=== PATIENT | female | born 1940 | race American Indian/Alaskan Native ===

== ENCOUNTER 2021-04-15 16:57 | Inpatient (IN) | payer MEDICARE ==
--- NOTE | 2021-04-15 17:09 | Emergency Department Report ---
ED Altered Mental Status HPI - General Stated Complaint: STROKE PUI?: No Time Seen by Provider: 04/15/21 17:02 - History of Present Illness Initial Comments: CC: low blood sugar, altered mental status HPI: This is an 80-year-old female with history of hypertension, diabetes mellitus, [place], breast CA in remission, TIA who presents with hypoglycemia and altered mental status. Nephew at the bedside providing history. Patient is currently altered nonverbal. Patient spoke with nephew per phone. She felt her sugar was low. She informed her nephew that she was can get something to eat. Nephew did not hear from patient throughout the day. He has neighbor to check on her. Patient was altered. EMS found patient flat on her back in bed. She was not responsive. Blood sugar 38 per EMS. Patient received 1 ampoule of dextrose. She continued to be unresponsive. Patient is moaning with eyes deviated to the left initially. Patient is moving eyes and right upper extremity. However she continues to moan unintelligibly. MD Complaint: altered mental status, decreased responsiveness -: unknown (Sometime after 10:30 AM) Severity: severe Consistency of Symptoms: waxing and waning Context: diabetes - Related Data Allergies Allergy/AdvReac Type Severity Reaction Status Date / Time No Known Allergies Allergy Unverified 04/15/21 17:41 ED Review of Systems ROS: Stated complaint: STROKE Other details as noted in HPI Comment: Unobtainable due to pts medical conditions (Altered mental status) ED Past Medical Hx - Past Medical History Previous Medical History?: Yes Hx Hypertension: Yes Hx Heart Attack/AMI: Yes Hx Diabetes: Yes - Surgical History Past Surgical History?: Yes Hx Cholecystectomy: Yes Additional Surgical History: Double mastectomy ED Physical Exam - General Limitations: Altered Mental Status General appearance: lethargic, in distress (severe respiratory distress, stridorous respirations, ), other (Drooling moaning moving right arm, dazed, not making eye contact, no response to voice or noxious stimuli) - Head Head exam: Present: atraumatic, normocephalic - Eye Eye exam: Present: normal appearance - ENT ENT exam: Present: mucous membranes moist - Neck Neck exam: Present: normal inspection, full ROM - Respiratory Respiratory exam: Present: stridor, accessory muscle use (Abdominal retractions), prolonged expiratory, other. Absent: wheezes, rales, rhonchi - Cardiovascular Cardiovascular Exam: Present: regular rate, normal rhythm, normal heart sounds. Absent: systolic murmur, diastolic murmur, rubs, gallop - GI/Abdominal GI/Abdominal exam: Present: soft, distended, diminished bowel sounds - Extremities Exam Extremities exam: Present: pedal edema, other (Lower extremity nonpitting edema) - Neurological Exam Neurological exam: Present: altered, other (Nonverbal moaning) - Psychiatric Psychiatric exam: Present: flat affect - Skin Skin exam: Present: pallor, other (Cool to touch). Absent: rash ED Course Vital Signs 04/15/21 04/15/21 17:06 17:43 Pulse Rate 58 L 46 L Respiratory 21 Rate Blood Pressure 132/58 O2 Sat by Pulse 95 100 Oximetry - Reevaluation(s) Reevaluation #1: 04/15/21 18:10 I was informed by nurse that patient was biting her tongue and the ETT. Patient appeared to have repetitive movements of the right upper extremity. I suspect seizure activity. Patient was given lorazepam rocuronium and increased sedation with propofol Reevaluation #2: 04/15/21 19:28 Profound hypotension called to the bedside to to prevent discontinued - Intubation Time Out Performed: Yes Sedative: Etomidate Mg Given: 20 Paralytic: Succinylcholine Mg Given: 120 Laryngoscope: Mary Size: 4 Assist Device Used: fiberoptic device ET Tube Size: 7.5 Tube Secured Depth (cm): 24 Tube Secured Location: teeth Tube Placement Confirmation: visualized tube passing t Patient Tolerated Procedure: well, no complications Intubation Complications: none - Lab Data Result diagrams: 04/15/21 17:20 04/15/21 17:20 Lab Results 04/15/21 04/15/21 04/15/21 Range/Units 17:20 17:20 17:20 WBC 11.2 H (4.5-11.0) K/mm3 RBC 4.45 (3.65-5.03) M/mm3 Hgb 13.9 (10.1-14.3) gm/dl Hct 43.0 H (30.3-42.9) % MCV 97 (79-97) fl MCH 31 (28-32) pg MCHC 32 (30-34) % RDW 15.3 H (13.2-15.2) % Plt Count 214 (140-440) K/mm3 Lymph % (Auto) 12.8 L (13.4-35.0) % Mcminn % (Auto) 4.1 (0.0-7.3) % Eos % (Auto) 0.3 (0.0-4.3) % Baso % (Auto) 0.4 (0.0-1.8) % Lymph # (Auto) 1.4 (1.2-5.4) K/mm3 Mcminn # (Auto) 0.5 (0.0-0.8) K/mm3 Eos # (Auto) 0.0 (0.0-0.4) K/mm3 Baso # (Auto) 0.0 (0.0-0.1) K/mm3 Seg Neutrophils % 82.4 H (40.0-70.0) % Seg Neutrophils # 9.3 H (1.8-7.7) K/mm3 PT 12.2 (12.2-14.9) Sec. INR 0.91 (0.87-1.13) APTT 31.8 (24.2-36.6) Sec. Sodium 129 L (137-145) mmol/L Potassium 7.1 H* (3.6-5.0) mmol/L Chloride 91.9 L (98-107) mmol/L Carbon Dioxide 27 (22-30) mmol/L Anion Gap 17 mmol/L BUN 35 H (7-17) mg/dL Creatinine 2.8 H (0.6-1.2) mg/dL Estimated GFR 20 ml/min BUN/Creatinine Ratio 13 % Glucose 92 (65-100) mg/dL Lactic Acid (0.7-2.0) mmol/L Calcium 10.2 (8.4-10.2) mg/dL Total Bilirubin 0.30 (0.1-1.2) mg/dL AST 69 H (5-40) units/L ALT 36 (7-56) units/L Alkaline Phosphatase 84 (35-129) units/L Ammonia (25-60) umol/L Total Creatine Kinase (30-135) units/L Troponin T (0.00-0.029) ng/mL NT-Pro-B Natriuret Pep (0-900) pg/mL Total Protein 7.9 (6.3-8.2) g/dL Albumin 4.5 (3.9-5) g/dL Albumin/Globulin Ratio 1.3 % TSH (0.270-4.200) mlU/mL Salicylates (2.8-20.0) mg/dL Acetaminophen (10.0-30.0) ug/mL Plasma/Serum Alcohol (0-0.07) % 04/15/21 04/15/21 04/15/21 Range/Units 17:20 17:20 17:20 WBC (4.5-11.0) K/mm3 RBC (3.65-5.03) M/mm3 Hgb (10.1-14.3) gm/dl Hct (30.3-42.9) % MCV (79-97) fl MCH (28-32) pg MCHC (30-34) % RDW (13.2-15.2) % Plt Count (140-440) K/mm3 Lymph % (Auto) (13.4-35.0) % Mcminn % (Auto) (0.0-7.3) % Eos % (Auto) (0.0-4.3) % Baso % (Auto) (0.0-1.8) % Lymph # (Auto) (1.2-5.4) K/mm3 Mcminn # (Auto) (0.0-0.8) K/mm3 Eos # (Auto) (0.0-0.4) K/mm3 Baso # (Auto) (0.0-0.1) K/mm3 Seg Neutrophils % (40.0-70.0) % Seg Neutrophils # (1.8-7.7) K/mm3 PT (12.2-14.9) Sec. INR (0.87-1.13) APTT (24.2-36.6) Sec. Sodium (137-145) mmol/L Potassium (3.6-5.0) mmol/L Chloride (98-107) mmol/L Carbon Dioxide (22-30) mmol/L Anion Gap mmol/L BUN (7-17) mg/dL Creatinine (0.6-1.2) mg/dL Estimated GFR ml/min BUN/Creatinine Ratio % Glucose (65-100) mg/dL Lactic Acid 1.50 (0.7-2.0) mmol/L Calcium (8.4-10.2) mg/dL Total Bilirubin (0.1-1.2) mg/dL AST (5-40) units/L ALT (7-56) units/L Alkaline Phosphatase (35-129) units/L Ammonia 46.0 (25-60) umol/L Total Creatine Kinase (30-135) units/L Troponin T (0.00-0.029) ng/mL NT-Pro-B Natriuret Pep (0-900) pg/mL Total Protein (6.3-8.2) g/dL Albumin (3.9-5) g/dL Albumin/Globulin Ratio % TSH (0.270-4.200) mlU/mL Salicylates (2.8-20.0) mg/dL Acetaminophen (10.0-30.0) ug/mL Plasma/Serum Alcohol 0.02 (0-0.07) % 04/15/21 04/15/21 04/15/21 Range/Units 17:20 17:20 17:20 WBC (4.5-11.0) K/mm3 RBC (3.65-5.03) M/mm3 Hgb (10.1-14.3) gm/dl Hct (30.3-42.9) % MCV (79-97) fl MCH (28-32) pg MCHC (30-34) % RDW (13.2-15.2) % Plt Count (140-440) K/mm3 Lymph % (Auto) (13.4-35.0) % Mcminn % (Auto) (0.0-7.3) % Eos % (Auto) (0.0-4.3) % Baso % (Auto) (0.0-1.8) % Lymph # (Auto) (1.2-5.4) K/mm3 Mcminn # (Auto) (0.0-0.8) K/mm3 Eos # (Auto) (0.0-0.4) K/mm3 Baso # (Auto) (0.0-0.1) K/mm3 Seg Neutrophils % (40.0-70.0) % Seg Neutrophils # (1.8-7.7) K/mm3 PT (12.2-14.9) Sec. INR (0.87-1.13) APTT (24.2-36.6) Sec. Sodium (137-145) mmol/L Potassium (3.6-5.0) mmol/L Chloride (98-107) mmol/L Carbon Dioxide (22-30) mmol/L Anion Gap mmol/L BUN (7-17) mg/dL Creatinine (0.6-1.2) mg/dL Estimated GFR ml/min BUN/Creatinine Ratio % Glucose (65-100) mg/dL Lactic Acid (0.7-2.0) mmol/L Calcium (8.4-10.2) mg/dL Total Bilirubin (0.1-1.2) mg/dL AST (5-40) units/L ALT (7-56) units/L Alkaline Phosphatase (35-129) units/L Ammonia (25-60) umol/L Total Creatine Kinase 1000 H (30-135) units/L Troponin T 0.023 (0.00-0.029) ng/mL NT-Pro-B Natriuret Pep (0-900) pg/mL Total Protein (6.3-8.2) g/dL Albumin (3.9-5) g/dL Albumin/Globulin Ratio % TSH 14.190 H (0.270-4.200) mlU/mL Salicylates 4.1 (2.8-20.0) mg/dL Acetaminophen (10.0-30.0) ug/mL Plasma/Serum Alcohol (0-0.07) % 04/15/21 04/15/21 Range/Units 17:20 17:20 WBC (4.5-11.0) K/mm3 RBC (3.65-5.03) M/mm3 Hgb (10.1-14.3) gm/dl Hct (30.3-42.9) % MCV (79-97) fl MCH (28-32) pg MCHC (30-34) % RDW (13.2-15.2) % Plt Count (140-440) K/mm3 Lymph % (Auto) (13.4-35.0) % Mcminn % (Auto) (0.0-7.3) % Eos % (Auto) (0.0-4.3) % Baso % (Auto) (0.0-1.8) % Lymph # (Auto) (1.2-5.4) K/mm3 Mcminn # (Auto) (0.0-0.8) K/mm3 Eos # (Auto) (0.0-0.4) K/mm3 Baso # (Auto) (0.0-0.1) K/mm3 Seg Neutrophils % (40.0-70.0) % Seg Neutrophils # (1.8-7.7) K/mm3 PT (12.2-14.9) Sec. INR (0.87-1.13) APTT (24.2-36.6) Sec. Sodium (137-145) mmol/L Potassium (3.6-5.0) mmol/L Chloride (98-107) mmol/L Carbon Dioxide (22-30) mmol/L Anion Gap mmol/L BUN (7-17) mg/dL Creatinine (0.6-1.2) mg/dL Estimated GFR ml/min BUN/Creatinine Ratio % Glucose (65-100) mg/dL Lactic Acid (0.7-2.0) mmol/L Calcium (8.4-10.2) mg/dL Total Bilirubin (0.1-1.2) mg/dL AST (5-40) units/L ALT (7-56) units/L Alkaline Phosphatase (35-129) units/L Ammonia (25-60) umol/L Total Creatine Kinase (30-135) units/L Troponin T (0.00-0.029) ng/mL NT-Pro-B Natriuret Pep 697.9 (0-900) pg/mL Total Protein (6.3-8.2) g/dL Albumin (3.9-5) g/dL Albumin/Globulin Ratio % TSH (0.270-4.200) mlU/mL Salicylates (2.8-20.0) mg/dL Acetaminophen 5.0 L (10.0-30.0) ug/mL Plasma/Serum Alcohol (0-0.07) % - EKG Data -: EKG Interpreted by Ri EKG shows normal: sinus rhythm, axis Rate: bradycardia 04/15/21 18:10 EKG obtained 1736 EKG interpreted by mo Sinus bradycardia rate 45 bpm prolonged FL interval left bundle branch block nonspecific T wave pattern prolonged QTC - Medical Decision Making 1. Acute encephalopathy metabolic with respiratory failure patient required intubation for immediate airway control. Differential diagnosis: Status epilepticus due to prolonged hypoglycemia, acute CVA 2. Bradycardia, with peak T waves seen on telemetry monitor, patient was given calcium bicarbonate prior to receiving lab results, hyperkalemia 7.1 3. ROJELIO: Suspect ATN due to rhabdomyolysis 4. Rhabdomyolysis 5. Elevated TSH: Myxedema coma? 6. Acute persistent hypoglycemia, blood sugar 191 arrival repeat 92 repeat 41 [id number] ordered Critical Care Time: Yes Critical care time in (mins) excluding proc time.: 100 Critical care attestation.: If time is entered above; I have spent that time in minutes in the direct care of this critically ill patient, excluding procedure time. 100 minutes of critical care time excluding procedures were used in the care of the patient. I came immediately to the bedside upon patient's arrival. I obtained history from EMS at the bedside. I obtained history from nephew at the bedside. I immediately asked for Accu-Chek. Blood sugar 191 upon arrival. I discussed treatment plan with the nursing team members. I reviewed electronic record. I kept the family member informed. Patient required multiple interventions and reassessments. ED Disposition Clinical Impression: Acute metabolic encephalopathy due to hypoglycemia, Status epilepticus, Acute kidney injury, Rhabdomyolysis Disposition: OP ADMIT IP TO THIS HOSP Is pt being admited?: Yes Does the pt Need Aspirin: No Condition: Fair
[2021-04-15] MEDS ORDERED: LIP THERAPY VASELINE TP PRN (17:24)
[2021-04-15] MEDS ORDERED: ETOMIDATE 20 MG/10 ML INJ IV ONE ×2 (17:26→23:50)
[2021-04-15] MEDS ORDERED: SUCCINYLCHOLINE CHLORIDE 200 MG/10 ML INJ MDV IV ONE (17:26)
[2021-04-15] MEDS ORDERED: SODIUM BICARB 8.4% 50 MEQ/50 ML SYRINGE IV ONE ×3 (17:32→18:53)
[2021-04-15] MEDS ORDERED: CALCIUM CHLORIDE 1,000 MG/10 ML SYRINGE IV ONE (17:33)
[2021-04-15 17:40] LABS: Basophils % (Auto) 0.4 % (0.0-1.8); Eosinophils % (Auto) 0.3 % (0.0-4.3); Hemoglobin 13.9 gm/dl (10.1-14.3); Lymphocytes # (Auto) 1.4 K/mm3 (1.2-5.4); Lymphocytes % (Auto) 12.8 % (13.4-35.0); Mean Corpuscular HGB Conc 32 % (30-34); Mean Corpuscular Volume 97 fl (79-97); Monocytes # (Auto) 0.5 K/mm3 (0.0-0.8); Monocytes % (Auto) 4.1 % (0.0-7.3); Platelet Count 214 K/mm3 (140-440); Red Blood Count 4.45 M/mm3 (3.65-5.03); Red Cell Distribution Width 15.3 % (13.2-15.2)
[2021-04-15] MEDS ORDERED: LORazepam 2 MG/ML VIAL IV ONE ×2 (17:40→17:55)
[2021-04-15 17:48] LABS: INR 0.91 (0.87-1.13)
[2021-04-15 17:49] LABS: Partial Thromboplastin Time 31.8 Sec. (24.2-36.6)
[2021-04-15] MEDS ORDERED: LORazepam 2 MG/ML VIAL ONE ×2 (17:49→17:59)
[2021-04-15] MEDS ORDERED: MIDAZOLAM 5 MG/5 ML INJ MDV IV NR ×2 (18:00)
[2021-04-15] MEDS ORDERED: levETIRAcetam 1000 MG/NS 0.75% 1,000 MG/100 ML BAG IV ONE (18:07)
--- NOTE | 2021-04-15 18:22 | XRay Report ---
CHEST 1 VIEW 04/15/2021 5:35 PM INDICATION / CLINICAL INFORMATION: MAIN. COMPARISON: None available. FINDINGS: SUPPORT DEVICES: ET tube is noted with its tip approximately 3.3 cm above level the mary. HEART / MEDIASTINUM: No significant abnormality. LUNGS / PLEURA: No significant pulmonary or pleural abnormality. No pneumothorax. ADDITIONAL FINDINGS: No significant additional findings. IMPRESSION: 1. ET tube noted with its tip approximately 3.3 cm above level of the mary. 2. Lung nguyen are clear. Signer Name: Kris Carmen MD Signed: 04/15/2021 6:17 PM Workstation Name: [id number]
[2021-04-15 18:32] LABS: Albumin 4.5 g/dL (3.9-5); Calcium 10.2 mg/dL (8.4-10.2)
--- NOTE | 2021-04-15 18:41 | Cat Scan Report ---
CT BRAIN: 04/15/2021 INDICATION / CLINICAL INFORMATION: Altered mental status. COMPARISON: None available. FINDINGS: BRAIN/INTRACRANIAL STRUCTURES: Unenhanced CT images of the brain demonstrate no evidence of acute int racranial abnormality. Ventricles and sulci are prominent in size, consistent with age-related atrophic change. Prominent chronic white matter hypoattenuation is present throughout the cerebral hemispheric white m atter, consistent with chronic small vessel ischemic change. There is no CT evidence of acute large vessel territory ischemic injury, hemorrhage, or mass. There a re no abnormal extra-axial fluid collections. EXTRACRANIAL STRUCTURES: Unremarkable. IMPRESSION: No acute abnormality. All CT scans at this location are performed using dose reduction to ALARA by means of automated expos ure control. Signer Name: Josias Diaz MD Signed: 04/15/2021 6:37 PM Workstation Name: [id number]
[2021-04-15] MEDS ORDERED: VECURONIUM 10 MG INJ SDV IV ONE (18:55)
[2021-04-15] MEDS ORDERED: CALCIUM GLUCONATE 1,000 MG in SODIUM CHLORIDE 0.9% 100 ML IV ONE ×2 (18:55→18:59)
--- NOTE | 2021-04-15 18:59 | History and Physical Report ---
History of Present Illness History of present illness: 80 YO Female with HTN, DM, [place], BrCA in Remission, Vascular Dementia, Cerebral Atherosclerosis presents to ED for evaluation. tated Complaint: STROKE PUI?: No Time Seen by Provider: 04/15/21 17:02 - History of Present Illness Initial Comments: CC: low blood sugar, altered mental status HPI: This is an 80-year-old female with history of hypertension, diabetes mellitus, [place], breast CA in remission, TIA who presents with hypoglycemia and altered mental status. Nephew at the bedside providing history. Patient is currently altered nonverbal. Patient spoke with nephew per phone. She felt her sugar was low. She informed her nephew that she was can get something to eat. Nephew did not hear from patient throughout the day. He has neighbor to check on her. Patient was altered. EMS found patient flat on her back in bed. She was not responsive. Blood sugar 38 per EMS. Patient received 1 ampoule of dextrose. She continued to be unresponsive. Patient is moaning with eyes deviated to the left initially. Patient is moving eyes and right upper extremity. However she continues to moan unintelligibly. MD Complaint: altered mental status, decreased responsiveness -: unknown (Sometime after 10:30 AM) Severity: severe Consistency of Symptoms: waxing and waning Context: diabetes - Related Data Allergies Allergy/AdvReac Type Severity Reaction Status Date / Time No Known Allergies Allergy Unverified 04/15/21 17:41 ED Review of Systems ROS: Stated complaint: STROKE Other details as noted in HPI Comment: Unobtainable due to pts medical conditions (Altered mental status) ED Past Medical Hx - Past Medical History Previous Medical History?: Yes Hx Hypertension: Yes Hx Heart Attack/AMI: Yes Hx Diabetes: Yes - Surgical History Past Surgical History?: Yes Hx Cholecystectomy: Yes Additional Surgical History: Double mastectomy ED Physical Exam Medications and Allergies Allergies Allergy/AdvReac Type Severity Reaction Status Date / Time No Known Allergies Allergy Unverified 04/15/21 17:41 Active Meds: Active Medications Hydrophilic Ointment (Lip Therapy Vaseline) 1 applic TP Q2HR PRN PRN Reason: Dry Lips Propofol (Diprivan 10 Mg/Ml) 1,000 mg in 100 mls @ 2.91 mls/hr IV TITR [id number]; Protocol Last Titration: 04/15/21 18:56 Dose: 10 mcg/kg/min, 5.82 mls/hr Documented by: Calcium Gluconate 1,000 mg/ (Sodium Chloride) 110 mls @ 660 mls/hr IV ONCE ONE Stop: 04/15/21 19:04 Calcium Gluconate 1,000 mg/ (Sodium Chloride) 110 mls @ 660 mls/hr IV ONCE ONE Stop: 04/15/21 19:02 Midazolam HCl (Midazolam 5 Mg/5 Ml Inj Mdv) 5 mg IV ONCE NR Stop: 04/16/21 17:59 Last Admin: 04/15/21 17:30 Dose: 5 mg Documented by: Midazolam HCl (Midazolam 5 Mg/5 Ml Inj Mdv) 5 mg IV ONCE NR Stop: 04/16/21 17:59 Multi-Ingred Cream/Lotion/Oil/Oint (Mineral Oil/Petrolatum, White Ophth Oint 3.5 Gm) 1 applic OU Q4HR PRN PRN Reason: Dry Eye(s) Exam - Constitutional Vitals: Temp Pulse Resp BP Pulse Ox 46 L 21 132/58 100 04/15/21 17:43 04/15/21 17:06 04/15/21 17:43 04/15/21 17:43 HEART Score - HEART Score Troponin: Troponin T 0.023 ng/mL (0.00-0.029) 04/15/21 17:20 Results - Labs CBC & Chem 7: 04/15/21 17:20 04/15/21 17:20 Labs: Abnormal lab results 04/15/21 04/15/21 04/15/21 Range/Units 17:20 17:20 17:20 WBC 11.2 H (4.5-11.0) K/mm3 Hct 43.0 H (30.3-42.9) % RDW 15.3 H (13.2-15.2) % Lymph % (Auto) 12.8 L (13.4-35.0) % Seg Neutrophils % 82.4 H (40.0-70.0) % Seg Neutrophils # 9.3 H (1.8-7.7) K/mm3 Sodium 129 L (137-145) mmol/L Potassium 7.1 H* (3.6-5.0) mmol/L Chloride 91.9 L (98-107) mmol/L BUN 35 H (7-17) mg/dL Creatinine 2.8 H (0.6-1.2) mg/dL AST 69 H (5-40) units/L Total Creatine Kinase 1000 H (30-135) units/L TSH (0.270-4.200) mlU/mL Acetaminophen (10.0-30.0) ug/mL 04/15/21 04/15/21 Range/Units 17:20 17:20 WBC (4.5-11.0) K/mm3 Hct (30.3-42.9) % RDW (13.2-15.2) % Lymph % (Auto) (13.4-35.0) % Seg Neutrophils % (40.0-70.0) % Seg Neutrophils # (1.8-7.7) K/mm3 Sodium (137-145) mmol/L Potassium (3.6-5.0) mmol/L Chloride (98-107) mmol/L BUN (7-17) mg/dL Creatinine (0.6-1.2) mg/dL AST (5-40) units/L Total Creatine Kinase (30-135) units/L TSH 14.190 H (0.270-4.200) mlU/mL Acetaminophen 5.0 L (10.0-30.0) ug/mL Assessment and Plan - Patient Problems (1) Acute hypoxemic respiratory failure Current Visit: Yes Status: Acute Plan to address problem: Patient intubated, and on ventilatory support: Wean vent as tolerated, daily sedation holiday, spontaneous breathing trial daily, The high probability of a clinically significant, sudden or life threatening deterioration of the [neuro, pulmonary, renal] system(s) required my full and direct attention, intervention and personal management. The aggregate critical care time was [65] minutes. This time is in addition to time spent performing reported procedures but includes the following: [x] Data Review and interpretation [x] Patient assessment and monitoring of vital signs [x] Documentation [x] Medication orders and management (2) Acute kidney injury (ROJELIO) with acute tubular necrosis (ATN) Current Visit: Yes Status: Acute Plan to address problem: IV fluid resuscitation therapy, monitor urine output every shift, urine electrolytes, nephrology team consulted. (3) Hyperkalemia Current Visit: Yes Status: Acute Plan to address problem: Potassium level, calcium gluconate, no EKG changes at this time, repeat potassium level in 3 hours. (4) Hyponatremia syndrome Current Visit: Yes Status: Acute Plan to address problem: IV fluid resuscitation therapy, BMP, repeat BMP in a.m. (5) Systemic inflammatory response syndrome Current Visit: Yes Status: Acute Plan to address problem: CBC, CMP, urinalysis, chest x-ray, empiric IV antibiotic therapy x1 dose, repeat CBC in a.m. (6) Symptomatic bradycardia Current Visit: Yes Status: Acute Plan to address problem: Transcutaneous pacing, atropine at bedside, cardiology team consulted, echocardiogram ordered and is pending at time of admission. (7) Rhabdomyolysis Current Visit: Yes Status: Acute Qualifiers: Encounter type: initial encounter Plan to address problem: CK level, IV fluid resuscitation therapy, monitor urine output every shift, repeat CK level in a.m. Nephrology team consulted. (8) DVT prophylaxis Current Visit: Yes Status: Acute Plan to address problem: SCD to bilateral lower extremities while in bed, prophylactic anticoagulation (9) Advance care planning Current Visit: Yes Status: Acute Plan to address problem: Disease education conducted, care plan discussed, diagnoses discussed, prognosis discussed, patient is full code, patient family knowledges understanding and agreement with care plan, +30 minutes.
[2021-04-15] MEDS ORDERED: DEXTROSE 50% IN WATER (25GM) 50 ML SYRINGE IV ONE (19:04)
[2021-04-15] MEDS ORDERED: cefTRIAXone/NS 2 GM/100 ML 2 GM/100 ML BAG IV ONE (19:06)
[2021-04-15] MEDS: DEXTROSE 10% IN WATER 1,000 ML IV SCH (19:30)
[2021-04-15] MEDS ORDERED: ATROPINE 0.1% (1 MG/10 ML) CARDIAC SYRINGE IV ONE (19:33)
[2021-04-15] MEDS ORDERED: ROCURONIUM 50 MG/5 ML INJ IV ONE (23:50)
[2021-04-15] MEDS ORDERED: SUCCINYLCHOLINE CHLORIDE 200 MG/10 ML INJ MDV ONE (23:50)
[2021-04-15] MEDS ORDERED: MIDAZOLAM 5 MG/5 ML INJ MDV IV ONE (23:50)
[2021-04-15] MEDS: HEPARIN 5,000 UNIT/1 ML VIAL SUB-Q SCH (23:59)
[2021-04-16 00:28] LABS: Creatinine,Urine 24.4 mg/dL (0.1-20.0)
[2021-04-16 00:29] LABS: Bacteria,Urine 1+ /HPF (Negative); Bilirubin,Urine NEG (Negative); Blood,Urine SM (Negative); Color,Urine Straw (Yellow); Urobilinogen,Urine < 2.0 mg/dL (<2.0)
[2021-04-16] MEDS: DEXTROSE 10% IN WATER 1,000 ML IV SCH ×2 (02:38→09:26)
[2021-04-16 05:36] LABS: Hematocrit 43.4 % (30.3-42.9); Mean Corpuscular HGB Conc 32 % (30-34); Mean Corpuscular Volume 98 fl (79-97); Platelet Count 200 K/mm3 (140-440); Red Blood Count 4.43 M/mm3 (3.65-5.03); Red Cell Distribution Width 15.2 % (13.2-15.2)
[2021-04-16 05:55] LABS: Albumin 3.8 g/dL (3.9-5); Calcium 10.4 mg/dL (8.4-10.2)
[2021-04-16 07:37] LABS: Anisocytosis Few; Band Neutrophils # (Manual) 0.6 K/mm3; Platelet Estimate Consistent w Auto; Total Cells Counted 100
--- NOTE | 2021-04-16 08:56 | Progress Note ---
<JEREMYPURNIMAElvia - Last Filed: 04/16/21 18:35> Assessment and Plan Assessment and plan: This is a 80-year-old female with HTN, DM, NH, breast CA s/p double mastectomy, TIA who presented with hypoglycemia, AMS who was admitted with SIRS, symptomatic bradycardia, acute metabolic encephalopathy, acute hypoxic respiratory failure, elevated TSH, hyperglycemia, hyponatremia, hypokalemia, ROJELIO and rhabdomyolysis Acute metabolic encephalopathy Acute hypoxic respiratory failure First-degree heart block Hyperkalemia Hyponatremia Hypochloremia Elevated TSH Mild rhabdomyolysis Leukocytosis Hypertension Diabetes mellitus -[facility], cardiology, nephrology, neurology, nutrition consulted, appreciate recommendations -04/15 CT head shows age-related atrophic change, chronic small vessel ischemic change, no CT evidence of acute large vessel territory ischemic injury, hemorrhage or mass -S/p antibiotic therapy x1 -S/p D10 -Accu-Cheks every 6, SSI -TF -Deep 5W x1 L per [facility] -S/p IV calcium gluconate, regular insulin, -S/p transcutaneous pacing, intermittent demand pacer in place -Echocardiogram pending -Renal ultrasound pending -Avoid ACEi/ARB in setting of ROJELIO -Avoid AV arron blocking agents -Avoid nephrotoxic agents and renally dose medications -VAP bundle, wean mechanical ventilation as tolerated -T3/T4 pending -Blood pressure monitor per protocol -IV hydralazine as needed -Trend CBC, BMP, CK DVT/GI prophylaxis: Heparin subcu, PPI, SCDs to bilateral lower extremities while in bed Disposition: ICU The high probability of a clinically significant, sudden or life threatening deterioration of the [multi] system(s) required my full and direct attention, intervention and personal management. The aggregate critical care time was [35] minutes. This time is in addition to time spent performing reported procedures but includes the following: [x] Data Review and interpretation [x] Patient assessment and monitoring of vital signs [x] Documentation [x] Medication orders and management History Interval history: This is a 80-year-old female with hypertension, diabetes mellitus, NH, breast cancer s/p double mastectomy, and a TIA who presented with hypoglycemia and alt ered mental status on 04/15 via EMS. Per EMS patient was unresponsive on their arrival and her blood glucose was 38 and she received 1 amp of dextrose patient continued to be unresponsive and only moaned with her eyes deviating to the left. Work-up in the emergency department revealed SIRS, symptomatic bradycardia, acute metabolic encephalopathy, acute hypoxic respiratory failure, elevated TSH, hyperglycemia, hyponatremia, hyperkalemia, acute kidney injury with ATN, and rhabdomyolysis 04/16: Neurology consulted, COVID-19 PCR negative, D10 drip decreased and eventually discontinued by [facility] and started on D5W for 1 L. Hydralazine as needed. Patient had hyper kalemia today and was treated with D50, insulin and Kayexalate. This time examination patient is on assist control tidal volume 450 , rate of 16, PEEP of 6 and 25% FiO2. Hospitalist Physical - Constitutional Vitals: Temp Pulse Resp BP Pulse Ox 99.7 F H 73 16 148/59 99 04/16/21 08:00 04/16/21 06:20 04/16/21 06:20 04/16/21 06:20 04/16/21 06:20 General appearance: Present: no acute distress - EENT Eyes: Present: PERRL ENT: clear oral mucosa - Neck Neck: Present: normal ROM - Respiratory Respiratory effort: normal Respiratory: bilateral: diminished - Cardiovascular Rhythm: regular Heart Sounds: Present: S1 & S2. Absent: systolic murmur, diastolic murmur - Extremities Extremities: no ischemia, pulses intact, pulses symmetrical, No edema, normal temperature, normal color Peripheral Pulses: within normal limits - Abdominal General gastrointestinal: soft, non-tender, non-distended, normal bowel sounds - Integumentary Integumentary: Present: warm, dry - Psychiatric Psychiatric: other (sedated) - Neurologic Neurologic: other (sedated) - Allied Health Allied health notes reviewed: nursing, RT HEART Score - HEART Score Troponin: Troponin T 0.023 ng/mL (0.00-0.029) 04/15/21 17:20 Results - Labs CBC & Chem 7: 04/16/21 05:02 04/16/21 05:02 Labs: Laboratory Last Values WBC 21.2 K/mm3 (4.5-11.0) H 04/16/21 05:02 RBC 4.43 M/mm3 (3.65-5.03) 04/16/21 05:02 Hgb 14.0 gm/dl (10.1-14.3) 04/16/21 05:02 Hct 43.4 % (30.3-42.9) H 04/16/21 05:02 MCV 98 fl (79-97) H 04/16/21 05:02 MCH 32 pg (28-32) 04/16/21 05:02 MCHC 32 % (30-34) 04/16/21 05:02 RDW 15.2 % (13.2-15.2) 04/16/21 05:02 Plt Count 200 K/mm3 (140-440) 04/16/21 05:02 Lymph % (Auto) 12.8 % (13.4-35.0) L 04/15/21 17:20 [place] % (Auto) 4.1 % (0.0-7.3) 04/15/21 17:20 Eos % (Auto) 0.3 % (0.0-4.3) 04/15/21 17:20 Baso % (Auto) 0.4 % (0.0-1.8) 04/15/21 17:20 Lymph # (Auto) 1.4 K/mm3 (1.2-5.4) 04/15/21 17:20 [place] # (Auto) 0.5 K/mm3 (0.0-0.8) 04/15/21 17:20 Eos # (Auto) 0.0 K/mm3 (0.0-0.4) 04/15/21 17:20 Baso # (Auto) 0.0 K/mm3 (0.0-0.1) 04/15/21 17:20 Add Manual Diff Complete 04/16/21 05:02 Total Counted 100 04/16/21 05:02 Seg Neutrophils % 82.4 % (40.0-70.0) H 04/15/21 17:20 Seg Neuts % (Manual) 84.0 % (40.0-70.0) H 04/16/21 05:02 Band Neutrophils % 3.0 % 04/16/21 05:02 Lymphocytes % (Manual) 2.0 % (13.4-35.0) L 04/16/21 05:02 Monocytes % (Manual) 10.0 % (0.0-7.3) H 04/16/21 05:02 Metamyelocytes % 1.0 % 04/16/21 05:02 Nucleated RBC % Not Reportable 04/16/21 05:02 Seg Neutrophils # 9.3 K/mm3 (1.8-7.7) H 04/15/21 17:20 Seg Neutrophils # Man 17.8 K/mm3 (1.8-7.7) H 04/16/21 05:02 Band Neutrophils # 0.6 K/mm3 04/16/21 05:02 Lymphocytes # (Manual) 0.4 K/mm3 (1.2-5.4) L 04/16/21 05:02 Abs React Lymphs (Man) 0.0 K/mm3 04/16/21 05:02 Monocytes # (Manual) 2.1 K/mm3 (0.0-0.8) H 04/16/21 05:02 Eosinophils # (Manual) 0.0 K/mm3 (0.0-0.4) 04/16/21 05:02 Basophils # (Manual) 0.0 K/mm3 (0.0-0.1) 04/16/21 05:02 Metamyelocytes # 0.2 K/mm3 04/16/21 05:02 Myelocytes # 0.0 K/mm3 04/16/21 05:02 Promyelocytes # 0.0 K/mm3 04/16/21 05:02 Blast Cells # 0.0 K/mm3 04/16/21 05:02 WBC Morphology Not Reportable 04/16/21 05:02 Hypersegmented Neuts Not Reportable 04/16/21 05:02 Hyposegmented Neuts Not Reportable 04/16/21 05:02 Hypogranular Neuts Not Reportable 04/16/21 05:02 Smudge Cells Not Reportable 04/16/21 05:02 Toxic Granulation Not Reportable 04/16/21 05:02 Toxic Vacuolation Not Reportable 04/16/21 05:02 Dohle Bodies Not Reportable 04/16/21 05:02 Pelger-Huet Anomaly Not Reportable 04/16/21 05:02 Peterson Rods Not Reportable 04/16/21 05:02 Platelet Estimate Consistent w auto 04/16/21 05:02 Clumped Platelets Not Reportable 04/16/21 05:02 Plt Clumps, EDTA Not Reportable 04/16/21 05:02 Large Platelets Not Reportable 04/16/21 05:02 Giant Platelets Not Reportable 04/16/21 05:02 Platelet Satelliting Not Reportable 04/16/21 05:02 Plt Morphology Comment Not Reportable 04/16/21 05:02 RBC Morphology Not Reportable 04/16/21 05:02 Dimorphic RBCs Not Reportable 04/16/21 05:02 Polychromasia Not Reportable 04/16/21 05:02 Hypochromasia Not Reportable 04/16/21 05:02 Poikilocytosis Not Reportable 04/16/21 05:02 Anisocytosis Few 04/16/21 05:02 Microcytosis Not Reportable 04/16/21 05:02 Macrocytosis Not Reportable 04/16/21 05:02 Spherocytes Not Reportable 04/16/21 05:02 Pappenheimer Bodies Not Reportable 04/16/21 05:02 Sickle Cells Not Reportable 04/16/21 05:02 Target Cells Not Reportable 04/16/21 05:02 Tear Drop Cells Not Reportable 04/16/21 05:02 Ovalocytes Not Reportable 04/16/21 05:02 Helmet Cells Not Reportable 04/16/21 05:02 [place] Bodies Not Reportable 04/16/21 05:02 [place] Rings Not Reportable 04/16/21 05:02 [place] Cells Not Reportable 04/16/21 05:02 Bite Cells Not Reportable 04/16/21 05:02 Crenated Cell Not Reportable 04/16/21 05:02 Elliptocytes Not Reportable 04/16/21 05:02 Acanthocytes (Spur) Not Reportable 04/16/21 05:02 Rouleaux Not Reportable 04/16/21 05:02 Hemoglobin C Crystals Not Reportable 04/16/21 05:02 Schistocytes Not Reportable 04/16/21 05:02 Malaria parasites Not Reportable 04/16/21 05:02 James Bodies Not Reportable 04/16/21 05:02 Hem Pathologist Commnt No 04/16/21 05:02 PT 12.2 Sec. (12.2-14.9) 04/15/21 17:20 INR 0.91 (0.87-1.13) 04/15/21 17:20 APTT 31.8 Sec. (24.2-36.6) 04/15/21 17:20 ABG pH 7.461 (7.320-7.450) H 04/16/21 03:43 POC ABG pCO2 39.9 mmHg (32.0-48.0) 04/16/21 03:43 POC ABG pO2 90.8 mmHg (83-108) 04/16/21 03:43 POC ABG HCO3 27.8 04/16/21 03:43 ABG O2 Saturation 97.5 (0-100) 04/16/21 03:43 POC ABG Base Excess 3.8 04/16/21 03:43 ABG Hemoglobin 14.5 (12.0-17.5) 04/16/21 03:43 ABG Oxyhemoglobin 96.2 (94-98) 04/16/21 03:43 ABG Methemoglobin 0.3 (0.0-1.5) 04/16/21 03:43 ABG Sodium 126.8 mmol/L (136.0-145.0) L 04/16/21 03:43 ABG Potassium 5.4 mmol/L (3.40-4.50) H 04/16/21 03:43 ABG Chloride 90.0 mmol/L (98-107) L 04/16/21 03:43 ABG Glucose 325 mg/dL (65-95) H 04/16/21 03:43 Carboxyhemoglobin 1.0 (0.5-1.5) 04/16/21 03:43 FiO2 % 25.0 04/16/21 03:43 Sodium 131 mmol/L (137-145) L 04/16/21 05:02 Potassium 5.9 mmol/L (3.6-5.0) H 04/16/21 05:02 Chloride 88.7 mmol/L (98-107) L 04/16/21 05:02 Carbon Dioxide 27 mmol/L (22-30) 04/16/21 05:02 Anion Gap 21 mmol/L 04/16/21 05:02 BUN 34 mg/dL (7-17) H 04/16/21 05:02 Creatinine 2.9 mg/dL (0.6-1.2) H 04/16/21 05:02 Estimated GFR 19 ml/min 04/16/21 05:02 BUN/Creatinine Ratio 12 % 04/16/21 05:02 Glucose 249 mg/dL (65-100) H 04/16/21 05:02 POC Glucose 391 mg/dL (70-105) H 04/16/21 03:55 Lactic Acid 1.50 mmol/L (0.7-2.0) 04/15/21 17:20 Calcium 10.4 mg/dL (8.4-10.2) H 04/16/21 05:02 Total Bilirubin 0.70 mg/dL (0.1-1.2) 04/16/21 05:02 AST 65 units/L (5-40) H 04/16/21 05:02 ALT 31 units/L (7-56) 04/16/21 05:02 Alkaline Phosphatase 79 units/L (35-129) 04/16/21 05:02 Ammonia 46.0 umol/L (25-60) 04/15/21 17:20 Total Creatine Kinase 1000 units/L (30-135) H 04/15/21 17:20 Troponin T 0.023 ng/mL (0.00-0.029) 04/15/21 17:20 NT-Pro-B Natriuret Pep 697.9 pg/mL (0-900) 04/15/21 17:20 Total Protein 6.3 g/dL (6.3-8.2) D 04/16/21 05:02 Albumin 3.8 g/dL (3.9-5) L 04/16/21 05:02 Albumin/Globulin Ratio 1.5 % 04/16/21 05:02 TSH 14.190 mlU/mL (0.270-4.200) H 04/15/21 17:20 Arterial Blood Glucose 325 mg/dL (65-95) H 04/16/21 03:43 Arterial Blood Ionized Calcium 5.0 mg/dL (4.6-5.3) 04/16/21 03:43 Urine Color Straw (Yellow) 04/16/21 00:09 Urine Turbidity Clear (Clear) 04/16/21 00:09 Urine pH 9.0 (5.0-7.0) H 04/16/21 00:09 Ur Specific Crane 1.009 (1.003-1.030) 04/16/21 00:09 Urine Protein 100 mg/dl mg/dL (Negative) 04/16/21 00:09 Urine Glucose (UA) 150 mg/dL (Negative) 04/16/21 00:09 Urine Ketones Neg mg/dL (Negative) 04/16/21 00:09 Urine Blood Sm (Negative) 04/16/21 00:09 Urine Nitrite Neg (Negative) 04/16/21 00:09 Urine Bilirubin Neg (Negative) 04/16/21 00:09 Urine Urobilinogen < 2.0 mg/dL (<2.0) 04/16/21 00:09 Ur Leukocyte Esterase Neg (Negative) 04/16/21 00:09 Urine WBC (Auto) 2.0 /HPF (0.0-6.0) 04/16/21 00:09 Urine RBC (Auto) 9.0 /HPF (0.0-6.0) 04/16/21 00:09 U Epithel Cells (Auto) < 1.0 /HPF (0-13.0) 04/16/21 00:09 Urine Bacteria (Auto) 1+ /HPF (Negative) 04/16/21 00:09 Urine Creatinine 24.4 mg/dL (0.1-20.0) H 04/16/21 00:12 Urine Sodium 97 mmol/L 04/16/21 00:12 Salicylates 4.1 mg/dL (2.8-20.0) 04/15/21 17:20 Acetaminophen 5.0 ug/mL (10.0-30.0) L 04/15/21 17:20 Plasma/Serum Alcohol 0.02 % (0-0.07) 04/15/21 17:20 Microbiology: Microbiology 04/15/21 17:30 Peripheral/Venous Blood Culture - Preliminary Culture in Progress 04/15/21 17:20 Peripheral/Venous Blood Culture - Preliminary Culture in Progress Kerr/IV: Voiding Method Indwelling Catheter Active Medications - Current Medications Current Medications: Generic Name Dose Route Start Last Admin Trade Name Freq PRN Reason Stop Dose Admin Acetaminophen 650 mg 04/15/21 19:11 Acetaminophen 325 Mg Tab PO Q6H PRN Pain MILD(1-3)/Fever >100.5/SEXTON Heparin Sodium (Porcine) 5,000 unit 04/15/21 22:00 04/15/21 23:59 Heparin 5,000 Unit/1 Ml Vial SUB-Q Not Given Q12HR WOLFGANG Hydrophilic Ointment 1 applic 04/15/21 17:24 Lip Therapy Vaseline TP Q2HR PRN Dry Lips Propofol 1,000 mg in 100 mls @ 2.91 mls/hr 04/15/21 18:00 04/15/21 19:11 Diprivan 10 Mg/Ml IV 0 mcg/kg/min TITR WOLFGANG 0 mls/hr Titration Protocol 5 MCG/KG/MIN Dextrose 1,000 mls @ 75 mls/hr 04/15/21 20:00 04/16/21 02:38 D10w IV 150 mls/hr DIRECT WOLFGANG Administration Midazolam HCl 5 mg 04/15/21 18:00 04/15/21 17:30 Midazolam 5 Mg/5 Ml Inj Mdv IV 04/16/21 17:59 5 mg ONCE NR Administration Midazolam HCl 5 mg 04/15/21 18:00 Midazolam 5 Mg/5 Ml Inj Mdv IV 04/16/21 17:59 ONCE NR Multi-Ingred Cream/Lotion/Oil/Oint 1 applic 04/15/21 17:24 Mineral Oil/Petrolatum, White Ophth Oint 3.5 Gm OU Q4HR PRN Dry Eye(s) Sodium Chloride 10 ml 04/15/21 22:00 04/15/21 23:59 Sodium Chloride 0.9% 10 Ml Flush Syringe IV 10 ml BID WOLFGANG Administration Sodium Chloride 10 ml 04/15/21 19:11 Sodium Chloride 0.9% 10 Ml Flush Syringe IV PRN PRN LINE FLUSH Sodium Polystyrene Sulfonate 30 gm 04/16/21 08:54 Sodium Polystyrene 15 Gm/60 Ml Oral Liqd PO 04/16/21 08:55 ONCE ONE <RUDOLPH MARIE - Last Filed: 04/20/21 10:52> Assessment and Plan Assessment and plan: I saw and evaluated the patient. I agree with the findings and the plan of care as documented in the Nurse Practitioner's~note, with the following corrections and additions. Hospitalist Physical - Constitutional Vitals: Temp Pulse Resp BP Pulse Ox 99.4 F 79 22 154/74 100 04/20/21 07:27 04/20/21 10:00 04/20/21 10:00 04/20/21 10:00 04/20/21 10:00 HEART Score - HEART Score Troponin: Troponin T 0.065 ng/mL (0.00-0.029) H 04/20/21 03:32 Results - Labs CBC & Chem 7: 04/20/21 03:32 04/20/21 03:32 Labs: Laboratory Last Values WBC 13.2 K/mm3 (4.5-11.0) H 04/20/21 03:32 RBC 3.18 M/mm3 (3.65-5.03) L 04/20/21 03:32 Hgb 10.3 gm/dl (10.1-14.3) 04/20/21 03:32 Hct 30.8 % (30.3-42.9) 04/20/21 03:32 MCV 97 fl (79-97) 04/20/21 03:32 MCH 32 pg (28-32) 04/20/21 03:32 MCHC 34 % (30-34) 04/20/21 03:32 RDW 14.9 % (13.2-15.2) 04/20/21 03:32 Plt Count 164 K/mm3 (140-440) 04/20/21 03:32 Lymph % (Auto) 12.8 % (13.4-35.0) L 04/15/21 17:20 [place] % (Auto) 4.1 % (0.0-7.3) 04/15/21 17:20 Eos % (Auto) 0.3 % (0.0-4.3) 04/15/21 17:20 Baso % (Auto) 0.4 % (0.0-1.8) 04/15/21 17:20 Lymph # (Auto) 1.4 K/mm3 (1.2-5.4) 04/15/21 17:20 [place] # (Auto) 0.5 K/mm3 (0.0-0.8) 04/15/21 17:20 Eos # (Auto) 0.0 K/mm3 (0.0-0.4) 04/15/21 17:20 Baso # (Auto) 0.0 K/mm3 (0.0-0.1) 04/15/21 17:20 Add Manual Diff Complete 04/16/21 05:02 Total Counted 100 04/16/21 05:02 Seg Neutrophils % 82.4 % (40.0-70.0) H 04/15/21 17:20 Seg Neuts % (Manual) 84.0 % (40.0-70.0) H 04/16/21 05:02 Band Neutrophils % 3.0 % 04/16/21 05:02 Lymphocytes % (Manual) 2.0 % (13.4-35.0) L 04/16/21 05:02 Monocytes % (Manual) 10.0 % (0.0-7.3) H 04/16/21 05:02 Metamyelocytes % 1.0 % 04/16/21 05:02 Nucleated RBC % Not Reportable 04/16/21 05:02 Seg Neutrophils # 9.3 K/mm3 (1.8-7.7) H 04/15/21 17:20 Seg Neutrophils # Man 17.8 K/mm3 (1.8-7.7) H 04/16/21 05:02 Band Neutrophils # 0.6 K/mm3 04/16/21 05:02 Lymphocytes # (Manual) 0.4 K/mm3 (1.2-5.4) L 04/16/21 05:02 Abs React Lymphs (Man) 0.0 K/mm3 04/16/21 05:02 Monocytes # (Manual) 2.1 K/mm3 (0.0-0.8) H 04/16/21 05:02 Eosinophils # (Manual) 0.0 K/mm3 (0.0-0.4) 04/16/21 05:02 Basophils # (Manual) 0.0 K/mm3 (0.0-0.1) 04/16/21 05:02 Metamyelocytes # 0.2 K/mm3 04/16/21 05:02 Myelocytes # 0.0 K/mm3 04/16/21 05:02 Promyelocytes # 0.0 K/mm3 04/16/21 05:02 Blast Cells # 0.0 K/mm3 04/16/21 05:02 WBC Morphology Not Reportable 04/16/21 05:02 Hypersegmented Neuts Not Reportable 04/16/21 05:02 Hyposegmented Neuts Not Reportable 04/16/21 05:02 Hypogranular Neuts Not Reportable 04/16/21 05:02 Smudge Cells Not Reportable 04/16/21 05:02 Toxic Granulation Not Reportable 04/16/21 05:02 Toxic Vacuolation Not Reportable 04/16/21 05:02 Dohle Bodies Not Reportable 04/16/21 05:02 Pelger-Huet Anomaly Not Reportable 04/16/21 05:02 [place] Rods Not Reportable 04/16/21 05:02 Platelet Estimate Consistent w auto 04/16/21 05:02 Clumped Platelets Not Reportable 04/16/21 05:02 Plt Clumps, EDTA Not Reportable 04/16/21 05:02 Large Platelets Not Reportable 04/16/21 05:02 Giant Platelets Not Reportable 04/16/21 05:02 Platelet Satelliting Not Reportable 04/16/21 05:02 Plt Morphology Comment Not Reportable 04/16/21 05:02 RBC Morphology Not Reportable 04/16/21 05:02 Dimorphic RBCs Not Reportable 04/16/21 05:02 Polychromasia Not Reportable 04/16/21 05:02 Hypochromasia Not Reportable 04/16/21 05:02 Poikilocytosis Not Reportable 04/16/21 05:02 Anisocytosis Few 04/16/21 05:02 Microcytosis Not Reportable 04/16/21 05:02 Macrocytosis Not Reportable 04/16/21 05:02 Spherocytes Not Reportable 04/16/21 05:02 Pappenheimer Bodies Not Reportable 04/16/21 05:02 Sickle Cells Not Reportable 04/16/21 05:02 Target Cells Not Reportable 04/16/21 05:02 Tear Drop Cells Not Reportable 04/16/21 05:02 Ovalocytes Not Reportable 04/16/21 05:02 Helmet Cells Not Reportable 04/16/21 05:02 [place] Bodies Not Reportable 04/16/21 05:02 [place] Rings Not Reportable 04/16/21 05:02 [place] Cells Not Reportable 04/16/21 05:02 Bite Cells Not Reportable 04/16/21 05:02 Crenated Cell Not Reportable 04/16/21 05:02 Elliptocytes Not Reportable 04/16/21 05:02 Acanthocytes (Spur) Not Reportable 04/16/21 05:02 Rouleaux Not Reportable 04/16/21 05:02 Hemoglobin C Crystals Not Reportable 04/16/21 05:02 Schistocytes Not Reportable 04/16/21 05:02 Malaria parasites Not Reportable 04/16/21 05:02 James Bodies Not Reportable 04/16/21 05:02 Hem Pathologist Commnt No 04/16/21 05:02 PT 12.2 Sec. (12.2-14.9) 04/15/21 17:20 INR 0.91 (0.87-1.13) 04/15/21 17:20 APTT 31.8 Sec. (24.2-36.6) 04/15/21 17:20 ABG pH 7.526 (7.320-7.450) H 04/20/21 02:56 POC ABG pCO2 35.7 mmHg (32.0-48.0) 04/20/21 02:56 POC ABG pO2 105.1 mmHg (83-108) 04/20/21 02:56 POC ABG HCO3 28.9 04/20/21 02:56 ABG O2 Saturation 98.2 (0-100) 04/20/21 02:56 POC ABG Base Excess 5.9 04/20/21 02:56 ABG Hemoglobin 10.5 (12.0-17.5) L 04/20/21 02:56 ABG Oxyhemoglobin 97.6 (94-98) 04/20/21 02:56 ABG Methemoglobin 0.3 (0.0-1.5) 04/20/21 02:56 ABG Sodium 133.5 mmol/L (136.0-145.0) L 04/20/21 02:56 ABG Potassium 3.7 mmol/L (3.40-4.50) 04/20/21 02:56 ABG Chloride 99.0 mmol/L (98-107) 04/20/21 02:56 ABG Glucose 157 mg/dL (65-95) H 04/20/21 02:56 Carboxyhemoglobin 0.3 (0.5-1.5) L 04/20/21 02:56 FiO2 % 25.0 04/20/21 02:56 Sodium 135 mmol/L (137-145) L 04/20/21 03:32 Potassium 4.1 mmol/L (3.6-5.0) D 04/20/21 03:32 Chloride 96.7 mmol/L (98-107) L 04/20/21 03:32 Carbon Dioxide 28 mmol/L (22-30) 04/20/21 03:32 Anion Gap 14 mmol/L 04/20/21 03:32 BUN 40 mg/dL (7-17) H 04/20/21 03:32 Creatinine 2.3 mg/dL (0.6-1.2) H 04/20/21 03:32 Estimated GFR 25 ml/min 04/20/21 03:32 BUN/Creatinine Ratio 17 % 04/20/21 03:32 Glucose 142 mg/dL (65-100) H 04/20/21 03:32 POC Glucose 160 mg/dL (70-105) H 04/20/21 05:42 Lactic Acid 1.50 mmol/L (0.7-2.0) 04/15/21 17:20 Calcium 9.1 mg/dL (8.4-10.2) 04/20/21 03:32 Magnesium 1.70 mg/dL (1.7-2.3) 04/19/21 16:05 Total Bilirubin 0.70 mg/dL (0.1-1.2) 04/16/21 05:02 AST 65 units/L (5-40) H 04/16/21 05:02 ALT 31 units/L (7-56) 04/16/21 05:02 Alkaline Phosphatase 79 units/L (35-129) 04/16/21 05:02 Ammonia 46.0 umol/L (25-60) 04/15/21 17:20 Total Creatine Kinase 427 units/L (30-135) H 04/18/21 05:34 CK-MB (CK-2) 9.1 ng/mL (0.0-4.0) H 04/17/21 15:35 CK-MB (CK-2) Rel Index 1.4 (0-4) 04/17/21 15:35 Troponin T 0.065 ng/mL (0.00-0.029) H 04/20/21 03:32 NT-Pro-B Natriuret Pep 697.9 pg/mL (0-900) 04/15/21 17:20 Total Protein 6.3 g/dL (6.3-8.2) D 04/16/21 05:02 Albumin 3.8 g/dL (3.9-5) L 04/16/21 05:02 Albumin/Globulin Ratio 1.5 % 04/16/21 05:02 Triglycerides 103 mg/dL (2-149) 04/17/21 05:04 Cholesterol 122 mg/dL (50-199) 04/17/21 05:04 LDL Cholesterol Direct 55 mg/dL (50-130) 04/17/21 05:04 HDL Cholesterol 61 mg/dL (40-59) H 04/17/21 05:04 Cholesterol/HDL Ratio 2.00 % 04/17/21 05:04 Procalcitonin 0.20 ng/mL (<0.15) 04/16/21 19:01 TSH 14.190 mlU/mL (0.270-4.200) H 04/15/21 17:20 Thyroxine (T4) 4.1 ug/dL (4.0-12.0) 04/16/21 19:01 Free T3 Index 1.1 pg/mL (2.3-4.2) L 04/16/21 19:01 Arterial Blood Glucose 157 mg/dL (65-95) H 04/20/21 02:56 Arterial Blood Ionized Calcium 4.8 mg/dL (4.6-5.3) 04/20/21 02:56 Urine Color Yellow (Yellow) 04/18/21 09:11 Urine Turbidity Clear (Clear) 04/18/21 09:11 Urine pH 6.0 (5.0-7.0) 04/18/21 09:11 Ur Specific Crane 1.014 (1.003-1.030) 04/18/21 09:11 Urine Protein >500 mg/dL (Negative) 04/18/21 09:11 Urine Glucose (UA) Neg mg/dL (Negative) 04/18/21 09:11 Urine Ketones Neg mg/dL (Negative) 04/18/21 09:11 Urine Blood Sm (Negative) 04/18/21 09:11 Urine Nitrite Neg (Negative) 04/18/21 09:11 Urine Bilirubin Neg (Negative) 04/18/21 09:11 Urine Urobilinogen 2.0 mg/dL (<2.0) 04/18/21 09:11 Ur Leukocyte Esterase Lg (Negative) 04/18/21 09:11 Urine WBC (Auto) 34.0 /HPF (0.0-6.0) H 04/18/21 09:11 Urine RBC (Auto) 18.0 /HPF (0.0-6.0) 04/18/21 09:11 U Epithel Cells (Auto) < 1.0 /HPF (0-13.0) 04/16/21 00:09 Urine Bacteria (Auto) 1+ /HPF (Negative) 04/16/21 00:09 Urine Creatinine 24.4 mg/dL (0.1-20.0) H 04/16/21 00:12 Urine Sodium 97 mmol/L 04/16/21 00:12 Salicylates 4.1 mg/dL (2.8-20.0) 04/15/21 17:20 Acetaminophen 5.0 ug/mL (10.0-30.0) L 04/15/21 17:20 Plasma/Serum Alcohol 0.02 % (0-0.07) 04/15/21 17:20 Coronavirus (PCR) Negative (Negative) 04/16/21 Unknown Microbiology: Microbiology 04/18/21 09:11 Urine,Clean Catch Urine Culture - Preliminary Gram Negative Zeb 04/15/21 17:30 Peripheral/Venous Blood Culture - Preliminary NO GROWTH AFTER 4 DAYS 04/15/21 17:20 Peripheral/Venous Blood Culture - Preliminary NO GROWTH AFTER 4 DAYS 04/18/21 15:27 Peripheral/Venous Blood Culture - Preliminary NO GROWTH AFTER 24 HOURS 04/18/21 15:27 Peripheral/Venous Blood Culture - Preliminary NO GROWTH AFTER 24 HOURS 04/16/21 15:38 Tracheal Aspirate Sputum Culture - Final Kerr/IV: Voiding Method Indwelling Catheter Active Medications - Current Medications Current Medications: Generic Name Dose Route Start Last Admin Trade Name Freq PRN Reason Stop Dose Admin Acetaminophen 650 mg 04/15/21 19:11 04/19/21 23:33 Acetaminophen 325 Mg Tab PO 650 mg Q6H PRN Administration Pain MILD(1-3)/Fever >100.5/SEXTON Lipase/Protease/Amylase 1 each 04/16/21 12:52 Lipase 10,500/Protease 25,000/Amylase 43,750 (Units) Dr Simpson FEEDTUBE PRN PRN For Clogged Feeding Tube Bisacodyl 10 mg 04/17/21 11:01 04/17/21 13:46 Bisacodyl 10 Mg Rect Supp [place] 10 mg QDAY PRN Administration Constipation Brimonidine Tartrate 1 drops 04/17/21 22:00 04/20/21 09:19 Brimonidine 0.15% Ophth Soln OU 1 drops BID WOLFGANG Administration Famotidine 20 mg 04/17/21 10:00 04/20/21 09:07 Famotidine 20 Mg Tab PO 20 mg DAILY WOLFGANG Administration Heparin Sodium (Porcine) 5,000 unit 04/15/21 22:00 04/20/21 09:08 Heparin 5,000 Unit/1 Ml Vial SUB-Q 5,000 unit Q12HR WOLFGANG Administration Hydralazine HCl 10 mg 04/16/21 18:00 04/20/21 04:36 Hydralazine 20 Mg/1 Ml Inj IV 10 mg Q4HR PRN Administration Hypertension Hydrophilic Ointment 1 applic 04/15/21 17:24 Lip Therapy Vaseline TP Q2HR PRN Dry Lips Propofol 1,000 mg in 100 mls @ 2.91 mls/hr 04/15/21 18:00 04/20/21 07:28 Diprivan 10 Mg/Ml IV 0 mcg/kg/min TITR WOLFGANG 0 mls/hr Titration Protocol 5 MCG/KG/MIN Ceftriaxone Sodium 1 gm in 50 mls @ 100 mls/hr 04/18/21 15:00 04/19/21 15:21 Rocephin/Ns 1 Gm/50 Ml IV 100 mls/hr Q24H WOLFGANG Administration Protocol Insulin Glargine 5 units 04/19/21 09:00 04/20/21 09:08 Insulin Glargine 100 Units/Ml SUB-Q 5 units QAMDIAB WOLFGANG Administration Insulin Human Lispro 0 unit 04/16/21 15:00 04/20/21 06:33 Insulin Lispro 100 Unit/Ml SUB-Q 2 unit Q6HR WOLFGANG Administration Protocol Latanoprost 1 drops 04/17/21 18:00 04/19/21 18:08 Latanoprost 0.005% Ophth Soln 2.5 Ml OU 1 drops QPM WOLFGANG Administration Levothyroxine Sodium 25 mcg 04/19/21 06:00 04/20/21 06:33 Levothyroxine 25 Mcg Tab PO 25 mcg DAILY@0600 WOLFGANG Administration Metoprolol Tartrate 25 mg 04/19/21 10:00 04/20/21 09:07 Metoprolol Tartrate 25 Mg Tab PO 25 mg BID WOLFGANG Administration Modafinil 100 mg 04/19/21 10:00 04/20/21 09:07 Modafinil 100 Mg Tab PO 100 mg QAM WOLFGANG Administration Multi-Ingred Cream/Lotion/Oil/Oint 1 applic 04/15/21 17:24 04/16/21 11:19 Mineral Oil/Petrolatum, White Ophth Oint 3.5 Gm OU 1 applic Q4HR PRN Administration Dry Eye(s) Pravastatin Sodium 20 mg 04/19/21 22:00 04/19/21 21:48 Pravastatin 20 Mg Tab PO 20 mg QHS WOLFGANG Administration Simple Syrup 15 ml 04/16/21 12:52 Simple Syrup 15 Ml FEEDTUBE PRN PRN Hypoglycemia Simple Syrup 30 ml 04/16/21 12:52 Simple Syrup 15 Ml FEEDTUBE PRN PRN Hypoglycemia Sodium Bicarbonate 325 mg 04/16/21 12:52 Sodium Bicarbonate 325 Mg Tab FEEDTUBE PRN PRN For Clogged Feeding Tube Sodium Chloride 10 ml 04/15/21 22:00 04/20/21 09:09 Sodium Chloride 0.9% 10 Ml Flush Syringe IV 10 ml BID WOLFGANG Administration Sodium Chloride 10 ml 04/15/21 19:11 Sodium Chloride 0.9% 10 Ml Flush Syringe IV PRN PRN LINE FLUSH Timolol Maleate 1 drops 04/19/21 10:00 04/20/21 09:19 Timolol 0.5% Ophth Soln 5 Ml OU 1 drops QDAY WOLFGANG Administration Nutrition/Malnutrition Assess - Dietary Evaluation Nutrition/Malnutrition Findings: Nutrition Notes Start: 04/16/21 12:31 Freq: Status: Active Protocol: Document 04/19/21 10:52 EDWARD (Rec: 04/19/21 10:57 EDWARD [id number]) Co-Sign 04/19/21 10:52 MK Nutrition Notes Need for Assessment generated from: MD Order Initial or Follow up Reassessment Current Diagnosis Acute Kidney Injury,Diabetes, Hypertension,Respiratory Failure Other Pertinent Diagnosis Dementia, AMS, hx BrCA, [place] Current Diet Nepro at 35ml/hr Labs/Tests Na 133 K 2.8 BUN 43 Cr 2.7 BG 255 Ca 8.0 Pertinent Medications Kcl 40 meq Insulin Height 5 ft 6 in Weight 97 kg [place] Body Weight (kg) 59.09 BMI 34.4 Weight Status Obese Subjective/Other Information MD order for write/manage TF. Per chart, pt has dilated small bowel loops, but able to resume TF. TF running at goal at time of visit. RN notified about formula change. Percent of energy/protein needs met: 100%/58% Burn Absent Trauma Absent Difficulty In Swallowing Current % PO Negligible Minimum of two criteria No physical signs of malnutrition #1 Nutrition Diagnosis Inadequate oral intake Diagnosis Progress(for reassessment Continues documentation) Is patient on ventilator? Yes Is Patient Ambulatory and/or Out of Bed No REE-([place]-[facility] Jeor-confined to bed) 1748.712 Kcal/Kg value to use for calculation 15 Approximate Energy Requirements Using 1455 kcal/Kg Calculation Used for Recommendations Kcal/kg Additional Notes protien needs: >118g (>2 g/ kgIBW) Fluid needs: 1 ml/kcal Nutrition Intervention Change Diet Order: Continue TF Nutrition Support: Initiate Glucerna 1.2 at 20ml/ hr and increase by 15ml q8h until goal rate of 50ml/hr. Flush 50ml q4h for hyponatremia. Flush 80 ml q4h once hyponatremia resolves. Kcal 1,440 Protein (gm) 72 Fluid (mL) 966 Goal #1 Meet 75% energy and protein needs as best as possible via TF Anticipated Discharge Needs: unable to determine at this time Follow-Up By: 04/23/21 Additional Comments F/U for TF formula change and tolerance
[2021-04-16] MEDS ORDERED: SODIUM POLYSTYRENE 15 GM/60 ML ORAL LIQD PO ONE ×2 (09:00→21:27)
[2021-04-16] MEDS: HEPARIN 5,000 UNIT/1 ML VIAL SUB-Q SCH ×2 (09:27→21:07)
--- NOTE | 2021-04-16 09:59 | Consultation ---
History of Present Illness - Reason for Consult Consult date: 04/16/21 acute renal failure, hyperkalemia - History of Present Illness The patient is an 80 YO female with history of Hypertension, Diabetes mellitus, IA, breast CA in remission and TIA who presented to [facility] ED 04/15 with hypoglycemia and altered mental status. Patient is currently intubated and there was no family member at the bedside. Patient felt her sugar was low at home. She informed her nephew that she was can get something to eat. Nephew did not hear from patient throughout the day. He has neighbor to check on her. Patient was altered. EMS found patient flat on her back in bed and unresponsive. Blood sugar was 38 per EMS. Patient received 1 ampoule of dextrose. She continued to be unresponsive. Patient was intubated in the ED. Labs was significant for Creat 2.8, BUN 35, Sodium 129 and K 7.1. Nephrology was consulted for further evaluation of ROJELIO and hyperkalemia. Medications and Allergies Allergies Allergy/AdvReac Type Severity Reaction Status Date / Time No Known Allergies Allergy Unverified 04/15/21 17:41 Active Meds: Active Medications Acetaminophen (Acetaminophen 325 Mg Tab) 650 mg PO Q6H PRN PRN Reason: Pain MILD(1-3)/Fever >100.5/[place] Famotidine (Famotidine 20 Mg/2 Ml Inj) 20 mg IV DAILY WOLFGANG Heparin Sodium (Porcine) (Heparin 5,000 Unit/1 Ml Vial) 5,000 unit SUB-Q Q12HR WOLFGANG Last Admin: 04/16/21 09:27 Dose: 5,000 unit Documented by: Hydrophilic Ointment (Lip Therapy Vaseline) 1 applic TP Q2HR PRN PRN Reason: Dry Lips Propofol (Diprivan 10 Mg/Ml) 1,000 mg in 100 mls @ 2.91 mls/hr IV TITR WOLFGANG; Protocol Last Titration: 04/15/21 19:11 Dose: 0 mcg/kg/min, 0 mls/hr Documented by: Dextrose (D10w) 1,000 mls @ 75 mls/hr IV DIRECT WOLFGANG Last Admin: 04/16/21 09:26 Dose: 75 mls/hr Documented by: Midazolam HCl (Midazolam 5 Mg/5 Ml Inj Mdv) 5 mg IV ONCE NR Stop: 04/16/21 17:59 Last Admin: 04/15/21 17:30 Dose: 5 mg Documented by: Midazolam HCl (Midazolam 5 Mg/5 Ml Inj Mdv) 5 mg IV ONCE NR Stop: 04/16/21 17:59 Multi-Ingred Cream/Lotion/Oil/Oint (Mineral Oil/Petrolatum, White Ophth Oint 3.5 Gm) 1 applic OU Q4HR PRN PRN Reason: Dry Eye(s) Sodium Chloride (Sodium Chloride 0.9% 10 Ml Flush Syringe) 10 ml IV BID WOLFGANG Last Admin: 04/16/21 09:25 Dose: 10 ml Documented by: Sodium Chloride (Sodium Chloride 0.9% 10 Ml Flush Syringe) 10 ml IV PRN PRN PRN Reason: LINE FLUSH Exam - Vital Signs Vital signs: Vital Signs Pulse Resp Pulse Ox 58 L 21 95 04/15/21 17:06 04/15/21 17:06 04/15/21 17:06 Results - Lab Results 04/16/21 05:02 04/16/21 05:02 Most recent lab results ABG pH 7.461 (7.320-7.450) H 04/16/21 03:43 ABG O2 Saturation 97.5 (0-100) 04/16/21 03:43 Calcium 10.4 mg/dL (8.4-10.2) H 04/16/21 05:02 Urine Creatinine 24.4 mg/dL (0.1-20.0) H 04/16/21 00:12 Urine Sodium 97 mmol/L 04/16/21 00:12 Assessment and Plan 1. Acute kidney injury: Likely vasomotor ROJELIO. ATN likely. Renal US ordered. Baseline renal function is unknown. Monitor renal function. Non-oliguric. Creatinine level is about the same. Renal prognosis is guarded. Avoid nephrotoxic agents. Meds dosage based on GFR. 2. FEN: Hyperkalemia, Kayexalate & Insulin ordered, on IV D10, monitor. Hyponatremia, monitor. Monitor lytes and volume status. 3. Acute hypoxemic respiratory failure: Currently intubated, on vent. 4. Acute encephalopathy: Hypoglycemia. CT head negative. 5. Leukocytosis. 6. Hypertension. 7. DM type 2. 8. Mild rhabdomyolysis. Subjective: Patient was seen and examined at the bedside. Examination: General appearance: well-developed, appears stated age, no distress, obese, intubated, on vent, NG tube HEENT: BRUCE, atraumatic Neck: trachea midline Respiratory: Clear to Auscultation Heart: S1S2, regular, no murmur Abdomen: soft, obese, bowel sounds heard, NT Integumentary: no obvious rash Neurologic: not responding Ext: no edema noted : Kerr catheter
[2021-04-16] MEDS ORDERED: FAMOTIDINE 20 MG/2 ML INJ IV SCH (10:00)
[2021-04-16] MEDS ORDERED: INSULIN REGULAR, HUMAN 100 UNITS/1 ML IV ONE ×2 (11:00→21:27)
[2021-04-16] MEDS: MINERAL OIL/PETROLATUM, WHITE OPHTH OINT 3.5 GM OU PRN (11:19)
[2021-04-16] MEDS ORDERED: SODIUM BICARBONATE 325 MG TAB FEEDTUBE PRN (12:52)
[2021-04-16] MEDS ORDERED: LIPASE 10,500/PROTEASE 25,000/AMYLASE 43,750 (UNITS) DR CAP FEEDTUBE PRN (12:52)
[2021-04-16] MEDS ORDERED: SIMPLE SYRUP 15 ML FEEDTUBE PRN ×2 (12:52)
[2021-04-16] MEDS ORDERED: DEXTROSE 5% IN WATER 1,000 ML IV SCH (13:00)
--- NOTE | 2021-04-16 14:15 | Consultation ---
History of Present Illness Consult date: 04/16/21 Requesting physician: EDGARDO HOWARD Reason for consult: other (Acute Hypoxemic Respiratory Failure) History of present illness: PULMONARY/CCM CONSULT NOTE (Full dictation # [id number]) Please see dictated notes for full details Past History Past Medical History: other (See HPI) Medications and Allergies Allergies Allergy/AdvReac Type Severity Reaction Status Date / Time No Known Allergies Allergy Unverified 04/15/21 17:41 Active Meds: Active Medications Acetaminophen (Acetaminophen 325 Mg Tab) 650 mg PO Q6H PRN PRN Reason: Pain MILD(1-3)/Fever >100.5/[place] Famotidine (Famotidine 20 Mg/2 Ml Inj) 20 mg IV DAILY WOLFGANG Last Admin: 04/16/21 10:30 Dose: 20 mg Documented by: Heparin Sodium (Porcine) (Heparin 5,000 Unit/1 Ml Vial) 5,000 unit SUB-Q Q12HR WOLFGANG Last Admin: 04/16/21 09:27 Dose: 5,000 unit Documented by: Hydrophilic Ointment (Lip Therapy Vaseline) 1 applic TP Q2HR PRN PRN Reason: Dry Lips Propofol (Diprivan 10 Mg/Ml) 1,000 mg in 100 mls @ 2.91 mls/hr IV TITR WOLFGANG; Protocol Last Titration: 04/15/21 19:11 Dose: 0 mcg/kg/min, 0 mls/hr Documented by: Dextrose (D10w) 1,000 mls @ 75 mls/hr IV DIRECT WOLFGANG Last Admin: 04/16/21 09:26 Dose: 75 mls/hr Documented by: Midazolam HCl (Midazolam 5 Mg/5 Ml Inj Mdv) 5 mg IV ONCE NR Stop: 04/16/21 17:59 Last Admin: 04/15/21 17:30 Dose: 5 mg Documented by: Midazolam HCl (Midazolam 5 Mg/5 Ml Inj Mdv) 5 mg IV ONCE NR Stop: 04/16/21 17:59 Multi-Ingred Cream/Lotion/Oil/Oint (Mineral Oil/Petrolatum, White Ophth Oint 3.5 Gm) 1 applic OU Q4HR PRN PRN Reason: Dry Eye(s) Last Admin: 04/16/21 11:19 Dose: 1 applic Documented by: Sodium Chloride (Sodium Chloride 0.9% 10 Ml Flush Syringe) 10 ml IV BID WOLFGANG Last Admin: 04/16/21 09:25 Dose: 10 ml Documented by: Sodium Chloride (Sodium Chloride 0.9% 10 Ml Flush Syringe) 10 ml IV PRN PRN PRN Reason: LINE FLUSH Physical Examination Vital signs: Vital Signs Pulse Resp Pulse Ox 58 L 21 95 04/15/21 17:06 04/15/21 17:06 04/15/21 17:06 Results - Laboratory Findings CBC and BMP: 04/16/21 05:02 04/16/21 05:02 ABG ABG pH 7.461 (7.320-7.450) H 04/16/21 03:43 POC ABG pCO2 39.9 mmHg (32.0-48.0) 04/16/21 03:43 POC ABG pO2 90.8 mmHg (83-108) 04/16/21 03:43 POC ABG HCO3 27.8 04/16/21 03:43 ABG O2 Saturation 97.5 (0-100) 04/16/21 03:43 PT/INR, D-dimer PT 12.2 Sec. (12.2-14.9) 04/15/21 17:20 INR 0.91 (0.87-1.13) 04/15/21 17:20 Abnormal lab findings: Abnormal Labs 04/15/21 04/15/21 04/15/21 17:20 17:20 17:20 WBC 11.2 H Hct 43.0 H MCV RDW 15.3 H Lymph % (Auto) 12.8 L Seg Neutrophils % 82.4 H Seg Neuts % (Manual) Lymphocytes % (Manual) Monocytes % (Manual) Seg Neutrophils # 9.3 H Seg Neutrophils # Man Lymphocytes # (Manual) Monocytes # (Manual) ABG pH POC ABG pCO2 POC ABG pO2 ABG Oxyhemoglobin ABG Sodium ABG Potassium ABG Chloride ABG Glucose Sodium 129 L Potassium 7.1 H* Chloride 91.9 L BUN 35 H Creatinine 2.8 H Glucose POC Glucose Calcium AST 69 H Total Creatine Kinase 1000 H Albumin TSH Arterial Blood Glucose Arterial Blood Ionized Calcium Urine pH Urine Creatinine Acetaminophen 04/15/21 04/15/21 04/15/21 17:20 17:20 20:49 WBC Hct MCV RDW Lymph % (Auto) Seg Neutrophils % Seg Neuts % (Manual) Lymphocytes % (Manual) Monocytes % (Manual) Seg Neutrophils # Seg Neutrophils # Man Lymphocytes # (Manual) Monocytes # (Manual) ABG pH 7.557 H POC ABG pCO2 30.0 L POC ABG pO2 493.3 H ABG Oxyhemoglobin 99.0 H ABG Sodium 131.5 L ABG Potassium 4.7 H ABG Chloride 94.0 L ABG Glucose 218 H Sodium Potassium Chloride BUN Creatinine Glucose POC Glucose Calcium AST Total Creatine Kinase Albumin TSH 14.190 H Arterial Blood Glucose 218 H Arterial Blood Ionized Calcium 5.4 H Urine pH Urine Creatinine Acetaminophen 5.0 L 04/15/21 04/15/21 04/16/21 21:23 23:15 00:09 WBC Hct MCV RDW Lymph % (Auto) Seg Neutrophils % Seg Neuts % (Manual) Lymphocytes % (Manual) Monocytes % (Manual) Seg Neutrophils # Seg Neutrophils # Man Lymphocytes # (Manual) Monocytes # (Manual) ABG pH POC ABG pCO2 POC ABG pO2 ABG Oxyhemoglobin ABG Sodium ABG Potassium ABG Chloride ABG Glucose Sodium Potassium Chloride BUN Creatinine Glucose POC Glucose 173 H 207 H Calcium AST Total Creatine Kinase Albumin TSH Arterial Blood Glucose Arterial Blood Ionized Calcium Urine pH 9.0 H Urine Creatinine Acetaminophen 04/16/21 04/16/21 04/16/21 00:12 00:19 03:43 WBC Hct MCV RDW Lymph % (Auto) Seg Neutrophils % Seg Neuts % (Manual) Lymphocytes % (Manual) Monocytes % (Manual) Seg Neutrophils # Seg Neutrophils # Man Lymphocytes # (Manual) Monocytes # (Manual) ABG pH 7.461 H POC ABG pCO2 POC ABG pO2 ABG Oxyhemoglobin ABG Sodium 126.8 L ABG Potassium 5.4 H ABG Chloride 90.0 L ABG Glucose 325 H Sodium Potassium 6.7 H* Chloride BUN Creatinine Glucose POC Glucose Calcium AST Total Creatine Kinase Albumin TSH Arterial Blood Glucose 325 H Arterial Blood Ionized Calcium Urine pH Urine Creatinine 24.4 H Acetaminophen 04/16/21 04/16/21 04/16/21 03:55 05:02 05:02 WBC 21.2 H Hct 43.4 H MCV 98 H RDW Lymph % (Auto) Seg Neutrophils % Seg Neuts % (Manual) 84.0 H Lymphocytes % (Manual) 2.0 L Monocytes % (Manual) 10.0 H Seg Neutrophils # Seg Neutrophils # Man 17.8 H Lymphocytes # (Manual) 0.4 L Monocytes # (Manual) 2.1 H ABG pH POC ABG pCO2 POC ABG pO2 ABG Oxyhemoglobin ABG Sodium ABG Potassium ABG Chloride ABG Glucose Sodium 131 L Potassium 5.9 H Chloride 88.7 L BUN 34 H Creatinine 2.9 H Glucose 249 H POC Glucose 391 H Calcium 10.4 H AST 65 H Total Creatine Kinase Albumin 3.8 L TSH Arterial Blood Glucose Arterial Blood Ionized Calcium Urine pH Urine Creatinine Acetaminophen 04/16/21 11:34 WBC Hct MCV RDW Lymph % (Auto) Seg Neutrophils % Seg Neuts % (Manual) Lymphocytes % (Manual) Monocytes % (Manual) Seg Neutrophils # Seg Neutrophils # Man Lymphocytes # (Manual) Monocytes # (Manual) ABG pH POC ABG pCO2 POC ABG pO2 ABG Oxyhemoglobin ABG Sodium ABG Potassium ABG Chloride ABG Glucose Sodium Potassium Chloride BUN Creatinine Glucose POC Glucose 382 H Calcium AST Total Creatine Kinase Albumin TSH Arterial Blood Glucose Arterial Blood Ionized Calcium Urine pH Urine Creatinine Acetaminophen
--- NOTE | 2021-04-16 16:27 | Consultation ---
History of Present Illness Consult date: 04/16/21 Requesting physician: PEDRO MARIO Consult reason: bradycardia History of present illness: This patient is a 80-year-old female with a significant history of hypertension, diabetes mellitus, AMI, BRCA in remission, TIA. She is previously unknown to our practice. Patient presented to [facility] ER via EMS found unresponsive and hypoglycemic 34. Patient was subsequently intubated as she was unable to protect her airway. Cardiology was consulted for apparent sinus bradycardia noted prehospital. Review of telemetry reveals no episodes of bradycardia while in CCU. Patient remains intubated, not sedated and unresponsive, thus history is obtained from the chart. Acute CVA/subclinical seizures are suspected and neuro is consulted. Telemetry is reviewed: Sinus rhythm 88 with first-degree block. Intermittent demand pacer is noted. Past History Past Medical History: other (See HPI) Medications and Allergies Allergies Allergy/AdvReac Type Severity Reaction Status Date / Time No Known Allergies Allergy Unverified 04/15/21 17:41 Active Meds: Active Medications Acetaminophen (Acetaminophen 325 Mg Tab) 650 mg PO Q6H PRN PRN Reason: Pain MILD(1-3)/Fever >100.5/[place] Famotidine (Famotidine 20 Mg/2 Ml Inj) 20 mg IV DAILY WOLFGANG Heparin Sodium (Porcine) (Heparin 5,000 Unit/1 Ml Vial) 5,000 unit SUB-Q Q12HR WOLFGANG Last Admin: 04/16/21 09:27 Dose: 5,000 unit Documented by: Hydrophilic Ointment (Lip Therapy Vaseline) 1 applic TP Q2HR PRN PRN Reason: Dry Lips Propofol (Diprivan 10 Mg/Ml) 1,000 mg in 100 mls @ 2.91 mls/hr IV TITR WOLFGANG; Protocol Last Titration: 04/15/21 19:11 Dose: 0 mcg/kg/min, 0 mls/hr Documented by: Dextrose (D10w) 1,000 mls @ 75 mls/hr IV DIRECT WOLFGANG Last Admin: 04/16/21 09:26 Dose: 75 mls/hr Documented by: Midazolam HCl (Midazolam 5 Mg/5 Ml Inj Mdv) 5 mg IV ONCE NR Stop: 04/16/21 17:59 Last Admin: 04/15/21 17:30 Dose: 5 mg Documented by: Midazolam HCl (Midazolam 5 Mg/5 Ml Inj Mdv) 5 mg IV ONCE NR Stop: 04/16/21 17:59 Multi-Ingred Cream/Lotion/Oil/Oint (Mineral Oil/Petrolatum, White Ophth Oint 3.5 Gm) 1 applic OU Q4HR PRN PRN Reason: Dry Eye(s) Sodium Chloride (Sodium Chloride 0.9% 10 Ml Flush Syringe) 10 ml IV BID WOLFGANG Last Admin: 04/16/21 09:25 Dose: 10 ml Documented by: Sodium Chloride (Sodium Chloride 0.9% 10 Ml Flush Syringe) 10 ml IV PRN PRN PRN Reason: LINE FLUSH Review of Systems ROS unobtainable: due to endotracheal tube, due to mental status Physical Examination Last Vital Signs Temp 99.7 F H 04/16/21 08:00 Pulse 88 04/16/21 09:30 Resp 15 04/16/21 09:30 BP 152/70 04/16/21 09:30 Pulse Ox 98 04/16/21 09:30 General appearance: other (Unresponsive) HEENT: Positive: Other (Unresponsive) Neck: Positive: neck supple, trachea midline Cardiac: Positive: Reg Rate and Rhythm, S1/S2 Lungs: Positive: Ventilated Respirations Neuro: Positive: Other (Unresponsive) Abdomen: Positive: Unremarkable Skin: Negative: Rash, Wound Musculoskeletal: other Extremities: Present: upper extr. pulses, lower extr. pulses. Absent: edema Results 04/16/21 05:02 04/16/21 05:02 Cardiac Enzymes 04/15/21 04/16/21 Range/Units 17:20 05:02 AST 69 H 65 H (5-40) units/L Coagulation 04/15/21 Range/Units 17:20 PT 12.2 (12.2-14.9) Sec. INR 0.91 (0.87-1.13) APTT 31.8 (24.2-36.6) Sec. CBC 04/15/21 04/16/21 Range/Units 17:20 05:02 WBC 11.2 H 21.2 H (4.5-11.0) K/mm3 RBC 4.45 4.43 (3.65-5.03) M/mm3 Hgb 13.9 14.0 (10.1-14.3) gm/dl Hct 43.0 H 43.4 H (30.3-42.9) % Plt Count 214 200 (140-440) K/mm3 Lymph # (Auto) 1.4 (1.2-5.4) K/mm3 [place] # (Auto) 0.5 (0.0-0.8) K/mm3 Eos # (Auto) 0.0 (0.0-0.4) K/mm3 Baso # (Auto) 0.0 (0.0-0.1) K/mm3 Comprehensive Metabolic Panel 04/15/21 04/16/21 04/16/21 Range/Units 17:20 00:19 05:02 Sodium 129 L 131 L (137-145) mmol/L Potassium 7.1 H* 6.7 H* 5.9 H (3.6-5.0) mmol/L Chloride 91.9 L 88.7 L (98-107) mmol/L Carbon Dioxide 27 27 (22-30) mmol/L BUN 35 H 34 H (7-17) mg/dL Creatinine 2.8 H 2.9 H (0.6-1.2) mg/dL Glucose 92 249 H (65-100) mg/dL Calcium 10.2 10.4 H (8.4-10.2) mg/dL AST 69 H 65 H (5-40) units/L ALT 36 31 (7-56) units/L Alkaline Phosphatase 84 79 (35-129) units/L Total Protein 7.9 6.3 D (6.3-8.2) g/dL Albumin 4.5 3.8 L (3.9-5) g/dL - Imaging and Cardiology Echo: pending EKG: pending EKG interpretations - Telemetry EKG Rhythm: 1st Degree HB Assessment and Plan #Symptomatic bradycardia * Telemetry reviewed: Sinus rhythm 88 with first-degree heart block. Intermittent demand pacer noted. No episodes of bradycardia recorded while in CCU. * Twelve-lead ECG was negative for ischemic changes. Troponin is negative x1. Continue to trend CE's. * Echocardiogram is pending * Avoid AV arron blocking agents #Hypertension * Patient is mildly hypertensive. Recommend conservative management pending neurology recommendations in setting of encephalopathy/possible CVA. #Acute on chronic renal disease in setting of chronic diabetes * No ACEI/ARB and acute kidney injury. Avoid nephrotoxic agents. Nephrology is following. #DVT prophylaxis * Heparin subQ We will follow This patient was seen in conjunction with Dr Tejeda who agrees with this assessment and plan of care - Patient Problems (1) Acute metabolic encephalopathy due to hypoglycemia Current Visit: Yes Status: Acute (2) Acute hypoxemic respiratory failure Current Visit: Yes Status: Acute (3) Symptomatic bradycardia Current Visit: Yes Status: Acute (4) Acute kidney injury Current Visit: Yes Status: Acute (5) DVT prophylaxis Current Visit: Yes Status: Acute (6) Diabetes mellitus Current Visit: Yes Status: Chronic
[2021-04-16] MEDS: INSULIN LISPRO 100 UNIT/ML SUB-Q SCH ×2 (17:00→19:33)
[2021-04-16] MEDS: hydrALAZINE 20 MG/1 ML INJ IV PRN (17:05)
[2021-04-16 20:03] LABS: Calcium 9.6 mg/dL (8.4-10.2)
[2021-04-16] MEDS: D5W/0.9% NACL 1,000 ML IV SCH (20:59)
[2021-04-16] MEDS ORDERED: METOPROLOL TARTRATE 25 MG TAB PO SCH (22:00)
[2021-04-17] MEDS: INSULIN LISPRO 100 UNIT/ML SUB-Q SCH ×4 (00:27→17:14)
--- NOTE | 2021-04-17 03:30 | Consultation ---
DATE OF CONSULTATION: 04/16/2021 PULMONARY CRITICAL CARE CONSULTATION NOTE CONSULTING PHYSICIAN: Dr. Diaz Jimenez. REASON FOR CONSULTATION: 1. Acute hypoxemic respiratory failure. 2. Acute encephalopathy. CHIEF COMPLAINT AND HISTORY OF PRESENT ILLNESS: The patient is an 80-year-old obese female with past medical history significant amongst other things for a diagnosis of coronary artery disease, but also breast cancer, in remission, and a prior transient ischemic attack, who presented with essentially hypoglycemia and altered mental status. According to the records, she had spoken with her nephew by the phone. She felt her sugar was low. She told her she was going to get something to eat. She did not hear from her throughout the holiday and unable to check on her. EMS was called and they found her flat on her back in bed. She was unresponsive. Blood sugar was 38. She received an amp of dextrose without significant improvement and was then brought to the emergency room. In the emergency room, she developed profound hypotension and remained altered and there was a suspicion of seizure activity. She was intubated for airway protection and to ventilate her and post-procedure intensive care unit admission was requested. Of note, she was also found to have a presumed acute kidney injury as well as significant hyperkalemia of 7.1. We are asked to assist with management. When I stopped by to see her, she was resting in bed on the mechanical ventilator, not following commands, not responding appropriately, but without significant patient-ventilator dyssynchrony. With regards to the patient's tobacco use/abuse history, that history is unknown. The above is as much of the history of presentation as I have. PAST MEDICAL HISTORY: Hypertension, diabetes, coronary artery disease, breast cancer, and transient ischemic attack. She is obese. PAST SURGICAL HISTORY: She has had a cholecystectomy and double mastectomy. MEDICATIONS: Medications she was on at the time I stopped by to see were reviewed, pertinent medications include the following: Tylenol 650 mg p.o. q.6h. p.r.n. mild pain or fevers. All p.o. meds via the feeding tube. D10 drip had been going at 75 mL per hour, Pepcid 20 mg IV daily, heparin 5000 units subQ q.12. She received Versed 5 mg IV x1 in the emergency room. She had also been on a propofol drip earlier 5 mcg per kilogram per minute. ALLERGIES: No known drug allergies. DIET: Obese lady. Acute weight loss or gain history is unknown. FAMILY AND SOCIAL HISTORY: Apparently lived in the community. Alcohol, tobacco or illicit drug abuse history are unknown. REVIEW OF SYSTEMS: Unobtainable secondary to the patient's medical and mental condition. Since she has been here, no gross hematochezia or melena, no gross hematuria, no hematemesis, no bloody tracheal secretions. There was a suspected witnessed seizure in the emergency room. Review of systems otherwise unobtainable or as in the body of the history above. PHYSICAL EXAMINATION: VITAL SIGNS: At presentation, the first temperature that I see recorded was 98.6 degrees Fahrenheit. She has had a T-max of 99.7 degrees Fahrenheit during this admission. Her pulse at presentation 58, respiratory rate 21, blood pressure 168/106, O2 sats 100%, inspired oxygen concentration at that time was not recorded. When I stopped by to see her, O2 sats were 99%, that was on the assist control mode of ventilation, tidal volumes 450, rate of 16 and PEEP of 6 and 25% FiO2 at that time. GENERAL: She is elderly looking female. Normocephalic, atraumatic. On the mechanical ventilator without significant patient-ventilator dyssynchrony. HEENT: Anicteric, no conjunctival erythema. Oropharynx was moist. ET tube was taped at the lips around 23-24 cm. NECK: No gross jugular venous distention, no thyromegaly. Grossly, there were no palpable lymph nodes in the supraclavicular or submandibular lymph node chains. Auscultation of both lung nguyen unremarkable. LUNGS: Good bilateral air movement. No wheezing. HEART: Sounds 1 and 2 are heard at the time of my evaluation, regular rate and rhythm without overt rubs or murmurs. ABDOMEN: Soft, full, protuberant. Bowel sounds are positive, nontender, no palpable hepatosplenomegaly. EXTREMITIES: Without overt digital clubbing, no cyanosis, no pitting pedal edema. Pedal pulses are 2+ bilaterally. NEUROLOGIC: Pupils were equal, round, about 3 mm, reactive to light. Extraocular muscle movements could not be assessed. She had some spontaneous movements to all extremities. SKIN: Normal turgor in the areas examined without overt cellulitis or rash. Please see the wound care nurses' notes for full description of the skin. PSYCHIATRIC: Mood and affect could not be assessed. LABORATORY DATA: Per my review is as follows: Admission white cell count 11,200, hemoglobin 13.9, hematocrit 43.0, platelet count was 214, 30% band neutrophils. INR was 0.91. Arterial blood gas today 7.61 pH, pCO2 of 40, pO2 of 91 on 25% FiO2. Serum sodium at presentation 129, potassium 7.1, chloride 92, bicarbonate 27, BUN 35, creatinine 2.8, glucose was 92. Lactic acid level was within normal limits. AST 69. Otherwise, liver function test within normal limits. TSH was significantly elevated at 14.2. CPK was up at 1000. Urinalysis was negative for nitrites and leukocyte esterase, 1+ bacteria. Aspirin, Tylenol, alcohol levels were all undetectable essentially. Two sets of blood cultures are no growth to date. A chest x-ray was done. I have reviewed the chest x-ray, essentially also the radiologist's interpretation. ET tube tip is at the level of the aortic knob. Otherwise, really no acute process. A CT scan of the head was also done at presentation, it was read as no acute intracranial abnormality. 2D echocardiogram has been done, shows ejection fraction of 30-35% with severe hypokinesis in the septal, inferior and anterior combs. No pulmonary hypertension of significance. ASSESSMENT: 1. Acute respiratory failure, on mechanical ventilatory support. 2. Acute toxic metabolic encephalopathy, presumably due to hypoglycemia. 3. Hypoglycemia. 4. Possible seizure activity. 5. History of diabetes. 6. History of hypertension. 7. Coronary artery disease. 8. Obesity. 9. History of breast cancer, in remission. 10. History of transient ischemic attack. 11. Leukocytosis. 12. Severe hyperkalemia. 13. Acute kidney injury. 14. Rhabdomyolysis. 15. Elevated serum TSH, possible hypothyroidism. PLAN: I will keep her on mechanical ventilatory support while we work with her mental status. I have dropped the rate to 12. We will begin spontaneous breathing trials as soon as possible. Mental status will be a rate limiting factor to safe extubation if that does not improve. Neurology evaluation I believe has been placed and will be deferred to the attending physician. The initial CT scan is negative and I do think that the symptoms we are seeing are related to her neuroglycopenia. The serum potassium is down to 5.9. Nephrology is on the case. She is making urine. She has received some more medications and we will repeat that test down the line. In the meantime, ventilator-associated pneumonia bundle has been introduced. I do note the leukocytosis which is watched today at 21.2, I will get procalcitonin level and CRP level and if the procalcitonin is significantly elevated, I will begin empiric antibiotic therapy, probably community-acquired pneumonia therapy empirically. Oxygen will be weaned to keep sats greater than or equal to 92%. She is a person under investigation for COVID-19 infection. She will be kept in contact and airborne precautions. In the meantime, we have changed the D10 to D5W at 75 mL per hour as her sugars are now running high. Enteral nutrition is about to be started and we will soon stop the D5W drip. We will keep an eye on her serum sodium while we are doing this. She is appropriately on GI and DVT prophylaxis. Flu and pneumonia vaccination will be addressed per protocol. Other interventions will be at the behest of the attending physician. Cardiology evaluation is ongoing. Thank you very much for the consult Dr. Jimenez. We will follow along and make further recommendations as picture progresses/becomes clearer. She is critically ill on life-sustaining interventions including mechanical ventilatory support at high risk of from cardiopulmonary and neurologic system decompensation. At this time, I spent about 30-35 minutes of critical care time without overlap and excluding any procedural time that may be necessary. We are getting further tests to include a free T4 level, but in the meantime, I will start her on oral Levoxyl at 25 mcg per day. Again, 35-40 minutes of critical care time. TID: [id number] RECEIPT: [id number] LORENA/LALA ALANIZ
--- NOTE | 2021-04-17 04:05 | XRay Report ---
CHEST 1 VIEW 04/17/2021 2:48 AM INDICATION / CLINICAL INFORMATION: follow up respiratory failure. COMPARISON: One view of the chest from 04/15/2021. FINDINGS: SUPPORT DEVICES: Unchanged ET tube. An NG tube has been placed that terminates over the proximal stom ach. HEART / MEDIASTINUM: No significant abnormality. LUNGS / PLEURA: Lung volumes are reduced with probable hypoventilatory changes bilaterally and no oth er acute pulmonary abnormality. No significant pleural effusion. No pneumothorax. ADDITIONAL FINDINGS: No significant additional findings. IMPRESSION: 1. Low lung volumes with probable hypoventilatory changes. 2. Interval NG tube placement. Signer Name: Сергей Gonzalez MD Signed: 04/17/2021 4:00 AM Workstation Name: [id number]
[2021-04-17 06:21] LABS: Calcium 9.6 mg/dL (8.4-10.2)
--- NOTE | 2021-04-17 08:56 | Progress Note ---
Assessment and Plan 1. Acute kidney injury: Likely vasomotor ROJELIO. ATN likely. Renal US ordered. Baseline renal function is unknown. Monitor renal function. Non-oliguric. Creatinine level increased since yesterday AM. Renal prognosis is guarded. Avoid nephrotoxic agents. Meds dosage based on GFR. 2. FEN: Hyperkalemia, improved, monitor. Hyponatremia, monitor. Salt tablets. Monitor lytes and volume status. 3. Acute hypoxemic respiratory failure: Currently intubated, on vent. 4. Acute encephalopathy: Hypoglycemia. CT head negative. 5. Leukocytosis. 6. Hypertension. 7. DM type 2. 8. Mild rhabdomyolysis. Subjective: Patient was seen and examined at the bedside. Examination: General appearance: well-developed, appears stated age, no distress, obese, intubated, on vent, NG tube HEENT: BRUCE, atraumatic Neck: trachea midline Respiratory: Clear to Auscultation Heart: S1S2, regular, no murmur Abdomen: soft, obese, bowel sounds heard, NT Integumentary: no obvious rash Neurologic: not responding Ext: no edema noted : Kerr catheter Subjective Date of service: 04/17/21 Objective - Vital Signs Vital signs: Vital Signs - 12hr 04/16/21 04/16/21 04/16/21 21:00 21:10 21:20 Temperature Pulse Rate 112 H 106 H 99 H Pulse Rate [ From Monitor] Respiratory 9 L 18 15 Rate Blood Pressure 149/69 149/69 133/53 O2 Sat by Pulse 99 99 100 Oximetry 04/16/21 04/16/21 04/16/21 21:30 21:40 21:50 Temperature Pulse Rate 105 H 100 H 103 H Pulse Rate [ From Monitor] Respiratory 11 L 23 12 Rate Blood Pressure 116/62 116/62 130/64 O2 Sat by Pulse 100 100 99 Oximetry 04/16/21 04/16/21 04/16/21 22:00 22:10 22:20 Temperature Pulse Rate 101 H 101 H 101 H Pulse Rate [ From Monitor] Respiratory 13 14 20 Rate Blood Pressure 128/86 128/86 119/61 O2 Sat by Pulse 99 99 99 Oximetry 04/16/21 04/16/21 04/16/21 22:30 22:40 22:50 Temperature Pulse Rate 104 H 105 H 107 H Pulse Rate [ From Monitor] Respiratory 11 L 13 12 Rate Blood Pressure 118/68 118/68 127/60 O2 Sat by Pulse 100 99 99 Oximetry 04/16/21 04/16/21 04/16/21 23:00 23:10 23:20 Temperature Pulse Rate 101 H 105 H 104 H Pulse Rate [ From Monitor] Respiratory 14 15 14 Rate Blood Pressure 127/60 142/63 140/62 O2 Sat by Pulse 98 98 99 Oximetry 04/16/21 04/16/21 04/16/21 23:30 23:36 23:40 Temperature Pulse Rate 108 H 107 H 106 H Pulse Rate [ From Monitor] Respiratory 8 L 12 22 Rate Blood Pressure 140/62 142/71 142/71 O2 Sat by Pulse 98 99 98 Oximetry 04/16/21 04/17/21 04/17/21 23:50 00:00 00:10 Temperature 99.6 F Pulse Rate 98 H 97 H 102 H Pulse Rate [ 98 H From Monitor] Respiratory 15 16 21 Rate Blood Pressure 129/61 123/63 123/63 O2 Sat by Pulse 98 99 98 Oximetry 04/17/21 04/17/21 04/17/21 00:14 00:20 00:31 Temperature Pulse Rate 96 H 103 H 101 H Pulse Rate [ From Monitor] Respiratory 17 24 Rate Blood Pressure 123/63 106/61 151/67 O2 Sat by Pulse 99 100 98 Oximetry 04/17/21 04/17/21 04/17/21 00:41 00:51 01:01 Temperature Pulse Rate 101 H 105 H 103 H Pulse Rate [ From Monitor] Respiratory 15 17 13 Rate Blood Pressure 106/61 152/56 153/66 O2 Sat by Pulse 98 98 98 Oximetry 04/17/21 04/17/21 04/17/21 01:11 01:21 01:31 Temperature Pulse Rate 105 H 105 H 106 H Pulse Rate [ From Monitor] Respiratory 18 25 H 13 Rate Blood Pressure 153/66 153/66 157/70 O2 Sat by Pulse 97 98 98 Oximetry 04/17/21 04/17/21 04/17/21 01:41 01:51 02:01 Temperature Pulse Rate 108 H 100 H 102 H Pulse Rate [ From Monitor] Respiratory 18 20 18 Rate Blood Pressure 157/70 158/61 145/63 O2 Sat by Pulse 99 99 99 Oximetry 04/17/21 04/17/21 04/17/21 02:11 02:21 02:31 Temperature Pulse Rate 100 H 97 H 97 H Pulse Rate [ From Monitor] Respiratory 22 19 18 Rate Blood Pressure 145/63 152/63 135/61 O2 Sat by Pulse 100 99 99 Oximetry 04/17/21 04/17/21 04/17/21 02:40 02:51 03:01 Temperature Pulse Rate 96 H 96 H 108 H Pulse Rate [ From Monitor] Respiratory 15 21 13 Rate Blood Pressure 135/61 141/75 128/74 O2 Sat by Pulse 99 100 100 Oximetry 04/17/21 04/17/21 04/17/21 03:11 03:21 03:31 Temperature Pulse Rate 103 H 106 H 105 H Pulse Rate [ From Monitor] Respiratory 24 12 14 Rate Blood Pressure 128/74 144/66 137/69 O2 Sat by Pulse 99 99 99 Oximetry 04/17/21 04/17/21 04/17/21 03:41 03:51 04:00 Temperature 98.2 F Pulse Rate 105 H 104 H 101 H Pulse Rate [ 101 H From Monitor] Respiratory 19 11 L 16 Rate Blood Pressure 137/69 139/70 O2 Sat by Pulse 99 99 99 Oximetry 04/17/21 04/17/21 04/17/21 04:01 04:11 04:13 Temperature Pulse Rate 108 H 106 H 110 H Pulse Rate [ From Monitor] Respiratory 21 15 Rate Blood Pressure 139/70 139/70 188/82 O2 Sat by Pulse 99 99 99 Oximetry 04/17/21 04/17/21 04/17/21 04:21 04:31 04:41 Temperature Pulse Rate 109 H 102 H 110 H Pulse Rate [ From Monitor] Respiratory 8 L 19 12 Rate Blood Pressure 188/82 188/82 188/82 O2 Sat by Pulse 98 Oximetry 04/17/21 04/17/21 04/17/21 04:51 05:01 05:11 Temperature Pulse Rate 108 H 107 H 107 H Pulse Rate [ From Monitor] Respiratory 19 21 25 H Rate Blood Pressure 188/82 135/78 135/78 O2 Sat by Pulse 99 99 Oximetry 04/17/21 04/17/21 04/17/21 05:21 05:31 05:41 Temperature Pulse Rate 112 H 103 H 107 H Pulse Rate [ From Monitor] Respiratory 18 19 17 Rate Blood Pressure 93/63 74/39 74/39 O2 Sat by Pulse 100 99 99 Oximetry 04/17/21 04/17/21 04/17/21 05:51 06:01 08:36 Temperature 100.8 F H Pulse Rate 108 H 100 H Pulse Rate [ From Monitor] Respiratory 17 22 Rate Blood Pressure 103/76 103/76 O2 Sat by Pulse 99 100 Oximetry 04/17/21 08:42 Temperature Pulse Rate 96 H Pulse Rate [ From Monitor] Respiratory Rate Blood Pressure 139/84 O2 Sat by Pulse 100 Oximetry - Lab 04/17/21 15:35 04/17/21 05:04 Most recent lab results ABG pH 7.518 (7.320-7.450) H 04/17/21 03:09 ABG O2 Saturation 97.2 (0-100) 04/17/21 03:09 Calcium 9.6 mg/dL (8.4-10.2) 04/17/21 05:04 Urine Creatinine 24.4 mg/dL (0.1-20.0) H 04/16/21 00:12 Urine Sodium 97 mmol/L 04/16/21 00:12 Medications & Allergies - Medications Allergies/Adverse Reactions: Allergies No Known Allergies Allergy (Unverified 04/15/21 17:41) Home Medications: Home Medications Medication Instructions Recorded Confirmed Last Taken Type Betaxolol HCl [Betoptic S 0.25% 1 drop OU BID 04/16/21 04/16/21 Unknown History SUSP] Bimatoprost [Lumigan 0.01%] 1 drop OU QPM 04/16/21 04/16/21 Unknown History Brimonidine Tartrate [Brimonidine 5 ml OU BID 04/16/21 04/16/21 Unknown History Tartrate 0.2%] Furosemide [Lasix TAB] 40 mg PO QDAY 04/16/21 04/16/21 Unknown History Gabapentin [Neurontin] 300 mg PO Q8HR 04/16/21 04/16/21 Unknown History HYDROcodone/APAP 10-325 [[place] 1 each PO Q6HR PRN 04/16/21 04/16/21 Unknown History 10/325] Hydralazine HCl 50 mg PO Q4HR 04/16/21 04/16/21 Unknown History Insulin Aspart Prot/Insuln Asp 52 units SQ HS 04/16/21 04/16/21 Unknown History [Novolog Mix 70-30 Flexpen] Metoprolol [Lopressor] 25 mg PO BID 04/16/21 04/16/21 Unknown History Pravastatin [Pravachol] 20 mg PO QHS 04/16/21 04/16/21 Unknown History Promethazine [Phenergan] 25 mg PO Q6HR 04/16/21 04/16/21 Unknown History allopurinoL [Zyloprim] 150 mg PO QDAY 04/16/21 04/16/21 Unknown History Active Medications: Generic Name Dose Route Start Last Admin Trade Name Freq PRN Reason Stop Dose Admin Acetaminophen 650 mg 04/15/21 19:11 Acetaminophen 325 Mg Tab PO Q6H PRN Pain MILD(1-3)/Fever >100.5/SEXTON Lipase/Protease/Amylase 1 each 04/16/21 12:52 Lipase 10,500/Protease 25,000/Amylase 43,750 (Units) Dr Simpson FEEDTUBE PRN PRN For Clogged Feeding Tube Famotidine 20 mg 04/16/21 10:00 04/16/21 10:30 Famotidine 20 Mg/2 Ml Inj IV 20 mg DAILY WOLFGANG Administration Heparin Sodium (Porcine) 5,000 unit 04/15/21 22:00 04/16/21 21:07 Heparin 5,000 Unit/1 Ml Vial SUB-Q 5,000 unit Q12HR WOLFGANG Administration Hydralazine HCl 10 mg 04/16/21 18:00 04/16/21 17:05 Hydralazine 20 Mg/1 Ml Inj IV 10 mg Q4HR PRN Administration Hypertension Hydrophilic Ointment 1 applic 04/15/21 17:24 Lip Therapy Vaseline TP Q2HR PRN Dry Lips Propofol 1,000 mg in 100 mls @ 2.91 mls/hr 04/15/21 18:00 04/15/21 19:11 Diprivan 10 Mg/Ml IV 0 mcg/kg/min TITR WOLFGANG 0 mls/hr Titration Protocol 5 MCG/KG/MIN Dextrose/Sodium Chloride 1,000 mls @ 50 mls/hr 04/16/21 21:00 04/16/21 20:59 D5ns IV 50 mls/hr DIRECT WOLFGANG Administration Insulin Human Lispro 0 unit 04/16/21 15:00 04/17/21 06:21 Insulin Lispro 100 Unit/Ml SUB-Q 3 unit Q6HR WOLFGANG Administration Protocol Multi-Ingred Cream/Lotion/Oil/Oint 1 applic 04/15/21 17:24 04/16/21 11:19 Mineral Oil/Petrolatum, White Ophth Oint 3.5 Gm OU 1 applic Q4HR PRN Administration Dry Eye(s) Simple Syrup 15 ml 04/16/21 12:52 Simple Syrup 15 Ml FEEDTUBE PRN PRN Hypoglycemia Simple Syrup 30 ml 04/16/21 12:52 Simple Syrup 15 Ml FEEDTUBE PRN PRN Hypoglycemia Sodium Bicarbonate 325 mg 04/16/21 12:52 Sodium Bicarbonate 325 Mg Tab FEEDTUBE PRN PRN For Clogged Feeding Tube Sodium Chloride 10 ml 04/15/21 22:00 04/16/21 21:07 Sodium Chloride 0.9% 10 Ml Flush Syringe IV 10 ml BID WOLFGANG Administration Sodium Chloride 10 ml 04/15/21 19:11 Sodium Chloride 0.9% 10 Ml Flush Syringe IV PRN PRN LINE FLUSH
--- NOTE | 2021-04-17 09:11 | Progress Note ---
Assessment and Plan 80-year-old female with altered mental status does not have any bradycardia does have left bundle branch block with EF 45 to 50% with septal paradoxical secondary left bundle. Start low-dose beta-angel. Awaiting neurology consultation patient is moving extremities but no purposeful movement. Non- STEMI type II treat medically - Patient Problems (1) Acute hypoxemic respiratory failure Current Visit: Yes Status: Acute (2) Acute kidney injury (ROJELIO) with acute tubular necrosis (ATN) Current Visit: Yes Status: Acute (3) Acute metabolic encephalopathy due to hypoglycemia Current Visit: Yes Status: Acute (4) Hyponatremia syndrome Current Visit: Yes Status: Acute (5) Status epilepticus Current Visit: Yes Status: Acute (6) Systemic inflammatory response syndrome Current Visit: Yes Status: Acute (7) Diabetes mellitus Current Visit: Yes Status: Chronic (8) Non-STEMI (non-ST elevated myocardial infarction) Current Visit: Yes Status: Acute Plan to address problem: type 2 Subjective Date of service: 04/17/21 Principal diagnosis: ams Interval history: on vent moving limbs Objective Vital Signs Temp Pulse Pulse Resp BP Pulse Ox 04/17/21 08:42 96 H 139/84 100 04/17/21 08:36 100.8 F H 04/17/21 06:01 100 H 22 103/76 100 04/17/21 05:51 108 H 17 103/76 99 04/17/21 05:41 107 H 17 74/39 99 04/17/21 05:31 103 H 19 74/39 99 04/17/21 05:21 112 H 18 93/63 100 04/17/21 05:11 107 H 25 H 135/78 99 04/17/21 05:01 107 H 21 135/78 99 04/17/21 04:51 108 H 19 188/82 04/17/21 04:41 110 H 12 188/82 04/17/21 04:31 102 H 19 188/82 04/17/21 04:21 109 H 8 L 188/82 98 04/17/21 04:13 110 H 188/82 99 04/17/21 04:11 106 H 15 139/70 99 04/17/21 04:01 108 H 21 139/70 99 04/17/21 04:00 98.2 F 101 H 101 H 16 99 04/17/21 03:51 104 H 11 L 139/70 99 04/17/21 03:41 105 H 19 137/69 99 18 03:31 105 H 14 137/69 99 04/17/21 03:21 106 H 12 144/66 99 04/17/21 03:11 103 H 24 128/74 99 04/17/21 03:01 108 H 13 128/74 100 04/17/21 02:51 96 H 21 141/75 100 04/17/21 02:40 96 H 15 135/61 99 04/17/21 02:31 97 H 18 135/61 99 04/17/21 02:21 97 H 19 152/63 99 04/17/21 02:11 100 H 22 145/63 100 04/17/21 02:01 102 H 18 145/63 99 04/17/21 01:51 100 H 20 158/61 99 04/17/21 01:41 108 H 18 157/70 99 04/17/21 01:31 106 H 13 157/70 98 04/17/21 01:21 105 H 25 H 153/66 98 04/17/21 01:11 105 H 18 153/66 97 04/17/21 01:01 103 H 13 153/66 98 04/17/21 00:51 105 H 17 152/56 98 04/17/21 00:41 101 H 15 106/61 98 04/17/21 00:31 101 H 24 151/67 98 04/17/21 00:20 103 H 17 106/61 100 04/17/21 00:14 96 H 123/63 99 04/17/21 00:10 102 H 21 123/63 98 04/17/21 00:00 99.6 F 97 H 98 H 16 123/63 99 04/16/21 23:50 98 H 15 129/61 98 04/16/21 23:40 106 H 22 142/71 98 04/16/21 23:36 107 H 12 142/71 99 04/16/21 23:30 108 H 8 L 140/62 98 04/16/21 23:20 104 H 14 140/62 99 04/16/21 23:10 105 H 15 142/63 98 04/16/21 23:00 101 H 14 127/60 98 04/16/21 22:50 107 H 12 127/60 99 04/16/21 22:40 105 H 13 118/68 99 05//21 22:30 104 H 11 L 118/68 100 04/16/21 22:20 101 H 20 119/61 99 04/16/21 22:10 101 H 14 128/86 99 04/16/21 22:00 101 H 13 128/86 99 04/16/21 21:50 103 H 12 130/64 99 04/16/21 21:40 100 H 23 116/62 100 04/16/21 21:30 105 H 11 L 116/62 100 04/16/21 21:20 99 H 15 133/53 100 04/16/21 21:10 106 H 18 149/69 99 04/16/21 21:00 112 H 9 L 149/69 99 04/16/21 20:50 108 H 8 L 121/59 98 04/16/21 20:40 108 H 9 L 139/51 99 04/16/21 20:30 96 H 20 139/51 99 04/16/21 20:20 99 H 19 150/61 98 04/16/21 20:19 101 H 150/61 100 04/16/21 20:10 105 H 10 L 137/53 99 04/16/21 20:00 100.3 F H 102 H 101 H 12 137/53 98 04/16/21 19:50 106 H 14 137/53 99 04/16/21 19:40 105 H 11 L 130/51 99 04/16/21 19:30 100 H 22 130/51 99 04/16/21 19:20 103 H 12 133/51 99 04/16/21 19:10 96 H 22 153/68 99 04/16/21 19:00 103 H 13 153/68 99 04/16/21 18:50 97 H 22 136/51 99 04/16/21 18:40 106 H 7 L 142/68 99 04/16/21 18:30 103 H 13 142/68 100 04/16/21 18:20 102 H 23 142/68 100 04/16/21 18:10 102 H 17 145/63 99 04/16/21 18:00 106 H 9 L 145/63 99 04/16/21 17:50 106 H 15 139/59 98 04/16/21 17:40 106 H 12 128/60 98 04/16/21 17:30 102 H 23 128/60 99 04/16/21 17:20 103 H 8 L 181/97 100 04/16/21 17:10 99 H 21 181/97 99 04/16/21 17:05 101 H 181/97 04/16/21 17:00 102 H 15 181/97 99 04/16/21 16:50 100 H 15 188/92 98 04/16/21 16:40 101 H 14 186/97 98 04/16/21 16:30 103 H 14 186/97 98 04/16/21 16:20 101 H 7 L 164/89 98 04/16/21 16:10 99 H 10 L 153/94 99 04/16/21 16:00 98.8 F 94 H 88 15 189/78 97 04/16/21 15:50 83 18 189/78 98 04/16/21 15:40 93 H 21 197/77 100 04/16/21 15:30 96 H 9 L 197/77 99 04/16/21 15:20 97 H 14 170/86 99 04/16/21 15:15 95 H 184/82 99 04/16/21 15:10 90 18 184/82 99 04/16/21 15:00 94 H 22 184/82 99 04/16/21 14:50 93 H 14 148/60 99 04/16/21 14:40 87 16 166/74 99 04/16/21 14:30 90 17 166/74 99 04/16/21 14:20 87 15 162/70 99 04/16/21 14:10 86 20 173/68 99 04/16/21 14:00 91 H 18 173/68 99 04/16/21 13:50 93 H 12 173/70 99 04/16/21 13:40 90 21 173/70 99 04/16/21 13:30 86 19 173/70 99 04/16/21 13:20 91 H 19 174/82 100 04/16/21 13:10 88 20 174/82 99 04/16/21 13:00 86 22 174/82 99 04/16/21 12:50 80 16 154/70 99 04/16/21 12:40 87 22 166/83 100 04/16/21 12:30 84 17 160/69 99 04/16/21 12:20 88 20 189/74 99 04/16/21 12:10 86 15 166/83 99 04/16/21 12:00 99.6 F 92 H 88 20 166/83 99 04/16/21 11:50 91 H 15 158/81 99 04/16/21 11:40 87 15 143/62 99 04/16/21 11:30 81 16 143/62 100 04/16/21 11:27 81 161/91 98 04/16/21 11:20 86 18 161/91 99 04/16/21 11:10 91 H 23 182/71 98 04/16/21 11:00 91 H 20 182/71 98 04/16/21 10:50 86 20 144/51 99 04/16/21 10:40 84 16 160/78 99 04/16/21 10:30 90 17 160/78 98 04/16/21 10:20 92 H 21 169/70 99 04/16/21 10:10 87 17 154/69 98 04/16/21 10:00 87 15 154/69 99 04/16/21 09:50 89 17 165/60 98 04/16/21 09:40 90 17 152/70 98 04/16/21 09:30 88 15 152/70 98 04/16/21 09:20 83 16 135/65 97 04/16/21 09:10 86 19 141/64 97 - Physical Examination General: Appears Well HEENT: Positive: Other (Unresponsive) Neck: Positive: neck supple, trachea midline Cardiac: Positive: Reg Rate and Rhythm Lungs: Positive: clear to auscultation Neuro: Positive: Other (moves limbs) Abdomen: Positive: Unremarkable Skin: Negative: Rash, Wound Musculoskeletal: other Extremities: Present: upper extr. pulses, lower extr. pulses. Absent: edema - Labs and Meds Lipids 04/17/21 Range/Units 05:04 Triglycerides 103 (2-149) mg/dL Cholesterol 122 (50-199) mg/dL HDL Cholesterol 61 H (40-59) mg/dL Cholesterol/HDL Ratio 2.00 % Comprehensive Metabolic Panel 04/16/21 04/16/21 04/17/21 Range/Units 19:01 19:01 05:04 Sodium 125 L 129 L (137-145) mmol/L Potassium 5.5 H 5.6 H 4.1 D (3.6-5.0) mmol/L Chloride 84.5 L 86.1 L (98-107) mmol/L Carbon Dioxide 27 28 (22-30) mmol/L BUN 37 H 39 H (7-17) mg/dL Creatinine 3.5 H 3.5 H (0.6-1.2) mg/dL Glucose 236 H 202 H (65-100) mg/dL Calcium 9.6 9.6 (8.4-10.2) mg/dL - Imaging and Cardiology EKG: pending Echo: report reviewed (ef 45-50% no signficant regurtitations) - Telemetry EKG Rhythm: Sinus Tachycardia (lbbb with apc)
[2021-04-17] MEDS: FAMOTIDINE 20 MG TAB PO SCH (09:20)
[2021-04-17] MEDS: ACETAMINOPHEN 325 MG TAB PO PRN ×2 (09:22→22:13)
--- NOTE | 2021-04-17 09:22 | XRay Report ---
ABDOMEN 1 VIEW(S) 04/17/2021 9:09 AM INDICATION: OG tube placement. COMPARISON: Chest radiograph 04/17/2021 FINDINGS: The tip of the nasogastric tube projects over over the gastric lumen in appropriate position. Gas-filled and dilated loops of small bowel are noted over the upper abdomen, the largest measuring 5 cm. This finding is concerning for ileus versus mechanical obstruction. Follow-up is recommended. Signer Name: Kris Carmen MD Signed: 04/17/2021 9:18 AM Workstation Name: [id number]
[2021-04-17] MEDS: METOPROLOL TARTRATE 25 MG TAB PO SCH ×2 (09:23→22:13)
[2021-04-17] MEDS: HEPARIN 5,000 UNIT/1 ML VIAL SUB-Q SCH ×2 (09:24→22:13)
[2021-04-17] MEDS ORDERED: SODIUM CHLORIDE 1 GM TAB PO ONE (09:30)
[2021-04-17] MEDS: hydrALAZINE 20 MG/1 ML INJ IV PRN (10:51)
--- NOTE | 2021-04-17 15:33 | Progress Note ---
Assessment and Plan Assessment and plan: This is a 80-year-old female with HTN, DM, NH, breast CA s/p double mastectomy, TIA who presented with hypoglycemia, AMS who was admitted with SIRS, symptomatic bradycardia, acute metabolic encephalopathy, acute hypoxic respiratory failure, elevated TSH, hyperglycemia, hyponatremia, hypokalemia, ROJELIO and rhabdomyolysis Acute metabolic encephalopathy Acute hypoxic respiratory failure First-degree heart block Possible ileus versus mechanical obstruction Hyponatremia Hypochloremia Elevated TSH Mild rhabdomyolysis Leukocytosis Hypertension Diabetes mellitus -[facility], cardiology, nephrology, neurology, nutrition consulted, appreciate recommendations -04/15 CT head shows age-related atrophic change, chronic small vessel ischemic change, no CT evidence of acute large vessel territory ischemic injury, hem orrhage or mass -S/p antibiotic therapy x1 -S/p D10 -Accu-Cheks every 6, SSI -TF, on hold for now -D5W x1 L per [facility] -S/p IV calcium gluconate, regular insulin, -S/p transcutaneous pacing, intermittent demand pacer in place -04/15 echocardiogram shows left ventricular systolic function borderline, LVEF 45 to 50%, mild concentric LVH, paradoxical septal motion consistent with left bundle branch block with no clot identified in the left ventricle, calcified aortic valve without regurgitation or stenosis, trace MR, trace TR, no LA, RVSP is 24 mmHg -Renal ultrasound pending -Avoid ACEi/ARB in setting of ROJELIO -Avoid AV arron blocking agents -Avoid nephrotoxic agents and renally dose medications -Low-dose beta-angel -VAP bundle, wean mechanical ventilation as tolerated -TSH 14.1. T4 4.1 -Blood pressure monitoring per protocol -IV hydralazine as needed -Trend CBC, BMP, CK DVT/GI prophylaxis: Heparin subcu, PPI, SCDs to bilateral lower extremities while in bed Disposition: ICU The high probability of a clinically significant, sudden or life threatening deterioration of the [multi] system(s) required my full and direct attention, intervention and personal management. The aggregate critical care time was [35] minutes. This time is in addition to time spent performing reported procedures but includes the following: [x] Data Review and interpretation [x] Patient assessment and monitoring of vital signs [x] Documentation [x] Medication orders and management History Interval history: This is a 80-year-old female with hypertension, diabetes mellitus, NH, breast cancer s/p double mastectomy, and a TIA who presented with hypoglycemia and altered mental status on 04/15 via EMS. Per EMS patient was unresponsive on their arrival and her blood glucose was 38 and she received 1 amp of dextrose patient continued to be unresponsive and only moaned with her eyes deviating to the left. Work-up in the emergency department revealed SIRS, symptomatic bradycardia, acute metabolic encephalopathy, acute hypoxic respiratory failure, elevated TSH, hyperglycemia, hyponatremia, hyperkalemia, acute kidney injury with ATN, and rhabdomyolysis 04/16: Neurology consulted, COVID-19 PCR negative, D10 drip decreased and eventually discontinued by [facility] and started on D5W for 1 L. Hydralazine as needed. Patient had hyper kalemia today and was treated with D50, insulin and Kayexalate. This time examination patient is on assist control tidal volume 450, rate of 16, PEEP of 6 and 25% FiO2. 04/17: Patient started on low-dose beta-angel per cardiology, CPAP trial again per CCM, BUN/creatinine holding steady and hypochloremia/hyponatremia slightly improved and hypokalemia has resolved. This morning a KUB was obtained which was concerning for ileus versus mechanical obstruction and surgery was consulted. Patient was made n.p.o. and NG tube placed to wall suction. Patient was given suppository. Per RN patient did not have a BM even though she was given Kayexalate yesterday. Will obtain a KUB in the a.m. Neurology was consulted yesterday and will await further recommendations. Fifi updated at bedside today. Hospitalist Physical - Constitutional Vitals: Temp Pulse Resp BP Pulse Ox 99 F 93 H 17 141/46 99 04/17/21 12:00 04/17/21 13:21 04/17/21 13:21 04/17/21 13:21 04/17/21 13:21 General appearance: Present: no acute distress HEART Score - HEART Score Troponin: Troponin T 0.119 ng/mL (0.00-0.029) H* D 04/17/21 05:04 Results - Labs CBC & Chem 7: 04/16/21 05:02 04/17/21 05:04 Labs: Laboratory Last Values WBC 21.2 K/mm3 (4.5-11.0) H 04/16/21 05:02 RBC 4.43 M/mm3 (3.65-5.03) 04/16/21 05:02 Hgb 14.0 gm/dl (10.1-14.3) 04/16/21 05:02 Hct 43.4 % (30.3-42.9) H 04/16/21 05:02 MCV 98 fl (79-97) H 04/16/21 05:02 MCH 32 pg (28-32) 04/16/21 05:02 MCHC 32 % (30-34) 04/16/21 05:02 RDW 15.2 % (13.2-15.2) 04/16/21 05:02 Plt Count 200 K/mm3 (140-440) 04/16/21 05:02 Lymph % (Auto) 12.8 % (13.4-35.0) L 04/15/21 17:20 [place] % (Auto) 4.1 % (0.0-7.3) 04/15/21 17:20 Eos % (Auto) 0.3 % (0.0-4.3) 04/15/21 17:20 Baso % (Auto) 0.4 % (0.0-1.8) 04/15/21 17:20 Lymph # (Auto) 1.4 K/mm3 (1.2-5.4) 04/15/21 17:20 [place] # (Auto) 0.5 K/mm3 (0.0-0.8) 04/15/21 17:20 Eos # (Auto) 0.0 K/mm3 (0.0-0.4) 04/15/21 17:20 Baso # (Auto) 0.0 K/mm3 (0.0-0.1) 04/15/21 17:20 Add Manual Diff Complete 04/16/21 05:02 Total Counted 100 04/16/21 05:02 Seg Neutrophils % 82.4 % (40.0-70.0) H 04/15/21 17:20 Seg Neuts % (Manual) 84.0 % (40.0-70.0) H 04/16/21 05:02 Band Neutrophils % 3.0 % 04/16/21 05:02 Lymphocytes % (Manual) 2.0 % (13.4-35.0) L 04/16/21 05:02 Monocytes % (Manual) 10.0 % (0.0-7.3) H 04/16/21 05:02 Metamyelocytes % 1.0 % 04/16/21 05:02 Nucleated RBC % Not Reportable 04/16/21 05:02 Seg Neutrophils # 9.3 K/mm3 (1.8-7.7) H 04/15/21 17:20 Seg Neutrophils # Man 17.8 K/mm3 (1.8-7.7) H 04/16/21 05:02 Band Neutrophils # 0.6 K/mm3 04/16/21 05:02 Lymphocytes # (Manual) 0.4 K/mm3 (1.2-5.4) L 04/16/21 05:02 Abs React Lymphs (Man) 0.0 K/mm3 04/16/21 05:02 Monocytes # (Manual) 2.1 K/mm3 (0.0-0.8) H 04/16/21 05:02 Eosinophils # (Manual) 0.0 K/mm3 (0.0-0.4) 04/16/21 05:02 Basophils # (Manual) 0.0 K/mm3 (0.0-0.1) 04/16/21 05:02 Metamyelocytes # 0.2 K/mm3 04/16/21 05:02 Myelocytes # 0.0 K/mm3 04/16/21 05:02 Promyelocytes # 0.0 K/mm3 04/16/21 05:02 Blast Cells # 0.0 K/mm3 04/16/21 05:02 WBC Morphology Not Reportable 04/16/21 05:02 Hypersegmented Neuts Not Reportable 04/16/21 05:02 Hyposegmented Neuts Not Reportable 04/16/21 05:02 Hypogranular Neuts Not Reportable 04/16/21 05:02 Smudge Cells Not Reportable 04/16/21 05:02 Toxic Granulation Not Reportable 04/16/21 05:02 Toxic Vacuolation Not Reportable 04/16/21 05:02 Dohle Bodies Not Reportable 04/16/21 05:02 Pelger-Huet Anomaly Not Reportable 04/16/21 05:02 [place] Rods Not Reportable 04/16/21 05:02 Platelet Estimate Consistent w auto 04/16/21 05:02 Clumped Platelets Not Reportable 04/16/21 05:02 Plt Clumps, EDTA Not Reportable 04/16/21 05:02 Large Platelets Not Reportable 04/16/21 05:02 Giant Platelets Not Reportable 04/16/21 05:02 Platelet Satelliting Not Reportable 04/16/21 05:02 Plt Morphology Comment Not Reportable 04/16/21 05:02 RBC Morphology Not Reportable 04/16/21 05:02 Dimorphic RBCs Not Reportable 04/16/21 05:02 Polychromasia Not Reportable 04/16/21 05:02 Hypochromasia Not Reportable 04/16/21 05:02 Poikilocytosis Not Reportable 04/16/21 05:02 Anisocytosis Few 04/16/21 05:02 Microcytosis Not Reportable 04/16/21 05:02 Macrocytosis Not Reportable 04/16/21 05:02 Spherocytes Not Reportable 04/16/21 05:02 Pappenheimer Bodies Not Reportable 04/16/21 05:02 Sickle Cells Not Reportable 04/16/21 05:02 Target Cells Not Reportable 04/16/21 05:02 Tear Drop Cells Not Reportable 04/16/21 05:02 Ovalocytes Not Reportable 04/16/21 05:02 Helmet Cells Not Reportable 04/16/21 05:02 [place] Bodies Not Reportable 04/16/21 05:02 [place] Rings Not Reportable 04/16/21 05:02 [place] Cells Not Reportable 04/16/21 05:02 Bite Cells Not Reportable 04/16/21 05:02 Crenated Cell Not Reportable 04/16/21 05:02 Elliptocytes Not Reportable 04/16/21 05:02 Acanthocytes (Spur) Not Reportable 04/16/21 05:02 Rouleaux Not Reportable 04/16/21 05:02 Hemoglobin C Crystals Not Reportable 04/16/21 05:02 Schistocytes Not Reportable 04/16/21 05:02 Malaria parasites Not Reportable 04/16/21 05:02 James Bodies Not Reportable 04/16/21 05:02 Hem Pathologist Commnt No 04/16/21 05:02 PT 12.2 Sec. (12.2-14.9) 04/15/21 17:20 INR 0.91 (0.87-1.13) 04/15/21 17:20 APTT 31.8 Sec. (24.2-36.6) 04/15/21 17:20 ABG pH 7.518 (7.320-7.450) H 04/17/21 03:09 POC ABG pCO2 32.9 mmHg (32.0-48.0) 04/17/21 03:09 POC ABG pO2 88.3 mmHg (83-108) 04/17/21 03:09 POC ABG HCO3 26.1 04/17/21 03:09 ABG O2 Saturation 97.2 (0-100) 04/17/21 03:09 POC ABG Base Excess 3.6 04/17/21 03:09 ABG Hemoglobin 12.9 (12.0-17.5) 04/17/21 03:09 ABG Oxyhemoglobin 96.4 (94-98) 04/17/21 03:09 ABG Methemoglobin 0.3 (0.0-1.5) 04/17/21 03:09 ABG Sodium 126.4 mmol/L (136.0-145.0) L 04/17/21 03:09 ABG Potassium 4.2 mmol/L (3.40-4.50) 04/17/21 03:09 ABG Chloride 89.0 mmol/L (98-107) L 04/17/21 03:09 ABG Glucose 200 mg/dL (65-95) H 04/17/21 03:09 Carboxyhemoglobin 0.5 (0.5-1.5) 04/17/21 03:09 FiO2 % 25.0 04/17/21 03:09 Sodium 129 mmol/L (137-145) L 04/17/21 05:04 Potassium 4.1 mmol/L (3.6-5.0) D 04/17/21 05:04 Chloride 86.1 mmol/L (98-107) L 04/17/21 05:04 Carbon Dioxide 28 mmol/L (22-30) 04/17/21 05:04 Anion Gap 19 mmol/L 04/17/21 05:04 BUN 39 mg/dL (7-17) H 04/17/21 05:04 Creatinine 3.5 mg/dL (0.6-1.2) H 04/17/21 05:04 Estimated GFR 15 ml/min 04/17/21 05:04 BUN/Creatinine Ratio 11 % 04/17/21 05:04 Glucose 202 mg/dL (65-100) H 04/17/21 05:04 POC Glucose 276 mg/dL (70-105) H 04/17/21 11:55 Lactic Acid 1.50 mmol/L (0.7-2.0) 04/15/21 17:20 Calcium 9.6 mg/dL (8.4-10.2) 04/17/21 05:04 Total Bilirubin 0.70 mg/dL (0.1-1.2) 04/16/21 05:02 AST 65 units/L (5-40) H 04/16/21 05:02 ALT 31 units/L (7-56) 04/16/21 05:02 Alkaline Phosphatase 79 units/L (35-129) 04/16/21 05:02 Ammonia 46.0 umol/L (25-60) 04/15/21 17:20 Total Creatine Kinase 750 units/L (30-135) H 04/17/21 05:04 Troponin T 0.119 ng/mL (0.00-0.029) H* D 04/17/21 05:04 NT-Pro-B Natriuret Pep 697.9 pg/mL (0-900) 04/15/21 17:20 Total Protein 6.3 g/dL (6.3-8.2) D 04/16/21 05:02 Albumin 3.8 g/dL (3.9-5) L 04/16/21 05:02 Albumin/Globulin Ratio 1.5 % 04/16/21 05:02 Triglycerides 103 mg/dL (2-149) 04/17/21 05:04 Cholesterol 122 mg/dL (50-199) 04/17/21 05:04 LDL Cholesterol Direct 55 mg/dL (50-130) 04/17/21 05:04 HDL Cholesterol 61 mg/dL (40-59) H 04/17/21 05:04 Cholesterol/HDL Ratio 2.00 % 04/17/21 05:04 Procalcitonin 0.20 ng/mL (<0.15) 04/16/21 19:01 TSH 14.190 mlU/mL (0.270-4.200) H 04/15/21 17:20 Thyroxine (T4) 4.1 ug/dL (4.0-12.0) 04/16/21 19:01 Arterial Blood Glucose 200 mg/dL (65-95) H 04/17/21 03:09 Arterial Blood Ionized Calcium 4.4 mg/dL (4.6-5.3) L 04/17/21 03:09 Urine Color Straw (Yellow) 04/16/21 00:09 Urine Turbidity Clear (Clear) 04/16/21 00:09 Urine pH 9.0 (5.0-7.0) H 04/16/21 00:09 Ur Specific [place] 1.009 (1.003-1.030) 04/16/21 00:09 Urine Protein 100 mg/dl mg/dL (Negative) 04/16/21 00:09 Urine Glucose (UA) 150 mg/dL (Negative) 04/16/21 00:09 Urine Ketones Neg mg/dL (Negative) 04/16/21 00:09 Urine Blood Sm (Negative) 04/16/21 00:09 Urine Nitrite Neg (Negative) 04/16/21 00:09 Urine Bilirubin Neg (Negative) 04/16/21 00:09 Urine Urobilinogen < 2.0 mg/dL (<2.0) 04/16/21 00:09 Ur Leukocyte Esterase Neg (Negative) 04/16/21 00:09 Urine WBC (Auto) 2.0 /HPF (0.0-6.0) 04/16/21 00:09 Urine RBC (Auto) 9.0 /HPF (0.0-6.0) 04/16/21 00:09 U Epithel Cells (Auto) < 1.0 /HPF (0-13.0) 04/16/21 00:09 Urine Bacteria (Auto) 1+ /HPF (Negative) 04/16/21 00:09 Urine Creatinine 24.4 mg/dL (0.1-20.0) H 04/16/21 00:12 Urine Sodium 97 mmol/L 04/16/21 00:12 Salicylates 4.1 mg/dL (2.8-20.0) 04/15/21 17:20 Acetaminophen 5.0 ug/mL (10.0-30.0) L 04/15/21 17:20 Plasma/Serum Alcohol 0.02 % (0-0.07) 04/15/21 17:20 Coronavirus (PCR) Negative (Negative) 04/16/21 Unknown Microbiology: Microbiology 04/15/21 17:30 Peripheral/Venous Blood Culture - Preliminary NO GROWTH AFTER 24 HOURS 04/15/21 17:20 Peripheral/Venous Blood Culture - Preliminary NO GROWTH AFTER 24 HOURS 04/15/21 19:09 Tracheal Aspirate Sputum Culture - Final Kerr/IV: Voiding Method Indwelling Catheter Active Medications - Current Medications Current Medications: Generic Name Dose Route Start Last Admin Trade Name Freq PRN Reason Stop Dose Admin Acetaminophen 650 mg 04/15/21 19:11 04/17/21 09:22 Acetaminophen 325 Mg Tab PO 650 mg Q6H PRN Administration Pain MILD(1-3)/Fever >100.5/SEXTON Lipase/Protease/Amylase 1 each 04/16/21 12:52 Lipase 10,500/Protease 25,000/Amylase 43,750 (Units) Dr Cap FEEDTUBE PRN PRN For Clogged Feeding Tube Bisacodyl 10 mg 04/17/21 11:01 04/17/21 13:46 Bisacodyl 10 Mg Rect Supp LA 10 mg QDAY PRN Administration Constipation Famotidine 20 mg 04/17/21 10:00 04/17/21 09:20 Famotidine 20 Mg Tab PO 20 mg DAILY WOLFGANG Administration Heparin Sodium (Porcine) 5,000 unit 04/15/21 22:00 04/17/21 09:24 Heparin 5,000 Unit/1 Ml Vial SUB-Q 5,000 unit Q12HR WOLFGANG Administration Hydralazine HCl 10 mg 04/16/21 18:00 04/17/21 10:51 Hydralazine 20 Mg/1 Ml Inj IV 10 mg Q4HR PRN Administration Hypertension Hydrophilic Ointment 1 applic 04/15/21 17:24 Lip Therapy Vaseline TP Q2HR PRN Dry Lips Propofol 1,000 mg in 100 mls @ 2.91 mls/hr 04/15/21 18:00 04/15/21 19:11 Diprivan 10 Mg/Ml IV 0 mcg/kg/min TITR WOLFGANG 0 mls/hr Titration Protocol 5 MCG/KG/MIN Dextrose/Sodium Chloride 1,000 mls @ 50 mls/hr 04/16/21 21:00 04/16/21 20:59 D5ns IV 50 mls/hr DIRECT WOLFGANG Administration Insulin Human Lispro 0 unit 04/16/21 15:00 04/17/21 13:46 Insulin Lispro 100 Unit/Ml SUB-Q 4 unit Q6HR WOLFGANG Administration Protocol Metoprolol Tartrate 12.5 mg 04/17/21 10:00 04/17/21 09:23 Metoprolol Tartrate 25 Mg Tab PO 12.5 mg BID WOLFGANG Administration Multi-Ingred Cream/Lotion/Oil/Oint 1 applic 04/15/21 17:24 04/16/21 11:19 Mineral Oil/Petrolatum, White Ophth Oint 3.5 Gm OU 1 applic Q4HR PRN Administration Dry Eye(s) Simple Syrup 15 ml 04/16/21 12:52 Simple Syrup 15 Ml FEEDTUBE PRN PRN Hypoglycemia Simple Syrup 30 ml 04/16/21 12:52 Simple Syrup 15 Ml FEEDTUBE PRN PRN Hypoglycemia Sodium Bicarbonate 325 mg 04/16/21 12:52 Sodium Bicarbonate 325 Mg Tab FEEDTUBE PRN PRN For Clogged Feeding Tube Sodium Chloride 10 ml 04/15/21 22:00 04/17/21 09:24 Sodium Chloride 0.9% 10 Ml Flush Syringe IV 10 ml BID [id number] Administration Sodium Chloride 10 ml 04/15/21 19:11 Sodium Chloride 0.9% 10 Ml Flush Syringe IV PRN PRN LINE FLUSH Nutrition/Malnutrition Assess - Dietary Evaluation Nutrition/Malnutrition Findings: Nutrition Notes Start: 04/16/21 12:31 Freq: Status: Active Protocol: Document 04/16/21 12:31 CW (Rec: 04/16/21 12:52 CW [id number]) Nutrition Notes Need for Assessment generated from: MD Order,MST Initial or Follow up Assessment Current Diagnosis Acute Kidney Injury,Diabetes, Hypertension Other Pertinent Diagnosis Dementia, AMS, h/o CA, [place] Current Diet NPO Labs/Tests Na 131 K 5.9 BUN 34 Cr 2.9 BG 249 Pertinent Medications D10 at 75 ml/hr Humulin Kionex Height 5 ft 6 in Weight 97 kg Rufe Body Weight (kg) 59.09 BMI 34.4 Weight Status Obese Subjective/Other Information MD consult for write/manage TF . RN Screen for MST. Pt on mechanical vent. Recommend Nepro d/t renal related labs. Difficulty In Swallowing Current % PO Negligible Minimum of two criteria No physical signs of malnutrition #1 Nutrition Diagnosis Inadequate oral intake Etiology PO intake unavailable As Evidenced by Signs and Symptoms pt on mechanical vent Is patient on ventilator? Yes Is Patient Ambulatory and/or Out of Bed No REE-([facility]-confined to bed) 1748.712 Kcal/Kg value to use for calculation 15 Approximate Energy Requirements Using 1455 kcal/Kg Calculation Used for Recommendations Kcal/kg Additional Notes protien needs: >118g (>2 g/ kgIBW) Fluid needs: 1 ml/kcal Nutrition Intervention Change Diet Order: initiate TF Nutrition Support: Nepro at 35 ml/hr with a free water flush of 75 ml q4h for hyponatremia. Resume free water flush of 150 ml q4h once hyponatremia resolves. Kcal 1,512 Protein (gm) 68 Fluid (mL) 611 Goal #1 Initiate TF Goal #2 Meet needs as best as possible via TF Anticipated Discharge Needs: unable to determine at this time Follow-Up By: 04/18/21 Additional Comments F/U for TF at goal, TF tolerance, vent status
--- NOTE | 2021-04-17 15:52 | Consultation ---
History of Present Illness Consult date: 04/17/21 Chief complaint: Abdominal distention - History of present illness History of present illness: 80-year-old female with a history of hypertension, diabetes, [place], breast cancer who presented to the emergency room with hypoglycemia and altered mental status. Patient is currently intubated, on the ventilator and all history is obtained from the chart. An abdominal x-ray was obtained today for OG tube placement and showed prominent small bowel loops in the mid abdomen concerning for ileus versus mechanical bowel obstruction. Surgery is consulted for evaluation. There are no bowel movements documented in the nursing records. Patient was on tube feeding which she appeared to be tolerating. Past History Past Medical History: acute [place], cancer, diabetes, hypertension, hyperlipidemia, stroke Past Surgical History: Other (Unknown) Social history: no significant social history Family history: no significant family history Medications and Allergies Allergies Allergy/AdvReac Type Severity Reaction Status Date / Time No Known Allergies Allergy Unverified 04/15/21 17:41 Home Medications Medication Instructions Recorded Confirmed Last Taken Type Betaxolol HCl [Betoptic S 0.25% 1 drop OU BID 04/16/21 04/16/21 Unknown History SUSP] Bimatoprost [Lumigan 0.01%] 1 drop OU QPM 04/16/21 04/16/21 Unknown History Brimonidine Tartrate [Brimonidine 5 ml OU BID 04/16/21 04/16/21 Unknown History Tartrate 0.2%] Furosemide [Lasix TAB] 40 mg PO QDAY 04/16/21 04/16/21 Unknown History Gabapentin [Neurontin] 300 mg PO Q8HR 04/16/21 04/16/21 Unknown History HYDROcodone/APAP 10-325 [[place] 1 each PO Q6HR PRN 04/16/21 04/16/21 Unknown History 10/325] Hydralazine HCl 50 mg PO Q4HR 04/16/21 04/16/21 Unknown History Insulin Aspart Prot/Insuln Asp 52 units SQ HS 04/16/21 04/16/21 Unknown History [Novolog Mix 70-30 Flexpen] Metoprolol [Lopressor] 25 mg PO BID 04/16/21 04/16/21 Unknown History Pravastatin [Pravachol] 20 mg PO QHS 04/16/21 04/16/21 Unknown History Promethazine [Phenergan] 25 mg PO Q6HR 04/16/21 04/16/21 Unknown History allopurinoL [Zyloprim] 150 mg PO QDAY 04/16/21 04/16/21 Unknown History Active Meds: Active Medications Acetaminophen (Acetaminophen 325 Mg Tab) 650 mg PO Q6H PRN PRN Reason: Pain MILD(1-3)/Fever >100.5/SEXTON Last Admin: 04/17/21 09:22 Dose: 650 mg Documented by: Lipase/Protease/Amylase (Lipase 10,500/Protease 25,000/Amylase 43,750 (Units) Dr Simpson) 1 each FEEDTUBE PRN PRN PRN Reason: For Clogged Feeding Tube Bisacodyl (Bisacodyl 10 Mg Rect Supp) 10 mg FL QDAY PRN PRN Reason: Constipation Last Admin: 04/17/21 13:46 Dose: 10 mg Documented by: Famotidine (Famotidine 20 Mg Tab) 20 mg PO DAILY WOLFGANG Last Admin: 04/17/21 09:20 Dose: 20 mg Documented by: Heparin Sodium (Porcine) (Heparin 5,000 Unit/1 Ml Vial) 5,000 unit SUB-Q Q12HR WOLFGANG Last Admin: 04/17/21 09:24 Dose: 5,000 unit Documented by: Hydralazine HCl (Hydralazine 20 Mg/1 Ml Inj) 10 mg IV Q4HR PRN PRN Reason: Hypertension Last Admin: 04/17/21 10:51 Dose: 10 mg Documented by: Hydrophilic Ointment (Lip Therapy Vaseline) 1 applic TP Q2HR PRN PRN Reason: Dry Lips Propofol (Diprivan 10 Mg/Ml) 1,000 mg in 100 mls @ 2.91 mls/hr IV TITR WOLFGANG; Protocol Last Titration: 04/15/21 19:11 Dose: 0 mcg/kg/min, 0 mls/hr Documented by: Dextrose/Sodium Chloride (D5ns) 1,000 mls @ 50 mls/hr IV DIRECT WOLFGANG Last Admin: 04/16/21 20:59 Dose: 50 mls/hr Documented by: Insulin Human Lispro (Insulin Lispro 100 Unit/Ml) 0 unit SUB-Q Q6HR WOLFGANG; Protocol Last Admin: 04/17/21 13:46 Dose: 4 unit Documented by: Metoprolol Tartrate (Metoprolol Tartrate 25 Mg Tab) 12.5 mg PO BID WOLFGANG Last Admin: 04/17/21 09:23 Dose: 12.5 mg Documented by: Miscellaneous Medication (Bimatoprost [Lumigan 0.01%]) 1 drop OU QPM WOLFGANG Miscellaneous Medication (Brimonidine Tartrate [Brimonidine Tartrate 0.2%]) 5 ml OU BID WOLFGANG Miscellaneous Medication (Betaxolol Hcl [Betoptic S 0.25% Susp]) 1 drop OU BID WOLFGANG Multi-Ingred Cream/Lotion/Oil/Oint (Mineral Oil/Petrolatum, White Ophth Oint 3.5 Gm) 1 applic OU Q4HR PRN PRN Reason: Dry Eye(s) Last Admin: 04/16/21 11:19 Dose: 1 applic Documented by: Simple Syrup (Simple Syrup 15 Ml) 15 ml FEEDTUBE PRN PRN PRN Reason: Hypoglycemia Simple Syrup (Simple Syrup 15 Ml) 30 ml FEEDTUBE PRN PRN PRN Reason: Hypoglycemia Sodium Bicarbonate (Sodium Bicarbonate 325 Mg Tab) 325 mg FEEDTUBE PRN PRN PRN Reason: For Clogged Feeding Tube Sodium Chloride (Sodium Chloride 0.9% 10 Ml Flush Syringe) 10 ml IV BID WOLFGANG Last Admin: 04/17/21 09:24 Dose: 10 ml Documented by: Sodium Chloride (Sodium Chloride 0.9% 10 Ml Flush Syringe) 10 ml IV PRN PRN PRN Reason: LINE FLUSH Review of Systems ROS unobtainable: due to endotracheal tube, due to mental status Exam Vital Signs Pulse Resp Pulse Ox 58 L 21 95 04/15/21 17:06 04/15/21 17:06 04/15/21 17:06 Narrative exam: Gen.: On ventilator. Appears agitated. Does not follow commands. ENT: Trachea midline. ET tube and NG tube in place. Gastric light brown drainage from NG tube. No lymphadenopathy. CV: S1, S2 present Respiratory: No audible wheezes Abdomen: Soft, nondistended, nontender. There is a midline epigastric hernia which is soft and easily reducible. There are no skin changes. No rebound, rigidity, guarding Extremities: No clubbing, cyanosis, edema Results - Labs 04/16/21 05:02 04/17/21 05:04 Abnormal lab results 05/04/16/21 04/16/21 Range/Units 16:09 18:15 19:01 ABG pH (7.320-7.450) ABG Sodium (136.0-145.0) mmol/L ABG Chloride (98-107) mmol/L ABG Glucose (65-95) mg/dL Sodium 125 L (137-145) mmol/L Potassium 5.5 H (3.6-5.0) mmol/L Chloride 84.5 L (98-107) mmol/L BUN 37 H (7-17) mg/dL Creatinine 3.5 H (0.6-1.2) mg/dL Glucose 236 H (65-100) mg/dL POC Glucose 300 H 287 H (70-105) mg/dL Total Creatine Kinase (30-135) units/L Troponin T (0.00-0.029) ng/mL HDL Cholesterol (40-59) mg/dL Arterial Blood Glucose (65-95) mg/dL Arterial Blood Ionized Calcium (4.6-5.3) mg/dL 04/16/21 04/16/21 04/17/21 Range/Units 19:01 23:48 03:09 ABG pH 7.518 H (7.320-7.450) ABG Sodium 126.4 L (136.0-145.0) mmol/L ABG Chloride 89.0 L (98-107) mmol/L ABG Glucose 200 H (65-95) mg/dL Sodium (137-145) mmol/L Potassium 5.6 H (3.6-5.0) mmol/L Chloride (98-107) mmol/L BUN (7-17) mg/dL Creatinine (0.6-1.2) mg/dL Glucose (65-100) mg/dL POC Glucose 243 H (70-105) mg/dL Total Creatine Kinase (30-135) units/L Troponin T (0.00-0.029) ng/mL HDL Cholesterol (40-59) mg/dL Arterial Blood Glucose 200 H (65-95) mg/dL Arterial Blood Ionized Calcium 4.4 L (4.6-5.3) mg/dL 04/17/21 04/17/21 04/17/21 Range/Units 05:04 06:14 11:55 ABG pH (7.320-7.450) ABG Sodium (136.0-145.0) mmol/L ABG Chloride (98-107) mmol/L ABG Glucose (65-95) mg/dL Sodium 129 L (137-145) mmol/L Potassium (3.6-5.0) mmol/L Chloride 86.1 L (98-107) mmol/L BUN 39 H (7-17) mg/dL Creatinine 3.5 H (0.6-1.2) mg/dL Glucose 202 H (65-100) mg/dL POC Glucose 208 H 276 H (70-105) mg/dL Total Creatine Kinase 750 H (30-135) units/L Troponin T 0.119 H* D (0.00-0.029) ng/mL HDL Cholesterol 61 H (40-59) mg/dL Arterial Blood Glucose (65-95) mg/dL Arterial Blood Ionized Calcium (4.6-5.3) mg/dL Diabetes panel 04/16/21 04/16/21 04/17/21 Range/Units 19:01 19:01 05:04 Sodium 125 L 129 L (137-145) mmol/L Potassium 5.5 H 5.6 H 4.1 D (3.6-5.0) mmol/L Chloride 84.5 L 86.1 L (98-107) mmol/L Carbon Dioxide 27 28 (22-30) mmol/L BUN 37 H 39 H (7-17) mg/dL Creatinine 3.5 H 3.5 H (0.6-1.2) mg/dL Glucose 236 H 202 H (65-100) mg/dL Calcium 9.6 9.6 (8.4-10.2) mg/dL Triglycerides 103 (2-149) mg/dL HDL Cholesterol 61 H (40-59) mg/dL Thyroid panel 04/16/21 Range/Units 19:01 Thyroxine (T4) 4.1 (4.0-12.0) ug/dL Calcium panel 04/16/21 04/17/21 Range/Units 19:01 05:04 Calcium 9.6 9.6 (8.4-10.2) mg/dL Pituitary panel 04/16/21 04/16/21 04/16/21 Range/Units 19:01 19:01 19:01 Sodium 125 L (137-145) mmol/L Potassium 5.5 H 5.6 H (3.6-5.0) mmol/L Chloride 84.5 L (98-107) mmol/L Carbon Dioxide 27 (22-30) mmol/L BUN 37 H (7-17) mg/dL Creatinine 3.5 H (0.6-1.2) mg/dL Glucose 236 H (65-100) mg/dL Calcium 9.6 (8.4-10.2) mg/dL Thyroxine (T4) 4.1 (4.0-12.0) ug/dL 04/17/21 Range/Units 05:04 Sodium 129 L (137-145) mmol/L Potassium 4.1 D (3.6-5.0) mmol/L Chloride 86.1 L (98-107) mmol/L Carbon Dioxide 28 (22-30) mmol/L BUN 39 H (7-17) mg/dL Creatinine 3.5 H (0.6-1.2) mg/dL Glucose 202 H (65-100) mg/dL Calcium 9.6 (8.4-10.2) mg/dL Thyroxine (T4) (4.0-12.0) ug/dL Adrenal panel 04/16/21 04/16/21 04/17/21 Range/Units 19:01 19:01 05:04 Sodium 125 L 129 L (137-145) mmol/L Potassium 5.5 H 5.6 H 4.1 D (3.6-5.0) mmol/L Chloride 84.5 L 86.1 L (98-107) mmol/L Carbon Dioxide 27 28 (22-30) mmol/L BUN 37 H 39 H (7-17) mg/dL Creatinine 3.5 H 3.5 H (0.6-1.2) mg/dL Glucose 236 H 202 H (65-100) mg/dL Calcium 9.6 9.6 (8.4-10.2) mg/dL - Imaging Abdominal x-ray: report reviewed, image reviewed Assessment and Plan 80-year-old female with 1. ileus vs sbo 2. hyponatremia 3. VDRF 4. ROJELIO 5. metabolic encephalopathy Pt stable. Likely with ileus due to immobility and metabolic derangements. Plan: 1. NGT to LIWS 2. 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 daily BMP with replacement of lytes as needed 4. turning q2 5. repeat abd xray in am 6. neuro consult pending Thank you for this consultation. Please call with any questions or concerns. Evaluation and treatment of this patient was during the time of the national and state emergency arising from COVID19 coronavirus pandemic. Treatment and procedures performed meet the current and available best practice and guidelines for patient during the COVID pandemic.
[2021-04-17 16:01] LABS: Hematocrit 34.9 % (30.3-42.9); Hemoglobin 11.7 gm/dl (10.1-14.3); Mean Corpuscular HGB Conc 33 % (30-34); Mean Corpuscular Volume 95 fl (79-97); Platelet Count 181 K/mm3 (140-440); Red Blood Count 3.67 M/mm3 (3.65-5.03); Red Cell Distribution Width 15.2 % (13.2-15.2)
[2021-04-17 16:29] LABS: Creatine Kinase MB 9.1 ng/mL (0.0-4.0)
--- NOTE | 2021-04-17 17:52 | Electrocardiograph Report ---
[facility] Test Date: 2021-04-15 Test Time: 17:36:30 Pat Name: ARUN CAMPOS Department: Room: A260 1 Gender: F [employer]er Furniture: KELIN : 1940 Requested By: GISSELL COOK Order Number: [id number] Reading MD: Ayleen Oden Measurements Intervals [place] Rate: 46 P: 9 NH: 238 QRS: -5 QRSD: 168 T: 137 QT: 548 QTc: 478 Interpretive Statements Sinus bradycardia Prolonged NH interval Left bundle branch block No previous ECG available for comparison Electronically Signed On 04-17-2021 17:51:34 EDT by Ayleen Oden
[2021-04-17] MEDS: D5W/0.9% NACL 1,000 ML IV SCH (17:53)
[2021-04-17] MEDS: LATANOPROST 0.005% OPHTH SOLN 2.5 ML OU SCH (17:53)
[2021-04-17] MEDS ORDERED: NON-FORMULARY EACH (Bimatoprost [Lumigan 0.01%] 5 ML Drops) OU SCH (18:00)
[2021-04-17] MEDS ORDERED: NON-FORMULARY EACH (Brimonidine Tartrate [Brimonidine Tartrate 0.2%] 15 ML Drops) OU SCH (22:00)
[2021-04-17] MEDS: BRIMONIDINE 0.15% OPHTH SOLN OU SCH (22:24)
[2021-04-18] MEDS: INSULIN LISPRO 100 UNIT/ML SUB-Q SCH ×4 (00:22→17:55)
--- NOTE | 2021-04-18 03:29 | XRay Report ---
CHEST 1 VIEW 04/18/2021 2:13 AM INDICATION / CLINICAL INFORMATION: follow up respiratory failure. COMPARISON: One view of the chest from 04/17/2021. FINDINGS: SUPPORT DEVICES: Unchanged. HEART / MEDIASTINUM: Stable. LUNGS / PLEURA: Mildly reduced lung volumes are again seen with probable bibasilar atelectasis. No si gnificant pleural effusion. No pneumothorax. ADDITIONAL FINDINGS: No significant additional findings. IMPRESSION: Stable appearance of the chest. Signer Name: Сергей Gonzalez MD Signed: 04/18/2021 3:24 AM Workstation Name: [id number]
--- NOTE | 2021-04-18 03:30 | XRay Report ---
ABDOMEN 1 VIEW INDICATION / CLINICAL INFORMATION: Reevaluate possible ileus. COMPARISON: KUB from 04/17/2021. FINDINGS: TUBES / LINES: An NG tube has retracted with the tip coiled along the proximal gastric body. BOWEL GAS PATTERN: Previously seen dilated small bowel loops have resolved. No other significant abno rmality. FREE AIR / EXTRALUMINAL GAS: None seen. ADDITIONAL FINDINGS: No significant additional findings. IMPRESSION: Interval resolution of previously seen small bowel dilatation with additional findings as above. Signer Name: Сергей Gonzalez MD Signed: 04/18/2021 3:25 AM Workstation Name: [id number]
[2021-04-18 05:58] LABS: Hematocrit 32.4 % (30.3-42.9); Hemoglobin 10.6 gm/dl (10.1-14.3); Mean Corpuscular HGB Conc 33 % (30-34); Mean Corpuscular Volume 97 fl (79-97); Platelet Count 140 K/mm3 (140-440); Red Blood Count 3.34 M/mm3 (3.65-5.03); Red Cell Distribution Width 15.3 % (13.2-15.2)
[2021-04-18 06:37] LABS: Calcium 8.5 mg/dL (8.4-10.2)
[2021-04-18] MEDS: POTASSIUM CHLORIDE 10 MEQ 10 MEQ/100 ML BAG IV SCH ×4 (09:04→13:41)
--- NOTE | 2021-04-18 10:12 | Progress Note ---
Assessment and Plan #Symptomatic bradycardia * Telemetry reviewed: Sinus rhythm 80 with frequent PACs and PVCs, left bundle branch block. * Twelve-lead ECG shows sinus bradycardia heart rate 48 with first-degree AV block and left bundle branch block, no acute ischemic changes. * Echocardiogram is pending * Continue current cardiac regimen: Metoprolol 12.5 mg p.o. twice daily #NSTEMI suspect type II * Troponins are elevated and trending downward. Continue to trend CE's. #Hypertension * Patient is mildly hypertensive. Recommend conservative management pending neurology recommendations in setting of encephalopathy/possible CVA. #Acute on chronic renal disease in setting of chronic diabetes * No ACEI/ARB in setting of acute kidney injury. Avoid nephrotoxic agents. Nephrology is following. #DVT prophylaxis * Heparin subQ We will follow This patient was seen in conjunction with Dr Tejeda who agrees with this assessment and plan of care - Patient Problems (1) Acute metabolic encephalopathy due to hypoglycemia Current Visit: Yes Status: Acute (2) Acute hypoxemic respiratory failure Current Visit: Yes Status: Acute (3) Symptomatic bradycardia Current Visit: Yes Status: Acute (4) Acute kidney injury Current Visit: Yes Status: Acute (5) DVT prophylaxis Current Visit: Yes Status: Acute (6) Diabetes mellitus Current Visit: Yes Status: Chronic Subjective Date of service: 04/18/21 Principal diagnosis: Ac. resp failure; AMS; Hypoglycemia; ROJELIO; Hyperkalemia; DM II Interval history: Patient resting in bed. Intubated and sedated. Telemetry reviewed: Sinus rhythm 80 with frequent PACs and PVCs with left bundle branch block. No events Objective Last Vital Signs Temp 100.2 F H 04/18/21 07:25 Pulse 100 H 04/18/21 09:00 Resp 12 04/18/21 09:00 BP 125/69 04/18/21 09:00 Pulse Ox 98 04/18/21 09:00 - Physical Examination General: Appears Well HEENT: Positive: Other (Intubated and sedated) Neck: Positive: neck supple, trachea midline Cardiac: Positive: Reg Rate and Rhythm, S1/S2 Lungs: Positive: Ventilated Respirations Neuro: Positive: Other (Intubated and sedated) Abdomen: Positive: Unremarkable Skin: Negative: Rash, Wound Musculoskeletal: other (Intubated and sedated) Extremities: Present: upper extr. pulses, lower extr. pulses. Absent: edema - Labs and Meds Cardiac Enzymes 04/17/21 Range/Units 15:35 CK-MB (CK-2) 9.1 H (0.0-4.0) ng/mL CBC 04/17/21 04/18/21 Range/Units 15:35 05:34 WBC 17.1 H 15.3 H (4.5-11.0) K/mm3 RBC 3.67 3.34 L (3.65-5.03) M/mm3 Hgb 11.7 10.6 (10.1-14.3) gm/dl Hct 34.9 D 32.4 (30.3-42.9) % Plt Count 181 140 (140-440) K/mm3 Comprehensive Metabolic Panel 04/18/21 Range/Units 05:34 Sodium 134 L (137-145) mmol/L Potassium 3.0 L D (3.6-5.0) mmol/L Chloride 93.5 L (98-107) mmol/L Carbon Dioxide 27 (22-30) mmol/L BUN 42 H (7-17) mg/dL Creatinine 3.1 H (0.6-1.2) mg/dL Glucose 152 H (65-100) mg/dL Calcium 8.5 (8.4-10.2) mg/dL - Imaging and Cardiology EKG: report reviewed, image reviewed Echo: report reviewed (ef 45-50% no signficant regurtitations) - Telemetry EKG Rhythm: Sinus Rhythm - EKG Sinus rhythms and dysrhythmias: sinus bradycardia
[2021-04-18] MEDS: METOPROLOL TARTRATE 25 MG TAB PO SCH ×2 (10:56→21:12)
[2021-04-18] MEDS: HEPARIN 5,000 UNIT/1 ML VIAL SUB-Q SCH ×2 (10:56→21:12)
[2021-04-18] MEDS: FAMOTIDINE 20 MG TAB PO SCH (10:57)
[2021-04-18] MEDS: BRIMONIDINE 0.15% OPHTH SOLN OU SCH ×2 (10:57→21:12)
--- NOTE | 2021-04-18 11:07 | Consultation ---
History of Present Illness Consult date: 04/17/21 Reason for Consult: AMS History of present illness: his is an 80-year-old female with history of hypertension, diabetes mellitus, CA, breast CA in remission, TIA who presents with hypoglycemia and altered mental status. Nephew at the bedside providing history. Patient is currently altered nonverbal. Patient spoke with nephew per phone. She felt her sugar was low. She informed her nephew that she was can get something to eat. Nephew did not hear from patient throughout the day. He has neighbor to check on her. Patient was altered. EMS found patient flat on her back in bed. She was not responsive. Blood sugar 38 per EMS. Patient received 1 ampoule of dextrose. She continued to be unresponsive. Patient is moaning with eyes deviated to the left initially. Patient is moving eyes and right upper extremity. However she continues to moan unintelligibly. With Nephew on the Phone , video issues. The nephew reports acute onset of Mental Status . Past History Past Medical History: other (See HPI) Medications and Allergies Allergies Allergy/AdvReac Type Severity Reaction Status Date / Time No Known Allergies Allergy Unverified 04/15/21 17:41 Home Medications Medication Instructions Recorded Confirmed Last Taken Type Betaxolol HCl [Betoptic S 0.25% 1 drop OU BID 04/16/21 04/16/21 Unknown History SUSP] Bimatoprost [Lumigan 0.01%] 1 drop OU QPM 04/16/21 04/16/21 Unknown History Brimonidine Tartrate [Brimonidine 5 ml OU BID 04/16/21 04/16/21 Unknown History Tartrate 0.2%] Furosemide [Lasix TAB] 40 mg PO QDAY 04/16/21 04/16/21 Unknown History Gabapentin [Neurontin] 300 mg PO Q8HR 04/16/21 04/16/21 Unknown History HYDROcodone/APAP 10-325 [[place] 1 each PO Q6HR PRN 04/16/21 04/16/21 Unknown History 10/325] Hydralazine HCl 50 mg PO Q4HR 04/16/21 04/16/21 Unknown History Insulin Aspart Prot/Insuln Asp 52 units SQ HS 04/16/21 04/16/21 Unknown History [Novolog Mix 70-30 Flexpen] Metoprolol [Lopressor] 25 mg PO BID 04/16/21 04/16/21 Unknown History Pravastatin [Pravachol] 20 mg PO QHS 04/16/21 04/16/21 Unknown History Promethazine [Phenergan] 25 mg PO Q6HR 04/16/21 04/16/21 Unknown History allopurinoL [Zyloprim] 150 mg PO QDAY 04/16/21 04/16/21 Unknown History Active Meds: Active Medications Acetaminophen (Acetaminophen 325 Mg Tab) 650 mg PO Q6H PRN PRN Reason: Pain MILD(1-3)/Fever >100.5/SEXTON Last Admin: 04/17/21 09:22 Dose: 650 mg Documented by: Lipase/Protease/Amylase (Lipase 10,500/Protease 25,000/Amylase 43,750 (Units) Dr Simpson) 1 each FEEDTUBE PRN PRN PRN Reason: For Clogged Feeding Tube Bisacodyl (Bisacodyl 10 Mg Rect Supp) 10 mg OK QDAY PRN PRN Reason: Constipation Last Admin: 04/17/21 13:46 Dose: 10 mg Documented by: Famotidine (Famotidine 20 Mg Tab) 20 mg PO DAILY [place] Last Admin: 04/17/21 09:20 Dose: 20 mg Documented by: Heparin Sodium (Porcine) (Heparin 5,000 Unit/1 Ml Vial) 5,000 unit SUB-Q Q12HR [facility] Last Admin: 04/17/21 09:24 Dose: 5,000 unit Documented by: Hydralazine HCl (Hydralazine 20 Mg/1 Ml Inj) 10 mg IV Q4HR PRN PRN Reason: Hypertension Last Admin: 04/17/21 10:51 Dose: 10 mg Documented by: Hydrophilic Ointment (Lip Therapy Vaseline) 1 applic TP Q2HR PRN PRN Reason: Dry Lips Propofol (Diprivan 10 Mg/Ml) 1,000 mg in 100 mls @ 2.91 mls/hr IV TITR [facility]; Protocol Last Titration: 04/15/21 19:11 Dose: 0 mcg/kg/min, 0 mls/hr Documented by: Dextrose/Sodium Chloride (D5ns) 1,000 mls @ 50 mls/hr IV DIRECT [facility] Last Admin: 04/16/21 20:59 Dose: 50 mls/hr Documented by: Insulin Human Lispro (Insulin Lispro 100 Unit/Ml) 0 unit SUB-Q Q6HR [facility]; Protocol Last Admin: 04/17/21 13:46 Dose: 4 unit Documented by: Metoprolol Tartrate (Metoprolol Tartrate 25 Mg Tab) 12.5 mg PO BID [facility] Last Admin: 04/17/21 09:23 Dose: 12.5 mg Documented by: Multi-Ingred Cream/Lotion/Oil/Oint (Mineral Oil/Petrolatum, White Ophth Oint 3.5 Gm) 1 applic OU Q4HR PRN PRN Reason: Dry Eye(s) Last Admin: 04/16/21 11:19 Dose: 1 applic Documented by: Simple Syrup (Simple Syrup 15 Ml) 15 ml FEEDTUBE PRN PRN PRN Reason: Hypoglycemia Simple Syrup (Simple Syrup 15 Ml) 30 ml FEEDTUBE PRN PRN PRN Reason: Hypoglycemia Sodium Bicarbonate (Sodium Bicarbonate 325 Mg Tab) 325 mg FEEDTUBE PRN PRN PRN Reason: For Clogged Feeding Tube Sodium Chloride (Sodium Chloride 0.9% 10 Ml Flush Syringe) 10 ml IV BID [facility] Last Admin: 04/17/21 09:24 Dose: 10 ml Documented by: Sodium Chloride (Sodium Chloride 0.9% 10 Ml Flush Syringe) 10 ml IV PRN PRN PRN Reason: LINE FLUSH Physical Examination - Vital Signs Vital Signs: Vital Signs Pulse Resp Pulse Ox 58 L 21 95 04/15/21 17:06 04/15/21 17:06 04/15/21 17:06 - Physical Exam Narrative exam: The patient could not be examined due to failure of Video. Results - Laboratory Findings CBC and BMP: 04/18/21 05:34 04/18/21 05:34 Abnormal Lab Findings: Abnormal Labs 04/15/21 04/15/21 04/15/21 17:20 17:20 17:20 WBC 11.2 H Hct 43.0 H MCV RDW 15.3 H Lymph % (Auto) 12.8 L Seg Neutrophils % 82.4 H Seg Neuts % (Manual) Lymphocytes % (Manual) Monocytes % (Manual) Seg Neutrophils # 9.3 H Seg Neutrophils # Man Lymphocytes # (Manual) Monocytes # (Manual) ABG pH POC ABG pCO2 POC ABG pO2 ABG Oxyhemoglobin ABG Sodium ABG Potassium ABG Chloride ABG Glucose Sodium 129 L Potassium 7.1 H* Chloride 91.9 L BUN 35 H Creatinine 2.8 H Glucose POC Glucose Calcium AST 69 H Total Creatine Kinase 1000 H Troponin T Albumin HDL Cholesterol TSH Arterial Blood Glucose Arterial Blood Ionized Calcium Urine pH Urine Creatinine Acetaminophen 04/15/21 04/15/21 04/15/21 17:20 17:20 20:49 WBC Hct MCV RDW Lymph % (Auto) Seg Neutrophils % Seg Neuts % (Manual) Lymphocytes % (Manual) Monocytes % (Manual) Seg Neutrophils # Seg Neutrophils # Man Lymphocytes # (Manual) Monocytes # (Manual) ABG pH 7.557 H POC ABG pCO2 30.0 L POC ABG pO2 493.3 H ABG Oxyhemoglobin 99.0 H ABG Sodium 131.5 L ABG Potassium 4.7 H ABG Chloride 94.0 L ABG Glucose 218 H Sodium Potassium Chloride BUN Creatinine Glucose POC Glucose Calcium AST Total Creatine Kinase Troponin T Albumin HDL Cholesterol TSH 14.190 H Arterial Blood Glucose 218 H Arterial Blood Ionized Calcium 5.4 H Urine pH Urine Creatinine Acetaminophen 5.0 L 04/15/21 04/15/21 04/16/21 21:23 23:15 00:09 WBC Hct MCV RDW Lymph % (Auto) Seg Neutrophils % Seg Neuts % (Manual) Lymphocytes % (Manual) Monocytes % (Manual) Seg Neutrophils # Seg Neutrophils # Man Lymphocytes # (Manual) Monocytes # (Manual) ABG pH POC ABG pCO2 POC ABG pO2 ABG Oxyhemoglobin ABG Sodium ABG Potassium ABG Chloride ABG Glucose Sodium Potassium Chloride BUN Creatinine Glucose POC Glucose 173 H 207 H Calcium AST Total Creatine Kinase Troponin T Albumin HDL Cholesterol TSH Arterial Blood Glucose Arterial Blood Ionized Calcium Urine pH 9.0 H Urine Creatinine Acetaminophen 04/16/21 04/16/21 04/16/21 00:12 00:19 03:43 WBC Hct MCV RDW Lymph % (Auto) Seg Neutrophils % Seg Neuts % (Manual) Lymphocytes % (Manual) Monocytes % (Manual) Seg Neutrophils # Seg Neutrophils # Man Lymphocytes # (Manual) Monocytes # (Manual) ABG pH 7.461 H POC ABG pCO2 POC ABG pO2 ABG Oxyhemoglobin ABG Sodium 126.8 L ABG Potassium 5.4 H ABG Chloride 90.0 L ABG Glucose 325 H Sodium Potassium 6.7 H* Chloride BUN Creatinine Glucose POC Glucose Calcium AST Total Creatine Kinase Troponin T Albumin HDL Cholesterol TSH Arterial Blood Glucose 325 H Arterial Blood Ionized Calcium Urine pH Urine Creatinine 24.4 H Acetaminophen 04/16/21 04/16/21 04/16/21 03:55 05:02 05:02 WBC 21.2 H Hct 43.4 H MCV 98 H RDW Lymph % (Auto) Seg Neutrophils % Seg Neuts % (Manual) 84.0 H Lymphocytes % (Manual) 2.0 L Monocytes % (Manual) 10.0 H Seg Neutrophils # Seg Neutrophils # Man 17.8 H Lymphocytes # (Manual) 0.4 L Monocytes # (Manual) 2.1 H ABG pH POC ABG pCO2 POC ABG pO2 ABG Oxyhemoglobin ABG Sodium ABG Potassium ABG Chloride ABG Glucose Sodium 131 L Potassium 5.9 H Chloride 88.7 L BUN 34 H Creatinine 2.9 H Glucose 249 H POC Glucose 391 H Calcium 10.4 H AST 65 H Total Creatine Kinase Troponin T Albumin 3.8 L HDL Cholesterol TSH Arterial Blood Glucose Arterial Blood Ionized Calcium Urine pH Urine Creatinine Acetaminophen 04/16/21 04/16/21 04/16/21 11:34 16:09 18:15 WBC Hct MCV RDW Lymph % (Auto) Seg Neutrophils % Seg Neuts % (Manual) Lymphocytes % (Manual) Monocytes % (Manual) Seg Neutrophils # Seg Neutrophils # Man Lymphocytes # (Manual) Monocytes # (Manual) ABG pH POC ABG pCO2 POC ABG pO2 ABG Oxyhemoglobin ABG Sodium ABG Potassium ABG Chloride ABG Glucose Sodium Potassium Chloride BUN Creatinine Glucose POC Glucose 382 H 300 H 287 H Calcium AST Total Creatine Kinase Troponin T Albumin HDL Cholesterol TSH Arterial Blood Glucose Arterial Blood Ionized Calcium Urine pH Urine Creatinine Acetaminophen 04/16/21 04/16/21 04/16/21 19:01 19:01 23:48 WBC Hct MCV RDW Lymph % (Auto) Seg Neutrophils % Seg Neuts % (Manual) Lymphocytes % (Manual) Monocytes % (Manual) Seg Neutrophils # Seg Neutrophils # Man Lymphocytes # (Manual) Monocytes # (Manual) ABG pH POC ABG pCO2 POC ABG pO2 ABG Oxyhemoglobin ABG Sodium ABG Potassium ABG Chloride ABG Glucose Sodium 125 L Potassium 5.5 H 5.6 H Chloride 84.5 L BUN 37 H Creatinine 3.5 H Glucose 236 H POC Glucose 243 H Calcium AST Total Creatine Kinase Troponin T Albumin HDL Cholesterol TSH Arterial Blood Glucose Arterial Blood Ionized Calcium Urine pH Urine Creatinine Acetaminophen 05/18/21 05/18/21 05/18/21 03:09 05:04 06:14 WBC Hct MCV RDW Lymph % (Auto) Seg Neutrophils % Seg Neuts % (Manual) Lymphocytes % (Manual) Monocytes % (Manual) Seg Neutrophils # Seg Neutrophils # Man Lymphocytes # (Manual) Monocytes # (Manual) ABG pH 7.518 H POC ABG pCO2 POC ABG pO2 ABG Oxyhemoglobin ABG Sodium 126.4 L ABG Potassium ABG Chloride 89.0 L ABG Glucose 200 H Sodium 129 L Potassium Chloride 86.1 L BUN 39 H Creatinine 3.5 H Glucose 202 H POC Glucose 208 H Calcium AST Total Creatine Kinase 750 H Troponin T 0.119 H* D Albumin HDL Cholesterol 61 H TSH Arterial Blood Glucose 200 H Arterial Blood Ionized Calcium 4.4 L Urine pH Urine Creatinine Acetaminophen 04/17/21 11:55 WBC Hct MCV RDW Lymph % (Auto) Seg Neutrophils % Seg Neuts % (Manual) Lymphocytes % (Manual) Monocytes % (Manual) Seg Neutrophils # Seg Neutrophils # Man Lymphocytes # (Manual) Monocytes # (Manual) ABG pH POC ABG pCO2 POC ABG pO2 ABG Oxyhemoglobin ABG Sodium ABG Potassium ABG Chloride ABG Glucose Sodium Potassium Chloride BUN Creatinine Glucose POC Glucose 276 H Calcium AST Total Creatine Kinase Troponin T Albumin HDL Cholesterol TSH Arterial Blood Glucose Arterial Blood Ionized Calcium Urine pH Urine Creatinine Acetaminophen Assessment and Plan 1. Encephalopathy ( multifactorial - needs further Neurological Examination ). 2. MRI Brain when stable. 3. EEG in hospital 4. Minimize the use of Sedative . 5. Spoke with Nephew - Prognosis Guarded. Dr. Mckeon
--- NOTE | 2021-04-18 11:25 | Progress Note ---
Assessment and Plan Acute respiratory failure, on mechanical ventilatory support. Acute toxic metabolic encephalopathy Hypoglycemia ROJELIO Hyperkalemia Rhabdomyolysis Possible seizure activity DM II HTN CAD Obesity H/O breast cancer H/O TIA Leukocytosis Elevated serum TSH, possible hypothyroidism - COVID-19 PCR negative - NGT to LIS per surgery re: Ileus vas SBO - reduce set rate to 12 on MVS - discontinued hui catheter - rest on AC qhs - continue care as below otherwise; - continue to wean supplemental oxygen for target O2 sat's > 90% acutely - VAP bundle addressed - continue lung protective strategies - continue bronchodilators with pulmonary hygiene per RT - continue Daily SAT and SBT assessment as tolerated - wean per pulmonary driven protocols otherwise - continue accuchecks with glycemic control per SSI (While critically ill target blood glucose of 140-180 mg/dL; avoid hypoglycemia) - sedation prn for target RASS 0 to -1 - avoid nephrotoxins, renally dose all medications - continue to avoid benzodiazepine's, reduce the possibility of delirium - follow clinically off AB's; trend fevers / WBC - prn analgesia per CPOT score - Maintenance of sleep-wake cycle, avoid delirium - continue enteral nutritional support at goal rate as tolerated - G.I. & VTE prophylaxis - PT/OT/ROM exercises - continue mobility protocols for pressure ulcer prophylaxis - Monitor hemodynamics closely - continue other care per attending / other consultants - discharge planning ongoing concurrently .... Re-evaluate in am & prn CONDITION: CRITICAL PROGNOSIS: GUARDED CODE STATUS: FULL CODE The high probability of a clinically significant, sudden or life-threatening deterioration of the [respiratory, cardiovascular, GI & neurologic] system(s) required my full and direct attention, intervention and personal management. The aggregate critical care time was [31] minutes without overlap. Time includes spent on; [x] Data Review and interpretation [x] Patient assessment and monitoring of vital signs [x] Documentation [x] Medication orders and management Subjective Date of service: 04/17/21 Principal diagnosis: Ac. resp failure; AMS; Hypoglycemia; ROJELIO; Hyperkalemia; DM II Interval history: Patient is seen today for: Acute respiratory failure; AMS; Hypoglycemia; ROJELIO; Hyperkalemia; DM II; H/O breast cancer; Elevated serum TSH, possible hypothyroidism Seen and examined at bedside; 24hour events reviewed; nursing and respiratory care staff consulted; no adverse overnight events reported to me; resting peacefully in bed; on SBT via PSV and tolerating well; no emesis or overt aspiration; more alert but not following commands Objective Vital Signs - 12hr 04/17/21 04/17/21 04/17/21 01:01 01:11 01:21 Temperature Pulse Rate 103 H 105 H 105 H Pulse Rate [ From Monitor] Respiratory 13 18 25 H Rate Blood Pressure 153/66 153/66 153/66 O2 Sat by Pulse 98 97 98 Oximetry 04/17/21 04/17/21 04/17/21 01:31 01:41 01:51 Temperature Pulse Rate 106 H 108 H 100 H Pulse Rate [ From Monitor] Respiratory 13 18 20 Rate Blood Pressure 157/70 157/70 158/61 O2 Sat by Pulse 98 99 99 Oximetry 04/17/21 04/17/21 04/17/21 02:01 02:11 02:21 Temperature Pulse Rate 102 H 100 H 97 H Pulse Rate [ From Monitor] Respiratory 18 22 19 Rate Blood Pressure 145/63 145/63 152/63 O2 Sat by Pulse 99 100 99 Oximetry 04/17/21 04/17/21 04/17/21 02:31 02:40 02:51 Temperature Pulse Rate 97 H 96 H 96 H Pulse Rate [ From Monitor] Respiratory 18 15 21 Rate Blood Pressure 135/61 135/61 141/75 O2 Sat by Pulse 99 99 100 Oximetry 04/17/21 04/17/21 04/17/21 03:01 03:11 03:21 Temperature Pulse Rate 108 H 103 H 106 H Pulse Rate [ From Monitor] Respiratory 13 24 12 Rate Blood Pressure 128/74 128/74 144/66 O2 Sat by Pulse 100 99 99 Oximetry 04/17/21 04/17/21 04/17/21 03:31 03:41 03:51 Temperature Pulse Rate 105 H 105 H 104 H Pulse Rate [ From Monitor] Respiratory 14 19 11 L Rate Blood Pressure 137/69 137/69 139/70 O2 Sat by Pulse 99 99 99 Oximetry 04/17/21 04/17/21 04/17/21 04:00 04:01 04:11 Temperature 98.2 F Pulse Rate 101 H 108 H 106 H Pulse Rate [ 101 H From Monitor] Respiratory 16 21 15 Rate Blood Pressure 139/70 139/70 O2 Sat by Pulse 99 99 99 Oximetry 04/17/21 04/17/21 04/17/21 04:13 04:21 04:31 Temperature Pulse Rate 110 H 109 H 102 H Pulse Rate [ From Monitor] Respiratory 8 L 19 Rate Blood Pressure 188/82 188/82 188/82 O2 Sat by Pulse 99 98 Oximetry 04/17/21 04/17/21 04/17/21 04:41 04:51 05:01 Temperature Pulse Rate 110 H 108 H 107 H Pulse Rate [ From Monitor] Respiratory 12 19 21 Rate Blood Pressure 188/82 188/82 135/78 O2 Sat by Pulse 99 Oximetry 04/17/21 04/17/21 04/17/21 05:11 05:21 05:31 Temperature Pulse Rate 107 H 112 H 103 H Pulse Rate [ From Monitor] Respiratory 25 H 18 19 Rate Blood Pressure 135/78 93/63 74/39 O2 Sat by Pulse 99 100 99 Oximetry 04/17/21 04/17/21 04/17/21 05:41 05:51 06:01 Temperature Pulse Rate 107 H 108 H 100 H Pulse Rate [ From Monitor] Respiratory 17 17 22 Rate Blood Pressure 74/39 103/76 103/76 O2 Sat by Pulse 99 99 100 Oximetry 04/17/21 04/17/21 04/17/21 06:11 06:21 06:31 Temperature Pulse Rate 110 H 108 H 110 H Pulse Rate [ From Monitor] Respiratory 15 20 17 Rate Blood Pressure 143/51 134/60 134/60 O2 Sat by Pulse 99 100 99 Oximetry 04/17/21 04/17/21 04/17/21 06:41 06:51 07:00 Temperature Pulse Rate 117 H 109 H 113 H Pulse Rate [ From Monitor] Respiratory 20 12 15 Rate Blood Pressure 134/62 139/97 98/62 O2 Sat by Pulse 99 99 99 Oximetry 04/17/21 04/17/21 04/17/21 07:11 07:21 07:31 Temperature Pulse Rate 108 H 112 H 108 H Pulse Rate [ From Monitor] Respiratory 16 17 26 H Rate Blood Pressure 98/62 110/59 110/59 O2 Sat by Pulse 99 99 99 Oximetry 04/17/21 04/17/21 04/17/21 07:41 07:51 08:00 Temperature Pulse Rate 109 H 118 H 105 H Pulse Rate [ From Monitor] Respiratory 17 16 16 Rate Blood Pressure 164/83 144/81 124/65 O2 Sat by Pulse 99 99 99 Oximetry 04/17/21 04/17/21 04/17/21 08:11 08:21 08:30 Temperature Pulse Rate 105 H 108 H 101 H Pulse Rate [ From Monitor] Respiratory 15 18 16 Rate Blood Pressure 124/65 147/122 139/84 O2 Sat by Pulse 99 100 100 Oximetry 04/17/21 04/17/21 04/17/21 08:36 08:41 08:42 Temperature 100.8 F H Pulse Rate 102 H 96 H Pulse Rate [ From Monitor] Respiratory 16 Rate Blood Pressure 139/84 139/84 O2 Sat by Pulse 100 100 Oximetry 04/17/21 04/17/21 04/17/21 08:51 09:01 09:11 Temperature Pulse Rate 95 H 97 H 105 H Pulse Rate [ From Monitor] Respiratory 16 14 23 Rate Blood Pressure 117/68 117/68 156/83 O2 Sat by Pulse 100 100 100 Oximetry 04/17/21 04/17/21 04/17/21 09:12 09:21 09:23 Temperature Pulse Rate 102 H 102 H 106 H Pulse Rate [ From Monitor] Respiratory 25 H Rate Blood Pressure 156/83 151/80 151/80 O2 Sat by Pulse 100 100 Oximetry 04/17/21 04/17/21 04/17/21 09:31 09:41 09:51 Temperature Pulse Rate 111 H 108 H 107 H Pulse Rate [ From Monitor] Respiratory 17 25 H 20 Rate Blood Pressure 151/80 170/83 168/79 O2 Sat by Pulse 99 98 97 Oximetry 04/17/21 04/17/21 04/17/21 10:01 10:11 10:21 Temperature Pulse Rate 105 H 112 H 99 H Pulse Rate [ From Monitor] Respiratory 26 H 24 26 H Rate Blood Pressure 173/89 173/89 163/68 O2 Sat by Pulse 99 99 100 Oximetry 04/17/21 04/17/21 04/17/21 10:30 10:41 10:51 Temperature Pulse Rate 97 H 97 H 97 H Pulse Rate [ From Monitor] Respiratory 25 H 24 24 Rate Blood Pressure 171/68 171/68 179/64 O2 Sat by Pulse 100 100 99 Oximetry 04/17/21 04/17/21 04/17/21 11:01 11:11 11:21 Temperature Pulse Rate 96 H 101 H 114 H Pulse Rate [ From Monitor] Respiratory 23 16 18 Rate Blood Pressure 144/61 O2 Sat by Pulse 99 99 99 Oximetry 04/17/21 04/17/21 04/17/21 11:31 11:41 11:51 Temperature Pulse Rate 100 H 106 H 105 H Pulse Rate [ From Monitor] Respiratory 22 19 29 H Rate Blood Pressure 134/91 134/91 119/43 O2 Sat by Pulse 100 99 99 Oximetry 04/17/21 04/17/21 04/17/21 12:00 12:01 12:11 Temperature 99 F Pulse Rate 102 H 100 H Pulse Rate [ From Monitor] Respiratory 15 21 Rate Blood Pressure 113/45 113/45 O2 Sat by Pulse 98 97 Oximetry CBC and BMP: 04/16/21 05:02 04/17/21 05:04 ABG, PT/INR, D-dimer: ABG ABG pH 7.518 (7.320-7.450) H 04/17/21 03:09 POC ABG pCO2 32.9 mmHg (32.0-48.0) 04/17/21 03:09 POC ABG pO2 88.3 mmHg (83-108) 04/17/21 03:09 POC ABG HCO3 26.1 04/17/21 03:09 ABG O2 Saturation 97.2 (0-100) 04/17/21 03:09 PT/INR, D-dimer PT 12.2 Sec. (12.2-14.9) 04/15/21 17:20 INR 0.91 (0.87-1.13) 04/15/21 17:20 Abnormal lab findings: Abnormal Labs 04/15/21 04/15/21 04/15/21 17:20 17:20 17:20 WBC 11.2 H Hct 43.0 H MCV RDW 15.3 H Lymph % (Auto) 12.8 L Seg Neutrophils % 82.4 H Seg Neuts % (Manual) Lymphocytes % (Manual) Monocytes % (Manual) Seg Neutrophils # 9.3 H Seg Neutrophils # Man Lymphocytes # (Manual) Monocytes # (Manual) ABG pH POC ABG pCO2 POC ABG pO2 ABG Oxyhemoglobin ABG Sodium ABG Potassium ABG Chloride ABG Glucose Sodium 129 L Potassium 7.1 H* Chloride 91.9 L BUN 35 H Creatinine 2.8 H Glucose POC Glucose Calcium AST 69 H Total Creatine Kinase 1000 H Troponin T Albumin HDL Cholesterol TSH Arterial Blood Glucose Arterial Blood Ionized Calcium Urine pH Urine Creatinine Acetaminophen 04/15/21 04/15/21 04/15/21 17:20 17:20 20:49 WBC Hct MCV RDW Lymph % (Auto) Seg Neutrophils % Seg Neuts % (Manual) Lymphocytes % (Manual) Monocytes % (Manual) Seg Neutrophils # Seg Neutrophils # Man Lymphocytes # (Manual) Monocytes # (Manual) ABG pH 7.557 H POC ABG pCO2 30.0 L POC ABG pO2 493.3 H ABG Oxyhemoglobin 99.0 H ABG Sodium 131.5 L ABG Potassium 4.7 H ABG Chloride 94.0 L ABG Glucose 218 H Sodium Potassium Chloride BUN Creatinine Glucose POC Glucose Calcium AST Total Creatine Kinase Troponin T Albumin HDL Cholesterol TSH 14.190 H Arterial Blood Glucose 218 H Arterial Blood Ionized Calcium 5.4 H Urine pH Urine Creatinine Acetaminophen 5.0 L 04/15/21 04/15/21 04/16/21 21:23 23:15 00:09 WBC Hct MCV RDW Lymph % (Auto) Seg Neutrophils % Seg Neuts % (Manual) Lymphocytes % (Manual) Monocytes % (Manual) Seg Neutrophils # Seg Neutrophils # Man Lymphocytes # (Manual) Monocytes # (Manual) ABG pH POC ABG pCO2 POC ABG pO2 ABG Oxyhemoglobin ABG Sodium ABG Potassium ABG Chloride ABG Glucose Sodium Potassium Chloride BUN Creatinine Glucose POC Glucose 173 H 207 H Calcium AST Total Creatine Kinase Troponin T Albumin HDL Cholesterol TSH Arterial Blood Glucose Arterial Blood Ionized Calcium Urine pH 9.0 H Urine Creatinine Acetaminophen 04/16/21 04/16/21 04/16/21 00:12 00:19 03:43 WBC Hct MCV RDW Lymph % (Auto) Seg Neutrophils % Seg Neuts % (Manual) Lymphocytes % (Manual) Monocytes % (Manual) Seg Neutrophils # Seg Neutrophils # Man Lymphocytes # (Manual) Monocytes # (Manual) ABG pH 7.461 H POC ABG pCO2 POC ABG pO2 ABG Oxyhemoglobin ABG Sodium 126.8 L ABG Potassium 5.4 H ABG Chloride 90.0 L ABG Glucose 325 H Sodium Potassium 6.7 H* Chloride BUN Creatinine Glucose POC Glucose Calcium AST Total Creatine Kinase Troponin T Albumin HDL Cholesterol TSH Arterial Blood Glucose 325 H Arterial Blood Ionized Calcium Urine pH Urine Creatinine 24.4 H Acetaminophen 04/16/21 04/16/21 04/16/21 03:55 05:02 05:02 WBC 21.2 H Hct 43.4 H MCV 98 H RDW Lymph % (Auto) Seg Neutrophils % Seg Neuts % (Manual) 84.0 H Lymphocytes % (Manual) 2.0 L Monocytes % (Manual) 10.0 H Seg Neutrophils # Seg Neutrophils # Man 17.8 H Lymphocytes # (Manual) 0.4 L Monocytes # (Manual) 2.1 H ABG pH POC ABG pCO2 POC ABG pO2 ABG Oxyhemoglobin ABG Sodium ABG Potassium ABG Chloride ABG Glucose Sodium 131 L Potassium 5.9 H Chloride 88.7 L BUN 34 H Creatinine 2.9 H Glucose 249 H POC Glucose 391 H Calcium 10.4 H AST 65 H Total Creatine Kinase Troponin T Albumin 3.8 L HDL Cholesterol TSH Arterial Blood Glucose Arterial Blood Ionized Calcium Urine pH Urine Creatinine Acetaminophen 04/16/21 04/16/21 04/16/21 11:34 16:09 18:15 WBC Hct MCV RDW Lymph % (Auto) Seg Neutrophils % Seg Neuts % (Manual) Lymphocytes % (Manual) Monocytes % (Manual) Seg Neutrophils # Seg Neutrophils # Man Lymphocytes # (Manual) Monocytes # (Manual) ABG pH POC ABG pCO2 POC ABG pO2 ABG Oxyhemoglobin ABG Sodium ABG Potassium ABG Chloride ABG Glucose Sodium Potassium Chloride BUN Creatinine Glucose POC Glucose 382 H 300 H 287 H Calcium AST Total Creatine Kinase Troponin T Albumin HDL Cholesterol TSH Arterial Blood Glucose Arterial Blood Ionized Calcium Urine pH Urine Creatinine Acetaminophen 04/16/21 04/16/21 04/16/21 19:01 19:01 23:48 WBC Hct MCV RDW Lymph % (Auto) Seg Neutrophils % Seg Neuts % (Manual) Lymphocytes % (Manual) Monocytes % (Manual) Seg Neutrophils # Seg Neutrophils # Man Lymphocytes # (Manual) Monocytes # (Manual) ABG pH POC ABG pCO2 POC ABG pO2 ABG Oxyhemoglobin ABG Sodium ABG Potassium ABG Chloride ABG Glucose Sodium 125 L Potassium 5.5 H 5.6 H Chloride 84.5 L BUN 37 H Creatinine 3.5 H Glucose 236 H POC Glucose 243 H Calcium AST Total Creatine Kinase Troponin T Albumin HDL Cholesterol TSH Arterial Blood Glucose Arterial Blood Ionized Calcium Urine pH Urine Creatinine Acetaminophen 04/17/21 04/17/21 04/17/21 03:09 05:04 06:14 WBC Hct MCV RDW Lymph % (Auto) Seg Neutrophils % Seg Neuts % (Manual) Lymphocytes % (Manual) Monocytes % (Manual) Seg Neutrophils # Seg Neutrophils # Man Lymphocytes # (Manual) Monocytes # (Manual) ABG pH 7.518 H POC ABG pCO2 POC ABG pO2 ABG Oxyhemoglobin ABG Sodium 126.4 L ABG Potassium ABG Chloride 89.0 L ABG Glucose 200 H Sodium 129 L Potassium Chloride 86.1 L BUN 39 H Creatinine 3.5 H Glucose 202 H POC Glucose 208 H Calcium AST Total Creatine Kinase 750 H Troponin T 0.119 H* D Albumin HDL Cholesterol 61 H TSH Arterial Blood Glucose 200 H Arterial Blood Ionized Calcium 4.4 L Urine pH Urine Creatinine Acetaminophen 04/17/21 11:55 WBC Hct MCV RDW Lymph % (Auto) Seg Neutrophils % Seg Neuts % (Manual) Lymphocytes % (Manual) Monocytes % (Manual) Seg Neutrophils # Seg Neutrophils # Man Lymphocytes # (Manual) Monocytes # (Manual) ABG pH POC ABG pCO2 POC ABG pO2 ABG Oxyhemoglobin ABG Sodium ABG Potassium ABG Chloride ABG Glucose Sodium Potassium Chloride BUN Creatinine Glucose POC Glucose 276 H Calcium AST Total Creatine Kinase Troponin T Albumin HDL Cholesterol TSH Arterial Blood Glucose Arterial Blood Ionized Calcium Urine pH Urine Creatinine Acetaminophen
--- NOTE | 2021-04-18 11:52 | Progress Note ---
Assessment and Plan 1. Acute kidney injury: Likely vasomotor ROJELIO. ATN likely. Renal US ordered. Baseline renal function is unknown. Monitor renal function. Non-oliguric. Creatinine level is slightly better today. Renal prognosis is guarded. Avoid nephrotoxic agents. Meds dosage based on GFR. 2. FEN: Hypokalemia, replete K, monitor. Hyponatremia, monitor. Salt tablets. Monitor lytes and volume status. 3. Acute hypoxemic respiratory failure: Currently intubated, on vent. 4. Acute encephalopathy: Hypoglycemia. MRI brain negative. 5. Leukocytosis. 6. Hypertension. 7. DM type 2. 8. Mild rhabdomyolysis. Subjective: Patient was not examined today. However the examination findings from other providers noted. The current and previous medical records are reviewed in detail as are laboratory and imaging data reviewed when appropriate. Medications being given are also reviewed. In addition the case has been discussed with the attending hospitalist and the nurse when needed. New renal recommendations as above. Subjective Date of service: 04/18/21 Principal diagnosis: Ac. resp failure; AMS; Hypoglycemia; ROJELIO; Hyperkalemia; DM II Objective - Vital Signs Vital signs: Vital Signs - 12hr 04/18/21 04/18/21 04/18/21 00:00 00:11 00:21 Temperature 100.4 F H Pulse Rate 76 85 76 Pulse Rate [ 94 H From Monitor] Respiratory 15 14 13 Rate Blood Pressure 144/63 144/63 127/61 O2 Sat by Pulse 98 99 99 Oximetry 04/18/21 04/18/21 04/18/21 00:30 00:40 00:41 Temperature Pulse Rate 75 82 102 H Pulse Rate [ From Monitor] Respiratory 16 22 Rate Blood Pressure 127/61 142/58 142/58 O2 Sat by Pulse 99 100 99 Oximetry 04/18/21 04/18/21 04/18/21 00:50 01:00 01:10 Temperature Pulse Rate 85 83 76 Pulse Rate [ From Monitor] Respiratory 16 17 15 Rate Blood Pressure 139/57 139/57 151/66 O2 Sat by Pulse 98 98 98 Oximetry 04/18/21 04/18/21 04/18/21 01:20 01:30 01:41 Temperature Pulse Rate 86 89 79 Pulse Rate [ From Monitor] Respiratory 18 13 13 Rate Blood Pressure 150/102 150/102 142/58 O2 Sat by Pulse 99 98 99 Oximetry 04/18/21 04/18/21 04/18/21 01:51 02:01 02:11 Temperature Pulse Rate 85 77 83 Pulse Rate [ From Monitor] Respiratory 11 L 14 15 Rate Blood Pressure 123/62 163/56 163/56 O2 Sat by Pulse 99 99 98 Oximetry 04/18/21 04/18/21 04/18/21 02:21 02:30 02:41 Temperature Pulse Rate 83 86 91 H Pulse Rate [ From Monitor] Respiratory 17 17 25 H Rate Blood Pressure 152/56 145/92 145/92 O2 Sat by Pulse 99 99 99 Oximetry 04/18/21 04/18/21 04/18/21 02:51 03:01 03:11 Temperature Pulse Rate 85 81 84 Pulse Rate [ From Monitor] Respiratory 13 13 15 Rate Blood Pressure 155/85 143/52 143/52 O2 Sat by Pulse 98 98 99 Oximetry 04/18/21 04/18/21 04/18/21 03:21 03:31 03:41 Temperature Pulse Rate 85 87 81 Pulse Rate [ From Monitor] Respiratory 10 L 18 14 Rate Blood Pressure 79/40 120/82 132/75 O2 Sat by Pulse 99 98 98 Oximetry 04/18/21 04/18/21 04/18/21 03:51 04:00 04:11 Temperature 100.0 F H Pulse Rate 77 92 H 90 Pulse Rate [ 99 H From Monitor] Respiratory 18 17 13 Rate Blood Pressure 150/65 112/63 112/63 O2 Sat by Pulse 99 99 99 Oximetry 04/18/21 04/18/21 04/18/21 04:21 04:31 04:41 Temperature Pulse Rate 88 89 105 H Pulse Rate [ From Monitor] Respiratory 15 13 19 Rate Blood Pressure 101/49 151/55 151/55 O2 Sat by Pulse 99 98 98 Oximetry 04/18/21 04/18/21 04/18/21 04:51 05:01 05:11 Temperature Pulse Rate 87 87 85 Pulse Rate [ From Monitor] Respiratory 10 L 12 16 Rate Blood Pressure 101/49 145/67 145/67 O2 Sat by Pulse 99 98 98 Oximetry 04/18/21 04/18/21 04/18/21 05:21 05:30 05:41 Temperature Pulse Rate 81 86 79 Pulse Rate [ From Monitor] Respiratory 12 14 16 Rate Blood Pressure 151/52 152/62 152/62 O2 Sat by Pulse 99 99 99 Oximetry 04/18/21 04/18/21 04/18/21 05:51 06:00 06:11 Temperature Pulse Rate 93 H 92 H 86 Pulse Rate [ From Monitor] Respiratory 14 10 L 11 L Rate Blood Pressure 135/55 135/55 O2 Sat by Pulse 100 99 99 Oximetry 04/18/21 04/18/21 04/18/21 06:21 06:31 06:41 Temperature Pulse Rate 93 H 88 78 Pulse Rate [ From Monitor] Respiratory 12 18 Rate Blood Pressure 134/45 142/55 142/55 O2 Sat by Pulse 99 100 98 Oximetry 04/18/21 04/18/21 04/18/21 06:51 07:01 07:11 Temperature Pulse Rate 91 H 83 82 Pulse Rate [ From Monitor] Respiratory Rate Blood Pressure 142/62 118/53 118/53 O2 Sat by Pulse 100 99 97 Oximetry 04/18/21 04/18/21 04/18/21 07:21 07:25 07:31 Temperature 100.2 F H Pulse Rate 88 86 Pulse Rate [ From Monitor] Respiratory Rate Blood Pressure 125/57 125/57 O2 Sat by Pulse 100 98 Oximetry 04/18/21 04/18/21 04/18/21 07:41 07:51 08:00 Temperature Pulse Rate 83 82 86 Pulse Rate [ From Monitor] Respiratory Rate Blood Pressure 103/75 120/72 139/61 O2 Sat by Pulse 100 99 100 Oximetry 04/18/21 04/18/21 04/18/21 08:11 08:21 08:30 Temperature Pulse Rate 80 88 82 Pulse Rate [ From Monitor] Respiratory Rate Blood Pressure 139/61 140/70 142/64 O2 Sat by Pulse 100 100 99 Oximetry 04/18/21 04/18/21 04/18/21 08:41 08:51 08:53 Temperature Pulse Rate 84 79 86 Pulse Rate [ From Monitor] Respiratory 10 L 13 Rate Blood Pressure 142/64 142/64 O2 Sat by Pulse 99 99 100 Oximetry 04/18/21 04/18/21 04/18/21 09:00 09:11 09:21 Temperature Pulse Rate 100 H 85 78 Pulse Rate [ From Monitor] Respiratory 12 12 12 Rate Blood Pressure 125/69 125/69 126/66 O2 Sat by Pulse 98 98 97 Oximetry 04/18/21 04/18/21 04/18/21 09:31 09:41 09:51 Temperature Pulse Rate 91 H 88 84 Pulse Rate [ From Monitor] Respiratory 18 17 13 Rate Blood Pressure 108/60 108/60 149/60 O2 Sat by Pulse 99 99 99 Oximetry 04/18/21 04/18/21 04/18/21 10:01 10:10 10:21 Temperature Pulse Rate 89 81 85 Pulse Rate [ From Monitor] Respiratory 21 14 18 Rate Blood Pressure 118/56 118/56 133/58 O2 Sat by Pulse 99 98 99 Oximetry 04/18/21 04/18/21 10:31 11:03 Temperature Pulse Rate 98 H 90 Pulse Rate [ From Monitor] Respiratory 15 25 H Rate Blood Pressure 161/75 119/84 O2 Sat by Pulse 100 99 Oximetry - Lab 04/18/21 05:34 04/18/21 05:34 Most recent lab results ABG pH 7.497 (7.320-7.450) H 04/18/21 03:00 ABG O2 Saturation 95.9 (0-100) 04/18/21 03:00 Calcium 8.5 mg/dL (8.4-10.2) 04/18/21 05:34 Magnesium 1.40 mg/dL (1.7-2.3) L 04/18/21 05:43 Urine Creatinine 24.4 mg/dL (0.1-20.0) H 04/16/21 00:12 Urine Sodium 97 mmol/L 04/16/21 00:12 Medications & Allergies - Medications Allergies/Adverse Reactions: Allergies No Known Allergies Allergy (Unverified 04/15/21 17:41) Home Medications: Home Medications Medication Instructions Recorded Confirmed Last Taken Type Betaxolol HCl [Betoptic S 0.25% 1 drop OU BID 04/16/21 04/16/21 Unknown History SUSP] Bimatoprost [Lumigan 0.01%] 1 drop OU QPM 04/16/21 04/16/21 Unknown History Brimonidine Tartrate [Brimonidine 5 ml OU BID 04/16/21 04/16/21 Unknown History Tartrate 0.2%] Furosemide [Lasix TAB] 40 mg PO QDAY 04/16/21 04/16/21 Unknown History Gabapentin [Neurontin] 300 mg PO Q8HR 04/16/21 04/16/21 Unknown History HYDROcodone/APAP 10-325 [Racine 1 each PO Q6HR PRN 04/16/21 04/16/21 Unknown History 10/325] Hydralazine HCl 50 mg PO Q4HR 04/16/21 04/16/21 Unknown History Insulin Aspart Prot/Insuln Asp 52 units SQ HS 04/16/21 04/16/21 Unknown History [Novolog Mix 70-30 Flexpen] Metoprolol [Lopressor] 25 mg PO BID 04/16/21 04/16/21 Unknown History Pravastatin [Pravachol] 20 mg PO QHS 04/16/21 04/16/21 Unknown History Promethazine [Phenergan] 25 mg PO Q6HR 04/16/21 04/16/21 Unknown History allopurinoL [Zyloprim] 150 mg PO QDAY 04/16/21 04/16/21 Unknown History Active Medications: Generic Name Dose Route Start Last Admin Trade Name Freq PRN Reason Stop Dose Admin Acetaminophen 650 mg 04/15/21 19:11 04/17/21 22:13 Acetaminophen 325 Mg Tab PO 650 mg Q6H PRN Administration Pain MILD(1-3)/Fever >100.5/SEXTON Lipase/Protease/Amylase 1 each 04/16/21 12:52 Lipase 10,500/Protease 25,000/Amylase 43,750 (Units) Dr Simpson FEEDTUBE PRN PRN For Clogged Feeding Tube Bisacodyl 10 mg 04/17/21 11:01 04/17/21 13:46 Bisacodyl 10 Mg Rect Supp TN 10 mg QDAY PRN Administration Constipation Brimonidine Tartrate 1 drops 04/17/21 22:00 04/18/21 10:57 Brimonidine 0.15% Ophth Soln OU 1 drops BID WOLFGANG Administration Famotidine 20 mg 04/17/21 10:00 04/18/21 10:57 Famotidine 20 Mg Tab PO 20 mg DAILY WOLFGANG Administration Heparin Sodium (Porcine) 5,000 unit 04/15/21 22:00 04/18/21 10:56 Heparin 5,000 Unit/1 Ml Vial SUB-Q 5,000 unit Q12HR WOLFGANG Administration Hydralazine HCl 10 mg 04/16/21 18:00 04/17/21 10:51 Hydralazine 20 Mg/1 Ml Inj IV 10 mg Q4HR PRN Administration Hypertension Hydrophilic Ointment 1 applic 04/15/21 17:24 Lip Therapy Vaseline TP Q2HR PRN Dry Lips Propofol 1,000 mg in 100 mls @ 2.91 mls/hr 04/15/21 18:00 04/18/21 10:41 Diprivan 10 Mg/Ml IV 0 mcg/kg/min TITR WOLFGANG 0 mls/hr Titration Protocol 5 MCG/KG/MIN Dextrose/Sodium Chloride 1,000 mls @ 50 mls/hr 04/16/21 21:00 04/17/21 17:53 D5ns IV 50 mls/hr DIRECT WOLFGANG Administration Potassium Chloride 10 meq in 100 mls @ 100 mls/hr 04/18/21 09:00 04/18/21 10:41 Kcl 10meq/100ml IV 04/18/21 12:59 100 mls/hr Q1H WOLFGANG Administration Insulin Human Lispro 0 unit 04/16/21 15:00 04/18/21 05:44 Insulin Lispro 100 Unit/Ml SUB-Q 3 unit Q6HR WOLFGANG Administration Protocol Latanoprost 1 drops 04/17/21 18:00 04/17/21 17:53 Latanoprost 0.005% Ophth Soln 2.5 Ml OU 1 drops QPM WOLFGANG Administration Metoprolol Tartrate 12.5 mg 04/17/21 10:00 04/18/21 10:56 Metoprolol Tartrate 25 Mg Tab PO 12.5 mg BID WOLFGANG Administration Miscellaneous Medication 1 drop 04/17/21 22:00 Betaxolol Hcl [Betoptic S 0.25% Susp] OP BID WOLFGANG Multi-Ingred Cream/Lotion/Oil/Oint 1 applic 04/15/21 17:24 04/16/21 11:19 Mineral Oil/Petrolatum, White Ophth Oint 3.5 Gm OU 1 applic Q4HR PRN Administration Dry Eye(s) Simple Syrup 15 ml 04/16/21 12:52 Simple Syrup 15 Ml FEEDTUBE PRN PRN Hypoglycemia Simple Syrup 30 ml 04/16/21 12:52 Simple Syrup 15 Ml FEEDTUBE PRN PRN Hypoglycemia Sodium Bicarbonate 325 mg 04/16/21 12:52 Sodium Bicarbonate 325 Mg Tab FEEDTUBE PRN PRN For Clogged Feeding Tube Sodium Chloride 10 ml 04/15/21 22:00 04/18/21 10:53 Sodium Chloride 0.9% 10 Ml Flush Syringe IV 10 ml BID WOLFGANG Administration Sodium Chloride 10 ml 04/15/21 19:11 Sodium Chloride 0.9% 10 Ml Flush Syringe IV PRN PRN LINE FLUSH
--- NOTE | 2021-04-18 12:13 | Progress Note ---
Assessment and Plan Acute respiratory failure, on mechanical ventilatory support. Acute toxic metabolic encephalopathy Hypoglycemia ROJELIO Hyperkalemia Rhabdomyolysis Possible seizure activity DM II HTN CAD Obesity H/O breast cancer H/O TIA Leukocytosis Elevated serum TSH, possible hypothyroidism - continue NGT to LIS per surgery re: Ileus vas SBO - reduce set rate to 10 on MVS - begin Provigil re: lethargy / encephalopathy - follow EEG & MRI - rest on AC qhs - continue care as below otherwise; - continue to wean supplemental oxygen for target O2 sat's > 90% acutely - VAP bundle addressed - continue lung protective strategies - continue bronchodilators with pulmonary hygiene per RT - continue Daily SAT and SBT assessment as tolerated - wean per pulmonary driven protocols otherwise - continue accuchecks with glycemic control per SSI (While critically ill target blood glucose of 140-180 mg/dL; avoid hypoglycemia) - sedation prn for target RASS 0 to -1 - avoid nephrotoxins, renally dose all medications - continue to avoid benzodiazepine's, reduce the possibility of delirium - follow clinically off AB's; trend fevers / WBC - prn analgesia per CPOT score - Maintenance of sleep-wake cycle, avoid delirium - continue enteral nutritional support at goal rate as tolerated - G.I. & VTE prophylaxis - PT/OT/ROM exercises - continue mobility protocols for pressure ulcer prophylaxis - Monitor hemodynamics closely - continue other care per attending / other consultants - discharge planning ongoing concurrently .... Re-evaluate in am & prn CONDITION: CRITICAL PROGNOSIS: GUARDED CODE STATUS: FULL CODE The high probability of a clinically significant, sudden or life-threatening deterioration of the [respiratory, cardiovascular, GI & neurologic] system(s) required my full and direct attention, intervention and personal management. The aggregate critical care time was [33] minutes without overlap. Time includes spent on; [x] Data Review and interpretation [x] Patient assessment and monitoring of vital signs [x] Documentation [x] Medication orders and management Subjective Date of service: 04/18/21 Principal diagnosis: Ac. resp failure; AMS; Hypoglycemia; ROJELIO; Hyperkalemia; DM II Interval history: Patient is seen today for: Acute respiratory failure; AMS; Hypoglycemia; ROJELIO; Hyperkalemia; DM II; H/O breast cancer; Elevated serum TSH, possible hypothyroidism Seen and examined at bedside; 24hour events reviewed; nursing and respiratory care staff consulted; no adverse overnight events reported to me; resting peacefully in bed; AMS is persistent; on PSV trial and tolerating well; + low grade fevers; seen by neurologist and EEG, MRI ordered; no emesis or overt aspiration Objective Vital Signs - 12hr 04/17/21 04/17/21 04/17/21 23:30 23:41 23:51 Temperature Pulse Rate 90 74 79 Pulse Rate [ From Monitor] Respiratory 14 14 13 Rate Blood Pressure 140/64 140/64 153/63 O2 Sat by Pulse 98 99 99 Oximetry 04/18/21 04/18/21 04/18/21 00:00 00:11 00:21 Temperature 100.4 F H Pulse Rate 76 85 76 Pulse Rate [ 94 H From Monitor] Respiratory 15 14 13 Rate Blood Pressure 144/63 144/63 127/61 O2 Sat by Pulse 98 99 99 Oximetry 04/18/21 04/18/21 04/18/21 00:30 00:40 00:41 Temperature Pulse Rate 75 82 102 H Pulse Rate [ From Monitor] Respiratory 16 22 Rate Blood Pressure 127/61 142/58 142/58 O2 Sat by Pulse 99 100 99 Oximetry 04/18/21 04/18/21 04/18/21 00:50 01:00 01:10 Temperature Pulse Rate 85 83 76 Pulse Rate [ From Monitor] Respiratory 16 17 15 Rate Blood Pressure 139/57 139/57 151/66 O2 Sat by Pulse 98 98 98 Oximetry 04/18/21 04/18/21 04/18/21 01:20 01:30 01:41 Temperature Pulse Rate 86 89 79 Pulse Rate [ From Monitor] Respiratory 18 13 13 Rate Blood Pressure 150/102 150/102 142/58 O2 Sat by Pulse 99 98 99 Oximetry 04/18/21 04/18/21 04/18/21 01:51 02:01 02:11 Temperature Pulse Rate 85 77 83 Pulse Rate [ From Monitor] Respiratory 11 L 14 15 Rate Blood Pressure 123/62 163/56 163/56 O2 Sat by Pulse 99 99 98 Oximetry 04/18/21 04/18/21 04/18/21 02:21 02:30 02:41 Temperature Pulse Rate 83 86 91 H Pulse Rate [ From Monitor] Respiratory 17 17 25 H Rate Blood Pressure 152/56 145/92 145/92 O2 Sat by Pulse 99 99 99 Oximetry 04/18/21 04/18/21 04/18/21 02:51 03:01 03:11 Temperature Pulse Rate 85 81 84 Pulse Rate [ From Monitor] Respiratory 13 13 15 Rate Blood Pressure 155/85 143/52 143/52 O2 Sat by Pulse 98 98 99 Oximetry 04/18/21 04/18/21 04/18/21 03:21 03:31 03:41 Temperature Pulse Rate 85 87 81 Pulse Rate [ From Monitor] Respiratory 10 L 18 14 Rate Blood Pressure 79/40 120/82 132/75 O2 Sat by Pulse 99 98 98 Oximetry 04/18/21 04/18/21 04/18/21 03:51 04:00 04:11 Temperature 100.0 F H Pulse Rate 77 92 H 90 Pulse Rate [ 99 H From Monitor] Respiratory 18 17 13 Rate Blood Pressure 150/65 112/63 112/63 O2 Sat by Pulse 99 99 99 Oximetry 04/18/21 04/18/21 04/18/21 04:21 04:31 04:41 Temperature Pulse Rate 88 89 105 H Pulse Rate [ From Monitor] Respiratory 15 13 19 Rate Blood Pressure 101/49 151/55 151/55 O2 Sat by Pulse 99 98 98 Oximetry 04/18/21 04/18/21 04/18/21 04:51 05:01 05:11 Temperature Pulse Rate 87 87 85 Pulse Rate [ From Monitor] Respiratory 10 L 12 16 Rate Blood Pressure 101/49 145/67 145/67 O2 Sat by Pulse 99 98 98 Oximetry 04/18/21 04/18/21 04/18/21 05:21 05:30 05:41 Temperature Pulse Rate 81 86 79 Pulse Rate [ From Monitor] Respiratory 12 14 16 Rate Blood Pressure 151/52 152/62 152/62 O2 Sat by Pulse 99 99 99 Oximetry 04/18/21 04/18/21 04/18/21 05:51 06:00 06:11 Temperature Pulse Rate 93 H 92 H 86 Pulse Rate [ From Monitor] Respiratory 14 10 L 11 L Rate Blood Pressure 135/55 135/55 O2 Sat by Pulse 100 99 99 Oximetry 04/18/21 04/18/21 04/18/21 06:21 06:31 06:41 Temperature Pulse Rate 93 H 88 78 Pulse Rate [ From Monitor] Respiratory 12 18 Rate Blood Pressure 134/45 142/55 142/55 O2 Sat by Pulse 99 100 98 Oximetry 04/18/21 04/18/21 04/18/21 06:51 07:01 07:11 Temperature Pulse Rate 91 H 83 82 Pulse Rate [ From Monitor] Respiratory Rate Blood Pressure 142/62 118/53 118/53 O2 Sat by Pulse 100 99 97 Oximetry 04/18/21 04/18/21 04/18/21 07:21 07:25 07:31 Temperature 100.2 F H Pulse Rate 88 86 Pulse Rate [ From Monitor] Respiratory Rate Blood Pressure 125/57 125/57 O2 Sat by Pulse 100 98 Oximetry 04/18/21 04/18/21 04/18/21 07:41 07:51 08:00 Temperature Pulse Rate 83 82 86 Pulse Rate [ From Monitor] Respiratory Rate Blood Pressure 103/75 120/72 139/61 O2 Sat by Pulse 100 99 100 Oximetry 04/18/21 04/18/21 04/18/21 08:11 08:21 08:30 Temperature Pulse Rate 80 88 82 Pulse Rate [ From Monitor] Respiratory Rate Blood Pressure 139/61 140/70 142/64 O2 Sat by Pulse 100 100 99 Oximetry 04/18/21 04/18/21 04/18/21 08:41 08:51 08:53 Temperature Pulse Rate 84 79 86 Pulse Rate [ From Monitor] Respiratory 10 L 13 Rate Blood Pressure 142/64 142/64 O2 Sat by Pulse 99 99 100 Oximetry 04/18/21 04/18/21 04/18/21 09:00 09:11 09:21 Temperature Pulse Rate 100 H 85 78 Pulse Rate [ From Monitor] Respiratory 12 12 12 Rate Blood Pressure 125/69 125/69 126/66 O2 Sat by Pulse 98 98 97 Oximetry 04/18/21 04/18/21 04/18/21 09:31 09:41 09:51 Temperature Pulse Rate 91 H 88 84 Pulse Rate [ From Monitor] Respiratory 18 17 13 Rate Blood Pressure 108/60 108/60 149/60 O2 Sat by Pulse 99 99 99 Oximetry 04/18/21 04/18/21 04/18/21 10:01 10:10 10:21 Temperature Pulse Rate 89 81 85 Pulse Rate [ From Monitor] Respiratory 21 14 18 Rate Blood Pressure 118/56 118/56 133/58 O2 Sat by Pulse 99 98 99 Oximetry 04/18/21 04/18/21 10:31 11:03 Temperature Pulse Rate 98 H 90 Pulse Rate [ From Monitor] Respiratory 15 25 H Rate Blood Pressure 161/75 119/84 O2 Sat by Pulse 100 99 Oximetry Constitutional: appears uncomfortable, other (elderly obese female with mildly increased respiratory effort at rest on MVS) Eyes: non-icteric ENT: oropharynx moist, other (ETT 23 cm RICARDO) Neck: supple, no lymphadenopathy, no JVD Effort: mildly labored Ascultation: Bilateral: diminished breath sounds, rhonchi (scant) Percussion: Bilateral: not dull Cardiovascular: regular rate and rhythm Gastrointestinal: normoactive bowel sounds, soft, non-tender, non-distended (protuberant), other (NGT to LIS) Integumentary: normal Extremities: no cyanosis, no edema, pulses normal, no ischemia or petechiae Neurologic: non-focal exam (grossly with intermittent spontaneous movement to ex tremities but ? mild posturing (decerebrate)) Psychiatric: other (unable to assess re: AMS) CBC and BMP: 04/18/21 05:34 04/18/21 05:34 ABG, PT/INR, D-dimer: ABG ABG pH 7.497 (7.320-7.450) H 04/18/21 03:00 POC ABG pCO2 36.7 mmHg (32.0-48.0) 04/18/21 03:00 POC ABG pO2 77.7 mmHg (83-108) L 04/18/21 03:00 POC ABG HCO3 27.8 04/18/21 03:00 ABG O2 Saturation 95.9 (0-100) 04/18/21 03:00 PT/INR, D-dimer PT 12.2 Sec. (12.2-14.9) 04/15/21 17:20 INR 0.91 (0.87-1.13) 04/15/21 17:20 Abnormal lab findings: Abnormal Labs 04/15/21 04/15/21 04/15/21 17:20 17:20 17:20 WBC 11.2 H RBC Hct 43.0 H MCV RDW 15.3 H Lymph % (Auto) 12.8 L Seg Neutrophils % 82.4 H Seg Neuts % (Manual) Lymphocytes % (Manual) Monocytes % (Manual) Seg Neutrophils # 9.3 H Seg Neutrophils # Man Lymphocytes # (Manual) Monocytes # (Manual) ABG pH POC ABG pCO2 POC ABG pO2 ABG Hemoglobin ABG Oxyhemoglobin ABG Sodium ABG Potassium ABG Chloride ABG Glucose Carboxyhemoglobin Sodium 129 L Potassium 7.1 H* Chloride 91.9 L BUN 35 H Creatinine 2.8 H Glucose POC Glucose Calcium Magnesium AST 69 H Total Creatine Kinase 1000 H CK-MB (CK-2) Troponin T Albumin HDL Cholesterol TSH Arterial Blood Glucose Arterial Blood Ionized Calcium Urine pH Urine Creatinine Acetaminophen 04/15/21 04/15/21 04/15/21 17:20 17:20 20:49 WBC RBC Hct MCV RDW Lymph % (Auto) Seg Neutrophils % Seg Neuts % (Manual) Lymphocytes % (Manual) Monocytes % (Manual) Seg Neutrophils # Seg Neutrophils # Man Lymphocytes # (Manual) Monocytes # (Manual) ABG pH 7.557 H POC ABG pCO2 30.0 L POC ABG pO2 493.3 H ABG Hemoglobin ABG Oxyhemoglobin 99.0 H ABG Sodium 131.5 L ABG Potassium 4.7 H ABG Chloride 94.0 L ABG Glucose 218 H Carboxyhemoglobin Sodium Potassium Chloride BUN Creatinine Glucose POC Glucose Calcium Magnesium AST Total Creatine Kinase CK-MB (CK-2) Troponin T Albumin HDL Cholesterol TSH 14.190 H Arterial Blood Glucose 218 H Arterial Blood Ionized Calcium 5.4 H Urine pH Urine Creatinine Acetaminophen 5.0 L 04/15/21 04/15/21 04/16/21 21:23 23:15 00:09 WBC RBC Hct MCV RDW Lymph % (Auto) Seg Neutrophils % Seg Neuts % (Manual) Lymphocytes % (Manual) Monocytes % (Manual) Seg Neutrophils # Seg Neutrophils # Man Lymphocytes # (Manual) Monocytes # (Manual) ABG pH POC ABG pCO2 POC ABG pO2 ABG Hemoglobin ABG Oxyhemoglobin ABG Sodium ABG Potassium ABG Chloride ABG Glucose Carboxyhemoglobin Sodium Potassium Chloride BUN Creatinine Glucose POC Glucose 173 H 207 H Calcium Magnesium AST Total Creatine Kinase CK-MB (CK-2) Troponin T Albumin HDL Cholesterol TSH Arterial Blood Glucose Arterial Blood Ionized Calcium Urine pH 9.0 H Urine Creatinine Acetaminophen 04/16/21 04/16/21 04/16/21 00:12 00:19 03:43 WBC RBC Hct MCV RDW Lymph % (Auto) Seg Neutrophils % Seg Neuts % (Manual) Lymphocytes % (Manual) Monocytes % (Manual) Seg Neutrophils # Seg Neutrophils # Man Lymphocytes # (Manual) Monocytes # (Manual) ABG pH 7.461 H POC ABG pCO2 POC ABG pO2 ABG Hemoglobin ABG Oxyhemoglobin ABG Sodium 126.8 L ABG Potassium 5.4 H ABG Chloride 90.0 L ABG Glucose 325 H Carboxyhemoglobin Sodium Potassium 6.7 H* Chloride BUN Creatinine Glucose POC Glucose Calcium Magnesium AST Total Creatine Kinase CK-MB (CK-2) Troponin T Albumin HDL Cholesterol TSH Arterial Blood Glucose 325 H Arterial Blood Ionized Calcium Urine pH Urine Creatinine 24.4 H Acetaminophen 04/16/21 04/16/21 04/16/21 03:55 05:02 05:02 WBC 21.2 H RBC Hct 43.4 H MCV 98 H RDW Lymph % (Auto) Seg Neutrophils % Seg Neuts % (Manual) 84.0 H Lymphocytes % (Manual) 2.0 L Monocytes % (Manual) 10.0 H Seg Neutrophils # Seg Neutrophils # Man 17.8 H Lymphocytes # (Manual) 0.4 L Monocytes # (Manual) 2.1 H ABG pH POC ABG pCO2 POC ABG pO2 ABG Hemoglobin ABG Oxyhemoglobin ABG Sodium ABG Potassium ABG Chloride ABG Glucose Carboxyhemoglobin Sodium 131 L Potassium 5.9 H Chloride 88.7 L BUN 34 H Creatinine 2.9 H Glucose 249 H POC Glucose 391 H Calcium 10.4 H Magnesium AST 65 H Total Creatine Kinase CK-MB (CK-2) Troponin T Albumin 3.8 L HDL Cholesterol TSH Arterial Blood Glucose Arterial Blood Ionized Calcium Urine pH Urine Creatinine Acetaminophen 04/16/21 04/16/21 04/16/21 11:34 16:09 18:15 WBC RBC Hct MCV RDW Lymph % (Auto) Seg Neutrophils % Seg Neuts % (Manual) Lymphocytes % (Manual) Monocytes % (Manual) Seg Neutrophils # Seg Neutrophils # Man Lymphocytes # (Manual) Monocytes # (Manual) ABG pH POC ABG pCO2 POC ABG pO2 ABG Hemoglobin ABG Oxyhemoglobin ABG Sodium ABG Potassium ABG Chloride ABG Glucose Carboxyhemoglobin Sodium Potassium Chloride BUN Creatinine Glucose POC Glucose 382 H 300 H 287 H Calcium Magnesium AST Total Creatine Kinase CK-MB (CK-2) Troponin T Albumin HDL Cholesterol TSH Arterial Blood Glucose Arterial Blood Ionized Calcium Urine pH Urine Creatinine Acetaminophen 04/16/21 04/16/21 04/16/21 19:01 19:01 23:48 WBC RBC Hct MCV RDW Lymph % (Auto) Seg Neutrophils % Seg Neuts % (Manual) Lymphocytes % (Manual) Monocytes % (Manual) Seg Neutrophils # Seg Neutrophils # Man Lymphocytes # (Manual) Monocytes # (Manual) ABG pH POC ABG pCO2 POC ABG pO2 ABG Hemoglobin ABG Oxyhemoglobin ABG Sodium ABG Potassium ABG Chloride ABG Glucose Carboxyhemoglobin Sodium 125 L Potassium 5.5 H 5.6 H Chloride 84.5 L BUN 37 H Creatinine 3.5 H Glucose 236 H POC Glucose 243 H Calcium Magnesium AST Total Creatine Kinase CK-MB (CK-2) Troponin T Albumin HDL Cholesterol TSH Arterial Blood Glucose Arterial Blood Ionized Calcium Urine pH Urine Creatinine Acetaminophen 04/17/21 04/17/21 04/17/21 03:09 05:04 06:14 WBC RBC Hct MCV RDW Lymph % (Auto) Seg Neutrophils % Seg Neuts % (Manual) Lymphocytes % (Manual) Monocytes % (Manual) Seg Neutrophils # Seg Neutrophils # Man Lymphocytes # (Manual) Monocytes # (Manual) ABG pH 7.518 H POC ABG pCO2 POC ABG pO2 ABG Hemoglobin ABG Oxyhemoglobin ABG Sodium 126.4 L ABG Potassium ABG Chloride 89.0 L ABG Glucose 200 H Carboxyhemoglobin Sodium 129 L Potassium Chloride 86.1 L BUN 39 H Creatinine 3.5 H Glucose 202 H POC Glucose 208 H Calcium Magnesium AST Total Creatine Kinase 750 H CK-MB (CK-2) Troponin T 0.119 H* D Albumin HDL Cholesterol 61 H TSH Arterial Blood Glucose 200 H Arterial Blood Ionized Calcium 4.4 L Urine pH Urine Creatinine Acetaminophen 04/17/21 04/17/21 04/17/21 11:55 15:35 15:35 WBC 17.1 H RBC Hct MCV RDW Lymph % (Auto) Seg Neutrophils % Seg Neuts % (Manual) Lymphocytes % (Manual) Monocytes % (Manual) Seg Neutrophils # Seg Neutrophils # Man Lymphocytes # (Manual) Monocytes # (Manual) ABG pH POC ABG pCO2 POC ABG pO2 ABG Hemoglobin ABG Oxyhemoglobin ABG Sodium ABG Potassium ABG Chloride ABG Glucose Carboxyhemoglobin Sodium Potassium Chloride BUN Creatinine Glucose POC Glucose 276 H Calcium Magnesium AST Total Creatine Kinase 615 H CK-MB (CK-2) 9.1 H Troponin T Albumin HDL Cholesterol TSH Arterial Blood Glucose Arterial Blood Ionized Calcium Urine pH Urine Creatinine Acetaminophen 04/17/21 04/18/21 04/18/21 17:07 00:01 03:00 WBC RBC Hct MCV RDW Lymph % (Auto) Seg Neutrophils % Seg Neuts % (Manual) Lymphocytes % (Manual) Monocytes % (Manual) Seg Neutrophils # Seg Neutrophils # Man Lymphocytes # (Manual) Monocytes # (Manual) ABG pH 7.497 H POC ABG pCO2 POC ABG pO2 77.7 L ABG Hemoglobin 10.4 L ABG Oxyhemoglobin ABG Sodium 129.7 L ABG Potassium 2.8 L ABG Chloride 92.0 L ABG Glucose 134 H Carboxyhemoglobin 0.3 L Sodium Potassium Chloride BUN Creatinine Glucose POC Glucose 148 H 192 H Calcium Magnesium AST Total Creatine Kinase CK-MB (CK-2) Troponin T Albumin HDL Cholesterol TSH Arterial Blood Glucose 134 H Arterial Blood Ionized Calcium 4.3 L Urine pH Urine Creatinine Acetaminophen 04/18/21 04/18/21 04/18/21 05:24 05:34 05:34 WBC 15.3 H RBC 3.34 L Hct MCV RDW 15.3 H Lymph % (Auto) Seg Neutrophils % Seg Neuts % (Manual) Lymphocytes % (Manual) Monocytes % (Manual) Seg Neutrophils # Seg Neutrophils # Man Lymphocytes # (Manual) Monocytes # (Manual) ABG pH POC ABG pCO2 POC ABG pO2 ABG Hemoglobin ABG Oxyhemoglobin ABG Sodium ABG Potassium ABG Chloride ABG Glucose Carboxyhemoglobin Sodium 134 L Potassium 3.0 L D Chloride 93.5 L BUN 42 H Creatinine 3.1 H Glucose 152 H POC Glucose 162 H Calcium Magnesium AST Total Creatine Kinase 427 H CK-MB (CK-2) Troponin T 0.081 H D Albumin HDL Cholesterol TSH Arterial Blood Glucose Arterial Blood Ionized Calcium Urine pH Urine Creatinine Acetaminophen 04/18/21 05:43 WBC RBC Hct MCV RDW Lymph % (Auto) Seg Neutrophils % Seg Neuts % (Manual) Lymphocytes % (Manual) Monocytes % (Manual) Seg Neutrophils # Seg Neutrophils # Man Lymphocytes # (Manual) Monocytes # (Manual) ABG pH POC ABG pCO2 POC ABG pO2 ABG Hemoglobin ABG Oxyhemoglobin ABG Sodium ABG Potassium ABG Chloride ABG Glucose Carboxyhemoglobin Sodium Potassium Chloride BUN Creatinine Glucose POC Glucose Calcium Magnesium 1.40 L AST Total Creatine Kinase CK-MB (CK-2) Troponin T Albumin HDL Cholesterol TSH Arterial Blood Glucose Arterial Blood Ionized Calcium Urine pH Urine Creatinine Acetaminophen Chest x-ray: image reviewed Allied health notes reviewed: nursing
[2021-04-18] MEDS ORDERED: MAGNESIUM SULFATE 2 GM/50 ML BAG IV ONE ×2 (12:30→13:00)
--- NOTE | 2021-04-18 13:14 | Progress Note ---
Assessment and Plan Assessment and plan: This is a 80-year-old female with HTN, DM, UT, breast CA s/p double mastectomy, TIA who presented with hypoglycemia, AMS who was admitted with SIRS, symptomatic bradycardia, acute metabolic encephalopathy, acute hypoxic respiratory failure, elevated TSH, hyperglycemia, hyponatremia, hypokalemia, ROJELIO and rhabdomyolysis Acute metabolic encephalopathy Acute hypoxic respiratory failure Hypoglycemia, resolved First-degree heart block Resolved ileus versus mechanical obstruction Acute kidney injury Hyponatremia Hypochloremia Hypokalemia Leukocytosis Possible seizure activity Elevated TSH Mild rhabdomyolysis Leukocytosis Hypertension Diabetes mellitus CAD Obesity -[facility], cardiology, nephrology, neurology, nutrition consulted, appreciate recommendations -04/15 CT head shows age-related atrophic change, chronic small vessel ischemic change, no CT evidence of acute large vessel territory ischemic injury, hemorrhage or mass -04/15 echocardiogram shows left ventricular systolic function borderline, LVEF 45 to 50%, mild concentric LVH, paradoxical septal motion consistent with left bundle branch block with no clot identified in the left ventricle, calcified aortic valve without regurgitation or stenosis, trace MR, trace TR, no AR, RVSP is 24 mmHg -04/17 KUB shows gas-filled and dilated loops of small bowel noted over the upper abdomen largest measuring 5 cm concerning for ileus versus mechanical ob struction -04/18 KUB shows interval resolution of previously seen small bowel dilation -04/18 EEG pending -04/18 MRI brain pending -S/p antibiotic therapy x1 -S/p D10 gtt -Accu-Cheks every 6, SSI -Resume TF -D5W gtt per nephrology -S/p IV calcium gluconate, regular insulin, D50 -S/p transcutaneous pacing, intermittent demand pacer in place -Renal ultrasound pending -Avoid ACEi/ARB in setting of ROJELIO -Avoid AV arron blocking agents -Avoid nephrotoxic agents and renally dose medications -Low-dose beta-angel -VAP bundle, wean mechanical ventilation as tolerated -TSH 14.1, T4 4.1, T3 pending -Blood pressure monitoring per protocol -IV hydralazine as needed -Provegil -Trend CBC, BMP, CK DVT/GI prophylaxis: Heparin subcu, PPI, SCDs to bilateral lower extremities while in bed Disposition: ICU The high probability of a clinically significant, sudden or life threatening deterioration of the [multi] system(s) required my full and direct attention, intervention and personal management. The aggregate critical care time was [35] minutes. This time is in addition to time spent performing reported procedures but includes the following: [x] Data Review and interpretation [x] Patient assessment and monitoring of vital signs [x] Documentation [x] Medication orders and management History Interval history: This is a 80-year-old female with hypertension, diabetes mellitus, UT, breast cancer s/p double mastectomy, and a TIA who presented with hypoglycemia and altered mental status on 04/15 via EMS. Per EMS patient was unresponsive on their arrival and her blood glucose was 38 and she received 1 amp of dextrose patient continued to be unresponsive and only moaned with her eyes deviating to the left. Work-up in the emergency department revealed SIRS, symptomatic bradycardia, acute metabolic encephalopathy, acute hypoxic respiratory failure, elevated TSH, hyperglycemia, hyponatremia, hyperkalemia, acute kidney injury with ATN, and rhabdomyolysis 04/16: Neurology consulted, COVID-19 PCR negative, D10 drip decreased and eventually discontinued by [facility] and started on D5W for 1 L. Hydralazine as needed. Patient had hyper kalemia today and was treated with D50, insulin and Kayexalate. This time examination patient is on assist control tidal volume 450, rate of 16, PEEP of 6 and 25% FiO2. 04/17: Patient started on low-dose beta-angel per cardiology, CPAP trial again per [facility], BUN/creatinine holding steady and hypochloremia/hyponatremia slightly improved and hypokalemia has resolved. This morning a KUB was obtained which was concerning for ileus versus mechanical obstruction and surgery was consulted. Patient was made n.p.o. and NG tube placed to wall suction. Patient was given suppository. Per RN patient did not have a BM even though she was given Kayexalate yesterday. Will obtain a KUB in the a.m. Neurology was consul edwin yesterday and will await further recommendations. Nephew updated at bedside today, Carlos Romero. 04/18: Neurology has ordered EEG/MRI B, [facility] continues to wean MV. Persistent low grade temperature so we will obtain BCx2/UA. Patient has improving leukocytosis, hyponatremia, renal function studies and hypochloremia. She has hypokalemia today which is being repleted. Surgery has signed off today and has okayed resumption of TF. [facility] will trial CPAP for longer today and plans to attempt extubation in AM. Family has requested transfer to [place] and Dr. Gordon will attempt to contact transfer center. I updated her nephew, Carlos Romero over the phone today abouyt current events and update on transfer ([place] will conduct a utilization review) Hospitalist Physical - Constitutional Vitals: Temp Pulse Resp BP Pulse Ox 100.2 F H 95 H 29 H 158/68 100 04/18/21 07:25 04/18/21 12:01 04/18/21 12:01 04/18/21 12:01 04/18/21 12:01 General appearance: Present: no acute distress, other (sedated) - EENT Eyes: Present: PERRL, EOM intact - Neck Neck: Absent: masses or JVD, cervical LAD - Respiratory Respiratory effort: normal Respiratory: bilateral: diminished - Cardiovascular Rhythm: regular Heart Sounds: Present: S1 & S2. Absent: systolic murmur, diastolic murmur - Extremities Extremities: no ischemia, pulses intact, pulses symmetrical, No edema, normal temperature, normal color Peripheral Pulses: within normal limits - Abdominal General gastrointestinal: soft, non-tender, non-distended, normal bowel sounds - Integumentary Integumentary: Present: warm, dry - Psychiatric Psychiatric: other (sedated) - Neurologic Neurologic: other (sedated) - Allied Health Allied health notes reviewed: nursing, RT, social work HEART Score - HEART Score Troponin: Troponin T 0.081 ng/mL (0.00-0.029) H D 04/18/21 05:34 Results - Labs CBC & Chem 7: 04/18/21 05:34 04/18/21 05:34 Labs: Laboratory Last Values WBC 15.3 K/mm3 (4.5-11.0) H 04/18/21 05:34 RBC 3.34 M/mm3 (3.65-5.03) L 04/18/21 05:34 Hgb 10.6 gm/dl (10.1-14.3) 04/18/21 05:34 Hct 32.4 % (30.3-42.9) 04/18/21 05:34 MCV 97 fl (79-97) 04/18/21 05:34 MCH 32 pg (28-32) 04/18/21 05:34 MCHC 33 % (30-34) 04/18/21 05:34 RDW 15.3 % (13.2-15.2) H 04/18/21 05:34 Plt Count 140 K/mm3 (140-440) 04/18/21 05:34 Lymph % (Auto) 12.8 % (13.4-35.0) L 04/15/21 17:20 [place] % (Auto) 4.1 % (0.0-7.3) 04/15/21 17:20 Eos % (Auto) 0.3 % (0.0-4.3) 04/15/21 17:20 Baso % (Auto) 0.4 % (0.0-1.8) 04/15/21 17:20 Lymph # (Auto) 1.4 K/mm3 (1.2-5.4) 04/15/21 17:20 [place] # (Auto) 0.5 K/mm3 (0.0-0.8) 04/15/21 17:20 Eos # (Auto) 0.0 K/mm3 (0.0-0.4) 04/15/21 17:20 Baso # (Auto) 0.0 K/mm3 (0.0-0.1) 04/15/21 17:20 Add Manual Diff Complete 04/16/21 05:02 Total Counted 100 04/16/21 05:02 Seg Neutrophils % 82.4 % (40.0-70.0) H 04/15/21 17:20 Seg Neuts % (Manual) 84.0 % (40.0-70.0) H 04/16/21 05:02 Band Neutrophils % 3.0 % 04/16/21 05:02 Lymphocytes % (Manual) 2.0 % (13.4-35.0) L 04/16/21 05:02 Monocytes % (Manual) 10.0 % (0.0-7.3) H 04/16/21 05:02 Metamyelocytes % 1.0 % 04/16/21 05:02 Nucleated RBC % Not Reportable 04/16/21 05:02 Seg Neutrophils # 9.3 K/mm3 (1.8-7.7) H 04/15/21 17:20 Seg Neutrophils # Man 17.8 K/mm3 (1.8-7.7) H 04/16/21 05:02 Band Neutrophils # 0.6 K/mm3 04/16/21 05:02 Lymphocytes # (Manual) 0.4 K/mm3 (1.2-5.4) L 04/16/21 05:02 Abs React Lymphs (Man) 0.0 K/mm3 04/16/21 05:02 Monocytes # (Manual) 2.1 K/mm3 (0.0-0.8) H 04/16/21 05:02 Eosinophils # (Manual) 0.0 K/mm3 (0.0-0.4) 04/16/21 05:02 Basophils # (Manual) 0.0 K/mm3 (0.0-0.1) 04/16/21 05:02 Metamyelocytes # 0.2 K/mm3 04/16/21 05:02 Myelocytes # 0.0 K/mm3 04/16/21 05:02 Promyelocytes # 0.0 K/mm3 04/16/21 05:02 Blast Cells # 0.0 K/mm3 04/16/21 05:02 WBC Morphology Not Reportable 04/16/21 05:02 Hypersegmented Neuts Not Reportable 04/16/21 05:02 Hyposegmented Neuts Not Reportable 04/16/21 05:02 Hypogranular Neuts Not Reportable 04/16/21 05:02 Smudge Cells Not Reportable 04/16/21 05:02 Toxic Granulation Not Reportable 04/16/21 05:02 Toxic Vacuolation Not Reportable 04/16/21 05:02 Dohle Bodies Not Reportable 04/16/21 05:02 Pelger-Huet Anomaly Not Reportable 04/16/21 05:02 [place] Rods Not Reportable 04/16/21 05:02 Platelet Estimate Consistent w auto 04/16/21 05:02 Clumped Platelets Not Reportable 04/16/21 05:02 Plt Clumps, EDTA Not Reportable 04/16/21 05:02 Large Platelets Not Reportable 04/16/21 05:02 Giant Platelets Not Reportable 04/16/21 05:02 Platelet Satelliting Not Reportable 04/16/21 05:02 Plt Morphology Comment Not Reportable 04/16/21 05:02 RBC Morphology Not Reportable 04/16/21 05:02 Dimorphic RBCs Not Reportable 04/16/21 05:02 Polychromasia Not Reportable 04/16/21 05:02 Hypochromasia Not Reportable 04/16/21 05:02 Poikilocytosis Not Reportable 04/16/21 05:02 Anisocytosis Few 04/16/21 05:02 Microcytosis Not Reportable 04/16/21 05:02 Macrocytosis Not Reportable 04/16/21 05:02 Spherocytes Not Reportable 04/16/21 05:02 Pappenheimer Bodies Not Reportable 04/16/21 05:02 Sickle Cells Not Reportable 04/16/21 05:02 Target Cells Not Reportable 04/16/21 05:02 Tear Drop Cells Not Reportable 04/16/21 05:02 Ovalocytes Not Reportable 04/16/21 05:02 Helmet Cells Not Reportable 04/16/21 05:02 [place] Bodies Not Reportable 04/16/21 05:02 [place] Rings Not Reportable 04/16/21 05:02 Theo Cells Not Reportable 04/16/21 05:02 Bite Cells Not Reportable 04/16/21 05:02 Crenated Cell Not Reportable 04/16/21 05:02 Elliptocytes Not Reportable 04/16/21 05:02 Acanthocytes (Spur) Not Reportable 04/16/21 05:02 Rouleaux Not Reportable 04/16/21 05:02 Hemoglobin C Crystals Not Reportable 04/16/21 05:02 Schistocytes Not Reportable 04/16/21 05:02 Malaria parasites Not Reportable 04/16/21 05:02 James Bodies Not Reportable 04/16/21 05:02 Hem Pathologist Commnt No 04/16/21 05:02 PT 12.2 Sec. (12.2-14.9) 04/15/21 17:20 INR 0.91 (0.87-1.13) 04/15/21 17:20 APTT 31.8 Sec. (24.2-36.6) 04/15/21 17:20 ABG pH 7.497 (7.320-7.450) H 04/18/21 03:00 POC ABG pCO2 36.7 mmHg (32.0-48.0) 04/18/21 03:00 POC ABG pO2 77.7 mmHg (83-108) L 04/18/21 03:00 POC ABG HCO3 27.8 04/18/21 03:00 ABG O2 Saturation 95.9 (0-100) 04/18/21 03:00 POC ABG Base Excess 4.4 04/18/21 03:00 ABG Hemoglobin 10.4 (12.0-17.5) L 04/18/21 03:00 ABG Oxyhemoglobin 95.3 (94-98) 04/18/21 03:00 ABG Methemoglobin 0.3 (0.0-1.5) 04/18/21 03:00 ABG Sodium 129.7 mmol/L (136.0-145.0) L 04/18/21 03:00 ABG Potassium 2.8 mmol/L (3.40-4.50) L 04/18/21 03:00 ABG Chloride 92.0 mmol/L (98-107) L 04/18/21 03:00 ABG Glucose 134 mg/dL (65-95) H 04/18/21 03:00 Carboxyhemoglobin 0.3 (0.5-1.5) L 04/18/21 03:00 FiO2 % 25.0 04/18/21 03:00 Sodium 134 mmol/L (137-145) L 04/18/21 05:34 Potassium 3.0 mmol/L (3.6-5.0) L D 04/18/21 05:34 Chloride 93.5 mmol/L (98-107) L 04/18/21 05:34 Carbon Dioxide 27 mmol/L (22-30) 04/18/21 05:34 Anion Gap 17 mmol/L 04/18/21 05:34 BUN 42 mg/dL (7-17) H 04/18/21 05:34 Creatinine 3.1 mg/dL (0.6-1.2) H 04/18/21 05:34 Estimated GFR 17 ml/min 04/18/21 05:34 BUN/Creatinine Ratio 14 % 04/18/21 05:34 Glucose 152 mg/dL (65-100) H 04/18/21 05:34 POC Glucose 162 mg/dL (70-105) H 04/18/21 05:24 Lactic Acid 1.50 mmol/L (0.7-2.0) 04/15/21 17:20 Calcium 8.5 mg/dL (8.4-10.2) 04/18/21 05:34 Magnesium 1.40 mg/dL (1.7-2.3) L 04/18/21 05:43 Total Bilirubin 0.70 mg/dL (0.1-1.2) 04/16/21 05:02 AST 65 units/L (5-40) H 04/16/21 05:02 ALT 31 units/L (7-56) 04/16/21 05:02 Alkaline Phosphatase 79 units/L (35-129) 04/16/21 05:02 Ammonia 46.0 umol/L (25-60) 04/15/21 17:20 Total Creatine Kinase 427 units/L (30-135) H 04/18/21 05:34 CK-MB (CK-2) 9.1 ng/mL (0.0-4.0) H 04/17/21 15:35 CK-MB (CK-2) Rel Index 1.4 (0-4) 04/17/21 15:35 Troponin T 0.081 ng/mL (0.00-0.029) H D 04/18/21 05:34 NT-Pro-B Natriuret Pep 697.9 pg/mL (0-900) 04/15/21 17:20 Total Protein 6.3 g/dL (6.3-8.2) D 04/16/21 05:02 Albumin 3.8 g/dL (3.9-5) L 04/16/21 05:02 Albumin/Globulin Ratio 1.5 % 04/16/21 05:02 Triglycerides 103 mg/dL (2-149) 04/17/21 05:04 Cholesterol 122 mg/dL (50-199) 04/17/21 05:04 LDL Cholesterol Direct 55 mg/dL (50-130) 04/17/21 05:04 HDL Cholesterol 61 mg/dL (40-59) H 04/17/21 05:04 Cholesterol/HDL Ratio 2.00 % 04/17/21 05:04 Procalcitonin 0.20 ng/mL (<0.15) 04/16/21 19:01 TSH 14.190 mlU/mL (0.270-4.200) H 04/15/21 17:20 Thyroxine (T4) 4.1 ug/dL (4.0-12.0) 04/16/21 19:01 Arterial Blood Glucose 134 mg/dL (65-95) H 04/18/21 03:00 Arterial Blood Ionized Calcium 4.3 mg/dL (4.6-5.3) L 04/18/21 03:00 Urine Color Straw (Yellow) 04/16/21 00:09 Urine Turbidity Clear (Clear) 04/16/21 00:09 Urine pH 9.0 (5.0-7.0) H 04/16/21 00:09 Ur Specific [place] 1.009 (1.003-1.030) 04/16/21 00:09 Urine Protein 100 mg/dl mg/dL (Negative) 04/16/21 00:09 Urine Glucose (UA) 150 mg/dL (Negative) 04/16/21 00:09 Urine Ketones Neg mg/dL (Negative) 04/16/21 00:09 Urine Blood Sm (Negative) 04/16/21 00:09 Urine Nitrite Neg (Negative) 04/16/21 00:09 Urine Bilirubin Neg (Negative) 04/16/21 00:09 Urine Urobilinogen < 2.0 mg/dL (<2.0) 04/16/21 00:09 Ur Leukocyte Esterase Neg (Negative) 04/16/21 00:09 Urine WBC (Auto) 2.0 /HPF (0.0-6.0) 04/16/21 00:09 Urine RBC (Auto) 9.0 /HPF (0.0-6.0) 04/16/21 00:09 U Epithel Cells (Auto) < 1.0 /HPF (0-13.0) 04/16/21 00:09 Urine Bacteria (Auto) 1+ /HPF (Negative) 04/16/21 00:09 Urine Creatinine 24.4 mg/dL (0.1-20.0) H 04/16/21 00:12 Urine Sodium 97 mmol/L 04/16/21 00:12 Salicylates 4.1 mg/dL (2.8-20.0) 04/15/21 17:20 Acetaminophen 5.0 ug/mL (10.0-30.0) L 04/15/21 17:20 Plasma/Serum Alcohol 0.02 % (0-0.07) 04/15/21 17:20 Coronavirus (PCR) Negative (Negative) 04/16/21 Unknown Microbiology: Microbiology 04/15/21 17:30 Peripheral/Venous Blood Culture - Preliminary NO GROWTH AFTER 48 HOURS 04/15/21 17:20 Peripheral/Venous Blood Culture - Preliminary NO GROWTH AFTER 48 HOURS Kerr/IV: Voiding Method Indwelling Catheter Active Medications - Current Medications Current Medications: Generic Name Dose Route Start Last Admin Trade Name Freq PRN Reason Stop Dose Admin Acetaminophen 650 mg 04/15/21 19:11 04/17/21 22:13 Acetaminophen 325 Mg Tab PO 650 mg Q6H PRN Administration Pain MILD(1-3)/Fever >100.5/SEXTON Lipase/Protease/Amylase 1 each 04/16/21 12:52 Lipase 10,500/Protease 25,000/Amylase 43,750 (Units) Dr Simpson FEEDTUBE PRN PRN For Clogged Feeding Tube Bisacodyl 10 mg 04/17/21 11:01 04/17/21 13:46 Bisacodyl 10 Mg Rect Supp AR 10 mg QDAY PRN Administration Constipation Brimonidine Tartrate 1 drops 04/17/21 22:00 04/18/21 10:57 Brimonidine 0.15% Ophth Soln OU 1 drops BID WOLFGANG Administration Famotidine 20 mg 04/17/21 10:00 04/18/21 10:57 Famotidine 20 Mg Tab PO 20 mg DAILY WOLFGANG Administration Heparin Sodium (Porcine) 5,000 unit 04/15/21 22:00 04/18/21 10:56 Heparin 5,000 Unit/1 Ml Vial SUB-Q 5,000 unit Q12HR WOLFGANG Administration Hydralazine HCl 10 mg 04/16/21 18:00 04/17/21 10:51 Hydralazine 20 Mg/1 Ml Inj IV 10 mg Q4HR PRN Administration Hypertension Hydrophilic Ointment 1 applic 04/15/21 17:24 Lip Therapy Vaseline TP Q2HR PRN Dry Lips Propofol 1,000 mg in 100 mls @ 2.91 mls/hr 04/15/21 18:00 04/18/21 10:41 Diprivan 10 Mg/Ml IV 0 mcg/kg/min TITR WOLFGANG 0 mls/hr Titration Protocol 5 MCG/KG/MIN Dextrose/Sodium Chloride 1,000 mls @ 50 mls/hr 04/16/21 21:00 04/17/21 17:53 D5ns IV 50 mls/hr DIRECT WOLFGANG Administration Potassium Chloride 10 meq in 100 mls @ 100 mls/hr 04/18/21 09:00 04/18/21 12:33 Kcl 10meq/100ml IV 04/18/21 12:59 100 mls/hr Q1H WOLFGANG Administration Magnesium Sulfate 2 gm in 50 mls @ 25 mls/hr 04/18/21 12:30 04/18/21 12:34 Magnesium Sulfate 2gm/50ml IV 04/18/21 14:29 25 mls/hr ONCE ONE Administration Insulin Human Lispro 0 unit 04/16/21 15:00 04/18/21 05:44 Insulin Lispro 100 Unit/Ml SUB-Q 3 unit Q6HR WOLFGANG Administration Protocol Latanoprost 1 drops 04/17/21 18:00 04/17/21 17:53 Latanoprost 0.005% Ophth Soln 2.5 Ml OU 1 drops QPM WOLFGANG Administration Levothyroxine Sodium 25 mcg 04/19/21 06:00 Levothyroxine 25 Mcg Tab PO DAILY@0600 WOLFGANG Metoprolol Tartrate 12.5 mg 04/17/21 10:00 04/18/21 10:56 Metoprolol Tartrate 25 Mg Tab PO 12.5 mg BID WOLFGANG Administration Modafinil 100 mg 04/19/21 10:00 Modafinil 100 Mg Tab PO QAM WOLFGANG Multi-Ingred Cream/Lotion/Oil/Oint 1 applic 04/15/21 17:24 04/16/21 11:19 Mineral Oil/Petrolatum, White Ophth Oint 3.5 Gm OU 1 applic Q4HR PRN Administration Dry Eye(s) Simple Syrup 15 ml 04/16/21 12:52 Simple Syrup 15 Ml FEEDTUBE PRN PRN Hypoglycemia Simple Syrup 30 ml 04/16/21 12:52 Simple Syrup 15 Ml FEEDTUBE PRN PRN Hypoglycemia Sodium Bicarbonate 325 mg 04/16/21 12:52 Sodium Bicarbonate 325 Mg Tab FEEDTUBE PRN PRN For Clogged Feeding Tube Sodium Chloride 10 ml 04/15/21 22:00 04/18/21 10:53 Sodium Chloride 0.9% 10 Ml Flush Syringe IV 10 ml BID WOLFGANG Administration Sodium Chloride 10 ml 04/15/21 19:11 Sodium Chloride 0.9% 10 Ml Flush Syringe IV PRN PRN LINE FLUSH Timolol Maleate 1 drops 04/19/21 10:00 Timolol 0.5% Ophth Soln 5 Ml OU QDAY WOLFGANG Nutrition/Malnutrition Assess - Dietary Evaluation Nutrition/Malnutrition Findings: Nutrition Notes Start: 04/16/21 12:31 Freq: Status: Active Protocol: Document 04/18/21 12:35 EDWARD (Rec: 04/18/21 12:41 EDWARD [id number]) Co-Sign 04/18/21 12:35 SUNDEEP Nutrition Notes Initial or Follow up Reassessment Current Diagnosis Acute Kidney Injury,Diabetes, Hypertension,Respiratory Failure Other Pertinent Diagnosis Dementia, AMS, hx BrCA, UT Labs/Tests Na 134 K 3.0 BUN 42 Cr 3.1 BG 152 Pertinent Medications Kcl 10 meq/hr Insulin Height 5 ft 6 in Weight 97 kg [place] Body Weight (kg) 59.09 BMI 34.4 Weight Status Obese Subjective/Other Information F/U for TF start and vent status. Per RN, pt having high output and waiting to hear back from GI about POC. Pt remains on vent and NGT to LIS . Percent of energy/protein needs met: 0%/0% Burn Absent Trauma Absent Difficulty In Swallowing Current % PO Negligible Minimum of two criteria No physical signs of malnutrition #1 Nutrition Diagnosis Inadequate oral intake Etiology ARF As Evidenced by Signs and Symptoms pt on mechanical vent Diagnosis Progress(for reassessment Continues documentation) Is patient on ventilator? Yes Is Patient Ambulatory and/or Out of Bed No REE-([facility]-confined to bed) 1748.712 Kcal/Kg value to use for calculation 15 Approximate Energy Requirements Using 1455 kcal/Kg Calculation Used for Recommendations Kcal/kg Additional Notes protien needs: >118g (>2 g/ kgIBW) Fluid needs: 1 ml/kcal Nutrition Intervention Change Diet Order: Initiate TF when medically able Nutrition Support: Nepro at 35 ml/hr with a free water flush of 75 ml q4h for hyponatremia. Resume free water flush of 150 ml q4h once hyponatremia resolves. Kcal 1,512 Protein (gm) 68 Fluid (mL) 611 Goal #1 Initiate TF Goal #2 Meet needs as best as possible via TF Anticipated Discharge Needs: unable to determine at this time Follow-Up By: 05/21/21 Additional Comments F/U for TF start/tolerance
[2021-04-18 13:49] LABS: Bilirubin,Urine NEG (Negative); Blood,Urine SM (Negative); Color,Urine Yellow (Yellow)
[2021-04-18 13:57] LABS: Protein,Urine >500 mg/dL (Negative)
[2021-04-18] MEDS ORDERED: CEFEPIME/NS 1 GM/100 ML 1 GM/100 ML BAG IV SCH (15:00)
[2021-04-18] MEDS ORDERED: fentaNYL 100 MCG/2 ML INJ ONE (15:22)
--- NOTE | 2021-04-18 16:11 | Progress Note ---
Assessment and Plan 80-year-old female with 1. ileus vs sbo 2. hyponatremia 3. VDRF 4. ROJELIO 5. metabolic encephalopathy KUB - resolution of dilated small bowel loops Pt stable. Ileus resolved - having BMs. Plan: 1. May resume TF 2. 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 daily BMP with replacement of lytes as needed 4. turning q2 No surgical intervention indicated. Will s/o D/W [employer] Talat Arriaga Thank you, please call with any questions or concerns. Evaluation and treatment of this patient was during the time of the national and state emergency arising from COVID19 coronavirus pandemic. Treatment and procedures performed meet the current and available best practice and guidelines for patient during the COVID pandemic. Subjective Date of service: 04/18/21 Narrative: Pt seen and examined. Had 2 large BMs overnight. No f/c. Objective Vital Signs - 12hr 04/18/21 04/18/21 04/18/21 03:21 03:31 03:41 Temperature Pulse Rate 85 87 81 Pulse Rate [ From Monitor] Respiratory 10 L 18 14 Rate Blood Pressure 79/40 120/82 132/75 O2 Sat by Pulse 99 98 98 Oximetry 04/18/21 04/18/21 04/18/21 03:51 04:00 04:11 Temperature 100.0 F H Pulse Rate 77 92 H 90 Pulse Rate [ 99 H From Monitor] Respiratory 18 17 13 Rate Blood Pressure 150/65 112/63 112/63 O2 Sat by Pulse 99 99 99 Oximetry 04/18/21 04/18/21 04/18/21 04:21 04:31 04:41 Temperature Pulse Rate 88 89 105 H Pulse Rate [ From Monitor] Respiratory 15 13 19 Rate Blood Pressure 101/49 151/55 151/55 O2 Sat by Pulse 99 98 98 Oximetry 04/18/21 04/18/21 04/18/21 04:51 05:01 05:11 Temperature Pulse Rate 87 87 85 Pulse Rate [ From Monitor] Respiratory 10 L 12 16 Rate Blood Pressure 101/49 145/67 145/67 O2 Sat by Pulse 99 98 98 Oximetry 04/18/21 04/18/21 04/18/21 05:21 05:30 05:41 Temperature Pulse Rate 81 86 79 Pulse Rate [ From Monitor] Respiratory 12 14 16 Rate Blood Pressure 151/52 152/62 152/62 O2 Sat by Pulse 99 99 99 Oximetry 04/18/21 04/18/21 04/18/21 05:51 06:00 06:11 Temperature Pulse Rate 93 H 92 H 86 Pulse Rate [ From Monitor] Respiratory 14 10 L 11 L Rate Blood Pressure 135/55 135/55 O2 Sat by Pulse 100 99 99 Oximetry 04/18/21 04/18/21 04/18/21 06:21 06:31 06:41 Temperature Pulse Rate 93 H 88 78 Pulse Rate [ From Monitor] Respiratory 12 18 Rate Blood Pressure 134/45 142/55 142/55 O2 Sat by Pulse 99 100 98 Oximetry 04/18/21 04/18/21 04/18/21 06:51 07:01 07:11 Temperature Pulse Rate 91 H 83 82 Pulse Rate [ From Monitor] Respiratory Rate Blood Pressure 142/62 118/53 118/53 O2 Sat by Pulse 100 99 97 Oximetry 04/18/21 04/18/21 04/18/21 07:21 07:25 07:31 Temperature 100.2 F H Pulse Rate 88 86 Pulse Rate [ From Monitor] Respiratory Rate Blood Pressure 125/57 125/57 O2 Sat by Pulse 100 98 Oximetry 04/18/21 04/18/21 04/18/21 07:41 07:51 08:00 Temperature Pulse Rate 83 82 86 Pulse Rate [ 90 From Monitor] Respiratory 18 Rate Blood Pressure 103/75 120/72 139/61 O2 Sat by Pulse 100 99 97 Oximetry 04/18/21 04/18/21 04/18/21 08:11 08:21 08:30 Temperature Pulse Rate 80 88 82 Pulse Rate [ From Monitor] Respiratory Rate Blood Pressure 139/61 140/70 142/64 O2 Sat by Pulse 100 100 99 Oximetry 04/18/21 04/18/21 04/18/21 08:41 08:51 08:53 Temperature Pulse Rate 84 79 86 Pulse Rate [ From Monitor] Respiratory 10 L 13 Rate Blood Pressure 142/64 142/64 O2 Sat by Pulse 99 99 100 Oximetry 04/18/21 04/18/21 04/18/21 09:00 09:11 09:21 Temperature Pulse Rate 100 H 85 78 Pulse Rate [ From Monitor] Respiratory 12 12 12 Rate Blood Pressure 125/69 125/69 126/66 O2 Sat by Pulse 98 98 97 Oximetry 04/18/21 04/18/21 04/18/21 09:31 09:41 09:51 Temperature Pulse Rate 91 H 88 84 Pulse Rate [ From Monitor] Respiratory 18 17 13 Rate Blood Pressure 108/60 108/60 149/60 O2 Sat by Pulse 99 99 99 Oximetry 04/18/21 04/18/21 04/18/21 10:01 10:10 10:21 Temperature Pulse Rate 89 81 85 Pulse Rate [ From Monitor] Respiratory 21 14 18 Rate Blood Pressure 118/56 118/56 133/58 O2 Sat by Pulse 99 98 99 Oximetry 04/18/21 04/18/21 04/18/21 10:31 10:41 10:50 Temperature Pulse Rate 98 H 82 95 H Pulse Rate [ From Monitor] Respiratory 15 13 19 Rate Blood Pressure 161/75 161/75 104/68 O2 Sat by Pulse 100 100 99 Oximetry 04/18/21 04/18/21 04/18/21 11:00 11:03 11:11 Temperature Pulse Rate 93 H 90 91 H Pulse Rate [ From Monitor] Respiratory 24 25 H 23 Rate Blood Pressure 104/68 119/84 104/68 O2 Sat by Pulse 100 99 99 Oximetry 04/18/21 04/18/21 04/18/21 11:21 11:30 11:41 Temperature Pulse Rate 97 H 106 H 99 H Pulse Rate [ From Monitor] Respiratory 24 29 H 21 Rate Blood Pressure 162/78 149/69 162/78 O2 Sat by Pulse 99 99 100 Oximetry 04/18/21 04/18/21 04/18/21 11:51 12:00 12:01 Temperature 98.3 F Pulse Rate 86 89 95 H Pulse Rate [ 84 From Monitor] Respiratory 20 20 29 H Rate Blood Pressure 118/67 158/68 O2 Sat by Pulse 99 98 100 Oximetry 04/18/21 04/18/21 04/18/21 12:11 12:21 12:31 Temperature Pulse Rate 96 H 104 H 92 H Pulse Rate [ From Monitor] Respiratory 22 21 22 Rate Blood Pressure 149/69 158/65 158/65 O2 Sat by Pulse 99 100 99 Oximetry 04/18/21 04/18/21 04/18/21 12:41 12:51 13:01 Temperature Pulse Rate 81 84 93 H Pulse Rate [ From Monitor] Respiratory 20 23 21 Rate Blood Pressure 158/68 158/68 156/68 O2 Sat by Pulse 100 99 99 Oximetry 04/18/21 04/18/2121 13:11 13:21 13:31 Temperature Pulse Rate 86 82 85 Pulse Rate [ From Monitor] Respiratory 25 H 20 19 Rate Blood Pressure 158/65 158/65 158/65 O2 Sat by Pulse 98 98 99 Oximetry 04/18/21 04/18/21 04/18/21 13:41 13:51 14:01 Temperature Pulse Rate 78 90 96 H Pulse Rate [ From Monitor] Respiratory 21 21 25 H Rate Blood Pressure 156/68 156/68 157/64 O2 Sat by Pulse 99 99 100 Oximetry 04/18/21 04/18/21 04/18/21 14:11 14:21 14:56 Temperature Pulse Rate 99 H 80 82 Pulse Rate [ From Monitor] Respiratory 20 19 Rate Blood Pressure 157/64 157/64 157/64 O2 Sat by Pulse 98 98 99 Oximetry - General physical appearance Narrative Exam: Gen.: Intubated, on vent. No apparent distress ENT: Trachea midline. ET tube and NG tube in place. NG tube output is light gastric fluid. No lymphadenopathy. CV: S1, S2 present Respiratory: No audible wheezes Abdomen: Soft, nondistended, nontender. Abdominal binder in place. Epigastric midline hernia is soft and is reduced. No rebound, rigidity, guarding Extremities: No clubbing, cyanosis, edema - Labs 04/18/21 05:34 04/18/21 05:34 Diabetes panel 04/18/21 Range/Units 05:34 Sodium 134 L (137-145) mmol/L Potassium 3.0 L D (3.6-5.0) mmol/L Chloride 93.5 L (98-107) mmol/L Carbon Dioxide 27 (22-30) mmol/L BUN 42 H (7-17) mg/dL Creatinine 3.1 H (0.6-1.2) mg/dL Glucose 152 H (65-100) mg/dL Calcium 8.5 (8.4-10.2) mg/dL Calcium panel 04/18/21 Range/Units 05:34 Calcium 8.5 (8.4-10.2) mg/dL Pituitary panel 04/18/21 Range/Units 05:34 Sodium 134 L (137-145) mmol/L Potassium 3.0 L D (3.6-5.0) mmol/L Chloride 93.5 L (98-107) mmol/L Carbon Dioxide 27 (22-30) mmol/L BUN 42 H (7-17) mg/dL Creatinine 3.1 H (0.6-1.2) mg/dL Glucose 152 H (65-100) mg/dL Calcium 8.5 (8.4-10.2) mg/dL Adrenal panel 04/18/21 Range/Units 05:34 Sodium 134 L (137-145) mmol/L Potassium 3.0 L D (3.6-5.0) mmol/L Chloride 93.5 L (98-107) mmol/L Carbon Dioxide 27 (22-30) mmol/L BUN 42 H (7-17) mg/dL Creatinine 3.1 H (0.6-1.2) mg/dL Glucose 152 H (65-100) mg/dL Calcium 8.5 (8.4-10.2) mg/dL
--- NOTE | 2021-04-18 17:24 | Magnetic Resonance Report ---
MR brain wo con INDICATION / CLINICAL INFORMATION: Confusion TECHNIQUE: Multiplanar, multisequence MR images of the brain were obtained. COMPARISON: None available. FINDINGS: INTRACRANIAL: No restricted diffusion. No hemorrhage. Ventricular caliber is normal. No extra-axial c ollection. No mass. No herniation. Major intracranial vascular flow voids are preserved. Periventric ular and centrum semiovale T2 white matter hyperintensities most consistent with sequela of chronic m icrovascular disease. ORBITS: No significant abnormality of visualized orbits. SINUSES / MASTOIDS: Small bilateral mastoid effusions. Mucosal thickening throughout the paranasal si nuses with air-fluid level seen within the maxillary sinuses. ADDITIONAL FINDINGS: None. IMPRESSION: 1. No acute intracranial abnormality. Signer Name: Bran Lacey MD Signed: 04/18/2021 5:20 PM Workstation Name: [id number]
[2021-04-18] MEDS: D5W/0.9% NACL 1,000 ML IV SCH (18:00)
[2021-04-18] MEDS: cefTRIAXone/NS 1 GM/50 ML 1 GM/50 ML BAG IV SCH (18:00)
[2021-04-18] MEDS: LATANOPROST 0.005% OPHTH SOLN 2.5 ML OU SCH (18:01)
[2021-04-19] MEDS: INSULIN LISPRO 100 UNIT/ML SUB-Q SCH ×4 (00:06→23:33)
[2021-04-19] MEDS: LEVOTHYROXINE 25 MCG TAB PO SCH (05:49)
--- NOTE | 2021-04-19 07:13 | Ultrasound Report ---
ULTRASOUND RENAL INDICATION: Acute renal failure.. COMPARISON: No relevant prior imaging study available. FINDINGS: RIGHT KIDNEY: Size: 10.2 cm. Echogenicity: Increased. Cortical thickness: Moderate thinning, 0.8 cm. Hydronephrosis: None. Cyst or mass: A septated midpole cyst measures 1.7 x 1.6 x 1.4 cm. No solid lesions. Stones: None. LEFT KIDNEY: Size: 10.9 cm. Echogenicity: Increased. Cortical thickness: Mild thinning, 1.2 cm. Hydronephrosis: None. Cyst or mass: None. Stones: None. Urinary Bladder: Drained by a Kerr catheter. Free Fluid: None. Additional Findings: None. IMPRESSION 1. Findings consistent with acute on chronic kidney disease. 2. Mildly complex right renal cyst as above. Signer Name: Сергей Gonzalez MD Signed: 04/19/2021 7:09 AM Workstation Name: [id number]
[2021-04-19 08:00] LABS: Hematocrit 31.4 % (30.3-42.9); Hemoglobin 10.2 gm/dl (10.1-14.3); Mean Corpuscular HGB Conc 33 % (30-34); Mean Corpuscular Volume 98 fl (79-97); Platelet Count 137 K/mm3 (140-440); Red Cell Distribution Width 15.1 % (13.2-15.2)
[2021-04-19] MEDS ORDERED: POTASSIUM CHLORIDE 10 MEQ 10 MEQ/100 ML BAG IV ONE (08:15)
[2021-04-19] MEDS: POTASSIUM CHLORIDE 20 MEQ PACKET FEEDTUBE SCH ×2 (09:08→15:20)
[2021-04-19] MEDS: BRIMONIDINE 0.15% OPHTH SOLN OU SCH ×2 (09:09→21:48)
[2021-04-19] MEDS: HEPARIN 5,000 UNIT/1 ML VIAL SUB-Q SCH ×2 (09:09→22:16)
[2021-04-19] MEDS: FAMOTIDINE 20 MG TAB PO SCH (09:10)
[2021-04-19] MEDS: MODAFINIL 100 MG TAB PO SCH (09:10)
[2021-04-19] MEDS: TIMOLOL 0.5% OPHTH SOLN 5 ML OU SCH (09:10)
[2021-04-19] MEDS: METOPROLOL TARTRATE 25 MG TAB PO SCH ×2 (09:10→21:48)
[2021-04-19] MEDS: INSULIN GLARGINE 100 UNITS/ML SUB-Q SCH (09:11)
--- NOTE | 2021-04-19 09:19 | Progress Note ---
Assessment and Plan 1. Acute kidney injury: Likely vasomotor ROJELIO. ATN likely. Renal US ordered. Baseline renal function is unknown. Monitor renal function. Non-oliguric. Creatinine level is improving. Avoid nephrotoxic agents. Meds dosage based on GFR. 2. FEN: Hypokalemia, replete K, monitor. Hyponatremia, monitor. Salt tablets as needed. Monitor lytes and volume status. 3. Acute hypoxemic respiratory failure: Currently intubated, on vent. 4. Acute encephalopathy: Hypoglycemia. MRI brain negative. 5. Leukocytosis. 6. Hypertension. 7. DM type 2. 8. Mild rhabdomyolysis. Subjective: Patient was not examined today. However the examination findings from other providers noted. The current and previous medical records are reviewed in detail as are laboratory and imaging data reviewed when appropriate. Medications being given are also reviewed. In addition the case has been discussed with the attending hospitalist and the nurse when needed. New renal recommendations as above. Subjective Date of service: 04/19/21 Principal diagnosis: Ac. resp failure; AMS; Hypoglycemia; ROJELIO; Hyperkalemia; DM II Objective - Vital Signs Vital signs: Vital Signs - 12hr 04/18/21 04/18/21 04/18/21 21:21 21:31 21:40 Temperature Pulse Rate 102 H 82 80 Pulse Rate [ From Monitor] Respiratory 19 14 15 Rate Blood Pressure 160/64 160/64 160/64 O2 Sat by Pulse 98 98 99 Oximetry 04/18/21 04/18/21 04/18/21 21:50 22:00 22:11 Temperature Pulse Rate 76 76 75 Pulse Rate [ From Monitor] Respiratory 17 15 12 Rate Blood Pressure 160/64 160/58 160/64 O2 Sat by Pulse 99 99 99 Oximetry 04/18/21 04/18/21 04/18/21 22:21 22:31 22:41 Temperature Pulse Rate 71 67 73 Pulse Rate [ From Monitor] Respiratory 17 14 13 Rate Blood Pressure 160/64 160/64 160/64 O2 Sat by Pulse 99 99 98 Oximetry 04/18/21 04/18/21 04/18/21 22:51 23:01 23:11 Temperature Pulse Rate 74 66 69 Pulse Rate [ From Monitor] Respiratory 21 15 13 Rate Blood Pressure 160/64 130/54 130/54 O2 Sat by Pulse 99 99 99 Oximetry 04/18/21 04/18/21 04/18/21 23:21 23:31 23:41 Temperature Pulse Rate 81 70 69 Pulse Rate [ From Monitor] Respiratory 12 13 18 Rate Blood Pressure 130/54 130/54 130/54 O2 Sat by Pulse 99 99 98 Oximetry 04/18/21 04/18/21 04/19/21 23:42 23:51 00:00 Temperature 100.5 F H Pulse Rate 70 77 Pulse Rate [ 70 From Monitor] Respiratory 13 16 Rate Blood Pressure 130/54 130/44 O2 Sat by Pulse 99 96 Oximetry 04/19/21 04/19/21 04/19/21 00:11 00:13 00:21 Temperature Pulse Rate 70 80 79 Pulse Rate [ From Monitor] Respiratory 14 14 Rate Blood Pressure 130/44 130/44 130/44 O2 Sat by Pulse 99 99 99 Oximetry 04/19/21 04/19/21 04/19/21 00:31 00:41 00:51 Temperature Pulse Rate 77 78 74 Pulse Rate [ From Monitor] Respiratory 12 14 13 Rate Blood Pressure 130/44 130/44 130/44 O2 Sat by Pulse 98 99 98 Oximetry 04/19/21 04/19/21 04/19/21 01:00 01:11 01:21 Temperature Pulse Rate 74 79 74 Pulse Rate [ From Monitor] Respiratory 15 18 18 Rate Blood Pressure 135/36 135/36 135/36 O2 Sat by Pulse 99 100 98 Oximetry 04/19/21 04/19/21 04/19/21 01:31 01:41 01:51 Temperature Pulse Rate 74 79 79 Pulse Rate [ From Monitor] Respiratory 18 20 17 Rate Blood Pressure 135/36 135/36 135/36 O2 Sat by Pulse 99 100 100 Oximetry 04/19/21 04/19/21 04/19/21 02:01 02:11 02:21 Temperature Pulse Rate 68 74 73 Pulse Rate [ From Monitor] Respiratory 14 14 15 Rate Blood Pressure 144/63 144/63 144/63 O2 Sat by Pulse 100 99 99 Oximetry 04/19/21 04/19/21 04/19/21 02:31 02:41 02:51 Temperature Pulse Rate 80 75 70 Pulse Rate [ From Monitor] Respiratory 19 17 13 Rate Blood Pressure 144/63 144/63 144/63 O2 Sat by Pulse 100 100 99 Oximetry 04/19/21 04/19/21 04/19/21 03:00 03:11 03:21 Temperature Pulse Rate 70 76 69 Pulse Rate [ From Monitor] Respiratory 14 16 12 Rate Blood Pressure 152/55 152/55 152/55 O2 Sat by Pulse 100 99 99 Oximetry 04/19/21 04/19/21 04/19/21 03:31 03:41 03:51 Temperature Pulse Rate 82 77 79 Pulse Rate [ From Monitor] Respiratory 18 18 16 Rate Blood Pressure 152/55 152/55 152/55 O2 Sat by Pulse 100 100 100 Oximetry 04/19/21 04/19/21 04/19/21 04:00 04:01 04:11 Temperature Pulse Rate 90 72 Pulse Rate [ 72 From Monitor] Respiratory 18 18 17 Rate Blood Pressure 145/48 145/48 O2 Sat by Pulse 99 99 97 Oximetry 04/19/21 04/19/21 04/19/21 04:21 04:31 04:32 Temperature Pulse Rate 75 83 75 Pulse Rate [ From Monitor] Respiratory 14 15 Rate Blood Pressure 145/48 145/48 145/48 O2 Sat by Pulse 99 99 100 Oximetry 04/19/21 04/19/21 04/19/21 04:41 04:51 05:01 Temperature Pulse Rate 74 74 78 Pulse Rate [ From Monitor] Respiratory 11 L 19 17 Rate Blood Pressure 145/48 145/48 152/59 O2 Sat by Pulse 100 100 99 Oximetry 04/19/21 04/19/21 04/19/21 05:11 05:21 05:31 Temperature Pulse Rate 94 H 91 H 73 Pulse Rate [ From Monitor] Respiratory 13 18 18 Rate Blood Pressure 152/59 152/59 152/59 O2 Sat by Pulse 100 99 99 Oximetry 04/19/21 04/19/21 04/19/21 05:41 05:51 06:01 Temperature Pulse Rate 78 77 78 Pulse Rate [ From Monitor] Respiratory 14 10 L 19 Rate Blood Pressure 152/59 152/59 152/59 O2 Sat by Pulse 100 99 100 Oximetry 04/19/21 04/19/21 04/19/21 06:11 06:21 06:31 Temperature Pulse Rate 71 87 80 Pulse Rate [ From Monitor] Respiratory 18 19 18 Rate Blood Pressure 145/50 145/50 145/50 O2 Sat by Pulse 100 100 100 Oximetry 04/19/21 04/19/21 04/19/21 06:41 06:51 07:00 Temperature 98.6 F Pulse Rate 78 71 Pulse Rate [ From Monitor] Respiratory 18 15 Rate Blood Pressure 145/50 145/50 O2 Sat by Pulse 99 99 Oximetry 04/19/21 04/19/21 04/19/21 07:01 07:11 07:21 Temperature Pulse Rate 76 75 76 Pulse Rate [ From Monitor] Respiratory 18 19 14 Rate Blood Pressure 165/48 165/48 165/48 O2 Sat by Pulse 98 99 99 Oximetry 04/19/21 04/19/21 04/19/21 07:31 07:41 07:51 Temperature Pulse Rate 74 77 76 Pulse Rate [ From Monitor] Respiratory 18 22 20 Rate Blood Pressure 165/48 132/53 132/53 O2 Sat by Pulse 100 99 99 Oximetry 04/19/21 04/19/21 04/19/21 08:00 08:01 08:11 Temperature Pulse Rate 77 83 Pulse Rate [ From Monitor] Respiratory 25 H 19 26 H Rate Blood Pressure 154/54 154/54 O2 Sat by Pulse 98 100 100 Oximetry 04/19/21 04/19/21 04/19/21 08:12 08:16 08:21 Temperature Pulse Rate 79 86 81 Pulse Rate [ From Monitor] Respiratory 22 25 H 25 H Rate Blood Pressure 154/54 154/54 O2 Sat by Pulse 100 99 99 Oximetry 04/19/21 04/19/21 04/19/21 08:31 08:41 08:51 Temperature Pulse Rate 78 101 H 73 Pulse Rate [ From Monitor] Respiratory 25 H 25 H 18 Rate Blood Pressure 154/54 154/54 154/54 O2 Sat by Pulse 99 99 98 Oximetry 04/19/21 04/19/21 09:01 09:11 Temperature Pulse Rate 79 76 Pulse Rate [ From Monitor] Respiratory 21 19 Rate Blood Pressure 154/54 151/58 O2 Sat by Pulse 98 98 Oximetry - Lab 04/19/21 07:30 04/19/21 20:40 Most recent lab results ABG pH 7.476 (7.320-7.450) H 04/19/21 04:09 ABG O2 Saturation 95.9 (0-100) 04/19/21 04:09 Calcium 8.0 mg/dL (8.4-10.2) L 04/19/21 07:30 Magnesium 1.40 mg/dL (1.7-2.3) L 04/18/21 05:43 Urine Creatinine 24.4 mg/dL (0.1-20.0) H 04/16/21 00:12 Urine Sodium 97 mmol/L 04/16/21 00:12 Medications & Allergies - Medications Allergies/Adverse Reactions: Allergies No Known Allergies Allergy (Unverified 04/15/21 17:41) Home Medications: Home Medications Medication Instructions Recorded Confirmed Last Taken Type Betaxolol HCl [Betoptic S 0.25% 1 drop OU BID 04/16/21 04/16/21 Unknown History SUSP] Bimatoprost [Lumigan 0.01%] 1 drop OU QPM 04/16/21 04/16/21 Unknown History Brimonidine Tartrate [Brimonidine 5 ml OU BID 04/16/21 04/16/21 Unknown History Tartrate 0.2%] Furosemide [Lasix TAB] 40 mg PO QDAY 04/16/21 04/16/21 Unknown History Gabapentin [Neurontin] 300 mg PO Q8HR 04/16/21 04/16/21 Unknown History HYDROcodone/APAP 10-325 [[place] 1 each PO Q6HR PRN 04/16/21 04/16/21 Unknown History 10/325] Hydralazine HCl 50 mg PO Q4HR 04/16/21 04/16/21 Unknown History Insulin Aspart Prot/Insuln Asp 52 units SQ HS 04/16/21 04/16/21 Unknown History [Novolog Mix 70-30 Flexpen] Metoprolol [Lopressor] 25 mg PO BID 04/16/21 04/16/21 Unknown History Pravastatin [Pravachol] 20 mg PO QHS 04/16/21 04/16/21 Unknown History Promethazine [Phenergan] 25 mg PO Q6HR 04/16/21 04/16/21 Unknown History allopurinoL [Zyloprim] 150 mg PO QDAY 04/16/21 04/16/21 Unknown History Active Medications: Generic Name Dose Route Start Last Admin Trade Name Freq PRN Reason Stop Dose Admin Acetaminophen 650 mg 04/15/21 19:11 04/17/21 22:13 Acetaminophen 325 Mg Tab PO 650 mg Q6H PRN Administration Pain MILD(1-3)/Fever >100.5/SEXTON Lipase/Protease/Amylase 1 each 04/16/21 12:52 Lipase 10,500/Protease 25,000/Amylase 43,750 (Units) Dr Cap FEEDTUBE PRN PRN For Clogged Feeding Tube Bisacodyl 10 mg 04/17/21 11:01 04/17/21 13:46 Bisacodyl 10 Mg Rect Supp SC 10 mg QDAY PRN Administration Constipation Brimonidine Tartrate 1 drops 04/17/21 22:00 04/19/21 09:09 Brimonidine 0.15% Ophth Soln OU 1 drops BID WOLFGANG Administration Famotidine 20 mg 04/17/21 10:00 04/19/21 09:10 Famotidine 20 Mg Tab PO 20 mg DAILY WOLFGANG Administration Heparin Sodium (Porcine) 5,000 unit 04/15/21 22:00 04/19/21 09:09 Heparin 5,000 Unit/1 Ml Vial SUB-Q 5,000 unit Q12HR WOLFGANG Administration Hydralazine HCl 10 mg 04/16/21 18:00 04/17/21 10:51 Hydralazine 20 Mg/1 Ml Inj IV 10 mg Q4HR PRN Administration Hypertension Hydrophilic Ointment 1 applic 04/15/21 17:24 Lip Therapy Vaseline TP Q2HR PRN Dry Lips Propofol 1,000 mg in 100 mls @ 2.91 mls/hr 04/15/21 18:00 04/18/21 16:00 Diprivan 10 Mg/Ml IV 0 mcg/kg/min TITR WOLFGANG 0 mls/hr Titration Protocol 5 MCG/KG/MIN Ceftriaxone Sodium 1 gm in 50 mls @ 100 mls/hr 04/18/21 15:00 04/18/21 18:00 Rocephin/Ns 1 Gm/50 Ml IV 100 mls/hr Q24H WOLFGANG Administration Protocol Insulin Glargine 5 units 04/19/21 09:00 04/19/21 09:11 Insulin Glargine 100 Units/Ml SUB-Q 5 units QAMDIAB WOLFGANG Administration Insulin Human Lispro 0 unit 04/16/21 15:00 04/19/21 05:49 Insulin Lispro 100 Unit/Ml SUB-Q 3 unit Q6HR WOLFGANG Administration Protocol Latanoprost 1 drops 04/17/21 18:00 04/18/21 18:01 Latanoprost 0.005% Ophth Soln 2.5 Ml OU 1 drops QPM WOLFGANG Administration Levothyroxine Sodium 25 mcg 04/19/21 06:00 04/19/21 05:49 Levothyroxine 25 Mcg Tab PO 25 mcg DAILY@0600 WOLFGANG Administration Metoprolol Tartrate 25 mg 04/19/21 10:00 04/19/21 09:10 Metoprolol Tartrate 25 Mg Tab PO 25 mg BID WOLFGANG Administration Modafinil 100 mg 04/19/21 10:00 04/19/21 09:10 Modafinil 100 Mg Tab PO 100 mg QAM WOLFGANG Administration Multi-Ingred Cream/Lotion/Oil/Oint 1 applic 04/15/21 17:24 04/16/21 11:19 Mineral Oil/Petrolatum, White Ophth Oint 3.5 Gm OU 1 applic Q4HR PRN Administration Dry Eye(s) Potassium Chloride 40 meq 04/19/21 09:00 04/19/21 09:08 Potassium Chloride 20 Meq Packet FEEDTUBE 04/19/21 13:01 40 meq Q4H WOLFGANG Administration Pravastatin Sodium 20 mg 04/19/21 22:00 Pravastatin 20 Mg Tab PO QHS WOLFGANG Simple Syrup 15 ml 04/16/21 12:52 Simple Syrup 15 Ml FEEDTUBE PRN PRN Hypoglycemia Simple Syrup 30 ml 04/16/21 12:52 Simple Syrup 15 Ml FEEDTUBE PRN PRN Hypoglycemia Sodium Bicarbonate 325 mg 04/16/21 12:52 Sodium Bicarbonate 325 Mg Tab FEEDTUBE PRN PRN For Clogged Feeding Tube Sodium Chloride 10 ml 04/15/21 22:00 04/19/21 09:10 Sodium Chloride 0.9% 10 Ml Flush Syringe IV 10 ml BID WOLFGANG Administration Sodium Chloride 10 ml 04/15/21 19:11 Sodium Chloride 0.9% 10 Ml Flush Syringe IV PRN PRN LINE FLUSH Timolol Maleate 1 drops 04/19/21 10:00 04/19/21 09:10 Timolol 0.5% Ophth Soln 5 Ml OU 1 drops QDAY WOLFGANG Administration
[2021-04-19] MEDS ORDERED: NON-FORMULARY EACH (Hydralazine Hcl [Hydralazine Hcl] 50 MG Tablet) PO SCH (10:00)
--- NOTE | 2021-04-19 10:12 | Progress Note ---
Assessment and Plan #Altered mental status * Neurology is consulted for acute CVA versus subclinical seizure activity. EEG is pending * Patient was intubated to protect airway #NSTEMI suspect type II * Troponins are elevated, subacte and nonspecific, trending downward. Continue to trend CE's. * Telemetry reviewed: Sinus rhythm 98 with frequent PACs and PVCs, left bundle branch block. No events * Twelve-lead ECG shows sinus bradycardia heart rate 48 with first-degree AV block and left bundle branch block, no acute ischemic changes. * Echocardiogram reviewed (04/15/2021): LVEF is 45 to 50%. LV SF is borderline. Mild concentric LVH. Paradoxical septal motion consistent with LBBB. Left ventricular diastolic function is indeterminate. No VSD visualized. No ventricle thrombus noted on the study. RV SF is grossly normal. RVSP is 24 mmHg. No valvular abnormalities. #Hypertension * Optimize antihypertensive regimen: Increase metoprolol to 25 mg twice daily. #Acute on chronic renal disease in setting of chronic diabetes * No ACEI/ARB in setting of acute kidney injury. Avoid nephrotoxic agents. Nephrology is following. #Electrolyte derangement * Current labs show developing hypokalemia and hyponatremia. Discussed with director of compliance. Electrolytes being repleted. Management per primary team #DVT prophylaxis * Heparin subQ We will follow This patient was seen in conjunction with Dr Tejeda who agrees with this assessment and plan of care - Patient Problems (1) Acute metabolic encephalopathy due to hypoglycemia Current Visit: Yes Status: Acute (2) Acute hypoxemic respiratory failure Current Visit: Yes Status: Acute (3) Acute kidney injury Current Visit: Yes Status: Acute (4) DVT prophylaxis Current Visit: Yes Status: Acute (5) Diabetes mellitus Current Visit: Yes Status: Chronic (6) STEMI (ST elevation myocardial infarction) Current Visit: Yes Status: Acute Plan to address problem: Suspect type II Subjective Date of service: 04/19/21 Principal diagnosis: Ac. resp failure; AMS; Hypoglycemia; ROJELIO; Hyperkalemia; DM II Interval history: Patient is resting in bed intubated and sedated Telemetry reviewed: Sinus rhythm 98 with frequent PACs and PVCs. No events Objective Vital Signs Last Vital Signs Temp 98.6 F 04/19/21 07:00 Pulse 76 04/19/21 09:11 Resp 19 04/19/21 09:11 BP 151/58 04/19/21 09:11 Pulse Ox 98 04/19/21 09:11 - Physical Examination General: Other (Intubated and sedated) HEENT: Positive: Other (Intubated and sedated) Neck: Positive: neck supple, trachea midline Cardiac: Positive: Reg Rate and Rhythm, S1/S2 Lungs: Positive: Ventilated Respirations (Intubated and sedated) Neuro: Positive: Other (Intubated and sedated) Abdomen: Positive: Unremarkable Skin: Negative: Rash, Wound Musculoskeletal: other (Intubated and sedated) Extremities: Present: upper extr. pulses, lower extr. pulses. Absent: edema - Labs and Meds CBC 04/19/21 Range/Units 07:30 WBC 14.8 H (4.5-11.0) K/mm3 RBC 3.20 L (3.65-5.03) M/mm3 Hgb 10.2 (10.1-14.3) gm/dl Hct 31.4 (30.3-42.9) % Plt Count 137 L (140-440) K/mm3 Comprehensive Metabolic Panel 04/19/21 Range/Units 07:30 Sodium 133 L (137-145) mmol/L Potassium 2.8 L* (3.6-5.0) mmol/L Chloride 94.4 L (98-107) mmol/L Carbon Dioxide 28 (22-30) mmol/L BUN 43 H (7-17) mg/dL Creatinine 2.7 H (0.6-1.2) mg/dL Glucose 255 H (65-100) mg/dL Calcium 8.0 L (8.4-10.2) mg/dL - Imaging and Cardiology EKG: report reviewed, image reviewed Echo: report reviewed - Telemetry EKG Rhythm: Sinus Rhythm - EKG Sinus rhythms and dysrhythmias: sinus rhythm - Allied health notes Allied health notes reviewed: nursing
--- NOTE | 2021-04-19 13:24 | Progress Note ---
Assessment and Plan Acute respiratory failure, on mechanical ventilatory support. Acute toxic metabolic encephalopathy Hypoglycemia ROJELIO Hyperkalemia Rhabdomyolysis Possible seizure activity DM II HTN CAD Obesity H/O breast cancer H/O TIA Leukocytosis Elevated serum TSH, possible hypothyroidism - MRI Brain negative - reduce p-supp to 10 - tentative trial of extubation in am - keep set rate at 10 on MVS - continue Provigil - follow EEG - continue care as below otherwise; - continue to wean supplemental oxygen for target O2 sat's > 90% acutely - VAP bundle addressed - continue lung protective strategies - continue bronchodilators with pulmonary hygiene per RT - continue Daily SAT and SBT assessment as tolerated - wean per pulmonary driven protocols otherwise - continue accuchecks with glycemic control per SSI (While critically ill target blood glucose of 140-180 mg/dL; avoid hypoglycemia) - sedation prn for target RASS 0 to -1 - avoid nephrotoxins, renally dose all medications - continue to avoid benzodiazepine's, reduce the possibility of delirium - follow clinically off AB's; trend fevers / WBC - prn analgesia per CPOT score - Maintenance of sleep-wake cycle, avoid delirium - continue enteral nutritional support at goal rate as tolerated - G.I. & VTE prophylaxis - PT/OT/ROM exercises - continue mobility protocols for pressure ulcer prophylaxis - Monitor hemodynamics closely - continue other care per attending / other consultants - discharge planning ongoing concurrently .... Re-evaluate in am & prn CONDITION: CRITICAL PROGNOSIS: GUARDED CODE STATUS: FULL CODE The high probability of a clinically significant, sudden or life-threatening deterioration of the [respiratory, cardiovascular, GI & neurologic] system(s) required my full and direct attention, intervention and personal management. The aggregate critical care time was [34] minutes without overlap. Time includes spent on; [x] Data Review and interpretation [x] Patient assessment and monitoring of vital signs [x] Documentation [x] Medication orders and management Subjective Date of service: 04/19/21 Principal diagnosis: Ac. resp failure; AMS; Hypoglycemia; ROJELIO; Hyperkalemia; DM II Interval history: Patient is seen today for: Acute respiratory failure; AMS; Hypoglycemia; ROJELIO; Hyperkalemia; DM II; H/O breast cancer; Elevated serum TSH, possible hypothyroidism Seen and examined at bedside; 24hour events reviewed; nursing and respiratory care staff consulted; no adverse overnight events reported to me; resting peacefully in bed; a little more alert but not following prompts; tolerating tube feeds well now; no emesis or overt aspiration; on SBT via PSV with p-supp at 12 and tolerating well Objective Vital Signs - 12hr 04/19/21 04/19/21 04/19/21 01:21 01:31 01:41 Temperature Pulse Rate 74 74 79 Pulse Rate [ From Monitor] Respiratory 18 18 20 Rate Blood Pressure 135/36 135/36 135/36 O2 Sat by Pulse 98 99 100 Oximetry 04/19/21 04/19/21 04/19/21 01:51 02:01 02:11 Temperature Pulse Rate 79 68 74 Pulse Rate [ From Monitor] Respiratory 17 14 14 Rate Blood Pressure 135/36 144/63 144/63 O2 Sat by Pulse 100 100 99 Oximetry 04/19/21 04/19/21 04/19/21 02:21 02:31 02:41 Temperature Pulse Rate 73 80 75 Pulse Rate [ From Monitor] Respiratory 15 19 17 Rate Blood Pressure 144/63 144/63 144/63 O2 Sat by Pulse 99 100 100 Oximetry 04/19/21 04/19/21 04/19/21 02:51 03:00 03:11 Temperature Pulse Rate 70 70 76 Pulse Rate [ From Monitor] Respiratory 13 14 16 Rate Blood Pressure 144/63 152/55 152/55 O2 Sat by Pulse 99 100 99 Oximetry 04/19/21 04/19/21 04/19/21 03:21 03:31 03:41 Temperature Pulse Rate 69 82 77 Pulse Rate [ From Monitor] Respiratory 12 18 18 Rate Blood Pressure 152/55 152/55 152/55 O2 Sat by Pulse 99 100 100 Oximetry 04/19/21 04/19/21 04/19/21 03:51 04:00 04:01 Temperature Pulse Rate 79 90 72 Pulse Rate [ 72 From Monitor] Respiratory 16 18 18 Rate Blood Pressure 152/55 145/48 O2 Sat by Pulse 100 99 99 Oximetry 04/19/21 04/19/21 04/19/21 04:11 04:21 04:31 Temperature Pulse Rate 75 83 Pulse Rate [ From Monitor] Respiratory 17 14 15 Rate Blood Pressure 145/48 145/48 145/48 O2 Sat by Pulse 97 99 99 Oximetry 04/19/21 04/19/21 04/19/21 04:32 04:41 04:51 Temperature Pulse Rate 75 74 74 Pulse Rate [ From Monitor] Respiratory 11 L 19 Rate Blood Pressure 145/48 145/48 145/48 O2 Sat by Pulse 100 100 100 Oximetry 04/19/21 04/19/21 04/19/21 05:01 05:11 05:21 Temperature Pulse Rate 78 94 H 91 H Pulse Rate [ From Monitor] Respiratory 17 13 18 Rate Blood Pressure 152/59 152/59 152/59 O2 Sat by Pulse 99 100 99 Oximetry 04/19/21 04/19/21 04/19/21 05:31 05:41 05:51 Temperature Pulse Rate 73 78 77 Pulse Rate [ From Monitor] Respiratory 18 14 10 L Rate Blood Pressure 152/59 152/59 152/59 O2 Sat by Pulse 99 100 99 Oximetry 04/19/21 04/19/21 04/19/21 06:01 06:11 06:21 Temperature Pulse Rate 78 71 87 Pulse Rate [ From Monitor] Respiratory 19 18 19 Rate Blood Pressure 152/59 145/50 145/50 O2 Sat by Pulse 100 100 100 Oximetry 04/19/21 04/19/21 04/19/21 06:31 06:41 06:51 Temperature Pulse Rate 80 78 71 Pulse Rate [ From Monitor] Respiratory 18 18 15 Rate Blood Pressure 145/50 145/50 145/50 O2 Sat by Pulse 100 99 99 Oximetry 04/19/21 04/19/21 04/19/21 07:00 07:01 07:11 Temperature 98.6 F Pulse Rate 76 75 Pulse Rate [ From Monitor] Respiratory 18 19 Rate Blood Pressure 165/48 165/48 O2 Sat by Pulse 98 99 Oximetry 04/19/21 04/19/21 04/19/21 07:21 07:31 07:41 Temperature Pulse Rate 76 74 77 Pulse Rate [ From Monitor] Respiratory 14 18 22 Rate Blood Pressure 165/48 165/48 132/53 O2 Sat by Pulse 99 100 99 Oximetry 04/19/21 04/19/21 04/19/21 07:51 08:00 08:01 Temperature Pulse Rate 76 77 Pulse Rate [ From Monitor] Respiratory 20 25 H 19 Rate Blood Pressure 132/53 154/54 O2 Sat by Pulse 99 98 100 Oximetry 04/19/21 04/19/21 04/19/21 08:11 08:12 08:16 Temperature Pulse Rate 83 79 86 Pulse Rate [ From Monitor] Respiratory 26 H 22 25 H Rate Blood Pressure 154/54 154/54 O2 Sat by Pulse 100 100 99 Oximetry 04/19/21 04/19/21 04/19/21 08:21 08:31 08:41 Temperature Pulse Rate 81 78 101 H Pulse Rate [ From Monitor] Respiratory 25 H 25 H 25 H Rate Blood Pressure 154/54 154/54 154/54 O2 Sat by Pulse 99 99 99 Oximetry 04/19/21 04/19/21 04/19/21 08:51 09:01 09:11 Temperature Pulse Rate 73 79 76 Pulse Rate [ From Monitor] Respiratory 18 21 19 Rate Blood Pressure 154/54 154/54 151/58 O2 Sat by Pulse 98 98 98 Oximetry 04/19/21 04/19/21 04/19/21 09:21 09:31 09:41 Temperature Pulse Rate 104 H 73 80 Pulse Rate [ From Monitor] Respiratory 21 19 19 Rate Blood Pressure 151/58 151/58 151/58 O2 Sat by Pulse 100 98 99 Oximetry 04/19/21 04/19/21 04/19/21 09:51 10:01 10:11 Temperature Pulse Rate 73 72 69 Pulse Rate [ From Monitor] Respiratory 18 21 19 Rate Blood Pressure 151/58 159/75 159/75 O2 Sat by Pulse 99 99 99 Oximetry 04/19/21 04/19/21 04/19/21 10:21 10:31 10:41 Temperature Pulse Rate 73 77 74 Pulse Rate [ From Monitor] Respiratory 16 23 28 H Rate Blood Pressure 159/75 159/75 159/75 O2 Sat by Pulse 100 99 100 Oximetry 04/19/21 04/19/21 04/19/21 10:51 11:01 11:11 Temperature Pulse Rate 77 78 74 Pulse Rate [ From Monitor] Respiratory 17 27 H 21 Rate Blood Pressure 159/75 143/67 143/67 O2 Sat by Pulse 99 100 99 Oximetry 04/19/21 04/19/21 04/19/21 11:21 11:31 11:41 Temperature Pulse Rate 79 70 70 Pulse Rate [ From Monitor] Respiratory 26 H 17 18 Rate Blood Pressure 143/67 143/67 143/67 O2 Sat by Pulse 100 99 99 Oximetry 04/19/21 04/19/21 04/19/21 11:51 12:00 12:01 Temperature 99.7 F H Pulse Rate 81 Pulse Rate [ From Monitor] Respiratory 21 Rate Blood Pressure 143/67 143/67 O2 Sat by Pulse 100 100 Oximetry 04/19/21 12:24 Temperature Pulse Rate 90 Pulse Rate [ From Monitor] Respiratory 22 Rate Blood Pressure 139/73 O2 Sat by Pulse 99 Oximetry Constitutional: no acute distress, other (elderly obese female with mildly increased respiratory effort at rest on MVS) Eyes: non-icteric ENT: oropharynx moist, other (ETT 23 cm RICARDO) Neck: supple, no lymphadenopathy, no JVD Effort: mildly labored Ascultation: Bilateral: clear, diminished breath sounds Percussion: Bilateral: not dull Cardiovascular: regular rate and rhythm Gastrointestinal: normoactive bowel sounds, soft, non-tender, non-distended (protuberant), other (NGT to LIS) Integumentary: normal Extremities: no cyanosis, no edema, pulses normal, no ischemia or petechiae Neurologic: non-focal exam (grossly with intermittent spontaneous movement to extremities but ? mild posturing (decerebrate)) Psychiatric: other (unable to assess re: AMS) CBC and BMP: 04/19/21 07:30 04/19/21 07:30 ABG, PT/INR, D-dimer: ABG ABG pH 7.476 (7.320-7.450) H 04/19/21 04:09 POC ABG pCO2 42.4 mmHg (32.0-48.0) 04/19/21 04:09 POC ABG pO2 79.4 mmHg (83-108) L 04/19/21 04:09 POC ABG HCO3 30.6 04/19/21 04:09 ABG O2 Saturation 95.9 (0-100) 04/19/21 04:09 PT/INR, D-dimer PT 12.2 Sec. (12.2-14.9) 04/15/21 17:20 INR 0.91 (0.87-1.13) 04/15/21 17:20 Abnormal lab findings: Abnormal Labs 04/15/21 04/15/21 04/15/21 17:20 17:20 17:20 WBC 11.2 H RBC Hct 43.0 H MCV RDW 15.3 H Plt Count Lymph % (Auto) 12.8 L Seg Neutrophils % 82.4 H Seg Neuts % (Manual) Lymphocytes % (Manual) Monocytes % (Manual) Seg Neutrophils # 9.3 H Seg Neutrophils # Man Lymphocytes # (Manual) Monocytes # (Manual) ABG pH POC ABG pCO2 POC ABG pO2 ABG Hemoglobin ABG Oxyhemoglobin ABG Sodium ABG Potassium ABG Chloride ABG Glucose Carboxyhemoglobin Sodium 129 L Potassium 7.1 H* Chloride 91.9 L BUN 35 H Creatinine 2.8 H Glucose POC Glucose Calcium Magnesium AST 69 H Total Creatine Kinase 1000 H CK-MB (CK-2) Troponin T Albumin HDL Cholesterol TSH Arterial Blood Glucose Arterial Blood Ionized Calcium Urine pH Urine WBC (Auto) Urine Creatinine Acetaminophen 04/15/21 04/15/21 04/15/21 17:20 17:20 20:49 WBC RBC Hct MCV RDW Plt Count Lymph % (Auto) Seg Neutrophils % Seg Neuts % (Manual) Lymphocytes % (Manual) Monocytes % (Manual) Seg Neutrophils # Seg Neutrophils # Man Lymphocytes # (Manual) Monocytes # (Manual) ABG pH 7.557 H POC ABG pCO2 30.0 L POC ABG pO2 493.3 H ABG Hemoglobin ABG Oxyhemoglobin 99.0 H ABG Sodium 131.5 L ABG Potassium 4.7 H ABG Chloride 94.0 L ABG Glucose 218 H Carboxyhemoglobin Sodium Potassium Chloride BUN Creatinine Glucose POC Glucose Calcium Magnesium AST Total Creatine Kinase CK-MB (CK-2) Troponin T Albumin HDL Cholesterol TSH 14.190 H Arterial Blood Glucose 218 H Arterial Blood Ionized Calcium 5.4 H Urine pH Urine WBC (Auto) Urine Creatinine Acetaminophen 5.0 L 04/15/21 04/15/21 04/16/21 21:23 23:15 00:09 WBC RBC Hct MCV RDW Plt Count Lymph % (Auto) Seg Neutrophils % Seg Neuts % (Manual) Lymphocytes % (Manual) Monocytes % (Manual) Seg Neutrophils # Seg Neutrophils # Man Lymphocytes # (Manual) Monocytes # (Manual) ABG pH POC ABG pCO2 POC ABG pO2 ABG Hemoglobin ABG Oxyhemoglobin ABG Sodium ABG Potassium ABG Chloride ABG Glucose Carboxyhemoglobin Sodium Potassium Chloride BUN Creatinine Glucose POC Glucose 173 H 207 H Calcium Magnesium AST Total Creatine Kinase CK-MB (CK-2) Troponin T Albumin HDL Cholesterol TSH Arterial Blood Glucose Arterial Blood Ionized Calcium Urine pH 9.0 H Urine WBC (Auto) Urine Creatinine Acetaminophen 04/16/21 04/16/21 04/16/21 00:12 00:19 03:43 WBC RBC Hct MCV RDW Plt Count Lymph % (Auto) Seg Neutrophils % Seg Neuts % (Manual) Lymphocytes % (Manual) Monocytes % (Manual) Seg Neutrophils # Seg Neutrophils # Man Lymphocytes # (Manual) Monocytes # (Manual) ABG pH 7.461 H POC ABG pCO2 POC ABG pO2 ABG Hemoglobin ABG Oxyhemoglobin ABG Sodium 126.8 L ABG Potassium 5.4 H ABG Chloride 90.0 L ABG Glucose 325 H Carboxyhemoglobin Sodium Potassium 6.7 H* Chloride BUN Creatinine Glucose POC Glucose Calcium Magnesium AST Total Creatine Kinase CK-MB (CK-2) Troponin T Albumin HDL Cholesterol TSH Arterial Blood Glucose 325 H Arterial Blood Ionized Calcium Urine pH Urine WBC (Auto) Urine Creatinine 24.4 H Acetaminophen 04/16/21 04/16/21 04/16/21 03:55 05:02 05:02 WBC 21.2 H RBC Hct 43.4 H MCV 98 H RDW Plt Count Lymph % (Auto) Seg Neutrophils % Seg Neuts % (Manual) 84.0 H Lymphocytes % (Manual) 2.0 L Monocytes % (Manual) 10.0 H Seg Neutrophils # Seg Neutrophils # Man 17.8 H Lymphocytes # (Manual) 0.4 L Monocytes # (Manual) 2.1 H ABG pH POC ABG pCO2 POC ABG pO2 ABG Hemoglobin ABG Oxyhemoglobin ABG Sodium ABG Potassium ABG Chloride ABG Glucose Carboxyhemoglobin Sodium 131 L Potassium 5.9 H Chloride 88.7 L BUN 34 H Creatinine 2.9 H Glucose 249 H POC Glucose 391 H Calcium 10.4 H Magnesium AST 65 H Total Creatine Kinase CK-MB (CK-2) Troponin T Albumin 3.8 L HDL Cholesterol TSH Arterial Blood Glucose Arterial Blood Ionized Calcium Urine pH Urine WBC (Auto) Urine Creatinine Acetaminophen 04/16/21 04/16/21 04/16/21 11:34 16:09 18:15 WBC RBC Hct MCV RDW Plt Count Lymph % (Auto) Seg Neutrophils % Seg Neuts % (Manual) Lymphocytes % (Manual) Monocytes % (Manual) Seg Neutrophils # Seg Neutrophils # Man Lymphocytes # (Manual) Monocytes # (Manual) ABG pH POC ABG pCO2 POC ABG pO2 ABG Hemoglobin ABG Oxyhemoglobin ABG Sodium ABG Potassium ABG Chloride ABG Glucose Carboxyhemoglobin Sodium Potassium Chloride BUN Creatinine Glucose POC Glucose 382 H 300 H 287 H Calcium Magnesium AST Total Creatine Kinase CK-MB (CK-2) Troponin T Albumin HDL Cholesterol TSH Arterial Blood Glucose Arterial Blood Ionized Calcium Urine pH Urine WBC (Auto) Urine Creatinine Acetaminophen 04/16/21 04/16/21 04/16/21 19:01 19:01 23:48 WBC RBC Hct MCV RDW Plt Count Lymph % (Auto) Seg Neutrophils % Seg Neuts % (Manual) Lymphocytes % (Manual) Monocytes % (Manual) Seg Neutrophils # Seg Neutrophils # Man Lymphocytes # (Manual) Monocytes # (Manual) ABG pH POC ABG pCO2 POC ABG pO2 ABG Hemoglobin ABG Oxyhemoglobin ABG Sodium ABG Potassium ABG Chloride ABG Glucose Carboxyhemoglobin Sodium 125 L Potassium 5.5 H 5.6 H Chloride 84.5 L BUN 37 H Creatinine 3.5 H Glucose 236 H POC Glucose 243 H Calcium Magnesium AST Total Creatine Kinase CK-MB (CK-2) Troponin T Albumin HDL Cholesterol TSH Arterial Blood Glucose Arterial Blood Ionized Calcium Urine pH Urine WBC (Auto) Urine Creatinine Acetaminophen 04/17/21 04/17/21 04/17/21 03:09 05:04 06:14 WBC RBC Hct MCV RDW Plt Count Lymph % (Auto) Seg Neutrophils % Seg Neuts % (Manual) Lymphocytes % (Manual) Monocytes % (Manual) Seg Neutrophils # Seg Neutrophils # Man Lymphocytes # (Manual) Monocytes # (Manual) ABG pH 7.518 H POC ABG pCO2 POC ABG pO2 ABG Hemoglobin ABG Oxyhemoglobin ABG Sodium 126.4 L ABG Potassium ABG Chloride 89.0 L ABG Glucose 200 H Carboxyhemoglobin Sodium 129 L Potassium Chloride 86.1 L BUN 39 H Creatinine 3.5 H Glucose 202 H POC Glucose 208 H Calcium Magnesium AST Total Creatine Kinase 750 H CK-MB (CK-2) Troponin T 0.119 H* D Albumin HDL Cholesterol 61 H TSH Arterial Blood Glucose 200 H Arterial Blood Ionized Calcium 4.4 L Urine pH Urine WBC (Auto) Urine Creatinine Acetaminophen 04/17/21 04/17/21 04/17/21 11:55 15:35 15:35 WBC 17.1 H RBC Hct MCV RDW Plt Count Lymph % (Auto) Seg Neutrophils % Seg Neuts % (Manual) Lymphocytes % (Manual) Monocytes % (Manual) Seg Neutrophils # Seg Neutrophils # Man Lymphocytes # (Manual) Monocytes # (Manual) ABG pH POC ABG pCO2 POC ABG pO2 ABG Hemoglobin ABG Oxyhemoglobin ABG Sodium ABG Potassium ABG Chloride ABG Glucose Carboxyhemoglobin Sodium Potassium Chloride BUN Creatinine Glucose POC Glucose 276 H Calcium Magnesium AST Total Creatine Kinase 615 H CK-MB (CK-2) 9.1 H Troponin T Albumin HDL Cholesterol TSH Arterial Blood Glucose Arterial Blood Ionized Calcium Urine pH Urine WBC (Auto) Urine Creatinine Acetaminophen 04/17/21 04/18/21 04/18/21 17:07 00:01 03:00 WBC RBC Hct MCV RDW Plt Count Lymph % (Auto) Seg Neutrophils % Seg Neuts % (Manual) Lymphocytes % (Manual) Monocytes % (Manual) Seg Neutrophils # Seg Neutrophils # Man Lymphocytes # (Manual) Monocytes # (Manual) ABG pH 7.497 H POC ABG pCO2 POC ABG pO2 77.7 L ABG Hemoglobin 10.4 L ABG Oxyhemoglobin ABG Sodium 129.7 L ABG Potassium 2.8 L ABG Chloride 92.0 L ABG Glucose 134 H Carboxyhemoglobin 0.3 L Sodium Potassium Chloride BUN Creatinine Glucose POC Glucose 148 H 192 H Calcium Magnesium AST Total Creatine Kinase CK-MB (CK-2) Troponin T Albumin HDL Cholesterol TSH Arterial Blood Glucose 134 H Arterial Blood Ionized Calcium 4.3 L Urine pH Urine WBC (Auto) Urine Creatinine Acetaminophen 04/18/21 04/18/21 04/18/21 05:24 05:34 05:34 WBC 15.3 H RBC 3.34 L Hct MCV RDW 15.3 H Plt Count Lymph % (Auto) Seg Neutrophils % Seg Neuts % (Manual) Lymphocytes % (Manual) Monocytes % (Manual) Seg Neutrophils # Seg Neutrophils # Man Lymphocytes # (Manual) Monocytes # (Manual) ABG pH POC ABG pCO2 POC ABG pO2 ABG Hemoglobin ABG Oxyhemoglobin ABG Sodium ABG Potassium ABG Chloride ABG Glucose Carboxyhemoglobin Sodium 134 L Potassium 3.0 L D Chloride 93.5 L BUN 42 H Creatinine 3.1 H Glucose 152 H POC Glucose 162 H Calcium Magnesium AST Total Creatine Kinase 427 H CK-MB (CK-2) Troponin T 0.081 H D Albumin HDL Cholesterol TSH Arterial Blood Glucose Arterial Blood Ionized Calcium Urine pH Urine WBC (Auto) Urine Creatinine Acetaminophen 04/18/21 04/18/21 04/18/21 05:43 09:11 11:34 WBC RBC Hct MCV RDW Plt Count Lymph % (Auto) Seg Neutrophils % Seg Neuts % (Manual) Lymphocytes % (Manual) Monocytes % (Manual) Seg Neutrophils # Seg Neutrophils # Man Lymphocytes # (Manual) Monocytes # (Manual) ABG pH POC ABG pCO2 POC ABG pO2 ABG Hemoglobin ABG Oxyhemoglobin ABG Sodium ABG Potassium ABG Chloride ABG Glucose Carboxyhemoglobin Sodium Potassium Chloride BUN Creatinine Glucose POC Glucose 170 H Calcium Magnesium 1.40 L AST Total Creatine Kinase CK-MB (CK-2) Troponin T Albumin HDL Cholesterol TSH Arterial Blood Glucose Arterial Blood Ionized Calcium Urine pH Urine WBC (Auto) 34.0 H Urine Creatinine Acetaminophen 04/18/21 04/18/21 04/19/21 17:24 23:18 04:09 WBC RBC Hct MCV RDW Plt Count Lymph % (Auto) Seg Neutrophils % Seg Neuts % (Manual) Lymphocytes % (Manual) Monocytes % (Manual) Seg Neutrophils # Seg Neutrophils # Man Lymphocytes # (Manual) Monocytes # (Manual) ABG pH 7.476 H POC ABG pCO2 POC ABG pO2 79.4 L ABG Hemoglobin 10.7 L ABG Oxyhemoglobin ABG Sodium 131.2 L ABG Potassium 2.8 L ABG Chloride 94.0 L ABG Glucose 209 H Carboxyhemoglobin 0.3 L Sodium Potassium Chloride BUN Creatinine Glucose POC Glucose 151 H 182 H Calcium Magnesium AST Total Creatine Kinase CK-MB (CK-2) Troponin T Albumin HDL Cholesterol TSH Arterial Blood Glucose 209 H Arterial Blood Ionized Calcium Urine pH Urine WBC (Auto) Urine Creatinine Acetaminophen 04/19/21 04/19/21 04/19/21 05:19 07:30 07:30 WBC 14.8 H RBC 3.20 L Hct MCV 98 H RDW Plt Count 137 L Lymph % (Auto) Seg Neutrophils % Seg Neuts % (Manual) Lymphocytes % (Manual) Monocytes % (Manual) Seg Neutrophils # Seg Neutrophils # Man Lymphocytes # (Manual) Monocytes # (Manual) ABG pH POC ABG pCO2 POC ABG pO2 ABG Hemoglobin ABG Oxyhemoglobin ABG Sodium ABG Potassium ABG Chloride ABG Glucose Carboxyhemoglobin Sodium 133 L Potassium 2.8 L* Chloride 94.4 L BUN 43 H Creatinine 2.7 H Glucose 255 H POC Glucose 204 H Calcium 8.0 L Magnesium AST Total Creatine Kinase CK-MB (CK-2) Troponin T 0.060 H D Albumin HDL Cholesterol TSH Arterial Blood Glucose Arterial Blood Ionized Calcium Urine pH Urine WBC (Auto) Urine Creatinine Acetaminophen 04/19/21 11:48 WBC RBC Hct MCV RDW Plt Count Lymph % (Auto) Seg Neutrophils % Seg Neuts % (Manual) Lymphocytes % (Manual) Monocytes % (Manual) Seg Neutrophils # Seg Neutrophils # Man Lymphocytes # (Manual) Monocytes # (Manual) ABG pH POC ABG pCO2 POC ABG pO2 ABG Hemoglobin ABG Oxyhemoglobin ABG Sodium ABG Potassium ABG Chloride ABG Glucose Carboxyhemoglobin Sodium Potassium Chloride BUN Creatinine Glucose POC Glucose 208 H Calcium Magnesium AST Total Creatine Kinase CK-MB (CK-2) Troponin T Albumin HDL Cholesterol TSH Arterial Blood Glucose Arterial Blood Ionized Calcium Urine pH Urine WBC (Auto) Urine Creatinine Acetaminophen Allied health notes reviewed: nursing
--- NOTE | 2021-04-19 13:40 | Progress Note ---
Assessment and Plan Assessment and plan: This is a 80-year-old female with HTN, DM, [place], breast CA s/p double mastectomy, TIA who presented with hypoglycemia, AMS who was admitted with SIRS, symptomatic bradycardia, acute metabolic encephalopathy, acute hypoxic respiratory failure, elevated TSH, hyperglycemia, hyponatremia, hypokalemia, ROJELIO and rhabdomyolysis Acute metabolic encephalopathy Acute hypoxic respiratory failure Hypoglycemia, resolved First-degree heart block Resolved ileus versus mechanical obstruction Acute kidney injury Hyponatremia Hypochloremia Hypokalemia Hypomagnesemia Leukocytosis Possible seizure activity Elevated TSH Mild rhabdomyolysis Hypertension Diabetes mellitus CAD Obesity -[facility], cardiology, nephrology, neurology, nutrition consulted, appreciate recommendations -04/15 CT head shows age-related atrophic change, chronic small vessel ischemic change, no CT evidence of acute large vessel territory ischemic injury, hemorrhage or mass -04/15 echocardiogram shows left ventricular systolic function borderline, LVEF 45 to 50%, mild concentric LVH, paradoxical septal motion consistent with left bundle branch block with no clot identified in the left ventricle, calcified aortic valve without regurgitation or stenosis, trace MR, trace TR, no AL, RVSP is 24 mmHg -04/17 KUB shows gas-filled and dilated loops of small bowel noted over the upper abdomen largest measuring 5 cm concerning for ileus versus mechanical obstruction -04/18 KUB shows interval resolution of previously seen small bowel dilation -04/18 EEG pending -04/19 MRI brain shows no restricted diffusion, no hemorrhage,, no radiation, findings consistent with chronic microvascular disease, small bilateral mastoid effusions, mucosal thickening throughout the paranasal sinuses seen within the maxillary sinuses -S/p antibiotic therapy x1 -S/p D10 gtt -Accu-Cheks every 6, SSI -Resume TF -D5W gtt per nephrology -S/p IV calcium gluconate, regular insulin, D50 -S/p transcutaneous pacing, intermittent demand pacer in place -Renal ultrasound pending -Avoid ACEi/ARB in setting of ROJELIO -Avoid AV arron blocking agents -Avoid nephrotoxic agents and renally dose medications -Low-dose beta-angel -VAP bundle, wean mechanical ventilation as tolerated -TSH 14.1, T4 4.1, T3 pending-started on levothyroxine -Blood pressure monitoring per protocol -IV hydralazine as needed -Provegil -Trend CBC, BMP, CK DVT/GI prophylaxis: Heparin subcu, PPI, SCDs to bilateral lower extremities while in bed Disposition: ICU The high probability of a clinically significant, sudden or life threatening deterioration of the [multi] system(s) required my full and direct attention, intervention and personal management. The aggregate critical care time was [35] minutes. This time is in addition to time spent performing reported procedures but includes the following: [x] Data Review and interpretation [x] Patient assessment and monitoring of vital signs [x] Documentation [x] Medication orders and management History Interval history: This is a 80-year-old female with hypertension, diabetes mellitus, [place], breast cancer s/p double mastectomy, and a TIA who presented with hypoglycemia and altered mental status on 04/15 via EMS. Per EMS patient was unresponsive on their arrival and her blood glucose was 38 and she received 1 amp of dextrose patient continued to be unresponsive and only moaned with her eyes deviating to the left. Work-up in the emergency department revealed SIRS, symptomatic bradycardia, acute metabolic encephalopathy, acute hypoxic respiratory failure, elevated TSH, hyperglycemia, hyponatremia, hyperkalemia, acute kidney injury with ATN, and rhabdomyolysis 04/16: Neurology consulted, COVID-19 PCR negative, D10 drip decreased and eventually discontinued by [facility] and started on D5W for 1 L. Hydralazine as needed. Patient had hyper kalemia today and was treated with D50, insulin and Kayexalate. This time examination patient is on assist control tidal volume 450, rate of 16, PEEP of 6 and 25% FiO2. 04/17: Patient started on low-dose beta-angel per cardiology, CPAP trial again per CCM, BUN/creatinine holding steady and hypochloremia/hyponatremia slightly improved and hypokalemia has resolved. This morning a KUB was obtained which was concerning for ileus versus mechanical obstruction and surgery was consulted. Patient was made n.p.o. and NG tube placed to wall suction. Patient was given suppository. Per RN patient did not have a BM even though she was given Kayexalate yesterday. Will obtain a KUB in the a.m. Neurology was consulted yesterday and will await further recommendations. Nephew updated at bedside today, Carlos Romero. 04/18: Neurology has ordered EEG/MRI B, [facility] continues to wean MV. Persistent low grade temperature so we will obtain BCx2/UA. Patient has improving leukocytosis, hyponatremia, renal function studies and hypochloremia. She has hypokalemia today which is being repleted. Surgery has signed off today and has okayed resumption of TF. [facility] will trial CPAP for longer today and plans to attempt extubation in AM. Family has requested transfer to [place] and Dr. Gordon will attempt to contact transfer center. I updated her nephew, Carlos Romero over the phone today abouyt current events and update on transfer ([place] will conduct a utilization review) 04/19: This morning patient is on CPAP trial at the time of examination, noted to be hypertensive and metoprolol increased to home dose, started on synthroid by [facility], lantus started re hyperglycemia, MRI completed with no acute findings. Severe hypokalemia (repleted and Mg pending). [facility] will contact CPAP trial again today with possible trial extubation tomorrow. Hospitalist Physical - Constitutional Vitals: Temp Pulse Resp BP Pulse Ox 98.6 F 76 19 151/58 98 04/19/21 07:00 04/19/21 09:11 04/19/21 09:11 04/19/21 09:11 04/19/21 09:11 General appearance: Present: no acute distress, other (sedated) HEART Score - HEART Score Troponin: Troponin T 0.060 ng/mL (0.00-0.029) H D 04/19/21 07:30 Results - Labs CBC & Chem 7: 04/19/21 07:30 04/19/21 07:30 Labs: Laboratory Last Values WBC 14.8 K/mm3 (4.5-11.0) H 04/19/21 07:30 RBC 3.20 M/mm3 (3.65-5.03) L 04/19/21 07:30 Hgb 10.2 gm/dl (10.1-14.3) 04/19/21 07:30 Hct 31.4 % (30.3-42.9) 04/19/21 07:30 MCV 98 fl (79-97) H 04/19/21 07:30 MCH 32 pg (28-32) 04/19/21 07:30 MCHC 33 % (30-34) 04/19/21 07:30 RDW 15.1 % (13.2-15.2) 04/19/21 07:30 Plt Count 137 K/mm3 (140-440) L 04/19/21 07:30 Lymph % (Auto) 12.8 % (13.4-35.0) L 04/15/21 17:20 [place] % (Auto) 4.1 % (0.0-7.3) 04/15/21 17:20 Eos % (Auto) 0.3 % (0.0-4.3) 04/15/21 17:20 Baso % (Auto) 0.4 % (0.0-1.8) 04/15/21 17:20 Lymph # (Auto) 1.4 K/mm3 (1.2-5.4) 04/15/21 17:20 [place] # (Auto) 0.5 K/mm3 (0.0-0.8) 04/15/21 17:20 Eos # (Auto) 0.0 K/mm3 (0.0-0.4) 04/15/21 17:20 Baso # (Auto) 0.0 K/mm3 (0.0-0.1) 04/15/21 17:20 Add Manual Diff Complete 04/16/21 05:02 Total Counted 100 04/16/21 05:02 Seg Neutrophils % 82.4 % (40.0-70.0) H 04/15/21 17:20 Seg Neuts % (Manual) 84.0 % (40.0-70.0) H 04/16/21 05:02 Band Neutrophils % 3.0 % 04/16/21 05:02 Lymphocytes % (Manual) 2.0 % (13.4-35.0) L 04/16/21 05:02 Monocytes % (Manual) 10.0 % (0.0-7.3) H 04/16/21 05:02 Metamyelocytes % 1.0 % 04/16/21 05:02 Nucleated RBC % Not Reportable 04/16/21 05:02 Seg Neutrophils # 9.3 K/mm3 (1.8-7.7) H 04/15/21 17:20 Seg Neutrophils # Man 17.8 K/mm3 (1.8-7.7) H 04/16/21 05:02 Band Neutrophils # 0.6 K/mm3 04/16/21 05:02 Lymphocytes # (Manual) 0.4 K/mm3 (1.2-5.4) L 04/16/21 05:02 Abs React Lymphs (Man) 0.0 K/mm3 04/16/21 05:02 Monocytes # (Manual) 2.1 K/mm3 (0.0-0.8) H 04/16/21 05:02 Eosinophils # (Manual) 0.0 K/mm3 (0.0-0.4) 04/16/21 05:02 Basophils # (Manual) 0.0 K/mm3 (0.0-0.1) 04/16/21 05:02 Metamyelocytes # 0.2 K/mm3 04/16/21 05:02 Myelocytes # 0.0 K/mm3 04/16/21 05:02 Promyelocytes # 0.0 K/mm3 04/16/21 05:02 Blast Cells # 0.0 K/mm3 04/16/21 05:02 WBC Morphology Not Reportable 04/16/21 05:02 Hypersegmented Neuts Not Reportable 04/16/21 05:02 Hyposegmented Neuts Not Reportable 04/16/21 05:02 Hypogranular Neuts Not Reportable 04/16/21 05:02 Smudge Cells Not Reportable 04/16/21 05:02 Toxic Granulation Not Reportable 04/16/21 05:02 Toxic Vacuolation Not Reportable 04/16/21 05:02 Dohle Bodies Not Reportable 04/16/21 05:02 Pelger-Huet Anomaly Not Reportable 04/16/21 05:02 Peterson Rods Not Reportable 04/16/21 05:02 Platelet Estimate Consistent w auto 04/16/21 05:02 Clumped Platelets Not Reportable 04/16/21 05:02 Plt Clumps, EDTA Not Reportable 04/16/21 05:02 Large Platelets Not Reportable 04/16/21 05:02 Giant Platelets Not Reportable 04/16/21 05:02 Platelet Satelliting Not Reportable 04/16/21 05:02 Plt Morphology Comment Not Reportable 04/16/21 05:02 RBC Morphology Not Reportable 04/16/21 05:02 Dimorphic RBCs Not Reportable 04/16/21 05:02 Polychromasia Not Reportable 04/16/21 05:02 Hypochromasia Not Reportable 04/16/21 05:02 Poikilocytosis Not Reportable 04/16/21 05:02 Anisocytosis Few 04/16/21 05:02 Microcytosis Not Reportable 04/16/21 05:02 Macrocytosis Not Reportable 04/16/21 05:02 Spherocytes Not Reportable 04/16/21 05:02 Pappenheimer Bodies Not Reportable 04/16/21 05:02 Sickle Cells Not Reportable 04/16/21 05:02 Target Cells Not Reportable 04/16/21 05:02 Tear Drop Cells Not Reportable 04/16/21 05:02 Ovalocytes Not Reportable 04/16/21 05:02 Helmet Cells Not Reportable 04/16/21 05:02 Law-Osburn Bodies Not Reportable 04/16/21 05:02 Benge Rings Not Reportable 04/16/21 05:02 Theo Cells Not Reportable 04/16/21 05:02 Bite Cells Not Reportable 04/16/21 05:02 Crenated Cell Not Reportable 04/16/21 05:02 Elliptocytes Not Reportable 04/16/21 05:02 Acanthocytes (Spur) Not Reportable 04/16/21 05:02 Rouleaux Not Reportable 04/16/21 05:02 Hemoglobin C Crystals Not Reportable 04/16/21 05:02 Schistocytes Not Reportable 04/16/21 05:02 Malaria parasites Not Reportable 04/16/21 05:02 James Bodies Not Reportable 04/16/21 05:02 Hem Pathologist Commnt No 04/16/21 05:02 PT 12.2 Sec. (12.2-14.9) 04/15/21 17:20 INR 0.91 (0.87-1.13) 04/15/21 17:20 APTT 31.8 Sec. (24.2-36.6) 04/15/21 17:20 ABG pH 7.476 (7.320-7.450) H 04/19/21 04:09 POC ABG pCO2 42.4 mmHg (32.0-48.0) 04/19/21 04:09 POC ABG pO2 79.4 mmHg (83-108) L 04/19/21 04:09 POC ABG HCO3 30.6 04/19/21 04:09 ABG O2 Saturation 95.9 (0-100) 04/19/21 04:09 POC ABG Base Excess 6.4 04/19/21 04:09 ABG Hemoglobin 10.7 (12.0-17.5) L 04/19/21 04:09 ABG Oxyhemoglobin 95.3 (94-98) 04/19/21 04:09 ABG Methemoglobin 0.3 (0.0-1.5) 04/19/21 04:09 ABG Sodium 131.2 mmol/L (136.0-145.0) L 04/19/21 04:09 ABG Potassium 2.8 mmol/L (3.40-4.50) L 04/19/21 04:09 ABG Chloride 94.0 mmol/L (98-107) L 04/19/21 04:09 ABG Glucose 209 mg/dL (65-95) H 04/19/21 04:09 Carboxyhemoglobin 0.3 (0.5-1.5) L 04/19/21 04:09 FiO2 % 25.0 04/19/21 04:09 Sodium 133 mmol/L (137-145) L 04/19/21 07:30 Potassium 2.8 mmol/L (3.6-5.0) L* 04/19/21 07:30 Chloride 94.4 mmol/L (98-107) L 04/19/21 07:30 Carbon Dioxide 28 mmol/L (22-30) 04/19/21 07:30 Anion Gap 13 mmol/L 04/19/21 07:30 BUN 43 mg/dL (7-17) H 04/19/21 07:30 Creatinine 2.7 mg/dL (0.6-1.2) H 04/19/21 07:30 Estimated GFR 20 ml/min 04/19/21 07:30 BUN/Creatinine Ratio 16 % 04/19/21 07:30 Glucose 255 mg/dL (65-100) H 04/19/21 07:30 POC Glucose 204 mg/dL (70-105) H 04/19/21 05:19 Lactic Acid 1.50 mmol/L (0.7-2.0) 04/15/21 17:20 Calcium 8.0 mg/dL (8.4-10.2) L 04/19/21 07:30 Magnesium 1.40 mg/dL (1.7-2.3) L 04/18/21 05:43 Total Bilirubin 0.70 mg/dL (0.1-1.2) 04/16/21 05:02 AST 65 units/L (5-40) H 04/16/21 05:02 ALT 31 units/L (7-56) 04/16/21 05:02 Alkaline Phosphatase 79 units/L (35-129) 04/16/21 05:02 Ammonia 46.0 umol/L (25-60) 04/15/21 17:20 Total Creatine Kinase 427 units/L (30-135) H 04/18/21 05:34 CK-MB (CK-2) 9.1 ng/mL (0.0-4.0) H 04/17/21 15:35 CK-MB (CK-2) Rel Index 1.4 (0-4) 04/17/21 15:35 Troponin T 0.060 ng/mL (0.00-0.029) H D 04/19/21 07:30 NT-Pro-B Natriuret Pep 697.9 pg/mL (0-900) 04/15/21 17:20 Total Protein 6.3 g/dL (6.3-8.2) D 04/16/21 05:02 Albumin 3.8 g/dL (3.9-5) L 04/16/21 05:02 Albumin/Globulin Ratio 1.5 % 04/16/21 05:02 Triglycerides 103 mg/dL (2-149) 04/17/21 05:04 Cholesterol 122 mg/dL (50-199) 04/17/21 05:04 LDL Cholesterol Direct 55 mg/dL (50-130) 04/17/21 05:04 HDL Cholesterol 61 mg/dL (40-59) H 04/17/21 05:04 Cholesterol/HDL Ratio 2.00 % 04/17/21 05:04 Procalcitonin 0.20 ng/mL (<0.15) 04/16/21 19:01 TSH 14.190 mlU/mL (0.270-4.200) H 04/15/21 17:20 Thyroxine (T4) 4.1 ug/dL (4.0-12.0) 04/16/21 19:01 Arterial Blood Glucose 209 mg/dL (65-95) H 04/19/21 04:09 Arterial Blood Ionized Calcium 4.6 mg/dL (4.6-5.3) 04/19/21 04:09 Urine Color Yellow (Yellow) 04/18/21 09:11 Urine Turbidity Clear (Clear) 04/18/21 09:11 Urine pH 6.0 (5.0-7.0) 04/18/21 09:11 Ur Specific [place] 1.014 (1.003-1.030) 04/18/21 09:11 Urine Protein >500 mg/dL (Negative) 04/18/21 09:11 Urine Glucose (UA) Neg mg/dL (Negative) 04/18/21 09:11 Urine Ketones Neg mg/dL (Negative) 04/18/21 09:11 Urine Blood Sm (Negative) 04/18/21 09:11 Urine Nitrite Neg (Negative) 04/18/21 09:11 Urine Bilirubin Neg (Negative) 04/18/21 09:11 Urine Urobilinogen 2.0 mg/dL (<2.0) 04/18/21 09:11 Ur Leukocyte Esterase Lg (Negative) 04/18/21 09:11 Urine WBC (Auto) 34.0 /HPF (0.0-6.0) H 04/18/21 09:11 Urine RBC (Auto) 18.0 /HPF (0.0-6.0) 04/18/21 09:11 U Epithel Cells (Auto) < 1.0 /HPF (0-13.0) 04/16/21 00:09 Urine Bacteria (Auto) 1+ /HPF (Negative) 04/16/21 00:09 Urine Creatinine 24.4 mg/dL (0.1-20.0) H 04/16/21 00:12 Urine Sodium 97 mmol/L 04/16/21 00:12 Salicylates 4.1 mg/dL (2.8-20.0) 04/15/21 17:20 Acetaminophen 5.0 ug/mL (10.0-30.0) L 04/15/21 17:20 Plasma/Serum Alcohol 0.02 % (0-0.07) 04/15/21 17:20 Coronavirus (PCR) Negative (Negative) 04/16/21 Unknown Microbiology: Microbiology 04/18/21 15:27 Peripheral/Venous Blood Culture - Preliminary Culture in Progress 04/18/21 15:27 Peripheral/Venous Blood Culture - Preliminary Culture in Progress 04/15/21 17:30 Peripheral/Venous Blood Culture - Preliminary NO GROWTH AFTER 72 HOURS 04/15/21 17:20 Peripheral/Venous Blood Culture - Preliminary NO GROWTH AFTER 72 HOURS 04/16/21 15:38 Tracheal Aspirate Sputum Culture - Preliminary 04/16/21 00:09 Urine,Catheterized - Straight Catheter Urine Culture - Final Kerr/IV: Voiding Method Indwelling Catheter Active Medications - Current Medications Current Medications: Generic Name Dose Route Start Last Admin Trade Name Freq PRN Reason Stop Dose Admin Acetaminophen 650 mg 04/15/21 19:11 04/17/21 22:13 Acetaminophen 325 Mg Tab PO 650 mg Q6H PRN Administration Pain MILD(1-3)/Fever >100.5/SEXTON Lipase/Protease/Amylase 1 each 04/16/21 12:52 Lipase 10,500/Protease 25,000/Amylase 43,750 (Units) Dr Cap FEEDTUBE PRN PRN For Clogged Feeding Tube Bisacodyl 10 mg 04/17/21 11:01 04/17/21 13:46 Bisacodyl 10 Mg Rect Supp AL 10 mg QDAY PRN Administration Constipation Brimonidine Tartrate 1 drops 04/17/21 22:00 04/19/21 09:09 Brimonidine 0.15% Ophth Soln OU 1 drops BID WOLFGANG Administration Famotidine 20 mg 04/17/21 10:00 04/19/21 09:10 Famotidine 20 Mg Tab PO 20 mg DAILY WOLFGANG Administration Heparin Sodium (Porcine) 5,000 unit 04/15/21 22:00 04/19/21 09:09 Heparin 5,000 Unit/1 Ml Vial SUB-Q 5,000 unit Q12HR WOLFGANG Administration Hydralazine HCl 10 mg 04/16/21 18:00 04/17/21 10:51 Hydralazine 20 Mg/1 Ml Inj IV 10 mg Q4HR PRN Administration Hypertension Hydrophilic Ointment 1 applic 04/15/21 17:24 Lip Therapy Vaseline TP Q2HR PRN Dry Lips Propofol 1,000 mg in 100 mls @ 2.91 mls/hr 04/15/21 18:00 04/18/21 16:00 Diprivan 10 Mg/Ml IV 0 mcg/kg/min TITR WOLFGANG 0 mls/hr Titration Protocol 5 MCG/KG/MIN Ceftriaxone Sodium 1 gm in 50 mls @ 100 mls/hr 04/18/21 15:00 04/18/21 18:00 Rocephin/Ns 1 Gm/50 Ml IV 100 mls/hr Q24H WOLFGANG Administration Protocol Insulin Glargine 5 units 04/19/21 09:00 04/19/21 09:11 Insulin Glargine 100 Units/Ml SUB-Q 5 units QAMDIAB WOLFGANG Administration Insulin Human Lispro 0 unit 04/16/21 15:00 04/19/21 05:49 Insulin Lispro 100 Unit/Ml SUB-Q 3 unit Q6HR WOLFGANG Administration Protocol Latanoprost 1 drops 04/17/21 18:00 04/18/21 18:01 Latanoprost 0.005% Ophth Soln 2.5 Ml OU 1 drops QPM WOLFGANG Administration Levothyroxine Sodium 25 mcg 04/19/21 06:00 04/19/21 05:49 Levothyroxine 25 Mcg Tab PO 25 mcg DAILY@0600 WOLFGANG Administration Metoprolol Tartrate 25 mg 04/19/21 10:00 04/19/21 09:10 Metoprolol Tartrate 25 Mg Tab PO 25 mg BID WOLFGANG Administration Modafinil 100 mg 04/19/21 10:00 04/19/21 09:10 Modafinil 100 Mg Tab PO 100 mg QAM WOLFGANG Administration Multi-Ingred Cream/Lotion/Oil/Oint 1 applic 04/15/21 17:24 04/16/21 11:19 Mineral Oil/Petrolatum, White Ophth Oint 3.5 Gm OU 1 applic Q4HR PRN Administration Dry Eye(s) Potassium Chloride 40 meq 04/19/21 09:00 04/19/21 09:08 Potassium Chloride 20 Meq Packet FEEDTUBE 04/19/21 13:01 40 meq Q4H WOLFGANG Administration Pravastatin Sodium 20 mg 04/19/21 22:00 Pravastatin 20 Mg Tab PO QHS WOLFGANG Simple Syrup 15 ml 04/16/21 12:52 Simple Syrup 15 Ml FEEDTUBE PRN PRN Hypoglycemia Simple Syrup 30 ml 04/16/21 12:52 Simple Syrup 15 Ml FEEDTUBE PRN PRN Hypoglycemia Sodium Bicarbonate 325 mg 04/16/21 12:52 Sodium Bicarbonate 325 Mg Tab FEEDTUBE PRN PRN For Clogged Feeding Tube Sodium Chloride 10 ml 04/15/21 22:00 04/19/21 09:10 Sodium Chloride 0.9% 10 Ml Flush Syringe IV 10 ml BID WOLFGANG Administration Sodium Chloride 10 ml 04/15/21 19:11 Sodium Chloride 0.9% 10 Ml Flush Syringe IV PRN PRN LINE FLUSH Timolol Maleate 1 drops 04/19/21 10:00 04/19/21 09:10 Timolol 0.5% Ophth Soln 5 Ml OU 1 drops QDAY WOLFGANG Administration Nutrition/Malnutrition Assess - Dietary Evaluation Nutrition/Malnutrition Findings: Nutrition Notes Start: 04/16/21 12:31 Freq: Status: Active Protocol: Document 04/18/21 12:35 EDWARD (Rec: 04/18/21 12:41 EDWARD [email or web address]) Co-Sign 04/18/21 12:35 SUNDEEP Nutrition Notes Initial or Follow up Reassessment Current Diagnosis Acute Kidney Injury,Diabetes, Hypertension,Respiratory Failure Other Pertinent Diagnosis Dementia, AMS, hx BrCA, [place] Current Diet NPO Labs/Tests Na 134 K 3.0 BUN 42 Cr 3.1 BG 152 Pertinent Medications Kcl 30 meq/hr Insulin Height 5 ft 6 in Weight 97 kg [place] Body Weight (kg) 59.09 BMI 34.4 Weight Status Obese Subjective/Other Information F/U for TF start and vent status. Per RN, pt having high output and waiting to hear back from GI about POC. Pt remains on vent and NGT to LIS . Percent of energy/protein needs met: 0%/0% Burn Absent Trauma Absent Difficulty In Swallowing Current % PO Negligible Minimum of two criteria No physical signs of malnutrition #1 Nutrition Diagnosis Inadequate oral intake Etiology ARF As Evidenced by Signs and Symptoms pt on mechanical vent Diagnosis Progress(for reassessment Continues documentation) Is patient on ventilator? Yes Is Patient Ambulatory and/or Out of Bed No REE-([facility]-confined to bed) 1748.712 Kcal/Kg value to use for calculation 15 Approximate Energy Requirements Using 1455 kcal/Kg Calculation Used for Recommendations Kcal/kg Additional Notes protien needs: >118g (>2 g/ kgIBW) Fluid needs: 1 ml/kcal Nutrition Intervention Change Diet Order: Initiate TF when medically able Nutrition Support: Nepro at 35 ml/hr with a free water flush of 75 ml q4h for hyponatremia. Resume free water flush of 150 ml q4h once hyponatremia resolves. Kcal 1,512 Protein (gm) 68 Fluid (mL) 611 Goal #1 Initiate TF Goal #2 Meet needs as best as possible via TF Anticipated Discharge Needs: unable to determine at this time Follow-Up By: 04/20/21 Additional Comments F/U for TF start/tolerance
[2021-04-19] MEDS: cefTRIAXone/NS 1 GM/50 ML 1 GM/50 ML BAG IV SCH (15:21)
--- NOTE | 2021-04-19 15:41 | Event Note ---
I called the patient nephew [phone] to inform him of no answer from [facility] yet regarding transfer. He inquired about transfer to [facility]. I informed him that if he got insurance approval to transfer to [facility] like how he did for [facility] then we could call to ask for transfer. Patient is not needing a higher level of care at this time. Informed him of current events including CPAP trial.
[2021-04-19] MEDS: LATANOPROST 0.005% OPHTH SOLN 2.5 ML OU SCH (18:08)
[2021-04-19] MEDS: PRAVASTATIN 20 MG TAB PO SCH (21:48)
[2021-04-19] MEDS ORDERED: POTASSIUM CHLORIDE 20 MEQ PACKET FEEDTUBE ONE (22:33)
[2021-04-19] MEDS: hydrALAZINE 20 MG/1 ML INJ IV PRN (22:40)
[2021-04-19] MEDS: ACETAMINOPHEN 325 MG TAB PO PRN (23:33)
[2021-04-20 04:01] LABS: Hematocrit 30.8 % (30.3-42.9); Hemoglobin 10.3 gm/dl (10.1-14.3); Mean Corpuscular HGB Conc 34 % (30-34); Mean Corpuscular Volume 97 fl (79-97); Platelet Count 164 K/mm3 (140-440); Red Blood Count 3.18 M/mm3 (3.65-5.03); Red Cell Distribution Width 14.9 % (13.2-15.2)
[2021-04-20 04:23] LABS: Calcium 9.1 mg/dL (8.4-10.2)
[2021-04-20] MEDS: hydrALAZINE 20 MG/1 ML INJ IV PRN ×2 (04:36→16:13)
[2021-04-20] MEDS: INSULIN LISPRO 100 UNIT/ML SUB-Q SCH ×3 (06:33→17:22)
[2021-04-20] MEDS: LEVOTHYROXINE 25 MCG TAB PO SCH (06:33)
[2021-04-20] MEDS: METOPROLOL TARTRATE 25 MG TAB PO SCH ×2 (09:07→21:24)
[2021-04-20] MEDS: FAMOTIDINE 20 MG TAB PO SCH (09:07)
[2021-04-20] MEDS: MODAFINIL 100 MG TAB PO SCH (09:07)
[2021-04-20] MEDS: HEPARIN 5,000 UNIT/1 ML VIAL SUB-Q SCH ×2 (09:08→21:23)
[2021-04-20] MEDS: INSULIN GLARGINE 100 UNITS/ML SUB-Q SCH (09:08)
[2021-04-20] MEDS: TIMOLOL 0.5% OPHTH SOLN 5 ML OU SCH (09:19)
[2021-04-20] MEDS: BRIMONIDINE 0.15% OPHTH SOLN OU SCH ×2 (09:19→21:23)
--- NOTE | 2021-04-20 09:27 | Progress Note ---
Assessment and Plan #Altered mental status * Neurology is consulted for acute CVA versus subclinical seizure activity. EEG is pending * Patient was intubated to protect airway #NSTEMI suspect type II * Troponins are elevated, subacte and nonspecific, trending downward. Continue to trend CE's. * Telemetry reviewed: Sinus rhythm 79 with frequent PACs and PVCs and left bundle branch block. Paroxysmal sinus tach rate 130s with frequent PACs this a.m. Repeat ECG is pending. * Echocardiogram reviewed (04/15/2021): LVEF is 45 to 50%. LV SF is borderline. Mild concentric LVH. Paradoxical septal motion consistent with LBBB. Left ventricular diastolic function is indeterminate. No VSD visualized. No ventricle thrombus noted on the study. RV SF is grossly normal. RVSP is 24 mmHg. No valvular abnormalities. #Hypertension * Continue current antihypertensive regimen: Metoprolol 25 mg twice daily #Acute on chronic renal disease in setting of chronic diabetes * No ACEI/ARB in setting of acute kidney injury. Avoid nephrotoxic agents. Nephrology is following. #DVT prophylaxis * Heparin SQ We will follow This patient was seen in conjunction with Dr Tejeda who agrees with this assessment and plan of care - Patient Problems (1) Acute metabolic encephalopathy due to hypoglycemia Current Visit: Yes Status: Acute (2) Acute hypoxemic respiratory failure Current Visit: Yes Status: Acute (3) Acute kidney injury Current Visit: Yes Status: Acute (4) DVT prophylaxis Current Visit: Yes Status: Acute (5) Diabetes mellitus Current Visit: Yes Status: Chronic (6) STEMI (ST elevation myocardial infarction) Current Visit: Yes Status: Acute Subjective Date of service: 04/20/21 Principal diagnosis: Ac. resp failure; AMS; Hypoglycemia; ROJELIO; Hyperkalemia; DM II Interval history: Patient is resting in bed intubated and sedated Telemetry reviewed: Sinus rhythm 79 with frequent PACs and PVCs and left bundle branch block. Paroxysmal sinus tach rate 130s with frequent PACs this a.m. Objective Last Vital Signs Temp 99.4 F 04/20/21 07:27 Pulse 136 H 04/20/21 09:07 Resp 15 04/20/21 06:30 BP 137/77 04/20/21 09:07 Pulse Ox 99 04/20/21 07:35 - Physical Examination General: Other (Intubated and sedated) HEENT: Positive: Other (Intubated and sedated) Neck: Positive: neck supple, trachea midline Cardiac: Positive: S1/S2, Other Lungs: Positive: Ventilated Respirations Neuro: Positive: Other (Intubated and sedated) Abdomen: Positive: Unremarkable Skin: Negative: Rash, Wound Musculoskeletal: other (Intubated and sedated) Extremities: Present: upper extr. pulses, lower extr. pulses, edema - Labs and Meds CBC 04/20/21 Range/Units 03:32 WBC 13.2 H (4.5-11.0) K/mm3 RBC 3.18 L (3.65-5.03) M/mm3 Hgb 10.3 (10.1-14.3) gm/dl Hct 30.8 (30.3-42.9) % Plt Count 164 (140-440) K/mm3 Comprehensive Metabolic Panel 04/19/21 04/20/21 Range/Units 20:40 03:32 Sodium 135 L (137-145) mmol/L Potassium 3.4 L D 4.1 D (3.6-5.0) mmol/L Chloride 96.7 L (98-107) mmol/L Carbon Dioxide 28 (22-30) mmol/L BUN 40 H (7-17) mg/dL Creatinine 2.3 H (0.6-1.2) mg/dL Glucose 142 H (65-100) mg/dL Calcium 9.1 (8.4-10.2) mg/dL - Imaging and Cardiology EKG: report reviewed, image reviewed Echo: report reviewed - Telemetry EKG Rhythm: Sinus Tachycardia - EKG Sinus rhythms and dysrhythmias: sinus rhythm - Allied health notes Allied health notes reviewed: nursing
[2021-04-20] MEDS ORDERED: FUROSEMIDE 40 MG TAB PO SCH (10:00)
--- NOTE | 2021-04-20 10:08 | Progress Note ---
Assessment and Plan 1. Acute kidney injury: Likely vasomotor ROJELIO. ATN likely. Renal US negative for hydro. Baseline renal function is unknown. Monitor renal function. Non-oliguric. Creatinine level is improving. Avoid nephrotoxic agents. Meds dosage based on GFR. 2. FEN: Hypokalemia, K level is better, monitor. Hyponatremia, monitor. Salt tablets as needed. Monitor lytes and volume status. 3. Acute hypoxemic respiratory failure: Currently intubated, on vent. 4. Acute encephalopathy: Hypoglycemia. MRI brain negative. 5. Leukocytosis. 6. Hypertension. 7. DM type 2. 8. Mild rhabdomyolysis. 9. Mildly complex R renal cyst. Subjective: Patient was not examined today. However the examination findings from other providers noted. The current and previous medical records are reviewed in detail as are laboratory and imaging data reviewed when appropriate. Medications being given are also reviewed. In addition the case has been discussed with the attending hospitalist and the nurse when needed. New renal recommendations as above. Subjective Date of service: 04/20/21 Principal diagnosis: Ac. resp failure; AMS; Hypoglycemia; ROJELIO; Hyperkalemia; DM II Objective - Vital Signs Vital signs: Vital Signs - 12hr 04/19/21 04/19/21 04/19/21 22:30 22:40 23:00 Temperature Pulse Rate 70 70 77 Pulse Rate [ From Monitor] Respiratory 18 19 Rate Blood Pressure 170/65 170/65 153/52 O2 Sat by Pulse 100 100 Oximetry 04/19/21 04/19/21 04/20/21 23:17 23:30 00:00 Temperature 101.2 F H Pulse Rate 68 72 Pulse Rate [ 72 From Monitor] Respiratory 12 14 Rate Blood Pressure 158/56 169/50 O2 Sat by Pulse 99 100 Oximetry 04/20/21 04/20/21 04/20/21 00:30 00:43 01:00 Temperature Pulse Rate 64 72 74 Pulse Rate [ From Monitor] Respiratory 9 L 19 Rate Blood Pressure 131/49 131/49 144/71 O2 Sat by Pulse 100 100 100 Oximetry 04/20/21 04/20/21 04/20/21 01:30 02:00 02:30 Temperature Pulse Rate 69 67 74 Pulse Rate [ From Monitor] Respiratory 12 11 L 16 Rate Blood Pressure 156/47 131/48 137/55 O2 Sat by Pulse 99 100 100 Oximetry 04/20/21 04/20/21 04/20/21 03:00 03:10 03:28 Temperature 99.3 F Pulse Rate 71 69 Pulse Rate [ From Monitor] Respiratory 13 Rate Blood Pressure 148/57 148/57 O2 Sat by Pulse 100 100 Oximetry 04/20/21 04/20/21 04/20/21 03:30 04:00 04:30 Temperature Pulse Rate 77 70 75 Pulse Rate [ 65 From Monitor] Respiratory 16 15 14 Rate Blood Pressure 148/57 182/58 O2 Sat by Pulse 100 100 100 Oximetry 04/20/21 04/20/21 04/20/21 04:36 05:00 05:30 Temperature Pulse Rate 80 90 78 Pulse Rate [ From Monitor] Respiratory 18 16 Rate Blood Pressure 182/58 156/58 156/58 O2 Sat by Pulse 99 99 Oximetry 04/20/21 04/20/21 04/20/21 06:00 06:30 07:27 Temperature 99.4 F Pulse Rate 74 93 H Pulse Rate [ From Monitor] Respiratory 18 15 Rate Blood Pressure 165/63 137/68 O2 Sat by Pulse 100 100 Oximetry 04/20/21 04/20/21 07:35 09:07 Temperature Pulse Rate 78 136 H Pulse Rate [ From Monitor] Respiratory Rate Blood Pressure 166/57 137/77 O2 Sat by Pulse 99 Oximetry - Lab 04/20/21 03:32 04/20/21 03:32 Most recent lab results ABG pH 7.526 (7.320-7.450) H 04/20/21 02:56 ABG O2 Saturation 98.2 (0-100) 04/20/21 02:56 Calcium 9.1 mg/dL (8.4-10.2) 04/20/21 03:32 Magnesium 1.70 mg/dL (1.7-2.3) 04/19/21 16:05 Urine Creatinine 24.4 mg/dL (0.1-20.0) H 04/16/21 00:12 Urine Sodium 97 mmol/L 04/16/21 00:12 Medications & Allergies - Medications Allergies/Adverse Reactions: Allergies No Known Allergies Allergy (Unverified 04/15/21 17:41) Home Medications: Home Medications Medication Instructions Recorded Confirmed Last Taken Type Betaxolol HCl [Betoptic S 0.25% 1 drop OU BID 04/16/21 04/16/21 Unknown History SUSP] Bimatoprost [Lumigan 0.01%] 1 drop OU QPM 04/16/21 04/16/21 Unknown History Brimonidine Tartrate [Brimonidine 5 ml OU BID 04/16/21 04/16/21 Unknown History Tartrate 0.2%] Furosemide [Lasix TAB] 40 mg PO QDAY 04/16/21 04/16/21 Unknown History Gabapentin [Neurontin] 300 mg PO Q8HR 04/16/21 04/16/21 Unknown History HYDROcodone/APAP 10-325 [[place] 1 each PO Q6HR PRN 04/16/21 04/16/21 Unknown History 10/325] Hydralazine HCl 50 mg PO Q4HR 04/16/21 04/16/21 Unknown History Insulin Aspart Prot/Insuln Asp 52 units SQ HS 04/16/21 04/16/21 Unknown History [Novolog Mix 70-30 Flexpen] Metoprolol [Lopressor] 25 mg PO BID 04/16/21 04/16/21 Unknown History Pravastatin [Pravachol] 20 mg PO QHS 04/16/21 04/16/21 Unknown History Promethazine [Phenergan] 25 mg PO Q6HR 04/16/21 04/16/21 Unknown History allopurinoL [Zyloprim] 150 mg PO QDAY 04/16/21 04/16/21 Unknown History Active Medications: Generic Name Dose Route Start Last Admin Trade Name Freq PRN Reason Stop Dose Admin Acetaminophen 650 mg 04/15/21 19:11 04/19/21 23:33 Acetaminophen 325 Mg Tab PO 650 mg Q6H PRN Administration Pain MILD(1-3)/Fever >100.5/SEXTON Lipase/Protease/Amylase 1 each 04/16/21 12:52 Lipase 10,500/Protease 25,000/Amylase 43,750 (Units) Dr Simpson FEEDTUBE PRN PRN For Clogged Feeding Tube Bisacodyl 10 mg 04/17/21 11:01 04/17/21 13:46 Bisacodyl 10 Mg Rect Supp IN 10 mg QDAY PRN Administration Constipation Brimonidine Tartrate 1 drops 04/17/21 22:00 04/20/21 09:19 Brimonidine 0.15% Ophth Soln OU 1 drops BID WOLFGANG Administration Famotidine 20 mg 04/17/21 10:00 04/20/21 09:07 Famotidine 20 Mg Tab PO 20 mg DAILY WOLFGANG Administration Heparin Sodium (Porcine) 5,000 unit 04/15/21 22:00 04/20/21 09:08 Heparin 5,000 Unit/1 Ml Vial SUB-Q 5,000 unit Q12HR WOLFGANG Administration Hydralazine HCl 10 mg 04/16/21 18:00 04/20/21 04:36 Hydralazine 20 Mg/1 Ml Inj IV 10 mg Q4HR PRN Administration Hypertension Hydrophilic Ointment 1 applic 04/15/21 17:24 Lip Therapy Vaseline TP Q2HR PRN Dry Lips Propofol 1,000 mg in 100 mls @ 2.91 mls/hr 04/15/21 18:00 04/20/21 07:28 Diprivan 10 Mg/Ml IV 0 mcg/kg/min TITR WOLFGANG 0 mls/hr Titration Protocol 5 MCG/KG/MIN Ceftriaxone Sodium 1 gm in 50 mls @ 100 mls/hr 04/18/21 15:00 04/19/21 15:21 Rocephin/Ns 1 Gm/50 Ml IV 100 mls/hr Q24H WOLFGANG Administration Protocol Insulin Glargine 5 units 04/19/21 09:00 04/20/21 09:08 Insulin Glargine 100 Units/Ml SUB-Q 5 units QAMDIAB WOLFGANG Administration Insulin Human Lispro 0 unit 04/16/21 15:00 04/20/21 06:33 Insulin Lispro 100 Unit/Ml SUB-Q 2 unit Q6HR WOLFGANG Administration Protocol Latanoprost 1 drops 04/17/21 18:00 04/19/21 18:08 Latanoprost 0.005% Ophth Soln 2.5 Ml OU 1 drops QPM WOLFGANG Administration Levothyroxine Sodium 25 mcg 04/19/21 06:00 04/20/21 06:33 Levothyroxine 25 Mcg Tab PO 25 mcg DAILY@0600 WOLFGANG Administration Metoprolol Tartrate 25 mg 04/19/21 10:00 04/20/21 09:07 Metoprolol Tartrate 25 Mg Tab PO 25 mg BID WOLFGANG Administration Modafinil 100 mg 04/19/21 10:00 04/20/21 09:07 Modafinil 100 Mg Tab PO 100 mg QAM WOLFGANG Administration Multi-Ingred Cream/Lotion/Oil/Oint 1 applic 04/15/21 17:24 04/16/21 11:19 Mineral Oil/Petrolatum, White Ophth Oint 3.5 Gm OU 1 applic Q4HR PRN Administration Dry Eye(s) Pravastatin Sodium 20 mg 04/19/21 22:00 04/19/21 21:48 Pravastatin 20 Mg Tab PO 20 mg QHS WOLFGANG Administration Simple Syrup 15 ml 04/16/21 12:52 Simple Syrup 15 Ml FEEDTUBE PRN PRN Hypoglycemia Simple Syrup 30 ml 04/16/21 12:52 Simple Syrup 15 Ml FEEDTUBE PRN PRN Hypoglycemia Sodium Bicarbonate 325 mg 04/16/21 12:52 Sodium Bicarbonate 325 Mg Tab FEEDTUBE PRN PRN For Clogged Feeding Tube Sodium Chloride 10 ml 04/15/21 22:00 04/20/21 09:09 Sodium Chloride 0.9% 10 Ml Flush Syringe IV 10 ml BID WOLFGANG Administration Sodium Chloride 10 ml 04/15/21 19:11 Sodium Chloride 0.9% 10 Ml Flush Syringe IV PRN PRN LINE FLUSH Timolol Maleate 1 drops 04/19/21 10:00 04/20/21 09:19 Timolol 0.5% Ophth Soln 5 Ml OU 1 drops QDAY WOLFGANG Administration
--- NOTE | 2021-04-20 10:54 | Electrocardiograph Report ---
[facility] Test Date: 2021-04-20 Test Time: 09:38:15 Pat Name: ARUN CAMPOS Department: Room: A260 1 Gender: F Senior Consultant: RAHEEM : 1940 Requested By: MARCUS COWAN Order Number: [id number] Reading MD: Pancho Tejeda Measurements Intervals [place] Rate: 136 P: IA: QRS: -37 QRSD: 144 T: 142 QT: 351 QTc: 530 Interpretive Statements Atrial fibrillation Left bundle branch block Compared to ECG 04/15/2021 17:36:30 Electronically Signed On 04-20-2021 10:54:25 EDT by Pancho Tejeda
--- NOTE | 2021-04-20 14:03 | Progress Note ---
Assessment and Plan Assessment and plan: This is a 80-year-old female with HTN, DM, [place], breast CA s/p double mastectomy, TIA who presented with hypoglycemia, AMS who was admitted with SIRS, symptomatic bradycardia, acute metabolic encephalopathy, acute hypoxic respiratory failure, elevated TSH, hyperglycemia, hyponatremia, hypokalemia, ROJELIO and rhabdomyolysis Acute metabolic encephalopathy Acute hypoxic respiratory failure Hypoglycemia, resolved First-degree heart block Resolved ileus versus mechanical obstruction Acute kidney injury UTI, gram negative rods Hyponatremia Hypochloremia Leukocytosis Possible seizure activity Elevated TSH Mild rhabdomyolysis Hypertension Diabetes mellitus CAD Obesity -[facility], cardiology, nephrology, neurology, nutrition consulted, appreciate recommendations -04/15 CT head shows age-related atrophic change, chronic small vessel ischemic change, no CT evidence of acute large vessel territory ischemic injury, hemorrhage or mass -04/15 echocardiogram shows left ventricular systolic function borderline, LVEF 4 5 to 50%, mild concentric LVH, paradoxical septal motion consistent with left bundle branch block with no clot identified in the left ventricle, calcified aortic valve without regurgitation or stenosis, trace MR, trace TR, no MT, RVSP is 24 mmHg -04/17 KUB shows gas-filled and dilated loops of small bowel noted over the upper abdomen largest measuring 5 cm concerning for ileus versus mechanical obs truction -04/18 KUB shows interval resolution of previously seen small bowel dilation -04/18 EEG pending -04/19 MRI brain shows no restricted diffusion, no hemorrhage,, no radiation, findings consistent with chronic microvascular disease, small bilateral mastoid effusions, mucosal thickening throughout the paranasal sinuses seen within the maxillary sinuses -S/p antibiotic therapy x1, currently on abd for UTI -S/p D10 gtt, on TF -Accu-Cheks every 6, SSI, long acting insulin -D5W gtt per nephrology -S/p IV calcium gluconate, regular insulin, D50 -S/p transcutaneous pacing, intermittent demand pacer in place -Renal ultrasound pending -Avoid ACEi/ARB in setting of ROJELIO -Avoid AV arron blocking agents -Avoid nephrotoxic agents and renally dose medications -BB, add home antihtn regimen as needed -VAP bundle, wean mechanical ventilation as tolerated -TSH 14.1, T4 4.1, T3 pending-started on levothyroxine -Blood pressure monitoring per protocol -IV hydralazine as needed -Provegil -Trend CBC, BMP, CK DVT/GI prophylaxis: Heparin subcu, PPI, SCDs to bilateral lower extremities while in bed Disposition: ICU The high probability of a clinically significant, sudden or life threatening deterioration of the [multi] system(s) required my full and direct attention, intervention and personal management. The aggregate critical care time was [35] minutes. This time is in addition to time spent performing reported procedures but includes the following: [x] Data Review and interpretation [x] Patient assessment and monitoring of vital signs [x] Documentation [x] Medication orders and management History Interval history: This is a 80-year-old female with hypertension, diabetes mellitus, [place], breast cancer s/p double mastectomy, and a TIA who presented with hypoglycemia and altered mental status on 04/15 via EMS. Per EMS patient was unresponsive on their arrival and her blood glucose was 38 and she received 1 amp of dextrose patient continued to be unresponsive and only moaned with her eyes deviating to the left. Work-up in the emergency department revealed SIRS, symptomatic bradycardia, acute metabolic encephalopathy, acute hypoxic respiratory failure, elevated TSH, hyperglycemia, hyponatremia, hyperkalemia, acute kidney injury with ATN, and rhabdomyolysis 04/16: Neurology consulted, COVID-19 PCR negative, D10 drip decreased and even tually discontinued by [facility] and started on D5W for 1 L. Hydralazine as needed. Patient had hyper kalemia today and was treated with D50, insulin and Kayexalate. This time examination patient is on assist control tidal volume 450, rate of 16, PEEP of 6 and 25% FiO2. 04/17: Patient started on low-dose beta-angel per cardiology, CPAP trial again per [facility], BUN/creatinine holding steady and hypochloremia/hyponatremia slightly improved and hypokalemia has resolved. This morning a KUB was obtained which was concerning for ileus versus mechanical obstruction and surgery was consulted. Patient was made n.p.o. and NG tube placed to wall suction. Patient was given suppository. Per RN patient did not have a BM even though she was given Kayexalate yesterday. Will obtain a KUB in the a.m. Neurology was consulted yesterday and will await further recommendations. Nephew updated at bedside today, Carlos Romero. 04/18: Neurology has ordered EEG/MRI B, [facility] continues to wean MV. Persistent low grade temperature so we will obtain BCx2/UA. Patient has improving leukocytosis, hyponatremia, renal function studies and hypochloremia. She has hypokalemia today which is being repleted. Surgery has signed off today and has okayed resumption of TF. [facility] will trial CPAP for longer today and plans to attempt extubation in AM. Family has requested transfer to [place] and Dr. Gordon will attempt to contact transfer center. I updated her nephew, Carlos Romero over the phone today abouyt current events and update on transfer ([place] will conduct a utilization review) 04/19: This morning patient is on CPAP trial at the time of examination, noted to be hypertensive and metoprolol increased to home dose, started on synthroid by [facility], lantus started re hyperglycemia, MRI completed with no acute findings. Severe hypokalemia (repleted and Mg pending). [facility] will contact CPAP trial again today with possible trial extubation tomorrow. 04/20: Patient's leukocytosis and kidney function tests continue to improve. Patient is hypertensive overnight we will restart home hydralazine. [facility] plans to extubate patient today. Family is attempting to transfer to another facility. EEG pending, RT will atmept to contact technician semiconductor development. Urine culture grew gram negative rods. Increase in lantus Hospitalist Physical - Constitutional Vitals: Temp Pulse Resp BP Pulse Ox 98.6 F 72 11 L 161/55 100 04/20/21 12:00 04/20/21 13:30 04/20/21 13:30 04/20/21 13:30 04/20/21 13:30 General appearance: Present: no acute distress, other (sedated) - EENT Eyes: Present: PERRL, EOM intact ENT: hearing intact, clear oral mucosa, dentition normal - Neck Neck: Present: normal ROM - Respiratory Respiratory effort: normal Respiratory: bilateral: CTA, diminished - Cardiovascular Rhythm: regular Heart Sounds: Present: S1 & S2. Absent: systolic murmur, diastolic murmur - Extremities Extremities: no ischemia, pulses intact, pulses symmetrical, normal temperature, normal color Extremity abnormal: edema Peripheral Pulses: within normal limits - Abdominal General gastrointestinal: soft, non-tender, non-distended, normal bowel sounds - Integumentary Integumentary: Present: warm, dry - Psychiatric Psychiatric: cooperative - Neurologic Neurologic: CNII-XII intact, moves all extremities - Allied Health Allied health notes reviewed: nursing, RT, social work HEART Score - HEART Score Troponin: Troponin T 0.065 ng/mL (0.00-0.029) H 04/20/21 03:32 Results - Labs CBC & Chem 7: 04/20/21 03:32 04/20/21 03:32 Labs: Laboratory Last Values WBC 13.2 K/mm3 (4.5-11.0) H 04/20/21 03:32 RBC 3.18 M/mm3 (3.65-5.03) L 04/20/21 03:32 Hgb 10.3 gm/dl (10.1-14.3) 04/20/21 03:32 Hct 30.8 % (30.3-42.9) 04/20/21 03:32 MCV 97 fl (79-97) 04/20/21 03:32 MCH 32 pg (28-32) 04/20/21 03:32 MCHC 34 % (30-34) 04/20/21 03:32 RDW 14.9 % (13.2-15.2) 04/20/21 03:32 Plt Count 164 K/mm3 (140-440) 04/20/21 03:32 Lymph % (Auto) 12.8 % (13.4-35.0) L 04/15/21 17:20 [place] % (Auto) 4.1 % (0.0-7.3) 04/15/21 17:20 Eos % (Auto) 0.3 % (0.0-4.3) 04/15/21 17:20 Baso % (Auto) 0.4 % (0.0-1.8) 04/15/21 17:20 Lymph # (Auto) 1.4 K/mm3 (1.2-5.4) 04/15/21 17:20 [place] # (Auto) 0.5 K/mm3 (0.0-0.8) 04/15/21 17:20 Eos # (Auto) 0.0 K/mm3 (0.0-0.4) 04/15/21 17:20 Baso # (Auto) 0.0 K/mm3 (0.0-0.1) 04/15/21 17:20 Add Manual Diff Complete 04/16/21 05:02 Total Counted 100 04/16/21 05:02 Seg Neutrophils % 82.4 % (40.0-70.0) H 04/15/21 17:20 Seg Neuts % (Manual) 84.0 % (40.0-70.0) H 04/16/21 05:02 Band Neutrophils % 3.0 % 04/16/21 05:02 Lymphocytes % (Manual) 2.0 % (13.4-35.0) L 04/16/21 05:02 Monocytes % (Manual) 10.0 % (0.0-7.3) H 04/16/21 05:02 Metamyelocytes % 1.0 % 04/16/21 05:02 Nucleated RBC % Not Reportable 04/16/21 05:02 Seg Neutrophils # 9.3 K/mm3 (1.8-7.7) H 04/15/21 17:20 Seg Neutrophils # Man 17.8 K/mm3 (1.8-7.7) H 04/16/21 05:02 Band Neutrophils # 0.6 K/mm3 04/16/21 05:02 Lymphocytes # (Manual) 0.4 K/mm3 (1.2-5.4) L 04/16/21 05:02 Abs React Lymphs (Man) 0.0 K/mm3 04/16/21 05:02 Monocytes # (Manual) 2.1 K/mm3 (0.0-0.8) H 04/16/21 05:02 Eosinophils # (Manual) 0.0 K/mm3 (0.0-0.4) 04/16/21 05:02 Basophils # (Manual) 0.0 K/mm3 (0.0-0.1) 04/16/21 05:02 Metamyelocytes # 0.2 K/mm3 04/16/21 05:02 Myelocytes # 0.0 K/mm3 04/16/21 05:02 Promyelocytes # 0.0 K/mm3 04/16/21 05:02 Blast Cells # 0.0 K/mm3 04/16/21 05:02 WBC Morphology Not Reportable 04/16/21 05:02 Hypersegmented Neuts Not Reportable 04/16/21 05:02 Hyposegmented Neuts Not Reportable 04/16/21 05:02 Hypogranular Neuts Not Reportable 04/16/21 05:02 Smudge Cells Not Reportable 04/16/21 05:02 Toxic Granulation Not Reportable 04/16/21 05:02 Toxic Vacuolation Not Reportable 04/16/21 05:02 Dohle Bodies Not Reportable 04/16/21 05:02 Pelger-Huet Anomaly Not Reportable 04/16/21 05:02 Peterson Rods Not Reportable 04/16/21 05:02 Platelet Estimate Consistent w auto 04/16/21 05:02 Clumped Platelets Not Reportable 04/16/21 05:02 Plt Clumps, EDTA Not Reportable 04/16/21 05:02 Large Platelets Not Reportable 04/16/21 05:02 Giant Platelets Not Reportable 04/16/21 05:02 Platelet Satelliting Not Reportable 04/16/21 05:02 Plt Morphology Comment Not Reportable 04/16/21 05:02 RBC Morphology Not Reportable 04/16/21 05:02 Dimorphic RBCs Not Reportable 04/16/21 05:02 Polychromasia Not Reportable 04/16/21 05:02 Hypochromasia Not Reportable 04/16/21 05:02 Poikilocytosis Not Reportable 04/16/21 05:02 Anisocytosis Few 04/16/21 05:02 Microcytosis Not Reportable 04/16/21 05:02 Macrocytosis Not Reportable 04/16/21 05:02 Spherocytes Not Reportable 04/16/21 05:02 Pappenheimer Bodies Not Reportable 04/16/21 05:02 Sickle Cells Not Reportable 04/16/21 05:02 Target Cells Not Reportable 04/16/21 05:02 Tear Drop Cells Not Reportable 04/16/21 05:02 Ovalocytes Not Reportable 04/16/21 05:02 Helmet Cells Not Reportable 04/16/21 05:02 [place] Bodies Not Reportable 04/16/21 05:02 [place] Rings Not Reportable 04/16/21 05:02 [place] Cells Not Reportable 04/16/21 05:02 Bite Cells Not Reportable 04/16/21 05:02 Crenated Cell Not Reportable 04/16/21 05:02 Elliptocytes Not Reportable 04/16/21 05:02 Acanthocytes (Spur) Not Reportable 04/16/21 05:02 Rouleaux Not Reportable 04/16/21 05:02 Hemoglobin C Crystals Not Reportable 04/16/21 05:02 Schistocytes Not Reportable 04/16/21 05:02 Malaria parasites Not Reportable 04/16/21 05:02 James Bodies Not Reportable 04/16/21 05:02 Hem Pathologist Commnt No 04/16/21 05:02 PT 12.2 Sec. (12.2-14.9) 04/15/21 17:20 INR 0.91 (0.87-1.13) 04/15/21 17:20 APTT 31.8 Sec. (24.2-36.6) 04/15/21 17:20 ABG pH 7.526 (7.320-7.450) H 04/20/21 02:56 POC ABG pCO2 35.7 mmHg (32.0-48.0) 04/20/21 02:56 POC ABG pO2 105.1 mmHg (83-108) 04/20/21 02:56 POC ABG HCO3 28.9 04/20/21 02:56 ABG O2 Saturation 98.2 (0-100) 04/20/21 02:56 POC ABG Base Excess 5.9 04/20/21 02:56 ABG Hemoglobin 10.5 (12.0-17.5) L 04/20/21 02:56 ABG Oxyhemoglobin 97.6 (94-98) 04/20/21 02:56 ABG Methemoglobin 0.3 (0.0-1.5) 04/20/21 02:56 ABG Sodium 133.5 mmol/L (136.0-145.0) L 04/20/21 02:56 ABG Potassium 3.7 mmol/L (3.40-4.50) 04/20/21 02:56 ABG Chloride 99.0 mmol/L (98-107) 04/20/21 02:56 ABG Glucose 157 mg/dL (65-95) H 04/20/21 02:56 Carboxyhemoglobin 0.3 (0.5-1.5) L 04/20/21 02:56 FiO2 % 25.0 04/20/21 02:56 Sodium 135 mmol/L (137-145) L 04/20/21 03:32 Potassium 4.1 mmol/L (3.6-5.0) D 04/20/21 03:32 Chloride 96.7 mmol/L (98-107) L 04/20/21 03:32 Carbon Dioxide 28 mmol/L (22-30) 04/20/21 03:32 Anion Gap 14 mmol/L 04/20/21 03:32 BUN 40 mg/dL (7-17) H 04/20/21 03:32 Creatinine 2.3 mg/dL (0.6-1.2) H 04/20/21 03:32 Estimated GFR 25 ml/min 04/20/21 03:32 BUN/Creatinine Ratio 17 % 04/20/21 03:32 Glucose 142 mg/dL (65-100) H 04/20/21 03:32 POC Glucose 194 mg/dL (70-105) H 04/20/21 11:50 Lactic Acid 1.50 mmol/L (0.7-2.0) 04/15/21 17:20 Calcium 9.1 mg/dL (8.4-10.2) 04/20/21 03:32 Magnesium 1.70 mg/dL (1.7-2.3) 04/19/21 16:05 Total Bilirubin 0.70 mg/dL (0.1-1.2) 04/16/21 05:02 AST 65 units/L (5-40) H 04/16/21 05:02 ALT 31 units/L (7-56) 04/16/21 05:02 Alkaline Phosphatase 79 units/L (35-129) 04/16/21 05:02 Ammonia 46.0 umol/L (25-60) 04/15/21 17:20 Total Creatine Kinase 427 units/L (30-135) H 04/18/21 05:34 CK-MB (CK-2) 9.1 ng/mL (0.0-4.0) H 04/17/21 15:35 CK-MB (CK-2) Rel Index 1.4 (0-4) 04/17/21 15:35 Troponin T 0.065 ng/mL (0.00-0.029) H 04/20/21 03:32 NT-Pro-B Natriuret Pep 697.9 pg/mL (0-900) 04/15/21 17:20 Total Protein 6.3 g/dL (6.3-8.2) D 04/16/21 05:02 Albumin 3.8 g/dL (3.9-5) L 04/16/21 05:02 Albumin/Globulin Ratio 1.5 % 04/16/21 05:02 Triglycerides 103 mg/dL (2-149) 04/17/21 05:04 Cholesterol 122 mg/dL (50-199) 04/17/21 05:04 LDL Cholesterol Direct 55 mg/dL (50-130) 04/17/21 05:04 HDL Cholesterol 61 mg/dL (40-59) H 04/17/21 05:04 Cholesterol/HDL Ratio 2.00 % 04/17/21 05:04 Procalcitonin 0.20 ng/mL (<0.15) 04/16/21 19:01 TSH 14.190 mlU/mL (0.270-4.200) H 04/15/21 17:20 Thyroxine (T4) 4.1 ug/dL (4.0-12.0) 04/16/21 19:01 Free T3 Index 1.1 pg/mL (2.3-4.2) L 04/16/21 19:01 Arterial Blood Glucose 157 mg/dL (65-95) H 04/20/21 02:56 Arterial Blood Ionized Calcium 4.8 mg/dL (4.6-5.3) 04/20/21 02:56 Urine Color Yellow (Yellow) 04/18/21 09:11 Urine Turbidity Clear (Clear) 04/18/21 09:11 Urine pH 6.0 (5.0-7.0) 04/18/21 09:11 Ur Specific [place] 1.014 (1.003-1.030) 04/18/21 09:11 Urine Protein >500 mg/dL (Negative) 04/18/21 09:11 Urine Glucose (UA) Neg mg/dL (Negative) 04/18/21 09:11 Urine Ketones Neg mg/dL (Negative) 04/18/21 09:11 Urine Blood Sm (Negative) 04/18/21 09:11 Urine Nitrite Neg (Negative) 04/18/21 09:11 Urine Bilirubin Neg (Negative) 04/18/21 09:11 Urine Urobilinogen 2.0 mg/dL (<2.0) 04/18/21 09:11 Ur Leukocyte Esterase Lg (Negative) 04/18/21 09:11 Urine WBC (Auto) 34.0 /HPF (0.0-6.0) H 04/18/21 09:11 Urine RBC (Auto) 18.0 /HPF (0.0-6.0) 04/18/21 09:11 U Epithel Cells (Auto) < 1.0 /HPF (0-13.0) 04/16/21 00:09 Urine Bacteria (Auto) 1+ /HPF (Negative) 04/16/21 00:09 Urine Creatinine 24.4 mg/dL (0.1-20.0) H 04/16/21 00:12 Urine Sodium 97 mmol/L 04/16/21 00:12 Salicylates 4.1 mg/dL (2.8-20.0) 04/15/21 17:20 Acetaminophen 5.0 ug/mL (10.0-30.0) L 04/15/21 17:20 Plasma/Serum Alcohol 0.02 % (0-0.07) 04/15/21 17:20 Coronavirus (PCR) Negative (Negative) 04/16/21 Unknown Microbiology: Microbiology 04/18/21 09:11 Urine,Clean Catch Urine Culture - Preliminary Gram Negative Zeb 04/15/21 17:30 Peripheral/Venous Blood Culture - Preliminary NO GROWTH AFTER 4 DAYS 04/15/21 17:20 Peripheral/Venous Blood Culture - Preliminary NO GROWTH AFTER 4 DAYS 04/18/21 15:27 Peripheral/Venous Blood Culture - Preliminary NO GROWTH AFTER 24 HOURS 04/18/21 15:27 Peripheral/Venous Blood Culture - Preliminary NO GROWTH AFTER 24 HOURS 04/16/21 15:38 Tracheal Aspirate Sputum Culture - Final Kerr/IV: Voiding Method Indwelling Catheter Active Medications - Current Medications Current Medications: Generic Name Dose Route Start Last Admin Trade Name Freq PRN Reason Stop Dose Admin Acetaminophen 650 mg 04/15/21 19:11 04/19/21 23:33 Acetaminophen 325 Mg Tab PO 650 mg Q6H PRN Administration Pain MILD(1-3)/Fever >100.5/SEXTON Lipase/Protease/Amylase 1 each 04/16/21 12:52 Lipase 10,500/Protease 25,000/Amylase 43,750 (Units) Dr Cap FEEDTUBE PRN PRN For Clogged Feeding Tube Bisacodyl 10 mg 05/18/21 11:01 04/17/21 13:46 Bisacodyl 10 Mg Rect Supp MT 10 mg QDAY PRN Administration Constipation Brimonidine Tartrate 1 drops 04/17/21 22:00 04/20/21 09:19 Brimonidine 0.15% Ophth Soln OU 1 drops BID WOLFGANG Administration Famotidine 20 mg 04/17/21 10:00 04/20/21 09:07 Famotidine 20 Mg Tab PO 20 mg DAILY WOLFGANG Administration Heparin Sodium (Porcine) 5,000 unit 04/15/21 22:00 04/20/21 09:08 Heparin 5,000 Unit/1 Ml Vial SUB-Q 5,000 unit Q12HR WOLFGANG Administration Hydralazine HCl 10 mg 04/16/21 18:00 04/20/21 04:36 Hydralazine 20 Mg/1 Ml Inj IV 10 mg Q4HR PRN Administration Hypertension Hydralazine HCl 50 mg 04/20/21 14:00 Hydralazine 25 Mg Tab PO Q8HR WOLFGANG Hydrophilic Ointment 1 applic 04/15/21 17:24 Lip Therapy Vaseline TP Q2HR PRN Dry Lips Propofol 1,000 mg in 100 mls @ 2.91 mls/hr 04/15/21 18:00 04/20/21 07:28 Diprivan 10 Mg/Ml IV 0 mcg/kg/min TITR WOLFGANG 0 mls/hr Titration Protocol 5 MCG/KG/MIN Ceftriaxone Sodium 1 gm in 50 mls @ 100 mls/hr 04/18/21 15:00 04/19/21 15:21 Rocephin/Ns 1 Gm/50 Ml IV 100 mls/hr Q24H WOLFGANG Administration Protocol Insulin Glargine 5 units 04/19/21 09:00 04/20/21 09:08 Insulin Glargine 100 Units/Ml SUB-Q 5 units QAMDIAB WOLFGANG Administration Insulin Human Lispro 0 unit 04/16/21 15:00 04/20/21 12:16 Insulin Lispro 100 Unit/Ml SUB-Q 2 unit Q6HR WOLFGANG Administration Protocol Latanoprost 1 drops 04/17/21 18:00 04/19/21 18:08 Latanoprost 0.005% Ophth Soln 2.5 Ml OU 1 drops QPM WOLFGANG Administration Levothyroxine Sodium 25 mcg 04/19/21 06:00 04/20/21 06:33 Levothyroxine 25 Mcg Tab PO 25 mcg DAILY@0600 WOLFGANG Administration Metoprolol Tartrate 25 mg 04/19/21 10:00 04/20/21 09:07 Metoprolol Tartrate 25 Mg Tab PO 25 mg BID WOLFGANG Administration Modafinil 100 mg 04/19/21 10:00 04/20/21 09:07 Modafinil 100 Mg Tab PO 100 mg QAM WOLFGANG Administration Multi-Ingred Cream/Lotion/Oil/Oint 1 applic 04/15/21 17:24 04/16/21 11:19 Mineral Oil/Petrolatum, White Ophth Oint 3.5 Gm OU 1 applic Q4HR PRN Administration Dry Eye(s) Pravastatin Sodium 20 mg 04/19/21 22:00 04/19/21 21:48 Pravastatin 20 Mg Tab PO 20 mg QHS WOLFGANG Administration Simple Syrup 15 ml 04/16/21 12:52 Simple Syrup 15 Ml FEEDTUBE PRN PRN Hypoglycemia Simple Syrup 30 ml 04/16/21 12:52 Simple Syrup 15 Ml FEEDTUBE PRN PRN Hypoglycemia Sodium Bicarbonate 325 mg 04/16/21 12:52 Sodium Bicarbonate 325 Mg Tab FEEDTUBE PRN PRN For Clogged Feeding Tube Sodium Chloride 10 ml 04/15/21 22:00 04/20/21 09:09 Sodium Chloride 0.9% 10 Ml Flush Syringe IV 10 ml BID WOLFGANG Administration Sodium Chloride 10 ml 04/15/21 19:11 Sodium Chloride 0.9% 10 Ml Flush Syringe IV PRN PRN LINE FLUSH Timolol Maleate 1 drops 04/19/21 10:00 04/20/21 09:19 Timolol 0.5% Ophth Soln 5 Ml OU 1 drops QDAY WOLFGANG Administration Nutrition/Malnutrition Assess - Dietary Evaluation Nutrition/Malnutrition Findings: Nutrition Notes Start: 04/16/21 12:31 Freq: Status: Active Protocol: Document 04/19/21 10:52 EDWARD (Rec: 04/19/21 10:57 EDWARD [id number]) Co-Sign 04/19/21 10:52 MK Nutrition Notes Need for Assessment generated from: MD Order Initial or Follow up Reassessment Current Diagnosis Acute Kidney Injury,Diabetes, Hypertension,Respiratory Failure Other Pertinent Diagnosis Dementia, AMS, hx BrCA, [place] Current Diet Nepro at 35ml/hr Labs/Tests Na 133 K 2.8 BUN 43 Cr 2.7 BG 255 Ca 8.0 Pertinent Medications Kcl 40 meq Insulin Height 5 ft 6 in Weight 97 kg [place] Body Weight (kg) 59.09 BMI 34.4 Weight Status Obese Subjective/Other Information MD order for write/manage TF. Per chart, pt has dilated small bowel loops, but able to resume TF. TF running at goal at time of visit. RN notified about formula change. Percent of energy/protein needs met: 100%/58% Burn Absent Trauma Absent Difficulty In Swallowing Current % PO Negligible Minimum of two criteria No physical signs of malnutrition #1 Nutrition Diagnosis Inadequate oral intake Diagnosis Progress(for reassessment Continues documentation) Is patient on ventilator? Yes Is Patient Ambulatory and/or Out of Bed No REE-([facility]-confined to bed) 1748.712 Kcal/Kg value to use for calculation 15 Approximate Energy Requirements Using 1455 kcal/Kg Calculation Used for Recommendations Kcal/kg Additional Notes protien needs: >118g (>2 g/ kgIBW) Fluid needs: 1 ml/kcal Nutrition Intervention Change Diet Order: Continue TF Nutrition Support: Initiate Glucerna 1.2 at 20ml/ hr and increase by 15ml q8h until goal rate of 50ml/hr. Flush 50ml q4h for hyponatremia. Flush 80 ml q4h once hyponatremia resolves. Kcal 1,440 Protein (gm) 72 Fluid (mL) 966 Goal #1 Meet 75% energy and protein needs as best as possible via TF Anticipated Discharge Needs: unable to determine at this time Follow-Up By: 04/23/21 Additional Comments F/U for TF formula change and tolerance
[2021-04-20] MEDS ORDERED: INSULIN GLARGINE 100 UNITS/ML SUB-Q SCH (14:06)
[2021-04-20] MEDS: cefTRIAXone/NS 1 GM/50 ML 1 GM/50 ML BAG IV SCH (14:06)
[2021-04-20] MEDS: hydrALAZINE 25 MG TAB PO SCH ×2 (14:07→21:23)
[2021-04-20] MEDS ORDERED: GLYCOPYRROLATE 0.4 MG/2 ML INJ IV ONE (15:16)
--- NOTE | 2021-04-20 15:28 | Progress Note ---
Assessment and Plan Acute respiratory failure, on mechanical ventilatory support. Acute toxic metabolic encephalopathy Hypoglycemia ROJELIO Hyperkalemia Rhabdomyolysis Possible seizure activity DM II HTN CAD Obesity H/O breast cancer H/O TIA Leukocytosis Elevated serum TSH, possible hypothyroidism - Robinul 0.2 mg IV X 1 - hold tube feeds X 2-4 hours then extubate - BIPAP scheduled qhs thereafter, with prn daytime use - place scopolamine patch - continue Rocephin X 5 days for UTI re: gm -ve rods in culture - continue Provigil - follow EEG - continue care as below otherwise; - continue to wean supplemental oxygen for target O2 sat's > 90% acutely - VAP bundle addressed - continue lung protective strategies - continue bronchodilators with pulmonary hygiene per RT - continue Daily SAT and SBT assessment as tolerated - wean per pulmonary driven protocols otherwise - continue accuchecks with glycemic control per SSI (While critically ill target blood glucose of 140-180 mg/dL; avoid hypoglycemia) - sedation prn for target RASS 0 to -1 - avoid nephrotoxins, renally dose all medications - continue to avoid benzodiazepine's, reduce the possibility of delirium - follow clinically off AB's; trend fevers / WBC - prn analgesia per CPOT score - Maintenance of sleep-wake cycle, avoid delirium - continue enteral nutritional support at goal rate as tolerated - G.I. & VTE prophylaxis - PT/OT/ROM exercises - continue mobility protocols for pressure ulcer prophylaxis - Monitor hemodynamics closely - continue other care per attending / other consultants - discharge planning ongoing concurrently .... Re-evaluate in am & prn CONDITION: CRITICAL PROGNOSIS: GUARDED CODE STATUS: FULL CODE The high probability of a clinically significant, sudden or life-threatening deterioration of the [respiratory, cardiovascular, GI & neurologic] system(s) required my full and direct attention, intervention and personal management. The aggregate critical care time was [32] minutes without overlap. Time includes spent on; [x] Data Review and interpretation [x] Patient assessment and monitoring of vital signs [x] Documentation [x] Medication orders and management Subjective Date of service: 04/20/21 Principal diagnosis: Ac. resp failure; AMS; Hypoglycemia; ROJELIO; Hyperkalemia; DM II Interval history: Patient is seen today for: Acute respiratory failure; AMS; Hypoglycemia; ROJELIO; Hyperkalemia; DM II; H/O breast cancer; Elevated serum TSH, possible hypothyroidism Seen and examined at bedside; 24hour events reviewed; nursing and respiratory care staff consulted; no adverse overnight events reported to me; resting peacefully in bed; more alert and appropriate today; following prompts; nod's head yes to extubation question; No N/V/F/C; afebrile; oral secretions moderate Objective Vital Signs - 12hr 04/20/21 04/20/21 04/20/21 03:28 03:30 04:00 Temperature 99.3 F Pulse Rate 77 70 Pulse Rate [ 65 From Monitor] Respiratory 16 15 Rate Blood Pressure 148/57 O2 Sat by Pulse 100 100 Oximetry 04/20/21 04/20/21 04/20/21 04:30 04:36 05:00 Temperature Pulse Rate 75 80 90 Pulse Rate [ From Monitor] Respiratory 14 18 Rate Blood Pressure 182/58 182/58 156/58 O2 Sat by Pulse 100 99 Oximetry 04/20/21 04/20/21 04/20/21 05:30 06:00 06:30 Temperature Pulse Rate 78 74 93 H Pulse Rate [ From Monitor] Respiratory 16 18 15 Rate Blood Pressure 156/58 165/63 137/68 O2 Sat by Pulse 99 100 100 Oximetry 04/20/21 04/20/21 04/20/21 07:00 07:27 07:30 Temperature 99.4 F Pulse Rate 82 79 Pulse Rate [ From Monitor] Respiratory 14 16 Rate Blood Pressure 137/69 166/57 O2 Sat by Pulse 100 100 Oximetry 04/20/21 04/20/21 04/20/21 07:35 08:00 08:30 Temperature Pulse Rate 78 92 H 85 Pulse Rate [ 77 From Monitor] Respiratory 25 H 19 Rate Blood Pressure 166/57 166/57 192/83 O2 Sat by Pulse 99 98 98 Oximetry 04/20/21 04/20/21 04/20/21 09:00 09:07 09:30 Temperature Pulse Rate 135 H 136 H 119 H Pulse Rate [ From Monitor] Respiratory 27 H 23 Rate Blood Pressure 137/77 137/77 156/75 O2 Sat by Pulse 99 95 Oximetry 04/20/21 04/20/21 04/20/21 10:00 10:30 11:00 Temperature Pulse Rate 79 90 90 Pulse Rate [ From Monitor] Respiratory 22 28 H 25 H Rate Blood Pressure 154/74 151/70 151/70 O2 Sat by Pulse 100 100 99 Oximetry 04/20/21 04/20/21 04/20/21 11:30 11:32 12:00 Temperature 98.6 F Pulse Rate 70 94 H 81 Pulse Rate [ 74 From Monitor] Respiratory 20 27 H 20 Rate Blood Pressure 147/60 126/71 O2 Sat by Pulse 99 99 100 Oximetry 04/20/21 04/20/21 04/20/21 12:30 13:00 13:30 Temperature Pulse Rate 71 71 72 Pulse Rate [ From Monitor] Respiratory 20 21 11 L Rate Blood Pressure 126/71 161/55 161/55 O2 Sat by Pulse 100 100 100 Oximetry 04/20/21 04/20/21 04/20/21 14:00 14:07 14:30 Temperature Pulse Rate 75 80 81 Pulse Rate [ From Monitor] Respiratory 28 H 17 Rate Blood Pressure 161/55 178/97 178/97 O2 Sat by Pulse 100 100 Oximetry Constitutional: no acute distress, other (elderly obese female with mildly increased respiratory effort at rest on MVS) Eyes: non-icteric ENT: oropharynx moist, oropharyngeal exudate pre (clear, moderate amount), other (ETT 23 cm RICARDO) Neck: supple, no lymphadenopathy, no JVD Effort: mildly labored Ascultation: Bilateral: diminished breath sounds, rhonchi (scant) Percussion: Bilateral: not dull Cardiovascular: regular rate and rhythm Gastrointestinal: normoactive bowel sounds, soft, non-tender, non-distended (protuberant), other (NGT to LIS) Integumentary: normal Extremities: no cyanosis, no edema, pulses normal, no ischemia or petechiae Neurologic: non-focal exam (grossly with intermittent spontaneous movement to extremities but ? mild posturing (decerebrate)), pupils equal and round, CN II- XII normal Psychiatric: mood appropriate, affect normal CBC and BMP: 04/20/21 03:32 04/20/21 03:32 ABG, PT/INR, D-dimer: ABG ABG pH 7.526 (7.320-7.450) H 04/20/21 02:56 POC ABG pCO2 35.7 mmHg (32.0-48.0) 04/20/21 02:56 POC ABG pO2 105.1 mmHg (83-108) 04/20/21 02:56 POC ABG HCO3 28.9 04/20/21 02:56 ABG O2 Saturation 98.2 (0-100) 04/20/21 02:56 PT/INR, D-dimer PT 12.2 Sec. (12.2-14.9) 04/15/21 17:20 INR 0.91 (0.87-1.13) 04/15/21 17:20 Abnormal lab findings: Abnormal Labs 04/15/21 04/15/21 04/15/21 17:20 17:20 17:20 WBC 11.2 H RBC Hct 43.0 H MCV RDW 15.3 H Plt Count Lymph % (Auto) 12.8 L Seg Neutrophils % 82.4 H Seg Neuts % (Manual) Lymphocytes % (Manual) Monocytes % (Manual) Seg Neutrophils # 9.3 H Seg Neutrophils # Man Lymphocytes # (Manual) Monocytes # (Manual) ABG pH POC ABG pCO2 POC ABG pO2 ABG Hemoglobin ABG Oxyhemoglobin ABG Sodium ABG Potassium ABG Chloride ABG Glucose Carboxyhemoglobin Sodium 129 L Potassium 7.1 H* Chloride 91.9 L BUN 35 H Creatinine 2.8 H Glucose POC Glucose Calcium Magnesium AST 69 H Total Creatine Kinase 1000 H CK-MB (CK-2) Troponin T Albumin HDL Cholesterol TSH Free T3 Index Arterial Blood Glucose Arterial Blood Ionized Calcium Urine pH Urine WBC (Auto) Urine Creatinine Acetaminophen 04/15/21 04/15/21 04/15/21 17:20 17:20 20:49 WBC RBC Hct MCV RDW Plt Count Lymph % (Auto) Seg Neutrophils % Seg Neuts % (Manual) Lymphocytes % (Manual) Monocytes % (Manual) Seg Neutrophils # Seg Neutrophils # Man Lymphocytes # (Manual) Monocytes # (Manual) ABG pH 7.557 H POC ABG pCO2 30.0 L POC ABG pO2 493.3 H ABG Hemoglobin ABG Oxyhemoglobin 99.0 H ABG Sodium 131.5 L ABG Potassium 4.7 H ABG Chloride 94.0 L ABG Glucose 218 H Carboxyhemoglobin Sodium Potassium Chloride BUN Creatinine Glucose POC Glucose Calcium Magnesium AST Total Creatine Kinase CK-MB (CK-2) Troponin T Albumin HDL Cholesterol TSH 14.190 H Free T3 Index Arterial Blood Glucose 218 H Arterial Blood Ionized Calcium 5.4 H Urine pH Urine WBC (Auto) Urine Creatinine Acetaminophen 5.0 L 04/15/21 04/15/21 04/16/21 21:23 23:15 00:09 WBC RBC Hct MCV RDW Plt Count Lymph % (Auto) Seg Neutrophils % Seg Neuts % (Manual) Lymphocytes % (Manual) Monocytes % (Manual) Seg Neutrophils # Seg Neutrophils # Man Lymphocytes # (Manual) Monocytes # (Manual) ABG pH POC ABG pCO2 POC ABG pO2 ABG Hemoglobin ABG Oxyhemoglobin ABG Sodium ABG Potassium ABG Chloride ABG Glucose Carboxyhemoglobin Sodium Potassium Chloride BUN Creatinine Glucose POC Glucose 173 H 207 H Calcium Magnesium AST Total Creatine Kinase CK-MB (CK-2) Troponin T Albumin HDL Cholesterol TSH Free T3 Index Arterial Blood Glucose Arterial Blood Ionized Calcium Urine pH 9.0 H Urine WBC (Auto) Urine Creatinine Acetaminophen 04/16/21 04/16/21 04/16/21 00:12 00:19 03:43 WBC RBC Hct MCV RDW Plt Count Lymph % (Auto) Seg Neutrophils % Seg Neuts % (Manual) Lymphocytes % (Manual) Monocytes % (Manual) Seg Neutrophils # Seg Neutrophils # Man Lymphocytes # (Manual) Monocytes # (Manual) ABG pH 7.461 H POC ABG pCO2 POC ABG pO2 ABG Hemoglobin ABG Oxyhemoglobin ABG Sodium 126.8 L ABG Potassium 5.4 H ABG Chloride 90.0 L ABG Glucose 325 H Carboxyhemoglobin Sodium Potassium 6.7 H* Chloride BUN Creatinine Glucose POC Glucose Calcium Magnesium AST Total Creatine Kinase CK-MB (CK-2) Troponin T Albumin HDL Cholesterol TSH Free T3 Index Arterial Blood Glucose 325 H Arterial Blood Ionized Calcium Urine pH Urine WBC (Auto) Urine Creatinine 24.4 H Acetaminophen 04/16/21 04/16/21 04/16/21 03:55 05:02 05:02 WBC 21.2 H RBC Hct 43.4 H MCV 98 H RDW Plt Count Lymph % (Auto) Seg Neutrophils % Seg Neuts % (Manual) 84.0 H Lymphocytes % (Manual) 2.0 L Monocytes % (Manual) 10.0 H Seg Neutrophils # Seg Neutrophils # Man 17.8 H Lymphocytes # (Manual) 0.4 L Monocytes # (Manual) 2.1 H ABG pH POC ABG pCO2 POC ABG pO2 ABG Hemoglobin ABG Oxyhemoglobin ABG Sodium ABG Potassium ABG Chloride ABG Glucose Carboxyhemoglobin Sodium 131 L Potassium 5.9 H Chloride 88.7 L BUN 34 H Creatinine 2.9 H Glucose 249 H POC Glucose 391 H Calcium 10.4 H Magnesium AST 65 H Total Creatine Kinase CK-MB (CK-2) Troponin T Albumin 3.8 L HDL Cholesterol TSH Free T3 Index Arterial Blood Glucose Arterial Blood Ionized Calcium Urine pH Urine WBC (Auto) Urine Creatinine Acetaminophen 04/16/21 04/16/21 04/16/21 11:34 16:09 18:15 WBC RBC Hct MCV RDW Plt Count Lymph % (Auto) Seg Neutrophils % Seg Neuts % (Manual) Lymphocytes % (Manual) Monocytes % (Manual) Seg Neutrophils # Seg Neutrophils # Man Lymphocytes # (Manual) Monocytes # (Manual) ABG pH POC ABG pCO2 POC ABG pO2 ABG Hemoglobin ABG Oxyhemoglobin ABG Sodium ABG Potassium ABG Chloride ABG Glucose Carboxyhemoglobin Sodium Potassium Chloride BUN Creatinine Glucose POC Glucose 382 H 300 H 287 H Calcium Magnesium AST Total Creatine Kinase CK-MB (CK-2) Troponin T Albumin HDL Cholesterol TSH Free T3 Index Arterial Blood Glucose Arterial Blood Ionized Calcium Urine pH Urine WBC (Auto) Urine Creatinine Acetaminophen 04/16/21 04/16/21 04/16/21 19:01 19:01 19:01 WBC RBC Hct MCV RDW Plt Count Lymph % (Auto) Seg Neutrophils % Seg Neuts % (Manual) Lymphocytes % (Manual) Monocytes % (Manual) Seg Neutrophils # Seg Neutrophils # Man Lymphocytes # (Manual) Monocytes # (Manual) ABG pH POC ABG pCO2 POC ABG pO2 ABG Hemoglobin ABG Oxyhemoglobin ABG Sodium ABG Potassium ABG Chloride ABG Glucose Carboxyhemoglobin Sodium 125 L Potassium 5.5 H 5.6 H Chloride 84.5 L BUN 37 H Creatinine 3.5 H Glucose 236 H POC Glucose Calcium Magnesium AST Total Creatine Kinase CK-MB (CK-2) Troponin T Albumin HDL Cholesterol TSH Free T3 Index 1.1 L Arterial Blood Glucose Arterial Blood Ionized Calcium Urine pH Urine WBC (Auto) Urine Creatinine Acetaminophen 04/16/21 04/17/21 04/17/21 23:48 03:09 05:04 WBC RBC Hct MCV RDW Plt Count Lymph % (Auto) Seg Neutrophils % Seg Neuts % (Manual) Lymphocytes % (Manual) Monocytes % (Manual) Seg Neutrophils # Seg Neutrophils # Man Lymphocytes # (Manual) Monocytes # (Manual) ABG pH 7.518 H POC ABG pCO2 POC ABG pO2 ABG Hemoglobin ABG Oxyhemoglobin ABG Sodium 126.4 L ABG Potassium ABG Chloride 89.0 L ABG Glucose 200 H Carboxyhemoglobin Sodium 129 L Potassium Chloride 86.1 L BUN 39 H Creatinine 3.5 H Glucose 202 H POC Glucose 243 H Calcium Magnesium AST Total Creatine Kinase 750 H CK-MB (CK-2) Troponin T 0.119 H* D Albumin HDL Cholesterol 61 H TSH Free T3 Index Arterial Blood Glucose 200 H Arterial Blood Ionized Calcium 4.4 L Urine pH Urine WBC (Auto) Urine Creatinine Acetaminophen 04/17/21 04/17/21 04/17/21 06:14 11:55 15:35 WBC RBC Hct MCV RDW Plt Count Lymph % (Auto) Seg Neutrophils % Seg Neuts % (Manual) Lymphocytes % (Manual) Monocytes % (Manual) Seg Neutrophils # Seg Neutrophils # Man Lymphocytes # (Manual) Monocytes # (Manual) ABG pH POC ABG pCO2 POC ABG pO2 ABG Hemoglobin ABG Oxyhemoglobin ABG Sodium ABG Potassium ABG Chloride ABG Glucose Carboxyhemoglobin Sodium Potassium Chloride BUN Creatinine Glucose POC Glucose 208 H 276 H Calcium Magnesium AST Total Creatine Kinase 615 H CK-MB (CK-2) 9.1 H Troponin T Albumin HDL Cholesterol TSH Free T3 Index Arterial Blood Glucose Arterial Blood Ionized Calcium Urine pH Urine WBC (Auto) Urine Creatinine Acetaminophen 04/17/21 04/17/21 04/18/21 15:35 17:07 00:01 WBC 17.1 H RBC Hct MCV RDW Plt Count Lymph % (Auto) Seg Neutrophils % Seg Neuts % (Manual) Lymphocytes % (Manual) Monocytes % (Manual) Seg Neutrophils # Seg Neutrophils # Man Lymphocytes # (Manual) Monocytes # (Manual) ABG pH POC ABG pCO2 POC ABG pO2 ABG Hemoglobin ABG Oxyhemoglobin ABG Sodium ABG Potassium ABG Chloride ABG Glucose Carboxyhemoglobin Sodium Potassium Chloride BUN Creatinine Glucose POC Glucose 148 H 192 H Calcium Magnesium AST Total Creatine Kinase CK-MB (CK-2) Troponin T Albumin HDL Cholesterol TSH Free T3 Index Arterial Blood Glucose Arterial Blood Ionized Calcium Urine pH Urine WBC (Auto) Urine Creatinine Acetaminophen 04/18/21 04/18/21 04/18/21 03:00 05:24 05:34 WBC 15.3 H RBC 3.34 L Hct MCV RDW 15.3 H Plt Count Lymph % (Auto) Seg Neutrophils % Seg Neuts % (Manual) Lymphocytes % (Manual) Monocytes % (Manual) Seg Neutrophils # Seg Neutrophils # Man Lymphocytes # (Manual) Monocytes # (Manual) ABG pH 7.497 H POC ABG pCO2 POC ABG pO2 77.7 L ABG Hemoglobin 10.4 L ABG Oxyhemoglobin ABG Sodium 129.7 L ABG Potassium 2.8 L ABG Chloride 92.0 L ABG Glucose 134 H Carboxyhemoglobin 0.3 L Sodium Potassium Chloride BUN Creatinine Glucose POC Glucose 162 H Calcium Magnesium AST Total Creatine Kinase CK-MB (CK-2) Troponin T Albumin HDL Cholesterol TSH Free T3 Index Arterial Blood Glucose 134 H Arterial Blood Ionized Calcium 4.3 L Urine pH Urine WBC (Auto) Urine Creatinine Acetaminophen 04/18/21 04/18/21 04/18/21 05:34 05:43 09:11 WBC RBC Hct MCV RDW Plt Count Lymph % (Auto) Seg Neutrophils % Seg Neuts % (Manual) Lymphocytes % (Manual) Monocytes % (Manual) Seg Neutrophils # Seg Neutrophils # Man Lymphocytes # (Manual) Monocytes # (Manual) ABG pH POC ABG pCO2 POC ABG pO2 ABG Hemoglobin ABG Oxyhemoglobin ABG Sodium ABG Potassium ABG Chloride ABG Glucose Carboxyhemoglobin Sodium 134 L Potassium 3.0 L D Chloride 93.5 L BUN 42 H Creatinine 3.1 H Glucose 152 H POC Glucose Calcium Magnesium 1.40 L AST Total Creatine Kinase 427 H CK-MB (CK-2) Troponin T 0.081 H D Albumin HDL Cholesterol TSH Free T3 Index Arterial Blood Glucose Arterial Blood Ionized Calcium Urine pH Urine WBC (Auto) 34.0 H Urine Creatinine Acetaminophen 04/18/21 04/18/21 04/18/21 11:34 17:24 23:18 WBC RBC Hct MCV RDW Plt Count Lymph % (Auto) Seg Neutrophils % Seg Neuts % (Manual) Lymphocytes % (Manual) Monocytes % (Manual) Seg Neutrophils # Seg Neutrophils # Man Lymphocytes # (Manual) Monocytes # (Manual) ABG pH POC ABG pCO2 POC ABG pO2 ABG Hemoglobin ABG Oxyhemoglobin ABG Sodium ABG Potassium ABG Chloride ABG Glucose Carboxyhemoglobin Sodium Potassium Chloride BUN Creatinine Glucose POC Glucose 170 H 151 H 182 H Calcium Magnesium AST Total Creatine Kinase CK-MB (CK-2) Troponin T Albumin HDL Cholesterol TSH Free T3 Index Arterial Blood Glucose Arterial Blood Ionized Calcium Urine pH Urine WBC (Auto) Urine Creatinine Acetaminophen 04/19/21 04/19/2121 04:09 05:19 07:30 WBC 14.8 H RBC 3.20 L Hct MCV 98 H RDW Plt Count 137 L Lymph % (Auto) Seg Neutrophils % Seg Neuts % (Manual) Lymphocytes % (Manual) Monocytes % (Manual) Seg Neutrophils # Seg Neutrophils # Man Lymphocytes # (Manual) Monocytes # (Manual) ABG pH 7.476 H POC ABG pCO2 POC ABG pO2 79.4 L ABG Hemoglobin 10.7 L ABG Oxyhemoglobin ABG Sodium 131.2 L ABG Potassium 2.8 L ABG Chloride 94.0 L ABG Glucose 209 H Carboxyhemoglobin 0.3 L Sodium Potassium Chloride BUN Creatinine Glucose POC Glucose 204 H Calcium Magnesium AST Total Creatine Kinase CK-MB (CK-2) Troponin T Albumin HDL Cholesterol TSH Free T3 Index Arterial Blood Glucose 209 H Arterial Blood Ionized Calcium Urine pH Urine WBC (Auto) Urine Creatinine Acetaminophen 04/19/21 04/19/21 04/19/21 07:30 10:35 11:48 WBC RBC Hct MCV RDW Plt Count Lymph % (Auto) Seg Neutrophils % Seg Neuts % (Manual) Lymphocytes % (Manual) Monocytes % (Manual) Seg Neutrophils # Seg Neutrophils # Man Lymphocytes # (Manual) Monocytes # (Manual) ABG pH 7.464 H POC ABG pCO2 POC ABG pO2 81.8 L ABG Hemoglobin 10.8 L ABG Oxyhemoglobin ABG Sodium 129.6 L ABG Potassium ABG Chloride 95.0 L ABG Glucose 238 H Carboxyhemoglobin Sodium 133 L Potassium 2.8 L* Chloride 94.4 L BUN 43 H Creatinine 2.7 H Glucose 255 H POC Glucose 208 H Calcium 8.0 L Magnesium AST Total Creatine Kinase CK-MB (CK-2) Troponin T 0.060 H D Albumin HDL Cholesterol TSH Free T3 Index Arterial Blood Glucose 238 H Arterial Blood Ionized Calcium Urine pH Urine WBC (Auto) Urine Creatinine Acetaminophen 04/19/21 04/19/21 04/20/21 20:40 23:04 02:56 WBC RBC Hct MCV RDW Plt Count Lymph % (Auto) Seg Neutrophils % Seg Neuts % (Manual) Lymphocytes % (Manual) Monocytes % (Manual) Seg Neutrophils # Seg Neutrophils # Man Lymphocytes # (Manual) Monocytes # (Manual) ABG pH 7.526 H POC ABG pCO2 POC ABG pO2 ABG Hemoglobin 10.5 L ABG Oxyhemoglobin ABG Sodium 133.5 L ABG Potassium ABG Chloride ABG Glucose 157 H Carboxyhemoglobin 0.3 L Sodium Potassium 3.4 L D Chloride BUN Creatinine Glucose POC Glucose 173 H Calcium Magnesium AST Total Creatine Kinase CK-MB (CK-2) Troponin T Albumin HDL Cholesterol TSH Free T3 Index Arterial Blood Glucose 157 H Arterial Blood Ionized Calcium Urine pH Urine WBC (Auto) Urine Creatinine Acetaminophen 04/20/21 04/20/21 04/20/21 03:32 03:32 05:42 WBC 13.2 H RBC 3.18 L Hct MCV RDW Plt Count Lymph % (Auto) Seg Neutrophils % Seg Neuts % (Manual) Lymphocytes % (Manual) Monocytes % (Manual) Seg Neutrophils # Seg Neutrophils # Man Lymphocytes # (Manual) Monocytes # (Manual) ABG pH POC ABG pCO2 POC ABG pO2 ABG Hemoglobin ABG Oxyhemoglobin ABG Sodium ABG Potassium ABG Chloride ABG Glucose Carboxyhemoglobin Sodium 135 L Potassium Chloride 96.7 L BUN 40 H Creatinine 2.3 H Glucose 142 H POC Glucose 160 H Calcium Magnesium AST Total Creatine Kinase CK-MB (CK-2) Troponin T 0.065 H Albumin HDL Cholesterol TSH Free T3 Index Arterial Blood Glucose Arterial Blood Ionized Calcium Urine pH Urine WBC (Auto) Urine Creatinine Acetaminophen 04/20/21 11:50 WBC RBC Hct MCV RDW Plt Count Lymph % (Auto) Seg Neutrophils % Seg Neuts % (Manual) Lymphocytes % (Manual) Monocytes % (Manual) Seg Neutrophils # Seg Neutrophils # Man Lymphocytes # (Manual) Monocytes # (Manual) ABG pH POC ABG pCO2 POC ABG pO2 ABG Hemoglobin ABG Oxyhemoglobin ABG Sodium ABG Potassium ABG Chloride ABG Glucose Carboxyhemoglobin Sodium Potassium Chloride BUN Creatinine Glucose POC Glucose 194 H Calcium Magnesium AST Total Creatine Kinase CK-MB (CK-2) Troponin T Albumin HDL Cholesterol TSH Free T3 Index Arterial Blood Glucose Arterial Blood Ionized Calcium Urine pH Urine WBC (Auto) Urine Creatinine Acetaminophen Chest x-ray: other (none today) Allied health notes reviewed: nursing
[2021-04-20] MEDS: LATANOPROST 0.005% OPHTH SOLN 2.5 ML OU SCH (17:16)
[2021-04-20] MEDS: SCOPOLAMINE TRANSDERMAL PATCH 72 HR TD SCH (17:21)
[2021-04-20] MEDS ORDERED: EPINEPHrine RACEMIC 2.25% 0.5ML NEBU IH ONE (19:26)
[2021-04-20] MEDS: PRAVASTATIN 20 MG TAB PO SCH (21:24)
[2021-04-21] MEDS: INSULIN LISPRO 100 UNIT/ML SUB-Q SCH ×5 (01:36→23:46)
[2021-04-21 06:09] LABS: Hematocrit 31.5 % (30.3-42.9); Hemoglobin 10.3 gm/dl (10.1-14.3); Mean Corpuscular HGB Conc 33 % (30-34); Mean Corpuscular Volume 99 fl (79-97); Platelet Count 178 K/mm3 (140-440); Red Cell Distribution Width 15.3 % (13.2-15.2)
[2021-04-21 06:26] LABS: Calcium 9.3 mg/dL (8.4-10.2)
[2021-04-21] MEDS: hydrALAZINE 25 MG TAB PO SCH (06:26)
[2021-04-21] MEDS: LEVOTHYROXINE 25 MCG TAB PO SCH (06:27)
[2021-04-21] MEDS ORDERED: SODIUM PHOSPHATE 15 MMOL in SODIUM CHLORIDE 0.9% 250ML 150 ML IV ONE (09:00)
[2021-04-21] MEDS: INSULIN GLARGINE 100 UNITS/ML SUB-Q SCH (10:02)
[2021-04-21] MEDS: MODAFINIL 100 MG TAB PO SCH (10:03)
[2021-04-21] MEDS: FAMOTIDINE 20 MG TAB PO SCH (10:03)
[2021-04-21] MEDS: METOPROLOL TARTRATE 25 MG TAB PO SCH ×2 (10:03→21:40)
[2021-04-21] MEDS: HEPARIN 5,000 UNIT/1 ML VIAL SUB-Q SCH ×2 (10:04→21:41)
[2021-04-21] MEDS: TIMOLOL 0.5% OPHTH SOLN 5 ML OU SCH (10:06)
[2021-04-21] MEDS: BRIMONIDINE 0.15% OPHTH SOLN OU SCH ×2 (10:06→21:42)
[2021-04-21] MEDS: hydrALAZINE 20 MG/1 ML INJ IV PRN (10:32)
[2021-04-21] MEDS ORDERED: EPINEPHrine RACEMIC 2.25% 0.5ML NEBU IH ONE (12:17)
--- NOTE | 2021-04-21 12:34 | Progress Note ---
Assessment and Plan 1. Acute kidney injury: Likely vasomotor ROJELIO. ATN likely. Renal US negative for hydro. Baseline renal function is unknown. Monitor renal function. Non-oliguric. Creatinine level is improving. Avoid nephrotoxic agents. Meds dosage based on GFR. 2. FEN: Hypokalemia, K level is better, monitor. Hyponatremia, monitor. Salt tablets as needed. Monitor lytes and volume status. 3. Acute hypoxemic respiratory failure: Currently intubated, on vent. 4. Acute encephalopathy: Hypoglycemia. MRI brain negative. 5. Leukocytosis. 6. Hypertension. 7. DM type 2. 8. Mild rhabdomyolysis. 9. Mildly complex R renal cyst. Subjective: Patient was not examined today. However the examination findings from other providers noted. The current and previous medical records are reviewed in detail as are laboratory and imaging data reviewed when appropriate. Medications being given are also reviewed. In addition the case has been discussed with the attending hospitalist and the nurse when needed. New renal recommendations as above. Subjective Date of service: 04/21/21 Principal diagnosis: Ac. resp failure; AMS; Hypoglycemia; ROJELIO; Hyperkalemia; DM II Objective - Vital Signs Vital signs: Vital Signs - 12hr 04/21/21 04/21/21 04/21/21 00:42 01:00 01:30 Temperature Pulse Rate 76 82 74 Pulse Rate [ From Monitor] Respiratory 28 H 20 17 Rate Blood Pressure 149/65 149/65 140/65 O2 Sat by Pulse 96 98 98 Oximetry 04/21/21 04/21/21 04/21/21 02:00 02:30 03:00 Temperature Pulse Rate 78 84 78 Pulse Rate [ From Monitor] Respiratory 13 14 12 Rate Blood Pressure 142/50 123/60 O2 Sat by Pulse 100 98 97 Oximetry 04/21/21 04/21/21 04/21/21 03:29 03:30 03:42 Temperature 97.9 F Pulse Rate 100 H 73 Pulse Rate [ From Monitor] Respiratory 24 20 Rate Blood Pressure 167/77 195/85 O2 Sat by Pulse 100 99 Oximetry 04/21/21 04/21/21 04/21/21 04:00 04:30 05:00 Temperature Pulse Rate 88 83 82 Pulse Rate [ 79 From Monitor] Respiratory 15 18 18 Rate Blood Pressure 195/85 O2 Sat by Pulse 100 99 99 Oximetry 04/21/21 04/21/21 04/21/21 05:30 06:00 06:24 Temperature Pulse Rate 84 88 Pulse Rate [ From Monitor] Respiratory 19 11 L Rate Blood Pressure 177/75 O2 Sat by Pulse 98 99 97 Oximetry 04/21/21 04/21/21 04/21/21 06:26 06:30 07:00 Temperature Pulse Rate 89 93 H Pulse Rate [ From Monitor] Respiratory 18 14 Rate Blood Pressure 136/58 136/58 143/80 O2 Sat by Pulse 99 98 Oximetry 04/21/21 04/21/21 04/21/21 07:30 07:38 08:00 Temperature Pulse Rate 95 H 80 Pulse Rate [ 92 H From Monitor] Respiratory 25 H 24 Rate Blood Pressure 143/91 153/78 O2 Sat by Pulse 94 97 98 Oximetry 04/21/21 04/21/21 04/21/21 08:30 09:00 10:03 Temperature Pulse Rate 97 H 101 H 78 Pulse Rate [ From Monitor] Respiratory 22 26 H Rate Blood Pressure 153/78 152/96 171/93 O2 Sat by Pulse 100 97 Oximetry 04/21/21 10:32 Temperature Pulse Rate 82 Pulse Rate [ From Monitor] Respiratory Rate Blood Pressure 170/92 O2 Sat by Pulse Oximetry - Lab 04/22/21 08:00 04/22/21 08:00 Most recent lab results ABG pH 7.526 (7.320-7.450) H 04/20/21 02:56 ABG O2 Saturation 98.2 (0-100) 04/20/21 02:56 Calcium 9.3 mg/dL (8.4-10.2) 04/21/21 05:51 Phosphorus 2.10 mg/dL (2.5-4.5) L 04/20/21 03:46 Magnesium 1.90 mg/dL (1.7-2.3) 04/20/21 03:46 Urine Creatinine 24.4 mg/dL (0.1-20.0) H 04/16/21 00:12 Urine Sodium 97 mmol/L 04/16/21 00:12 Medications & Allergies - Medications Allergies/Adverse Reactions: Allergies No Known Allergies Allergy (Unverified 04/15/21 17:41) Home Medications: Home Medications Medication Instructions Recorded Confirmed Last Taken Type Betaxolol HCl [Betoptic S 0.25% 1 drop OU BID 04/16/21 04/16/21 Unknown History SUSP] Bimatoprost [Lumigan 0.01%] 1 drop OU QPM 04/16/21 04/16/21 Unknown History Brimonidine Tartrate [Brimonidine 5 ml OU BID 04/16/21 04/16/21 Unknown History Tartrate 0.2%] Furosemide [Lasix TAB] 40 mg PO QDAY 04/16/21 04/16/21 Unknown History Gabapentin [Neurontin] 300 mg PO Q8HR 04/16/21 04/16/21 Unknown History HYDROcodone/APAP 10-325 [[place] 1 each PO Q6HR PRN 04/16/21 04/16/21 Unknown History 10/325] Hydralazine HCl 50 mg PO Q4HR 04/16/21 04/16/21 Unknown History Insulin Aspart Prot/Insuln Asp 52 units SQ HS 04/16/21 04/16/21 Unknown History [Novolog Mix 70-30 Flexpen] Metoprolol [Lopressor] 25 mg PO BID 04/16/21 04/16/21 Unknown History Pravastatin [Pravachol] 20 mg PO QHS 04/16/21 04/16/21 Unknown History Promethazine [Phenergan] 25 mg PO Q6HR 04/16/21 04/16/21 Unknown History allopurinoL [Zyloprim] 150 mg PO QDAY 04/16/21 04/16/21 Unknown History Active Medications: Generic Name Dose Route Start Last Admin Trade Name Freq PRN Reason Stop Dose Admin Acetaminophen 650 mg 04/15/21 19:11 04/19/21 23:33 Acetaminophen 325 Mg Tab PO 650 mg Q6H PRN Administration Pain MILD(1-3)/Fever >100.5/SEXTON Lipase/Protease/Amylase 1 each 04/16/21 12:52 Lipase 10,500/Protease 25,000/Amylase 43,750 (Units) Dr Simpson FEEDTUBE PRN PRN For Clogged Feeding Tube Bisacodyl 10 mg 04/17/21 11:01 04/17/21 13:46 Bisacodyl 10 Mg Rect Supp ND 10 mg QDAY PRN Administration Constipation Brimonidine Tartrate 1 drops 04/17/21 22:00 04/21/21 10:06 Brimonidine 0.15% Ophth Soln OU 1 drops BID WOLFGANG Administration Famotidine 20 mg 04/17/21 10:00 04/21/21 10:03 Famotidine 20 Mg Tab PO 20 mg DAILY WOLFGANG Administration Heparin Sodium (Porcine) 5,000 unit 04/15/21 22:00 04/21/21 10:04 Heparin 5,000 Unit/1 Ml Vial SUB-Q 5,000 unit Q12HR WOLFGANG Administration Hydralazine HCl 10 mg 04/16/21 18:00 04/21/21 10:32 Hydralazine 20 Mg/1 Ml Inj IV 10 mg Q4HR PRN Administration Hypertension Hydralazine HCl 50 mg 04/20/21 14:00 04/21/21 06:26 Hydralazine 25 Mg Tab PO 50 mg Q8HR WOLFGANG Administration Hydrophilic Ointment 1 applic 04/15/21 17:24 Lip Therapy Vaseline TP Q2HR PRN Dry Lips Propofol 1,000 mg in 100 mls @ 2.91 mls/hr 04/15/21 18:00 04/20/21 07:28 Diprivan 10 Mg/Ml IV 0 mcg/kg/min TITR WOLFGANG 0 mls/hr Titration Protocol 5 MCG/KG/MIN Ceftriaxone Sodium 1 gm in 50 mls @ 100 mls/hr 04/18/21 15:00 04/20/21 14:06 Rocephin/Ns 1 Gm/50 Ml IV 04/22/21 15:29 100 mls/hr Q24H WOLFGANG Administration Protocol Sodium Phosphate 15 mmol/ 155 mls @ 40 mls/hr 04/21/21 09:00 04/21/21 10:02 Sodium Chloride IV 04/21/21 12:52 40 mls/hr Q4H ONE Administration Insulin Glargine 15 units 04/21/21 09:00 04/21/21 10:02 Insulin Glargine 100 Units/Ml SUB-Q 15 units QAMDIAB WOLFGANG Administration Insulin Human Lispro 0 unit 04/16/21 15:00 04/21/21 06:26 Insulin Lispro 100 Unit/Ml SUB-Q Not Given Q6HR WOLFGANG Protocol Latanoprost 1 drops 04/17/21 18:00 04/20/21 17:16 Latanoprost 0.005% Ophth Soln 2.5 Ml OU 1 drops QPM WOLFGANG Administration Levothyroxine Sodium 25 mcg 04/19/21 06:00 04/21/21 06:27 Levothyroxine 25 Mcg Tab PO 25 mcg DAILY@0600 WOLFGANG Administration Metoprolol Tartrate 25 mg 04/19/21 10:00 04/21/21 10:03 Metoprolol Tartrate 25 Mg Tab PO 25 mg BID WOLFGANG Administration Modafinil 100 mg 04/19/21 10:00 04/21/21 10:03 Modafinil 100 Mg Tab PO 100 mg QAM WOLFGANG Administration Multi-Ingred Cream/Lotion/Oil/Oint 1 applic 04/15/21 17:24 04/16/21 11:19 Mineral Oil/Petrolatum, White Ophth Oint 3.5 Gm OU 1 applic Q4HR PRN Administration Dry Eye(s) Pravastatin Sodium 20 mg 04/19/21 22:00 04/20/21 21:24 Pravastatin 20 Mg Tab PO 20 mg QHS WOLFGANG Administration Scopolamine 1 each 04/20/21 18:00 04/20/21 17:21 Scopolamine Transdermal Patch 72 Hr TD 1 each Q3D WOLFGANG Administration Simple Syrup 15 ml 04/16/21 12:52 Simple Syrup 15 Ml FEEDTUBE PRN PRN Hypoglycemia Simple Syrup 30 ml 04/16/21 12:52 Simple Syrup 15 Ml FEEDTUBE PRN PRN Hypoglycemia Sodium Bicarbonate 325 mg 04/16/21 12:52 Sodium Bicarbonate 325 Mg Tab FEEDTUBE PRN PRN For Clogged Feeding Tube Sodium Chloride 10 ml 04/15/21 22:00 04/21/21 10:06 Sodium Chloride 0.9% 10 Ml Flush Syringe IV 10 ml BID WOLFGANG Administration Sodium Chloride 10 ml 04/15/21 19:11 Sodium Chloride 0.9% 10 Ml Flush Syringe IV PRN PRN LINE FLUSH Timolol Maleate 1 drops 04/19/21 10:00 04/21/21 10:06 Timolol 0.5% Ophth Soln 5 Ml OU 1 drops QDAY WOLFGANG Administration
--- NOTE | 2021-04-21 12:52 | Progress Note ---
Assessment and Plan Acute respiratory failure, on mechanical ventilatory support. Acute toxic metabolic encephalopathy Hypoglycemia ROJELIO Hyperkalemia Rhabdomyolysis Possible seizure activity DM II HTN CAD Obesity H/O breast cancer H/O TIA Leukocytosis Elevated serum TSH, possible hypothyroidism - racemic epinephrine X 1 - begin Solumedrol 30 mg I.V. q6h X 8 doses re: ? laryngeal edema)- - continue BIPAP scheduled qhs with prn daytime use - continue scopolamine patch - complete Rocephin dosing - continue Provigil - observe closely in ICU overnight - continue care as below otherwise; - continue to wean supplemental oxygen for target O2 sat's > 90% acutely - aspiration precautions - continue lung protective strategies - continue bronchodilators with pulmonary hygiene per RT - continue accuchecks with glycemic control per SSI (While critically ill target blood glucose of 140-180 mg/dL; avoid hypoglycemia) - avoid nephrotoxins, renally dose all medications - continue to avoid benzodiazepine's, reduce the possibility of delirium - follow clinically; trend fevers / WBC - prn analgesia per CPOT score - Maintenance of sleep-wake cycle, avoid delirium - continue enteral nutritional support at goal rate as tolerated - G.I. & VTE prophylaxis - PT/OT/ROM exercises - continue mobility protocols for pressure ulcer prophylaxis - Monitor hemodynamics closely - continue other care per attending / other consultants - discharge planning ongoing concurrently .... Re-evaluate in am & prn CONDITION: CRITICAL PROGNOSIS: GUARDED CODE STATUS: FULL CODE The high probability of a clinically significant, sudden or life-threatening deterioration of the [respiratory, cardiovascular, GI & neurologic] system(s) required my full and direct attention, intervention and personal management. The aggregate critical care time was [32] minutes without overlap. Time includes spent on; [x] Data Review and interpretation [x] Patient assessment and monitoring of vital signs [x] Documentation [x] Medication orders and management Subjective Date of service: 04/21/21 Principal diagnosis: Ac. resp failure; AMS; Hypoglycemia; ROJELIO; Hyperkalemia; DM II Interval history: Patient is seen today for: Acute respiratory failure; AMS; Hypoglycemia; ROJELIO; Hyperkalemia; DM II; H/O breast cancer; Elevated serum TSH, possible hypothyro idism Seen and examined at bedside; 24hour events reviewed; nursing and respiratory care staff consulted; no adverse overnight events reported to me; resting peacefully in bed; breathing mildly labored at time of my examination with mild stridorous sounds; no emesis or overt aspiration Objective Vital Signs - 12hr 04/21/21 04/21/21 04/21/21 01:00 01:30 02:00 Temperature Pulse Rate 82 74 78 Pulse Rate [ Bilateral] Pulse Rate [ From Monitor] Respiratory 20 17 13 Rate Respiratory Rate [Bilateral ] Blood Pressure 149/65 140/65 142/50 O2 Sat by Pulse 98 98 100 Oximetry 04/21/21 04/21/21 04/21/21 02:30 03:00 03:29 Temperature 97.9 F Pulse Rate 84 78 Pulse Rate [ Bilateral] Pulse Rate [ From Monitor] Respiratory 14 12 Rate Respiratory Rate [Bilateral ] Blood Pressure 123/60 O2 Sat by Pulse 98 97 Oximetry 04/21/21 04/21/21 04/21/21 03:30 03:42 04:00 Temperature Pulse Rate 100 H 73 88 Pulse Rate [ Bilateral] Pulse Rate [ 79 From Monitor] Respiratory 24 20 15 Rate Respiratory Rate [Bilateral ] Blood Pressure 167/77 195/85 O2 Sat by Pulse 100 99 100 Oximetry 04/21/21 04/21/21 04/21/21 04:30 05:00 05:30 Temperature Pulse Rate 83 82 84 Pulse Rate [ Bilateral] Pulse Rate [ From Monitor] Respiratory 18 18 19 Rate Respiratory Rate [Bilateral ] Blood Pressure 195/85 O2 Sat by Pulse 99 99 98 Oximetry 04/21/21 04/21/21 04/21/21 06:00 06:24 06:26 Temperature Pulse Rate 88 Pulse Rate [ Bilateral] Pulse Rate [ From Monitor] Respiratory 11 L Rate Respiratory Rate [Bilateral ] Blood Pressure 177/75 136/58 O2 Sat by Pulse 99 97 Oximetry 04/21/21 04/21/21 04/21/21 06:30 07:00 07:30 Temperature Pulse Rate 89 93 H 95 H Pulse Rate [ Bilateral] Pulse Rate [ From Monitor] Respiratory 18 14 25 H Rate Respiratory Rate [Bilateral ] Blood Pressure 136/58 143/80 143/91 O2 Sat by Pulse 99 98 94 Oximetry 04/21/21 04/21/21 04/21/21 07:38 08:00 08:30 Temperature Pulse Rate 80 97 H Pulse Rate [ Bilateral] Pulse Rate [ 92 H From Monitor] Respiratory 24 22 Rate Respiratory Rate [Bilateral ] Blood Pressure 153/78 153/78 O2 Sat by Pulse 97 98 100 Oximetry 04/21/21 04/21/21 04/21/21 09:00 10:03 10:32 Temperature Pulse Rate 101 H 78 82 Pulse Rate [ Bilateral] Pulse Rate [ From Monitor] Respiratory 26 H Rate Respiratory Rate [Bilateral ] Blood Pressure 152/96 171/93 170/92 O2 Sat by Pulse 97 Oximetry 04/21/21 12:21 Temperature Pulse Rate Pulse Rate [ 91 H Bilateral] Pulse Rate [ From Monitor] Respiratory Rate Respiratory 20 Rate [Bilateral ] Blood Pressure O2 Sat by Pulse Oximetry Constitutional: appears uncomfortable, other (elderly obese female with mildly increased respiratory effort at rest on MVS) Eyes: non-icteric ENT: oropharynx moist, oropharyngeal exudate pre (clear, moderate amount), other (mild stridorous sounds) Neck: supple, no lymphadenopathy, no JVD, other (large circumference) Effort: mildly labored Ascultation: Bilateral: diminished breath sounds, rhonchi (scant), other (mild stridorous sounds) Percussion: Bilateral: not dull Cardiovascular: regular rate and rhythm Gastrointestinal: normoactive bowel sounds, soft, non-tender, non-distended (protuberant), other (NGT to LIS) Integumentary: normal Extremities: no cyanosis, no edema, pulses normal, no ischemia or petechiae Neurologic: non-focal exam (grossly with intermittent spontaneous movement to extremities but ? mild posturing (decerebrate)), pupils equal and round, CN II- XII normal Psychiatric: anxious CBC and BMP: 04/21/21 05:51 04/21/21 05:51 ABG, PT/INR, D-dimer: ABG ABG pH 7.526 (7.320-7.450) H 04/20/21 02:56 POC ABG pCO2 35.7 mmHg (32.0-48.0) 04/20/21 02:56 POC ABG pO2 105.1 mmHg (83-108) 04/20/21 02:56 POC ABG HCO3 28.9 04/20/21 02:56 ABG O2 Saturation 98.2 (0-100) 04/20/21 02:56 PT/INR, D-dimer PT 12.2 Sec. (12.2-14.9) 04/15/21 17:20 INR 0.91 (0.87-1.13) 04/15/21 17:20 Abnormal lab findings: Abnormal Labs 04/15/21 04/15/21 04/15/21 17:20 17:20 17:20 WBC 11.2 H RBC Hct 43.0 H MCV RDW 15.3 H Plt Count Lymph % (Auto) 12.8 L Seg Neutrophils % 82.4 H Seg Neuts % (Manual) Lymphocytes % (Manual) Monocytes % (Manual) Seg Neutrophils # 9.3 H Seg Neutrophils # Man Lymphocytes # (Manual) Monocytes # (Manual) ABG pH POC ABG pCO2 POC ABG pO2 ABG Hemoglobin ABG Oxyhemoglobin ABG Sodium ABG Potassium ABG Chloride ABG Glucose Carboxyhemoglobin Sodium 129 L Potassium 7.1 H* Chloride 91.9 L BUN 35 H Creatinine 2.8 H Glucose POC Glucose Calcium Phosphorus Magnesium AST 69 H Total Creatine Kinase 1000 H CK-MB (CK-2) Troponin T Albumin HDL Cholesterol TSH Free T3 Index Arterial Blood Glucose Arterial Blood Ionized Calcium Urine pH Urine WBC (Auto) Urine Creatinine Acetaminophen 04/15/21 04/15/21 04/15/21 17:20 17:20 20:49 WBC RBC Hct MCV RDW Plt Count Lymph % (Auto) Seg Neutrophils % Seg Neuts % (Manual) Lymphocytes % (Manual) Monocytes % (Manual) Seg Neutrophils # Seg Neutrophils # Man Lymphocytes # (Manual) Monocytes # (Manual) ABG pH 7.557 H POC ABG pCO2 30.0 L POC ABG pO2 493.3 H ABG Hemoglobin ABG Oxyhemoglobin 99.0 H ABG Sodium 131.5 L ABG Potassium 4.7 H ABG Chloride 94.0 L ABG Glucose 218 H Carboxyhemoglobin Sodium Potassium Chloride BUN Creatinine Glucose POC Glucose Calcium Phosphorus Magnesium AST Total Creatine Kinase CK-MB (CK-2) Troponin T Albumin HDL Cholesterol TSH 14.190 H Free T3 Index Arterial Blood Glucose 218 H Arterial Blood Ionized Calcium 5.4 H Urine pH Urine WBC (Auto) Urine Creatinine Acetaminophen 5.0 L 04/15/21 04/15/21 04/16/21 21:23 23:15 00:09 WBC RBC Hct MCV RDW Plt Count Lymph % (Auto) Seg Neutrophils % Seg Neuts % (Manual) Lymphocytes % (Manual) Monocytes % (Manual) Seg Neutrophils # Seg Neutrophils # Man Lymphocytes # (Manual) Monocytes # (Manual) ABG pH POC ABG pCO2 POC ABG pO2 ABG Hemoglobin ABG Oxyhemoglobin ABG Sodium ABG Potassium ABG Chloride ABG Glucose Carboxyhemoglobin Sodium Potassium Chloride BUN Creatinine Glucose POC Glucose 173 H 207 H Calcium Phosphorus Magnesium AST Total Creatine Kinase CK-MB (CK-2) Troponin T Albumin HDL Cholesterol TSH Free T3 Index Arterial Blood Glucose Arterial Blood Ionized Calcium Urine pH 9.0 H Urine WBC (Auto) Urine Creatinine Acetaminophen 04/16/21 04/16/21 04/16/21 00:12 00:19 03:43 WBC RBC Hct MCV RDW Plt Count Lymph % (Auto) Seg Neutrophils % Seg Neuts % (Manual) Lymphocytes % (Manual) Monocytes % (Manual) Seg Neutrophils # Seg Neutrophils # Man Lymphocytes # (Manual) Monocytes # (Manual) ABG pH 7.461 H POC ABG pCO2 POC ABG pO2 ABG Hemoglobin ABG Oxyhemoglobin ABG Sodium 126.8 L ABG Potassium 5.4 H ABG Chloride 90.0 L ABG Glucose 325 H Carboxyhemoglobin Sodium Potassium 6.7 H* Chloride BUN Creatinine Glucose POC Glucose Calcium Phosphorus Magnesium AST Total Creatine Kinase CK-MB (CK-2) Troponin T Albumin HDL Cholesterol TSH Free T3 Index Arterial Blood Glucose 325 H Arterial Blood Ionized Calcium Urine pH Urine WBC (Auto) Urine Creatinine 24.4 H Acetaminophen 04/16/21 04/16/21 04/16/21 03:55 05:02 05:02 WBC 21.2 H RBC Hct 43.4 H MCV 98 H RDW Plt Count Lymph % (Auto) Seg Neutrophils % Seg Neuts % (Manual) 84.0 H Lymphocytes % (Manual) 2.0 L Monocytes % (Manual) 10.0 H Seg Neutrophils # Seg Neutrophils # Man 17.8 H Lymphocytes # (Manual) 0.4 L Monocytes # (Manual) 2.1 H ABG pH POC ABG pCO2 POC ABG pO2 ABG Hemoglobin ABG Oxyhemoglobin ABG Sodium ABG Potassium ABG Chloride ABG Glucose Carboxyhemoglobin Sodium 131 L Potassium 5.9 H Chloride 88.7 L BUN 34 H Creatinine 2.9 H Glucose 249 H POC Glucose 391 H Calcium 10.4 H Phosphorus Magnesium AST 65 H Total Creatine Kinase CK-MB (CK-2) Troponin T Albumin 3.8 L HDL Cholesterol TSH Free T3 Index Arterial Blood Glucose Arterial Blood Ionized Calcium Urine pH Urine WBC (Auto) Urine Creatinine Acetaminophen 04/16/21 04/16/21 04/16/21 11:34 16:09 18:15 WBC RBC Hct MCV RDW Plt Count Lymph % (Auto) Seg Neutrophils % Seg Neuts % (Manual) Lymphocytes % (Manual) Monocytes % (Manual) Seg Neutrophils # Seg Neutrophils # Man Lymphocytes # (Manual) Monocytes # (Manual) ABG pH POC ABG pCO2 POC ABG pO2 ABG Hemoglobin ABG Oxyhemoglobin ABG Sodium ABG Potassium ABG Chloride ABG Glucose Carboxyhemoglobin Sodium Potassium Chloride BUN Creatinine Glucose POC Glucose 382 H 300 H 287 H Calcium Phosphorus Magnesium AST Total Creatine Kinase CK-MB (CK-2) Troponin T Albumin HDL Cholesterol TSH Free T3 Index Arterial Blood Glucose Arterial Blood Ionized Calcium Urine pH Urine WBC (Auto) Urine Creatinine Acetaminophen 04/16/21 04/16/21 04/16/21 19:01 19:01 19:01 WBC RBC Hct MCV RDW Plt Count Lymph % (Auto) Seg Neutrophils % Seg Neuts % (Manual) Lymphocytes % (Manual) Monocytes % (Manual) Seg Neutrophils # Seg Neutrophils # Man Lymphocytes # (Manual) Monocytes # (Manual) ABG pH POC ABG pCO2 POC ABG pO2 ABG Hemoglobin ABG Oxyhemoglobin ABG Sodium ABG Potassium ABG Chloride ABG Glucose Carboxyhemoglobin Sodium 125 L Potassium 5.5 H 5.6 H Chloride 84.5 L BUN 37 H Creatinine 3.5 H Glucose 236 H POC Glucose Calcium Phosphorus Magnesium AST Total Creatine Kinase CK-MB (CK-2) Troponin T Albumin HDL Cholesterol TSH Free T3 Index 1.1 L Arterial Blood Glucose Arterial Blood Ionized Calcium Urine pH Urine WBC (Auto) Urine Creatinine Acetaminophen 04/16/21 04/17/21 04/17/21 23:48 03:09 05:04 WBC RBC Hct MCV RDW Plt Count Lymph % (Auto) Seg Neutrophils % Seg Neuts % (Manual) Lymphocytes % (Manual) Monocytes % (Manual) Seg Neutrophils # Seg Neutrophils # Man Lymphocytes # (Manual) Monocytes # (Manual) ABG pH 7.518 H POC ABG pCO2 POC ABG pO2 ABG Hemoglobin ABG Oxyhemoglobin ABG Sodium 126.4 L ABG Potassium ABG Chloride 89.0 L ABG Glucose 200 H Carboxyhemoglobin Sodium 129 L Potassium Chloride 86.1 L BUN 39 H Creatinine 3.5 H Glucose 202 H POC Glucose 243 H Calcium Phosphorus Magnesium AST Total Creatine Kinase 750 H CK-MB (CK-2) Troponin T 0.119 H* D Albumin HDL Cholesterol 61 H TSH Free T3 Index Arterial Blood Glucose 200 H Arterial Blood Ionized Calcium 4.4 L Urine pH Urine WBC (Auto) Urine Creatinine Acetaminophen 04/17/21 04/17/21 04/17/21 06:14 11:55 15:35 WBC RBC Hct MCV RDW Plt Count Lymph % (Auto) Seg Neutrophils % Seg Neuts % (Manual) Lymphocytes % (Manual) Monocytes % (Manual) Seg Neutrophils # Seg Neutrophils # Man Lymphocytes # (Manual) Monocytes # (Manual) ABG pH POC ABG pCO2 POC ABG pO2 ABG Hemoglobin ABG Oxyhemoglobin ABG Sodium ABG Potassium ABG Chloride ABG Glucose Carboxyhemoglobin Sodium Potassium Chloride BUN Creatinine Glucose POC Glucose 208 H 276 H Calcium Phosphorus Magnesium AST Total Creatine Kinase 615 H CK-MB (CK-2) 9.1 H Troponin T Albumin HDL Cholesterol TSH Free T3 Index Arterial Blood Glucose Arterial Blood Ionized Calcium Urine pH Urine WBC (Auto) Urine Creatinine Acetaminophen 04/17/21 04/17/21 04/18/21 15:35 17:07 00:01 WBC 17.1 H RBC Hct MCV RDW Plt Count Lymph % (Auto) Seg Neutrophils % Seg Neuts % (Manual) Lymphocytes % (Manual) Monocytes % (Manual) Seg Neutrophils # Seg Neutrophils # Man Lymphocytes # (Manual) Monocytes # (Manual) ABG pH POC ABG pCO2 POC ABG pO2 ABG Hemoglobin ABG Oxyhemoglobin ABG Sodium ABG Potassium ABG Chloride ABG Glucose Carboxyhemoglobin Sodium Potassium Chloride BUN Creatinine Glucose POC Glucose 148 H 192 H Calcium Phosphorus Magnesium AST Total Creatine Kinase CK-MB (CK-2) Troponin T Albumin HDL Cholesterol TSH Free T3 Index Arterial Blood Glucose Arterial Blood Ionized Calcium Urine pH Urine WBC (Auto) Urine Creatinine Acetaminophen 04/18/21 04/18/21 04/18/21 03:00 05:24 05:34 WBC 15.3 H RBC 3.34 L Hct MCV RDW 15.3 H Plt Count Lymph % (Auto) Seg Neutrophils % Seg Neuts % (Manual) Lymphocytes % (Manual) Monocytes % (Manual) Seg Neutrophils # Seg Neutrophils # Man Lymphocytes # (Manual) Monocytes # (Manual) ABG pH 7.497 H POC ABG pCO2 POC ABG pO2 77.7 L ABG Hemoglobin 10.4 L ABG Oxyhemoglobin ABG Sodium 129.7 L ABG Potassium 2.8 L ABG Chloride 92.0 L ABG Glucose 134 H Carboxyhemoglobin 0.3 L Sodium Potassium Chloride BUN Creatinine Glucose POC Glucose 162 H Calcium Phosphorus Magnesium AST Total Creatine Kinase CK-MB (CK-2) Troponin T Albumin HDL Cholesterol TSH Free T3 Index Arterial Blood Glucose 134 H Arterial Blood Ionized Calcium 4.3 L Urine pH Urine WBC (Auto) Urine Creatinine Acetaminophen 04/18/21 04/18/21 04/18/21 05:34 05:43 09:11 WBC RBC Hct MCV RDW Plt Count Lymph % (Auto) Seg Neutrophils % Seg Neuts % (Manual) Lymphocytes % (Manual) Monocytes % (Manual) Seg Neutrophils # Seg Neutrophils # Man Lymphocytes # (Manual) Monocytes # (Manual) ABG pH POC ABG pCO2 POC ABG pO2 ABG Hemoglobin ABG Oxyhemoglobin ABG Sodium ABG Potassium ABG Chloride ABG Glucose Carboxyhemoglobin Sodium 134 L Potassium 3.0 L D Chloride 93.5 L BUN 42 H Creatinine 3.1 H Glucose 152 H POC Glucose Calcium Phosphorus Magnesium 1.40 L AST Total Creatine Kinase 427 H CK-MB (CK-2) Troponin T 0.081 H D Albumin HDL Cholesterol TSH Free T3 Index Arterial Blood Glucose Arterial Blood Ionized Calcium Urine pH Urine WBC (Auto) 34.0 H Urine Creatinine Acetaminophen 04/18/21 04/18/21 04/18/21 11:34 17:24 23:18 WBC RBC Hct MCV RDW Plt Count Lymph % (Auto) Seg Neutrophils % Seg Neuts % (Manual) Lymphocytes % (Manual) Monocytes % (Manual) Seg Neutrophils # Seg Neutrophils # Man Lymphocytes # (Manual) Monocytes # (Manual) ABG pH POC ABG pCO2 POC ABG pO2 ABG Hemoglobin ABG Oxyhemoglobin ABG Sodium ABG Potassium ABG Chloride ABG Glucose Carboxyhemoglobin Sodium Potassium Chloride BUN Creatinine Glucose POC Glucose 170 H 151 H 182 H Calcium Phosphorus Magnesium AST Total Creatine Kinase CK-MB (CK-2) Troponin T Albumin HDL Cholesterol TSH Free T3 Index Arterial Blood Glucose Arterial Blood Ionized Calcium Urine pH Urine WBC (Auto) Urine Creatinine Acetaminophen 04/19/21 04/19/21 04/19/21 04:09 05:19 07:30 WBC 14.8 H RBC 3.20 L Hct MCV 98 H RDW Plt Count 137 L Lymph % (Auto) Seg Neutrophils % Seg Neuts % (Manual) Lymphocytes % (Manual) Monocytes % (Manual) Seg Neutrophils # Seg Neutrophils # Man Lymphocytes # (Manual) Monocytes # (Manual) ABG pH 7.476 H POC ABG pCO2 POC ABG pO2 79.4 L ABG Hemoglobin 10.7 L ABG Oxyhemoglobin ABG Sodium 131.2 L ABG Potassium 2.8 L ABG Chloride 94.0 L ABG Glucose 209 H Carboxyhemoglobin 0.3 L Sodium Potassium Chloride BUN Creatinine Glucose POC Glucose 204 H Calcium Phosphorus Magnesium AST Total Creatine Kinase CK-MB (CK-2) Troponin T Albumin HDL Cholesterol TSH Free T3 Index Arterial Blood Glucose 209 H Arterial Blood Ionized Calcium Urine pH Urine WBC (Auto) Urine Creatinine Acetaminophen 04/19/21 04/19/21 04/19/21 07:30 10:35 11:48 WBC RBC Hct MCV RDW Plt Count Lymph % (Auto) Seg Neutrophils % Seg Neuts % (Manual) Lymphocytes % (Manual) Monocytes % (Manual) Seg Neutrophils # Seg Neutrophils # Man Lymphocytes # (Manual) Monocytes # (Manual) ABG pH 7.464 H POC ABG pCO2 POC ABG pO2 81.8 L ABG Hemoglobin 10.8 L ABG Oxyhemoglobin ABG Sodium 129.6 L ABG Potassium ABG Chloride 95.0 L ABG Glucose 238 H Carboxyhemoglobin Sodium 133 L Potassium 2.8 L* Chloride 94.4 L BUN 43 H Creatinine 2.7 H Glucose 255 H POC Glucose 208 H Calcium 8.0 L Phosphorus Magnesium AST Total Creatine Kinase CK-MB (CK-2) Troponin T 0.060 H D Albumin HDL Cholesterol TSH Free T3 Index Arterial Blood Glucose 238 H Arterial Blood Ionized Calcium Urine pH Urine WBC (Auto) Urine Creatinine Acetaminophen 04/19/21 04/19/21 04/20/21 20:40 23:04 02:56 WBC RBC Hct MCV RDW Plt Count Lymph % (Auto) Seg Neutrophils % Seg Neuts % (Manual) Lymphocytes % (Manual) Monocytes % (Manual) Seg Neutrophils # Seg Neutrophils # Man Lymphocytes # (Manual) Monocytes # (Manual) ABG pH 7.526 H POC ABG pCO2 POC ABG pO2 ABG Hemoglobin 10.5 L ABG Oxyhemoglobin ABG Sodium 133.5 L ABG Potassium ABG Chloride ABG Glucose 157 H Carboxyhemoglobin 0.3 L Sodium Potassium 3.4 L D Chloride BUN Creatinine Glucose POC Glucose 173 H Calcium Phosphorus Magnesium AST Total Creatine Kinase CK-MB (CK-2) Troponin T Albumin HDL Cholesterol TSH Free T3 Index Arterial Blood Glucose 157 H Arterial Blood Ionized Calcium Urine pH Urine WBC (Auto) Urine Creatinine Acetaminophen 04/20/21 04/20/21 04/20/21 03:32 03:32 03:46 WBC 13.2 H RBC 3.18 L Hct MCV RDW Plt Count Lymph % (Auto) Seg Neutrophils % Seg Neuts % (Manual) Lymphocytes % (Manual) Monocytes % (Manual) Seg Neutrophils # Seg Neutrophils # Man Lymphocytes # (Manual) Monocytes # (Manual) ABG pH POC ABG pCO2 POC ABG pO2 ABG Hemoglobin ABG Oxyhemoglobin ABG Sodium ABG Potassium ABG Chloride ABG Glucose Carboxyhemoglobin Sodium 135 L Potassium Chloride 96.7 L BUN 40 H Creatinine 2.3 H Glucose 142 H POC Glucose Calcium Phosphorus 2.10 L Magnesium AST Total Creatine Kinase CK-MB (CK-2) Troponin T 0.065 H Albumin HDL Cholesterol TSH Free T3 Index Arterial Blood Glucose Arterial Blood Ionized Calcium Urine pH Urine WBC (Auto) Urine Creatinine Acetaminophen 04/20/21 04/20/21 04/20/21 05:42 11:50 17:09 WBC RBC Hct MCV RDW Plt Count Lymph % (Auto) Seg Neutrophils % Seg Neuts % (Manual) Lymphocytes % (Manual) Monocytes % (Manual) Seg Neutrophils # Seg Neutrophils # Man Lymphocytes # (Manual) Monocytes # (Manual) ABG pH POC ABG pCO2 POC ABG pO2 ABG Hemoglobin ABG Oxyhemoglobin ABG Sodium ABG Potassium ABG Chloride ABG Glucose Carboxyhemoglobin Sodium Potassium Chloride BUN Creatinine Glucose POC Glucose 160 H 194 H 153 H Calcium Phosphorus Magnesium AST Total Creatine Kinase CK-MB (CK-2) Troponin T Albumin HDL Cholesterol TSH Free T3 Index Arterial Blood Glucose Arterial Blood Ionized Calcium Urine pH Urine WBC (Auto) Urine Creatinine Acetaminophen 04/20/21 04/21/21 04/21/21 23:18 05:26 05:51 WBC RBC 3.20 L Hct MCV 99 H RDW 15.3 H Plt Count Lymph % (Auto) Seg Neutrophils % Seg Neuts % (Manual) Lymphocytes % (Manual) Monocytes % (Manual) Seg Neutrophils # Seg Neutrophils # Man Lymphocytes # (Manual) Monocytes # (Manual) ABG pH POC ABG pCO2 POC ABG pO2 ABG Hemoglobin ABG Oxyhemoglobin ABG Sodium ABG Potassium ABG Chloride ABG Glucose Carboxyhemoglobin Sodium Potassium Chloride BUN Creatinine Glucose POC Glucose 162 H 164 H Calcium Phosphorus Magnesium AST Total Creatine Kinase CK-MB (CK-2) Troponin T Albumin HDL Cholesterol TSH Free T3 Index Arterial Blood Glucose Arterial Blood Ionized Calcium Urine pH Urine WBC (Auto) Urine Creatinine Acetaminophen 04/21/21 05:51 WBC RBC Hct MCV RDW Plt Count Lymph % (Auto) Seg Neutrophils % Seg Neuts % (Manual) Lymphocytes % (Manual) Monocytes % (Manual) Seg Neutrophils # Seg Neutrophils # Man Lymphocytes # (Manual) Monocytes # (Manual) ABG pH POC ABG pCO2 POC ABG pO2 ABG Hemoglobin ABG Oxyhemoglobin ABG Sodium ABG Potassium ABG Chloride ABG Glucose Carboxyhemoglobin Sodium Potassium Chloride 96.6 L BUN 42 H Creatinine 2.1 H Glucose 171 H POC Glucose Calcium Phosphorus Magnesium AST Total Creatine Kinase CK-MB (CK-2) Troponin T Albumin HDL Cholesterol TSH Free T3 Index Arterial Blood Glucose Arterial Blood Ionized Calcium Urine pH Urine WBC (Auto) Urine Creatinine Acetaminophen Allied health notes reviewed: nursing
[2021-04-21] MEDS ORDERED: EPINEPHrine RACEMIC 2.25% 0.5ML NEBU IH PRN (12:56)
[2021-04-21] MEDS: methylPREDNISolone Sod Succinate 40 MG/1 ML INJ IV SCH ×2 (13:10→18:42)
[2021-04-21] MEDS ORDERED: hydrALAZINE 25 MG TAB PO SCH (13:32)
--- NOTE | 2021-04-21 13:47 | Progress Note ---
Assessment and Plan Assessment and plan: This is a 80-year-old female with HTN, DM, AK, breast CA s/p double mastectomy, TIA who presented with hypoglycemia, AMS who was admitted with SIRS, symptomatic bradycardia, acute metabolic encephalopathy, acute hypoxic respiratory failure, elevated TSH, hyperglycemia, hyponatremia, hypokalemia, ROJELIO and rhabdomyolysis Acute metabolic encephalopathy Acute hypoxic respiratory failure (extubated 04/20) First-degree heart block Resolved ileus versus mechanical obstruction Acute kidney injury UTI, gram negative rods Hypochloremia Hypophosphatemia Possible seizure activity Elevated TSH Mild rhabdomyolysis Hypertension Diabetes mellitus CAD Obesity -[facility], cardiology, nephrology, neurology, nutrition consulted, appreciate recommendations -04/15 CT head shows age-related atrophic change, chronic small vessel ischemic change, no CT evidence of acute large vessel territory ischemic injury, hemorrhage or mass -04/15 echocardiogram shows left ventricular systolic function borderline, LVEF 45 to 50%, mild concentric LVH, paradoxical septal motion consistent with left bundle branch block with no clot identified in the left ventricle, calcified aortic valve without regurgitation or stenosis, trace MR, trace TR, no WA, RVSP is 24 mmHg -04/17 KUB shows gas-filled and dilated loops of small bowel noted over the upper abdomen largest measuring 5 cm concerning for ileus versus mechanical obstruction -04/18 KUB shows interval resolution of previously seen small bowel dilation -04/18 EEG pending -04/19 MRI brain shows no restricted diffusion, no hemorrhage,, no radiation, findings consistent with chronic microvascular disease, small bilateral mastoid effusions, mucosal thickening throughout the paranasal sinuses seen within the maxillary sinuses -S/p antibiotic therapy x1, currently on abd for UTI -S/p D10 and D5W gtt, on TF -Accu-Cheks every 6, SSI, long acting insulin -S/p IV calcium gluconate, regular insulin, D50 -S/p transcutaneous pacing, intermittent demand pacer in place -Renal ultrasound pending -Avoid ACEi/ARB in setting of ROJELIO -Avoid AV arron blocking agents -Avoid nephrotoxic agents and renally dose medications -BB, add home antihtn regimen as needed -TSH 14.1, T4 4.1, T3 pending-started on levothyroxine -Blood pressure monitoring per protocol -IV hydralazine as needed -Provegil -s/p racemic epinephrine x2 -Steroids -BiPAP as needed -Trend CBC, BMP, CK DVT/GI prophylaxis: Heparin subcu, PPI, SCDs to bilateral lower extremities while in bed Disposition: ICU The high probability of a clinically significant, sudden or life threatening deterioration of the [multi] system(s) required my full and direct attention, intervention and personal management. The aggregate critical care time was [35] minutes. This time is in addition to time spent performing reported procedures but includes the following: [x] Data Review and interpretation [x] Patient assessment and monitoring of vital signs [x] Documentation [x] Medication orders and management History Interval history: This is a 80-year-old female with hypertension, diabetes mellitus, AK, breast cancer s/p double mastectomy, and a TIA who presented with hypoglycemia and alt ered mental status on 04/15 via EMS. Per EMS patient was unresponsive on their arrival and her blood glucose was 38 and she received 1 amp of dextrose patient continued to be unresponsive and only moaned with her eyes deviating to the left. Work-up in the emergency department revealed SIRS, symptomatic bradycardia, acute metabolic encephalopathy, acute hypoxic respiratory failure, elevated TSH, hyperglycemia, hyponatremia, hyperkalemia, acute kidney injury with ATN, and rhabdomyolysis 04/16: Neurology consulted, COVID-19 PCR negative, D10 drip decreased and eventually discontinued by [facility] and started on D5W for 1 L. Hydralazine as needed. Patient had hyper kalemia today and was treated with D50, insulin and Kayexalate. This time examination patient is on assist control tidal volume 450 , rate of 16, PEEP of 6 and 25% FiO2. 04/17: Patient started on low-dose beta-angel per cardiology, CPAP trial again per CCM, BUN/creatinine holding steady and hypochloremia/hyponatremia slightly improved and hypokalemia has resolved. This morning a KUB was obtained which was concerning for ileus versus mechanical obstruction and surgery was consulted. Patient was made n.p.o. and NG tube placed to wall suction. Patient was given suppository. Per RN patient did not have a BM even though she was given Kayexalate yesterday. Will obtain a KUB in the a.m. Neurology was consulted yesterday and will await further recommendations. Nephew updated at bedside today, Carlos Romero. 04/18: Neurology has ordered EEG/MRI B, CCM continues to wean MV. Persistent low grade temperature so we will obtain BCx2/UA. Patient has improving leukocytosis, hyponatremia, renal function studies and hypochloremia. She has hypokalemia today which is being repleted. Surgery has signed off today and has okayed resumption of TF. [facility] will trial CPAP for longer today and plans to attempt extubation in AM. Family has requested transfer to [place] and Dr. Gordon will attempt to contact transfer center. I updated her nephew, Carlos Romero over the phone today abouyt current events and update on transfer ([place] will conduct a utilization review) 04/19: This morning patient is on CPAP trial at the time of examination, noted to be hypertensive and metoprolol increased to home dose, started on synthroid by [facility], lantus started re hyperglycemia, MRI completed with no acute findings. Severe hypokalemia (repleted and Mg pending). [facility] will contact CPAP trial again today with possible trial extubation tomorrow. 04/20: Patient's leukocytosis and kidney function tests continue to improve. Patient is hypertensive overnight we will restart home hydralazine. [facility] plans to extubate patient today. Family is attempting to transfer to another facility. EEG pending, RT will atmept to contact bench lay out technician. Urine culture grew gram negative rods. Increase in lantus 04/21: Increase in Lantus, repleted phos. Patient has started this afternoon and was given racemic epinephrine and started on steroids. Patient will have BiPAP as needed. We will recheck BMP in the a.m. renal function studies continues to decrease. Patient has been hypertensive on evaluation regimen has been changed. Hospitalist Physical - Constitutional Vitals: Temp Pulse Resp BP Pulse Ox 98.3 F 91 H 20 170/92 97 04/21/21 12:00 04/21/21 12:21 04/21/21 12:21 04/21/21 10:32 04/21/21 09:00 General appearance: Present: no acute distress, other (sedated) - EENT Eyes: Present: PERRL, EOM intact ENT: poor dentition - Neck Neck: Present: normal ROM - Respiratory Respiratory effort: normal Respiratory: bilateral: CTA - Cardiovascular Rhythm: regular Heart Sounds: Present: S1 & S2. Absent: systolic murmur, diastolic murmur - Extremities Extremities: no ischemia, pulses intact, pulses symmetrical, normal temperature, normal color Extremity abnormal: edema Peripheral Pulses: within normal limits - Abdominal General gastrointestinal: soft, non-tender, non-distended - Integumentary Integumentary: Present: warm, dry - Psychiatric Psychiatric: cooperative - Neurologic Neurologic: moves all extremities - Allied Health Allied health notes reviewed: nursing, RT, social work HEART Score - HEART Score Troponin: Troponin T 0.065 ng/mL (0.00-0.029) H 04/20/21 03:32 Results - Labs CBC & Chem 7: 04/21/21 05:51 04/21/21 05:51 Labs: Laboratory Last Values WBC 10.8 K/mm3 (4.5-11.0) 04/21/21 05:51 RBC 3.20 M/mm3 (3.65-5.03) L 04/21/21 05:51 Hgb 10.3 gm/dl (10.1-14.3) 04/21/21 05:51 Hct 31.5 % (30.3-42.9) 04/21/21 05:51 MCV 99 fl (79-97) H 04/21/21 05:51 MCH 32 pg (28-32) 04/21/21 05:51 MCHC 33 % (30-34) 04/21/21 05:51 RDW 15.3 % (13.2-15.2) H 04/21/21 05:51 Plt Count 178 K/mm3 (140-440) 04/21/21 05:51 Lymph % (Auto) 12.8 % (13.4-35.0) L 04/15/21 17:20 [place] % (Auto) 4.1 % (0.0-7.3) 04/15/21 17:20 Eos % (Auto) 0.3 % (0.0-4.3) 04/15/21 17:20 Baso % (Auto) 0.4 % (0.0-1.8) 04/15/21 17:20 Lymph # (Auto) 1.4 K/mm3 (1.2-5.4) 04/15/21 17:20 [place] # (Auto) 0.5 K/mm3 (0.0-0.8) 04/15/21 17:20 Eos # (Auto) 0.0 K/mm3 (0.0-0.4) 04/15/21 17:20 Baso # (Auto) 0.0 K/mm3 (0.0-0.1) 04/15/21 17:20 Add Manual Diff Complete 04/16/21 05:02 Total Counted 100 04/16/21 05:02 Seg Neutrophils % 82.4 % (40.0-70.0) H 04/15/21 17:20 Seg Neuts % (Manual) 84.0 % (40.0-70.0) H 04/16/21 05:02 Band Neutrophils % 3.0 % 04/16/21 05:02 Lymphocytes % (Manual) 2.0 % (13.4-35.0) L 04/16/21 05:02 Monocytes % (Manual) 10.0 % (0.0-7.3) H 04/16/21 05:02 Metamyelocytes % 1.0 % 04/16/21 05:02 Nucleated RBC % Not Reportable 04/16/21 05:02 Seg Neutrophils # 9.3 K/mm3 (1.8-7.7) H 04/15/21 17:20 Seg Neutrophils # Man 17.8 K/mm3 (1.8-7.7) H 04/16/21 05:02 Band Neutrophils # 0.6 K/mm3 04/16/21 05:02 Lymphocytes # (Manual) 0.4 K/mm3 (1.2-5.4) L 04/16/21 05:02 Abs React Lymphs (Man) 0.0 K/mm3 04/16/21 05:02 Monocytes # (Manual) 2.1 K/mm3 (0.0-0.8) H 04/16/21 05:02 Eosinophils # (Manual) 0.0 K/mm3 (0.0-0.4) 04/16/21 05:02 Basophils # (Manual) 0.0 K/mm3 (0.0-0.1) 04/16/21 05:02 Metamyelocytes # 0.2 K/mm3 04/16/21 05:02 Myelocytes # 0.0 K/mm3 04/16/21 05:02 Promyelocytes # 0.0 K/mm3 04/16/21 05:02 Blast Cells # 0.0 K/mm3 04/16/21 05:02 WBC Morphology Not Reportable 04/16/21 05:02 Hypersegmented Neuts Not Reportable 04/16/21 05:02 Hyposegmented Neuts Not Reportable 04/16/21 05:02 Hypogranular Neuts Not Reportable 04/16/21 05:02 Smudge Cells Not Reportable 04/16/21 05:02 Toxic Granulation Not Reportable 04/16/21 05:02 Toxic Vacuolation Not Reportable 04/16/21 05:02 Dohle Bodies Not Reportable 04/16/21 05:02 Pelger-Huet Anomaly Not Reportable 04/16/21 05:02 Peterson Rods Not Reportable 04/16/21 05:02 Platelet Estimate Consistent w auto 04/16/21 05:02 Clumped Platelets Not Reportable 04/16/21 05:02 Plt Clumps, EDTA Not Reportable 04/16/21 05:02 Large Platelets Not Reportable 04/16/21 05:02 Giant Platelets Not Reportable 04/16/21 05:02 Platelet Satelliting Not Reportable 04/16/21 05:02 Plt Morphology Comment Not Reportable 04/16/21 05:02 RBC Morphology Not Reportable 04/16/21 05:02 Dimorphic RBCs Not Reportable 04/16/21 05:02 Polychromasia Not Reportable 04/16/21 05:02 Hypochromasia Not Reportable 04/16/21 05:02 Poikilocytosis Not Reportable 04/16/21 05:02 Anisocytosis Few 04/16/21 05:02 Microcytosis Not Reportable 04/16/21 05:02 Macrocytosis Not Reportable 04/16/21 05:02 Spherocytes Not Reportable 04/16/21 05:02 Pappenheimer Bodies Not Reportable 04/16/21 05:02 Sickle Cells Not Reportable 04/16/21 05:02 Target Cells Not Reportable 04/16/21 05:02 Tear Drop Cells Not Reportable 04/16/21 05:02 Ovalocytes Not Reportable 04/16/21 05:02 Helmet Cells Not Reportable 04/16/21 05:02 [place] Bodies Not Reportable 04/16/21 05:02 [place] Rings Not Reportable 04/16/21 05:02 Theo Cells Not Reportable 04/16/21 05:02 Bite Cells Not Reportable 04/16/21 05:02 Crenated Cell Not Reportable 04/16/21 05:02 Elliptocytes Not Reportable 04/16/21 05:02 Acanthocytes (Spur) Not Reportable 04/16/21 05:02 Rouleaux Not Reportable 04/16/21 05:02 Hemoglobin C Crystals Not Reportable 04/16/21 05:02 Schistocytes Not Reportable 04/16/21 05:02 Malaria parasites Not Reportable 04/16/21 05:02 James Bodies Not Reportable 04/16/21 05:02 Hem Pathologist Commnt No 04/16/21 05:02 PT 12.2 Sec. (12.2-14.9) 04/15/21 17:20 INR 0.91 (0.87-1.13) 04/15/21 17:20 APTT 31.8 Sec. (24.2-36.6) 04/15/21 17:20 ABG pH 7.526 (7.320-7.450) H 04/20/21 02:56 POC ABG pCO2 35.7 mmHg (32.0-48.0) 04/20/21 02:56 POC ABG pO2 105.1 mmHg (83-108) 04/20/21 02:56 POC ABG HCO3 28.9 04/20/21 02:56 ABG O2 Saturation 98.2 (0-100) 04/20/21 02:56 POC ABG Base Excess 5.9 04/20/21 02:56 ABG Hemoglobin 10.5 (12.0-17.5) L 04/20/21 02:56 ABG Oxyhemoglobin 97.6 (94-98) 04/20/21 02:56 ABG Methemoglobin 0.3 (0.0-1.5) 04/20/21 02:56 ABG Sodium 133.5 mmol/L (136.0-145.0) L 04/20/21 02:56 ABG Potassium 3.7 mmol/L (3.40-4.50) 04/20/21 02:56 ABG Chloride 99.0 mmol/L (98-107) 04/20/21 02:56 ABG Glucose 157 mg/dL (65-95) H 04/20/21 02:56 Carboxyhemoglobin 0.3 (0.5-1.5) L 04/20/21 02:56 FiO2 % 25.0 04/20/21 02:56 Sodium 137 mmol/L (137-145) 04/21/21 05:51 Potassium 4.5 mmol/L (3.6-5.0) 04/21/21 05:51 Chloride 96.6 mmol/L (98-107) L 04/21/21 05:51 Carbon Dioxide 26 mmol/L (22-30) 04/21/21 05:51 Anion Gap 19 mmol/L 04/21/21 05:51 BUN 42 mg/dL (7-17) H 04/21/21 05:51 Creatinine 2.1 mg/dL (0.6-1.2) H 04/21/21 05:51 Estimated GFR 27 ml/min 04/21/21 05:51 BUN/Creatinine Ratio 20 % 04/21/21 05:51 Glucose 171 mg/dL (65-100) H 04/21/21 05:51 POC Glucose 167 mg/dL (70-105) H 04/21/21 12:12 Lactic Acid 1.50 mmol/L (0.7-2.0) 04/15/21 17:20 Calcium 9.3 mg/dL (8.4-10.2) 04/21/21 05:51 Phosphorus 2.10 mg/dL (2.5-4.5) L 04/20/21 03:46 Magnesium 1.90 mg/dL (1.7-2.3) 04/20/21 03:46 Total Bilirubin 0.70 mg/dL (0.1-1.2) 04/16/21 05:02 AST 65 units/L (5-40) H 04/16/21 05:02 ALT 31 units/L (7-56) 04/16/21 05:02 Alkaline Phosphatase 79 units/L (35-129) 04/16/21 05:02 Ammonia 46.0 umol/L (25-60) 04/15/21 17:20 Total Creatine Kinase 427 units/L (30-135) H 04/18/21 05:34 CK-MB (CK-2) 9.1 ng/mL (0.0-4.0) H 04/17/21 15:35 CK-MB (CK-2) Rel Index 1.4 (0-4) 04/17/21 15:35 Troponin T 0.065 ng/mL (0.00-0.029) H 04/20/21 03:32 NT-Pro-B Natriuret Pep 697.9 pg/mL (0-900) 04/15/21 17:20 Total Protein 6.3 g/dL (6.3-8.2) D 04/16/21 05:02 Albumin 3.8 g/dL (3.9-5) L 04/16/21 05:02 Albumin/Globulin Ratio 1.5 % 04/16/21 05:02 Triglycerides 103 mg/dL (2-149) 04/17/21 05:04 Cholesterol 122 mg/dL (50-199) 04/17/21 05:04 LDL Cholesterol Direct 55 mg/dL (50-130) 04/17/21 05:04 HDL Cholesterol 61 mg/dL (40-59) H 04/17/21 05:04 Cholesterol/HDL Ratio 2.00 % 04/17/21 05:04 Procalcitonin 0.20 ng/mL (<0.15) 04/16/21 19:01 TSH 14.190 mlU/mL (0.270-4.200) H 04/15/21 17:20 Thyroxine (T4) 4.1 ug/dL (4.0-12.0) 04/16/21 19:01 Free T3 Index 1.1 pg/mL (2.3-4.2) L 04/16/21 19:01 Arterial Blood Glucose 157 mg/dL (65-95) H 04/20/21 02:56 Arterial Blood Ionized Calcium 4.8 mg/dL (4.6-5.3) 04/20/21 02:56 Urine Color Yellow (Yellow) 04/18/21 09:11 Urine Turbidity Clear (Clear) 04/18/21 09:11 Urine pH 6.0 (5.0-7.0) 04/18/21 09:11 Ur Specific [place] 1.014 (1.003-1.030) 04/18/21 09:11 Urine Protein >500 mg/dL (Negative) 04/18/21 09:11 Urine Glucose (UA) Neg mg/dL (Negative) 04/18/21 09:11 Urine Ketones Neg mg/dL (Negative) 04/18/21 09:11 Urine Blood Sm (Negative) 04/18/21 09:11 Urine Nitrite Neg (Negative) 04/18/21 09:11 Urine Bilirubin Neg (Negative) 04/18/21 09:11 Urine Urobilinogen 2.0 mg/dL (<2.0) 04/18/21 09:11 Ur Leukocyte Esterase Lg (Negative) 04/18/21 09:11 Urine WBC (Auto) 34.0 /HPF (0.0-6.0) H 04/18/21 09:11 Urine RBC (Auto) 18.0 /HPF (0.0-6.0) 04/18/21 09:11 U Epithel Cells (Auto) < 1.0 /HPF (0-13.0) 04/16/21 00:09 Urine Bacteria (Auto) 1+ /HPF (Negative) 04/16/21 00:09 Urine Creatinine 24.4 mg/dL (0.1-20.0) H 04/16/21 00:12 Urine Sodium 97 mmol/L 04/16/21 00:12 Salicylates 4.1 mg/dL (2.8-20.0) 04/15/21 17:20 Acetaminophen 5.0 ug/mL (10.0-30.0) L 04/15/21 17:20 Plasma/Serum Alcohol 0.02 % (0-0.07) 04/15/21 17:20 Coronavirus (PCR) Negative (Negative) 04/16/21 Unknown Microbiology: Microbiology 04/15/21 17:30 Peripheral/Venous Blood Culture - Final NO GROWTH AFTER 5 DAYS 04/15/21 17:20 Peripheral/Venous Blood Culture - Final NO GROWTH AFTER 5 DAYS 04/18/21 15:27 Peripheral/Venous Blood Culture - Preliminary NO GROWTH AFTER 48 HOURS 04/18/21 15:27 Peripheral/Venous Blood Culture - Preliminary NO GROWTH AFTER 48 HOURS Kerr/IV: Voiding Method Indwelling Catheter Active Medications - Current Medications Current Medications: Generic Name Dose Route Start Last Admin Trade Name Freq PRN Reason Stop Dose Admin Acetaminophen 650 mg 04/15/21 19:11 04/19/21 23:33 Acetaminophen 325 Mg Tab PO 650 mg Q6H PRN Administration Pain MILD(1-3)/Fever >100.5/SEXTON Lipase/Protease/Amylase 1 each 04/16/21 12:52 Lipase 10,500/Protease 25,000/Amylase 43,750 (Units) Dr Simpson FEEDTUBE PRN PRN For Clogged Feeding Tube Bisacodyl 10 mg 04/17/21 11:01 04/17/21 13:46 Bisacodyl 10 Mg Rect Supp [place] 10 mg QDAY PRN Administration Constipation Brimonidine Tartrate 1 drops 04/17/21 22:00 04/21/21 10:06 Brimonidine 0.15% Ophth Soln OU 1 drops BID WOLFGANG Administration Epinephrine 0.5 ml 04/21/21 12:56 Epinephrine Racemic 2.25% 0.5ml Nebu IH Q4HRT PRN Shortness Of Breath Famotidine 20 mg 04/17/21 10:00 04/21/21 10:03 Famotidine 20 Mg Tab PO 20 mg DAILY WOLFGANG Administration Heparin Sodium (Porcine) 5,000 unit 04/15/21 22:00 04/21/21 10:04 Heparin 5,000 Unit/1 Ml Vial SUB-Q 5,000 unit Q12HR WOLFGANG Administration Hydralazine HCl 10 mg 04/16/21 18:00 04/21/21 10:32 Hydralazine 20 Mg/1 Ml Inj IV 10 mg Q4HR PRN Administration Hypertension Hydralazine HCl 100 mg 04/21/21 13:32 Hydralazine 25 Mg Tab PO Q8HR [facility] Hydrophilic Ointment 1 applic 04/15/21 17:24 Lip Therapy Vaseline TP Q2HR PRN Dry Lips Propofol 1,000 mg in 100 mls @ 2.91 mls/hr 04/15/21 18:00 04/20/21 07:28 Diprivan 10 Mg/Ml IV 0 mcg/kg/min TITR WOLFGANG 0 mls/hr Titration Protocol 5 MCG/KG/MIN Ceftriaxone Sodium 1 gm in 50 mls @ 100 mls/hr 04/18/21 15:00 04/20/21 14:06 Rocephin/Ns 1 Gm/50 Ml IV 04/22/21 15:29 100 mls/hr Q24H WOLFGANG Administration Protocol Insulin Glargine 15 units 04/21/21 09:00 04/21/21 10:02 Insulin Glargine 100 Units/Ml SUB-Q 15 units QAMDIAB WOLFGANG Administration Insulin Human Lispro 0 unit 05/17/21 15:00 04/21/21 13:08 Insulin Lispro 100 Unit/Ml SUB-Q 2 unit Q6HR WOLFGANG Administration Protocol Latanoprost 1 drops 04/17/21 18:00 04/20/21 17:16 Latanoprost 0.005% Ophth Soln 2.5 Ml OU 1 drops QPM WOLFGANG Administration Levothyroxine Sodium 25 mcg 04/19/21 06:00 04/21/21 06:27 Levothyroxine 25 Mcg Tab PO 25 mcg DAILY@0600 WOLFGANG Administration Methylprednisolone Sodium Succinate 30 mg 04/21/21 13:00 04/21/21 13:10 Methylprednisolone Sod Succinate 40 Mg/1 Ml Inj IV 04/24/21 12:59 30 mg Q6H WOLFGANG Administration Metoprolol Tartrate 25 mg 04/19/21 10:00 04/21/21 10:03 Metoprolol Tartrate 25 Mg Tab PO 25 mg BID WOLFGANG Administration Modafinil 100 mg 04/19/21 10:00 04/21/21 10:03 Modafinil 100 Mg Tab PO 100 mg QAM WOLFGANG Administration Multi-Ingred Cream/Lotion/Oil/Oint 1 applic 04/15/21 17:24 04/16/21 11:19 Mineral Oil/Petrolatum, White Ophth Oint 3.5 Gm OU 1 applic Q4HR PRN Administration Dry Eye(s) Pravastatin Sodium 20 mg 04/19/21 22:00 04/20/21 21:24 Pravastatin 20 Mg Tab PO 20 mg QHS WOLFGANG Administration Scopolamine 1 each 04/20/21 18:00 04/20/21 17:21 Scopolamine Transdermal Patch 72 Hr TD 1 each Q3D WOLFGANG Administration Simple Syrup 15 ml 04/16/21 12:52 Simple Syrup 15 Ml FEEDTUBE PRN PRN Hypoglycemia Simple Syrup 30 ml 04/16/21 12:52 Simple Syrup 15 Ml FEEDTUBE PRN PRN Hypoglycemia Sodium Bicarbonate 325 mg 04/16/21 12:52 Sodium Bicarbonate 325 Mg Tab FEEDTUBE PRN PRN For Clogged Feeding Tube Sodium Chloride 10 ml 04/15/21 22:00 04/21/21 10:06 Sodium Chloride 0.9% 10 Ml Flush Syringe IV 10 ml BID WOLFGANG Administration Sodium Chloride 10 ml 04/15/21 19:11 Sodium Chloride 0.9% 10 Ml Flush Syringe IV PRN PRN LINE FLUSH Timolol Maleate 1 drops 04/19/21 10:00 04/21/21 10:06 Timolol 0.5% Ophth Soln 5 Ml OU 1 drops QDAY WOLFGANG Administration Nutrition/Malnutrition Assess - Dietary Evaluation Nutrition/Malnutrition Findings: Nutrition Notes Start: 04/16/21 12:31 Freq: Status: Active Protocol: Document 04/19/21 10:52 EDWARD (Rec: 04/19/21 10:57 EDWARD [id number]) Co-Sign 04/19/21 10:52 MK Nutrition Notes Need for Assessment generated from: MD Order Initial or Follow up Reassessment Current Diagnosis Acute Kidney Injury,Diabetes, Hypertension,Respiratory Failure Other Pertinent Diagnosis Dementia, AMS, hx BrCA, [place] Current Diet Nepro at 35ml/hr Labs/Tests Na 133 K 2.8 BUN 43 Cr 2.7 BG 255 Ca 8.0 Pertinent Medications Kcl 40 meq Insulin Height 5 ft 6 in Weight 97 kg [place] Body Weight (kg) 59.09 BMI 34.4 Weight Status Obese Subjective/Other Information MD order for write/manage TF. Per chart, pt has dilated small bowel loops, but able to resume TF. TF running at goal at time of visit. RN notified about formula change. Percent of energy/protein needs met: 100%/58% Burn Absent Trauma Absent Difficulty In Swallowing Current % PO Negligible Minimum of two criteria No physical signs of malnutrition #1 Nutrition Diagnosis Inadequate oral intake Diagnosis Progress(for reassessment Continues documentation) Is patient on ventilator? Yes Is Patient Ambulatory and/or Out of Bed No REE-([facility]-confined to bed) 1748.712 Kcal/Kg value to use for calculation 15 Approximate Energy Requirements Using 1455 kcal/Kg Calculation Used for Recommendations Kcal/kg Additional Notes protien needs: >118g (>2 g/ kgIBW) Fluid needs: 1 ml/kcal Nutrition Intervention Change Diet Order: Continue TF Nutrition Support: Initiate Glucerna 1.2 at 20ml/ hr and increase by 15ml q8h until goal rate of 50ml/hr. Flush 50ml q4h for hyponatremia. Flush 80 ml q4h once hyponatremia resolves. Kcal 1,440 Protein (gm) 72 Fluid (mL) 966 Goal #1 Meet 75% energy and protein needs as best as possible via TF Anticipated Discharge Needs: unable to determine at this time Follow-Up By: 04/23/21 Additional Comments F/U for TF formula change and tolerance
--- NOTE | 2021-04-21 13:51 | XRay Report ---
ABDOMEN 1 VIEW(S) 04/21/2021 12:43 PM INDICATION / CLINICAL INFORMATION: dobhoff pllacement. COMPARISON: 04/18/2021 FINDINGS: The tip of a weighted feeding tube projects over the distal pyloric region. Signer Name: Uche Johnson MD Signed: 04/21/2021 1:47 PM Workstation Name: [id number]
--- NOTE | 2021-04-21 14:10 | Event Note ---
Date: 04/21/21 I spoke to patient's nephew Carlos Romero at [phone] and updated him abut current events including extubation, stridor and the need for steroids. Inquired about the use of steroids and increase in blood glucose. Explained to him that the patient is on signs, insulin and long-acting insulin and the dosage will be as adjusted accordingly. Also updated him on transfer as Dr. Gordon was informed that he had a healthcare did not like the transfer to another hospital. Carlos stated that he would call the insurance company to find out why they declined.
[2021-04-21] MEDS: hydrALAZINE 100 MG TAB PO SCH ×2 (15:03→20:34)
[2021-04-21] MEDS: CEFEPIME 0.5 GM in SODIUM CHLORIDE 0.9% 100 ML IV SCH (15:03)
[2021-04-21] MEDS: LATANOPROST 0.005% OPHTH SOLN 2.5 ML OU SCH (17:57)
[2021-04-21] MEDS: PRAVASTATIN 20 MG TAB PO SCH (21:40)
[2021-04-22] MEDS: methylPREDNISolone Sod Succinate 40 MG/1 ML INJ IV SCH ×4 (00:42→18:21)
[2021-04-22] MEDS: INSULIN LISPRO 100 UNIT/ML SUB-Q SCH ×5 (06:18→23:20)
[2021-04-22] MEDS: LEVOTHYROXINE 25 MCG TAB PO SCH (06:18)
[2021-04-22] MEDS: hydrALAZINE 100 MG TAB PO SCH ×3 (07:05→20:03)
[2021-04-22] MEDS: INSULIN GLARGINE 100 UNITS/ML SUB-Q SCH ×2 (07:05→09:00)
[2021-04-22 08:20] LABS: Hematocrit 36.2 % (30.3-42.9); Hemoglobin 11.6 gm/dl (10.1-14.3); Mean Corpuscular HGB Conc 32 % (30-34); Mean Corpuscular Volume 95 fl (79-97); Platelet Count 257 K/mm3 (140-440); Red Cell Distribution Width 14.8 % (13.2-15.2)
[2021-04-22 08:39] LABS: Calcium 9.7 mg/dL (8.4-10.2)
[2021-04-22] MEDS: HEPARIN 5,000 UNIT/1 ML VIAL SUB-Q SCH ×2 (09:40→21:27)
[2021-04-22] MEDS: amLODIPine 5 MG TAB PO SCH (09:41)
[2021-04-22] MEDS: hydrALAZINE 20 MG/1 ML INJ IV PRN ×3 (09:41→23:17)
[2021-04-22] MEDS: MODAFINIL 100 MG TAB PO SCH (09:41)
[2021-04-22] MEDS: FAMOTIDINE 20 MG TAB PO SCH (09:42)
[2021-04-22] MEDS: METOPROLOL TARTRATE 25 MG TAB PO SCH ×2 (09:42→21:27)
[2021-04-22] MEDS: BRIMONIDINE 0.15% OPHTH SOLN OU SCH ×2 (09:43→21:28)
[2021-04-22] MEDS: CEFEPIME 0.5 GM in SODIUM CHLORIDE 0.9% 100 ML IV SCH (09:43)
[2021-04-22] MEDS: TIMOLOL 0.5% OPHTH SOLN 5 ML OU SCH (09:47)
--- NOTE | 2021-04-22 12:06 | Progress Note ---
Assessment and Plan Assessment and plan: This is a 80-year-old female with HTN, DM, GA, breast CA s/p double mastectomy, TIA who presented with hypoglycemia, AMS who was admitted with SIRS, symptomatic bradycardia, acute metabolic encephalopathy, acute hypoxic respiratory failure, elevated TSH, hyperglycemia, hyponatremia, hypokalemia, ROJELIO and rhabdomyolysis Acute metabolic encephalopathy Acute hypoxic respiratory failure (extubated 04/20) First-degree heart block Resolved ileus versus mechanical obstruction Acute kidney injury UTI, Pseudomonas Possible seizure activity Elevated TSH Mild rhabdomyolysis Hypertension Diabetes mellitus CAD Obesity -[facility], cardiology, nephrology, neurology, nutrition consulted, appreciate recommendations -04/15 CT head shows age-related atrophic change, chronic small vessel ischemic change, no CT evidence of acute large vessel territory ischemic injury, hemorrhage or mass -04/15 echocardiogram shows left ventricular systolic function borderline, LVEF 45 to 50%, mild concentric LVH, paradoxical septal motion consistent with left bundle branch block with no clot identified in the left ventricle, calcified aortic valve without regurgitation or stenosis, trace MR, trace TR, no IL, RVSP is 24 mmHg -04/17 KUB shows gas-filled and dilated loops of small bowel noted over the upper abdomen largest measuring 5 cm concerning for ileus versus mechanical obstruction -04/18 KUB shows interval resolution of previously seen small bowel dilation -04/18 EEG pending -04/19 MRI brain shows no restricted diffusion, no hemorrhage,, no radiation, findings consistent with chronic microvascular disease, small bilateral mastoid effusions, mucosal thickening throughout the paranasal sinuses seen within the maxillary sinuses -S/p antibiotic therapy x1, currently on abd for UTI -S/p D10 and D5W gtt, on TF -Accu-Cheks every 6, SSI, long acting insulin -S/p IV calcium gluconate, regular insulin, D50 -S/p transcutaneous pacing, intermittent demand pacer in place -Renal ultrasound pending -Blood pressure monitoring per protocol -IV hydralazine as needed -Avoid ACEi/ARB in setting of ROJELIO -Avoid AV arron blocking agents -Avoid nephrotoxic agents and renally dose medications -BB, add home antihtn regimen as needed -Iv abx -TSH 14.1, T4 4.1, T3 pending-started on levothyroxine -Provegil -s/p racemic epinephrine x2 -Steroids -BiPAP as needed -Trend CBC, BMP, CK DVT/GI prophylaxis: Heparin subcu, PPI, SCDs to bilateral lower extremities while in bed Disposition: ICU The high probability of a clinically significant, sudden or life threatening deterioration of the [multi] system(s) required my full and direct attention, intervention and personal management. The aggregate critical care time was [35] minutes. This time is in addition to time spent performing reported procedures but includes the following: [x] Data Review and interpretation [x] Patient assessment and monitoring of vital signs [x] Documentation [x] Medication orders and management History Interval history: This is a 80-year-old female with hypertension, diabetes mellitus, GA, breast cancer s/p double mastectomy, and a TIA who presented with hypoglycemia and altered mental status on 04/15 via EMS. Per EMS patient was unresponsive on their arrival and her blood glucose was 38 and she received 1 amp of dextrose patient continued to be unresponsive and only moaned with her eyes deviating to the left. Work-up in the emergency department revealed SIRS, symptomatic bradycardia, acute metabolic encephalopathy, acute hypoxic respiratory failure, elevated TSH, hyperglycemia, hyponatremia, hyperkalemia, acute kidney injury with ATN, and rhabdomyolysis 04/16: Neurology consulted, COVID-19 PCR negative, D10 drip decreased and eventually discontinued by [facility] and started on D5W for 1 L. Hydralazine as needed. Patient had hyper kalemia today and was treated with D50, insulin and Kayexalate. This time examination patient is on assist control tidal volume 450, rate of 16, PEEP of 6 and 25% FiO2. 04/17: Patient started on low-dose beta-angel per cardiology, CPAP trial again per CCM, BUN/creatinine holding steady and hypochloremia/hyponatremia slightly improved and hypokalemia has resolved. This morning a KUB was obtained which was concerning for ileus versus mechanical obstruction and surgery was consulted. Patient was made n.p.o. and NG tube placed to wall suction. Patient was given suppository. Per RN patient did not have a BM even though she was given Kayexalate yesterday. Will obtain a KUB in the a.m. Neurology was consulted yesterday and will await further recommendations. Nephew updated at bedside today, Carlos Romero. 04/18: Neurology has ordered EEG/MRI B, [facility] continues to wean MV. Persistent low grade temperature so we will obtain BCx2/UA. Patient has improving leukocytosis, hyponatremia, renal function studies and hypochloremia. She has hypokalemia to day which is being repleted. Surgery has signed off today and has okayed resumption of TF. [facility] will trial CPAP for longer today and plans to attempt extubation in AM. Family has requested transfer to [place] [facility] and Dr. Gordon will attempt to contact transfer center. I updated her nephew, Carlos Romero over the phone today abouyt current events and update on transfer ([place] [facility] will conduct a utilization review) 04/19: This morning patient is on CPAP trial at the time of examination, noted to be hypertensive and metoprolol increased to home dose, started on synthroid by [facility], lantus started re hyperglycemia, MRI completed with no acute findings. Severe hypokalemia (repleted and Mg pending). [facility] will contact CPAP trial again today with possible trial extubation tomorrow. 04/20: Patient's leukocytosis and kidney function tests continue to improve. Patient is hypertensive overnight we will restart home hydralazine. [facility] plans to extubate patient today. Family is attempting to transfer to another facility. EEG pending, RT will atmept to contact electrical power station technician. Urine culture grew gram negative rods. Increase in lantus 04/21: Increase in Lantus, repleted phos. Patient has started this afternoon and was given racemic epinephrine and started on steroids. Patient will have BiPAP as needed. We will recheck BMP in the a.m. renal function studies continues to decrease. Patient has been hypertensive on evaluation regimen has been changed. 04/22: Lantus increased for hyperglycemia and add amlodipine for better BP control. Patient is on steroids. OT suctioned by RN with catheter in oral care kit and received copious amounts of secretions. Cr continues to decrease. Culture grew Pseudomonas and was changed in accordance to sensitivity. Kerr removed today after clearance from nephrology. Hospitalist Physical - Constitutional Vitals: Temp Pulse Resp BP Pulse Ox 98.4 F 88 22 218/118 100 04/22/21 08:00 04/22/21 09:42 04/22/21 07:51 04/22/21 09:42 04/22/21 10:01 General appearance: Present: no acute distress, other (sedated) HEART Score - HEART Score Troponin: Troponin T 0.065 ng/mL (0.00-0.029) H 04/20/21 03:32 Results - Labs CBC & Chem 7: 04/22/21 08:00 04/22/21 08:00 Labs: Laboratory Last Values WBC 12.9 K/mm3 (4.5-11.0) H 04/22/21 08:00 RBC 3.80 M/mm3 (3.65-5.03) 04/22/21 08:00 Hgb 11.6 gm/dl (10.1-14.3) 04/22/21 08:00 Hct 36.2 % (30.3-42.9) 04/22/21 08:00 MCV 95 fl (79-97) 04/22/21 08:00 MCH 31 pg (28-32) 04/22/21 08:00 MCHC 32 % (30-34) 04/22/21 08:00 RDW 14.8 % (13.2-15.2) 04/22/21 08:00 Plt Count 257 K/mm3 (140-440) 04/22/21 08:00 Lymph % (Auto) 12.8 % (13.4-35.0) L 04/15/21 17:20 [place] % (Auto) 4.1 % (0.0-7.3) 04/15/21 17:20 Eos % (Auto) 0.3 % (0.0-4.3) 04/15/21 17:20 Baso % (Auto) 0.4 % (0.0-1.8) 04/15/21 17:20 Lymph # (Auto) 1.4 K/mm3 (1.2-5.4) 04/15/21 17:20 [place] # (Auto) 0.5 K/mm3 (0.0-0.8) 04/15/21 17:20 Eos # (Auto) 0.0 K/mm3 (0.0-0.4) 04/15/21 17:20 Baso # (Auto) 0.0 K/mm3 (0.0-0.1) 04/15/21 17:20 Add Manual Diff Complete 04/16/21 05:02 Total Counted 100 04/16/21 05:02 Seg Neutrophils % 82.4 % (40.0-70.0) H 04/15/21 17:20 Seg Neuts % (Manual) 84.0 % (40.0-70.0) H 04/16/21 05:02 Band Neutrophils % 3.0 % 04/16/21 05:02 Lymphocytes % (Manual) 2.0 % (13.4-35.0) L 04/16/21 05:02 Monocytes % (Manual) 10.0 % (0.0-7.3) H 04/16/21 05:02 Metamyelocytes % 1.0 % 04/16/21 05:02 Nucleated RBC % Not Reportable 04/16/21 05:02 Seg Neutrophils # 9.3 K/mm3 (1.8-7.7) H 04/15/21 17:20 Seg Neutrophils # Man 17.8 K/mm3 (1.8-7.7) H 04/16/21 05:02 Band Neutrophils # 0.6 K/mm3 04/16/21 05:02 Lymphocytes # (Manual) 0.4 K/mm3 (1.2-5.4) L 04/16/21 05:02 Abs React Lymphs (Man) 0.0 K/mm3 04/16/21 05:02 Monocytes # (Manual) 2.1 K/mm3 (0.0-0.8) H 04/16/21 05:02 Eosinophils # (Manual) 0.0 K/mm3 (0.0-0.4) 04/16/21 05:02 Basophils # (Manual) 0.0 K/mm3 (0.0-0.1) 04/16/21 05:02 Metamyelocytes # 0.2 K/mm3 04/16/21 05:02 Myelocytes # 0.0 K/mm3 04/16/21 05:02 Promyelocytes # 0.0 K/mm3 04/16/21 05:02 Blast Cells # 0.0 K/mm3 04/16/21 05:02 WBC Morphology Not Reportable 04/16/21 05:02 Hypersegmented Neuts Not Reportable 04/16/21 05:02 Hyposegmented Neuts Not Reportable 04/16/21 05:02 Hypogranular Neuts Not Reportable 04/16/21 05:02 Smudge Cells Not Reportable 04/16/21 05:02 Toxic Granulation Not Reportable 04/16/21 05:02 Toxic Vacuolation Not Reportable 04/16/21 05:02 Dohle Bodies Not Reportable 04/16/21 05:02 Pelger-Huet Anomaly Not Reportable 04/16/21 05:02 Peterson Rods Not Reportable 04/16/21 05:02 Platelet Estimate Consistent w auto 04/16/21 05:02 Clumped Platelets Not Reportable 04/16/21 05:02 Plt Clumps, EDTA Not Reportable 04/16/21 05:02 Large Platelets Not Reportable 04/16/21 05:02 Giant Platelets Not Reportable 04/16/21 05:02 Platelet Satelliting Not Reportable 04/16/21 05:02 Plt Morphology Comment Not Reportable 04/16/21 05:02 RBC Morphology Not Reportable 04/16/21 05:02 Dimorphic RBCs Not Reportable 04/16/21 05:02 Polychromasia Not Reportable 04/16/21 05:02 Hypochromasia Not Reportable 04/16/21 05:02 Poikilocytosis Not Reportable 04/16/21 05:02 Anisocytosis Few 04/16/21 05:02 Microcytosis Not Reportable 04/16/21 05:02 Macrocytosis Not Reportable 04/16/21 05:02 Spherocytes Not Reportable 04/16/21 05:02 Pappenheimer Bodies Not Reportable 04/16/21 05:02 Sickle Cells Not Reportable 04/16/21 05:02 Target Cells Not Reportable 04/16/21 05:02 Tear Drop Cells Not Reportable 04/16/21 05:02 Ovalocytes Not Reportable 04/16/21 05:02 Helmet Cells Not Reportable 04/16/21 05:02 [place] Bodies Not Reportable 04/16/21 05:02 [place] Rings Not Reportable 04/16/21 05:02 Theo Cells Not Reportable 04/16/21 05:02 Bite Cells Not Reportable 04/16/21 05:02 Crenated Cell Not Reportable 04/16/21 05:02 Elliptocytes Not Reportable 04/16/21 05:02 Acanthocytes (Spur) Not Reportable 04/16/21 05:02 Rouleaux Not Reportable 04/16/21 05:02 Hemoglobin C Crystals Not Reportable 04/16/21 05:02 Schistocytes Not Reportable 04/16/21 05:02 Malaria parasites Not Reportable 04/16/21 05:02 James Bodies Not Reportable 04/16/21 05:02 Hem Pathologist Commnt No 04/16/21 05:02 PT 12.2 Sec. (12.2-14.9) 04/15/21 17:20 INR 0.91 (0.87-1.13) 04/15/21 17:20 APTT 31.8 Sec. (24.2-36.6) 04/15/21 17:20 ABG pH 7.526 (7.320-7.450) H 04/20/21 02:56 POC ABG pCO2 35.7 mmHg (32.0-48.0) 04/20/21 02:56 POC ABG pO2 105.1 mmHg (83-108) 04/20/21 02:56 POC ABG HCO3 28.9 04/20/21 02:56 ABG O2 Saturation 98.2 (0-100) 04/20/21 02:56 POC ABG Base Excess 5.9 04/20/21 02:56 ABG Hemoglobin 10.5 (12.0-17.5) L 04/20/21 02:56 ABG Oxyhemoglobin 97.6 (94-98) 04/20/21 02:56 ABG Methemoglobin 0.3 (0.0-1.5) 04/20/21 02:56 ABG Sodium 133.5 mmol/L (136.0-145.0) L 04/20/21 02:56 ABG Potassium 3.7 mmol/L (3.40-4.50) 04/20/21 02:56 ABG Chloride 99.0 mmol/L (98-107) 04/20/21 02:56 ABG Glucose 157 mg/dL (65-95) H 04/20/21 02:56 Carboxyhemoglobin 0.3 (0.5-1.5) L 04/20/21 02:56 FiO2 % 25.0 04/20/21 02:56 Sodium 140 mmol/L (137-145) 04/22/21 08:00 Potassium 3.9 mmol/L (3.6-5.0) 04/22/21 08:00 Chloride 98.1 mmol/L (98-107) 04/22/21 08:00 Carbon Dioxide 28 mmol/L (22-30) 04/22/21 08:00 Anion Gap 18 mmol/L 04/22/21 08:00 BUN 47 mg/dL (7-17) H 04/22/21 08:00 Creatinine 1.9 mg/dL (0.6-1.2) H 04/22/21 08:00 Estimated GFR 31 ml/min 04/22/21 08:00 BUN/Creatinine Ratio 25 % 04/22/21 08:00 Glucose 252 mg/dL (65-100) H 04/22/21 08:00 POC Glucose 208 mg/dL (70-105) H 04/22/21 05:29 Lactic Acid 1.50 mmol/L (0.7-2.0) 04/15/21 17:20 Calcium 9.7 mg/dL (8.4-10.2) 04/22/21 08:00 Phosphorus 2.60 mg/dL (2.5-4.5) 04/22/21 08:00 Magnesium 1.90 mg/dL (1.7-2.3) 04/20/21 03:46 Total Bilirubin 0.70 mg/dL (0.1-1.2) 04/16/21 05:02 AST 65 units/L (5-40) H 04/16/21 05:02 ALT 31 units/L (7-56) 04/16/21 05:02 Alkaline Phosphatase 79 units/L (35-129) 04/16/21 05:02 Ammonia 46.0 umol/L (25-60) 04/15/21 17:20 Total Creatine Kinase 427 units/L (30-135) H 04/18/21 05:34 CK-MB (CK-2) 9.1 ng/mL (0.0-4.0) H 04/17/21 15:35 CK-MB (CK-2) Rel Index 1.4 (0-4) 04/17/21 15:35 Troponin T 0.065 ng/mL (0.00-0.029) H 04/20/21 03:32 NT-Pro-B Natriuret Pep 697.9 pg/mL (0-900) 04/15/21 17:20 Total Protein 6.3 g/dL (6.3-8.2) D 04/16/21 05:02 Albumin 3.8 g/dL (3.9-5) L 04/16/21 05:02 Albumin/Globulin Ratio 1.5 % 04/16/21 05:02 Triglycerides 103 mg/dL (2-149) 04/17/21 05:04 Cholesterol 122 mg/dL (50-199) 04/17/21 05:04 LDL Cholesterol Direct 55 mg/dL (50-130) 04/17/21 05:04 HDL Cholesterol 61 mg/dL (40-59) H 04/17/21 05:04 Cholesterol/HDL Ratio 2.00 % 04/17/21 05:04 Procalcitonin 0.20 ng/mL (<0.15) 04/16/21 19:01 TSH 14.190 mlU/mL (0.270-4.200) H 04/15/21 17:20 Thyroxine (T4) 4.1 ug/dL (4.0-12.0) 04/16/21 19:01 Free T3 Index 1.1 pg/mL (2.3-4.2) L 04/16/21 19:01 Arterial Blood Glucose 157 mg/dL (65-95) H 04/20/21 02:56 Arterial Blood Ionized Calcium 4.8 mg/dL (4.6-5.3) 04/20/21 02:56 Urine Color Yellow (Yellow) 04/18/21 09:11 Urine Turbidity Clear (Clear) 04/18/21 09:11 Urine pH 6.0 (5.0-7.0) 04/18/21 09:11 Ur Specific [place] 1.014 (1.003-1.030) 04/18/21 09:11 Urine Protein >500 mg/dL (Negative) 04/18/21 09:11 Urine Glucose (UA) Neg mg/dL (Negative) 04/18/21 09:11 Urine Ketones Neg mg/dL (Negative) 04/18/21 09:11 Urine Blood Sm (Negative) 04/18/21 09:11 Urine Nitrite Neg (Negative) 04/18/21 09:11 Urine Bilirubin Neg (Negative) 04/18/21 09:11 Urine Urobilinogen 2.0 mg/dL (<2.0) 04/18/21 09:11 Ur Leukocyte Esterase Lg (Negative) 04/18/21 09:11 Urine WBC (Auto) 34.0 /HPF (0.0-6.0) H 04/18/21 09:11 Urine RBC (Auto) 18.0 /HPF (0.0-6.0) 04/18/21 09:11 U Epithel Cells (Auto) < 1.0 /HPF (0-13.0) 04/16/21 00:09 Urine Bacteria (Auto) 1+ /HPF (Negative) 04/16/21 00:09 Urine Creatinine 24.4 mg/dL (0.1-20.0) H 04/16/21 00:12 Urine Sodium 97 mmol/L 04/16/21 00:12 Salicylates 4.1 mg/dL (2.8-20.0) 04/15/21 17:20 Acetaminophen 5.0 ug/mL (10.0-30.0) L 04/15/21 17:20 Plasma/Serum Alcohol 0.02 % (0-0.07) 04/15/21 17:20 Coronavirus (PCR) Negative (Negative) 04/16/21 Unknown Microbiology: Microbiology 04/18/21 15:27 Peripheral/Venous Blood Culture - Preliminary NO GROWTH AFTER 72 HOURS 04/18/21 15:27 Peripheral/Venous Blood Culture - Preliminary NO GROWTH AFTER 72 HOURS 04/18/21 09:11 Urine,Clean Catch Urine Culture - Preliminary Pseudomonas Aeruginosa Kerr/IV: Voiding Method Indwelling Catheter Active Medications - Current Medications Current Medications: Generic Name Dose Route Start Last Admin Trade Name Freq PRN Reason Stop Dose Admin Acetaminophen 650 mg 04/15/21 19:11 04/19/21 23:33 Acetaminophen 325 Mg Tab PO 650 mg Q6H PRN Administration Pain MILD(1-3)/Fever >100.5/SEXTON Amlodipine Besylate 5 mg 04/22/21 10:00 04/22/21 09:41 Amlodipine 5 Mg Tab PO 5 mg QDAY WOLFGANG Administration Lipase/Protease/Amylase 1 each 04/16/21 12:52 Lipase 10,500/Protease 25,000/Amylase 43,750 (Units) Dr Simpson FEEDTUBE PRN PRN For Clogged Feeding Tube Bisacodyl 10 mg 04/17/21 11:01 04/17/21 13:46 Bisacodyl 10 Mg Rect Supp IL 10 mg QDAY PRN Administration Constipation Brimonidine Tartrate 1 drops 04/17/21 22:00 04/22/21 09:43 Brimonidine 0.15% Ophth Soln OU 1 drops BID WOLFGANG Administration Epinephrine 0.5 ml 04/21/21 12:56 Epinephrine Racemic 2.25% 0.5ml Nebu IH Q4HRT PRN Shortness Of Breath Famotidine 20 mg 04/17/21 10:00 04/22/21 09:42 Famotidine 20 Mg Tab PO 20 mg DAILY WOLFGANG Administration Heparin Sodium (Porcine) 5,000 unit 04/15/21 22:00 04/22/21 09:40 Heparin 5,000 Unit/1 Ml Vial SUB-Q 5,000 unit Q12HR WOLFGANG Administration Hydralazine HCl 10 mg 04/16/21 18:00 04/22/21 09:41 Hydralazine 20 Mg/1 Ml Inj IV 10 mg Q4HR PRN Administration Hypertension Hydralazine HCl 100 mg 04/21/21 14:00 04/22/21 07:05 Hydralazine 100 Mg Tab PO 100 mg TID WOLFGANG Administration Hydrophilic Ointment 1 applic 04/15/21 17:24 Lip Therapy Vaseline TP Q2HR PRN Dry Lips Propofol 1,000 mg in 100 mls @ 2.91 mls/hr 04/15/21 18:00 04/20/21 07:28 Diprivan 10 Mg/Ml IV 0 mcg/kg/min TITR WOLFGANG 0 mls/hr Titration Protocol 5 MCG/KG/MIN Insulin Glargine 20 units 04/22/21 07:58 04/22/21 09:00 Insulin Glargine 100 Units/Ml SUB-Q 20 units QAMDIAB WOLFGANG Administration Insulin Human Lispro 0 unit 04/16/21 15:00 04/22/21 06:18 Insulin Lispro 100 Unit/Ml SUB-Q 3 unit Q6HR WOLFGANG Administration Protocol Latanoprost 1 drops 04/17/21 18:00 04/21/21 17:57 Latanoprost 0.005% Ophth Soln 2.5 Ml OU 1 drops QPM WOLFGANG Administration Levothyroxine Sodium 25 mcg 04/19/21 06:00 04/22/21 06:18 Levothyroxine 25 Mcg Tab PO 25 mcg DAILY@0600 WOLFGANG Administration Methylprednisolone Sodium Succinate 30 mg 04/21/21 13:00 04/22/21 06:18 Methylprednisolone Sod Succinate 40 Mg/1 Ml Inj IV 04/24/21 12:59 30 mg Q6H WOLFGANG Administration Metoprolol Tartrate 25 mg 04/19/21 10:00 04/22/21 09:42 Metoprolol Tartrate 25 Mg Tab PO 25 mg BID WOLFGANG Administration Modafinil 100 mg 04/19/21 10:00 04/22/21 09:41 Modafinil 100 Mg Tab PO 100 mg QAM WOLFGANG Administration Multi-Ingred Cream/Lotion/Oil/Oint 1 applic 04/15/21 17:24 04/16/21 11:19 Mineral Oil/Petrolatum, White Ophth Oint 3.5 Gm OU 1 applic Q4HR PRN Administration Dry Eye(s) Pravastatin Sodium 20 mg 04/19/21 22:00 04/21/21 21:40 Pravastatin 20 Mg Tab PO 20 mg QHS WOLFGANG Administration Scopolamine 1 each 04/20/21 18:00 04/20/21 17:21 Scopolamine Transdermal Patch 72 Hr TD 1 each Q3D WOLFGANG Administration Simple Syrup 15 ml 04/16/21 12:52 Simple Syrup 15 Ml FEEDTUBE PRN PRN Hypoglycemia Simple Syrup 30 ml 04/16/21 12:52 Simple Syrup 15 Ml FEEDTUBE PRN PRN Hypoglycemia Sodium Bicarbonate 325 mg 04/16/21 12:52 Sodium Bicarbonate 325 Mg Tab FEEDTUBE PRN PRN For Clogged Feeding Tube Sodium Chloride 10 ml 04/15/21 22:00 04/22/21 09:45 Sodium Chloride 0.9% 10 Ml Flush Syringe IV 10 ml BID WOLFGANG Administration Sodium Chloride 10 ml 04/15/21 19:11 Sodium Chloride 0.9% 10 Ml Flush Syringe IV PRN PRN LINE FLUSH Timolol Maleate 1 drops 04/19/21 10:00 04/22/21 09:47 Timolol 0.5% Ophth Soln 5 Ml OU 1 drops QDAY WOLFGANG Administration Nutrition/Malnutrition Assess - Dietary Evaluation Nutrition/Malnutrition Findings: Nutrition Notes Start: 04/16/21 12:31 Freq: Status: Active Protocol: Document 04/19/21 10:52 EDWARD (Rec: 04/19/21 10:57 EDWARD [id number]) Co-Sign 04/19/21 10:52 Nutrition Notes Need for Assessment generated from: MD Order Initial or Follow up Reassessment Current Diagnosis Acute Kidney Injury,Diabetes, Hypertension,Respiratory Failure Other Pertinent Diagnosis Dementia, AMS, hx BrCA, GA Current Diet Nepro at 35ml/hr Labs/Tests Na 133 K 2.8 BUN 43 Cr 2.7 BG 255 Ca 8.0 Pertinent Medications Kcl 40 meq Insulin Height 5 ft 6 in Weight 97 kg Reading Body Weight (kg) 59.09 BMI 34.4 Weight Status Obese Subjective/Other Information MD order for write/manage TF. Per chart, pt has dilated small bowel loops, but able to resume TF. TF running at goal at time of visit. RN notified about formula change. Percent of energy/protein needs met: 100%/58% Burn Absent Trauma Absent Difficulty In Swallowing Current % PO Negligible Minimum of two criteria No physical signs of malnutrition #1 Nutrition Diagnosis Inadequate oral intake Diagnosis Progress(for reassessment Continues documentation) Is patient on ventilator? Yes Is Patient Ambulatory and/or Out of Bed No REE-([facility]-confined to bed) 1748.712 Kcal/Kg value to use for calculation 15 Approximate Energy Requirements Using 1455 kcal/Kg Calculation Used for Recommendations Kcal/kg Additional Notes protien needs: >118g (>2 g/ kgIBW) Fluid needs: 1 ml/kcal Nutrition Intervention Change Diet Order: Continue TF Nutrition Support: Initiate Glucerna 1.2 at 20ml/ hr and increase by 15ml q8h until goal rate of 50ml/hr. Flush 50ml q4h for hyponatremia. Flush 80 ml q4h once hyponatremia resolves. Kcal 1,440 Protein (gm) 72 Fluid (mL) 966 Goal #1 Meet 75% energy and protein needs as best as possible via TF Anticipated Discharge Needs: unable to determine at this time Follow-Up By: 04/23/21 Additional Comments F/U for TF formula change and tolerance
--- NOTE | 2021-04-22 12:11 | Progress Note ---
Assessment and Plan 1. Acute kidney injury: Likely vasomotor ROJELIO. ATN likely. Renal US negative for hydro. Baseline renal function is unknown. Monitor renal function. Non-oliguric. Creatinine level is improving. Avoid nephrotoxic agents. Meds dosage based on GFR. 2. FEN: Hypokalemia, K level is better, monitor. Hyponatremia, improved. Monitor lytes and volume status. 3. Acute hypoxemic respiratory failure: S/p extubated, on VM. 4. Acute encephalopathy: Hypoglycemia. MRI brain negative. 5. Leukocytosis. 6. Hypertension. 7. DM type 2. 8. Mild rhabdomyolysis. 9. Mildly complex R renal cyst. Subjective: Patient was seen and examined at the bedside. Examination: General appearance: well-developed, appears stated age, no distress, obese, NG tube HEENT: BRUCE, atraumatic Neck: trachea midline Respiratory: Clear to Auscultation Heart: S1S2, regular, no murmur Abdomen: soft, obese, bowel sounds heard, NT Integumentary: no obvious rash Neurologic: lethargic, non-verbal, not following any command Ext: no edema noted Subjective Date of service: 04/22/21 Principal diagnosis: Ac. resp failure; AMS; Hypoglycemia; ROJELIO; Hyperkalemia; DM II Objective - Vital Signs Vital signs: Vital Signs - 12hr 04/22/21 04/22/21 04/22/21 00:30 01:00 01:40 Temperature Pulse Rate 78 84 81 Pulse Rate [ From Monitor] Respiratory 21 23 22 Rate Blood Pressure 140/82 164/67 O2 Sat by Pulse 98 96 96 Oximetry 04/22/21 04/22/21 04/22/21 02:00 02:30 03:00 Temperature Pulse Rate 91 H 95 H 83 Pulse Rate [ From Monitor] Respiratory 13 24 26 H Rate Blood Pressure 118/79 201/94 201/94 O2 Sat by Pulse 97 97 99 Oximetry 04/22/21 04/22/21 04/22/21 03:14 03:30 04:00 Temperature 98.8 F Pulse Rate 85 93 H Pulse Rate [ 98 H From Monitor] Respiratory 23 18 Rate Blood Pressure 199/74 199/74 O2 Sat by Pulse 98 99 Oximetry 04/22/21 04/22/21 04/22/21 04:30 05:00 05:30 Temperature Pulse Rate 79 91 H 78 Pulse Rate [ From Monitor] Respiratory 19 21 22 Rate Blood Pressure 207/78 145/64 90/66 O2 Sat by Pulse 98 99 98 Oximetry 04/22/21 04/22/21 04/22/21 06:00 06:30 07:00 Temperature Pulse Rate 90 88 83 Pulse Rate [ From Monitor] Respiratory 26 H 23 24 Rate Blood Pressure 184/85 184/85 185/101 O2 Sat by Pulse 94 96 100 Oximetry 04/22/21 04/22/21 04/22/21 07:30 07:51 08:00 Temperature 98.4 F Pulse Rate 95 H Pulse Rate [ 87 From Monitor] Respiratory 24 22 Rate Blood Pressure 174/93 O2 Sat by Pulse 99 99 Oximetry 04/22/21 04/22/21 04/22/21 09:41 09:42 10:01 Temperature Pulse Rate 85 88 Pulse Rate [ From Monitor] Respiratory Rate Blood Pressure 218/118 218/118 O2 Sat by Pulse 100 Oximetry - Lab 04/22/21 08:00 04/22/21 08:00 Most recent lab results ABG pH 7.526 (7.320-7.450) H 04/20/21 02:56 ABG O2 Saturation 98.2 (0-100) 04/20/21 02:56 Calcium 9.7 mg/dL (8.4-10.2) 04/22/21 08:00 Phosphorus 2.60 mg/dL (2.5-4.5) 04/22/21 08:00 Magnesium 1.90 mg/dL (1.7-2.3) 04/20/21 03:46 Urine Creatinine 24.4 mg/dL (0.1-20.0) H 04/16/21 00:12 Urine Sodium 97 mmol/L 04/16/21 00:12 Medications & Allergies - Medications Allergies/Adverse Reactions: Allergies No Known Allergies Allergy (Unverified 04/15/21 17:41) Home Medications: Home Medications Medication Instructions Recorded Confirmed Last Taken Type Betaxolol HCl [Betoptic S 0.25% 1 drop OU BID 04/16/21 04/16/21 Unknown History SUSP] Bimatoprost [Lumigan 0.01%] 1 drop OU QPM 04/16/21 04/16/21 Unknown History Brimonidine Tartrate [Brimonidine 5 ml OU BID 04/16/21 04/16/21 Unknown History Tartrate 0.2%] Furosemide [Lasix TAB] 40 mg PO QDAY 04/16/21 04/16/21 Unknown History Gabapentin [Neurontin] 300 mg PO Q8HR 04/16/21 04/16/21 Unknown History HYDROcodone/APAP 10-325 [[place] 1 each PO Q6HR PRN 04/16/21 04/16/21 Unknown History 10/325] Hydralazine HCl 50 mg PO Q4HR 04/16/21 04/16/21 Unknown History Insulin Aspart Prot/Insuln Asp 52 units SQ HS 04/16/21 04/16/21 Unknown History [Novolog Mix 70-30 Flexpen] Metoprolol [Lopressor] 25 mg PO BID 04/16/21 04/16/21 Unknown History Pravastatin [Pravachol] 20 mg PO QHS 04/16/21 04/16/21 Unknown History Promethazine [Phenergan] 25 mg PO Q6HR 04/16/21 04/16/21 Unknown History allopurinoL [Zyloprim] 150 mg PO QDAY 04/16/21 04/16/21 Unknown History Active Medications: Generic Name Dose Route Start Last Admin Trade Name Freq PRN Reason Stop Dose Admin Acetaminophen 650 mg 04/15/21 19:11 04/19/21 23:33 Acetaminophen 325 Mg Tab PO 650 mg Q6H PRN Administration Pain MILD(1-3)/Fever >100.5/SEXTON Amlodipine Besylate 5 mg 04/22/21 10:00 04/22/21 09:41 Amlodipine 5 Mg Tab PO 5 mg QDAY WOLFGANG Administration Lipase/Protease/Amylase 1 each 04/16/21 12:52 Lipase 10,500/Protease 25,000/Amylase 43,750 (Units) Dr Simpson FEEDTUBE PRN PRN For Clogged Feeding Tube Bisacodyl 10 mg 04/17/21 11:01 04/17/21 13:46 Bisacodyl 10 Mg Rect Supp NH 10 mg QDAY PRN Administration Constipation Brimonidine Tartrate 1 drops 04/17/21 22:00 04/22/21 09:43 Brimonidine 0.15% Ophth Soln OU 1 drops BID WOLFGANG Administration Epinephrine 0.5 ml 04/21/21 12:56 Epinephrine Racemic 2.25% 0.5ml Nebu IH Q4HRT PRN Shortness Of Breath Famotidine 20 mg 04/17/21 10:00 04/22/21 09:42 Famotidine 20 Mg Tab PO 20 mg DAILY WOLFGANG Administration Heparin Sodium (Porcine) 5,000 unit 04/15/21 22:00 04/22/21 09:40 Heparin 5,000 Unit/1 Ml Vial SUB-Q 5,000 unit Q12HR WOLFGANG Administration Hydralazine HCl 10 mg 04/16/21 18:00 04/22/21 09:41 Hydralazine 20 Mg/1 Ml Inj IV 10 mg Q4HR PRN Administration Hypertension Hydralazine HCl 100 mg 04/21/21 14:00 04/22/21 07:05 Hydralazine 100 Mg Tab PO 100 mg TID WOLFGANG Administration Hydrophilic Ointment 1 applic 04/15/21 17:24 Lip Therapy Vaseline TP Q2HR PRN Dry Lips Propofol 1,000 mg in 100 mls @ 2.91 mls/hr 04/15/21 18:00 04/20/21 07:28 Diprivan 10 Mg/Ml IV 0 mcg/kg/min TITR WOLFGANG 0 mls/hr Titration Protocol 5 MCG/KG/MIN Insulin Glargine 20 units 04/22/21 07:58 04/22/21 09:00 Insulin Glargine 100 Units/Ml SUB-Q 20 units QAMDIAB WOLFGANG Administration Insulin Human Lispro 0 unit 04/16/21 15:00 04/22/21 06:18 Insulin Lispro 100 Unit/Ml SUB-Q 3 unit Q6HR WOLFGANG Administration Protocol Latanoprost 1 drops 04/17/21 18:00 04/21/21 17:57 Latanoprost 0.005% Ophth Soln 2.5 Ml OU 1 drops QPM WOLFGANG Administration Levothyroxine Sodium 25 mcg 04/19/21 06:00 04/22/21 06:18 Levothyroxine 25 Mcg Tab PO 25 mcg DAILY@0600 WOLFGANG Administration Methylprednisolone Sodium Succinate 30 mg 04/21/21 13:00 04/22/21 06:18 Methylprednisolone Sod Succinate 40 Mg/1 Ml Inj IV 04/24/21 12:59 30 mg Q6H WOLFGANG Administration Metoprolol Tartrate 25 mg 04/19/21 10:00 04/22/21 09:42 Metoprolol Tartrate 25 Mg Tab PO 25 mg BID WOLFGANG Administration Modafinil 100 mg 04/19/21 10:00 04/22/21 09:41 Modafinil 100 Mg Tab PO 100 mg QAM WOLFGANG Administration Multi-Ingred Cream/Lotion/Oil/Oint 1 applic 04/15/21 17:24 04/16/21 11:19 Mineral Oil/Petrolatum, White Ophth Oint 3.5 Gm OU 1 applic Q4HR PRN Administration Dry Eye(s) Pravastatin Sodium 20 mg 04/19/21 22:00 04/21/21 21:40 Pravastatin 20 Mg Tab PO 20 mg QHS WOLFGANG Administration Scopolamine 1 each 04/20/21 18:00 04/20/21 17:21 Scopolamine Transdermal Patch 72 Hr TD 1 each Q3D WOLFGANG Administration Simple Syrup 15 ml 04/16/21 12:52 Simple Syrup 15 Ml FEEDTUBE PRN PRN Hypoglycemia Simple Syrup 30 ml 04/16/21 12:52 Simple Syrup 15 Ml FEEDTUBE PRN PRN Hypoglycemia Sodium Bicarbonate 325 mg 04/16/21 12:52 Sodium Bicarbonate 325 Mg Tab FEEDTUBE PRN PRN For Clogged Feeding Tube Sodium Chloride 10 ml 04/15/21 22:00 04/22/21 09:45 Sodium Chloride 0.9% 10 Ml Flush Syringe IV 10 ml BID WOLFGANG Administration Sodium Chloride 10 ml 04/15/21 19:11 Sodium Chloride 0.9% 10 Ml Flush Syringe IV PRN PRN LINE FLUSH Timolol Maleate 1 drops 04/19/21 10:00 04/22/21 09:47 Timolol 0.5% Ophth Soln 5 Ml OU 1 drops QDAY WOLFGANG Administration
[2021-04-22] MEDS ORDERED: MAGNESIUM SULFATE 2 GM/50 ML BAG IV ONE (14:15)
--- NOTE | 2021-04-22 14:43 | Progress Note ---
Assessment and Plan Acute respiratory failure, on mechanical ventilatory support. Acute toxic metabolic encephalopathy Hypoglycemia ROJELIO Hyperkalemia Rhabdomyolysis Possible seizure activity DM II HTN CAD Obesity H/O breast cancer H/O TIA Leukocytosis Elevated serum TSH, possible hypothyroidism - growing PSAR, continue AB's per sensitivities - prn racemic epinephrine X 1 - complete Solumedrol 30 mg I.V. q6h X 8 doses re: ? laryngeal edema)- - continue BIPAP scheduled qhs with prn daytime use - continue scopolamine patch - continue Provigil - continue care as below otherwise; - continue to wean supplemental oxygen for target O2 sat's > 90% acutely - aspiration precautions - continue lung protective strategies - continue bronchodilators with pulmonary hygiene per RT - continue accuchecks with glycemic control per SSI (While critically ill target blood glucose of 140-180 mg/dL; avoid hypoglycemia) - avoid nephrotoxins, renally dose all medications - continue to avoid benzodiazepine's, reduce the possibility of delirium - follow clinically; trend fevers / WBC - prn analgesia per CPOT score - Maintenance of sleep-wake cycle, avoid delirium - continue enteral nutritional support at goal rate as tolerated - G.I. & VTE prophylaxis - PT/OT/ROM exercises - continue mobility protocols for pressure ulcer prophylaxis - Monitor hemodynamics closely - continue other care per attending / other consultants - discharge planning ongoing concurrently ..... doing better and will step down to IMCU .... Re-evaluate in am & prn CONDITION: CRITICAL PROGNOSIS: GUARDED CODE STATUS: FULL CODE I have spent ( >35 ) minutes with the patient w/ >50% of the time spent counseling and/or coordinating care for this patient. Counseling topics and/or how time was spent coordinating patient's care is outlined in the impression and plan above. Subjective Date of service: 04/22/21 Principal diagnosis: Ac. resp failure; AMS; Hypoglycemia; ROJELIO; Hyperkalemia; DM II Interval history: Patient is seen today for: Acute respiratory failure; AMS; Hypoglycemia; ROJELIO; Hyperkalemia; DM II; H/O breast cancer; Elevated serum TSH, possible hypothyroidism Seen and examined at bedside; 24hour events reviewed; nursing and respiratory care staff consulted; no adverse overnight events reported to me; resting peacefully in bed; breating less labored; lethargic; tolerated BIPAP overnight; secretions better; stridor better Objective Vital Signs - 12hr 05/23/21 05/23/21 05/23/21 03:00 03:14 03:30 Temperature 98.8 F Pulse Rate 83 85 Pulse Rate [ From Monitor] Respiratory 26 H 23 Rate Blood Pressure 201/94 199/74 O2 Sat by Pulse 99 98 Oximetry 04/22/21 04/22/21 04/22/21 04:00 04:30 05:00 Temperature Pulse Rate 93 H 79 91 H Pulse Rate [ 98 H From Monitor] Respiratory 18 19 21 Rate Blood Pressure 199/74 207/78 145/64 O2 Sat by Pulse 99 98 99 Oximetry 04/22/21 04/22/21 04/22/21 05:30 06:00 06:30 Temperature Pulse Rate 78 90 88 Pulse Rate [ From Monitor] Respiratory 22 26 H 23 Rate Blood Pressure 90/66 184/85 184/85 O2 Sat by Pulse 98 94 96 Oximetry 04/22/21 04/22/21 04/22/21 07:00 07:30 07:51 Temperature Pulse Rate 83 95 H Pulse Rate [ 87 From Monitor] Respiratory 24 24 22 Rate Blood Pressure 185/101 174/93 O2 Sat by Pulse 100 99 99 Oximetry 04/22/21 04/22/21 04/22/21 08:00 08:30 09:00 Temperature 98.4 F Pulse Rate 86 93 H 85 Pulse Rate [ From Monitor] Respiratory 23 22 23 Rate Blood Pressure 185/73 185/73 213/70 O2 Sat by Pulse 98 99 96 Oximetry 04/22/21 04/22/21 04/22/21 09:30 09:41 09:42 Temperature Pulse Rate 86 85 88 Pulse Rate [ From Monitor] Respiratory 22 Rate Blood Pressure 218/118 218/118 218/118 O2 Sat by Pulse 98 Oximetry 04/22/21 04/22/21 04/22/21 10:00 10:01 10:30 Temperature Pulse Rate 89 82 Pulse Rate [ From Monitor] Respiratory 19 21 Rate Blood Pressure 218/118 184/83 O2 Sat by Pulse 99 100 96 Oximetry 04/22/21 04/22/21 04/22/21 11:00 11:30 12:00 Temperature Pulse Rate 73 70 75 Pulse Rate [ 78 From Monitor] Respiratory 23 24 24 Rate Blood Pressure 156/66 152/55 152/55 O2 Sat by Pulse 97 94 96 Oximetry 04/22/21 04/22/2121 12:30 13:00 13:19 Temperature Pulse Rate 81 77 78 Pulse Rate [ From Monitor] Respiratory 24 23 Rate Blood Pressure 156/98 132/71 164/65 O2 Sat by Pulse 96 94 Oximetry 04/22/21 04/22/21 13:30 14:00 Temperature Pulse Rate 81 85 Pulse Rate [ From Monitor] Respiratory 27 H 24 Rate Blood Pressure 156/98 164/65 O2 Sat by Pulse 97 95 Oximetry Constitutional: no acute distress, other (elderly obese female with mildly increased respiratory effort at rest on MVS) Eyes: non-icteric ENT: oropharynx moist, other (mild stridorous sounds) Neck: supple, no lymphadenopathy, no JVD, other (large circumference) Effort: mildly labored Ascultation: Bilateral: diminished breath sounds, rhonchi (scant) Percussion: Bilateral: not dull Cardiovascular: regular rate and rhythm Gastrointestinal: normoactive bowel sounds, soft, non-tender, non-distended (protuberant), other (NGT to LIS) Integumentary: normal Extremities: no cyanosis, no edema, pulses normal, no ischemia or petechiae Neurologic: non-focal exam (grossly with intermittent spontaneous movement to extremities but ? mild posturing (decerebrate)), pupils equal and round, CN II- XII normal Psychiatric: mood appropriate, affect normal CBC and BMP: 04/22/21 08:00 04/22/21 08:00 ABG, PT/INR, D-dimer: ABG ABG pH 7.526 (7.320-7.450) H 04/20/21 02:56 POC ABG pCO2 35.7 mmHg (32.0-48.0) 04/20/21 02:56 POC ABG pO2 105.1 mmHg (83-108) 04/20/21 02:56 POC ABG HCO3 28.9 04/20/21 02:56 ABG O2 Saturation 98.2 (0-100) 04/20/21 02:56 PT/INR, D-dimer PT 12.2 Sec. (12.2-14.9) 04/15/21 17:20 INR 0.91 (0.87-1.13) 04/15/21 17:20 Abnormal lab findings: Abnormal Labs 04/15/21 04/15/21 04/15/21 17:20 17:20 17:20 WBC 11.2 H RBC Hct 43.0 H MCV RDW 15.3 H Plt Count Lymph % (Auto) 12.8 L Seg Neutrophils % 82.4 H Seg Neuts % (Manual) Lymphocytes % (Manual) Monocytes % (Manual) Seg Neutrophils # 9.3 H Seg Neutrophils # Man Lymphocytes # (Manual) Monocytes # (Manual) ABG pH POC ABG pCO2 POC ABG pO2 ABG Hemoglobin ABG Oxyhemoglobin ABG Sodium ABG Potassium ABG Chloride ABG Glucose Carboxyhemoglobin Sodium 129 L Potassium 7.1 H* Chloride 91.9 L BUN 35 H Creatinine 2.8 H Glucose POC Glucose Calcium Phosphorus Magnesium AST 69 H Total Creatine Kinase 1000 H CK-MB (CK-2) Troponin T Albumin HDL Cholesterol TSH Free T3 Index Arterial Blood Glucose Arterial Blood Ionized Calcium Urine pH Urine WBC (Auto) Urine Creatinine Acetaminophen 04/15/21 04/15/21 04/15/21 17:20 17:20 20:49 WBC RBC Hct MCV RDW Plt Count Lymph % (Auto) Seg Neutrophils % Seg Neuts % (Manual) Lymphocytes % (Manual) Monocytes % (Manual) Seg Neutrophils # Seg Neutrophils # Man Lymphocytes # (Manual) Monocytes # (Manual) ABG pH 7.557 H POC ABG pCO2 30.0 L POC ABG pO2 493.3 H ABG Hemoglobin ABG Oxyhemoglobin 99.0 H ABG Sodium 131.5 L ABG Potassium 4.7 H ABG Chloride 94.0 L ABG Glucose 218 H Carboxyhemoglobin Sodium Potassium Chloride BUN Creatinine Glucose POC Glucose Calcium Phosphorus Magnesium AST Total Creatine Kinase CK-MB (CK-2) Troponin T Albumin HDL Cholesterol TSH 14.190 H Free T3 Index Arterial Blood Glucose 218 H Arterial Blood Ionized Calcium 5.4 H Urine pH Urine WBC (Auto) Urine Creatinine Acetaminophen 5.0 L 04/15/21 04/15/21 04/16/21 21:23 23:15 00:09 WBC RBC Hct MCV RDW Plt Count Lymph % (Auto) Seg Neutrophils % Seg Neuts % (Manual) Lymphocytes % (Manual) Monocytes % (Manual) Seg Neutrophils # Seg Neutrophils # Man Lymphocytes # (Manual) Monocytes # (Manual) ABG pH POC ABG pCO2 POC ABG pO2 ABG Hemoglobin ABG Oxyhemoglobin ABG Sodium ABG Potassium ABG Chloride ABG Glucose Carboxyhemoglobin Sodium Potassium Chloride BUN Creatinine Glucose POC Glucose 173 H 207 H Calcium Phosphorus Magnesium AST Total Creatine Kinase CK-MB (CK-2) Troponin T Albumin HDL Cholesterol TSH Free T3 Index Arterial Blood Glucose Arterial Blood Ionized Calcium Urine pH 9.0 H Urine WBC (Auto) Urine Creatinine Acetaminophen 04/16/21 04/16/21 04/16/21 00:12 00:19 03:43 WBC RBC Hct MCV RDW Plt Count Lymph % (Auto) Seg Neutrophils % Seg Neuts % (Manual) Lymphocytes % (Manual) Monocytes % (Manual) Seg Neutrophils # Seg Neutrophils # Man Lymphocytes # (Manual) Monocytes # (Manual) ABG pH 7.461 H POC ABG pCO2 POC ABG pO2 ABG Hemoglobin ABG Oxyhemoglobin ABG Sodium 126.8 L ABG Potassium 5.4 H ABG Chloride 90.0 L ABG Glucose 325 H Carboxyhemoglobin Sodium Potassium 6.7 H* Chloride BUN Creatinine Glucose POC Glucose Calcium Phosphorus Magnesium AST Total Creatine Kinase CK-MB (CK-2) Troponin T Albumin HDL Cholesterol TSH Free T3 Index Arterial Blood Glucose 325 H Arterial Blood Ionized Calcium Urine pH Urine WBC (Auto) Urine Creatinine 24.4 H Acetaminophen 04/16/21 04/16/21 04/16/21 03:55 05:02 05:02 WBC 21.2 H RBC Hct 43.4 H MCV 98 H RDW Plt Count Lymph % (Auto) Seg Neutrophils % Seg Neuts % (Manual) 84.0 H Lymphocytes % (Manual) 2.0 L Monocytes % (Manual) 10.0 H Seg Neutrophils # Seg Neutrophils # Man 17.8 H Lymphocytes # (Manual) 0.4 L Monocytes # (Manual) 2.1 H ABG pH POC ABG pCO2 POC ABG pO2 ABG Hemoglobin ABG Oxyhemoglobin ABG Sodium ABG Potassium ABG Chloride ABG Glucose Carboxyhemoglobin Sodium 131 L Potassium 5.9 H Chloride 88.7 L BUN 34 H Creatinine 2.9 H Glucose 249 H POC Glucose 391 H Calcium 10.4 H Phosphorus Magnesium AST 65 H Total Creatine Kinase CK-MB (CK-2) Troponin T Albumin 3.8 L HDL Cholesterol TSH Free T3 Index Arterial Blood Glucose Arterial Blood Ionized Calcium Urine pH Urine WBC (Auto) Urine Creatinine Acetaminophen 04/16/21 04/16/21 04/16/21 11:34 16:09 18:15 WBC RBC Hct MCV RDW Plt Count Lymph % (Auto) Seg Neutrophils % Seg Neuts % (Manual) Lymphocytes % (Manual) Monocytes % (Manual) Seg Neutrophils # Seg Neutrophils # Man Lymphocytes # (Manual) Monocytes # (Manual) ABG pH POC ABG pCO2 POC ABG pO2 ABG Hemoglobin ABG Oxyhemoglobin ABG Sodium ABG Potassium ABG Chloride ABG Glucose Carboxyhemoglobin Sodium Potassium Chloride BUN Creatinine Glucose POC Glucose 382 H 300 H 287 H Calcium Phosphorus Magnesium AST Total Creatine Kinase CK-MB (CK-2) Troponin T Albumin HDL Cholesterol TSH Free T3 Index Arterial Blood Glucose Arterial Blood Ionized Calcium Urine pH Urine WBC (Auto) Urine Creatinine Acetaminophen 04/16/21 04/16/21 04/16/21 19:01 19:01 19:01 WBC RBC Hct MCV RDW Plt Count Lymph % (Auto) Seg Neutrophils % Seg Neuts % (Manual) Lymphocytes % (Manual) Monocytes % (Manual) Seg Neutrophils # Seg Neutrophils # Man Lymphocytes # (Manual) Monocytes # (Manual) ABG pH POC ABG pCO2 POC ABG pO2 ABG Hemoglobin ABG Oxyhemoglobin ABG Sodium ABG Potassium ABG Chloride ABG Glucose Carboxyhemoglobin Sodium 125 L Potassium 5.5 H 5.6 H Chloride 84.5 L BUN 37 H Creatinine 3.5 H Glucose 236 H POC Glucose Calcium Phosphorus Magnesium AST Total Creatine Kinase CK-MB (CK-2) Troponin T Albumin HDL Cholesterol TSH Free T3 Index 1.1 L Arterial Blood Glucose Arterial Blood Ionized Calcium Urine pH Urine WBC (Auto) Urine Creatinine Acetaminophen 04/16/21 04/17/21 04/17/21 23:48 03:09 05:04 WBC RBC Hct MCV RDW Plt Count Lymph % (Auto) Seg Neutrophils % Seg Neuts % (Manual) Lymphocytes % (Manual) Monocytes % (Manual) Seg Neutrophils # Seg Neutrophils # Man Lymphocytes # (Manual) Monocytes # (Manual) ABG pH 7.518 H POC ABG pCO2 POC ABG pO2 ABG Hemoglobin ABG Oxyhemoglobin ABG Sodium 126.4 L ABG Potassium ABG Chloride 89.0 L ABG Glucose 200 H Carboxyhemoglobin Sodium 129 L Potassium Chloride 86.1 L BUN 39 H Creatinine 3.5 H Glucose 202 H POC Glucose 243 H Calcium Phosphorus Magnesium AST Total Creatine Kinase 750 H CK-MB (CK-2) Troponin T 0.119 H* D Albumin HDL Cholesterol 61 H TSH Free T3 Index Arterial Blood Glucose 200 H Arterial Blood Ionized Calcium 4.4 L Urine pH Urine WBC (Auto) Urine Creatinine Acetaminophen 04/17/21 04/17/21 04/17/21 06:14 11:55 15:35 WBC RBC Hct MCV RDW Plt Count Lymph % (Auto) Seg Neutrophils % Seg Neuts % (Manual) Lymphocytes % (Manual) Monocytes % (Manual) Seg Neutrophils # Seg Neutrophils # Man Lymphocytes # (Manual) Monocytes # (Manual) ABG pH POC ABG pCO2 POC ABG pO2 ABG Hemoglobin ABG Oxyhemoglobin ABG Sodium ABG Potassium ABG Chloride ABG Glucose Carboxyhemoglobin Sodium Potassium Chloride BUN Creatinine Glucose POC Glucose 208 H 276 H Calcium Phosphorus Magnesium AST Total Creatine Kinase 615 H CK-MB (CK-2) 9.1 H Troponin T Albumin HDL Cholesterol TSH Free T3 Index Arterial Blood Glucose Arterial Blood Ionized Calcium Urine pH Urine WBC (Auto) Urine Creatinine Acetaminophen 04/17/21 04/17/21 04/18/21 15:35 17:07 00:01 WBC 17.1 H RBC Hct MCV RDW Plt Count Lymph % (Auto) Seg Neutrophils % Seg Neuts % (Manual) Lymphocytes % (Manual) Monocytes % (Manual) Seg Neutrophils # Seg Neutrophils # Man Lymphocytes # (Manual) Monocytes # (Manual) ABG pH POC ABG pCO2 POC ABG pO2 ABG Hemoglobin ABG Oxyhemoglobin ABG Sodium ABG Potassium ABG Chloride ABG Glucose Carboxyhemoglobin Sodium Potassium Chloride BUN Creatinine Glucose POC Glucose 148 H 192 H Calcium Phosphorus Magnesium AST Total Creatine Kinase CK-MB (CK-2) Troponin T Albumin HDL Cholesterol TSH Free T3 Index Arterial Blood Glucose Arterial Blood Ionized Calcium Urine pH Urine WBC (Auto) Urine Creatinine Acetaminophen 04/18/21 04/18/21 04/18/21 03:00 05:24 05:34 WBC 15.3 H RBC 3.34 L Hct MCV RDW 15.3 H Plt Count Lymph % (Auto) Seg Neutrophils % Seg Neuts % (Manual) Lymphocytes % (Manual) Monocytes % (Manual) Seg Neutrophils # Seg Neutrophils # Man Lymphocytes # (Manual) Monocytes # (Manual) ABG pH 7.497 H POC ABG pCO2 POC ABG pO2 77.7 L ABG Hemoglobin 10.4 L ABG Oxyhemoglobin ABG Sodium 129.7 L ABG Potassium 2.8 L ABG Chloride 92.0 L ABG Glucose 134 H Carboxyhemoglobin 0.3 L Sodium Potassium Chloride BUN Creatinine Glucose POC Glucose 162 H Calcium Phosphorus Magnesium AST Total Creatine Kinase CK-MB (CK-2) Troponin T Albumin HDL Cholesterol TSH Free T3 Index Arterial Blood Glucose 134 H Arterial Blood Ionized Calcium 4.3 L Urine pH Urine WBC (Auto) Urine Creatinine Acetaminophen 04/18/21 04/18/21 04/18/21 05:34 05:43 09:11 WBC RBC Hct MCV RDW Plt Count Lymph % (Auto) Seg Neutrophils % Seg Neuts % (Manual) Lymphocytes % (Manual) Monocytes % (Manual) Seg Neutrophils # Seg Neutrophils # Man Lymphocytes # (Manual) Monocytes # (Manual) ABG pH POC ABG pCO2 POC ABG pO2 ABG Hemoglobin ABG Oxyhemoglobin ABG Sodium ABG Potassium ABG Chloride ABG Glucose Carboxyhemoglobin Sodium 134 L Potassium 3.0 L D Chloride 93.5 L BUN 42 H Creatinine 3.1 H Glucose 152 H POC Glucose Calcium Phosphorus Magnesium 1.40 L AST Total Creatine Kinase 427 H CK-MB (CK-2) Troponin T 0.081 H D Albumin HDL Cholesterol TSH Free T3 Index Arterial Blood Glucose Arterial Blood Ionized Calcium Urine pH Urine WBC (Auto) 34.0 H Urine Creatinine Acetaminophen 04/18/21 04/18/21 04/18/21 11:34 17:24 23:18 WBC RBC Hct MCV RDW Plt Count Lymph % (Auto) Seg Neutrophils % Seg Neuts % (Manual) Lymphocytes % (Manual) Monocytes % (Manual) Seg Neutrophils # Seg Neutrophils # Man Lymphocytes # (Manual) Monocytes # (Manual) ABG pH POC ABG pCO2 POC ABG pO2 ABG Hemoglobin ABG Oxyhemoglobin ABG Sodium ABG Potassium ABG Chloride ABG Glucose Carboxyhemoglobin Sodium Potassium Chloride BUN Creatinine Glucose POC Glucose 170 H 151 H 182 H Calcium Phosphorus Magnesium AST Total Creatine Kinase CK-MB (CK-2) Troponin T Albumin HDL Cholesterol TSH Free T3 Index Arterial Blood Glucose Arterial Blood Ionized Calcium Urine pH Urine WBC (Auto) Urine Creatinine Acetaminophen 04/19/21 04/19/21 04/19/21 04:09 05:19 07:30 WBC 14.8 H RBC 3.20 L Hct MCV 98 H RDW Plt Count 137 L Lymph % (Auto) Seg Neutrophils % Seg Neuts % (Manual) Lymphocytes % (Manual) Monocytes % (Manual) Seg Neutrophils # Seg Neutrophils # Man Lymphocytes # (Manual) Monocytes # (Manual) ABG pH 7.476 H POC ABG pCO2 POC ABG pO2 79.4 L ABG Hemoglobin 10.7 L ABG Oxyhemoglobin ABG Sodium 131.2 L ABG Potassium 2.8 L ABG Chloride 94.0 L ABG Glucose 209 H Carboxyhemoglobin 0.3 L Sodium Potassium Chloride BUN Creatinine Glucose POC Glucose 204 H Calcium Phosphorus Magnesium AST Total Creatine Kinase CK-MB (CK-2) Troponin T Albumin HDL Cholesterol TSH Free T3 Index Arterial Blood Glucose 209 H Arterial Blood Ionized Calcium Urine pH Urine WBC (Auto) Urine Creatinine Acetaminophen 04/19/21 04/19/21 04/19/21 07:30 10:35 11:48 WBC RBC Hct MCV RDW Plt Count Lymph % (Auto) Seg Neutrophils % Seg Neuts % (Manual) Lymphocytes % (Manual) Monocytes % (Manual) Seg Neutrophils # Seg Neutrophils # Man Lymphocytes # (Manual) Monocytes # (Manual) ABG pH 7.464 H POC ABG pCO2 POC ABG pO2 81.8 L ABG Hemoglobin 10.8 L ABG Oxyhemoglobin ABG Sodium 129.6 L ABG Potassium ABG Chloride 95.0 L ABG Glucose 238 H Carboxyhemoglobin Sodium 133 L Potassium 2.8 L* Chloride 94.4 L BUN 43 H Creatinine 2.7 H Glucose 255 H POC Glucose 208 H Calcium 8.0 L Phosphorus Magnesium AST Total Creatine Kinase CK-MB (CK-2) Troponin T 0.060 H D Albumin HDL Cholesterol TSH Free T3 Index Arterial Blood Glucose 238 H Arterial Blood Ionized Calcium Urine pH Urine WBC (Auto) Urine Creatinine Acetaminophen 04/19/21 04/19/21 04/20/21 20:40 23:04 02:56 WBC RBC Hct MCV RDW Plt Count Lymph % (Auto) Seg Neutrophils % Seg Neuts % (Manual) Lymphocytes % (Manual) Monocytes % (Manual) Seg Neutrophils # Seg Neutrophils # Man Lymphocytes # (Manual) Monocytes # (Manual) ABG pH 7.526 H POC ABG pCO2 POC ABG pO2 ABG Hemoglobin 10.5 L ABG Oxyhemoglobin ABG Sodium 133.5 L ABG Potassium ABG Chloride ABG Glucose 157 H Carboxyhemoglobin 0.3 L Sodium Potassium 3.4 L D Chloride BUN Creatinine Glucose POC Glucose 173 H Calcium Phosphorus Magnesium AST Total Creatine Kinase CK-MB (CK-2) Troponin T Albumin HDL Cholesterol TSH Free T3 Index Arterial Blood Glucose 157 H Arterial Blood Ionized Calcium Urine pH Urine WBC (Auto) Urine Creatinine Acetaminophen 04/20/21 04/20/21 04/20/21 03:32 03:32 03:46 WBC 13.2 H RBC 3.18 L Hct MCV RDW Plt Count Lymph % (Auto) Seg Neutrophils % Seg Neuts % (Manual) Lymphocytes % (Manual) Monocytes % (Manual) Seg Neutrophils # Seg Neutrophils # Man Lymphocytes # (Manual) Monocytes # (Manual) ABG pH POC ABG pCO2 POC ABG pO2 ABG Hemoglobin ABG Oxyhemoglobin ABG Sodium ABG Potassium ABG Chloride ABG Glucose Carboxyhemoglobin Sodium 135 L Potassium Chloride 96.7 L BUN 40 H Creatinine 2.3 H Glucose 142 H POC Glucose Calcium Phosphorus 2.10 L Magnesium AST Total Creatine Kinase CK-MB (CK-2) Troponin T 0.065 H Albumin HDL Cholesterol TSH Free T3 Index Arterial Blood Glucose Arterial Blood Ionized Calcium Urine pH Urine WBC (Auto) Urine Creatinine Acetaminophen 04/20/21 04/20/21 04/20/21 05:42 11:50 17:09 WBC RBC Hct MCV RDW Plt Count Lymph % (Auto) Seg Neutrophils % Seg Neuts % (Manual) Lymphocytes % (Manual) Monocytes % (Manual) Seg Neutrophils # Seg Neutrophils # Man Lymphocytes # (Manual) Monocytes # (Manual) ABG pH POC ABG pCO2 POC ABG pO2 ABG Hemoglobin ABG Oxyhemoglobin ABG Sodium ABG Potassium ABG Chloride ABG Glucose Carboxyhemoglobin Sodium Potassium Chloride BUN Creatinine Glucose POC Glucose 160 H 194 H 153 H Calcium Phosphorus Magnesium AST Total Creatine Kinase CK-MB (CK-2) Troponin T Albumin HDL Cholesterol TSH Free T3 Index Arterial Blood Glucose Arterial Blood Ionized Calcium Urine pH Urine WBC (Auto) Urine Creatinine Acetaminophen 04/20/21 04/21/21 04/21/21 23:18 05:26 05:51 WBC RBC 3.20 L Hct MCV 99 H RDW 15.3 H Plt Count Lymph % (Auto) Seg Neutrophils % Seg Neuts % (Manual) Lymphocytes % (Manual) Monocytes % (Manual) Seg Neutrophils # Seg Neutrophils # Man Lymphocytes # (Manual) Monocytes # (Manual) ABG pH POC ABG pCO2 POC ABG pO2 ABG Hemoglobin ABG Oxyhemoglobin ABG Sodium ABG Potassium ABG Chloride ABG Glucose Carboxyhemoglobin Sodium Potassium Chloride BUN Creatinine Glucose POC Glucose 162 H 164 H Calcium Phosphorus Magnesium AST Total Creatine Kinase CK-MB (CK-2) Troponin T Albumin HDL Cholesterol TSH Free T3 Index Arterial Blood Glucose Arterial Blood Ionized Calcium Urine pH Urine WBC (Auto) Urine Creatinine Acetaminophen 04/21/21 04/21/21 04/21/21 05:51 12:12 17:13 WBC RBC Hct MCV RDW Plt Count Lymph % (Auto) Seg Neutrophils % Seg Neuts % (Manual) Lymphocytes % (Manual) Monocytes % (Manual) Seg Neutrophils # Seg Neutrophils # Man Lymphocytes # (Manual) Monocytes # (Manual) ABG pH POC ABG pCO2 POC ABG pO2 ABG Hemoglobin ABG Oxyhemoglobin ABG Sodium ABG Potassium ABG Chloride ABG Glucose Carboxyhemoglobin Sodium Potassium Chloride 96.6 L BUN 42 H Creatinine 2.1 H Glucose 171 H POC Glucose 167 H 178 H Calcium Phosphorus Magnesium AST Total Creatine Kinase CK-MB (CK-2) Troponin T Albumin HDL Cholesterol TSH Free T3 Index Arterial Blood Glucose Arterial Blood Ionized Calcium Urine pH Urine WBC (Auto) Urine Creatinine Acetaminophen 04/21/21 04/22/21 04/22/21 23:42 05:29 08:00 WBC 12.9 H RBC Hct MCV RDW Plt Count Lymph % (Auto) Seg Neutrophils % Seg Neuts % (Manual) Lymphocytes % (Manual) Monocytes % (Manual) Seg Neutrophils # Seg Neutrophils # Man Lymphocytes # (Manual) Monocytes # (Manual) ABG pH POC ABG pCO2 POC ABG pO2 ABG Hemoglobin ABG Oxyhemoglobin ABG Sodium ABG Potassium ABG Chloride ABG Glucose Carboxyhemoglobin Sodium Potassium Chloride BUN Creatinine Glucose POC Glucose 253 H 208 H Calcium Phosphorus Magnesium AST Total Creatine Kinase CK-MB (CK-2) Troponin T Albumin HDL Cholesterol TSH Free T3 Index Arterial Blood Glucose Arterial Blood Ionized Calcium Urine pH Urine WBC (Auto) Urine Creatinine Acetaminophen 04/22/21 04/22/21 08:00 12:06 WBC RBC Hct MCV RDW Plt Count Lymph % (Auto) Seg Neutrophils % Seg Neuts % (Manual) Lymphocytes % (Manual) Monocytes % (Manual) Seg Neutrophils # Seg Neutrophils # Man Lymphocytes # (Manual) Monocytes # (Manual) ABG pH POC ABG pCO2 POC ABG pO2 ABG Hemoglobin ABG Oxyhemoglobin ABG Sodium ABG Potassium ABG Chloride ABG Glucose Carboxyhemoglobin Sodium Potassium Chloride BUN 47 H Creatinine 1.9 H Glucose 252 H POC Glucose 298 H Calcium Phosphorus Magnesium AST Total Creatine Kinase CK-MB (CK-2) Troponin T Albumin HDL Cholesterol TSH Free T3 Index Arterial Blood Glucose Arterial Blood Ionized Calcium Urine pH Urine WBC (Auto) Urine Creatinine Acetaminophen Allied health notes reviewed: nursing
--- NOTE | 2021-04-22 15:44 | Event Note ---
I spoke to the patient's nephew Carlos Romero at [phone]. I informed him of the removal of the Kerr catheter, kidney function tests trending downwards and CCM decision to transfer to [facility]. He asked for a call when she is transferred to [facility]. And I informed him of his the visitation hours Friday through Friday 2 PM to 4 PM.
[2021-04-22] MEDS: LATANOPROST 0.005% OPHTH SOLN 2.5 ML OU SCH (18:22)
[2021-04-22] MEDS: PRAVASTATIN 20 MG TAB PO SCH (21:27)
[2021-04-23] MEDS: methylPREDNISolone Sod Succinate 40 MG/1 ML INJ IV SCH ×4 (00:50→18:00)
[2021-04-23] MEDS: hydrALAZINE 20 MG/1 ML INJ IV PRN ×2 (05:15→23:53)
[2021-04-23] MEDS: LEVOTHYROXINE 25 MCG TAB PO SCH (05:15)
[2021-04-23] MEDS: INSULIN LISPRO 100 UNIT/ML SUB-Q SCH ×4 (05:16→23:54)
[2021-04-23 07:40] LABS: Calcium 10.1 mg/dL (8.4-10.2)
[2021-04-23] MEDS: SCOPOLAMINE TRANSDERMAL PATCH 72 HR TD SCH (10:04)
[2021-04-23] MEDS: amLODIPine 5 MG TAB PO SCH (10:05)
[2021-04-23] MEDS: MODAFINIL 100 MG TAB PO SCH (10:05)
[2021-04-23] MEDS: FAMOTIDINE 20 MG TAB PO SCH (10:05)
[2021-04-23] MEDS: INSULIN GLARGINE 100 UNITS/ML SUB-Q SCH (10:05)
[2021-04-23] MEDS: METOPROLOL TARTRATE 25 MG TAB PO SCH ×2 (10:05→21:12)
[2021-04-23] MEDS: HEPARIN 5,000 UNIT/1 ML VIAL SUB-Q SCH ×2 (10:05→21:11)
[2021-04-23] MEDS: hydrALAZINE 100 MG TAB PO SCH ×3 (10:05→21:12)
[2021-04-23] MEDS: TIMOLOL 0.5% OPHTH SOLN 5 ML OU SCH (10:07)
[2021-04-23] MEDS: BRIMONIDINE 0.15% OPHTH SOLN OU SCH ×2 (10:08→21:07)
--- NOTE | 2021-04-23 10:34 | Progress Note ---
Assessment and Plan Assessment and plan: This is a 80-year-old female with hypertension, diabetes mellitus, CO, breast cancer s/p double mastectomy, and a TIA who presented with hypoglycemia and altered mental status on 04/15 via EMS. Per EMS patient was unresponsive on their arrival and her blood glucose was 38 and she received 1 amp of dextrose patient continued to be unresponsive and only moaned with her eyes deviating to the left. Work-up in the emergency department revealed SIRS, symptomatic bradycardia, acute metabolic encephalopathy, acute hypoxic respiratory failure, elevated TSH, hyperglycemia, hyponatremia, hyperkalemia, acute kidney injury with ATN, and rhabdomyolysis 04/16: Neurology consulted, COVID-19 PCR negative, D10 drip decreased and eventually discontinued by [facility] and started on D5W for 1 L. Hydralazine as needed. Patient had hyper kalemia today and was treated with D50, insulin and Kayexalate. This time examination patient is on assist control tidal volume 450, rate of 16, PEEP of 6 and 25% FiO2. 04/17: Patient started on low-dose beta-angel per cardiology, CPAP trial again per [facility], BUN/creatinine holding steady and hypochloremia/hyponatremia slightly improved and hypokalemia has resolved. This morning a KUB was obtained which was concerning for ileus versus mechanical obstruction and surgery was c onsulted. Patient was made n.p.o. and NG tube placed to wall suction. Patient was given suppository. Per RN patient did not have a BM even though she was given Kayexalate yesterday. Will obtain a KUB in the a.m. Neurology was consulted yesterday and will await further recommendations. Nephew updated at bedside today, Carlos Romero. -[facility], cardiology, nephrology, neurology, nutrition consulted, appreciate recommendations -04/15 CT head shows age-related atrophic change, chronic small vessel ischemic change, no CT evidence of acute large vessel territory ischemic injury, hemorrhage or mass -04/15 echocardiogram shows left ventricular systolic function borderline, LVEF 45 to 50%, mild concentric LVH, paradoxical septal motion consistent with left bundle branch block with no clot identified in the left ventricle, calcified aortic valve without regurgitation or stenosis, trace MR, trace TR, no NV, RVSP is 24 mmHg -04/17 KUB shows gas-filled and dilated loops of small bowel noted over the upper abdomen largest measuring 5 cm concerning for ileus versus mechanical obstruction -04/18 KUB shows interval resolution of previously seen small bowel dilation -04/18 EEG pending 04/18: Neurology has ordered EEG/MRI B, CCM continues to wean MV. Persistent low grade temperature so we will obtain BCx2/UA. Patient has improving leukocytosis, hyponatremia, renal function studies and hypochloremia. She has hypokalemia today which is being repleted. Surgery has signed off today and has okayed r esumption of TF. [facility] will trial CPAP for longer today and plans to attempt extubation in AM. Family has requested transfer to [place] and Dr. Gordon will attempt to contact transfer center. I updated her nephew, Carlos Romero over the phone today abouyt current events and update on transfer ([place] will conduct a utilization review) 04/19: This morning patient is on CPAP trial at the time of examination, noted to be hypertensive and metoprolol increased to home dose, started on synthroid by [facility], lantus started re hyperglycemia, MRI completed with no acute findings. Severe hypokalemia (repleted and Mg pending). [facility] will contact CPAP trial again today with possible trial extubation tomorrow. 04/19 MRI brain shows no restricted diffusion, no hemorrhage,, no radiation, findings consistent with chronic microvascular disease, small bilateral mastoid effusions, mucosal thickening throughout the paranasal sinuses seen within the maxillary sinuses 04/20: Patient's leukocytosis and kidney function tests continue to improve. Patient is hypertensive overnight we will restart home hydralazine. [facility] plans to extubate patient today. Family is attempting to transfer to another facility. EEG pending, RT will atmept to contact home service technician. Urine culture grew gram negative rods. Increase in lantus 04/21: Increase in Lantus, repleted phos. Patient has started this afternoon and was given racemic epinephrine and started on steroids. Patient will have BiPAP as needed. We will recheck BMP in the a.m. renal function studies continues to decrease. Patient has been hypertensive on evaluation regimen has been changed. 04/22: Lantus increased for hyperglycemia and add amlodipine for better BP contr ol. Patient is on steroids. OT suctioned by RN with catheter in oral care kit and received copious amounts of secretions. Cr continues to decrease. Culture grew Pseudomonas and was changed in accordance to sensitivity. Kerr removed today after clearance from nephrology. 04/23: MRI of the brain was done and unremarkable. Will obtain reconsult to nephrology for further assistance as patient remains in profound encephalopathy despite improvement of blood sugar. Will repeat chest x-ray as patient does have significant congestion physical exam. Tube feeds still ongoing. Continue aspiration precautions. Continue antibiotics when completed for Pseudomonas management Acute metabolic encephalopathy-persist Acute hypoxic respiratory failure (extubated 04/20) First-degree heart block Resolved ileus versus mechanical obstruction Acute kidney injury UTI, Pseudomonas Possible seizure activity Elevated TSH Mild rhabdomyolysis Hypertension Diabetes mellitus with hyperglycemia on admission CAD Chronic illness debilitymyopathy Obesity S/p antibiotic therapy x1, currently on abd for UTI -S/p D10 and D5W gtt, on TF -Accu-Cheks every 6, SSI, long acting insulin -S/p IV calcium gluconate, regular insulin, D50 -S/p transcutaneous pacing, intermittent demand pacer in place -Renal ultrasound pending -Blood pressure monitoring per protocol -IV hydralazine as needed -Avoid ACEi/ARB in setting of ROJELIO -Avoid AV arron blocking agents -Avoid nephrotoxic agents and renally dose medications -BB, add home antihtn regimen as needed -Iv abx -TSH 14.1, T4 4.1, T3 pending-started on levothyroxine -Provegil -s/p racemic epinephrine x2 -Steroids -BiPAP as needed -Trend CBC, BMP, CK DVT/GI prophylaxis: Heparin subcu, PPI, SCDs to bilateral lower extremities while in bed Disposition: IMCU History Interval history: This is a 80-year-old female with HTN, DM, CO, breast CA s/p double mastectomy, TIA who presented with hypoglycemia, AMS who was admitted with SIRS, symptomatic bradycardia, acute metabolic encephalopathy, acute hypoxic respiratory failure, elevated TSH, hyperglycemia, hyponatremia, hypokalemia, ROJELIO and rhabdomyolysis Patient seen and examined this morning very lethargic with congested sounds NG tube in place. Hospitalist Physical - Physical exam Narrative exam: General appearance: Present: no acute distress, other lethargic - EENT Eyes: Present: PERRL, EOM intact, NG tube in place ENT: poor dentition - Neck Neck: Present: normal ROM - Respiratory Respiratory effort: normal Respiratory: bilateral: CTA, congested - Cardiovascular Rhythm: regular Heart Sounds: Present: S1 & S2. Absent: systolic murmur, diastolic murmur - Extremities Extremities: no ischemia, pulses intact, pulses symmetrical, normal temperature, normal color Extremity abnormal: edema Peripheral Pulses: within normal limits - Abdominal General gastrointestinal: soft, non-tender, non-distended - Integumentary Integumentary: Present: See full documentation per nursing skin assessment. Otherwise appropriate for age - Psychiatric Psychiatric: Unable to fully examine - Neurologic Neurologic: moves all extremities - Allied Health Allied health notes reviewed: nursing, RT, social work - Constitutional Vitals: Temp Pulse Resp BP Pulse Ox 98.2 F 85 22 165/78 98 04/23/21 08:00 04/23/21 10:05 04/23/21 10:01 04/23/21 10:05 04/23/21 10:01 General appearance: Present: no acute distress, other (sedated) HEART Score - HEART Score Troponin: Troponin T 0.065 ng/mL (0.00-0.029) H 04/20/21 03:32 Results - Labs CBC & Chem 7: 04/22/21 08:00 04/24/21 05:23 Labs: Laboratory Last Values WBC 12.9 K/mm3 (4.5-11.0) H 04/22/21 08:00 RBC 3.80 M/mm3 (3.65-5.03) 04/22/21 08:00 Hgb 11.6 gm/dl (10.1-14.3) 04/22/21 08:00 Hct 36.2 % (30.3-42.9) 04/22/21 08:00 MCV 95 fl (79-97) 04/22/21 08:00 MCH 31 pg (28-32) 04/22/21 08:00 MCHC 32 % (30-34) 04/22/21 08:00 RDW 14.8 % (13.2-15.2) 04/22/21 08:00 Plt Count 257 K/mm3 (140-440) 04/22/21 08:00 Lymph % (Auto) 12.8 % (13.4-35.0) L 04/15/21 17:20 [place] % (Auto) 4.1 % (0.0-7.3) 04/15/21 17:20 Eos % (Auto) 0.3 % (0.0-4.3) 04/15/21 17:20 Baso % (Auto) 0.4 % (0.0-1.8) 04/15/21 17:20 Lymph # (Auto) 1.4 K/mm3 (1.2-5.4) 04/15/21 17:20 [place] # (Auto) 0.5 K/mm3 (0.0-0.8) 04/15/21 17:20 Eos # (Auto) 0.0 K/mm3 (0.0-0.4) 04/15/21 17:20 Baso # (Auto) 0.0 K/mm3 (0.0-0.1) 04/15/21 17:20 Add Manual Diff Complete 04/16/21 05:02 Total Counted 100 04/16/21 05:02 Seg Neutrophils % 82.4 % (40.0-70.0) H 04/15/21 17:20 Seg Neuts % (Manual) 84.0 % (40.0-70.0) H 04/16/21 05:02 Band Neutrophils % 3.0 % 04/16/21 05:02 Lymphocytes % (Manual) 2.0 % (13.4-35.0) L 04/16/21 05:02 Monocytes % (Manual) 10.0 % (0.0-7.3) H 04/16/21 05:02 Metamyelocytes % 1.0 % 04/16/21 05:02 Nucleated RBC % Not Reportable 04/16/21 05:02 Seg Neutrophils # 9.3 K/mm3 (1.8-7.7) H 04/15/21 17:20 Seg Neutrophils # Man 17.8 K/mm3 (1.8-7.7) H 04/16/21 05:02 Band Neutrophils # 0.6 K/mm3 04/16/21 05:02 Lymphocytes # (Manual) 0.4 K/mm3 (1.2-5.4) L 04/16/21 05:02 Abs React Lymphs (Man) 0.0 K/mm3 04/16/21 05:02 Monocytes # (Manual) 2.1 K/mm3 (0.0-0.8) H 04/16/21 05:02 Eosinophils # (Manual) 0.0 K/mm3 (0.0-0.4) 04/16/21 05:02 Basophils # (Manual) 0.0 K/mm3 (0.0-0.1) 04/16/21 05:02 Metamyelocytes # 0.2 K/mm3 04/16/21 05:02 Myelocytes # 0.0 K/mm3 04/16/21 05:02 Promyelocytes # 0.0 K/mm3 04/16/21 05:02 Blast Cells # 0.0 K/mm3 04/16/21 05:02 WBC Morphology Not Reportable 04/16/21 05:02 Hypersegmented Neuts Not Reportable 04/16/21 05:02 Hyposegmented Neuts Not Reportable 04/16/21 05:02 Hypogranular Neuts Not Reportable 04/16/21 05:02 Smudge Cells Not Reportable 04/16/21 05:02 Toxic Granulation Not Reportable 04/16/21 05:02 Toxic Vacuolation Not Reportable 04/16/21 05:02 Dohle Bodies Not Reportable 04/16/21 05:02 Pelger-Huet Anomaly Not Reportable 04/16/21 05:02 Pteerson Rods Not Reportable 04/16/21 05:02 Platelet Estimate Consistent w auto 04/16/21 05:02 Clumped Platelets Not Reportable 04/16/21 05:02 Plt Clumps, EDTA Not Reportable 04/16/21 05:02 Large Platelets Not Reportable 04/16/21 05:02 Giant Platelets Not Reportable 04/16/21 05:02 Platelet Satelliting Not Reportable 04/16/21 05:02 Plt Morphology Comment Not Reportable 04/16/21 05:02 RBC Morphology Not Reportable 04/16/21 05:02 Dimorphic RBCs Not Reportable 04/16/21 05:02 Polychromasia Not Reportable 04/16/21 05:02 Hypochromasia Not Reportable 04/16/21 05:02 Poikilocytosis Not Reportable 04/16/21 05:02 Anisocytosis Few 04/16/21 05:02 Microcytosis Not Reportable 04/16/21 05:02 Macrocytosis Not Reportable 04/16/21 05:02 Spherocytes Not Reportable 04/16/21 05:02 Pappenheimer Bodies Not Reportable 04/16/21 05:02 Sickle Cells Not Reportable 04/16/21 05:02 Target Cells Not Reportable 04/16/21 05:02 Tear Drop Cells Not Reportable 04/16/21 05:02 Ovalocytes Not Reportable 04/16/21 05:02 Helmet Cells Not Reportable 04/16/21 05:02 [place] Bodies Not Reportable 04/16/21 05:02 [place] Rings Not Reportable 04/16/21 05:02 Theo Cells Not Reportable 04/16/21 05:02 Bite Cells Not Reportable 04/16/21 05:02 Crenated Cell Not Reportable 04/16/21 05:02 Elliptocytes Not Reportable 04/16/21 05:02 Acanthocytes (Spur) Not Reportable 04/16/21 05:02 Rouleaux Not Reportable 04/16/21 05:02 Hemoglobin C Crystals Not Reportable 04/16/21 05:02 Schistocytes Not Reportable 04/16/21 05:02 Malaria parasites Not Reportable 04/16/21 05:02 James Bodies Not Reportable 04/16/21 05:02 Hem Pathologist Commnt No 04/16/21 05:02 PT 12.2 Sec. (12.2-14.9) 04/15/21 17:20 INR 0.91 (0.87-1.13) 04/15/21 17:20 APTT 31.8 Sec. (24.2-36.6) 04/15/21 17:20 ABG pH 7.526 (7.320-7.450) H 04/20/21 02:56 POC ABG pCO2 35.7 mmHg (32.0-48.0) 04/20/21 02:56 POC ABG pO2 105.1 mmHg (83-108) 04/20/21 02:56 POC ABG HCO3 28.9 04/20/21 02:56 ABG O2 Saturation 98.2 (0-100) 04/20/21 02:56 POC ABG Base Excess 5.9 04/20/21 02:56 ABG Hemoglobin 10.5 (12.0-17.5) L 04/20/21 02:56 ABG Oxyhemoglobin 97.6 (94-98) 04/20/21 02:56 ABG Methemoglobin 0.3 (0.0-1.5) 04/20/21 02:56 ABG Sodium 133.5 mmol/L (136.0-145.0) L 04/20/21 02:56 ABG Potassium 3.7 mmol/L (3.40-4.50) 04/20/21 02:56 ABG Chloride 99.0 mmol/L (98-107) 04/20/21 02:56 ABG Glucose 157 mg/dL (65-95) H 04/20/21 02:56 Carboxyhemoglobin 0.3 (0.5-1.5) L 04/20/21 02:56 FiO2 % 25.0 04/20/21 02:56 Sodium 138 mmol/L (137-145) 04/23/21 07:02 Potassium 4.2 mmol/L (3.6-5.0) 04/23/21 07:02 Chloride 97.7 mmol/L (98-107) L 04/23/21 07:02 Carbon Dioxide 28 mmol/L (22-30) 04/23/21 07:02 Anion Gap 17 mmol/L 04/23/21 07:02 BUN 57 mg/dL (7-17) H 04/23/21 07:02 Creatinine 2.0 mg/dL (0.6-1.2) H 04/23/21 07:02 Estimated GFR 29 ml/min 04/23/21 07:02 BUN/Creatinine Ratio 29 % 04/23/21 07:02 Glucose 253 mg/dL (65-100) H 04/23/21 07:02 POC Glucose 223 mg/dL (70-105) H 04/23/21 05:08 Lactic Acid 1.50 mmol/L (0.7-2.0) 04/15/21 17:20 Calcium 10.1 mg/dL (8.4-10.2) 04/23/21 07:02 Phosphorus 2.60 mg/dL (2.5-4.5) 04/22/21 08:00 Magnesium 2.10 mg/dL (1.7-2.3) 04/23/21 07:02 Total Bilirubin 0.70 mg/dL (0.1-1.2) 04/16/21 05:02 AST 65 units/L (5-40) H 04/16/21 05:02 ALT 31 units/L (7-56) 04/16/21 05:02 Alkaline Phosphatase 79 units/L (35-129) 04/16/21 05:02 Ammonia 46.0 umol/L (25-60) 04/15/21 17:20 Total Creatine Kinase 427 units/L (30-135) H 04/18/21 05:34 CK-MB (CK-2) 9.1 ng/mL (0.0-4.0) H 04/17/21 15:35 CK-MB (CK-2) Rel Index 1.4 (0-4) 04/17/21 15:35 Troponin T 0.065 ng/mL (0.00-0.029) H 04/20/21 03:32 NT-Pro-B Natriuret Pep 697.9 pg/mL (0-900) 04/15/21 17:20 Total Protein 6.3 g/dL (6.3-8.2) D 04/16/21 05:02 Albumin 3.8 g/dL (3.9-5) L 04/16/21 05:02 Albumin/Globulin Ratio 1.5 % 04/16/21 05:02 Triglycerides 103 mg/dL (2-149) 04/17/21 05:04 Cholesterol 122 mg/dL (50-199) 04/17/21 05:04 LDL Cholesterol Direct 55 mg/dL (50-130) 04/17/21 05:04 HDL Cholesterol 61 mg/dL (40-59) H 04/17/21 05:04 Cholesterol/HDL Ratio 2.00 % 04/17/21 05:04 Procalcitonin 0.20 ng/mL (<0.15) 04/16/21 19:01 TSH 14.190 mlU/mL (0.270-4.200) H 04/15/21 17:20 Thyroxine (T4) 4.1 ug/dL (4.0-12.0) 04/16/21 19:01 Free T3 Index 1.1 pg/mL (2.3-4.2) L 04/16/21 19:01 Arterial Blood Glucose 157 mg/dL (65-95) H 04/20/21 02:56 Arterial Blood Ionized Calcium 4.8 mg/dL (4.6-5.3) 04/20/21 02:56 Urine Color Yellow (Yellow) 04/18/21 09:11 Urine Turbidity Clear (Clear) 04/18/21 09:11 Urine pH 6.0 (5.0-7.0) 04/18/21 09:[address] 1.014 (1.003-1.030) 04/18/21 09:11 Urine Protein >500 mg/dL (Negative) 04/18/21 09:11 Urine Glucose (UA) Neg mg/dL (Negative) 04/18/21 09:11 Urine Ketones Neg mg/dL (Negative) 04/18/21 09:11 Urine Blood Sm (Negative) 04/18/21 09:11 Urine Nitrite Neg (Negative) 04/18/21 09:11 Urine Bilirubin Neg (Negative) 04/18/21 09:11 Urine Urobilinogen 2.0 mg/dL (<2.0) 04/18/21 09:11 Ur Leukocyte Esterase Lg (Negative) 04/18/21 09:11 Urine WBC (Auto) 34.0 /HPF (0.0-6.0) H 04/18/21 09:11 Urine RBC (Auto) 18.0 /HPF (0.0-6.0) 04/18/21 09:11 U Epithel Cells (Auto) < 1.0 /HPF (0-13.0) 04/16/21 00:09 Urine Bacteria (Auto) 1+ /HPF (Negative) 04/16/21 00:09 Urine Creatinine 24.4 mg/dL (0.1-20.0) H 04/16/21 00:12 Urine Sodium 97 mmol/L 04/16/21 00:12 Salicylates 4.1 mg/dL (2.8-20.0) 04/15/21 17:20 Acetaminophen 5.0 ug/mL (10.0-30.0) L 04/15/21 17:20 Plasma/Serum Alcohol 0.02 % (0-0.07) 04/15/21 17:20 Coronavirus (PCR) Negative (Negative) 04/16/21 Unknown Microbiology: Microbiology 04/18/21 15:27 Peripheral/Venous Blood Culture - Preliminary NO GROWTH AFTER 4 DAYS 04/18/21 15:27 Peripheral/Venous Blood Culture - Preliminary NO GROWTH AFTER 4 DAYS Kerr/IV: Voiding Method External Female Catheter Active Medications - Current Medications Current Medications: Generic Name Dose Route Start Last Admin Trade Name Freq PRN Reason Stop Dose Admin Acetaminophen 650 mg 04/15/21 19:11 04/19/21 23:33 Acetaminophen 325 Mg Tab PO 650 mg Q6H PRN Administration Pain MILD(1-3)/Fever >100.5/SEXTON Amlodipine Besylate 5 mg 04/22/21 10:00 04/23/21 10:05 Amlodipine 5 Mg Tab PO 5 mg QDAY WOLFGANG Administration Lipase/Protease/Amylase 1 each 04/16/21 12:52 Lipase 10,500/Protease 25,000/Amylase 43,750 (Units) Dr Simpson FEEDTUBE PRN PRN For Clogged Feeding Tube Bisacodyl 10 mg 04/17/21 11:01 04/17/21 13:46 Bisacodyl 10 Mg Rect Supp NV 10 mg QDAY PRN Administration Constipation Brimonidine Tartrate 1 drops 04/17/21 22:00 04/23/21 10:08 Brimonidine 0.15% Ophth Soln OU 1 drops BID WOLFGANG Administration Epinephrine 0.5 ml 04/21/21 12:56 Epinephrine Racemic 2.25% 0.5ml Nebu IH Q4HRT PRN Shortness Of Breath Famotidine 20 mg 04/17/21 10:00 04/23/21 10:05 Famotidine 20 Mg Tab PO 20 mg DAILY WOLFGANG Administration Heparin Sodium (Porcine) 5,000 unit 04/15/21 22:00 04/23/21 10:05 Heparin 5,000 Unit/1 Ml Vial SUB-Q 5,000 unit Q12HR WOLFGANG Administration Hydralazine HCl 10 mg 04/16/21 18:00 04/23/21 05:15 Hydralazine 20 Mg/1 Ml Inj IV 10 mg Q4HR PRN Administration Hypertension Hydralazine HCl 100 mg 04/21/21 14:00 04/23/21 10:05 Hydralazine 100 Mg Tab PO 100 mg TID WOLFGANG Administration Hydrophilic Ointment 1 applic 04/15/21 17:24 Lip Therapy Vaseline TP Q2HR PRN Dry Lips Propofol 1,000 mg in 100 mls @ 2.91 mls/hr 04/15/21 18:00 04/20/21 07:28 Diprivan 10 Mg/Ml IV 0 mcg/kg/min TITR WOLFGANG 0 mls/hr Titration Protocol 5 MCG/KG/MIN Insulin Glargine 20 units 04/22/21 07:58 04/23/21 10:05 Insulin Glargine 100 Units/Ml SUB-Q 20 units QAMDIAB WOLFGANG Administration Insulin Human Lispro 0 unit 04/16/21 15:00 04/23/21 05:16 Insulin Lispro 100 Unit/Ml SUB-Q 3 unit Q6HR WOLFGANG Administration Protocol Latanoprost 1 drops 04/17/21 18:00 04/22/21 18:22 Latanoprost 0.005% Ophth Soln 2.5 Ml OU 1 drops QPM WOLFGANG Administration Levothyroxine Sodium 25 mcg 04/19/21 06:00 04/23/21 05:15 Levothyroxine 25 Mcg Tab PO 25 mcg DAILY@0600 WOLFGANG Administration Methylprednisolone Sodium Succinate 30 mg 04/21/21 13:00 04/23/21 06:10 Methylprednisolone Sod Succinate 40 Mg/1 Ml Inj IV 04/24/21 12:59 30 mg Q6H WOLFGANG Administration Metoprolol Tartrate 25 mg 04/19/21 10:00 04/23/21 10:05 Metoprolol Tartrate 25 Mg Tab PO 25 mg BID WOLFGANG Administration Modafinil 100 mg 04/19/21 10:00 04/23/21 10:05 Modafinil 100 Mg Tab PO 100 mg QAM WOLFGANG Administration Multi-Ingred Cream/Lotion/Oil/Oint 1 applic 04/15/21 17:24 04/16/21 11:19 Mineral Oil/Petrolatum, White Ophth Oint 3.5 Gm OU 1 applic Q4HR PRN Administration Dry Eye(s) Pravastatin Sodium 20 mg 04/19/21 22:00 04/22/21 21:27 Pravastatin 20 Mg Tab PO 20 mg QHS WOLFGANG Administration Scopolamine 1 each 04/20/21 18:00 04/23/21 10:04 Scopolamine Transdermal Patch 72 Hr TD 1 each Q3D WOLFGANG Administration Simple Syrup 15 ml 04/16/21 12:52 Simple Syrup 15 Ml FEEDTUBE PRN PRN Hypoglycemia Simple Syrup 30 ml 04/16/21 12:52 Simple Syrup 15 Ml FEEDTUBE PRN PRN Hypoglycemia Sodium Bicarbonate 325 mg 04/16/21 12:52 Sodium Bicarbonate 325 Mg Tab FEEDTUBE PRN PRN For Clogged Feeding Tube Sodium Chloride 10 ml 04/15/21 22:00 04/23/21 10:06 Sodium Chloride 0.9% 10 Ml Flush Syringe IV 10 ml BID WOLFGANG Administration Sodium Chloride 10 ml 04/15/21 19:11 Sodium Chloride 0.9% 10 Ml Flush Syringe IV PRN PRN LINE FLUSH Timolol Maleate 1 drops 04/19/21 10:00 04/23/21 10:07 Timolol 0.5% Ophth Soln 5 Ml OU 1 drops QDAY WOLFGANG Administration Nutrition/Malnutrition Assess - Dietary Evaluation Nutrition/Malnutrition Findings: Nutrition Notes Start: 04/16/21 12:31 Freq: Status: Active Protocol: Document 04/19/21 10:52 EDWARD (Rec: 04/19/21 10:57 EDWARD [id number]) Co-Sign 04/19/21 10:52 SUNDEEP Nutrition Notes Need for Assessment generated from: MD Order Initial or Follow up Reassessment Current Diagnosis Acute Kidney Injury,Diabetes, Hypertension,Respiratory Failure Other Pertinent Diagnosis Dementia, AMS, hx BrCA, CO Current Diet Nepro at 35ml/hr Labs/Tests Na 133 K 2.8 BUN 43 Cr 2.7 BG 255 Ca 8.0 Pertinent Medications Kcl 40 meq Insulin Height 5 ft 6 in Weight 97 kg [place] Body Weight (kg) 59.09 BMI 34.4 Weight Status Obese Subjective/Other Information MD order for write/manage TF. Per chart, pt has dilated small bowel loops, but able to resume TF. TF running at goal at time of visit. RN notified about formula change. Percent of energy/protein needs met: 100%/58% Burn Absent Trauma Absent Difficulty In Swallowing Current % PO Negligible Minimum of two criteria No physical signs of malnutrition #1 Nutrition Diagnosis Inadequate oral intake Diagnosis Progress(for reassessment Continues documentation) Is patient on ventilator? Yes Is Patient Ambulatory and/or Out of Bed No REE-([facility]-confined to bed) 1748.712 Kcal/Kg value to use for calculation 15 Approximate Energy Requirements Using 1455 kcal/Kg Calculation Used for Recommendations Kcal/kg Additional Notes protien needs: >118g (>2 g/ kgIBW) Fluid needs: 1 ml/kcal Nutrition Intervention Change Diet Order: Continue TF Nutrition Support: Initiate Glucerna 1.2 at 20ml/ hr and increase by 15ml q8h until goal rate of 50ml/hr. Flush 50ml q4h for hyponatremia. Flush 80 ml q4h once hyponatremia resolves. Kcal 1,440 Protein (gm) 72 Fluid (mL) 966 Goal #1 Meet 75% energy and protein needs as best as possible via TF Anticipated Discharge Needs: unable to determine at this time Follow-Up By: 04/23/21 Additional Comments F/U for TF formula change and tolerance
--- NOTE | 2021-04-23 11:20 | Progress Note ---
Assessment and Plan Assessment and Plan Assessment and plan: This is a 80-year-old female with hypertension, diabetes mellitus, MO, breast cancer s/p double mastectomy, and a TIA who presented with hypoglycemia and altered mental status on 04/15 via EMS. Per EMS patient was unresponsive on their arrival and her blood glucose was 38 and she received 1 amp of dextrose patient continued to be unresponsive and only moaned with her eyes deviating to the left. Work-up in the emergency department revealed SIRS, symptomatic bradycardia, acute metabolic encephalopathy, acute hypoxic respiratory failure, elevated TSH, hyperglycemia, hyponatremia, hyperkalemia, acute kidney injury with ATN, and rhabdomyolysis 04/16: Neurology consulted, COVID- PCR negative, D10 drip decreased and eventually discontinued by CCM and started on D5W for 1 L. Hydralazine as n eeded. Patient had hyper kalemia today and was treated with D50, insulin and Kayexalate. This time examination patient is on assist control tidal volume 450, rate of 16, PEEP of 6 and 25% FiO2. -CCM, cardiology, nephrology, neurology, nutrition consulted, -04/15 CT head shows age-related atrophic change, chronic small vessel ischemic change, no CT evidence of acute large vessel territory ischemic injury, hemorrhage or mass -04/15 echocardiogram shows left ventricular systolic function borderline, LVEF 45 to 50%, mild concentric LVH, paradoxical septal motion consistent with left bundle branch block with no clot identified in the left ventricle, calcified aortic valve without regurgitation or stenosis, trace MR, trace TR, no MT, RVSP is 24 mmHg -04/17 KUB shows gas-filled and dilated loops of small bowel noted over the upper abdomen largest measuring 5 cm concerning for ileus versus mechanical obstruction -04/18 KUB shows interval resolution of previously seen small bowel dilation -04/18 EEG diffuse slowing 04/18: Neurology has ordered EEG/MRI Brain is remarkable for slight atrophy #Acute metabolic encephalopathy-persist #Acute hypoxic respiratory failure (extubated 04/20) First-degree heart block Resolved ileus versus mechanical obstruction #Acute kidney injury UTI, Pseudomonas No sign of seizure activity -EEG is remarkable for diffuse mild slowing #Elevated TSH #Mild rhabdomyolysis #Hypertension #Diabetes mellitus with hyperglycemia on admission #CAD #Chronic illness debilitymyopathy #Obesity DVT/GI prophylaxis: Heparin subcu, PPI, SCDs to bilateral lower extremities while in bed Disposition: IMCU PLAN 1- As above 2- will continue to monitor if no improvment in status will consider repeat MRI brain ? anoxic brain injury Subjective Date of service: 04/23/21 Principal diagnosis: Ac. resp failure; AMS; Hypoglycemia; ROJELIO; Hyperkalemia; DM II Interval history: History Interval history: This is a 80-year-old female with HTN, DM, MO, breast CA s/p double mastectomy, TIA who presented with hypoglycemia, AMS who was admitted with SIRS, symptomatic bradycardia, acute metabolic encephalopathy, acute hypoxic respiratory failure, elevated TSH, hyperglycemia, hyponatremia, hypokalemia, ROJELIO and rhabdomyolysis Objective - Vital Sign Vital Signs - 12hr 04/22/21 04/22/21 04/22/21 23:17 23:25 23:30 Temperature 98.4 F Pulse Rate 78 79 Pulse Rate [ From Monitor] Respiratory 23 Rate Blood Pressure 181/87 181/87 O2 Sat by Pulse 98 Oximetry 04/23/21 04/23/21 04/23/21 00:00 00:30 01:00 Temperature Pulse Rate 81 76 73 Pulse Rate [ 77 From Monitor] Respiratory 22 21 21 Rate Blood Pressure 161/79 170/71 175/116 O2 Sat by Pulse 98 97 97 Oximetry 04/23/21 04/23/21 04/23/21 01:30 02:00 02:30 Temperature Pulse Rate 80 74 77 Pulse Rate [ From Monitor] Respiratory 22 19 22 Rate Blood Pressure 172/69 158/72 158/86 O2 Sat by Pulse 98 97 97 Oximetry 04/23/21 04/23/21 04/23/21 03:00 03:30 03:35 Temperature 98.4 F Pulse Rate 75 76 Pulse Rate [ From Monitor] Respiratory 25 H 20 Rate Blood Pressure 164/73 110/81 O2 Sat by Pulse 99 98 Oximetry 04/23/21 04/23/21 04/23/21 04:00 04:30 05:00 Temperature Pulse Rate 83 79 83 Pulse Rate [ 75 From Monitor] Respiratory 22 19 14 Rate Blood Pressure 120/90 172/102 201/148 O2 Sat by Pulse 98 98 97 Oximetry 04/23/21 04/23/21 04/23/21 05:15 05:30 06:00 Temperature Pulse Rate 84 75 78 Pulse Rate [ From Monitor] Respiratory 21 18 Rate Blood Pressure 192/130 192/130 175/70 O2 Sat by Pulse 98 97 Oximetry 04/23/21 04/23/21 04/23/21 06:30 07:00 07:30 Temperature Pulse Rate 80 75 75 Pulse Rate [ From Monitor] Respiratory 18 21 20 Rate Blood Pressure 172/85 175/87 160/67 O2 Sat by Pulse 98 98 98 Oximetry 04/23/21 04/23/21 04/23/21 08:00 08:30 08:45 Temperature 98.2 F Pulse Rate 84 83 Pulse Rate [ From Monitor] Respiratory 22 21 Rate Blood Pressure 172/83 165/85 O2 Sat by Pulse 98 97 98 Oximetry 04/23/21 04/23/21 04/23/21 09:00 09:31 10:01 Temperature Pulse Rate 85 88 87 Pulse Rate [ From Monitor] Respiratory 22 22 22 Rate Blood Pressure 168/70 176/75 167/78 O2 Sat by Pulse 99 99 98 Oximetry 04/23/21 10:05 Temperature Pulse Rate 85 Pulse Rate [ From Monitor] Respiratory Rate Blood Pressure 165/78 O2 Sat by Pulse Oximetry - General Apperance Constitutional: other (Alert extubated not follow command, moan at time , not tracking on evaluation) - EENT EENT: PERRL, mucous membranes moist - Respiratory Respiratory: lungs clear, rhonchi - Cardiovascular Cardiovascular: regular rate, normal S1, normal S2 Extremities: no peripheral edema bilat - Gastrointestinal Gastrointestinal: normoactive bowel sounds - Integumentary Integumentary: normal - Neurologic Cranial nerve examination: PERRL, EOMI, intact Speech examination: other (no speech out put not follow command) Detailed motor examination: other (diffuse weakness not follow command hard to assess strength , she withdraw to simuli ) - Laboratory Findings CBC and BMP: 04/22/21 08:00 04/23/21 07:02 Abnormal Lab Findings: Abnormal Labs 04/15/21 04/15/21 04/15/21 17:20 17:20 17:20 WBC 11.2 H RBC Hct 43.0 H MCV RDW 15.3 H Plt Count Lymph % (Auto) 12.8 L Seg Neutrophils % 82.4 H Seg Neuts % (Manual) Lymphocytes % (Manual) Monocytes % (Manual) Seg Neutrophils # 9.3 H Seg Neutrophils # Man Lymphocytes # (Manual) Monocytes # (Manual) ABG pH POC ABG pCO2 POC ABG pO2 ABG Hemoglobin ABG Oxyhemoglobin ABG Sodium ABG Potassium ABG Chloride ABG Glucose Carboxyhemoglobin Sodium 129 L Potassium 7.1 H* Chloride 91.9 L BUN 35 H Creatinine 2.8 H Glucose POC Glucose Calcium Phosphorus Magnesium AST 69 H Total Creatine Kinase 1000 H CK-MB (CK-2) Troponin T Albumin HDL Cholesterol TSH Free T3 Index Arterial Blood Glucose Arterial Blood Ionized Calcium Urine pH Urine WBC (Auto) Urine Creatinine Acetaminophen 04/15/21 04/15/21 04/15/21 17:20 17:20 20:49 WBC RBC Hct MCV RDW Plt Count Lymph % (Auto) Seg Neutrophils % Seg Neuts % (Manual) Lymphocytes % (Manual) Monocytes % (Manual) Seg Neutrophils # Seg Neutrophils # Man Lymphocytes # (Manual) Monocytes # (Manual) ABG pH 7.557 H POC ABG pCO2 30.0 L POC ABG pO2 493.3 H ABG Hemoglobin ABG Oxyhemoglobin 99.0 H ABG Sodium 131.5 L ABG Potassium 4.7 H ABG Chloride 94.0 L ABG Glucose 218 H Carboxyhemoglobin Sodium Potassium Chloride BUN Creatinine Glucose POC Glucose Calcium Phosphorus Magnesium AST Total Creatine Kinase CK-MB (CK-2) Troponin T Albumin HDL Cholesterol TSH 14.190 H Free T3 Index Arterial Blood Glucose 218 H Arterial Blood Ionized Calcium 5.4 H Urine pH Urine WBC (Auto) Urine Creatinine Acetaminophen 5.0 L 04/15/21 04/15/21 04/16/21 21:23 23:15 00:09 WBC RBC Hct MCV RDW Plt Count Lymph % (Auto) Seg Neutrophils % Seg Neuts % (Manual) Lymphocytes % (Manual) Monocytes % (Manual) Seg Neutrophils # Seg Neutrophils # Man Lymphocytes # (Manual) Monocytes # (Manual) ABG pH POC ABG pCO2 POC ABG pO2 ABG Hemoglobin ABG Oxyhemoglobin ABG Sodium ABG Potassium ABG Chloride ABG Glucose Carboxyhemoglobin Sodium Potassium Chloride BUN Creatinine Glucose POC Glucose 173 H 207 H Calcium Phosphorus Magnesium AST Total Creatine Kinase CK-MB (CK-2) Troponin T Albumin HDL Cholesterol TSH Free T3 Index Arterial Blood Glucose Arterial Blood Ionized Calcium Urine pH 9.0 H Urine WBC (Auto) Urine Creatinine Acetaminophen 04/16/21 04/16/21 04/16/21 00:12 00:19 03:43 WBC RBC Hct MCV RDW Plt Count Lymph % (Auto) Seg Neutrophils % Seg Neuts % (Manual) Lymphocytes % (Manual) Monocytes % (Manual) Seg Neutrophils # Seg Neutrophils # Man Lymphocytes # (Manual) Monocytes # (Manual) ABG pH 7.461 H POC ABG pCO2 POC ABG pO2 ABG Hemoglobin ABG Oxyhemoglobin ABG Sodium 126.8 L ABG Potassium 5.4 H ABG Chloride 90.0 L ABG Glucose 325 H Carboxyhemoglobin Sodium Potassium 6.7 H* Chloride BUN Creatinine Glucose POC Glucose Calcium Phosphorus Magnesium AST Total Creatine Kinase CK-MB (CK-2) Troponin T Albumin HDL Cholesterol TSH Free T3 Index Arterial Blood Glucose 325 H Arterial Blood Ionized Calcium Urine pH Urine WBC (Auto) Urine Creatinine 24.4 H Acetaminophen 04/16/21 04/16/21 04/16/21 03:55 05:02 05:02 WBC 21.2 H RBC Hct 43.4 H MCV 98 H RDW Plt Count Lymph % (Auto) Seg Neutrophils % Seg Neuts % (Manual) 84.0 H Lymphocytes % (Manual) 2.0 L Monocytes % (Manual) 10.0 H Seg Neutrophils # Seg Neutrophils # Man 17.8 H Lymphocytes # (Manual) 0.4 L Monocytes # (Manual) 2.1 H ABG pH POC ABG pCO2 POC ABG pO2 ABG Hemoglobin ABG Oxyhemoglobin ABG Sodium ABG Potassium ABG Chloride ABG Glucose Carboxyhemoglobin Sodium 131 L Potassium 5.9 H Chloride 88.7 L BUN 34 H Creatinine 2.9 H Glucose 249 H POC Glucose 391 H Calcium 10.4 H Phosphorus Magnesium AST 65 H Total Creatine Kinase CK-MB (CK-2) Troponin T Albumin 3.8 L HDL Cholesterol TSH Free T3 Index Arterial Blood Glucose Arterial Blood Ionized Calcium Urine pH Urine WBC (Auto) Urine Creatinine Acetaminophen 04/16/21 04/16/21 04/16/21 11:34 16:09 18:15 WBC RBC Hct MCV RDW Plt Count Lymph % (Auto) Seg Neutrophils % Seg Neuts % (Manual) Lymphocytes % (Manual) Monocytes % (Manual) Seg Neutrophils # Seg Neutrophils # Man Lymphocytes # (Manual) Monocytes # (Manual) ABG pH POC ABG pCO2 POC ABG pO2 ABG Hemoglobin ABG Oxyhemoglobin ABG Sodium ABG Potassium ABG Chloride ABG Glucose Carboxyhemoglobin Sodium Potassium Chloride BUN Creatinine Glucose POC Glucose 382 H 300 H 287 H Calcium Phosphorus Magnesium AST Total Creatine Kinase CK-MB (CK-2) Troponin T Albumin HDL Cholesterol TSH Free T3 Index Arterial Blood Glucose Arterial Blood Ionized Calcium Urine pH Urine WBC (Auto) Urine Creatinine Acetaminophen 04/16/21 04/16/21 04/16/21 19:01 19:01 19:01 WBC RBC Hct MCV RDW Plt Count Lymph % (Auto) Seg Neutrophils % Seg Neuts % (Manual) Lymphocytes % (Manual) Monocytes % (Manual) Seg Neutrophils # Seg Neutrophils # Man Lymphocytes # (Manual) Monocytes # (Manual) ABG pH POC ABG pCO2 POC ABG pO2 ABG Hemoglobin ABG Oxyhemoglobin ABG Sodium ABG Potassium ABG Chloride ABG Glucose Carboxyhemoglobin Sodium 125 L Potassium 5.5 H 5.6 H Chloride 84.5 L BUN 37 H Creatinine 3.5 H Glucose 236 H POC Glucose Calcium Phosphorus Magnesium AST Total Creatine Kinase CK-MB (CK-2) Troponin T Albumin HDL Cholesterol TSH Free T3 Index 1.1 L Arterial Blood Glucose Arterial Blood Ionized Calcium Urine pH Urine WBC (Auto) Urine Creatinine Acetaminophen 04/16/21 04/17/21 04/17/21 23:48 03:09 05:04 WBC RBC Hct MCV RDW Plt Count Lymph % (Auto) Seg Neutrophils % Seg Neuts % (Manual) Lymphocytes % (Manual) Monocytes % (Manual) Seg Neutrophils # Seg Neutrophils # Man Lymphocytes # (Manual) Monocytes # (Manual) ABG pH 7.518 H POC ABG pCO2 POC ABG pO2 ABG Hemoglobin ABG Oxyhemoglobin ABG Sodium 126.4 L ABG Potassium ABG Chloride 89.0 L ABG Glucose 200 H Carboxyhemoglobin Sodium 129 L Potassium Chloride 86.1 L BUN 39 H Creatinine 3.5 H Glucose 202 H POC Glucose 243 H Calcium Phosphorus Magnesium AST Total Creatine Kinase 750 H CK-MB (CK-2) Troponin T 0.119 H* D Albumin HDL Cholesterol 61 H TSH Free T3 Index Arterial Blood Glucose 200 H Arterial Blood Ionized Calcium 4.4 L Urine pH Urine WBC (Auto) Urine Creatinine Acetaminophen 04/17/21 04/17/21 04/17/21 06:14 11:55 15:35 WBC RBC Hct MCV RDW Plt Count Lymph % (Auto) Seg Neutrophils % Seg Neuts % (Manual) Lymphocytes % (Manual) Monocytes % (Manual) Seg Neutrophils # Seg Neutrophils # Man Lymphocytes # (Manual) Monocytes # (Manual) ABG pH POC ABG pCO2 POC ABG pO2 ABG Hemoglobin ABG Oxyhemoglobin ABG Sodium ABG Potassium ABG Chloride ABG Glucose Carboxyhemoglobin Sodium Potassium Chloride BUN Creatinine Glucose POC Glucose 208 H 276 H Calcium Phosphorus Magnesium AST Total Creatine Kinase 615 H CK-MB (CK-2) 9.1 H Troponin T Albumin HDL Cholesterol TSH Free T3 Index Arterial Blood Glucose Arterial Blood Ionized Calcium Urine pH Urine WBC (Auto) Urine Creatinine Acetaminophen 04/17/21 04/17/21 04/18/21 15:35 17:07 00:01 WBC 17.1 H RBC Hct MCV RDW Plt Count Lymph % (Auto) Seg Neutrophils % Seg Neuts % (Manual) Lymphocytes % (Manual) Monocytes % (Manual) Seg Neutrophils # Seg Neutrophils # Man Lymphocytes # (Manual) Monocytes # (Manual) ABG pH POC ABG pCO2 POC ABG pO2 ABG Hemoglobin ABG Oxyhemoglobin ABG Sodium ABG Potassium ABG Chloride ABG Glucose Carboxyhemoglobin Sodium Potassium Chloride BUN Creatinine Glucose POC Glucose 148 H 192 H Calcium Phosphorus Magnesium AST Total Creatine Kinase CK-MB (CK-2) Troponin T Albumin HDL Cholesterol TSH Free T3 Index Arterial Blood Glucose Arterial Blood Ionized Calcium Urine pH Urine WBC (Auto) Urine Creatinine Acetaminophen 04/18/21 04/18/21 04/18/21 03:00 05:24 05:34 WBC 15.3 H RBC 3.34 L Hct MCV RDW 15.3 H Plt Count Lymph % (Auto) Seg Neutrophils % Seg Neuts % (Manual) Lymphocytes % (Manual) Monocytes % (Manual) Seg Neutrophils # Seg Neutrophils # Man Lymphocytes # (Manual) Monocytes # (Manual) ABG pH 7.497 H POC ABG pCO2 POC ABG pO2 77.7 L ABG Hemoglobin 10.4 L ABG Oxyhemoglobin ABG Sodium 129.7 L ABG Potassium 2.8 L ABG Chloride 92.0 L ABG Glucose 134 H Carboxyhemoglobin 0.3 L Sodium Potassium Chloride BUN Creatinine Glucose POC Glucose 162 H Calcium Phosphorus Magnesium AST Total Creatine Kinase CK-MB (CK-2) Troponin T Albumin HDL Cholesterol TSH Free T3 Index Arterial Blood Glucose 134 H Arterial Blood Ionized Calcium 4.3 L Urine pH Urine WBC (Auto) Urine Creatinine Acetaminophen 04/18/21 04/18/21 04/18/21 05:34 05:43 09:11 WBC RBC Hct MCV RDW Plt Count Lymph % (Auto) Seg Neutrophils % Seg Neuts % (Manual) Lymphocytes % (Manual) Monocytes % (Manual) Seg Neutrophils # Seg Neutrophils # Man Lymphocytes # (Manual) Monocytes # (Manual) ABG pH POC ABG pCO2 POC ABG pO2 ABG Hemoglobin ABG Oxyhemoglobin ABG Sodium ABG Potassium ABG Chloride ABG Glucose Carboxyhemoglobin Sodium 134 L Potassium 3.0 L D Chloride 93.5 L BUN 42 H Creatinine 3.1 H Glucose 152 H POC Glucose Calcium Phosphorus Magnesium 1.40 L AST Total Creatine Kinase 427 H CK-MB (CK-2) Troponin T 0.081 H D Albumin HDL Cholesterol TSH Free T3 Index Arterial Blood Glucose Arterial Blood Ionized Calcium Urine pH Urine WBC (Auto) 34.0 H Urine Creatinine Acetaminophen 04/18/21 04/18/21 04/18/21 11:34 17:24 23:18 WBC RBC Hct MCV RDW Plt Count Lymph % (Auto) Seg Neutrophils % Seg Neuts % (Manual) Lymphocytes % (Manual) Monocytes % (Manual) Seg Neutrophils # Seg Neutrophils # Man Lymphocytes # (Manual) Monocytes # (Manual) ABG pH POC ABG pCO2 POC ABG pO2 ABG Hemoglobin ABG Oxyhemoglobin ABG Sodium ABG Potassium ABG Chloride ABG Glucose Carboxyhemoglobin Sodium Potassium Chloride BUN Creatinine Glucose POC Glucose 170 H 151 H 182 H Calcium Phosphorus Magnesium AST Total Creatine Kinase CK-MB (CK-2) Troponin T Albumin HDL Cholesterol TSH Free T3 Index Arterial Blood Glucose Arterial Blood Ionized Calcium Urine pH Urine WBC (Auto) Urine Creatinine Acetaminophen 04/19/21 04/19/21 04/19/21 04:09 05:19 07:30 WBC 14.8 H RBC 3.20 L Hct MCV 98 H RDW Plt Count 137 L Lymph % (Auto) Seg Neutrophils % Seg Neuts % (Manual) Lymphocytes % (Manual) Monocytes % (Manual) Seg Neutrophils # Seg Neutrophils # Man Lymphocytes # (Manual) Monocytes # (Manual) ABG pH 7.476 H POC ABG pCO2 POC ABG pO2 79.4 L ABG Hemoglobin 10.7 L ABG Oxyhemoglobin ABG Sodium 131.2 L ABG Potassium 2.8 L ABG Chloride 94.0 L ABG Glucose 209 H Carboxyhemoglobin 0.3 L Sodium Potassium Chloride BUN Creatinine Glucose POC Glucose 204 H Calcium Phosphorus Magnesium AST Total Creatine Kinase CK-MB (CK-2) Troponin T Albumin HDL Cholesterol TSH Free T3 Index Arterial Blood Glucose 209 H Arterial Blood Ionized Calcium Urine pH Urine WBC (Auto) Urine Creatinine Acetaminophen 04/19/21 04/19/21 04/19/21 07:30 10:35 11:48 WBC RBC Hct MCV RDW Plt Count Lymph % (Auto) Seg Neutrophils % Seg Neuts % (Manual) Lymphocytes % (Manual) Monocytes % (Manual) Seg Neutrophils # Seg Neutrophils # Man Lymphocytes # (Manual) Monocytes # (Manual) ABG pH 7.464 H POC ABG pCO2 POC ABG pO2 81.8 L ABG Hemoglobin 10.8 L ABG Oxyhemoglobin ABG Sodium 129.6 L ABG Potassium ABG Chloride 95.0 L ABG Glucose 238 H Carboxyhemoglobin Sodium 133 L Potassium 2.8 L* Chloride 94.4 L BUN 43 H Creatinine 2.7 H Glucose 255 H POC Glucose 208 H Calcium 8.0 L Phosphorus Magnesium AST Total Creatine Kinase CK-MB (CK-2) Troponin T 0.060 H D Albumin HDL Cholesterol TSH Free T3 Index Arterial Blood Glucose 238 H Arterial Blood Ionized Calcium Urine pH Urine WBC (Auto) Urine Creatinine Acetaminophen 04/19/21 04/19/21 04/20/21 20:40 23:04 02:56 WBC RBC Hct MCV RDW Plt Count Lymph % (Auto) Seg Neutrophils % Seg Neuts % (Manual) Lymphocytes % (Manual) Monocytes % (Manual) Seg Neutrophils # Seg Neutrophils # Man Lymphocytes # (Manual) Monocytes # (Manual) ABG pH 7.526 H POC ABG pCO2 POC ABG pO2 ABG Hemoglobin 10.5 L ABG Oxyhemoglobin ABG Sodium 133.5 L ABG Potassium ABG Chloride ABG Glucose 157 H Carboxyhemoglobin 0.3 L Sodium Potassium 3.4 L D Chloride BUN Creatinine Glucose POC Glucose 173 H Calcium Phosphorus Magnesium AST Total Creatine Kinase CK-MB (CK-2) Troponin T Albumin HDL Cholesterol TSH Free T3 Index Arterial Blood Glucose 157 H Arterial Blood Ionized Calcium Urine pH Urine WBC (Auto) Urine Creatinine Acetaminophen 04/20/21 04/20/21 04/20/21 03:32 03:32 03:46 WBC 13.2 H RBC 3.18 L Hct MCV RDW Plt Count Lymph % (Auto) Seg Neutrophils % Seg Neuts % (Manual) Lymphocytes % (Manual) Monocytes % (Manual) Seg Neutrophils # Seg Neutrophils # Man Lymphocytes # (Manual) Monocytes # (Manual) ABG pH POC ABG pCO2 POC ABG pO2 ABG Hemoglobin ABG Oxyhemoglobin ABG Sodium ABG Potassium ABG Chloride ABG Glucose Carboxyhemoglobin Sodium 135 L Potassium Chloride 96.7 L BUN 40 H Creatinine 2.3 H Glucose 142 H POC Glucose Calcium Phosphorus 2.10 L Magnesium AST Total Creatine Kinase CK-MB (CK-2) Troponin T 0.065 H Albumin HDL Cholesterol TSH Free T3 Index Arterial Blood Glucose Arterial Blood Ionized Calcium Urine pH Urine WBC (Auto) Urine Creatinine Acetaminophen 04/20/21 04/20/21 04/20/21 05:42 11:50 17:09 WBC RBC Hct MCV RDW Plt Count Lymph % (Auto) Seg Neutrophils % Seg Neuts % (Manual) Lymphocytes % (Manual) Monocytes % (Manual) Seg Neutrophils # Seg Neutrophils # Man Lymphocytes # (Manual) Monocytes # (Manual) ABG pH POC ABG pCO2 POC ABG pO2 ABG Hemoglobin ABG Oxyhemoglobin ABG Sodium ABG Potassium ABG Chloride ABG Glucose Carboxyhemoglobin Sodium Potassium Chloride BUN Creatinine Glucose POC Glucose 160 H 194 H 153 H Calcium Phosphorus Magnesium AST Total Creatine Kinase CK-MB (CK-2) Troponin T Albumin HDL Cholesterol TSH Free T3 Index Arterial Blood Glucose Arterial Blood Ionized Calcium Urine pH Urine WBC (Auto) Urine Creatinine Acetaminophen 04/20/21 04/21/21 04/21/21 23:18 05:26 05:51 WBC RBC 3.20 L Hct MCV 99 H RDW 15.3 H Plt Count Lymph % (Auto) Seg Neutrophils % Seg Neuts % (Manual) Lymphocytes % (Manual) Monocytes % (Manual) Seg Neutrophils # Seg Neutrophils # Man Lymphocytes # (Manual) Monocytes # (Manual) ABG pH POC ABG pCO2 POC ABG pO2 ABG Hemoglobin ABG Oxyhemoglobin ABG Sodium ABG Potassium ABG Chloride ABG Glucose Carboxyhemoglobin Sodium Potassium Chloride BUN Creatinine Glucose POC Glucose 162 H 164 H Calcium Phosphorus Magnesium AST Total Creatine Kinase CK-MB (CK-2) Troponin T Albumin HDL Cholesterol TSH Free T3 Index Arterial Blood Glucose Arterial Blood Ionized Calcium Urine pH Urine WBC (Auto) Urine Creatinine Acetaminophen 04/21/21 04/21/21 04/21/21 05:51 12:12 17:13 WBC RBC Hct MCV RDW Plt Count Lymph % (Auto) Seg Neutrophils % Seg Neuts % (Manual) Lymphocytes % (Manual) Monocytes % (Manual) Seg Neutrophils # Seg Neutrophils # Man Lymphocytes # (Manual) Monocytes # (Manual) ABG pH POC ABG pCO2 POC ABG pO2 ABG Hemoglobin ABG Oxyhemoglobin ABG Sodium ABG Potassium ABG Chloride ABG Glucose Carboxyhemoglobin Sodium Potassium Chloride 96.6 L BUN 42 H Creatinine 2.1 H Glucose 171 H POC Glucose 167 H 178 H Calcium Phosphorus Magnesium AST Total Creatine Kinase CK-MB (CK-2) Troponin T Albumin HDL Cholesterol TSH Free T3 Index Arterial Blood Glucose Arterial Blood Ionized Calcium Urine pH Urine WBC (Auto) Urine Creatinine Acetaminophen 04/21/21 04/22/21 04/22/21 23:42 05:29 08:00 WBC 12.9 H RBC Hct MCV RDW Plt Count Lymph % (Auto) Seg Neutrophils % Seg Neuts % (Manual) Lymphocytes % (Manual) Monocytes % (Manual) Seg Neutrophils # Seg Neutrophils # Man Lymphocytes # (Manual) Monocytes # (Manual) ABG pH POC ABG pCO2 POC ABG pO2 ABG Hemoglobin ABG Oxyhemoglobin ABG Sodium ABG Potassium ABG Chloride ABG Glucose Carboxyhemoglobin Sodium Potassium Chloride BUN Creatinine Glucose POC Glucose 253 H 208 H Calcium Phosphorus Magnesium AST Total Creatine Kinase CK-MB (CK-2) Troponin T Albumin HDL Cholesterol TSH Free T3 Index Arterial Blood Glucose Arterial Blood Ionized Calcium Urine pH Urine WBC (Auto) Urine Creatinine Acetaminophen 04/22/21 04/22/21 04/22/21 08:00 12:06 17:34 WBC RBC Hct MCV RDW Plt Count Lymph % (Auto) Seg Neutrophils % Seg Neuts % (Manual) Lymphocytes % (Manual) Monocytes % (Manual) Seg Neutrophils # Seg Neutrophils # Man Lymphocytes # (Manual) Monocytes # (Manual) ABG pH POC ABG pCO2 POC ABG pO2 ABG Hemoglobin ABG Oxyhemoglobin ABG Sodium ABG Potassium ABG Chloride ABG Glucose Carboxyhemoglobin Sodium Potassium Chloride BUN 47 H Creatinine 1.9 H Glucose 252 H POC Glucose 298 H 259 H Calcium Phosphorus Magnesium AST Total Creatine Kinase CK-MB (CK-2) Troponin T Albumin HDL Cholesterol TSH Free T3 Index Arterial Blood Glucose Arterial Blood Ionized Calcium Urine pH Urine WBC (Auto) Urine Creatinine Acetaminophen 04/22/21 04/23/21 04/23/21 23:01 05:08 07:02 WBC RBC Hct MCV RDW Plt Count Lymph % (Auto) Seg Neutrophils % Seg Neuts % (Manual) Lymphocytes % (Manual) Monocytes % (Manual) Seg Neutrophils # Seg Neutrophils # Man Lymphocytes # (Manual) Monocytes # (Manual) ABG pH POC ABG pCO2 POC ABG pO2 ABG Hemoglobin ABG Oxyhemoglobin ABG Sodium ABG Potassium ABG Chloride ABG Glucose Carboxyhemoglobin Sodium Potassium Chloride 97.7 L BUN 57 H Creatinine 2.0 H Glucose 253 H POC Glucose 280 H 223 H Calcium Phosphorus Magnesium AST Total Creatine Kinase CK-MB (CK-2) Troponin T Albumin HDL Cholesterol TSH Free T3 Index Arterial Blood Glucose Arterial Blood Ionized Calcium Urine pH Urine WBC (Auto) Urine Creatinine Acetaminophen
--- NOTE | 2021-04-23 13:42 | Progress Note ---
Assessment and Plan This is a 80-year-old female with hypertension, diabetes mellitus, [place], breast cancer s/p double mastectomy, and a TIA who presented with hypoglycemia and altered mental status on 04/15 via EMS. Per EMS patient was unresponsive on their arrival and her blood glucose was 38 and she received 1 amp of dextrose patient continued to be unresponsive and only moaned with her eyes deviating to the left. Work-up in the emergency department revealed SIRS, symptomatic bradycardia, acute metabolic encephalopathy, acute hypoxic respiratory failure, elevated TSH, hyperglycemia, hyponatremia, hyperkalemia, acute kidney injury with ATN, and rhabdomyolysis. Patient is sleepy, and moaning and groaning at times. Patient presently on room air. O2 saturation 97%. BiPAP standby in the room. Patient having mild shortness of breath at rest. Patient is afebrile, with mild leukocytosis. Chest x-ray done on 04/18/21 reported Mildly reduced lung volumes are again seen with probable bibasilar atelectasis. No significant pleural effusion. No pneumothorax. Medications include s/c heparin, famotidine, and methylprednisolone. Recommend albuterol aerosol treatments q6 hours. I spent critical care time of 40 minutes reviewing the chart, examining the patient, reviewing the chest x-ray and laboratory results, and talking to the nursing staff and respiratory therapists, and working out a plan of treatment. - Patient Problems (1) Acute hypoxemic respiratory failure Current Visit: Yes Status: Acute Plan to address problem: Patient presently on room air. O2 saturation 97%. BiPAP standby in the room. Patient having mild shortness of breath at rest. Patient is on prednisone and s/c heparin and famotidine. Recommend albuterol aerosol treatments. (2) Acute kidney injury (ROJELIO) with acute tubular necrosis (ATN) Current Visit: Yes Status: Acute Plan to address problem: Management as per nephrology. (3) Acute metabolic encephalopathy due to hypoglycemia Current Visit: Yes Status: Acute Plan to address problem: Management as per primary care. (4) Ileus Current Visit: Yes Status: Acute Plan to address problem: Management as per primary care. (5) Non-STEMI (non-ST elevated myocardial infarction) Current Visit: Yes Status: Acute Plan to address problem: Management as per cardiology. (6) Status epilepticus Current Visit: Yes Status: Acute Plan to address problem: Management as per neurology. (7) Diabetes mellitus Current Visit: Yes Status: Chronic Plan to address problem: Management as per primary team. Subjective Date of service: 04/23/21 Principal diagnosis: Ac. resp failure; AMS; Hypoglycemia; ROJELIO; Hyperkalemia; DM II Interval history: This is a 80-year-old female with hypertension, diabetes mellitus, [place], breast cancer s/p double mastectomy, and a TIA who presented with hypoglycemia and altered mental status on 04/15 via EMS. Per EMS patient was unresponsive on their arrival and her blood glucose was 38 and she received 1 amp of dextrose patient continued to be unresponsive and only moaned with her eyes deviating to the left. Work-up in the emergency department revealed SIRS, symptomatic bradycardia, acute metabolic encephalopathy, acute hypoxic respiratory failure, elevated TSH, hyperglycemia, hyponatremia, hyperkalemia, acute kidney injury w ith ATN, and rhabdomyolysis. Patient is sleepy, and moaning and groaning at times. Patient presently on room air. O2 saturation 97%. BiPAP standby in the room. Patient having mild shortness of breath at rest. Patient is afebrile, with mild leukocytosis. Chest x-ray done on 04/18/21 reported Mildly reduced lung volumes are again seen with probable bibasilar atelectasis. No significant pleural effusion. No pneumothorax. Medications include s/c heparin, famotidine, and methylprednisolone. Recommend albuterol aerosol treatments q6 hours. Objective Vital Signs - 12hr 04/23/21 04/23/21 04/23/21 02:00 02:30 03:00 Temperature Pulse Rate 74 77 75 Pulse Rate [ From Monitor] Respiratory 19 22 25 H Rate Blood Pressure 158/72 158/86 164/73 O2 Sat by Pulse 97 97 99 Oximetry 04/23/21 04/23/21 04/23/21 03:30 03:35 04:00 Temperature 98.4 F Pulse Rate 76 83 Pulse Rate [ 75 From Monitor] Respiratory 20 22 Rate Blood Pressure 110/81 120/90 O2 Sat by Pulse 98 98 Oximetry 04/23/21 04/23/21 04/23/21 04:30 05:00 05:15 Temperature Pulse Rate 79 83 84 Pulse Rate [ From Monitor] Respiratory 19 14 Rate Blood Pressure 172/102 201/148 192/130 O2 Sat by Pulse 98 97 Oximetry 05/04/23/21 04/23/21 05:30 06:00 06:30 Temperature Pulse Rate 75 78 80 Pulse Rate [ From Monitor] Respiratory 21 18 18 Rate Blood Pressure 192/130 175/70 172/85 O2 Sat by Pulse 98 97 98 Oximetry 04/23/21 04/23/21 04/23/21 07:00 07:30 08:00 Temperature 98.2 F Pulse Rate 75 75 84 Pulse Rate [ From Monitor] Respiratory 21 20 22 Rate Blood Pressure 175/87 160/67 172/83 O2 Sat by Pulse 98 98 98 Oximetry 04/23/21 04/23/21 04/23/21 08:30 08:45 09:00 Temperature Pulse Rate 83 85 Pulse Rate [ From Monitor] Respiratory 21 22 Rate Blood Pressure 165/85 168/70 O2 Sat by Pulse 97 98 99 Oximetry 04/23/21 04/23/21 04/23/21 09:31 10:01 10:05 Temperature Pulse Rate 88 87 85 Pulse Rate [ From Monitor] Respiratory 22 22 Rate Blood Pressure 176/75 167/78 165/78 O2 Sat by Pulse 99 98 Oximetry 04/23/21 04/23/21 04/23/21 10:31 11:01 11:31 Temperature Pulse Rate 81 69 72 Pulse Rate [ From Monitor] Respiratory 19 19 20 Rate Blood Pressure 166/88 179/90 184/58 O2 Sat by Pulse 99 100 100 Oximetry 04/23/21 04/23/21 04/23/21 12:00 12:01 12:31 Temperature 98.8 F Pulse Rate 72 74 Pulse Rate [ From Monitor] Respiratory 19 20 Rate Blood Pressure 171/65 131/74 O2 Sat by Pulse 100 100 Oximetry 04/23/21 13:01 Temperature Pulse Rate 75 Pulse Rate [ From Monitor] Respiratory 21 Rate Blood Pressure 131/74 O2 Sat by Pulse 100 Oximetry Constitutional: no acute distress, alert, other Eyes: non-icteric (Patient obese and having mild respiratory distress at rest) ENT: oropharynx moist, other (mild stridorous sounds) Neck: supple, no lymphadenopathy, no JVD, other (large circumference) Effort: mildly labored Ascultation: Bilateral: diminished breath sounds, rhonchi (scant), other (mild stridorous sounds) Percussion: Bilateral: not dull Cardiovascular: regular rate and rhythm Gastrointestinal: normoactive bowel sounds Integumentary: normal Extremities: no cyanosis, no edema, pulses normal, no ischemia or petechiae Neurologic: non-focal exam (grossly with intermittent spontaneous movement to extremities but ? mild posturing (decerebrate)), pupils equal and round, CN II- XII normal Psychiatric: mood appropriate, affect normal CBC and BMP: 04/22/21 08:00 04/23/21 07:02 ABG, PT/INR, D-dimer: ABG ABG pH 7.526 (7.320-7.450) H 04/20/21 02:56 POC ABG pCO2 35.7 mmHg (32.0-48.0) 04/20/21 02:56 POC ABG pO2 105.1 mmHg (83-108) 04/20/21 02:56 POC ABG HCO3 28.9 04/20/21 02:56 ABG O2 Saturation 98.2 (0-100) 04/20/21 02:56 PT/INR, D-dimer PT 12.2 Sec. (12.2-14.9) 04/15/21 17:20 INR 0.91 (0.87-1.13) 04/15/21 17:20 Abnormal lab findings: Abnormal Labs 04/15/21 04/15/21 04/15/21 17:20 17:20 17:20 WBC 11.2 H RBC Hct 43.0 H MCV RDW 15.3 H Plt Count Lymph % (Auto) 12.8 L Seg Neutrophils % 82.4 H Seg Neuts % (Manual) Lymphocytes % (Manual) Monocytes % (Manual) Seg Neutrophils # 9.3 H Seg Neutrophils # Man Lymphocytes # (Manual) Monocytes # (Manual) ABG pH POC ABG pCO2 POC ABG pO2 ABG Hemoglobin ABG Oxyhemoglobin ABG Sodium ABG Potassium ABG Chloride ABG Glucose Carboxyhemoglobin Sodium 129 L Potassium 7.1 H* Chloride 91.9 L BUN 35 H Creatinine 2.8 H Glucose POC Glucose Calcium Phosphorus Magnesium AST 69 H Total Creatine Kinase 1000 H CK-MB (CK-2) Troponin T Albumin HDL Cholesterol TSH Free T3 Index Arterial Blood Glucose Arterial Blood Ionized Calcium Urine pH Urine WBC (Auto) Urine Creatinine Acetaminophen 04/15/21 04/15/21 04/15/21 17:20 17:20 20:49 WBC RBC Hct MCV RDW Plt Count Lymph % (Auto) Seg Neutrophils % Seg Neuts % (Manual) Lymphocytes % (Manual) Monocytes % (Manual) Seg Neutrophils # Seg Neutrophils # Man Lymphocytes # (Manual) Monocytes # (Manual) ABG pH 7.557 H POC ABG pCO2 30.0 L POC ABG pO2 493.3 H ABG Hemoglobin ABG Oxyhemoglobin 99.0 H ABG Sodium 131.5 L ABG Potassium 4.7 H ABG Chloride 94.0 L ABG Glucose 218 H Carboxyhemoglobin Sodium Potassium Chloride BUN Creatinine Glucose POC Glucose Calcium Phosphorus Magnesium AST Total Creatine Kinase CK-MB (CK-2) Troponin T Albumin HDL Cholesterol TSH 14.190 H Free T3 Index Arterial Blood Glucose 218 H Arterial Blood Ionized Calcium 5.4 H Urine pH Urine WBC (Auto) Urine Creatinine Acetaminophen 5.0 L 04/15/21 04/15/21 04/16/21 21:23 23:15 00:09 WBC RBC Hct MCV RDW Plt Count Lymph % (Auto) Seg Neutrophils % Seg Neuts % (Manual) Lymphocytes % (Manual) Monocytes % (Manual) Seg Neutrophils # Seg Neutrophils # Man Lymphocytes # (Manual) Monocytes # (Manual) ABG pH POC ABG pCO2 POC ABG pO2 ABG Hemoglobin ABG Oxyhemoglobin ABG Sodium ABG Potassium ABG Chloride ABG Glucose Carboxyhemoglobin Sodium Potassium Chloride BUN Creatinine Glucose POC Glucose 173 H 207 H Calcium Phosphorus Magnesium AST Total Creatine Kinase CK-MB (CK-2) Troponin T Albumin HDL Cholesterol TSH Free T3 Index Arterial Blood Glucose Arterial Blood Ionized Calcium Urine pH 9.0 H Urine WBC (Auto) Urine Creatinine Acetaminophen 04/16/21 04/16/21 04/16/21 00:12 00:19 03:43 WBC RBC Hct MCV RDW Plt Count Lymph % (Auto) Seg Neutrophils % Seg Neuts % (Manual) Lymphocytes % (Manual) Monocytes % (Manual) Seg Neutrophils # Seg Neutrophils # Man Lymphocytes # (Manual) Monocytes # (Manual) ABG pH 7.461 H POC ABG pCO2 POC ABG pO2 ABG Hemoglobin ABG Oxyhemoglobin ABG Sodium 126.8 L ABG Potassium 5.4 H ABG Chloride 90.0 L ABG Glucose 325 H Carboxyhemoglobin Sodium Potassium 6.7 H* Chloride BUN Creatinine Glucose POC Glucose Calcium Phosphorus Magnesium AST Total Creatine Kinase CK-MB (CK-2) Troponin T Albumin HDL Cholesterol TSH Free T3 Index Arterial Blood Glucose 325 H Arterial Blood Ionized Calcium Urine pH Urine WBC (Auto) Urine Creatinine 24.4 H Acetaminophen 04/16/21 04/16/21 04/16/21 03:55 05:02 05:02 WBC 21.2 H RBC Hct 43.4 H MCV 98 H RDW Plt Count Lymph % (Auto) Seg Neutrophils % Seg Neuts % (Manual) 84.0 H Lymphocytes % (Manual) 2.0 L Monocytes % (Manual) 10.0 H Seg Neutrophils # Seg Neutrophils # Man 17.8 H Lymphocytes # (Manual) 0.4 L Monocytes # (Manual) 2.1 H ABG pH POC ABG pCO2 POC ABG pO2 ABG Hemoglobin ABG Oxyhemoglobin ABG Sodium ABG Potassium ABG Chloride ABG Glucose Carboxyhemoglobin Sodium 131 L Potassium 5.9 H Chloride 88.7 L BUN 34 H Creatinine 2.9 H Glucose 249 H POC Glucose 391 H Calcium 10.4 H Phosphorus Magnesium AST 65 H Total Creatine Kinase CK-MB (CK-2) Troponin T Albumin 3.8 L HDL Cholesterol TSH Free T3 Index Arterial Blood Glucose Arterial Blood Ionized Calcium Urine pH Urine WBC (Auto) Urine Creatinine Acetaminophen 04/16/21 04/16/21 04/16/21 11:34 16:09 18:15 WBC RBC Hct MCV RDW Plt Count Lymph % (Auto) Seg Neutrophils % Seg Neuts % (Manual) Lymphocytes % (Manual) Monocytes % (Manual) Seg Neutrophils # Seg Neutrophils # Man Lymphocytes # (Manual) Monocytes # (Manual) ABG pH POC ABG pCO2 POC ABG pO2 ABG Hemoglobin ABG Oxyhemoglobin ABG Sodium ABG Potassium ABG Chloride ABG Glucose Carboxyhemoglobin Sodium Potassium Chloride BUN Creatinine Glucose POC Glucose 382 H 300 H 287 H Calcium Phosphorus Magnesium AST Total Creatine Kinase CK-MB (CK-2) Troponin T Albumin HDL Cholesterol TSH Free T3 Index Arterial Blood Glucose Arterial Blood Ionized Calcium Urine pH Urine WBC (Auto) Urine Creatinine Acetaminophen 04/16/21 04/16/21 04/16/21 19:01 19:01 19:01 WBC RBC Hct MCV RDW Plt Count Lymph % (Auto) Seg Neutrophils % Seg Neuts % (Manual) Lymphocytes % (Manual) Monocytes % (Manual) Seg Neutrophils # Seg Neutrophils # Man Lymphocytes # (Manual) Monocytes # (Manual) ABG pH POC ABG pCO2 POC ABG pO2 ABG Hemoglobin ABG Oxyhemoglobin ABG Sodium ABG Potassium ABG Chloride ABG Glucose Carboxyhemoglobin Sodium 125 L Potassium 5.5 H 5.6 H Chloride 84.5 L BUN 37 H Creatinine 3.5 H Glucose 236 H POC Glucose Calcium Phosphorus Magnesium AST Total Creatine Kinase CK-MB (CK-2) Troponin T Albumin HDL Cholesterol TSH Free T3 Index 1.1 L Arterial Blood Glucose Arterial Blood Ionized Calcium Urine pH Urine WBC (Auto) Urine Creatinine Acetaminophen 04/16/21 04/17/21 04/17/21 23:48 03:09 05:04 WBC RBC Hct MCV RDW Plt Count Lymph % (Auto) Seg Neutrophils % Seg Neuts % (Manual) Lymphocytes % (Manual) Monocytes % (Manual) Seg Neutrophils # Seg Neutrophils # Man Lymphocytes # (Manual) Monocytes # (Manual) ABG pH 7.518 H POC ABG pCO2 POC ABG pO2 ABG Hemoglobin ABG Oxyhemoglobin ABG Sodium 126.4 L ABG Potassium ABG Chloride 89.0 L ABG Glucose 200 H Carboxyhemoglobin Sodium 129 L Potassium Chloride 86.1 L BUN 39 H Creatinine 3.5 H Glucose 202 H POC Glucose 243 H Calcium Phosphorus Magnesium AST Total Creatine Kinase 750 H CK-MB (CK-2) Troponin T 0.119 H* D Albumin HDL Cholesterol 61 H TSH Free T3 Index Arterial Blood Glucose 200 H Arterial Blood Ionized Calcium 4.4 L Urine pH Urine WBC (Auto) Urine Creatinine Acetaminophen 04/17/21 04/17/21 04/17/21 06:14 11:55 15:35 WBC RBC Hct MCV RDW Plt Count Lymph % (Auto) Seg Neutrophils % Seg Neuts % (Manual) Lymphocytes % (Manual) Monocytes % (Manual) Seg Neutrophils # Seg Neutrophils # Man Lymphocytes # (Manual) Monocytes # (Manual) ABG pH POC ABG pCO2 POC ABG pO2 ABG Hemoglobin ABG Oxyhemoglobin ABG Sodium ABG Potassium ABG Chloride ABG Glucose Carboxyhemoglobin Sodium Potassium Chloride BUN Creatinine Glucose POC Glucose 208 H 276 H Calcium Phosphorus Magnesium AST Total Creatine Kinase 615 H CK-MB (CK-2) 9.1 H Troponin T Albumin HDL Cholesterol TSH Free T3 Index Arterial Blood Glucose Arterial Blood Ionized Calcium Urine pH Urine WBC (Auto) Urine Creatinine Acetaminophen 04/17/21 04/17/21 04/18/21 15:35 17:07 00:01 WBC 17.1 H RBC Hct MCV RDW Plt Count Lymph % (Auto) Seg Neutrophils % Seg Neuts % (Manual) Lymphocytes % (Manual) Monocytes % (Manual) Seg Neutrophils # Seg Neutrophils # Man Lymphocytes # (Manual) Monocytes # (Manual) ABG pH POC ABG pCO2 POC ABG pO2 ABG Hemoglobin ABG Oxyhemoglobin ABG Sodium ABG Potassium ABG Chloride ABG Glucose Carboxyhemoglobin Sodium Potassium Chloride BUN Creatinine Glucose POC Glucose 148 H 192 H Calcium Phosphorus Magnesium AST Total Creatine Kinase CK-MB (CK-2) Troponin T Albumin HDL Cholesterol TSH Free T3 Index Arterial Blood Glucose Arterial Blood Ionized Calcium Urine pH Urine WBC (Auto) Urine Creatinine Acetaminophen 04/18/21 04/18/21 04/18/21 03:00 05:24 05:34 WBC 15.3 H RBC 3.34 L Hct MCV RDW 15.3 H Plt Count Lymph % (Auto) Seg Neutrophils % Seg Neuts % (Manual) Lymphocytes % (Manual) Monocytes % (Manual) Seg Neutrophils # Seg Neutrophils # Man Lymphocytes # (Manual) Monocytes # (Manual) ABG pH 7.497 H POC ABG pCO2 POC ABG pO2 77.7 L ABG Hemoglobin 10.4 L ABG Oxyhemoglobin ABG Sodium 129.7 L ABG Potassium 2.8 L ABG Chloride 92.0 L ABG Glucose 134 H Carboxyhemoglobin 0.3 L Sodium Potassium Chloride BUN Creatinine Glucose POC Glucose 162 H Calcium Phosphorus Magnesium AST Total Creatine Kinase CK-MB (CK-2) Troponin T Albumin HDL Cholesterol TSH Free T3 Index Arterial Blood Glucose 134 H Arterial Blood Ionized Calcium 4.3 L Urine pH Urine WBC (Auto) Urine Creatinine Acetaminophen 04/18/21 04/18/21 04/18/21 05:34 05:43 09:11 WBC RBC Hct MCV RDW Plt Count Lymph % (Auto) Seg Neutrophils % Seg Neuts % (Manual) Lymphocytes % (Manual) Monocytes % (Manual) Seg Neutrophils # Seg Neutrophils # Man Lymphocytes # (Manual) Monocytes # (Manual) ABG pH POC ABG pCO2 POC ABG pO2 ABG Hemoglobin ABG Oxyhemoglobin ABG Sodium ABG Potassium ABG Chloride ABG Glucose Carboxyhemoglobin Sodium 134 L Potassium 3.0 L D Chloride 93.5 L BUN 42 H Creatinine 3.1 H Glucose 152 H POC Glucose Calcium Phosphorus Magnesium 1.40 L AST Total Creatine Kinase 427 H CK-MB (CK-2) Troponin T 0.081 H D Albumin HDL Cholesterol TSH Free T3 Index Arterial Blood Glucose Arterial Blood Ionized Calcium Urine pH Urine WBC (Auto) 34.0 H Urine Creatinine Acetaminophen 04/18/21 04/18/21 04/18/21 11:34 17:24 23:18 WBC RBC Hct MCV RDW Plt Count Lymph % (Auto) Seg Neutrophils % Seg Neuts % (Manual) Lymphocytes % (Manual) Monocytes % (Manual) Seg Neutrophils # Seg Neutrophils # Man Lymphocytes # (Manual) Monocytes # (Manual) ABG pH POC ABG pCO2 POC ABG pO2 ABG Hemoglobin ABG Oxyhemoglobin ABG Sodium ABG Potassium ABG Chloride ABG Glucose Carboxyhemoglobin Sodium Potassium Chloride BUN Creatinine Glucose POC Glucose 170 H 151 H 182 H Calcium Phosphorus Magnesium AST Total Creatine Kinase CK-MB (CK-2) Troponin T Albumin HDL Cholesterol TSH Free T3 Index Arterial Blood Glucose Arterial Blood Ionized Calcium Urine pH Urine WBC (Auto) Urine Creatinine Acetaminophen 04/19/21 04/19/21 04/19/21 04:09 05:19 07:30 WBC 14.8 H RBC 3.20 L Hct MCV 98 H RDW Plt Count 137 L Lymph % (Auto) Seg Neutrophils % Seg Neuts % (Manual) Lymphocytes % (Manual) Monocytes % (Manual) Seg Neutrophils # Seg Neutrophils # Man Lymphocytes # (Manual) Monocytes # (Manual) ABG pH 7.476 H POC ABG pCO2 POC ABG pO2 79.4 L ABG Hemoglobin 10.7 L ABG Oxyhemoglobin ABG Sodium 131.2 L ABG Potassium 2.8 L ABG Chloride 94.0 L ABG Glucose 209 H Carboxyhemoglobin 0.3 L Sodium Potassium Chloride BUN Creatinine Glucose POC Glucose 204 H Calcium Phosphorus Magnesium AST Total Creatine Kinase CK-MB (CK-2) Troponin T Albumin HDL Cholesterol TSH Free T3 Index Arterial Blood Glucose 209 H Arterial Blood Ionized Calcium Urine pH Urine WBC (Auto) Urine Creatinine Acetaminophen 04/19/21 04/19/21 04/19/21 07:30 10:35 11:48 WBC RBC Hct MCV RDW Plt Count Lymph % (Auto) Seg Neutrophils % Seg Neuts % (Manual) Lymphocytes % (Manual) Monocytes % (Manual) Seg Neutrophils # Seg Neutrophils # Man Lymphocytes # (Manual) Monocytes # (Manual) ABG pH 7.464 H POC ABG pCO2 POC ABG pO2 81.8 L ABG Hemoglobin 10.8 L ABG Oxyhemoglobin ABG Sodium 129.6 L ABG Potassium ABG Chloride 95.0 L ABG Glucose 238 H Carboxyhemoglobin Sodium 133 L Potassium 2.8 L* Chloride 94.4 L BUN 43 H Creatinine 2.7 H Glucose 255 H POC Glucose 208 H Calcium 8.0 L Phosphorus Magnesium AST Total Creatine Kinase CK-MB (CK-2) Troponin T 0.060 H D Albumin HDL Cholesterol TSH Free T3 Index Arterial Blood Glucose 238 H Arterial Blood Ionized Calcium Urine pH Urine WBC (Auto) Urine Creatinine Acetaminophen 04/19/21 04/19/21 04/20/21 20:40 23:04 02:56 WBC RBC Hct MCV RDW Plt Count Lymph % (Auto) Seg Neutrophils % Seg Neuts % (Manual) Lymphocytes % (Manual) Monocytes % (Manual) Seg Neutrophils # Seg Neutrophils # Man Lymphocytes # (Manual) Monocytes # (Manual) ABG pH 7.526 H POC ABG pCO2 POC ABG pO2 ABG Hemoglobin 10.5 L ABG Oxyhemoglobin ABG Sodium 133.5 L ABG Potassium ABG Chloride ABG Glucose 157 H Carboxyhemoglobin 0.3 L Sodium Potassium 3.4 L D Chloride BUN Creatinine Glucose POC Glucose 173 H Calcium Phosphorus Magnesium AST Total Creatine Kinase CK-MB (CK-2) Troponin T Albumin HDL Cholesterol TSH Free T3 Index Arterial Blood Glucose 157 H Arterial Blood Ionized Calcium Urine pH Urine WBC (Auto) Urine Creatinine Acetaminophen 04/20/21 04/20/21 04/20/21 03:32 03:32 03:46 WBC 13.2 H RBC 3.18 L Hct MCV RDW Plt Count Lymph % (Auto) Seg Neutrophils % Seg Neuts % (Manual) Lymphocytes % (Manual) Monocytes % (Manual) Seg Neutrophils # Seg Neutrophils # Man Lymphocytes # (Manual) Monocytes # (Manual) ABG pH POC ABG pCO2 POC ABG pO2 ABG Hemoglobin ABG Oxyhemoglobin ABG Sodium ABG Potassium ABG Chloride ABG Glucose Carboxyhemoglobin Sodium 135 L Potassium Chloride 96.7 L BUN 40 H Creatinine 2.3 H Glucose 142 H POC Glucose Calcium Phosphorus 2.10 L Magnesium AST Total Creatine Kinase CK-MB (CK-2) Troponin T 0.065 H Albumin HDL Cholesterol TSH Free T3 Index Arterial Blood Glucose Arterial Blood Ionized Calcium Urine pH Urine WBC (Auto) Urine Creatinine Acetaminophen 04/20/21 04/20/21 04/20/21 05:42 11:50 17:09 WBC RBC Hct MCV RDW Plt Count Lymph % (Auto) Seg Neutrophils % Seg Neuts % (Manual) Lymphocytes % (Manual) Monocytes % (Manual) Seg Neutrophils # Seg Neutrophils # Man Lymphocytes # (Manual) Monocytes # (Manual) ABG pH POC ABG pCO2 POC ABG pO2 ABG Hemoglobin ABG Oxyhemoglobin ABG Sodium ABG Potassium ABG Chloride ABG Glucose Carboxyhemoglobin Sodium Potassium Chloride BUN Creatinine Glucose POC Glucose 160 H 194 H 153 H Calcium Phosphorus Magnesium AST Total Creatine Kinase CK-MB (CK-2) Troponin T Albumin HDL Cholesterol TSH Free T3 Index Arterial Blood Glucose Arterial Blood Ionized Calcium Urine pH Urine WBC (Auto) Urine Creatinine Acetaminophen 04/20/21 04/21/21 04/21/21 23:18 05:26 05:51 WBC RBC 3.20 L Hct MCV 99 H RDW 15.3 H Plt Count Lymph % (Auto) Seg Neutrophils % Seg Neuts % (Manual) Lymphocytes % (Manual) Monocytes % (Manual) Seg Neutrophils # Seg Neutrophils # Man Lymphocytes # (Manual) Monocytes # (Manual) ABG pH POC ABG pCO2 POC ABG pO2 ABG Hemoglobin ABG Oxyhemoglobin ABG Sodium ABG Potassium ABG Chloride ABG Glucose Carboxyhemoglobin Sodium Potassium Chloride BUN Creatinine Glucose POC Glucose 162 H 164 H Calcium Phosphorus Magnesium AST Total Creatine Kinase CK-MB (CK-2) Troponin T Albumin HDL Cholesterol TSH Free T3 Index Arterial Blood Glucose Arterial Blood Ionized Calcium Urine pH Urine WBC (Auto) Urine Creatinine Acetaminophen 04/21/21 04/21/21 04/21/21 05:51 12:12 17:13 WBC RBC Hct MCV RDW Plt Count Lymph % (Auto) Seg Neutrophils % Seg Neuts % (Manual) Lymphocytes % (Manual) Monocytes % (Manual) Seg Neutrophils # Seg Neutrophils # Man Lymphocytes # (Manual) Monocytes # (Manual) ABG pH POC ABG pCO2 POC ABG pO2 ABG Hemoglobin ABG Oxyhemoglobin ABG Sodium ABG Potassium ABG Chloride ABG Glucose Carboxyhemoglobin Sodium Potassium Chloride 96.6 L BUN 42 H Creatinine 2.1 H Glucose 171 H POC Glucose 167 H 178 H Calcium Phosphorus Magnesium AST Total Creatine Kinase CK-MB (CK-2) Troponin T Albumin HDL Cholesterol TSH Free T3 Index Arterial Blood Glucose Arterial Blood Ionized Calcium Urine pH Urine WBC (Auto) Urine Creatinine Acetaminophen 04/21/21 04/22/21 04/22/21 23:42 05:29 08:00 WBC 12.9 H RBC Hct MCV RDW Plt Count Lymph % (Auto) Seg Neutrophils % Seg Neuts % (Manual) Lymphocytes % (Manual) Monocytes % (Manual) Seg Neutrophils # Seg Neutrophils # Man Lymphocytes # (Manual) Monocytes # (Manual) ABG pH POC ABG pCO2 POC ABG pO2 ABG Hemoglobin ABG Oxyhemoglobin ABG Sodium ABG Potassium ABG Chloride ABG Glucose Carboxyhemoglobin Sodium Potassium Chloride BUN Creatinine Glucose POC Glucose 253 H 208 H Calcium Phosphorus Magnesium AST Total Creatine Kinase CK-MB (CK-2) Troponin T Albumin HDL Cholesterol TSH Free T3 Index Arterial Blood Glucose Arterial Blood Ionized Calcium Urine pH Urine WBC (Auto) Urine Creatinine Acetaminophen 04/22/21 04/22/21 04/22/21 08:00 12:06 17:34 WBC RBC Hct MCV RDW Plt Count Lymph % (Auto) Seg Neutrophils % Seg Neuts % (Manual) Lymphocytes % (Manual) Monocytes % (Manual) Seg Neutrophils # Seg Neutrophils # Man Lymphocytes # (Manual) Monocytes # (Manual) ABG pH POC ABG pCO2 POC ABG pO2 ABG Hemoglobin ABG Oxyhemoglobin ABG Sodium ABG Potassium ABG Chloride ABG Glucose Carboxyhemoglobin Sodium Potassium Chloride BUN 47 H Creatinine 1.9 H Glucose 252 H POC Glucose 298 H 259 H Calcium Phosphorus Magnesium AST Total Creatine Kinase CK-MB (CK-2) Troponin T Albumin HDL Cholesterol TSH Free T3 Index Arterial Blood Glucose Arterial Blood Ionized Calcium Urine pH Urine WBC (Auto) Urine Creatinine Acetaminophen 04/22/21 04/23/21 04/23/21 23:01 05:08 07:02 WBC RBC Hct MCV RDW Plt Count Lymph % (Auto) Seg Neutrophils % Seg Neuts % (Manual) Lymphocytes % (Manual) Monocytes % (Manual) Seg Neutrophils # Seg Neutrophils # Man Lymphocytes # (Manual) Monocytes # (Manual) ABG pH POC ABG pCO2 POC ABG pO2 ABG Hemoglobin ABG Oxyhemoglobin ABG Sodium ABG Potassium ABG Chloride ABG Glucose Carboxyhemoglobin Sodium Potassium Chloride 97.7 L BUN 57 H Creatinine 2.0 H Glucose 253 H POC Glucose 280 H 223 H Calcium Phosphorus Magnesium AST Total Creatine Kinase CK-MB (CK-2) Troponin T Albumin HDL Cholesterol TSH Free T3 Index Arterial Blood Glucose Arterial Blood Ionized Calcium Urine pH Urine WBC (Auto) Urine Creatinine Acetaminophen 04/23/21 11:57 WBC RBC Hct MCV RDW Plt Count Lymph % (Auto) Seg Neutrophils % Seg Neuts % (Manual) Lymphocytes % (Manual) Monocytes % (Manual) Seg Neutrophils # Seg Neutrophils # Man Lymphocytes # (Manual) Monocytes # (Manual) ABG pH POC ABG pCO2 POC ABG pO2 ABG Hemoglobin ABG Oxyhemoglobin ABG Sodium ABG Potassium ABG Chloride ABG Glucose Carboxyhemoglobin Sodium Potassium Chloride BUN Creatinine Glucose POC Glucose 310 H Calcium Phosphorus Magnesium AST Total Creatine Kinase CK-MB (CK-2) Troponin T Albumin HDL Cholesterol TSH Free T3 Index Arterial Blood Glucose Arterial Blood Ionized Calcium Urine pH Urine WBC (Auto) Urine Creatinine Acetaminophen Chest x-ray: report reviewed, image reviewed Additional Studies: CHEST 1 VIEW 04/18/2021 2:13 AM INDICATION / CLINICAL INFORMATION: follow up respiratory failure. COMPARISON: One view of the chest from 04/17/2021. FINDINGS: SUPPORT DEVICES: Unchanged. HEART / MEDIASTINUM: Stable. LUNGS / PLEURA: Mildly reduced lung volumes are again seen with probable bibasilar atelectasis. No significant pleural effusion. No pneumothorax. ADDITIONAL FINDINGS: No significant additional findings. IMPRESSION: Stable appearance of the chest. Allied health notes reviewed: nursing
--- NOTE | 2021-04-23 14:20 | Progress Note ---
Assessment and Plan Await CXR. Otherwise continue present mgmt per Primary teams. Would like to resume medical therapies for underlying severe multi-vessel CAD (bASA & Plavix) if no objections from a Neuro standpoint or other contraindications. Pt seen in conjunction with Dr. Sue, who agrees with the assessment and plan of care. - Patient Problems (1) Acute encephalopathy Current Visit: Yes Status: Acute (2) Bradycardia Current Visit: Yes Status: Resolved (3) UTI (urinary tract infection) Current Visit: Yes Status: Acute (4) Acute kidney injury superimposed on CKD Current Visit: Yes Status: Acute (5) CAD (coronary artery disease) Current Visit: Yes Status: Chronic Qualifiers: Coronary Disease-Associated Artery/Lesion type: [place] artery [place] vs. transplanted heart: [place] heart (6) HTN (hypertension) Current Visit: Yes Status: Chronic Qualifiers: Hypertension type: essential hypertension Qualified Code(s): I10 - Essential (primary) hypertension (7) HLD (hyperlipidemia) Current Visit: Yes Status: Chronic Qualifiers: Hyperlipidemia type: mixed hyperlipidemia Qualified Code(s): E78.2 - Mixed hyperlipidemia (8) DM2 (diabetes mellitus, type 2) Current Visit: Yes Status: Chronic (9) Hypothyroidism Current Visit: Yes Status: Chronic Subjective Date of service: 04/23/21 Principal diagnosis: Acute Encephalopathy Interval history: No acute events reported overnight. Pt appears uncomfortable, grunting upon assessment, but no acute distress. Tele reviewed - SR 70-80s w/PACs. Objective Last Vital Signs Temp 98.8 F 04/23/21 12:00 Pulse 75 04/23/21 13:01 Resp 21 04/23/21 13:01 BP 131/74 04/23/21 13:01 Pulse Ox 100 04/23/21 13:01 - Physical Examination General: No Apparent Distress HEENT: Positive: Normocephaly, Mucus Membranes Moist Neck: Positive: neck supple, trachea midline Cardiac: Positive: Reg Rate and Rhythm, S1/S2 Lungs: Positive: Other (coarse anteriorly) Neuro: Positive: Other (unresponsive) Abdomen: Positive: Unremarkable Skin: Negative: Rash Extremities: Present: upper extr. pulses, lower extr. pulses, edema - Labs and Meds Comprehensive Metabolic Panel 04/23/21 Range/Units 07:02 Sodium 138 (137-145) mmol/L Potassium 4.2 (3.6-5.0) mmol/L Chloride 97.7 L (98-107) mmol/L Carbon Dioxide 28 (22-30) mmol/L BUN 57 H (7-17) mg/dL Creatinine 2.0 H (0.6-1.2) mg/dL Glucose 253 H (65-100) mg/dL Calcium 10.1 (8.4-10.2) mg/dL - Imaging and Cardiology EKG: report reviewed, image reviewed Echo: report reviewed (04/15/2021 - EF 45-50%, mild concentric LVH, no LV thrombus, no significant valvular abnormalities) Cardiac cath: report reviewed (08/2017 - multivessal CAD (pLAD 70%, mid-distal LAD 70%, diag ostium 80%, Cfx/obtuse donovan 60%, RCA 80%, EF 60%, LVEDP 12mmHg) - Telemetry EKG Rhythm: Sinus Rhythm - EKG Supraventricular dysrhythmia: atrial fibrillation AV and intraventricular conduction: left bundle branch block - Allied health notes Allied health notes reviewed: nursing
--- NOTE | 2021-04-23 15:12 | Progress Note ---
Assessment and Plan 1. Acute kidney injury: Likely vasomotor ROJELIO. ATN likely. Renal US negative for hydro. Baseline renal function is unknown. Monitor renal function. Non-oliguric. Creatinine leveled off, around 2. Avoid nephrotoxic agents. Meds dosage based on GFR. 2. FEN: Hypokalemia, K level is better, monitor. Hyponatremia, improved. Monitor lytes and volume status. 3. Acute hypoxemic respiratory failure: S/p extubated, on NC O2. 4. Acute encephalopathy: Hypoglycemia. MRI brain negative. 5. [place] UTI. 6. Hypertension. 7. DM type 2. 8. Mild rhabdomyolysis. 9. Mildly complex R renal cyst. Subjective: Patient was seen and examined at the bedside. Examination: General appearance: well-developed, appears stated age, no distress, obese, NG tube HEENT: BRUCE, atraumatic Neck: trachea midline Respiratory: Coarse breath sounds heard Heart: S1S2, no murmur Abdomen: soft, obese, bowel sounds heard, NT Integumentary: no obvious rash Neurologic: lethargic, non-verbal, not following any command Ext: no edema noted Subjective Date of service: 04/23/21 Principal diagnosis: Acute Encephalopathy Objective - Vital Signs Vital signs: Vital Signs - 12hr 04/23/21 04/23/21 04/23/21 03:30 03:35 04:00 Temperature 98.4 F Pulse Rate 76 83 Pulse Rate [ 75 From Monitor] Respiratory 20 22 Rate Blood Pressure 110/81 120/90 O2 Sat by Pulse 98 98 Oximetry 04/23/21 04/23/21 04/23/21 04:30 05:00 05:15 Temperature Pulse Rate 79 83 84 Pulse Rate [ From Monitor] Respiratory 19 14 Rate Blood Pressure 172/102 201/148 192/130 O2 Sat by Pulse 98 97 Oximetry 04/23/21 04/23/21 04/23/21 05:30 06:00 06:30 Temperature Pulse Rate 75 78 80 Pulse Rate [ From Monitor] Respiratory 21 18 18 Rate Blood Pressure 192/130 175/70 172/85 O2 Sat by Pulse 98 97 98 Oximetry 04/23/21 04/23/21 04/23/21 07:00 07:30 08:00 Temperature 98.2 F Pulse Rate 75 75 84 Pulse Rate [ From Monitor] Respiratory 21 20 22 Rate Blood Pressure 175/87 160/67 172/83 O2 Sat by Pulse 98 98 98 Oximetry 04/23/21 04/23/21 04/23/21 08:30 08:45 09:00 Temperature Pulse Rate 83 85 Pulse Rate [ From Monitor] Respiratory 21 22 Rate Blood Pressure 165/85 168/70 O2 Sat by Pulse 97 98 99 Oximetry 04/23/21 04/23/21 04/23/21 09:31 10:01 10:05 Temperature Pulse Rate 88 87 85 Pulse Rate [ From Monitor] Respiratory 22 22 Rate Blood Pressure 176/75 167/78 165/78 O2 Sat by Pulse 99 98 Oximetry 04/23/21 04/23/21 04/23/21 10:31 11:01 11:31 Temperature Pulse Rate 81 69 72 Pulse Rate [ From Monitor] Respiratory 19 19 20 Rate Blood Pressure 166/88 179/90 184/58 O2 Sat by Pulse 99 100 100 Oximetry 04/23/21 04/23/21 04/23/21 12:00 12:01 12:31 Temperature 98.8 F Pulse Rate 72 72 74 Pulse Rate [ From Monitor] Respiratory 19 20 Rate Blood Pressure 171/65 131/74 O2 Sat by Pulse 100 100 Oximetry 04/23/21 04/23/21 04/23/21 13:01 13:31 14:01 Temperature Pulse Rate 75 72 82 Pulse Rate [ From Monitor] Respiratory 21 19 22 Rate Blood Pressure 131/74 161/62 130/84 O2 Sat by Pulse 100 96 98 Oximetry 04/23/21 14:31 Temperature Pulse Rate 78 Pulse Rate [ From Monitor] Respiratory 14 Rate Blood Pressure 130/84 O2 Sat by Pulse 97 Oximetry - Lab 04/22/21 08:00 04/23/21 07:02 Most recent lab results ABG pH 7.526 (7.320-7.450) H 04/20/21 02:56 ABG O2 Saturation 98.2 (0-100) 04/20/21 02:56 Calcium 10.1 mg/dL (8.4-10.2) 04/23/21 07:02 Phosphorus 2.60 mg/dL (2.5-4.5) 04/22/21 08:00 Magnesium 2.10 mg/dL (1.7-2.3) 04/23/21 07:02 Urine Creatinine 24.4 mg/dL (0.1-20.0) H 04/16/21 00:12 Urine Sodium 97 mmol/L 04/16/21 00:12 Medications & Allergies - Medications Allergies/Adverse Reactions: Allergies No Known Allergies Allergy (Unverified 04/15/21 17:41) Home Medications: Home Medications Medication Instructions Recorded Confirmed Last Taken Type Betaxolol HCl [Betoptic S 0.25% 1 drop OU BID 04/16/21 04/16/21 Unknown History SUSP] Bimatoprost [Lumigan 0.01%] 1 drop OU QPM 04/16/21 04/16/21 Unknown History Brimonidine Tartrate [Brimonidine 5 ml OU BID 04/16/21 04/16/21 Unknown History Tartrate 0.2%] Furosemide [Lasix TAB] 40 mg PO QDAY 04/16/21 04/16/21 Unknown History Gabapentin [Neurontin] 300 mg PO Q8HR 04/16/21 04/16/21 Unknown History HYDROcodone/APAP 10-325 [[place] 1 each PO Q6HR PRN 04/16/21 04/16/21 Unknown History 10/325] Hydralazine HCl 50 mg PO Q4HR 04/16/21 04/16/21 Unknown History Insulin Aspart Prot/Insuln Asp 52 units SQ HS 04/16/21 04/16/21 Unknown History [Novolog Mix 70-30 Flexpen] Metoprolol [Lopressor] 25 mg PO BID 04/16/21 04/16/21 Unknown History Pravastatin [Pravachol] 20 mg PO QHS 04/16/21 04/16/21 Unknown History Promethazine [Phenergan] 25 mg PO Q6HR 04/16/21 04/16/21 Unknown History allopurinoL [Zyloprim] 150 mg PO QDAY 04/16/21 04/16/21 Unknown History Active Medications: Generic Name Dose Route Start Last Admin Trade Name Freq PRN Reason Stop Dose Admin Acetaminophen 650 mg 04/15/21 19:11 04/19/21 23:33 Acetaminophen 325 Mg Tab PO 650 mg Q6H PRN Administration Pain MILD(1-3)/Fever >100.5/SEXTON Amlodipine Besylate 5 mg 04/22/21 10:00 04/23/21 10:05 Amlodipine 5 Mg Tab PO 5 mg QDAY WOLFGANG Administration Lipase/Protease/Amylase 1 each 04/16/21 12:52 Lipase 10,500/Protease 25,000/Amylase 43,750 (Units) Dr Simpson FEEDTUBE PRN PRN For Clogged Feeding Tube Bisacodyl 10 mg 04/17/21 11:01 04/17/21 13:46 Bisacodyl 10 Mg Rect Supp ND 10 mg QDAY PRN Administration Constipation Brimonidine Tartrate 1 drops 04/17/21 22:00 04/23/21 10:08 Brimonidine 0.15% Ophth Soln OU 1 drops BID WOLFGANG Administration Epinephrine 0.5 ml 04/21/21 12:56 Epinephrine Racemic 2.25% 0.5ml Nebu IH Q4HRT PRN Shortness Of Breath Famotidine 20 mg 04/17/21 10:00 04/23/21 10:05 Famotidine 20 Mg Tab PO 20 mg DAILY WOLFGANG Administration Heparin Sodium (Porcine) 5,000 unit 04/15/21 22:00 04/23/21 10:05 Heparin 5,000 Unit/1 Ml Vial SUB-Q 5,000 unit Q12HR WOLFGANG Administration Hydralazine HCl 10 mg 04/16/21 18:00 04/23/21 05:15 Hydralazine 20 Mg/1 Ml Inj IV 10 mg Q4HR PRN Administration Hypertension Hydralazine HCl 100 mg 04/21/21 14:00 04/23/21 13:25 Hydralazine 100 Mg Tab PO 100 mg TID WOLFGANG Administration Hydrophilic Ointment 1 applic 04/15/21 17:24 Lip Therapy Vaseline TP Q2HR PRN Dry Lips Propofol 1,000 mg in 100 mls @ 2.91 mls/hr 04/15/21 18:00 04/20/21 07:28 Diprivan 10 Mg/Ml IV 0 mcg/kg/min TITR WOLFGANG 0 mls/hr Titration Protocol 5 MCG/KG/MIN Insulin Glargine 20 units 04/22/21 07:58 04/23/21 10:05 Insulin Glargine 100 Units/Ml SUB-Q 20 units QAMDIAB WOLFGANG Administration Insulin Human Lispro 0 unit 04/16/21 15:00 04/23/21 13:25 Insulin Lispro 100 Unit/Ml SUB-Q 6 unit Q6HR WOLFGANG Administration Protocol Latanoprost 1 drops 04/17/21 18:00 04/22/21 18:22 Latanoprost 0.005% Ophth Soln 2.5 Ml OU 1 drops QPM WOLFGANG Administration Levothyroxine Sodium 25 mcg 04/19/21 06:00 04/23/21 05:15 Levothyroxine 25 Mcg Tab PO 25 mcg DAILY@0600 WOLFGANG Administration Methylprednisolone Sodium Succinate 30 mg 04/21/21 13:00 04/23/21 13:26 Methylprednisolone Sod Succinate 40 Mg/1 Ml Inj IV 04/24/21 12:59 30 mg Q6H WOLFGANG Administration Metoprolol Tartrate 25 mg 04/19/21 10:00 04/23/21 10:05 Metoprolol Tartrate 25 Mg Tab PO 25 mg BID WOLFGANG Administration Modafinil 100 mg 04/19/21 10:00 04/23/21 10:05 Modafinil 100 Mg Tab PO 100 mg QAM WOLFGANG Administration Multi-Ingred Cream/Lotion/Oil/Oint 1 applic 04/15/21 17:24 04/16/21 11:19 Mineral Oil/Petrolatum, White Ophth Oint 3.5 Gm OU 1 applic Q4HR PRN Administration Dry Eye(s) Pravastatin Sodium 20 mg 04/19/21 22:00 04/22/21 21:27 Pravastatin 20 Mg Tab PO 20 mg QHS WOLFGANG Administration Scopolamine 1 each 04/20/21 18:00 04/23/21 10:04 Scopolamine Transdermal Patch 72 Hr TD 1 each Q3D WOLFGANG Administration Simple Syrup 15 ml 04/16/21 12:52 Simple Syrup 15 Ml FEEDTUBE PRN PRN Hypoglycemia Simple Syrup 30 ml 04/16/21 12:52 Simple Syrup 15 Ml FEEDTUBE PRN PRN Hypoglycemia Sodium Bicarbonate 325 mg 04/16/21 12:52 Sodium Bicarbonate 325 Mg Tab FEEDTUBE PRN PRN For Clogged Feeding Tube Sodium Chloride 10 ml 04/15/21 22:00 04/23/21 10:06 Sodium Chloride 0.9% 10 Ml Flush Syringe IV 10 ml BID WOLFGANG Administration Sodium Chloride 10 ml 04/15/21 19:11 Sodium Chloride 0.9% 10 Ml Flush Syringe IV PRN PRN LINE FLUSH Timolol Maleate 1 drops 04/19/21 10:00 04/23/21 10:07 Timolol 0.5% Ophth Soln 5 Ml OU 1 drops QDAY WOLFGANG Administration
[2021-04-23] MEDS: LATANOPROST 0.005% OPHTH SOLN 2.5 ML OU SCH (18:01)
[2021-04-23] MEDS: PRAVASTATIN 20 MG TAB PO SCH (21:10)
[2021-04-24] MEDS: methylPREDNISolone Sod Succinate 40 MG/1 ML INJ IV SCH ×3 (00:51→08:50)
[2021-04-24] MEDS: hydrALAZINE 20 MG/1 ML INJ IV PRN (05:25)
[2021-04-24] MEDS: LEVOTHYROXINE 25 MCG TAB PO SCH (05:26)
[2021-04-24] MEDS: INSULIN LISPRO 100 UNIT/ML SUB-Q SCH ×3 (06:00→18:11)
[2021-04-24 06:40] LABS: Calcium 9.9 mg/dL (8.4-10.2)
[2021-04-24] MEDS: INSULIN GLARGINE 100 UNITS/ML SUB-Q SCH (08:51)
[2021-04-24] MEDS: hydrALAZINE 100 MG TAB PO SCH ×3 (08:51→20:30)
--- NOTE | 2021-04-24 08:52 | Progress Note ---
Assessment and Plan Assessment and plan: This is a 80-year-old female with hypertension, diabetes mellitus, AK, breast cancer s/p double mastectomy, and a TIA who presented with hypoglycemia and altered mental status on 04/15 via EMS. Per EMS patient was unresponsive on their arrival and her blood glucose was 38 and she received 1 amp of dextrose patient continued to be unresponsive and only moaned with her eyes deviating to the left. Work-up in the emergency department revealed SIRS, symptomatic bradycardia, acute metabolic encephalopathy, acute hypoxic respiratory failure, elevated TSH, hyperglycemia, hyponatremia, hyperkalemia, acute kidney injury with ATN, and rhabdomyolysis 04/16: Neurology consulted, COVID-19 PCR negative, D10 drip decreased and eventually discontinued by [facility] and started on D5W for 1 L. Hydralazine as needed. Patient had hyper kalemia today and was treated with D50, insulin and Kayexalate. This time examination patient is on assist control tidal volume 450, rate of 16, PEEP of 6 and 25% FiO2. 04/17: Patient started on low-dose beta-angel per cardiology, CPAP trial again per [facility], BUN/creatinine holding steady and hypochloremia/hyponatremia slightly improved and hypokalemia has resolved. This morning a KUB was obtained which was concerning for ileus versus mechanical obstruction and surgery was c onsulted. Patient was made n.p.o. and NG tube placed to wall suction. Patient was given suppository. Per RN patient did not have a BM even though she was given Kayexalate yesterday. Will obtain a KUB in the a.m. Neurology was consulted yesterday and will await further recommendations. Nephew updated at bedside today, Carlos Romero. -[facility], cardiology, nephrology, neurology, nutrition consulted, appreciate recommendations -04/15 CT head shows age-related atrophic change, chronic small vessel ischemic change, no CT evidence of acute large vessel territory ischemic injury, hemorrhage or mass -04/15 echocardiogram shows left ventricular systolic function borderline, LVEF 45 to 50%, mild concentric LVH, paradoxical septal motion consistent with left bundle branch block with no clot identified in the left ventricle, calcified aortic valve without regurgitation or stenosis, trace MR, trace TR, no NJ, RVSP is 24 mmHg -04/17 KUB shows gas-filled and dilated loops of small bowel noted over the upper abdomen largest measuring 5 cm concerning for ileus versus mechanical obstruction -04/18 KUB shows interval resolution of previously seen small bowel dilation -04/18 EEG pending 04/18: Neurology has ordered EEG/MRI B, CCM continues to wean MV. Persistent low grade temperature so we will obtain BCx2/UA. Patient has improving leukocytosis, hyponatremia, renal function studies and hypochloremia. She has hypokalemia today which is being repleted. Surgery has signed off today and has okayed r esumption of TF. [facility] will trial CPAP for longer today and plans to attempt extubation in AM. Family has requested transfer to [place] and Dr. Gordon will attempt to contact transfer center. I updated her nephew, Carlos Romero over the phone today abouyt current events and update on transfer ([facility] will conduct a utilization review) 04/19: This morning patient is on CPAP trial at the time of examination, noted to be hypertensive and metoprolol increased to home dose, started on synthroid by [facility], lantus started re hyperglycemia, MRI completed with no acute findings. Severe hypokalemia (repleted and Mg pending). [facility] will contact CPAP trial again today with possible trial extubation tomorrow. 04/19 MRI brain shows no restricted diffusion, no hemorrhage,, no radiation, findings consistent with chronic microvascular disease, small bilateral mastoid effusions, mucosal thickening throughout the paranasal sinuses seen within the maxillary sinuses 04/20: Patient's leukocytosis and kidney function tests continue to improve. Patient is hypertensive overnight we will restart home hydralazine. [facility] plans to extubate patient today. Family is attempting to transfer to another facility. EEG pending, RT will atmept to contact computer systems technician. Urine culture grew gram negative rods. Increase in lantus 04/21: Increase in Lantus, repleted phos. Patient has started this afternoon and was given racemic epinephrine and started on steroids. Patient will have BiPAP as needed. We will recheck BMP in the a.m. renal function studies continues to decrease. Patient has been hypertensive on evaluation regimen has been changed. 04/22: Lantus increased for hyperglycemia and add amlodipine for better BP contr ol. Patient is on steroids. OT suctioned by RN with catheter in oral care kit and received copious amounts of secretions. Cr continues to decrease. Culture grew Pseudomonas and was changed in accordance to sensitivity. Kerr removed today after clearance from nephrology. 04/23: MRI of the brain was done and unremarkable. Will obtain reconsult to nephrology for further assistance as patient remains in profound encephalopathy despite improvement of blood sugar. Will repeat chest x-ray as patient does have significant congestion physical exam. Tube feeds still ongoing. Continue aspiration precautions. Continue antibiotics when completed for Pseudomonas management 04/24: Neurology input noted, patient unfortunately with no improvement mental status [place], continues with congestion, will defer with [facility] Test for lasix in the setting of renal failure. will give kayexlate for hyperkalemia, still moans and groans, mittens in place. Acute metabolic encephalopathy-persist Acute hypoxic respiratory failure (extubated 04/20) First-degree heart block Resolved ileus versus mechanical obstruction Acute kidney injury with vasomotor nephropathy UTI, Pseudomonas Possible seizure activity Hyperkalemia Elevated TSH Mild rhabdomyolysis Hypertension Diabetes mellitus with hyperglycemia on admission CAD Chronic illness debilitymyopathy Obesity S/p antibiotic therapy x1, currently on abd for UTI -S/p D10 and D5W gtt, on TF -Accu-Cheks every 6, SSI, long acting insulin -S/p IV calcium gluconate, regular insulin, D50 -S/p transcutaneous pacing, intermittent demand pacer in place -Renal ultrasound pending -Blood pressure monitoring per protocol -IV hydralazine as needed -Avoid ACEi/ARB in setting of ROJELIO -Avoid AV arron blocking agents -Avoid nephrotoxic agents and renally dose medications -BB, add home antihtn regimen as needed -Iv abx -TSH 14.1, T4 4.1, T3 pending-started on levothyroxine -Provegil -s/p racemic epinephrine x2 -Steroids -BiPAP as needed -Trend CBC, BMP, CK DVT/GI prophylaxis: Heparin subcu, PPI, SCDs to bilateral lower extremities while in bed Disposition: IMCU History Interval history: This is a 80-year-old female with HTN, DM, AK, breast CA s/p double mastectomy, TIA who presented with hypoglycemia, AMS who was admitted with SIRS, symptomatic bradycardia, acute metabolic encephalopathy, acute hypoxic respiratory failure, elevated TSH, hyperglycemia, hyponatremia, hypokalemia, ROJELIO and rhabdomyolysis. Patient seen and examined this morning very lethargic with congested sounds NG tube in place. Hospitalist Physical - Physical exam Narrative exam: General appearance: Present: no acute distress, other lethargic. not following commands due to mental status change - EENT Eyes: Present: PERRL, EOM intact, NG tube in place ENT: poor dentition - Neck Neck: Present: normal ROM - Respiratory Respiratory effort: normal Respiratory: bilateral: CTA, congested - Cardiovascular Rhythm: regular Heart Sounds: Present: S1 & S2. Absent: systolic murmur, diastolic murmur - Extremities Extremities: no ischemia, pulses intact, pulses symmetrical, normal temperature, normal color Extremity abnormal: edema Peripheral Pulses: within normal limits - Abdominal General gastrointestinal: soft, non-tender, non-distended - Integumentary Integumentary: Present: See full documentation per nursing skin assessment. Otherwise appropriate for age - Psychiatric Psychiatric: Unable to fully examine - Neurologic Neurologic: moves all extremities - Allied Health Allied health notes reviewed: nursing, RT, social work - Constitutional Vitals: Temp Pulse Resp BP Pulse Ox 98.7 F 115 H 27 H 161/88 95 04/24/21 07:00 04/24/21 08:04 04/24/21 08:04 04/24/21 08:04 04/24/21 08:04 General appearance: Present: no acute distress, other (sedated) HEART Score - HEART Score Troponin: Troponin T 0.065 ng/mL (0.00-0.029) H 04/20/21 03:32 Results - Labs CBC & Chem 7: 04/22/21 08:00 04/24/21 05:23 Labs: Laboratory Last Values WBC 12.9 K/mm3 (4.5-11.0) H 04/22/21 08:00 RBC 3.80 M/mm3 (3.65-5.03) 04/22/21 08:00 Hgb 11.6 gm/dl (10.1-14.3) 04/22/21 08:00 Hct 36.2 % (30.3-42.9) 04/22/21 08:00 MCV 95 fl (79-97) 04/22/21 08:00 MCH 31 pg (28-32) 04/22/21 08:00 MCHC 32 % (30-34) 04/22/21 08:00 RDW 14.8 % (13.2-15.2) 04/22/21 08:00 Plt Count 257 K/mm3 (140-440) 04/22/21 08:00 Lymph % (Auto) 12.8 % (13.4-35.0) L 04/15/21 17:20 [place] % (Auto) 4.1 % (0.0-7.3) 04/15/21 17:20 Eos % (Auto) 0.3 % (0.0-4.3) 04/15/21 17:20 Baso % (Auto) 0.4 % (0.0-1.8) 04/15/21 17:20 Lymph # (Auto) 1.4 K/mm3 (1.2-5.4) 04/15/21 17:20 [place] # (Auto) 0.5 K/mm3 (0.0-0.8) 04/15/21 17:20 Eos # (Auto) 0.0 K/mm3 (0.0-0.4) 04/15/21 17:20 Baso # (Auto) 0.0 K/mm3 (0.0-0.1) 04/15/21 17:20 Add Manual Diff Complete 04/16/21 05:02 Total Counted 100 04/16/21 05:02 Seg Neutrophils % 82.4 % (40.0-70.0) H 04/15/21 17:20 Seg Neuts % (Manual) 84.0 % (40.0-70.0) H 04/16/21 05:02 Band Neutrophils % 3.0 % 04/16/21 05:02 Lymphocytes % (Manual) 2.0 % (13.4-35.0) L 04/16/21 05:02 Monocytes % (Manual) 10.0 % (0.0-7.3) H 04/16/21 05:02 Metamyelocytes % 1.0 % 04/16/21 05:02 Nucleated RBC % Not Reportable 04/16/21 05:02 Seg Neutrophils # 9.3 K/mm3 (1.8-7.7) H 04/15/21 17:20 Seg Neutrophils # Man 17.8 K/mm3 (1.8-7.7) H 04/16/21 05:02 Band Neutrophils # 0.6 K/mm3 04/16/21 05:02 Lymphocytes # (Manual) 0.4 K/mm3 (1.2-5.4) L 04/16/21 05:02 Abs React Lymphs (Man) 0.0 K/mm3 04/16/21 05:02 Monocytes # (Manual) 2.1 K/mm3 (0.0-0.8) H 04/16/21 05:02 Eosinophils # (Manual) 0.0 K/mm3 (0.0-0.4) 04/16/21 05:02 Basophils # (Manual) 0.0 K/mm3 (0.0-0.1) 04/16/21 05:02 Metamyelocytes # 0.2 K/mm3 04/16/21 05:02 Myelocytes # 0.0 K/mm3 04/16/21 05:02 Promyelocytes # 0.0 K/mm3 04/16/21 05:02 Blast Cells # 0.0 K/mm3 04/16/21 05:02 WBC Morphology Not Reportable 04/16/21 05:02 Hypersegmented Neuts Not Reportable 04/16/21 05:02 Hyposegmented Neuts Not Reportable 04/16/21 05:02 Hypogranular Neuts Not Reportable 04/16/21 05:02 Smudge Cells Not Reportable 04/16/21 05:02 Toxic Granulation Not Reportable 04/16/21 05:02 Toxic Vacuolation Not Reportable 04/16/21 05:02 Dohle Bodies Not Reportable 04/16/21 05:02 Pelger-Huet Anomaly Not Reportable 04/16/21 05:02 Peterson Rods Not Reportable 04/16/21 05:02 Platelet Estimate Consistent w auto 04/16/21 05:02 Clumped Platelets Not Reportable 04/16/21 05:02 Plt Clumps, EDTA Not Reportable 04/16/21 05:02 Large Platelets Not Reportable 04/16/21 05:02 Giant Platelets Not Reportable 04/16/21 05:02 Platelet Satelliting Not Reportable 04/16/21 05:02 Plt Morphology Comment Not Reportable 04/16/21 05:02 RBC Morphology Not Reportable 04/16/21 05:02 Dimorphic RBCs Not Reportable 04/16/21 05:02 Polychromasia Not Reportable 04/16/21 05:02 Hypochromasia Not Reportable 04/16/21 05:02 Poikilocytosis Not Reportable 04/16/21 05:02 Anisocytosis Few 04/16/21 05:02 Microcytosis Not Reportable 04/16/21 05:02 Macrocytosis Not Reportable 04/16/21 05:02 Spherocytes Not Reportable 04/16/21 05:02 Pappenheimer Bodies Not Reportable 04/16/21 05:02 Sickle Cells Not Reportable 04/16/21 05:02 Target Cells Not Reportable 04/16/21 05:02 Tear Drop Cells Not Reportable 04/16/21 05:02 Ovalocytes Not Reportable 04/16/21 05:02 Helmet Cells Not Reportable 04/16/21 05:02 [place] Bodies Not Reportable 04/16/21 05:02 [place] Rings Not Reportable 04/16/21 05:02 Theo Cells Not Reportable 04/16/21 05:02 Bite Cells Not Reportable 04/16/21 05:02 Crenated Cell Not Reportable 04/16/21 05:02 Elliptocytes Not Reportable 04/16/21 05:02 Acanthocytes (Spur) Not Reportable 04/16/21 05:02 Rouleaux Not Reportable 04/16/21 05:02 Hemoglobin C Crystals Not Reportable 04/16/21 05:02 Schistocytes Not Reportable 04/16/21 05:02 Malaria parasites Not Reportable 04/16/21 05:02 James Bodies Not Reportable 04/16/21 05:02 Hem Pathologist Commnt No 04/16/21 05:02 PT 12.2 Sec. (12.2-14.9) 04/15/21 17:20 INR 0.91 (0.87-1.13) 04/15/21 17:20 APTT 31.8 Sec. (24.2-36.6) 04/15/21 17:20 ABG pH 7.526 (7.320-7.450) H 04/20/21 02:56 POC ABG pCO2 35.7 mmHg (32.0-48.0) 04/20/21 02:56 POC ABG pO2 105.1 mmHg (83-108) 04/20/21 02:56 POC ABG HCO3 28.9 04/20/21 02:56 ABG O2 Saturation 98.2 (0-100) 04/20/21 02:56 POC ABG Base Excess 5.9 04/20/21 02:56 ABG Hemoglobin 10.5 (12.0-17.5) L 04/20/21 02:56 ABG Oxyhemoglobin 97.6 (94-98) 04/20/21 02:56 ABG Methemoglobin 0.3 (0.0-1.5) 04/20/21 02:56 ABG Sodium 133.5 mmol/L (136.0-145.0) L 04/20/21 02:56 ABG Potassium 3.7 mmol/L (3.40-4.50) 04/20/21 02:56 ABG Chloride 99.0 mmol/L (98-107) 04/20/21 02:56 ABG Glucose 157 mg/dL (65-95) H 04/20/21 02:56 Carboxyhemoglobin 0.3 (0.5-1.5) L 04/20/21 02:56 FiO2 % 25.0 04/20/21 02:56 Sodium 137 mmol/L (137-145) 04/24/21 05:23 Potassium 5.2 mmol/L (3.6-5.0) H D 04/24/21 05:23 Chloride 98.1 mmol/L (98-107) 04/24/21 05:23 Carbon Dioxide 27 mmol/L (22-30) 04/24/21 05:23 Anion Gap 17 mmol/L 04/24/21 05:23 BUN 68 mg/dL (7-17) H 04/24/21 05:23 Creatinine 2.3 mg/dL (0.6-1.2) H 04/24/21 05:23 Estimated GFR 25 ml/min 04/24/21 05:23 BUN/Creatinine Ratio 30 % 04/24/21 05:23 Glucose 277 mg/dL (65-100) H 04/24/21 05:23 POC Glucose 274 mg/dL (70-105) H 04/24/21 05:46 Lactic Acid 1.50 mmol/L (0.7-2.0) 04/15/21 17:20 Calcium 9.9 mg/dL (8.4-10.2) 04/24/21 05:23 Phosphorus 2.60 mg/dL (2.5-4.5) 04/22/21 08:00 Magnesium 2.10 mg/dL (1.7-2.3) 04/23/21 07:02 Total Bilirubin 0.70 mg/dL (0.1-1.2) 04/16/21 05:02 AST 65 units/L (5-40) H 04/16/21 05:02 ALT 31 units/L (7-56) 04/16/21 05:02 Alkaline Phosphatase 79 units/L (35-129) 04/16/21 05:02 Ammonia 46.0 umol/L (25-60) 04/15/21 17:20 Total Creatine Kinase 427 units/L (30-135) H 04/18/21 05:34 CK-MB (CK-2) 9.1 ng/mL (0.0-4.0) H 04/17/21 15:35 CK-MB (CK-2) Rel Index 1.4 (0-4) 04/17/21 15:35 Troponin T 0.065 ng/mL (0.00-0.029) H 04/20/21 03:32 NT-Pro-B Natriuret Pep 697.9 pg/mL (0-900) 04/15/21 17:20 Total Protein 6.3 g/dL (6.3-8.2) D 04/16/21 05:02 Albumin 3.8 g/dL (3.9-5) L 04/16/21 05:02 Albumin/Globulin Ratio 1.5 % 04/16/21 05:02 Triglycerides 103 mg/dL (2-149) 04/17/21 05:04 Cholesterol 122 mg/dL (50-199) 04/17/21 05:04 LDL Cholesterol Direct 55 mg/dL (50-130) 04/17/21 05:04 HDL Cholesterol 61 mg/dL (40-59) H 04/17/21 05:04 Cholesterol/HDL Ratio 2.00 % 04/17/21 05:04 Procalcitonin 0.20 ng/mL (<0.15) 04/16/21 19:01 TSH 14.190 mlU/mL (0.270-4.200) H 04/15/21 17:20 Thyroxine (T4) 4.1 ug/dL (4.0-12.0) 04/16/21 19:01 Free T3 Index 1.1 pg/mL (2.3-4.2) L 04/16/21 19:01 Arterial Blood Glucose 157 mg/dL (65-95) H 04/20/21 02:56 Arterial Blood Ionized Calcium 4.8 mg/dL (4.6-5.3) 04/20/21 02:56 Urine Color Yellow (Yellow) 04/18/21 09:11 Urine Turbidity Clear (Clear) 04/18/21 09:11 Urine pH 6.0 (5.0-7.0) 04/18/21 09:11 Ur Specific [place] 1.014 (1.003-1.030) 04/18/21 09:11 Urine Protein >500 mg/dL (Negative) 04/18/21 09:11 Urine Glucose (UA) Neg mg/dL (Negative) 04/18/21 09:11 Urine Ketones Neg mg/dL (Negative) 04/18/21 09:11 Urine Blood Sm (Negative) 04/18/21 09:11 Urine Nitrite Neg (Negative) 04/18/21 09:11 Urine Bilirubin Neg (Negative) 04/18/21 09:11 Urine Urobilinogen 2.0 mg/dL (<2.0) 04/18/21 09:11 Ur Leukocyte Esterase Lg (Negative) 04/18/21 09:11 Urine WBC (Auto) 34.0 /HPF (0.0-6.0) H 04/18/21 09:11 Urine RBC (Auto) 18.0 /HPF (0.0-6.0) 04/18/21 09:11 U Epithel Cells (Auto) < 1.0 /HPF (0-13.0) 04/16/21 00:09 Urine Bacteria (Auto) 1+ /HPF (Negative) 04/16/21 00:09 Urine Creatinine 24.4 mg/dL (0.1-20.0) H 04/16/21 00:12 Urine Sodium 97 mmol/L 04/16/21 00:12 Salicylates 4.1 mg/dL (2.8-20.0) 04/15/21 17:20 Acetaminophen 5.0 ug/mL (10.0-30.0) L 04/15/21 17:20 Plasma/Serum Alcohol 0.02 % (0-0.07) 04/15/21 17:20 Coronavirus (PCR) Negative (Negative) 04/16/21 Unknown Microbiology: Microbiology 04/18/21 15:27 Peripheral/Venous Blood Culture - Final NO GROWTH AFTER 5 DAYS 04/18/21 15:27 Peripheral/Venous Blood Culture - Final NO GROWTH AFTER 5 DAYS Kerr/IV: Voiding Method External Female Catheter Active Medications - Current Medications Current Medications: Generic Name Dose Route Start Last Admin Trade Name Freq PRN Reason Stop Dose Admin Acetaminophen 650 mg 04/15/21 19:11 04/19/21 23:33 Acetaminophen 325 Mg Tab PO 650 mg Q6H PRN Administration Pain MILD(1-3)/Fever >100.5/[place] Amlodipine Besylate 5 mg 04/22/21 10:00 04/23/21 10:05 Amlodipine 5 Mg Tab PO 5 mg QDAY WOLFGANG Administration Lipase/Protease/Amylase 1 each 04/16/21 12:52 Lipase 10,500/Protease 25,000/Amylase 43,750 (Units) Dr Simpson FEEDTUBE PRN PRN For Clogged Feeding Tube Bisacodyl 10 mg 04/17/21 11:01 04/17/21 13:46 Bisacodyl 10 Mg Rect Supp NJ 10 mg QDAY PRN Administration Constipation Brimonidine Tartrate 1 drops 04/17/21 22:00 04/23/21 21:07 Brimonidine 0.15% Ophth Soln OU 1 drops BID WOLFGANG Administration Epinephrine 0.5 ml 04/21/21 12:56 Epinephrine Racemic 2.25% 0.5ml Nebu IH Q4HRT PRN Shortness Of Breath Famotidine 20 mg 04/17/21 10:00 04/23/21 10:05 Famotidine 20 Mg Tab PO 20 mg DAILY WOLFGANG Administration Heparin Sodium (Porcine) 5,000 unit 04/15/21 22:00 04/23/21 21:11 Heparin 5,000 Unit/1 Ml Vial SUB-Q 5,000 unit Q12HR WOLFGANG Administration Hydralazine HCl 10 mg 04/16/21 18:00 04/24/21 05:25 Hydralazine 20 Mg/1 Ml Inj IV 10 mg Q4HR PRN Administration Hypertension Hydralazine HCl 100 mg 04/21/21 14:00 04/23/21 21:12 Hydralazine 100 Mg Tab PO 100 mg TID WOLFGANG Administration Hydrophilic Ointment 1 applic 04/15/21 17:24 Lip Therapy Vaseline TP Q2HR PRN Dry Lips Insulin Glargine 30 units 04/24/21 08:44 Insulin Glargine 100 Units/Ml SUB-Q QAMDIAB [facility] Insulin Human Lispro 0 unit 04/16/21 15:00 04/24/21 06:00 Insulin Lispro 100 Unit/Ml SUB-Q 4 unit Q6HR WOLFGANG Administration Protocol Latanoprost 1 drops 04/17/21 18:00 04/23/21 18:01 Latanoprost 0.005% Ophth Soln 2.5 Ml OU 1 drops QPM WOLFGANG Administration Levothyroxine Sodium 25 mcg 04/19/21 06:00 04/24/21 05:26 Levothyroxine 25 Mcg Tab PO 25 mcg DAILY@0600 [facility] Administration Methylprednisolone Sodium Succinate 30 mg 04/21/21 13:00 04/24/21 05:24 Methylprednisolone Sod Succinate 40 Mg/1 Ml Inj IV 04/24/21 12:59 30 mg Q6H WOLFGANG Administration Metoprolol Tartrate 25 mg 04/19/21 10:00 04/23/21 21:12 Metoprolol Tartrate 25 Mg Tab PO 25 mg BID WOLFGANG Administration Modafinil 100 mg 04/19/21 10:00 04/23/21 10:05 Modafinil 100 Mg Tab PO 100 mg QAM WOLFGANG Administration Multi-Ingred Cream/Lotion/Oil/Oint 1 applic 04/15/21 17:24 04/16/21 11:19 Mineral Oil/Petrolatum, White Ophth Oint 3.5 Gm OU 1 applic Q4HR PRN Administration Dry Eye(s) Pravastatin Sodium 20 mg 04/19/21 22:00 04/23/21 21:10 Pravastatin 20 Mg Tab PO 20 mg QHS WOLFGANG Administration Scopolamine 1 each 04/20/21 18:00 04/23/21 10:04 Scopolamine Transdermal Patch 72 Hr TD 1 each Q3D WOLFGANG Administration Simple Syrup 15 ml 04/16/21 12:52 Simple Syrup 15 Ml FEEDTUBE PRN PRN Hypoglycemia Simple Syrup 30 ml 04/16/21 12:52 Simple Syrup 15 Ml FEEDTUBE PRN PRN Hypoglycemia Sodium Bicarbonate 325 mg 04/16/21 12:52 Sodium Bicarbonate 325 Mg Tab FEEDTUBE PRN PRN For Clogged Feeding Tube Sodium Chloride 10 ml 04/15/21 22:00 04/23/21 21:15 Sodium Chloride 0.9% 10 Ml Flush Syringe IV 10 ml BID WOLFGANG Administration Sodium Chloride 10 ml 04/15/21 19:11 04/24/21 05:27 Sodium Chloride 0.9% 10 Ml Flush Syringe IV 10 ml PRN PRN Administration LINE FLUSH Timolol Maleate 1 drops 04/19/21 10:00 04/23/21 10:07 Timolol 0.5% Ophth Soln 5 Ml OU 1 drops QDAY WOLFGANG Administration Nutrition/Malnutrition Assess - Dietary Evaluation Nutrition/Malnutrition Findings: Nutrition Notes Start: 04/16/21 12:31 Freq: Status: Active Protocol: Document 04/23/21 11:37 MAYE (Rec: 04/23/21 11:53 [facility] [id number]) Nutrition Notes Initial or Follow up Reassessment Current Diagnosis Acute Kidney Injury,Coronary Artery Disease,Diabetes, Hypertension Other Pertinent Diagnosis UTI, acute metabolic encephalopathy Current Diet TF - Glucerna 1.2 at 50ml/hr Labs/Tests BUN 57 Cr 2 BG 253 Pertinent Medications Lantus, Solumedrol, Scopolamine Height 5 ft 6 in Weight 95.3 kg [place] Body Weight (kg) 59.09 BMI 33.9 Weight Status Obese Subjective/Other Information Spoke with RN via phone at 11: 32. Pt extubated on 04/20 and is tolerating TF at goal rate; receives 50ml water flush q4h . Percent of energy/protein needs met: 100% energy 61% pro Burn Absent Trauma Absent #1 Nutrition Diagnosis Inadequate oral intake Diagnosis Progress(for reassessment Continues documentation) Is patient on ventilator? No Is Patient Ambulatory and/or Out of Bed No REE-([facility]-confined to bed) 1728.336 Kcal/Kg value to use for calculation 13 Approximate Energy Requirements Using 1239 kcal/Kg Calculation Used for Recommendations Kcal/kg Additional Notes Pro needs >2g/kg IBW: >118g/ day Fluid needs 1ml/kcal Nutrition Intervention Nutrition Support: Continue Glucerna 1.2 at 50ml/ hr with 50ml water flush q4h. Kcal 1,440 Protein (gm) 72 Fluid (mL) 966 Goal #1 TF tolerance Goal #2 TF to meet energy and pro needs as best possible Follow-Up By: 04/30/21 Additional Comments F/U: stable TF, wt
[2021-04-24] MEDS ORDERED: INSULIN GLARGINE 100 UNITS/ML SUB-Q ONE (09:00)
--- NOTE | 2021-04-24 09:52 | Progress Note ---
Assessment and Plan Assessment and Plan Assessment and plan: This is a 80-year-old female with hypertension, diabetes mellitus, VA, breast cancer s/p double mastectomy, and a TIA who presented with hypoglycemia and altered mental status on 04/15 via EMS. Per EMS patient was unresponsive on their arrival and her blood glucose was 38 and she received 1 amp of dextrose patient continued to be unresponsive and only moaned with her eyes deviating to the left. Work-up in the emergency department revealed SIRS, symptomatic bradycardia, acute metabolic encephalopathy, acute hypoxic respiratory failure, elevated TSH, hyperglycemia, hyponatremia, hyperkalemia, acute kidney injury with ATN, and rhabdomyolysis 04/16: Neurology consulted, COVID- PCR negative, D10 drip decreased and eventually discontinued by CCM and started on D5W for 1 L. Hydralazine as n eeded. Patient had hyper kalemia today and was treated with D50, insulin and Kayexalate. This time examination patient is on assist control tidal volume 450, rate of 16, PEEP of 6 and 25% FiO2. -CCM, cardiology, nephrology, neurology, nutrition consulted, -04/15 CT head shows age-related atrophic change, chronic small vessel ischemic change, no CT evidence of acute large vessel territory ischemic injury, hemorrhage or mass -04/15 echocardiogram shows left ventricular systolic function borderline, LVEF 45 to 50%, mild concentric LVH, paradoxical septal motion consistent with left bundle branch block with no clot identified in the left ventricle, calcified aortic valve without regurgitation or stenosis, trace MR, trace TR, no UT, RVSP is 24 mmHg -04/17 KUB shows gas-filled and dilated loops of small bowel noted over the upper abdomen largest measuring 5 cm concerning for ileus versus mechanical obstruction -04/18 KUB shows interval resolution of previously seen small bowel dilation -04/18 EEG diffuse slowing 04/18: Neurology has ordered EEG/MRI Brain is remarkable for slight atrophy #Acute metabolic encephalopathy-slight improvment today she open eyes and follow very simple command # diffuse weakness -mostly related to bed rest -PT started - more interactive today #Acute hypoxic respiratory failure (extubated 04/20) First-degree heart block Resolved ileus versus mechanical obstruction #Acute kidney injury UTI, Pseudomonas #No sign of seizure activity -EEG is remarkable for diffuse mild slowing #Elevated TSH #Mild rhabdomyolysis #Hypertension #Diabetes mellitus with hyperglycemia on admission #CAD #Chronic illness debilitymyopathy #Obesity DVT/GI prophylaxis: Heparin subcu, PPI, SCDs to bilateral lower extremities while in bed Disposition: IMCU PLAN 1- As above 2- she is slightly better today respond to verbal command ,she is with diffuse weakness 3- correct underlyingelctrolytes and avoid Hypoglycemia, monitor kidney function 4- treat underlying infection 5- Respiratory compromize will sign off call as needed Subjective Date of service: 04/24/21 Principal diagnosis: Ac. resp failure; AMS; Hypoglycemia; ROJELIO; Hyperkalemia; DM II Interval history: History Interval history: This is a 80-year-old female with HTN, DM, VA, breast CA s/p double mastectomy, TIA who presented with hypoglycemia, AMS who was admitted with SIRS, symptomatic bradycardia, acute metabolic encephalopathy, acute hypoxic respiratory failure, elevated TSH, hyperglycemia, hyponatremia, hypokalemia, ROJELIO and rhabdomyolysis Objective - Vital Sign Vital Signs - 12hr 04/23/21 04/23/21 04/23/21 22:01 22:31 23:01 Temperature Pulse Rate 84 94 H 86 Respiratory 27 H 28 H 22 Rate Blood Pressure 166/83 166/83 185/80 O2 Sat by Pulse 98 97 99 Oximetry 04/23/21 04/23/21 04/23/21 23:14 23:31 23:41 Temperature Pulse Rate 86 97 H 88 Respiratory 22 20 27 H Rate Blood Pressure 185/80 185/80 185/80 O2 Sat by Pulse 98 94 98 Oximetry 04/23/21 04/23/21 04/23/21 23:44 23:50 23:53 Temperature 99.7 F H Pulse Rate 87 89 Respiratory 20 Rate Blood Pressure 185/80 O2 Sat by Pulse 97 Oximetry 04/24/21 04/24/21 04/24/21 00:01 00:31 00:56 Temperature Pulse Rate 97 H 87 86 Respiratory 29 H 32 H 19 Rate Blood Pressure 185/80 185/80 185/60 O2 Sat by Pulse 94 98 99 Oximetry 04/24/21 04/24/21 04/24/21 01:01 01:31 02:01 Temperature Pulse Rate 94 H 95 H 97 H Respiratory 31 H 24 28 H Rate Blood Pressure 187/94 180/81 118/72 O2 Sat by Pulse 93 97 97 Oximetry 04/24/21 04/24/21 04/24/21 02:31 03:01 03:31 Temperature Pulse Rate 95 H 77 Respiratory 34 H 19 21 Rate Blood Pressure 118/72 145/56 145/56 O2 Sat by Pulse 93 96 97 Oximetry 04/24/21 04/24/21 04/24/21 03:40 03:55 04:00 Temperature 99.2 F Pulse Rate 77 109 H Respiratory 24 30 H Rate Blood Pressure 154/121 O2 Sat by Pulse 97 94 Oximetry 04/24/21 04/24/21 04/24/21 04:31 04:34 05:00 Temperature Pulse Rate 76 77 77 Respiratory 20 21 16 Rate Blood Pressure 154/121 154/121 164/80 O2 Sat by Pulse 98 99 99 Oximetry 04/24/21 04/24/21 04/24/21 05:31 05:55 06:01 Temperature Pulse Rate 84 77 86 Respiratory 26 H 20 30 H Rate Blood Pressure 164/80 164/80 O2 Sat by Pulse 97 97 98 Oximetry 04/24/21 04/24/21 07:00 08:04 Temperature 98.7 F Pulse Rate 115 H Respiratory 27 H Rate Blood Pressure 161/88 O2 Sat by Pulse 95 Oximetry - General Apperance Constitutional: comfortable, other (on cpap slightly responsive turn head to my direction not moving upper or lower ) - EENT EENT: PERRL, mucous membranes moist - Respiratory Respiratory: lungs clear, rhonchi - Cardiovascular Cardiovascular: regular rate Extremities: no peripheral edema bilat - Gastrointestinal Gastrointestinal: normoactive bowel sounds - Integumentary Integumentary: normal - Neurologic Cranial nerve examination: PERRL, EOMI, intact Speech examination: other (not respond eyes open follow very simple command) - Laboratory Findings CBC and BMP: 04/22/21 08:00 04/24/21 05:23 Abnormal Lab Findings: Abnormal Labs 04/15/21 04/15/21 04/15/21 17:20 17:20 17:20 WBC 11.2 H RBC Hct 43.0 H MCV RDW 15.3 H Plt Count Lymph % (Auto) 12.8 L Seg Neutrophils % 82.4 H Seg Neuts % (Manual) Lymphocytes % (Manual) Monocytes % (Manual) Seg Neutrophils # 9.3 H Seg Neutrophils # Man Lymphocytes # (Manual) Monocytes # (Manual) ABG pH POC ABG pCO2 POC ABG pO2 ABG Hemoglobin ABG Oxyhemoglobin ABG Sodium ABG Potassium ABG Chloride ABG Glucose Carboxyhemoglobin Sodium 129 L Potassium 7.1 H* Chloride 91.9 L BUN 35 H Creatinine 2.8 H Glucose POC Glucose Calcium Phosphorus Magnesium AST 69 H Total Creatine Kinase 1000 H CK-MB (CK-2) Troponin T Albumin HDL Cholesterol TSH Free T3 Index Arterial Blood Glucose Arterial Blood Ionized Calcium Urine pH Urine WBC (Auto) Urine Creatinine Acetaminophen 04/15/21 04/15/21 04/15/21 17:20 17:20 20:49 WBC RBC Hct MCV RDW Plt Count Lymph % (Auto) Seg Neutrophils % Seg Neuts % (Manual) Lymphocytes % (Manual) Monocytes % (Manual) Seg Neutrophils # Seg Neutrophils # Man Lymphocytes # (Manual) Monocytes # (Manual) ABG pH 7.557 H POC ABG pCO2 30.0 L POC ABG pO2 493.3 H ABG Hemoglobin ABG Oxyhemoglobin 99.0 H ABG Sodium 131.5 L ABG Potassium 4.7 H ABG Chloride 94.0 L ABG Glucose 218 H Carboxyhemoglobin Sodium Potassium Chloride BUN Creatinine Glucose POC Glucose Calcium Phosphorus Magnesium AST Total Creatine Kinase CK-MB (CK-2) Troponin T Albumin HDL Cholesterol TSH 14.190 H Free T3 Index Arterial Blood Glucose 218 H Arterial Blood Ionized Calcium 5.4 H Urine pH Urine WBC (Auto) Urine Creatinine Acetaminophen 5.0 L 04/15/21 04/15/21 04/16/21 21:23 23:15 00:09 WBC RBC Hct MCV RDW Plt Count Lymph % (Auto) Seg Neutrophils % Seg Neuts % (Manual) Lymphocytes % (Manual) Monocytes % (Manual) Seg Neutrophils # Seg Neutrophils # Man Lymphocytes # (Manual) Monocytes # (Manual) ABG pH POC ABG pCO2 POC ABG pO2 ABG Hemoglobin ABG Oxyhemoglobin ABG Sodium ABG Potassium ABG Chloride ABG Glucose Carboxyhemoglobin Sodium Potassium Chloride BUN Creatinine Glucose POC Glucose 173 H 207 H Calcium Phosphorus Magnesium AST Total Creatine Kinase CK-MB (CK-2) Troponin T Albumin HDL Cholesterol TSH Free T3 Index Arterial Blood Glucose Arterial Blood Ionized Calcium Urine pH 9.0 H Urine WBC (Auto) Urine Creatinine Acetaminophen 04/16/21 04/16/21 04/16/21 00:12 00:19 03:43 WBC RBC Hct MCV RDW Plt Count Lymph % (Auto) Seg Neutrophils % Seg Neuts % (Manual) Lymphocytes % (Manual) Monocytes % (Manual) Seg Neutrophils # Seg Neutrophils # Man Lymphocytes # (Manual) Monocytes # (Manual) ABG pH 7.461 H POC ABG pCO2 POC ABG pO2 ABG Hemoglobin ABG Oxyhemoglobin ABG Sodium 126.8 L ABG Potassium 5.4 H ABG Chloride 90.0 L ABG Glucose 325 H Carboxyhemoglobin Sodium Potassium 6.7 H* Chloride BUN Creatinine Glucose POC Glucose Calcium Phosphorus Magnesium AST Total Creatine Kinase CK-MB (CK-2) Troponin T Albumin HDL Cholesterol TSH Free T3 Index Arterial Blood Glucose 325 H Arterial Blood Ionized Calcium Urine pH Urine WBC (Auto) Urine Creatinine 24.4 H Acetaminophen 04/16/21 04/16/21 04/16/21 03:55 05:02 05:02 WBC 21.2 H RBC Hct 43.4 H MCV 98 H RDW Plt Count Lymph % (Auto) Seg Neutrophils % Seg Neuts % (Manual) 84.0 H Lymphocytes % (Manual) 2.0 L Monocytes % (Manual) 10.0 H Seg Neutrophils # Seg Neutrophils # Man 17.8 H Lymphocytes # (Manual) 0.4 L Monocytes # (Manual) 2.1 H ABG pH POC ABG pCO2 POC ABG pO2 ABG Hemoglobin ABG Oxyhemoglobin ABG Sodium ABG Potassium ABG Chloride ABG Glucose Carboxyhemoglobin Sodium 131 L Potassium 5.9 H Chloride 88.7 L BUN 34 H Creatinine 2.9 H Glucose 249 H POC Glucose 391 H Calcium 10.4 H Phosphorus Magnesium AST 65 H Total Creatine Kinase CK-MB (CK-2) Troponin T Albumin 3.8 L HDL Cholesterol TSH Free T3 Index Arterial Blood Glucose Arterial Blood Ionized Calcium Urine pH Urine WBC (Auto) Urine Creatinine Acetaminophen 04/16/21 04/16/21 04/16/21 11:34 16:09 18:15 WBC RBC Hct MCV RDW Plt Count Lymph % (Auto) Seg Neutrophils % Seg Neuts % (Manual) Lymphocytes % (Manual) Monocytes % (Manual) Seg Neutrophils # Seg Neutrophils # Man Lymphocytes # (Manual) Monocytes # (Manual) ABG pH POC ABG pCO2 POC ABG pO2 ABG Hemoglobin ABG Oxyhemoglobin ABG Sodium ABG Potassium ABG Chloride ABG Glucose Carboxyhemoglobin Sodium Potassium Chloride BUN Creatinine Glucose POC Glucose 382 H 300 H 287 H Calcium Phosphorus Magnesium AST Total Creatine Kinase CK-MB (CK-2) Troponin T Albumin HDL Cholesterol TSH Free T3 Index Arterial Blood Glucose Arterial Blood Ionized Calcium Urine pH Urine WBC (Auto) Urine Creatinine Acetaminophen 04/16/21 04/16/21 04/16/21 19:01 19:01 19:01 WBC RBC Hct MCV RDW Plt Count Lymph % (Auto) Seg Neutrophils % Seg Neuts % (Manual) Lymphocytes % (Manual) Monocytes % (Manual) Seg Neutrophils # Seg Neutrophils # Man Lymphocytes # (Manual) Monocytes # (Manual) ABG pH POC ABG pCO2 POC ABG pO2 ABG Hemoglobin ABG Oxyhemoglobin ABG Sodium ABG Potassium ABG Chloride ABG Glucose Carboxyhemoglobin Sodium 125 L Potassium 5.5 H 5.6 H Chloride 84.5 L BUN 37 H Creatinine 3.5 H Glucose 236 H POC Glucose Calcium Phosphorus Magnesium AST Total Creatine Kinase CK-MB (CK-2) Troponin T Albumin HDL Cholesterol TSH Free T3 Index 1.1 L Arterial Blood Glucose Arterial Blood Ionized Calcium Urine pH Urine WBC (Auto) Urine Creatinine Acetaminophen 04/16/21 04/17/21 04/17/21 23:48 03:09 05:04 WBC RBC Hct MCV RDW Plt Count Lymph % (Auto) Seg Neutrophils % Seg Neuts % (Manual) Lymphocytes % (Manual) Monocytes % (Manual) Seg Neutrophils # Seg Neutrophils # Man Lymphocytes # (Manual) Monocytes # (Manual) ABG pH 7.518 H POC ABG pCO2 POC ABG pO2 ABG Hemoglobin ABG Oxyhemoglobin ABG Sodium 126.4 L ABG Potassium ABG Chloride 89.0 L ABG Glucose 200 H Carboxyhemoglobin Sodium 129 L Potassium Chloride 86.1 L BUN 39 H Creatinine 3.5 H Glucose 202 H POC Glucose 243 H Calcium Phosphorus Magnesium AST Total Creatine Kinase 750 H CK-MB (CK-2) Troponin T 0.119 H* D Albumin HDL Cholesterol 61 H TSH Free T3 Index Arterial Blood Glucose 200 H Arterial Blood Ionized Calcium 4.4 L Urine pH Urine WBC (Auto) Urine Creatinine Acetaminophen 04/17/21 04/17/21 04/17/21 06:14 11:55 15:35 WBC RBC Hct MCV RDW Plt Count Lymph % (Auto) Seg Neutrophils % Seg Neuts % (Manual) Lymphocytes % (Manual) Monocytes % (Manual) Seg Neutrophils # Seg Neutrophils # Man Lymphocytes # (Manual) Monocytes # (Manual) ABG pH POC ABG pCO2 POC ABG pO2 ABG Hemoglobin ABG Oxyhemoglobin ABG Sodium ABG Potassium ABG Chloride ABG Glucose Carboxyhemoglobin Sodium Potassium Chloride BUN Creatinine Glucose POC Glucose 208 H 276 H Calcium Phosphorus Magnesium AST Total Creatine Kinase 615 H CK-MB (CK-2) 9.1 H Troponin T Albumin HDL Cholesterol TSH Free T3 Index Arterial Blood Glucose Arterial Blood Ionized Calcium Urine pH Urine WBC (Auto) Urine Creatinine Acetaminophen 04/17/21 04/17/21 04/18/21 15:35 17:07 00:01 WBC 17.1 H RBC Hct MCV RDW Plt Count Lymph % (Auto) Seg Neutrophils % Seg Neuts % (Manual) Lymphocytes % (Manual) Monocytes % (Manual) Seg Neutrophils # Seg Neutrophils # Man Lymphocytes # (Manual) Monocytes # (Manual) ABG pH POC ABG pCO2 POC ABG pO2 ABG Hemoglobin ABG Oxyhemoglobin ABG Sodium ABG Potassium ABG Chloride ABG Glucose Carboxyhemoglobin Sodium Potassium Chloride BUN Creatinine Glucose POC Glucose 148 H 192 H Calcium Phosphorus Magnesium AST Total Creatine Kinase CK-MB (CK-2) Troponin T Albumin HDL Cholesterol TSH Free T3 Index Arterial Blood Glucose Arterial Blood Ionized Calcium Urine pH Urine WBC (Auto) Urine Creatinine Acetaminophen 04/18/21 04/18/21 04/18/21 03:00 05:24 05:34 WBC 15.3 H RBC 3.34 L Hct MCV RDW 15.3 H Plt Count Lymph % (Auto) Seg Neutrophils % Seg Neuts % (Manual) Lymphocytes % (Manual) Monocytes % (Manual) Seg Neutrophils # Seg Neutrophils # Man Lymphocytes # (Manual) Monocytes # (Manual) ABG pH 7.497 H POC ABG pCO2 POC ABG pO2 77.7 L ABG Hemoglobin 10.4 L ABG Oxyhemoglobin ABG Sodium 129.7 L ABG Potassium 2.8 L ABG Chloride 92.0 L ABG Glucose 134 H Carboxyhemoglobin 0.3 L Sodium Potassium Chloride BUN Creatinine Glucose POC Glucose 162 H Calcium Phosphorus Magnesium AST Total Creatine Kinase CK-MB (CK-2) Troponin T Albumin HDL Cholesterol TSH Free T3 Index Arterial Blood Glucose 134 H Arterial Blood Ionized Calcium 4.3 L Urine pH Urine WBC (Auto) Urine Creatinine Acetaminophen 04/18/21 04/18/21 04/18/21 05:34 05:43 09:11 WBC RBC Hct MCV RDW Plt Count Lymph % (Auto) Seg Neutrophils % Seg Neuts % (Manual) Lymphocytes % (Manual) Monocytes % (Manual) Seg Neutrophils # Seg Neutrophils # Man Lymphocytes # (Manual) Monocytes # (Manual) ABG pH POC ABG pCO2 POC ABG pO2 ABG Hemoglobin ABG Oxyhemoglobin ABG Sodium ABG Potassium ABG Chloride ABG Glucose Carboxyhemoglobin Sodium 134 L Potassium 3.0 L D Chloride 93.5 L BUN 42 H Creatinine 3.1 H Glucose 152 H POC Glucose Calcium Phosphorus Magnesium 1.40 L AST Total Creatine Kinase 427 H CK-MB (CK-2) Troponin T 0.081 H D Albumin HDL Cholesterol TSH Free T3 Index Arterial Blood Glucose Arterial Blood Ionized Calcium Urine pH Urine WBC (Auto) 34.0 H Urine Creatinine Acetaminophen 04/18/21 04/18/21 04/18/21 11:34 17:24 23:18 WBC RBC Hct MCV RDW Plt Count Lymph % (Auto) Seg Neutrophils % Seg Neuts % (Manual) Lymphocytes % (Manual) Monocytes % (Manual) Seg Neutrophils # Seg Neutrophils # Man Lymphocytes # (Manual) Monocytes # (Manual) ABG pH POC ABG pCO2 POC ABG pO2 ABG Hemoglobin ABG Oxyhemoglobin ABG Sodium ABG Potassium ABG Chloride ABG Glucose Carboxyhemoglobin Sodium Potassium Chloride BUN Creatinine Glucose POC Glucose 170 H 151 H 182 H Calcium Phosphorus Magnesium AST Total Creatine Kinase CK-MB (CK-2) Troponin T Albumin HDL Cholesterol TSH Free T3 Index Arterial Blood Glucose Arterial Blood Ionized Calcium Urine pH Urine WBC (Auto) Urine Creatinine Acetaminophen 04/19/21 04/19/21 04/19/21 04:09 05:19 07:30 WBC 14.8 H RBC 3.20 L Hct MCV 98 H RDW Plt Count 137 L Lymph % (Auto) Seg Neutrophils % Seg Neuts % (Manual) Lymphocytes % (Manual) Monocytes % (Manual) Seg Neutrophils # Seg Neutrophils # Man Lymphocytes # (Manual) Monocytes # (Manual) ABG pH 7.476 H POC ABG pCO2 POC ABG pO2 79.4 L ABG Hemoglobin 10.7 L ABG Oxyhemoglobin ABG Sodium 131.2 L ABG Potassium 2.8 L ABG Chloride 94.0 L ABG Glucose 209 H Carboxyhemoglobin 0.3 L Sodium Potassium Chloride BUN Creatinine Glucose POC Glucose 204 H Calcium Phosphorus Magnesium AST Total Creatine Kinase CK-MB (CK-2) Troponin T Albumin HDL Cholesterol TSH Free T3 Index Arterial Blood Glucose 209 H Arterial Blood Ionized Calcium Urine pH Urine WBC (Auto) Urine Creatinine Acetaminophen 04/19/21 04/19/21 04/19/21 07:30 10:35 11:48 WBC RBC Hct MCV RDW Plt Count Lymph % (Auto) Seg Neutrophils % Seg Neuts % (Manual) Lymphocytes % (Manual) Monocytes % (Manual) Seg Neutrophils # Seg Neutrophils # Man Lymphocytes # (Manual) Monocytes # (Manual) ABG pH 7.464 H POC ABG pCO2 POC ABG pO2 81.8 L ABG Hemoglobin 10.8 L ABG Oxyhemoglobin ABG Sodium 129.6 L ABG Potassium ABG Chloride 95.0 L ABG Glucose 238 H Carboxyhemoglobin Sodium 133 L Potassium 2.8 L* Chloride 94.4 L BUN 43 H Creatinine 2.7 H Glucose 255 H POC Glucose 208 H Calcium 8.0 L Phosphorus Magnesium AST Total Creatine Kinase CK-MB (CK-2) Troponin T 0.060 H D Albumin HDL Cholesterol TSH Free T3 Index Arterial Blood Glucose 238 H Arterial Blood Ionized Calcium Urine pH Urine WBC (Auto) Urine Creatinine Acetaminophen 04/19/21 04/19/21 04/20/21 20:40 23:04 02:56 WBC RBC Hct MCV RDW Plt Count Lymph % (Auto) Seg Neutrophils % Seg Neuts % (Manual) Lymphocytes % (Manual) Monocytes % (Manual) Seg Neutrophils # Seg Neutrophils # Man Lymphocytes # (Manual) Monocytes # (Manual) ABG pH 7.526 H POC ABG pCO2 POC ABG pO2 ABG Hemoglobin 10.5 L ABG Oxyhemoglobin ABG Sodium 133.5 L ABG Potassium ABG Chloride ABG Glucose 157 H Carboxyhemoglobin 0.3 L Sodium Potassium 3.4 L D Chloride BUN Creatinine Glucose POC Glucose 173 H Calcium Phosphorus Magnesium AST Total Creatine Kinase CK-MB (CK-2) Troponin T Albumin HDL Cholesterol TSH Free T3 Index Arterial Blood Glucose 157 H Arterial Blood Ionized Calcium Urine pH Urine WBC (Auto) Urine Creatinine Acetaminophen 04/20/21 04/20/21 04/20/21 03:32 03:32 03:46 WBC 13.2 H RBC 3.18 L Hct MCV RDW Plt Count Lymph % (Auto) Seg Neutrophils % Seg Neuts % (Manual) Lymphocytes % (Manual) Monocytes % (Manual) Seg Neutrophils # Seg Neutrophils # Man Lymphocytes # (Manual) Monocytes # (Manual) ABG pH POC ABG pCO2 POC ABG pO2 ABG Hemoglobin ABG Oxyhemoglobin ABG Sodium ABG Potassium ABG Chloride ABG Glucose Carboxyhemoglobin Sodium 135 L Potassium Chloride 96.7 L BUN 40 H Creatinine 2.3 H Glucose 142 H POC Glucose Calcium Phosphorus 2.10 L Magnesium AST Total Creatine Kinase CK-MB (CK-2) Troponin T 0.065 H Albumin HDL Cholesterol TSH Free T3 Index Arterial Blood Glucose Arterial Blood Ionized Calcium Urine pH Urine WBC (Auto) Urine Creatinine Acetaminophen 04/20/21 04/20/21 04/20/21 05:42 11:50 17:09 WBC RBC Hct MCV RDW Plt Count Lymph % (Auto) Seg Neutrophils % Seg Neuts % (Manual) Lymphocytes % (Manual) Monocytes % (Manual) Seg Neutrophils # Seg Neutrophils # Man Lymphocytes # (Manual) Monocytes # (Manual) ABG pH POC ABG pCO2 POC ABG pO2 ABG Hemoglobin ABG Oxyhemoglobin ABG Sodium ABG Potassium ABG Chloride ABG Glucose Carboxyhemoglobin Sodium Potassium Chloride BUN Creatinine Glucose POC Glucose 160 H 194 H 153 H Calcium Phosphorus Magnesium AST Total Creatine Kinase CK-MB (CK-2) Troponin T Albumin HDL Cholesterol TSH Free T3 Index Arterial Blood Glucose Arterial Blood Ionized Calcium Urine pH Urine WBC (Auto) Urine Creatinine Acetaminophen 04/20/21 04/21/21 04/21/21 23:18 05:26 05:51 WBC RBC 3.20 L Hct MCV 99 H RDW 15.3 H Plt Count Lymph % (Auto) Seg Neutrophils % Seg Neuts % (Manual) Lymphocytes % (Manual) Monocytes % (Manual) Seg Neutrophils # Seg Neutrophils # Man Lymphocytes # (Manual) Monocytes # (Manual) ABG pH POC ABG pCO2 POC ABG pO2 ABG Hemoglobin ABG Oxyhemoglobin ABG Sodium ABG Potassium ABG Chloride ABG Glucose Carboxyhemoglobin Sodium Potassium Chloride BUN Creatinine Glucose POC Glucose 162 H 164 H Calcium Phosphorus Magnesium AST Total Creatine Kinase CK-MB (CK-2) Troponin T Albumin HDL Cholesterol TSH Free T3 Index Arterial Blood Glucose Arterial Blood Ionized Calcium Urine pH Urine WBC (Auto) Urine Creatinine Acetaminophen 04/21/21 04/21/21 04/21/21 05:51 12:12 17:13 WBC RBC Hct MCV RDW Plt Count Lymph % (Auto) Seg Neutrophils % Seg Neuts % (Manual) Lymphocytes % (Manual) Monocytes % (Manual) Seg Neutrophils # Seg Neutrophils # Man Lymphocytes # (Manual) Monocytes # (Manual) ABG pH POC ABG pCO2 POC ABG pO2 ABG Hemoglobin ABG Oxyhemoglobin ABG Sodium ABG Potassium ABG Chloride ABG Glucose Carboxyhemoglobin Sodium Potassium Chloride 96.6 L BUN 42 H Creatinine 2.1 H Glucose 171 H POC Glucose 167 H 178 H Calcium Phosphorus Magnesium AST Total Creatine Kinase CK-MB (CK-2) Troponin T Albumin HDL Cholesterol TSH Free T3 Index Arterial Blood Glucose Arterial Blood Ionized Calcium Urine pH Urine WBC (Auto) Urine Creatinine Acetaminophen 04/21/21 04/22/21 04/22/21 23:42 05:29 08:00 WBC 12.9 H RBC Hct MCV RDW Plt Count Lymph % (Auto) Seg Neutrophils % Seg Neuts % (Manual) Lymphocytes % (Manual) Monocytes % (Manual) Seg Neutrophils # Seg Neutrophils # Man Lymphocytes # (Manual) Monocytes # (Manual) ABG pH POC ABG pCO2 POC ABG pO2 ABG Hemoglobin ABG Oxyhemoglobin ABG Sodium ABG Potassium ABG Chloride ABG Glucose Carboxyhemoglobin Sodium Potassium Chloride BUN Creatinine Glucose POC Glucose 253 H 208 H Calcium Phosphorus Magnesium AST Total Creatine Kinase CK-MB (CK-2) Troponin T Albumin HDL Cholesterol TSH Free T3 Index Arterial Blood Glucose Arterial Blood Ionized Calcium Urine pH Urine WBC (Auto) Urine Creatinine Acetaminophen 04/22/21 04/22/21 04/22/21 08:00 12:06 17:34 WBC RBC Hct MCV RDW Plt Count Lymph % (Auto) Seg Neutrophils % Seg Neuts % (Manual) Lymphocytes % (Manual) Monocytes % (Manual) Seg Neutrophils # Seg Neutrophils # Man Lymphocytes # (Manual) Monocytes # (Manual) ABG pH POC ABG pCO2 POC ABG pO2 ABG Hemoglobin ABG Oxyhemoglobin ABG Sodium ABG Potassium ABG Chloride ABG Glucose Carboxyhemoglobin Sodium Potassium Chloride BUN 47 H Creatinine 1.9 H Glucose 252 H POC Glucose 298 H 259 H Calcium Phosphorus Magnesium AST Total Creatine Kinase CK-MB (CK-2) Troponin T Albumin HDL Cholesterol TSH Free T3 Index Arterial Blood Glucose Arterial Blood Ionized Calcium Urine pH Urine WBC (Auto) Urine Creatinine Acetaminophen 04/22/21 04/23/21 04/23/21 23:01 05:08 07:02 WBC RBC Hct MCV RDW Plt Count Lymph % (Auto) Seg Neutrophils % Seg Neuts % (Manual) Lymphocytes % (Manual) Monocytes % (Manual) Seg Neutrophils # Seg Neutrophils # Man Lymphocytes # (Manual) Monocytes # (Manual) ABG pH POC ABG pCO2 POC ABG pO2 ABG Hemoglobin ABG Oxyhemoglobin ABG Sodium ABG Potassium ABG Chloride ABG Glucose Carboxyhemoglobin Sodium Potassium Chloride 97.7 L BUN 57 H Creatinine 2.0 H Glucose 253 H POC Glucose 280 H 223 H Calcium Phosphorus Magnesium AST Total Creatine Kinase CK-MB (CK-2) Troponin T Albumin HDL Cholesterol TSH Free T3 Index Arterial Blood Glucose Arterial Blood Ionized Calcium Urine pH Urine WBC (Auto) Urine Creatinine Acetaminophen 04/23/21 04/23/21 04/23/21 11:57 17:33 23:15 WBC RBC Hct MCV RDW Plt Count Lymph % (Auto) Seg Neutrophils % Seg Neuts % (Manual) Lymphocytes % (Manual) Monocytes % (Manual) Seg Neutrophils # Seg Neutrophils # Man Lymphocytes # (Manual) Monocytes # (Manual) ABG pH POC ABG pCO2 POC ABG pO2 ABG Hemoglobin ABG Oxyhemoglobin ABG Sodium ABG Potassium ABG Chloride ABG Glucose Carboxyhemoglobin Sodium Potassium Chloride BUN Creatinine Glucose POC Glucose 310 H 235 H 197 H Calcium Phosphorus Magnesium AST Total Creatine Kinase CK-MB (CK-2) Troponin T Albumin HDL Cholesterol TSH Free T3 Index Arterial Blood Glucose Arterial Blood Ionized Calcium Urine pH Urine WBC (Auto) Urine Creatinine Acetaminophen 04/24/21 04/24/21 05:23 05:46 WBC RBC Hct MCV RDW Plt Count Lymph % (Auto) Seg Neutrophils % Seg Neuts % (Manual) Lymphocytes % (Manual) Monocytes % (Manual) Seg Neutrophils # Seg Neutrophils # Man Lymphocytes # (Manual) Monocytes # (Manual) ABG pH POC ABG pCO2 POC ABG pO2 ABG Hemoglobin ABG Oxyhemoglobin ABG Sodium ABG Potassium ABG Chloride ABG Glucose Carboxyhemoglobin Sodium Potassium 5.2 H D Chloride BUN 68 H Creatinine 2.3 H Glucose 277 H POC Glucose 274 H Calcium Phosphorus Magnesium AST Total Creatine Kinase CK-MB (CK-2) Troponin T Albumin HDL Cholesterol TSH Free T3 Index Arterial Blood Glucose Arterial Blood Ionized Calcium Urine pH Urine WBC (Auto) Urine Creatinine Acetaminophen
[2021-04-24] MEDS ORDERED: SODIUM POLYSTYRENE 15 GM/60 ML ORAL LIQD PO ONE ×2 (10:00→10:30)
[2021-04-24] MEDS: amLODIPine 5 MG TAB PO SCH (10:15)
[2021-04-24] MEDS: BRIMONIDINE 0.15% OPHTH SOLN OU SCH ×2 (10:15→21:22)
[2021-04-24] MEDS: FAMOTIDINE 20 MG TAB PO SCH (10:18)
[2021-04-24] MEDS: METOPROLOL TARTRATE 25 MG TAB PO SCH ×2 (10:18→21:19)
[2021-04-24] MEDS: MODAFINIL 100 MG TAB PO SCH (10:18)
[2021-04-24] MEDS: TIMOLOL 0.5% OPHTH SOLN 5 ML OU SCH (10:18)
[2021-04-24] MEDS: HEPARIN 5,000 UNIT/1 ML VIAL SUB-Q SCH ×2 (10:18→21:19)
--- NOTE | 2021-04-24 10:20 | Progress Note ---
Assessment and Plan 1. Acute kidney injury: Likely vasomotor ROJELIO. ATN likely. Renal US negative for hydro. Baseline renal function is unknown. Monitor renal function. Non-oliguric. Slight increase in the Creatinine level noted. Avoid nephrotoxic agents. Meds dosage based on GFR. 2. FEN: Hyperkalemia, meds ordered, monitor. Hyponatremia, improved. Monitor lytes and volume status. 3. Acute hypoxemic respiratory failure: S/p extubated, on BIPAP now. 4. Acute encephalopathy: Hypoglycemia. MRI brain negative. Followed by Neuro. 5. Pseudomonas UTI. 6. Hypertension. 7. DM type 2. 8. Mild rhabdomyolysis. 9. Mildly complex R renal cyst. Subjective: Patient was seen and examined at the bedside. Examination: General appearance: well-developed, appears stated age, resp distress, on BIPAP HEENT: BRUCE, atraumatic Neck: trachea midline Respiratory: Coarse breath sounds heard Heart: S1S2, no murmur Abdomen: soft, obese, bowel sounds heard, NT Integumentary: no obvious rash Neurologic: lethargic, non-verbal, not following any command Ext: no edema noted Subjective Date of service: 04/24/21 Principal diagnosis: Ac. resp failure; AMS; Hypoglycemia; ROJELIO; Hyperkalemia; DM II Objective - Vital Signs Vital signs: Vital Signs - 12hr 04/23/21 04/23/21 04/23/21 22:31 23:01 23:14 Temperature Pulse Rate 94 H 86 86 Respiratory 28 H 22 22 Rate Blood Pressure 166/83 185/80 185/80 O2 Sat by Pulse 97 99 98 Oximetry 04/23/21 04/23/21 04/23/21 23:31 23:41 23:44 Temperature 99.7 F H Pulse Rate 97 H 88 Respiratory 20 27 H Rate Blood Pressure 185/80 185/80 O2 Sat by Pulse 94 98 Oximetry 04/23/21 04/23/21 04/24/21 23:50 23:53 00:01 Temperature Pulse Rate 87 89 97 H Respiratory 20 29 H Rate Blood Pressure 185/80 185/80 O2 Sat by Pulse 97 94 Oximetry 04/24/21 04/24/21 04/24/21 00:31 00:56 01:01 Temperature Pulse Rate 87 86 94 H Respiratory 32 H 19 31 H Rate Blood Pressure 185/80 185/60 187/94 O2 Sat by Pulse 98 99 93 Oximetry 04/24/21 04/24/21 04/24/21 01:31 02:01 02:31 Temperature Pulse Rate 95 H 97 H 95 H Respiratory 24 28 H 34 H Rate Blood Pressure 180/81 118/72 118/72 O2 Sat by Pulse 97 97 93 Oximetry 04/24/21 04/24/21 04/24/21 03:01 03:31 03:40 Temperature Pulse Rate 77 77 Respiratory 19 21 24 Rate Blood Pressure 145/56 145/56 O2 Sat by Pulse 96 97 97 Oximetry 04/24/21 04/24/21 04/24/21 03:55 04:00 04:31 Temperature 99.2 F Pulse Rate 109 H 76 Respiratory 30 H 20 Rate Blood Pressure 154/121 154/121 O2 Sat by Pulse 94 98 Oximetry 04/24/21 04/24/21 04/24/21 04:34 05:00 05:31 Temperature Pulse Rate 77 77 84 Respiratory 21 16 26 H Rate Blood Pressure 154/121 164/80 164/80 O2 Sat by Pulse 99 99 97 Oximetry 04/24/21 04/24/21 04/24/21 05:55 06:01 07:00 Temperature 98.7 F Pulse Rate 77 86 Respiratory 20 30 H Rate Blood Pressure 164/80 O2 Sat by Pulse 97 98 Oximetry 04/24/21 04/24/21 04/24/21 08:04 10:15 10:18 Temperature Pulse Rate 115 H 84 84 Respiratory 27 H Rate Blood Pressure 161/88 168/101 168/101 O2 Sat by Pulse 95 Oximetry - Lab 04/22/21 08:00 04/24/21 05:23 Most recent lab results ABG pH 7.526 (7.320-7.450) H 04/20/21 02:56 ABG O2 Saturation 98.2 (0-100) 04/20/21 02:56 Calcium 9.9 mg/dL (8.4-10.2) 04/24/21 05:23 Phosphorus 2.60 mg/dL (2.5-4.5) 04/22/21 08:00 Magnesium 2.10 mg/dL (1.7-2.3) 04/23/21 07:02 Urine Creatinine 24.4 mg/dL (0.1-20.0) H 04/16/21 00:12 Urine Sodium 97 mmol/L 04/16/21 00:12 Medications & Allergies - Medications Allergies/Adverse Reactions: Allergies No Known Allergies Allergy (Unverified 04/15/21 17:41) Home Medications: Home Medications Medication Instructions Recorded Confirmed Last Taken Type Betaxolol HCl [Betoptic S 0.25% 1 drop OU BID 04/16/21 04/16/21 Unknown History SUSP] Bimatoprost [Lumigan 0.01%] 1 drop OU QPM 04/16/21 04/16/21 Unknown History Brimonidine Tartrate [Brimonidine 5 ml OU BID 04/16/21 04/16/21 Unknown History Tartrate 0.2%] Furosemide [Lasix TAB] 40 mg PO QDAY 04/16/21 04/16/21 Unknown History Gabapentin [Neurontin] 300 mg PO Q8HR 04/16/21 04/16/21 Unknown History HYDROcodone/APAP 10-325 [Bixby 1 each PO Q6HR PRN 04/16/21 04/16/21 Unknown History 10/325] Hydralazine HCl 50 mg PO Q4HR 04/16/21 04/16/21 Unknown History Insulin Aspart Prot/Insuln Asp 52 units SQ HS 04/16/21 04/16/21 Unknown History [Novolog Mix 70-30 Flexpen] Metoprolol [Lopressor] 25 mg PO BID 04/16/21 04/16/21 Unknown History Pravastatin [Pravachol] 20 mg PO QHS 04/16/21 04/16/21 Unknown History Promethazine [Phenergan] 25 mg PO Q6HR 04/16/21 04/16/21 Unknown History allopurinoL [Zyloprim] 150 mg PO QDAY 04/16/21 04/16/21 Unknown History Active Medications: Generic Name Dose Route Start Last Admin Trade Name Freq PRN Reason Stop Dose Admin Acetaminophen 650 mg 04/15/21 19:11 04/19/21 23:33 Acetaminophen 325 Mg Tab PO 650 mg Q6H PRN Administration Pain MILD(1-3)/Fever >100.5/SEXTON Amlodipine Besylate 5 mg 04/22/21 10:00 04/24/21 10:15 Amlodipine 5 Mg Tab PO 5 mg QDAY WOLFGANG Administration Lipase/Protease/Amylase 1 each 04/16/21 12:52 Lipase 10,500/Protease 25,000/Amylase 43,750 (Units) Dr Simpson FEEDTUBE PRN PRN For Clogged Feeding Tube Aspirin 81 mg 04/25/21 10:00 Aspirin 81 Mg Tab Chew PO QDAY WOLFGANG Bisacodyl 10 mg 04/17/21 11:01 04/17/21 13:46 Bisacodyl 10 Mg Rect Supp MT 10 mg QDAY PRN Administration Constipation Brimonidine Tartrate 1 drops 04/17/21 22:00 04/24/21 10:15 Brimonidine 0.15% Ophth Soln OU 1 drops BID WOLFGANG Administration Clopidogrel Bisulfate 75 mg 04/25/21 10:00 Clopidogrel 75 Mg Tab PO QDAY WOLFGANG Epinephrine 0.5 ml 04/21/21 12:56 Epinephrine Racemic 2.25% 0.5ml Nebu IH Q4HRT PRN Shortness Of Breath Famotidine 20 mg 04/17/21 10:00 04/24/21 10:18 Famotidine 20 Mg Tab PO 20 mg DAILY [facility] Administration Heparin Sodium (Porcine) 5,000 unit 04/15/21 22:00 04/24/21 10:18 Heparin 5,000 Unit/1 Ml Vial SUB-Q 5,000 unit Q12HR [facility]OLFGANG Administration Hydralazine HCl 10 mg 04/16/21 18:00 04/24/21 05:25 Hydralazine 20 Mg/1 Ml Inj IV 10 mg Q4HR PRN Administration Hypertension Hydralazine HCl 100 mg 04/21/21 14:00 04/24/21 08:51 Hydralazine 100 Mg Tab PO 100 mg TID [facility] Administration Hydrophilic Ointment 1 applic 04/15/21 17:24 Lip Therapy Vaseline TP Q2HR PRN Dry Lips Insulin Glargine 30 units 04/25/21 08:00 Insulin Glargine 100 Units/Ml SUB-Q QAMDIAB [facility] Insulin Human Lispro 0 unit 04/16/21 15:00 04/24/21 06:00 Insulin Lispro 100 Unit/Ml SUB-Q 4 unit Q6HR [facility] Administration Protocol Latanoprost 1 drops 04/17/21 18:00 04/23/21 18:01 Latanoprost 0.005% Ophth Soln 2.5 Ml OU 1 drops QPM [facility] Administration Levothyroxine Sodium 25 mcg 04/19/21 06:00 04/24/21 05:26 Levothyroxine 25 Mcg Tab PO 25 mcg DAILY@0600 [facility] Administration Methylprednisolone Sodium Succinate 30 mg 04/21/21 13:00 04/24/21 08:50 Methylprednisolone Sod Succinate 40 Mg/1 Ml Inj IV 04/24/21 12:59 30 mg Q6H [facility] Administration Metoprolol Tartrate 25 mg 04/19/21 10:00 04/24/21 10:18 Metoprolol Tartrate 25 Mg Tab PO 25 mg BID [facility] Administration Modafinil 100 mg 04/19/21 10:00 04/24/21 10:18 Modafinil 100 Mg Tab PO 100 mg QAM [facility] Administration Multi-Ingred Cream/Lotion/Oil/Oint 1 applic 04/15/21 17:24 04/16/21 11:19 Mineral Oil/Petrolatum, White Ophth Oint 3.5 Gm OU 1 applic Q4HR PRN Administration Dry Eye(s) Pravastatin Sodium 20 mg 04/19/21 22:00 04/23/21 21:10 Pravastatin 20 Mg Tab PO 20 mg QHS [facility] Administration Scopolamine 1 each 04/20/21 18:00 04/23/21 10:04 Scopolamine Transdermal Patch 72 Hr TD 1 each Q3D [facility] Administration Simple Syrup 15 ml 04/16/21 12:52 Simple Syrup 15 Ml FEEDTUBE PRN PRN Hypoglycemia Simple Syrup 30 ml 04/16/21 12:52 Simple Syrup 15 Ml FEEDTUBE PRN PRN Hypoglycemia Sodium Bicarbonate 325 mg 04/16/21 12:52 Sodium Bicarbonate 325 Mg Tab FEEDTUBE PRN PRN For Clogged Feeding Tube Sodium Chloride 10 ml 04/15/21 22:00 04/24/21 10:18 Sodium Chloride 0.9% 10 Ml Flush Syringe IV 10 ml BID [facility]ANG Administration Sodium Chloride 10 ml 04/15/21 19:11 04/24/21 05:27 Sodium Chloride 0.9% 10 Ml Flush Syringe IV 10 ml PRN PRN Administration LINE FLUSH Timolol Maleate 1 drops 04/19/21 10:00 04/24/21 10:18 Timolol 0.5% Ophth Soln 5 Ml OU 1 drops QDAY WOLFGANG Administration
--- NOTE | 2021-04-24 10:26 | XRay Report ---
CHEST 1 VIEW INDICATION: shortness of breath COMPARISON: April 18, 2021 FINDINGS: SUPPORT DEVICES: Dobbhoff feeding tube has its tip in the stomach HEART / MEDIASTINUM: No significant abnormality. LUNGS / PLEURA: Bronchovascular markings are prominent. No significant pulmonary or pleural abnormali ty. No pneumothorax. ADDITIONAL FINDINGS: IMPRESSION: 1. No acute cardiopulmonary disease Signer Name: Bentley Caldwell MD Signed: 04/24/2021 10:22 AM Workstation Name: [id number]
--- NOTE | 2021-04-24 10:34 | Progress Note ---
Assessment and Plan No further arrhythmias noted since admission. Given short duration of atrial fibrillation, along with pt's age, renal fxn, and other co-morbidities, would not recommend anticoagulation at this time. May be revisited if pt does not remain in sinus rhythm, or otherwise when clinically stable. Will resume additional medical therapies for underlying severe multi-vessel CAD (bASA & Plavix). Pt has previously declined intervention of known lesions as per her Primary [place]. Continue other present mgmt as per Primary teams. Pt seen in conjunction with Dr. Sue, who agrees with the assessment and plan of care. - Patient Problems (1) Acute encephalopathy Current Visit: Yes Status: Acute (2) Bradycardia Current Visit: Yes Status: Resolved (3) Atrial fibrillation Current Visit: Yes Status: Resolved Qualifiers: Atrial fibrillation type: paroxysmal Qualified Code(s): I48.0 - Paroxysmal atrial fibrillation Plan to address problem: < 24 hrs duration (4) UTI (urinary tract infection) Current Visit: Yes Status: Acute (5) Acute kidney injury superimposed on CKD Current Visit: Yes Status: Acute (6) CAD (coronary artery disease) Current Visit: Yes Status: Chronic Qualifiers: Coronary Disease-Associated Artery/Lesion type: [place] artery [place] vs. transplanted heart: [place] heart (7) HTN (hypertension) Current Visit: Yes Status: Chronic Qualifiers: Hypertension type: essential hypertension Qualified Code(s): I10 - Essential (primary) hypertension (8) HLD (hyperlipidemia) Current Visit: Yes Status: Chronic Qualifiers: Hyperlipidemia type: mixed hyperlipidemia Qualified Code(s): E78.2 - Mixed hyperlipidemia (9) DM2 (diabetes mellitus, type 2) Current Visit: Yes Status: Chronic (10) Hypothyroidism Current Visit: Yes Status: Chronic Subjective Date of service: 04/24/21 Principal diagnosis: AMS Interval history: No acute events reported overnight. On BiPAP this AM. Tele reviewed - SR 70-80s w/PACs, no events. Objective Last Vital Signs Temp 98.7 F 04/24/21 07:00 Pulse 84 04/24/21 10:18 Resp 27 H 04/24/21 08:04 BP 168/101 04/24/21 10:18 Pulse Ox 95 04/24/21 08:04 - Physical Examination General: No Apparent Distress HEENT: Positive: Normocephaly, Mucus Membranes Moist Neck: Positive: neck supple, trachea midline. Negative: JVD/HJR Cardiac: Positive: Reg Rate and Rhythm, S1/S2. Negative: Audible Murmur Lungs: Positive: Other (coarse anteriorly) Neuro: Positive: Other (unable to communicate) Abdomen: Positive: Unremarkable Skin: Negative: Rash Musculoskeletal: No Fluid Collection Extremities: Present: lower extr. pulses, edema - Labs and Meds Comprehensive Metabolic Panel 04/24/21 04/24/21 Range/Units 05:23 09:33 Sodium 137 (137-145) mmol/L Potassium 5.2 H D 4.3 (3.6-5.0) mmol/L Chloride 98.1 (98-107) mmol/L Carbon Dioxide 27 (22-30) mmol/L BUN 68 H (7-17) mg/dL Creatinine 2.3 H (0.6-1.2) mg/dL Glucose 277 H (65-100) mg/dL Calcium 9.9 (8.4-10.2) mg/dL - Imaging and Cardiology EKG: report reviewed, image reviewed Echo: report reviewed (04/15/2021 - EF 45-50%, mild concentric LVH, no LV thrombus, no significant valvular abnormalities) Cardiac cath: report reviewed (08/2017 - multivessal CAD (pLAD 70%, mid-distal LAD 70%, diag ostium 80%, Cfx/obtuse donovan 60%, RCA 80%, EF 60%, LVEDP 12mmHg) - Telemetry EKG Rhythm: Sinus Rhythm - EKG Sinus rhythms and dysrhythmias: sinus rhythm AV and intraventricular conduction: left bundle branch block - Allied health notes Allied health notes reviewed: nursing
--- NOTE | 2021-04-24 10:52 | Progress Note ---
Assessment and Plan This is a 80-year-old female with hypertension, diabetes mellitus, [place], breast cancer s/p double mastectomy, and a TIA who presented with hypoglycemia and altered mental status on 04/15 via EMS. Per EMS patient was unresponsive on their arrival and her blood glucose was 38 and she received 1 amp of dextrose patient continued to be unresponsive and only moaned with her eyes deviating to the left. Work-up in the emergency department revealed SIRS, symptomatic bradycardia, acute metabolic encephalopathy, acute hypoxic respiratory failure, elevated TSH, hyperglycemia, hyponatremia, hyperkalemia, acute kidney injury with ATN, and rhabdomyolysis. Patient is sleepy, and presently on BIPAP 14/8, rate 18,FIO2 28% and O2 saturation running 97%. Patient still having some increased shortness of breath on BIPAP. Obtaining ABGs. Patient is afebrile, Has mild leukocytosis. Chest x-ray done on 04/18/21 reported Mildly reduced lung volumes are again seen with probable bibasilar atelectasis. No significant pleural effusion. No pneumothorax. Repeat chest xray to day 04/24/21 reported no acute cardiopulmonary process. Medications include s/c heparin, famotidine. Recommend to increase solumedrol 60 mg I/V q 8 hours. Recommend albuterol / Atrovent aerosol treatments q6 hours. I spent critical care time of 45 minutes, review the chart, Examining the patient. review labs, chest xray, talking to the nursing staff, respiratory therapy and work out plan of treatment in this critically ill patient. - Patient Problems (1) Acute hypoxemic respiratory failure Current Visit: Yes Status: Acute Plan to address problem: Patient presently on BIPAP 14/8, rate 18,FIO2 28% Patient is on I/V solumedrol and s/c heparin and famotidine. Recommend to increase I/V solumedrol to 60 mg I/V q 8 hours. Recommend albuterol/Atrovent aerosol treatments q 6 hours. ABGs on BIPAP. (2) Acute kidney injury (ROJELIO) with acute tubular necrosis (ATN) Current Visit: Yes Status: Acute Plan to address problem: Management as per nephrology. (3) Acute metabolic encephalopathy due to hypoglycemia Current Visit: Yes Status: Acute Plan to address problem: Management as per primary care. (4) Ileus Current Visit: Yes Status: Acute Plan to address problem: Management as per primary care. (5) Non-STEMI (non-ST elevated myocardial infarction) Current Visit: Yes Status: Acute Plan to address problem: Management as per cardiology. (6) Status epilepticus Current Visit: Yes Status: Acute Plan to address problem: Management as per neurology. (7) Diabetes mellitus Current Visit: Yes Status: Chronic Plan to address problem: Management as per primary team. Subjective Date of service: 04/24/21 Principal diagnosis: AMS Interval history: This is a 80-year-old female with hypertension, diabetes mellitus, [place], breast cancer s/p double mastectomy, and a TIA who presented with hypoglycemia and altered mental status on 04/15 via EMS. Per EMS patient was unresponsive on their arrival and her blood glucose was 38 and she received 1 amp of dextrose patient continued to be unresponsive and only moaned with her eyes deviating to the left. Work-up in the emergency department revealed SIRS, symptomatic bradycardia, acute metabolic encephalopathy, acute hypoxic respiratory failure, elevated TSH, hyperglycemia, hyponatremia, hyperkalemia, acute kidney injury with ATN, and rhabdomyolysis. Patient is sleepy, and presently on BIPAP 14/8, rate 18,FIO2 28% and O2 saturation running 97%. Patient still having some increased shortness of breath on BIPAP. Obtaining ABGs. Patient is afebrile, Has mild leukocytosis. Chest x-ray done on 04/18/21 reported Mildly reduced lung volumes are again seen with probable bibasilar atelectasis. No significant pleural effusion. No pneumothorax. Repeat chest xray to day 04/24/21 reported no acute cardiopulmonary process. Medications include s/c heparin, famotidine. Recommend to increase solumedrol 60 mg I/V q 8 hours. Recommend albuterol / Atrovent aerosol treatments q6 hours. Objective Vital Signs - 12hr 04/23/21 04/23/21 04/23/21 23:01 23:14 23:31 Temperature Pulse Rate 86 86 97 H Respiratory 22 22 20 Rate Blood Pressure 185/80 185/80 185/80 O2 Sat by Pulse 99 98 94 Oximetry 04/23/21 04/23/21 04/23/21 23:41 23:44 23:50 Temperature 99.7 F H Pulse Rate 88 87 Respiratory 27 H 20 Rate Blood Pressure 185/80 O2 Sat by Pulse 98 97 Oximetry 05/04/24/21 04/24/21 23:53 00:01 00:31 Temperature Pulse Rate 89 97 H 87 Respiratory 29 H 32 H Rate Blood Pressure 185/80 185/80 185/80 O2 Sat by Pulse 94 98 Oximetry 04/24/21 04/24/21 04/24/21 00:56 01:01 01:31 Temperature Pulse Rate 86 94 H 95 H Respiratory 19 31 H 24 Rate Blood Pressure 185/60 187/94 180/81 O2 Sat by Pulse 99 93 97 Oximetry 04/24/21 04/24/21 04/24/21 02:01 02:31 03:01 Temperature Pulse Rate 97 H 95 H 77 Respiratory 28 H 34 H 19 Rate Blood Pressure 118/72 118/72 145/56 O2 Sat by Pulse 97 93 96 Oximetry 04/24/21 04/24/21 04/24/21 03:31 03:40 03:55 Temperature 99.2 F Pulse Rate 77 Respiratory 21 24 Rate Blood Pressure 145/56 O2 Sat by Pulse 97 97 Oximetry 04/24/21 04/24/21 04/24/21 04:00 04:31 04:34 Temperature Pulse Rate 109 H 76 77 Respiratory 30 H 20 21 Rate Blood Pressure 154/121 154/121 154/121 O2 Sat by Pulse 94 98 99 Oximetry 04/24/21 04/24/21 04/24/21 05:00 05:31 05:55 Temperature Pulse Rate 77 84 77 Respiratory 16 26 H 20 Rate Blood Pressure 164/80 164/80 O2 Sat by Pulse 99 97 97 Oximetry 04/24/21 04/24/21 04/24/21 06:01 07:00 08:04 Temperature 98.7 F Pulse Rate 86 115 H Respiratory 30 H 27 H Rate Blood Pressure 164/80 161/88 O2 Sat by Pulse 98 95 Oximetry 04/24/21 04/24/21 10:15 10:18 Temperature Pulse Rate 84 84 Respiratory Rate Blood Pressure 168/101 168/101 O2 Sat by Pulse Oximetry Constitutional: no acute distress, asleep, other (Some increased work of monserrat thing on BIPAP.) Eyes: non-icteric (Patient obese and having mild respiratory distress at rest) ENT: oropharynx moist, other (mild stridorous sounds) Neck: supple, no lymphadenopathy, no JVD, other (large circumference) Effort: mildly labored Ascultation: Bilateral: diminished breath sounds, rhonchi (scant), other (mild stridorous sounds) Percussion: Bilateral: not dull Cardiovascular: regular rate and rhythm Gastrointestinal: normoactive bowel sounds Integumentary: normal Extremities: no cyanosis, no edema, pulses normal, no ischemia or petechiae Neurologic: non-focal exam (grossly with intermittent spontaneous movement to extremities but ? mild posturing (decerebrate)), pupils equal and round, CN II- XII normal Psychiatric: mood appropriate, affect normal CBC and BMP: 04/22/21 08:00 04/24/21 09:33 ABG, PT/INR, D-dimer: ABG ABG pH 7.526 (7.320-7.450) H 04/20/21 02:56 POC ABG pCO2 35.7 mmHg (32.0-48.0) 04/20/21 02:56 POC ABG pO2 105.1 mmHg (83-108) 04/20/21 02:56 POC ABG HCO3 28.9 04/20/21 02:56 ABG O2 Saturation 98.2 (0-100) 04/20/21 02:56 PT/INR, D-dimer PT 12.2 Sec. (12.2-14.9) 04/15/21 17:20 INR 0.91 (0.87-1.13) 04/15/21 17:20 Abnormal lab findings: Abnormal Labs 04/15/21 04/15/21 04/15/21 17:20 17:20 17:20 WBC 11.2 H RBC Hct 43.0 H MCV RDW 15.3 H Plt Count Lymph % (Auto) 12.8 L Seg Neutrophils % 82.4 H Seg Neuts % (Manual) Lymphocytes % (Manual) Monocytes % (Manual) Seg Neutrophils # 9.3 H Seg Neutrophils # Man Lymphocytes # (Manual) Monocytes # (Manual) ABG pH POC ABG pCO2 POC ABG pO2 ABG Hemoglobin ABG Oxyhemoglobin ABG Sodium ABG Potassium ABG Chloride ABG Glucose Carboxyhemoglobin Sodium 129 L Potassium 7.1 H* Chloride 91.9 L BUN 35 H Creatinine 2.8 H Glucose POC Glucose Calcium Phosphorus Magnesium AST 69 H Total Creatine Kinase 1000 H CK-MB (CK-2) Troponin T Albumin HDL Cholesterol TSH Free T3 Index Arterial Blood Glucose Arterial Blood Ionized Calcium Urine pH Urine WBC (Auto) Urine Creatinine Acetaminophen 04/15/21 04/15/21 04/15/21 17:20 17:20 20:49 WBC RBC Hct MCV RDW Plt Count Lymph % (Auto) Seg Neutrophils % Seg Neuts % (Manual) Lymphocytes % (Manual) Monocytes % (Manual) Seg Neutrophils # Seg Neutrophils # Man Lymphocytes # (Manual) Monocytes # (Manual) ABG pH 7.557 H POC ABG pCO2 30.0 L POC ABG pO2 493.3 H ABG Hemoglobin ABG Oxyhemoglobin 99.0 H ABG Sodium 131.5 L ABG Potassium 4.7 H ABG Chloride 94.0 L ABG Glucose 218 H Carboxyhemoglobin Sodium Potassium Chloride BUN Creatinine Glucose POC Glucose Calcium Phosphorus Magnesium AST Total Creatine Kinase CK-MB (CK-2) Troponin T Albumin HDL Cholesterol TSH 14.190 H Free T3 Index Arterial Blood Glucose 218 H Arterial Blood Ionized Calcium 5.4 H Urine pH Urine WBC (Auto) Urine Creatinine Acetaminophen 5.0 L 04/15/21 04/15/21 04/16/21 21:23 23:15 00:09 WBC RBC Hct MCV RDW Plt Count Lymph % (Auto) Seg Neutrophils % Seg Neuts % (Manual) Lymphocytes % (Manual) Monocytes % (Manual) Seg Neutrophils # Seg Neutrophils # Man Lymphocytes # (Manual) Monocytes # (Manual) ABG pH POC ABG pCO2 POC ABG pO2 ABG Hemoglobin ABG Oxyhemoglobin ABG Sodium ABG Potassium ABG Chloride ABG Glucose Carboxyhemoglobin Sodium Potassium Chloride BUN Creatinine Glucose POC Glucose 173 H 207 H Calcium Phosphorus Magnesium AST Total Creatine Kinase CK-MB (CK-2) Troponin T Albumin HDL Cholesterol TSH Free T3 Index Arterial Blood Glucose Arterial Blood Ionized Calcium Urine pH 9.0 H Urine WBC (Auto) Urine Creatinine Acetaminophen 04/16/21 04/16/21 04/16/21 00:12 00:19 03:43 WBC RBC Hct MCV RDW Plt Count Lymph % (Auto) Seg Neutrophils % Seg Neuts % (Manual) Lymphocytes % (Manual) Monocytes % (Manual) Seg Neutrophils # Seg Neutrophils # Man Lymphocytes # (Manual) Monocytes # (Manual) ABG pH 7.461 H POC ABG pCO2 POC ABG pO2 ABG Hemoglobin ABG Oxyhemoglobin ABG Sodium 126.8 L ABG Potassium 5.4 H ABG Chloride 90.0 L ABG Glucose 325 H Carboxyhemoglobin Sodium Potassium 6.7 H* Chloride BUN Creatinine Glucose POC Glucose Calcium Phosphorus Magnesium AST Total Creatine Kinase CK-MB (CK-2) Troponin T Albumin HDL Cholesterol TSH Free T3 Index Arterial Blood Glucose 325 H Arterial Blood Ionized Calcium Urine pH Urine WBC (Auto) Urine Creatinine 24.4 H Acetaminophen 04/16/21 04/16/21 04/16/21 03:55 05:02 05:02 WBC 21.2 H RBC Hct 43.4 H MCV 98 H RDW Plt Count Lymph % (Auto) Seg Neutrophils % Seg Neuts % (Manual) 84.0 H Lymphocytes % (Manual) 2.0 L Monocytes % (Manual) 10.0 H Seg Neutrophils # Seg Neutrophils # Man 17.8 H Lymphocytes # (Manual) 0.4 L Monocytes # (Manual) 2.1 H ABG pH POC ABG pCO2 POC ABG pO2 ABG Hemoglobin ABG Oxyhemoglobin ABG Sodium ABG Potassium ABG Chloride ABG Glucose Carboxyhemoglobin Sodium 131 L Potassium 5.9 H Chloride 88.7 L BUN 34 H Creatinine 2.9 H Glucose 249 H POC Glucose 391 H Calcium 10.4 H Phosphorus Magnesium AST 65 H Total Creatine Kinase CK-MB (CK-2) Troponin T Albumin 3.8 L HDL Cholesterol TSH Free T3 Index Arterial Blood Glucose Arterial Blood Ionized Calcium Urine pH Urine WBC (Auto) Urine Creatinine Acetaminophen 04/16/21 04/16/21 04/16/21 11:34 16:09 18:15 WBC RBC Hct MCV RDW Plt Count Lymph % (Auto) Seg Neutrophils % Seg Neuts % (Manual) Lymphocytes % (Manual) Monocytes % (Manual) Seg Neutrophils # Seg Neutrophils # Man Lymphocytes # (Manual) Monocytes # (Manual) ABG pH POC ABG pCO2 POC ABG pO2 ABG Hemoglobin ABG Oxyhemoglobin ABG Sodium ABG Potassium ABG Chloride ABG Glucose Carboxyhemoglobin Sodium Potassium Chloride BUN Creatinine Glucose POC Glucose 382 H 300 H 287 H Calcium Phosphorus Magnesium AST Total Creatine Kinase CK-MB (CK-2) Troponin T Albumin HDL Cholesterol TSH Free T3 Index Arterial Blood Glucose Arterial Blood Ionized Calcium Urine pH Urine WBC (Auto) Urine Creatinine Acetaminophen 04/16/21 04/16/21 04/16/21 19:01 19:01 19:01 WBC RBC Hct MCV RDW Plt Count Lymph % (Auto) Seg Neutrophils % Seg Neuts % (Manual) Lymphocytes % (Manual) Monocytes % (Manual) Seg Neutrophils # Seg Neutrophils # Man Lymphocytes # (Manual) Monocytes # (Manual) ABG pH POC ABG pCO2 POC ABG pO2 ABG Hemoglobin ABG Oxyhemoglobin ABG Sodium ABG Potassium ABG Chloride ABG Glucose Carboxyhemoglobin Sodium 125 L Potassium 5.5 H 5.6 H Chloride 84.5 L BUN 37 H Creatinine 3.5 H Glucose 236 H POC Glucose Calcium Phosphorus Magnesium AST Total Creatine Kinase CK-MB (CK-2) Troponin T Albumin HDL Cholesterol TSH Free T3 Index 1.1 L Arterial Blood Glucose Arterial Blood Ionized Calcium Urine pH Urine WBC (Auto) Urine Creatinine Acetaminophen 04/16/21 04/17/21 04/17/21 23:48 03:09 05:04 WBC RBC Hct MCV RDW Plt Count Lymph % (Auto) Seg Neutrophils % Seg Neuts % (Manual) Lymphocytes % (Manual) Monocytes % (Manual) Seg Neutrophils # Seg Neutrophils # Man Lymphocytes # (Manual) Monocytes # (Manual) ABG pH 7.518 H POC ABG pCO2 POC ABG pO2 ABG Hemoglobin ABG Oxyhemoglobin ABG Sodium 126.4 L ABG Potassium ABG Chloride 89.0 L ABG Glucose 200 H Carboxyhemoglobin Sodium 129 L Potassium Chloride 86.1 L BUN 39 H Creatinine 3.5 H Glucose 202 H POC Glucose 243 H Calcium Phosphorus Magnesium AST Total Creatine Kinase 750 H CK-MB (CK-2) Troponin T 0.119 H* D Albumin HDL Cholesterol 61 H TSH Free T3 Index Arterial Blood Glucose 200 H Arterial Blood Ionized Calcium 4.4 L Urine pH Urine WBC (Auto) Urine Creatinine Acetaminophen 04/17/21 04/17/21 04/17/21 06:14 11:55 15:35 WBC RBC Hct MCV RDW Plt Count Lymph % (Auto) Seg Neutrophils % Seg Neuts % (Manual) Lymphocytes % (Manual) Monocytes % (Manual) Seg Neutrophils # Seg Neutrophils # Man Lymphocytes # (Manual) Monocytes # (Manual) ABG pH POC ABG pCO2 POC ABG pO2 ABG Hemoglobin ABG Oxyhemoglobin ABG Sodium ABG Potassium ABG Chloride ABG Glucose Carboxyhemoglobin Sodium Potassium Chloride BUN Creatinine Glucose POC Glucose 208 H 276 H Calcium Phosphorus Magnesium AST Total Creatine Kinase 615 H CK-MB (CK-2) 9.1 H Troponin T Albumin HDL Cholesterol TSH Free T3 Index Arterial Blood Glucose Arterial Blood Ionized Calcium Urine pH Urine WBC (Auto) Urine Creatinine Acetaminophen 04/17/21 04/17/21 04/18/21 15:35 17:07 00:01 WBC 17.1 H RBC Hct MCV RDW Plt Count Lymph % (Auto) Seg Neutrophils % Seg Neuts % (Manual) Lymphocytes % (Manual) Monocytes % (Manual) Seg Neutrophils # Seg Neutrophils # Man Lymphocytes # (Manual) Monocytes # (Manual) ABG pH POC ABG pCO2 POC ABG pO2 ABG Hemoglobin ABG Oxyhemoglobin ABG Sodium ABG Potassium ABG Chloride ABG Glucose Carboxyhemoglobin Sodium Potassium Chloride BUN Creatinine Glucose POC Glucose 148 H 192 H Calcium Phosphorus Magnesium AST Total Creatine Kinase CK-MB (CK-2) Troponin T Albumin HDL Cholesterol TSH Free T3 Index Arterial Blood Glucose Arterial Blood Ionized Calcium Urine pH Urine WBC (Auto) Urine Creatinine Acetaminophen 04/18/21 04/18/21 04/18/21 03:00 05:24 05:34 WBC 15.3 H RBC 3.34 L Hct MCV RDW 15.3 H Plt Count Lymph % (Auto) Seg Neutrophils % Seg Neuts % (Manual) Lymphocytes % (Manual) Monocytes % (Manual) Seg Neutrophils # Seg Neutrophils # Man Lymphocytes # (Manual) Monocytes # (Manual) ABG pH 7.497 H POC ABG pCO2 POC ABG pO2 77.7 L ABG Hemoglobin 10.4 L ABG Oxyhemoglobin ABG Sodium 129.7 L ABG Potassium 2.8 L ABG Chloride 92.0 L ABG Glucose 134 H Carboxyhemoglobin 0.3 L Sodium Potassium Chloride BUN Creatinine Glucose POC Glucose 162 H Calcium Phosphorus Magnesium AST Total Creatine Kinase CK-MB (CK-2) Troponin T Albumin HDL Cholesterol TSH Free T3 Index Arterial Blood Glucose 134 H Arterial Blood Ionized Calcium 4.3 L Urine pH Urine WBC (Auto) Urine Creatinine Acetaminophen 04/18/21 04/18/21 04/18/21 05:34 05:43 09:11 WBC RBC Hct MCV RDW Plt Count Lymph % (Auto) Seg Neutrophils % Seg Neuts % (Manual) Lymphocytes % (Manual) Monocytes % (Manual) Seg Neutrophils # Seg Neutrophils # Man Lymphocytes # (Manual) Monocytes # (Manual) ABG pH POC ABG pCO2 POC ABG pO2 ABG Hemoglobin ABG Oxyhemoglobin ABG Sodium ABG Potassium ABG Chloride ABG Glucose Carboxyhemoglobin Sodium 134 L Potassium 3.0 L D Chloride 93.5 L BUN 42 H Creatinine 3.1 H Glucose 152 H POC Glucose Calcium Phosphorus Magnesium 1.40 L AST Total Creatine Kinase 427 H CK-MB (CK-2) Troponin T 0.081 H D Albumin HDL Cholesterol TSH Free T3 Index Arterial Blood Glucose Arterial Blood Ionized Calcium Urine pH Urine WBC (Auto) 34.0 H Urine Creatinine Acetaminophen 04/18/21 04/18/21 04/18/21 11:34 17:24 23:18 WBC RBC Hct MCV RDW Plt Count Lymph % (Auto) Seg Neutrophils % Seg Neuts % (Manual) Lymphocytes % (Manual) Monocytes % (Manual) Seg Neutrophils # Seg Neutrophils # Man Lymphocytes # (Manual) Monocytes # (Manual) ABG pH POC ABG pCO2 POC ABG pO2 ABG Hemoglobin ABG Oxyhemoglobin ABG Sodium ABG Potassium ABG Chloride ABG Glucose Carboxyhemoglobin Sodium Potassium Chloride BUN Creatinine Glucose POC Glucose 170 H 151 H 182 H Calcium Phosphorus Magnesium AST Total Creatine Kinase CK-MB (CK-2) Troponin T Albumin HDL Cholesterol TSH Free T3 Index Arterial Blood Glucose Arterial Blood Ionized Calcium Urine pH Urine WBC (Auto) Urine Creatinine Acetaminophen 04/19/21 04/19/21 04/19/21 04:09 05:19 07:30 WBC 14.8 H RBC 3.20 L Hct MCV 98 H RDW Plt Count 137 L Lymph % (Auto) Seg Neutrophils % Seg Neuts % (Manual) Lymphocytes % (Manual) Monocytes % (Manual) Seg Neutrophils # Seg Neutrophils # Man Lymphocytes # (Manual) Monocytes # (Manual) ABG pH 7.476 H POC ABG pCO2 POC ABG pO2 79.4 L ABG Hemoglobin 10.7 L ABG Oxyhemoglobin ABG Sodium 131.2 L ABG Potassium 2.8 L ABG Chloride 94.0 L ABG Glucose 209 H Carboxyhemoglobin 0.3 L Sodium Potassium Chloride BUN Creatinine Glucose POC Glucose 204 H Calcium Phosphorus Magnesium AST Total Creatine Kinase CK-MB (CK-2) Troponin T Albumin HDL Cholesterol TSH Free T3 Index Arterial Blood Glucose 209 H Arterial Blood Ionized Calcium Urine pH Urine WBC (Auto) Urine Creatinine Acetaminophen 04/19/21 04/19/21 04/19/21 07:30 10:35 11:48 WBC RBC Hct MCV RDW Plt Count Lymph % (Auto) Seg Neutrophils % Seg Neuts % (Manual) Lymphocytes % (Manual) Monocytes % (Manual) Seg Neutrophils # Seg Neutrophils # Man Lymphocytes # (Manual) Monocytes # (Manual) ABG pH 7.464 H POC ABG pCO2 POC ABG pO2 81.8 L ABG Hemoglobin 10.8 L ABG Oxyhemoglobin ABG Sodium 129.6 L ABG Potassium ABG Chloride 95.0 L ABG Glucose 238 H Carboxyhemoglobin Sodium 133 L Potassium 2.8 L* Chloride 94.4 L BUN 43 H Creatinine 2.7 H Glucose 255 H POC Glucose 208 H Calcium 8.0 L Phosphorus Magnesium AST Total Creatine Kinase CK-MB (CK-2) Troponin T 0.060 H D Albumin HDL Cholesterol TSH Free T3 Index Arterial Blood Glucose 238 H Arterial Blood Ionized Calcium Urine pH Urine WBC (Auto) Urine Creatinine Acetaminophen 04/19/21 04/19/21 04/20/21 20:40 23:04 02:56 WBC RBC Hct MCV RDW Plt Count Lymph % (Auto) Seg Neutrophils % Seg Neuts % (Manual) Lymphocytes % (Manual) Monocytes % (Manual) Seg Neutrophils # Seg Neutrophils # Man Lymphocytes # (Manual) Monocytes # (Manual) ABG pH 7.526 H POC ABG pCO2 POC ABG pO2 ABG Hemoglobin 10.5 L ABG Oxyhemoglobin ABG Sodium 133.5 L ABG Potassium ABG Chloride ABG Glucose 157 H Carboxyhemoglobin 0.3 L Sodium Potassium 3.4 L D Chloride BUN Creatinine Glucose POC Glucose 173 H Calcium Phosphorus Magnesium AST Total Creatine Kinase CK-MB (CK-2) Troponin T Albumin HDL Cholesterol TSH Free T3 Index Arterial Blood Glucose 157 H Arterial Blood Ionized Calcium Urine pH Urine WBC (Auto) Urine Creatinine Acetaminophen 04/20/21 04/20/21 04/20/21 03:32 03:32 03:46 WBC 13.2 H RBC 3.18 L Hct MCV RDW Plt Count Lymph % (Auto) Seg Neutrophils % Seg Neuts % (Manual) Lymphocytes % (Manual) Monocytes % (Manual) Seg Neutrophils # Seg Neutrophils # Man Lymphocytes # (Manual) Monocytes # (Manual) ABG pH POC ABG pCO2 POC ABG pO2 ABG Hemoglobin ABG Oxyhemoglobin ABG Sodium ABG Potassium ABG Chloride ABG Glucose Carboxyhemoglobin Sodium 135 L Potassium Chloride 96.7 L BUN 40 H Creatinine 2.3 H Glucose 142 H POC Glucose Calcium Phosphorus 2.10 L Magnesium AST Total Creatine Kinase CK-MB (CK-2) Troponin T 0.065 H Albumin HDL Cholesterol TSH Free T3 Index Arterial Blood Glucose Arterial Blood Ionized Calcium Urine pH Urine WBC (Auto) Urine Creatinine Acetaminophen 04/20/21 04/20/21 04/20/21 05:42 11:50 17:09 WBC RBC Hct MCV RDW Plt Count Lymph % (Auto) Seg Neutrophils % Seg Neuts % (Manual) Lymphocytes % (Manual) Monocytes % (Manual) Seg Neutrophils # Seg Neutrophils # Man Lymphocytes # (Manual) Monocytes # (Manual) ABG pH POC ABG pCO2 POC ABG pO2 ABG Hemoglobin ABG Oxyhemoglobin ABG Sodium ABG Potassium ABG Chloride ABG Glucose Carboxyhemoglobin Sodium Potassium Chloride BUN Creatinine Glucose POC Glucose 160 H 194 H 153 H Calcium Phosphorus Magnesium AST Total Creatine Kinase CK-MB (CK-2) Troponin T Albumin HDL Cholesterol TSH Free T3 Index Arterial Blood Glucose Arterial Blood Ionized Calcium Urine pH Urine WBC (Auto) Urine Creatinine Acetaminophen 04/20/21 04/21/21 04/21/21 23:18 05:26 05:51 WBC RBC 3.20 L Hct MCV 99 H RDW 15.3 H Plt Count Lymph % (Auto) Seg Neutrophils % Seg Neuts % (Manual) Lymphocytes % (Manual) Monocytes % (Manual) Seg Neutrophils # Seg Neutrophils # Man Lymphocytes # (Manual) Monocytes # (Manual) ABG pH POC ABG pCO2 POC ABG pO2 ABG Hemoglobin ABG Oxyhemoglobin ABG Sodium ABG Potassium ABG Chloride ABG Glucose Carboxyhemoglobin Sodium Potassium Chloride BUN Creatinine Glucose POC Glucose 162 H 164 H Calcium Phosphorus Magnesium AST Total Creatine Kinase CK-MB (CK-2) Troponin T Albumin HDL Cholesterol TSH Free T3 Index Arterial Blood Glucose Arterial Blood Ionized Calcium Urine pH Urine WBC (Auto) Urine Creatinine Acetaminophen 04/21/21 04/21/21 04/21/21 05:51 12:12 17:13 WBC RBC Hct MCV RDW Plt Count Lymph % (Auto) Seg Neutrophils % Seg Neuts % (Manual) Lymphocytes % (Manual) Monocytes % (Manual) Seg Neutrophils # Seg Neutrophils # Man Lymphocytes # (Manual) Monocytes # (Manual) ABG pH POC ABG pCO2 POC ABG pO2 ABG Hemoglobin ABG Oxyhemoglobin ABG Sodium ABG Potassium ABG Chloride ABG Glucose Carboxyhemoglobin Sodium Potassium Chloride 96.6 L BUN 42 H Creatinine 2.1 H Glucose 171 H POC Glucose 167 H 178 H Calcium Phosphorus Magnesium AST Total Creatine Kinase CK-MB (CK-2) Troponin T Albumin HDL Cholesterol TSH Free T3 Index Arterial Blood Glucose Arterial Blood Ionized Calcium Urine pH Urine WBC (Auto) Urine Creatinine Acetaminophen 04/21/21 04/22/21 04/22/21 23:42 05:29 08:00 WBC 12.9 H RBC Hct MCV RDW Plt Count Lymph % (Auto) Seg Neutrophils % Seg Neuts % (Manual) Lymphocytes % (Manual) Monocytes % (Manual) Seg Neutrophils # Seg Neutrophils # Man Lymphocytes # (Manual) Monocytes # (Manual) ABG pH POC ABG pCO2 POC ABG pO2 ABG Hemoglobin ABG Oxyhemoglobin ABG Sodium ABG Potassium ABG Chloride ABG Glucose Carboxyhemoglobin Sodium Potassium Chloride BUN Creatinine Glucose POC Glucose 253 H 208 H Calcium Phosphorus Magnesium AST Total Creatine Kinase CK-MB (CK-2) Troponin T Albumin HDL Cholesterol TSH Free T3 Index Arterial Blood Glucose Arterial Blood Ionized Calcium Urine pH Urine WBC (Auto) Urine Creatinine Acetaminophen 04/22/21 04/22/21 04/22/21 08:00 12:06 17:34 WBC RBC Hct MCV RDW Plt Count Lymph % (Auto) Seg Neutrophils % Seg Neuts % (Manual) Lymphocytes % (Manual) Monocytes % (Manual) Seg Neutrophils # Seg Neutrophils # Man Lymphocytes # (Manual) Monocytes # (Manual) ABG pH POC ABG pCO2 POC ABG pO2 ABG Hemoglobin ABG Oxyhemoglobin ABG Sodium ABG Potassium ABG Chloride ABG Glucose Carboxyhemoglobin Sodium Potassium Chloride BUN 47 H Creatinine 1.9 H Glucose 252 H POC Glucose 298 H 259 H Calcium Phosphorus Magnesium AST Total Creatine Kinase CK-MB (CK-2) Troponin T Albumin HDL Cholesterol TSH Free T3 Index Arterial Blood Glucose Arterial Blood Ionized Calcium Urine pH Urine WBC (Auto) Urine Creatinine Acetaminophen 04/22/21 04/23/21 04/23/21 23:01 05:08 07:02 WBC RBC Hct MCV RDW Plt Count Lymph % (Auto) Seg Neutrophils % Seg Neuts % (Manual) Lymphocytes % (Manual) Monocytes % (Manual) Seg Neutrophils # Seg Neutrophils # Man Lymphocytes # (Manual) Monocytes # (Manual) ABG pH POC ABG pCO2 POC ABG pO2 ABG Hemoglobin ABG Oxyhemoglobin ABG Sodium ABG Potassium ABG Chloride ABG Glucose Carboxyhemoglobin Sodium Potassium Chloride 97.7 L BUN 57 H Creatinine 2.0 H Glucose 253 H POC Glucose 280 H 223 H Calcium Phosphorus Magnesium AST Total Creatine Kinase CK-MB (CK-2) Troponin T Albumin HDL Cholesterol TSH Free T3 Index Arterial Blood Glucose Arterial Blood Ionized Calcium Urine pH Urine WBC (Auto) Urine Creatinine Acetaminophen 04/23/21 04/23/21 04/23/21 11:57 17:33 23:15 WBC RBC Hct MCV RDW Plt Count Lymph % (Auto) Seg Neutrophils % Seg Neuts % (Manual) Lymphocytes % (Manual) Monocytes % (Manual) Seg Neutrophils # Seg Neutrophils # Man Lymphocytes # (Manual) Monocytes # (Manual) ABG pH POC ABG pCO2 POC ABG pO2 ABG Hemoglobin ABG Oxyhemoglobin ABG Sodium ABG Potassium ABG Chloride ABG Glucose Carboxyhemoglobin Sodium Potassium Chloride BUN Creatinine Glucose POC Glucose 310 H 235 H 197 H Calcium Phosphorus Magnesium AST Total Creatine Kinase CK-MB (CK-2) Troponin T Albumin HDL Cholesterol TSH Free T3 Index Arterial Blood Glucose Arterial Blood Ionized Calcium Urine pH Urine WBC (Auto) Urine Creatinine Acetaminophen 04/24/21 04/24/21 05:23 05:46 WBC RBC Hct MCV RDW Plt Count Lymph % (Auto) Seg Neutrophils % Seg Neuts % (Manual) Lymphocytes % (Manual) Monocytes % (Manual) Seg Neutrophils # Seg Neutrophils # Man Lymphocytes # (Manual) Monocytes # (Manual) ABG pH POC ABG pCO2 POC ABG pO2 ABG Hemoglobin ABG Oxyhemoglobin ABG Sodium ABG Potassium ABG Chloride ABG Glucose Carboxyhemoglobin Sodium Potassium 5.2 H D Chloride BUN 68 H Creatinine 2.3 H Glucose 277 H POC Glucose 274 H Calcium Phosphorus Magnesium AST Total Creatine Kinase CK-MB (CK-2) Troponin T Albumin HDL Cholesterol TSH Free T3 Index Arterial Blood Glucose Arterial Blood Ionized Calcium Urine pH Urine WBC (Auto) Urine Creatinine Acetaminophen Chest x-ray: report reviewed, image reviewed Additional Studies: CHEST 1 VIEW 04/24/21 INDICATION: shortness of breath COMPARISON: April 18, 2021 FINDINGS: SUPPORT DEVICES: Dobbhoff feeding tube has its tip in the stomach HEART / MEDIASTINUM: No significant abnormality. LUNGS / PLEURA: Bronchovascular markings are prominent. No significant pulmonary or pleural abnormality. No pneumothorax. ADDITIONAL FINDINGS: IMPRESSION: 1. No acute cardiopulmonary disease Allied health notes reviewed: nursing
[2021-04-24] MEDS ORDERED: LORazepam 2 MG/ML VIAL IV PRN (11:32)
[2021-04-24] MEDS ORDERED: amLODIPine 5 MG TAB PO ONE (12:00)
[2021-04-24] MEDS ORDERED: ETOMIDATE 20 MG/10 ML INJ IV ONE ×2 (12:16→13:08)
[2021-04-24] MEDS ORDERED: ROCURONIUM 50 MG/5 ML INJ IV ONE ×2 (12:16→13:09)
--- NOTE | 2021-04-24 12:18 | Event Note ---
Date: 04/24/21 Called to patients room due to increased work of breathing and respiratory distress - obvious stridorous sounds - abdominal / paradoxical breathing despite BIPAP support A&P: Acute Respiratory failure due to Stridor - intubated with Glideoscope RSI at bedside - etomidate 20 mg, Rocuronium 50 mg & propofol 200 mg used breanna-intubation - good color change on capnometer - CXR reviewed and shows ETT in good position - called patients nephew prior to intubation ensure full code status - adviced attending of need for ENT evaluation JUSTINA - tracheostomy recommended otherwise (Nephew will like ENT pre-evaluation before tracheostomy) .... total 45 mins CCT
[2021-04-24] MEDS ORDERED: SODIUM CHLORIDE 0.9% 1000 ML 1,000 ML ONE (12:55)
[2021-04-24] MEDS ORDERED: fentaNYL 100 MCG/2 ML INJ IV PRN (13:03)
[2021-04-24] MEDS ORDERED: fentaNYL DRIP Premix 2,000 MCG/100 ML BAG IV ONE (13:04)
[2021-04-24] MEDS: fentaNYL DRIP Premix 2,000 MCG/100 ML BAG IV SCH (13:10)
--- NOTE | 2021-04-24 13:31 | XRay Report ---
CHEST 1 VIEW INDICATION: intubation COMPARISON: April 24, 2021 0927 hours FINDINGS: SUPPORT DEVICES: Endotracheal tube has tip in good position. Dobbhoff feeding tube in good position w ith its tip below diaphragm HEART / MEDIASTINUM: No significant abnormality. LUNGS / PLEURA: Small left pleural effusion. No pneumothorax. ADDITIONAL FINDINGS: IMPRESSION: 1. No significant interval change compared to previous Signer Name: Bentley Caldwell MD Signed: 04/24/2021 1:27 PM Workstation Name: [id number]
[2021-04-24] MEDS: IPRATROPIUM/ALBUTEROL SULFATE 3 ML AMPUL.NEB IH SCH ×2 (15:20→20:41)
--- NOTE | 2021-04-24 15:41 | Cat Scan Report ---
CT neck wo con INDICATION / CLINICAL INFORMATION: 80 years Female; stridor. TECHNIQUE: Contiguous thin cut axial images obtained through the neck following IV contrast. Sagittal and jones l reconstructions performed by the technologist. All CT scans at this location are performed using CT dose reduction for ALARA by means of automated exposure control. COMPARISON: None available. FINDINGS: MUCOSAL SPACE: There is presence of endotracheal and nasogastric tubes in this patient with reported history of stridor. The motion and beam hardening degrade the image quality at. However, there is no clear evidence of focal lesions involving the visualized oral pharyngeal soft tissues. No definitive prevertebral soft tissue fluid collections are identified. LYMPH NODES: There are scattered smaller cervical lymph nodes which are nonspecific though likely ranjit ctive. There is no clear CT evidence of pathologic cervical adenopathy. SALIVARY GLANDS: The visualized parotid and submandibular glands appear to demonstrate fairly symmetr ic attenuation without calcification. THYROID GLAND: There is isoattenuation of the thyroid gland with atrophic changes of the left lateral no definitive focal lesions are identified on this noncontrast study. PARANASAL SINUSES: The visualized paranasal sinuses are pneumatized. There is mild scattered opacific ation of the right mastoid air cells in this intubated patient. SPINE: There is extensive decompressive laminectomy and anterior fusion involving visualized cervicot horacic spine. 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 VASCULAR STRUCTURES: There is moderate atherosclerotic calcification involving carotid bifurcations, greater on the left. IMPRESSION: 1. There is notable motion and beam hardening artifact in this patient with endotracheal and nasogast adama tubes as detailed above and correlation would be needed in this patient with given history of "st ridor". There is no clear CT evidence of significant inflammatory changes involving the visualized so ft tissues of the neck. Signer Name: Aldo Arguello MD Signed: 04/24/2021 3:37 PM Workstation Name: [id number]
[2021-04-24] MEDS: LATANOPROST 0.005% OPHTH SOLN 2.5 ML OU SCH (18:11)
[2021-04-24] MEDS: PRAVASTATIN 20 MG TAB PO SCH (21:21)
[2021-04-25] MEDS: INSULIN LISPRO 100 UNIT/ML SUB-Q SCH ×4 (00:21→18:09)
[2021-04-25] MEDS: IPRATROPIUM/ALBUTEROL SULFATE 3 ML AMPUL.NEB IH SCH ×4 (02:02→20:06)
--- NOTE | 2021-04-25 03:13 | XRay Report ---
CHEST 1 VIEW 0243 INDICATION / CLINICAL INFORMATION: follow up respiratory failure COMPARISON: 04/24/2021 FINDINGS: SUPPORT DEVICES: Stable HEART / MEDIASTINUM: Stable LUNGS / PLEURA: Mild increase in left basilar atelectatic changes is seen. Artifact overlies the righ t lung. Slightly congested appearance is noted. No pneumothorax. ADDITIONAL FINDINGS: No significant additional findings. Signer Name: Ganesh Olmos MD Signed: 04/25/2021 3:08 AM Workstation Name: [id number]
[2021-04-25 04:33] LABS: Hematocrit 32.5 % (30.3-42.9); Hemoglobin 10.4 gm/dl (10.1-14.3); Mean Corpuscular HGB Conc 32 % (30-34); Mean Corpuscular Volume 96 fl (79-97); Platelet Count 253 K/mm3 (140-440); Red Cell Distribution Width 14.9 % (13.2-15.2)
[2021-04-25 04:49] LABS: Calcium 9.4 mg/dL (8.4-10.2)
[2021-04-25] MEDS: fentaNYL DRIP Premix 2,000 MCG/100 ML BAG IV SCH (04:49)
[2021-04-25] MEDS: LEVOTHYROXINE 25 MCG TAB PO SCH (06:24)
--- NOTE | 2021-04-25 08:24 | Progress Note ---
Assessment and Plan Assessment and plan: This is a 80-year-old female with hypertension, diabetes mellitus, [place], breast cancer s/p double mastectomy, and a TIA who presented with hypoglycemia and altered mental status on 04/15 via EMS. Per EMS patient was unresponsive on their arrival and her blood glucose was 38 and she received 1 amp of dextrose patient continued to be unresponsive and only moaned with her eyes deviating to the left. Work-up in the emergency department revealed SIRS, symptomatic bradycardia, acute metabolic encephalopathy, acute hypoxic respiratory failure, elevated TSH, hyperglycemia, hyponatremia, hyperkalemia, acute kidney injury with ATN, and rhabdomyolysis 04/16: Neurology consulted, COVID-19 PCR negative, D10 drip decreased and eventually discontinued by [facility] and started on D5W for 1 L. Hydralazine as needed. Patient had hyper kalemia today and was treated with D50, insulin and Kayexalate. This time examination patient is on assist control tidal volume 450, rate of 16, PEEP of 6 and 25% FiO2. 04/17: Patient started on low-dose beta-angel per cardiology, CPAP trial again per [facility], BUN/creatinine holding steady and hypochloremia/hyponatremia slightly improved and hypokalemia has resolved. This morning a KUB was obtained which was concerning for ileus versus mechanical obstruction and surgery was c onsulted. Patient was made n.p.o. and NG tube placed to wall suction. Patient was given suppository. Per RN patient did not have a BM even though she was given Kayexalate yesterday. Will obtain a KUB in the a.m. Neurology was consulted yesterday and will await further recommendations. Nephew updated at bedside today, Carlos Romero. -[facility], cardiology, nephrology, neurology, nutrition consulted, appreciate recommendations -04/15 CT head shows age-related atrophic change, chronic small vessel ischemic change, no CT evidence of acute large vessel territory ischemic injury, hemorrhage or mass -04/15 echocardiogram shows left ventricular systolic function borderline, LVEF 45 to 50%, mild concentric LVH, paradoxical septal motion consistent with left bundle branch block with no clot identified in the left ventricle, calcified aortic valve without regurgitation or stenosis, trace MR, trace TR, no UT, RVSP is 24 mmHg -04/17 KUB shows gas-filled and dilated loops of small bowel noted over the upper abdomen largest measuring 5 cm concerning for ileus versus mechanical obstruction -04/18 KUB shows interval resolution of previously seen small bowel dilation -04/18 EEG pending 04/18: Neurology has ordered EEG/MRI B, CCM continues to wean MV. Persistent low grade temperature so we will obtain BCx2/UA. Patient has improving leukocytosis, hyponatremia, renal function studies and hypochloremia. She has hypokalemia today which is being repleted. Surgery has signed off today and has okayed r esumption of TF. [facility] will trial CPAP for longer today and plans to attempt extubation in AM. Family has requested transfer to [facility] and Dr. Gordon will attempt to contact transfer center. I updated her nephew, Carlos Romero over the phone today abouyt current events and update on transfer ([facility] will conduct a utilization review) 04/19: This morning patient is on CPAP trial at the time of examination, noted to be hypertensive and metoprolol increased to home dose, started on synthroid by [facility], lantus started re hyperglycemia, MRI completed with no acute findings. Severe hypokalemia (repleted and Mg pending). [facility] will contact CPAP trial again today with possible trial extubation tomorrow. 04/19 MRI brain shows no restricted diffusion, no hemorrhage,, no radiation, findings consistent with chronic microvascular disease, small bilateral mastoid effusions, mucosal thickening throughout the paranasal sinuses seen within the maxillary sinuses 04/20: Patient's leukocytosis and kidney function tests continue to improve. Patient is hypertensive overnight we will restart home hydralazine. [facility] plans to extubate patient today. Family is attempting to transfer to another facility. EEG pending, RT will atmept to contact airborne weapons technical manager. Urine culture grew gram negative rods. Increase in lantus 04/21: Increase in Lantus, repleted phos. Patient has started this afternoon and was given racemic epinephrine and started on steroids. Patient will have BiPAP as needed. We will recheck BMP in the a.m. renal function studies continues to decrease. Patient has been hypertensive on evaluation regimen has been changed. 04/22: Lantus increased for hyperglycemia and add amlodipine for better BP contr ol. Patient is on steroids. OT suctioned by RN with catheter in oral care kit and received copious amounts of secretions. Cr continues to decrease. Culture grew Pseudomonas and was changed in accordance to sensitivity. Kerr removed today after clearance from nephrology. 04/23: MRI of the brain was done and unremarkable. Will obtain reconsult to nephrology for further assistance as patient remains in profound encephalopathy despite improvement of blood sugar. Will repeat chest x-ray as patient does have significant congestion physical exam. Tube feeds still ongoing. Continue aspiration precautions. Continue antibiotics when completed for Pseudomonas management 04/24: Neurology input noted, patient unfortunately with no improvement mental status milton, continues with congestion, will defer with Manufacturing Engineering Technician for lasix in the setting of renal failure. will give kayexlate for hyperkalemia, still moans and groans, mittens in place. 04/25: Patient currently intubated, on restraints for safety, Profund encephalopathy persist, although awake she is not following any commands, Call placed to [facility] to see if they will accept transfer for ENT evaluation, while CT neck was negative, it was degraded by motion and unable to determent why patient had this stridor, Racemic Epinephrine was given Gil is on ICU saturation, but will call back with an ENT to discuss case. Renal function mildly worse, continue to monitor. Per cardiology, no further arrhythmias noted since admission. Given short duration of atrial fibrillation, along with pt's age, renal fxn, and other co-morbidities,...will resume additional medical therapies for underlying severe multi-vessel CAD (bASA & Plavix). Pt has previously declined intervention of known lesions as per her Primary Mobile Equipment Servicer. Acute metabolic encephalopathy-persist Acute hypoxic respiratory failure (extubated 04/20)- Re-intubated secondary to Stridor and paradoxical breathing First-degree heart block Resolved ileus versus mechanical obstruction Acute kidney injury with vasomotor nephropathy UTI, Pseudomonas Possible seizure activity Hyperkalemia Elevated TSH Mild rhabdomyolysis Hypertension Diabetes mellitus with hyperglycemia on admission CAD Chronic illness debilitymyopathy Obesity S/p antibiotic therapy x1, currently on abd for UTI -S/p D10 and D5W gtt, on TF -Accu-Cheks every 6, SSI, long acting insulin -S/p IV calcium gluconate, regular insulin, D50 -S/p transcutaneous pacing, intermittent demand pacer in place -Renal ultrasound pending -Blood pressure monitoring per protocol -IV hydralazine as needed -Avoid ACEi/ARB in setting of ROJELIO -Avoid AV arron blocking agents -Avoid nephrotoxic agents and renally dose medications -BB, add home antihtn regimen as needed -Iv abx -TSH 14.1, T4 4.1, T3 pending-started on levothyroxine -Provegil -s/p racemic epinephrine x2 -Steroids -BiPAP as needed -Trend CBC, BMP, CK DVT/GI prophylaxis: Heparin subcu, PPI, SCDs to bilateral lower extremities while in bed Disposition: IMCU The high probability of a clinically significant, sudden or life threatening deterioration of the [PULMONARY, CARDIAC, RENAL] system(s) required my full and direct attention, intervention and personal management. The aggregate critical care time was [35] minutes. This time is in addition to time spent performing reported procedures but includes the following: [X] Data Review and interpretation [X] Patient assessment and monitoring of vital signs [X] Documentation [X] Medication orders and management History Interval history: This is a 80-year-old female with HTN, DM, MN, breast CA s/p double mastectomy, TIA who presented with hypoglycemia, AMS who was admitted with SIRS, symptomatic bradycardia, acute metabolic encephalopathy, acute hypoxic respiratory failure, elevated TSH, hyperglycemia, hyponatremia, hypokalemia, ROJELIO and rhabdomyolysis. Patient seen and examined this morning RE-intubated, yesterday, remains with profound encephalopathy Hospitalist Physical - Physical exam Narrative exam: General appearance: Present: no acute distress, other lethargic. not following commands due to mental status change. ETT in place. - EENT Eyes: Present: PERRL, EOM intact, NG tube in place ENT: poor dentition - Neck Neck: Present: normal ROM - Respiratory Respiratory effort: normal Respiratory: bilateral: CTA, congested - Cardiovascular Rhythm: regular Heart Sounds: Present: S1 & S2. Absent: systolic murmur, diastolic murmur - Extremities Extremities: no ischemia, pulses intact, pulses symmetrical, normal temperature, normal color Extremity abnormal: edema Peripheral Pulses: within normal limits - Abdominal General gastrointestinal: soft, non-tender, non-distended - Integumentary Integumentary: Present: See full documentation per nursing skin assessment. O therwise appropriate for age - Psychiatric Psychiatric: Unable to fully examine - Neurologic Neurologic: moves all extremities - Allied Health Allied health notes reviewed: nursing, RT, social work - Constitutional Vitals: Temp Pulse Resp BP Pulse Ox 98.0 F 68 12 141/66 99 04/25/21 07:25 04/25/21 06:31 04/25/21 06:31 04/25/21 06:31 04/25/21 06:31 General appearance: Present: no acute distress, other (sedated) HEART Score - HEART Score Troponin: Troponin T 0.065 ng/mL (0.00-0.029) H 04/20/21 03:32 Results - Labs CBC & Chem 7: 04/25/21 03:56 04/25/21 03:56 Labs: Laboratory Last Values WBC 12.3 K/mm3 (4.5-11.0) H 04/25/21 03:56 RBC 3.40 M/mm3 (3.65-5.03) L 04/25/21 03:56 Hgb 10.4 gm/dl (10.1-14.3) 04/25/21 03:56 Hct 32.5 % (30.3-42.9) 04/25/21 03:56 MCV 96 fl (79-97) 04/25/21 03:56 MCH 31 pg (28-32) 04/25/21 03:56 MCHC 32 % (30-34) 04/25/21 03:56 RDW 14.9 % (13.2-15.2) 04/25/21 03:56 Plt Count 253 K/mm3 (140-440) 04/25/21 03:56 Lymph % (Auto) 12.8 % (13.4-35.0) L 04/15/21 17:20 [place] % (Auto) 4.1 % (0.0-7.3) 04/15/21 17:20 Eos % (Auto) 0.3 % (0.0-4.3) 04/15/21 17:20 Baso % (Auto) 0.4 % (0.0-1.8) 04/15/21 17:20 Lymph # (Auto) 1.4 K/mm3 (1.2-5.4) 04/15/21 17:20 [place] # (Auto) 0.5 K/mm3 (0.0-0.8) 04/15/21 17:20 Eos # (Auto) 0.0 K/mm3 (0.0-0.4) 04/15/21 17:20 Baso # (Auto) 0.0 K/mm3 (0.0-0.1) 04/15/21 17:20 Add Manual Diff Complete 04/16/21 05:02 Total Counted 100 04/16/21 05:02 Seg Neutrophils % 82.4 % (40.0-70.0) H 04/15/21 17:20 Seg Neuts % (Manual) 84.0 % (40.0-70.0) H 04/16/21 05:02 Band Neutrophils % 3.0 % 04/16/21 05:02 Lymphocytes % (Manual) 2.0 % (13.4-35.0) L 04/16/21 05:02 Monocytes % (Manual) 10.0 % (0.0-7.3) H 04/16/21 05:02 Metamyelocytes % 1.0 % 04/16/21 05:02 Nucleated RBC % Not Reportable 04/16/21 05:02 Seg Neutrophils # 9.3 K/mm3 (1.8-7.7) H 04/15/21 17:20 Seg Neutrophils # Man 17.8 K/mm3 (1.8-7.7) H 04/16/21 05:02 Band Neutrophils # 0.6 K/mm3 04/16/21 05:02 Lymphocytes # (Manual) 0.4 K/mm3 (1.2-5.4) L 04/16/21 05:02 Abs React Lymphs (Man) 0.0 K/mm3 04/16/21 05:02 Monocytes # (Manual) 2.1 K/mm3 (0.0-0.8) H 04/16/21 05:02 Eosinophils # (Manual) 0.0 K/mm3 (0.0-0.4) 04/16/21 05:02 Basophils # (Manual) 0.0 K/mm3 (0.0-0.1) 04/16/21 05:02 Metamyelocytes # 0.2 K/mm3 04/16/21 05:02 Myelocytes # 0.0 K/mm3 04/16/21 05:02 Promyelocytes # 0.0 K/mm3 04/16/21 05:02 Blast Cells # 0.0 K/mm3 04/16/21 05:02 WBC Morphology Not Reportable 04/16/21 05:02 Hypersegmented Neuts Not Reportable 04/16/21 05:02 Hyposegmented Neuts Not Reportable 04/16/21 05:02 Hypogranular Neuts Not Reportable 04/16/21 05:02 Smudge Cells Not Reportable 04/16/21 05:02 Toxic Granulation Not Reportable 04/16/21 05:02 Toxic Vacuolation Not Reportable 04/16/21 05:02 Dohle Bodies Not Reportable 04/16/21 05:02 Pelger-Huet Anomaly Not Reportable 04/16/21 05:02 Peterson Rods Not Reportable 04/16/21 05:02 Platelet Estimate Consistent w auto 04/16/21 05:02 Clumped Platelets Not Reportable 04/16/21 05:02 Plt Clumps, EDTA Not Reportable 04/16/21 05:02 Large Platelets Not Reportable 04/16/21 05:02 Giant Platelets Not Reportable 04/16/21 05:02 Platelet Satelliting Not Reportable 04/16/21 05:02 Plt Morphology Comment Not Reportable 04/16/21 05:02 RBC Morphology Not Reportable 04/16/21 05:02 Dimorphic RBCs Not Reportable 04/16/21 05:02 Polychromasia Not Reportable 04/16/21 05:02 Hypochromasia Not Reportable 04/16/21 05:02 Poikilocytosis Not Reportable 04/16/21 05:02 Anisocytosis Few 04/16/21 05:02 Microcytosis Not Reportable 04/16/21 05:02 Macrocytosis Not Reportable 04/16/21 05:02 Spherocytes Not Reportable 04/16/21 05:02 Pappenheimer Bodies Not Reportable 04/16/21 05:02 Sickle Cells Not Reportable 04/16/21 05:02 Target Cells Not Reportable 04/16/21 05:02 Tear Drop Cells Not Reportable 04/16/21 05:02 Ovalocytes Not Reportable 04/16/21 05:02 Helmet Cells Not Reportable 04/16/21 05:02 [place] Bodies Not Reportable 04/16/21 05:02 Sabattus Rings Not Reportable 04/16/21 05:02 Turpin Cells Not Reportable 04/16/21 05:02 Bite Cells Not Reportable 04/16/21 05:02 Crenated Cell Not Reportable 04/16/21 05:02 Elliptocytes Not Reportable 04/16/21 05:02 Acanthocytes (Spur) Not Reportable 04/16/21 05:02 Rouleaux Not Reportable 04/16/21 05:02 Hemoglobin C Crystals Not Reportable 04/16/21 05:02 Schistocytes Not Reportable 04/16/21 05:02 Malaria parasites Not Reportable 04/16/21 05:02 James Bodies Not Reportable 04/16/21 05:02 Hem Pathologist Commnt No 04/16/21 05:02 PT 12.2 Sec. (12.2-14.9) 04/15/21 17:20 INR 0.91 (0.87-1.13) 04/15/21 17:20 APTT 31.8 Sec. (24.2-36.6) 04/15/21 17:20 ABG pH 7.451 (7.320-7.450) H 04/25/21 03:06 POC ABG pCO2 45.2 mmHg (32.0-48.0) 04/25/21 03:06 POC ABG pO2 77.1 mmHg (83-108) L 04/25/21 03:06 POC ABG HCO3 30.8 04/25/21 03:06 ABG O2 Saturation 95.1 (0-100) 04/25/21 03:06 POC ABG Base Excess 6.1 04/25/21 03:06 ABG Hemoglobin 11.2 (12.0-17.5) L 04/25/21 03:06 ABG Oxyhemoglobin 94.1 (94-98) 04/25/21 03:06 ABG Methemoglobin 0.3 (0.0-1.5) 04/25/21 03:06 ABG Sodium 140.5 mmol/L (136.0-145.0) 04/25/21 03:06 ABG Potassium 3.9 mmol/L (3.40-4.50) 04/25/21 03:06 ABG Chloride 103.0 mmol/L (98-107) 04/25/21 03:06 ABG Glucose 165 mg/dL (65-95) H 04/25/21 03:06 Carboxyhemoglobin 0.7 (0.5-1.5) 04/25/21 03:06 FiO2 % 30.0 04/25/21 03:06 Sodium 140 mmol/L (137-145) 04/25/21 03:56 Potassium 4.0 mmol/L (3.6-5.0) 04/25/21 03:56 Chloride 101.4 mmol/L (98-107) 04/25/21 03:56 Carbon Dioxide 29 mmol/L (22-30) 04/25/21 03:56 Anion Gap 14 mmol/L 04/25/21 03:56 BUN 78 mg/dL (7-17) H 04/25/21 03:56 Creatinine 2.5 mg/dL (0.6-1.2) H 04/25/21 03:56 Estimated GFR 22 ml/min 04/25/21 03:56 BUN/Creatinine Ratio 31 % 04/25/21 03:56 Glucose 152 mg/dL (65-100) H 04/25/21 03:56 POC Glucose 141 mg/dL (70-105) H 04/24/21 23:48 Lactic Acid 1.50 mmol/L (0.7-2.0) 04/15/21 17:20 Calcium 9.4 mg/dL (8.4-10.2) 04/25/21 03:56 Phosphorus 2.60 mg/dL (2.5-4.5) 04/22/21 08:00 Magnesium 2.10 mg/dL (1.7-2.3) 04/23/21 07:02 Total Bilirubin 0.70 mg/dL (0.1-1.2) 04/16/21 05:02 AST 65 units/L (5-40) H 04/16/21 05:02 ALT 31 units/L (7-56) 04/16/21 05:02 Alkaline Phosphatase 79 units/L (35-129) 04/16/21 05:02 Ammonia 46.0 umol/L (25-60) 04/15/21 17:20 Total Creatine Kinase 427 units/L (30-135) H 04/18/21 05:34 CK-MB (CK-2) 9.1 ng/mL (0.0-4.0) H 04/17/21 15:35 CK-MB (CK-2) Rel Index 1.4 (0-4) 04/17/21 15:35 Troponin T 0.065 ng/mL (0.00-0.029) H 04/20/21 03:32 NT-Pro-B Natriuret Pep 697.9 pg/mL (0-900) 04/15/21 17:20 Total Protein 6.3 g/dL (6.3-8.2) D 04/16/21 05:02 Albumin 3.8 g/dL (3.9-5) L 04/16/21 05:02 Albumin/Globulin Ratio 1.5 % 04/16/21 05:02 Triglycerides 103 mg/dL (2-149) 04/17/21 05:04 Cholesterol 122 mg/dL (50-199) 04/17/21 05:04 LDL Cholesterol Direct 55 mg/dL (50-130) 04/17/21 05:04 HDL Cholesterol 61 mg/dL (40-59) H 04/17/21 05:04 Cholesterol/HDL Ratio 2.00 % 04/17/21 05:04 Procalcitonin 0.20 ng/mL (<0.15) 04/16/21 19:01 TSH 14.190 mlU/mL (0.270-4.200) H 04/15/21 17:20 Thyroxine (T4) 4.1 ug/dL (4.0-12.0) 04/16/21 19:01 Free T3 Index 1.1 pg/mL (2.3-4.2) L 04/16/21 19:01 Arterial Blood Glucose 165 mg/dL (65-95) H 04/25/21 03:06 Arterial Blood Ionized Calcium 5.2 mg/dL (4.6-5.3) 04/25/21 03:06 Urine Color Yellow (Yellow) 04/18/21 09:11 Urine Turbidity Clear (Clear) 04/18/21 09:11 Urine pH 6.0 (5.0-7.0) 04/18/21 09:11 Ur Specific [place] 1.014 (1.003-1.030) 04/18/21 09:11 Urine Protein >500 mg/dL (Negative) 04/18/21 09:11 Urine Glucose (UA) Neg mg/dL (Negative) 04/18/21 09:11 Urine Ketones Neg mg/dL (Negative) 04/18/21 09:11 Urine Blood Sm (Negative) 04/18/21 09:11 Urine Nitrite Neg (Negative) 04/18/21 09:11 Urine Bilirubin Neg (Negative) 04/18/21 09:11 Urine Urobilinogen 2.0 mg/dL (<2.0) 04/18/21 09:11 Ur Leukocyte Esterase Lg (Negative) 04/18/21 09:11 Urine WBC (Auto) 34.0 /HPF (0.0-6.0) H 04/18/21 09:11 Urine RBC (Auto) 18.0 /HPF (0.0-6.0) 04/18/21 09:11 U Epithel Cells (Auto) < 1.0 /HPF (0-13.0) 04/16/21 00:09 Urine Bacteria (Auto) 1+ /HPF (Negative) 04/16/21 00:09 Urine Creatinine 24.4 mg/dL (0.1-20.0) H 04/16/21 00:12 Urine Sodium 97 mmol/L 04/16/21 00:12 Salicylates 4.1 mg/dL (2.8-20.0) 04/15/21 17:20 Acetaminophen 5.0 ug/mL (10.0-30.0) L 04/15/21 17:20 Plasma/Serum Alcohol 0.02 % (0-0.07) 04/15/21 17:20 Coronavirus (PCR) Negative (Negative) 04/16/21 Unknown Microbiology: Microbiology 04/18/21 09:11 Urine,Clean Catch Urine Culture - Preliminary Pseudomonas Aeruginosa Kerr/IV: Voiding Method Indwelling Catheter Active Medications - Current Medications Current Medications: Generic Name Dose Route Start Last Admin Trade Name Freq PRN Reason Stop Dose Admin Acetaminophen 650 mg 04/15/21 19:11 04/19/21 23:33 Acetaminophen 325 Mg Tab PO 650 mg Q6H PRN Administration Pain MILD(1-3)/Fever >100.5/SEXTON Albuterol/Ipratropium 1 ampul 04/24/21 14:00 04/25/21 02:02 Ipratropium/Albuterol Sulfate 3 Ml Ampul.Neb IH 1 ampul Q6HRT WOLFGANG Administration Amlodipine Besylate 10 mg 04/25/21 10:00 Amlodipine 10 Mg Tab PO DAILY [facility] Lipase/Protease/Amylase 1 each 04/16/21 12:52 Lipase 10,500/Protease 25,000/Amylase 43,750 (Units) Dr Calvin FEEDTUBE PRN PRN For Clogged Feeding Tube Aspirin 81 mg 04/25/21 10:00 Aspirin 81 Mg Tab Chew PO QDAY WOLFGANG Bisacodyl 10 mg 04/17/21 11:01 04/17/21 13:46 Bisacodyl 10 Mg Rect Supp UT 10 mg QDAY PRN Administration Constipation Brimonidine Tartrate 1 drops 04/17/21 22:00 04/24/21 21:22 Brimonidine 0.15% Ophth Soln OU 1 drops BID WOLFGANG Administration Clopidogrel Bisulfate 75 mg 04/25/21 10:00 Clopidogrel 75 Mg Tab PO QDAY [facility] Epinephrine 0.5 ml 04/21/21 12:56 Epinephrine Racemic 2.25% 0.5ml Nebu IH Q4HRT PRN Shortness Of Breath Famotidine 20 mg 04/17/21 10:00 04/24/21 10:18 Famotidine 20 Mg Tab PO 20 mg DAILY [facility] Administration Fentanyl 50 mcg 04/24/21 13:03 Fentanyl 100 Mcg/2 Ml Inj IV Q10MIN PRN ANALGESIA Heparin Sodium (Porcine) 5,000 unit 04/15/21 22:00 04/24/21 21:19 Heparin 5,000 Unit/1 Ml Vial SUB-Q 5,000 unit Q12HR [facility] Administration Hydralazine HCl 10 mg 04/16/21 18:00 04/24/21 05:25 Hydralazine 20 Mg/1 Ml Inj IV 10 mg Q4HR PRN Administration Hypertension Hydralazine HCl 100 mg 04/21/21 14:00 04/24/21 20:30 Hydralazine 100 Mg Tab PO 100 mg TID [facility] Administration Hydrophilic Ointment 1 applic 04/15/21 17:24 Lip Therapy Vaseline TP Q2HR PRN Dry Lips Fentanyl Citrate 2,000 mcg in 100 mls @ 4.765 mls/hr 04/24/21 14:00 04/25/21 04:49 Fentanyl Drip Premix IV 1 mcg/kg/hr TITR WOLFGANG 4.765 mls/hr Administration Protocol 1 MCG/KG/HR Propofol 1,000 mg in 100 mls @ 2.859 mls/hr 04/24/21 14:00 04/25/21 04:00 Diprivan 10 Mg/Ml IV 5 mcg/kg/min TITR WOLFGANG 2.859 mls/hr Titration Protocol 5 MCG/KG/MIN Insulin Glargine 30 units 04/25/21 08:00 Insulin Glargine 100 Units/Ml SUB-Q QAMDIAB [facility] Insulin Human Lispro 0 unit 04/16/21 15:00 04/25/21 06:17 Insulin Lispro 100 Unit/Ml SUB-Q 3 unit Q6HR WOLFGANG Administration Protocol Latanoprost 1 drops 04/17/21 18:00 04/24/21 18:11 Latanoprost 0.005% Ophth Soln 2.5 Ml OU 1 drops QPM WOLFGANG Administration Levothyroxine Sodium 25 mcg 04/19/21 06:00 04/25/21 06:24 Levothyroxine 25 Mcg Tab PO 25 mcg DAILY@0600 [facility] Administration Lorazepam 1 mg 04/24/21 11:32 Lorazepam 2 Mg/Ml Vial IV Q12HR PRN Agitation Metoprolol Tartrate 25 mg 04/19/21 10:00 04/24/21 21:19 Metoprolol Tartrate 25 Mg Tab PO 25 mg BID WOLFGANG Administration Modafinil 100 mg 04/19/21 10:00 04/24/21 10:18 Modafinil 100 Mg Tab PO 100 mg QAM [facility] Administration Multi-Ingred Cream/Lotion/Oil/Oint 1 applic 04/15/21 17:24 04/16/21 11:19 Mineral Oil/Petrolatum, White Ophth Oint 3.5 Gm OU 1 applic Q4HR PRN Administration Dry Eye(s) Pravastatin Sodium 20 mg 04/19/21 22:00 04/24/21 21:21 Pravastatin 20 Mg Tab PO 20 mg QHS [facility] Administration Scopolamine 1 each 04/20/21 18:00 04/23/21 10:04 Scopolamine Transdermal Patch 72 Hr TD 1 each Q3D WOLFGANG Administration Simple Syrup 15 ml 04/16/21 12:52 Simple Syrup 15 Ml FEEDTUBE PRN PRN Hypoglycemia Simple Syrup 30 ml 04/16/21 12:52 Simple Syrup 15 Ml FEEDTUBE PRN PRN Hypoglycemia Sodium Bicarbonate 325 mg 04/16/21 12:52 Sodium Bicarbonate 325 Mg Tab FEEDTUBE PRN PRN For Clogged Feeding Tube Sodium Chloride 10 ml 04/15/21 22:00 04/24/21 21:23 Sodium Chloride 0.9% 10 Ml Flush Syringe IV 10 ml BID WOLFGANG Administration Sodium Chloride 10 ml 04/15/21 19:11 04/24/21 05:27 Sodium Chloride 0.9% 10 Ml Flush Syringe IV 10 ml PRN PRN Administration LINE FLUSH Timolol Maleate 1 drops 04/19/21 10:00 04/24/21 10:18 Timolol 0.5% Ophth Soln 5 Ml OU 1 drops QDAY WOLFGANG Administration Nutrition/Malnutrition Assess - Dietary Evaluation Nutrition/Malnutrition Findings: Nutrition Notes Start: 04/16/21 1 2:31 Freq: Status: Active Protocol: Document 04/23/21 11:37 MAYE (Rec: 04/23/21 11:53 MAYE [id number]) Nutrition Notes Initial or Follow up Reassessment Current Diagnosis Acute Kidney Injury,Coronary Artery Disease,Diabetes, Hypertension Other Pertinent Diagnosis UTI, acute metabolic encephalopathy Current Diet TF - Glucerna 1.2 at 50ml/hr Labs/Tests BUN 57 Cr 2 BG 253 Pertinent Medications Lantus, Solumedrol, Scopolamine Height 5 ft 6 in Weight 95.3 kg [place] Body Weight (kg) 59.09 BMI 33.9 Weight Status Obese Subjective/Other Information Spoke with RN via phone at 11: 32. Pt extubated on 04/20 and is tolerating TF at goal rate; receives 50ml water flush q4h . Percent of energy/protein needs met: 100% energy 61% pro Burn Absent Trauma Absent #1 Nutrition Diagnosis Inadequate oral intake Diagnosis Progress(for reassessment Continues documentation) Is patient on ventilator? No Is Patient Ambulatory and/or Out of Bed No REE-([facility]-confined to bed) 1728.336 Kcal/Kg value to use for calculation 13 Approximate Energy Requirements Using 1239 kcal/Kg Calculation Used for Recommendations Kcal/kg Additional Notes Pro needs >2g/kg IBW: >118g/ day Fluid needs 1ml/kcal Nutrition Intervention Nutrition Support: Continue Glucerna 1.2 at 50ml/ hr with 50ml water flush q4h. Kcal 1,440 Protein (gm) 72 Fluid (mL) 966 Goal #1 TF tolerance Goal #2 TF to meet energy and pro needs as best possible Follow-Up By: 05/31/21 Additional Comments F/U: stable TF, wt
--- NOTE | 2021-04-25 09:47 | Progress Note ---
Assessment and Plan Assessment and plan: This is a 80-year-old female with hypertension, diabetes mellitus, UT, breast cancer s/p double mastectomy, and a TIA who presented with hypoglycemia and altered mental status on 04/15 via EMS. Per EMS patient was unresponsive on their arrival and her blood glucose was 38 and she received 1 amp of dextrose patient continued to be unresponsive and only moaned with her eyes deviating to the left. Work-up in the emergency department revealed SIRS, symptomatic bradycardia, acute metabolic encephalopathy, acute hypoxic respiratory failure, elevated TSH, hyperglycemia, hyponatremia, hyperkalemia, acute kidney injury with ATN, and rhabdomyolysis #Acute metabolic encephalopathy- improvment today she open eyes and follow very simple command -move fingers both upper -she is intubated on propofol and fentanyl - MRI and echo is noted -EEG on 04/20 diffuse slowing # diffuse weakness -mostly related to bed rest -PT started - more interactive today #Acute hypoxic respiratory failure (extubated 04/20)---reintubated yesterday First-degree heart block Resolved ileus versus mechanical obstruction #Acute kidney injury UTI, Pseudomonas #No sign of seizure activity -EEG is remarkable for diffuse mild slowing #Elevated TSH #Mild rhabdomyolysis #Hypertension #Diabetes mellitus with hyperglycemia on admission #CAD #Chronic illness debilitymyopathy #Obesity DVT/GI prophylaxis: Heparin subcu, PPI, SCDs to bilateral lower extremities while in bed Disposition: IMCU PLAN 1- As above 2- she is slightly better today respond to verbal command ,she is with diffuse weakness 3- correct underlying elctrolytes and avoid Hypoglycemia, monitor kidney function 4- treat underlying infection 5- Respiratory compromize-- she is reniubated yesterday will sign off call as needed Subjective Date of service: 04/25/21 Principal diagnosis: AMS Interval history: History Interval history: This is a 80-year-old female with HTN, DM, UT, breast CA s/p double mastectomy, TIA who presented with hypoglycemia, AMS who was admitted with SIRS, symptomatic bradycardia, acute metabolic encephalopathy, acute hypoxic respiratory failure, elevated TSH, hyperglycemia, hyponatremia, hypokalemia, ROJELIO and rhabdomyolysis she required reintubation yesterday she is awak slightly follow command move upper slightly squeeze hand she is on Propofol and fentanyl. Objective - Vital Sign Vital Signs - 12hr 04/24/21 04/24/21 04/24/21 22:01 22:31 23:01 Temperature Pulse Rate 61 61 62 Pulse Rate [ Bilateral] Pulse Rate [ From Monitor] Respiratory 12 12 12 Rate Respiratory Rate [Bilateral ] Blood Pressure 123/52 115/49 114/58 O2 Sat by Pulse 98 98 98 Oximetry 04/24/21 04/24/21 04/25/21 23:05 23:31 00:00 Temperature Pulse Rate 59 L 60 Pulse Rate [ Bilateral] Pulse Rate [ 66 From Monitor] Respiratory 12 12 14 Rate Respiratory Rate [Bilateral ] Blood Pressure 114/58 109/47 O2 Sat by Pulse 99 98 98 Oximetry 04/25/21 04/25/21 04/25/21 00:01 00:02 00:31 Temperature Pulse Rate 62 58 L 60 Pulse Rate [ Bilateral] Pulse Rate [ From Monitor] Respiratory 12 Rate Respiratory Rate [Bilateral ] Blood Pressure 118/46 118/46 127/50 O2 Sat by Pulse 96 97 99 Oximetry 04/25/21 04/25/21 04/25/21 01:00 01:31 02:00 Temperature Pulse Rate 64 61 65 Pulse Rate [ Bilateral] Pulse Rate [ From Monitor] Respiratory 12 12 Rate Respiratory Rate [Bilateral ] Blood Pressure 131/56 131/57 134/65 O2 Sat by Pulse 99 98 97 Oximetry 04/25/21 04/25/21 04/25/21 02:01 02:31 03:00 Temperature Pulse Rate 61 68 Pulse Rate [ 69 Bilateral] Pulse Rate [ From Monitor] Respiratory 12 12 Rate Respiratory 12 Rate [Bilateral ] Blood Pressure 129/78 136/77 O2 Sat by Pulse 96 97 Oximetry 04/25/21 04/25/21 04/25/21 03:31 03:48 04:00 Temperature Pulse Rate 67 70 Pulse Rate [ Bilateral] Pulse Rate [ 66 From Monitor] Respiratory 12 14 Rate Respiratory Rate [Bilateral ] Blood Pressure 136/77 141/81 O2 Sat by Pulse 98 98 98 Oximetry 04/25/21 04/25/21 04/25/21 04:01 04:31 05:00 Temperature Pulse Rate 65 67 66 Pulse Rate [ Bilateral] Pulse Rate [ From Monitor] Respiratory 11 11 13 Rate Respiratory Rate [Bilateral ] Blood Pressure 118/64 123/74 144/58 O2 Sat by Pulse 99 99 100 Oximetry 04/25/21 04/25/21 04/25/21 05:31 06:00 06:01 Temperature Pulse Rate 76 67 Pulse Rate [ Bilateral] Pulse Rate [ 66 From Monitor] Respiratory 12 14 12 Rate Respiratory Rate [Bilateral ] Blood Pressure 152/58 152/55 O2 Sat by Pulse 97 98 98 Oximetry 04/25/21 04/25/21 04/25/21 06:31 07:01 07:25 Temperature 98.0 F Pulse Rate 68 71 Pulse Rate [ Bilateral] Pulse Rate [ From Monitor] Respiratory 12 12 Rate Respiratory Rate [Bilateral ] Blood Pressure 141/66 127/54 O2 Sat by Pulse 99 99 Oximetry 04/25/21 04/25/21 04/25/21 07:31 08:00 08:01 Temperature Pulse Rate 73 74 74 Pulse Rate [ Bilateral] Pulse Rate [ 66 From Monitor] Respiratory 12 12 Rate Respiratory Rate [Bilateral ] Blood Pressure 175/85 180/65 O2 Sat by Pulse 98 97 Oximetry 04/25/21 04/25/21 04/25/21 08:25 08:31 09:01 Temperature Pulse Rate 79 78 86 Pulse Rate [ Bilateral] Pulse Rate [ From Monitor] Respiratory 14 15 Rate Respiratory Rate [Bilateral ] Blood Pressure 171/16 171/106 169/74 O2 Sat by Pulse 96 94 97 Oximetry - General Apperance Constitutional: other (some what alert , follow simple command) - EENT EENT: PERRL, mucous membranes moist - Respiratory Respiratory: lungs clear, rales, rhonchi - Cardiovascular Cardiovascular: regular rate, normal S1, normal S2 Extremities: no peripheral edema bilat - Gastrointestinal Gastrointestinal: normoactive bowel sounds - Integumentary Integumentary: normal - Neurologic Cranial nerve examination: PERRL, EOMI, intact Speech examination: other (intubated) Detailed motor examination: grossly full strength in, full strength in all mariano, other - Laboratory Findings CBC and BMP: 04/25/21 03:56 04/25/21 03:56 Abnormal Lab Findings: Abnormal Labs 04/15/21 04/15/21 04/15/21 17:00 17:20 17:20 WBC 11.2 H RBC Hct 43.0 H MCV RDW 15.3 H Plt Count Lymph % (Auto) 12.8 L Seg Neutrophils % 82.4 H Seg Neuts % (Manual) Lymphocytes % (Manual) Monocytes % (Manual) Seg Neutrophils # 9.3 H Seg Neutrophils # Man Lymphocytes # (Manual) Monocytes # (Manual) ABG pH POC ABG pCO2 POC ABG pO2 ABG Hemoglobin ABG Oxyhemoglobin ABG Sodium ABG Potassium ABG Chloride ABG Glucose Carboxyhemoglobin Sodium 129 L Potassium 7.1 H* Chloride 91.9 L BUN 35 H Creatinine 2.8 H Glucose POC Glucose 191 H Calcium Phosphorus Magnesium AST 69 H Total Creatine Kinase CK-MB (CK-2) Troponin T Albumin HDL Cholesterol TSH Free T3 Index Arterial Blood Glucose Arterial Blood Ionized Calcium Urine pH Urine WBC (Auto) Urine Creatinine Acetaminophen 04/15/21 04/15/21 04/15/21 17:20 17:20 17:20 WBC RBC Hct MCV RDW Plt Count Lymph % (Auto) Seg Neutrophils % Seg Neuts % (Manual) Lymphocytes % (Manual) Monocytes % (Manual) Seg Neutrophils # Seg Neutrophils # Man Lymphocytes # (Manual) Monocytes # (Manual) ABG pH POC ABG pCO2 POC ABG pO2 ABG Hemoglobin ABG Oxyhemoglobin ABG Sodium ABG Potassium ABG Chloride ABG Glucose Carboxyhemoglobin Sodium Potassium Chloride BUN Creatinine Glucose POC Glucose Calcium Phosphorus Magnesium AST Total Creatine Kinase 1000 H CK-MB (CK-2) Troponin T Albumin HDL Cholesterol TSH 14.190 H Free T3 Index Arterial Blood Glucose Arterial Blood Ionized Calcium Urine pH Urine WBC (Auto) Urine Creatinine Acetaminophen 5.0 L 04/15/21 04/15/21 04/15/21 20:49 21:23 23:15 WBC RBC Hct MCV RDW Plt Count Lymph % (Auto) Seg Neutrophils % Seg Neuts % (Manual) Lymphocytes % (Manual) Monocytes % (Manual) Seg Neutrophils # Seg Neutrophils # Man Lymphocytes # (Manual) Monocytes # (Manual) ABG pH 7.557 H POC ABG pCO2 30.0 L POC ABG pO2 493.3 H ABG Hemoglobin ABG Oxyhemoglobin 99.0 H ABG Sodium 131.5 L ABG Potassium 4.7 H ABG Chloride 94.0 L ABG Glucose 218 H Carboxyhemoglobin Sodium Potassium Chloride BUN Creatinine Glucose POC Glucose 173 H 207 H Calcium Phosphorus Magnesium AST Total Creatine Kinase CK-MB (CK-2) Troponin T Albumin HDL Cholesterol TSH Free T3 Index Arterial Blood Glucose 218 H Arterial Blood Ionized Calcium 5.4 H Urine pH Urine WBC (Auto) Urine Creatinine Acetaminophen 04/16/21 04/16/21 04/16/21 00:09 00:12 00:19 WBC RBC Hct MCV RDW Plt Count Lymph % (Auto) Seg Neutrophils % Seg Neuts % (Manual) Lymphocytes % (Manual) Monocytes % (Manual) Seg Neutrophils # Seg Neutrophils # Man Lymphocytes # (Manual) Monocytes # (Manual) ABG pH POC ABG pCO2 POC ABG pO2 ABG Hemoglobin ABG Oxyhemoglobin ABG Sodium ABG Potassium ABG Chloride ABG Glucose Carboxyhemoglobin Sodium Potassium 6.7 H* Chloride BUN Creatinine Glucose POC Glucose Calcium Phosphorus Magnesium AST Total Creatine Kinase CK-MB (CK-2) Troponin T Albumin HDL Cholesterol TSH Free T3 Index Arterial Blood Glucose Arterial Blood Ionized Calcium Urine pH 9.0 H Urine WBC (Auto) Urine Creatinine 24.4 H Acetaminophen 04/16/21 04/16/21 04/16/21 03:43 03:55 05:02 WBC 21.2 H RBC Hct 43.4 H MCV 98 H RDW Plt Count Lymph % (Auto) Seg Neutrophils % Seg Neuts % (Manual) 84.0 H Lymphocytes % (Manual) 2.0 L Monocytes % (Manual) 10.0 H Seg Neutrophils # Seg Neutrophils # Man 17.8 H Lymphocytes # (Manual) 0.4 L Monocytes # (Manual) 2.1 H ABG pH 7.461 H POC ABG pCO2 POC ABG pO2 ABG Hemoglobin ABG Oxyhemoglobin ABG Sodium 126.8 L ABG Potassium 5.4 H ABG Chloride 90.0 L ABG Glucose 325 H Carboxyhemoglobin Sodium Potassium Chloride BUN Creatinine Glucose POC Glucose 391 H Calcium Phosphorus Magnesium AST Total Creatine Kinase CK-MB (CK-2) Troponin T Albumin HDL Cholesterol TSH Free T3 Index Arterial Blood Glucose 325 H Arterial Blood Ionized Calcium Urine pH Urine WBC (Auto) Urine Creatinine Acetaminophen 04/16/21 04/16/21 04/16/21 05:02 11:34 16:09 WBC RBC Hct MCV RDW Plt Count Lymph % (Auto) Seg Neutrophils % Seg Neuts % (Manual) Lymphocytes % (Manual) Monocytes % (Manual) Seg Neutrophils # Seg Neutrophils # Man Lymphocytes # (Manual) Monocytes # (Manual) ABG pH POC ABG pCO2 POC ABG pO2 ABG Hemoglobin ABG Oxyhemoglobin ABG Sodium ABG Potassium ABG Chloride ABG Glucose Carboxyhemoglobin Sodium 131 L Potassium 5.9 H Chloride 88.7 L BUN 34 H Creatinine 2.9 H Glucose 249 H POC Glucose 382 H 300 H Calcium 10.4 H Phosphorus Magnesium AST 65 H Total Creatine Kinase CK-MB (CK-2) Troponin T Albumin 3.8 L HDL Cholesterol TSH Free T3 Index Arterial Blood Glucose Arterial Blood Ionized Calcium Urine pH Urine WBC (Auto) Urine Creatinine Acetaminophen 04/16/21 04/16/21 04/16/21 18:15 19:01 19:01 WBC RBC Hct MCV RDW Plt Count Lymph % (Auto) Seg Neutrophils % Seg Neuts % (Manual) Lymphocytes % (Manual) Monocytes % (Manual) Seg Neutrophils # Seg Neutrophils # Man Lymphocytes # (Manual) Monocytes # (Manual) ABG pH POC ABG pCO2 POC ABG pO2 ABG Hemoglobin ABG Oxyhemoglobin ABG Sodium ABG Potassium ABG Chloride ABG Glucose Carboxyhemoglobin Sodium 125 L Potassium 5.5 H Chloride 84.5 L BUN 37 H Creatinine 3.5 H Glucose 236 H POC Glucose 287 H Calcium Phosphorus Magnesium AST Total Creatine Kinase CK-MB (CK-2) Troponin T Albumin HDL Cholesterol TSH Free T3 Index 1.1 L Arterial Blood Glucose Arterial Blood Ionized Calcium Urine pH Urine WBC (Auto) Urine Creatinine Acetaminophen 04/16/21 04/16/21 04/17/21 19:01 23:48 03:09 WBC RBC Hct MCV RDW Plt Count Lymph % (Auto) Seg Neutrophils % Seg Neuts % (Manual) Lymphocytes % (Manual) Monocytes % (Manual) Seg Neutrophils # Seg Neutrophils # Man Lymphocytes # (Manual) Monocytes # (Manual) ABG pH 7.518 H POC ABG pCO2 POC ABG pO2 ABG Hemoglobin ABG Oxyhemoglobin ABG Sodium 126.4 L ABG Potassium ABG Chloride 89.0 L ABG Glucose 200 H Carboxyhemoglobin Sodium Potassium 5.6 H Chloride BUN Creatinine Glucose POC Glucose 243 H Calcium Phosphorus Magnesium AST Total Creatine Kinase CK-MB (CK-2) Troponin T Albumin HDL Cholesterol TSH Free T3 Index Arterial Blood Glucose 200 H Arterial Blood Ionized Calcium 4.4 L Urine pH Urine WBC (Auto) Urine Creatinine Acetaminophen 04/17/21 04/17/21 04/17/21 05:04 06:14 11:55 WBC RBC Hct MCV RDW Plt Count Lymph % (Auto) Seg Neutrophils % Seg Neuts % (Manual) Lymphocytes % (Manual) Monocytes % (Manual) Seg Neutrophils # Seg Neutrophils # Man Lymphocytes # (Manual) Monocytes # (Manual) ABG pH POC ABG pCO2 POC ABG pO2 ABG Hemoglobin ABG Oxyhemoglobin ABG Sodium ABG Potassium ABG Chloride ABG Glucose Carboxyhemoglobin Sodium 129 L Potassium Chloride 86.1 L BUN 39 H Creatinine 3.5 H Glucose 202 H POC Glucose 208 H 276 H Calcium Phosphorus Magnesium AST Total Creatine Kinase 750 H CK-MB (CK-2) Troponin T 0.119 H* D Albumin HDL Cholesterol 61 H TSH Free T3 Index Arterial Blood Glucose Arterial Blood Ionized Calcium Urine pH Urine WBC (Auto) Urine Creatinine Acetaminophen 04/17/21 04/17/21 04/17/21 15:35 15:35 17:07 WBC 17.1 H RBC Hct MCV RDW Plt Count Lymph % (Auto) Seg Neutrophils % Seg Neuts % (Manual) Lymphocytes % (Manual) Monocytes % (Manual) Seg Neutrophils # Seg Neutrophils # Man Lymphocytes # (Manual) Monocytes # (Manual) ABG pH POC ABG pCO2 POC ABG pO2 ABG Hemoglobin ABG Oxyhemoglobin ABG Sodium ABG Potassium ABG Chloride ABG Glucose Carboxyhemoglobin Sodium Potassium Chloride BUN Creatinine Glucose POC Glucose 148 H Calcium Phosphorus Magnesium AST Total Creatine Kinase 615 H CK-MB (CK-2) 9.1 H Troponin T Albumin HDL Cholesterol TSH Free T3 Index Arterial Blood Glucose Arterial Blood Ionized Calcium Urine pH Urine WBC (Auto) Urine Creatinine Acetaminophen 04/18/21 04/18/21 04/18/21 00:01 03:00 05:24 WBC RBC Hct MCV RDW Plt Count Lymph % (Auto) Seg Neutrophils % Seg Neuts % (Manual) Lymphocytes % (Manual) Monocytes % (Manual) Seg Neutrophils # Seg Neutrophils # Man Lymphocytes # (Manual) Monocytes # (Manual) ABG pH 7.497 H POC ABG pCO2 POC ABG pO2 77.7 L ABG Hemoglobin 10.4 L ABG Oxyhemoglobin ABG Sodium 129.7 L ABG Potassium 2.8 L ABG Chloride 92.0 L ABG Glucose 134 H Carboxyhemoglobin 0.3 L Sodium Potassium Chloride BUN Creatinine Glucose POC Glucose 192 H 162 H Calcium Phosphorus Magnesium AST Total Creatine Kinase CK-MB (CK-2) Troponin T Albumin HDL Cholesterol TSH Free T3 Index Arterial Blood Glucose 134 H Arterial Blood Ionized Calcium 4.3 L Urine pH Urine WBC (Auto) Urine Creatinine Acetaminophen 04/18/21 04/18/21 04/18/21 05:34 05:34 05:43 WBC 15.3 H RBC 3.34 L Hct MCV RDW 15.3 H Plt Count Lymph % (Auto) Seg Neutrophils % Seg Neuts % (Manual) Lymphocytes % (Manual) Monocytes % (Manual) Seg Neutrophils # Seg Neutrophils # Man Lymphocytes # (Manual) Monocytes # (Manual) ABG pH POC ABG pCO2 POC ABG pO2 ABG Hemoglobin ABG Oxyhemoglobin ABG Sodium ABG Potassium ABG Chloride ABG Glucose Carboxyhemoglobin Sodium 134 L Potassium 3.0 L D Chloride 93.5 L BUN 42 H Creatinine 3.1 H Glucose 152 H POC Glucose Calcium Phosphorus Magnesium 1.40 L AST Total Creatine Kinase 427 H CK-MB (CK-2) Troponin T 0.081 H D Albumin HDL Cholesterol TSH Free T3 Index Arterial Blood Glucose Arterial Blood Ionized Calcium Urine pH Urine WBC (Auto) Urine Creatinine Acetaminophen 04/18/21 04/18/21 04/18/21 09:11 11:34 17:24 WBC RBC Hct MCV RDW Plt Count Lymph % (Auto) Seg Neutrophils % Seg Neuts % (Manual) Lymphocytes % (Manual) Monocytes % (Manual) Seg Neutrophils # Seg Neutrophils # Man Lymphocytes # (Manual) Monocytes # (Manual) ABG pH POC ABG pCO2 POC ABG pO2 ABG Hemoglobin ABG Oxyhemoglobin ABG Sodium ABG Potassium ABG Chloride ABG Glucose Carboxyhemoglobin Sodium Potassium Chloride BUN Creatinine Glucose POC Glucose 170 H 151 H Calcium Phosphorus Magnesium AST Total Creatine Kinase CK-MB (CK-2) Troponin T Albumin HDL Cholesterol TSH Free T3 Index Arterial Blood Glucose Arterial Blood Ionized Calcium Urine pH Urine WBC (Auto) 34.0 H Urine Creatinine Acetaminophen 04/18/21 04/19/21 04/19/21 23:18 04:09 05:19 WBC RBC Hct MCV RDW Plt Count Lymph % (Auto) Seg Neutrophils % Seg Neuts % (Manual) Lymphocytes % (Manual) Monocytes % (Manual) Seg Neutrophils # Seg Neutrophils # Man Lymphocytes # (Manual) Monocytes # (Manual) ABG pH 7.476 H POC ABG pCO2 POC ABG pO2 79.4 L ABG Hemoglobin 10.7 L ABG Oxyhemoglobin ABG Sodium 131.2 L ABG Potassium 2.8 L ABG Chloride 94.0 L ABG Glucose 209 H Carboxyhemoglobin 0.3 L Sodium Potassium Chloride BUN Creatinine Glucose POC Glucose 182 H 204 H Calcium Phosphorus Magnesium AST Total Creatine Kinase CK-MB (CK-2) Troponin T Albumin HDL Cholesterol TSH Free T3 Index Arterial Blood Glucose 209 H Arterial Blood Ionized Calcium Urine pH Urine WBC (Auto) Urine Creatinine Acetaminophen 04/19/21 04/19/21 04/19/21 07:30 07:30 10:35 WBC 14.8 H RBC 3.20 L Hct MCV 98 H RDW Plt Count 137 L Lymph % (Auto) Seg Neutrophils % Seg Neuts % (Manual) Lymphocytes % (Manual) Monocytes % (Manual) Seg Neutrophils # Seg Neutrophils # Man Lymphocytes # (Manual) Monocytes # (Manual) ABG pH 7.464 H POC ABG pCO2 POC ABG pO2 81.8 L ABG Hemoglobin 10.8 L ABG Oxyhemoglobin ABG Sodium 129.6 L ABG Potassium ABG Chloride 95.0 L ABG Glucose 238 H Carboxyhemoglobin Sodium 133 L Potassium 2.8 L* Chloride 94.4 L BUN 43 H Creatinine 2.7 H Glucose 255 H POC Glucose Calcium 8.0 L Phosphorus Magnesium AST Total Creatine Kinase CK-MB (CK-2) Troponin T 0.060 H D Albumin HDL Cholesterol TSH Free T3 Index Arterial Blood Glucose 238 H Arterial Blood Ionized Calcium Urine pH Urine WBC (Auto) Urine Creatinine Acetaminophen 04/19/21 04/19/21 04/19/21 11:48 20:40 23:04 WBC RBC Hct MCV RDW Plt Count Lymph % (Auto) Seg Neutrophils % Seg Neuts % (Manual) Lymphocytes % (Manual) Monocytes % (Manual) Seg Neutrophils # Seg Neutrophils # Man Lymphocytes # (Manual) Monocytes # (Manual) ABG pH POC ABG pCO2 POC ABG pO2 ABG Hemoglobin ABG Oxyhemoglobin ABG Sodium ABG Potassium ABG Chloride ABG Glucose Carboxyhemoglobin Sodium Potassium 3.4 L D Chloride BUN Creatinine Glucose POC Glucose 208 H 173 H Calcium Phosphorus Magnesium AST Total Creatine Kinase CK-MB (CK-2) Troponin T Albumin HDL Cholesterol TSH Free T3 Index Arterial Blood Glucose Arterial Blood Ionized Calcium Urine pH Urine WBC (Auto) Urine Creatinine Acetaminophen 04/20/21 04/20/21 04/20/21 02:56 03:32 03:32 WBC 13.2 H RBC 3.18 L Hct MCV RDW Plt Count Lymph % (Auto) Seg Neutrophils % Seg Neuts % (Manual) Lymphocytes % (Manual) Monocytes % (Manual) Seg Neutrophils # Seg Neutrophils # Man Lymphocytes # (Manual) Monocytes # (Manual) ABG pH 7.526 H POC ABG pCO2 POC ABG pO2 ABG Hemoglobin 10.5 L ABG Oxyhemoglobin ABG Sodium 133.5 L ABG Potassium ABG Chloride ABG Glucose 157 H Carboxyhemoglobin 0.3 L Sodium 135 L Potassium Chloride 96.7 L BUN 40 H Creatinine 2.3 H Glucose 142 H POC Glucose Calcium Phosphorus Magnesium AST Total Creatine Kinase CK-MB (CK-2) Troponin T 0.065 H Albumin HDL Cholesterol TSH Free T3 Index Arterial Blood Glucose 157 H Arterial Blood Ionized Calcium Urine pH Urine WBC (Auto) Urine Creatinine Acetaminophen 04/20/21 04/20/21 04/20/21 03:46 05:42 11:50 WBC RBC Hct MCV RDW Plt Count Lymph % (Auto) Seg Neutrophils % Seg Neuts % (Manual) Lymphocytes % (Manual) Monocytes % (Manual) Seg Neutrophils # Seg Neutrophils # Man Lymphocytes # (Manual) Monocytes # (Manual) ABG pH POC ABG pCO2 POC ABG pO2 ABG Hemoglobin ABG Oxyhemoglobin ABG Sodium ABG Potassium ABG Chloride ABG Glucose Carboxyhemoglobin Sodium Potassium Chloride BUN Creatinine Glucose POC Glucose 160 H 194 H Calcium Phosphorus 2.10 L Magnesium AST Total Creatine Kinase CK-MB (CK-2) Troponin T Albumin HDL Cholesterol TSH Free T3 Index Arterial Blood Glucose Arterial Blood Ionized Calcium Urine pH Urine WBC (Auto) Urine Creatinine Acetaminophen 04/20/21 04/20/21 04/21/21 17:09 23:18 05:26 WBC RBC Hct MCV RDW Plt Count Lymph % (Auto) Seg Neutrophils % Seg Neuts % (Manual) Lymphocytes % (Manual) Monocytes % (Manual) Seg Neutrophils # Seg Neutrophils # Man Lymphocytes # (Manual) Monocytes # (Manual) ABG pH POC ABG pCO2 POC ABG pO2 ABG Hemoglobin ABG Oxyhemoglobin ABG Sodium ABG Potassium ABG Chloride ABG Glucose Carboxyhemoglobin Sodium Potassium Chloride BUN Creatinine Glucose POC Glucose 153 H 162 H 164 H Calcium Phosphorus Magnesium AST Total Creatine Kinase CK-MB (CK-2) Troponin T Albumin HDL Cholesterol TSH Free T3 Index Arterial Blood Glucose Arterial Blood Ionized Calcium Urine pH Urine WBC (Auto) Urine Creatinine Acetaminophen 04/21/21 04/21/21 04/21/21 05:51 05:51 12:12 WBC RBC 3.20 L Hct MCV 99 H RDW 15.3 H Plt Count Lymph % (Auto) Seg Neutrophils % Seg Neuts % (Manual) Lymphocytes % (Manual) Monocytes % (Manual) Seg Neutrophils # Seg Neutrophils # Man Lymphocytes # (Manual) Monocytes # (Manual) ABG pH POC ABG pCO2 POC ABG pO2 ABG Hemoglobin ABG Oxyhemoglobin ABG Sodium ABG Potassium ABG Chloride ABG Glucose Carboxyhemoglobin Sodium Potassium Chloride 96.6 L BUN 42 H Creatinine 2.1 H Glucose 171 H POC Glucose 167 H Calcium Phosphorus Magnesium AST Total Creatine Kinase CK-MB (CK-2) Troponin T Albumin HDL Cholesterol TSH Free T3 Index Arterial Blood Glucose Arterial Blood Ionized Calcium Urine pH Urine WBC (Auto) Urine Creatinine Acetaminophen 04/21/21 04/21/21 04/22/21 17:13 23:42 05:29 WBC RBC Hct MCV RDW Plt Count Lymph % (Auto) Seg Neutrophils % Seg Neuts % (Manual) Lymphocytes % (Manual) Monocytes % (Manual) Seg Neutrophils # Seg Neutrophils # Man Lymphocytes # (Manual) Monocytes # (Manual) ABG pH POC ABG pCO2 POC ABG pO2 ABG Hemoglobin ABG Oxyhemoglobin ABG Sodium ABG Potassium ABG Chloride ABG Glucose Carboxyhemoglobin Sodium Potassium Chloride BUN Creatinine Glucose POC Glucose 178 H 253 H 208 H Calcium Phosphorus Magnesium AST Total Creatine Kinase CK-MB (CK-2) Troponin T Albumin HDL Cholesterol TSH Free T3 Index Arterial Blood Glucose Arterial Blood Ionized Calcium Urine pH Urine WBC (Auto) Urine Creatinine Acetaminophen 04/22/21 04/22/21 04/22/21 08:00 08:00 12:06 WBC 12.9 H RBC Hct MCV RDW Plt Count Lymph % (Auto) Seg Neutrophils % Seg Neuts % (Manual) Lymphocytes % (Manual) Monocytes % (Manual) Seg Neutrophils # Seg Neutrophils # Man Lymphocytes # (Manual) Monocytes # (Manual) ABG pH POC ABG pCO2 POC ABG pO2 ABG Hemoglobin ABG Oxyhemoglobin ABG Sodium ABG Potassium ABG Chloride ABG Glucose Carboxyhemoglobin Sodium Potassium Chloride BUN 47 H Creatinine 1.9 H Glucose 252 H POC Glucose 298 H Calcium Phosphorus Magnesium AST Total Creatine Kinase CK-MB (CK-2) Troponin T Albumin HDL Cholesterol TSH Free T3 Index Arterial Blood Glucose Arterial Blood Ionized Calcium Urine pH Urine WBC (Auto) Urine Creatinine Acetaminophen 04/22/21 04/22/21 04/23/21 17:34 23:01 05:08 WBC RBC Hct MCV RDW Plt Count Lymph % (Auto) Seg Neutrophils % Seg Neuts % (Manual) Lymphocytes % (Manual) Monocytes % (Manual) Seg Neutrophils # Seg Neutrophils # Man Lymphocytes # (Manual) Monocytes # (Manual) ABG pH POC ABG pCO2 POC ABG pO2 ABG Hemoglobin ABG Oxyhemoglobin ABG Sodium ABG Potassium ABG Chloride ABG Glucose Carboxyhemoglobin Sodium Potassium Chloride BUN Creatinine Glucose POC Glucose 259 H 280 H 223 H Calcium Phosphorus Magnesium AST Total Creatine Kinase CK-MB (CK-2) Troponin T Albumin HDL Cholesterol TSH Free T3 Index Arterial Blood Glucose Arterial Blood Ionized Calcium Urine pH Urine WBC (Auto) Urine Creatinine Acetaminophen 04/23/21 04/23/21 04/23/21 07:02 11:57 17:33 WBC RBC Hct MCV RDW Plt Count Lymph % (Auto) Seg Neutrophils % Seg Neuts % (Manual) Lymphocytes % (Manual) Monocytes % (Manual) Seg Neutrophils # Seg Neutrophils # Man Lymphocytes # (Manual) Monocytes # (Manual) ABG pH POC ABG pCO2 POC ABG pO2 ABG Hemoglobin ABG Oxyhemoglobin ABG Sodium ABG Potassium ABG Chloride ABG Glucose Carboxyhemoglobin Sodium Potassium Chloride 97.7 L BUN 57 H Creatinine 2.0 H Glucose 253 H POC Glucose 310 H 235 H Calcium Phosphorus Magnesium AST Total Creatine Kinase CK-MB (CK-2) Troponin T Albumin HDL Cholesterol TSH Free T3 Index Arterial Blood Glucose Arterial Blood Ionized Calcium Urine pH Urine WBC (Auto) Urine Creatinine Acetaminophen 04/23/21 04/24/21 04/24/21 23:15 05:23 05:46 WBC RBC Hct MCV RDW Plt Count Lymph % (Auto) Seg Neutrophils % Seg Neuts % (Manual) Lymphocytes % (Manual) Monocytes % (Manual) Seg Neutrophils # Seg Neutrophils # Man Lymphocytes # (Manual) Monocytes # (Manual) ABG pH POC ABG pCO2 POC ABG pO2 ABG Hemoglobin ABG Oxyhemoglobin ABG Sodium ABG Potassium ABG Chloride ABG Glucose Carboxyhemoglobin Sodium Potassium 5.2 H D Chloride BUN 68 H Creatinine 2.3 H Glucose 277 H POC Glucose 197 H 274 H Calcium Phosphorus Magnesium AST Total Creatine Kinase CK-MB (CK-2) Troponin T Albumin HDL Cholesterol TSH Free T3 Index Arterial Blood Glucose Arterial Blood Ionized Calcium Urine pH Urine WBC (Auto) Urine Creatinine Acetaminophen 04/24/21 04/24/21 04/24/21 11:33 11:52 17:49 WBC RBC Hct MCV RDW Plt Count Lymph % (Auto) Seg Neutrophils % Seg Neuts % (Manual) Lymphocytes % (Manual) Monocytes % (Manual) Seg Neutrophils # Seg Neutrophils # Man Lymphocytes # (Manual) Monocytes # (Manual) ABG pH POC ABG pCO2 POC ABG pO2 72.7 L ABG Hemoglobin 11.6 L ABG Oxyhemoglobin 92.9 L ABG Sodium ABG Potassium ABG Chloride ABG Glucose 269 H Carboxyhemoglobin Sodium Potassium Chloride BUN Creatinine Glucose POC Glucose 223 H 252 H Calcium Phosphorus Magnesium AST Total Creatine Kinase CK-MB (CK-2) Troponin T Albumin HDL Cholesterol TSH Free T3 Index Arterial Blood Glucose 269 H Arterial Blood Ionized Calcium Urine pH Urine WBC (Auto) Urine Creatinine Acetaminophen 04/24/21 04/24/21 04/25/21 21:00 23:48 03:06 WBC RBC Hct MCV RDW Plt Count Lymph % (Auto) Seg Neutrophils % Seg Neuts % (Manual) Lymphocytes % (Manual) Monocytes % (Manual) Seg Neutrophils # Seg Neutrophils # Man Lymphocytes # (Manual) Monocytes # (Manual) ABG pH 7.521 H 7.451 H POC ABG pCO2 POC ABG pO2 80.7 L 77.1 L ABG Hemoglobin 10.4 L 11.2 L ABG Oxyhemoglobin ABG Sodium ABG Potassium ABG Chloride ABG Glucose 186 H 165 H Carboxyhemoglobin 0 L Sodium Potassium Chloride BUN Creatinine Glucose POC Glucose 141 H Calcium Phosphorus Magnesium AST Total Creatine Kinase CK-MB (CK-2) Troponin T Albumin HDL Cholesterol TSH Free T3 Index Arterial Blood Glucose 186 H 165 H Arterial Blood Ionized Calcium Urine pH Urine WBC (Auto) Urine Creatinine Acetaminophen 04/25/21 04/25/21 04/25/21 03:56 03:56 06:03 WBC 12.3 H RBC 3.40 L Hct MCV RDW Plt Count Lymph % (Auto) Seg Neutrophils % Seg Neuts % (Manual) Lymphocytes % (Manual) Monocytes % (Manual) Seg Neutrophils # Seg Neutrophils # Man Lymphocytes # (Manual) Monocytes # (Manual) ABG pH POC ABG pCO2 POC ABG pO2 ABG Hemoglobin ABG Oxyhemoglobin ABG Sodium ABG Potassium ABG Chloride ABG Glucose Carboxyhemoglobin Sodium Potassium Chloride BUN 78 H Creatinine 2.5 H Glucose 152 H POC Glucose 171 H Calcium Phosphorus Magnesium AST Total Creatine Kinase CK-MB (CK-2) Troponin T Albumin HDL Cholesterol TSH Free T3 Index Arterial Blood Glucose Arterial Blood Ionized Calcium Urine pH Urine WBC (Auto) Urine Creatinine Acetaminophen
[2021-04-25] MEDS: TIMOLOL 0.5% OPHTH SOLN 5 ML OU SCH (10:07)
[2021-04-25] MEDS: FAMOTIDINE 20 MG TAB PO SCH (10:08)
[2021-04-25] MEDS: HEPARIN 5,000 UNIT/1 ML VIAL SUB-Q SCH ×2 (10:08→22:22)
[2021-04-25] MEDS: INSULIN GLARGINE 100 UNITS/ML SUB-Q SCH (10:08)
[2021-04-25] MEDS: CLOPIDOGREL 75 MG TAB PO SCH (10:08)
[2021-04-25] MEDS: amLODIPine 10 MG TAB PO SCH (10:08)
[2021-04-25] MEDS: MODAFINIL 100 MG TAB PO SCH (10:08)
[2021-04-25] MEDS: METOPROLOL TARTRATE 25 MG TAB PO SCH ×2 (10:08→22:21)
[2021-04-25] MEDS: BRIMONIDINE 0.15% OPHTH SOLN OU SCH ×2 (10:08→22:23)
[2021-04-25] MEDS: ASPIRIN 81 MG TAB CHEW PO SCH (10:09)
[2021-04-25] MEDS: hydrALAZINE 100 MG TAB PO SCH ×3 (10:09→22:22)
--- NOTE | 2021-04-25 10:24 | Progress Note ---
Assessment and Plan 1. Acute kidney injury: Likely vasomotor ROJELIO. ATN likely. Renal US negative for hydro. Baseline renal function is unknown. Monitor renal function. Non-oliguric. Now has hui catheter. Creatinine level gradually increasing. Avoid nephrotoxic agents. Meds dosage based on GFR. 2. FEN: Hyperkalemia, improved, monitor. Hyponatremia, improved. Monitor lytes and volume status. 3. Acute hypoxemic respiratory failure: S/p extubated, re-intubated 04/24. 4. Acute encephalopathy: Hypoglycemia. MRI brain negative. Followed by Neuro. 5. Pseudomonas UTI. 6. Hypertension. 7. DM type 2. 8. Mild rhabdomyolysis. 9. Mildly complex R renal cyst. Subjective: Patient was seen and examined at the bedside. Examination: General appearance: well-developed, appears stated age, intubated on vent HEENT: BRUCE, atraumatic Neck: trachea midline Respiratory: Coarse breath sounds heard Heart: S1S2, no murmur Abdomen: soft, obese, bowel sounds heard, NT Integumentary: no obvious rash Neurologic: lethargic, non-verbal, not following any command Ext: no edema noted : Hui catheter Subjective Date of service: 04/25/21 Principal diagnosis: AMS Objective - Vital Signs Vital signs: Vital Signs - 12hr 04/24/21 04/24/21 04/24/21 22:31 23:01 23:05 Temperature Pulse Rate 61 62 59 L Pulse Rate [ Bilateral] Pulse Rate [ From Monitor] Respiratory 12 12 12 Rate Respiratory Rate [Bilateral ] Blood Pressure 115/49 114/58 114/58 O2 Sat by Pulse 98 98 99 Oximetry 04/24/21 04/25/21 04/25/21 23:31 00:00 00:01 Temperature Pulse Rate 60 62 Pulse Rate [ Bilateral] Pulse Rate [ 66 From Monitor] Respiratory 12 14 12 Rate Respiratory Rate [Bilateral ] Blood Pressure 109/47 118/46 O2 Sat by Pulse 98 98 96 Oximetry 04/25/21 04/25/21 04/25/21 00:02 00:31 01:00 Temperature Pulse Rate 58 L 60 64 Pulse Rate [ Bilateral] Pulse Rate [ From Monitor] Respiratory 12 12 Rate Respiratory Rate [Bilateral ] Blood Pressure 118/46 127/50 131/56 O2 Sat by Pulse 97 99 99 Oximetry 04/25/21 04/25/21 04/25/21 01:31 02:00 02:01 Temperature Pulse Rate 61 65 Pulse Rate [ 69 Bilateral] Pulse Rate [ From Monitor] Respiratory 12 12 Rate Respiratory 12 Rate [Bilateral ] Blood Pressure 131/57 134/65 O2 Sat by Pulse 98 97 Oximetry 04/25/21 04/25/21 04/25/21 02:31 03:00 03:31 Temperature Pulse Rate 61 68 67 Pulse Rate [ Bilateral] Pulse Rate [ From Monitor] Respiratory 12 12 12 Rate Respiratory Rate [Bilateral ] Blood Pressure 129/78 136/77 136/77 O2 Sat by Pulse 96 97 98 Oximetry 04/25/21 04/25/21 04/25/21 03:48 04:00 04:01 Temperature Pulse Rate 70 65 Pulse Rate [ Bilateral] Pulse Rate [ 66 From Monitor] Respiratory 14 12 Rate Respiratory Rate [Bilateral ] Blood Pressure 141/81 118/64 O2 Sat by Pulse 98 98 99 Oximetry 04/25/21 04/25/21 04/25/21 04:31 05:00 05:31 Temperature Pulse Rate 67 66 76 Pulse Rate [ Bilateral] Pulse Rate [ From Monitor] Respiratory 12 13 12 Rate Respiratory Rate [Bilateral ] Blood Pressure 123/74 144/58 152/58 O2 Sat by Pulse 99 100 97 Oximetry 04/25/21 04/25/21 04/25/21 06:00 06:01 06:31 Temperature Pulse Rate 67 68 Pulse Rate [ Bilateral] Pulse Rate [ 66 From Monitor] Respiratory 14 12 12 Rate Respiratory Rate [Bilateral ] Blood Pressure 152/55 141/66 O2 Sat by Pulse 98 98 99 Oximetry 04/25/21 04/25/21 04/25/21 07:01 07:25 07:31 Temperature 98.0 F Pulse Rate 71 73 Pulse Rate [ Bilateral] Pulse Rate [ From Monitor] Respiratory 12 12 Rate Respiratory Rate [Bilateral ] Blood Pressure 127/54 175/85 O2 Sat by Pulse 99 98 Oximetry 04/25/21 04/25/21 04/25/21 08:00 08:01 08:25 Temperature Pulse Rate 74 74 79 Pulse Rate [ Bilateral] Pulse Rate [ 66 From Monitor] Respiratory 12 Rate Respiratory Rate [Bilateral ] Blood Pressure 180/65 171/16 O2 Sat by Pulse 97 96 Oximetry 04/25/21 04/25/21 04/25/21 08:31 09:01 09:30 Temperature Pulse Rate 78 86 100 H Pulse Rate [ Bilateral] Pulse Rate [ From Monitor] Respiratory 14 15 19 Rate Respiratory Rate [Bilateral ] Blood Pressure 171/106 169/74 167/107 O2 Sat by Pulse 94 97 94 Oximetry 04/25/21 04/25/21 10:01 10:08 Temperature Pulse Rate 97 H 92 H Pulse Rate [ Bilateral] Pulse Rate [ From Monitor] Respiratory 17 Rate Respiratory Rate [Bilateral ] Blood Pressure 164/84 164/84 O2 Sat by Pulse 96 Oximetry - Lab 04/25/21 03:56 04/25/21 03:56 Most recent lab results ABG pH 7.451 (7.320-7.450) H 04/25/21 03:06 ABG O2 Saturation 95.1 (0-100) 04/25/21 03:06 Calcium 9.4 mg/dL (8.4-10.2) 04/25/21 03:56 Phosphorus 2.60 mg/dL (2.5-4.5) 04/22/21 08:00 Magnesium 2.10 mg/dL (1.7-2.3) 04/23/21 07:02 Urine Creatinine 24.4 mg/dL (0.1-20.0) H 04/16/21 00:12 Urine Sodium 97 mmol/L 04/16/21 00:12 Medications & Allergies - Medications Allergies/Adverse Reactions: Allergies No Known Allergies Allergy (Unverified 04/15/21 17:41) Home Medications: Home Medications Medication Instructions Recorded Confirmed Last Taken Type Betaxolol HCl [Betoptic S 0.25% 1 drop OU BID 04/16/21 04/16/21 Unknown History SUSP] Bimatoprost [Lumigan 0.01%] 1 drop OU QPM 04/16/21 04/16/21 Unknown History Brimonidine Tartrate [Brimonidine 5 ml OU BID 04/16/21 04/16/21 Unknown History Tartrate 0.2%] Furosemide [Lasix TAB] 40 mg PO QDAY 04/16/21 04/16/21 Unknown History Gabapentin [Neurontin] 300 mg PO Q8HR 04/16/21 04/16/21 Unknown History HYDROcodone/APAP 10-325 [[place] 1 each PO Q6HR PRN 04/16/21 04/16/21 Unknown Hist ory 10/325] Hydralazine HCl 50 mg PO Q4HR 04/16/21 04/16/21 Unknown History Insulin Aspart Prot/Insuln Asp 52 units SQ HS 04/16/21 04/16/21 Unknown History [Novolog Mix 70-30 Flexpen] Metoprolol [Lopressor] 25 mg PO BID 04/16/21 04/16/21 Unknown History Pravastatin [Pravachol] 20 mg PO QHS 04/16/21 04/16/21 Unknown History Promethazine [Phenergan] 25 mg PO Q6HR 04/16/21 04/16/21 Unknown History allopurinoL [Zyloprim] 150 mg PO QDAY 04/16/21 04/16/21 Unknown History Active Medications: Generic Name Dose Route Start Last Admin Trade Name Freq PRN Reason Stop Dose Admin Acetaminophen 650 mg 04/15/21 19:11 04/19/21 23:33 Acetaminophen 325 Mg Tab PO 650 mg Q6H PRN Administration Pain MILD(1-3)/Fever >100.5/SEXTON Albuterol/Ipratropium 1 ampul 04/24/21 14:00 04/25/21 08:39 Ipratropium/Albuterol Sulfate 3 Ml Ampul.Neb IH 1 ampul Q6HRT WOLFGANG Administration Amlodipine Besylate 10 mg 04/25/21 10:00 04/25/21 10:08 Amlodipine 10 Mg Tab PO 10 mg DAILY WOLFGANG Administration Lipase/Protease/Amylase 1 each 04/16/21 12:52 Lipase 10,500/Protease 25,000/Amylase 43,750 (Units) Dr Simpson FEEDTUBE PRN PRN For Clogged Feeding Tube Aspirin 81 mg 04/25/21 10:00 04/25/21 10:09 Aspirin 81 Mg Tab Chew PO 81 mg QDAY WOLFGANG Administration Bisacodyl 10 mg 04/17/21 11:01 04/17/21 13:46 Bisacodyl 10 Mg Rect Supp UT 10 mg QDAY PRN Administration Constipation Brimonidine Tartrate 1 drops 04/17/21 22:00 04/25/21 10:08 Brimonidine 0.15% Ophth Soln OU 1 drops BID WOLFGANG Administration Clopidogrel Bisulfate 75 mg 04/25/21 10:00 04/25/21 10:08 Clopidogrel 75 Mg Tab PO 75 mg QDAY WOLFGANG Administration Epinephrine 0.5 ml 04/21/21 12:56 Epinephrine Racemic 2.25% 0.5ml Nebu IH Q4HRT PRN Shortness Of Breath Famotidine 20 mg 04/17/21 10:00 04/25/21 10:08 Famotidine 20 Mg Tab PO 20 mg DAILY WOLFGANG Administration Fentanyl 50 mcg 04/24/21 13:03 Fentanyl 100 Mcg/2 Ml Inj IV Q10MIN PRN ANALGESIA Heparin Sodium (Porcine) 5,000 unit 04/15/21 22:00 04/25/21 10:08 Heparin 5,000 Unit/1 Ml Vial SUB-Q 5,000 unit Q12HR WOLFGANG Administration Hydralazine HCl 10 mg 04/16/21 18:00 04/24/21 05:25 Hydralazine 20 Mg/1 Ml Inj IV 10 mg Q4HR PRN Administration Hypertension Hydralazine HCl 100 mg 04/21/21 14:00 04/25/21 10:09 Hydralazine 100 Mg Tab PO 100 mg TID WOLFGANG Administration Hydrophilic Ointment 1 applic 04/15/21 17:24 Lip Therapy Vaseline TP Q2HR PRN Dry Lips Fentanyl Citrate 2,000 mcg in 100 mls @ 4.765 mls/hr 04/24/21 14:00 04/25/21 04:49 Fentanyl Drip Premix IV 1 mcg/kg/hr TITR WOLFGANG 4.765 mls/hr Administration Protocol 1 MCG/KG/HR Propofol 1,000 mg in 100 mls @ 2.859 mls/hr 04/24/21 14:00 04/25/21 04:00 Diprivan 10 Mg/Ml IV 5 mcg/kg/min TITR WOLFGANG 2.859 mls/hr Titration Protocol 5 MCG/KG/MIN Insulin Glargine 30 units 04/25/21 08:00 04/25/21 10:08 Insulin Glargine 100 Units/Ml SUB-Q 30 units QAMDIAB WOLFGANG Administration Insulin Human Lispro 0 unit 04/16/21 15:00 04/25/21 06:17 Insulin Lispro 100 Unit/Ml SUB-Q 3 unit Q6HR WOLFGANG Administration Protocol Latanoprost 1 drops 04/17/21 18:00 04/24/21 18:11 Latanoprost 0.005% Ophth Soln 2.5 Ml OU 1 drops QPM WOLFGANG Administration Levothyroxine Sodium 25 mcg 04/19/21 06:00 04/25/21 06:24 Levothyroxine 25 Mcg Tab PO 25 mcg DAILY@0600 WOLFGANG Administration Lorazepam 1 mg 04/24/21 11:32 Lorazepam 2 Mg/Ml Vial IV Q12HR PRN Agitation Metoprolol Tartrate 25 mg 04/19/21 10:00 04/25/21 10:08 Metoprolol Tartrate 25 Mg Tab PO 25 mg BID WOLFGANG Administration Modafinil 100 mg 04/19/21 10:00 04/25/21 10:08 Modafinil 100 Mg Tab PO 100 mg QAM WOLFGANG Administration Multi-Ingred Cream/Lotion/Oil/Oint 1 applic 04/15/21 17:24 04/16/21 11:19 Mineral Oil/Petrolatum, White Ophth Oint 3.5 Gm OU 1 applic Q4HR PRN Administration Dry Eye(s) Pravastatin Sodium 20 mg 04/19/21 22:00 04/24/21 21:21 Pravastatin 20 Mg Tab PO 20 mg QHS WOLFGANG Administration Scopolamine 1 each 04/20/21 18:00 04/23/21 10:04 Scopolamine Transdermal Patch 72 Hr TD 1 each Q3D WOLFGANG Administration Simple Syrup 15 ml 04/16/21 12:52 Simple Syrup 15 Ml FEEDTUBE PRN PRN Hypoglycemia Simple Syrup 30 ml 04/16/21 12:52 Simple Syrup 15 Ml FEEDTUBE PRN PRN Hypoglycemia Sodium Bicarbonate 325 mg 04/16/21 12:52 Sodium Bicarbonate 325 Mg Tab FEEDTUBE PRN PRN For Clogged Feeding Tube Sodium Chloride 10 ml 04/15/21 22:00 04/25/21 10:09 Sodium Chloride 0.9% 10 Ml Flush Syringe IV 10 ml BID WOLFGANG Administration Sodium Chloride 10 ml 04/15/21 19:11 04/24/21 05:27 Sodium Chloride 0.9% 10 Ml Flush Syringe IV 10 ml PRN PRN Administration LINE FLUSH Timolol Maleate 1 drops 04/19/21 10:00 04/25/21 10:07 Timolol 0.5% Ophth Soln 5 Ml OU 1 drops QDAY WOLFGANG Administration
--- NOTE | 2021-04-25 14:02 | Progress Note ---
Assessment and Plan Acute respiratory failure, on mechanical ventilatory support. 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 - begin Flomax re: retention - reduce set rate to 10/min - discontinue Provigil - increase metoprolol frequency from bid to tid - continue care as below otherwise; - continue to wean supplemental oxygen for target O2 sat's > 90% acutely - VAP bundle addressed - continue lung protective strategies - continue bronchodilators with pulmonary hygiene per RT - continue Daily SAT and SBT assessment as tolerated - wean per pulmonary driven protocols otherwise - continue accuchecks with glycemic control per SSI (While critically ill target blood glucose of 140-180 mg/dL; avoid hypoglycemia) - sedation prn for target RASS 0 to -1 - avoid nephrotoxins, renally dose all medications - continue to avoid benzodiazepine's, reduce the possibility of delirium - follow clinically off AB's; trend fevers / WBC - prn analgesia per CPOT score - Maintenance of sleep-wake cycle, avoid delirium - continue enteral nutritional support at goal rate as tolerated - G.I. & VTE prophylaxis - PT/OT/ROM exercises - continue mobility protocols for pressure ulcer prophylaxis - Monitor hemodynamics closely - continue other care per attending / other consultants - discharge planning ongoing concurrently .... Re-evaluate in am & prn CONDITION: CRITICAL PROGNOSIS: GUARDED CODE STATUS: FULL CODE The high probability of a clinically significant, sudden or life-threatening deterioration of the [respiratory, cardiovascular, GI & neurologic] system(s) required my full and direct attention, intervention and personal management. The aggregate critical care time was [32] minutes without overlap. Time includes spent on; [x] Data Review and interpretation [x] Patient assessment and monitoring of vital signs [x] Documentation [x] Medication orders and management Subjective Date of service: 04/25/21 Principal diagnosis: AMS Interval history: Patient is seen today for: Acute respiratory failure; AMS; Hypoglycemia; ROJELIO; Hyperkalemia; DM II; H/O breast cancer; Elevated serum TSH, possible hypothyroidism Seen and examined at bedside; 24hour events reviewed; nursing and respiratory care staff consulted; no adverse overnight events reported to me; resting peacefully in bed; re-intubated yesterday; EEG ongoing; no emesis or overt aspiration; hui placed overnight for retention and BP's running high Objective Vital Signs - 12hr 04/25/21 04/25/21 04/25/21 02:00 02:01 02:31 Temperature Pulse Rate 65 61 Pulse Rate [ 69 Bilateral] Pulse Rate [ From Monitor] Respiratory 12 12 Rate Respiratory 12 Rate [Bilateral ] Blood Pressure 134/65 129/78 O2 Sat by Pulse 97 96 Oximetry 04/25/21 04/25/21 04/25/21 03:00 03:31 03:48 Temperature Pulse Rate 68 67 70 Pulse Rate [ Bilateral] Pulse Rate [ From Monitor] Respiratory 12 12 Rate Respiratory Rate [Bilateral ] Blood Pressure 136/77 136/77 141/81 O2 Sat by Pulse 97 98 98 Oximetry 04/25/21 04/25/21 04/25/21 04:00 04:01 04:31 Temperature Pulse Rate 65 67 Pulse Rate [ Bilateral] Pulse Rate [ 66 From Monitor] Respiratory 14 12 12 Rate Respiratory Rate [Bilateral ] Blood Pressure 118/64 123/74 O2 Sat by Pulse 98 99 99 Oximetry 04/25/21 04/25/21 04/25/21 05:00 05:31 06:00 Temperature Pulse Rate 66 76 Pulse Rate [ Bilateral] Pulse Rate [ 66 From Monitor] Respiratory 13 12 14 Rate Respiratory Rate [Bilateral ] Blood Pressure 144/58 152/58 O2 Sat by Pulse 100 97 98 Oximetry 04/25/21 04/25/21 04/25/21 06:01 06:31 07:01 Temperature Pulse Rate 67 68 71 Pulse Rate [ Bilateral] Pulse Rate [ From Monitor] Respiratory 12 12 12 Rate Respiratory Rate [Bilateral ] Blood Pressure 152/55 141/66 127/54 O2 Sat by Pulse 98 99 99 Oximetry 04/25/21 04/25/21 04/25/21 07:25 07:31 08:00 Temperature 98.0 F Pulse Rate 73 74 Pulse Rate [ Bilateral] Pulse Rate [ 66 From Monitor] Respiratory 12 Rate Respiratory Rate [Bilateral ] Blood Pressure 175/85 O2 Sat by Pulse 98 Oximetry 04/25/21 04/25/21 04/25/21 08:01 08:25 08:31 Temperature Pulse Rate 74 79 78 Pulse Rate [ Bilateral] Pulse Rate [ From Monitor] Respiratory 12 14 Rate Respiratory Rate [Bilateral ] Blood Pressure 180/65 171/16 171/106 O2 Sat by Pulse 97 96 94 Oximetry 04/25/21 04/25/21 04/25/21 09:01 09:30 10:01 Temperature Pulse Rate 86 100 H 97 H Pulse Rate [ Bilateral] Pulse Rate [ From Monitor] Respiratory 15 19 17 Rate Respiratory Rate [Bilateral ] Blood Pressure 169/74 167/107 164/84 O2 Sat by Pulse 97 94 96 Oximetry 04/25/21 04/25/21 04/25/21 10:08 10:31 11:01 Temperature Pulse Rate 92 H 88 72 Pulse Rate [ Bilateral] Pulse Rate [ From Monitor] Respiratory 13 14 Rate Respiratory Rate [Bilateral ] Blood Pressure 164/84 156/73 151/52 O2 Sat by Pulse 95 98 Oximetry 04/25/21 04/25/21 04/25/21 11:31 12:00 12:01 Temperature 98.7 F Pulse Rate 79 75 Pulse Rate [ Bilateral] Pulse Rate [ From Monitor] Respiratory 17 17 Rate Respiratory Rate [Bilateral ] Blood Pressure 178/59 170/74 O2 Sat by Pulse 95 93 Oximetry 04/25/21 04/25/21 04/25/21 12:31 13:01 13:31 Temperature Pulse Rate 86 88 87 Pulse Rate [ Bilateral] Pulse Rate [ From Monitor] Respiratory 19 17 20 Rate Respiratory Rate [Bilateral ] Blood Pressure 158/65 157/87 157/73 O2 Sat by Pulse 92 91 89 Oximetry Constitutional: no acute distress, other (elderly obese female without increased respiratory effort at rest) Eyes: non-icteric (Patient obese and having mild respiratory distress at rest) ENT: oropharynx moist, other (mild stridorous sounds) Neck: supple, no lymphadenopathy, no JVD, other (large circumference) Effort: mildly labored Ascultation: Bilateral: diminished breath sounds, rhonchi Percussion: Bilateral: not dull Cardiovascular: regular rate and rhythm Gastrointestinal: normoactive bowel sounds, soft, non-tender, non-distended (protuberant) Integumentary: normal Extremities: no cyanosis, no edema, pulses normal, no ischemia or petechiae Neurologic: non-focal exam (grossly with intermittent spontaneous movement to extremities but ? mild posturing (decerebrate)), pupils equal and round, CN II- XII normal Psychiatric: mood appropriate, affect normal CBC and BMP: 04/25/21 03:56 04/25/21 03:56 ABG, PT/INR, D-dimer: ABG ABG pH 7.451 (7.320-7.450) H 04/25/21 03:06 POC ABG pCO2 45.2 mmHg (32.0-48.0) 04/25/21 03:06 POC ABG pO2 77.1 mmHg (83-108) L 04/25/21 03:06 POC ABG HCO3 30.8 04/25/21 03:06 ABG O2 Saturation 95.1 (0-100) 04/25/21 03:06 PT/INR, D-dimer PT 12.2 Sec. (12.2-14.9) 04/15/21 17:20 INR 0.91 (0.87-1.13) 04/15/21 17:20 Abnormal lab findings: Abnormal Labs 04/15/21 04/15/21 04/15/21 17:00 17:20 17:20 WBC 11.2 H RBC Hct 43.0 H MCV RDW 15.3 H Plt Count Lymph % (Auto) 12.8 L Seg Neutrophils % 82.4 H Seg Neuts % (Manual) Lymphocytes % (Manual) Monocytes % (Manual) Seg Neutrophils # 9.3 H Seg Neutrophils # Man Lymphocytes # (Manual) Monocytes # (Manual) ABG pH POC ABG pCO2 POC ABG pO2 ABG Hemoglobin ABG Oxyhemoglobin ABG Sodium ABG Potassium ABG Chloride ABG Glucose Carboxyhemoglobin Sodium 129 L Potassium 7.1 H* Chloride 91.9 L BUN 35 H Creatinine 2.8 H Glucose POC Glucose 191 H Calcium Phosphorus Magnesium AST 69 H Total Creatine Kinase CK-MB (CK-2) Troponin T Albumin HDL Cholesterol TSH Free T3 Index Arterial Blood Glucose Arterial Blood Ionized Calcium Urine pH Urine WBC (Auto) Urine Creatinine Acetaminophen 04/15/21 04/15/21 04/15/21 17:20 17:20 17:20 WBC RBC Hct MCV RDW Plt Count Lymph % (Auto) Seg Neutrophils % Seg Neuts % (Manual) Lymphocytes % (Manual) Monocytes % (Manual) Seg Neutrophils # Seg Neutrophils # Man Lymphocytes # (Manual) Monocytes # (Manual) ABG pH POC ABG pCO2 POC ABG pO2 ABG Hemoglobin ABG Oxyhemoglobin ABG Sodium ABG Potassium ABG Chloride ABG Glucose Carboxyhemoglobin Sodium Potassium Chloride BUN Creatinine Glucose POC Glucose Calcium Phosphorus Magnesium AST Total Creatine Kinase 1000 H CK-MB (CK-2) Troponin T Albumin HDL Cholesterol TSH 14.190 H Free T3 Index Arterial Blood Glucose Arterial Blood Ionized Calcium Urine pH Urine WBC (Auto) Urine Creatinine Acetaminophen 5.0 L 04/15/21 04/15/21 04/15/21 20:49 21:23 23:15 WBC RBC Hct MCV RDW Plt Count Lymph % (Auto) Seg Neutrophils % Seg Neuts % (Manual) Lymphocytes % (Manual) Monocytes % (Manual) Seg Neutrophils # Seg Neutrophils # Man Lymphocytes # (Manual) Monocytes # (Manual) ABG pH 7.557 H POC ABG pCO2 30.0 L POC ABG pO2 493.3 H ABG Hemoglobin ABG Oxyhemoglobin 99.0 H ABG Sodium 131.5 L ABG Potassium 4.7 H ABG Chloride 94.0 L ABG Glucose 218 H Carboxyhemoglobin Sodium Potassium Chloride BUN Creatinine Glucose POC Glucose 173 H 207 H Calcium Phosphorus Magnesium AST Total Creatine Kinase CK-MB (CK-2) Troponin T Albumin HDL Cholesterol TSH Free T3 Index Arterial Blood Glucose 218 H Arterial Blood Ionized Calcium 5.4 H Urine pH Urine WBC (Auto) Urine Creatinine Acetaminophen 04/16/21 04/16/21 04/16/21 00:09 00:12 00:19 WBC RBC Hct MCV RDW Plt Count Lymph % (Auto) Seg Neutrophils % Seg Neuts % (Manual) Lymphocytes % (Manual) Monocytes % (Manual) Seg Neutrophils # Seg Neutrophils # Man Lymphocytes # (Manual) Monocytes # (Manual) ABG pH POC ABG pCO2 POC ABG pO2 ABG Hemoglobin ABG Oxyhemoglobin ABG Sodium ABG Potassium ABG Chloride ABG Glucose Carboxyhemoglobin Sodium Potassium 6.7 H* Chloride BUN Creatinine Glucose POC Glucose Calcium Phosphorus Magnesium AST Total Creatine Kinase CK-MB (CK-2) Troponin T Albumin HDL Cholesterol TSH Free T3 Index Arterial Blood Glucose Arterial Blood Ionized Calcium Urine pH 9.0 H Urine WBC (Auto) Urine Creatinine 24.4 H Acetaminophen 04/16/21 04/16/21 04/16/21 03:43 03:55 05:02 WBC 21.2 H RBC Hct 43.4 H MCV 98 H RDW Plt Count Lymph % (Auto) Seg Neutrophils % Seg Neuts % (Manual) 84.0 H Lymphocytes % (Manual) 2.0 L Monocytes % (Manual) 10.0 H Seg Neutrophils # Seg Neutrophils # Man 17.8 H Lymphocytes # (Manual) 0.4 L Monocytes # (Manual) 2.1 H ABG pH 7.461 H POC ABG pCO2 POC ABG pO2 ABG Hemoglobin ABG Oxyhemoglobin ABG Sodium 126.8 L ABG Potassium 5.4 H ABG Chloride 90.0 L ABG Glucose 325 H Carboxyhemoglobin Sodium Potassium Chloride BUN Creatinine Glucose POC Glucose 391 H Calcium Phosphorus Magnesium AST Total Creatine Kinase CK-MB (CK-2) Troponin T Albumin HDL Cholesterol TSH Free T3 Index Arterial Blood Glucose 325 H Arterial Blood Ionized Calcium Urine pH Urine WBC (Auto) Urine Creatinine Acetaminophen 04/16/21 04/16/21 04/16/21 05:02 11:34 16:09 WBC RBC Hct MCV RDW Plt Count Lymph % (Auto) Seg Neutrophils % Seg Neuts % (Manual) Lymphocytes % (Manual) Monocytes % (Manual) Seg Neutrophils # Seg Neutrophils # Man Lymphocytes # (Manual) Monocytes # (Manual) ABG pH POC ABG pCO2 POC ABG pO2 ABG Hemoglobin ABG Oxyhemoglobin ABG Sodium ABG Potassium ABG Chloride ABG Glucose Carboxyhemoglobin Sodium 131 L Potassium 5.9 H Chloride 88.7 L BUN 34 H Creatinine 2.9 H Glucose 249 H POC Glucose 382 H 300 H Calcium 10.4 H Phosphorus Magnesium AST 65 H Total Creatine Kinase CK-MB (CK-2) Troponin T Albumin 3.8 L HDL Cholesterol TSH Free T3 Index Arterial Blood Glucose Arterial Blood Ionized Calcium Urine pH Urine WBC (Auto) Urine Creatinine Acetaminophen 04/16/21 04/16/21 04/16/21 18:15 19:01 19:01 WBC RBC Hct MCV RDW Plt Count Lymph % (Auto) Seg Neutrophils % Seg Neuts % (Manual) Lymphocytes % (Manual) Monocytes % (Manual) Seg Neutrophils # Seg Neutrophils # Man Lymphocytes # (Manual) Monocytes # (Manual) ABG pH POC ABG pCO2 POC ABG pO2 ABG Hemoglobin ABG Oxyhemoglobin ABG Sodium ABG Potassium ABG Chloride ABG Glucose Carboxyhemoglobin Sodium 125 L Potassium 5.5 H Chloride 84.5 L BUN 37 H Creatinine 3.5 H Glucose 236 H POC Glucose 287 H Calcium Phosphorus Magnesium AST Total Creatine Kinase CK-MB (CK-2) Troponin T Albumin HDL Cholesterol TSH Free T3 Index 1.1 L Arterial Blood Glucose Arterial Blood Ionized Calcium Urine pH Urine WBC (Auto) Urine Creatinine Acetaminophen 04/16/21 04/16/21 04/17/21 19:01 23:48 03:09 WBC RBC Hct MCV RDW Plt Count Lymph % (Auto) Seg Neutrophils % Seg Neuts % (Manual) Lymphocytes % (Manual) Monocytes % (Manual) Seg Neutrophils # Seg Neutrophils # Man Lymphocytes # (Manual) Monocytes # (Manual) ABG pH 7.518 H POC ABG pCO2 POC ABG pO2 ABG Hemoglobin ABG Oxyhemoglobin ABG Sodium 126.4 L ABG Potassium ABG Chloride 89.0 L ABG Glucose 200 H Carboxyhemoglobin Sodium Potassium 5.6 H Chloride BUN Creatinine Glucose POC Glucose 243 H Calcium Phosphorus Magnesium AST Total Creatine Kinase CK-MB (CK-2) Troponin T Albumin HDL Cholesterol TSH Free T3 Index Arterial Blood Glucose 200 H Arterial Blood Ionized Calcium 4.4 L Urine pH Urine WBC (Auto) Urine Creatinine Acetaminophen 04/17/21 04/17/21 04/17/21 05:04 06:14 11:55 WBC RBC Hct MCV RDW Plt Count Lymph % (Auto) Seg Neutrophils % Seg Neuts % (Manual) Lymphocytes % (Manual) Monocytes % (Manual) Seg Neutrophils # Seg Neutrophils # Man Lymphocytes # (Manual) Monocytes # (Manual) ABG pH POC ABG pCO2 POC ABG pO2 ABG Hemoglobin ABG Oxyhemoglobin ABG Sodium ABG Potassium ABG Chloride ABG Glucose Carboxyhemoglobin Sodium 129 L Potassium Chloride 86.1 L BUN 39 H Creatinine 3.5 H Glucose 202 H POC Glucose 208 H 276 H Calcium Phosphorus Magnesium AST Total Creatine Kinase 750 H CK-MB (CK-2) Troponin T 0.119 H* D Albumin HDL Cholesterol 61 H TSH Free T3 Index Arterial Blood Glucose Arterial Blood Ionized Calcium Urine pH Urine WBC (Auto) Urine Creatinine Acetaminophen 04/17/21 04/17/21 04/17/21 15:35 15:35 17:07 WBC 17.1 H RBC Hct MCV RDW Plt Count Lymph % (Auto) Seg Neutrophils % Seg Neuts % (Manual) Lymphocytes % (Manual) Monocytes % (Manual) Seg Neutrophils # Seg Neutrophils # Man Lymphocytes # (Manual) Monocytes # (Manual) ABG pH POC ABG pCO2 POC ABG pO2 ABG Hemoglobin ABG Oxyhemoglobin ABG Sodium ABG Potassium ABG Chloride ABG Glucose Carboxyhemoglobin Sodium Potassium Chloride BUN Creatinine Glucose POC Glucose 148 H Calcium Phosphorus Magnesium AST Total Creatine Kinase 615 H CK-MB (CK-2) 9.1 H Troponin T Albumin HDL Cholesterol TSH Free T3 Index Arterial Blood Glucose Arterial Blood Ionized Calcium Urine pH Urine WBC (Auto) Urine Creatinine Acetaminophen 04/18/21 04/18/21 04/18/21 00:01 03:00 05:24 WBC RBC Hct MCV RDW Plt Count Lymph % (Auto) Seg Neutrophils % Seg Neuts % (Manual) Lymphocytes % (Manual) Monocytes % (Manual) Seg Neutrophils # Seg Neutrophils # Man Lymphocytes # (Manual) Monocytes # (Manual) ABG pH 7.497 H POC ABG pCO2 POC ABG pO2 77.7 L ABG Hemoglobin 10.4 L ABG Oxyhemoglobin ABG Sodium 129.7 L ABG Potassium 2.8 L ABG Chloride 92.0 L ABG Glucose 134 H Carboxyhemoglobin 0.3 L Sodium Potassium Chloride BUN Creatinine Glucose POC Glucose 192 H 162 H Calcium Phosphorus Magnesium AST Total Creatine Kinase CK-MB (CK-2) Troponin T Albumin HDL Cholesterol TSH Free T3 Index Arterial Blood Glucose 134 H Arterial Blood Ionized Calcium 4.3 L Urine pH Urine WBC (Auto) Urine Creatinine Acetaminophen 04/18/21 04/18/21 04/18/21 05:34 05:34 05:43 WBC 15.3 H RBC 3.34 L Hct MCV RDW 15.3 H Plt Count Lymph % (Auto) Seg Neutrophils % Seg Neuts % (Manual) Lymphocytes % (Manual) Monocytes % (Manual) Seg Neutrophils # Seg Neutrophils # Man Lymphocytes # (Manual) Monocytes # (Manual) ABG pH POC ABG pCO2 POC ABG pO2 ABG Hemoglobin ABG Oxyhemoglobin ABG Sodium ABG Potassium ABG Chloride ABG Glucose Carboxyhemoglobin Sodium 134 L Potassium 3.0 L D Chloride 93.5 L BUN 42 H Creatinine 3.1 H Glucose 152 H POC Glucose Calcium Phosphorus Magnesium 1.40 L AST Total Creatine Kinase 427 H CK-MB (CK-2) Troponin T 0.081 H D Albumin HDL Cholesterol TSH Free T3 Index Arterial Blood Glucose Arterial Blood Ionized Calcium Urine pH Urine WBC (Auto) Urine Creatinine Acetaminophen 04/18/21 04/18/21 04/18/21 09:11 11:34 17:24 WBC RBC Hct MCV RDW Plt Count Lymph % (Auto) Seg Neutrophils % Seg Neuts % (Manual) Lymphocytes % (Manual) Monocytes % (Manual) Seg Neutrophils # Seg Neutrophils # Man Lymphocytes # (Manual) Monocytes # (Manual) ABG pH POC ABG pCO2 POC ABG pO2 ABG Hemoglobin ABG Oxyhemoglobin ABG Sodium ABG Potassium ABG Chloride ABG Glucose Carboxyhemoglobin Sodium Potassium Chloride BUN Creatinine Glucose POC Glucose 170 H 151 H Calcium Phosphorus Magnesium AST Total Creatine Kinase CK-MB (CK-2) Troponin T Albumin HDL Cholesterol TSH Free T3 Index Arterial Blood Glucose Arterial Blood Ionized Calcium Urine pH Urine WBC (Auto) 34.0 H Urine Creatinine Acetaminophen 04/18/21 04/19/21 04/19/21 23:18 04:09 05:19 WBC RBC Hct MCV RDW Plt Count Lymph % (Auto) Seg Neutrophils % Seg Neuts % (Manual) Lymphocytes % (Manual) Monocytes % (Manual) Seg Neutrophils # Seg Neutrophils # Man Lymphocytes # (Manual) Monocytes # (Manual) ABG pH 7.476 H POC ABG pCO2 POC ABG pO2 79.4 L ABG Hemoglobin 10.7 L ABG Oxyhemoglobin ABG Sodium 131.2 L ABG Potassium 2.8 L ABG Chloride 94.0 L ABG Glucose 209 H Carboxyhemoglobin 0.3 L Sodium Potassium Chloride BUN Creatinine Glucose POC Glucose 182 H 204 H Calcium Phosphorus Magnesium AST Total Creatine Kinase CK-MB (CK-2) Troponin T Albumin HDL Cholesterol TSH Free T3 Index Arterial Blood Glucose 209 H Arterial Blood Ionized Calcium Urine pH Urine WBC (Auto) Urine Creatinine Acetaminophen 04/19/21 04/19/21 04/19/21 07:30 07:30 10:35 WBC 14.8 H RBC 3.20 L Hct MCV 98 H RDW Plt Count 137 L Lymph % (Auto) Seg Neutrophils % Seg Neuts % (Manual) Lymphocytes % (Manual) Monocytes % (Manual) Seg Neutrophils # Seg Neutrophils # Man Lymphocytes # (Manual) Monocytes # (Manual) ABG pH 7.464 H POC ABG pCO2 POC ABG pO2 81.8 L ABG Hemoglobin 10.8 L ABG Oxyhemoglobin ABG Sodium 129.6 L ABG Potassium ABG Chloride 95.0 L ABG Glucose 238 H Carboxyhemoglobin Sodium 133 L Potassium 2.8 L* Chloride 94.4 L BUN 43 H Creatinine 2.7 H Glucose 255 H POC Glucose Calcium 8.0 L Phosphorus Magnesium AST Total Creatine Kinase CK-MB (CK-2) Troponin T 0.060 H D Albumin HDL Cholesterol TSH Free T3 Index Arterial Blood Glucose 238 H Arterial Blood Ionized Calcium Urine pH Urine WBC (Auto) Urine Creatinine Acetaminophen 04/19/21 04/19/21 04/19/21 11:48 20:40 23:04 WBC RBC Hct MCV RDW Plt Count Lymph % (Auto) Seg Neutrophils % Seg Neuts % (Manual) Lymphocytes % (Manual) Monocytes % (Manual) Seg Neutrophils # Seg Neutrophils # Man Lymphocytes # (Manual) Monocytes # (Manual) ABG pH POC ABG pCO2 POC ABG pO2 ABG Hemoglobin ABG Oxyhemoglobin ABG Sodium ABG Potassium ABG Chloride ABG Glucose Carboxyhemoglobin Sodium Potassium 3.4 L D Chloride BUN Creatinine Glucose POC Glucose 208 H 173 H Calcium Phosphorus Magnesium AST Total Creatine Kinase CK-MB (CK-2) Troponin T Albumin HDL Cholesterol TSH Free T3 Index Arterial Blood Glucose Arterial Blood Ionized Calcium Urine pH Urine WBC (Auto) Urine Creatinine Acetaminophen 04/20/21 04/20/21 04/20/21 02:56 03:32 03:32 WBC 13.2 H RBC 3.18 L Hct MCV RDW Plt Count Lymph % (Auto) Seg Neutrophils % Seg Neuts % (Manual) Lymphocytes % (Manual) Monocytes % (Manual) Seg Neutrophils # Seg Neutrophils # Man Lymphocytes # (Manual) Monocytes # (Manual) ABG pH 7.526 H POC ABG pCO2 POC ABG pO2 ABG Hemoglobin 10.5 L ABG Oxyhemoglobin ABG Sodium 133.5 L ABG Potassium ABG Chloride ABG Glucose 157 H Carboxyhemoglobin 0.3 L Sodium 135 L Potassium Chloride 96.7 L BUN 40 H Creatinine 2.3 H Glucose 142 H POC Glucose Calcium Phosphorus Magnesium AST Total Creatine Kinase CK-MB (CK-2) Troponin T 0.065 H Albumin HDL Cholesterol TSH Free T3 Index Arterial Blood Glucose 157 H Arterial Blood Ionized Calcium Urine pH Urine WBC (Auto) Urine Creatinine Acetaminophen 04/20/21 04/20/21 04/20/21 03:46 05:42 11:50 WBC RBC Hct MCV RDW Plt Count Lymph % (Auto) Seg Neutrophils % Seg Neuts % (Manual) Lymphocytes % (Manual) Monocytes % (Manual) Seg Neutrophils # Seg Neutrophils # Man Lymphocytes # (Manual) Monocytes # (Manual) ABG pH POC ABG pCO2 POC ABG pO2 ABG Hemoglobin ABG Oxyhemoglobin ABG Sodium ABG Potassium ABG Chloride ABG Glucose Carboxyhemoglobin Sodium Potassium Chloride BUN Creatinine Glucose POC Glucose 160 H 194 H Calcium Phosphorus 2.10 L Magnesium AST Total Creatine Kinase CK-MB (CK-2) Troponin T Albumin HDL Cholesterol TSH Free T3 Index Arterial Blood Glucose Arterial Blood Ionized Calcium Urine pH Urine WBC (Auto) Urine Creatinine Acetaminophen 04/20/21 04/20/21 04/21/21 17:09 23:18 05:26 WBC RBC Hct MCV RDW Plt Count Lymph % (Auto) Seg Neutrophils % Seg Neuts % (Manual) Lymphocytes % (Manual) Monocytes % (Manual) Seg Neutrophils # Seg Neutrophils # Man Lymphocytes # (Manual) Monocytes # (Manual) ABG pH POC ABG pCO2 POC ABG pO2 ABG Hemoglobin ABG Oxyhemoglobin ABG Sodium ABG Potassium ABG Chloride ABG Glucose Carboxyhemoglobin Sodium Potassium Chloride BUN Creatinine Glucose POC Glucose 153 H 162 H 164 H Calcium Phosphorus Magnesium AST Total Creatine Kinase CK-MB (CK-2) Troponin T Albumin HDL Cholesterol TSH Free T3 Index Arterial Blood Glucose Arterial Blood Ionized Calcium Urine pH Urine WBC (Auto) Urine Creatinine Acetaminophen 04/21/21 04/21/21 04/21/21 05:51 05:51 12:12 WBC RBC 3.20 L Hct MCV 99 H RDW 15.3 H Plt Count Lymph % (Auto) Seg Neutrophils % Seg Neuts % (Manual) Lymphocytes % (Manual) Monocytes % (Manual) Seg Neutrophils # Seg Neutrophils # Man Lymphocytes # (Manual) Monocytes # (Manual) ABG pH POC ABG pCO2 POC ABG pO2 ABG Hemoglobin ABG Oxyhemoglobin ABG Sodium ABG Potassium ABG Chloride ABG Glucose Carboxyhemoglobin Sodium Potassium Chloride 96.6 L BUN 42 H Creatinine 2.1 H Glucose 171 H POC Glucose 167 H Calcium Phosphorus Magnesium AST Total Creatine Kinase CK-MB (CK-2) Troponin T Albumin HDL Cholesterol TSH Free T3 Index Arterial Blood Glucose Arterial Blood Ionized Calcium Urine pH Urine WBC (Auto) Urine Creatinine Acetaminophen 04/21/21 04/21/21 04/22/21 17:13 23:42 05:29 WBC RBC Hct MCV RDW Plt Count Lymph % (Auto) Seg Neutrophils % Seg Neuts % (Manual) Lymphocytes % (Manual) Monocytes % (Manual) Seg Neutrophils # Seg Neutrophils # Man Lymphocytes # (Manual) Monocytes # (Manual) ABG pH POC ABG pCO2 POC ABG pO2 ABG Hemoglobin ABG Oxyhemoglobin ABG Sodium ABG Potassium ABG Chloride ABG Glucose Carboxyhemoglobin Sodium Potassium Chloride BUN Creatinine Glucose POC Glucose 178 H 253 H 208 H Calcium Phosphorus Magnesium AST Total Creatine Kinase CK-MB (CK-2) Troponin T Albumin HDL Cholesterol TSH Free T3 Index Arterial Blood Glucose Arterial Blood Ionized Calcium Urine pH Urine WBC (Auto) Urine Creatinine Acetaminophen 04/22/21 04/22/21 04/22/21 08:00 08:00 12:06 WBC 12.9 H RBC Hct MCV RDW Plt Count Lymph % (Auto) Seg Neutrophils % Seg Neuts % (Manual) Lymphocytes % (Manual) Monocytes % (Manual) Seg Neutrophils # Seg Neutrophils # Man Lymphocytes # (Manual) Monocytes # (Manual) ABG pH POC ABG pCO2 POC ABG pO2 ABG Hemoglobin ABG Oxyhemoglobin ABG Sodium ABG Potassium ABG Chloride ABG Glucose Carboxyhemoglobin Sodium Potassium Chloride BUN 47 H Creatinine 1.9 H Glucose 252 H POC Glucose 298 H Calcium Phosphorus Magnesium AST Total Creatine Kinase CK-MB (CK-2) Troponin T Albumin HDL Cholesterol TSH Free T3 Index Arterial Blood Glucose Arterial Blood Ionized Calcium Urine pH Urine WBC (Auto) Urine Creatinine Acetaminophen 04/22/21 04/22/21 04/23/21 17:34 23:01 05:08 WBC RBC Hct MCV RDW Plt Count Lymph % (Auto) Seg Neutrophils % Seg Neuts % (Manual) Lymphocytes % (Manual) Monocytes % (Manual) Seg Neutrophils # Seg Neutrophils # Man Lymphocytes # (Manual) Monocytes # (Manual) ABG pH POC ABG pCO2 POC ABG pO2 ABG Hemoglobin ABG Oxyhemoglobin ABG Sodium ABG Potassium ABG Chloride ABG Glucose Carboxyhemoglobin Sodium Potassium Chloride BUN Creatinine Glucose POC Glucose 259 H 280 H 223 H Calcium Phosphorus Magnesium AST Total Creatine Kinase CK-MB (CK-2) Troponin T Albumin HDL Cholesterol TSH Free T3 Index Arterial Blood Glucose Arterial Blood Ionized Calcium Urine pH Urine WBC (Auto) Urine Creatinine Acetaminophen 04/23/21 04/23/21 04/23/21 07:02 11:57 17:33 WBC RBC Hct MCV RDW Plt Count Lymph % (Auto) Seg Neutrophils % Seg Neuts % (Manual) Lymphocytes % (Manual) Monocytes % (Manual) Seg Neutrophils # Seg Neutrophils # Man Lymphocytes # (Manual) Monocytes # (Manual) ABG pH POC ABG pCO2 POC ABG pO2 ABG Hemoglobin ABG Oxyhemoglobin ABG Sodium ABG Potassium ABG Chloride ABG Glucose Carboxyhemoglobin Sodium Potassium Chloride 97.7 L BUN 57 H Creatinine 2.0 H Glucose 253 H POC Glucose 310 H 235 H Calcium Phosphorus Magnesium AST Total Creatine Kinase CK-MB (CK-2) Troponin T Albumin HDL Cholesterol TSH Free T3 Index Arterial Blood Glucose Arterial Blood Ionized Calcium Urine pH Urine WBC (Auto) Urine Creatinine Acetaminophen 04/23/21 04/24/21 04/24/21 23:15 05:23 05:46 WBC RBC Hct MCV RDW Plt Count Lymph % (Auto) Seg Neutrophils % Seg Neuts % (Manual) Lymphocytes % (Manual) Monocytes % (Manual) Seg Neutrophils # Seg Neutrophils # Man Lymphocytes # (Manual) Monocytes # (Manual) ABG pH POC ABG pCO2 POC ABG pO2 ABG Hemoglobin ABG Oxyhemoglobin ABG Sodium ABG Potassium ABG Chloride ABG Glucose Carboxyhemoglobin Sodium Potassium 5.2 H D Chloride BUN 68 H Creatinine 2.3 H Glucose 277 H POC Glucose 197 H 274 H Calcium Phosphorus Magnesium AST Total Creatine Kinase CK-MB (CK-2) Troponin T Albumin HDL Cholesterol TSH Free T3 Index Arterial Blood Glucose Arterial Blood Ionized Calcium Urine pH Urine WBC (Auto) Urine Creatinine Acetaminophen 04/24/21 04/24/21 04/24/21 11:33 11:52 17:49 WBC RBC Hct MCV RDW Plt Count Lymph % (Auto) Seg Neutrophils % Seg Neuts % (Manual) Lymphocytes % (Manual) Monocytes % (Manual) Seg Neutrophils # Seg Neutrophils # Man Lymphocytes # (Manual) Monocytes # (Manual) ABG pH POC ABG pCO2 POC ABG pO2 72.7 L ABG Hemoglobin 11.6 L ABG Oxyhemoglobin 92.9 L ABG Sodium ABG Potassium ABG Chloride ABG Glucose 269 H Carboxyhemoglobin Sodium Potassium Chloride BUN Creatinine Glucose POC Glucose 223 H 252 H Calcium Phosphorus Magnesium AST Total Creatine Kinase CK-MB (CK-2) Troponin T Albumin HDL Cholesterol TSH Free T3 Index Arterial Blood Glucose 269 H Arterial Blood Ionized Calcium Urine pH Urine WBC (Auto) Urine Creatinine Acetaminophen 04/24/21 04/24/21 04/25/21 21:00 23:48 03:06 WBC RBC Hct MCV RDW Plt Count Lymph % (Auto) Seg Neutrophils % Seg Neuts % (Manual) Lymphocytes % (Manual) Monocytes % (Manual) Seg Neutrophils # Seg Neutrophils # Man Lymphocytes # (Manual) Monocytes # (Manual) ABG pH 7.521 H 7.451 H POC ABG pCO2 POC ABG pO2 80.7 L 77.1 L ABG Hemoglobin 10.4 L 11.2 L ABG Oxyhemoglobin ABG Sodium ABG Potassium ABG Chloride ABG Glucose 186 H 165 H Carboxyhemoglobin 0 L Sodium Potassium Chloride BUN Creatinine Glucose POC Glucose 141 H Calcium Phosphorus Magnesium AST Total Creatine Kinase CK-MB (CK-2) Troponin T Albumin HDL Cholesterol TSH Free T3 Index Arterial Blood Glucose 186 H 165 H Arterial Blood Ionized Calcium Urine pH Urine WBC (Auto) Urine Creatinine Acetaminophen 04/25/21 04/25/21 04/25/21 03:56 03:56 06:03 WBC 12.3 H RBC 3.40 L Hct MCV RDW Plt Count Lymph % (Auto) Seg Neutrophils % Seg Neuts % (Manual) Lymphocytes % (Manual) Monocytes % (Manual) Seg Neutrophils # Seg Neutrophils # Man Lymphocytes # (Manual) Monocytes # (Manual) ABG pH POC ABG pCO2 POC ABG pO2 ABG Hemoglobin ABG Oxyhemoglobin ABG Sodium ABG Potassium ABG Chloride ABG Glucose Carboxyhemoglobin Sodium Potassium Chloride BUN 78 H Creatinine 2.5 H Glucose 152 H POC Glucose 171 H Calcium Phosphorus Magnesium AST Total Creatine Kinase CK-MB (CK-2) Troponin T Albumin HDL Cholesterol TSH Free T3 Index Arterial Blood Glucose Arterial Blood Ionized Calcium Urine pH Urine WBC (Auto) Urine Creatinine Acetaminophen 04/25/21 11:43 WBC RBC Hct MCV RDW Plt Count Lymph % (Auto) Seg Neutrophils % Seg Neuts % (Manual) Lymphocytes % (Manual) Monocytes % (Manual) Seg Neutrophils # Seg Neutrophils # Man Lymphocytes # (Manual) Monocytes # (Manual) ABG pH POC ABG pCO2 POC ABG pO2 ABG Hemoglobin ABG Oxyhemoglobin ABG Sodium ABG Potassium ABG Chloride ABG Glucose Carboxyhemoglobin Sodium Potassium Chloride BUN Creatinine Glucose POC Glucose 181 H Calcium Phosphorus Magnesium AST Total Creatine Kinase CK-MB (CK-2) Troponin T Albumin HDL Cholesterol TSH Free T3 Index Arterial Blood Glucose Arterial Blood Ionized Calcium Urine pH Urine WBC (Auto) Urine Creatinine Acetaminophen Chest x-ray: image reviewed (no new infiltrate) Allied health notes reviewed: nursing
[2021-04-25] MEDS: TAMSULOSIN 0.4 MG CAP PO SCH (14:39)
--- NOTE | 2021-04-25 17:22 | Progress Note ---
Assessment and Plan Recommend PRN IV Lasix with close monitoring of volume status and renal indices. Continue other present mgmt as per Primary teams. Pt seen in conjunction with Dr. Sue, who agrees with the assessment and plan of care. - Patient Problems (1) Acute respiratory failure Current Visit: Yes Status: Acute (2) Acute encephalopathy Current Visit: Yes Status: Acute (3) UTI (urinary tract infection) Current Visit: Yes Status: Acute (4) Rhabdomyolysis Current Visit: Yes Status: Acute Qualifiers: Encounter type: initial encounter (5) Acute kidney injury superimposed on CKD Current Visit: Yes Status: Acute (6) CAD (coronary artery disease) Current Visit: Yes Status: Chronic Qualifiers: Coronary Disease-Associated Artery/Lesion type: [place] artery [place] vs. transplanted heart: [place] heart (7) HTN (hypertension) Current Visit: Yes Status: Chronic Qualifiers: Hypertension type: essential hypertension Qualified Code(s): I10 - Essential (primary) hypertension (8) HLD (hyperlipidemia) Current Visit: Yes Status: Chronic Qualifiers: Hyperlipidemia type: mixed hyperlipidemia Qualified Code(s): E78.2 - Mixed hyperlipidemia (9) DM2 (diabetes mellitus, type 2) Current Visit: Yes Status: Chronic (10) Hypothyroidism Current Visit: Yes Status: Chronic (11) Atrial fibrillation Current Visit: Yes Status: Resolved Qualifiers: Atrial fibrillation type: paroxysmal Qualified Code(s): I48.0 - Paroxysmal atrial fibrillation Plan to address problem: < 24 hrs duration Subjective Date of service: 04/25/21 Principal diagnosis: AMS Interval history: Pt re-intubated overnight. Tele reviewed - SR 70-80s w/PACs. Objective Last Vital Signs Temp 98.9 F 04/25/21 16:05 Pulse 85 04/25/21 16:29 Resp 16 04/25/21 15:01 BP 139/59 04/25/21 16:29 Pulse Ox 94 04/25/21 16:29 - Physical Examination General: Other (intubated) HEENT: Positive: Normocephaly Neck: Positive: neck supple, trachea midline. Negative: JVD/HJR Cardiac: Positive: Reg Rate and Rhythm, S1/S2 Lungs: Positive: Rhonchi (bilaterally) Neuro: Positive: Other (intubated) Abdomen: Positive: Unremarkable Skin: Negative: Rash Musculoskeletal: No Fluid Collection Extremities: Present: lower extr. pulses, edema - Labs and Meds CBC 04/25/21 Range/Units 03:56 WBC 12.3 H (4.5-11.0) K/mm3 RBC 3.40 L (3.65-5.03) M/mm3 Hgb 10.4 (10.1-14.3) gm/dl Hct 32.5 (30.3-42.9) % Plt Count 253 (140-440) K/mm3 Comprehensive Metabolic Panel 04/25/21 Range/Units 03:56 Sodium 140 (137-145) mmol/L Potassium 4.0 (3.6-5.0) mmol/L Chloride 101.4 (98-107) mmol/L Carbon Dioxide 29 (22-30) mmol/L BUN 78 H (7-17) mg/dL Creatinine 2.5 H (0.6-1.2) mg/dL Glucose 152 H (65-100) mg/dL Calcium 9.4 (8.4-10.2) mg/dL - Imaging and Cardiology EKG: report reviewed, image reviewed Echo: report reviewed (04/15/2021 - EF 45-50%, mild concentric LVH, no LV thrombus, no significant valvular abnormalities) Cardiac cath: report reviewed (08/2017 - multivessal CAD (pLAD 70%, mid-distal LAD 70%, diag ostium 80%, Cfx/obtuse donovan 60%, RCA 80%, EF 60%, LVEDP 12mmHg) - Telemetry EKG Rhythm: Sinus Rhythm - EKG Sinus rhythms and dysrhythmias: sinus rhythm AV and intraventricular conduction: left bundle branch block - Allied health notes Allied health notes reviewed: nursing
[2021-04-25] MEDS: LATANOPROST 0.005% OPHTH SOLN 2.5 ML OU SCH (18:09)
[2021-04-25] MEDS ORDERED: FUROSEMIDE 40 MG/4 ML INJ IV ONE (18:23)
[2021-04-25] MEDS: PRAVASTATIN 20 MG TAB PO SCH (22:22)
[2021-04-26] MEDS: IPRATROPIUM/ALBUTEROL SULFATE 3 ML AMPUL.NEB IH SCH ×4 (02:01→20:17)
[2021-04-26] MEDS: ACETAMINOPHEN 325 MG TAB PO PRN ×2 (04:26→12:05)
--- NOTE | 2021-04-26 05:28 | XRay Report ---
CHEST 1 VIEW [id number] INDICATION / CLINICAL INFORMATION: follow up respiratory failure COMPARISON: 04/25/2021 FINDINGS: SUPPORT DEVICES: Stable HEART / MEDIASTINUM: Stable LUNGS / PLEURA: Infiltrate in the right base appears improved. Mild atelectasis continues in the left base. No pneumothorax. ADDITIONAL FINDINGS: No significant additional findings. Signer Name: Ganesh Olmos MD Signed: 04/26/2021 5:24 AM Workstation Name: [id number]
[2021-04-26] MEDS: INSULIN LISPRO 100 UNIT/ML SUB-Q SCH ×4 (05:35→17:53)
[2021-04-26] MEDS: LEVOTHYROXINE 25 MCG TAB PO SCH (05:58)
[2021-04-26] MEDS ORDERED: VANCOMYCIN PHARMACY TO DOSE IV SCH (08:00)
[2021-04-26] MEDS ORDERED: CEFEPIME/NS 1 GM/100 ML 1 GM/100 ML BAG IV SCH (08:00)
[2021-04-26] MEDS: CEFEPIME 0.5 GM in SODIUM CHLORIDE 0.9% 100 ML IV SCH ×2 (09:05→21:19)
[2021-04-26] MEDS ORDERED: VANCOMYCIN 1,750 MG in SODIUM CHLORIDE 0.9% 500 ML 500 ML IV ONE (10:00)
[2021-04-26] MEDS: MINERAL OIL/PETROLATUM, WHITE OPHTH OINT 3.5 GM OU PRN (10:05)
[2021-04-26] MEDS: INSULIN GLARGINE 100 UNITS/ML SUB-Q SCH (10:05)
[2021-04-26] MEDS: METOPROLOL TARTRATE 25 MG TAB PO SCH ×2 (10:06→21:19)
[2021-04-26] MEDS: CLOPIDOGREL 75 MG TAB PO SCH (10:06)
[2021-04-26] MEDS: TAMSULOSIN 0.4 MG CAP PO SCH (10:06)
[2021-04-26] MEDS: SCOPOLAMINE TRANSDERMAL PATCH 72 HR TD SCH (10:06)
[2021-04-26] MEDS: hydrALAZINE 100 MG TAB PO SCH ×3 (10:06→21:20)
[2021-04-26] MEDS: amLODIPine 10 MG TAB PO SCH (10:06)
[2021-04-26] MEDS: FAMOTIDINE 20 MG TAB PO SCH (10:06)
[2021-04-26] MEDS: ASPIRIN 81 MG TAB CHEW PO SCH (10:06)
[2021-04-26] MEDS: HEPARIN 5,000 UNIT/1 ML VIAL SUB-Q SCH ×2 (10:06→21:18)
[2021-04-26] MEDS: TIMOLOL 0.5% OPHTH SOLN 5 ML OU SCH (10:07)
[2021-04-26] MEDS: BRIMONIDINE 0.15% OPHTH SOLN OU SCH ×2 (10:08→21:19)
[2021-04-26 10:10] LABS: Hematocrit 31.5 % (30.3-42.9); Hemoglobin 10.3 gm/dl (10.1-14.3); Mean Corpuscular HGB Conc 33 % (30-34); Mean Corpuscular Volume 95 fl (79-97); Platelet Count 279 K/mm3 (140-440); Red Blood Count 3.32 M/mm3 (3.65-5.03); Red Cell Distribution Width 14.9 % (13.2-15.2)
[2021-04-26 10:32] LABS: Calcium 9.1 mg/dL (8.4-10.2)
--- NOTE | 2021-04-26 11:07 | Progress Note ---
Assessment and Plan No cardiac contraindications to trach/PEG. No further bradycardia or other arrhythmias noted. Continue BB as tolerated. Continue other present mgmt as per Primary teams. Pt seen in conjunction with Dr. Tejeda, who agrees with the assessment and plan of care. - Patient Problems (1) Acute respiratory failure Current Visit: Yes Status: Acute (2) Acute encephalopathy Current Visit: Yes Status: Acute (3) UTI (urinary tract infection) Current Visit: Yes Status: Acute (4) Rhabdomyolysis Current Visit: Yes Status: Acute Qualifiers: Encounter type: initial encounter (5) Acute kidney injury superimposed on CKD Current Visit: Yes Status: Acute (6) CAD (coronary artery disease) Current Visit: Yes Status: Chronic Qualifiers: Coronary Disease-Associated Artery/Lesion type: [place] artery [place] vs. transplanted heart: [place] heart (7) HTN (hypertension) Current Visit: Yes Status: Chronic Qualifiers: Hypertension type: essential hypertension Qualified Code(s): I10 - Essential (primary) hypertension (8) HLD (hyperlipidemia) Current Visit: Yes Status: Chronic Qualifiers: Hyperlipidemia type: mixed hyperlipidemia Qualified Code(s): E78.2 - Mixed hyperlipidemia (9) DM2 (diabetes mellitus, type 2) Current Visit: Yes Status: Chronic (10) Hypothyroidism Current Visit: Yes Status: Chronic (11) Atrial fibrillation Current Visit: Yes Status: Resolved Qualifiers: Atrial fibrillation type: paroxysmal Qualified Code(s): I48.0 - Paroxysmal atrial fibrillation Plan to address problem: < 24 hrs duration Subjective Date of service: 04/26/21 Principal diagnosis: AMS Interval history: Remains intubated. Tele reviewed - SR 70-80s w/PACs. Objective Last Vital Signs Temp 100.4 F H 04/26/21 07:00 Pulse 86 04/26/21 08:01 Resp 17 04/26/21 08:01 BP 107/43 04/26/21 08:01 Pulse Ox 94 04/26/21 08:01 - Physical Examination General: Other (intubated) HEENT: Positive: Normocephaly Neck: Positive: neck supple, trachea midline. Negative: JVD/HJR Cardiac: Positive: Reg Rate and Rhythm, S1/S2 Lungs: Positive: Other (coarse anteriorly) Neuro: Positive: Other (intubated) Abdomen: Positive: Unremarkable Skin: Negative: Rash Musculoskeletal: No Fluid Collection Extremities: Present: lower extr. pulses, edema - Labs and Meds CBC 04/26/21 Range/Units 09:30 WBC 24.7 H (4.5-11.0) K/mm3 RBC 3.32 L (3.65-5.03) M/mm3 Hgb 10.3 (10.1-14.3) gm/dl Hct 31.5 (30.3-42.9) % Plt Count 279 (140-440) K/mm3 Comprehensive Metabolic Panel 04/26/21 Range/Units 09:30 Sodium 143 (137-145) mmol/L Potassium 3.8 (3.6-5.0) mmol/L Chloride 101.7 (98-107) mmol/L Carbon Dioxide 28 (22-30) mmol/L BUN 82 H (7-17) mg/dL Creatinine 2.7 H (0.6-1.2) mg/dL Glucose 238 H (65-100) mg/dL Calcium 9.1 (8.4-10.2) mg/dL - Imaging and Cardiology EKG: report reviewed, image reviewed Echo: report reviewed (04/15/2021 - EF 45-50%, mild concentric LVH, no LV thrombus, no significant valvular abnormalities) Cardiac cath: report reviewed (08/2017 - multivessal CAD (pLAD 70%, mid-distal LAD 70%, diag ostium 80%, Cfx/obtuse donovan 60%, RCA 80%, EF 60%, LVEDP 12mmHg) - Telemetry EKG Rhythm: Sinus Rhythm - EKG Sinus rhythms and dysrhythmias: sinus rhythm AV and intraventricular conduction: left bundle branch block - Allied health notes Allied health notes reviewed: nursing
--- NOTE | 2021-04-26 12:32 | Progress Note ---
Assessment and Plan Acute respiratory failure, on mechanical ventilatory support. Acute toxic metabolic encephalopathy Hypoglycemia ROJELIO Hyperkalemia Rhabdomyolysis Possible seizure activity DM II HTN CAD Obesity H/O breast cancer H/O TIA Leukocytosis Elevated serum TSH, possible hypothyroidism - follow EEG report - she will need a tracheostomy for safe liberation from MVS (POA considering) - continue Flomax re: retention - keep set rate at 10/min - continue care as below otherwise; - continue to wean supplemental oxygen for target O2 sat's > 90% acutely - VAP bundle addressed - continue lung protective strategies - continue bronchodilators with pulmonary hygiene per RT - continue Daily SAT and SBT assessment as tolerated - wean per pulmonary driven protocols otherwise - continue accuchecks with glycemic control per SSI (While critically ill target blood glucose of 140-180 mg/dL; avoid hypoglycemia) - sedation prn for target RASS 0 to -1 - avoid nephrotoxins, renally dose all medications - continue to avoid benzodiazepine's, reduce the possibility of delirium - follow clinically off AB's; trend fevers / WBC - prn analgesia per CPOT score - Maintenance of sleep-wake cycle, avoid delirium - continue enteral nutritional support at goal rate as tolerated - G.I. & VTE prophylaxis - PT/OT/ROM exercises - continue mobility protocols for pressure ulcer prophylaxis - Monitor hemodynamics closely - continue other care per attending / other consultants - discharge planning ongoing concurrently .... Re-evaluate in am & prn CONDITION: CRITICAL PROGNOSIS: GUARDED CODE STATUS: FULL CODE The high probability of a clinically significant, sudden or life-threatening deterioration of the [respiratory, cardiovascular, GI & neurologic] system(s) required my full and direct attention, intervention and personal management. The aggregate critical care time was [38] minutes without overlap. Time includes spent on; [x] Data Review and interpretation [x] Patient assessment and monitoring of vital signs [x] Documentation [x] Medication orders and management Subjective Date of service: 04/26/21 Principal diagnosis: Ac. resp failure; AMS; Hypoglycemia; ROJELIO; Hyperkalemia; DM II Interval history: Patient is seen today for: Acute respiratory failure; AMS; Hypoglycemia; ROJELIO; Hyperkalemia; DM II; H/O breast cancer; Elevated serum TSH, possible hypothyroidism Seen and examined at bedside; 24hour events reviewed; nursing and respiratory care staff consulted; no adverse overnight events reported to me; resting peacefully in bed; remains on MVS; tolerating daytime SBT's; discussed care plan at length with her nephew / POA and he will consider tracheostomy as she was refused transfer to [facility] Objective Vital Signs - 12hr 04/26/21 04/26/21 04/26/21 01:01 01:31 02:01 Temperature Pulse Rate 98 H 104 H 106 H Pulse Rate [ Bilateral] Pulse Rate [ From Monitor] Respiratory 24 20 17 Rate Respiratory Rate [Bilateral ] Blood Pressure 139/51 104/61 102/63 O2 Sat by Pulse 95 94 97 Oximetry 04/26/21 04/26/21 04/26/21 02:02 02:31 03:01 Temperature Pulse Rate 99 H 98 H Pulse Rate [ 100 H Bilateral] Pulse Rate [ From Monitor] Respiratory 17 19 Rate Respiratory 25 H Rate [Bilateral ] Blood Pressure 116/47 116/47 O2 Sat by Pulse 96 97 Oximetry 04/26/21 04/26/21 04/26/21 03:31 04:00 04:01 Temperature Pulse Rate 100 H 76 96 H Pulse Rate [ Bilateral] Pulse Rate [ 96 H From Monitor] Respiratory 19 20 Rate Respiratory Rate [Bilateral ] Blood Pressure 113/55 113/55 O2 Sat by Pulse 96 98 97 Oximetry 04/26/21 04/26/21 04/26/21 04:29 04:31 05:01 Temperature Pulse Rate 98 H 112 H 99 H Pulse Rate [ Bilateral] Pulse Rate [ From Monitor] Respiratory 23 19 Rate Respiratory Rate [Bilateral ] Blood Pressure 153/79 136/65 153/79 O2 Sat by Pulse 97 97 97 Oximetry 04/26/21 04/26/21 04/26/21 05:30 06:01 06:31 Temperature Pulse Rate 98 H 108 H 104 H Pulse Rate [ Bilateral] Pulse Rate [ From Monitor] Respiratory 17 21 21 Rate Respiratory Rate [Bilateral ] Blood Pressure 142/95 137/102 143/66 O2 Sat by Pulse 97 97 98 Oximetry 04/26/21 04/26/21 04/26/21 07:00 07:31 07:38 Temperature 100.4 F H Pulse Rate 100 H 95 H Pulse Rate [ 104 H Bilateral] Pulse Rate [ From Monitor] Respiratory 21 17 Rate Respiratory 20 Rate [Bilateral ] Blood Pressure 136/94 136/58 O2 Sat by Pulse 98 97 Oximetry 04/26/21 04/26/21 04/26/21 07:41 08:00 08:01 Temperature Pulse Rate 97 H 74 86 Pulse Rate [ Bilateral] Pulse Rate [ 96 H From Monitor] Respiratory 17 Rate Respiratory Rate [Bilateral ] Blood Pressure 136/58 107/43 O2 Sat by Pulse 97 98 94 Oximetry 04/26/21 04/26/21 04/26/21 08:31 09:01 09:31 Temperature Pulse Rate 94 H 98 H 84 Pulse Rate [ Bilateral] Pulse Rate [ From Monitor] Respiratory 20 17 11 L Rate Respiratory Rate [Bilateral ] Blood Pressure 127/61 125/54 132/48 O2 Sat by Pulse 98 97 96 Oximetry 04/26/21 04/26/21 04/26/21 10:00 10:30 11:00 Temperature Pulse Rate 97 H 90 96 H Pulse Rate [ Bilateral] Pulse Rate [ From Monitor] Respiratory 25 H 19 23 Rate Respiratory Rate [Bilateral ] Blood Pressure 146/70 118/54 128/68 O2 Sat by Pulse 98 98 98 Oximetry 04/26/21 04/26/21 11:56 12:00 Temperature 100.0 F H Pulse Rate 95 H Pulse Rate [ Bilateral] Pulse Rate [ From Monitor] Respiratory Rate Respiratory Rate [Bilateral ] Blood Pressure 154/64 O2 Sat by Pulse 98 Oximetry Constitutional: no acute distress, other (elderly obese female with mildly increased respiratory effort at rest on MVS) Eyes: non-icteric (Patient obese and having mild respiratory distress at rest) ENT: oropharynx moist, other (ETT 24 cm RICARDO) Neck: supple, no lymphadenopathy, no JVD, other (large circumference) Effort: mildly labored Ascultation: Bilateral: diminished breath sounds, rhonchi Percussion: Bilateral: not dull Cardiovascular: regular rate and rhythm Gastrointestinal: normoactive bowel sounds, soft, non-tender, non-distended (protuberant) Integumentary: normal Extremities: no cyanosis, no edema, pulses normal, no ischemia or petechiae Neurologic: non-focal exam (grossly with intermittent spontaneous movement to extremities but ? mild posturing (decerebrate)), pupils equal and round, CN II- XII normal Psychiatric: mood appropriate, affect normal CBC and BMP: 04/26/21 09:30 04/26/21 09:30 ABG, PT/INR, D-dimer: ABG ABG pH 7.529 (7.320-7.450) H 04/26/21 04:30 POC ABG pCO2 35.4 mmHg (32.0-48.0) 04/26/21 04:30 POC ABG pO2 66.1 mmHg (83-108) L 04/26/21 04:30 POC ABG HCO3 28.8 04/26/21 04:30 ABG O2 Saturation 93.4 (0-100) 04/26/21 04:30 PT/INR, D-dimer PT 12.2 Sec. (12.2-14.9) 04/15/21 17:20 INR 0.91 (0.87-1.13) 04/15/21 17:20 Abnormal lab findings: Abnormal Labs 04/15/21 04/15/21 04/15/21 17:00 17:20 17:20 WBC 11.2 H RBC Hct 43.0 H MCV RDW 15.3 H Plt Count Lymph % (Auto) 12.8 L Seg Neutrophils % 82.4 H Seg Neuts % (Manual) Lymphocytes % (Manual) Monocytes % (Manual) Seg Neutrophils # 9.3 H Seg Neutrophils # Man Lymphocytes # (Manual) Monocytes # (Manual) ABG pH POC ABG pCO2 POC ABG pO2 ABG Hemoglobin ABG Oxyhemoglobin ABG Sodium ABG Potassium ABG Chloride ABG Glucose Carboxyhemoglobin Sodium 129 L Potassium 7.1 H* Chloride 91.9 L BUN 35 H Creatinine 2.8 H Glucose POC Glucose 191 H Calcium Phosphorus Magnesium AST 69 H Total Creatine Kinase CK-MB (CK-2) Troponin T Albumin HDL Cholesterol TSH Free T3 Index Arterial Blood Glucose Arterial Blood Ionized Calcium Urine pH Urine WBC (Auto) Urine Creatinine Acetaminophen 04/15/21 04/15/21 04/15/21 17:20 17:20 17:20 WBC RBC Hct MCV RDW Plt Count Lymph % (Auto) Seg Neutrophils % Seg Neuts % (Manual) Lymphocytes % (Manual) Monocytes % (Manual) Seg Neutrophils # Seg Neutrophils # Man Lymphocytes # (Manual) Monocytes # (Manual) ABG pH POC ABG pCO2 POC ABG pO2 ABG Hemoglobin ABG Oxyhemoglobin ABG Sodium ABG Potassium ABG Chloride ABG Glucose Carboxyhemoglobin Sodium Potassium Chloride BUN Creatinine Glucose POC Glucose Calcium Phosphorus Magnesium AST Total Creatine Kinase 1000 H CK-MB (CK-2) Troponin T Albumin HDL Cholesterol TSH 14.190 H Free T3 Index Arterial Blood Glucose Arterial Blood Ionized Calcium Urine pH Urine WBC (Auto) Urine Creatinine Acetaminophen 5.0 L 04/15/21 04/15/21 04/15/21 20:49 21:23 23:15 WBC RBC Hct MCV RDW Plt Count Lymph % (Auto) Seg Neutrophils % Seg Neuts % (Manual) Lymphocytes % (Manual) Monocytes % (Manual) Seg Neutrophils # Seg Neutrophils # Man Lymphocytes # (Manual) Monocytes # (Manual) ABG pH 7.557 H POC ABG pCO2 30.0 L POC ABG pO2 493.3 H ABG Hemoglobin ABG Oxyhemoglobin 99.0 H ABG Sodium 131.5 L ABG Potassium 4.7 H ABG Chloride 94.0 L ABG Glucose 218 H Carboxyhemoglobin Sodium Potassium Chloride BUN Creatinine Glucose POC Glucose 173 H 207 H Calcium Phosphorus Magnesium AST Total Creatine Kinase CK-MB (CK-2) Troponin T Albumin HDL Cholesterol TSH Free T3 Index Arterial Blood Glucose 218 H Arterial Blood Ionized Calcium 5.4 H Urine pH Urine WBC (Auto) Urine Creatinine Acetaminophen 04/16/21 04/16/21 04/16/21 00:09 00:12 00:19 WBC RBC Hct MCV RDW Plt Count Lymph % (Auto) Seg Neutrophils % Seg Neuts % (Manual) Lymphocytes % (Manual) Monocytes % (Manual) Seg Neutrophils # Seg Neutrophils # Man Lymphocytes # (Manual) Monocytes # (Manual) ABG pH POC ABG pCO2 POC ABG pO2 ABG Hemoglobin ABG Oxyhemoglobin ABG Sodium ABG Potassium ABG Chloride ABG Glucose Carboxyhemoglobin Sodium Potassium 6.7 H* Chloride BUN Creatinine Glucose POC Glucose Calcium Phosphorus Magnesium AST Total Creatine Kinase CK-MB (CK-2) Troponin T Albumin HDL Cholesterol TSH Free T3 Index Arterial Blood Glucose Arterial Blood Ionized Calcium Urine pH 9.0 H Urine WBC (Auto) Urine Creatinine 24.4 H Acetaminophen 04/16/21 04/16/21 04/16/21 03:43 03:55 05:02 WBC 21.2 H RBC Hct 43.4 H MCV 98 H RDW Plt Count Lymph % (Auto) Seg Neutrophils % Seg Neuts % (Manual) 84.0 H Lymphocytes % (Manual) 2.0 L Monocytes % (Manual) 10.0 H Seg Neutrophils # Seg Neutrophils # Man 17.8 H Lymphocytes # (Manual) 0.4 L Monocytes # (Manual) 2.1 H ABG pH 7.461 H POC ABG pCO2 POC ABG pO2 ABG Hemoglobin ABG Oxyhemoglobin ABG Sodium 126.8 L ABG Potassium 5.4 H ABG Chloride 90.0 L ABG Glucose 325 H Carboxyhemoglobin Sodium Potassium Chloride BUN Creatinine Glucose POC Glucose 391 H Calcium Phosphorus Magnesium AST Total Creatine Kinase CK-MB (CK-2) Troponin T Albumin HDL Cholesterol TSH Free T3 Index Arterial Blood Glucose 325 H Arterial Blood Ionized Calcium Urine pH Urine WBC (Auto) Urine Creatinine Acetaminophen 04/16/21 04/16/21 04/16/21 05:02 11:34 16:09 WBC RBC Hct MCV RDW Plt Count Lymph % (Auto) Seg Neutrophils % Seg Neuts % (Manual) Lymphocytes % (Manual) Monocytes % (Manual) Seg Neutrophils # Seg Neutrophils # Man Lymphocytes # (Manual) Monocytes # (Manual) ABG pH POC ABG pCO2 POC ABG pO2 ABG Hemoglobin ABG Oxyhemoglobin ABG Sodium ABG Potassium ABG Chloride ABG Glucose Carboxyhemoglobin Sodium 131 L Potassium 5.9 H Chloride 88.7 L BUN 34 H Creatinine 2.9 H Glucose 249 H POC Glucose 382 H 300 H Calcium 10.4 H Phosphorus Magnesium AST 65 H Total Creatine Kinase CK-MB (CK-2) Troponin T Albumin 3.8 L HDL Cholesterol TSH Free T3 Index Arterial Blood Glucose Arterial Blood Ionized Calcium Urine pH Urine WBC (Auto) Urine Creatinine Acetaminophen 04/16/21 04/16/21 04/16/21 18:15 19:01 19:01 WBC RBC Hct MCV RDW Plt Count Lymph % (Auto) Seg Neutrophils % Seg Neuts % (Manual) Lymphocytes % (Manual) Monocytes % (Manual) Seg Neutrophils # Seg Neutrophils # Man Lymphocytes # (Manual) Monocytes # (Manual) ABG pH POC ABG pCO2 POC ABG pO2 ABG Hemoglobin ABG Oxyhemoglobin ABG Sodium ABG Potassium ABG Chloride ABG Glucose Carboxyhemoglobin Sodium 125 L Potassium 5.5 H Chloride 84.5 L BUN 37 H Creatinine 3.5 H Glucose 236 H POC Glucose 287 H Calcium Phosphorus Magnesium AST Total Creatine Kinase CK-MB (CK-2) Troponin T Albumin HDL Cholesterol TSH Free T3 Index 1.1 L Arterial Blood Glucose Arterial Blood Ionized Calcium Urine pH Urine WBC (Auto) Urine Creatinine Acetaminophen 04/16/21 04/16/21 04/17/21 19:01 23:48 03:09 WBC RBC Hct MCV RDW Plt Count Lymph % (Auto) Seg Neutrophils % Seg Neuts % (Manual) Lymphocytes % (Manual) Monocytes % (Manual) Seg Neutrophils # Seg Neutrophils # Man Lymphocytes # (Manual) Monocytes # (Manual) ABG pH 7.518 H POC ABG pCO2 POC ABG pO2 ABG Hemoglobin ABG Oxyhemoglobin ABG Sodium 126.4 L ABG Potassium ABG Chloride 89.0 L ABG Glucose 200 H Carboxyhemoglobin Sodium Potassium 5.6 H Chloride BUN Creatinine Glucose POC Glucose 243 H Calcium Phosphorus Magnesium AST Total Creatine Kinase CK-MB (CK-2) Troponin T Albumin HDL Cholesterol TSH Free T3 Index Arterial Blood Glucose 200 H Arterial Blood Ionized Calcium 4.4 L Urine pH Urine WBC (Auto) Urine Creatinine Acetaminophen 04/17/21 04/17/21 04/17/21 05:04 06:14 11:55 WBC RBC Hct MCV RDW Plt Count Lymph % (Auto) Seg Neutrophils % Seg Neuts % (Manual) Lymphocytes % (Manual) Monocytes % (Manual) Seg Neutrophils # Seg Neutrophils # Man Lymphocytes # (Manual) Monocytes # (Manual) ABG pH POC ABG pCO2 POC ABG pO2 ABG Hemoglobin ABG Oxyhemoglobin ABG Sodium ABG Potassium ABG Chloride ABG Glucose Carboxyhemoglobin Sodium 129 L Potassium Chloride 86.1 L BUN 39 H Creatinine 3.5 H Glucose 202 H POC Glucose 208 H 276 H Calcium Phosphorus Magnesium AST Total Creatine Kinase 750 H CK-MB (CK-2) Troponin T 0.119 H* D Albumin HDL Cholesterol 61 H TSH Free T3 Index Arterial Blood Glucose Arterial Blood Ionized Calcium Urine pH Urine WBC (Auto) Urine Creatinine Acetaminophen 04/17/21 04/17/21 04/17/21 15:35 15:35 17:07 WBC 17.1 H RBC Hct MCV RDW Plt Count Lymph % (Auto) Seg Neutrophils % Seg Neuts % (Manual) Lymphocytes % (Manual) Monocytes % (Manual) Seg Neutrophils # Seg Neutrophils # Man Lymphocytes # (Manual) Monocytes # (Manual) ABG pH POC ABG pCO2 POC ABG pO2 ABG Hemoglobin ABG Oxyhemoglobin ABG Sodium ABG Potassium ABG Chloride ABG Glucose Carboxyhemoglobin Sodium Potassium Chloride BUN Creatinine Glucose POC Glucose 148 H Calcium Phosphorus Magnesium AST Total Creatine Kinase 615 H CK-MB (CK-2) 9.1 H Troponin T Albumin HDL Cholesterol TSH Free T3 Index Arterial Blood Glucose Arterial Blood Ionized Calcium Urine pH Urine WBC (Auto) Urine Creatinine Acetaminophen 04/18/21 04/18/21 04/18/21 00:01 03:00 05:24 WBC RBC Hct MCV RDW Plt Count Lymph % (Auto) Seg Neutrophils % Seg Neuts % (Manual) Lymphocytes % (Manual) Monocytes % (Manual) Seg Neutrophils # Seg Neutrophils # Man Lymphocytes # (Manual) Monocytes # (Manual) ABG pH 7.497 H POC ABG pCO2 POC ABG pO2 77.7 L ABG Hemoglobin 10.4 L ABG Oxyhemoglobin ABG Sodium 129.7 L ABG Potassium 2.8 L ABG Chloride 92.0 L ABG Glucose 134 H Carboxyhemoglobin 0.3 L Sodium Potassium Chloride BUN Creatinine Glucose POC Glucose 192 H 162 H Calcium Phosphorus Magnesium AST Total Creatine Kinase CK-MB (CK-2) Troponin T Albumin HDL Cholesterol TSH Free T3 Index Arterial Blood Glucose 134 H Arterial Blood Ionized Calcium 4.3 L Urine pH Urine WBC (Auto) Urine Creatinine Acetaminophen 04/18/21 04/18/21 04/18/21 05:34 05:34 05:43 WBC 15.3 H RBC 3.34 L Hct MCV RDW 15.3 H Plt Count Lymph % (Auto) Seg Neutrophils % Seg Neuts % (Manual) Lymphocytes % (Manual) Monocytes % (Manual) Seg Neutrophils # Seg Neutrophils # Man Lymphocytes # (Manual) Monocytes # (Manual) ABG pH POC ABG pCO2 POC ABG pO2 ABG Hemoglobin ABG Oxyhemoglobin ABG Sodium ABG Potassium ABG Chloride ABG Glucose Carboxyhemoglobin Sodium 134 L Potassium 3.0 L D Chloride 93.5 L BUN 42 H Creatinine 3.1 H Glucose 152 H POC Glucose Calcium Phosphorus Magnesium 1.40 L AST Total Creatine Kinase 427 H CK-MB (CK-2) Troponin T 0.081 H D Albumin HDL Cholesterol TSH Free T3 Index Arterial Blood Glucose Arterial Blood Ionized Calcium Urine pH Urine WBC (Auto) Urine Creatinine Acetaminophen 04/18/21 04/18/21 04/18/21 09:11 11:34 17:24 WBC RBC Hct MCV RDW Plt Count Lymph % (Auto) Seg Neutrophils % Seg Neuts % (Manual) Lymphocytes % (Manual) Monocytes % (Manual) Seg Neutrophils # Seg Neutrophils # Man Lymphocytes # (Manual) Monocytes # (Manual) ABG pH POC ABG pCO2 POC ABG pO2 ABG Hemoglobin ABG Oxyhemoglobin ABG Sodium ABG Potassium ABG Chloride ABG Glucose Carboxyhemoglobin Sodium Potassium Chloride BUN Creatinine Glucose POC Glucose 170 H 151 H Calcium Phosphorus Magnesium AST Total Creatine Kinase CK-MB (CK-2) Troponin T Albumin HDL Cholesterol TSH Free T3 Index Arterial Blood Glucose Arterial Blood Ionized Calcium Urine pH Urine WBC (Auto) 34.0 H Urine Creatinine Acetaminophen 04/18/21 04/19/21 04/19/21 23:18 04:09 05:19 WBC RBC Hct MCV RDW Plt Count Lymph % (Auto) Seg Neutrophils % Seg Neuts % (Manual) Lymphocytes % (Manual) Monocytes % (Manual) Seg Neutrophils # Seg Neutrophils # Man Lymphocytes # (Manual) Monocytes # (Manual) ABG pH 7.476 H POC ABG pCO2 POC ABG pO2 79.4 L ABG Hemoglobin 10.7 L ABG Oxyhemoglobin ABG Sodium 131.2 L ABG Potassium 2.8 L ABG Chloride 94.0 L ABG Glucose 209 H Carboxyhemoglobin 0.3 L Sodium Potassium Chloride BUN Creatinine Glucose POC Glucose 182 H 204 H Calcium Phosphorus Magnesium AST Total Creatine Kinase CK-MB (CK-2) Troponin T Albumin HDL Cholesterol TSH Free T3 Index Arterial Blood Glucose 209 H Arterial Blood Ionized Calcium Urine pH Urine WBC (Auto) Urine Creatinine Acetaminophen 04/19/21 04/19/21 04/19/21 07:30 07:30 10:35 WBC 14.8 H RBC 3.20 L Hct MCV 98 H RDW Plt Count 137 L Lymph % (Auto) Seg Neutrophils % Seg Neuts % (Manual) Lymphocytes % (Manual) Monocytes % (Manual) Seg Neutrophils # Seg Neutrophils # Man Lymphocytes # (Manual) Monocytes # (Manual) ABG pH 7.464 H POC ABG pCO2 POC ABG pO2 81.8 L ABG Hemoglobin 10.8 L ABG Oxyhemoglobin ABG Sodium 129.6 L ABG Potassium ABG Chloride 95.0 L ABG Glucose 238 H Carboxyhemoglobin Sodium 133 L Potassium 2.8 L* Chloride 94.4 L BUN 43 H Creatinine 2.7 H Glucose 255 H POC Glucose Calcium 8.0 L Phosphorus Magnesium AST Total Creatine Kinase CK-MB (CK-2) Troponin T 0.060 H D Albumin HDL Cholesterol TSH Free T3 Index Arterial Blood Glucose 238 H Arterial Blood Ionized Calcium Urine pH Urine WBC (Auto) Urine Creatinine Acetaminophen 04/19/21 04/19/21 04/19/21 11:48 20:40 23:04 WBC RBC Hct MCV RDW Plt Count Lymph % (Auto) Seg Neutrophils % Seg Neuts % (Manual) Lymphocytes % (Manual) Monocytes % (Manual) Seg Neutrophils # Seg Neutrophils # Man Lymphocytes # (Manual) Monocytes # (Manual) ABG pH POC ABG pCO2 POC ABG pO2 ABG Hemoglobin ABG Oxyhemoglobin ABG Sodium ABG Potassium ABG Chloride ABG Glucose Carboxyhemoglobin Sodium Potassium 3.4 L D Chloride BUN Creatinine Glucose POC Glucose 208 H 173 H Calcium Phosphorus Magnesium AST Total Creatine Kinase CK-MB (CK-2) Troponin T Albumin HDL Cholesterol TSH Free T3 Index Arterial Blood Glucose Arterial Blood Ionized Calcium Urine pH Urine WBC (Auto) Urine Creatinine Acetaminophen 04/20/21 04/20/21 04/20/21 02:56 03:32 03:32 WBC 13.2 H RBC 3.18 L Hct MCV RDW Plt Count Lymph % (Auto) Seg Neutrophils % Seg Neuts % (Manual) Lymphocytes % (Manual) Monocytes % (Manual) Seg Neutrophils # Seg Neutrophils # Man Lymphocytes # (Manual) Monocytes # (Manual) ABG pH 7.526 H POC ABG pCO2 POC ABG pO2 ABG Hemoglobin 10.5 L ABG Oxyhemoglobin ABG Sodium 133.5 L ABG Potassium ABG Chloride ABG Glucose 157 H Carboxyhemoglobin 0.3 L Sodium 135 L Potassium Chloride 96.7 L BUN 40 H Creatinine 2.3 H Glucose 142 H POC Glucose Calcium Phosphorus Magnesium AST Total Creatine Kinase CK-MB (CK-2) Troponin T 0.065 H Albumin HDL Cholesterol TSH Free T3 Index Arterial Blood Glucose 157 H Arterial Blood Ionized Calcium Urine pH Urine WBC (Auto) Urine Creatinine Acetaminophen 04/20/21 04/20/21 04/20/21 03:46 05:42 11:50 WBC RBC Hct MCV RDW Plt Count Lymph % (Auto) Seg Neutrophils % Seg Neuts % (Manual) Lymphocytes % (Manual) Monocytes % (Manual) Seg Neutrophils # Seg Neutrophils # Man Lymphocytes # (Manual) Monocytes # (Manual) ABG pH POC ABG pCO2 POC ABG pO2 ABG Hemoglobin ABG Oxyhemoglobin ABG Sodium ABG Potassium ABG Chloride ABG Glucose Carboxyhemoglobin Sodium Potassium Chloride BUN Creatinine Glucose POC Glucose 160 H 194 H Calcium Phosphorus 2.10 L Magnesium AST Total Creatine Kinase CK-MB (CK-2) Troponin T Albumin HDL Cholesterol TSH Free T3 Index Arterial Blood Glucose Arterial Blood Ionized Calcium Urine pH Urine WBC (Auto) Urine Creatinine Acetaminophen 04/20/21 04/20/21 04/21/21 17:09 23:18 05:26 WBC RBC Hct MCV RDW Plt Count Lymph % (Auto) Seg Neutrophils % Seg Neuts % (Manual) Lymphocytes % (Manual) Monocytes % (Manual) Seg Neutrophils # Seg Neutrophils # Man Lymphocytes # (Manual) Monocytes # (Manual) ABG pH POC ABG pCO2 POC ABG pO2 ABG Hemoglobin ABG Oxyhemoglobin ABG Sodium ABG Potassium ABG Chloride ABG Glucose Carboxyhemoglobin Sodium Potassium Chloride BUN Creatinine Glucose POC Glucose 153 H 162 H 164 H Calcium Phosphorus Magnesium AST Total Creatine Kinase CK-MB (CK-2) Troponin T Albumin HDL Cholesterol TSH Free T3 Index Arterial Blood Glucose Arterial Blood Ionized Calcium Urine pH Urine WBC (Auto) Urine Creatinine Acetaminophen 04/21/21 04/21/21 04/21/21 05:51 05:51 12:12 WBC RBC 3.20 L Hct MCV 99 H RDW 15.3 H Plt Count Lymph % (Auto) Seg Neutrophils % Seg Neuts % (Manual) Lymphocytes % (Manual) Monocytes % (Manual) Seg Neutrophils # Seg Neutrophils # Man Lymphocytes # (Manual) Monocytes # (Manual) ABG pH POC ABG pCO2 POC ABG pO2 ABG Hemoglobin ABG Oxyhemoglobin ABG Sodium ABG Potassium ABG Chloride ABG Glucose Carboxyhemoglobin Sodium Potassium Chloride 96.6 L BUN 42 H Creatinine 2.1 H Glucose 171 H POC Glucose 167 H Calcium Phosphorus Magnesium AST Total Creatine Kinase CK-MB (CK-2) Troponin T Albumin HDL Cholesterol TSH Free T3 Index Arterial Blood Glucose Arterial Blood Ionized Calcium Urine pH Urine WBC (Auto) Urine Creatinine Acetaminophen 04/21/21 04/21/21 04/22/21 17:13 23:42 05:29 WBC RBC Hct MCV RDW Plt Count Lymph % (Auto) Seg Neutrophils % Seg Neuts % (Manual) Lymphocytes % (Manual) Monocytes % (Manual) Seg Neutrophils # Seg Neutrophils # Man Lymphocytes # (Manual) Monocytes # (Manual) ABG pH POC ABG pCO2 POC ABG pO2 ABG Hemoglobin ABG Oxyhemoglobin ABG Sodium ABG Potassium ABG Chloride ABG Glucose Carboxyhemoglobin Sodium Potassium Chloride BUN Creatinine Glucose POC Glucose 178 H 253 H 208 H Calcium Phosphorus Magnesium AST Total Creatine Kinase CK-MB (CK-2) Troponin T Albumin HDL Cholesterol TSH Free T3 Index Arterial Blood Glucose Arterial Blood Ionized Calcium Urine pH Urine WBC (Auto) Urine Creatinine Acetaminophen 04/22/21 04/22/21 04/22/21 08:00 08:00 12:06 WBC 12.9 H RBC Hct MCV RDW Plt Count Lymph % (Auto) Seg Neutrophils % Seg Neuts % (Manual) Lymphocytes % (Manual) Monocytes % (Manual) Seg Neutrophils # Seg Neutrophils # Man Lymphocytes # (Manual) Monocytes # (Manual) ABG pH POC ABG pCO2 POC ABG pO2 ABG Hemoglobin ABG Oxyhemoglobin ABG Sodium ABG Potassium ABG Chloride ABG Glucose Carboxyhemoglobin Sodium Potassium Chloride BUN 47 H Creatinine 1.9 H Glucose 252 H POC Glucose 298 H Calcium Phosphorus Magnesium AST Total Creatine Kinase CK-MB (CK-2) Troponin T Albumin HDL Cholesterol TSH Free T3 Index Arterial Blood Glucose Arterial Blood Ionized Calcium Urine pH Urine WBC (Auto) Urine Creatinine Acetaminophen 04/22/21 04/22/21 04/23/21 17:34 23:01 05:08 WBC RBC Hct MCV RDW Plt Count Lymph % (Auto) Seg Neutrophils % Seg Neuts % (Manual) Lymphocytes % (Manual) Monocytes % (Manual) Seg Neutrophils # Seg Neutrophils # Man Lymphocytes # (Manual) Monocytes # (Manual) ABG pH POC ABG pCO2 POC ABG pO2 ABG Hemoglobin ABG Oxyhemoglobin ABG Sodium ABG Potassium ABG Chloride ABG Glucose Carboxyhemoglobin Sodium Potassium Chloride BUN Creatinine Glucose POC Glucose 259 H 280 H 223 H Calcium Phosphorus Magnesium AST Total Creatine Kinase CK-MB (CK-2) Troponin T Albumin HDL Cholesterol TSH Free T3 Index Arterial Blood Glucose Arterial Blood Ionized Calcium Urine pH Urine WBC (Auto) Urine Creatinine Acetaminophen 04/23/21 04/23/21 04/23/21 07:02 11:57 17:33 WBC RBC Hct MCV RDW Plt Count Lymph % (Auto) Seg Neutrophils % Seg Neuts % (Manual) Lymphocytes % (Manual) Monocytes % (Manual) Seg Neutrophils # Seg Neutrophils # Man Lymphocytes # (Manual) Monocytes # (Manual) ABG pH POC ABG pCO2 POC ABG pO2 ABG Hemoglobin ABG Oxyhemoglobin ABG Sodium ABG Potassium ABG Chloride ABG Glucose Carboxyhemoglobin Sodium Potassium Chloride 97.7 L BUN 57 H Creatinine 2.0 H Glucose 253 H POC Glucose 310 H 235 H Calcium Phosphorus Magnesium AST Total Creatine Kinase CK-MB (CK-2) Troponin T Albumin HDL Cholesterol TSH Free T3 Index Arterial Blood Glucose Arterial Blood Ionized Calcium Urine pH Urine WBC (Auto) Urine Creatinine Acetaminophen 04/23/21 04/24/21 04/24/21 23:15 05:23 05:46 WBC RBC Hct MCV RDW Plt Count Lymph % (Auto) Seg Neutrophils % Seg Neuts % (Manual) Lymphocytes % (Manual) Monocytes % (Manual) Seg Neutrophils # Seg Neutrophils # Man Lymphocytes # (Manual) Monocytes # (Manual) ABG pH POC ABG pCO2 POC ABG pO2 ABG Hemoglobin ABG Oxyhemoglobin ABG Sodium ABG Potassium ABG Chloride ABG Glucose Carboxyhemoglobin Sodium Potassium 5.2 H D Chloride BUN 68 H Creatinine 2.3 H Glucose 277 H POC Glucose 197 H 274 H Calcium Phosphorus Magnesium AST Total Creatine Kinase CK-MB (CK-2) Troponin T Albumin HDL Cholesterol TSH Free T3 Index Arterial Blood Glucose Arterial Blood Ionized Calcium Urine pH Urine WBC (Auto) Urine Creatinine Acetaminophen 04/24/21 04/24/21 04/24/21 11:33 11:52 17:49 WBC RBC Hct MCV RDW Plt Count Lymph % (Auto) Seg Neutrophils % Seg Neuts % (Manual) Lymphocytes % (Manual) Monocytes % (Manual) Seg Neutrophils # Seg Neutrophils # Man Lymphocytes # (Manual) Monocytes # (Manual) ABG pH POC ABG pCO2 POC ABG pO2 72.7 L ABG Hemoglobin 11.6 L ABG Oxyhemoglobin 92.9 L ABG Sodium ABG Potassium ABG Chloride ABG Glucose 269 H Carboxyhemoglobin Sodium Potassium Chloride BUN Creatinine Glucose POC Glucose 223 H 252 H Calcium Phosphorus Magnesium AST Total Creatine Kinase CK-MB (CK-2) Troponin T Albumin HDL Cholesterol TSH Free T3 Index Arterial Blood Glucose 269 H Arterial Blood Ionized Calcium Urine pH Urine WBC (Auto) Urine Creatinine Acetaminophen 04/24/21 04/24/21 04/25/21 21:00 23:48 03:06 WBC RBC Hct MCV RDW Plt Count Lymph % (Auto) Seg Neutrophils % Seg Neuts % (Manual) Lymphocytes % (Manual) Monocytes % (Manual) Seg Neutrophils # Seg Neutrophils # Man Lymphocytes # (Manual) Monocytes # (Manual) ABG pH 7.521 H 7.451 H POC ABG pCO2 POC ABG pO2 80.7 L 77.1 L ABG Hemoglobin 10.4 L 11.2 L ABG Oxyhemoglobin ABG Sodium ABG Potassium ABG Chloride ABG Glucose 186 H 165 H Carboxyhemoglobin 0 L Sodium Potassium Chloride BUN Creatinine Glucose POC Glucose 141 H Calcium Phosphorus Magnesium AST Total Creatine Kinase CK-MB (CK-2) Troponin T Albumin HDL Cholesterol TSH Free T3 Index Arterial Blood Glucose 186 H 165 H Arterial Blood Ionized Calcium Urine pH Urine WBC (Auto) Urine Creatinine Acetaminophen 04/25/21 04/25/21 04/25/21 03:56 03:56 06:03 WBC 12.3 H RBC 3.40 L Hct MCV RDW Plt Count Lymph % (Auto) Seg Neutrophils % Seg Neuts % (Manual) Lymphocytes % (Manual) Monocytes % (Manual) Seg Neutrophils # Seg Neutrophils # Man Lymphocytes # (Manual) Monocytes # (Manual) ABG pH POC ABG pCO2 POC ABG pO2 ABG Hemoglobin ABG Oxyhemoglobin ABG Sodium ABG Potassium ABG Chloride ABG Glucose Carboxyhemoglobin Sodium Potassium Chloride BUN 78 H Creatinine 2.5 H Glucose 152 H POC Glucose 171 H Calcium Phosphorus Magnesium AST Total Creatine Kinase CK-MB (CK-2) Troponin T Albumin HDL Cholesterol TSH Free T3 Index Arterial Blood Glucose Arterial Blood Ionized Calcium Urine pH Urine WBC (Auto) Urine Creatinine Acetaminophen 04/25/21 04/25/21 04/26/21 11:43 15:37 00:05 WBC RBC Hct MCV RDW Plt Count Lymph % (Auto) Seg Neutrophils % Seg Neuts % (Manual) Lymphocytes % (Manual) Monocytes % (Manual) Seg Neutrophils # Seg Neutrophils # Man Lymphocytes # (Manual) Monocytes # (Manual) ABG pH POC ABG pCO2 POC ABG pO2 ABG Hemoglobin ABG Oxyhemoglobin ABG Sodium ABG Potassium ABG Chloride ABG Glucose Carboxyhemoglobin Sodium Potassium Chloride BUN Creatinine Glucose POC Glucose 181 H 167 H 144 H Calcium Phosphorus Magnesium AST Total Creatine Kinase CK-MB (CK-2) Troponin T Albumin HDL Cholesterol TSH Free T3 Index Arterial Blood Glucose Arterial Blood Ionized Calcium Urine pH Urine WBC (Auto) Urine Creatinine Acetaminophen 04/26/21 04/26/21 04/26/21 04:30 05:44 09:30 WBC RBC Hct MCV RDW Plt Count Lymph % (Auto) Seg Neutrophils % Seg Neuts % (Manual) Lymphocytes % (Manual) Monocytes % (Manual) Seg Neutrophils # Seg Neutrophils # Man Lymphocytes # (Manual) Monocytes # (Manual) ABG pH 7.529 H POC ABG pCO2 POC ABG pO2 66.1 L ABG Hemoglobin 11.2 L ABG Oxyhemoglobin 92.8 L ABG Sodium ABG Potassium ABG Chloride ABG Glucose 216 H Carboxyhemoglobin 0.3 L Sodium Potassium Chloride BUN 82 H Creatinine 2.7 H Glucose 238 H POC Glucose 202 H Calcium Phosphorus Magnesium AST Total Creatine Kinase CK-MB (CK-2) Troponin T Albumin HDL Cholesterol TSH Free T3 Index Arterial Blood Glucose 216 H Arterial Blood Ionized Calcium Urine pH Urine WBC (Auto) Urine Creatinine Acetaminophen 04/26/21 09:30 WBC 24.7 H RBC 3.32 L Hct MCV RDW Plt Count Lymph % (Auto) Seg Neutrophils % Seg Neuts % (Manual) Lymphocytes % (Manual) Monocytes % (Manual) Seg Neutrophils # Seg Neutrophils # Man Lymphocytes # (Manual) Monocytes # (Manual) ABG pH POC ABG pCO2 POC ABG pO2 ABG Hemoglobin ABG Oxyhemoglobin ABG Sodium ABG Potassium ABG Chloride ABG Glucose Carboxyhemoglobin Sodium Potassium Chloride BUN Creatinine Glucose POC Glucose Calcium Phosphorus Magnesium AST Total Creatine Kinase CK-MB (CK-2) Troponin T Albumin HDL Cholesterol TSH Free T3 Index Arterial Blood Glucose Arterial Blood Ionized Calcium Urine pH Urine WBC (Auto) Urine Creatinine Acetaminophen Chest x-ray: image reviewed (no new process) Allied health notes reviewed: nursing
--- NOTE | 2021-04-26 12:57 | Progress Note ---
Assessment and Plan Assessment and plan: This is a 80-year-old female with hypertension, diabetes mellitus, ME, breast cancer s/p double mastectomy, and a TIA who presented with hypoglycemia and altered mental status on 04/15 via EMS. Per EMS patient was unresponsive on their arrival and her blood glucose was 38 and she received 1 amp of dextrose patient continued to be unresponsive and only moaned with her eyes deviating to the left. Work-up in the emergency department revealed SIRS, symptomatic bradycardia, acute metabolic encephalopathy, acute hypoxic respiratory failure, elevated TSH, hyperglycemia, hyponatremia, hyperkalemia, acute kidney injury with ATN, and rhabdomyolysis 04/16: Neurology consulted, COVID-19 PCR negative, D10 drip decreased and eventually discontinued by [facility] and started on D5W for 1 L. Hydralazine as needed. Patient had hyper kalemia today and was treated with D50, insulin and Kayexalate. This time examination patient is on assist control tidal volume 450, rate of 16, PEEP of 6 and 25% FiO2. 04/17: Patient started on low-dose beta-angel per cardiology, CPAP trial again per [facility], BUN/creatinine holding steady and hypochloremia/hyponatremia slightly improved and hypokalemia has resolved. This morning a KUB was obtained which was concerning for ileus versus mechanical obstruction and surgery was c onsulted. Patient was made n.p.o. and NG tube placed to wall suction. Patient was given suppository. Per RN patient did not have a BM even though she was given Kayexalate yesterday. Will obtain a KUB in the a.m. Neurology was consulted yesterday and will await further recommendations. Nephew updated at bedside today, Carlos Romero. -[facility], cardiology, nephrology, neurology, nutrition consulted, appreciate recommendations -04/15 CT head shows age-related atrophic change, chronic small vessel ischemic change, no CT evidence of acute large vessel territory ischemic injury, hemorrhage or mass -04/15 echocardiogram shows left ventricular systolic function borderline, LVEF 45 to 50%, mild concentric LVH, paradoxical septal motion consistent with left bundle branch block with no clot identified in the left ventricle, calcified aortic valve without regurgitation or stenosis, trace MR, trace TR, no AL, RVSP is 24 mmHg -04/17 KUB shows gas-filled and dilated loops of small bowel noted over the upper abdomen largest measuring 5 cm concerning for ileus versus mechanical obstruction -04/18 KUB shows interval resolution of previously seen small bowel dilation -04/18 EEG pending 04/18: Neurology has ordered EEG/MRI B, CCM continues to wean MV. Persistent low grade temperature so we will obtain BCx2/UA. Patient has improving leukocytosis, hyponatremia, renal function studies and hypochloremia. She has hypokalemia today which is being repleted. Surgery has signed off today and has okayed r esumption of TF. [facility] will trial CPAP for longer today and plans to attempt extubation in AM. Family has requested transfer to [facility] and Dr. Gordon will attempt to contact transfer center. I updated her nephew, Carlos Romero over the phone today abouyt current events and update on transfer ([facility] will conduct a utilization review) 04/19: This morning patient is on CPAP trial at the time of examination, noted to be hypertensive and metoprolol increased to home dose, started on synthroid by [facility], lantus started re hyperglycemia, MRI completed with no acute findings. Severe hypokalemia (repleted and Mg pending). [facility] will contact CPAP trial again today with possible trial extubation tomorrow. 04/19 MRI brain shows no restricted diffusion, no hemorrhage,, no radiation, findings consistent with chronic microvascular disease, small bilateral mastoid effusions, mucosal thickening throughout the paranasal sinuses seen within the maxillary sinuses 04/20: Patient's leukocytosis and kidney function tests continue to improve. Patient is hypertensive overnight we will restart home hydralazine. [facility] plans to extubate patient today. Family is attempting to transfer to another facility. EEG pending, RT will atmept to contact pyrotechnist. Urine culture grew gram negative rods. Increase in lantus 04/21: Increase in Lantus, repleted phos. Patient has started this afternoon and was given racemic epinephrine and started on steroids. Patient will have BiPAP as needed. We will recheck BMP in the a.m. renal function studies continues to decrease. Patient has been hypertensive on evaluation regimen has been changed. 04/22: Lantus increased for hyperglycemia and add amlodipine for better BP contr ol. Patient is on steroids. OT suctioned by RN with catheter in oral care kit and received copious amounts of secretions. Cr continues to decrease. Culture grew Pseudomonas and was changed in accordance to sensitivity. Kerr removed today after clearance from nephrology. 04/23: MRI of the brain was done and unremarkable. Will obtain reconsult to nephrology for further assistance as patient remains in profound encephalopathy despite improvement of blood sugar. Will repeat chest x-ray as patient does have significant congestion physical exam. Tube feeds still ongoing. Continue aspiration precautions. Continue antibiotics when completed for Pseudomonas management 04/24: Neurology input noted, patient unfortunately with no improvement mental status milton, continues with congestion, will defer with Telemarketing Fundraiser for lasix in the setting of renal failure. will give kayexlate for hyperkalemia, still moans and groans, mittens in place. 04/25: Patient currently intubated, on restraints for safety, Profund encephalopathy persist, although awake she is not following any commands, Call placed to [facility] to see if they will accept transfer for ENT evaluation, while CT neck was negative, it was degraded by motion and unable to determent why patient had this stridor, Racemic Epinephrine was given Gil is on ICU saturation, but will call back with an ENT to discuss case. Renal function mildly worse, continue to monitor. Per cardiology, no further arrhythmias noted since admission. Given short duration of atrial fibrillation, along with pt's age, renal fxn, and other co-morbidities,...will resume additional medical therapies for underlying severe multi-vessel CAD (bASA & Plavix). Pt has previously declined intervention of known lesions as per her Primary Personal Banking Officer. 04/26: Now with febrile illness, ?developing infection, start on emperic abx, check lactate level, blood cultures, continue management per Automobile Upholsterer, Monitor Leukocytosis, agree with Trach, family updated about denials in transfer request from outside hospitals. Acute metabolic encephalopathy-persist Acute hypoxic respiratory failure (extubated 04/20)- Re-intubated secondary to Stridor and paradoxical breathing First-degree heart block Resolved ileus versus mechanical obstruction Acute kidney injury with vasomotor nephropathy UTI, Pseudomonas Possible seizure activity Hyperkalemia Elevated TSH Mild rhabdomyolysis Hypertension Diabetes mellitus with hyperglycemia on admission CAD Chronic illness debilitymyopathy Obesity S/p antibiotic therapy x1, currently on abd for UTI -S/p D10 and D5W gtt, on TF -Accu-Cheks every 6, SSI, long acting insulin -S/p IV calcium gluconate, regular insulin, D50 -S/p transcutaneous pacing, intermittent demand pacer in place -Renal ultrasound pending -Blood pressure monitoring per protocol -IV hydralazine as needed -Avoid ACEi/ARB in setting of ROJELIO -Avoid AV arron blocking agents -Avoid nephrotoxic agents and renally dose medications -BB, add home antihtn regimen as needed -Iv abx -TSH 14.1, T4 4.1, T3 pending-started on levothyroxine -Provegil -s/p racemic epinephrine x2 -Steroids -BiPAP as needed -Trend CBC, BMP, CK DVT/GI prophylaxis: Heparin subcu, PPI, SCDs to bilateral lower extremities while in bed Disposition: IMCU The high probability of a clinically significant, sudden or life threatening deterioration of the [PULMONARY, CARDIAC, RENAL] system(s) required my full and direct attention, intervention and personal management. The aggregate critical care time was [35] minutes. This time is in addition to time spent performing reported procedures but includes the following: [X] Data Review and interpretation [X] Patient assessment and monitoring of vital signs [X] Documentation [X] Medication orders and management History Interval history: This is a 80-year-old female with HTN, DM, ME, breast CA s/p double mastectomy, TIA who presented with hypoglycemia, AMS who was admitted with SIRS, symptomatic bradycardia, acute metabolic encephalopathy, acute hypoxic respiratory failure, elevated TSH, hyperglycemia, hyponatremia, hypokalemia, ROJELIO and rhabdomyolysis. Patient seen and examined this morning remains of full ventilatory support, tracks in the room, tries to follow some commands but still with profound encephalopathy Hospitalist Physical - Physical exam Narrative exam: General appearance: Present: no acute distress, other lethargic. not following commands due to mental status change. ETT in place. - EENT Eyes: Present: PERRL, EOM intact, NG tube in place ENT: poor dentition - Neck Neck: Present: normal ROM - Respiratory Respiratory effort: normal Respiratory: bilateral: CTA, congested - Cardiovascular Rhythm: regular Heart Sounds: Present: S1 & S2. Absent: systolic murmur, diastolic murmur - Extremities Extremities: no ischemia, pulses intact, pulses symmetrical, normal temperature, normal color Extremity abnormal: edema Peripheral Pulses: within normal limits - Abdominal General gastrointestinal: soft, non-tender, non-distended - Integumentary Integumentary: Present: See full documentation per nursing skin assessment. Otherwise appropriate for age - Psychiatric Psychiatric: Unable to fully examine - Neurologic Neurologic: moves all extremities - Allied Health Allied health notes reviewed: nursing, RT, social work - Constitutional Vitals: Temp Pulse Resp BP Pulse Ox 100.0 F H 95 H 23 154/64 98 04/26/21 11:56 04/26/21 12:00 04/26/21 11:00 04/26/21 12:00 04/26/21 12:00 General appearance: Present: no acute distress, other (sedated) HEART Score - HEART Score Troponin: Troponin T 0.065 ng/mL (0.00-0.029) H 04/20/21 03:32 Results - Labs CBC & Chem 7: 04/26/21 09:30 04/26/21 09:30 Labs: Laboratory Last Values WBC 24.7 K/mm3 (4.5-11.0) H 04/26/21 09:30 RBC 3.32 M/mm3 (3.65-5.03) L 04/26/21 09:30 Hgb 10.3 gm/dl (10.1-14.3) 04/26/21 09:30 Hct 31.5 % (30.3-42.9) 04/26/21 09:30 MCV 95 fl (79-97) 04/26/21 09:30 MCH 31 pg (28-32) 04/26/21 09:30 MCHC 33 % (30-34) 04/26/21 09:30 RDW 14.9 % (13.2-15.2) 04/26/21 09:30 Plt Count 279 K/mm3 (140-440) 04/26/21 09:30 Lymph % (Auto) 12.8 % (13.4-35.0) L 04/15/21 17:20 Granite % (Auto) 4.1 % (0.0-7.3) 04/15/21 17:20 Eos % (Auto) 0.3 % (0.0-4.3) 04/15/21 17:20 Baso % (Auto) 0.4 % (0.0-1.8) 04/15/21 17:20 Lymph # (Auto) 1.4 K/mm3 (1.2-5.4) 04/15/21 17:20 Granite # (Auto) 0.5 K/mm3 (0.0-0.8) 04/15/21 17:20 Eos # (Auto) 0.0 K/mm3 (0.0-0.4) 04/15/21 17:20 Baso # (Auto) 0.0 K/mm3 (0.0-0.1) 04/15/21 17:20 Add Manual Diff Complete 04/16/21 05:02 Total Counted 100 04/16/21 05:02 Seg Neutrophils % 82.4 % (40.0-70.0) H 04/15/21 17:20 Seg Neuts % (Manual) 84.0 % (40.0-70.0) H 04/16/21 05:02 Band Neutrophils % 3.0 % 04/16/21 05:02 Lymphocytes % (Manual) 2.0 % (13.4-35.0) L 04/16/21 05:02 Monocytes % (Manual) 10.0 % (0.0-7.3) H 04/16/21 05:02 Metamyelocytes % 1.0 % 04/16/21 05:02 Nucleated RBC % Not Reportable 04/16/21 05:02 Seg Neutrophils # 9.3 K/mm3 (1.8-7.7) H 04/15/21 17:20 Seg Neutrophils # Man 17.8 K/mm3 (1.8-7.7) H 04/16/21 05:02 Band Neutrophils # 0.6 K/mm3 04/16/21 05:02 Lymphocytes # (Manual) 0.4 K/mm3 (1.2-5.4) L 04/16/21 05:02 Abs React Lymphs (Man) 0.0 K/mm3 04/16/21 05:02 Monocytes # (Manual) 2.1 K/mm3 (0.0-0.8) H 04/16/21 05:02 Eosinophils # (Manual) 0.0 K/mm3 (0.0-0.4) 04/16/21 05:02 Basophils # (Manual) 0.0 K/mm3 (0.0-0.1) 04/16/21 05:02 Metamyelocytes # 0.2 K/mm3 04/16/21 05:02 Myelocytes # 0.0 K/mm3 04/16/21 05:02 Promyelocytes # 0.0 K/mm3 04/16/21 05:02 Blast Cells # 0.0 K/mm3 04/16/21 05:02 WBC Morphology Not Reportable 04/16/21 05:02 Hypersegmented Neuts Not Reportable 04/16/21 05:02 Hyposegmented Neuts Not Reportable 04/16/21 05:02 Hypogranular Neuts Not Reportable 04/16/21 05:02 Smudge Cells Not Reportable 04/16/21 05:02 Toxic Granulation Not Reportable 04/16/21 05:02 Toxic Vacuolation Not Reportable 04/16/21 05:02 Dohle Bodies Not Reportable 04/16/21 05:02 Pelger-Huet Anomaly Not Reportable 04/16/21 05:02 Peterson Rods Not Reportable 04/16/21 05:02 Platelet Estimate Consistent w auto 04/16/21 05:02 Clumped Platelets Not Reportable 04/16/21 05:02 Plt Clumps, EDTA Not Reportable 04/16/21 05:02 Large Platelets Not Reportable 04/16/21 05:02 Giant Platelets Not Reportable 04/16/21 05:02 Platelet Satelliting Not Reportable 04/16/21 05:02 Plt Morphology Comment Not Reportable 04/16/21 05:02 RBC Morphology Not Reportable 04/16/21 05:02 Dimorphic RBCs Not Reportable 04/16/21 05:02 Polychromasia Not Reportable 04/16/21 05:02 Hypochromasia Not Reportable 04/16/21 05:02 Poikilocytosis Not Reportable 04/16/21 05:02 Anisocytosis Few 04/16/21 05:02 Microcytosis Not Reportable 04/16/21 05:02 Macrocytosis Not Reportable 04/16/21 05:02 Spherocytes Not Reportable 04/16/21 05:02 Pappenheimer Bodies Not Reportable 04/16/21 05:02 Sickle Cells Not Reportable 04/16/21 05:02 Target Cells Not Reportable 04/16/21 05:02 Tear Drop Cells Not Reportable 04/16/21 05:02 Ovalocytes Not Reportable 04/16/21 05:02 Helmet Cells Not Reportable 04/16/21 05:02 [place] Bodies Not Reportable 04/16/21 05:02 [place] Rings Not Reportable 04/16/21 05:02 Theo Cells Not Reportable 04/16/21 05:02 Bite Cells Not Reportable 04/16/21 05:02 Crenated Cell Not Reportable 04/16/21 05:02 Elliptocytes Not Reportable 04/16/21 05:02 Acanthocytes (Spur) Not Reportable 04/16/21 05:02 Rouleaux Not Reportable 04/16/21 05:02 Hemoglobin C Crystals Not Reportable 04/16/21 05:02 Schistocytes Not Reportable 04/16/21 05:02 Malaria parasites Not Reportable 04/16/21 05:02 James Bodies Not Reportable 04/16/21 05:02 Hem Pathologist Commnt No 04/16/21 05:02 PT 12.2 Sec. (12.2-14.9) 04/15/21 17:20 INR 0.91 (0.87-1.13) 04/15/21 17:20 APTT 31.8 Sec. (24.2-36.6) 04/15/21 17:20 ABG pH 7.529 (7.320-7.450) H 04/26/21 04:30 POC ABG pCO2 35.4 mmHg (32.0-48.0) 04/26/21 04:30 POC ABG pO2 66.1 mmHg (83-108) L 04/26/21 04:30 POC ABG HCO3 28.8 04/26/21 04:30 ABG O2 Saturation 93.4 (0-100) 04/26/21 04:30 POC ABG Base Excess 6.0 04/26/21 04:30 ABG Hemoglobin 11.2 (12.0-17.5) L 04/26/21 04:30 ABG Oxyhemoglobin 92.8 (94-98) L 04/26/21 04:30 ABG Methemoglobin 0.3 (0.0-1.5) 04/26/21 04:30 ABG Sodium 139.2 mmol/L (136.0-145.0) 04/26/21 04:30 ABG Potassium 3.6 mmol/L (3.40-4.50) 04/26/21 04:30 ABG Chloride 103.0 mmol/L (98-107) 04/26/21 04:30 ABG Glucose 216 mg/dL (65-95) H 04/26/21 04:30 Carboxyhemoglobin 0.3 (0.5-1.5) L 04/26/21 04:30 FiO2 % 30.0 04/26/21 04:30 Sodium 143 mmol/L (137-145) 04/26/21 09:30 Potassium 3.8 mmol/L (3.6-5.0) 04/26/21 09:30 Chloride 101.7 mmol/L (98-107) 04/26/21 09:30 Carbon Dioxide 28 mmol/L (22-30) 04/26/21 09:30 Anion Gap 17 mmol/L 04/26/21 09:30 BUN 82 mg/dL (7-17) H 04/26/21 09:30 Creatinine 2.7 mg/dL (0.6-1.2) H 04/26/21 09:30 Estimated GFR 20 ml/min 04/26/21 09:30 BUN/Creatinine Ratio 30 % 04/26/21 09:30 Glucose 238 mg/dL (65-100) H 04/26/21 09:30 POC Glucose 202 mg/dL (70-105) H 04/26/21 05:44 Lactic Acid 1.10 mmol/L (0.7-2.0) 04/26/21 09:30 Calcium 9.1 mg/dL (8.4-10.2) 04/26/21 09:30 Phosphorus 2.60 mg/dL (2.5-4.5) 04/22/21 08:00 Magnesium 2.10 mg/dL (1.7-2.3) 04/23/21 07:02 Total Bilirubin 0.70 mg/dL (0.1-1.2) 04/16/21 05:02 AST 65 units/L (5-40) H 04/16/21 05:02 ALT 31 units/L (7-56) 04/16/21 05:02 Alkaline Phosphatase 79 units/L (35-129) 04/16/21 05:02 Ammonia 46.0 umol/L (25-60) 04/15/21 17:20 Total Creatine Kinase 427 units/L (30-135) H 04/18/21 05:34 CK-MB (CK-2) 9.1 ng/mL (0.0-4.0) H 04/17/21 15:35 CK-MB (CK-2) Rel Index 1.4 (0-4) 04/17/21 15:35 Troponin T 0.065 ng/mL (0.00-0.029) H 04/20/21 03:32 NT-Pro-B Natriuret Pep 697.9 pg/mL (0-900) 04/15/21 17:20 Total Protein 6.3 g/dL (6.3-8.2) D 04/16/21 05:02 Albumin 3.8 g/dL (3.9-5) L 04/16/21 05:02 Albumin/Globulin Ratio 1.5 % 04/16/21 05:02 Triglycerides 103 mg/dL (2-149) 04/17/21 05:04 Cholesterol 122 mg/dL (50-199) 04/17/21 05:04 LDL Cholesterol Direct 55 mg/dL (50-130) 04/17/21 05:04 HDL Cholesterol 61 mg/dL (40-59) H 04/17/21 05:04 Cholesterol/HDL Ratio 2.00 % 04/17/21 05:04 Procalcitonin 0.20 ng/mL (<0.15) 04/16/21 19:01 TSH 14.190 mlU/mL (0.270-4.200) H 04/15/21 17:20 Thyroxine (T4) 4.1 ug/dL (4.0-12.0) 04/16/21 19:01 Free T3 Index 1.1 pg/mL (2.3-4.2) L 04/16/21 19:01 Arterial Blood Glucose 216 mg/dL (65-95) H 04/26/21 04:30 Arterial Blood Ionized Calcium 4.8 mg/dL (4.6-5.3) 04/26/21 04:30 Urine Color Yellow (Yellow) 04/18/21 09:11 Urine Turbidity Clear (Clear) 04/18/21 09:11 Urine pH 6.0 (5.0-7.0) 04/18/21 09:11 Ur Specific [place] 1.014 (1.003-1.030) 04/18/21 09:11 Urine Protein >500 mg/dL (Negative) 04/18/21 09:11 Urine Glucose (UA) Neg mg/dL (Negative) 04/18/21 09:11 Urine Ketones Neg mg/dL (Negative) 04/18/21 09:11 Urine Blood Sm (Negative) 04/18/21 09:11 Urine Nitrite Neg (Negative) 04/18/21 09:11 Urine Bilirubin Neg (Negative) 04/18/21 09:11 Urine Urobilinogen 2.0 mg/dL (<2.0) 04/18/21 09:11 Ur Leukocyte Esterase Lg (Negative) 04/18/21 09:11 Urine WBC (Auto) 34.0 /HPF (0.0-6.0) H 04/18/21 09:11 Urine RBC (Auto) 18.0 /HPF (0.0-6.0) 04/18/21 09:11 U Epithel Cells (Auto) < 1.0 /HPF (0-13.0) 04/16/21 00:09 Urine Bacteria (Auto) 1+ /HPF (Negative) 04/16/21 00:09 Urine Creatinine 24.4 mg/dL (0.1-20.0) H 04/16/21 00:12 Urine Sodium 97 mmol/L 04/16/21 00:12 Salicylates 4.1 mg/dL (2.8-20.0) 04/15/21 17:20 Acetaminophen 5.0 ug/mL (10.0-30.0) L 04/15/21 17:20 Plasma/Serum Alcohol 0.02 % (0-0.07) 04/15/21 17:20 Coronavirus (PCR) Negative (Negative) 04/16/21 Unknown Kerr/IV: Voiding Method Indwelling Catheter Active Medications - Current Medications Current Medications: Generic Name Dose Route Start Last Admin Trade Name Freq PRN Reason Stop Dose Admin Acetaminophen 650 mg 04/15/21 19:11 04/26/21 12:05 Acetaminophen 325 Mg Tab PO 650 mg Q6H PRN Administration Pain MILD(1-3)/Fever >100.5/SEXTON Albuterol/Ipratropium 1 ampul 04/24/21 14:00 04/26/21 07:38 Ipratropium/Albuterol Sulfate 3 Ml Ampul.Neb IH 1 ampul Q6HRT WOLFGANG Administration Amlodipine Besylate 10 mg 04/25/21 10:00 04/26/21 10:06 Amlodipine 10 Mg Tab PO 10 mg DAILY WOFLGANG Administration Lipase/Protease/Amylase 1 each 04/16/21 12:52 Lipase 10,500/Protease 25,000/Amylase 43,750 (Units) Dr Simpson FEEDTUBE PRN PRN For Clogged Feeding Tube Aspirin 81 mg 04/25/21 10:00 04/26/21 10:06 Aspirin 81 Mg Tab Chew PO 81 mg QDAY WOLFGANG Administration Bisacodyl 10 mg 04/17/21 11:01 04/17/21 13:46 Bisacodyl 10 Mg Rect Supp AL 10 mg QDAY PRN Administration Constipation Brimonidine Tartrate 1 drops 04/17/21 22:00 04/26/21 10:08 Brimonidine 0.15% Ophth Soln OU 1 drops BID WOLFGANG Administration Clopidogrel Bisulfate 75 mg 04/25/21 10:00 04/26/21 10:06 Clopidogrel 75 Mg Tab PO 75 mg QDAY WOLFGANG Administration Epinephrine 0.5 ml 04/21/21 12:56 Epinephrine Racemic 2.25% 0.5ml Nebu IH Q4HRT PRN Shortness Of Breath Famotidine 20 mg 04/17/21 10:00 04/26/21 10:06 Famotidine 20 Mg Tab PO 20 mg DAILY WOLFGANG Administration Fentanyl 50 mcg 04/24/21 13:03 Fentanyl 100 Mcg/2 Ml Inj IV Q10MIN PRN ANALGESIA Heparin Sodium (Porcine) 5,000 unit 04/15/21 22:00 04/26/21 10:06 Heparin 5,000 Unit/1 Ml Vial SUB-Q 5,000 unit Q12HR WOLFGANG Administration Hydralazine HCl 10 mg 04/16/21 18:00 04/24/21 05:25 Hydralazine 20 Mg/1 Ml Inj IV 10 mg Q4HR PRN Administration Hypertension Hydralazine HCl 100 mg 04/21/21 14:00 04/26/21 10:06 Hydralazine 100 Mg Tab PO 100 mg TID WOLFGANG Administration Hydrophilic Ointment 1 applic 04/15/21 17:24 Lip Therapy Vaseline TP Q2HR PRN Dry Lips Fentanyl Citrate 2,000 mcg in 100 mls @ 4.765 mls/hr 04/24/21 14:00 04/25/21 09:15 Fentanyl Drip Premix IV 0 mcg/kg/hr TITR WOLFGANG 0 mls/hr Titration Protocol 1 MCG/KG/HR Propofol 1,000 mg in 100 mls @ 2.859 mls/hr 04/24/21 14:00 04/25/21 09:10 Diprivan 10 Mg/Ml IV 0 mcg/kg/min TITR WOLFGANG 0 mls/hr Titration Protocol 5 MCG/KG/MIN Cefepime HCl 0.5 gm/ Sodium 100 mls @ 200 mls/hr 04/26/21 10:00 04/26/21 09:05 Chloride IV 200 mls/hr Q12HR WOLFGANG Administration Insulin Glargine 30 units 04/25/21 08:00 04/26/21 10:05 Insulin Glargine 100 Units/Ml SUB-Q 30 units QAMDIAB WOLFGANG Administration Insulin Human Lispro 0 unit 04/16/21 15:00 04/26/21 12:03 Insulin Lispro 100 Unit/Ml SUB-Q 4 unit Q6HR WOLFGANG Administration Protocol Latanoprost 1 drops 04/17/21 18:00 04/25/21 18:09 Latanoprost 0.005% Ophth Soln 2.5 Ml OU 1 drops QPM WOLFGANG Administration Levothyroxine Sodium 25 mcg 04/19/21 06:00 04/26/21 05:58 Levothyroxine 25 Mcg Tab PO 25 mcg DAILY@0600 WOLFGANG Administration Lorazepam 1 mg 04/24/21 11:32 Lorazepam 2 Mg/Ml Vial IV Q12HR PRN Agitation Metoprolol Tartrate 25 mg 04/19/21 10:00 04/26/21 10:06 Metoprolol Tartrate 25 Mg Tab PO 25 mg BID WOLFGANG Administration Multi-Ingred Cream/Lotion/Oil/Oint 1 applic 04/15/21 17:24 04/26/21 10:05 Mineral Oil/Petrolatum, White Ophth Oint 3.5 Gm OU 1 applic Q4HR PRN Administration Dry Eye(s) Pravastatin Sodium 20 mg 04/19/21 22:00 04/25/21 22:22 Pravastatin 20 Mg Tab PO 20 mg QHS WOLFGANG Administration Scopolamine 1 each 04/20/21 18:00 04/26/21 10:06 Scopolamine Transdermal Patch 72 Hr TD 1 each Q3D WOLFGANG Administration Simple Syrup 15 ml 04/16/21 12:52 Simple Syrup 15 Ml FEEDTUBE PRN PRN Hypoglycemia Simple Syrup 30 ml 04/16/21 12:52 Simple Syrup 15 Ml FEEDTUBE PRN PRN Hypoglycemia Sodium Bicarbonate 325 mg 04/16/21 12:52 Sodium Bicarbonate 325 Mg Tab FEEDTUBE PRN PRN For Clogged Feeding Tube Sodium Chloride 10 ml 04/15/21 22:00 04/26/21 10:08 Sodium Chloride 0.9% 10 Ml Flush Syringe IV 10 ml BID WOLFGANG Administration Sodium Chloride 10 ml 04/15/21 19:11 04/24/21 05:27 Sodium Chloride 0.9% 10 Ml Flush Syringe IV 10 ml PRN PRN Administration LINE FLUSH Tamsulosin HCl 0.4 mg 04/25/21 14:00 04/26/21 10:06 Tamsulosin 0.4 Mg Cap PO 0.4 mg QDAY WOLFGANG Administration Timolol Maleate 1 drops 04/19/21 10:00 04/26/21 10:07 Timolol 0.5% Ophth Soln 5 Ml OU 1 drops QDAY WOLFGANG Administration Nutrition/Malnutrition Assess - Dietary Evaluation Nutrition/Malnutrition Findings: Nutrition Notes Start: 04/16/21 12:31 Freq: Status: Active Protocol: Document 04/23/21 11:37 MAYE (Rec: 04/23/21 11:53 [facility] [id number]) Nutrition Notes Initial or Follow up Reassessment Current Diagnosis Acute Kidney Injury,Coronary Artery Disease,Diabetes, Hypertension Other Pertinent Diagnosis UTI, acute metabolic encephalopathy Current Diet TF - Glucerna 1.2 at 50ml/hr Labs/Tests BUN 57 Cr 2 BG 253 Pertinent Medications Lantus, Solumedrol, Scopolamine Height 5 ft 6 in Weight 95.3 kg [place] Body Weight (kg) 59.09 BMI 33.9 Weight Status Obese Subjective/Other Information Spoke with RN via phone at 11: 32. Pt extubated on 04/20 and is tolerating TF at goal rate; receives 50ml water flush q4h . Percent of energy/protein needs met: 100% energy 61% pro Burn Absent Trauma Absent #1 Nutrition Diagnosis Inadequate oral intake Diagnosis Progress(for reassessment Continues documentation) Is patient on ventilator? No Is Patient Ambulatory and/or Out of Bed No REE-([place]or-confined to bed) [phone] Kcal/Kg value to use for calculation 13 Approximate Energy Requirements Using 1239 kcal/Kg Calculation Used for Recommendations Kcal/kg Additional Notes Pro needs >2g/kg IBW: >118g/ day Fluid needs 1ml/kcal Nutrition Intervention Nutrition Support: Continue Glucerna 1.2 at 50ml/ hr with 50ml water flush q4h. Kcal 1,440 Protein (gm) 72 Fluid (mL) 966 Goal #1 TF tolerance Goal #2 TF to meet energy and pro needs as best possible Follow-Up By: 04/30/21 Additional Comments F/U: stable TF, wt
--- NOTE | 2021-04-26 14:09 | Progress Note ---
Assessment and Plan 1. Acute kidney injury: Likely vasomotor ROJELIO. ATN likely. Renal US negative for hydro. Baseline renal function is unknown. Monitor renal function. Non-oliguric. Now has hui catheter. Creatinine level gradually increasing. Avoid nephrotoxic agents. Meds dosage based on GFR. 2. FEN: Hyperkalemia, improved, monitor. Hyponatremia, improved. Monitor lytes and volume status. 3. Acute hypoxemic respiratory failure: S/p extubated, re-intubated 04/24. 4. Acute encephalopathy: Hypoglycemia. MRI brain negative. Followed by Neuro. 5. Pseudomonas UTI. 6. Hypertension. 7. DM type 2. 8. Mild rhabdomyolysis. 9. Mildly complex R renal cyst. Subjective: Patient was seen and examined at the bedside. Examination: General appearance: well-developed, appears stated age, intubated on vent HEENT: BRUCE, atraumatic Neck: trachea midline Respiratory: Coarse breath sounds heard Heart: S1S2, no murmur Abdomen: soft, obese, bowel sounds heard, NT Integumentary: no obvious rash Neurologic: lethargic, non-verbal, not following any command Ext: no edema noted : Hui catheter Subjective Date of service: 04/26/21 Principal diagnosis: Ac. resp failure; AMS; Hypoglycemia; ROJELIO; Hyperkalemia; DM II Objective - Vital Signs Vital signs: Vital Signs - 12hr 04/26/21 04/26/21 04/26/21 02:31 03:01 03:31 Temperature Pulse Rate 99 H 98 H 100 H Pulse Rate [ Bilateral] Pulse Rate [ From Monitor] Respiratory 17 19 19 Rate Respiratory Rate [Bilateral ] Blood Pressure 116/47 116/47 113/55 O2 Sat by Pulse 96 97 96 Oximetry 04/26/21 04/26/21 04/26/21 04:00 04:01 04:29 Temperature Pulse Rate 76 96 H 98 H Pulse Rate [ Bilateral] Pulse Rate [ 96 H From Monitor] Respiratory 20 Rate Respiratory Rate [Bilateral ] Blood Pressure 113/55 153/79 O2 Sat by Pulse 98 97 97 Oximetry 04/26/21 04/26/21 04/26/21 04:31 05:01 05:30 Temperature Pulse Rate 112 H 99 H 98 H Pulse Rate [ Bilateral] Pulse Rate [ From Monitor] Respiratory 23 19 17 Rate Respiratory Rate [Bilateral ] Blood Pressure 136/65 153/79 142/95 O2 Sat by Pulse 97 97 97 Oximetry 04/26/21 04/26/21 04/26/21 06:01 06:31 07:00 Temperature 100.4 F H Pulse Rate 108 H 104 H 100 H Pulse Rate [ Bilateral] Pulse Rate [ From Monitor] Respiratory 21 21 21 Rate Respiratory Rate [Bilateral ] Blood Pressure 137/102 143/66 136/94 O2 Sat by Pulse 97 98 98 Oximetry 04/26/21 04/26/21 04/26/21 07:31 07:38 07:41 Temperature Pulse Rate 95 H 97 H Pulse Rate [ 104 H Bilateral] Pulse Rate [ From Monitor] Respiratory 17 Rate Respiratory 20 Rate [Bilateral ] Blood Pressure 136/58 136/58 O2 Sat by Pulse 97 97 Oximetry 04/26/21 04/26/21 04/26/21 08:00 08:01 08:31 Temperature Pulse Rate 74 86 94 H Pulse Rate [ Bilateral] Pulse Rate [ 96 H From Monitor] Respiratory 17 20 Rate Respiratory Rate [Bilateral ] Blood Pressure 107/43 127/61 O2 Sat by Pulse 98 94 98 Oximetry 04/26/21 04/26/21 04/26/21 09:01 09:31 10:00 Temperature Pulse Rate 98 H 84 97 H Pulse Rate [ Bilateral] Pulse Rate [ From Monitor] Respiratory 17 11 L 25 H Rate Respiratory Rate [Bilateral ] Blood Pressure 125/54 132/48 146/70 O2 Sat by Pulse 97 96 98 Oximetry 04/26/21 04/26/21 04/26/21 10:30 11:00 11:30 Temperature Pulse Rate 90 96 H 91 H Pulse Rate [ Bilateral] Pulse Rate [ From Monitor] Respiratory 19 23 23 Rate Respiratory Rate [Bilateral ] Blood Pressure 118/54 128/68 124/68 O2 Sat by Pulse 98 98 98 Oximetry 04/26/21 04/26/21 04/26/21 11:56 12:00 12:01 Temperature 100.0 F H Pulse Rate 78 100 H Pulse Rate [ Bilateral] Pulse Rate [ 96 H From Monitor] Respiratory 15 Rate Respiratory Rate [Bilateral ] Blood Pressure 154/64 154/64 O2 Sat by Pulse 98 98 Oximetry 04/26/21 04/26/21 04/26/21 12:31 13:00 13:30 Temperature Pulse Rate 93 H 86 85 Pulse Rate [ Bilateral] Pulse Rate [ From Monitor] Respiratory 24 13 22 Rate Respiratory Rate [Bilateral ] Blood Pressure 118/62 126/49 126/49 O2 Sat by Pulse 99 97 98 Oximetry 04/26/21 14:00 Temperature Pulse Rate 86 Pulse Rate [ Bilateral] Pulse Rate [ From Monitor] Respiratory 20 Rate Respiratory Rate [Bilateral ] Blood Pressure 124/52 O2 Sat by Pulse 99 Oximetry - Lab 04/26/21 09:30 04/26/21 09:30 Most recent lab results ABG pH 7.529 (7.320-7.450) H 04/26/21 04:30 ABG O2 Saturation 93.4 (0-100) 04/26/21 04:30 Calcium 9.1 mg/dL (8.4-10.2) 04/26/21 09:30 Phosphorus 2.60 mg/dL (2.5-4.5) 04/22/21 08:00 Magnesium 2.10 mg/dL (1.7-2.3) 04/23/21 07:02 Urine Creatinine 24.4 mg/dL (0.1-20.0) H 04/16/21 00:12 Urine Sodium 97 mmol/L 04/16/21 00:12 Medications & Allergies - Medications Allergies/Adverse Reactions: Allergies No Known Allergies Allergy (Unverified 04/15/21 17:41) Home Medications: Home Medications Medication Instructions Recorded Confirmed Last Taken Type Betaxolol HCl [Betoptic S 0.25% 1 drop OU BID 04/16/21 04/16/21 Unknown History SUSP] Bimatoprost [Lumigan 0.01%] 1 drop OU QPM 04/16/21 04/16/21 Unknown History Brimonidine Tartrate [Brimonidine 5 ml OU BID 04/16/21 04/16/21 Unknown History Tartrate 0.2%] Furosemide [Lasix TAB] 40 mg PO QDAY 04/16/21 04/16/21 Unknown History Gabapentin [Neurontin] 300 mg PO Q8HR 04/16/21 04/16/21 Unknown History HYDROcodone/APAP 10-325 [[place] 1 each PO Q6HR PRN 04/16/21 04/16/21 Unknown History 10/325] Hydralazine HCl 50 mg PO Q4HR 04/16/21 04/16/21 Unknown History Insulin Aspart Prot/Insuln Asp 52 units SQ HS 04/16/21 04/16/21 Unknown History [Novolog Mix 70-30 Flexpen] Metoprolol [Lopressor] 25 mg PO BID 04/16/21 04/16/21 Unknown History Pravastatin [Pravachol] 20 mg PO QHS 04/16/21 04/16/21 Unknown History Promethazine [Phenergan] 25 mg PO Q6HR 04/16/21 04/16/21 Unknown History allopurinoL [Zyloprim] 150 mg PO QDAY 04/16/21 04/16/21 Unknown History Active Medications: Generic Name Dose Route Start Last Admin Trade Name Freq PRN Reason Stop Dose Admin Acetaminophen 650 mg 04/15/21 19:11 04/26/21 12:05 Acetaminophen 325 Mg Tab PO 650 mg Q6H PRN Administration Pain MILD(1-3)/Fever >100.5/SEXTON Albuterol/Ipratropium 1 ampul 04/24/21 14:00 04/26/21 07:38 Ipratropium/Albuterol Sulfate 3 Ml Ampul.Neb IH 1 ampul Q6HRT WOLFGANG Administration Amlodipine Besylate 10 mg 04/25/21 10:00 04/26/21 10:06 Amlodipine 10 Mg Tab PO 10 mg DAILY WOLFGANG Administration Lipase/Protease/Amylase 1 each 04/16/21 12:52 Lipase 10,500/Protease 25,000/Amylase 43,750 (Units) Dr Calvin PURDYTJAQUELIN PRN PRN For Clogged Feeding Tube Aspirin 81 mg 04/25/21 10:00 04/26/21 10:06 Aspirin 81 Mg Tab Chew PO 81 mg QDAY WOLFGANG Administration Bisacodyl 10 mg 04/17/21 11:01 04/17/21 13:46 Bisacodyl 10 Mg Rect Supp WI 10 mg QDAY PRN Administration Constipation Brimonidine Tartrate 1 drops 04/17/21 22:00 04/26/21 10:08 Brimonidine 0.15% Ophth Soln OU 1 drops BID WOLFGANG Administration Clopidogrel Bisulfate 75 mg 04/25/21 10:00 04/26/21 10:06 Clopidogrel 75 Mg Tab PO 75 mg QDAY WOLFGANG Administration Epinephrine 0.5 ml 04/21/21 12:56 Epinephrine Racemic 2.25% 0.5ml Nebu IH Q4HRT PRN Shortness Of Breath Famotidine 20 mg 04/17/21 10:00 04/26/21 10:06 Famotidine 20 Mg Tab PO 20 mg DAILY WOLFGANG Administration Fentanyl 50 mcg 04/24/21 13:03 Fentanyl 100 Mcg/2 Ml Inj IV Q10MIN PRN ANALGESIA Heparin Sodium (Porcine) 5,000 unit 04/15/21 22:00 04/26/21 10:06 Heparin 5,000 Unit/1 Ml Vial SUB-Q 5,000 unit Q12HR WOLFGANG Administration Hydralazine HCl 10 mg 04/16/21 18:00 04/24/21 05:25 Hydralazine 20 Mg/1 Ml Inj IV 10 mg Q4HR PRN Administration Hypertension Hydralazine HCl 100 mg 04/21/21 14:00 04/26/21 10:06 Hydralazine 100 Mg Tab PO 100 mg TID WOLFGANG Administration Hydrophilic Ointment 1 applic 04/15/21 17:24 Lip Therapy Vaseline TP Q2HR PRN Dry Lips Fentanyl Citrate 2,000 mcg in 100 mls @ 4.765 mls/hr 04/24/21 14:00 04/25/21 09:15 Fentanyl Drip Premix IV 0 mcg/kg/hr TITR WOLFGANG 0 mls/hr Titration Protocol 1 MCG/KG/HR Propofol 1,000 mg in 100 mls @ 2.859 mls/hr 04/24/21 14:00 04/25/21 09:10 Diprivan 10 Mg/Ml IV 0 mcg/kg/min TITR WOLFGANG 0 mls/hr Titration Protocol 5 MCG/KG/MIN Cefepime HCl 0.5 gm/ Sodium 100 mls @ 200 mls/hr 04/26/21 10:00 04/26/21 09:05 Chloride IV 200 mls/hr Q12HR WOLFGANG Administration Insulin Glargine 30 units 04/25/21 08:00 04/26/21 10:05 Insulin Glargine 100 Units/Ml SUB-Q 30 units QAMDIAB WOLFGANG Administration Insulin Human Lispro 0 unit 04/16/21 15:00 04/26/21 12:03 Insulin Lispro 100 Unit/Ml SUB-Q 4 unit Q6HR WOLFGANG Administration Protocol Latanoprost 1 drops 04/17/21 18:00 04/25/21 18:09 Latanoprost 0.005% Ophth Soln 2.5 Ml OU 1 drops QPM WOLFGANG Administration Levothyroxine Sodium 25 mcg 04/19/21 06:00 04/26/21 05:58 Levothyroxine 25 Mcg Tab PO 25 mcg DAILY@0600 WOLFGANG Administration Lorazepam 1 mg 04/24/21 11:32 Lorazepam 2 Mg/Ml Vial IV Q12HR PRN Agitation Metoprolol Tartrate 25 mg 04/19/21 10:00 04/26/21 10:06 Metoprolol Tartrate 25 Mg Tab PO 25 mg BID WOLFGANG Administration Multi-Ingred Cream/Lotion/Oil/Oint 1 applic 04/15/21 17:24 04/26/21 10:05 Mineral Oil/Petrolatum, White Ophth Oint 3.5 Gm OU 1 applic Q4HR PRN Administration Dry Eye(s) Pravastatin Sodium 20 mg 04/19/21 22:00 04/25/21 22:22 Pravastatin 20 Mg Tab PO 20 mg QHS WOLFGANG Administration Scopolamine 1 each 04/20/21 18:00 04/26/21 10:06 Scopolamine Transdermal Patch 72 Hr TD 1 each Q3D WOLFGANG Administration Simple Syrup 15 ml 04/16/21 12:52 Simple Syrup 15 Ml FEEDTUBE PRN PRN Hypoglycemia Simple Syrup 30 ml 04/16/21 12:52 Simple Syrup 15 Ml FEEDTUBE PRN PRN Hypoglycemia Sodium Bicarbonate 325 mg 04/16/21 12:52 Sodium Bicarbonate 325 Mg Tab FEEDTUBE PRN PRN For Clogged Feeding Tube Sodium Chloride 10 ml 04/15/21 22:00 04/26/21 10:08 Sodium Chloride 0.9% 10 Ml Flush Syringe IV 10 ml BID WOLFGANG Administration Sodium Chloride 10 ml 04/15/21 19:11 04/24/21 05:27 Sodium Chloride 0.9% 10 Ml Flush Syringe IV 10 ml PRN PRN Administration LINE FLUSH Tamsulosin HCl 0.4 mg 04/25/21 14:00 04/26/21 10:06 Tamsulosin 0.4 Mg Cap PO 0.4 mg QDAY WOLFGANG Administration Timolol Maleate 1 drops 04/19/21 10:00 04/26/21 10:07 Timolol 0.5% Ophth Soln 5 Ml OU 1 drops QDAY WOLFGANG Administration
[2021-04-26] MEDS: LATANOPROST 0.005% OPHTH SOLN 2.5 ML OU SCH (17:54)
[2021-04-26] MEDS: PRAVASTATIN 20 MG TAB PO SCH (21:19)
[2021-04-27] MEDS: INSULIN LISPRO 100 UNIT/ML SUB-Q SCH ×4 (00:38→18:05)
[2021-04-27] MEDS: IPRATROPIUM/ALBUTEROL SULFATE 3 ML AMPUL.NEB IH SCH ×4 (02:10→20:13)
[2021-04-27] MEDS: LEVOTHYROXINE 25 MCG TAB PO SCH (06:05)
[2021-04-27] MEDS: ACETAMINOPHEN 325 MG TAB PO PRN ×2 (06:23→12:13)
[2021-04-27] MEDS: hydrALAZINE 100 MG TAB PO SCH ×3 (08:01→21:05)
[2021-04-27] MEDS: INSULIN GLARGINE 100 UNITS/ML SUB-Q SCH (08:01)
[2021-04-27 08:16] LABS: Hematocrit 32.3 % (30.3-42.9); Hemoglobin 10.3 gm/dl (10.1-14.3); Mean Corpuscular HGB Conc 32 % (30-34); Mean Corpuscular Volume 97 fl (79-97); Platelet Count 290 K/mm3 (140-440); Red Blood Count 3.32 M/mm3 (3.65-5.03); Red Cell Distribution Width 15.5 % (13.2-15.2)
[2021-04-27 08:30] LABS: Calcium 9.1 mg/dL (8.4-10.2)
[2021-04-27] MEDS: METOPROLOL TARTRATE 25 MG TAB PO SCH ×2 (09:14→21:05)
[2021-04-27] MEDS: FAMOTIDINE 20 MG TAB PO SCH (09:15)
[2021-04-27] MEDS: TAMSULOSIN 0.4 MG CAP PO SCH (09:15)
[2021-04-27] MEDS: amLODIPine 10 MG TAB PO SCH (09:15)
[2021-04-27] MEDS: HEPARIN 5,000 UNIT/1 ML VIAL SUB-Q SCH ×2 (09:15→21:16)
[2021-04-27] MEDS: ASPIRIN 81 MG TAB CHEW PO SCH (09:15)
[2021-04-27] MEDS: CLOPIDOGREL 75 MG TAB PO SCH (09:15)
[2021-04-27] MEDS: CEFEPIME/NS 2 GM/100 ML 2 GM/100 ML BAG IV SCH (09:16)
[2021-04-27] MEDS: TIMOLOL 0.5% OPHTH SOLN 5 ML OU SCH (09:17)
[2021-04-27] MEDS: BRIMONIDINE 0.15% OPHTH SOLN OU SCH ×2 (09:17→21:06)
--- NOTE | 2021-04-27 09:20 | Progress Note ---
Assessment and Plan Assessment and plan: This is a 80-year-old female with hypertension, diabetes mellitus, ME, breast cancer s/p double mastectomy, and a TIA who presented with hypoglycemia and altered mental status on 04/15 via EMS. Per EMS patient was unresponsive on their arrival and her blood glucose was 38 and she received 1 amp of dextrose patient continued to be unresponsive and only moaned with her eyes deviating to the left. Work-up in the emergency department revealed SIRS, symptomatic bradycardia, acute metabolic encephalopathy, acute hypoxic respiratory failure, elevated TSH, hyperglycemia, hyponatremia, hyperkalemia, acute kidney injury with ATN, and rhabdomyolysis 04/16: Neurology consulted, COVID-19 PCR negative, D10 drip decreased and eventually discontinued by [facility] and started on D5W for 1 L. Hydralazine as needed. Patient had hyper kalemia today and was treated with D50, insulin and Kayexalate. This time examination patient is on assist control tidal volume 450, rate of 16, PEEP of 6 and 25% FiO2. 04/17: Patient started on low-dose beta-angel per cardiology, CPAP trial again per [facility], BUN/creatinine holding steady and hypochloremia/hyponatremia slightly improved and hypokalemia has resolved. This morning a KUB was obtained which was concerning for ileus versus mechanical obstruction and surgery was c onsulted. Patient was made n.p.o. and NG tube placed to wall suction. Patient was given suppository. Per RN patient did not have a BM even though she was given Kayexalate yesterday. Will obtain a KUB in the a.m. Neurology was consulted yesterday and will await further recommendations. Nephew updated at bedside today, Carlos Romero. -[facility], cardiology, nephrology, neurology, nutrition consulted, appreciate recommendations -04/15 CT head shows age-related atrophic change, chronic small vessel ischemic change, no CT evidence of acute large vessel territory ischemic injury, hemorrhage or mass -04/15 echocardiogram shows left ventricular systolic function borderline, LVEF 45 to 50%, mild concentric LVH, paradoxical septal motion consistent with left bundle branch block with no clot identified in the left ventricle, calcified aortic valve without regurgitation or stenosis, trace MR, trace TR, no NV, RVSP is 24 mmHg -04/17 KUB shows gas-filled and dilated loops of small bowel noted over the upper abdomen largest measuring 5 cm concerning for ileus versus mechanical obstruction -04/18 KUB shows interval resolution of previously seen small bowel dilation -04/18 EEG pending 04/18: Neurology has ordered EEG/MRI B, CCM continues to wean MV. Persistent low grade temperature so we will obtain BCx2/UA. Patient has improving leukocytosis, hyponatremia, renal function studies and hypochloremia. She has hypokalemia today which is being repleted. Surgery has signed off today and has okayed r esumption of TF. [facility] will trial CPAP for longer today and plans to attempt extubation in AM. Family has requested transfer to [facility] and Dr. Gordon will attempt to contact transfer center. I updated her nephew, Carlos Romero over the phone today abouyt current events and update on transfer ([facility] will conduct a utilization review) 04/19: This morning patient is on CPAP trial at the time of examination, noted to be hypertensive and metoprolol increased to home dose, started on synthroid by [facility], lantus started re hyperglycemia, MRI completed with no acute findings. Severe hypokalemia (repleted and Mg pending). [facility] will contact CPAP trial again today with possible trial extubation tomorrow. 04/19 MRI brain shows no restricted diffusion, no hemorrhage,, no radiation, findings consistent with chronic microvascular disease, small bilateral mastoid effusions, mucosal thickening throughout the paranasal sinuses seen within the maxillary sinuses 04/20: Patient's leukocytosis and kidney function tests continue to improve. Patient is hypertensive overnight we will restart home hydralazine. [facility] plans to extubate patient today. Family is attempting to transfer to another facility. EEG pending, RT will atmept to contact geodetic surveyor technologist. Urine culture grew gram negative rods. Increase in lantus 04/21: Increase in Lantus, repleted phos. Patient has started this afternoon and was given racemic epinephrine and started on steroids. Patient will have BiPAP as needed. We will recheck BMP in the a.m. renal function studies continues to decrease. Patient has been hypertensive on evaluation regimen has been changed. 04/22: Lantus increased for hyperglycemia and add amlodipine for better BP contr ol. Patient is on steroids. OT suctioned by RN with catheter in oral care kit and received copious amounts of secretions. Cr continues to decrease. Culture grew Pseudomonas and was changed in accordance to sensitivity. Kerr removed today after clearance from nephrology. 04/23: MRI of the brain was done and unremarkable. Will obtain reconsult to nephrology for further assistance as patient remains in profound encephalopathy despite improvement of blood sugar. Will repeat chest x-ray as patient does have significant congestion physical exam. Tube feeds still ongoing. Continue aspiration precautions. Continue antibiotics when completed for Pseudomonas management 04/24: Neurology input noted, patient unfortunately with no improvement mental status milton, continues with congestion, will defer with [facility] for lasix in the setting of renal failure. will give kayexlate for hyperkalemia, still moans and groans, mittens in place. 04/25: Patient currently intubated, on restraints for safety, Profund encephalopathy persist, although awake she is not following any commands, Call placed to [facility] to see if they will accept transfer for ENT evaluation, while CT neck was negative, it was degraded by motion and unable to determent why patient had this stridor, Racemic Epinephrine was given [facility] is on ICU saturation, but will call back with an ENT to discuss case. Renal function mildly worse, continue to monitor. Per cardiology, no further arrhythmias noted since admission. Given short duration of atrial fibrillation, along with pt's age, renal fxn, and other co-morbidities,...will resume additional medical therapies for underlying severe multi-vessel CAD (bASA & Plavix). Pt has previously declined intervention of known lesions as per her Primary Manufacture Specialist. 04/26: Now with febrile illness, ?developing infection, start on emperic abx, check lactate level, blood cultures, continue management per Tobacco Prevention Health Educator, Monitor Leukocytosis, agree with Trach, family updated about denials in transfer request from outside hospitals. 04/28: WBC improving some, still with fever despite antibotics, ID consulted. CXR clear, continue current management, Trach will be planned if ok with family. Blood sugar remains elevated, will adjust insulin LANTUS to 40 units. Patient had previously completed Cefepime. Mental status remains unchanged, still moves upper ext. continue restraints Acute metabolic encephalopathy-persist Acute hypoxic respiratory failure (extubated 04/20)- Re-intubated secondary to Stridor and paradoxical breathing First-degree heart block Resolved ileus versus mechanical obstruction Acute kidney injury with vasomotor nephropathy UTI, Pseudomonas Possible seizure activity Hyperkalemia Elevated TSH Mild rhabdomyolysis Hypertension Diabetes mellitus with hyperglycemia on admission CAD Chronic illness debilitymyopathy Obesity S/p antibiotic therapy x1, currently on abd for UTI -S/p D10 and D5W gtt, on TF -Accu-Cheks every 6, SSI, long acting insulin -S/p IV calcium gluconate, regular insulin, D50 -S/p transcutaneous pacing, intermittent demand pacer in place -Renal ultrasound pending -Blood pressure monitoring per protocol -IV hydralazine as needed -Avoid ACEi/ARB in setting of ROJELIO -Avoid AV arron blocking agents -Avoid nephrotoxic agents and renally dose medications -BB, add home antihtn regimen as needed -Iv abx -TSH 14.1, T4 4.1, T3 pending-started on levothyroxine -Provegil -s/p racemic epinephrine x2 -Steroids -BiPAP as needed -Trend CBC, BMP, CK DVT/GI prophylaxis: Heparin subcu, PPI, SCDs to bilateral lower extremities while in bed Disposition: IMCU The high probability of a clinically significant, sudden or life threatening deterioration of the [PULMONARY, CARDIAC, RENAL] system(s) required my full and direct attention, intervention and personal management. The aggregate critical care time was [35] minutes. This time is in addition to time spent performing reported procedures but includes the following: [X] Data Review and interpretation [X] Patient assessment and monitoring of vital signs [X] Documentation [X] Medication orders and management History Interval history: This is a 80-year-old female with HTN, DM, ME, breast CA s/p double mastectomy, TIA who presented with hypoglycemia, AMS who was admitted with SIRS, symptomatic bradycardia, acute metabolic encephalopathy, acute hypoxic respiratory failure, elevated TSH, hyperglycemia, hyponatremia, hypokalemia, ROJELIO and rhabdomyolysis. Patient seen and examined this morning remains of full ventilatory support, tracks in the room, tries to follow some commands but still with profound encephalopathy Hospitalist Physical - Physical exam Narrative exam: General appearance: Present: no acute distress, other lethargic. not following commands due to mental status change. ETT in place. - EENT Eyes: Present: PERRL, EOM intact, NG tube in place ENT: poor dentition - Neck Neck: Present: normal ROM - Respiratory Respiratory effort: normal Respiratory: bilateral: CTA, congested - Cardiovascular Rhythm: regular Heart Sounds: Present: S1 & S2. Absent: systolic murmur, diastolic murmur - Extremities Extremities: no ischemia, pulses intact, pulses symmetrical, normal temperature, normal color Extremity abnormal: edema Peripheral Pulses: within normal limits - Abdominal General gastrointestinal: soft, non-tender, non-distended - Integumentary Integumentary: Present: See full documentation per nursing skin assessment. Otherwise appropriate for age - Psychiatric Psychiatric: Unable to fully examine - Neurologic Neurologic: moves all extremities - Allied Health Allied health notes reviewed: nursing, RT, social work - Constitutional Vitals: Temp Pulse Resp BP Pulse Ox 101 F H 91 H 32 H 123/60 100 04/27/21 03:13 04/27/21 08:30 04/27/21 08:30 04/27/21 08:30 04/27/21 08:30 General appearance: Present: no acute distress, other (sedated) HEART Score - HEART Score Troponin: Troponin T 0.065 ng/mL (0.00-0.029) H 04/20/21 03:32 Results - Labs CBC & Chem 7: 04/27/21 07:52 04/27/21 07:52 Labs: Laboratory Last Values WBC 23.0 K/mm3 (4.5-11.0) H 04/27/21 07:52 RBC 3.32 M/mm3 (3.65-5.03) L 04/27/21 07:52 Hgb 10.3 gm/dl (10.1-14.3) 04/27/21 07:52 Hct 32.3 % (30.3-42.9) 04/27/21 07:52 MCV 97 fl (79-97) 04/27/21 07:52 MCH 31 pg (28-32) 04/27/21 07:52 MCHC 32 % (30-34) 04/27/21 07:52 RDW 15.5 % (13.2-15.2) H 04/27/21 07:52 Plt Count 290 K/mm3 (140-440) 04/27/21 07:52 Lymph % (Auto) 12.8 % (13.4-35.0) L 04/15/21 17:20 Hood % (Auto) 4.1 % (0.0-7.3) 04/15/21 17:20 Eos % (Auto) 0.3 % (0.0-4.3) 04/15/21 17:20 Baso % (Auto) 0.4 % (0.0-1.8) 04/15/21 17:20 Lymph # (Auto) 1.4 K/mm3 (1.2-5.4) 04/15/21 17:20 Hood # (Auto) 0.5 K/mm3 (0.0-0.8) 04/15/21 17:20 Eos # (Auto) 0.0 K/mm3 (0.0-0.4) 04/15/21 17:20 Baso # (Auto) 0.0 K/mm3 (0.0-0.1) 04/15/21 17:20 Add Manual Diff Complete 04/16/21 05:02 Total Counted 100 04/16/21 05:02 Seg Neutrophils % 82.4 % (40.0-70.0) H 04/15/21 17:20 Seg Neuts % (Manual) 84.0 % (40.0-70.0) H 04/16/21 05:02 Band Neutrophils % 3.0 % 04/16/21 05:02 Lymphocytes % (Manual) 2.0 % (13.4-35.0) L 04/16/21 05:02 Monocytes % (Manual) 10.0 % (0.0-7.3) H 04/16/21 05:02 Metamyelocytes % 1.0 % 04/16/21 05:02 Nucleated RBC % Not Reportable 04/16/21 05:02 Seg Neutrophils # 9.3 K/mm3 (1.8-7.7) H 04/15/21 17:20 Seg Neutrophils # Man 17.8 K/mm3 (1.8-7.7) H 04/16/21 05:02 Band Neutrophils # 0.6 K/mm3 04/16/21 05:02 Lymphocytes # (Manual) 0.4 K/mm3 (1.2-5.4) L 04/16/21 05:02 Abs React Lymphs (Man) 0.0 K/mm3 04/16/21 05:02 Monocytes # (Manual) 2.1 K/mm3 (0.0-0.8) H 04/16/21 05:02 Eosinophils # (Manual) 0.0 K/mm3 (0.0-0.4) 04/16/21 05:02 Basophils # (Manual) 0.0 K/mm3 (0.0-0.1) 04/16/21 05:02 Metamyelocytes # 0.2 K/mm3 04/16/21 05:02 Myelocytes # 0.0 K/mm3 04/16/21 05:02 Promyelocytes # 0.0 K/mm3 04/16/21 05:02 Blast Cells # 0.0 K/mm3 04/16/21 05:02 WBC Morphology Not Reportable 04/16/21 05:02 Hypersegmented Neuts Not Reportable 04/16/21 05:02 Hyposegmented Neuts Not Reportable 04/16/21 05:02 Hypogranular Neuts Not Reportable 04/16/21 05:02 Smudge Cells Not Reportable 04/16/21 05:02 Toxic Granulation Not Reportable 04/16/21 05:02 Toxic Vacuolation Not Reportable 04/16/21 05:02 Dohle Bodies Not Reportable 04/16/21 05:02 Pelger-Huet Anomaly Not Reportable 04/16/21 05:02 Peterson Rods Not Reportable 04/16/21 05:02 Platelet Estimate Consistent w auto 04/16/21 05:02 Clumped Platelets Not Reportable 04/16/21 05:02 Plt Clumps, EDTA Not Reportable 04/16/21 05:02 Large Platelets Not Reportable 04/16/21 05:02 Giant Platelets Not Reportable 04/16/21 05:02 Platelet Satelliting Not Reportable 04/16/21 05:02 Plt Morphology Comment Not Reportable 04/16/21 05:02 RBC Morphology Not Reportable 04/16/21 05:02 Dimorphic RBCs Not Reportable 04/16/21 05:02 Polychromasia Not Reportable 04/16/21 05:02 Hypochromasia Not Reportable 04/16/21 05:02 Poikilocytosis Not Reportable 04/16/21 05:02 Anisocytosis Few 04/16/21 05:02 Microcytosis Not Reportable 04/16/21 05:02 Macrocytosis Not Reportable 04/16/21 05:02 Spherocytes Not Reportable 04/16/21 05:02 Pappenheimer Bodies Not Reportable 04/16/21 05:02 Sickle Cells Not Reportable 04/16/21 05:02 Target Cells Not Reportable 04/16/21 05:02 Tear Drop Cells Not Reportable 04/16/21 05:02 Ovalocytes Not Reportable 04/16/21 05:02 Helmet Cells Not Reportable 04/16/21 05:02 [place] Bodies Not Reportable 04/16/21 05:02 Jerome Rings Not Reportable 04/16/21 05:02 Theo Cells Not Reportable 04/16/21 05:02 Bite Cells Not Reportable 04/16/21 05:02 Crenated Cell Not Reportable 04/16/21 05:02 Elliptocytes Not Reportable 04/16/21 05:02 Acanthocytes (Spur) Not Reportable 04/16/21 05:02 Rouleaux Not Reportable 04/16/21 05:02 Hemoglobin C Crystals Not Reportable 04/16/21 05:02 Schistocytes Not Reportable 04/16/21 05:02 Malaria parasites Not Reportable 04/16/21 05:02 James Bodies Not Reportable 04/16/21 05:02 Hem Pathologist Commnt No 04/16/21 05:02 PT 12.2 Sec. (12.2-14.9) 04/15/21 17:20 INR 0.91 (0.87-1.13) 04/15/21 17:20 APTT 31.8 Sec. (24.2-36.6) 04/15/21 17:20 ABG pH 7.549 (7.320-7.450) H 04/27/21 04:23 POC ABG pCO2 30.0 mmHg (32.0-48.0) L 04/27/21 04:23 POC ABG pO2 64.9 mmHg (83-108) L 04/27/21 04:23 POC ABG HCO3 25.6 04/27/21 04:23 ABG O2 Saturation 93.9 (0-100) 04/27/21 04:23 POC ABG Base Excess 3.6 04/27/21 04:23 ABG Hemoglobin 11 (12.0-17.5) L 04/27/21 04:23 ABG Oxyhemoglobin 93.3 (94-98) L 04/27/21 04:23 ABG Methemoglobin 0.3 (0.0-1.5) 04/27/21 04:23 ABG Sodium 138.9 mmol/L (136.0-145.0) 04/27/21 04:23 ABG Potassium 3.5 mmol/L (3.40-4.50) 04/27/21 04:23 ABG Chloride 106.0 mmol/L (98-107) 04/27/21 04:23 ABG Glucose 325 mg/dL (65-95) H 04/27/21 04:23 Carboxyhemoglobin 0.3 (0.5-1.5) L 04/27/21 04:23 FiO2 % 30 04/27/21 04:23 Sodium 141 mmol/L (137-145) 04/27/21 07:52 Potassium 3.5 mmol/L (3.6-5.0) L 04/27/21 07:52 Chloride 102.7 mmol/L (98-107) 04/27/21 07:52 Carbon Dioxide 26 mmol/L (22-30) 04/27/21 07:52 Anion Gap 16 mmol/L 04/27/21 07:52 BUN 90 mg/dL (7-17) H 04/27/21 07:52 Creatinine 2.8 mg/dL (0.6-1.2) H 04/27/21 07:52 Estimated GFR 20 ml/min 04/27/21 07:52 BUN/Creatinine Ratio 32 % 04/27/21 07:52 Glucose 286 mg/dL (65-100) H 04/27/21 07:52 POC Glucose 298 mg/dL (70-105) H 04/27/21 04:54 Lactic Acid 1.10 mmol/L (0.7-2.0) 04/26/21 09:30 Calcium 9.1 mg/dL (8.4-10.2) 04/27/21 07:52 Phosphorus 2.60 mg/dL (2.5-4.5) 04/22/21 08:00 Magnesium 2.10 mg/dL (1.7-2.3) 04/23/21 07:02 Total Bilirubin 0.70 mg/dL (0.1-1.2) 04/16/21 05:02 AST 65 units/L (5-40) H 04/16/21 05:02 ALT 31 units/L (7-56) 04/16/21 05:02 Alkaline Phosphatase 79 units/L (35-129) 04/16/21 05:02 Ammonia 46.0 umol/L (25-60) 04/15/21 17:20 Total Creatine Kinase 427 units/L (30-135) H 04/18/21 05:34 CK-MB (CK-2) 9.1 ng/mL (0.0-4.0) H 04/17/21 15:35 CK-MB (CK-2) Rel Index 1.4 (0-4) 04/17/21 15:35 Troponin T 0.065 ng/mL (0.00-0.029) H 04/20/21 03:32 NT-Pro-B Natriuret Pep 697.9 pg/mL (0-900) 04/15/21 17:20 Total Protein 6.3 g/dL (6.3-8.2) D 04/16/21 05:02 Albumin 3.8 g/dL (3.9-5) L 04/16/21 05:02 Albumin/Globulin Ratio 1.5 % 04/16/21 05:02 Triglycerides 103 mg/dL (2-149) 04/17/21 05:04 Cholesterol 122 mg/dL (50-199) 04/17/21 05:04 LDL Cholesterol Direct 55 mg/dL (50-130) 04/17/21 05:04 HDL Cholesterol 61 mg/dL (40-59) H 04/17/21 05:04 Cholesterol/HDL Ratio 2.00 % 04/17/21 05:04 Procalcitonin 0.20 ng/mL (<0.15) 04/16/21 19:01 TSH 14.190 mlU/mL (0.270-4.200) H 04/15/21 17:20 Thyroxine (T4) 4.1 ug/dL (4.0-12.0) 04/16/21 19:01 Free T3 Index 1.1 pg/mL (2.3-4.2) L 04/16/21 19:01 Arterial Blood Glucose 325 mg/dL (65-95) H 04/27/21 04:23 Arterial Blood Ionized Calcium 4.8 mg/dL (4.6-5.3) 04/27/21 04:23 Urine Color Yellow (Yellow) 04/18/21 09:11 Urine Turbidity Clear (Clear) 04/18/21 09:11 Urine pH 6.0 (5.0-7.0) 04/18/21 09:11 Ur Specific [place] 1.014 (1.003-1.030) 04/18/21 09:11 Urine Protein >500 mg/dL (Negative) 04/18/21 09:11 Urine Glucose (UA) Neg mg/dL (Negative) 04/18/21 09:11 Urine Ketones Neg mg/dL (Negative) 04/18/21 09:11 Urine Blood Sm (Negative) 04/18/21 09:11 Urine Nitrite Neg (Negative) 04/18/21 09:11 Urine Bilirubin Neg (Negative) 04/18/21 09:11 Urine Urobilinogen 2.0 mg/dL (<2.0) 04/18/21 09:11 Ur Leukocyte Esterase Lg (Negative) 04/18/21 09:11 Urine WBC (Auto) 34.0 /HPF (0.0-6.0) H 04/18/21 09:11 Urine RBC (Auto) 18.0 /HPF (0.0-6.0) 04/18/21 09:11 U Epithel Cells (Auto) < 1.0 /HPF (0-13.0) 04/16/21 00:09 Urine Bacteria (Auto) 1+ /HPF (Negative) 04/16/21 00:09 Urine Creatinine 24.4 mg/dL (0.1-20.0) H 04/16/21 00:12 Urine Sodium 97 mmol/L 04/16/21 00:12 Random Vancomycin 15.5 ug/mL (0-40.0) 04/27/21 07:52 Salicylates 4.1 mg/dL (2.8-20.0) 04/15/21 17:20 Acetaminophen 5.0 ug/mL (10.0-30.0) L 04/15/21 17:20 Plasma/Serum Alcohol 0.02 % (0-0.07) 04/15/21 17:20 Coronavirus (PCR) Negative (Negative) 04/16/21 Unknown Microbiology: Microbiology 04/26/21 09:30 Peripheral/Venous Blood Culture - Preliminary Culture in Progress 04/26/21 09:30 Peripheral/Venous Blood Culture - Preliminary Culture in Progress Kerr/IV: Voiding Method Indwelling Catheter Active Medications - Current Medications Current Medications: Generic Name Dose Route Start Last Admin Trade Name Freq PRN Reason Stop Dose Admin Acetaminophen 650 mg 04/15/21 19:11 04/27/21 06:23 Acetaminophen 325 Mg Tab PO 650 mg Q6H PRN Administration Pain MILD(1-3)/Fever >100.5/SEXTON Albuterol/Ipratropium 1 ampul 04/24/21 14:00 04/27/21 07:33 Ipratropium/Albuterol Sulfate 3 Ml Ampul.Neb IH 1 ampul Q6HRT WOLFGANG Administration Amlodipine Besylate 10 mg 04/25/21 10:00 04/26/21 10:06 Amlodipine 10 Mg Tab PO 10 mg DAILY WOLFGANG Administration Lipase/Protease/Amylase 1 each 04/16/21 12:52 Lipase 10,500/Protease 25,000/Amylase 43,750 (Units) Dr Simpson FEEDTUBE PRN PRN For Clogged Feeding Tube Aspirin 81 mg 04/25/21 10:00 04/26/21 10:06 Aspirin 81 Mg Tab Chew PO 81 mg QDAY WOLFGANG Administration Bisacodyl 10 mg 04/17/21 11:01 04/17/21 13:46 Bisacodyl 10 Mg Rect Supp NV 10 mg QDAY PRN Administration Constipation Brimonidine Tartrate 1 drops 04/17/21 22:00 04/26/21 21:19 Brimonidine 0.15% Ophth Soln OU 1 drops BID WOLFGANG Administration Clopidogrel Bisulfate 75 mg 04/25/21 10:00 04/26/21 10:06 Clopidogrel 75 Mg Tab PO 75 mg QDAY WOLFGANG Administration Epinephrine 0.5 ml 04/21/21 12:56 Epinephrine Racemic 2.25% 0.5ml Nebu IH Q4HRT PRN Shortness Of Breath Famotidine 20 mg 04/17/21 10:00 04/26/21 10:06 Famotidine 20 Mg Tab PO 20 mg DAILY WOLFGANG Administration Fentanyl 50 mcg 04/24/21 13:03 Fentanyl 100 Mcg/2 Ml Inj IV Q10MIN PRN ANALGESIA Heparin Sodium (Porcine) 5,000 unit 04/15/21 22:00 04/26/21 21:18 Heparin 5,000 Unit/1 Ml Vial SUB-Q 5,000 unit Q12HR WOLFGANG Administration Hydralazine HCl 10 mg 04/16/21 18:00 04/24/21 05:25 Hydralazine 20 Mg/1 Ml Inj IV 10 mg Q4HR PRN Administration Hypertension Hydralazine HCl 100 mg 04/21/21 14:00 04/27/21 08:01 Hydralazine 100 Mg Tab PO 100 mg TID WOLFGANG Administration Hydrophilic Ointment 1 applic 04/15/21 17:24 Lip Therapy Vaseline TP Q2HR PRN Dry Lips Fentanyl Citrate 2,000 mcg in 100 mls @ 4.765 mls/hr 04/24/21 14:00 04/25/21 09:15 Fentanyl Drip Premix IV 0 mcg/kg/hr TITR WOLFGANG 0 mls/hr Titration Protocol 1 MCG/KG/HR Propofol 1,000 mg in 100 mls @ 2.859 mls/hr 04/24/21 14:00 04/25/21 09:10 Diprivan 10 Mg/Ml IV 0 mcg/kg/min TITR WOLFGANG 0 mls/hr Titration Protocol 5 MCG/KG/MIN Cefepime HCl 2 gm in 100 mls @ 200 mls/hr 04/27/21 10:00 Cefepime/Ns 2 Gm/100 Ml IV Q24H [facility] Protocol Insulin Glargine 30 units 04/25/21 08:00 04/27/21 08:01 Insulin Glargine 100 Units/Ml SUB-Q 30 units QAMDIAB [facility] Administration Insulin Human Lispro 0 unit 04/16/21 15:00 04/27/21 06:06 Insulin Lispro 100 Unit/Ml SUB-Q 6 unit Q6HR [facility] Administration Protocol Latanoprost 1 drops 04/17/21 18:00 04/26/21 17:54 Latanoprost 0.005% Ophth Soln 2.5 Ml OU 1 drops QPM WOLFGANG Administration Levothyroxine Sodium 25 mcg 04/19/21 06:00 04/27/21 06:05 Levothyroxine 25 Mcg Tab PO 25 mcg DAILY@0600 [facility] Administration Lorazepam 1 mg 04/24/21 11:32 Lorazepam 2 Mg/Ml Vial IV Q12HR PRN Agitation Metoprolol Tartrate 25 mg 04/19/21 10:00 04/26/21 21:19 Metoprolol Tartrate 25 Mg Tab PO 25 mg BID WOLFGANG Administration Multi-Ingred Cream/Lotion/Oil/Oint 1 applic 04/15/21 17:24 04/26/21 10:05 Mineral Oil/Petrolatum, White Ophth Oint 3.5 Gm OU 1 applic Q4HR PRN Administration Dry Eye(s) Pravastatin Sodium 20 mg 04/19/21 22:00 04/26/21 21:19 Pravastatin 20 Mg Tab PO 20 mg QHS WOLFGANG Administration Scopolamine 1 each 04/20/21 18:00 04/26/21 10:06 Scopolamine Transdermal Patch 72 Hr TD 1 each Q3D WOLFGANG Administration Simple Syrup 15 ml 04/16/21 12:52 Simple Syrup 15 Ml FEEDTUBE PRN PRN Hypoglycemia Simple Syrup 30 ml 04/16/21 12:52 Simple Syrup 15 Ml FEEDTUBE PRN PRN Hypoglycemia Sodium Bicarbonate 325 mg 04/16/21 12:52 Sodium Bicarbonate 325 Mg Tab FEEDTUBE PRN PRN For Clogged Feeding Tube Sodium Chloride 10 ml 04/15/21 22:00 04/26/21 10:08 Sodium Chloride 0.9% 10 Ml Flush Syringe IV 10 ml BID WOLFGANG Administration Sodium Chloride 10 ml 04/15/21 19:11 04/24/21 05:27 Sodium Chloride 0.9% 10 Ml Flush Syringe IV 10 ml PRN PRN Administration LINE FLUSH Tamsulosin HCl 0.4 mg 04/25/21 14:00 04/26/21 10:06 Tamsulosin 0.4 Mg Cap PO 0.4 mg QDAY WOLFGANG Administration Timolol Maleate 1 drops 04/19/21 10:00 04/26/21 10:07 Timolol 0.5% Ophth Soln 5 Ml OU 1 drops QDAY WOLFGANG Administration Nutrition/Malnutrition Assess - Dietary Evaluation Nutrition/Malnutrition Findings: Nutrition Notes Start: 04/16/21 12:31 Freq: Status: Active Protocol: Document 04/23/21 11:37 MAYE (Rec: 04/23/21 11:53 MAYE [id number]) Nutrition Notes Initial or Follow up Reassessment Current Diagnosis Acute Kidney Injury,Coronary Artery Disease,Diabetes, Hypertension Other Pertinent Diagnosis UTI, acute metabolic encephalopathy Current Diet TF - Glucerna 1.2 at 50ml/hr Labs/Tests BUN 57 Cr 2 BG 253 Pertinent Medications Lantus, Solumedrol, Scopolamine Height 5 ft 6 in Weight 95.3 kg [place] Body Weight (kg) 59.09 BMI 33.9 Weight Status Obese Subjective/Other Information Spoke with RN via phone at 11: 32. Pt extubated on 04/20 and is tolerating TF at goal rate; receives 50ml water flush q4h . Percent of energy/protein needs met: 100% energy 61% pro Burn Absent Trauma Absent #1 Nutrition Diagnosis Inadequate oral intake Diagnosis Progress(for reassessment Continues documentation) Is patient on ventilator? No Is Patient Ambulatory and/or Out of Bed No REE-([facility]-confined to bed) [phone] Kcal/Kg value to use for calculation 13 Approximate Energy Requirements Using 1239 kcal/Kg Calculation Used for Recommendations Kcal/kg Additional Notes Pro needs >2g/kg IBW: >118g/ day Fluid needs 1ml/kcal Nutrition Intervention Nutrition Support: Continue Glucerna 1.2 at 50ml/ hr with 50ml water flush q4h. Kcal 1,440 Protein (gm) 72 Fluid (mL) 966 Goal #1 TF tolerance Goal #2 TF to meet energy and pro needs as best possible Follow-Up By: 04/30/21 Additional Comments F/U: stable TF, wt
[2021-04-27] MEDS ORDERED: INSULIN GLARGINE 100 UNITS/ML SUB-Q ONE (10:00)
--- NOTE | 2021-04-27 12:01 | Progress Note ---
Assessment and Plan 1. Acute kidney injury: Vasomotor ROJELIO. ATN likely. Renal US negative for hydro. Baseline renal function is unknown. Monitor renal function. Non-oliguric. Now has hui catheter. Creatinine level increasing. Avoid nephrotoxic agents. Meds dosage based on GFR. 2. FEN: Hypokalemia, replete K, monitor. Hyponatremia, improved. Monitor lytes and volume status. 3. Acute hypoxemic respiratory failure: S/p extubated, re-intubated 04/24. 4. Acute encephalopathy: Hypoglycemia. MRI brain negative. Followed by Neuro. 5. Pseudomonas UTI. 6. Hypertension. 7. DM type 2. 8. Mild rhabdomyolysis. 9. Mildly complex R renal cyst. Subjective: Patient was seen and examined at the bedside. RN at the bedside. Examination: General appearance: well-developed, appears stated age, intubated on vent HEENT: BRUCE, atraumatic Neck: trachea midline Respiratory: Coarse breath sounds heard Heart: S1S2, no murmur Abdomen: soft, obese, bowel sounds heard, NT Integumentary: no obvious rash Neurologic: stuporous Ext: no edema noted : Hui catheter Subjective Date of service: 04/27/21 Principal diagnosis: Ac. resp failure; AMS; Hypoglycemia; ROJELIO; Hyperkalemia; DM II Objective - Vital Signs Vital signs: Vital Signs - 12hr 04/27/21 04/27/21 04/27/21 00:00 00:30 01:00 Temperature 100.6 F H Pulse Rate 84 90 93 H Pulse Rate [ Bilateral] Pulse Rate [ 90 From Monitor] Respiratory 18 24 21 Rate Respiratory Rate [Bilateral ] Blood Pressure 119/54 116/62 121/51 O2 Sat by Pulse 96 97 95 Oximetry 04/27/21 04/27/21 04/27/21 01:30 02:00 02:30 Temperature Pulse Rate 93 H 97 H 94 H Pulse Rate [ Bilateral] Pulse Rate [ From Monitor] Respiratory 19 26 H 17 Rate Respiratory Rate [Bilateral ] Blood Pressure 121/51 135/57 135/57 O2 Sat by Pulse 98 98 97 Oximetry 04/27/21 04/27/21 04/27/21 03:00 03:13 03:30 Temperature 101 F H Pulse Rate 99 H 96 H Pulse Rate [ Bilateral] Pulse Rate [ From Monitor] Respiratory 27 H 21 Rate Respiratory Rate [Bilateral ] Blood Pressure 155/80 139/55 O2 Sat by Pulse 97 98 Oximetry 04/27/21 04/27/21 04/27/21 04:00 04:30 05:00 Temperature Pulse Rate 96 H 96 H 99 H Pulse Rate [ Bilateral] Pulse Rate [ 95 H From Monitor] Respiratory 12 12 17 Rate Respiratory Rate [Bilateral ] Blood Pressure 133/58 137/63 133/58 O2 Sat by Pulse 100 Oximetry 04/27/21 04/27/21 04/27/21 05:30 06:00 06:30 Temperature Pulse Rate 97 H 106 H 102 H Pulse Rate [ Bilateral] Pulse Rate [ From Monitor] Respiratory 13 16 22 Rate Respiratory Rate [Bilateral ] Blood Pressure 133/58 142/69 139/51 O2 Sat by Pulse 100 100 100 Oximetry 04/27/21 04/27/21 04/27/21 07:00 07:30 07:33 Temperature Pulse Rate 99 H 92 H 102 H Pulse Rate [ 95 H Bilateral] Pulse Rate [ From Monitor] Respiratory 24 17 Rate Respiratory 22 Rate [Bilateral ] Blood Pressure 136/54 117/49 117/49 O2 Sat by Pulse 100 100 100 Oximetry 04/27/21 04/27/21 04/27/21 08:00 08:30 09:00 Temperature Pulse Rate 91 H 91 H 91 H Pulse Rate [ Bilateral] Pulse Rate [ 97 H From Monitor] Respiratory 25 H 32 H 33 H Rate Respiratory Rate [Bilateral ] Blood Pressure 128/54 123/60 123/60 O2 Sat by Pulse 100 100 Oximetry 04/27/21 04/27/21 04/27/21 09:14 09:15 09:30 Temperature Pulse Rate 105 H 92 H 96 H Pulse Rate [ Bilateral] Pulse Rate [ From Monitor] Respiratory 38 H Rate Respiratory Rate [Bilateral ] Blood Pressure 136/49 136/49 136/49 O2 Sat by Pulse Oximetry 04/27/21 04/27/21 04/27/21 10:00 10:30 11:00 Temperature Pulse Rate 81 80 80 Pulse Rate [ Bilateral] Pulse Rate [ From Monitor] Respiratory 25 H 24 26 H Rate Respiratory Rate [Bilateral ] Blood Pressure 132/67 110/47 115/48 O2 Sat by Pulse Oximetry 04/27/21 11:10 Temperature Pulse Rate 86 Pulse Rate [ Bilateral] Pulse Rate [ From Monitor] Respiratory 32 H Rate Respiratory Rate [Bilateral ] Blood Pressure 115/48 O2 Sat by Pulse 100 Oximetry - Lab 04/27/21 07:52 04/27/21 07:52 Most recent lab results ABG pH 7.549 (7.320-7.450) H 04/27/21 04:23 ABG O2 Saturation 93.9 (0-100) 04/27/21 04:23 Calcium 9.1 mg/dL (8.4-10.2) 04/27/21 07:52 Phosphorus 2.60 mg/dL (2.5-4.5) 04/22/21 08:00 Magnesium 2.10 mg/dL (1.7-2.3) 04/23/21 07:02 Urine Creatinine 24.4 mg/dL (0.1-20.0) H 04/16/21 00:12 Urine Sodium 97 mmol/L 04/16/21 00:12 Medications & Allergies - Medications Allergies/Adverse Reactions: Allergies No Known Allergies Allergy (Unverified 04/15/21 17:41) Home Medications: Home Medications Medication Instructions Recorded Confirmed Last Taken Type Betaxolol HCl [Betoptic S 0.25% 1 drop OU BID 04/16/21 04/16/21 Unknown History SUSP] Bimatoprost [Lumigan 0.01%] 1 drop OU QPM 04/16/21 04/16/21 Unknown History Brimonidine Tartrate [Brimonidine 5 ml OU BID 04/16/21 04/16/21 Unknown History Tartrate 0.2%] Furosemide [Lasix TAB] 40 mg PO QDAY 04/16/21 04/16/21 Unknown History Gabapentin [Neurontin] 300 mg PO Q8HR 04/16/21 04/16/21 Unknown History HYDROcodone/APAP 10-325 [[place] 1 each PO Q6HR PRN 04/16/21 04/16/21 Unknown History 10/325] Hydralazine HCl 50 mg PO Q4HR 04/16/21 04/16/21 Unknown History Insulin Aspart Prot/Insuln Asp 52 units SQ HS 04/16/21 04/16/21 Unknown History [Novolog Mix 70-30 Flexpen] Metoprolol [Lopressor] 25 mg PO BID 04/16/21 04/16/21 Unknown History Pravastatin [Pravachol] 20 mg PO QHS 04/16/21 04/16/21 Unknown History Promethazine [Phenergan] 25 mg PO Q6HR 04/16/21 04/16/21 Unknown History allopurinoL [Zyloprim] 150 mg PO QDAY 04/16/21 04/16/21 Unknown History Active Medications: Generic Name Dose Route Start Last Admin Trade Name Freq PRN Reason Stop Dose Admin Acetaminophen 650 mg 04/15/21 19:11 04/27/21 06:23 Acetaminophen 325 Mg Tab PO 650 mg Q6H PRN Administration Pain MILD(1-3)/Fever >100.5/SEXTON Albuterol/Ipratropium 1 ampul 04/24/21 14:00 04/27/21 07:33 Ipratropium/Albuterol Sulfate 3 Ml Ampul.Neb IH 1 ampul Q6HRT WOLFGANG Administration Amlodipine Besylate 10 mg 04/25/21 10:00 04/27/21 09:15 Amlodipine 10 Mg Tab PO 10 mg DAILY WOLFGANG Administration Lipase/Protease/Amylase 1 each 04/16/21 12:52 Lipase 10,500/Protease 25,000/Amylase 43,750 (Units) Dr Simpson FEEDTUBE PRN PRN For Clogged Feeding Tube Aspirin 81 mg 04/25/21 10:00 04/27/21 09:15 Aspirin 81 Mg Tab Chew PO 81 mg QDAY WOLFGANG Administration Bisacodyl 10 mg 04/17/21 11:01 04/17/21 13:46 Bisacodyl 10 Mg Rect Supp HI 10 mg QDAY PRN Administration Constipation Brimonidine Tartrate 1 drops 04/17/21 22:00 04/27/21 09:17 Brimonidine 0.15% Ophth Soln OU 1 drops BID WOLFGANG Administration Clopidogrel Bisulfate 75 mg 04/25/21 10:00 04/27/21 09:15 Clopidogrel 75 Mg Tab PO 75 mg QDAY WOLFGANG Administration Epinephrine 0.5 ml 04/21/21 12:56 Epinephrine Racemic 2.25% 0.5ml Nebu IH Q4HRT PRN Shortness Of Breath Famotidine 20 mg 04/17/21 10:00 04/27/21 09:15 Famotidine 20 Mg Tab PO 20 mg DAILY WOLFGANG Administration Fentanyl 50 mcg 04/24/21 13:03 Fentanyl 100 Mcg/2 Ml Inj IV Q10MIN PRN ANALGESIA Heparin Sodium (Porcine) 5,000 unit 04/15/21 22:00 04/27/21 09:15 Heparin 5,000 Unit/1 Ml Vial SUB-Q 5,000 unit Q12HR WOLFGANG Administration Hydralazine HCl 10 mg 04/16/21 18:00 04/24/21 05:25 Hydralazine 20 Mg/1 Ml Inj IV 10 mg Q4HR PRN Administration Hypertension Hydralazine HCl 100 mg 04/21/21 14:00 04/27/21 08:01 Hydralazine 100 Mg Tab PO 100 mg TID [facility] Administration Hydrophilic Ointment 1 applic 04/15/21 17:24 Lip Therapy Vaseline TP Q2HR PRN Dry Lips Fentanyl Citrate 2,000 mcg in 100 mls @ 4.765 mls/hr 04/24/21 14:00 04/25/21 09:15 Fentanyl Drip Premix IV 0 mcg/kg/hr TITR WOLFGANG 0 mls/hr Titration Protocol 1 MCG/KG/HR Propofol 1,000 mg in 100 mls @ 2.859 mls/hr 04/24/21 14:00 04/25/21 09:10 Diprivan 10 Mg/Ml IV 0 mcg/kg/min TITR WOLFGANG 0 mls/hr Titration Protocol 5 MCG/KG/MIN Cefepime HCl 2 gm in 100 mls @ 200 mls/hr 04/27/21 10:00 04/27/21 09:16 Cefepime/Ns 2 Gm/100 Ml IV 200 mls/hr Q24H [facility] Administration Protocol Insulin Glargine 40 units 04/28/21 08:00 Insulin Glargine 100 Units/Ml SUB-Q QAMDIAB [facility] Insulin Human Lispro 0 unit 04/16/21 15:00 04/27/21 11:52 Insulin Lispro 100 Unit/Ml SUB-Q 6 unit Q6HR [facility] Administration Protocol Latanoprost 1 drops 04/17/21 18:00 04/26/21 17:54 Latanoprost 0.005% Ophth Soln 2.5 Ml OU 1 drops QPM [facility] Administration Levothyroxine Sodium 25 mcg 04/19/21 06:00 04/27/21 06:05 Levothyroxine 25 Mcg Tab PO 25 mcg DAILY@0600 [facility] Administration Lorazepam 1 mg 04/24/21 11:32 Lorazepam 2 Mg/Ml Vial IV Q12HR PRN Agitation Metoprolol Tartrate 25 mg 04/19/21 10:00 04/27/21 09:14 Metoprolol Tartrate 25 Mg Tab PO 25 mg BID [facility] Administration Multi-Ingred Cream/Lotion/Oil/Oint 1 applic 04/15/21 17:24 04/26/21 10:05 Mineral Oil/Petrolatum, White Ophth Oint 3.5 Gm OU 1 applic Q4HR PRN Administration Dry Eye(s) Pravastatin Sodium 20 mg 04/19/21 22:00 04/26/21 21:19 Pravastatin 20 Mg Tab PO 20 mg QHS [facility] Administration Scopolamine 1 each 04/20/21 18:00 04/26/21 10:06 Scopolamine Transdermal Patch 72 Hr TD 1 each Q3D [facility] Administration Simple Syrup 15 ml 04/16/21 12:52 Simple Syrup 15 Ml FEEDTUBE PRN PRN Hypoglycemia Simple Syrup 30 ml 04/16/21 12:52 Simple Syrup 15 Ml FEEDTUBE PRN PRN Hypoglycemia Sodium Bicarbonate 325 mg 04/16/21 12:52 Sodium Bicarbonate 325 Mg Tab FEEDTUBE PRN PRN For Clogged Feeding Tube Sodium Chloride 10 ml 04/15/21 22:00 04/26/21 10:08 Sodium Chloride 0.9% 10 Ml Flush Syringe IV 10 ml BID W[facility] Administration Sodium Chloride 10 ml 04/15/21 19:11 04/24/21 05:27 Sodium Chloride 0.9% 10 Ml Flush Syringe IV 10 ml PRN PRN Administration LINE FLUSH Tamsulosin HCl 0.4 mg 04/25/21 14:00 04/27/21 09:15 Tamsulosin 0.4 Mg Cap PO 0.4 mg QDAY [facility] Administration Timolol Maleate 1 drops 04/19/21 10:00 04/27/21 09:17 Timolol 0.5% Ophth Soln 5 Ml OU 1 drops QDAY [facility] Administration
--- NOTE | 2021-04-27 12:29 | Progress Note ---
Assessment and Plan Acute respiratory failure, on mechanical ventilatory support. Acute toxic metabolic encephalopathy Hypoglycemia ROJELIO Hyperkalemia Rhabdomyolysis Possible seizure activity DM II HTN CAD Obesity H/O breast cancer H/O TIA Leukocytosis Elevated serum TSH, possible hypothyroidism - she will need a tracheostomy for safe liberation from MVS - she failed extubation and was noted to have stridor I had discussions with the nephew, who is POA. He is ok with proceeding with trach, consult to general surgery will be placed - continue to titrate supplemental oxygen to keep SpO2 89-92% - VAP bundle addressed, aspiration precatuions HOb>30 Hold tube feedings, advance the SBT adn follow up KUB - continue lung protective strategies - continue bronchodilators with pulmonary hygiene per RT - continue Daily SAT and SBT assessment as tolerated - wean per pulmonary driven protocols otherwise - continue accuchecks with glycemic control per SSI (While critically ill target blood glucose of 140-180 mg/dL; avoid hypoglycemia) - sedation prn for target RASS 0 to -1 - avoid nephrotoxins, renally dose all medications - continue to avoid benzodiazepines, reduce the possibility of delirium - follow clinically off ABs; trend fevers / WBC -ABG and CXr as clinically indicated - prn analgesia per CPOT score - Maintenance of sleep-wake cycle, avoid delirium - continue enteral nutritional support at goal rate as tolerated - G.I. & VTE prophylaxis - PT/OT/ROM exercises - continue mobility protocols for pressure ulcer prophylaxis - Monitor hemodynamics closely - continue other care per attending / other consultants CONDITION: CRITICAL PROGNOSIS: GUARDED CODE STATUS: FULL CODE The high probability of a clinically significant, sudden or life-threatening deterioration of the [respiratory, cardiovascular, GI & neurologic] system(s) required my full and direct attention, intervention and personal management. The aggregate critical care time was [34] minutes without overlap. Time includes spent on; [x] Data Review and interpretation [x] Patient assessment and monitoring of vital signs [x] Documentation [x] Medication orders and management Subjective Date of service: 04/27/21 Principal diagnosis: Ac. resp failure; AMS; Hypoglycemia; ROJELIO; Hyperkalemia; DM II Interval history: Patient is seen today for: Acute respiratory failure; AMS; Hypoglycemia; ROJELIO; Hyperkalemia; DM II; H/O breast cancer; Elevated serum TSH, possible hypothyroidism Seen and examined at bedside; 24hour events reviewed; nursing and respiratory care staff consulted; no adverse overnight events reported to me; resting peacefully in bed; remains on MVS; tolerating daytime PSV discussed care plan at length with her nephew / POA and he is ok to proceed with tracheostomy. Her adopted son is also visiting at the bedside No acute or adverse overnight events. No fevers, no diarrhea, no vomiting. Her small bowel feeding tube is significantly out of the nares Objective Vital Signs - 12hr 04/27/21 04/27/21 04/27/21 00:30 01:00 01:30 Temperature Pulse Rate 90 93 H 93 H Pulse Rate [ Bilateral] Pulse Rate [ From Monitor] Respiratory 24 21 19 Rate Respiratory Rate [Bilateral ] Blood Pressure 116/62 121/51 121/51 O2 Sat by Pulse 97 95 98 Oximetry 04/27/21 04/27/21 04/27/21 02:00 02:30 03:00 Temperature Pulse Rate 97 H 94 H 99 H Pulse Rate [ Bilateral] Pulse Rate [ From Monitor] Respiratory 26 H 17 27 H Rate Respiratory Rate [Bilateral ] Blood Pressure 135/57 135/57 155/80 O2 Sat by Pulse 98 97 97 Oximetry 04/27/21 04/27/21 04/27/21 03:13 03:30 04:00 Temperature 101 F H Pulse Rate 96 H 96 H Pulse Rate [ Bilateral] Pulse Rate [ 95 H From Monitor] Respiratory 21 12 Rate Respiratory Rate [Bilateral ] Blood Pressure 139/55 133/58 O2 Sat by Pulse 98 100 Oximetry 04/27/21 04/27/21 04/27/21 04:30 05:00 05:30 Temperature Pulse Rate 96 H 99 H 97 H Pulse Rate [ Bilateral] Pulse Rate [ From Monitor] Respiratory 12 17 13 Rate Respiratory Rate [Bilateral ] Blood Pressure 137/63 133/58 133/58 O2 Sat by Pulse 100 Oximetry 04/27/21 04/27/21 04/27/21 06:00 06:30 07:00 Temperature Pulse Rate 106 H 102 H 99 H Pulse Rate [ Bilateral] Pulse Rate [ From Monitor] Respiratory 16 22 24 Rate Respiratory Rate [Bilateral ] Blood Pressure 142/69 139/51 136/54 O2 Sat by Pulse 100 100 100 Oximetry 04/27/21 04/27/21 04/27/21 07:30 07:33 08:00 Temperature Pulse Rate 92 H 102 H 91 H Pulse Rate [ 95 H Bilateral] Pulse Rate [ 97 H From Monitor] Respiratory 17 25 H Rate Respiratory 22 Rate [Bilateral ] Blood Pressure 117/49 117/49 128/54 O2 Sat by Pulse 100 100 100 Oximetry 04/27/21 04/27/21 04/27/21 08:30 09:00 09:14 Temperature Pulse Rate 91 H 91 H 105 H Pulse Rate [ Bilateral] Pulse Rate [ From Monitor] Respiratory 32 H 33 H Rate Respiratory Rate [Bilateral ] Blood Pressure 123/60 123/60 136/49 O2 Sat by Pulse 100 Oximetry 04/27/21 04/27/21 04/27/21 09:15 09:30 10:00 Temperature Pulse Rate 92 H 96 H 81 Pulse Rate [ Bilateral] Pulse Rate [ From Monitor] Respiratory 38 H 25 H Rate Respiratory Rate [Bilateral ] Blood Pressure 136/49 136/49 132/67 O2 Sat by Pulse Oximetry 04/27/21 04/27/21 04/27/21 10:30 11:00 11:10 Temperature Pulse Rate 80 80 86 Pulse Rate [ Bilateral] Pulse Rate [ From Monitor] Respiratory 24 26 H 32 H Rate Respiratory Rate [Bilateral ] Blood Pressure 110/47 115/48 115/48 O2 Sat by Pulse 100 Oximetry 04/27/21 04/27/21 11:30 12:00 Temperature Pulse Rate 83 89 Pulse Rate [ Bilateral] Pulse Rate [ 80 From Monitor] Respiratory 29 H 23 Rate Respiratory Rate [Bilateral ] Blood Pressure 115/48 128/44 O2 Sat by Pulse 100 Oximetry Constitutional: no acute distress, alert, other (elderly obese female with mildly increased respiratory effort at rest on MVS) Eyes: non-icteric (Patient obese and having mild respiratory distress at rest) ENT: oropharynx moist, other (ETT 24 cm RICARDO) Neck: supple, no lymphadenopathy, no JVD, other (large circumference) Effort: mildly labored Ascultation: Bilateral: clear, diminished breath sounds, rhonchi, other (mild stridorous sounds) Percussion: Bilateral: not dull Cardiovascular: regular rate and rhythm, other (S1,S2) Gastrointestinal: normoactive bowel sounds, soft, non-tender, non-distended (protuberant) Integumentary: normal Extremities: no cyanosis, no edema, pulses normal, no ischemia or petechiae Neurologic: non-focal exam (grossly with intermittent spontaneous movement to extremities but ? mild posturing (decerebrate)), pupils equal and round Psychiatric: mood appropriate, affect normal CBC and BMP: 04/28/21 04:13 04/28/21 04:13 ABG, PT/INR, D-dimer: ABG ABG pH 7.549 (7.320-7.450) H 04/27/21 04:23 POC ABG pCO2 30.0 mmHg (32.0-48.0) L 04/27/21 04:23 POC ABG pO2 64.9 mmHg (83-108) L 04/27/21 04:23 POC ABG HCO3 25.6 04/27/21 04:23 ABG O2 Saturation 93.9 (0-100) 04/27/21 04:23 PT/INR, D-dimer PT 12.2 Sec. (12.2-14.9) 04/15/21 17:20 INR 0.91 (0.87-1.13) 04/15/21 17:20 Abnormal lab findings: Abnormal Labs 04/15/21 04/15/21 04/15/21 17:00 17:20 17:20 WBC 11.2 H RBC Hct 43.0 H MCV RDW 15.3 H Plt Count Lymph % (Auto) 12.8 L Seg Neutrophils % 82.4 H Seg Neuts % (Manual) Lymphocytes % (Manual) Monocytes % (Manual) Seg Neutrophils # 9.3 H Seg Neutrophils # Man Lymphocytes # (Manual) Monocytes # (Manual) ABG pH POC ABG pCO2 POC ABG pO2 ABG Hemoglobin ABG Oxyhemoglobin ABG Sodium ABG Potassium ABG Chloride ABG Glucose Carboxyhemoglobin Sodium 129 L Potassium 7.1 H* Chloride 91.9 L BUN 35 H Creatinine 2.8 H Glucose POC Glucose 191 H Calcium Phosphorus Magnesium AST 69 H Total Creatine Kinase CK-MB (CK-2) Troponin T Albumin HDL Cholesterol TSH Free T3 Index Arterial Blood Glucose Arterial Blood Ionized Calcium Urine pH Urine WBC (Auto) Urine Creatinine Acetaminophen 04/15/21 04/15/21 04/15/21 17:20 17:20 17:20 WBC RBC Hct MCV RDW Plt Count Lymph % (Auto) Seg Neutrophils % Seg Neuts % (Manual) Lymphocytes % (Manual) Monocytes % (Manual) Seg Neutrophils # Seg Neutrophils # Man Lymphocytes # (Manual) Monocytes # (Manual) ABG pH POC ABG pCO2 POC ABG pO2 ABG Hemoglobin ABG Oxyhemoglobin ABG Sodium ABG Potassium ABG Chloride ABG Glucose Carboxyhemoglobin Sodium Potassium Chloride BUN Creatinine Glucose POC Glucose Calcium Phosphorus Magnesium AST Total Creatine Kinase 1000 H CK-MB (CK-2) Troponin T Albumin HDL Cholesterol TSH 14.190 H Free T3 Index Arterial Blood Glucose Arterial Blood Ionized Calcium Urine pH Urine WBC (Auto) Urine Creatinine Acetaminophen 5.0 L 04/15/21 04/15/21 04/15/21 20:49 21:23 23:15 WBC RBC Hct MCV RDW Plt Count Lymph % (Auto) Seg Neutrophils % Seg Neuts % (Manual) Lymphocytes % (Manual) Monocytes % (Manual) Seg Neutrophils # Seg Neutrophils # Man Lymphocytes # (Manual) Monocytes # (Manual) ABG pH 7.557 H POC ABG pCO2 30.0 L POC ABG pO2 493.3 H ABG Hemoglobin ABG Oxyhemoglobin 99.0 H ABG Sodium 131.5 L ABG Potassium 4.7 H ABG Chloride 94.0 L ABG Glucose 218 H Carboxyhemoglobin Sodium Potassium Chloride BUN Creatinine Glucose POC Glucose 173 H 207 H Calcium Phosphorus Magnesium AST Total Creatine Kinase CK-MB (CK-2) Troponin T Albumin HDL Cholesterol TSH Free T3 Index Arterial Blood Glucose 218 H Arterial Blood Ionized Calcium 5.4 H Urine pH Urine WBC (Auto) Urine Creatinine Acetaminophen 04/16/21 04/16/21 04/16/21 00:09 00:12 00:19 WBC RBC Hct MCV RDW Plt Count Lymph % (Auto) Seg Neutrophils % Seg Neuts % (Manual) Lymphocytes % (Manual) Monocytes % (Manual) Seg Neutrophils # Seg Neutrophils # Man Lymphocytes # (Manual) Monocytes # (Manual) ABG pH POC ABG pCO2 POC ABG pO2 ABG Hemoglobin ABG Oxyhemoglobin ABG Sodium ABG Potassium ABG Chloride ABG Glucose Carboxyhemoglobin Sodium Potassium 6.7 H* Chloride BUN Creatinine Glucose POC Glucose Calcium Phosphorus Magnesium AST Total Creatine Kinase CK-MB (CK-2) Troponin T Albumin HDL Cholesterol TSH Free T3 Index Arterial Blood Glucose Arterial Blood Ionized Calcium Urine pH 9.0 H Urine WBC (Auto) Urine Creatinine 24.4 H Acetaminophen 04/16/21 04/16/21 04/16/21 03:43 03:55 05:02 WBC 21.2 H RBC Hct 43.4 H MCV 98 H RDW Plt Count Lymph % (Auto) Seg Neutrophils % Seg Neuts % (Manual) 84.0 H Lymphocytes % (Manual) 2.0 L Monocytes % (Manual) 10.0 H Seg Neutrophils # Seg Neutrophils # Man 17.8 H Lymphocytes # (Manual) 0.4 L Monocytes # (Manual) 2.1 H ABG pH 7.461 H POC ABG pCO2 POC ABG pO2 ABG Hemoglobin ABG Oxyhemoglobin ABG Sodium 126.8 L ABG Potassium 5.4 H ABG Chloride 90.0 L ABG Glucose 325 H Carboxyhemoglobin Sodium Potassium Chloride BUN Creatinine Glucose POC Glucose 391 H Calcium Phosphorus Magnesium AST Total Creatine Kinase CK-MB (CK-2) Troponin T Albumin HDL Cholesterol TSH Free T3 Index Arterial Blood Glucose 325 H Arterial Blood Ionized Calcium Urine pH Urine WBC (Auto) Urine Creatinine Acetaminophen 04/16/21 04/16/21 04/16/21 05:02 11:34 16:09 WBC RBC Hct MCV RDW Plt Count Lymph % (Auto) Seg Neutrophils % Seg Neuts % (Manual) Lymphocytes % (Manual) Monocytes % (Manual) Seg Neutrophils # Seg Neutrophils # Man Lymphocytes # (Manual) Monocytes # (Manual) ABG pH POC ABG pCO2 POC ABG pO2 ABG Hemoglobin ABG Oxyhemoglobin ABG Sodium ABG Potassium ABG Chloride ABG Glucose Carboxyhemoglobin Sodium 131 L Potassium 5.9 H Chloride 88.7 L BUN 34 H Creatinine 2.9 H Glucose 249 H POC Glucose 382 H 300 H Calcium 10.4 H Phosphorus Magnesium AST 65 H Total Creatine Kinase CK-MB (CK-2) Troponin T Albumin 3.8 L HDL Cholesterol TSH Free T3 Index Arterial Blood Glucose Arterial Blood Ionized Calcium Urine pH Urine WBC (Auto) Urine Creatinine Acetaminophen 04/16/21 04/16/21 04/16/21 18:15 19:01 19:01 WBC RBC Hct MCV RDW Plt Count Lymph % (Auto) Seg Neutrophils % Seg Neuts % (Manual) Lymphocytes % (Manual) Monocytes % (Manual) Seg Neutrophils # Seg Neutrophils # Man Lymphocytes # (Manual) Monocytes # (Manual) ABG pH POC ABG pCO2 POC ABG pO2 ABG Hemoglobin ABG Oxyhemoglobin ABG Sodium ABG Potassium ABG Chloride ABG Glucose Carboxyhemoglobin Sodium 125 L Potassium 5.5 H Chloride 84.5 L BUN 37 H Creatinine 3.5 H Glucose 236 H POC Glucose 287 H Calcium Phosphorus Magnesium AST Total Creatine Kinase CK-MB (CK-2) Troponin T Albumin HDL Cholesterol TSH Free T3 Index 1.1 L Arterial Blood Glucose Arterial Blood Ionized Calcium Urine pH Urine WBC (Auto) Urine Creatinine Acetaminophen 04/16/21 04/16/21 04/17/21 19:01 23:48 03:09 WBC RBC Hct MCV RDW Plt Count Lymph % (Auto) Seg Neutrophils % Seg Neuts % (Manual) Lymphocytes % (Manual) Monocytes % (Manual) Seg Neutrophils # Seg Neutrophils # Man Lymphocytes # (Manual) Monocytes # (Manual) ABG pH 7.518 H POC ABG pCO2 POC ABG pO2 ABG Hemoglobin ABG Oxyhemoglobin ABG Sodium 126.4 L ABG Potassium ABG Chloride 89.0 L ABG Glucose 200 H Carboxyhemoglobin Sodium Potassium 5.6 H Chloride BUN Creatinine Glucose POC Glucose 243 H Calcium Phosphorus Magnesium AST Total Creatine Kinase CK-MB (CK-2) Troponin T Albumin HDL Cholesterol TSH Free T3 Index Arterial Blood Glucose 200 H Arterial Blood Ionized Calcium 4.4 L Urine pH Urine WBC (Auto) Urine Creatinine Acetaminophen 04/17/21 04/17/21 04/17/21 05:04 06:14 11:55 WBC RBC Hct MCV RDW Plt Count Lymph % (Auto) Seg Neutrophils % Seg Neuts % (Manual) Lymphocytes % (Manual) Monocytes % (Manual) Seg Neutrophils # Seg Neutrophils # Man Lymphocytes # (Manual) Monocytes # (Manual) ABG pH POC ABG pCO2 POC ABG pO2 ABG Hemoglobin ABG Oxyhemoglobin ABG Sodium ABG Potassium ABG Chloride ABG Glucose Carboxyhemoglobin Sodium 129 L Potassium Chloride 86.1 L BUN 39 H Creatinine 3.5 H Glucose 202 H POC Glucose 208 H 276 H Calcium Phosphorus Magnesium AST Total Creatine Kinase 750 H CK-MB (CK-2) Troponin T 0.119 H* D Albumin HDL Cholesterol 61 H TSH Free T3 Index Arterial Blood Glucose Arterial Blood Ionized Calcium Urine pH Urine WBC (Auto) Urine Creatinine Acetaminophen 04/17/21 04/17/21 04/17/21 15:35 15:35 17:07 WBC 17.1 H RBC Hct MCV RDW Plt Count Lymph % (Auto) Seg Neutrophils % Seg Neuts % (Manual) Lymphocytes % (Manual) Monocytes % (Manual) Seg Neutrophils # Seg Neutrophils # Man Lymphocytes # (Manual) Monocytes # (Manual) ABG pH POC ABG pCO2 POC ABG pO2 ABG Hemoglobin ABG Oxyhemoglobin ABG Sodium ABG Potassium ABG Chloride ABG Glucose Carboxyhemoglobin Sodium Potassium Chloride BUN Creatinine Glucose POC Glucose 148 H Calcium Phosphorus Magnesium AST Total Creatine Kinase 615 H CK-MB (CK-2) 9.1 H Troponin T Albumin HDL Cholesterol TSH Free T3 Index Arterial Blood Glucose Arterial Blood Ionized Calcium Urine pH Urine WBC (Auto) Urine Creatinine Acetaminophen 04/18/21 04/18/21 04/18/21 00:01 03:00 05:24 WBC RBC Hct MCV RDW Plt Count Lymph % (Auto) Seg Neutrophils % Seg Neuts % (Manual) Lymphocytes % (Manual) Monocytes % (Manual) Seg Neutrophils # Seg Neutrophils # Man Lymphocytes # (Manual) Monocytes # (Manual) ABG pH 7.497 H POC ABG pCO2 POC ABG pO2 77.7 L ABG Hemoglobin 10.4 L ABG Oxyhemoglobin ABG Sodium 129.7 L ABG Potassium 2.8 L ABG Chloride 92.0 L ABG Glucose 134 H Carboxyhemoglobin 0.3 L Sodium Potassium Chloride BUN Creatinine Glucose POC Glucose 192 H 162 H Calcium Phosphorus Magnesium AST Total Creatine Kinase CK-MB (CK-2) Troponin T Albumin HDL Cholesterol TSH Free T3 Index Arterial Blood Glucose 134 H Arterial Blood Ionized Calcium 4.3 L Urine pH Urine WBC (Auto) Urine Creatinine Acetaminophen 04/18/21 04/18/21 04/18/21 05:34 05:34 05:43 WBC 15.3 H RBC 3.34 L Hct MCV RDW 15.3 H Plt Count Lymph % (Auto) Seg Neutrophils % Seg Neuts % (Manual) Lymphocytes % (Manual) Monocytes % (Manual) Seg Neutrophils # Seg Neutrophils # Man Lymphocytes # (Manual) Monocytes # (Manual) ABG pH POC ABG pCO2 POC ABG pO2 ABG Hemoglobin ABG Oxyhemoglobin ABG Sodium ABG Potassium ABG Chloride ABG Glucose Carboxyhemoglobin Sodium 134 L Potassium 3.0 L D Chloride 93.5 L BUN 42 H Creatinine 3.1 H Glucose 152 H POC Glucose Calcium Phosphorus Magnesium 1.40 L AST Total Creatine Kinase 427 H CK-MB (CK-2) Troponin T 0.081 H D Albumin HDL Cholesterol TSH Free T3 Index Arterial Blood Glucose Arterial Blood Ionized Calcium Urine pH Urine WBC (Auto) Urine Creatinine Acetaminophen 04/18/21 04/18/21 04/18/21 09:11 11:34 17:24 WBC RBC Hct MCV RDW Plt Count Lymph % (Auto) Seg Neutrophils % Seg Neuts % (Manual) Lymphocytes % (Manual) Monocytes % (Manual) Seg Neutrophils # Seg Neutrophils # Man Lymphocytes # (Manual) Monocytes # (Manual) ABG pH POC ABG pCO2 POC ABG pO2 ABG Hemoglobin ABG Oxyhemoglobin ABG Sodium ABG Potassium ABG Chloride ABG Glucose Carboxyhemoglobin Sodium Potassium Chloride BUN Creatinine Glucose POC Glucose 170 H 151 H Calcium Phosphorus Magnesium AST Total Creatine Kinase CK-MB (CK-2) Troponin T Albumin HDL Cholesterol TSH Free T3 Index Arterial Blood Glucose Arterial Blood Ionized Calcium Urine pH Urine WBC (Auto) 34.0 H Urine Creatinine Acetaminophen 04/18/21 04/19/21 04/19/21 23:18 04:09 05:19 WBC RBC Hct MCV RDW Plt Count Lymph % (Auto) Seg Neutrophils % Seg Neuts % (Manual) Lymphocytes % (Manual) Monocytes % (Manual) Seg Neutrophils # Seg Neutrophils # Man Lymphocytes # (Manual) Monocytes # (Manual) ABG pH 7.476 H POC ABG pCO2 POC ABG pO2 79.4 L ABG Hemoglobin 10.7 L ABG Oxyhemoglobin ABG Sodium 131.2 L ABG Potassium 2.8 L ABG Chloride 94.0 L ABG Glucose 209 H Carboxyhemoglobin 0.3 L Sodium Potassium Chloride BUN Creatinine Glucose POC Glucose 182 H 204 H Calcium Phosphorus Magnesium AST Total Creatine Kinase CK-MB (CK-2) Troponin T Albumin HDL Cholesterol TSH Free T3 Index Arterial Blood Glucose 209 H Arterial Blood Ionized Calcium Urine pH Urine WBC (Auto) Urine Creatinine Acetaminophen 04/19/21 04/19/21 04/19/21 07:30 07:30 10:35 WBC 14.8 H RBC 3.20 L Hct MCV 98 H RDW Plt Count 137 L Lymph % (Auto) Seg Neutrophils % Seg Neuts % (Manual) Lymphocytes % (Manual) Monocytes % (Manual) Seg Neutrophils # Seg Neutrophils # Man Lymphocytes # (Manual) Monocytes # (Manual) ABG pH 7.464 H POC ABG pCO2 POC ABG pO2 81.8 L ABG Hemoglobin 10.8 L ABG Oxyhemoglobin ABG Sodium 129.6 L ABG Potassium ABG Chloride 95.0 L ABG Glucose 238 H Carboxyhemoglobin Sodium 133 L Potassium 2.8 L* Chloride 94.4 L BUN 43 H Creatinine 2.7 H Glucose 255 H POC Glucose Calcium 8.0 L Phosphorus Magnesium AST Total Creatine Kinase CK-MB (CK-2) Troponin T 0.060 H D Albumin HDL Cholesterol TSH Free T3 Index Arterial Blood Glucose 238 H Arterial Blood Ionized Calcium Urine pH Urine WBC (Auto) Urine Creatinine Acetaminophen 04/19/21 04/19/21 04/19/21 11:48 20:40 23:04 WBC RBC Hct MCV RDW Plt Count Lymph % (Auto) Seg Neutrophils % Seg Neuts % (Manual) Lymphocytes % (Manual) Monocytes % (Manual) Seg Neutrophils # Seg Neutrophils # Man Lymphocytes # (Manual) Monocytes # (Manual) ABG pH POC ABG pCO2 POC ABG pO2 ABG Hemoglobin ABG Oxyhemoglobin ABG Sodium ABG Potassium ABG Chloride ABG Glucose Carboxyhemoglobin Sodium Potassium 3.4 L D Chloride BUN Creatinine Glucose POC Glucose 208 H 173 H Calcium Phosphorus Magnesium AST Total Creatine Kinase CK-MB (CK-2) Troponin T Albumin HDL Cholesterol TSH Free T3 Index Arterial Blood Glucose Arterial Blood Ionized Calcium Urine pH Urine WBC (Auto) Urine Creatinine Acetaminophen 04/20/21 04/20/21 04/20/21 02:56 03:32 03:32 WBC 13.2 H RBC 3.18 L Hct MCV RDW Plt Count Lymph % (Auto) Seg Neutrophils % Seg Neuts % (Manual) Lymphocytes % (Manual) Monocytes % (Manual) Seg Neutrophils # Seg Neutrophils # Man Lymphocytes # (Manual) Monocytes # (Manual) ABG pH 7.526 H POC ABG pCO2 POC ABG pO2 ABG Hemoglobin 10.5 L ABG Oxyhemoglobin ABG Sodium 133.5 L ABG Potassium ABG Chloride ABG Glucose 157 H Carboxyhemoglobin 0.3 L Sodium 135 L Potassium Chloride 96.7 L BUN 40 H Creatinine 2.3 H Glucose 142 H POC Glucose Calcium Phosphorus Magnesium AST Total Creatine Kinase CK-MB (CK-2) Troponin T 0.065 H Albumin HDL Cholesterol TSH Free T3 Index Arterial Blood Glucose 157 H Arterial Blood Ionized Calcium Urine pH Urine WBC (Auto) Urine Creatinine Acetaminophen 04/20/21 04/20/21 04/20/21 03:46 05:42 11:50 WBC RBC Hct MCV RDW Plt Count Lymph % (Auto) Seg Neutrophils % Seg Neuts % (Manual) Lymphocytes % (Manual) Monocytes % (Manual) Seg Neutrophils # Seg Neutrophils # Man Lymphocytes # (Manual) Monocytes # (Manual) ABG pH POC ABG pCO2 POC ABG pO2 ABG Hemoglobin ABG Oxyhemoglobin ABG Sodium ABG Potassium ABG Chloride ABG Glucose Carboxyhemoglobin Sodium Potassium Chloride BUN Creatinine Glucose POC Glucose 160 H 194 H Calcium Phosphorus 2.10 L Magnesium AST Total Creatine Kinase CK-MB (CK-2) Troponin T Albumin HDL Cholesterol TSH Free T3 Index Arterial Blood Glucose Arterial Blood Ionized Calcium Urine pH Urine WBC (Auto) Urine Creatinine Acetaminophen 04/20/21 04/20/21 04/21/21 17:09 23:18 05:26 WBC RBC Hct MCV RDW Plt Count Lymph % (Auto) Seg Neutrophils % Seg Neuts % (Manual) Lymphocytes % (Manual) Monocytes % (Manual) Seg Neutrophils # Seg Neutrophils # Man Lymphocytes # (Manual) Monocytes # (Manual) ABG pH POC ABG pCO2 POC ABG pO2 ABG Hemoglobin ABG Oxyhemoglobin ABG Sodium ABG Potassium ABG Chloride ABG Glucose Carboxyhemoglobin Sodium Potassium Chloride BUN Creatinine Glucose POC Glucose 153 H 162 H 164 H Calcium Phosphorus Magnesium AST Total Creatine Kinase CK-MB (CK-2) Troponin T Albumin HDL Cholesterol TSH Free T3 Index Arterial Blood Glucose Arterial Blood Ionized Calcium Urine pH Urine WBC (Auto) Urine Creatinine Acetaminophen 04/21/21 04/21/21 04/21/21 05:51 05:51 12:12 WBC RBC 3.20 L Hct MCV 99 H RDW 15.3 H Plt Count Lymph % (Auto) Seg Neutrophils % Seg Neuts % (Manual) Lymphocytes % (Manual) Monocytes % (Manual) Seg Neutrophils # Seg Neutrophils # Man Lymphocytes # (Manual) Monocytes # (Manual) ABG pH POC ABG pCO2 POC ABG pO2 ABG Hemoglobin ABG Oxyhemoglobin ABG Sodium ABG Potassium ABG Chloride ABG Glucose Carboxyhemoglobin Sodium Potassium Chloride 96.6 L BUN 42 H Creatinine 2.1 H Glucose 171 H POC Glucose 167 H Calcium Phosphorus Magnesium AST Total Creatine Kinase CK-MB (CK-2) Troponin T Albumin HDL Cholesterol TSH Free T3 Index Arterial Blood Glucose Arterial Blood Ionized Calcium Urine pH Urine WBC (Auto) Urine Creatinine Acetaminophen 04/21/21 04/21/21 04/22/21 17:13 23:42 05:29 WBC RBC Hct MCV RDW Plt Count Lymph % (Auto) Seg Neutrophils % Seg Neuts % (Manual) Lymphocytes % (Manual) Monocytes % (Manual) Seg Neutrophils # Seg Neutrophils # Man Lymphocytes # (Manual) Monocytes # (Manual) ABG pH POC ABG pCO2 POC ABG pO2 ABG Hemoglobin ABG Oxyhemoglobin ABG Sodium ABG Potassium ABG Chloride ABG Glucose Carboxyhemoglobin Sodium Potassium Chloride BUN Creatinine Glucose POC Glucose 178 H 253 H 208 H Calcium Phosphorus Magnesium AST Total Creatine Kinase CK-MB (CK-2) Troponin T Albumin HDL Cholesterol TSH Free T3 Index Arterial Blood Glucose Arterial Blood Ionized Calcium Urine pH Urine WBC (Auto) Urine Creatinine Acetaminophen 04/22/21 04/22/21 04/22/21 08:00 08:00 12:06 WBC 12.9 H RBC Hct MCV RDW Plt Count Lymph % (Auto) Seg Neutrophils % Seg Neuts % (Manual) Lymphocytes % (Manual) Monocytes % (Manual) Seg Neutrophils # Seg Neutrophils # Man Lymphocytes # (Manual) Monocytes # (Manual) ABG pH POC ABG pCO2 POC ABG pO2 ABG Hemoglobin ABG Oxyhemoglobin ABG Sodium ABG Potassium ABG Chloride ABG Glucose Carboxyhemoglobin Sodium Potassium Chloride BUN 47 H Creatinine 1.9 H Glucose 252 H POC Glucose 298 H Calcium Phosphorus Magnesium AST Total Creatine Kinase CK-MB (CK-2) Troponin T Albumin HDL Cholesterol TSH Free T3 Index Arterial Blood Glucose Arterial Blood Ionized Calcium Urine pH Urine WBC (Auto) Urine Creatinine Acetaminophen 04/22/21 04/22/21 04/23/21 17:34 23:01 05:08 WBC RBC Hct MCV RDW Plt Count Lymph % (Auto) Seg Neutrophils % Seg Neuts % (Manual) Lymphocytes % (Manual) Monocytes % (Manual) Seg Neutrophils # Seg Neutrophils # Man Lymphocytes # (Manual) Monocytes # (Manual) ABG pH POC ABG pCO2 POC ABG pO2 ABG Hemoglobin ABG Oxyhemoglobin ABG Sodium ABG Potassium ABG Chloride ABG Glucose Carboxyhemoglobin Sodium Potassium Chloride BUN Creatinine Glucose POC Glucose 259 H 280 H 223 H Calcium Phosphorus Magnesium AST Total Creatine Kinase CK-MB (CK-2) Troponin T Albumin HDL Cholesterol TSH Free T3 Index Arterial Blood Glucose Arterial Blood Ionized Calcium Urine pH Urine WBC (Auto) Urine Creatinine Acetaminophen 04/23/21 04/23/21 04/23/21 07:02 11:57 17:33 WBC RBC Hct MCV RDW Plt Count Lymph % (Auto) Seg Neutrophils % Seg Neuts % (Manual) Lymphocytes % (Manual) Monocytes % (Manual) Seg Neutrophils # Seg Neutrophils # Man Lymphocytes # (Manual) Monocytes # (Manual) ABG pH POC ABG pCO2 POC ABG pO2 ABG Hemoglobin ABG Oxyhemoglobin ABG Sodium ABG Potassium ABG Chloride ABG Glucose Carboxyhemoglobin Sodium Potassium Chloride 97.7 L BUN 57 H Creatinine 2.0 H Glucose 253 H POC Glucose 310 H 235 H Calcium Phosphorus Magnesium AST Total Creatine Kinase CK-MB (CK-2) Troponin T Albumin HDL Cholesterol TSH Free T3 Index Arterial Blood Glucose Arterial Blood Ionized Calcium Urine pH Urine WBC (Auto) Urine Creatinine Acetaminophen 04/23/21 04/24/21 04/24/21 23:15 05:23 05:46 WBC RBC Hct MCV RDW Plt Count Lymph % (Auto) Seg Neutrophils % Seg Neuts % (Manual) Lymphocytes % (Manual) Monocytes % (Manual) Seg Neutrophils # Seg Neutrophils # Man Lymphocytes # (Manual) Monocytes # (Manual) ABG pH POC ABG pCO2 POC ABG pO2 ABG Hemoglobin ABG Oxyhemoglobin ABG Sodium ABG Potassium ABG Chloride ABG Glucose Carboxyhemoglobin Sodium Potassium 5.2 H D Chloride BUN 68 H Creatinine 2.3 H Glucose 277 H POC Glucose 197 H 274 H Calcium Phosphorus Magnesium AST Total Creatine Kinase CK-MB (CK-2) Troponin T Albumin HDL Cholesterol TSH Free T3 Index Arterial Blood Glucose Arterial Blood Ionized Calcium Urine pH Urine WBC (Auto) Urine Creatinine Acetaminophen 04/24/21 04/24/21 04/24/21 11:33 11:52 17:49 WBC RBC Hct MCV RDW Plt Count Lymph % (Auto) Seg Neutrophils % Seg Neuts % (Manual) Lymphocytes % (Manual) Monocytes % (Manual) Seg Neutrophils # Seg Neutrophils # Man Lymphocytes # (Manual) Monocytes # (Manual) ABG pH POC ABG pCO2 POC ABG pO2 72.7 L ABG Hemoglobin 11.6 L ABG Oxyhemoglobin 92.9 L ABG Sodium ABG Potassium ABG Chloride ABG Glucose 269 H Carboxyhemoglobin Sodium Potassium Chloride BUN Creatinine Glucose POC Glucose 223 H 252 H Calcium Phosphorus Magnesium AST Total Creatine Kinase CK-MB (CK-2) Troponin T Albumin HDL Cholesterol TSH Free T3 Index Arterial Blood Glucose 269 H Arterial Blood Ionized Calcium Urine pH Urine WBC (Auto) Urine Creatinine Acetaminophen 04/24/21 04/24/21 04/25/21 21:00 23:48 03:06 WBC RBC Hct MCV RDW Plt Count Lymph % (Auto) Seg Neutrophils % Seg Neuts % (Manual) Lymphocytes % (Manual) Monocytes % (Manual) Seg Neutrophils # Seg Neutrophils # Man Lymphocytes # (Manual) Monocytes # (Manual) ABG pH 7.521 H 7.451 H POC ABG pCO2 POC ABG pO2 80.7 L 77.1 L ABG Hemoglobin 10.4 L 11.2 L ABG Oxyhemoglobin ABG Sodium ABG Potassium ABG Chloride ABG Glucose 186 H 165 H Carboxyhemoglobin 0 L Sodium Potassium Chloride BUN Creatinine Glucose POC Glucose 141 H Calcium Phosphorus Magnesium AST Total Creatine Kinase CK-MB (CK-2) Troponin T Albumin HDL Cholesterol TSH Free T3 Index Arterial Blood Glucose 186 H 165 H Arterial Blood Ionized Calcium Urine pH Urine WBC (Auto) Urine Creatinine Acetaminophen 04/25/21 04/25/21 04/25/21 03:56 03:56 06:03 WBC 12.3 H RBC 3.40 L Hct MCV RDW Plt Count Lymph % (Auto) Seg Neutrophils % Seg Neuts % (Manual) Lymphocytes % (Manual) Monocytes % (Manual) Seg Neutrophils # Seg Neutrophils # Man Lymphocytes # (Manual) Monocytes # (Manual) ABG pH POC ABG pCO2 POC ABG pO2 ABG Hemoglobin ABG Oxyhemoglobin ABG Sodium ABG Potassium ABG Chloride ABG Glucose Carboxyhemoglobin Sodium Potassium Chloride BUN 78 H Creatinine 2.5 H Glucose 152 H POC Glucose 171 H Calcium Phosphorus Magnesium AST Total Creatine Kinase CK-MB (CK-2) Troponin T Albumin HDL Cholesterol TSH Free T3 Index Arterial Blood Glucose Arterial Blood Ionized Calcium Urine pH Urine WBC (Auto) Urine Creatinine Acetaminophen 04/25/21 04/25/21 04/26/21 11:43 15:37 00:05 WBC RBC Hct MCV RDW Plt Count Lymph % (Auto) Seg Neutrophils % Seg Neuts % (Manual) Lymphocytes % (Manual) Monocytes % (Manual) Seg Neutrophils # Seg Neutrophils # Man Lymphocytes # (Manual) Monocytes # (Manual) ABG pH POC ABG pCO2 POC ABG pO2 ABG Hemoglobin ABG Oxyhemoglobin ABG Sodium ABG Potassium ABG Chloride ABG Glucose Carboxyhemoglobin Sodium Potassium Chloride BUN Creatinine Glucose POC Glucose 181 H 167 H 144 H Calcium Phosphorus Magnesium AST Total Creatine Kinase CK-MB (CK-2) Troponin T Albumin HDL Cholesterol TSH Free T3 Index Arterial Blood Glucose Arterial Blood Ionized Calcium Urine pH Urine WBC (Auto) Urine Creatinine Acetaminophen 04/26/21 04/26/21 04/26/21 04:30 05:44 09:30 WBC RBC Hct MCV RDW Plt Count Lymph % (Auto) Seg Neutrophils % Seg Neuts % (Manual) Lymphocytes % (Manual) Monocytes % (Manual) Seg Neutrophils # Seg Neutrophils # Man Lymphocytes # (Manual) Monocytes # (Manual) ABG pH 7.529 H POC ABG pCO2 POC ABG pO2 66.1 L ABG Hemoglobin 11.2 L ABG Oxyhemoglobin 92.8 L ABG Sodium ABG Potassium ABG Chloride ABG Glucose 216 H Carboxyhemoglobin 0.3 L Sodium Potassium Chloride BUN 82 H Creatinine 2.7 H Glucose 238 H POC Glucose 202 H Calcium Phosphorus Magnesium AST Total Creatine Kinase CK-MB (CK-2) Troponin T Albumin HDL Cholesterol TSH Free T3 Index Arterial Blood Glucose 216 H Arterial Blood Ionized Calcium Urine pH Urine WBC (Auto) Urine Creatinine Acetaminophen 04/26/21 04/26/21 04/26/21 09:30 11:32 17:21 WBC 24.7 H RBC 3.32 L Hct MCV RDW Plt Count Lymph % (Auto) Seg Neutrophils % Seg Neuts % (Manual) Lymphocytes % (Manual) Monocytes % (Manual) Seg Neutrophils # Seg Neutrophils # Man Lymphocytes # (Manual) Monocytes # (Manual) ABG pH POC ABG pCO2 POC ABG pO2 ABG Hemoglobin ABG Oxyhemoglobin ABG Sodium ABG Potassium ABG Chloride ABG Glucose Carboxyhemoglobin Sodium Potassium Chloride BUN Creatinine Glucose POC Glucose 245 H 264 H Calcium Phosphorus Magnesium AST Total Creatine Kinase CK-MB (CK-2) Troponin T Albumin HDL Cholesterol TSH Free T3 Index Arterial Blood Glucose Arterial Blood Ionized Calcium Urine pH Urine WBC (Auto) Urine Creatinine Acetaminophen 04/26/21 04/27/21 04/27/21 23:18 04:23 04:54 WBC RBC Hct MCV RDW Plt Count Lymph % (Auto) Seg Neutrophils % Seg Neuts % (Manual) Lymphocytes % (Manual) Monocytes % (Manual) Seg Neutrophils # Seg Neutrophils # Man Lymphocytes # (Manual) Monocytes # (Manual) ABG pH 7.549 H POC ABG pCO2 30.0 L POC ABG pO2 64.9 L ABG Hemoglobin 11 L ABG Oxyhemoglobin 93.3 L ABG Sodium ABG Potassium ABG Chloride ABG Glucose 325 H Carboxyhemoglobin 0.3 L Sodium Potassium Chloride BUN Creatinine Glucose POC Glucose 201 H 298 H Calcium Phosphorus Magnesium AST Total Creatine Kinase CK-MB (CK-2) Troponin T Albumin HDL Cholesterol TSH Free T3 Index Arterial Blood Glucose 325 H Arterial Blood Ionized Calcium Urine pH Urine WBC (Auto) Urine Creatinine Acetaminophen 04/27/21 04/27/21 04/27/21 07:52 07:52 11:22 WBC 23.0 H RBC 3.32 L Hct MCV RDW 15.5 H Plt Count Lymph % (Auto) Seg Neutrophils % Seg Neuts % (Manual) Lymphocytes % (Manual) Monocytes % (Manual) Seg Neutrophils # Seg Neutrophils # Man Lymphocytes # (Manual) Monocytes # (Manual) ABG pH POC ABG pCO2 POC ABG pO2 ABG Hemoglobin ABG Oxyhemoglobin ABG Sodium ABG Potassium ABG Chloride ABG Glucose Carboxyhemoglobin Sodium Potassium 3.5 L Chloride BUN 90 H Creatinine 2.8 H Glucose 286 H POC Glucose 251 H Calcium Phosphorus Magnesium AST Total Creatine Kinase CK-MB (CK-2) Troponin T Albumin HDL Cholesterol TSH Free T3 Index Arterial Blood Glucose Arterial Blood Ionized Calcium Urine pH Urine WBC (Auto) Urine Creatinine Acetaminophen Chest x-ray: image reviewed Allied health notes reviewed: RT
--- NOTE | 2021-04-27 12:38 | Progress Note ---
Assessment and Plan No cardiac contraindications to trach/PEG at this time. No further bradycardia or additional arrhythmias noted. Continue BB as tolerated. Continue other present mgmt as per Primary teams. Nothing further to add from a Cardiology perspective presently. Will see on an as-needed basis. Please call if any questions regarding cardiac mgmt ([phone]). Pt seen in conjunction with Dr. Tejeda, who agrees with the assessment and plan of care. - Patient Problems (1) Acute respiratory failure Current Visit: Yes Status: Acute (2) Acute encephalopathy Current Visit: Yes Status: Acute (3) UTI (urinary tract infection) Current Visit: Yes Status: Acute (4) Rhabdomyolysis Current Visit: Yes Status: Acute Qualifiers: Encounter type: initial encounter (5) Acute kidney injury superimposed on CKD Current Visit: Yes Status: Acute (6) CAD (coronary artery disease) Current Visit: Yes Status: Chronic Qualifiers: Coronary Disease-Associated Artery/Lesion type: [place] artery [place] vs. transplanted heart: [place] heart (7) HTN (hypertension) Current Visit: Yes Status: Chronic Qualifiers: Hypertension type: essential hypertension Qualified Code(s): I10 - Essential (primary) hypertension (8) HLD (hyperlipidemia) Current Visit: Yes Status: Chronic Qualifiers: Hyperlipidemia type: mixed hyperlipidemia Qualified Code(s): E78.2 - Mixed hyperlipidemia (9) DM2 (diabetes mellitus, type 2) Current Visit: Yes Status: Chronic (10) Hypothyroidism Current Visit: Yes Status: Chronic (11) Atrial fibrillation Current Visit: Yes Status: Resolved Qualifiers: Atrial fibrillation type: paroxysmal Qualified Code(s): I48.0 - Paroxysmal atrial fibrillation Plan to address problem: < 24 hrs duration Subjective Date of service: 04/27/21 Principal diagnosis: AMS Interval history: No acute events overnight. Tele reviewed - SR 70-80s w/PACs. Objective Last Vital Signs Temp 101 F H 04/27/21 03:13 Pulse 80 04/27/21 12:00 Resp 24 04/27/21 12:00 BP 128/44 04/27/21 12:00 Pulse Ox 100 04/27/21 12:00 - Physical Examination General: Other (intubated, unresponsive) HEENT: Positive: Normocephaly Neck: Positive: neck supple, trachea midline. Negative: JVD/HJR Cardiac: Positive: Reg Rate and Rhythm, S1/S2 Lungs: Positive: Other (coarse anteriorly) Neuro: Positive: Other (intubated) Abdomen: Positive: Unremarkable Skin: Negative: Rash Musculoskeletal: No Fluid Collection Extremities: Present: lower extr. pulses, edema - Labs and Meds CBC 04/27/21 Range/Units 07:52 WBC 23.0 H (4.5-11.0) K/mm3 RBC 3.32 L (3.65-5.03) M/mm3 Hgb 10.3 (10.1-14.3) gm/dl Hct 32.3 (30.3-42.9) % Plt Count 290 (140-440) K/mm3 Comprehensive Metabolic Panel 04/27/21 Range/Units 07:52 Sodium 141 (137-145) mmol/L Potassium 3.5 L (3.6-5.0) mmol/L Chloride 102.7 (98-107) mmol/L Carbon Dioxide 26 (22-30) mmol/L BUN 90 H (7-17) mg/dL Creatinine 2.8 H (0.6-1.2) mg/dL Glucose 286 H (65-100) mg/dL Calcium 9.1 (8.4-10.2) mg/dL - Imaging and Cardiology EKG: report reviewed, image reviewed Echo: report reviewed (04/15/2021 - EF 45-50%, mild concentric LVH, no LV thrombus, no significant valvular abnormalities) Cardiac cath: report reviewed (08/2017 - multivessal CAD (pLAD 70%, mid-distal LAD 70%, diag ostium 80%, Cfx/obtuse donovan 60%, RCA 80%, EF 60%, LVEDP 12mmHg) - Telemetry EKG Rhythm: Sinus Rhythm - EKG Sinus rhythms and dysrhythmias: sinus rhythm AV and intraventricular conduction: left bundle branch block - Allied health notes Allied health notes reviewed: nursing
[2021-04-27] MEDS ORDERED: POTASSIUM CHLORIDE 20 MEQ PACKET FEEDTUBE ONE (13:00)
--- NOTE | 2021-04-27 15:38 | Consultation ---
History of Present Illness - Reason for Consult Consult date: 04/27/21 Sepsis Requesting physician: RUDOLPH MARIE - History of Present Illness The patient is an 80-year-old female with diabetes mellitus, coronary artery disease, hypertension, breast cancer status post mastectomy, TIA was admitted to the hospital on 04/16/2021 with altered mental status and hypoglycemia. Due to encephalopathy, she was on mechanical ventilation. Initially, she had some fev er and was treated with antibiotics. Urine culture grew Pseudomonas. Since yesterday, she has been spiking fevers again. Infectious diseases was consulted for additional evaluation. Labs show leukocytosis. Patient is currently intubated, remains on the vent, is awake. Review of Systems: Limited due to vent Past History Past Medical History: other (See HPI) Past Surgical History: Other (Unknown) Social history: no significant social history Family history: no significant family history Medications and Allergies Allergies Allergy/AdvReac Type Severity Reaction Status Date / Time No Known Allergies Allergy Unverified 04/15/21 17:41 Home Medications Medication Instructions Recorded Confirmed Last Taken Type Betaxolol HCl [Betoptic S 0.25% 1 drop OU BID 04/16/21 04/16/21 Unknown History SUSP] Bimatoprost [Lumigan 0.01%] 1 drop OU QPM 04/16/21 04/16/21 Unknown History Brimonidine Tartrate [Brimonidine 5 ml OU BID 04/16/21 04/16/21 Unknown History Tartrate 0.2%] Furosemide [Lasix TAB] 40 mg PO QDAY 04/16/21 04/16/21 Unknown History Gabapentin [Neurontin] 300 mg PO Q8HR 04/16/21 04/16/21 Unknown History HYDROcodone/APAP 10-325 [Corinne 1 each PO Q6HR PRN 04/16/21 04/16/21 Unknown History 10/325] Hydralazine HCl 50 mg PO Q4HR 04/16/21 04/16/21 Unknown History Insulin Aspart Prot/Insuln Asp 52 units SQ HS 04/16/21 04/16/21 Unknown History [Novolog Mix 70-30 Flexpen] Metoprolol [Lopressor] 25 mg PO BID 04/16/21 04/16/21 Unknown History Pravastatin [Pravachol] 20 mg PO QHS 04/16/21 04/16/21 Unknown History Promethazine [Phenergan] 25 mg PO Q6HR 04/16/21 04/16/21 Unknown History allopurinoL [Zyloprim] 150 mg PO QDAY 04/16/21 04/16/21 Unknown History Active Meds: Active Medications Acetaminophen (Acetaminophen 325 Mg Tab) 650 mg PO Q6H PRN PRN Reason: Pain MILD(1-3)/Fever >100.5/SEXTON Last Admin: 04/27/21 12:13 Dose: 650 mg Documented by: Albuterol/Ipratropium (Ipratropium/Albuterol Sulfate 3 Ml Ampul.Neb) 1 ampul IH Q6HRT [facility] Last Admin: 04/27/21 13:55 Dose: 1 ampul Documented by: Amlodipine Besylate (Amlodipine 10 Mg Tab) 10 mg PO DAILY [facility] Last Admin: 04/27/21 09:15 Dose: 10 mg Documented by: Lipase/Protease/Amylase (Lipase 10,500/Protease 25,000/Amylase 43,750 (Units) Dr Simpson) 1 each FEEDTUBE PRN PRN PRN Reason: For Clogged Feeding Tube Aspirin (Aspirin 81 Mg Tab Chew) 81 mg PO QDAY [facility] Last Admin: 04/27/21 09:15 Dose: 81 mg Documented by: Bisacodyl (Bisacodyl 10 Mg Rect Supp) 10 mg SD QDAY PRN PRN Reason: Constipation Last Admin: 04/17/21 13:46 Dose: 10 mg Documented by: Brimonidine Tartrate (Brimonidine 0.15% Oph Soln) 1 drops OU BID [facility] Last Admin: 04/27/21 09:17 Dose: 1 drops Documented by: Clopidogrel Bisulfate (Clopidogrel 75 Mg Tab) 75 mg PO QDAY [facility] Last Admin: 04/27/21 09:15 Dose: 75 mg Documented by: Epinephrine (Epinephrine Racemic 2.25% 0.5ml Nebu) 0.5 ml IH Q4HRT PRN PRN Reason: Shortness Of Breath Famotidine (Famotidine 20 Mg Tab) 20 mg PO DAILY [facility] Last Admin: 04/27/21 09:15 Dose: 20 mg Documented by: Fentanyl (Fentanyl 100 Mcg/2 Ml Inj) 50 mcg IV Q10MIN PRN PRN Reason: ANALGESIA Heparin Sodium (Porcine) (Heparin 5,000 Unit/1 Ml Vial) 5,000 unit SUB-Q Q12HR [facility] Last Admin: 04/27/21 09:15 Dose: 5,000 unit Documented by: Hydralazine HCl (Hydralazine 20 Mg/1 Ml Inj) 10 mg IV Q4HR PRN PRN Reason: Hypertension Last Admin: 04/24/21 05:25 Dose: 10 mg Documented by: Hydralazine HCl (Hydralazine 100 Mg Tab) 100 mg PO TID [facility] Last Admin: 04/27/21 13:01 Dose: 100 mg Documented by: Hydrophilic Ointment (Lip Therapy Vaseline) 1 applic TP Q2HR PRN PRN Reason: Dry Lips Fentanyl Citrate (Fentanyl Drip Premix) 2,000 mcg in 100 mls @ 4.765 mls/hr IV TITR [facility]; Protocol Last Titration: 04/25/21 09:15 Dose: 0 mcg/kg/hr, 0 mls/hr Documented by: Propofol (Diprivan 10 Mg/Ml) 1,000 mg in 100 mls @ 2.859 mls/hr IV TITR [facility]; Protocol Last Titration: 04/25/21 09:10 Dose: 0 mcg/kg/min, 0 mls/hr Documented by: Cefepime HCl (Cefepime/Ns 2 Gm/100 Ml) 2 gm in 100 mls @ 200 mls/hr IV Q24H [facility]; Protocol Last Admin: 04/27/21 09:16 Dose: 200 mls/hr Documented by: Insulin Glargine (Insulin Glargine 100 Units/Ml) 40 units SUB-Q QAMDIAB [facility] Insulin Human Lispro (Insulin Lispro 100 Unit/Ml) 0 unit SUB-Q Q6HR [facility]; Protocol Last Admin: 04/27/21 11:52 Dose: 6 unit Documented by: Latanoprost (Latanoprost 0.005% Ophth Soln 2.5 Ml) 1 drops OU QPM [facility] Last Admin: 04/26/21 17:54 Dose: 1 drops Documented by: Levothyroxine Sodium (Levothyroxine 25 Mcg Tab) 25 mcg PO DAILY@0600 [facility] Last Admin: 04/27/21 06:05 Dose: 25 mcg Documented by: Lorazepam (Lorazepam 2 Mg/Ml Vial) 1 mg IV Q12HR PRN PRN Reason: Agitation Metoprolol Tartrate (Metoprolol Tartrate 25 Mg Tab) 25 mg PO BID [facility] Last Admin: 04/27/21 09:14 Dose: 25 mg Documented by: Multi-Ingred Cream/Lotion/Oil/Oint (Mineral Oil/Petrolatum, White Ophth Oint 3.5 Gm) 1 applic OU Q4HR PRN PRN Reason: Dry Eye(s) Last Admin: 04/26/21 10:05 Dose: 1 applic Documented by: Pravastatin Sodium (Pravastatin 20 Mg Tab) 20 mg PO QHS [facility] Last Admin: 04/26/21 21:19 Dose: 20 mg Documented by: Scopolamine (Scopolamine Transdermal Patch 72 Hr) 1 each TD Q3D [facility] Last Admin: 04/26/21 10:06 Dose: 1 each Documented by: Simple Syrup (Simple Syrup 15 Ml) 15 ml FEEDTUBE PRN PRN PRN Reason: Hypoglycemia Simple Syrup (Simple Syrup 15 Ml) 30 ml FEEDTUBE PRN PRN PRN Reason: Hypoglycemia Sodium Bicarbonate (Sodium Bicarbonate 325 Mg Tab) 325 mg FEEDTUBE PRN PRN PRN Reason: For Clogged Feeding Tube Sodium Chloride (Sodium Chloride 0.9% 10 Ml Flush Syringe) 10 ml IV BID [facility] Last Admin: 04/27/21 13:02 Dose: 10 ml Documented by: Sodium Chloride (Sodium Chloride 0.9% 10 Ml Flush Syringe) 10 ml IV PRN PRN PRN Reason: LINE FLUSH Last Admin: 04/24/21 05:27 Dose: 10 ml Documented by: Tamsulosin HCl (Tamsulosin 0.4 Mg Cap) 0.4 mg PO QDAY [facility] Last Admin: 04/27/21 09:15 Dose: 0.4 mg Documented by: Timolol Maleate (Timolol 0.5% Ophth Soln 5 Ml) 1 drops OU QDAY [facility] Last Admin: 04/27/21 09:17 Dose: 1 drops Documented by: Physical Examination - Physical Exam Narrative exam: Physical Exam: Constitutional: Awake, intubated, on the vent Head, Ears, Nose: Normocephalic, atraumatic. External ears, nose normal Eyes: Conjunctivae/corneas clear. No icterus. No ptosis. Neck: intubated Oral: intubated Cardiovascular: S1, S2 + Respiratory: AE fair bilaterally and equal GI: Soft, bowel sounds + Musculoskeletal: No pedal edema, no cyanosis. Skin: No rash or abscess Hem/Lymphatic: No palpable cervical or supraclavicular nodes. No lymphangitis Psych: no agitation Neurological: Awake, intubated, on the vent, exam limited - Constitutional Vitals: Vital Signs Temp Pulse Resp BP Pulse Ox 100.4 F H 83 21 132/50 100 04/27/21 12:00 04/27/21 15:00 04/27/21 15:00 04/27/21 15:00 04/27/21 12:00 Temperature -Last 24 Hours Temperature 100.4 F Temperature 101 F Temperature 100.6 F Temperature 100.8 F Temperature 98.8 F Results - Labs CBC & Chem 7: 04/27/21 07:52 04/27/21 07:52 Labs: Abnormal lab results 04/26/21 04/26/21 04/27/21 Range/Units 17:21 23:18 04:23 WBC (4.5-11.0) K/mm3 RBC (3.65-5.03) M/mm3 RDW (13.2-15.2) % ABG pH 7.549 H (7.320-7.450) POC ABG pCO2 30.0 L (32.0-48.0) mmHg POC ABG pO2 64.9 L (83-108) mmHg ABG Hemoglobin 11 L (12.0-17.5) ABG Oxyhemoglobin 93.3 L (94-98) ABG Glucose 325 H (65-95) mg/dL Carboxyhemoglobin 0.3 L (0.5-1.5) Potassium (3.6-5.0) mmol/L BUN (7-17) mg/dL Creatinine (0.6-1.2) mg/dL Glucose (65-100) mg/dL POC Glucose 264 H 201 H (70-105) mg/dL Arterial Blood Glucose 325 H (65-95) mg/dL 04/27/21 04/27/21 04/27/21 Range/Units 04:54 07:52 07:52 WBC 23.0 H (4.5-11.0) K/mm3 RBC 3.32 L (3.65-5.03) M/mm3 RDW 15.5 H (13.2-15.2) % ABG pH (7.320-7.450) POC ABG pCO2 (32.0-48.0) mmHg POC ABG pO2 (83-108) mmHg ABG Hemoglobin (12.0-17.5) ABG Oxyhemoglobin (94-98) ABG Glucose (65-95) mg/dL Carboxyhemoglobin (0.5-1.5) Potassium 3.5 L (3.6-5.0) mmol/L BUN 90 H (7-17) mg/dL Creatinine 2.8 H (0.6-1.2) mg/dL Glucose 286 H (65-100) mg/dL POC Glucose 298 H (70-105) mg/dL Arterial Blood Glucose (65-95) mg/dL 04/27/21 Range/Units 11:22 WBC (4.5-11.0) K/mm3 RBC (3.65-5.03) M/mm3 RDW (13.2-15.2) % ABG pH (7.320-7.450) POC ABG pCO2 (32.0-48.0) mmHg POC ABG pO2 (83-108) mmHg ABG Hemoglobin (12.0-17.5) ABG Oxyhemoglobin (94-98) ABG Glucose (65-95) mg/dL Carboxyhemoglobin (0.5-1.5) Potassium (3.6-5.0) mmol/L BUN (7-17) mg/dL Creatinine (0.6-1.2) mg/dL Glucose (65-100) mg/dL POC Glucose 251 H (70-105) mg/dL Arterial Blood Glucose (65-95) mg/dL - Imaging and Cardiology Chest x-ray: report reviewed, image reviewed (ET tube +, no pneumonia) Assessment and Plan Cultures: 04/15/2021 blood culture: No growth 04/15/2021 sputum culture: Contaminated 04/16/2021 urine culture: Mixed nilesh 04/16/2021 tracheal aspirate culture: Usual respiratory nilesh 04/18/2021 urine culture: 10K-100 K Pseudomonas aeruginosa 04/18/2021 blood culture: No growth 04/26/2021 blood culture: No growth COVID-19 PCR: Negative A/P: 80-year-old female with diabetes mellitus, coronary artery disease, hypertension, breast cancer status post mastectomy, TIA was admitted to the hospital on 04/16/2021 with altered mental status and hypoglycemia: #Sepsis: Etiology unclear. Prolonged mechanical ventilation and ICU stay. Rule out bacteremia, new UTI. Chest x-ray from today does not reveal any pneumonia. ? some leucocytosis related to steroid use from 04/21/2021 to 04/24/2021. Monitor WBC #Acute encephalopathy: Metabolic likely. #UTI with Pseudomonas: Recently treated with IV cefepime. #ROJELIO: Renally dose antibiotics. Recs: -Continue cefepime, vancomycin, renally dosed for now -Follow-up new cultures -If leukocytosis persists, obtain CT chest, abdomen and pelvis without contrast to evaluate -LFTs ordered for AM Cash Parks MD, FACP [facility] ([facility] O: [phone] F: [phone]
--- NOTE | 2021-04-27 15:39 | XRay Report ---
ABDOMEN 1 VIEW 04/27/2021 1:35 PM INDICATION / CLINICAL INFORMATION: Tube placement. COMPARISON: 04/21/21. FINDINGS: TUBES / LINES: There is a weighted enteric feeding tube with the tip overlying the gastric body. BOWEL GAS PATTERN: No significant abnormality. FREE AIR / EXTRALUMINAL GAS: None. ADDITIONAL FINDINGS: No significant additional findings. IMPRESSION: Feeding tube tip overlies the gastric body. Signer Name: Roly Rivers MD Signed: 04/27/2021 3:34 PM Workstation Name: [id number]
--- NOTE | 2021-04-27 15:39 | XRay Report ---
CHEST 1 VIEW INDICATION: resp failure, aspiration. COMPARISON: Yesterday FINDINGS: Support devices: Endotracheal tube is unchanged. Feeding tube terminates in the distal esophagus. Adv ancement by at least 15 cm is recommended. Heart: Within normal limits. Lungs/Pleura: Patchy airspace disease at the left lung base is unchanged. The lungs are clear otherwi se. Additional findings: None. IMPRESSION: The feeding tube terminates in the distal esophagus. Stable airspace opacity in the left lower lobe. Signer Name: Josef Dillon Jr, MD Signed: 04/27/2021 3:34 PM Workstation Name: [id number]
[2021-04-27] MEDS: LATANOPROST 0.005% OPHTH SOLN 2.5 ML OU SCH (18:06)
[2021-04-27] MEDS: PRAVASTATIN 20 MG TAB PO SCH (21:06)
[2021-04-28] MEDS: IPRATROPIUM/ALBUTEROL SULFATE 3 ML AMPUL.NEB IH SCH ×4 (01:57→20:23)
[2021-04-28 05:05] LABS: Hematocrit 29.5 % (30.3-42.9); Hemoglobin 9.7 gm/dl (10.1-14.3); Mean Corpuscular HGB Conc 33 % (30-34); Mean Corpuscular Volume 97 fl (79-97); Platelet Count 271 K/mm3 (140-440); Red Blood Count 3.03 M/mm3 (3.65-5.03); Red Cell Distribution Width 15.2 % (13.2-15.2)
[2021-04-28 05:21] LABS: Alanine Aminotransferase 64 units/L (7-56); Albumin 2.6 g/dL (3.9-5); BUN/Creatinine Ratio 33; Blood Urea Nitrogen 101 mg/dL (7-17); Calcium 9.5 mg/dL (8.4-10.2); Hemolysis Index 4
[2021-04-28 05:55] LABS: Bilirubin,Direct < 0.2 mg/dL (0-0.2)
[2021-04-28] MEDS: LEVOTHYROXINE 25 MCG TAB PO SCH (06:31)
[2021-04-28] MEDS: INSULIN LISPRO 100 UNIT/ML SUB-Q SCH ×3 (06:31→18:24)
--- NOTE | 2021-04-28 08:47 | Progress Note ---
Assessment and Plan 1. Acute kidney injury: Vasomotor ROJELIO. ATN likely. Renal US negative for hydro. Baseline renal function is unknown. Monitor renal function. Non-oliguric. Now has hui catheter. Creatinine level continue to increase. Renal prognosis is guarded. Avoid nephrotoxic agents. Meds dosage based on GFR. 2. FEN: Hypokalemia, replete K as needed, monitor. Hyponatremia, improved. Monitor lytes and volume status. 3. Acute hypoxemic respiratory failure: Extubated, re-intubated 04/24. 4. Acute encephalopathy: Hypoglycemia. MRI brain negative. Followed by Neuro. 5. Pseudomonas UTI. 6. Hypertension. 7. DM type 2. 8. Mild rhabdomyolysis. 9. Mildly complex R renal cyst. Subjective: Patient was seen and examined at the bedside. Examination: General appearance: well-developed, appears stated age, intubated on vent HEENT: BRUCE, atraumatic Neck: trachea midline Respiratory: Coarse breath sounds heard Heart: S1S2, no murmur Abdomen: soft, obese, bowel sounds heard, NT Integumentary: no obvious rash Neurologic: stuporous Ext: no edema noted : Hui catheter Subjective Date of service: 04/28/21 Principal diagnosis: AMS Objective - Vital Signs Vital signs: Vital Signs - 12hr 04/27/21 04/27/21 04/27/21 21:00 21:05 21:31 Temperature Pulse Rate 85 87 81 Pulse Rate [ Bilateral] Pulse Rate [ From Monitor] Respiratory 16 16 Rate Respiratory Rate [Bilateral ] Blood Pressure 123/64 123/64 116/52 O2 Sat by Pulse 92 95 Oximetry 04/27/21 04/27/21 04/27/21 21:35 22:01 22:30 Temperature Pulse Rate 83 75 77 Pulse Rate [ Bilateral] Pulse Rate [ From Monitor] Respiratory 20 21 12 Rate Respiratory Rate [Bilateral ] Blood Pressure 116/52 113/45 101/51 O2 Sat by Pulse 93 94 88 Oximetry 04/27/21 04/27/21 04/27/21 23:01 23:14 23:31 Temperature 98.4 F Pulse Rate 76 84 Pulse Rate [ Bilateral] Pulse Rate [ From Monitor] Respiratory 19 17 Rate Respiratory Rate [Bilateral ] Blood Pressure 111/60 134/56 O2 Sat by Pulse 95 96 Oximetry 04/27/21 04/28/21 04/28/21 23:56 00:00 00:01 Temperature Pulse Rate 79 79 82 Pulse Rate [ Bilateral] Pulse Rate [ 79 From Monitor] Respiratory 15 18 Rate Respiratory Rate [Bilateral ] Blood Pressure 134/56 137/47 O2 Sat by Pulse 93 90 91 Oximetry 04/28/21 04/28/21 04/28/21 00:31 01:00 01:30 Temperature Pulse Rate 77 81 89 Pulse Rate [ Bilateral] Pulse Rate [ From Monitor] Respiratory 17 17 18 Rate Respiratory Rate [Bilateral ] Blood Pressure 137/47 137/60 122/63 O2 Sat by Pulse 89 93 94 Oximetry 04/28/21 04/28/21 04/28/21 01:58 02:00 02:30 Temperature Pulse Rate 84 86 Pulse Rate [ 88 Bilateral] Pulse Rate [ From Monitor] Respiratory 17 25 H Rate Respiratory 22 Rate [Bilateral ] Blood Pressure 110/56 83/64 O2 Sat by Pulse 90 94 Oximetry 04/28/21 04/28/21 04/28/21 03:00 03:08 03:30 Temperature 98.5 F Pulse Rate 91 H 86 Pulse Rate [ Bilateral] Pulse Rate [ From Monitor] Respiratory 20 21 Rate Respiratory Rate [Bilateral ] Blood Pressure 114/58 109/49 O2 Sat by Pulse 99 98 Oximetry 04/28/21 04/28/21 04/28/21 03:49 04:00 04:31 Temperature Pulse Rate 85 81 82 Pulse Rate [ Bilateral] Pulse Rate [ 88 From Monitor] Respiratory 18 17 Rate Respiratory Rate [Bilateral ] Blood Pressure 109/49 123/48 124/55 O2 Sat by Pulse 97 99 94 Oximetry 04/28/21 04/28/21 04/28/21 05:01 05:31 06:01 Temperature Pulse Rate 91 H 91 H 83 Pulse Rate [ Bilateral] Pulse Rate [ From Monitor] Respiratory 20 25 H 16 Rate Respiratory Rate [Bilateral ] Blood Pressure 119/43 107/47 94/49 O2 Sat by Pulse 100 100 100 Oximetry 04/28/21 04/28/21 04/28/21 06:30 07:00 07:30 Temperature Pulse Rate 84 83 87 Pulse Rate [ Bilateral] Pulse Rate [ From Monitor] Respiratory 21 21 22 Rate Respiratory Rate [Bilateral ] Blood Pressure 121/48 89/52 O2 Sat by Pulse 98 100 98 Oximetry 04/28/21 04/28/21 04/28/21 07:42 07:49 08:00 Temperature Pulse Rate 83 82 Pulse Rate [ 80 Bilateral] Pulse Rate [ 77 From Monitor] Respiratory 21 Rate Respiratory 20 Rate [Bilateral ] Blood Pressure 94/49 120/68 O2 Sat by Pulse 100 97 Oximetry - Lab 04/28/21 04:13 04/28/21 04:13 Most recent lab results ABG pH 7.507 (7.320-7.450) H 04/28/21 03:14 ABG O2 Saturation 92.4 (0-100) 04/28/21 03:14 Calcium 9.5 mg/dL (8.4-10.2) 04/28/21 04:13 Phosphorus 2.60 mg/dL (2.5-4.5) 04/22/21 08:00 Magnesium 2.10 mg/dL (1.7-2.3) 04/23/21 07:02 Urine Creatinine 24.4 mg/dL (0.1-20.0) H 04/16/21 00:12 Urine Sodium 97 mmol/L 04/16/21 00:12 Medications & Allergies - Medications Allergies/Adverse Reactions: Allergies No Known Allergies Allergy (Unverified 04/15/21 17:41) Home Medications: Home Medications Medication Instructions Recorded Confirmed Last Taken Type Betaxolol HCl [Betoptic S 0.25% 1 drop OU BID 04/16/21 04/16/21 Unknown History SUSP] Bimatoprost [Lumigan 0.01%] 1 drop OU QPM 04/16/21 04/16/21 Unknown History Brimonidine Tartrate [Brimonidine 5 ml OU BID 04/16/21 04/16/21 Unknown History Tartrate 0.2%] Furosemide [Lasix TAB] 40 mg PO QDAY 04/16/21 04/16/21 Unknown History Gabapentin [Neurontin] 300 mg PO Q8HR 04/16/21 04/16/21 Unknown History HYDROcodone/APAP 10-325 [[place] 1 each PO Q6HR PRN 04/16/21 04/16/21 Unknown History 10/325] Hydralazine HCl 50 mg PO Q4HR 04/16/21 04/16/21 Unknown History Insulin Aspart Prot/Insuln Asp 52 units SQ HS 04/16/21 04/16/21 Unknown History [Novolog Mix 70-30 Flexpen] Metoprolol [Lopressor] 25 mg PO BID 04/16/21 04/16/21 Unknown History Pravastatin [Pravachol] 20 mg PO QHS 04/16/21 04/16/21 Unknown History Promethazine [Phenergan] 25 mg PO Q6HR 04/16/21 04/16/21 Unknown History allopurinoL [Zyloprim] 150 mg PO QDAY 04/16/21 04/16/21 Unknown History Active Medications: Generic Name Dose Route Start Last Admin Trade Name Freq PRN Reason Stop Dose Admin Acetaminophen 650 mg 04/15/21 19:11 04/27/21 12:13 Acetaminophen 325 Mg Tab PO 650 mg Q6H PRN Administration Pain MILD(1-3)/Fever >100.5/SEXTON Albuterol/Ipratropium 1 ampul 04/24/21 14:00 04/28/21 07:49 Ipratropium/Albuterol Sulfate 3 Ml Ampul.Neb IH 1 ampul Q6HRT WOLFGANG Administration Amlodipine Besylate 10 mg 04/25/21 10:00 04/27/21 09:15 Amlodipine 10 Mg Tab PO 10 mg DAILY WOLFGANG Administration Lipase/Protease/Amylase 1 each 04/16/21 12:52 Lipase 10,500/Protease 25,000/Amylase 43,750 (Units) Dr Simpson FEEDTUBE PRN PRN For Clogged Feeding Tube Aspirin 81 mg 04/25/21 10:00 04/27/21 09:15 Aspirin 81 Mg Tab Chew PO 81 mg QDAY WOLFGANG Administration Bisacodyl 10 mg 04/17/21 11:01 04/17/21 13:46 Bisacodyl 10 Mg Rect Supp VA 10 mg QDAY PRN Administration Constipation Brimonidine Tartrate 1 drops 04/17/21 22:00 04/27/21 21:06 Brimonidine 0.15% Ophth Soln OU 1 drops BID WOLFGANG Administration Clopidogrel Bisulfate 75 mg 04/25/21 10:00 04/27/21 09:15 Clopidogrel 75 Mg Tab PO 75 mg QDAY WOLFGANG Administration Epinephrine 0.5 ml 04/21/21 12:56 Epinephrine Racemic 2.25% 0.5ml Nebu IH Q4HRT PRN Shortness Of Breath Famotidine 20 mg 04/17/21 10:00 04/27/21 09:15 Famotidine 20 Mg Tab PO 20 mg DAILY WOLFGANG Administration Fentanyl 50 mcg 04/24/21 13:03 Fentanyl 100 Mcg/2 Ml Inj IV Q10MIN PRN ANALGESIA Heparin Sodium (Porcine) 5,000 unit 04/15/21 22:00 04/27/21 21:16 Heparin 5,000 Unit/1 Ml Vial SUB-Q 5,000 unit Q12HR WOLFGANG Administration Hydralazine HCl 10 mg 04/16/21 18:00 04/24/21 05:25 Hydralazine 20 Mg/1 Ml Inj IV 10 mg Q4HR PRN Administration Hypertension Hydralazine HCl 100 mg 04/21/21 14:00 04/27/21 21:05 Hydralazine 100 Mg Tab PO 100 mg TID WOLFGANG Administration Hydrophilic Ointment 1 applic 04/15/21 17:24 Lip Therapy Vaseline TP Q2HR PRN Dry Lips Fentanyl Citrate 2,000 mcg in 100 mls @ 4.765 mls/hr 04/24/21 14:00 04/25/21 09:15 Fentanyl Drip Premix IV 0 mcg/kg/hr TITR WOLFGANG 0 mls/hr Titration Protocol 1 MCG/KG/HR Propofol 1,000 mg in 100 mls @ 2.859 mls/hr 04/24/21 14:00 04/25/21 09:10 Diprivan 10 Mg/Ml IV 0 mcg/kg/min TITR WOLFGANG 0 mls/hr Titration Protocol 5 MCG/KG/MIN Cefepime HCl 2 gm in 100 mls @ 200 mls/hr 04/27/21 10:00 04/27/21 09:16 Cefepime/Ns 2 Gm/100 Ml IV 200 mls/hr Q24H [facility] [place] Administration Protocol Insulin Glargine 40 units 04/28/21 08:00 Insulin Glargine 100 Units/Ml SUB-Q QAMDIAB [facility] [place] Insulin Human Lispro 0 unit 04/16/21 15:00 04/28/21 06:31 Insulin Lispro 100 Unit/Ml SUB-Q 6 unit Q6HR [facility] [place] Administration Protocol Latanoprost 1 drops 04/17/21 18:00 04/27/21 18:06 Latanoprost 0.005% Ophth Soln 2.5 Ml OU 1 drops QPM WOLFGANG Administration Levothyroxine Sodium 25 mcg 04/19/21 06:00 04/28/21 06:31 Levothyroxine 25 Mcg Tab PO 25 mcg DAILY@0600 WOLFGANG Administration Lorazepam 1 mg 04/24/21 11:32 Lorazepam 2 Mg/Ml Vial IV Q12HR PRN Agitation Metoprolol Tartrate 25 mg 04/19/21 10:00 04/27/21 21:05 Metoprolol Tartrate 25 Mg Tab PO 25 mg BID WOLFGANG Administration Multi-Ingred Cream/Lotion/Oil/Oint 1 applic 04/15/21 17:24 04/26/21 10:05 Mineral Oil/Petrolatum, White Ophth Oint 3.5 Gm OU 1 applic Q4HR PRN Administration Dry Eye(s) Pravastatin Sodium 20 mg 04/19/21 22:00 04/27/21 21:06 Pravastatin 20 Mg Tab PO 20 mg QHS WOLFGANG Administration Scopolamine 1 each 04/20/21 18:00 04/26/21 10:06 Scopolamine Transdermal Patch 72 Hr TD 1 each Q3D WOLFGANG Administration Simple Syrup 15 ml 04/16/21 12:52 Simple Syrup 15 Ml FEEDTUBE PRN PRN Hypoglycemia Simple Syrup 30 ml 04/16/21 12:52 Simple Syrup 15 Ml FEEDTUBE PRN PRN Hypoglycemia Sodium Bicarbonate 325 mg 04/16/21 12:52 Sodium Bicarbonate 325 Mg Tab FEEDTUBE PRN PRN For Clogged Feeding Tube Sodium Chloride 10 ml 04/15/21 22:00 04/27/21 13:02 Sodium Chloride 0.9% 10 Ml Flush Syringe IV 10 ml BID WOLFGANG Administration Sodium Chloride 10 ml 04/15/21 19:11 04/24/21 05:27 Sodium Chloride 0.9% 10 Ml Flush Syringe IV 10 ml PRN PRN Administration LINE FLUSH Tamsulosin HCl 0.4 mg 04/25/21 14:00 04/27/21 09:15 Tamsulosin 0.4 Mg Cap PO 0.4 mg QDAY WOLFGANG Administration Timolol Maleate 1 drops 04/19/21 10:00 04/27/21 09:17 Timolol 0.5% Ophth Soln 5 Ml OU 1 drops QDAY WOLFGANG Administration
[2021-04-28] MEDS: TAMSULOSIN 0.4 MG CAP PO SCH (09:05)
[2021-04-28] MEDS: CLOPIDOGREL 75 MG TAB PO SCH (09:05)
[2021-04-28] MEDS: amLODIPine 10 MG TAB PO SCH (09:05)
[2021-04-28] MEDS: FAMOTIDINE 20 MG TAB PO SCH (09:05)
[2021-04-28] MEDS: METOPROLOL TARTRATE 25 MG TAB PO SCH ×2 (09:05→21:05)
[2021-04-28] MEDS: hydrALAZINE 100 MG TAB PO SCH ×3 (09:05→20:07)
[2021-04-28] MEDS: INSULIN GLARGINE 100 UNITS/ML SUB-Q SCH (09:06)
[2021-04-28] MEDS: ASPIRIN 81 MG TAB CHEW PO SCH (09:06)
[2021-04-28] MEDS: HEPARIN 5,000 UNIT/1 ML VIAL SUB-Q SCH ×2 (09:06→21:05)
[2021-04-28] MEDS: TIMOLOL 0.5% OPHTH SOLN 5 ML OU SCH (09:07)
[2021-04-28] MEDS: BRIMONIDINE 0.15% OPHTH SOLN OU SCH ×2 (09:07→21:05)
[2021-04-28] MEDS: CEFEPIME/NS 2 GM/100 ML 2 GM/100 ML BAG IV SCH (09:10)
--- NOTE | 2021-04-28 10:38 | Progress Note ---
Assessment and Plan Cultures: 04/15/2021 blood culture: No growth 04/15/2021 sputum culture: Contaminated 04/16/2021 urine culture: Mixed nilesh 04/16/2021 tracheal aspirate culture: Usual respiratory nilesh 04/18/2021 urine culture: 10K-100 K Pseudomonas aeruginosa 04/18/2021 blood culture: No growth 04/24/2021 resp culture: usual resp nilesh 04/26/2021 blood culture: No growth COVID-19 PCR: Negative A/P: 80-year-old female with diabetes mellitus, coronary artery disease, hypertension, breast cancer status post mastectomy, TIA was admitted to the hospital on 04/16/2021 with altered mental status and hypoglycemia: #Sepsis: Etiology unclear. Prolonged mechanical ventilation and ICU stay. Rule out bacteremia, new UTI. Chest x-ray from today does not reveal any pneumonia. ? some leucocytosis related to steroid use from 04/21/2021 to 04/24/2021. Monitor WBC, #Acute encephalopathy: Metabolic likely. #UTI with Pseudomonas: Recently treated with IV cefepime. #ROJELIO: Renally dose antibiotics. Recs: -WBC downtrending, continue cefepime, vancomycin, renally dosed for now -Follow-up new cultures, if negative at 48 hours, plan to stop vancomycin -monitor WBC Cash Parks MD, FACP [facility] O: [phone] F: [phone] Subjective Date of service: 04/28/21 Principal diagnosis: Ac. resp failure; AMS; Hypoglycemia; ROJELIO; Hyperkalemia; DM II Interval history: No fever. Remains on the vent, no issues per RN. Constipated. Objective - Exam Narrative Exam: Physical Exam: Constitutional: sedated, intubated, on the vent Head, Ears, Nose: Normocephalic, atraumatic. External ears, nose normal Eyes: Conjunctivae/corneas clear. No icterus. No ptosis. Neck: intubated Oral: intubated Cardiovascular: S1, S2 + Respiratory: AE fair bilaterally and equal GI: Soft, bowel sounds + Musculoskeletal: No pedal edema, no cyanosis. Skin: No rash or abscess Hem/Lymphatic: No palpable cervical or supraclavicular nodes. No lymphangitis Psych: no agitation Neurological: sedated, intubated, on the vent, exam limited - Constitutional Vitals: Vital Signs Temp Pulse Resp BP Pulse Ox 98.3 F 90 16 144/57 100 04/28/21 08:00 04/28/21 09:05 04/28/21 08:00 04/28/21 09:05 04/28/21 08:00 Temperature -Last 24 Hours Temperature 98.3 F Temperature 98.5 F Temperature 98.4 F Temperature 98.5 F Temperature 99.4 F Temperature 100.4 F - Labs CBC & Chem 7: 04/28/21 04:13 04/28/21 04:13 Labs: Abnormal lab results 04/27/21 04/27/21 04/27/21 Range/Units 11:22 17:21 17:45 WBC (4.5-11.0) K/mm3 RBC (3.65-5.03) M/mm3 Hgb (10.1-14.3) gm/dl Hct (30.3-42.9) % ABG pH (7.320-7.450) POC ABG pO2 (83-108) mmHg ABG Hemoglobin (12.0-17.5) ABG Oxyhemoglobin (94-98) ABG Glucose (65-95) mg/dL Carboxyhemoglobin (0.5-1.5) BUN (7-17) mg/dL Creatinine (0.6-1.2) mg/dL Glucose (65-100) mg/dL POC Glucose 251 H 180 H 178 H (70-105) mg/dL AST (5-40) units/L ALT (7-56) units/L Total Protein (6.3-8.2) g/dL Albumin (3.9-5) g/dL Arterial Blood Glucose (65-95) mg/dL 04/27/21 04/28/21 04/28/21 Range/Units 23:05 03:14 04:13 WBC (4.5-11.0) K/mm3 RBC (3.65-5.03) M/mm3 Hgb (10.1-14.3) gm/dl Hct (30.3-42.9) % ABG pH 7.507 H (7.320-7.450) POC ABG pO2 62.0 L (83-108) mmHg ABG Hemoglobin 10.2 L (12.0-17.5) ABG Oxyhemoglobin 91.9 L (94-98) ABG Glucose 337 H (65-95) mg/dL Carboxyhemoglobin 0.2 L (0.5-1.5) BUN 101 H (7-17) mg/dL Creatinine 3.1 H (0.6-1.2) mg/dL Glucose 304 H (65-100) mg/dL POC Glucose 189 H (70-105) mg/dL AST 61 H (5-40) units/L ALT 64 H (7-56) units/L Total Protein 6.2 L (6.3-8.2) g/dL Albumin 2.6 L (3.9-5) g/dL Arterial Blood Glucose 337 H (65-95) mg/dL 04/28/21 Range/Units 04:13 WBC 17.6 H (4.5-11.0) K/mm3 RBC 3.03 L (3.65-5.03) M/mm3 Hgb 9.7 L (10.1-14.3) gm/dl Hct 29.5 L (30.3-42.9) % ABG pH (7.320-7.450) POC ABG pO2 (83-108) mmHg ABG Hemoglobin (12.0-17.5) ABG Oxyhemoglobin (94-98) ABG Glucose (65-95) mg/dL Carboxyhemoglobin (0.5-1.5) BUN (7-17) mg/dL Creatinine (0.6-1.2) mg/dL Glucose (65-100) mg/dL POC Glucose (70-105) mg/dL AST (5-40) units/L ALT (7-56) units/L Total Protein (6.3-8.2) g/dL Albumin (3.9-5) g/dL Arterial Blood Glucose (65-95) mg/dL
--- NOTE | 2021-04-28 11:03 | Progress Note ---
Assessment and Plan Acute respiratory failure, on mechanical ventilatory support. Acute toxic metabolic encephalopathy Hypoglycemia ROJELIO Hyperkalemia Rhabdomyolysis Possible seizure activity DM II HTN CAD Obesity H/O breast cancer H/O TIA Leukocytosis Elevated serum TSH, possible hypothyroidism Bowel regimen Continue with daily SBTs as tolerated General surgery consult placed for tracheosotomy placement - continue to titrate supplemental oxygen to keep SpO2 89-92% - VAP bundle addressed, aspiration precautions HOB>30 - continue lung protective strategies - continue bronchodilators with pulmonary hygiene per RT - continue Daily SAT and SBT assessment as tolerated - wean per pulmonary driven protocols otherwise - continue accuchecks with glycemic control per SSI (While critically ill target blood glucose of 140-180 mg/dL; avoid hypoglycemia) - sedation prn for target RASS 0 to -1 - avoid nephrotoxins, renally dose all medications - continue to avoid benzodiazepines, reduce the possibility of delirium - follow clinically off ABs; trend fevers / WBC -ABG and CXR as clinically indicated - prn analgesia per CPOT score - Maintenance of sleep-wake cycle, avoid delirium - continue enteral nutritional support at goal rate as tolerated - G.I. & VTE prophylaxis - PT/OT/ROM exercises - continue mobility protocols for pressure ulcer prophylaxis - Monitor hemodynamics closely - continue other care per attending / other consultants CONDITION: CRITICAL PROGNOSIS: GUARDED CODE STATUS: FULL CODE The high probability of a clinically significant, sudden or life-threatening deterioration of the [respiratory, cardiovascular, GI & neurologic] system(s) required my full and direct attention, intervention and personal management. The aggregate critical care time was [32] minutes without overlap. Time includes spent on; [x] Data Review and interpretation [x] Patient assessment and monitoring of vital signs [x] Documentation [x] Medication orders and management Subjective Date of service: 04/28/21 Principal diagnosis: Ac. resp failure; AMS; Hypoglycemia; ROJELIO; Hyperkalemia; DM II Interval history: Patient is seen today for: Acute respiratory failure; AMS; Hypoglycemia; ROJELIO; Hyperkalemia; DM II; H/O breast cancer; Elevated serum TSH, possible hypothyroidism Seen and examined at bedside; 24hour events reviewed; nursing and respiratory care staff consulted; no adverse overnight events reported to me; resting peacefully in bed; remains on MVS; tolerating daytime PSV No acute or adverse overnight events. No fevers, no diarrhea, no vomiting. Constipation Objective Vital Signs - 12hr 04/27/21 04/27/21 04/27/21 23:14 23:31 23:56 Temperature 98.4 F Pulse Rate 84 79 Pulse Rate [ Bilateral] Pulse Rate [ From Monitor] Respiratory 17 Rate Respiratory Rate [Bilateral ] Blood Pressure 134/56 134/56 O2 Sat by Pulse 96 93 Oximetry 04/28/21 04/28/21 04/28/21 00:00 00:01 00:31 Temperature Pulse Rate 79 82 77 Pulse Rate [ Bilateral] Pulse Rate [ 79 From Monitor] Respiratory 15 18 17 Rate Respiratory Rate [Bilateral ] Blood Pressure 137/47 137/47 O2 Sat by Pulse 90 91 89 Oximetry 04/28/21 04/28/21 04/28/21 01:00 01:30 01:58 Temperature Pulse Rate 81 89 Pulse Rate [ 88 Bilateral] Pulse Rate [ From Monitor] Respiratory 17 18 Rate Respiratory 22 Rate [Bilateral ] Blood Pressure 137/60 122/63 O2 Sat by Pulse 93 94 Oximetry 04/28/21 04/28/21 04/28/21 02:00 02:30 03:00 Temperature Pulse Rate 84 86 91 H Pulse Rate [ Bilateral] Pulse Rate [ From Monitor] Respiratory 17 25 H 20 Rate Respiratory Rate [Bilateral ] Blood Pressure 110/56 83/64 114/58 O2 Sat by Pulse 90 94 99 Oximetry 04/28/21 04/28/21 04/28/21 03:08 03:30 03:49 Temperature 98.5 F Pulse Rate 86 85 Pulse Rate [ Bilateral] Pulse Rate [ From Monitor] Respiratory 21 Rate Respiratory Rate [Bilateral ] Blood Pressure 109/49 109/49 O2 Sat by Pulse 98 97 Oximetry 04/28/21 04/28/21 04/28/21 04:00 04:31 05:01 Temperature Pulse Rate 81 82 91 H Pulse Rate [ Bilateral] Pulse Rate [ 88 From Monitor] Respiratory 18 17 20 Rate Respiratory Rate [Bilateral ] Blood Pressure 123/48 124/55 119/43 O2 Sat by Pulse 99 94 100 Oximetry 04/28/21 04/28/21 04/28/21 05:31 06:01 06:30 Temperature Pulse Rate 91 H 83 84 Pulse Rate [ Bilateral] Pulse Rate [ From Monitor] Respiratory 25 H 16 21 Rate Respiratory Rate [Bilateral ] Blood Pressure 107/47 94/49 O2 Sat by Pulse 100 100 98 Oximetry 04/28/21 04/28/21 04/28/21 07:00 07:30 07:42 Temperature Pulse Rate 83 87 83 Pulse Rate [ Bilateral] Pulse Rate [ From Monitor] Respiratory 21 22 Rate Respiratory Rate [Bilateral ] Blood Pressure 121/48 89/52 94/49 O2 Sat by Pulse 100 98 100 Oximetry 04/28/21 04/28/21 04/28/21 07:49 08:00 09:05 Temperature 98.3 F Pulse Rate 82 89 Pulse Rate [ 80 Bilateral] Pulse Rate [ 77 From Monitor] Respiratory 21 Rate Respiratory 20 Rate [Bilateral ] Blood Pressure 120/68 144/57 O2 Sat by Pulse 97 Oximetry Constitutional: no acute distress, alert, other (elderly obese female with mildly increased respiratory effort at rest on MVS) Eyes: non-icteric (Patient obese and having mild respiratory distress at rest) ENT: oropharynx moist, other (ETT 24 cm RICARDO) Neck: supple, no lymphadenopathy, no JVD, other (large circumference) Effort: mildly labored Ascultation: Bilateral: clear, diminished breath sounds, rhonchi, other (mild stridorous sounds) Percussion: Bilateral: not dull Cardiovascular: regular rate and rhythm, other (S1,S2) Gastrointestinal: normoactive bowel sounds, hypoactive bowel sounds, non-tender, non-distended (protuberant), other (firm) Integumentary: normal Extremities: no cyanosis, no edema, pulses normal, no ischemia or petechiae Neurologic: non-focal exam (tracks voice), pupils equal and round Psychiatric: mood appropriate CBC and BMP: 04/29/21 04:22 04/29/21 04:22 ABG, PT/INR, D-dimer: ABG ABG pH 7.507 (7.320-7.450) H 04/28/21 03:14 POC ABG pCO2 34.0 mmHg (32.0-48.0) 04/28/21 03:14 POC ABG pO2 62.0 mmHg (83-108) L 04/28/21 03:14 POC ABG HCO3 26.3 04/28/21 03:14 ABG O2 Saturation 92.4 (0-100) 04/28/21 03:14 PT/INR, D-dimer PT 12.2 Sec. (12.2-14.9) 04/15/21 17:20 INR 0.91 (0.87-1.13) 04/15/21 17:20 Abnormal lab findings: Abnormal Labs 04/15/21 04/15/21 04/15/21 17:00 17:20 17:20 WBC 11.2 H RBC Hgb Hct 43.0 H MCV RDW 15.3 H Plt Count Lymph % (Auto) 12.8 L Seg Neutrophils % 82.4 H Seg Neuts % (Manual) Lymphocytes % (Manual) Monocytes % (Manual) Seg Neutrophils # 9.3 H Seg Neutrophils # Man Lymphocytes # (Manual) Monocytes # (Manual) ABG pH POC ABG pCO2 POC ABG pO2 ABG Hemoglobin ABG Oxyhemoglobin ABG Sodium ABG Potassium ABG Chloride ABG Glucose Carboxyhemoglobin Sodium 129 L Potassium 7.1 H* Chloride 91.9 L BUN 35 H Creatinine 2.8 H Glucose POC Glucose 191 H Calcium Phosphorus Magnesium AST 69 H ALT Total Creatine Kinase CK-MB (CK-2) Troponin T Total Protein Albumin HDL Cholesterol TSH Free T3 Index Arterial Blood Glucose Arterial Blood Ionized Calcium Urine pH Urine WBC (Auto) Urine Creatinine Acetaminophen 04/15/21 04/15/21 04/15/21 17:20 17:20 17:20 WBC RBC Hgb Hct MCV RDW Plt Count Lymph % (Auto) Seg Neutrophils % Seg Neuts % (Manual) Lymphocytes % (Manual) Monocytes % (Manual) Seg Neutrophils # Seg Neutrophils # Man Lymphocytes # (Manual) Monocytes # (Manual) ABG pH POC ABG pCO2 POC ABG pO2 ABG Hemoglobin ABG Oxyhemoglobin ABG Sodium ABG Potassium ABG Chloride ABG Glucose Carboxyhemoglobin Sodium Potassium Chloride BUN Creatinine Glucose POC Glucose Calcium Phosphorus Magnesium AST ALT Total Creatine Kinase 1000 H CK-MB (CK-2) Troponin T Total Protein Albumin HDL Cholesterol TSH 14.190 H Free T3 Index Arterial Blood Glucose Arterial Blood Ionized Calcium Urine pH Urine WBC (Auto) Urine Creatinine Acetaminophen 5.0 L 04/15/21 04/15/21 04/15/21 20:49 21:23 23:15 WBC RBC Hgb Hct MCV RDW Plt Count Lymph % (Auto) Seg Neutrophils % Seg Neuts % (Manual) Lymphocytes % (Manual) Monocytes % (Manual) Seg Neutrophils # Seg Neutrophils # Man Lymphocytes # (Manual) Monocytes # (Manual) ABG pH 7.557 H POC ABG pCO2 30.0 L POC ABG pO2 493.3 H ABG Hemoglobin ABG Oxyhemoglobin 99.0 H ABG Sodium 131.5 L ABG Potassium 4.7 H ABG Chloride 94.0 L ABG Glucose 218 H Carboxyhemoglobin Sodium Potassium Chloride BUN Creatinine Glucose POC Glucose 173 H 207 H Calcium Phosphorus Magnesium AST ALT Total Creatine Kinase CK-MB (CK-2) Troponin T Total Protein Albumin HDL Cholesterol TSH Free T3 Index Arterial Blood Glucose 218 H Arterial Blood Ionized Calcium 5.4 H Urine pH Urine WBC (Auto) Urine Creatinine Acetaminophen 04/16/21 04/16/21 04/16/21 00:09 00:12 00:19 WBC RBC Hgb Hct MCV RDW Plt Count Lymph % (Auto) Seg Neutrophils % Seg Neuts % (Manual) Lymphocytes % (Manual) Monocytes % (Manual) Seg Neutrophils # Seg Neutrophils # Man Lymphocytes # (Manual) Monocytes # (Manual) ABG pH POC ABG pCO2 POC ABG pO2 ABG Hemoglobin ABG Oxyhemoglobin ABG Sodium ABG Potassium ABG Chloride ABG Glucose Carboxyhemoglobin Sodium Potassium 6.7 H* Chloride BUN Creatinine Glucose POC Glucose Calcium Phosphorus Magnesium AST ALT Total Creatine Kinase CK-MB (CK-2) Troponin T Total Protein Albumin HDL Cholesterol TSH Free T3 Index Arterial Blood Glucose Arterial Blood Ionized Calcium Urine pH 9.0 H Urine WBC (Auto) Urine Creatinine 24.4 H Acetaminophen 04/16/21 04/16/21 04/16/21 03:43 03:55 05:02 WBC 21.2 H RBC Hgb Hct 43.4 H MCV 98 H RDW Plt Count Lymph % (Auto) Seg Neutrophils % Seg Neuts % (Manual) 84.0 H Lymphocytes % (Manual) 2.0 L Monocytes % (Manual) 10.0 H Seg Neutrophils # Seg Neutrophils # Man 17.8 H Lymphocytes # (Manual) 0.4 L Monocytes # (Manual) 2.1 H ABG pH 7.461 H POC ABG pCO2 POC ABG pO2 ABG Hemoglobin ABG Oxyhemoglobin ABG Sodium 126.8 L ABG Potassium 5.4 H ABG Chloride 90.0 L ABG Glucose 325 H Carboxyhemoglobin Sodium Potassium Chloride BUN Creatinine Glucose POC Glucose 391 H Calcium Phosphorus Magnesium AST ALT Total Creatine Kinase CK-MB (CK-2) Troponin T Total Protein Albumin HDL Cholesterol TSH Free T3 Index Arterial Blood Glucose 325 H Arterial Blood Ionized Calcium Urine pH Urine WBC (Auto) Urine Creatinine Acetaminophen 04/16/21 04/16/21 04/16/21 05:02 11:34 16:09 WBC RBC Hgb Hct MCV RDW Plt Count Lymph % (Auto) Seg Neutrophils % Seg Neuts % (Manual) Lymphocytes % (Manual) Monocytes % (Manual) Seg Neutrophils # Seg Neutrophils # Man Lymphocytes # (Manual) Monocytes # (Manual) ABG pH POC ABG pCO2 POC ABG pO2 ABG Hemoglobin ABG Oxyhemoglobin ABG Sodium ABG Potassium ABG Chloride ABG Glucose Carboxyhemoglobin Sodium 131 L Potassium 5.9 H Chloride 88.7 L BUN 34 H Creatinine 2.9 H Glucose 249 H POC Glucose 382 H 300 H Calcium 10.4 H Phosphorus Magnesium AST 65 H ALT Total Creatine Kinase CK-MB (CK-2) Troponin T Total Protein Albumin 3.8 L HDL Cholesterol TSH Free T3 Index Arterial Blood Glucose Arterial Blood Ionized Calcium Urine pH Urine WBC (Auto) Urine Creatinine Acetaminophen 04/16/21 04/16/21 04/16/21 18:15 19:01 19:01 WBC RBC Hgb Hct MCV RDW Plt Count Lymph % (Auto) Seg Neutrophils % Seg Neuts % (Manual) Lymphocytes % (Manual) Monocytes % (Manual) Seg Neutrophils # Seg Neutrophils # Man Lymphocytes # (Manual) Monocytes # (Manual) ABG pH POC ABG pCO2 POC ABG pO2 ABG Hemoglobin ABG Oxyhemoglobin ABG Sodium ABG Potassium ABG Chloride ABG Glucose Carboxyhemoglobin Sodium 125 L Potassium 5.5 H Chloride 84.5 L BUN 37 H Creatinine 3.5 H Glucose 236 H POC Glucose 287 H Calcium Phosphorus Magnesium AST ALT Total Creatine Kinase CK-MB (CK-2) Troponin T Total Protein Albumin HDL Cholesterol TSH Free T3 Index 1.1 L Arterial Blood Glucose Arterial Blood Ionized Calcium Urine pH Urine WBC (Auto) Urine Creatinine Acetaminophen 04/16/21 04/16/21 04/17/21 19:01 23:48 03:09 WBC RBC Hgb Hct MCV RDW Plt Count Lymph % (Auto) Seg Neutrophils % Seg Neuts % (Manual) Lymphocytes % (Manual) Monocytes % (Manual) Seg Neutrophils # Seg Neutrophils # Man Lymphocytes # (Manual) Monocytes # (Manual) ABG pH 7.518 H POC ABG pCO2 POC ABG pO2 ABG Hemoglobin ABG Oxyhemoglobin ABG Sodium 126.4 L ABG Potassium ABG Chloride 89.0 L ABG Glucose 200 H Carboxyhemoglobin Sodium Potassium 5.6 H Chloride BUN Creatinine Glucose POC Glucose 243 H Calcium Phosphorus Magnesium AST ALT Total Creatine Kinase CK-MB (CK-2) Troponin T Total Protein Albumin HDL Cholesterol TSH Free T3 Index Arterial Blood Glucose 200 H Arterial Blood Ionized Calcium 4.4 L Urine pH Urine WBC (Auto) Urine Creatinine Acetaminophen 04/17/21 04/17/21 04/17/21 05:04 06:14 11:55 WBC RBC Hgb Hct MCV RDW Plt Count Lymph % (Auto) Seg Neutrophils % Seg Neuts % (Manual) Lymphocytes % (Manual) Monocytes % (Manual) Seg Neutrophils # Seg Neutrophils # Man Lymphocytes # (Manual) Monocytes # (Manual) ABG pH POC ABG pCO2 POC ABG pO2 ABG Hemoglobin ABG Oxyhemoglobin ABG Sodium ABG Potassium ABG Chloride ABG Glucose Carboxyhemoglobin Sodium 129 L Potassium Chloride 86.1 L BUN 39 H Creatinine 3.5 H Glucose 202 H POC Glucose 208 H 276 H Calcium Phosphorus Magnesium AST ALT Total Creatine Kinase 750 H CK-MB (CK-2) Troponin T 0.119 H* D Total Protein Albumin HDL Cholesterol 61 H TSH Free T3 Index Arterial Blood Glucose Arterial Blood Ionized Calcium Urine pH Urine WBC (Auto) Urine Creatinine Acetaminophen 04/17/21 04/17/21 04/17/21 15:35 15:35 17:07 WBC 17.1 H RBC Hgb Hct MCV RDW Plt Count Lymph % (Auto) Seg Neutrophils % Seg Neuts % (Manual) Lymphocytes % (Manual) Monocytes % (Manual) Seg Neutrophils # Seg Neutrophils # Man Lymphocytes # (Manual) Monocytes # (Manual) ABG pH POC ABG pCO2 POC ABG pO2 ABG Hemoglobin ABG Oxyhemoglobin ABG Sodium ABG Potassium ABG Chloride ABG Glucose Carboxyhemoglobin Sodium Potassium Chloride BUN Creatinine Glucose POC Glucose 148 H Calcium Phosphorus Magnesium AST ALT Total Creatine Kinase 615 H CK-MB (CK-2) 9.1 H Troponin T Total Protein Albumin HDL Cholesterol TSH Free T3 Index Arterial Blood Glucose Arterial Blood Ionized Calcium Urine pH Urine WBC (Auto) Urine Creatinine Acetaminophen 04/18/21 04/18/21 04/18/21 00:01 03:00 05:24 WBC RBC Hgb Hct MCV RDW Plt Count Lymph % (Auto) Seg Neutrophils % Seg Neuts % (Manual) Lymphocytes % (Manual) Monocytes % (Manual) Seg Neutrophils # Seg Neutrophils # Man Lymphocytes # (Manual) Monocytes # (Manual) ABG pH 7.497 H POC ABG pCO2 POC ABG pO2 77.7 L ABG Hemoglobin 10.4 L ABG Oxyhemoglobin ABG Sodium 129.7 L ABG Potassium 2.8 L ABG Chloride 92.0 L ABG Glucose 134 H Carboxyhemoglobin 0.3 L Sodium Potassium Chloride BUN Creatinine Glucose POC Glucose 192 H 162 H Calcium Phosphorus Magnesium AST ALT Total Creatine Kinase CK-MB (CK-2) Troponin T Total Protein Albumin HDL Cholesterol TSH Free T3 Index Arterial Blood Glucose 134 H Arterial Blood Ionized Calcium 4.3 L Urine pH Urine WBC (Auto) Urine Creatinine Acetaminophen 04/18/21 04/18/21 04/18/21 05:34 05:34 05:43 WBC 15.3 H RBC 3.34 L Hgb Hct MCV RDW 15.3 H Plt Count Lymph % (Auto) Seg Neutrophils % Seg Neuts % (Manual) Lymphocytes % (Manual) Monocytes % (Manual) Seg Neutrophils # Seg Neutrophils # Man Lymphocytes # (Manual) Monocytes # (Manual) ABG pH POC ABG pCO2 POC ABG pO2 ABG Hemoglobin ABG Oxyhemoglobin ABG Sodium ABG Potassium ABG Chloride ABG Glucose Carboxyhemoglobin Sodium 134 L Potassium 3.0 L D Chloride 93.5 L BUN 42 H Creatinine 3.1 H Glucose 152 H POC Glucose Calcium Phosphorus Magnesium 1.40 L AST ALT Total Creatine Kinase 427 H CK-MB (CK-2) Troponin T 0.081 H D Total Protein Albumin HDL Cholesterol TSH Free T3 Index Arterial Blood Glucose Arterial Blood Ionized Calcium Urine pH Urine WBC (Auto) Urine Creatinine Acetaminophen 04/18/21 04/18/21 04/18/21 09:11 11:34 17:24 WBC RBC Hgb Hct MCV RDW Plt Count Lymph % (Auto) Seg Neutrophils % Seg Neuts % (Manual) Lymphocytes % (Manual) Monocytes % (Manual) Seg Neutrophils # Seg Neutrophils # Man Lymphocytes # (Manual) Monocytes # (Manual) ABG pH POC ABG pCO2 POC ABG pO2 ABG Hemoglobin ABG Oxyhemoglobin ABG Sodium ABG Potassium ABG Chloride ABG Glucose Carboxyhemoglobin Sodium Potassium Chloride BUN Creatinine Glucose POC Glucose 170 H 151 H Calcium Phosphorus Magnesium AST ALT Total Creatine Kinase CK-MB (CK-2) Troponin T Total Protein Albumin HDL Cholesterol TSH Free T3 Index Arterial Blood Glucose Arterial Blood Ionized Calcium Urine pH Urine WBC (Auto) 34.0 H Urine Creatinine Acetaminophen 04/18/21 04/19/21 04/19/21 23:18 04:09 05:19 WBC RBC Hgb Hct MCV RDW Plt Count Lymph % (Auto) Seg Neutrophils % Seg Neuts % (Manual) Lymphocytes % (Manual) Monocytes % (Manual) Seg Neutrophils # Seg Neutrophils # Man Lymphocytes # (Manual) Monocytes # (Manual) ABG pH 7.476 H POC ABG pCO2 POC ABG pO2 79.4 L ABG Hemoglobin 10.7 L ABG Oxyhemoglobin ABG Sodium 131.2 L ABG Potassium 2.8 L ABG Chloride 94.0 L ABG Glucose 209 H Carboxyhemoglobin 0.3 L Sodium Potassium Chloride BUN Creatinine Glucose POC Glucose 182 H 204 H Calcium Phosphorus Magnesium AST ALT Total Creatine Kinase CK-MB (CK-2) Troponin T Total Protein Albumin HDL Cholesterol TSH Free T3 Index Arterial Blood Glucose 209 H Arterial Blood Ionized Calcium Urine pH Urine WBC (Auto) Urine Creatinine Acetaminophen 04/19/21 04/19/21 04/19/21 07:30 07:30 10:35 WBC 14.8 H RBC 3.20 L Hgb Hct MCV 98 H RDW Plt Count 137 L Lymph % (Auto) Seg Neutrophils % Seg Neuts % (Manual) Lymphocytes % (Manual) Monocytes % (Manual) Seg Neutrophils # Seg Neutrophils # Man Lymphocytes # (Manual) Monocytes # (Manual) ABG pH 7.464 H POC ABG pCO2 POC ABG pO2 81.8 L ABG Hemoglobin 10.8 L ABG Oxyhemoglobin ABG Sodium 129.6 L ABG Potassium ABG Chloride 95.0 L ABG Glucose 238 H Carboxyhemoglobin Sodium 133 L Potassium 2.8 L* Chloride 94.4 L BUN 43 H Creatinine 2.7 H Glucose 255 H POC Glucose Calcium 8.0 L Phosphorus Magnesium AST ALT Total Creatine Kinase CK-MB (CK-2) Troponin T 0.060 H D Total Protein Albumin HDL Cholesterol TSH Free T3 Index Arterial Blood Glucose 238 H Arterial Blood Ionized Calcium Urine pH Urine WBC (Auto) Urine Creatinine Acetaminophen 04/19/21 04/19/21 04/19/21 11:48 20:40 23:04 WBC RBC Hgb Hct MCV RDW Plt Count Lymph % (Auto) Seg Neutrophils % Seg Neuts % (Manual) Lymphocytes % (Manual) Monocytes % (Manual) Seg Neutrophils # Seg Neutrophils # Man Lymphocytes # (Manual) Monocytes # (Manual) ABG pH POC ABG pCO2 POC ABG pO2 ABG Hemoglobin ABG Oxyhemoglobin ABG Sodium ABG Potassium ABG Chloride ABG Glucose Carboxyhemoglobin Sodium Potassium 3.4 L D Chloride BUN Creatinine Glucose POC Glucose 208 H 173 H Calcium Phosphorus Magnesium AST ALT Total Creatine Kinase CK-MB (CK-2) Troponin T Total Protein Albumin HDL Cholesterol TSH Free T3 Index Arterial Blood Glucose Arterial Blood Ionized Calcium Urine pH Urine WBC (Auto) Urine Creatinine Acetaminophen 04/20/21 04/20/21 04/20/21 02:56 03:32 03:32 WBC 13.2 H RBC 3.18 L Hgb Hct MCV RDW Plt Count Lymph % (Auto) Seg Neutrophils % Seg Neuts % (Manual) Lymphocytes % (Manual) Monocytes % (Manual) Seg Neutrophils # Seg Neutrophils # Man Lymphocytes # (Manual) Monocytes # (Manual) ABG pH 7.526 H POC ABG pCO2 POC ABG pO2 ABG Hemoglobin 10.5 L ABG Oxyhemoglobin ABG Sodium 133.5 L ABG Potassium ABG Chloride ABG Glucose 157 H Carboxyhemoglobin 0.3 L Sodium 135 L Potassium Chloride 96.7 L BUN 40 H Creatinine 2.3 H Glucose 142 H POC Glucose Calcium Phosphorus Magnesium AST ALT Total Creatine Kinase CK-MB (CK-2) Troponin T 0.065 H Total Protein Albumin HDL Cholesterol TSH Free T3 Index Arterial Blood Glucose 157 H Arterial Blood Ionized Calcium Urine pH Urine WBC (Auto) Urine Creatinine Acetaminophen 04/20/21 04/20/21 04/20/21 03:46 05:42 11:50 WBC RBC Hgb Hct MCV RDW Plt Count Lymph % (Auto) Seg Neutrophils % Seg Neuts % (Manual) Lymphocytes % (Manual) Monocytes % (Manual) Seg Neutrophils # Seg Neutrophils # Man Lymphocytes # (Manual) Monocytes # (Manual) ABG pH POC ABG pCO2 POC ABG pO2 ABG Hemoglobin ABG Oxyhemoglobin ABG Sodium ABG Potassium ABG Chloride ABG Glucose Carboxyhemoglobin Sodium Potassium Chloride BUN Creatinine Glucose POC Glucose 160 H 194 H Calcium Phosphorus 2.10 L Magnesium AST ALT Total Creatine Kinase CK-MB (CK-2) Troponin T Total Protein Albumin HDL Cholesterol TSH Free T3 Index Arterial Blood Glucose Arterial Blood Ionized Calcium Urine pH Urine WBC (Auto) Urine Creatinine Acetaminophen 04/20/21 04/20/21 04/21/21 17:09 23:18 05:26 WBC RBC Hgb Hct MCV RDW Plt Count Lymph % (Auto) Seg Neutrophils % Seg Neuts % (Manual) Lymphocytes % (Manual) Monocytes % (Manual) Seg Neutrophils # Seg Neutrophils # Man Lymphocytes # (Manual) Monocytes # (Manual) ABG pH POC ABG pCO2 POC ABG pO2 ABG Hemoglobin ABG Oxyhemoglobin ABG Sodium ABG Potassium ABG Chloride ABG Glucose Carboxyhemoglobin Sodium Potassium Chloride BUN Creatinine Glucose POC Glucose 153 H 162 H 164 H Calcium Phosphorus Magnesium AST ALT Total Creatine Kinase CK-MB (CK-2) Troponin T Total Protein Albumin HDL Cholesterol TSH Free T3 Index Arterial Blood Glucose Arterial Blood Ionized Calcium Urine pH Urine WBC (Auto) Urine Creatinine Acetaminophen 04/21/21 04/21/21 04/21/21 05:51 05:51 12:12 WBC RBC 3.20 L Hgb Hct MCV 99 H RDW 15.3 H Plt Count Lymph % (Auto) Seg Neutrophils % Seg Neuts % (Manual) Lymphocytes % (Manual) Monocytes % (Manual) Seg Neutrophils # Seg Neutrophils # Man Lymphocytes # (Manual) Monocytes # (Manual) ABG pH POC ABG pCO2 POC ABG pO2 ABG Hemoglobin ABG Oxyhemoglobin ABG Sodium ABG Potassium ABG Chloride ABG Glucose Carboxyhemoglobin Sodium Potassium Chloride 96.6 L BUN 42 H Creatinine 2.1 H Glucose 171 H POC Glucose 167 H Calcium Phosphorus Magnesium AST ALT Total Creatine Kinase CK-MB (CK-2) Troponin T Total Protein Albumin HDL Cholesterol TSH Free T3 Index Arterial Blood Glucose Arterial Blood Ionized Calcium Urine pH Urine WBC (Auto) Urine Creatinine Acetaminophen 04/21/21 04/21/21 04/22/21 17:13 23:42 05:29 WBC RBC Hgb Hct MCV RDW Plt Count Lymph % (Auto) Seg Neutrophils % Seg Neuts % (Manual) Lymphocytes % (Manual) Monocytes % (Manual) Seg Neutrophils # Seg Neutrophils # Man Lymphocytes # (Manual) Monocytes # (Manual) ABG pH POC ABG pCO2 POC ABG pO2 ABG Hemoglobin ABG Oxyhemoglobin ABG Sodium ABG Potassium ABG Chloride ABG Glucose Carboxyhemoglobin Sodium Potassium Chloride BUN Creatinine Glucose POC Glucose 178 H 253 H 208 H Calcium Phosphorus Magnesium AST ALT Total Creatine Kinase CK-MB (CK-2) Troponin T Total Protein Albumin HDL Cholesterol TSH Free T3 Index Arterial Blood Glucose Arterial Blood Ionized Calcium Urine pH Urine WBC (Auto) Urine Creatinine Acetaminophen 04/22/21 04/22/21 04/22/21 08:00 08:00 12:06 WBC 12.9 H RBC Hgb Hct MCV RDW Plt Count Lymph % (Auto) Seg Neutrophils % Seg Neuts % (Manual) Lymphocytes % (Manual) Monocytes % (Manual) Seg Neutrophils # Seg Neutrophils # Man Lymphocytes # (Manual) Monocytes # (Manual) ABG pH POC ABG pCO2 POC ABG pO2 ABG Hemoglobin ABG Oxyhemoglobin ABG Sodium ABG Potassium ABG Chloride ABG Glucose Carboxyhemoglobin Sodium Potassium Chloride BUN 47 H Creatinine 1.9 H Glucose 252 H POC Glucose 298 H Calcium Phosphorus Magnesium AST ALT Total Creatine Kinase CK-MB (CK-2) Troponin T Total Protein Albumin HDL Cholesterol TSH Free T3 Index Arterial Blood Glucose Arterial Blood Ionized Calcium Urine pH Urine WBC (Auto) Urine Creatinine Acetaminophen 04/22/21 04/22/21 04/23/21 17:34 23:01 05:08 WBC RBC Hgb Hct MCV RDW Plt Count Lymph % (Auto) Seg Neutrophils % Seg Neuts % (Manual) Lymphocytes % (Manual) Monocytes % (Manual) Seg Neutrophils # Seg Neutrophils # Man Lymphocytes # (Manual) Monocytes # (Manual) ABG pH POC ABG pCO2 POC ABG pO2 ABG Hemoglobin ABG Oxyhemoglobin ABG Sodium ABG Potassium ABG Chloride ABG Glucose Carboxyhemoglobin Sodium Potassium Chloride BUN Creatinine Glucose POC Glucose 259 H 280 H 223 H Calcium Phosphorus Magnesium AST ALT Total Creatine Kinase CK-MB (CK-2) Troponin T Total Protein Albumin HDL Cholesterol TSH Free T3 Index Arterial Blood Glucose Arterial Blood Ionized Calcium Urine pH Urine WBC (Auto) Urine Creatinine Acetaminophen 04/23/21 04/23/21 04/23/21 07:02 11:57 17:33 WBC RBC Hgb Hct MCV RDW Plt Count Lymph % (Auto) Seg Neutrophils % Seg Neuts % (Manual) Lymphocytes % (Manual) Monocytes % (Manual) Seg Neutrophils # Seg Neutrophils # Man Lymphocytes # (Manual) Monocytes # (Manual) ABG pH POC ABG pCO2 POC ABG pO2 ABG Hemoglobin ABG Oxyhemoglobin ABG Sodium ABG Potassium ABG Chloride ABG Glucose Carboxyhemoglobin Sodium Potassium Chloride 97.7 L BUN 57 H Creatinine 2.0 H Glucose 253 H POC Glucose 310 H 235 H Calcium Phosphorus Magnesium AST ALT Total Creatine Kinase CK-MB (CK-2) Troponin T Total Protein Albumin HDL Cholesterol TSH Free T3 Index Arterial Blood Glucose Arterial Blood Ionized Calcium Urine pH Urine WBC (Auto) Urine Creatinine Acetaminophen 04/23/21 04/24/21 04/24/21 23:15 05:23 05:46 WBC RBC Hgb Hct MCV RDW Plt Count Lymph % (Auto) Seg Neutrophils % Seg Neuts % (Manual) Lymphocytes % (Manual) Monocytes % (Manual) Seg Neutrophils # Seg Neutrophils # Man Lymphocytes # (Manual) Monocytes # (Manual) ABG pH POC ABG pCO2 POC ABG pO2 ABG Hemoglobin ABG Oxyhemoglobin ABG Sodium ABG Potassium ABG Chloride ABG Glucose Carboxyhemoglobin Sodium Potassium 5.2 H D Chloride BUN 68 H Creatinine 2.3 H Glucose 277 H POC Glucose 197 H 274 H Calcium Phosphorus Magnesium AST ALT Total Creatine Kinase CK-MB (CK-2) Troponin T Total Protein Albumin HDL Cholesterol TSH Free T3 Index Arterial Blood Glucose Arterial Blood Ionized Calcium Urine pH Urine WBC (Auto) Urine Creatinine Acetaminophen 04/24/21 04/24/21 04/24/21 11:33 11:52 17:49 WBC RBC Hgb Hct MCV RDW Plt Count Lymph % (Auto) Seg Neutrophils % Seg Neuts % (Manual) Lymphocytes % (Manual) Monocytes % (Manual) Seg Neutrophils # Seg Neutrophils # Man Lymphocytes # (Manual) Monocytes # (Manual) ABG pH POC ABG pCO2 POC ABG pO2 72.7 L ABG Hemoglobin 11.6 L ABG Oxyhemoglobin 92.9 L ABG Sodium ABG Potassium ABG Chloride ABG Glucose 269 H Carboxyhemoglobin Sodium Potassium Chloride BUN Creatinine Glucose POC Glucose 223 H 252 H Calcium Phosphorus Magnesium AST ALT Total Creatine Kinase CK-MB (CK-2) Troponin T Total Protein Albumin HDL Cholesterol TSH Free T3 Index Arterial Blood Glucose 269 H Arterial Blood Ionized Calcium Urine pH Urine WBC (Auto) Urine Creatinine Acetaminophen 04/24/21 04/24/21 04/25/21 21:00 23:48 03:06 WBC RBC Hgb Hct MCV RDW Plt Count Lymph % (Auto) Seg Neutrophils % Seg Neuts % (Manual) Lymphocytes % (Manual) Monocytes % (Manual) Seg Neutrophils # Seg Neutrophils # Man Lymphocytes # (Manual) Monocytes # (Manual) ABG pH 7.521 H 7.451 H POC ABG pCO2 POC ABG pO2 80.7 L 77.1 L ABG Hemoglobin 10.4 L 11.2 L ABG Oxyhemoglobin ABG Sodium ABG Potassium ABG Chloride ABG Glucose 186 H 165 H Carboxyhemoglobin 0 L Sodium Potassium Chloride BUN Creatinine Glucose POC Glucose 141 H Calcium Phosphorus Magnesium AST ALT Total Creatine Kinase CK-MB (CK-2) Troponin T Total Protein Albumin HDL Cholesterol TSH Free T3 Index Arterial Blood Glucose 186 H 165 H Arterial Blood Ionized Calcium Urine pH Urine WBC (Auto) Urine Creatinine Acetaminophen 04/25/21 04/25/21 04/25/21 03:56 03:56 06:03 WBC 12.3 H RBC 3.40 L Hgb Hct MCV RDW Plt Count Lymph % (Auto) Seg Neutrophils % Seg Neuts % (Manual) Lymphocytes % (Manual) Monocytes % (Manual) Seg Neutrophils # Seg Neutrophils # Man Lymphocytes # (Manual) Monocytes # (Manual) ABG pH POC ABG pCO2 POC ABG pO2 ABG Hemoglobin ABG Oxyhemoglobin ABG Sodium ABG Potassium ABG Chloride ABG Glucose Carboxyhemoglobin Sodium Potassium Chloride BUN 78 H Creatinine 2.5 H Glucose 152 H POC Glucose 171 H Calcium Phosphorus Magnesium AST ALT Total Creatine Kinase CK-MB (CK-2) Troponin T Total Protein Albumin HDL Cholesterol TSH Free T3 Index Arterial Blood Glucose Arterial Blood Ionized Calcium Urine pH Urine WBC (Auto) Urine Creatinine Acetaminophen 04/25/21 04/25/21 04/26/21 11:43 15:37 00:05 WBC RBC Hgb Hct MCV RDW Plt Count Lymph % (Auto) Seg Neutrophils % Seg Neuts % (Manual) Lymphocytes % (Manual) Monocytes % (Manual) Seg Neutrophils # Seg Neutrophils # Man Lymphocytes # (Manual) Monocytes # (Manual) ABG pH POC ABG pCO2 POC ABG pO2 ABG Hemoglobin ABG Oxyhemoglobin ABG Sodium ABG Potassium ABG Chloride ABG Glucose Carboxyhemoglobin Sodium Potassium Chloride BUN Creatinine Glucose POC Glucose 181 H 167 H 144 H Calcium Phosphorus Magnesium AST ALT Total Creatine Kinase CK-MB (CK-2) Troponin T Total Protein Albumin HDL Cholesterol TSH Free T3 Index Arterial Blood Glucose Arterial Blood Ionized Calcium Urine pH Urine WBC (Auto) Urine Creatinine Acetaminophen 04/26/21 04/26/21 04/26/21 04:30 05:44 09:30 WBC RBC Hgb Hct MCV RDW Plt Count Lymph % (Auto) Seg Neutrophils % Seg Neuts % (Manual) Lymphocytes % (Manual) Monocytes % (Manual) Seg Neutrophils # Seg Neutrophils # Man Lymphocytes # (Manual) Monocytes # (Manual) ABG pH 7.529 H POC ABG pCO2 POC ABG pO2 66.1 L ABG Hemoglobin 11.2 L ABG Oxyhemoglobin 92.8 L ABG Sodium ABG Potassium ABG Chloride ABG Glucose 216 H Carboxyhemoglobin 0.3 L Sodium Potassium Chloride BUN 82 H Creatinine 2.7 H Glucose 238 H POC Glucose 202 H Calcium Phosphorus Magnesium AST ALT Total Creatine Kinase CK-MB (CK-2) Troponin T Total Protein Albumin HDL Cholesterol TSH Free T3 Index Arterial Blood Glucose 216 H Arterial Blood Ionized Calcium Urine pH Urine WBC (Auto) Urine Creatinine Acetaminophen 04/26/21 04/26/21 04/26/21 09:30 11:32 17:21 WBC 24.7 H RBC 3.32 L Hgb Hct MCV RDW Plt Count Lymph % (Auto) Seg Neutrophils % Seg Neuts % (Manual) Lymphocytes % (Manual) Monocytes % (Manual) Seg Neutrophils # Seg Neutrophils # Man Lymphocytes # (Manual) Monocytes # (Manual) ABG pH POC ABG pCO2 POC ABG pO2 ABG Hemoglobin ABG Oxyhemoglobin ABG Sodium ABG Potassium ABG Chloride ABG Glucose Carboxyhemoglobin Sodium Potassium Chloride BUN Creatinine Glucose POC Glucose 245 H 264 H Calcium Phosphorus Magnesium AST ALT Total Creatine Kinase CK-MB (CK-2) Troponin T Total Protein Albumin HDL Cholesterol TSH Free T3 Index Arterial Blood Glucose Arterial Blood Ionized Calcium Urine pH Urine WBC (Auto) Urine Creatinine Acetaminophen 04/26/21 04/27/21 04/27/21 23:18 04:23 04:54 WBC RBC Hgb Hct MCV RDW Plt Count Lymph % (Auto) Seg Neutrophils % Seg Neuts % (Manual) Lymphocytes % (Manual) Monocytes % (Manual) Seg Neutrophils # Seg Neutrophils # Man Lymphocytes # (Manual) Monocytes # (Manual) ABG pH 7.549 H POC ABG pCO2 30.0 L POC ABG pO2 64.9 L ABG Hemoglobin 11 L ABG Oxyhemoglobin 93.3 L ABG Sodium ABG Potassium ABG Chloride ABG Glucose 325 H Carboxyhemoglobin 0.3 L Sodium Potassium Chloride BUN Creatinine Glucose POC Glucose 201 H 298 H Calcium Phosphorus Magnesium AST ALT Total Creatine Kinase CK-MB (CK-2) Troponin T Total Protein Albumin HDL Cholesterol TSH Free T3 Index Arterial Blood Glucose 325 H Arterial Blood Ionized Calcium Urine pH Urine WBC (Auto) Urine Creatinine Acetaminophen 04/27/21 04/27/21 04/27/21 07:52 07:52 11:22 WBC 23.0 H RBC 3.32 L Hgb Hct MCV RDW 15.5 H Plt Count Lymph % (Auto) Seg Neutrophils % Seg Neuts % (Manual) Lymphocytes % (Manual) Monocytes % (Manual) Seg Neutrophils # Seg Neutrophils # Man Lymphocytes # (Manual) Monocytes # (Manual) ABG pH POC ABG pCO2 POC ABG pO2 ABG Hemoglobin ABG Oxyhemoglobin ABG Sodium ABG Potassium ABG Chloride ABG Glucose Carboxyhemoglobin Sodium Potassium 3.5 L Chloride BUN 90 H Creatinine 2.8 H Glucose 286 H POC Glucose 251 H Calcium Phosphorus Magnesium AST ALT Total Creatine Kinase CK-MB (CK-2) Troponin T Total Protein Albumin HDL Cholesterol TSH Free T3 Index Arterial Blood Glucose Arterial Blood Ionized Calcium Urine pH Urine WBC (Auto) Urine Creatinine Acetaminophen 04/27/21 04/27/21 04/27/21 17:21 17:45 23:05 WBC RBC Hgb Hct MCV RDW Plt Count Lymph % (Auto) Seg Neutrophils % Seg Neuts % (Manual) Lymphocytes % (Manual) Monocytes % (Manual) Seg Neutrophils # Seg Neutrophils # Man Lymphocytes # (Manual) Monocytes # (Manual) ABG pH POC ABG pCO2 POC ABG pO2 ABG Hemoglobin ABG Oxyhemoglobin ABG Sodium ABG Potassium ABG Chloride ABG Glucose Carboxyhemoglobin Sodium Potassium Chloride BUN Creatinine Glucose POC Glucose 180 H 178 H 189 H Calcium Phosphorus Magnesium AST ALT Total Creatine Kinase CK-MB (CK-2) Troponin T Total Protein Albumin HDL Cholesterol TSH Free T3 Index Arterial Blood Glucose Arterial Blood Ionized Calcium Urine pH Urine WBC (Auto) Urine Creatinine Acetaminophen 04/28/21 04/28/21 04/28/21 03:14 04:13 04:13 WBC 17.6 H RBC 3.03 L Hgb 9.7 L Hct 29.5 L MCV RDW Plt Count Lymph % (Auto) Seg Neutrophils % Seg Neuts % (Manual) Lymphocytes % (Manual) Monocytes % (Manual) Seg Neutrophils # Seg Neutrophils # Man Lymphocytes # (Manual) Monocytes # (Manual) ABG pH 7.507 H POC ABG pCO2 POC ABG pO2 62.0 L ABG Hemoglobin 10.2 L ABG Oxyhemoglobin 91.9 L ABG Sodium ABG Potassium ABG Chloride ABG Glucose 337 H Carboxyhemoglobin 0.2 L Sodium Potassium Chloride BUN 101 H Creatinine 3.1 H Glucose 304 H POC Glucose Calcium Phosphorus Magnesium AST 61 H ALT 64 H Total Creatine Kinase CK-MB (CK-2) Troponin T Total Protein 6.2 L Albumin 2.6 L HDL Cholesterol TSH Free T3 Index Arterial Blood Glucose 337 H Arterial Blood Ionized Calcium Urine pH Urine WBC (Auto) Urine Creatinine Acetaminophen Chest x-ray: image reviewed Allied health notes reviewed: RT
--- NOTE | 2021-04-28 11:44 | Progress Note ---
Assessment and Plan Assessment and plan: This is a 80-year-old female with hypertension, diabetes mellitus, [place], breast cancer s/p double mastectomy, and a TIA who presented with hypoglycemia and altered mental status on 04/15 via EMS. Per EMS patient was unresponsive on their arrival and her blood glucose was 38 and she received 1 amp of dextrose patient continued to be unresponsive and only moaned with her eyes deviating to the left. Work-up in the emergency department revealed SIRS, symptomatic bradycardia, acute metabolic encephalopathy, acute hypoxic respiratory failure, elevated TSH, hyperglycemia, hyponatremia, hyperkalemia, acute kidney injury with ATN, and rhabdomyolysis 04/16: Neurology consulted, COVID-19 PCR negative, D10 drip decreased and eventually discontinued by [facility] and started on D5W for 1 L. Hydralazine as needed. Patient had hyper kalemia today and was treated with D50, insulin and Kayexalate. This time examination patient is on assist control tidal volume 450, rate of 16, PEEP of 6 and 25% FiO2. 04/17: Patient started on low-dose beta-angel per cardiology, CPAP trial again per [facility], BUN/creatinine holding steady and hypochloremia/hyponatremia slightly improved and hypokalemia has resolved. This morning a KUB was obtained which was concerning for ileus versus mechanical obstruction and surgery was c onsulted. Patient was made n.p.o. and NG tube placed to wall suction. Patient was given suppository. Per RN patient did not have a BM even though she was given Kayexalate yesterday. Will obtain a KUB in the a.m. Neurology was consulted yesterday and will await further recommendations. Nephew updated at bedside today, Carlos Romero. -[facility], cardiology, nephrology, neurology, nutrition consulted, appreciate recommendations -04/15 CT head shows age-related atrophic change, chronic small vessel ischemic change, no CT evidence of acute large vessel territory ischemic injury, hemorrhage or mass -04/15 echocardiogram shows left ventricular systolic function borderline, LVEF 45 to 50%, mild concentric LVH, paradoxical septal motion consistent with left bundle branch block with no clot identified in the left ventricle, calcified aortic valve without regurgitation or stenosis, trace MR, trace TR, no NC, RVSP is 24 mmHg -04/17 KUB shows gas-filled and dilated loops of small bowel noted over the upper abdomen largest measuring 5 cm concerning for ileus versus mechanical obstruction -04/18 KUB shows interval resolution of previously seen small bowel dilation -04/18 EEG pending 04/18: Neurology has ordered EEG/MRI B, CCM continues to wean MV. Persistent low grade temperature so we will obtain BCx2/UA. Patient has improving leukocytosis, hyponatremia, renal function studies and hypochloremia. She has hypokalemia today which is being repleted. Surgery has signed off today and has okayed r esumption of TF. [facility] will trial CPAP for longer today and plans to attempt extubation in AM. Family has requested transfer to [facility] and Dr. Gordon will attempt to contact transfer center. I updated her nephew, Carlos Romero over the phone today abouyt current events and update on transfer ([facility] will conduct a utilization review) 04/19: This morning patient is on CPAP trial at the time of examination, noted to be hypertensive and metoprolol increased to home dose, started on synthroid by [facility], lantus started re hyperglycemia, MRI completed with no acute findings. Severe hypokalemia (repleted and Mg pending). [facility] will contact CPAP trial again today with possible trial extubation tomorrow. 04/19 MRI brain shows no restricted diffusion, no hemorrhage,, no radiation, findings consistent with chronic microvascular disease, small bilateral mastoid effusions, mucosal thickening throughout the paranasal sinuses seen within the maxillary sinuses 04/20: Patient's leukocytosis and kidney function tests continue to improve. Patient is hypertensive overnight we will restart home hydralazine. [facility] plans to extubate patient today. Family is attempting to transfer to another facility. EEG pending, RT will atmept to contact tomographic tech. Urine culture grew gram negative rods. Increase in lantus 04/21: Increase in Lantus, repleted phos. Patient has started this afternoon and was given racemic epinephrine and started on steroids. Patient will have BiPAP as needed. We will recheck BMP in the a.m. renal function studies continues to decrease. Patient has been hypertensive on evaluation regimen has been changed. 04/22: Lantus increased for hyperglycemia and add amlodipine for better BP contr ol. Patient is on steroids. OT suctioned by RN with catheter in oral care kit and received copious amounts of secretions. Cr continues to decrease. Culture grew Pseudomonas and was changed in accordance to sensitivity. Kerr removed today after clearance from nephrology. 04/23: MRI of the brain was done and unremarkable. Will obtain reconsult to nephrology for further assistance as patient remains in profound encephalopathy despite improvement of blood sugar. Will repeat chest x-ray as patient does have significant congestion physical exam. Tube feeds still ongoing. Continue aspiration precautions. Continue antibiotics when completed for Pseudomonas management 04/24: Neurology input noted, patient unfortunately with no improvement mental status milton, continues with congestion, will defer with Torpedo Specialist for lasix in the setting of renal failure. will give kayexlate for hyperkalemia, still moans and groans, mittens in place. 04/25: Patient currently intubated, on restraints for safety, Profund encephalopathy persist, although awake she is not following any commands, Call placed to [facility] to see if they will accept transfer for ENT evaluation, while CT neck was negative, it was degraded by motion and unable to determent why patient had this stridor, Racemic Epinephrine was given [facility] is on ICU saturation, but will call back with an ENT to discuss case. Renal function mildly worse, continue to monitor. Per cardiology, no further arrhythmias noted since admission. Given short duration of atrial fibrillation, along with pt's age, renal fxn, and other co-morbidities,...will resume additional medical therapies for underlying severe multi-vessel CAD (bASA & Plavix). Pt has previously declined intervention of known lesions as per her Primary Vessel Specialist. 04/26: Now with febrile illness, ?developing infection, start on emperic abx, check lactate level, blood cultures, continue management per Epic Analyst, Monitor Leukocytosis, agree with Trach, family updated about denials in transfer request from outside hospitals. 04/27: WBC improving some, still with fever despite antibotics, ID consulted. CXR clear, continue current management, Trach will be planned if ok with family. Blood sugar remains elevated, will adjust insulin LANTUS to 40 units. Patient had previously completed Cefepime. Mental status remains unchanged, still moves upper ext. continue restraints 04/28: Continue supportive care. No new fever noted. Critical care physician will determine if patient should be have a trial of extubation again or if we should proceed straight to trach. Again continue to monitor mental status for complete improvement. Acute metabolic encephalopathy-persist Acute hypoxic respiratory failure (extubated 04/20)- Re-intubated secondary to Stridor and paradoxical breathing First-degree heart block Resolved ileus versus mechanical obstruction Acute kidney injury with vasomotor nephropathy UTI, Pseudomonas Possible seizure activity Hyperkalemia Elevated TSH Mild rhabdomyolysis Hypertension Diabetes mellitus with hyperglycemia on admission CAD Chronic illness debilitymyopathy Obesity S/p antibiotic therapy x1, currently on abd for UTI -S/p D10 and D5W gtt, on TF -Accu-Cheks every 6, SSI, long acting insulin -S/p IV calcium gluconate, regular insulin, D50 -S/p transcutaneous pacing, intermittent demand pacer in place -Renal ultrasound pending -Blood pressure monitoring per protocol -IV hydralazine as needed -Avoid ACEi/ARB in setting of ROJELIO -Avoid AV arron blocking agents -Avoid nephrotoxic agents and renally dose medications -BB, add home antihtn regimen as needed -Iv abx -TSH 14.1, T4 4.1, T3 pending-started on levothyroxine -Provegil -s/p racemic epinephrine x2 -Steroids -BiPAP as needed -Trend CBC, BMP, CK DVT/GI prophylaxis: Heparin subcu, PPI, SCDs to bilateral lower extremities while in bed Disposition: IMCU The high probability of a clinically significant, sudden or life threatening deterioration of the [PULMONARY, CARDIAC, RENAL] system(s) required my full and direct attention, intervention and personal management. The aggregate critical care time was [35] minutes. This time is in addition to time spent performing reported procedures but includes the following: [X] Data Review and interpretation [X] Patient assessment and monitoring of vital signs [X] Documentation [X] Medication orders and management History Interval history: This is a 80-year-old female with HTN, DM, KS, breast CA s/p double mastectomy, TIA who presented with hypoglycemia, AMS who was admitted with SIRS, symptomatic bradycardia, acute metabolic encephalopathy, acute hypoxic respiratory failure, elevated TSH, hyperglycemia, hyponatremia, hypokalemia, ROJELIO and rhabdomyolysis. Patient seen and examined this morning remains of full ventilatory support, per nursing staff patient follows direction when awake. Hospitalist Physical - Physical exam Narrative exam: General appearance: Present: no acute distress, other lethargic. not following commands due to mental status change. ETT in place. - EENT Eyes: Present: PERRL, EOM intact, NG tube in place ENT: poor dentition - Neck Neck: Present: normal ROM - Respiratory Respiratory effort: normal Respiratory: bilateral: CTA, congested - Cardiovascular Rhythm: regular Heart Sounds: Present: S1 & S2. Absent: systolic murmur, diastolic murmur - Extremities Extremities: no ischemia, pulses intact, pulses symmetrical, normal temperature, normal color Extremity abnormal: edema Peripheral Pulses: within normal limits - Abdominal General gastrointestinal: soft, non-tender, non-distended - Integumentary Integumentary: Present: See full documentation per nursing skin assessment. Otherwise appropriate for age - Psychiatric Psychiatric: Unable to fully examine - Neurologic Neurologic: moves all extremities - Allied Health Allied health notes reviewed: nursing, RT, social work - Constitutional Vitals: Temp Pulse Resp BP Pulse Ox 98.3 F 90 16 144/57 100 04/28/21 08:00 04/28/21 09:05 04/28/21 08:00 04/28/21 09:05 04/28/21 08:00 General appearance: Present: no acute distress, other (sedated) HEART Score - HEART Score Troponin: Troponin T 0.065 ng/mL (0.00-0.029) H 04/20/21 03:32 Results - Labs CBC & Chem 7: 04/28/21 04:13 04/28/21 04:13 Labs: Laboratory Last Values WBC 17.6 K/mm3 (4.5-11.0) H 04/28/21 04:13 RBC 3.03 M/mm3 (3.65-5.03) L 04/28/21 04:13 Hgb 9.7 gm/dl (10.1-14.3) L 04/28/21 04:13 Hct 29.5 % (30.3-42.9) L 04/28/21 04:13 MCV 97 fl (79-97) 04/28/21 04:13 MCH 32 pg (28-32) 04/28/21 04:13 MCHC 33 % (30-34) 04/28/21 04:13 RDW 15.2 % (13.2-15.2) 04/28/21 04:13 Plt Count 271 K/mm3 (140-440) 04/28/21 04:13 Lymph % (Auto) 12.8 % (13.4-35.0) L 04/15/21 17:20 [place] % (Auto) 4.1 % (0.0-7.3) 04/15/21 17:20 Eos % (Auto) 0.3 % (0.0-4.3) 04/15/21 17:20 Baso % (Auto) 0.4 % (0.0-1.8) 04/15/21 17:20 Lymph # (Auto) 1.4 K/mm3 (1.2-5.4) 04/15/21 17:20 [place] # (Auto) 0.5 K/mm3 (0.0-0.8) 04/15/21 17:20 Eos # (Auto) 0.0 K/mm3 (0.0-0.4) 04/15/21 17:20 Baso # (Auto) 0.0 K/mm3 (0.0-0.1) 04/15/21 17:20 Add Manual Diff Complete 04/16/21 05:02 Total Counted 100 04/16/21 05:02 Seg Neutrophils % 82.4 % (40.0-70.0) H 04/15/21 17:20 Seg Neuts % (Manual) 84.0 % (40.0-70.0) H 04/16/21 05:02 Band Neutrophils % 3.0 % 04/16/21 05:02 Lymphocytes % (Manual) 2.0 % (13.4-35.0) L 04/16/21 05:02 Monocytes % (Manual) 10.0 % (0.0-7.3) H 04/16/21 05:02 Metamyelocytes % 1.0 % 04/16/21 05:02 Nucleated RBC % Not Reportable 04/16/21 05:02 Seg Neutrophils # 9.3 K/mm3 (1.8-7.7) H 04/15/21 17:20 Seg Neutrophils # Man 17.8 K/mm3 (1.8-7.7) H 04/16/21 05:02 Band Neutrophils # 0.6 K/mm3 04/16/21 05:02 Lymphocytes # (Manual) 0.4 K/mm3 (1.2-5.4) L 04/16/21 05:02 Abs React Lymphs (Man) 0.0 K/mm3 04/16/21 05:02 Monocytes # (Manual) 2.1 K/mm3 (0.0-0.8) H 04/16/21 05:02 Eosinophils # (Manual) 0.0 K/mm3 (0.0-0.4) 04/16/21 05:02 Basophils # (Manual) 0.0 K/mm3 (0.0-0.1) 04/16/21 05:02 Metamyelocytes # 0.2 K/mm3 04/16/21 05:02 Myelocytes # 0.0 K/mm3 04/16/21 05:02 Promyelocytes # 0.0 K/mm3 04/16/21 05:02 Blast Cells # 0.0 K/mm3 04/16/21 05:02 WBC Morphology Not Reportable 04/16/21 05:02 Hypersegmented Neuts Not Reportable 04/16/21 05:02 Hyposegmented Neuts Not Reportable 04/16/21 05:02 Hypogranular Neuts Not Reportable 04/16/21 05:02 Smudge Cells Not Reportable 04/16/21 05:02 Toxic Granulation Not Reportable 04/16/21 05:02 Toxic Vacuolation Not Reportable 04/16/21 05:02 Dohle Bodies Not Reportable 04/16/21 05:02 Pelger-Huet Anomaly Not Reportable 04/16/21 05:02 Peterson Rods Not Reportable 04/16/21 05:02 Platelet Estimate Consistent w auto 04/16/21 05:02 Clumped Platelets Not Reportable 04/16/21 05:02 Plt Clumps, EDTA Not Reportable 04/16/21 05:02 Large Platelets Not Reportable 04/16/21 05:02 Giant Platelets Not Reportable 04/16/21 05:02 Platelet Satelliting Not Reportable 04/16/21 05:02 Plt Morphology Comment Not Reportable 04/16/21 05:02 RBC Morphology Not Reportable 04/16/21 05:02 Dimorphic RBCs Not Reportable 04/16/21 05:02 Polychromasia Not Reportable 04/16/21 05:02 Hypochromasia Not Reportable 04/16/21 05:02 Poikilocytosis Not Reportable 04/16/21 05:02 Anisocytosis Few 04/16/21 05:02 Microcytosis Not Reportable 04/16/21 05:02 Macrocytosis Not Reportable 04/16/21 05:02 Spherocytes Not Reportable 04/16/21 05:02 Pappenheimer Bodies Not Reportable 04/16/21 05:02 Sickle Cells Not Reportable 04/16/21 05:02 Target Cells Not Reportable 04/16/21 05:02 Tear Drop Cells Not Reportable 04/16/21 05:02 Ovalocytes Not Reportable 04/16/21 05:02 Helmet Cells Not Reportable 04/16/21 05:02 [place] Bodies Not Reportable 04/16/21 05:02 [place] Rings Not Reportable 04/16/21 05:02 Theo Cells Not Reportable 04/16/21 05:02 Bite Cells Not Reportable 04/16/21 05:02 Crenated Cell Not Reportable 04/16/21 05:02 Elliptocytes Not Reportable 04/16/21 05:02 Acanthocytes (Spur) Not Reportable 04/16/21 05:02 Rouleaux Not Reportable 04/16/21 05:02 Hemoglobin C Crystals Not Reportable 04/16/21 05:02 Schistocytes Not Reportable 04/16/21 05:02 Malaria parasites Not Reportable 04/16/21 05:02 James Bodies Not Reportable 04/16/21 05:02 Hem Pathologist Commnt No 04/16/21 05:02 PT 12.2 Sec. (12.2-14.9) 04/15/21 17:20 INR 0.91 (0.87-1.13) 04/15/21 17:20 APTT 31.8 Sec. (24.2-36.6) 04/15/21 17:20 ABG pH 7.507 (7.320-7.450) H 04/28/21 03:14 POC ABG pCO2 34.0 mmHg (32.0-48.0) 04/28/21 03:14 POC ABG pO2 62.0 mmHg (83-108) L 04/28/21 03:14 POC ABG HCO3 26.3 04/28/21 03:14 ABG O2 Saturation 92.4 (0-100) 04/28/21 03:14 POC ABG Base Excess 3.4 04/28/21 03:14 ABG Hemoglobin 10.2 (12.0-17.5) L 04/28/21 03:14 ABG Oxyhemoglobin 91.9 (94-98) L 04/28/21 03:14 ABG Methemoglobin 0.3 (0.0-1.5) 04/28/21 03:14 ABG Sodium 137.6 mmol/L (136.0-145.0) 04/28/21 03:14 ABG Potassium 3.8 mmol/L (3.40-4.50) 04/28/21 03:14 ABG Chloride 105.0 mmol/L (98-107) 04/28/21 03:14 ABG Glucose 337 mg/dL (65-95) H 04/28/21 03:14 Carboxyhemoglobin 0.2 (0.5-1.5) L 04/28/21 03:14 FiO2 % 30.0 04/28/21 03:14 Sodium 141 mmol/L (137-145) 04/28/21 04:13 Potassium 3.8 mmol/L (3.6-5.0) 04/28/21 04:13 Chloride 103.6 mmol/L (98-107) 04/28/21 04:13 Carbon Dioxide 27 mmol/L (22-30) 04/28/21 04:13 Anion Gap 14 mmol/L 04/28/21 04:13 BUN 101 mg/dL (7-17) H 04/28/21 04:13 Creatinine 3.1 mg/dL (0.6-1.2) H 04/28/21 04:13 Estimated GFR 17 ml/min 04/28/21 04:13 BUN/Creatinine Ratio 33 % 04/28/21 04:13 Glucose 304 mg/dL (65-100) H 04/28/21 04:13 POC Glucose 263 mg/dL (70-105) H 04/28/21 11:28 Lactic Acid 1.10 mmol/L (0.7-2.0) 04/26/21 09:30 Calcium 9.5 mg/dL (8.4-10.2) 04/28/21 04:13 Phosphorus 2.60 mg/dL (2.5-4.5) 04/22/21 08:00 Magnesium 2.10 mg/dL (1.7-2.3) 04/23/21 07:02 Total Bilirubin 0.30 mg/dL (0.1-1.2) 04/28/21 04:13 Direct Bilirubin < 0.2 mg/dL (0-0.2) 04/28/21 04:13 Indirect Bilirubin 0.1 mg/dL 04/28/21 04:13 AST 61 units/L (5-40) H 04/28/21 04:13 ALT 64 units/L (7-56) H 04/28/21 04:13 Alkaline Phosphatase 95 units/L (35-129) 04/28/21 04:13 Ammonia 46.0 umol/L (25-60) 04/15/21 17:20 Total Creatine Kinase 427 units/L (30-135) H 04/18/21 05:34 CK-MB (CK-2) 9.1 ng/mL (0.0-4.0) H 04/17/21 15:35 CK-MB (CK-2) Rel Index 1.4 (0-4) 04/17/21 15:35 Troponin T 0.065 ng/mL (0.00-0.029) H 04/20/21 03:32 NT-Pro-B Natriuret Pep 697.9 pg/mL (0-900) 04/15/21 17:20 Total Protein 6.2 g/dL (6.3-8.2) L 04/28/21 04:13 Albumin 2.6 g/dL (3.9-5) L 04/28/21 04:13 Albumin/Globulin Ratio 0.7 % 04/28/21 04:13 Triglycerides 103 mg/dL (2-149) 04/17/21 05:04 Cholesterol 122 mg/dL (50-199) 04/17/21 05:04 LDL Cholesterol Direct 55 mg/dL (50-130) 04/17/21 05:04 HDL Cholesterol 61 mg/dL (40-59) H 04/17/21 05:04 Cholesterol/HDL Ratio 2.00 % 04/17/21 05:04 Procalcitonin 0.20 ng/mL (<0.15) 04/16/21 19:01 TSH 14.190 mlU/mL (0.270-4.200) H 04/15/21 17:20 Thyroxine (T4) 4.1 ug/dL (4.0-12.0) 04/16/21 19:01 Free T3 Index 1.1 pg/mL (2.3-4.2) L 04/16/21 19:01 Arterial Blood Glucose 337 mg/dL (65-95) H 04/28/21 03:14 Arterial Blood Ionized Calcium 4.8 mg/dL (4.6-5.3) 04/27/21 04:23 Urine Color Yellow (Yellow) 04/18/21 09:11 Urine Turbidity Clear (Clear) 04/18/21 09:11 Urine pH 6.0 (5.0-7.0) 04/18/21 09:11 Ur Specific Adrian 1.014 (1.003-1.030) 04/18/21 09:11 Urine Protein >500 mg/dL (Negative) 04/18/21 09:11 Urine Glucose (UA) Neg mg/dL (Negative) 04/18/21 09:11 Urine Ketones Neg mg/dL (Negative) 04/18/21 09:11 Urine Blood Sm (Negative) 04/18/21 09:11 Urine Nitrite Neg (Negative) 04/18/21 09:11 Urine Bilirubin Neg (Negative) 04/18/21 09:11 Urine Urobilinogen 2.0 mg/dL (<2.0) 04/18/21 09:11 Ur Leukocyte Esterase Lg (Negative) 04/18/21 09:11 Urine WBC (Auto) 34.0 /HPF (0.0-6.0) H 04/18/21 09:11 Urine RBC (Auto) 18.0 /HPF (0.0-6.0) 04/18/21 09:11 U Epithel Cells (Auto) < 1.0 /HPF (0-13.0) 04/16/21 00:09 Urine Bacteria (Auto) 1+ /HPF (Negative) 04/16/21 00:09 Urine Creatinine 24.4 mg/dL (0.1-20.0) H 04/16/21 00:12 Urine Sodium 97 mmol/L 04/16/21 00:12 Random Vancomycin 15.5 ug/mL (0-40.0) 04/27/21 07:52 Salicylates 4.1 mg/dL (2.8-20.0) 04/15/21 17:20 Acetaminophen 5.0 ug/mL (10.0-30.0) L 04/15/21 17:20 Plasma/Serum Alcohol 0.02 % (0-0.07) 04/15/21 17:20 Coronavirus (PCR) Negative (Negative) 04/16/21 Unknown Microbiology: Microbiology 04/24/21 17:22 Tracheal Aspirate Sputum Culture - Preliminary 04/26/21 09:30 Peripheral/Venous Blood Culture - Preliminary NO GROWTH AFTER 24 HOURS 04/26/21 09:30 Peripheral/Venous Blood Culture - Preliminary NO GROWTH AFTER 24 HOURS 04/18/21 09:11 Urine,Clean Catch Urine Culture - Final Pseudomonas Aeruginosa Kerr/IV: Voiding Method Indwelling Catheter Active Medications - Current Medications Current Medications: Generic Name Dose Route Start Last Admin Trade Name Freq PRN Reason Stop Dose Admin Acetaminophen 650 mg 04/15/21 19:11 04/27/21 12:13 Acetaminophen 325 Mg Tab PO 650 mg Q6H PRN Administration Pain MILD(1-3)/Fever >100.5/SEXTON Albuterol/Ipratropium 1 ampul 04/24/21 14:00 04/28/21 07:49 Ipratropium/Albuterol Sulfate 3 Ml Ampul.Neb IH 1 ampul Q6HRT WOLFGANG Administration Amlodipine Besylate 10 mg 04/25/21 10:00 04/28/21 09:05 Amlodipine 10 Mg Tab PO 10 mg DAILY WOLFGANG Administration Lipase/Protease/Amylase 1 each 04/16/21 12:52 Lipase 10,500/Protease 25,000/Amylase 43,750 (Units) Dr Simpson FEEDTUBE PRN PRN For Clogged Feeding Tube Aspirin 81 mg 04/25/21 10:00 04/28/21 09:06 Aspirin 81 Mg Tab Chew PO 81 mg QDAY WOLFGANG Administration Bisacodyl 10 mg 04/17/21 11:01 04/17/21 13:46 Bisacodyl 10 Mg Rect Supp NC 10 mg QDAY PRN Administration Constipation Brimonidine Tartrate 1 drops 04/17/21 22:00 04/28/21 09:07 Brimonidine 0.15% Ophth Soln OU 1 drops BID WOLFGANG Administration Clopidogrel Bisulfate 75 mg 04/25/21 10:00 04/28/21 09:05 Clopidogrel 75 Mg Tab PO 75 mg QDAY WOLFGANG Administration Epinephrine 0.5 ml 04/21/21 12:56 Epinephrine Racemic 2.25% 0.5ml Nebu IH Q4HRT PRN Shortness Of Breath Famotidine 20 mg 04/17/21 10:00 04/28/21 09:05 Famotidine 20 Mg Tab PO 20 mg DAILY WOLFGANG Administration Fentanyl 50 mcg 04/24/21 13:03 Fentanyl 100 Mcg/2 Ml Inj IV Q10MIN PRN ANALGESIA Heparin Sodium (Porcine) 5,000 unit 04/15/21 22:00 04/28/21 09:06 Heparin 5,000 Unit/1 Ml Vial SUB-Q 5,000 unit Q12HR WOLFGANG Administration Hydralazine HCl 10 mg 04/16/21 18:00 04/24/21 05:25 Hydralazine 20 Mg/1 Ml Inj IV 10 mg Q4HR PRN Administration Hypertension Hydralazine HCl 100 mg 04/21/21 14:00 04/28/21 09:05 Hydralazine 100 Mg Tab PO 100 mg TID WOLFGANG Administration Hydrophilic Ointment 1 applic 04/15/21 17:24 Lip Therapy Vaseline TP Q2HR PRN Dry Lips Fentanyl Citrate 2,000 mcg in 100 mls @ 4.765 mls/hr 04/24/21 14:00 04/25/21 09:15 Fentanyl Drip Premix IV 0 mcg/kg/hr TITR WOLFGANG 0 mls/hr Titration Protocol 1 MCG/KG/HR Propofol 1,000 mg in 100 mls @ 2.859 mls/hr 04/24/21 14:00 04/25/21 09:10 Diprivan 10 Mg/Ml IV 0 mcg/kg/min TITR WOLFGANG 0 mls/hr Titration Protocol 5 MCG/KG/MIN Cefepime HCl 2 gm in 100 mls @ 200 mls/hr 04/27/21 10:00 04/28/21 09:10 Cefepime/Ns 2 Gm/100 Ml IV 200 mls/hr Q24H WOLFGANG Administration Protocol Insulin Glargine 40 units 04/28/21 08:00 04/28/21 09:06 Insulin Glargine 100 Units/Ml SUB-Q 40 units QAMDIAB WOLFGANG Administration Insulin Human Lispro 0 unit 04/16/21 15:00 04/28/21 06:31 Insulin Lispro 100 Unit/Ml SUB-Q 6 unit Q6HR WOLFGANG Administration Protocol Latanoprost 1 drops 04/17/21 18:00 04/27/21 18:06 Latanoprost 0.005% Ophth Soln 2.5 Ml OU 1 drops QPM WOLFGANG Administration Levothyroxine Sodium 25 mcg 04/19/21 06:00 04/28/21 06:31 Levothyroxine 25 Mcg Tab PO 25 mcg DAILY@0600 WOLFGANG Administration Lorazepam 1 mg 04/24/21 11:32 Lorazepam 2 Mg/Ml Vial IV Q12HR PRN Agitation Metoprolol Tartrate 25 mg 04/19/21 10:00 04/28/21 09:05 Metoprolol Tartrate 25 Mg Tab PO 25 mg BID WOLFGANG Administration Multi-Ingred Cream/Lotion/Oil/Oint 1 applic 04/15/21 17:24 04/26/21 10:05 Mineral Oil/Petrolatum, White Ophth Oint 3.5 Gm OU 1 applic Q4HR PRN Administration Dry Eye(s) Pravastatin Sodium 20 mg 04/19/21 22:00 04/27/21 21:06 Pravastatin 20 Mg Tab PO 20 mg QHS WOLFGANG Administration Scopolamine 1 each 04/20/21 18:00 04/26/21 10:06 Scopolamine Transdermal Patch 72 Hr TD 1 each Q3D WOLFGANG Administration Simple Syrup 15 ml 04/16/21 12:52 Simple Syrup 15 Ml FEEDTUBE PRN PRN Hypoglycemia Simple Syrup 30 ml 04/16/21 12:52 Simple Syrup 15 Ml FEEDTUBE PRN PRN Hypoglycemia Sodium Bicarbonate 325 mg 04/16/21 12:52 Sodium Bicarbonate 325 Mg Tab FEEDTUBE PRN PRN For Clogged Feeding Tube Sodium Chloride 10 ml 04/15/21 22:00 04/28/21 09:06 Sodium Chloride 0.9% 10 Ml Flush Syringe IV 10 ml BID WOLFGANG Administration Sodium Chloride 10 ml 04/15/21 19:11 04/24/21 05:27 Sodium Chloride 0.9% 10 Ml Flush Syringe IV 10 ml PRN PRN Administration LINE FLUSH Tamsulosin HCl 0.4 mg 04/25/21 14:00 04/28/21 09:05 Tamsulosin 0.4 Mg Cap PO 0.4 mg QDAY WOLFGANG Administration Timolol Maleate 1 drops 04/19/21 10:00 04/28/21 09:07 Timolol 0.5% Ophth Soln 5 Ml OU 1 drops QDAY WOLFGANG Administration Nutrition/Malnutrition Assess - Dietary Evaluation Nutrition/Malnutrition Findings: Nutrition Notes Start: 04/16/21 12:31 Freq: Status: Active Protocol: Document 04/23/21 11:37 MAYE (Rec: 04/23/21 11:53 MAYE [id number]) Nutrition Notes Initial or Follow up Reassessment Current Diagnosis Acute Kidney Injury,Coronary Artery Disease,Diabetes, Hypertension Other Pertinent Diagnosis UTI, acute metabolic encephalopathy Current Diet TF - Glucerna 1.2 at 50ml/hr Labs/Tests BUN 57 Cr 2 BG 253 Pertinent Medications Lantus, Solumedrol, Scopolamine Height 5 ft 6 in Weight 95.3 kg [place] Body Weight (kg) 59.09 BMI 33.9 Weight Status Obese Subjective/Other Information Spoke with RN via phone at 11: 32. Pt extubated on 04/20 and is tolerating TF at goal rate; receives 50ml water flush q4h . Percent of energy/protein needs met: 100% energy 61% pro Burn Absent Trauma Absent #1 Nutrition Diagnosis Inadequate oral intake Diagnosis Progress(for reassessment Continues documentation) Is patient on ventilator? No Is Patient Ambulatory and/or Out of Bed No REE-([place]-confined to bed) 1728.336 Kcal/Kg value to use for calculation 13 Approximate Energy Requirements Using 1239 kcal/Kg Calculation Used for Recommendations Kcal/kg Additional Notes Pro needs >2g/kg IBW: >118g/ day Fluid needs 1ml/kcal Nutrition Intervention Nutrition Support: Continue Glucerna 1.2 at 50ml/ hr with 50ml water flush q4h. Kcal 1,440 Protein (gm) 72 Fluid (mL) 966 Goal #1 TF tolerance Goal #2 TF to meet energy and pro needs as best possible Follow-Up By: 04/30/21 Additional Comments F/U: stable TF, wt
[2021-04-28] MEDS: LATANOPROST 0.005% OPHTH SOLN 2.5 ML OU SCH (18:24)
[2021-04-28] MEDS: PRAVASTATIN 20 MG TAB PO SCH (21:04)
[2021-04-29] MEDS: INSULIN LISPRO 100 UNIT/ML SUB-Q SCH ×5 (00:07→23:44)
[2021-04-29] MEDS: IPRATROPIUM/ALBUTEROL SULFATE 3 ML AMPUL.NEB IH SCH ×4 (02:05→19:28)
[2021-04-29 04:50] LABS: Hematocrit 31.5 % (30.3-42.9); Hemoglobin 9.8 gm/dl (10.1-14.3); Mean Corpuscular HGB Conc 31 % (30-34); Mean Corpuscular Volume 96 fl (79-97); Platelet Count 324 K/mm3 (140-440); Red Cell Distribution Width 15.1 % (13.2-15.2)
[2021-04-29 05:08] LABS: Calcium 9.4 mg/dL (8.4-10.2)
[2021-04-29] MEDS: LEVOTHYROXINE 25 MCG TAB PO SCH (05:31)
--- NOTE | 2021-04-29 09:23 | Progress Note ---
Assessment and Plan Assessment and plan: This is a 80-year-old female with hypertension, diabetes mellitus, NC, breast cancer s/p double mastectomy, and a TIA who presented with hypoglycemia and altered mental status on 04/15 via EMS. Per EMS patient was unresponsive on their arrival and her blood glucose was 38 and she received 1 amp of dextrose patient continued to be unresponsive and only moaned with her eyes deviating to the left. Work-up in the emergency department revealed SIRS, symptomatic bradycardia, acute metabolic encephalopathy, acute hypoxic respiratory failure, elevated TSH, hyperglycemia, hyponatremia, hyperkalemia, acute kidney injury with ATN, and rhabdomyolysis 04/16: Neurology consulted, COVID-19 PCR negative, D10 drip decreased and eventually discontinued by [facility] and started on D5W for 1 L. Hydralazine as needed. Patient had hyper kalemia today and was treated with D50, insulin and Kayexalate. This time examination patient is on assist control tidal volume 450, rate of 16, PEEP of 6 and 25% FiO2. 04/17: Patient started on low-dose beta-angel per cardiology, CPAP trial again per [facility], BUN/creatinine holding steady and hypochloremia/hyponatremia slightly improved and hypokalemia has resolved. This morning a KUB was obtained which was concerning for ileus versus mechanical obstruction and surgery was c onsulted. Patient was made n.p.o. and NG tube placed to wall suction. Patient was given suppository. Per RN patient did not have a BM even though she was given Kayexalate yesterday. Will obtain a KUB in the a.m. Neurology was consulted yesterday and will await further recommendations. Nephew updated at bedside today, Carlos Romero. -[facility], cardiology, nephrology, neurology, nutrition consulted, appreciate recommendations -04/15 CT head shows age-related atrophic change, chronic small vessel ischemic change, no CT evidence of acute large vessel territory ischemic injury, hemorrhage or mass -04/15 echocardiogram shows left ventricular systolic function borderline, LVEF 45 to 50%, mild concentric LVH, paradoxical septal motion consistent with left bundle branch block with no clot identified in the left ventricle, calcified aortic valve without regurgitation or stenosis, trace MR, trace TR, no OR, RVSP is 24 mmHg -04/17 KUB shows gas-filled and dilated loops of small bowel noted over the upper abdomen largest measuring 5 cm concerning for ileus versus mechanical obstruction -04/18 KUB shows interval resolution of previously seen small bowel dilation -04/18 EEG pending 04/18: Neurology has ordered EEG/MRI B, CCM continues to wean MV. Persistent low grade temperature so we will obtain BCx2/UA. Patient has improving leukocytosis, hyponatremia, renal function studies and hypochloremia. She has hypokalemia today which is being repleted. Surgery has signed off today and has okayed r esumption of TF. [facility] will trial CPAP for longer today and plans to attempt extubation in AM. Family has requested transfer to [place] and Dr. Gordon will attempt to contact transfer center. I updated her nephew, Carlos Romero over the phone today abouyt current events and update on transfer ([place] will conduct a utilization review) 04/19: This morning patient is on CPAP trial at the time of examination, noted to be hypertensive and metoprolol increased to home dose, started on synthroid by [facility], lantus started re hyperglycemia, MRI completed with no acute findings. Severe hypokalemia (repleted and Mg pending). [facility] will contact CPAP trial again today with possible trial extubation tomorrow. 04/19 MRI brain shows no restricted diffusion, no hemorrhage,, no radiation, findings consistent with chronic microvascular disease, small bilateral mastoid effusions, mucosal thickening throughout the paranasal sinuses seen within the maxillary sinuses 04/20: Patient's leukocytosis and kidney function tests continue to improve. Patient is hypertensive overnight we will restart home hydralazine. [facility] plans to extubate patient today. Family is attempting to transfer to another facility. EEG pending, RT will atmept to contact psych tech. Urine culture grew gram negative rods. Increase in lantus 04/21: Increase in Lantus, repleted phos. Patient has started this afternoon and was given racemic epinephrine and started on steroids. Patient will have BiPAP as needed. We will recheck BMP in the a.m. renal function studies continues to decrease. Patient has been hypertensive on evaluation regimen has been changed. 04/22: Lantus increased for hyperglycemia and add amlodipine for better BP contr ol. Patient is on steroids. OT suctioned by RN with catheter in oral care kit and received copious amounts of secretions. Cr continues to decrease. Culture grew Pseudomonas and was changed in accordance to sensitivity. Kerr removed today after clearance from nephrology. 04/23: MRI of the brain was done and unremarkable. Will obtain reconsult to nephrology for further assistance as patient remains in profound encephalopathy despite improvement of blood sugar. Will repeat chest x-ray as patient does have significant congestion physical exam. Tube feeds still ongoing. Continue aspiration precautions. Continue antibiotics when completed for Pseudomonas management 04/24: Neurology input noted, patient unfortunately with no improvement mental status mil[place], continues with congestion, will defer with Back End Architect for lasix in the setting of renal failure. will give kayexlate for hyperkalemia, still moans and groans, mittens in place. 04/25: Patient currently intubated, on restraints for safety, Profund encephalopathy persist, although awake she is not following any commands, Call placed to [place] to see if they will accept transfer for ENT evaluation, while CT neck was negative, it was degraded by motion and unable to determent why patient had this stridor, Racemic Epinephrine was given [place] is on ICU saturation, but will call back with an ENT to discuss case. Renal function mildly worse, continue to monitor. Per cardiology, no further arrhythmias noted since admission. Given short duration of atrial fibrillation, along with pt's age, renal fxn, and other co-morbidities,...will resume additional medical therapies for underlying severe multi-vessel CAD (bASA & Plavix). Pt has previously declined intervention of known lesions as per her Primary Entry Level Staff Accountant. 04/26: Now with febrile illness, ?developing infection, start on emperic abx, check lactate level, blood cultures, continue management per Locomotive Firer, Monitor Leukocytosis, agree with Trach, family updated about denials in transfer request from outside hospitals. 04/27: WBC improving some, still with fever despite antibotics, ID consulted. CXR clear, continue current management, Trach will be planned if ok with family. Blood sugar remains elevated, will adjust insulin LANTUS to 40 units. Patient had previously completed Cefepime. Mental status remains unchanged, still moves upper ext. continue restraints 04/28: Continue supportive care. No new fever noted. Critical care physician will determine if patient should be have a trial of extubation again or if we should proceed straight to trach. Again continue to monitor mental status for complete improvement. 04/29: Per Locomotive Firer discussion with family, will proceed to Tracheostomy, Patients mental status still fluctuating, Continue current management. Surgeon consulted. Acute metabolic encephalopathy-persist Acute hypoxic respiratory failure (extubated 04/20)- Re-intubated secondary to Stridor and paradoxical breathing First-degree heart block Resolved ileus versus mechanical obstruction Acute kidney injury with vasomotor nephropathy UTI, Pseudomonas Possible seizure activity Hyperkalemia Elevated TSH Mild rhabdomyolysis Hypertension Diabetes mellitus with hyperglycemia on admission CAD Hypothyrodisim Chronic illness debilitymyopathy Obesity S/p antibiotic therapy x1, currently on abd for UTI -S/p D10 and D5W gtt, on TF -Accu-Cheks every 6, SSI, long acting insulin -S/p IV calcium gluconate, regular insulin, D50 -S/p transcutaneous pacing, intermittent demand pacer in place -Renal ultrasound pending -Blood pressure monitoring per protocol -IV hydralazine as needed -Avoid ACEi/ARB in setting of ROJELIO -Avoid AV arron blocking agents -Avoid nephrotoxic agents and renally dose medications -BB, add home antihtn regimen as needed -Iv abx -TSH 14.1, T4 4.1, T3 pending-started on levothyroxine -Provegil -s/p racemic epinephrine x2 -Steroids -BiPAP as needed -Trend CBC, BMP, CK DVT/GI prophylaxis: Heparin subcu, PPI, SCDs to bilateral lower extremities while in bed The high probability of a clinically significant, sudden or life threatening deterioration of the [PULMONARY, CARDIAC, RENAL] system(s) required my full and direct attention, intervention and personal management. The aggregate critical care time was [35] minutes. This time is in addition to time spent performing reported procedures but includes the following: [X] Data Review and interpretation [X] Patient assessment and monitoring of vital signs [X] Documentation [X] Medication orders and management History Interval history: This is a 80-year-old female with HTN, DM, NC, breast CA s/p double mastectomy, TIA who presented with hypoglycemia, AMS who was admitted with SIRS, symptomatic bradycardia, acute metabolic encephalopathy, acute hypoxic respiratory failure, elevated TSH, hyperglycemia, hyponatremia, hypokalemia, ROJELIO and rhabdomyolysis. Patient seen and examined this morning remains of full ventilatory support. Hospitalist Physical - Physical exam Narrative exam: General appearance: Present: no acute distress, other lethargic. not following commands due to mental status change. ETT in place. - EENT Eyes: Present: PERRL, EOM intact, NG tube in place ENT: poor dentition - Neck Neck: Present: normal ROM - Respiratory Respiratory effort: normal Respiratory: bilateral: CTA, congested - Cardiovascular Rhythm: regular Heart Sounds: Present: S1 & S2. Absent: systolic murmur, diastolic murmur - Extremities Extremities: no ischemia, pulses intact, pulses symmetrical, normal temperature, normal color Extremity abnormal: edema Peripheral Pulses: within normal limits - Abdominal General gastrointestinal: soft, non-tender, non-distended - Integumentary Integumentary: Present: See full documentation per nursing skin assessment. Otherwise appropriate for age - Psychiatric Psychiatric: Unable to fully examine - Neurologic Neurologic: moves all extremities - Allied Health Allied health notes reviewed: nursing, RT, social work - Constitutional Vitals: Temp Pulse Resp BP Pulse Ox 100.1 F H 94 H 27 H 132/56 98 04/29/21 07:26 04/29/21 06:01 04/29/21 06:01 04/29/21 06:01 04/29/21 06:01 General appearance: Present: no acute distress, other (sedated) HEART Score - HEART Score Troponin: Troponin T 0.065 ng/mL (0.00-0.029) H 04/20/21 03:32 Results - Labs CBC & Chem 7: 04/29/21 04:22 04/29/21 04:22 Labs: Laboratory Last Values WBC 15.2 K/mm3 (4.5-11.0) H 04/29/21 04:22 RBC 3.30 M/mm3 (3.65-5.03) L 04/29/21 04:22 Hgb 9.8 gm/dl (10.1-14.3) L 04/29/21 04:22 Hct 31.5 % (30.3-42.9) 04/29/21 04:22 MCV 96 fl (79-97) 04/29/21 04:22 MCH 30 pg (28-32) 04/29/21 04:22 MCHC 31 % (30-34) 04/29/21 04:22 RDW 15.1 % (13.2-15.2) 04/29/21 04:22 Plt Count 324 K/mm3 (140-440) 04/29/21 04:22 Lymph % (Auto) 12.8 % (13.4-35.0) L 04/15/21 17:20 [place] % (Auto) 4.1 % (0.0-7.3) 04/15/21 17:20 Eos % (Auto) 0.3 % (0.0-4.3) 04/15/21 17:20 Baso % (Auto) 0.4 % (0.0-1.8) 04/15/21 17:20 Lymph # (Auto) 1.4 K/mm3 (1.2-5.4) 04/15/21 17:20 [place] # (Auto) 0.5 K/mm3 (0.0-0.8) 04/15/21 17:20 Eos # (Auto) 0.0 K/mm3 (0.0-0.4) 04/15/21 17:20 Baso # (Auto) 0.0 K/mm3 (0.0-0.1) 04/15/21 17:20 Add Manual Diff Complete 04/16/21 05:02 Total Counted 100 04/16/21 05:02 Seg Neutrophils % 82.4 % (40.0-70.0) H 04/15/21 17:20 Seg Neuts % (Manual) 84.0 % (40.0-70.0) H 04/16/21 05:02 Band Neutrophils % 3.0 % 04/16/21 05:02 Lymphocytes % (Manual) 2.0 % (13.4-35.0) L 04/16/21 05:02 Monocytes % (Manual) 10.0 % (0.0-7.3) H 04/16/21 05:02 Metamyelocytes % 1.0 % 04/16/21 05:02 Nucleated RBC % Not Reportable 04/16/21 05:02 Seg Neutrophils # 9.3 K/mm3 (1.8-7.7) H 04/15/21 17:20 Seg Neutrophils # Man 17.8 K/mm3 (1.8-7.7) H 04/16/21 05:02 Band Neutrophils # 0.6 K/mm3 04/16/21 05:02 Lymphocytes # (Manual) 0.4 K/mm3 (1.2-5.4) L 04/16/21 05:02 Abs React Lymphs (Man) 0.0 K/mm3 04/16/21 05:02 Monocytes # (Manual) 2.1 K/mm3 (0.0-0.8) H 04/16/21 05:02 Eosinophils # (Manual) 0.0 K/mm3 (0.0-0.4) 04/16/21 05:02 Basophils # (Manual) 0.0 K/mm3 (0.0-0.1) 04/16/21 05:02 Metamyelocytes # 0.2 K/mm3 04/16/21 05:02 Myelocytes # 0.0 K/mm3 04/16/21 05:02 Promyelocytes # 0.0 K/mm3 04/16/21 05:02 Blast Cells # 0.0 K/mm3 04/16/21 05:02 WBC Morphology Not Reportable 04/16/21 05:02 Hypersegmented Neuts Not Reportable 04/16/21 05:02 Hyposegmented Neuts Not Reportable 04/16/21 05:02 Hypogranular Neuts Not Reportable 04/16/21 05:02 Smudge Cells Not Reportable 04/16/21 05:02 Toxic Granulation Not Reportable 04/16/21 05:02 Toxic Vacuolation Not Reportable 04/16/21 05:02 Dohle Bodies Not Reportable 04/16/21 05:02 Pelger-Huet Anomaly Not Reportable 04/16/21 05:02 Peterson Rods Not Reportable 04/16/21 05:02 Platelet Estimate Consistent w auto 04/16/21 05:02 Clumped Platelets Not Reportable 04/16/21 05:02 Plt Clumps, EDTA Not Reportable 04/16/21 05:02 Large Platelets Not Reportable 04/16/21 05:02 Giant Platelets Not Reportable 04/16/21 05:02 Platelet Satelliting Not Reportable 04/16/21 05:02 Plt Morphology Comment Not Reportable 04/16/21 05:02 RBC Morphology Not Reportable 04/16/21 05:02 Dimorphic RBCs Not Reportable 04/16/21 05:02 Polychromasia Not Reportable 04/16/21 05:02 Hypochromasia Not Reportable 04/16/21 05:02 Poikilocytosis Not Reportable 04/16/21 05:02 Anisocytosis Few 04/16/21 05:02 Microcytosis Not Reportable 04/16/21 05:02 Macrocytosis Not Reportable 04/16/21 05:02 Spherocytes Not Reportable 04/16/21 05:02 Pappenheimer Bodies Not Reportable 04/16/21 05:02 Sickle Cells Not Reportable 04/16/21 05:02 Target Cells Not Reportable 04/16/21 05:02 Tear Drop Cells Not Reportable 04/16/21 05:02 Ovalocytes Not Reportable 04/16/21 05:02 Helmet Cells Not Reportable 04/16/21 05:02 [place] Bodies Not Reportable 04/16/21 05:02 [place] Rings Not Reportable 04/16/21 05:02 Theo Cells Not Reportable 04/16/21 05:02 Bite Cells Not Reportable 04/16/21 05:02 Crenated Cell Not Reportable 04/16/21 05:02 Elliptocytes Not Reportable 04/16/21 05:02 Acanthocytes (Spur) Not Reportable 04/16/21 05:02 Rouleaux Not Reportable 04/16/21 05:02 Hemoglobin C Crystals Not Reportable 04/16/21 05:02 Schistocytes Not Reportable 04/16/21 05:02 Malaria parasites Not Reportable 04/16/21 05:02 James Bodies Not Reportable 04/16/21 05:02 Hem Pathologist Commnt No 04/16/21 05:02 PT 12.2 Sec. (12.2-14.9) 04/15/21 17:20 INR 0.91 (0.87-1.13) 04/15/21 17:20 APTT 31.8 Sec. (24.2-36.6) 04/15/21 17:20 ABG pH 7.546 (7.320-7.450) H 04/29/21 03:24 POC ABG pCO2 32.1 mmHg (32.0-48.0) 04/29/21 03:24 POC ABG pO2 52.4 mmHg (83-108) L 04/29/21 03:24 POC ABG HCO3 27.2 04/29/21 03:24 ABG O2 Saturation 88.9 (0-100) 04/29/21 03:24 POC ABG Base Excess 4.9 04/29/21 03:24 ABG Hemoglobin 10.5 (12.0-17.5) L 04/29/21 03:24 ABG Oxyhemoglobin 88.3 (94-98) L 04/29/21 03:24 ABG Methemoglobin 0.3 (0.0-1.5) 04/29/21 03:24 ABG Sodium 143.4 mmol/L (136.0-145.0) 04/29/21 03:24 ABG Potassium 3.6 mmol/L (3.40-4.50) 04/29/21 03:24 ABG Chloride 107.0 mmol/L (98-107) 04/29/21 03:24 ABG Glucose 217 mg/dL (65-95) H 04/29/21 03:24 Carboxyhemoglobin 0.4 (0.5-1.5) L 04/29/21 03:24 FiO2 % 30.0 04/29/21 03:24 Sodium 148 mmol/L (137-145) H 04/29/21 04:22 Potassium 4.2 mmol/L (3.6-5.0) 04/29/21 04:22 Chloride 106.8 mmol/L (98-107) 04/29/21 04:22 Carbon Dioxide 27 mmol/L (22-30) 04/29/21 04:22 Anion Gap 18 mmol/L 04/29/21 04:22 BUN 110 mg/dL (7-17) H 04/29/21 04:22 Creatinine 3.1 mg/dL (0.6-1.2) H 04/29/21 04:22 Estimated GFR 17 ml/min 04/29/21 04:22 BUN/Creatinine Ratio 35 % 04/29/21 04:22 Glucose 208 mg/dL (65-100) H 04/29/21 04:22 POC Glucose 181 mg/dL (70-105) H 04/29/21 05:08 Lactic Acid 1.10 mmol/L (0.7-2.0) 04/26/21 09:30 Calcium 9.4 mg/dL (8.4-10.2) 04/29/21 04:22 Phosphorus 2.60 mg/dL (2.5-4.5) 04/22/21 08:00 Magnesium 2.10 mg/dL (1.7-2.3) 04/23/21 07:02 Total Bilirubin 0.30 mg/dL (0.1-1.2) 04/28/21 04:13 Direct Bilirubin < 0.2 mg/dL (0-0.2) 04/28/21 04:13 Indirect Bilirubin 0.1 mg/dL 04/28/21 04:13 AST 61 units/L (5-40) H 04/28/21 04:13 ALT 64 units/L (7-56) H 04/28/21 04:13 Alkaline Phosphatase 95 units/L (35-129) 04/28/21 04:13 Ammonia 46.0 umol/L (25-60) 04/15/21 17:20 Total Creatine Kinase 427 units/L (30-135) H 04/18/21 05:34 CK-MB (CK-2) 9.1 ng/mL (0.0-4.0) H 04/17/21 15:35 CK-MB (CK-2) Rel Index 1.4 (0-4) 04/17/21 15:35 Troponin T 0.065 ng/mL (0.00-0.029) H 04/20/21 03:32 NT-Pro-B Natriuret Pep 697.9 pg/mL (0-900) 04/15/21 17:20 Total Protein 6.2 g/dL (6.3-8.2) L 04/28/21 04:13 Albumin 2.6 g/dL (3.9-5) L 04/28/21 04:13 Albumin/Globulin Ratio 0.7 % 04/28/21 04:13 Triglycerides 103 mg/dL (2-149) 04/17/21 05:04 Cholesterol 122 mg/dL (50-199) 04/17/21 05:04 LDL Cholesterol Direct 55 mg/dL (50-130) 04/17/21 05:04 HDL Cholesterol 61 mg/dL (40-59) H 04/17/21 05:04 Cholesterol/HDL Ratio 2.00 % 04/17/21 05:04 Procalcitonin 0.20 ng/mL (<0.15) 04/16/21 19:01 TSH 14.190 mlU/mL (0.270-4.200) H 04/15/21 17:20 Thyroxine (T4) 4.1 ug/dL (4.0-12.0) 04/16/21 19:01 Free T3 Index 1.1 pg/mL (2.3-4.2) L 04/16/21 19:01 Arterial Blood Glucose 217 mg/dL (65-95) H 04/29/21 03:24 Arterial Blood Ionized Calcium 4.9 mg/dL (4.6-5.3) 04/29/21 03:24 Urine Color Yellow (Yellow) 04/18/21 09:11 Urine Turbidity Clear (Clear) 04/18/21 09:11 Urine pH 6.0 (5.0-7.0) 04/18/21 09:11 Ur Specific [place] 1.014 (1.003-1.030) 04/18/21 09:11 Urine Protein >500 mg/dL (Negative) 04/18/21 09:11 Urine Glucose (UA) Neg mg/dL (Negative) 04/18/21 09:11 Urine Ketones Neg mg/dL (Negative) 04/18/21 09:11 Urine Blood Sm (Negative) 04/18/21 09:11 Urine Nitrite Neg (Negative) 04/18/21 09:11 Urine Bilirubin Neg (Negative) 04/18/21 09:11 Urine Urobilinogen 2.0 mg/dL (<2.0) 04/18/21 09:11 Ur Leukocyte Esterase Lg (Negative) 04/18/21 09:11 Urine WBC (Auto) 34.0 /HPF (0.0-6.0) H 04/18/21 09:11 Urine RBC (Auto) 18.0 /HPF (0.0-6.0) 04/18/21 09:11 U Epithel Cells (Auto) < 1.0 /HPF (0-13.0) 04/16/21 00:09 Urine Bacteria (Auto) 1+ /HPF (Negative) 04/16/21 00:09 Urine Creatinine 24.4 mg/dL (0.1-20.0) H 04/16/21 00:12 Urine Sodium 97 mmol/L 04/16/21 00:12 Random Vancomycin 15.5 ug/mL (0-40.0) 04/27/21 07:52 Salicylates 4.1 mg/dL (2.8-20.0) 04/15/21 17:20 Acetaminophen 5.0 ug/mL (10.0-30.0) L 04/15/21 17:20 Plasma/Serum Alcohol 0.02 % (0-0.07) 04/15/21 17:20 Coronavirus (PCR) Negative (Negative) 04/16/21 Unknown Microbiology: Microbiology 04/26/21 09:30 Peripheral/Venous Blood Culture - Preliminary NO GROWTH AFTER 48 HOURS 04/26/21 09:30 Peripheral/Venous Blood Culture - Preliminary NO GROWTH AFTER 48 HOURS 04/24/21 17:22 Tracheal Aspirate Sputum Culture - Final Kerr/IV: Voiding Method Indwelling Catheter Active Medications - Current Medications Current Medications: Generic Name Dose Route Start Last Admin Trade Name Freq PRN Reason Stop Dose Admin Acetaminophen 650 mg 04/15/21 19:11 04/27/21 12:13 Acetaminophen 325 Mg Tab PO 650 mg Q6H PRN Administration Pain MILD(1-3)/Fever >100.5/SEXTON Albuterol/Ipratropium 1 ampul 04/24/21 14:00 04/29/21 02:05 Ipratropium/Albuterol Sulfate 3 Ml Ampul.Neb IH 1 ampul Q6HRT WOLFGANG Administration Amlodipine Besylate 10 mg 04/25/21 10:00 04/28/21 09:05 Amlodipine 10 Mg Tab PO 10 mg DAILY WOLFGANG Administration Lipase/Protease/Amylase 1 each 04/16/21 12:52 Lipase 10,500/Protease 25,000/Amylase 43,750 (Units) Dr Simpson FEEDTUBE PRN PRN For Clogged Feeding Tube Aspirin 81 mg 04/25/21 10:00 04/28/21 09:06 Aspirin 81 Mg Tab Chew PO 81 mg QDAY WOLFGANG Administration Bisacodyl 10 mg 04/17/21 11:01 04/28/21 21:04 Bisacodyl 10 Mg Rect Supp OR 10 mg QDAY PRN Administration Constipation Brimonidine Tartrate 1 drops 04/17/21 22:00 04/28/21 21:05 Brimonidine 0.15% Ophth Soln OU 1 drops BID WOLFGANG Administration Clopidogrel Bisulfate 75 mg 04/25/21 10:00 04/28/21 09:05 Clopidogrel 75 Mg Tab PO 75 mg QDAY WOLFGANG Administration Epinephrine 0.5 ml 04/21/21 12:56 Epinephrine Racemic 2.25% 0.5ml Nebu IH Q4HRT PRN Shortness Of Breath Famotidine 20 mg 04/17/21 10:00 04/28/21 09:05 Famotidine 20 Mg Tab PO 20 mg DAILY WOLFGANG Administration Fentanyl 50 mcg 04/24/21 13:03 Fentanyl 100 Mcg/2 Ml Inj IV Q10MIN PRN ANALGESIA Heparin Sodium (Porcine) 5,000 unit 04/15/21 22:00 04/28/21 21:05 Heparin 5,000 Unit/1 Ml Vial SUB-Q 5,000 unit Q12HR WOLFGANG Administration Hydralazine HCl 10 mg 04/16/21 18:00 04/24/21 05:25 Hydralazine 20 Mg/1 Ml Inj IV 10 mg Q4HR PRN Administration Hypertension Hydralazine HCl 100 mg 04/21/21 14:00 04/28/21 20:07 Hydralazine 100 Mg Tab PO 100 mg TID WOLFGANG Administration Hydrophilic Ointment 1 applic 04/15/21 17:24 Lip Therapy Vaseline TP Q2HR PRN Dry Lips Fentanyl Citrate 2,000 mcg in 100 mls @ 4.765 mls/hr 04/24/21 14:00 04/25/21 09:15 Fentanyl Drip Premix IV 0 mcg/kg/hr TITR WOLFGANG 0 mls/hr Titration Protocol 1 MCG/KG/HR Propofol 1,000 mg in 100 mls @ 2.859 mls/hr 04/24/21 14:00 04/25/21 09:10 Diprivan 10 Mg/Ml IV 0 mcg/kg/min TITR WOLFGANG 0 mls/hr Titration Protocol 5 MCG/KG/MIN Cefepime HCl 2 gm in 100 mls @ 200 mls/hr 04/27/21 10:00 04/28/21 09:10 Cefepime/Ns 2 Gm/100 Ml IV 200 mls/hr Q24H WOLFGANG Administration Protocol Insulin Glargine 40 units 04/28/21 08:00 04/28/21 09:06 Insulin Glargine 100 Units/Ml SUB-Q 40 units QAMDIAB WOLFGANG Administration Insulin Human Lispro 0 unit 04/16/21 15:00 04/29/21 05:31 Insulin Lispro 100 Unit/Ml SUB-Q 3 unit Q6HR WOLFGANG Administration Protocol Latanoprost 1 drops 04/17/21 18:00 04/28/21 18:24 Latanoprost 0.005% Ophth Soln 2.5 Ml OU 1 drops QPM WOLFGANG Administration Levothyroxine Sodium 25 mcg 04/19/21 06:00 04/29/21 05:31 Levothyroxine 25 Mcg Tab PO 25 mcg DAILY@0600 WOLFGANG Administration Metoprolol Tartrate 25 mg 04/19/21 10:00 04/28/21 21:05 Metoprolol Tartrate 25 Mg Tab PO 25 mg BID WOLFGANG Administration Multi-Ingred Cream/Lotion/Oil/Oint 1 applic 04/15/21 17:24 04/26/21 10:05 Mineral Oil/Petrolatum, White Ophth Oint 3.5 Gm OU 1 applic Q4HR PRN Administration Dry Eye(s) Pravastatin Sodium 20 mg 04/19/21 22:00 04/28/21 21:04 Pravastatin 20 Mg Tab PO 20 mg QHS WOLFGANG Administration Scopolamine 1 each 04/20/21 18:00 04/26/21 10:06 Scopolamine Transdermal Patch 72 Hr TD 1 each Q3D WOLFGANG Administration Simple Syrup 15 ml 04/16/21 12:52 Simple Syrup 15 Ml FEEDTUBE PRN PRN Hypoglycemia Simple Syrup 30 ml 04/16/21 12:52 Simple Syrup 15 Ml FEEDTUBE PRN PRN Hypoglycemia Sodium Bicarbonate 325 mg 04/16/21 12:52 Sodium Bicarbonate 325 Mg Tab FEEDTUBE PRN PRN For Clogged Feeding Tube Sodium Chloride 10 ml 04/15/21 22:00 04/28/21 21:06 Sodium Chloride 0.9% 10 Ml Flush Syringe IV 10 ml BID WOLFGANG Administration Sodium Chloride 10 ml 04/15/21 19:11 04/24/21 05:27 Sodium Chloride 0.9% 10 Ml Flush Syringe IV 10 ml PRN PRN Administration LINE FLUSH Tamsulosin HCl 0.4 mg 04/25/21 14:00 04/28/21 09:05 Tamsulosin 0.4 Mg Cap PO 0.4 mg QDAY WOLFGANG Administration Timolol Maleate 1 drops 04/19/21 10:00 04/28/21 09:07 Timolol 0.5% Ophth Soln 5 Ml OU 1 drops QDAY WOLFGANG Administration Nutrition/Malnutrition Assess - Dietary Evaluation Nutrition/Malnutrition Findings: Nutrition Notes Start: 04/16/21 12:31 Freq: Status: Active Protocol: Document 04/23/21 11:37 MAYE (Rec: 04/23/21 11:53 MAYE [id number]) Nutrition Notes Initial or Follow up Reassessment Current Diagnosis Acute Kidney Injury,Coronary Artery Disease,Diabetes, Hypertension Other Pertinent Diagnosis UTI, acute metabolic encephalopathy Current Diet TF - Glucerna 1.2 at 50ml/hr Labs/Tests BUN 57 Cr 2 BG 253 Pertinent Medications Lantus, Solumedrol, Scopolamine Height 5 ft 6 in Weight 95.3 kg [place] Body Weight (kg) 59.09 BMI 33.9 Weight Status Obese Subjective/Other Information Spoke with RN via phone at 11: 32. Pt extubated on 04/20 and is tolerating TF at goal rate; receives 50ml water flush q4h . Percent of energy/protein needs met: 100% energy 61% pro Burn Absent Trauma Absent #1 Nutrition Diagnosis Inadequate oral intake Diagnosis Progress(for reassessment Continues documentation) Is patient on ventilator? No Is Patient Ambulatory and/or Out of Bed No REE-([facility]-confined to bed) 1728.336 Kcal/Kg value to use for calculation 13 Approximate Energy Requirements Using 1239 kcal/Kg Calculation Used for Recommendations Kcal/kg Additional Notes Pro needs >2g/kg IBW: >118g/ day Fluid needs 1ml/kcal Nutrition Intervention Nutrition Support: Continue Glucerna 1.2 at 50ml/ hr with 50ml water flush q4h. Kcal 1,440 Protein (gm) 72 Fluid (mL) 966 Goal #1 TF tolerance Goal #2 TF to meet energy and pro needs as best possible Follow-Up By: 04/30/21 Additional Comments F/U: stable TF, wt
[2021-04-29] MEDS: CLOPIDOGREL 75 MG TAB PO SCH (09:34)
[2021-04-29] MEDS: FAMOTIDINE 20 MG TAB PO SCH (09:34)
[2021-04-29] MEDS: TAMSULOSIN 0.4 MG CAP PO SCH (09:34)
[2021-04-29] MEDS: ASPIRIN 81 MG TAB CHEW PO SCH (09:34)
[2021-04-29] MEDS: METOPROLOL TARTRATE 25 MG TAB PO SCH ×2 (09:35→21:33)
[2021-04-29] MEDS: SCOPOLAMINE TRANSDERMAL PATCH 72 HR TD SCH (09:35)
[2021-04-29] MEDS: CEFEPIME/NS 2 GM/100 ML 2 GM/100 ML BAG IV SCH (09:35)
[2021-04-29] MEDS: hydrALAZINE 100 MG TAB PO SCH ×3 (09:35→20:41)
[2021-04-29] MEDS: amLODIPine 10 MG TAB PO SCH (09:35)
[2021-04-29] MEDS: INSULIN GLARGINE 100 UNITS/ML SUB-Q SCH (09:35)
[2021-04-29] MEDS: TIMOLOL 0.5% OPHTH SOLN 5 ML OU SCH (09:36)
[2021-04-29] MEDS: HEPARIN 5,000 UNIT/1 ML VIAL SUB-Q SCH ×2 (09:36→21:33)
[2021-04-29] MEDS: BRIMONIDINE 0.15% OPHTH SOLN OU SCH ×2 (09:37→21:34)
--- NOTE | 2021-04-29 10:07 | Progress Note ---
Assessment and Plan 1. Acute kidney injury: Vasomotor ROJELIO. ATN likely. Renal US negative for hydro. Baseline renal function is unknown. Monitor renal function. Non-oliguric. Pt has hui catheter. Creatinine level continue to increase. Renal prognosis is guarded. Avoid nephrotoxic agents. Meds dosage based on GFR. 2. FEN: Hypokalemia, replete K as needed, monitor. Hyponatremia, improved. Monitor lytes and volume status. 3. Acute hypoxemic respiratory failure: Extubated, re-intubated 04/24. 4. Acute encephalopathy: Hypoglycemia. MRI brain negative. Followed by Neuro. 5. Pseudomonas UTI. 6. Hypertension. 7. DM type 2. 8. Mild rhabdomyolysis. 9. Mildly complex R renal cyst. Subjective: Patient was seen and examined at the bedside. Examination: General appearance: well-developed, appears stated age, intubated on vent HEENT: BRUCE, atraumatic Neck: trachea midline Respiratory: Coarse breath sounds heard Heart: S1S2, no murmur Abdomen: soft, obese, bowel sounds heard, NT Integumentary: no obvious rash Neurologic: stuporous Ext: no edema noted : Hui catheter Subjective Date of service: 04/29/21 Principal diagnosis: Ac. resp failure; AMS; Hypoglycemia; ROJELIO; Hyperkalemia; DM II Objective - Vital Signs Vital signs: Vital Signs - 12hr 04/28/21 04/28/21 04/28/21 22:31 22:57 23:01 Temperature Pulse Rate 86 87 87 Pulse Rate [ Bilateral] Pulse Rate [ From Monitor] Respiratory 25 H 25 H 26 H Rate Respiratory Rate [Bilateral ] Blood Pressure 133/55 133/55 120/57 O2 Sat by Pulse 94 91 95 Oximetry 04/28/21 04/29/21 04/29/21 23:31 00:00 00:01 Temperature 99.1 F Pulse Rate 95 H 95 H 88 Pulse Rate [ Bilateral] Pulse Rate [ 91 H From Monitor] Respiratory 29 H 21 19 Rate Respiratory Rate [Bilateral ] Blood Pressure 120/57 120/57 O2 Sat by Pulse 93 93 95 Oximetry 04/29/21 04/29/21 04/29/21 00:31 00:42 01:00 Temperature Pulse Rate 97 H 89 90 Pulse Rate [ Bilateral] Pulse Rate [ From Monitor] Respiratory 26 H 23 Rate Respiratory Rate [Bilateral ] Blood Pressure 125/57 137/56 125/57 O2 Sat by Pulse 92 93 98 Oximetry 04/29/21 04/29/21 04/29/21 01:31 02:01 02:05 Temperature Pulse Rate 94 H 91 H Pulse Rate [ 93 H Bilateral] Pulse Rate [ From Monitor] Respiratory 25 H 22 Rate Respiratory 25 H Rate [Bilateral ] Blood Pressure 129/72 128/55 O2 Sat by Pulse 97 96 Oximetry 04/29/21 04/29/21 04/29/21 02:31 03:01 03:30 Temperature Pulse Rate 94 H 95 H 95 H Pulse Rate [ Bilateral] Pulse Rate [ From Monitor] Respiratory 21 26 H 22 Rate Respiratory Rate [Bilateral ] Blood Pressure 143/65 143/65 133/78 O2 Sat by Pulse 98 99 Oximetry 04/29/21 04/29/21 04/29/21 03:36 04:00 04:01 Temperature 99.3 F Pulse Rate 109 H 97 H Pulse Rate [ Bilateral] Pulse Rate [ 109 H From Monitor] Respiratory 19 26 H Rate Respiratory Rate [Bilateral ] Blood Pressure 133/78 O2 Sat by Pulse 99 100 Oximetry 04/29/21 04/29/21 04/29/21 04:02 04:31 05:01 Temperature Pulse Rate 91 H 91 H 109 H Pulse Rate [ Bilateral] Pulse Rate [ From Monitor] Respiratory 23 26 H Rate Respiratory Rate [Bilateral ] Blood Pressure 133/78 124/64 134/55 O2 Sat by Pulse 98 98 90 Oximetry 04/29/21 04/29/21 04/29/21 05:31 06:01 07:26 Temperature 100.1 F H Pulse Rate 94 H 94 H Pulse Rate [ Bilateral] Pulse Rate [ From Monitor] Respiratory 22 27 H Rate Respiratory Rate [Bilateral ] Blood Pressure 139/65 132/56 O2 Sat by Pulse 93 98 Oximetry 04/29/21 04/29/21 07:54 09:35 Temperature Pulse Rate 93 H 102 H Pulse Rate [ Bilateral] Pulse Rate [ From Monitor] Respiratory Rate Respiratory Rate [Bilateral ] Blood Pressure 130/52 126/59 O2 Sat by Pulse 98 Oximetry - Lab 04/29/21 04:22 04/30/21 05:54 Most recent lab results ABG pH 7.546 (7.320-7.450) H 04/29/21 03:24 ABG O2 Saturation 88.9 (0-100) 04/29/21 03:24 Calcium 9.4 mg/dL (8.4-10.2) 04/29/21 04:22 Phosphorus 2.60 mg/dL (2.5-4.5) 04/22/21 08:00 Magnesium 2.10 mg/dL (1.7-2.3) 04/23/21 07:02 Urine Creatinine 24.4 mg/dL (0.1-20.0) H 04/16/21 00:12 Urine Sodium 97 mmol/L 04/16/21 00:12 Medications & Allergies - Medications Allergies/Adverse Reactions: Allergies No Known Allergies Allergy (Unverified 04/15/21 17:41) Home Medications: Home Medications Medication Instructions Recorded Confirmed Last Taken Type Betaxolol HCl [Betoptic S 0.25% 1 drop OU BID 04/16/21 04/16/21 Unknown History SUSP] Bimatoprost [Lumigan 0.01%] 1 drop OU QPM 04/16/21 04/16/21 Unknown History Brimonidine Tartrate [Brimonidine 5 ml OU BID 04/16/21 04/16/21 Unknown History Tartrate 0.2%] Furosemide [Lasix TAB] 40 mg PO QDAY 04/16/21 04/16/21 Unknown History Gabapentin [Neurontin] 300 mg PO Q8HR 04/16/21 04/16/21 Unknown History HYDROcodone/APAP 10-325 [Valencia 1 each PO Q6HR PRN 04/16/21 04/16/21 Unknown History 10/325] Hydralazine HCl 50 mg PO Q4HR 04/16/21 04/16/21 Unknown History Insulin Aspart Prot/Insuln Asp 52 units SQ HS 04/16/21 04/16/21 Unknown History [Novolog Mix 70-30 Flexpen] Metoprolol [Lopressor] 25 mg PO BID 04/16/21 04/16/21 Unknown History Pravastatin [Pravachol] 20 mg PO QHS 04/16/21 04/16/21 Unknown History Promethazine [Phenergan] 25 mg PO Q6HR 04/16/21 04/16/21 Unknown History allopurinoL [Zyloprim] 150 mg PO QDAY 04/16/21 04/16/21 Unknown History Active Medications: Generic Name Dose Route Start Last Admin Trade Name Freq PRN Reason Stop Dose Admin Acetaminophen 650 mg 04/15/21 19:11 04/27/21 12:13 Acetaminophen 325 Mg Tab PO 650 mg Q6H PRN Administration Pain MILD(1-3)/Fever >100.5/SEXTON Albuterol/Ipratropium 1 ampul 04/24/21 14:00 04/29/21 07:57 Ipratropium/Albuterol Sulfate 3 Ml Ampul.Neb IH 1 ampul Q6HRT WOLFGANG Administration Amlodipine Besylate 10 mg 04/25/21 10:00 04/29/21 09:35 Amlodipine 10 Mg Tab PO 10 mg DAILY WOLFGANG Administration Lipase/Protease/Amylase 1 each 04/16/21 12:52 Lipase 10,500/Protease 25,000/Amylase 43,750 (Units) Dr Simpson FEEDTUBE PRN PRN For Clogged Feeding Tube Aspirin 81 mg 04/25/21 10:00 04/29/21 09:34 Aspirin 81 Mg Tab Chew PO 81 mg QDAY WOLFGANG Administration Bisacodyl 10 mg 04/17/21 11:01 04/28/21 21:04 Bisacodyl 10 Mg Rect Supp TX 10 mg QDAY PRN Administration Constipation Brimonidine Tartrate 1 drops 04/17/21 22:00 04/29/21 09:37 Brimonidine 0.15% Ophth Soln OU 1 drops BID WOLFGANG Administration Clopidogrel Bisulfate 75 mg 04/25/21 10:00 04/29/21 09:34 Clopidogrel 75 Mg Tab PO 75 mg QDAY WOLFGANG Administration Epinephrine 0.5 ml 04/21/21 12:56 Epinephrine Racemic 2.25% 0.5ml Nebu IH Q4HRT PRN Shortness Of Breath Famotidine 20 mg 04/17/21 10:00 04/29/21 09:34 Famotidine 20 Mg Tab PO 20 mg DAILY WOLFGANG Administration Fentanyl 50 mcg 04/24/21 13:03 Fentanyl 100 Mcg/2 Ml Inj IV Q10MIN PRN ANALGESIA Heparin Sodium (Porcine) 5,000 unit 04/15/21 22:00 04/29/21 09:36 Heparin 5,000 Unit/1 Ml Vial SUB-Q 5,000 unit Q12HR WOLFGANG Administration Hydralazine HCl 10 mg 04/16/21 18:00 04/24/21 05:25 Hydralazine 20 Mg/1 Ml Inj IV 10 mg Q4HR PRN Administration Hypertension Hydralazine HCl 100 mg 04/21/21 14:00 04/29/21 09:35 Hydralazine 100 Mg Tab PO 100 mg TID WOLFGANG Administration Hydrophilic Ointment 1 applic 04/15/21 17:24 Lip Therapy Vaseline TP Q2HR PRN Dry Lips Fentanyl Citrate 2,000 mcg in 100 mls @ 4.765 mls/hr 04/24/21 14:00 04/25/21 09:15 Fentanyl Drip Premix IV 0 mcg/kg/hr TITR WOLFGANG 0 mls/hr Titration Protocol 1 MCG/KG/HR Propofol 1,000 mg in 100 mls @ 2.859 mls/hr 04/24/21 14:00 04/25/21 09:10 Diprivan 10 Mg/Ml IV 0 mcg/kg/min TITR WOLFGANG 0 mls/hr Titration Protocol 5 MCG/KG/MIN Cefepime HCl 2 gm in 100 mls @ 200 mls/hr 04/27/21 10:00 04/29/21 09:35 Cefepime/Ns 2 Gm/100 Ml IV 200 mls/hr Q24H WOLFGANG Administration Protocol Insulin Glargine 40 units 04/28/21 08:00 04/29/21 09:35 Insulin Glargine 100 Units/Ml SUB-Q 40 units QAMDIAB WOLFGANG Administration Insulin Human Lispro 0 unit 04/16/21 15:00 04/29/21 05:31 Insulin Lispro 100 Unit/Ml SUB-Q 3 unit Q6HR WOLFGANG Administration Protocol Latanoprost 1 drops 04/17/21 18:00 04/28/21 18:24 Latanoprost 0.005% Ophth Soln 2.5 Ml OU 1 drops QPM WOLFGANG Administration Levothyroxine Sodium 25 mcg 04/19/21 06:00 04/29/21 05:31 Levothyroxine 25 Mcg Tab PO 25 mcg DAILY@0600 WOLFGANG Administration Metoprolol Tartrate 25 mg 04/19/21 10:00 04/29/21 09:35 Metoprolol Tartrate 25 Mg Tab PO 25 mg BID WOLFGANG Administration Multi-Ingred Cream/Lotion/Oil/Oint 1 applic 04/15/21 17:24 04/26/21 10:05 Mineral Oil/Petrolatum, White Ophth Oint 3.5 Gm OU 1 applic Q4HR PRN Administration Dry Eye(s) Pravastatin Sodium 20 mg 04/19/21 22:00 04/28/21 21:04 Pravastatin 20 Mg Tab PO 20 mg QHS WOLFGANG Administration Scopolamine 1 each 04/20/21 18:00 04/29/21 09:35 Scopolamine Transdermal Patch 72 Hr TD 1 each Q3D WOLFGANG Administration Simple Syrup 15 ml 04/16/21 12:52 Simple Syrup 15 Ml FEEDTUBE PRN PRN Hypoglycemia Simple Syrup 30 ml 04/16/21 12:52 Simple Syrup 15 Ml FEEDTUBE PRN PRN Hypoglycemia Sodium Bicarbonate 325 mg 04/16/21 12:52 Sodium Bicarbonate 325 Mg Tab FEEDTUBE PRN PRN For Clogged Feeding Tube Sodium Chloride 10 ml 04/15/21 22:00 04/29/21 09:37 Sodium Chloride 0.9% 10 Ml Flush Syringe IV 10 ml BID WOLFGANG Administration Sodium Chloride 10 ml 04/15/21 19:11 04/24/21 05:27 Sodium Chloride 0.9% 10 Ml Flush Syringe IV 10 ml PRN PRN Administration LINE FLUSH Tamsulosin HCl 0.4 mg 04/25/21 14:00 04/29/21 09:34 Tamsulosin 0.4 Mg Cap PO 0.4 mg QDAY WOLFGANG Administration Timolol Maleate 1 drops 04/19/21 10:00 04/29/21 09:36 Timolol 0.5% Ophth Soln 5 Ml OU 1 drops QDAY WOLFGANG Administration
--- NOTE | 2021-04-29 10:34 | Progress Note ---
Assessment and Plan Cultures: 04/15/2021 blood culture: No growth 04/15/2021 sputum culture: Contaminated 04/16/2021 urine culture: Mixed nilesh 04/16/2021 tracheal aspirate culture: Usual respiratory nilesh 04/18/2021 urine culture: 10K-100 K Pseudomonas aeruginosa 04/18/2021 blood culture: No growth 04/24/2021 resp culture: usual resp nilesh 04/26/2021 blood culture: No growth COVID-19 PCR: Negative A/P: 80-year-old female with diabetes mellitus, coronary artery disease, hypertension, breast cancer status post mastectomy, TIA was admitted to the hospital on 04/16/2021 with altered mental status and hypoglycemia: #Sepsis: Etiology unclear. Prolonged mechanical ventilation and ICU stay. Rule out bacteremia, new UTI. Chest x-ray from today does not reveal any pneumonia. ? some leucocytosis related to steroid use from 04/21/2021 to 04/24/2021. Monitor WBC, #Acute encephalopathy: Metabolic likely. #UTI with Pseudomonas: Recently treated with IV cefepime. #ROJELIO: Renally dose antibiotics. Recs: -WBC downtrending, Continue cefepime, renally dosed -cultures are negative, will stop vancomycin -monitor WBC and fever Cash Parks MD, FACP [facility] O: [phone] F: [phone] Subjective Date of service: 04/29/21 Principal diagnosis: Ac. resp failure; AMS; Hypoglycemia; ROJELIO; Hyperkalemia; DM II Interval history: Low grade temperature, otherwise no fever. Remains on the vent. Objective - Exam Narrative Exam: Physical Exam: Constitutional: sedated, intubated, on the vent Head, Ears, Nose: Normocephalic, atraumatic. External ears, nose normal Eyes: Conjunctivae/corneas clear. No icterus. No ptosis. Neck: intubated Oral: intubated Cardiovascular: S1, S2 + Respiratory: AE fair bilaterally and equal GI: Soft, bowel sounds + Musculoskeletal: No pedal edema, no cyanosis. Skin: No rash or abscess Hem/Lymphatic: No palpable cervical or supraclavicular nodes. No lymphangitis Psych: no agitation Neurological: sedated, intubated, on the vent, exam limited - Constitutional Vitals: Vital Signs Temp Pulse Resp BP Pulse Ox 100.1 F H 102 H 27 H 126/59 98 04/29/21 07:26 04/29/21 09:35 04/29/21 06:01 04/29/21 09:35 04/29/21 07:54 Temperature -Last 24 Hours Temperature 100.1 F Temperature 99.3 F Temperature 99.1 F Temperature 98.8 F Temperature 99.5 F - Labs CBC & Chem 7: 04/29/21 04:22 04/29/21 04:22 Labs: Abnormal lab results 04/28/21 04/28/21 04/28/21 Range/Units 05:01 11:28 18:23 WBC (4.5-11.0) K/mm3 RBC (3.65-5.03) M/mm3 Hgb (10.1-14.3) gm/dl ABG pH (7.320-7.450) POC ABG pO2 (83-108) mmHg ABG Hemoglobin (12.0-17.5) ABG Oxyhemoglobin (94-98) ABG Glucose (65-95) mg/dL Carboxyhemoglobin (0.5-1.5) Sodium (137-145) mmol/L BUN (7-17) mg/dL Creatinine (0.6-1.2) mg/dL Glucose (65-100) mg/dL POC Glucose 282 H 263 H 200 H (70-105) mg/dL Arterial Blood Glucose (65-95) mg/dL 04/28/21 04/29/21 04/29/21 Range/Units 23:49 03:24 04:22 WBC (4.5-11.0) K/mm3 RBC (3.65-5.03) M/mm3 Hgb (10.1-14.3) gm/dl ABG pH 7.546 H (7.320-7.450) POC ABG pO2 52.4 L (83-108) mmHg ABG Hemoglobin 10.5 L (12.0-17.5) ABG Oxyhemoglobin 88.3 L (94-98) ABG Glucose 217 H (65-95) mg/dL Carboxyhemoglobin 0.4 L (0.5-1.5) Sodium 148 H (137-145) mmol/L BUN 110 H (7-17) mg/dL Creatinine 3.1 H (0.6-1.2) mg/dL Glucose 208 H (65-100) mg/dL POC Glucose 238 H (70-105) mg/dL Arterial Blood Glucose 217 H (65-95) mg/dL 04/29/21 04/29/21 Range/Units 04:22 05:08 WBC 15.2 H (4.5-11.0) K/mm3 RBC 3.30 L (3.65-5.03) M/mm3 Hgb 9.8 L (10.1-14.3) gm/dl ABG pH (7.320-7.450) POC ABG pO2 (83-108) mmHg ABG Hemoglobin (12.0-17.5) ABG Oxyhemoglobin (94-98) ABG Glucose (65-95) mg/dL Carboxyhemoglobin (0.5-1.5) Sodium (137-145) mmol/L BUN (7-17) mg/dL Creatinine (0.6-1.2) mg/dL Glucose (65-100) mg/dL POC Glucose 181 H (70-105) mg/dL Arterial Blood Glucose (65-95) mg/dL
--- NOTE | 2021-04-29 14:48 | Progress Note ---
Assessment and Plan Acute respiratory failure, on mechanical ventilatory support. Acute toxic metabolic encephalopathy Hypoglycemia ROJELIO Hyperkalemia Rhabdomyolysis Possible seizure activity DM II HTN CAD Obesity H/O breast cancer H/O TIA Leukocytosis Elevated serum TSH, possible hypothyroidism Bowel regimen Continue with daily SBTs as tolerated- discussed with RT to attempt a second trial later this afternoon. Wean down sedation to allow for another trial- discussed with RN General surgery consult placed for tracheosotomy placement- will follow up - continue to titrate supplemental oxygen to keep SpO2 89-92% - VAP bundle addressed, aspiration precautions HOB>30 - continue lung protective strategies - continue bronchodilators with pulmonary hygiene per RT - continue Daily SAT and SBT assessment as tolerated - wean per pulmonary driven protocols otherwise - continue accuchecks with glycemic control per SSI (While critically ill target blood glucose of 140-180 mg/dL; avoid hypoglycemia) - sedation prn for target RASS 0 to -1 - avoid nephrotoxins, renally dose all medications - continue to avoid benzodiazepines, reduce the possibility of delirium - follow clinically off ABs; trend fevers / WBC -ABG and CXR as clinically indicated - prn analgesia per CPOT score - Maintenance of sleep-wake cycle, avoid delirium - continue enteral nutritional support at goal rate as tolerated - G.I. & VTE prophylaxis - PT/OT/ROM exercises - continue mobility protocols for pressure ulcer prophylaxis - Monitor hemodynamics closely - continue other care per attending / other consultants CONDITION: CRITICAL PROGNOSIS: GUARDED CODE STATUS: FULL CODE The high probability of a clinically significant, sudden or life-threatening deterioration of the [respiratory, cardiovascular, GI & neurologic] system(s) required my full and direct attention, intervention and personal management. The aggregate critical care time was [32] minutes without overlap. Time includes spent on; [x] Data Review and interpretation [x] Patient assessment and monitoring of vital signs [x] Documentation [x] Medication orders and management Subjective Date of service: 04/29/21 Principal diagnosis: Ac. resp failure; AMS; Hypoglycemia; ROJELIO; Hyperkalemia; DM II Interval history: Patient is seen today for: Acute respiratory failure; AMS; Hypoglycemia; ROJELIO; Hyperkalemia; DM II; H/O breast cancer; Elevated serum TSH, possible hypothyroi dism Seen and examined at bedside; 24hour events reviewed; nursing and respiratory care staff consulted; no adverse overnight events reported to me; resting peacefully in bed; remains on MVS; was tolerating daytime PSV with full support at night. She did not tolerate PSV today, apneic episodes No acute or adverse overnight events. No fevers, no diarrhea, no vomiting. Constipation Objective Vital Signs - 12hr 04/29/21 04/29/21 04/29/21 03:01 03:30 03:36 Temperature 99.3 F Pulse Rate 95 H 95 H Pulse Rate [ From Monitor] Respiratory 26 H 22 Rate Blood Pressure 143/65 133/78 O2 Sat by Pulse 99 Oximetry 04/29/21 04/29/21 04/29/21 04:00 04:01 04:02 Temperature Pulse Rate 109 H 97 H 91 H Pulse Rate [ 109 H From Monitor] Respiratory 19 26 H Rate Blood Pressure 133/78 133/78 O2 Sat by Pulse 99 100 98 Oximetry 04/29/21 04/29/21 04/29/21 04:31 05:01 05:31 Temperature Pulse Rate 91 H 109 H 94 H Pulse Rate [ From Monitor] Respiratory 23 26 H 22 Rate Blood Pressure 124/64 134/55 139/65 O2 Sat by Pulse 98 90 93 Oximetry 04/29/21 04/29/21 04/29/21 06:01 06:31 07:01 Temperature Pulse Rate 94 H 94 H 87 Pulse Rate [ From Monitor] Respiratory 27 H 20 21 Rate Blood Pressure 132/56 132/51 135/55 O2 Sat by Pulse 98 98 98 Oximetry 04/29/21 04/29/21 04/29/21 07:26 07:31 07:54 Temperature 100.1 F H Pulse Rate 90 93 H Pulse Rate [ From Monitor] Respiratory 16 Rate Blood Pressure 130/52 130/52 O2 Sat by Pulse 98 98 Oximetry 04/29/21 04/29/21 04/29/21 08:00 08:01 08:31 Temperature Pulse Rate 88 96 H 96 H Pulse Rate [ 87 From Monitor] Respiratory 21 24 25 H Rate Blood Pressure 130/52 125/84 O2 Sat by Pulse 100 100 100 Oximetry 04/29/21 04/29/21 04/29/21 09:01 09:31 09:35 Temperature Pulse Rate 93 H 96 H 102 H Pulse Rate [ From Monitor] Respiratory 21 23 Rate Blood Pressure 113/57 126/59 126/59 O2 Sat by Pulse 99 96 Oximetry 04/29/21 04/29/21 04/29/21 10:01 10:31 11:01 Temperature Pulse Rate 105 H 93 H 88 Pulse Rate [ From Monitor] Respiratory 21 24 21 Rate Blood Pressure 126/59 119/55 122/48 O2 Sat by Pulse 97 100 100 Oximetry 04/29/21 04/29/21 04/29/21 11:05 11:31 11:48 Temperature 99.9 F H Pulse Rate 89 90 Pulse Rate [ From Monitor] Respiratory 16 Rate Blood Pressure 122/48 131/56 O2 Sat by Pulse 100 98 Oximetry 04/29/21 04/29/21 04/29/21 12:00 12:01 12:30 Temperature Pulse Rate 89 95 H 87 Pulse Rate [ 90 From Monitor] Respiratory 20 22 21 Rate Blood Pressure 122/48 120/59 O2 Sat by Pulse 100 100 99 Oximetry 04/29/21 04/29/21 04/29/21 13:01 13:31 14:01 Temperature Pulse Rate 91 H 92 H 94 H Pulse Rate [ From Monitor] Respiratory 22 15 16 Rate Blood Pressure 138/51 138/51 131/59 O2 Sat by Pulse 98 98 98 Oximetry Constitutional: no acute distress, alert, other (elderly obese female with mildly increased respiratory effort at rest on MVS) Eyes: non-icteric (Patient obese and having mild respiratory distress at rest) ENT: oropharynx moist, other (ETT 24 cm RICARDO) Neck: supple, no lymphadenopathy, no JVD, other (large circumference) Effort: mildly labored Ascultation: Bilateral: clear, diminished breath sounds, rhonchi, other (mild stridorous sounds) Percussion: Bilateral: not dull Cardiovascular: regular rate and rhythm, other (S1,S2) Gastrointestinal: normoactive bowel sounds, hypoactive bowel sounds, non-tender, non-distended (protuberant), other (firm) Integumentary: normal Extremities: no cyanosis, no edema, pulses normal, no ischemia or petechiae Neurologic: non-focal exam (tracks voice), pupils equal and round Psychiatric: mood appropriate CBC and BMP: 04/29/21 04:22 04/30/21 05:54 ABG, PT/INR, D-dimer: ABG ABG pH 7.546 (7.320-7.450) H 04/29/21 03:24 POC ABG pCO2 32.1 mmHg (32.0-48.0) 04/29/21 03:24 POC ABG pO2 52.4 mmHg (83-108) L 04/29/21 03:24 POC ABG HCO3 27.2 04/29/21 03:24 ABG O2 Saturation 88.9 (0-100) 04/29/21 03:24 PT/INR, D-dimer PT 12.2 Sec. (12.2-14.9) 04/15/21 17:20 INR 0.91 (0.87-1.13) 04/15/21 17:20 Abnormal lab findings: Abnormal Labs 04/15/21 04/15/21 04/15/21 17:00 17:20 17:20 WBC 11.2 H RBC Hgb Hct 43.0 H MCV RDW 15.3 H Plt Count Lymph % (Auto) 12.8 L Seg Neutrophils % 82.4 H Seg Neuts % (Manual) Lymphocytes % (Manual) Monocytes % (Manual) Seg Neutrophils # 9.3 H Seg Neutrophils # Man Lymphocytes # (Manual) Monocytes # (Manual) ABG pH POC ABG pCO2 POC ABG pO2 ABG Hemoglobin ABG Oxyhemoglobin ABG Sodium ABG Potassium ABG Chloride ABG Glucose Carboxyhemoglobin Sodium 129 L Potassium 7.1 H* Chloride 91.9 L BUN 35 H Creatinine 2.8 H Glucose POC Glucose 191 H Calcium Phosphorus Magnesium AST 69 H ALT Total Creatine Kinase CK-MB (CK-2) Troponin T Total Protein Albumin HDL Cholesterol TSH Free T3 Index Arterial Blood Glucose Arterial Blood Ionized Calcium Urine pH Urine WBC (Auto) Urine Creatinine Acetaminophen 04/15/21 04/15/21 04/15/21 17:20 17:20 17:20 WBC RBC Hgb Hct MCV RDW Plt Count Lymph % (Auto) Seg Neutrophils % Seg Neuts % (Manual) Lymphocytes % (Manual) Monocytes % (Manual) Seg Neutrophils # Seg Neutrophils # Man Lymphocytes # (Manual) Monocytes # (Manual) ABG pH POC ABG pCO2 POC ABG pO2 ABG Hemoglobin ABG Oxyhemoglobin ABG Sodium ABG Potassium ABG Chloride ABG Glucose Carboxyhemoglobin Sodium Potassium Chloride BUN Creatinine Glucose POC Glucose Calcium Phosphorus Magnesium AST ALT Total Creatine Kinase 1000 H CK-MB (CK-2) Troponin T Total Protein Albumin HDL Cholesterol TSH 14.190 H Free T3 Index Arterial Blood Glucose Arterial Blood Ionized Calcium Urine pH Urine WBC (Auto) Urine Creatinine Acetaminophen 5.0 L 04/15/21 04/15/21 04/15/21 20:49 21:23 23:15 WBC RBC Hgb Hct MCV RDW Plt Count Lymph % (Auto) Seg Neutrophils % Seg Neuts % (Manual) Lymphocytes % (Manual) Monocytes % (Manual) Seg Neutrophils # Seg Neutrophils # Man Lymphocytes # (Manual) Monocytes # (Manual) ABG pH 7.557 H POC ABG pCO2 30.0 L POC ABG pO2 493.3 H ABG Hemoglobin ABG Oxyhemoglobin 99.0 H ABG Sodium 131.5 L ABG Potassium 4.7 H ABG Chloride 94.0 L ABG Glucose 218 H Carboxyhemoglobin Sodium Potassium Chloride BUN Creatinine Glucose POC Glucose 173 H 207 H Calcium Phosphorus Magnesium AST ALT Total Creatine Kinase CK-MB (CK-2) Troponin T Total Protein Albumin HDL Cholesterol TSH Free T3 Index Arterial Blood Glucose 218 H Arterial Blood Ionized Calcium 5.4 H Urine pH Urine WBC (Auto) Urine Creatinine Acetaminophen 04/16/21 04/16/21 04/16/21 00:09 00:12 00:19 WBC RBC Hgb Hct MCV RDW Plt Count Lymph % (Auto) Seg Neutrophils % Seg Neuts % (Manual) Lymphocytes % (Manual) Monocytes % (Manual) Seg Neutrophils # Seg Neutrophils # Man Lymphocytes # (Manual) Monocytes # (Manual) ABG pH POC ABG pCO2 POC ABG pO2 ABG Hemoglobin ABG Oxyhemoglobin ABG Sodium ABG Potassium ABG Chloride ABG Glucose Carboxyhemoglobin Sodium Potassium 6.7 H* Chloride BUN Creatinine Glucose POC Glucose Calcium Phosphorus Magnesium AST ALT Total Creatine Kinase CK-MB (CK-2) Troponin T Total Protein Albumin HDL Cholesterol TSH Free T3 Index Arterial Blood Glucose Arterial Blood Ionized Calcium Urine pH 9.0 H Urine WBC (Auto) Urine Creatinine 24.4 H Acetaminophen 04/16/21 04/16/21 04/16/21 03:43 03:55 05:02 WBC 21.2 H RBC Hgb Hct 43.4 H MCV 98 H RDW Plt Count Lymph % (Auto) Seg Neutrophils % Seg Neuts % (Manual) 84.0 H Lymphocytes % (Manual) 2.0 L Monocytes % (Manual) 10.0 H Seg Neutrophils # Seg Neutrophils # Man 17.8 H Lymphocytes # (Manual) 0.4 L Monocytes # (Manual) 2.1 H ABG pH 7.461 H POC ABG pCO2 POC ABG pO2 ABG Hemoglobin ABG Oxyhemoglobin ABG Sodium 126.8 L ABG Potassium 5.4 H ABG Chloride 90.0 L ABG Glucose 325 H Carboxyhemoglobin Sodium Potassium Chloride BUN Creatinine Glucose POC Glucose 391 H Calcium Phosphorus Magnesium AST ALT Total Creatine Kinase CK-MB (CK-2) Troponin T Total Protein Albumin HDL Cholesterol TSH Free T3 Index Arterial Blood Glucose 325 H Arterial Blood Ionized Calcium Urine pH Urine WBC (Auto) Urine Creatinine Acetaminophen 04/16/21 04/16/21 04/16/21 05:02 11:34 16:09 WBC RBC Hgb Hct MCV RDW Plt Count Lymph % (Auto) Seg Neutrophils % Seg Neuts % (Manual) Lymphocytes % (Manual) Monocytes % (Manual) Seg Neutrophils # Seg Neutrophils # Man Lymphocytes # (Manual) Monocytes # (Manual) ABG pH POC ABG pCO2 POC ABG pO2 ABG Hemoglobin ABG Oxyhemoglobin ABG Sodium ABG Potassium ABG Chloride ABG Glucose Carboxyhemoglobin Sodium 131 L Potassium 5.9 H Chloride 88.7 L BUN 34 H Creatinine 2.9 H Glucose 249 H POC Glucose 382 H 300 H Calcium 10.4 H Phosphorus Magnesium AST 65 H ALT Total Creatine Kinase CK-MB (CK-2) Troponin T Total Protein Albumin 3.8 L HDL Cholesterol TSH Free T3 Index Arterial Blood Glucose Arterial Blood Ionized Calcium Urine pH Urine WBC (Auto) Urine Creatinine Acetaminophen 04/16/21 04/16/21 04/16/21 18:15 19:01 19:01 WBC RBC Hgb Hct MCV RDW Plt Count Lymph % (Auto) Seg Neutrophils % Seg Neuts % (Manual) Lymphocytes % (Manual) Monocytes % (Manual) Seg Neutrophils # Seg Neutrophils # Man Lymphocytes # (Manual) Monocytes # (Manual) ABG pH POC ABG pCO2 POC ABG pO2 ABG Hemoglobin ABG Oxyhemoglobin ABG Sodium ABG Potassium ABG Chloride ABG Glucose Carboxyhemoglobin Sodium 125 L Potassium 5.5 H Chloride 84.5 L BUN 37 H Creatinine 3.5 H Glucose 236 H POC Glucose 287 H Calcium Phosphorus Magnesium AST ALT Total Creatine Kinase CK-MB (CK-2) Troponin T Total Protein Albumin HDL Cholesterol TSH Free T3 Index 1.1 L Arterial Blood Glucose Arterial Blood Ionized Calcium Urine pH Urine WBC (Auto) Urine Creatinine Acetaminophen 04/16/21 04/16/21 04/17/21 19:01 23:48 03:09 WBC RBC Hgb Hct MCV RDW Plt Count Lymph % (Auto) Seg Neutrophils % Seg Neuts % (Manual) Lymphocytes % (Manual) Monocytes % (Manual) Seg Neutrophils # Seg Neutrophils # Man Lymphocytes # (Manual) Monocytes # (Manual) ABG pH 7.518 H POC ABG pCO2 POC ABG pO2 ABG Hemoglobin ABG Oxyhemoglobin ABG Sodium 126.4 L ABG Potassium ABG Chloride 89.0 L ABG Glucose 200 H Carboxyhemoglobin Sodium Potassium 5.6 H Chloride BUN Creatinine Glucose POC Glucose 243 H Calcium Phosphorus Magnesium AST ALT Total Creatine Kinase CK-MB (CK-2) Troponin T Total Protein Albumin HDL Cholesterol TSH Free T3 Index Arterial Blood Glucose 200 H Arterial Blood Ionized Calcium 4.4 L Urine pH Urine WBC (Auto) Urine Creatinine Acetaminophen 04/17/21 04/17/21 04/17/21 05:04 06:14 11:55 WBC RBC Hgb Hct MCV RDW Plt Count Lymph % (Auto) Seg Neutrophils % Seg Neuts % (Manual) Lymphocytes % (Manual) Monocytes % (Manual) Seg Neutrophils # Seg Neutrophils # Man Lymphocytes # (Manual) Monocytes # (Manual) ABG pH POC ABG pCO2 POC ABG pO2 ABG Hemoglobin ABG Oxyhemoglobin ABG Sodium ABG Potassium ABG Chloride ABG Glucose Carboxyhemoglobin Sodium 129 L Potassium Chloride 86.1 L BUN 39 H Creatinine 3.5 H Glucose 202 H POC Glucose 208 H 276 H Calcium Phosphorus Magnesium AST ALT Total Creatine Kinase 750 H CK-MB (CK-2) Troponin T 0.119 H* D Total Protein Albumin HDL Cholesterol 61 H TSH Free T3 Index Arterial Blood Glucose Arterial Blood Ionized Calcium Urine pH Urine WBC (Auto) Urine Creatinine Acetaminophen 04/17/21 04/17/21 04/17/21 15:35 15:35 17:07 WBC 17.1 H RBC Hgb Hct MCV RDW Plt Count Lymph % (Auto) Seg Neutrophils % Seg Neuts % (Manual) Lymphocytes % (Manual) Monocytes % (Manual) Seg Neutrophils # Seg Neutrophils # Man Lymphocytes # (Manual) Monocytes # (Manual) ABG pH POC ABG pCO2 POC ABG pO2 ABG Hemoglobin ABG Oxyhemoglobin ABG Sodium ABG Potassium ABG Chloride ABG Glucose Carboxyhemoglobin Sodium Potassium Chloride BUN Creatinine Glucose POC Glucose 148 H Calcium Phosphorus Magnesium AST ALT Total Creatine Kinase 615 H CK-MB (CK-2) 9.1 H Troponin T Total Protein Albumin HDL Cholesterol TSH Free T3 Index Arterial Blood Glucose Arterial Blood Ionized Calcium Urine pH Urine WBC (Auto) Urine Creatinine Acetaminophen 04/18/21 04/18/21 04/18/21 00:01 03:00 05:24 WBC RBC Hgb Hct MCV RDW Plt Count Lymph % (Auto) Seg Neutrophils % Seg Neuts % (Manual) Lymphocytes % (Manual) Monocytes % (Manual) Seg Neutrophils # Seg Neutrophils # Man Lymphocytes # (Manual) Monocytes # (Manual) ABG pH 7.497 H POC ABG pCO2 POC ABG pO2 77.7 L ABG Hemoglobin 10.4 L ABG Oxyhemoglobin ABG Sodium 129.7 L ABG Potassium 2.8 L ABG Chloride 92.0 L ABG Glucose 134 H Carboxyhemoglobin 0.3 L Sodium Potassium Chloride BUN Creatinine Glucose POC Glucose 192 H 162 H Calcium Phosphorus Magnesium AST ALT Total Creatine Kinase CK-MB (CK-2) Troponin T Total Protein Albumin HDL Cholesterol TSH Free T3 Index Arterial Blood Glucose 134 H Arterial Blood Ionized Calcium 4.3 L Urine pH Urine WBC (Auto) Urine Creatinine Acetaminophen 04/18/21 04/18/21 04/18/21 05:34 05:34 05:43 WBC 15.3 H RBC 3.34 L Hgb Hct MCV RDW 15.3 H Plt Count Lymph % (Auto) Seg Neutrophils % Seg Neuts % (Manual) Lymphocytes % (Manual) Monocytes % (Manual) Seg Neutrophils # Seg Neutrophils # Man Lymphocytes # (Manual) Monocytes # (Manual) ABG pH POC ABG pCO2 POC ABG pO2 ABG Hemoglobin ABG Oxyhemoglobin ABG Sodium ABG Potassium ABG Chloride ABG Glucose Carboxyhemoglobin Sodium 134 L Potassium 3.0 L D Chloride 93.5 L BUN 42 H Creatinine 3.1 H Glucose 152 H POC Glucose Calcium Phosphorus Magnesium 1.40 L AST ALT Total Creatine Kinase 427 H CK-MB (CK-2) Troponin T 0.081 H D Total Protein Albumin HDL Cholesterol TSH Free T3 Index Arterial Blood Glucose Arterial Blood Ionized Calcium Urine pH Urine WBC (Auto) Urine Creatinine Acetaminophen 04/18/21 04/18/21 04/18/21 09:11 11:34 17:24 WBC RBC Hgb Hct MCV RDW Plt Count Lymph % (Auto) Seg Neutrophils % Seg Neuts % (Manual) Lymphocytes % (Manual) Monocytes % (Manual) Seg Neutrophils # Seg Neutrophils # Man Lymphocytes # (Manual) Monocytes # (Manual) ABG pH POC ABG pCO2 POC ABG pO2 ABG Hemoglobin ABG Oxyhemoglobin ABG Sodium ABG Potassium ABG Chloride ABG Glucose Carboxyhemoglobin Sodium Potassium Chloride BUN Creatinine Glucose POC Glucose 170 H 151 H Calcium Phosphorus Magnesium AST ALT Total Creatine Kinase CK-MB (CK-2) Troponin T Total Protein Albumin HDL Cholesterol TSH Free T3 Index Arterial Blood Glucose Arterial Blood Ionized Calcium Urine pH Urine WBC (Auto) 34.0 H Urine Creatinine Acetaminophen 04/18/21 04/19/21 04/19/21 23:18 04:09 05:19 WBC RBC Hgb Hct MCV RDW Plt Count Lymph % (Auto) Seg Neutrophils % Seg Neuts % (Manual) Lymphocytes % (Manual) Monocytes % (Manual) Seg Neutrophils # Seg Neutrophils # Man Lymphocytes # (Manual) Monocytes # (Manual) ABG pH 7.476 H POC ABG pCO2 POC ABG pO2 79.4 L ABG Hemoglobin 10.7 L ABG Oxyhemoglobin ABG Sodium 131.2 L ABG Potassium 2.8 L ABG Chloride 94.0 L ABG Glucose 209 H Carboxyhemoglobin 0.3 L Sodium Potassium Chloride BUN Creatinine Glucose POC Glucose 182 H 204 H Calcium Phosphorus Magnesium AST ALT Total Creatine Kinase CK-MB (CK-2) Troponin T Total Protein Albumin HDL Cholesterol TSH Free T3 Index Arterial Blood Glucose 209 H Arterial Blood Ionized Calcium Urine pH Urine WBC (Auto) Urine Creatinine Acetaminophen 04/19/21 04/19/21 04/19/21 07:30 07:30 10:35 WBC 14.8 H RBC 3.20 L Hgb Hct MCV 98 H RDW Plt Count 137 L Lymph % (Auto) Seg Neutrophils % Seg Neuts % (Manual) Lymphocytes % (Manual) Monocytes % (Manual) Seg Neutrophils # Seg Neutrophils # Man Lymphocytes # (Manual) Monocytes # (Manual) ABG pH 7.464 H POC ABG pCO2 POC ABG pO2 81.8 L ABG Hemoglobin 10.8 L ABG Oxyhemoglobin ABG Sodium 129.6 L ABG Potassium ABG Chloride 95.0 L ABG Glucose 238 H Carboxyhemoglobin Sodium 133 L Potassium 2.8 L* Chloride 94.4 L BUN 43 H Creatinine 2.7 H Glucose 255 H POC Glucose Calcium 8.0 L Phosphorus Magnesium AST ALT Total Creatine Kinase CK-MB (CK-2) Troponin T 0.060 H D Total Protein Albumin HDL Cholesterol TSH Free T3 Index Arterial Blood Glucose 238 H Arterial Blood Ionized Calcium Urine pH Urine WBC (Auto) Urine Creatinine Acetaminophen 04/19/21 04/19/21 04/19/21 11:48 20:40 23:04 WBC RBC Hgb Hct MCV RDW Plt Count Lymph % (Auto) Seg Neutrophils % Seg Neuts % (Manual) Lymphocytes % (Manual) Monocytes % (Manual) Seg Neutrophils # Seg Neutrophils # Man Lymphocytes # (Manual) Monocytes # (Manual) ABG pH POC ABG pCO2 POC ABG pO2 ABG Hemoglobin ABG Oxyhemoglobin ABG Sodium ABG Potassium ABG Chloride ABG Glucose Carboxyhemoglobin Sodium Potassium 3.4 L D Chloride BUN Creatinine Glucose POC Glucose 208 H 173 H Calcium Phosphorus Magnesium AST ALT Total Creatine Kinase CK-MB (CK-2) Troponin T Total Protein Albumin HDL Cholesterol TSH Free T3 Index Arterial Blood Glucose Arterial Blood Ionized Calcium Urine pH Urine WBC (Auto) Urine Creatinine Acetaminophen 04/20/21 04/20/21 04/20/21 02:56 03:32 03:32 WBC 13.2 H RBC 3.18 L Hgb Hct MCV RDW Plt Count Lymph % (Auto) Seg Neutrophils % Seg Neuts % (Manual) Lymphocytes % (Manual) Monocytes % (Manual) Seg Neutrophils # Seg Neutrophils # Man Lymphocytes # (Manual) Monocytes # (Manual) ABG pH 7.526 H POC ABG pCO2 POC ABG pO2 ABG Hemoglobin 10.5 L ABG Oxyhemoglobin ABG Sodium 133.5 L ABG Potassium ABG Chloride ABG Glucose 157 H Carboxyhemoglobin 0.3 L Sodium 135 L Potassium Chloride 96.7 L BUN 40 H Creatinine 2.3 H Glucose 142 H POC Glucose Calcium Phosphorus Magnesium AST ALT Total Creatine Kinase CK-MB (CK-2) Troponin T 0.065 H Total Protein Albumin HDL Cholesterol TSH Free T3 Index Arterial Blood Glucose 157 H Arterial Blood Ionized Calcium Urine pH Urine WBC (Auto) Urine Creatinine Acetaminophen 04/20/21 04/20/21 04/20/21 03:46 05:42 11:50 WBC RBC Hgb Hct MCV RDW Plt Count Lymph % (Auto) Seg Neutrophils % Seg Neuts % (Manual) Lymphocytes % (Manual) Monocytes % (Manual) Seg Neutrophils # Seg Neutrophils # Man Lymphocytes # (Manual) Monocytes # (Manual) ABG pH POC ABG pCO2 POC ABG pO2 ABG Hemoglobin ABG Oxyhemoglobin ABG Sodium ABG Potassium ABG Chloride ABG Glucose Carboxyhemoglobin Sodium Potassium Chloride BUN Creatinine Glucose POC Glucose 160 H 194 H Calcium Phosphorus 2.10 L Magnesium AST ALT Total Creatine Kinase CK-MB (CK-2) Troponin T Total Protein Albumin HDL Cholesterol TSH Free T3 Index Arterial Blood Glucose Arterial Blood Ionized Calcium Urine pH Urine WBC (Auto) Urine Creatinine Acetaminophen 04/20/21 04/20/21 04/21/21 17:09 23:18 05:26 WBC RBC Hgb Hct MCV RDW Plt Count Lymph % (Auto) Seg Neutrophils % Seg Neuts % (Manual) Lymphocytes % (Manual) Monocytes % (Manual) Seg Neutrophils # Seg Neutrophils # Man Lymphocytes # (Manual) Monocytes # (Manual) ABG pH POC ABG pCO2 POC ABG pO2 ABG Hemoglobin ABG Oxyhemoglobin ABG Sodium ABG Potassium ABG Chloride ABG Glucose Carboxyhemoglobin Sodium Potassium Chloride BUN Creatinine Glucose POC Glucose 153 H 162 H 164 H Calcium Phosphorus Magnesium AST ALT Total Creatine Kinase CK-MB (CK-2) Troponin T Total Protein Albumin HDL Cholesterol TSH Free T3 Index Arterial Blood Glucose Arterial Blood Ionized Calcium Urine pH Urine WBC (Auto) Urine Creatinine Acetaminophen 04/21/21 04/21/21 04/21/21 05:51 05:51 12:12 WBC RBC 3.20 L Hgb Hct MCV 99 H RDW 15.3 H Plt Count Lymph % (Auto) Seg Neutrophils % Seg Neuts % (Manual) Lymphocytes % (Manual) Monocytes % (Manual) Seg Neutrophils # Seg Neutrophils # Man Lymphocytes # (Manual) Monocytes # (Manual) ABG pH POC ABG pCO2 POC ABG pO2 ABG Hemoglobin ABG Oxyhemoglobin ABG Sodium ABG Potassium ABG Chloride ABG Glucose Carboxyhemoglobin Sodium Potassium Chloride 96.6 L BUN 42 H Creatinine 2.1 H Glucose 171 H POC Glucose 167 H Calcium Phosphorus Magnesium AST ALT Total Creatine Kinase CK-MB (CK-2) Troponin T Total Protein Albumin HDL Cholesterol TSH Free T3 Index Arterial Blood Glucose Arterial Blood Ionized Calcium Urine pH Urine WBC (Auto) Urine Creatinine Acetaminophen 04/21/21 04/21/21 04/22/21 17:13 23:42 05:29 WBC RBC Hgb Hct MCV RDW Plt Count Lymph % (Auto) Seg Neutrophils % Seg Neuts % (Manual) Lymphocytes % (Manual) Monocytes % (Manual) Seg Neutrophils # Seg Neutrophils # Man Lymphocytes # (Manual) Monocytes # (Manual) ABG pH POC ABG pCO2 POC ABG pO2 ABG Hemoglobin ABG Oxyhemoglobin ABG Sodium ABG Potassium ABG Chloride ABG Glucose Carboxyhemoglobin Sodium Potassium Chloride BUN Creatinine Glucose POC Glucose 178 H 253 H 208 H Calcium Phosphorus Magnesium AST ALT Total Creatine Kinase CK-MB (CK-2) Troponin T Total Protein Albumin HDL Cholesterol TSH Free T3 Index Arterial Blood Glucose Arterial Blood Ionized Calcium Urine pH Urine WBC (Auto) Urine Creatinine Acetaminophen 04/22/21 04/22/21 04/22/21 08:00 08:00 12:06 WBC 12.9 H RBC Hgb Hct MCV RDW Plt Count Lymph % (Auto) Seg Neutrophils % Seg Neuts % (Manual) Lymphocytes % (Manual) Monocytes % (Manual) Seg Neutrophils # Seg Neutrophils # Man Lymphocytes # (Manual) Monocytes # (Manual) ABG pH POC ABG pCO2 POC ABG pO2 ABG Hemoglobin ABG Oxyhemoglobin ABG Sodium ABG Potassium ABG Chloride ABG Glucose Carboxyhemoglobin Sodium Potassium Chloride BUN 47 H Creatinine 1.9 H Glucose 252 H POC Glucose 298 H Calcium Phosphorus Magnesium AST ALT Total Creatine Kinase CK-MB (CK-2) Troponin T Total Protein Albumin HDL Cholesterol TSH Free T3 Index Arterial Blood Glucose Arterial Blood Ionized Calcium Urine pH Urine WBC (Auto) Urine Creatinine Acetaminophen 04/22/21 04/22/21 04/23/21 17:34 23:01 05:08 WBC RBC Hgb Hct MCV RDW Plt Count Lymph % (Auto) Seg Neutrophils % Seg Neuts % (Manual) Lymphocytes % (Manual) Monocytes % (Manual) Seg Neutrophils # Seg Neutrophils # Man Lymphocytes # (Manual) Monocytes # (Manual) ABG pH POC ABG pCO2 POC ABG pO2 ABG Hemoglobin ABG Oxyhemoglobin ABG Sodium ABG Potassium ABG Chloride ABG Glucose Carboxyhemoglobin Sodium Potassium Chloride BUN Creatinine Glucose POC Glucose 259 H 280 H 223 H Calcium Phosphorus Magnesium AST ALT Total Creatine Kinase CK-MB (CK-2) Troponin T Total Protein Albumin HDL Cholesterol TSH Free T3 Index Arterial Blood Glucose Arterial Blood Ionized Calcium Urine pH Urine WBC (Auto) Urine Creatinine Acetaminophen 04/23/21 04/23/21 04/23/21 07:02 11:57 17:33 WBC RBC Hgb Hct MCV RDW Plt Count Lymph % (Auto) Seg Neutrophils % Seg Neuts % (Manual) Lymphocytes % (Manual) Monocytes % (Manual) Seg Neutrophils # Seg Neutrophils # Man Lymphocytes # (Manual) Monocytes # (Manual) ABG pH POC ABG pCO2 POC ABG pO2 ABG Hemoglobin ABG Oxyhemoglobin ABG Sodium ABG Potassium ABG Chloride ABG Glucose Carboxyhemoglobin Sodium Potassium Chloride 97.7 L BUN 57 H Creatinine 2.0 H Glucose 253 H POC Glucose 310 H 235 H Calcium Phosphorus Magnesium AST ALT Total Creatine Kinase CK-MB (CK-2) Troponin T Total Protein Albumin HDL Cholesterol TSH Free T3 Index Arterial Blood Glucose Arterial Blood Ionized Calcium Urine pH Urine WBC (Auto) Urine Creatinine Acetaminophen 04/23/21 04/24/21 04/24/21 23:15 05:23 05:46 WBC RBC Hgb Hct MCV RDW Plt Count Lymph % (Auto) Seg Neutrophils % Seg Neuts % (Manual) Lymphocytes % (Manual) Monocytes % (Manual) Seg Neutrophils # Seg Neutrophils # Man Lymphocytes # (Manual) Monocytes # (Manual) ABG pH POC ABG pCO2 POC ABG pO2 ABG Hemoglobin ABG Oxyhemoglobin ABG Sodium ABG Potassium ABG Chloride ABG Glucose Carboxyhemoglobin Sodium Potassium 5.2 H D Chloride BUN 68 H Creatinine 2.3 H Glucose 277 H POC Glucose 197 H 274 H Calcium Phosphorus Magnesium AST ALT Total Creatine Kinase CK-MB (CK-2) Troponin T Total Protein Albumin HDL Cholesterol TSH Free T3 Index Arterial Blood Glucose Arterial Blood Ionized Calcium Urine pH Urine WBC (Auto) Urine Creatinine Acetaminophen 04/24/21 04/24/21 04/24/21 11:33 11:52 17:49 WBC RBC Hgb Hct MCV RDW Plt Count Lymph % (Auto) Seg Neutrophils % Seg Neuts % (Manual) Lymphocytes % (Manual) Monocytes % (Manual) Seg Neutrophils # Seg Neutrophils # Man Lymphocytes # (Manual) Monocytes # (Manual) ABG pH POC ABG pCO2 POC ABG pO2 72.7 L ABG Hemoglobin 11.6 L ABG Oxyhemoglobin 92.9 L ABG Sodium ABG Potassium ABG Chloride ABG Glucose 269 H Carboxyhemoglobin Sodium Potassium Chloride BUN Creatinine Glucose POC Glucose 223 H 252 H Calcium Phosphorus Magnesium AST ALT Total Creatine Kinase CK-MB (CK-2) Troponin T Total Protein Albumin HDL Cholesterol TSH Free T3 Index Arterial Blood Glucose 269 H Arterial Blood Ionized Calcium Urine pH Urine WBC (Auto) Urine Creatinine Acetaminophen 0504/24/21 04/25/21 21:00 23:48 03:06 WBC RBC Hgb Hct MCV RDW Plt Count Lymph % (Auto) Seg Neutrophils % Seg Neuts % (Manual) Lymphocytes % (Manual) Monocytes % (Manual) Seg Neutrophils # Seg Neutrophils # Man Lymphocytes # (Manual) Monocytes # (Manual) ABG pH 7.521 H 7.451 H POC ABG pCO2 POC ABG pO2 80.7 L 77.1 L ABG Hemoglobin 10.4 L 11.2 L ABG Oxyhemoglobin ABG Sodium ABG Potassium ABG Chloride ABG Glucose 186 H 165 H Carboxyhemoglobin 0 L Sodium Potassium Chloride BUN Creatinine Glucose POC Glucose 141 H Calcium Phosphorus Magnesium AST ALT Total Creatine Kinase CK-MB (CK-2) Troponin T Total Protein Albumin HDL Cholesterol TSH Free T3 Index Arterial Blood Glucose 186 H 165 H Arterial Blood Ionized Calcium Urine pH Urine WBC (Auto) Urine Creatinine Acetaminophen 04/25/21 04/25/21 04/25/21 03:56 03:56 06:03 WBC 12.3 H RBC 3.40 L Hgb Hct MCV RDW Plt Count Lymph % (Auto) Seg Neutrophils % Seg Neuts % (Manual) Lymphocytes % (Manual) Monocytes % (Manual) Seg Neutrophils # Seg Neutrophils # Man Lymphocytes # (Manual) Monocytes # (Manual) ABG pH POC ABG pCO2 POC ABG pO2 ABG Hemoglobin ABG Oxyhemoglobin ABG Sodium ABG Potassium ABG Chloride ABG Glucose Carboxyhemoglobin Sodium Potassium Chloride BUN 78 H Creatinine 2.5 H Glucose 152 H POC Glucose 171 H Calcium Phosphorus Magnesium AST ALT Total Creatine Kinase CK-MB (CK-2) Troponin T Total Protein Albumin HDL Cholesterol TSH Free T3 Index Arterial Blood Glucose Arterial Blood Ionized Calcium Urine pH Urine WBC (Auto) Urine Creatinine Acetaminophen 04/25/21 04/25/21 04/26/21 11:43 15:37 00:05 WBC RBC Hgb Hct MCV RDW Plt Count Lymph % (Auto) Seg Neutrophils % Seg Neuts % (Manual) Lymphocytes % (Manual) Monocytes % (Manual) Seg Neutrophils # Seg Neutrophils # Man Lymphocytes # (Manual) Monocytes # (Manual) ABG pH POC ABG pCO2 POC ABG pO2 ABG Hemoglobin ABG Oxyhemoglobin ABG Sodium ABG Potassium ABG Chloride ABG Glucose Carboxyhemoglobin Sodium Potassium Chloride BUN Creatinine Glucose POC Glucose 181 H 167 H 144 H Calcium Phosphorus Magnesium AST ALT Total Creatine Kinase CK-MB (CK-2) Troponin T Total Protein Albumin HDL Cholesterol TSH Free T3 Index Arterial Blood Glucose Arterial Blood Ionized Calcium Urine pH Urine WBC (Auto) Urine Creatinine Acetaminophen 04/26/21 04/26/21 04/26/21 04:30 05:44 09:30 WBC RBC Hgb Hct MCV RDW Plt Count Lymph % (Auto) Seg Neutrophils % Seg Neuts % (Manual) Lymphocytes % (Manual) Monocytes % (Manual) Seg Neutrophils # Seg Neutrophils # Man Lymphocytes # (Manual) Monocytes # (Manual) ABG pH 7.529 H POC ABG pCO2 POC ABG pO2 66.1 L ABG Hemoglobin 11.2 L ABG Oxyhemoglobin 92.8 L ABG Sodium ABG Potassium ABG Chloride ABG Glucose 216 H Carboxyhemoglobin 0.3 L Sodium Potassium Chloride BUN 82 H Creatinine 2.7 H Glucose 238 H POC Glucose 202 H Calcium Phosphorus Magnesium AST ALT Total Creatine Kinase CK-MB (CK-2) Troponin T Total Protein Albumin HDL Cholesterol TSH Free T3 Index Arterial Blood Glucose 216 H Arterial Blood Ionized Calcium Urine pH Urine WBC (Auto) Urine Creatinine Acetaminophen 04/26/21 04/26/21 04/26/21 09:30 11:32 17:21 WBC 24.7 H RBC 3.32 L Hgb Hct MCV RDW Plt Count Lymph % (Auto) Seg Neutrophils % Seg Neuts % (Manual) Lymphocytes % (Manual) Monocytes % (Manual) Seg Neutrophils # Seg Neutrophils # Man Lymphocytes # (Manual) Monocytes # (Manual) ABG pH POC ABG pCO2 POC ABG pO2 ABG Hemoglobin ABG Oxyhemoglobin ABG Sodium ABG Potassium ABG Chloride ABG Glucose Carboxyhemoglobin Sodium Potassium Chloride BUN Creatinine Glucose POC Glucose 245 H 264 H Calcium Phosphorus Magnesium AST ALT Total Creatine Kinase CK-MB (CK-2) Troponin T Total Protein Albumin HDL Cholesterol TSH Free T3 Index Arterial Blood Glucose Arterial Blood Ionized Calcium Urine pH Urine WBC (Auto) Urine Creatinine Acetaminophen 04/26/21 04/27/21 04/27/21 23:18 04:23 04:54 WBC RBC Hgb Hct MCV RDW Plt Count Lymph % (Auto) Seg Neutrophils % Seg Neuts % (Manual) Lymphocytes % (Manual) Monocytes % (Manual) Seg Neutrophils # Seg Neutrophils # Man Lymphocytes # (Manual) Monocytes # (Manual) ABG pH 7.549 H POC ABG pCO2 30.0 L POC ABG pO2 64.9 L ABG Hemoglobin 11 L ABG Oxyhemoglobin 93.3 L ABG Sodium ABG Potassium ABG Chloride ABG Glucose 325 H Carboxyhemoglobin 0.3 L Sodium Potassium Chloride BUN Creatinine Glucose POC Glucose 201 H 298 H Calcium Phosphorus Magnesium AST ALT Total Creatine Kinase CK-MB (CK-2) Troponin T Total Protein Albumin HDL Cholesterol TSH Free T3 Index Arterial Blood Glucose 325 H Arterial Blood Ionized Calcium Urine pH Urine WBC (Auto) Urine Creatinine Acetaminophen 04/27/21 04/27/21 04/27/21 07:52 07:52 11:22 WBC 23.0 H RBC 3.32 L Hgb Hct MCV RDW 15.5 H Plt Count Lymph % (Auto) Seg Neutrophils % Seg Neuts % (Manual) Lymphocytes % (Manual) Monocytes % (Manual) Seg Neutrophils # Seg Neutrophils # Man Lymphocytes # (Manual) Monocytes # (Manual) ABG pH POC ABG pCO2 POC ABG pO2 ABG Hemoglobin ABG Oxyhemoglobin ABG Sodium ABG Potassium ABG Chloride ABG Glucose Carboxyhemoglobin Sodium Potassium 3.5 L Chloride BUN 90 H Creatinine 2.8 H Glucose 286 H POC Glucose 251 H Calcium Phosphorus Magnesium AST ALT Total Creatine Kinase CK-MB (CK-2) Troponin T Total Protein Albumin HDL Cholesterol TSH Free T3 Index Arterial Blood Glucose Arterial Blood Ionized Calcium Urine pH Urine WBC (Auto) Urine Creatinine Acetaminophen 04/27/21 04/27/21 04/27/21 17:21 17:45 23:05 WBC RBC Hgb Hct MCV RDW Plt Count Lymph % (Auto) Seg Neutrophils % Seg Neuts % (Manual) Lymphocytes % (Manual) Monocytes % (Manual) Seg Neutrophils # Seg Neutrophils # Man Lymphocytes # (Manual) Monocytes # (Manual) ABG pH POC ABG pCO2 POC ABG pO2 ABG Hemoglobin ABG Oxyhemoglobin ABG Sodium ABG Potassium ABG Chloride ABG Glucose Carboxyhemoglobin Sodium Potassium Chloride BUN Creatinine Glucose POC Glucose 180 H 178 H 189 H Calcium Phosphorus Magnesium AST ALT Total Creatine Kinase CK-MB (CK-2) Troponin T Total Protein Albumin HDL Cholesterol TSH Free T3 Index Arterial Blood Glucose Arterial Blood Ionized Calcium Urine pH Urine WBC (Auto) Urine Creatinine Acetaminophen 04/28/21 04/28/21 04/28/21 03:14 04:13 04:13 WBC 17.6 H RBC 3.03 L Hgb 9.7 L Hct 29.5 L MCV RDW Plt Count Lymph % (Auto) Seg Neutrophils % Seg Neuts % (Manual) Lymphocytes % (Manual) Monocytes % (Manual) Seg Neutrophils # Seg Neutrophils # Man Lymphocytes # (Manual) Monocytes # (Manual) ABG pH 7.507 H POC ABG pCO2 POC ABG pO2 62.0 L ABG Hemoglobin 10.2 L ABG Oxyhemoglobin 91.9 L ABG Sodium ABG Potassium ABG Chloride ABG Glucose 337 H Carboxyhemoglobin 0.2 L Sodium Potassium Chloride BUN 101 H Creatinine 3.1 H Glucose 304 H POC Glucose Calcium Phosphorus Magnesium AST 61 H ALT 64 H Total Creatine Kinase CK-MB (CK-2) Troponin T Total Protein 6.2 L Albumin 2.6 L HDL Cholesterol TSH Free T3 Index Arterial Blood Glucose 337 H Arterial Blood Ionized Calcium Urine pH Urine WBC (Auto) Urine Creatinine Acetaminophen 04/28/21 04/28/21 04/28/21 05:01 11:28 18:23 WBC RBC Hgb Hct MCV RDW Plt Count Lymph % (Auto) Seg Neutrophils % Seg Neuts % (Manual) Lymphocytes % (Manual) Monocytes % (Manual) Seg Neutrophils # Seg Neutrophils # Man Lymphocytes # (Manual) Monocytes # (Manual) ABG pH POC ABG pCO2 POC ABG pO2 ABG Hemoglobin ABG Oxyhemoglobin ABG Sodium ABG Potassium ABG Chloride ABG Glucose Carboxyhemoglobin Sodium Potassium Chloride BUN Creatinine Glucose POC Glucose 282 H 263 H 200 H Calcium Phosphorus Magnesium AST ALT Total Creatine Kinase CK-MB (CK-2) Troponin T Total Protein Albumin HDL Cholesterol TSH Free T3 Index Arterial Blood Glucose Arterial Blood Ionized Calcium Urine pH Urine WBC (Auto) Urine Creatinine Acetaminophen 04/28/21 04/29/21 04/29/21 23:49 03:24 04:22 WBC RBC Hgb Hct MCV RDW Plt Count Lymph % (Auto) Seg Neutrophils % Seg Neuts % (Manual) Lymphocytes % (Manual) Monocytes % (Manual) Seg Neutrophils # Seg Neutrophils # Man Lymphocytes # (Manual) Monocytes # (Manual) ABG pH 7.546 H POC ABG pCO2 POC ABG pO2 52.4 L ABG Hemoglobin 10.5 L ABG Oxyhemoglobin 88.3 L ABG Sodium ABG Potassium ABG Chloride ABG Glucose 217 H Carboxyhemoglobin 0.4 L Sodium 148 H Potassium Chloride BUN 110 H Creatinine 3.1 H Glucose 208 H POC Glucose 238 H Calcium Phosphorus Magnesium AST ALT Total Creatine Kinase CK-MB (CK-2) Troponin T Total Protein Albumin HDL Cholesterol TSH Free T3 Index Arterial Blood Glucose 217 H Arterial Blood Ionized Calcium Urine pH Urine WBC (Auto) Urine Creatinine Acetaminophen 04/29/21 04/29/21 04/29/21 04:22 05:08 11:26 WBC 15.2 H RBC 3.30 L Hgb 9.8 L Hct MCV RDW Plt Count Lymph % (Auto) Seg Neutrophils % Seg Neuts % (Manual) Lymphocytes % (Manual) Monocytes % (Manual) Seg Neutrophils # Seg Neutrophils # Man Lymphocytes # (Manual) Monocytes # (Manual) ABG pH POC ABG pCO2 POC ABG pO2 ABG Hemoglobin ABG Oxyhemoglobin ABG Sodium ABG Potassium ABG Chloride ABG Glucose Carboxyhemoglobin Sodium Potassium Chloride BUN Creatinine Glucose POC Glucose 181 H 218 H Calcium Phosphorus Magnesium AST ALT Total Creatine Kinase CK-MB (CK-2) Troponin T Total Protein Albumin HDL Cholesterol TSH Free T3 Index Arterial Blood Glucose Arterial Blood Ionized Calcium Urine pH Urine WBC (Auto) Urine Creatinine Acetaminophen Allied health notes reviewed: RT
[2021-04-29] MEDS: DOCUSATE SODIUM 100 MG/10 ML ORAL LIQD PO SCH ×2 (16:55→21:33)
[2021-04-29] MEDS: LATANOPROST 0.005% OPHTH SOLN 2.5 ML OU SCH (17:48)
[2021-04-29] MEDS: PRAVASTATIN 20 MG TAB PO SCH (21:33)
[2021-04-30] MEDS: IPRATROPIUM/ALBUTEROL SULFATE 3 ML AMPUL.NEB IH SCH ×4 (02:31→19:50)
[2021-04-30] MEDS: LEVOTHYROXINE 25 MCG TAB PO SCH (05:27)
[2021-04-30] MEDS: INSULIN LISPRO 100 UNIT/ML SUB-Q SCH ×3 (05:27→17:31)
[2021-04-30 06:56] LABS: Calcium 9.2 mg/dL (8.4-10.2)
[2021-04-30] MEDS ORDERED: NORepinephrine/NS 4 MG-250 ML 4 MG/250 ML BAG IV ONE (07:36)
[2021-04-30] MEDS: INSULIN GLARGINE 100 UNITS/ML SUB-Q SCH (08:44)
[2021-04-30] MEDS: hydrALAZINE 100 MG TAB PO SCH ×3 (08:49→20:00)
--- NOTE | 2021-04-30 09:22 | Progress Note ---
Assessment and Plan Acute respiratory failure, on mechanical ventilatory support. Acute toxic metabolic encephalopathy Hypoglycemia ROJELIO Hyperkalemia Rhabdomyolysis Possible seizure activity DM II HTN CAD Obesity H/O breast cancer H/O TIA Leukocytosis Elevated serum TSH, possible hypothyroidism Bowel regimen Continue with daily SBTs as tolerated- discussed with RT to attempt a second trial later this afternoon. Wean down sedation to allow for another trial- discussed with RN General surgery consult placed for tracheostomy placement- will hold Plavix for 5 days and plan for tracheostomy - continue to titrate supplemental oxygen to keep SpO2 89-92% - VAP bundle addressed, aspiration precautions HOB>30 - continue lung protective strategies - continue bronchodilators with pulmonary hygiene per RT - continue Daily SAT and SBT assessment as tolerated - wean per pulmonary driven protocols otherwise - continue accuchecks with glycemic control per SSI (While critically ill target blood glucose of 140-180 mg/dL; avoid hypoglycemia) - sedation prn for target RASS 0 to -1 - avoid nephrotoxins, renally dose all medications - continue to avoid benzodiazepines, reduce the possibility of delirium - follow clinically off ABs; trend fevers / WBC -ABG and CXR as clinically indicated - prn analgesia per CPOT score - Maintenance of sleep-wake cycle, avoid delirium - continue enteral nutritional support at goal rate as tolerated - G.I. & VTE prophylaxis - PT/OT/ROM exercises - continue mobility protocols for pressure ulcer prophylaxis - Monitor hemodynamics closely - continue other care per attending / other consultants CONDITION: CRITICAL PROGNOSIS: GUARDED CODE STATUS: FULL CODE The high probability of a clinically significant, sudden or life-threatening deterioration of the [respiratory, cardiovascular, GI & neurologic] system(s) required my full and direct attention, intervention and personal management. The aggregate critical care time was [32] minutes without overlap. Time includes spent on; [x] Data Review and interpretation [x] Patient assessment and monitoring of vital signs [x] Documentation [x] Medication orders and management Subjective Date of service: 04/30/21 Principal diagnosis: Ac. resp failure; AMS; Hypoglycemia; ROJELIO; Hyperkalemia; DM II Interval history: Patient is seen today for: Acute respiratory failure; AMS; Hypoglycemia; ROJELIO; Hyperkalemia; DM II; H/O breast cancer; Elevated serum TSH, possible hypothyroidism Seen and examined at bedside; 24hour events reviewed; nursing and respiratory care staff consulted; no adverse overnight events reported to me; resting peacefully in bed; remains on MVS; She did not tolerate PSV today, increased work of breathing No acute or adverse overnight events. No fevers, no diarrhea, no vomiting. Seen by General surgery, unable to get trach done, patient is on Plavix Objective Vital Signs - 12hr 04/29/21 04/29/21 04/29/21 21:30 21:33 22:00 Temperature Pulse Rate 102 H 104 H 99 H Pulse Rate [ Bilateral] Pulse Rate [ From Monitor] Respiratory 22 21 Rate Respiratory Rate [Bilateral ] Blood Pressure 115/49 133/52 115/49 O2 Sat by Pulse 97 98 Oximetry 04/29/21 04/29/21 04/29/21 22:04 22:30 23:00 Temperature Pulse Rate 104 H 100 H 97 H Pulse Rate [ Bilateral] Pulse Rate [ From Monitor] Respiratory 22 25 H 24 Rate Respiratory Rate [Bilateral ] Blood Pressure 118/45 118/45 123/50 O2 Sat by Pulse 97 98 97 Oximetry 04/29/21 04/29/21 04/29/21 23:30 23:31 23:33 Temperature 99.8 F H Pulse Rate 101 H 101 H Pulse Rate [ Bilateral] Pulse Rate [ From Monitor] Respiratory 24 Rate Respiratory Rate [Bilateral ] Blood Pressure 117/49 125/56 O2 Sat by Pulse 98 99 Oximetry 04/30/21 04/30/21 04/30/21 00:00 00:30 01:00 Temperature Pulse Rate 94 H 101 H 89 Pulse Rate [ Bilateral] Pulse Rate [ 99 H From Monitor] Respiratory 22 25 H 22 Rate Respiratory Rate [Bilateral ] Blood Pressure 117/49 125/56 132/53 O2 Sat by Pulse 99 100 99 Oximetry 04/30/21 04/30/21 04/30/21 01:30 02:00 02:30 Temperature Pulse Rate 95 H 96 H 93 H Pulse Rate [ Bilateral] Pulse Rate [ From Monitor] Respiratory 24 25 H 17 Rate Respiratory Rate [Bilateral ] Blood Pressure 125/50 125/50 125/56 O2 Sat by Pulse 99 100 99 Oximetry 04/30/21 04/30/21 04/30/21 02:31 03:00 03:30 Temperature Pulse Rate 99 H 97 H Pulse Rate [ 99 H Bilateral] Pulse Rate [ From Monitor] Respiratory 24 25 H Rate Respiratory 22 Rate [Bilateral ] Blood Pressure 138/52 131/55 O2 Sat by Pulse 100 99 Oximetry 04/30/21 04/30/21 04/30/21 03:55 04:00 04:30 Temperature 100.2 F H Pulse Rate 102 H 95 H Pulse Rate [ Bilateral] Pulse Rate [ 96 H From Monitor] Respiratory 22 22 Rate Respiratory Rate [Bilateral ] Blood Pressure 137/40 125/49 O2 Sat by Pulse 99 98 Oximetry 04/30/21 04/30/21 04/30/21 04:39 05:00 05:30 Temperature Pulse Rate 97 H 101 H 96 H Pulse Rate [ Bilateral] Pulse Rate [ From Monitor] Respiratory 23 26 H Rate Respiratory Rate [Bilateral ] Blood Pressure 117/50 125/49 117/50 O2 Sat by Pulse 98 99 98 Oximetry 04/30/21 04/30/21 04/30/21 06:00 06:30 07:00 Temperature Pulse Rate 94 H 94 H 94 H Pulse Rate [ Bilateral] Pulse Rate [ From Monitor] Respiratory 22 21 22 Rate Respiratory Rate [Bilateral ] Blood Pressure 121/52 121/48 129/45 O2 Sat by Pulse 99 100 100 Oximetry 04/30/21 04/30/21 04/30/21 07:30 08:00 08:15 Temperature Pulse Rate 96 H 101 H 99 H Pulse Rate [ Bilateral] Pulse Rate [ From Monitor] Respiratory 23 21 Rate Respiratory Rate [Bilateral ] Blood Pressure 134/105 134/105 O2 Sat by Pulse 100 100 100 Oximetry 04/30/21 04/30/21 08:18 08:39 Temperature 100.2 F H Pulse Rate Pulse Rate [ 103 H Bilateral] Pulse Rate [ From Monitor] Respiratory Rate Respiratory 18 Rate [Bilateral ] Blood Pressure O2 Sat by Pulse Oximetry Constitutional: no acute distress, alert, other (elderly obese female with mildly increased respiratory effort at rest on MVS) Eyes: non-icteric (Patient obese and having mild respiratory distress at rest) ENT: oropharynx moist, other (ETT 24 cm RICARDO) Neck: supple, no lymphadenopathy, no JVD, other (large circumference) Effort: mildly labored Ascultation: Bilateral: clear, diminished breath sounds, rhonchi, other (mild stridorous sounds) Percussion: Bilateral: not dull Cardiovascular: regular rate and rhythm, other (S1,S2) Gastrointestinal: normoactive bowel sounds, hypoactive bowel sounds, non-tender, non-distended (protuberant), other (firm) Integumentary: normal Extremities: no cyanosis, no edema, pulses normal, no ischemia or petechiae Neurologic: non-focal exam (tracks voice), pupils equal and round Psychiatric: mood appropriate CBC and BMP: 05/04/21 04:57 05/04/21 04:57 ABG, PT/INR, D-dimer: ABG ABG pH 7.547 (7.320-7.450) H 04/30/21 03:58 POC ABG pCO2 31.3 mmHg (32.0-48.0) L 04/30/21 03:58 POC ABG pO2 58.4 mmHg (83-108) L 04/30/21 03:58 POC ABG HCO3 26.6 04/30/21 03:58 ABG O2 Saturation 91.6 (0-100) 04/30/21 03:58 PT/INR, D-dimer PT 12.2 Sec. (12.2-14.9) 04/15/21 17:20 INR 0.91 (0.87-1.13) 04/15/21 17:20 Abnormal lab findings: Abnormal Labs 04/15/21 04/15/21 04/15/21 17:00 17:20 17:20 WBC 11.2 H RBC Hgb Hct 43.0 H MCV RDW 15.3 H Plt Count Lymph % (Auto) 12.8 L Seg Neutrophils % 82.4 H Seg Neuts % (Manual) Lymphocytes % (Manual) Monocytes % (Manual) Seg Neutrophils # 9.3 H Seg Neutrophils # Man Lymphocytes # (Manual) Monocytes # (Manual) ABG pH POC ABG pCO2 POC ABG pO2 ABG Hemoglobin ABG Oxyhemoglobin ABG Sodium ABG Potassium ABG Chloride ABG Glucose Carboxyhemoglobin Sodium 129 L Potassium 7.1 H* Chloride 91.9 L BUN 35 H Creatinine 2.8 H Glucose POC Glucose 191 H Calcium Phosphorus Magnesium AST 69 H ALT Total Creatine Kinase CK-MB (CK-2) Troponin T Total Protein Albumin HDL Cholesterol TSH Free T3 Index Arterial Blood Glucose Arterial Blood Ionized Calcium Urine pH Urine WBC (Auto) Urine Creatinine Acetaminophen 04/15/21 04/15/21 04/15/21 17:20 17:20 17:20 WBC RBC Hgb Hct MCV RDW Plt Count Lymph % (Auto) Seg Neutrophils % Seg Neuts % (Manual) Lymphocytes % (Manual) Monocytes % (Manual) Seg Neutrophils # Seg Neutrophils # Man Lymphocytes # (Manual) Monocytes # (Manual) ABG pH POC ABG pCO2 POC ABG pO2 ABG Hemoglobin ABG Oxyhemoglobin ABG Sodium ABG Potassium ABG Chloride ABG Glucose Carboxyhemoglobin Sodium Potassium Chloride BUN Creatinine Glucose POC Glucose Calcium Phosphorus Magnesium AST ALT Total Creatine Kinase 1000 H CK-MB (CK-2) Troponin T Total Protein Albumin HDL Cholesterol TSH 14.190 H Free T3 Index Arterial Blood Glucose Arterial Blood Ionized Calcium Urine pH Urine WBC (Auto) Urine Creatinine Acetaminophen 5.0 L 04/15/21 04/15/21 04/15/21 20:49 21:23 23:15 WBC RBC Hgb Hct MCV RDW Plt Count Lymph % (Auto) Seg Neutrophils % Seg Neuts % (Manual) Lymphocytes % (Manual) Monocytes % (Manual) Seg Neutrophils # Seg Neutrophils # Man Lymphocytes # (Manual) Monocytes # (Manual) ABG pH 7.557 H POC ABG pCO2 30.0 L POC ABG pO2 493.3 H ABG Hemoglobin ABG Oxyhemoglobin 99.0 H ABG Sodium 131.5 L ABG Potassium 4.7 H ABG Chloride 94.0 L ABG Glucose 218 H Carboxyhemoglobin Sodium Potassium Chloride BUN Creatinine Glucose POC Glucose 173 H 207 H Calcium Phosphorus Magnesium AST ALT Total Creatine Kinase CK-MB (CK-2) Troponin T Total Protein Albumin HDL Cholesterol TSH Free T3 Index Arterial Blood Glucose 218 H Arterial Blood Ionized Calcium 5.4 H Urine pH Urine WBC (Auto) Urine Creatinine Acetaminophen 04/16/21 04/16/21 04/16/21 00:09 00:12 00:19 WBC RBC Hgb Hct MCV RDW Plt Count Lymph % (Auto) Seg Neutrophils % Seg Neuts % (Manual) Lymphocytes % (Manual) Monocytes % (Manual) Seg Neutrophils # Seg Neutrophils # Man Lymphocytes # (Manual) Monocytes # (Manual) ABG pH POC ABG pCO2 POC ABG pO2 ABG Hemoglobin ABG Oxyhemoglobin ABG Sodium ABG Potassium ABG Chloride ABG Glucose Carboxyhemoglobin Sodium Potassium 6.7 H* Chloride BUN Creatinine Glucose POC Glucose Calcium Phosphorus Magnesium AST ALT Total Creatine Kinase CK-MB (CK-2) Troponin T Total Protein Albumin HDL Cholesterol TSH Free T3 Index Arterial Blood Glucose Arterial Blood Ionized Calcium Urine pH 9.0 H Urine WBC (Auto) Urine Creatinine 24.4 H Acetaminophen 05/04/16/21 04/16/21 03:43 03:55 05:02 WBC 21.2 H RBC Hgb Hct 43.4 H MCV 98 H RDW Plt Count Lymph % (Auto) Seg Neutrophils % Seg Neuts % (Manual) 84.0 H Lymphocytes % (Manual) 2.0 L Monocytes % (Manual) 10.0 H Seg Neutrophils # Seg Neutrophils # Man 17.8 H Lymphocytes # (Manual) 0.4 L Monocytes # (Manual) 2.1 H ABG pH 7.461 H POC ABG pCO2 POC ABG pO2 ABG Hemoglobin ABG Oxyhemoglobin ABG Sodium 126.8 L ABG Potassium 5.4 H ABG Chloride 90.0 L ABG Glucose 325 H Carboxyhemoglobin Sodium Potassium Chloride BUN Creatinine Glucose POC Glucose 391 H Calcium Phosphorus Magnesium AST ALT Total Creatine Kinase CK-MB (CK-2) Troponin T Total Protein Albumin HDL Cholesterol TSH Free T3 Index Arterial Blood Glucose 325 H Arterial Blood Ionized Calcium Urine pH Urine WBC (Auto) Urine Creatinine Acetaminophen 04/16/21 04/16/21 04/16/21 05:02 11:34 16:09 WBC RBC Hgb Hct MCV RDW Plt Count Lymph % (Auto) Seg Neutrophils % Seg Neuts % (Manual) Lymphocytes % (Manual) Monocytes % (Manual) Seg Neutrophils # Seg Neutrophils # Man Lymphocytes # (Manual) Monocytes # (Manual) ABG pH POC ABG pCO2 POC ABG pO2 ABG Hemoglobin ABG Oxyhemoglobin ABG Sodium ABG Potassium ABG Chloride ABG Glucose Carboxyhemoglobin Sodium 131 L Potassium 5.9 H Chloride 88.7 L BUN 34 H Creatinine 2.9 H Glucose 249 H POC Glucose 382 H 300 H Calcium 10.4 H Phosphorus Magnesium AST 65 H ALT Total Creatine Kinase CK-MB (CK-2) Troponin T Total Protein Albumin 3.8 L HDL Cholesterol TSH Free T3 Index Arterial Blood Glucose Arterial Blood Ionized Calcium Urine pH Urine WBC (Auto) Urine Creatinine Acetaminophen 04/16/21 04/16/21 04/16/21 18:15 19:01 19:01 WBC RBC Hgb Hct MCV RDW Plt Count Lymph % (Auto) Seg Neutrophils % Seg Neuts % (Manual) Lymphocytes % (Manual) Monocytes % (Manual) Seg Neutrophils # Seg Neutrophils # Man Lymphocytes # (Manual) Monocytes # (Manual) ABG pH POC ABG pCO2 POC ABG pO2 ABG Hemoglobin ABG Oxyhemoglobin ABG Sodium ABG Potassium ABG Chloride ABG Glucose Carboxyhemoglobin Sodium 125 L Potassium 5.5 H Chloride 84.5 L BUN 37 H Creatinine 3.5 H Glucose 236 H POC Glucose 287 H Calcium Phosphorus Magnesium AST ALT Total Creatine Kinase CK-MB (CK-2) Troponin T Total Protein Albumin HDL Cholesterol TSH Free T3 Index 1.1 L Arterial Blood Glucose Arterial Blood Ionized Calcium Urine pH Urine WBC (Auto) Urine Creatinine Acetaminophen 04/16/21 04/16/21 04/17/21 19:01 23:48 03:09 WBC RBC Hgb Hct MCV RDW Plt Count Lymph % (Auto) Seg Neutrophils % Seg Neuts % (Manual) Lymphocytes % (Manual) Monocytes % (Manual) Seg Neutrophils # Seg Neutrophils # Man Lymphocytes # (Manual) Monocytes # (Manual) ABG pH 7.518 H POC ABG pCO2 POC ABG pO2 ABG Hemoglobin ABG Oxyhemoglobin ABG Sodium 126.4 L ABG Potassium ABG Chloride 89.0 L ABG Glucose 200 H Carboxyhemoglobin Sodium Potassium 5.6 H Chloride BUN Creatinine Glucose POC Glucose 243 H Calcium Phosphorus Magnesium AST ALT Total Creatine Kinase CK-MB (CK-2) Troponin T Total Protein Albumin HDL Cholesterol TSH Free T3 Index Arterial Blood Glucose 200 H Arterial Blood Ionized Calcium 4.4 L Urine pH Urine WBC (Auto) Urine Creatinine Acetaminophen 04/17/21 04/17/21 04/17/21 05:04 06:14 11:55 WBC RBC Hgb Hct MCV RDW Plt Count Lymph % (Auto) Seg Neutrophils % Seg Neuts % (Manual) Lymphocytes % (Manual) Monocytes % (Manual) Seg Neutrophils # Seg Neutrophils # Man Lymphocytes # (Manual) Monocytes # (Manual) ABG pH POC ABG pCO2 POC ABG pO2 ABG Hemoglobin ABG Oxyhemoglobin ABG Sodium ABG Potassium ABG Chloride ABG Glucose Carboxyhemoglobin Sodium 129 L Potassium Chloride 86.1 L BUN 39 H Creatinine 3.5 H Glucose 202 H POC Glucose 208 H 276 H Calcium Phosphorus Magnesium AST ALT Total Creatine Kinase 750 H CK-MB (CK-2) Troponin T 0.119 H* D Total Protein Albumin HDL Cholesterol 61 H TSH Free T3 Index Arterial Blood Glucose Arterial Blood Ionized Calcium Urine pH Urine WBC (Auto) Urine Creatinine Acetaminophen 04/17/21 04/17/21 04/17/21 15:35 15:35 17:07 WBC 17.1 H RBC Hgb Hct MCV RDW Plt Count Lymph % (Auto) Seg Neutrophils % Seg Neuts % (Manual) Lymphocytes % (Manual) Monocytes % (Manual) Seg Neutrophils # Seg Neutrophils # Man Lymphocytes # (Manual) Monocytes # (Manual) ABG pH POC ABG pCO2 POC ABG pO2 ABG Hemoglobin ABG Oxyhemoglobin ABG Sodium ABG Potassium ABG Chloride ABG Glucose Carboxyhemoglobin Sodium Potassium Chloride BUN Creatinine Glucose POC Glucose 148 H Calcium Phosphorus Magnesium AST ALT Total Creatine Kinase 615 H CK-MB (CK-2) 9.1 H Troponin T Total Protein Albumin HDL Cholesterol TSH Free T3 Index Arterial Blood Glucose Arterial Blood Ionized Calcium Urine pH Urine WBC (Auto) Urine Creatinine Acetaminophen 04/18/21 04/18/21 04/18/21 00:01 03:00 05:24 WBC RBC Hgb Hct MCV RDW Plt Count Lymph % (Auto) Seg Neutrophils % Seg Neuts % (Manual) Lymphocytes % (Manual) Monocytes % (Manual) Seg Neutrophils # Seg Neutrophils # Man Lymphocytes # (Manual) Monocytes # (Manual) ABG pH 7.497 H POC ABG pCO2 POC ABG pO2 77.7 L ABG Hemoglobin 10.4 L ABG Oxyhemoglobin ABG Sodium 129.7 L ABG Potassium 2.8 L ABG Chloride 92.0 L ABG Glucose 134 H Carboxyhemoglobin 0.3 L Sodium Potassium Chloride BUN Creatinine Glucose POC Glucose 192 H 162 H Calcium Phosphorus Magnesium AST ALT Total Creatine Kinase CK-MB (CK-2) Troponin T Total Protein Albumin HDL Cholesterol TSH Free T3 Index Arterial Blood Glucose 134 H Arterial Blood Ionized Calcium 4.3 L Urine pH Urine WBC (Auto) Urine Creatinine Acetaminophen 04/18/21 04/18/21 04/18/21 05:34 05:34 05:43 WBC 15.3 H RBC 3.34 L Hgb Hct MCV RDW 15.3 H Plt Count Lymph % (Auto) Seg Neutrophils % Seg Neuts % (Manual) Lymphocytes % (Manual) Monocytes % (Manual) Seg Neutrophils # Seg Neutrophils # Man Lymphocytes # (Manual) Monocytes # (Manual) ABG pH POC ABG pCO2 POC ABG pO2 ABG Hemoglobin ABG Oxyhemoglobin ABG Sodium ABG Potassium ABG Chloride ABG Glucose Carboxyhemoglobin Sodium 134 L Potassium 3.0 L D Chloride 93.5 L BUN 42 H Creatinine 3.1 H Glucose 152 H POC Glucose Calcium Phosphorus Magnesium 1.40 L AST ALT Total Creatine Kinase 427 H CK-MB (CK-2) Troponin T 0.081 H D Total Protein Albumin HDL Cholesterol TSH Free T3 Index Arterial Blood Glucose Arterial Blood Ionized Calcium Urine pH Urine WBC (Auto) Urine Creatinine Acetaminophen 04/18/21 04/18/21 04/18/21 09:11 11:34 17:24 WBC RBC Hgb Hct MCV RDW Plt Count Lymph % (Auto) Seg Neutrophils % Seg Neuts % (Manual) Lymphocytes % (Manual) Monocytes % (Manual) Seg Neutrophils # Seg Neutrophils # Man Lymphocytes # (Manual) Monocytes # (Manual) ABG pH POC ABG pCO2 POC ABG pO2 ABG Hemoglobin ABG Oxyhemoglobin ABG Sodium ABG Potassium ABG Chloride ABG Glucose Carboxyhemoglobin Sodium Potassium Chloride BUN Creatinine Glucose POC Glucose 170 H 151 H Calcium Phosphorus Magnesium AST ALT Total Creatine Kinase CK-MB (CK-2) Troponin T Total Protein Albumin HDL Cholesterol TSH Free T3 Index Arterial Blood Glucose Arterial Blood Ionized Calcium Urine pH Urine WBC (Auto) 34.0 H Urine Creatinine Acetaminophen 04/18/21 04/19/21 04/19/21 23:18 04:09 05:19 WBC RBC Hgb Hct MCV RDW Plt Count Lymph % (Auto) Seg Neutrophils % Seg Neuts % (Manual) Lymphocytes % (Manual) Monocytes % (Manual) Seg Neutrophils # Seg Neutrophils # Man Lymphocytes # (Manual) Monocytes # (Manual) ABG pH 7.476 H POC ABG pCO2 POC ABG pO2 79.4 L ABG Hemoglobin 10.7 L ABG Oxyhemoglobin ABG Sodium 131.2 L ABG Potassium 2.8 L ABG Chloride 94.0 L ABG Glucose 209 H Carboxyhemoglobin 0.3 L Sodium Potassium Chloride BUN Creatinine Glucose POC Glucose 182 H 204 H Calcium Phosphorus Magnesium AST ALT Total Creatine Kinase CK-MB (CK-2) Troponin T Total Protein Albumin HDL Cholesterol TSH Free T3 Index Arterial Blood Glucose 209 H Arterial Blood Ionized Calcium Urine pH Urine WBC (Auto) Urine Creatinine Acetaminophen 04/19/21 04/19/21 04/19/21 07:30 07:30 10:35 WBC 14.8 H RBC 3.20 L Hgb Hct MCV 98 H RDW Plt Count 137 L Lymph % (Auto) Seg Neutrophils % Seg Neuts % (Manual) Lymphocytes % (Manual) Monocytes % (Manual) Seg Neutrophils # Seg Neutrophils # Man Lymphocytes # (Manual) Monocytes # (Manual) ABG pH 7.464 H POC ABG pCO2 POC ABG pO2 81.8 L ABG Hemoglobin 10.8 L ABG Oxyhemoglobin ABG Sodium 129.6 L ABG Potassium ABG Chloride 95.0 L ABG Glucose 238 H Carboxyhemoglobin Sodium 133 L Potassium 2.8 L* Chloride 94.4 L BUN 43 H Creatinine 2.7 H Glucose 255 H POC Glucose Calcium 8.0 L Phosphorus Magnesium AST ALT Total Creatine Kinase CK-MB (CK-2) Troponin T 0.060 H D Total Protein Albumin HDL Cholesterol TSH Free T3 Index Arterial Blood Glucose 238 H Arterial Blood Ionized Calcium Urine pH Urine WBC (Auto) Urine Creatinine Acetaminophen 04/19/21 04/19/21 04/19/21 11:48 20:40 23:04 WBC RBC Hgb Hct MCV RDW Plt Count Lymph % (Auto) Seg Neutrophils % Seg Neuts % (Manual) Lymphocytes % (Manual) Monocytes % (Manual) Seg Neutrophils # Seg Neutrophils # Man Lymphocytes # (Manual) Monocytes # (Manual) ABG pH POC ABG pCO2 POC ABG pO2 ABG Hemoglobin ABG Oxyhemoglobin ABG Sodium ABG Potassium ABG Chloride ABG Glucose Carboxyhemoglobin Sodium Potassium 3.4 L D Chloride BUN Creatinine Glucose POC Glucose 208 H 173 H Calcium Phosphorus Magnesium AST ALT Total Creatine Kinase CK-MB (CK-2) Troponin T Total Protein Albumin HDL Cholesterol TSH Free T3 Index Arterial Blood Glucose Arterial Blood Ionized Calcium Urine pH Urine WBC (Auto) Urine Creatinine Acetaminophen 04/20/21 04/20/21 04/20/21 02:56 03:32 03:32 WBC 13.2 H RBC 3.18 L Hgb Hct MCV RDW Plt Count Lymph % (Auto) Seg Neutrophils % Seg Neuts % (Manual) Lymphocytes % (Manual) Monocytes % (Manual) Seg Neutrophils # Seg Neutrophils # Man Lymphocytes # (Manual) Monocytes # (Manual) ABG pH 7.526 H POC ABG pCO2 POC ABG pO2 ABG Hemoglobin 10.5 L ABG Oxyhemoglobin ABG Sodium 133.5 L ABG Potassium ABG Chloride ABG Glucose 157 H Carboxyhemoglobin 0.3 L Sodium 135 L Potassium Chloride 96.7 L BUN 40 H Creatinine 2.3 H Glucose 142 H POC Glucose Calcium Phosphorus Magnesium AST ALT Total Creatine Kinase CK-MB (CK-2) Troponin T 0.065 H Total Protein Albumin HDL Cholesterol TSH Free T3 Index Arterial Blood Glucose 157 H Arterial Blood Ionized Calcium Urine pH Urine WBC (Auto) Urine Creatinine Acetaminophen 04/20/21 04/20/21 04/20/21 03:46 05:42 11:50 WBC RBC Hgb Hct MCV RDW Plt Count Lymph % (Auto) Seg Neutrophils % Seg Neuts % (Manual) Lymphocytes % (Manual) Monocytes % (Manual) Seg Neutrophils # Seg Neutrophils # Man Lymphocytes # (Manual) Monocytes # (Manual) ABG pH POC ABG pCO2 POC ABG pO2 ABG Hemoglobin ABG Oxyhemoglobin ABG Sodium ABG Potassium ABG Chloride ABG Glucose Carboxyhemoglobin Sodium Potassium Chloride BUN Creatinine Glucose POC Glucose 160 H 194 H Calcium Phosphorus 2.10 L Magnesium AST ALT Total Creatine Kinase CK-MB (CK-2) Troponin T Total Protein Albumin HDL Cholesterol TSH Free T3 Index Arterial Blood Glucose Arterial Blood Ionized Calcium Urine pH Urine WBC (Auto) Urine Creatinine Acetaminophen 04/20/21 04/20/21 04/21/21 17:09 23:18 05:26 WBC RBC Hgb Hct MCV RDW Plt Count Lymph % (Auto) Seg Neutrophils % Seg Neuts % (Manual) Lymphocytes % (Manual) Monocytes % (Manual) Seg Neutrophils # Seg Neutrophils # Man Lymphocytes # (Manual) Monocytes # (Manual) ABG pH POC ABG pCO2 POC ABG pO2 ABG Hemoglobin ABG Oxyhemoglobin ABG Sodium ABG Potassium ABG Chloride ABG Glucose Carboxyhemoglobin Sodium Potassium Chloride BUN Creatinine Glucose POC Glucose 153 H 162 H 164 H Calcium Phosphorus Magnesium AST ALT Total Creatine Kinase CK-MB (CK-2) Troponin T Total Protein Albumin HDL Cholesterol TSH Free T3 Index Arterial Blood Glucose Arterial Blood Ionized Calcium Urine pH Urine WBC (Auto) Urine Creatinine Acetaminophen 04/21/21 04/21/21 04/21/21 05:51 05:51 12:12 WBC RBC 3.20 L Hgb Hct MCV 99 H RDW 15.3 H Plt Count Lymph % (Auto) Seg Neutrophils % Seg Neuts % (Manual) Lymphocytes % (Manual) Monocytes % (Manual) Seg Neutrophils # Seg Neutrophils # Man Lymphocytes # (Manual) Monocytes # (Manual) ABG pH POC ABG pCO2 POC ABG pO2 ABG Hemoglobin ABG Oxyhemoglobin ABG Sodium ABG Potassium ABG Chloride ABG Glucose Carboxyhemoglobin Sodium Potassium Chloride 96.6 L BUN 42 H Creatinine 2.1 H Glucose 171 H POC Glucose 167 H Calcium Phosphorus Magnesium AST ALT Total Creatine Kinase CK-MB (CK-2) Troponin T Total Protein Albumin HDL Cholesterol TSH Free T3 Index Arterial Blood Glucose Arterial Blood Ionized Calcium Urine pH Urine WBC (Auto) Urine Creatinine Acetaminophen 04/21/21 04/21/21 04/22/21 17:13 23:42 05:29 WBC RBC Hgb Hct MCV RDW Plt Count Lymph % (Auto) Seg Neutrophils % Seg Neuts % (Manual) Lymphocytes % (Manual) Monocytes % (Manual) Seg Neutrophils # Seg Neutrophils # Man Lymphocytes # (Manual) Monocytes # (Manual) ABG pH POC ABG pCO2 POC ABG pO2 ABG Hemoglobin ABG Oxyhemoglobin ABG Sodium ABG Potassium ABG Chloride ABG Glucose Carboxyhemoglobin Sodium Potassium Chloride BUN Creatinine Glucose POC Glucose 178 H 253 H 208 H Calcium Phosphorus Magnesium AST ALT Total Creatine Kinase CK-MB (CK-2) Troponin T Total Protein Albumin HDL Cholesterol TSH Free T3 Index Arterial Blood Glucose Arterial Blood Ionized Calcium Urine pH Urine WBC (Auto) Urine Creatinine Acetaminophen 04/22/21 04/22/21 04/22/21 08:00 08:00 12:06 WBC 12.9 H RBC Hgb Hct MCV RDW Plt Count Lymph % (Auto) Seg Neutrophils % Seg Neuts % (Manual) Lymphocytes % (Manual) Monocytes % (Manual) Seg Neutrophils # Seg Neutrophils # Man Lymphocytes # (Manual) Monocytes # (Manual) ABG pH POC ABG pCO2 POC ABG pO2 ABG Hemoglobin ABG Oxyhemoglobin ABG Sodium ABG Potassium ABG Chloride ABG Glucose Carboxyhemoglobin Sodium Potassium Chloride BUN 47 H Creatinine 1.9 H Glucose 252 H POC Glucose 298 H Calcium Phosphorus Magnesium AST ALT Total Creatine Kinase CK-MB (CK-2) Troponin T Total Protein Albumin HDL Cholesterol TSH Free T3 Index Arterial Blood Glucose Arterial Blood Ionized Calcium Urine pH Urine WBC (Auto) Urine Creatinine Acetaminophen 04/22/21 04/22/21 04/23/21 17:34 23:01 05:08 WBC RBC Hgb Hct MCV RDW Plt Count Lymph % (Auto) Seg Neutrophils % Seg Neuts % (Manual) Lymphocytes % (Manual) Monocytes % (Manual) Seg Neutrophils # Seg Neutrophils # Man Lymphocytes # (Manual) Monocytes # (Manual) ABG pH POC ABG pCO2 POC ABG pO2 ABG Hemoglobin ABG Oxyhemoglobin ABG Sodium ABG Potassium ABG Chloride ABG Glucose Carboxyhemoglobin Sodium Potassium Chloride BUN Creatinine Glucose POC Glucose 259 H 280 H 223 H Calcium Phosphorus Magnesium AST ALT Total Creatine Kinase CK-MB (CK-2) Troponin T Total Protein Albumin HDL Cholesterol TSH Free T3 Index Arterial Blood Glucose Arterial Blood Ionized Calcium Urine pH Urine WBC (Auto) Urine Creatinine Acetaminophen 04/23/21 04/23/21 04/23/21 07:02 11:57 17:33 WBC RBC Hgb Hct MCV RDW Plt Count Lymph % (Auto) Seg Neutrophils % Seg Neuts % (Manual) Lymphocytes % (Manual) Monocytes % (Manual) Seg Neutrophils # Seg Neutrophils # Man Lymphocytes # (Manual) Monocytes # (Manual) ABG pH POC ABG pCO2 POC ABG pO2 ABG Hemoglobin ABG Oxyhemoglobin ABG Sodium ABG Potassium ABG Chloride ABG Glucose Carboxyhemoglobin Sodium Potassium Chloride 97.7 L BUN 57 H Creatinine 2.0 H Glucose 253 H POC Glucose 310 H 235 H Calcium Phosphorus Magnesium AST ALT Total Creatine Kinase CK-MB (CK-2) Troponin T Total Protein Albumin HDL Cholesterol TSH Free T3 Index Arterial Blood Glucose Arterial Blood Ionized Calcium Urine pH Urine WBC (Auto) Urine Creatinine Acetaminophen 04/23/21 04/24/21 04/24/21 23:15 05:23 05:46 WBC RBC Hgb Hct MCV RDW Plt Count Lymph % (Auto) Seg Neutrophils % Seg Neuts % (Manual) Lymphocytes % (Manual) Monocytes % (Manual) Seg Neutrophils # Seg Neutrophils # Man Lymphocytes # (Manual) Monocytes # (Manual) ABG pH POC ABG pCO2 POC ABG pO2 ABG Hemoglobin ABG Oxyhemoglobin ABG Sodium ABG Potassium ABG Chloride ABG Glucose Carboxyhemoglobin Sodium Potassium 5.2 H D Chloride BUN 68 H Creatinine 2.3 H Glucose 277 H POC Glucose 197 H 274 H Calcium Phosphorus Magnesium AST ALT Total Creatine Kinase CK-MB (CK-2) Troponin T Total Protein Albumin HDL Cholesterol TSH Free T3 Index Arterial Blood Glucose Arterial Blood Ionized Calcium Urine pH Urine WBC (Auto) Urine Creatinine Acetaminophen 04/24/21 04/24/21 04/24/21 11:33 11:52 17:49 WBC RBC Hgb Hct MCV RDW Plt Count Lymph % (Auto) Seg Neutrophils % Seg Neuts % (Manual) Lymphocytes % (Manual) Monocytes % (Manual) Seg Neutrophils # Seg Neutrophils # Man Lymphocytes # (Manual) Monocytes # (Manual) ABG pH POC ABG pCO2 POC ABG pO2 72.7 L ABG Hemoglobin 11.6 L ABG Oxyhemoglobin 92.9 L ABG Sodium ABG Potassium ABG Chloride ABG Glucose 269 H Carboxyhemoglobin Sodium Potassium Chloride BUN Creatinine Glucose POC Glucose 223 H 252 H Calcium Phosphorus Magnesium AST ALT Total Creatine Kinase CK-MB (CK-2) Troponin T Total Protein Albumin HDL Cholesterol TSH Free T3 Index Arterial Blood Glucose 269 H Arterial Blood Ionized Calcium Urine pH Urine WBC (Auto) Urine Creatinine Acetaminophen 04/24/21 04/24/21 04/25/21 21:00 23:48 03:06 WBC RBC Hgb Hct MCV RDW Plt Count Lymph % (Auto) Seg Neutrophils % Seg Neuts % (Manual) Lymphocytes % (Manual) Monocytes % (Manual) Seg Neutrophils # Seg Neutrophils # Man Lymphocytes # (Manual) Monocytes # (Manual) ABG pH 7.521 H 7.451 H POC ABG pCO2 POC ABG pO2 80.7 L 77.1 L ABG Hemoglobin 10.4 L 11.2 L ABG Oxyhemoglobin ABG Sodium ABG Potassium ABG Chloride ABG Glucose 186 H 165 H Carboxyhemoglobin 0 L Sodium Potassium Chloride BUN Creatinine Glucose POC Glucose 141 H Calcium Phosphorus Magnesium AST ALT Total Creatine Kinase CK-MB (CK-2) Troponin T Total Protein Albumin HDL Cholesterol TSH Free T3 Index Arterial Blood Glucose 186 H 165 H Arterial Blood Ionized Calcium Urine pH Urine WBC (Auto) Urine Creatinine Acetaminophen 04/25/21 04/25/21 04/25/21 03:56 03:56 06:03 WBC 12.3 H RBC 3.40 L Hgb Hct MCV RDW Plt Count Lymph % (Auto) Seg Neutrophils % Seg Neuts % (Manual) Lymphocytes % (Manual) Monocytes % (Manual) Seg Neutrophils # Seg Neutrophils # Man Lymphocytes # (Manual) Monocytes # (Manual) ABG pH POC ABG pCO2 POC ABG pO2 ABG Hemoglobin ABG Oxyhemoglobin ABG Sodium ABG Potassium ABG Chloride ABG Glucose Carboxyhemoglobin Sodium Potassium Chloride BUN 78 H Creatinine 2.5 H Glucose 152 H POC Glucose 171 H Calcium Phosphorus Magnesium AST ALT Total Creatine Kinase CK-MB (CK-2) Troponin T Total Protein Albumin HDL Cholesterol TSH Free T3 Index Arterial Blood Glucose Arterial Blood Ionized Calcium Urine pH Urine WBC (Auto) Urine Creatinine Acetaminophen 04/25/21 04/25/21 04/26/21 11:43 15:37 00:05 WBC RBC Hgb Hct MCV RDW Plt Count Lymph % (Auto) Seg Neutrophils % Seg Neuts % (Manual) Lymphocytes % (Manual) Monocytes % (Manual) Seg Neutrophils # Seg Neutrophils # Man Lymphocytes # (Manual) Monocytes # (Manual) ABG pH POC ABG pCO2 POC ABG pO2 ABG Hemoglobin ABG Oxyhemoglobin ABG Sodium ABG Potassium ABG Chloride ABG Glucose Carboxyhemoglobin Sodium Potassium Chloride BUN Creatinine Glucose POC Glucose 181 H 167 H 144 H Calcium Phosphorus Magnesium AST ALT Total Creatine Kinase CK-MB (CK-2) Troponin T Total Protein Albumin HDL Cholesterol TSH Free T3 Index Arterial Blood Glucose Arterial Blood Ionized Calcium Urine pH Urine WBC (Auto) Urine Creatinine Acetaminophen 04/26/21 04/26/21 04/26/21 04:30 05:44 09:30 WBC RBC Hgb Hct MCV RDW Plt Count Lymph % (Auto) Seg Neutrophils % Seg Neuts % (Manual) Lymphocytes % (Manual) Monocytes % (Manual) Seg Neutrophils # Seg Neutrophils # Man Lymphocytes # (Manual) Monocytes # (Manual) ABG pH 7.529 H POC ABG pCO2 POC ABG pO2 66.1 L ABG Hemoglobin 11.2 L ABG Oxyhemoglobin 92.8 L ABG Sodium ABG Potassium ABG Chloride ABG Glucose 216 H Carboxyhemoglobin 0.3 L Sodium Potassium Chloride BUN 82 H Creatinine 2.7 H Glucose 238 H POC Glucose 202 H Calcium Phosphorus Magnesium AST ALT Total Creatine Kinase CK-MB (CK-2) Troponin T Total Protein Albumin HDL Cholesterol TSH Free T3 Index Arterial Blood Glucose 216 H Arterial Blood Ionized Calcium Urine pH Urine WBC (Auto) Urine Creatinine Acetaminophen 04/26/21 04/26/21 04/26/21 09:30 11:32 17:21 WBC 24.7 H RBC 3.32 L Hgb Hct MCV RDW Plt Count Lymph % (Auto) Seg Neutrophils % Seg Neuts % (Manual) Lymphocytes % (Manual) Monocytes % (Manual) Seg Neutrophils # Seg Neutrophils # Man Lymphocytes # (Manual) Monocytes # (Manual) ABG pH POC ABG pCO2 POC ABG pO2 ABG Hemoglobin ABG Oxyhemoglobin ABG Sodium ABG Potassium ABG Chloride ABG Glucose Carboxyhemoglobin Sodium Potassium Chloride BUN Creatinine Glucose POC Glucose 245 H 264 H Calcium Phosphorus Magnesium AST ALT Total Creatine Kinase CK-MB (CK-2) Troponin T Total Protein Albumin HDL Cholesterol TSH Free T3 Index Arterial Blood Glucose Arterial Blood Ionized Calcium Urine pH Urine WBC (Auto) Urine Creatinine Acetaminophen 04/26/21 04/27/21 04/27/21 23:18 04:23 04:54 WBC RBC Hgb Hct MCV RDW Plt Count Lymph % (Auto) Seg Neutrophils % Seg Neuts % (Manual) Lymphocytes % (Manual) Monocytes % (Manual) Seg Neutrophils # Seg Neutrophils # Man Lymphocytes # (Manual) Monocytes # (Manual) ABG pH 7.549 H POC ABG pCO2 30.0 L POC ABG pO2 64.9 L ABG Hemoglobin 11 L ABG Oxyhemoglobin 93.3 L ABG Sodium ABG Potassium ABG Chloride ABG Glucose 325 H Carboxyhemoglobin 0.3 L Sodium Potassium Chloride BUN Creatinine Glucose POC Glucose 201 H 298 H Calcium Phosphorus Magnesium AST ALT Total Creatine Kinase CK-MB (CK-2) Troponin T Total Protein Albumin HDL Cholesterol TSH Free T3 Index Arterial Blood Glucose 325 H Arterial Blood Ionized Calcium Urine pH Urine WBC (Auto) Urine Creatinine Acetaminophen 04/27/21 04/27/21 04/27/21 07:52 07:52 11:22 WBC 23.0 H RBC 3.32 L Hgb Hct MCV RDW 15.5 H Plt Count Lymph % (Auto) Seg Neutrophils % Seg Neuts % (Manual) Lymphocytes % (Manual) Monocytes % (Manual) Seg Neutrophils # Seg Neutrophils # Man Lymphocytes # (Manual) Monocytes # (Manual) ABG pH POC ABG pCO2 POC ABG pO2 ABG Hemoglobin ABG Oxyhemoglobin ABG Sodium ABG Potassium ABG Chloride ABG Glucose Carboxyhemoglobin Sodium Potassium 3.5 L Chloride BUN 90 H Creatinine 2.8 H Glucose 286 H POC Glucose 251 H Calcium Phosphorus Magnesium AST ALT Total Creatine Kinase CK-MB (CK-2) Troponin T Total Protein Albumin HDL Cholesterol TSH Free T3 Index Arterial Blood Glucose Arterial Blood Ionized Calcium Urine pH Urine WBC (Auto) Urine Creatinine Acetaminophen 04/27/21 04/27/21 04/27/21 17:21 17:45 23:05 WBC RBC Hgb Hct MCV RDW Plt Count Lymph % (Auto) Seg Neutrophils % Seg Neuts % (Manual) Lymphocytes % (Manual) Monocytes % (Manual) Seg Neutrophils # Seg Neutrophils # Man Lymphocytes # (Manual) Monocytes # (Manual) ABG pH POC ABG pCO2 POC ABG pO2 ABG Hemoglobin ABG Oxyhemoglobin ABG Sodium ABG Potassium ABG Chloride ABG Glucose Carboxyhemoglobin Sodium Potassium Chloride BUN Creatinine Glucose POC Glucose 180 H 178 H 189 H Calcium Phosphorus Magnesium AST ALT Total Creatine Kinase CK-MB (CK-2) Troponin T Total Protein Albumin HDL Cholesterol TSH Free T3 Index Arterial Blood Glucose Arterial Blood Ionized Calcium Urine pH Urine WBC (Auto) Urine Creatinine Acetaminophen 04/28/21 04/28/21 04/28/21 03:14 04:13 04:13 WBC 17.6 H RBC 3.03 L Hgb 9.7 L Hct 29.5 L MCV RDW Plt Count Lymph % (Auto) Seg Neutrophils % Seg Neuts % (Manual) Lymphocytes % (Manual) Monocytes % (Manual) Seg Neutrophils # Seg Neutrophils # Man Lymphocytes # (Manual) Monocytes # (Manual) ABG pH 7.507 H POC ABG pCO2 POC ABG pO2 62.0 L ABG Hemoglobin 10.2 L ABG Oxyhemoglobin 91.9 L ABG Sodium ABG Potassium ABG Chloride ABG Glucose 337 H Carboxyhemoglobin 0.2 L Sodium Potassium Chloride BUN 101 H Creatinine 3.1 H Glucose 304 H POC Glucose Calcium Phosphorus Magnesium AST 61 H ALT 64 H Total Creatine Kinase CK-MB (CK-2) Troponin T Total Protein 6.2 L Albumin 2.6 L HDL Cholesterol TSH Free T3 Index Arterial Blood Glucose 337 H Arterial Blood Ionized Calcium Urine pH Urine WBC (Auto) Urine Creatinine Acetaminophen 04/28/21 04/28/21 04/28/21 05:01 11:28 18:23 WBC RBC Hgb Hct MCV RDW Plt Count Lymph % (Auto) Seg Neutrophils % Seg Neuts % (Manual) Lymphocytes % (Manual) Monocytes % (Manual) Seg Neutrophils # Seg Neutrophils # Man Lymphocytes # (Manual) Monocytes # (Manual) ABG pH POC ABG pCO2 POC ABG pO2 ABG Hemoglobin ABG Oxyhemoglobin ABG Sodium ABG Potassium ABG Chloride ABG Glucose Carboxyhemoglobin Sodium Potassium Chloride BUN Creatinine Glucose POC Glucose 282 H 263 H 200 H Calcium Phosphorus Magnesium AST ALT Total Creatine Kinase CK-MB (CK-2) Troponin T Total Protein Albumin HDL Cholesterol TSH Free T3 Index Arterial Blood Glucose Arterial Blood Ionized Calcium Urine pH Urine WBC (Auto) Urine Creatinine Acetaminophen 04/28/21 04/29/21 04/29/21 23:49 03:24 04:22 WBC RBC Hgb Hct MCV RDW Plt Count Lymph % (Auto) Seg Neutrophils % Seg Neuts % (Manual) Lymphocytes % (Manual) Monocytes % (Manual) Seg Neutrophils # Seg Neutrophils # Man Lymphocytes # (Manual) Monocytes # (Manual) ABG pH 7.546 H POC ABG pCO2 POC ABG pO2 52.4 L ABG Hemoglobin 10.5 L ABG Oxyhemoglobin 88.3 L ABG Sodium ABG Potassium ABG Chloride ABG Glucose 217 H Carboxyhemoglobin 0.4 L Sodium 148 H Potassium Chloride BUN 110 H Creatinine 3.1 H Glucose 208 H POC Glucose 238 H Calcium Phosphorus Magnesium AST ALT Total Creatine Kinase CK-MB (CK-2) Troponin T Total Protein Albumin HDL Cholesterol TSH Free T3 Index Arterial Blood Glucose 217 H Arterial Blood Ionized Calcium Urine pH Urine WBC (Auto) Urine Creatinine Acetaminophen 04/29/21 04/29/21 04/29/21 04:22 05:08 11:26 WBC 15.2 H RBC 3.30 L Hgb 9.8 L Hct MCV RDW Plt Count Lymph % (Auto) Seg Neutrophils % Seg Neuts % (Manual) Lymphocytes % (Manual) Monocytes % (Manual) Seg Neutrophils # Seg Neutrophils # Man Lymphocytes # (Manual) Monocytes # (Manual) ABG pH POC ABG pCO2 POC ABG pO2 ABG Hemoglobin ABG Oxyhemoglobin ABG Sodium ABG Potassium ABG Chloride ABG Glucose Carboxyhemoglobin Sodium Potassium Chloride BUN Creatinine Glucose POC Glucose 181 H 218 H Calcium Phosphorus Magnesium AST ALT Total Creatine Kinase CK-MB (CK-2) Troponin T Total Protein Albumin HDL Cholesterol TSH Free T3 Index Arterial Blood Glucose Arterial Blood Ionized Calcium Urine pH Urine WBC (Auto) Urine Creatinine Acetaminophen 04/29/21 04/29/21 04/30/21 17:06 23:06 03:58 WBC RBC Hgb Hct MCV RDW Plt Count Lymph % (Auto) Seg Neutrophils % Seg Neuts % (Manual) Lymphocytes % (Manual) Monocytes % (Manual) Seg Neutrophils # Seg Neutrophils # Man Lymphocytes # (Manual) Monocytes # (Manual) ABG pH 7.547 H POC ABG pCO2 31.3 L POC ABG pO2 58.4 L ABG Hemoglobin 9.6 L ABG Oxyhemoglobin 91.1 L ABG Sodium ABG Potassium ABG Chloride 108.0 H ABG Glucose 248 H Carboxyhemoglobin 0.2 L Sodium Potassium Chloride BUN Creatinine Glucose POC Glucose 223 H 252 H Calcium Phosphorus Magnesium AST ALT Total Creatine Kinase CK-MB (CK-2) Troponin T Total Protein Albumin HDL Cholesterol TSH Free T3 Index Arterial Blood Glucose 248 H Arterial Blood Ionized Calcium Urine pH Urine WBC (Auto) Urine Creatinine Acetaminophen 04/30/21 04/30/21 05:23 05:54 WBC RBC Hgb Hct MCV RDW Plt Count Lymph % (Auto) Seg Neutrophils % Seg Neuts % (Manual) Lymphocytes % (Manual) Monocytes % (Manual) Seg Neutrophils # Seg Neutrophils # Man Lymphocytes # (Manual) Monocytes # (Manual) ABG pH POC ABG pCO2 POC ABG pO2 ABG Hemoglobin ABG Oxyhemoglobin ABG Sodium ABG Potassium ABG Chloride ABG Glucose Carboxyhemoglobin Sodium Potassium Chloride BUN 118 H Creatinine 3.3 H Glucose 263 H POC Glucose 244 H Calcium Phosphorus Magnesium AST ALT Total Creatine Kinase CK-MB (CK-2) Troponin T Total Protein Albumin HDL Cholesterol TSH Free T3 Index Arterial Blood Glucose Arterial Blood Ionized Calcium Urine pH Urine WBC (Auto) Urine Creatinine Acetaminophen Allied health notes reviewed: RT
[2021-04-30] MEDS ORDERED: INSULIN GLARGINE 100 UNITS/ML SUB-Q SCH (10:00)
[2021-04-30] MEDS: DOCUSATE SODIUM 100 MG/10 ML ORAL LIQD PO SCH ×2 (10:27→21:42)
[2021-04-30] MEDS: CLOPIDOGREL 75 MG TAB PO SCH (10:27)
[2021-04-30] MEDS: TAMSULOSIN 0.4 MG CAP PO SCH (10:27)
[2021-04-30] MEDS: amLODIPine 10 MG TAB PO SCH (10:28)
[2021-04-30] MEDS: CEFEPIME/NS 2 GM/100 ML 2 GM/100 ML BAG IV SCH (10:28)
[2021-04-30] MEDS: FAMOTIDINE 20 MG TAB PO SCH (10:28)
[2021-04-30] MEDS: METOPROLOL TARTRATE 25 MG TAB PO SCH ×2 (10:28→21:43)
[2021-04-30] MEDS: ASPIRIN 81 MG TAB CHEW PO SCH (10:28)
[2021-04-30] MEDS: TIMOLOL 0.5% OPHTH SOLN 5 ML OU SCH (10:30)
[2021-04-30] MEDS: BRIMONIDINE 0.15% OPHTH SOLN OU SCH ×2 (10:30→21:45)
[2021-04-30] MEDS: HEPARIN 5,000 UNIT/1 ML VIAL SUB-Q SCH ×2 (10:31→21:43)
--- NOTE | 2021-04-30 11:07 | Progress Note ---
Assessment and Plan Cultures: 04/15/2021 blood culture: No growth 04/15/2021 sputum culture: Contaminated 04/16/2021 urine culture: Mixed nilesh 04/16/2021 tracheal aspirate culture: Usual respiratory nilesh 04/18/2021 urine culture: 10K-100 K Pseudomonas aeruginosa 04/18/2021 blood culture: No growth 04/24/2021 resp culture: usual resp nilesh 04/26/2021 blood culture: No growth COVID-19 PCR: Negative A/P: 80-year-old female with diabetes mellitus, coronary artery disease, hypertension, breast cancer status post mastectomy, TIA was admitted to the hospital on 04/16/2021 with altered mental status and hypoglycemia: #Sepsis: Etiology unclear. Prolonged mechanical ventilation and ICU stay. Ruled out bacteremia, UTI. Chest x-ray from today does not reveal any pneumonia. ? some leucocytosis related to steroid use from 04/21/2021 to 04/24/2021. #Acute respiratory failure: on the vent. #Acute encephalopathy: Metabolic likely. #UTI with Pseudomonas: Recently treated with IV cefepime. #ROJELIO: Renally dose antibiotics. Recs: -low grade fevers continue, recheck CBC in AM -continue IV Cefepime. Flagyl added to cover for anaerobes/sinusitis. No obvious source. No diarrhea as such so C.difficile is unlikely. -if CBC remains elevated with fevers, will consider imaging. Cash Parks MD, FACP [facility] O: [phone] F: [phone] Subjective Date of service: 04/30/21 Principal diagnosis: Ac. resp failure; AMS; Hypoglycemia; ROJELIO; Hyperkalemia; DM II Interval history: Remains on the vent. Intermittently febrile. Cannot provide history. No diarrh ea. Objective - Exam Narrative Exam: Physical Exam: Constitutional: sedated, intubated, on the vent Head, Ears, Nose: Normocephalic, atraumatic. External ears, nose normal Eyes: Conjunctivae/corneas clear. No icterus. No ptosis. Neck: intubated Oral: intubated Cardiovascular: S1, S2 + Respiratory: AE fair bilaterally and equal GI: Soft, bowel sounds + Musculoskeletal: No pedal edema, no cyanosis. Skin: No rash or abscess Hem/Lymphatic: No palpable cervical or supraclavicular nodes. No lymphangitis Psych: no agitation Neurological: sedated, intubated, on the vent, exam limited - Constitutional Vitals: Vital Signs Temp Pulse Resp BP Pulse Ox 100.2 F H 100 H 18 127/55 100 04/30/21 08:39 04/30/21 10:28 04/30/21 08:18 04/30/21 10:28 04/30/21 08:15 Temperature -Last 24 Hours Temperature 100.2 F Temperature 100.2 F Temperature 99.8 F Temperature 100.4 F Temperature 99.2 F Temperature 99.9 F - Labs CBC & Chem 7: 04/29/21 04:22 04/30/21 05:54 Labs: Abnormal lab results 04/29/21 04/29/21 04/29/21 Range/Units 11:26 17:06 23:06 ABG pH (7.320-7.450) POC ABG pCO2 (32.0-48.0) mmHg POC ABG pO2 (83-108) mmHg ABG Hemoglobin (12.0-17.5) ABG Oxyhemoglobin (94-98) ABG Chloride (98-107) mmol/L ABG Glucose (65-95) mg/dL Carboxyhemoglobin (0.5-1.5) BUN (7-17) mg/dL Creatinine (0.6-1.2) mg/dL Glucose (65-100) mg/dL POC Glucose 218 H 223 H 252 H (70-105) mg/dL Arterial Blood Glucose (65-95) mg/dL 04/30/21 04/30/21 04/30/21 Range/Units 03:58 05:23 05:54 ABG pH 7.547 H (7.320-7.450) POC ABG pCO2 31.3 L (32.0-48.0) mmHg POC ABG pO2 58.4 L (83-108) mmHg ABG Hemoglobin 9.6 L (12.0-17.5) ABG Oxyhemoglobin 91.1 L (94-98) ABG Chloride 108.0 H (98-107) mmol/L ABG Glucose 248 H (65-95) mg/dL Carboxyhemoglobin 0.2 L (0.5-1.5) BUN 118 H (7-17) mg/dL Creatinine 3.3 H (0.6-1.2) mg/dL Glucose 263 H (65-100) mg/dL POC Glucose 244 H (70-105) mg/dL Arterial Blood Glucose 248 H (65-95) mg/dL
--- NOTE | 2021-04-30 12:03 | Progress Note ---
<JEREMYPURNIMAElvia - Last Filed: 04/30/21 13:17> Assessment and Plan Assessment and plan: Acute metabolic encephalopathy-persist Acute hypoxic respiratory failure (extubated 04/20)- Re-intubated secondary to Stridor and paradoxical breathing First-degree heart block Resolved ileus versus mechanical obstruction Acute kidney injury with vasomotor nephropathy UTI, Pseudomonas Possible seizure activity Elevated TSH Leukocytosis Mild rhabdomyolysis Hypertension Diabetes mellitus with hyperglycemia on admission CAD Hypothyrodisim Chronic illness debilitymyopathy Obesity -[facility], nephrology, neurology, cardiology consulted, patient recommendations -S/p antibiotic therapy x1, currently on abd for UTI -S/p D10 and D5W gtt, on TF -S/p IV calcium gluconate, regular insulin, D50 -S/p transcutaneous pacing, intermittent demand pacer in place -Renal ultrasound pending -Blood pressure monitoring per protocol -Accu-Cheks every 6, SSI, long acting insulin -IV hydralazine as needed -Avoid ACEi/ARB in setting of ROJELIO -Avoid AV arron blocking agents -Avoid nephrotoxic agents and renally dose medications -BB, add home antihtn regimen as needed -TSH 14.1, T4 4.1, T3 pending-started on levothyroxine -Provegil -As needed racemic epinephrine -S/p steroids -Antibiotic therapy -Trend CBC, BMP, CK DVT/GI prophylaxis: Heparin subcu, PPI, SCDs to bilateral lower extremities while in bed Disposition: ICU The high probability of a clinically significant, sudden or life threatening deterioration of the [PULMONARY, CARDIAC, RENAL] system(s) required my full and direct attention, intervention and personal management. The aggregate critical care time was [35] minutes. This time is in addition to time spent performing reported procedures but includes the following: [X] Data Review and interpretation [X] Patient assessment and monitoring of vital signs [X] Documentation [X] Medication orders and management History Interval history: This is a 80-year-old female with hypertension, diabetes mellitus, RI, breast cancer s/p double mastectomy, and a TIA who presented with hypoglycemia and altered mental status on 04/15 via EMS. Per EMS patient was unresponsive on their arrival and her blood glucose was 38 and she received 1 amp of dextrose patient continued to be unresponsive and only moaned with her eyes deviating to the left. Work-up in the emergency department revealed SIRS, symptomatic bradycardia, acute metabolic encephalopathy, acute hypoxic respiratory failure, elevated TSH, hyperglycemia, hyponatremia, hyperkalemia, acute kidney injury with ATN, and rhabdomyolysis 04/16: Neurology consulted, COVID-19 PCR negative, D10 drip decreased and eventually discontinued by [facility] and started on D5W for 1 L. Hydralazine as needed. Patient had hyper kalemia today and was treated with D50, insulin and Kayexalate. This time examination patient is on assist control tidal volume 450, rate of 16, PEEP of 6 and 25% FiO2. 04/17: Patient started on low-dose beta-angel per cardiology, CPAP trial again per [facility], BUN/creatinine holding steady and hypochloremia/hyponatremia slightly improved and hypokalemia has resolved. This morning a KUB was obtained which was concerning for ileus versus mechanical obstruction and surgery was consulted. Patient was made n.p.o. and NG tube placed to wall suction. Patient was given suppository. Per RN patient did not have a BM even though she was given Kayexalate yesterday. Will obtain a KUB in the a.m. Neurology was consul edwin yesterday and will await further recommendations. Nephew updated at bedside today, Carlos Romero. 04/18: Neurology has ordered EEG/MRI B, [facility] continues to wean MV. Persistent low grade temperature so we will obtain BCx2/UA. Patient has improving leukocytosis, hyponatremia, renal function studies and hypochloremia. She has hypokalemia today which is being repleted. Surgery has signed off today and has okayed resumption of TF. [facility] will trial CPAP for longer today and plans to attempt extubation in AM. Family has requested transfer to [facility] and Dr. Gordon will attempt to contact transfer center. I updated her nephew, Carlos Romero over the phone today abouyt current events and update on transfer ([facility] will conduct a utilization review) 04/19: This morning patient is on CPAP trial at the time of examination, noted to be hypertensive and metoprolol increased to home dose, started on synthroid by [facility], lantus started re hyperglycemia, MRI completed with no acute findings. Severe hypokalemia (repleted and Mg pending). [facility] will contact CPAP trial again today with possible trial extubation tomorrow. 04/20: Patient's leukocytosis and kidney function tests continue to improve. Patient is hypertensive overnight we will restart home hydralazine. [facility] plans to extubate patient today. Family is attempting to transfer to another facility. EEG pending, RT will atmept to contact anesthesiology technologist. Urine culture grew gram negative rods. Increase in lantus 04/21: Increase in Lantus, repleted phos. Patient has started this afternoon and was given racemic epinephrine and started on steroids. Patient will have BiPAP as needed. We will recheck BMP in the a.m. renal function studies continues to decrease. Patient has been hypertensive on evaluation regimen has been changed. 04/22: Lantus increased for hyperglycemia and add amlodipine for better BP control. Patient is on steroids. OT suctioned by RN with catheter in oral care kit and received copious amounts of secretions. Cr continues to decrease. Culture grew Pseudomonas and was changed in accordance to sensitivity. Kerr removed today after clearance from nephrology. 04/23: MRI of the brain was done and unremarkable. Will obtain reconsult to nephrology for further assistance as patient remains in profound encephalopathy despite improvement of blood sugar. Will repeat chest x-ray as patient does have significant congestion physical exam. Tube feeds still ongoing. Continue aspiration precautions. Continue antibiotics when completed for Pseudomonas management 04/24: Neurology input noted, patient unfortunately with no improvement mental status milton, continues with congestion, will defer with Pin Pusher for lasix in the setting of renal failure. will give kayexlate for hyperkalemia, still moans and groans, mittens in place. 04/25: Patient currently intubated, on restraints for safety, Profund encephalopathy persist, although awake she is not following any commands, Call placed to [facility] to see if they will accept transfer for ENT evaluation, while CT neck was negative, it was degraded by motion and unable to determent why patient had this stridor, Racemic Epinephrine was given, [facility] is on ICU saturation, but will call back with an ENT to discuss case. Renal function mildly worse, continue to monitor. Per cardiology, no further arrhythmias noted since admission. Given short duration of atrial fibrillation, along with pt's age, renal fxn, and other co- morbidities,...will resume additional medical therapies for underlying severe multi-vessel CAD (bASA & Plavix). Pt has previously declined intervention of known lesions as per her Primary Contract Negotiation Manager. 04/26: Now with febrile illness, ?developing infection, start on empiric abx, check lactate level, blood cultures, continue management per Sustainable Development Policy Analyst, Monitor leukocytosis, agree with Trach, family updated about denials in transfer request from outside hospitals. 04/27: WBC improving some, still with fever despite antibotics, ID consulted. CXR clear, continue current management, Trach will be planned if ok with family. Blood sugar remains elevated, will adjust insulin LANTUS to 40 units. Patient had previously completed Cefepime. Mental status remains unchanged, still moves upper ext. continue restraints 04/28: Continue supportive care. No new fever noted. Critical care physician will determine if patient should be have a trial of extubation again or if we should proceed straight to trach. Again continue to monitor mental status for complete improvement. 04/29: Per Sustainable Development Policy Analyst discussion with family, will proceed to Tracheostomy, Patients mental status still fluctuating, Continue current management. Surgeon consulted. 04/30: General surgery consulted for trach, continue to trend CBC and BMP. Kidney function slightly worsened today. Increase in Lantus. Tmax 100.2, per ID will consider imaging if leukocytosis remains elevated with fevers. Hospitalist Physical - Constitutional Vitals: Temp Pulse Resp BP Pulse Ox 100.2 F H 96 H 22 129/52 100 04/30/21 08:39 04/30/21 11:24 04/30/21 11:00 04/30/21 11:00 04/30/21 11:00 General appearance: Present: no acute distress, other (sedated) - EENT Eyes: Present: PERRL ENT: clear oral mucosa - Neck Neck: Present: normal ROM - Respiratory Respiratory effort: normal Respiratory: bilateral: CTA - Cardiovascular Rhythm: regular Heart Sounds: Present: S1 & S2. Absent: systolic murmur, diastolic murmur - Extremities Extremities: no ischemia, pulses intact, pulses symmetrical, No edema, normal temperature, normal color Peripheral Pulses: within normal limits - Abdominal General gastrointestinal: soft, non-tender, non-distended, normal bowel sounds - Integumentary Integumentary: Present: warm, dry - Psychiatric Psychiatric: other (Sedated) - Neurologic Neurologic: moves all extremities (To painful stimuli) HEART Score - HEART Score Troponin: Troponin T 0.065 ng/mL (0.00-0.029) H 04/20/21 03:32 Results - Labs CBC & Chem 7: 04/29/21 04:22 04/30/21 05:54 Labs: Laboratory Last Values WBC 15.2 K/mm3 (4.5-11.0) H 04/29/21 04:22 RBC 3.30 M/mm3 (3.65-5.03) L 04/29/21 04:22 Hgb 9.8 gm/dl (10.1-14.3) L 04/29/21 04:22 Hct 31.5 % (30.3-42.9) 04/29/21 04:22 MCV 96 fl (79-97) 04/29/21 04:22 MCH 30 pg (28-32) 04/29/21 04:22 MCHC 31 % (30-34) 04/29/21 04:22 RDW 15.1 % (13.2-15.2) 04/29/21 04:22 Plt Count 324 K/mm3 (140-440) 04/29/21 04:22 Lymph % (Auto) 12.8 % (13.4-35.0) L 04/15/21 17:20 [place] % (Auto) 4.1 % (0.0-7.3) 04/15/21 17:20 Eos % (Auto) 0.3 % (0.0-4.3) 04/15/21 17:20 Baso % (Auto) 0.4 % (0.0-1.8) 04/15/21 17:20 Lymph # (Auto) 1.4 K/mm3 (1.2-5.4) 04/15/21 17:20 [place] # (Auto) 0.5 K/mm3 (0.0-0.8) 04/15/21 17:20 Eos # (Auto) 0.0 K/mm3 (0.0-0.4) 04/15/21 17:20 Baso # (Auto) 0.0 K/mm3 (0.0-0.1) 04/15/21 17:20 Add Manual Diff Complete 04/16/21 05:02 Total Counted 100 04/16/21 05:02 Seg Neutrophils % 82.4 % (40.0-70.0) H 04/15/21 17:20 Seg Neuts % (Manual) 84.0 % (40.0-70.0) H 04/16/21 05:02 Band Neutrophils % 3.0 % 04/16/21 05:02 Lymphocytes % (Manual) 2.0 % (13.4-35.0) L 04/16/21 05:02 Monocytes % (Manual) 10.0 % (0.0-7.3) H 04/16/21 05:02 Metamyelocytes % 1.0 % 04/16/21 05:02 Nucleated RBC % Not Reportable 04/16/21 05:02 Seg Neutrophils # 9.3 K/mm3 (1.8-7.7) H 04/15/21 17:20 Seg Neutrophils # Man 17.8 K/mm3 (1.8-7.7) H 04/16/21 05:02 Band Neutrophils # 0.6 K/mm3 04/16/21 05:02 Lymphocytes # (Manual) 0.4 K/mm3 (1.2-5.4) L 04/16/21 05:02 Abs React Lymphs (Man) 0.0 K/mm3 04/16/21 05:02 Monocytes # (Manual) 2.1 K/mm3 (0.0-0.8) H 04/16/21 05:02 Eosinophils # (Manual) 0.0 K/mm3 (0.0-0.4) 04/16/21 05:02 Basophils # (Manual) 0.0 K/mm3 (0.0-0.1) 04/16/21 05:02 Metamyelocytes # 0.2 K/mm3 04/16/21 05:02 Myelocytes # 0.0 K/mm3 04/16/21 05:02 Promyelocytes # 0.0 K/mm3 04/16/21 05:02 Blast Cells # 0.0 K/mm3 04/16/21 05:02 WBC Morphology Not Reportable 04/16/21 05:02 Hypersegmented Neuts Not Reportable 04/16/21 05:02 Hyposegmented Neuts Not Reportable 04/16/21 05:02 Hypogranular Neuts Not Reportable 04/16/21 05:02 Smudge Cells Not Reportable 04/16/21 05:02 Toxic Granulation Not Reportable 04/16/21 05:02 Toxic Vacuolation Not Reportable 04/16/21 05:02 Dohle Bodies Not Reportable 04/16/21 05:02 Pelger-Huet Anomaly Not Reportable 04/16/21 05:02 Peterson Rods Not Reportable 04/16/21 05:02 Platelet Estimate Consistent w auto 04/16/21 05:02 Clumped Platelets Not Reportable 04/16/21 05:02 Plt Clumps, EDTA Not Reportable 04/16/21 05:02 Large Platelets Not Reportable 04/16/21 05:02 Giant Platelets Not Reportable 04/16/21 05:02 Platelet Satelliting Not Reportable 04/16/21 05:02 Plt Morphology Comment Not Reportable 04/16/21 05:02 RBC Morphology Not Reportable 04/16/21 05:02 Dimorphic RBCs Not Reportable 04/16/21 05:02 Polychromasia Not Reportable 04/16/21 05:02 Hypochromasia Not Reportable 04/16/21 05:02 Poikilocytosis Not Reportable 04/16/21 05:02 Anisocytosis Few 04/16/21 05:02 Microcytosis Not Reportable 04/16/21 05:02 Macrocytosis Not Reportable 04/16/21 05:02 Spherocytes Not Reportable 04/16/21 05:02 Pappenheimer Bodies Not Reportable 04/16/21 05:02 Sickle Cells Not Reportable 04/16/21 05:02 Target Cells Not Reportable 04/16/21 05:02 Tear Drop Cells Not Reportable 04/16/21 05:02 Ovalocytes Not Reportable 04/16/21 05:02 Helmet Cells Not Reportable 04/16/21 05:02 [place] Bodies Not Reportable 04/16/21 05:02 [place] Rings Not Reportable 04/16/21 05:02 Theo Cells Not Reportable 04/16/21 05:02 Bite Cells Not Reportable 04/16/21 05:02 Crenated Cell Not Reportable 04/16/21 05:02 Elliptocytes Not Reportable 04/16/21 05:02 Acanthocytes (Spur) Not Reportable 04/16/21 05:02 Rouleaux Not Reportable 04/16/21 05:02 Hemoglobin C Crystals Not Reportable 04/16/21 05:02 Schistocytes Not Reportable 04/16/21 05:02 Malaria parasites Not Reportable 04/16/21 05:02 James Bodies Not Reportable 04/16/21 05:02 Hem Pathologist Commnt No 04/16/21 05:02 PT 12.2 Sec. (12.2-14.9) 04/15/21 17:20 INR 0.91 (0.87-1.13) 04/15/21 17:20 APTT 31.8 Sec. (24.2-36.6) 04/15/21 17:20 ABG pH 7.547 (7.320-7.450) H 04/30/21 03:58 POC ABG pCO2 31.3 mmHg (32.0-48.0) L 04/30/21 03:58 POC ABG pO2 58.4 mmHg (83-108) L 04/30/21 03:58 POC ABG HCO3 26.6 04/30/21 03:58 ABG O2 Saturation 91.6 (0-100) 04/30/21 03:58 POC ABG Base Excess 4.3 04/30/21 03:58 ABG Hemoglobin 9.6 (12.0-17.5) L 04/30/21 03:58 ABG Oxyhemoglobin 91.1 (94-98) L 04/30/21 03:58 ABG Methemoglobin 0.3 (0.0-1.5) 04/30/21 03:58 ABG Sodium 143.4 mmol/L (136.0-145.0) 04/30/21 03:58 ABG Potassium 3.8 mmol/L (3.40-4.50) 04/30/21 03:58 ABG Chloride 108.0 mmol/L (98-107) H 04/30/21 03:58 ABG Glucose 248 mg/dL (65-95) H 04/30/21 03:58 Carboxyhemoglobin 0.2 (0.5-1.5) L 04/30/21 03:58 FiO2 % 30.0 04/30/21 03:58 Sodium 145 mmol/L (137-145) 04/30/21 05:54 Potassium 3.8 mmol/L (3.6-5.0) 04/30/21 05:54 Chloride 104.8 mmol/L (98-107) 04/30/21 05:54 Carbon Dioxide 28 mmol/L (22-30) 04/30/21 05:54 Anion Gap 16 mmol/L 04/30/21 05:54 BUN 118 mg/dL (7-17) H 04/30/21 05:54 Creatinine 3.3 mg/dL (0.6-1.2) H 04/30/21 05:54 Estimated GFR 16 ml/min 04/30/21 05:54 BUN/Creatinine Ratio 36 % 04/30/21 05:54 Glucose 263 mg/dL (65-100) H 04/30/21 05:54 POC Glucose 244 mg/dL (70-105) H 04/30/21 05:23 Lactic Acid 1.10 mmol/L (0.7-2.0) 04/26/21 09:30 Calcium 9.2 mg/dL (8.4-10.2) 04/30/21 05:54 Phosphorus 2.60 mg/dL (2.5-4.5) 04/22/21 08:00 Magnesium 2.10 mg/dL (1.7-2.3) 04/23/21 07:02 Total Bilirubin 0.30 mg/dL (0.1-1.2) 04/28/21 04:13 Direct Bilirubin < 0.2 mg/dL (0-0.2) 04/28/21 04:13 Indirect Bilirubin 0.1 mg/dL 04/28/21 04:13 AST 61 units/L (5-40) H 04/28/21 04:13 ALT 64 units/L (7-56) H 04/28/21 04:13 Alkaline Phosphatase 95 units/L (35-129) 04/28/21 04:13 Ammonia 46.0 umol/L (25-60) 04/15/21 17:20 Total Creatine Kinase 427 units/L (30-135) H 04/18/21 05:34 CK-MB (CK-2) 9.1 ng/mL (0.0-4.0) H 04/17/21 15:35 CK-MB (CK-2) Rel Index 1.4 (0-4) 04/17/21 15:35 Troponin T 0.065 ng/mL (0.00-0.029) H 04/20/21 03:32 NT-Pro-B Natriuret Pep 697.9 pg/mL (0-900) 04/15/21 17:20 Total Protein 6.2 g/dL (6.3-8.2) L 04/28/21 04:13 Albumin 2.6 g/dL (3.9-5) L 04/28/21 04:13 Albumin/Globulin Ratio 0.7 % 04/28/21 04:13 Triglycerides 103 mg/dL (2-149) 04/17/21 05:04 Cholesterol 122 mg/dL (50-199) 04/17/21 05:04 LDL Cholesterol Direct 55 mg/dL (50-130) 04/17/21 05:04 HDL Cholesterol 61 mg/dL (40-59) H 04/17/21 05:04 Cholesterol/HDL Ratio 2.00 % 04/17/21 05:04 Procalcitonin 0.20 ng/mL (<0.15) 04/16/21 19:01 TSH 14.190 mlU/mL (0.270-4.200) H 04/15/21 17:20 Thyroxine (T4) 4.1 ug/dL (4.0-12.0) 04/16/21 19:01 Free T3 Index 1.1 pg/mL (2.3-4.2) L 04/16/21 19:01 Arterial Blood Glucose 248 mg/dL (65-95) H 04/30/21 03:58 Arterial Blood Ionized Calcium 4.8 mg/dL (4.6-5.3) 04/30/21 03:58 Urine Color Yellow (Yellow) 04/18/21 09:11 Urine Turbidity Clear (Clear) 04/18/21 09:11 Urine pH 6.0 (5.0-7.0) 04/18/21 09:11 Ur Specific [place] 1.014 (1.003-1.030) 04/18/21 09:11 Urine Protein >500 mg/dL (Negative) 04/18/21 09:11 Urine Glucose (UA) Neg mg/dL (Negative) 04/18/21 09:11 Urine Ketones Neg mg/dL (Negative) 04/18/21 09:11 Urine Blood Sm (Negative) 04/18/21 09:11 Urine Nitrite Neg (Negative) 04/18/21 09:11 Urine Bilirubin Neg (Negative) 04/18/21 09:11 Urine Urobilinogen 2.0 mg/dL (<2.0) 04/18/21 09:11 Ur Leukocyte Esterase Lg (Negative) 04/18/21 09:11 Urine WBC (Auto) 34.0 /HPF (0.0-6.0) H 04/18/21 09:11 Urine RBC (Auto) 18.0 /HPF (0.0-6.0) 04/18/21 09:11 U Epithel Cells (Auto) < 1.0 /HPF (0-13.0) 04/16/21 00:09 Urine Bacteria (Auto) 1+ /HPF (Negative) 04/16/21 00:09 Urine Creatinine 24.4 mg/dL (0.1-20.0) H 04/16/21 00:12 Urine Sodium 97 mmol/L 04/16/21 00:12 Random Vancomycin 15.5 ug/mL (0-40.0) 04/27/21 07:52 Salicylates 4.1 mg/dL (2.8-20.0) 04/15/21 17:20 Acetaminophen 5.0 ug/mL (10.0-30.0) L 04/15/21 17:20 Plasma/Serum Alcohol 0.02 % (0-0.07) 04/15/21 17:20 Coronavirus (PCR) Negative (Negative) 04/16/21 Unknown Microbiology: Microbiology 04/26/21 09:30 Peripheral/Venous Blood Culture - Preliminary NO GROWTH AFTER 72 HOURS 04/26/21 09:30 Peripheral/Venous Blood Culture - Preliminary NO GROWTH AFTER 72 HOURS Kerr/IV: Voiding Method Indwelling Catheter Active Medications - Current Medications Current Medications: Generic Name Dose Route Start Last Admin Trade Name Freq PRN Reason Stop Dose Admin Acetaminophen 650 mg 04/15/21 19:11 04/27/21 12:13 Acetaminophen 325 Mg Tab PO 650 mg Q6H PRN Administration Pain MILD(1-3)/Fever >100.5/SEXTON Albuterol/Ipratropium 1 ampul 04/24/21 14:00 04/30/21 08:18 Ipratropium/Albuterol Sulfate 3 Ml Ampul.Neb IH 1 ampul Q6HRT WOLFGANG Administration Amlodipine Besylate 10 mg 04/25/21 10:00 04/30/21 10:28 Amlodipine 10 Mg Tab PO 10 mg DAILY WOLFGANG Administration Lipase/Protease/Amylase 1 each 04/16/21 12:52 Lipase 10,500/Protease 25,000/Amylase 43,750 (Units) Dr Simpson FEEDTUBE PRN PRN For Clogged Feeding Tube Aspirin 81 mg 04/25/21 10:00 04/30/21 10:28 Aspirin 81 Mg Tab Chew PO 81 mg QDAY WOLFGANG Administration Bisacodyl 10 mg 04/17/21 11:01 04/28/21 21:04 Bisacodyl 10 Mg Rect Supp UT 10 mg QDAY PRN Administration Constipation Brimonidine Tartrate 1 drops 04/17/21 22:00 04/30/21 10:30 Brimonidine 0.15% Ophth Soln OU 1 drops BID WOLFGANG Administration Clopidogrel Bisulfate 75 mg 04/25/21 10:00 04/30/21 10:27 Clopidogrel 75 Mg Tab PO 75 mg QDAY WOLFGANG Administration Docusate Sodium 100 mg 04/29/21 15:00 04/30/21 10:27 Docusate Sodium 100 Mg/10 Ml Oral Liqd PO 100 mg BID WOLFGANG Administration Epinephrine 0.5 ml 04/21/21 12:56 Epinephrine Racemic 2.25% 0.5ml Nebu IH Q4HRT PRN Shortness Of Breath Famotidine 20 mg 04/17/21 10:00 04/30/21 10:28 Famotidine 20 Mg Tab PO 20 mg DAILY WOLFGANG Administration Fentanyl 50 mcg 04/24/21 13:03 Fentanyl 100 Mcg/2 Ml Inj IV Q10MIN PRN ANALGESIA Heparin Sodium (Porcine) 5,000 unit 04/15/21 22:00 04/30/21 10:31 Heparin 5,000 Unit/1 Ml Vial SUB-Q 5,000 unit Q12HR WOLFGANG Administration Hydralazine HCl 10 mg 04/16/21 18:00 04/24/21 05:25 Hydralazine 20 Mg/1 Ml Inj IV 10 mg Q4HR PRN Administration Hypertension Hydralazine HCl 100 mg 04/21/21 14:00 04/30/21 08:49 Hydralazine 100 Mg Tab PO 100 mg TID WOLFGANG Administration Hydrophilic Ointment 1 applic 04/15/21 17:24 Lip Therapy Vaseline TP Q2HR PRN Dry Lips Fentanyl Citrate 2,000 mcg in 100 mls @ 4.765 mls/hr 04/24/21 14:00 04/25/21 09:15 Fentanyl Drip Premix IV 0 mcg/kg/hr TITR WOLFGANG 0 mls/hr Titration Protocol 1 MCG/KG/HR Propofol 1,000 mg in 100 mls @ 2.859 mls/hr 04/24/21 14:00 04/25/21 09:10 Diprivan 10 Mg/Ml IV 0 mcg/kg/min TITR WOLFGANG 0 mls/hr Titration Protocol 5 MCG/KG/MIN Cefepime HCl 2 gm in 100 mls @ 200 mls/hr 04/27/21 10:00 04/30/21 10:28 Cefepime/Ns 2 Gm/100 Ml IV 200 mls/hr Q24H WOLFGANG Administration Protocol Metronidazole 500 mg in 100 mls @ 100 mls/hr 04/30/21 12:00 Flagyl 500 Mg/100 Ml IV Q8H WOLFGANG Protocol Insulin Glargine 45 units 05/01/21 08:00 Insulin Glargine 100 Units/Ml SUB-Q QAMDIAB [facility] Insulin Human Lispro 0 unit 04/16/21 15:00 04/30/21 05:27 Insulin Lispro 100 Unit/Ml SUB-Q 4 unit Q6HR WOLFGANG Administration Protocol Latanoprost 1 drops 04/17/21 18:00 04/29/21 17:48 Latanoprost 0.005% Ophth Soln 2.5 Ml OU 1 drops QPM WOLFGANG Administration Levothyroxine Sodium 25 mcg 04/19/21 06:00 04/30/21 05:27 Levothyroxine 25 Mcg Tab PO 25 mcg DAILY@0600 WOLFGANG Administration Metoprolol Tartrate 25 mg 04/19/21 10:00 04/30/21 10:28 Metoprolol Tartrate 25 Mg Tab PO 25 mg BID WOLFGANG Administration Multi-Ingred Cream/Lotion/Oil/Oint 1 applic 04/15/21 17:24 04/26/21 10:05 Mineral Oil/Petrolatum, White Ophth Oint 3.5 Gm OU 1 applic Q4HR PRN Administration Dry Eye(s) Pravastatin Sodium 20 mg 04/19/21 22:00 04/29/21 21:33 Pravastatin 20 Mg Tab PO 20 mg QHS WOLFGANG Administration Scopolamine 1 each 04/20/21 18:00 04/29/21 09:35 Scopolamine Transdermal Patch 72 Hr TD 1 each Q3D WOLFGANG Administration Simple Syrup 15 ml 04/16/21 12:52 Simple Syrup 15 Ml FEEDTUBE PRN PRN Hypoglycemia Simple Syrup 30 ml 04/16/21 12:52 Simple Syrup 15 Ml FEEDTUBE PRN PRN Hypoglycemia Sodium Bicarbonate 325 mg 04/16/21 12:52 Sodium Bicarbonate 325 Mg Tab FEEDTUBE PRN PRN For Clogged Feeding Tube Sodium Chloride 10 ml 04/15/21 22:00 04/30/21 10:29 Sodium Chloride 0.9% 10 Ml Flush Syringe IV 10 ml BID WOLFGANG Administration Sodium Chloride 10 ml 04/15/21 19:11 04/24/21 05:27 Sodium Chloride 0.9% 10 Ml Flush Syringe IV 10 ml PRN PRN Administration LINE FLUSH Tamsulosin HCl 0.4 mg 04/25/21 14:00 04/30/21 10:27 Tamsulosin 0.4 Mg Cap PO 0.4 mg QDAY WOLFGANG Administration Timolol Maleate 1 drops 04/19/21 10:00 04/30/21 10:30 Timolol 0.5% Ophth Soln 5 Ml OU 1 drops QDAY WOLFGANG Administration Nutrition/Malnutrition Assess - Dietary Evaluation Nutrition/Malnutrition Findings: Nutrition Notes Start: 04/16/21 12:31 Freq: Status: Active Protocol: Document 04/30/21 09:36 LP (Rec: 04/30/21 09:39 LP [id number]) Nutrition Notes Initial or Follow up Reassessment Current Diagnosis Acute Kidney Injury,Coronary Artery Disease,Diabetes, Hypertension Other Pertinent Diagnosis UTI, acute metabolic encephalopathy Current Diet Glucerna 1.2 at 50ml/hr Labs/Tests BUN 118 Cr 3.3 BG 263 Pertinent Medications Reviewed Height 5 ft 6 in Weight 93 kg [place] Body Weight (kg) 59.09 BMI 33.0 Weight Status Obese Subjective/Other Information Pt tolerating TF at goal rate. Pt on vent. Percent of energy/protein needs met: 100% energy 61% pro Burn Absent Trauma Absent Difficulty In Swallowing Current % PO Negligible Minimum of two criteria No physical signs of malnutrition #1 Nutrition Diagnosis Inadequate oral intake Diagnosis Progress(for reassessment Continues documentation) Is patient on ventilator? Yes Is Patient Ambulatory and/or Out of Bed No REE-([place]-St. Jeor-confined to bed) 1700.760 Kcal/Kg value to use for calculation 15 Approximate Energy Requirements Using 1395 kcal/Kg Calculation Used for Recommendations Kcal/kg Additional Notes Pro needs >2g/kg IBW: >118g/ day Fluid needs 1ml/kcal Nutrition Intervention Change Diet Order: TF Nutrition Support: Continue Glucerna 1.2 at 50ml/ hr with 50ml water flush q4h. Kcal 1,440 Protein (gm) 72 Fluid (mL) 966 Goal #1 TF tolerance Goal #2 TF to meet energy and pro needs as best possible Anticipated Discharge Needs: unable to determine at this time Follow-Up By: 05/07/21 Additional Comments Follow for stable TF <RUDOLPH MARIE - Last Filed: 05/01/21 07:18> Assessment and Plan Assessment and plan: I saw and evaluated the patient. I agree with the findings and the plan of care as documented in the Nurse Practitioner's~note, with the following corrections and additions. Hospitalist Physical - Constitutional Vitals: Temp Pulse Resp BP Pulse Ox 98.8 F 76 18 117/49 97 05/01/21 03:33 05/01/21 07:00 05/01/21 07:00 05/01/21 07:00 05/01/21 07:00 HEART Score - HEART Score Troponin: Troponin T 0.065 ng/mL (0.00-0.029) H 04/20/21 03:32 Results - Labs CBC & Chem 7: 04/29/21 04:22 04/30/21 05:54 Labs: Laboratory Last Values WBC 15.2 K/mm3 (4.5-11.0) H 04/29/21 04:22 RBC 3.30 M/mm3 (3.65-5.03) L 04/29/21 04:22 Hgb 9.8 gm/dl (10.1-14.3) L 04/29/21 04:22 Hct 31.5 % (30.3-42.9) 04/29/21 04:22 MCV 96 fl (79-97) 04/29/21 04:22 MCH 30 pg (28-32) 04/29/21 04:22 MCHC 31 % (30-34) 04/29/21 04:22 RDW 15.1 % (13.2-15.2) 04/29/21 04:22 Plt Count 324 K/mm3 (140-440) 04/29/21 04:22 Lymph % (Auto) 12.8 % (13.4-35.0) L 04/15/21 17:20 [place] % (Auto) 4.1 % (0.0-7.3) 04/15/21 17:20 Eos % (Auto) 0.3 % (0.0-4.3) 04/15/21 17:20 Baso % (Auto) 0.4 % (0.0-1.8) 04/15/21 17:20 Lymph # (Auto) 1.4 K/mm3 (1.2-5.4) 04/15/21 17:20 [place] # (Auto) 0.5 K/mm3 (0.0-0.8) 04/15/21 17:20 Eos # (Auto) 0.0 K/mm3 (0.0-0.4) 04/15/21 17:20 Baso # (Auto) 0.0 K/mm3 (0.0-0.1) 04/15/21 17:20 Add Manual Diff Complete 04/16/21 05:02 Total Counted 100 04/16/21 05:02 Seg Neutrophils % 82.4 % (40.0-70.0) H 04/15/21 17:20 Seg Neuts % (Manual) 84.0 % (40.0-70.0) H 04/16/21 05:02 Band Neutrophils % 3.0 % 04/16/21 05:02 Lymphocytes % (Manual) 2.0 % (13.4-35.0) L 04/16/21 05:02 Monocytes % (Manual) 10.0 % (0.0-7.3) H 04/16/21 05:02 Metamyelocytes % 1.0 % 04/16/21 05:02 Nucleated RBC % Not Reportable 04/16/21 05:02 Seg Neutrophils # 9.3 K/mm3 (1.8-7.7) H 04/15/21 17:20 Seg Neutrophils # Man 17.8 K/mm3 (1.8-7.7) H 04/16/21 05:02 Band Neutrophils # 0.6 K/mm3 04/16/21 05:02 Lymphocytes # (Manual) 0.4 K/mm3 (1.2-5.4) L 04/16/21 05:02 Abs React Lymphs (Man) 0.0 K/mm3 04/16/21 05:02 Monocytes # (Manual) 2.1 K/mm3 (0.0-0.8) H 04/16/21 05:02 Eosinophils # (Manual) 0.0 K/mm3 (0.0-0.4) 04/16/21 05:02 Basophils # (Manual) 0.0 K/mm3 (0.0-0.1) 04/16/21 05:02 Metamyelocytes # 0.2 K/mm3 04/16/21 05:02 Myelocytes # 0.0 K/mm3 04/16/21 05:02 Promyelocytes # 0.0 K/mm3 04/16/21 05:02 Blast Cells # 0.0 K/mm3 04/16/21 05:02 WBC Morphology Not Reportable 04/16/21 05:02 Hypersegmented Neuts Not Reportable 04/16/21 05:02 Hyposegmented Neuts Not Reportable 04/16/21 05:02 Hypogranular Neuts Not Reportable 04/16/21 05:02 Smudge Cells Not Reportable 04/16/21 05:02 Toxic Granulation Not Reportable 04/16/21 05:02 Toxic Vacuolation Not Reportable 04/16/21 05:02 Dohle Bodies Not Reportable 04/16/21 05:02 Pelger-Huet Anomaly Not Reportable 04/16/21 05:02 Peterson Rods Not Reportable 04/16/21 05:02 Platelet Estimate Consistent w auto 04/16/21 05:02 Clumped Platelets Not Reportable 04/16/21 05:02 Plt Clumps, EDTA Not Reportable 04/16/21 05:02 Large Platelets Not Reportable 04/16/21 05:02 Giant Platelets Not Reportable 04/16/21 05:02 Platelet Satelliting Not Reportable 04/16/21 05:02 Plt Morphology Comment Not Reportable 04/16/21 05:02 RBC Morphology Not Reportable 04/16/21 05:02 Dimorphic RBCs Not Reportable 04/16/21 05:02 Polychromasia Not Reportable 04/16/21 05:02 Hypochromasia Not Reportable 04/16/21 05:02 Poikilocytosis Not Reportable 04/16/21 05:02 Anisocytosis Few 04/16/21 05:02 Microcytosis Not Reportable 04/16/21 05:02 Macrocytosis Not Reportable 04/16/21 05:02 Spherocytes Not Reportable 04/16/21 05:02 Pappenheimer Bodies Not Reportable 04/16/21 05:02 Sickle Cells Not Reportable 04/16/21 05:02 Target Cells Not Reportable 04/16/21 05:02 Tear Drop Cells Not Reportable 04/16/21 05:02 Ovalocytes Not Reportable 04/16/21 05:02 Helmet Cells Not Reportable 04/16/21 05:02 [place] Bodies Not Reportable 04/16/21 05:02 [place] Rings Not Reportable 04/16/21 05:02 [place] Cells Not Reportable 04/16/21 05:02 Bite Cells Not Reportable 04/16/21 05:02 Crenated Cell Not Reportable 04/16/21 05:02 Elliptocytes Not Reportable 04/16/21 05:02 Acanthocytes (Spur) Not Reportable 04/16/21 05:02 Rouleaux Not Reportable 04/16/21 05:02 Hemoglobin C Crystals Not Reportable 04/16/21 05:02 Schistocytes Not Reportable 04/16/21 05:02 Malaria parasites Not Reportable 04/16/21 05:02 James Bodies Not Reportable 04/16/21 05:02 Hem Pathologist Commnt No 04/16/21 05:02 PT 12.2 Sec. (12.2-14.9) 04/15/21 17:20 INR 0.91 (0.87-1.13) 04/15/21 17:20 APTT 31.8 Sec. (24.2-36.6) 04/15/21 17:20 ABG pH 7.466 (7.320-7.450) H 05/01/21 04:02 POC ABG pCO2 35.9 mmHg (32.0-48.0) 05/01/21 04:02 POC ABG pO2 61.4 mmHg (83-108) L 05/01/21 04:02 POC ABG HCO3 25.3 05/01/21 04:02 ABG O2 Saturation 91.9 (0-100) 05/01/21 04:02 POC ABG Base Excess 1.6 05/01/21 04:02 ABG Hemoglobin 9.0 (12.0-17.5) L 05/01/21 04:02 ABG Oxyhemoglobin 91.1 (94-98) L 05/01/21 04:02 ABG Methemoglobin 0.3 (0.0-1.5) 05/01/21 04:02 ABG Sodium 143.6 mmol/L (136.0-145.0) 05/01/21 04:02 ABG Potassium 3.5 mmol/L (3.40-4.50) 05/01/21 04:02 ABG Chloride 110.0 mmol/L (98-107) H 05/01/21 04:02 ABG Glucose 245 mg/dL (65-95) H 05/01/21 04:02 Carboxyhemoglobin 0.6 (0.5-1.5) 05/01/21 04:02 FiO2 % 30.0 05/01/21 04:02 Sodium 145 mmol/L (137-145) 04/30/21 05:54 Potassium 3.8 mmol/L (3.6-5.0) 04/30/21 05:54 Chloride 104.8 mmol/L (98-107) 04/30/21 05:54 Carbon Dioxide 28 mmol/L (22-30) 04/30/21 05:54 Anion Gap 16 mmol/L 04/30/21 05:54 BUN 118 mg/dL (7-17) H 04/30/21 05:54 Creatinine 3.3 mg/dL (0.6-1.2) H 04/30/21 05:54 Estimated GFR 16 ml/min 04/30/21 05:54 BUN/Creatinine Ratio 36 % 04/30/21 05:54 Glucose 263 mg/dL (65-100) H 04/30/21 05:54 POC Glucose 197 mg/dL (70-105) H 04/30/21 23:51 Lactic Acid 1.10 mmol/L (0.7-2.0) 04/26/21 09:30 Calcium 9.2 mg/dL (8.4-10.2) 04/30/21 05:54 Phosphorus 2.60 mg/dL (2.5-4.5) 04/22/21 08:00 Magnesium 2.10 mg/dL (1.7-2.3) 04/23/21 07:02 Total Bilirubin 0.30 mg/dL (0.1-1.2) 04/28/21 04:13 Direct Bilirubin < 0.2 mg/dL (0-0.2) 04/28/21 04:13 Indirect Bilirubin 0.1 mg/dL 04/28/21 04:13 AST 61 units/L (5-40) H 04/28/21 04:13 ALT 64 units/L (7-56) H 04/28/21 04:13 Alkaline Phosphatase 95 units/L (35-129) 04/28/21 04:13 Ammonia 46.0 umol/L (25-60) 04/15/21 17:20 Total Creatine Kinase 427 units/L (30-135) H 04/18/21 05:34 CK-MB (CK-2) 9.1 ng/mL (0.0-4.0) H 04/17/21 15:35 CK-MB (CK-2) Rel Index 1.4 (0-4) 04/17/21 15:35 Troponin T 0.065 ng/mL (0.00-0.029) H 04/20/21 03:32 NT-Pro-B Natriuret Pep 697.9 pg/mL (0-900) 04/15/21 17:20 Total Protein 6.2 g/dL (6.3-8.2) L 04/28/21 04:13 Albumin 2.6 g/dL (3.9-5) L 04/28/21 04:13 Albumin/Globulin Ratio 0.7 % 04/28/21 04:13 Triglycerides 103 mg/dL (2-149) 04/17/21 05:04 Cholesterol 122 mg/dL (50-199) 04/17/21 05:04 LDL Cholesterol Direct 55 mg/dL (50-130) 04/17/21 05:04 HDL Cholesterol 61 mg/dL (40-59) H 04/17/21 05:04 Cholesterol/HDL Ratio 2.00 % 04/17/21 05:04 Procalcitonin 0.20 ng/mL (<0.15) 04/16/21 19:01 TSH 14.190 mlU/mL (0.270-4.200) H 04/15/21 17:20 Thyroxine (T4) 4.1 ug/dL (4.0-12.0) 04/16/21 19:01 Free T3 Index 1.1 pg/mL (2.3-4.2) L 04/16/21 19:01 Arterial Blood Glucose 245 mg/dL (65-95) H 05/01/21 04:02 Arterial Blood Ionized Calcium 5.0 mg/dL (4.6-5.3) 05/01/21 04:02 Urine Color Yellow (Yellow) 04/30/21 17:45 Urine Turbidity Cloudy (Clear) 04/30/21 17:45 Urine pH 5.0 (5.0-7.0) 04/30/21 17:45 Ur Specific [place] 1.016 (1.003-1.030) 04/30/21 17:45 Urine Protein 100 mg/dl mg/dL (Negative) 04/30/21 17:45 Urine Glucose (UA) Neg mg/dL (Negative) 04/30/21 17:45 Urine Ketones Neg mg/dL (Negative) 04/30/21 17:45 Urine Blood Mod (Negative) 04/30/21 17:45 Urine Nitrite Neg (Negative) 04/30/21 17:45 Urine Bilirubin Neg (Negative) 04/30/21 17:45 Urine Urobilinogen < 2.0 mg/dL (<2.0) 04/30/21 17:45 Ur Leukocyte Esterase Mod (Negative) 04/30/21 17:45 Urine WBC (Auto) 48.0 /HPF (0.0-6.0) H 04/30/21 17:45 Urine RBC (Auto) 103.0 /HPF (0.0-6.0) 04/30/21 17:45 U Epithel Cells (Auto) < 1.0 /HPF (0-13.0) 04/16/21 00:09 Urine Bacteria (Auto) 1+ /HPF (Negative) 04/16/21 00:09 Urine Mucus Few /HPF 04/30/21 17:45 Urine Yeast (Budding) 3+ /HPF 04/30/21 17:45 Urine Creatinine 24.4 mg/dL (0.1-20.0) H 04/16/21 00:12 Urine Sodium 97 mmol/L 04/16/21 00:12 Random Vancomycin 15.5 ug/mL (0-40.0) 04/27/21 07:52 Salicylates 4.1 mg/dL (2.8-20.0) 04/15/21 17:20 Acetaminophen 5.0 ug/mL (10.0-30.0) L 04/15/21 17:20 Plasma/Serum Alcohol 0.02 % (0-0.07) 04/15/21 17:20 Coronavirus (PCR) Negative (Negative) 04/16/21 Unknown Microbiology: Microbiology 04/30/21 16:07 Peripheral/Venous Blood Culture - Preliminary Culture in Progress 04/30/21 16:07 Peripheral/Venous Blood Culture - Preliminary Culture in Progress 04/26/21 09:30 Peripheral/Venous Blood Culture - Preliminary NO GROWTH AFTER 4 DAYS 04/26/21 09:30 Peripheral/Venous Blood Culture - Preliminary NO GROWTH AFTER 4 DAYS Kerr/IV: Voiding Method Indwelling Catheter Active Medications - Current Medications Current Medications: Generic Name Dose Route Start Last Admin Trade Name Freq PRN Reason Stop Dose Admin Acetaminophen 650 mg 04/15/21 19:11 04/30/21 20:14 Acetaminophen 325 Mg Tab PO 650 mg Q6H PRN Administration Pain MILD(1-3)/Fever >100.5/SEXTON Albuterol/Ipratropium 1 ampul 04/24/21 14:00 05/01/21 02:18 Ipratropium/Albuterol Sulfate 3 Ml Ampul.Neb IH 1 ampul Q6HRT WOLFGANG Administration Amlodipine Besylate 10 mg 04/25/21 10:00 04/30/21 10:28 Amlodipine 10 Mg Tab PO 10 mg DAILY WOLFGANG Administration Lipase/Protease/Amylase 1 each 04/16/21 12:52 Lipase 10,500/Protease 25,000/Amylase 43,750 (Units) Dr Simpson FEEDTUBE PRN PRN For Clogged Feeding Tube Aspirin 81 mg 04/25/21 10:00 04/30/21 10:28 Aspirin 81 Mg Tab Chew PO 81 mg QDAY WOLFGANG Administration Bisacodyl 10 mg 04/17/21 11:01 04/28/21 21:04 Bisacodyl 10 Mg Rect Supp UT 10 mg QDAY PRN Administration Constipation Brimonidine Tartrate 1 drops 04/17/21 22:00 04/30/21 21:45 Brimonidine 0.15% Ophth Soln OU 1 drops BID WOLFGANG Administration Docusate Sodium 100 mg 04/29/21 15:00 04/30/21 21:42 Docusate Sodium 100 Mg/10 Ml Oral Liqd PO 100 mg BID WOLFGANG Administration Epinephrine 0.5 ml 04/21/21 12:56 Epinephrine Racemic 2.25% 0.5ml Nebu IH Q4HRT PRN Shortness Of Breath Famotidine 20 mg 04/17/21 10:00 04/30/21 10:28 Famotidine 20 Mg Tab PO 20 mg DAILY WOLFGANG Administration Fentanyl 50 mcg 04/24/21 13:03 Fentanyl 100 Mcg/2 Ml Inj IV Q10MIN PRN ANALGESIA Heparin Sodium (Porcine) 5,000 unit 04/15/21 22:00 04/30/21 21:43 Heparin 5,000 Unit/1 Ml Vial SUB-Q 5,000 unit Q12HR WOLFGANG Administration Hydralazine HCl 10 mg 04/16/21 18:00 04/24/21 05:25 Hydralazine 20 Mg/1 Ml Inj IV 10 mg Q4HR PRN Administration Hypertension Hydralazine HCl 100 mg 04/21/21 14:00 04/30/21 20:00 Hydralazine 100 Mg Tab PO Not Given TID WOLFGANG Hydrophilic Ointment 1 applic 04/15/21 17:24 Lip Therapy Vaseline TP Q2HR PRN Dry Lips Fentanyl Citrate 2,000 mcg in 100 mls @ 4.765 mls/hr 04/24/21 14:00 04/25/21 09:15 Fentanyl Drip Premix IV 0 mcg/kg/hr TITR WOLFGANG 0 mls/hr Titration Protocol 1 MCG/KG/HR Propofol 1,000 mg in 100 mls @ 2.859 mls/hr 04/24/21 14:00 04/25/21 09:10 Diprivan 10 Mg/Ml IV 0 mcg/kg/min TITR WOLFGANG 0 mls/hr Titration Protocol 5 MCG/KG/MIN Cefepime HCl 2 gm in 100 mls @ 200 mls/hr 04/27/21 10:00 04/30/21 10:28 Cefepime/Ns 2 Gm/100 Ml IV 200 mls/hr Q24H WOLFGANG Administration Protocol Metronidazole 500 mg in 100 mls @ 100 mls/hr 04/30/21 12:00 05/01/21 03:39 Flagyl 500 Mg/100 Ml IV 100 mls/hr Q8H [facility] Administration Protocol Insulin Glargine 45 units 05/01/21 08:00 Insulin Glargine 100 Units/Ml SUB-Q QAMDIAB [facility] Insulin Human Lispro 0 unit 04/16/21 15:00 05/01/21 06:10 Insulin Lispro 100 Unit/Ml SUB-Q 3 unit Q6HR [facility] Administration Protocol Latanoprost 1 drops 04/17/21 18:00 04/30/21 17:31 Latanoprost 0.005% Ophth Soln 2.5 Ml OU 1 drops QPM WOLFGANG Administration Levothyroxine Sodium 25 mcg 04/19/21 06:00 05/01/21 06:10 Levothyroxine 25 Mcg Tab PO 25 mcg DAILY@0600 [facility] Administration Metoprolol Tartrate 25 mg 04/19/21 10:00 04/30/21 21:43 Metoprolol Tartrate 25 Mg Tab PO 25 mg BID WOLFGANG Administration Multi-Ingred Cream/Lotion/Oil/Oint 1 applic 04/15/21 17:24 04/26/21 10:05 Mineral Oil/Petrolatum, White Ophth Oint 3.5 Gm OU 1 applic Q4HR PRN Administration Dry Eye(s) Pravastatin Sodium 20 mg 04/19/21 22:00 04/30/21 21:42 Pravastatin 20 Mg Tab PO 20 mg QHS WOLFGANG Administration Scopolamine 1 each 04/20/21 18:00 04/29/21 09:35 Scopolamine Transdermal Patch 72 Hr TD 1 each Q3D WOLFGANG Administration Simple Syrup 15 ml 04/16/21 12:52 Simple Syrup 15 Ml FEEDTUBE PRN PRN Hypoglycemia Simple Syrup 30 ml 04/16/21 12:52 Simple Syrup 15 Ml FEEDTUBE PRN PRN Hypoglycemia Sodium Bicarbonate 325 mg 04/16/21 12:52 Sodium Bicarbonate 325 Mg Tab FEEDTUBE PRN PRN For Clogged Feeding Tube Sodium Chloride 10 ml 04/15/21 22:00 04/30/21 21:45 Sodium Chloride 0.9% 10 Ml Flush Syringe IV 10 ml BID WOLFGANG Administration Sodium Chloride 10 ml 04/15/21 19:11 04/24/21 05:27 Sodium Chloride 0.9% 10 Ml Flush Syringe IV 10 ml PRN PRN Administration LINE FLUSH Tamsulosin HCl 0.4 mg 04/25/21 14:00 04/30/21 10:27 Tamsulosin 0.4 Mg Cap PO 0.4 mg QDAY WOLFGANG Administration Timolol Maleate 1 drops 04/19/21 10:00 04/30/21 10:30 Timolol 0.5% Ophth Soln 5 Ml OU 1 drops QDAY WOLFGANG Administration Nutrition/Malnutrition Assess - Dietary Evaluation Nutrition/Malnutrition Findings: Nutrition Notes Start: 04/16/21 12:31 Freq: Status: Active Protocol: Document 04/30/21 09:36 LP (Rec: 04/30/21 09:39 LP [id number]) Nutrition Notes Initial or Follow up Reassessment Current Diagnosis Acute Kidney Injury,Coronary Artery Disease,Diabetes, Hypertension Other Pertinent Diagnosis UTI, acute metabolic encephalopathy Current Diet Glucerna 1.2 at 50ml/hr Labs/Tests BUN 118 Cr 3.3 BG 263 Pertinent Medications Reviewed Height 5 ft 6 in Weight 93 kg [place] Body Weight (kg) 59.09 BMI 33.0 Weight Status Obese Subjective/Other Information Pt tolerating TF at goal rate. Pt on vent. Percent of energy/protein needs met: 100% energy 61% pro Burn Absent Trauma Absent Difficulty In Swallowing Current % PO Negligible Minimum of two criteria No physical signs of malnutrition #1 Nutrition Diagnosis Inadequate oral intake Diagnosis Progress(for reassessment Continues documentation) Is patient on ventilator? Yes Is Patient Ambulatory and/or Out of Bed No REE-([facility]-confined to bed) 1700.760 Kcal/Kg value to use for calculation 15 Approximate Energy Requirements Using 1395 kcal/Kg Calculation Used for Recommendations Kcal/kg Additional Notes Pro needs >2g/kg IBW: >118g/ day Fluid needs 1ml/kcal Nutrition Intervention Change Diet Order: TF Nutrition Support: Continue Glucerna 1.2 at 50ml/ hr with 50ml water flush q4h. Kcal 1,440 Protein (gm) 72 Fluid (mL) 966 Goal #1 TF tolerance Goal #2 TF to meet energy and pro needs as best possible Anticipated Discharge Needs: unable to determine at this time Follow-Up By: 05/07/21 Additional Comments Follow for stable TF
[2021-04-30] MEDS: metroNIDAZOLE/NS 500 MG/100 ML 500 MG/100 ML BAG IV SCH ×2 (12:41→20:44)
--- NOTE | 2021-04-30 13:39 | Progress Note ---
Assessment and Plan 1. Acute kidney injury: Vasomotor ROJELIO. ATN likely. Renal US negative for hydro. Baseline renal function is unknown. Monitor renal function. Non-oliguric. Pt has hui catheter. Creatinine level continue to increase. Renal prognosis is guarded. Avoid nephrotoxic agents. Meds dosage based on GFR. Monitor for CLINICAL PSYCHOLOGIST LICENSED needs. 2. FEN: Hypokalemia, replete K as needed, monitor. Hyponatremia, improved. Monitor lytes and volume status. 3. Acute hypoxemic respiratory failure: Extubated, re-intubated 04/24. 4. Acute encephalopathy: Hypoglycemia. MRI brain negative. Seen by Neuro. 5. Pseudomonas UTI. 6. Hypertension. 7. DM type 2. 8. Mild rhabdomyolysis. 9. Mildly complex R renal cyst. Subjective: Patient was seen and examined at the bedside. Examination: General appearance: well-developed, appears stated age, intubated on vent HEENT: BRUCE, atraumatic Neck: trachea midline Respiratory: Coarse breath sounds heard Heart: S1S2, no murmur Abdomen: soft, obese, bowel sounds heard, NT Integumentary: no obvious rash Neurologic: stuporous Ext: no edema noted : Hui catheter Subjective Date of service: 04/30/21 Principal diagnosis: Ac. resp failure; AMS; Hypoglycemia; ROJELIO; Hyperkalemia; DM II Objective - Vital Signs Vital signs: Vital Signs - 12hr 04/30/21 04/30/21 04/30/21 02:00 02:30 02:31 Temperature Pulse Rate 96 H 93 H Pulse Rate [ 99 H Bilateral] Pulse Rate [ From Monitor] Respiratory 25 H 17 Rate Respiratory 22 Rate [Bilateral ] Blood Pressure 125/50 125/56 O2 Sat by Pulse 100 99 Oximetry 04/30/21 04/30/21 04/30/21 03:00 03:30 03:55 Temperature 100.2 F H Pulse Rate 99 H 97 H Pulse Rate [ Bilateral] Pulse Rate [ From Monitor] Respiratory 24 25 H Rate Respiratory Rate [Bilateral ] Blood Pressure 138/52 131/55 O2 Sat by Pulse 100 99 Oximetry 04/30/21 04/30/21 04/30/21 04:00 04:30 04:39 Temperature Pulse Rate 102 H 95 H 97 H Pulse Rate [ Bilateral] Pulse Rate [ 96 H From Monitor] Respiratory 22 22 Rate Respiratory Rate [Bilateral ] Blood Pressure 137/40 125/49 117/50 O2 Sat by Pulse 99 98 98 Oximetry 04/30/21 04/30/21 04/30/21 05:00 05:30 06:00 Temperature Pulse Rate 101 H 96 H 94 H Pulse Rate [ Bilateral] Pulse Rate [ From Monitor] Respiratory 23 26 H 22 Rate Respiratory Rate [Bilateral ] Blood Pressure 125/49 117/50 121/52 O2 Sat by Pulse 99 98 99 Oximetry 04/30/21 04/30/21 04/30/21 06:30 07:00 07:30 Temperature Pulse Rate 94 H 94 H 96 H Pulse Rate [ Bilateral] Pulse Rate [ From Monitor] Respiratory 21 22 23 Rate Respiratory Rate [Bilateral ] Blood Pressure 121/48 129/45 134/105 O2 Sat by Pulse 100 100 100 Oximetry 04/30/21 04/30/21 04/30/21 08:00 08:15 08:18 Temperature Pulse Rate 100 H 99 H Pulse Rate [ 103 H Bilateral] Pulse Rate [ 101 H From Monitor] Respiratory 21 Rate Respiratory 18 Rate [Bilateral ] Blood Pressure 134/105 O2 Sat by Pulse 100 100 Oximetry 04/30/21 04/30/21 04/30/21 08:30 08:39 09:00 Temperature 100.2 F H Pulse Rate 102 H 95 H Pulse Rate [ Bilateral] Pulse Rate [ From Monitor] Respiratory 22 17 Rate Respiratory Rate [Bilateral ] Blood Pressure 139/107 125/53 O2 Sat by Pulse 100 100 Oximetry 04/30/21 04/30/21 04/30/21 09:30 10:00 10:28 Temperature Pulse Rate 100 H 96 H 100 H Pulse Rate [ Bilateral] Pulse Rate [ From Monitor] Respiratory 19 21 Rate Respiratory Rate [Bilateral ] Blood Pressure 133/44 128/54 127/55 O2 Sat by Pulse 99 100 Oximetry 04/30/21 04/30/21 04/30/21 10:30 11:00 11:24 Temperature Pulse Rate 106 H 98 H 96 H Pulse Rate [ Bilateral] Pulse Rate [ From Monitor] Respiratory 25 H 22 Rate Respiratory Rate [Bilateral ] Blood Pressure 128/54 129/52 O2 Sat by Pulse 99 100 Oximetry 04/30/21 04/30/21 04/30/21 12:00 12:14 13:32 Temperature 100.4 F H Pulse Rate 89 Pulse Rate [ 83 Bilateral] Pulse Rate [ From Monitor] Respiratory Rate Respiratory 20 Rate [Bilateral ] Blood Pressure 104/38 O2 Sat by Pulse 100 Oximetry - Lab 04/29/21 04:22 04/30/21 05:54 Most recent lab results ABG pH 7.547 (7.320-7.450) H 04/30/21 03:58 ABG O2 Saturation 91.6 (0-100) 04/30/21 03:58 Calcium 9.2 mg/dL (8.4-10.2) 04/30/21 05:54 Phosphorus 2.60 mg/dL (2.5-4.5) 04/22/21 08:00 Magnesium 2.10 mg/dL (1.7-2.3) 04/23/21 07:02 Urine Creatinine 24.4 mg/dL (0.1-20.0) H 04/16/21 00:12 Urine Sodium 97 mmol/L 04/16/21 00:12 Medications & Allergies - Medications Allergies/Adverse Reactions: Allergies No Known Allergies Allergy (Unverified 04/15/21 17:41) Home Medications: Home Medications Medication Instructions Recorded Confirmed Last Taken Type Betaxolol HCl [Betoptic S 0.25% 1 drop OU BID 04/16/21 04/16/21 Unknown History SUSP] Bimatoprost [Lumigan 0.01%] 1 drop OU QPM 04/16/21 04/16/21 Unknown History Brimonidine Tartrate [Brimonidine 5 ml OU BID 04/16/21 04/16/21 Unknown History Tartrate 0.2%] Furosemide [Lasix TAB] 40 mg PO QDAY 04/16/21 04/16/21 Unknown History Gabapentin [Neurontin] 300 mg PO Q8HR 04/16/21 04/16/21 Unknown History HYDROcodone/APAP 10-325 [Gilead 1 each PO Q6HR PRN 04/16/21 04/16/21 Unknown History 10/325] Hydralazine HCl 50 mg PO Q4HR 04/16/21 04/16/21 Unknown History Insulin Aspart Prot/Insuln Asp 52 units SQ HS 04/16/21 04/16/21 Unknown History [Novolog Mix 70-30 Flexpen] Metoprolol [Lopressor] 25 mg PO BID 04/16/21 04/16/21 Unknown History Pravastatin [Pravachol] 20 mg PO QHS 04/16/21 04/16/21 Unknown History Promethazine [Phenergan] 25 mg PO Q6HR 04/16/21 04/16/21 Unknown History allopurinoL [Zyloprim] 150 mg PO QDAY 04/16/21 04/16/21 Unknown History Active Medications: Generic Name Dose Route Start Last Admin Trade Name Freq PRN Reason Stop Dose Admin Acetaminophen 650 mg 04/15/21 19:11 04/27/21 12:13 Acetaminophen 325 Mg Tab PO 650 mg Q6H PRN Administration Pain MILD(1-3)/Fever >100.5/SEXTON Albuterol/Ipratropium 1 ampul 04/24/21 14:00 04/30/21 13:32 Ipratropium/Albuterol Sulfate 3 Ml Ampul.Neb IH 1 ampul Q6HRT [facility] Administration Amlodipine Besylate 10 mg 04/25/21 10:00 04/30/21 10:28 Amlodipine 10 Mg Tab PO 10 mg DAILY [facility] Administration Lipase/Protease/Amylase 1 each 04/16/21 12:52 Lipase 10,500/Protease 25,000/Amylase 43,750 (Units) Dr Simpson FEEDTUBE PRN PRN For Clogged Feeding Tube Aspirin 81 mg 04/25/21 10:00 04/30/21 10:28 Aspirin 81 Mg Tab Chew PO 81 mg QDAY [facility] Administration Bisacodyl 10 mg 04/17/21 11:01 04/28/21 21:04 Bisacodyl 10 Mg Rect Supp [place] 10 mg QDAY PRN Administration Constipation Brimonidine Tartrate 1 drops 04/17/21 22:00 04/30/21 10:30 Brimonidine 0.15% Ophth Soln OU 1 drops BID [facility] Administration Clopidogrel Bisulfate 75 mg 04/25/21 10:00 04/30/21 10:27 Clopidogrel 75 Mg Tab PO 75 mg QDAY [facility] Administration Docusate Sodium 100 mg 04/29/21 15:00 04/30/21 10:27 Docusate Sodium 100 Mg/10 Ml Oral Liqd PO 100 mg BID [facility] Administration Epinephrine 0.5 ml 04/21/21 12:56 Epinephrine Racemic 2.25% 0.5ml Nebu IH Q4HRT PRN Shortness Of Breath Famotidine 20 mg 04/17/21 10:00 04/30/21 10:28 Famotidine 20 Mg Tab PO 20 mg DAILY [facility] Administration Fentanyl 50 mcg 04/24/21 13:03 Fentanyl 100 Mcg/2 Ml Inj IV Q10MIN PRN ANALGESIA Heparin Sodium (Porcine) 5,000 unit 04/15/21 22:00 04/30/21 10:31 Heparin 5,000 Unit/1 Ml Vial SUB-Q 5,000 unit Q12HR [facility] Administration Hydralazine HCl 10 mg 04/16/21 18:00 04/24/21 05:25 Hydralazine 20 Mg/1 Ml Inj IV 10 mg Q4HR PRN Administration Hypertension Hydralazine HCl 100 mg 04/21/21 14:00 04/30/21 13:24 Hydralazine 100 Mg Tab PO Not Given TID [facility] Hydrophilic Ointment 1 applic 04/15/21 17:24 Lip Therapy Vaseline TP Q2HR PRN Dry Lips Fentanyl Citrate 2,000 mcg in 100 mls @ 4.765 mls/hr 04/24/21 14:00 04/25/21 09:15 Fentanyl Drip Premix IV 0 mcg/kg/hr TITR [facility] 0 mls/hr Titration Protocol 1 MCG/KG/HR Propofol 1,000 mg in 100 mls @ 2.859 mls/hr 04/24/21 14:00 04/25/21 09:10 Diprivan 10 Mg/Ml IV 0 mcg/kg/min TITR [facility] 0 mls/hr Titration Protocol 5 MCG/KG/MIN Cefepime HCl 2 gm in 100 mls @ 200 mls/hr 04/27/21 10:00 04/30/21 10:28 Cefepime/Ns 2 Gm/100 Ml IV 200 mls/hr Q24H [facility] Administration Protocol Metronidazole 500 mg in 100 mls @ 100 mls/hr 04/30/21 12:00 04/30/21 12:41 Flagyl 500 Mg/100 Ml IV 100 mls/hr Q8H [facility] Administration Protocol Insulin Glargine 45 units 05/01/21 08:00 Insulin Glargine 100 Units/Ml SUB-Q QAMDIAB [facility] Insulin Human Lispro 0 unit 04/16/21 15:00 04/30/21 12:41 Insulin Lispro 100 Unit/Ml SUB-Q 4 unit Q6HR [facility] Administration Protocol Latanoprost 1 drops 04/17/21 18:00 04/29/21 17:48 Latanoprost 0.005% Ophth Soln 2.5 Ml OU 1 drops QPM [facility] Administration Levothyroxine Sodium 25 mcg 04/19/21 06:00 04/30/21 05:27 Levothyroxine 25 Mcg Tab PO 25 mcg DAILY@0600 [facility] Administration Metoprolol Tartrate 25 mg 04/19/21 10:00 04/30/21 10:28 Metoprolol Tartrate 25 Mg Tab PO 25 mg BID [facility] Administration Multi-Ingred Cream/Lotion/Oil/Oint 1 applic 04/15/21 17:24 04/26/21 10:05 Mineral Oil/Petrolatum, White Ophth Oint 3.5 Gm OU 1 applic Q4HR PRN Administration Dry Eye(s) Pravastatin Sodium 20 mg 04/19/21 22:00 04/29/21 21:33 Pravastatin 20 Mg Tab PO 20 mg QHS [facility] Administration Scopolamine 1 each 04/20/21 18:00 04/29/21 09:35 Scopolamine Transdermal Patch 72 Hr TD 1 each Q3D [facility] Administration Simple Syrup 15 ml 04/16/21 12:52 Simple Syrup 15 Ml FEEDTUBE PRN PRN Hypoglycemia Simple Syrup 30 ml 04/16/21 12:52 Simple Syrup 15 Ml FEEDTUBE PRN PRN Hypoglycemia Sodium Bicarbonate 325 mg 04/16/21 12:52 Sodium Bicarbonate 325 Mg Tab FEEDTUBE PRN PRN For Clogged Feeding Tube Sodium Chloride 10 ml 04/15/21 22:00 04/30/21 10:29 Sodium Chloride 0.9% 10 Ml Flush Syringe IV 10 ml BID [facility] Administration Sodium Chloride 10 ml 04/15/21 19:11 04/24/21 05:27 Sodium Chloride 0.9% 10 Ml Flush Syringe IV 10 ml PRN PRN Administration LINE FLUSH Tamsulosin HCl 0.4 mg 04/25/21 14:00 04/30/21 10:27 Tamsulosin 0.4 Mg Cap PO 0.4 mg QDAY [facility] Administration Timolol Maleate 1 drops 04/19/21 10:00 04/30/21 10:30 Timolol 0.5% Ophth Soln 5 Ml OU 1 drops QDAY [facility] Administration
--- NOTE | 2021-04-30 14:40 | Consultation ---
History of Present Illness Consult date: 04/30/21 Chief complaint: vent - History of present illness History of present illness: 80-year-old female with a history of hypertension, diabetes, GA, breast cancer who presented to the emergency room with hypoglycemia and altered mental status on 04/15/21. Patient is currently intubated, on the ventilator and all history is obtained from the chart. Patient was initially extubated on 04/20/21 but required reintubation on 04/24/21. Patient has not been able to weaned from vent and therefore surgery consult requested for trach/peg. She is not tolerating CPAP trials and becomes tachypneic. She has been tolerating TF. Tm 100.4 Past History Past Medical History: other (See HPI) Past Surgical History: Other (Unknown) Social history: no significant social history Family history: no significant family history Medications and Allergies Allergies Allergy/AdvReac Type Severity Reaction Status Date / Time No Known Allergies Allergy Unverified 04/15/21 17:41 Home Medications Medication Instructions Recorded Confirmed Last Taken Type Betaxolol HCl [Betoptic S 0.25% 1 drop OU BID 04/16/21 04/16/21 Unknown History SUSP] Bimatoprost [Lumigan 0.01%] 1 drop OU QPM 04/16/21 04/16/21 Unknown History Brimonidine Tartrate [Brimonidine 5 ml OU BID 04/16/21 04/16/21 Unknown History Tartrate 0.2%] Furosemide [Lasix TAB] 40 mg PO QDAY 04/16/21 04/16/21 Unknown History Gabapentin [Neurontin] 300 mg PO Q8HR 04/16/21 04/16/21 Unknown History HYDROcodone/APAP 10-325 [Scott 1 each PO Q6HR PRN 04/16/21 04/16/21 Unknown H istory 10/325] Hydralazine HCl 50 mg PO Q4HR 04/16/21 04/16/21 Unknown History Insulin Aspart Prot/Insuln Asp 52 units SQ HS 04/16/21 04/16/21 Unknown History [Novolog Mix 70-30 Flexpen] Metoprolol [Lopressor] 25 mg PO BID 04/16/21 04/16/21 Unknown History Pravastatin [Pravachol] 20 mg PO QHS 04/16/21 04/16/21 Unknown History Promethazine [Phenergan] 25 mg PO Q6HR 04/16/21 04/16/21 Unknown History allopurinoL [Zyloprim] 150 mg PO QDAY 04/16/21 04/16/21 Unknown History Active Meds: Active Medications Acetaminophen (Acetaminophen 325 Mg Tab) 650 mg PO Q6H PRN PRN Reason: Pain MILD(1-3)/Fever >100.5/SEXTON Last Admin: 04/27/21 12:13 Dose: 650 mg Documented by: Albuterol/Ipratropium (Ipratropium/Albuterol Sulfate 3 Ml Ampul.Neb) 1 ampul IH Q6HRT [facility] Last Admin: 04/30/21 13:32 Dose: 1 ampul Documented by: Amlodipine Besylate (Amlodipine 10 Mg Tab) 10 mg PO DAILY [facility] Last Admin: 04/30/21 10:28 Dose: 10 mg Documented by: Lipase/Protease/Amylase (Lipase 10,500/Protease 25,000/Amylase 43,750 (Units) Dr Simpson) 1 each FEEDTUBE PRN PRN PRN Reason: For Clogged Feeding Tube Aspirin (Aspirin 81 Mg Tab Chew) 81 mg PO QDAY [facility] Last Admin: 04/30/21 10:28 Dose: 81 mg Documented by: Bisacodyl (Bisacodyl 10 Mg Rect Supp) 10 mg [place] QDAY PRN PRN Reason: Constipation Last Admin: 04/28/21 21:04 Dose: 10 mg Documented by: Brimonidine Tartrate (Brimonidine 0.15% Oph Soln) 1 drops OU BID [facility] Last Admin: 04/30/21 10:30 Dose: 1 drops Documented by: Clopidogrel Bisulfate (Clopidogrel 75 Mg Tab) 75 mg PO QDAY [facility] Last Admin: 04/30/21 10:27 Dose: 75 mg Documented by: Docusate Sodium (Docusate Sodium 100 Mg/10 Ml Oral Liqd) 100 mg PO BID [facility] Last Admin: 04/30/21 10:27 Dose: 100 mg Documented by: Epinephrine (Epinephrine Racemic 2.25% 0.5ml Nebu) 0.5 ml IH Q4HRT PRN PRN Reason: Shortness Of Breath Famotidine (Famotidine 20 Mg Tab) 20 mg PO DAILY [facility] Last Admin: 04/30/21 10:28 Dose: 20 mg Documented by: Fentanyl (Fentanyl 100 Mcg/2 Ml Inj) 50 mcg IV Q10MIN PRN PRN Reason: ANALGESIA Heparin Sodium (Porcine) (Heparin 5,000 Unit/1 Ml Vial) 5,000 unit SUB-Q Q12HR [facility] Last Admin: 04/30/21 10:31 Dose: 5,000 unit Documented by: Hydralazine HCl (Hydralazine 20 Mg/1 Ml Inj) 10 mg IV Q4HR PRN PRN Reason: Hypertension Last Admin: 04/24/21 05:25 Dose: 10 mg Documented by: Hydralazine HCl (Hydralazine 100 Mg Tab) 100 mg PO TID [facility] Last Admin: 04/30/21 13:24 Dose: Not Given Documented by: Hydrophilic Ointment (Lip Therapy Vaseline) 1 applic TP Q2HR PRN PRN Reason: Dry Lips Fentanyl Citrate (Fentanyl Drip Premix) 2,000 mcg in 100 mls @ 4.765 mls/hr IV TITR [facility]; Protocol Last Titration: 04/25/21 09:15 Dose: 0 mcg/kg/hr, 0 mls/hr Documented by: Propofol (Diprivan 10 Mg/Ml) 1,000 mg in 100 mls @ 2.859 mls/hr IV TITR [facility]; Protocol Last Titration: 04/25/21 09:10 Dose: 0 mcg/kg/min, 0 mls/hr Documented by: Cefepime HCl (Cefepime/Ns 2 Gm/100 Ml) 2 gm in 100 mls @ 200 mls/hr IV Q24H [facility]; Protocol Last Admin: 04/30/21 10:28 Dose: 200 mls/hr Documented by: Metronidazole (Flagyl 500 Mg/100 Ml) 500 mg in 100 mls @ 100 mls/hr IV Q8H [facility]; Protocol Last Admin: 04/30/21 12:41 Dose: 100 mls/hr Documented by: Insulin Glargine (Insulin Glargine 100 Units/Ml) 45 units SUB-Q QAMDIAB [facility] Insulin Human Lispro (Insulin Lispro 100 Unit/Ml) 0 unit SUB-Q Q6HR [facility]; Protocol Last Admin: 04/30/21 12:41 Dose: 4 unit Documented by: Latanoprost (Latanoprost 0.005% Ophth Soln 2.5 Ml) 1 drops OU QPM [facility] Last Admin: 04/29/21 17:48 Dose: 1 drops Documented by: Levothyroxine Sodium (Levothyroxine 25 Mcg Tab) 25 mcg PO DAILY@0600 [facility] Last Admin: 04/30/21 05:27 Dose: 25 mcg Documented by: Metoprolol Tartrate (Metoprolol Tartrate 25 Mg Tab) 25 mg PO BID [facility] Last Admin: 04/30/21 10:28 Dose: 25 mg Documented by: Multi-Ingred Cream/Lotion/Oil/Oint (Mineral Oil/Petrolatum, White Ophth Oint 3.5 Gm) 1 applic OU Q4HR PRN PRN Reason: Dry Eye(s) Last Admin: 04/26/21 10:05 Dose: 1 applic Documented by: Pravastatin Sodium (Pravastatin 20 Mg Tab) 20 mg PO QHS [facility] Last Admin: 04/29/21 21:33 Dose: 20 mg Documented by: Scopolamine (Scopolamine Transdermal Patch 72 Hr) 1 each TD Q3D [facility] Last Admin: 04/29/21 09:35 Dose: 1 each Documented by: Simple Syrup (Simple Syrup 15 Ml) 15 ml FEEDTUBE PRN PRN PRN Reason: Hypoglycemia Simple Syrup (Simple Syrup 15 Ml) 30 ml FEEDTUBE PRN PRN PRN Reason: Hypoglycemia Sodium Bicarbonate (Sodium Bicarbonate 325 Mg Tab) 325 mg FEEDTUBE PRN PRN PRN Reason: For Clogged Feeding Tube Sodium Chloride (Sodium Chloride 0.9% 10 Ml Flush Syringe) 10 ml IV BID [facility] Last Admin: 04/30/21 10:29 Dose: 10 ml Documented by: Sodium Chloride (Sodium Chloride 0.9% 10 Ml Flush Syringe) 10 ml IV PRN PRN PRN Reason: LINE FLUSH Last Admin: 04/24/21 05:27 Dose: 10 ml Documented by: Tamsulosin HCl (Tamsulosin 0.4 Mg Cap) 0.4 mg PO QDAY [facility] Last Admin: 04/30/21 10:27 Dose: 0.4 mg Documented by: Timolol Maleate (Timolol 0.5% Ophth Soln 5 Ml) 1 drops OU QDAY [facility] Last Admin: 04/30/21 10:30 Dose: 1 drops Documented by: Review of Systems ROS unobtainable: due to endotracheal tube, due to mental status Exam Vital Signs Pulse Resp Pulse Ox 58 L 21 95 04/15/21 17:06 04/15/21 17:06 04/15/21 17:06 Narrative exam: Gen.: Intubated. Does not respond to commands or open eyes ENT: Trachea midline. No lymphadenopathy. No scleral icterus or conjunctival pallor. ETT in place CV: S1, S2 present Respiratory: No audible wheezes Abdomen: Soft, mildly distended/protuberant, nontender. No rebound, rigidity, guarding Extremities: No clubbing, cyanosis, edema Results - Labs 04/29/21 04:22 04/30/21 05:54 Abnormal lab results 04/29/21 04/29/21 04/30/21 Range/Units 17:06 23:06 03:58 ABG pH 7.547 H (7.320-7.450) POC ABG pCO2 31.3 L (32.0-48.0) mmHg POC ABG pO2 58.4 L (83-108) mmHg ABG Hemoglobin 9.6 L (12.0-17.5) ABG Oxyhemoglobin 91.1 L (94-98) ABG Chloride 108.0 H (98-107) mmol/L ABG Glucose 248 H (65-95) mg/dL Carboxyhemoglobin 0.2 L (0.5-1.5) BUN (7-17) mg/dL Creatinine (0.6-1.2) mg/dL Glucose (65-100) mg/dL POC Glucose 223 H 252 H (70-105) mg/dL Arterial Blood Glucose 248 H (65-95) mg/dL 04/30/21 04/30/21 04/30/21 Range/Units 05:23 05:54 11:47 ABG pH (7.320-7.450) POC ABG pCO2 (32.0-48.0) mmHg POC ABG pO2 (83-108) mmHg ABG Hemoglobin (12.0-17.5) ABG Oxyhemoglobin (94-98) ABG Chloride (98-107) mmol/L ABG Glucose (65-95) mg/dL Carboxyhemoglobin (0.5-1.5) BUN 118 H (7-17) mg/dL Creatinine 3.3 H (0.6-1.2) mg/dL Glucose 263 H (65-100) mg/dL POC Glucose 244 H 237 H (70-105) mg/dL Arterial Blood Glucose (65-95) mg/dL Diabetes panel 04/30/21 Range/Units 05:54 Sodium 145 (137-145) mmol/L Potassium 3.8 (3.6-5.0) mmol/L Chloride 104.8 (98-107) mmol/L Carbon Dioxide 28 (22-30) mmol/L BUN 118 H (7-17) mg/dL Creatinine 3.3 H (0.6-1.2) mg/dL Glucose 263 H (65-100) mg/dL Calcium 9.2 (8.4-10.2) mg/dL Calcium panel 04/30/21 Range/Units 05:54 Calcium 9.2 (8.4-10.2) mg/dL Pituitary panel 04/30/21 Range/Units 05:54 Sodium 145 (137-145) mmol/L Potassium 3.8 (3.6-5.0) mmol/L Chloride 104.8 (98-107) mmol/L Carbon Dioxide 28 (22-30) mmol/L BUN 118 H (7-17) mg/dL Creatinine 3.3 H (0.6-1.2) mg/dL Glucose 263 H (65-100) mg/dL Calcium 9.2 (8.4-10.2) mg/dL Adrenal panel 04/30/21 Range/Units 05:54 Sodium 145 (137-145) mmol/L Potassium 3.8 (3.6-5.0) mmol/L Chloride 104.8 (98-107) mmol/L Carbon Dioxide 28 (22-30) mmol/L BUN 118 H (7-17) mg/dL Creatinine 3.3 H (0.6-1.2) mg/dL Glucose 263 H (65-100) mg/dL Calcium 9.2 (8.4-10.2) mg/dL - Imaging Chest x-ray: report reviewed, image reviewed Abdominal x-ray: report reviewed, image reviewed Assessment and Plan 80 yo F with VDRF Plan: 1. Patient is a candidate for trach/peg - Discussed with nephew/NOK Mr. Romero. All risks, benefits, alternatives to surgery discussed and questions answered. He is agreeable to proceed. Will check with OR and schedule procedure for next week. 2. continue TF as teo 3. DVT ppx 4. vent management per ICU team 5. Pt on plavix - will need to be held for at least 5 days prior to procedure D/W Dr. Chao and RENAN Constantino. Thank you for this consultation. Please call with any questions or concerns.
[2021-04-30] MEDS: ACETAMINOPHEN 325 MG TAB PO PRN ×2 (15:09→20:14)
--- NOTE | 2021-04-30 16:27 | XRay Report ---
CHEST 1 VIEW 04/30/2021 3:19 PM INDICATION / CLINICAL INFORMATION: Febrile. COMPARISON: 04/27/21. FINDINGS: SUPPORT DEVICES: The position of the endotracheal tube has not changed. The tip of the feeding tube n ow overlies the gastric body. HEART / MEDIASTINUM: Unchanged. LUNGS / PLEURA: There is patchy parenchymal disease in both lower lung zones medially, left greater t villatoro right, minimally changed. No pleural effusion. No pneumothorax. ADDITIONAL FINDINGS: No significant additional findings. IMPRESSION: Bibasilar parenchymal disease medially, greater on the left, has shown minimal change. Signer Name: Roly Rivers MD Signed: 04/30/2021 4:23 PM Workstation Name: [id number]
[2021-04-30] MEDS: LATANOPROST 0.005% OPHTH SOLN 2.5 ML OU SCH (17:31)
[2021-04-30 18:04] LABS: Bilirubin,Urine NEG (Negative); Blood,Urine MOD (Negative); Color,Urine Yellow (Yellow); Mucus,Urine FEW /HPF; Urobilinogen,Urine < 2.0 mg/dL (<2.0)
[2021-04-30] MEDS: PRAVASTATIN 20 MG TAB PO SCH (21:42)
[2021-05-01] MEDS: INSULIN LISPRO 100 UNIT/ML SUB-Q SCH ×4 (00:05→18:27)
[2021-05-01] MEDS: IPRATROPIUM/ALBUTEROL SULFATE 3 ML AMPUL.NEB IH SCH ×4 (02:18→20:13)
[2021-05-01] MEDS: metroNIDAZOLE/NS 500 MG/100 ML 500 MG/100 ML BAG IV SCH ×3 (03:39→21:44)
[2021-05-01] MEDS: LEVOTHYROXINE 25 MCG TAB PO SCH (06:10)
[2021-05-01 07:24] LABS: Hematocrit 27.3 % (30.3-42.9); Hemoglobin 8.8 gm/dl (10.1-14.3); Mean Corpuscular HGB Conc 32 % (30-34); Mean Corpuscular Volume 96 fl (79-97); Platelet Count 298 K/mm3 (140-440); Red Blood Count 2.83 M/mm3 (3.65-5.03); Red Cell Distribution Width 15.2 % (13.2-15.2)
[2021-05-01 07:35] LABS: Calcium 9.1 mg/dL (8.4-10.2)
[2021-05-01] MEDS: hydrALAZINE 100 MG TAB PO SCH ×3 (07:41→21:38)
[2021-05-01] MEDS ORDERED: INSULIN GLARGINE 100 UNITS/ML SUB-Q SCH (08:00)
--- NOTE | 2021-05-01 08:58 | Progress Note ---
Assessment and Plan 1. Acute kidney injury: Vasomotor ROJELIO. ATN likely. Renal US negative for hydro. Baseline renal function is unknown. Monitor renal function. Non-oliguric. Pt has hui catheter. BUN and Creatinine level continue to increase. Renal prognosis is guarded. Avoid nephrotoxic agents. Meds dosage based on GFR. Monitor for CATERER'S AIDE needs. 2. FEN: Hypokalemia, replete K as needed, monitor. Hyponatremia, improved. Monitor lytes and volume status. 3. Acute hypoxemic respiratory failure: Extubated, re-intubated 04/24. 4. Acute encephalopathy: Hypoglycemia. MRI brain negative. Seen by Neuro. 5. Pseudomonas UTI. 6. Hypertension. 7. DM type 2. 8. Mild rhabdomyolysis. 9. Mildly complex R renal cyst. Subjective: Patient was seen and examined at the bedside. Examination: General appearance: well-developed, appears stated age, intubated on vent HEENT: BRUCE, atraumatic Neck: trachea midline Respiratory: Coarse breath sounds heard Heart: S1S2, no murmur Abdomen: soft, obese, bowel sounds heard, NT Integumentary: no obvious rash Neurologic: stuporous Ext: no edema noted : Hui catheter Subjective Date of service: 05/01/21 Principal diagnosis: Ac. resp failure; AMS; Hypoglycemia; ROJELIO; Hyperkalemia; DM II Objective - Vital Signs Vital signs: Vital Signs - 12hr 04/30/21 04/30/21 04/30/21 21:00 21:30 21:43 Temperature Pulse Rate 83 84 84 Pulse Rate [ Bilateral] Pulse Rate [ From Monitor] Respiratory 18 16 Rate Respiratory Rate [Bilateral ] Blood Pressure 132/56 101/52 109/49 O2 Sat by Pulse 91 90 Oximetry 04/30/21 04/30/21 04/30/21 22:00 22:04 22:30 Temperature Pulse Rate 83 78 78 Pulse Rate [ Bilateral] Pulse Rate [ From Monitor] Respiratory 19 15 16 Rate Respiratory Rate [Bilateral ] Blood Pressure 109/49 117/46 117/46 O2 Sat by Pulse 97 97 98 Oximetry 04/30/21 04/30/21 05/01/21 23:00 23:30 00:00 Temperature 99.2 F Pulse Rate 86 76 83 Pulse Rate [ Bilateral] Pulse Rate [ 88 From Monitor] Respiratory 14 16 18 Rate Respiratory Rate [Bilateral ] Blood Pressure 123/53 108/51 117/50 O2 Sat by Pulse 98 98 99 Oximetry 05/01/21 05/01/21 05/01/21 00:09 00:30 01:00 Temperature Pulse Rate 78 81 79 Pulse Rate [ Bilateral] Pulse Rate [ From Monitor] Respiratory 19 20 Rate Respiratory Rate [Bilateral ] Blood Pressure 142/52 117/50 134/54 O2 Sat by Pulse 97 97 97 Oximetry 05/01/21 05/01/21 05/01/21 01:30 02:00 02:19 Temperature Pulse Rate 82 94 H Pulse Rate [ 86 Bilateral] Pulse Rate [ From Monitor] Respiratory 15 19 Rate Respiratory 26 H Rate [Bilateral ] Blood Pressure 133/53 136/52 O2 Sat by Pulse 97 95 Oximetry 05/01/21 05/01/21 05/01/21 02:30 03:00 03:30 Temperature Pulse Rate 81 78 81 Pulse Rate [ Bilateral] Pulse Rate [ From Monitor] Respiratory 14 17 27 H Rate Respiratory Rate [Bilateral ] Blood Pressure 126/52 128/51 128/51 O2 Sat by Pulse 97 99 97 Oximetry 05/01/21 05/01/21 05/01/21 03:33 04:00 04:30 Temperature 98.8 F Pulse Rate 80 72 Pulse Rate [ Bilateral] Pulse Rate [ 74 From Monitor] Respiratory 15 15 Rate Respiratory Rate [Bilateral ] Blood Pressure 122/54 122/54 O2 Sat by Pulse 95 97 Oximetry 05/01/21 05/01/21 05/01/21 04:45 05:00 05:30 Temperature Pulse Rate 75 82 75 Pulse Rate [ Bilateral] Pulse Rate [ From Monitor] Respiratory 11 L 20 Rate Respiratory Rate [Bilateral ] Blood Pressure 119/51 119/51 129/56 O2 Sat by Pulse 98 99 Oximetry 05/01/21 05/01/21 05/01/21 06:00 06:30 07:00 Temperature Pulse Rate 76 74 76 Pulse Rate [ Bilateral] Pulse Rate [ From Monitor] Respiratory 16 12 18 Rate Respiratory Rate [Bilateral ] Blood Pressure 135/54 132/54 117/49 O2 Sat by Pulse 98 92 97 Oximetry 05/01/21 05/01/21 05/01/21 07:30 08:00 08:30 Temperature 97.6 F Pulse Rate 75 73 79 Pulse Rate [ Bilateral] Pulse Rate [ 76 From Monitor] Respiratory 16 17 27 H Rate Respiratory Rate [Bilateral ] Blood Pressure 119/60 129/56 116/59 O2 Sat by Pulse 97 99 97 Oximetry - Lab 05/01/21 07:11 05/01/21 07:11 Most recent lab results ABG pH 7.466 (7.320-7.450) H 05/01/21 04:02 ABG O2 Saturation 91.9 (0-100) 05/01/21 04:02 Calcium 9.1 mg/dL (8.4-10.2) 05/01/21 07:11 Phosphorus 2.60 mg/dL (2.5-4.5) 04/22/21 08:00 Magnesium 2.10 mg/dL (1.7-2.3) 04/23/21 07:02 Urine Creatinine 24.4 mg/dL (0.1-20.0) H 04/16/21 00:12 Urine Sodium 97 mmol/L 04/16/21 00:12 Medications & Allergies - Medications Allergies/Adverse Reactions: Allergies No Known Allergies Allergy (Unverified 04/15/21 17:41) Home Medications: Home Medications Medication Instructions Recorded Confirmed Last Taken Type Betaxolol HCl [Betoptic S 0.25% 1 drop OU BID 04/16/21 04/16/21 Unknown History SUSP] Bimatoprost [Lumigan 0.01%] 1 drop OU QPM 04/16/21 04/16/21 Unknown History Brimonidine Tartrate [Brimonidine 5 ml OU BID 04/16/21 04/16/21 Unknown History Tartrate 0.2%] Furosemide [Lasix TAB] 40 mg PO QDAY 04/16/21 04/16/21 Unknown History Gabapentin [Neurontin] 300 mg PO Q8HR 04/16/21 04/16/21 Unknown History HYDROcodone/APAP 10-325 [[place] 1 each PO Q6HR PRN 04/16/21 04/16/21 Unknown History 10/325] Hydralazine HCl 50 mg PO Q4HR 04/16/21 04/16/21 Unknown History Insulin Aspart Prot/Insuln Asp 52 units SQ HS 04/16/21 04/16/21 Unknown History [Novolog Mix 70-30 Flexpen] Metoprolol [Lopressor] 25 mg PO BID 04/16/21 04/16/21 Unknown History Pravastatin [Pravachol] 20 mg PO QHS 04/16/21 04/16/21 Unknown History Promethazine [Phenergan] 25 mg PO Q6HR 04/16/21 04/16/21 Unknown History allopurinoL [Zyloprim] 150 mg PO QDAY 04/16/21 04/16/21 Unknown History Active Medications: Generic Name Dose Route Start Last Admin Trade Name Freq PRN Reason Stop Dose Admin Acetaminophen 650 mg 04/15/21 19:11 04/30/21 20:14 Acetaminophen 325 Mg Tab PO 650 mg Q6H PRN Administration Pain MILD(1-3)/Fever >100.5/SEXTON Albuterol/Ipratropium 1 ampul 04/24/21 14:00 05/01/21 02:18 Ipratropium/Albuterol Sulfate 3 Ml Ampul.Neb IH 1 ampul Q6HRT WOLFGANG Administration Amlodipine Besylate 10 mg 04/25/21 10:00 04/30/21 10:28 Amlodipine 10 Mg Tab PO 10 mg DAILY WOLFGANG Administration Lipase/Protease/Amylase 1 each 04/16/21 12:52 Lipase 10,500/Protease 25,000/Amylase 43,750 (Units) Dr Simpson FEEDTUBE PRN PRN For Clogged Feeding Tube Aspirin 81 mg 04/25/21 10:00 04/30/21 10:28 Aspirin 81 Mg Tab Chew PO 81 mg QDAY WOLFGANG Administration Bisacodyl 10 mg 04/17/21 11:01 04/28/21 21:04 Bisacodyl 10 Mg Rect Supp TN 10 mg QDAY PRN Administration Constipation Brimonidine Tartrate 1 drops 04/17/21 22:00 04/30/21 21:45 Brimonidine 0.15% Ophth Soln OU 1 drops BID WOLFGANG Administration Docusate Sodium 100 mg 04/29/21 15:00 04/30/21 21:42 Docusate Sodium 100 Mg/10 Ml Oral Liqd PO 100 mg BID WOLFGANG Administration Epinephrine 0.5 ml 04/21/21 12:56 Epinephrine Racemic 2.25% 0.5ml Nebu IH Q4HRT PRN Shortness Of Breath Famotidine 20 mg 04/17/21 10:00 04/30/21 10:28 Famotidine 20 Mg Tab PO 20 mg DAILY WOLFGANG Administration Fentanyl 50 mcg 04/24/21 13:03 Fentanyl 100 Mcg/2 Ml Inj IV Q10MIN PRN ANALGESIA Heparin Sodium (Porcine) 5,000 unit 04/15/21 22:00 04/30/21 21:43 Heparin 5,000 Unit/1 Ml Vial SUB-Q 5,000 unit Q12HR WOLFGANG Administration Hydralazine HCl 10 mg 04/16/21 18:00 04/24/21 05:25 Hydralazine 20 Mg/1 Ml Inj IV 10 mg Q4HR PRN Administration Hypertension Hydralazine HCl 100 mg 04/21/21 14:00 05/01/21 07:41 Hydralazine 100 Mg Tab PO 100 mg TID WOLFGANG Administration Hydrophilic Ointment 1 applic 04/15/21 17:24 Lip Therapy Vaseline TP Q2HR PRN Dry Lips Fentanyl Citrate 2,000 mcg in 100 mls @ 4.765 mls/hr 04/24/21 14:00 04/25/21 09:15 Fentanyl Drip Premix IV 0 mcg/kg/hr TITR WOLFGANG 0 mls/hr Titration Protocol 1 MCG/KG/HR Propofol 1,000 mg in 100 mls @ 2.859 mls/hr 04/24/21 14:00 04/25/21 09:10 Diprivan 10 Mg/Ml IV 0 mcg/kg/min TITR WOLFGANG 0 mls/hr Titration Protocol 5 MCG/KG/MIN Cefepime HCl 2 gm in 100 mls @ 200 mls/hr 04/27/21 10:00 04/30/21 10:28 Cefepime/Ns 2 Gm/100 Ml IV 200 mls/hr Q24H [facility] Administration Protocol Metronidazole 500 mg in 100 mls @ 100 mls/hr 04/30/21 12:00 05/01/21 03:39 Flagyl 500 Mg/100 Ml IV 100 mls/hr Q8H [facility] Administration Protocol Insulin Glargine 52 units 05/01/21 08:12 Insulin Glargine 100 Units/Ml SUB-Q QAMDIAB [facility] Insulin Glargine 7 units 05/01/21 08:12 Insulin Glargine 100 Units/Ml SUB-Q 05/01/21 08:13 ONCE ONE Insulin Human Lispro 0 unit 04/16/21 15:00 05/01/21 06:10 Insulin Lispro 100 Unit/Ml SUB-Q 3 unit Q6HR [facility] Administration Protocol Latanoprost 1 drops 04/17/21 18:00 04/30/21 17:31 Latanoprost 0.005% Ophth Soln 2.5 Ml OU 1 drops QPM WOLFGANG Administration Levothyroxine Sodium 25 mcg 04/19/21 06:00 05/01/21 06:10 Levothyroxine 25 Mcg Tab PO 25 mcg DAILY@0600 WOLFGANG Administration Metoprolol Tartrate 25 mg 04/19/21 10:00 04/30/21 21:43 Metoprolol Tartrate 25 Mg Tab PO 25 mg BID WOLFGANG Administration Multi-Ingred Cream/Lotion/Oil/Oint 1 applic 04/15/21 17:24 04/26/21 10:05 Mineral Oil/Petrolatum, White Ophth Oint 3.5 Gm OU 1 applic Q4HR PRN Administration Dry Eye(s) Pravastatin Sodium 20 mg 04/19/21 22:00 04/30/21 21:42 Pravastatin 20 Mg Tab PO 20 mg QHS WOLFGANG Administration Scopolamine 1 each 04/20/21 18:00 04/29/21 09:35 Scopolamine Transdermal Patch 72 Hr TD 1 each Q3D WOLFGANG Administration Simple Syrup 15 ml 04/16/21 12:52 Simple Syrup 15 Ml FEEDTUBE PRN PRN Hypoglycemia Simple Syrup 30 ml 04/16/21 12:52 Simple Syrup 15 Ml FEEDTUBE PRN PRN Hypoglycemia Sodium Bicarbonate 325 mg 04/16/21 12:52 Sodium Bicarbonate 325 Mg Tab FEEDTUBE PRN PRN For Clogged Feeding Tube Sodium Chloride 10 ml 04/15/21 22:00 04/30/21 21:45 Sodium Chloride 0.9% 10 Ml Flush Syringe IV 10 ml BID WOLFGANG Administration Sodium Chloride 10 ml 04/15/21 19:11 04/24/21 05:27 Sodium Chloride 0.9% 10 Ml Flush Syringe IV 10 ml PRN PRN Administration LINE FLUSH Tamsulosin HCl 0.4 mg 04/25/21 14:00 04/30/21 10:27 Tamsulosin 0.4 Mg Cap PO 0.4 mg QDAY WOLFGANG Administration Timolol Maleate 1 drops 04/19/21 10:00 04/30/21 10:30 Timolol 0.5% Ophth Soln 5 Ml OU 1 drops QDAY WOLFGANG Administration
[2021-05-01] MEDS: amLODIPine 10 MG TAB PO SCH (09:09)
[2021-05-01] MEDS: METOPROLOL TARTRATE 25 MG TAB PO SCH ×2 (09:09→21:38)
[2021-05-01] MEDS: FAMOTIDINE 20 MG TAB PO SCH (09:09)
[2021-05-01] MEDS: HEPARIN 5,000 UNIT/1 ML VIAL SUB-Q SCH ×2 (09:09→21:38)
[2021-05-01] MEDS: CEFEPIME/NS 2 GM/100 ML 2 GM/100 ML BAG IV SCH (09:10)
[2021-05-01] MEDS: ASPIRIN 81 MG TAB CHEW PO SCH (09:10)
[2021-05-01] MEDS: DOCUSATE SODIUM 100 MG/10 ML ORAL LIQD PO SCH ×2 (09:10→21:50)
[2021-05-01] MEDS: TIMOLOL 0.5% OPHTH SOLN 5 ML OU SCH (09:10)
[2021-05-01] MEDS: TAMSULOSIN 0.4 MG CAP PO SCH (09:10)
[2021-05-01] MEDS ORDERED: INSULIN GLARGINE 100 UNITS/ML SUB-Q ONE (10:00)
[2021-05-01] MEDS: BRIMONIDINE 0.15% OPHTH SOLN OU SCH ×2 (11:47→21:42)
[2021-05-01 12:14] LABS: Band Neutrophils # (Manual) 0.9 K/mm3; Platelet Estimate Consistent w Auto; RBC Morphology Normal; Total Cells Counted 100
--- NOTE | 2021-05-01 12:32 | Progress Note ---
Assessment and Plan Cultures: 04/15/2021 blood culture: No growth 04/15/2021 sputum culture: Contaminated 04/16/2021 urine culture: Mixed nilesh 04/16/2021 tracheal aspirate culture: Usual respiratory nilesh 04/18/2021 urine culture: 10K-100 K Pseudomonas aeruginosa 04/18/2021 blood culture: No growth 04/24/2021 resp culture: usual resp nilesh 04/26/2021 blood culture: No growth COVID-19 PCR: Negative A/P: 80-year-old female with diabetes mellitus, coronary artery disease, hypertension, breast cancer status post mastectomy, TIA was admitted to the hospital on 04/16/2021 with altered mental status and hypoglycemia: #Sepsis: Etiology unclear. Prolonged mechanical ventilation and ICU stay. Ruled out bacteremia, UTI. Chest x-ray from today does not reveal any pneumonia. ? some leucocytosis related to steroid use from 04/21/2021 to 04/24/2021. #Acute respiratory failure: on the vent. #Acute encephalopathy: Metabolic likely. #UTI with Pseudomonas: Recently treated with IV cefepime. #ROJELIO: Renally dose antibiotics. Recs: -Afebrile, WBC downtrending, no need for imaging at this time. Continue IV Cefepime, Flagyl Cash Parks MD, FACP [facility] ([facility] O: [phone] F: [phone] Subjective Date of service: 05/01/21 Principal diagnosis: Ac. resp failure; AMS; Hypoglycemia; ROJELIO; Hyperkalemia; DM II Interval history: Remains on the vent. No fever. Objective - Exam Narrative Exam: Physical Exam: Constitutional: sedated, intubated, on the vent Head, Ears, Nose: Normocephalic, atraumatic. External ears, nose normal Eyes: Conjunctivae/corneas clear. No icterus. No ptosis. Neck: intubated Oral: intubated Cardiovascular: S1, S2 + Respiratory: AE fair bilaterally and equal GI: Soft, bowel sounds + Musculoskeletal: No pedal edema, no cyanosis. Skin: No rash or abscess Hem/Lymphatic: No palpable cervical or supraclavicular nodes. No lymphangitis Psych: no agitation Neurological: sedated, intubated, on the vent, exam limited - Constitutional Vitals: Vital Signs Temp Pulse Resp BP Pulse Ox 97.9 F 67 21 130/55 99 05/01/21 12:00 05/01/21 12:00 05/01/21 12:00 05/01/21 12:00 05/01/21 12:00 Temperature -Last 24 Hours Temperature 97.9 F Temperature 97.6 F Temperature 98.8 F Temperature 99.2 F Temperature 100.6 F Temperature 101.8 F Temperature 101.8 F - Labs CBC & Chem 7: 05/01/21 07:11 05/01/21 07:11 Labs: Abnormal lab results 04/30/21 04/30/21 04/30/21 Range/Units 11:47 17:26 17:45 WBC (4.5-11.0) K/mm3 RBC (3.65-5.03) M/mm3 Hgb (10.1-14.3) gm/dl Hct (30.3-42.9) % Seg Neuts % (Manual) (40.0-70.0) % Lymphocytes % (Manual) (13.4-35.0) % Seg Neutrophils # Man (1.8-7.7) K/mm3 Lymphocytes # (Manual) (1.2-5.4) K/mm3 ABG pH (7.320-7.450) POC ABG pO2 (83-108) mmHg ABG Hemoglobin (12.0-17.5) ABG Oxyhemoglobin (94-98) ABG Chloride (98-107) mmol/L ABG Glucose (65-95) mg/dL Sodium (137-145) mmol/L Chloride (98-107) mmol/L BUN (7-17) mg/dL Creatinine (0.6-1.2) mg/dL Glucose (65-100) mg/dL POC Glucose 237 H 193 H (70-105) mg/dL Arterial Blood Glucose (65-95) mg/dL Urine WBC (Auto) 48.0 H (0.0-6.0) /HPF 04/30/21 05/01/21 05/01/21 Range/Units 23:51 04:02 04:57 WBC (4.5-11.0) K/mm3 RBC (3.65-5.03) M/mm3 Hgb (10.1-14.3) gm/dl Hct (30.3-42.9) % Seg Neuts % (Manual) (40.0-70.0) % Lymphocytes % (Manual) (13.4-35.0) % Seg Neutrophils # Man (1.8-7.7) K/mm3 Lymphocytes # (Manual) (1.2-5.4) K/mm3 ABG pH 7.466 H (7.320-7.450) POC ABG pO2 61.4 L (83-108) mmHg ABG Hemoglobin 9.0 L (12.0-17.5) ABG Oxyhemoglobin 91.1 L (94-98) ABG Chloride 110.0 H (98-107) mmol/L ABG Glucose 245 H (65-95) mg/dL Sodium (137-145) mmol/L Chloride (98-107) mmol/L BUN (7-17) mg/dL Creatinine (0.6-1.2) mg/dL Glucose (65-100) mg/dL POC Glucose 197 H 193 H (70-105) mg/dL Arterial Blood Glucose 245 H (65-95) mg/dL Urine WBC (Auto) (0.0-6.0) /HPF 05/01/21 05/01/21 05/01/21 Range/Units 07:11 07:11 07:45 WBC 12.3 H (4.5-11.0) K/mm3 RBC 2.83 L (3.65-5.03) M/mm3 Hgb 8.8 L (10.1-14.3) gm/dl Hct 27.3 L (30.3-42.9) % Seg Neuts % (Manual) 80.0 H (40.0-70.0) % Lymphocytes % (Manual) 5.0 L (13.4-35.0) % Seg Neutrophils # Man 9.8 H (1.8-7.7) K/mm3 Lymphocytes # (Manual) 0.6 L (1.2-5.4) K/mm3 ABG pH (7.320-7.450) POC ABG pO2 (83-108) mmHg ABG Hemoglobin (12.0-17.5) ABG Oxyhemoglobin (94-98) ABG Chloride (98-107) mmol/L ABG Glucose (65-95) mg/dL Sodium 146 H (137-145) mmol/L Chloride 108.4 H (98-107) mmol/L BUN 122 H (7-17) mg/dL Creatinine 3.4 H (0.6-1.2) mg/dL Glucose 235 H (65-100) mg/dL POC Glucose 212 H (70-105) mg/dL Arterial Blood Glucose (65-95) mg/dL Urine WBC (Auto) (0.0-6.0) /HPF
--- NOTE | 2021-05-01 12:32 | Progress Note ---
Assessment and Plan Acute respiratory failure, on mechanical ventilatory support. Acute toxic metabolic encephalopathy Hypoglycemia ROJELIO Hyperkalemia Rhabdomyolysis Possible seizure activity DM II HTN CAD Obesity H/O breast cancer H/O TIA Leukocytosis Elevated serum TSH, possible hypothyroidism - care plan discussed with POA at bedside - increased free water to 150 ml's q4h - EEG negative for epileptiform activity - awaiting tracheostomy - pull hui catheter if OK with trials manager - continue Flomax re: retention - continue care as below otherwise; - continue to wean supplemental oxygen for target O2 sat's > 90% acutely - VAP bundle addressed - continue lung protective strategies - continue bronchodilators with pulmonary hygiene per RT - continue Daily SAT and SBT assessment as tolerated - wean per pulmonary driven protocols otherwise - continue accuchecks with glycemic control per SSI (While critically ill target blood glucose of 140-180 mg/dL; avoid hypoglycemia) - sedation prn for target RASS 0 to -1 - avoid nephrotoxins, renally dose all medications - continue to avoid benzodiazepine's, reduce the possibility of delirium - follow clinically off AB's; trend fevers / WBC - prn analgesia per CPOT score - Maintenance of sleep-wake cycle, avoid delirium - continue enteral nutritional support at goal rate as tolerated - G.I. & VTE prophylaxis - PT/OT/ROM exercises - continue mobility protocols for pressure ulcer prophylaxis - Monitor hemodynamics closely - continue other care per attending / other consultants - discharge planning ongoing concurrently .... Re-evaluate in am & prn CONDITION: CRITICAL PROGNOSIS: GUARDED CODE STATUS: FULL CODE The high probability of a clinically significant, sudden or life-threatening deterioration of the [respiratory, cardiovascular, GI & neurologic] system(s) required my full and direct attention, intervention and personal management. The aggregate critical care time was [32] minutes without overlap. Time includes spent on; [x] Data Review and interpretation [x] Patient assessment and monitoring of vital signs [x] Documentation [x] Medication orders and management Subjective Date of service: 05/01/21 Principal diagnosis: Ac. resp failure; AMS; Hypoglycemia; ROJELIO; Hyperkalemia; DM II Interval history: Patient is seen today for: Acute respiratory failure; AMS; Hypoglycemia; ROJELIO; Hyperkalemia; DM II; H/O breast cancer; Elevated serum TSH, possible hypothyroidism Seen and examined at bedside; 24hour events reviewed; nursing and respiratory care staff consulted; no adverse overnight events reported to me; resting pe acefully in bed; remains on MVS; AMS is persistent; tracheostomy on hold re: Plavix (5 days); no new issues otherwise Objective Vital Signs - 12hr 05/01/21 05/01/21 05/01/21 01:00 01:30 02:00 Temperature Pulse Rate 79 82 94 H Pulse Rate [ Bilateral] Pulse Rate [ From Monitor] Respiratory 20 15 19 Rate Respiratory Rate [Bilateral ] Blood Pressure 134/54 133/53 136/52 O2 Sat by Pulse 97 97 95 Oximetry 05/01/21 05/01/21 05/01/21 02:19 02:30 03:00 Temperature Pulse Rate 81 78 Pulse Rate [ 86 Bilateral] Pulse Rate [ From Monitor] Respiratory 14 17 Rate Respiratory 26 H Rate [Bilateral ] Blood Pressure 126/52 128/51 O2 Sat by Pulse 97 99 Oximetry 05/01/21 05/01/21 05/01/21 03:30 03:33 04:00 Temperature 98.8 F Pulse Rate 81 80 Pulse Rate [ Bilateral] Pulse Rate [ 74 From Monitor] Respiratory 27 H 15 Rate Respiratory Rate [Bilateral ] Blood Pressure 128/51 122/54 O2 Sat by Pulse 97 95 Oximetry 05/01/21 05/01/21 05/01/21 04:30 04:45 05:00 Temperature Pulse Rate 72 75 82 Pulse Rate [ Bilateral] Pulse Rate [ From Monitor] Respiratory 15 11 L Rate Respiratory Rate [Bilateral ] Blood Pressure 122/54 119/51 119/51 O2 Sat by Pulse 97 98 Oximetry 05/01/21 05/01/21 05/01/21 05:30 06:00 06:30 Temperature Pulse Rate 75 76 74 Pulse Rate [ Bilateral] Pulse Rate [ From Monitor] Respiratory 20 16 12 Rate Respiratory Rate [Bilateral ] Blood Pressure 129/56 135/54 132/54 O2 Sat by Pulse 99 98 92 Oximetry 05/01/21 05/01/21 05/01/21 07:00 07:30 08:00 Temperature 97.6 F Pulse Rate 76 75 73 Pulse Rate [ Bilateral] Pulse Rate [ 76 From Monitor] Respiratory 18 16 17 Rate Respiratory Rate [Bilateral ] Blood Pressure 117/49 119/60 129/56 O2 Sat by Pulse 97 97 99 Oximetry 05/01/21 05/01/21 05/01/21 08:30 09:00 09:04 Temperature Pulse Rate 79 85 Pulse Rate [ 78 Bilateral] Pulse Rate [ From Monitor] Respiratory 27 H 21 Rate Respiratory 20 Rate [Bilateral ] Blood Pressure 116/59 129/56 O2 Sat by Pulse 97 97 Oximetry 05/01/21 05/01/21 05/01/21 09:09 09:30 10:00 Temperature Pulse Rate 90 79 71 Pulse Rate [ Bilateral] Pulse Rate [ From Monitor] Respiratory 19 26 H Rate Respiratory Rate [Bilateral ] Blood Pressure 122/56 122/56 120/59 O2 Sat by Pulse 98 97 Oximetry 05/01/21 05/01/21 05/01/21 10:30 11:00 11:19 Temperature Pulse Rate 71 71 88 Pulse Rate [ Bilateral] Pulse Rate [ From Monitor] Respiratory 20 16 Rate Respiratory Rate [Bilateral ] Blood Pressure 119/51 111/52 102/53 O2 Sat by Pulse 96 96 97 Oximetry 05/01/21 05/01/21 11:30 12:00 Temperature 97.9 F Pulse Rate 70 66 Pulse Rate [ Bilateral] Pulse Rate [ 67 From Monitor] Respiratory 29 H 21 Rate Respiratory Rate [Bilateral ] Blood Pressure 102/53 130/55 O2 Sat by Pulse 100 99 Oximetry Constitutional: no acute distress, other (elderly obese female with mildly increased respiratory effort at rest on MVS) Eyes: non-icteric (Patient obese and having mild respiratory distress at rest) ENT: oropharynx moist, other (ETT 24 cm RICARDO) Neck: supple, no lymphadenopathy, no JVD, other (large circumference) Effort: mildly labored Ascultation: Bilateral: diminished breath sounds, rhonchi Percussion: Bilateral: not dull Cardiovascular: regular rate and rhythm, other (S1,S2) Gastrointestinal: normoactive bowel sounds, hypoactive bowel sounds, non-tender, non-distended (protuberant), other (firm) Integumentary: normal Extremities: no cyanosis, no edema, pulses normal, no ischemia or petechiae Neurologic: non-focal exam (tracks voice), pupils equal and round, motor strength normal and Psychiatric: other (unable to assess re: AMS) CBC and BMP: 05/01/21 07:11 05/01/21 07:11 ABG, PT/INR, D-dimer: ABG ABG pH 7.466 (7.320-7.450) H 05/01/21 04:02 POC ABG pCO2 35.9 mmHg (32.0-48.0) 05/01/21 04:02 POC ABG pO2 61.4 mmHg (83-108) L 05/01/21 04:02 POC ABG HCO3 25.3 05/01/21 04:02 ABG O2 Saturation 91.9 (0-100) 05/01/21 04:02 PT/INR, D-dimer PT 12.2 Sec. (12.2-14.9) 04/15/21 17:20 INR 0.91 (0.87-1.13) 04/15/21 17:20 Abnormal lab findings: Abnormal Labs 04/15/21 04/15/21 04/15/21 17:00 17:20 17:20 WBC 11.2 H RBC Hgb Hct 43.0 H MCV RDW 15.3 H Plt Count Lymph % (Auto) 12.8 L Seg Neutrophils % 82.4 H Seg Neuts % (Manual) Lymphocytes % (Manual) Monocytes % (Manual) Seg Neutrophils # 9.3 H Seg Neutrophils # Man Lymphocytes # (Manual) Monocytes # (Manual) ABG pH POC ABG pCO2 POC ABG pO2 ABG Hemoglobin ABG Oxyhemoglobin ABG Sodium ABG Potassium ABG Chloride ABG Glucose Carboxyhemoglobin Sodium 129 L Potassium 7.1 H* Chloride 91.9 L BUN 35 H Creatinine 2.8 H Glucose POC Glucose 191 H Calcium Phosphorus Magnesium AST 69 H ALT Total Creatine Kinase CK-MB (CK-2) Troponin T Total Protein Albumin HDL Cholesterol TSH Free T3 Index Arterial Blood Glucose Arterial Blood Ionized Calcium Urine pH Urine WBC (Auto) Urine Creatinine Acetaminophen 04/15/21 04/15/21 04/15/21 17:20 17:20 17:20 WBC RBC Hgb Hct MCV RDW Plt Count Lymph % (Auto) Seg Neutrophils % Seg Neuts % (Manual) Lymphocytes % (Manual) Monocytes % (Manual) Seg Neutrophils # Seg Neutrophils # Man Lymphocytes # (Manual) Monocytes # (Manual) ABG pH POC ABG pCO2 POC ABG pO2 ABG Hemoglobin ABG Oxyhemoglobin ABG Sodium ABG Potassium ABG Chloride ABG Glucose Carboxyhemoglobin Sodium Potassium Chloride BUN Creatinine Glucose POC Glucose Calcium Phosphorus Magnesium AST ALT Total Creatine Kinase 1000 H CK-MB (CK-2) Troponin T Total Protein Albumin HDL Cholesterol TSH 14.190 H Free T3 Index Arterial Blood Glucose Arterial Blood Ionized Calcium Urine pH Urine WBC (Auto) Urine Creatinine Acetaminophen 5.0 L 04/15/21 04/15/21 04/15/21 20:49 21:23 23:15 WBC RBC Hgb Hct MCV RDW Plt Count Lymph % (Auto) Seg Neutrophils % Seg Neuts % (Manual) Lymphocytes % (Manual) Monocytes % (Manual) Seg Neutrophils # Seg Neutrophils # Man Lymphocytes # (Manual) Monocytes # (Manual) ABG pH 7.557 H POC ABG pCO2 30.0 L POC ABG pO2 493.3 H ABG Hemoglobin ABG Oxyhemoglobin 99.0 H ABG Sodium 131.5 L ABG Potassium 4.7 H ABG Chloride 94.0 L ABG Glucose 218 H Carboxyhemoglobin Sodium Potassium Chloride BUN Creatinine Glucose POC Glucose 173 H 207 H Calcium Phosphorus Magnesium AST ALT Total Creatine Kinase CK-MB (CK-2) Troponin T Total Protein Albumin HDL Cholesterol TSH Free T3 Index Arterial Blood Glucose 218 H Arterial Blood Ionized Calcium 5.4 H Urine pH Urine WBC (Auto) Urine Creatinine Acetaminophen 04/16/21 04/16/21 04/16/21 00:09 00:12 00:19 WBC RBC Hgb Hct MCV RDW Plt Count Lymph % (Auto) Seg Neutrophils % Seg Neuts % (Manual) Lymphocytes % (Manual) Monocytes % (Manual) Seg Neutrophils # Seg Neutrophils # Man Lymphocytes # (Manual) Monocytes # (Manual) ABG pH POC ABG pCO2 POC ABG pO2 ABG Hemoglobin ABG Oxyhemoglobin ABG Sodium ABG Potassium ABG Chloride ABG Glucose Carboxyhemoglobin Sodium Potassium 6.7 H* Chloride BUN Creatinine Glucose POC Glucose Calcium Phosphorus Magnesium AST ALT Total Creatine Kinase CK-MB (CK-2) Troponin T Total Protein Albumin HDL Cholesterol TSH Free T3 Index Arterial Blood Glucose Arterial Blood Ionized Calcium Urine pH 9.0 H Urine WBC (Auto) Urine Creatinine 24.4 H Acetaminophen 04/16/21 04/16/21 04/16/21 03:43 03:55 05:02 WBC 21.2 H RBC Hgb Hct 43.4 H MCV 98 H RDW Plt Count Lymph % (Auto) Seg Neutrophils % Seg Neuts % (Manual) 84.0 H Lymphocytes % (Manual) 2.0 L Monocytes % (Manual) 10.0 H Seg Neutrophils # Seg Neutrophils # Man 17.8 H Lymphocytes # (Manual) 0.4 L Monocytes # (Manual) 2.1 H ABG pH 7.461 H POC ABG pCO2 POC ABG pO2 ABG Hemoglobin ABG Oxyhemoglobin ABG Sodium 126.8 L ABG Potassium 5.4 H ABG Chloride 90.0 L ABG Glucose 325 H Carboxyhemoglobin Sodium Potassium Chloride BUN Creatinine Glucose POC Glucose 391 H Calcium Phosphorus Magnesium AST ALT Total Creatine Kinase CK-MB (CK-2) Troponin T Total Protein Albumin HDL Cholesterol TSH Free T3 Index Arterial Blood Glucose 325 H Arterial Blood Ionized Calcium Urine pH Urine WBC (Auto) Urine Creatinine Acetaminophen 04/16/21 04/16/21 04/16/21 05:02 11:34 16:09 WBC RBC Hgb Hct MCV RDW Plt Count Lymph % (Auto) Seg Neutrophils % Seg Neuts % (Manual) Lymphocytes % (Manual) Monocytes % (Manual) Seg Neutrophils # Seg Neutrophils # Man Lymphocytes # (Manual) Monocytes # (Manual) ABG pH POC ABG pCO2 POC ABG pO2 ABG Hemoglobin ABG Oxyhemoglobin ABG Sodium ABG Potassium ABG Chloride ABG Glucose Carboxyhemoglobin Sodium 131 L Potassium 5.9 H Chloride 88.7 L BUN 34 H Creatinine 2.9 H Glucose 249 H POC Glucose 382 H 300 H Calcium 10.4 H Phosphorus Magnesium AST 65 H ALT Total Creatine Kinase CK-MB (CK-2) Troponin T Total Protein Albumin 3.8 L HDL Cholesterol TSH Free T3 Index Arterial Blood Glucose Arterial Blood Ionized Calcium Urine pH Urine WBC (Auto) Urine Creatinine Acetaminophen 04/16/21 04/16/21 04/16/21 18:15 19:01 19:01 WBC RBC Hgb Hct MCV RDW Plt Count Lymph % (Auto) Seg Neutrophils % Seg Neuts % (Manual) Lymphocytes % (Manual) Monocytes % (Manual) Seg Neutrophils # Seg Neutrophils # Man Lymphocytes # (Manual) Monocytes # (Manual) ABG pH POC ABG pCO2 POC ABG pO2 ABG Hemoglobin ABG Oxyhemoglobin ABG Sodium ABG Potassium ABG Chloride ABG Glucose Carboxyhemoglobin Sodium 125 L Potassium 5.5 H Chloride 84.5 L BUN 37 H Creatinine 3.5 H Glucose 236 H POC Glucose 287 H Calcium Phosphorus Magnesium AST ALT Total Creatine Kinase CK-MB (CK-2) Troponin T Total Protein Albumin HDL Cholesterol TSH Free T3 Index 1.1 L Arterial Blood Glucose Arterial Blood Ionized Calcium Urine pH Urine WBC (Auto) Urine Creatinine Acetaminophen 04/16/21 04/16/21 04/17/21 19:01 23:48 03:09 WBC RBC Hgb Hct MCV RDW Plt Count Lymph % (Auto) Seg Neutrophils % Seg Neuts % (Manual) Lymphocytes % (Manual) Monocytes % (Manual) Seg Neutrophils # Seg Neutrophils # Man Lymphocytes # (Manual) Monocytes # (Manual) ABG pH 7.518 H POC ABG pCO2 POC ABG pO2 ABG Hemoglobin ABG Oxyhemoglobin ABG Sodium 126.4 L ABG Potassium ABG Chloride 89.0 L ABG Glucose 200 H Carboxyhemoglobin Sodium Potassium 5.6 H Chloride BUN Creatinine Glucose POC Glucose 243 H Calcium Phosphorus Magnesium AST ALT Total Creatine Kinase CK-MB (CK-2) Troponin T Total Protein Albumin HDL Cholesterol TSH Free T3 Index Arterial Blood Glucose 200 H Arterial Blood Ionized Calcium 4.4 L Urine pH Urine WBC (Auto) Urine Creatinine Acetaminophen 04/17/21 04/17/21 04/17/21 05:04 06:14 11:55 WBC RBC Hgb Hct MCV RDW Plt Count Lymph % (Auto) Seg Neutrophils % Seg Neuts % (Manual) Lymphocytes % (Manual) Monocytes % (Manual) Seg Neutrophils # Seg Neutrophils # Man Lymphocytes # (Manual) Monocytes # (Manual) ABG pH POC ABG pCO2 POC ABG pO2 ABG Hemoglobin ABG Oxyhemoglobin ABG Sodium ABG Potassium ABG Chloride ABG Glucose Carboxyhemoglobin Sodium 129 L Potassium Chloride 86.1 L BUN 39 H Creatinine 3.5 H Glucose 202 H POC Glucose 208 H 276 H Calcium Phosphorus Magnesium AST ALT Total Creatine Kinase 750 H CK-MB (CK-2) Troponin T 0.119 H* D Total Protein Albumin HDL Cholesterol 61 H TSH Free T3 Index Arterial Blood Glucose Arterial Blood Ionized Calcium Urine pH Urine WBC (Auto) Urine Creatinine Acetaminophen 04/17/21 04/17/21 04/17/21 15:35 15:35 17:07 WBC 17.1 H RBC Hgb Hct MCV RDW Plt Count Lymph % (Auto) Seg Neutrophils % Seg Neuts % (Manual) Lymphocytes % (Manual) Monocytes % (Manual) Seg Neutrophils # Seg Neutrophils # Man Lymphocytes # (Manual) Monocytes # (Manual) ABG pH POC ABG pCO2 POC ABG pO2 ABG Hemoglobin ABG Oxyhemoglobin ABG Sodium ABG Potassium ABG Chloride ABG Glucose Carboxyhemoglobin Sodium Potassium Chloride BUN Creatinine Glucose POC Glucose 148 H Calcium Phosphorus Magnesium AST ALT Total Creatine Kinase 615 H CK-MB (CK-2) 9.1 H Troponin T Total Protein Albumin HDL Cholesterol TSH Free T3 Index Arterial Blood Glucose Arterial Blood Ionized Calcium Urine pH Urine WBC (Auto) Urine Creatinine Acetaminophen 04/18/21 04/18/21 04/18/21 00:01 03:00 05:24 WBC RBC Hgb Hct MCV RDW Plt Count Lymph % (Auto) Seg Neutrophils % Seg Neuts % (Manual) Lymphocytes % (Manual) Monocytes % (Manual) Seg Neutrophils # Seg Neutrophils # Man Lymphocytes # (Manual) Monocytes # (Manual) ABG pH 7.497 H POC ABG pCO2 POC ABG pO2 77.7 L ABG Hemoglobin 10.4 L ABG Oxyhemoglobin ABG Sodium 129.7 L ABG Potassium 2.8 L ABG Chloride 92.0 L ABG Glucose 134 H Carboxyhemoglobin 0.3 L Sodium Potassium Chloride BUN Creatinine Glucose POC Glucose 192 H 162 H Calcium Phosphorus Magnesium AST ALT Total Creatine Kinase CK-MB (CK-2) Troponin T Total Protein Albumin HDL Cholesterol TSH Free T3 Index Arterial Blood Glucose 134 H Arterial Blood Ionized Calcium 4.3 L Urine pH Urine WBC (Auto) Urine Creatinine Acetaminophen 04/18/21 04/18/21 04/18/21 05:34 05:34 05:43 WBC 15.3 H RBC 3.34 L Hgb Hct MCV RDW 15.3 H Plt Count Lymph % (Auto) Seg Neutrophils % Seg Neuts % (Manual) Lymphocytes % (Manual) Monocytes % (Manual) Seg Neutrophils # Seg Neutrophils # Man Lymphocytes # (Manual) Monocytes # (Manual) ABG pH POC ABG pCO2 POC ABG pO2 ABG Hemoglobin ABG Oxyhemoglobin ABG Sodium ABG Potassium ABG Chloride ABG Glucose Carboxyhemoglobin Sodium 134 L Potassium 3.0 L D Chloride 93.5 L BUN 42 H Creatinine 3.1 H Glucose 152 H POC Glucose Calcium Phosphorus Magnesium 1.40 L AST ALT Total Creatine Kinase 427 H CK-MB (CK-2) Troponin T 0.081 H D Total Protein Albumin HDL Cholesterol TSH Free T3 Index Arterial Blood Glucose Arterial Blood Ionized Calcium Urine pH Urine WBC (Auto) Urine Creatinine Acetaminophen 04/18/21 04/18/21 04/18/21 09:11 11:34 17:24 WBC RBC Hgb Hct MCV RDW Plt Count Lymph % (Auto) Seg Neutrophils % Seg Neuts % (Manual) Lymphocytes % (Manual) Monocytes % (Manual) Seg Neutrophils # Seg Neutrophils # Man Lymphocytes # (Manual) Monocytes # (Manual) ABG pH POC ABG pCO2 POC ABG pO2 ABG Hemoglobin ABG Oxyhemoglobin ABG Sodium ABG Potassium ABG Chloride ABG Glucose Carboxyhemoglobin Sodium Potassium Chloride BUN Creatinine Glucose POC Glucose 170 H 151 H Calcium Phosphorus Magnesium AST ALT Total Creatine Kinase CK-MB (CK-2) Troponin T Total Protein Albumin HDL Cholesterol TSH Free T3 Index Arterial Blood Glucose Arterial Blood Ionized Calcium Urine pH Urine WBC (Auto) 34.0 H Urine Creatinine Acetaminophen 04/18/21 04/19/21 04/19/21 23:18 04:09 05:19 WBC RBC Hgb Hct MCV RDW Plt Count Lymph % (Auto) Seg Neutrophils % Seg Neuts % (Manual) Lymphocytes % (Manual) Monocytes % (Manual) Seg Neutrophils # Seg Neutrophils # Man Lymphocytes # (Manual) Monocytes # (Manual) ABG pH 7.476 H POC ABG pCO2 POC ABG pO2 79.4 L ABG Hemoglobin 10.7 L ABG Oxyhemoglobin ABG Sodium 131.2 L ABG Potassium 2.8 L ABG Chloride 94.0 L ABG Glucose 209 H Carboxyhemoglobin 0.3 L Sodium Potassium Chloride BUN Creatinine Glucose POC Glucose 182 H 204 H Calcium Phosphorus Magnesium AST ALT Total Creatine Kinase CK-MB (CK-2) Troponin T Total Protein Albumin HDL Cholesterol TSH Free T3 Index Arterial Blood Glucose 209 H Arterial Blood Ionized Calcium Urine pH Urine WBC (Auto) Urine Creatinine Acetaminophen 04/19/21 04/19/21 04/19/21 07:30 07:30 10:35 WBC 14.8 H RBC 3.20 L Hgb Hct MCV 98 H RDW Plt Count 137 L Lymph % (Auto) Seg Neutrophils % Seg Neuts % (Manual) Lymphocytes % (Manual) Monocytes % (Manual) Seg Neutrophils # Seg Neutrophils # Man Lymphocytes # (Manual) Monocytes # (Manual) ABG pH 7.464 H POC ABG pCO2 POC ABG pO2 81.8 L ABG Hemoglobin 10.8 L ABG Oxyhemoglobin ABG Sodium 129.6 L ABG Potassium ABG Chloride 95.0 L ABG Glucose 238 H Carboxyhemoglobin Sodium 133 L Potassium 2.8 L* Chloride 94.4 L BUN 43 H Creatinine 2.7 H Glucose 255 H POC Glucose Calcium 8.0 L Phosphorus Magnesium AST ALT Total Creatine Kinase CK-MB (CK-2) Troponin T 0.060 H D Total Protein Albumin HDL Cholesterol TSH Free T3 Index Arterial Blood Glucose 238 H Arterial Blood Ionized Calcium Urine pH Urine WBC (Auto) Urine Creatinine Acetaminophen 04/19/21 04/19/21 04/19/21 11:48 20:40 23:04 WBC RBC Hgb Hct MCV RDW Plt Count Lymph % (Auto) Seg Neutrophils % Seg Neuts % (Manual) Lymphocytes % (Manual) Monocytes % (Manual) Seg Neutrophils # Seg Neutrophils # Man Lymphocytes # (Manual) Monocytes # (Manual) ABG pH POC ABG pCO2 POC ABG pO2 ABG Hemoglobin ABG Oxyhemoglobin ABG Sodium ABG Potassium ABG Chloride ABG Glucose Carboxyhemoglobin Sodium Potassium 3.4 L D Chloride BUN Creatinine Glucose POC Glucose 208 H 173 H Calcium Phosphorus Magnesium AST ALT Total Creatine Kinase CK-MB (CK-2) Troponin T Total Protein Albumin HDL Cholesterol TSH Free T3 Index Arterial Blood Glucose Arterial Blood Ionized Calcium Urine pH Urine WBC (Auto) Urine Creatinine Acetaminophen 04/20/21 04/20/21 04/20/21 02:56 03:32 03:32 WBC 13.2 H RBC 3.18 L Hgb Hct MCV RDW Plt Count Lymph % (Auto) Seg Neutrophils % Seg Neuts % (Manual) Lymphocytes % (Manual) Monocytes % (Manual) Seg Neutrophils # Seg Neutrophils # Man Lymphocytes # (Manual) Monocytes # (Manual) ABG pH 7.526 H POC ABG pCO2 POC ABG pO2 ABG Hemoglobin 10.5 L ABG Oxyhemoglobin ABG Sodium 133.5 L ABG Potassium ABG Chloride ABG Glucose 157 H Carboxyhemoglobin 0.3 L Sodium 135 L Potassium Chloride 96.7 L BUN 40 H Creatinine 2.3 H Glucose 142 H POC Glucose Calcium Phosphorus Magnesium AST ALT Total Creatine Kinase CK-MB (CK-2) Troponin T 0.065 H Total Protein Albumin HDL Cholesterol TSH Free T3 Index Arterial Blood Glucose 157 H Arterial Blood Ionized Calcium Urine pH Urine WBC (Auto) Urine Creatinine Acetaminophen 04/20/21 04/20/21 04/20/21 03:46 05:42 11:50 WBC RBC Hgb Hct MCV RDW Plt Count Lymph % (Auto) Seg Neutrophils % Seg Neuts % (Manual) Lymphocytes % (Manual) Monocytes % (Manual) Seg Neutrophils # Seg Neutrophils # Man Lymphocytes # (Manual) Monocytes # (Manual) ABG pH POC ABG pCO2 POC ABG pO2 ABG Hemoglobin ABG Oxyhemoglobin ABG Sodium ABG Potassium ABG Chloride ABG Glucose Carboxyhemoglobin Sodium Potassium Chloride BUN Creatinine Glucose POC Glucose 160 H 194 H Calcium Phosphorus 2.10 L Magnesium AST ALT Total Creatine Kinase CK-MB (CK-2) Troponin T Total Protein Albumin HDL Cholesterol TSH Free T3 Index Arterial Blood Glucose Arterial Blood Ionized Calcium Urine pH Urine WBC (Auto) Urine Creatinine Acetaminophen 04/20/21 04/20/21 04/21/21 17:09 23:18 05:26 WBC RBC Hgb Hct MCV RDW Plt Count Lymph % (Auto) Seg Neutrophils % Seg Neuts % (Manual) Lymphocytes % (Manual) Monocytes % (Manual) Seg Neutrophils # Seg Neutrophils # Man Lymphocytes # (Manual) Monocytes # (Manual) ABG pH POC ABG pCO2 POC ABG pO2 ABG Hemoglobin ABG Oxyhemoglobin ABG Sodium ABG Potassium ABG Chloride ABG Glucose Carboxyhemoglobin Sodium Potassium Chloride BUN Creatinine Glucose POC Glucose 153 H 162 H 164 H Calcium Phosphorus Magnesium AST ALT Total Creatine Kinase CK-MB (CK-2) Troponin T Total Protein Albumin HDL Cholesterol TSH Free T3 Index Arterial Blood Glucose Arterial Blood Ionized Calcium Urine pH Urine WBC (Auto) Urine Creatinine Acetaminophen 04/21/21 04/21/21 04/21/21 05:51 05:51 12:12 WBC RBC 3.20 L Hgb Hct MCV 99 H RDW 15.3 H Plt Count Lymph % (Auto) Seg Neutrophils % Seg Neuts % (Manual) Lymphocytes % (Manual) Monocytes % (Manual) Seg Neutrophils # Seg Neutrophils # Man Lymphocytes # (Manual) Monocytes # (Manual) ABG pH POC ABG pCO2 POC ABG pO2 ABG Hemoglobin ABG Oxyhemoglobin ABG Sodium ABG Potassium ABG Chloride ABG Glucose Carboxyhemoglobin Sodium Potassium Chloride 96.6 L BUN 42 H Creatinine 2.1 H Glucose 171 H POC Glucose 167 H Calcium Phosphorus Magnesium AST ALT Total Creatine Kinase CK-MB (CK-2) Troponin T Total Protein Albumin HDL Cholesterol TSH Free T3 Index Arterial Blood Glucose Arterial Blood Ionized Calcium Urine pH Urine WBC (Auto) Urine Creatinine Acetaminophen 04/21/21 04/21/21 04/22/21 17:13 23:42 05:29 WBC RBC Hgb Hct MCV RDW Plt Count Lymph % (Auto) Seg Neutrophils % Seg Neuts % (Manual) Lymphocytes % (Manual) Monocytes % (Manual) Seg Neutrophils # Seg Neutrophils # Man Lymphocytes # (Manual) Monocytes # (Manual) ABG pH POC ABG pCO2 POC ABG pO2 ABG Hemoglobin ABG Oxyhemoglobin ABG Sodium ABG Potassium ABG Chloride ABG Glucose Carboxyhemoglobin Sodium Potassium Chloride BUN Creatinine Glucose POC Glucose 178 H 253 H 208 H Calcium Phosphorus Magnesium AST ALT Total Creatine Kinase CK-MB (CK-2) Troponin T Total Protein Albumin HDL Cholesterol TSH Free T3 Index Arterial Blood Glucose Arterial Blood Ionized Calcium Urine pH Urine WBC (Auto) Urine Creatinine Acetaminophen 04/22/21 04/22/21 04/22/21 08:00 08:00 12:06 WBC 12.9 H RBC Hgb Hct MCV RDW Plt Count Lymph % (Auto) Seg Neutrophils % Seg Neuts % (Manual) Lymphocytes % (Manual) Monocytes % (Manual) Seg Neutrophils # Seg Neutrophils # Man Lymphocytes # (Manual) Monocytes # (Manual) ABG pH POC ABG pCO2 POC ABG pO2 ABG Hemoglobin ABG Oxyhemoglobin ABG Sodium ABG Potassium ABG Chloride ABG Glucose Carboxyhemoglobin Sodium Potassium Chloride BUN 47 H Creatinine 1.9 H Glucose 252 H POC Glucose 298 H Calcium Phosphorus Magnesium AST ALT Total Creatine Kinase CK-MB (CK-2) Troponin T Total Protein Albumin HDL Cholesterol TSH Free T3 Index Arterial Blood Glucose Arterial Blood Ionized Calcium Urine pH Urine WBC (Auto) Urine Creatinine Acetaminophen 04/22/21 04/22/21 04/23/21 17:34 23:01 05:08 WBC RBC Hgb Hct MCV RDW Plt Count Lymph % (Auto) Seg Neutrophils % Seg Neuts % (Manual) Lymphocytes % (Manual) Monocytes % (Manual) Seg Neutrophils # Seg Neutrophils # Man Lymphocytes # (Manual) Monocytes # (Manual) ABG pH POC ABG pCO2 POC ABG pO2 ABG Hemoglobin ABG Oxyhemoglobin ABG Sodium ABG Potassium ABG Chloride ABG Glucose Carboxyhemoglobin Sodium Potassium Chloride BUN Creatinine Glucose POC Glucose 259 H 280 H 223 H Calcium Phosphorus Magnesium AST ALT Total Creatine Kinase CK-MB (CK-2) Troponin T Total Protein Albumin HDL Cholesterol TSH Free T3 Index Arterial Blood Glucose Arterial Blood Ionized Calcium Urine pH Urine WBC (Auto) Urine Creatinine Acetaminophen 04/23/21 04/23/21 04/23/21 07:02 11:57 17:33 WBC RBC Hgb Hct MCV RDW Plt Count Lymph % (Auto) Seg Neutrophils % Seg Neuts % (Manual) Lymphocytes % (Manual) Monocytes % (Manual) Seg Neutrophils # Seg Neutrophils # Man Lymphocytes # (Manual) Monocytes # (Manual) ABG pH POC ABG pCO2 POC ABG pO2 ABG Hemoglobin ABG Oxyhemoglobin ABG Sodium ABG Potassium ABG Chloride ABG Glucose Carboxyhemoglobin Sodium Potassium Chloride 97.7 L BUN 57 H Creatinine 2.0 H Glucose 253 H POC Glucose 310 H 235 H Calcium Phosphorus Magnesium AST ALT Total Creatine Kinase CK-MB (CK-2) Troponin T Total Protein Albumin HDL Cholesterol TSH Free T3 Index Arterial Blood Glucose Arterial Blood Ionized Calcium Urine pH Urine WBC (Auto) Urine Creatinine Acetaminophen 04/23/21 04/24/21 04/24/21 23:15 05:23 05:46 WBC RBC Hgb Hct MCV RDW Plt Count Lymph % (Auto) Seg Neutrophils % Seg Neuts % (Manual) Lymphocytes % (Manual) Monocytes % (Manual) Seg Neutrophils # Seg Neutrophils # Man Lymphocytes # (Manual) Monocytes # (Manual) ABG pH POC ABG pCO2 POC ABG pO2 ABG Hemoglobin ABG Oxyhemoglobin ABG Sodium ABG Potassium ABG Chloride ABG Glucose Carboxyhemoglobin Sodium Potassium 5.2 H D Chloride BUN 68 H Creatinine 2.3 H Glucose 277 H POC Glucose 197 H 274 H Calcium Phosphorus Magnesium AST ALT Total Creatine Kinase CK-MB (CK-2) Troponin T Total Protein Albumin HDL Cholesterol TSH Free T3 Index Arterial Blood Glucose Arterial Blood Ionized Calcium Urine pH Urine WBC (Auto) Urine Creatinine Acetaminophen 04/24/21 04/24/21 04/24/21 11:33 11:52 17:49 WBC RBC Hgb Hct MCV RDW Plt Count Lymph % (Auto) Seg Neutrophils % Seg Neuts % (Manual) Lymphocytes % (Manual) Monocytes % (Manual) Seg Neutrophils # Seg Neutrophils # Man Lymphocytes # (Manual) Monocytes # (Manual) ABG pH POC ABG pCO2 POC ABG pO2 72.7 L ABG Hemoglobin 11.6 L ABG Oxyhemoglobin 92.9 L ABG Sodium ABG Potassium ABG Chloride ABG Glucose 269 H Carboxyhemoglobin Sodium Potassium Chloride BUN Creatinine Glucose POC Glucose 223 H 252 H Calcium Phosphorus Magnesium AST ALT Total Creatine Kinase CK-MB (CK-2) Troponin T Total Protein Albumin HDL Cholesterol TSH Free T3 Index Arterial Blood Glucose 269 H Arterial Blood Ionized Calcium Urine pH Urine WBC (Auto) Urine Creatinine Acetaminophen 05/25/21 05/25/21 05/26/21 21:00 23:48 03:06 WBC RBC Hgb Hct MCV RDW Plt Count Lymph % (Auto) Seg Neutrophils % Seg Neuts % (Manual) Lymphocytes % (Manual) Monocytes % (Manual) Seg Neutrophils # Seg Neutrophils # Man Lymphocytes # (Manual) Monocytes # (Manual) ABG pH 7.521 H 7.451 H POC ABG pCO2 POC ABG pO2 80.7 L 77.1 L ABG Hemoglobin 10.4 L 11.2 L ABG Oxyhemoglobin ABG Sodium ABG Potassium ABG Chloride ABG Glucose 186 H 165 H Carboxyhemoglobin 0 L Sodium Potassium Chloride BUN Creatinine Glucose POC Glucose 141 H Calcium Phosphorus Magnesium AST ALT Total Creatine Kinase CK-MB (CK-2) Troponin T Total Protein Albumin HDL Cholesterol TSH Free T3 Index Arterial Blood Glucose 186 H 165 H Arterial Blood Ionized Calcium Urine pH Urine WBC (Auto) Urine Creatinine Acetaminophen 04/25/21 04/25/21 04/25/21 03:56 03:56 06:03 WBC 12.3 H RBC 3.40 L Hgb Hct MCV RDW Plt Count Lymph % (Auto) Seg Neutrophils % Seg Neuts % (Manual) Lymphocytes % (Manual) Monocytes % (Manual) Seg Neutrophils # Seg Neutrophils # Man Lymphocytes # (Manual) Monocytes # (Manual) ABG pH POC ABG pCO2 POC ABG pO2 ABG Hemoglobin ABG Oxyhemoglobin ABG Sodium ABG Potassium ABG Chloride ABG Glucose Carboxyhemoglobin Sodium Potassium Chloride BUN 78 H Creatinine 2.5 H Glucose 152 H POC Glucose 171 H Calcium Phosphorus Magnesium AST ALT Total Creatine Kinase CK-MB (CK-2) Troponin T Total Protein Albumin HDL Cholesterol TSH Free T3 Index Arterial Blood Glucose Arterial Blood Ionized Calcium Urine pH Urine WBC (Auto) Urine Creatinine Acetaminophen 04/25/21 04/25/21 04/26/21 11:43 15:37 00:05 WBC RBC Hgb Hct MCV RDW Plt Count Lymph % (Auto) Seg Neutrophils % Seg Neuts % (Manual) Lymphocytes % (Manual) Monocytes % (Manual) Seg Neutrophils # Seg Neutrophils # Man Lymphocytes # (Manual) Monocytes # (Manual) ABG pH POC ABG pCO2 POC ABG pO2 ABG Hemoglobin ABG Oxyhemoglobin ABG Sodium ABG Potassium ABG Chloride ABG Glucose Carboxyhemoglobin Sodium Potassium Chloride BUN Creatinine Glucose POC Glucose 181 H 167 H 144 H Calcium Phosphorus Magnesium AST ALT Total Creatine Kinase CK-MB (CK-2) Troponin T Total Protein Albumin HDL Cholesterol TSH Free T3 Index Arterial Blood Glucose Arterial Blood Ionized Calcium Urine pH Urine WBC (Auto) Urine Creatinine Acetaminophen 04/26/21 04/26/21 04/26/21 04:30 05:44 09:30 WBC RBC Hgb Hct MCV RDW Plt Count Lymph % (Auto) Seg Neutrophils % Seg Neuts % (Manual) Lymphocytes % (Manual) Monocytes % (Manual) Seg Neutrophils # Seg Neutrophils # Man Lymphocytes # (Manual) Monocytes # (Manual) ABG pH 7.529 H POC ABG pCO2 POC ABG pO2 66.1 L ABG Hemoglobin 11.2 L ABG Oxyhemoglobin 92.8 L ABG Sodium ABG Potassium ABG Chloride ABG Glucose 216 H Carboxyhemoglobin 0.3 L Sodium Potassium Chloride BUN 82 H Creatinine 2.7 H Glucose 238 H POC Glucose 202 H Calcium Phosphorus Magnesium AST ALT Total Creatine Kinase CK-MB (CK-2) Troponin T Total Protein Albumin HDL Cholesterol TSH Free T3 Index Arterial Blood Glucose 216 H Arterial Blood Ionized Calcium Urine pH Urine WBC (Auto) Urine Creatinine Acetaminophen 04/26/21 04/26/21 04/26/21 09:30 11:32 17:21 WBC 24.7 H RBC 3.32 L Hgb Hct MCV RDW Plt Count Lymph % (Auto) Seg Neutrophils % Seg Neuts % (Manual) Lymphocytes % (Manual) Monocytes % (Manual) Seg Neutrophils # Seg Neutrophils # Man Lymphocytes # (Manual) Monocytes # (Manual) ABG pH POC ABG pCO2 POC ABG pO2 ABG Hemoglobin ABG Oxyhemoglobin ABG Sodium ABG Potassium ABG Chloride ABG Glucose Carboxyhemoglobin Sodium Potassium Chloride BUN Creatinine Glucose POC Glucose 245 H 264 H Calcium Phosphorus Magnesium AST ALT Total Creatine Kinase CK-MB (CK-2) Troponin T Total Protein Albumin HDL Cholesterol TSH Free T3 Index Arterial Blood Glucose Arterial Blood Ionized Calcium Urine pH Urine WBC (Auto) Urine Creatinine Acetaminophen 04/26/21 04/27/21 04/27/21 23:18 04:23 04:54 WBC RBC Hgb Hct MCV RDW Plt Count Lymph % (Auto) Seg Neutrophils % Seg Neuts % (Manual) Lymphocytes % (Manual) Monocytes % (Manual) Seg Neutrophils # Seg Neutrophils # Man Lymphocytes # (Manual) Monocytes # (Manual) ABG pH 7.549 H POC ABG pCO2 30.0 L POC ABG pO2 64.9 L ABG Hemoglobin 11 L ABG Oxyhemoglobin 93.3 L ABG Sodium ABG Potassium ABG Chloride ABG Glucose 325 H Carboxyhemoglobin 0.3 L Sodium Potassium Chloride BUN Creatinine Glucose POC Glucose 201 H 298 H Calcium Phosphorus Magnesium AST ALT Total Creatine Kinase CK-MB (CK-2) Troponin T Total Protein Albumin HDL Cholesterol TSH Free T3 Index Arterial Blood Glucose 325 H Arterial Blood Ionized Calcium Urine pH Urine WBC (Auto) Urine Creatinine Acetaminophen 04/27/21 04/27/21 04/27/21 07:52 07:52 11:22 WBC 23.0 H RBC 3.32 L Hgb Hct MCV RDW 15.5 H Plt Count Lymph % (Auto) Seg Neutrophils % Seg Neuts % (Manual) Lymphocytes % (Manual) Monocytes % (Manual) Seg Neutrophils # Seg Neutrophils # Man Lymphocytes # (Manual) Monocytes # (Manual) ABG pH POC ABG pCO2 POC ABG pO2 ABG Hemoglobin ABG Oxyhemoglobin ABG Sodium ABG Potassium ABG Chloride ABG Glucose Carboxyhemoglobin Sodium Potassium 3.5 L Chloride BUN 90 H Creatinine 2.8 H Glucose 286 H POC Glucose 251 H Calcium Phosphorus Magnesium AST ALT Total Creatine Kinase CK-MB (CK-2) Troponin T Total Protein Albumin HDL Cholesterol TSH Free T3 Index Arterial Blood Glucose Arterial Blood Ionized Calcium Urine pH Urine WBC (Auto) Urine Creatinine Acetaminophen 04/27/21 04/27/21 04/27/21 17:21 17:45 23:05 WBC RBC Hgb Hct MCV RDW Plt Count Lymph % (Auto) Seg Neutrophils % Seg Neuts % (Manual) Lymphocytes % (Manual) Monocytes % (Manual) Seg Neutrophils # Seg Neutrophils # Man Lymphocytes # (Manual) Monocytes # (Manual) ABG pH POC ABG pCO2 POC ABG pO2 ABG Hemoglobin ABG Oxyhemoglobin ABG Sodium ABG Potassium ABG Chloride ABG Glucose Carboxyhemoglobin Sodium Potassium Chloride BUN Creatinine Glucose POC Glucose 180 H 178 H 189 H Calcium Phosphorus Magnesium AST ALT Total Creatine Kinase CK-MB (CK-2) Troponin T Total Protein Albumin HDL Cholesterol TSH Free T3 Index Arterial Blood Glucose Arterial Blood Ionized Calcium Urine pH Urine WBC (Auto) Urine Creatinine Acetaminophen 04/28/21 04/28/21 04/28/21 03:14 04:13 04:13 WBC 17.6 H RBC 3.03 L Hgb 9.7 L Hct 29.5 L MCV RDW Plt Count Lymph % (Auto) Seg Neutrophils % Seg Neuts % (Manual) Lymphocytes % (Manual) Monocytes % (Manual) Seg Neutrophils # Seg Neutrophils # Man Lymphocytes # (Manual) Monocytes # (Manual) ABG pH 7.507 H POC ABG pCO2 POC ABG pO2 62.0 L ABG Hemoglobin 10.2 L ABG Oxyhemoglobin 91.9 L ABG Sodium ABG Potassium ABG Chloride ABG Glucose 337 H Carboxyhemoglobin 0.2 L Sodium Potassium Chloride BUN 101 H Creatinine 3.1 H Glucose 304 H POC Glucose Calcium Phosphorus Magnesium AST 61 H ALT 64 H Total Creatine Kinase CK-MB (CK-2) Troponin T Total Protein 6.2 L Albumin 2.6 L HDL Cholesterol TSH Free T3 Index Arterial Blood Glucose 337 H Arterial Blood Ionized Calcium Urine pH Urine WBC (Auto) Urine Creatinine Acetaminophen 04/28/21 04/28/21 04/28/21 05:01 11:28 18:23 WBC RBC Hgb Hct MCV RDW Plt Count Lymph % (Auto) Seg Neutrophils % Seg Neuts % (Manual) Lymphocytes % (Manual) Monocytes % (Manual) Seg Neutrophils # Seg Neutrophils # Man Lymphocytes # (Manual) Monocytes # (Manual) ABG pH POC ABG pCO2 POC ABG pO2 ABG Hemoglobin ABG Oxyhemoglobin ABG Sodium ABG Potassium ABG Chloride ABG Glucose Carboxyhemoglobin Sodium Potassium Chloride BUN Creatinine Glucose POC Glucose 282 H 263 H 200 H Calcium Phosphorus Magnesium AST ALT Total Creatine Kinase CK-MB (CK-2) Troponin T Total Protein Albumin HDL Cholesterol TSH Free T3 Index Arterial Blood Glucose Arterial Blood Ionized Calcium Urine pH Urine WBC (Auto) Urine Creatinine Acetaminophen 04/28/21 04/29/21 04/29/21 23:49 03:24 04:22 WBC RBC Hgb Hct MCV RDW Plt Count Lymph % (Auto) Seg Neutrophils % Seg Neuts % (Manual) Lymphocytes % (Manual) Monocytes % (Manual) Seg Neutrophils # Seg Neutrophils # Man Lymphocytes # (Manual) Monocytes # (Manual) ABG pH 7.546 H POC ABG pCO2 POC ABG pO2 52.4 L ABG Hemoglobin 10.5 L ABG Oxyhemoglobin 88.3 L ABG Sodium ABG Potassium ABG Chloride ABG Glucose 217 H Carboxyhemoglobin 0.4 L Sodium 148 H Potassium Chloride BUN 110 H Creatinine 3.1 H Glucose 208 H POC Glucose 238 H Calcium Phosphorus Magnesium AST ALT Total Creatine Kinase CK-MB (CK-2) Troponin T Total Protein Albumin HDL Cholesterol TSH Free T3 Index Arterial Blood Glucose 217 H Arterial Blood Ionized Calcium Urine pH Urine WBC (Auto) Urine Creatinine Acetaminophen 04/29/21 04/29/21 04/29/21 04:22 05:08 11:26 WBC 15.2 H RBC 3.30 L Hgb 9.8 L Hct MCV RDW Plt Count Lymph % (Auto) Seg Neutrophils % Seg Neuts % (Manual) Lymphocytes % (Manual) Monocytes % (Manual) Seg Neutrophils # Seg Neutrophils # Man Lymphocytes # (Manual) Monocytes # (Manual) ABG pH POC ABG pCO2 POC ABG pO2 ABG Hemoglobin ABG Oxyhemoglobin ABG Sodium ABG Potassium ABG Chloride ABG Glucose Carboxyhemoglobin Sodium Potassium Chloride BUN Creatinine Glucose POC Glucose 181 H 218 H Calcium Phosphorus Magnesium AST ALT Total Creatine Kinase CK-MB (CK-2) Troponin T Total Protein Albumin HDL Cholesterol TSH Free T3 Index Arterial Blood Glucose Arterial Blood Ionized Calcium Urine pH Urine WBC (Auto) Urine Creatinine Acetaminophen 04/29/21 04/29/21 04/30/21 17:06 23:06 03:58 WBC RBC Hgb Hct MCV RDW Plt Count Lymph % (Auto) Seg Neutrophils % Seg Neuts % (Manual) Lymphocytes % (Manual) Monocytes % (Manual) Seg Neutrophils # Seg Neutrophils # Man Lymphocytes # (Manual) Monocytes # (Manual) ABG pH 7.547 H POC ABG pCO2 31.3 L POC ABG pO2 58.4 L ABG Hemoglobin 9.6 L ABG Oxyhemoglobin 91.1 L ABG Sodium ABG Potassium ABG Chloride 108.0 H ABG Glucose 248 H Carboxyhemoglobin 0.2 L Sodium Potassium Chloride BUN Creatinine Glucose POC Glucose 223 H 252 H Calcium Phosphorus Magnesium AST ALT Total Creatine Kinase CK-MB (CK-2) Troponin T Total Protein Albumin HDL Cholesterol TSH Free T3 Index Arterial Blood Glucose 248 H Arterial Blood Ionized Calcium Urine pH Urine WBC (Auto) Urine Creatinine Acetaminophen 04/30/21 04/30/21 04/30/21 05:23 05:54 11:47 WBC RBC Hgb Hct MCV RDW Plt Count Lymph % (Auto) Seg Neutrophils % Seg Neuts % (Manual) Lymphocytes % (Manual) Monocytes % (Manual) Seg Neutrophils # Seg Neutrophils # Man Lymphocytes # (Manual) Monocytes # (Manual) ABG pH POC ABG pCO2 POC ABG pO2 ABG Hemoglobin ABG Oxyhemoglobin ABG Sodium ABG Potassium ABG Chloride ABG Glucose Carboxyhemoglobin Sodium Potassium Chloride BUN 118 H Creatinine 3.3 H Glucose 263 H POC Glucose 244 H 237 H Calcium Phosphorus Magnesium AST ALT Total Creatine Kinase CK-MB (CK-2) Troponin T Total Protein Albumin HDL Cholesterol TSH Free T3 Index Arterial Blood Glucose Arterial Blood Ionized Calcium Urine pH Urine WBC (Auto) Urine Creatinine Acetaminophen 04/30/21 04/30/21 04/30/21 17:26 17:45 23:51 WBC RBC Hgb Hct MCV RDW Plt Count Lymph % (Auto) Seg Neutrophils % Seg Neuts % (Manual) Lymphocytes % (Manual) Monocytes % (Manual) Seg Neutrophils # Seg Neutrophils # Man Lymphocytes # (Manual) Monocytes # (Manual) ABG pH POC ABG pCO2 POC ABG pO2 ABG Hemoglobin ABG Oxyhemoglobin ABG Sodium ABG Potassium ABG Chloride ABG Glucose Carboxyhemoglobin Sodium Potassium Chloride BUN Creatinine Glucose POC Glucose 193 H 197 H Calcium Phosphorus Magnesium AST ALT Total Creatine Kinase CK-MB (CK-2) Troponin T Total Protein Albumin HDL Cholesterol TSH Free T3 Index Arterial Blood Glucose Arterial Blood Ionized Calcium Urine pH Urine WBC (Auto) 48.0 H Urine Creatinine Acetaminophen 05/01/21 05/01/21 05/01/21 04:02 04:57 07:11 WBC 12.3 H RBC 2.83 L Hgb 8.8 L Hct 27.3 L MCV RDW Plt Count Lymph % (Auto) Seg Neutrophils % Seg Neuts % (Manual) 80.0 H Lymphocytes % (Manual) 5.0 L Monocytes % (Manual) Seg Neutrophils # Seg Neutrophils # Man 9.8 H Lymphocytes # (Manual) 0.6 L Monocytes # (Manual) ABG pH 7.466 H POC ABG pCO2 POC ABG pO2 61.4 L ABG Hemoglobin 9.0 L ABG Oxyhemoglobin 91.1 L ABG Sodium ABG Potassium ABG Chloride 110.0 H ABG Glucose 245 H Carboxyhemoglobin Sodium Potassium Chloride BUN Creatinine Glucose POC Glucose 193 H Calcium Phosphorus Magnesium AST ALT Total Creatine Kinase CK-MB (CK-2) Troponin T Total Protein Albumin HDL Cholesterol TSH Free T3 Index Arterial Blood Glucose 245 H Arterial Blood Ionized Calcium Urine pH Urine WBC (Auto) Urine Creatinine Acetaminophen 05/01/21 05/01/21 07:11 07:45 WBC RBC Hgb Hct MCV RDW Plt Count Lymph % (Auto) Seg Neutrophils % Seg Neuts % (Manual) Lymphocytes % (Manual) Monocytes % (Manual) Seg Neutrophils # Seg Neutrophils # Man Lymphocytes # (Manual) Monocytes # (Manual) ABG pH POC ABG pCO2 POC ABG pO2 ABG Hemoglobin ABG Oxyhemoglobin ABG Sodium ABG Potassium ABG Chloride ABG Glucose Carboxyhemoglobin Sodium 146 H Potassium Chloride 108.4 H BUN 122 H Creatinine 3.4 H Glucose 235 H POC Glucose 212 H Calcium Phosphorus Magnesium AST ALT Total Creatine Kinase CK-MB (CK-2) Troponin T Total Protein Albumin HDL Cholesterol TSH Free T3 Index Arterial Blood Glucose Arterial Blood Ionized Calcium Urine pH Urine WBC (Auto) Urine Creatinine Acetaminophen Chest x-ray: image reviewed (no new infiltrate or PTX) Allied health notes reviewed: nursing
--- NOTE | 2021-05-01 12:37 | Progress Note ---
<DARSHANAMoniquePURNIMAElvia - Last Filed: 05/01/21 13:48> Assessment and Plan Assessment and plan: This is a 80-year-old female with HTN, DM, [place], breast CA s/p double mastectomy, TIA who presented with hypoglycemia, AMS who was admitted with SIRS, symptomatic bradycardia, acute metabolic encephalopathy, acute hypoxic respiratory failure, elevated TSH, hyperglycemia, hyponatremia, hypokalemia, ROJELIO and rhabdomyolysis Acute metabolic encephalopathy-persist Acute hypoxic respiratory failure (extubated 04/20)- Re-intubated secondary to Stridor and paradoxical breathing First-degree heart block Resolved ileus versus mechanical obstruction Acute kidney injury with vasomotor nephropathy UTI, Pseudomonas Possible seizure activity Elevated TSH Leukocytosis Mild rhabdomyolysis Hypertension Diabetes mellitus with hyperglycemia on admission CAD Hypothyrodisim Chronic illness debilitymyopathy Obesity -[facility], nephrology, neurology, cardiology consulted, patient recommendations -S/p antibiotic therapy x1, currently on abd for UTI -S/p D10 and D5W gtt, on TF -S/p IV calcium gluconate, regular insulin, D50 -S/p transcutaneous pacing, intermittent demand pacer in place -Renal ultrasound findings consistent with acute on chronic kidney disease, mildly complex right renal cyst -Blood pressure monitoring per protocol -Accu-Cheks every 6, SSI, long acting insulin -IV hydralazine as needed -Avoid ACEi/ARB in setting of ROJELIO -Avoid AV arron blocking agents -Avoid nephrotoxic agents and renally dose medications -BB, add home antihtn regimen as needed -TSH 14.1, T4 4.1, T3 pending-started on levothyroxine -Provegil -As needed racemic epinephrine -S/p steroids -Antibiotic therapy -Trend CBC, BMP, CK DVT/GI prophylaxis: Heparin subcu, PPI, SCDs to bilateral lower extremities while in bed Disposition: ICU The high probability of a clinically significant, sudden or life threatening deterioration of the [PULMONARY, CARDIAC, RENAL] system(s) required my full and direct attention, intervention and personal management. The aggregate critical care time was [35] minutes. This time is in addition to time spent performing reported procedures but includes the following: [X] Data Review and interpretation [X] Patient assessment and monitoring of vital signs [X] Documentation [X] Medication orders and management History Interval history: This is a 80-year-old female with hypertension, diabetes mellitus, OH, breast cancer s/p double mastectomy, and a TIA who presented with hypoglycemia and altered mental status on 04/15 via EMS. Per EMS patient was unresponsive on their arrival and her blood glucose was 38 and she received 1 amp of dextrose patient continued to be unresponsive and only moaned with her eyes deviating to the left. Work-up in the emergency department revealed SIRS, symptomatic bradycardia, acute metabolic encephalopathy, acute hypoxic respiratory failure, elevated TSH, hyperglycemia, hyponatremia, hyperkalemia, acute kidney injury with ATN, and rhabdomyolysis 04/16: Neurology consulted, COVID-19 PCR negative, D10 drip decreased and eventually discontinued by [facility] and started on D5W for 1 L. Hydralazine as needed. Patient had hyper kalemia today and was treated with D50, insulin and Kayexalate. This time examination patient is on assist control tidal volume 450, rate of 16, PEEP of 6 and 25% FiO2. 04/17: Patient started on low-dose beta-angel per cardiology, CPAP trial again per [facility], BUN/creatinine holding steady and hypochloremia/hyponatremia slightly improved and hypokalemia has resolved. This morning a KUB was obtained which was concerning for ileus versus mechanical obstruction and surgery was consulted. Patient was made n.p.o. and NG tube placed to wall suction. Patient was given suppository. Per RN patient did not have a BM even though she was given Kayexalate yesterday. Will obtain a KUB in the a.m. Neurology was consu lted yesterday and will await further recommendations. Nephew updated at bedside today, Carlos Romero. 04/18: Neurology has ordered EEG/MRI B, [facility] continues to wean MV. Persistent low grade temperature so we will obtain BCx2/UA. Patient has improving leukocytosis, hyponatremia, renal function studies and hypochloremia. She has hypokalemia today which is being repleted. Surgery has signed off today and has okayed resumption of TF. [facility] will trial CPAP for longer today and plans to attempt extubation in AM. Family has requested transfer to [facility] and Dr. Gordon will attempt to contact transfer center. I updated her nephew, Carlos Romero over the phone today abouyt current events and update on transfer ([facility] will conduct a utilization review) 04/19: This morning patient is on CPAP trial at the time of examination, noted to be hypertensive and metoprolol increased to home dose, started on synthroid by CCM, lantus started re hyperglycemia, MRI completed with no acute findings. Severe hypokalemia (repleted and Mg pending). CCM will contact CPAP trial again today with possible trial extubation tomorrow. 04/20: Patient's leukocytosis and kidney function tests continue to improve. Patient is hypertensive overnight we will restart home hydralazine. [facility] plans to extubate patient today. Family is attempting to transfer to another facility. EEG pending, RT will atmept to contact solid waste technician. Urine culture grew gram negative rods. Increase in lantus 04/21: Increase in Lantus, repleted phos. Patient has started this afternoon and was given racemic epinephrine and started on steroids. Patient will have BiPAP as needed. We will recheck BMP in the a.m. renal function studies continues to decrease. Patient has been hypertensive on evaluation regimen has been changed. 04/22: Lantus increased for hyperglycemia and add amlodipine for better BP control. Patient is on steroids. OT suctioned by RN with catheter in oral care kit and received copious amounts of secretions. Cr continues to decrease. Culture grew Pseudomonas and was changed in accordance to sensitivity. Kerr removed today after clearance from nephrology. 04/23: MRI of the brain was done and unremarkable. Will obtain reconsult to nephrology for further assistance as patient remains in profound encephalopathy despite improvement of blood sugar. Will repeat chest x-ray as patient does have significant congestion physical exam. Tube feeds still ongoing. Continue aspiration precautions. Continue antibiotics when completed for Pseudomonas management 04/24: Neurology input noted, patient unfortunately with no improvement mental status [place], continues with congestion, will defer with Chucking Machine Set Up Operator Tool for lasix in the setting of renal failure. will give kayexlate for hyperkalemia, still moans and groans, mittens in place. 04/25: Patient currently intubated, on restraints for safety, Profund encephalopathy persist, although awake she is not following any commands, Call placed to [facility] to see if they will accept transfer for ENT evaluation, while CT neck was negative, it was degraded by motion and unable to determent why patient had this stridor, Racemic Epinephrine was given, [facility] is on ICU saturation, but will call back with an ENT to discuss case. Renal function mildly worse, continue to monitor. Per cardiology, no further arrhythmias noted since admission. Given short duration of atrial fibrillation, along with pt's age, renal fxn, and other co- morbidities,...will resume additional medical therapies for underlying severe multi-vessel CAD (bASA & Plavix). Pt has previously declined intervention of known lesions as per her Primary Meringuer. 04/26: Now with febrile illness, ?developing infection, start on empiric abx, check lactate level, blood cultures, continue management per Utility Locate Technician, Monitor leukocytosis, agree with Trach, family updated about denials in transfer request from outside hospitals. 04/27: WBC improving some, still with fever despite antibotics, ID consulted. CXR clear, continue current management, Trach will be planned if ok with family. Blood sugar remains elevated, will adjust insulin LANTUS to 40 units. Patient had previously completed Cefepime. Mental status remains unchanged, still moves upper ext. continue restraints 04/28: Continue supportive care. No new fever noted. Critical care physician will determine if patient should be have a trial of extubation again or if we should proceed straight to trach. Again continue to monitor mental status for complete improvement. 04/29: Per Utility Locate Technician discussion with family, will proceed to Tracheostomy, Patients mental status still fluctuating, Continue current management. Surgeon consulted. 04/30: General surgery consulted for trach, continue to trend CBC and BMP. Kidney function slightly worsened today. Increase in Lantus. Tmax 100.2, per ID will consider imaging if leukocytosis remains elevated with fevers. Plavix held for possible tracheostomy next week. 05/01: Patient fever curve is trending down with improving leukocytosis. Patient renal function worsened today. She remains hyperglycemic and her Lantus was increased to her home dose of Novolin 70/30. Patient was rate controlled yesterday due to T-max of 101. She remains on CMV tidal volume 450, rate of 10, PEEP of 6 and 30% FiO2. We will increase the water flushes given slight hypernatremia. Dr. Andrea updated nephew (Carlos) at bedside. CPAP trails. Hospitalist Physical - Constitutional Vitals: Temp Pulse Resp BP Pulse Ox 97.9 F 67 21 130/55 99 05/01/21 12:00 05/01/21 12:00 05/01/21 12:00 05/01/21 12:00 05/01/21 12:00 General appearance: Present: no acute distress, other (sedated) - EENT Eyes: Present: PERRL - Neck Neck: Present: normal ROM - Respiratory Respiratory effort: normal Respiratory: bilateral: CTA, diminished - Cardiovascular Rhythm: regular Heart Sounds: Present: S1 & S2. Absent: systolic murmur, diastolic murmur - Extremities Extremities: no ischemia, pulses intact, pulses symmetrical, normal temperature, normal color Peripheral Pulses: within normal limits - Abdominal General gastrointestinal: soft, non-tender, non-distended, normal bowel sounds - Integumentary Integumentary: Present: warm, dry - Psychiatric Psychiatric: other - Neurologic Neurologic: other (Intermittently follows commands ) - Allied Health Allied health notes reviewed: nursing, RT, social work HEART Score - HEART Score Troponin: Troponin T 0.065 ng/mL (0.00-0.029) H 04/20/21 03:32 Results - Labs CBC & Chem 7: 05/01/21 07:11 05/01/21 07:11 Labs: Laboratory Last Values WBC 12.3 K/mm3 (4.5-11.0) H 05/01/21 07:11 RBC 2.83 M/mm3 (3.65-5.03) L 05/01/21 07:11 Hgb 8.8 gm/dl (10.1-14.3) L 05/01/21 07:11 Hct 27.3 % (30.3-42.9) L 05/01/21 07:11 MCV 96 fl (79-97) 05/01/21 07:11 MCH 31 pg (28-32) 05/01/21 07:11 MCHC 32 % (30-34) 05/01/21 07:11 RDW 15.2 % (13.2-15.2) 05/01/21 07:11 Plt Count 298 K/mm3 (140-440) 05/01/21 07:11 Lymph % (Auto) 12.8 % (13.4-35.0) L 04/15/21 17:20 [place] % (Auto) 4.1 % (0.0-7.3) 04/15/21 17:20 Eos % (Auto) 0.3 % (0.0-4.3) 04/15/21 17:20 Baso % (Auto) 0.4 % (0.0-1.8) 04/15/21 17:20 Lymph # (Auto) 1.4 K/mm3 (1.2-5.4) 04/15/21 17:20 [place] # (Auto) 0.5 K/mm3 (0.0-0.8) 04/15/21 17:20 Eos # (Auto) 0.0 K/mm3 (0.0-0.4) 04/15/21 17:20 Baso # (Auto) 0.0 K/mm3 (0.0-0.1) 04/15/21 17:20 Add Manual Diff Complete 05/01/21 07:11 Total Counted 100 05/01/21 07:11 Seg Neutrophils % 82.4 % (40.0-70.0) H 04/15/21 17:20 Seg Neuts % (Manual) 80.0 % (40.0-70.0) H 05/01/21 07:11 Band Neutrophils % 7.0 % 05/01/21 07:11 Lymphocytes % (Manual) 5.0 % (13.4-35.0) L 05/01/21 07:11 Monocytes % (Manual) 6.0 % (0.0-7.3) 05/01/21 07:11 Eosinophils % (Manual) 1.0 % (0.0-4.3) 05/01/21 07:11 Metamyelocytes % 1.0 % 05/01/21 07:11 Nucleated RBC % Not Reportable 05/01/21 07:11 Seg Neutrophils # 9.3 K/mm3 (1.8-7.7) H 04/15/21 17:20 Seg Neutrophils # Man 9.8 K/mm3 (1.8-7.7) H 05/01/21 07:11 Band Neutrophils # 0.9 K/mm3 05/01/21 07:11 Lymphocytes # (Manual) 0.6 K/mm3 (1.2-5.4) L 05/01/21 07:11 Abs React Lymphs (Man) 0.0 K/mm3 05/01/21 07:11 Monocytes # (Manual) 0.7 K/mm3 (0.0-0.8) 05/01/21 07:11 Eosinophils # (Manual) 0.1 K/mm3 (0.0-0.4) 05/01/21 07:11 Basophils # (Manual) 0.0 K/mm3 (0.0-0.1) 05/01/21 07:11 Metamyelocytes # 0.1 K/mm3 05/01/21 07:11 Myelocytes # 0.0 K/mm3 05/01/21 07:11 Promyelocytes # 0.0 K/mm3 05/01/21 07:11 Blast Cells # 0.0 K/mm3 05/01/21 07:11 WBC Morphology Not Reportable 05/01/21 07:11 Hypersegmented Neuts Not Reportable 05/01/21 07:11 Hyposegmented Neuts Not Reportable 05/01/21 07:11 Hypogranular Neuts Not Reportable 05/01/21 07:11 Smudge Cells Not Reportable 05/01/21 07:11 Toxic Granulation Not Reportable 05/01/21 07:11 Toxic Vacuolation Not Reportable 05/01/21 07:11 Dohle Bodies Not Reportable 05/01/21 07:11 Pelger-Huet Anomaly Not Reportable 05/01/21 07:11 Peterson Rods Not Reportable 05/01/21 07:11 Platelet Estimate Consistent w auto 05/01/21 07:11 Clumped Platelets Not Reportable 05/01/21 07:11 Plt Clumps, EDTA Not Reportable 05/01/21 07:11 Large Platelets Not Reportable 05/01/21 07:11 Giant Platelets Not Reportable 05/01/21 07:11 Platelet Satelliting Not Reportable 05/01/21 07:11 Plt Morphology Comment Not Reportable 05/01/21 07:11 RBC Morphology Normal 05/01/21 07:11 Dimorphic RBCs Not Reportable 05/01/21 07:11 Polychromasia Not Reportable 05/01/21 07:11 Hypochromasia Not Reportable 05/01/21 07:11 Poikilocytosis Not Reportable 05/01/21 07:11 Anisocytosis Not Reportable 05/01/21 07:11 Microcytosis Not Reportable 05/01/21 07:11 Macrocytosis Not Reportable 05/01/21 07:11 Spherocytes Not Reportable 05/01/21 07:11 Pappenheimer Bodies Not Reportable 05/01/21 07:11 Sickle Cells Not Reportable 05/01/21 07:11 Target Cells Not Reportable 05/01/21 07:11 Tear Drop Cells Not Reportable 05/01/21 07:11 Ovalocytes Not Reportable 05/01/21 07:11 Helmet Cells Not Reportable 05/01/21 07:11 Law-Br[place]on Bodies Not Reportable 05/01/21 07:11 [place] Rings Not Reportable 05/01/21 07:11 [place] Cells Not Reportable 05/01/21 07:11 Bite Cells Not Reportable 05/01/21 07:11 Crenated Cell Not Reportable 05/01/21 07:11 Elliptocytes Not Reportable 05/01/21 07:11 Acanthocytes (Spur) Not Reportable 05/01/21 07:11 Rouleaux Not Reportable 05/01/21 07:11 Hemoglobin C Crystals Not Reportable 05/01/21 07:11 Schistocytes Not Reportable 05/01/21 07:11 Malaria parasites Not Reportable 05/01/21 07:11 James Bodies Not Reportable 05/01/21 07:11 Hem Pathologist Commnt No 05/01/21 07:11 PT 12.2 Sec. (12.2-14.9) 04/15/21 17:20 INR 0.91 (0.87-1.13) 04/15/21 17:20 APTT 31.8 Sec. (24.2-36.6) 04/15/21 17:20 ABG pH 7.466 (7.320-7.450) H 05/01/21 04:02 POC ABG pCO2 35.9 mmHg (32.0-48.0) 05/01/21 04:02 POC ABG pO2 61.4 mmHg (83-108) L 05/01/21 04:02 POC ABG HCO3 25.3 05/01/21 04:02 ABG O2 Saturation 91.9 (0-100) 05/01/21 04:02 POC ABG Base Excess 1.6 05/01/21 04:02 ABG Hemoglobin 9.0 (12.0-17.5) L 05/01/21 04:02 ABG Oxyhemoglobin 91.1 (94-98) L 05/01/21 04:02 ABG Methemoglobin 0.3 (0.0-1.5) 05/01/21 04:02 ABG Sodium 143.6 mmol/L (136.0-145.0) 05/01/21 04:02 ABG Potassium 3.5 mmol/L (3.40-4.50) 05/01/21 04:02 ABG Chloride 110.0 mmol/L (98-107) H 05/01/21 04:02 ABG Glucose 245 mg/dL (65-95) H 05/01/21 04:02 Carboxyhemoglobin 0.6 (0.5-1.5) 05/01/21 04:02 FiO2 % 30.0 05/01/21 04:02 Sodium 146 mmol/L (137-145) H 05/01/21 07:11 Potassium 3.7 mmol/L (3.6-5.0) 05/01/21 07:11 Chloride 108.4 mmol/L (98-107) H 05/01/21 07:11 Carbon Dioxide 26 mmol/L (22-30) 05/01/21 07:11 Anion Gap 15 mmol/L 05/01/21 07:11 BUN 122 mg/dL (7-17) H 05/01/21 07:11 Creatinine 3.4 mg/dL (0.6-1.2) H 05/01/21 07:11 Estimated GFR 16 ml/min 05/01/21 07:11 BUN/Creatinine Ratio 36 % 05/01/21 07:11 Glucose 235 mg/dL (65-100) H 05/01/21 07:11 POC Glucose 212 mg/dL (70-105) H 05/01/21 07:45 Lactic Acid 1.10 mmol/L (0.7-2.0) 04/26/21 09:30 Calcium 9.1 mg/dL (8.4-10.2) 05/01/21 07:11 Phosphorus 2.60 mg/dL (2.5-4.5) 04/22/21 08:00 Magnesium 2.10 mg/dL (1.7-2.3) 04/23/21 07:02 Total Bilirubin 0.30 mg/dL (0.1-1.2) 04/28/21 04:13 Direct Bilirubin < 0.2 mg/dL (0-0.2) 04/28/21 04:13 Indirect Bilirubin 0.1 mg/dL 04/28/21 04:13 AST 61 units/L (5-40) H 04/28/21 04:13 ALT 64 units/L (7-56) H 04/28/21 04:13 Alkaline Phosphatase 95 units/L (35-129) 04/28/21 04:13 Ammonia 46.0 umol/L (25-60) 04/15/21 17:20 Total Creatine Kinase 427 units/L (30-135) H 04/18/21 05:34 CK-MB (CK-2) 9.1 ng/mL (0.0-4.0) H 04/17/21 15:35 CK-MB (CK-2) Rel Index 1.4 (0-4) 04/17/21 15:35 Troponin T 0.065 ng/mL (0.00-0.029) H 04/20/21 03:32 NT-Pro-B Natriuret Pep 697.9 pg/mL (0-900) 04/15/21 17:20 Total Protein 6.2 g/dL (6.3-8.2) L 04/28/21 04:13 Albumin 2.6 g/dL (3.9-5) L 04/28/21 04:13 Albumin/Globulin Ratio 0.7 % 04/28/21 04:13 Triglycerides 103 mg/dL (2-149) 04/17/21 05:04 Cholesterol 122 mg/dL (50-199) 04/17/21 05:04 LDL Cholesterol Direct 55 mg/dL (50-130) 04/17/21 05:04 HDL Cholesterol 61 mg/dL (40-59) H 04/17/21 05:04 Cholesterol/HDL Ratio 2.00 % 04/17/21 05:04 Procalcitonin 0.20 ng/mL (<0.15) 04/16/21 19:01 TSH 14.190 mlU/mL (0.270-4.200) H 04/15/21 17:20 Thyroxine (T4) 4.1 ug/dL (4.0-12.0) 04/16/21 19:01 Free T3 Index 1.1 pg/mL (2.3-4.2) L 04/16/21 19:01 Arterial Blood Glucose 245 mg/dL (65-95) H 05/01/21 04:02 Arterial Blood Ionized Calcium 5.0 mg/dL (4.6-5.3) 05/01/21 04:02 Urine Color Yellow (Yellow) 04/30/21 17:45 Urine Turbidity Cloudy (Clear) 04/30/21 17:45 Urine pH 5.0 (5.0-7.0) 04/30/21 17:45 Ur Specific [place] 1.016 (1.003-1.030) 04/30/21 17:45 Urine Protein 100 mg/dl mg/dL (Negative) 04/30/21 17:45 Urine Glucose (UA) Neg mg/dL (Negative) 04/30/21 17:45 Urine Ketones Neg mg/dL (Negative) 04/30/21 17:45 Urine Blood Mod (Negative) 04/30/21 17:45 Urine Nitrite Neg (Negative) 04/30/21 17:45 Urine Bilirubin Neg (Negative) 04/30/21 17:45 Urine Urobilinogen < 2.0 mg/dL (<2.0) 04/30/21 17:45 Ur Leukocyte Esterase Mod (Negative) 04/30/21 17:45 Urine WBC (Auto) 48.0 /HPF (0.0-6.0) H 04/30/21 17:45 Urine RBC (Auto) 103.0 /HPF (0.0-6.0) 04/30/21 17:45 U Epithel Cells (Auto) < 1.0 /HPF (0-13.0) 04/16/21 00:09 Urine Bacteria (Auto) 1+ /HPF (Negative) 04/16/21 00:09 Urine Mucus Few /HPF 04/30/21 17:45 Urine Yeast (Budding) 3+ /HPF 04/30/21 17:45 Urine Creatinine 24.4 mg/dL (0.1-20.0) H 04/16/21 00:12 Urine Sodium 97 mmol/L 04/16/21 00:12 Random Vancomycin 15.5 ug/mL (0-40.0) 04/27/21 07:52 Salicylates 4.1 mg/dL (2.8-20.0) 04/15/21 17:20 Acetaminophen 5.0 ug/mL (10.0-30.0) L 04/15/21 17:20 Plasma/Serum Alcohol 0.02 % (0-0.07) 04/15/21 17:20 Coronavirus (PCR) Negative (Negative) 04/16/21 Unknown Microbiology: Microbiology 04/30/21 16:07 Peripheral/Venous Blood Culture - Preliminary Culture in Progress 04/30/21 16:07 Peripheral/Venous Blood Culture - Preliminary Culture in Progress 04/26/21 09:30 Peripheral/Venous Blood Culture - Preliminary NO GROWTH AFTER 4 DAYS 04/26/21 09:30 Peripheral/Venous Blood Culture - Preliminary NO GROWTH AFTER 4 DAYS Kerr/IV: Voiding Method Indwelling Catheter Active Medications - Current Medications Current Medications: Generic Name Dose Route Start Last Admin Trade Name Freq PRN Reason Stop Dose Admin Acetaminophen 650 mg 04/15/21 19:11 04/30/21 20:14 Acetaminophen 325 Mg Tab PO 650 mg Q6H PRN Administration Pain MILD(1-3)/Fever >100.5/SEXTON Albuterol/Ipratropium 1 ampul 04/24/21 14:00 05/01/21 09:02 Ipratropium/Albuterol Sulfate 3 Ml Ampul.Neb IH 1 ampul Q6HRT WOLFGANG Administration Amlodipine Besylate 10 mg 04/25/21 10:00 05/01/21 09:09 Amlodipine 10 Mg Tab PO 10 mg DAILY WOLFGANG Administration Lipase/Protease/Amylase 1 each 04/16/21 12:52 Lipase 10,500/Protease 25,000/Amylase 43,750 (Units) Dr Simpson FEEDTUBE PRN PRN For Clogged Feeding Tube Aspirin 81 mg 04/25/21 10:00 05/01/21 09:10 Aspirin 81 Mg Tab Chew PO 81 mg QDAY WOLFGANG Administration Bisacodyl 10 mg 04/17/21 11:01 04/28/21 21:04 Bisacodyl 10 Mg Rect Supp NV 10 mg QDAY PRN Administration Constipation Brimonidine Tartrate 1 drops 04/17/21 22:00 05/01/21 11:47 Brimonidine 0.15% Ophth Soln OU 1 drops BID WOLFGANG Administration Docusate Sodium 100 mg 04/29/21 15:00 05/01/21 09:10 Docusate Sodium 100 Mg/10 Ml Oral Liqd PO 100 mg BID WOLFGANG Administration Epinephrine 0.5 ml 04/21/21 12:56 Epinephrine Racemic 2.25% 0.5ml Nebu IH Q4HRT PRN Shortness Of Breath Famotidine 20 mg 04/17/21 10:00 05/01/21 09:09 Famotidine 20 Mg Tab PO 20 mg DAILY WOLFGANG Administration Fentanyl 50 mcg 04/24/21 13:03 Fentanyl 100 Mcg/2 Ml Inj IV Q10MIN PRN ANALGESIA Heparin Sodium (Porcine) 5,000 unit 04/15/21 22:00 05/01/21 09:09 Heparin 5,000 Unit/1 Ml Vial SUB-Q 5,000 unit Q12HR WOLFGANG Administration Hydralazine HCl 10 mg 04/16/21 18:00 04/24/21 05:25 Hydralazine 20 Mg/1 Ml Inj IV 10 mg Q4HR PRN Administration Hypertension Hydralazine HCl 100 mg 04/21/21 14:00 05/01/21 07:41 Hydralazine 100 Mg Tab PO 100 mg TID WOLFGANG Administration Hydrophilic Ointment 1 applic 04/15/21 17:24 Lip Therapy Vaseline TP Q2HR PRN Dry Lips Fentanyl Citrate 2,000 mcg in 100 mls @ 4.765 mls/hr 04/24/21 14:00 04/25/21 09:15 Fentanyl Drip Premix IV 0 mcg/kg/hr TITR WOLFGANG 0 mls/hr Titration Protocol 1 MCG/KG/HR Propofol 1,000 mg in 100 mls @ 2.859 mls/hr 04/24/21 14:00 04/25/21 09:10 Diprivan 10 Mg/Ml IV 0 mcg/kg/min TITR WOLFGANG 0 mls/hr Titration Protocol 5 MCG/KG/MIN Cefepime HCl 2 gm in 100 mls @ 200 mls/hr 04/27/21 10:00 05/01/21 09:10 Cefepime/Ns 2 Gm/100 Ml IV 200 mls/hr Q24H WOLFGANG Administration Protocol Metronidazole 500 mg in 100 mls @ 100 mls/hr 04/30/21 12:00 05/01/21 11:37 Flagyl 500 Mg/100 Ml IV 100 mls/hr Q8H WOLFGANG Administration Protocol Insulin Glargine 52 units 05/02/21 08:00 Insulin Glargine 100 Units/Ml SUB-Q QAMDIAB [facility] Insulin Human Lispro 0 unit 04/16/21 15:00 05/01/21 11:36 Insulin Lispro 100 Unit/Ml SUB-Q 6 unit Q6HR WOLFGANG Administration Protocol Latanoprost 1 drops 04/17/21 18:00 04/30/21 17:31 Latanoprost 0.005% Ophth Soln 2.5 Ml OU 1 drops QPM WOLFGANG Administration Levothyroxine Sodium 25 mcg 04/19/21 06:00 05/01/21 06:10 Levothyroxine 25 Mcg Tab PO 25 mcg DAILY@0600 WOLFGANG Administration Metoprolol Tartrate 25 mg 04/19/21 10:00 05/01/21 09:09 Metoprolol Tartrate 25 Mg Tab PO 25 mg BID WOLFGANG Administration Multi-Ingred Cream/Lotion/Oil/Oint 1 applic 04/15/21 17:24 04/26/21 10:05 Mineral Oil/Petrolatum, White Ophth Oint 3.5 Gm OU 1 applic Q4HR PRN Administration Dry Eye(s) Pravastatin Sodium 20 mg 04/19/21 22:00 04/30/21 21:42 Pravastatin 20 Mg Tab PO 20 mg QHS WOLFGANG Administration Scopolamine 1 each 04/20/21 18:00 04/29/21 09:35 Scopolamine Transdermal Patch 72 Hr TD 1 each Q3D WOLFGANG Administration Simple Syrup 15 ml 04/16/21 12:52 Simple Syrup 15 Ml FEEDTUBE PRN PRN Hypoglycemia Simple Syrup 30 ml 04/16/21 12:52 Simple Syrup 15 Ml FEEDTUBE PRN PRN Hypoglycemia Sodium Bicarbonate 325 mg 04/16/21 12:52 Sodium Bicarbonate 325 Mg Tab FEEDTUBE PRN PRN For Clogged Feeding Tube Sodium Chloride 10 ml 04/15/21 22:00 05/01/21 09:08 Sodium Chloride 0.9% 10 Ml Flush Syringe IV 10 ml BID WOLFGANG Administration Sodium Chloride 10 ml 04/15/21 19:11 04/24/21 05:27 Sodium Chloride 0.9% 10 Ml Flush Syringe IV 10 ml PRN PRN Administration LINE FLUSH Tamsulosin HCl 0.4 mg 04/25/21 14:00 05/01/21 09:10 Tamsulosin 0.4 Mg Cap PO 0.4 mg QDAY WOLFGANG Administration Timolol Maleate 1 drops 04/19/21 10:00 05/01/21 09:10 Timolol 0.5% Ophth Soln 5 Ml OU 1 drops QDAY WOLFGANG Administration Nutrition/Malnutrition Assess - Dietary Evaluation Nutrition/Malnutrition Findings: Nutrition Notes Start: 04/16/21 12:31 Freq: Status: Active Protocol: Document 04/30/21 09:36 LP (Rec: 04/30/21 09:39 LP [email or web address]) Nutrition Notes Initial or Follow up Reassessment Current Diagnosis Acute Kidney Injury,Coronary Artery Disease,Diabetes, Hypertension Other Pertinent Diagnosis UTI, acute metabolic encephalopathy Current Diet Glucerna 1.2 at 50ml/hr Labs/Tests BUN 118 Cr 3.3 BG 263 Pertinent Medications Reviewed Height 5 ft 6 in Weight 93 kg [place] Body Weight (kg) 59.09 BMI 33.0 Weight Status Obese Subjective/Other Information Pt tolerating TF at goal rate. Pt on vent. Percent of energy/protein needs met: 100% energy 61% pro Burn Absent Trauma Absent Difficulty In Swallowing Current % PO Negligible Minimum of two criteria No physical signs of malnutrition #1 Nutrition Diagnosis Inadequate oral intake Diagnosis Progress(for reassessment Continues documentation) Is patient on ventilator? Yes Is Patient Ambulatory and/or Out of Bed No REE-([facility]-confined to bed) 1700.760 Kcal/Kg value to use for calculation 15 Approximate Energy Requirements Using 1395 kcal/Kg Calculation Used for Recommendations Kcal/kg Additional Notes Pro needs >2g/kg IBW: >118g/ day Fluid needs 1ml/kcal Nutrition Intervention Change Diet Order: TF Nutrition Support: Continue Glucerna 1.2 at 50ml/ hr with 50ml water flush q4h. Kcal 1,440 Protein (gm) 72 Fluid (mL) 966 Goal #1 TF tolerance Goal #2 TF to meet energy and pro needs as best possible Anticipated Discharge Needs: unable to determine at this time Follow-Up By: 05/07/21 Additional Comments Follow for stable TF <RUDOLPH ANDREA - Last Filed: 05/02/21 07:01> Assessment and Plan Assessment and plan: I saw and evaluated the patient. I agree with the findings and the plan of care as documented in the Nurse Practitioner's~note, with the following corrections and additions. Hospitalist Physical - Constitutional Vitals: Temp Pulse Resp BP Pulse Ox 99.4 F 78 16 146/92 97 05/02/21 03:34 05/02/21 04:30 05/02/21 04:30 05/02/21 04:30 05/02/21 04:30 HEART Score - HEART Score Troponin: Troponin T 0.065 ng/mL (0.00-0.029) H 04/20/21 03:32 Results - Labs CBC & Chem 7: 05/01/21 07:11 05/01/21 07:11 Labs: Laboratory Last Values WBC 12.3 K/mm3 (4.5-11.0) H 05/01/21 07:11 RBC 2.83 M/mm3 (3.65-5.03) L 05/01/21 07:11 Hgb 8.8 gm/dl (10.1-14.3) L 05/01/21 07:11 Hct 27.3 % (30.3-42.9) L 05/01/21 07:11 MCV 96 fl (79-97) 05/01/21 07:11 MCH 31 pg (28-32) 05/01/21 07:11 MCHC 32 % (30-34) 05/01/21 07:11 RDW 15.2 % (13.2-15.2) 05/01/21 07:11 Plt Count 298 K/mm3 (140-440) 05/01/21 07:11 Lymph % (Auto) 12.8 % (13.4-35.0) L 04/15/21 17:20 [place] % (Auto) 4.1 % (0.0-7.3) 04/15/21 17:20 Eos % (Auto) 0.3 % (0.0-4.3) 04/15/21 17:20 Baso % (Auto) 0.4 % (0.0-1.8) 04/15/21 17:20 Lymph # (Auto) 1.4 K/mm3 (1.2-5.4) 04/15/21 17:20 [place] # (Auto) 0.5 K/mm3 (0.0-0.8) 04/15/21 17:20 Eos # (Auto) 0.0 K/mm3 (0.0-0.4) 04/15/21 17:20 Baso # (Auto) 0.0 K/mm3 (0.0-0.1) 04/15/21 17:20 Add Manual Diff Complete 05/01/21 07:11 Total Counted 100 05/01/21 07:11 Seg Neutrophils % 82.4 % (40.0-70.0) H 04/15/21 17:20 Seg Neuts % (Manual) 80.0 % (40.0-70.0) H 05/01/21 07:11 Band Neutrophils % 7.0 % 05/01/21 07:11 Lymphocytes % (Manual) 5.0 % (13.4-35.0) L 05/01/21 07:11 Monocytes % (Manual) 6.0 % (0.0-7.3) 05/01/21 07:11 Eosinophils % (Manual) 1.0 % (0.0-4.3) 05/01/21 07:11 Metamyelocytes % 1.0 % 05/01/21 07:11 Nucleated RBC % Not Reportable 05/01/21 07:11 Seg Neutrophils # 9.3 K/mm3 (1.8-7.7) H 04/15/21 17:20 Seg Neutrophils # Man 9.8 K/mm3 (1.8-7.7) H 05/01/21 07:11 Band Neutrophils # 0.9 K/mm3 05/01/21 07:11 Lymphocytes # (Manual) 0.6 K/mm3 (1.2-5.4) L 05/01/21 07:11 Abs React Lymphs (Man) 0.0 K/mm3 05/01/21 07:11 Monocytes # (Manual) 0.7 K/mm3 (0.0-0.8) 05/01/21 07:11 Eosinophils # (Manual) 0.1 K/mm3 (0.0-0.4) 05/01/21 07:11 Basophils # (Manual) 0.0 K/mm3 (0.0-0.1) 05/01/21 07:11 Metamyelocytes # 0.1 K/mm3 05/01/21 07:11 Myelocytes # 0.0 K/mm3 05/01/21 07:11 Promyelocytes # 0.0 K/mm3 05/01/21 07:11 Blast Cells # 0.0 K/mm3 05/01/21 07:11 WBC Morphology Not Reportable 05/01/21 07:11 Hypersegmented Neuts Not Reportable 05/01/21 07:11 Hyposegmented Neuts Not Reportable 05/01/21 07:11 Hypogranular Neuts Not Reportable 05/01/21 07:11 Smudge Cells Not Reportable 05/01/21 07:11 Toxic Granulation Not Reportable 05/01/21 07:11 Toxic Vacuolation Not Reportable 05/01/21 07:11 Dohle Bodies Not Reportable 05/01/21 07:11 Pelger-Huet Anomaly Not Reportable 05/01/21 07:11 Peterson Rods Not Reportable 05/01/21 07:11 Platelet Estimate Consistent w auto 05/01/21 07:11 Clumped Platelets Not Reportable 05/01/21 07:11 Plt Clumps, EDTA Not Reportable 05/01/21 07:11 Large Platelets Not Reportable 05/01/21 07:11 Giant Platelets Not Reportable 05/01/21 07:11 Platelet Satelliting Not Reportable 05/01/21 07:11 Plt Morphology Comment Not Reportable 05/01/21 07:11 RBC Morphology Normal 05/01/21 07:11 Dimorphic RBCs Not Reportable 05/01/21 07:11 Polychromasia Not Reportable 05/01/21 07:11 Hypochromasia Not Reportable 05/01/21 07:11 Poikilocytosis Not Reportable 05/01/21 07:11 Anisocytosis Not Reportable 05/01/21 07:11 Microcytosis Not Reportable 05/01/21 07:11 Macrocytosis Not Reportable 05/01/21 07:11 Spherocytes Not Reportable 05/01/21 07:11 Pappenheimer Bodies Not Reportable 05/01/21 07:11 Sickle Cells Not Reportable 05/01/21 07:11 Target Cells Not Reportable 05/01/21 07:11 Tear Drop Cells Not Reportable 05/01/21 07:11 Ovalocytes Not Reportable 05/01/21 07:11 Helmet Cells Not Reportable 05/01/21 07:11 Law-Br[place]on Bodies Not Reportable 05/01/21 07:11 [place] Rings Not Reportable 05/01/21 07:11 [place] Cells Not Reportable 05/01/21 07:11 Bite Cells Not Reportable 05/01/21 07:11 Crenated Cell Not Reportable 05/01/21 07:11 Elliptocytes Not Reportable 05/01/21 07:11 Acanthocytes (Spur) Not Reportable 05/01/21 07:11 Rouleaux Not Reportable 05/01/21 07:11 Hemoglobin C Crystals Not Reportable 05/01/21 07:11 Schistocytes Not Reportable 05/01/21 07:11 Malaria parasites Not Reportable 05/01/21 07:11 James Bodies Not Reportable 05/01/21 07:11 Hem Pathologist Commnt No 05/01/21 07:11 PT 12.2 Sec. (12.2-14.9) 04/15/21 17:20 INR 0.91 (0.87-1.13) 04/15/21 17:20 APTT 31.8 Sec. (24.2-36.6) 04/15/21 17:20 ABG pH 7.466 (7.320-7.450) H 05/01/21 04:02 POC ABG pCO2 35.9 mmHg (32.0-48.0) 05/01/21 04:02 POC ABG pO2 61.4 mmHg (83-108) L 05/01/21 04:02 POC ABG HCO3 25.3 05/01/21 04:02 ABG O2 Saturation 91.9 (0-100) 05/01/21 04:02 POC ABG Base Excess 1.6 05/01/21 04:02 ABG Hemoglobin 9.0 (12.0-17.5) L 05/01/21 04:02 ABG Oxyhemoglobin 91.1 (94-98) L 05/01/21 04:02 ABG Methemoglobin 0.3 (0.0-1.5) 05/01/21 04:02 ABG Sodium 143.6 mmol/L (136.0-145.0) 05/01/21 04:02 ABG Potassium 3.5 mmol/L (3.40-4.50) 05/01/21 04:02 ABG Chloride 110.0 mmol/L (98-107) H 05/01/21 04:02 ABG Glucose 245 mg/dL (65-95) H 05/01/21 04:02 Carboxyhemoglobin 0.6 (0.5-1.5) 05/01/21 04:02 FiO2 % 30.0 05/01/21 04:02 Sodium 146 mmol/L (137-145) H 05/01/21 07:11 Potassium 3.7 mmol/L (3.6-5.0) 05/01/21 07:11 Chloride 108.4 mmol/L (98-107) H 05/01/21 07:11 Carbon Dioxide 26 mmol/L (22-30) 05/01/21 07:11 Anion Gap 15 mmol/L 05/01/21 07:11 BUN 122 mg/dL (7-17) H 05/01/21 07:11 Creatinine 3.4 mg/dL (0.6-1.2) H 05/01/21 07:11 Estimated GFR 16 ml/min 05/01/21 07:11 BUN/Creatinine Ratio 36 % 05/01/21 07:11 Glucose 235 mg/dL (65-100) H 05/01/21 07:11 POC Glucose 163 mg/dL (70-105) H 05/02/21 05:12 Lactic Acid 1.10 mmol/L (0.7-2.0) 04/26/21 09:30 Calcium 9.1 mg/dL (8.4-10.2) 05/01/21 07:11 Phosphorus 2.60 mg/dL (2.5-4.5) 04/22/21 08:00 Magnesium 2.10 mg/dL (1.7-2.3) 04/23/21 07:02 Total Bilirubin 0.30 mg/dL (0.1-1.2) 04/28/21 04:13 Direct Bilirubin < 0.2 mg/dL (0-0.2) 04/28/21 04:13 Indirect Bilirubin 0.1 mg/dL 04/28/21 04:13 AST 61 units/L (5-40) H 04/28/21 04:13 ALT 64 units/L (7-56) H 04/28/21 04:13 Alkaline Phosphatase 95 units/L (35-129) 04/28/21 04:13 Ammonia 46.0 umol/L (25-60) 04/15/21 17:20 Total Creatine Kinase 427 units/L (30-135) H 04/18/21 05:34 CK-MB (CK-2) 9.1 ng/mL (0.0-4.0) H 04/17/21 15:35 CK-MB (CK-2) Rel Index 1.4 (0-4) 04/17/21 15:35 Troponin T 0.065 ng/mL (0.00-0.029) H 04/20/21 03:32 NT-Pro-B Natriuret Pep 697.9 pg/mL (0-900) 04/15/21 17:20 Total Protein 6.2 g/dL (6.3-8.2) L 04/28/21 04:13 Albumin 2.6 g/dL (3.9-5) L 04/28/21 04:13 Albumin/Globulin Ratio 0.7 % 04/28/21 04:13 Triglycerides 103 mg/dL (2-149) 04/17/21 05:04 Cholesterol 122 mg/dL (50-199) 04/17/21 05:04 LDL Cholesterol Direct 55 mg/dL (50-130) 04/17/21 05:04 HDL Cholesterol 61 mg/dL (40-59) H 04/17/21 05:04 Cholesterol/HDL Ratio 2.00 % 04/17/21 05:04 Procalcitonin 0.20 ng/mL (<0.15) 04/16/21 19:01 TSH 14.190 mlU/mL (0.270-4.200) H 04/15/21 17:20 Thyroxine (T4) 4.1 ug/dL (4.0-12.0) 04/16/21 19:01 Free T3 Index 1.1 pg/mL (2.3-4.2) L 04/16/21 19:01 Arterial Blood Glucose 245 mg/dL (65-95) H 05/01/21 04:02 Arterial Blood Ionized Calcium 5.0 mg/dL (4.6-5.3) 05/01/21 04:02 Urine Color Yellow (Yellow) 04/30/21 17:45 Urine Turbidity Cloudy (Clear) 04/30/21 17:45 Urine pH 5.0 (5.0-7.0) 04/30/21 17:45 Ur Specific [place] 1.016 (1.003-1.030) 04/30/21 17:45 Urine Protein 100 mg/dl mg/dL (Negative) 04/30/21 17:45 Urine Glucose (UA) Neg mg/dL (Negative) 04/30/21 17:45 Urine Ketones Neg mg/dL (Negative) 04/30/21 17:45 Urine Blood Mod (Negative) 04/30/21 17:45 Urine Nitrite Neg (Negative) 04/30/21 17:45 Urine Bilirubin Neg (Negative) 04/30/21 17:45 Urine Urobilinogen < 2.0 mg/dL (<2.0) 04/30/21 17:45 Ur Leukocyte Esterase Mod (Negative) 04/30/21 17:45 Urine WBC (Auto) 48.0 /HPF (0.0-6.0) H 04/30/21 17:45 Urine RBC (Auto) 103.0 /HPF (0.0-6.0) 04/30/21 17:45 U Epithel Cells (Auto) < 1.0 /HPF (0-13.0) 04/16/21 00:09 Urine Bacteria (Auto) 1+ /HPF (Negative) 04/16/21 00:09 Urine Mucus Few /HPF 04/30/21 17:45 Urine Yeast (Budding) 3+ /HPF 04/30/21 17:45 Urine Creatinine 24.4 mg/dL (0.1-20.0) H 04/16/21 00:12 Urine Sodium 97 mmol/L 04/16/21 00:12 Random Vancomycin 15.5 ug/mL (0-40.0) 04/27/21 07:52 Salicylates 4.1 mg/dL (2.8-20.0) 04/15/21 17:20 Acetaminophen 5.0 ug/mL (10.0-30.0) L 04/15/21 17:20 Plasma/Serum Alcohol 0.02 % (0-0.07) 04/15/21 17:20 Coronavirus (PCR) Negative (Negative) 04/16/21 Unknown Microbiology: Microbiology 04/30/21 16:07 Peripheral/Venous Blood Culture - Preliminary NO GROWTH AFTER 24 HOURS 04/30/21 16:07 Peripheral/Venous Blood Culture - Preliminary NO GROWTH AFTER 24 HOURS 04/26/21 09:30 Peripheral/Venous Blood Culture - Final NO GROWTH AFTER 5 DAYS 04/26/21 09:30 Peripheral/Venous Blood Culture - Final NO GROWTH AFTER 5 DAYS 04/30/21 17:45 Urine,Clean Catch Urine Culture - Preliminary Kerr/IV: Voiding Method Indwelling Catheter Active Medications - Current Medications Current Medications: Generic Name Dose Route Start Last Admin Trade Name Freq PRN Reason Stop Dose Admin Acetaminophen 650 mg 04/15/21 19:11 04/30/21 20:14 Acetaminophen 325 Mg Tab PO 650 mg Q6H PRN Administration Pain MILD(1-3)/Fever >100.5/SEXTON Albuterol/Ipratropium 1 ampul 04/24/21 14:00 05/02/21 03:07 Ipratropium/Albuterol Sulfate 3 Ml Ampul.Neb IH 1 ampul Q6HRT WOLFGANG Administration Amlodipine Besylate 10 mg 04/25/21 10:00 05/01/21 09:09 Amlodipine 10 Mg Tab PO 10 mg DAILY WOLFGANG Administration Lipase/Protease/Amylase 1 each 04/16/21 12:52 Lipase 10,500/Protease 25,000/Amylase 43,750 (Units) Dr Simpson FEEDTUBE PRN PRN For Clogged Feeding Tube Aspirin 81 mg 04/25/21 10:00 05/01/21 09:10 Aspirin 81 Mg Tab Chew PO 81 mg QDAY WOLFGANG Administration Bisacodyl 10 mg 04/17/21 11:01 04/28/21 21:04 Bisacodyl 10 Mg Rect Supp NV 10 mg QDAY PRN Administration Constipation Brimonidine Tartrate 1 drops 04/17/21 22:00 05/01/21 21:42 Brimonidine 0.15% Ophth Soln OU 1 drops BID WOLFGANG Administration Docusate Sodium 100 mg 04/29/21 15:00 05/01/21 21:50 Docusate Sodium 100 Mg/10 Ml Oral Liqd PO 100 mg BID WOLFGANG Administration Epinephrine 0.5 ml 04/21/21 12:56 Epinephrine Racemic 2.25% 0.5ml Nebu IH Q4HRT PRN Shortness Of Breath Famotidine 20 mg 04/17/21 10:00 05/01/21 09:09 Famotidine 20 Mg Tab PO 20 mg DAILY WOLFGANG Administration Fentanyl 50 mcg 04/24/21 13:03 Fentanyl 100 Mcg/2 Ml Inj IV Q10MIN PRN ANALGESIA Heparin Sodium (Porcine) 5,000 unit 04/15/21 22:00 05/01/21 21:38 Heparin 5,000 Unit/1 Ml Vial SUB-Q 5,000 unit Q12HR WOLFGANG Administration Hydralazine HCl 10 mg 04/16/21 18:00 04/24/21 05:25 Hydralazine 20 Mg/1 Ml Inj IV 10 mg Q4HR PRN Administration Hypertension Hydralazine HCl 100 mg 04/21/21 14:00 05/01/21 21:38 Hydralazine 100 Mg Tab PO 100 mg TID WOLFGANG Administration Hydrophilic Ointment 1 applic 04/15/21 17:24 Lip Therapy Vaseline TP Q2HR PRN Dry Lips Fentanyl Citrate 2,000 mcg in 100 mls @ 4.765 mls/hr 04/24/21 14:00 04/25/21 09:15 Fentanyl Drip Premix IV 0 mcg/kg/hr TITR WOLFGANG 0 mls/hr Titration Protocol 1 MCG/KG/HR Propofol 1,000 mg in 100 mls @ 2.859 mls/hr 04/24/21 14:00 04/25/21 09:10 Diprivan 10 Mg/Ml IV 0 mcg/kg/min TITR WOLFGANG 0 mls/hr Titration Protocol 5 MCG/KG/MIN Cefepime HCl 2 gm in 100 mls @ 200 mls/hr 04/27/21 10:00 05/01/21 09:10 Cefepime/Ns 2 Gm/100 Ml IV 200 mls/hr Q24H WOLFGANG Administration Protocol Metronidazole 500 mg in 100 mls @ 100 mls/hr 04/30/21 12:00 05/02/21 04:11 Flagyl 500 Mg/100 Ml IV 100 mls/hr Q8H [facility] Administration Protocol Insulin Glargine 52 units 05/02/21 08:00 Insulin Glargine 100 Units/Ml SUB-Q QAMDIAB WOLFGANG Insulin Human Lispro 0 unit 04/16/21 15:00 05/02/21 06:35 Insulin Lispro 100 Unit/Ml SUB-Q 3 unit Q6HR [facility] Administration Protocol Latanoprost 1 drops 04/17/21 18:00 05/01/21 18:27 Latanoprost 0.005% Ophth Soln 2.5 Ml OU 1 drops QPM WOLFGANG Administration Levothyroxine Sodium 25 mcg 04/19/21 06:00 05/02/21 05:03 Levothyroxine 25 Mcg Tab PO 25 mcg DAILY@0600 WOLFGANG Administration Metoprolol Tartrate 25 mg 04/19/21 10:00 05/01/21 21:38 Metoprolol Tartrate 25 Mg Tab PO 25 mg BID WOLFGANG Administration Multi-Ingred Cream/Lotion/Oil/Oint 1 applic 04/15/21 17:24 04/26/21 10:05 Mineral Oil/Petrolatum, White Ophth Oint 3.5 Gm OU 1 applic Q4HR PRN Administration Dry Eye(s) Pravastatin Sodium 20 mg 04/19/21 22:00 05/01/21 21:39 Pravastatin 20 Mg Tab PO 20 mg QHS WOLFGANG Administration Scopolamine 1 each 04/20/21 18:00 04/29/21 09:35 Scopolamine Transdermal Patch 72 Hr TD 1 each Q3D WOLFGANG Administration Simple Syrup 15 ml 04/16/21 12:52 Simple Syrup 15 Ml FEEDTUBE PRN PRN Hypoglycemia Simple Syrup 30 ml 04/16/21 12:52 Simple Syrup 15 Ml FEEDTUBE PRN PRN Hypoglycemia Sodium Bicarbonate 325 mg 04/16/21 12:52 Sodium Bicarbonate 325 Mg Tab FEEDTUBE PRN PRN For Clogged Feeding Tube Sodium Chloride 10 ml 04/15/21 22:00 05/01/21 21:40 Sodium Chloride 0.9% 10 Ml Flush Syringe IV 10 ml BID WOLFGANG Administration Sodium Chloride 10 ml 04/15/21 19:11 04/24/21 05:27 Sodium Chloride 0.9% 10 Ml Flush Syringe IV 10 ml PRN PRN Administration LINE FLUSH Tamsulosin HCl 0.4 mg 04/25/21 14:00 05/01/21 09:10 Tamsulosin 0.4 Mg Cap PO 0.4 mg QDAY WOLFGANG Administration Timolol Maleate 1 drops 04/19/21 10:00 05/01/21 09:10 Timolol 0.5% Ophth Soln 5 Ml OU 1 drops QDAY WOLFGANG Administration Nutrition/Malnutrition Assess - Dietary Evaluation Nutrition/Malnutrition Findings: Nutrition Notes Start: 04/16/21 12:31 Freq: Status: Active Protocol: Document 04/30/21 09:36 LP (Rec: 04/30/21 09:39 LP [id number]) Nutrition Notes Initial or Follow up Reassessment Current Diagnosis Acute Kidney Injury,Coronary Artery Disease,Diabetes, Hypertension Other Pertinent Diagnosis UTI, acute metabolic encephalopathy Current Diet Glucerna 1.2 at 50ml/hr Labs/Tests BUN 118 Cr 3.3 BG 263 Pertinent Medications Reviewed Height 5 ft 6 in Weight 93 kg [place] Body Weight (kg) 59.09 BMI 33.0 Weight Status Obese Subjective/Other Information Pt tolerating TF at goal rate. Pt on vent. Percent of energy/protein needs met: 100% energy 61% pro Burn Absent Trauma Absent Difficulty In Swallowing Current % PO Negligible Minimum of two criteria No physical signs of malnutrition #1 Nutrition Diagnosis Inadequate oral intake Diagnosis Progress(for reassessment Continues documentation) Is patient on ventilator? Yes Is Patient Ambulatory and/or Out of Bed No REE-([facility]-confined to bed) 1700.760 Kcal/Kg value to use for calculation 15 Approximate Energy Requirements Using 1395 kcal/Kg Calculation Used for Recommendations Kcal/kg Additional Notes Pro needs >2g/kg IBW: >118g/ day Fluid needs 1ml/kcal Nutrition Intervention Change Diet Order: TF Nutrition Support: Continue Glucerna 1.2 at 50ml/ hr with 50ml water flush q4h. Kcal 1,440 Protein (gm) 72 Fluid (mL) 966 Goal #1 TF tolerance Goal #2 TF to meet energy and pro needs as best possible Anticipated Discharge Needs: unable to determine at this time Follow-Up By: 05/07/21 Additional Comments Follow for stable TF
[2021-05-01] MEDS: LATANOPROST 0.005% OPHTH SOLN 2.5 ML OU SCH (18:27)
[2021-05-01] MEDS: PRAVASTATIN 20 MG TAB PO SCH (21:39)
[2021-05-02] MEDS: INSULIN LISPRO 100 UNIT/ML SUB-Q SCH ×4 (00:12→18:02)
[2021-05-02] MEDS: IPRATROPIUM/ALBUTEROL SULFATE 3 ML AMPUL.NEB IH SCH ×4 (03:07→19:59)
[2021-05-02] MEDS: metroNIDAZOLE/NS 500 MG/100 ML 500 MG/100 ML BAG IV SCH ×3 (04:11→20:30)
[2021-05-02] MEDS: LEVOTHYROXINE 25 MCG TAB PO SCH (05:03)
[2021-05-02] MEDS: INSULIN GLARGINE 100 UNITS/ML SUB-Q SCH (08:06)
[2021-05-02] MEDS: hydrALAZINE 100 MG TAB PO SCH ×3 (08:07→21:54)
[2021-05-02] MEDS: CEFEPIME/NS 2 GM/100 ML 2 GM/100 ML BAG IV SCH (09:05)
[2021-05-02] MEDS: HEPARIN 5,000 UNIT/1 ML VIAL SUB-Q SCH ×2 (09:05→21:54)
[2021-05-02] MEDS: FAMOTIDINE 20 MG TAB PO SCH (09:06)
[2021-05-02] MEDS: MINERAL OIL/PETROLATUM, WHITE OPHTH OINT 3.5 GM OU PRN (09:06)
[2021-05-02] MEDS: TAMSULOSIN 0.4 MG CAP PO SCH (09:06)
[2021-05-02] MEDS: METOPROLOL TARTRATE 25 MG TAB PO SCH ×2 (09:06→21:53)
[2021-05-02] MEDS: DOCUSATE SODIUM 100 MG/10 ML ORAL LIQD PO SCH ×2 (09:06→21:52)
[2021-05-02] MEDS: BRIMONIDINE 0.15% OPHTH SOLN OU SCH ×2 (09:09→21:56)
[2021-05-02] MEDS: TIMOLOL 0.5% OPHTH SOLN 5 ML OU SCH (09:11)
[2021-05-02] MEDS: SCOPOLAMINE TRANSDERMAL PATCH 72 HR TD SCH (09:14)
[2021-05-02] MEDS: ASPIRIN 81 MG TAB CHEW PO SCH (09:14)
[2021-05-02] MEDS: amLODIPine 10 MG TAB PO SCH (09:14)
--- NOTE | 2021-05-02 09:35 | Progress Note ---
Assessment and Plan 1. Acute kidney injury: Vasomotor ROJELIO. ATN likely. Renal US negative for hydro. Baseline renal function is unknown. Monitor renal function. Non-oliguric. Pt has hui catheter. Creatinine leveled off. Renal prognosis is guarded. Avoid nephrotoxic agents. Meds dosage based on GFR. Monitor for PHARMACOLOGY ASSOCIATE needs. 2. FEN: Hypokalemia, replete K as needed, monitor. Hypernatremia, monitor. Monitor lytes and volume status. 3. Acute hypoxemic respiratory failure: Extubated, re-intubated 04/24. 4. Acute encephalopathy: Hypoglycemia. MRI brain negative. Seen by Neuro. 5. Pseudomonas UTI. 6. Hypertension. 7. DM type 2. 8. Mild rhabdomyolysis. 9. Mildly complex R renal cyst. Subjective: Patient was seen and examined at the bedside. Examination: General appearance: well-developed, appears stated age, intubated on vent HEENT: BRUCE, atraumatic Neck: trachea midline Respiratory: Coarse breath sounds heard Heart: S1S2, no murmur Abdomen: soft, obese, bowel sounds heard, NT Integumentary: no obvious rash Neurologic: stuporous Ext: no edema noted : Hui catheter Subjective Date of service: 05/02/21 Principal diagnosis: Ac. resp failure; AMS; Hypoglycemia; ROJELIO; Hyperkalemia; DM II Objective - Vital Signs Vital signs: Vital Signs - 12hr 05/01/21 05/01/21 05/01/21 21:38 22:00 22:30 Temperature Pulse Rate 70 74 84 Pulse Rate [ Bilateral] Pulse Rate [ From Monitor] Respiratory 18 20 Rate Respiratory Rate [Bilateral ] Blood Pressure 112/45 112/45 112/49 O2 Sat by Pulse 98 100 Oximetry 05/01/21 05/01/21 05/01/21 22:38 23:00 23:30 Temperature Pulse Rate 83 75 74 Pulse Rate [ Bilateral] Pulse Rate [ From Monitor] Respiratory 21 20 19 Rate Respiratory Rate [Bilateral ] Blood Pressure 141/112 141/112 119/40 O2 Sat by Pulse 100 100 95 Oximetry 05/02/21 05/02/21 05/02/21 00:00 00:14 00:30 Temperature 98.9 F Pulse Rate 75 77 72 Pulse Rate [ Bilateral] Pulse Rate [ 80 From Monitor] Respiratory 19 12 Rate Respiratory Rate [Bilateral ] Blood Pressure 121/79 105/40 105/40 O2 Sat by Pulse 99 97 99 Oximetry 05/02/21 05/02/21 05/02/21 01:00 01:30 02:00 Temperature Pulse Rate 76 78 83 Pulse Rate [ Bilateral] Pulse Rate [ From Monitor] Respiratory 19 15 22 Rate Respiratory Rate [Bilateral ] Blood Pressure 111/50 91/47 125/64 O2 Sat by Pulse 99 97 100 Oximetry 05/02/21 05/02/21 05/02/21 02:30 03:00 03:07 Temperature Pulse Rate 77 85 Pulse Rate [ 89 Bilateral] Pulse Rate [ From Monitor] Respiratory 14 19 Rate Respiratory 23 Rate [Bilateral ] Blood Pressure 125/64 128/54 O2 Sat by Pulse 100 99 Oximetry 05/02/21 05/02/21 05/02/21 03:30 03:34 04:00 Temperature 99.4 F Pulse Rate 86 85 Pulse Rate [ Bilateral] Pulse Rate [ 80 From Monitor] Respiratory 18 19 Rate Respiratory Rate [Bilateral ] Blood Pressure 121/96 121/96 O2 Sat by Pulse 98 99 Oximetry 05/02/21 05/02/21 05/02/21 04:09 04:30 05:00 Temperature Pulse Rate 82 78 90 Pulse Rate [ Bilateral] Pulse Rate [ From Monitor] Respiratory 16 22 Rate Respiratory Rate [Bilateral ] Blood Pressure 146/92 146/92 129/64 O2 Sat by Pulse 97 97 94 Oximetry 05/02/21 05/02/21 05/02/21 05:30 06:00 06:30 Temperature Pulse Rate 81 78 80 Pulse Rate [ Bilateral] Pulse Rate [ From Monitor] Respiratory 17 25 H 21 Rate Respiratory Rate [Bilateral ] Blood Pressure 129/64 121/58 113/54 O2 Sat by Pulse 86 98 97 Oximetry 05/02/21 05/02/21 05/02/21 07:00 07:30 08:00 Temperature 98.5 F Pulse Rate 75 87 88 Pulse Rate [ Bilateral] Pulse Rate [ From Monitor] Respiratory 17 22 21 Rate Respiratory Rate [Bilateral ] Blood Pressure 113/54 113/54 113/54 O2 Sat by Pulse 96 99 Oximetry 05/02/21 05/02/21 08:39 09:14 Temperature Pulse Rate 83 85 Pulse Rate [ 85 Bilateral] Pulse Rate [ From Monitor] Respiratory Rate Respiratory 18 Rate [Bilateral ] Blood Pressure 105/55 105/55 O2 Sat by Pulse 97 Oximetry - Lab 05/01/21 07:11 05/02/21 08:34 Most recent lab results ABG pH 7.466 (7.320-7.450) H 05/01/21 04:02 ABG O2 Saturation 91.9 (0-100) 05/01/21 04:02 Calcium 9.1 mg/dL (8.4-10.2) 05/01/21 07:11 Phosphorus 2.60 mg/dL (2.5-4.5) 04/22/21 08:00 Magnesium 2.10 mg/dL (1.7-2.3) 04/23/21 07:02 Urine Creatinine 24.4 mg/dL (0.1-20.0) H 04/16/21 00:12 Urine Sodium 97 mmol/L 04/16/21 00:12 Medications & Allergies - Medications Allergies/Adverse Reactions: Allergies No Known Allergies Allergy (Unverified 04/15/21 17:41) Home Medications: Home Medications Medication Instructions Recorded Confirmed Last Taken Type Betaxolol HCl [Betoptic S 0.25% 1 drop OU BID 04/16/21 04/16/21 Unknown History SUSP] Bimatoprost [Lumigan 0.01%] 1 drop OU QPM 04/16/21 04/16/21 Unknown History Brimonidine Tartrate [Brimonidine 5 ml OU BID 04/16/21 04/16/21 Unknown History Tartrate 0.2%] Furosemide [Lasix TAB] 40 mg PO QDAY 04/16/21 04/16/21 Unknown History Gabapentin [Neurontin] 300 mg PO Q8HR 04/16/21 04/16/21 Unknown History HYDROcodone/APAP 10-325 [[place] 1 each PO Q6HR PRN 04/16/21 04/16/21 Unknown History 10/325] Hydralazine HCl 50 mg PO Q4HR 04/16/21 04/16/21 Unknown History Insulin Aspart Prot/Insuln Asp 52 units SQ HS 04/16/21 04/16/21 Unknown History [Novolog Mix 70-30 Flexpen] Metoprolol [Lopressor] 25 mg PO BID 04/16/21 04/16/21 Unknown History Pravastatin [Pravachol] 20 mg PO QHS 04/16/21 04/16/21 Unknown History Promethazine [Phenergan] 25 mg PO Q6HR 04/16/21 04/16/21 Unknown History allopurinoL [Zyloprim] 150 mg PO QDAY 04/16/21 04/16/21 Unknown History Active Medications: Generic Name Dose Route Start Last Admin Trade Name Freq PRN Reason Stop Dose Admin Acetaminophen 650 mg 04/15/21 19:11 04/30/21 20:14 Acetaminophen 325 Mg Tab PO 650 mg Q6H PRN Administration Pain MILD(1-3)/Fever >100.5/SEXTON Albuterol/Ipratropium 1 ampul 04/24/21 14:00 05/02/21 08:39 Ipratropium/Albuterol Sulfate 3 Ml Ampul.Neb IH 1 ampul Q6HRT WOLFGANG Administration Amlodipine Besylate 10 mg 04/25/21 10:00 05/02/21 09:14 Amlodipine 10 Mg Tab PO 10 mg DAILY WOLFGANG Administration Lipase/Protease/Amylase 1 each 04/16/21 12:52 Lipase 10,500/Protease 25,000/Amylase 43,750 (Units) Dr Simpson FEEDTUBE PRN PRN For Clogged Feeding Tube Aspirin 81 mg 04/25/21 10:00 05/02/21 09:14 Aspirin 81 Mg Tab Chew PO 81 mg QDAY WOLFGANG Administration Bisacodyl 10 mg 04/17/21 11:01 04/28/21 21:04 Bisacodyl 10 Mg Rect Supp ME 10 mg QDAY PRN Administration Constipation Brimonidine Tartrate 1 drops 04/17/21 22:00 05/02/21 09:09 Brimonidine 0.15% Ophth Soln OU 1 drops BID WOLFGANG Administration Docusate Sodium 100 mg 04/29/21 15:00 05/02/21 09:06 Docusate Sodium 100 Mg/10 Ml Oral Liqd PO 100 mg BID WOLFGANG Administration Epinephrine 0.5 ml 04/21/21 12:56 Epinephrine Racemic 2.25% 0.5ml Nebu IH Q4HRT PRN Shortness Of Breath Famotidine 20 mg 04/17/21 10:00 05/02/21 09:06 Famotidine 20 Mg Tab PO 20 mg DAILY WOLFGANG Administration Fentanyl 50 mcg 04/24/21 13:03 Fentanyl 100 Mcg/2 Ml Inj IV Q10MIN PRN ANALGESIA Heparin Sodium (Porcine) 5,000 unit 04/15/21 22:00 05/02/21 09:05 Heparin 5,000 Unit/1 Ml Vial SUB-Q 5,000 unit Q12HR WOLFGANG Administration Hydralazine HCl 10 mg 04/16/21 18:00 04/24/21 05:25 Hydralazine 20 Mg/1 Ml Inj IV 10 mg Q4HR PRN Administration Hypertension Hydralazine HCl 100 mg 04/21/21 14:00 05/02/21 08:07 Hydralazine 100 Mg Tab PO 100 mg TID WOLFGANG Administration Hydrophilic Ointment 1 applic 04/15/21 17:24 Lip Therapy Vaseline TP Q2HR PRN Dry Lips Fentanyl Citrate 2,000 mcg in 100 mls @ 4.765 mls/hr 04/24/21 14:00 04/25/21 09:15 Fentanyl Drip Premix IV 0 mcg/kg/hr TITR WOLFGANG 0 mls/hr Titration Protocol 1 MCG/KG/HR Propofol 1,000 mg in 100 mls @ 2.859 mls/hr 04/24/21 14:00 04/25/21 09:10 Diprivan 10 Mg/Ml IV 0 mcg/kg/min TITR WOLFGANG 0 mls/hr Titration Protocol 5 MCG/KG/MIN Cefepime HCl 2 gm in 100 mls @ 200 mls/hr 04/27/21 10:00 05/02/21 09:05 Cefepime/Ns 2 Gm/100 Ml IV 200 mls/hr Q24H WOLFGANG Administration Protocol Metronidazole 500 mg in 100 mls @ 100 mls/hr 04/30/21 12:00 05/02/21 04:11 Flagyl 500 Mg/100 Ml IV 100 mls/hr Q8H WOLFGANG Administration Protocol Insulin Glargine 52 units 05/02/21 08:00 05/02/21 08:06 Insulin Glargine 100 Units/Ml SUB-Q 52 units QAMDIAB WOLFGANG Administration Insulin Human Lispro 0 unit 04/16/21 15:00 05/02/21 06:35 Insulin Lispro 100 Unit/Ml SUB-Q 3 unit Q6HR WOLFGANG Administration Protocol Latanoprost 1 drops 04/17/21 18:00 05/01/21 18:27 Latanoprost 0.005% Ophth Soln 2.5 Ml OU 1 drops QPM WOLFGANG Administration Levothyroxine Sodium 25 mcg 04/19/21 06:00 05/02/21 05:03 Levothyroxine 25 Mcg Tab PO 25 mcg DAILY@0600 WOLFGANG Administration Metoprolol Tartrate 25 mg 04/19/21 10:00 05/02/21 09:06 Metoprolol Tartrate 25 Mg Tab PO 25 mg BID WOLFGANG Administration Multi-Ingred Cream/Lotion/Oil/Oint 1 applic 04/15/21 17:24 05/02/21 09:06 Mineral Oil/Petrolatum, White Ophth Oint 3.5 Gm OU 1 applic Q4HR PRN Administration Dry Eye(s) Pravastatin Sodium 20 mg 04/19/21 22:00 05/01/21 21:39 Pravastatin 20 Mg Tab PO 20 mg QHS WOLFGANG Administration Scopolamine 1 each 04/20/21 18:00 05/02/21 09:14 Scopolamine Transdermal Patch 72 Hr TD 1 each Q3D WOLFGANG Administration Simple Syrup 15 ml 04/16/21 12:52 Simple Syrup 15 Ml FEEDTUBE PRN PRN Hypoglycemia Simple Syrup 30 ml 04/16/21 12:52 Simple Syrup 15 Ml FEEDTUBE PRN PRN Hypoglycemia Sodium Bicarbonate 325 mg 04/16/21 12:52 Sodium Bicarbonate 325 Mg Tab FEEDTUBE PRN PRN For Clogged Feeding Tube Sodium Chloride 10 ml 04/15/21 22:00 05/02/21 09:11 Sodium Chloride 0.9% 10 Ml Flush Syringe IV 10 ml BID WOLFGANG Administration Sodium Chloride 10 ml 04/15/21 19:11 04/24/21 05:27 Sodium Chloride 0.9% 10 Ml Flush Syringe IV 10 ml PRN PRN Administration LINE FLUSH Tamsulosin HCl 0.4 mg 04/25/21 14:00 05/02/21 09:06 Tamsulosin 0.4 Mg Cap PO 0.4 mg QDAY WOLFGANG Administration Timolol Maleate 1 drops 04/19/21 10:00 05/02/21 09:11 Timolol 0.5% Ophth Soln 5 Ml OU 1 drops QDAY WOLFGANG Administration
[2021-05-02 09:56] LABS: Calcium 8.3 mg/dL (8.4-10.2)
--- NOTE | 2021-05-02 10:52 | Progress Note ---
Assessment and Plan Cultures: 04/15/2021 blood culture: No growth 04/15/2021 sputum culture: Contaminated 04/16/2021 urine culture: Mixed nilesh 04/16/2021 tracheal aspirate culture: Usual respiratory nilesh 04/18/2021 urine culture: 10K-100 K Pseudomonas aeruginosa 04/18/2021 blood culture: No growth 04/24/2021 resp culture: usual resp nilesh 04/26/2021 blood culture: No growth COVID-19 PCR: Negative 04/30/2021 blood culture: No growth 04/30/2021 urine culture: In process A/P: 80-year-old female with diabetes mellitus, coronary artery disease, hypertension, breast cancer status post mastectomy, TIA was admitted to the hospital on 04/16/2021 with altered mental status and hypoglycemia: #Sepsis: Etiology unclear. Prolonged mechanical ventilation and ICU stay. Ruled out bacteremia, UTI. Chest x-ray from today does not reveal any pneumonia. ? some leucocytosis related to steroid use from 04/21/2021 to 04/24/2021. #Acute respiratory failure: on the vent. #Acute encephalopathy: Metabolic likely. #UTI with Pseudomonas: Recently treated with IV cefepime. #ROJELIO: Renally dose antibiotics. Recs: -Afebrile, Continue IV Cefepime, Flagyl, plan to stop at 5 days -awaiting trach -f/u cultures Cash Parks MD, FACP [facility] O: [phone] F: [phone] Subjective Date of service: 05/02/21 Principal diagnosis: Ac. resp failure; AMS; Hypoglycemia; ROJELIO; Hyperkalemia; DM II Interval history: Remains on the vent. No fever. Objective - Exam Narrative Exam: Physical Exam: Constitutional: sedated, intubated, on the vent Head, Ears, Nose: Normocephalic, atraumatic. External ears, nose normal Eyes: Conjunctivae/corneas clear. No icterus. No ptosis. Neck: intubated Oral: intubated Cardiovascular: S1, S2 + Respiratory: AE fair bilaterally and equal GI: Soft, bowel sounds + Musculoskeletal: No pedal edema, no cyanosis. Skin: No rash or abscess Hem/Lymphatic: No palpable cervical or supraclavicular nodes. No lymphangitis Psych: no agitation Neurological: sedated, intubated, on the vent, exam limited - Constitutional Vitals: Vital Signs Temp Pulse Resp BP Pulse Ox 98.5 F 78 32 H 117/50 98 05/02/21 08:00 05/02/21 10:31 05/02/21 10:31 05/02/21 10:31 05/02/21 10:31 Temperature -Last 24 Hours Temperature 98.5 F Temperature 99.4 F Temperature 98.9 F Temperature 98.3 F Temperature 97.4 F Temperature 97.9 F - Labs CBC & Chem 7: 05/01/21 07:11 05/02/21 08:34 Labs: Abnormal lab results 05/01/21 05/01/21 05/01/21 Range/Units 07:11 11:30 11:31 Seg Neuts % (Manual) 80.0 H (40.0-70.0) % Lymphocytes % (Manual) 5.0 L (13.4-35.0) % Seg Neutrophils # Man 9.8 H (1.8-7.7) K/mm3 Lymphocytes # (Manual) 0.6 L (1.2-5.4) K/mm3 Sodium (137-145) mmol/L Chloride (98-107) mmol/L BUN (7-17) mg/dL Creatinine (0.6-1.2) mg/dL Glucose (65-100) mg/dL POC Glucose 247 H 258 H (70-105) mg/dL Calcium (8.4-10.2) mg/dL 05/01/21 05/01/21 05/02/21 Range/Units 17:42 23:49 05:12 Seg Neuts % (Manual) (40.0-70.0) % Lymphocytes % (Manual) (13.4-35.0) % Seg Neutrophils # Man (1.8-7.7) K/mm3 Lymphocytes # (Manual) (1.2-5.4) K/mm3 Sodium (137-145) mmol/L Chloride (98-107) mmol/L BUN (7-17) mg/dL Creatinine (0.6-1.2) mg/dL Glucose (65-100) mg/dL POC Glucose 171 H 167 H 163 H (70-105) mg/dL Calcium (8.4-10.2) mg/dL 05/02/21 Range/Units 08:34 Seg Neuts % (Manual) (40.0-70.0) % Lymphocytes % (Manual) (13.4-35.0) % Seg Neutrophils # Man (1.8-7.7) K/mm3 Lymphocytes # (Manual) (1.2-5.4) K/mm3 Sodium 148 H (137-145) mmol/L Chloride 110.4 H (98-107) mmol/L BUN 124 H (7-17) mg/dL Creatinine 3.4 H (0.6-1.2) mg/dL Glucose 208 H (65-100) mg/dL POC Glucose (70-105) mg/dL Calcium 8.3 L (8.4-10.2) mg/dL
--- NOTE | 2021-05-02 12:05 | Progress Note ---
Assessment and Plan Acute respiratory failure, on mechanical ventilatory support. Acute toxic metabolic encephalopathy Hypoglycemia ROJELIO Hyperkalemia Rhabdomyolysis Possible seizure activity DM II HTN CAD Obesity H/O breast cancer H/O TIA Leukocytosis Elevated serum TSH, possible hypothyroidism - increase free water flushes to 250 mls q4h - discontinue folkey catheter - still awaiting tracheostomy (Plavix on hold; trach likely early next week) - continue Flomax re: retention - continue care as below otherwise; - continue to wean supplemental oxygen for target O2 sat's > 90% acutely - VAP bundle addressed - continue lung protective strategies - continue bronchodilators with pulmonary hygiene per RT - continue Daily SAT and SBT assessment as tolerated - wean per pulmonary driven protocols otherwise - continue accuchecks with glycemic control per SSI (While critically ill target blood glucose of 140-180 mg/dL; avoid hypoglycemia) - sedation prn for target RASS 0 to -1 - avoid nephrotoxins, renally dose all medications - continue to avoid benzodiazepine's, reduce the possibility of delirium - follow clinically off AB's; trend fevers / WBC - prn analgesia per CPOT score - Maintenance of sleep-wake cycle, avoid delirium - continue enteral nutritional support at goal rate as tolerated - G.I. & VTE prophylaxis - PT/OT/ROM exercises - continue mobility protocols for pressure ulcer prophylaxis - Monitor hemodynamics closely - continue other care per attending / other consultants - discharge planning ongoing concurrently .... Re-evaluate in am & prn CONDITION: CRITICAL PROGNOSIS: GUARDED CODE STATUS: FULL CODE The high probability of a clinically significant, sudden or life-threatening deterioration of the [respiratory, cardiovascular, GI & neurologic] system(s) required my full and direct attention, intervention and personal management. The aggregate critical care time was [36] minutes without overlap. Time includes spent on; [x] Data Review and interpretation [x] Patient assessment and monitoring of vital signs [x] Documentation [x] Medication orders and management Subjective Date of service: 05/02/21 Principal diagnosis: Ac. resp failure; AMS; Hypoglycemia; ROJELIO; Hyperkalemia; DM II Interval history: Patient is seen today for: Acute respiratory failure; AMS; Hypoglycemia; ROJELIO; Hyperkalemia; DM II; H/O breast cancer; Elevated serum TSH, possible hypothyroidism Seen and examined at bedside; 24hour events reviewed; nursing and respiratory care staff consulted; no adverse overnight events reported to me; resting peacefully in bed; remains on MVS; tolerating PSV trial tenuously today and back on full support; responds appropriately otherwise; hypernatremia is persistent Objective Vital Signs - 12hr 05/02/21 05/02/21 05/02/21 00:14 00:30 01:00 Temperature Pulse Rate 77 72 76 Pulse Rate [ Bilateral] Pulse Rate [ From Monitor] Respiratory 12 19 Rate Respiratory Rate [Bilateral ] Blood Pressure 105/40 105/40 111/50 O2 Sat by Pulse 97 99 99 Oximetry 05/02/21 05/02/21 05/02/21 01:30 02:00 02:30 Temperature Pulse Rate 78 83 77 Pulse Rate [ Bilateral] Pulse Rate [ From Monitor] Respiratory 15 22 14 Rate Respiratory Rate [Bilateral ] Blood Pressure 91/47 125/64 125/64 O2 Sat by Pulse 97 100 100 Oximetry 05/02/21 05/02/21 05/02/21 03:00 03:07 03:30 Temperature Pulse Rate 85 86 Pulse Rate [ 89 Bilateral] Pulse Rate [ From Monitor] Respiratory 19 18 Rate Respiratory 23 Rate [Bilateral ] Blood Pressure 128/54 121/96 O2 Sat by Pulse 99 98 Oximetry 05/02/21 05/02/21 05/02/21 03:34 04:00 04:09 Temperature 99.4 F Pulse Rate 85 82 Pulse Rate [ Bilateral] Pulse Rate [ 80 From Monitor] Respiratory 19 Rate Respiratory Rate [Bilateral ] Blood Pressure 121/96 146/92 O2 Sat by Pulse 99 97 Oximetry 05/02/21 05/02/21 05/02/21 04:30 05:00 05:30 Temperature Pulse Rate 78 90 81 Pulse Rate [ Bilateral] Pulse Rate [ From Monitor] Respiratory 16 22 17 Rate Respiratory Rate [Bilateral ] Blood Pressure 146/92 129/64 129/64 O2 Sat by Pulse 97 94 86 Oximetry 05/02/21 05/02/21 05/02/21 06:00 06:30 07:00 Temperature Pulse Rate 78 80 75 Pulse Rate [ Bilateral] Pulse Rate [ From Monitor] Respiratory 25 H 21 17 Rate Respiratory Rate [Bilateral ] Blood Pressure 121/58 113/54 113/54 O2 Sat by Pulse 98 97 96 Oximetry 05/02/21 05/02/21 05/02/21 07:30 08:00 08:30 Temperature 98.5 F Pulse Rate 87 88 89 Pulse Rate [ Bilateral] Pulse Rate [ From Monitor] Respiratory 22 21 16 Rate Respiratory Rate [Bilateral ] Blood Pressure 113/54 113/54 140/52 O2 Sat by Pulse 99 99 Oximetry 05/02/21 05/02/21 05/02/21 08:39 09:00 09:14 Temperature Pulse Rate 83 84 85 Pulse Rate [ 85 Bilateral] Pulse Rate [ From Monitor] Respiratory 22 Rate Respiratory 18 Rate [Bilateral ] Blood Pressure 105/55 140/52 105/55 O2 Sat by Pulse 97 97 Oximetry 05/02/21 05/02/21 05/02/21 09:31 10:01 10:31 Temperature Pulse Rate 82 95 H 78 Pulse Rate [ Bilateral] Pulse Rate [ From Monitor] Respiratory 24 20 32 H Rate Respiratory Rate [Bilateral ] Blood Pressure 105/55 117/50 O2 Sat by Pulse 94 94 98 Oximetry Constitutional: appears uncomfortable, other (elderly obese female with mildly increased respiratory effort at rest on MVS) Eyes: non-icteric (Patient obese and having mild respiratory distress at rest) ENT: oropharynx moist, other (ETT 24 cm RICARDO) Neck: supple, no lymphadenopathy, no JVD, other (large circumference) Effort: mildly labored Ascultation: Bilateral: diminished breath sounds, rhonchi Percussion: Bilateral: not dull Cardiovascular: regular rate and rhythm, other (S1,S2) Gastrointestinal: normoactive bowel sounds, hypoactive bowel sounds, non-tender, non-distended (protuberant), other (firm) Integumentary: normal Extremities: no cyanosis, no edema, pulses normal, no ischemia or petechiae Neurologic: non-focal exam (tracks voice), pupils equal and round, motor strength normal and Psychiatric: other (unable to assess re: AMS) CBC and BMP: 05/01/21 07:11 05/03/21 05:14 ABG, PT/INR, D-dimer: ABG ABG pH 7.466 (7.320-7.450) H 05/01/21 04:02 POC ABG pCO2 35.9 mmHg (32.0-48.0) 05/01/21 04:02 POC ABG pO2 61.4 mmHg (83-108) L 05/01/21 04:02 POC ABG HCO3 25.3 05/01/21 04:02 ABG O2 Saturation 91.9 (0-100) 05/01/21 04:02 PT/INR, D-dimer PT 12.2 Sec. (12.2-14.9) 04/15/21 17:20 INR 0.91 (0.87-1.13) 04/15/21 17:20 Abnormal lab findings: Abnormal Labs 04/15/21 04/15/21 04/15/21 17:00 17:20 17:20 WBC 11.2 H RBC Hgb Hct 43.0 H MCV RDW 15.3 H Plt Count Lymph % (Auto) 12.8 L Seg Neutrophils % 82.4 H Seg Neuts % (Manual) Lymphocytes % (Manual) Monocytes % (Manual) Seg Neutrophils # 9.3 H Seg Neutrophils # Man Lymphocytes # (Manual) Monocytes # (Manual) ABG pH POC ABG pCO2 POC ABG pO2 ABG Hemoglobin ABG Oxyhemoglobin ABG Sodium ABG Potassium ABG Chloride ABG Glucose Carboxyhemoglobin Sodium 129 L Potassium 7.1 H* Chloride 91.9 L BUN 35 H Creatinine 2.8 H Glucose POC Glucose 191 H Calcium Phosphorus Magnesium AST 69 H ALT Total Creatine Kinase CK-MB (CK-2) Troponin T Total Protein Albumin HDL Cholesterol TSH Free T3 Index Arterial Blood Glucose Arterial Blood Ionized Calcium Urine pH Urine WBC (Auto) Urine Creatinine Acetaminophen 04/15/21 04/15/21 04/15/21 17:20 17:20 17:20 WBC RBC Hgb Hct MCV RDW Plt Count Lymph % (Auto) Seg Neutrophils % Seg Neuts % (Manual) Lymphocytes % (Manual) Monocytes % (Manual) Seg Neutrophils # Seg Neutrophils # Man Lymphocytes # (Manual) Monocytes # (Manual) ABG pH POC ABG pCO2 POC ABG pO2 ABG Hemoglobin ABG Oxyhemoglobin ABG Sodium ABG Potassium ABG Chloride ABG Glucose Carboxyhemoglobin Sodium Potassium Chloride BUN Creatinine Glucose POC Glucose Calcium Phosphorus Magnesium AST ALT Total Creatine Kinase 1000 H CK-MB (CK-2) Troponin T Total Protein Albumin HDL Cholesterol TSH 14.190 H Free T3 Index Arterial Blood Glucose Arterial Blood Ionized Calcium Urine pH Urine WBC (Auto) Urine Creatinine Acetaminophen 5.0 L 04/15/21 04/15/21 04/15/21 20:49 21:23 23:15 WBC RBC Hgb Hct MCV RDW Plt Count Lymph % (Auto) Seg Neutrophils % Seg Neuts % (Manual) Lymphocytes % (Manual) Monocytes % (Manual) Seg Neutrophils # Seg Neutrophils # Man Lymphocytes # (Manual) Monocytes # (Manual) ABG pH 7.557 H POC ABG pCO2 30.0 L POC ABG pO2 493.3 H ABG Hemoglobin ABG Oxyhemoglobin 99.0 H ABG Sodium 131.5 L ABG Potassium 4.7 H ABG Chloride 94.0 L ABG Glucose 218 H Carboxyhemoglobin Sodium Potassium Chloride BUN Creatinine Glucose POC Glucose 173 H 207 H Calcium Phosphorus Magnesium AST ALT Total Creatine Kinase CK-MB (CK-2) Troponin T Total Protein Albumin HDL Cholesterol TSH Free T3 Index Arterial Blood Glucose 218 H Arterial Blood Ionized Calcium 5.4 H Urine pH Urine WBC (Auto) Urine Creatinine Acetaminophen 04/16/21 04/16/21 04/16/21 00:09 00:12 00:19 WBC RBC Hgb Hct MCV RDW Plt Count Lymph % (Auto) Seg Neutrophils % Seg Neuts % (Manual) Lymphocytes % (Manual) Monocytes % (Manual) Seg Neutrophils # Seg Neutrophils # Man Lymphocytes # (Manual) Monocytes # (Manual) ABG pH POC ABG pCO2 POC ABG pO2 ABG Hemoglobin ABG Oxyhemoglobin ABG Sodium ABG Potassium ABG Chloride ABG Glucose Carboxyhemoglobin Sodium Potassium 6.7 H* Chloride BUN Creatinine Glucose POC Glucose Calcium Phosphorus Magnesium AST ALT Total Creatine Kinase CK-MB (CK-2) Troponin T Total Protein Albumin HDL Cholesterol TSH Free T3 Index Arterial Blood Glucose Arterial Blood Ionized Calcium Urine pH 9.0 H Urine WBC (Auto) Urine Creatinine 24.4 H Acetaminophen 04/16/21 04/16/21 04/16/21 03:43 03:55 05:02 WBC 21.2 H RBC Hgb Hct 43.4 H MCV 98 H RDW Plt Count Lymph % (Auto) Seg Neutrophils % Seg Neuts % (Manual) 84.0 H Lymphocytes % (Manual) 2.0 L Monocytes % (Manual) 10.0 H Seg Neutrophils # Seg Neutrophils # Man 17.8 H Lymphocytes # (Manual) 0.4 L Monocytes # (Manual) 2.1 H ABG pH 7.461 H POC ABG pCO2 POC ABG pO2 ABG Hemoglobin ABG Oxyhemoglobin ABG Sodium 126.8 L ABG Potassium 5.4 H ABG Chloride 90.0 L ABG Glucose 325 H Carboxyhemoglobin Sodium Potassium Chloride BUN Creatinine Glucose POC Glucose 391 H Calcium Phosphorus Magnesium AST ALT Total Creatine Kinase CK-MB (CK-2) Troponin T Total Protein Albumin HDL Cholesterol TSH Free T3 Index Arterial Blood Glucose 325 H Arterial Blood Ionized Calcium Urine pH Urine WBC (Auto) Urine Creatinine Acetaminophen 04/16/21 04/16/21 04/16/21 05:02 11:34 16:09 WBC RBC Hgb Hct MCV RDW Plt Count Lymph % (Auto) Seg Neutrophils % Seg Neuts % (Manual) Lymphocytes % (Manual) Monocytes % (Manual) Seg Neutrophils # Seg Neutrophils # Man Lymphocytes # (Manual) Monocytes # (Manual) ABG pH POC ABG pCO2 POC ABG pO2 ABG Hemoglobin ABG Oxyhemoglobin ABG Sodium ABG Potassium ABG Chloride ABG Glucose Carboxyhemoglobin Sodium 131 L Potassium 5.9 H Chloride 88.7 L BUN 34 H Creatinine 2.9 H Glucose 249 H POC Glucose 382 H 300 H Calcium 10.4 H Phosphorus Magnesium AST 65 H ALT Total Creatine Kinase CK-MB (CK-2) Troponin T Total Protein Albumin 3.8 L HDL Cholesterol TSH Free T3 Index Arterial Blood Glucose Arterial Blood Ionized Calcium Urine pH Urine WBC (Auto) Urine Creatinine Acetaminophen 04/16/21 04/16/21 04/16/21 18:15 19:01 19:01 WBC RBC Hgb Hct MCV RDW Plt Count Lymph % (Auto) Seg Neutrophils % Seg Neuts % (Manual) Lymphocytes % (Manual) Monocytes % (Manual) Seg Neutrophils # Seg Neutrophils # Man Lymphocytes # (Manual) Monocytes # (Manual) ABG pH POC ABG pCO2 POC ABG pO2 ABG Hemoglobin ABG Oxyhemoglobin ABG Sodium ABG Potassium ABG Chloride ABG Glucose Carboxyhemoglobin Sodium 125 L Potassium 5.5 H Chloride 84.5 L BUN 37 H Creatinine 3.5 H Glucose 236 H POC Glucose 287 H Calcium Phosphorus Magnesium AST ALT Total Creatine Kinase CK-MB (CK-2) Troponin T Total Protein Albumin HDL Cholesterol TSH Free T3 Index 1.1 L Arterial Blood Glucose Arterial Blood Ionized Calcium Urine pH Urine WBC (Auto) Urine Creatinine Acetaminophen 04/16/21 04/16/21 04/17/21 19:01 23:48 03:09 WBC RBC Hgb Hct MCV RDW Plt Count Lymph % (Auto) Seg Neutrophils % Seg Neuts % (Manual) Lymphocytes % (Manual) Monocytes % (Manual) Seg Neutrophils # Seg Neutrophils # Man Lymphocytes # (Manual) Monocytes # (Manual) ABG pH 7.518 H POC ABG pCO2 POC ABG pO2 ABG Hemoglobin ABG Oxyhemoglobin ABG Sodium 126.4 L ABG Potassium ABG Chloride 89.0 L ABG Glucose 200 H Carboxyhemoglobin Sodium Potassium 5.6 H Chloride BUN Creatinine Glucose POC Glucose 243 H Calcium Phosphorus Magnesium AST ALT Total Creatine Kinase CK-MB (CK-2) Troponin T Total Protein Albumin HDL Cholesterol TSH Free T3 Index Arterial Blood Glucose 200 H Arterial Blood Ionized Calcium 4.4 L Urine pH Urine WBC (Auto) Urine Creatinine Acetaminophen 04/17/21 04/17/21 04/17/21 05:04 06:14 11:55 WBC RBC Hgb Hct MCV RDW Plt Count Lymph % (Auto) Seg Neutrophils % Seg Neuts % (Manual) Lymphocytes % (Manual) Monocytes % (Manual) Seg Neutrophils # Seg Neutrophils # Man Lymphocytes # (Manual) Monocytes # (Manual) ABG pH POC ABG pCO2 POC ABG pO2 ABG Hemoglobin ABG Oxyhemoglobin ABG Sodium ABG Potassium ABG Chloride ABG Glucose Carboxyhemoglobin Sodium 129 L Potassium Chloride 86.1 L BUN 39 H Creatinine 3.5 H Glucose 202 H POC Glucose 208 H 276 H Calcium Phosphorus Magnesium AST ALT Total Creatine Kinase 750 H CK-MB (CK-2) Troponin T 0.119 H* D Total Protein Albumin HDL Cholesterol 61 H TSH Free T3 Index Arterial Blood Glucose Arterial Blood Ionized Calcium Urine pH Urine WBC (Auto) Urine Creatinine Acetaminophen 04/17/21 04/17/21 04/17/21 15:35 15:35 17:07 WBC 17.1 H RBC Hgb Hct MCV RDW Plt Count Lymph % (Auto) Seg Neutrophils % Seg Neuts % (Manual) Lymphocytes % (Manual) Monocytes % (Manual) Seg Neutrophils # Seg Neutrophils # Man Lymphocytes # (Manual) Monocytes # (Manual) ABG pH POC ABG pCO2 POC ABG pO2 ABG Hemoglobin ABG Oxyhemoglobin ABG Sodium ABG Potassium ABG Chloride ABG Glucose Carboxyhemoglobin Sodium Potassium Chloride BUN Creatinine Glucose POC Glucose 148 H Calcium Phosphorus Magnesium AST ALT Total Creatine Kinase 615 H CK-MB (CK-2) 9.1 H Troponin T Total Protein Albumin HDL Cholesterol TSH Free T3 Index Arterial Blood Glucose Arterial Blood Ionized Calcium Urine pH Urine WBC (Auto) Urine Creatinine Acetaminophen 04/18/21 04/18/21 04/18/21 00:01 03:00 05:24 WBC RBC Hgb Hct MCV RDW Plt Count Lymph % (Auto) Seg Neutrophils % Seg Neuts % (Manual) Lymphocytes % (Manual) Monocytes % (Manual) Seg Neutrophils # Seg Neutrophils # Man Lymphocytes # (Manual) Monocytes # (Manual) ABG pH 7.497 H POC ABG pCO2 POC ABG pO2 77.7 L ABG Hemoglobin 10.4 L ABG Oxyhemoglobin ABG Sodium 129.7 L ABG Potassium 2.8 L ABG Chloride 92.0 L ABG Glucose 134 H Carboxyhemoglobin 0.3 L Sodium Potassium Chloride BUN Creatinine Glucose POC Glucose 192 H 162 H Calcium Phosphorus Magnesium AST ALT Total Creatine Kinase CK-MB (CK-2) Troponin T Total Protein Albumin HDL Cholesterol TSH Free T3 Index Arterial Blood Glucose 134 H Arterial Blood Ionized Calcium 4.3 L Urine pH Urine WBC (Auto) Urine Creatinine Acetaminophen 04/18/21 04/18/21 04/18/21 05:34 05:34 05:43 WBC 15.3 H RBC 3.34 L Hgb Hct MCV RDW 15.3 H Plt Count Lymph % (Auto) Seg Neutrophils % Seg Neuts % (Manual) Lymphocytes % (Manual) Monocytes % (Manual) Seg Neutrophils # Seg Neutrophils # Man Lymphocytes # (Manual) Monocytes # (Manual) ABG pH POC ABG pCO2 POC ABG pO2 ABG Hemoglobin ABG Oxyhemoglobin ABG Sodium ABG Potassium ABG Chloride ABG Glucose Carboxyhemoglobin Sodium 134 L Potassium 3.0 L D Chloride 93.5 L BUN 42 H Creatinine 3.1 H Glucose 152 H POC Glucose Calcium Phosphorus Magnesium 1.40 L AST ALT Total Creatine Kinase 427 H CK-MB (CK-2) Troponin T 0.081 H D Total Protein Albumin HDL Cholesterol TSH Free T3 Index Arterial Blood Glucose Arterial Blood Ionized Calcium Urine pH Urine WBC (Auto) Urine Creatinine Acetaminophen 04/18/21 04/18/21 04/18/21 09:11 11:34 17:24 WBC RBC Hgb Hct MCV RDW Plt Count Lymph % (Auto) Seg Neutrophils % Seg Neuts % (Manual) Lymphocytes % (Manual) Monocytes % (Manual) Seg Neutrophils # Seg Neutrophils # Man Lymphocytes # (Manual) Monocytes # (Manual) ABG pH POC ABG pCO2 POC ABG pO2 ABG Hemoglobin ABG Oxyhemoglobin ABG Sodium ABG Potassium ABG Chloride ABG Glucose Carboxyhemoglobin Sodium Potassium Chloride BUN Creatinine Glucose POC Glucose 170 H 151 H Calcium Phosphorus Magnesium AST ALT Total Creatine Kinase CK-MB (CK-2) Troponin T Total Protein Albumin HDL Cholesterol TSH Free T3 Index Arterial Blood Glucose Arterial Blood Ionized Calcium Urine pH Urine WBC (Auto) 34.0 H Urine Creatinine Acetaminophen 04/18/21 04/19/21 04/19/21 23:18 04:09 05:19 WBC RBC Hgb Hct MCV RDW Plt Count Lymph % (Auto) Seg Neutrophils % Seg Neuts % (Manual) Lymphocytes % (Manual) Monocytes % (Manual) Seg Neutrophils # Seg Neutrophils # Man Lymphocytes # (Manual) Monocytes # (Manual) ABG pH 7.476 H POC ABG pCO2 POC ABG pO2 79.4 L ABG Hemoglobin 10.7 L ABG Oxyhemoglobin ABG Sodium 131.2 L ABG Potassium 2.8 L ABG Chloride 94.0 L ABG Glucose 209 H Carboxyhemoglobin 0.3 L Sodium Potassium Chloride BUN Creatinine Glucose POC Glucose 182 H 204 H Calcium Phosphorus Magnesium AST ALT Total Creatine Kinase CK-MB (CK-2) Troponin T Total Protein Albumin HDL Cholesterol TSH Free T3 Index Arterial Blood Glucose 209 H Arterial Blood Ionized Calcium Urine pH Urine WBC (Auto) Urine Creatinine Acetaminophen 04/19/21 04/19/21 04/19/21 07:30 07:30 10:35 WBC 14.8 H RBC 3.20 L Hgb Hct MCV 98 H RDW Plt Count 137 L Lymph % (Auto) Seg Neutrophils % Seg Neuts % (Manual) Lymphocytes % (Manual) Monocytes % (Manual) Seg Neutrophils # Seg Neutrophils # Man Lymphocytes # (Manual) Monocytes # (Manual) ABG pH 7.464 H POC ABG pCO2 POC ABG pO2 81.8 L ABG Hemoglobin 10.8 L ABG Oxyhemoglobin ABG Sodium 129.6 L ABG Potassium ABG Chloride 95.0 L ABG Glucose 238 H Carboxyhemoglobin Sodium 133 L Potassium 2.8 L* Chloride 94.4 L BUN 43 H Creatinine 2.7 H Glucose 255 H POC Glucose Calcium 8.0 L Phosphorus Magnesium AST ALT Total Creatine Kinase CK-MB (CK-2) Troponin T 0.060 H D Total Protein Albumin HDL Cholesterol TSH Free T3 Index Arterial Blood Glucose 238 H Arterial Blood Ionized Calcium Urine pH Urine WBC (Auto) Urine Creatinine Acetaminophen 04/19/21 04/19/21 04/19/21 11:48 20:40 23:04 WBC RBC Hgb Hct MCV RDW Plt Count Lymph % (Auto) Seg Neutrophils % Seg Neuts % (Manual) Lymphocytes % (Manual) Monocytes % (Manual) Seg Neutrophils # Seg Neutrophils # Man Lymphocytes # (Manual) Monocytes # (Manual) ABG pH POC ABG pCO2 POC ABG pO2 ABG Hemoglobin ABG Oxyhemoglobin ABG Sodium ABG Potassium ABG Chloride ABG Glucose Carboxyhemoglobin Sodium Potassium 3.4 L D Chloride BUN Creatinine Glucose POC Glucose 208 H 173 H Calcium Phosphorus Magnesium AST ALT Total Creatine Kinase CK-MB (CK-2) Troponin T Total Protein Albumin HDL Cholesterol TSH Free T3 Index Arterial Blood Glucose Arterial Blood Ionized Calcium Urine pH Urine WBC (Auto) Urine Creatinine Acetaminophen 04/20/21 04/20/21 04/20/21 02:56 03:32 03:32 WBC 13.2 H RBC 3.18 L Hgb Hct MCV RDW Plt Count Lymph % (Auto) Seg Neutrophils % Seg Neuts % (Manual) Lymphocytes % (Manual) Monocytes % (Manual) Seg Neutrophils # Seg Neutrophils # Man Lymphocytes # (Manual) Monocytes # (Manual) ABG pH 7.526 H POC ABG pCO2 POC ABG pO2 ABG Hemoglobin 10.5 L ABG Oxyhemoglobin ABG Sodium 133.5 L ABG Potassium ABG Chloride ABG Glucose 157 H Carboxyhemoglobin 0.3 L Sodium 135 L Potassium Chloride 96.7 L BUN 40 H Creatinine 2.3 H Glucose 142 H POC Glucose Calcium Phosphorus Magnesium AST ALT Total Creatine Kinase CK-MB (CK-2) Troponin T 0.065 H Total Protein Albumin HDL Cholesterol TSH Free T3 Index Arterial Blood Glucose 157 H Arterial Blood Ionized Calcium Urine pH Urine WBC (Auto) Urine Creatinine Acetaminophen 04/20/21 04/20/21 04/20/21 03:46 05:42 11:50 WBC RBC Hgb Hct MCV RDW Plt Count Lymph % (Auto) Seg Neutrophils % Seg Neuts % (Manual) Lymphocytes % (Manual) Monocytes % (Manual) Seg Neutrophils # Seg Neutrophils # Man Lymphocytes # (Manual) Monocytes # (Manual) ABG pH POC ABG pCO2 POC ABG pO2 ABG Hemoglobin ABG Oxyhemoglobin ABG Sodium ABG Potassium ABG Chloride ABG Glucose Carboxyhemoglobin Sodium Potassium Chloride BUN Creatinine Glucose POC Glucose 160 H 194 H Calcium Phosphorus 2.10 L Magnesium AST ALT Total Creatine Kinase CK-MB (CK-2) Troponin T Total Protein Albumin HDL Cholesterol TSH Free T3 Index Arterial Blood Glucose Arterial Blood Ionized Calcium Urine pH Urine WBC (Auto) Urine Creatinine Acetaminophen 04/20/21 04/20/21 04/21/21 17:09 23:18 05:26 WBC RBC Hgb Hct MCV RDW Plt Count Lymph % (Auto) Seg Neutrophils % Seg Neuts % (Manual) Lymphocytes % (Manual) Monocytes % (Manual) Seg Neutrophils # Seg Neutrophils # Man Lymphocytes # (Manual) Monocytes # (Manual) ABG pH POC ABG pCO2 POC ABG pO2 ABG Hemoglobin ABG Oxyhemoglobin ABG Sodium ABG Potassium ABG Chloride ABG Glucose Carboxyhemoglobin Sodium Potassium Chloride BUN Creatinine Glucose POC Glucose 153 H 162 H 164 H Calcium Phosphorus Magnesium AST ALT Total Creatine Kinase CK-MB (CK-2) Troponin T Total Protein Albumin HDL Cholesterol TSH Free T3 Index Arterial Blood Glucose Arterial Blood Ionized Calcium Urine pH Urine WBC (Auto) Urine Creatinine Acetaminophen 04/21/21 04/21/21 04/21/21 05:51 05:51 12:12 WBC RBC 3.20 L Hgb Hct MCV 99 H RDW 15.3 H Plt Count Lymph % (Auto) Seg Neutrophils % Seg Neuts % (Manual) Lymphocytes % (Manual) Monocytes % (Manual) Seg Neutrophils # Seg Neutrophils # Man Lymphocytes # (Manual) Monocytes # (Manual) ABG pH POC ABG pCO2 POC ABG pO2 ABG Hemoglobin ABG Oxyhemoglobin ABG Sodium ABG Potassium ABG Chloride ABG Glucose Carboxyhemoglobin Sodium Potassium Chloride 96.6 L BUN 42 H Creatinine 2.1 H Glucose 171 H POC Glucose 167 H Calcium Phosphorus Magnesium AST ALT Total Creatine Kinase CK-MB (CK-2) Troponin T Total Protein Albumin HDL Cholesterol TSH Free T3 Index Arterial Blood Glucose Arterial Blood Ionized Calcium Urine pH Urine WBC (Auto) Urine Creatinine Acetaminophen 04/21/21 04/21/21 04/22/21 17:13 23:42 05:29 WBC RBC Hgb Hct MCV RDW Plt Count Lymph % (Auto) Seg Neutrophils % Seg Neuts % (Manual) Lymphocytes % (Manual) Monocytes % (Manual) Seg Neutrophils # Seg Neutrophils # Man Lymphocytes # (Manual) Monocytes # (Manual) ABG pH POC ABG pCO2 POC ABG pO2 ABG Hemoglobin ABG Oxyhemoglobin ABG Sodium ABG Potassium ABG Chloride ABG Glucose Carboxyhemoglobin Sodium Potassium Chloride BUN Creatinine Glucose POC Glucose 178 H 253 H 208 H Calcium Phosphorus Magnesium AST ALT Total Creatine Kinase CK-MB (CK-2) Troponin T Total Protein Albumin HDL Cholesterol TSH Free T3 Index Arterial Blood Glucose Arterial Blood Ionized Calcium Urine pH Urine WBC (Auto) Urine Creatinine Acetaminophen 04/22/21 04/22/21 04/22/21 08:00 08:00 12:06 WBC 12.9 H RBC Hgb Hct MCV RDW Plt Count Lymph % (Auto) Seg Neutrophils % Seg Neuts % (Manual) Lymphocytes % (Manual) Monocytes % (Manual) Seg Neutrophils # Seg Neutrophils # Man Lymphocytes # (Manual) Monocytes # (Manual) ABG pH POC ABG pCO2 POC ABG pO2 ABG Hemoglobin ABG Oxyhemoglobin ABG Sodium ABG Potassium ABG Chloride ABG Glucose Carboxyhemoglobin Sodium Potassium Chloride BUN 47 H Creatinine 1.9 H Glucose 252 H POC Glucose 298 H Calcium Phosphorus Magnesium AST ALT Total Creatine Kinase CK-MB (CK-2) Troponin T Total Protein Albumin HDL Cholesterol TSH Free T3 Index Arterial Blood Glucose Arterial Blood Ionized Calcium Urine pH Urine WBC (Auto) Urine Creatinine Acetaminophen 04/22/21 04/22/21 04/23/21 17:34 23:01 05:08 WBC RBC Hgb Hct MCV RDW Plt Count Lymph % (Auto) Seg Neutrophils % Seg Neuts % (Manual) Lymphocytes % (Manual) Monocytes % (Manual) Seg Neutrophils # Seg Neutrophils # Man Lymphocytes # (Manual) Monocytes # (Manual) ABG pH POC ABG pCO2 POC ABG pO2 ABG Hemoglobin ABG Oxyhemoglobin ABG Sodium ABG Potassium ABG Chloride ABG Glucose Carboxyhemoglobin Sodium Potassium Chloride BUN Creatinine Glucose POC Glucose 259 H 280 H 223 H Calcium Phosphorus Magnesium AST ALT Total Creatine Kinase CK-MB (CK-2) Troponin T Total Protein Albumin HDL Cholesterol TSH Free T3 Index Arterial Blood Glucose Arterial Blood Ionized Calcium Urine pH Urine WBC (Auto) Urine Creatinine Acetaminophen 04/23/21 04/23/21 04/23/21 07:02 11:57 17:33 WBC RBC Hgb Hct MCV RDW Plt Count Lymph % (Auto) Seg Neutrophils % Seg Neuts % (Manual) Lymphocytes % (Manual) Monocytes % (Manual) Seg Neutrophils # Seg Neutrophils # Man Lymphocytes # (Manual) Monocytes # (Manual) ABG pH POC ABG pCO2 POC ABG pO2 ABG Hemoglobin ABG Oxyhemoglobin ABG Sodium ABG Potassium ABG Chloride ABG Glucose Carboxyhemoglobin Sodium Potassium Chloride 97.7 L BUN 57 H Creatinine 2.0 H Glucose 253 H POC Glucose 310 H 235 H Calcium Phosphorus Magnesium AST ALT Total Creatine Kinase CK-MB (CK-2) Troponin T Total Protein Albumin HDL Cholesterol TSH Free T3 Index Arterial Blood Glucose Arterial Blood Ionized Calcium Urine pH Urine WBC (Auto) Urine Creatinine Acetaminophen 04/23/21 04/24/21 04/24/21 23:15 05:23 05:46 WBC RBC Hgb Hct MCV RDW Plt Count Lymph % (Auto) Seg Neutrophils % Seg Neuts % (Manual) Lymphocytes % (Manual) Monocytes % (Manual) Seg Neutrophils # Seg Neutrophils # Man Lymphocytes # (Manual) Monocytes # (Manual) ABG pH POC ABG pCO2 POC ABG pO2 ABG Hemoglobin ABG Oxyhemoglobin ABG Sodium ABG Potassium ABG Chloride ABG Glucose Carboxyhemoglobin Sodium Potassium 5.2 H D Chloride BUN 68 H Creatinine 2.3 H Glucose 277 H POC Glucose 197 H 274 H Calcium Phosphorus Magnesium AST ALT Total Creatine Kinase CK-MB (CK-2) Troponin T Total Protein Albumin HDL Cholesterol TSH Free T3 Index Arterial Blood Glucose Arterial Blood Ionized Calcium Urine pH Urine WBC (Auto) Urine Creatinine Acetaminophen 04/24/21 04/24/21 04/24/21 11:33 11:52 17:49 WBC RBC Hgb Hct MCV RDW Plt Count Lymph % (Auto) Seg Neutrophils % Seg Neuts % (Manual) Lymphocytes % (Manual) Monocytes % (Manual) Seg Neutrophils # Seg Neutrophils # Man Lymphocytes # (Manual) Monocytes # (Manual) ABG pH POC ABG pCO2 POC ABG pO2 72.7 L ABG Hemoglobin 11.6 L ABG Oxyhemoglobin 92.9 L ABG Sodium ABG Potassium ABG Chloride ABG Glucose 269 H Carboxyhemoglobin Sodium Potassium Chloride BUN Creatinine Glucose POC Glucose 223 H 252 H Calcium Phosphorus Magnesium AST ALT Total Creatine Kinase CK-MB (CK-2) Troponin T Total Protein Albumin HDL Cholesterol TSH Free T3 Index Arterial Blood Glucose 269 H Arterial Blood Ionized Calcium Urine pH Urine WBC (Auto) Urine Creatinine Acetaminophen 04/24/21 04/24/21 04/25/21 21:00 23:48 03:06 WBC RBC Hgb Hct MCV RDW Plt Count Lymph % (Auto) Seg Neutrophils % Seg Neuts % (Manual) Lymphocytes % (Manual) Monocytes % (Manual) Seg Neutrophils # Seg Neutrophils # Man Lymphocytes # (Manual) Monocytes # (Manual) ABG pH 7.521 H 7.451 H POC ABG pCO2 POC ABG pO2 80.7 L 77.1 L ABG Hemoglobin 10.4 L 11.2 L ABG Oxyhemoglobin ABG Sodium ABG Potassium ABG Chloride ABG Glucose 186 H 165 H Carboxyhemoglobin 0 L Sodium Potassium Chloride BUN Creatinine Glucose POC Glucose 141 H Calcium Phosphorus Magnesium AST ALT Total Creatine Kinase CK-MB (CK-2) Troponin T Total Protein Albumin HDL Cholesterol TSH Free T3 Index Arterial Blood Glucose 186 H 165 H Arterial Blood Ionized Calcium Urine pH Urine WBC (Auto) Urine Creatinine Acetaminophen 04/25/21 04/25/21 04/25/21 03:56 03:56 06:03 WBC 12.3 H RBC 3.40 L Hgb Hct MCV RDW Plt Count Lymph % (Auto) Seg Neutrophils % Seg Neuts % (Manual) Lymphocytes % (Manual) Monocytes % (Manual) Seg Neutrophils # Seg Neutrophils # Man Lymphocytes # (Manual) Monocytes # (Manual) ABG pH POC ABG pCO2 POC ABG pO2 ABG Hemoglobin ABG Oxyhemoglobin ABG Sodium ABG Potassium ABG Chloride ABG Glucose Carboxyhemoglobin Sodium Potassium Chloride BUN 78 H Creatinine 2.5 H Glucose 152 H POC Glucose 171 H Calcium Phosphorus Magnesium AST ALT Total Creatine Kinase CK-MB (CK-2) Troponin T Total Protein Albumin HDL Cholesterol TSH Free T3 Index Arterial Blood Glucose Arterial Blood Ionized Calcium Urine pH Urine WBC (Auto) Urine Creatinine Acetaminophen 04/25/21 04/25/21 04/26/21 11:43 15:37 00:05 WBC RBC Hgb Hct MCV RDW Plt Count Lymph % (Auto) Seg Neutrophils % Seg Neuts % (Manual) Lymphocytes % (Manual) Monocytes % (Manual) Seg Neutrophils # Seg Neutrophils # Man Lymphocytes # (Manual) Monocytes # (Manual) ABG pH POC ABG pCO2 POC ABG pO2 ABG Hemoglobin ABG Oxyhemoglobin ABG Sodium ABG Potassium ABG Chloride ABG Glucose Carboxyhemoglobin Sodium Potassium Chloride BUN Creatinine Glucose POC Glucose 181 H 167 H 144 H Calcium Phosphorus Magnesium AST ALT Total Creatine Kinase CK-MB (CK-2) Troponin T Total Protein Albumin HDL Cholesterol TSH Free T3 Index Arterial Blood Glucose Arterial Blood Ionized Calcium Urine pH Urine WBC (Auto) Urine Creatinine Acetaminophen 04/26/21 04/26/21 04/26/21 04:30 05:44 09:30 WBC RBC Hgb Hct MCV RDW Plt Count Lymph % (Auto) Seg Neutrophils % Seg Neuts % (Manual) Lymphocytes % (Manual) Monocytes % (Manual) Seg Neutrophils # Seg Neutrophils # Man Lymphocytes # (Manual) Monocytes # (Manual) ABG pH 7.529 H POC ABG pCO2 POC ABG pO2 66.1 L ABG Hemoglobin 11.2 L ABG Oxyhemoglobin 92.8 L ABG Sodium ABG Potassium ABG Chloride ABG Glucose 216 H Carboxyhemoglobin 0.3 L Sodium Potassium Chloride BUN 82 H Creatinine 2.7 H Glucose 238 H POC Glucose 202 H Calcium Phosphorus Magnesium AST ALT Total Creatine Kinase CK-MB (CK-2) Troponin T Total Protein Albumin HDL Cholesterol TSH Free T3 Index Arterial Blood Glucose 216 H Arterial Blood Ionized Calcium Urine pH Urine WBC (Auto) Urine Creatinine Acetaminophen 04/26/21 04/26/21 04/26/21 09:30 11:32 17:21 WBC 24.7 H RBC 3.32 L Hgb Hct MCV RDW Plt Count Lymph % (Auto) Seg Neutrophils % Seg Neuts % (Manual) Lymphocytes % (Manual) Monocytes % (Manual) Seg Neutrophils # Seg Neutrophils # Man Lymphocytes # (Manual) Monocytes # (Manual) ABG pH POC ABG pCO2 POC ABG pO2 ABG Hemoglobin ABG Oxyhemoglobin ABG Sodium ABG Potassium ABG Chloride ABG Glucose Carboxyhemoglobin Sodium Potassium Chloride BUN Creatinine Glucose POC Glucose 245 H 264 H Calcium Phosphorus Magnesium AST ALT Total Creatine Kinase CK-MB (CK-2) Troponin T Total Protein Albumin HDL Cholesterol TSH Free T3 Index Arterial Blood Glucose Arterial Blood Ionized Calcium Urine pH Urine WBC (Auto) Urine Creatinine Acetaminophen 04/26/21 04/27/21 04/27/21 23:18 04:23 04:54 WBC RBC Hgb Hct MCV RDW Plt Count Lymph % (Auto) Seg Neutrophils % Seg Neuts % (Manual) Lymphocytes % (Manual) Monocytes % (Manual) Seg Neutrophils # Seg Neutrophils # Man Lymphocytes # (Manual) Monocytes # (Manual) ABG pH 7.549 H POC ABG pCO2 30.0 L POC ABG pO2 64.9 L ABG Hemoglobin 11 L ABG Oxyhemoglobin 93.3 L ABG Sodium ABG Potassium ABG Chloride ABG Glucose 325 H Carboxyhemoglobin 0.3 L Sodium Potassium Chloride BUN Creatinine Glucose POC Glucose 201 H 298 H Calcium Phosphorus Magnesium AST ALT Total Creatine Kinase CK-MB (CK-2) Troponin T Total Protein Albumin HDL Cholesterol TSH Free T3 Index Arterial Blood Glucose 325 H Arterial Blood Ionized Calcium Urine pH Urine WBC (Auto) Urine Creatinine Acetaminophen 04/27/21 04/27/21 04/27/21 07:52 07:52 11:22 WBC 23.0 H RBC 3.32 L Hgb Hct MCV RDW 15.5 H Plt Count Lymph % (Auto) Seg Neutrophils % Seg Neuts % (Manual) Lymphocytes % (Manual) Monocytes % (Manual) Seg Neutrophils # Seg Neutrophils # Man Lymphocytes # (Manual) Monocytes # (Manual) ABG pH POC ABG pCO2 POC ABG pO2 ABG Hemoglobin ABG Oxyhemoglobin ABG Sodium ABG Potassium ABG Chloride ABG Glucose Carboxyhemoglobin Sodium Potassium 3.5 L Chloride BUN 90 H Creatinine 2.8 H Glucose 286 H POC Glucose 251 H Calcium Phosphorus Magnesium AST ALT Total Creatine Kinase CK-MB (CK-2) Troponin T Total Protein Albumin HDL Cholesterol TSH Free T3 Index Arterial Blood Glucose Arterial Blood Ionized Calcium Urine pH Urine WBC (Auto) Urine Creatinine Acetaminophen 04/27/21 04/27/21 04/27/21 17:21 17:45 23:05 WBC RBC Hgb Hct MCV RDW Plt Count Lymph % (Auto) Seg Neutrophils % Seg Neuts % (Manual) Lymphocytes % (Manual) Monocytes % (Manual) Seg Neutrophils # Seg Neutrophils # Man Lymphocytes # (Manual) Monocytes # (Manual) ABG pH POC ABG pCO2 POC ABG pO2 ABG Hemoglobin ABG Oxyhemoglobin ABG Sodium ABG Potassium ABG Chloride ABG Glucose Carboxyhemoglobin Sodium Potassium Chloride BUN Creatinine Glucose POC Glucose 180 H 178 H 189 H Calcium Phosphorus Magnesium AST ALT Total Creatine Kinase CK-MB (CK-2) Troponin T Total Protein Albumin HDL Cholesterol TSH Free T3 Index Arterial Blood Glucose Arterial Blood Ionized Calcium Urine pH Urine WBC (Auto) Urine Creatinine Acetaminophen 04/28/21 04/28/21 04/28/21 03:14 04:13 04:13 WBC 17.6 H RBC 3.03 L Hgb 9.7 L Hct 29.5 L MCV RDW Plt Count Lymph % (Auto) Seg Neutrophils % Seg Neuts % (Manual) Lymphocytes % (Manual) Monocytes % (Manual) Seg Neutrophils # Seg Neutrophils # Man Lymphocytes # (Manual) Monocytes # (Manual) ABG pH 7.507 H POC ABG pCO2 POC ABG pO2 62.0 L ABG Hemoglobin 10.2 L ABG Oxyhemoglobin 91.9 L ABG Sodium ABG Potassium ABG Chloride ABG Glucose 337 H Carboxyhemoglobin 0.2 L Sodium Potassium Chloride BUN 101 H Creatinine 3.1 H Glucose 304 H POC Glucose Calcium Phosphorus Magnesium AST 61 H ALT 64 H Total Creatine Kinase CK-MB (CK-2) Troponin T Total Protein 6.2 L Albumin 2.6 L HDL Cholesterol TSH Free T3 Index Arterial Blood Glucose 337 H Arterial Blood Ionized Calcium Urine pH Urine WBC (Auto) Urine Creatinine Acetaminophen 04/28/21 04/28/21 04/28/21 05:01 11:28 18:23 WBC RBC Hgb Hct MCV RDW Plt Count Lymph % (Auto) Seg Neutrophils % Seg Neuts % (Manual) Lymphocytes % (Manual) Monocytes % (Manual) Seg Neutrophils # Seg Neutrophils # Man Lymphocytes # (Manual) Monocytes # (Manual) ABG pH POC ABG pCO2 POC ABG pO2 ABG Hemoglobin ABG Oxyhemoglobin ABG Sodium ABG Potassium ABG Chloride ABG Glucose Carboxyhemoglobin Sodium Potassium Chloride BUN Creatinine Glucose POC Glucose 282 H 263 H 200 H Calcium Phosphorus Magnesium AST ALT Total Creatine Kinase CK-MB (CK-2) Troponin T Total Protein Albumin HDL Cholesterol TSH Free T3 Index Arterial Blood Glucose Arterial Blood Ionized Calcium Urine pH Urine WBC (Auto) Urine Creatinine Acetaminophen 04/28/21 04/29/21 04/29/21 23:49 03:24 04:22 WBC RBC Hgb Hct MCV RDW Plt Count Lymph % (Auto) Seg Neutrophils % Seg Neuts % (Manual) Lymphocytes % (Manual) Monocytes % (Manual) Seg Neutrophils # Seg Neutrophils # Man Lymphocytes # (Manual) Monocytes # (Manual) ABG pH 7.546 H POC ABG pCO2 POC ABG pO2 52.4 L ABG Hemoglobin 10.5 L ABG Oxyhemoglobin 88.3 L ABG Sodium ABG Potassium ABG Chloride ABG Glucose 217 H Carboxyhemoglobin 0.4 L Sodium 148 H Potassium Chloride BUN 110 H Creatinine 3.1 H Glucose 208 H POC Glucose 238 H Calcium Phosphorus Magnesium AST ALT Total Creatine Kinase CK-MB (CK-2) Troponin T Total Protein Albumin HDL Cholesterol TSH Free T3 Index Arterial Blood Glucose 217 H Arterial Blood Ionized Calcium Urine pH Urine WBC (Auto) Urine Creatinine Acetaminophen 05/04/29/21 04/29/21 04:22 05:08 11:26 WBC 15.2 H RBC 3.30 L Hgb 9.8 L Hct MCV RDW Plt Count Lymph % (Auto) Seg Neutrophils % Seg Neuts % (Manual) Lymphocytes % (Manual) Monocytes % (Manual) Seg Neutrophils # Seg Neutrophils # Man Lymphocytes # (Manual) Monocytes # (Manual) ABG pH POC ABG pCO2 POC ABG pO2 ABG Hemoglobin ABG Oxyhemoglobin ABG Sodium ABG Potassium ABG Chloride ABG Glucose Carboxyhemoglobin Sodium Potassium Chloride BUN Creatinine Glucose POC Glucose 181 H 218 H Calcium Phosphorus Magnesium AST ALT Total Creatine Kinase CK-MB (CK-2) Troponin T Total Protein Albumin HDL Cholesterol TSH Free T3 Index Arterial Blood Glucose Arterial Blood Ionized Calcium Urine pH Urine WBC (Auto) Urine Creatinine Acetaminophen 04/29/21 04/29/21 04/30/21 17:06 23:06 03:58 WBC RBC Hgb Hct MCV RDW Plt Count Lymph % (Auto) Seg Neutrophils % Seg Neuts % (Manual) Lymphocytes % (Manual) Monocytes % (Manual) Seg Neutrophils # Seg Neutrophils # Man Lymphocytes # (Manual) Monocytes # (Manual) ABG pH 7.547 H POC ABG pCO2 31.3 L POC ABG pO2 58.4 L ABG Hemoglobin 9.6 L ABG Oxyhemoglobin 91.1 L ABG Sodium ABG Potassium ABG Chloride 108.0 H ABG Glucose 248 H Carboxyhemoglobin 0.2 L Sodium Potassium Chloride BUN Creatinine Glucose POC Glucose 223 H 252 H Calcium Phosphorus Magnesium AST ALT Total Creatine Kinase CK-MB (CK-2) Troponin T Total Protein Albumin HDL Cholesterol TSH Free T3 Index Arterial Blood Glucose 248 H Arterial Blood Ionized Calcium Urine pH Urine WBC (Auto) Urine Creatinine Acetaminophen 04/30/21 04/30/21 04/30/21 05:23 05:54 11:47 WBC RBC Hgb Hct MCV RDW Plt Count Lymph % (Auto) Seg Neutrophils % Seg Neuts % (Manual) Lymphocytes % (Manual) Monocytes % (Manual) Seg Neutrophils # Seg Neutrophils # Man Lymphocytes # (Manual) Monocytes # (Manual) ABG pH POC ABG pCO2 POC ABG pO2 ABG Hemoglobin ABG Oxyhemoglobin ABG Sodium ABG Potassium ABG Chloride ABG Glucose Carboxyhemoglobin Sodium Potassium Chloride BUN 118 H Creatinine 3.3 H Glucose 263 H POC Glucose 244 H 237 H Calcium Phosphorus Magnesium AST ALT Total Creatine Kinase CK-MB (CK-2) Troponin T Total Protein Albumin HDL Cholesterol TSH Free T3 Index Arterial Blood Glucose Arterial Blood Ionized Calcium Urine pH Urine WBC (Auto) Urine Creatinine Acetaminophen 04/30/21 04/30/21 04/30/21 17:26 17:45 23:51 WBC RBC Hgb Hct MCV RDW Plt Count Lymph % (Auto) Seg Neutrophils % Seg Neuts % (Manual) Lymphocytes % (Manual) Monocytes % (Manual) Seg Neutrophils # Seg Neutrophils # Man Lymphocytes # (Manual) Monocytes # (Manual) ABG pH POC ABG pCO2 POC ABG pO2 ABG Hemoglobin ABG Oxyhemoglobin ABG Sodium ABG Potassium ABG Chloride ABG Glucose Carboxyhemoglobin Sodium Potassium Chloride BUN Creatinine Glucose POC Glucose 193 H 197 H Calcium Phosphorus Magnesium AST ALT Total Creatine Kinase CK-MB (CK-2) Troponin T Total Protein Albumin HDL Cholesterol TSH Free T3 Index Arterial Blood Glucose Arterial Blood Ionized Calcium Urine pH Urine WBC (Auto) 48.0 H Urine Creatinine Acetaminophen 05/01/21 05/01/21 05/01/21 04:02 04:57 07:11 WBC 12.3 H RBC 2.83 L Hgb 8.8 L Hct 27.3 L MCV RDW Plt Count Lymph % (Auto) Seg Neutrophils % Seg Neuts % (Manual) 80.0 H Lymphocytes % (Manual) 5.0 L Monocytes % (Manual) Seg Neutrophils # Seg Neutrophils # Man 9.8 H Lymphocytes # (Manual) 0.6 L Monocytes # (Manual) ABG pH 7.466 H POC ABG pCO2 POC ABG pO2 61.4 L ABG Hemoglobin 9.0 L ABG Oxyhemoglobin 91.1 L ABG Sodium ABG Potassium ABG Chloride 110.0 H ABG Glucose 245 H Carboxyhemoglobin Sodium Potassium Chloride BUN Creatinine Glucose POC Glucose 193 H Calcium Phosphorus Magnesium AST ALT Total Creatine Kinase CK-MB (CK-2) Troponin T Total Protein Albumin HDL Cholesterol TSH Free T3 Index Arterial Blood Glucose 245 H Arterial Blood Ionized Calcium Urine pH Urine WBC (Auto) Urine Creatinine Acetaminophen 05/01/21 05/01/21 05/01/21 07:11 07:45 11:30 WBC RBC Hgb Hct MCV RDW Plt Count Lymph % (Auto) Seg Neutrophils % Seg Neuts % (Manual) Lymphocytes % (Manual) Monocytes % (Manual) Seg Neutrophils # Seg Neutrophils # Man Lymphocytes # (Manual) Monocytes # (Manual) ABG pH POC ABG pCO2 POC ABG pO2 ABG Hemoglobin ABG Oxyhemoglobin ABG Sodium ABG Potassium ABG Chloride ABG Glucose Carboxyhemoglobin Sodium 146 H Potassium Chloride 108.4 H BUN 122 H Creatinine 3.4 H Glucose 235 H POC Glucose 212 H 247 H Calcium Phosphorus Magnesium AST ALT Total Creatine Kinase CK-MB (CK-2) Troponin T Total Protein Albumin HDL Cholesterol TSH Free T3 Index Arterial Blood Glucose Arterial Blood Ionized Calcium Urine pH Urine WBC (Auto) Urine Creatinine Acetaminophen 05/01/21 05/01/21 05/01/21 11:31 17:42 23:49 WBC RBC Hgb Hct MCV RDW Plt Count Lymph % (Auto) Seg Neutrophils % Seg Neuts % (Manual) Lymphocytes % (Manual) Monocytes % (Manual) Seg Neutrophils # Seg Neutrophils # Man Lymphocytes # (Manual) Monocytes # (Manual) ABG pH POC ABG pCO2 POC ABG pO2 ABG Hemoglobin ABG Oxyhemoglobin ABG Sodium ABG Potassium ABG Chloride ABG Glucose Carboxyhemoglobin Sodium Potassium Chloride BUN Creatinine Glucose POC Glucose 258 H 171 H 167 H Calcium Phosphorus Magnesium AST ALT Total Creatine Kinase CK-MB (CK-2) Troponin T Total Protein Albumin HDL Cholesterol TSH Free T3 Index Arterial Blood Glucose Arterial Blood Ionized Calcium Urine pH Urine WBC (Auto) Urine Creatinine Acetaminophen 05/02/21 05/02/21 05:12 08:34 WBC RBC Hgb Hct MCV RDW Plt Count Lymph % (Auto) Seg Neutrophils % Seg Neuts % (Manual) Lymphocytes % (Manual) Monocytes % (Manual) Seg Neutrophils # Seg Neutrophils # Man Lymphocytes # (Manual) Monocytes # (Manual) ABG pH POC ABG pCO2 POC ABG pO2 ABG Hemoglobin ABG Oxyhemoglobin ABG Sodium ABG Potassium ABG Chloride ABG Glucose Carboxyhemoglobin Sodium 148 H Potassium Chloride 110.4 H BUN 124 H Creatinine 3.4 H Glucose 208 H POC Glucose 163 H Calcium 8.3 L Phosphorus Magnesium AST ALT Total Creatine Kinase CK-MB (CK-2) Troponin T Total Protein Albumin HDL Cholesterol TSH Free T3 Index Arterial Blood Glucose Arterial Blood Ionized Calcium Urine pH Urine WBC (Auto) Urine Creatinine Acetaminophen Chest x-ray: other (none today) Allied health notes reviewed: nursing
[2021-05-02] MEDS: LATANOPROST 0.005% OPHTH SOLN 2.5 ML OU SCH (18:27)
--- NOTE | 2021-05-02 19:05 | Progress Note ---
Assessment and Plan Assessment and plan: This is a 80-year-old female with HTN, DM, ID, breast CA s/p double mastectomy, TIA who presented with hypoglycemia, AMS who was admitted with SIRS, symptomatic bradycardia, acute metabolic encephalopathy, acute hypoxic respiratory failure, elevated TSH, hyperglycemia, hyponatremia, hypokalemia, ROJELIO and rhabdomyolysis Acute metabolic encephalopathy-persist Acute hypoxic respiratory failure (extubated 04/20)- Re-intubated secondary to Stridor and paradoxical breathing First-degree heart block Resolved ileus versus mechanical obstruction Acute kidney injury with vasomotor nephropathy UTI, Pseudomonas Hypernatremia Hyperchloremia Elevated TSH Leukocytosis Mild rhabdomyolysis Hypertension Diabetes mellitus with hyperglycemia on admission CAD Hypothyrodisim Chronic illness debilitymyopathy Obesity -CCM, nephrology, neurology, cardiology consulted, patient recommendations -S/p D10 and D5W gtt, on TF -S/p IV calcium gluconate, regular insulin, D50 -S/p transcutaneous pacing, intermittent demand pacer in place -Renal ultrasound findings consistent with acute on chronic kidney disease, mildly complex right renal cyst -Blood pressure monitoring per protocol -Accu-Cheks every 6, SSI, long acting insulin -IV hydralazine as needed -04/25 EEG is mildly abnormal with mild slowing noted throughout the recording, suggestive of mild cortical dysfunction and/or drug effect -04/20 EEG shows mildly abnormal record due to diffuse background slowing noted throughout the recording, intermittent motion artifact, patient intubated and sedated at time of study, no sign of seizures as well epilepticus noted, possible toxic metabolic encephalopathy, drug effect, possible postictal state cannot be totally excluded. -Avoid ACEi/ARB in setting of ROJELIO -Avoid AV arron blocking agents -Avoid nephrotoxic agents and renally dose medications -BB, add home antihtn regimen as needed -TSH 14.1, T4 4.1, T3 pending-started on levothyroxine -Provegil -As needed racemic epinephrine -S/p steroids -Antibiotic therapy -Trend CBC, BMP, CK DVT/GI prophylaxis: Heparin subcu, PPI, SCDs to bilateral lower extremities w hile in bed Disposition: ICU The high probability of a clinically significant, sudden or life threatening deterioration of the [PULMONARY, CARDIAC, RENAL] system(s) required my full and direct attention, intervention and personal management. The aggregate critical care time was [35] minutes. This time is in addition to time spent performing reported procedures but includes the following: [X] Data Review and interpretation [X] Patient assessment and monitoring of vital signs [X] Documentation [X] Medication orders and management History Interval history: This is a 80-year-old female with hypertension, diabetes mellitus, ID, breast cancer s/p double mastectomy, and a TIA who presented with hypoglycemia and altered mental status on 04/15 via EMS. Per EMS patient was unresponsive on their arrival and her blood glucose was 38 and she received 1 amp of dextrose patient continued to be unresponsive and only moaned with her eyes deviating to the left. Work-up in the emergency department revealed SIRS, symptomatic bradycardia, acute metabolic encephalopathy, acute hypoxic respiratory failure, elevated TSH, hyperglycemia, hyponatremia, hyperkalemia, acute kidney injury with ATN, and rhabdomyolysis 04/16: Neurology consulted, COVID-19 PCR negative, D10 drip decreased and eventually discontinued by [facility] and started on D5W for 1 L. Hydralazine as needed. Patient had hyper kalemia today and was treated with D50, insulin and Kayexalate. This time examination patient is on assist control tidal volume 450, rate of 16, PEEP of 6 and 25% FiO2. 04/17: Patient started on low-dose beta-angel per cardiology, CPAP trial again per [facility], BUN/creatinine holding steady and hypochloremia/hyponatremia slightly improved and hypokalemia has resolved. This morning a KUB was obtained which was concerning for ileus versus mechanical obstruction and surgery was consulted. Patient was made n.p.o. and NG tube placed to wall suction. Patient was given suppository. Per RN patient did not have a BM even though she was given Kayexalate yesterday. Will obtain a KUB in the a.m. Neurology was consulted yesterday and will await further recommendations. Nephew updated at bedside today, Carlos Romero. 04/18: Neurology has ordered EEG/MRI B, [facility] continues to wean MV. Persistent low grade temperature so we will obtain BCx2/UA. Patient has improving leukocytosis, hyponatremia, renal function studies and hypochloremia. She has hypokalemia today which is being repleted. Surgery has signed off today and has okayed resumption of TF. [facility] will trial CPAP for longer today and plans to attempt extubation in AM. Family has requested transfer to [facility] and Dr. Gordon will attempt to contact transfer center. I updated her nephew, Carlos Romero over the phone today abouyt current events and update on transfer ([facility] will conduct a utilization review) 04/19: This morning patient is on CPAP trial at the time of examination, noted to be hypertensive and metoprolol increased to home dose, started on synthroid by CCM, lantus started re hyperglycemia, MRI completed with no acute findings. Severe hypokalemia (repleted and Mg pending). CCM will contact CPAP trial again today with possible trial extubation tomorrow. 04/20: Patient's leukocytosis and kidney function tests continue to improve. Patient is hypertensive overnight we will restart home hydralazine. [facility] plans to extubate patient today. Family is attempting to transfer [facility]. EEG pending, RT will atmept to contact electroencephalograph technologist. Urine culture grew gram negative rods. Increase in lantus 04/21: Increase in Lantus, repleted phos. Patient has started this afternoon and was given racemic epinephrine and started on steroids. Patient will have BiPAP as needed. We will recheck BMP in the a.m. renal function studies continues to decrease. Patient has been hypertensive on evaluation regimen has been changed. 04/22: Lantus increased for hyperglycemia and add amlodipine for better BP control. Patient is on steroids. OT suctioned by RN with catheter in oral care kit and received copious amounts of secretions. Cr continues to decrease. Culture grew Pseudomonas and was changed in accordance to sensitivity. Kerr removed today after clearance from nephrology. 04/23: MRI of the brain was done and unremarkable. Will obtain reconsult to nephrology for further assistance as patient remains in profound encephalopathy despite improvement of blood sugar. Will repeat chest x-ray as patient does have significant congestion physical exam. Tube feeds still ongoing. Continue aspiration precautions. Continue antibiotics when completed for Pseudomonas management 04/24: Neurology input noted, patient unfortunately with no improvement mental status [place], continues with congestion, will defer with Shoe Repairer for lasix in the setting of renal failure. will give kayexlate for hyperkalemia, still moans and groans, mittens in place. 04/25: Patient currently intubated, on restraints for safety, Profund encephalopathy persist, although awake she is not following any commands, Call placed to [facility] to see if they will accept transfer for ENT evaluation, while CT neck was negative, it was degraded by motion and unable to determent why patient had this stridor, Racemic Epinephrine was given, [facility] is on ICU saturation, but will call back with an ENT to discuss case. Renal function mildly worse, continue to monitor. Per cardiology, no further arrhythmias noted since admission. Given short duration of atrial fibrillation, along with pt's age, renal fxn, and other co- morbidities,...will resume additional medical therapies for underlying severe multi-vessel CAD (bASA & Plavix). Pt has previously declined intervention of known lesions as per her Primary Video Arcade Manager. 04/26: Now with febrile illness, ?developing infection, start on empiric abx, check lactate level, blood cultures, continue management per Bone Char Operator, Monitor leukocytosis, agree with Trach, family updated about denials in transfer request from outside hospitals. 04/27: WBC improving some, still with fever despite antibotics, ID consulted. CXR clear, continue current management, Trach will be planned if ok with family. Blood sugar remains elevated, will adjust insulin LANTUS to 40 units. Patient had previously completed Cefepime. Mental status remains unchanged, still moves upper ext. continue restraints 04/28: Continue supportive care. No new fever noted. Critical care physician will determine if patient should be have a trial of extubation again or if we should proceed straight to trach. Again continue to monitor mental status for complete improvement. 04/29: Per Bone Char Operator discussion with family, will proceed to Tracheostomy, Patients mental status still fluctuating, Continue current management. Surgeon consulted. 04/30: General surgery consulted for trach, continue to trend CBC and BMP. Kidney function slightly worsened today. Increase in Lantus. Tmax 100.2, per ID will consider imaging if leukocytosis remains elevated with fevers. Plavix held for possible tracheostomy next week. 05/01: Patient fever curve is trending down with improving leukocytosis. Patient renal function worsened today. She remains hyperglycemic and her Lantus was increased to her home dose of Novolin 70/30. Patient was rate controlled yesterday due to T-max of 101. She remains on CMV tidal volume 450, rate of 10, PEEP of 6 and 30% FiO2. We will increase the water flushes given slight hypernatremia. Dr. Andrea updated nephew (Carlos) at bedside. CPAP trails. 05/02: Patient's hypernatremia and hyperchloremia slightly worsened and femur fractures were increased. Kidney functions remain the same however BUN is in the 100s. Nephrology is following. Kerr catheter was removed. Awaiting trach placement with possibility on Friday. Hospitalist Physical - Constitutional Vitals: Temp Pulse Resp BP Pulse Ox 98.4 F 82 20 119/53 97 05/02/21 12:00 05/02/21 18:01 05/02/21 18:01 05/02/21 18:01 05/02/21 18:01 General appearance: Present: no acute distress, other (sedated) - EENT Eyes: Present: PERRL, EOM intact ENT: hearing intact - Neck Neck: Present: normal ROM - Respiratory Respiratory effort: normal Respiratory: bilateral: diminished - Cardiovascular Rhythm: regular Heart Sounds: Present: S1 & S2 - Extremities Extremities: no ischemia, pulses intact, pulses symmetrical, No edema, normal temperature, normal color Peripheral Pulses: within normal limits - Abdominal General gastrointestinal: soft, non-tender, non-distended, normal bowel sounds - Integumentary Integumentary: Present: clear, warm, dry - Psychiatric Psychiatric: cooperative - Neurologic Neurologic: CNII-XII intact, moves all extremities - Allied Health Allied health notes reviewed: nursing, RT HEART Score - HEART Score Troponin: Troponin T 0.065 ng/mL (0.00-0.029) H 04/20/21 03:32 Results - Labs CBC & Chem 7: 05/01/21 07:11 05/02/21 08:34 Labs: Laboratory Last Values WBC 12.3 K/mm3 (4.5-11.0) H 05/01/21 07:11 RBC 2.83 M/mm3 (3.65-5.03) L 05/01/21 07:11 Hgb 8.8 gm/dl (10.1-14.3) L 05/01/21 07:11 Hct 27.3 % (30.3-42.9) L 05/01/21 07:11 MCV 96 fl (79-97) 05/01/21 07:11 MCH 31 pg (28-32) 05/01/21 07:11 MCHC 32 % (30-34) 05/01/21 07:11 RDW 15.2 % (13.2-15.2) 05/01/21 07:11 Plt Count 298 K/mm3 (140-440) 05/01/21 07:11 Lymph % (Auto) 12.8 % (13.4-35.0) L 04/15/21 17:20 [place] % (Auto) 4.1 % (0.0-7.3) 04/15/21 17:20 Eos % (Auto) 0.3 % (0.0-4.3) 04/15/21 17:20 Baso % (Auto) 0.4 % (0.0-1.8) 04/15/21 17:20 Lymph # (Auto) 1.4 K/mm3 (1.2-5.4) 04/15/21 17:20 [place] # (Auto) 0.5 K/mm3 (0.0-0.8) 04/15/21 17:20 Eos # (Auto) 0.0 K/mm3 (0.0-0.4) 04/15/21 17:20 Baso # (Auto) 0.0 K/mm3 (0.0-0.1) 04/15/21 17:20 Add Manual Diff Complete 05/01/21 07:11 Total Counted 100 05/01/21 07:11 Seg Neutrophils % 82.4 % (40.0-70.0) H 04/15/21 17:20 Seg Neuts % (Manual) 80.0 % (40.0-70.0) H 05/01/21 07:11 Band Neutrophils % 7.0 % 05/01/21 07:11 Lymphocytes % (Manual) 5.0 % (13.4-35.0) L 05/01/21 07:11 Monocytes % (Manual) 6.0 % (0.0-7.3) 05/01/21 07:11 Eosinophils % (Manual) 1.0 % (0.0-4.3) 05/01/21 07:11 Metamyelocytes % 1.0 % 05/01/21 07:11 Nucleated RBC % Not Reportable 05/01/21 07:11 Seg Neutrophils # 9.3 K/mm3 (1.8-7.7) H 04/15/21 17:20 Seg Neutrophils # Man 9.8 K/mm3 (1.8-7.7) H 05/01/21 07:11 Band Neutrophils # 0.9 K/mm3 05/01/21 07:11 Lymphocytes # (Manual) 0.6 K/mm3 (1.2-5.4) L 05/01/21 07:11 Abs React Lymphs (Man) 0.0 K/mm3 05/01/21 07:11 Monocytes # (Manual) 0.7 K/mm3 (0.0-0.8) 05/01/21 07:11 Eosinophils # (Manual) 0.1 K/mm3 (0.0-0.4) 05/01/21 07:11 Basophils # (Manual) 0.0 K/mm3 (0.0-0.1) 05/01/21 07:11 Metamyelocytes # 0.1 K/mm3 05/01/21 07:11 Myelocytes # 0.0 K/mm3 05/01/21 07:11 Promyelocytes # 0.0 K/mm3 05/01/21 07:11 Blast Cells # 0.0 K/mm3 05/01/21 07:11 WBC Morphology Not Reportable 05/01/21 07:11 Hypersegmented Neuts Not Reportable 05/01/21 07:11 Hyposegmented Neuts Not Reportable 05/01/21 07:11 Hypogranular Neuts Not Reportable 05/01/21 07:11 Smudge Cells Not Reportable 05/01/21 07:11 Toxic Granulation Not Reportable 05/01/21 07:11 Toxic Vacuolation Not Reportable 05/01/21 07:11 Dohle Bodies Not Reportable 05/01/21 07:11 Pelger-Huet Anomaly Not Reportable 05/01/21 07:11 Peterson Rods Not Reportable 05/01/21 07:11 Platelet Estimate Consistent w auto 05/01/21 07:11 Clumped Platelets Not Reportable 05/01/21 07:11 Plt Clumps, EDTA Not Reportable 05/01/21 07:11 Large Platelets Not Reportable 05/01/21 07:11 Giant Platelets Not Reportable 05/01/21 07:11 Platelet Satelliting Not Reportable 05/01/21 07:11 Plt Morphology Comment Not Reportable 05/01/21 07:11 RBC Morphology Normal 05/01/21 07:11 Dimorphic RBCs Not Reportable 05/01/21 07:11 Polychromasia Not Reportable 05/01/21 07:11 Hypochromasia Not Reportable 05/01/21 07:11 Poikilocytosis Not Reportable 05/01/21 07:11 Anisocytosis Not Reportable 05/01/21 07:11 Microcytosis Not Reportable 05/01/21 07:11 Macrocytosis Not Reportable 05/01/21 07:11 Spherocytes Not Reportable 05/01/21 07:11 Pappenheimer Bodies Not Reportable 05/01/21 07:11 Sickle Cells Not Reportable 05/01/21 07:11 Target Cells Not Reportable 05/01/21 07:11 Tear Drop Cells Not Reportable 05/01/21 07:11 Ovalocytes Not Reportable 05/01/21 07:11 Helmet Cells Not Reportable 05/01/21 07:11 [place] Bodies Not Reportable 05/01/21 07:11 [place] Rings Not Reportable 05/01/21 07:11 [place] Cells Not Reportable 05/01/21 07:11 Bite Cells Not Reportable 05/01/21 07:11 Crenated Cell Not Reportable 05/01/21 07:11 Elliptocytes Not Reportable 05/01/21 07:11 Acanthocytes (Spur) Not Reportable 05/01/21 07:11 Rouleaux Not Reportable 05/01/21 07:11 Hemoglobin C Crystals Not Reportable 05/01/21 07:11 Schistocytes Not Reportable 05/01/21 07:11 Malaria parasites Not Reportable 05/01/21 07:11 James Bodies Not Reportable 05/01/21 07:11 Hem Pathologist Commnt No 05/01/21 07:11 PT 12.2 Sec. (12.2-14.9) 04/15/21 17:20 INR 0.91 (0.87-1.13) 04/15/21 17:20 APTT 31.8 Sec. (24.2-36.6) 04/15/21 17:20 ABG pH 7.466 (7.320-7.450) H 05/01/21 04:02 POC ABG pCO2 35.9 mmHg (32.0-48.0) 05/01/21 04:02 POC ABG pO2 61.4 mmHg (83-108) L 05/01/21 04:02 POC ABG HCO3 25.3 05/01/21 04:02 ABG O2 Saturation 91.9 (0-100) 05/01/21 04:02 POC ABG Base Excess 1.6 05/01/21 04:02 ABG Hemoglobin 9.0 (12.0-17.5) L 05/01/21 04:02 ABG Oxyhemoglobin 91.1 (94-98) L 05/01/21 04:02 ABG Methemoglobin 0.3 (0.0-1.5) 05/01/21 04:02 ABG Sodium 143.6 mmol/L (136.0-145.0) 05/01/21 04:02 ABG Potassium 3.5 mmol/L (3.40-4.50) 05/01/21 04:02 ABG Chloride 110.0 mmol/L (98-107) H 05/01/21 04:02 ABG Glucose 245 mg/dL (65-95) H 05/01/21 04:02 Carboxyhemoglobin 0.6 (0.5-1.5) 05/01/21 04:02 FiO2 % 30.0 05/01/21 04:02 Sodium 148 mmol/L (137-145) H 05/02/21 08:34 Potassium 3.7 mmol/L (3.6-5.0) 05/02/21 08:34 Chloride 110.4 mmol/L (98-107) H 05/02/21 08:34 Carbon Dioxide 27 mmol/L (22-30) 05/02/21 08:34 Anion Gap 14 mmol/L 05/02/21 08:34 BUN 124 mg/dL (7-17) H 05/02/21 08:34 Creatinine 3.4 mg/dL (0.6-1.2) H 05/02/21 08:34 Estimated GFR 16 ml/min 05/02/21 08:34 BUN/Creatinine Ratio 36 % 05/02/21 08:34 Glucose 208 mg/dL (65-100) H 05/02/21 08:34 POC Glucose 185 mg/dL (70-105) H 05/02/21 11:53 Lactic Acid 1.10 mmol/L (0.7-2.0) 04/26/21 09:30 Calcium 8.3 mg/dL (8.4-10.2) L 05/02/21 08:34 Phosphorus 2.60 mg/dL (2.5-4.5) 04/22/21 08:00 Magnesium 2.10 mg/dL (1.7-2.3) 04/23/21 07:02 Total Bilirubin 0.30 mg/dL (0.1-1.2) 04/28/21 04:13 Direct Bilirubin < 0.2 mg/dL (0-0.2) 04/28/21 04:13 Indirect Bilirubin 0.1 mg/dL 04/28/21 04:13 AST 61 units/L (5-40) H 04/28/21 04:13 ALT 64 units/L (7-56) H 04/28/21 04:13 Alkaline Phosphatase 95 units/L (35-129) 04/28/21 04:13 Ammonia 46.0 umol/L (25-60) 04/15/21 17:20 Total Creatine Kinase 427 units/L (30-135) H 04/18/21 05:34 CK-MB (CK-2) 9.1 ng/mL (0.0-4.0) H 04/17/21 15:35 CK-MB (CK-2) Rel Index 1.4 (0-4) 04/17/21 15:35 Troponin T 0.065 ng/mL (0.00-0.029) H 04/20/21 03:32 NT-Pro-B Natriuret Pep 697.9 pg/mL (0-900) 04/15/21 17:20 Total Protein 6.2 g/dL (6.3-8.2) L 04/28/21 04:13 Albumin 2.6 g/dL (3.9-5) L 04/28/21 04:13 Albumin/Globulin Ratio 0.7 % 04/28/21 04:13 Triglycerides 103 mg/dL (2-149) 04/17/21 05:04 Cholesterol 122 mg/dL (50-199) 04/17/21 05:04 LDL Cholesterol Direct 55 mg/dL (50-130) 04/17/21 05:04 HDL Cholesterol 61 mg/dL (40-59) H 04/17/21 05:04 Cholesterol/HDL Ratio 2.00 % 04/17/21 05:04 Procalcitonin 0.20 ng/mL (<0.15) 04/16/21 19:01 TSH 14.190 mlU/mL (0.270-4.200) H 04/15/21 17:20 Thyroxine (T4) 4.1 ug/dL (4.0-12.0) 04/16/21 19:01 Free T3 Index 1.1 pg/mL (2.3-4.2) L 04/16/21 19:01 Arterial Blood Glucose 245 mg/dL (65-95) H 05/01/21 04:02 Arterial Blood Ionized Calcium 5.0 mg/dL (4.6-5.3) 05/01/21 04:02 Urine Color Yellow (Yellow) 04/30/21 17:45 Urine Turbidity Cloudy (Clear) 04/30/21 17:45 Urine pH 5.0 (5.0-7.0) 04/30/21 17:45 Ur Specific [place] 1.016 (1.003-1.030) 04/30/21 17:45 Urine Protein 100 mg/dl mg/dL (Negative) 04/30/21 17:45 Urine Glucose (UA) Neg mg/dL (Negative) 04/30/21 17:45 Urine Ketones Neg mg/dL (Negative) 04/30/21 17:45 Urine Blood Mod (Negative) 04/30/21 17:45 Urine Nitrite Neg (Negative) 04/30/21 17:45 Urine Bilirubin Neg (Negative) 04/30/21 17:45 Urine Urobilinogen < 2.0 mg/dL (<2.0) 04/30/21 17:45 Ur Leukocyte Esterase Mod (Negative) 04/30/21 17:45 Urine WBC (Auto) 48.0 /HPF (0.0-6.0) H 04/30/21 17:45 Urine RBC (Auto) 103.0 /HPF (0.0-6.0) 04/30/21 17:45 U Epithel Cells (Auto) < 1.0 /HPF (0-13.0) 04/16/21 00:09 Urine Bacteria (Auto) 1+ /HPF (Negative) 04/16/21 00:09 Urine Mucus Few /HPF 04/30/21 17:45 Urine Yeast (Budding) 3+ /HPF 04/30/21 17:45 Urine Creatinine 24.4 mg/dL (0.1-20.0) H 04/16/21 00:12 Urine Sodium 97 mmol/L 04/16/21 00:12 Random Vancomycin 15.5 ug/mL (0-40.0) 04/27/21 07:52 Salicylates 4.1 mg/dL (2.8-20.0) 04/15/21 17:20 Acetaminophen 5.0 ug/mL (10.0-30.0) L 04/15/21 17:20 Plasma/Serum Alcohol 0.02 % (0-0.07) 04/15/21 17:20 Coronavirus (PCR) Negative (Negative) 04/16/21 Unknown Microbiology: Microbiology 04/30/21 16:07 Peripheral/Venous Blood Culture - Preliminary NO GROWTH AFTER 48 HOURS 04/30/21 16:07 Peripheral/Venous Blood Culture - Preliminary NO GROWTH AFTER 48 HOURS 04/30/21 17:45 Urine,Clean Catch Urine Culture - Final Earline Albicans Kerr/IV: Voiding Method Indwelling Catheter Active Medications - Current Medications Current Medications: Generic Name Dose Route Start Last Admin Trade Name Freq PRN Reason Stop Dose Admin Acetaminophen 650 mg 04/15/21 19:11 04/30/21 20:14 Acetaminophen 325 Mg Tab PO 650 mg Q6H PRN Administration Pain MILD(1-3)/Fever >100.5/SEXTON Albuterol/Ipratropium 1 ampul 04/24/21 14:00 05/02/21 15:08 Ipratropium/Albuterol Sulfate 3 Ml Ampul.Neb IH 1 ampul Q6HRT WOLFGANG Administration Amlodipine Besylate 10 mg 04/25/21 10:00 05/02/21 09:14 Amlodipine 10 Mg Tab PO 10 mg DAILY WOLFGANG Administration Lipase/Protease/Amylase 1 each 04/16/21 12:52 Lipase 10,500/Protease 25,000/Amylase 43,750 (Units) Dr Calvin PURDYTUBE PRN PRN For Clogged Feeding Tube Aspirin 81 mg 04/25/21 10:00 05/02/21 09:14 Aspirin 81 Mg Tab Chew PO 81 mg QDAY WOLFGANG Administration Bisacodyl 10 mg 04/17/21 11:01 04/28/21 21:04 Bisacodyl 10 Mg Rect Supp AR 10 mg QDAY PRN Administration Constipation Brimonidine Tartrate 1 drops 04/17/21 22:00 05/02/21 09:09 Brimonidine 0.15% Ophth Soln OU 1 drops BID WOLFGANG Administration Docusate Sodium 100 mg 04/29/21 15:00 05/02/21 09:06 Docusate Sodium 100 Mg/10 Ml Oral Liqd PO 100 mg BID WOLFGANG Administration Epinephrine 0.5 ml 04/21/21 12:56 Epinephrine Racemic 2.25% 0.5ml Nebu IH Q4HRT PRN Shortness Of Breath Famotidine 20 mg 04/17/21 10:00 05/02/21 09:06 Famotidine 20 Mg Tab PO 20 mg DAILY WOLFGANG Administration Fentanyl 50 mcg 04/24/21 13:03 Fentanyl 100 Mcg/2 Ml Inj IV Q10MIN PRN ANALGESIA Heparin Sodium (Porcine) 5,000 unit 04/15/21 22:00 05/02/21 09:05 Heparin 5,000 Unit/1 Ml Vial SUB-Q 5,000 unit Q12HR WOLFGANG Administration Hydralazine HCl 10 mg 04/16/21 18:00 04/24/21 05:25 Hydralazine 20 Mg/1 Ml Inj IV 10 mg Q4HR PRN Administration Hypertension Hydralazine HCl 100 mg 04/21/21 14:00 05/02/21 13:23 Hydralazine 100 Mg Tab PO 100 mg TID WOLFGANG Administration Hydrophilic Ointment 1 applic 04/15/21 17:24 Lip Therapy Vaseline TP Q2HR PRN Dry Lips Fentanyl Citrate 2,000 mcg in 100 mls @ 4.765 mls/hr 04/24/21 14:00 04/25/21 09:15 Fentanyl Drip Premix IV 0 mcg/kg/hr TITR WOLFGANG 0 mls/hr Titration Protocol 1 MCG/KG/HR Propofol 1,000 mg in 100 mls @ 2.859 mls/hr 04/24/21 14:00 04/25/21 09:10 Diprivan 10 Mg/Ml IV 0 mcg/kg/min TITR WOLFGANG 0 mls/hr Titration Protocol 5 MCG/KG/MIN Cefepime HCl 2 gm in 100 mls @ 200 mls/hr 04/27/21 10:00 05/02/21 17:20 Cefepime/Ns 2 Gm/100 Ml IV Infused Q24H [facility] Infusion Protocol Metronidazole 500 mg in 100 mls @ 100 mls/hr 04/30/21 12:00 05/02/21 17:20 Flagyl 500 Mg/100 Ml IV Infused Q8H [facility] Infusion Protocol Insulin Glargine 52 units 05/02/21 08:00 05/02/21 08:06 Insulin Glargine 100 Units/Ml SUB-Q 52 units QAMDIAB WOLFGANG Administration Insulin Human Lispro 0 unit 04/16/21 15:00 05/02/21 18:02 Insulin Lispro 100 Unit/Ml SUB-Q Not Given Q6HR [facility] Protocol Latanoprost 1 drops 04/17/21 18:00 05/02/21 18:27 Latanoprost 0.005% Ophth Soln 2.5 Ml OU 1 drops QPM WOLFGANG Administration Levothyroxine Sodium 25 mcg 04/19/21 06:00 05/02/21 05:03 Levothyroxine 25 Mcg Tab PO 25 mcg DAILY@0600 WOLFGANG Administration Metoprolol Tartrate 25 mg 04/19/21 10:00 05/02/21 09:06 Metoprolol Tartrate 25 Mg Tab PO 25 mg BID WOLFGANG Administration Multi-Ingred Cream/Lotion/Oil/Oint 1 applic 04/15/21 17:24 05/02/21 09:06 Mineral Oil/Petrolatum, White Ophth Oint 3.5 Gm OU 1 applic Q4HR PRN Administration Dry Eye(s) Pravastatin Sodium 20 mg 04/19/21 22:00 05/01/21 21:39 Pravastatin 20 Mg Tab PO 20 mg QHS WOLFGANG Administration Scopolamine 1 each 04/20/21 18:00 05/02/21 09:14 Scopolamine Transdermal Patch 72 Hr TD 1 each Q3D WOLFGANG Administration Simple Syrup 15 ml 04/16/21 12:52 Simple Syrup 15 Ml FEEDTUBE PRN PRN Hypoglycemia Simple Syrup 30 ml 04/16/21 12:52 Simple Syrup 15 Ml FEEDTUBE PRN PRN Hypoglycemia Sodium Bicarbonate 325 mg 04/16/21 12:52 Sodium Bicarbonate 325 Mg Tab FEEDTUBE PRN PRN For Clogged Feeding Tube Sodium Chloride 10 ml 04/15/21 22:00 05/02/21 09:11 Sodium Chloride 0.9% 10 Ml Flush Syringe IV 10 ml BID WOLFGANG Administration Sodium Chloride 10 ml 04/15/21 19:11 04/24/21 05:27 Sodium Chloride 0.9% 10 Ml Flush Syringe IV 10 ml PRN PRN Administration LINE FLUSH Tamsulosin HCl 0.4 mg 04/25/21 14:00 05/02/21 09:06 Tamsulosin 0.4 Mg Cap PO 0.4 mg QDAY WOLFGANG Administration Timolol Maleate 1 drops 04/19/21 10:00 05/02/21 09:11 Timolol 0.5% Ophth Soln 5 Ml OU 1 drops QDAY WOLFGANG Administration Nutrition/Malnutrition Assess - Dietary Evaluation Nutrition/Malnutrition Findings: Nutrition Notes Start: 04/16/21 12:31 Freq: Status: Active Protocol: Document 04/30/21 09:36 LP (Rec: 04/30/21 09:39 LP [id number]) Nutrition Notes Initial or Follow up Reassessment Current Diagnosis Acute Kidney Injury,Coronary Artery Disease,Diabetes, Hypertension Other Pertinent Diagnosis UTI, acute metabolic encephalopathy Current Diet Glucerna 1.2 at 50ml/hr Labs/Tests BUN 118 Cr 3.3 BG 263 Pertinent Medications Reviewed Height 5 ft 6 in Weight 93 kg [place] Body Weight (kg) 59.09 BMI 33.0 Weight Status Obese Subjective/Other Information Pt tolerating TF at goal rate. Pt on vent. Percent of energy/protein needs met: 100% energy 61% pro Burn Absent Trauma Absent Difficulty In Swallowing Current % PO Negligible Minimum of two criteria No physical signs of malnutrition #1 Nutrition Diagnosis Inadequate oral intake Diagnosis Progress(for reassessment Continues documentation) Is patient on ventilator? Yes Is Patient Ambulatory and/or Out of Bed No REE-([facility]-confined to bed) 1700.760 Kcal/Kg value to use for calculation 15 Approximate Energy Requirements Using 1395 kcal/Kg Calculation Used for Recommendations Kcal/kg Additional Notes Pro needs >2g/kg IBW: >118g/ day Fluid needs 1ml/kcal Nutrition Intervention Change Diet Order: TF Nutrition Support: Continue Glucerna 1.2 at 50ml/ hr with 50ml water flush q4h. Kcal 1,440 Protein (gm) 72 Fluid (mL) 966 Goal #1 TF tolerance Goal #2 TF to meet energy and pro needs as best possible Anticipated Discharge Needs: unable to determine at this time Follow-Up By: 05/07/21 Additional Comments Follow for stable TF
[2021-05-02] MEDS: PRAVASTATIN 20 MG TAB PO SCH (21:52)
[2021-05-03] MEDS: INSULIN LISPRO 100 UNIT/ML SUB-Q SCH ×4 (00:41→18:03)
[2021-05-03] MEDS: IPRATROPIUM/ALBUTEROL SULFATE 3 ML AMPUL.NEB IH SCH ×4 (02:17→19:32)
[2021-05-03] MEDS: metroNIDAZOLE/NS 500 MG/100 ML 500 MG/100 ML BAG IV SCH ×3 (04:30→20:48)
[2021-05-03 05:46] LABS: Calcium 9.1 mg/dL (8.4-10.2)
[2021-05-03] MEDS: LEVOTHYROXINE 25 MCG TAB PO SCH (06:05)
[2021-05-03] MEDS: hydrALAZINE 100 MG TAB PO SCH (08:09)
[2021-05-03] MEDS: INSULIN GLARGINE 100 UNITS/ML SUB-Q SCH (08:13)
--- NOTE | 2021-05-03 09:05 | Progress Note ---
Assessment and Plan 1. Acute kidney injury: Vasomotor ROJELIO. ATN likely. Renal US negative for hydro. Baseline renal function is unknown. Monitor renal function. Non-oliguric. Creatinine leveled off. Renal prognosis is guarded. Avoid nephrotoxic agents. Meds dosage based on GFR. Monitor for [employer] needs. 2. FEN: Hypokalemia, replete K as needed, monitor. Hypernatremia, monitor. Monitor lytes and volume status. 3. Acute hypoxemic respiratory failure: Extubated, re-intubated 04/24. 4. Acute encephalopathy: Hypoglycemia. MRI brain negative. Seen by Neuro. 5. UTI: Pseudomonas and Earline. 6. Hypertension. 7. DM type 2. 8. Mild rhabdomyolysis. 9. Mildly complex R renal cyst. Subjective: Patient was seen and examined at the bedside. Examination: General appearance: well-developed, appears stated age, intubated on vent HEENT: BRUCE, atraumatic Neck: trachea midline Respiratory: Coarse breath sounds heard Heart: S1S2, no murmur Abdomen: soft, obese, bowel sounds heard, NT Integumentary: no obvious rash Neurologic: stuporous Ext: no edema noted Subjective Date of service: 05/03/21 Principal diagnosis: Ac. resp failure; AMS; Hypoglycemia; ROJELIO; Hyperkalemia; DM II Objective - Vital Signs Vital signs: Vital Signs - 12hr 05/02/21 05/02/21 05/02/21 21:31 21:53 22:01 Temperature Pulse Rate 83 79 84 Pulse Rate [ Bilateral] Pulse Rate [ From Monitor] Respiratory 22 14 Rate Respiratory Rate [Bilateral ] Blood Pressure 120/56 120/56 108/57 O2 Sat by Pulse 97 97 Oximetry 05/02/21 05/02/21 05/02/21 22:31 23:01 23:31 Temperature Pulse Rate 83 82 78 Pulse Rate [ Bilateral] Pulse Rate [ From Monitor] Respiratory 25 H 22 25 H Rate Respiratory Rate [Bilateral ] Blood Pressure 108/57 95/59 95/59 O2 Sat by Pulse 98 99 99 Oximetry 05/02/21 05/03/21 05/03/21 23:48 00:00 00:31 Temperature Pulse Rate 80 78 77 Pulse Rate [ Bilateral] Pulse Rate [ From Monitor] Respiratory 19 22 Rate Respiratory Rate [Bilateral ] Blood Pressure 95/59 108/66 108/66 O2 Sat by Pulse 95 96 100 Oximetry 05/03/21 05/03/21 05/03/21 01:00 01:31 02:01 Temperature Pulse Rate 78 72 79 Pulse Rate [ Bilateral] Pulse Rate [ From Monitor] Respiratory 20 24 25 H Rate Respiratory Rate [Bilateral ] Blood Pressure 114/63 114/63 102/54 O2 Sat by Pulse 98 96 97 Oximetry 05/03/21 05/03/21 05/03/21 02:22 02:31 03:01 Temperature Pulse Rate 83 84 Pulse Rate [ 82 Bilateral] Pulse Rate [ From Monitor] Respiratory 21 21 Rate Respiratory 15 Rate [Bilateral ] Blood Pressure 102/54 94/64 O2 Sat by Pulse 100 100 Oximetry 05/03/21 05/03/21 05/03/21 03:31 04:00 04:01 Temperature Pulse Rate 76 75 83 Pulse Rate [ Bilateral] Pulse Rate [ From Monitor] Respiratory 18 19 Rate Respiratory Rate [Bilateral ] Blood Pressure 94/64 128/63 O2 Sat by Pulse 99 96 100 Oximetry 05/03/21 05/03/21 05/03/21 04:27 04:31 05:01 Temperature Pulse Rate 70 83 82 Pulse Rate [ Bilateral] Pulse Rate [ From Monitor] Respiratory 28 H 20 Rate Respiratory Rate [Bilateral ] Blood Pressure 120/45 128/63 128/63 O2 Sat by Pulse 100 91 97 Oximetry 05/03/21 05/03/21 05/03/21 05:31 06:01 06:31 Temperature Pulse Rate 77 72 68 Pulse Rate [ Bilateral] Pulse Rate [ From Monitor] Respiratory 12 15 18 Rate Respiratory Rate [Bilateral ] Blood Pressure 106/54 120/45 106/54 O2 Sat by Pulse 100 100 100 Oximetry 05/03/21 05/03/21 05/03/21 07:01 07:11 08:00 Temperature 98.4 F Pulse Rate 76 76 Pulse Rate [ 79 Bilateral] Pulse Rate [ 78 From Monitor] Respiratory 16 19 Rate Respiratory 18 Rate [Bilateral ] Blood Pressure 104/59 104/59 O2 Sat by Pulse 100 98 Oximetry - Lab 05/01/21 07:11 05/03/21 05:14 Most recent lab results ABG pH 7.531 (7.320-7.450) H 05/03/21 03:57 ABG O2 Saturation 93.5 (0-100) 05/03/21 03:57 Calcium 9.1 mg/dL (8.4-10.2) 05/03/21 05:14 Phosphorus 2.60 mg/dL (2.5-4.5) 04/22/21 08:00 Magnesium 2.10 mg/dL (1.7-2.3) 04/23/21 07:02 Urine Creatinine 24.4 mg/dL (0.1-20.0) H 04/16/21 00:12 Urine Sodium 97 mmol/L 04/16/21 00:12 Medications & Allergies - Medications Allergies/Adverse Reactions: Allergies No Known Allergies Allergy (Unverified 04/15/21 17:41) Home Medications: Home Medications Medication Instructions Recorded Confirmed Last Taken Type Betaxolol HCl [Betoptic S 0.25% 1 drop OU BID 04/16/21 04/16/21 Unknown History SUSP] Bimatoprost [Lumigan 0.01%] 1 drop OU QPM 04/16/21 04/16/21 Unknown History Brimonidine Tartrate [Brimonidine 5 ml OU BID 04/16/21 04/16/21 Unknown History Tartrate 0.2%] Furosemide [Lasix TAB] 40 mg PO QDAY 04/16/21 04/16/21 Unknown History Gabapentin [Neurontin] 300 mg PO Q8HR 04/16/21 04/16/21 Unknown History HYDROcodone/APAP 10-325 [Hoopa 1 each PO Q6HR PRN 04/16/21 04/16/21 Unknown History 10/325] Hydralazine HCl 50 mg PO Q4HR 04/16/21 04/16/21 Unknown History Insulin Aspart Prot/Insuln Asp 52 units SQ HS 04/16/21 04/16/21 Unknown History [Novolog Mix 70-30 Flexpen] Metoprolol [Lopressor] 25 mg PO BID 04/16/21 04/16/21 Unknown History Pravastatin [Pravachol] 20 mg PO QHS 04/16/21 04/16/21 Unknown History Promethazine [Phenergan] 25 mg PO Q6HR 04/16/21 04/16/21 Unknown History allopurinoL [Zyloprim] 150 mg PO QDAY 04/16/21 04/16/21 Unknown History Active Medications: Generic Name Dose Route Start Last Admin Trade Name Freq PRN Reason Stop Dose Admin Acetaminophen 650 mg 04/15/21 19:11 04/30/21 20:14 Acetaminophen 325 Mg Tab PO 650 mg Q6H PRN Administration Pain MILD(1-3)/Fever >100.5/SEXTON Albuterol/Ipratropium 1 ampul 04/24/21 14:00 05/03/21 07:11 Ipratropium/Albuterol Sulfate 3 Ml Ampul.Neb IH 1 ampul Q6HRT WOLFGANG Administration Amlodipine Besylate 10 mg 04/25/21 10:00 05/02/21 09:14 Amlodipine 10 Mg Tab PO 10 mg DAILY WOLFGANG Administration Lipase/Protease/Amylase 1 each 04/16/21 12:52 Lipase 10,500/Protease 25,000/Amylase 43,750 (Units) Dr Simpson FEEDTUBE PRN PRN For Clogged Feeding Tube Aspirin 81 mg 04/25/21 10:00 05/02/21 09:14 Aspirin 81 Mg Tab Chew PO 81 mg QDAY WOLFGANG Administration Bisacodyl 10 mg 04/17/21 11:01 04/28/21 21:04 Bisacodyl 10 Mg Rect Supp SD 10 mg QDAY PRN Administration Constipation Brimonidine Tartrate 1 drops 04/17/21 22:00 05/02/21 21:56 Brimonidine 0.15% Ophth Soln OU 1 drops BID WOLFGANG Administration Docusate Sodium 100 mg 04/29/21 15:00 05/02/21 21:52 Docusate Sodium 100 Mg/10 Ml Oral Liqd PO 100 mg BID WOLFGANG Administration Epinephrine 0.5 ml 04/21/21 12:56 Epinephrine Racemic 2.25% 0.5ml Nebu IH Q4HRT PRN Shortness Of Breath Famotidine 20 mg 04/17/21 10:00 05/02/21 09:06 Famotidine 20 Mg Tab PO 20 mg DAILY WOLFGANG Administration Fentanyl 50 mcg 04/24/21 13:03 Fentanyl 100 Mcg/2 Ml Inj IV Q10MIN PRN ANALGESIA Heparin Sodium (Porcine) 5,000 unit 04/15/21 22:00 05/02/21 21:54 Heparin 5,000 Unit/1 Ml Vial SUB-Q 5,000 unit Q12HR WOLFGANG Administration Hydralazine HCl 10 mg 04/16/21 18:00 04/24/21 05:25 Hydralazine 20 Mg/1 Ml Inj IV 10 mg Q4HR PRN Administration Hypertension Hydralazine HCl 50 mg 05/03/21 14:00 Hydralazine 25 Mg Tab PO Q8HR WOLFGANG Hydrophilic Ointment 1 applic 04/15/21 17:24 Lip Therapy Vaseline TP Q2HR PRN Dry Lips Fentanyl Citrate 2,000 mcg in 100 mls @ 4.765 mls/hr 04/24/21 14:00 04/25/21 09:15 Fentanyl Drip Premix IV 0 mcg/kg/hr TITR WOLFGANG 0 mls/hr Titration Protocol 1 MCG/KG/HR Propofol 1,000 mg in 100 mls @ 2.859 mls/hr 04/24/21 14:00 04/25/21 09:10 Diprivan 10 Mg/Ml IV 0 mcg/kg/min TITR WOLFGANG 0 mls/hr Titration Protocol 5 MCG/KG/MIN Metronidazole 500 mg in 100 mls @ 100 mls/hr 04/30/21 12:00 05/03/21 04:30 Flagyl 500 Mg/100 Ml IV 05/05/21 04:59 100 mls/hr Q8H PENDING SALE TO [facility] Administration Protocol Insulin Glargine 52 units 05/04/21 22:00 Insulin Glargine 100 Units/Ml SUB-Q QHS WOLFGANG Insulin Human Lispro 0 unit 04/16/21 15:00 05/03/21 06:06 Insulin Lispro 100 Unit/Ml SUB-Q 3 unit Q6HR PENDING SALE TO [facility] Administration Protocol Latanoprost 1 drops 04/17/21 18:00 05/02/21 18:27 Latanoprost 0.005% Ophth Soln 2.5 Ml OU 1 drops QPM WOLFGANG Administration Levothyroxine Sodium 25 mcg 04/19/21 06:00 05/03/21 06:05 Levothyroxine 25 Mcg Tab PO 25 mcg DAILY@0600 PENDING SALE TO [facility] Administration Metoprolol Tartrate 25 mg 04/19/21 10:00 05/02/21 21:53 Metoprolol Tartrate 25 Mg Tab PO 25 mg BID WOLFGANG Administration Multi-Ingred Cream/Lotion/Oil/Oint 1 applic 04/15/21 17:24 05/02/21 09:06 Mineral Oil/Petrolatum, White Ophth Oint 3.5 Gm OU 1 applic Q4HR PRN Administration Dry Eye(s) Pravastatin Sodium 20 mg 04/19/21 22:00 05/02/21 21:52 Pravastatin 20 Mg Tab PO 20 mg QHS WOLFGANG Administration Scopolamine 1 each 04/20/21 18:00 05/02/21 09:14 Scopolamine Transdermal Patch 72 Hr TD 1 each Q3D WOLFGANG Administration Simple Syrup 15 ml 04/16/21 12:52 Simple Syrup 15 Ml FEEDTUBE PRN PRN Hypoglycemia Simple Syrup 30 ml 04/16/21 12:52 Simple Syrup 15 Ml FEEDTUBE PRN PRN Hypoglycemia Sodium Bicarbonate 325 mg 04/16/21 12:52 Sodium Bicarbonate 325 Mg Tab FEEDTUBE PRN PRN For Clogged Feeding Tube Sodium Chloride 10 ml 04/15/21 22:00 05/02/21 21:53 Sodium Chloride 0.9% 10 Ml Flush Syringe IV 10 ml BID WOLFGANG Administration Sodium Chloride 10 ml 04/15/21 19:11 04/24/21 05:27 Sodium Chloride 0.9% 10 Ml Flush Syringe IV 10 ml PRN PRN Administration LINE FLUSH Tamsulosin HCl 0.4 mg 04/25/21 14:00 05/02/21 09:06 Tamsulosin 0.4 Mg Cap PO 0.4 mg QDAY WOLFGANG Administration Timolol Maleate 1 drops 04/19/21 10:00 05/02/21 09:11 Timolol 0.5% Ophth Soln 5 Ml OU 1 drops QDAY WOLFGANG Administration
[2021-05-03] MEDS: TAMSULOSIN 0.4 MG CAP PO SCH (09:50)
[2021-05-03] MEDS: ASPIRIN 81 MG TAB CHEW PO SCH (09:50)
[2021-05-03] MEDS: DOCUSATE SODIUM 100 MG/10 ML ORAL LIQD PO SCH ×2 (09:50→21:37)
[2021-05-03] MEDS: FAMOTIDINE 20 MG TAB PO SCH (09:50)
[2021-05-03] MEDS: amLODIPine 10 MG TAB PO SCH (09:51)
[2021-05-03] MEDS: HEPARIN 5,000 UNIT/1 ML VIAL SUB-Q SCH ×2 (09:51→21:37)
[2021-05-03] MEDS: TIMOLOL 0.5% OPHTH SOLN 5 ML OU SCH (09:52)
[2021-05-03] MEDS: BRIMONIDINE 0.15% OPHTH SOLN OU SCH ×2 (09:53→21:36)
[2021-05-03] MEDS: METOPROLOL TARTRATE 25 MG TAB PO SCH ×2 (09:53→21:37)
--- NOTE | 2021-05-03 11:44 | Progress Note ---
Assessment and Plan Cultures: 04/15/2021 blood culture: No growth 04/15/2021 sputum culture: Contaminated 04/16/2021 urine culture: Mixed nilesh 04/16/2021 tracheal aspirate culture: Usual respiratory nilesh 04/18/2021 urine culture: 10K-100 K Pseudomonas aeruginosa 04/18/2021 blood culture: No growth 04/24/2021 resp culture: usual resp nilesh 04/26/2021 blood culture: No growth COVID-19 PCR: Negative 04/30/2021 blood culture: No growth 04/30/2021 urine culture: Earline A/P: 80-year-old female with diabetes mellitus, coronary artery disease, hypertension, breast cancer status post mastectomy, TIA was admitted to the hospital on 04/16/2021 with altered mental status and hypoglycemia: #Sepsis: Etiology unclear. Prolonged mechanical ventilation and ICU stay. Ruled out bacteremia, UTI. Chest x-ray from today does not reveal any pne umonia. ? some leucocytosis related to steroid use from 04/21/2021 to 04/24/2021. #Acute respiratory failure: on the vent. #Acute encephalopathy: Metabolic likely. #UTI with Pseudomonas: Recently treated with IV cefepime. Candiduria does not need treatment. Kerr was already exchanged #ROJELIO: Renally dose antibiotics. Recs: -Continue IV Cefepime, Flagyl, plan to stop after 2 days -awaiting trach -Candiduria does not need treatment. Kerr was already exchanged Cash Parks MD, FACP [facility] O: [phone] F: [phone] Subjective Date of service: 05/03/21 Principal diagnosis: Ac. resp failure; AMS; Hypoglycemia; ROJELIO; Hyperkalemia; DM II Interval history: Remains on the vent. No fever. Objective - Exam Narrative Exam: Physical Exam: Constitutional: sedated, intubated, on the vent Head, Ears, Nose: Normocephalic, atraumatic. External ears, nose normal Eyes: Conjunctivae/corneas clear. No icterus. No ptosis. Neck: intubated Oral: intubated Cardiovascular: S1, S2 + Respiratory: AE fair bilaterally and equal GI: Soft, bowel sounds + Musculoskeletal: No pedal edema, no cyanosis. Skin: No rash or abscess Hem/Lymphatic: No palpable cervical or supraclavicular nodes. No lymphangitis Psych: no agitation Neurological: sedated, intubated, on the vent, exam limited - Constitutional Vitals: Vital Signs Temp Pulse Resp BP Pulse Ox 98.4 F 72 19 123/45 98 05/03/21 08:00 05/03/21 09:53 05/03/21 08:00 05/03/21 09:53 05/03/21 08:00 Temperature -Last 24 Hours Temperature 98.4 F Temperature 98.2 F Temperature 98.4 F - Labs CBC & Chem 7: 05/01/21 07:11 05/03/21 05:14 Labs: Abnormal lab results 05/02/21 05/02/21 05/02/21 Range/Units 11:53 17:28 23:32 ABG pH (7.320-7.450) POC ABG pCO2 (32.0-48.0) mmHg POC ABG pO2 (83-108) mmHg ABG Hemoglobin (12.0-17.5) ABG Oxyhemoglobin (94-98) ABG Sodium (136.0-145.0) mmol/L ABG Chloride (98-107) mmol/L ABG Glucose (65-95) mg/dL Sodium (137-145) mmol/L Chloride (98-107) mmol/L BUN (7-17) mg/dL Creatinine (0.6-1.2) mg/dL Glucose (65-100) mg/dL POC Glucose 185 H 147 H 202 H (70-105) mg/dL Arterial Blood Glucose (65-95) mg/dL 05/03/21 05/03/21 05/03/21 Range/Units 03:57 05:14 05:44 ABG pH 7.531 H (7.320-7.450) POC ABG pCO2 31.0 L (32.0-48.0) mmHg POC ABG pO2 64.3 L (83-108) mmHg ABG Hemoglobin 9.0 L (12.0-17.5) ABG Oxyhemoglobin 92.6 L (94-98) ABG Sodium 145.7 H (136.0-145.0) mmol/L ABG Chloride 112.0 H (98-107) mmol/L ABG Glucose 202 H (65-95) mg/dL Sodium 147 H (137-145) mmol/L Chloride 109.7 H (98-107) mmol/L BUN 121 H (7-17) mg/dL Creatinine 3.1 H (0.6-1.2) mg/dL Glucose 190 H (65-100) mg/dL POC Glucose 175 H (70-105) mg/dL Arterial Blood Glucose 202 H (65-95) mg/dL 05/03/21 Range/Units 11:10 ABG pH (7.320-7.450) POC ABG pCO2 (32.0-48.0) mmHg POC ABG pO2 (83-108) mmHg ABG Hemoglobin (12.0-17.5) ABG Oxyhemoglobin (94-98) ABG Sodium (136.0-145.0) mmol/L ABG Chloride (98-107) mmol/L ABG Glucose (65-95) mg/dL Sodium (137-145) mmol/L Chloride (98-107) mmol/L BUN (7-17) mg/dL Creatinine (0.6-1.2) mg/dL Glucose (65-100) mg/dL POC Glucose 202 H (70-105) mg/dL Arterial Blood Glucose (65-95) mg/dL
--- NOTE | 2021-05-03 14:15 | Progress Note ---
Assessment and Plan Acute respiratory failure, on mechanical ventilatory support. Acute toxic metabolic encephalopathy Hypoglycemia ROJELIO Hyperkalemia Rhabdomyolysis Possible seizure activity DM II HTN CAD Obesity H/O breast cancer H/O TIA Leukocytosis Elevated serum TSH, possible hypothyroidism - begin IV1/2NS @ 75 ml's/hr X 2 liters re: Azotemia with hypernatremia - continue free water flushes at 250 mls q4h - still awaiting tracheostomy (Plavix on hold; trach likely early next week) - continue care as below otherwise; - continue to wean supplemental oxygen for target O2 sat's > 90% acutely - VAP bundle addressed - continue lung protective strategies - continue bronchodilators with pulmonary hygiene per RT - continue Daily SAT and SBT assessment as tolerated - wean per pulmonary driven protocols otherwise - continue accuchecks with glycemic control per SSI (While critically ill target blood glucose of 140-180 mg/dL; avoid hypoglycemia) - sedation prn for target RASS 0 to -1 - avoid nephrotoxins, renally dose all medications - continue to avoid benzodiazepine's, reduce the possibility of delirium - complete AB's per ID rec's re: Cefepime and Flagyl - follow clinically trend fevers / WBC - prn analgesia per CPOT score - Maintenance of sleep-wake cycle, avoid delirium - continue enteral nutritional support at goal rate as tolerated - G.I. & VTE prophylaxis - PT/OT/ROM exercises - continue Flomax re: retention - continue mobility protocols for pressure ulcer prophylaxis - Monitor hemodynamics closely - continue other care per attending / other consultants - discharge planning ongoing concurrently .... Re-evaluate in am & prn CONDITION: CRITICAL PROGNOSIS: GUARDED CODE STATUS: FULL CODE The high probability of a clinically significant, sudden or life-threatening deterioration of the [respiratory, cardiovascular, GI & neurologic] system(s) required my full and direct attention, intervention and personal management. The aggregate critical care time was [33] minutes without overlap. Time includes spent on; [x] Data Review and interpretation [x] Patient assessment and monitoring of vital signs [x] Documentation [x] Medication orders and management Subjective Date of service: 05/03/21 Principal diagnosis: Ac. resp failure; AMS; Hypoglycemia; ROJELIO; Hyperkalemia; DM II Interval history: Patient is seen today for: Acute respiratory failure; AMS; Hypoglycemia; ROJELIO; Hyperkalemia; DM II; H/O breast cancer; Elevated serum TSH, possible hypothyroidism Seen and examined at bedside; 24hour events reviewed; nursing and respiratory care staff consulted; no adverse overnight events reported to me; resting peacefully in bed; remains on MVS; tolerating SBT better today; azotemia is persistent but Bun out of proportion to SCr; no gross G.I. bleeding noted Objective Vital Signs - 12hr 05/03/21 05/03/21 05/03/21 02:22 02:31 03:01 Temperature Pulse Rate 83 84 Pulse Rate [ 82 Bilateral] Pulse Rate [ From Monitor] Respiratory 21 21 Rate Respiratory 15 Rate [Bilateral ] Blood Pressure 102/54 94/64 O2 Sat by Pulse 100 100 Oximetry 05/03/21 05/03/21 05/03/21 03:31 04:00 04:01 Temperature Pulse Rate 76 75 83 Pulse Rate [ Bilateral] Pulse Rate [ From Monitor] Respiratory 18 19 Rate Respiratory Rate [Bilateral ] Blood Pressure 94/64 128/63 O2 Sat by Pulse 99 96 100 Oximetry 05/03/21 05/03/21 05/03/21 04:27 04:31 05:01 Temperature Pulse Rate 70 83 82 Pulse Rate [ Bilateral] Pulse Rate [ From Monitor] Respiratory 28 H 20 Rate Respiratory Rate [Bilateral ] Blood Pressure 120/45 128/63 128/63 O2 Sat by Pulse 100 91 97 Oximetry 05/03/21 05/03/21 05/03/21 05:31 06:01 06:31 Temperature Pulse Rate 77 72 68 Pulse Rate [ Bilateral] Pulse Rate [ From Monitor] Respiratory 12 15 18 Rate Respiratory Rate [Bilateral ] Blood Pressure 106/54 120/45 106/54 O2 Sat by Pulse 100 100 100 Oximetry 05/03/21 05/03/21 05/03/21 07:01 07:11 08:00 Temperature 98.4 F Pulse Rate 76 66 Pulse Rate [ 79 Bilateral] Pulse Rate [ 78 From Monitor] Respiratory 16 22 Rate Respiratory 18 Rate [Bilateral ] Blood Pressure 104/59 104/59 O2 Sat by Pulse 100 99 Oximetry 05/03/21 05/03/21 05/03/21 09:01 09:51 09:53 Temperature Pulse Rate 73 70 72 Pulse Rate [ Bilateral] Pulse Rate [ From Monitor] Respiratory 24 Rate Respiratory Rate [Bilateral ] Blood Pressure 123/45 123/45 123/45 O2 Sat by Pulse 98 Oximetry 05/03/21 05/03/21 05/03/21 10:01 11:00 11:01 Temperature 98.3 F Pulse Rate 76 70 Pulse Rate [ Bilateral] Pulse Rate [ From Monitor] Respiratory 30 H 32 H Rate Respiratory Rate [Bilateral ] Blood Pressure 129/55 126/60 O2 Sat by Pulse 100 95 Oximetry 05/03/21 05/03/21 05/03/21 11:55 12:00 12:01 Temperature Pulse Rate 72 66 63 Pulse Rate [ Bilateral] Pulse Rate [ 63 From Monitor] Respiratory 23 22 24 Rate Respiratory Rate [Bilateral ] Blood Pressure 123/45 125/62 O2 Sat by Pulse 98 100 95 Oximetry 05/03/21 13:01 Temperature Pulse Rate 66 Pulse Rate [ Bilateral] Pulse Rate [ From Monitor] Respiratory 23 Rate Respiratory Rate [Bilateral ] Blood Pressure 125/62 O2 Sat by Pulse 100 Oximetry Constitutional: no acute distress, other (elderly obese female with mildly increased respiratory effort at rest on MVS) Eyes: non-icteric (ETT 24 cm RICARDO) ENT: oropharynx moist, other (ETT 24 cm RICARDO) Neck: supple, no lymphadenopathy, no JVD, other (large circumference) Effort: mildly labored Ascultation: Bilateral: diminished breath sounds, rhonchi Percussion: Bilateral: not dull Cardiovascular: regular rate and rhythm, other (S1,S2) Gastrointestinal: normoactive bowel sounds, hypoactive bowel sounds, non-tender, non-distended (protuberant), other (firm) Integumentary: normal Extremities: no cyanosis, no edema, pulses normal, no ischemia or petechiae Neurologic: non-focal exam (tracks voice), pupils equal and round, CN II-XII normal, motor strength normal and Psychiatric: mood appropriate, affect normal CBC and BMP: 05/01/21 07:11 05/03/21 05:14 ABG, PT/INR, D-dimer: ABG ABG pH 7.531 (7.320-7.450) H 05/03/21 03:57 POC ABG pCO2 31.0 mmHg (32.0-48.0) L 05/03/21 03:57 POC ABG pO2 64.3 mmHg (83-108) L 05/03/21 03:57 POC ABG HCO3 25.4 05/03/21 03:57 ABG O2 Saturation 93.5 (0-100) 05/03/21 03:57 PT/INR, D-dimer PT 12.2 Sec. (12.2-14.9) 04/15/21 17:20 INR 0.91 (0.87-1.13) 04/15/21 17:20 Abnormal lab findings: Abnormal Labs 04/15/21 04/15/21 04/15/21 17:00 17:20 17:20 WBC 11.2 H RBC Hgb Hct 43.0 H MCV RDW 15.3 H Plt Count Lymph % (Auto) 12.8 L Seg Neutrophils % 82.4 H Seg Neuts % (Manual) Lymphocytes % (Manual) Monocytes % (Manual) Seg Neutrophils # 9.3 H Seg Neutrophils # Man Lymphocytes # (Manual) Monocytes # (Manual) ABG pH POC ABG pCO2 POC ABG pO2 ABG Hemoglobin ABG Oxyhemoglobin ABG Sodium ABG Potassium ABG Chloride ABG Glucose Carboxyhemoglobin Sodium 129 L Potassium 7.1 H* Chloride 91.9 L BUN 35 H Creatinine 2.8 H Glucose POC Glucose 191 H Calcium Phosphorus Magnesium AST 69 H ALT Total Creatine Kinase CK-MB (CK-2) Troponin T Total Protein Albumin HDL Cholesterol TSH Free T3 Index Arterial Blood Glucose Arterial Blood Ionized Calcium Urine pH Urine WBC (Auto) Urine Creatinine Acetaminophen 04/15/21 04/15/21 04/15/21 17:20 17:20 17:20 WBC RBC Hgb Hct MCV RDW Plt Count Lymph % (Auto) Seg Neutrophils % Seg Neuts % (Manual) Lymphocytes % (Manual) Monocytes % (Manual) Seg Neutrophils # Seg Neutrophils # Man Lymphocytes # (Manual) Monocytes # (Manual) ABG pH POC ABG pCO2 POC ABG pO2 ABG Hemoglobin ABG Oxyhemoglobin ABG Sodium ABG Potassium ABG Chloride ABG Glucose Carboxyhemoglobin Sodium Potassium Chloride BUN Creatinine Glucose POC Glucose Calcium Phosphorus Magnesium AST ALT Total Creatine Kinase 1000 H CK-MB (CK-2) Troponin T Total Protein Albumin HDL Cholesterol TSH 14.190 H Free T3 Index Arterial Blood Glucose Arterial Blood Ionized Calcium Urine pH Urine WBC (Auto) Urine Creatinine Acetaminophen 5.0 L 04/15/21 04/15/21 04/15/21 20:49 21:23 23:15 WBC RBC Hgb Hct MCV RDW Plt Count Lymph % (Auto) Seg Neutrophils % Seg Neuts % (Manual) Lymphocytes % (Manual) Monocytes % (Manual) Seg Neutrophils # Seg Neutrophils # Man Lymphocytes # (Manual) Monocytes # (Manual) ABG pH 7.557 H POC ABG pCO2 30.0 L POC ABG pO2 493.3 H ABG Hemoglobin ABG Oxyhemoglobin 99.0 H ABG Sodium 131.5 L ABG Potassium 4.7 H ABG Chloride 94.0 L ABG Glucose 218 H Carboxyhemoglobin Sodium Potassium Chloride BUN Creatinine Glucose POC Glucose 173 H 207 H Calcium Phosphorus Magnesium AST ALT Total Creatine Kinase CK-MB (CK-2) Troponin T Total Protein Albumin HDL Cholesterol TSH Free T3 Index Arterial Blood Glucose 218 H Arterial Blood Ionized Calcium 5.4 H Urine pH Urine WBC (Auto) Urine Creatinine Acetaminophen 04/16/21 04/16/21 04/16/21 00:09 00:12 00:19 WBC RBC Hgb Hct MCV RDW Plt Count Lymph % (Auto) Seg Neutrophils % Seg Neuts % (Manual) Lymphocytes % (Manual) Monocytes % (Manual) Seg Neutrophils # Seg Neutrophils # Man Lymphocytes # (Manual) Monocytes # (Manual) ABG pH POC ABG pCO2 POC ABG pO2 ABG Hemoglobin ABG Oxyhemoglobin ABG Sodium ABG Potassium ABG Chloride ABG Glucose Carboxyhemoglobin Sodium Potassium 6.7 H* Chloride BUN Creatinine Glucose POC Glucose Calcium Phosphorus Magnesium AST ALT Total Creatine Kinase CK-MB (CK-2) Troponin T Total Protein Albumin HDL Cholesterol TSH Free T3 Index Arterial Blood Glucose Arterial Blood Ionized Calcium Urine pH 9.0 H Urine WBC (Auto) Urine Creatinine 24.4 H Acetaminophen 04/16/21 04/16/21 04/16/21 03:43 03:55 05:02 WBC 21.2 H RBC Hgb Hct 43.4 H MCV 98 H RDW Plt Count Lymph % (Auto) Seg Neutrophils % Seg Neuts % (Manual) 84.0 H Lymphocytes % (Manual) 2.0 L Monocytes % (Manual) 10.0 H Seg Neutrophils # Seg Neutrophils # Man 17.8 H Lymphocytes # (Manual) 0.4 L Monocytes # (Manual) 2.1 H ABG pH 7.461 H POC ABG pCO2 POC ABG pO2 ABG Hemoglobin ABG Oxyhemoglobin ABG Sodium 126.8 L ABG Potassium 5.4 H ABG Chloride 90.0 L ABG Glucose 325 H Carboxyhemoglobin Sodium Potassium Chloride BUN Creatinine Glucose POC Glucose 391 H Calcium Phosphorus Magnesium AST ALT Total Creatine Kinase CK-MB (CK-2) Troponin T Total Protein Albumin HDL Cholesterol TSH Free T3 Index Arterial Blood Glucose 325 H Arterial Blood Ionized Calcium Urine pH Urine WBC (Auto) Urine Creatinine Acetaminophen 04/16/21 04/16/21 04/16/21 05:02 11:34 16:09 WBC RBC Hgb Hct MCV RDW Plt Count Lymph % (Auto) Seg Neutrophils % Seg Neuts % (Manual) Lymphocytes % (Manual) Monocytes % (Manual) Seg Neutrophils # Seg Neutrophils # Man Lymphocytes # (Manual) Monocytes # (Manual) ABG pH POC ABG pCO2 POC ABG pO2 ABG Hemoglobin ABG Oxyhemoglobin ABG Sodium ABG Potassium ABG Chloride ABG Glucose Carboxyhemoglobin Sodium 131 L Potassium 5.9 H Chloride 88.7 L BUN 34 H Creatinine 2.9 H Glucose 249 H POC Glucose 382 H 300 H Calcium 10.4 H Phosphorus Magnesium AST 65 H ALT Total Creatine Kinase CK-MB (CK-2) Troponin T Total Protein Albumin 3.8 L HDL Cholesterol TSH Free T3 Index Arterial Blood Glucose Arterial Blood Ionized Calcium Urine pH Urine WBC (Auto) Urine Creatinine Acetaminophen 04/16/21 04/16/21 04/16/21 18:15 19:01 19:01 WBC RBC Hgb Hct MCV RDW Plt Count Lymph % (Auto) Seg Neutrophils % Seg Neuts % (Manual) Lymphocytes % (Manual) Monocytes % (Manual) Seg Neutrophils # Seg Neutrophils # Man Lymphocytes # (Manual) Monocytes # (Manual) ABG pH POC ABG pCO2 POC ABG pO2 ABG Hemoglobin ABG Oxyhemoglobin ABG Sodium ABG Potassium ABG Chloride ABG Glucose Carboxyhemoglobin Sodium 125 L Potassium 5.5 H Chloride 84.5 L BUN 37 H Creatinine 3.5 H Glucose 236 H POC Glucose 287 H Calcium Phosphorus Magnesium AST ALT Total Creatine Kinase CK-MB (CK-2) Troponin T Total Protein Albumin HDL Cholesterol TSH Free T3 Index 1.1 L Arterial Blood Glucose Arterial Blood Ionized Calcium Urine pH Urine WBC (Auto) Urine Creatinine Acetaminophen 04/16/21 04/16/21 04/17/21 19:01 23:48 03:09 WBC RBC Hgb Hct MCV RDW Plt Count Lymph % (Auto) Seg Neutrophils % Seg Neuts % (Manual) Lymphocytes % (Manual) Monocytes % (Manual) Seg Neutrophils # Seg Neutrophils # Man Lymphocytes # (Manual) Monocytes # (Manual) ABG pH 7.518 H POC ABG pCO2 POC ABG pO2 ABG Hemoglobin ABG Oxyhemoglobin ABG Sodium 126.4 L ABG Potassium ABG Chloride 89.0 L ABG Glucose 200 H Carboxyhemoglobin Sodium Potassium 5.6 H Chloride BUN Creatinine Glucose POC Glucose 243 H Calcium Phosphorus Magnesium AST ALT Total Creatine Kinase CK-MB (CK-2) Troponin T Total Protein Albumin HDL Cholesterol TSH Free T3 Index Arterial Blood Glucose 200 H Arterial Blood Ionized Calcium 4.4 L Urine pH Urine WBC (Auto) Urine Creatinine Acetaminophen 04/17/21 04/17/21 04/17/21 05:04 06:14 11:55 WBC RBC Hgb Hct MCV RDW Plt Count Lymph % (Auto) Seg Neutrophils % Seg Neuts % (Manual) Lymphocytes % (Manual) Monocytes % (Manual) Seg Neutrophils # Seg Neutrophils # Man Lymphocytes # (Manual) Monocytes # (Manual) ABG pH POC ABG pCO2 POC ABG pO2 ABG Hemoglobin ABG Oxyhemoglobin ABG Sodium ABG Potassium ABG Chloride ABG Glucose Carboxyhemoglobin Sodium 129 L Potassium Chloride 86.1 L BUN 39 H Creatinine 3.5 H Glucose 202 H POC Glucose 208 H 276 H Calcium Phosphorus Magnesium AST ALT Total Creatine Kinase 750 H CK-MB (CK-2) Troponin T 0.119 H* D Total Protein Albumin HDL Cholesterol 61 H TSH Free T3 Index Arterial Blood Glucose Arterial Blood Ionized Calcium Urine pH Urine WBC (Auto) Urine Creatinine Acetaminophen 04/17/21 04/17/21 04/17/21 15:35 15:35 17:07 WBC 17.1 H RBC Hgb Hct MCV RDW Plt Count Lymph % (Auto) Seg Neutrophils % Seg Neuts % (Manual) Lymphocytes % (Manual) Monocytes % (Manual) Seg Neutrophils # Seg Neutrophils # Man Lymphocytes # (Manual) Monocytes # (Manual) ABG pH POC ABG pCO2 POC ABG pO2 ABG Hemoglobin ABG Oxyhemoglobin ABG Sodium ABG Potassium ABG Chloride ABG Glucose Carboxyhemoglobin Sodium Potassium Chloride BUN Creatinine Glucose POC Glucose 148 H Calcium Phosphorus Magnesium AST ALT Total Creatine Kinase 615 H CK-MB (CK-2) 9.1 H Troponin T Total Protein Albumin HDL Cholesterol TSH Free T3 Index Arterial Blood Glucose Arterial Blood Ionized Calcium Urine pH Urine WBC (Auto) Urine Creatinine Acetaminophen 04/18/21 04/18/21 04/18/21 00:01 03:00 05:24 WBC RBC Hgb Hct MCV RDW Plt Count Lymph % (Auto) Seg Neutrophils % Seg Neuts % (Manual) Lymphocytes % (Manual) Monocytes % (Manual) Seg Neutrophils # Seg Neutrophils # Man Lymphocytes # (Manual) Monocytes # (Manual) ABG pH 7.497 H POC ABG pCO2 POC ABG pO2 77.7 L ABG Hemoglobin 10.4 L ABG Oxyhemoglobin ABG Sodium 129.7 L ABG Potassium 2.8 L ABG Chloride 92.0 L ABG Glucose 134 H Carboxyhemoglobin 0.3 L Sodium Potassium Chloride BUN Creatinine Glucose POC Glucose 192 H 162 H Calcium Phosphorus Magnesium AST ALT Total Creatine Kinase CK-MB (CK-2) Troponin T Total Protein Albumin HDL Cholesterol TSH Free T3 Index Arterial Blood Glucose 134 H Arterial Blood Ionized Calcium 4.3 L Urine pH Urine WBC (Auto) Urine Creatinine Acetaminophen 04/18/21 04/18/21 04/18/21 05:34 05:34 05:43 WBC 15.3 H RBC 3.34 L Hgb Hct MCV RDW 15.3 H Plt Count Lymph % (Auto) Seg Neutrophils % Seg Neuts % (Manual) Lymphocytes % (Manual) Monocytes % (Manual) Seg Neutrophils # Seg Neutrophils # Man Lymphocytes # (Manual) Monocytes # (Manual) ABG pH POC ABG pCO2 POC ABG pO2 ABG Hemoglobin ABG Oxyhemoglobin ABG Sodium ABG Potassium ABG Chloride ABG Glucose Carboxyhemoglobin Sodium 134 L Potassium 3.0 L D Chloride 93.5 L BUN 42 H Creatinine 3.1 H Glucose 152 H POC Glucose Calcium Phosphorus Magnesium 1.40 L AST ALT Total Creatine Kinase 427 H CK-MB (CK-2) Troponin T 0.081 H D Total Protein Albumin HDL Cholesterol TSH Free T3 Index Arterial Blood Glucose Arterial Blood Ionized Calcium Urine pH Urine WBC (Auto) Urine Creatinine Acetaminophen 04/18/21 04/18/21 04/18/21 09:11 11:34 17:24 WBC RBC Hgb Hct MCV RDW Plt Count Lymph % (Auto) Seg Neutrophils % Seg Neuts % (Manual) Lymphocytes % (Manual) Monocytes % (Manual) Seg Neutrophils # Seg Neutrophils # Man Lymphocytes # (Manual) Monocytes # (Manual) ABG pH POC ABG pCO2 POC ABG pO2 ABG Hemoglobin ABG Oxyhemoglobin ABG Sodium ABG Potassium ABG Chloride ABG Glucose Carboxyhemoglobin Sodium Potassium Chloride BUN Creatinine Glucose POC Glucose 170 H 151 H Calcium Phosphorus Magnesium AST ALT Total Creatine Kinase CK-MB (CK-2) Troponin T Total Protein Albumin HDL Cholesterol TSH Free T3 Index Arterial Blood Glucose Arterial Blood Ionized Calcium Urine pH Urine WBC (Auto) 34.0 H Urine Creatinine Acetaminophen 04/18/21 04/19/21 04/19/21 23:18 04:09 05:19 WBC RBC Hgb Hct MCV RDW Plt Count Lymph % (Auto) Seg Neutrophils % Seg Neuts % (Manual) Lymphocytes % (Manual) Monocytes % (Manual) Seg Neutrophils # Seg Neutrophils # Man Lymphocytes # (Manual) Monocytes # (Manual) ABG pH 7.476 H POC ABG pCO2 POC ABG pO2 79.4 L ABG Hemoglobin 10.7 L ABG Oxyhemoglobin ABG Sodium 131.2 L ABG Potassium 2.8 L ABG Chloride 94.0 L ABG Glucose 209 H Carboxyhemoglobin 0.3 L Sodium Potassium Chloride BUN Creatinine Glucose POC Glucose 182 H 204 H Calcium Phosphorus Magnesium AST ALT Total Creatine Kinase CK-MB (CK-2) Troponin T Total Protein Albumin HDL Cholesterol TSH Free T3 Index Arterial Blood Glucose 209 H Arterial Blood Ionized Calcium Urine pH Urine WBC (Auto) Urine Creatinine Acetaminophen 04/19/21 04/19/21 04/19/21 07:30 07:30 10:35 WBC 14.8 H RBC 3.20 L Hgb Hct MCV 98 H RDW Plt Count 137 L Lymph % (Auto) Seg Neutrophils % Seg Neuts % (Manual) Lymphocytes % (Manual) Monocytes % (Manual) Seg Neutrophils # Seg Neutrophils # Man Lymphocytes # (Manual) Monocytes # (Manual) ABG pH 7.464 H POC ABG pCO2 POC ABG pO2 81.8 L ABG Hemoglobin 10.8 L ABG Oxyhemoglobin ABG Sodium 129.6 L ABG Potassium ABG Chloride 95.0 L ABG Glucose 238 H Carboxyhemoglobin Sodium 133 L Potassium 2.8 L* Chloride 94.4 L BUN 43 H Creatinine 2.7 H Glucose 255 H POC Glucose Calcium 8.0 L Phosphorus Magnesium AST ALT Total Creatine Kinase CK-MB (CK-2) Troponin T 0.060 H D Total Protein Albumin HDL Cholesterol TSH Free T3 Index Arterial Blood Glucose 238 H Arterial Blood Ionized Calcium Urine pH Urine WBC (Auto) Urine Creatinine Acetaminophen 04/19/21 04/19/21 04/19/21 11:48 20:40 23:04 WBC RBC Hgb Hct MCV RDW Plt Count Lymph % (Auto) Seg Neutrophils % Seg Neuts % (Manual) Lymphocytes % (Manual) Monocytes % (Manual) Seg Neutrophils # Seg Neutrophils # Man Lymphocytes # (Manual) Monocytes # (Manual) ABG pH POC ABG pCO2 POC ABG pO2 ABG Hemoglobin ABG Oxyhemoglobin ABG Sodium ABG Potassium ABG Chloride ABG Glucose Carboxyhemoglobin Sodium Potassium 3.4 L D Chloride BUN Creatinine Glucose POC Glucose 208 H 173 H Calcium Phosphorus Magnesium AST ALT Total Creatine Kinase CK-MB (CK-2) Troponin T Total Protein Albumin HDL Cholesterol TSH Free T3 Index Arterial Blood Glucose Arterial Blood Ionized Calcium Urine pH Urine WBC (Auto) Urine Creatinine Acetaminophen 04/20/21 04/20/21 04/20/21 02:56 03:32 03:32 WBC 13.2 H RBC 3.18 L Hgb Hct MCV RDW Plt Count Lymph % (Auto) Seg Neutrophils % Seg Neuts % (Manual) Lymphocytes % (Manual) Monocytes % (Manual) Seg Neutrophils # Seg Neutrophils # Man Lymphocytes # (Manual) Monocytes # (Manual) ABG pH 7.526 H POC ABG pCO2 POC ABG pO2 ABG Hemoglobin 10.5 L ABG Oxyhemoglobin ABG Sodium 133.5 L ABG Potassium ABG Chloride ABG Glucose 157 H Carboxyhemoglobin 0.3 L Sodium 135 L Potassium Chloride 96.7 L BUN 40 H Creatinine 2.3 H Glucose 142 H POC Glucose Calcium Phosphorus Magnesium AST ALT Total Creatine Kinase CK-MB (CK-2) Troponin T 0.065 H Total Protein Albumin HDL Cholesterol TSH Free T3 Index Arterial Blood Glucose 157 H Arterial Blood Ionized Calcium Urine pH Urine WBC (Auto) Urine Creatinine Acetaminophen 04/20/21 04/20/21 04/20/21 03:46 05:42 11:50 WBC RBC Hgb Hct MCV RDW Plt Count Lymph % (Auto) Seg Neutrophils % Seg Neuts % (Manual) Lymphocytes % (Manual) Monocytes % (Manual) Seg Neutrophils # Seg Neutrophils # Man Lymphocytes # (Manual) Monocytes # (Manual) ABG pH POC ABG pCO2 POC ABG pO2 ABG Hemoglobin ABG Oxyhemoglobin ABG Sodium ABG Potassium ABG Chloride ABG Glucose Carboxyhemoglobin Sodium Potassium Chloride BUN Creatinine Glucose POC Glucose 160 H 194 H Calcium Phosphorus 2.10 L Magnesium AST ALT Total Creatine Kinase CK-MB (CK-2) Troponin T Total Protein Albumin HDL Cholesterol TSH Free T3 Index Arterial Blood Glucose Arterial Blood Ionized Calcium Urine pH Urine WBC (Auto) Urine Creatinine Acetaminophen 04/20/21 04/20/21 04/21/21 17:09 23:18 05:26 WBC RBC Hgb Hct MCV RDW Plt Count Lymph % (Auto) Seg Neutrophils % Seg Neuts % (Manual) Lymphocytes % (Manual) Monocytes % (Manual) Seg Neutrophils # Seg Neutrophils # Man Lymphocytes # (Manual) Monocytes # (Manual) ABG pH POC ABG pCO2 POC ABG pO2 ABG Hemoglobin ABG Oxyhemoglobin ABG Sodium ABG Potassium ABG Chloride ABG Glucose Carboxyhemoglobin Sodium Potassium Chloride BUN Creatinine Glucose POC Glucose 153 H 162 H 164 H Calcium Phosphorus Magnesium AST ALT Total Creatine Kinase CK-MB (CK-2) Troponin T Total Protein Albumin HDL Cholesterol TSH Free T3 Index Arterial Blood Glucose Arterial Blood Ionized Calcium Urine pH Urine WBC (Auto) Urine Creatinine Acetaminophen 04/21/21 04/21/21 04/21/21 05:51 05:51 12:12 WBC RBC 3.20 L Hgb Hct MCV 99 H RDW 15.3 H Plt Count Lymph % (Auto) Seg Neutrophils % Seg Neuts % (Manual) Lymphocytes % (Manual) Monocytes % (Manual) Seg Neutrophils # Seg Neutrophils # Man Lymphocytes # (Manual) Monocytes # (Manual) ABG pH POC ABG pCO2 POC ABG pO2 ABG Hemoglobin ABG Oxyhemoglobin ABG Sodium ABG Potassium ABG Chloride ABG Glucose Carboxyhemoglobin Sodium Potassium Chloride 96.6 L BUN 42 H Creatinine 2.1 H Glucose 171 H POC Glucose 167 H Calcium Phosphorus Magnesium AST ALT Total Creatine Kinase CK-MB (CK-2) Troponin T Total Protein Albumin HDL Cholesterol TSH Free T3 Index Arterial Blood Glucose Arterial Blood Ionized Calcium Urine pH Urine WBC (Auto) Urine Creatinine Acetaminophen 04/21/21 04/21/21 04/22/21 17:13 23:42 05:29 WBC RBC Hgb Hct MCV RDW Plt Count Lymph % (Auto) Seg Neutrophils % Seg Neuts % (Manual) Lymphocytes % (Manual) Monocytes % (Manual) Seg Neutrophils # Seg Neutrophils # Man Lymphocytes # (Manual) Monocytes # (Manual) ABG pH POC ABG pCO2 POC ABG pO2 ABG Hemoglobin ABG Oxyhemoglobin ABG Sodium ABG Potassium ABG Chloride ABG Glucose Carboxyhemoglobin Sodium Potassium Chloride BUN Creatinine Glucose POC Glucose 178 H 253 H 208 H Calcium Phosphorus Magnesium AST ALT Total Creatine Kinase CK-MB (CK-2) Troponin T Total Protein Albumin HDL Cholesterol TSH Free T3 Index Arterial Blood Glucose Arterial Blood Ionized Calcium Urine pH Urine WBC (Auto) Urine Creatinine Acetaminophen 04/22/21 04/22/21 04/22/21 08:00 08:00 12:06 WBC 12.9 H RBC Hgb Hct MCV RDW Plt Count Lymph % (Auto) Seg Neutrophils % Seg Neuts % (Manual) Lymphocytes % (Manual) Monocytes % (Manual) Seg Neutrophils # Seg Neutrophils # Man Lymphocytes # (Manual) Monocytes # (Manual) ABG pH POC ABG pCO2 POC ABG pO2 ABG Hemoglobin ABG Oxyhemoglobin ABG Sodium ABG Potassium ABG Chloride ABG Glucose Carboxyhemoglobin Sodium Potassium Chloride BUN 47 H Creatinine 1.9 H Glucose 252 H POC Glucose 298 H Calcium Phosphorus Magnesium AST ALT Total Creatine Kinase CK-MB (CK-2) Troponin T Total Protein Albumin HDL Cholesterol TSH Free T3 Index Arterial Blood Glucose Arterial Blood Ionized Calcium Urine pH Urine WBC (Auto) Urine Creatinine Acetaminophen 04/22/21 04/22/21 04/23/21 17:34 23:01 05:08 WBC RBC Hgb Hct MCV RDW Plt Count Lymph % (Auto) Seg Neutrophils % Seg Neuts % (Manual) Lymphocytes % (Manual) Monocytes % (Manual) Seg Neutrophils # Seg Neutrophils # Man Lymphocytes # (Manual) Monocytes # (Manual) ABG pH POC ABG pCO2 POC ABG pO2 ABG Hemoglobin ABG Oxyhemoglobin ABG Sodium ABG Potassium ABG Chloride ABG Glucose Carboxyhemoglobin Sodium Potassium Chloride BUN Creatinine Glucose POC Glucose 259 H 280 H 223 H Calcium Phosphorus Magnesium AST ALT Total Creatine Kinase CK-MB (CK-2) Troponin T Total Protein Albumin HDL Cholesterol TSH Free T3 Index Arterial Blood Glucose Arterial Blood Ionized Calcium Urine pH Urine WBC (Auto) Urine Creatinine Acetaminophen 04/23/21 04/23/21 04/23/21 07:02 11:57 17:33 WBC RBC Hgb Hct MCV RDW Plt Count Lymph % (Auto) Seg Neutrophils % Seg Neuts % (Manual) Lymphocytes % (Manual) Monocytes % (Manual) Seg Neutrophils # Seg Neutrophils # Man Lymphocytes # (Manual) Monocytes # (Manual) ABG pH POC ABG pCO2 POC ABG pO2 ABG Hemoglobin ABG Oxyhemoglobin ABG Sodium ABG Potassium ABG Chloride ABG Glucose Carboxyhemoglobin Sodium Potassium Chloride 97.7 L BUN 57 H Creatinine 2.0 H Glucose 253 H POC Glucose 310 H 235 H Calcium Phosphorus Magnesium AST ALT Total Creatine Kinase CK-MB (CK-2) Troponin T Total Protein Albumin HDL Cholesterol TSH Free T3 Index Arterial Blood Glucose Arterial Blood Ionized Calcium Urine pH Urine WBC (Auto) Urine Creatinine Acetaminophen 04/23/21 04/24/21 04/24/21 23:15 05:23 05:46 WBC RBC Hgb Hct MCV RDW Plt Count Lymph % (Auto) Seg Neutrophils % Seg Neuts % (Manual) Lymphocytes % (Manual) Monocytes % (Manual) Seg Neutrophils # Seg Neutrophils # Man Lymphocytes # (Manual) Monocytes # (Manual) ABG pH POC ABG pCO2 POC ABG pO2 ABG Hemoglobin ABG Oxyhemoglobin ABG Sodium ABG Potassium ABG Chloride ABG Glucose Carboxyhemoglobin Sodium Potassium 5.2 H D Chloride BUN 68 H Creatinine 2.3 H Glucose 277 H POC Glucose 197 H 274 H Calcium Phosphorus Magnesium AST ALT Total Creatine Kinase CK-MB (CK-2) Troponin T Total Protein Albumin HDL Cholesterol TSH Free T3 Index Arterial Blood Glucose Arterial Blood Ionized Calcium Urine pH Urine WBC (Auto) Urine Creatinine Acetaminophen 04/24/21 04/24/21 04/24/21 11:33 11:52 17:49 WBC RBC Hgb Hct MCV RDW Plt Count Lymph % (Auto) Seg Neutrophils % Seg Neuts % (Manual) Lymphocytes % (Manual) Monocytes % (Manual) Seg Neutrophils # Seg Neutrophils # Man Lymphocytes # (Manual) Monocytes # (Manual) ABG pH POC ABG pCO2 POC ABG pO2 72.7 L ABG Hemoglobin 11.6 L ABG Oxyhemoglobin 92.9 L ABG Sodium ABG Potassium ABG Chloride ABG Glucose 269 H Carboxyhemoglobin Sodium Potassium Chloride BUN Creatinine Glucose POC Glucose 223 H 252 H Calcium Phosphorus Magnesium AST ALT Total Creatine Kinase CK-MB (CK-2) Troponin T Total Protein Albumin HDL Cholesterol TSH Free T3 Index Arterial Blood Glucose 269 H Arterial Blood Ionized Calcium Urine pH Urine WBC (Auto) Urine Creatinine Acetaminophen 04/24/21 04/24/21 04/25/21 21:00 23:48 03:06 WBC RBC Hgb Hct MCV RDW Plt Count Lymph % (Auto) Seg Neutrophils % Seg Neuts % (Manual) Lymphocytes % (Manual) Monocytes % (Manual) Seg Neutrophils # Seg Neutrophils # Man Lymphocytes # (Manual) Monocytes # (Manual) ABG pH 7.521 H 7.451 H POC ABG pCO2 POC ABG pO2 80.7 L 77.1 L ABG Hemoglobin 10.4 L 11.2 L ABG Oxyhemoglobin ABG Sodium ABG Potassium ABG Chloride ABG Glucose 186 H 165 H Carboxyhemoglobin 0 L Sodium Potassium Chloride BUN Creatinine Glucose POC Glucose 141 H Calcium Phosphorus Magnesium AST ALT Total Creatine Kinase CK-MB (CK-2) Troponin T Total Protein Albumin HDL Cholesterol TSH Free T3 Index Arterial Blood Glucose 186 H 165 H Arterial Blood Ionized Calcium Urine pH Urine WBC (Auto) Urine Creatinine Acetaminophen 04/25/21 04/25/21 04/25/21 03:56 03:56 06:03 WBC 12.3 H RBC 3.40 L Hgb Hct MCV RDW Plt Count Lymph % (Auto) Seg Neutrophils % Seg Neuts % (Manual) Lymphocytes % (Manual) Monocytes % (Manual) Seg Neutrophils # Seg Neutrophils # Man Lymphocytes # (Manual) Monocytes # (Manual) ABG pH POC ABG pCO2 POC ABG pO2 ABG Hemoglobin ABG Oxyhemoglobin ABG Sodium ABG Potassium ABG Chloride ABG Glucose Carboxyhemoglobin Sodium Potassium Chloride BUN 78 H Creatinine 2.5 H Glucose 152 H POC Glucose 171 H Calcium Phosphorus Magnesium AST ALT Total Creatine Kinase CK-MB (CK-2) Troponin T Total Protein Albumin HDL Cholesterol TSH Free T3 Index Arterial Blood Glucose Arterial Blood Ionized Calcium Urine pH Urine WBC (Auto) Urine Creatinine Acetaminophen 04/25/21 04/25/21 04/26/21 11:43 15:37 00:05 WBC RBC Hgb Hct MCV RDW Plt Count Lymph % (Auto) Seg Neutrophils % Seg Neuts % (Manual) Lymphocytes % (Manual) Monocytes % (Manual) Seg Neutrophils # Seg Neutrophils # Man Lymphocytes # (Manual) Monocytes # (Manual) ABG pH POC ABG pCO2 POC ABG pO2 ABG Hemoglobin ABG Oxyhemoglobin ABG Sodium ABG Potassium ABG Chloride ABG Glucose Carboxyhemoglobin Sodium Potassium Chloride BUN Creatinine Glucose POC Glucose 181 H 167 H 144 H Calcium Phosphorus Magnesium AST ALT Total Creatine Kinase CK-MB (CK-2) Troponin T Total Protein Albumin HDL Cholesterol TSH Free T3 Index Arterial Blood Glucose Arterial Blood Ionized Calcium Urine pH Urine WBC (Auto) Urine Creatinine Acetaminophen 04/26/21 04/26/21 04/26/21 04:30 05:44 09:30 WBC RBC Hgb Hct MCV RDW Plt Count Lymph % (Auto) Seg Neutrophils % Seg Neuts % (Manual) Lymphocytes % (Manual) Monocytes % (Manual) Seg Neutrophils # Seg Neutrophils # Man Lymphocytes # (Manual) Monocytes # (Manual) ABG pH 7.529 H POC ABG pCO2 POC ABG pO2 66.1 L ABG Hemoglobin 11.2 L ABG Oxyhemoglobin 92.8 L ABG Sodium ABG Potassium ABG Chloride ABG Glucose 216 H Carboxyhemoglobin 0.3 L Sodium Potassium Chloride BUN 82 H Creatinine 2.7 H Glucose 238 H POC Glucose 202 H Calcium Phosphorus Magnesium AST ALT Total Creatine Kinase CK-MB (CK-2) Troponin T Total Protein Albumin HDL Cholesterol TSH Free T3 Index Arterial Blood Glucose 216 H Arterial Blood Ionized Calcium Urine pH Urine WBC (Auto) Urine Creatinine Acetaminophen 04/26/21 04/26/21 04/26/21 09:30 11:32 17:21 WBC 24.7 H RBC 3.32 L Hgb Hct MCV RDW Plt Count Lymph % (Auto) Seg Neutrophils % Seg Neuts % (Manual) Lymphocytes % (Manual) Monocytes % (Manual) Seg Neutrophils # Seg Neutrophils # Man Lymphocytes # (Manual) Monocytes # (Manual) ABG pH POC ABG pCO2 POC ABG pO2 ABG Hemoglobin ABG Oxyhemoglobin ABG Sodium ABG Potassium ABG Chloride ABG Glucose Carboxyhemoglobin Sodium Potassium Chloride BUN Creatinine Glucose POC Glucose 245 H 264 H Calcium Phosphorus Magnesium AST ALT Total Creatine Kinase CK-MB (CK-2) Troponin T Total Protein Albumin HDL Cholesterol TSH Free T3 Index Arterial Blood Glucose Arterial Blood Ionized Calcium Urine pH Urine WBC (Auto) Urine Creatinine Acetaminophen 04/26/21 04/27/21 04/27/21 23:18 04:23 04:54 WBC RBC Hgb Hct MCV RDW Plt Count Lymph % (Auto) Seg Neutrophils % Seg Neuts % (Manual) Lymphocytes % (Manual) Monocytes % (Manual) Seg Neutrophils # Seg Neutrophils # Man Lymphocytes # (Manual) Monocytes # (Manual) ABG pH 7.549 H POC ABG pCO2 30.0 L POC ABG pO2 64.9 L ABG Hemoglobin 11 L ABG Oxyhemoglobin 93.3 L ABG Sodium ABG Potassium ABG Chloride ABG Glucose 325 H Carboxyhemoglobin 0.3 L Sodium Potassium Chloride BUN Creatinine Glucose POC Glucose 201 H 298 H Calcium Phosphorus Magnesium AST ALT Total Creatine Kinase CK-MB (CK-2) Troponin T Total Protein Albumin HDL Cholesterol TSH Free T3 Index Arterial Blood Glucose 325 H Arterial Blood Ionized Calcium Urine pH Urine WBC (Auto) Urine Creatinine Acetaminophen 04/27/21 04/27/21 04/27/21 07:52 07:52 11:22 WBC 23.0 H RBC 3.32 L Hgb Hct MCV RDW 15.5 H Plt Count Lymph % (Auto) Seg Neutrophils % Seg Neuts % (Manual) Lymphocytes % (Manual) Monocytes % (Manual) Seg Neutrophils # Seg Neutrophils # Man Lymphocytes # (Manual) Monocytes # (Manual) ABG pH POC ABG pCO2 POC ABG pO2 ABG Hemoglobin ABG Oxyhemoglobin ABG Sodium ABG Potassium ABG Chloride ABG Glucose Carboxyhemoglobin Sodium Potassium 3.5 L Chloride BUN 90 H Creatinine 2.8 H Glucose 286 H POC Glucose 251 H Calcium Phosphorus Magnesium AST ALT Total Creatine Kinase CK-MB (CK-2) Troponin T Total Protein Albumin HDL Cholesterol TSH Free T3 Index Arterial Blood Glucose Arterial Blood Ionized Calcium Urine pH Urine WBC (Auto) Urine Creatinine Acetaminophen 04/27/21 04/27/21 04/27/21 17:21 17:45 23:05 WBC RBC Hgb Hct MCV RDW Plt Count Lymph % (Auto) Seg Neutrophils % Seg Neuts % (Manual) Lymphocytes % (Manual) Monocytes % (Manual) Seg Neutrophils # Seg Neutrophils # Man Lymphocytes # (Manual) Monocytes # (Manual) ABG pH POC ABG pCO2 POC ABG pO2 ABG Hemoglobin ABG Oxyhemoglobin ABG Sodium ABG Potassium ABG Chloride ABG Glucose Carboxyhemoglobin Sodium Potassium Chloride BUN Creatinine Glucose POC Glucose 180 H 178 H 189 H Calcium Phosphorus Magnesium AST ALT Total Creatine Kinase CK-MB (CK-2) Troponin T Total Protein Albumin HDL Cholesterol TSH Free T3 Index Arterial Blood Glucose Arterial Blood Ionized Calcium Urine pH Urine WBC (Auto) Urine Creatinine Acetaminophen 04/28/21 04/28/21 04/28/21 03:14 04:13 04:13 WBC 17.6 H RBC 3.03 L Hgb 9.7 L Hct 29.5 L MCV RDW Plt Count Lymph % (Auto) Seg Neutrophils % Seg Neuts % (Manual) Lymphocytes % (Manual) Monocytes % (Manual) Seg Neutrophils # Seg Neutrophils # Man Lymphocytes # (Manual) Monocytes # (Manual) ABG pH 7.507 H POC ABG pCO2 POC ABG pO2 62.0 L ABG Hemoglobin 10.2 L ABG Oxyhemoglobin 91.9 L ABG Sodium ABG Potassium ABG Chloride ABG Glucose 337 H Carboxyhemoglobin 0.2 L Sodium Potassium Chloride BUN 101 H Creatinine 3.1 H Glucose 304 H POC Glucose Calcium Phosphorus Magnesium AST 61 H ALT 64 H Total Creatine Kinase CK-MB (CK-2) Troponin T Total Protein 6.2 L Albumin 2.6 L HDL Cholesterol TSH Free T3 Index Arterial Blood Glucose 337 H Arterial Blood Ionized Calcium Urine pH Urine WBC (Auto) Urine Creatinine Acetaminophen 04/28/21 04/28/21 04/28/21 05:01 11:28 18:23 WBC RBC Hgb Hct MCV RDW Plt Count Lymph % (Auto) Seg Neutrophils % Seg Neuts % (Manual) Lymphocytes % (Manual) Monocytes % (Manual) Seg Neutrophils # Seg Neutrophils # Man Lymphocytes # (Manual) Monocytes # (Manual) ABG pH POC ABG pCO2 POC ABG pO2 ABG Hemoglobin ABG Oxyhemoglobin ABG Sodium ABG Potassium ABG Chloride ABG Glucose Carboxyhemoglobin Sodium Potassium Chloride BUN Creatinine Glucose POC Glucose 282 H 263 H 200 H Calcium Phosphorus Magnesium AST ALT Total Creatine Kinase CK-MB (CK-2) Troponin T Total Protein Albumin HDL Cholesterol TSH Free T3 Index Arterial Blood Glucose Arterial Blood Ionized Calcium Urine pH Urine WBC (Auto) Urine Creatinine Acetaminophen 04/28/21 04/29/21 04/29/21 23:49 03:24 04:22 WBC RBC Hgb Hct MCV RDW Plt Count Lymph % (Auto) Seg Neutrophils % Seg Neuts % (Manual) Lymphocytes % (Manual) Monocytes % (Manual) Seg Neutrophils # Seg Neutrophils # Man Lymphocytes # (Manual) Monocytes # (Manual) ABG pH 7.546 H POC ABG pCO2 POC ABG pO2 52.4 L ABG Hemoglobin 10.5 L ABG Oxyhemoglobin 88.3 L ABG Sodium ABG Potassium ABG Chloride ABG Glucose 217 H Carboxyhemoglobin 0.4 L Sodium 148 H Potassium Chloride BUN 110 H Creatinine 3.1 H Glucose 208 H POC Glucose 238 H Calcium Phosphorus Magnesium AST ALT Total Creatine Kinase CK-MB (CK-2) Troponin T Total Protein Albumin HDL Cholesterol TSH Free T3 Index Arterial Blood Glucose 217 H Arterial Blood Ionized Calcium Urine pH Urine WBC (Auto) Urine Creatinine Acetaminophen 04/29/21 04/29/21 04/29/21 04:22 05:08 11:26 WBC 15.2 H RBC 3.30 L Hgb 9.8 L Hct MCV RDW Plt Count Lymph % (Auto) Seg Neutrophils % Seg Neuts % (Manual) Lymphocytes % (Manual) Monocytes % (Manual) Seg Neutrophils # Seg Neutrophils # Man Lymphocytes # (Manual) Monocytes # (Manual) ABG pH POC ABG pCO2 POC ABG pO2 ABG Hemoglobin ABG Oxyhemoglobin ABG Sodium ABG Potassium ABG Chloride ABG Glucose Carboxyhemoglobin Sodium Potassium Chloride BUN Creatinine Glucose POC Glucose 181 H 218 H Calcium Phosphorus Magnesium AST ALT Total Creatine Kinase CK-MB (CK-2) Troponin T Total Protein Albumin HDL Cholesterol TSH Free T3 Index Arterial Blood Glucose Arterial Blood Ionized Calcium Urine pH Urine WBC (Auto) Urine Creatinine Acetaminophen 04/29/21 04/29/21 04/30/21 17:06 23:06 03:58 WBC RBC Hgb Hct MCV RDW Plt Count Lymph % (Auto) Seg Neutrophils % Seg Neuts % (Manual) Lymphocytes % (Manual) Monocytes % (Manual) Seg Neutrophils # Seg Neutrophils # Man Lymphocytes # (Manual) Monocytes # (Manual) ABG pH 7.547 H POC ABG pCO2 31.3 L POC ABG pO2 58.4 L ABG Hemoglobin 9.6 L ABG Oxyhemoglobin 91.1 L ABG Sodium ABG Potassium ABG Chloride 108.0 H ABG Glucose 248 H Carboxyhemoglobin 0.2 L Sodium Potassium Chloride BUN Creatinine Glucose POC Glucose 223 H 252 H Calcium Phosphorus Magnesium AST ALT Total Creatine Kinase CK-MB (CK-2) Troponin T Total Protein Albumin HDL Cholesterol TSH Free T3 Index Arterial Blood Glucose 248 H Arterial Blood Ionized Calcium Urine pH Urine WBC (Auto) Urine Creatinine Acetaminophen 04/30/21 04/30/21 04/30/21 05:23 05:54 11:47 WBC RBC Hgb Hct MCV RDW Plt Count Lymph % (Auto) Seg Neutrophils % Seg Neuts % (Manual) Lymphocytes % (Manual) Monocytes % (Manual) Seg Neutrophils # Seg Neutrophils # Man Lymphocytes # (Manual) Monocytes # (Manual) ABG pH POC ABG pCO2 POC ABG pO2 ABG Hemoglobin ABG Oxyhemoglobin ABG Sodium ABG Potassium ABG Chloride ABG Glucose Carboxyhemoglobin Sodium Potassium Chloride BUN 118 H Creatinine 3.3 H Glucose 263 H POC Glucose 244 H 237 H Calcium Phosphorus Magnesium AST ALT Total Creatine Kinase CK-MB (CK-2) Troponin T Total Protein Albumin HDL Cholesterol TSH Free T3 Index Arterial Blood Glucose Arterial Blood Ionized Calcium Urine pH Urine WBC (Auto) Urine Creatinine Acetaminophen 04/30/21 04/30/21 04/30/21 17:26 17:45 23:51 WBC RBC Hgb Hct MCV RDW Plt Count Lymph % (Auto) Seg Neutrophils % Seg Neuts % (Manual) Lymphocytes % (Manual) Monocytes % (Manual) Seg Neutrophils # Seg Neutrophils # Man Lymphocytes # (Manual) Monocytes # (Manual) ABG pH POC ABG pCO2 POC ABG pO2 ABG Hemoglobin ABG Oxyhemoglobin ABG Sodium ABG Potassium ABG Chloride ABG Glucose Carboxyhemoglobin Sodium Potassium Chloride BUN Creatinine Glucose POC Glucose 193 H 197 H Calcium Phosphorus Magnesium AST ALT Total Creatine Kinase CK-MB (CK-2) Troponin T Total Protein Albumin HDL Cholesterol TSH Free T3 Index Arterial Blood Glucose Arterial Blood Ionized Calcium Urine pH Urine WBC (Auto) 48.0 H Urine Creatinine Acetaminophen 05/01/21 05/01/21 05/01/21 04:02 04:57 07:11 WBC 12.3 H RBC 2.83 L Hgb 8.8 L Hct 27.3 L MCV RDW Plt Count Lymph % (Auto) Seg Neutrophils % Seg Neuts % (Manual) 80.0 H Lymphocytes % (Manual) 5.0 L Monocytes % (Manual) Seg Neutrophils # Seg Neutrophils # Man 9.8 H Lymphocytes # (Manual) 0.6 L Monocytes # (Manual) ABG pH 7.466 H POC ABG pCO2 POC ABG pO2 61.4 L ABG Hemoglobin 9.0 L ABG Oxyhemoglobin 91.1 L ABG Sodium ABG Potassium ABG Chloride 110.0 H ABG Glucose 245 H Carboxyhemoglobin Sodium Potassium Chloride BUN Creatinine Glucose POC Glucose 193 H Calcium Phosphorus Magnesium AST ALT Total Creatine Kinase CK-MB (CK-2) Troponin T Total Protein Albumin HDL Cholesterol TSH Free T3 Index Arterial Blood Glucose 245 H Arterial Blood Ionized Calcium Urine pH Urine WBC (Auto) Urine Creatinine Acetaminophen 05/01/21 05/01/21 05/01/21 07:11 07:45 11:30 WBC RBC Hgb Hct MCV RDW Plt Count Lymph % (Auto) Seg Neutrophils % Seg Neuts % (Manual) Lymphocytes % (Manual) Monocytes % (Manual) Seg Neutrophils # Seg Neutrophils # Man Lymphocytes # (Manual) Monocytes # (Manual) ABG pH POC ABG pCO2 POC ABG pO2 ABG Hemoglobin ABG Oxyhemoglobin ABG Sodium ABG Potassium ABG Chloride ABG Glucose Carboxyhemoglobin Sodium 146 H Potassium Chloride 108.4 H BUN 122 H Creatinine 3.4 H Glucose 235 H POC Glucose 212 H 247 H Calcium Phosphorus Magnesium AST ALT Total Creatine Kinase CK-MB (CK-2) Troponin T Total Protein Albumin HDL Cholesterol TSH Free T3 Index Arterial Blood Glucose Arterial Blood Ionized Calcium Urine pH Urine WBC (Auto) Urine Creatinine Acetaminophen 05/01/21 05/01/21 05/01/21 11:31 17:42 23:49 WBC RBC Hgb Hct MCV RDW Plt Count Lymph % (Auto) Seg Neutrophils % Seg Neuts % (Manual) Lymphocytes % (Manual) Monocytes % (Manual) Seg Neutrophils # Seg Neutrophils # Man Lymphocytes # (Manual) Monocytes # (Manual) ABG pH POC ABG pCO2 POC ABG pO2 ABG Hemoglobin ABG Oxyhemoglobin ABG Sodium ABG Potassium ABG Chloride ABG Glucose Carboxyhemoglobin Sodium Potassium Chloride BUN Creatinine Glucose POC Glucose 258 H 171 H 167 H Calcium Phosphorus Magnesium AST ALT Total Creatine Kinase CK-MB (CK-2) Troponin T Total Protein Albumin HDL Cholesterol TSH Free T3 Index Arterial Blood Glucose Arterial Blood Ionized Calcium Urine pH Urine WBC (Auto) Urine Creatinine Acetaminophen 05/02/21 05/02/21 05/02/21 05:12 08:34 11:53 WBC RBC Hgb Hct MCV RDW Plt Count Lymph % (Auto) Seg Neutrophils % Seg Neuts % (Manual) Lymphocytes % (Manual) Monocytes % (Manual) Seg Neutrophils # Seg Neutrophils # Man Lymphocytes # (Manual) Monocytes # (Manual) ABG pH POC ABG pCO2 POC ABG pO2 ABG Hemoglobin ABG Oxyhemoglobin ABG Sodium ABG Potassium ABG Chloride ABG Glucose Carboxyhemoglobin Sodium 148 H Potassium Chloride 110.4 H BUN 124 H Creatinine 3.4 H Glucose 208 H POC Glucose 163 H 185 H Calcium 8.3 L Phosphorus Magnesium AST ALT Total Creatine Kinase CK-MB (CK-2) Troponin T Total Protein Albumin HDL Cholesterol TSH Free T3 Index Arterial Blood Glucose Arterial Blood Ionized Calcium Urine pH Urine WBC (Auto) Urine Creatinine Acetaminophen 05/02/21 05/02/21 05/03/21 17:28 23:32 03:57 WBC RBC Hgb Hct MCV RDW Plt Count Lymph % (Auto) Seg Neutrophils % Seg Neuts % (Manual) Lymphocytes % (Manual) Monocytes % (Manual) Seg Neutrophils # Seg Neutrophils # Man Lymphocytes # (Manual) Monocytes # (Manual) ABG pH 7.531 H POC ABG pCO2 31.0 L POC ABG pO2 64.3 L ABG Hemoglobin 9.0 L ABG Oxyhemoglobin 92.6 L ABG Sodium 145.7 H ABG Potassium ABG Chloride 112.0 H ABG Glucose 202 H Carboxyhemoglobin Sodium Potassium Chloride BUN Creatinine Glucose POC Glucose 147 H 202 H Calcium Phosphorus Magnesium AST ALT Total Creatine Kinase CK-MB (CK-2) Troponin T Total Protein Albumin HDL Cholesterol TSH Free T3 Index Arterial Blood Glucose 202 H Arterial Blood Ionized Calcium Urine pH Urine WBC (Auto) Urine Creatinine Acetaminophen 05/03/21 05/03/21 05/03/21 05:14 05:44 11:10 WBC RBC Hgb Hct MCV RDW Plt Count Lymph % (Auto) Seg Neutrophils % Seg Neuts % (Manual) Lymphocytes % (Manual) Monocytes % (Manual) Seg Neutrophils # Seg Neutrophils # Man Lymphocytes # (Manual) Monocytes # (Manual) ABG pH POC ABG pCO2 POC ABG pO2 ABG Hemoglobin ABG Oxyhemoglobin ABG Sodium ABG Potassium ABG Chloride ABG Glucose Carboxyhemoglobin Sodium 147 H Potassium Chloride 109.7 H BUN 121 H Creatinine 3.1 H Glucose 190 H POC Glucose 175 H 202 H Calcium Phosphorus Magnesium AST ALT Total Creatine Kinase CK-MB (CK-2) Troponin T Total Protein Albumin HDL Cholesterol TSH Free T3 Index Arterial Blood Glucose Arterial Blood Ionized Calcium Urine pH Urine WBC (Auto) Urine Creatinine Acetaminophen Chest x-ray: other (none today) Allied health notes reviewed: nursing
[2021-05-03] MEDS: hydrALAZINE 25 MG TAB PO SCH ×2 (14:48→21:38)
[2021-05-03] MEDS: SODIUM CHLORIDE 0.45% 1000 ML 1,000 ML IV SCH (14:50)
--- NOTE | 2021-05-03 15:14 | Progress Note ---
<JEREMYPURNIMA LeyvaElvia - Last Filed: 05/03/21 15:12> Assessment and Plan Assessment and plan: This is a 80-year-old female with HTN, DM, KS, breast CA s/p double mastectomy, TIA who presented with hypoglycemia, AMS who was admitted with SIRS, symptomatic bradycardia, acute metabolic encephalopathy, acute hypoxic respiratory failure, elevated TSH, hyperglycemia, hyponatremia, hypokalemia, ROJELIO and rhabdomyolysis Acute metabolic encephalopathy-persist Acute hypoxic respiratory failure (extubated 04/20)- Re-intubated secondary to Stridor and paradoxical breathing First-degree heart block Resolved ileus versus mechanical obstruction Acute kidney injury with vasomotor nephropathy UTI, Pseudomonas/ Earline Hypernatremia Hyperchloremia Elevated TSH Leukocytosis Mild rhabdomyolysis Hypertension Diabetes mellitus with hyperglycemia on admission CAD Hypothyrodisim Chronic illness debilitymyopathy Obesity -CCM, nephrology, neurology, cardiology consulted, patient recommendations -S/p D10 and D5W gtt, on TF -S/p IV calcium gluconate, regular insulin, D50 -S/p transcutaneous pacing, intermittent demand pacer in place -Renal ultrasound findings consistent with acute on chronic kidney disease, mildly complex right renal cyst -Blood pressure monitoring per protocol -Accu-Cheks every 6, SSI, long acting insulin -IV hydralazine as needed -04/25 EEG is mildly abnormal with mild slowing noted throughout the recording, suggestive of mild cortical dysfunction and/or drug effect -04/20 EEG shows mildly abnormal record due to diffuse background slowing noted throughout the recording, intermittent motion artifact, patient intubated and sedated at time of study, no sign of seizures as well epilepticus noted, possible toxic metabolic encephalopathy, drug effect, possible postictal state cannot be totally excluded. -Avoid ACEi/ARB in setting of ROJELIO -Avoid AV arron blocking agents -Avoid nephrotoxic agents and renally dose medications -BB, add home antihtn regimen as needed -TSH 14.1, T4 4.1, T3 pending-started on levothyroxine -Provegil -As needed racemic epinephrine -S/p steroids -Antibiotic therapy -Trend CBC, BMP, CK DVT/GI prophylaxis: Heparin subcu, PPI, SCDs to bilateral lower extremities while in bed Disposition: ICU The high probability of a clinically significant, sudden or life threatening deterioration of the [PULMONARY, CARDIAC, RENAL] system(s) required my full and direct attention, intervention and personal management. The aggregate critical care time was [35] minutes. This time is in addition to time spent performing reported procedures but includes the following: [X] Data Review and interpretation [X] Patient assessment and monitoring of vital signs [X] Documentation [X] Medication orders and management History Interval history: This is a 80-year-old female with hypertension, diabetes mellitus, KS, breast cancer s/p double mastectomy, and a TIA who presented with hypoglycemia and altered mental status on 04/15 via EMS. Per EMS patient was unresponsive on their arrival and her blood glucose was 38 and she received 1 amp of dextrose patient continued to be unresponsive and only moaned with her eyes deviating to the left. Work-up in the emergency department revealed SIRS, symptomatic bradycardia, acute metabolic encephalopathy, acute hypoxic respiratory failure, elevated TSH, hyperglycemia, hyponatremia, hyperkalemia, acute kidney injury with ATN, and rhabdomyolysis 04/16: Neurology consulted, COVID-19 PCR negative, D10 drip decreased and eventually discontinued by [facility] and started on D5W for 1 L. Hydralazine as needed. Patient had hyper kalemia today and was treated with D50, insulin and Kayexalate. This time examination patient is on assist control tidal volume 450, rate of 16, PEEP of 6 and 25% FiO2. 04/17: Patient started on low-dose beta-angel per cardiology, CPAP trial again per [facility], BUN/creatinine holding steady and hypochloremia/hyponatremia slightly improved and hypokalemia has resolved. This morning a KUB was obtained which was concerning for ileus versus mechanical obstruction and surgery was con sulted. Patient was made n.p.o. and NG tube placed to wall suction. Patient was given suppository. Per RN patient did not have a BM even though she was given Kayexalate yesterday. Will obtain a KUB in the a.m. Neurology was consulted yesterday and will await further recommendations. Nephew updated at bedside today, Carlos Romero. 04/18: Neurology has ordered EEG/MRI B, [facility] continues to wean MV. Persistent low grade temperature so we will obtain BCx2/UA. Patient has improving leukocytosis, hyponatremia, renal function studies and hypochloremia. She has hypokalemia today which is being repleted. Surgery has signed off today and has okayed resumption of TF. [facility] will trial CPAP for longer today and plans to attempt extubation in AM. Family has requested transfer to [place] and Dr. Gordon will attempt to contact transfer center. I updated her nephew, Carlos Romero over the phone today abouyt current events and update on transfer ([place] will conduct a utilization review) 04/19: This morning patient is on CPAP trial at the time of examination, noted to be hypertensive and metoprolol increased to home dose, started on synthroid by [facility], lantus started re hyperglycemia, MRI completed with no acute findings. Severe hypokalemia (repleted and Mg pending). [facility] will contact CPAP trial again today with possible trial extubation tomorrow. 04/20: Patient's leukocytosis and kidney function tests continue to improve. Patient is hypertensive overnight we will restart home hydralazine. [facility] plans to extubate patient today. Family is attempting to transfer to another facility. EEG pending, RT will atmept to contact opto mechanical technician. Urine culture grew gram negative rods. Increase in lantus 04/21: Increase in Lantus, repleted phos. Patient has started this afternoon and was given racemic epinephrine and started on steroids. Patient will have BiPAP as needed. We will recheck BMP in the a.m. renal function studies continues to decrease. Patient has been hypertensive on evaluation regimen has been changed. 04/22: Lantus increased for hyperglycemia and add amlodipine for better BP cont rol. Patient is on steroids. OT suctioned by RN with catheter in oral care kit and received copious amounts of secretions. Cr continues to decrease. Culture grew Pseudomonas and was changed in accordance to sensitivity. Kerr removed today after clearance from nephrology. 04/23: MRI of the brain was done and unremarkable. Will obtain reconsult to nephrology for further assistance as patient remains in profound encephalopathy despite improvement of blood sugar. Will repeat chest x-ray as patient does have significant congestion physical exam. Tube feeds still ongoing. Continue aspiration precautions. Continue antibiotics when completed for Pseudomonas management 04/24: Neurology input noted, patient unfortunately with no improvement mental status milton, continues with congestion, will defer with Ward Clerk for lasix in the setting of renal failure. will give kayexlate for hyperkalemia, still moans and groans, mittens in place. 04/25: Patient currently intubated, on restraints for safety, Profund encephalopathy persist, although awake she is not following any commands, Call bishnu pikejackelyn to [place] to see if they will accept transfer for ENT evaluation, while CT neck was negative, it was degraded by motion and unable to determent why patient had this stridor, Racemic Epinephrine was given, [place] is on ICU saturation, but will call back with an ENT to discuss case. Renal function mildly worse, continue to monitor. Per cardiology, no further arrhythmias noted since admission. Given short duration of atrial fibrillation, along with pt's age, renal fxn, and other co-morbidities,...will resume additional medical therapies for underlying severe multi-vessel CAD (bASA & Plavix). 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 04/26: Now with febrile illness, ?developing infection, start on empiric abx, check lactate level, blood cultures, continue management per Diet Technician Registered, Monitor leukocytosis, agree with Trach, family updated about denials in transfer request from outside hospitals. 04/27: WBC improving some, still with fever despite antibotics, ID consulted. CXR clear, continue current management, Trach will be planned if ok with family. Blood sugar remains elevated, will adjust insulin LANTUS to 40 units. Patient had previously completed Cefepime. Mental status remains unchanged, still moves upper ext. continue restraints 04/28: Continue supportive care. No new fever noted. Critical care physician will determine if patient should be have a trial of extubation again or if we should proceed straight to trach. Again continue to monitor mental status for complete improvement. 04/29: Per Diet Technician Registered discussion with family, will proceed to Tracheostomy, Patients mental status still fluctuating, Continue current management. Surgeon consulted. 04/30: General surgery consulted for trach, continue to trend CBC and BMP. Kidney function slightly worsened today. Increase in Lantus. Tmax 100.2, per ID will consider imaging if leukocytosis remains elevated with fevers. Plavix held for possible tracheostomy next week. 05/01: Patient fever curve is trending down with improving leukocytosis. Patient renal function worsened today. She remains hyperglycemic and her Lantus was increased to her home dose of Novolin 70/30. Patient was rate controlled yesterday due to T-max of 101. She remains on CMV tidal volume 450, rate of 10, PEEP of 6 and 30% FiO2. We will increase the water flushes given slight hypern atremia. Dr. Andrea updated nephew (Carlos) at bedside. CPAP trails. 05/02: Patient's hypernatremia and hyperchloremia slightly worsened and femur fractures were increased. Kidney functions remain the same however BUN is in the 100s. Nephrology is following. Kerr catheter was removed. Awaiting trach placement with possibility on Friday. 05/03: Patient grew Earline in her urine culture however per ID and the Kerr was already exchanged. Patient is on cefepime and Flagyl. Plavix still on hold awaiting trach. CCM started the patient on half-normal saline at 75 mL/h for 2 L related to azatoma and hypernatremia. Patient mental status continues to wax and wane. Creatinine is 3.1 today from 3.4 yesterday. Patient had a bowel movement today. Patient remains hyperglycemic and Lantus was changed from a.m. to p.m. Hospitalist Physical - Constitutional Vitals: Temp Pulse Resp BP Pulse Ox 98.3 F 67 23 121/45 100 05/03/21 11:00 05/03/21 14:48 05/03/21 13:01 05/03/21 14:48 05/03/21 13:01 General appearance: Present: no acute distress, other - EENT Eyes: Present: PERRL, EOM intact - Neck Neck: Present: normal ROM - Respiratory Respiratory effort: normal Respiratory: bilateral: diminished - Cardiovascular Rhythm: regular Heart Sounds: Present: S1 & S2. Absent: systolic murmur, diastolic murmur - Extremities Extremities: no ischemia, pulses intact, pulses symmetrical, No edema, normal temperature, normal color Peripheral Pulses: within normal limits - Abdominal General gastrointestinal: soft, non-tender, non-distended, normal bowel sounds - Integumentary Integumentary: Present: warm, dry - Psychiatric Psychiatric: cooperative - Neurologic Neurologic: moves all extremities - Allied Health Allied health notes reviewed: nursing, RT HEART Score - HEART Score Troponin: Troponin T 0.065 ng/mL (0.00-0.029) H 04/20/21 03:32 Results - Labs CBC & Chem 7: 05/01/21 07:11 05/03/21 05:14 Labs: Laboratory Last Values WBC 12.3 K/mm3 (4.5-11.0) H 05/01/21 07:11 RBC 2.83 M/mm3 (3.65-5.03) L 05/01/21 07:11 Hgb 8.8 gm/dl (10.1-14.3) L 05/01/21 07:11 Hct 27.3 % (30.3-42.9) L 05/01/21 07:11 MCV 96 fl (79-97) 05/01/21 07:11 MCH 31 pg (28-32) 05/01/21 07:11 MCHC 32 % (30-34) 05/01/21 07:11 RDW 15.2 % (13.2-15.2) 05/01/21 07:11 Plt Count 298 K/mm3 (140-440) 05/01/21 07:11 Lymph % (Auto) 12.8 % (13.4-35.0) L 04/15/21 17:20 Bledsoe % (Auto) 4.1 % (0.0-7.3) 04/15/21 17:20 Eos % (Auto) 0.3 % (0.0-4.3) 04/15/21 17:20 Baso % (Auto) 0.4 % (0.0-1.8) 04/15/21 17:20 Lymph # (Auto) 1.4 K/mm3 (1.2-5.4) 04/15/21 17:20 Bledsoe # (Auto) 0.5 K/mm3 (0.0-0.8) 04/15/21 17:20 Eos # (Auto) 0.0 K/mm3 (0.0-0.4) 04/15/21 17:20 Baso # (Auto) 0.0 K/mm3 (0.0-0.1) 04/15/21 17:20 Add Manual Diff Complete 05/01/21 07:11 Total Counted 100 05/01/21 07:11 Seg Neutrophils % 82.4 % (40.0-70.0) H 04/15/21 17:20 Seg Neuts % (Manual) 80.0 % (40.0-70.0) H 05/01/21 07:11 Band Neutrophils % 7.0 % 05/01/21 07:11 Lymphocytes % (Manual) 5.0 % (13.4-35.0) L 05/01/21 07:11 Monocytes % (Manual) 6.0 % (0.0-7.3) 05/01/21 07:11 Eosinophils % (Manual) 1.0 % (0.0-4.3) 05/01/21 07:11 Metamyelocytes % 1.0 % 05/01/21 07:11 Nucleated RBC % Not Reportable 05/01/21 07:11 Seg Neutrophils # 9.3 K/mm3 (1.8-7.7) H 04/15/21 17:20 Seg Neutrophils # Man 9.8 K/mm3 (1.8-7.7) H 05/01/21 07:11 Band Neutrophils # 0.9 K/mm3 05/01/21 07:11 Lymphocytes # (Manual) 0.6 K/mm3 (1.2-5.4) L 05/01/21 07:11 Abs React Lymphs (Man) 0.0 K/mm3 05/01/21 07:11 Monocytes # (Manual) 0.7 K/mm3 (0.0-0.8) 05/01/21 07:11 Eosinophils # (Manual) 0.1 K/mm3 (0.0-0.4) 05/01/21 07:11 Basophils # (Manual) 0.0 K/mm3 (0.0-0.1) 05/01/21 07:11 Metamyelocytes # 0.1 K/mm3 05/01/21 07:11 Myelocytes # 0.0 K/mm3 05/01/21 07:11 Promyelocytes # 0.0 K/mm3 05/01/21 07:11 Blast Cells # 0.0 K/mm3 05/01/21 07:11 WBC Morphology Not Reportable 05/01/21 07:11 Hypersegmented Neuts Not Reportable 05/01/21 07:11 Hyposegmented Neuts Not Reportable 05/01/21 07:11 Hypogranular Neuts Not Reportable 05/01/21 07:11 Smudge Cells Not Reportable 05/01/21 07:11 Toxic Granulation Not Reportable 05/01/21 07:11 Toxic Vacuolation Not Reportable 05/01/21 07:11 Dohle Bodies Not Reportable 05/01/21 07:11 Pelger-Huet Anomaly Not Reportable 05/01/21 07:11 Peterson Rods Not Reportable 05/01/21 07:11 Platelet Estimate Consistent w auto 05/01/21 07:11 Clumped Platelets Not Reportable 05/01/21 07:11 Plt Clumps, EDTA Not Reportable 05/01/21 07:11 Large Platelets Not Reportable 05/01/21 07:11 Giant Platelets Not Reportable 05/01/21 07:11 Platelet Satelliting Not Reportable 05/01/21 07:11 Plt Morphology Comment Not Reportable 05/01/21 07:11 RBC Morphology Normal 05/01/21 07:11 Dimorphic RBCs Not Reportable 05/01/21 07:11 Polychromasia Not Reportable 05/01/21 07:11 Hypochromasia Not Reportable 05/01/21 07:11 Poikilocytosis Not Reportable 05/01/21 07:11 Anisocytosis Not Reportable 05/01/21 07:11 Microcytosis Not Reportable 05/01/21 07:11 Macrocytosis Not Reportable 05/01/21 07:11 Spherocytes Not Reportable 05/01/21 07:11 Pappenheimer Bodies Not Reportable 05/01/21 07:11 Sickle Cells Not Reportable 05/01/21 07:11 Target Cells Not Reportable 05/01/21 07:11 Tear Drop Cells Not Reportable 05/01/21 07:11 Ovalocytes Not Reportable 05/01/21 07:11 Helmet Cells Not Reportable 05/01/21 07:[address] [place] Bodies Not Reportable 05/01/21 07:11 [place] Rings Not Reportable 05/01/21 07:11 Theo Cells Not Reportable 05/01/21 07:11 Bite Cells Not Reportable 05/01/21 07:11 Crenated Cell Not Reportable 05/01/21 07:11 Elliptocytes Not Reportable 05/01/21 07:11 Acanthocytes (Spur) Not Reportable 05/01/21 07:11 Rouleaux Not Reportable 05/01/21 07:11 Hemoglobin C Crystals Not Reportable 05/01/21 07:11 Schistocytes Not Reportable 05/01/21 07:11 Malaria parasites Not Reportable 05/01/21 07:11 James Bodies Not Reportable 05/01/21 07:11 Hem Pathologist Commnt No 05/01/21 07:11 PT 12.2 Sec. (12.2-14.9) 04/15/21 17:20 INR 0.91 (0.87-1.13) 04/15/21 17:20 APTT 31.8 Sec. (24.2-36.6) 04/15/21 17:20 ABG pH 7.531 (7.320-7.450) H 05/03/21 03:57 POC ABG pCO2 31.0 mmHg (32.0-48.0) L 05/03/21 03:57 POC ABG pO2 64.3 mmHg (83-108) L 05/03/21 03:57 POC ABG HCO3 25.4 05/03/21 03:57 ABG O2 Saturation 93.5 (0-100) 05/03/21 03:57 POC ABG Base Excess 2.9 05/03/21 03:57 ABG Hemoglobin 9.0 (12.0-17.5) L 05/03/21 03:57 ABG Oxyhemoglobin 92.6 (94-98) L 05/03/21 03:57 ABG Methemoglobin 0.3 (0.0-1.5) 05/03/21 03:57 ABG Sodium 145.7 mmol/L (136.0-145.0) H 05/03/21 03:57 ABG Potassium 4.1 mmol/L (3.40-4.50) 05/03/21 03:57 ABG Chloride 112.0 mmol/L (98-107) H 05/03/21 03:57 ABG Glucose 202 mg/dL (65-95) H 05/03/21 03:57 Carboxyhemoglobin 0.7 (0.5-1.5) 05/03/21 03:57 FiO2 % 30.0 05/03/21 03:57 Sodium 147 mmol/L (137-145) H 05/03/21 05:14 Potassium 4.2 mmol/L (3.6-5.0) 05/03/21 05:14 Chloride 109.7 mmol/L (98-107) H 05/03/21 05:14 Carbon Dioxide 27 mmol/L (22-30) 05/03/21 05:14 Anion Gap 15 mmol/L 05/03/21 05:14 BUN 121 mg/dL (7-17) H 05/03/21 05:14 Creatinine 3.1 mg/dL (0.6-1.2) H 05/03/21 05:14 Estimated GFR 17 ml/min 05/03/21 05:14 BUN/Creatinine Ratio 39 % 05/03/21 05:14 Glucose 190 mg/dL (65-100) H 05/03/21 05:14 POC Glucose 202 mg/dL (70-105) H 05/03/21 11:10 Lactic Acid 1.10 mmol/L (0.7-2.0) 04/26/21 09:30 Calcium 9.1 mg/dL (8.4-10.2) 05/03/21 05:14 Phosphorus 2.60 mg/dL (2.5-4.5) 04/22/21 08:00 Magnesium 2.10 mg/dL (1.7-2.3) 04/23/21 07:02 Total Bilirubin 0.30 mg/dL (0.1-1.2) 04/28/21 04:13 Direct Bilirubin < 0.2 mg/dL (0-0.2) 04/28/21 04:13 Indirect Bilirubin 0.1 mg/dL 04/28/21 04:13 AST 61 units/L (5-40) H 04/28/21 04:13 ALT 64 units/L (7-56) H 04/28/21 04:13 Alkaline Phosphatase 95 units/L (35-129) 04/28/21 04:13 Ammonia 46.0 umol/L (25-60) 04/15/21 17:20 Total Creatine Kinase 427 units/L (30-135) H 04/18/21 05:34 CK-MB (CK-2) 9.1 ng/mL (0.0-4.0) H 04/17/21 15:35 CK-MB (CK-2) Rel Index 1.4 (0-4) 04/17/21 15:35 Troponin T 0.065 ng/mL (0.00-0.029) H 04/20/21 03:32 NT-Pro-B Natriuret Pep 697.9 pg/mL (0-900) 04/15/21 17:20 Total Protein 6.2 g/dL (6.3-8.2) L 04/28/21 04:13 Albumin 2.6 g/dL (3.9-5) L 04/28/21 04:13 Albumin/Globulin Ratio 0.7 % 04/28/21 04:13 Triglycerides 103 mg/dL (2-149) 04/17/21 05:04 Cholesterol 122 mg/dL (50-199) 04/17/21 05:04 LDL Cholesterol Direct 55 mg/dL (50-130) 04/17/21 05:04 HDL Cholesterol 61 mg/dL (40-59) H 04/17/21 05:04 Cholesterol/HDL Ratio 2.00 % 04/17/21 05:04 Procalcitonin 0.20 ng/mL (<0.15) 04/16/21 19:01 TSH 14.190 mlU/mL (0.270-4.200) H 04/15/21 17:20 Thyroxine (T4) 4.1 ug/dL (4.0-12.0) 04/16/21 19:01 Free T3 Index 1.1 pg/mL (2.3-4.2) L 04/16/21 19:01 Arterial Blood Glucose 202 mg/dL (65-95) H 05/03/21 03:57 Arterial Blood Ionized Calcium 5.0 mg/dL (4.6-5.3) 05/03/21 03:57 Urine Color Yellow (Yellow) 04/30/21 17:45 Urine Turbidity Cloudy (Clear) 04/30/21 17:45 Urine pH 5.0 (5.0-7.0) 04/30/21 17:45 Ur Specific [place] 1.016 (1.003-1.030) 04/30/21 17:45 Urine Protein 100 mg/dl mg/dL (Negative) 04/30/21 17:45 Urine Glucose (UA) Neg mg/dL (Negative) 04/30/21 17:45 Urine Ketones Neg mg/dL (Negative) 04/30/21 17:45 Urine Blood Mod (Negative) 04/30/21 17:45 Urine Nitrite Neg (Negative) 04/30/21 17:45 Urine Bilirubin Neg (Negative) 04/30/21 17:45 Urine Urobilinogen < 2.0 mg/dL (<2.0) 04/30/21 17:45 Ur Leukocyte Esterase Mod (Negative) 04/30/21 17:45 Urine WBC (Auto) 48.0 /HPF (0.0-6.0) H 04/30/21 17:45 Urine RBC (Auto) 103.0 /HPF (0.0-6.0) 04/30/21 17:45 U Epithel Cells (Auto) < 1.0 /HPF (0-13.0) 04/16/21 00:09 Urine Bacteria (Auto) 1+ /HPF (Negative) 04/16/21 00:09 Urine Mucus Few /HPF 04/30/21 17:45 Urine Yeast (Budding) 3+ /HPF 04/30/21 17:45 Urine Creatinine 24.4 mg/dL (0.1-20.0) H 04/16/21 00:12 Urine Sodium 97 mmol/L 04/16/21 00:12 Random Vancomycin 15.5 ug/mL (0-40.0) 04/27/21 07:52 Salicylates 4.1 mg/dL (2.8-20.0) 04/15/21 17:20 Acetaminophen 5.0 ug/mL (10.0-30.0) L 04/15/21 17:20 Plasma/Serum Alcohol 0.02 % (0-0.07) 04/15/21 17:20 Coronavirus (PCR) Negative (Negative) 04/16/21 Unknown Microbiology: Microbiology 04/30/21 16:07 Peripheral/Venous Blood Culture - Preliminary NO GROWTH AFTER 48 HOURS 04/30/21 16:07 Peripheral/Venous Blood Culture - Preliminary NO GROWTH AFTER 48 HOURS 04/30/21 17:45 Urine,Clean Catch Urine Culture - Final Earline Albicans Kerr/IV: Voiding Method External Female Catheter Active Medications - Current Medications Current Medications: Generic Name Dose Route Start Last Admin Trade Name Freq PRN Reason Stop Dose Admin Acetaminophen 650 mg 04/15/21 19:11 04/30/21 20:14 Acetaminophen 325 Mg Tab PO 650 mg Q6H PRN Administration Pain MILD(1-3)/Fever >100.5/SEXTON Albuterol/Ipratropium 1 ampul 04/24/21 14:00 05/03/21 07:11 Ipratropium/Albuterol Sulfate 3 Ml Ampul.Neb IH 1 ampul Q6HRT WOLFGANG Administration Amlodipine Besylate 10 mg 04/25/21 10:00 05/03/21 09:51 Amlodipine 10 Mg Tab PO 10 mg DAILY WOLFGANG Administration Lipase/Protease/Amylase 1 each 04/16/21 12:52 Lipase 10,500/Protease 25,000/Amylase 43,750 (Units) Dr Simpson FEEDTUBE PRN PRN For Clogged Feeding Tube Aspirin 81 mg 04/25/21 10:00 05/03/21 09:50 Aspirin 81 Mg Tab Chew PO 81 mg QDAY WOLFGANG Administration Bisacodyl 10 mg 04/17/21 11:01 05/03/21 09:50 Bisacodyl 10 Mg Rect Supp OK 10 mg QDAY PRN Administration Constipation Brimonidine Tartrate 1 drops 04/17/21 22:00 05/03/21 09:53 Brimonidine 0.15% Ophth Soln OU 1 drops BID WOLFGANG Administration Docusate Sodium 100 mg 04/29/21 15:00 05/03/21 09:50 Docusate Sodium 100 Mg/10 Ml Oral Liqd PO 100 mg BID WOLFGANG Administration Epinephrine 0.5 ml 04/21/21 12:56 Epinephrine Racemic 2.25% 0.5ml Nebu IH Q4HRT PRN Shortness Of Breath Famotidine 20 mg 04/17/21 10:00 05/03/21 09:50 Famotidine 20 Mg Tab PO 20 mg DAILY WOLFGANG Administration Fentanyl 50 mcg 04/24/21 13:03 Fentanyl 100 Mcg/2 Ml Inj IV Q10MIN PRN ANALGESIA Heparin Sodium (Porcine) 5,000 unit 04/15/21 22:00 05/03/21 09:51 Heparin 5,000 Unit/1 Ml Vial SUB-Q 5,000 unit Q12HR WOLFGANG Administration Hydralazine HCl 10 mg 04/16/21 18:00 04/24/21 05:25 Hydralazine 20 Mg/1 Ml Inj IV 10 mg Q4HR PRN Administration Hypertension Hydralazine HCl 50 mg 05/03/21 14:00 05/03/21 14:48 Hydralazine 25 Mg Tab PO 50 mg Q8HR WOLFGANG Administration Hydrophilic Ointment 1 applic 04/15/21 17:24 Lip Therapy Vaseline TP Q2HR PRN Dry Lips Fentanyl Citrate 2,000 mcg in 100 mls @ 4.765 mls/hr 04/24/21 14:00 04/25/21 09:15 Fentanyl Drip Premix IV 0 mcg/kg/hr TITR WOLFGANG 0 mls/hr Titration Protocol 1 MCG/KG/HR Propofol 1,000 mg in 100 mls @ 2.859 mls/hr 04/24/21 14:00 04/25/21 09:10 Diprivan 10 Mg/Ml IV 0 mcg/kg/min TITR WOLFGANG 0 mls/hr Titration Protocol 5 MCG/KG/MIN Metronidazole 500 mg in 100 mls @ 100 mls/hr 04/30/21 12:00 05/03/21 13:01 Flagyl 500 Mg/100 Ml IV 05/05/21 04:59 100 mls/hr Q8H WOLFGANG Administration Protocol Cefepime HCl 2 gm in 100 mls @ 200 mls/hr 05/03/21 18:00 Cefepime/Ns 2 Gm/100 Ml IV 05/05/21 18:29 Q24H WOLFGANG Protocol Sodium Chloride 1,000 mls @ 75 mls/hr 05/03/21 14:00 05/03/21 14:50 Nacl 0.45% 1000 Ml IV 05/05/21 03:19 75 mls/hr DIRECT WOLFGANG Administration Insulin Glargine 52 units 05/04/21 22:00 Insulin Glargine 100 Units/Ml SUB-Q QHS WOLFGANG Insulin Human Lispro 0 unit 04/16/21 15:00 05/03/21 13:01 Insulin Lispro 100 Unit/Ml SUB-Q 4 unit Q6HR WOLFGANG Administration Protocol Latanoprost 1 drops 04/17/21 18:00 05/02/21 18:27 Latanoprost 0.005% Ophth Soln 2.5 Ml OU 1 drops QPM WOLFGANG Administration Levothyroxine Sodium 25 mcg 04/19/21 06:00 05/03/21 06:05 Levothyroxine 25 Mcg Tab PO 25 mcg DAILY@0600 WOLFGANG Administration Metoprolol Tartrate 25 mg 04/19/21 10:00 05/03/21 09:53 Metoprolol Tartrate 25 Mg Tab PO 25 mg BID WOLFGANG Administration Multi-Ingred Cream/Lotion/Oil/Oint 1 applic 04/15/21 17:24 05/02/21 09:06 Mineral Oil/Petrolatum, White Ophth Oint 3.5 Gm OU 1 applic Q4HR PRN Administration Dry Eye(s) Pravastatin Sodium 20 mg 04/19/21 22:00 05/02/21 21:52 Pravastatin 20 Mg Tab PO 20 mg QHS WOLFGANG Administration Scopolamine 1 each 04/20/21 18:00 05/02/21 09:14 Scopolamine Transdermal Patch 72 Hr TD 1 each Q3D WOLFGANG Administration Simple Syrup 15 ml 04/16/21 12:52 Simple Syrup 15 Ml FEEDTUBE PRN PRN Hypoglycemia Simple Syrup 30 ml 04/16/21 12:52 Simple Syrup 15 Ml FEEDTUBE PRN PRN Hypoglycemia Sodium Bicarbonate 325 mg 04/16/21 12:52 Sodium Bicarbonate 325 Mg Tab FEEDTUBE PRN PRN For Clogged Feeding Tube Sodium Chloride 10 ml 04/15/21 22:00 05/03/21 09:54 Sodium Chloride 0.9% 10 Ml Flush Syringe IV 10 ml BID WOLFGANG Administration Sodium Chloride 10 ml 04/15/21 19:11 04/24/21 05:27 Sodium Chloride 0.9% 10 Ml Flush Syringe IV 10 ml PRN PRN Administration LINE FLUSH Tamsulosin HCl 0.4 mg 04/25/21 14:00 05/03/21 09:50 Tamsulosin 0.4 Mg Cap PO 0.4 mg QDAY WOLFGANG Administration Timolol Maleate 1 drops 04/19/21 10:00 05/03/21 09:52 Timolol 0.5% Ophth Soln 5 Ml OU 1 drops QDAY WOLFGANG Administration Nutrition/Malnutrition Assess - Dietary Evaluation Nutrition/Malnutrition Findings: Nutrition Notes Start: 04/16/21 12: 31 Freq: Status: Active Protocol: Document 04/30/21 09:36 LP (Rec: 04/30/21 09:39 LP [id number]) Nutrition Notes Initial or Follow up Reassessment Current Diagnosis Acute Kidney Injury,Coronary Artery Disease,Diabetes, Hypertension Other Pertinent Diagnosis UTI, acute metabolic encephalopathy Current Diet Glucerna 1.2 at 50ml/hr Labs/Tests BUN 118 Cr 3.3 BG 263 Pertinent Medications Reviewed Height 5 ft 6 in Weight 93 kg [place] Body Weight (kg) 59.09 BMI 33.0 Weight Status Obese Subjective/Other Information Pt tolerating TF at goal rate. Pt on vent. Percent of energy/protein needs met: 100% energy 61% pro Burn Absent Trauma Absent Difficulty In Swallowing Current % PO Negligible Minimum of two criteria No physical signs of malnutrition #1 Nutrition Diagnosis Inadequate oral intake Diagnosis Progress(for reassessment Continues documentation) Is patient on ventilator? Yes Is Patient Ambulatory and/or Out of Bed No REE-([place]-confined to bed) 1700.760 Kcal/Kg value to use for calculation 15 Approximate Energy Requirements Using 1395 kcal/Kg Calculation Used for Recommendations Kcal/kg Additional Notes Pro needs >2g/kg IBW: >118g/ day Fluid needs 1ml/kcal Nutrition Intervention Change Diet Order: TF Nutrition Support: Continue Glucerna 1.2 at 50ml/ hr with 50ml water flush q4h. Kcal 1,440 Protein (gm) 72 Fluid (mL) 966 Goal #1 TF tolerance Goal #2 TF to meet energy and pro needs as best possible Anticipated Discharge Needs: unable to determine at this time Follow-Up By: 05/07/21 Additional Comments Follow for stable TF <SONI DUTTA - Last Filed: 05/03/21 17:50> History Interval history: This is a 80-year-old female with HTN, DM, [place], breast CA s/p double mastectomy, TIA who presented with hypoglycemia, AMS who was admitted with SIRS, symptomatic bradycardia, acute metabolic encephalopathy, acute hypoxic respiratory failure, elevated TSH, hyperglycemia, hyponatremia, hypokalemia, ROJELIO and rhabdomyolysis. Acute hypoxic respiratory failure (extubated 04/20)- Re-intubated secondary to Stridor and paradoxical breathing. I saw and evaluated the patient and discussed with Nurse Practitioner. I agree with the findings and the plan of care as documented in the Nurse Practitioner's note. Hospitalist Physical - Constitutional Vitals: Temp Pulse Resp BP Pulse Ox 98 F 67 18 114/45 98 05/03/21 16:08 05/03/21 16:41 05/03/21 16:28 05/03/21 16:41 05/03/21 16:41 HEART Score - HEART Score Troponin: Troponin T 0.065 ng/mL (0.00-0.029) H 04/20/21 03:32 Results - Labs CBC & Chem 7: 05/01/21 07:11 05/03/21 05:14 Labs: Laboratory Last Values WBC 12.3 K/mm3 (4.5-11.0) H 05/01/21 07:11 RBC 2.83 M/mm3 (3.65-5.03) L 05/01/21 07:11 Hgb 8.8 gm/dl (10.1-14.3) L 05/01/21 07:11 Hct 27.3 % (30.3-42.9) L 05/01/21 07:11 MCV 96 fl (79-97) 05/01/21 07:11 MCH 31 pg (28-32) 05/01/21 07:11 MCHC 32 % (30-34) 05/01/21 07:11 RDW 15.2 % (13.2-15.2) 05/01/21 07:11 Plt Count 298 K/mm3 (140-440) 05/01/21 07:11 Lymph % (Auto) 12.8 % (13.4-35.0) L 04/15/21 17:20 [place] % (Auto) 4.1 % (0.0-7.3) 04/15/21 17:20 Eos % (Auto) 0.3 % (0.0-4.3) 04/15/21 17:20 Baso % (Auto) 0.4 % (0.0-1.8) 04/15/21 17:20 Lymph # (Auto) 1.4 K/mm3 (1.2-5.4) 04/15/21 17:20 [place] # (Auto) 0.5 K/mm3 (0.0-0.8) 04/15/21 17:20 Eos # (Auto) 0.0 K/mm3 (0.0-0.4) 04/15/21 17:20 Baso # (Auto) 0.0 K/mm3 (0.0-0.1) 04/15/21 17:20 Add Manual Diff Complete 05/01/21 07:11 Total Counted 100 05/01/21 07:11 Seg Neutrophils % 82.4 % (40.0-70.0) H 04/15/21 17:20 Seg Neuts % (Manual) 80.0 % (40.0-70.0) H 05/01/21 07:11 Band Neutrophils % 7.0 % 05/01/21 07:11 Lymphocytes % (Manual) 5.0 % (13.4-35.0) L 05/01/21 07:11 Monocytes % (Manual) 6.0 % (0.0-7.3) 05/01/21 07:11 Eosinophils % (Manual) 1.0 % (0.0-4.3) 05/01/21 07:11 Metamyelocytes % 1.0 % 05/01/21 07:11 Nucleated RBC % Not Reportable 05/01/21 07:11 Seg Neutrophils # 9.3 K/mm3 (1.8-7.7) H 04/15/21 17:20 Seg Neutrophils # Man 9.8 K/mm3 (1.8-7.7) H 05/01/21 07:11 Band Neutrophils # 0.9 K/mm3 05/01/21 07:11 Lymphocytes # (Manual) 0.6 K/mm3 (1.2-5.4) L 05/01/21 07:11 Abs React Lymphs (Man) 0.0 K/mm3 05/01/21 07:11 Monocytes # (Manual) 0.7 K/mm3 (0.0-0.8) 05/01/21 07:11 Eosinophils # (Manual) 0.1 K/mm3 (0.0-0.4) 05/01/21 07:11 Basophils # (Manual) 0.0 K/mm3 (0.0-0.1) 05/01/21 07:11 Metamyelocytes # 0.1 K/mm3 05/01/21 07:11 Myelocytes # 0.0 K/mm3 05/01/21 07:11 Promyelocytes # 0.0 K/mm3 05/01/21 07:11 Blast Cells # 0.0 K/mm3 05/01/21 07:11 WBC Morphology Not Reportable 05/01/21 07:11 Hypersegmented Neuts Not Reportable 05/01/21 07:11 Hyposegmented Neuts Not Reportable 05/01/21 07:11 Hypogranular Neuts Not Reportable 05/01/21 07:11 Smudge Cells Not Reportable 05/01/21 07:11 Toxic Granulation Not Reportable 05/01/21 07:11 Toxic Vacuolation Not Reportable 05/01/21 07:11 Dohle Bodies Not Reportable 05/01/21 07:11 Pelger-Huet Anomaly Not Reportable 05/01/21 07:11 Peterson Rods Not Reportable 05/01/21 07:11 Platelet Estimate Consistent w auto 05/01/21 07:11 Clumped Platelets Not Reportable 05/01/21 07:11 Plt Clumps, EDTA Not Reportable 05/01/21 07:11 Large Platelets Not Reportable 05/01/21 07:11 Giant Platelets Not Reportable 05/01/21 07:11 Platelet Satelliting Not Reportable 05/01/21 07:11 Plt Morphology Comment Not Reportable 05/01/21 07:11 RBC Morphology Normal 05/01/21 07:11 Dimorphic RBCs Not Reportable 05/01/21 07:11 Polychromasia Not Reportable 05/01/21 07:11 Hypochromasia Not Reportable 05/01/21 07:11 Poikilocytosis Not Reportable 05/01/21 07:11 Anisocytosis Not Reportable 05/01/21 07:11 Microcytosis Not Reportable 05/01/21 07:11 Macrocytosis Not Reportable 05/01/21 07:11 Spherocytes Not Reportable 05/01/21 07:11 Pappenheimer Bodies Not Reportable 05/01/21 07:11 Sickle Cells Not Reportable 05/01/21 07:11 Target Cells Not Reportable 05/01/21 07:11 Tear Drop Cells Not Reportable 05/01/21 07:11 Ovalocytes Not Reportable 05/01/21 07:11 Helmet Cells Not Reportable 05/01/21 07:[address] [place] Bodies Not Reportable 05/01/21 07:11 [place] Rings Not Reportable 05/01/21 07:11 Theo Cells Not Reportable 05/01/21 07:11 Bite Cells Not Reportable 05/01/21 07:11 Crenated Cell Not Reportable 05/01/21 07:11 Elliptocytes Not Reportable 05/01/21 07:11 Acanthocytes (Spur) Not Reportable 05/01/21 07:11 Rouleaux Not Reportable 05/01/21 07:11 Hemoglobin C Crystals Not Reportable 05/01/21 07:11 Schistocytes Not Reportable 05/01/21 07:11 Malaria parasites Not Reportable 05/01/21 07:11 James Bodies Not Reportable 05/01/21 07:11 Hem Pathologist Commnt No 05/01/21 07:11 PT 12.2 Sec. (12.2-14.9) 04/15/21 17:20 INR 0.91 (0.87-1.13) 04/15/21 17:20 APTT 31.8 Sec. (24.2-36.6) 04/15/21 17:20 ABG pH 7.531 (7.320-7.450) H 05/03/21 03:57 POC ABG pCO2 31.0 mmHg (32.0-48.0) L 05/03/21 03:57 POC ABG pO2 64.3 mmHg (83-108) L 05/03/21 03:57 POC ABG HCO3 25.4 05/03/21 03:57 ABG O2 Saturation 93.5 (0-100) 05/03/21 03:57 POC ABG Base Excess 2.9 05/03/21 03:57 ABG Hemoglobin 9.0 (12.0-17.5) L 05/03/21 03:57 ABG Oxyhemoglobin 92.6 (94-98) L 05/03/21 03:57 ABG Methemoglobin 0.3 (0.0-1.5) 05/03/21 03:57 ABG Sodium 145.7 mmol/L (136.0-145.0) H 05/03/21 03:57 ABG Potassium 4.1 mmol/L (3.40-4.50) 05/03/21 03:57 ABG Chloride 112.0 mmol/L (98-107) H 05/03/21 03:57 ABG Glucose 202 mg/dL (65-95) H 05/03/21 03:57 Carboxyhemoglobin 0.7 (0.5-1.5) 05/03/21 03:57 FiO2 % 30.0 05/03/21 03:57 Sodium 147 mmol/L (137-145) H 05/03/21 05:14 Potassium 4.2 mmol/L (3.6-5.0) 05/03/21 05:14 Chloride 109.7 mmol/L (98-107) H 05/03/21 05:14 Carbon Dioxide 27 mmol/L (22-30) 05/03/21 05:14 Anion Gap 15 mmol/L 05/03/21 05:14 BUN 121 mg/dL (7-17) H 05/03/21 05:14 Creatinine 3.1 mg/dL (0.6-1.2) H 05/03/21 05:14 Estimated GFR 17 ml/min 05/03/21 05:14 BUN/Creatinine Ratio 39 % 05/03/21 05:14 Glucose 190 mg/dL (65-100) H 05/03/21 05:14 POC Glucose 202 mg/dL (70-105) H 05/03/21 11:10 Lactic Acid 1.10 mmol/L (0.7-2.0) 04/26/21 09:30 Calcium 9.1 mg/dL (8.4-10.2) 05/03/21 05:14 Phosphorus 2.60 mg/dL (2.5-4.5) 04/22/21 08:00 Magnesium 2.10 mg/dL (1.7-2.3) 04/23/21 07:02 Total Bilirubin 0.30 mg/dL (0.1-1.2) 04/28/21 04:13 Direct Bilirubin < 0.2 mg/dL (0-0.2) 04/28/21 04:13 Indirect Bilirubin 0.1 mg/dL 04/28/21 04:13 AST 61 units/L (5-40) H 04/28/21 04:13 ALT 64 units/L (7-56) H 04/28/21 04:13 Alkaline Phosphatase 95 units/L (35-129) 04/28/21 04:13 Ammonia 46.0 umol/L (25-60) 04/15/21 17:20 Total Creatine Kinase 427 units/L (30-135) H 04/18/21 05:34 CK-MB (CK-2) 9.1 ng/mL (0.0-4.0) H 04/17/21 15:35 CK-MB (CK-2) Rel Index 1.4 (0-4) 04/17/21 15:35 Troponin T 0.065 ng/mL (0.00-0.029) H 04/20/21 03:32 NT-Pro-B Natriuret Pep 697.9 pg/mL (0-900) 04/15/21 17:20 Total Protein 6.2 g/dL (6.3-8.2) L 04/28/21 04:13 Albumin 2.6 g/dL (3.9-5) L 04/28/21 04:13 Albumin/Globulin Ratio 0.7 % 04/28/21 04:13 Triglycerides 103 mg/dL (2-149) 04/17/21 05:04 Cholesterol 122 mg/dL (50-199) 04/17/21 05:04 LDL Cholesterol Direct 55 mg/dL (50-130) 04/17/21 05:04 HDL Cholesterol 61 mg/dL (40-59) H 04/17/21 05:04 Cholesterol/HDL Ratio 2.00 % 04/17/21 05:04 Procalcitonin 0.20 ng/mL (<0.15) 04/16/21 19:01 TSH 14.190 mlU/mL (0.270-4.200) H 04/15/21 17:20 Thyroxine (T4) 4.1 ug/dL (4.0-12.0) 04/16/21 19:01 Free T3 Index 1.1 pg/mL (2.3-4.2) L 04/16/21 19:01 Arterial Blood Glucose 202 mg/dL (65-95) H 05/03/21 03:57 Arterial Blood Ionized Calcium 5.0 mg/dL (4.6-5.3) 05/03/21 03:57 Urine Color Yellow (Yellow) 04/30/21 17:45 Urine Turbidity Cloudy (Clear) 04/30/21 17:45 Urine pH 5.0 (5.0-7.0) 04/30/21 17:45 Ur Specific [place] 1.016 (1.003-1.030) 04/30/21 17:45 Urine Protein 100 mg/dl mg/dL (Negative) 04/30/21 17:45 Urine Glucose (UA) Neg mg/dL (Negative) 04/30/21 17:45 Urine Ketones Neg mg/dL (Negative) 04/30/21 17:45 Urine Blood Mod (Negative) 04/30/21 17:45 Urine Nitrite Neg (Negative) 04/30/21 17:45 Urine Bilirubin Neg (Negative) 04/30/21 17:45 Urine Urobilinogen < 2.0 mg/dL (<2.0) 04/30/21 17:45 Ur Leukocyte Esterase Mod (Negative) 04/30/21 17:45 Urine WBC (Auto) 48.0 /HPF (0.0-6.0) H 04/30/21 17:45 Urine RBC (Auto) 103.0 /HPF (0.0-6.0) 04/30/21 17:45 U Epithel Cells (Auto) < 1.0 /HPF (0-13.0) 04/16/21 00:09 Urine Bacteria (Auto) 1+ /HPF (Negative) 04/16/21 00:09 Urine Mucus Few /HPF 04/30/21 17:45 Urine Yeast (Budding) 3+ /HPF 04/30/21 17:45 Urine Creatinine 24.4 mg/dL (0.1-20.0) H 04/16/21 00:12 Urine Sodium 97 mmol/L 04/16/21 00:12 Random Vancomycin 15.5 ug/mL (0-40.0) 04/27/21 07:52 Salicylates 4.1 mg/dL (2.8-20.0) 04/15/21 17:20 Acetaminophen 5.0 ug/mL (10.0-30.0) L 04/15/21 17:20 Plasma/Serum Alcohol 0.02 % (0-0.07) 04/15/21 17:20 Coronavirus (PCR) Negative (Negative) 04/16/21 Unknown Microbiology: Microbiology 04/30/21 16:07 Peripheral/Venous Blood Culture - Preliminary NO GROWTH AFTER 72 HOURS 04/30/21 16:07 Peripheral/Venous Blood Culture - Preliminary NO GROWTH AFTER 72 HOURS Kerr/IV: Voiding Method External Female Catheter Active Medications - Current Medications Current Medications: Generic Name Dose Route Start Last Admin Trade Name Freq PRN Reason Stop Dose Admin Acetaminophen 650 mg 04/15/21 19:11 04/30/21 20:14 Acetaminophen 325 Mg Tab PO 650 mg Q6H PRN Administration Pain MILD(1-3)/Fever >100.5/SEXTON Albuterol/Ipratropium 1 ampul 04/24/21 14:00 05/03/21 16:28 Ipratropium/Albuterol Sulfate 3 Ml Ampul.Neb IH 1 ampul Q6HRT WOLFGANG Administration Amlodipine Besylate 10 mg 04/25/21 10:00 05/03/21 09:51 Amlodipine 10 Mg Tab PO 10 mg DAILY WOLFGANG Administration Lipase/Protease/Amylase 1 each 04/16/21 12:52 Lipase 10,500/Protease 25,000/Amylase 43,750 (Units) Dr Simpson FEEDTUBE PRN PRN For Clogged Feeding Tube Aspirin 81 mg 04/25/21 10:00 05/03/21 09:50 Aspirin 81 Mg Tab Chew PO 81 mg QDAY WOLFGANG Administration Bisacodyl 10 mg 04/17/21 11:01 05/03/21 09:50 Bisacodyl 10 Mg Rect Supp OK 10 mg QDAY PRN Administration Constipation Brimonidine Tartrate 1 drops 04/17/21 22:00 05/03/21 09:53 Brimonidine 0.15% Ophth Soln OU 1 drops BID WOLFGANG Administration Docusate Sodium 100 mg 04/29/21 15:00 05/03/21 09:50 Docusate Sodium 100 Mg/10 Ml Oral Liqd PO 100 mg BID WOLFGANG Administration Epinephrine 0.5 ml 04/21/21 12:56 Epinephrine Racemic 2.25% 0.5ml Nebu IH Q4HRT PRN Shortness Of Breath Famotidine 20 mg 04/17/21 10:00 05/03/21 09:50 Famotidine 20 Mg Tab PO 20 mg DAILY WOLFGANG Administration Fentanyl 50 mcg 04/24/21 13:03 Fentanyl 100 Mcg/2 Ml Inj IV Q10MIN PRN ANALGESIA Heparin Sodium (Porcine) 5,000 unit 04/15/21 22:00 05/03/21 09:51 Heparin 5,000 Unit/1 Ml Vial SUB-Q 5,000 unit Q12HR WOLFGANG Administration Hydralazine HCl 10 mg 04/16/21 18:00 04/24/21 05:25 Hydralazine 20 Mg/1 Ml Inj IV 10 mg Q4HR PRN Administration Hypertension Hydralazine HCl 50 mg 05/03/21 14:00 05/03/21 14:48 Hydralazine 25 Mg Tab PO 50 mg Q8HR WOLFGANG Administration Hydrophilic Ointment 1 applic 04/15/21 17:24 Lip Therapy Vaseline TP Q2HR PRN Dry Lips Fentanyl Citrate 2,000 mcg in 100 mls @ 4.765 mls/hr 04/24/21 14:00 04/25/21 09:15 Fentanyl Drip Premix IV 0 mcg/kg/hr TITR WOLFGANG 0 mls/hr Titration Protocol 1 MCG/KG/HR Propofol 1,000 mg in 100 mls @ 2.859 mls/hr 04/24/21 14:00 04/25/21 09:10 Diprivan 10 Mg/Ml IV 0 mcg/kg/min TITR WOLFGANG 0 mls/hr Titration Protocol 5 MCG/KG/MIN Metronidazole 500 mg in 100 mls @ 100 mls/hr 04/30/21 12:00 05/03/21 13:01 Flagyl 500 Mg/100 Ml IV 05/05/21 04:59 100 mls/hr Q8H WOLFGANG Administration Protocol Cefepime HCl 2 gm in 100 mls @ 200 mls/hr 05/03/21 18:00 Cefepime/Ns 2 Gm/100 Ml IV 05/05/21 18:29 Q24H WOLFGANG Protocol Sodium Chloride 1,000 mls @ 75 mls/hr 05/03/21 14:00 05/03/21 14:50 Nacl 0.45% 1000 Ml IV 05/05/21 03:19 75 mls/hr DIRECT WOLFGANG Administration Insulin Glargine 52 units 05/04/21 22:00 Insulin Glargine 100 Units/Ml SUB-Q QHS WOLFGANG Insulin Human Lispro 0 unit 04/16/21 15:00 05/03/21 13:01 Insulin Lispro 100 Unit/Ml SUB-Q 4 unit Q6HR WOLFGANG Administration Protocol Latanoprost 1 drops 04/17/21 18:00 05/02/21 18:27 Latanoprost 0.005% Ophth Soln 2.5 Ml OU 1 drops QPM WOLFGANG Administration Levothyroxine Sodium 25 mcg 04/19/21 06:00 05/03/21 06:05 Levothyroxine 25 Mcg Tab PO 25 mcg DAILY@0600 WOLFGANG Administration Metoprolol Tartrate 25 mg 04/19/21 10:00 05/03/21 09:53 Metoprolol Tartrate 25 Mg Tab PO 25 mg BID WOLFGANG Administration Multi-Ingred Cream/Lotion/Oil/Oint 1 applic 04/15/21 17:24 05/02/21 09:06 Mineral Oil/Petrolatum, White Ophth Oint 3.5 Gm OU 1 applic Q4HR PRN Administration Dry Eye(s) Pravastatin Sodium 20 mg 04/19/21 22:00 05/02/21 21:52 Pravastatin 20 Mg Tab PO 20 mg QHS WOLFGANG Administration Scopolamine 1 each 04/20/21 18:00 05/02/21 09:14 Scopolamine Transdermal Patch 72 Hr TD 1 each Q3D WOLFGANG Administration Simple Syrup 15 ml 04/16/21 12:52 Simple Syrup 15 Ml FEEDTUBE PRN PRN Hypoglycemia Simple Syrup 30 ml 04/16/21 12:52 Simple Syrup 15 Ml FEEDTUBE PRN PRN Hypoglycemia Sodium Bicarbonate 325 mg 04/16/21 12:52 Sodium Bicarbonate 325 Mg Tab FEEDTUBE PRN PRN For Clogged Feeding Tube Sodium Chloride 10 ml 04/15/21 22:00 05/03/21 09:54 Sodium Chloride 0.9% 10 Ml Flush Syringe IV 10 ml BID WOLFGANG Administration Sodium Chloride 10 ml 04/15/21 19:11 04/24/21 05:27 Sodium Chloride 0.9% 10 Ml Flush Syringe IV 10 ml PRN PRN Administration LINE FLUSH Tamsulosin HCl 0.4 mg 04/25/21 14:00 05/03/21 09:50 Tamsulosin 0.4 Mg Cap PO 0.4 mg QDAY WOLFGANG Administration Timolol Maleate 1 drops 04/19/21 10:00 05/03/21 09:52 Timolol 0.5% Ophth Soln 5 Ml OU 1 drops QDAY WOLFGANG Administration Nutrition/Malnutrition Assess - Dietary Evaluation Nutrition/Malnutrition Findings: Nutrition Notes Start: 04/16/21 12:31 Freq: Status: Active Protocol: Document 04/30/21 09:36 LP (Rec: 04/30/21 09:39 LP [id number]) Nutrition Notes Initial or Follow up Reassessment Current Diagnosis Acute Kidney Injury,Coronary Artery Disease,Diabetes, Hypertension Other Pertinent Diagnosis UTI, acute metabolic encephalopathy Current Diet Glucerna 1.2 at 50ml/hr Labs/Tests BUN 118 Cr 3.3 BG 263 Pertinent Medications Reviewed Height 5 ft 6 in Weight 93 kg [place] Body Weight (kg) 59.09 BMI 33.0 Weight Status Obese Subjective/Other Information Pt tolerating TF at goal rate. Pt on vent. Percent of energy/protein needs met: 100% energy 61% pro Burn Absent Trauma Absent Difficulty In Swallowing Current % PO Negligible Minimum of two criteria No physical signs of malnutrition #1 Nutrition Diagnosis Inadequate oral intake Diagnosis Progress(for reassessment Continues documentation) Is patient on ventilator? Yes Is Patient Ambulatory and/or Out of Bed No [facility] 1700.760 Kcal/Kg value to use for calculation 15 Approximate Energy Requirements Using 1395 kcal/Kg Calculation Used for Recommendations Kcal/kg Additional Notes Pro needs >2g/kg IBW: >118g/ day Fluid needs 1ml/kcal Nutrition Intervention Change Diet Order: TF Nutrition Support: Continue Glucerna 1.2 at 50ml/ hr with 50ml water flush q4h. Kcal 1,440 Protein (gm) 72 Fluid (mL) 966 Goal #1 TF tolerance Goal #2 TF to meet energy and pro needs as best possible Anticipated Discharge Needs: unable to determine at this time Follow-Up By: 05/07/21 Additional Comments Follow for stable TF
--- NOTE | 2021-05-03 17:28 | Event Note ---
I spoke to the patient's nephew Carlos Romero at [phone]. I informed him her current status and still hoping for the trach to be placed early next week. He was grateful for the update.
[2021-05-03] MEDS: CEFEPIME/NS 2 GM/100 ML 2 GM/100 ML BAG IV SCH (18:02)
[2021-05-03] MEDS: LATANOPROST 0.005% OPHTH SOLN 2.5 ML OU SCH (18:03)
[2021-05-03] MEDS: PRAVASTATIN 20 MG TAB PO SCH (21:37)
[2021-05-04] MEDS: INSULIN LISPRO 100 UNIT/ML SUB-Q SCH ×5 (00:19→23:23)
[2021-05-04] MEDS: IPRATROPIUM/ALBUTEROL SULFATE 3 ML AMPUL.NEB IH SCH ×4 (03:36→19:56)
[2021-05-04] MEDS: metroNIDAZOLE/NS 500 MG/100 ML 500 MG/100 ML BAG IV SCH ×3 (04:07→20:57)
[2021-05-04] MEDS: SODIUM CHLORIDE 0.45% 1000 ML 1,000 ML IV SCH (04:13)
[2021-05-04] MEDS: LEVOTHYROXINE 25 MCG TAB PO SCH (04:59)
[2021-05-04] MEDS: hydrALAZINE 25 MG TAB PO SCH ×3 (04:59→21:48)
[2021-05-04 05:34] LABS: Hematocrit 25.4 % (30.3-42.9); Hemoglobin 8.2 gm/dl (10.1-14.3); Mean Corpuscular HGB Conc 32 % (30-34); Mean Corpuscular Volume 98 fl (79-97); Platelet Count 321 K/mm3 (140-440); Red Blood Count 2.61 M/mm3 (3.65-5.03); Red Cell Distribution Width 15.3 % (13.2-15.2)
[2021-05-04 05:53] LABS: Calcium 8.8 mg/dL (8.4-10.2)
--- NOTE | 2021-05-04 08:41 | Progress Note ---
Assessment and Plan 1. Acute kidney injury: Vasomotor ROJELIO. ATN likely. Renal US negative for hydro. Baseline renal function is unknown. Monitor renal function. Non-oliguric. Creatinine level is improving. Renal prognosis is guarded. Avoid nephrotoxic agents. Meds dosage based on GFR. Monitor for [employer] needs. 2. FEN: Hypokalemia, improved, monitor. Hypernatremia, monitor. Monitor lytes and volume status. 3. Acute hypoxemic respiratory failure: Extubated, re-intubated 04/24. 4. Acute encephalopathy: Hypoglycemia. MRI brain negative. Seen by Neuro. 5. UTI: Pseudomonas and Earline. 6. Hypertension. 7. DM type 2. 8. Mild rhabdomyolysis. 9. Mildly complex R renal cyst. Subjective: Patient was seen and examined at the bedside. Examination: General appearance: well-developed, appears stated age, intubated on vent HEENT: BRUCE, atraumatic Neck: trachea midline Respiratory: Coarse breath sounds heard Heart: S1S2, no murmur Abdomen: soft, obese, bowel sounds heard, NT Integumentary: no obvious rash Neurologic: stuporous Ext: no edema noted Subjective Date of service: 05/04/21 Principal diagnosis: Ac. resp failure; AMS; Hypoglycemia; ROJELIO; Hyperkalemia; DM II Objective - Vital Signs Vital signs: Vital Signs - 12hr 05/03/21 05/03/21 05/03/21 21:00 21:37 21:38 Temperature Pulse Rate 70 68 68 Pulse Rate [ Bilateral] Pulse Rate [ From Monitor] Respiratory 19 Rate Respiratory Rate [Bilateral ] Blood Pressure 115/55 115/55 115/55 O2 Sat by Pulse 100 Oximetry 05/03/21 05/03/21 05/03/21 22:01 23:01 23:55 Temperature Pulse Rate 72 64 72 Pulse Rate [ Bilateral] Pulse Rate [ From Monitor] Respiratory 21 19 21 Rate Respiratory Rate [Bilateral ] Blood Pressure 128/83 120/35 120/35 O2 Sat by Pulse 100 100 100 Oximetry 05/03/21 05/04/21 05/04/21 23:59 00:00 00:01 Temperature 98.4 F Pulse Rate 71 69 71 Pulse Rate [ Bilateral] Pulse Rate [ From Monitor] Respiratory 18 Rate Respiratory Rate [Bilateral ] Blood Pressure 120/35 122/65 O2 Sat by Pulse 100 96 100 Oximetry 06/03/2105/04/21 05/04/21 01:00 02:01 03:01 Temperature Pulse Rate 71 70 67 Pulse Rate [ Bilateral] Pulse Rate [ From Monitor] Respiratory 16 15 17 Rate Respiratory Rate [Bilateral ] Blood Pressure 131/61 150/52 149/92 O2 Sat by Pulse 100 100 100 Oximetry 05/04/21 05/04/21 05/04/21 03:10 03:36 04:00 Temperature 98.6 F Pulse Rate 73 Pulse Rate [ 75 Bilateral] Pulse Rate [ From Monitor] Respiratory Rate Respiratory 15 Rate [Bilateral ] Blood Pressure O2 Sat by Pulse 96 Oximetry 05/04/21 05/04/21 05/04/21 04:01 04:27 04:59 Temperature Pulse Rate 68 68 74 Pulse Rate [ Bilateral] Pulse Rate [ From Monitor] Respiratory 13 Rate Respiratory Rate [Bilateral ] Blood Pressure 147/41 147/41 147/41 O2 Sat by Pulse 100 100 Oximetry 05/04/21 05/04/21 05/04/21 05:01 06:01 07:00 Temperature 98.1 F Pulse Rate 66 78 Pulse Rate [ Bilateral] Pulse Rate [ From Monitor] Respiratory 18 23 Rate Respiratory Rate [Bilateral ] Blood Pressure 138/72 138/72 O2 Sat by Pulse 99 100 Oximetry 05/04/21 05/04/21 05/04/21 07:01 07:28 08:01 Temperature Pulse Rate 79 75 78 Pulse Rate [ 77 Bilateral] Pulse Rate [ From Monitor] Respiratory 24 22 Rate Respiratory 18 Rate [Bilateral ] Blood Pressure 147/65 147/65 147/65 O2 Sat by Pulse 100 100 100 Oximetry 05/04/21 08:02 Temperature Pulse Rate 74 Pulse Rate [ Bilateral] Pulse Rate [ 74 From Monitor] Respiratory 25 H Rate Respiratory Rate [Bilateral ] Blood Pressure O2 Sat by Pulse 100 Oximetry - Lab 05/04/21 04:57 05/04/21 04:57 Most recent lab results ABG pH 7.531 (7.320-7.450) H 05/03/21 03:57 ABG O2 Saturation 93.5 (0-100) 05/03/21 03:57 Calcium 8.8 mg/dL (8.4-10.2) 05/04/21 04:57 Phosphorus 2.60 mg/dL (2.5-4.5) 04/22/21 08:00 Magnesium 2.10 mg/dL (1.7-2.3) 04/23/21 07:02 Urine Creatinine 24.4 mg/dL (0.1-20.0) H 04/16/21 00:12 Urine Sodium 97 mmol/L 04/16/21 00:12 Medications & Allergies - Medications Allergies/Adverse Reactions: Allergies No Known Allergies Allergy (Unverified 04/15/21 17:41) Home Medications: Home Medications Medication Instructions Recorded Confirmed Last Taken Type Betaxolol HCl [Betoptic S 0.25% 1 drop OU BID 04/16/21 04/16/21 Unknown History SUSP] Bimatoprost [Lumigan 0.01%] 1 drop OU QPM 04/16/21 04/16/21 Unknown History Brimonidine Tartrate [Brimonidine 5 ml OU BID 04/16/21 04/16/21 Unknown History Tartrate 0.2%] Furosemide [Lasix TAB] 40 mg PO QDAY 04/16/21 04/16/21 Unknown History Gabapentin [Neurontin] 300 mg PO Q8HR 04/16/21 04/16/21 Unknown History HYDROcodone/APAP 10-325 [Rutherford 1 each PO Q6HR PRN 04/16/21 04/16/21 Unknown History 10/325] Hydralazine HCl 50 mg PO Q4HR 04/16/21 04/16/21 Unknown History Insulin Aspart Prot/Insuln Asp 52 units SQ HS 04/16/21 04/16/21 Unknown History [Novolog Mix 70-30 Flexpen] Metoprolol [Lopressor] 25 mg PO BID 04/16/21 04/16/21 Unknown History Pravastatin [Pravachol] 20 mg PO QHS 04/16/21 04/16/21 Unknown History Promethazine [Phenergan] 25 mg PO Q6HR 04/16/21 04/16/21 Unknown History allopurinoL [Zyloprim] 150 mg PO QDAY 04/16/21 04/16/21 Unknown History Active Medications: Generic Name Dose Route Start Last Admin Trade Name Freq PRN Reason Stop Dose Admin Acetaminophen 650 mg 04/15/21 19:11 04/30/21 20:14 Acetaminophen 325 Mg Tab PO 650 mg Q6H PRN Administration Pain MILD(1-3)/Fever >100.5/SEXTON Albuterol/Ipratropium 1 ampul 04/24/21 14:00 05/04/21 07:28 Ipratropium/Albuterol Sulfate 3 Ml Ampul.Neb IH 1 ampul Q6HRT WOLFGANG Administration Amlodipine Besylate 10 mg 04/25/21 10:00 05/03/21 09:51 Amlodipine 10 Mg Tab PO 10 mg DAILY WOLFGANG Administration Lipase/Protease/Amylase 1 each 04/16/21 12:52 Lipase 10,500/Protease 25,000/Amylase 43,750 (Units) Dr Simpson FEEDTUBE PRN PRN For Clogged Feeding Tube Aspirin 81 mg 04/25/21 10:00 05/03/21 09:50 Aspirin 81 Mg Tab Chew PO 81 mg QDAY WOLFGANG Administration Bisacodyl 10 mg 04/17/21 11:01 05/03/21 09:50 Bisacodyl 10 Mg Rect Supp TN 10 mg QDAY PRN Administration Constipation Brimonidine Tartrate 1 drops 04/17/21 22:00 05/03/21 21:36 Brimonidine 0.15% Ophth Soln OU 1 drops BID WOLFGANG Administration Docusate Sodium 100 mg 04/29/21 15:00 05/03/21 21:37 Docusate Sodium 100 Mg/10 Ml Oral Liqd PO 100 mg BID WOLFGANG Administration Epinephrine 0.5 ml 04/21/21 12:56 Epinephrine Racemic 2.25% 0.5ml Nebu IH Q4HRT PRN Shortness Of Breath Famotidine 20 mg 04/17/21 10:00 05/03/21 09:50 Famotidine 20 Mg Tab PO 20 mg DAILY WOLFGANG Administration Fentanyl 50 mcg 04/24/21 13:03 Fentanyl 100 Mcg/2 Ml Inj IV Q10MIN PRN ANALGESIA Heparin Sodium (Porcine) 5,000 unit 04/15/21 22:00 05/03/21 21:37 Heparin 5,000 Unit/1 Ml Vial SUB-Q 5,000 unit Q12HR WOLFGANG Administration Hydralazine HCl 10 mg 04/16/21 18:00 04/24/21 05:25 Hydralazine 20 Mg/1 Ml Inj IV 10 mg Q4HR PRN Administration Hypertension Hydralazine HCl 50 mg 05/03/21 14:00 05/04/21 04:59 Hydralazine 25 Mg Tab PO 50 mg Q8HR WOLFGANG Administration Hydrophilic Ointment 1 applic 04/15/21 17:24 Lip Therapy Vaseline TP Q2HR PRN Dry Lips Fentanyl Citrate 2,000 mcg in 100 mls @ 4.765 mls/hr 04/24/21 14:00 04/25/21 09:15 Fentanyl Drip Premix IV 0 mcg/kg/hr TITR WOLFGANG 0 mls/hr Titration Protocol 1 MCG/KG/HR Propofol 1,000 mg in 100 mls @ 2.859 mls/hr 04/24/21 14:00 04/25/21 09:10 Diprivan 10 Mg/Ml IV 0 mcg/kg/min TITR WOLFGANG 0 mls/hr Titration Protocol 5 MCG/KG/MIN Metronidazole 500 mg in 100 mls @ 100 mls/hr 04/30/21 12:00 05/04/21 04:07 Flagyl 500 Mg/100 Ml IV 05/05/21 04:59 100 mls/hr Q8H WOLFGANG Administration Protocol Cefepime HCl 2 gm in 100 mls @ 200 mls/hr 05/03/21 18:00 05/03/21 18:02 Cefepime/Ns 2 Gm/100 Ml IV 05/05/21 18:29 200 mls/hr Q24H WOLFGANG Administration Protocol Sodium Chloride 1,000 mls @ 75 mls/hr 05/03/21 14:00 05/04/21 04:13 Nacl 0.45% 1000 Ml IV 05/05/21 03:19 75 mls/hr DIRECT WOLFGANG Administration Insulin Glargine 52 units 05/04/21 22:00 Insulin Glargine 100 Units/Ml SUB-Q QHS WOLFGANG Insulin Human Lispro 0 unit 04/16/21 15:00 05/04/21 05:40 Insulin Lispro 100 Unit/Ml SUB-Q 3 unit Q6HR WOLFGANG Administration Protocol Latanoprost 1 drops 04/17/21 18:00 05/03/21 18:03 Latanoprost 0.005% Ophth Soln 2.5 Ml OU 1 drops QPM WOLFGANG Administration Levothyroxine Sodium 25 mcg 04/19/21 06:00 05/04/21 04:59 Levothyroxine 25 Mcg Tab PO 25 mcg DAILY@0600 WOLFGANG Administration Metoprolol Tartrate 25 mg 04/19/21 10:00 05/03/21 21:37 Metoprolol Tartrate 25 Mg Tab PO Not Given BID WOLFGANG Multi-Ingred Cream/Lotion/Oil/Oint 1 applic 04/15/21 17:24 05/02/21 09:06 Mineral Oil/Petrolatum, White Ophth Oint 3.5 Gm OU 1 applic Q4HR PRN Administration Dry Eye(s) Pravastatin Sodium 20 mg 04/19/21 22:00 05/03/21 21:37 Pravastatin 20 Mg Tab PO 20 mg QHS WOLFGANG Administration Scopolamine 1 each 04/20/21 18:00 05/02/21 09:14 Scopolamine Transdermal Patch 72 Hr TD 1 each Q3D WOLFGANG Administration Simple Syrup 15 ml 04/16/21 12:52 Simple Syrup 15 Ml FEEDTUBE PRN PRN Hypoglycemia Simple Syrup 30 ml 04/16/21 12:52 Simple Syrup 15 Ml FEEDTUBE PRN PRN Hypoglycemia Sodium Bicarbonate 325 mg 04/16/21 12:52 Sodium Bicarbonate 325 Mg Tab FEEDTUBE PRN PRN For Clogged Feeding Tube Sodium Chloride 10 ml 04/15/21 22:00 05/03/21 21:38 Sodium Chloride 0.9% 10 Ml Flush Syringe IV 10 ml BID WOLFGANG Administration Sodium Chloride 10 ml 04/15/21 19:11 04/24/21 05:27 Sodium Chloride 0.9% 10 Ml Flush Syringe IV 10 ml PRN PRN Administration LINE FLUSH Tamsulosin HCl 0.4 mg 04/25/21 14:00 05/03/21 09:50 Tamsulosin 0.4 Mg Cap PO 0.4 mg QDAY WOLFGANG Administration Timolol Maleate 1 drops 04/19/21 10:00 05/03/21 09:52 Timolol 0.5% Ophth Soln 5 Ml OU 1 drops QDAY WOLFGANG Administration
[2021-05-04] MEDS: TIMOLOL 0.5% OPHTH SOLN 5 ML OU SCH (09:25)
[2021-05-04] MEDS: MINERAL OIL/PETROLATUM, WHITE OPHTH OINT 3.5 GM OU PRN (09:25)
[2021-05-04] MEDS: BRIMONIDINE 0.15% OPHTH SOLN OU SCH ×2 (09:25→22:44)
[2021-05-04] MEDS: FAMOTIDINE 20 MG TAB PO SCH (09:26)
[2021-05-04] MEDS: ASPIRIN 81 MG TAB CHEW PO SCH (09:26)
[2021-05-04] MEDS: METOPROLOL TARTRATE 25 MG TAB PO SCH ×2 (09:26→22:43)
[2021-05-04] MEDS: amLODIPine 10 MG TAB PO SCH (09:27)
[2021-05-04] MEDS: HEPARIN 5,000 UNIT/1 ML VIAL SUB-Q SCH ×2 (09:27→21:48)
[2021-05-04] MEDS: TAMSULOSIN 0.4 MG CAP PO SCH (09:27)
[2021-05-04] MEDS: DOCUSATE SODIUM 100 MG/10 ML ORAL LIQD PO SCH ×2 (09:31→21:48)
--- NOTE | 2021-05-04 10:05 | Event Note ---
Date: 05/04/21 Pt chart reviewed. No overall change in condition. Added for trach/PEG on Friday05/07/21 PM. Plavix held since 05/01/21. Procedure discussed with NOK last week and he gave verbal consent. Will obtain written consent in am with witness.
--- NOTE | 2021-05-04 12:04 | Progress Note ---
Assessment and Plan Cultures: 04/15/2021 blood culture: No growth 04/15/2021 sputum culture: Contaminated 04/16/2021 urine culture: Mixed nilesh 04/16/2021 tracheal aspirate culture: Usual respiratory nilesh 04/18/2021 urine culture: 10K-100 K Pseudomonas aeruginosa 04/18/2021 blood culture: No growth 04/24/2021 resp culture: usual resp nilesh 04/26/2021 blood culture: No growth COVID-19 PCR: Negative 04/30/2021 blood culture: No growth 04/30/2021 urine culture: Earline A/P: 80-year-old female with diabetes mellitus, coronary artery disease, hypertension, breast cancer status post mastectomy, TIA was admitted to the hospital on 04/16/2021 with altered mental status and hypoglycemia: #Sepsis: Etiology unclear. Prolonged mechanical ventilation and ICU stay. Ruled out bacteremia, UTI. Chest x-ray from today does not reveal any pne umonia. ? some leucocytosis related to steroid use from 04/21/2021 to 04/24/2021. #Acute respiratory failure: on the vent. #Acute encephalopathy: Metabolic likely. #UTI with Pseudomonas: Recently treated with IV cefepime. Candiduria does not need treatment. Kerr was already exchanged #ROJELIO: Renally dose antibiotics. Recs: -Continue IV Cefepime, Flagyl, stop tomorrow -awaiting trach -Candiduria does not need treatment. Kerr was already exchanged ID will sign off. Please call with questions. Cash Parks MD, FACP [facility] ([facility]) O: [phone] F: [phone] Subjective Date of service: 05/04/21 Principal diagnosis: Ac. resp failure; AMS; Hypoglycemia; ROJELIO; Hyperkalemia; DM II Interval history: Remains on the vent. No fever. Objective - Exam Narrative Exam: Physical Exam: Constitutional: sedated, intubated, on the vent Head, Ears, Nose: Normocephalic, atraumatic. External ears, nose normal Eyes: Conjunctivae/corneas clear. No icterus. No ptosis. Neck: intubated Oral: intubated Cardiovascular: S1, S2 + Respiratory: AE fair bilaterally and equal GI: Soft, bowel sounds + Musculoskeletal: No pedal edema, no cyanosis. Skin: No rash or abscess Hem/Lymphatic: No palpable cervical or supraclavicular nodes. No lymphangitis Psych: no agitation Neurological: sedated, intubated, on the vent, exam limited - Constitutional Vitals: Vital Signs Temp Pulse Resp BP Pulse Ox 98.0 F 62 25 H 142/101 100 05/04/21 11:44 05/04/21 11:24 05/04/21 08:02 05/04/21 11:24 05/04/21 11:24 Temperature -Last 24 Hours Temperature 98.0 F Temperature 98.1 F Temperature 98.6 F Temperature 98.4 F Temperature 98.8 F Temperature 98 F - Labs CBC & Chem 7: 05/04/21 04:57 05/04/21 04:57 Labs: Abnormal lab results 05/03/21 05/04/21 05/04/21 Range/Units 23:58 04:57 04:57 RBC 2.61 L (3.65-5.03) M/mm3 Hgb 8.2 L (10.1-14.3) gm/dl Hct 25.4 L (30.3-42.9) % MCV 98 H (79-97) fl RDW 15.3 H (13.2-15.2) % Sodium 147 H (137-145) mmol/L Chloride 111.0 H (98-107) mmol/L BUN 104 H (7-17) mg/dL Creatinine 2.8 H (0.6-1.2) mg/dL Glucose 179 H (65-100) mg/dL POC Glucose 131 H (70-105) mg/dL 05/04/21 Range/Units 05:19 RBC (3.65-5.03) M/mm3 Hgb (10.1-14.3) gm/dl Hct (30.3-42.9) % MCV (79-97) fl RDW (13.2-15.2) % Sodium (137-145) mmol/L Chloride (98-107) mmol/L BUN (7-17) mg/dL Creatinine (0.6-1.2) mg/dL Glucose (65-100) mg/dL POC Glucose 168 H (70-105) mg/dL
--- NOTE | 2021-05-04 13:45 | Progress Note ---
Assessment and Plan Acute respiratory failure, on mechanical ventilatory support. Acute toxic metabolic encephalopathy Hypoglycemia ROJELIO Hyperkalemia Rhabdomyolysis Possible seizure activity DM II HTN CAD Obesity H/O breast cancer H/O TIA Leukocytosis Elevated serum TSH, possible hypothyroidism - complete IV 1/2NS @ 75 ml's/hr X 2 liters re: Azotemia with hypernatremia - repeat BMP in am - continue free water flushes at 250 mls q4h - still awaiting tracheostomy (Plavix on hold; trach likely early next week) - continue care as below otherwise; - continue to wean supplemental oxygen for target O2 sat's > 90% acutely - VAP bundle addressed - continue lung protective strategies - continue bronchodilators with pulmonary hygiene per RT - continue Daily SAT and SBT assessment as tolerated - wean per pulmonary driven protocols otherwise - continue accuchecks with glycemic control per SSI (While critically ill target blood glucose of 140-180 mg/dL; avoid hypoglycemia) - sedation prn for target RASS 0 to -1 - avoid nephrotoxins, renally dose all medications - continue to avoid benzodiazepine's, reduce the possibility of delirium - complete AB's per ID rec's re: Cefepime and Flagyl - follow clinically trend fevers / WBC - prn analgesia per CPOT score - Maintenance of sleep-wake cycle, avoid delirium - continue enteral nutritional support at goal rate as tolerated - G.I. & VTE prophylaxis - PT/OT/ROM exercises - continue Flomax re: retention - continue mobility protocols for pressure ulcer prophylaxis - Monitor hemodynamics closely - continue other care per attending / other consultants - discharge planning ongoing concurrently .... Re-evaluate in am & prn CONDITION: CRITICAL PROGNOSIS: GUARDED CODE STATUS: FULL CODE The high probability of a clinically significant, sudden or life-threatening deterioration of the [respiratory, cardiovascular, GI & neurologic] system(s) required my full and direct attention, intervention and personal management. The aggregate critical care time was [31] minutes without overlap. Time includes spent on; [x] Data Review and interpretation [x] Patient assessment and monitoring of vital signs [x] Documentation [x] Medication orders and management Subjective Date of service: 05/04/21 Principal diagnosis: Ac. resp failure; AMS; Hypoglycemia; ROJELIO; Hyperkalemia; DM II Interval history: Patient is seen today for: Acute respiratory failure; AMS; Hypoglycemia; ROJELIO; Hyperkalemia; DM II; H/O breast cancer; Elevated serum TSH, possible hypothyroidism Seen and examined at bedside; 24hour events reviewed; nursing and respiratory care staff consulted; no adverse overnight events reported to me; resting peacefully in bed; remains on MVS; azotemia better with IV hydration tentatively; failed SBT today; no new issues otherwise Objective Vital Signs - 12hr 05/04/21 05/04/21 05/04/21 02:01 03:01 03:10 Temperature 98.6 F Pulse Rate 70 67 Pulse Rate [ Bilateral] Pulse Rate [ From Monitor] Respiratory 15 17 Rate Respiratory Rate [Bilateral ] Blood Pressure 150/52 149/92 O2 Sat by Pulse 100 100 Oximetry 05/04/21 05/04/21 05/04/21 03:36 04:00 04:01 Temperature Pulse Rate 73 68 Pulse Rate [ 75 Bilateral] Pulse Rate [ From Monitor] Respiratory 13 Rate Respiratory 15 Rate [Bilateral ] Blood Pressure 147/41 O2 Sat by Pulse 96 100 Oximetry 05/04/21 05/04/21 05/04/21 04:27 04:59 05:01 Temperature Pulse Rate 68 74 66 Pulse Rate [ Bilateral] Pulse Rate [ From Monitor] Respiratory 18 Rate Respiratory Rate [Bilateral ] Blood Pressure 147/41 147/41 138/72 O2 Sat by Pulse 100 99 Oximetry 05/04/21 05/04/21 05/04/21 06:01 07:00 07:01 Temperature 98.1 F Pulse Rate 78 79 Pulse Rate [ Bilateral] Pulse Rate [ From Monitor] Respiratory 23 24 Rate Respiratory Rate [Bilateral ] Blood Pressure 138/72 147/65 O2 Sat by Pulse 100 100 Oximetry 05/04/21 05/04/21 05/04/21 07:28 08:01 08:02 Temperature Pulse Rate 75 78 74 Pulse Rate [ 77 Bilateral] Pulse Rate [ 74 From Monitor] Respiratory 22 25 H Rate Respiratory 18 Rate [Bilateral ] Blood Pressure 147/65 147/65 O2 Sat by Pulse 100 100 100 Oximetry 05/04/21 05/04/21 05/04/21 09:26 09:27 11:24 Temperature Pulse Rate 79 81 62 Pulse Rate [ Bilateral] Pulse Rate [ From Monitor] Respiratory Rate Respiratory Rate [Bilateral ] Blood Pressure 136/61 142/101 O2 Sat by Pulse 100 Oximetry 05/04/21 11:44 Temperature 98.0 F Pulse Rate Pulse Rate [ Bilateral] Pulse Rate [ From Monitor] Respiratory Rate Respiratory Rate [Bilateral ] Blood Pressure O2 Sat by Pulse Oximetry Constitutional: appears uncomfortable, other (elderly obese female with mildly increased respiratory effort at rest on MVS) Eyes: non-icteric (ETT 24 cm RICARDO) ENT: oropharynx moist, other (ETT 24 cm RICARDO) Neck: supple, no lymphadenopathy, no JVD, other (large circumference) Effort: mildly labored Ascultation: Bilateral: diminished breath sounds, rhonchi Percussion: Bilateral: not dull Cardiovascular: regular rate and rhythm, other (S1,S2) Gastrointestinal: normoactive bowel sounds, hypoactive bowel sounds, non-tender, non-distended (protuberant), other (protuberant) Integumentary: normal Extremities: no cyanosis, no edema, pulses normal, no ischemia or petechiae Neurologic: non-focal exam (tracks voice), pupils equal and round, CN II-XII no rmal, motor strength normal and Psychiatric: mood appropriate, affect normal CBC and BMP: 05/04/21 04:57 05/05/21 04:55 ABG, PT/INR, D-dimer: ABG ABG pH 7.531 (7.320-7.450) H 05/03/21 03:57 POC ABG pCO2 31.0 mmHg (32.0-48.0) L 05/03/21 03:57 POC ABG pO2 64.3 mmHg (83-108) L 05/03/21 03:57 POC ABG HCO3 25.4 05/03/21 03:57 ABG O2 Saturation 93.5 (0-100) 05/03/21 03:57 PT/INR, D-dimer PT 12.2 Sec. (12.2-14.9) 04/15/21 17:20 INR 0.91 (0.87-1.13) 04/15/21 17:20 Abnormal lab findings: Abnormal Labs 04/15/21 04/15/21 04/15/21 17:00 17:20 17:20 WBC 11.2 H RBC Hgb Hct 43.0 H MCV RDW 15.3 H Plt Count Lymph % (Auto) 12.8 L Seg Neutrophils % 82.4 H Seg Neuts % (Manual) Lymphocytes % (Manual) Monocytes % (Manual) Seg Neutrophils # 9.3 H Seg Neutrophils # Man Lymphocytes # (Manual) Monocytes # (Manual) ABG pH POC ABG pCO2 POC ABG pO2 ABG Hemoglobin ABG Oxyhemoglobin ABG Sodium ABG Potassium ABG Chloride ABG Glucose Carboxyhemoglobin Sodium 129 L Potassium 7.1 H* Chloride 91.9 L BUN 35 H Creatinine 2.8 H Glucose POC Glucose 191 H Calcium Phosphorus Magnesium AST 69 H ALT Total Creatine Kinase CK-MB (CK-2) Troponin T Total Protein Albumin HDL Cholesterol TSH Free T3 Index Arterial Blood Glucose Arterial Blood Ionized Calcium Urine pH Urine WBC (Auto) Urine Creatinine Acetaminophen 04/15/21 04/15/21 04/15/21 17:20 17:20 17:20 WBC RBC Hgb Hct MCV RDW Plt Count Lymph % (Auto) Seg Neutrophils % Seg Neuts % (Manual) Lymphocytes % (Manual) Monocytes % (Manual) Seg Neutrophils # Seg Neutrophils # Man Lymphocytes # (Manual) Monocytes # (Manual) ABG pH POC ABG pCO2 POC ABG pO2 ABG Hemoglobin ABG Oxyhemoglobin ABG Sodium ABG Potassium ABG Chloride ABG Glucose Carboxyhemoglobin Sodium Potassium Chloride BUN Creatinine Glucose POC Glucose Calcium Phosphorus Magnesium AST ALT Total Creatine Kinase 1000 H CK-MB (CK-2) Troponin T Total Protein Albumin HDL Cholesterol TSH 14.190 H Free T3 Index Arterial Blood Glucose Arterial Blood Ionized Calcium Urine pH Urine WBC (Auto) Urine Creatinine Acetaminophen 5.0 L 04/15/21 04/15/21 04/15/21 20:49 21:23 23:15 WBC RBC Hgb Hct MCV RDW Plt Count Lymph % (Auto) Seg Neutrophils % Seg Neuts % (Manual) Lymphocytes % (Manual) Monocytes % (Manual) Seg Neutrophils # Seg Neutrophils # Man Lymphocytes # (Manual) Monocytes # (Manual) ABG pH 7.557 H POC ABG pCO2 30.0 L POC ABG pO2 493.3 H ABG Hemoglobin ABG Oxyhemoglobin 99.0 H ABG Sodium 131.5 L ABG Potassium 4.7 H ABG Chloride 94.0 L ABG Glucose 218 H Carboxyhemoglobin Sodium Potassium Chloride BUN Creatinine Glucose POC Glucose 173 H 207 H Calcium Phosphorus Magnesium AST ALT Total Creatine Kinase CK-MB (CK-2) Troponin T Total Protein Albumin HDL Cholesterol TSH Free T3 Index Arterial Blood Glucose 218 H Arterial Blood Ionized Calcium 5.4 H Urine pH Urine WBC (Auto) Urine Creatinine Acetaminophen 04/16/21 04/16/21 04/16/21 00:09 00:12 00:19 WBC RBC Hgb Hct MCV RDW Plt Count Lymph % (Auto) Seg Neutrophils % Seg Neuts % (Manual) Lymphocytes % (Manual) Monocytes % (Manual) Seg Neutrophils # Seg Neutrophils # Man Lymphocytes # (Manual) Monocytes # (Manual) ABG pH POC ABG pCO2 POC ABG pO2 ABG Hemoglobin ABG Oxyhemoglobin ABG Sodium ABG Potassium ABG Chloride ABG Glucose Carboxyhemoglobin Sodium Potassium 6.7 H* Chloride BUN Creatinine Glucose POC Glucose Calcium Phosphorus Magnesium AST ALT Total Creatine Kinase CK-MB (CK-2) Troponin T Total Protein Albumin HDL Cholesterol TSH Free T3 Index Arterial Blood Glucose Arterial Blood Ionized Calcium Urine pH 9.0 H Urine WBC (Auto) Urine Creatinine 24.4 H Acetaminophen 04/16/21 04/16/21 04/16/21 03:43 03:55 05:02 WBC 21.2 H RBC Hgb Hct 43.4 H MCV 98 H RDW Plt Count Lymph % (Auto) Seg Neutrophils % Seg Neuts % (Manual) 84.0 H Lymphocytes % (Manual) 2.0 L Monocytes % (Manual) 10.0 H Seg Neutrophils # Seg Neutrophils # Man 17.8 H Lymphocytes # (Manual) 0.4 L Monocytes # (Manual) 2.1 H ABG pH 7.461 H POC ABG pCO2 POC ABG pO2 ABG Hemoglobin ABG Oxyhemoglobin ABG Sodium 126.8 L ABG Potassium 5.4 H ABG Chloride 90.0 L ABG Glucose 325 H Carboxyhemoglobin Sodium Potassium Chloride BUN Creatinine Glucose POC Glucose 391 H Calcium Phosphorus Magnesium AST ALT Total Creatine Kinase CK-MB (CK-2) Troponin T Total Protein Albumin HDL Cholesterol TSH Free T3 Index Arterial Blood Glucose 325 H Arterial Blood Ionized Calcium Urine pH Urine WBC (Auto) Urine Creatinine Acetaminophen 04/16/21 04/16/21 04/16/21 05:02 11:34 16:09 WBC RBC Hgb Hct MCV RDW Plt Count Lymph % (Auto) Seg Neutrophils % Seg Neuts % (Manual) Lymphocytes % (Manual) Monocytes % (Manual) Seg Neutrophils # Seg Neutrophils # Man Lymphocytes # (Manual) Monocytes # (Manual) ABG pH POC ABG pCO2 POC ABG pO2 ABG Hemoglobin ABG Oxyhemoglobin ABG Sodium ABG Potassium ABG Chloride ABG Glucose Carboxyhemoglobin Sodium 131 L Potassium 5.9 H Chloride 88.7 L BUN 34 H Creatinine 2.9 H Glucose 249 H POC Glucose 382 H 300 H Calcium 10.4 H Phosphorus Magnesium AST 65 H ALT Total Creatine Kinase CK-MB (CK-2) Troponin T Total Protein Albumin 3.8 L HDL Cholesterol TSH Free T3 Index Arterial Blood Glucose Arterial Blood Ionized Calcium Urine pH Urine WBC (Auto) Urine Creatinine Acetaminophen 04/16/21 04/16/21 04/16/21 18:15 19:01 19:01 WBC RBC Hgb Hct MCV RDW Plt Count Lymph % (Auto) Seg Neutrophils % Seg Neuts % (Manual) Lymphocytes % (Manual) Monocytes % (Manual) Seg Neutrophils # Seg Neutrophils # Man Lymphocytes # (Manual) Monocytes # (Manual) ABG pH POC ABG pCO2 POC ABG pO2 ABG Hemoglobin ABG Oxyhemoglobin ABG Sodium ABG Potassium ABG Chloride ABG Glucose Carboxyhemoglobin Sodium 125 L Potassium 5.5 H Chloride 84.5 L BUN 37 H Creatinine 3.5 H Glucose 236 H POC Glucose 287 H Calcium Phosphorus Magnesium AST ALT Total Creatine Kinase CK-MB (CK-2) Troponin T Total Protein Albumin HDL Cholesterol TSH Free T3 Index 1.1 L Arterial Blood Glucose Arterial Blood Ionized Calcium Urine pH Urine WBC (Auto) Urine Creatinine Acetaminophen 04/16/21 04/16/21 04/17/21 19:01 23:48 03:09 WBC RBC Hgb Hct MCV RDW Plt Count Lymph % (Auto) Seg Neutrophils % Seg Neuts % (Manual) Lymphocytes % (Manual) Monocytes % (Manual) Seg Neutrophils # Seg Neutrophils # Man Lymphocytes # (Manual) Monocytes # (Manual) ABG pH 7.518 H POC ABG pCO2 POC ABG pO2 ABG Hemoglobin ABG Oxyhemoglobin ABG Sodium 126.4 L ABG Potassium ABG Chloride 89.0 L ABG Glucose 200 H Carboxyhemoglobin Sodium Potassium 5.6 H Chloride BUN Creatinine Glucose POC Glucose 243 H Calcium Phosphorus Magnesium AST ALT Total Creatine Kinase CK-MB (CK-2) Troponin T Total Protein Albumin HDL Cholesterol TSH Free T3 Index Arterial Blood Glucose 200 H Arterial Blood Ionized Calcium 4.4 L Urine pH Urine WBC (Auto) Urine Creatinine Acetaminophen 04/17/21 04/17/21 04/17/21 05:04 06:14 11:55 WBC RBC Hgb Hct MCV RDW Plt Count Lymph % (Auto) Seg Neutrophils % Seg Neuts % (Manual) Lymphocytes % (Manual) Monocytes % (Manual) Seg Neutrophils # Seg Neutrophils # Man Lymphocytes # (Manual) Monocytes # (Manual) ABG pH POC ABG pCO2 POC ABG pO2 ABG Hemoglobin ABG Oxyhemoglobin ABG Sodium ABG Potassium ABG Chloride ABG Glucose Carboxyhemoglobin Sodium 129 L Potassium Chloride 86.1 L BUN 39 H Creatinine 3.5 H Glucose 202 H POC Glucose 208 H 276 H Calcium Phosphorus Magnesium AST ALT Total Creatine Kinase 750 H CK-MB (CK-2) Troponin T 0.119 H* D Total Protein Albumin HDL Cholesterol 61 H TSH Free T3 Index Arterial Blood Glucose Arterial Blood Ionized Calcium Urine pH Urine WBC (Auto) Urine Creatinine Acetaminophen 04/17/21 04/17/21 04/17/21 15:35 15:35 17:07 WBC 17.1 H RBC Hgb Hct MCV RDW Plt Count Lymph % (Auto) Seg Neutrophils % Seg Neuts % (Manual) Lymphocytes % (Manual) Monocytes % (Manual) Seg Neutrophils # Seg Neutrophils # Man Lymphocytes # (Manual) Monocytes # (Manual) ABG pH POC ABG pCO2 POC ABG pO2 ABG Hemoglobin ABG Oxyhemoglobin ABG Sodium ABG Potassium ABG Chloride ABG Glucose Carboxyhemoglobin Sodium Potassium Chloride BUN Creatinine Glucose POC Glucose 148 H Calcium Phosphorus Magnesium AST ALT Total Creatine Kinase 615 H CK-MB (CK-2) 9.1 H Troponin T Total Protein Albumin HDL Cholesterol TSH Free T3 Index Arterial Blood Glucose Arterial Blood Ionized Calcium Urine pH Urine WBC (Auto) Urine Creatinine Acetaminophen 04/18/21 04/18/21 04/18/21 00:01 03:00 05:24 WBC RBC Hgb Hct MCV RDW Plt Count Lymph % (Auto) Seg Neutrophils % Seg Neuts % (Manual) Lymphocytes % (Manual) Monocytes % (Manual) Seg Neutrophils # Seg Neutrophils # Man Lymphocytes # (Manual) Monocytes # (Manual) ABG pH 7.497 H POC ABG pCO2 POC ABG pO2 77.7 L ABG Hemoglobin 10.4 L ABG Oxyhemoglobin ABG Sodium 129.7 L ABG Potassium 2.8 L ABG Chloride 92.0 L ABG Glucose 134 H Carboxyhemoglobin 0.3 L Sodium Potassium Chloride BUN Creatinine Glucose POC Glucose 192 H 162 H Calcium Phosphorus Magnesium AST ALT Total Creatine Kinase CK-MB (CK-2) Troponin T Total Protein Albumin HDL Cholesterol TSH Free T3 Index Arterial Blood Glucose 134 H Arterial Blood Ionized Calcium 4.3 L Urine pH Urine WBC (Auto) Urine Creatinine Acetaminophen 04/18/21 04/18/21 04/18/21 05:34 05:34 05:43 WBC 15.3 H RBC 3.34 L Hgb Hct MCV RDW 15.3 H Plt Count Lymph % (Auto) Seg Neutrophils % Seg Neuts % (Manual) Lymphocytes % (Manual) Monocytes % (Manual) Seg Neutrophils # Seg Neutrophils # Man Lymphocytes # (Manual) Monocytes # (Manual) ABG pH POC ABG pCO2 POC ABG pO2 ABG Hemoglobin ABG Oxyhemoglobin ABG Sodium ABG Potassium ABG Chloride ABG Glucose Carboxyhemoglobin Sodium 134 L Potassium 3.0 L D Chloride 93.5 L BUN 42 H Creatinine 3.1 H Glucose 152 H POC Glucose Calcium Phosphorus Magnesium 1.40 L AST ALT Total Creatine Kinase 427 H CK-MB (CK-2) Troponin T 0.081 H D Total Protein Albumin HDL Cholesterol TSH Free T3 Index Arterial Blood Glucose Arterial Blood Ionized Calcium Urine pH Urine WBC (Auto) Urine Creatinine Acetaminophen 04/18/21 04/18/21 04/18/21 09:11 11:34 17:24 WBC RBC Hgb Hct MCV RDW Plt Count Lymph % (Auto) Seg Neutrophils % Seg Neuts % (Manual) Lymphocytes % (Manual) Monocytes % (Manual) Seg Neutrophils # Seg Neutrophils # Man Lymphocytes # (Manual) Monocytes # (Manual) ABG pH POC ABG pCO2 POC ABG pO2 ABG Hemoglobin ABG Oxyhemoglobin ABG Sodium ABG Potassium ABG Chloride ABG Glucose Carboxyhemoglobin Sodium Potassium Chloride BUN Creatinine Glucose POC Glucose 170 H 151 H Calcium Phosphorus Magnesium AST ALT Total Creatine Kinase CK-MB (CK-2) Troponin T Total Protein Albumin HDL Cholesterol TSH Free T3 Index Arterial Blood Glucose Arterial Blood Ionized Calcium Urine pH Urine WBC (Auto) 34.0 H Urine Creatinine Acetaminophen 04/18/21 04/19/21 04/19/21 23:18 04:09 05:19 WBC RBC Hgb Hct MCV RDW Plt Count Lymph % (Auto) Seg Neutrophils % Seg Neuts % (Manual) Lymphocytes % (Manual) Monocytes % (Manual) Seg Neutrophils # Seg Neutrophils # Man Lymphocytes # (Manual) Monocytes # (Manual) ABG pH 7.476 H POC ABG pCO2 POC ABG pO2 79.4 L ABG Hemoglobin 10.7 L ABG Oxyhemoglobin ABG Sodium 131.2 L ABG Potassium 2.8 L ABG Chloride 94.0 L ABG Glucose 209 H Carboxyhemoglobin 0.3 L Sodium Potassium Chloride BUN Creatinine Glucose POC Glucose 182 H 204 H Calcium Phosphorus Magnesium AST ALT Total Creatine Kinase CK-MB (CK-2) Troponin T Total Protein Albumin HDL Cholesterol TSH Free T3 Index Arterial Blood Glucose 209 H Arterial Blood Ionized Calcium Urine pH Urine WBC (Auto) Urine Creatinine Acetaminophen 04/19/21 04/19/21 04/19/21 07:30 07:30 10:35 WBC 14.8 H RBC 3.20 L Hgb Hct MCV 98 H RDW Plt Count 137 L Lymph % (Auto) Seg Neutrophils % Seg Neuts % (Manual) Lymphocytes % (Manual) Monocytes % (Manual) Seg Neutrophils # Seg Neutrophils # Man Lymphocytes # (Manual) Monocytes # (Manual) ABG pH 7.464 H POC ABG pCO2 POC ABG pO2 81.8 L ABG Hemoglobin 10.8 L ABG Oxyhemoglobin ABG Sodium 129.6 L ABG Potassium ABG Chloride 95.0 L ABG Glucose 238 H Carboxyhemoglobin Sodium 133 L Potassium 2.8 L* Chloride 94.4 L BUN 43 H Creatinine 2.7 H Glucose 255 H POC Glucose Calcium 8.0 L Phosphorus Magnesium AST ALT Total Creatine Kinase CK-MB (CK-2) Troponin T 0.060 H D Total Protein Albumin HDL Cholesterol TSH Free T3 Index Arterial Blood Glucose 238 H Arterial Blood Ionized Calcium Urine pH Urine WBC (Auto) Urine Creatinine Acetaminophen 04/19/21 04/19/21 04/19/21 11:48 20:40 23:04 WBC RBC Hgb Hct MCV RDW Plt Count Lymph % (Auto) Seg Neutrophils % Seg Neuts % (Manual) Lymphocytes % (Manual) Monocytes % (Manual) Seg Neutrophils # Seg Neutrophils # Man Lymphocytes # (Manual) Monocytes # (Manual) ABG pH POC ABG pCO2 POC ABG pO2 ABG Hemoglobin ABG Oxyhemoglobin ABG Sodium ABG Potassium ABG Chloride ABG Glucose Carboxyhemoglobin Sodium Potassium 3.4 L D Chloride BUN Creatinine Glucose POC Glucose 208 H 173 H Calcium Phosphorus Magnesium AST ALT Total Creatine Kinase CK-MB (CK-2) Troponin T Total Protein Albumin HDL Cholesterol TSH Free T3 Index Arterial Blood Glucose Arterial Blood Ionized Calcium Urine pH Urine WBC (Auto) Urine Creatinine Acetaminophen 04/20/21 04/20/21 04/20/21 02:56 03:32 03:32 WBC 13.2 H RBC 3.18 L Hgb Hct MCV RDW Plt Count Lymph % (Auto) Seg Neutrophils % Seg Neuts % (Manual) Lymphocytes % (Manual) Monocytes % (Manual) Seg Neutrophils # Seg Neutrophils # Man Lymphocytes # (Manual) Monocytes # (Manual) ABG pH 7.526 H POC ABG pCO2 POC ABG pO2 ABG Hemoglobin 10.5 L ABG Oxyhemoglobin ABG Sodium 133.5 L ABG Potassium ABG Chloride ABG Glucose 157 H Carboxyhemoglobin 0.3 L Sodium 135 L Potassium Chloride 96.7 L BUN 40 H Creatinine 2.3 H Glucose 142 H POC Glucose Calcium Phosphorus Magnesium AST ALT Total Creatine Kinase CK-MB (CK-2) Troponin T 0.065 H Total Protein Albumin HDL Cholesterol TSH Free T3 Index Arterial Blood Glucose 157 H Arterial Blood Ionized Calcium Urine pH Urine WBC (Auto) Urine Creatinine Acetaminophen 04/20/21 04/20/21 04/20/21 03:46 05:42 11:50 WBC RBC Hgb Hct MCV RDW Plt Count Lymph % (Auto) Seg Neutrophils % Seg Neuts % (Manual) Lymphocytes % (Manual) Monocytes % (Manual) Seg Neutrophils # Seg Neutrophils # Man Lymphocytes # (Manual) Monocytes # (Manual) ABG pH POC ABG pCO2 POC ABG pO2 ABG Hemoglobin ABG Oxyhemoglobin ABG Sodium ABG Potassium ABG Chloride ABG Glucose Carboxyhemoglobin Sodium Potassium Chloride BUN Creatinine Glucose POC Glucose 160 H 194 H Calcium Phosphorus 2.10 L Magnesium AST ALT Total Creatine Kinase CK-MB (CK-2) Troponin T Total Protein Albumin HDL Cholesterol TSH Free T3 Index Arterial Blood Glucose Arterial Blood Ionized Calcium Urine pH Urine WBC (Auto) Urine Creatinine Acetaminophen 04/20/21 04/20/21 04/21/21 17:09 23:18 05:26 WBC RBC Hgb Hct MCV RDW Plt Count Lymph % (Auto) Seg Neutrophils % Seg Neuts % (Manual) Lymphocytes % (Manual) Monocytes % (Manual) Seg Neutrophils # Seg Neutrophils # Man Lymphocytes # (Manual) Monocytes # (Manual) ABG pH POC ABG pCO2 POC ABG pO2 ABG Hemoglobin ABG Oxyhemoglobin ABG Sodium ABG Potassium ABG Chloride ABG Glucose Carboxyhemoglobin Sodium Potassium Chloride BUN Creatinine Glucose POC Glucose 153 H 162 H 164 H Calcium Phosphorus Magnesium AST ALT Total Creatine Kinase CK-MB (CK-2) Troponin T Total Protein Albumin HDL Cholesterol TSH Free T3 Index Arterial Blood Glucose Arterial Blood Ionized Calcium Urine pH Urine WBC (Auto) Urine Creatinine Acetaminophen 04/21/21 04/21/21 04/21/21 05:51 05:51 12:12 WBC RBC 3.20 L Hgb Hct MCV 99 H RDW 15.3 H Plt Count Lymph % (Auto) Seg Neutrophils % Seg Neuts % (Manual) Lymphocytes % (Manual) Monocytes % (Manual) Seg Neutrophils # Seg Neutrophils # Man Lymphocytes # (Manual) Monocytes # (Manual) ABG pH POC ABG pCO2 POC ABG pO2 ABG Hemoglobin ABG Oxyhemoglobin ABG Sodium ABG Potassium ABG Chloride ABG Glucose Carboxyhemoglobin Sodium Potassium Chloride 96.6 L BUN 42 H Creatinine 2.1 H Glucose 171 H POC Glucose 167 H Calcium Phosphorus Magnesium AST ALT Total Creatine Kinase CK-MB (CK-2) Troponin T Total Protein Albumin HDL Cholesterol TSH Free T3 Index Arterial Blood Glucose Arterial Blood Ionized Calcium Urine pH Urine WBC (Auto) Urine Creatinine Acetaminophen 04/21/21 04/21/21 04/22/21 17:13 23:42 05:29 WBC RBC Hgb Hct MCV RDW Plt Count Lymph % (Auto) Seg Neutrophils % Seg Neuts % (Manual) Lymphocytes % (Manual) Monocytes % (Manual) Seg Neutrophils # Seg Neutrophils # Man Lymphocytes # (Manual) Monocytes # (Manual) ABG pH POC ABG pCO2 POC ABG pO2 ABG Hemoglobin ABG Oxyhemoglobin ABG Sodium ABG Potassium ABG Chloride ABG Glucose Carboxyhemoglobin Sodium Potassium Chloride BUN Creatinine Glucose POC Glucose 178 H 253 H 208 H Calcium Phosphorus Magnesium AST ALT Total Creatine Kinase CK-MB (CK-2) Troponin T Total Protein Albumin HDL Cholesterol TSH Free T3 Index Arterial Blood Glucose Arterial Blood Ionized Calcium Urine pH Urine WBC (Auto) Urine Creatinine Acetaminophen 04/22/21 04/22/21 04/22/21 08:00 08:00 12:06 WBC 12.9 H RBC Hgb Hct MCV RDW Plt Count Lymph % (Auto) Seg Neutrophils % Seg Neuts % (Manual) Lymphocytes % (Manual) Monocytes % (Manual) Seg Neutrophils # Seg Neutrophils # Man Lymphocytes # (Manual) Monocytes # (Manual) ABG pH POC ABG pCO2 POC ABG pO2 ABG Hemoglobin ABG Oxyhemoglobin ABG Sodium ABG Potassium ABG Chloride ABG Glucose Carboxyhemoglobin Sodium Potassium Chloride BUN 47 H Creatinine 1.9 H Glucose 252 H POC Glucose 298 H Calcium Phosphorus Magnesium AST ALT Total Creatine Kinase CK-MB (CK-2) Troponin T Total Protein Albumin HDL Cholesterol TSH Free T3 Index Arterial Blood Glucose Arterial Blood Ionized Calcium Urine pH Urine WBC (Auto) Urine Creatinine Acetaminophen 04/22/21 04/22/21 04/23/21 17:34 23:01 05:08 WBC RBC Hgb Hct MCV RDW Plt Count Lymph % (Auto) Seg Neutrophils % Seg Neuts % (Manual) Lymphocytes % (Manual) Monocytes % (Manual) Seg Neutrophils # Seg Neutrophils # Man Lymphocytes # (Manual) Monocytes # (Manual) ABG pH POC ABG pCO2 POC ABG pO2 ABG Hemoglobin ABG Oxyhemoglobin ABG Sodium ABG Potassium ABG Chloride ABG Glucose Carboxyhemoglobin Sodium Potassium Chloride BUN Creatinine Glucose POC Glucose 259 H 280 H 223 H Calcium Phosphorus Magnesium AST ALT Total Creatine Kinase CK-MB (CK-2) Troponin T Total Protein Albumin HDL Cholesterol TSH Free T3 Index Arterial Blood Glucose Arterial Blood Ionized Calcium Urine pH Urine WBC (Auto) Urine Creatinine Acetaminophen 04/23/21 04/23/21 04/23/21 07:02 11:57 17:33 WBC RBC Hgb Hct MCV RDW Plt Count Lymph % (Auto) Seg Neutrophils % Seg Neuts % (Manual) Lymphocytes % (Manual) Monocytes % (Manual) Seg Neutrophils # Seg Neutrophils # Man Lymphocytes # (Manual) Monocytes # (Manual) ABG pH POC ABG pCO2 POC ABG pO2 ABG Hemoglobin ABG Oxyhemoglobin ABG Sodium ABG Potassium ABG Chloride ABG Glucose Carboxyhemoglobin Sodium Potassium Chloride 97.7 L BUN 57 H Creatinine 2.0 H Glucose 253 H POC Glucose 310 H 235 H Calcium Phosphorus Magnesium AST ALT Total Creatine Kinase CK-MB (CK-2) Troponin T Total Protein Albumin HDL Cholesterol TSH Free T3 Index Arterial Blood Glucose Arterial Blood Ionized Calcium Urine pH Urine WBC (Auto) Urine Creatinine Acetaminophen 04/23/21 04/24/21 04/24/21 23:15 05:23 05:46 WBC RBC Hgb Hct MCV RDW Plt Count Lymph % (Auto) Seg Neutrophils % Seg Neuts % (Manual) Lymphocytes % (Manual) Monocytes % (Manual) Seg Neutrophils # Seg Neutrophils # Man Lymphocytes # (Manual) Monocytes # (Manual) ABG pH POC ABG pCO2 POC ABG pO2 ABG Hemoglobin ABG Oxyhemoglobin ABG Sodium ABG Potassium ABG Chloride ABG Glucose Carboxyhemoglobin Sodium Potassium 5.2 H D Chloride BUN 68 H Creatinine 2.3 H Glucose 277 H POC Glucose 197 H 274 H Calcium Phosphorus Magnesium AST ALT Total Creatine Kinase CK-MB (CK-2) Troponin T Total Protein Albumin HDL Cholesterol TSH Free T3 Index Arterial Blood Glucose Arterial Blood Ionized Calcium Urine pH Urine WBC (Auto) Urine Creatinine Acetaminophen 04/24/21 04/24/21 04/24/21 11:33 11:52 17:49 WBC RBC Hgb Hct MCV RDW Plt Count Lymph % (Auto) Seg Neutrophils % Seg Neuts % (Manual) Lymphocytes % (Manual) Monocytes % (Manual) Seg Neutrophils # Seg Neutrophils # Man Lymphocytes # (Manual) Monocytes # (Manual) ABG pH POC ABG pCO2 POC ABG pO2 72.7 L ABG Hemoglobin 11.6 L ABG Oxyhemoglobin 92.9 L ABG Sodium ABG Potassium ABG Chloride ABG Glucose 269 H Carboxyhemoglobin Sodium Potassium Chloride BUN Creatinine Glucose POC Glucose 223 H 252 H Calcium Phosphorus Magnesium AST ALT Total Creatine Kinase CK-MB (CK-2) Troponin T Total Protein Albumin HDL Cholesterol TSH Free T3 Index Arterial Blood Glucose 269 H Arterial Blood Ionized Calcium Urine pH Urine WBC (Auto) Urine Creatinine Acetaminophen 04/24/21 04/24/21 04/25/21 21:00 23:48 03:06 WBC RBC Hgb Hct MCV RDW Plt Count Lymph % (Auto) Seg Neutrophils % Seg Neuts % (Manual) Lymphocytes % (Manual) Monocytes % (Manual) Seg Neutrophils # Seg Neutrophils # Man Lymphocytes # (Manual) Monocytes # (Manual) ABG pH 7.521 H 7.451 H POC ABG pCO2 POC ABG pO2 80.7 L 77.1 L ABG Hemoglobin 10.4 L 11.2 L ABG Oxyhemoglobin ABG Sodium ABG Potassium ABG Chloride ABG Glucose 186 H 165 H Carboxyhemoglobin 0 L Sodium Potassium Chloride BUN Creatinine Glucose POC Glucose 141 H Calcium Phosphorus Magnesium AST ALT Total Creatine Kinase CK-MB (CK-2) Troponin T Total Protein Albumin HDL Cholesterol TSH Free T3 Index Arterial Blood Glucose 186 H 165 H Arterial Blood Ionized Calcium Urine pH Urine WBC (Auto) Urine Creatinine Acetaminophen 04/25/21 04/25/21 04/25/21 03:56 03:56 06:03 WBC 12.3 H RBC 3.40 L Hgb Hct MCV RDW Plt Count Lymph % (Auto) Seg Neutrophils % Seg Neuts % (Manual) Lymphocytes % (Manual) Monocytes % (Manual) Seg Neutrophils # Seg Neutrophils # Man Lymphocytes # (Manual) Monocytes # (Manual) ABG pH POC ABG pCO2 POC ABG pO2 ABG Hemoglobin ABG Oxyhemoglobin ABG Sodium ABG Potassium ABG Chloride ABG Glucose Carboxyhemoglobin Sodium Potassium Chloride BUN 78 H Creatinine 2.5 H Glucose 152 H POC Glucose 171 H Calcium Phosphorus Magnesium AST ALT Total Creatine Kinase CK-MB (CK-2) Troponin T Total Protein Albumin HDL Cholesterol TSH Free T3 Index Arterial Blood Glucose Arterial Blood Ionized Calcium Urine pH Urine WBC (Auto) Urine Creatinine Acetaminophen 04/25/21 04/25/21 04/26/21 11:43 15:37 00:05 WBC RBC Hgb Hct MCV RDW Plt Count Lymph % (Auto) Seg Neutrophils % Seg Neuts % (Manual) Lymphocytes % (Manual) Monocytes % (Manual) Seg Neutrophils # Seg Neutrophils # Man Lymphocytes # (Manual) Monocytes # (Manual) ABG pH POC ABG pCO2 POC ABG pO2 ABG Hemoglobin ABG Oxyhemoglobin ABG Sodium ABG Potassium ABG Chloride ABG Glucose Carboxyhemoglobin Sodium Potassium Chloride BUN Creatinine Glucose POC Glucose 181 H 167 H 144 H Calcium Phosphorus Magnesium AST ALT Total Creatine Kinase CK-MB (CK-2) Troponin T Total Protein Albumin HDL Cholesterol TSH Free T3 Index Arterial Blood Glucose Arterial Blood Ionized Calcium Urine pH Urine WBC (Auto) Urine Creatinine Acetaminophen 04/26/21 04/26/21 04/26/21 04:30 05:44 09:30 WBC RBC Hgb Hct MCV RDW Plt Count Lymph % (Auto) Seg Neutrophils % Seg Neuts % (Manual) Lymphocytes % (Manual) Monocytes % (Manual) Seg Neutrophils # Seg Neutrophils # Man Lymphocytes # (Manual) Monocytes # (Manual) ABG pH 7.529 H POC ABG pCO2 POC ABG pO2 66.1 L ABG Hemoglobin 11.2 L ABG Oxyhemoglobin 92.8 L ABG Sodium ABG Potassium ABG Chloride ABG Glucose 216 H Carboxyhemoglobin 0.3 L Sodium Potassium Chloride BUN 82 H Creatinine 2.7 H Glucose 238 H POC Glucose 202 H Calcium Phosphorus Magnesium AST ALT Total Creatine Kinase CK-MB (CK-2) Troponin T Total Protein Albumin HDL Cholesterol TSH Free T3 Index Arterial Blood Glucose 216 H Arterial Blood Ionized Calcium Urine pH Urine WBC (Auto) Urine Creatinine Acetaminophen 04/26/21 04/26/21 04/26/21 09:30 11:32 17:21 WBC 24.7 H RBC 3.32 L Hgb Hct MCV RDW Plt Count Lymph % (Auto) Seg Neutrophils % Seg Neuts % (Manual) Lymphocytes % (Manual) Monocytes % (Manual) Seg Neutrophils # Seg Neutrophils # Man Lymphocytes # (Manual) Monocytes # (Manual) ABG pH POC ABG pCO2 POC ABG pO2 ABG Hemoglobin ABG Oxyhemoglobin ABG Sodium ABG Potassium ABG Chloride ABG Glucose Carboxyhemoglobin Sodium Potassium Chloride BUN Creatinine Glucose POC Glucose 245 H 264 H Calcium Phosphorus Magnesium AST ALT Total Creatine Kinase CK-MB (CK-2) Troponin T Total Protein Albumin HDL Cholesterol TSH Free T3 Index Arterial Blood Glucose Arterial Blood Ionized Calcium Urine pH Urine WBC (Auto) Urine Creatinine Acetaminophen 04/26/21 04/27/21 04/27/21 23:18 04:23 04:54 WBC RBC Hgb Hct MCV RDW Plt Count Lymph % (Auto) Seg Neutrophils % Seg Neuts % (Manual) Lymphocytes % (Manual) Monocytes % (Manual) Seg Neutrophils # Seg Neutrophils # Man Lymphocytes # (Manual) Monocytes # (Manual) ABG pH 7.549 H POC ABG pCO2 30.0 L POC ABG pO2 64.9 L ABG Hemoglobin 11 L ABG Oxyhemoglobin 93.3 L ABG Sodium ABG Potassium ABG Chloride ABG Glucose 325 H Carboxyhemoglobin 0.3 L Sodium Potassium Chloride BUN Creatinine Glucose POC Glucose 201 H 298 H Calcium Phosphorus Magnesium AST ALT Total Creatine Kinase CK-MB (CK-2) Troponin T Total Protein Albumin HDL Cholesterol TSH Free T3 Index Arterial Blood Glucose 325 H Arterial Blood Ionized Calcium Urine pH Urine WBC (Auto) Urine Creatinine Acetaminophen 04/27/21 04/27/21 04/27/21 07:52 07:52 11:22 WBC 23.0 H RBC 3.32 L Hgb Hct MCV RDW 15.5 H Plt Count Lymph % (Auto) Seg Neutrophils % Seg Neuts % (Manual) Lymphocytes % (Manual) Monocytes % (Manual) Seg Neutrophils # Seg Neutrophils # Man Lymphocytes # (Manual) Monocytes # (Manual) ABG pH POC ABG pCO2 POC ABG pO2 ABG Hemoglobin ABG Oxyhemoglobin ABG Sodium ABG Potassium ABG Chloride ABG Glucose Carboxyhemoglobin Sodium Potassium 3.5 L Chloride BUN 90 H Creatinine 2.8 H Glucose 286 H POC Glucose 251 H Calcium Phosphorus Magnesium AST ALT Total Creatine Kinase CK-MB (CK-2) Troponin T Total Protein Albumin HDL Cholesterol TSH Free T3 Index Arterial Blood Glucose Arterial Blood Ionized Calcium Urine pH Urine WBC (Auto) Urine Creatinine Acetaminophen 04/27/21 04/27/21 04/27/21 17:21 17:45 23:05 WBC RBC Hgb Hct MCV RDW Plt Count Lymph % (Auto) Seg Neutrophils % Seg Neuts % (Manual) Lymphocytes % (Manual) Monocytes % (Manual) Seg Neutrophils # Seg Neutrophils # Man Lymphocytes # (Manual) Monocytes # (Manual) ABG pH POC ABG pCO2 POC ABG pO2 ABG Hemoglobin ABG Oxyhemoglobin ABG Sodium ABG Potassium ABG Chloride ABG Glucose Carboxyhemoglobin Sodium Potassium Chloride BUN Creatinine Glucose POC Glucose 180 H 178 H 189 H Calcium Phosphorus Magnesium AST ALT Total Creatine Kinase CK-MB (CK-2) Troponin T Total Protein Albumin HDL Cholesterol TSH Free T3 Index Arterial Blood Glucose Arterial Blood Ionized Calcium Urine pH Urine WBC (Auto) Urine Creatinine Acetaminophen 04/28/21 04/28/21 04/28/21 03:14 04:13 04:13 WBC 17.6 H RBC 3.03 L Hgb 9.7 L Hct 29.5 L MCV RDW Plt Count Lymph % (Auto) Seg Neutrophils % Seg Neuts % (Manual) Lymphocytes % (Manual) Monocytes % (Manual) Seg Neutrophils # Seg Neutrophils # Man Lymphocytes # (Manual) Monocytes # (Manual) ABG pH 7.507 H POC ABG pCO2 POC ABG pO2 62.0 L ABG Hemoglobin 10.2 L ABG Oxyhemoglobin 91.9 L ABG Sodium ABG Potassium ABG Chloride ABG Glucose 337 H Carboxyhemoglobin 0.2 L Sodium Potassium Chloride BUN 101 H Creatinine 3.1 H Glucose 304 H POC Glucose Calcium Phosphorus Magnesium AST 61 H ALT 64 H Total Creatine Kinase CK-MB (CK-2) Troponin T Total Protein 6.2 L Albumin 2.6 L HDL Cholesterol TSH Free T3 Index Arterial Blood Glucose 337 H Arterial Blood Ionized Calcium Urine pH Urine WBC (Auto) Urine Creatinine Acetaminophen 04/28/21 04/28/21 04/28/21 05:01 11:28 18:23 WBC RBC Hgb Hct MCV RDW Plt Count Lymph % (Auto) Seg Neutrophils % Seg Neuts % (Manual) Lymphocytes % (Manual) Monocytes % (Manual) Seg Neutrophils # Seg Neutrophils # Man Lymphocytes # (Manual) Monocytes # (Manual) ABG pH POC ABG pCO2 POC ABG pO2 ABG Hemoglobin ABG Oxyhemoglobin ABG Sodium ABG Potassium ABG Chloride ABG Glucose Carboxyhemoglobin Sodium Potassium Chloride BUN Creatinine Glucose POC Glucose 282 H 263 H 200 H Calcium Phosphorus Magnesium AST ALT Total Creatine Kinase CK-MB (CK-2) Troponin T Total Protein Albumin HDL Cholesterol TSH Free T3 Index Arterial Blood Glucose Arterial Blood Ionized Calcium Urine pH Urine WBC (Auto) Urine Creatinine Acetaminophen 04/28/21 04/29/21 04/29/21 23:49 03:24 04:22 WBC RBC Hgb Hct MCV RDW Plt Count Lymph % (Auto) Seg Neutrophils % Seg Neuts % (Manual) Lymphocytes % (Manual) Monocytes % (Manual) Seg Neutrophils # Seg Neutrophils # Man Lymphocytes # (Manual) Monocytes # (Manual) ABG pH 7.546 H POC ABG pCO2 POC ABG pO2 52.4 L ABG Hemoglobin 10.5 L ABG Oxyhemoglobin 88.3 L ABG Sodium ABG Potassium ABG Chloride ABG Glucose 217 H Carboxyhemoglobin 0.4 L Sodium 148 H Potassium Chloride BUN 110 H Creatinine 3.1 H Glucose 208 H POC Glucose 238 H Calcium Phosphorus Magnesium AST ALT Total Creatine Kinase CK-MB (CK-2) Troponin T Total Protein Albumin HDL Cholesterol TSH Free T3 Index Arterial Blood Glucose 217 H Arterial Blood Ionized Calcium Urine pH Urine WBC (Auto) Urine Creatinine Acetaminophen 04/29/21 04/29/21 04/29/21 04:22 05:08 11:26 WBC 15.2 H RBC 3.30 L Hgb 9.8 L Hct MCV RDW Plt Count Lymph % (Auto) Seg Neutrophils % Seg Neuts % (Manual) Lymphocytes % (Manual) Monocytes % (Manual) Seg Neutrophils # Seg Neutrophils # Man Lymphocytes # (Manual) Monocytes # (Manual) ABG pH POC ABG pCO2 POC ABG pO2 ABG Hemoglobin ABG Oxyhemoglobin ABG Sodium ABG Potassium ABG Chloride ABG Glucose Carboxyhemoglobin Sodium Potassium Chloride BUN Creatinine Glucose POC Glucose 181 H 218 H Calcium Phosphorus Magnesium AST ALT Total Creatine Kinase CK-MB (CK-2) Troponin T Total Protein Albumin HDL Cholesterol TSH Free T3 Index Arterial Blood Glucose Arterial Blood Ionized Calcium Urine pH Urine WBC (Auto) Urine Creatinine Acetaminophen 04/29/21 04/29/21 04/30/21 17:06 23:06 03:58 WBC RBC Hgb Hct MCV RDW Plt Count Lymph % (Auto) Seg Neutrophils % Seg Neuts % (Manual) Lymphocytes % (Manual) Monocytes % (Manual) Seg Neutrophils # Seg Neutrophils # Man Lymphocytes # (Manual) Monocytes # (Manual) ABG pH 7.547 H POC ABG pCO2 31.3 L POC ABG pO2 58.4 L ABG Hemoglobin 9.6 L ABG Oxyhemoglobin 91.1 L ABG Sodium ABG Potassium ABG Chloride 108.0 H ABG Glucose 248 H Carboxyhemoglobin 0.2 L Sodium Potassium Chloride BUN Creatinine Glucose POC Glucose 223 H 252 H Calcium Phosphorus Magnesium AST ALT Total Creatine Kinase CK-MB (CK-2) Troponin T Total Protein Albumin HDL Cholesterol TSH Free T3 Index Arterial Blood Glucose 248 H Arterial Blood Ionized Calcium Urine pH Urine WBC (Auto) Urine Creatinine Acetaminophen 04/30/21 04/30/21 04/30/21 05:23 05:54 11:47 WBC RBC Hgb Hct MCV RDW Plt Count Lymph % (Auto) Seg Neutrophils % Seg Neuts % (Manual) Lymphocytes % (Manual) Monocytes % (Manual) Seg Neutrophils # Seg Neutrophils # Man Lymphocytes # (Manual) Monocytes # (Manual) ABG pH POC ABG pCO2 POC ABG pO2 ABG Hemoglobin ABG Oxyhemoglobin ABG Sodium ABG Potassium ABG Chloride ABG Glucose Carboxyhemoglobin Sodium Potassium Chloride BUN 118 H Creatinine 3.3 H Glucose 263 H POC Glucose 244 H 237 H Calcium Phosphorus Magnesium AST ALT Total Creatine Kinase CK-MB (CK-2) Troponin T Total Protein Albumin HDL Cholesterol TSH Free T3 Index Arterial Blood Glucose Arterial Blood Ionized Calcium Urine pH Urine WBC (Auto) Urine Creatinine Acetaminophen 04/30/21 04/30/21 04/30/21 17:26 17:45 23:51 WBC RBC Hgb Hct MCV RDW Plt Count Lymph % (Auto) Seg Neutrophils % Seg Neuts % (Manual) Lymphocytes % (Manual) Monocytes % (Manual) Seg Neutrophils # Seg Neutrophils # Man Lymphocytes # (Manual) Monocytes # (Manual) ABG pH POC ABG pCO2 POC ABG pO2 ABG Hemoglobin ABG Oxyhemoglobin ABG Sodium ABG Potassium ABG Chloride ABG Glucose Carboxyhemoglobin Sodium Potassium Chloride BUN Creatinine Glucose POC Glucose 193 H 197 H Calcium Phosphorus Magnesium AST ALT Total Creatine Kinase CK-MB (CK-2) Troponin T Total Protein Albumin HDL Cholesterol TSH Free T3 Index Arterial Blood Glucose Arterial Blood Ionized Calcium Urine pH Urine WBC (Auto) 48.0 H Urine Creatinine Acetaminophen 05/01/21 05/01/21 05/01/21 04:02 04:57 07:11 WBC 12.3 H RBC 2.83 L Hgb 8.8 L Hct 27.3 L MCV RDW Plt Count Lymph % (Auto) Seg Neutrophils % Seg Neuts % (Manual) 80.0 H Lymphocytes % (Manual) 5.0 L Monocytes % (Manual) Seg Neutrophils # Seg Neutrophils # Man 9.8 H Lymphocytes # (Manual) 0.6 L Monocytes # (Manual) ABG pH 7.466 H POC ABG pCO2 POC ABG pO2 61.4 L ABG Hemoglobin 9.0 L ABG Oxyhemoglobin 91.1 L ABG Sodium ABG Potassium ABG Chloride 110.0 H ABG Glucose 245 H Carboxyhemoglobin Sodium Potassium Chloride BUN Creatinine Glucose POC Glucose 193 H Calcium Phosphorus Magnesium AST ALT Total Creatine Kinase CK-MB (CK-2) Troponin T Total Protein Albumin HDL Cholesterol TSH Free T3 Index Arterial Blood Glucose 245 H Arterial Blood Ionized Calcium Urine pH Urine WBC (Auto) Urine Creatinine Acetaminophen 05/01/21 05/01/21 05/01/21 07:11 07:45 11:30 WBC RBC Hgb Hct MCV RDW Plt Count Lymph % (Auto) Seg Neutrophils % Seg Neuts % (Manual) Lymphocytes % (Manual) Monocytes % (Manual) Seg Neutrophils # Seg Neutrophils # Man Lymphocytes # (Manual) Monocytes # (Manual) ABG pH POC ABG pCO2 POC ABG pO2 ABG Hemoglobin ABG Oxyhemoglobin ABG Sodium ABG Potassium ABG Chloride ABG Glucose Carboxyhemoglobin Sodium 146 H Potassium Chloride 108.4 H BUN 122 H Creatinine 3.4 H Glucose 235 H POC Glucose 212 H 247 H Calcium Phosphorus Magnesium AST ALT Total Creatine Kinase CK-MB (CK-2) Troponin T Total Protein Albumin HDL Cholesterol TSH Free T3 Index Arterial Blood Glucose Arterial Blood Ionized Calcium Urine pH Urine WBC (Auto) Urine Creatinine Acetaminophen 05/01/21 05/01/21 05/01/21 11:31 17:42 23:49 WBC RBC Hgb Hct MCV RDW Plt Count Lymph % (Auto) Seg Neutrophils % Seg Neuts % (Manual) Lymphocytes % (Manual) Monocytes % (Manual) Seg Neutrophils # Seg Neutrophils # Man Lymphocytes # (Manual) Monocytes # (Manual) ABG pH POC ABG pCO2 POC ABG pO2 ABG Hemoglobin ABG Oxyhemoglobin ABG Sodium ABG Potassium ABG Chloride ABG Glucose Carboxyhemoglobin Sodium Potassium Chloride BUN Creatinine Glucose POC Glucose 258 H 171 H 167 H Calcium Phosphorus Magnesium AST ALT Total Creatine Kinase CK-MB (CK-2) Troponin T Total Protein Albumin HDL Cholesterol TSH Free T3 Index Arterial Blood Glucose Arterial Blood Ionized Calcium Urine pH Urine WBC (Auto) Urine Creatinine Acetaminophen 05/02/21 05/02/21 05/02/21 05:12 08:34 11:53 WBC RBC Hgb Hct MCV RDW Plt Count Lymph % (Auto) Seg Neutrophils % Seg Neuts % (Manual) Lymphocytes % (Manual) Monocytes % (Manual) Seg Neutrophils # Seg Neutrophils # Man Lymphocytes # (Manual) Monocytes # (Manual) ABG pH POC ABG pCO2 POC ABG pO2 ABG Hemoglobin ABG Oxyhemoglobin ABG Sodium ABG Potassium ABG Chloride ABG Glucose Carboxyhemoglobin Sodium 148 H Potassium Chloride 110.4 H BUN 124 H Creatinine 3.4 H Glucose 208 H POC Glucose 163 H 185 H Calcium 8.3 L Phosphorus Magnesium AST ALT Total Creatine Kinase CK-MB (CK-2) Troponin T Total Protein Albumin HDL Cholesterol TSH Free T3 Index Arterial Blood Glucose Arterial Blood Ionized Calcium Urine pH Urine WBC (Auto) Urine Creatinine Acetaminophen 05/02/21 05/02/21 05/03/21 17:28 23:32 03:57 WBC RBC Hgb Hct MCV RDW Plt Count Lymph % (Auto) Seg Neutrophils % Seg Neuts % (Manual) Lymphocytes % (Manual) Monocytes % (Manual) Seg Neutrophils # Seg Neutrophils # Man Lymphocytes # (Manual) Monocytes # (Manual) ABG pH 7.531 H POC ABG pCO2 31.0 L POC ABG pO2 64.3 L ABG Hemoglobin 9.0 L ABG Oxyhemoglobin 92.6 L ABG Sodium 145.7 H ABG Potassium ABG Chloride 112.0 H ABG Glucose 202 H Carboxyhemoglobin Sodium Potassium Chloride BUN Creatinine Glucose POC Glucose 147 H 202 H Calcium Phosphorus Magnesium AST ALT Total Creatine Kinase CK-MB (CK-2) Troponin T Total Protein Albumin HDL Cholesterol TSH Free T3 Index Arterial Blood Glucose 202 H Arterial Blood Ionized Calcium Urine pH Urine WBC (Auto) Urine Creatinine Acetaminophen 05/03/21 05/03/21 05/03/21 05:14 05:44 11:10 WBC RBC Hgb Hct MCV RDW Plt Count Lymph % (Auto) Seg Neutrophils % Seg Neuts % (Manual) Lymphocytes % (Manual) Monocytes % (Manual) Seg Neutrophils # Seg Neutrophils # Man Lymphocytes # (Manual) Monocytes # (Manual) ABG pH POC ABG pCO2 POC ABG pO2 ABG Hemoglobin ABG Oxyhemoglobin ABG Sodium ABG Potassium ABG Chloride ABG Glucose Carboxyhemoglobin Sodium 147 H Potassium Chloride 109.7 H BUN 121 H Creatinine 3.1 H Glucose 190 H POC Glucose 175 H 202 H Calcium Phosphorus Magnesium AST ALT Total Creatine Kinase CK-MB (CK-2) Troponin T Total Protein Albumin HDL Cholesterol TSH Free T3 Index Arterial Blood Glucose Arterial Blood Ionized Calcium Urine pH Urine WBC (Auto) Urine Creatinine Acetaminophen 05/03/21 05/04/21 05/04/21 23:58 04:57 04:57 WBC RBC 2.61 L Hgb 8.2 L Hct 25.4 L MCV 98 H RDW 15.3 H Plt Count Lymph % (Auto) Seg Neutrophils % Seg Neuts % (Manual) Lymphocytes % (Manual) Monocytes % (Manual) Seg Neutrophils # Seg Neutrophils # Man Lymphocytes # (Manual) Monocytes # (Manual) ABG pH POC ABG pCO2 POC ABG pO2 ABG Hemoglobin ABG Oxyhemoglobin ABG Sodium ABG Potassium ABG Chloride ABG Glucose Carboxyhemoglobin Sodium 147 H Potassium Chloride 111.0 H BUN 104 H Creatinine 2.8 H Glucose 179 H POC Glucose 131 H Calcium Phosphorus Magnesium AST ALT Total Creatine Kinase CK-MB (CK-2) Troponin T Total Protein Albumin HDL Cholesterol TSH Free T3 Index Arterial Blood Glucose Arterial Blood Ionized Calcium Urine pH Urine WBC (Auto) Urine Creatinine Acetaminophen 05/04/21 05/04/21 05:19 11:28 WBC RBC Hgb Hct MCV RDW Plt Count Lymph % (Auto) Seg Neutrophils % Seg Neuts % (Manual) Lymphocytes % (Manual) Monocytes % (Manual) Seg Neutrophils # Seg Neutrophils # Man Lymphocytes # (Manual) Monocytes # (Manual) ABG pH POC ABG pCO2 POC ABG pO2 ABG Hemoglobin ABG Oxyhemoglobin ABG Sodium ABG Potassium ABG Chloride ABG Glucose Carboxyhemoglobin Sodium Potassium Chloride BUN Creatinine Glucose POC Glucose 168 H 206 H Calcium Phosphorus Magnesium AST ALT Total Creatine Kinase CK-MB (CK-2) Troponin T Total Protein Albumin HDL Cholesterol TSH Free T3 Index Arterial Blood Glucose Arterial Blood Ionized Calcium Urine pH Urine WBC (Auto) Urine Creatinine Acetaminophen Allied health notes reviewed: nursing
--- NOTE | 2021-05-04 16:56 | Progress Note ---
<JEREMYPURNIMA LeyvaElvia - Last Filed: 05/04/21 16:55> Assessment and Plan Assessment and plan: This is a 80-year-old female with HTN, DM, [place], breast CA s/p double mastectomy, TIA who presented with hypoglycemia, AMS who was admitted with SIRS, symptomatic bradycardia, acute metabolic encephalopathy, acute hypoxic respiratory failure, elevated TSH, hyperglycemia, hyponatremia, hypokalemia, ROJELIO and rhabdomyolysis Acute metabolic encephalopathy-persist Acute hypoxic respiratory failure (extubated 04/20)- Re-intubated secondary to Stridor and paradoxical breathing First-degree heart block Resolved ileus versus mechanical obstruction Acute kidney injury with vasomotor nephropathy UTI, Pseudomonas/ Earline Hypernatremia Hyperchloremia Elevated TSH Leukocytosis Mild rhabdomyolysis Hypertension Diabetes mellitus with hyperglycemia on admission CAD Hypothyrodisim Chronic illness debilitymyopathy Obesity -CCM, nephrology, neurology, cardiology consulted, patient recommendations -S/p D10 and D5W gtt, on TF -S/p IV calcium gluconate, regular insulin, D50 -S/p transcutaneous pacing, intermittent demand pacer in place -Renal ultrasound findings consistent with acute on chronic kidney disease, mildly complex right renal cyst -Blood pressure monitoring per protocol -Accu-Cheks every 6, SSI, long acting insulin -IV hydralazine as needed -04/25 EEG is mildly abnormal with mild slowing noted throughout the recording, suggestive of mild cortical dysfunction and/or drug effect -04/20 EEG shows mildly abnormal record due to diffuse background slowing noted throughout the recording, intermittent motion artifact, patient intubated and sedated at time of study, no sign of seizures as well epilepticus noted, possible toxic metabolic encephalopathy, drug effect, possible postictal state cannot be totally excluded. -Avoid ACEi/ARB in setting of ROJELIO -Avoid AV arron blocking agents -Avoid nephrotoxic agents and renally dose medications -BB, add home antihtn regimen as needed -TSH 14.1, T4 4.1, T3 pending-started on levothyroxine -Provegil -As needed racemic epinephrine -S/p steroids -Antibiotic therapy -Trend CBC, BMP DVT/GI prophylaxis: Heparin subcu, PPI, SCDs to bilateral lower extremities while in bed Disposition: ICU The high probability of a clinically significant, sudden or life threatening deterioration of the [PULMONARY, CARDIAC, RENAL] system(s) required my full and direct attention, intervention and personal management. The aggregate critical care time was [35] minutes. This time is in addition to time spent performing reported procedures but includes the following: [X] Data Review and interpretation [X] Patient assessment and monitoring of vital signs [X] Documentation [X] Medication orders and management History Interval history: This is a 80-year-old female with hypertension, diabetes mellitus, [place], breast cancer s/p double mastectomy, and a TIA who presented with hypoglycemia and altered mental status on 04/15 via EMS. Per EMS patient was unresponsive on their arrival and her blood glucose was 38 and she received 1 amp of dextrose patient continued to be unresponsive and only moaned with her eyes deviating to the left. Work-up in the emergency department revealed SIRS, symptomatic bradycardia, acute metabolic encephalopathy, acute hypoxic respiratory failure, elevated TSH, hyperglycemia, hyponatremia, hyperkalemia, acute kidney injury with ATN, and rhabdomyolysis 04/16: Neurology consulted, COVID-19 PCR negative, D10 drip decreased and eventually discontinued by [facility] and started on D5W for 1 L. Hydralazine as needed. Patient had hyper kalemia today and was treated with D50, insulin and Kayexalate. This time examination patient is on assist control tidal volume 450, rate of 16, PEEP of 6 and 25% FiO2. 04/17: Patient started on low-dose beta-angel per cardiology, CPAP trial again per [facility], BUN/creatinine holding steady and hypochloremia/hyponatremia slightly improved and hypokalemia has resolved. This morning a KUB was obtained which was concerning for ileus versus mechanical obstruction and surgery was consult ed. Patient was made n.p.o. and NG tube placed to wall suction. Patient was given suppository. Per RN patient did not have a BM even though she was given Kayexalate yesterday. Will obtain a KUB in the a.m. Neurology was consulted yesterday and will await further recommendations. Nephew updated at bedside today, Carlos Romero. 04/18: Neurology has ordered EEG/MRI B, [facility] continues to wean MV. Persistent low grade temperature so we will obtain BCx2/UA. Patient has improving leukocytosis, hyponatremia, renal function studies and hypochloremia. She has hypokalemia today which is being repleted. Surgery has signed off today and has okayed resumption of TF. [facility] will trial CPAP for longer today and plans to attempt extubation in AM. Family has requested transfer to [facility] and Dr. Gordon will attempt to contact transfer center. I updated her nephew, Carlos Romero over the phone today abouyt current events and update on transfer ([facility] will conduct a utilization review) 04/19: This morning patient is on CPAP trial at the time of examination, noted to be hypertensive and metoprolol increased to home dose, started on synthroid by [facility], lantus started re hyperglycemia, MRI completed with no acute findings. Severe hypokalemia (repleted and Mg pending). [facility] will contact CPAP trial again today with possible trial extubation tomorrow. 04/20: Patient's leukocytosis and kidney function tests continue to improve. Patient is hypertensive overnight we will restart home hydralazine. [facility] plans to extubate patient today. Family is attempting to transfer to another facility. EEG pending, RT will atmept to contact environmental services floor tech. Urine culture grew gram negative rods. Increase in lantus 04/21: Increase in Lantus, repleted phos. Patient has started this afternoon and was given racemic epinephrine and started on steroids. Patient will have BiPAP as needed. We will recheck BMP in the a.m. renal function studies continues to decrease. Patient has been hypertensive on evaluation regimen has been changed. 04/22: Lantus increased for hyperglycemia and add amlodipine for better BP control. Patient is on steroids. OT suctioned by RN with catheter in oral care kit and received copious amounts of secretions. Cr continues to decrease. Culture grew Pseudomonas and was changed in accordance to sensitivity. Kerr removed today after clearance from nephrology. 04/23: MRI of the brain was done and unremarkable. Will obtain reconsult to nephrology for further assistance as patient remains in profound encephalopathy despite improvement of blood sugar. Will repeat chest x-ray as patient does have significant congestion physical exam. Tube feeds still ongoing. Continue aspiration precautions. Continue antibiotics when completed for Pseudomonas management 04/24: Neurology input noted, patient unfortunately with no improvement mental status [place], continues with congestion, will defer with [employer] for lasix in the setting of renal failure. will give kayexlate for hyperkalemia, still moans and groans, mittens in place. 04/25: Patient currently intubated, on restraints for safety, Profund encephalopathy persist, although awake she is not following any commands, Call placed to [facility] to see if they will accept transfer for ENT evaluation, while CT neck was negative, it was degraded by motion and unable to determent why patient had this stridor, Racemic Epinephrine was given, [facility] is on ICU saturation, but will call back with an ENT to discuss case. Renal function mi ldly worse, continue to monitor. Per cardiology, no further arrhythmias noted since admission. Given short duration of atrial fibrillation, along with pt's age, renal fxn, and other co-morbidities,...will resume additional medical therapies for underlying severe multi-vessel CAD (bASA & Plavix). Pt has previously declined intervention of known lesions as per her Primary Carrier Associate. 04/26: Now with febrile illness, ?developing infection, start on empiric abx, check lactate level, blood cultures, continue management per Juvenile Court Judge, Monitor leukocytosis, agree with Trach, family updated about denials in transfer request from outside hospitals. 04/27: WBC improving some, still with fever despite antibotics, ID consulted. CXR clear, continue current management, Trach will be planned if ok with family. Blood sugar remains elevated, will adjust insulin LANTUS to 40 units. Patient had previously completed Cefepime. Mental status remains unchanged, still moves upper ext. continue restraints 04/28: Continue supportive care. No new fever noted. Critical care physician will determine if patient should be have a trial of extubation again or if we should proceed straight to trach. Again continue to monitor mental status for complete improvement. 04/29: Per Juvenile Court Judge discussion with family, will proceed to Tracheostomy, Patients mental status still fluctuating, Continue current management. Surgeon consulted. 04/30: General surgery consulted for trach, continue to trend CBC and BMP. Kidney function slightly worsened today. Increase in Lantus. Tmax 100.2, per ID will consider imaging if leukocytosis remains elevated with fevers. Plavix held for possible tracheostomy next week. 05/01: Patient fever curve is trending down with improving leukocytosis. Patient renal function worsened today. She remains hyperglycemic and her Lantus was increased to her home dose of Novolin 70/30. Patient was rate controlled yesterday due to T-max of 101. She remains on CMV tidal volume 450, rate of 10, PEEP of 6 and 30% FiO2. We will increase the water flushes given slight hypernatremia. Dr. Andrea updated nephew (Carlos) at bedside. CPAP trails. 05/02: Patient's hypernatremia and hyperchloremia slightly worsened and femur fractures were increased. Kidney functions remain the same however BUN is in the 100s. Nephrology is following. Kerr catheter was removed. Awaiting trach placement with possibility on Friday. 05/03: Patient grew Earline in her urine culture however per ID and the Kerr was already exchanged. Patient is on cefepime and Flagyl. Plavix still on hold a waiting trach. [facility] started the patient on half-normal saline at 75 mL/h for 2 L related to azatoma and hypernatremia. Patient mental status continues to wax and wane. Creatinine is 3.1 today from 3.4 yesterday. Patient had a bowel movement today. Patient remains hyperglycemic and Lantus was changed from a.m. to p.m.. 05/04: Patient's renal function is improving, surgery obtain consent for trach/PEG scheduled for 05/07, antibiotics to end tomorrow. We will obtain BMP in the a.m. Lantus dosage change from AC to at bedtime in hopes of better glycemic control. Hospitalist Physical - Constitutional Vitals: Temp Pulse Resp BP Pulse Ox 98.0 F 68 18 121/66 100 05/04/21 11:44 05/04/21 16:07 05/04/21 16:07 05/04/21 16:01 05/04/21 16:07 General appearance: Present: no acute distress, other - EENT Eyes: Present: PERRL, EOM intact ENT: poor dentition - Neck Neck: Present: normal ROM - Respiratory Respiratory effort: normal Respiratory: bilateral: CTA - Cardiovascular Rhythm: regular Heart Sounds: Present: S1 & S2. Absent: systolic murmur, diastolic murmur - Extremities Extremities: no ischemia, pulses intact, pulses symmetrical, No edema, normal temperature, normal color Peripheral Pulses: within normal limits - Abdominal General gastrointestinal: soft, non-tender, non-distended, normal bowel sounds - Integumentary Integumentary: Present: warm, dry - Psychiatric Psychiatric: cooperative - Neurologic Neurologic: moves all extremities - Allied Health Allied health notes reviewed: nursing, RT HEART Score - HEART Score Troponin: Troponin T 0.065 ng/mL (0.00-0.029) H 04/20/21 03:32 Results - Labs CBC & Chem 7: 05/04/21 04:57 05/04/21 04:57 Labs: Laboratory Last Values WBC 10.2 K/mm3 (4.5-11.0) 05/04/21 04:57 RBC 2.61 M/mm3 (3.65-5.03) L 05/04/21 04:57 Hgb 8.2 gm/dl (10.1-14.3) L 05/04/21 04:57 Hct 25.4 % (30.3-42.9) L 05/04/21 04:57 MCV 98 fl (79-97) H 05/04/21 04:57 MCH 31 pg (28-32) 05/04/21 04:57 MCHC 32 % (30-34) 05/04/21 04:57 RDW 15.3 % (13.2-15.2) H 05/04/21 04:57 Plt Count 321 K/mm3 (140-440) 05/04/21 04:57 Lymph % (Auto) 12.8 % (13.4-35.0) L 04/15/21 17:20 [place] % (Auto) 4.1 % (0.0-7.3) 04/15/21 17:20 Eos % (Auto) 0.3 % (0.0-4.3) 04/15/21 17:20 Baso % (Auto) 0.4 % (0.0-1.8) 04/15/21 17:20 Lymph # (Auto) 1.4 K/mm3 (1.2-5.4) 04/15/21 17:20 [place] # (Auto) 0.5 K/mm3 (0.0-0.8) 04/15/21 17:20 Eos # (Auto) 0.0 K/mm3 (0.0-0.4) 04/15/21 17:20 Baso # (Auto) 0.0 K/mm3 (0.0-0.1) 04/15/21 17:20 Add Manual Diff Complete 05/01/21 07:11 Total Counted 100 05/01/21 07:11 Seg Neutrophils % 82.4 % (40.0-70.0) H 04/15/21 17:20 Seg Neuts % (Manual) 80.0 % (40.0-70.0) H 05/01/21 07:11 Band Neutrophils % 7.0 % 05/01/21 07:11 Lymphocytes % (Manual) 5.0 % (13.4-35.0) L 05/01/21 07:11 Monocytes % (Manual) 6.0 % (0.0-7.3) 05/01/21 07:11 Eosinophils % (Manual) 1.0 % (0.0-4.3) 05/01/21 07:11 Metamyelocytes % 1.0 % 05/01/21 07:11 Nucleated RBC % Not Reportable 05/01/21 07:11 Seg Neutrophils # 9.3 K/mm3 (1.8-7.7) H 04/15/21 17:20 Seg Neutrophils # Man 9.8 K/mm3 (1.8-7.7) H 05/01/21 07:11 Band Neutrophils # 0.9 K/mm3 05/01/21 07:11 Lymphocytes # (Manual) 0.6 K/mm3 (1.2-5.4) L 05/01/21 07:11 Abs React Lymphs (Man) 0.0 K/mm3 05/01/21 07:11 Monocytes # (Manual) 0.7 K/mm3 (0.0-0.8) 05/01/21 07:11 Eosinophils # (Manual) 0.1 K/mm3 (0.0-0.4) 05/01/21 07:11 Basophils # (Manual) 0.0 K/mm3 (0.0-0.1) 05/01/21 07:11 Metamyelocytes # 0.1 K/mm3 05/01/21 07:11 Myelocytes # 0.0 K/mm3 05/01/21 07:11 Promyelocytes # 0.0 K/mm3 05/01/21 07:11 Blast Cells # 0.0 K/mm3 05/01/21 07:11 WBC Morphology Not Reportable 05/01/21 07:11 Hypersegmented Neuts Not Reportable 05/01/21 07:11 Hyposegmented Neuts Not Reportable 05/01/21 07:11 Hypogranular Neuts Not Reportable 05/01/21 07:11 Smudge Cells Not Reportable 05/01/21 07:11 Toxic Granulation Not Reportable 05/01/21 07:11 Toxic Vacuolation Not Reportable 05/01/21 07:11 Dohle Bodies Not Reportable 05/01/21 07:11 Pelger-Huet Anomaly Not Reportable 05/01/21 07:11 Peterson Rods Not Reportable 05/01/21 07:11 Platelet Estimate Consistent w auto 05/01/21 07:11 Clumped Platelets Not Reportable 05/01/21 07:11 Plt Clumps, EDTA Not Reportable 05/01/21 07:11 Large Platelets Not Reportable 05/01/21 07:11 Giant Platelets Not Reportable 05/01/21 07:11 Platelet Satelliting Not Reportable 05/01/21 07:11 Plt Morphology Comment Not Reportable 05/01/21 07:11 RBC Morphology Normal 05/01/21 07:11 Dimorphic RBCs Not Reportable 05/01/21 07:11 Polychromasia Not Reportable 05/01/21 07:11 Hypochromasia Not Reportable 05/01/21 07:11 Poikilocytosis Not Reportable 05/01/21 07:11 Anisocytosis Not Reportable 05/01/21 07:11 Microcytosis Not Reportable 05/01/21 07:11 Macrocytosis Not Reportable 05/01/21 07:11 Spherocytes Not Reportable 05/01/21 07:11 Pappenheimer Bodies Not Reportable 05/01/21 07:11 Sickle Cells Not Reportable 05/01/21 07:11 Target Cells Not Reportable 05/01/21 07:11 Tear Drop Cells Not Reportable 05/01/21 07:11 Ovalocytes Not Reportable 05/01/21 07:11 Helmet Cells Not Reportable 05/01/21 07:11 Law-Pisek Bodies Not Reportable 05/01/21 07:11 [place] Rings Not Reportable 05/01/21 07:11 Theo Cells Not Reportable 05/01/21 07:11 Bite Cells Not Reportable 05/01/21 07:11 Crenated Cell Not Reportable 05/01/21 07:11 Elliptocytes Not Reportable 05/01/21 07:11 Acanthocytes (Spur) Not Reportable 05/01/21 07:11 Rouleaux Not Reportable 05/01/21 07:11 Hemoglobin C Crystals Not Reportable 05/01/21 07:11 Schistocytes Not Reportable 05/01/21 07:11 Malaria parasites Not Reportable 05/01/21 07:11 James Bodies Not Reportable 05/01/21 07:11 Hem Pathologist Commnt No 05/01/21 07:11 PT 12.2 Sec. (12.2-14.9) 04/15/21 17:20 INR 0.91 (0.87-1.13) 04/15/21 17:20 APTT 31.8 Sec. (24.2-36.6) 04/15/21 17:20 ABG pH 7.531 (7.320-7.450) H 05/03/21 03:57 POC ABG pCO2 31.0 mmHg (32.0-48.0) L 05/03/21 03:57 POC ABG pO2 64.3 mmHg (83-108) L 05/03/21 03:57 POC ABG HCO3 25.4 05/03/21 03:57 ABG O2 Saturation 93.5 (0-100) 05/03/21 03:57 POC ABG Base Excess 2.9 05/03/21 03:57 ABG Hemoglobin 9.0 (12.0-17.5) L 05/03/21 03:57 ABG Oxyhemoglobin 92.6 (94-98) L 05/03/21 03:57 ABG Methemoglobin 0.3 (0.0-1.5) 05/03/21 03:57 ABG Sodium 145.7 mmol/L (136.0-145.0) H 05/03/21 03:57 ABG Potassium 4.1 mmol/L (3.40-4.50) 05/03/21 03:57 ABG Chloride 112.0 mmol/L (98-107) H 05/03/21 03:57 ABG Glucose 202 mg/dL (65-95) H 05/03/21 03:57 Carboxyhemoglobin 0.7 (0.5-1.5) 05/03/21 03:57 FiO2 % 30.0 05/03/21 03:57 Sodium 147 mmol/L (137-145) H 05/04/21 04:57 Potassium 4.3 mmol/L (3.6-5.0) 05/04/21 04:57 Chloride 111.0 mmol/L (98-107) H 05/04/21 04:57 Carbon Dioxide 26 mmol/L (22-30) 05/04/21 04:57 Anion Gap 14 mmol/L 05/04/21 04:57 BUN 104 mg/dL (7-17) H 05/04/21 04:57 Creatinine 2.8 mg/dL (0.6-1.2) H 05/04/21 04:57 Estimated GFR 20 ml/min 05/04/21 04:57 BUN/Creatinine Ratio 37 % 05/04/21 04:57 Glucose 179 mg/dL (65-100) H 05/04/21 04:57 POC Glucose 206 mg/dL (70-105) H 05/04/21 11:28 Lactic Acid 1.10 mmol/L (0.7-2.0) 04/26/21 09:30 Calcium 8.8 mg/dL (8.4-10.2) 05/04/21 04:57 Phosphorus 2.60 mg/dL (2.5-4.5) 04/22/21 08:00 Magnesium 2.10 mg/dL (1.7-2.3) 04/23/21 07:02 Total Bilirubin 0.30 mg/dL (0.1-1.2) 04/28/21 04:13 Direct Bilirubin < 0.2 mg/dL (0-0.2) 04/28/21 04:13 Indirect Bilirubin 0.1 mg/dL 04/28/21 04:13 AST 61 units/L (5-40) H 04/28/21 04:13 ALT 64 units/L (7-56) H 04/28/21 04:13 Alkaline Phosphatase 95 units/L (35-129) 04/28/21 04:13 Ammonia 46.0 umol/L (25-60) 04/15/21 17:20 Total Creatine Kinase 427 units/L (30-135) H 04/18/21 05:34 CK-MB (CK-2) 9.1 ng/mL (0.0-4.0) H 04/17/21 15:35 CK-MB (CK-2) Rel Index 1.4 (0-4) 04/17/21 15:35 Troponin T 0.065 ng/mL (0.00-0.029) H 04/20/21 03:32 NT-Pro-B Natriuret Pep 697.9 pg/mL (0-900) 04/15/21 17:20 Total Protein 6.2 g/dL (6.3-8.2) L 04/28/21 04:13 Albumin 2.6 g/dL (3.9-5) L 04/28/21 04:13 Albumin/Globulin Ratio 0.7 % 04/28/21 04:13 Triglycerides 103 mg/dL (2-149) 04/17/21 05:04 Cholesterol 122 mg/dL (50-199) 04/17/21 05:04 LDL Cholesterol Direct 55 mg/dL (50-130) 04/17/21 05:04 HDL Cholesterol 61 mg/dL (40-59) H 04/17/21 05:04 Cholesterol/HDL Ratio 2.00 % 04/17/21 05:04 Procalcitonin 0.20 ng/mL (<0.15) 04/16/21 19:01 TSH 14.190 mlU/mL (0.270-4.200) H 04/15/21 17:20 Thyroxine (T4) 4.1 ug/dL (4.0-12.0) 04/16/21 19:01 Free T3 Index 1.1 pg/mL (2.3-4.2) L 04/16/21 19:01 Arterial Blood Glucose 202 mg/dL (65-95) H 05/03/21 03:57 Arterial Blood Ionized Calcium 5.0 mg/dL (4.6-5.3) 05/03/21 03:57 Urine Color Yellow (Yellow) 04/30/21 17:45 Urine Turbidity Cloudy (Clear) 04/30/21 17:45 Urine pH 5.0 (5.0-7.0) 04/30/21 17:45 Ur Specific [place] 1.016 (1.003-1.030) 04/30/21 17:45 Urine Protein 100 mg/dl mg/dL (Negative) 04/30/21 17:45 Urine Glucose (UA) Neg mg/dL (Negative) 04/30/21 17:45 Urine Ketones Neg mg/dL (Negative) 04/30/21 17:45 Urine Blood Mod (Negative) 04/30/21 17:45 Urine Nitrite Neg (Negative) 04/30/21 17:45 Urine Bilirubin Neg (Negative) 04/30/21 17:45 Urine Urobilinogen < 2.0 mg/dL (<2.0) 04/30/21 17:45 Ur Leukocyte Esterase Mod (Negative) 04/30/21 17:45 Urine WBC (Auto) 48.0 /HPF (0.0-6.0) H 04/30/21 17:45 Urine RBC (Auto) 103.0 /HPF (0.0-6.0) 04/30/21 17:45 U Epithel Cells (Auto) < 1.0 /HPF (0-13.0) 04/16/21 00:09 Urine Bacteria (Auto) 1+ /HPF (Negative) 04/16/21 00:09 Urine Mucus Few /HPF 04/30/21 17:45 Urine Yeast (Budding) 3+ /HPF 04/30/21 17:45 Urine Creatinine 24.4 mg/dL (0.1-20.0) H 04/16/21 00:12 Urine Sodium 97 mmol/L 04/16/21 00:12 Random Vancomycin 15.5 ug/mL (0-40.0) 04/27/21 07:52 Salicylates 4.1 mg/dL (2.8-20.0) 04/15/21 17:20 Acetaminophen 5.0 ug/mL (10.0-30.0) L 04/15/21 17:20 Plasma/Serum Alcohol 0.02 % (0-0.07) 04/15/21 17:20 Coronavirus (PCR) Negative (Negative) 04/16/21 Unknown Microbiology: Microbiology 04/30/21 16:07 Peripheral/Venous Blood Culture - Preliminary NO GROWTH AFTER 72 HOURS 04/30/21 16:07 Peripheral/Venous Blood Culture - Preliminary NO GROWTH AFTER 72 HOURS Kerr/IV: Voiding Method External Female Catheter Active Medications - Current Medications Current Medications: Generic Name Dose Route Start Last Admin Trade Name Freq PRN Reason Stop Dose Admin Acetaminophen 650 mg 04/15/21 19:11 04/30/21 20:14 Acetaminophen 325 Mg Tab PO 650 mg Q6H PRN Administration Pain MILD(1-3)/Fever >100.5/SEXTON Albuterol/Ipratropium 1 ampul 04/24/21 14:00 05/04/21 13:40 Ipratropium/Albuterol Sulfate 3 Ml Ampul.Neb IH 1 ampul Q6HRT WOLFGANG Administration Amlodipine Besylate 10 mg 04/25/21 10:00 05/04/21 09:27 Amlodipine 10 Mg Tab PO 10 mg DAILY WOLFGANG Administration Lipase/Protease/Amylase 1 each 04/16/21 12:52 Lipase 10,500/Protease 25,000/Amylase 43,750 (Units) Dr Simpson FEEDTUBE PRN PRN For Clogged Feeding Tube Aspirin 81 mg 04/25/21 10:00 05/04/21 09:26 Aspirin 81 Mg Tab Chew PO 81 mg QDAY WOLFGANG Administration Bisacodyl 10 mg 04/17/21 11:01 05/03/21 09:50 Bisacodyl 10 Mg Rect Supp MT 10 mg QDAY PRN Administration Constipation Brimonidine Tartrate 1 drops 04/17/21 22:00 05/04/21 09:25 Brimonidine 0.15% Ophth Soln OU 1 drops BID WOLFGANG Administration Docusate Sodium 100 mg 04/29/21 15:00 05/04/21 09:31 Docusate Sodium 100 Mg/10 Ml Oral Liqd PO 100 mg BID WOLFGANG Administration Epinephrine 0.5 ml 04/21/21 12:56 Epinephrine Racemic 2.25% 0.5ml Nebu IH Q4HRT PRN Shortness Of Breath Famotidine 20 mg 04/17/21 10:00 05/04/21 09:26 Famotidine 20 Mg Tab PO 20 mg DAILY WOLFGANG Administration Fentanyl 50 mcg 04/24/21 13:03 Fentanyl 100 Mcg/2 Ml Inj IV Q10MIN PRN ANALGESIA Heparin Sodium (Porcine) 5,000 unit 04/15/21 22:00 05/04/21 09:27 Heparin 5,000 Unit/1 Ml Vial SUB-Q 5,000 unit Q12HR WOLFGANG Administration Hydralazine HCl 10 mg 04/16/21 18:00 04/24/21 05:25 Hydralazine 20 Mg/1 Ml Inj IV 10 mg Q4HR PRN Administration Hypertension Hydralazine HCl 50 mg 05/03/21 14:00 05/04/21 14:23 Hydralazine 25 Mg Tab PO 50 mg Q8HR WOLFGANG Administration Hydrophilic Ointment 1 applic 04/15/21 17:24 Lip Therapy Vaseline TP Q2HR PRN Dry Lips Fentanyl Citrate 2,000 mcg in 100 mls @ 4.765 mls/hr 04/24/21 14:00 04/25/21 09:15 Fentanyl Drip Premix IV 0 mcg/kg/hr TITR WOLFGANG 0 mls/hr Titration Protocol 1 MCG/KG/HR Propofol 1,000 mg in 100 mls @ 2.859 mls/hr 04/24/21 14:00 04/25/21 09:10 Diprivan 10 Mg/Ml IV 0 mcg/kg/min TITR WOLFGANG 0 mls/hr Titration Protocol 5 MCG/KG/MIN Metronidazole 500 mg in 100 mls @ 100 mls/hr 04/30/21 12:00 05/04/21 14:22 Flagyl 500 Mg/100 Ml IV 05/05/21 04:59 100 mls/hr Q8H WOLFGANG Administration Protocol Cefepime HCl 2 gm in 100 mls @ 200 mls/hr 05/03/21 18:00 05/03/21 18:02 Cefepime/Ns 2 Gm/100 Ml IV 05/05/21 18:29 200 mls/hr Q24H WOLFGANG Administration Protocol Sodium Chloride 1,000 mls @ 75 mls/hr 05/03/21 14:00 05/04/21 04:13 Nacl 0.45% 1000 Ml IV 05/05/21 03:19 75 mls/hr DIRECT WOLFGANG Administration Insulin Glargine 52 units 05/04/21 22:00 Insulin Glargine 100 Units/Ml SUB-Q QHS WOLFGANG Insulin Human Lispro 0 unit 04/16/21 15:00 05/04/21 14:22 Insulin Lispro 100 Unit/Ml SUB-Q 4 unit Q6HR WOLFGANG Administration Protocol Latanoprost 1 drops 04/17/21 18:00 05/03/21 18:03 Latanoprost 0.005% Ophth Soln 2.5 Ml OU 1 drops QPM WOLFGANG Administration Levothyroxine Sodium 25 mcg 04/19/21 06:00 05/04/21 04:59 Levothyroxine 25 Mcg Tab PO 25 mcg DAILY@0600 WOLFGANG Administration Metoprolol Tartrate 25 mg 04/19/21 10:00 05/04/21 09:26 Metoprolol Tartrate 25 Mg Tab PO 25 mg BID WOLFGANG Administration Multi-Ingred Cream/Lotion/Oil/Oint 1 applic 04/15/21 17:24 05/04/21 09:25 Mineral Oil/Petrolatum, White Ophth Oint 3.5 Gm OU 1 applic Q4HR PRN Administration Dry Eye(s) Pravastatin Sodium 20 mg 04/19/21 22:00 05/03/21 21:37 Pravastatin 20 Mg Tab PO 20 mg QHS WOLFGANG Administration Scopolamine 1 each 04/20/21 18:00 05/02/21 09:14 Scopolamine Transdermal Patch 72 Hr TD 1 each Q3D WOLFGANG Administration Simple Syrup 15 ml 04/16/21 12:52 Simple Syrup 15 Ml FEEDTUBE PRN PRN Hypoglycemia Simple Syrup 30 ml 04/16/21 12:52 Simple Syrup 15 Ml FEEDTUBE PRN PRN Hypoglycemia Sodium Bicarbonate 325 mg 04/16/21 12:52 Sodium Bicarbonate 325 Mg Tab FEEDTUBE PRN PRN For Clogged Feeding Tube Sodium Chloride 10 ml 04/15/21 22:00 05/04/21 09:31 Sodium Chloride 0.9% 10 Ml Flush Syringe IV 10 ml BID WOLFGANG Administration Sodium Chloride 10 ml 04/15/21 19:11 04/24/21 05:27 Sodium Chloride 0.9% 10 Ml Flush Syringe IV 10 ml PRN PRN Administration LINE FLUSH Tamsulosin HCl 0.4 mg 04/25/21 14:00 05/04/21 09:27 Tamsulosin 0.4 Mg Cap PO 0.4 mg QDAY WOLFGANG Administration Timolol Maleate 1 drops 04/19/21 10:00 05/04/21 09:25 Timolol 0.5% Ophth Soln 5 Ml OU 1 drops QDAY WOLFGANG Administration Nutrition/Malnutrition Assess - Dietary Evaluation Nutrition/Malnutrition Findings: Nutrition Notes Start: 04/16/21 12:31 Freq: Status: Active Protocol: Document 04/30/21 09:36 LP (Rec: 04/30/21 09:39 LP [id number]) Nutrition Notes Initial or Follow up Reassessment Current Diagnosis Acute Kidney Injury,Coronary Artery Disease,Diabetes, Hypertension Other Pertinent Diagnosis UTI, acute metabolic encephalopathy Current Diet Glucerna 1.2 at 50ml/hr Labs/Tests BUN 118 Cr 3.3 BG 263 Pertinent Medications Reviewed Height 5 ft 6 in Weight 93 kg [place] Body Weight (kg) 59.09 BMI 33.0 Weight Status Obese Subjective/Other Information Pt tolerating TF at goal rate. Pt on vent. Percent of energy/protein needs met: 100% energy 61% pro Burn Absent Trauma Absent Difficulty In Swallowing Current % PO Negligible Minimum of two criteria No physical signs of malnutrition #1 Nutrition Diagnosis Inadequate oral intake Diagnosis Progress(for reassessment Continues documentation) Is patient on ventilator? Yes Is Patient Ambulatory and/or Out of Bed No REE-([facility]-confined to bed) 1700.760 Kcal/Kg value to use for calculation 15 Approximate Energy Requirements Using 1395 kcal/Kg Calculation Used for Recommendations Kcal/kg Additional Notes Pro needs >2g/kg IBW: >118g/ day Fluid needs 1ml/kcal Nutrition Intervention Change Diet Order: TF Nutrition Support: Continue Glucerna 1.2 at 50ml/ hr with 50ml water flush q4h. Kcal 1,440 Protein (gm) 72 Fluid (mL) 966 Goal #1 TF tolerance Goal #2 TF to meet energy and pro needs as best possible Anticipated Discharge Needs: unable to determine at this time Follow-Up By: 05/07/21 Additional Comments Follow for stable TF <SONI DUTTA - Last Filed: 05/04/21 21:26> History Interval history: This is a 80-year-old female with HTN, DM, [place], breast CA s/p double mastectomy, TIA who presented with hypoglycemia, AMS who was admitted with SIRS, symptomatic bradycardia, acute metabolic encephalopathy, acute hypoxic respiratory failure, elevated TSH, hyperglycemia, hyponatremia, hypokalemia, ROJELIO and rhabdomyolysis. Acute hypoxic respiratory failure (extubated 04/20)- Re-intubated secondary to Stridor and paradoxical breathing. I saw and evaluated the patient and discussed with Nurse Practitioner. I agree with the findings and the plan of care as documented in the Nurse Practitioner's note. Hospitalist Physical - Constitutional Vitals: Temp Pulse Resp BP Pulse Ox 98.3 F 73 20 123/54 100 05/04/21 20:00 05/04/21 19:56 05/04/21 19:56 05/04/21 19:54 05/04/21 19:54 HEART Score - HEART Score Troponin: Troponin T 0.065 ng/mL (0.00-0.029) H 04/20/21 03:32 Results - Labs CBC & Chem 7: 05/04/21 04:57 05/04/21 04:57 Labs: Laboratory Last Values WBC 10.2 K/mm3 (4.5-11.0) 05/04/21 04:57 RBC 2.61 M/mm3 (3.65-5.03) L 05/04/21 04:57 Hgb 8.2 gm/dl (10.1-14.3) L 05/04/21 04:57 Hct 25.4 % (30.3-42.9) L 05/04/21 04:57 MCV 98 fl (79-97) H 05/04/21 04:57 MCH 31 pg (28-32) 05/04/21 04:57 MCHC 32 % (30-34) 05/04/21 04:57 RDW 15.3 % (13.2-15.2) H 05/04/21 04:57 Plt Count 321 K/mm3 (140-440) 05/04/21 04:57 Lymph % (Auto) 12.8 % (13.4-35.0) L 04/15/21 17:20 [place] % (Auto) 4.1 % (0.0-7.3) 04/15/21 17:20 Eos % (Auto) 0.3 % (0.0-4.3) 04/15/21 17:20 Baso % (Auto) 0.4 % (0.0-1.8) 04/15/21 17:20 Lymph # (Auto) 1.4 K/mm3 (1.2-5.4) 04/15/21 17:20 [place] # (Auto) 0.5 K/mm3 (0.0-0.8) 04/15/21 17:20 Eos # (Auto) 0.0 K/mm3 (0.0-0.4) 04/15/21 17:20 Baso # (Auto) 0.0 K/mm3 (0.0-0.1) 04/15/21 17:20 Add Manual Diff Complete 05/01/21 07:11 Total Counted 100 05/01/21 07:11 Seg Neutrophils % 82.4 % (40.0-70.0) H 04/15/21 17:20 Seg Neuts % (Manual) 80.0 % (40.0-70.0) H 05/01/21 07:11 Band Neutrophils % 7.0 % 05/01/21 07:11 Lymphocytes % (Manual) 5.0 % (13.4-35.0) L 05/01/21 07:11 Monocytes % (Manual) 6.0 % (0.0-7.3) 05/01/21 07:11 Eosinophils % (Manual) 1.0 % (0.0-4.3) 05/01/21 07:11 Metamyelocytes % 1.0 % 05/01/21 07:11 Nucleated RBC % Not Reportable 05/01/21 07:11 Seg Neutrophils # 9.3 K/mm3 (1.8-7.7) H 04/15/21 17:20 Seg Neutrophils # Man 9.8 K/mm3 (1.8-7.7) H 05/01/21 07:11 Band Neutrophils # 0.9 K/mm3 05/01/21 07:11 Lymphocytes # (Manual) 0.6 K/mm3 (1.2-5.4) L 05/01/21 07:11 Abs React Lymphs (Man) 0.0 K/mm3 05/01/21 07:11 Monocytes # (Manual) 0.7 K/mm3 (0.0-0.8) 05/01/21 07:11 Eosinophils # (Manual) 0.1 K/mm3 (0.0-0.4) 05/01/21 07:11 Basophils # (Manual) 0.0 K/mm3 (0.0-0.1) 05/01/21 07:11 Metamyelocytes # 0.1 K/mm3 05/01/21 07:11 Myelocytes # 0.0 K/mm3 05/01/21 07:11 Promyelocytes # 0.0 K/mm3 05/01/21 07:11 Blast Cells # 0.0 K/mm3 05/01/21 07:11 WBC Morphology Not Reportable 05/01/21 07:11 Hypersegmented Neuts Not Reportable 05/01/21 07:11 Hyposegmented Neuts Not Reportable 05/01/21 07:11 Hypogranular Neuts Not Reportable 05/01/21 07:11 Smudge Cells Not Reportable 05/01/21 07:11 Toxic Granulation Not Reportable 05/01/21 07:11 Toxic Vacuolation Not Reportable 05/01/21 07:11 Dohle Bodies Not Reportable 05/01/21 07:11 Pelger-Huet Anomaly Not Reportable 05/01/21 07:11 Peterson Rods Not Reportable 05/01/21 07:11 Platelet Estimate Consistent w auto 05/01/21 07:11 Clumped Platelets Not Reportable 05/01/21 07:11 Plt Clumps, EDTA Not Reportable 05/01/21 07:11 Large Platelets Not Reportable 05/01/21 07:11 Giant Platelets Not Reportable 05/01/21 07:11 Platelet Satelliting Not Reportable 05/01/21 07:11 Plt Morphology Comment Not Reportable 05/01/21 07:11 RBC Morphology Normal 05/01/21 07:11 Dimorphic RBCs Not Reportable 05/01/21 07:11 Polychromasia Not Reportable 05/01/21 07:11 Hypochromasia Not Reportable 05/01/21 07:11 Poikilocytosis Not Reportable 05/01/21 07:11 Anisocytosis Not Reportable 05/01/21 07:11 Microcytosis Not Reportable 05/01/21 07:11 Macrocytosis Not Reportable 05/01/21 07:11 Spherocytes Not Reportable 05/01/21 07:11 Pappenheimer Bodies Not Reportable 05/01/21 07:11 Sickle Cells Not Reportable 05/01/21 07:11 Target Cells Not Reportable 05/01/21 07:11 Tear Drop Cells Not Reportable 05/01/21 07:11 Ovalocytes Not Reportable 05/01/21 07:11 Helmet Cells Not Reportable 05/01/21 07:11 Law-Pisek Bodies Not Reportable 05/01/21 07:11 [place] Rings Not Reportable 05/01/21 07:11 Theo Cells Not Reportable 05/01/21 07:11 Bite Cells Not Reportable 05/01/21 07:11 Crenated Cell Not Reportable 05/01/21 07:11 Elliptocytes Not Reportable 05/01/21 07:11 Acanthocytes (Spur) Not Reportable 05/01/21 07:11 Rouleaux Not Reportable 05/01/21 07:11 Hemoglobin C Crystals Not Reportable 05/01/21 07:11 Schistocytes Not Reportable 05/01/21 07:11 Malaria parasites Not Reportable 05/01/21 07:11 James Bodies Not Reportable 05/01/21 07:11 Hem Pathologist Commnt No 05/01/21 07:11 PT 12.2 Sec. (12.2-14.9) 04/15/21 17:20 INR 0.91 (0.87-1.13) 04/15/21 17:20 APTT 31.8 Sec. (24.2-36.6) 04/15/21 17:20 ABG pH 7.531 (7.320-7.450) H 05/03/21 03:57 POC ABG pCO2 31.0 mmHg (32.0-48.0) L 05/03/21 03:57 POC ABG pO2 64.3 mmHg (83-108) L 05/03/21 03:57 POC ABG HCO3 25.4 05/03/21 03:57 ABG O2 Saturation 93.5 (0-100) 05/03/21 03:57 POC ABG Base Excess 2.9 05/03/21 03:57 ABG Hemoglobin 9.0 (12.0-17.5) L 05/03/21 03:57 ABG Oxyhemoglobin 92.6 (94-98) L 05/03/21 03:57 ABG Methemoglobin 0.3 (0.0-1.5) 05/03/21 03:57 ABG Sodium 145.7 mmol/L (136.0-145.0) H 05/03/21 03:57 ABG Potassium 4.1 mmol/L (3.40-4.50) 05/03/21 03:57 ABG Chloride 112.0 mmol/L (98-107) H 05/03/21 03:57 ABG Glucose 202 mg/dL (65-95) H 05/03/21 03:57 Carboxyhemoglobin 0.7 (0.5-1.5) 05/03/21 03:57 FiO2 % 30.0 05/03/21 03:57 Sodium 147 mmol/L (137-145) H 05/04/21 04:57 Potassium 4.3 mmol/L (3.6-5.0) 05/04/21 04:57 Chloride 111.0 mmol/L (98-107) H 05/04/21 04:57 Carbon Dioxide 26 mmol/L (22-30) 05/04/21 04:57 Anion Gap 14 mmol/L 05/04/21 04:57 BUN 104 mg/dL (7-17) H 05/04/21 04:57 Creatinine 2.8 mg/dL (0.6-1.2) H 05/04/21 04:57 Estimated GFR 20 ml/min 05/04/21 04:57 BUN/Creatinine Ratio 37 % 05/04/21 04:57 Glucose 179 mg/dL (65-100) H 05/04/21 04:57 POC Glucose 213 mg/dL (70-105) H 05/04/21 17:02 Lactic Acid 1.10 mmol/L (0.7-2.0) 04/26/21 09:30 Calcium 8.8 mg/dL (8.4-10.2) 05/04/21 04:57 Phosphorus 2.60 mg/dL (2.5-4.5) 04/22/21 08:00 Magnesium 2.10 mg/dL (1.7-2.3) 04/23/21 07:02 Total Bilirubin 0.30 mg/dL (0.1-1.2) 04/28/21 04:13 Direct Bilirubin < 0.2 mg/dL (0-0.2) 04/28/21 04:13 Indirect Bilirubin 0.1 mg/dL 04/28/21 04:13 AST 61 units/L (5-40) H 04/28/21 04:13 ALT 64 units/L (7-56) H 04/28/21 04:13 Alkaline Phosphatase 95 units/L (35-129) 04/28/21 04:13 Ammonia 46.0 umol/L (25-60) 04/15/21 17:20 Total Creatine Kinase 427 units/L (30-135) H 04/18/21 05:34 CK-MB (CK-2) 9.1 ng/mL (0.0-4.0) H 04/17/21 15:35 CK-MB (CK-2) Rel Index 1.4 (0-4) 04/17/21 15:35 Troponin T 0.065 ng/mL (0.00-0.029) H 04/20/21 03:32 NT-Pro-B Natriuret Pep 697.9 pg/mL (0-900) 04/15/21 17:20 Total Protein 6.2 g/dL (6.3-8.2) L 04/28/21 04:13 Albumin 2.6 g/dL (3.9-5) L 04/28/21 04:13 Albumin/Globulin Ratio 0.7 % 04/28/21 04:13 Triglycerides 103 mg/dL (2-149) 04/17/21 05:04 Cholesterol 122 mg/dL (50-199) 04/17/21 05:04 LDL Cholesterol Direct 55 mg/dL (50-130) 04/17/21 05:04 HDL Cholesterol 61 mg/dL (40-59) H 04/17/21 05:04 Cholesterol/HDL Ratio 2.00 % 04/17/21 05:04 Procalcitonin 0.20 ng/mL (<0.15) 04/16/21 19:01 TSH 14.190 mlU/mL (0.270-4.200) H 04/15/21 17:20 Thyroxine (T4) 4.1 ug/dL (4.0-12.0) 04/16/21 19:01 Free T3 Index 1.1 pg/mL (2.3-4.2) L 04/16/21 19:01 Arterial Blood Glucose 202 mg/dL (65-95) H 05/03/21 03:57 Arterial Blood Ionized Calcium 5.0 mg/dL (4.6-5.3) 05/03/21 03:57 Urine Color Yellow (Yellow) 04/30/21 17:45 Urine Turbidity Cloudy (Clear) 04/30/21 17:45 Urine pH 5.0 (5.0-7.0) 04/30/21 17:45 Ur Specific [place] 1.016 (1.003-1.030) 04/30/21 17:45 Urine Protein 100 mg/dl mg/dL (Negative) 04/30/21 17:45 Urine Glucose (UA) Neg mg/dL (Negative) 04/30/21 17:45 Urine Ketones Neg mg/dL (Negative) 04/30/21 17:45 Urine Blood Mod (Negative) 04/30/21 17:45 Urine Nitrite Neg (Negative) 04/30/21 17:45 Urine Bilirubin Neg (Negative) 04/30/21 17:45 Urine Urobilinogen < 2.0 mg/dL (<2.0) 04/30/21 17:45 Ur Leukocyte Esterase Mod (Negative) 04/30/21 17:45 Urine WBC (Auto) 48.0 /HPF (0.0-6.0) H 04/30/21 17:45 Urine RBC (Auto) 103.0 /HPF (0.0-6.0) 04/30/21 17:45 U Epithel Cells (Auto) < 1.0 /HPF (0-13.0) 04/16/21 00:09 Urine Bacteria (Auto) 1+ /HPF (Negative) 04/16/21 00:09 Urine Mucus Few /HPF 04/30/21 17:45 Urine Yeast (Budding) 3+ /HPF 04/30/21 17:45 Urine Creatinine 24.4 mg/dL (0.1-20.0) H 04/16/21 00:12 Urine Sodium 97 mmol/L 04/16/21 00:12 Random Vancomycin 15.5 ug/mL (0-40.0) 04/27/21 07:52 Salicylates 4.1 mg/dL (2.8-20.0) 04/15/21 17:20 Acetaminophen 5.0 ug/mL (10.0-30.0) L 04/15/21 17:20 Plasma/Serum Alcohol 0.02 % (0-0.07) 04/15/21 17:20 Coronavirus (PCR) Negative (Negative) 04/16/21 Unknown Microbiology: Microbiology 04/30/21 16:07 Peripheral/Venous Blood Culture - Preliminary NO GROWTH AFTER 4 DAYS 04/30/21 16:07 Peripheral/Venous Blood Culture - Preliminary NO GROWTH AFTER 4 DAYS Kerr/IV: Voiding Method External Female Catheter Active Medications - Current Medications Current Medications: Generic Name Dose Route Start Last Admin Trade Name Freq PRN Reason Stop Dose Admin Acetaminophen 650 mg 04/15/21 19:11 04/30/21 20:14 Acetaminophen 325 Mg Tab PO 650 mg Q6H PRN Administration Pain MILD(1-3)/Fever >100.5/SEXTON Albuterol/Ipratropium 1 ampul 04/24/21 14:00 05/04/21 19:56 Ipratropium/Albuterol Sulfate 3 Ml Ampul.Neb IH 1 ampul Q6HRT WOLFGANG Administration Amlodipine Besylate 10 mg 04/25/21 10:00 05/04/21 09:27 Amlodipine 10 Mg Tab PO 10 mg DAILY WOLFGANG Administration Lipase/Protease/Amylase 1 each 04/16/21 12:52 Lipase 10,500/Protease 25,000/Amylase 43,750 (Units) Dr Simpson FEEDTUBE PRN PRN For Clogged Feeding Tube Aspirin 81 mg 04/25/21 10:00 05/04/21 09:26 Aspirin 81 Mg Tab Chew PO 81 mg QDAY WOLFGANG Administration Bisacodyl 10 mg 04/17/21 11:01 05/03/21 09:50 Bisacodyl 10 Mg Rect Supp MT 10 mg QDAY PRN Administration Constipation Brimonidine Tartrate 1 drops 04/17/21 22:00 05/04/21 09:25 Brimonidine 0.15% Ophth Soln OU 1 drops BID WOLFGANG Administration Docusate Sodium 100 mg 04/29/21 15:00 05/04/21 09:31 Docusate Sodium 100 Mg/10 Ml Oral Liqd PO 100 mg BID WOLFGANG Administration Epinephrine 0.5 ml 04/21/21 12:56 Epinephrine Racemic 2.25% 0.5ml Nebu IH Q4HRT PRN Shortness Of Breath Famotidine 20 mg 04/17/21 10:00 05/04/21 09:26 Famotidine 20 Mg Tab PO 20 mg DAILY WOLFGANG Administration Fentanyl 50 mcg 04/24/21 13:03 Fentanyl 100 Mcg/2 Ml Inj IV Q10MIN PRN ANALGESIA Heparin Sodium (Porcine) 5,000 unit 04/15/21 22:00 05/04/21 09:27 Heparin 5,000 Unit/1 Ml Vial SUB-Q 5,000 unit Q12HR WOLFGANG Administration Hydralazine HCl 10 mg 04/16/21 18:00 04/24/21 05:25 Hydralazine 20 Mg/1 Ml Inj IV 10 mg Q4HR PRN Administration Hypertension Hydralazine HCl 50 mg 05/03/21 14:00 05/04/21 14:23 Hydralazine 25 Mg Tab PO 50 mg Q8HR WOLFGANG Administration Hydrophilic Ointment 1 applic 04/15/21 17:24 Lip Therapy Vaseline TP Q2HR PRN Dry Lips Fentanyl Citrate 2,000 mcg in 100 mls @ 4.765 mls/hr 04/24/21 14:00 04/25/21 09:15 Fentanyl Drip Premix IV 0 mcg/kg/hr TITR WOLFGANG 0 mls/hr Titration Protocol 1 MCG/KG/HR Propofol 1,000 mg in 100 mls @ 2.859 mls/hr 04/24/21 14:00 04/25/21 09:10 Diprivan 10 Mg/Ml IV 0 mcg/kg/min TITR WOLFGANG 0 mls/hr Titration Protocol 5 MCG/KG/MIN Metronidazole 500 mg in 100 mls @ 100 mls/hr 04/30/21 12:00 05/04/21 20:57 Flagyl 500 Mg/100 Ml IV 05/05/21 04:59 100 mls/hr Q8H WOLFGANG Administration Protocol Cefepime HCl 2 gm in 100 mls @ 200 mls/hr 05/03/21 18:00 05/04/21 18:10 Cefepime/Ns 2 Gm/100 Ml IV 05/05/21 18:29 200 mls/hr Q24H WOLFGANG Administration Protocol Sodium Chloride 1,000 mls @ 75 mls/hr 05/03/21 14:00 05/04/21 04:13 Nacl 0.45% 1000 Ml IV 05/05/21 03:19 75 mls/hr DIRECT WOLFGANG Administration Insulin Glargine 52 units 05/04/21 22:00 Insulin Glargine 100 Units/Ml SUB-Q QHS WOLFGANG Insulin Human Lispro 0 unit 04/16/21 15:00 05/04/21 18:11 Insulin Lispro 100 Unit/Ml SUB-Q 4 unit Q6HR WOLFGANG Administration Protocol Latanoprost 1 drops 04/17/21 18:00 05/04/21 18:06 Latanoprost 0.005% Ophth Soln 2.5 Ml OU 1 drops QPM WOLFGANG Administration Levothyroxine Sodium 25 mcg 04/19/21 06:00 05/04/21 04:59 Levothyroxine 25 Mcg Tab PO 25 mcg DAILY@0600 WOLFGANG Administration Metoprolol Tartrate 25 mg 04/19/21 10:00 05/04/21 09:26 Metoprolol Tartrate 25 Mg Tab PO 25 mg BID WOLFGANG Administration Multi-Ingred Cream/Lotion/Oil/Oint 1 applic 04/15/21 17:24 05/04/21 09:25 Mineral Oil/Petrolatum, White Ophth Oint 3.5 Gm OU 1 applic Q4HR PRN Administration Dry Eye(s) Pravastatin Sodium 20 mg 04/19/21 22:00 05/03/21 21:37 Pravastatin 20 Mg Tab PO 20 mg QHS WOLFGANG Administration Scopolamine 1 each 04/20/21 18:00 05/02/21 09:14 Scopolamine Transdermal Patch 72 Hr TD 1 each Q3D WOLFGANG Administration Simple Syrup 15 ml 04/16/21 12:52 Simple Syrup 15 Ml FEEDTUBE PRN PRN Hypoglycemia Simple Syrup 30 ml 04/16/21 12:52 Simple Syrup 15 Ml FEEDTUBE PRN PRN Hypoglycemia Sodium Bicarbonate 325 mg 04/16/21 12:52 Sodium Bicarbonate 325 Mg Tab FEEDTUBE PRN PRN For Clogged Feeding Tube Sodium Chloride 10 ml 04/15/21 22:00 05/04/21 09:31 Sodium Chloride 0.9% 10 Ml Flush Syringe IV 10 ml BID WOLFGANG Administration Sodium Chloride 10 ml 04/15/21 19:11 04/24/21 05:27 Sodium Chloride 0.9% 10 Ml Flush Syringe IV 10 ml PRN PRN Administration LINE FLUSH Tamsulosin HCl 0.4 mg 04/25/21 14:00 05/04/21 09:27 Tamsulosin 0.4 Mg Cap PO 0.4 mg QDAY WOLFGANG Administration Timolol Maleate 1 drops 04/19/21 10:00 05/04/21 09:25 Timolol 0.5% Ophth Soln 5 Ml OU 1 drops QDAY WOLFGANG Administration Nutrition/Malnutrition Assess - Dietary Evaluation Nutrition/Malnutrition Findings: Nutrition Notes Start: 04/16/21 12:31 Freq: Status: Active Protocol: Document 04/30/21 09:36 LP (Rec: 04/30/21 09:39 LP [id number]) Nutrition Notes Initial or Follow up Reassessment Current Diagnosis Acute Kidney Injury,Coronary Artery Disease,Diabetes, Hypertension Other Pertinent Diagnosis UTI, acute metabolic encephalopathy Current Diet Glucerna 1.2 at 50ml/hr Labs/Tests BUN 118 Cr 3.3 BG 263 Pertinent Medications Reviewed Height 5 ft 6 in Weight 93 kg [place] Body Weight (kg) 59.09 BMI 33.0 Weight Status Obese Subjective/Other Information Pt tolerating TF at goal rate. Pt on vent. Percent of energy/protein needs met: 100% energy 61% pro Burn Absent Trauma Absent Difficulty In Swallowing Current % PO Negligible Minimum of two criteria No physical signs of malnutrition #1 Nutrition Diagnosis Inadequate oral intake Diagnosis Progress(for reassessment Continues documentation) Is patient on ventilator? Yes Is Patient Ambulatory and/or Out of Bed No REE-([facility]-confined to bed) 1700.760 Kcal/Kg value to use for calculation 15 Approximate Energy Requirements Using 1395 kcal/Kg Calculation Used for Recommendations Kcal/kg Additional Notes Pro needs >2g/kg IBW: >118g/ day Fluid needs 1ml/kcal Nutrition Intervention Change Diet Order: TF Nutrition Support: Continue Glucerna 1.2 at 50ml/ hr with 50ml water flush q4h. Kcal 1,440 Protein (gm) 72 Fluid (mL) 966 Goal #1 TF tolerance Goal #2 TF to meet energy and pro needs as best possible Anticipated Discharge Needs: unable to determine at this time Follow-Up By: 05/07/21 Additional Comments Follow for stable TF
[2021-05-04] MEDS: LATANOPROST 0.005% OPHTH SOLN 2.5 ML OU SCH (18:06)
[2021-05-04] MEDS: CEFEPIME/NS 2 GM/100 ML 2 GM/100 ML BAG IV SCH (18:10)
[2021-05-04] MEDS: PRAVASTATIN 20 MG TAB PO SCH (21:48)
[2021-05-04] MEDS ORDERED: INSULIN GLARGINE 100 UNITS/ML SUB-Q SCH (22:00)
[2021-05-05] MEDS: IPRATROPIUM/ALBUTEROL SULFATE 3 ML AMPUL.NEB IH SCH ×4 (04:13→20:37)
[2021-05-05] MEDS: metroNIDAZOLE/NS 500 MG/100 ML 500 MG/100 ML BAG IV SCH (04:21)
[2021-05-05] MEDS: hydrALAZINE 25 MG TAB PO SCH ×3 (05:26→21:43)
[2021-05-05] MEDS: INSULIN LISPRO 100 UNIT/ML SUB-Q SCH ×3 (05:30→18:00)
[2021-05-05] MEDS: LEVOTHYROXINE 25 MCG TAB PO SCH (05:30)
[2021-05-05 05:34] LABS: Calcium 8.9 mg/dL (8.4-10.2)
[2021-05-05] MEDS: TAMSULOSIN 0.4 MG CAP PO SCH (09:57)
[2021-05-05] MEDS: DOCUSATE SODIUM 100 MG/10 ML ORAL LIQD PO SCH ×2 (09:57→21:43)
[2021-05-05] MEDS: ASPIRIN 81 MG TAB CHEW PO SCH (09:58)
[2021-05-05] MEDS: METOPROLOL TARTRATE 25 MG TAB PO SCH ×2 (09:58→21:43)
[2021-05-05] MEDS: SCOPOLAMINE TRANSDERMAL PATCH 72 HR TD SCH (09:59)
[2021-05-05] MEDS: TIMOLOL 0.5% OPHTH SOLN 5 ML OU SCH (09:59)
[2021-05-05] MEDS: HEPARIN 5,000 UNIT/1 ML VIAL SUB-Q SCH ×2 (09:59→21:42)
[2021-05-05] MEDS: BRIMONIDINE 0.15% OPHTH SOLN OU SCH ×2 (10:00→21:44)
[2021-05-05] MEDS: amLODIPine 10 MG TAB PO SCH (10:02)
[2021-05-05] MEDS: FAMOTIDINE 20 MG TAB PO SCH (10:03)
--- NOTE | 2021-05-05 13:18 | Progress Note ---
Assessment and Plan Acute respiratory failure, on mechanical ventilatory support. Acute toxic metabolic encephalopathy Hypoglycemia ROJELIO Hyperkalemia Rhabdomyolysis Possible seizure activity DM II HTN CAD Obesity H/O breast cancer H/O TIA Leukocytosis Elevated serum TSH, possible hypothyroidism - follow KUB re: abdominal distension - azotemia improved with hydration - continue free water flushes at 250 mls q4h - still awaiting tracheostomy (Plavix on hold; trach likely friday) - continue care as below otherwise; - continue to wean supplemental oxygen for target O2 sat's > 90% acutely - VAP bundle addressed - continue lung protective strategies - continue bronchodilators with pulmonary hygiene per RT - continue Daily SAT and SBT assessment as tolerated - wean per pulmonary driven protocols otherwise - continue accuchecks with glycemic control per SSI (While critically ill target blood glucose of 140-180 mg/dL; avoid hypoglycemia) - sedation prn for target RASS 0 to -1 - avoid nephrotoxins, renally dose all medications - continue to avoid benzodiazepine's, reduce the possibility of delirium - complete AB's per ID rec's re: Cefepime and Flagyl - follow clinically trend fevers / WBC - prn analgesia per CPOT score - Maintenance of sleep-wake cycle, avoid delirium - continue enteral nutritional support at goal rate as tolerated - G.I. & VTE prophylaxis - PT/OT/ROM exercises - continue Flomax re: retention - continue mobility protocols for pressure ulcer prophylaxis - Monitor hemodynamics closely - continue other care per attending / other consultants - discharge planning ongoing concurrently .... Re-evaluate in am & prn CONDITION: CRITICAL PROGNOSIS: GUARDED CODE STATUS: FULL CODE The high probability of a clinically significant, sudden or life-threatening deterioration of the [respiratory, cardiovascular, GI & neurologic] system(s) required my full and direct attention, intervention and personal management. The aggregate critical care time was [33] minutes without overlap. Time includes spent on; [x] Data Review and interpretation [x] Patient assessment and monitoring of vital signs [x] Documentation [x] Medication orders and management Subjective Date of service: 05/05/21 Principal diagnosis: Ac. resp failure; AMS; Hypoglycemia; ROJELIO; Hyperkalemia; DM II Interval history: Patient is seen today for: Acute respiratory failure; AMS; Hypoglycemia; ROJELIO; Hyperkalemia; DM II; H/O breast cancer; Elevated serum TSH, possible hypothyroidism Seen and examined at bedside; 24hour events reviewed; nursing and respiratory care staff consulted; no adverse overnight events reported to me; resting peacefully in bed; remains on MVS; tracheostomy tentatively scheduled for Friday; weaning tenuously Objective Vital Signs - 12hr 05/05/21 05/05/21 05/05/21 02:01 03:01 03:23 Temperature 98.2 F Pulse Rate 66 68 Pulse Rate [ Bilateral] Respiratory 18 19 Rate Respiratory Rate [Bilateral ] Blood Pressure 117/68 117/68 O2 Sat by Pulse 100 100 Oximetry 05/05/21 05/05/21 05/05/21 04:00 04:01 04:08 Temperature Pulse Rate 70 72 72 Pulse Rate [ Bilateral] Respiratory 19 Rate Respiratory Rate [Bilateral ] Blood Pressure 111/60 111/60 O2 Sat by Pulse 96 100 100 Oximetry 05/05/21 05/05/21 05/05/21 05:01 05:26 06:01 Temperature Pulse Rate 70 79 73 Pulse Rate [ Bilateral] Respiratory 19 16 Rate Respiratory Rate [Bilateral ] Blood Pressure 99/66 111/60 111/60 O2 Sat by Pulse 100 100 Oximetry 05/05/21 05/05/21 05/05/21 07:01 07:20 08:00 Temperature 98.0 F Pulse Rate 68 63 Pulse Rate [ 65 Bilateral] Respiratory 20 Rate Respiratory 20 Rate [Bilateral ] Blood Pressure 116/74 137/59 O2 Sat by Pulse 100 100 96 Oximetry 05/05/21 05/05/21 05/05/21 08:01 09:01 09:58 Temperature Pulse Rate 67 76 73 Pulse Rate [ Bilateral] Respiratory 18 21 Rate Respiratory Rate [Bilateral ] Blood Pressure 126/63 142/64 142/64 O2 Sat by Pulse 100 100 Oximetry 05/05/21 05/05/21 05/05/21 10:00 10:02 11:00 Temperature Pulse Rate 72 74 61 Pulse Rate [ Bilateral] Respiratory 20 18 Rate Respiratory Rate [Bilateral ] Blood Pressure 142/64 152/61 O2 Sat by Pulse 100 100 Oximetry 05/05/21 05/05/21 11:20 12:00 Temperature 98.2 F Pulse Rate 64 Pulse Rate [ Bilateral] Respiratory 20 Rate Respiratory Rate [Bilateral ] Blood Pressure 116/43 O2 Sat by Pulse 100 Oximetry Constitutional: no acute distress, other (elderly obese female with mildly increased respiratory effort at rest on MVS) Eyes: non-icteric ENT: oropharynx moist, other (ETT 24 cm RICARDO) Neck: supple, no lymphadenopathy, no JVD, other (large circumference) Effort: mildly labored Ascultation: Bilateral: diminished breath sounds, rhonchi Percussion: Bilateral: not dull Cardiovascular: regular rate and rhythm, other (S1,S2) Gastrointestinal: normoactive bowel sounds, hypoactive bowel sounds, non-tender, non-distended (protuberant), other (distended) Integumentary: normal Extremities: no cyanosis, no edema, pulses normal, no ischemia or petechiae Neurologic: non-focal exam (tracks voice), pupils equal and round, CN II-XII normal, motor strength normal and Psychiatric: mood appropriate, affect normal CBC and BMP: 05/04/21 04:57 05/06/21 07:12 ABG, PT/INR, D-dimer: ABG ABG pH 7.531 (7.320-7.450) H 05/03/21 03:57 POC ABG pCO2 31.0 mmHg (32.0-48.0) L 05/03/21 03:57 POC ABG pO2 64.3 mmHg (83-108) L 05/03/21 03:57 POC ABG HCO3 25.4 05/03/21 03:57 ABG O2 Saturation 93.5 (0-100) 05/03/21 03:57 PT/INR, D-dimer PT 12.2 Sec. (12.2-14.9) 04/15/21 17:20 INR 0.91 (0.87-1.13) 04/15/21 17:20 Abnormal lab findings: Abnormal Labs 04/15/21 04/15/21 04/15/21 17:00 17:20 17:20 WBC 11.2 H RBC Hgb Hct 43.0 H MCV RDW 15.3 H Plt Count Lymph % (Auto) 12.8 L Seg Neutrophils % 82.4 H Seg Neuts % (Manual) Lymphocytes % (Manual) Monocytes % (Manual) Seg Neutrophils # 9.3 H Seg Neutrophils # Man Lymphocytes # (Manual) Monocytes # (Manual) ABG pH POC ABG pCO2 POC ABG pO2 ABG Hemoglobin ABG Oxyhemoglobin ABG Sodium ABG Potassium ABG Chloride ABG Glucose Carboxyhemoglobin Sodium 129 L Potassium 7.1 H* Chloride 91.9 L BUN 35 H Creatinine 2.8 H Glucose POC Glucose 191 H Calcium Phosphorus Magnesium AST 69 H ALT Total Creatine Kinase CK-MB (CK-2) Troponin T Total Protein Albumin HDL Cholesterol TSH Free T3 Index Arterial Blood Glucose Arterial Blood Ionized Calcium Urine pH Urine WBC (Auto) Urine Creatinine Acetaminophen 04/15/21 04/15/21 04/15/21 17:20 17:20 17:20 WBC RBC Hgb Hct MCV RDW Plt Count Lymph % (Auto) Seg Neutrophils % Seg Neuts % (Manual) Lymphocytes % (Manual) Monocytes % (Manual) Seg Neutrophils # Seg Neutrophils # Man Lymphocytes # (Manual) Monocytes # (Manual) ABG pH POC ABG pCO2 POC ABG pO2 ABG Hemoglobin ABG Oxyhemoglobin ABG Sodium ABG Potassium ABG Chloride ABG Glucose Carboxyhemoglobin Sodium Potassium Chloride BUN Creatinine Glucose POC Glucose Calcium Phosphorus Magnesium AST ALT Total Creatine Kinase 1000 H CK-MB (CK-2) Troponin T Total Protein Albumin HDL Cholesterol TSH 14.190 H Free T3 Index Arterial Blood Glucose Arterial Blood Ionized Calcium Urine pH Urine WBC (Auto) Urine Creatinine Acetaminophen 5.0 L 04/15/21 04/15/21 04/15/21 20:49 21:23 23:15 WBC RBC Hgb Hct MCV RDW Plt Count Lymph % (Auto) Seg Neutrophils % Seg Neuts % (Manual) Lymphocytes % (Manual) Monocytes % (Manual) Seg Neutrophils # Seg Neutrophils # Man Lymphocytes # (Manual) Monocytes # (Manual) ABG pH 7.557 H POC ABG pCO2 30.0 L POC ABG pO2 493.3 H ABG Hemoglobin ABG Oxyhemoglobin 99.0 H ABG Sodium 131.5 L ABG Potassium 4.7 H ABG Chloride 94.0 L ABG Glucose 218 H Carboxyhemoglobin Sodium Potassium Chloride BUN Creatinine Glucose POC Glucose 173 H 207 H Calcium Phosphorus Magnesium AST ALT Total Creatine Kinase CK-MB (CK-2) Troponin T Total Protein Albumin HDL Cholesterol TSH Free T3 Index Arterial Blood Glucose 218 H Arterial Blood Ionized Calcium 5.4 H Urine pH Urine WBC (Auto) Urine Creatinine Acetaminophen 04/16/21 04/16/21 04/16/21 00:09 00:12 00:19 WBC RBC Hgb Hct MCV RDW Plt Count Lymph % (Auto) Seg Neutrophils % Seg Neuts % (Manual) Lymphocytes % (Manual) Monocytes % (Manual) Seg Neutrophils # Seg Neutrophils # Man Lymphocytes # (Manual) Monocytes # (Manual) ABG pH POC ABG pCO2 POC ABG pO2 ABG Hemoglobin ABG Oxyhemoglobin ABG Sodium ABG Potassium ABG Chloride ABG Glucose Carboxyhemoglobin Sodium Potassium 6.7 H* Chloride BUN Creatinine Glucose POC Glucose Calcium Phosphorus Magnesium AST ALT Total Creatine Kinase CK-MB (CK-2) Troponin T Total Protein Albumin HDL Cholesterol TSH Free T3 Index Arterial Blood Glucose Arterial Blood Ionized Calcium Urine pH 9.0 H Urine WBC (Auto) Urine Creatinine 24.4 H Acetaminophen 04/16/21 04/16/21 04/16/21 03:43 03:55 05:02 WBC 21.2 H RBC Hgb Hct 43.4 H MCV 98 H RDW Plt Count Lymph % (Auto) Seg Neutrophils % Seg Neuts % (Manual) 84.0 H Lymphocytes % (Manual) 2.0 L Monocytes % (Manual) 10.0 H Seg Neutrophils # Seg Neutrophils # Man 17.8 H Lymphocytes # (Manual) 0.4 L Monocytes # (Manual) 2.1 H ABG pH 7.461 H POC ABG pCO2 POC ABG pO2 ABG Hemoglobin ABG Oxyhemoglobin ABG Sodium 126.8 L ABG Potassium 5.4 H ABG Chloride 90.0 L ABG Glucose 325 H Carboxyhemoglobin Sodium Potassium Chloride BUN Creatinine Glucose POC Glucose 391 H Calcium Phosphorus Magnesium AST ALT Total Creatine Kinase CK-MB (CK-2) Troponin T Total Protein Albumin HDL Cholesterol TSH Free T3 Index Arterial Blood Glucose 325 H Arterial Blood Ionized Calcium Urine pH Urine WBC (Auto) Urine Creatinine Acetaminophen 04/16/21 04/16/21 04/16/21 05:02 11:34 16:09 WBC RBC Hgb Hct MCV RDW Plt Count Lymph % (Auto) Seg Neutrophils % Seg Neuts % (Manual) Lymphocytes % (Manual) Monocytes % (Manual) Seg Neutrophils # Seg Neutrophils # Man Lymphocytes # (Manual) Monocytes # (Manual) ABG pH POC ABG pCO2 POC ABG pO2 ABG Hemoglobin ABG Oxyhemoglobin ABG Sodium ABG Potassium ABG Chloride ABG Glucose Carboxyhemoglobin Sodium 131 L Potassium 5.9 H Chloride 88.7 L BUN 34 H Creatinine 2.9 H Glucose 249 H POC Glucose 382 H 300 H Calcium 10.4 H Phosphorus Magnesium AST 65 H ALT Total Creatine Kinase CK-MB (CK-2) Troponin T Total Protein Albumin 3.8 L HDL Cholesterol TSH Free T3 Index Arterial Blood Glucose Arterial Blood Ionized Calcium Urine pH Urine WBC (Auto) Urine Creatinine Acetaminophen 04/16/21 04/16/21 04/16/21 18:15 19:01 19:01 WBC RBC Hgb Hct MCV RDW Plt Count Lymph % (Auto) Seg Neutrophils % Seg Neuts % (Manual) Lymphocytes % (Manual) Monocytes % (Manual) Seg Neutrophils # Seg Neutrophils # Man Lymphocytes # (Manual) Monocytes # (Manual) ABG pH POC ABG pCO2 POC ABG pO2 ABG Hemoglobin ABG Oxyhemoglobin ABG Sodium ABG Potassium ABG Chloride ABG Glucose Carboxyhemoglobin Sodium 125 L Potassium 5.5 H Chloride 84.5 L BUN 37 H Creatinine 3.5 H Glucose 236 H POC Glucose 287 H Calcium Phosphorus Magnesium AST ALT Total Creatine Kinase CK-MB (CK-2) Troponin T Total Protein Albumin HDL Cholesterol TSH Free T3 Index 1.1 L Arterial Blood Glucose Arterial Blood Ionized Calcium Urine pH Urine WBC (Auto) Urine Creatinine Acetaminophen 04/16/21 04/16/21 04/17/21 19:01 23:48 03:09 WBC RBC Hgb Hct MCV RDW Plt Count Lymph % (Auto) Seg Neutrophils % Seg Neuts % (Manual) Lymphocytes % (Manual) Monocytes % (Manual) Seg Neutrophils # Seg Neutrophils # Man Lymphocytes # (Manual) Monocytes # (Manual) ABG pH 7.518 H POC ABG pCO2 POC ABG pO2 ABG Hemoglobin ABG Oxyhemoglobin ABG Sodium 126.4 L ABG Potassium ABG Chloride 89.0 L ABG Glucose 200 H Carboxyhemoglobin Sodium Potassium 5.6 H Chloride BUN Creatinine Glucose POC Glucose 243 H Calcium Phosphorus Magnesium AST ALT Total Creatine Kinase CK-MB (CK-2) Troponin T Total Protein Albumin HDL Cholesterol TSH Free T3 Index Arterial Blood Glucose 200 H Arterial Blood Ionized Calcium 4.4 L Urine pH Urine WBC (Auto) Urine Creatinine Acetaminophen 04/17/21 04/17/21 04/17/21 05:04 06:14 11:55 WBC RBC Hgb Hct MCV RDW Plt Count Lymph % (Auto) Seg Neutrophils % Seg Neuts % (Manual) Lymphocytes % (Manual) Monocytes % (Manual) Seg Neutrophils # Seg Neutrophils # Man Lymphocytes # (Manual) Monocytes # (Manual) ABG pH POC ABG pCO2 POC ABG pO2 ABG Hemoglobin ABG Oxyhemoglobin ABG Sodium ABG Potassium ABG Chloride ABG Glucose Carboxyhemoglobin Sodium 129 L Potassium Chloride 86.1 L BUN 39 H Creatinine 3.5 H Glucose 202 H POC Glucose 208 H 276 H Calcium Phosphorus Magnesium AST ALT Total Creatine Kinase 750 H CK-MB (CK-2) Troponin T 0.119 H* D Total Protein Albumin HDL Cholesterol 61 H TSH Free T3 Index Arterial Blood Glucose Arterial Blood Ionized Calcium Urine pH Urine WBC (Auto) Urine Creatinine Acetaminophen 04/17/21 04/17/21 04/17/21 15:35 15:35 17:07 WBC 17.1 H RBC Hgb Hct MCV RDW Plt Count Lymph % (Auto) Seg Neutrophils % Seg Neuts % (Manual) Lymphocytes % (Manual) Monocytes % (Manual) Seg Neutrophils # Seg Neutrophils # Man Lymphocytes # (Manual) Monocytes # (Manual) ABG pH POC ABG pCO2 POC ABG pO2 ABG Hemoglobin ABG Oxyhemoglobin ABG Sodium ABG Potassium ABG Chloride ABG Glucose Carboxyhemoglobin Sodium Potassium Chloride BUN Creatinine Glucose POC Glucose 148 H Calcium Phosphorus Magnesium AST ALT Total Creatine Kinase 615 H CK-MB (CK-2) 9.1 H Troponin T Total Protein Albumin HDL Cholesterol TSH Free T3 Index Arterial Blood Glucose Arterial Blood Ionized Calcium Urine pH Urine WBC (Auto) Urine Creatinine Acetaminophen 04/18/21 04/18/21 04/18/21 00:01 03:00 05:24 WBC RBC Hgb Hct MCV RDW Plt Count Lymph % (Auto) Seg Neutrophils % Seg Neuts % (Manual) Lymphocytes % (Manual) Monocytes % (Manual) Seg Neutrophils # Seg Neutrophils # Man Lymphocytes # (Manual) Monocytes # (Manual) ABG pH 7.497 H POC ABG pCO2 POC ABG pO2 77.7 L ABG Hemoglobin 10.4 L ABG Oxyhemoglobin ABG Sodium 129.7 L ABG Potassium 2.8 L ABG Chloride 92.0 L ABG Glucose 134 H Carboxyhemoglobin 0.3 L Sodium Potassium Chloride BUN Creatinine Glucose POC Glucose 192 H 162 H Calcium Phosphorus Magnesium AST ALT Total Creatine Kinase CK-MB (CK-2) Troponin T Total Protein Albumin HDL Cholesterol TSH Free T3 Index Arterial Blood Glucose 134 H Arterial Blood Ionized Calcium 4.3 L Urine pH Urine WBC (Auto) Urine Creatinine Acetaminophen 04/18/21 04/18/21 04/18/21 05:34 05:34 05:43 WBC 15.3 H RBC 3.34 L Hgb Hct MCV RDW 15.3 H Plt Count Lymph % (Auto) Seg Neutrophils % Seg Neuts % (Manual) Lymphocytes % (Manual) Monocytes % (Manual) Seg Neutrophils # Seg Neutrophils # Man Lymphocytes # (Manual) Monocytes # (Manual) ABG pH POC ABG pCO2 POC ABG pO2 ABG Hemoglobin ABG Oxyhemoglobin ABG Sodium ABG Potassium ABG Chloride ABG Glucose Carboxyhemoglobin Sodium 134 L Potassium 3.0 L D Chloride 93.5 L BUN 42 H Creatinine 3.1 H Glucose 152 H POC Glucose Calcium Phosphorus Magnesium 1.40 L AST ALT Total Creatine Kinase 427 H CK-MB (CK-2) Troponin T 0.081 H D Total Protein Albumin HDL Cholesterol TSH Free T3 Index Arterial Blood Glucose Arterial Blood Ionized Calcium Urine pH Urine WBC (Auto) Urine Creatinine Acetaminophen 04/18/21 04/18/21 04/18/21 09:11 11:34 17:24 WBC RBC Hgb Hct MCV RDW Plt Count Lymph % (Auto) Seg Neutrophils % Seg Neuts % (Manual) Lymphocytes % (Manual) Monocytes % (Manual) Seg Neutrophils # Seg Neutrophils # Man Lymphocytes # (Manual) Monocytes # (Manual) ABG pH POC ABG pCO2 POC ABG pO2 ABG Hemoglobin ABG Oxyhemoglobin ABG Sodium ABG Potassium ABG Chloride ABG Glucose Carboxyhemoglobin Sodium Potassium Chloride BUN Creatinine Glucose POC Glucose 170 H 151 H Calcium Phosphorus Magnesium AST ALT Total Creatine Kinase CK-MB (CK-2) Troponin T Total Protein Albumin HDL Cholesterol TSH Free T3 Index Arterial Blood Glucose Arterial Blood Ionized Calcium Urine pH Urine WBC (Auto) 34.0 H Urine Creatinine Acetaminophen 04/18/21 04/19/21 04/19/21 23:18 04:09 05:19 WBC RBC Hgb Hct MCV RDW Plt Count Lymph % (Auto) Seg Neutrophils % Seg Neuts % (Manual) Lymphocytes % (Manual) Monocytes % (Manual) Seg Neutrophils # Seg Neutrophils # Man Lymphocytes # (Manual) Monocytes # (Manual) ABG pH 7.476 H POC ABG pCO2 POC ABG pO2 79.4 L ABG Hemoglobin 10.7 L ABG Oxyhemoglobin ABG Sodium 131.2 L ABG Potassium 2.8 L ABG Chloride 94.0 L ABG Glucose 209 H Carboxyhemoglobin 0.3 L Sodium Potassium Chloride BUN Creatinine Glucose POC Glucose 182 H 204 H Calcium Phosphorus Magnesium AST ALT Total Creatine Kinase CK-MB (CK-2) Troponin T Total Protein Albumin HDL Cholesterol TSH Free T3 Index Arterial Blood Glucose 209 H Arterial Blood Ionized Calcium Urine pH Urine WBC (Auto) Urine Creatinine Acetaminophen 04/19/21 04/19/21 04/19/21 07:30 07:30 10:35 WBC 14.8 H RBC 3.20 L Hgb Hct MCV 98 H RDW Plt Count 137 L Lymph % (Auto) Seg Neutrophils % Seg Neuts % (Manual) Lymphocytes % (Manual) Monocytes % (Manual) Seg Neutrophils # Seg Neutrophils # Man Lymphocytes # (Manual) Monocytes # (Manual) ABG pH 7.464 H POC ABG pCO2 POC ABG pO2 81.8 L ABG Hemoglobin 10.8 L ABG Oxyhemoglobin ABG Sodium 129.6 L ABG Potassium ABG Chloride 95.0 L ABG Glucose 238 H Carboxyhemoglobin Sodium 133 L Potassium 2.8 L* Chloride 94.4 L BUN 43 H Creatinine 2.7 H Glucose 255 H POC Glucose Calcium 8.0 L Phosphorus Magnesium AST ALT Total Creatine Kinase CK-MB (CK-2) Troponin T 0.060 H D Total Protein Albumin HDL Cholesterol TSH Free T3 Index Arterial Blood Glucose 238 H Arterial Blood Ionized Calcium Urine pH Urine WBC (Auto) Urine Creatinine Acetaminophen 04/19/21 04/19/21 04/19/21 11:48 20:40 23:04 WBC RBC Hgb Hct MCV RDW Plt Count Lymph % (Auto) Seg Neutrophils % Seg Neuts % (Manual) Lymphocytes % (Manual) Monocytes % (Manual) Seg Neutrophils # Seg Neutrophils # Man Lymphocytes # (Manual) Monocytes # (Manual) ABG pH POC ABG pCO2 POC ABG pO2 ABG Hemoglobin ABG Oxyhemoglobin ABG Sodium ABG Potassium ABG Chloride ABG Glucose Carboxyhemoglobin Sodium Potassium 3.4 L D Chloride BUN Creatinine Glucose POC Glucose 208 H 173 H Calcium Phosphorus Magnesium AST ALT Total Creatine Kinase CK-MB (CK-2) Troponin T Total Protein Albumin HDL Cholesterol TSH Free T3 Index Arterial Blood Glucose Arterial Blood Ionized Calcium Urine pH Urine WBC (Auto) Urine Creatinine Acetaminophen 04/20/21 04/20/21 04/20/21 02:56 03:32 03:32 WBC 13.2 H RBC 3.18 L Hgb Hct MCV RDW Plt Count Lymph % (Auto) Seg Neutrophils % Seg Neuts % (Manual) Lymphocytes % (Manual) Monocytes % (Manual) Seg Neutrophils # Seg Neutrophils # Man Lymphocytes # (Manual) Monocytes # (Manual) ABG pH 7.526 H POC ABG pCO2 POC ABG pO2 ABG Hemoglobin 10.5 L ABG Oxyhemoglobin ABG Sodium 133.5 L ABG Potassium ABG Chloride ABG Glucose 157 H Carboxyhemoglobin 0.3 L Sodium 135 L Potassium Chloride 96.7 L BUN 40 H Creatinine 2.3 H Glucose 142 H POC Glucose Calcium Phosphorus Magnesium AST ALT Total Creatine Kinase CK-MB (CK-2) Troponin T 0.065 H Total Protein Albumin HDL Cholesterol TSH Free T3 Index Arterial Blood Glucose 157 H Arterial Blood Ionized Calcium Urine pH Urine WBC (Auto) Urine Creatinine Acetaminophen 04/20/21 04/20/21 04/20/21 03:46 05:42 11:50 WBC RBC Hgb Hct MCV RDW Plt Count Lymph % (Auto) Seg Neutrophils % Seg Neuts % (Manual) Lymphocytes % (Manual) Monocytes % (Manual) Seg Neutrophils # Seg Neutrophils # Man Lymphocytes # (Manual) Monocytes # (Manual) ABG pH POC ABG pCO2 POC ABG pO2 ABG Hemoglobin ABG Oxyhemoglobin ABG Sodium ABG Potassium ABG Chloride ABG Glucose Carboxyhemoglobin Sodium Potassium Chloride BUN Creatinine Glucose POC Glucose 160 H 194 H Calcium Phosphorus 2.10 L Magnesium AST ALT Total Creatine Kinase CK-MB (CK-2) Troponin T Total Protein Albumin HDL Cholesterol TSH Free T3 Index Arterial Blood Glucose Arterial Blood Ionized Calcium Urine pH Urine WBC (Auto) Urine Creatinine Acetaminophen 04/20/21 04/20/21 04/21/21 17:09 23:18 05:26 WBC RBC Hgb Hct MCV RDW Plt Count Lymph % (Auto) Seg Neutrophils % Seg Neuts % (Manual) Lymphocytes % (Manual) Monocytes % (Manual) Seg Neutrophils # Seg Neutrophils # Man Lymphocytes # (Manual) Monocytes # (Manual) ABG pH POC ABG pCO2 POC ABG pO2 ABG Hemoglobin ABG Oxyhemoglobin ABG Sodium ABG Potassium ABG Chloride ABG Glucose Carboxyhemoglobin Sodium Potassium Chloride BUN Creatinine Glucose POC Glucose 153 H 162 H 164 H Calcium Phosphorus Magnesium AST ALT Total Creatine Kinase CK-MB (CK-2) Troponin T Total Protein Albumin HDL Cholesterol TSH Free T3 Index Arterial Blood Glucose Arterial Blood Ionized Calcium Urine pH Urine WBC (Auto) Urine Creatinine Acetaminophen 05/04/21/21 04/21/21 05:51 05:51 12:12 WBC RBC 3.20 L Hgb Hct MCV 99 H RDW 15.3 H Plt Count Lymph % (Auto) Seg Neutrophils % Seg Neuts % (Manual) Lymphocytes % (Manual) Monocytes % (Manual) Seg Neutrophils # Seg Neutrophils # Man Lymphocytes # (Manual) Monocytes # (Manual) ABG pH POC ABG pCO2 POC ABG pO2 ABG Hemoglobin ABG Oxyhemoglobin ABG Sodium ABG Potassium ABG Chloride ABG Glucose Carboxyhemoglobin Sodium Potassium Chloride 96.6 L BUN 42 H Creatinine 2.1 H Glucose 171 H POC Glucose 167 H Calcium Phosphorus Magnesium AST ALT Total Creatine Kinase CK-MB (CK-2) Troponin T Total Protein Albumin HDL Cholesterol TSH Free T3 Index Arterial Blood Glucose Arterial Blood Ionized Calcium Urine pH Urine WBC (Auto) Urine Creatinine Acetaminophen 04/21/21 04/21/21 04/22/21 17:13 23:42 05:29 WBC RBC Hgb Hct MCV RDW Plt Count Lymph % (Auto) Seg Neutrophils % Seg Neuts % (Manual) Lymphocytes % (Manual) Monocytes % (Manual) Seg Neutrophils # Seg Neutrophils # Man Lymphocytes # (Manual) Monocytes # (Manual) ABG pH POC ABG pCO2 POC ABG pO2 ABG Hemoglobin ABG Oxyhemoglobin ABG Sodium ABG Potassium ABG Chloride ABG Glucose Carboxyhemoglobin Sodium Potassium Chloride BUN Creatinine Glucose POC Glucose 178 H 253 H 208 H Calcium Phosphorus Magnesium AST ALT Total Creatine Kinase CK-MB (CK-2) Troponin T Total Protein Albumin HDL Cholesterol TSH Free T3 Index Arterial Blood Glucose Arterial Blood Ionized Calcium Urine pH Urine WBC (Auto) Urine Creatinine Acetaminophen 04/22/21 04/22/21 04/22/21 08:00 08:00 12:06 WBC 12.9 H RBC Hgb Hct MCV RDW Plt Count Lymph % (Auto) Seg Neutrophils % Seg Neuts % (Manual) Lymphocytes % (Manual) Monocytes % (Manual) Seg Neutrophils # Seg Neutrophils # Man Lymphocytes # (Manual) Monocytes # (Manual) ABG pH POC ABG pCO2 POC ABG pO2 ABG Hemoglobin ABG Oxyhemoglobin ABG Sodium ABG Potassium ABG Chloride ABG Glucose Carboxyhemoglobin Sodium Potassium Chloride BUN 47 H Creatinine 1.9 H Glucose 252 H POC Glucose 298 H Calcium Phosphorus Magnesium AST ALT Total Creatine Kinase CK-MB (CK-2) Troponin T Total Protein Albumin HDL Cholesterol TSH Free T3 Index Arterial Blood Glucose Arterial Blood Ionized Calcium Urine pH Urine WBC (Auto) Urine Creatinine Acetaminophen 04/22/21 04/22/21 04/23/21 17:34 23:01 05:08 WBC RBC Hgb Hct MCV RDW Plt Count Lymph % (Auto) Seg Neutrophils % Seg Neuts % (Manual) Lymphocytes % (Manual) Monocytes % (Manual) Seg Neutrophils # Seg Neutrophils # Man Lymphocytes # (Manual) Monocytes # (Manual) ABG pH POC ABG pCO2 POC ABG pO2 ABG Hemoglobin ABG Oxyhemoglobin ABG Sodium ABG Potassium ABG Chloride ABG Glucose Carboxyhemoglobin Sodium Potassium Chloride BUN Creatinine Glucose POC Glucose 259 H 280 H 223 H Calcium Phosphorus Magnesium AST ALT Total Creatine Kinase CK-MB (CK-2) Troponin T Total Protein Albumin HDL Cholesterol TSH Free T3 Index Arterial Blood Glucose Arterial Blood Ionized Calcium Urine pH Urine WBC (Auto) Urine Creatinine Acetaminophen 04/23/21 04/23/21 04/23/21 07:02 11:57 17:33 WBC RBC Hgb Hct MCV RDW Plt Count Lymph % (Auto) Seg Neutrophils % Seg Neuts % (Manual) Lymphocytes % (Manual) Monocytes % (Manual) Seg Neutrophils # Seg Neutrophils # Man Lymphocytes # (Manual) Monocytes # (Manual) ABG pH POC ABG pCO2 POC ABG pO2 ABG Hemoglobin ABG Oxyhemoglobin ABG Sodium ABG Potassium ABG Chloride ABG Glucose Carboxyhemoglobin Sodium Potassium Chloride 97.7 L BUN 57 H Creatinine 2.0 H Glucose 253 H POC Glucose 310 H 235 H Calcium Phosphorus Magnesium AST ALT Total Creatine Kinase CK-MB (CK-2) Troponin T Total Protein Albumin HDL Cholesterol TSH Free T3 Index Arterial Blood Glucose Arterial Blood Ionized Calcium Urine pH Urine WBC (Auto) Urine Creatinine Acetaminophen 04/23/21 04/24/21 04/24/21 23:15 05:23 05:46 WBC RBC Hgb Hct MCV RDW Plt Count Lymph % (Auto) Seg Neutrophils % Seg Neuts % (Manual) Lymphocytes % (Manual) Monocytes % (Manual) Seg Neutrophils # Seg Neutrophils # Man Lymphocytes # (Manual) Monocytes # (Manual) ABG pH POC ABG pCO2 POC ABG pO2 ABG Hemoglobin ABG Oxyhemoglobin ABG Sodium ABG Potassium ABG Chloride ABG Glucose Carboxyhemoglobin Sodium Potassium 5.2 H D Chloride BUN 68 H Creatinine 2.3 H Glucose 277 H POC Glucose 197 H 274 H Calcium Phosphorus Magnesium AST ALT Total Creatine Kinase CK-MB (CK-2) Troponin T Total Protein Albumin HDL Cholesterol TSH Free T3 Index Arterial Blood Glucose Arterial Blood Ionized Calcium Urine pH Urine WBC (Auto) Urine Creatinine Acetaminophen 04/24/21 04/24/21 04/24/21 11:33 11:52 17:49 WBC RBC Hgb Hct MCV RDW Plt Count Lymph % (Auto) Seg Neutrophils % Seg Neuts % (Manual) Lymphocytes % (Manual) Monocytes % (Manual) Seg Neutrophils # Seg Neutrophils # Man Lymphocytes # (Manual) Monocytes # (Manual) ABG pH POC ABG pCO2 POC ABG pO2 72.7 L ABG Hemoglobin 11.6 L ABG Oxyhemoglobin 92.9 L ABG Sodium ABG Potassium ABG Chloride ABG Glucose 269 H Carboxyhemoglobin Sodium Potassium Chloride BUN Creatinine Glucose POC Glucose 223 H 252 H Calcium Phosphorus Magnesium AST ALT Total Creatine Kinase CK-MB (CK-2) Troponin T Total Protein Albumin HDL Cholesterol TSH Free T3 Index Arterial Blood Glucose 269 H Arterial Blood Ionized Calcium Urine pH Urine WBC (Auto) Urine Creatinine Acetaminophen 04/24/21 04/24/21 04/25/21 21:00 23:48 03:06 WBC RBC Hgb Hct MCV RDW Plt Count Lymph % (Auto) Seg Neutrophils % Seg Neuts % (Manual) Lymphocytes % (Manual) Monocytes % (Manual) Seg Neutrophils # Seg Neutrophils # Man Lymphocytes # (Manual) Monocytes # (Manual) ABG pH 7.521 H 7.451 H POC ABG pCO2 POC ABG pO2 80.7 L 77.1 L ABG Hemoglobin 10.4 L 11.2 L ABG Oxyhemoglobin ABG Sodium ABG Potassium ABG Chloride ABG Glucose 186 H 165 H Carboxyhemoglobin 0 L Sodium Potassium Chloride BUN Creatinine Glucose POC Glucose 141 H Calcium Phosphorus Magnesium AST ALT Total Creatine Kinase CK-MB (CK-2) Troponin T Total Protein Albumin HDL Cholesterol TSH Free T3 Index Arterial Blood Glucose 186 H 165 H Arterial Blood Ionized Calcium Urine pH Urine WBC (Auto) Urine Creatinine Acetaminophen 04/25/21 04/25/21 04/25/21 03:56 03:56 06:03 WBC 12.3 H RBC 3.40 L Hgb Hct MCV RDW Plt Count Lymph % (Auto) Seg Neutrophils % Seg Neuts % (Manual) Lymphocytes % (Manual) Monocytes % (Manual) Seg Neutrophils # Seg Neutrophils # Man Lymphocytes # (Manual) Monocytes # (Manual) ABG pH POC ABG pCO2 POC ABG pO2 ABG Hemoglobin ABG Oxyhemoglobin ABG Sodium ABG Potassium ABG Chloride ABG Glucose Carboxyhemoglobin Sodium Potassium Chloride BUN 78 H Creatinine 2.5 H Glucose 152 H POC Glucose 171 H Calcium Phosphorus Magnesium AST ALT Total Creatine Kinase CK-MB (CK-2) Troponin T Total Protein Albumin HDL Cholesterol TSH Free T3 Index Arterial Blood Glucose Arterial Blood Ionized Calcium Urine pH Urine WBC (Auto) Urine Creatinine Acetaminophen 04/25/21 04/25/21 04/26/21 11:43 15:37 00:05 WBC RBC Hgb Hct MCV RDW Plt Count Lymph % (Auto) Seg Neutrophils % Seg Neuts % (Manual) Lymphocytes % (Manual) Monocytes % (Manual) Seg Neutrophils # Seg Neutrophils # Man Lymphocytes # (Manual) Monocytes # (Manual) ABG pH POC ABG pCO2 POC ABG pO2 ABG Hemoglobin ABG Oxyhemoglobin ABG Sodium ABG Potassium ABG Chloride ABG Glucose Carboxyhemoglobin Sodium Potassium Chloride BUN Creatinine Glucose POC Glucose 181 H 167 H 144 H Calcium Phosphorus Magnesium AST ALT Total Creatine Kinase CK-MB (CK-2) Troponin T Total Protein Albumin HDL Cholesterol TSH Free T3 Index Arterial Blood Glucose Arterial Blood Ionized Calcium Urine pH Urine WBC (Auto) Urine Creatinine Acetaminophen 04/26/21 04/26/21 04/26/21 04:30 05:44 09:30 WBC RBC Hgb Hct MCV RDW Plt Count Lymph % (Auto) Seg Neutrophils % Seg Neuts % (Manual) Lymphocytes % (Manual) Monocytes % (Manual) Seg Neutrophils # Seg Neutrophils # Man Lymphocytes # (Manual) Monocytes # (Manual) ABG pH 7.529 H POC ABG pCO2 POC ABG pO2 66.1 L ABG Hemoglobin 11.2 L ABG Oxyhemoglobin 92.8 L ABG Sodium ABG Potassium ABG Chloride ABG Glucose 216 H Carboxyhemoglobin 0.3 L Sodium Potassium Chloride BUN 82 H Creatinine 2.7 H Glucose 238 H POC Glucose 202 H Calcium Phosphorus Magnesium AST ALT Total Creatine Kinase CK-MB (CK-2) Troponin T Total Protein Albumin HDL Cholesterol TSH Free T3 Index Arterial Blood Glucose 216 H Arterial Blood Ionized Calcium Urine pH Urine WBC (Auto) Urine Creatinine Acetaminophen 04/26/21 04/26/21 04/26/21 09:30 11:32 17:21 WBC 24.7 H RBC 3.32 L Hgb Hct MCV RDW Plt Count Lymph % (Auto) Seg Neutrophils % Seg Neuts % (Manual) Lymphocytes % (Manual) Monocytes % (Manual) Seg Neutrophils # Seg Neutrophils # Man Lymphocytes # (Manual) Monocytes # (Manual) ABG pH POC ABG pCO2 POC ABG pO2 ABG Hemoglobin ABG Oxyhemoglobin ABG Sodium ABG Potassium ABG Chloride ABG Glucose Carboxyhemoglobin Sodium Potassium Chloride BUN Creatinine Glucose POC Glucose 245 H 264 H Calcium Phosphorus Magnesium AST ALT Total Creatine Kinase CK-MB (CK-2) Troponin T Total Protein Albumin HDL Cholesterol TSH Free T3 Index Arterial Blood Glucose Arterial Blood Ionized Calcium Urine pH Urine WBC (Auto) Urine Creatinine Acetaminophen 04/26/21 04/27/21 04/27/21 23:18 04:23 04:54 WBC RBC Hgb Hct MCV RDW Plt Count Lymph % (Auto) Seg Neutrophils % Seg Neuts % (Manual) Lymphocytes % (Manual) Monocytes % (Manual) Seg Neutrophils # Seg Neutrophils # Man Lymphocytes # (Manual) Monocytes # (Manual) ABG pH 7.549 H POC ABG pCO2 30.0 L POC ABG pO2 64.9 L ABG Hemoglobin 11 L ABG Oxyhemoglobin 93.3 L ABG Sodium ABG Potassium ABG Chloride ABG Glucose 325 H Carboxyhemoglobin 0.3 L Sodium Potassium Chloride BUN Creatinine Glucose POC Glucose 201 H 298 H Calcium Phosphorus Magnesium AST ALT Total Creatine Kinase CK-MB (CK-2) Troponin T Total Protein Albumin HDL Cholesterol TSH Free T3 Index Arterial Blood Glucose 325 H Arterial Blood Ionized Calcium Urine pH Urine WBC (Auto) Urine Creatinine Acetaminophen 04/27/21 04/27/21 04/27/21 07:52 07:52 11:22 WBC 23.0 H RBC 3.32 L Hgb Hct MCV RDW 15.5 H Plt Count Lymph % (Auto) Seg Neutrophils % Seg Neuts % (Manual) Lymphocytes % (Manual) Monocytes % (Manual) Seg Neutrophils # Seg Neutrophils # Man Lymphocytes # (Manual) Monocytes # (Manual) ABG pH POC ABG pCO2 POC ABG pO2 ABG Hemoglobin ABG Oxyhemoglobin ABG Sodium ABG Potassium ABG Chloride ABG Glucose Carboxyhemoglobin Sodium Potassium 3.5 L Chloride BUN 90 H Creatinine 2.8 H Glucose 286 H POC Glucose 251 H Calcium Phosphorus Magnesium AST ALT Total Creatine Kinase CK-MB (CK-2) Troponin T Total Protein Albumin HDL Cholesterol TSH Free T3 Index Arterial Blood Glucose Arterial Blood Ionized Calcium Urine pH Urine WBC (Auto) Urine Creatinine Acetaminophen 04/27/21 04/27/21 04/27/21 17:21 17:45 23:05 WBC RBC Hgb Hct MCV RDW Plt Count Lymph % (Auto) Seg Neutrophils % Seg Neuts % (Manual) Lymphocytes % (Manual) Monocytes % (Manual) Seg Neutrophils # Seg Neutrophils # Man Lymphocytes # (Manual) Monocytes # (Manual) ABG pH POC ABG pCO2 POC ABG pO2 ABG Hemoglobin ABG Oxyhemoglobin ABG Sodium ABG Potassium ABG Chloride ABG Glucose Carboxyhemoglobin Sodium Potassium Chloride BUN Creatinine Glucose POC Glucose 180 H 178 H 189 H Calcium Phosphorus Magnesium AST ALT Total Creatine Kinase CK-MB (CK-2) Troponin T Total Protein Albumin HDL Cholesterol TSH Free T3 Index Arterial Blood Glucose Arterial Blood Ionized Calcium Urine pH Urine WBC (Auto) Urine Creatinine Acetaminophen 04/28/21 04/28/21 04/28/21 03:14 04:13 04:13 WBC 17.6 H RBC 3.03 L Hgb 9.7 L Hct 29.5 L MCV RDW Plt Count Lymph % (Auto) Seg Neutrophils % Seg Neuts % (Manual) Lymphocytes % (Manual) Monocytes % (Manual) Seg Neutrophils # Seg Neutrophils # Man Lymphocytes # (Manual) Monocytes # (Manual) ABG pH 7.507 H POC ABG pCO2 POC ABG pO2 62.0 L ABG Hemoglobin 10.2 L ABG Oxyhemoglobin 91.9 L ABG Sodium ABG Potassium ABG Chloride ABG Glucose 337 H Carboxyhemoglobin 0.2 L Sodium Potassium Chloride BUN 101 H Creatinine 3.1 H Glucose 304 H POC Glucose Calcium Phosphorus Magnesium AST 61 H ALT 64 H Total Creatine Kinase CK-MB (CK-2) Troponin T Total Protein 6.2 L Albumin 2.6 L HDL Cholesterol TSH Free T3 Index Arterial Blood Glucose 337 H Arterial Blood Ionized Calcium Urine pH Urine WBC (Auto) Urine Creatinine Acetaminophen 04/28/21 04/28/21 04/28/21 05:01 11:28 18:23 WBC RBC Hgb Hct MCV RDW Plt Count Lymph % (Auto) Seg Neutrophils % Seg Neuts % (Manual) Lymphocytes % (Manual) Monocytes % (Manual) Seg Neutrophils # Seg Neutrophils # Man Lymphocytes # (Manual) Monocytes # (Manual) ABG pH POC ABG pCO2 POC ABG pO2 ABG Hemoglobin ABG Oxyhemoglobin ABG Sodium ABG Potassium ABG Chloride ABG Glucose Carboxyhemoglobin Sodium Potassium Chloride BUN Creatinine Glucose POC Glucose 282 H 263 H 200 H Calcium Phosphorus Magnesium AST ALT Total Creatine Kinase CK-MB (CK-2) Troponin T Total Protein Albumin HDL Cholesterol TSH Free T3 Index Arterial Blood Glucose Arterial Blood Ionized Calcium Urine pH Urine WBC (Auto) Urine Creatinine Acetaminophen 04/28/21 04/29/21 04/29/21 23:49 03:24 04:22 WBC RBC Hgb Hct MCV RDW Plt Count Lymph % (Auto) Seg Neutrophils % Seg Neuts % (Manual) Lymphocytes % (Manual) Monocytes % (Manual) Seg Neutrophils # Seg Neutrophils # Man Lymphocytes # (Manual) Monocytes # (Manual) ABG pH 7.546 H POC ABG pCO2 POC ABG pO2 52.4 L ABG Hemoglobin 10.5 L ABG Oxyhemoglobin 88.3 L ABG Sodium ABG Potassium ABG Chloride ABG Glucose 217 H Carboxyhemoglobin 0.4 L Sodium 148 H Potassium Chloride BUN 110 H Creatinine 3.1 H Glucose 208 H POC Glucose 238 H Calcium Phosphorus Magnesium AST ALT Total Creatine Kinase CK-MB (CK-2) Troponin T Total Protein Albumin HDL Cholesterol TSH Free T3 Index Arterial Blood Glucose 217 H Arterial Blood Ionized Calcium Urine pH Urine WBC (Auto) Urine Creatinine Acetaminophen 04/29/21 04/29/21 04/29/21 04:22 05:08 11:26 WBC 15.2 H RBC 3.30 L Hgb 9.8 L Hct MCV RDW Plt Count Lymph % (Auto) Seg Neutrophils % Seg Neuts % (Manual) Lymphocytes % (Manual) Monocytes % (Manual) Seg Neutrophils # Seg Neutrophils # Man Lymphocytes # (Manual) Monocytes # (Manual) ABG pH POC ABG pCO2 POC ABG pO2 ABG Hemoglobin ABG Oxyhemoglobin ABG Sodium ABG Potassium ABG Chloride ABG Glucose Carboxyhemoglobin Sodium Potassium Chloride BUN Creatinine Glucose POC Glucose 181 H 218 H Calcium Phosphorus Magnesium AST ALT Total Creatine Kinase CK-MB (CK-2) Troponin T Total Protein Albumin HDL Cholesterol TSH Free T3 Index Arterial Blood Glucose Arterial Blood Ionized Calcium Urine pH Urine WBC (Auto) Urine Creatinine Acetaminophen 04/29/21 04/29/21 04/30/21 17:06 23:06 03:58 WBC RBC Hgb Hct MCV RDW Plt Count Lymph % (Auto) Seg Neutrophils % Seg Neuts % (Manual) Lymphocytes % (Manual) Monocytes % (Manual) Seg Neutrophils # Seg Neutrophils # Man Lymphocytes # (Manual) Monocytes # (Manual) ABG pH 7.547 H POC ABG pCO2 31.3 L POC ABG pO2 58.4 L ABG Hemoglobin 9.6 L ABG Oxyhemoglobin 91.1 L ABG Sodium ABG Potassium ABG Chloride 108.0 H ABG Glucose 248 H Carboxyhemoglobin 0.2 L Sodium Potassium Chloride BUN Creatinine Glucose POC Glucose 223 H 252 H Calcium Phosphorus Magnesium AST ALT Total Creatine Kinase CK-MB (CK-2) Troponin T Total Protein Albumin HDL Cholesterol TSH Free T3 Index Arterial Blood Glucose 248 H Arterial Blood Ionized Calcium Urine pH Urine WBC (Auto) Urine Creatinine Acetaminophen 04/30/21 04/30/21 04/30/21 05:23 05:54 11:47 WBC RBC Hgb Hct MCV RDW Plt Count Lymph % (Auto) Seg Neutrophils % Seg Neuts % (Manual) Lymphocytes % (Manual) Monocytes % (Manual) Seg Neutrophils # Seg Neutrophils # Man Lymphocytes # (Manual) Monocytes # (Manual) ABG pH POC ABG pCO2 POC ABG pO2 ABG Hemoglobin ABG Oxyhemoglobin ABG Sodium ABG Potassium ABG Chloride ABG Glucose Carboxyhemoglobin Sodium Potassium Chloride BUN 118 H Creatinine 3.3 H Glucose 263 H POC Glucose 244 H 237 H Calcium Phosphorus Magnesium AST ALT Total Creatine Kinase CK-MB (CK-2) Troponin T Total Protein Albumin HDL Cholesterol TSH Free T3 Index Arterial Blood Glucose Arterial Blood Ionized Calcium Urine pH Urine WBC (Auto) Urine Creatinine Acetaminophen 04/30/21 04/30/21 04/30/21 17:26 17:45 23:51 WBC RBC Hgb Hct MCV RDW Plt Count Lymph % (Auto) Seg Neutrophils % Seg Neuts % (Manual) Lymphocytes % (Manual) Monocytes % (Manual) Seg Neutrophils # Seg Neutrophils # Man Lymphocytes # (Manual) Monocytes # (Manual) ABG pH POC ABG pCO2 POC ABG pO2 ABG Hemoglobin ABG Oxyhemoglobin ABG Sodium ABG Potassium ABG Chloride ABG Glucose Carboxyhemoglobin Sodium Potassium Chloride BUN Creatinine Glucose POC Glucose 193 H 197 H Calcium Phosphorus Magnesium AST ALT Total Creatine Kinase CK-MB (CK-2) Troponin T Total Protein Albumin HDL Cholesterol TSH Free T3 Index Arterial Blood Glucose Arterial Blood Ionized Calcium Urine pH Urine WBC (Auto) 48.0 H Urine Creatinine Acetaminophen 05/01/21 05/01/21 05/01/21 04:02 04:57 07:11 WBC 12.3 H RBC 2.83 L Hgb 8.8 L Hct 27.3 L MCV RDW Plt Count Lymph % (Auto) Seg Neutrophils % Seg Neuts % (Manual) 80.0 H Lymphocytes % (Manual) 5.0 L Monocytes % (Manual) Seg Neutrophils # Seg Neutrophils # Man 9.8 H Lymphocytes # (Manual) 0.6 L Monocytes # (Manual) ABG pH 7.466 H POC ABG pCO2 POC ABG pO2 61.4 L ABG Hemoglobin 9.0 L ABG Oxyhemoglobin 91.1 L ABG Sodium ABG Potassium ABG Chloride 110.0 H ABG Glucose 245 H Carboxyhemoglobin Sodium Potassium Chloride BUN Creatinine Glucose POC Glucose 193 H Calcium Phosphorus Magnesium AST ALT Total Creatine Kinase CK-MB (CK-2) Troponin T Total Protein Albumin HDL Cholesterol TSH Free T3 Index Arterial Blood Glucose 245 H Arterial Blood Ionized Calcium Urine pH Urine WBC (Auto) Urine Creatinine Acetaminophen 05/01/21 05/01/21 05/01/21 07:11 07:45 11:30 WBC RBC Hgb Hct MCV RDW Plt Count Lymph % (Auto) Seg Neutrophils % Seg Neuts % (Manual) Lymphocytes % (Manual) Monocytes % (Manual) Seg Neutrophils # Seg Neutrophils # Man Lymphocytes # (Manual) Monocytes # (Manual) ABG pH POC ABG pCO2 POC ABG pO2 ABG Hemoglobin ABG Oxyhemoglobin ABG Sodium ABG Potassium ABG Chloride ABG Glucose Carboxyhemoglobin Sodium 146 H Potassium Chloride 108.4 H BUN 122 H Creatinine 3.4 H Glucose 235 H POC Glucose 212 H 247 H Calcium Phosphorus Magnesium AST ALT Total Creatine Kinase CK-MB (CK-2) Troponin T Total Protein Albumin HDL Cholesterol TSH Free T3 Index Arterial Blood Glucose Arterial Blood Ionized Calcium Urine pH Urine WBC (Auto) Urine Creatinine Acetaminophen 05/01/21 05/01/21 05/01/21 11:31 17:42 23:49 WBC RBC Hgb Hct MCV RDW Plt Count Lymph % (Auto) Seg Neutrophils % Seg Neuts % (Manual) Lymphocytes % (Manual) Monocytes % (Manual) Seg Neutrophils # Seg Neutrophils # Man Lymphocytes # (Manual) Monocytes # (Manual) ABG pH POC ABG pCO2 POC ABG pO2 ABG Hemoglobin ABG Oxyhemoglobin ABG Sodium ABG Potassium ABG Chloride ABG Glucose Carboxyhemoglobin Sodium Potassium Chloride BUN Creatinine Glucose POC Glucose 258 H 171 H 167 H Calcium Phosphorus Magnesium AST ALT Total Creatine Kinase CK-MB (CK-2) Troponin T Total Protein Albumin HDL Cholesterol TSH Free T3 Index Arterial Blood Glucose Arterial Blood Ionized Calcium Urine pH Urine WBC (Auto) Urine Creatinine Acetaminophen 05/02/21 05/02/21 05/02/21 05:12 08:34 11:53 WBC RBC Hgb Hct MCV RDW Plt Count Lymph % (Auto) Seg Neutrophils % Seg Neuts % (Manual) Lymphocytes % (Manual) Monocytes % (Manual) Seg Neutrophils # Seg Neutrophils # Man Lymphocytes # (Manual) Monocytes # (Manual) ABG pH POC ABG pCO2 POC ABG pO2 ABG Hemoglobin ABG Oxyhemoglobin ABG Sodium ABG Potassium ABG Chloride ABG Glucose Carboxyhemoglobin Sodium 148 H Potassium Chloride 110.4 H BUN 124 H Creatinine 3.4 H Glucose 208 H POC Glucose 163 H 185 H Calcium 8.3 L Phosphorus Magnesium AST ALT Total Creatine Kinase CK-MB (CK-2) Troponin T Total Protein Albumin HDL Cholesterol TSH Free T3 Index Arterial Blood Glucose Arterial Blood Ionized Calcium Urine pH Urine WBC (Auto) Urine Creatinine Acetaminophen 05/02/21 05/02/21 05/03/21 17:28 23:32 03:57 WBC RBC Hgb Hct MCV RDW Plt Count Lymph % (Auto) Seg Neutrophils % Seg Neuts % (Manual) Lymphocytes % (Manual) Monocytes % (Manual) Seg Neutrophils # Seg Neutrophils # Man Lymphocytes # (Manual) Monocytes # (Manual) ABG pH 7.531 H POC ABG pCO2 31.0 L POC ABG pO2 64.3 L ABG Hemoglobin 9.0 L ABG Oxyhemoglobin 92.6 L ABG Sodium 145.7 H ABG Potassium ABG Chloride 112.0 H ABG Glucose 202 H Carboxyhemoglobin Sodium Potassium Chloride BUN Creatinine Glucose POC Glucose 147 H 202 H Calcium Phosphorus Magnesium AST ALT Total Creatine Kinase CK-MB (CK-2) Troponin T Total Protein Albumin HDL Cholesterol TSH Free T3 Index Arterial Blood Glucose 202 H Arterial Blood Ionized Calcium Urine pH Urine WBC (Auto) Urine Creatinine Acetaminophen 05/03/21 05/03/21 05/03/21 05:14 05:44 11:10 WBC RBC Hgb Hct MCV RDW Plt Count Lymph % (Auto) Seg Neutrophils % Seg Neuts % (Manual) Lymphocytes % (Manual) Monocytes % (Manual) Seg Neutrophils # Seg Neutrophils # Man Lymphocytes # (Manual) Monocytes # (Manual) ABG pH POC ABG pCO2 POC ABG pO2 ABG Hemoglobin ABG Oxyhemoglobin ABG Sodium ABG Potassium ABG Chloride ABG Glucose Carboxyhemoglobin Sodium 147 H Potassium Chloride 109.7 H BUN 121 H Creatinine 3.1 H Glucose 190 H POC Glucose 175 H 202 H Calcium Phosphorus Magnesium AST ALT Total Creatine Kinase CK-MB (CK-2) Troponin T Total Protein Albumin HDL Cholesterol TSH Free T3 Index Arterial Blood Glucose Arterial Blood Ionized Calcium Urine pH Urine WBC (Auto) Urine Creatinine Acetaminophen 05/03/21 05/04/21 05/04/21 23:58 04:57 04:57 WBC RBC 2.61 L Hgb 8.2 L Hct 25.4 L MCV 98 H RDW 15.3 H Plt Count Lymph % (Auto) Seg Neutrophils % Seg Neuts % (Manual) Lymphocytes % (Manual) Monocytes % (Manual) Seg Neutrophils # Seg Neutrophils # Man Lymphocytes # (Manual) Monocytes # (Manual) ABG pH POC ABG pCO2 POC ABG pO2 ABG Hemoglobin ABG Oxyhemoglobin ABG Sodium ABG Potassium ABG Chloride ABG Glucose Carboxyhemoglobin Sodium 147 H Potassium Chloride 111.0 H BUN 104 H Creatinine 2.8 H Glucose 179 H POC Glucose 131 H Calcium Phosphorus Magnesium AST ALT Total Creatine Kinase CK-MB (CK-2) Troponin T Total Protein Albumin HDL Cholesterol TSH Free T3 Index Arterial Blood Glucose Arterial Blood Ionized Calcium Urine pH Urine WBC (Auto) Urine Creatinine Acetaminophen 05/04/21 05/04/21 05/04/21 05:19 11:28 17:02 WBC RBC Hgb Hct MCV RDW Plt Count Lymph % (Auto) Seg Neutrophils % Seg Neuts % (Manual) Lymphocytes % (Manual) Monocytes % (Manual) Seg Neutrophils # Seg Neutrophils # Man Lymphocytes # (Manual) Monocytes # (Manual) ABG pH POC ABG pCO2 POC ABG pO2 ABG Hemoglobin ABG Oxyhemoglobin ABG Sodium ABG Potassium ABG Chloride ABG Glucose Carboxyhemoglobin Sodium Potassium Chloride BUN Creatinine Glucose POC Glucose 168 H 206 H 213 H Calcium Phosphorus Magnesium AST ALT Total Creatine Kinase CK-MB (CK-2) Troponin T Total Protein Albumin HDL Cholesterol TSH Free T3 Index Arterial Blood Glucose Arterial Blood Ionized Calcium Urine pH Urine WBC (Auto) Urine Creatinine Acetaminophen 05/04/21 05/05/21 05/05/21 23:13 04:55 05:15 WBC RBC Hgb Hct MCV RDW Plt Count Lymph % (Auto) Seg Neutrophils % Seg Neuts % (Manual) Lymphocytes % (Manual) Monocytes % (Manual) Seg Neutrophils # Seg Neutrophils # Man Lymphocytes # (Manual) Monocytes # (Manual) ABG pH POC ABG pCO2 POC ABG pO2 ABG Hemoglobin ABG Oxyhemoglobin ABG Sodium ABG Potassium ABG Chloride ABG Glucose Carboxyhemoglobin Sodium Potassium Chloride BUN 91 H Creatinine 2.4 H Glucose 255 H POC Glucose 232 H 235 H Calcium Phosphorus Magnesium AST ALT Total Creatine Kinase CK-MB (CK-2) Troponin T Total Protein Albumin HDL Cholesterol TSH Free T3 Index Arterial Blood Glucose Arterial Blood Ionized Calcium Urine pH Urine WBC (Auto) Urine Creatinine Acetaminophen 05/05/21 11:41 WBC RBC Hgb Hct MCV RDW Plt Count Lymph % (Auto) Seg Neutrophils % Seg Neuts % (Manual) Lymphocytes % (Manual) Monocytes % (Manual) Seg Neutrophils # Seg Neutrophils # Man Lymphocytes # (Manual) Monocytes # (Manual) ABG pH POC ABG pCO2 POC ABG pO2 ABG Hemoglobin ABG Oxyhemoglobin ABG Sodium ABG Potassium ABG Chloride ABG Glucose Carboxyhemoglobin Sodium Potassium Chloride BUN Creatinine Glucose POC Glucose 199 H Calcium Phosphorus Magnesium AST ALT Total Creatine Kinase CK-MB (CK-2) Troponin T Total Protein Albumin HDL Cholesterol TSH Free T3 Index Arterial Blood Glucose Arterial Blood Ionized Calcium Urine pH Urine WBC (Auto) Urine Creatinine Acetaminophen Chest x-ray: other (none today) Allied health notes reviewed: nursing
--- NOTE | 2021-05-05 13:54 | Progress Note ---
<JEREMYPURNIMAElvia - Last Filed: 05/05/21 13:50> Assessment and Plan Assessment and plan: This is a 80-year-old female with HTN, DM, OR, breast CA s/p double mastectomy, TIA who presented with hypoglycemia, AMS who was admitted with SIRS, symptomatic bradycardia, acute metabolic encephalopathy, acute hypoxic respiratory failure, elevated TSH, hyperglycemia, hyponatremia, hypokalemia, ROJELIO and rhabdomyolysis Acute metabolic encephalopathy-persist Acute hypoxic respiratory failure (extubated 04/20)- Re-intubated secondary to Stridor and paradoxical breathing First-degree heart block Resolved ileus versus mechanical obstruction Acute kidney injury with vasomotor nephropathy UTI, Pseudomonas/ Earline Elevated TSH Mild rhabdomyolysis Hypertension Diabetes mellitus with hyperglycemia on admission CAD Hypothyrodisim Chronic illness debilitymyopathy Obesity -CCM, nephrology, neurology, cardiology consulted, patient recommendations -S/p D10 and D5W gtt, on TF -S/p IV calcium gluconate, regular insulin, D50 -S/p transcutaneous pacing, intermittent demand pacer in place -Renal ultrasound findings consistent with acute on chronic kidney disease, mildly complex right renal cyst -Blood pressure monitoring per protocol -Accu-Cheks every 6, SSI, long acting insulin -IV hydralazine as needed -04/25 EEG is mildly abnormal with mild slowing noted throughout the recording, suggestive of mild cortical dysfunction and/or drug effect -04/20 EEG shows mildly abnormal record due to diffuse background slowing noted throughout the recording, intermittent motion artifact, patient intubated and sedated at time of study, no sign of seizures as well epilepticus noted, possible toxic metabolic encephalopathy, drug effect, possible postictal state cannot be totally excluded. -Avoid ACEi/ARB in setting of ROJELIO -Avoid AV arron blocking agents -Avoid nephrotoxic agents and renally dose medications -BB, add home antihtn regimen as needed -TSH 14.1, T4 4.1, T3 pending-started on levothyroxine -Provegil -As needed racemic epinephrine -S/p steroids -Antibiotic therapy -Trend CBC, BMP DVT/GI prophylaxis: Heparin subcu, PPI, SCDs to bilateral lower extremities while in bed Disposition: ICU The high probability of a clinically significant, sudden or life threatening deterioration of the [PULMONARY, CARDIAC, RENAL] system(s) required my full and direct attention, intervention and personal management. The aggregate critical care time was [35] minutes. This time is in addition to time spent performing reported procedures but includes the following: [X] Data Review and interpretation [X] Patient assessment and monitoring of vital signs [X] Documentation [X] Medication orders and management History Interval history: This is a 80-year-old female with hypertension, diabetes mellitus, OR, breast cancer s/p double mastectomy, and a TIA who presented with hypoglycemia and altered mental status on 04/15 via EMS. Per EMS patient was unresponsive on their arrival and her blood glucose was 38 and she received 1 amp of dextrose patient continued to be unresponsive and only moaned with her eyes deviating to the left. Work-up in the emergency department revealed SIRS, symptomatic bradycardia, acute metabolic encephalopathy, acute hypoxic respiratory failure, elevated TSH, hyperglycemia, hyponatremia, hyperkalemia, acute kidney injury with ATN, and rhabdomyolysis 04/16: Neurology consulted, COVID-19 PCR negative, D10 drip decreased and eventually discontinued by [facility] and started on D5W for 1 L. Hydralazine as needed. Patient had hyper kalemia today and was treated with D50, insulin and Kayexalate. This time examination patient is on assist control tidal volume 450, rate of 16, PEEP of 6 and 25% FiO2. 04/17: Patient started on low-dose beta-angel per cardiology, CPAP trial again per [facility], BUN/creatinine holding steady and hypochloremia/hyponatremia slightly improved and hypokalemia has resolved. This morning a KUB was obtained which was concerning for ileus versus mechanical obstruction and surgery was consulted. Patient was made n.p.o. and NG tube placed to wall suction. Patient was given suppository. Per RN patient did not have a BM even though she was given Kayexalate yesterday. Will obtain a KUB in the a.m. Neurology was consulted yesterday and will await further recommendations. Nephew updated at bedside today, Carlos Romero. 04/18: Neurology has ordered EEG/MRI B, [facility] continues to wean MV. Persistent low grade temperature so we will obtain BCx2/UA. Patient has improving leukocytosis, hyponatremia, renal function studies and hypochloremia. She has hypokalemia today which is being repleted. Surgery has signed off today and has okayed resumption of TF. [facility] will trial CPAP for longer today and plans to attempt extubation in AM. Family has requested transfer to [place] [facility] and Dr. Gordon will attempt to contact transfer center. I updated her nephew, Carlos Romero over the phone today abouyt current events and update on transfer ([facility] will conduct a utilization review) 04/19: This morning patient is on CPAP trial at the time of examination, noted to be hypertensive and metoprolol increased to home dose, started on synthroid by [facility], lantus started re hyperglycemia, MRI completed with no acute findings. Severe hypokalemia (repleted and Mg pending). [facility] will contact CPAP trial again today with possible trial extubation tomorrow. 04/20: Patient's leukocytosis and kidney function tests continue to improve. Patient is hypertensive overnight we will restart home hydralazine. [facility] plans to extubate patient today. Family is attempting to transfer to another facility. EEG pending, RT will atmept to contact community service technician. Urine culture grew gram negative rods. Increase in lantus 04/21: Increase in Lantus, repleted phos. Patient has started this afternoon and was given racemic epinephrine and started on steroids. Patient will have BiPAP as needed. We will recheck BMP in the a.m. renal function studies continues to decrease. Patient has been hypertensive on evaluation regimen has been changed. 04/22: Lantus increased for hyperglycemia and add amlodipine for better BP control. Patient is on steroids. OT suctioned by RN with catheter in oral care kit and received copious amounts of secretions. Cr continues to decrease. Culture grew Pseudomonas and was changed in accordance to sensitivity. Kerr removed today after clearance from nephrology. 04/23: MRI of the brain was done and unremarkable. Will obtain reconsult to nephrology for further assistance as patient remains in profound encephalopathy despite improvement of blood sugar. Will repeat chest x-ray as patient does have significant congestion physical exam. Tube feeds still ongoing. Continue aspiration precautions. Continue antibiotics when completed for Pseudomonas management 04/24: Neurology input noted, patient unfortunately with no improvement mental status [place], continues with congestion, will defer with Blueprint Reader for lasix in the setting of renal failure. will give kayexlate for hyperkalemia, still moans and groans, mittens in place. 04/25: Patient currently intubated, on restraints for safety, Profund encephalopathy persist, although awake she is not following any commands, Call placed to [facility] to see if they will accept transfer for ENT evaluation, while CT neck was negative, it was degraded by motion and unable to determent why patient had this stridor, Racemic Epinephrine was given, [facility] is on ICU saturation, but will call back with an ENT to discuss case. Renal function mildly worse, continue to monitor. Per cardiology, no further arrhythmias noted since admission. Given short duration of atrial fibrillation, along with pt's age, renal fxn, and other co- morbidities,...will resume additional medical therapies for underlying severe multi-vessel CAD (bASA & Plavix). 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 04/26: Now with febrile illness, ?developing infection, start on empiric abx, check lactate level, blood cultures, continue management per Spanish Interpreter/Translator, Mo nitor leukocytosis, agree with Trach, family updated about denials in transfer request from outside hospitals. 04/27: WBC improving some, still with fever despite antibotics, ID consulted. CXR clear, continue current management, Trach will be planned if ok with family. Blood sugar remains elevated, will adjust insulin LANTUS to 40 units. Patient had previously completed Cefepime. Mental status remains unchanged, still moves upper ext. continue restraints 04/28: Continue supportive care. No new fever noted. Critical care physician will determine if patient should be have a trial of extubation again or if we should proceed straight to trach. Again continue to monitor mental status for complete improvement. 04/29: Per Spanish Interpreter/Translator discussion with family, will proceed to Tracheostomy, Pat ients mental status still fluctuating, Continue current management. Surgeon consulted. 04/30: General surgery consulted for trach, continue to trend CBC and BMP. Kidney function slightly worsened today. Increase in Lantus. Tmax 100.2, per ID will consider imaging if leukocytosis remains elevated with fevers. Plavix held for possible tracheostomy next week. 05/01: Patient fever curve is trending down with improving leukocytosis. Patient renal function worsened today. She remains hyperglycemic and her Lantus was increased to her home dose of Novolin 70/30. Patient was rate controlled yester day due to T-max of 101. She remains on CMV tidal volume 450, rate of 10, PEEP of 6 and 30% FiO2. We will increase the water flushes given slight hypernatremia. Dr. Andrea updated nephew (Carlos) at bedside. CPAP trails. 05/02: Patient's hypernatremia and hyperchloremia slightly worsened and femur fractures were increased. Kidney functions remain the same however BUN is in the 100s. Nephrology is following. Kerr catheter was removed. Awaiting trach placement with possibility on Friday. 05/03: Patient grew Earline in her urine culture however per ID and the Kerr was already exchanged. Patient is on cefepime and Flagyl. Plavix still on hold awaiting trach. CCM started the patient on half-normal saline at 75 mL/h for 2 L related to azatoma and hypernatremia. Patient mental status continues to wax and wane. Creatinine is 3.1 today from 3.4 yesterday. Patient had a bowel movement today. Patient remains hyperglycemic and Lantus was changed from a.m. to p.m.. 05/04: Patient's renal function is improving, surgery obtain consent for trach/PEG scheduled for 05/07, antibiotics to end tomorrow. We will obtain BMP in the a.m. Lantus dosage change from AC to at bedtime in hopes of better glycemic control. 05/05: Patient Lantus dose is changed to twice daily in hopes of better glycemic control. Awaiting surgical procedure hopefully on Friday. Patient's BUN/creatinine improved and hypernatremia has resolved. Hospitalist Physical - Constitutional Vitals: Temp Pulse Resp BP Pulse Ox 98.2 F 64 20 116/43 100 05/05/21 12:00 05/05/21 11:20 05/05/21 11:20 05/05/21 11:20 05/05/21 11:20 General appearance: Present: no acute distress, other (Resting on mechanical ventilation) - EENT Eyes: Present: PERRL ENT: poor dentition - Neck Neck: Present: normal ROM - Respiratory Respiratory effort: normal Respiratory: bilateral: diminished - Cardiovascular Rhythm: regular Heart Sounds: Present: S1 & S2. Absent: systolic murmur, diastolic murmur - Extremities Extremities: no ischemia, pulses intact, pulses symmetrical, No edema, normal temperature, normal color Peripheral Pulses: within normal limits - Abdominal General gastrointestinal: soft, non-tender, non-distended, normal bowel sounds - Integumentary Integumentary: Present: warm, dry - Psychiatric Psychiatric: cooperative - Neurologic Neurologic: moves all extremities - Allied Health Allied health notes reviewed: nursing, RT HEART Score - HEART Score Troponin: Troponin T 0.065 ng/mL (0.00-0.029) H 04/20/21 03:32 Results - Labs CBC & Chem 7: 05/04/21 04:57 05/05/21 04:55 Labs: Laboratory Last Values WBC 10.2 K/mm3 (4.5-11.0) 05/04/21 04:57 RBC 2.61 M/mm3 (3.65-5.03) L 05/04/21 04:57 Hgb 8.2 gm/dl (10.1-14.3) L 05/04/21 04:57 Hct 25.4 % (30.3-42.9) L 05/04/21 04:57 MCV 98 fl (79-97) H 05/04/21 04:57 MCH 31 pg (28-32) 05/04/21 04:57 MCHC 32 % (30-34) 05/04/21 04:57 RDW 15.3 % (13.2-15.2) H 05/04/21 04:57 Plt Count 321 K/mm3 (140-440) 05/04/21 04:57 Lymph % (Auto) 12.8 % (13.4-35.0) L 04/15/21 17:20 Tripp % (Auto) 4.1 % (0.0-7.3) 04/15/21 17:20 Eos % (Auto) 0.3 % (0.0-4.3) 04/15/21 17:20 Baso % (Auto) 0.4 % (0.0-1.8) 04/15/21 17:20 Lymph # (Auto) 1.4 K/mm3 (1.2-5.4) 04/15/21 17:20 Tripp # (Auto) 0.5 K/mm3 (0.0-0.8) 04/15/21 17:20 Eos # (Auto) 0.0 K/mm3 (0.0-0.4) 04/15/21 17:20 Baso # (Auto) 0.0 K/mm3 (0.0-0.1) 04/15/21 17:20 Add Manual Diff Complete 05/01/21 07:11 Total Counted 100 05/01/21 07:11 Seg Neutrophils % 82.4 % (40.0-70.0) H 04/15/21 17:20 Seg Neuts % (Manual) 80.0 % (40.0-70.0) H 05/01/21 07:11 Band Neutrophils % 7.0 % 05/01/21 07:11 Lymphocytes % (Manual) 5.0 % (13.4-35.0) L 05/01/21 07:11 Monocytes % (Manual) 6.0 % (0.0-7.3) 05/01/21 07:11 Eosinophils % (Manual) 1.0 % (0.0-4.3) 05/01/21 07:11 Metamyelocytes % 1.0 % 05/01/21 07:11 Nucleated RBC % Not Reportable 05/01/21 07:11 Seg Neutrophils # 9.3 K/mm3 (1.8-7.7) H 04/15/21 17:20 Seg Neutrophils # Man 9.8 K/mm3 (1.8-7.7) H 05/01/21 07:11 Band Neutrophils # 0.9 K/mm3 05/01/21 07:11 Lymphocytes # (Manual) 0.6 K/mm3 (1.2-5.4) L 05/01/21 07:11 Abs React Lymphs (Man) 0.0 K/mm3 05/01/21 07:11 Monocytes # (Manual) 0.7 K/mm3 (0.0-0.8) 05/01/21 07:11 Eosinophils # (Manual) 0.1 K/mm3 (0.0-0.4) 05/01/21 07:11 Basophils # (Manual) 0.0 K/mm3 (0.0-0.1) 05/01/21 07:11 Metamyelocytes # 0.1 K/mm3 05/01/21 07:11 Myelocytes # 0.0 K/mm3 05/01/21 07:11 Promyelocytes # 0.0 K/mm3 05/01/21 07:11 Blast Cells # 0.0 K/mm3 05/01/21 07:11 WBC Morphology Not Reportable 05/01/21 07:11 Hypersegmented Neuts Not Reportable 05/01/21 07:11 Hyposegmented Neuts Not Reportable 05/01/21 07:11 Hypogranular Neuts Not Reportable 05/01/21 07:11 Smudge Cells Not Reportable 05/01/21 07:11 Toxic Granulation Not Reportable 05/01/21 07:11 Toxic Vacuolation Not Reportable 05/01/21 07:11 Dohle Bodies Not Reportable 05/01/21 07:11 Pelger-Huet Anomaly Not Reportable 05/01/21 07:11 Peterson Rods Not Reportable 05/01/21 07:11 Platelet Estimate Consistent w auto 05/01/21 07:11 Clumped Platelets Not Reportable 05/01/21 07:11 Plt Clumps, EDTA Not Reportable 05/01/21 07:11 Large Platelets Not Reportable 05/01/21 07:11 Giant Platelets Not Reportable 05/01/21 07:11 Platelet Satelliting Not Reportable 05/01/21 07:11 Plt Morphology Comment Not Reportable 05/01/21 07:11 RBC Morphology Normal 05/01/21 07:11 Dimorphic RBCs Not Reportable 05/01/21 07:11 Polychromasia Not Reportable 05/01/21 07:11 Hypochromasia Not Reportable 05/01/21 07:11 Poikilocytosis Not Reportable 05/01/21 07:11 Anisocytosis Not Reportable 05/01/21 07:11 Microcytosis Not Reportable 05/01/21 07:11 Macrocytosis Not Reportable 05/01/21 07:11 Spherocytes Not Reportable 05/01/21 07:11 Pappenheimer Bodies Not Reportable 05/01/21 07:11 Sickle Cells Not Reportable 05/01/21 07:11 Target Cells Not Reportable 05/01/21 07:11 Tear Drop Cells Not Reportable 05/01/21 07:11 Ovalocytes Not Reportable 05/01/21 07:11 Helmet Cells Not Reportable 05/01/21 07:11 Law-Carlos Bodies Not Reportable 05/01/21 07:11 [place] Rings Not Reportable 05/01/21 07:11 [place] Cells Not Reportable 05/01/21 07:11 Bite Cells Not Reportable 05/01/21 07:11 Crenated Cell Not Reportable 05/01/21 07:11 Elliptocytes Not Reportable 05/01/21 07:11 Acanthocytes (Spur) Not Reportable 05/01/21 07:11 Rouleaux Not Reportable 05/01/21 07:11 Hemoglobin C Crystals Not Reportable 05/01/21 07:11 Schistocytes Not Reportable 05/01/21 07:11 Malaria parasites Not Reportable 05/01/21 07:11 James Bodies Not Reportable 05/01/21 07:11 Hem Pathologist Commnt No 05/01/21 07:11 PT 12.2 Sec. (12.2-14.9) 04/15/21 17:20 INR 0.91 (0.87-1.13) 04/15/21 17:20 APTT 31.8 Sec. (24.2-36.6) 04/15/21 17:20 ABG pH 7.531 (7.320-7.450) H 05/03/21 03:57 POC ABG pCO2 31.0 mmHg (32.0-48.0) L 05/03/21 03:57 POC ABG pO2 64.3 mmHg (83-108) L 05/03/21 03:57 POC ABG HCO3 25.4 05/03/21 03:57 ABG O2 Saturation 93.5 (0-100) 05/03/21 03:57 POC ABG Base Excess 2.9 05/03/21 03:57 ABG Hemoglobin 9.0 (12.0-17.5) L 05/03/21 03:57 ABG Oxyhemoglobin 92.6 (94-98) L 05/03/21 03:57 ABG Methemoglobin 0.3 (0.0-1.5) 05/03/21 03:57 ABG Sodium 145.7 mmol/L (136.0-145.0) H 05/03/21 03:57 ABG Potassium 4.1 mmol/L (3.40-4.50) 05/03/21 03:57 ABG Chloride 112.0 mmol/L (98-107) H 05/03/21 03:57 ABG Glucose 202 mg/dL (65-95) H 05/03/21 03:57 Carboxyhemoglobin 0.7 (0.5-1.5) 05/03/21 03:57 FiO2 % 30.0 05/03/21 03:57 Sodium 141 mmol/L (137-145) 05/05/21 04:55 Potassium 4.4 mmol/L (3.6-5.0) 05/05/21 04:55 Chloride 106.7 mmol/L (98-107) 05/05/21 04:55 Carbon Dioxide 25 mmol/L (22-30) 05/05/21 04:55 Anion Gap 14 mmol/L 05/05/21 04:55 BUN 91 mg/dL (7-17) H 05/05/21 04:55 Creatinine 2.4 mg/dL (0.6-1.2) H 05/05/21 04:55 Estimated GFR 23 ml/min 05/05/21 04:55 BUN/Creatinine Ratio 38 % 05/05/21 04:55 Glucose 255 mg/dL (65-100) H 05/05/21 04:55 POC Glucose 199 mg/dL (70-105) H 05/05/21 11:41 Lactic Acid 1.10 mmol/L (0.7-2.0) 04/26/21 09:30 Calcium 8.9 mg/dL (8.4-10.2) 05/05/21 04:55 Phosphorus 2.60 mg/dL (2.5-4.5) 04/22/21 08:00 Magnesium 2.10 mg/dL (1.7-2.3) 04/23/21 07:02 Total Bilirubin 0.30 mg/dL (0.1-1.2) 04/28/21 04:13 Direct Bilirubin < 0.2 mg/dL (0-0.2) 04/28/21 04:13 Indirect Bilirubin 0.1 mg/dL 04/28/21 04:13 AST 61 units/L (5-40) H 04/28/21 04:13 ALT 64 units/L (7-56) H 04/28/21 04:13 Alkaline Phosphatase 95 units/L (35-129) 04/28/21 04:13 Ammonia 46.0 umol/L (25-60) 04/15/21 17:20 Total Creatine Kinase 427 units/L (30-135) H 04/18/21 05:34 CK-MB (CK-2) 9.1 ng/mL (0.0-4.0) H 04/17/21 15:35 CK-MB (CK-2) Rel Index 1.4 (0-4) 04/17/21 15:35 Troponin T 0.065 ng/mL (0.00-0.029) H 04/20/21 03:32 NT-Pro-B Natriuret Pep 697.9 pg/mL (0-900) 04/15/21 17:20 Total Protein 6.2 g/dL (6.3-8.2) L 04/28/21 04:13 Albumin 2.6 g/dL (3.9-5) L 04/28/21 04:13 Albumin/Globulin Ratio 0.7 % 04/28/21 04:13 Triglycerides 103 mg/dL (2-149) 04/17/21 05:04 Cholesterol 122 mg/dL (50-199) 04/17/21 05:04 LDL Cholesterol Direct 55 mg/dL (50-130) 04/17/21 05:04 HDL Cholesterol 61 mg/dL (40-59) H 04/17/21 05:04 Cholesterol/HDL Ratio 2.00 % 04/17/21 05:04 Procalcitonin 0.20 ng/mL (<0.15) 04/16/21 19:01 TSH 14.190 mlU/mL (0.270-4.200) H 04/15/21 17:20 Thyroxine (T4) 4.1 ug/dL (4.0-12.0) 04/16/21 19:01 Free T3 Index 1.1 pg/mL (2.3-4.2) L 04/16/21 19:01 Arterial Blood Glucose 202 mg/dL (65-95) H 05/03/21 03:57 Arterial Blood Ionized Calcium 5.0 mg/dL (4.6-5.3) 05/03/21 03:57 Urine Color Yellow (Yellow) 04/30/21 17:45 Urine Turbidity Cloudy (Clear) 04/30/21 17:45 Urine pH 5.0 (5.0-7.0) 04/30/21 17:45 Ur Specific [place] 1.016 (1.003-1.030) 04/30/21 17:45 Urine Protein 100 mg/dl mg/dL (Negative) 04/30/21 17:45 Urine Glucose (UA) Neg mg/dL (Negative) 04/30/21 17:45 Urine Ketones Neg mg/dL (Negative) 04/30/21 17:45 Urine Blood Mod (Negative) 04/30/21 17:45 Urine Nitrite Neg (Negative) 04/30/21 17:45 Urine Bilirubin Neg (Negative) 04/30/21 17:45 Urine Urobilinogen < 2.0 mg/dL (<2.0) 04/30/21 17:45 Ur Leukocyte Esterase Mod (Negative) 04/30/21 17:45 Urine WBC (Auto) 48.0 /HPF (0.0-6.0) H 04/30/21 17:45 Urine RBC (Auto) 103.0 /HPF (0.0-6.0) 04/30/21 17:45 U Epithel Cells (Auto) < 1.0 /HPF (0-13.0) 04/16/21 00:09 Urine Bacteria (Auto) 1+ /HPF (Negative) 04/16/21 00:09 Urine Mucus Few /HPF 04/30/21 17:45 Urine Yeast (Budding) 3+ /HPF 04/30/21 17:45 Urine Creatinine 24.4 mg/dL (0.1-20.0) H 04/16/21 00:12 Urine Sodium 97 mmol/L 04/16/21 00:12 Random Vancomycin 15.5 ug/mL (0-40.0) 04/27/21 07:52 Salicylates 4.1 mg/dL (2.8-20.0) 04/15/21 17:20 Acetaminophen 5.0 ug/mL (10.0-30.0) L 04/15/21 17:20 Plasma/Serum Alcohol 0.02 % (0-0.07) 04/15/21 17:20 Coronavirus (PCR) Negative (Negative) 04/16/21 Unknown Microbiology: Microbiology 04/30/21 16:07 Peripheral/Venous Blood Culture - Preliminary NO GROWTH AFTER 4 DAYS 04/30/21 16:07 Peripheral/Venous Blood Culture - Preliminary NO GROWTH AFTER 4 DAYS Kerr/IV: Voiding Method External Female Catheter Active Medications - Current Medications Current Medications: Generic Name Dose Route Start Last Admin Trade Name Freq PRN Reason Stop Dose Admin Acetaminophen 650 mg 05/16/21 19:11 04/30/21 20:14 Acetaminophen 325 Mg Tab PO 650 mg Q6H PRN Administration Pain MILD(1-3)/Fever >100.5/SEXTON Albuterol/Ipratropium 1 ampul 04/24/21 14:00 05/05/21 07:20 Ipratropium/Albuterol Sulfate 3 Ml Ampul.Neb IH 1 ampul Q6HRT WOLFGANG Administration Amlodipine Besylate 10 mg 04/25/21 10:00 05/05/21 10:02 Amlodipine 10 Mg Tab PO 10 mg DAILY WOLFGANG Administration Lipase/Protease/Amylase 1 each 04/16/21 12:52 Lipase 10,500/Protease 25,000/Amylase 43,750 (Units) Dr Simpson FEEDTUBE PRN PRN For Clogged Feeding Tube Aspirin 81 mg 04/25/21 10:00 05/05/21 09:58 Aspirin 81 Mg Tab Chew PO 81 mg QDAY WOLFGANG Administration Bisacodyl 10 mg 04/17/21 11:01 05/03/21 09:50 Bisacodyl 10 Mg Rect Supp [place] 10 mg QDAY PRN Administration Constipation Brimonidine Tartrate 1 drops 04/17/21 22:00 05/05/21 10:00 Brimonidine 0.15% Ophth Soln OU 1 drops BID WOLFGANG Administration Docusate Sodium 100 mg 04/29/21 15:00 05/05/21 09:57 Docusate Sodium 100 Mg/10 Ml Oral Liqd PO 100 mg BID WOLFGANG Administration Epinephrine 0.5 ml 04/21/21 12:56 Epinephrine Racemic 2.25% 0.5ml Nebu IH Q4HRT PRN Shortness Of Breath Famotidine 20 mg 04/17/21 10:00 05/05/21 10:03 Famotidine 20 Mg Tab PO 20 mg DAILY WOLFGANG Administration Fentanyl 50 mcg 04/24/21 13:03 Fentanyl 100 Mcg/2 Ml Inj IV Q10MIN PRN ANALGESIA Heparin Sodium (Porcine) 5,000 unit 04/15/21 22:00 05/05/21 09:59 Heparin 5,000 Unit/1 Ml Vial SUB-Q 5,000 unit Q12HR WOLFGANG Administration Hydralazine HCl 10 mg 04/16/21 18:00 04/24/21 05:25 Hydralazine 20 Mg/1 Ml Inj IV 10 mg Q4HR PRN Administration Hypertension Hydralazine HCl 50 mg 05/03/21 14:00 05/05/21 05:26 Hydralazine 25 Mg Tab PO Not Given Q8HR [facility] Hydrophilic Ointment 1 applic 04/15/21 17:24 Lip Therapy Vaseline TP Q2HR PRN Dry Lips Fentanyl Citrate 2,000 mcg in 100 mls @ 4.765 mls/hr 04/24/21 14:00 04/25/21 09:15 Fentanyl Drip Premix IV 0 mcg/kg/hr TITR WOLFGANG 0 mls/hr Titration Protocol 1 MCG/KG/HR Propofol 1,000 mg in 100 mls @ 2.859 mls/hr 04/24/21 14:00 04/25/21 09:10 Diprivan 10 Mg/Ml IV 0 mcg/kg/min TITR WOLFGANG 0 mls/hr Titration Protocol 5 MCG/KG/MIN Cefepime HCl 2 gm in 100 mls @ 200 mls/hr 05/03/21 18:00 05/04/21 18:10 Cefepime/Ns 2 Gm/100 Ml IV 05/05/21 18:29 200 mls/hr Q24H [facility] Administration Protocol Insulin Human Isoph/Insulin Regular 25 unit 05/05/21 17:00 Insulin Nph/Regular 70/30 Inj SUB-Q BIDDIAB WOLFGANG Insulin Human Lispro 0 unit 04/16/21 15:00 05/05/21 05:30 Insulin Lispro 100 Unit/Ml SUB-Q 4 unit Q6HR [facility] Administration Protocol Latanoprost 1 drops 04/17/21 18:00 05/04/21 18:06 Latanoprost 0.005% Ophth Soln 2.5 Ml OU 1 drops QPM [facility] Administration Levothyroxine Sodium 25 mcg 04/19/21 06:00 05/05/21 05:30 Levothyroxine 25 Mcg Tab PO 25 mcg DAILY@0600 [facility] Administration Metoprolol Tartrate 25 mg 04/19/21 10:00 05/05/21 09:58 Metoprolol Tartrate 25 Mg Tab PO 25 mg BID [facility] Administration Multi-Ingred Cream/Lotion/Oil/Oint 1 applic 04/15/21 17:24 05/04/21 09:25 Mineral Oil/Petrolatum, White Ophth Oint 3.5 Gm OU 1 applic Q4HR PRN Administration Dry Eye(s) Pravastatin Sodium 20 mg 04/19/21 22:00 05/04/21 21:48 Pravastatin 20 Mg Tab PO 20 mg QHS WOLFGANG Administration Scopolamine 1 each 04/20/21 18:00 05/05/21 09:59 Scopolamine Transdermal Patch 72 Hr TD 1 each Q3D WOLFGANG Administration Simple Syrup 15 ml 04/16/21 12:52 Simple Syrup 15 Ml FEEDTUBE PRN PRN Hypoglycemia Simple Syrup 30 ml 04/16/21 12:52 Simple Syrup 15 Ml FEEDTUBE PRN PRN Hypoglycemia Sodium Bicarbonate 325 mg 04/16/21 12:52 Sodium Bicarbonate 325 Mg Tab FEEDTUBE PRN PRN For Clogged Feeding Tube Sodium Chloride 10 ml 04/15/21 22:00 05/05/21 10:02 Sodium Chloride 0.9% 10 Ml Flush Syringe IV 10 ml BID WOLFGANG Administration Sodium Chloride 10 ml 04/15/21 19:11 04/24/21 05:27 Sodium Chloride 0.9% 10 Ml Flush Syringe IV 10 ml PRN PRN Administration LINE FLUSH Tamsulosin HCl 0.4 mg 04/25/21 14:00 05/05/21 09:57 Tamsulosin 0.4 Mg Cap PO 0.4 mg QDAY WOLFGANG Administration Timolol Maleate 1 drops 04/19/21 10:00 05/05/21 09:59 Timolol 0.5% Ophth Soln 5 Ml OU 1 drops QDAY WOLFGANG Administration Nutrition/Malnutrition Assess - Dietary Evaluation Nutrition/Malnutrition Findings: Nutrition Notes Start: 04/16/21 12:31 Freq: Status: Active Protocol: Document 04/30/21 09:36 LP (Rec: 04/30/21 09:39 LP [email or web address]) Nutrition Notes Initial or Follow up Reassessment Current Diagnosis Acute Kidney Injury,Coronary Artery Disease,Diabetes, Hypertension Other Pertinent Diagnosis UTI, acute metabolic encephalopathy Current Diet Glucerna 1.2 at 50ml/hr Labs/Tests BUN 118 Cr 3.3 BG 263 Pertinent Medications Reviewed Height 5 ft 6 in Weight 93 kg [place] Body Weight (kg) 59.09 BMI 33.0 Weight Status Obese Subjective/Other Information Pt tolerating TF at goal rate. Pt on vent. Percent of energy/protein needs met: 100% energy 61% pro Burn Absent Trauma Absent Difficulty In Swallowing Current % PO Negligible Minimum of two criteria No physical signs of malnutrition #1 Nutrition Diagnosis Inadequate oral intake Diagnosis Progress(for reassessment Continues documentation) Is patient on ventilator? Yes Is Patient Ambulatory and/or Out of Bed No REE-(Binger-St Jeor-confined to bed) 1700.760 Kcal/Kg value to use for calculation 15 Approximate Energy Requirements Using 1395 kcal/Kg Calculation Used for Recommendations Kcal/kg Additional Notes Pro needs >2g/kg IBW: >118g/ day Fluid needs 1ml/kcal Nutrition Intervention Change Diet Order: TF Nutrition Support: Continue Glucerna 1.2 at 50ml/ hr with 50ml water flush q4h. Kcal 1,440 Protein (gm) 72 Fluid (mL) 966 Goal #1 TF tolerance Goal #2 TF to meet energy and pro needs as best possible Anticipated Discharge Needs: unable to determine at this time Follow-Up By: 05/07/21 Additional Comments Follow for stable TF <SONI DUTTA - Last Filed: 05/05/21 18:37> History Interval history: This is a 80-year-old female with HTN, DM, OR, breast CA s/p double mastectomy, TIA who presented with hypoglycemia, AMS who was admitted with SIRS, symptomatic bradycardia, acute metabolic encephalopathy, acute hypoxic respiratory failure, elevated TSH, hyperglycemia, hyponatremia, hypokalemia, ROJELIO and rhabdomyolysis. Acute hypoxic respiratory failure (extubated 04/20)- Re-intubated secondary to Stridor and paradoxical breathing. I saw and evaluated the patient and discussed with Nurse Practitioner. I agree with the findings and the plan of care as documented in the Nurse Practitioner's note. I also discussed with Surgeon, Dr. Mohan. Patient is for tracheostomy and PEG tube placement on Friday. 05/07 Hospitalist Physical - Constitutional Vitals: Temp Pulse Resp BP Pulse Ox 98.3 F 71 18 138/57 99 05/05/21 16:00 05/05/21 18:00 05/05/21 18:00 05/05/21 18:00 05/05/21 18:00 HEART Score - HEART Score Troponin: Troponin T 0.065 ng/mL (0.00-0.029) H 04/20/21 03:32 Results - Labs CBC & Chem 7: 05/04/21 04:57 05/05/21 04:55 Labs: Laboratory Last Values WBC 10.2 K/mm3 (4.5-11.0) 05/04/21 04:57 RBC 2.61 M/mm3 (3.65-5.03) L 05/04/21 04:57 Hgb 8.2 gm/dl (10.1-14.3) L 05/04/21 04:57 Hct 25.4 % (30.3-42.9) L 05/04/21 04:57 MCV 98 fl (79-97) H 05/04/21 04:57 MCH 31 pg (28-32) 05/04/21 04:57 MCHC 32 % (30-34) 05/04/21 04:57 RDW 15.3 % (13.2-15.2) H 05/04/21 04:57 Plt Count 321 K/mm3 (140-440) 05/04/21 04:57 Lymph % (Auto) 12.8 % (13.4-35.0) L 04/15/21 17:20 Tripp % (Auto) 4.1 % (0.0-7.3) 04/15/21 17:20 Eos % (Auto) 0.3 % (0.0-4.3) 04/15/21 17:20 Baso % (Auto) 0.4 % (0.0-1.8) 04/15/21 17:20 Lymph # (Auto) 1.4 K/mm3 (1.2-5.4) 04/15/21 17:20 Tripp # (Auto) 0.5 K/mm3 (0.0-0.8) 04/15/21 17:20 Eos # (Auto) 0.0 K/mm3 (0.0-0.4) 04/15/21 17:20 Baso # (Auto) 0.0 K/mm3 (0.0-0.1) 04/15/21 17:20 Add Manual Diff Complete 05/01/21 07:11 Total Counted 100 05/01/21 07:11 Seg Neutrophils % 82.4 % (40.0-70.0) H 04/15/21 17:20 Seg Neuts % (Manual) 80.0 % (40.0-70.0) H 05/01/21 07:11 Band Neutrophils % 7.0 % 05/01/21 07:11 Lymphocytes % (Manual) 5.0 % (13.4-35.0) L 05/01/21 07:11 Monocytes % (Manual) 6.0 % (0.0-7.3) 05/01/21 07:11 Eosinophils % (Manual) 1.0 % (0.0-4.3) 05/01/21 07:11 Metamyelocytes % 1.0 % 05/01/21 07:11 Nucleated RBC % Not Reportable 05/01/21 07:11 Seg Neutrophils # 9.3 K/mm3 (1.8-7.7) H 04/15/21 17:20 Seg Neutrophils # Man 9.8 K/mm3 (1.8-7.7) H 05/01/21 07:11 Band Neutrophils # 0.9 K/mm3 05/01/21 07:11 Lymphocytes # (Manual) 0.6 K/mm3 (1.2-5.4) L 05/01/21 07:11 Abs React Lymphs (Man) 0.0 K/mm3 05/01/21 07:11 Monocytes # (Manual) 0.7 K/mm3 (0.0-0.8) 05/01/21 07:11 Eosinophils # (Manual) 0.1 K/mm3 (0.0-0.4) 05/01/21 07:11 Basophils # (Manual) 0.0 K/mm3 (0.0-0.1) 05/01/21 07:11 Metamyelocytes # 0.1 K/mm3 05/01/21 07:11 Myelocytes # 0.0 K/mm3 05/01/21 07:11 Promyelocytes # 0.0 K/mm3 05/01/21 07:11 Blast Cells # 0.0 K/mm3 05/01/21 07:11 WBC Morphology Not Reportable 05/01/21 07:11 Hypersegmented Neuts Not Reportable 05/01/21 07:11 Hyposegmented Neuts Not Reportable 05/01/21 07:11 Hypogranular Neuts Not Reportable 05/01/21 07:11 Smudge Cells Not Reportable 05/01/21 07:11 Toxic Granulation Not Reportable 05/01/21 07:11 Toxic Vacuolation Not Reportable 05/01/21 07:11 Dohle Bodies Not Reportable 05/01/21 07:11 Pelger-Huet Anomaly Not Reportable 05/01/21 07:11 Peterson Rods Not Reportable 05/01/21 07:11 Platelet Estimate Consistent w auto 05/01/21 07:11 Clumped Platelets Not Reportable 05/01/21 07:11 Plt Clumps, EDTA Not Reportable 05/01/21 07:11 Large Platelets Not Reportable 05/01/21 07:11 Giant Platelets Not Reportable 05/01/21 07:11 Platelet Satelliting Not Reportable 05/01/21 07:11 Plt Morphology Comment Not Reportable 05/01/21 07:11 RBC Morphology Normal 05/01/21 07:11 Dimorphic RBCs Not Reportable 05/01/21 07:11 Polychromasia Not Reportable 05/01/21 07:11 Hypochromasia Not Reportable 05/01/21 07:11 Poikilocytosis Not Reportable 05/01/21 07:11 Anisocytosis Not Reportable 05/01/21 07:11 Microcytosis Not Reportable 05/01/21 07:11 Macrocytosis Not Reportable 05/01/21 07:11 Spherocytes Not Reportable 05/01/21 07:11 Pappenheimer Bodies Not Reportable 05/01/21 07:11 Sickle Cells Not Reportable 05/01/21 07:11 Target Cells Not Reportable 05/01/21 07:11 Tear Drop Cells Not Reportable 05/01/21 07:11 Ovalocytes Not Reportable 05/01/21 07:11 Helmet Cells Not Reportable 05/01/21 07:11 Law-Carlos Bodies Not Reportable 05/01/21 07:11 [place] Rings Not Reportable 05/01/21 07:11 Theo Cells Not Reportable 05/01/21 07:11 Bite Cells Not Reportable 05/01/21 07:11 Crenated Cell Not Reportable 05/01/21 07:11 Elliptocytes Not Reportable 05/01/21 07:11 Acanthocytes (Spur) Not Reportable 05/01/21 07:11 Rouleaux Not Reportable 05/01/21 07:11 Hemoglobin C Crystals Not Reportable 05/01/21 07:11 Schistocytes Not Reportable 05/01/21 07:11 Malaria parasites Not Reportable 05/01/21 07:11 James Bodies Not Reportable 05/01/21 07:11 Hem Pathologist Commnt No 05/01/21 07:11 PT 12.2 Sec. (12.2-14.9) 04/15/21 17:20 INR 0.91 (0.87-1.13) 04/15/21 17:20 APTT 31.8 Sec. (24.2-36.6) 04/15/21 17:20 ABG pH 7.531 (7.320-7.450) H 05/03/21 03:57 POC ABG pCO2 31.0 mmHg (32.0-48.0) L 05/03/21 03:57 POC ABG pO2 64.3 mmHg (83-108) L 05/03/21 03:57 POC ABG HCO3 25.4 05/03/21 03:57 ABG O2 Saturation 93.5 (0-100) 05/03/21 03:57 POC ABG Base Excess 2.9 05/03/21 03:57 ABG Hemoglobin 9.0 (12.0-17.5) L 05/03/21 03:57 ABG Oxyhemoglobin 92.6 (94-98) L 05/03/21 03:57 ABG Methemoglobin 0.3 (0.0-1.5) 05/03/21 03:57 ABG Sodium 145.7 mmol/L (136.0-145.0) H 05/03/21 03:57 ABG Potassium 4.1 mmol/L (3.40-4.50) 05/03/21 03:57 ABG Chloride 112.0 mmol/L (98-107) H 05/03/21 03:57 ABG Glucose 202 mg/dL (65-95) H 05/03/21 03:57 Carboxyhemoglobin 0.7 (0.5-1.5) 05/03/21 03:57 FiO2 % 30.0 05/03/21 03:57 Sodium 141 mmol/L (137-145) 05/05/21 04:55 Potassium 4.4 mmol/L (3.6-5.0) 05/05/21 04:55 Chloride 106.7 mmol/L (98-107) 05/05/21 04:55 Carbon Dioxide 25 mmol/L (22-30) 05/05/21 04:55 Anion Gap 14 mmol/L 05/05/21 04:55 BUN 91 mg/dL (7-17) H 05/05/21 04:55 Creatinine 2.4 mg/dL (0.6-1.2) H 05/05/21 04:55 Estimated GFR 23 ml/min 05/05/21 04:55 BUN/Creatinine Ratio 38 % 05/05/21 04:55 Glucose 255 mg/dL (65-100) H 05/05/21 04:55 POC Glucose 199 mg/dL (70-105) H 05/05/21 11:41 Lactic Acid 1.10 mmol/L (0.7-2.0) 04/26/21 09:30 Calcium 8.9 mg/dL (8.4-10.2) 05/05/21 04:55 Phosphorus 2.60 mg/dL (2.5-4.5) 04/22/21 08:00 Magnesium 2.10 mg/dL (1.7-2.3) 04/23/21 07:02 Total Bilirubin 0.30 mg/dL (0.1-1.2) 04/28/21 04:13 Direct Bilirubin < 0.2 mg/dL (0-0.2) 04/28/21 04:13 Indirect Bilirubin 0.1 mg/dL 04/28/21 04:13 AST 61 units/L (5-40) H 04/28/21 04:13 ALT 64 units/L (7-56) H 04/28/21 04:13 Alkaline Phosphatase 95 units/L (35-129) 04/28/21 04:13 Ammonia 46.0 umol/L (25-60) 04/15/21 17:20 Total Creatine Kinase 427 units/L (30-135) H 04/18/21 05:34 CK-MB (CK-2) 9.1 ng/mL (0.0-4.0) H 04/17/21 15:35 CK-MB (CK-2) Rel Index 1.4 (0-4) 04/17/21 15:35 Troponin T 0.065 ng/mL (0.00-0.029) H 04/20/21 03:32 NT-Pro-B Natriuret Pep 697.9 pg/mL (0-900) 04/15/21 17:20 Total Protein 6.2 g/dL (6.3-8.2) L 04/28/21 04:13 Albumin 2.6 g/dL (3.9-5) L 04/28/21 04:13 Albumin/Globulin Ratio 0.7 % 04/28/21 04:13 Triglycerides 103 mg/dL (2-149) 04/17/21 05:04 Cholesterol 122 mg/dL (50-199) 04/17/21 05:04 LDL Cholesterol Direct 55 mg/dL (50-130) 04/17/21 05:04 HDL Cholesterol 61 mg/dL (40-59) H 04/17/21 05:04 Cholesterol/HDL Ratio 2.00 % 04/17/21 05:04 Procalcitonin 0.20 ng/mL (<0.15) 04/16/21 19:01 TSH 14.190 mlU/mL (0.270-4.200) H 04/15/21 17:20 Thyroxine (T4) 4.1 ug/dL (4.0-12.0) 04/16/21 19:01 Free T3 Index 1.1 pg/mL (2.3-4.2) L 04/16/21 19:01 Arterial Blood Glucose 202 mg/dL (65-95) H 05/03/21 03:57 Arterial Blood Ionized Calcium 5.0 mg/dL (4.6-5.3) 05/03/21 03:57 Urine Color Yellow (Yellow) 04/30/21 17:45 Urine Turbidity Cloudy (Clear) 04/30/21 17:45 Urine pH 5.0 (5.0-7.0) 04/30/21 17:45 Ur Specific [place] 1.016 (1.003-1.030) 04/30/21 17:45 Urine Protein 100 mg/dl mg/dL (Negative) 04/30/21 17:45 Urine Glucose (UA) Neg mg/dL (Negative) 04/30/21 17:45 Urine Ketones Neg mg/dL (Negative) 04/30/21 17:45 Urine Blood Mod (Negative) 04/30/21 17:45 Urine Nitrite Neg (Negative) 04/30/21 17:45 Urine Bilirubin Neg (Negative) 04/30/21 17:45 Urine Urobilinogen < 2.0 mg/dL (<2.0) 04/30/21 17:45 Ur Leukocyte Esterase Mod (Negative) 04/30/21 17:45 Urine WBC (Auto) 48.0 /HPF (0.0-6.0) H 04/30/21 17:45 Urine RBC (Auto) 103.0 /HPF (0.0-6.0) 04/30/21 17:45 U Epithel Cells (Auto) < 1.0 /HPF (0-13.0) 04/16/21 00:09 Urine Bacteria (Auto) 1+ /HPF (Negative) 04/16/21 00:09 Urine Mucus Few /HPF 04/30/21 17:45 Urine Yeast (Budding) 3+ /HPF 04/30/21 17:45 Urine Creatinine 24.4 mg/dL (0.1-20.0) H 04/16/21 00:12 Urine Sodium 97 mmol/L 04/16/21 00:12 Random Vancomycin 15.5 ug/mL (0-40.0) 04/27/21 07:52 Salicylates 4.1 mg/dL (2.8-20.0) 04/15/21 17:20 Acetaminophen 5.0 ug/mL (10.0-30.0) L 04/15/21 17:20 Plasma/Serum Alcohol 0.02 % (0-0.07) 04/15/21 17:20 Coronavirus (PCR) Negative (Negative) 04/16/21 Unknown Microbiology: Microbiology 04/30/21 16:07 Peripheral/Venous Blood Culture - Final NO GROWTH AFTER 5 DAYS 04/30/21 16:07 Peripheral/Venous Blood Culture - Final NO GROWTH AFTER 5 DAYS Kerr/IV: Voiding Method External Female Catheter Active Medications - Current Medications Current Medications: Generic Name Dose Route Start Last Admin Trade Name Freq PRN Reason Stop Dose Admin Acetaminophen 650 mg 04/15/21 19:11 04/30/21 20:14 Acetaminophen 325 Mg Tab PO 650 mg Q6H PRN Administration Pain MILD(1-3)/Fever >100.5/SEXTON Albuterol/Ipratropium 1 ampul 04/24/21 14:00 05/05/21 13:55 Ipratropium/Albuterol Sulfate 3 Ml Ampul.Neb IH 1 ampul Q6HRT WOLFGANG Administration Amlodipine Besylate 10 mg 04/25/21 10:00 05/05/21 10:02 Amlodipine 10 Mg Tab PO 10 mg DAILY WOLFGANG Administration Lipase/Protease/Amylase 1 each 04/16/21 12:52 Lipase 10,500/Protease 25,000/Amylase 43,750 (Units) Dr Simpson FEEDTUBE PRN PRN For Clogged Feeding Tube Aspirin 81 mg 04/25/21 10:00 05/05/21 09:58 Aspirin 81 Mg Tab Chew PO 81 mg QDAY WOLFGANG Administration Bisacodyl 10 mg 04/17/21 11:01 05/03/21 09:50 Bisacodyl 10 Mg Rect Supp [place] 10 mg QDAY PRN Administration Constipation Brimonidine Tartrate 1 drops 04/17/21 22:00 05/05/21 10:00 Brimonidine 0.15% Ophth Soln OU 1 drops BID WOLFGANG Administration Docusate Sodium 100 mg 04/29/21 15:00 05/05/21 09:57 Docusate Sodium 100 Mg/10 Ml Oral Liqd PO 100 mg BID WOLFGANG Administration Epinephrine 0.5 ml 04/21/21 12:56 Epinephrine Racemic 2.25% 0.5ml Nebu IH Q4HRT PRN Shortness Of Breath Famotidine 20 mg 04/17/21 10:00 05/05/21 10:03 Famotidine 20 Mg Tab PO 20 mg DAILY WOLFGANG Administration Fentanyl 50 mcg 04/24/21 13:03 Fentanyl 100 Mcg/2 Ml Inj IV Q10MIN PRN ANALGESIA Heparin Sodium (Porcine) 5,000 unit 04/15/21 22:00 05/05/21 09:59 Heparin 5,000 Unit/1 Ml Vial SUB-Q 5,000 unit Q12HR WOLFGANG Administration Hydralazine HCl 10 mg 04/16/21 18:00 04/24/21 05:25 Hydralazine 20 Mg/1 Ml Inj IV 10 mg Q4HR PRN Administration Hypertension Hydralazine HCl 50 mg 05/03/21 14:00 05/05/21 17:58 Hydralazine 25 Mg Tab PO 50 mg Q8HR WOLFGANG Administration Hydrophilic Ointment 1 applic 04/15/21 17:24 Lip Therapy Vaseline TP Q2HR PRN Dry Lips Fentanyl Citrate 2,000 mcg in 100 mls @ 4.765 mls/hr 04/24/21 14:00 04/25/21 09:15 Fentanyl Drip Premix IV 0 mcg/kg/hr TITR WOLFGANG 0 mls/hr Titration Protocol 1 MCG/KG/HR Propofol 1,000 mg in 100 mls @ 2.859 mls/hr 04/24/21 14:00 04/25/21 09:10 Diprivan 10 Mg/Ml IV 0 mcg/kg/min TITR WOLFGANG 0 mls/hr Titration Protocol 5 MCG/KG/MIN Insulin Human Isoph/Insulin Regular 25 unit 05/05/21 17:00 05/05/21 17:58 Insulin Nph/Regular 70/30 Inj SUB-Q 25 unit BIDDIAB WOLFGANG Administration Insulin Human Lispro 0 unit 04/16/21 15:00 05/05/21 18:00 Insulin Lispro 100 Unit/Ml SUB-Q 4 unit Q6HR WOLFGANG Administration Protocol Latanoprost 1 drops 04/17/21 18:00 05/05/21 17:59 Latanoprost 0.005% Ophth Soln 2.5 Ml OU 1 drops QPM WOLFGANG Administration Levothyroxine Sodium 25 mcg 04/19/21 06:00 05/05/21 05:30 Levothyroxine 25 Mcg Tab PO 25 mcg DAILY@0600 WOLFGANG Administration Metoprolol Tartrate 25 mg 04/19/21 10:00 05/05/21 09:58 Metoprolol Tartrate 25 Mg Tab PO 25 mg BID WOLFGANG Administration Multi-Ingred Cream/Lotion/Oil/Oint 1 applic 04/15/21 17:24 05/04/21 09:25 Mineral Oil/Petrolatum, White Ophth Oint 3.5 Gm OU 1 applic Q4HR PRN Administration Dry Eye(s) Pravastatin Sodium 20 mg 04/19/21 22:00 05/04/21 21:48 Pravastatin 20 Mg Tab PO 20 mg QHS WOLFGANG Administration Scopolamine 1 each 04/20/21 18:00 05/05/21 09:59 Scopolamine Transdermal Patch 72 Hr TD 1 each Q3D WOLFGANG Administration Simple Syrup 15 ml 04/16/21 12:52 Simple Syrup 15 Ml FEEDTUBE PRN PRN Hypoglycemia Simple Syrup 30 ml 04/16/21 12:52 Simple Syrup 15 Ml FEEDTUBE PRN PRN Hypoglycemia Sodium Bicarbonate 325 mg 05/17/21 12:52 Sodium Bicarbonate 325 Mg Tab FEEDTUBE PRN PRN For Clogged Feeding Tube Sodium Chloride 10 ml 04/15/21 22:00 05/05/21 10:02 Sodium Chloride 0.9% 10 Ml Flush Syringe IV 10 ml BID WOLFGANG Administration Sodium Chloride 10 ml 04/15/21 19:11 04/24/21 05:27 Sodium Chloride 0.9% 10 Ml Flush Syringe IV 10 ml PRN PRN Administration LINE FLUSH Tamsulosin HCl 0.4 mg 04/25/21 14:00 05/05/21 09:57 Tamsulosin 0.4 Mg Cap PO 0.4 mg QDAY WOLFGANG Administration Timolol Maleate 1 drops 04/19/21 10:00 05/05/21 09:59 Timolol 0.5% Ophth Soln 5 Ml OU 1 drops QDAY WOLFGANG Administration Nutrition/Malnutrition Assess - Dietary Evaluation Nutrition/Malnutrition Findings: Nutrition Notes Start: 04/16/21 12:31 Freq: Status: Active Protocol: Document 04/30/21 09:36 LP (Rec: 04/30/21 09:39 LP [email or web address]) Nutrition Notes Initial or Follow up Reassessment Current Diagnosis Acute Kidney Injury,Coronary Artery Disease,Diabetes, Hypertension Other Pertinent Diagnosis UTI, acute metabolic encephalopathy Current Diet Glucerna 1.2 at 50ml/hr Labs/Tests BUN 118 Cr 3.3 BG 263 Pertinent Medications Reviewed Height 5 ft 6 in Weight 93 kg [place] Body Weight (kg) 59.09 BMI 33.0 Weight Status Obese Subjective/Other Information Pt tolerating TF at goal rate. Pt on vent. Percent of energy/protein needs met: 100% energy 61% pro Burn Absent Trauma Absent Difficulty In Swallowing Current % PO Negligible Minimum of two criteria No physical signs of malnutrition #1 Nutrition Diagnosis Inadequate oral intake Diagnosis Progress(for reassessment Continues documentation) Is patient on ventilator? Yes Is Patient Ambulatory and/or Out of Bed No REE-([facility]-confined to bed) 1700.760 Kcal/Kg value to use for calculation 15 Approximate Energy Requirements Using 1395 kcal/Kg Calculation Used for Recommendations Kcal/kg Additional Notes Pro needs >2g/kg IBW: >118g/ day Fluid needs 1ml/kcal Nutrition Intervention Change Diet Order: TF Nutrition Support: Continue Glucerna 1.2 at 50ml/ hr with 50ml water flush q4h. Kcal 1,440 Protein (gm) 72 Fluid (mL) 966 Goal #1 TF tolerance Goal #2 TF to meet energy and pro needs as best possible Anticipated Discharge Needs: unable to determine at this time Follow-Up By: 05/07/21 Additional Comments Follow for stable TF
--- NOTE | 2021-05-05 14:33 | Progress Note ---
Assessment and Plan 1. Acute kidney injury: Vasomotor ROJELIO. ATN likely. Renal US negative for hydro. Baseline renal function is unknown. Monitor renal function. Non-oliguric. Creatinine level is improving. Renal prognosis is guarded. Avoid nephrotoxic agents. Meds dosage based on GFR. Monitor for [employer] needs. 2. FEN: Hypokalemia, improved, monitor. Hypernatremia, improved, monitor. Monitor lytes and volume status. 3. Acute hypoxemic respiratory failure: Extubated, re-intubated 04/24. 4. Acute encephalopathy: MRI brain negative. Seen by Neuro. 5. UTI: Pseudomonas and Earline. 6. Hypertension. 7. DM type 2. 8. Mild rhabdomyolysis. 9. Mildly complex R renal cyst. Subjective: Patient was seen and examined at the bedside. Examination: General appearance: well-developed, appears stated age, intubated on vent HEENT: BRUCE, atraumatic Neck: trachea midline Respiratory: Coarse breath sounds heard Heart: S1S2, no murmur Abdomen: soft, obese, bowel sounds heard, NT Integumentary: no obvious rash Neurologic: stuporous Ext: no edema noted Subjective Date of service: 05/05/21 Principal diagnosis: Ac. resp failure; AMS; Hypoglycemia; ROJELIO; Hyperkalemia; DM II Objective - Vital Signs Vital signs: Vital Signs - 12hr 05/05/21 05/05/21 05/05/21 03:01 03:23 04:00 Temperature 98.2 F Pulse Rate 68 70 Pulse Rate [ Bilateral] Respiratory 19 Rate Respiratory Rate [Bilateral ] Blood Pressure 117/68 O2 Sat by Pulse 100 96 Oximetry 05/05/21 05/05/21 05/05/21 04:01 04:08 05:01 Temperature Pulse Rate 72 72 70 Pulse Rate [ Bilateral] Respiratory 19 19 Rate Respiratory Rate [Bilateral ] Blood Pressure 111/60 111/60 99/66 O2 Sat by Pulse 100 100 100 Oximetry 05/05/21 05/05/21 05/05/21 05:26 06:01 07:01 Temperature Pulse Rate 79 73 68 Pulse Rate [ Bilateral] Respiratory 16 20 Rate Respiratory Rate [Bilateral ] Blood Pressure 111/60 111/60 116/74 O2 Sat by Pulse 100 100 Oximetry 05/05/21 05/05/21 05/05/21 07:20 08:00 08:01 Temperature 98.0 F Pulse Rate 63 67 Pulse Rate [ 65 Bilateral] Respiratory 18 Rate Respiratory 20 Rate [Bilateral ] Blood Pressure 137/59 126/63 O2 Sat by Pulse 100 96 100 Oximetry 05/05/21 05/05/21 05/05/21 09:01 09:58 10:00 Temperature Pulse Rate 76 73 72 Pulse Rate [ Bilateral] Respiratory 21 20 Rate Respiratory Rate [Bilateral ] Blood Pressure 142/64 142/64 O2 Sat by Pulse 100 100 Oximetry 05/05/21 05/05/21 05/05/21 10:02 11:00 11:20 Temperature Pulse Rate 74 61 64 Pulse Rate [ Bilateral] Respiratory 18 20 Rate Respiratory Rate [Bilateral ] Blood Pressure 142/64 152/61 116/43 O2 Sat by Pulse 100 100 Oximetry 05/05/21 05/05/21 12:00 13:55 Temperature 98.2 F Pulse Rate Pulse Rate [ 70 Bilateral] Respiratory Rate Respiratory 22 Rate [Bilateral ] Blood Pressure O2 Sat by Pulse Oximetry - Lab 05/04/21 04:57 05/05/21 04:55 Most recent lab results ABG pH 7.531 (7.320-7.450) H 05/03/21 03:57 ABG O2 Saturation 93.5 (0-100) 05/03/21 03:57 Calcium 8.9 mg/dL (8.4-10.2) 05/05/21 04:55 Phosphorus 2.60 mg/dL (2.5-4.5) 04/22/21 08:00 Magnesium 2.10 mg/dL (1.7-2.3) 04/23/21 07:02 Urine Creatinine 24.4 mg/dL (0.1-20.0) H 04/16/21 00:12 Urine Sodium 97 mmol/L 04/16/21 00:12 Medications & Allergies - Medications Allergies/Adverse Reactions: Allergies No Known Allergies Allergy (Unverified 04/15/21 17:41) Home Medications: Home Medications Medication Instructions Recorded Confirmed Last Taken Type Betaxolol HCl [Betoptic S 0.25% 1 drop OU BID 04/16/21 04/16/21 Unknown History SUSP] Bimatoprost [Lumigan 0.01%] 1 drop OU QPM 04/16/21 04/16/21 Unknown History Brimonidine Tartrate [Brimonidine 5 ml OU BID 04/16/21 04/16/21 Unknown History Tartrate 0.2%] Furosemide [Lasix TAB] 40 mg PO QDAY 04/16/21 04/16/21 Unknown History Gabapentin [Neurontin] 300 mg PO Q8HR 04/16/21 04/16/21 Unknown History HYDROcodone/APAP 10-325 [[place] 1 each PO Q6HR PRN 04/16/21 04/16/21 Unknown History 10/325] Hydralazine HCl 50 mg PO Q4HR 04/16/21 04/16/21 Unknown History Insulin Aspart Prot/Insuln Asp 52 units SQ HS 04/16/21 04/16/21 Unknown History [Novolog Mix 70-30 Flexpen] Metoprolol [Lopressor] 25 mg PO BID 04/16/21 04/16/21 Unknown History Pravastatin [Pravachol] 20 mg PO QHS 04/16/21 04/16/21 Unknown History Promethazine [Phenergan] 25 mg PO Q6HR 04/16/21 04/16/21 Unknown History allopurinoL [Zyloprim] 150 mg PO QDAY 04/16/21 04/16/21 Unknown History Active Medications: Generic Name Dose Route Start Last Admin Trade Name Freq PRN Reason Stop Dose Admin Acetaminophen 650 mg 04/15/21 19:11 04/30/21 20:14 Acetaminophen 325 Mg Tab PO 650 mg Q6H PRN Administration Pain MILD(1-3)/Fever >100.5/SEXTON Albuterol/Ipratropium 1 ampul 04/24/21 14:00 05/05/21 13:55 Ipratropium/Albuterol Sulfate 3 Ml Ampul.Neb IH 1 ampul Q6HRT WOLFGANG Administration Amlodipine Besylate 10 mg 04/25/21 10:00 05/05/21 10:02 Amlodipine 10 Mg Tab PO 10 mg DAILY WOLFGANG Administration Lipase/Protease/Amylase 1 each 04/16/21 12:52 Lipase 10,500/Protease 25,000/Amylase 43,750 (Units) Dr Calvin DIAZ PRN PRN For Clogged Feeding Tube Aspirin 81 mg 04/25/21 10:00 05/05/21 09:58 Aspirin 81 Mg Tab Chew PO 81 mg QDAY WOLFGANG Administration Bisacodyl 10 mg 04/17/21 11:01 05/03/21 09:50 Bisacodyl 10 Mg Rect Supp RI 10 mg QDAY PRN Administration Constipation Brimonidine Tartrate 1 drops 04/17/21 22:00 05/05/21 10:00 Brimonidine 0.15% Ophth Soln OU 1 drops BID WOLFGANG Administration Docusate Sodium 100 mg 04/29/21 15:00 05/05/21 09:57 Docusate Sodium 100 Mg/10 Ml Oral Liqd PO 100 mg BID WOLFGANG Administration Epinephrine 0.5 ml 04/21/21 12:56 Epinephrine Racemic 2.25% 0.5ml Nebu IH Q4HRT PRN Shortness Of Breath Famotidine 20 mg 04/17/21 10:00 05/05/21 10:03 Famotidine 20 Mg Tab PO 20 mg DAILY WOLFGANG Administration Fentanyl 50 mcg 04/24/21 13:03 Fentanyl 100 Mcg/2 Ml Inj IV Q10MIN PRN ANALGESIA Heparin Sodium (Porcine) 5,000 unit 04/15/21 22:00 05/05/21 09:59 Heparin 5,000 Unit/1 Ml Vial SUB-Q 5,000 unit Q12HR WOLFGANG Administration Hydralazine HCl 10 mg 04/16/21 18:00 04/24/21 05:25 Hydralazine 20 Mg/1 Ml Inj IV 10 mg Q4HR PRN Administration Hypertension Hydralazine HCl 50 mg 05/03/21 14:00 05/05/21 05:26 Hydralazine 25 Mg Tab PO Not Given Q8HR WOLFGANG Hydrophilic Ointment 1 applic 04/15/21 17:24 Lip Therapy Vaseline TP Q2HR PRN Dry Lips Fentanyl Citrate 2,000 mcg in 100 mls @ 4.765 mls/hr 04/24/21 14:00 04/25/21 09:15 Fentanyl Drip Premix IV 0 mcg/kg/hr TITR WOLFGANG 0 mls/hr Titration Protocol 1 MCG/KG/HR Propofol 1,000 mg in 100 mls @ 2.859 mls/hr 04/24/21 14:00 04/25/21 09:10 Diprivan 10 Mg/Ml IV 0 mcg/kg/min TITR WOLFGANG 0 mls/hr Titration Protocol 5 MCG/KG/MIN Cefepime HCl 2 gm in 100 mls @ 200 mls/hr 05/03/21 18:00 05/04/21 18:10 Cefepime/Ns 2 Gm/100 Ml IV 05/05/21 18:29 200 mls/hr Q24H WOLFGANG Administration Protocol Insulin Human Isoph/Insulin Regular 25 unit 05/05/21 17:00 Insulin Nph/Regular 70/30 Inj SUB-Q BIDDIAB WOLFGANG Insulin Human Lispro 0 unit 04/16/21 15:00 05/05/21 05:30 Insulin Lispro 100 Unit/Ml SUB-Q 4 unit Q6HR WOLFGANG Administration Protocol Latanoprost 1 drops 04/17/21 18:00 05/04/21 18:06 Latanoprost 0.005% Ophth Soln 2.5 Ml OU 1 drops QPM WOLFGANG Administration Levothyroxine Sodium 25 mcg 04/19/21 06:00 05/05/21 05:30 Levothyroxine 25 Mcg Tab PO 25 mcg DAILY@0600 WOLFGANG Administration Metoprolol Tartrate 25 mg 04/19/21 10:00 05/05/21 09:58 Metoprolol Tartrate 25 Mg Tab PO 25 mg BID WOLFGANG Administration Multi-Ingred Cream/Lotion/Oil/Oint 1 applic 04/15/21 17:24 05/04/21 09:25 Mineral Oil/Petrolatum, White Ophth Oint 3.5 Gm OU 1 applic Q4HR PRN Administration Dry Eye(s) Pravastatin Sodium 20 mg 04/19/21 22:00 05/04/21 21:48 Pravastatin 20 Mg Tab PO 20 mg QHS WOLFGANG Administration Scopolamine 1 each 04/20/21 18:00 05/05/21 09:59 Scopolamine Transdermal Patch 72 Hr TD 1 each Q3D WOLFGANG Administration Simple Syrup 15 ml 04/16/21 12:52 Simple Syrup 15 Ml FEEDTUBE PRN PRN Hypoglycemia Simple Syrup 30 ml 04/16/21 12:52 Simple Syrup 15 Ml FEEDTUBE PRN PRN Hypoglycemia Sodium Bicarbonate 325 mg 04/16/21 12:52 Sodium Bicarbonate 325 Mg Tab FEEDTUBE PRN PRN For Clogged Feeding Tube Sodium Chloride 10 ml 04/15/21 22:00 05/05/21 10:02 Sodium Chloride 0.9% 10 Ml Flush Syringe IV 10 ml BID WOLFGANG Administration Sodium Chloride 10 ml 04/15/21 19:11 04/24/21 05:27 Sodium Chloride 0.9% 10 Ml Flush Syringe IV 10 ml PRN PRN Administration LINE FLUSH Tamsulosin HCl 0.4 mg 04/25/21 14:00 05/05/21 09:57 Tamsulosin 0.4 Mg Cap PO 0.4 mg QDAY WOLFGANG Administration Timolol Maleate 1 drops 04/19/21 10:00 05/05/21 09:59 Timolol 0.5% Ophth Soln 5 Ml OU 1 drops QDAY WOLFGANG Administration
[2021-05-05] MEDS: INSULIN NPH/REGULAR 70/30 INJ SUB-Q SCH (17:58)
[2021-05-05] MEDS: LATANOPROST 0.005% OPHTH SOLN 2.5 ML OU SCH (17:59)
[2021-05-05] MEDS: CEFEPIME/NS 2 GM/100 ML 2 GM/100 ML BAG IV SCH (18:01)
[2021-05-05] MEDS: PRAVASTATIN 20 MG TAB PO SCH (21:43)
[2021-05-06] MEDS: INSULIN LISPRO 100 UNIT/ML SUB-Q SCH ×4 (00:31→17:12)
[2021-05-06] MEDS: IPRATROPIUM/ALBUTEROL SULFATE 3 ML AMPUL.NEB IH SCH ×4 (04:25→19:06)
[2021-05-06] MEDS: hydrALAZINE 25 MG TAB PO SCH ×3 (06:44→21:27)
[2021-05-06] MEDS: LEVOTHYROXINE 25 MCG TAB PO SCH (06:50)
[2021-05-06 07:54] LABS: Calcium 9.8 mg/dL (8.4-10.2)
--- NOTE | 2021-05-06 08:04 | XRay Report ---
ABDOMEN 1 VIEW(S) 05/06/2021 7:40 AM INDICATION: Tube placement. COMPARISON: Prior chest radiograph 04/30/2021. FINDINGS: The tip of the transpyloric feeding tube is in relatively stable position when compared to the prior exam 04/30/2021. Advancement approximately 8.5 cm is recommended for improved positioning. Signer Name: Kris Carmen MD Signed: 05/06/2021 7:59 AM Workstation Name: [id number]
[2021-05-06] MEDS: BRIMONIDINE 0.15% OPHTH SOLN OU SCH ×2 (09:32→21:28)
[2021-05-06] MEDS: amLODIPine 10 MG TAB PO SCH (09:32)
[2021-05-06] MEDS: ASPIRIN 81 MG TAB CHEW PO SCH (09:32)
[2021-05-06] MEDS: INSULIN NPH/REGULAR 70/30 INJ SUB-Q SCH ×2 (09:32→17:11)
[2021-05-06] MEDS: FAMOTIDINE 20 MG TAB PO SCH (09:33)
[2021-05-06] MEDS: METOPROLOL TARTRATE 25 MG TAB PO SCH ×2 (09:33→21:27)
[2021-05-06] MEDS: DOCUSATE SODIUM 100 MG/10 ML ORAL LIQD PO SCH ×2 (09:33→21:28)
[2021-05-06] MEDS: HEPARIN 5,000 UNIT/1 ML VIAL SUB-Q SCH ×2 (09:33→21:29)
[2021-05-06] MEDS: TAMSULOSIN 0.4 MG CAP PO SCH (09:33)
[2021-05-06] MEDS: TIMOLOL 0.5% OPHTH SOLN 5 ML OU SCH (09:34)
--- NOTE | 2021-05-06 09:34 | XRay Report ---
ABDOMEN 1 VIEW(S) 05/06/2021 9:13 AM INDICATION: NGT placement. COMPARISON: Prior abdominal radiograph 05/06/2021 FINDINGS: The tip of the transpyloric feeding tube has been advanced, now in appropriate position. Signer Name: Kris Carmen MD Signed: 05/06/2021 9:30 AM Workstation Name: [id number]
--- NOTE | 2021-05-06 12:02 | Progress Note ---
<DARSHANAMoniquePURNIMAElvia - Last Filed: 05/06/21 11:57> Assessment and Plan Assessment and plan: This is a 80-year-old female with HTN, DM, HI, breast CA s/p double mastectomy, TIA who presented with hypoglycemia, AMS who was admitted with SIRS, symptomatic bradycardia, acute metabolic encephalopathy, acute hypoxic respiratory failure, elevated TSH, hyperglycemia, hyponatremia, hypokalemia, ROJELIO and rhabdomyolysis Acute metabolic encephalopathy-persist Acute hypoxic respiratory failure (extubated 04/20)- Re-intubated secondary to Stridor and paradoxical breathing First-degree heart block Resolved ileus versus mechanical obstruction Acute kidney injury with vasomotor nephropathy UTI, Pseudomonas/ Earline Elevated TSH Mild rhabdomyolysis Hypertension Diabetes mellitus with hyperglycemia on admission CAD Hypothyroidism Chronic illness debilitymyopathy Obesity -[facility], nephrology, neurology, cardiology consulted, patient recommendations -S/p D10 and D5W gtt, on TF -S/p IV calcium gluconate, regular insulin, D50 -S/p transcutaneous pacing, intermittent demand pacer in place -Renal ultrasound findings consistent with acute on chronic kidney disease, mildly complex right renal cyst -Blood pressure monitoring per protocol -Accu-Cheks every 6, SSI, long acting insulin -IV hydralazine as needed -04/25 EEG is mildly abnormal with mild slowing noted throughout the recording, suggestive of mild cortical dysfunction and/or drug effect -04/20 EEG shows mildly abnormal record due to diffuse background slowing noted throughout the recording, intermittent motion artifact, patient intubated and sedated at time of study, no sign of seizures as well epilepticus noted, possible toxic metabolic encephalopathy, drug effect, possible postictal state cannot be totally excluded. -Avoid ACEi/ARB in setting of ROJELIO -Avoid AV arron blocking agents -Avoid nephrotoxic agents and renally dose medications -BB, add home antihtn regimen as needed -TSH 14.1, T4 4.1, T3 1.1-started on levothyroxine -As needed racemic epinephrine -S/p steroids -s/p Antibiotic therapy -Trend CBC, BMP DVT/GI prophylaxis: Heparin subcu, PPI, SCDs to bilateral lower extremities while in bed Disposition: ICU The high probability of a clinically significant, sudden or life threatening deterioration of the [PULMONARY, CARDIAC, RENAL] system(s) required my full and direct attention, intervention and personal management. The aggregate critical care time was [35] minutes. This time is in addition to time spent performing reported procedures but includes the following: [X] Data Review and interpretation [X] Patient assessment and monitoring of vital signs [X] Documentation [X] Medication orders and management History Interval history: This is a 80-year-old female with hypertension, diabetes mellitus, HI, breast cancer s/p double mastectomy, and a TIA who presented with hypoglycemia and altered mental status on 04/15 via EMS. Per EMS patient was unresponsive on their arrival and her blood glucose was 38 and she received 1 amp of dextrose patient continued to be unresponsive and only moaned with her eyes deviating to the left. Work-up in the emergency department revealed SIRS, symptomatic b radycardia, acute metabolic encephalopathy, acute hypoxic respiratory failure, elevated TSH, hyperglycemia, hyponatremia, hyperkalemia, acute kidney injury with ATN, and rhabdomyolysis 04/16: Neurology consulted, COVID-19 PCR negative, D10 drip decreased and eventually discontinued by [facility] and started on D5W for 1 L. Hydralazine as needed. Patient had hyper kalemia today and was treated with D50, insulin and Kayexalate. This time examination patient is on assist control tidal volume 450, rate of 16, PEEP of 6 and 25% FiO2. 04/17: Patient started on low-dose beta-angel per cardiology, CPAP trial again per [facility], BUN/creatinine holding steady and hypochloremia/hyponatremia slightly improved and hypokalemia has resolved. This morning a KUB was obtained which was concerning for ileus versus mechanical obstruction and surgery was consulted. Patient was made n.p.o. and NG tube placed to wall suction. Patient was given suppository. Per RN patient did not have a BM even though she was g iven Kayexalate yesterday. Will obtain a KUB in the a.m. Neurology was consulted yesterday and will await further recommendations. Nephew updated at bedside today, Carlos Romero. 04/18: Neurology has ordered EEG/MRI B, [facility] continues to wean MV. Persistent low grade temperature so we will obtain BCx2/UA. Patient has improving leukocytosis, hyponatremia, renal function studies and hypochloremia. She has hypokalemia today which is being repleted. Surgery has signed off today and has okayed res umption of TF. [facility] will trial CPAP for longer today and plans to attempt extubation in AM. Family has requested transfer to [facility] and Dr. Gordon will attempt to contact transfer center. I updated her nephew, Carlos Romero over the phone today abouyt current events and update on transfer ([facility] will conduct a utilization review) 04/19: This morning patient is on CPAP trial at the time of examination, noted to be hypertensive and metoprolol increased to home dose, started on synthroid by [facility], lantus started re hyperglycemia, MRI completed with no acute findings. Severe hypokalemia (repleted and Mg pending). [facility] will contact CPAP trial again today with possible trial extubation tomorrow. 04/20: Patient's leukocytosis and kidney function tests continue to improve. Patient is hypertensive overnight we will restart home hydralazine. [facility] plans to extubate patient today. Family is attempting to transfer to another facility. EEG pending, RT will atmept to contact animal technician. Urine culture grew gram negative rods. Increase in lantus 04/21: Increase in Lantus, repleted phos. Patient has started this afternoon and was given racemic epinephrine and started on steroids. Patient will have BiPAP as needed. We will recheck BMP in the a.m. renal function studies continues to decrease. Patient has been hypertensive on evaluation regimen has been changed. 04/22: Lantus increased for hyperglycemia and add amlodipine for better BP control. Patient is on steroids. OT suctioned by RN with catheter in oral care kit and received copious amounts of secretions. Cr continues to decrease. Culture grew Pseudomonas and was changed in accordance to sensitivity. Kerr removed today after clearance from nephrology. 04/23: MRI of the brain was done and unremarkable. Will obtain reconsult to neph rology for further assistance as patient remains in profound encephalopathy despite improvement of blood sugar. Will repeat chest x-ray as patient does have significant congestion physical exam. Tube feeds still ongoing. Continue aspiration precautions. Continue antibiotics when completed for Pseudomonas management 04/24: Neurology input noted, patient unfortunately with no improvement mental status milton, continues with congestion, will defer with Manager Clinical Informatics for lasix in the setting of renal failure. will give kayexlate for hyperkalemia, still moans and groans, mittens in place. 04/25: Patient currently intubated, on restraints for safety, Profund encephalopathy persist, although awake she is not following any commands, Call placed to [facility] to see if they will accept transfer for ENT evaluation, while CT neck was negative, it was degraded by motion and unable to determent why rakel frank had this stridor, Racemic Epinephrine was given, [facility] is on ICU saturation, but will call back with an ENT to discuss case. Renal function mildly worse, continue to monitor. Per cardiology, no further arrhythmias noted since admission. Given short duration of atrial fibrillation, along with pt's age, renal fxn, and other co- morbidities,...will resume additional medical therapies for underlying severe multi-vessel CAD (bASA & Plavix). Pt has previously declined intervention of known lesions as per her Primary Medical Records Analyst. 04/26: Now with febrile illness, ?developing infection, start on empiric abx, check lactate level, blood cultures, continue management per Patient Navigator, Monitor leukocytosis, agree with Trach, family updated about denials in transfer request from outside hospitals. 04/27: WBC improving some, still with fever despite antibotics, ID consulted. CXR clear, continue current management, Trach will be planned if ok with family. Blood sugar remains elevated, will adjust insulin LANTUS to 40 units. Patient had previously completed Cefepime. Mental status remains unchanged, still moves upper ext. continue restraints 04/28: Continue supportive care. No new fever noted. Critical care physician will determine if patient should be have a trial of extubation again or if we should proceed straight to trach. Again continue to monitor mental status for complete improvement. 04/29: Per Patient Navigator discussion with family, will proceed to Tracheostomy, Patients mental status still fluctuating, Continue current management. Surgeon consulted. 04/30: General surgery consulted for trach, continue to trend CBC and BMP. Kidney function slightly worsened today. Increase in Lantus. Tmax 100.2, per ID will consider imaging if leukocytosis remains elevated with fevers. Plavix held for possible tracheostomy next week. 05/01: Patient fever curve is trending down with improving leukocytosis. Patient renal function worsened today. She remains hyperglycemic and her Lantus was increased to her home dose of Novolin 70/30. Patient was rate controlled yesterday due to T-max of 101. She remains on CMV tidal volume 450, rate of 10, PEEP of 6 and 30% FiO2. We will increase the water flushes given slight hypernatremia. Dr. Andrea updated nephew (Carlos) at bedside. CPAP trails. 05/02: Patient's hypernatremia and hyperchloremia slightly worsened and femur fractures were increased. Kidney functions remain the same however BUN is in the 100s. Nephrology is following. Kerr catheter was removed. Awaiting trach placement with possibility on Friday. 05/03: Patient grew Earline in her urine culture however per ID and the Kerr was already exchanged. Patient is on cefepime and Flagyl. Plavix still on hold awaiting trach. CCM started the patient on half-normal saline at 75 mL/h for 2 L related to azatoma and hypernatremia. Patient mental status continues to wax and wane. Creatinine is 3.1 today from 3.4 yesterday. Patient had a bowel movement today. Patient remains hyperglycemic and Lantus was changed from a.m. to p.m.. 05/04: Patient's renal function is improving, surgery obtain consent for trach/PEG scheduled for 05/07, antibiotics to end tomorrow. We will obtain BMP in the a.m. Lantus dosage change from AC to at bedtime in hopes of better glycemic control. 05/05: Patient Lantus dose is changed to twice daily in hopes of better glycemic control. Awaiting surgical procedure hopefully on Friday. Patient's BUN/creatinine improved and hypernatremia has resolved. 05/06: Patient has slight hypernatremia and hyperchloremia and improvement to BU N/creatinine. Better glycemic control. Awaiting trach on Friday. NGT was displaced but now replaced and TF resumed. Hospitalist Physical - Constitutional Vitals: Temp Pulse Resp BP Pulse Ox 98.5 F 74 20 148/104 99 05/06/21 08:00 05/06/21 11:00 05/06/21 11:00 05/06/21 11:05/06/21 11:00 General appearance: Present: no acute distress, other (Resting on mechanical ventilation) - EENT Eyes: Present: PERRL, EOM intact - Neck Neck: Present: normal ROM - Respiratory Respiratory effort: normal Respiratory: bilateral: diminished - Cardiovascular Rhythm: regular Heart Sounds: Present: S1 & S2. Absent: systolic murmur, diastolic murmur - Extremities Extremities: no ischemia, pulses intact, pulses symmetrical, normal temperature, normal color Peripheral Pulses: within normal limits - Abdominal General gastrointestinal: soft, non-tender, non-distended, normal bowel sounds - Integumentary Integumentary: Present: warm, dry - Psychiatric Psychiatric: cooperative - Neurologic Neurologic: moves all extremities - Allied Health Allied health notes reviewed: nursing, RT HEART Score - HEART Score Troponin: Troponin T 0.065 ng/mL (0.00-0.029) H 04/20/21 03:32 Results - Labs CBC & Chem 7: 05/04/21 04:57 05/06/21 07:12 Labs: Laboratory Last Values WBC 10.2 K/mm3 (4.5-11.0) 05/04/21 04:57 RBC 2.61 M/mm3 (3.65-5.03) L 05/04/21 04:57 Hgb 8.2 gm/dl (10.1-14.3) L 05/04/21 04:57 Hct 25.4 % (30.3-42.9) L 05/04/21 04:57 MCV 98 fl (79-97) H 05/04/21 04:57 MCH 31 pg (28-32) 05/04/21 04:57 MCHC 32 % (30-34) 05/04/21 04:57 RDW 15.3 % (13.2-15.2) H 05/04/21 04:57 Plt Count 321 K/mm3 (140-440) 05/04/21 04:57 Lymph % (Auto) 12.8 % (13.4-35.0) L 04/15/21 17:20 [place] % (Auto) 4.1 % (0.0-7.3) 04/15/21 17:20 Eos % (Auto) 0.3 % (0.0-4.3) 04/15/21 17:20 Baso % (Auto) 0.4 % (0.0-1.8) 04/15/21 17:20 Lymph # (Auto) 1.4 K/mm3 (1.2-5.4) 04/15/21 17:20 [place] # (Auto) 0.5 K/mm3 (0.0-0.8) 04/15/21 17:20 Eos # (Auto) 0.0 K/mm3 (0.0-0.4) 04/15/21 17:20 Baso # (Auto) 0.0 K/mm3 (0.0-0.1) 04/15/21 17:20 Add Manual Diff Complete 05/01/21 07:11 Total Counted 100 05/01/21 07:11 Seg Neutrophils % 82.4 % (40.0-70.0) H 04/15/21 17:20 Seg Neuts % (Manual) 80.0 % (40.0-70.0) H 05/01/21 07:11 Band Neutrophils % 7.0 % 05/01/21 07:11 Lymphocytes % (Manual) 5.0 % (13.4-35.0) L 05/01/21 07:11 Monocytes % (Manual) 6.0 % (0.0-7.3) 05/01/21 07:11 Eosinophils % (Manual) 1.0 % (0.0-4.3) 05/01/21 07:11 Metamyelocytes % 1.0 % 05/01/21 07:11 Nucleated RBC % Not Reportable 05/01/21 07:11 Seg Neutrophils # 9.3 K/mm3 (1.8-7.7) H 04/15/21 17:20 Seg Neutrophils # Man 9.8 K/mm3 (1.8-7.7) H 05/01/21 07:11 Band Neutrophils # 0.9 K/mm3 05/01/21 07:11 Lymphocytes # (Manual) 0.6 K/mm3 (1.2-5.4) L 05/01/21 07:11 Abs React Lymphs (Man) 0.0 K/mm3 05/01/21 07:11 Monocytes # (Manual) 0.7 K/mm3 (0.0-0.8) 05/01/21 07:11 Eosinophils # (Manual) 0.1 K/mm3 (0.0-0.4) 05/01/21 07:11 Basophils # (Manual) 0.0 K/mm3 (0.0-0.1) 05/01/21 07:11 Metamyelocytes # 0.1 K/mm3 05/01/21 07:11 Myelocytes # 0.0 K/mm3 05/01/21 07:11 Promyelocytes # 0.0 K/mm3 05/01/21 07:11 Blast Cells # 0.0 K/mm3 05/01/21 07:11 WBC Morphology Not Reportable 05/01/21 07:11 Hypersegmented Neuts Not Reportable 05/01/21 07:11 Hyposegmented Neuts Not Reportable 05/01/21 07:11 Hypogranular Neuts Not Reportable 05/01/21 07:11 Smudge Cells Not Reportable 05/01/21 07:11 Toxic Granulation Not Reportable 05/01/21 07:11 Toxic Vacuolation Not Reportable 05/01/21 07:11 Dohle Bodies Not Reportable 05/01/21 07:11 Pelger-Huet Anomaly Not Reportable 05/01/21 07:11 Peterson Rods Not Reportable 05/01/21 07:11 Platelet Estimate Consistent w auto 05/01/21 07:11 Clumped Platelets Not Reportable 05/01/21 07:11 Plt Clumps, EDTA Not Reportable 05/01/21 07:11 Large Platelets Not Reportable 05/01/21 07:11 Giant Platelets Not Reportable 05/01/21 07:11 Platelet Satelliting Not Reportable 05/01/21 07:11 Plt Morphology Comment Not Reportable 05/01/21 07:11 RBC Morphology Normal 05/01/21 07:11 Dimorphic RBCs Not Reportable 05/01/21 07:11 Polychromasia Not Reportable 05/01/21 07:11 Hypochromasia Not Reportable 05/01/21 07:11 Poikilocytosis Not Reportable 05/01/21 07:11 Anisocytosis Not Reportable 05/01/21 07:11 Microcytosis Not Reportable 05/01/21 07:11 Macrocytosis Not Reportable 05/01/21 07:11 Spherocytes Not Reportable 05/01/21 07:11 Pappenheimer Bodies Not Reportable 05/01/21 07:11 Sickle Cells Not Reportable 05/01/21 07:11 Target Cells Not Reportable 05/01/21 07:11 Tear Drop Cells Not Reportable 05/01/21 07:11 Ovalocytes Not Reportable 05/01/21 07:11 Helmet Cells Not Reportable 05/01/21 07:11 [place] Bodies Not Reportable 05/01/21 07:11 [place] Rings Not Reportable 05/01/21 07:11 [place] Cells Not Reportable 05/01/21 07:11 Bite Cells Not Reportable 05/01/21 07:11 Crenated Cell Not Reportable 05/01/21 07:11 Elliptocytes Not Reportable 05/01/21 07:11 Acanthocytes (Spur) Not Reportable 05/01/21 07:11 Rouleaux Not Reportable 05/01/21 07:11 Hemoglobin C Crystals Not Reportable 05/01/21 07:11 Schistocytes Not Reportable 05/01/21 07:11 Malaria parasites Not Reportable 05/01/21 07:11 James Bodies Not Reportable 05/01/21 07:11 Hem Pathologist Commnt No 05/01/21 07:11 PT 12.2 Sec. (12.2-14.9) 04/15/21 17:20 INR 0.91 (0.87-1.13) 04/15/21 17:20 APTT 31.8 Sec. (24.2-36.6) 04/15/21 17:20 ABG pH 7.464 (7.320-7.450) H 05/06/21 04:00 POC ABG pCO2 33.2 mmHg (32.0-48.0) 05/06/21 04:00 POC ABG pO2 74.2 mmHg (83-108) L 05/06/21 04:00 POC ABG HCO3 23.3 05/06/21 04:00 ABG O2 Saturation 94.9 (0-100) 05/06/21 04:00 POC ABG Base Excess 0 05/06/21 04:00 ABG Hemoglobin 10.5 (12.0-17.5) L 05/06/21 04:00 ABG Oxyhemoglobin 94.2 (94-98) 05/06/21 04:00 ABG Methemoglobin 0.3 (0.0-1.5) 05/06/21 04:00 ABG Sodium 142.7 mmol/L (136.0-145.0) 05/06/21 04:00 ABG Potassium 4.3 mmol/L (3.40-4.50) 05/06/21 04:00 ABG Chloride 110.0 mmol/L (98-107) H 05/06/21 04:00 ABG Glucose 214 mg/dL (65-95) H 05/06/21 04:00 Carboxyhemoglobin 0.4 (0.5-1.5) L 05/06/21 04:00 FiO2 % 30.0 05/06/21 04:00 Sodium 146 mmol/L (137-145) H 05/06/21 07:12 Potassium 4.6 mmol/L (3.6-5.0) 05/06/21 07:12 Chloride 110.4 mmol/L (98-107) H 05/06/21 07:12 Carbon Dioxide 27 mmol/L (22-30) 05/06/21 07:12 Anion Gap 13 mmol/L 05/06/21 07:12 BUN 82 mg/dL (7-17) H 05/06/21 07:12 Creatinine 2.3 mg/dL (0.6-1.2) H 05/06/21 07:12 Estimated GFR 25 ml/min 05/06/21 07:12 BUN/Creatinine Ratio 36 % 05/06/21 07:12 Glucose 154 mg/dL (65-100) H 05/06/21 07:12 POC Glucose 95 mg/dL (70-105) 05/06/21 11:16 Lactic Acid 1.10 mmol/L (0.7-2.0) 04/26/21 09:30 Calcium 9.8 mg/dL (8.4-10.2) 05/06/21 07:12 Phosphorus 2.60 mg/dL (2.5-4.5) 04/22/21 08:00 Magnesium 2.10 mg/dL (1.7-2.3) 04/23/21 07:02 Total Bilirubin 0.30 mg/dL (0.1-1.2) 04/28/21 04:13 Direct Bilirubin < 0.2 mg/dL (0-0.2) 04/28/21 04:13 Indirect Bilirubin 0.1 mg/dL 04/28/21 04:13 AST 61 units/L (5-40) H 04/28/21 04:13 ALT 64 units/L (7-56) H 04/28/21 04:13 Alkaline Phosphatase 95 units/L (35-129) 04/28/21 04:13 Ammonia 46.0 umol/L (25-60) 04/15/21 17:20 Total Creatine Kinase 427 units/L (30-135) H 04/18/21 05:34 CK-MB (CK-2) 9.1 ng/mL (0.0-4.0) H 04/17/21 15:35 CK-MB (CK-2) Rel Index 1.4 (0-4) 04/17/21 15:35 Troponin T 0.065 ng/mL (0.00-0.029) H 04/20/21 03:32 NT-Pro-B Natriuret Pep 697.9 pg/mL (0-900) 04/15/21 17:20 Total Protein 6.2 g/dL (6.3-8.2) L 04/28/21 04:13 Albumin 2.6 g/dL (3.9-5) L 04/28/21 04:13 Albumin/Globulin Ratio 0.7 % 04/28/21 04:13 Triglycerides 103 mg/dL (2-149) 04/17/21 05:04 Cholesterol 122 mg/dL (50-199) 04/17/21 05:04 LDL Cholesterol Direct 55 mg/dL (50-130) 04/17/21 05:04 HDL Cholesterol 61 mg/dL (40-59) H 04/17/21 05:04 Cholesterol/HDL Ratio 2.00 % 04/17/21 05:04 Procalcitonin 0.20 ng/mL (<0.15) 04/16/21 19:01 TSH 14.190 mlU/mL (0.270-4.200) H 04/15/21 17:20 Thyroxine (T4) 4.1 ug/dL (4.0-12.0) 04/16/21 19:01 Free T3 Index 1.1 pg/mL (2.3-4.2) L 04/16/21 19:01 Arterial Blood Glucose 214 mg/dL (65-95) H 05/06/21 04:00 Arterial Blood Ionized Calcium 5.0 mg/dL (4.6-5.3) 05/06/21 04:00 Urine Color Yellow (Yellow) 04/30/21 17:45 Urine Turbidity Cloudy (Clear) 04/30/21 17:45 Urine pH 5.0 (5.0-7.0) 04/30/21 17:45 Ur Specific [place] 1.016 (1.003-1.030) 04/30/21 17:45 Urine Protein 100 mg/dl mg/dL (Negative) 04/30/21 17:45 Urine Glucose (UA) Neg mg/dL (Negative) 04/30/21 17:45 Urine Ketones Neg mg/dL (Negative) 04/30/21 17:45 Urine Blood Mod (Negative) 04/30/21 17:45 Urine Nitrite Neg (Negative) 04/30/21 17:45 Urine Bilirubin Neg (Negative) 04/30/21 17:45 Urine Urobilinogen < 2.0 mg/dL (<2.0) 04/30/21 17:45 Ur Leukocyte Esterase Mod (Negative) 04/30/21 17:45 Urine WBC (Auto) 48.0 /HPF (0.0-6.0) H 04/30/21 17:45 Urine RBC (Auto) 103.0 /HPF (0.0-6.0) 04/30/21 17:45 U Epithel Cells (Auto) < 1.0 /HPF (0-13.0) 04/16/21 00:09 Urine Bacteria (Auto) 1+ /HPF (Negative) 04/16/21 00:09 Urine Mucus Few /HPF 04/30/21 17:45 Urine Yeast (Budding) 3+ /HPF 04/30/21 17:45 Urine Creatinine 24.4 mg/dL (0.1-20.0) H 04/16/21 00:12 Urine Sodium 97 mmol/L 04/16/21 00:12 Random Vancomycin 15.5 ug/mL (0-40.0) 04/27/21 07:52 Salicylates 4.1 mg/dL (2.8-20.0) 04/15/21 17:20 Acetaminophen 5.0 ug/mL (10.0-30.0) L 04/15/21 17:20 Plasma/Serum Alcohol 0.02 % (0-0.07) 04/15/21 17:20 Coronavirus (PCR) Negative (Negative) 04/16/21 Unknown Microbiology: Microbiology 04/30/21 16:07 Peripheral/Venous Blood Culture - Final NO GROWTH AFTER 5 DAYS 04/30/21 16:07 Peripheral/Venous Blood Culture - Final NO GROWTH AFTER 5 DAYS Kerr/IV: Voiding Method External Female Catheter Active Medications - Current Medications Current Medications: Generic Name Dose Route Start Last Admin Trade Name Freq PRN Reason Stop Dose Admin Acetaminophen 650 mg 04/15/21 19:11 04/30/21 20:14 Acetaminophen 325 Mg Tab PO 650 mg Q6H PRN Administration Pain MILD(1-3)/Fever >100.5/SEXTON Albuterol/Ipratropium 1 ampul 04/24/21 14:00 05/06/21 07:32 Ipratropium/Albuterol Sulfate 3 Ml Ampul.Neb IH 1 ampul Q6HRT WOLFGANG Administration Amlodipine Besylate 10 mg 04/25/21 10:00 05/06/21 09:32 Amlodipine 10 Mg Tab PO 10 mg DAILY WOLFGANG Administration Lipase/Protease/Amylase 1 each 04/16/21 12:52 Lipase 10,500/Protease 25,000/Amylase 43,750 (Units) Dr Simpson FEEDTUBE PRN PRN For Clogged Feeding Tube Aspirin 81 mg 04/25/21 10:00 05/06/21 09:32 Aspirin 81 Mg Tab Chew PO 81 mg QDAY WOLFGANG Administration Bisacodyl 10 mg 04/17/21 11:01 05/03/21 09:50 Bisacodyl 10 Mg Rect Supp LA 10 mg QDAY PRN Administration Constipation Brimonidine Tartrate 1 drops 04/17/21 22:00 05/06/21 09:32 Brimonidine 0.15% Ophth Soln OU 1 drops BID WOLFGANG Administration Docusate Sodium 100 mg 04/29/21 15:00 05/06/21 09:33 Docusate Sodium 100 Mg/10 Ml Oral Liqd PO 100 mg BID WOLFGANG Administration Epinephrine 0.5 ml 04/21/21 12:56 Epinephrine Racemic 2.25% 0.5ml Nebu IH Q4HRT PRN Shortness Of Breath Famotidine 20 mg 04/17/21 10:00 05/06/21 09:33 Famotidine 20 Mg Tab PO 20 mg DAILY WOLFGANG Administration Fentanyl 50 mcg 04/24/21 13:03 Fentanyl 100 Mcg/2 Ml Inj IV Q10MIN PRN ANALGESIA Heparin Sodium (Porcine) 5,000 unit 04/15/21 22:00 05/06/21 09:33 Heparin 5,000 Unit/1 Ml Vial SUB-Q 5,000 unit Q12HR WOLFGANG Administration Hydralazine HCl 10 mg 04/16/21 18:00 04/24/21 05:25 Hydralazine 20 Mg/1 Ml Inj IV 10 mg Q4HR PRN Administration Hypertension Hydralazine HCl 50 mg 05/03/21 14:00 05/06/21 06:44 Hydralazine 25 Mg Tab PO 50 mg Q8HR WOLFGANG Administration Hydrophilic Ointment 1 applic 04/15/21 17:24 Lip Therapy Vaseline TP Q2HR PRN Dry Lips Fentanyl Citrate 2,000 mcg in 100 mls @ 4.765 mls/hr 04/24/21 14:00 04/25/21 09:15 Fentanyl Drip Premix IV 0 mcg/kg/hr TITR WOLFGANG 0 mls/hr Titration Protocol 1 MCG/KG/HR Propofol 1,000 mg in 100 mls @ 2.859 mls/hr 04/24/21 14:00 04/25/21 09:10 Diprivan 10 Mg/Ml IV 0 mcg/kg/min TITR WOLFGANG 0 mls/hr Titration Protocol 5 MCG/KG/MIN Insulin Human Isoph/Insulin Regular 25 unit 05/05/21 17:00 05/06/21 09:32 Insulin Nph/Regular 70/30 Inj SUB-Q 25 unit BIDDIAB WOLFGANG Administration Insulin Human Lispro 0 unit 04/16/21 15:00 05/06/21 11:17 Insulin Lispro 100 Unit/Ml SUB-Q Not Given Q6HR [facility] Protocol Latanoprost 1 drops 04/17/21 18:00 05/05/21 17:59 Latanoprost 0.005% Ophth Soln 2.5 Ml OU 1 drops QPM WOLFGANG Administration Levothyroxine Sodium 25 mcg 04/19/21 06:00 05/06/21 06:50 Levothyroxine 25 Mcg Tab PO 25 mcg DAILY@0600 WOLFGANG Administration Metoprolol Tartrate 25 mg 04/19/21 10:00 05/06/21 09:33 Metoprolol Tartrate 25 Mg Tab PO 25 mg BID WOLFGANG Administration Multi-Ingred Cream/Lotion/Oil/Oint 1 applic 04/15/21 17:24 05/04/21 09:25 Mineral Oil/Petrolatum, White Ophth Oint 3.5 Gm OU 1 applic Q4HR PRN Administration Dry Eye(s) Pravastatin Sodium 20 mg 04/19/21 22:00 05/05/21 21:43 Pravastatin 20 Mg Tab PO 20 mg QHS WOLFGANG Administration Scopolamine 1 each 04/20/21 18:00 05/05/21 09:59 Scopolamine Transdermal Patch 72 Hr TD 1 each Q3D WOLFGANG Administration Simple Syrup 15 ml 04/16/21 12:52 Simple Syrup 15 Ml FEEDTUBE PRN PRN Hypoglycemia Simple Syrup 30 ml 04/16/21 12:52 Simple Syrup 15 Ml FEEDTUBE PRN PRN Hypoglycemia Sodium Bicarbonate 325 mg 04/16/21 12:52 Sodium Bicarbonate 325 Mg Tab FEEDTUBE PRN PRN For Clogged Feeding Tube Sodium Chloride 10 ml 04/15/21 22:00 05/06/21 09:34 Sodium Chloride 0.9% 10 Ml Flush Syringe IV 10 ml BID WOLFGANG Administration Sodium Chloride 10 ml 04/15/21 19:11 04/24/21 05:27 Sodium Chloride 0.9% 10 Ml Flush Syringe IV 10 ml PRN PRN Administration LINE FLUSH Tamsulosin HCl 0.4 mg 04/25/21 14:00 05/06/21 09:33 Tamsulosin 0.4 Mg Cap PO 0.4 mg QDAY WOLFGANG Administration Timolol Maleate 1 drops 04/19/21 10:00 05/06/21 09:34 Timolol 0.5% Ophth Soln 5 Ml OU 1 drops QDAY WOLFGANG Administration Nutrition/Malnutrition Assess - Dietary Evaluation Nutrition/Malnutrition Findings: Nutrition Notes Start: 04/16/21 12:31 Freq: Status: Active Protocol: Document 04/30/21 09:36 LP (Rec: 04/30/21 09:39 LP [id number]) Nutrition Notes Initial or Follow up Reassessment Current Diagnosis Acute Kidney Injury,Coronary Artery Disease,Diabetes, Hypertension Other Pertinent Diagnosis UTI, acute metabolic encephalopathy Current Diet Glucerna 1.2 at 50ml/hr Labs/Tests BUN 118 Cr 3.3 BG 263 Pertinent Medications Reviewed Height 5 ft 6 in Weight 93 kg [place] Body Weight (kg) 59.09 BMI 33.0 Weight Status Obese Subjective/Other Information Pt tolerating TF at goal rate. Pt on vent. Percent of energy/protein needs met: 100% energy 61% pro Burn Absent Trauma Absent Difficulty In Swallowing Current % PO Negligible Minimum of two criteria No physical signs of malnutrition #1 Nutrition Diagnosis Inadequate oral intake Diagnosis Progress(for reassessment Continues documentation) Is patient on ventilator? Yes Is Patient Ambulatory and/or Out of Bed No REE-([facility]-confined to bed) 1700.760 Kcal/Kg value to use for calculation 15 Approximate Energy Requirements Using 1395 kcal/Kg Calculation Used for Recommendations Kcal/kg Additional Notes Pro needs >2g/kg IBW: >118g/ day Fluid needs 1ml/kcal Nutrition Intervention Change Diet Order: TF Nutrition Support: Continue Glucerna 1.2 at 50ml/ hr with 50ml water flush q4h. Kcal 1,440 Protein (gm) 72 Fluid (mL) 966 Goal #1 TF tolerance Goal #2 TF to meet energy and pro needs as best possible Anticipated Discharge Needs: unable to determine at this time Follow-Up By: 05/07/21 Additional Comments Follow for stable TF <SONI DUTTA - Last Filed: 05/06/21 14:57> Assessment and Plan Assessment and plan: This is a 80-year-old female with HTN, DM, HI, breast CA s/p double mastectomy, TIA who presented with hypoglycemia, AMS who was admitted with SIRS, symptomatic bradycardia, acute metabolic encephalopathy, acute hypoxic respiratory failure, elevated TSH, hyperglycemia, hyponatremia, hypokalemia, ROJELIO and rhabdomyolysis. Acute hypoxic respiratory failure (extubated 04/20)- Re-intubated secondary to Stridor and paradoxical breathing. I saw and evaluated the patient and discussed with Nurse Practitioner. I agree with the findings and the plan of care as documented in the Nurse Practitioner's note. I also discussed with Surgeon, Dr. Mohan. Patient is for tracheostomy and PEG tube placement on Monday 05/07 Hospitalist Physical - Constitutional Vitals: Temp Pulse Resp BP Pulse Ox 98.5 F 74 22 121/89 100 05/06/21 08:00 05/06/21 14:00 05/06/21 14:00 05/06/21 14:00 05/06/21 14:00 HEART Score - HEART Score Troponin: Troponin T 0.065 ng/mL (0.00-0.029) H 04/20/21 03:32 Results - Labs CBC & Chem 7: 05/04/21 04:57 05/06/21 07:12 Labs: Laboratory Last Values WBC 10.2 K/mm3 (4.5-11.0) 05/04/21 04:57 RBC 2.61 M/mm3 (3.65-5.03) L 05/04/21 04:57 Hgb 8.2 gm/dl (10.1-14.3) L 05/04/21 04:57 Hct 25.4 % (30.3-42.9) L 05/04/21 04:57 MCV 98 fl (79-97) H 05/04/21 04:57 MCH 31 pg (28-32) 05/04/21 04:57 MCHC 32 % (30-34) 05/04/21 04:57 RDW 15.3 % (13.2-15.2) H 05/04/21 04:57 Plt Count 321 K/mm3 (140-440) 05/04/21 04:57 Lymph % (Auto) 12.8 % (13.4-35.0) L 04/15/21 17:20 [place] % (Auto) 4.1 % (0.0-7.3) 04/15/21 17:20 Eos % (Auto) 0.3 % (0.0-4.3) 04/15/21 17:20 Baso % (Auto) 0.4 % (0.0-1.8) 04/15/21 17:20 Lymph # (Auto) 1.4 K/mm3 (1.2-5.4) 04/15/21 17:20 [place] # (Auto) 0.5 K/mm3 (0.0-0.8) 04/15/21 17:20 Eos # (Auto) 0.0 K/mm3 (0.0-0.4) 04/15/21 17:20 Baso # (Auto) 0.0 K/mm3 (0.0-0.1) 04/15/21 17:20 Add Manual Diff Complete 05/01/21 07:11 Total Counted 100 05/01/21 07:11 Seg Neutrophils % 82.4 % (40.0-70.0) H 04/15/21 17:20 Seg Neuts % (Manual) 80.0 % (40.0-70.0) H 05/01/21 07:11 Band Neutrophils % 7.0 % 05/01/21 07:11 Lymphocytes % (Manual) 5.0 % (13.4-35.0) L 05/01/21 07:11 Monocytes % (Manual) 6.0 % (0.0-7.3) 05/01/21 07:11 Eosinophils % (Manual) 1.0 % (0.0-4.3) 05/01/21 07:11 Metamyelocytes % 1.0 % 05/01/21 07:11 Nucleated RBC % Not Reportable 05/01/21 07:11 Seg Neutrophils # 9.3 K/mm3 (1.8-7.7) H 04/15/21 17:20 Seg Neutrophils # Man 9.8 K/mm3 (1.8-7.7) H 05/01/21 07:11 Band Neutrophils # 0.9 K/mm3 05/01/21 07:11 Lymphocytes # (Manual) 0.6 K/mm3 (1.2-5.4) L 05/01/21 07:11 Abs React Lymphs (Man) 0.0 K/mm3 05/01/21 07:11 Monocytes # (Manual) 0.7 K/mm3 (0.0-0.8) 05/01/21 07:11 Eosinophils # (Manual) 0.1 K/mm3 (0.0-0.4) 05/01/21 07:11 Basophils # (Manual) 0.0 K/mm3 (0.0-0.1) 05/01/21 07:11 Metamyelocytes # 0.1 K/mm3 05/01/21 07:11 Myelocytes # 0.0 K/mm3 05/01/21 07:11 Promyelocytes # 0.0 K/mm3 05/01/21 07:11 Blast Cells # 0.0 K/mm3 05/01/21 07:11 WBC Morphology Not Reportable 05/01/21 07:11 Hypersegmented Neuts Not Reportable 05/01/21 07:11 Hyposegmented Neuts Not Reportable 05/01/21 07:11 Hypogranular Neuts Not Reportable 05/01/21 07:11 Smudge Cells Not Reportable 05/01/21 07:11 Toxic Granulation Not Reportable 05/01/21 07:11 Toxic Vacuolation Not Reportable 05/01/21 07:11 Dohle Bodies Not Reportable 05/01/21 07:11 Pelger-Huet Anomaly Not Reportable 05/01/21 07:11 Peterson Rods Not Reportable 05/01/21 07:11 Platelet Estimate Consistent w auto 05/01/21 07:11 Clumped Platelets Not Reportable 05/01/21 07:11 Plt Clumps, EDTA Not Reportable 05/01/21 07:11 Large Platelets Not Reportable 05/01/21 07:11 Giant Platelets Not Reportable 05/01/21 07:11 Platelet Satelliting Not Reportable 05/01/21 07:11 Plt Morphology Comment Not Reportable 05/01/21 07:11 RBC Morphology Normal 05/01/21 07:11 Dimorphic RBCs Not Reportable 05/01/21 07:11 Polychromasia Not Reportable 05/01/21 07:11 Hypochromasia Not Reportable 05/01/21 07:11 Poikilocytosis Not Reportable 05/01/21 07:11 Anisocytosis Not Reportable 05/01/21 07:11 Microcytosis Not Reportable 05/01/21 07:11 Macrocytosis Not Reportable 05/01/21 07:11 Spherocytes Not Reportable 05/01/21 07:11 Pappenheimer Bodies Not Reportable 05/01/21 07:11 Sickle Cells Not Reportable 05/01/21 07:11 Target Cells Not Reportable 05/01/21 07:11 Tear Drop Cells Not Reportable 05/01/21 07:11 Ovalocytes Not Reportable 05/01/21 07:11 Helmet Cells Not Reportable 05/01/21 07:11 [place] Bodies Not Reportable 05/01/21 07:11 [place] Rings Not Reportable 05/01/21 07:11 [place] Cells Not Reportable 05/01/21 07:11 Bite Cells Not Reportable 05/01/21 07:11 Crenated Cell Not Reportable 05/01/21 07:11 Elliptocytes Not Reportable 05/01/21 07:11 Acanthocytes (Spur) Not Reportable 05/01/21 07:11 Rouleaux Not Reportable 05/01/21 07:11 Hemoglobin C Crystals Not Reportable 05/01/21 07:11 Schistocytes Not Reportable 05/01/21 07:11 Malaria parasites Not Reportable 05/01/21 07:11 James Bodies Not Reportable 05/01/21 07:11 Hem Pathologist Commnt No 05/01/21 07:11 PT 12.2 Sec. (12.2-14.9) 04/15/21 17:20 INR 0.91 (0.87-1.13) 04/15/21 17:20 APTT 31.8 Sec. (24.2-36.6) 04/15/21 17:20 ABG pH 7.464 (7.320-7.450) H 05/06/21 04:00 POC ABG pCO2 33.2 mmHg (32.0-48.0) 05/06/21 04:00 POC ABG pO2 74.2 mmHg (83-108) L 05/06/21 04:00 POC ABG HCO3 23.3 05/06/21 04:00 ABG O2 Saturation 94.9 (0-100) 05/06/21 04:00 POC ABG Base Excess 0 05/06/21 04:00 ABG Hemoglobin 10.5 (12.0-17.5) L 05/06/21 04:00 ABG Oxyhemoglobin 94.2 (94-98) 05/06/21 04:00 ABG Methemoglobin 0.3 (0.0-1.5) 05/06/21 04:00 ABG Sodium 142.7 mmol/L (136.0-145.0) 05/06/21 04:00 ABG Potassium 4.3 mmol/L (3.40-4.50) 05/06/21 04:00 ABG Chloride 110.0 mmol/L (98-107) H 05/06/21 04:00 ABG Glucose 214 mg/dL (65-95) H 05/06/21 04:00 Carboxyhemoglobin 0.4 (0.5-1.5) L 05/06/21 04:00 FiO2 % 30.0 05/06/21 04:00 Sodium 146 mmol/L (137-145) H 05/06/21 07:12 Potassium 4.6 mmol/L (3.6-5.0) 05/06/21 07:12 Chloride 110.4 mmol/L (98-107) H 05/06/21 07:12 Carbon Dioxide 27 mmol/L (22-30) 05/06/21 07:12 Anion Gap 13 mmol/L 05/06/21 07:12 BUN 82 mg/dL (7-17) H 05/06/21 07:12 Creatinine 2.3 mg/dL (0.6-1.2) H 05/06/21 07:12 Estimated GFR 25 ml/min 05/06/21 07:12 BUN/Creatinine Ratio 36 % 05/06/21 07:12 Glucose 154 mg/dL (65-100) H 05/06/21 07:12 POC Glucose 95 mg/dL (70-105) 05/06/21 11:16 Lactic Acid 1.10 mmol/L (0.7-2.0) 04/26/21 09:30 Calcium 9.8 mg/dL (8.4-10.2) 05/06/21 07:12 Phosphorus 2.60 mg/dL (2.5-4.5) 04/22/21 08:00 Magnesium 2.10 mg/dL (1.7-2.3) 04/23/21 07:02 Total Bilirubin 0.30 mg/dL (0.1-1.2) 04/28/21 04:13 Direct Bilirubin < 0.2 mg/dL (0-0.2) 04/28/21 04:13 Indirect Bilirubin 0.1 mg/dL 04/28/21 04:13 AST 61 units/L (5-40) H 04/28/21 04:13 ALT 64 units/L (7-56) H 04/28/21 04:13 Alkaline Phosphatase 95 units/L (35-129) 04/28/21 04:13 Ammonia 46.0 umol/L (25-60) 04/15/21 17:20 Total Creatine Kinase 427 units/L (30-135) H 04/18/21 05:34 CK-MB (CK-2) 9.1 ng/mL (0.0-4.0) H 04/17/21 15:35 CK-MB (CK-2) Rel Index 1.4 (0-4) 04/17/21 15:35 Troponin T 0.065 ng/mL (0.00-0.029) H 04/20/21 03:32 NT-Pro-B Natriuret Pep 697.9 pg/mL (0-900) 04/15/21 17:20 Total Protein 6.2 g/dL (6.3-8.2) L 04/28/21 04:13 Albumin 2.6 g/dL (3.9-5) L 04/28/21 04:13 Albumin/Globulin Ratio 0.7 % 04/28/21 04:13 Triglycerides 103 mg/dL (2-149) 04/17/21 05:04 Cholesterol 122 mg/dL (50-199) 04/17/21 05:04 LDL Cholesterol Direct 55 mg/dL (50-130) 04/17/21 05:04 HDL Cholesterol 61 mg/dL (40-59) H 04/17/21 05:04 Cholesterol/HDL Ratio 2.00 % 04/17/21 05:04 Procalcitonin 0.20 ng/mL (<0.15) 04/16/21 19:01 TSH 14.190 mlU/mL (0.270-4.200) H 04/15/21 17:20 Thyroxine (T4) 4.1 ug/dL (4.0-12.0) 04/16/21 19:01 Free T3 Index 1.1 pg/mL (2.3-4.2) L 04/16/21 19:01 Arterial Blood Glucose 214 mg/dL (65-95) H 05/06/21 04:00 Arterial Blood Ionized Calcium 5.0 mg/dL (4.6-5.3) 05/06/21 04:00 Urine Color Yellow (Yellow) 04/30/21 17:45 Urine Turbidity Cloudy (Clear) 04/30/21 17:45 Urine pH 5.0 (5.0-7.0) 04/30/21 17:45 Ur Specific [place] 1.016 (1.003-1.030) 04/30/21 17:45 Urine Protein 100 mg/dl mg/dL (Negative) 04/30/21 17:45 Urine Glucose (UA) Neg mg/dL (Negative) 04/30/21 17:45 Urine Ketones Neg mg/dL (Negative) 04/30/21 17:45 Urine Blood Mod (Negative) 04/30/21 17:45 Urine Nitrite Neg (Negative) 04/30/21 17:45 Urine Bilirubin Neg (Negative) 04/30/21 17:45 Urine Urobilinogen < 2.0 mg/dL (<2.0) 04/30/21 17:45 Ur Leukocyte Esterase Mod (Negative) 04/30/21 17:45 Urine WBC (Auto) 48.0 /HPF (0.0-6.0) H 04/30/21 17:45 Urine RBC (Auto) 103.0 /HPF (0.0-6.0) 04/30/21 17:45 U Epithel Cells (Auto) < 1.0 /HPF (0-13.0) 04/16/21 00:09 Urine Bacteria (Auto) 1+ /HPF (Negative) 04/16/21 00:09 Urine Mucus Few /HPF 04/30/21 17:45 Urine Yeast (Budding) 3+ /HPF 04/30/21 17:45 Urine Creatinine 24.4 mg/dL (0.1-20.0) H 04/16/21 00:12 Urine Sodium 97 mmol/L 04/16/21 00:12 Random Vancomycin 15.5 ug/mL (0-40.0) 04/27/21 07:52 Salicylates 4.1 mg/dL (2.8-20.0) 04/15/21 17:20 Acetaminophen 5.0 ug/mL (10.0-30.0) L 04/15/21 17:20 Plasma/Serum Alcohol 0.02 % (0-0.07) 04/15/21 17:20 Coronavirus (PCR) Negative (Negative) 04/16/21 Unknown Microbiology: Microbiology 04/30/21 16:07 Peripheral/Venous Blood Culture - Final NO GROWTH AFTER 5 DAYS 04/30/21 16:07 Peripheral/Venous Blood Culture - Final NO GROWTH AFTER 5 DAYS Kerr/IV: Voiding Method External Female Catheter Active Medications - Current Medications Current Medications: Generic Name Dose Route Start Last Admin Trade Name Freq PRN Reason Stop Dose Admin Acetaminophen 650 mg 04/15/21 19:11 04/30/21 20:14 Acetaminophen 325 Mg Tab PO 650 mg Q6H PRN Administration Pain MILD(1-3)/Fever >100.5/SEXTON Albuterol/Ipratropium 1 ampul 04/24/21 14:00 05/06/21 13:10 Ipratropium/Albuterol Sulfate 3 Ml Ampul.Neb IH 1 ampul Q6HRT WOLFGANG Administration Amlodipine Besylate 10 mg 04/25/21 10:00 05/06/21 09:32 Amlodipine 10 Mg Tab PO 10 mg DAILY WOLFGANG Administration Lipase/Protease/Amylase 1 each 04/16/21 12:52 Lipase 10,500/Protease 25,000/Amylase 43,750 (Units) Dr Simpson FEEDTUBE PRN PRN For Clogged Feeding Tube Aspirin 81 mg 04/25/21 10:00 05/06/21 09:32 Aspirin 81 Mg Tab Chew PO 81 mg QDAY WOLFGANG Administration Bisacodyl 10 mg 04/17/21 11:01 05/03/21 09:50 Bisacodyl 10 Mg Rect Supp LA 10 mg QDAY PRN Administration Constipation Brimonidine Tartrate 1 drops 04/17/21 22:00 05/06/21 09:32 Brimonidine 0.15% Ophth Soln OU 1 drops BID WOLFAGNG Administration Docusate Sodium 100 mg 04/29/21 15:00 05/06/21 09:33 Docusate Sodium 100 Mg/10 Ml Oral Liqd PO 100 mg BID WOLFGANG Administration Epinephrine 0.5 ml 04/21/21 12:56 Epinephrine Racemic 2.25% 0.5ml Nebu IH Q4HRT PRN Shortness Of Breath Famotidine 20 mg 04/17/21 10:00 05/06/21 09:33 Famotidine 20 Mg Tab PO 20 mg DAILY WOLFGANG Administration Fentanyl 50 mcg 04/24/21 13:03 Fentanyl 100 Mcg/2 Ml Inj IV Q10MIN PRN ANALGESIA Heparin Sodium (Porcine) 5,000 unit 04/15/21 22:00 05/06/21 09:33 Heparin 5,000 Unit/1 Ml Vial SUB-Q 5,000 unit Q12HR WOLFGANG Administration Hydralazine HCl 10 mg 04/16/21 18:00 04/24/21 05:25 Hydralazine 20 Mg/1 Ml Inj IV 10 mg Q4HR PRN Administration Hypertension Hydralazine HCl 50 mg 05/03/21 14:00 05/06/21 13:15 Hydralazine 25 Mg Tab PO 50 mg Q8HR WOLFGANG Administration Hydrophilic Ointment 1 applic 04/15/21 17:24 Lip Therapy Vaseline TP Q2HR PRN Dry Lips Fentanyl Citrate 2,000 mcg in 100 mls @ 4.765 mls/hr 04/24/21 14:00 04/25/21 09:15 Fentanyl Drip Premix IV 0 mcg/kg/hr TITR WOLFGANG 0 mls/hr Titration Protocol 1 MCG/KG/HR Propofol 1,000 mg in 100 mls @ 2.859 mls/hr 04/24/21 14:00 04/25/21 09:10 Diprivan 10 Mg/Ml IV 0 mcg/kg/min TITR WOLFGANG 0 mls/hr Titration Protocol 5 MCG/KG/MIN Insulin Human Isoph/Insulin Regular 25 unit 05/05/21 17:00 05/06/21 09:32 Insulin Nph/Regular 70/30 Inj SUB-Q 25 unit BIDDIAB WOLFGANG Administration Insulin Human Lispro 0 unit 04/16/21 15:00 05/06/21 11:17 Insulin Lispro 100 Unit/Ml SUB-Q Not Given Q6HR [facility] Protocol Latanoprost 1 drops 04/17/21 18:00 05/05/21 17:59 Latanoprost 0.005% Ophth Soln 2.5 Ml OU 1 drops QPM WOLFGANG Administration Levothyroxine Sodium 25 mcg 04/19/21 06:00 05/06/21 06:50 Levothyroxine 25 Mcg Tab PO 25 mcg DAILY@0600 WOLFGANG Administration Metoprolol Tartrate 25 mg 04/19/21 10:00 05/06/21 09:33 Metoprolol Tartrate 25 Mg Tab PO 25 mg BID WOLFGANG Administration Multi-Ingred Cream/Lotion/Oil/Oint 1 applic 04/15/21 17:24 05/04/21 09:25 Mineral Oil/Petrolatum, White Ophth Oint 3.5 Gm OU 1 applic Q4HR PRN Administration Dry Eye(s) Pravastatin Sodium 20 mg 04/19/21 22:00 05/05/21 21:43 Pravastatin 20 Mg Tab PO 20 mg QHS WOLFGANG Administration Scopolamine 1 each 04/20/21 18:00 05/05/21 09:59 Scopolamine Transdermal Patch 72 Hr TD 1 each Q3D WOLFGANG Administration Simple Syrup 15 ml 04/16/21 12:52 Simple Syrup 15 Ml FEEDTUBE PRN PRN Hypoglycemia Simple Syrup 30 ml 04/16/21 12:52 Simple Syrup 15 Ml FEEDTUBE PRN PRN Hypoglycemia Sodium Bicarbonate 325 mg 04/16/21 12:52 Sodium Bicarbonate 325 Mg Tab FEEDTUBE PRN PRN For Clogged Feeding Tube Sodium Chloride 10 ml 04/15/21 22:00 05/06/21 09:34 Sodium Chloride 0.9% 10 Ml Flush Syringe IV 10 ml BID WOLFGANG Administration Sodium Chloride 10 ml 04/15/21 19:11 04/24/21 05:27 Sodium Chloride 0.9% 10 Ml Flush Syringe IV 10 ml PRN PRN Administration LINE FLUSH Tamsulosin HCl 0.4 mg 04/25/21 14:00 05/06/21 09:33 Tamsulosin 0.4 Mg Cap PO 0.4 mg QDAY WOLFGANG Administration Timolol Maleate 1 drops 04/19/21 10:00 05/06/21 09:34 Timolol 0.5% Ophth Soln 5 Ml OU 1 drops QDAY WOLFGANG Administration Nutrition/Malnutrition Assess - Dietary Evaluation Nutrition/Malnutrition Findings: Nutrition Notes Start: 04/16/21 12:31 Freq: Status: Active Protocol: Document 04/30/21 09:36 LP (Rec: 04/30/21 09:39 LP [id number]) Nutrition Notes Initial or Follow up Reassessment Current Diagnosis Acute Kidney Injury,Coronary Artery Disease,Diabetes, Hypertension Other Pertinent Diagnosis UTI, acute metabolic encephalopathy Current Diet Glucerna 1.2 at 50ml/hr Labs/Tests BUN 118 Cr 3.3 BG 263 Pertinent Medications Reviewed Height 5 ft 6 in Weight 93 kg [place] Body Weight (kg) 59.09 BMI 33.0 Weight Status Obese Subjective/Other Information Pt tolerating TF at goal rate. Pt on vent. Percent of energy/protein needs met: 100% energy 61% pro Burn Absent Trauma Absent Difficulty In Swallowing Current % PO Negligible Minimum of two criteria No physical signs of malnutrition #1 Nutrition Diagnosis Inadequate oral intake Diagnosis Progress(for reassessment Continues documentation) Is patient on ventilator? Yes Is Patient Ambulatory and/or Out of Bed No REE-([facility]confined to bed) 1700.760 Kcal/Kg value to use for calculation 15 Approximate Energy Requirements Using 1395 kcal/Kg Calculation Used for Recommendations Kcal/kg Additional Notes Pro needs >2g/kg IBW: >118g/ day Fluid needs 1ml/kcal Nutrition Intervention Change Diet Order: TF Nutrition Support: Continue Glucerna 1.2 at 50ml/ hr with 50ml water flush q4h. Kcal 1,440 Protein (gm) 72 Fluid (mL) 966 Goal #1 TF tolerance Goal #2 TF to meet energy and pro needs as best possible Anticipated Discharge Needs: unable to determine at this time Follow-Up By: 05/07/21 Additional Comments Follow for stable TF
--- NOTE | 2021-05-06 12:48 | Event Note ---
I updated the patient's nephew Carlos Romero at [phone] updatedhim of his aunts status and awaiting for the trach. He stated that he will just wait for 1:30 p.m. tomorrow for an update after the tracheostomy was placed.
--- NOTE | 2021-05-06 15:25 | Progress Note ---
Assessment and Plan Acute respiratory failure, on mechanical ventilatory support. Acute toxic metabolic encephalopathy Hypoglycemia ROJELIO Hyperkalemia Rhabdomyolysis Possible seizure activity DM II HTN CAD Obesity H/O breast cancer H/O TIA Leukocytosis Elevated serum TSH, possible hypothyroidism - tolerating tube feeds - tracheostomy tomorrow tentatively - ICU TECH spoke with next-of-kin and updated him - continue care as below otherwise; - continue to wean supplemental oxygen for target O2 sat's > 90% acutely - VAP bundle addressed - continue lung protective strategies - continue bronchodilators with pulmonary hygiene per RT - continue Daily SAT and SBT assessment as tolerated - wean per pulmonary driven protocols otherwise - continue accuchecks with glycemic control per SSI (While critically ill target blood glucose of 140-180 mg/dL; avoid hypoglycemia) - sedation prn for target RASS 0 to -1 - avoid nephrotoxins, renally dose all medications - continue to avoid benzodiazepine's, reduce the possibility of delirium - complete AB's per ID rec's re: Cefepime and Flagyl - follow clinically trend fevers / WBC - prn analgesia per CPOT score - Maintenance of sleep-wake cycle, avoid delirium - continue enteral nutritional support at goal rate as tolerated - G.I. & VTE prophylaxis - PT/OT/ROM exercises - continue Flomax re: retention - continue mobility protocols for pressure ulcer prophylaxis - Monitor hemodynamics closely - continue other care per attending / other consultants - discharge planning ongoing concurrently .... Re-evaluate in am & prn CONDITION: CRITICAL PROGNOSIS: GUARDED CODE STATUS: FULL CODE The high probability of a clinically significant, sudden or life-threatening deterioration of the [respiratory, cardiovascular, GI & neurologic] system(s) required my full and direct attention, intervention and personal management. The aggregate critical care time was [34] minutes without overlap. Time includes spent on; [x] Data Review and interpretation [x] Patient assessment and monitoring of vital signs [x] Documentation [x] Medication orders and management Subjective Date of service: 05/06/21 Principal diagnosis: Ac. resp failure; AMS; Hypoglycemia; ROJELIO; Hyperkalemia; DM II Interval history: Patient is seen today for: Acute respiratory failure; AMS; Hypoglycemia; ROJELIO; Hyperkalemia; DM II; H/O breast cancer; Elevated serum TSH, possible hypothyroidism Seen and examined at bedside; 24hour events reviewed; nursing and respiratory care staff consulted; no adverse overnight events reported to me; resting peacefully in bed; remains on MVS; tolerated a few hours on PSV; no emesis or overt aspiration; trach tentatively tomorrow Objective Vital Signs - 12hr 05/06/21 05/06/21 05/06/21 03:33 04:00 04:40 Temperature 98.7 F Pulse Rate 80 76 Pulse Rate [ 88 Bilateral] Pulse Rate [ 80 From Monitor] Respiratory 18 Rate Respiratory 22 Rate [Bilateral ] Blood Pressure 144/63 148/71 O2 Sat by Pulse 99 100 Oximetry 05/06/21 05/06/21 05/06/21 05:00 06:00 06:44 Temperature Pulse Rate 72 69 Pulse Rate [ Bilateral] Pulse Rate [ From Monitor] Respiratory 17 17 Rate Respiratory Rate [Bilateral ] Blood Pressure 148/71 148/71 140/103 O2 Sat by Pulse 98 Oximetry 05/06/21 05/06/21 05/06/21 07:00 07:32 08:00 Temperature 98.5 F Pulse Rate 70 68 73 Pulse Rate [ 69 Bilateral] Pulse Rate [ 73 From Monitor] Respiratory 18 18 Rate Respiratory 20 Rate [Bilateral ] Blood Pressure 140/103 137/51 137/51 O2 Sat by Pulse 98 100 100 Oximetry 05/06/21 05/06/21 05/06/21 09:00 09:32 09:33 Temperature Pulse Rate 71 76 74 Pulse Rate [ Bilateral] Pulse Rate [ From Monitor] Respiratory 24 Rate Respiratory Rate [Bilateral ] Blood Pressure 143/81 154/78 154/78 O2 Sat by Pulse 98 Oximetry 05/06/21 05/06/21 05/06/21 10:00 11:00 11:45 Temperature Pulse Rate 73 74 66 Pulse Rate [ Bilateral] Pulse Rate [ From Monitor] Respiratory 13 20 18 Rate Respiratory Rate [Bilateral ] Blood Pressure 154/98 148/104 111/59 O2 Sat by Pulse 99 99 100 Oximetry 05/06/21 05/06/21 05/06/21 12:00 13:00 13:10 Temperature Pulse Rate 67 67 Pulse Rate [ 76 Bilateral] Pulse Rate [ 66 From Monitor] Respiratory 20 20 Rate Respiratory 24 Rate [Bilateral ] Blood Pressure 164/86 111/59 O2 Sat by Pulse 100 99 Oximetry 05/06/21 05/06/21 13:15 14:00 Temperature Pulse Rate 71 74 Pulse Rate [ Bilateral] Pulse Rate [ From Monitor] Respiratory 22 Rate Respiratory Rate [Bilateral ] Blood Pressure 121/89 121/89 O2 Sat by Pulse 100 Oximetry Constitutional: no acute distress, other (elderly obese female with mildly increased respiratory effort at rest on MVS) Eyes: non-icteric ENT: oropharynx moist, other (ETT 24 cm RICARDO) Neck: supple, no lymphadenopathy, no JVD, other (large circumference) Effort: mildly labored Ascultation: Bilateral: diminished breath sounds, rhonchi Percussion: Bilateral: not dull Cardiovascular: regular rate and rhythm, other (S1,S2) Gastrointestinal: normoactive bowel sounds, hypoactive bowel sounds, non-tender, other (distended but soft) Integumentary: normal Extremities: no cyanosis, no edema, pulses normal, no ischemia or petechiae Neurologic: non-focal exam (tracks voice), pupils equal and round, CN II-XII normal, motor strength normal and Psychiatric: other (falt affect) CBC and BMP: 05/04/21 04:57 05/06/21 07:12 ABG, PT/INR, D-dimer: ABG ABG pH 7.464 (7.320-7.450) H 05/06/21 04:00 POC ABG pCO2 33.2 mmHg (32.0-48.0) 05/06/21 04:00 POC ABG pO2 74.2 mmHg (83-108) L 05/06/21 04:00 POC ABG HCO3 23.3 05/06/21 04:00 ABG O2 Saturation 94.9 (0-100) 05/06/21 04:00 PT/INR, D-dimer PT 12.2 Sec. (12.2-14.9) 04/15/21 17:20 INR 0.91 (0.87-1.13) 04/15/21 17:20 Abnormal lab findings: Abnormal Labs 04/15/21 04/15/21 04/15/21 17:00 17:20 17:20 WBC 11.2 H RBC Hgb Hct 43.0 H MCV RDW 15.3 H Plt Count Lymph % (Auto) 12.8 L Seg Neutrophils % 82.4 H Seg Neuts % (Manual) Lymphocytes % (Manual) Monocytes % (Manual) Seg Neutrophils # 9.3 H Seg Neutrophils # Man Lymphocytes # (Manual) Monocytes # (Manual) ABG pH POC ABG pCO2 POC ABG pO2 ABG Hemoglobin ABG Oxyhemoglobin ABG Sodium ABG Potassium ABG Chloride ABG Glucose Carboxyhemoglobin Sodium 129 L Potassium 7.1 H* Chloride 91.9 L BUN 35 H Creatinine 2.8 H Glucose POC Glucose 191 H Calcium Phosphorus Magnesium AST 69 H ALT Total Creatine Kinase CK-MB (CK-2) Troponin T Total Protein Albumin HDL Cholesterol TSH Free T3 Index Arterial Blood Glucose Arterial Blood Ionized Calcium Urine pH Urine WBC (Auto) Urine Creatinine Acetaminophen 04/15/21 04/15/21 04/15/21 17:20 17:20 17:20 WBC RBC Hgb Hct MCV RDW Plt Count Lymph % (Auto) Seg Neutrophils % Seg Neuts % (Manual) Lymphocytes % (Manual) Monocytes % (Manual) Seg Neutrophils # Seg Neutrophils # Man Lymphocytes # (Manual) Monocytes # (Manual) ABG pH POC ABG pCO2 POC ABG pO2 ABG Hemoglobin ABG Oxyhemoglobin ABG Sodium ABG Potassium ABG Chloride ABG Glucose Carboxyhemoglobin Sodium Potassium Chloride BUN Creatinine Glucose POC Glucose Calcium Phosphorus Magnesium AST ALT Total Creatine Kinase 1000 H CK-MB (CK-2) Troponin T Total Protein Albumin HDL Cholesterol TSH 14.190 H Free T3 Index Arterial Blood Glucose Arterial Blood Ionized Calcium Urine pH Urine WBC (Auto) Urine Creatinine Acetaminophen 5.0 L 04/15/21 04/15/21 04/15/21 20:49 21:23 23:15 WBC RBC Hgb Hct MCV RDW Plt Count Lymph % (Auto) Seg Neutrophils % Seg Neuts % (Manual) Lymphocytes % (Manual) Monocytes % (Manual) Seg Neutrophils # Seg Neutrophils # Man Lymphocytes # (Manual) Monocytes # (Manual) ABG pH 7.557 H POC ABG pCO2 30.0 L POC ABG pO2 493.3 H ABG Hemoglobin ABG Oxyhemoglobin 99.0 H ABG Sodium 131.5 L ABG Potassium 4.7 H ABG Chloride 94.0 L ABG Glucose 218 H Carboxyhemoglobin Sodium Potassium Chloride BUN Creatinine Glucose POC Glucose 173 H 207 H Calcium Phosphorus Magnesium AST ALT Total Creatine Kinase CK-MB (CK-2) Troponin T Total Protein Albumin HDL Cholesterol TSH Free T3 Index Arterial Blood Glucose 218 H Arterial Blood Ionized Calcium 5.4 H Urine pH Urine WBC (Auto) Urine Creatinine Acetaminophen 04/16/21 04/16/21 04/16/21 00:09 00:12 00:19 WBC RBC Hgb Hct MCV RDW Plt Count Lymph % (Auto) Seg Neutrophils % Seg Neuts % (Manual) Lymphocytes % (Manual) Monocytes % (Manual) Seg Neutrophils # Seg Neutrophils # Man Lymphocytes # (Manual) Monocytes # (Manual) ABG pH POC ABG pCO2 POC ABG pO2 ABG Hemoglobin ABG Oxyhemoglobin ABG Sodium ABG Potassium ABG Chloride ABG Glucose Carboxyhemoglobin Sodium Potassium 6.7 H* Chloride BUN Creatinine Glucose POC Glucose Calcium Phosphorus Magnesium AST ALT Total Creatine Kinase CK-MB (CK-2) Troponin T Total Protein Albumin HDL Cholesterol TSH Free T3 Index Arterial Blood Glucose Arterial Blood Ionized Calcium Urine pH 9.0 H Urine WBC (Auto) Urine Creatinine 24.4 H Acetaminophen 04/16/21 04/16/21 04/16/21 03:43 03:55 05:02 WBC 21.2 H RBC Hgb Hct 43.4 H MCV 98 H RDW Plt Count Lymph % (Auto) Seg Neutrophils % Seg Neuts % (Manual) 84.0 H Lymphocytes % (Manual) 2.0 L Monocytes % (Manual) 10.0 H Seg Neutrophils # Seg Neutrophils # Man 17.8 H Lymphocytes # (Manual) 0.4 L Monocytes # (Manual) 2.1 H ABG pH 7.461 H POC ABG pCO2 POC ABG pO2 ABG Hemoglobin ABG Oxyhemoglobin ABG Sodium 126.8 L ABG Potassium 5.4 H ABG Chloride 90.0 L ABG Glucose 325 H Carboxyhemoglobin Sodium Potassium Chloride BUN Creatinine Glucose POC Glucose 391 H Calcium Phosphorus Magnesium AST ALT Total Creatine Kinase CK-MB (CK-2) Troponin T Total Protein Albumin HDL Cholesterol TSH Free T3 Index Arterial Blood Glucose 325 H Arterial Blood Ionized Calcium Urine pH Urine WBC (Auto) Urine Creatinine Acetaminophen 04/16/21 04/16/21 04/16/21 05:02 11:34 16:09 WBC RBC Hgb Hct MCV RDW Plt Count Lymph % (Auto) Seg Neutrophils % Seg Neuts % (Manual) Lymphocytes % (Manual) Monocytes % (Manual) Seg Neutrophils # Seg Neutrophils # Man Lymphocytes # (Manual) Monocytes # (Manual) ABG pH POC ABG pCO2 POC ABG pO2 ABG Hemoglobin ABG Oxyhemoglobin ABG Sodium ABG Potassium ABG Chloride ABG Glucose Carboxyhemoglobin Sodium 131 L Potassium 5.9 H Chloride 88.7 L BUN 34 H Creatinine 2.9 H Glucose 249 H POC Glucose 382 H 300 H Calcium 10.4 H Phosphorus Magnesium AST 65 H ALT Total Creatine Kinase CK-MB (CK-2) Troponin T Total Protein Albumin 3.8 L HDL Cholesterol TSH Free T3 Index Arterial Blood Glucose Arterial Blood Ionized Calcium Urine pH Urine WBC (Auto) Urine Creatinine Acetaminophen 04/16/21 04/16/21 04/16/21 18:15 19:01 19:01 WBC RBC Hgb Hct MCV RDW Plt Count Lymph % (Auto) Seg Neutrophils % Seg Neuts % (Manual) Lymphocytes % (Manual) Monocytes % (Manual) Seg Neutrophils # Seg Neutrophils # Man Lymphocytes # (Manual) Monocytes # (Manual) ABG pH POC ABG pCO2 POC ABG pO2 ABG Hemoglobin ABG Oxyhemoglobin ABG Sodium ABG Potassium ABG Chloride ABG Glucose Carboxyhemoglobin Sodium 125 L Potassium 5.5 H Chloride 84.5 L BUN 37 H Creatinine 3.5 H Glucose 236 H POC Glucose 287 H Calcium Phosphorus Magnesium AST ALT Total Creatine Kinase CK-MB (CK-2) Troponin T Total Protein Albumin HDL Cholesterol TSH Free T3 Index 1.1 L Arterial Blood Glucose Arterial Blood Ionized Calcium Urine pH Urine WBC (Auto) Urine Creatinine Acetaminophen 04/16/21 04/16/21 04/17/21 19:01 23:48 03:09 WBC RBC Hgb Hct MCV RDW Plt Count Lymph % (Auto) Seg Neutrophils % Seg Neuts % (Manual) Lymphocytes % (Manual) Monocytes % (Manual) Seg Neutrophils # Seg Neutrophils # Man Lymphocytes # (Manual) Monocytes # (Manual) ABG pH 7.518 H POC ABG pCO2 POC ABG pO2 ABG Hemoglobin ABG Oxyhemoglobin ABG Sodium 126.4 L ABG Potassium ABG Chloride 89.0 L ABG Glucose 200 H Carboxyhemoglobin Sodium Potassium 5.6 H Chloride BUN Creatinine Glucose POC Glucose 243 H Calcium Phosphorus Magnesium AST ALT Total Creatine Kinase CK-MB (CK-2) Troponin T Total Protein Albumin HDL Cholesterol TSH Free T3 Index Arterial Blood Glucose 200 H Arterial Blood Ionized Calcium 4.4 L Urine pH Urine WBC (Auto) Urine Creatinine Acetaminophen 04/17/21 04/17/21 04/17/21 05:04 06:14 11:55 WBC RBC Hgb Hct MCV RDW Plt Count Lymph % (Auto) Seg Neutrophils % Seg Neuts % (Manual) Lymphocytes % (Manual) Monocytes % (Manual) Seg Neutrophils # Seg Neutrophils # Man Lymphocytes # (Manual) Monocytes # (Manual) ABG pH POC ABG pCO2 POC ABG pO2 ABG Hemoglobin ABG Oxyhemoglobin ABG Sodium ABG Potassium ABG Chloride ABG Glucose Carboxyhemoglobin Sodium 129 L Potassium Chloride 86.1 L BUN 39 H Creatinine 3.5 H Glucose 202 H POC Glucose 208 H 276 H Calcium Phosphorus Magnesium AST ALT Total Creatine Kinase 750 H CK-MB (CK-2) Troponin T 0.119 H* D Total Protein Albumin HDL Cholesterol 61 H TSH Free T3 Index Arterial Blood Glucose Arterial Blood Ionized Calcium Urine pH Urine WBC (Auto) Urine Creatinine Acetaminophen 04/17/21 04/17/21 04/17/21 15:35 15:35 17:07 WBC 17.1 H RBC Hgb Hct MCV RDW Plt Count Lymph % (Auto) Seg Neutrophils % Seg Neuts % (Manual) Lymphocytes % (Manual) Monocytes % (Manual) Seg Neutrophils # Seg Neutrophils # Man Lymphocytes # (Manual) Monocytes # (Manual) ABG pH POC ABG pCO2 POC ABG pO2 ABG Hemoglobin ABG Oxyhemoglobin ABG Sodium ABG Potassium ABG Chloride ABG Glucose Carboxyhemoglobin Sodium Potassium Chloride BUN Creatinine Glucose POC Glucose 148 H Calcium Phosphorus Magnesium AST ALT Total Creatine Kinase 615 H CK-MB (CK-2) 9.1 H Troponin T Total Protein Albumin HDL Cholesterol TSH Free T3 Index Arterial Blood Glucose Arterial Blood Ionized Calcium Urine pH Urine WBC (Auto) Urine Creatinine Acetaminophen 04/18/21 04/18/21 04/18/21 00:01 03:00 05:24 WBC RBC Hgb Hct MCV RDW Plt Count Lymph % (Auto) Seg Neutrophils % Seg Neuts % (Manual) Lymphocytes % (Manual) Monocytes % (Manual) Seg Neutrophils # Seg Neutrophils # Man Lymphocytes # (Manual) Monocytes # (Manual) ABG pH 7.497 H POC ABG pCO2 POC ABG pO2 77.7 L ABG Hemoglobin 10.4 L ABG Oxyhemoglobin ABG Sodium 129.7 L ABG Potassium 2.8 L ABG Chloride 92.0 L ABG Glucose 134 H Carboxyhemoglobin 0.3 L Sodium Potassium Chloride BUN Creatinine Glucose POC Glucose 192 H 162 H Calcium Phosphorus Magnesium AST ALT Total Creatine Kinase CK-MB (CK-2) Troponin T Total Protein Albumin HDL Cholesterol TSH Free T3 Index Arterial Blood Glucose 134 H Arterial Blood Ionized Calcium 4.3 L Urine pH Urine WBC (Auto) Urine Creatinine Acetaminophen 05/19/21 05/19/21 05/19/21 05:34 05:34 05:43 WBC 15.3 H RBC 3.34 L Hgb Hct MCV RDW 15.3 H Plt Count Lymph % (Auto) Seg Neutrophils % Seg Neuts % (Manual) Lymphocytes % (Manual) Monocytes % (Manual) Seg Neutrophils # Seg Neutrophils # Man Lymphocytes # (Manual) Monocytes # (Manual) ABG pH POC ABG pCO2 POC ABG pO2 ABG Hemoglobin ABG Oxyhemoglobin ABG Sodium ABG Potassium ABG Chloride ABG Glucose Carboxyhemoglobin Sodium 134 L Potassium 3.0 L D Chloride 93.5 L BUN 42 H Creatinine 3.1 H Glucose 152 H POC Glucose Calcium Phosphorus Magnesium 1.40 L AST ALT Total Creatine Kinase 427 H CK-MB (CK-2) Troponin T 0.081 H D Total Protein Albumin HDL Cholesterol TSH Free T3 Index Arterial Blood Glucose Arterial Blood Ionized Calcium Urine pH Urine WBC (Auto) Urine Creatinine Acetaminophen 04/18/21 04/18/21 04/18/21 09:11 11:34 17:24 WBC RBC Hgb Hct MCV RDW Plt Count Lymph % (Auto) Seg Neutrophils % Seg Neuts % (Manual) Lymphocytes % (Manual) Monocytes % (Manual) Seg Neutrophils # Seg Neutrophils # Man Lymphocytes # (Manual) Monocytes # (Manual) ABG pH POC ABG pCO2 POC ABG pO2 ABG Hemoglobin ABG Oxyhemoglobin ABG Sodium ABG Potassium ABG Chloride ABG Glucose Carboxyhemoglobin Sodium Potassium Chloride BUN Creatinine Glucose POC Glucose 170 H 151 H Calcium Phosphorus Magnesium AST ALT Total Creatine Kinase CK-MB (CK-2) Troponin T Total Protein Albumin HDL Cholesterol TSH Free T3 Index Arterial Blood Glucose Arterial Blood Ionized Calcium Urine pH Urine WBC (Auto) 34.0 H Urine Creatinine Acetaminophen 04/18/21 04/19/21 04/19/21 23:18 04:09 05:19 WBC RBC Hgb Hct MCV RDW Plt Count Lymph % (Auto) Seg Neutrophils % Seg Neuts % (Manual) Lymphocytes % (Manual) Monocytes % (Manual) Seg Neutrophils # Seg Neutrophils # Man Lymphocytes # (Manual) Monocytes # (Manual) ABG pH 7.476 H POC ABG pCO2 POC ABG pO2 79.4 L ABG Hemoglobin 10.7 L ABG Oxyhemoglobin ABG Sodium 131.2 L ABG Potassium 2.8 L ABG Chloride 94.0 L ABG Glucose 209 H Carboxyhemoglobin 0.3 L Sodium Potassium Chloride BUN Creatinine Glucose POC Glucose 182 H 204 H Calcium Phosphorus Magnesium AST ALT Total Creatine Kinase CK-MB (CK-2) Troponin T Total Protein Albumin HDL Cholesterol TSH Free T3 Index Arterial Blood Glucose 209 H Arterial Blood Ionized Calcium Urine pH Urine WBC (Auto) Urine Creatinine Acetaminophen 04/19/21 04/19/21 04/19/21 07:30 07:30 10:35 WBC 14.8 H RBC 3.20 L Hgb Hct MCV 98 H RDW Plt Count 137 L Lymph % (Auto) Seg Neutrophils % Seg Neuts % (Manual) Lymphocytes % (Manual) Monocytes % (Manual) Seg Neutrophils # Seg Neutrophils # Man Lymphocytes # (Manual) Monocytes # (Manual) ABG pH 7.464 H POC ABG pCO2 POC ABG pO2 81.8 L ABG Hemoglobin 10.8 L ABG Oxyhemoglobin ABG Sodium 129.6 L ABG Potassium ABG Chloride 95.0 L ABG Glucose 238 H Carboxyhemoglobin Sodium 133 L Potassium 2.8 L* Chloride 94.4 L BUN 43 H Creatinine 2.7 H Glucose 255 H POC Glucose Calcium 8.0 L Phosphorus Magnesium AST ALT Total Creatine Kinase CK-MB (CK-2) Troponin T 0.060 H D Total Protein Albumin HDL Cholesterol TSH Free T3 Index Arterial Blood Glucose 238 H Arterial Blood Ionized Calcium Urine pH Urine WBC (Auto) Urine Creatinine Acetaminophen 04/19/21 04/19/21 04/19/21 11:48 20:40 23:04 WBC RBC Hgb Hct MCV RDW Plt Count Lymph % (Auto) Seg Neutrophils % Seg Neuts % (Manual) Lymphocytes % (Manual) Monocytes % (Manual) Seg Neutrophils # Seg Neutrophils # Man Lymphocytes # (Manual) Monocytes # (Manual) ABG pH POC ABG pCO2 POC ABG pO2 ABG Hemoglobin ABG Oxyhemoglobin ABG Sodium ABG Potassium ABG Chloride ABG Glucose Carboxyhemoglobin Sodium Potassium 3.4 L D Chloride BUN Creatinine Glucose POC Glucose 208 H 173 H Calcium Phosphorus Magnesium AST ALT Total Creatine Kinase CK-MB (CK-2) Troponin T Total Protein Albumin HDL Cholesterol TSH Free T3 Index Arterial Blood Glucose Arterial Blood Ionized Calcium Urine pH Urine WBC (Auto) Urine Creatinine Acetaminophen 04/20/21 04/20/21 04/20/21 02:56 03:32 03:32 WBC 13.2 H RBC 3.18 L Hgb Hct MCV RDW Plt Count Lymph % (Auto) Seg Neutrophils % Seg Neuts % (Manual) Lymphocytes % (Manual) Monocytes % (Manual) Seg Neutrophils # Seg Neutrophils # Man Lymphocytes # (Manual) Monocytes # (Manual) ABG pH 7.526 H POC ABG pCO2 POC ABG pO2 ABG Hemoglobin 10.5 L ABG Oxyhemoglobin ABG Sodium 133.5 L ABG Potassium ABG Chloride ABG Glucose 157 H Carboxyhemoglobin 0.3 L Sodium 135 L Potassium Chloride 96.7 L BUN 40 H Creatinine 2.3 H Glucose 142 H POC Glucose Calcium Phosphorus Magnesium AST ALT Total Creatine Kinase CK-MB (CK-2) Troponin T 0.065 H Total Protein Albumin HDL Cholesterol TSH Free T3 Index Arterial Blood Glucose 157 H Arterial Blood Ionized Calcium Urine pH Urine WBC (Auto) Urine Creatinine Acetaminophen 04/20/21 04/20/21 04/20/21 03:46 05:42 11:50 WBC RBC Hgb Hct MCV RDW Plt Count Lymph % (Auto) Seg Neutrophils % Seg Neuts % (Manual) Lymphocytes % (Manual) Monocytes % (Manual) Seg Neutrophils # Seg Neutrophils # Man Lymphocytes # (Manual) Monocytes # (Manual) ABG pH POC ABG pCO2 POC ABG pO2 ABG Hemoglobin ABG Oxyhemoglobin ABG Sodium ABG Potassium ABG Chloride ABG Glucose Carboxyhemoglobin Sodium Potassium Chloride BUN Creatinine Glucose POC Glucose 160 H 194 H Calcium Phosphorus 2.10 L Magnesium AST ALT Total Creatine Kinase CK-MB (CK-2) Troponin T Total Protein Albumin HDL Cholesterol TSH Free T3 Index Arterial Blood Glucose Arterial Blood Ionized Calcium Urine pH Urine WBC (Auto) Urine Creatinine Acetaminophen 04/20/21 04/20/21 04/21/21 17:09 23:18 05:26 WBC RBC Hgb Hct MCV RDW Plt Count Lymph % (Auto) Seg Neutrophils % Seg Neuts % (Manual) Lymphocytes % (Manual) Monocytes % (Manual) Seg Neutrophils # Seg Neutrophils # Man Lymphocytes # (Manual) Monocytes # (Manual) ABG pH POC ABG pCO2 POC ABG pO2 ABG Hemoglobin ABG Oxyhemoglobin ABG Sodium ABG Potassium ABG Chloride ABG Glucose Carboxyhemoglobin Sodium Potassium Chloride BUN Creatinine Glucose POC Glucose 153 H 162 H 164 H Calcium Phosphorus Magnesium AST ALT Total Creatine Kinase CK-MB (CK-2) Troponin T Total Protein Albumin HDL Cholesterol TSH Free T3 Index Arterial Blood Glucose Arterial Blood Ionized Calcium Urine pH Urine WBC (Auto) Urine Creatinine Acetaminophen 04/21/21 04/21/21 04/21/21 05:51 05:51 12:12 WBC RBC 3.20 L Hgb Hct MCV 99 H RDW 15.3 H Plt Count Lymph % (Auto) Seg Neutrophils % Seg Neuts % (Manual) Lymphocytes % (Manual) Monocytes % (Manual) Seg Neutrophils # Seg Neutrophils # Man Lymphocytes # (Manual) Monocytes # (Manual) ABG pH POC ABG pCO2 POC ABG pO2 ABG Hemoglobin ABG Oxyhemoglobin ABG Sodium ABG Potassium ABG Chloride ABG Glucose Carboxyhemoglobin Sodium Potassium Chloride 96.6 L BUN 42 H Creatinine 2.1 H Glucose 171 H POC Glucose 167 H Calcium Phosphorus Magnesium AST ALT Total Creatine Kinase CK-MB (CK-2) Troponin T Total Protein Albumin HDL Cholesterol TSH Free T3 Index Arterial Blood Glucose Arterial Blood Ionized Calcium Urine pH Urine WBC (Auto) Urine Creatinine Acetaminophen 04/21/21 04/21/21 04/22/21 17:13 23:42 05:29 WBC RBC Hgb Hct MCV RDW Plt Count Lymph % (Auto) Seg Neutrophils % Seg Neuts % (Manual) Lymphocytes % (Manual) Monocytes % (Manual) Seg Neutrophils # Seg Neutrophils # Man Lymphocytes # (Manual) Monocytes # (Manual) ABG pH POC ABG pCO2 POC ABG pO2 ABG Hemoglobin ABG Oxyhemoglobin ABG Sodium ABG Potassium ABG Chloride ABG Glucose Carboxyhemoglobin Sodium Potassium Chloride BUN Creatinine Glucose POC Glucose 178 H 253 H 208 H Calcium Phosphorus Magnesium AST ALT Total Creatine Kinase CK-MB (CK-2) Troponin T Total Protein Albumin HDL Cholesterol TSH Free T3 Index Arterial Blood Glucose Arterial Blood Ionized Calcium Urine pH Urine WBC (Auto) Urine Creatinine Acetaminophen 04/22/21 04/22/21 04/22/21 08:00 08:00 12:06 WBC 12.9 H RBC Hgb Hct MCV RDW Plt Count Lymph % (Auto) Seg Neutrophils % Seg Neuts % (Manual) Lymphocytes % (Manual) Monocytes % (Manual) Seg Neutrophils # Seg Neutrophils # Man Lymphocytes # (Manual) Monocytes # (Manual) ABG pH POC ABG pCO2 POC ABG pO2 ABG Hemoglobin ABG Oxyhemoglobin ABG Sodium ABG Potassium ABG Chloride ABG Glucose Carboxyhemoglobin Sodium Potassium Chloride BUN 47 H Creatinine 1.9 H Glucose 252 H POC Glucose 298 H Calcium Phosphorus Magnesium AST ALT Total Creatine Kinase CK-MB (CK-2) Troponin T Total Protein Albumin HDL Cholesterol TSH Free T3 Index Arterial Blood Glucose Arterial Blood Ionized Calcium Urine pH Urine WBC (Auto) Urine Creatinine Acetaminophen 04/22/21 04/22/21 04/23/21 17:34 23:01 05:08 WBC RBC Hgb Hct MCV RDW Plt Count Lymph % (Auto) Seg Neutrophils % Seg Neuts % (Manual) Lymphocytes % (Manual) Monocytes % (Manual) Seg Neutrophils # Seg Neutrophils # Man Lymphocytes # (Manual) Monocytes # (Manual) ABG pH POC ABG pCO2 POC ABG pO2 ABG Hemoglobin ABG Oxyhemoglobin ABG Sodium ABG Potassium ABG Chloride ABG Glucose Carboxyhemoglobin Sodium Potassium Chloride BUN Creatinine Glucose POC Glucose 259 H 280 H 223 H Calcium Phosphorus Magnesium AST ALT Total Creatine Kinase CK-MB (CK-2) Troponin T Total Protein Albumin HDL Cholesterol TSH Free T3 Index Arterial Blood Glucose Arterial Blood Ionized Calcium Urine pH Urine WBC (Auto) Urine Creatinine Acetaminophen 04/23/21 04/23/21 04/23/21 07:02 11:57 17:33 WBC RBC Hgb Hct MCV RDW Plt Count Lymph % (Auto) Seg Neutrophils % Seg Neuts % (Manual) Lymphocytes % (Manual) Monocytes % (Manual) Seg Neutrophils # Seg Neutrophils # Man Lymphocytes # (Manual) Monocytes # (Manual) ABG pH POC ABG pCO2 POC ABG pO2 ABG Hemoglobin ABG Oxyhemoglobin ABG Sodium ABG Potassium ABG Chloride ABG Glucose Carboxyhemoglobin Sodium Potassium Chloride 97.7 L BUN 57 H Creatinine 2.0 H Glucose 253 H POC Glucose 310 H 235 H Calcium Phosphorus Magnesium AST ALT Total Creatine Kinase CK-MB (CK-2) Troponin T Total Protein Albumin HDL Cholesterol TSH Free T3 Index Arterial Blood Glucose Arterial Blood Ionized Calcium Urine pH Urine WBC (Auto) Urine Creatinine Acetaminophen 04/23/21 04/24/21 04/24/21 23:15 05:23 05:46 WBC RBC Hgb Hct MCV RDW Plt Count Lymph % (Auto) Seg Neutrophils % Seg Neuts % (Manual) Lymphocytes % (Manual) Monocytes % (Manual) Seg Neutrophils # Seg Neutrophils # Man Lymphocytes # (Manual) Monocytes # (Manual) ABG pH POC ABG pCO2 POC ABG pO2 ABG Hemoglobin ABG Oxyhemoglobin ABG Sodium ABG Potassium ABG Chloride ABG Glucose Carboxyhemoglobin Sodium Potassium 5.2 H D Chloride BUN 68 H Creatinine 2.3 H Glucose 277 H POC Glucose 197 H 274 H Calcium Phosphorus Magnesium AST ALT Total Creatine Kinase CK-MB (CK-2) Troponin T Total Protein Albumin HDL Cholesterol TSH Free T3 Index Arterial Blood Glucose Arterial Blood Ionized Calcium Urine pH Urine WBC (Auto) Urine Creatinine Acetaminophen 04/24/21 04/24/21 04/24/21 11:33 11:52 17:49 WBC RBC Hgb Hct MCV RDW Plt Count Lymph % (Auto) Seg Neutrophils % Seg Neuts % (Manual) Lymphocytes % (Manual) Monocytes % (Manual) Seg Neutrophils # Seg Neutrophils # Man Lymphocytes # (Manual) Monocytes # (Manual) ABG pH POC ABG pCO2 POC ABG pO2 72.7 L ABG Hemoglobin 11.6 L ABG Oxyhemoglobin 92.9 L ABG Sodium ABG Potassium ABG Chloride ABG Glucose 269 H Carboxyhemoglobin Sodium Potassium Chloride BUN Creatinine Glucose POC Glucose 223 H 252 H Calcium Phosphorus Magnesium AST ALT Total Creatine Kinase CK-MB (CK-2) Troponin T Total Protein Albumin HDL Cholesterol TSH Free T3 Index Arterial Blood Glucose 269 H Arterial Blood Ionized Calcium Urine pH Urine WBC (Auto) Urine Creatinine Acetaminophen 04/24/21 04/24/21 04/25/21 21:00 23:48 03:06 WBC RBC Hgb Hct MCV RDW Plt Count Lymph % (Auto) Seg Neutrophils % Seg Neuts % (Manual) Lymphocytes % (Manual) Monocytes % (Manual) Seg Neutrophils # Seg Neutrophils # Man Lymphocytes # (Manual) Monocytes # (Manual) ABG pH 7.521 H 7.451 H POC ABG pCO2 POC ABG pO2 80.7 L 77.1 L ABG Hemoglobin 10.4 L 11.2 L ABG Oxyhemoglobin ABG Sodium ABG Potassium ABG Chloride ABG Glucose 186 H 165 H Carboxyhemoglobin 0 L Sodium Potassium Chloride BUN Creatinine Glucose POC Glucose 141 H Calcium Phosphorus Magnesium AST ALT Total Creatine Kinase CK-MB (CK-2) Troponin T Total Protein Albumin HDL Cholesterol TSH Free T3 Index Arterial Blood Glucose 186 H 165 H Arterial Blood Ionized Calcium Urine pH Urine WBC (Auto) Urine Creatinine Acetaminophen 04/25/21 04/25/21 04/25/21 03:56 03:56 06:03 WBC 12.3 H RBC 3.40 L Hgb Hct MCV RDW Plt Count Lymph % (Auto) Seg Neutrophils % Seg Neuts % (Manual) Lymphocytes % (Manual) Monocytes % (Manual) Seg Neutrophils # Seg Neutrophils # Man Lymphocytes # (Manual) Monocytes # (Manual) ABG pH POC ABG pCO2 POC ABG pO2 ABG Hemoglobin ABG Oxyhemoglobin ABG Sodium ABG Potassium ABG Chloride ABG Glucose Carboxyhemoglobin Sodium Potassium Chloride BUN 78 H Creatinine 2.5 H Glucose 152 H POC Glucose 171 H Calcium Phosphorus Magnesium AST ALT Total Creatine Kinase CK-MB (CK-2) Troponin T Total Protein Albumin HDL Cholesterol TSH Free T3 Index Arterial Blood Glucose Arterial Blood Ionized Calcium Urine pH Urine WBC (Auto) Urine Creatinine Acetaminophen 04/25/21 04/25/21 04/26/21 11:43 15:37 00:05 WBC RBC Hgb Hct MCV RDW Plt Count Lymph % (Auto) Seg Neutrophils % Seg Neuts % (Manual) Lymphocytes % (Manual) Monocytes % (Manual) Seg Neutrophils # Seg Neutrophils # Man Lymphocytes # (Manual) Monocytes # (Manual) ABG pH POC ABG pCO2 POC ABG pO2 ABG Hemoglobin ABG Oxyhemoglobin ABG Sodium ABG Potassium ABG Chloride ABG Glucose Carboxyhemoglobin Sodium Potassium Chloride BUN Creatinine Glucose POC Glucose 181 H 167 H 144 H Calcium Phosphorus Magnesium AST ALT Total Creatine Kinase CK-MB (CK-2) Troponin T Total Protein Albumin HDL Cholesterol TSH Free T3 Index Arterial Blood Glucose Arterial Blood Ionized Calcium Urine pH Urine WBC (Auto) Urine Creatinine Acetaminophen 04/26/21 04/26/21 04/26/21 04:30 05:44 09:30 WBC RBC Hgb Hct MCV RDW Plt Count Lymph % (Auto) Seg Neutrophils % Seg Neuts % (Manual) Lymphocytes % (Manual) Monocytes % (Manual) Seg Neutrophils # Seg Neutrophils # Man Lymphocytes # (Manual) Monocytes # (Manual) ABG pH 7.529 H POC ABG pCO2 POC ABG pO2 66.1 L ABG Hemoglobin 11.2 L ABG Oxyhemoglobin 92.8 L ABG Sodium ABG Potassium ABG Chloride ABG Glucose 216 H Carboxyhemoglobin 0.3 L Sodium Potassium Chloride BUN 82 H Creatinine 2.7 H Glucose 238 H POC Glucose 202 H Calcium Phosphorus Magnesium AST ALT Total Creatine Kinase CK-MB (CK-2) Troponin T Total Protein Albumin HDL Cholesterol TSH Free T3 Index Arterial Blood Glucose 216 H Arterial Blood Ionized Calcium Urine pH Urine WBC (Auto) Urine Creatinine Acetaminophen 04/26/21 04/26/21 04/26/21 09:30 11:32 17:21 WBC 24.7 H RBC 3.32 L Hgb Hct MCV RDW Plt Count Lymph % (Auto) Seg Neutrophils % Seg Neuts % (Manual) Lymphocytes % (Manual) Monocytes % (Manual) Seg Neutrophils # Seg Neutrophils # Man Lymphocytes # (Manual) Monocytes # (Manual) ABG pH POC ABG pCO2 POC ABG pO2 ABG Hemoglobin ABG Oxyhemoglobin ABG Sodium ABG Potassium ABG Chloride ABG Glucose Carboxyhemoglobin Sodium Potassium Chloride BUN Creatinine Glucose POC Glucose 245 H 264 H Calcium Phosphorus Magnesium AST ALT Total Creatine Kinase CK-MB (CK-2) Troponin T Total Protein Albumin HDL Cholesterol TSH Free T3 Index Arterial Blood Glucose Arterial Blood Ionized Calcium Urine pH Urine WBC (Auto) Urine Creatinine Acetaminophen 04/26/21 04/27/21 04/27/21 23:18 04:23 04:54 WBC RBC Hgb Hct MCV RDW Plt Count Lymph % (Auto) Seg Neutrophils % Seg Neuts % (Manual) Lymphocytes % (Manual) Monocytes % (Manual) Seg Neutrophils # Seg Neutrophils # Man Lymphocytes # (Manual) Monocytes # (Manual) ABG pH 7.549 H POC ABG pCO2 30.0 L POC ABG pO2 64.9 L ABG Hemoglobin 11 L ABG Oxyhemoglobin 93.3 L ABG Sodium ABG Potassium ABG Chloride ABG Glucose 325 H Carboxyhemoglobin 0.3 L Sodium Potassium Chloride BUN Creatinine Glucose POC Glucose 201 H 298 H Calcium Phosphorus Magnesium AST ALT Total Creatine Kinase CK-MB (CK-2) Troponin T Total Protein Albumin HDL Cholesterol TSH Free T3 Index Arterial Blood Glucose 325 H Arterial Blood Ionized Calcium Urine pH Urine WBC (Auto) Urine Creatinine Acetaminophen 04/27/21 04/27/21 04/27/21 07:52 07:52 11:22 WBC 23.0 H RBC 3.32 L Hgb Hct MCV RDW 15.5 H Plt Count Lymph % (Auto) Seg Neutrophils % Seg Neuts % (Manual) Lymphocytes % (Manual) Monocytes % (Manual) Seg Neutrophils # Seg Neutrophils # Man Lymphocytes # (Manual) Monocytes # (Manual) ABG pH POC ABG pCO2 POC ABG pO2 ABG Hemoglobin ABG Oxyhemoglobin ABG Sodium ABG Potassium ABG Chloride ABG Glucose Carboxyhemoglobin Sodium Potassium 3.5 L Chloride BUN 90 H Creatinine 2.8 H Glucose 286 H POC Glucose 251 H Calcium Phosphorus Magnesium AST ALT Total Creatine Kinase CK-MB (CK-2) Troponin T Total Protein Albumin HDL Cholesterol TSH Free T3 Index Arterial Blood Glucose Arterial Blood Ionized Calcium Urine pH Urine WBC (Auto) Urine Creatinine Acetaminophen 04/27/21 04/27/21 04/27/21 17:21 17:45 23:05 WBC RBC Hgb Hct MCV RDW Plt Count Lymph % (Auto) Seg Neutrophils % Seg Neuts % (Manual) Lymphocytes % (Manual) Monocytes % (Manual) Seg Neutrophils # Seg Neutrophils # Man Lymphocytes # (Manual) Monocytes # (Manual) ABG pH POC ABG pCO2 POC ABG pO2 ABG Hemoglobin ABG Oxyhemoglobin ABG Sodium ABG Potassium ABG Chloride ABG Glucose Carboxyhemoglobin Sodium Potassium Chloride BUN Creatinine Glucose POC Glucose 180 H 178 H 189 H Calcium Phosphorus Magnesium AST ALT Total Creatine Kinase CK-MB (CK-2) Troponin T Total Protein Albumin HDL Cholesterol TSH Free T3 Index Arterial Blood Glucose Arterial Blood Ionized Calcium Urine pH Urine WBC (Auto) Urine Creatinine Acetaminophen 04/28/21 04/28/21 04/28/21 03:14 04:13 04:13 WBC 17.6 H RBC 3.03 L Hgb 9.7 L Hct 29.5 L MCV RDW Plt Count Lymph % (Auto) Seg Neutrophils % Seg Neuts % (Manual) Lymphocytes % (Manual) Monocytes % (Manual) Seg Neutrophils # Seg Neutrophils # Man Lymphocytes # (Manual) Monocytes # (Manual) ABG pH 7.507 H POC ABG pCO2 POC ABG pO2 62.0 L ABG Hemoglobin 10.2 L ABG Oxyhemoglobin 91.9 L ABG Sodium ABG Potassium ABG Chloride ABG Glucose 337 H Carboxyhemoglobin 0.2 L Sodium Potassium Chloride BUN 101 H Creatinine 3.1 H Glucose 304 H POC Glucose Calcium Phosphorus Magnesium AST 61 H ALT 64 H Total Creatine Kinase CK-MB (CK-2) Troponin T Total Protein 6.2 L Albumin 2.6 L HDL Cholesterol TSH Free T3 Index Arterial Blood Glucose 337 H Arterial Blood Ionized Calcium Urine pH Urine WBC (Auto) Urine Creatinine Acetaminophen 04/28/21 04/28/21 04/28/21 05:01 11:28 18:23 WBC RBC Hgb Hct MCV RDW Plt Count Lymph % (Auto) Seg Neutrophils % Seg Neuts % (Manual) Lymphocytes % (Manual) Monocytes % (Manual) Seg Neutrophils # Seg Neutrophils # Man Lymphocytes # (Manual) Monocytes # (Manual) ABG pH POC ABG pCO2 POC ABG pO2 ABG Hemoglobin ABG Oxyhemoglobin ABG Sodium ABG Potassium ABG Chloride ABG Glucose Carboxyhemoglobin Sodium Potassium Chloride BUN Creatinine Glucose POC Glucose 282 H 263 H 200 H Calcium Phosphorus Magnesium AST ALT Total Creatine Kinase CK-MB (CK-2) Troponin T Total Protein Albumin HDL Cholesterol TSH Free T3 Index Arterial Blood Glucose Arterial Blood Ionized Calcium Urine pH Urine WBC (Auto) Urine Creatinine Acetaminophen 04/28/21 04/29/21 04/29/21 23:49 03:24 04:22 WBC RBC Hgb Hct MCV RDW Plt Count Lymph % (Auto) Seg Neutrophils % Seg Neuts % (Manual) Lymphocytes % (Manual) Monocytes % (Manual) Seg Neutrophils # Seg Neutrophils # Man Lymphocytes # (Manual) Monocytes # (Manual) ABG pH 7.546 H POC ABG pCO2 POC ABG pO2 52.4 L ABG Hemoglobin 10.5 L ABG Oxyhemoglobin 88.3 L ABG Sodium ABG Potassium ABG Chloride ABG Glucose 217 H Carboxyhemoglobin 0.4 L Sodium 148 H Potassium Chloride BUN 110 H Creatinine 3.1 H Glucose 208 H POC Glucose 238 H Calcium Phosphorus Magnesium AST ALT Total Creatine Kinase CK-MB (CK-2) Troponin T Total Protein Albumin HDL Cholesterol TSH Free T3 Index Arterial Blood Glucose 217 H Arterial Blood Ionized Calcium Urine pH Urine WBC (Auto) Urine Creatinine Acetaminophen 04/29/21 04/29/21 04/29/21 04:22 05:08 11:26 WBC 15.2 H RBC 3.30 L Hgb 9.8 L Hct MCV RDW Plt Count Lymph % (Auto) Seg Neutrophils % Seg Neuts % (Manual) Lymphocytes % (Manual) Monocytes % (Manual) Seg Neutrophils # Seg Neutrophils # Man Lymphocytes # (Manual) Monocytes # (Manual) ABG pH POC ABG pCO2 POC ABG pO2 ABG Hemoglobin ABG Oxyhemoglobin ABG Sodium ABG Potassium ABG Chloride ABG Glucose Carboxyhemoglobin Sodium Potassium Chloride BUN Creatinine Glucose POC Glucose 181 H 218 H Calcium Phosphorus Magnesium AST ALT Total Creatine Kinase CK-MB (CK-2) Troponin T Total Protein Albumin HDL Cholesterol TSH Free T3 Index Arterial Blood Glucose Arterial Blood Ionized Calcium Urine pH Urine WBC (Auto) Urine Creatinine Acetaminophen 04/29/21 04/29/21 04/30/21 17:06 23:06 03:58 WBC RBC Hgb Hct MCV RDW Plt Count Lymph % (Auto) Seg Neutrophils % Seg Neuts % (Manual) Lymphocytes % (Manual) Monocytes % (Manual) Seg Neutrophils # Seg Neutrophils # Man Lymphocytes # (Manual) Monocytes # (Manual) ABG pH 7.547 H POC ABG pCO2 31.3 L POC ABG pO2 58.4 L ABG Hemoglobin 9.6 L ABG Oxyhemoglobin 91.1 L ABG Sodium ABG Potassium ABG Chloride 108.0 H ABG Glucose 248 H Carboxyhemoglobin 0.2 L Sodium Potassium Chloride BUN Creatinine Glucose POC Glucose 223 H 252 H Calcium Phosphorus Magnesium AST ALT Total Creatine Kinase CK-MB (CK-2) Troponin T Total Protein Albumin HDL Cholesterol TSH Free T3 Index Arterial Blood Glucose 248 H Arterial Blood Ionized Calcium Urine pH Urine WBC (Auto) Urine Creatinine Acetaminophen 04/30/21 04/30/21 04/30/21 05:23 05:54 11:47 WBC RBC Hgb Hct MCV RDW Plt Count Lymph % (Auto) Seg Neutrophils % Seg Neuts % (Manual) Lymphocytes % (Manual) Monocytes % (Manual) Seg Neutrophils # Seg Neutrophils # Man Lymphocytes # (Manual) Monocytes # (Manual) ABG pH POC ABG pCO2 POC ABG pO2 ABG Hemoglobin ABG Oxyhemoglobin ABG Sodium ABG Potassium ABG Chloride ABG Glucose Carboxyhemoglobin Sodium Potassium Chloride BUN 118 H Creatinine 3.3 H Glucose 263 H POC Glucose 244 H 237 H Calcium Phosphorus Magnesium AST ALT Total Creatine Kinase CK-MB (CK-2) Troponin T Total Protein Albumin HDL Cholesterol TSH Free T3 Index Arterial Blood Glucose Arterial Blood Ionized Calcium Urine pH Urine WBC (Auto) Urine Creatinine Acetaminophen 04/30/21 04/30/21 04/30/21 17:26 17:45 23:51 WBC RBC Hgb Hct MCV RDW Plt Count Lymph % (Auto) Seg Neutrophils % Seg Neuts % (Manual) Lymphocytes % (Manual) Monocytes % (Manual) Seg Neutrophils # Seg Neutrophils # Man Lymphocytes # (Manual) Monocytes # (Manual) ABG pH POC ABG pCO2 POC ABG pO2 ABG Hemoglobin ABG Oxyhemoglobin ABG Sodium ABG Potassium ABG Chloride ABG Glucose Carboxyhemoglobin Sodium Potassium Chloride BUN Creatinine Glucose POC Glucose 193 H 197 H Calcium Phosphorus Magnesium AST ALT Total Creatine Kinase CK-MB (CK-2) Troponin T Total Protein Albumin HDL Cholesterol TSH Free T3 Index Arterial Blood Glucose Arterial Blood Ionized Calcium Urine pH Urine WBC (Auto) 48.0 H Urine Creatinine Acetaminophen 05/01/21 05/01/21 05/01/21 04:02 04:57 07:11 WBC 12.3 H RBC 2.83 L Hgb 8.8 L Hct 27.3 L MCV RDW Plt Count Lymph % (Auto) Seg Neutrophils % Seg Neuts % (Manual) 80.0 H Lymphocytes % (Manual) 5.0 L Monocytes % (Manual) Seg Neutrophils # Seg Neutrophils # Man 9.8 H Lymphocytes # (Manual) 0.6 L Monocytes # (Manual) ABG pH 7.466 H POC ABG pCO2 POC ABG pO2 61.4 L ABG Hemoglobin 9.0 L ABG Oxyhemoglobin 91.1 L ABG Sodium ABG Potassium ABG Chloride 110.0 H ABG Glucose 245 H Carboxyhemoglobin Sodium Potassium Chloride BUN Creatinine Glucose POC Glucose 193 H Calcium Phosphorus Magnesium AST ALT Total Creatine Kinase CK-MB (CK-2) Troponin T Total Protein Albumin HDL Cholesterol TSH Free T3 Index Arterial Blood Glucose 245 H Arterial Blood Ionized Calcium Urine pH Urine WBC (Auto) Urine Creatinine Acetaminophen 05/01/21 05/01/21 05/01/21 07:11 07:45 11:30 WBC RBC Hgb Hct MCV RDW Plt Count Lymph % (Auto) Seg Neutrophils % Seg Neuts % (Manual) Lymphocytes % (Manual) Monocytes % (Manual) Seg Neutrophils # Seg Neutrophils # Man Lymphocytes # (Manual) Monocytes # (Manual) ABG pH POC ABG pCO2 POC ABG pO2 ABG Hemoglobin ABG Oxyhemoglobin ABG Sodium ABG Potassium ABG Chloride ABG Glucose Carboxyhemoglobin Sodium 146 H Potassium Chloride 108.4 H BUN 122 H Creatinine 3.4 H Glucose 235 H POC Glucose 212 H 247 H Calcium Phosphorus Magnesium AST ALT Total Creatine Kinase CK-MB (CK-2) Troponin T Total Protein Albumin HDL Cholesterol TSH Free T3 Index Arterial Blood Glucose Arterial Blood Ionized Calcium Urine pH Urine WBC (Auto) Urine Creatinine Acetaminophen 05/01/21 05/01/21 05/01/21 11:31 17:42 23:49 WBC RBC Hgb Hct MCV RDW Plt Count Lymph % (Auto) Seg Neutrophils % Seg Neuts % (Manual) Lymphocytes % (Manual) Monocytes % (Manual) Seg Neutrophils # Seg Neutrophils # Man Lymphocytes # (Manual) Monocytes # (Manual) ABG pH POC ABG pCO2 POC ABG pO2 ABG Hemoglobin ABG Oxyhemoglobin ABG Sodium ABG Potassium ABG Chloride ABG Glucose Carboxyhemoglobin Sodium Potassium Chloride BUN Creatinine Glucose POC Glucose 258 H 171 H 167 H Calcium Phosphorus Magnesium AST ALT Total Creatine Kinase CK-MB (CK-2) Troponin T Total Protein Albumin HDL Cholesterol TSH Free T3 Index Arterial Blood Glucose Arterial Blood Ionized Calcium Urine pH Urine WBC (Auto) Urine Creatinine Acetaminophen 05/02/21 05/02/21 05/02/21 05:12 08:34 11:53 WBC RBC Hgb Hct MCV RDW Plt Count Lymph % (Auto) Seg Neutrophils % Seg Neuts % (Manual) Lymphocytes % (Manual) Monocytes % (Manual) Seg Neutrophils # Seg Neutrophils # Man Lymphocytes # (Manual) Monocytes # (Manual) ABG pH POC ABG pCO2 POC ABG pO2 ABG Hemoglobin ABG Oxyhemoglobin ABG Sodium ABG Potassium ABG Chloride ABG Glucose Carboxyhemoglobin Sodium 148 H Potassium Chloride 110.4 H BUN 124 H Creatinine 3.4 H Glucose 208 H POC Glucose 163 H 185 H Calcium 8.3 L Phosphorus Magnesium AST ALT Total Creatine Kinase CK-MB (CK-2) Troponin T Total Protein Albumin HDL Cholesterol TSH Free T3 Index Arterial Blood Glucose Arterial Blood Ionized Calcium Urine pH Urine WBC (Auto) Urine Creatinine Acetaminophen 05/02/21 05/02/21 05/03/21 17:28 23:32 03:57 WBC RBC Hgb Hct MCV RDW Plt Count Lymph % (Auto) Seg Neutrophils % Seg Neuts % (Manual) Lymphocytes % (Manual) Monocytes % (Manual) Seg Neutrophils # Seg Neutrophils # Man Lymphocytes # (Manual) Monocytes # (Manual) ABG pH 7.531 H POC ABG pCO2 31.0 L POC ABG pO2 64.3 L ABG Hemoglobin 9.0 L ABG Oxyhemoglobin 92.6 L ABG Sodium 145.7 H ABG Potassium ABG Chloride 112.0 H ABG Glucose 202 H Carboxyhemoglobin Sodium Potassium Chloride BUN Creatinine Glucose POC Glucose 147 H 202 H Calcium Phosphorus Magnesium AST ALT Total Creatine Kinase CK-MB (CK-2) Troponin T Total Protein Albumin HDL Cholesterol TSH Free T3 Index Arterial Blood Glucose 202 H Arterial Blood Ionized Calcium Urine pH Urine WBC (Auto) Urine Creatinine Acetaminophen 05/03/21 05/03/21 05/03/21 05:14 05:44 11:10 WBC RBC Hgb Hct MCV RDW Plt Count Lymph % (Auto) Seg Neutrophils % Seg Neuts % (Manual) Lymphocytes % (Manual) Monocytes % (Manual) Seg Neutrophils # Seg Neutrophils # Man Lymphocytes # (Manual) Monocytes # (Manual) ABG pH POC ABG pCO2 POC ABG pO2 ABG Hemoglobin ABG Oxyhemoglobin ABG Sodium ABG Potassium ABG Chloride ABG Glucose Carboxyhemoglobin Sodium 147 H Potassium Chloride 109.7 H BUN 121 H Creatinine 3.1 H Glucose 190 H POC Glucose 175 H 202 H Calcium Phosphorus Magnesium AST ALT Total Creatine Kinase CK-MB (CK-2) Troponin T Total Protein Albumin HDL Cholesterol TSH Free T3 Index Arterial Blood Glucose Arterial Blood Ionized Calcium Urine pH Urine WBC (Auto) Urine Creatinine Acetaminophen 05/03/21 05/04/21 05/04/21 23:58 04:57 04:57 WBC RBC 2.61 L Hgb 8.2 L Hct 25.4 L MCV 98 H RDW 15.3 H Plt Count Lymph % (Auto) Seg Neutrophils % Seg Neuts % (Manual) Lymphocytes % (Manual) Monocytes % (Manual) Seg Neutrophils # Seg Neutrophils # Man Lymphocytes # (Manual) Monocytes # (Manual) ABG pH POC ABG pCO2 POC ABG pO2 ABG Hemoglobin ABG Oxyhemoglobin ABG Sodium ABG Potassium ABG Chloride ABG Glucose Carboxyhemoglobin Sodium 147 H Potassium Chloride 111.0 H BUN 104 H Creatinine 2.8 H Glucose 179 H POC Glucose 131 H Calcium Phosphorus Magnesium AST ALT Total Creatine Kinase CK-MB (CK-2) Troponin T Total Protein Albumin HDL Cholesterol TSH Free T3 Index Arterial Blood Glucose Arterial Blood Ionized Calcium Urine pH Urine WBC (Auto) Urine Creatinine Acetaminophen 05/04/21 05/04/21 05/04/21 05:19 11:28 17:02 WBC RBC Hgb Hct MCV RDW Plt Count Lymph % (Auto) Seg Neutrophils % Seg Neuts % (Manual) Lymphocytes % (Manual) Monocytes % (Manual) Seg Neutrophils # Seg Neutrophils # Man Lymphocytes # (Manual) Monocytes # (Manual) ABG pH POC ABG pCO2 POC ABG pO2 ABG Hemoglobin ABG Oxyhemoglobin ABG Sodium ABG Potassium ABG Chloride ABG Glucose Carboxyhemoglobin Sodium Potassium Chloride BUN Creatinine Glucose POC Glucose 168 H 206 H 213 H Calcium Phosphorus Magnesium AST ALT Total Creatine Kinase CK-MB (CK-2) Troponin T Total Protein Albumin HDL Cholesterol TSH Free T3 Index Arterial Blood Glucose Arterial Blood Ionized Calcium Urine pH Urine WBC (Auto) Urine Creatinine Acetaminophen 05/04/21 05/05/21 05/05/21 23:13 04:55 05:15 WBC RBC Hgb Hct MCV RDW Plt Count Lymph % (Auto) Seg Neutrophils % Seg Neuts % (Manual) Lymphocytes % (Manual) Monocytes % (Manual) Seg Neutrophils # Seg Neutrophils # Man Lymphocytes # (Manual) Monocytes # (Manual) ABG pH POC ABG pCO2 POC ABG pO2 ABG Hemoglobin ABG Oxyhemoglobin ABG Sodium ABG Potassium ABG Chloride ABG Glucose Carboxyhemoglobin Sodium Potassium Chloride BUN 91 H Creatinine 2.4 H Glucose 255 H POC Glucose 232 H 235 H Calcium Phosphorus Magnesium AST ALT Total Creatine Kinase CK-MB (CK-2) Troponin T Total Protein Albumin HDL Cholesterol TSH Free T3 Index Arterial Blood Glucose Arterial Blood Ionized Calcium Urine pH Urine WBC (Auto) Urine Creatinine Acetaminophen 05/05/21 05/05/21 05/05/21 11:41 17:46 23:40 WBC RBC Hgb Hct MCV RDW Plt Count Lymph % (Auto) Seg Neutrophils % Seg Neuts % (Manual) Lymphocytes % (Manual) Monocytes % (Manual) Seg Neutrophils # Seg Neutrophils # Man Lymphocytes # (Manual) Monocytes # (Manual) ABG pH POC ABG pCO2 POC ABG pO2 ABG Hemoglobin ABG Oxyhemoglobin ABG Sodium ABG Potassium ABG Chloride ABG Glucose Carboxyhemoglobin Sodium Potassium Chloride BUN Creatinine Glucose POC Glucose 199 H 231 H 224 H Calcium Phosphorus Magnesium AST ALT Total Creatine Kinase CK-MB (CK-2) Troponin T Total Protein Albumin HDL Cholesterol TSH Free T3 Index Arterial Blood Glucose Arterial Blood Ionized Calcium Urine pH Urine WBC (Auto) Urine Creatinine Acetaminophen 05/06/21 05/06/21 05/06/21 04:00 05:37 07:12 WBC RBC Hgb Hct MCV RDW Plt Count Lymph % (Auto) Seg Neutrophils % Seg Neuts % (Manual) Lymphocytes % (Manual) Monocytes % (Manual) Seg Neutrophils # Seg Neutrophils # Man Lymphocytes # (Manual) Monocytes # (Manual) ABG pH 7.464 H POC ABG pCO2 POC ABG pO2 74.2 L ABG Hemoglobin 10.5 L ABG Oxyhemoglobin ABG Sodium ABG Potassium ABG Chloride 110.0 H ABG Glucose 214 H Carboxyhemoglobin 0.4 L Sodium 146 H Potassium Chloride 110.4 H BUN 82 H Creatinine 2.3 H Glucose 154 H POC Glucose 165 H Calcium Phosphorus Magnesium AST ALT Total Creatine Kinase CK-MB (CK-2) Troponin T Total Protein Albumin HDL Cholesterol TSH Free T3 Index Arterial Blood Glucose 214 H Arterial Blood Ionized Calcium Urine pH Urine WBC (Auto) Urine Creatinine Acetaminophen Chest x-ray: other (none today) Allied health notes reviewed: nursing
[2021-05-06] MEDS: LATANOPROST 0.005% OPHTH SOLN 2.5 ML OU SCH (17:12)
--- NOTE | 2021-05-06 19:06 | Progress Note ---
Assessment and Plan 1. Acute kidney injury: Vasomotor ROJELIO. ATN likely. Renal US negative for hydro. Baseline renal function is unknown. Monitor renal function. Non-oliguric. Creatinine level is improving. Renal prognosis is guarded. Avoid nephrotoxic agents. Meds dosage based on GFR. Monitor for NURSING CONSULTANT needs. 2. FEN: Hypokalemia, improved, monitor. Hypernatremia, improved, monitor. Monitor lytes and volume status. 3. Acute hypoxemic respiratory failure: Extubated, re-intubated 04/24. 4. Acute encephalopathy: MRI brain negative. Seen by Neuro. 5. UTI: Pseudomonas and Earline. 6. Hypertension. 7. DM type 2. 8. Mild rhabdomyolysis. 9. Mildly complex R renal cyst. Subjective: Patient was seen and examined at the bedside. Examination: General appearance: well-developed, appears stated age, intubated on vent HEENT: BRUCE, atraumatic Neck: trachea midline Respiratory: Coarse breath sounds heard Heart: S1S2, no murmur Abdomen: soft, obese, bowel sounds heard, NT Integumentary: no obvious rash Neurologic: stuporous Ext: no edema noted Subjective Date of service: 05/06/21 Principal diagnosis: Ac. resp failure; AMS; Hypoglycemia; ROJELIO; Hyperkalemia; DM II Objective - Vital Signs Vital signs: Vital Signs - 12hr 05/06/21 05/06/21 05/06/21 07:32 08:00 09:00 Temperature 98.5 F Pulse Rate 68 73 71 Pulse Rate [ 69 Bilateral] Pulse Rate [ 73 From Monitor] Respiratory 18 24 Rate Respiratory 20 Rate [Bilateral ] Blood Pressure 137/51 137/51 143/81 O2 Sat by Pulse 100 100 98 Oximetry 05/06/21 05/06/21 05/06/21 09:32 09:33 10:00 Temperature Pulse Rate 76 74 73 Pulse Rate [ Bilateral] Pulse Rate [ From Monitor] Respiratory 13 Rate Respiratory Rate [Bilateral ] Blood Pressure 154/78 154/78 154/98 O2 Sat by Pulse 99 Oximetry 05/06/21 05/06/21 05/06/21 11:00 11:45 12:00 Temperature 98.3 F Pulse Rate 74 66 67 Pulse Rate [ Bilateral] Pulse Rate [ 66 From Monitor] Respiratory 20 18 20 Rate Respiratory Rate [Bilateral ] Blood Pressure 148/104 111/59 164/86 O2 Sat by Pulse 99 100 100 Oximetry 05/06/21 05/06/21 05/06/21 13:00 13:10 13:15 Temperature Pulse Rate 67 71 Pulse Rate [ 76 Bilateral] Pulse Rate [ From Monitor] Respiratory 20 Rate Respiratory 24 Rate [Bilateral ] Blood Pressure 111/59 121/89 O2 Sat by Pulse 99 Oximetry 05/06/21 05/06/21 05/06/21 14:00 15:00 15:54 Temperature Pulse Rate 74 75 80 Pulse Rate [ Bilateral] Pulse Rate [ From Monitor] Respiratory 22 22 Rate Respiratory Rate [Bilateral ] Blood Pressure 121/89 139/50 115/56 O2 Sat by Pulse 100 100 98 Oximetry 05/06/21 05/06/21 05/06/21 16:00 17:00 18:00 Temperature 98.2 F Pulse Rate 77 76 89 Pulse Rate [ Bilateral] Pulse Rate [ 78 From Monitor] Respiratory 20 23 26 H Rate Respiratory Rate [Bilateral ] Blood Pressure 139/50 131/55 113/43 O2 Sat by Pulse 99 98 99 Oximetry 05/06/21 19:04 Temperature Pulse Rate 83 Pulse Rate [ Bilateral] Pulse Rate [ From Monitor] Respiratory Rate Respiratory Rate [Bilateral ] Blood Pressure 121/52 O2 Sat by Pulse 99 Oximetry - Lab 05/07/21 08:20 05/07/21 08:20 Most recent lab results ABG pH 7.464 (7.320-7.450) H 05/06/21 04:00 ABG O2 Saturation 94.9 (0-100) 05/06/21 04:00 Calcium 9.8 mg/dL (8.4-10.2) 05/06/21 07:12 Phosphorus 2.60 mg/dL (2.5-4.5) 04/22/21 08:00 Magnesium 2.10 mg/dL (1.7-2.3) 04/23/21 07:02 Urine Creatinine 24.4 mg/dL (0.1-20.0) H 04/16/21 00:12 Urine Sodium 97 mmol/L 04/16/21 00:12 Medications & Allergies - Medications Allergies/Adverse Reactions: Allergies No Known Allergies Allergy (Unverified 04/15/21 17:41) Home Medications: Home Medications Medication Instructions Recorded Confirmed Last Taken Type Betaxolol HCl [Betoptic S 0.25% 1 drop OU BID 04/16/21 04/16/21 Unknown History SUSP] Bimatoprost [Lumigan 0.01%] 1 drop OU QPM 04/16/21 04/16/21 Unknown History Brimonidine Tartrate [Brimonidine 5 ml OU BID 04/16/21 04/16/21 Unknown History Tartrate 0.2%] Furosemide [Lasix TAB] 40 mg PO QDAY 04/16/21 04/16/21 Unknown History Gabapentin [Neurontin] 300 mg PO Q8HR 04/16/21 04/16/21 Unknown History HYDROcodone/APAP 10-325 [[place] 1 each PO Q6HR PRN 04/16/21 04/16/21 Unknown History 10/325] Hydralazine HCl 50 mg PO Q4HR 04/16/21 04/16/21 Unknown History Insulin Aspart Prot/Insuln Asp 52 units SQ HS 04/16/21 04/16/21 Unknown History [Novolog Mix 70-30 Flexpen] Metoprolol [Lopressor] 25 mg PO BID 04/16/21 04/16/21 Unknown History Pravastatin [Pravachol] 20 mg PO QHS 04/16/21 04/16/21 Unknown History Promethazine [Phenergan] 25 mg PO Q6HR 04/16/21 04/16/21 Unknown History allopurinoL [Zyloprim] 150 mg PO QDAY 04/16/21 04/16/21 Unknown History Active Medications: Generic Name Dose Route Start Last Admin Trade Name Freq PRN Reason Stop Dose Admin Acetaminophen 650 mg 04/15/21 19:11 04/30/21 20:14 Acetaminophen 325 Mg Tab PO 650 mg Q6H PRN Administration Pain MILD(1-3)/Fever >100.5/SEXTON Albuterol/Ipratropium 1 ampul 04/24/21 14:00 05/06/21 13:10 Ipratropium/Albuterol Sulfate 3 Ml Ampul.Neb IH 1 ampul Q6HRT WOLFGANG Administration Amlodipine Besylate 10 mg 04/25/21 10:00 05/06/21 09:32 Amlodipine 10 Mg Tab PO 10 mg DAILY WOLFGANG Administration Lipase/Protease/Amylase 1 each 04/16/21 12:52 Lipase 10,500/Protease 25,000/Amylase 43,750 (Units) Dr Simpson FEEDTUBE PRN PRN For Clogged Feeding Tube Aspirin 81 mg 04/25/21 10:00 05/06/21 09:32 Aspirin 81 Mg Tab Chew PO 81 mg QDAY WOLFGANG Administration Bisacodyl 10 mg 04/17/21 11:01 05/03/21 09:50 Bisacodyl 10 Mg Rect Supp VT 10 mg QDAY PRN Administration Constipation Brimonidine Tartrate 1 drops 04/17/21 22:00 05/06/21 09:32 Brimonidine 0.15% Ophth Soln OU 1 drops BID WOLFGANG Administration Docusate Sodium 100 mg 04/29/21 15:00 05/06/21 09:33 Docusate Sodium 100 Mg/10 Ml Oral Liqd PO 100 mg BID WOLFGANG Administration Epinephrine 0.5 ml 04/21/21 12:56 Epinephrine Racemic 2.25% 0.5ml Nebu IH Q4HRT PRN Shortness Of Breath Famotidine 20 mg 04/17/21 10:00 05/06/21 09:33 Famotidine 20 Mg Tab PO 20 mg DAILY WOLFGANG Administration Fentanyl 50 mcg 04/24/21 13:03 Fentanyl 100 Mcg/2 Ml Inj IV Q10MIN PRN ANALGESIA Heparin Sodium (Porcine) 5,000 unit 04/15/21 22:00 05/06/21 09:33 Heparin 5,000 Unit/1 Ml Vial SUB-Q 5,000 unit Q12HR WOLFGANG Administration Hydralazine HCl 10 mg 04/16/21 18:00 04/24/21 05:25 Hydralazine 20 Mg/1 Ml Inj IV 10 mg Q4HR PRN Administration Hypertension Hydralazine HCl 50 mg 05/03/21 14:00 05/06/21 13:15 Hydralazine 25 Mg Tab PO 50 mg Q8HR WOLFGANG Administration Hydrophilic Ointment 1 applic 04/15/21 17:24 Lip Therapy Vaseline TP Q2HR PRN Dry Lips Fentanyl Citrate 2,000 mcg in 100 mls @ 4.765 mls/hr 04/24/21 14:00 04/25/21 09:15 Fentanyl Drip Premix IV 0 mcg/kg/hr TITR WOLFGANG 0 mls/hr Titration Protocol 1 MCG/KG/HR Propofol 1,000 mg in 100 mls @ 2.859 mls/hr 04/24/21 14:00 04/25/21 09:10 Diprivan 10 Mg/Ml IV 0 mcg/kg/min TITR WOLFGANG 0 mls/hr Titration Protocol 5 MCG/KG/MIN Insulin Human Isoph/Insulin Regular 25 unit 05/05/21 17:00 05/06/21 17:11 Insulin Nph/Regular 70/30 Inj SUB-Q 25 unit BIDDIAB WOLFGANG Administration Insulin Human Lispro 0 unit 04/16/21 15:00 05/06/21 17:12 Insulin Lispro 100 Unit/Ml SUB-Q Not Given Q6HR WOLFGANG Protocol Latanoprost 1 drops 04/17/21 18:00 05/06/21 17:12 Latanoprost 0.005% Ophth Soln 2.5 Ml OU 1 drops QPM WOLFGANG Administration Levothyroxine Sodium 25 mcg 04/19/21 06:00 05/06/21 06:50 Levothyroxine 25 Mcg Tab PO 25 mcg DAILY@0600 WOLFGANG Administration Metoprolol Tartrate 25 mg 04/19/21 10:00 05/06/21 09:33 Metoprolol Tartrate 25 Mg Tab PO 25 mg BID WOLFGANG Administration Multi-Ingred Cream/Lotion/Oil/Oint 1 applic 04/15/21 17:24 05/04/21 09:25 Mineral Oil/Petrolatum, White Ophth Oint 3.5 Gm OU 1 applic Q4HR PRN Administration Dry Eye(s) Pravastatin Sodium 20 mg 04/19/21 22:00 05/05/21 21:43 Pravastatin 20 Mg Tab PO 20 mg QHS WOLFGANG Administration Scopolamine 1 each 04/20/21 18:00 05/05/21 09:59 Scopolamine Transdermal Patch 72 Hr TD 1 each Q3D WOLFGANG Administration Simple Syrup 15 ml 04/16/21 12:52 Simple Syrup 15 Ml FEEDTUBE PRN PRN Hypoglycemia Simple Syrup 30 ml 04/16/21 12:52 Simple Syrup 15 Ml FEEDTUBE PRN PRN Hypoglycemia Sodium Bicarbonate 325 mg 04/16/21 12:52 Sodium Bicarbonate 325 Mg Tab FEEDTUBE PRN PRN For Clogged Feeding Tube Sodium Chloride 10 ml 04/15/21 22:00 05/06/21 09:34 Sodium Chloride 0.9% 10 Ml Flush Syringe IV 10 ml BID WOLFGANG Administration Sodium Chloride 10 ml 04/15/21 19:11 04/24/21 05:27 Sodium Chloride 0.9% 10 Ml Flush Syringe IV 10 ml PRN PRN Administration LINE FLUSH Tamsulosin HCl 0.4 mg 04/25/21 14:00 05/06/21 09:33 Tamsulosin 0.4 Mg Cap PO 0.4 mg QDAY WOLFGANG Administration Timolol Maleate 1 drops 04/19/21 10:00 05/06/21 09:34 Timolol 0.5% Ophth Soln 5 Ml OU 1 drops QDAY WOLFGANG Administration
[2021-05-06] MEDS: PRAVASTATIN 20 MG TAB PO SCH (21:28)
[2021-05-07] MEDS: INSULIN LISPRO 100 UNIT/ML SUB-Q SCH ×4 (00:44→21:32)
[2021-05-07] MEDS: IPRATROPIUM/ALBUTEROL SULFATE 3 ML AMPUL.NEB IH SCH ×4 (02:45→20:43)
[2021-05-07] MEDS: hydrALAZINE 25 MG TAB PO SCH ×3 (06:00→21:30)
[2021-05-07] MEDS: LEVOTHYROXINE 25 MCG TAB PO SCH (06:00)
[2021-05-07 08:27] LABS: Hematocrit 24.9 % (30.3-42.9); Hemoglobin 7.9 gm/dl (10.1-14.3); Mean Corpuscular HGB Conc 32 % (30-34); Mean Corpuscular Volume 97 fl (79-97); Platelet Count 324 K/mm3 (140-440); Red Blood Count 2.58 M/mm3 (3.65-5.03); Red Cell Distribution Width 14.9 % (13.2-15.2)
[2021-05-07 08:56] LABS: Calcium 9.8 mg/dL (8.4-10.2)
[2021-05-07] MEDS ORDERED: fentaNYL 100 MCG/2 ML INJ IV PRN (09:00)
--- NOTE | 2021-05-07 09:02 | Progress Note ---
Assessment and Plan 1. Acute kidney injury: Vasomotor ROJELIO. ATN likely. Renal US negative for hydro. Baseline renal function is unknown. Monitor renal function. Non-oliguric. Creatinine leveled off. Renal prognosis is guarded. Follow bladder scan, d/w RN. Avoid nephrotoxic agents. Meds dosage based on GFR. Monitor for FACTORY MAINTENANCE MANAGER needs. 2. FEN: Hypokalemia, improved, monitor. Hypernatremia, improved, monitor. Monitor lytes and volume status. 3. Acute hypoxemic respiratory failure: Extubated, re-intubated 04/24. 4. Acute encephalopathy: MRI brain negative. Seen by Neuro. 5. UTI: Pseudomonas and Earline. 6. Hypertension. 7. DM type 2. 8. Mild rhabdomyolysis. 9. Mildly complex R renal cyst. Subjective: Patient was seen and examined at the bedside. Examination: General appearance: well-developed, appears stated age, intubated on vent HEENT: BRUCE, atraumatic Neck: trachea midline Respiratory: Coarse breath sounds heard Heart: S1S2, no murmur Abdomen: soft, obese, bowel sounds heard, NT Integumentary: no obvious rash Neurologic: stuporous Ext: no edema noted Subjective Date of service: 05/07/21 Principal diagnosis: Ac. resp failure; AMS; Hypoglycemia; ROJELIO; Hyperkalemia; DM II Objective - Vital Signs Vital signs: Vital Signs - 12hr 05/06/21 05/06/21 05/06/21 21:27 22:01 23:01 Temperature Pulse Rate 86 75 71 Pulse Rate [ Bilateral] Pulse Rate [ From Monitor] Respiratory 20 13 Rate Respiratory Rate [Bilateral ] Blood Pressure 159/70 157/55 127/52 O2 Sat by Pulse 100 100 Oximetry 05/06/21 05/06/21 05/07/21 23:38 23:57 00:00 Temperature 98.9 F Pulse Rate 73 74 Pulse Rate [ Bilateral] Pulse Rate [ 79 From Monitor] Respiratory 25 H Rate Respiratory Rate [Bilateral ] Blood Pressure 157/55 O2 Sat by Pulse 99 100 Oximetry 05/07/21 05/07/21 05/07/21 00:01 01:01 02:01 Temperature Pulse Rate 79 80 85 Pulse Rate [ Bilateral] Pulse Rate [ From Monitor] Respiratory 25 H 21 26 H Rate Respiratory Rate [Bilateral ] Blood Pressure 168/76 159/68 159/68 O2 Sat by Pulse 100 99 99 Oximetry 05/07/21 05/07/21 05/07/21 02:46 03:01 03:14 Temperature Pulse Rate 72 85 Pulse Rate [ 86 Bilateral] Pulse Rate [ From Monitor] Respiratory 21 Rate Respiratory 16 Rate [Bilateral ] Blood Pressure 106/46 137/66 O2 Sat by Pulse 100 99 Oximetry 05/07/21 05/07/21 05/07/21 03:38 04:00 05:01 Temperature 99.0 F Pulse Rate 74 72 Pulse Rate [ Bilateral] Pulse Rate [ 68 From Monitor] Respiratory 20 16 Rate Respiratory Rate [Bilateral ] Blood Pressure 96/51 130/54 O2 Sat by Pulse 99 100 Oximetry 05/07/21 05/07/21 05/07/21 06:00 06:01 08:00 Temperature 98 F Pulse Rate 82 87 Pulse Rate [ Bilateral] Pulse Rate [ From Monitor] Respiratory 16 Rate Respiratory Rate [Bilateral ] Blood Pressure 130/54 130/54 O2 Sat by Pulse 99 Oximetry 05/07/21 08:40 Temperature Pulse Rate 69 Pulse Rate [ 77 Bilateral] Pulse Rate [ From Monitor] Respiratory Rate Respiratory 27 H Rate [Bilateral ] Blood Pressure 97/58 O2 Sat by Pulse 100 Oximetry - Lab 05/07/21 08:20 05/07/21 08:20 Most recent lab results ABG pH 7.464 (7.320-7.450) H 05/06/21 04:00 ABG O2 Saturation 94.9 (0-100) 05/06/21 04:00 Calcium 9.8 mg/dL (8.4-10.2) 05/07/21 08:20 Phosphorus 2.60 mg/dL (2.5-4.5) 04/22/21 08:00 Magnesium 2.10 mg/dL (1.7-2.3) 04/23/21 07:02 Urine Creatinine 24.4 mg/dL (0.1-20.0) H 04/16/21 00:12 Urine Sodium 97 mmol/L 04/16/21 00:12 Medications & Allergies - Medications Allergies/Adverse Reactions: Allergies No Known Allergies Allergy (Unverified 04/15/21 17:41) Home Medications: Home Medications Medication Instructions Recorded Confirmed Last Taken Type Betaxolol HCl [Betoptic S 0.25% 1 drop OU BID 04/16/21 04/16/21 Unknown History SUSP] Bimatoprost [Lumigan 0.01%] 1 drop OU QPM 04/16/21 04/16/21 Unknown History Brimonidine Tartrate [Brimonidine 5 ml OU BID 04/16/21 04/16/21 Unknown History Tartrate 0.2%] Furosemide [Lasix TAB] 40 mg PO QDAY 04/16/21 04/16/21 Unknown History Gabapentin [Neurontin] 300 mg PO Q8HR 04/16/21 04/16/21 Unknown History HYDROcodone/APAP 10-325 [[place] 1 each PO Q6HR PRN 04/16/21 04/16/21 Unknown Hi story 10/325] Hydralazine HCl 50 mg PO Q4HR 04/16/21 04/16/21 Unknown History Insulin Aspart Prot/Insuln Asp 52 units SQ HS 04/16/21 04/16/21 Unknown History [Novolog Mix 70-30 Flexpen] Metoprolol [Lopressor] 25 mg PO BID 04/16/21 04/16/21 Unknown History Pravastatin [Pravachol] 20 mg PO QHS 04/16/21 04/16/21 Unknown History Promethazine [Phenergan] 25 mg PO Q6HR 04/16/21 04/16/21 Unknown History allopurinoL [Zyloprim] 150 mg PO QDAY 04/16/21 04/16/21 Unknown History Active Medications: Generic Name Dose Route Start Last Admin Trade Name Freq PRN Reason Stop Dose Admin Acetaminophen 650 mg 04/15/21 19:11 04/30/21 20:14 Acetaminophen 325 Mg Tab PO 650 mg Q6H PRN Administration Pain MILD(1-3)/Fever >100.5/SEXTON Albuterol/Ipratropium 1 ampul 04/24/21 14:00 05/07/21 08:40 Ipratropium/Albuterol Sulfate 3 Ml Ampul.Neb IH 1 ampul Q6HRT WOLFGANG Administration Amlodipine Besylate 10 mg 04/25/21 10:00 05/06/21 09:32 Amlodipine 10 Mg Tab PO 10 mg DAILY WOLFGANG Administration Lipase/Protease/Amylase 1 each 04/16/21 12:52 Lipase 10,500/Protease 25,000/Amylase 43,750 (Units) Dr Simpson FEEDTUBE PRN PRN For Clogged Feeding Tube Aspirin 81 mg 04/25/21 10:00 05/06/21 09:32 Aspirin 81 Mg Tab Chew PO 81 mg QDAY WOLFGANG Administration Bisacodyl 10 mg 04/17/21 11:01 05/03/21 09:50 Bisacodyl 10 Mg Rect Supp IN 10 mg QDAY PRN Administration Constipation Brimonidine Tartrate 1 drops 04/17/21 22:00 05/06/21 21:28 Brimonidine 0.15% Ophth Soln OU 1 drops BID WOLFGANG Administration Docusate Sodium 100 mg 04/29/21 15:00 05/06/21 21:28 Docusate Sodium 100 Mg/10 Ml Oral Liqd PO 100 mg BID WOLFGANG Administration Epinephrine 0.5 ml 04/21/21 12:56 Epinephrine Racemic 2.25% 0.5ml Nebu IH Q4HRT PRN Shortness Of Breath Famotidine 20 mg 04/17/21 10:00 05/06/21 09:33 Famotidine 20 Mg Tab PO 20 mg DAILY WOLFGANG Administration Fentanyl 50 mcg 05/07/21 09:00 Fentanyl 100 Mcg/2 Ml Inj IV Q4H PRN Pain , Severe (7-10) Heparin Sodium (Porcine) 5,000 unit 04/15/21 22:00 05/06/21 21:29 Heparin 5,000 Unit/1 Ml Vial SUB-Q 5,000 unit Q12HR WOLFGANG Administration Hydralazine HCl 10 mg 04/16/21 18:00 04/24/21 05:25 Hydralazine 20 Mg/1 Ml Inj IV 10 mg Q4HR PRN Administration Hypertension Hydralazine HCl 50 mg 05/03/21 14:00 05/07/21 06:00 Hydralazine 25 Mg Tab PO 50 mg Q8HR WOLFGANG Administration Hydrophilic Ointment 1 applic 04/15/21 17:24 Lip Therapy Vaseline TP Q2HR PRN Dry Lips Insulin Human Isoph/Insulin Regular 25 unit 05/09/21 08:00 Insulin Nph/Regular 70/30 Inj SUB-Q BIDDIAB WOLFGANG Insulin Human Lispro 0 unit 04/16/21 15:00 05/07/21 06:01 Insulin Lispro 100 Unit/Ml SUB-Q 3 unit Q6HR WOLFGANG Administration Protocol Latanoprost 1 drops 04/17/21 18:00 05/06/21 17:12 Latanoprost 0.005% Ophth Soln 2.5 Ml OU 1 drops QPM WOLFGANG Administration Levothyroxine Sodium 25 mcg 04/19/21 06:00 05/07/21 06:00 Levothyroxine 25 Mcg Tab PO 25 mcg DAILY@0600 WOLFGANG Administration Metoprolol Tartrate 25 mg 04/19/21 10:00 05/06/21 21:27 Metoprolol Tartrate 25 Mg Tab PO 25 mg BID WOLFGANG Administration Multi-Ingred Cream/Lotion/Oil/Oint 1 applic 04/15/21 17:24 05/04/21 09:25 Mineral Oil/Petrolatum, White Ophth Oint 3.5 Gm OU 1 applic Q4HR PRN Administration Dry Eye(s) Pravastatin Sodium 20 mg 04/19/21 22:00 05/06/21 21:28 Pravastatin 20 Mg Tab PO 20 mg QHS WOLFGANG Administration Scopolamine 1 each 04/20/21 18:00 05/05/21 09:59 Scopolamine Transdermal Patch 72 Hr TD 1 each Q3D WOLFGANG Administration Simple Syrup 15 ml 04/16/21 12:52 Simple Syrup 15 Ml FEEDTUBE PRN PRN Hypoglycemia Simple Syrup 30 ml 04/16/21 12:52 Simple Syrup 15 Ml FEEDTUBE PRN PRN Hypoglycemia Sodium Bicarbonate 325 mg 04/16/21 12:52 Sodium Bicarbonate 325 Mg Tab FEEDTUBE PRN PRN For Clogged Feeding Tube Sodium Chloride 10 ml 04/15/21 22:00 05/06/21 21:28 Sodium Chloride 0.9% 10 Ml Flush Syringe IV 10 ml BID WOLFGANG Administration Sodium Chloride 10 ml 04/15/21 19:11 04/24/21 05:27 Sodium Chloride 0.9% 10 Ml Flush Syringe IV 10 ml PRN PRN Administration LINE FLUSH Tamsulosin HCl 0.4 mg 04/25/21 14:00 05/06/21 09:33 Tamsulosin 0.4 Mg Cap PO 0.4 mg QDAY WOLFGANG Administration Timolol Maleate 1 drops 04/19/21 10:00 05/06/21 09:34 Timolol 0.5% Ophth Soln 5 Ml OU 1 drops QDAY WOLFGANG Administration
[2021-05-07 09:12] LABS: INR 1.11 (0.87-1.13)
[2021-05-07] MEDS: METOPROLOL TARTRATE 25 MG TAB PO SCH ×2 (09:37→21:31)
[2021-05-07] MEDS: amLODIPine 10 MG TAB PO SCH (09:37)
[2021-05-07] MEDS: ASPIRIN 81 MG TAB CHEW PO SCH (09:37)
[2021-05-07] MEDS: DOCUSATE SODIUM 100 MG/10 ML ORAL LIQD PO SCH ×2 (09:37→21:30)
[2021-05-07] MEDS: TAMSULOSIN 0.4 MG CAP PO SCH (09:37)
[2021-05-07] MEDS: FAMOTIDINE 20 MG TAB PO SCH (09:38)
[2021-05-07] MEDS: HEPARIN 5,000 UNIT/1 ML VIAL SUB-Q SCH ×2 (09:42→21:58)
--- NOTE | 2021-05-07 09:45 | Progress Note ---
Assessment and Plan Assessment and plan: This is a 80-year-old female with HTN, DM, WI, breast CA s/p double mastectomy, TIA who presented with hypoglycemia, AMS who was admitted with SIRS, symptomatic bradycardia, acute metabolic encephalopathy, acute hypoxic respiratory failure, elevated TSH, hyperglycemia, hyponatremia, hypokalemia, ROJELIO and rhabdomyolysis Acute metabolic encephalopathy-persist Acute hypoxic respiratory failure (extubated 04/20)- Re-intubated secondary to Stridor and paradoxical breathing First-degree heart block Resolved ileus versus mechanical obstruction Acute kidney injury with vasomotor nephropathy UTI, Pseudomonas/ Earline Elevated TSH Mild rhabdomyolysis Hypertension Diabetes mellitus with hyperglycemia on admission CAD Hypothyroidism Chronic illness debilitymyopathy Obesity -CCM, nephrology, neurology, cardiology consulted, patient recommendations -S/p D10 and D5W gtt, on TF -S/p IV calcium gluconate, regular insulin, D50 -S/p transcutaneous pacing, intermittent demand pacer in place -Renal ultrasound findings consistent with acute on chronic kidney disease, mildly complex right renal cyst -Blood pressure monitoring per protocol -Accu-Cheks every 6, SSI, long acting insulin -IV hydralazine as needed -04/25 EEG is mildly abnormal with mild slowing noted throughout the recording, suggestive of mild cortical dysfunction and/or drug effect -04/20 EEG shows mildly abnormal record due to diffuse background slowing noted throughout the recording, intermittent motion artifact, patient intubated and se dated at time of study, no sign of seizures as well epilepticus noted, possible toxic metabolic encephalopathy, drug effect, possible postictal state cannot be totally excluded. -Avoid ACEi/ARB in setting of ROJELIO -Avoid AV arron blocking agents -Avoid nephrotoxic agents and renally dose medications -BB, add home antihtn regimen as needed -TSH 14.1, T4 4.1, T3 1.1-started on levothyroxine -As needed racemic epinephrine -S/p steroids -s/p Antibiotic therapy -Trend CBC, BMP DVT/GI prophylaxis: Heparin subcu, PPI, SCDs to bilateral lower extremities while in bed Disposition: ICU The high probability of a clinically significant, sudden or life threatening deterioration of the [PULMONARY, CARDIAC, RENAL] system(s) required my full and direct attention, intervention and personal management. The aggregate critical care time was [35] minutes. This time is in addition to time spent performing r eported procedures but includes the following: [X] Data Review and interpretation [X] Patient assessment and monitoring of vital signs [X] Documentation [X] Medication orders and management History Interval history: This is a 80-year-old female with hypertension, diabetes mellitus, WI, breast cancer s/p double mastectomy, and a TIA who presented with hypoglycemia and altered mental status on 04/15 via EMS. Per EMS patient was unresponsive on their arrival and her blood glucose was 38 and she received 1 amp of dextrose patient continued to be unresponsive and only moaned with her eyes deviating to the left. Work-up in the emergency department revealed SIRS, symptomatic bradycardia, acute metabolic encephalopathy, acute hypoxic respiratory failure, elevated TSH, hyperglycemia, hyponatremia, hyperkalemia, acute kidney injury with ATN, and rhabdomyolysis 04/16: Neurology consulted, COVID-19 PCR negative, D10 drip decreased and eventually discontinued by [facility] and started on D5W for 1 L. Hydralazine as needed. Patient had hyper kalemia today and was treated with D50, insulin and Kayexalate. This time examination patient is on assist control tidal volume 450, rate of 16, PEEP of 6 and 25% FiO2. 04/17: Patient started on low-dose beta-angel per cardiology, CPAP trial again per [facility], BUN/creatinine holding steady and hypochloremia/hyponatremia slightly improved and hypokalemia has resolved. This morning a KUB was obtained which wa s concerning for ileus versus mechanical obstruction and surgery was consulted. Patient was made n.p.o. and NG tube placed to wall suction. Patient was given suppository. Per RN patient did not have a BM even though she was given Kayexalate yesterday. Will obtain a KUB in the a.m. Neurology was consulted yesterday and will await further recommendations. Nephew updated at bedside today, Carlos Romero. 04/18: Neurology has ordered EEG/MRI B, [facility] continues to wean MV. Persistent low grade temperature so we will obtain BCx2/UA. Patient has improving leukocytosis, hyponatremia, renal function studies and hypochloremia. She has hypokalemia today which is being repleted. Surgery has signed off today and has okayed resumption of TF. [facility] will trial CPAP for longer today and plans to attempt extubation in AM. Family has requested transfer to [facility] and Dr. Gordon will attempt to contact transfer center. I updated her nephew, Carlos Romero over the phone today abouyt current events and update on transfer ([facility] will conduct a utilization review) 04/19: This morning patient is on CPAP trial at the time of examination, noted to be hypertensive and metoprolol increased to home dose, started on synthroid by CCM, lantus started re hyperglycemia, MRI completed with no acute findings. Sev ere hypokalemia (repleted and Mg pending). CCM will contact CPAP trial again today with possible trial extubation tomorrow. 04/20: Patient's leukocytosis and kidney function tests continue to improve. Patient is hypertensive overnight we will restart home hydralazine. [facility] plans to extubate patient today. Family is attempting to transfer to another facility. EEG pending, RT will atmept to contact ophthalmic technician. Urine culture grew gram negative rods. Increase in lantus 04/21: Increase in Lantus, repleted phos. Patient has started this afternoon and was given racemic epinephrine and started on steroids. Patient will have BiPAP as needed. We will recheck BMP in the a.m. renal function studies continues to decrease. Patient has been hypertensive on evaluation regimen has been changed. 04/22: Lantus increased for hyperglycemia and add amlodipine for better BP control. Patient is on steroids. OT suctioned by RN with catheter in oral care kit and received copious amounts of secretions. Cr continues to decrease. Culture grew Pseudomonas and was changed in accordance to sensitivity. Cirilo estrada emoved today after clearance from nephrology. 04/23: MRI of the brain was done and unremarkable. Will obtain reconsult to nephrology for further assistance as patient remains in profound encephalopathy despite improvement of blood sugar. Will repeat chest x-ray as patient does have significant congestion physical exam. Tube feeds still ongoing. Continue aspiration precautions. Continue antibiotics when completed for Pseudomonas management 04/24: Neurology input noted, patient unfortunately with no improvement mental status milton, continues with congestion, will defer with Hair Blender for lasix in the setting of renal failure. will give kayexlate for hyperkalemia, still moans and groans, mittens in place. 04/25: Patient currently intubated, on restraints for safety, Profund encephal opathy persist, although awake she is not following any commands, Call placed to [facility] to see if they will accept transfer for ENT evaluation, while CT neck was negative, it was degraded by motion and unable to determent why patient had this stridor, Racemic Epinephrine was given, [facility] is on ICU saturation, but will call back with an ENT to discuss case. Renal function mildly worse, continue to monitor. Per cardiology, no further arrhythmias noted since admission. Given short duration of atrial fibrillation, along with pt's age, renal fxn, and other co- morbidities,...will resume additional medical therapies for underlying severe multi-vessel CAD (bASA & Plavix). Pt has previously declined intervention of known lesions as per her Primary Inside Sales Executive. 04/26: Now with febrile illness, ?developing infection, start on empiric abx, check lactate level, blood cultures, continue management per Vice Chairman, Monitor leukocytosis, agree with Trach, family updated about denials in transfer request from outside hospitals. 04/27: WBC improving some, still with fever despite antibotics, ID consulted. CXR clear, continue current management, Trach will be planned if ok with family. Blood sugar remains elevated, will adjust insulin LANTUS to 40 units. Patient had previously completed Cefepime. Mental status remains unchanged, still moves upper ext. continue restraints 04/28: Continue supportive care. No new fever noted. Critical care physician will determine if patient should be have a trial of extubation again or if we should proceed straight to trach. Again continue to monitor mental status for complete improvement. 04/29: Per Vice Chairman discussion with family, will proceed to Tracheostomy, Patients mental status still fluctuating, Continue current management. Surgeon consulted. 04/30: General surgery consulted for trach, continue to trend CBC and BMP. Kidney function slightly worsened today. Increase in Lantus. Tmax 100.2, per ID will consider imaging if leukocytosis remains elevated with fevers. Plavix held for possible tracheostomy next week. 05/01: Patient fever curve is trending down with improving leukocytosis. Patient renal function worsened today. She remains hyperglycemic and her Lantus was increased to her home dose of Novolin 70/30. Patient was rate controlled yesterday due to T-max of 101. She remains on CMV tidal volume 450, rate of 10, PEEP of 6 and 30% FiO2. We will increase the water flushes given slight hypernatremia. Dr. Andrea updated nephew (Carlos) at bedside. CPAP trails. 05/02: Patient's hypernatremia and hyperchloremia slightly worsened and femur fractures were increased. Kidney functions remain the same however BUN is in the 100s. Nephrology is following. Kerr catheter was removed. Awaiting trach placement with possibility on Friday. 05/03: Patient grew Earline in her urine culture however per ID and the Kerr was already exchanged. Patient is on cefepime and Flagyl. Plavix still on hold awaiting trach. CCM started the patient on half-normal saline at 75 mL/h for 2 L related to azatoma and hypernatremia. Patient mental status continues to wax and wane. Creatinine is 3.1 today from 3.4 yesterday. Patient had a bowel movement today. Patient remains hyperglycemic and Lantus was changed from a.m. to p.m.. 05/04: Patient's renal function is improving, surgery obtain consent for trach/PEG scheduled for 05/07, antibiotics to end tomorrow. We will obtain BMP in the a.m. Lantus dosage change from AC to at bedtime in hopes of better glycemic control. 05/05: Patient Lantus dose is changed to twice daily in hopes of better glycemic control. Awaiting surgical procedure hopefully on Friday. Patient's BUN/cre atinine improved and hypernatremia has resolved. 05/06: Patient has slight hypernatremia and hyperchloremia and improvement to BUN/creatinine. Better glycemic control. Awaiting trach on Friday. NGT was displaced but now replaced and TF resumed. 05/07 This is a 80-year-old female with HTN, DM, WI, breast CA s/p double mastectomy, TIA who presented with hypoglycemia, AMS who was admitted with SIRS, symptomatic bradycardia, acute metabolic encephalopathy, acute hypoxic respiratory failure, elevated TSH, hyperglycemia, hyponatremia, hypokalemia, ROJELIO and rhabdomyolysis. She is for Trach and PEG today. History Interval history: This is a 80-year-old female with HTN, DM, WI, breast CA s/p double mastectomy, TIA who presented with hypoglycemia, AMS who was admitted with SIRS, symptomatic bradycardia, acute metabolic encephalopathy, acute hypoxic respiratory failure, elevated TSH, hyperglycemia, hyponatremia, hypokalemia, ROJELIO and rhabdomyolysis. Acute hypoxic respiratory failure (extubated 04/20)- Re-intubated secondary to Stridor and paradoxical breathing. Still intubated She is for Trach and PEG today Hospitalist Physical - Physical exam Narrative exam: General appearance: Present: no acute distress, intubated on mechanical ventilation - EENT Eyes: Present: PERRL, EOM intact - Neck Neck: Present: normal ROM - Respiratory Respiratory effort: normal Respiratory: bilateral: diminished - Cardiovascular Rhythm: regular Heart Sounds: Present: S1 & S2. Absent: systolic murmur, diastolic murmur - Extremities Extremities: no ischemia, pulses intact, pulses symmetrical, normal temperature, normal color Peripheral Pulses: within normal limits - Abdominal General gastrointestinal: soft, non-tender, non-distended, normal bowel sounds - Integumentary Integumentary: Present: warm, dry - Psychiatric Psychiatric: cooperative - Neurologic Neurologic: moves all extremities - Allied Health All - Constitutional Vitals: Temp Pulse Resp BP Pulse Ox 98 F 69 15 106/73 100 05/07/21 08:00 05/07/21 09:01 05/07/21 09:01 05/07/21 09:01 05/07/21 09:01 General appearance: Present: no acute distress, other (intubated, on mechanical ventilation) HEART Score - HEART Score Troponin: Troponin T 0.065 ng/mL (0.00-0.029) H 04/20/21 03:32 Results - Labs CBC & Chem 7: 05/07/21 08:20 05/07/21 08:20 Labs: Laboratory Last Values WBC 9.8 K/mm3 (4.5-11.0) 05/07/21 08:20 RBC 2.58 M/mm3 (3.65-5.03) L 05/07/21 08:20 Hgb 7.9 gm/dl (10.1-14.3) L 05/07/21 08:20 Hct 24.9 % (30.3-42.9) L 05/07/21 08:20 MCV 97 fl (79-97) 05/07/21 08:20 MCH 31 pg (28-32) 05/07/21 08:20 MCHC 32 % (30-34) 05/07/21 08:20 RDW 14.9 % (13.2-15.2) 05/07/21 08:20 Plt Count 324 K/mm3 (140-440) 05/07/21 08:20 Lymph % (Auto) 12.8 % (13.4-35.0) L 04/15/21 17:20 Mayes % (Auto) 4.1 % (0.0-7.3) 04/15/21 17:20 Eos % (Auto) 0.3 % (0.0-4.3) 04/15/21 17:20 Baso % (Auto) 0.4 % (0.0-1.8) 04/15/21 17:20 Lymph # (Auto) 1.4 K/mm3 (1.2-5.4) 04/15/21 17:20 Mayes # (Auto) 0.5 K/mm3 (0.0-0.8) 04/15/21 17:20 Eos # (Auto) 0.0 K/mm3 (0.0-0.4) 04/15/21 17:20 Baso # (Auto) 0.0 K/mm3 (0.0-0.1) 04/15/21 17:20 Add Manual Diff Complete 05/01/21 07:11 Total Counted 100 05/01/21 07:11 Seg Neutrophils % 82.4 % (40.0-70.0) H 04/15/21 17:20 Seg Neuts % (Manual) 80.0 % (40.0-70.0) H 05/01/21 07:11 Band Neutrophils % 7.0 % 05/01/21 07:11 Lymphocytes % (Manual) 5.0 % (13.4-35.0) L 05/01/21 07:11 Monocytes % (Manual) 6.0 % (0.0-7.3) 05/01/21 07:11 Eosinophils % (Manual) 1.0 % (0.0-4.3) 05/01/21 07:11 Metamyelocytes % 1.0 % 05/01/21 07:11 Nucleated RBC % Not Reportable 05/01/21 07:11 Seg Neutrophils # 9.3 K/mm3 (1.8-7.7) H 04/15/21 17:20 Seg Neutrophils # Man 9.8 K/mm3 (1.8-7.7) H 05/01/21 07:11 Band Neutrophils # 0.9 K/mm3 05/01/21 07:11 Lymphocytes # (Manual) 0.6 K/mm3 (1.2-5.4) L 05/01/21 07:11 Abs React Lymphs (Man) 0.0 K/mm3 05/01/21 07:11 Monocytes # (Manual) 0.7 K/mm3 (0.0-0.8) 05/01/21 07:11 Eosinophils # (Manual) 0.1 K/mm3 (0.0-0.4) 05/01/21 07:11 Basophils # (Manual) 0.0 K/mm3 (0.0-0.1) 05/01/21 07:11 Metamyelocytes # 0.1 K/mm3 05/01/21 07:11 Myelocytes # 0.0 K/mm3 05/01/21 07:11 Promyelocytes # 0.0 K/mm3 05/01/21 07:11 Blast Cells # 0.0 K/mm3 05/01/21 07:11 WBC Morphology Not Reportable 05/01/21 07:11 Hypersegmented Neuts Not Reportable 05/01/21 07:11 Hyposegmented Neuts Not Reportable 05/01/21 07:11 Hypogranular Neuts Not Reportable 05/01/21 07:11 Smudge Cells Not Reportable 05/01/21 07:11 Toxic Granulation Not Reportable 05/01/21 07:11 Toxic Vacuolation Not Reportable 05/01/21 07:11 Dohle Bodies Not Reportable 05/01/21 07:11 Pelger-Huet Anomaly Not Reportable 05/01/21 07:11 Peterson Rods Not Reportable 05/01/21 07:11 Platelet Estimate Consistent w auto 05/01/21 07:11 Clumped Platelets Not Reportable 05/01/21 07:11 Plt Clumps, EDTA Not Reportable 05/01/21 07:11 Large Platelets Not Reportable 05/01/21 07:11 Giant Platelets Not Reportable 05/01/21 07:11 Platelet Satelliting Not Reportable 05/01/21 07:11 Plt Morphology Comment Not Reportable 05/01/21 07:11 RBC Morphology Normal 05/01/21 07:11 Dimorphic RBCs Not Reportable 05/01/21 07:11 Polychromasia Not Reportable 05/01/21 07:11 Hypochromasia Not Reportable 05/01/21 07:11 Poikilocytosis Not Reportable 05/01/21 07:11 Anisocytosis Not Reportable 05/01/21 07:11 Microcytosis Not Reportable 05/01/21 07:11 Macrocytosis Not Reportable 05/01/21 07:11 Spherocytes Not Reportable 05/01/21 07:11 Pappenheimer Bodies Not Reportable 05/01/21 07:11 Sickle Cells Not Reportable 05/01/21 07:11 Target Cells Not Reportable 05/01/21 07:11 Tear Drop Cells Not Reportable 05/01/21 07:11 Ovalocytes Not Reportable 05/01/21 07:11 Helmet Cells Not Reportable 05/01/21 07:11 Law-Capitan Bodies Not Reportable 05/01/21 07:11 Hudson Rings Not Reportable 05/01/21 07:11 Theo Cells Not Reportable 05/01/21 07:11 Bite Cells Not Reportable 05/01/21 07:11 Crenated Cell Not Reportable 05/01/21 07:11 Elliptocytes Not Reportable 05/01/21 07:11 Acanthocytes (Spur) Not Reportable 05/01/21 07:11 Rouleaux Not Reportable 05/01/21 07:11 Hemoglobin C Crystals Not Reportable 05/01/21 07:11 Schistocytes Not Reportable 05/01/21 07:11 Malaria parasites Not Reportable 05/01/21 07:11 James Bodies Not Reportable 05/01/21 07:11 Hem Pathologist Commnt No 05/01/21 07:11 PT 14.8 Sec. (12.2-14.9) 05/07/21 08:20 INR 1.11 (0.87-1.13) 05/07/21 08:20 APTT 31.8 Sec. (24.2-36.6) 04/15/21 17:20 ABG pH 7.464 (7.320-7.450) H 05/06/21 04:00 POC ABG pCO2 33.2 mmHg (32.0-48.0) 05/06/21 04:00 POC ABG pO2 74.2 mmHg (83-108) L 05/06/21 04:00 POC ABG HCO3 23.3 05/06/21 04:00 ABG O2 Saturation 94.9 (0-100) 05/06/21 04:00 POC ABG Base Excess 0 05/06/21 04:00 ABG Hemoglobin 10.5 (12.0-17.5) L 05/06/21 04:00 ABG Oxyhemoglobin 94.2 (94-98) 05/06/21 04:00 ABG Methemoglobin 0.3 (0.0-1.5) 05/06/21 04:00 ABG Sodium 142.7 mmol/L (136.0-145.0) 05/06/21 04:00 ABG Potassium 4.3 mmol/L (3.40-4.50) 05/06/21 04:00 ABG Chloride 110.0 mmol/L (98-107) H 05/06/21 04:00 ABG Glucose 214 mg/dL (65-95) H 05/06/21 04:00 Carboxyhemoglobin 0.4 (0.5-1.5) L 05/06/21 04:00 FiO2 % 30.0 05/06/21 04:00 Sodium 144 mmol/L (137-145) 05/07/21 08:20 Potassium 4.6 mmol/L (3.6-5.0) 05/07/21 08:20 Chloride 108.4 mmol/L (98-107) H 05/07/21 08:20 Carbon Dioxide 25 mmol/L (22-30) 05/07/21 08:20 Anion Gap 15 mmol/L 05/07/21 08:20 BUN 81 mg/dL (7-17) H 05/07/21 08:20 Creatinine 2.4 mg/dL (0.6-1.2) H 05/07/21 08:20 Estimated GFR 23 ml/min 05/07/21 08:20 BUN/Creatinine Ratio 34 % 05/07/21 08:20 Glucose 133 mg/dL (65-100) H 05/07/21 08:20 POC Glucose 156 mg/dL (70-105) H 05/07/21 05:26 Lactic Acid 1.10 mmol/L (0.7-2.0) 04/26/21 09:30 Calcium 9.8 mg/dL (8.4-10.2) 05/07/21 08:20 Phosphorus 2.60 mg/dL (2.5-4.5) 04/22/21 08:00 Magnesium 2.10 mg/dL (1.7-2.3) 04/23/21 07:02 Total Bilirubin 0.30 mg/dL (0.1-1.2) 04/28/21 04:13 Direct Bilirubin < 0.2 mg/dL (0-0.2) 04/28/21 04:13 Indirect Bilirubin 0.1 mg/dL 04/28/21 04:13 AST 61 units/L (5-40) H 04/28/21 04:13 ALT 64 units/L (7-56) H 04/28/21 04:13 Alkaline Phosphatase 95 units/L (35-129) 04/28/21 04:13 Ammonia 46.0 umol/L (25-60) 04/15/21 17:20 Total Creatine Kinase 427 units/L (30-135) H 04/18/21 05:34 CK-MB (CK-2) 9.1 ng/mL (0.0-4.0) H 04/17/21 15:35 CK-MB (CK-2) Rel Index 1.4 (0-4) 04/17/21 15:35 Troponin T 0.065 ng/mL (0.00-0.029) H 04/20/21 03:32 NT-Pro-B Natriuret Pep 697.9 pg/mL (0-900) 04/15/21 17:20 Total Protein 6.2 g/dL (6.3-8.2) L 04/28/21 04:13 Albumin 2.6 g/dL (3.9-5) L 04/28/21 04:13 Albumin/Globulin Ratio 0.7 % 04/28/21 04:13 Triglycerides 103 mg/dL (2-149) 04/17/21 05:04 Cholesterol 122 mg/dL (50-199) 04/17/21 05:04 LDL Cholesterol Direct 55 mg/dL (50-130) 04/17/21 05:04 HDL Cholesterol 61 mg/dL (40-59) H 04/17/21 05:04 Cholesterol/HDL Ratio 2.00 % 04/17/21 05:04 Procalcitonin 0.20 ng/mL (<0.15) 04/16/21 19:01 TSH 14.190 mlU/mL (0.270-4.200) H 04/15/21 17:20 Thyroxine (T4) 4.1 ug/dL (4.0-12.0) 04/16/21 19:01 Free T3 Index 1.1 pg/mL (2.3-4.2) L 04/16/21 19:01 Arterial Blood Glucose 214 mg/dL (65-95) H 05/06/21 04:00 Arterial Blood Ionized Calcium 5.0 mg/dL (4.6-5.3) 05/06/21 04:00 Urine Color Yellow (Yellow) 04/30/21 17:45 Urine Turbidity Cloudy (Clear) 04/30/21 17:45 Urine pH 5.0 (5.0-7.0) 04/30/21 17:45 Ur Specific Castella 1.016 (1.003-1.030) 04/30/21 17:45 Urine Protein 100 mg/dl mg/dL (Negative) 04/30/21 17:45 Urine Glucose (UA) Neg mg/dL (Negative) 04/30/21 17:45 Urine Ketones Neg mg/dL (Negative) 04/30/21 17:45 Urine Blood Mod (Negative) 04/30/21 17:45 Urine Nitrite Neg (Negative) 04/30/21 17:45 Urine Bilirubin Neg (Negative) 04/30/21 17:45 Urine Urobilinogen < 2.0 mg/dL (<2.0) 04/30/21 17:45 Ur Leukocyte Esterase Mod (Negative) 04/30/21 17:45 Urine WBC (Auto) 48.0 /HPF (0.0-6.0) H 04/30/21 17:45 Urine RBC (Auto) 103.0 /HPF (0.0-6.0) 04/30/21 17:45 U Epithel Cells (Auto) < 1.0 /HPF (0-13.0) 04/16/21 00:09 Urine Bacteria (Auto) 1+ /HPF (Negative) 04/16/21 00:09 Urine Mucus Few /HPF 04/30/21 17:45 Urine Yeast (Budding) 3+ /HPF 04/30/21 17:45 Urine Creatinine 24.4 mg/dL (0.1-20.0) H 04/16/21 00:12 Urine Sodium 97 mmol/L 04/16/21 00:12 Random Vancomycin 15.5 ug/mL (0-40.0) 04/27/21 07:52 Salicylates 4.1 mg/dL (2.8-20.0) 04/15/21 17:20 Acetaminophen 5.0 ug/mL (10.0-30.0) L 04/15/21 17:20 Plasma/Serum Alcohol 0.02 % (0-0.07) 04/15/21 17:20 Coronavirus (PCR) Negative (Negative) 04/16/21 Unknown Kerr/IV: Voiding Method External Female Catheter Active Medications - Current Medications Current Medications: Generic Name Dose Route Start Last Admin Trade Name Freq PRN Reason Stop Dose Admin Acetaminophen 650 mg 04/15/21 19:11 04/30/21 20:14 Acetaminophen 325 Mg Tab PO 650 mg Q6H PRN Administration Pain MILD(1-3)/Fever >100.5/SEXTON Albuterol/Ipratropium 1 ampul 04/24/21 14:00 05/07/21 08:40 Ipratropium/Albuterol Sulfate 3 Ml Ampul.Neb IH 1 ampul Q6HRT WOLFGANG Administration Amlodipine Besylate 10 mg 04/25/21 10:00 05/07/21 09:37 Amlodipine 10 Mg Tab PO Not Given DAILY [facility]FGANG Lipase/Protease/Amylase 1 each 04/16/21 12:52 Lipase 10,500/Protease 25,000/Amylase 43,750 (Units) Dr Calvin PURDYTUBE PRN PRN For Clogged Feeding Tube Aspirin 81 mg 04/25/21 10:00 05/07/21 09:37 Aspirin 81 Mg Tab Chew PO Not Given QDAY WOLFGANG Bisacodyl 10 mg 04/17/21 11:01 05/03/21 09:50 Bisacodyl 10 Mg Rect Supp OH 10 mg QDAY PRN Administration Constipation Brimonidine Tartrate 1 drops 04/17/21 22:00 05/06/21 21:28 Brimonidine 0.15% Ophth Soln OU 1 drops BID WOLFGANG Administration Docusate Sodium 100 mg 04/29/21 15:00 05/07/21 09:37 Docusate Sodium 100 Mg/10 Ml Oral Liqd PO Not Given BID [facility]ANG Epinephrine 0.5 ml 04/21/21 12:56 Epinephrine Racemic 2.25% 0.5ml Nebu IH Q4HRT PRN Shortness Of Breath Famotidine 20 mg 04/17/21 10:00 05/07/21 09:38 Famotidine 20 Mg Tab PO Not Given DAILY [facility] Fentanyl 50 mcg 05/07/21 09:00 Fentanyl 100 Mcg/2 Ml Inj IV Q4H PRN Pain , Severe (7-10) Heparin Sodium (Porcine) 5,000 unit 04/15/21 22:00 05/07/21 09:42 Heparin 5,000 Unit/1 Ml Vial SUB-Q Not Given Q12HR [facility] Hydralazine HCl 10 mg 04/16/21 18:00 04/24/21 05:25 Hydralazine 20 Mg/1 Ml Inj IV 10 mg Q4HR PRN Administration Hypertension Hydralazine HCl 50 mg 05/03/21 14:00 05/07/21 06:00 Hydralazine 25 Mg Tab PO 50 mg Q8HR [facility] Administration Hydrophilic Ointment 1 applic 04/15/21 17:24 Lip Therapy Vaseline TP Q2HR PRN Dry Lips Insulin Human Isoph/Insulin Regular 25 unit 05/09/21 08:00 Insulin Nph/Regular 70/30 Inj SUB-Q BIDDIAB [facility] Insulin Human Lispro 0 unit 04/16/21 15:00 05/07/21 06:01 Insulin Lispro 100 Unit/Ml SUB-Q 3 unit Q6HR [facility] Administration Protocol Latanoprost 1 drops 04/17/21 18:00 05/06/21 17:12 Latanoprost 0.005% Ophth Soln 2.5 Ml OU 1 drops QPM [facility]OLFGANG Administration Levothyroxine Sodium 25 mcg 04/19/21 06:00 05/07/21 06:00 Levothyroxine 25 Mcg Tab PO 25 mcg DAILY@0600 [facility] Administration Metoprolol Tartrate 25 mg 04/19/21 10:00 05/07/21 09:37 Metoprolol Tartrate 25 Mg Tab PO Not Given BID [facility] Multi-Ingred Cream/Lotion/Oil/Oint 1 applic 04/15/21 17:24 05/04/21 09:25 Mineral Oil/Petrolatum, White Ophth Oint 3.5 Gm OU 1 applic Q4HR PRN Administration Dry Eye(s) Pravastatin Sodium 20 mg 04/19/21 22:00 05/06/21 21:28 Pravastatin 20 Mg Tab PO 20 mg QHS WOLFGANG Administration Scopolamine 1 each 04/20/21 18:00 05/05/21 09:59 Scopolamine Transdermal Patch 72 Hr TD 1 each Q3D [facility] Administration Simple Syrup 15 ml 04/16/21 12:52 Simple Syrup 15 Ml FEEDTUBE PRN PRN Hypoglycemia Simple Syrup 30 ml 04/16/21 12:52 Simple Syrup 15 Ml FEEDTUBE PRN PRN Hypoglycemia Sodium Bicarbonate 325 mg 04/16/21 12:52 Sodium Bicarbonate 325 Mg Tab FEEDTUBE PRN PRN For Clogged Feeding Tube Sodium Chloride 10 ml 04/15/21 22:00 05/06/21 21:28 Sodium Chloride 0.9% 10 Ml Flush Syringe IV 10 ml BID [facility]ANG Administration Sodium Chloride 10 ml 04/15/21 19:11 04/24/21 05:27 Sodium Chloride 0.9% 10 Ml Flush Syringe IV 10 ml PRN PRN Administration LINE FLUSH Tamsulosin HCl 0.4 mg 04/25/21 14:00 05/07/21 09:37 Tamsulosin 0.4 Mg Cap PO Not Given QDAY WOLFGANG Timolol Maleate 1 drops 04/19/21 10:00 05/06/21 09:34 Timolol 0.5% Ophth Soln 5 Ml OU 1 drops QDAY WOLFGANG Administration Nutrition/Malnutrition Assess - Dietary Evaluation Nutrition/Malnutrition Findings: Nutrition Notes Start: 04/16/21 12:31 Freq: Status: Active Protocol: Document 04/30/21 09:36 LP (Rec: 04/30/21 09:39 LP [id number]) Nutrition Notes Initial or Follow up Reassessment Current Diagnosis Acute Kidney Injury,Coronary Artery Disease,Diabetes, Hypertension Other Pertinent Diagnosis UTI, acute metabolic encephalopathy Current Diet Glucerna 1.2 at 50ml/hr Labs/Tests BUN 118 Cr 3.3 BG 263 Pertinent Medications Reviewed Height 5 ft 6 in Weight 93 kg [place] Body Weight (kg) 59.09 BMI 33.0 Weight Status Obese Subjective/Other Information Pt tolerating TF at goal rate. Pt on vent. Percent of energy/protein needs met: 100% energy 61% pro Burn Absent Trauma Absent Difficulty In Swallowing Current % PO Negligible Minimum of two criteria No physical signs of malnutrition #1 Nutrition Diagnosis Inadequate oral intake Diagnosis Progress(for reassessment Continues documentation) Is patient on ventilator? Yes Is Patient Ambulatory and/or Out of Bed No [facility] [phone] Kcal/Kg value to use for calculation 15 Approximate Energy Requirements Using 1395 kcal/Kg Calculation Used for Recommendations Kcal/kg Additional Notes Pro needs >2g/kg IBW: >118g/ day Fluid needs 1ml/kcal Nutrition Intervention Change Diet Order: TF Nutrition Support: Continue Glucerna 1.2 at 50ml/ hr with 50ml water flush q4h. Kcal 1,440 Protein (gm) 72 Fluid (mL) 966 Goal #1 TF tolerance Goal #2 TF to meet energy and pro needs as best possible Anticipated Discharge Needs: unable to determine at this time Follow-Up By: 05/07/21 Additional Comments Follow for stable TF
[2021-05-07] MEDS: TIMOLOL 0.5% OPHTH SOLN 5 ML OU SCH (10:37)
[2021-05-07] MEDS: BRIMONIDINE 0.15% OPHTH SOLN OU SCH ×2 (10:37→21:32)
--- NOTE | 2021-05-07 11:18 | Progress Note ---
Assessment and Plan Acute respiratory failure, on mechanical ventilatory support. Acute toxic metabolic encephalopathy Hypoglycemia ROJELIO Hyperkalemia Rhabdomyolysis Possible seizure activity DM II HTN CAD Obesity H/O breast cancer H/O TIA Leukocytosis Elevated serum TSH, possible hypothyroidism - keep NPO - tracheostomy later today - continue care as below otherwise; - continue to wean supplemental oxygen for target O2 sat's > 90% acutely - VAP bundle addressed - continue lung protective strategies - continue bronchodilators with pulmonary hygiene per RT - continue Daily SAT and SBT assessment as tolerated - wean per pulmonary driven protocols otherwise - continue accuchecks with glycemic control per SSI (While critically ill target blood glucose of 140-180 mg/dL; avoid hypoglycemia) - sedation prn for target RASS 0 to -1 - avoid nephrotoxins, renally dose all medications - continue to avoid benzodiazepine's, reduce the possibility of delirium - complete AB's per ID rec's re: Cefepime and Flagyl - follow clinically trend fevers / WBC - prn analgesia per CPOT score - Maintenance of sleep-wake cycle, avoid delirium - continue enteral nutritional support at goal rate as tolerated - G.I. & VTE prophylaxis - PT/OT/ROM exercises - continue Flomax re: retention - continue mobility protocols for pressure ulcer prophylaxis - Monitor hemodynamics closely - continue other care per attending / other consultants - discharge planning ongoing concurrently .... Re-evaluate in am & prn CONDITION: CRITICAL PROGNOSIS: GUARDED CODE STATUS: FULL CODE The high probability of a clinically significant, sudden or life-threatening deterioration of the [respiratory, cardiovascular, GI & neurologic] system(s) required my full and direct attention, intervention and personal management. The aggregate critical care time was [32] minutes without overlap. Time includes spent on; [x] Data Review and interpretation [x] Patient assessment and monitoring of vital signs [x] Documentation [x] Medication orders and management Subjective Date of service: 05/07/21 Principal diagnosis: Ac. resp failure; AMS; Hypoglycemia; ROJELIO; Hyperkalemia; DM II Interval history: Patient is seen today for: Acute respiratory failure; AMS; Hypoglycemia; ROJELIO; Hyperkalemia; DM II; H/O breast cancer; Elevated serum TSH, possible hypoth yroidism Seen and examined at bedside; 24hour events reviewed; nursing and respiratory care staff consulted; no adverse overnight events reported to me; resting peacefully in bed; remains on MVS; tentatively for trach placement today; NPO now Objective Vital Signs - 12hr 05/06/21 05/06/21 05/07/21 23:38 23:57 00:00 Temperature 98.9 F Pulse Rate 73 74 Pulse Rate [ Bilateral] Pulse Rate [ 79 From Monitor] Respiratory 25 H Rate Respiratory Rate [Bilateral ] Blood Pressure 157/55 O2 Sat by Pulse 99 100 Oximetry 05/07/21 05/07/21 05/07/21 00:01 01:01 02:01 Temperature Pulse Rate 79 80 85 Pulse Rate [ Bilateral] Pulse Rate [ From Monitor] Respiratory 25 H 21 26 H Rate Respiratory Rate [Bilateral ] Blood Pressure 168/76 159/68 159/68 O2 Sat by Pulse 100 99 99 Oximetry 05/07/21 05/07/21 05/07/21 02:46 03:01 03:14 Temperature Pulse Rate 72 85 Pulse Rate [ 86 Bilateral] Pulse Rate [ From Monitor] Respiratory 21 Rate Respiratory 16 Rate [Bilateral ] Blood Pressure 106/46 137/66 O2 Sat by Pulse 100 99 Oximetry 05/07/21 05/07/21 05/07/21 03:38 04:00 05:01 Temperature 99.0 F Pulse Rate 74 72 Pulse Rate [ Bilateral] Pulse Rate [ 68 From Monitor] Respiratory 20 16 Rate Respiratory Rate [Bilateral ] Blood Pressure 96/51 130/54 O2 Sat by Pulse 99 100 Oximetry 05/07/21 05/07/21 05/07/21 06:00 06:01 07:01 Temperature Pulse Rate 82 87 70 Pulse Rate [ Bilateral] Pulse Rate [ From Monitor] Respiratory 16 14 Rate Respiratory Rate [Bilateral ] Blood Pressure 130/54 130/54 116/58 O2 Sat by Pulse 99 98 Oximetry 05/07/21 05/07/21 05/07/21 08:00 08:01 08:40 Temperature 98 F Pulse Rate 77 74 69 Pulse Rate [ 77 Bilateral] Pulse Rate [ From Monitor] Respiratory 21 Rate Respiratory 27 H Rate [Bilateral ] Blood Pressure 86/65 97/58 O2 Sat by Pulse 100 100 Oximetry 05/07/21 05/07/21 05/07/21 09:01 10:01 11:01 Temperature Pulse Rate 69 67 79 Pulse Rate [ Bilateral] Pulse Rate [ From Monitor] Respiratory 15 15 21 Rate Respiratory Rate [Bilateral ] Blood Pressure 106/73 138/51 162/63 O2 Sat by Pulse 100 100 100 Oximetry Constitutional: no acute distress, other (elderly obese female with mildly increased respiratory effort at rest on MVS) Eyes: non-icteric ENT: oropharynx moist, other (ETT 24 cm RICARDO) Neck: supple, no lymphadenopathy, no JVD, other (large circumference) Effort: mildly labored Ascultation: Bilateral: diminished breath sounds, rhonchi Percussion: Bilateral: not dull Cardiovascular: regular rate and rhythm, other (S1,S2) Gastrointestinal: normoactive bowel sounds, hypoactive bowel sounds, non-tender, other (distended but soft) Integumentary: normal Extremities: no cyanosis, no edema, pulses normal, no ischemia or petechiae Neurologic: non-focal exam (tracks voice), pupils equal and round, CN II-XII normal, motor strength normal and Psychiatric: other (falt affect) CBC and BMP: 05/08/21 07:07 05/08/21 07:07 ABG, PT/INR, D-dimer: ABG ABG pH 7.464 (7.320-7.450) H 05/06/21 04:00 POC ABG pCO2 33.2 mmHg (32.0-48.0) 05/06/21 04:00 POC ABG pO2 74.2 mmHg (83-108) L 05/06/21 04:00 POC ABG HCO3 23.3 05/06/21 04:00 ABG O2 Saturation 94.9 (0-100) 05/06/21 04:00 PT/INR, D-dimer PT 14.8 Sec. (12.2-14.9) 05/07/21 08:20 INR 1.11 (0.87-1.13) 05/07/21 08:20 Abnormal lab findings: Abnormal Labs 04/15/21 04/15/21 04/15/21 17:00 17:20 17:20 WBC 11.2 H RBC Hgb Hct 43.0 H MCV RDW 15.3 H Plt Count Lymph % (Auto) 12.8 L Seg Neutrophils % 82.4 H Seg Neuts % (Manual) Lymphocytes % (Manual) Monocytes % (Manual) Seg Neutrophils # 9.3 H Seg Neutrophils # Man Lymphocytes # (Manual) Monocytes # (Manual) ABG pH POC ABG pCO2 POC ABG pO2 ABG Hemoglobin ABG Oxyhemoglobin ABG Sodium ABG Potassium ABG Chloride ABG Glucose Carboxyhemoglobin Sodium 129 L Potassium 7.1 H* Chloride 91.9 L BUN 35 H Creatinine 2.8 H Glucose POC Glucose 191 H Calcium Phosphorus Magnesium AST 69 H ALT Total Creatine Kinase CK-MB (CK-2) Troponin T Total Protein Albumin HDL Cholesterol TSH Free T3 Index Arterial Blood Glucose Arterial Blood Ionized Calcium Urine pH Urine WBC (Auto) Urine Creatinine Acetaminophen 04/15/21 04/15/21 04/15/21 17:20 17:20 17:20 WBC RBC Hgb Hct MCV RDW Plt Count Lymph % (Auto) Seg Neutrophils % Seg Neuts % (Manual) Lymphocytes % (Manual) Monocytes % (Manual) Seg Neutrophils # Seg Neutrophils # Man Lymphocytes # (Manual) Monocytes # (Manual) ABG pH POC ABG pCO2 POC ABG pO2 ABG Hemoglobin ABG Oxyhemoglobin ABG Sodium ABG Potassium ABG Chloride ABG Glucose Carboxyhemoglobin Sodium Potassium Chloride BUN Creatinine Glucose POC Glucose Calcium Phosphorus Magnesium AST ALT Total Creatine Kinase 1000 H CK-MB (CK-2) Troponin T Total Protein Albumin HDL Cholesterol TSH 14.190 H Free T3 Index Arterial Blood Glucose Arterial Blood Ionized Calcium Urine pH Urine WBC (Auto) Urine Creatinine Acetaminophen 5.0 L 04/15/21 04/15/21 04/15/21 20:49 21:23 23:15 WBC RBC Hgb Hct MCV RDW Plt Count Lymph % (Auto) Seg Neutrophils % Seg Neuts % (Manual) Lymphocytes % (Manual) Monocytes % (Manual) Seg Neutrophils # Seg Neutrophils # Man Lymphocytes # (Manual) Monocytes # (Manual) ABG pH 7.557 H POC ABG pCO2 30.0 L POC ABG pO2 493.3 H ABG Hemoglobin ABG Oxyhemoglobin 99.0 H ABG Sodium 131.5 L ABG Potassium 4.7 H ABG Chloride 94.0 L ABG Glucose 218 H Carboxyhemoglobin Sodium Potassium Chloride BUN Creatinine Glucose POC Glucose 173 H 207 H Calcium Phosphorus Magnesium AST ALT Total Creatine Kinase CK-MB (CK-2) Troponin T Total Protein Albumin HDL Cholesterol TSH Free T3 Index Arterial Blood Glucose 218 H Arterial Blood Ionized Calcium 5.4 H Urine pH Urine WBC (Auto) Urine Creatinine Acetaminophen 04/16/21 04/16/21 04/16/21 00:09 00:12 00:19 WBC RBC Hgb Hct MCV RDW Plt Count Lymph % (Auto) Seg Neutrophils % Seg Neuts % (Manual) Lymphocytes % (Manual) Monocytes % (Manual) Seg Neutrophils # Seg Neutrophils # Man Lymphocytes # (Manual) Monocytes # (Manual) ABG pH POC ABG pCO2 POC ABG pO2 ABG Hemoglobin ABG Oxyhemoglobin ABG Sodium ABG Potassium ABG Chloride ABG Glucose Carboxyhemoglobin Sodium Potassium 6.7 H* Chloride BUN Creatinine Glucose POC Glucose Calcium Phosphorus Magnesium AST ALT Total Creatine Kinase CK-MB (CK-2) Troponin T Total Protein Albumin HDL Cholesterol TSH Free T3 Index Arterial Blood Glucose Arterial Blood Ionized Calcium Urine pH 9.0 H Urine WBC (Auto) Urine Creatinine 24.4 H Acetaminophen 04/16/21 04/16/21 04/16/21 03:43 03:55 05:02 WBC 21.2 H RBC Hgb Hct 43.4 H MCV 98 H RDW Plt Count Lymph % (Auto) Seg Neutrophils % Seg Neuts % (Manual) 84.0 H Lymphocytes % (Manual) 2.0 L Monocytes % (Manual) 10.0 H Seg Neutrophils # Seg Neutrophils # Man 17.8 H Lymphocytes # (Manual) 0.4 L Monocytes # (Manual) 2.1 H ABG pH 7.461 H POC ABG pCO2 POC ABG pO2 ABG Hemoglobin ABG Oxyhemoglobin ABG Sodium 126.8 L ABG Potassium 5.4 H ABG Chloride 90.0 L ABG Glucose 325 H Carboxyhemoglobin Sodium Potassium Chloride BUN Creatinine Glucose POC Glucose 391 H Calcium Phosphorus Magnesium AST ALT Total Creatine Kinase CK-MB (CK-2) Troponin T Total Protein Albumin HDL Cholesterol TSH Free T3 Index Arterial Blood Glucose 325 H Arterial Blood Ionized Calcium Urine pH Urine WBC (Auto) Urine Creatinine Acetaminophen 04/16/21 04/16/21 04/16/21 05:02 11:34 16:09 WBC RBC Hgb Hct MCV RDW Plt Count Lymph % (Auto) Seg Neutrophils % Seg Neuts % (Manual) Lymphocytes % (Manual) Monocytes % (Manual) Seg Neutrophils # Seg Neutrophils # Man Lymphocytes # (Manual) Monocytes # (Manual) ABG pH POC ABG pCO2 POC ABG pO2 ABG Hemoglobin ABG Oxyhemoglobin ABG Sodium ABG Potassium ABG Chloride ABG Glucose Carboxyhemoglobin Sodium 131 L Potassium 5.9 H Chloride 88.7 L BUN 34 H Creatinine 2.9 H Glucose 249 H POC Glucose 382 H 300 H Calcium 10.4 H Phosphorus Magnesium AST 65 H ALT Total Creatine Kinase CK-MB (CK-2) Troponin T Total Protein Albumin 3.8 L HDL Cholesterol TSH Free T3 Index Arterial Blood Glucose Arterial Blood Ionized Calcium Urine pH Urine WBC (Auto) Urine Creatinine Acetaminophen 04/16/21 04/16/21 04/16/21 18:15 19:01 19:01 WBC RBC Hgb Hct MCV RDW Plt Count Lymph % (Auto) Seg Neutrophils % Seg Neuts % (Manual) Lymphocytes % (Manual) Monocytes % (Manual) Seg Neutrophils # Seg Neutrophils # Man Lymphocytes # (Manual) Monocytes # (Manual) ABG pH POC ABG pCO2 POC ABG pO2 ABG Hemoglobin ABG Oxyhemoglobin ABG Sodium ABG Potassium ABG Chloride ABG Glucose Carboxyhemoglobin Sodium 125 L Potassium 5.5 H Chloride 84.5 L BUN 37 H Creatinine 3.5 H Glucose 236 H POC Glucose 287 H Calcium Phosphorus Magnesium AST ALT Total Creatine Kinase CK-MB (CK-2) Troponin T Total Protein Albumin HDL Cholesterol TSH Free T3 Index 1.1 L Arterial Blood Glucose Arterial Blood Ionized Calcium Urine pH Urine WBC (Auto) Urine Creatinine Acetaminophen 04/16/21 04/16/21 04/17/21 19:01 23:48 03:09 WBC RBC Hgb Hct MCV RDW Plt Count Lymph % (Auto) Seg Neutrophils % Seg Neuts % (Manual) Lymphocytes % (Manual) Monocytes % (Manual) Seg Neutrophils # Seg Neutrophils # Man Lymphocytes # (Manual) Monocytes # (Manual) ABG pH 7.518 H POC ABG pCO2 POC ABG pO2 ABG Hemoglobin ABG Oxyhemoglobin ABG Sodium 126.4 L ABG Potassium ABG Chloride 89.0 L ABG Glucose 200 H Carboxyhemoglobin Sodium Potassium 5.6 H Chloride BUN Creatinine Glucose POC Glucose 243 H Calcium Phosphorus Magnesium AST ALT Total Creatine Kinase CK-MB (CK-2) Troponin T Total Protein Albumin HDL Cholesterol TSH Free T3 Index Arterial Blood Glucose 200 H Arterial Blood Ionized Calcium 4.4 L Urine pH Urine WBC (Auto) Urine Creatinine Acetaminophen 04/17/21 04/17/21 04/17/21 05:04 06:14 11:55 WBC RBC Hgb Hct MCV RDW Plt Count Lymph % (Auto) Seg Neutrophils % Seg Neuts % (Manual) Lymphocytes % (Manual) Monocytes % (Manual) Seg Neutrophils # Seg Neutrophils # Man Lymphocytes # (Manual) Monocytes # (Manual) ABG pH POC ABG pCO2 POC ABG pO2 ABG Hemoglobin ABG Oxyhemoglobin ABG Sodium ABG Potassium ABG Chloride ABG Glucose Carboxyhemoglobin Sodium 129 L Potassium Chloride 86.1 L BUN 39 H Creatinine 3.5 H Glucose 202 H POC Glucose 208 H 276 H Calcium Phosphorus Magnesium AST ALT Total Creatine Kinase 750 H CK-MB (CK-2) Troponin T 0.119 H* D Total Protein Albumin HDL Cholesterol 61 H TSH Free T3 Index Arterial Blood Glucose Arterial Blood Ionized Calcium Urine pH Urine WBC (Auto) Urine Creatinine Acetaminophen 04/17/21 04/17/21 04/17/21 15:35 15:35 17:07 WBC 17.1 H RBC Hgb Hct MCV RDW Plt Count Lymph % (Auto) Seg Neutrophils % Seg Neuts % (Manual) Lymphocytes % (Manual) Monocytes % (Manual) Seg Neutrophils # Seg Neutrophils # Man Lymphocytes # (Manual) Monocytes # (Manual) ABG pH POC ABG pCO2 POC ABG pO2 ABG Hemoglobin ABG Oxyhemoglobin ABG Sodium ABG Potassium ABG Chloride ABG Glucose Carboxyhemoglobin Sodium Potassium Chloride BUN Creatinine Glucose POC Glucose 148 H Calcium Phosphorus Magnesium AST ALT Total Creatine Kinase 615 H CK-MB (CK-2) 9.1 H Troponin T Total Protein Albumin HDL Cholesterol TSH Free T3 Index Arterial Blood Glucose Arterial Blood Ionized Calcium Urine pH Urine WBC (Auto) Urine Creatinine Acetaminophen 04/18/21 04/18/21 04/18/21 00:01 03:00 05:24 WBC RBC Hgb Hct MCV RDW Plt Count Lymph % (Auto) Seg Neutrophils % Seg Neuts % (Manual) Lymphocytes % (Manual) Monocytes % (Manual) Seg Neutrophils # Seg Neutrophils # Man Lymphocytes # (Manual) Monocytes # (Manual) ABG pH 7.497 H POC ABG pCO2 POC ABG pO2 77.7 L ABG Hemoglobin 10.4 L ABG Oxyhemoglobin ABG Sodium 129.7 L ABG Potassium 2.8 L ABG Chloride 92.0 L ABG Glucose 134 H Carboxyhemoglobin 0.3 L Sodium Potassium Chloride BUN Creatinine Glucose POC Glucose 192 H 162 H Calcium Phosphorus Magnesium AST ALT Total Creatine Kinase CK-MB (CK-2) Troponin T Total Protein Albumin HDL Cholesterol TSH Free T3 Index Arterial Blood Glucose 134 H Arterial Blood Ionized Calcium 4.3 L Urine pH Urine WBC (Auto) Urine Creatinine Acetaminophen 04/18/21 04/18/21 04/18/21 05:34 05:34 05:43 WBC 15.3 H RBC 3.34 L Hgb Hct MCV RDW 15.3 H Plt Count Lymph % (Auto) Seg Neutrophils % Seg Neuts % (Manual) Lymphocytes % (Manual) Monocytes % (Manual) Seg Neutrophils # Seg Neutrophils # Man Lymphocytes # (Manual) Monocytes # (Manual) ABG pH POC ABG pCO2 POC ABG pO2 ABG Hemoglobin ABG Oxyhemoglobin ABG Sodium ABG Potassium ABG Chloride ABG Glucose Carboxyhemoglobin Sodium 134 L Potassium 3.0 L D Chloride 93.5 L BUN 42 H Creatinine 3.1 H Glucose 152 H POC Glucose Calcium Phosphorus Magnesium 1.40 L AST ALT Total Creatine Kinase 427 H CK-MB (CK-2) Troponin T 0.081 H D Total Protein Albumin HDL Cholesterol TSH Free T3 Index Arterial Blood Glucose Arterial Blood Ionized Calcium Urine pH Urine WBC (Auto) Urine Creatinine Acetaminophen 04/18/21 04/18/21 04/18/21 09:11 11:34 17:24 WBC RBC Hgb Hct MCV RDW Plt Count Lymph % (Auto) Seg Neutrophils % Seg Neuts % (Manual) Lymphocytes % (Manual) Monocytes % (Manual) Seg Neutrophils # Seg Neutrophils # Man Lymphocytes # (Manual) Monocytes # (Manual) ABG pH POC ABG pCO2 POC ABG pO2 ABG Hemoglobin ABG Oxyhemoglobin ABG Sodium ABG Potassium ABG Chloride ABG Glucose Carboxyhemoglobin Sodium Potassium Chloride BUN Creatinine Glucose POC Glucose 170 H 151 H Calcium Phosphorus Magnesium AST ALT Total Creatine Kinase CK-MB (CK-2) Troponin T Total Protein Albumin HDL Cholesterol TSH Free T3 Index Arterial Blood Glucose Arterial Blood Ionized Calcium Urine pH Urine WBC (Auto) 34.0 H Urine Creatinine Acetaminophen 04/18/21 04/19/21 04/19/21 23:18 04:09 05:19 WBC RBC Hgb Hct MCV RDW Plt Count Lymph % (Auto) Seg Neutrophils % Seg Neuts % (Manual) Lymphocytes % (Manual) Monocytes % (Manual) Seg Neutrophils # Seg Neutrophils # Man Lymphocytes # (Manual) Monocytes # (Manual) ABG pH 7.476 H POC ABG pCO2 POC ABG pO2 79.4 L ABG Hemoglobin 10.7 L ABG Oxyhemoglobin ABG Sodium 131.2 L ABG Potassium 2.8 L ABG Chloride 94.0 L ABG Glucose 209 H Carboxyhemoglobin 0.3 L Sodium Potassium Chloride BUN Creatinine Glucose POC Glucose 182 H 204 H Calcium Phosphorus Magnesium AST ALT Total Creatine Kinase CK-MB (CK-2) Troponin T Total Protein Albumin HDL Cholesterol TSH Free T3 Index Arterial Blood Glucose 209 H Arterial Blood Ionized Calcium Urine pH Urine WBC (Auto) Urine Creatinine Acetaminophen 04/19/21 04/19/21 04/19/21 07:30 07:30 10:35 WBC 14.8 H RBC 3.20 L Hgb Hct MCV 98 H RDW Plt Count 137 L Lymph % (Auto) Seg Neutrophils % Seg Neuts % (Manual) Lymphocytes % (Manual) Monocytes % (Manual) Seg Neutrophils # Seg Neutrophils # Man Lymphocytes # (Manual) Monocytes # (Manual) ABG pH 7.464 H POC ABG pCO2 POC ABG pO2 81.8 L ABG Hemoglobin 10.8 L ABG Oxyhemoglobin ABG Sodium 129.6 L ABG Potassium ABG Chloride 95.0 L ABG Glucose 238 H Carboxyhemoglobin Sodium 133 L Potassium 2.8 L* Chloride 94.4 L BUN 43 H Creatinine 2.7 H Glucose 255 H POC Glucose Calcium 8.0 L Phosphorus Magnesium AST ALT Total Creatine Kinase CK-MB (CK-2) Troponin T 0.060 H D Total Protein Albumin HDL Cholesterol TSH Free T3 Index Arterial Blood Glucose 238 H Arterial Blood Ionized Calcium Urine pH Urine WBC (Auto) Urine Creatinine Acetaminophen 04/19/21 04/19/21 04/19/21 11:48 20:40 23:04 WBC RBC Hgb Hct MCV RDW Plt Count Lymph % (Auto) Seg Neutrophils % Seg Neuts % (Manual) Lymphocytes % (Manual) Monocytes % (Manual) Seg Neutrophils # Seg Neutrophils # Man Lymphocytes # (Manual) Monocytes # (Manual) ABG pH POC ABG pCO2 POC ABG pO2 ABG Hemoglobin ABG Oxyhemoglobin ABG Sodium ABG Potassium ABG Chloride ABG Glucose Carboxyhemoglobin Sodium Potassium 3.4 L D Chloride BUN Creatinine Glucose POC Glucose 208 H 173 H Calcium Phosphorus Magnesium AST ALT Total Creatine Kinase CK-MB (CK-2) Troponin T Total Protein Albumin HDL Cholesterol TSH Free T3 Index Arterial Blood Glucose Arterial Blood Ionized Calcium Urine pH Urine WBC (Auto) Urine Creatinine Acetaminophen 04/20/21 04/20/21 04/20/21 02:56 03:32 03:32 WBC 13.2 H RBC 3.18 L Hgb Hct MCV RDW Plt Count Lymph % (Auto) Seg Neutrophils % Seg Neuts % (Manual) Lymphocytes % (Manual) Monocytes % (Manual) Seg Neutrophils # Seg Neutrophils # Man Lymphocytes # (Manual) Monocytes # (Manual) ABG pH 7.526 H POC ABG pCO2 POC ABG pO2 ABG Hemoglobin 10.5 L ABG Oxyhemoglobin ABG Sodium 133.5 L ABG Potassium ABG Chloride ABG Glucose 157 H Carboxyhemoglobin 0.3 L Sodium 135 L Potassium Chloride 96.7 L BUN 40 H Creatinine 2.3 H Glucose 142 H POC Glucose Calcium Phosphorus Magnesium AST ALT Total Creatine Kinase CK-MB (CK-2) Troponin T 0.065 H Total Protein Albumin HDL Cholesterol TSH Free T3 Index Arterial Blood Glucose 157 H Arterial Blood Ionized Calcium Urine pH Urine WBC (Auto) Urine Creatinine Acetaminophen 04/20/21 04/20/21 04/20/21 03:46 05:42 11:50 WBC RBC Hgb Hct MCV RDW Plt Count Lymph % (Auto) Seg Neutrophils % Seg Neuts % (Manual) Lymphocytes % (Manual) Monocytes % (Manual) Seg Neutrophils # Seg Neutrophils # Man Lymphocytes # (Manual) Monocytes # (Manual) ABG pH POC ABG pCO2 POC ABG pO2 ABG Hemoglobin ABG Oxyhemoglobin ABG Sodium ABG Potassium ABG Chloride ABG Glucose Carboxyhemoglobin Sodium Potassium Chloride BUN Creatinine Glucose POC Glucose 160 H 194 H Calcium Phosphorus 2.10 L Magnesium AST ALT Total Creatine Kinase CK-MB (CK-2) Troponin T Total Protein Albumin HDL Cholesterol TSH Free T3 Index Arterial Blood Glucose Arterial Blood Ionized Calcium Urine pH Urine WBC (Auto) Urine Creatinine Acetaminophen 04/20/21 04/20/21 04/21/21 17:09 23:18 05:26 WBC RBC Hgb Hct MCV RDW Plt Count Lymph % (Auto) Seg Neutrophils % Seg Neuts % (Manual) Lymphocytes % (Manual) Monocytes % (Manual) Seg Neutrophils # Seg Neutrophils # Man Lymphocytes # (Manual) Monocytes # (Manual) ABG pH POC ABG pCO2 POC ABG pO2 ABG Hemoglobin ABG Oxyhemoglobin ABG Sodium ABG Potassium ABG Chloride ABG Glucose Carboxyhemoglobin Sodium Potassium Chloride BUN Creatinine Glucose POC Glucose 153 H 162 H 164 H Calcium Phosphorus Magnesium AST ALT Total Creatine Kinase CK-MB (CK-2) Troponin T Total Protein Albumin HDL Cholesterol TSH Free T3 Index Arterial Blood Glucose Arterial Blood Ionized Calcium Urine pH Urine WBC (Auto) Urine Creatinine Acetaminophen 04/21/21 04/21/21 04/21/21 05:51 05:51 12:12 WBC RBC 3.20 L Hgb Hct MCV 99 H RDW 15.3 H Plt Count Lymph % (Auto) Seg Neutrophils % Seg Neuts % (Manual) Lymphocytes % (Manual) Monocytes % (Manual) Seg Neutrophils # Seg Neutrophils # Man Lymphocytes # (Manual) Monocytes # (Manual) ABG pH POC ABG pCO2 POC ABG pO2 ABG Hemoglobin ABG Oxyhemoglobin ABG Sodium ABG Potassium ABG Chloride ABG Glucose Carboxyhemoglobin Sodium Potassium Chloride 96.6 L BUN 42 H Creatinine 2.1 H Glucose 171 H POC Glucose 167 H Calcium Phosphorus Magnesium AST ALT Total Creatine Kinase CK-MB (CK-2) Troponin T Total Protein Albumin HDL Cholesterol TSH Free T3 Index Arterial Blood Glucose Arterial Blood Ionized Calcium Urine pH Urine WBC (Auto) Urine Creatinine Acetaminophen 04/21/21 04/21/21 04/22/21 17:13 23:42 05:29 WBC RBC Hgb Hct MCV RDW Plt Count Lymph % (Auto) Seg Neutrophils % Seg Neuts % (Manual) Lymphocytes % (Manual) Monocytes % (Manual) Seg Neutrophils # Seg Neutrophils # Man Lymphocytes # (Manual) Monocytes # (Manual) ABG pH POC ABG pCO2 POC ABG pO2 ABG Hemoglobin ABG Oxyhemoglobin ABG Sodium ABG Potassium ABG Chloride ABG Glucose Carboxyhemoglobin Sodium Potassium Chloride BUN Creatinine Glucose POC Glucose 178 H 253 H 208 H Calcium Phosphorus Magnesium AST ALT Total Creatine Kinase CK-MB (CK-2) Troponin T Total Protein Albumin HDL Cholesterol TSH Free T3 Index Arterial Blood Glucose Arterial Blood Ionized Calcium Urine pH Urine WBC (Auto) Urine Creatinine Acetaminophen 04/22/21 04/22/21 04/22/21 08:00 08:00 12:06 WBC 12.9 H RBC Hgb Hct MCV RDW Plt Count Lymph % (Auto) Seg Neutrophils % Seg Neuts % (Manual) Lymphocytes % (Manual) Monocytes % (Manual) Seg Neutrophils # Seg Neutrophils # Man Lymphocytes # (Manual) Monocytes # (Manual) ABG pH POC ABG pCO2 POC ABG pO2 ABG Hemoglobin ABG Oxyhemoglobin ABG Sodium ABG Potassium ABG Chloride ABG Glucose Carboxyhemoglobin Sodium Potassium Chloride BUN 47 H Creatinine 1.9 H Glucose 252 H POC Glucose 298 H Calcium Phosphorus Magnesium AST ALT Total Creatine Kinase CK-MB (CK-2) Troponin T Total Protein Albumin HDL Cholesterol TSH Free T3 Index Arterial Blood Glucose Arterial Blood Ionized Calcium Urine pH Urine WBC (Auto) Urine Creatinine Acetaminophen 04/22/21 04/22/21 04/23/21 17:34 23:01 05:08 WBC RBC Hgb Hct MCV RDW Plt Count Lymph % (Auto) Seg Neutrophils % Seg Neuts % (Manual) Lymphocytes % (Manual) Monocytes % (Manual) Seg Neutrophils # Seg Neutrophils # Man Lymphocytes # (Manual) Monocytes # (Manual) ABG pH POC ABG pCO2 POC ABG pO2 ABG Hemoglobin ABG Oxyhemoglobin ABG Sodium ABG Potassium ABG Chloride ABG Glucose Carboxyhemoglobin Sodium Potassium Chloride BUN Creatinine Glucose POC Glucose 259 H 280 H 223 H Calcium Phosphorus Magnesium AST ALT Total Creatine Kinase CK-MB (CK-2) Troponin T Total Protein Albumin HDL Cholesterol TSH Free T3 Index Arterial Blood Glucose Arterial Blood Ionized Calcium Urine pH Urine WBC (Auto) Urine Creatinine Acetaminophen 04/23/21 04/23/21 04/23/21 07:02 11:57 17:33 WBC RBC Hgb Hct MCV RDW Plt Count Lymph % (Auto) Seg Neutrophils % Seg Neuts % (Manual) Lymphocytes % (Manual) Monocytes % (Manual) Seg Neutrophils # Seg Neutrophils # Man Lymphocytes # (Manual) Monocytes # (Manual) ABG pH POC ABG pCO2 POC ABG pO2 ABG Hemoglobin ABG Oxyhemoglobin ABG Sodium ABG Potassium ABG Chloride ABG Glucose Carboxyhemoglobin Sodium Potassium Chloride 97.7 L BUN 57 H Creatinine 2.0 H Glucose 253 H POC Glucose 310 H 235 H Calcium Phosphorus Magnesium AST ALT Total Creatine Kinase CK-MB (CK-2) Troponin T Total Protein Albumin HDL Cholesterol TSH Free T3 Index Arterial Blood Glucose Arterial Blood Ionized Calcium Urine pH Urine WBC (Auto) Urine Creatinine Acetaminophen 04/23/21 04/24/21 04/24/21 23:15 05:23 05:46 WBC RBC Hgb Hct MCV RDW Plt Count Lymph % (Auto) Seg Neutrophils % Seg Neuts % (Manual) Lymphocytes % (Manual) Monocytes % (Manual) Seg Neutrophils # Seg Neutrophils # Man Lymphocytes # (Manual) Monocytes # (Manual) ABG pH POC ABG pCO2 POC ABG pO2 ABG Hemoglobin ABG Oxyhemoglobin ABG Sodium ABG Potassium ABG Chloride ABG Glucose Carboxyhemoglobin Sodium Potassium 5.2 H D Chloride BUN 68 H Creatinine 2.3 H Glucose 277 H POC Glucose 197 H 274 H Calcium Phosphorus Magnesium AST ALT Total Creatine Kinase CK-MB (CK-2) Troponin T Total Protein Albumin HDL Cholesterol TSH Free T3 Index Arterial Blood Glucose Arterial Blood Ionized Calcium Urine pH Urine WBC (Auto) Urine Creatinine Acetaminophen 04/24/21 04/24/21 04/24/21 11:33 11:52 17:49 WBC RBC Hgb Hct MCV RDW Plt Count Lymph % (Auto) Seg Neutrophils % Seg Neuts % (Manual) Lymphocytes % (Manual) Monocytes % (Manual) Seg Neutrophils # Seg Neutrophils # Man Lymphocytes # (Manual) Monocytes # (Manual) ABG pH POC ABG pCO2 POC ABG pO2 72.7 L ABG Hemoglobin 11.6 L ABG Oxyhemoglobin 92.9 L ABG Sodium ABG Potassium ABG Chloride ABG Glucose 269 H Carboxyhemoglobin Sodium Potassium Chloride BUN Creatinine Glucose POC Glucose 223 H 252 H Calcium Phosphorus Magnesium AST ALT Total Creatine Kinase CK-MB (CK-2) Troponin T Total Protein Albumin HDL Cholesterol TSH Free T3 Index Arterial Blood Glucose 269 H Arterial Blood Ionized Calcium Urine pH Urine WBC (Auto) Urine Creatinine Acetaminophen 04/24/21 04/24/21 04/25/21 21:00 23:48 03:06 WBC RBC Hgb Hct MCV RDW Plt Count Lymph % (Auto) Seg Neutrophils % Seg Neuts % (Manual) Lymphocytes % (Manual) Monocytes % (Manual) Seg Neutrophils # Seg Neutrophils # Man Lymphocytes # (Manual) Monocytes # (Manual) ABG pH 7.521 H 7.451 H POC ABG pCO2 POC ABG pO2 80.7 L 77.1 L ABG Hemoglobin 10.4 L 11.2 L ABG Oxyhemoglobin ABG Sodium ABG Potassium ABG Chloride ABG Glucose 186 H 165 H Carboxyhemoglobin 0 L Sodium Potassium Chloride BUN Creatinine Glucose POC Glucose 141 H Calcium Phosphorus Magnesium AST ALT Total Creatine Kinase CK-MB (CK-2) Troponin T Total Protein Albumin HDL Cholesterol TSH Free T3 Index Arterial Blood Glucose 186 H 165 H Arterial Blood Ionized Calcium Urine pH Urine WBC (Auto) Urine Creatinine Acetaminophen 04/25/21 04/25/21 04/25/21 03:56 03:56 06:03 WBC 12.3 H RBC 3.40 L Hgb Hct MCV RDW Plt Count Lymph % (Auto) Seg Neutrophils % Seg Neuts % (Manual) Lymphocytes % (Manual) Monocytes % (Manual) Seg Neutrophils # Seg Neutrophils # Man Lymphocytes # (Manual) Monocytes # (Manual) ABG pH POC ABG pCO2 POC ABG pO2 ABG Hemoglobin ABG Oxyhemoglobin ABG Sodium ABG Potassium ABG Chloride ABG Glucose Carboxyhemoglobin Sodium Potassium Chloride BUN 78 H Creatinine 2.5 H Glucose 152 H POC Glucose 171 H Calcium Phosphorus Magnesium AST ALT Total Creatine Kinase CK-MB (CK-2) Troponin T Total Protein Albumin HDL Cholesterol TSH Free T3 Index Arterial Blood Glucose Arterial Blood Ionized Calcium Urine pH Urine WBC (Auto) Urine Creatinine Acetaminophen 04/25/21 04/25/21 04/26/21 11:43 15:37 00:05 WBC RBC Hgb Hct MCV RDW Plt Count Lymph % (Auto) Seg Neutrophils % Seg Neuts % (Manual) Lymphocytes % (Manual) Monocytes % (Manual) Seg Neutrophils # Seg Neutrophils # Man Lymphocytes # (Manual) Monocytes # (Manual) ABG pH POC ABG pCO2 POC ABG pO2 ABG Hemoglobin ABG Oxyhemoglobin ABG Sodium ABG Potassium ABG Chloride ABG Glucose Carboxyhemoglobin Sodium Potassium Chloride BUN Creatinine Glucose POC Glucose 181 H 167 H 144 H Calcium Phosphorus Magnesium AST ALT Total Creatine Kinase CK-MB (CK-2) Troponin T Total Protein Albumin HDL Cholesterol TSH Free T3 Index Arterial Blood Glucose Arterial Blood Ionized Calcium Urine pH Urine WBC (Auto) Urine Creatinine Acetaminophen 04/26/21 04/26/21 04/26/21 04:30 05:44 09:30 WBC RBC Hgb Hct MCV RDW Plt Count Lymph % (Auto) Seg Neutrophils % Seg Neuts % (Manual) Lymphocytes % (Manual) Monocytes % (Manual) Seg Neutrophils # Seg Neutrophils # Man Lymphocytes # (Manual) Monocytes # (Manual) ABG pH 7.529 H POC ABG pCO2 POC ABG pO2 66.1 L ABG Hemoglobin 11.2 L ABG Oxyhemoglobin 92.8 L ABG Sodium ABG Potassium ABG Chloride ABG Glucose 216 H Carboxyhemoglobin 0.3 L Sodium Potassium Chloride BUN 82 H Creatinine 2.7 H Glucose 238 H POC Glucose 202 H Calcium Phosphorus Magnesium AST ALT Total Creatine Kinase CK-MB (CK-2) Troponin T Total Protein Albumin HDL Cholesterol TSH Free T3 Index Arterial Blood Glucose 216 H Arterial Blood Ionized Calcium Urine pH Urine WBC (Auto) Urine Creatinine Acetaminophen 04/26/21 04/26/2104/26/21 09:30 11:32 17:21 WBC 24.7 H RBC 3.32 L Hgb Hct MCV RDW Plt Count Lymph % (Auto) Seg Neutrophils % Seg Neuts % (Manual) Lymphocytes % (Manual) Monocytes % (Manual) Seg Neutrophils # Seg Neutrophils # Man Lymphocytes # (Manual) Monocytes # (Manual) ABG pH POC ABG pCO2 POC ABG pO2 ABG Hemoglobin ABG Oxyhemoglobin ABG Sodium ABG Potassium ABG Chloride ABG Glucose Carboxyhemoglobin Sodium Potassium Chloride BUN Creatinine Glucose POC Glucose 245 H 264 H Calcium Phosphorus Magnesium AST ALT Total Creatine Kinase CK-MB (CK-2) Troponin T Total Protein Albumin HDL Cholesterol TSH Free T3 Index Arterial Blood Glucose Arterial Blood Ionized Calcium Urine pH Urine WBC (Auto) Urine Creatinine Acetaminophen 04/26/21 04/27/21 04/27/21 23:18 04:23 04:54 WBC RBC Hgb Hct MCV RDW Plt Count Lymph % (Auto) Seg Neutrophils % Seg Neuts % (Manual) Lymphocytes % (Manual) Monocytes % (Manual) Seg Neutrophils # Seg Neutrophils # Man Lymphocytes # (Manual) Monocytes # (Manual) ABG pH 7.549 H POC ABG pCO2 30.0 L POC ABG pO2 64.9 L ABG Hemoglobin 11 L ABG Oxyhemoglobin 93.3 L ABG Sodium ABG Potassium ABG Chloride ABG Glucose 325 H Carboxyhemoglobin 0.3 L Sodium Potassium Chloride BUN Creatinine Glucose POC Glucose 201 H 298 H Calcium Phosphorus Magnesium AST ALT Total Creatine Kinase CK-MB (CK-2) Troponin T Total Protein Albumin HDL Cholesterol TSH Free T3 Index Arterial Blood Glucose 325 H Arterial Blood Ionized Calcium Urine pH Urine WBC (Auto) Urine Creatinine Acetaminophen 04/27/21 04/27/21 04/27/21 07:52 07:52 11:22 WBC 23.0 H RBC 3.32 L Hgb Hct MCV RDW 15.5 H Plt Count Lymph % (Auto) Seg Neutrophils % Seg Neuts % (Manual) Lymphocytes % (Manual) Monocytes % (Manual) Seg Neutrophils # Seg Neutrophils # Man Lymphocytes # (Manual) Monocytes # (Manual) ABG pH POC ABG pCO2 POC ABG pO2 ABG Hemoglobin ABG Oxyhemoglobin ABG Sodium ABG Potassium ABG Chloride ABG Glucose Carboxyhemoglobin Sodium Potassium 3.5 L Chloride BUN 90 H Creatinine 2.8 H Glucose 286 H POC Glucose 251 H Calcium Phosphorus Magnesium AST ALT Total Creatine Kinase CK-MB (CK-2) Troponin T Total Protein Albumin HDL Cholesterol TSH Free T3 Index Arterial Blood Glucose Arterial Blood Ionized Calcium Urine pH Urine WBC (Auto) Urine Creatinine Acetaminophen 04/27/21 04/27/21 04/27/21 17:21 17:45 23:05 WBC RBC Hgb Hct MCV RDW Plt Count Lymph % (Auto) Seg Neutrophils % Seg Neuts % (Manual) Lymphocytes % (Manual) Monocytes % (Manual) Seg Neutrophils # Seg Neutrophils # Man Lymphocytes # (Manual) Monocytes # (Manual) ABG pH POC ABG pCO2 POC ABG pO2 ABG Hemoglobin ABG Oxyhemoglobin ABG Sodium ABG Potassium ABG Chloride ABG Glucose Carboxyhemoglobin Sodium Potassium Chloride BUN Creatinine Glucose POC Glucose 180 H 178 H 189 H Calcium Phosphorus Magnesium AST ALT Total Creatine Kinase CK-MB (CK-2) Troponin T Total Protein Albumin HDL Cholesterol TSH Free T3 Index Arterial Blood Glucose Arterial Blood Ionized Calcium Urine pH Urine WBC (Auto) Urine Creatinine Acetaminophen 04/28/21 04/28/21 04/28/21 03:14 04:13 04:13 WBC 17.6 H RBC 3.03 L Hgb 9.7 L Hct 29.5 L MCV RDW Plt Count Lymph % (Auto) Seg Neutrophils % Seg Neuts % (Manual) Lymphocytes % (Manual) Monocytes % (Manual) Seg Neutrophils # Seg Neutrophils # Man Lymphocytes # (Manual) Monocytes # (Manual) ABG pH 7.507 H POC ABG pCO2 POC ABG pO2 62.0 L ABG Hemoglobin 10.2 L ABG Oxyhemoglobin 91.9 L ABG Sodium ABG Potassium ABG Chloride ABG Glucose 337 H Carboxyhemoglobin 0.2 L Sodium Potassium Chloride BUN 101 H Creatinine 3.1 H Glucose 304 H POC Glucose Calcium Phosphorus Magnesium AST 61 H ALT 64 H Total Creatine Kinase CK-MB (CK-2) Troponin T Total Protein 6.2 L Albumin 2.6 L HDL Cholesterol TSH Free T3 Index Arterial Blood Glucose 337 H Arterial Blood Ionized Calcium Urine pH Urine WBC (Auto) Urine Creatinine Acetaminophen 04/28/21 04/28/21 04/28/21 05:01 11:28 18:23 WBC RBC Hgb Hct MCV RDW Plt Count Lymph % (Auto) Seg Neutrophils % Seg Neuts % (Manual) Lymphocytes % (Manual) Monocytes % (Manual) Seg Neutrophils # Seg Neutrophils # Man Lymphocytes # (Manual) Monocytes # (Manual) ABG pH POC ABG pCO2 POC ABG pO2 ABG Hemoglobin ABG Oxyhemoglobin ABG Sodium ABG Potassium ABG Chloride ABG Glucose Carboxyhemoglobin Sodium Potassium Chloride BUN Creatinine Glucose POC Glucose 282 H 263 H 200 H Calcium Phosphorus Magnesium AST ALT Total Creatine Kinase CK-MB (CK-2) Troponin T Total Protein Albumin HDL Cholesterol TSH Free T3 Index Arterial Blood Glucose Arterial Blood Ionized Calcium Urine pH Urine WBC (Auto) Urine Creatinine Acetaminophen 04/28/21 04/29/21 04/29/21 23:49 03:24 04:22 WBC RBC Hgb Hct MCV RDW Plt Count Lymph % (Auto) Seg Neutrophils % Seg Neuts % (Manual) Lymphocytes % (Manual) Monocytes % (Manual) Seg Neutrophils # Seg Neutrophils # Man Lymphocytes # (Manual) Monocytes # (Manual) ABG pH 7.546 H POC ABG pCO2 POC ABG pO2 52.4 L ABG Hemoglobin 10.5 L ABG Oxyhemoglobin 88.3 L ABG Sodium ABG Potassium ABG Chloride ABG Glucose 217 H Carboxyhemoglobin 0.4 L Sodium 148 H Potassium Chloride BUN 110 H Creatinine 3.1 H Glucose 208 H POC Glucose 238 H Calcium Phosphorus Magnesium AST ALT Total Creatine Kinase CK-MB (CK-2) Troponin T Total Protein Albumin HDL Cholesterol TSH Free T3 Index Arterial Blood Glucose 217 H Arterial Blood Ionized Calcium Urine pH Urine WBC (Auto) Urine Creatinine Acetaminophen 04/29/21 04/29/21 04/29/21 04:22 05:08 11:26 WBC 15.2 H RBC 3.30 L Hgb 9.8 L Hct MCV RDW Plt Count Lymph % (Auto) Seg Neutrophils % Seg Neuts % (Manual) Lymphocytes % (Manual) Monocytes % (Manual) Seg Neutrophils # Seg Neutrophils # Man Lymphocytes # (Manual) Monocytes # (Manual) ABG pH POC ABG pCO2 POC ABG pO2 ABG Hemoglobin ABG Oxyhemoglobin ABG Sodium ABG Potassium ABG Chloride ABG Glucose Carboxyhemoglobin Sodium Potassium Chloride BUN Creatinine Glucose POC Glucose 181 H 218 H Calcium Phosphorus Magnesium AST ALT Total Creatine Kinase CK-MB (CK-2) Troponin T Total Protein Albumin HDL Cholesterol TSH Free T3 Index Arterial Blood Glucose Arterial Blood Ionized Calcium Urine pH Urine WBC (Auto) Urine Creatinine Acetaminophen 05/30/21 05/30/21 05/31/21 17:06 23:06 03:58 WBC RBC Hgb Hct MCV RDW Plt Count Lymph % (Auto) Seg Neutrophils % Seg Neuts % (Manual) Lymphocytes % (Manual) Monocytes % (Manual) Seg Neutrophils # Seg Neutrophils # Man Lymphocytes # (Manual) Monocytes # (Manual) ABG pH 7.547 H POC ABG pCO2 31.3 L POC ABG pO2 58.4 L ABG Hemoglobin 9.6 L ABG Oxyhemoglobin 91.1 L ABG Sodium ABG Potassium ABG Chloride 108.0 H ABG Glucose 248 H Carboxyhemoglobin 0.2 L Sodium Potassium Chloride BUN Creatinine Glucose POC Glucose 223 H 252 H Calcium Phosphorus Magnesium AST ALT Total Creatine Kinase CK-MB (CK-2) Troponin T Total Protein Albumin HDL Cholesterol TSH Free T3 Index Arterial Blood Glucose 248 H Arterial Blood Ionized Calcium Urine pH Urine WBC (Auto) Urine Creatinine Acetaminophen 04/30/21 04/30/21 04/30/21 05:23 05:54 11:47 WBC RBC Hgb Hct MCV RDW Plt Count Lymph % (Auto) Seg Neutrophils % Seg Neuts % (Manual) Lymphocytes % (Manual) Monocytes % (Manual) Seg Neutrophils # Seg Neutrophils # Man Lymphocytes # (Manual) Monocytes # (Manual) ABG pH POC ABG pCO2 POC ABG pO2 ABG Hemoglobin ABG Oxyhemoglobin ABG Sodium ABG Potassium ABG Chloride ABG Glucose Carboxyhemoglobin Sodium Potassium Chloride BUN 118 H Creatinine 3.3 H Glucose 263 H POC Glucose 244 H 237 H Calcium Phosphorus Magnesium AST ALT Total Creatine Kinase CK-MB (CK-2) Troponin T Total Protein Albumin HDL Cholesterol TSH Free T3 Index Arterial Blood Glucose Arterial Blood Ionized Calcium Urine pH Urine WBC (Auto) Urine Creatinine Acetaminophen 04/30/21 04/30/21 04/30/21 17:26 17:45 23:51 WBC RBC Hgb Hct MCV RDW Plt Count Lymph % (Auto) Seg Neutrophils % Seg Neuts % (Manual) Lymphocytes % (Manual) Monocytes % (Manual) Seg Neutrophils # Seg Neutrophils # Man Lymphocytes # (Manual) Monocytes # (Manual) ABG pH POC ABG pCO2 POC ABG pO2 ABG Hemoglobin ABG Oxyhemoglobin ABG Sodium ABG Potassium ABG Chloride ABG Glucose Carboxyhemoglobin Sodium Potassium Chloride BUN Creatinine Glucose POC Glucose 193 H 197 H Calcium Phosphorus Magnesium AST ALT Total Creatine Kinase CK-MB (CK-2) Troponin T Total Protein Albumin HDL Cholesterol TSH Free T3 Index Arterial Blood Glucose Arterial Blood Ionized Calcium Urine pH Urine WBC (Auto) 48.0 H Urine Creatinine Acetaminophen 05/01/21 05/01/21 05/01/21 04:02 04:57 07:11 WBC 12.3 H RBC 2.83 L Hgb 8.8 L Hct 27.3 L MCV RDW Plt Count Lymph % (Auto) Seg Neutrophils % Seg Neuts % (Manual) 80.0 H Lymphocytes % (Manual) 5.0 L Monocytes % (Manual) Seg Neutrophils # Seg Neutrophils # Man 9.8 H Lymphocytes # (Manual) 0.6 L Monocytes # (Manual) ABG pH 7.466 H POC ABG pCO2 POC ABG pO2 61.4 L ABG Hemoglobin 9.0 L ABG Oxyhemoglobin 91.1 L ABG Sodium ABG Potassium ABG Chloride 110.0 H ABG Glucose 245 H Carboxyhemoglobin Sodium Potassium Chloride BUN Creatinine Glucose POC Glucose 193 H Calcium Phosphorus Magnesium AST ALT Total Creatine Kinase CK-MB (CK-2) Troponin T Total Protein Albumin HDL Cholesterol TSH Free T3 Index Arterial Blood Glucose 245 H Arterial Blood Ionized Calcium Urine pH Urine WBC (Auto) Urine Creatinine Acetaminophen 05/01/21 05/01/21 05/01/21 07:11 07:45 11:30 WBC RBC Hgb Hct MCV RDW Plt Count Lymph % (Auto) Seg Neutrophils % Seg Neuts % (Manual) Lymphocytes % (Manual) Monocytes % (Manual) Seg Neutrophils # Seg Neutrophils # Man Lymphocytes # (Manual) Monocytes # (Manual) ABG pH POC ABG pCO2 POC ABG pO2 ABG Hemoglobin ABG Oxyhemoglobin ABG Sodium ABG Potassium ABG Chloride ABG Glucose Carboxyhemoglobin Sodium 146 H Potassium Chloride 108.4 H BUN 122 H Creatinine 3.4 H Glucose 235 H POC Glucose 212 H 247 H Calcium Phosphorus Magnesium AST ALT Total Creatine Kinase CK-MB (CK-2) Troponin T Total Protein Albumin HDL Cholesterol TSH Free T3 Index Arterial Blood Glucose Arterial Blood Ionized Calcium Urine pH Urine WBC (Auto) Urine Creatinine Acetaminophen 05/01/21 05/01/21 05/01/21 11:31 17:42 23:49 WBC RBC Hgb Hct MCV RDW Plt Count Lymph % (Auto) Seg Neutrophils % Seg Neuts % (Manual) Lymphocytes % (Manual) Monocytes % (Manual) Seg Neutrophils # Seg Neutrophils # Man Lymphocytes # (Manual) Monocytes # (Manual) ABG pH POC ABG pCO2 POC ABG pO2 ABG Hemoglobin ABG Oxyhemoglobin ABG Sodium ABG Potassium ABG Chloride ABG Glucose Carboxyhemoglobin Sodium Potassium Chloride BUN Creatinine Glucose POC Glucose 258 H 171 H 167 H Calcium Phosphorus Magnesium AST ALT Total Creatine Kinase CK-MB (CK-2) Troponin T Total Protein Albumin HDL Cholesterol TSH Free T3 Index Arterial Blood Glucose Arterial Blood Ionized Calcium Urine pH Urine WBC (Auto) Urine Creatinine Acetaminophen 05/02/21 05/02/21 05/02/21 05:12 08:34 11:53 WBC RBC Hgb Hct MCV RDW Plt Count Lymph % (Auto) Seg Neutrophils % Seg Neuts % (Manual) Lymphocytes % (Manual) Monocytes % (Manual) Seg Neutrophils # Seg Neutrophils # Man Lymphocytes # (Manual) Monocytes # (Manual) ABG pH POC ABG pCO2 POC ABG pO2 ABG Hemoglobin ABG Oxyhemoglobin ABG Sodium ABG Potassium ABG Chloride ABG Glucose Carboxyhemoglobin Sodium 148 H Potassium Chloride 110.4 H BUN 124 H Creatinine 3.4 H Glucose 208 H POC Glucose 163 H 185 H Calcium 8.3 L Phosphorus Magnesium AST ALT Total Creatine Kinase CK-MB (CK-2) Troponin T Total Protein Albumin HDL Cholesterol TSH Free T3 Index Arterial Blood Glucose Arterial Blood Ionized Calcium Urine pH Urine WBC (Auto) Urine Creatinine Acetaminophen 05/02/21 05/02/21 05/03/21 17:28 23:32 03:57 WBC RBC Hgb Hct MCV RDW Plt Count Lymph % (Auto) Seg Neutrophils % Seg Neuts % (Manual) Lymphocytes % (Manual) Monocytes % (Manual) Seg Neutrophils # Seg Neutrophils # Man Lymphocytes # (Manual) Monocytes # (Manual) ABG pH 7.531 H POC ABG pCO2 31.0 L POC ABG pO2 64.3 L ABG Hemoglobin 9.0 L ABG Oxyhemoglobin 92.6 L ABG Sodium 145.7 H ABG Potassium ABG Chloride 112.0 H ABG Glucose 202 H Carboxyhemoglobin Sodium Potassium Chloride BUN Creatinine Glucose POC Glucose 147 H 202 H Calcium Phosphorus Magnesium AST ALT Total Creatine Kinase CK-MB (CK-2) Troponin T Total Protein Albumin HDL Cholesterol TSH Free T3 Index Arterial Blood Glucose 202 H Arterial Blood Ionized Calcium Urine pH Urine WBC (Auto) Urine Creatinine Acetaminophen 05/03/21 05/03/21 05/03/21 05:14 05:44 11:10 WBC RBC Hgb Hct MCV RDW Plt Count Lymph % (Auto) Seg Neutrophils % Seg Neuts % (Manual) Lymphocytes % (Manual) Monocytes % (Manual) Seg Neutrophils # Seg Neutrophils # Man Lymphocytes # (Manual) Monocytes # (Manual) ABG pH POC ABG pCO2 POC ABG pO2 ABG Hemoglobin ABG Oxyhemoglobin ABG Sodium ABG Potassium ABG Chloride ABG Glucose Carboxyhemoglobin Sodium 147 H Potassium Chloride 109.7 H BUN 121 H Creatinine 3.1 H Glucose 190 H POC Glucose 175 H 202 H Calcium Phosphorus Magnesium AST ALT Total Creatine Kinase CK-MB (CK-2) Troponin T Total Protein Albumin HDL Cholesterol TSH Free T3 Index Arterial Blood Glucose Arterial Blood Ionized Calcium Urine pH Urine WBC (Auto) Urine Creatinine Acetaminophen 05/03/21 05/04/21 05/04/21 23:58 04:57 04:57 WBC RBC 2.61 L Hgb 8.2 L Hct 25.4 L MCV 98 H RDW 15.3 H Plt Count Lymph % (Auto) Seg Neutrophils % Seg Neuts % (Manual) Lymphocytes % (Manual) Monocytes % (Manual) Seg Neutrophils # Seg Neutrophils # Man Lymphocytes # (Manual) Monocytes # (Manual) ABG pH POC ABG pCO2 POC ABG pO2 ABG Hemoglobin ABG Oxyhemoglobin ABG Sodium ABG Potassium ABG Chloride ABG Glucose Carboxyhemoglobin Sodium 147 H Potassium Chloride 111.0 H BUN 104 H Creatinine 2.8 H Glucose 179 H POC Glucose 131 H Calcium Phosphorus Magnesium AST ALT Total Creatine Kinase CK-MB (CK-2) Troponin T Total Protein Albumin HDL Cholesterol TSH Free T3 Index Arterial Blood Glucose Arterial Blood Ionized Calcium Urine pH Urine WBC (Auto) Urine Creatinine Acetaminophen 05/04/21 05/04/21 05/04/21 05:19 11:28 17:02 WBC RBC Hgb Hct MCV RDW Plt Count Lymph % (Auto) Seg Neutrophils % Seg Neuts % (Manual) Lymphocytes % (Manual) Monocytes % (Manual) Seg Neutrophils # Seg Neutrophils # Man Lymphocytes # (Manual) Monocytes # (Manual) ABG pH POC ABG pCO2 POC ABG pO2 ABG Hemoglobin ABG Oxyhemoglobin ABG Sodium ABG Potassium ABG Chloride ABG Glucose Carboxyhemoglobin Sodium Potassium Chloride BUN Creatinine Glucose POC Glucose 168 H 206 H 213 H Calcium Phosphorus Magnesium AST ALT Total Creatine Kinase CK-MB (CK-2) Troponin T Total Protein Albumin HDL Cholesterol TSH Free T3 Index Arterial Blood Glucose Arterial Blood Ionized Calcium Urine pH Urine WBC (Auto) Urine Creatinine Acetaminophen 05/04/21 05/05/21 05/05/21 23:13 04:55 05:15 WBC RBC Hgb Hct MCV RDW Plt Count Lymph % (Auto) Seg Neutrophils % Seg Neuts % (Manual) Lymphocytes % (Manual) Monocytes % (Manual) Seg Neutrophils # Seg Neutrophils # Man Lymphocytes # (Manual) Monocytes # (Manual) ABG pH POC ABG pCO2 POC ABG pO2 ABG Hemoglobin ABG Oxyhemoglobin ABG Sodium ABG Potassium ABG Chloride ABG Glucose Carboxyhemoglobin Sodium Potassium Chloride BUN 91 H Creatinine 2.4 H Glucose 255 H POC Glucose 232 H 235 H Calcium Phosphorus Magnesium AST ALT Total Creatine Kinase CK-MB (CK-2) Troponin T Total Protein Albumin HDL Cholesterol TSH Free T3 Index Arterial Blood Glucose Arterial Blood Ionized Calcium Urine pH Urine WBC (Auto) Urine Creatinine Acetaminophen 05/05/21 05/05/21 05/05/21 11:41 17:46 23:40 WBC RBC Hgb Hct MCV RDW Plt Count Lymph % (Auto) Seg Neutrophils % Seg Neuts % (Manual) Lymphocytes % (Manual) Monocytes % (Manual) Seg Neutrophils # Seg Neutrophils # Man Lymphocytes # (Manual) Monocytes # (Manual) ABG pH POC ABG pCO2 POC ABG pO2 ABG Hemoglobin ABG Oxyhemoglobin ABG Sodium ABG Potassium ABG Chloride ABG Glucose Carboxyhemoglobin Sodium Potassium Chloride BUN Creatinine Glucose POC Glucose 199 H 231 H 224 H Calcium Phosphorus Magnesium AST ALT Total Creatine Kinase CK-MB (CK-2) Troponin T Total Protein Albumin HDL Cholesterol TSH Free T3 Index Arterial Blood Glucose Arterial Blood Ionized Calcium Urine pH Urine WBC (Auto) Urine Creatinine Acetaminophen 05/06/21 05/06/21 05/06/21 04:00 05:37 07:12 WBC RBC Hgb Hct MCV RDW Plt Count Lymph % (Auto) Seg Neutrophils % Seg Neuts % (Manual) Lymphocytes % (Manual) Monocytes % (Manual) Seg Neutrophils # Seg Neutrophils # Man Lymphocytes # (Manual) Monocytes # (Manual) ABG pH 7.464 H POC ABG pCO2 POC ABG pO2 74.2 L ABG Hemoglobin 10.5 L ABG Oxyhemoglobin ABG Sodium ABG Potassium ABG Chloride 110.0 H ABG Glucose 214 H Carboxyhemoglobin 0.4 L Sodium 146 H Potassium Chloride 110.4 H BUN 82 H Creatinine 2.3 H Glucose 154 H POC Glucose 165 H Calcium Phosphorus Magnesium AST ALT Total Creatine Kinase CK-MB (CK-2) Troponin T Total Protein Albumin HDL Cholesterol TSH Free T3 Index Arterial Blood Glucose 214 H Arterial Blood Ionized Calcium Urine pH Urine WBC (Auto) Urine Creatinine Acetaminophen 05/06/21 05/06/21 05/07/21 17:11 23:40 05:26 WBC RBC Hgb Hct MCV RDW Plt Count Lymph % (Auto) Seg Neutrophils % Seg Neuts % (Manual) Lymphocytes % (Manual) Monocytes % (Manual) Seg Neutrophils # Seg Neutrophils # Man Lymphocytes # (Manual) Monocytes # (Manual) ABG pH POC ABG pCO2 POC ABG pO2 ABG Hemoglobin ABG Oxyhemoglobin ABG Sodium ABG Potassium ABG Chloride ABG Glucose Carboxyhemoglobin Sodium Potassium Chloride BUN Creatinine Glucose POC Glucose 126 H 165 H 156 H Calcium Phosphorus Magnesium AST ALT Total Creatine Kinase CK-MB (CK-2) Troponin T Total Protein Albumin HDL Cholesterol TSH Free T3 Index Arterial Blood Glucose Arterial Blood Ionized Calcium Urine pH Urine WBC (Auto) Urine Creatinine Acetaminophen 05/07/21 05/07/21 08:20 08:20 WBC RBC 2.58 L Hgb 7.9 L Hct 24.9 L MCV RDW Plt Count Lymph % (Auto) Seg Neutrophils % Seg Neuts % (Manual) Lymphocytes % (Manual) Monocytes % (Manual) Seg Neutrophils # Seg Neutrophils # Man Lymphocytes # (Manual) Monocytes # (Manual) ABG pH POC ABG pCO2 POC ABG pO2 ABG Hemoglobin ABG Oxyhemoglobin ABG Sodium ABG Potassium ABG Chloride ABG Glucose Carboxyhemoglobin Sodium Potassium Chloride 108.4 H BUN 81 H Creatinine 2.4 H Glucose 133 H POC Glucose Calcium Phosphorus Magnesium AST ALT Total Creatine Kinase CK-MB (CK-2) Troponin T Total Protein Albumin HDL Cholesterol TSH Free T3 Index Arterial Blood Glucose Arterial Blood Ionized Calcium Urine pH Urine WBC (Auto) Urine Creatinine Acetaminophen Chest x-ray: pending Allied health notes reviewed: nursing
--- NOTE | 2021-05-07 13:02 | Anesthesia Consultation ---
Anesthesia Consult and Med Hx Date of service: 05/07/21 - Airway Intubation Access Assessment: Possibly Difficult (7.5 oETT in situ) - Pulmonary Exam CTA: No - Cardiac Exam Cardiac Exam: RRR - Pre-Operative Health Status ASA Pre-Surgery Classification: ASA3 Proposed Anesthetic Plan: General - Pulmonary Hx Respiratory Symptoms: Yes (ventilator dependent respiratory failure) - Cardiovascular System Hx Hypertension: Yes Hx Coronary Artery Disease: Yes ([id number]%) Hx Heart Attack/AMI: Yes Hx Cardia Arrhythmia: Yes (paroxysmal a-fib, heart block) Hx Pacemaker: No Hx Internal Defibrillator: No - Central Nervous System CVA: Yes - Endocrine Hx Renal Disease: Yes (ROJELIO on CKD) Hx Insulin Dependent Diabetes: Yes Hx Hypothyroidism: Yes - Hematic Hx Anemia: Yes - Other Systems Hx Cancer: Yes (hx breast ca) Hx Obesity: Yes (BMI 33) - Additional Comments Anesthesia Medical History Comments: Consent obtained from nephew/RIGOBERTO Romero.
[2021-05-07] MEDS ORDERED: ROCURONIUM 50 MG/5 ML INJ IV ONE (16:09)
--- NOTE | 2021-05-07 16:27 | Anesthesia Day of Surgery ---
Anesthesia Day of Surgery - Day of Surgery Patient Examined: Yes Patient H&P Reviewed: Yes Patient is NPO: Yes
[2021-05-07] MEDS ORDERED: SODIUM CHLORIDE 0.9% 1000 ML 1,000 ML ONE (17:19)
--- NOTE | 2021-05-07 17:31 | Operative Report ---
Operative Report Operative Report: Date of surgery: 05/07/2021 Preoperative diagnosis: Vent dependence Postoperative diagnosis: Same as above Procedure: Percutaneous tracheostomy Surgeon: Angi Mohan DO Anesthesia: Geta, local Findings: Good placement of tracheostomy as visualized by fiberoptic bronchoscopy EBL: LESS than 5 cc Specimen: None Complications: None Disposition: Stable to ICU HPI and indication: Patient is a 80-year-old female with a history of hypertension, diabetes, NH, breast cancer who presented to the emergency room with hypoglycemia and altered mental status on 04/15/21. Patient was intubated initially. Patient was initially extubated on 04/20/21 but required reintubation on 04/24/21. Patient has not been able to weaned from vent and therefore surgery consult requested for trach/peg. She is not tolerating CPAP trials and becomes tachypneic. As she cannot be safely weaned from the ventilator, a tracheostomy was requested by the church musician. All risk, benefits, alternatives to the procedure were discussed with the patient's nephew/next of kin and questions answered. Consent obtained for tracheostomy and PEG tube. Procedure in detail: The patient was identified in the ICU and brought down to the operating room and positioned in supine position in the hospital bed. Consent was verified on the chart and timeout was performed. Anesthesia was administered. A shoulder roll was placed, with the patient's neck mildly hyperextended. The neck was prepped and draped in usual sterile fashion. A timeout was performed. Dr. Baird performed fiberoptic bronchoscopy throughout the entire procedure -see separate note. The fiberoptic bronchoscope was inserted through the endotracheal tube via the adapter and the trachea examined. The trachea was unremarkable and the 7.5 ET tube was approximately 3 cm from mary at 24 cm at the lip. 1% lidocaine was infiltrated into the skin and subcutaneous tissue approximately 2 fingerbreadths above the sternal notch. A 3 cm incision was made in a horizontal fashion using a 15 blade. Using a hemostat the soft tissues were bluntly dissected until the trachea was encountered. The ET tube was then pulled back slowly to 16 cm. Using the introducer needle, the trachea was entered under direct visualization. The wire was passed down the trachea towards the mary. Introducer needle was then removed. The trachea was then serially dilated, after which a 8 [place]iley tracheostomy tube was inserted. The balloon was inflated, patient placed back on ventilator. There was end-tidal CO2 detected and tidal volumes assessed which were satisfactory. The bronchoscope was then placed through the tracheostomy and showed good positioning of the tracheostomy approximately 5 cm above the mary and no bleeding. A drain sponge was placed between the skin and tracheostomy. The tracheostomy was secured to the patient's neck using a tracheostomy strap. A post op chest x-ray is pending. The patient tolerated the procedure well. All sharps were disposed of appropriately. We then turned our attention to performing PEG tube - see separate note
--- NOTE | 2021-05-07 17:38 | Operative Report ---
Operative Report Operative Report: Date of surgery: 05/07/2021 Preoperative diagnosis: Vent dependent respiratory failure Postoperative diagnosis: Same as above Procedure: PEG tube placement Surgeon: DO Jihan Co-surgeonMD Andre Anesthesia: Geta Findings: PEG outer bumper at 3cm EBL:5cc Specimen:n/a Complications: none Disposition:Stable to ICU HPI and indication: Patient is an 80-year-old female with past medical history of hypertension who was brought to the emergency room for altered mental status and required intubation. Patient was unable to be weaned from the vent and a tracheostomy and PEG tube requested by the risk control product liability director. All risk and benefits, alternatives to the procedure discussed with the patient's next of kin/nephew and consent obtained. Procedure in detail: A mouthguard was placed through which a flexible endoscope was passed through the mouth and into the esophagus. The NG tube was visualized along the way. The endoscope was advanced through the esophagus and into the stomach. The stomach was unremarkable. The stomach was insufflated and transillumination performed. A clear area of transillumination was visualized in the left upper quadrant and marked. The skin was then prepped and draped in usual sterile fashion. Local anesthetic was infiltrated into the skin at the intended incision site. A small incision was made in the skin using an 11 blade. An introducer needle/breakaway sheath was inserted directly through this incision into the stomach under direct endoscopic visualization and without difficulty. The needle was removed. The wire was passed and grasped with a snare by the co- surgeon and the wire pulled along with the endoscope through the mouth. The PEG tube was assembled onto the wire and pulled back through the mouth and down into the stomach. The outer bumper was at 3 cm at the skin. The PEG tube was cut to size and assembled in the usual fashion. A drain sponge was applied between the skin and the PEG tube and the tube secured with tape. The endoscope was then reinserted into the mouth and advanced into the stomach. The PEG tube inner bumper was seen to lay flush against the gastric mucosa without tension. There is no bleeding. The scope was then withdrawn back into the stomach and retroflexed. The entirety of the stomach was unremarkable. The NG tube was withdrawn. The stomach was then desufflated and the endoscope withdrawn. The patient tolerated the procedure well. All sharps were disposed of appropriately. The patient was taken back to the ICU in stable condition.
--- NOTE | 2021-05-07 17:40 | Post Anesthesia Evaluation ---
- Post Anesthesia Evaluation Patient Participated: No (sedated) Airway Patent: Yes (new tracheostomy in place) Stable Respiratory Function: Yes Nausea/Vomiting: No (unable to assess) Temp > 96.8F: Yes Pain Manageable: Yes Adequeate Hydration: Yes Anesthesia Complications: No Patient on Ventilator: Yes (returned to preop vent settings) Other Comments: Transported to ICU with VS monitored and stable, respirations via AMBU. Report given to BUSINESS AND MARKETING TEACHER and RT at bedside on arrival to ICU. Stable at time of transfer of care.
--- NOTE | 2021-05-07 18:00 | XRay Report ---
CHEST 1 VIEW INDICATION / CLINICAL INFORMATION: trach. Respiratory distress FINDINGS: SUPPORT DEVICES: Tracheostomy tube terminates at midline. HEART / MEDIASTINUM: No significant abnormality. LUNGS / PLEURA: Ill-defined airspace disease within the left lower lobe. Signer Name: Dallas León MD Signed: 05/07/2021 5:56 PM Workstation Name: [id number]
--- NOTE | 2021-05-07 18:18 | Operative Report ---
Operative Report Operative Report: Date: 05/07/2021 Surgeon: Cruz Baird MD Procedure: Fiber optic bronchoscope Pre-op diagnosis: ventilator dependence Post-op diagnosis: same as pre-op Anesthesia: GETA HPI and indication: Patient is a 80 male. Patient intubated and sedated therefore unable to provided detail history. The patient has been unable to be weaned from the ventilator and therefore tracheostomy with assistance of fiberoptic bronchoscopy is indicated along with PEG tube placement. All risks were discussed with the family, and consent obtained. Procedure in detail: The patient was identified in the hospital bed in the ICU and brought down to the OR. After anesthesia was induced, the fiberoptic bronchoscope was passed through the endotracheal tube using an adapter. The trachea and mary were visualized, there was a normal appearance of the mucosa and no debris or fluid was seen. At this point, Dr. Mohan who performed the tracheostomy portion of the procedure (please see separate operative note), asked for the endotracheal tube to be withdrawn slowly. The upper trachea was visualized and appeared normal. At this point, Dr. Mohan placed the tracheostomy tube under direct visualization by fiberoptic bronchoscopy. Please see separate operative note for more details on Tracheostomy placement. Once the tracheostomy tube was placed, the bronchoscope was withdrawn from the endotracheal tube and placed through the tracheostomy tube. The tracheostomy tube appeared to be in good position approximately 5 cm above the mary. The bronchoscope was then withdrawn. EBL: minimal Complications: none immediate Specimen: none
[2021-05-07] MEDS: LATANOPROST 0.005% OPHTH SOLN 2.5 ML OU SCH (18:42)
[2021-05-07] MEDS: PRAVASTATIN 20 MG TAB PO SCH (21:30)
[2021-05-08] MEDS: INSULIN LISPRO 100 UNIT/ML SUB-Q SCH ×4 (00:20→17:36)
[2021-05-08] MEDS: IPRATROPIUM/ALBUTEROL SULFATE 3 ML AMPUL.NEB IH SCH ×4 (03:11→20:21)
[2021-05-08] MEDS: LEVOTHYROXINE 25 MCG TAB PO SCH (06:06)
[2021-05-08] MEDS: hydrALAZINE 25 MG TAB PO SCH ×3 (06:06→21:32)
[2021-05-08 07:35] LABS: Hematocrit 28.5 % (30.3-42.9); Mean Corpuscular HGB Conc 32 % (30-34); Mean Corpuscular Volume 97 fl (79-97); Platelet Count 307 K/mm3 (140-440); Red Blood Count 2.94 M/mm3 (3.65-5.03); Red Cell Distribution Width 15.1 % (13.2-15.2)
[2021-05-08 07:55] LABS: Calcium 9.8 mg/dL (8.4-10.2)
[2021-05-08] MEDS: METOPROLOL TARTRATE 25 MG TAB PO SCH ×2 (09:42→21:33)
[2021-05-08] MEDS: TAMSULOSIN 0.4 MG CAP PO SCH (09:42)
[2021-05-08] MEDS: ASPIRIN 81 MG TAB CHEW PO SCH (09:42)
[2021-05-08] MEDS: FAMOTIDINE 20 MG TAB PO SCH (09:43)
[2021-05-08] MEDS: SCOPOLAMINE TRANSDERMAL PATCH 72 HR TD SCH (09:44)
[2021-05-08] MEDS: BRIMONIDINE 0.15% OPHTH SOLN OU SCH ×2 (09:44→21:32)
[2021-05-08] MEDS: TIMOLOL 0.5% OPHTH SOLN 5 ML OU SCH (09:44)
[2021-05-08] MEDS: DOCUSATE SODIUM 100 MG/10 ML ORAL LIQD PO SCH ×2 (09:44→21:34)
[2021-05-08] MEDS: HEPARIN 5,000 UNIT/1 ML VIAL SUB-Q SCH ×2 (09:45→21:35)
[2021-05-08] MEDS: amLODIPine 10 MG TAB PO SCH (09:45)
--- NOTE | 2021-05-08 12:57 | Progress Note ---
Assessment and Plan 80 yo F s/p percutaneous tracheostomy, fiberoptic bronchoscopy, PEG, POD 1 1. TF as teo 2. Trach care as per protocol 3. G tube care 4. GI/DVT ppx 5. will s/o Thank you, please call with questions. Subjective Date of service: 05/08/21 Narrative: Pt seen and examined. No overnight events. Objective Vital Signs - 12hr 05/08/21 05/08/21 05/08/21 01:00 02:00 03:00 Temperature Pulse Rate 76 73 76 Pulse Rate [ Bilateral] Pulse Rate [ From Monitor] Respiratory 13 13 21 Rate Respiratory Rate [Bilateral ] Blood Pressure 146/66 144/66 121/55 O2 Sat by Pulse 100 100 100 Oximetry O2 Sat by Pulse Oximetry [ Assessment] 05/08/21 05/08/21 05/08/21 03:12 03:53 04:00 Temperature 98.9 F Pulse Rate 78 81 Pulse Rate [ 77 Bilateral] Pulse Rate [ 90 From Monitor] Respiratory 33 H Rate Respiratory 18 Rate [Bilateral ] Blood Pressure 184/83 164/56 O2 Sat by Pulse 100 100 Oximetry O2 Sat by Pulse Oximetry [ Assessment] 05/08/21 05/08/21 05/08/21 04:01 05:00 06:00 Temperature Pulse Rate 83 88 Pulse Rate [ Bilateral] Pulse Rate [ From Monitor] Respiratory 22 21 Rate Respiratory Rate [Bilateral ] Blood Pressure 175/60 169/66 O2 Sat by Pulse 100 100 Oximetry O2 Sat by Pulse 100 Oximetry [ Assessment] 05/08/21 05/08/21 05/08/21 06:06 07:00 07:07 Temperature 98.2 F Pulse Rate 85 87 Pulse Rate [ Bilateral] Pulse Rate [ From Monitor] Respiratory 19 Rate Respiratory Rate [Bilateral ] Blood Pressure 173/60 160/42 O2 Sat by Pulse 100 Oximetry O2 Sat by Pulse Oximetry [ Assessment] 05/08/21 05/08/21 05/08/21 07:36 07:43 07:46 Temperature Pulse Rate 85 84 Pulse Rate [ 85 Bilateral] Pulse Rate [ From Monitor] Respiratory 31 H Rate Respiratory 25 H Rate [Bilateral ] Blood Pressure 141/54 141/54 O2 Sat by Pulse 100 100 Oximetry O2 Sat by Pulse Oximetry [ Assessment] 05/08/21 05/08/21 05/08/21 08:00 09:00 09:42 Temperature Pulse Rate 87 91 H 90 Pulse Rate [ Bilateral] Pulse Rate [ 90 From Monitor] Respiratory 21 31 H Rate Respiratory Rate [Bilateral ] Blood Pressure 148/49 147/48 133/49 O2 Sat by Pulse 100 100 Oximetry O2 Sat by Pulse Oximetry [ Assessment] 05/08/21 05/08/21 05/08/21 09:45 10:00 11:00 Temperature Pulse Rate 92 H 92 H 84 Pulse Rate [ Bilateral] Pulse Rate [ From Monitor] Respiratory 33 H 29 H Rate Respiratory Rate [Bilateral ] Blood Pressure 133/49 164/59 147/56 O2 Sat by Pulse 100 100 Oximetry O2 Sat by Pulse Oximetry [ Assessment] 05/08/21 12:09 Temperature Pulse Rate 86 Pulse Rate [ Bilateral] Pulse Rate [ From Monitor] Respiratory 25 H Rate Respiratory Rate [Bilateral ] Blood Pressure 134/50 O2 Sat by Pulse 100 Oximetry O2 Sat by Pulse Oximetry [ Assessment] - General physical appearance Narrative Exam: Gen: Eyes open. NAD ENT: Trach in place without bleeding, swelling. CV: s1, S2+ Resp: on CPAP mode on vent. No wheezes Abd: soft, NT, mildly distended/protuberant. PEG tube in place with outer bumper at 3cm. Site is c/d/i. TF running. - Labs 05/08/21 07:07 05/08/21 07:07 Diabetes panel 05/08/21 Range/Units 07:07 Sodium 142 (137-145) mmol/L Potassium 5.0 (3.6-5.0) mmol/L Chloride 107.0 (98-107) mmol/L Carbon Dioxide 25 (22-30) mmol/L BUN 73 H (7-17) mg/dL Creatinine 2.2 H (0.6-1.2) mg/dL Glucose 211 H (65-100) mg/dL Calcium 9.8 (8.4-10.2) mg/dL Calcium panel 05/08/21 Range/Units 07:07 Calcium 9.8 (8.4-10.2) mg/dL Pituitary panel 05/08/21 Range/Units 07:07 Sodium 142 (137-145) mmol/L Potassium 5.0 (3.6-5.0) mmol/L Chloride 107.0 (98-107) mmol/L Carbon Dioxide 25 (22-30) mmol/L BUN 73 H (7-17) mg/dL Creatinine 2.2 H (0.6-1.2) mg/dL Glucose 211 H (65-100) mg/dL Calcium 9.8 (8.4-10.2) mg/dL Adrenal panel 05/08/21 Range/Units 07:07 Sodium 142 (137-145) mmol/L Potassium 5.0 (3.6-5.0) mmol/L Chloride 107.0 (98-107) mmol/L Carbon Dioxide 25 (22-30) mmol/L BUN 73 H (7-17) mg/dL Creatinine 2.2 H (0.6-1.2) mg/dL Glucose 211 H (65-100) mg/dL Calcium 9.8 (8.4-10.2) mg/dL
--- NOTE | 2021-05-08 13:08 | Progress Note ---
Assessment and Plan Acute respiratory failure, on mechanical ventilatory support. Acute toxic metabolic encephalopathy Hypoglycemia ROJELIO Hyperkalemia Rhabdomyolysis Possible seizure activity DM II HTN CAD Obesity H/O breast cancer H/O TIA Leukocytosis Elevated serum TSH, possible hypothyroidism - resume tube feeds - reduce p-supp to 10 cm H2O slowly as tolerated (TV > 300 ml's & rate < 30- 35/min) - rest on AC qhs or if tires out - LTAC evaluation is appropriate - continue care as below otherwise; - continue to wean supplemental oxygen for target O2 sat's > 90% acutely - VAP bundle addressed - continue lung protective strategies - continue bronchodilators with pulmonary hygiene per RT - continue Daily SAT and SBT assessment as tolerated - wean per pulmonary driven protocols otherwise - continue accuchecks with glycemic control per SSI (While critically ill target blood glucose of 140-180 mg/dL; avoid hypoglycemia) - sedation prn for target RASS 0 to -1 - avoid nephrotoxins, renally dose all medications - continue to avoid benzodiazepine's, reduce the possibility of delirium - complete AB's per ID rec's re: Cefepime and Flagyl - follow clinically trend fevers / WBC - prn analgesia per CPOT score - Maintenance of sleep-wake cycle, avoid delirium - continue enteral nutritional support at goal rate as tolerated - G.I. & VTE prophylaxis - PT/OT/ROM exercises - continue Flomax re: retention - continue mobility protocols for pressure ulcer prophylaxis - Monitor hemodynamics closely - continue other care per attending / other consultants - discharge planning ongoing concurrently .... Re-evaluate in am & prn CONDITION: CRITICAL PROGNOSIS: GUARDED CODE STATUS: FULL CODE The high probability of a clinically significant, sudden or life-threatening deterioration of the [respiratory, cardiovascular, GI & neurologic] system(s) required my full and direct attention, intervention and personal management. The aggregate critical care time was [36] minutes without overlap. Time includes spent on; [x] Data Review and interpretation [x] Patient assessment and monitoring of vital signs [x] Documentation [x] Medication orders and management Subjective Date of service: 05/08/21 Principal diagnosis: Ac. resp failure; AMS; Hypoglycemia; ROJELIO; Hyperkalemia; DM II Interval history: Patient is seen today for: Acute respiratory failure; AMS; Hypoglycemia; ROJELIO; Hyperkalemia; DM II; H/O breast cancer; Elevated serum TSH, possible hypothyroidism Seen and examined at bedside; 24hour events reviewed; nursing and respiratory care staff consulted; no adverse overnight events reported to me; resting peacefully in bed; remains on MVS; s/p tracheostomy yesterday; on a SBT but tole rating tenuously and requiring 15 cm H2O of p-supp; azotemia continues to improve Objective Vital Signs - 12hr 05/08/21 05/08/21 05/08/21 02:00 03:00 03:12 Temperature Pulse Rate 73 76 Pulse Rate [ 77 Bilateral] Pulse Rate [ From Monitor] Respiratory 13 21 Rate Respiratory 18 Rate [Bilateral ] Blood Pressure 144/66 121/55 O2 Sat by Pulse 100 100 Oximetry O2 Sat by Pulse Oximetry [ Assessment] 05/08/21 05/08/21 05/08/21 03:53 04:00 04:01 Temperature 98.9 F Pulse Rate 78 81 Pulse Rate [ Bilateral] Pulse Rate [ 90 From Monitor] Respiratory 33 H Rate Respiratory Rate [Bilateral ] Blood Pressure 184/83 164/56 O2 Sat by Pulse 100 100 Oximetry O2 Sat by Pulse 100 Oximetry [ Assessment] 05/08/21 05/08/21 05/08/21 05:00 06:00 06:06 Temperature Pulse Rate 83 88 85 Pulse Rate [ Bilateral] Pulse Rate [ From Monitor] Respiratory 22 21 Rate Respiratory Rate [Bilateral ] Blood Pressure 175/60 169/66 173/60 O2 Sat by Pulse 100 100 Oximetry O2 Sat by Pulse Oximetry [ Assessment] 05/08/21 05/08/21 05/08/21 07:00 07:07 07:36 Temperature 98.2 F Pulse Rate 87 85 Pulse Rate [ Bilateral] Pulse Rate [ From Monitor] Respiratory 19 Rate Respiratory Rate [Bilateral ] Blood Pressure 160/42 141/54 O2 Sat by Pulse 100 100 Oximetry O2 Sat by Pulse Oximetry [ Assessment] 05/08/21 05/08/21 05/08/21 07:43 07:46 08:00 Temperature Pulse Rate 84 87 Pulse Rate [ 85 Bilateral] Pulse Rate [ 90 From Monitor] Respiratory 31 H 21 Rate Respiratory 25 H Rate [Bilateral ] Blood Pressure 141/54 148/49 O2 Sat by Pulse 100 100 Oximetry O2 Sat by Pulse Oximetry [ Assessment] 05/08/21 05/08/21 05/08/21 09:00 09:42 09:45 Temperature Pulse Rate 91 H 90 92 H Pulse Rate [ Bilateral] Pulse Rate [ From Monitor] Respiratory 31 H Rate Respiratory Rate [Bilateral ] Blood Pressure 147/48 133/49 133/49 O2 Sat by Pulse 100 Oximetry O2 Sat by Pulse Oximetry [ Assessment] 05/08/21 05/08/21 05/08/21 10:00 11:00 12:09 Temperature Pulse Rate 92 H 84 86 Pulse Rate [ Bilateral] Pulse Rate [ From Monitor] Respiratory 33 H 29 H 25 H Rate Respiratory Rate [Bilateral ] Blood Pressure 164/59 147/56 134/50 O2 Sat by Pulse 100 100 100 Oximetry O2 Sat by Pulse Oximetry [ Assessment] Constitutional: no acute distress, other (elderly obese female with mildly increased respiratory effort at rest on MVS) Eyes: non-icteric ENT: oropharynx moist, other (+ midline tracheostomy without bleeding stoma) Neck: supple, no lymphadenopathy, no JVD, other (large circumference) Effort: mildly labored Ascultation: Bilateral: diminished breath sounds, rhonchi Percussion: Bilateral: not dull Cardiovascular: regular rate and rhythm, other (S1,S2) Gastrointestinal: normoactive bowel sounds, hypoactive bowel sounds, non-tender, other (distended but soft) Integumentary: normal Extremities: no cyanosis, no edema, pulses normal, no ischemia or petechiae Neurologic: non-focal exam (tracks voice), pupils equal and round, CN II-XII normal, motor strength normal and Psychiatric: other (falt affect) CBC and BMP: 05/08/21 07:07 05/08/21 07:07 ABG, PT/INR, D-dimer: ABG ABG pH 7.454 (7.320-7.450) H 05/08/21 03:05 POC ABG pCO2 34.2 mmHg (32.0-48.0) 05/08/21 03:05 POC ABG pO2 82.1 mmHg (83-108) L 05/08/21 03:05 POC ABG HCO3 23.5 05/08/21 03:05 ABG O2 Saturation 96.1 (0-100) 05/08/21 03:05 PT/INR, D-dimer PT 14.8 Sec. (12.2-14.9) 05/07/21 08:20 INR 1.11 (0.87-1.13) 05/07/21 08:20 Abnormal lab findings: Abnormal Labs 04/15/21 04/15/21 04/15/21 17:00 17:20 17:20 WBC 11.2 H RBC Hgb Hct 43.0 H MCV RDW 15.3 H Plt Count Lymph % (Auto) 12.8 L Seg Neutrophils % 82.4 H Seg Neuts % (Manual) Lymphocytes % (Manual) Monocytes % (Manual) Seg Neutrophils # 9.3 H Seg Neutrophils # Man Lymphocytes # (Manual) Monocytes # (Manual) ABG pH POC ABG pCO2 POC ABG pO2 ABG Hemoglobin ABG Oxyhemoglobin ABG Sodium ABG Potassium ABG Chloride ABG Glucose Carboxyhemoglobin Sodium 129 L Potassium 7.1 H* Chloride 91.9 L BUN 35 H Creatinine 2.8 H Glucose POC Glucose 191 H Calcium Phosphorus Magnesium AST 69 H ALT Total Creatine Kinase CK-MB (CK-2) Troponin T Total Protein Albumin HDL Cholesterol TSH Free T3 Index Arterial Blood Glucose Arterial Blood Ionized Calcium Urine pH Urine WBC (Auto) Urine Creatinine Acetaminophen 04/15/21 04/15/21 04/15/21 17:20 17:20 17:20 WBC RBC Hgb Hct MCV RDW Plt Count Lymph % (Auto) Seg Neutrophils % Seg Neuts % (Manual) Lymphocytes % (Manual) Monocytes % (Manual) Seg Neutrophils # Seg Neutrophils # Man Lymphocytes # (Manual) Monocytes # (Manual) ABG pH POC ABG pCO2 POC ABG pO2 ABG Hemoglobin ABG Oxyhemoglobin ABG Sodium ABG Potassium ABG Chloride ABG Glucose Carboxyhemoglobin Sodium Potassium Chloride BUN Creatinine Glucose POC Glucose Calcium Phosphorus Magnesium AST ALT Total Creatine Kinase 1000 H CK-MB (CK-2) Troponin T Total Protein Albumin HDL Cholesterol TSH 14.190 H Free T3 Index Arterial Blood Glucose Arterial Blood Ionized Calcium Urine pH Urine WBC (Auto) Urine Creatinine Acetaminophen 5.0 L 04/15/21 04/15/21 04/15/21 20:49 21:23 23:15 WBC RBC Hgb Hct MCV RDW Plt Count Lymph % (Auto) Seg Neutrophils % Seg Neuts % (Manual) Lymphocytes % (Manual) Monocytes % (Manual) Seg Neutrophils # Seg Neutrophils # Man Lymphocytes # (Manual) Monocytes # (Manual) ABG pH 7.557 H POC ABG pCO2 30.0 L POC ABG pO2 493.3 H ABG Hemoglobin ABG Oxyhemoglobin 99.0 H ABG Sodium 131.5 L ABG Potassium 4.7 H ABG Chloride 94.0 L ABG Glucose 218 H Carboxyhemoglobin Sodium Potassium Chloride BUN Creatinine Glucose POC Glucose 173 H 207 H Calcium Phosphorus Magnesium AST ALT Total Creatine Kinase CK-MB (CK-2) Troponin T Total Protein Albumin HDL Cholesterol TSH Free T3 Index Arterial Blood Glucose 218 H Arterial Blood Ionized Calcium 5.4 H Urine pH Urine WBC (Auto) Urine Creatinine Acetaminophen 04/16/21 04/16/21 04/16/21 00:09 00:12 00:19 WBC RBC Hgb Hct MCV RDW Plt Count Lymph % (Auto) Seg Neutrophils % Seg Neuts % (Manual) Lymphocytes % (Manual) Monocytes % (Manual) Seg Neutrophils # Seg Neutrophils # Man Lymphocytes # (Manual) Monocytes # (Manual) ABG pH POC ABG pCO2 POC ABG pO2 ABG Hemoglobin ABG Oxyhemoglobin ABG Sodium ABG Potassium ABG Chloride ABG Glucose Carboxyhemoglobin Sodium Potassium 6.7 H* Chloride BUN Creatinine Glucose POC Glucose Calcium Phosphorus Magnesium AST ALT Total Creatine Kinase CK-MB (CK-2) Troponin T Total Protein Albumin HDL Cholesterol TSH Free T3 Index Arterial Blood Glucose Arterial Blood Ionized Calcium Urine pH 9.0 H Urine WBC (Auto) Urine Creatinine 24.4 H Acetaminophen 04/16/21 04/16/21 04/16/21 03:43 03:55 05:02 WBC 21.2 H RBC Hgb Hct 43.4 H MCV 98 H RDW Plt Count Lymph % (Auto) Seg Neutrophils % Seg Neuts % (Manual) 84.0 H Lymphocytes % (Manual) 2.0 L Monocytes % (Manual) 10.0 H Seg Neutrophils # Seg Neutrophils # Man 17.8 H Lymphocytes # (Manual) 0.4 L Monocytes # (Manual) 2.1 H ABG pH 7.461 H POC ABG pCO2 POC ABG pO2 ABG Hemoglobin ABG Oxyhemoglobin ABG Sodium 126.8 L ABG Potassium 5.4 H ABG Chloride 90.0 L ABG Glucose 325 H Carboxyhemoglobin Sodium Potassium Chloride BUN Creatinine Glucose POC Glucose 391 H Calcium Phosphorus Magnesium AST ALT Total Creatine Kinase CK-MB (CK-2) Troponin T Total Protein Albumin HDL Cholesterol TSH Free T3 Index Arterial Blood Glucose 325 H Arterial Blood Ionized Calcium Urine pH Urine WBC (Auto) Urine Creatinine Acetaminophen 04/16/21 04/16/21 04/16/21 05:02 11:34 16:09 WBC RBC Hgb Hct MCV RDW Plt Count Lymph % (Auto) Seg Neutrophils % Seg Neuts % (Manual) Lymphocytes % (Manual) Monocytes % (Manual) Seg Neutrophils # Seg Neutrophils # Man Lymphocytes # (Manual) Monocytes # (Manual) ABG pH POC ABG pCO2 POC ABG pO2 ABG Hemoglobin ABG Oxyhemoglobin ABG Sodium ABG Potassium ABG Chloride ABG Glucose Carboxyhemoglobin Sodium 131 L Potassium 5.9 H Chloride 88.7 L BUN 34 H Creatinine 2.9 H Glucose 249 H POC Glucose 382 H 300 H Calcium 10.4 H Phosphorus Magnesium AST 65 H ALT Total Creatine Kinase CK-MB (CK-2) Troponin T Total Protein Albumin 3.8 L HDL Cholesterol TSH Free T3 Index Arterial Blood Glucose Arterial Blood Ionized Calcium Urine pH Urine WBC (Auto) Urine Creatinine Acetaminophen 04/16/21 04/16/21 04/16/21 18:15 19:01 19:01 WBC RBC Hgb Hct MCV RDW Plt Count Lymph % (Auto) Seg Neutrophils % Seg Neuts % (Manual) Lymphocytes % (Manual) Monocytes % (Manual) Seg Neutrophils # Seg Neutrophils # Man Lymphocytes # (Manual) Monocytes # (Manual) ABG pH POC ABG pCO2 POC ABG pO2 ABG Hemoglobin ABG Oxyhemoglobin ABG Sodium ABG Potassium ABG Chloride ABG Glucose Carboxyhemoglobin Sodium 125 L Potassium 5.5 H Chloride 84.5 L BUN 37 H Creatinine 3.5 H Glucose 236 H POC Glucose 287 H Calcium Phosphorus Magnesium AST ALT Total Creatine Kinase CK-MB (CK-2) Troponin T Total Protein Albumin HDL Cholesterol TSH Free T3 Index 1.1 L Arterial Blood Glucose Arterial Blood Ionized Calcium Urine pH Urine WBC (Auto) Urine Creatinine Acetaminophen 04/16/21 04/16/21 04/17/21 19:01 23:48 03:09 WBC RBC Hgb Hct MCV RDW Plt Count Lymph % (Auto) Seg Neutrophils % Seg Neuts % (Manual) Lymphocytes % (Manual) Monocytes % (Manual) Seg Neutrophils # Seg Neutrophils # Man Lymphocytes # (Manual) Monocytes # (Manual) ABG pH 7.518 H POC ABG pCO2 POC ABG pO2 ABG Hemoglobin ABG Oxyhemoglobin ABG Sodium 126.4 L ABG Potassium ABG Chloride 89.0 L ABG Glucose 200 H Carboxyhemoglobin Sodium Potassium 5.6 H Chloride BUN Creatinine Glucose POC Glucose 243 H Calcium Phosphorus Magnesium AST ALT Total Creatine Kinase CK-MB (CK-2) Troponin T Total Protein Albumin HDL Cholesterol TSH Free T3 Index Arterial Blood Glucose 200 H Arterial Blood Ionized Calcium 4.4 L Urine pH Urine WBC (Auto) Urine Creatinine Acetaminophen 04/17/21 04/17/21 04/17/21 05:04 06:14 11:55 WBC RBC Hgb Hct MCV RDW Plt Count Lymph % (Auto) Seg Neutrophils % Seg Neuts % (Manual) Lymphocytes % (Manual) Monocytes % (Manual) Seg Neutrophils # Seg Neutrophils # Man Lymphocytes # (Manual) Monocytes # (Manual) ABG pH POC ABG pCO2 POC ABG pO2 ABG Hemoglobin ABG Oxyhemoglobin ABG Sodium ABG Potassium ABG Chloride ABG Glucose Carboxyhemoglobin Sodium 129 L Potassium Chloride 86.1 L BUN 39 H Creatinine 3.5 H Glucose 202 H POC Glucose 208 H 276 H Calcium Phosphorus Magnesium AST ALT Total Creatine Kinase 750 H CK-MB (CK-2) Troponin T 0.119 H* D Total Protein Albumin HDL Cholesterol 61 H TSH Free T3 Index Arterial Blood Glucose Arterial Blood Ionized Calcium Urine pH Urine WBC (Auto) Urine Creatinine Acetaminophen 04/17/21 04/17/21 04/17/21 15:35 15:35 17:07 WBC 17.1 H RBC Hgb Hct MCV RDW Plt Count Lymph % (Auto) Seg Neutrophils % Seg Neuts % (Manual) Lymphocytes % (Manual) Monocytes % (Manual) Seg Neutrophils # Seg Neutrophils # Man Lymphocytes # (Manual) Monocytes # (Manual) ABG pH POC ABG pCO2 POC ABG pO2 ABG Hemoglobin ABG Oxyhemoglobin ABG Sodium ABG Potassium ABG Chloride ABG Glucose Carboxyhemoglobin Sodium Potassium Chloride BUN Creatinine Glucose POC Glucose 148 H Calcium Phosphorus Magnesium AST ALT Total Creatine Kinase 615 H CK-MB (CK-2) 9.1 H Troponin T Total Protein Albumin HDL Cholesterol TSH Free T3 Index Arterial Blood Glucose Arterial Blood Ionized Calcium Urine pH Urine WBC (Auto) Urine Creatinine Acetaminophen 04/18/21 04/18/21 04/18/21 00:01 03:00 05:24 WBC RBC Hgb Hct MCV RDW Plt Count Lymph % (Auto) Seg Neutrophils % Seg Neuts % (Manual) Lymphocytes % (Manual) Monocytes % (Manual) Seg Neutrophils # Seg Neutrophils # Man Lymphocytes # (Manual) Monocytes # (Manual) ABG pH 7.497 H POC ABG pCO2 POC ABG pO2 77.7 L ABG Hemoglobin 10.4 L ABG Oxyhemoglobin ABG Sodium 129.7 L ABG Potassium 2.8 L ABG Chloride 92.0 L ABG Glucose 134 H Carboxyhemoglobin 0.3 L Sodium Potassium Chloride BUN Creatinine Glucose POC Glucose 192 H 162 H Calcium Phosphorus Magnesium AST ALT Total Creatine Kinase CK-MB (CK-2) Troponin T Total Protein Albumin HDL Cholesterol TSH Free T3 Index Arterial Blood Glucose 134 H Arterial Blood Ionized Calcium 4.3 L Urine pH Urine WBC (Auto) Urine Creatinine Acetaminophen 04/18/21 04/18/21 04/18/21 05:34 05:34 05:43 WBC 15.3 H RBC 3.34 L Hgb Hct MCV RDW 15.3 H Plt Count Lymph % (Auto) Seg Neutrophils % Seg Neuts % (Manual) Lymphocytes % (Manual) Monocytes % (Manual) Seg Neutrophils # Seg Neutrophils # Man Lymphocytes # (Manual) Monocytes # (Manual) ABG pH POC ABG pCO2 POC ABG pO2 ABG Hemoglobin ABG Oxyhemoglobin ABG Sodium ABG Potassium ABG Chloride ABG Glucose Carboxyhemoglobin Sodium 134 L Potassium 3.0 L D Chloride 93.5 L BUN 42 H Creatinine 3.1 H Glucose 152 H POC Glucose Calcium Phosphorus Magnesium 1.40 L AST ALT Total Creatine Kinase 427 H CK-MB (CK-2) Troponin T 0.081 H D Total Protein Albumin HDL Cholesterol TSH Free T3 Index Arterial Blood Glucose Arterial Blood Ionized Calcium Urine pH Urine WBC (Auto) Urine Creatinine Acetaminophen 04/18/21 04/18/21 04/18/21 09:11 11:34 17:24 WBC RBC Hgb Hct MCV RDW Plt Count Lymph % (Auto) Seg Neutrophils % Seg Neuts % (Manual) Lymphocytes % (Manual) Monocytes % (Manual) Seg Neutrophils # Seg Neutrophils # Man Lymphocytes # (Manual) Monocytes # (Manual) ABG pH POC ABG pCO2 POC ABG pO2 ABG Hemoglobin ABG Oxyhemoglobin ABG Sodium ABG Potassium ABG Chloride ABG Glucose Carboxyhemoglobin Sodium Potassium Chloride BUN Creatinine Glucose POC Glucose 170 H 151 H Calcium Phosphorus Magnesium AST ALT Total Creatine Kinase CK-MB (CK-2) Troponin T Total Protein Albumin HDL Cholesterol TSH Free T3 Index Arterial Blood Glucose Arterial Blood Ionized Calcium Urine pH Urine WBC (Auto) 34.0 H Urine Creatinine Acetaminophen 04/18/21 04/19/21 04/19/21 23:18 04:09 05:19 WBC RBC Hgb Hct MCV RDW Plt Count Lymph % (Auto) Seg Neutrophils % Seg Neuts % (Manual) Lymphocytes % (Manual) Monocytes % (Manual) Seg Neutrophils # Seg Neutrophils # Man Lymphocytes # (Manual) Monocytes # (Manual) ABG pH 7.476 H POC ABG pCO2 POC ABG pO2 79.4 L ABG Hemoglobin 10.7 L ABG Oxyhemoglobin ABG Sodium 131.2 L ABG Potassium 2.8 L ABG Chloride 94.0 L ABG Glucose 209 H Carboxyhemoglobin 0.3 L Sodium Potassium Chloride BUN Creatinine Glucose POC Glucose 182 H 204 H Calcium Phosphorus Magnesium AST ALT Total Creatine Kinase CK-MB (CK-2) Troponin T Total Protein Albumin HDL Cholesterol TSH Free T3 Index Arterial Blood Glucose 209 H Arterial Blood Ionized Calcium Urine pH Urine WBC (Auto) Urine Creatinine Acetaminophen 04/19/21 04/19/21 04/19/21 07:30 07:30 10:35 WBC 14.8 H RBC 3.20 L Hgb Hct MCV 98 H RDW Plt Count 137 L Lymph % (Auto) Seg Neutrophils % Seg Neuts % (Manual) Lymphocytes % (Manual) Monocytes % (Manual) Seg Neutrophils # Seg Neutrophils # Man Lymphocytes # (Manual) Monocytes # (Manual) ABG pH 7.464 H POC ABG pCO2 POC ABG pO2 81.8 L ABG Hemoglobin 10.8 L ABG Oxyhemoglobin ABG Sodium 129.6 L ABG Potassium ABG Chloride 95.0 L ABG Glucose 238 H Carboxyhemoglobin Sodium 133 L Potassium 2.8 L* Chloride 94.4 L BUN 43 H Creatinine 2.7 H Glucose 255 H POC Glucose Calcium 8.0 L Phosphorus Magnesium AST ALT Total Creatine Kinase CK-MB (CK-2) Troponin T 0.060 H D Total Protein Albumin HDL Cholesterol TSH Free T3 Index Arterial Blood Glucose 238 H Arterial Blood Ionized Calcium Urine pH Urine WBC (Auto) Urine Creatinine Acetaminophen 04/19/21 04/19/21 04/19/21 11:48 20:40 23:04 WBC RBC Hgb Hct MCV RDW Plt Count Lymph % (Auto) Seg Neutrophils % Seg Neuts % (Manual) Lymphocytes % (Manual) Monocytes % (Manual) Seg Neutrophils # Seg Neutrophils # Man Lymphocytes # (Manual) Monocytes # (Manual) ABG pH POC ABG pCO2 POC ABG pO2 ABG Hemoglobin ABG Oxyhemoglobin ABG Sodium ABG Potassium ABG Chloride ABG Glucose Carboxyhemoglobin Sodium Potassium 3.4 L D Chloride BUN Creatinine Glucose POC Glucose 208 H 173 H Calcium Phosphorus Magnesium AST ALT Total Creatine Kinase CK-MB (CK-2) Troponin T Total Protein Albumin HDL Cholesterol TSH Free T3 Index Arterial Blood Glucose Arterial Blood Ionized Calcium Urine pH Urine WBC (Auto) Urine Creatinine Acetaminophen 04/20/21 04/20/21 04/20/21 02:56 03:32 03:32 WBC 13.2 H RBC 3.18 L Hgb Hct MCV RDW Plt Count Lymph % (Auto) Seg Neutrophils % Seg Neuts % (Manual) Lymphocytes % (Manual) Monocytes % (Manual) Seg Neutrophils # Seg Neutrophils # Man Lymphocytes # (Manual) Monocytes # (Manual) ABG pH 7.526 H POC ABG pCO2 POC ABG pO2 ABG Hemoglobin 10.5 L ABG Oxyhemoglobin ABG Sodium 133.5 L ABG Potassium ABG Chloride ABG Glucose 157 H Carboxyhemoglobin 0.3 L Sodium 135 L Potassium Chloride 96.7 L BUN 40 H Creatinine 2.3 H Glucose 142 H POC Glucose Calcium Phosphorus Magnesium AST ALT Total Creatine Kinase CK-MB (CK-2) Troponin T 0.065 H Total Protein Albumin HDL Cholesterol TSH Free T3 Index Arterial Blood Glucose 157 H Arterial Blood Ionized Calcium Urine pH Urine WBC (Auto) Urine Creatinine Acetaminophen 04/20/21 04/20/21 04/20/21 03:46 05:42 11:50 WBC RBC Hgb Hct MCV RDW Plt Count Lymph % (Auto) Seg Neutrophils % Seg Neuts % (Manual) Lymphocytes % (Manual) Monocytes % (Manual) Seg Neutrophils # Seg Neutrophils # Man Lymphocytes # (Manual) Monocytes # (Manual) ABG pH POC ABG pCO2 POC ABG pO2 ABG Hemoglobin ABG Oxyhemoglobin ABG Sodium ABG Potassium ABG Chloride ABG Glucose Carboxyhemoglobin Sodium Potassium Chloride BUN Creatinine Glucose POC Glucose 160 H 194 H Calcium Phosphorus 2.10 L Magnesium AST ALT Total Creatine Kinase CK-MB (CK-2) Troponin T Total Protein Albumin HDL Cholesterol TSH Free T3 Index Arterial Blood Glucose Arterial Blood Ionized Calcium Urine pH Urine WBC (Auto) Urine Creatinine Acetaminophen 04/20/21 04/20/21 04/21/21 17:09 23:18 05:26 WBC RBC Hgb Hct MCV RDW Plt Count Lymph % (Auto) Seg Neutrophils % Seg Neuts % (Manual) Lymphocytes % (Manual) Monocytes % (Manual) Seg Neutrophils # Seg Neutrophils # Man Lymphocytes # (Manual) Monocytes # (Manual) ABG pH POC ABG pCO2 POC ABG pO2 ABG Hemoglobin ABG Oxyhemoglobin ABG Sodium ABG Potassium ABG Chloride ABG Glucose Carboxyhemoglobin Sodium Potassium Chloride BUN Creatinine Glucose POC Glucose 153 H 162 H 164 H Calcium Phosphorus Magnesium AST ALT Total Creatine Kinase CK-MB (CK-2) Troponin T Total Protein Albumin HDL Cholesterol TSH Free T3 Index Arterial Blood Glucose Arterial Blood Ionized Calcium Urine pH Urine WBC (Auto) Urine Creatinine Acetaminophen 04/21/21 04/21/21 04/21/21 05:51 05:51 12:12 WBC RBC 3.20 L Hgb Hct MCV 99 H RDW 15.3 H Plt Count Lymph % (Auto) Seg Neutrophils % Seg Neuts % (Manual) Lymphocytes % (Manual) Monocytes % (Manual) Seg Neutrophils # Seg Neutrophils # Man Lymphocytes # (Manual) Monocytes # (Manual) ABG pH POC ABG pCO2 POC ABG pO2 ABG Hemoglobin ABG Oxyhemoglobin ABG Sodium ABG Potassium ABG Chloride ABG Glucose Carboxyhemoglobin Sodium Potassium Chloride 96.6 L BUN 42 H Creatinine 2.1 H Glucose 171 H POC Glucose 167 H Calcium Phosphorus Magnesium AST ALT Total Creatine Kinase CK-MB (CK-2) Troponin T Total Protein Albumin HDL Cholesterol TSH Free T3 Index Arterial Blood Glucose Arterial Blood Ionized Calcium Urine pH Urine WBC (Auto) Urine Creatinine Acetaminophen 04/21/21 04/21/21 04/22/21 17:13 23:42 05:29 WBC RBC Hgb Hct MCV RDW Plt Count Lymph % (Auto) Seg Neutrophils % Seg Neuts % (Manual) Lymphocytes % (Manual) Monocytes % (Manual) Seg Neutrophils # Seg Neutrophils # Man Lymphocytes # (Manual) Monocytes # (Manual) ABG pH POC ABG pCO2 POC ABG pO2 ABG Hemoglobin ABG Oxyhemoglobin ABG Sodium ABG Potassium ABG Chloride ABG Glucose Carboxyhemoglobin Sodium Potassium Chloride BUN Creatinine Glucose POC Glucose 178 H 253 H 208 H Calcium Phosphorus Magnesium AST ALT Total Creatine Kinase CK-MB (CK-2) Troponin T Total Protein Albumin HDL Cholesterol TSH Free T3 Index Arterial Blood Glucose Arterial Blood Ionized Calcium Urine pH Urine WBC (Auto) Urine Creatinine Acetaminophen 04/22/21 04/22/21 04/22/21 08:00 08:00 12:06 WBC 12.9 H RBC Hgb Hct MCV RDW Plt Count Lymph % (Auto) Seg Neutrophils % Seg Neuts % (Manual) Lymphocytes % (Manual) Monocytes % (Manual) Seg Neutrophils # Seg Neutrophils # Man Lymphocytes # (Manual) Monocytes # (Manual) ABG pH POC ABG pCO2 POC ABG pO2 ABG Hemoglobin ABG Oxyhemoglobin ABG Sodium ABG Potassium ABG Chloride ABG Glucose Carboxyhemoglobin Sodium Potassium Chloride BUN 47 H Creatinine 1.9 H Glucose 252 H POC Glucose 298 H Calcium Phosphorus Magnesium AST ALT Total Creatine Kinase CK-MB (CK-2) Troponin T Total Protein Albumin HDL Cholesterol TSH Free T3 Index Arterial Blood Glucose Arterial Blood Ionized Calcium Urine pH Urine WBC (Auto) Urine Creatinine Acetaminophen 04/22/21 04/22/21 04/23/21 17:34 23:01 05:08 WBC RBC Hgb Hct MCV RDW Plt Count Lymph % (Auto) Seg Neutrophils % Seg Neuts % (Manual) Lymphocytes % (Manual) Monocytes % (Manual) Seg Neutrophils # Seg Neutrophils # Man Lymphocytes # (Manual) Monocytes # (Manual) ABG pH POC ABG pCO2 POC ABG pO2 ABG Hemoglobin ABG Oxyhemoglobin ABG Sodium ABG Potassium ABG Chloride ABG Glucose Carboxyhemoglobin Sodium Potassium Chloride BUN Creatinine Glucose POC Glucose 259 H 280 H 223 H Calcium Phosphorus Magnesium AST ALT Total Creatine Kinase CK-MB (CK-2) Troponin T Total Protein Albumin HDL Cholesterol TSH Free T3 Index Arterial Blood Glucose Arterial Blood Ionized Calcium Urine pH Urine WBC (Auto) Urine Creatinine Acetaminophen 04/23/21 04/23/21 04/23/21 07:02 11:57 17:33 WBC RBC Hgb Hct MCV RDW Plt Count Lymph % (Auto) Seg Neutrophils % Seg Neuts % (Manual) Lymphocytes % (Manual) Monocytes % (Manual) Seg Neutrophils # Seg Neutrophils # Man Lymphocytes # (Manual) Monocytes # (Manual) ABG pH POC ABG pCO2 POC ABG pO2 ABG Hemoglobin ABG Oxyhemoglobin ABG Sodium ABG Potassium ABG Chloride ABG Glucose Carboxyhemoglobin Sodium Potassium Chloride 97.7 L BUN 57 H Creatinine 2.0 H Glucose 253 H POC Glucose 310 H 235 H Calcium Phosphorus Magnesium AST ALT Total Creatine Kinase CK-MB (CK-2) Troponin T Total Protein Albumin HDL Cholesterol TSH Free T3 Index Arterial Blood Glucose Arterial Blood Ionized Calcium Urine pH Urine WBC (Auto) Urine Creatinine Acetaminophen 04/23/21 04/24/21 04/24/21 23:15 05:23 05:46 WBC RBC Hgb Hct MCV RDW Plt Count Lymph % (Auto) Seg Neutrophils % Seg Neuts % (Manual) Lymphocytes % (Manual) Monocytes % (Manual) Seg Neutrophils # Seg Neutrophils # Man Lymphocytes # (Manual) Monocytes # (Manual) ABG pH POC ABG pCO2 POC ABG pO2 ABG Hemoglobin ABG Oxyhemoglobin ABG Sodium ABG Potassium ABG Chloride ABG Glucose Carboxyhemoglobin Sodium Potassium 5.2 H D Chloride BUN 68 H Creatinine 2.3 H Glucose 277 H POC Glucose 197 H 274 H Calcium Phosphorus Magnesium AST ALT Total Creatine Kinase CK-MB (CK-2) Troponin T Total Protein Albumin HDL Cholesterol TSH Free T3 Index Arterial Blood Glucose Arterial Blood Ionized Calcium Urine pH Urine WBC (Auto) Urine Creatinine Acetaminophen 04/24/21 04/24/21 04/24/21 11:33 11:52 17:49 WBC RBC Hgb Hct MCV RDW Plt Count Lymph % (Auto) Seg Neutrophils % Seg Neuts % (Manual) Lymphocytes % (Manual) Monocytes % (Manual) Seg Neutrophils # Seg Neutrophils # Man Lymphocytes # (Manual) Monocytes # (Manual) ABG pH POC ABG pCO2 POC ABG pO2 72.7 L ABG Hemoglobin 11.6 L ABG Oxyhemoglobin 92.9 L ABG Sodium ABG Potassium ABG Chloride ABG Glucose 269 H Carboxyhemoglobin Sodium Potassium Chloride BUN Creatinine Glucose POC Glucose 223 H 252 H Calcium Phosphorus Magnesium AST ALT Total Creatine Kinase CK-MB (CK-2) Troponin T Total Protein Albumin HDL Cholesterol TSH Free T3 Index Arterial Blood Glucose 269 H Arterial Blood Ionized Calcium Urine pH Urine WBC (Auto) Urine Creatinine Acetaminophen 04/24/21 04/24/21 04/25/21 21:00 23:48 03:06 WBC RBC Hgb Hct MCV RDW Plt Count Lymph % (Auto) Seg Neutrophils % Seg Neuts % (Manual) Lymphocytes % (Manual) Monocytes % (Manual) Seg Neutrophils # Seg Neutrophils # Man Lymphocytes # (Manual) Monocytes # (Manual) ABG pH 7.521 H 7.451 H POC ABG pCO2 POC ABG pO2 80.7 L 77.1 L ABG Hemoglobin 10.4 L 11.2 L ABG Oxyhemoglobin ABG Sodium ABG Potassium ABG Chloride ABG Glucose 186 H 165 H Carboxyhemoglobin 0 L Sodium Potassium Chloride BUN Creatinine Glucose POC Glucose 141 H Calcium Phosphorus Magnesium AST ALT Total Creatine Kinase CK-MB (CK-2) Troponin T Total Protein Albumin HDL Cholesterol TSH Free T3 Index Arterial Blood Glucose 186 H 165 H Arterial Blood Ionized Calcium Urine pH Urine WBC (Auto) Urine Creatinine Acetaminophen 04/25/21 04/25/21 04/25/21 03:56 03:56 06:03 WBC 12.3 H RBC 3.40 L Hgb Hct MCV RDW Plt Count Lymph % (Auto) Seg Neutrophils % Seg Neuts % (Manual) Lymphocytes % (Manual) Monocytes % (Manual) Seg Neutrophils # Seg Neutrophils # Man Lymphocytes # (Manual) Monocytes # (Manual) ABG pH POC ABG pCO2 POC ABG pO2 ABG Hemoglobin ABG Oxyhemoglobin ABG Sodium ABG Potassium ABG Chloride ABG Glucose Carboxyhemoglobin Sodium Potassium Chloride BUN 78 H Creatinine 2.5 H Glucose 152 H POC Glucose 171 H Calcium Phosphorus Magnesium AST ALT Total Creatine Kinase CK-MB (CK-2) Troponin T Total Protein Albumin HDL Cholesterol TSH Free T3 Index Arterial Blood Glucose Arterial Blood Ionized Calcium Urine pH Urine WBC (Auto) Urine Creatinine Acetaminophen 04/25/21 04/25/21 04/26/21 11:43 15:37 00:05 WBC RBC Hgb Hct MCV RDW Plt Count Lymph % (Auto) Seg Neutrophils % Seg Neuts % (Manual) Lymphocytes % (Manual) Monocytes % (Manual) Seg Neutrophils # Seg Neutrophils # Man Lymphocytes # (Manual) Monocytes # (Manual) ABG pH POC ABG pCO2 POC ABG pO2 ABG Hemoglobin ABG Oxyhemoglobin ABG Sodium ABG Potassium ABG Chloride ABG Glucose Carboxyhemoglobin Sodium Potassium Chloride BUN Creatinine Glucose POC Glucose 181 H 167 H 144 H Calcium Phosphorus Magnesium AST ALT Total Creatine Kinase CK-MB (CK-2) Troponin T Total Protein Albumin HDL Cholesterol TSH Free T3 Index Arterial Blood Glucose Arterial Blood Ionized Calcium Urine pH Urine WBC (Auto) Urine Creatinine Acetaminophen 04/26/21 04/26/21 04/26/21 04:30 05:44 09:30 WBC RBC Hgb Hct MCV RDW Plt Count Lymph % (Auto) Seg Neutrophils % Seg Neuts % (Manual) Lymphocytes % (Manual) Monocytes % (Manual) Seg Neutrophils # Seg Neutrophils # Man Lymphocytes # (Manual) Monocytes # (Manual) ABG pH 7.529 H POC ABG pCO2 POC ABG pO2 66.1 L ABG Hemoglobin 11.2 L ABG Oxyhemoglobin 92.8 L ABG Sodium ABG Potassium ABG Chloride ABG Glucose 216 H Carboxyhemoglobin 0.3 L Sodium Potassium Chloride BUN 82 H Creatinine 2.7 H Glucose 238 H POC Glucose 202 H Calcium Phosphorus Magnesium AST ALT Total Creatine Kinase CK-MB (CK-2) Troponin T Total Protein Albumin HDL Cholesterol TSH Free T3 Index Arterial Blood Glucose 216 H Arterial Blood Ionized Calcium Urine pH Urine WBC (Auto) Urine Creatinine Acetaminophen 04/26/21 04/26/21 04/26/21 09:30 11:32 17:21 WBC 24.7 H RBC 3.32 L Hgb Hct MCV RDW Plt Count Lymph % (Auto) Seg Neutrophils % Seg Neuts % (Manual) Lymphocytes % (Manual) Monocytes % (Manual) Seg Neutrophils # Seg Neutrophils # Man Lymphocytes # (Manual) Monocytes # (Manual) ABG pH POC ABG pCO2 POC ABG pO2 ABG Hemoglobin ABG Oxyhemoglobin ABG Sodium ABG Potassium ABG Chloride ABG Glucose Carboxyhemoglobin Sodium Potassium Chloride BUN Creatinine Glucose POC Glucose 245 H 264 H Calcium Phosphorus Magnesium AST ALT Total Creatine Kinase CK-MB (CK-2) Troponin T Total Protein Albumin HDL Cholesterol TSH Free T3 Index Arterial Blood Glucose Arterial Blood Ionized Calcium Urine pH Urine WBC (Auto) Urine Creatinine Acetaminophen 04/26/21 04/27/21 04/27/21 23:18 04:23 04:54 WBC RBC Hgb Hct MCV RDW Plt Count Lymph % (Auto) Seg Neutrophils % Seg Neuts % (Manual) Lymphocytes % (Manual) Monocytes % (Manual) Seg Neutrophils # Seg Neutrophils # Man Lymphocytes # (Manual) Monocytes # (Manual) ABG pH 7.549 H POC ABG pCO2 30.0 L POC ABG pO2 64.9 L ABG Hemoglobin 11 L ABG Oxyhemoglobin 93.3 L ABG Sodium ABG Potassium ABG Chloride ABG Glucose 325 H Carboxyhemoglobin 0.3 L Sodium Potassium Chloride BUN Creatinine Glucose POC Glucose 201 H 298 H Calcium Phosphorus Magnesium AST ALT Total Creatine Kinase CK-MB (CK-2) Troponin T Total Protein Albumin HDL Cholesterol TSH Free T3 Index Arterial Blood Glucose 325 H Arterial Blood Ionized Calcium Urine pH Urine WBC (Auto) Urine Creatinine Acetaminophen 04/27/21 04/27/2121 07:52 07:52 11:22 WBC 23.0 H RBC 3.32 L Hgb Hct MCV RDW 15.5 H Plt Count Lymph % (Auto) Seg Neutrophils % Seg Neuts % (Manual) Lymphocytes % (Manual) Monocytes % (Manual) Seg Neutrophils # Seg Neutrophils # Man Lymphocytes # (Manual) Monocytes # (Manual) ABG pH POC ABG pCO2 POC ABG pO2 ABG Hemoglobin ABG Oxyhemoglobin ABG Sodium ABG Potassium ABG Chloride ABG Glucose Carboxyhemoglobin Sodium Potassium 3.5 L Chloride BUN 90 H Creatinine 2.8 H Glucose 286 H POC Glucose 251 H Calcium Phosphorus Magnesium AST ALT Total Creatine Kinase CK-MB (CK-2) Troponin T Total Protein Albumin HDL Cholesterol TSH Free T3 Index Arterial Blood Glucose Arterial Blood Ionized Calcium Urine pH Urine WBC (Auto) Urine Creatinine Acetaminophen 04/27/21 04/27/21 04/27/21 17:21 17:45 23:05 WBC RBC Hgb Hct MCV RDW Plt Count Lymph % (Auto) Seg Neutrophils % Seg Neuts % (Manual) Lymphocytes % (Manual) Monocytes % (Manual) Seg Neutrophils # Seg Neutrophils # Man Lymphocytes # (Manual) Monocytes # (Manual) ABG pH POC ABG pCO2 POC ABG pO2 ABG Hemoglobin ABG Oxyhemoglobin ABG Sodium ABG Potassium ABG Chloride ABG Glucose Carboxyhemoglobin Sodium Potassium Chloride BUN Creatinine Glucose POC Glucose 180 H 178 H 189 H Calcium Phosphorus Magnesium AST ALT Total Creatine Kinase CK-MB (CK-2) Troponin T Total Protein Albumin HDL Cholesterol TSH Free T3 Index Arterial Blood Glucose Arterial Blood Ionized Calcium Urine pH Urine WBC (Auto) Urine Creatinine Acetaminophen 04/28/21 04/28/21 04/28/21 03:14 04:13 04:13 WBC 17.6 H RBC 3.03 L Hgb 9.7 L Hct 29.5 L MCV RDW Plt Count Lymph % (Auto) Seg Neutrophils % Seg Neuts % (Manual) Lymphocytes % (Manual) Monocytes % (Manual) Seg Neutrophils # Seg Neutrophils # Man Lymphocytes # (Manual) Monocytes # (Manual) ABG pH 7.507 H POC ABG pCO2 POC ABG pO2 62.0 L ABG Hemoglobin 10.2 L ABG Oxyhemoglobin 91.9 L ABG Sodium ABG Potassium ABG Chloride ABG Glucose 337 H Carboxyhemoglobin 0.2 L Sodium Potassium Chloride BUN 101 H Creatinine 3.1 H Glucose 304 H POC Glucose Calcium Phosphorus Magnesium AST 61 H ALT 64 H Total Creatine Kinase CK-MB (CK-2) Troponin T Total Protein 6.2 L Albumin 2.6 L HDL Cholesterol TSH Free T3 Index Arterial Blood Glucose 337 H Arterial Blood Ionized Calcium Urine pH Urine WBC (Auto) Urine Creatinine Acetaminophen 04/28/21 04/28/21 04/28/21 05:01 11:28 18:23 WBC RBC Hgb Hct MCV RDW Plt Count Lymph % (Auto) Seg Neutrophils % Seg Neuts % (Manual) Lymphocytes % (Manual) Monocytes % (Manual) Seg Neutrophils # Seg Neutrophils # Man Lymphocytes # (Manual) Monocytes # (Manual) ABG pH POC ABG pCO2 POC ABG pO2 ABG Hemoglobin ABG Oxyhemoglobin ABG Sodium ABG Potassium ABG Chloride ABG Glucose Carboxyhemoglobin Sodium Potassium Chloride BUN Creatinine Glucose POC Glucose 282 H 263 H 200 H Calcium Phosphorus Magnesium AST ALT Total Creatine Kinase CK-MB (CK-2) Troponin T Total Protein Albumin HDL Cholesterol TSH Free T3 Index Arterial Blood Glucose Arterial Blood Ionized Calcium Urine pH Urine WBC (Auto) Urine Creatinine Acetaminophen 04/28/21 04/29/21 04/29/21 23:49 03:24 04:22 WBC RBC Hgb Hct MCV RDW Plt Count Lymph % (Auto) Seg Neutrophils % Seg Neuts % (Manual) Lymphocytes % (Manual) Monocytes % (Manual) Seg Neutrophils # Seg Neutrophils # Man Lymphocytes # (Manual) Monocytes # (Manual) ABG pH 7.546 H POC ABG pCO2 POC ABG pO2 52.4 L ABG Hemoglobin 10.5 L ABG Oxyhemoglobin 88.3 L ABG Sodium ABG Potassium ABG Chloride ABG Glucose 217 H Carboxyhemoglobin 0.4 L Sodium 148 H Potassium Chloride BUN 110 H Creatinine 3.1 H Glucose 208 H POC Glucose 238 H Calcium Phosphorus Magnesium AST ALT Total Creatine Kinase CK-MB (CK-2) Troponin T Total Protein Albumin HDL Cholesterol TSH Free T3 Index Arterial Blood Glucose 217 H Arterial Blood Ionized Calcium Urine pH Urine WBC (Auto) Urine Creatinine Acetaminophen 04/29/21 04/29/21 04/29/21 04:22 05:08 11:26 WBC 15.2 H RBC 3.30 L Hgb 9.8 L Hct MCV RDW Plt Count Lymph % (Auto) Seg Neutrophils % Seg Neuts % (Manual) Lymphocytes % (Manual) Monocytes % (Manual) Seg Neutrophils # Seg Neutrophils # Man Lymphocytes # (Manual) Monocytes # (Manual) ABG pH POC ABG pCO2 POC ABG pO2 ABG Hemoglobin ABG Oxyhemoglobin ABG Sodium ABG Potassium ABG Chloride ABG Glucose Carboxyhemoglobin Sodium Potassium Chloride BUN Creatinine Glucose POC Glucose 181 H 218 H Calcium Phosphorus Magnesium AST ALT Total Creatine Kinase CK-MB (CK-2) Troponin T Total Protein Albumin HDL Cholesterol TSH Free T3 Index Arterial Blood Glucose Arterial Blood Ionized Calcium Urine pH Urine WBC (Auto) Urine Creatinine Acetaminophen 04/29/21 04/29/21 04/30/21 17:06 23:06 03:58 WBC RBC Hgb Hct MCV RDW Plt Count Lymph % (Auto) Seg Neutrophils % Seg Neuts % (Manual) Lymphocytes % (Manual) Monocytes % (Manual) Seg Neutrophils # Seg Neutrophils # Man Lymphocytes # (Manual) Monocytes # (Manual) ABG pH 7.547 H POC ABG pCO2 31.3 L POC ABG pO2 58.4 L ABG Hemoglobin 9.6 L ABG Oxyhemoglobin 91.1 L ABG Sodium ABG Potassium ABG Chloride 108.0 H ABG Glucose 248 H Carboxyhemoglobin 0.2 L Sodium Potassium Chloride BUN Creatinine Glucose POC Glucose 223 H 252 H Calcium Phosphorus Magnesium AST ALT Total Creatine Kinase CK-MB (CK-2) Troponin T Total Protein Albumin HDL Cholesterol TSH Free T3 Index Arterial Blood Glucose 248 H Arterial Blood Ionized Calcium Urine pH Urine WBC (Auto) Urine Creatinine Acetaminophen 04/30/21 04/30/21 04/30/21 05:23 05:54 11:47 WBC RBC Hgb Hct MCV RDW Plt Count Lymph % (Auto) Seg Neutrophils % Seg Neuts % (Manual) Lymphocytes % (Manual) Monocytes % (Manual) Seg Neutrophils # Seg Neutrophils # Man Lymphocytes # (Manual) Monocytes # (Manual) ABG pH POC ABG pCO2 POC ABG pO2 ABG Hemoglobin ABG Oxyhemoglobin ABG Sodium ABG Potassium ABG Chloride ABG Glucose Carboxyhemoglobin Sodium Potassium Chloride BUN 118 H Creatinine 3.3 H Glucose 263 H POC Glucose 244 H 237 H Calcium Phosphorus Magnesium AST ALT Total Creatine Kinase CK-MB (CK-2) Troponin T Total Protein Albumin HDL Cholesterol TSH Free T3 Index Arterial Blood Glucose Arterial Blood Ionized Calcium Urine pH Urine WBC (Auto) Urine Creatinine Acetaminophen 04/30/21 04/30/21 04/30/21 17:26 17:45 23:51 WBC RBC Hgb Hct MCV RDW Plt Count Lymph % (Auto) Seg Neutrophils % Seg Neuts % (Manual) Lymphocytes % (Manual) Monocytes % (Manual) Seg Neutrophils # Seg Neutrophils # Man Lymphocytes # (Manual) Monocytes # (Manual) ABG pH POC ABG pCO2 POC ABG pO2 ABG Hemoglobin ABG Oxyhemoglobin ABG Sodium ABG Potassium ABG Chloride ABG Glucose Carboxyhemoglobin Sodium Potassium Chloride BUN Creatinine Glucose POC Glucose 193 H 197 H Calcium Phosphorus Magnesium AST ALT Total Creatine Kinase CK-MB (CK-2) Troponin T Total Protein Albumin HDL Cholesterol TSH Free T3 Index Arterial Blood Glucose Arterial Blood Ionized Calcium Urine pH Urine WBC (Auto) 48.0 H Urine Creatinine Acetaminophen 05/01/21 05/01/21 05/01/21 04:02 04:57 07:11 WBC 12.3 H RBC 2.83 L Hgb 8.8 L Hct 27.3 L MCV RDW Plt Count Lymph % (Auto) Seg Neutrophils % Seg Neuts % (Manual) 80.0 H Lymphocytes % (Manual) 5.0 L Monocytes % (Manual) Seg Neutrophils # Seg Neutrophils # Man 9.8 H Lymphocytes # (Manual) 0.6 L Monocytes # (Manual) ABG pH 7.466 H POC ABG pCO2 POC ABG pO2 61.4 L ABG Hemoglobin 9.0 L ABG Oxyhemoglobin 91.1 L ABG Sodium ABG Potassium ABG Chloride 110.0 H ABG Glucose 245 H Carboxyhemoglobin Sodium Potassium Chloride BUN Creatinine Glucose POC Glucose 193 H Calcium Phosphorus Magnesium AST ALT Total Creatine Kinase CK-MB (CK-2) Troponin T Total Protein Albumin HDL Cholesterol TSH Free T3 Index Arterial Blood Glucose 245 H Arterial Blood Ionized Calcium Urine pH Urine WBC (Auto) Urine Creatinine Acetaminophen 05/01/21 05/01/21 05/01/21 07:11 07:45 11:30 WBC RBC Hgb Hct MCV RDW Plt Count Lymph % (Auto) Seg Neutrophils % Seg Neuts % (Manual) Lymphocytes % (Manual) Monocytes % (Manual) Seg Neutrophils # Seg Neutrophils # Man Lymphocytes # (Manual) Monocytes # (Manual) ABG pH POC ABG pCO2 POC ABG pO2 ABG Hemoglobin ABG Oxyhemoglobin ABG Sodium ABG Potassium ABG Chloride ABG Glucose Carboxyhemoglobin Sodium 146 H Potassium Chloride 108.4 H BUN 122 H Creatinine 3.4 H Glucose 235 H POC Glucose 212 H 247 H Calcium Phosphorus Magnesium AST ALT Total Creatine Kinase CK-MB (CK-2) Troponin T Total Protein Albumin HDL Cholesterol TSH Free T3 Index Arterial Blood Glucose Arterial Blood Ionized Calcium Urine pH Urine WBC (Auto) Urine Creatinine Acetaminophen 05/01/21 05/01/21 05/01/21 11:31 17:42 23:49 WBC RBC Hgb Hct MCV RDW Plt Count Lymph % (Auto) Seg Neutrophils % Seg Neuts % (Manual) Lymphocytes % (Manual) Monocytes % (Manual) Seg Neutrophils # Seg Neutrophils # Man Lymphocytes # (Manual) Monocytes # (Manual) ABG pH POC ABG pCO2 POC ABG pO2 ABG Hemoglobin ABG Oxyhemoglobin ABG Sodium ABG Potassium ABG Chloride ABG Glucose Carboxyhemoglobin Sodium Potassium Chloride BUN Creatinine Glucose POC Glucose 258 H 171 H 167 H Calcium Phosphorus Magnesium AST ALT Total Creatine Kinase CK-MB (CK-2) Troponin T Total Protein Albumin HDL Cholesterol TSH Free T3 Index Arterial Blood Glucose Arterial Blood Ionized Calcium Urine pH Urine WBC (Auto) Urine Creatinine Acetaminophen 05/02/21 05/02/21 05/02/21 05:12 08:34 11:53 WBC RBC Hgb Hct MCV RDW Plt Count Lymph % (Auto) Seg Neutrophils % Seg Neuts % (Manual) Lymphocytes % (Manual) Monocytes % (Manual) Seg Neutrophils # Seg Neutrophils # Man Lymphocytes # (Manual) Monocytes # (Manual) ABG pH POC ABG pCO2 POC ABG pO2 ABG Hemoglobin ABG Oxyhemoglobin ABG Sodium ABG Potassium ABG Chloride ABG Glucose Carboxyhemoglobin Sodium 148 H Potassium Chloride 110.4 H BUN 124 H Creatinine 3.4 H Glucose 208 H POC Glucose 163 H 185 H Calcium 8.3 L Phosphorus Magnesium AST ALT Total Creatine Kinase CK-MB (CK-2) Troponin T Total Protein Albumin HDL Cholesterol TSH Free T3 Index Arterial Blood Glucose Arterial Blood Ionized Calcium Urine pH Urine WBC (Auto) Urine Creatinine Acetaminophen 05/02/21 05/02/21 05/03/21 17:28 23:32 03:57 WBC RBC Hgb Hct MCV RDW Plt Count Lymph % (Auto) Seg Neutrophils % Seg Neuts % (Manual) Lymphocytes % (Manual) Monocytes % (Manual) Seg Neutrophils # Seg Neutrophils # Man Lymphocytes # (Manual) Monocytes # (Manual) ABG pH 7.531 H POC ABG pCO2 31.0 L POC ABG pO2 64.3 L ABG Hemoglobin 9.0 L ABG Oxyhemoglobin 92.6 L ABG Sodium 145.7 H ABG Potassium ABG Chloride 112.0 H ABG Glucose 202 H Carboxyhemoglobin Sodium Potassium Chloride BUN Creatinine Glucose POC Glucose 147 H 202 H Calcium Phosphorus Magnesium AST ALT Total Creatine Kinase CK-MB (CK-2) Troponin T Total Protein Albumin HDL Cholesterol TSH Free T3 Index Arterial Blood Glucose 202 H Arterial Blood Ionized Calcium Urine pH Urine WBC (Auto) Urine Creatinine Acetaminophen 05/03/21 05/03/21 05/03/21 05:14 05:44 11:10 WBC RBC Hgb Hct MCV RDW Plt Count Lymph % (Auto) Seg Neutrophils % Seg Neuts % (Manual) Lymphocytes % (Manual) Monocytes % (Manual) Seg Neutrophils # Seg Neutrophils # Man Lymphocytes # (Manual) Monocytes # (Manual) ABG pH POC ABG pCO2 POC ABG pO2 ABG Hemoglobin ABG Oxyhemoglobin ABG Sodium ABG Potassium ABG Chloride ABG Glucose Carboxyhemoglobin Sodium 147 H Potassium Chloride 109.7 H BUN 121 H Creatinine 3.1 H Glucose 190 H POC Glucose 175 H 202 H Calcium Phosphorus Magnesium AST ALT Total Creatine Kinase CK-MB (CK-2) Troponin T Total Protein Albumin HDL Cholesterol TSH Free T3 Index Arterial Blood Glucose Arterial Blood Ionized Calcium Urine pH Urine WBC (Auto) Urine Creatinine Acetaminophen 05/03/21 05/04/21 05/04/21 23:58 04:57 04:57 WBC RBC 2.61 L Hgb 8.2 L Hct 25.4 L MCV 98 H RDW 15.3 H Plt Count Lymph % (Auto) Seg Neutrophils % Seg Neuts % (Manual) Lymphocytes % (Manual) Monocytes % (Manual) Seg Neutrophils # Seg Neutrophils # Man Lymphocytes # (Manual) Monocytes # (Manual) ABG pH POC ABG pCO2 POC ABG pO2 ABG Hemoglobin ABG Oxyhemoglobin ABG Sodium ABG Potassium ABG Chloride ABG Glucose Carboxyhemoglobin Sodium 147 H Potassium Chloride 111.0 H BUN 104 H Creatinine 2.8 H Glucose 179 H POC Glucose 131 H Calcium Phosphorus Magnesium AST ALT Total Creatine Kinase CK-MB (CK-2) Troponin T Total Protein Albumin HDL Cholesterol TSH Free T3 Index Arterial Blood Glucose Arterial Blood Ionized Calcium Urine pH Urine WBC (Auto) Urine Creatinine Acetaminophen 05/04/21 05/04/21 05/04/21 05:19 11:28 17:02 WBC RBC Hgb Hct MCV RDW Plt Count Lymph % (Auto) Seg Neutrophils % Seg Neuts % (Manual) Lymphocytes % (Manual) Monocytes % (Manual) Seg Neutrophils # Seg Neutrophils # Man Lymphocytes # (Manual) Monocytes # (Manual) ABG pH POC ABG pCO2 POC ABG pO2 ABG Hemoglobin ABG Oxyhemoglobin ABG Sodium ABG Potassium ABG Chloride ABG Glucose Carboxyhemoglobin Sodium Potassium Chloride BUN Creatinine Glucose POC Glucose 168 H 206 H 213 H Calcium Phosphorus Magnesium AST ALT Total Creatine Kinase CK-MB (CK-2) Troponin T Total Protein Albumin HDL Cholesterol TSH Free T3 Index Arterial Blood Glucose Arterial Blood Ionized Calcium Urine pH Urine WBC (Auto) Urine Creatinine Acetaminophen 05/04/21 05/05/21 05/05/21 23:13 04:55 05:15 WBC RBC Hgb Hct MCV RDW Plt Count Lymph % (Auto) Seg Neutrophils % Seg Neuts % (Manual) Lymphocytes % (Manual) Monocytes % (Manual) Seg Neutrophils # Seg Neutrophils # Man Lymphocytes # (Manual) Monocytes # (Manual) ABG pH POC ABG pCO2 POC ABG pO2 ABG Hemoglobin ABG Oxyhemoglobin ABG Sodium ABG Potassium ABG Chloride ABG Glucose Carboxyhemoglobin Sodium Potassium Chloride BUN 91 H Creatinine 2.4 H Glucose 255 H POC Glucose 232 H 235 H Calcium Phosphorus Magnesium AST ALT Total Creatine Kinase CK-MB (CK-2) Troponin T Total Protein Albumin HDL Cholesterol TSH Free T3 Index Arterial Blood Glucose Arterial Blood Ionized Calcium Urine pH Urine WBC (Auto) Urine Creatinine Acetaminophen 05/05/21 05/05/21 05/05/21 11:41 17:46 23:40 WBC RBC Hgb Hct MCV RDW Plt Count Lymph % (Auto) Seg Neutrophils % Seg Neuts % (Manual) Lymphocytes % (Manual) Monocytes % (Manual) Seg Neutrophils # Seg Neutrophils # Man Lymphocytes # (Manual) Monocytes # (Manual) ABG pH POC ABG pCO2 POC ABG pO2 ABG Hemoglobin ABG Oxyhemoglobin ABG Sodium ABG Potassium ABG Chloride ABG Glucose Carboxyhemoglobin Sodium Potassium Chloride BUN Creatinine Glucose POC Glucose 199 H 231 H 224 H Calcium Phosphorus Magnesium AST ALT Total Creatine Kinase CK-MB (CK-2) Troponin T Total Protein Albumin HDL Cholesterol TSH Free T3 Index Arterial Blood Glucose Arterial Blood Ionized Calcium Urine pH Urine WBC (Auto) Urine Creatinine Acetaminophen 0605/06/21 05/06/21 04:00 05:37 07:12 WBC RBC Hgb Hct MCV RDW Plt Count Lymph % (Auto) Seg Neutrophils % Seg Neuts % (Manual) Lymphocytes % (Manual) Monocytes % (Manual) Seg Neutrophils # Seg Neutrophils # Man Lymphocytes # (Manual) Monocytes # (Manual) ABG pH 7.464 H POC ABG pCO2 POC ABG pO2 74.2 L ABG Hemoglobin 10.5 L ABG Oxyhemoglobin ABG Sodium ABG Potassium ABG Chloride 110.0 H ABG Glucose 214 H Carboxyhemoglobin 0.4 L Sodium 146 H Potassium Chloride 110.4 H BUN 82 H Creatinine 2.3 H Glucose 154 H POC Glucose 165 H Calcium Phosphorus Magnesium AST ALT Total Creatine Kinase CK-MB (CK-2) Troponin T Total Protein Albumin HDL Cholesterol TSH Free T3 Index Arterial Blood Glucose 214 H Arterial Blood Ionized Calcium Urine pH Urine WBC (Auto) Urine Creatinine Acetaminophen 05/06/21 05/06/21 05/07/21 17:11 23:40 05:26 WBC RBC Hgb Hct MCV RDW Plt Count Lymph % (Auto) Seg Neutrophils % Seg Neuts % (Manual) Lymphocytes % (Manual) Monocytes % (Manual) Seg Neutrophils # Seg Neutrophils # Man Lymphocytes # (Manual) Monocytes # (Manual) ABG pH POC ABG pCO2 POC ABG pO2 ABG Hemoglobin ABG Oxyhemoglobin ABG Sodium ABG Potassium ABG Chloride ABG Glucose Carboxyhemoglobin Sodium Potassium Chloride BUN Creatinine Glucose POC Glucose 126 H 165 H 156 H Calcium Phosphorus Magnesium AST ALT Total Creatine Kinase CK-MB (CK-2) Troponin T Total Protein Albumin HDL Cholesterol TSH Free T3 Index Arterial Blood Glucose Arterial Blood Ionized Calcium Urine pH Urine WBC (Auto) Urine Creatinine Acetaminophen 05/07/21 05/07/21 05/07/21 08:20 08:20 11:35 WBC RBC 2.58 L Hgb 7.9 L Hct 24.9 L MCV RDW Plt Count Lymph % (Auto) Seg Neutrophils % Seg Neuts % (Manual) Lymphocytes % (Manual) Monocytes % (Manual) Seg Neutrophils # Seg Neutrophils # Man Lymphocytes # (Manual) Monocytes # (Manual) ABG pH POC ABG pCO2 POC ABG pO2 ABG Hemoglobin ABG Oxyhemoglobin ABG Sodium ABG Potassium ABG Chloride ABG Glucose Carboxyhemoglobin Sodium Potassium Chloride 108.4 H BUN 81 H Creatinine 2.4 H Glucose 133 H POC Glucose 112 H Calcium Phosphorus Magnesium AST ALT Total Creatine Kinase CK-MB (CK-2) Troponin T Total Protein Albumin HDL Cholesterol TSH Free T3 Index Arterial Blood Glucose Arterial Blood Ionized Calcium Urine pH Urine WBC (Auto) Urine Creatinine Acetaminophen 05/07/21 05/07/21 05/08/21 17:51 23:27 03:05 WBC RBC Hgb Hct MCV RDW Plt Count Lymph % (Auto) Seg Neutrophils % Seg Neuts % (Manual) Lymphocytes % (Manual) Monocytes % (Manual) Seg Neutrophils # Seg Neutrophils # Man Lymphocytes # (Manual) Monocytes # (Manual) ABG pH 7.454 H POC ABG pCO2 POC ABG pO2 82.1 L ABG Hemoglobin 8.1 L ABG Oxyhemoglobin ABG Sodium ABG Potassium 4.8 H ABG Chloride 111.0 H ABG Glucose 194 H Carboxyhemoglobin Sodium Potassium Chloride BUN Creatinine Glucose POC Glucose 136 H 133 H Calcium Phosphorus Magnesium AST ALT Total Creatine Kinase CK-MB (CK-2) Troponin T Total Protein Albumin HDL Cholesterol TSH Free T3 Index Arterial Blood Glucose 194 H Arterial Blood Ionized Calcium Urine pH Urine WBC (Auto) Urine Creatinine Acetaminophen 05/08/21 05/08/21 05/08/21 05:52 07:07 07:07 WBC 12.0 H RBC 2.94 L Hgb 9.0 L Hct 28.5 L MCV RDW Plt Count Lymph % (Auto) Seg Neutrophils % Seg Neuts % (Manual) Lymphocytes % (Manual) Monocytes % (Manual) Seg Neutrophils # Seg Neutrophils # Man Lymphocytes # (Manual) Monocytes # (Manual) ABG pH POC ABG pCO2 POC ABG pO2 ABG Hemoglobin ABG Oxyhemoglobin ABG Sodium ABG Potassium ABG Chloride ABG Glucose Carboxyhemoglobin Sodium Potassium Chloride BUN 73 H Creatinine 2.2 H Glucose 211 H POC Glucose 194 H Calcium Phosphorus Magnesium AST ALT Total Creatine Kinase CK-MB (CK-2) Troponin T Total Protein Albumin HDL Cholesterol TSH Free T3 Index Arterial Blood Glucose Arterial Blood Ionized Calcium Urine pH Urine WBC (Auto) Urine Creatinine Acetaminophen 05/08/21 11:19 WBC RBC Hgb Hct MCV RDW Plt Count Lymph % (Auto) Seg Neutrophils % Seg Neuts % (Manual) Lymphocytes % (Manual) Monocytes % (Manual) Seg Neutrophils # Seg Neutrophils # Man Lymphocytes # (Manual) Monocytes # (Manual) ABG pH POC ABG pCO2 POC ABG pO2 ABG Hemoglobin ABG Oxyhemoglobin ABG Sodium ABG Potassium ABG Chloride ABG Glucose Carboxyhemoglobin Sodium Potassium Chloride BUN Creatinine Glucose POC Glucose 231 H Calcium Phosphorus Magnesium AST ALT Total Creatine Kinase CK-MB (CK-2) Troponin T Total Protein Albumin HDL Cholesterol TSH Free T3 Index Arterial Blood Glucose Arterial Blood Ionized Calcium Urine pH Urine WBC (Auto) Urine Creatinine Acetaminophen Chest x-ray: image reviewed (trach tube in good position) Allied health notes reviewed: nursing
--- NOTE | 2021-05-08 14:06 | Progress Note ---
Assessment and Plan This is a 80-year-old female with HTN, DM, ND, breast CA s/p double mastectomy, TIA who presented with hypoglycemia, AMS who was admitted with SIRS, symptomatic bradycardia, acute metabolic encephalopathy, acute hypoxic respiratory failure, elevated TSH, hyperglycemia, hyponatremia, hypokalemia, ROJELIO and rhabdomyolysis Acute metabolic encephalopathy-persist Acute hypoxic respiratory failure (extubated 04/20)- Re-intubated secondary to S tridor and paradoxical breathing - s/p trach and PEG First-degree heart block Resolved ileus versus mechanical obstruction Acute kidney injury with vasomotor nephropathy UTI, Pseudomonas/ Earline Elevated TSH Mild rhabdomyolysis Hypertension Diabetes mellitus with hyperglycemia on admission CAD Hypothyroidism Chronic illness debilitymyopathy Obesity -CCM, nephrology, neurology, cardiology consulted, patient recommendations -S/p D10 and D5W gtt, on TF -S/p IV calcium gluconate, regular insulin, D50 -S/p transcutaneous pacing, intermittent demand pacer in place -Renal ultrasound findings consistent with acute on chronic kidney disease, mildly complex right renal cyst -Blood pressure monitoring per protocol -Accu-Cheks every 6, SSI, long acting insulin -IV hydralazine as needed -04/25 EEG is mildly abnormal with mild slowing noted throughout the recording, suggestive of mild cortical dysfunction and/or drug effect -04/20 EEG shows mildly abnormal record due to diffuse background slowing noted throughout the recording, intermittent motion artifact, patient intubated and sedated at time of study, no sign of seizures as well epilepticus noted, possible toxic metabolic encephalopathy, drug effect, possible postictal state cannot be totally excluded. -Avoid ACEi/ARB in setting of ROJELIO -Avoid AV arron blocking agents -Avoid nephrotoxic agents and renally dose medications -BB, add home antihtn regimen as needed -TSH 14.1, T4 4.1, T3 1.1-started on levothyroxine -As needed racemic epinephrine -S/p steroids -s/p Antibiotic therapy -Trend CBC, BMP DVT/GI prophylaxis: Heparin subcu, PPI, SCDs to bilateral lower extremities while in bed Disposition: ICU The high probability of a clinically significant, sudden or life threatening deterioration of the [PULMONARY, CARDIAC, RENAL] system(s) required my full and direct attention, intervention and personal management. The aggregate critical care time was [35] minutes. This time is in addition to time spent performing reported procedures but includes the following: [X] Data Review and interpretation [X] Patient assessment and monitoring of vital signs [X] Documentation [X] Medication orders and management Brief history This is a 80-year-old female with hypertension, diabetes mellitus, ND, breast cancer s/p double mastectomy, and a TIA who presented with hypoglycemia and altered mental status on 04/15 via EMS. Per EMS patient was unresponsive on their arrival and her blood glucose was 38 and she received 1 amp of dextrose patient continued to be unresponsive and only moaned with her eyes deviating to the left. Work-up in the emergency department revealed SIRS, symptomatic bradycardia, acute metabolic encephalopathy, acute hypoxic respiratory failure, elevated TSH, hyperglycemia, hyponatremia, hyperkalemia, acute kidney injury with ATN, and rhabdomyolysis Daily clinical course; 04/16: Neurology consulted, COVID-19 PCR negative, D10 drip decreased and even tually discontinued by [facility] and started on D5W for 1 L. Hydralazine as needed. Patient had hyper kalemia today and was treated with D50, insulin and Kayexalate. This time examination patient is on assist control tidal volume 450, rate of 16, PEEP of 6 and 25% FiO2. 04/17: Patient started on low-dose beta-angel per cardiology, CPAP trial again per [facility], BUN/creatinine holding steady and hypochloremia/hyponatremia slightly improved and hypokalemia has resolved. This morning a KUB was obtained which was concerning for ileus versus mechanical obstruction and surgery was consulted. Patient was made n.p.o. and NG tube placed to wall suction. Patient was given suppository. Per RN patient did not have a BM even though she was given Kayexalate yesterday. Will obtain a KUB in the a.m. Neurology was consulted yesterday and will await further recommendations. Nephew updated at bedside today, Carlos Romero. 04/18: Neurology has ordered EEG/MRI B, [facility] continues to wean MV. Persistent low grade temperature so we will obtain BCx2/UA. Patient has improving leukocytosis, hyponatremia, renal function studies and hypochloremia. She has hypokalemia today which is being repleted. Surgery has signed off today and has okayed resumption of TF. [facility] will trial CPAP for longer today and plans to attempt extubation in AM. Family has requested transfer to [place] and Dr. Gordon will attempt to contact transfer center. I updated her nephew, Carlos Romero over the phone today abouyt current events and update on transfer ([place] will conduct a utilization review) 04/19: This morning patient is on CPAP trial at the time of examination, noted to be hypertensive and metoprolol increased to home dose, started on synthroid by CCM, lantus started re hyperglycemia, MRI completed with no acute findings. Severe hypokalemia (repleted and Mg pending). CCM will contact CPAP trial again today with possible trial extubation tomorrow. 04/20: Patient's leukocytosis and kidney function tests continue to improve. Patient is hypertensive overnight we will restart home hydralazine. [facility] plans to extubate patient today. Family is attempting to transfer to another facility. EEG pending, RT will atmept to contact oxygen equipment technician. Urine culture grew gram negative rods. Increase in lantus 04/21: Increase in Lantus, repleted phos. Patient has started this afternoon and was given racemic epinephrine and started on steroids. Patient will have BiPAP as needed. We will recheck BMP in the a.m. renal function studies continues to decrease. Patient has been hypertensive on evaluation regimen has been changed. 04/22: Lantus increased for hyperglycemia and add amlodipine for better BP control. Patient is on steroids. OT suctioned by RN with catheter in oral care kit and received copious amounts of secretions. Cr continues to decrease. Culture grew Pseudomonas and was changed in accordance to sensitivity. Kerr removed today after clearance from nephrology. 04/23: MRI of the brain was done and unremarkable. Will obtain reconsult to nephrology for further assistance as patient remains in profound encephalopathy despite improvement of blood sugar. Will repeat chest x-ray as patient does have significant congestion physical exam. Tube feeds still ongoing. Continue aspiration precautions. Continue antibiotics when completed for Pseudomonas management 04/24: Neurology input noted, patient unfortunately with no improvement mental status [place], continues with congestion, will defer with Embroidery Assistant for lasix in the setting of renal failure. will give kayexlate for hyperkalemia, still moans and groans, mittens in place. 04/25: Patient currently intubated, on restraints for safety, Profund encephalopathy persist, although awake she is not following any commands, Call placed to [place] to see if they will accept transfer for ENT evaluation, while CT neck was negative, it was degraded by motion and unable to determent why patient had this stridor, Racemic Epinephrine was given, [place] is on ICU saturation, but will call back with an ENT to discuss case. Renal function mildly worse, continue to monitor. Per cardiology, no further arrhythmias noted since admission. Given short duration of atrial fibrillation, along with pt's age, renal fxn, and other co- morbidities,...will resume additional medical therapies for underlying severe multi-vessel CAD (bASA & Plavix). Pt has previously declined intervention of known lesions as per her Primary Hotel Server. 04/26: Now with febrile illness, ?developing infection, start on empiric abx, check lactate level, blood cultures, continue management per Shuttle Driver, Monitor leukocytosis, agree with Trach, family updated about denials in transfer request from outside hospitals. 04/27: WBC improving some, still with fever despite antibotics, ID consulted. CXR clear, continue current management, Trach will be planned if ok with family. Blood sugar remains elevated, will adjust insulin LANTUS to 40 units. Patient had previously completed Cefepime. Mental status remains unchanged, still moves upper ext. continue restraints 04/28: Continue supportive care. No new fever noted. Critical care physician will determine if patient should be have a trial of extubation again or if we should proceed straight to trach. Again continue to monitor mental status for complete improvement. 04/29: Per Shuttle Driver discussion with family, will proceed to Tracheostomy, Patients mental status still fluctuating, Continue current management. Surgeon consulted. 04/30: General surgery consulted for trach, continue to trend CBC and BMP. Kidney function slightly worsened today. Increase in Lantus. Tmax 100.2, per ID will consider imaging if leukocytosis remains elevated with fevers. Plavix held for possible tracheostomy next week. 05/01: Patient fever curve is trending down with improving leukocytosis. Patient renal function worsened today. She remains hyperglycemic and her Lantus was increased to her home dose of Novolin 70/30. Patient was rate controlled yesterday due to T-max of 101. She remains on CMV tidal volume 450, rate of 10, PEEP of 6 and 30% FiO2. We will increase the water flushes given slight hypernatremia. Dr. Andrea updated nephew (Carlos) at bedside. CPAP trails. 05/02: Patient's hypernatremia and hyperchloremia slightly worsened and femur fractures were increased. Kidney functions remain the same however BUN is in the 100s. Nephrology is following. Kerr catheter was removed. Awaiting trach placement with possibility on Friday. 05/03: Patient grew Earline in her urine culture however per ID and the Kerr was already exchanged. Patient is on cefepime and Flagyl. Plavix still on hold awaiting trach. CCM started the patient on half-normal saline at 75 mL/h for 2 L related to azatoma and hypernatremia. Patient mental status continues to wax and wane. Creatinine is 3.1 today from 3.4 yesterday. Patient had a bowel movement today. Patient remains hyperglycemic and Lantus was changed from a.m. to p.m.. 05/04: Patient's renal function is improving, surgery obtain consent for trach/PEG scheduled for 05/07, antibiotics to end tomorrow. We will obtain BMP in the a.m. Lantus dosage change from AC to at bedtime in hopes of better glycemic control. 05/05: Patient Lantus dose is changed to twice daily in hopes of better glycemic control. Awaiting surgical procedure hopefully on Friday. Patient's BUN/creatinine improved and hypernatremia has resolved. 05/06: Patient has slight hypernatremia and hyperchloremia and improvement to BUN/creatinine. Better glycemic control. Awaiting trach on Friday. NGT was displaced but now replaced and TF resumed. 05/07 This is a 80-year-old female with HTN, DM, ND, breast CA s/p double mastectomy, TIA who presented with hypoglycemia, AMS who was admitted with SIRS, symptomatic bradycardia, acute metabolic encephalopathy, acute hypoxic respiratory failure, elevated TSH, hyperglycemia, hyponatremia, hypokalemia, ROJELIO and rhabdomyolysis. She is for Trach and PEG today. 05/08: s/p trach and PEG placement yesterday. cont to monitor, wean off from vent as tolertaed Subjective Date of service: 05/08/21 Principal diagnosis: Ac. resp failure; AMS; Hypoglycemia; ROJELIO; Hyperkalemia; DM II Interval history: Patient seen and examined. Medical records and medication list reviewed. No acute event overnight noted by the RN. Patient remains on trach tube, plan to start tube feeding Discussed plan of care at bedside with patient's RN. Objective - Exam Narrative Exam: General appearance: Present: no acute distress, intubated on mechanical ventilation - EENT Eyes: Present: PERRL, EOM intact - Neck Neck: Present: normal ROM, trach in place - Respiratory Respiratory effort: normal Respiratory: bilateral: diminished - Cardiovascular Rhythm: regular Heart Sounds: Present: S1 & S2. Absent: systolic murmur, diastolic murmur - Extremities Extremities: no ischemia, pulses intact, pulses symmetrical, normal temperature, normal color Peripheral Pulses: within normal limits - Abdominal General gastrointestinal: soft, non-tender, non-distended, normal bowel sounds - Integumentary Integumentary: Present: warm, dry - Psychiatric Psychiatric: cooperative - Neurologic Neurologic: moves all extremities - Constitutional Vitals: Vital Signs - 12hr 05/08/21 05/08/21 05/08/21 03:00 03:12 03:53 Temperature Pulse Rate 76 78 Pulse Rate [ 77 Bilateral] Pulse Rate [ From Monitor] Respiratory 21 Rate Respiratory 18 Rate [Bilateral ] Blood Pressure 121/55 184/83 O2 Sat by Pulse 100 100 Oximetry O2 Sat by Pulse Oximetry [ Assessment] 05/08/21 05/08/21 05/08/21 04:00 04:01 05:00 Temperature 98.9 F Pulse Rate 81 83 Pulse Rate [ Bilateral] Pulse Rate [ 90 From Monitor] Respiratory 33 H 22 Rate Respiratory Rate [Bilateral ] Blood Pressure 164/56 175/60 O2 Sat by Pulse 100 100 Oximetry O2 Sat by Pulse 100 Oximetry [ Assessment] 05/08/21 05/08/21 05/08/21 06:00 06:06 07:00 Temperature Pulse Rate 88 85 87 Pulse Rate [ Bilateral] Pulse Rate [ From Monitor] Respiratory 21 19 Rate Respiratory Rate [Bilateral ] Blood Pressure 169/66 173/60 160/42 O2 Sat by Pulse 100 100 Oximetry O2 Sat by Pulse Oximetry [ Assessment] 05/08/21 05/08/21 05/08/21 07:07 07:36 07:43 Temperature 98.2 F Pulse Rate 85 84 Pulse Rate [ Bilateral] Pulse Rate [ From Monitor] Respiratory 31 H Rate Respiratory Rate [Bilateral ] Blood Pressure 141/54 141/54 O2 Sat by Pulse 100 100 Oximetry O2 Sat by Pulse Oximetry [ Assessment] 05/08/21 05/08/21 05/08/21 07:46 08:00 09:00 Temperature Pulse Rate 87 91 H Pulse Rate [ 85 Bilateral] Pulse Rate [ 90 From Monitor] Respiratory 21 31 H Rate Respiratory 25 H Rate [Bilateral ] Blood Pressure 148/49 147/48 O2 Sat by Pulse 100 100 Oximetry O2 Sat by Pulse Oximetry [ Assessment] 05/08/21 05/08/21 05/08/21 09:42 09:45 10:00 Temperature Pulse Rate 90 92 H 92 H Pulse Rate [ Bilateral] Pulse Rate [ From Monitor] Respiratory 33 H Rate Respiratory Rate [Bilateral ] Blood Pressure 133/49 133/49 164/59 O2 Sat by Pulse 100 Oximetry O2 Sat by Pulse Oximetry [ Assessment] 05/08/21 05/08/21 05/08/21 11:00 12:00 12:09 Temperature 97.9 F Pulse Rate 84 86 Pulse Rate [ Bilateral] Pulse Rate [ From Monitor] Respiratory 29 H 25 H Rate Respiratory Rate [Bilateral ] Blood Pressure 147/56 134/50 O2 Sat by Pulse 100 100 Oximetry O2 Sat by Pulse Oximetry [ Assessment] 05/08/21 05/08/21 13:08 13:10 Temperature Pulse Rate 86 Pulse Rate [ 87 Bilateral] Pulse Rate [ From Monitor] Respiratory Rate Respiratory 29 H Rate [Bilateral ] Blood Pressure 129/45 O2 Sat by Pulse Oximetry O2 Sat by Pulse Oximetry [ Assessment] - Labs CBC & Chem 7: 05/08/21 07:07 05/12/21 04:51 Labs: Abnormal lab results 05/07/21 05/07/21 05/08/21 Range/Units 17:51 23:27 03:05 WBC (4.5-11.0) K/mm3 RBC (3.65-5.03) M/mm3 Hgb (10.1-14.3) gm/dl Hct (30.3-42.9) % ABG pH 7.454 H (7.320-7.450) POC ABG pO2 82.1 L (83-108) mmHg ABG Hemoglobin 8.1 L (12.0-17.5) ABG Potassium 4.8 H (3.40-4.50) mmol/L ABG Chloride 111.0 H (98-107) mmol/L ABG Glucose 194 H (65-95) mg/dL BUN (7-17) mg/dL Creatinine (0.6-1.2) mg/dL Glucose (65-100) mg/dL POC Glucose 136 H 133 H (70-105) mg/dL Arterial Blood Glucose 194 H (65-95) mg/dL 05/08/21 05/08/21 05/08/21 Range/Units 05:52 07:07 07:07 WBC 12.0 H (4.5-11.0) K/mm3 RBC 2.94 L (3.65-5.03) M/mm3 Hgb 9.0 L (10.1-14.3) gm/dl Hct 28.5 L (30.3-42.9) % ABG pH (7.320-7.450) POC ABG pO2 (83-108) mmHg ABG Hemoglobin (12.0-17.5) ABG Potassium (3.40-4.50) mmol/L ABG Chloride (98-107) mmol/L ABG Glucose (65-95) mg/dL BUN 73 H (7-17) mg/dL Creatinine 2.2 H (0.6-1.2) mg/dL Glucose 211 H (65-100) mg/dL POC Glucose 194 H (70-105) mg/dL Arterial Blood Glucose (65-95) mg/dL 05/08/21 Range/Units 11:19 WBC (4.5-11.0) K/mm3 RBC (3.65-5.03) M/mm3 Hgb (10.1-14.3) gm/dl Hct (30.3-42.9) % ABG pH (7.320-7.450) POC ABG pO2 (83-108) mmHg ABG Hemoglobin (12.0-17.5) ABG Potassium (3.40-4.50) mmol/L ABG Chloride (98-107) mmol/L ABG Glucose (65-95) mg/dL BUN (7-17) mg/dL Creatinine (0.6-1.2) mg/dL Glucose (65-100) mg/dL POC Glucose 231 H (70-105) mg/dL Arterial Blood Glucose (65-95) mg/dL HEART Score - HEART Score Troponin: Troponin T 0.065 ng/mL (0.00-0.029) H 04/20/21 03:32
--- NOTE | 2021-05-08 14:20 | Progress Note ---
Assessment and Plan 1. Acute kidney injury: Vasomotor ROJELIO. ATN likely. Renal US negative for hydro. Baseline renal function is unknown. Monitor renal function. Non-oliguric. Creatinine level continue to improved. Renal prognosis is guarded. Avoid nephrotoxic agents. Meds dosage based on GFR. 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 2. FEN: Hypokalemia, improved, monitor. Hypernatremia, improved, monitor. Monitor lytes and volume status. 3. Acute hypoxemic respiratory failure: Extubated, re-intubated 04/24. Trached 05/07. 4. Acute encephalopathy: MRI brain negative. Seen by Neuro. 5. UTI: Pseudomonas and Earline. 6. Hypertension. 7. DM type 2. 8. Mild rhabdomyolysis. 9. Mildly complex R renal cyst. Subjective: Patient was seen and examined at the bedside. Examination: General appearance: well-developed, appears stated age, tarched on vent HEENT: atraumatic Neck: trached Respiratory: Coarse breath sounds heard Heart: S1S2, no murmur Abdomen: soft, obese, bowel sounds heard, NT, PEG tube noted Integumentary: no obvious rash Neurologic: stuporous Ext: no edema noted : Kerr catheter Subjective Date of service: 05/08/21 Principal diagnosis: Ac. resp failure; AMS; Hypoglycemia; ROJELIO; Hyperkalemia; DM II Objective - Vital Signs Vital signs: Vital Signs - 12hr 05/08/21 05/08/21 05/08/21 03:00 03:12 03:53 Temperature Pulse Rate 76 78 Pulse Rate [ 77 Bilateral] Pulse Rate [ From Monitor] Respiratory 21 Rate Respiratory 18 Rate [Bilateral ] Blood Pressure 121/55 184/83 O2 Sat by Pulse 100 100 Oximetry O2 Sat by Pulse Oximetry [ Assessment] 05/08/21 05/08/21 05/08/21 04:00 04:01 05:00 Temperature 98.9 F Pulse Rate 81 83 Pulse Rate [ Bilateral] Pulse Rate [ 90 From Monitor] Respiratory 33 H 22 Rate Respiratory Rate [Bilateral ] Blood Pressure 164/56 175/60 O2 Sat by Pulse 100 100 Oximetry O2 Sat by Pulse 100 Oximetry [ Assessment] 05/08/21 05/08/21 05/08/21 06:00 06:06 07:00 Temperature Pulse Rate 88 85 87 Pulse Rate [ Bilateral] Pulse Rate [ From Monitor] Respiratory 21 19 Rate Respiratory Rate [Bilateral ] Blood Pressure 169/66 173/60 160/42 O2 Sat by Pulse 100 100 Oximetry O2 Sat by Pulse Oximetry [ Assessment] 05/08/21 05/08/21 05/08/21 07:07 07:36 07:43 Temperature 98.2 F Pulse Rate 85 84 Pulse Rate [ Bilateral] Pulse Rate [ From Monitor] Respiratory 31 H Rate Respiratory Rate [Bilateral ] Blood Pressure 141/54 141/54 O2 Sat by Pulse 100 100 Oximetry O2 Sat by Pulse Oximetry [ Assessment] 05/08/21 05/08/21 05/08/21 07:46 08:00 09:00 Temperature Pulse Rate 87 91 H Pulse Rate [ 85 Bilateral] Pulse Rate [ 90 From Monitor] Respiratory 21 31 H Rate Respiratory 25 H Rate [Bilateral ] Blood Pressure 148/49 147/48 O2 Sat by Pulse 100 100 Oximetry O2 Sat by Pulse Oximetry [ Assessment] 05/08/21 05/08/21 05/08/21 09:42 09:45 10:00 Temperature Pulse Rate 90 92 H 92 H Pulse Rate [ Bilateral] Pulse Rate [ From Monitor] Respiratory 33 H Rate Respiratory Rate [Bilateral ] Blood Pressure 133/49 133/49 164/59 O2 Sat by Pulse 100 Oximetry O2 Sat by Pulse Oximetry [ Assessment] 05/08/21 05/08/21 05/08/21 11:00 12:00 12:09 Temperature 97.9 F Pulse Rate 84 86 Pulse Rate [ Bilateral] Pulse Rate [ From Monitor] Respiratory 29 H 25 H Rate Respiratory Rate [Bilateral ] Blood Pressure 147/56 134/50 O2 Sat by Pulse 100 100 Oximetry O2 Sat by Pulse Oximetry [ Assessment] 05/08/21 05/08/21 13:08 13:10 Temperature Pulse Rate 86 Pulse Rate [ 87 Bilateral] Pulse Rate [ From Monitor] Respiratory Rate Respiratory 29 H Rate [Bilateral ] Blood Pressure 129/45 O2 Sat by Pulse Oximetry O2 Sat by Pulse Oximetry [ Assessment] - Lab 05/08/21 07:07 05/08/21 07:07 Most recent lab results ABG pH 7.454 (7.320-7.450) H 05/08/21 03:05 ABG O2 Saturation 96.1 (0-100) 05/08/21 03:05 Calcium 9.8 mg/dL (8.4-10.2) 05/08/21 07:07 Phosphorus 2.60 mg/dL (2.5-4.5) 04/22/21 08:00 Magnesium 2.10 mg/dL (1.7-2.3) 04/23/21 07:02 Urine Creatinine 24.4 mg/dL (0.1-20.0) H 04/16/21 00:12 Urine Sodium 97 mmol/L 04/16/21 00:12 Medications & Allergies - Medications Allergies/Adverse Reactions: Allergies No Known Allergies Allergy (Unverified 04/15/21 17:41) Home Medications: Home Medications Medication Instructions Recorded Confirmed Last Taken Type Betaxolol HCl [Betoptic S 0.25% 1 drop OU BID 04/16/21 04/16/21 Unknown History SUSP] Bimatoprost [Lumigan 0.01%] 1 drop OU QPM 04/16/21 04/16/21 Unknown History Brimonidine Tartrate [Brimonidine 5 ml OU BID 04/16/21 04/16/21 Unknown History Tartrate 0.2%] Furosemide [Lasix TAB] 40 mg PO QDAY 04/16/21 04/16/21 Unknown History Gabapentin [Neurontin] 300 mg PO Q8HR 04/16/21 04/16/21 Unknown History HYDROcodone/APAP 10-325 [[place] 1 each PO Q6HR PRN 04/16/21 04/16/21 Unknown History 10/325] Hydralazine HCl 50 mg PO Q4HR 04/16/21 04/16/21 Unknown History Insulin Aspart Prot/Insuln Asp 52 units SQ HS 04/16/21 04/16/21 Unknown History [Novolog Mix 70-30 Flexpen] Metoprolol [Lopressor] 25 mg PO BID 04/16/21 04/16/21 Unknown History Pravastatin [Pravachol] 20 mg PO QHS 04/16/21 04/16/21 Unknown History Promethazine [Phenergan] 25 mg PO Q6HR 04/16/21 04/16/21 Unknown History allopurinoL [Zyloprim] 150 mg PO QDAY 04/16/21 04/16/21 Unknown History Active Medications: Generic Name Dose Route Start Last Admin Trade Name Freq PRN Reason Stop Dose Admin Acetaminophen 650 mg 04/15/21 19:11 04/30/21 20:14 Acetaminophen 325 Mg Tab PO 650 mg Q6H PRN Administration Pain MILD(1-3)/Fever >100.5/SEXTON Albuterol/Ipratropium 1 ampul 04/24/21 14:00 05/08/21 13:10 Ipratropium/Albuterol Sulfate 3 Ml Ampul.Neb IH 1 ampul Q6HRT WOLFGANG Administration Amlodipine Besylate 10 mg 04/25/21 10:00 05/08/21 09:45 Amlodipine 10 Mg Tab PO 10 mg DAILY WOLFGANG Administration Lipase/Protease/Amylase 1 each 04/16/21 12:52 Lipase 10,500/Protease 25,000/Amylase 43,750 (Units) Dr Simpson FEEDTUBE PRN PRN For Clogged Feeding Tube Aspirin 81 mg 04/25/21 10:00 05/08/21 09:42 Aspirin 81 Mg Tab Chew PO 81 mg QDAY WOLFGANG Administration Bisacodyl 10 mg 04/17/21 11:01 05/03/21 09:50 Bisacodyl 10 Mg Rect Supp MD 10 mg QDAY PRN Administration Constipation Brimonidine Tartrate 1 drops 04/17/21 22:00 05/08/21 09:44 Brimonidine 0.15% Ophth Soln OU 1 drops BID WOLFGANG Administration Docusate Sodium 100 mg 04/29/21 15:00 05/08/21 09:44 Docusate Sodium 100 Mg/10 Ml Oral Liqd PO 100 mg BID WOLFGANG Administration Epinephrine 0.5 ml 04/21/21 12:56 Epinephrine Racemic 2.25% 0.5ml Nebu IH Q4HRT PRN Shortness Of Breath Famotidine 20 mg 04/17/21 10:00 05/08/21 09:43 Famotidine 20 Mg Tab PO 20 mg DAILY WOLFGANG Administration Fentanyl 50 mcg 05/07/21 09:00 Fentanyl 100 Mcg/2 Ml Inj IV Q4H PRN Pain , Severe (7-10) Heparin Sodium (Porcine) 5,000 unit 04/15/21 22:00 05/08/21 09:45 Heparin 5,000 Unit/1 Ml Vial SUB-Q 5,000 unit Q12HR WOLFGANG Administration Hydralazine HCl 10 mg 04/16/21 18:00 04/24/21 05:25 Hydralazine 20 Mg/1 Ml Inj IV 10 mg Q4HR PRN Administration Hypertension Hydralazine HCl 50 mg 06/03/21 14:00 05/08/21 13:08 Hydralazine 25 Mg Tab PO 50 mg Q8HR WOLFGANG Administration Hydrophilic Ointment 1 applic 04/15/21 17:24 Lip Therapy Vaseline TP Q2HR PRN Dry Lips Insulin Human Isoph/Insulin Regular 25 unit 05/09/21 08:00 Insulin Nph/Regular 70/30 Inj SUB-Q BIDDIAB WOLFGANG Insulin Human Lispro 0 unit 04/16/21 15:00 05/08/21 11:39 Insulin Lispro 100 Unit/Ml SUB-Q 4 unit Q6HR WOLFGANG Administration Protocol Latanoprost 1 drops 04/17/21 18:00 05/07/21 18:42 Latanoprost 0.005% Ophth Soln 2.5 Ml OU 1 drops QPM WOLFGANG Administration Levothyroxine Sodium 25 mcg 04/19/21 06:00 05/08/21 06:06 Levothyroxine 25 Mcg Tab PO 25 mcg DAILY@0600 WOLFGANG Administration Metoprolol Tartrate 25 mg 04/19/21 10:00 05/08/21 09:42 Metoprolol Tartrate 25 Mg Tab PO 25 mg BID WOLFGANG Administration Multi-Ingred Cream/Lotion/Oil/Oint 1 applic 04/15/21 17:24 05/04/21 09:25 Mineral Oil/Petrolatum, White Ophth Oint 3.5 Gm OU 1 applic Q4HR PRN Administration Dry Eye(s) Pravastatin Sodium 20 mg 04/19/21 22:00 05/07/21 21:30 Pravastatin 20 Mg Tab PO 20 mg QHS WOLFGANG Administration Scopolamine 1 each 04/20/21 18:00 05/08/21 09:44 Scopolamine Transdermal Patch 72 Hr TD 1 each Q3D WOLFGANG Administration Simple Syrup 15 ml 04/16/21 12:52 Simple Syrup 15 Ml FEEDTUBE PRN PRN Hypoglycemia Simple Syrup 30 ml 04/16/21 12:52 Simple Syrup 15 Ml FEEDTUBE PRN PRN Hypoglycemia Sodium Bicarbonate 325 mg 04/16/21 12:52 Sodium Bicarbonate 325 Mg Tab FEEDTUBE PRN PRN For Clogged Feeding Tube Sodium Chloride 10 ml 04/15/21 22:00 05/08/21 09:46 Sodium Chloride 0.9% 10 Ml Flush Syringe IV 10 ml BID WOLFGANG Administration Sodium Chloride 10 ml 04/15/21 19:11 04/24/21 05:27 Sodium Chloride 0.9% 10 Ml Flush Syringe IV 10 ml PRN PRN Administration LINE FLUSH Tamsulosin HCl 0.4 mg 04/25/21 14:00 05/08/21 09:42 Tamsulosin 0.4 Mg Cap PO 0.4 mg QDAY WOLFGANG Administration Timolol Maleate 1 drops 04/19/21 10:00 05/08/21 09:44 Timolol 0.5% Ophth Soln 5 Ml OU 1 drops QDAY WOLFGANG Administration
--- NOTE | 2021-05-08 14:50 | Post Anesthesia Evaluation ---
- Post Anesthesia Evaluation Patient Participated: No Airway Patent: Yes Stable Respiratory Function: No Nausea/Vomiting: No Temp > 96.8F: Yes Pain Manageable: Yes Adequeate Hydration: Yes Anesthesia Complications: No Block Receding Appropriately: Not Applicable Patient on Ventilator: Yes
[2021-05-08] MEDS: LATANOPROST 0.005% OPHTH SOLN 2.5 ML OU SCH (18:19)
[2021-05-08] MEDS: PRAVASTATIN 20 MG TAB PO SCH (21:35)
[2021-05-09] MEDS: INSULIN LISPRO 100 UNIT/ML SUB-Q SCH ×4 (00:14→18:20)
[2021-05-09] MEDS: IPRATROPIUM/ALBUTEROL SULFATE 3 ML AMPUL.NEB IH SCH ×2 (01:52→08:02)
[2021-05-09] MEDS: LEVOTHYROXINE 25 MCG TAB PO SCH (06:51)
[2021-05-09] MEDS: hydrALAZINE 25 MG TAB PO SCH ×3 (06:51→21:09)
[2021-05-09 08:37] LABS: Calcium 9.6 mg/dL (8.4-10.2)
[2021-05-09] MEDS: INSULIN NPH/REGULAR 70/30 INJ SUB-Q SCH ×2 (09:00→18:00)
[2021-05-09] MEDS: HEPARIN 5,000 UNIT/1 ML VIAL SUB-Q SCH ×2 (10:03→21:07)
[2021-05-09] MEDS: FAMOTIDINE 20 MG TAB PO SCH (10:03)
[2021-05-09] MEDS: METOPROLOL TARTRATE 25 MG TAB PO SCH ×2 (10:03→21:09)
[2021-05-09] MEDS: TAMSULOSIN 0.4 MG CAP PO SCH (10:04)
[2021-05-09] MEDS: ASPIRIN 81 MG TAB CHEW PO SCH (10:04)
[2021-05-09] MEDS: BRIMONIDINE 0.15% OPHTH SOLN OU SCH ×2 (10:05→21:09)
[2021-05-09] MEDS: TIMOLOL 0.5% OPHTH SOLN 5 ML OU SCH (10:05)
[2021-05-09] MEDS: DOCUSATE SODIUM 100 MG/10 ML ORAL LIQD PO SCH ×2 (10:07→21:07)
[2021-05-09] MEDS: amLODIPine 10 MG TAB PO SCH (10:07)
--- NOTE | 2021-05-09 10:49 | Progress Note ---
Assessment and Plan 1. Acute kidney injury: Vasomotor ROJELIO. ATN likely. Renal US negative for hydro. Baseline renal function is unknown. Monitor renal function. Non-oliguric. BUN / Creatinine level continue to improve. Renal prognosis is guarded. Avoid nephrotoxic agents. Meds dosage based on GFR. 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 2. FEN: Hypokalemia, improved, monitor. Hypernatremia, improved, monitor. Monitor lytes and volume status. 3. Acute hypoxemic respiratory failure: Extubated, re-intubated 04/24. Trached 05/07. 4. Acute encephalopathy: MRI brain negative. Seen by Neuro. 5. UTI: Pseudomonas and Earline. 6. Hypertension. 7. DM type 2. 8. Mild rhabdomyolysis. 9. Mildly complex R renal cyst. Subjective: Patient was seen and examined at the bedside. Examination: General appearance: well-developed, appears stated age, tarched on vent HEENT: atraumatic Neck: trached Respiratory: Coarse breath sounds heard Heart: S1S2, no murmur Abdomen: soft, obese, bowel sounds heard, NT, PEG tube noted Integumentary: no obvious rash Neurologic: stuporous Ext: no edema noted : Kerr catheter Subjective Date of service: 05/09/21 Principal diagnosis: Ac. resp failure; AMS; Hypoglycemia; ROJELIO; Hyperkalemia; DM II Objective - Vital Signs Vital signs: Vital Signs - 12hr 05/08/21 05/08/21 05/09/21 23:00 23:39 00:00 Temperature 98.8 F Pulse Rate 83 78 Pulse Rate [ Bilateral] Pulse Rate [ 82 From Monitor] Respiratory 20 25 H Rate Respiratory Rate [Bilateral ] Blood Pressure 121/61 O2 Sat by Pulse 100 100 Oximetry 05/09/21 05/09/21 05/09/21 00:01 00:30 01:00 Temperature Pulse Rate 82 86 82 Pulse Rate [ Bilateral] Pulse Rate [ From Monitor] Respiratory 25 H 21 Rate Respiratory Rate [Bilateral ] Blood Pressure 149/42 138/57 135/51 O2 Sat by Pulse 100 100 100 Oximetry 05/09/21 05/09/21 05/09/21 01:50 02:00 03:00 Temperature Pulse Rate 83 78 Pulse Rate [ 89 Bilateral] Pulse Rate [ From Monitor] Respiratory 22 17 Rate Respiratory 28 H Rate [Bilateral ] Blood Pressure 130/51 132/50 O2 Sat by Pulse 100 100 Oximetry 05/09/21 05/09/21 05/09/21 04:00 04:22 05:01 Temperature 98.7 F Pulse Rate 80 79 76 Pulse Rate [ Bilateral] Pulse Rate [ 83 From Monitor] Respiratory 18 15 Rate Respiratory Rate [Bilateral ] Blood Pressure 135/53 142/51 107/53 O2 Sat by Pulse 100 100 100 Oximetry 05/09/21 05/09/21 05/09/21 06:01 06:51 07:00 Temperature 98.6 F Pulse Rate 84 90 86 Pulse Rate [ Bilateral] Pulse Rate [ From Monitor] Respiratory 24 16 Rate Respiratory Rate [Bilateral ] Blood Pressure 145/46 155/60 147/58 O2 Sat by Pulse 100 100 Oximetry 05/09/21 05/09/21 05/09/21 07:55 07:58 08:00 Temperature Pulse Rate 89 86 82 Pulse Rate [ Bilateral] Pulse Rate [ From Monitor] Respiratory 19 24 Rate Respiratory Rate [Bilateral ] Blood Pressure 145/55 145/55 150/83 O2 Sat by Pulse 100 100 100 Oximetry 05/09/21 05/09/21 05/09/21 08:02 09:01 10:01 Temperature Pulse Rate 88 91 H Pulse Rate [ 85 Bilateral] Pulse Rate [ From Monitor] Respiratory 26 H 32 H Rate Respiratory 24 Rate [Bilateral ] Blood Pressure 136/49 138/62 O2 Sat by Pulse 99 100 Oximetry 05/09/21 05/09/21 10:03 10:07 Temperature Pulse Rate 86 91 H Pulse Rate [ Bilateral] Pulse Rate [ From Monitor] Respiratory Rate Respiratory Rate [Bilateral ] Blood Pressure 138/62 138/62 O2 Sat by Pulse Oximetry - Lab 05/08/21 07:07 05/09/21 07:36 Most recent lab results ABG pH 7.454 (7.320-7.450) H 05/08/21 03:05 ABG O2 Saturation 96.1 (0-100) 05/08/21 03:05 Calcium 9.6 mg/dL (8.4-10.2) 05/09/21 07:36 Phosphorus 2.60 mg/dL (2.5-4.5) 04/22/21 08:00 Magnesium 2.10 mg/dL (1.7-2.3) 04/23/21 07:02 Urine Creatinine 24.4 mg/dL (0.1-20.0) H 05/17/21 00:12 Urine Sodium 97 mmol/L 04/16/21 00:12 Medications & Allergies - Medications Allergies/Adverse Reactions: Allergies No Known Allergies Allergy (Unverified 04/15/21 17:41) Home Medications: Home Medications Medication Instructions Recorded Confirmed Last Taken Type Betaxolol HCl [Betoptic S 0.25% 1 drop OU BID 04/16/21 04/16/21 Unknown History SUSP] Bimatoprost [Lumigan 0.01%] 1 drop OU QPM 04/16/21 04/16/21 Unknown History Brimonidine Tartrate [Brimonidine 5 ml OU BID 04/16/21 04/16/21 Unknown History Tartrate 0.2%] Furosemide [Lasix TAB] 40 mg PO QDAY 04/16/21 04/16/21 Unknown History Gabapentin [Neurontin] 300 mg PO Q8HR 04/16/21 04/16/21 Unknown History HYDROcodone/APAP 10-325 [[place] 1 each PO Q6HR PRN 04/16/21 04/16/21 Unknown History 10/325] Hydralazine HCl 50 mg PO Q4HR 04/16/21 04/16/21 Unknown History Insulin Aspart Prot/Insuln Asp 52 units SQ HS 04/16/21 04/16/21 Unknown History [Novolog Mix 70-30 Flexpen] Metoprolol [Lopressor] 25 mg PO BID 04/16/21 04/16/21 Unknown History Pravastatin [Pravachol] 20 mg PO QHS 04/16/21 04/16/21 Unknown History Promethazine [Phenergan] 25 mg PO Q6HR 04/16/21 04/16/21 Unknown History allopurinoL [Zyloprim] 150 mg PO QDAY 04/16/21 04/16/21 Unknown History Active Medications: Generic Name Dose Route Start Last Admin Trade Name Freq PRN Reason Stop Dose Admin Acetaminophen 650 mg 04/15/21 19:11 04/30/21 20:14 Acetaminophen 325 Mg Tab PO 650 mg Q6H PRN Administration Pain MILD(1-3)/Fever >100.5/SEXTON Albuterol/Ipratropium 1 ampul 04/24/21 14:00 05/09/21 08:02 Ipratropium/Albuterol Sulfate 3 Ml Ampul.Neb IH 1 ampul Q6HRT WOLFGANG Administration Amlodipine Besylate 10 mg 04/25/21 10:00 05/09/21 10:07 Amlodipine 10 Mg Tab PO 10 mg DAILY WOLFGANG Administration Lipase/Protease/Amylase 1 each 04/16/21 12:52 Lipase 10,500/Protease 25,000/Amylase 43,750 (Units) Dr Simpson FEEDTUBE PRN PRN For Clogged Feeding Tube Aspirin 81 mg 04/25/21 10:00 05/09/21 10:04 Aspirin 81 Mg Tab Chew PO 81 mg QDAY WOLFGANG Administration Bisacodyl 10 mg 04/17/21 11:01 05/03/21 09:50 Bisacodyl 10 Mg Rect Supp CO 10 mg QDAY PRN Administration Constipation Brimonidine Tartrate 1 drops 04/17/21 22:00 05/09/21 10:05 Brimonidine 0.15% Ophth Soln OU 1 drops BID WOLFGANG Administration Docusate Sodium 100 mg 04/29/21 15:00 05/09/21 10:07 Docusate Sodium 100 Mg/10 Ml Oral Liqd PO 100 mg BID WOLFGANG Administration Epinephrine 0.5 ml 04/21/21 12:56 Epinephrine Racemic 2.25% 0.5ml Nebu IH Q4HRT PRN Shortness Of Breath Famotidine 20 mg 04/17/21 10:00 05/09/21 10:03 Famotidine 20 Mg Tab PO 20 mg DAILY WOLFGANG Administration Fentanyl 50 mcg 05/07/21 09:00 Fentanyl 100 Mcg/2 Ml Inj IV Q4H PRN Pain , Severe (7-10) Heparin Sodium (Porcine) 5,000 unit 04/15/21 22:00 05/09/21 10:03 Heparin 5,000 Unit/1 Ml Vial SUB-Q 5,000 unit Q12HR WOLFGANG Administration Hydralazine HCl 10 mg 04/16/21 18:00 04/24/21 05:25 Hydralazine 20 Mg/1 Ml Inj IV 10 mg Q4HR PRN Administration Hypertension Hydralazine HCl 50 mg 05/03/21 14:00 05/09/21 06:51 Hydralazine 25 Mg Tab PO 50 mg Q8HR WOLFGANG Administration Hydrophilic Ointment 1 applic 04/15/21 17:24 Lip Therapy Vaseline TP Q2HR PRN Dry Lips Insulin Human Isoph/Insulin Regular 25 unit 05/09/21 08:00 05/09/21 09:00 Insulin Nph/Regular 70/30 Inj SUB-Q 25 unit BIDDIAB WOLFGANG Administration Insulin Human Lispro 0 unit 04/16/21 15:00 05/09/21 06:51 Insulin Lispro 100 Unit/Ml SUB-Q 4 unit Q6HR WOLFGANG Administration Protocol Latanoprost 1 drops 04/17/21 18:00 05/08/21 18:19 Latanoprost 0.005% Ophth Soln 2.5 Ml OU 1 drops QPM WOLFGANG Administration Levothyroxine Sodium 25 mcg 04/19/21 06:00 05/09/21 06:51 Levothyroxine 25 Mcg Tab PO 25 mcg DAILY@0600 WOLFGANG Administration Metoprolol Tartrate 25 mg 04/19/21 10:00 05/09/21 10:03 Metoprolol Tartrate 25 Mg Tab PO 25 mg BID WOLFGANG Administration Multi-Ingred Cream/Lotion/Oil/Oint 1 applic 04/15/21 17:24 05/04/21 09:25 Mineral Oil/Petrolatum, White Ophth Oint 3.5 Gm OU 1 applic Q4HR PRN Administration Dry Eye(s) Pravastatin Sodium 20 mg 04/19/21 22:00 05/08/21 21:35 Pravastatin 20 Mg Tab PO 20 mg QHS WOLFGANG Administration Scopolamine 1 each 04/20/21 18:00 05/08/21 09:44 Scopolamine Transdermal Patch 72 Hr TD 1 each Q3D WOLFGANG Administration Simple Syrup 15 ml 04/16/21 12:52 Simple Syrup 15 Ml FEEDTUBE PRN PRN Hypoglycemia Simple Syrup 30 ml 04/16/21 12:52 Simple Syrup 15 Ml FEEDTUBE PRN PRN Hypoglycemia Sodium Bicarbonate 325 mg 04/16/21 12:52 Sodium Bicarbonate 325 Mg Tab FEEDTUBE PRN PRN For Clogged Feeding Tube Sodium Chloride 10 ml 04/15/21 22:00 05/09/21 10:07 Sodium Chloride 0.9% 10 Ml Flush Syringe IV 10 ml BID WOLFGANG Administration Sodium Chloride 10 ml 04/15/21 19:11 04/24/21 05:27 Sodium Chloride 0.9% 10 Ml Flush Syringe IV 10 ml PRN PRN Administration LINE FLUSH Tamsulosin HCl 0.4 mg 04/25/21 14:00 05/09/21 10:04 Tamsulosin 0.4 Mg Cap PO 0.4 mg QDAY WOLFGANG Administration Timolol Maleate 1 drops 04/19/21 10:00 05/09/21 10:05 Timolol 0.5% Ophth Soln 5 Ml OU 1 drops QDAY WOLFGANG Administration
--- NOTE | 2021-05-09 12:11 | Progress Note ---
Assessment and Plan Acute respiratory failure, on mechanical ventilatory support. Acute toxic metabolic encephalopathy Hypoglycemia ROJELIO Hyperkalemia Rhabdomyolysis Possible seizure activity DM II HTN CAD Obesity H/O breast cancer H/O TIA Leukocytosis Elevated serum TSH, possible hypothyroidism - begin IV 1/2NS @ 75 ml's/hr X 2 more liters - follow BUN/CR - begin mucomyst nebs tid re: tenacious secretions - LTAC evaluation ongoing - continue care as below otherwise; - continue to wean supplemental oxygen for target O2 sat's > 90% acutely - VAP bundle addressed - continue lung protective strategies - continue bronchodilators with pulmonary hygiene per RT - continue Daily SAT and SBT assessment as tolerated - wean per pulmonary driven protocols otherwise - continue accuchecks with glycemic control per SSI (While critically ill target blood glucose of 140-180 mg/dL; avoid hypoglycemia) - sedation prn for target RASS 0 to -1 - avoid nephrotoxins, renally dose all medications - continue to avoid benzodiazepine's, reduce the possibility of delirium - complete AB's per ID rec's re: Cefepime and Flagyl - follow clinically trend fevers / WBC - prn analgesia per CPOT score - Maintenance of sleep-wake cycle, avoid delirium - continue enteral nutritional support at goal rate as tolerated - G.I. & VTE prophylaxis - PT/OT/ROM exercises - continue Flomax re: retention - continue mobility protocols for pressure ulcer prophylaxis - Monitor hemodynamics closely - continue other care per attending / other consultants - discharge planning ongoing concurrently .... Re-evaluate in am & prn CONDITION: CRITICAL PROGNOSIS: GUARDED CODE STATUS: FULL CODE The high probability of a clinically significant, sudden or life-threatening deterioration of the [respiratory, cardiovascular, GI & neurologic] system(s) required my full and direct attention, intervention and personal management. The aggregate critical care time was [32] minutes without overlap. Time includes spent on; [x] Data Review and interpretation [x] Patient assessment and monitoring of vital signs [x] Documentation [x] Medication orders and management Subjective Date of service: 05/09/21 Principal diagnosis: Ac. resp failure; AMS; Hypoglycemia; ROJELIO; Hyperkalemia; DM II Interval history: Patient is seen today for: Acute respiratory failure; AMS; Hypoglycemia; ROJELIO; Hyperkalemia; DM II; H/O breast cancer; Elevated serum TSH, possible hypo thyroidism Seen and examined at bedside; 24hour events reviewed; nursing and respiratory care staff consulted; no adverse overnight events reported to me; resting peacefully in bed; remains on MVS; still a tenuous wean with p-supp at 15 cm H2O; azotemia still improving; secretions thick and tenacious Objective Vital Signs - 12hr 05/09/21 05/09/21 05/09/21 00:30 01:00 01:50 Temperature Pulse Rate 86 82 Pulse Rate [ 89 Bilateral] Pulse Rate [ From Monitor] Respiratory 21 Rate Respiratory 28 H Rate [Bilateral ] Blood Pressure 138/57 135/51 O2 Sat by Pulse 100 100 Oximetry 05/09/21 05/09/21 05/09/21 02:00 03:00 04:00 Temperature 98.7 F Pulse Rate 83 78 80 Pulse Rate [ Bilateral] Pulse Rate [ 83 From Monitor] Respiratory 22 17 18 Rate Respiratory Rate [Bilateral ] Blood Pressure 130/51 132/50 135/53 O2 Sat by Pulse 100 100 100 Oximetry 05/09/21 05/09/21 05/09/21 04:22 05:01 06:01 Temperature Pulse Rate 79 76 84 Pulse Rate [ Bilateral] Pulse Rate [ From Monitor] Respiratory 15 24 Rate Respiratory Rate [Bilateral ] Blood Pressure 142/51 107/53 145/46 O2 Sat by Pulse 100 100 100 Oximetry 05/09/21 05/09/21 05/09/21 06:51 07:00 07:55 Temperature 98.6 F Pulse Rate 90 86 89 Pulse Rate [ Bilateral] Pulse Rate [ From Monitor] Respiratory 16 Rate Respiratory Rate [Bilateral ] Blood Pressure 155/60 147/58 145/55 O2 Sat by Pulse 100 100 Oximetry 05/09/21 05/09/21 05/09/21 07:58 08:00 08:02 Temperature Pulse Rate 86 82 Pulse Rate [ 85 Bilateral] Pulse Rate [ From Monitor] Respiratory 19 24 Rate Respiratory 24 Rate [Bilateral ] Blood Pressure 145/55 150/83 O2 Sat by Pulse 100 100 Oximetry 05/09/21 05/09/21 05/09/21 09:01 10:01 10:03 Temperature Pulse Rate 88 91 H 86 Pulse Rate [ Bilateral] Pulse Rate [ From Monitor] Respiratory 26 H 32 H Rate Respiratory Rate [Bilateral ] Blood Pressure 136/49 138/62 138/62 O2 Sat by Pulse 99 100 Oximetry 05/09/21 05/09/21 10:07 11:44 Temperature Pulse Rate 91 H 78 Pulse Rate [ Bilateral] Pulse Rate [ From Monitor] Respiratory 18 Rate Respiratory Rate [Bilateral ] Blood Pressure 138/62 122/51 O2 Sat by Pulse 100 Oximetry Constitutional: no acute distress, other (elderly obese female with mildly increased respiratory effort at rest on MVS) Eyes: non-icteric ENT: oropharynx moist, other (+ midline tracheostomy without bleeding stoma) Neck: supple, no lymphadenopathy, no JVD, other (large circumference) Effort: mildly labored Ascultation: Bilateral: diminished breath sounds, rhonchi Percussion: Bilateral: not dull Cardiovascular: regular rate and rhythm, other (S1,S2) Gastrointestinal: normoactive bowel sounds, hypoactive bowel sounds, non-tender, non-distended (protuberant) Integumentary: normal Extremities: no cyanosis, no edema, pulses normal, no ischemia or petechiae Neurologic: non-focal exam (tracks voice), pupils equal and round, CN II-XII normal, motor strength normal and Psychiatric: other (falt affect) CBC and BMP: 05/08/21 07:07 05/10/21 05:36 ABG, PT/INR, D-dimer: ABG ABG pH 7.454 (7.320-7.450) H 05/08/21 03:05 POC ABG pCO2 34.2 mmHg (32.0-48.0) 05/08/21 03:05 POC ABG pO2 82.1 mmHg (83-108) L 05/08/21 03:05 POC ABG HCO3 23.5 05/08/21 03:05 ABG O2 Saturation 96.1 (0-100) 05/08/21 03:05 PT/INR, D-dimer PT 14.8 Sec. (12.2-14.9) 05/07/21 08:20 INR 1.11 (0.87-1.13) 05/07/21 08:20 Abnormal lab findings: Abnormal Labs 04/15/21 04/15/21 04/15/21 17:00 17:20 17:20 WBC 11.2 H RBC Hgb Hct 43.0 H MCV RDW 15.3 H Plt Count Lymph % (Auto) 12.8 L Seg Neutrophils % 82.4 H Seg Neuts % (Manual) Lymphocytes % (Manual) Monocytes % (Manual) Seg Neutrophils # 9.3 H Seg Neutrophils # Man Lymphocytes # (Manual) Monocytes # (Manual) ABG pH POC ABG pCO2 POC ABG pO2 ABG Hemoglobin ABG Oxyhemoglobin ABG Sodium ABG Potassium ABG Chloride ABG Glucose Carboxyhemoglobin Sodium 129 L Potassium 7.1 H* Chloride 91.9 L BUN 35 H Creatinine 2.8 H Glucose POC Glucose 191 H Calcium Phosphorus Magnesium AST 69 H ALT Total Creatine Kinase CK-MB (CK-2) Troponin T Total Protein Albumin HDL Cholesterol TSH Free T3 Index Arterial Blood Glucose Arterial Blood Ionized Calcium Urine pH Urine WBC (Auto) Urine Creatinine Acetaminophen 04/15/21 04/15/21 04/15/21 17:20 17:20 17:20 WBC RBC Hgb Hct MCV RDW Plt Count Lymph % (Auto) Seg Neutrophils % Seg Neuts % (Manual) Lymphocytes % (Manual) Monocytes % (Manual) Seg Neutrophils # Seg Neutrophils # Man Lymphocytes # (Manual) Monocytes # (Manual) ABG pH POC ABG pCO2 POC ABG pO2 ABG Hemoglobin ABG Oxyhemoglobin ABG Sodium ABG Potassium ABG Chloride ABG Glucose Carboxyhemoglobin Sodium Potassium Chloride BUN Creatinine Glucose POC Glucose Calcium Phosphorus Magnesium AST ALT Total Creatine Kinase 1000 H CK-MB (CK-2) Troponin T Total Protein Albumin HDL Cholesterol TSH 14.190 H Free T3 Index Arterial Blood Glucose Arterial Blood Ionized Calcium Urine pH Urine WBC (Auto) Urine Creatinine Acetaminophen 5.0 L 04/15/21 04/15/21 04/15/21 20:49 21:23 23:15 WBC RBC Hgb Hct MCV RDW Plt Count Lymph % (Auto) Seg Neutrophils % Seg Neuts % (Manual) Lymphocytes % (Manual) Monocytes % (Manual) Seg Neutrophils # Seg Neutrophils # Man Lymphocytes # (Manual) Monocytes # (Manual) ABG pH 7.557 H POC ABG pCO2 30.0 L POC ABG pO2 493.3 H ABG Hemoglobin ABG Oxyhemoglobin 99.0 H ABG Sodium 131.5 L ABG Potassium 4.7 H ABG Chloride 94.0 L ABG Glucose 218 H Carboxyhemoglobin Sodium Potassium Chloride BUN Creatinine Glucose POC Glucose 173 H 207 H Calcium Phosphorus Magnesium AST ALT Total Creatine Kinase CK-MB (CK-2) Troponin T Total Protein Albumin HDL Cholesterol TSH Free T3 Index Arterial Blood Glucose 218 H Arterial Blood Ionized Calcium 5.4 H Urine pH Urine WBC (Auto) Urine Creatinine Acetaminophen 04/16/21 04/16/21 04/16/21 00:09 00:12 00:19 WBC RBC Hgb Hct MCV RDW Plt Count Lymph % (Auto) Seg Neutrophils % Seg Neuts % (Manual) Lymphocytes % (Manual) Monocytes % (Manual) Seg Neutrophils # Seg Neutrophils # Man Lymphocytes # (Manual) Monocytes # (Manual) ABG pH POC ABG pCO2 POC ABG pO2 ABG Hemoglobin ABG Oxyhemoglobin ABG Sodium ABG Potassium ABG Chloride ABG Glucose Carboxyhemoglobin Sodium Potassium 6.7 H* Chloride BUN Creatinine Glucose POC Glucose Calcium Phosphorus Magnesium AST ALT Total Creatine Kinase CK-MB (CK-2) Troponin T Total Protein Albumin HDL Cholesterol TSH Free T3 Index Arterial Blood Glucose Arterial Blood Ionized Calcium Urine pH 9.0 H Urine WBC (Auto) Urine Creatinine 24.4 H Acetaminophen 04/16/21 04/16/21 04/16/21 03:43 03:55 05:02 WBC 21.2 H RBC Hgb Hct 43.4 H MCV 98 H RDW Plt Count Lymph % (Auto) Seg Neutrophils % Seg Neuts % (Manual) 84.0 H Lymphocytes % (Manual) 2.0 L Monocytes % (Manual) 10.0 H Seg Neutrophils # Seg Neutrophils # Man 17.8 H Lymphocytes # (Manual) 0.4 L Monocytes # (Manual) 2.1 H ABG pH 7.461 H POC ABG pCO2 POC ABG pO2 ABG Hemoglobin ABG Oxyhemoglobin ABG Sodium 126.8 L ABG Potassium 5.4 H ABG Chloride 90.0 L ABG Glucose 325 H Carboxyhemoglobin Sodium Potassium Chloride BUN Creatinine Glucose POC Glucose 391 H Calcium Phosphorus Magnesium AST ALT Total Creatine Kinase CK-MB (CK-2) Troponin T Total Protein Albumin HDL Cholesterol TSH Free T3 Index Arterial Blood Glucose 325 H Arterial Blood Ionized Calcium Urine pH Urine WBC (Auto) Urine Creatinine Acetaminophen 04/16/21 04/16/21 04/16/21 05:02 11:34 16:09 WBC RBC Hgb Hct MCV RDW Plt Count Lymph % (Auto) Seg Neutrophils % Seg Neuts % (Manual) Lymphocytes % (Manual) Monocytes % (Manual) Seg Neutrophils # Seg Neutrophils # Man Lymphocytes # (Manual) Monocytes # (Manual) ABG pH POC ABG pCO2 POC ABG pO2 ABG Hemoglobin ABG Oxyhemoglobin ABG Sodium ABG Potassium ABG Chloride ABG Glucose Carboxyhemoglobin Sodium 131 L Potassium 5.9 H Chloride 88.7 L BUN 34 H Creatinine 2.9 H Glucose 249 H POC Glucose 382 H 300 H Calcium 10.4 H Phosphorus Magnesium AST 65 H ALT Total Creatine Kinase CK-MB (CK-2) Troponin T Total Protein Albumin 3.8 L HDL Cholesterol TSH Free T3 Index Arterial Blood Glucose Arterial Blood Ionized Calcium Urine pH Urine WBC (Auto) Urine Creatinine Acetaminophen 04/16/21 04/16/21 04/16/21 18:15 19:01 19:01 WBC RBC Hgb Hct MCV RDW Plt Count Lymph % (Auto) Seg Neutrophils % Seg Neuts % (Manual) Lymphocytes % (Manual) Monocytes % (Manual) Seg Neutrophils # Seg Neutrophils # Man Lymphocytes # (Manual) Monocytes # (Manual) ABG pH POC ABG pCO2 POC ABG pO2 ABG Hemoglobin ABG Oxyhemoglobin ABG Sodium ABG Potassium ABG Chloride ABG Glucose Carboxyhemoglobin Sodium 125 L Potassium 5.5 H Chloride 84.5 L BUN 37 H Creatinine 3.5 H Glucose 236 H POC Glucose 287 H Calcium Phosphorus Magnesium AST ALT Total Creatine Kinase CK-MB (CK-2) Troponin T Total Protein Albumin HDL Cholesterol TSH Free T3 Index 1.1 L Arterial Blood Glucose Arterial Blood Ionized Calcium Urine pH Urine WBC (Auto) Urine Creatinine Acetaminophen 04/16/21 04/16/21 04/17/21 19:01 23:48 03:09 WBC RBC Hgb Hct MCV RDW Plt Count Lymph % (Auto) Seg Neutrophils % Seg Neuts % (Manual) Lymphocytes % (Manual) Monocytes % (Manual) Seg Neutrophils # Seg Neutrophils # Man Lymphocytes # (Manual) Monocytes # (Manual) ABG pH 7.518 H POC ABG pCO2 POC ABG pO2 ABG Hemoglobin ABG Oxyhemoglobin ABG Sodium 126.4 L ABG Potassium ABG Chloride 89.0 L ABG Glucose 200 H Carboxyhemoglobin Sodium Potassium 5.6 H Chloride BUN Creatinine Glucose POC Glucose 243 H Calcium Phosphorus Magnesium AST ALT Total Creatine Kinase CK-MB (CK-2) Troponin T Total Protein Albumin HDL Cholesterol TSH Free T3 Index Arterial Blood Glucose 200 H Arterial Blood Ionized Calcium 4.4 L Urine pH Urine WBC (Auto) Urine Creatinine Acetaminophen 04/17/21 04/17/21 04/17/21 05:04 06:14 11:55 WBC RBC Hgb Hct MCV RDW Plt Count Lymph % (Auto) Seg Neutrophils % Seg Neuts % (Manual) Lymphocytes % (Manual) Monocytes % (Manual) Seg Neutrophils # Seg Neutrophils # Man Lymphocytes # (Manual) Monocytes # (Manual) ABG pH POC ABG pCO2 POC ABG pO2 ABG Hemoglobin ABG Oxyhemoglobin ABG Sodium ABG Potassium ABG Chloride ABG Glucose Carboxyhemoglobin Sodium 129 L Potassium Chloride 86.1 L BUN 39 H Creatinine 3.5 H Glucose 202 H POC Glucose 208 H 276 H Calcium Phosphorus Magnesium AST ALT Total Creatine Kinase 750 H CK-MB (CK-2) Troponin T 0.119 H* D Total Protein Albumin HDL Cholesterol 61 H TSH Free T3 Index Arterial Blood Glucose Arterial Blood Ionized Calcium Urine pH Urine WBC (Auto) Urine Creatinine Acetaminophen 04/17/21 04/17/21 04/17/21 15:35 15:35 17:07 WBC 17.1 H RBC Hgb Hct MCV RDW Plt Count Lymph % (Auto) Seg Neutrophils % Seg Neuts % (Manual) Lymphocytes % (Manual) Monocytes % (Manual) Seg Neutrophils # Seg Neutrophils # Man Lymphocytes # (Manual) Monocytes # (Manual) ABG pH POC ABG pCO2 POC ABG pO2 ABG Hemoglobin ABG Oxyhemoglobin ABG Sodium ABG Potassium ABG Chloride ABG Glucose Carboxyhemoglobin Sodium Potassium Chloride BUN Creatinine Glucose POC Glucose 148 H Calcium Phosphorus Magnesium AST ALT Total Creatine Kinase 615 H CK-MB (CK-2) 9.1 H Troponin T Total Protein Albumin HDL Cholesterol TSH Free T3 Index Arterial Blood Glucose Arterial Blood Ionized Calcium Urine pH Urine WBC (Auto) Urine Creatinine Acetaminophen 04/18/21 04/18/21 04/18/21 00:01 03:00 05:24 WBC RBC Hgb Hct MCV RDW Plt Count Lymph % (Auto) Seg Neutrophils % Seg Neuts % (Manual) Lymphocytes % (Manual) Monocytes % (Manual) Seg Neutrophils # Seg Neutrophils # Man Lymphocytes # (Manual) Monocytes # (Manual) ABG pH 7.497 H POC ABG pCO2 POC ABG pO2 77.7 L ABG Hemoglobin 10.4 L ABG Oxyhemoglobin ABG Sodium 129.7 L ABG Potassium 2.8 L ABG Chloride 92.0 L ABG Glucose 134 H Carboxyhemoglobin 0.3 L Sodium Potassium Chloride BUN Creatinine Glucose POC Glucose 192 H 162 H Calcium Phosphorus Magnesium AST ALT Total Creatine Kinase CK-MB (CK-2) Troponin T Total Protein Albumin HDL Cholesterol TSH Free T3 Index Arterial Blood Glucose 134 H Arterial Blood Ionized Calcium 4.3 L Urine pH Urine WBC (Auto) Urine Creatinine Acetaminophen 04/18/21 04/18/21 04/18/21 05:34 05:34 05:43 WBC 15.3 H RBC 3.34 L Hgb Hct MCV RDW 15.3 H Plt Count Lymph % (Auto) Seg Neutrophils % Seg Neuts % (Manual) Lymphocytes % (Manual) Monocytes % (Manual) Seg Neutrophils # Seg Neutrophils # Man Lymphocytes # (Manual) Monocytes # (Manual) ABG pH POC ABG pCO2 POC ABG pO2 ABG Hemoglobin ABG Oxyhemoglobin ABG Sodium ABG Potassium ABG Chloride ABG Glucose Carboxyhemoglobin Sodium 134 L Potassium 3.0 L D Chloride 93.5 L BUN 42 H Creatinine 3.1 H Glucose 152 H POC Glucose Calcium Phosphorus Magnesium 1.40 L AST ALT Total Creatine Kinase 427 H CK-MB (CK-2) Troponin T 0.081 H D Total Protein Albumin HDL Cholesterol TSH Free T3 Index Arterial Blood Glucose Arterial Blood Ionized Calcium Urine pH Urine WBC (Auto) Urine Creatinine Acetaminophen 04/18/21 04/18/21 04/18/21 09:11 11:34 17:24 WBC RBC Hgb Hct MCV RDW Plt Count Lymph % (Auto) Seg Neutrophils % Seg Neuts % (Manual) Lymphocytes % (Manual) Monocytes % (Manual) Seg Neutrophils # Seg Neutrophils # Man Lymphocytes # (Manual) Monocytes # (Manual) ABG pH POC ABG pCO2 POC ABG pO2 ABG Hemoglobin ABG Oxyhemoglobin ABG Sodium ABG Potassium ABG Chloride ABG Glucose Carboxyhemoglobin Sodium Potassium Chloride BUN Creatinine Glucose POC Glucose 170 H 151 H Calcium Phosphorus Magnesium AST ALT Total Creatine Kinase CK-MB (CK-2) Troponin T Total Protein Albumin HDL Cholesterol TSH Free T3 Index Arterial Blood Glucose Arterial Blood Ionized Calcium Urine pH Urine WBC (Auto) 34.0 H Urine Creatinine Acetaminophen 04/18/21 04/19/21 04/19/21 23:18 04:09 05:19 WBC RBC Hgb Hct MCV RDW Plt Count Lymph % (Auto) Seg Neutrophils % Seg Neuts % (Manual) Lymphocytes % (Manual) Monocytes % (Manual) Seg Neutrophils # Seg Neutrophils # Man Lymphocytes # (Manual) Monocytes # (Manual) ABG pH 7.476 H POC ABG pCO2 POC ABG pO2 79.4 L ABG Hemoglobin 10.7 L ABG Oxyhemoglobin ABG Sodium 131.2 L ABG Potassium 2.8 L ABG Chloride 94.0 L ABG Glucose 209 H Carboxyhemoglobin 0.3 L Sodium Potassium Chloride BUN Creatinine Glucose POC Glucose 182 H 204 H Calcium Phosphorus Magnesium AST ALT Total Creatine Kinase CK-MB (CK-2) Troponin T Total Protein Albumin HDL Cholesterol TSH Free T3 Index Arterial Blood Glucose 209 H Arterial Blood Ionized Calcium Urine pH Urine WBC (Auto) Urine Creatinine Acetaminophen 04/19/21 04/19/21 04/19/21 07:30 07:30 10:35 WBC 14.8 H RBC 3.20 L Hgb Hct MCV 98 H RDW Plt Count 137 L Lymph % (Auto) Seg Neutrophils % Seg Neuts % (Manual) Lymphocytes % (Manual) Monocytes % (Manual) Seg Neutrophils # Seg Neutrophils # Man Lymphocytes # (Manual) Monocytes # (Manual) ABG pH 7.464 H POC ABG pCO2 POC ABG pO2 81.8 L ABG Hemoglobin 10.8 L ABG Oxyhemoglobin ABG Sodium 129.6 L ABG Potassium ABG Chloride 95.0 L ABG Glucose 238 H Carboxyhemoglobin Sodium 133 L Potassium 2.8 L* Chloride 94.4 L BUN 43 H Creatinine 2.7 H Glucose 255 H POC Glucose Calcium 8.0 L Phosphorus Magnesium AST ALT Total Creatine Kinase CK-MB (CK-2) Troponin T 0.060 H D Total Protein Albumin HDL Cholesterol TSH Free T3 Index Arterial Blood Glucose 238 H Arterial Blood Ionized Calcium Urine pH Urine WBC (Auto) Urine Creatinine Acetaminophen 04/19/21 04/19/21 04/19/21 11:48 20:40 23:04 WBC RBC Hgb Hct MCV RDW Plt Count Lymph % (Auto) Seg Neutrophils % Seg Neuts % (Manual) Lymphocytes % (Manual) Monocytes % (Manual) Seg Neutrophils # Seg Neutrophils # Man Lymphocytes # (Manual) Monocytes # (Manual) ABG pH POC ABG pCO2 POC ABG pO2 ABG Hemoglobin ABG Oxyhemoglobin ABG Sodium ABG Potassium ABG Chloride ABG Glucose Carboxyhemoglobin Sodium Potassium 3.4 L D Chloride BUN Creatinine Glucose POC Glucose 208 H 173 H Calcium Phosphorus Magnesium AST ALT Total Creatine Kinase CK-MB (CK-2) Troponin T Total Protein Albumin HDL Cholesterol TSH Free T3 Index Arterial Blood Glucose Arterial Blood Ionized Calcium Urine pH Urine WBC (Auto) Urine Creatinine Acetaminophen 04/20/21 04/20/21 04/20/21 02:56 03:32 03:32 WBC 13.2 H RBC 3.18 L Hgb Hct MCV RDW Plt Count Lymph % (Auto) Seg Neutrophils % Seg Neuts % (Manual) Lymphocytes % (Manual) Monocytes % (Manual) Seg Neutrophils # Seg Neutrophils # Man Lymphocytes # (Manual) Monocytes # (Manual) ABG pH 7.526 H POC ABG pCO2 POC ABG pO2 ABG Hemoglobin 10.5 L ABG Oxyhemoglobin ABG Sodium 133.5 L ABG Potassium ABG Chloride ABG Glucose 157 H Carboxyhemoglobin 0.3 L Sodium 135 L Potassium Chloride 96.7 L BUN 40 H Creatinine 2.3 H Glucose 142 H POC Glucose Calcium Phosphorus Magnesium AST ALT Total Creatine Kinase CK-MB (CK-2) Troponin T 0.065 H Total Protein Albumin HDL Cholesterol TSH Free T3 Index Arterial Blood Glucose 157 H Arterial Blood Ionized Calcium Urine pH Urine WBC (Auto) Urine Creatinine Acetaminophen 04/20/21 04/20/21 04/20/21 03:46 05:42 11:50 WBC RBC Hgb Hct MCV RDW Plt Count Lymph % (Auto) Seg Neutrophils % Seg Neuts % (Manual) Lymphocytes % (Manual) Monocytes % (Manual) Seg Neutrophils # Seg Neutrophils # Man Lymphocytes # (Manual) Monocytes # (Manual) ABG pH POC ABG pCO2 POC ABG pO2 ABG Hemoglobin ABG Oxyhemoglobin ABG Sodium ABG Potassium ABG Chloride ABG Glucose Carboxyhemoglobin Sodium Potassium Chloride BUN Creatinine Glucose POC Glucose 160 H 194 H Calcium Phosphorus 2.10 L Magnesium AST ALT Total Creatine Kinase CK-MB (CK-2) Troponin T Total Protein Albumin HDL Cholesterol TSH Free T3 Index Arterial Blood Glucose Arterial Blood Ionized Calcium Urine pH Urine WBC (Auto) Urine Creatinine Acetaminophen 04/20/21 04/20/21 04/21/21 17:09 23:18 05:26 WBC RBC Hgb Hct MCV RDW Plt Count Lymph % (Auto) Seg Neutrophils % Seg Neuts % (Manual) Lymphocytes % (Manual) Monocytes % (Manual) Seg Neutrophils # Seg Neutrophils # Man Lymphocytes # (Manual) Monocytes # (Manual) ABG pH POC ABG pCO2 POC ABG pO2 ABG Hemoglobin ABG Oxyhemoglobin ABG Sodium ABG Potassium ABG Chloride ABG Glucose Carboxyhemoglobin Sodium Potassium Chloride BUN Creatinine Glucose POC Glucose 153 H 162 H 164 H Calcium Phosphorus Magnesium AST ALT Total Creatine Kinase CK-MB (CK-2) Troponin T Total Protein Albumin HDL Cholesterol TSH Free T3 Index Arterial Blood Glucose Arterial Blood Ionized Calcium Urine pH Urine WBC (Auto) Urine Creatinine Acetaminophen 04/21/21 04/21/21 04/21/21 05:51 05:51 12:12 WBC RBC 3.20 L Hgb Hct MCV 99 H RDW 15.3 H Plt Count Lymph % (Auto) Seg Neutrophils % Seg Neuts % (Manual) Lymphocytes % (Manual) Monocytes % (Manual) Seg Neutrophils # Seg Neutrophils # Man Lymphocytes # (Manual) Monocytes # (Manual) ABG pH POC ABG pCO2 POC ABG pO2 ABG Hemoglobin ABG Oxyhemoglobin ABG Sodium ABG Potassium ABG Chloride ABG Glucose Carboxyhemoglobin Sodium Potassium Chloride 96.6 L BUN 42 H Creatinine 2.1 H Glucose 171 H POC Glucose 167 H Calcium Phosphorus Magnesium AST ALT Total Creatine Kinase CK-MB (CK-2) Troponin T Total Protein Albumin HDL Cholesterol TSH Free T3 Index Arterial Blood Glucose Arterial Blood Ionized Calcium Urine pH Urine WBC (Auto) Urine Creatinine Acetaminophen 04/21/21 04/21/21 04/22/21 17:13 23:42 05:29 WBC RBC Hgb Hct MCV RDW Plt Count Lymph % (Auto) Seg Neutrophils % Seg Neuts % (Manual) Lymphocytes % (Manual) Monocytes % (Manual) Seg Neutrophils # Seg Neutrophils # Man Lymphocytes # (Manual) Monocytes # (Manual) ABG pH POC ABG pCO2 POC ABG pO2 ABG Hemoglobin ABG Oxyhemoglobin ABG Sodium ABG Potassium ABG Chloride ABG Glucose Carboxyhemoglobin Sodium Potassium Chloride BUN Creatinine Glucose POC Glucose 178 H 253 H 208 H Calcium Phosphorus Magnesium AST ALT Total Creatine Kinase CK-MB (CK-2) Troponin T Total Protein Albumin HDL Cholesterol TSH Free T3 Index Arterial Blood Glucose Arterial Blood Ionized Calcium Urine pH Urine WBC (Auto) Urine Creatinine Acetaminophen 04/22/21 04/22/21 04/22/21 08:00 08:00 12:06 WBC 12.9 H RBC Hgb Hct MCV RDW Plt Count Lymph % (Auto) Seg Neutrophils % Seg Neuts % (Manual) Lymphocytes % (Manual) Monocytes % (Manual) Seg Neutrophils # Seg Neutrophils # Man Lymphocytes # (Manual) Monocytes # (Manual) ABG pH POC ABG pCO2 POC ABG pO2 ABG Hemoglobin ABG Oxyhemoglobin ABG Sodium ABG Potassium ABG Chloride ABG Glucose Carboxyhemoglobin Sodium Potassium Chloride BUN 47 H Creatinine 1.9 H Glucose 252 H POC Glucose 298 H Calcium Phosphorus Magnesium AST ALT Total Creatine Kinase CK-MB (CK-2) Troponin T Total Protein Albumin HDL Cholesterol TSH Free T3 Index Arterial Blood Glucose Arterial Blood Ionized Calcium Urine pH Urine WBC (Auto) Urine Creatinine Acetaminophen 04/22/21 04/22/21 04/23/21 17:34 23:01 05:08 WBC RBC Hgb Hct MCV RDW Plt Count Lymph % (Auto) Seg Neutrophils % Seg Neuts % (Manual) Lymphocytes % (Manual) Monocytes % (Manual) Seg Neutrophils # Seg Neutrophils # Man Lymphocytes # (Manual) Monocytes # (Manual) ABG pH POC ABG pCO2 POC ABG pO2 ABG Hemoglobin ABG Oxyhemoglobin ABG Sodium ABG Potassium ABG Chloride ABG Glucose Carboxyhemoglobin Sodium Potassium Chloride BUN Creatinine Glucose POC Glucose 259 H 280 H 223 H Calcium Phosphorus Magnesium AST ALT Total Creatine Kinase CK-MB (CK-2) Troponin T Total Protein Albumin HDL Cholesterol TSH Free T3 Index Arterial Blood Glucose Arterial Blood Ionized Calcium Urine pH Urine WBC (Auto) Urine Creatinine Acetaminophen 04/23/21 04/23/21 04/23/21 07:02 11:57 17:33 WBC RBC Hgb Hct MCV RDW Plt Count Lymph % (Auto) Seg Neutrophils % Seg Neuts % (Manual) Lymphocytes % (Manual) Monocytes % (Manual) Seg Neutrophils # Seg Neutrophils # Man Lymphocytes # (Manual) Monocytes # (Manual) ABG pH POC ABG pCO2 POC ABG pO2 ABG Hemoglobin ABG Oxyhemoglobin ABG Sodium ABG Potassium ABG Chloride ABG Glucose Carboxyhemoglobin Sodium Potassium Chloride 97.7 L BUN 57 H Creatinine 2.0 H Glucose 253 H POC Glucose 310 H 235 H Calcium Phosphorus Magnesium AST ALT Total Creatine Kinase CK-MB (CK-2) Troponin T Total Protein Albumin HDL Cholesterol TSH Free T3 Index Arterial Blood Glucose Arterial Blood Ionized Calcium Urine pH Urine WBC (Auto) Urine Creatinine Acetaminophen 04/23/21 04/24/21 04/24/21 23:15 05:23 05:46 WBC RBC Hgb Hct MCV RDW Plt Count Lymph % (Auto) Seg Neutrophils % Seg Neuts % (Manual) Lymphocytes % (Manual) Monocytes % (Manual) Seg Neutrophils # Seg Neutrophils # Man Lymphocytes # (Manual) Monocytes # (Manual) ABG pH POC ABG pCO2 POC ABG pO2 ABG Hemoglobin ABG Oxyhemoglobin ABG Sodium ABG Potassium ABG Chloride ABG Glucose Carboxyhemoglobin Sodium Potassium 5.2 H D Chloride BUN 68 H Creatinine 2.3 H Glucose 277 H POC Glucose 197 H 274 H Calcium Phosphorus Magnesium AST ALT Total Creatine Kinase CK-MB (CK-2) Troponin T Total Protein Albumin HDL Cholesterol TSH Free T3 Index Arterial Blood Glucose Arterial Blood Ionized Calcium Urine pH Urine WBC (Auto) Urine Creatinine Acetaminophen 04/24/21 04/24/21 04/24/21 11:33 11:52 17:49 WBC RBC Hgb Hct MCV RDW Plt Count Lymph % (Auto) Seg Neutrophils % Seg Neuts % (Manual) Lymphocytes % (Manual) Monocytes % (Manual) Seg Neutrophils # Seg Neutrophils # Man Lymphocytes # (Manual) Monocytes # (Manual) ABG pH POC ABG pCO2 POC ABG pO2 72.7 L ABG Hemoglobin 11.6 L ABG Oxyhemoglobin 92.9 L ABG Sodium ABG Potassium ABG Chloride ABG Glucose 269 H Carboxyhemoglobin Sodium Potassium Chloride BUN Creatinine Glucose POC Glucose 223 H 252 H Calcium Phosphorus Magnesium AST ALT Total Creatine Kinase CK-MB (CK-2) Troponin T Total Protein Albumin HDL Cholesterol TSH Free T3 Index Arterial Blood Glucose 269 H Arterial Blood Ionized Calcium Urine pH Urine WBC (Auto) Urine Creatinine Acetaminophen 04/24/21 04/24/21 04/25/21 21:00 23:48 03:06 WBC RBC Hgb Hct MCV RDW Plt Count Lymph % (Auto) Seg Neutrophils % Seg Neuts % (Manual) Lymphocytes % (Manual) Monocytes % (Manual) Seg Neutrophils # Seg Neutrophils # Man Lymphocytes # (Manual) Monocytes # (Manual) ABG pH 7.521 H 7.451 H POC ABG pCO2 POC ABG pO2 80.7 L 77.1 L ABG Hemoglobin 10.4 L 11.2 L ABG Oxyhemoglobin ABG Sodium ABG Potassium ABG Chloride ABG Glucose 186 H 165 H Carboxyhemoglobin 0 L Sodium Potassium Chloride BUN Creatinine Glucose POC Glucose 141 H Calcium Phosphorus Magnesium AST ALT Total Creatine Kinase CK-MB (CK-2) Troponin T Total Protein Albumin HDL Cholesterol TSH Free T3 Index Arterial Blood Glucose 186 H 165 H Arterial Blood Ionized Calcium Urine pH Urine WBC (Auto) Urine Creatinine Acetaminophen 04/25/21 04/25/21 04/25/21 03:56 03:56 06:03 WBC 12.3 H RBC 3.40 L Hgb Hct MCV RDW Plt Count Lymph % (Auto) Seg Neutrophils % Seg Neuts % (Manual) Lymphocytes % (Manual) Monocytes % (Manual) Seg Neutrophils # Seg Neutrophils # Man Lymphocytes # (Manual) Monocytes # (Manual) ABG pH POC ABG pCO2 POC ABG pO2 ABG Hemoglobin ABG Oxyhemoglobin ABG Sodium ABG Potassium ABG Chloride ABG Glucose Carboxyhemoglobin Sodium Potassium Chloride BUN 78 H Creatinine 2.5 H Glucose 152 H POC Glucose 171 H Calcium Phosphorus Magnesium AST ALT Total Creatine Kinase CK-MB (CK-2) Troponin T Total Protein Albumin HDL Cholesterol TSH Free T3 Index Arterial Blood Glucose Arterial Blood Ionized Calcium Urine pH Urine WBC (Auto) Urine Creatinine Acetaminophen 04/25/21 04/25/21 04/26/21 11:43 15:37 00:05 WBC RBC Hgb Hct MCV RDW Plt Count Lymph % (Auto) Seg Neutrophils % Seg Neuts % (Manual) Lymphocytes % (Manual) Monocytes % (Manual) Seg Neutrophils # Seg Neutrophils # Man Lymphocytes # (Manual) Monocytes # (Manual) ABG pH POC ABG pCO2 POC ABG pO2 ABG Hemoglobin ABG Oxyhemoglobin ABG Sodium ABG Potassium ABG Chloride ABG Glucose Carboxyhemoglobin Sodium Potassium Chloride BUN Creatinine Glucose POC Glucose 181 H 167 H 144 H Calcium Phosphorus Magnesium AST ALT Total Creatine Kinase CK-MB (CK-2) Troponin T Total Protein Albumin HDL Cholesterol TSH Free T3 Index Arterial Blood Glucose Arterial Blood Ionized Calcium Urine pH Urine WBC (Auto) Urine Creatinine Acetaminophen 04/26/21 04/26/21 04/26/21 04:30 05:44 09:30 WBC RBC Hgb Hct MCV RDW Plt Count Lymph % (Auto) Seg Neutrophils % Seg Neuts % (Manual) Lymphocytes % (Manual) Monocytes % (Manual) Seg Neutrophils # Seg Neutrophils # Man Lymphocytes # (Manual) Monocytes # (Manual) ABG pH 7.529 H POC ABG pCO2 POC ABG pO2 66.1 L ABG Hemoglobin 11.2 L ABG Oxyhemoglobin 92.8 L ABG Sodium ABG Potassium ABG Chloride ABG Glucose 216 H Carboxyhemoglobin 0.3 L Sodium Potassium Chloride BUN 82 H Creatinine 2.7 H Glucose 238 H POC Glucose 202 H Calcium Phosphorus Magnesium AST ALT Total Creatine Kinase CK-MB (CK-2) Troponin T Total Protein Albumin HDL Cholesterol TSH Free T3 Index Arterial Blood Glucose 216 H Arterial Blood Ionized Calcium Urine pH Urine WBC (Auto) Urine Creatinine Acetaminophen 04/26/21 04/26/21 04/26/21 09:30 11:32 17:21 WBC 24.7 H RBC 3.32 L Hgb Hct MCV RDW Plt Count Lymph % (Auto) Seg Neutrophils % Seg Neuts % (Manual) Lymphocytes % (Manual) Monocytes % (Manual) Seg Neutrophils # Seg Neutrophils # Man Lymphocytes # (Manual) Monocytes # (Manual) ABG pH POC ABG pCO2 POC ABG pO2 ABG Hemoglobin ABG Oxyhemoglobin ABG Sodium ABG Potassium ABG Chloride ABG Glucose Carboxyhemoglobin Sodium Potassium Chloride BUN Creatinine Glucose POC Glucose 245 H 264 H Calcium Phosphorus Magnesium AST ALT Total Creatine Kinase CK-MB (CK-2) Troponin T Total Protein Albumin HDL Cholesterol TSH Free T3 Index Arterial Blood Glucose Arterial Blood Ionized Calcium Urine pH Urine WBC (Auto) Urine Creatinine Acetaminophen 04/26/21 04/27/21 04/27/21 23:18 04:23 04:54 WBC RBC Hgb Hct MCV RDW Plt Count Lymph % (Auto) Seg Neutrophils % Seg Neuts % (Manual) Lymphocytes % (Manual) Monocytes % (Manual) Seg Neutrophils # Seg Neutrophils # Man Lymphocytes # (Manual) Monocytes # (Manual) ABG pH 7.549 H POC ABG pCO2 30.0 L POC ABG pO2 64.9 L ABG Hemoglobin 11 L ABG Oxyhemoglobin 93.3 L ABG Sodium ABG Potassium ABG Chloride ABG Glucose 325 H Carboxyhemoglobin 0.3 L Sodium Potassium Chloride BUN Creatinine Glucose POC Glucose 201 H 298 H Calcium Phosphorus Magnesium AST ALT Total Creatine Kinase CK-MB (CK-2) Troponin T Total Protein Albumin HDL Cholesterol TSH Free T3 Index Arterial Blood Glucose 325 H Arterial Blood Ionized Calcium Urine pH Urine WBC (Auto) Urine Creatinine Acetaminophen 04/27/21 04/27/21 04/27/21 07:52 07:52 11:22 WBC 23.0 H RBC 3.32 L Hgb Hct MCV RDW 15.5 H Plt Count Lymph % (Auto) Seg Neutrophils % Seg Neuts % (Manual) Lymphocytes % (Manual) Monocytes % (Manual) Seg Neutrophils # Seg Neutrophils # Man Lymphocytes # (Manual) Monocytes # (Manual) ABG pH POC ABG pCO2 POC ABG pO2 ABG Hemoglobin ABG Oxyhemoglobin ABG Sodium ABG Potassium ABG Chloride ABG Glucose Carboxyhemoglobin Sodium Potassium 3.5 L Chloride BUN 90 H Creatinine 2.8 H Glucose 286 H POC Glucose 251 H Calcium Phosphorus Magnesium AST ALT Total Creatine Kinase CK-MB (CK-2) Troponin T Total Protein Albumin HDL Cholesterol TSH Free T3 Index Arterial Blood Glucose Arterial Blood Ionized Calcium Urine pH Urine WBC (Auto) Urine Creatinine Acetaminophen 04/27/21 04/27/21 04/27/21 17:21 17:45 23:05 WBC RBC Hgb Hct MCV RDW Plt Count Lymph % (Auto) Seg Neutrophils % Seg Neuts % (Manual) Lymphocytes % (Manual) Monocytes % (Manual) Seg Neutrophils # Seg Neutrophils # Man Lymphocytes # (Manual) Monocytes # (Manual) ABG pH POC ABG pCO2 POC ABG pO2 ABG Hemoglobin ABG Oxyhemoglobin ABG Sodium ABG Potassium ABG Chloride ABG Glucose Carboxyhemoglobin Sodium Potassium Chloride BUN Creatinine Glucose POC Glucose 180 H 178 H 189 H Calcium Phosphorus Magnesium AST ALT Total Creatine Kinase CK-MB (CK-2) Troponin T Total Protein Albumin HDL Cholesterol TSH Free T3 Index Arterial Blood Glucose Arterial Blood Ionized Calcium Urine pH Urine WBC (Auto) Urine Creatinine Acetaminophen 04/28/21 04/28/21 04/28/21 03:14 04:13 04:13 WBC 17.6 H RBC 3.03 L Hgb 9.7 L Hct 29.5 L MCV RDW Plt Count Lymph % (Auto) Seg Neutrophils % Seg Neuts % (Manual) Lymphocytes % (Manual) Monocytes % (Manual) Seg Neutrophils # Seg Neutrophils # Man Lymphocytes # (Manual) Monocytes # (Manual) ABG pH 7.507 H POC ABG pCO2 POC ABG pO2 62.0 L ABG Hemoglobin 10.2 L ABG Oxyhemoglobin 91.9 L ABG Sodium ABG Potassium ABG Chloride ABG Glucose 337 H Carboxyhemoglobin 0.2 L Sodium Potassium Chloride BUN 101 H Creatinine 3.1 H Glucose 304 H POC Glucose Calcium Phosphorus Magnesium AST 61 H ALT 64 H Total Creatine Kinase CK-MB (CK-2) Troponin T Total Protein 6.2 L Albumin 2.6 L HDL Cholesterol TSH Free T3 Index Arterial Blood Glucose 337 H Arterial Blood Ionized Calcium Urine pH Urine WBC (Auto) Urine Creatinine Acetaminophen 04/28/21 04/28/21 04/28/21 05:01 11:28 18:23 WBC RBC Hgb Hct MCV RDW Plt Count Lymph % (Auto) Seg Neutrophils % Seg Neuts % (Manual) Lymphocytes % (Manual) Monocytes % (Manual) Seg Neutrophils # Seg Neutrophils # Man Lymphocytes # (Manual) Monocytes # (Manual) ABG pH POC ABG pCO2 POC ABG pO2 ABG Hemoglobin ABG Oxyhemoglobin ABG Sodium ABG Potassium ABG Chloride ABG Glucose Carboxyhemoglobin Sodium Potassium Chloride BUN Creatinine Glucose POC Glucose 282 H 263 H 200 H Calcium Phosphorus Magnesium AST ALT Total Creatine Kinase CK-MB (CK-2) Troponin T Total Protein Albumin HDL Cholesterol TSH Free T3 Index Arterial Blood Glucose Arterial Blood Ionized Calcium Urine pH Urine WBC (Auto) Urine Creatinine Acetaminophen 04/28/21 04/29/21 04/29/21 23:49 03:24 04:22 WBC RBC Hgb Hct MCV RDW Plt Count Lymph % (Auto) Seg Neutrophils % Seg Neuts % (Manual) Lymphocytes % (Manual) Monocytes % (Manual) Seg Neutrophils # Seg Neutrophils # Man Lymphocytes # (Manual) Monocytes # (Manual) ABG pH 7.546 H POC ABG pCO2 POC ABG pO2 52.4 L ABG Hemoglobin 10.5 L ABG Oxyhemoglobin 88.3 L ABG Sodium ABG Potassium ABG Chloride ABG Glucose 217 H Carboxyhemoglobin 0.4 L Sodium 148 H Potassium Chloride BUN 110 H Creatinine 3.1 H Glucose 208 H POC Glucose 238 H Calcium Phosphorus Magnesium AST ALT Total Creatine Kinase CK-MB (CK-2) Troponin T Total Protein Albumin HDL Cholesterol TSH Free T3 Index Arterial Blood Glucose 217 H Arterial Blood Ionized Calcium Urine pH Urine WBC (Auto) Urine Creatinine Acetaminophen 04/29/21 04/29/21 04/29/21 04:22 05:08 11:26 WBC 15.2 H RBC 3.30 L Hgb 9.8 L Hct MCV RDW Plt Count Lymph % (Auto) Seg Neutrophils % Seg Neuts % (Manual) Lymphocytes % (Manual) Monocytes % (Manual) Seg Neutrophils # Seg Neutrophils # Man Lymphocytes # (Manual) Monocytes # (Manual) ABG pH POC ABG pCO2 POC ABG pO2 ABG Hemoglobin ABG Oxyhemoglobin ABG Sodium ABG Potassium ABG Chloride ABG Glucose Carboxyhemoglobin Sodium Potassium Chloride BUN Creatinine Glucose POC Glucose 181 H 218 H Calcium Phosphorus Magnesium AST ALT Total Creatine Kinase CK-MB (CK-2) Troponin T Total Protein Albumin HDL Cholesterol TSH Free T3 Index Arterial Blood Glucose Arterial Blood Ionized Calcium Urine pH Urine WBC (Auto) Urine Creatinine Acetaminophen 04/29/21 04/29/21 04/30/21 17:06 23:06 03:58 WBC RBC Hgb Hct MCV RDW Plt Count Lymph % (Auto) Seg Neutrophils % Seg Neuts % (Manual) Lymphocytes % (Manual) Monocytes % (Manual) Seg Neutrophils # Seg Neutrophils # Man Lymphocytes # (Manual) Monocytes # (Manual) ABG pH 7.547 H POC ABG pCO2 31.3 L POC ABG pO2 58.4 L ABG Hemoglobin 9.6 L ABG Oxyhemoglobin 91.1 L ABG Sodium ABG Potassium ABG Chloride 108.0 H ABG Glucose 248 H Carboxyhemoglobin 0.2 L Sodium Potassium Chloride BUN Creatinine Glucose POC Glucose 223 H 252 H Calcium Phosphorus Magnesium AST ALT Total Creatine Kinase CK-MB (CK-2) Troponin T Total Protein Albumin HDL Cholesterol TSH Free T3 Index Arterial Blood Glucose 248 H Arterial Blood Ionized Calcium Urine pH Urine WBC (Auto) Urine Creatinine Acetaminophen 04/30/21 04/30/21 04/30/21 05:23 05:54 11:47 WBC RBC Hgb Hct MCV RDW Plt Count Lymph % (Auto) Seg Neutrophils % Seg Neuts % (Manual) Lymphocytes % (Manual) Monocytes % (Manual) Seg Neutrophils # Seg Neutrophils # Man Lymphocytes # (Manual) Monocytes # (Manual) ABG pH POC ABG pCO2 POC ABG pO2 ABG Hemoglobin ABG Oxyhemoglobin ABG Sodium ABG Potassium ABG Chloride ABG Glucose Carboxyhemoglobin Sodium Potassium Chloride BUN 118 H Creatinine 3.3 H Glucose 263 H POC Glucose 244 H 237 H Calcium Phosphorus Magnesium AST ALT Total Creatine Kinase CK-MB (CK-2) Troponin T Total Protein Albumin HDL Cholesterol TSH Free T3 Index Arterial Blood Glucose Arterial Blood Ionized Calcium Urine pH Urine WBC (Auto) Urine Creatinine Acetaminophen 04/30/21 04/30/21 04/30/21 17:26 17:45 23:51 WBC RBC Hgb Hct MCV RDW Plt Count Lymph % (Auto) Seg Neutrophils % Seg Neuts % (Manual) Lymphocytes % (Manual) Monocytes % (Manual) Seg Neutrophils # Seg Neutrophils # Man Lymphocytes # (Manual) Monocytes # (Manual) ABG pH POC ABG pCO2 POC ABG pO2 ABG Hemoglobin ABG Oxyhemoglobin ABG Sodium ABG Potassium ABG Chloride ABG Glucose Carboxyhemoglobin Sodium Potassium Chloride BUN Creatinine Glucose POC Glucose 193 H 197 H Calcium Phosphorus Magnesium AST ALT Total Creatine Kinase CK-MB (CK-2) Troponin T Total Protein Albumin HDL Cholesterol TSH Free T3 Index Arterial Blood Glucose Arterial Blood Ionized Calcium Urine pH Urine WBC (Auto) 48.0 H Urine Creatinine Acetaminophen 05/01/21 05/01/21 05/01/21 04:02 04:57 07:11 WBC 12.3 H RBC 2.83 L Hgb 8.8 L Hct 27.3 L MCV RDW Plt Count Lymph % (Auto) Seg Neutrophils % Seg Neuts % (Manual) 80.0 H Lymphocytes % (Manual) 5.0 L Monocytes % (Manual) Seg Neutrophils # Seg Neutrophils # Man 9.8 H Lymphocytes # (Manual) 0.6 L Monocytes # (Manual) ABG pH 7.466 H POC ABG pCO2 POC ABG pO2 61.4 L ABG Hemoglobin 9.0 L ABG Oxyhemoglobin 91.1 L ABG Sodium ABG Potassium ABG Chloride 110.0 H ABG Glucose 245 H Carboxyhemoglobin Sodium Potassium Chloride BUN Creatinine Glucose POC Glucose 193 H Calcium Phosphorus Magnesium AST ALT Total Creatine Kinase CK-MB (CK-2) Troponin T Total Protein Albumin HDL Cholesterol TSH Free T3 Index Arterial Blood Glucose 245 H Arterial Blood Ionized Calcium Urine pH Urine WBC (Auto) Urine Creatinine Acetaminophen 05/01/21 05/01/21 05/01/21 07:11 07:45 11:30 WBC RBC Hgb Hct MCV RDW Plt Count Lymph % (Auto) Seg Neutrophils % Seg Neuts % (Manual) Lymphocytes % (Manual) Monocytes % (Manual) Seg Neutrophils # Seg Neutrophils # Man Lymphocytes # (Manual) Monocytes # (Manual) ABG pH POC ABG pCO2 POC ABG pO2 ABG Hemoglobin ABG Oxyhemoglobin ABG Sodium ABG Potassium ABG Chloride ABG Glucose Carboxyhemoglobin Sodium 146 H Potassium Chloride 108.4 H BUN 122 H Creatinine 3.4 H Glucose 235 H POC Glucose 212 H 247 H Calcium Phosphorus Magnesium AST ALT Total Creatine Kinase CK-MB (CK-2) Troponin T Total Protein Albumin HDL Cholesterol TSH Free T3 Index Arterial Blood Glucose Arterial Blood Ionized Calcium Urine pH Urine WBC (Auto) Urine Creatinine Acetaminophen 05/01/21 05/01/21 05/01/21 11:31 17:42 23:49 WBC RBC Hgb Hct MCV RDW Plt Count Lymph % (Auto) Seg Neutrophils % Seg Neuts % (Manual) Lymphocytes % (Manual) Monocytes % (Manual) Seg Neutrophils # Seg Neutrophils # Man Lymphocytes # (Manual) Monocytes # (Manual) ABG pH POC ABG pCO2 POC ABG pO2 ABG Hemoglobin ABG Oxyhemoglobin ABG Sodium ABG Potassium ABG Chloride ABG Glucose Carboxyhemoglobin Sodium Potassium Chloride BUN Creatinine Glucose POC Glucose 258 H 171 H 167 H Calcium Phosphorus Magnesium AST ALT Total Creatine Kinase CK-MB (CK-2) Troponin T Total Protein Albumin HDL Cholesterol TSH Free T3 Index Arterial Blood Glucose Arterial Blood Ionized Calcium Urine pH Urine WBC (Auto) Urine Creatinine Acetaminophen 05/02/21 05/02/21 05/02/21 05:12 08:34 11:53 WBC RBC Hgb Hct MCV RDW Plt Count Lymph % (Auto) Seg Neutrophils % Seg Neuts % (Manual) Lymphocytes % (Manual) Monocytes % (Manual) Seg Neutrophils # Seg Neutrophils # Man Lymphocytes # (Manual) Monocytes # (Manual) ABG pH POC ABG pCO2 POC ABG pO2 ABG Hemoglobin ABG Oxyhemoglobin ABG Sodium ABG Potassium ABG Chloride ABG Glucose Carboxyhemoglobin Sodium 148 H Potassium Chloride 110.4 H BUN 124 H Creatinine 3.4 H Glucose 208 H POC Glucose 163 H 185 H Calcium 8.3 L Phosphorus Magnesium AST ALT Total Creatine Kinase CK-MB (CK-2) Troponin T Total Protein Albumin HDL Cholesterol TSH Free T3 Index Arterial Blood Glucose Arterial Blood Ionized Calcium Urine pH Urine WBC (Auto) Urine Creatinine Acetaminophen 05/02/21 05/02/21 05/03/21 17:28 23:32 03:57 WBC RBC Hgb Hct MCV RDW Plt Count Lymph % (Auto) Seg Neutrophils % Seg Neuts % (Manual) Lymphocytes % (Manual) Monocytes % (Manual) Seg Neutrophils # Seg Neutrophils # Man Lymphocytes # (Manual) Monocytes # (Manual) ABG pH 7.531 H POC ABG pCO2 31.0 L POC ABG pO2 64.3 L ABG Hemoglobin 9.0 L ABG Oxyhemoglobin 92.6 L ABG Sodium 145.7 H ABG Potassium ABG Chloride 112.0 H ABG Glucose 202 H Carboxyhemoglobin Sodium Potassium Chloride BUN Creatinine Glucose POC Glucose 147 H 202 H Calcium Phosphorus Magnesium AST ALT Total Creatine Kinase CK-MB (CK-2) Troponin T Total Protein Albumin HDL Cholesterol TSH Free T3 Index Arterial Blood Glucose 202 H Arterial Blood Ionized Calcium Urine pH Urine WBC (Auto) Urine Creatinine Acetaminophen 05/03/21 05/03/21 05/03/21 05:14 05:44 11:10 WBC RBC Hgb Hct MCV RDW Plt Count Lymph % (Auto) Seg Neutrophils % Seg Neuts % (Manual) Lymphocytes % (Manual) Monocytes % (Manual) Seg Neutrophils # Seg Neutrophils # Man Lymphocytes # (Manual) Monocytes # (Manual) ABG pH POC ABG pCO2 POC ABG pO2 ABG Hemoglobin ABG Oxyhemoglobin ABG Sodium ABG Potassium ABG Chloride ABG Glucose Carboxyhemoglobin Sodium 147 H Potassium Chloride 109.7 H BUN 121 H Creatinine 3.1 H Glucose 190 H POC Glucose 175 H 202 H Calcium Phosphorus Magnesium AST ALT Total Creatine Kinase CK-MB (CK-2) Troponin T Total Protein Albumin HDL Cholesterol TSH Free T3 Index Arterial Blood Glucose Arterial Blood Ionized Calcium Urine pH Urine WBC (Auto) Urine Creatinine Acetaminophen 05/03/21 05/04/21 05/04/21 23:58 04:57 04:57 WBC RBC 2.61 L Hgb 8.2 L Hct 25.4 L MCV 98 H RDW 15.3 H Plt Count Lymph % (Auto) Seg Neutrophils % Seg Neuts % (Manual) Lymphocytes % (Manual) Monocytes % (Manual) Seg Neutrophils # Seg Neutrophils # Man Lymphocytes # (Manual) Monocytes # (Manual) ABG pH POC ABG pCO2 POC ABG pO2 ABG Hemoglobin ABG Oxyhemoglobin ABG Sodium ABG Potassium ABG Chloride ABG Glucose Carboxyhemoglobin Sodium 147 H Potassium Chloride 111.0 H BUN 104 H Creatinine 2.8 H Glucose 179 H POC Glucose 131 H Calcium Phosphorus Magnesium AST ALT Total Creatine Kinase CK-MB (CK-2) Troponin T Total Protein Albumin HDL Cholesterol TSH Free T3 Index Arterial Blood Glucose Arterial Blood Ionized Calcium Urine pH Urine WBC (Auto) Urine Creatinine Acetaminophen 05/04/21 05/04/21 05/04/21 05:19 11:28 17:02 WBC RBC Hgb Hct MCV RDW Plt Count Lymph % (Auto) Seg Neutrophils % Seg Neuts % (Manual) Lymphocytes % (Manual) Monocytes % (Manual) Seg Neutrophils # Seg Neutrophils # Man Lymphocytes # (Manual) Monocytes # (Manual) ABG pH POC ABG pCO2 POC ABG pO2 ABG Hemoglobin ABG Oxyhemoglobin ABG Sodium ABG Potassium ABG Chloride ABG Glucose Carboxyhemoglobin Sodium Potassium Chloride BUN Creatinine Glucose POC Glucose 168 H 206 H 213 H Calcium Phosphorus Magnesium AST ALT Total Creatine Kinase CK-MB (CK-2) Troponin T Total Protein Albumin HDL Cholesterol TSH Free T3 Index Arterial Blood Glucose Arterial Blood Ionized Calcium Urine pH Urine WBC (Auto) Urine Creatinine Acetaminophen 05/04/21 05/05/21 05/05/21 23:13 04:55 05:15 WBC RBC Hgb Hct MCV RDW Plt Count Lymph % (Auto) Seg Neutrophils % Seg Neuts % (Manual) Lymphocytes % (Manual) Monocytes % (Manual) Seg Neutrophils # Seg Neutrophils # Man Lymphocytes # (Manual) Monocytes # (Manual) ABG pH POC ABG pCO2 POC ABG pO2 ABG Hemoglobin ABG Oxyhemoglobin ABG Sodium ABG Potassium ABG Chloride ABG Glucose Carboxyhemoglobin Sodium Potassium Chloride BUN 91 H Creatinine 2.4 H Glucose 255 H POC Glucose 232 H 235 H Calcium Phosphorus Magnesium AST ALT Total Creatine Kinase CK-MB (CK-2) Troponin T Total Protein Albumin HDL Cholesterol TSH Free T3 Index Arterial Blood Glucose Arterial Blood Ionized Calcium Urine pH Urine WBC (Auto) Urine Creatinine Acetaminophen 05/05/21 05/05/21 05/05/21 11:41 17:46 23:40 WBC RBC Hgb Hct MCV RDW Plt Count Lymph % (Auto) Seg Neutrophils % Seg Neuts % (Manual) Lymphocytes % (Manual) Monocytes % (Manual) Seg Neutrophils # Seg Neutrophils # Man Lymphocytes # (Manual) Monocytes # (Manual) ABG pH POC ABG pCO2 POC ABG pO2 ABG Hemoglobin ABG Oxyhemoglobin ABG Sodium ABG Potassium ABG Chloride ABG Glucose Carboxyhemoglobin Sodium Potassium Chloride BUN Creatinine Glucose POC Glucose 199 H 231 H 224 H Calcium Phosphorus Magnesium AST ALT Total Creatine Kinase CK-MB (CK-2) Troponin T Total Protein Albumin HDL Cholesterol TSH Free T3 Index Arterial Blood Glucose Arterial Blood Ionized Calcium Urine pH Urine WBC (Auto) Urine Creatinine Acetaminophen 05/06/21 05/06/21 05/06/21 04:00 05:37 07:12 WBC RBC Hgb Hct MCV RDW Plt Count Lymph % (Auto) Seg Neutrophils % Seg Neuts % (Manual) Lymphocytes % (Manual) Monocytes % (Manual) Seg Neutrophils # Seg Neutrophils # Man Lymphocytes # (Manual) Monocytes # (Manual) ABG pH 7.464 H POC ABG pCO2 POC ABG pO2 74.2 L ABG Hemoglobin 10.5 L ABG Oxyhemoglobin ABG Sodium ABG Potassium ABG Chloride 110.0 H ABG Glucose 214 H Carboxyhemoglobin 0.4 L Sodium 146 H Potassium Chloride 110.4 H BUN 82 H Creatinine 2.3 H Glucose 154 H POC Glucose 165 H Calcium Phosphorus Magnesium AST ALT Total Creatine Kinase CK-MB (CK-2) Troponin T Total Protein Albumin HDL Cholesterol TSH Free T3 Index Arterial Blood Glucose 214 H Arterial Blood Ionized Calcium Urine pH Urine WBC (Auto) Urine Creatinine Acetaminophen 05/06/21 05/06/21 05/07/21 17:11 23:40 05:26 WBC RBC Hgb Hct MCV RDW Plt Count Lymph % (Auto) Seg Neutrophils % Seg Neuts % (Manual) Lymphocytes % (Manual) Monocytes % (Manual) Seg Neutrophils # Seg Neutrophils # Man Lymphocytes # (Manual) Monocytes # (Manual) ABG pH POC ABG pCO2 POC ABG pO2 ABG Hemoglobin ABG Oxyhemoglobin ABG Sodium ABG Potassium ABG Chloride ABG Glucose Carboxyhemoglobin Sodium Potassium Chloride BUN Creatinine Glucose POC Glucose 126 H 165 H 156 H Calcium Phosphorus Magnesium AST ALT Total Creatine Kinase CK-MB (CK-2) Troponin T Total Protein Albumin HDL Cholesterol TSH Free T3 Index Arterial Blood Glucose Arterial Blood Ionized Calcium Urine pH Urine WBC (Auto) Urine Creatinine Acetaminophen 05/07/21 05/07/21 05/07/21 08:20 08:20 11:35 WBC RBC 2.58 L Hgb 7.9 L Hct 24.9 L MCV RDW Plt Count Lymph % (Auto) Seg Neutrophils % Seg Neuts % (Manual) Lymphocytes % (Manual) Monocytes % (Manual) Seg Neutrophils # Seg Neutrophils # Man Lymphocytes # (Manual) Monocytes # (Manual) ABG pH POC ABG pCO2 POC ABG pO2 ABG Hemoglobin ABG Oxyhemoglobin ABG Sodium ABG Potassium ABG Chloride ABG Glucose Carboxyhemoglobin Sodium Potassium Chloride 108.4 H BUN 81 H Creatinine 2.4 H Glucose 133 H POC Glucose 112 H Calcium Phosphorus Magnesium AST ALT Total Creatine Kinase CK-MB (CK-2) Troponin T Total Protein Albumin HDL Cholesterol TSH Free T3 Index Arterial Blood Glucose Arterial Blood Ionized Calcium Urine pH Urine WBC (Auto) Urine Creatinine Acetaminophen 05/07/21 05/07/21 05/08/21 17:51 23:27 03:05 WBC RBC Hgb Hct MCV RDW Plt Count Lymph % (Auto) Seg Neutrophils % Seg Neuts % (Manual) Lymphocytes % (Manual) Monocytes % (Manual) Seg Neutrophils # Seg Neutrophils # Man Lymphocytes # (Manual) Monocytes # (Manual) ABG pH 7.454 H POC ABG pCO2 POC ABG pO2 82.1 L ABG Hemoglobin 8.1 L ABG Oxyhemoglobin ABG Sodium ABG Potassium 4.8 H ABG Chloride 111.0 H ABG Glucose 194 H Carboxyhemoglobin Sodium Potassium Chloride BUN Creatinine Glucose POC Glucose 136 H 133 H Calcium Phosphorus Magnesium AST ALT Total Creatine Kinase CK-MB (CK-2) Troponin T Total Protein Albumin HDL Cholesterol TSH Free T3 Index Arterial Blood Glucose 194 H Arterial Blood Ionized Calcium Urine pH Urine WBC (Auto) Urine Creatinine Acetaminophen 05/08/21 05/08/21 05/08/21 05:52 07:07 07:07 WBC 12.0 H RBC 2.94 L Hgb 9.0 L Hct 28.5 L MCV RDW Plt Count Lymph % (Auto) Seg Neutrophils % Seg Neuts % (Manual) Lymphocytes % (Manual) Monocytes % (Manual) Seg Neutrophils # Seg Neutrophils # Man Lymphocytes # (Manual) Monocytes # (Manual) ABG pH POC ABG pCO2 POC ABG pO2 ABG Hemoglobin ABG Oxyhemoglobin ABG Sodium ABG Potassium ABG Chloride ABG Glucose Carboxyhemoglobin Sodium Potassium Chloride BUN 73 H Creatinine 2.2 H Glucose 211 H POC Glucose 194 H Calcium Phosphorus Magnesium AST ALT Total Creatine Kinase CK-MB (CK-2) Troponin T Total Protein Albumin HDL Cholesterol TSH Free T3 Index Arterial Blood Glucose Arterial Blood Ionized Calcium Urine pH Urine WBC (Auto) Urine Creatinine Acetaminophen 05/08/21 05/08/21 05/08/21 11:19 17:20 23:22 WBC RBC Hgb Hct MCV RDW Plt Count Lymph % (Auto) Seg Neutrophils % Seg Neuts % (Manual) Lymphocytes % (Manual) Monocytes % (Manual) Seg Neutrophils # Seg Neutrophils # Man Lymphocytes # (Manual) Monocytes # (Manual) ABG pH POC ABG pCO2 POC ABG pO2 ABG Hemoglobin ABG Oxyhemoglobin ABG Sodium ABG Potassium ABG Chloride ABG Glucose Carboxyhemoglobin Sodium Potassium Chloride BUN Creatinine Glucose POC Glucose 231 H 251 H 295 H Calcium Phosphorus Magnesium AST ALT Total Creatine Kinase CK-MB (CK-2) Troponin T Total Protein Albumin HDL Cholesterol TSH Free T3 Index Arterial Blood Glucose Arterial Blood Ionized Calcium Urine pH Urine WBC (Auto) Urine Creatinine Acetaminophen 05/09/21 05/09/21 05/09/21 05:39 07:36 11:39 WBC RBC Hgb Hct MCV RDW Plt Count Lymph % (Auto) Seg Neutrophils % Seg Neuts % (Manual) Lymphocytes % (Manual) Monocytes % (Manual) Seg Neutrophils # Seg Neutrophils # Man Lymphocytes # (Manual) Monocytes # (Manual) ABG pH POC ABG pCO2 POC ABG pO2 ABG Hemoglobin ABG Oxyhemoglobin ABG Sodium ABG Potassium ABG Chloride ABG Glucose Carboxyhemoglobin Sodium Potassium Chloride BUN 64 H Creatinine 2.2 H Glucose 308 H POC Glucose 240 H 330 H Calcium Phosphorus Magnesium AST ALT Total Creatine Kinase CK-MB (CK-2) Troponin T Total Protein Albumin HDL Cholesterol TSH Free T3 Index Arterial Blood Glucose Arterial Blood Ionized Calcium Urine pH Urine WBC (Auto) Urine Creatinine Acetaminophen Chest x-ray: pending Allied health notes reviewed: nursing
[2021-05-09] MEDS: SODIUM CHLORIDE 0.45% 1000 ML 1,000 ML IV SCH (13:22)
--- NOTE | 2021-05-09 14:38 | Progress Note ---
Assessment and Plan This is a 80-year-old female with HTN, DM, DE, breast CA s/p double mastectomy, TIA who presented with hypoglycemia, AMS who was admitted with SIRS, symptomatic bradycardia, acute metabolic encephalopathy, acute hypoxic respiratory failure, elevated TSH, hyperglycemia, hyponatremia, hypokalemia, ROJELIO and rhabdomyolysis Acute metabolic encephalopathy-persist Acute hypoxic respiratory failure (extubated 04/20)- Re-intubated secondary to S tridor and paradoxical breathing - s/p trach and PEG First-degree heart block Resolved ileus versus mechanical obstruction Acute kidney injury with vasomotor nephropathy UTI, Pseudomonas/ Earline Elevated TSH Mild rhabdomyolysis Hypertension Diabetes mellitus with hyperglycemia on admission CAD Hypothyroidism Chronic illness debilitymyopathy Obesity -CCM, nephrology, neurology, cardiology consulted, patient recommendations -S/p D10 and D5W gtt, on TF -S/p IV calcium gluconate, regular insulin, D50 -S/p transcutaneous pacing, intermittent demand pacer in place -Renal ultrasound findings consistent with acute on chronic kidney disease, mildly complex right renal cyst -Blood pressure monitoring per protocol -Accu-Cheks every 6, SSI, long acting insulin -IV hydralazine as needed -04/25 EEG is mildly abnormal with mild slowing noted throughout the recording, suggestive of mild cortical dysfunction and/or drug effect -04/20 EEG shows mildly abnormal record due to diffuse background slowing noted throughout the recording, intermittent motion artifact, patient intubated and sedated at time of study, no sign of seizures as well epilepticus noted, possible toxic metabolic encephalopathy, drug effect, possible postictal state cannot be totally excluded. -Avoid ACEi/ARB in setting of ROJELIO -Avoid AV arron blocking agents -Avoid nephrotoxic agents and renally dose medications -BB, add home antihtn regimen as needed -TSH 14.1, T4 4.1, T3 1.1-started on levothyroxine -As needed racemic epinephrine -S/p steroids -s/p Antibiotic therapy -Trend CBC, BMP DVT/GI prophylaxis: Heparin subcu, PPI, SCDs to bilateral lower extremities while in bed Disposition: ICU The high probability of a clinically significant, sudden or life threatening deterioration of the [PULMONARY, CARDIAC, RENAL] system(s) required my full and direct attention, intervention and personal management. The aggregate critical care time was [35] minutes. This time is in addition to time spent performing reported procedures but includes the following: [X] Data Review and interpretation [X] Patient assessment and monitoring of vital signs [X] Documentation [X] Medication orders and management Brief history This is a 80-year-old female with hypertension, diabetes mellitus, DE, breast cancer s/p double mastectomy, and a TIA who presented with hypoglycemia and altered mental status on 04/15 via EMS. Per EMS patient was unresponsive on their arrival and her blood glucose was 38 and she received 1 amp of dextrose patient continued to be unresponsive and only moaned with her eyes deviating to the left. Work-up in the emergency department revealed SIRS, symptomatic bradycardia, acute metabolic encephalopathy, acute hypoxic respiratory failure, elevated TSH, hyperglycemia, hyponatremia, hyperkalemia, acute kidney injury with ATN, and rhabdomyolysis Daily clinical course; 04/16: Neurology consulted, COVID-19 PCR negative, D10 drip decreased and alicia ntually discontinued by [facility] and started on D5W for 1 L. Hydralazine as needed. Patient had hyper kalemia today and was treated with D50, insulin and Kayexalate. This time examination patient is on assist control tidal volume 450, rate of 16, PEEP of 6 and 25% FiO2. 04/17: Patient started on low-dose beta-angel per cardiology, CPAP trial again per [facility], BUN/creatinine holding steady and hypochloremia/hyponatremia slightly improved and hypokalemia has resolved. This morning a KUB was obtained which was concerning for ileus versus mechanical obstruction and surgery was consulted. Patient was made n.p.o. and NG tube placed to wall suction. Patient was given suppository. Per RN patient did not have a BM even though she was given Kayexalate yesterday. Will obtain a KUB in the a.m. Neurology was consulted yesterday and will await further recommendations. Nephew updated at bedside today, Carlos Romero. 04/18: Neurology has ordered EEG/MRI B, [facility] continues to wean MV. Persistent low grade temperature so we will obtain BCx2/UA. Patient has improving leukocytosis, hyponatremia, renal function studies and hypochloremia. She has hypokalemia today which is being repleted. Surgery has signed off today and has okayed resumption of TF. [facility] will trial CPAP for longer today and plans to attempt extubation in AM. Family has requested transfer to [facility] and Dr. Gordon will attempt to contact transfer center. I updated her nephew, Carlos Romero over the phone today abouyt current events and update on transfer ([facility] will conduct a utilization review) 04/19: This morning patient is on CPAP trial at the time of examination, noted to be hypertensive and metoprolol increased to home dose, started on synthroid by CCM, lantus started re hyperglycemia, MRI completed with no acute findings. Severe hypokalemia (repleted and Mg pending). CCM will contact CPAP trial again today with possible trial extubation tomorrow. 04/20: Patient's leukocytosis and kidney function tests continue to improve. Patient is hypertensive overnight we will restart home hydralazine. [facility] plans to extubate patient today. Family is attempting to transfer to another facility. EEG pending, RT will atmept to contact technology sales specialist. Urine culture grew gram negative rods. Increase in lantus 04/21: Increase in Lantus, repleted phos. Patient has started this afternoon and was given racemic epinephrine and started on steroids. Patient will have BiPAP as needed. We will recheck BMP in the a.m. renal function studies continues to decrease. Patient has been hypertensive on evaluation regimen has been changed . 04/22: Lantus increased for hyperglycemia and add amlodipine for better BP control. Patient is on steroids. OT suctioned by RN with catheter in oral care kit and received copious amounts of secretions. Cr continues to decrease. Culture grew Pseudomonas and was changed in accordance to sensitivity. Kerr removed today after clearance from nephrology. 04/23: MRI of the brain was done and unremarkable. Will obtain reconsult to nephrology for further assistance as patient remains in profound encephalopathy despite improvement of blood sugar. Will repeat chest x-ray as patient does have significant congestion physical exam. Tube feeds still ongoing. Continue aspiration precautions. Continue antibiotics when completed for Pseudomonas management 04/24: Neurology input noted, patient unfortunately with no improvement mental status [place], continues with congestion, will defer with Sanitary Napkin Machine Tender for lasix in the setting of renal failure. will give kayexlate for hyperkalemia, still moans and groans, mittens in place. 04/25: Patient currently intubated, on restraints for safety, Profund encephalopathy persist, although awake she is not following any commands, Call placed to [facility] to see if they will accept transfer for ENT evaluation, while CT neck was negative, it was degraded by motion and unable to determent why patient had this stridor, Racemic Epinephrine was given, [facility] is on ICU saturation, but will call back with an ENT to discuss case. Renal function mildly worse, continue to monitor. Per cardiology, no further arrhythmias noted since admission. Given short duration of atrial fibrillation, along with pt's age, renal fxn, and other co- morbidities,...will resume additional medical therapies for underlying severe multi-vessel CAD (bASA & Plavix). Pt has previously declined intervention of known lesions as per her Primary Pre Sales Network Engineer. 04/26: Now with febrile illness, ?developing infection, start on empiric abx, check lactate level, blood cultures, continue management per Pipe Jeeper, Monitor leukocytosis, agree with Trach, family updated about denials in transfer request from outside hospitals. 04/27: WBC improving some, still with fever despite antibotics, ID consulted. CXR clear, continue current management, Trach will be planned if ok with family. Bl ood sugar remains elevated, will adjust insulin LANTUS to 40 units. Patient had previously completed Cefepime. Mental status remains unchanged, still moves upper ext. continue restraints 04/28: Continue supportive care. No new fever noted. Critical care physician will determine if patient should be have a trial of extubation again or if we should proceed straight to trach. Again continue to monitor mental status for complete improvement. 04/29: Per Pipe Jeeper discussion with family, will proceed to Tracheostomy, Patients mental status still fluctuating, Continue current management. Surgeon consulted. 04/30: General surgery consulted for trach, continue to trend CBC and BMP. Kidney function slightly worsened today. Increase in Lantus. Tmax 100.2, per ID will consider imaging if leukocytosis remains elevated with fevers. Plavix held for possible tracheostomy next week. 05/01: Patient fever curve is trending down with improving leukocytosis. Patient renal function worsened today. She remains hyperglycemic and her Lantus was increased to her home dose of Novolin 70/30. Patient was rate controlled yesterday due to T-max of 101. She remains on CMV tidal volume 450, rate of 10, PEEP of 6 and 30% FiO2. We will increase the water flushes given slight hypernatremia. Dr. Andrea updated nephew (Carlos) at bedside. CPAP trails. 05/02: Patient's hypernatremia and hyperchloremia slightly worsened and femur fractures were increased. Kidney functions remain the same however BUN is in the 100s. Nephrology is following. Kerr catheter was removed. Awaiting trach placement with possibility on Friday. 05/03: Patient grew Earline in her urine culture however per ID and the Kerr was already exchanged. Patient is on cefepime and Flagyl. Plavix still on hold awaiting trach. CCM started the patient on half-normal saline at 75 mL/h for 2 L related to azatoma and hypernatremia. Patient mental status continues to wax and wane. Creatinine is 3.1 today from 3.4 yesterday. Patient had a bowel movement today. Patient remains hyperglycemic and Lantus was changed from a.m. to p.m.. 05/04: Patient's renal function is improving, surgery obtain consent for trach/PEG scheduled for 05/07, antibiotics to end tomorrow. We will obtain BMP in the a.m. Lantus dosage change from AC to at bedtime in hopes of better glycemic control. 05/05: Patient Lantus dose is changed to twice daily in hopes of better glycemic control. Awaiting surgical procedure hopefully on Friday. Patient's BUN/creatinine improved and hypernatremia has resolved. 05/06: Patient has slight hypernatremia and hyperchloremia and improvement to BUN/creatinine. Better glycemic control. Awaiting trach on Friday. NGT was displaced but now replaced and TF resumed. 05/07 This is a 80-year-old female with HTN, DM, DE, breast CA s/p double mastectomy, TIA who presented with hypoglycemia, AMS who was admitted with SIRS, symptomatic bradycardia, acute metabolic encephalopathy, acute hypoxic respiratory failure, elevated TSH, hyperglycemia, hyponatremia, hypokalemia, ROJELIO and rhabdomyolysis. She is for Trach and PEG today. 05/08: s/p trach and PEG placement yesterday. cont to monitor, wean off from vent as tolertaed 05/09: Patient started on tube feeding and tolerating well. Currently on CPAP setting with newly placed trach. Discussed with case management and patient would need placement. Continue supportive care and follow clinically. Subjective Date of service: 05/09/21 Principal diagnosis: Ac. resp failure; AMS; Hypoglycemia; ROJELIO; Hyperkalemia; DM II Interval history: Patient seen and examined. Medical records and medication list reviewed. No acute event overnight noted by the RN. Patient remains on trach tube, started on tube feeding - tolerating well Discussed plan of care at bedside with patient's RN. Objective - Exam Narrative Exam: General appearance: Present: no acute distress, intubated on mechanical ventilation - EENT Eyes: Present: PERRL, EOM intact - Neck Neck: Present: normal ROM, trach in place - Respiratory Respiratory effort: normal Respiratory: bilateral: diminished - Cardiovascular Rhythm: regular Heart Sounds: Present: S1 & S2. Absent: systolic murmur, diastolic murmur - Extremities Extremities: no ischemia, pulses intact, pulses symmetrical, normal temperature, normal color Peripheral Pulses: within normal limits - Abdominal General gastrointestinal: soft, non-tender, non-distended, normal bowel sounds - Integumentary Integumentary: Present: warm, dry - Psychiatric Psychiatric: cooperative - Neurologic Neurologic: moves all extremities - Constitutional Vitals: Vital Signs - 12hr 05/09/21 05/09/21 05/09/21 03:00 04:00 04:22 Temperature 98.7 F Pulse Rate 78 80 79 Pulse Rate [ Bilateral] Pulse Rate [ 83 From Monitor] Respiratory 17 18 Rate Respiratory Rate [Bilateral ] Blood Pressure 132/50 135/53 142/51 O2 Sat by Pulse 100 100 100 Oximetry 05/09/21 05/09/21 05/09/21 05:01 06:01 06:51 Temperature Pulse Rate 76 84 90 Pulse Rate [ Bilateral] Pulse Rate [ From Monitor] Respiratory 15 24 Rate Respiratory Rate [Bilateral ] Blood Pressure 107/53 145/46 155/60 O2 Sat by Pulse 100 100 Oximetry 05/09/21 05/09/21 05/09/21 07:00 07:55 07:58 Temperature 98.6 F Pulse Rate 86 89 86 Pulse Rate [ Bilateral] Pulse Rate [ From Monitor] Respiratory 16 19 Rate Respiratory Rate [Bilateral ] Blood Pressure 147/58 145/55 145/55 O2 Sat by Pulse 100 100 100 Oximetry 05/09/21 05/09/21 05/09/21 08:00 08:02 09:01 Temperature Pulse Rate 82 88 Pulse Rate [ 85 Bilateral] Pulse Rate [ From Monitor] Respiratory 24 26 H Rate Respiratory 24 Rate [Bilateral ] Blood Pressure 150/83 136/49 O2 Sat by Pulse 100 99 Oximetry 05/09/21 05/09/21 05/09/21 10:01 10:03 10:07 Temperature Pulse Rate 91 H 86 91 H Pulse Rate [ Bilateral] Pulse Rate [ From Monitor] Respiratory 32 H Rate Respiratory Rate [Bilateral ] Blood Pressure 138/62 138/62 138/62 O2 Sat by Pulse 100 Oximetry 05/09/21 05/09/21 05/09/21 11:00 11:44 12:00 Temperature 99.1 F Pulse Rate 78 78 Pulse Rate [ Bilateral] Pulse Rate [ From Monitor] Respiratory 22 18 Rate Respiratory Rate [Bilateral ] Blood Pressure 116/42 122/51 O2 Sat by Pulse 100 100 Oximetry 05/09/21 05/09/21 12:01 13:00 Temperature Pulse Rate 78 79 Pulse Rate [ Bilateral] Pulse Rate [ From Monitor] Respiratory 20 29 H Rate Respiratory Rate [Bilateral ] Blood Pressure 112/43 120/39 O2 Sat by Pulse 100 100 Oximetry - Labs CBC & Chem 7: 05/08/21 07:07 05/12/21 04:51 Labs: Abnormal lab results 05/08/21 05/08/21 05/09/21 Range/Units 17:20 23:22 05:39 BUN (7-17) mg/dL Creatinine (0.6-1.2) mg/dL Glucose (65-100) mg/dL POC Glucose 251 H 295 H 240 H (70-105) mg/dL 05/09/21 05/09/21 Range/Units 07:36 11:39 BUN 64 H (7-17) mg/dL Creatinine 2.2 H (0.6-1.2) mg/dL Glucose 308 H (65-100) mg/dL POC Glucose 330 H (70-105) mg/dL HEART Score - HEART Score Troponin: Troponin T 0.065 ng/mL (0.00-0.029) H 04/20/21 03:32
[2021-05-09] MEDS: ALBUTEROL 2.5 MG/3 ML NEBU IH PRN (16:40)
[2021-05-09] MEDS: ACETYLCYSTEINE 20% 200 MG/1 ML *FOR INHALATION USE INHALATION SCH (16:40)
[2021-05-09] MEDS: LATANOPROST 0.005% OPHTH SOLN 2.5 ML OU SCH (18:21)
[2021-05-09] MEDS: PRAVASTATIN 20 MG TAB PO SCH (21:08)
[2021-05-10] MEDS: INSULIN LISPRO 100 UNIT/ML SUB-Q SCH ×5 (00:26→23:32)
[2021-05-10] MEDS: ALBUTEROL 2.5 MG/3 ML NEBU IH PRN ×3 (00:34→15:14)
[2021-05-10] MEDS: ACETYLCYSTEINE 20% 200 MG/1 ML *FOR INHALATION USE INHALATION SCH ×3 (00:34→15:14)
[2021-05-10] MEDS: SODIUM CHLORIDE 0.45% 1000 ML 1,000 ML IV SCH (03:00)
[2021-05-10] MEDS: LEVOTHYROXINE 25 MCG TAB PO SCH (06:02)
[2021-05-10] MEDS: hydrALAZINE 25 MG TAB PO SCH ×3 (06:02→21:43)
[2021-05-10 06:09] LABS: Calcium 9.1 mg/dL (8.4-10.2)
[2021-05-10] MEDS: INSULIN NPH/REGULAR 70/30 INJ SUB-Q SCH ×2 (08:15→17:38)
[2021-05-10] MEDS: FAMOTIDINE 20 MG TAB PO SCH (09:14)
[2021-05-10] MEDS: TAMSULOSIN 0.4 MG CAP PO SCH (09:14)
[2021-05-10] MEDS: METOPROLOL TARTRATE 25 MG TAB PO SCH ×2 (09:15→21:44)
[2021-05-10] MEDS: ASPIRIN 81 MG TAB CHEW PO SCH (09:15)
[2021-05-10] MEDS: DOCUSATE SODIUM 100 MG/10 ML ORAL LIQD PO SCH ×2 (09:15→21:42)
[2021-05-10] MEDS: amLODIPine 10 MG TAB PO SCH (09:15)
--- NOTE | 2021-05-10 09:43 | Progress Note ---
Assessment and Plan 1. Acute kidney injury: Vasomotor ROJELIO. ATN likely. Renal US negative for hydro. Baseline renal function is unknown. Monitor renal function. Non-oliguric. On 2 NS. BUN level continue to improve. Creatinine leveled off. Renal prognosis is guarded. Avoid nephrotoxic agents. Meds dosage based on GFR. Monitor for [employer] needs. 2. FEN: Hypokalemia, improved, monitor. Hypernatremia, improved, monitor. Monitor lytes and volume status. 3. Acute hypoxemic respiratory failure: Extubated, re-intubated 04/24. Trached 05/07. 4. Acute encephalopathy: MRI brain negative. Seen by Neuro. 5. UTI: Pseudomonas and Earline. 6. Hypertension. 7. DM type 2. 8. Mild rhabdomyolysis. 9. Mildly complex R renal cyst. Subjective: Patient was seen and examined at the bedside. Examination: General appearance: well-developed, appears stated age, trached on vent HEENT: atraumatic Neck: trached Respiratory: Coarse breath sounds heard Heart: S1S2, no murmur Abdomen: soft, obese, bowel sounds heard, NT, PEG tube noted Integumentary: no obvious rash Neurologic: stuporous Ext: no edema noted : Kerr catheter Subjective Date of service: 05/10/21 Principal diagnosis: Ac. resp failure; AMS; Hypoglycemia; ROJELIO; Hyperkalemia; DM II Objective - Vital Signs Vital signs: Vital Signs - 12hr 05/09/21 05/09/21 05/10/21 22:00 23:00 00:00 Temperature 99.8 F H Pulse Rate 77 72 81 Pulse Rate [ Anterior Bilateral Throughout] Pulse Rate [ Bilateral] Pulse Rate [ 81 From Monitor] Respiratory 21 16 18 Rate Respiratory Rate [Anterior Bilateral Throughout] Respiratory Rate [Bilateral ] Blood Pressure 135/49 126/39 O2 Sat by Pulse 100 99 100 Oximetry O2 Sat by Pulse Oximetry [ Assessment] 05/10/21 05/10/21 05/10/21 00:01 00:34 00:36 Temperature Pulse Rate 82 77 Pulse Rate [ Anterior Bilateral Throughout] Pulse Rate [ 83 Bilateral] Pulse Rate [ From Monitor] Respiratory 23 Rate Respiratory Rate [Anterior Bilateral Throughout] Respiratory 26 H Rate [Bilateral ] Blood Pressure 117/50 119/47 O2 Sat by Pulse 99 100 Oximetry O2 Sat by Pulse Oximetry [ Assessment] 05/10/21 05/10/21 05/10/21 01:01 02:00 03:00 Temperature Pulse Rate 74 79 74 Pulse Rate [ Anterior Bilateral Throughout] Pulse Rate [ Bilateral] Pulse Rate [ From Monitor] Respiratory 18 15 17 Rate Respiratory Rate [Anterior Bilateral Throughout] Respiratory Rate [Bilateral ] Blood Pressure 122/36 124/47 113/41 O2 Sat by Pulse 100 99 100 Oximetry O2 Sat by Pulse Oximetry [ Assessment] 05/10/21 05/10/21 05/10/21 04:00 04:01 04:19 Temperature 99.2 F Pulse Rate 74 76 83 Pulse Rate [ Anterior Bilateral Throughout] Pulse Rate [ Bilateral] Pulse Rate [ 74 From Monitor] Respiratory 18 15 Rate Respiratory Rate [Anterior Bilateral Throughout] Respiratory Rate [Bilateral ] Blood Pressure 123/36 131/47 O2 Sat by Pulse 100 100 99 Oximetry O2 Sat by Pulse Oximetry [ Assessment] 05/10/21 05/10/21 05/10/21 04:31 05:01 06:01 Temperature Pulse Rate 81 80 Pulse Rate [ Anterior Bilateral Throughout] Pulse Rate [ Bilateral] Pulse Rate [ From Monitor] Respiratory 20 11 L Rate Respiratory Rate [Anterior Bilateral Throughout] Respiratory Rate [Bilateral ] Blood Pressure 136/48 124/51 O2 Sat by Pulse 100 100 Oximetry O2 Sat by Pulse 99 Oximetry [ Assessment] 05/10/21 05/10/21 05/10/21 07:00 08:00 08:01 Temperature 98.9 F Pulse Rate 75 75 Pulse Rate [ Anterior Bilateral Throughout] Pulse Rate [ Bilateral] Pulse Rate [ 82 From Monitor] Respiratory 13 18 12 Rate Respiratory Rate [Anterior Bilateral Throughout] Respiratory Rate [Bilateral ] Blood Pressure 138/48 125/40 O2 Sat by Pulse 100 100 100 Oximetry O2 Sat by Pulse Oximetry [ Assessment] 05/10/21 05/10/21 05/10/21 08:19 09:01 09:15 Temperature Pulse Rate 70 78 72 Pulse Rate [ 76 Anterior Bilateral Throughout] Pulse Rate [ Bilateral] Pulse Rate [ From Monitor] Respiratory 22 Rate Respiratory 19 Rate [Anterior Bilateral Throughout] Respiratory Rate [Bilateral ] Blood Pressure 115/55 137/47 137/47 O2 Sat by Pulse 100 100 Oximetry O2 Sat by Pulse 100 Oximetry [ Assessment] - Lab 05/08/21 07:07 05/10/21 05:36 Most recent lab results ABG pH 7.454 (7.320-7.450) H 05/08/21 03:05 ABG O2 Saturation 96.1 (0-100) 05/08/21 03:05 Calcium 9.1 mg/dL (8.4-10.2) 05/10/21 05:36 Phosphorus 2.60 mg/dL (2.5-4.5) 04/22/21 08:00 Magnesium 2.10 mg/dL (1.7-2.3) 04/23/21 07:02 Urine Creatinine 24.4 mg/dL (0.1-20.0) H 04/16/21 00:12 Urine Sodium 97 mmol/L 04/16/21 00:12 Medications & Allergies - Medications Allergies/Adverse Reactions: Allergies No Known Allergies Allergy (Unverified 04/15/21 17:41) Home Medications: Home Medications Medication Instructions Recorded Confirmed Last Taken Type Betaxolol HCl [Betoptic S 0.25% 1 drop OU BID 04/16/21 04/16/21 Unknown History SUSP] Bimatoprost [Lumigan 0.01%] 1 drop OU QPM 04/16/21 04/16/21 Unknown History Brimonidine Tartrate [Brimonidine 5 ml OU BID 04/16/21 04/16/21 Unknown History Tartrate 0.2%] Furosemide [Lasix TAB] 40 mg PO QDAY 04/16/21 04/16/21 Unknown History Gabapentin [Neurontin] 300 mg PO Q8HR 04/16/21 04/16/21 Unknown History HYDROcodone/APAP 10-325 [[place] 1 each PO Q6HR PRN 04/16/21 04/16/21 Unknown History 10/325] Hydralazine HCl 50 mg PO Q4HR 04/16/21 04/16/21 Unknown History Insulin Aspart Prot/Insuln Asp 52 units SQ HS 04/16/21 04/16/21 Unknown History [Novolog Mix 70-30 Flexpen] Metoprolol [Lopressor] 25 mg PO BID 04/16/21 04/16/21 Unknown History Pravastatin [Pravachol] 20 mg PO QHS 04/16/21 04/16/21 Unknown History Promethazine [Phenergan] 25 mg PO Q6HR 04/16/21 04/16/21 Unknown History allopurinoL [Zyloprim] 150 mg PO QDAY 04/16/21 04/16/21 Unknown History Active Medications: Generic Name Dose Route Start Last Admin Trade Name Freq PRN Reason Stop Dose Admin Acetaminophen 650 mg 04/15/21 19:11 04/30/21 20:14 Acetaminophen 325 Mg Tab PO 650 mg Q6H PRN Administration Pain MILD(1-3)/Fever >100.5/SEXTON Acetylcysteine 200 mg 05/09/21 16:00 05/10/21 08:19 Acetylcysteine 20% 200 Mg/1 Ml *For Inhalation Use* INHALATION 05/16/21 15:59 200 mg Q8HRT WOLFGANG Administration Albuterol 2.5 mg 05/09/21 13:16 05/10/21 08:17 Albuterol 2.5 Mg/3 Ml Nebu IH 2.5 mg Q6HRT PRN Administration Shortness Of Breath Amlodipine Besylate 10 mg 04/25/21 10:00 05/10/21 09:15 Amlodipine 10 Mg Tab PO 10 mg DAILY WOLFGANG Administration Lipase/Protease/Amylase 1 each 04/16/21 12:52 Lipase 10,500/Protease 25,000/Amylase 43,750 (Units) Dr Simpson FEEDTUBE PRN PRN For Clogged Feeding Tube Aspirin 81 mg 04/25/21 10:00 05/10/21 09:15 Aspirin 81 Mg Tab Chew PO 81 mg QDAY WOLFGANG Administration Bisacodyl 10 mg 04/17/21 11:01 05/03/21 09:50 Bisacodyl 10 Mg Rect Supp TN 10 mg QDAY PRN Administration Constipation Brimonidine Tartrate 1 drops 04/17/21 22:00 05/09/21 21:09 Brimonidine 0.15% Ophth Soln OU 1 drops BID WOLFGANG Administration Docusate Sodium 100 mg 04/29/21 15:00 05/10/21 09:15 Docusate Sodium 100 Mg/10 Ml Oral Liqd PO 100 mg BID WOLFGANG Administration Famotidine 20 mg 04/17/21 10:00 05/10/21 09:14 Famotidine 20 Mg Tab PO 20 mg DAILY WOLFGANG Administration Fentanyl 50 mcg 05/07/21 09:00 Fentanyl 100 Mcg/2 Ml Inj IV Q4H PRN Pain , Severe (7-10) Heparin Sodium (Porcine) 5,000 unit 04/15/21 22:00 05/09/21 21:07 Heparin 5,000 Unit/1 Ml Vial SUB-Q 5,000 unit Q12HR WOLFGANG Administration Hydralazine HCl 10 mg 04/16/21 18:00 04/24/21 05:25 Hydralazine 20 Mg/1 Ml Inj IV 10 mg Q4HR PRN Administration Hypertension Hydralazine HCl 50 mg 05/03/21 14:00 05/10/21 06:02 Hydralazine 25 Mg Tab PO Not Given Q8HR WOLFGANG Hydrophilic Ointment 1 applic 04/15/21 17:24 Lip Therapy Vaseline TP Q2HR PRN Dry Lips Sodium Chloride 1,000 mls @ 75 mls/hr 05/09/21 14:00 05/10/21 03:00 Nacl 0.45% 1000 Ml IV 05/11/21 03:19 75 mls/hr DIRECT WOLFGANG Administration Insulin Human Isoph/Insulin Regular 25 unit 05/09/21 08:00 05/10/21 08:15 Insulin Nph/Regular 70/30 Inj SUB-Q 25 unit BIDDIAB WOLFGANG Administration Insulin Human Lispro 0 unit 04/16/21 15:00 05/10/21 06:02 Insulin Lispro 100 Unit/Ml SUB-Q Not Given Q6HR [facility] Protocol Latanoprost 1 drops 04/17/21 18:00 05/09/21 18:21 Latanoprost 0.005% Ophth Soln 2.5 Ml OU 1 drops QPM WOLFGANG Administration Levothyroxine Sodium 25 mcg 04/19/21 06:00 05/10/21 06:02 Levothyroxine 25 Mcg Tab PO 25 mcg DAILY@0600 WOLFGANG Administration Metoprolol Tartrate 25 mg 04/19/21 10:00 05/10/21 09:15 Metoprolol Tartrate 25 Mg Tab PO 25 mg BID WOLFGANG Administration Multi-Ingred Cream/Lotion/Oil/Oint 1 applic 04/15/21 17:24 05/04/21 09:25 Mineral Oil/Petrolatum, White Ophth Oint 3.5 Gm OU 1 applic Q4HR PRN Administration Dry Eye(s) Pravastatin Sodium 20 mg 04/19/21 22:00 05/09/21 21:08 Pravastatin 20 Mg Tab PO 20 mg QHS WOLFGANG Administration Scopolamine 1 each 04/20/21 18:00 05/08/21 09:44 Scopolamine Transdermal Patch 72 Hr TD 1 each Q3D WOLFGANG Administration Simple Syrup 15 ml 04/16/21 12:52 Simple Syrup 15 Ml FEEDTUBE PRN PRN Hypoglycemia Simple Syrup 30 ml 04/16/21 12:52 Simple Syrup 15 Ml FEEDTUBE PRN PRN Hypoglycemia Sodium Bicarbonate 325 mg 04/16/21 12:52 Sodium Bicarbonate 325 Mg Tab FEEDTUBE PRN PRN For Clogged Feeding Tube Sodium Chloride 10 ml 04/15/21 22:00 05/09/21 21:08 Sodium Chloride 0.9% 10 Ml Flush Syringe IV 10 ml BID WOLFGANG Administration Sodium Chloride 10 ml 04/15/21 19:11 04/24/21 05:27 Sodium Chloride 0.9% 10 Ml Flush Syringe IV 10 ml PRN PRN Administration LINE FLUSH Tamsulosin HCl 0.4 mg 04/25/21 14:00 05/10/21 09:14 Tamsulosin 0.4 Mg Cap PO 0.4 mg QDAY WOLFGANG Administration Timolol Maleate 1 drops 04/19/21 10:00 05/09/21 10:05 Timolol 0.5% Ophth Soln 5 Ml OU 1 drops QDAY WOLFGANG Administration
[2021-05-10] MEDS: BRIMONIDINE 0.15% OPHTH SOLN OU SCH ×2 (09:49→21:45)
[2021-05-10] MEDS: HEPARIN 5,000 UNIT/1 ML VIAL SUB-Q SCH ×2 (09:49→21:42)
[2021-05-10] MEDS: TIMOLOL 0.5% OPHTH SOLN 5 ML OU SCH (09:50)
--- NOTE | 2021-05-10 15:19 | Progress Note ---
Assessment and Plan Acute respiratory failure, on mechanical ventilatory support. Acute toxic metabolic encephalopathy Hypoglycemia ROJELIO Hyperkalemia Rhabdomyolysis Possible seizure activity DM II HTN CAD Obesity H/O breast cancer H/O TIA Leukocytosis Elevated serum TSH, possible hypothyroidism - get CXR and address - suspect acute pulmonary edema; stop IVF - increase Flomax dose re: retention of 2 Liters - add Robinul 1mg p.o. tid re: increased secretions - follow BUN/CR - LTAC evaluation ongoing - continue care as below otherwise; - continue to wean supplemental oxygen for target O2 sat's > 90% acutely - VAP bundle addressed - continue lung protective strategies - continue bronchodilators with pulmonary hygiene per RT - continue Daily SAT and SBT assessment as tolerated - wean per pulmonary driven protocols otherwise - continue accuchecks with glycemic control per SSI (While critically ill target blood glucose of 140-180 mg/dL; avoid hypoglycemia) - sedation prn for target RASS 0 to -1 - avoid nephrotoxins, renally dose all medications - continue to avoid benzodiazepine's, reduce the possibility of delirium - complete AB's per ID rec's re: Cefepime and Flagyl - follow clinically trend fevers / WBC - prn analgesia per CPOT score - Maintenance of sleep-wake cycle, avoid delirium - continue enteral nutritional support at goal rate as tolerated - G.I. & VTE prophylaxis - PT/OT/ROM exercises - continue Flomax re: retention - continue mobility protocols for pressure ulcer prophylaxis - Monitor hemodynamics closely - continue other care per attending / other consultants - discharge planning ongoing concurrently .... Re-evaluate in am & prn CONDITION: CRITICAL PROGNOSIS: GUARDED CODE STATUS: FULL CODE The high probability of a clinically significant, sudden or life-threatening deterioration of the [respiratory, cardiovascular, GI & neurologic] system(s) required my full and direct attention, intervention and personal management. The aggregate critical care time was [33] minutes without overlap. Time includes s pent on; [x] Data Review and interpretation [x] Patient assessment and monitoring of vital signs [x] Documentation [x] Medication orders and management Subjective Date of service: 05/10/21 Principal diagnosis: Ac. resp failure; AMS; Hypoglycemia; ROJELIO; Hyperkalemia; DM II Interval history: Patient is seen today for: Acute respiratory failure; AMS; Hypoglycemia; ROJELIO; Hyperkalemia; DM II; H/O breast cancer; Elevated serum TSH, possible hypothyroidism Seen and examined at bedside; 24hour events reviewed; nursing and respiratory care staff consulted; no adverse overnight events reported to me; resting peacefully in bed; remains on MVS; p-supp down to 10 but work of breathing increased; also now with pinkish frothy secretions; AMS is persistent; afebrile Objective Vital Signs - 12hr 05/10/21 05/10/21 05/10/21 04:00 04:01 04:19 Temperature 99.2 F Pulse Rate 74 76 83 Pulse Rate [ Anterior Bilateral Throughout] Pulse Rate [ 74 From Monitor] Respiratory 18 15 Rate Respiratory Rate [Anterior Bilateral Throughout] Blood Pressure 123/36 131/47 O2 Sat by Pulse 100 100 99 Oximetry O2 Sat by Pulse Oximetry [ Assessment] 05/10/21 05/10/21 05/10/21 04:31 05:01 06:01 Temperature Pulse Rate 81 80 Pulse Rate [ Anterior Bilateral Throughout] Pulse Rate [ From Monitor] Respiratory 20 11 L Rate Respiratory Rate [Anterior Bilateral Throughout] Blood Pressure 136/48 124/51 O2 Sat by Pulse 100 100 Oximetry O2 Sat by Pulse 99 Oximetry [ Assessment] 05/10/21 05/10/21 05/10/21 07:00 08:00 08:01 Temperature 98.9 F Pulse Rate 75 75 Pulse Rate [ Anterior Bilateral Throughout] Pulse Rate [ 82 From Monitor] Respiratory 13 18 12 Rate Respiratory Rate [Anterior Bilateral Throughout] Blood Pressure 138/48 125/40 O2 Sat by Pulse 100 100 100 Oximetry O2 Sat by Pulse Oximetry [ Assessment] 05/10/21 05/10/21 05/10/21 08:19 09:01 09:15 Temperature Pulse Rate 70 78 72 Pulse Rate [ 76 Anterior Bilateral Throughout] Pulse Rate [ From Monitor] Respiratory 22 Rate Respiratory 19 Rate [Anterior Bilateral Throughout] Blood Pressure 115/55 137/47 137/47 O2 Sat by Pulse 100 100 Oximetry O2 Sat by Pulse 100 Oximetry [ Assessment] 05/10/21 05/10/21 05/10/21 10:01 11:00 11:01 Temperature Pulse Rate 76 68 74 Pulse Rate [ Anterior Bilateral Throughout] Pulse Rate [ From Monitor] Respiratory 31 H 23 24 Rate Respiratory Rate [Anterior Bilateral Throughout] Blood Pressure 117/45 125/56 123/51 O2 Sat by Pulse 95 100 100 Oximetry O2 Sat by Pulse Oximetry [ Assessment] 0605/10/21 05/10/21 11:47 12:00 13:14 Temperature 98.5 F Pulse Rate 71 77 Pulse Rate [ Anterior Bilateral Throughout] Pulse Rate [ 79 From Monitor] Respiratory 17 Rate Respiratory Rate [Anterior Bilateral Throughout] Blood Pressure 129/59 145/49 O2 Sat by Pulse 99 Oximetry O2 Sat by Pulse Oximetry [ Assessment] Constitutional: no acute distress, other (elderly obese female with mildly increased respiratory effort at rest on MVS) Eyes: non-icteric ENT: oropharynx moist, oropharyngeal exudate pre, other (+ midline tracheostomy without bleeding stoma) Neck: supple, no lymphadenopathy, no JVD, other (large circumference) Effort: mildly labored Ascultation: Bilateral: diminished breath sounds, rales Percussion: Bilateral: not dull Cardiovascular: regular rate and rhythm, other (S1,S2) Gastrointestinal: normoactive bowel sounds, hypoactive bowel sounds, non-tender, non-distended (protuberant) Integumentary: normal Extremities: no cyanosis, no edema, pulses normal, no ischemia or petechiae Neurologic: non-focal exam (tracks voice), pupils equal and round, CN II-XII normal, motor strength normal and Psychiatric: other (falt affect) CBC and BMP: 05/08/21 07:07 05/10/21 05:36 ABG, PT/INR, D-dimer: ABG ABG pH 7.454 (7.320-7.450) H 05/08/21 03:05 POC ABG pCO2 34.2 mmHg (32.0-48.0) 05/08/21 03:05 POC ABG pO2 82.1 mmHg (83-108) L 05/08/21 03:05 POC ABG HCO3 23.5 05/08/21 03:05 ABG O2 Saturation 96.1 (0-100) 05/08/21 03:05 PT/INR, D-dimer PT 14.8 Sec. (12.2-14.9) 05/07/21 08:20 INR 1.11 (0.87-1.13) 05/07/21 08:20 Abnormal lab findings: Abnormal Labs 04/15/21 04/15/21 04/15/21 17:00 17:20 17:20 WBC 11.2 H RBC Hgb Hct 43.0 H MCV RDW 15.3 H Plt Count Lymph % (Auto) 12.8 L Seg Neutrophils % 82.4 H Seg Neuts % (Manual) Lymphocytes % (Manual) Monocytes % (Manual) Seg Neutrophils # 9.3 H Seg Neutrophils # Man Lymphocytes # (Manual) Monocytes # (Manual) ABG pH POC ABG pCO2 POC ABG pO2 ABG Hemoglobin ABG Oxyhemoglobin ABG Sodium ABG Potassium ABG Chloride ABG Glucose Carboxyhemoglobin Sodium 129 L Potassium 7.1 H* Chloride 91.9 L BUN 35 H Creatinine 2.8 H Glucose POC Glucose 191 H Calcium Phosphorus Magnesium AST 69 H ALT Total Creatine Kinase CK-MB (CK-2) Troponin T Total Protein Albumin HDL Cholesterol TSH Free T3 Index Arterial Blood Glucose Arterial Blood Ionized Calcium Urine pH Urine WBC (Auto) Urine Creatinine Acetaminophen 04/15/21 04/15/21 04/15/21 17:20 17:20 17:20 WBC RBC Hgb Hct MCV RDW Plt Count Lymph % (Auto) Seg Neutrophils % Seg Neuts % (Manual) Lymphocytes % (Manual) Monocytes % (Manual) Seg Neutrophils # Seg Neutrophils # Man Lymphocytes # (Manual) Monocytes # (Manual) ABG pH POC ABG pCO2 POC ABG pO2 ABG Hemoglobin ABG Oxyhemoglobin ABG Sodium ABG Potassium ABG Chloride ABG Glucose Carboxyhemoglobin Sodium Potassium Chloride BUN Creatinine Glucose POC Glucose Calcium Phosphorus Magnesium AST ALT Total Creatine Kinase 1000 H CK-MB (CK-2) Troponin T Total Protein Albumin HDL Cholesterol TSH 14.190 H Free T3 Index Arterial Blood Glucose Arterial Blood Ionized Calcium Urine pH Urine WBC (Auto) Urine Creatinine Acetaminophen 5.0 L 04/15/21 04/15/21 04/15/21 20:49 21:23 23:15 WBC RBC Hgb Hct MCV RDW Plt Count Lymph % (Auto) Seg Neutrophils % Seg Neuts % (Manual) Lymphocytes % (Manual) Monocytes % (Manual) Seg Neutrophils # Seg Neutrophils # Man Lymphocytes # (Manual) Monocytes # (Manual) ABG pH 7.557 H POC ABG pCO2 30.0 L POC ABG pO2 493.3 H ABG Hemoglobin ABG Oxyhemoglobin 99.0 H ABG Sodium 131.5 L ABG Potassium 4.7 H ABG Chloride 94.0 L ABG Glucose 218 H Carboxyhemoglobin Sodium Potassium Chloride BUN Creatinine Glucose POC Glucose 173 H 207 H Calcium Phosphorus Magnesium AST ALT Total Creatine Kinase CK-MB (CK-2) Troponin T Total Protein Albumin HDL Cholesterol TSH Free T3 Index Arterial Blood Glucose 218 H Arterial Blood Ionized Calcium 5.4 H Urine pH Urine WBC (Auto) Urine Creatinine Acetaminophen 04/16/21 04/16/21 04/16/21 00:09 00:12 00:19 WBC RBC Hgb Hct MCV RDW Plt Count Lymph % (Auto) Seg Neutrophils % Seg Neuts % (Manual) Lymphocytes % (Manual) Monocytes % (Manual) Seg Neutrophils # Seg Neutrophils # Man Lymphocytes # (Manual) Monocytes # (Manual) ABG pH POC ABG pCO2 POC ABG pO2 ABG Hemoglobin ABG Oxyhemoglobin ABG Sodium ABG Potassium ABG Chloride ABG Glucose Carboxyhemoglobin Sodium Potassium 6.7 H* Chloride BUN Creatinine Glucose POC Glucose Calcium Phosphorus Magnesium AST ALT Total Creatine Kinase CK-MB (CK-2) Troponin T Total Protein Albumin HDL Cholesterol TSH Free T3 Index Arterial Blood Glucose Arterial Blood Ionized Calcium Urine pH 9.0 H Urine WBC (Auto) Urine Creatinine 24.4 H Acetaminophen 04/16/21 04/16/21 04/16/21 03:43 03:55 05:02 WBC 21.2 H RBC Hgb Hct 43.4 H MCV 98 H RDW Plt Count Lymph % (Auto) Seg Neutrophils % Seg Neuts % (Manual) 84.0 H Lymphocytes % (Manual) 2.0 L Monocytes % (Manual) 10.0 H Seg Neutrophils # Seg Neutrophils # Man 17.8 H Lymphocytes # (Manual) 0.4 L Monocytes # (Manual) 2.1 H ABG pH 7.461 H POC ABG pCO2 POC ABG pO2 ABG Hemoglobin ABG Oxyhemoglobin ABG Sodium 126.8 L ABG Potassium 5.4 H ABG Chloride 90.0 L ABG Glucose 325 H Carboxyhemoglobin Sodium Potassium Chloride BUN Creatinine Glucose POC Glucose 391 H Calcium Phosphorus Magnesium AST ALT Total Creatine Kinase CK-MB (CK-2) Troponin T Total Protein Albumin HDL Cholesterol TSH Free T3 Index Arterial Blood Glucose 325 H Arterial Blood Ionized Calcium Urine pH Urine WBC (Auto) Urine Creatinine Acetaminophen 04/16/21 04/16/21 04/16/21 05:02 11:34 16:09 WBC RBC Hgb Hct MCV RDW Plt Count Lymph % (Auto) Seg Neutrophils % Seg Neuts % (Manual) Lymphocytes % (Manual) Monocytes % (Manual) Seg Neutrophils # Seg Neutrophils # Man Lymphocytes # (Manual) Monocytes # (Manual) ABG pH POC ABG pCO2 POC ABG pO2 ABG Hemoglobin ABG Oxyhemoglobin ABG Sodium ABG Potassium ABG Chloride ABG Glucose Carboxyhemoglobin Sodium 131 L Potassium 5.9 H Chloride 88.7 L BUN 34 H Creatinine 2.9 H Glucose 249 H POC Glucose 382 H 300 H Calcium 10.4 H Phosphorus Magnesium AST 65 H ALT Total Creatine Kinase CK-MB (CK-2) Troponin T Total Protein Albumin 3.8 L HDL Cholesterol TSH Free T3 Index Arterial Blood Glucose Arterial Blood Ionized Calcium Urine pH Urine WBC (Auto) Urine Creatinine Acetaminophen 04/16/21 04/16/21 04/16/21 18:15 19:01 19:01 WBC RBC Hgb Hct MCV RDW Plt Count Lymph % (Auto) Seg Neutrophils % Seg Neuts % (Manual) Lymphocytes % (Manual) Monocytes % (Manual) Seg Neutrophils # Seg Neutrophils # Man Lymphocytes # (Manual) Monocytes # (Manual) ABG pH POC ABG pCO2 POC ABG pO2 ABG Hemoglobin ABG Oxyhemoglobin ABG Sodium ABG Potassium ABG Chloride ABG Glucose Carboxyhemoglobin Sodium 125 L Potassium 5.5 H Chloride 84.5 L BUN 37 H Creatinine 3.5 H Glucose 236 H POC Glucose 287 H Calcium Phosphorus Magnesium AST ALT Total Creatine Kinase CK-MB (CK-2) Troponin T Total Protein Albumin HDL Cholesterol TSH Free T3 Index 1.1 L Arterial Blood Glucose Arterial Blood Ionized Calcium Urine pH Urine WBC (Auto) Urine Creatinine Acetaminophen 04/16/21 04/16/21 04/17/21 19:01 23:48 03:09 WBC RBC Hgb Hct MCV RDW Plt Count Lymph % (Auto) Seg Neutrophils % Seg Neuts % (Manual) Lymphocytes % (Manual) Monocytes % (Manual) Seg Neutrophils # Seg Neutrophils # Man Lymphocytes # (Manual) Monocytes # (Manual) ABG pH 7.518 H POC ABG pCO2 POC ABG pO2 ABG Hemoglobin ABG Oxyhemoglobin ABG Sodium 126.4 L ABG Potassium ABG Chloride 89.0 L ABG Glucose 200 H Carboxyhemoglobin Sodium Potassium 5.6 H Chloride BUN Creatinine Glucose POC Glucose 243 H Calcium Phosphorus Magnesium AST ALT Total Creatine Kinase CK-MB (CK-2) Troponin T Total Protein Albumin HDL Cholesterol TSH Free T3 Index Arterial Blood Glucose 200 H Arterial Blood Ionized Calcium 4.4 L Urine pH Urine WBC (Auto) Urine Creatinine Acetaminophen 04/17/21 04/17/21 04/17/21 05:04 06:14 11:55 WBC RBC Hgb Hct MCV RDW Plt Count Lymph % (Auto) Seg Neutrophils % Seg Neuts % (Manual) Lymphocytes % (Manual) Monocytes % (Manual) Seg Neutrophils # Seg Neutrophils # Man Lymphocytes # (Manual) Monocytes # (Manual) ABG pH POC ABG pCO2 POC ABG pO2 ABG Hemoglobin ABG Oxyhemoglobin ABG Sodium ABG Potassium ABG Chloride ABG Glucose Carboxyhemoglobin Sodium 129 L Potassium Chloride 86.1 L BUN 39 H Creatinine 3.5 H Glucose 202 H POC Glucose 208 H 276 H Calcium Phosphorus Magnesium AST ALT Total Creatine Kinase 750 H CK-MB (CK-2) Troponin T 0.119 H* D Total Protein Albumin HDL Cholesterol 61 H TSH Free T3 Index Arterial Blood Glucose Arterial Blood Ionized Calcium Urine pH Urine WBC (Auto) Urine Creatinine Acetaminophen 04/17/21 04/17/21 04/17/21 15:35 15:35 17:07 WBC 17.1 H RBC Hgb Hct MCV RDW Plt Count Lymph % (Auto) Seg Neutrophils % Seg Neuts % (Manual) Lymphocytes % (Manual) Monocytes % (Manual) Seg Neutrophils # Seg Neutrophils # Man Lymphocytes # (Manual) Monocytes # (Manual) ABG pH POC ABG pCO2 POC ABG pO2 ABG Hemoglobin ABG Oxyhemoglobin ABG Sodium ABG Potassium ABG Chloride ABG Glucose Carboxyhemoglobin Sodium Potassium Chloride BUN Creatinine Glucose POC Glucose 148 H Calcium Phosphorus Magnesium AST ALT Total Creatine Kinase 615 H CK-MB (CK-2) 9.1 H Troponin T Total Protein Albumin HDL Cholesterol TSH Free T3 Index Arterial Blood Glucose Arterial Blood Ionized Calcium Urine pH Urine WBC (Auto) Urine Creatinine Acetaminophen 04/18/21 04/18/21 04/18/21 00:01 03:00 05:24 WBC RBC Hgb Hct MCV RDW Plt Count Lymph % (Auto) Seg Neutrophils % Seg Neuts % (Manual) Lymphocytes % (Manual) Monocytes % (Manual) Seg Neutrophils # Seg Neutrophils # Man Lymphocytes # (Manual) Monocytes # (Manual) ABG pH 7.497 H POC ABG pCO2 POC ABG pO2 77.7 L ABG Hemoglobin 10.4 L ABG Oxyhemoglobin ABG Sodium 129.7 L ABG Potassium 2.8 L ABG Chloride 92.0 L ABG Glucose 134 H Carboxyhemoglobin 0.3 L Sodium Potassium Chloride BUN Creatinine Glucose POC Glucose 192 H 162 H Calcium Phosphorus Magnesium AST ALT Total Creatine Kinase CK-MB (CK-2) Troponin T Total Protein Albumin HDL Cholesterol TSH Free T3 Index Arterial Blood Glucose 134 H Arterial Blood Ionized Calcium 4.3 L Urine pH Urine WBC (Auto) Urine Creatinine Acetaminophen 04/18/21 04/18/21 04/18/21 05:34 05:34 05:43 WBC 15.3 H RBC 3.34 L Hgb Hct MCV RDW 15.3 H Plt Count Lymph % (Auto) Seg Neutrophils % Seg Neuts % (Manual) Lymphocytes % (Manual) Monocytes % (Manual) Seg Neutrophils # Seg Neutrophils # Man Lymphocytes # (Manual) Monocytes # (Manual) ABG pH POC ABG pCO2 POC ABG pO2 ABG Hemoglobin ABG Oxyhemoglobin ABG Sodium ABG Potassium ABG Chloride ABG Glucose Carboxyhemoglobin Sodium 134 L Potassium 3.0 L D Chloride 93.5 L BUN 42 H Creatinine 3.1 H Glucose 152 H POC Glucose Calcium Phosphorus Magnesium 1.40 L AST ALT Total Creatine Kinase 427 H CK-MB (CK-2) Troponin T 0.081 H D Total Protein Albumin HDL Cholesterol TSH Free T3 Index Arterial Blood Glucose Arterial Blood Ionized Calcium Urine pH Urine WBC (Auto) Urine Creatinine Acetaminophen 04/18/21 04/18/21 04/18/21 09:11 11:34 17:24 WBC RBC Hgb Hct MCV RDW Plt Count Lymph % (Auto) Seg Neutrophils % Seg Neuts % (Manual) Lymphocytes % (Manual) Monocytes % (Manual) Seg Neutrophils # Seg Neutrophils # Man Lymphocytes # (Manual) Monocytes # (Manual) ABG pH POC ABG pCO2 POC ABG pO2 ABG Hemoglobin ABG Oxyhemoglobin ABG Sodium ABG Potassium ABG Chloride ABG Glucose Carboxyhemoglobin Sodium Potassium Chloride BUN Creatinine Glucose POC Glucose 170 H 151 H Calcium Phosphorus Magnesium AST ALT Total Creatine Kinase CK-MB (CK-2) Troponin T Total Protein Albumin HDL Cholesterol TSH Free T3 Index Arterial Blood Glucose Arterial Blood Ionized Calcium Urine pH Urine WBC (Auto) 34.0 H Urine Creatinine Acetaminophen 04/18/21 04/19/21 04/19/21 23:18 04:09 05:19 WBC RBC Hgb Hct MCV RDW Plt Count Lymph % (Auto) Seg Neutrophils % Seg Neuts % (Manual) Lymphocytes % (Manual) Monocytes % (Manual) Seg Neutrophils # Seg Neutrophils # Man Lymphocytes # (Manual) Monocytes # (Manual) ABG pH 7.476 H POC ABG pCO2 POC ABG pO2 79.4 L ABG Hemoglobin 10.7 L ABG Oxyhemoglobin ABG Sodium 131.2 L ABG Potassium 2.8 L ABG Chloride 94.0 L ABG Glucose 209 H Carboxyhemoglobin 0.3 L Sodium Potassium Chloride BUN Creatinine Glucose POC Glucose 182 H 204 H Calcium Phosphorus Magnesium AST ALT Total Creatine Kinase CK-MB (CK-2) Troponin T Total Protein Albumin HDL Cholesterol TSH Free T3 Index Arterial Blood Glucose 209 H Arterial Blood Ionized Calcium Urine pH Urine WBC (Auto) Urine Creatinine Acetaminophen 04/19/21 04/19/21 04/19/21 07:30 07:30 10:35 WBC 14.8 H RBC 3.20 L Hgb Hct MCV 98 H RDW Plt Count 137 L Lymph % (Auto) Seg Neutrophils % Seg Neuts % (Manual) Lymphocytes % (Manual) Monocytes % (Manual) Seg Neutrophils # Seg Neutrophils # Man Lymphocytes # (Manual) Monocytes # (Manual) ABG pH 7.464 H POC ABG pCO2 POC ABG pO2 81.8 L ABG Hemoglobin 10.8 L ABG Oxyhemoglobin ABG Sodium 129.6 L ABG Potassium ABG Chloride 95.0 L ABG Glucose 238 H Carboxyhemoglobin Sodium 133 L Potassium 2.8 L* Chloride 94.4 L BUN 43 H Creatinine 2.7 H Glucose 255 H POC Glucose Calcium 8.0 L Phosphorus Magnesium AST ALT Total Creatine Kinase CK-MB (CK-2) Troponin T 0.060 H D Total Protein Albumin HDL Cholesterol TSH Free T3 Index Arterial Blood Glucose 238 H Arterial Blood Ionized Calcium Urine pH Urine WBC (Auto) Urine Creatinine Acetaminophen 04/19/21 04/19/21 04/19/21 11:48 20:40 23:04 WBC RBC Hgb Hct MCV RDW Plt Count Lymph % (Auto) Seg Neutrophils % Seg Neuts % (Manual) Lymphocytes % (Manual) Monocytes % (Manual) Seg Neutrophils # Seg Neutrophils # Man Lymphocytes # (Manual) Monocytes # (Manual) ABG pH POC ABG pCO2 POC ABG pO2 ABG Hemoglobin ABG Oxyhemoglobin ABG Sodium ABG Potassium ABG Chloride ABG Glucose Carboxyhemoglobin Sodium Potassium 3.4 L D Chloride BUN Creatinine Glucose POC Glucose 208 H 173 H Calcium Phosphorus Magnesium AST ALT Total Creatine Kinase CK-MB (CK-2) Troponin T Total Protein Albumin HDL Cholesterol TSH Free T3 Index Arterial Blood Glucose Arterial Blood Ionized Calcium Urine pH Urine WBC (Auto) Urine Creatinine Acetaminophen 04/20/21 04/20/21 04/20/21 02:56 03:32 03:32 WBC 13.2 H RBC 3.18 L Hgb Hct MCV RDW Plt Count Lymph % (Auto) Seg Neutrophils % Seg Neuts % (Manual) Lymphocytes % (Manual) Monocytes % (Manual) Seg Neutrophils # Seg Neutrophils # Man Lymphocytes # (Manual) Monocytes # (Manual) ABG pH 7.526 H POC ABG pCO2 POC ABG pO2 ABG Hemoglobin 10.5 L ABG Oxyhemoglobin ABG Sodium 133.5 L ABG Potassium ABG Chloride ABG Glucose 157 H Carboxyhemoglobin 0.3 L Sodium 135 L Potassium Chloride 96.7 L BUN 40 H Creatinine 2.3 H Glucose 142 H POC Glucose Calcium Phosphorus Magnesium AST ALT Total Creatine Kinase CK-MB (CK-2) Troponin T 0.065 H Total Protein Albumin HDL Cholesterol TSH Free T3 Index Arterial Blood Glucose 157 H Arterial Blood Ionized Calcium Urine pH Urine WBC (Auto) Urine Creatinine Acetaminophen 04/20/21 04/20/21 04/20/21 03:46 05:42 11:50 WBC RBC Hgb Hct MCV RDW Plt Count Lymph % (Auto) Seg Neutrophils % Seg Neuts % (Manual) Lymphocytes % (Manual) Monocytes % (Manual) Seg Neutrophils # Seg Neutrophils # Man Lymphocytes # (Manual) Monocytes # (Manual) ABG pH POC ABG pCO2 POC ABG pO2 ABG Hemoglobin ABG Oxyhemoglobin ABG Sodium ABG Potassium ABG Chloride ABG Glucose Carboxyhemoglobin Sodium Potassium Chloride BUN Creatinine Glucose POC Glucose 160 H 194 H Calcium Phosphorus 2.10 L Magnesium AST ALT Total Creatine Kinase CK-MB (CK-2) Troponin T Total Protein Albumin HDL Cholesterol TSH Free T3 Index Arterial Blood Glucose Arterial Blood Ionized Calcium Urine pH Urine WBC (Auto) Urine Creatinine Acetaminophen 04/20/21 04/20/21 04/21/21 17:09 23:18 05:26 WBC RBC Hgb Hct MCV RDW Plt Count Lymph % (Auto) Seg Neutrophils % Seg Neuts % (Manual) Lymphocytes % (Manual) Monocytes % (Manual) Seg Neutrophils # Seg Neutrophils # Man Lymphocytes # (Manual) Monocytes # (Manual) ABG pH POC ABG pCO2 POC ABG pO2 ABG Hemoglobin ABG Oxyhemoglobin ABG Sodium ABG Potassium ABG Chloride ABG Glucose Carboxyhemoglobin Sodium Potassium Chloride BUN Creatinine Glucose POC Glucose 153 H 162 H 164 H Calcium Phosphorus Magnesium AST ALT Total Creatine Kinase CK-MB (CK-2) Troponin T Total Protein Albumin HDL Cholesterol TSH Free T3 Index Arterial Blood Glucose Arterial Blood Ionized Calcium Urine pH Urine WBC (Auto) Urine Creatinine Acetaminophen 04/21/21 04/21/21 04/21/21 05:51 05:51 12:12 WBC RBC 3.20 L Hgb Hct MCV 99 H RDW 15.3 H Plt Count Lymph % (Auto) Seg Neutrophils % Seg Neuts % (Manual) Lymphocytes % (Manual) Monocytes % (Manual) Seg Neutrophils # Seg Neutrophils # Man Lymphocytes # (Manual) Monocytes # (Manual) ABG pH POC ABG pCO2 POC ABG pO2 ABG Hemoglobin ABG Oxyhemoglobin ABG Sodium ABG Potassium ABG Chloride ABG Glucose Carboxyhemoglobin Sodium Potassium Chloride 96.6 L BUN 42 H Creatinine 2.1 H Glucose 171 H POC Glucose 167 H Calcium Phosphorus Magnesium AST ALT Total Creatine Kinase CK-MB (CK-2) Troponin T Total Protein Albumin HDL Cholesterol TSH Free T3 Index Arterial Blood Glucose Arterial Blood Ionized Calcium Urine pH Urine WBC (Auto) Urine Creatinine Acetaminophen 04/21/21 04/21/21 04/22/21 17:13 23:42 05:29 WBC RBC Hgb Hct MCV RDW Plt Count Lymph % (Auto) Seg Neutrophils % Seg Neuts % (Manual) Lymphocytes % (Manual) Monocytes % (Manual) Seg Neutrophils # Seg Neutrophils # Man Lymphocytes # (Manual) Monocytes # (Manual) ABG pH POC ABG pCO2 POC ABG pO2 ABG Hemoglobin ABG Oxyhemoglobin ABG Sodium ABG Potassium ABG Chloride ABG Glucose Carboxyhemoglobin Sodium Potassium Chloride BUN Creatinine Glucose POC Glucose 178 H 253 H 208 H Calcium Phosphorus Magnesium AST ALT Total Creatine Kinase CK-MB (CK-2) Troponin T Total Protein Albumin HDL Cholesterol TSH Free T3 Index Arterial Blood Glucose Arterial Blood Ionized Calcium Urine pH Urine WBC (Auto) Urine Creatinine Acetaminophen 04/22/21 04/22/21 04/22/21 08:00 08:00 12:06 WBC 12.9 H RBC Hgb Hct MCV RDW Plt Count Lymph % (Auto) Seg Neutrophils % Seg Neuts % (Manual) Lymphocytes % (Manual) Monocytes % (Manual) Seg Neutrophils # Seg Neutrophils # Man Lymphocytes # (Manual) Monocytes # (Manual) ABG pH POC ABG pCO2 POC ABG pO2 ABG Hemoglobin ABG Oxyhemoglobin ABG Sodium ABG Potassium ABG Chloride ABG Glucose Carboxyhemoglobin Sodium Potassium Chloride BUN 47 H Creatinine 1.9 H Glucose 252 H POC Glucose 298 H Calcium Phosphorus Magnesium AST ALT Total Creatine Kinase CK-MB (CK-2) Troponin T Total Protein Albumin HDL Cholesterol TSH Free T3 Index Arterial Blood Glucose Arterial Blood Ionized Calcium Urine pH Urine WBC (Auto) Urine Creatinine Acetaminophen 04/22/21 04/22/21 04/23/21 17:34 23:01 05:08 WBC RBC Hgb Hct MCV RDW Plt Count Lymph % (Auto) Seg Neutrophils % Seg Neuts % (Manual) Lymphocytes % (Manual) Monocytes % (Manual) Seg Neutrophils # Seg Neutrophils # Man Lymphocytes # (Manual) Monocytes # (Manual) ABG pH POC ABG pCO2 POC ABG pO2 ABG Hemoglobin ABG Oxyhemoglobin ABG Sodium ABG Potassium ABG Chloride ABG Glucose Carboxyhemoglobin Sodium Potassium Chloride BUN Creatinine Glucose POC Glucose 259 H 280 H 223 H Calcium Phosphorus Magnesium AST ALT Total Creatine Kinase CK-MB (CK-2) Troponin T Total Protein Albumin HDL Cholesterol TSH Free T3 Index Arterial Blood Glucose Arterial Blood Ionized Calcium Urine pH Urine WBC (Auto) Urine Creatinine Acetaminophen 04/23/21 04/23/21 04/23/21 07:02 11:57 17:33 WBC RBC Hgb Hct MCV RDW Plt Count Lymph % (Auto) Seg Neutrophils % Seg Neuts % (Manual) Lymphocytes % (Manual) Monocytes % (Manual) Seg Neutrophils # Seg Neutrophils # Man Lymphocytes # (Manual) Monocytes # (Manual) ABG pH POC ABG pCO2 POC ABG pO2 ABG Hemoglobin ABG Oxyhemoglobin ABG Sodium ABG Potassium ABG Chloride ABG Glucose Carboxyhemoglobin Sodium Potassium Chloride 97.7 L BUN 57 H Creatinine 2.0 H Glucose 253 H POC Glucose 310 H 235 H Calcium Phosphorus Magnesium AST ALT Total Creatine Kinase CK-MB (CK-2) Troponin T Total Protein Albumin HDL Cholesterol TSH Free T3 Index Arterial Blood Glucose Arterial Blood Ionized Calcium Urine pH Urine WBC (Auto) Urine Creatinine Acetaminophen 04/23/21 04/24/21 04/24/21 23:15 05:23 05:46 WBC RBC Hgb Hct MCV RDW Plt Count Lymph % (Auto) Seg Neutrophils % Seg Neuts % (Manual) Lymphocytes % (Manual) Monocytes % (Manual) Seg Neutrophils # Seg Neutrophils # Man Lymphocytes # (Manual) Monocytes # (Manual) ABG pH POC ABG pCO2 POC ABG pO2 ABG Hemoglobin ABG Oxyhemoglobin ABG Sodium ABG Potassium ABG Chloride ABG Glucose Carboxyhemoglobin Sodium Potassium 5.2 H D Chloride BUN 68 H Creatinine 2.3 H Glucose 277 H POC Glucose 197 H 274 H Calcium Phosphorus Magnesium AST ALT Total Creatine Kinase CK-MB (CK-2) Troponin T Total Protein Albumin HDL Cholesterol TSH Free T3 Index Arterial Blood Glucose Arterial Blood Ionized Calcium Urine pH Urine WBC (Auto) Urine Creatinine Acetaminophen 04/24/21 04/24/21 04/24/21 11:33 11:52 17:49 WBC RBC Hgb Hct MCV RDW Plt Count Lymph % (Auto) Seg Neutrophils % Seg Neuts % (Manual) Lymphocytes % (Manual) Monocytes % (Manual) Seg Neutrophils # Seg Neutrophils # Man Lymphocytes # (Manual) Monocytes # (Manual) ABG pH POC ABG pCO2 POC ABG pO2 72.7 L ABG Hemoglobin 11.6 L ABG Oxyhemoglobin 92.9 L ABG Sodium ABG Potassium ABG Chloride ABG Glucose 269 H Carboxyhemoglobin Sodium Potassium Chloride BUN Creatinine Glucose POC Glucose 223 H 252 H Calcium Phosphorus Magnesium AST ALT Total Creatine Kinase CK-MB (CK-2) Troponin T Total Protein Albumin HDL Cholesterol TSH Free T3 Index Arterial Blood Glucose 269 H Arterial Blood Ionized Calcium Urine pH Urine WBC (Auto) Urine Creatinine Acetaminophen 04/24/21 04/24/21 04/25/21 21:00 23:48 03:06 WBC RBC Hgb Hct MCV RDW Plt Count Lymph % (Auto) Seg Neutrophils % Seg Neuts % (Manual) Lymphocytes % (Manual) Monocytes % (Manual) Seg Neutrophils # Seg Neutrophils # Man Lymphocytes # (Manual) Monocytes # (Manual) ABG pH 7.521 H 7.451 H POC ABG pCO2 POC ABG pO2 80.7 L 77.1 L ABG Hemoglobin 10.4 L 11.2 L ABG Oxyhemoglobin ABG Sodium ABG Potassium ABG Chloride ABG Glucose 186 H 165 H Carboxyhemoglobin 0 L Sodium Potassium Chloride BUN Creatinine Glucose POC Glucose 141 H Calcium Phosphorus Magnesium AST ALT Total Creatine Kinase CK-MB (CK-2) Troponin T Total Protein Albumin HDL Cholesterol TSH Free T3 Index Arterial Blood Glucose 186 H 165 H Arterial Blood Ionized Calcium Urine pH Urine WBC (Auto) Urine Creatinine Acetaminophen 04/25/21 04/25/21 04/25/21 03:56 03:56 06:03 WBC 12.3 H RBC 3.40 L Hgb Hct MCV RDW Plt Count Lymph % (Auto) Seg Neutrophils % Seg Neuts % (Manual) Lymphocytes % (Manual) Monocytes % (Manual) Seg Neutrophils # Seg Neutrophils # Man Lymphocytes # (Manual) Monocytes # (Manual) ABG pH POC ABG pCO2 POC ABG pO2 ABG Hemoglobin ABG Oxyhemoglobin ABG Sodium ABG Potassium ABG Chloride ABG Glucose Carboxyhemoglobin Sodium Potassium Chloride BUN 78 H Creatinine 2.5 H Glucose 152 H POC Glucose 171 H Calcium Phosphorus Magnesium AST ALT Total Creatine Kinase CK-MB (CK-2) Troponin T Total Protein Albumin HDL Cholesterol TSH Free T3 Index Arterial Blood Glucose Arterial Blood Ionized Calcium Urine pH Urine WBC (Auto) Urine Creatinine Acetaminophen 04/25/21 04/25/21 04/26/21 11:43 15:37 00:05 WBC RBC Hgb Hct MCV RDW Plt Count Lymph % (Auto) Seg Neutrophils % Seg Neuts % (Manual) Lymphocytes % (Manual) Monocytes % (Manual) Seg Neutrophils # Seg Neutrophils # Man Lymphocytes # (Manual) Monocytes # (Manual) ABG pH POC ABG pCO2 POC ABG pO2 ABG Hemoglobin ABG Oxyhemoglobin ABG Sodium ABG Potassium ABG Chloride ABG Glucose Carboxyhemoglobin Sodium Potassium Chloride BUN Creatinine Glucose POC Glucose 181 H 167 H 144 H Calcium Phosphorus Magnesium AST ALT Total Creatine Kinase CK-MB (CK-2) Troponin T Total Protein Albumin HDL Cholesterol TSH Free T3 Index Arterial Blood Glucose Arterial Blood Ionized Calcium Urine pH Urine WBC (Auto) Urine Creatinine Acetaminophen 04/26/21 04/26/21 04/26/21 04:30 05:44 09:30 WBC RBC Hgb Hct MCV RDW Plt Count Lymph % (Auto) Seg Neutrophils % Seg Neuts % (Manual) Lymphocytes % (Manual) Monocytes % (Manual) Seg Neutrophils # Seg Neutrophils # Man Lymphocytes # (Manual) Monocytes # (Manual) ABG pH 7.529 H POC ABG pCO2 POC ABG pO2 66.1 L ABG Hemoglobin 11.2 L ABG Oxyhemoglobin 92.8 L ABG Sodium ABG Potassium ABG Chloride ABG Glucose 216 H Carboxyhemoglobin 0.3 L Sodium Potassium Chloride BUN 82 H Creatinine 2.7 H Glucose 238 H POC Glucose 202 H Calcium Phosphorus Magnesium AST ALT Total Creatine Kinase CK-MB (CK-2) Troponin T Total Protein Albumin HDL Cholesterol TSH Free T3 Index Arterial Blood Glucose 216 H Arterial Blood Ionized Calcium Urine pH Urine WBC (Auto) Urine Creatinine Acetaminophen 04/26/21 04/26/21 04/26/21 09:30 11:32 17:21 WBC 24.7 H RBC 3.32 L Hgb Hct MCV RDW Plt Count Lymph % (Auto) Seg Neutrophils % Seg Neuts % (Manual) Lymphocytes % (Manual) Monocytes % (Manual) Seg Neutrophils # Seg Neutrophils # Man Lymphocytes # (Manual) Monocytes # (Manual) ABG pH POC ABG pCO2 POC ABG pO2 ABG Hemoglobin ABG Oxyhemoglobin ABG Sodium ABG Potassium ABG Chloride ABG Glucose Carboxyhemoglobin Sodium Potassium Chloride BUN Creatinine Glucose POC Glucose 245 H 264 H Calcium Phosphorus Magnesium AST ALT Total Creatine Kinase CK-MB (CK-2) Troponin T Total Protein Albumin HDL Cholesterol TSH Free T3 Index Arterial Blood Glucose Arterial Blood Ionized Calcium Urine pH Urine WBC (Auto) Urine Creatinine Acetaminophen 04/26/21 04/27/21 04/27/21 23:18 04:23 04:54 WBC RBC Hgb Hct MCV RDW Plt Count Lymph % (Auto) Seg Neutrophils % Seg Neuts % (Manual) Lymphocytes % (Manual) Monocytes % (Manual) Seg Neutrophils # Seg Neutrophils # Man Lymphocytes # (Manual) Monocytes # (Manual) ABG pH 7.549 H POC ABG pCO2 30.0 L POC ABG pO2 64.9 L ABG Hemoglobin 11 L ABG Oxyhemoglobin 93.3 L ABG Sodium ABG Potassium ABG Chloride ABG Glucose 325 H Carboxyhemoglobin 0.3 L Sodium Potassium Chloride BUN Creatinine Glucose POC Glucose 201 H 298 H Calcium Phosphorus Magnesium AST ALT Total Creatine Kinase CK-MB (CK-2) Troponin T Total Protein Albumin HDL Cholesterol TSH Free T3 Index Arterial Blood Glucose 325 H Arterial Blood Ionized Calcium Urine pH Urine WBC (Auto) Urine Creatinine Acetaminophen 04/27/21 04/27/21 04/27/21 07:52 07:52 11:22 WBC 23.0 H RBC 3.32 L Hgb Hct MCV RDW 15.5 H Plt Count Lymph % (Auto) Seg Neutrophils % Seg Neuts % (Manual) Lymphocytes % (Manual) Monocytes % (Manual) Seg Neutrophils # Seg Neutrophils # Man Lymphocytes # (Manual) Monocytes # (Manual) ABG pH POC ABG pCO2 POC ABG pO2 ABG Hemoglobin ABG Oxyhemoglobin ABG Sodium ABG Potassium ABG Chloride ABG Glucose Carboxyhemoglobin Sodium Potassium 3.5 L Chloride BUN 90 H Creatinine 2.8 H Glucose 286 H POC Glucose 251 H Calcium Phosphorus Magnesium AST ALT Total Creatine Kinase CK-MB (CK-2) Troponin T Total Protein Albumin HDL Cholesterol TSH Free T3 Index Arterial Blood Glucose Arterial Blood Ionized Calcium Urine pH Urine WBC (Auto) Urine Creatinine Acetaminophen 04/27/21 04/27/21 04/27/21 17:21 17:45 23:05 WBC RBC Hgb Hct MCV RDW Plt Count Lymph % (Auto) Seg Neutrophils % Seg Neuts % (Manual) Lymphocytes % (Manual) Monocytes % (Manual) Seg Neutrophils # Seg Neutrophils # Man Lymphocytes # (Manual) Monocytes # (Manual) ABG pH POC ABG pCO2 POC ABG pO2 ABG Hemoglobin ABG Oxyhemoglobin ABG Sodium ABG Potassium ABG Chloride ABG Glucose Carboxyhemoglobin Sodium Potassium Chloride BUN Creatinine Glucose POC Glucose 180 H 178 H 189 H Calcium Phosphorus Magnesium AST ALT Total Creatine Kinase CK-MB (CK-2) Troponin T Total Protein Albumin HDL Cholesterol TSH Free T3 Index Arterial Blood Glucose Arterial Blood Ionized Calcium Urine pH Urine WBC (Auto) Urine Creatinine Acetaminophen 04/28/21 04/28/21 04/28/21 03:14 04:13 04:13 WBC 17.6 H RBC 3.03 L Hgb 9.7 L Hct 29.5 L MCV RDW Plt Count Lymph % (Auto) Seg Neutrophils % Seg Neuts % (Manual) Lymphocytes % (Manual) Monocytes % (Manual) Seg Neutrophils # Seg Neutrophils # Man Lymphocytes # (Manual) Monocytes # (Manual) ABG pH 7.507 H POC ABG pCO2 POC ABG pO2 62.0 L ABG Hemoglobin 10.2 L ABG Oxyhemoglobin 91.9 L ABG Sodium ABG Potassium ABG Chloride ABG Glucose 337 H Carboxyhemoglobin 0.2 L Sodium Potassium Chloride BUN 101 H Creatinine 3.1 H Glucose 304 H POC Glucose Calcium Phosphorus Magnesium AST 61 H ALT 64 H Total Creatine Kinase CK-MB (CK-2) Troponin T Total Protein 6.2 L Albumin 2.6 L HDL Cholesterol TSH Free T3 Index Arterial Blood Glucose 337 H Arterial Blood Ionized Calcium Urine pH Urine WBC (Auto) Urine Creatinine Acetaminophen 04/28/21 04/28/21 04/28/21 05:01 11:28 18:23 WBC RBC Hgb Hct MCV RDW Plt Count Lymph % (Auto) Seg Neutrophils % Seg Neuts % (Manual) Lymphocytes % (Manual) Monocytes % (Manual) Seg Neutrophils # Seg Neutrophils # Man Lymphocytes # (Manual) Monocytes # (Manual) ABG pH POC ABG pCO2 POC ABG pO2 ABG Hemoglobin ABG Oxyhemoglobin ABG Sodium ABG Potassium ABG Chloride ABG Glucose Carboxyhemoglobin Sodium Potassium Chloride BUN Creatinine Glucose POC Glucose 282 H 263 H 200 H Calcium Phosphorus Magnesium AST ALT Total Creatine Kinase CK-MB (CK-2) Troponin T Total Protein Albumin HDL Cholesterol TSH Free T3 Index Arterial Blood Glucose Arterial Blood Ionized Calcium Urine pH Urine WBC (Auto) Urine Creatinine Acetaminophen 04/28/21 04/29/21 04/29/21 23:49 03:24 04:22 WBC RBC Hgb Hct MCV RDW Plt Count Lymph % (Auto) Seg Neutrophils % Seg Neuts % (Manual) Lymphocytes % (Manual) Monocytes % (Manual) Seg Neutrophils # Seg Neutrophils # Man Lymphocytes # (Manual) Monocytes # (Manual) ABG pH 7.546 H POC ABG pCO2 POC ABG pO2 52.4 L ABG Hemoglobin 10.5 L ABG Oxyhemoglobin 88.3 L ABG Sodium ABG Potassium ABG Chloride ABG Glucose 217 H Carboxyhemoglobin 0.4 L Sodium 148 H Potassium Chloride BUN 110 H Creatinine 3.1 H Glucose 208 H POC Glucose 238 H Calcium Phosphorus Magnesium AST ALT Total Creatine Kinase CK-MB (CK-2) Troponin T Total Protein Albumin HDL Cholesterol TSH Free T3 Index Arterial Blood Glucose 217 H Arterial Blood Ionized Calcium Urine pH Urine WBC (Auto) Urine Creatinine Acetaminophen 04/29/21 04/29/21 04/29/21 04:22 05:08 11:26 WBC 15.2 H RBC 3.30 L Hgb 9.8 L Hct MCV RDW Plt Count Lymph % (Auto) Seg Neutrophils % Seg Neuts % (Manual) Lymphocytes % (Manual) Monocytes % (Manual) Seg Neutrophils # Seg Neutrophils # Man Lymphocytes # (Manual) Monocytes # (Manual) ABG pH POC ABG pCO2 POC ABG pO2 ABG Hemoglobin ABG Oxyhemoglobin ABG Sodium ABG Potassium ABG Chloride ABG Glucose Carboxyhemoglobin Sodium Potassium Chloride BUN Creatinine Glucose POC Glucose 181 H 218 H Calcium Phosphorus Magnesium AST ALT Total Creatine Kinase CK-MB (CK-2) Troponin T Total Protein Albumin HDL Cholesterol TSH Free T3 Index Arterial Blood Glucose Arterial Blood Ionized Calcium Urine pH Urine WBC (Auto) Urine Creatinine Acetaminophen 04/29/21 04/29/21 04/30/21 17:06 23:06 03:58 WBC RBC Hgb Hct MCV RDW Plt Count Lymph % (Auto) Seg Neutrophils % Seg Neuts % (Manual) Lymphocytes % (Manual) Monocytes % (Manual) Seg Neutrophils # Seg Neutrophils # Man Lymphocytes # (Manual) Monocytes # (Manual) ABG pH 7.547 H POC ABG pCO2 31.3 L POC ABG pO2 58.4 L ABG Hemoglobin 9.6 L ABG Oxyhemoglobin 91.1 L ABG Sodium ABG Potassium ABG Chloride 108.0 H ABG Glucose 248 H Carboxyhemoglobin 0.2 L Sodium Potassium Chloride BUN Creatinine Glucose POC Glucose 223 H 252 H Calcium Phosphorus Magnesium AST ALT Total Creatine Kinase CK-MB (CK-2) Troponin T Total Protein Albumin HDL Cholesterol TSH Free T3 Index Arterial Blood Glucose 248 H Arterial Blood Ionized Calcium Urine pH Urine WBC (Auto) Urine Creatinine Acetaminophen 04/30/21 04/30/21 04/30/21 05:23 05:54 11:47 WBC RBC Hgb Hct MCV RDW Plt Count Lymph % (Auto) Seg Neutrophils % Seg Neuts % (Manual) Lymphocytes % (Manual) Monocytes % (Manual) Seg Neutrophils # Seg Neutrophils # Man Lymphocytes # (Manual) Monocytes # (Manual) ABG pH POC ABG pCO2 POC ABG pO2 ABG Hemoglobin ABG Oxyhemoglobin ABG Sodium ABG Potassium ABG Chloride ABG Glucose Carboxyhemoglobin Sodium Potassium Chloride BUN 118 H Creatinine 3.3 H Glucose 263 H POC Glucose 244 H 237 H Calcium Phosphorus Magnesium AST ALT Total Creatine Kinase CK-MB (CK-2) Troponin T Total Protein Albumin HDL Cholesterol TSH Free T3 Index Arterial Blood Glucose Arterial Blood Ionized Calcium Urine pH Urine WBC (Auto) Urine Creatinine Acetaminophen 04/30/21 04/30/21 04/30/21 17:26 17:45 23:51 WBC RBC Hgb Hct MCV RDW Plt Count Lymph % (Auto) Seg Neutrophils % Seg Neuts % (Manual) Lymphocytes % (Manual) Monocytes % (Manual) Seg Neutrophils # Seg Neutrophils # Man Lymphocytes # (Manual) Monocytes # (Manual) ABG pH POC ABG pCO2 POC ABG pO2 ABG Hemoglobin ABG Oxyhemoglobin ABG Sodium ABG Potassium ABG Chloride ABG Glucose Carboxyhemoglobin Sodium Potassium Chloride BUN Creatinine Glucose POC Glucose 193 H 197 H Calcium Phosphorus Magnesium AST ALT Total Creatine Kinase CK-MB (CK-2) Troponin T Total Protein Albumin HDL Cholesterol TSH Free T3 Index Arterial Blood Glucose Arterial Blood Ionized Calcium Urine pH Urine WBC (Auto) 48.0 H Urine Creatinine Acetaminophen 05/01/21 05/01/21 05/01/21 04:02 04:57 07:11 WBC 12.3 H RBC 2.83 L Hgb 8.8 L Hct 27.3 L MCV RDW Plt Count Lymph % (Auto) Seg Neutrophils % Seg Neuts % (Manual) 80.0 H Lymphocytes % (Manual) 5.0 L Monocytes % (Manual) Seg Neutrophils # Seg Neutrophils # Man 9.8 H Lymphocytes # (Manual) 0.6 L Monocytes # (Manual) ABG pH 7.466 H POC ABG pCO2 POC ABG pO2 61.4 L ABG Hemoglobin 9.0 L ABG Oxyhemoglobin 91.1 L ABG Sodium ABG Potassium ABG Chloride 110.0 H ABG Glucose 245 H Carboxyhemoglobin Sodium Potassium Chloride BUN Creatinine Glucose POC Glucose 193 H Calcium Phosphorus Magnesium AST ALT Total Creatine Kinase CK-MB (CK-2) Troponin T Total Protein Albumin HDL Cholesterol TSH Free T3 Index Arterial Blood Glucose 245 H Arterial Blood Ionized Calcium Urine pH Urine WBC (Auto) Urine Creatinine Acetaminophen 05/01/21 05/01/21 05/01/21 07:11 07:45 11:30 WBC RBC Hgb Hct MCV RDW Plt Count Lymph % (Auto) Seg Neutrophils % Seg Neuts % (Manual) Lymphocytes % (Manual) Monocytes % (Manual) Seg Neutrophils # Seg Neutrophils # Man Lymphocytes # (Manual) Monocytes # (Manual) ABG pH POC ABG pCO2 POC ABG pO2 ABG Hemoglobin ABG Oxyhemoglobin ABG Sodium ABG Potassium ABG Chloride ABG Glucose Carboxyhemoglobin Sodium 146 H Potassium Chloride 108.4 H BUN 122 H Creatinine 3.4 H Glucose 235 H POC Glucose 212 H 247 H Calcium Phosphorus Magnesium AST ALT Total Creatine Kinase CK-MB (CK-2) Troponin T Total Protein Albumin HDL Cholesterol TSH Free T3 Index Arterial Blood Glucose Arterial Blood Ionized Calcium Urine pH Urine WBC (Auto) Urine Creatinine Acetaminophen 05/01/21 05/01/21 05/01/21 11:31 17:42 23:49 WBC RBC Hgb Hct MCV RDW Plt Count Lymph % (Auto) Seg Neutrophils % Seg Neuts % (Manual) Lymphocytes % (Manual) Monocytes % (Manual) Seg Neutrophils # Seg Neutrophils # Man Lymphocytes # (Manual) Monocytes # (Manual) ABG pH POC ABG pCO2 POC ABG pO2 ABG Hemoglobin ABG Oxyhemoglobin ABG Sodium ABG Potassium ABG Chloride ABG Glucose Carboxyhemoglobin Sodium Potassium Chloride BUN Creatinine Glucose POC Glucose 258 H 171 H 167 H Calcium Phosphorus Magnesium AST ALT Total Creatine Kinase CK-MB (CK-2) Troponin T Total Protein Albumin HDL Cholesterol TSH Free T3 Index Arterial Blood Glucose Arterial Blood Ionized Calcium Urine pH Urine WBC (Auto) Urine Creatinine Acetaminophen 05/02/21 05/02/21 05/02/21 05:12 08:34 11:53 WBC RBC Hgb Hct MCV RDW Plt Count Lymph % (Auto) Seg Neutrophils % Seg Neuts % (Manual) Lymphocytes % (Manual) Monocytes % (Manual) Seg Neutrophils # Seg Neutrophils # Man Lymphocytes # (Manual) Monocytes # (Manual) ABG pH POC ABG pCO2 POC ABG pO2 ABG Hemoglobin ABG Oxyhemoglobin ABG Sodium ABG Potassium ABG Chloride ABG Glucose Carboxyhemoglobin Sodium 148 H Potassium Chloride 110.4 H BUN 124 H Creatinine 3.4 H Glucose 208 H POC Glucose 163 H 185 H Calcium 8.3 L Phosphorus Magnesium AST ALT Total Creatine Kinase CK-MB (CK-2) Troponin T Total Protein Albumin HDL Cholesterol TSH Free T3 Index Arterial Blood Glucose Arterial Blood Ionized Calcium Urine pH Urine WBC (Auto) Urine Creatinine Acetaminophen 05/02/21 05/02/21 05/03/21 17:28 23:32 03:57 WBC RBC Hgb Hct MCV RDW Plt Count Lymph % (Auto) Seg Neutrophils % Seg Neuts % (Manual) Lymphocytes % (Manual) Monocytes % (Manual) Seg Neutrophils # Seg Neutrophils # Man Lymphocytes # (Manual) Monocytes # (Manual) ABG pH 7.531 H POC ABG pCO2 31.0 L POC ABG pO2 64.3 L ABG Hemoglobin 9.0 L ABG Oxyhemoglobin 92.6 L ABG Sodium 145.7 H ABG Potassium ABG Chloride 112.0 H ABG Glucose 202 H Carboxyhemoglobin Sodium Potassium Chloride BUN Creatinine Glucose POC Glucose 147 H 202 H Calcium Phosphorus Magnesium AST ALT Total Creatine Kinase CK-MB (CK-2) Troponin T Total Protein Albumin HDL Cholesterol TSH Free T3 Index Arterial Blood Glucose 202 H Arterial Blood Ionized Calcium Urine pH Urine WBC (Auto) Urine Creatinine Acetaminophen 05/03/21 05/03/21 05/03/21 05:14 05:44 11:10 WBC RBC Hgb Hct MCV RDW Plt Count Lymph % (Auto) Seg Neutrophils % Seg Neuts % (Manual) Lymphocytes % (Manual) Monocytes % (Manual) Seg Neutrophils # Seg Neutrophils # Man Lymphocytes # (Manual) Monocytes # (Manual) ABG pH POC ABG pCO2 POC ABG pO2 ABG Hemoglobin ABG Oxyhemoglobin ABG Sodium ABG Potassium ABG Chloride ABG Glucose Carboxyhemoglobin Sodium 147 H Potassium Chloride 109.7 H BUN 121 H Creatinine 3.1 H Glucose 190 H POC Glucose 175 H 202 H Calcium Phosphorus Magnesium AST ALT Total Creatine Kinase CK-MB (CK-2) Troponin T Total Protein Albumin HDL Cholesterol TSH Free T3 Index Arterial Blood Glucose Arterial Blood Ionized Calcium Urine pH Urine WBC (Auto) Urine Creatinine Acetaminophen 05/03/21 05/04/21 05/04/21 23:58 04:57 04:57 WBC RBC 2.61 L Hgb 8.2 L Hct 25.4 L MCV 98 H RDW 15.3 H Plt Count Lymph % (Auto) Seg Neutrophils % Seg Neuts % (Manual) Lymphocytes % (Manual) Monocytes % (Manual) Seg Neutrophils # Seg Neutrophils # Man Lymphocytes # (Manual) Monocytes # (Manual) ABG pH POC ABG pCO2 POC ABG pO2 ABG Hemoglobin ABG Oxyhemoglobin ABG Sodium ABG Potassium ABG Chloride ABG Glucose Carboxyhemoglobin Sodium 147 H Potassium Chloride 111.0 H BUN 104 H Creatinine 2.8 H Glucose 179 H POC Glucose 131 H Calcium Phosphorus Magnesium AST ALT Total Creatine Kinase CK-MB (CK-2) Troponin T Total Protein Albumin HDL Cholesterol TSH Free T3 Index Arterial Blood Glucose Arterial Blood Ionized Calcium Urine pH Urine WBC (Auto) Urine Creatinine Acetaminophen 05/04/21 05/04/21 05/04/21 05:19 11:28 17:02 WBC RBC Hgb Hct MCV RDW Plt Count Lymph % (Auto) Seg Neutrophils % Seg Neuts % (Manual) Lymphocytes % (Manual) Monocytes % (Manual) Seg Neutrophils # Seg Neutrophils # Man Lymphocytes # (Manual) Monocytes # (Manual) ABG pH POC ABG pCO2 POC ABG pO2 ABG Hemoglobin ABG Oxyhemoglobin ABG Sodium ABG Potassium ABG Chloride ABG Glucose Carboxyhemoglobin Sodium Potassium Chloride BUN Creatinine Glucose POC Glucose 168 H 206 H 213 H Calcium Phosphorus Magnesium AST ALT Total Creatine Kinase CK-MB (CK-2) Troponin T Total Protein Albumin HDL Cholesterol TSH Free T3 Index Arterial Blood Glucose Arterial Blood Ionized Calcium Urine pH Urine WBC (Auto) Urine Creatinine Acetaminophen 05/04/21 05/05/21 05/05/21 23:13 04:55 05:15 WBC RBC Hgb Hct MCV RDW Plt Count Lymph % (Auto) Seg Neutrophils % Seg Neuts % (Manual) Lymphocytes % (Manual) Monocytes % (Manual) Seg Neutrophils # Seg Neutrophils # Man Lymphocytes # (Manual) Monocytes # (Manual) ABG pH POC ABG pCO2 POC ABG pO2 ABG Hemoglobin ABG Oxyhemoglobin ABG Sodium ABG Potassium ABG Chloride ABG Glucose Carboxyhemoglobin Sodium Potassium Chloride BUN 91 H Creatinine 2.4 H Glucose 255 H POC Glucose 232 H 235 H Calcium Phosphorus Magnesium AST ALT Total Creatine Kinase CK-MB (CK-2) Troponin T Total Protein Albumin HDL Cholesterol TSH Free T3 Index Arterial Blood Glucose Arterial Blood Ionized Calcium Urine pH Urine WBC (Auto) Urine Creatinine Acetaminophen 05/05/21 05/05/21 05/05/21 11:41 17:46 23:40 WBC RBC Hgb Hct MCV RDW Plt Count Lymph % (Auto) Seg Neutrophils % Seg Neuts % (Manual) Lymphocytes % (Manual) Monocytes % (Manual) Seg Neutrophils # Seg Neutrophils # Man Lymphocytes # (Manual) Monocytes # (Manual) ABG pH POC ABG pCO2 POC ABG pO2 ABG Hemoglobin ABG Oxyhemoglobin ABG Sodium ABG Potassium ABG Chloride ABG Glucose Carboxyhemoglobin Sodium Potassium Chloride BUN Creatinine Glucose POC Glucose 199 H 231 H 224 H Calcium Phosphorus Magnesium AST ALT Total Creatine Kinase CK-MB (CK-2) Troponin T Total Protein Albumin HDL Cholesterol TSH Free T3 Index Arterial Blood Glucose Arterial Blood Ionized Calcium Urine pH Urine WBC (Auto) Urine Creatinine Acetaminophen 05/06/21 05/06/21 05/06/21 04:00 05:37 07:12 WBC RBC Hgb Hct MCV RDW Plt Count Lymph % (Auto) Seg Neutrophils % Seg Neuts % (Manual) Lymphocytes % (Manual) Monocytes % (Manual) Seg Neutrophils # Seg Neutrophils # Man Lymphocytes # (Manual) Monocytes # (Manual) ABG pH 7.464 H POC ABG pCO2 POC ABG pO2 74.2 L ABG Hemoglobin 10.5 L ABG Oxyhemoglobin ABG Sodium ABG Potassium ABG Chloride 110.0 H ABG Glucose 214 H Carboxyhemoglobin 0.4 L Sodium 146 H Potassium Chloride 110.4 H BUN 82 H Creatinine 2.3 H Glucose 154 H POC Glucose 165 H Calcium Phosphorus Magnesium AST ALT Total Creatine Kinase CK-MB (CK-2) Troponin T Total Protein Albumin HDL Cholesterol TSH Free T3 Index Arterial Blood Glucose 214 H Arterial Blood Ionized Calcium Urine pH Urine WBC (Auto) Urine Creatinine Acetaminophen 05/06/21 05/06/21 05/07/21 17:11 23:40 05:26 WBC RBC Hgb Hct MCV RDW Plt Count Lymph % (Auto) Seg Neutrophils % Seg Neuts % (Manual) Lymphocytes % (Manual) Monocytes % (Manual) Seg Neutrophils # Seg Neutrophils # Man Lymphocytes # (Manual) Monocytes # (Manual) ABG pH POC ABG pCO2 POC ABG pO2 ABG Hemoglobin ABG Oxyhemoglobin ABG Sodium ABG Potassium ABG Chloride ABG Glucose Carboxyhemoglobin Sodium Potassium Chloride BUN Creatinine Glucose POC Glucose 126 H 165 H 156 H Calcium Phosphorus Magnesium AST ALT Total Creatine Kinase CK-MB (CK-2) Troponin T Total Protein Albumin HDL Cholesterol TSH Free T3 Index Arterial Blood Glucose Arterial Blood Ionized Calcium Urine pH Urine WBC (Auto) Urine Creatinine Acetaminophen 05/07/21 05/07/21 05/07/21 08:20 08:20 11:35 WBC RBC 2.58 L Hgb 7.9 L Hct 24.9 L MCV RDW Plt Count Lymph % (Auto) Seg Neutrophils % Seg Neuts % (Manual) Lymphocytes % (Manual) Monocytes % (Manual) Seg Neutrophils # Seg Neutrophils # Man Lymphocytes # (Manual) Monocytes # (Manual) ABG pH POC ABG pCO2 POC ABG pO2 ABG Hemoglobin ABG Oxyhemoglobin ABG Sodium ABG Potassium ABG Chloride ABG Glucose Carboxyhemoglobin Sodium Potassium Chloride 108.4 H BUN 81 H Creatinine 2.4 H Glucose 133 H POC Glucose 112 H Calcium Phosphorus Magnesium AST ALT Total Creatine Kinase CK-MB (CK-2) Troponin T Total Protein Albumin HDL Cholesterol TSH Free T3 Index Arterial Blood Glucose Arterial Blood Ionized Calcium Urine pH Urine WBC (Auto) Urine Creatinine Acetaminophen 05/07/21 05/07/21 05/08/21 17:51 23:27 03:05 WBC RBC Hgb Hct MCV RDW Plt Count Lymph % (Auto) Seg Neutrophils % Seg Neuts % (Manual) Lymphocytes % (Manual) Monocytes % (Manual) Seg Neutrophils # Seg Neutrophils # Man Lymphocytes # (Manual) Monocytes # (Manual) ABG pH 7.454 H POC ABG pCO2 POC ABG pO2 82.1 L ABG Hemoglobin 8.1 L ABG Oxyhemoglobin ABG Sodium ABG Potassium 4.8 H ABG Chloride 111.0 H ABG Glucose 194 H Carboxyhemoglobin Sodium Potassium Chloride BUN Creatinine Glucose POC Glucose 136 H 133 H Calcium Phosphorus Magnesium AST ALT Total Creatine Kinase CK-MB (CK-2) Troponin T Total Protein Albumin HDL Cholesterol TSH Free T3 Index Arterial Blood Glucose 194 H Arterial Blood Ionized Calcium Urine pH Urine WBC (Auto) Urine Creatinine Acetaminophen 05/08/21 05/08/21 05/08/21 05:52 07:07 07:07 WBC 12.0 H RBC 2.94 L Hgb 9.0 L Hct 28.5 L MCV RDW Plt Count Lymph % (Auto) Seg Neutrophils % Seg Neuts % (Manual) Lymphocytes % (Manual) Monocytes % (Manual) Seg Neutrophils # Seg Neutrophils # Man Lymphocytes # (Manual) Monocytes # (Manual) ABG pH POC ABG pCO2 POC ABG pO2 ABG Hemoglobin ABG Oxyhemoglobin ABG Sodium ABG Potassium ABG Chloride ABG Glucose Carboxyhemoglobin Sodium Potassium Chloride BUN 73 H Creatinine 2.2 H Glucose 211 H POC Glucose 194 H Calcium Phosphorus Magnesium AST ALT Total Creatine Kinase CK-MB (CK-2) Troponin T Total Protein Albumin HDL Cholesterol TSH Free T3 Index Arterial Blood Glucose Arterial Blood Ionized Calcium Urine pH Urine WBC (Auto) Urine Creatinine Acetaminophen 05/08/21 05/08/21 05/08/21 11:19 17:20 23:22 WBC RBC Hgb Hct MCV RDW Plt Count Lymph % (Auto) Seg Neutrophils % Seg Neuts % (Manual) Lymphocytes % (Manual) Monocytes % (Manual) Seg Neutrophils # Seg Neutrophils # Man Lymphocytes # (Manual) Monocytes # (Manual) ABG pH POC ABG pCO2 POC ABG pO2 ABG Hemoglobin ABG Oxyhemoglobin ABG Sodium ABG Potassium ABG Chloride ABG Glucose Carboxyhemoglobin Sodium Potassium Chloride BUN Creatinine Glucose POC Glucose 231 H 251 H 295 H Calcium Phosphorus Magnesium AST ALT Total Creatine Kinase CK-MB (CK-2) Troponin T Total Protein Albumin HDL Cholesterol TSH Free T3 Index Arterial Blood Glucose Arterial Blood Ionized Calcium Urine pH Urine WBC (Auto) Urine Creatinine Acetaminophen 05/09/21 05/09/21 05/09/21 05:39 07:36 11:39 WBC RBC Hgb Hct MCV RDW Plt Count Lymph % (Auto) Seg Neutrophils % Seg Neuts % (Manual) Lymphocytes % (Manual) Monocytes % (Manual) Seg Neutrophils # Seg Neutrophils # Man Lymphocytes # (Manual) Monocytes # (Manual) ABG pH POC ABG pCO2 POC ABG pO2 ABG Hemoglobin ABG Oxyhemoglobin ABG Sodium ABG Potassium ABG Chloride ABG Glucose Carboxyhemoglobin Sodium Potassium Chloride BUN 64 H Creatinine 2.2 H Glucose 308 H POC Glucose 240 H 330 H Calcium Phosphorus Magnesium AST ALT Total Creatine Kinase CK-MB (CK-2) Troponin T Total Protein Albumin HDL Cholesterol TSH Free T3 Index Arterial Blood Glucose Arterial Blood Ionized Calcium Urine pH Urine WBC (Auto) Urine Creatinine Acetaminophen 05/09/21 05/09/21 05/10/21 17:37 23:15 05:15 WBC RBC Hgb Hct MCV RDW Plt Count Lymph % (Auto) Seg Neutrophils % Seg Neuts % (Manual) Lymphocytes % (Manual) Monocytes % (Manual) Seg Neutrophils # Seg Neutrophils # Man Lymphocytes # (Manual) Monocytes # (Manual) ABG pH POC ABG pCO2 POC ABG pO2 ABG Hemoglobin ABG Oxyhemoglobin ABG Sodium ABG Potassium ABG Chloride ABG Glucose Carboxyhemoglobin Sodium Potassium Chloride BUN Creatinine Glucose POC Glucose 174 H 152 H 146 H Calcium Phosphorus Magnesium AST ALT Total Creatine Kinase CK-MB (CK-2) Troponin T Total Protein Albumin HDL Cholesterol TSH Free T3 Index Arterial Blood Glucose Arterial Blood Ionized Calcium Urine pH Urine WBC (Auto) Urine Creatinine Acetaminophen 05/10/21 05/10/21 05:36 11:29 WBC RBC Hgb Hct MCV RDW Plt Count Lymph % (Auto) Seg Neutrophils % Seg Neuts % (Manual) Lymphocytes % (Manual) Monocytes % (Manual) Seg Neutrophils # Seg Neutrophils # Man Lymphocytes # (Manual) Monocytes # (Manual) ABG pH POC ABG pCO2 POC ABG pO2 ABG Hemoglobin ABG Oxyhemoglobin ABG Sodium ABG Potassium ABG Chloride ABG Glucose Carboxyhemoglobin Sodium Potassium Chloride 110.7 H BUN 54 H Creatinine 2.2 H Glucose 164 H POC Glucose 202 H Calcium Phosphorus Magnesium AST ALT Total Creatine Kinase CK-MB (CK-2) Troponin T Total Protein Albumin HDL Cholesterol TSH Free T3 Index Arterial Blood Glucose Arterial Blood Ionized Calcium Urine pH Urine WBC (Auto) Urine Creatinine Acetaminophen Chest x-ray: pending Allied health notes reviewed: nursing
--- NOTE | 2021-05-10 16:51 | Progress Note ---
Assessment and Plan This is a 80-year-old female with HTN, DM, HI, breast CA s/p double mastectomy, TIA who presented with hypoglycemia, AMS who was admitted with SIRS, symptomatic bradycardia, acute metabolic encephalopathy, acute hypoxic respiratory failure, elevated TSH, hyperglycemia, hyponatremia, hypokalemia, ROJELIO and rhabdomyolysis Acute metabolic encephalopathy-persist Acute hypoxic respiratory failure (extubated 04/20)- Re-intubated secondary to S tridor and paradoxical breathing - s/p trach and PEG First-degree heart block Resolved ileus versus mechanical obstruction Acute kidney injury with vasomotor nephropathy UTI, Pseudomonas/ Earline Elevated TSH Mild rhabdomyolysis Hypertension Diabetes mellitus with hyperglycemia on admission CAD Hypothyroidism Chronic illness debilitymyopathy Obesity -CCM, nephrology, neurology, cardiology consulted, patient recommendations -S/p D10 and D5W gtt, on TF -S/p IV calcium gluconate, regular insulin, D50 -S/p transcutaneous pacing, intermittent demand pacer in place -Renal ultrasound findings consistent with acute on chronic kidney disease, mildly complex right renal cyst -Blood pressure monitoring per protocol -Accu-Cheks every 6, SSI, long acting insulin -IV hydralazine as needed -04/25 EEG is mildly abnormal with mild slowing noted throughout the recording, suggestive of mild cortical dysfunction and/or drug effect -04/20 EEG shows mildly abnormal record due to diffuse background slowing noted throughout the recording, intermittent motion artifact, patient intubated and sedated at time of study, no sign of seizures as well epilepticus noted, possible toxic metabolic encephalopathy, drug effect, possible postictal state cannot be totally excluded. -Avoid ACEi/ARB in setting of ROJELIO -Avoid AV arron blocking agents -Avoid nephrotoxic agents and renally dose medications -BB, add home antihtn regimen as needed -TSH 14.1, T4 4.1, T3 1.1-started on levothyroxine -As needed racemic epinephrine -S/p steroids -s/p Antibiotic therapy -Trend CBC, BMP DVT/GI prophylaxis: Heparin subcu, PPI, SCDs to bilateral lower extremities while in bed Disposition: ICU The high probability of a clinically significant, sudden or life threatening deterioration of the [PULMONARY, CARDIAC, RENAL] system(s) required my full and direct attention, intervention and personal management. The aggregate critical care time was [35] minutes. This time is in addition to time spent performing reported procedures but includes the following: [X] Data Review and interpretation [X] Patient assessment and monitoring of vital signs [X] Documentation [X] Medication orders and management Brief history This is a 80-year-old female with hypertension, diabetes mellitus, HI, breast cancer s/p double mastectomy, and a TIA who presented with hypoglycemia and altered mental status on 04/15 via EMS. Per EMS patient was unresponsive on their arrival and her blood glucose was 38 and she received 1 amp of dextrose patient continued to be unresponsive and only moaned with her eyes deviating to the left. Work-up in the emergency department revealed SIRS, symptomatic bradycardia, acute metabolic encephalopathy, acute hypoxic respiratory failure, elevated TSH, hyperglycemia, hyponatremia, hyperkalemia, acute kidney injury with ATN, and rhabdomyolysis Daily clinical course; 04/16: Neurology consulted, COVID-19 PCR negative, D10 drip decreased and even tually discontinued by [facility] and started on D5W for 1 L. Hydralazine as needed. Patient had hyper kalemia today and was treated with D50, insulin and Kayexalate. This time examination patient is on assist control tidal volume 450, rate of 16, PEEP of 6 and 25% FiO2. 04/17: Patient started on low-dose beta-angel per cardiology, CPAP trial again per [facility], BUN/creatinine holding steady and hypochloremia/hyponatremia slightly improved and hypokalemia has resolved. This morning a KUB was obtained which was concerning for ileus versus mechanical obstruction and surgery was consulted. Patient was made n.p.o. and NG tube placed to wall suction. Patient was given suppository. Per RN patient did not have a BM even though she was given Kayexalate yesterday. Will obtain a KUB in the a.m. Neurology was consulted yesterday and will await further recommendations. Nephew updated at bedside today, Carlos Romero. 04/18: Neurology has ordered EEG/MRI B, [facility] continues to wean MV. Persistent low grade temperature so we will obtain BCx2/UA. Patient has improving leukocytosis, hyponatremia, renal function studies and hypochloremia. She has hypokalemia today which is being repleted. Surgery has signed off today and has okayed resumption of TF. [facility] will trial CPAP for longer today and plans to attempt extubation in AM. Family has requested transfer to [place] and Dr. Gordon will attempt to contact transfer center. I updated her nephew, Carlos Romero over the phone today abouyt current events and update on transfer ([place] will conduct a utilization review) 04/19: This morning patient is on CPAP trial at the time of examination, noted to be hypertensive and metoprolol increased to home dose, started on synthroid by CCM, lantus started re hyperglycemia, MRI completed with no acute findings. Severe hypokalemia (repleted and Mg pending). CCM will contact CPAP trial again today with possible trial extubation tomorrow. 04/20: Patient's leukocytosis and kidney function tests continue to improve. Patient is hypertensive overnight we will restart home hydralazine. [facility] plans to extubate patient today. Family is attempting to transfer to another facility. EEG pending, RT will atmept to contact technician automatic. Urine culture grew gram negative rods. Increase in lantus 04/21: Increase in Lantus, repleted phos. Patient has started this afternoon and was given racemic epinephrine and started on steroids. Patient will have BiPAP as needed. We will recheck BMP in the a.m. renal function studies continues to decrease. Patient has been hypertensive on evaluation regimen has been changed. 04/22: Lantus increased for hyperglycemia and add amlodipine for better BP control. Patient is on steroids. OT suctioned by RN with catheter in oral care kit and received copious amounts of secretions. Cr continues to decrease. Culture grew Pseudomonas and was changed in accordance to sensitivity. Kerr removed today after clearance from nephrology. 04/23: MRI of the brain was done and unremarkable. Will obtain reconsult to nephrology for further assistance as patient remains in profound encephalopathy despite improvement of blood sugar. Will repeat chest x-ray as patient does have significant congestion physical exam. Tube feeds still ongoing. Continue aspiration precautions. Continue antibiotics when completed for Pseudomonas management 04/24: Neurology input noted, patient unfortunately with no improvement mental status [place], continues with congestion, will defer with Room Inspector for lasix in the setting of renal failure. will give kayexlate for hyperkalemia, still moans and groans, mittens in place. 04/25: Patient currently intubated, on restraints for safety, Profund encephalopathy persist, although awake she is not following any commands, Call placed to [place] to see if they will accept transfer for ENT evaluation, while CT neck was negative, it was degraded by motion and unable to determent why patient had this stridor, Racemic Epinephrine was given, [place] is on ICU saturation, but will call back with an ENT to discuss case. Renal function mildly worse, continue to monitor. Per cardiology, no further arrhythmias noted since admission. Given short duration of atrial fibrillation, along with pt's age, renal fxn, and other co- morbidities,...will resume additional medical therapies for underlying severe multi-vessel CAD (bASA & Plavix). Pt has previously declined intervention of known lesions as per her Primary Plant Controller. 04/26: Now with febrile illness, ?developing infection, start on empiric abx, check lactate level, blood cultures, continue management per Director Of Retail, Monitor leukocytosis, agree with Trach, family updated about denials in transfer request from outside hospitals. 04/27: WBC improving some, still with fever despite antibotics, ID consulted. CXR clear, continue current management, Trach will be planned if ok with family. Blood sugar remains elevated, will adjust insulin LANTUS to 40 units. Patient had previously completed Cefepime. Mental status remains unchanged, still moves upper ext. continue restraints 04/28: Continue supportive care. No new fever noted. Critical care physician will determine if patient should be have a trial of extubation again or if we should proceed straight to trach. Again continue to monitor mental status for complete improvement. 04/29: Per Director Of Retail discussion with family, will proceed to Tracheostomy, Patients mental status still fluctuating, Continue current management. Surgeon consulted. 04/30: General surgery consulted for trach, continue to trend CBC and BMP. Kidney function slightly worsened today. Increase in Lantus. Tmax 100.2, per ID will consider imaging if leukocytosis remains elevated with fevers. Plavix held for possible tracheostomy next week. 05/01: Patient fever curve is trending down with improving leukocytosis. Patient renal function worsened today. She remains hyperglycemic and her Lantus was increased to her home dose of Novolin 70/30. Patient was rate controlled yesterday due to T-max of 101. She remains on CMV tidal volume 450, rate of 10, PEEP of 6 and 30% FiO2. We will increase the water flushes given slight hypernatremia. Dr. Andrea updated nephew (Carlos) at bedside. CPAP trails. 05/02: Patient's hypernatremia and hyperchloremia slightly worsened and femur fractures were increased. Kidney functions remain the same however BUN is in the 100s. Nephrology is following. Kerr catheter was removed. Awaiting trach placement with possibility on Friday. 05/03: Patient grew Earline in her urine culture however per ID and the Kerr was already exchanged. Patient is on cefepime and Flagyl. Plavix still on hold awaiting trach. CCM started the patient on half-normal saline at 75 mL/h for 2 L related to azatoma and hypernatremia. Patient mental status continues to wax and wane. Creatinine is 3.1 today from 3.4 yesterday. Patient had a bowel movement today. Patient remains hyperglycemic and Lantus was changed from a.m. to p.m.. 05/04: Patient's renal function is improving, surgery obtain consent for trach/PEG scheduled for 05/07, antibiotics to end tomorrow. We will obtain BMP in the a.m. Lantus dosage change from AC to at bedtime in hopes of better glycemic control. 05/05: Patient Lantus dose is changed to twice daily in hopes of better glycemic control. Awaiting surgical procedure hopefully on Friday. Patient's BUN/creatinine improved and hypernatremia has resolved. 05/06: Patient has slight hypernatremia and hyperchloremia and improvement to BUN/creatinine. Better glycemic control. Awaiting trach on Friday. NGT was displaced but now replaced and TF resumed. 05/07 This is a 80-year-old female with HTN, DM, HI, breast CA s/p double mastectomy, TIA who presented with hypoglycemia, AMS who was admitted with SIRS, symptomatic bradycardia, acute metabolic encephalopathy, acute hypoxic respiratory failure, elevated TSH, hyperglycemia, hyponatremia, hypokalemia, ROJELIO and rhabdomyolysis. She is for Trach and PEG today. 05/08: s/p trach and PEG placement yesterday. cont to monitor, wean off from vent as tolertaed 05/09: Patient started on tube feeding and tolerating well. Currently on CPAP setting with newly placed trach. Discussed with case management and patient would need placement. Continue supportive care and follow clinically. 05/10: Continue supportive care, patient is tolerating tube feeding diet. Remains on CPAP with trach. Pending LTAC placement. Subjective Date of service: 05/10/21 Principal diagnosis: Ac. resp failure; AMS; Hypoglycemia; ROJELIO; Hyperkalemia; DM II Interval history: Patient seen and examined. Medical records and medication list reviewed. No acute event overnight noted by the RN. Patient remains on trach tube, started on tube feeding - tolerating well Discussed plan of care at bedside with patient's RN. Objective - Exam Narrative Exam: General appearance: Present: no acute distress, intubated on mechanical ventilation - EENT Eyes: Present: PERRL, EOM intact - Neck Neck: Present: normal ROM, trach in place - Respiratory Respiratory effort: normal Respiratory: bilateral: diminished - Cardiovascular Rhythm: regular Heart Sounds: Present: S1 & S2. Absent: systolic murmur, diastolic murmur - Extremities Extremities: no ischemia, pulses intact, pulses symmetrical, normal temperature, normal color Peripheral Pulses: within normal limits - Abdominal General gastrointestinal: soft, non-tender, non-distended, normal bowel sounds - Integumentary Integumentary: Present: warm, dry - Psychiatric Psychiatric: cooperative - Neurologic Neurologic: moves all extremities - Constitutional Vitals: Vital Signs - 12hr 05/10/21 05/10/21 05/10/21 05:01 06:01 07:00 Temperature 98.9 F Pulse Rate 81 80 75 Pulse Rate [ Anterior Bilateral Throughout] Pulse Rate [ From Monitor] Respiratory 20 11 L 13 Rate Respiratory Rate [Anterior Bilateral Throughout] Blood Pressure 136/48 124/51 138/48 O2 Sat by Pulse 100 100 100 Oximetry O2 Sat by Pulse Oximetry [ Assessment] 05/10/21 05/10/21 05/10/21 08:00 08:01 08:19 Temperature Pulse Rate 75 70 Pulse Rate [ 76 Anterior Bilateral Throughout] Pulse Rate [ 82 From Monitor] Respiratory 18 12 Rate Respiratory 19 Rate [Anterior Bilateral Throughout] Blood Pressure 125/40 115/55 O2 Sat by Pulse 100 100 100 Oximetry O2 Sat by Pulse 100 Oximetry [ Assessment] 05/10/21 05/10/21 05/10/21 09:01 09:15 10:01 Temperature Pulse Rate 78 72 76 Pulse Rate [ Anterior Bilateral Throughout] Pulse Rate [ From Monitor] Respiratory 22 31 H Rate Respiratory Rate [Anterior Bilateral Throughout] Blood Pressure 137/47 137/47 117/45 O2 Sat by Pulse 100 95 Oximetry O2 Sat by Pulse Oximetry [ Assessment] 05/10/21 05/10/21 05/10/21 11:00 11:01 11:47 Temperature 98.5 F Pulse Rate 68 74 Pulse Rate [ Anterior Bilateral Throughout] Pulse Rate [ From Monitor] Respiratory 23 24 Rate Respiratory Rate [Anterior Bilateral Throughout] Blood Pressure 125/56 123/51 O2 Sat by Pulse 100 100 Oximetry O2 Sat by Pulse Oximetry [ Assessment] 05/10/21 05/10/21 05/10/21 12:00 13:14 15:14 Temperature Pulse Rate 71 77 72 Pulse Rate [ 72 Anterior Bilateral Throughout] Pulse Rate [ 79 From Monitor] Respiratory 17 25 H Rate Respiratory 24 Rate [Anterior Bilateral Throughout] Blood Pressure 129/59 145/49 119/48 O2 Sat by Pulse 99 99 Oximetry O2 Sat by Pulse 100 Oximetry [ Assessment] - Labs CBC & Chem 7: 05/08/21 07:07 05/12/21 04:51 Labs: Abnormal lab results 05/09/21 05/09/21 05/10/21 Range/Units 17:37 23:15 05:15 Chloride (98-107) mmol/L BUN (7-17) mg/dL Creatinine (0.6-1.2) mg/dL Glucose (65-100) mg/dL POC Glucose 174 H 152 H 146 H (70-105) mg/dL 05/10/21 05/10/21 Range/Units 05:36 11:29 Chloride 110.7 H (98-107) mmol/L BUN 54 H (7-17) mg/dL Creatinine 2.2 H (0.6-1.2) mg/dL Glucose 164 H (65-100) mg/dL POC Glucose 202 H (70-105) mg/dL HEART Score - HEART Score Troponin: Troponin T 0.065 ng/mL (0.00-0.029) H 04/20/21 03:32
--- NOTE | 2021-05-10 17:26 | XRay Report ---
CHEST 1 VIEW 05/10/2021 3:24 PM INDICATION / CLINICAL INFORMATION: Pneumonia vs Pulmonary Edema. COMPARISON: 05/07/2021 FINDINGS: SUPPORT DEVICES: Stable, satisfactory device positioning. HEART / MEDIASTINUM: Stable. LUNGS / PLEURA: Patchy pulmonary airspace disease in the right lower lung and retrocardiac left lower lung. No significant effusion. No pneumothorax. ADDITIONAL FINDINGS: No significant additional findings. IMPRESSION: 1. Patchy airspace disease in the bilateral lower lungs favor pneumonia over edema. Signer Name: Roly Schmitt MD Signed: 05/10/2021 5:22 PM Workstation Name: [id number]
[2021-05-10] MEDS: LATANOPROST 0.005% OPHTH SOLN 2.5 ML OU SCH (18:37)
[2021-05-10] MEDS: PRAVASTATIN 20 MG TAB PO SCH (21:43)
[2021-05-11] MEDS: ALBUTEROL 2.5 MG/3 ML NEBU IH PRN ×2 (01:10→08:09)
[2021-05-11] MEDS: ACETYLCYSTEINE 20% 200 MG/1 ML *FOR INHALATION USE INHALATION SCH ×3 (01:10→15:31)
[2021-05-11] MEDS: LEVOTHYROXINE 25 MCG TAB PO SCH (05:14)
[2021-05-11] MEDS: hydrALAZINE 25 MG TAB PO SCH ×3 (05:14→21:47)
[2021-05-11] MEDS: INSULIN LISPRO 100 UNIT/ML SUB-Q SCH ×3 (06:00→17:53)
[2021-05-11 07:33] LABS: Calcium 9.7 mg/dL (8.4-10.2)
[2021-05-11] MEDS ORDERED: SODIUM POLYSTYRENE 15 GM/60 ML ORAL LIQD PO ONE (08:15)
[2021-05-11] MEDS: INSULIN NPH/REGULAR 70/30 INJ SUB-Q SCH ×2 (08:52→17:57)
[2021-05-11] MEDS: METOPROLOL TARTRATE 25 MG TAB PO SCH ×2 (09:52→21:50)
[2021-05-11] MEDS: ASPIRIN 81 MG TAB CHEW PO SCH (09:52)
[2021-05-11] MEDS: amLODIPine 10 MG TAB PO SCH (09:52)
[2021-05-11] MEDS: HEPARIN 5,000 UNIT/1 ML VIAL SUB-Q SCH ×2 (09:53→21:46)
[2021-05-11] MEDS: TAMSULOSIN 0.4 MG CAP PO SCH (09:53)
[2021-05-11] MEDS: FAMOTIDINE 20 MG TAB PO SCH (09:53)
[2021-05-11] MEDS: BRIMONIDINE 0.15% OPHTH SOLN OU SCH ×2 (09:54→21:48)
[2021-05-11] MEDS: TIMOLOL 0.5% OPHTH SOLN 5 ML OU SCH (09:54)
[2021-05-11] MEDS: SCOPOLAMINE TRANSDERMAL PATCH 72 HR TD SCH (09:54)
[2021-05-11] MEDS ORDERED: SODIUM POLYSTYRENE 15 GM/60 ML ORAL LIQD PO PRN (10:18)
[2021-05-11] MEDS: DOCUSATE SODIUM 100 MG/10 ML ORAL LIQD PO SCH ×2 (10:19→21:47)
--- NOTE | 2021-05-11 11:52 | Progress Note ---
Assessment and Plan 1. Acute kidney injury: Vasomotor ROJELIO. ATN likely. Renal US negative for hydro. Baseline renal function is unknown. Monitor renal function. Non-oliguric. On 12/02 NS. BUN level continue to improve. Creatinine leveled off. Renal prognosis is guarded. Avoid nephrotoxic agents. Meds dosage based on GFR. Monitor for [employer] needs. 2. FEN: Hypokalemia, Kayexalate ordered, monitor. Hypernatremia, improved, monitor. Monitor lytes and volume status. 3. Acute hypoxemic respiratory failure: Extubated, re-intubated 04/24. Trached 05/07. 4. Acute encephalopathy: MRI brain negative. Seen by Neuro. 5. UTI: Pseudomonas and Earline. 6. Hypertension. 7. DM type 2. 8. Mild rhabdomyolysis. 9. Mildly complex R renal cyst. Subjective: Patient was seen and examined at the bedside. Examination: General appearance: well-developed, appears stated age, trached on vent HEENT: atraumatic Neck: trached Respiratory: Coarse breath sounds heard Heart: S1S2, no murmur Abdomen: soft, obese, bowel sounds heard, NT, PEG tube noted Integumentary: no obvious rash Neurologic: stuporous Ext: no edema noted : Kerr catheter Subjective Date of service: 05/11/21 Principal diagnosis: Ac. resp failure; AMS; Hypoglycemia; ROJELIO; Hyperkalemia; DM II Objective - Vital Signs Vital signs: Vital Signs - 12hr 05/11/21 05/11/21 05/11/21 00:00 00:05 01:00 Temperature 100.5 F H Pulse Rate 86 81 Pulse Rate [ 90 Anterior Bilateral Throughout] Pulse Rate [ From Monitor] Respiratory 14 20 Rate Respiratory 14 Rate [Anterior Bilateral Throughout] Blood Pressure 120/37 125/39 O2 Sat by Pulse 100 100 Oximetry O2 Sat by Pulse 100 Oximetry [ Assessment] 05/11/21 05/11/21 05/11/21 01:10 02:00 03:00 Temperature Pulse Rate 83 86 80 Pulse Rate [ Anterior Bilateral Throughout] Pulse Rate [ 79 From Monitor] Respiratory 18 21 16 Rate Respiratory Rate [Anterior Bilateral Throughout] Blood Pressure 125/39 146/55 O2 Sat by Pulse 100 98 100 Oximetry O2 Sat by Pulse Oximetry [ Assessment] 05/11/21 05/11/21 05/11/21 03:13 03:15 04:00 Temperature 99.3 F Pulse Rate 83 86 Pulse Rate [ Anterior Bilateral Throughout] Pulse Rate [ From Monitor] Respiratory 18 18 Rate Respiratory Rate [Anterior Bilateral Throughout] Blood Pressure 138/52 O2 Sat by Pulse 100 100 Oximetry O2 Sat by Pulse Oximetry [ Assessment] 05/11/21 05/11/21 05/11/21 05:00 05:05 05:14 Temperature Pulse Rate 79 79 86 Pulse Rate [ Anterior Bilateral Throughout] Pulse Rate [ From Monitor] Respiratory 15 18 Rate Respiratory Rate [Anterior Bilateral Throughout] Blood Pressure 138/52 138/52 O2 Sat by Pulse 100 100 Oximetry O2 Sat by Pulse Oximetry [ Assessment] 05/11/21 05/11/21 05/11/21 06:00 06:42 07:00 Temperature Pulse Rate 80 83 85 Pulse Rate [ Anterior Bilateral Throughout] Pulse Rate [ From Monitor] Respiratory 21 15 Rate Respiratory Rate [Anterior Bilateral Throughout] Blood Pressure 144/56 144/56 O2 Sat by Pulse 100 100 Oximetry O2 Sat by Pulse Oximetry [ Assessment] 05/11/21 05/11/21 05/11/21 07:26 08:00 08:09 Temperature 99.6 F Pulse Rate 83 83 Pulse Rate [ 86 Anterior Bilateral Throughout] Pulse Rate [ 77 From Monitor] Respiratory 18 25 H Rate Respiratory 21 Rate [Anterior Bilateral Throughout] Blood Pressure 140/55 140/55 O2 Sat by Pulse 100 100 Oximetry O2 Sat by Pulse 100 Oximetry [ Assessment] 05/11/21 05/11/21 05/11/21 09:00 09:52 10:00 Temperature Pulse Rate 84 90 83 Pulse Rate [ Anterior Bilateral Throughout] Pulse Rate [ From Monitor] Respiratory 29 H 22 Rate Respiratory Rate [Anterior Bilateral Throughout] Blood Pressure 149/54 149/54 146/50 O2 Sat by Pulse 100 100 Oximetry O2 Sat by Pulse Oximetry [ Assessment] 05/11/21 05/11/21 11:00 11:15 Temperature Pulse Rate 76 80 Pulse Rate [ Anterior Bilateral Throughout] Pulse Rate [ From Monitor] Respiratory 23 33 H Rate Respiratory Rate [Anterior Bilateral Throughout] Blood Pressure 146/50 170/47 O2 Sat by Pulse 100 100 Oximetry O2 Sat by Pulse Oximetry [ Assessment] - Lab 05/08/21 07:07 05/11/21 07:10 Most recent lab results ABG pH 7.454 (7.320-7.450) H 05/08/21 03:05 ABG O2 Saturation 96.1 (0-100) 05/08/21 03:05 Calcium 9.7 mg/dL (8.4-10.2) 05/11/21 07:10 Phosphorus 2.60 mg/dL (2.5-4.5) 04/22/21 08:00 Magnesium 2.10 mg/dL (1.7-2.3) 04/23/21 07:02 Urine Creatinine 24.4 mg/dL (0.1-20.0) H 04/16/21 00:12 Urine Sodium 97 mmol/L 04/16/21 00:12 Medications & Allergies - Medications Allergies/Adverse Reactions: Allergies No Known Allergies Allergy (Unverified 04/15/21 17:41) Home Medications: Home Medications Medication Instructions Recorded Confirmed Last Taken Type Betaxolol HCl [Betoptic S 0.25% 1 drop OU BID 04/16/21 04/16/21 Unknown History SUSP] Bimatoprost [Lumigan 0.01%] 1 drop OU QPM 04/16/21 04/16/21 Unknown History Brimonidine Tartrate [Brimonidine 5 ml OU BID 04/16/21 04/16/21 Unknown History Tartrate 0.2%] Furosemide [Lasix TAB] 40 mg PO QDAY 04/16/21 04/16/21 Unknown History Gabapentin [Neurontin] 300 mg PO Q8HR 04/16/21 04/16/21 Unknown History HYDROcodone/APAP 10-325 [[place] 1 each PO Q6HR PRN 04/16/21 04/16/21 Unknown History 10/325] Hydralazine HCl 50 mg PO Q4HR 04/16/21 04/16/21 Unknown History Insulin Aspart Prot/Insuln Asp 52 units SQ HS 04/16/21 04/16/21 Unknown History [Novolog Mix 70-30 Flexpen] Metoprolol [Lopressor] 25 mg PO BID 04/16/21 04/16/21 Unknown History Pravastatin [Pravachol] 20 mg PO QHS 04/16/21 04/16/21 Unknown History Promethazine [Phenergan] 25 mg PO Q6HR 04/16/21 04/16/21 Unknown History allopurinoL [Zyloprim] 150 mg PO QDAY 04/16/21 04/16/21 Unknown History Active Medications: Generic Name Dose Route Start Last Admin Trade Name Freq PRN Reason Stop Dose Admin Acetaminophen 650 mg 04/15/21 19:11 04/30/21 20:14 Acetaminophen 325 Mg Tab PO 650 mg Q6H PRN Administration Pain MILD(1-3)/Fever >100.5/SEX[place] Acetylcysteine 200 mg 05/09/21 16:00 05/11/21 08:09 Acetylcysteine 20% 200 Mg/1 Ml *For Inhalation Use* INHALATION 05/16/21 15:59 Not Given Q8HRT [facility]ANG Albuterol 2.5 mg 05/09/21 13:16 05/11/21 08:09 Albuterol 2.5 Mg/3 Ml Nebu IH 2.5 mg Q6HRT PRN Administration Shortness Of Breath Amlodipine Besylate 10 mg 04/25/21 10:00 05/11/21 09:52 Amlodipine 10 Mg Tab PO 10 mg DAILY WOLFGANG Administration Lipase/Protease/Amylase 1 each 04/16/21 12:52 Lipase 10,500/Protease 25,000/Amylase 43,750 (Units) Dr Simpson FEEDTUBE PRN PRN For Clogged Feeding Tube Aspirin 81 mg 04/25/21 10:00 05/11/21 09:52 Aspirin 81 Mg Tab Chew PO 81 mg QDAY WOLFGANG Administration Bisacodyl 10 mg 04/17/21 11:01 05/03/21 09:50 Bisacodyl 10 Mg Rect Supp DE 10 mg QDAY PRN Administration Constipation Brimonidine Tartrate 1 drops 04/17/21 22:00 05/11/21 09:54 Brimonidine 0.15% Ophth Soln OU 1 drops BID WOLFGANG Administration Docusate Sodium 100 mg 04/29/21 15:00 05/10/21 21:42 Docusate Sodium 100 Mg/10 Ml Oral Liqd PO 100 mg BID WOLFGANG Administration Famotidine 20 mg 04/17/21 10:00 05/11/21 09:53 Famotidine 20 Mg Tab PO 20 mg DAILY WOLFGANG Administration Fentanyl 50 mcg 05/07/21 09:00 Fentanyl 100 Mcg/2 Ml Inj IV Q4H PRN Pain , Severe (7-10) Heparin Sodium (Porcine) 5,000 unit 04/15/21 22:00 05/11/21 09:53 Heparin 5,000 Unit/1 Ml Vial SUB-Q 5,000 unit Q12HR WOLFGANG Administration Hydralazine HCl 10 mg 04/16/21 18:00 04/24/21 05:25 Hydralazine 20 Mg/1 Ml Inj IV 10 mg Q4HR PRN Administration Hypertension Hydralazine HCl 50 mg 05/03/21 14:00 05/11/21 05:14 Hydralazine 25 Mg Tab PO 50 mg Q8HR WOLFGANG Administration Hydrophilic Ointment 1 applic 04/15/21 17:24 Lip Therapy Vaseline TP Q2HR PRN Dry Lips Insulin Human Isoph/Insulin Regular 25 unit 05/09/21 08:00 05/11/21 08:52 Insulin Nph/Regular 70/30 Inj SUB-Q 25 unit BIDDIAB WOLFGANG Administration Insulin Human Lispro 0 unit 04/16/21 15:00 05/11/21 06:00 Insulin Lispro 100 Unit/Ml SUB-Q Not Given Q6HR [facility] Protocol Latanoprost 1 drops 04/17/21 18:00 05/10/21 18:37 Latanoprost 0.005% Ophth Soln 2.5 Ml OU 1 drops QPM WOLFGANG Administration Levothyroxine Sodium 25 mcg 04/19/21 06:00 05/11/21 05:14 Levothyroxine 25 Mcg Tab PO 25 mcg DAILY@0600 WOLFGANG Administration Metoprolol Tartrate 25 mg 04/19/21 10:00 05/11/21 09:52 Metoprolol Tartrate 25 Mg Tab PO 25 mg BID WOLFGANG Administration Multi-Ingred Cream/Lotion/Oil/Oint 1 applic 04/15/21 17:24 05/04/21 09:25 Mineral Oil/Petrolatum, White Ophth Oint 3.5 Gm OU 1 applic Q4HR PRN Administration Dry Eye(s) Pravastatin Sodium 20 mg 04/19/21 22:00 05/10/21 21:43 Pravastatin 20 Mg Tab PO 20 mg QHS WOLFGANG Administration Scopolamine 1 each 04/20/21 18:00 05/11/21 09:54 Scopolamine Transdermal Patch 72 Hr TD 1 each Q3D WOLFGANG Administration Simple Syrup 15 ml 04/16/21 12:52 Simple Syrup 15 Ml FEEDTUBE PRN PRN Hypoglycemia Simple Syrup 30 ml 04/16/21 12:52 Simple Syrup 15 Ml FEEDTUBE PRN PRN Hypoglycemia Sodium Bicarbonate 325 mg 04/16/21 12:52 Sodium Bicarbonate 325 Mg Tab FEEDTUBE PRN PRN For Clogged Feeding Tube Sodium Chloride 10 ml 04/15/21 22:00 05/11/21 09:53 Sodium Chloride 0.9% 10 Ml Flush Syringe IV 10 ml BID WOLFGANG Administration Sodium Chloride 10 ml 04/15/21 19:11 04/24/21 05:27 Sodium Chloride 0.9% 10 Ml Flush Syringe IV 10 ml PRN PRN Administration LINE FLUSH Tamsulosin HCl 0.4 mg 04/25/21 14:00 05/11/21 09:53 Tamsulosin 0.4 Mg Cap PO 0.4 mg QDAY WOLFGANG Administration Timolol Maleate 1 drops 04/19/21 10:00 05/11/21 09:54 Timolol 0.5% Ophth Soln 5 Ml OU 1 drops QDAY WOLFGANG Administration
--- NOTE | 2021-05-11 13:09 | Progress Note ---
Assessment and Plan Acute respiratory failure, on mechanical ventilatory support. Acute toxic metabolic encephalopathy Hypoglycemia ROJELIO Hyperkalemia Rhabdomyolysis Possible seizure activity DM II HTN CAD Obesity H/O breast cancer H/O TIA Leukocytosis Elevated serum TSH, possible hypothyroidism - get CXR and address - suspect acute pulmonary edema; stop IVF - increase Flomax dose re: retention of 2 Liters - add Robinul 1mg p.o. tid re: increased secretions - follow BUN/CR - LTAC evaluation ongoing - continue care as below otherwise; - continue to wean supplemental oxygen for target O2 sat's > 90% acutely - VAP bundle addressed - continue lung protective strategies - continue bronchodilators with pulmonary hygiene per RT - continue Daily SAT and SBT assessment as tolerated - wean per pulmonary driven protocols otherwise - continue accuchecks with glycemic control per SSI (While critically ill target blood glucose of 140-180 mg/dL; avoid hypoglycemia) - sedation prn for target RASS 0 to -1 - avoid nephrotoxins, renally dose all medications - continue to avoid benzodiazepine's, reduce the possibility of delirium - complete AB's per ID rec's re: Cefepime and Flagyl - follow clinically trend fevers / WBC - prn analgesia per CPOT score - Maintenance of sleep-wake cycle, avoid delirium - continue enteral nutritional support at goal rate as tolerated - G.I. & VTE prophylaxis - PT/OT/ROM exercises - continue Flomax re: retention - continue mobility protocols for pressure ulcer prophylaxis - Monitor hemodynamics closely - continue other care per attending / other consultants - discharge planning ongoing concurrently .... Re-evaluate in am & prn CONDITION: CRITICAL PROGNOSIS: GUARDED CODE STATUS: FULL CODE The high probability of a clinically significant, sudden or life-threatening deterioration of the [respiratory, cardiovascular, GI & neurologic] system(s) required my full and direct attention, intervention and personal management. The aggregate critical care time was [33] minutes without overlap. Time includes s pent on; [x] Data Review and interpretation [x] Patient assessment and monitoring of vital signs [x] Documentation [x] Medication orders and management Subjective Date of service: 05/11/21 Principal diagnosis: Ac. resp failure; AMS; Hypoglycemia; ROJELIO; Hyperkalemia; DM II Interval history: Patient is seen today for: Acute respiratory failure; AMS; Hypoglycemia; ROJELIO; Hyperkalemia; DM II; H/O breast cancer; Elevated serum TSH, possible hypothyroidism Seen and examined at bedside; 24hour events reviewed; nursing and respiratory care staff consulted; no adverse overnight events reported to me; resting peacefully in bed; Objective Vital Signs - 12hr 05/11/21 05/11/21 05/11/21 01:10 02:00 03:00 Temperature Pulse Rate 83 86 80 Pulse Rate [ Anterior Bilateral Throughout] Pulse Rate [ 79 From Monitor] Respiratory 18 21 16 Rate Respiratory Rate [Anterior Bilateral Throughout] Blood Pressure 125/39 146/55 O2 Sat by Pulse 100 98 100 Oximetry O2 Sat by Pulse Oximetry [ Assessment] 05/11/21 05/11/21 05/11/21 03:13 03:15 04:00 Temperature 99.3 F Pulse Rate 83 86 Pulse Rate [ Anterior Bilateral Throughout] Pulse Rate [ From Monitor] Respiratory 18 18 Rate Respiratory Rate [Anterior Bilateral Throughout] Blood Pressure 138/52 O2 Sat by Pulse 100 100 Oximetry O2 Sat by Pulse Oximetry [ Assessment] 05/11/21 05/11/21 05/11/21 05:00 05:05 05:14 Temperature Pulse Rate 79 79 86 Pulse Rate [ Anterior Bilateral Throughout] Pulse Rate [ From Monitor] Respiratory 15 18 Rate Respiratory Rate [Anterior Bilateral Throughout] Blood Pressure 138/52 138/52 O2 Sat by Pulse 100 100 Oximetry O2 Sat by Pulse Oximetry [ Assessment] 05/11/21 05/11/21 05/11/21 06:00 06:42 07:00 Temperature Pulse Rate 80 83 85 Pulse Rate [ Anterior Bilateral Throughout] Pulse Rate [ From Monitor] Respiratory 21 15 Rate Respiratory Rate [Anterior Bilateral Throughout] Blood Pressure 144/56 144/56 O2 Sat by Pulse 100 100 Oximetry O2 Sat by Pulse Oximetry [ Assessment] 05/11/21 05/11/21 05/11/21 07:26 08:00 08:09 Temperature 99.6 F Pulse Rate 83 83 Pulse Rate [ 86 Anterior Bilateral Throughout] Pulse Rate [ 77 From Monitor] Respiratory 18 25 H Rate Respiratory 21 Rate [Anterior Bilateral Throughout] Blood Pressure 140/55 140/55 O2 Sat by Pulse 100 100 Oximetry O2 Sat by Pulse 100 Oximetry [ Assessment] 05/11/21 05/11/21 05/11/21 09:00 09:52 10:00 Temperature Pulse Rate 84 90 83 Pulse Rate [ Anterior Bilateral Throughout] Pulse Rate [ From Monitor] Respiratory 29 H 22 Rate Respiratory Rate [Anterior Bilateral Throughout] Blood Pressure 149/54 149/54 146/50 O2 Sat by Pulse 100 100 Oximetry O2 Sat by Pulse Oximetry [ Assessment] 05/11/21 05/11/21 05/11/21 11:00 11:15 12:00 Temperature Pulse Rate 76 80 80 Pulse Rate [ Anterior Bilateral Throughout] Pulse Rate [ 73 From Monitor] Respiratory 23 33 H 30 H Rate Respiratory Rate [Anterior Bilateral Throughout] Blood Pressure 146/50 170/47 147/52 O2 Sat by Pulse 100 100 100 Oximetry O2 Sat by Pulse Oximetry [ Assessment] 05/11/21 12:05 Temperature 99.4 F Pulse Rate Pulse Rate [ Anterior Bilateral Throughout] Pulse Rate [ From Monitor] Respiratory Rate Respiratory Rate [Anterior Bilateral Throughout] Blood Pressure O2 Sat by Pulse Oximetry O2 Sat by Pulse Oximetry [ Assessment] Constitutional: no acute distress, other (elderly obese female with mildly increased respiratory effort at rest on MVS) Eyes: non-icteric ENT: oropharynx moist, oropharyngeal exudate pre, other (+ midline tracheostomy without bleeding stoma) Neck: supple, no lymphadenopathy, no JVD, other (large circumference) Effort: mildly labored Ascultation: Bilateral: clear, diminished breath sounds, rales, rhonchi, other (mild stridorous sounds) Percussion: Bilateral: not dull Cardiovascular: regular rate and rhythm, other (S1,S2) Gastrointestinal: normoactive bowel sounds, hypoactive bowel sounds, non-tender, non-distended (protuberant) Integumentary: normal Extremities: no cyanosis, no edema, pulses normal, no ischemia or petechiae Neurologic: non-focal exam (tracks voice), pupils equal and round, CN II-XII normal, motor strength normal and Psychiatric: other (falt affect) CBC and BMP: 05/08/21 07:07 05/11/21 07:10 ABG, PT/INR, D-dimer: ABG ABG pH 7.454 (7.320-7.450) H 05/08/21 03:05 POC ABG pCO2 34.2 mmHg (32.0-48.0) 05/08/21 03:05 POC ABG pO2 82.1 mmHg (83-108) L 05/08/21 03:05 POC ABG HCO3 23.5 05/08/21 03:05 ABG O2 Saturation 96.1 (0-100) 05/08/21 03:05 PT/INR, D-dimer PT 14.8 Sec. (12.2-14.9) 05/07/21 08:20 INR 1.11 (0.87-1.13) 05/07/21 08:20 Abnormal lab findings: Abnormal Labs 04/15/21 04/15/21 04/15/21 17:00 17:20 17:20 WBC 11.2 H RBC Hgb Hct 43.0 H MCV RDW 15.3 H Plt Count Lymph % (Auto) 12.8 L Seg Neutrophils % 82.4 H Seg Neuts % (Manual) Lymphocytes % (Manual) Monocytes % (Manual) Seg Neutrophils # 9.3 H Seg Neutrophils # Man Lymphocytes # (Manual) Monocytes # (Manual) ABG pH POC ABG pCO2 POC ABG pO2 ABG Hemoglobin ABG Oxyhemoglobin ABG Sodium ABG Potassium ABG Chloride ABG Glucose Carboxyhemoglobin Sodium 129 L Potassium 7.1 H* Chloride 91.9 L BUN 35 H Creatinine 2.8 H Glucose POC Glucose 191 H Calcium Phosphorus Magnesium AST 69 H ALT Total Creatine Kinase CK-MB (CK-2) Troponin T Total Protein Albumin HDL Cholesterol TSH Free T3 Index Arterial Blood Glucose Arterial Blood Ionized Calcium Urine pH Urine WBC (Auto) Urine Creatinine Acetaminophen 04/15/21 04/15/21 04/15/21 17:20 17:20 17:20 WBC RBC Hgb Hct MCV RDW Plt Count Lymph % (Auto) Seg Neutrophils % Seg Neuts % (Manual) Lymphocytes % (Manual) Monocytes % (Manual) Seg Neutrophils # Seg Neutrophils # Man Lymphocytes # (Manual) Monocytes # (Manual) ABG pH POC ABG pCO2 POC ABG pO2 ABG Hemoglobin ABG Oxyhemoglobin ABG Sodium ABG Potassium ABG Chloride ABG Glucose Carboxyhemoglobin Sodium Potassium Chloride BUN Creatinine Glucose POC Glucose Calcium Phosphorus Magnesium AST ALT Total Creatine Kinase 1000 H CK-MB (CK-2) Troponin T Total Protein Albumin HDL Cholesterol TSH 14.190 H Free T3 Index Arterial Blood Glucose Arterial Blood Ionized Calcium Urine pH Urine WBC (Auto) Urine Creatinine Acetaminophen 5.0 L 04/15/21 04/15/21 04/15/21 20:49 21:23 23:15 WBC RBC Hgb Hct MCV RDW Plt Count Lymph % (Auto) Seg Neutrophils % Seg Neuts % (Manual) Lymphocytes % (Manual) Monocytes % (Manual) Seg Neutrophils # Seg Neutrophils # Man Lymphocytes # (Manual) Monocytes # (Manual) ABG pH 7.557 H POC ABG pCO2 30.0 L POC ABG pO2 493.3 H ABG Hemoglobin ABG Oxyhemoglobin 99.0 H ABG Sodium 131.5 L ABG Potassium 4.7 H ABG Chloride 94.0 L ABG Glucose 218 H Carboxyhemoglobin Sodium Potassium Chloride BUN Creatinine Glucose POC Glucose 173 H 207 H Calcium Phosphorus Magnesium AST ALT Total Creatine Kinase CK-MB (CK-2) Troponin T Total Protein Albumin HDL Cholesterol TSH Free T3 Index Arterial Blood Glucose 218 H Arterial Blood Ionized Calcium 5.4 H Urine pH Urine WBC (Auto) Urine Creatinine Acetaminophen 04/16/21 04/16/21 04/16/21 00:09 00:12 00:19 WBC RBC Hgb Hct MCV RDW Plt Count Lymph % (Auto) Seg Neutrophils % Seg Neuts % (Manual) Lymphocytes % (Manual) Monocytes % (Manual) Seg Neutrophils # Seg Neutrophils # Man Lymphocytes # (Manual) Monocytes # (Manual) ABG pH POC ABG pCO2 POC ABG pO2 ABG Hemoglobin ABG Oxyhemoglobin ABG Sodium ABG Potassium ABG Chloride ABG Glucose Carboxyhemoglobin Sodium Potassium 6.7 H* Chloride BUN Creatinine Glucose POC Glucose Calcium Phosphorus Magnesium AST ALT Total Creatine Kinase CK-MB (CK-2) Troponin T Total Protein Albumin HDL Cholesterol TSH Free T3 Index Arterial Blood Glucose Arterial Blood Ionized Calcium Urine pH 9.0 H Urine WBC (Auto) Urine Creatinine 24.4 H Acetaminophen 04/16/21 04/16/21 04/16/21 03:43 03:55 05:02 WBC 21.2 H RBC Hgb Hct 43.4 H MCV 98 H RDW Plt Count Lymph % (Auto) Seg Neutrophils % Seg Neuts % (Manual) 84.0 H Lymphocytes % (Manual) 2.0 L Monocytes % (Manual) 10.0 H Seg Neutrophils # Seg Neutrophils # Man 17.8 H Lymphocytes # (Manual) 0.4 L Monocytes # (Manual) 2.1 H ABG pH 7.461 H POC ABG pCO2 POC ABG pO2 ABG Hemoglobin ABG Oxyhemoglobin ABG Sodium 126.8 L ABG Potassium 5.4 H ABG Chloride 90.0 L ABG Glucose 325 H Carboxyhemoglobin Sodium Potassium Chloride BUN Creatinine Glucose POC Glucose 391 H Calcium Phosphorus Magnesium AST ALT Total Creatine Kinase CK-MB (CK-2) Troponin T Total Protein Albumin HDL Cholesterol TSH Free T3 Index Arterial Blood Glucose 325 H Arterial Blood Ionized Calcium Urine pH Urine WBC (Auto) Urine Creatinine Acetaminophen 04/16/21 04/16/21 04/16/21 05:02 11:34 16:09 WBC RBC Hgb Hct MCV RDW Plt Count Lymph % (Auto) Seg Neutrophils % Seg Neuts % (Manual) Lymphocytes % (Manual) Monocytes % (Manual) Seg Neutrophils # Seg Neutrophils # Man Lymphocytes # (Manual) Monocytes # (Manual) ABG pH POC ABG pCO2 POC ABG pO2 ABG Hemoglobin ABG Oxyhemoglobin ABG Sodium ABG Potassium ABG Chloride ABG Glucose Carboxyhemoglobin Sodium 131 L Potassium 5.9 H Chloride 88.7 L BUN 34 H Creatinine 2.9 H Glucose 249 H POC Glucose 382 H 300 H Calcium 10.4 H Phosphorus Magnesium AST 65 H ALT Total Creatine Kinase CK-MB (CK-2) Troponin T Total Protein Albumin 3.8 L HDL Cholesterol TSH Free T3 Index Arterial Blood Glucose Arterial Blood Ionized Calcium Urine pH Urine WBC (Auto) Urine Creatinine Acetaminophen 04/16/21 04/16/21 04/16/21 18:15 19:01 19:01 WBC RBC Hgb Hct MCV RDW Plt Count Lymph % (Auto) Seg Neutrophils % Seg Neuts % (Manual) Lymphocytes % (Manual) Monocytes % (Manual) Seg Neutrophils # Seg Neutrophils # Man Lymphocytes # (Manual) Monocytes # (Manual) ABG pH POC ABG pCO2 POC ABG pO2 ABG Hemoglobin ABG Oxyhemoglobin ABG Sodium ABG Potassium ABG Chloride ABG Glucose Carboxyhemoglobin Sodium 125 L Potassium 5.5 H Chloride 84.5 L BUN 37 H Creatinine 3.5 H Glucose 236 H POC Glucose 287 H Calcium Phosphorus Magnesium AST ALT Total Creatine Kinase CK-MB (CK-2) Troponin T Total Protein Albumin HDL Cholesterol TSH Free T3 Index 1.1 L Arterial Blood Glucose Arterial Blood Ionized Calcium Urine pH Urine WBC (Auto) Urine Creatinine Acetaminophen 04/16/21 04/16/21 04/17/21 19:01 23:48 03:09 WBC RBC Hgb Hct MCV RDW Plt Count Lymph % (Auto) Seg Neutrophils % Seg Neuts % (Manual) Lymphocytes % (Manual) Monocytes % (Manual) Seg Neutrophils # Seg Neutrophils # Man Lymphocytes # (Manual) Monocytes # (Manual) ABG pH 7.518 H POC ABG pCO2 POC ABG pO2 ABG Hemoglobin ABG Oxyhemoglobin ABG Sodium 126.4 L ABG Potassium ABG Chloride 89.0 L ABG Glucose 200 H Carboxyhemoglobin Sodium Potassium 5.6 H Chloride BUN Creatinine Glucose POC Glucose 243 H Calcium Phosphorus Magnesium AST ALT Total Creatine Kinase CK-MB (CK-2) Troponin T Total Protein Albumin HDL Cholesterol TSH Free T3 Index Arterial Blood Glucose 200 H Arterial Blood Ionized Calcium 4.4 L Urine pH Urine WBC (Auto) Urine Creatinine Acetaminophen 04/17/21 04/17/21 04/17/21 05:04 06:14 11:55 WBC RBC Hgb Hct MCV RDW Plt Count Lymph % (Auto) Seg Neutrophils % Seg Neuts % (Manual) Lymphocytes % (Manual) Monocytes % (Manual) Seg Neutrophils # Seg Neutrophils # Man Lymphocytes # (Manual) Monocytes # (Manual) ABG pH POC ABG pCO2 POC ABG pO2 ABG Hemoglobin ABG Oxyhemoglobin ABG Sodium ABG Potassium ABG Chloride ABG Glucose Carboxyhemoglobin Sodium 129 L Potassium Chloride 86.1 L BUN 39 H Creatinine 3.5 H Glucose 202 H POC Glucose 208 H 276 H Calcium Phosphorus Magnesium AST ALT Total Creatine Kinase 750 H CK-MB (CK-2) Troponin T 0.119 H* D Total Protein Albumin HDL Cholesterol 61 H TSH Free T3 Index Arterial Blood Glucose Arterial Blood Ionized Calcium Urine pH Urine WBC (Auto) Urine Creatinine Acetaminophen 04/17/21 04/17/21 04/17/21 15:35 15:35 17:07 WBC 17.1 H RBC Hgb Hct MCV RDW Plt Count Lymph % (Auto) Seg Neutrophils % Seg Neuts % (Manual) Lymphocytes % (Manual) Monocytes % (Manual) Seg Neutrophils # Seg Neutrophils # Man Lymphocytes # (Manual) Monocytes # (Manual) ABG pH POC ABG pCO2 POC ABG pO2 ABG Hemoglobin ABG Oxyhemoglobin ABG Sodium ABG Potassium ABG Chloride ABG Glucose Carboxyhemoglobin Sodium Potassium Chloride BUN Creatinine Glucose POC Glucose 148 H Calcium Phosphorus Magnesium AST ALT Total Creatine Kinase 615 H CK-MB (CK-2) 9.1 H Troponin T Total Protein Albumin HDL Cholesterol TSH Free T3 Index Arterial Blood Glucose Arterial Blood Ionized Calcium Urine pH Urine WBC (Auto) Urine Creatinine Acetaminophen 04/18/21 04/18/21 04/18/21 00:01 03:00 05:24 WBC RBC Hgb Hct MCV RDW Plt Count Lymph % (Auto) Seg Neutrophils % Seg Neuts % (Manual) Lymphocytes % (Manual) Monocytes % (Manual) Seg Neutrophils # Seg Neutrophils # Man Lymphocytes # (Manual) Monocytes # (Manual) ABG pH 7.497 H POC ABG pCO2 POC ABG pO2 77.7 L ABG Hemoglobin 10.4 L ABG Oxyhemoglobin ABG Sodium 129.7 L ABG Potassium 2.8 L ABG Chloride 92.0 L ABG Glucose 134 H Carboxyhemoglobin 0.3 L Sodium Potassium Chloride BUN Creatinine Glucose POC Glucose 192 H 162 H Calcium Phosphorus Magnesium AST ALT Total Creatine Kinase CK-MB (CK-2) Troponin T Total Protein Albumin HDL Cholesterol TSH Free T3 Index Arterial Blood Glucose 134 H Arterial Blood Ionized Calcium 4.3 L Urine pH Urine WBC (Auto) Urine Creatinine Acetaminophen 04/18/21 04/18/21 04/18/21 05:34 05:34 05:43 WBC 15.3 H RBC 3.34 L Hgb Hct MCV RDW 15.3 H Plt Count Lymph % (Auto) Seg Neutrophils % Seg Neuts % (Manual) Lymphocytes % (Manual) Monocytes % (Manual) Seg Neutrophils # Seg Neutrophils # Man Lymphocytes # (Manual) Monocytes # (Manual) ABG pH POC ABG pCO2 POC ABG pO2 ABG Hemoglobin ABG Oxyhemoglobin ABG Sodium ABG Potassium ABG Chloride ABG Glucose Carboxyhemoglobin Sodium 134 L Potassium 3.0 L D Chloride 93.5 L BUN 42 H Creatinine 3.1 H Glucose 152 H POC Glucose Calcium Phosphorus Magnesium 1.40 L AST ALT Total Creatine Kinase 427 H CK-MB (CK-2) Troponin T 0.081 H D Total Protein Albumin HDL Cholesterol TSH Free T3 Index Arterial Blood Glucose Arterial Blood Ionized Calcium Urine pH Urine WBC (Auto) Urine Creatinine Acetaminophen 04/18/21 04/18/21 04/18/21 09:11 11:34 17:24 WBC RBC Hgb Hct MCV RDW Plt Count Lymph % (Auto) Seg Neutrophils % Seg Neuts % (Manual) Lymphocytes % (Manual) Monocytes % (Manual) Seg Neutrophils # Seg Neutrophils # Man Lymphocytes # (Manual) Monocytes # (Manual) ABG pH POC ABG pCO2 POC ABG pO2 ABG Hemoglobin ABG Oxyhemoglobin ABG Sodium ABG Potassium ABG Chloride ABG Glucose Carboxyhemoglobin Sodium Potassium Chloride BUN Creatinine Glucose POC Glucose 170 H 151 H Calcium Phosphorus Magnesium AST ALT Total Creatine Kinase CK-MB (CK-2) Troponin T Total Protein Albumin HDL Cholesterol TSH Free T3 Index Arterial Blood Glucose Arterial Blood Ionized Calcium Urine pH Urine WBC (Auto) 34.0 H Urine Creatinine Acetaminophen 04/18/21 04/19/21 04/19/21 23:18 04:09 05:19 WBC RBC Hgb Hct MCV RDW Plt Count Lymph % (Auto) Seg Neutrophils % Seg Neuts % (Manual) Lymphocytes % (Manual) Monocytes % (Manual) Seg Neutrophils # Seg Neutrophils # Man Lymphocytes # (Manual) Monocytes # (Manual) ABG pH 7.476 H POC ABG pCO2 POC ABG pO2 79.4 L ABG Hemoglobin 10.7 L ABG Oxyhemoglobin ABG Sodium 131.2 L ABG Potassium 2.8 L ABG Chloride 94.0 L ABG Glucose 209 H Carboxyhemoglobin 0.3 L Sodium Potassium Chloride BUN Creatinine Glucose POC Glucose 182 H 204 H Calcium Phosphorus Magnesium AST ALT Total Creatine Kinase CK-MB (CK-2) Troponin T Total Protein Albumin HDL Cholesterol TSH Free T3 Index Arterial Blood Glucose 209 H Arterial Blood Ionized Calcium Urine pH Urine WBC (Auto) Urine Creatinine Acetaminophen 04/19/21 04/19/21 04/19/21 07:30 07:30 10:35 WBC 14.8 H RBC 3.20 L Hgb Hct MCV 98 H RDW Plt Count 137 L Lymph % (Auto) Seg Neutrophils % Seg Neuts % (Manual) Lymphocytes % (Manual) Monocytes % (Manual) Seg Neutrophils # Seg Neutrophils # Man Lymphocytes # (Manual) Monocytes # (Manual) ABG pH 7.464 H POC ABG pCO2 POC ABG pO2 81.8 L ABG Hemoglobin 10.8 L ABG Oxyhemoglobin ABG Sodium 129.6 L ABG Potassium ABG Chloride 95.0 L ABG Glucose 238 H Carboxyhemoglobin Sodium 133 L Potassium 2.8 L* Chloride 94.4 L BUN 43 H Creatinine 2.7 H Glucose 255 H POC Glucose Calcium 8.0 L Phosphorus Magnesium AST ALT Total Creatine Kinase CK-MB (CK-2) Troponin T 0.060 H D Total Protein Albumin HDL Cholesterol TSH Free T3 Index Arterial Blood Glucose 238 H Arterial Blood Ionized Calcium Urine pH Urine WBC (Auto) Urine Creatinine Acetaminophen 04/19/21 04/19/21 04/19/21 11:48 20:40 23:04 WBC RBC Hgb Hct MCV RDW Plt Count Lymph % (Auto) Seg Neutrophils % Seg Neuts % (Manual) Lymphocytes % (Manual) Monocytes % (Manual) Seg Neutrophils # Seg Neutrophils # Man Lymphocytes # (Manual) Monocytes # (Manual) ABG pH POC ABG pCO2 POC ABG pO2 ABG Hemoglobin ABG Oxyhemoglobin ABG Sodium ABG Potassium ABG Chloride ABG Glucose Carboxyhemoglobin Sodium Potassium 3.4 L D Chloride BUN Creatinine Glucose POC Glucose 208 H 173 H Calcium Phosphorus Magnesium AST ALT Total Creatine Kinase CK-MB (CK-2) Troponin T Total Protein Albumin HDL Cholesterol TSH Free T3 Index Arterial Blood Glucose Arterial Blood Ionized Calcium Urine pH Urine WBC (Auto) Urine Creatinine Acetaminophen 04/20/21 04/20/21 04/20/21 02:56 03:32 03:32 WBC 13.2 H RBC 3.18 L Hgb Hct MCV RDW Plt Count Lymph % (Auto) Seg Neutrophils % Seg Neuts % (Manual) Lymphocytes % (Manual) Monocytes % (Manual) Seg Neutrophils # Seg Neutrophils # Man Lymphocytes # (Manual) Monocytes # (Manual) ABG pH 7.526 H POC ABG pCO2 POC ABG pO2 ABG Hemoglobin 10.5 L ABG Oxyhemoglobin ABG Sodium 133.5 L ABG Potassium ABG Chloride ABG Glucose 157 H Carboxyhemoglobin 0.3 L Sodium 135 L Potassium Chloride 96.7 L BUN 40 H Creatinine 2.3 H Glucose 142 H POC Glucose Calcium Phosphorus Magnesium AST ALT Total Creatine Kinase CK-MB (CK-2) Troponin T 0.065 H Total Protein Albumin HDL Cholesterol TSH Free T3 Index Arterial Blood Glucose 157 H Arterial Blood Ionized Calcium Urine pH Urine WBC (Auto) Urine Creatinine Acetaminophen 04/20/21 04/20/21 04/20/21 03:46 05:42 11:50 WBC RBC Hgb Hct MCV RDW Plt Count Lymph % (Auto) Seg Neutrophils % Seg Neuts % (Manual) Lymphocytes % (Manual) Monocytes % (Manual) Seg Neutrophils # Seg Neutrophils # Man Lymphocytes # (Manual) Monocytes # (Manual) ABG pH POC ABG pCO2 POC ABG pO2 ABG Hemoglobin ABG Oxyhemoglobin ABG Sodium ABG Potassium ABG Chloride ABG Glucose Carboxyhemoglobin Sodium Potassium Chloride BUN Creatinine Glucose POC Glucose 160 H 194 H Calcium Phosphorus 2.10 L Magnesium AST ALT Total Creatine Kinase CK-MB (CK-2) Troponin T Total Protein Albumin HDL Cholesterol TSH Free T3 Index Arterial Blood Glucose Arterial Blood Ionized Calcium Urine pH Urine WBC (Auto) Urine Creatinine Acetaminophen 04/20/21 04/20/21 04/21/21 17:09 23:18 05:26 WBC RBC Hgb Hct MCV RDW Plt Count Lymph % (Auto) Seg Neutrophils % Seg Neuts % (Manual) Lymphocytes % (Manual) Monocytes % (Manual) Seg Neutrophils # Seg Neutrophils # Man Lymphocytes # (Manual) Monocytes # (Manual) ABG pH POC ABG pCO2 POC ABG pO2 ABG Hemoglobin ABG Oxyhemoglobin ABG Sodium ABG Potassium ABG Chloride ABG Glucose Carboxyhemoglobin Sodium Potassium Chloride BUN Creatinine Glucose POC Glucose 153 H 162 H 164 H Calcium Phosphorus Magnesium AST ALT Total Creatine Kinase CK-MB (CK-2) Troponin T Total Protein Albumin HDL Cholesterol TSH Free T3 Index Arterial Blood Glucose Arterial Blood Ionized Calcium Urine pH Urine WBC (Auto) Urine Creatinine Acetaminophen 04/21/21 04/21/21 04/21/21 05:51 05:51 12:12 WBC RBC 3.20 L Hgb Hct MCV 99 H RDW 15.3 H Plt Count Lymph % (Auto) Seg Neutrophils % Seg Neuts % (Manual) Lymphocytes % (Manual) Monocytes % (Manual) Seg Neutrophils # Seg Neutrophils # Man Lymphocytes # (Manual) Monocytes # (Manual) ABG pH POC ABG pCO2 POC ABG pO2 ABG Hemoglobin ABG Oxyhemoglobin ABG Sodium ABG Potassium ABG Chloride ABG Glucose Carboxyhemoglobin Sodium Potassium Chloride 96.6 L BUN 42 H Creatinine 2.1 H Glucose 171 H POC Glucose 167 H Calcium Phosphorus Magnesium AST ALT Total Creatine Kinase CK-MB (CK-2) Troponin T Total Protein Albumin HDL Cholesterol TSH Free T3 Index Arterial Blood Glucose Arterial Blood Ionized Calcium Urine pH Urine WBC (Auto) Urine Creatinine Acetaminophen 04/21/21 04/21/21 04/22/21 17:13 23:42 05:29 WBC RBC Hgb Hct MCV RDW Plt Count Lymph % (Auto) Seg Neutrophils % Seg Neuts % (Manual) Lymphocytes % (Manual) Monocytes % (Manual) Seg Neutrophils # Seg Neutrophils # Man Lymphocytes # (Manual) Monocytes # (Manual) ABG pH POC ABG pCO2 POC ABG pO2 ABG Hemoglobin ABG Oxyhemoglobin ABG Sodium ABG Potassium ABG Chloride ABG Glucose Carboxyhemoglobin Sodium Potassium Chloride BUN Creatinine Glucose POC Glucose 178 H 253 H 208 H Calcium Phosphorus Magnesium AST ALT Total Creatine Kinase CK-MB (CK-2) Troponin T Total Protein Albumin HDL Cholesterol TSH Free T3 Index Arterial Blood Glucose Arterial Blood Ionized Calcium Urine pH Urine WBC (Auto) Urine Creatinine Acetaminophen 04/22/21 04/22/21 04/22/21 08:00 08:00 12:06 WBC 12.9 H RBC Hgb Hct MCV RDW Plt Count Lymph % (Auto) Seg Neutrophils % Seg Neuts % (Manual) Lymphocytes % (Manual) Monocytes % (Manual) Seg Neutrophils # Seg Neutrophils # Man Lymphocytes # (Manual) Monocytes # (Manual) ABG pH POC ABG pCO2 POC ABG pO2 ABG Hemoglobin ABG Oxyhemoglobin ABG Sodium ABG Potassium ABG Chloride ABG Glucose Carboxyhemoglobin Sodium Potassium Chloride BUN 47 H Creatinine 1.9 H Glucose 252 H POC Glucose 298 H Calcium Phosphorus Magnesium AST ALT Total Creatine Kinase CK-MB (CK-2) Troponin T Total Protein Albumin HDL Cholesterol TSH Free T3 Index Arterial Blood Glucose Arterial Blood Ionized Calcium Urine pH Urine WBC (Auto) Urine Creatinine Acetaminophen 04/22/21 04/22/21 04/23/21 17:34 23:01 05:08 WBC RBC Hgb Hct MCV RDW Plt Count Lymph % (Auto) Seg Neutrophils % Seg Neuts % (Manual) Lymphocytes % (Manual) Monocytes % (Manual) Seg Neutrophils # Seg Neutrophils # Man Lymphocytes # (Manual) Monocytes # (Manual) ABG pH POC ABG pCO2 POC ABG pO2 ABG Hemoglobin ABG Oxyhemoglobin ABG Sodium ABG Potassium ABG Chloride ABG Glucose Carboxyhemoglobin Sodium Potassium Chloride BUN Creatinine Glucose POC Glucose 259 H 280 H 223 H Calcium Phosphorus Magnesium AST ALT Total Creatine Kinase CK-MB (CK-2) Troponin T Total Protein Albumin HDL Cholesterol TSH Free T3 Index Arterial Blood Glucose Arterial Blood Ionized Calcium Urine pH Urine WBC (Auto) Urine Creatinine Acetaminophen 04/23/21 04/23/21 04/23/21 07:02 11:57 17:33 WBC RBC Hgb Hct MCV RDW Plt Count Lymph % (Auto) Seg Neutrophils % Seg Neuts % (Manual) Lymphocytes % (Manual) Monocytes % (Manual) Seg Neutrophils # Seg Neutrophils # Man Lymphocytes # (Manual) Monocytes # (Manual) ABG pH POC ABG pCO2 POC ABG pO2 ABG Hemoglobin ABG Oxyhemoglobin ABG Sodium ABG Potassium ABG Chloride ABG Glucose Carboxyhemoglobin Sodium Potassium Chloride 97.7 L BUN 57 H Creatinine 2.0 H Glucose 253 H POC Glucose 310 H 235 H Calcium Phosphorus Magnesium AST ALT Total Creatine Kinase CK-MB (CK-2) Troponin T Total Protein Albumin HDL Cholesterol TSH Free T3 Index Arterial Blood Glucose Arterial Blood Ionized Calcium Urine pH Urine WBC (Auto) Urine Creatinine Acetaminophen 04/23/21 04/24/21 04/24/21 23:15 05:23 05:46 WBC RBC Hgb Hct MCV RDW Plt Count Lymph % (Auto) Seg Neutrophils % Seg Neuts % (Manual) Lymphocytes % (Manual) Monocytes % (Manual) Seg Neutrophils # Seg Neutrophils # Man Lymphocytes # (Manual) Monocytes # (Manual) ABG pH POC ABG pCO2 POC ABG pO2 ABG Hemoglobin ABG Oxyhemoglobin ABG Sodium ABG Potassium ABG Chloride ABG Glucose Carboxyhemoglobin Sodium Potassium 5.2 H D Chloride BUN 68 H Creatinine 2.3 H Glucose 277 H POC Glucose 197 H 274 H Calcium Phosphorus Magnesium AST ALT Total Creatine Kinase CK-MB (CK-2) Troponin T Total Protein Albumin HDL Cholesterol TSH Free T3 Index Arterial Blood Glucose Arterial Blood Ionized Calcium Urine pH Urine WBC (Auto) Urine Creatinine Acetaminophen 04/24/21 04/24/21 04/24/21 11:33 11:52 17:49 WBC RBC Hgb Hct MCV RDW Plt Count Lymph % (Auto) Seg Neutrophils % Seg Neuts % (Manual) Lymphocytes % (Manual) Monocytes % (Manual) Seg Neutrophils # Seg Neutrophils # Man Lymphocytes # (Manual) Monocytes # (Manual) ABG pH POC ABG pCO2 POC ABG pO2 72.7 L ABG Hemoglobin 11.6 L ABG Oxyhemoglobin 92.9 L ABG Sodium ABG Potassium ABG Chloride ABG Glucose 269 H Carboxyhemoglobin Sodium Potassium Chloride BUN Creatinine Glucose POC Glucose 223 H 252 H Calcium Phosphorus Magnesium AST ALT Total Creatine Kinase CK-MB (CK-2) Troponin T Total Protein Albumin HDL Cholesterol TSH Free T3 Index Arterial Blood Glucose 269 H Arterial Blood Ionized Calcium Urine pH Urine WBC (Auto) Urine Creatinine Acetaminophen 04/24/21 04/24/21 04/25/21 21:00 23:48 03:06 WBC RBC Hgb Hct MCV RDW Plt Count Lymph % (Auto) Seg Neutrophils % Seg Neuts % (Manual) Lymphocytes % (Manual) Monocytes % (Manual) Seg Neutrophils # Seg Neutrophils # Man Lymphocytes # (Manual) Monocytes # (Manual) ABG pH 7.521 H 7.451 H POC ABG pCO2 POC ABG pO2 80.7 L 77.1 L ABG Hemoglobin 10.4 L 11.2 L ABG Oxyhemoglobin ABG Sodium ABG Potassium ABG Chloride ABG Glucose 186 H 165 H Carboxyhemoglobin 0 L Sodium Potassium Chloride BUN Creatinine Glucose POC Glucose 141 H Calcium Phosphorus Magnesium AST ALT Total Creatine Kinase CK-MB (CK-2) Troponin T Total Protein Albumin HDL Cholesterol TSH Free T3 Index Arterial Blood Glucose 186 H 165 H Arterial Blood Ionized Calcium Urine pH Urine WBC (Auto) Urine Creatinine Acetaminophen 04/25/21 04/25/21 04/25/21 03:56 03:56 06:03 WBC 12.3 H RBC 3.40 L Hgb Hct MCV RDW Plt Count Lymph % (Auto) Seg Neutrophils % Seg Neuts % (Manual) Lymphocytes % (Manual) Monocytes % (Manual) Seg Neutrophils # Seg Neutrophils # Man Lymphocytes # (Manual) Monocytes # (Manual) ABG pH POC ABG pCO2 POC ABG pO2 ABG Hemoglobin ABG Oxyhemoglobin ABG Sodium ABG Potassium ABG Chloride ABG Glucose Carboxyhemoglobin Sodium Potassium Chloride BUN 78 H Creatinine 2.5 H Glucose 152 H POC Glucose 171 H Calcium Phosphorus Magnesium AST ALT Total Creatine Kinase CK-MB (CK-2) Troponin T Total Protein Albumin HDL Cholesterol TSH Free T3 Index Arterial Blood Glucose Arterial Blood Ionized Calcium Urine pH Urine WBC (Auto) Urine Creatinine Acetaminophen 04/25/21 04/25/21 04/26/21 11:43 15:37 00:05 WBC RBC Hgb Hct MCV RDW Plt Count Lymph % (Auto) Seg Neutrophils % Seg Neuts % (Manual) Lymphocytes % (Manual) Monocytes % (Manual) Seg Neutrophils # Seg Neutrophils # Man Lymphocytes # (Manual) Monocytes # (Manual) ABG pH POC ABG pCO2 POC ABG pO2 ABG Hemoglobin ABG Oxyhemoglobin ABG Sodium ABG Potassium ABG Chloride ABG Glucose Carboxyhemoglobin Sodium Potassium Chloride BUN Creatinine Glucose POC Glucose 181 H 167 H 144 H Calcium Phosphorus Magnesium AST ALT Total Creatine Kinase CK-MB (CK-2) Troponin T Total Protein Albumin HDL Cholesterol TSH Free T3 Index Arterial Blood Glucose Arterial Blood Ionized Calcium Urine pH Urine WBC (Auto) Urine Creatinine Acetaminophen 04/26/21 04/26/21 04/26/21 04:30 05:44 09:30 WBC RBC Hgb Hct MCV RDW Plt Count Lymph % (Auto) Seg Neutrophils % Seg Neuts % (Manual) Lymphocytes % (Manual) Monocytes % (Manual) Seg Neutrophils # Seg Neutrophils # Man Lymphocytes # (Manual) Monocytes # (Manual) ABG pH 7.529 H POC ABG pCO2 POC ABG pO2 66.1 L ABG Hemoglobin 11.2 L ABG Oxyhemoglobin 92.8 L ABG Sodium ABG Potassium ABG Chloride ABG Glucose 216 H Carboxyhemoglobin 0.3 L Sodium Potassium Chloride BUN 82 H Creatinine 2.7 H Glucose 238 H POC Glucose 202 H Calcium Phosphorus Magnesium AST ALT Total Creatine Kinase CK-MB (CK-2) Troponin T Total Protein Albumin HDL Cholesterol TSH Free T3 Index Arterial Blood Glucose 216 H Arterial Blood Ionized Calcium Urine pH Urine WBC (Auto) Urine Creatinine Acetaminophen 04/26/21 04/26/21 04/26/21 09:30 11:32 17:21 WBC 24.7 H RBC 3.32 L Hgb Hct MCV RDW Plt Count Lymph % (Auto) Seg Neutrophils % Seg Neuts % (Manual) Lymphocytes % (Manual) Monocytes % (Manual) Seg Neutrophils # Seg Neutrophils # Man Lymphocytes # (Manual) Monocytes # (Manual) ABG pH POC ABG pCO2 POC ABG pO2 ABG Hemoglobin ABG Oxyhemoglobin ABG Sodium ABG Potassium ABG Chloride ABG Glucose Carboxyhemoglobin Sodium Potassium Chloride BUN Creatinine Glucose POC Glucose 245 H 264 H Calcium Phosphorus Magnesium AST ALT Total Creatine Kinase CK-MB (CK-2) Troponin T Total Protein Albumin HDL Cholesterol TSH Free T3 Index Arterial Blood Glucose Arterial Blood Ionized Calcium Urine pH Urine WBC (Auto) Urine Creatinine Acetaminophen 04/26/21 04/27/21 04/27/21 23:18 04:23 04:54 WBC RBC Hgb Hct MCV RDW Plt Count Lymph % (Auto) Seg Neutrophils % Seg Neuts % (Manual) Lymphocytes % (Manual) Monocytes % (Manual) Seg Neutrophils # Seg Neutrophils # Man Lymphocytes # (Manual) Monocytes # (Manual) ABG pH 7.549 H POC ABG pCO2 30.0 L POC ABG pO2 64.9 L ABG Hemoglobin 11 L ABG Oxyhemoglobin 93.3 L ABG Sodium ABG Potassium ABG Chloride ABG Glucose 325 H Carboxyhemoglobin 0.3 L Sodium Potassium Chloride BUN Creatinine Glucose POC Glucose 201 H 298 H Calcium Phosphorus Magnesium AST ALT Total Creatine Kinase CK-MB (CK-2) Troponin T Total Protein Albumin HDL Cholesterol TSH Free T3 Index Arterial Blood Glucose 325 H Arterial Blood Ionized Calcium Urine pH Urine WBC (Auto) Urine Creatinine Acetaminophen 04/27/21 04/27/21 04/27/21 07:52 07:52 11:22 WBC 23.0 H RBC 3.32 L Hgb Hct MCV RDW 15.5 H Plt Count Lymph % (Auto) Seg Neutrophils % Seg Neuts % (Manual) Lymphocytes % (Manual) Monocytes % (Manual) Seg Neutrophils # Seg Neutrophils # Man Lymphocytes # (Manual) Monocytes # (Manual) ABG pH POC ABG pCO2 POC ABG pO2 ABG Hemoglobin ABG Oxyhemoglobin ABG Sodium ABG Potassium ABG Chloride ABG Glucose Carboxyhemoglobin Sodium Potassium 3.5 L Chloride BUN 90 H Creatinine 2.8 H Glucose 286 H POC Glucose 251 H Calcium Phosphorus Magnesium AST ALT Total Creatine Kinase CK-MB (CK-2) Troponin T Total Protein Albumin HDL Cholesterol TSH Free T3 Index Arterial Blood Glucose Arterial Blood Ionized Calcium Urine pH Urine WBC (Auto) Urine Creatinine Acetaminophen 04/27/21 04/27/21 04/27/21 17:21 17:45 23:05 WBC RBC Hgb Hct MCV RDW Plt Count Lymph % (Auto) Seg Neutrophils % Seg Neuts % (Manual) Lymphocytes % (Manual) Monocytes % (Manual) Seg Neutrophils # Seg Neutrophils # Man Lymphocytes # (Manual) Monocytes # (Manual) ABG pH POC ABG pCO2 POC ABG pO2 ABG Hemoglobin ABG Oxyhemoglobin ABG Sodium ABG Potassium ABG Chloride ABG Glucose Carboxyhemoglobin Sodium Potassium Chloride BUN Creatinine Glucose POC Glucose 180 H 178 H 189 H Calcium Phosphorus Magnesium AST ALT Total Creatine Kinase CK-MB (CK-2) Troponin T Total Protein Albumin HDL Cholesterol TSH Free T3 Index Arterial Blood Glucose Arterial Blood Ionized Calcium Urine pH Urine WBC (Auto) Urine Creatinine Acetaminophen 04/28/21 04/28/21 04/28/21 03:14 04:13 04:13 WBC 17.6 H RBC 3.03 L Hgb 9.7 L Hct 29.5 L MCV RDW Plt Count Lymph % (Auto) Seg Neutrophils % Seg Neuts % (Manual) Lymphocytes % (Manual) Monocytes % (Manual) Seg Neutrophils # Seg Neutrophils # Man Lymphocytes # (Manual) Monocytes # (Manual) ABG pH 7.507 H POC ABG pCO2 POC ABG pO2 62.0 L ABG Hemoglobin 10.2 L ABG Oxyhemoglobin 91.9 L ABG Sodium ABG Potassium ABG Chloride ABG Glucose 337 H Carboxyhemoglobin 0.2 L Sodium Potassium Chloride BUN 101 H Creatinine 3.1 H Glucose 304 H POC Glucose Calcium Phosphorus Magnesium AST 61 H ALT 64 H Total Creatine Kinase CK-MB (CK-2) Troponin T Total Protein 6.2 L Albumin 2.6 L HDL Cholesterol TSH Free T3 Index Arterial Blood Glucose 337 H Arterial Blood Ionized Calcium Urine pH Urine WBC (Auto) Urine Creatinine Acetaminophen 04/28/21 04/28/21 04/28/21 05:01 11:28 18:23 WBC RBC Hgb Hct MCV RDW Plt Count Lymph % (Auto) Seg Neutrophils % Seg Neuts % (Manual) Lymphocytes % (Manual) Monocytes % (Manual) Seg Neutrophils # Seg Neutrophils # Man Lymphocytes # (Manual) Monocytes # (Manual) ABG pH POC ABG pCO2 POC ABG pO2 ABG Hemoglobin ABG Oxyhemoglobin ABG Sodium ABG Potassium ABG Chloride ABG Glucose Carboxyhemoglobin Sodium Potassium Chloride BUN Creatinine Glucose POC Glucose 282 H 263 H 200 H Calcium Phosphorus Magnesium AST ALT Total Creatine Kinase CK-MB (CK-2) Troponin T Total Protein Albumin HDL Cholesterol TSH Free T3 Index Arterial Blood Glucose Arterial Blood Ionized Calcium Urine pH Urine WBC (Auto) Urine Creatinine Acetaminophen 04/28/21 04/29/21 04/29/21 23:49 03:24 04:22 WBC RBC Hgb Hct MCV RDW Plt Count Lymph % (Auto) Seg Neutrophils % Seg Neuts % (Manual) Lymphocytes % (Manual) Monocytes % (Manual) Seg Neutrophils # Seg Neutrophils # Man Lymphocytes # (Manual) Monocytes # (Manual) ABG pH 7.546 H POC ABG pCO2 POC ABG pO2 52.4 L ABG Hemoglobin 10.5 L ABG Oxyhemoglobin 88.3 L ABG Sodium ABG Potassium ABG Chloride ABG Glucose 217 H Carboxyhemoglobin 0.4 L Sodium 148 H Potassium Chloride BUN 110 H Creatinine 3.1 H Glucose 208 H POC Glucose 238 H Calcium Phosphorus Magnesium AST ALT Total Creatine Kinase CK-MB (CK-2) Troponin T Total Protein Albumin HDL Cholesterol TSH Free T3 Index Arterial Blood Glucose 217 H Arterial Blood Ionized Calcium Urine pH Urine WBC (Auto) Urine Creatinine Acetaminophen 04/29/21 04/29/21 04/29/21 04:22 05:08 11:26 WBC 15.2 H RBC 3.30 L Hgb 9.8 L Hct MCV RDW Plt Count Lymph % (Auto) Seg Neutrophils % Seg Neuts % (Manual) Lymphocytes % (Manual) Monocytes % (Manual) Seg Neutrophils # Seg Neutrophils # Man Lymphocytes # (Manual) Monocytes # (Manual) ABG pH POC ABG pCO2 POC ABG pO2 ABG Hemoglobin ABG Oxyhemoglobin ABG Sodium ABG Potassium ABG Chloride ABG Glucose Carboxyhemoglobin Sodium Potassium Chloride BUN Creatinine Glucose POC Glucose 181 H 218 H Calcium Phosphorus Magnesium AST ALT Total Creatine Kinase CK-MB (CK-2) Troponin T Total Protein Albumin HDL Cholesterol TSH Free T3 Index Arterial Blood Glucose Arterial Blood Ionized Calcium Urine pH Urine WBC (Auto) Urine Creatinine Acetaminophen 04/29/21 04/29/21 04/30/21 17:06 23:06 03:58 WBC RBC Hgb Hct MCV RDW Plt Count Lymph % (Auto) Seg Neutrophils % Seg Neuts % (Manual) Lymphocytes % (Manual) Monocytes % (Manual) Seg Neutrophils # Seg Neutrophils # Man Lymphocytes # (Manual) Monocytes # (Manual) ABG pH 7.547 H POC ABG pCO2 31.3 L POC ABG pO2 58.4 L ABG Hemoglobin 9.6 L ABG Oxyhemoglobin 91.1 L ABG Sodium ABG Potassium ABG Chloride 108.0 H ABG Glucose 248 H Carboxyhemoglobin 0.2 L Sodium Potassium Chloride BUN Creatinine Glucose POC Glucose 223 H 252 H Calcium Phosphorus Magnesium AST ALT Total Creatine Kinase CK-MB (CK-2) Troponin T Total Protein Albumin HDL Cholesterol TSH Free T3 Index Arterial Blood Glucose 248 H Arterial Blood Ionized Calcium Urine pH Urine WBC (Auto) Urine Creatinine Acetaminophen 04/30/21 04/30/21 04/30/21 05:23 05:54 11:47 WBC RBC Hgb Hct MCV RDW Plt Count Lymph % (Auto) Seg Neutrophils % Seg Neuts % (Manual) Lymphocytes % (Manual) Monocytes % (Manual) Seg Neutrophils # Seg Neutrophils # Man Lymphocytes # (Manual) Monocytes # (Manual) ABG pH POC ABG pCO2 POC ABG pO2 ABG Hemoglobin ABG Oxyhemoglobin ABG Sodium ABG Potassium ABG Chloride ABG Glucose Carboxyhemoglobin Sodium Potassium Chloride BUN 118 H Creatinine 3.3 H Glucose 263 H POC Glucose 244 H 237 H Calcium Phosphorus Magnesium AST ALT Total Creatine Kinase CK-MB (CK-2) Troponin T Total Protein Albumin HDL Cholesterol TSH Free T3 Index Arterial Blood Glucose Arterial Blood Ionized Calcium Urine pH Urine WBC (Auto) Urine Creatinine Acetaminophen 04/30/21 04/30/21 04/30/21 17:26 17:45 23:51 WBC RBC Hgb Hct MCV RDW Plt Count Lymph % (Auto) Seg Neutrophils % Seg Neuts % (Manual) Lymphocytes % (Manual) Monocytes % (Manual) Seg Neutrophils # Seg Neutrophils # Man Lymphocytes # (Manual) Monocytes # (Manual) ABG pH POC ABG pCO2 POC ABG pO2 ABG Hemoglobin ABG Oxyhemoglobin ABG Sodium ABG Potassium ABG Chloride ABG Glucose Carboxyhemoglobin Sodium Potassium Chloride BUN Creatinine Glucose POC Glucose 193 H 197 H Calcium Phosphorus Magnesium AST ALT Total Creatine Kinase CK-MB (CK-2) Troponin T Total Protein Albumin HDL Cholesterol TSH Free T3 Index Arterial Blood Glucose Arterial Blood Ionized Calcium Urine pH Urine WBC (Auto) 48.0 H Urine Creatinine Acetaminophen 05/01/21 05/01/21 05/01/21 04:02 04:57 07:11 WBC 12.3 H RBC 2.83 L Hgb 8.8 L Hct 27.3 L MCV RDW Plt Count Lymph % (Auto) Seg Neutrophils % Seg Neuts % (Manual) 80.0 H Lymphocytes % (Manual) 5.0 L Monocytes % (Manual) Seg Neutrophils # Seg Neutrophils # Man 9.8 H Lymphocytes # (Manual) 0.6 L Monocytes # (Manual) ABG pH 7.466 H POC ABG pCO2 POC ABG pO2 61.4 L ABG Hemoglobin 9.0 L ABG Oxyhemoglobin 91.1 L ABG Sodium ABG Potassium ABG Chloride 110.0 H ABG Glucose 245 H Carboxyhemoglobin Sodium Potassium Chloride BUN Creatinine Glucose POC Glucose 193 H Calcium Phosphorus Magnesium AST ALT Total Creatine Kinase CK-MB (CK-2) Troponin T Total Protein Albumin HDL Cholesterol TSH Free T3 Index Arterial Blood Glucose 245 H Arterial Blood Ionized Calcium Urine pH Urine WBC (Auto) Urine Creatinine Acetaminophen 05/01/21 05/01/21 05/01/21 07:11 07:45 11:30 WBC RBC Hgb Hct MCV RDW Plt Count Lymph % (Auto) Seg Neutrophils % Seg Neuts % (Manual) Lymphocytes % (Manual) Monocytes % (Manual) Seg Neutrophils # Seg Neutrophils # Man Lymphocytes # (Manual) Monocytes # (Manual) ABG pH POC ABG pCO2 POC ABG pO2 ABG Hemoglobin ABG Oxyhemoglobin ABG Sodium ABG Potassium ABG Chloride ABG Glucose Carboxyhemoglobin Sodium 146 H Potassium Chloride 108.4 H BUN 122 H Creatinine 3.4 H Glucose 235 H POC Glucose 212 H 247 H Calcium Phosphorus Magnesium AST ALT Total Creatine Kinase CK-MB (CK-2) Troponin T Total Protein Albumin HDL Cholesterol TSH Free T3 Index Arterial Blood Glucose Arterial Blood Ionized Calcium Urine pH Urine WBC (Auto) Urine Creatinine Acetaminophen 05/01/21 05/01/21 05/01/21 11:31 17:42 23:49 WBC RBC Hgb Hct MCV RDW Plt Count Lymph % (Auto) Seg Neutrophils % Seg Neuts % (Manual) Lymphocytes % (Manual) Monocytes % (Manual) Seg Neutrophils # Seg Neutrophils # Man Lymphocytes # (Manual) Monocytes # (Manual) ABG pH POC ABG pCO2 POC ABG pO2 ABG Hemoglobin ABG Oxyhemoglobin ABG Sodium ABG Potassium ABG Chloride ABG Glucose Carboxyhemoglobin Sodium Potassium Chloride BUN Creatinine Glucose POC Glucose 258 H 171 H 167 H Calcium Phosphorus Magnesium AST ALT Total Creatine Kinase CK-MB (CK-2) Troponin T Total Protein Albumin HDL Cholesterol TSH Free T3 Index Arterial Blood Glucose Arterial Blood Ionized Calcium Urine pH Urine WBC (Auto) Urine Creatinine Acetaminophen 05/02/21 05/02/21 05/02/21 05:12 08:34 11:53 WBC RBC Hgb Hct MCV RDW Plt Count Lymph % (Auto) Seg Neutrophils % Seg Neuts % (Manual) Lymphocytes % (Manual) Monocytes % (Manual) Seg Neutrophils # Seg Neutrophils # Man Lymphocytes # (Manual) Monocytes # (Manual) ABG pH POC ABG pCO2 POC ABG pO2 ABG Hemoglobin ABG Oxyhemoglobin ABG Sodium ABG Potassium ABG Chloride ABG Glucose Carboxyhemoglobin Sodium 148 H Potassium Chloride 110.4 H BUN 124 H Creatinine 3.4 H Glucose 208 H POC Glucose 163 H 185 H Calcium 8.3 L Phosphorus Magnesium AST ALT Total Creatine Kinase CK-MB (CK-2) Troponin T Total Protein Albumin HDL Cholesterol TSH Free T3 Index Arterial Blood Glucose Arterial Blood Ionized Calcium Urine pH Urine WBC (Auto) Urine Creatinine Acetaminophen 05/02/21 05/02/21 05/03/21 17:28 23:32 03:57 WBC RBC Hgb Hct MCV RDW Plt Count Lymph % (Auto) Seg Neutrophils % Seg Neuts % (Manual) Lymphocytes % (Manual) Monocytes % (Manual) Seg Neutrophils # Seg Neutrophils # Man Lymphocytes # (Manual) Monocytes # (Manual) ABG pH 7.531 H POC ABG pCO2 31.0 L POC ABG pO2 64.3 L ABG Hemoglobin 9.0 L ABG Oxyhemoglobin 92.6 L ABG Sodium 145.7 H ABG Potassium ABG Chloride 112.0 H ABG Glucose 202 H Carboxyhemoglobin Sodium Potassium Chloride BUN Creatinine Glucose POC Glucose 147 H 202 H Calcium Phosphorus Magnesium AST ALT Total Creatine Kinase CK-MB (CK-2) Troponin T Total Protein Albumin HDL Cholesterol TSH Free T3 Index Arterial Blood Glucose 202 H Arterial Blood Ionized Calcium Urine pH Urine WBC (Auto) Urine Creatinine Acetaminophen 05/03/21 05/03/21 05/03/21 05:14 05:44 11:10 WBC RBC Hgb Hct MCV RDW Plt Count Lymph % (Auto) Seg Neutrophils % Seg Neuts % (Manual) Lymphocytes % (Manual) Monocytes % (Manual) Seg Neutrophils # Seg Neutrophils # Man Lymphocytes # (Manual) Monocytes # (Manual) ABG pH POC ABG pCO2 POC ABG pO2 ABG Hemoglobin ABG Oxyhemoglobin ABG Sodium ABG Potassium ABG Chloride ABG Glucose Carboxyhemoglobin Sodium 147 H Potassium Chloride 109.7 H BUN 121 H Creatinine 3.1 H Glucose 190 H POC Glucose 175 H 202 H Calcium Phosphorus Magnesium AST ALT Total Creatine Kinase CK-MB (CK-2) Troponin T Total Protein Albumin HDL Cholesterol TSH Free T3 Index Arterial Blood Glucose Arterial Blood Ionized Calcium Urine pH Urine WBC (Auto) Urine Creatinine Acetaminophen 05/03/21 05/04/21 05/04/21 23:58 04:57 04:57 WBC RBC 2.61 L Hgb 8.2 L Hct 25.4 L MCV 98 H RDW 15.3 H Plt Count Lymph % (Auto) Seg Neutrophils % Seg Neuts % (Manual) Lymphocytes % (Manual) Monocytes % (Manual) Seg Neutrophils # Seg Neutrophils # Man Lymphocytes # (Manual) Monocytes # (Manual) ABG pH POC ABG pCO2 POC ABG pO2 ABG Hemoglobin ABG Oxyhemoglobin ABG Sodium ABG Potassium ABG Chloride ABG Glucose Carboxyhemoglobin Sodium 147 H Potassium Chloride 111.0 H BUN 104 H Creatinine 2.8 H Glucose 179 H POC Glucose 131 H Calcium Phosphorus Magnesium AST ALT Total Creatine Kinase CK-MB (CK-2) Troponin T Total Protein Albumin HDL Cholesterol TSH Free T3 Index Arterial Blood Glucose Arterial Blood Ionized Calcium Urine pH Urine WBC (Auto) Urine Creatinine Acetaminophen 05/04/21 05/04/21 05/04/21 05:19 11:28 17:02 WBC RBC Hgb Hct MCV RDW Plt Count Lymph % (Auto) Seg Neutrophils % Seg Neuts % (Manual) Lymphocytes % (Manual) Monocytes % (Manual) Seg Neutrophils # Seg Neutrophils # Man Lymphocytes # (Manual) Monocytes # (Manual) ABG pH POC ABG pCO2 POC ABG pO2 ABG Hemoglobin ABG Oxyhemoglobin ABG Sodium ABG Potassium ABG Chloride ABG Glucose Carboxyhemoglobin Sodium Potassium Chloride BUN Creatinine Glucose POC Glucose 168 H 206 H 213 H Calcium Phosphorus Magnesium AST ALT Total Creatine Kinase CK-MB (CK-2) Troponin T Total Protein Albumin HDL Cholesterol TSH Free T3 Index Arterial Blood Glucose Arterial Blood Ionized Calcium Urine pH Urine WBC (Auto) Urine Creatinine Acetaminophen 05/04/21 05/05/21 05/05/21 23:13 04:55 05:15 WBC RBC Hgb Hct MCV RDW Plt Count Lymph % (Auto) Seg Neutrophils % Seg Neuts % (Manual) Lymphocytes % (Manual) Monocytes % (Manual) Seg Neutrophils # Seg Neutrophils # Man Lymphocytes # (Manual) Monocytes # (Manual) ABG pH POC ABG pCO2 POC ABG pO2 ABG Hemoglobin ABG Oxyhemoglobin ABG Sodium ABG Potassium ABG Chloride ABG Glucose Carboxyhemoglobin Sodium Potassium Chloride BUN 91 H Creatinine 2.4 H Glucose 255 H POC Glucose 232 H 235 H Calcium Phosphorus Magnesium AST ALT Total Creatine Kinase CK-MB (CK-2) Troponin T Total Protein Albumin HDL Cholesterol TSH Free T3 Index Arterial Blood Glucose Arterial Blood Ionized Calcium Urine pH Urine WBC (Auto) Urine Creatinine Acetaminophen 05/05/21 05/05/21 05/05/21 11:41 17:46 23:40 WBC RBC Hgb Hct MCV RDW Plt Count Lymph % (Auto) Seg Neutrophils % Seg Neuts % (Manual) Lymphocytes % (Manual) Monocytes % (Manual) Seg Neutrophils # Seg Neutrophils # Man Lymphocytes # (Manual) Monocytes # (Manual) ABG pH POC ABG pCO2 POC ABG pO2 ABG Hemoglobin ABG Oxyhemoglobin ABG Sodium ABG Potassium ABG Chloride ABG Glucose Carboxyhemoglobin Sodium Potassium Chloride BUN Creatinine Glucose POC Glucose 199 H 231 H 224 H Calcium Phosphorus Magnesium AST ALT Total Creatine Kinase CK-MB (CK-2) Troponin T Total Protein Albumin HDL Cholesterol TSH Free T3 Index Arterial Blood Glucose Arterial Blood Ionized Calcium Urine pH Urine WBC (Auto) Urine Creatinine Acetaminophen 05/06/21 05/06/21 05/06/21 04:00 05:37 07:12 WBC RBC Hgb Hct MCV RDW Plt Count Lymph % (Auto) Seg Neutrophils % Seg Neuts % (Manual) Lymphocytes % (Manual) Monocytes % (Manual) Seg Neutrophils # Seg Neutrophils # Man Lymphocytes # (Manual) Monocytes # (Manual) ABG pH 7.464 H POC ABG pCO2 POC ABG pO2 74.2 L ABG Hemoglobin 10.5 L ABG Oxyhemoglobin ABG Sodium ABG Potassium ABG Chloride 110.0 H ABG Glucose 214 H Carboxyhemoglobin 0.4 L Sodium 146 H Potassium Chloride 110.4 H BUN 82 H Creatinine 2.3 H Glucose 154 H POC Glucose 165 H Calcium Phosphorus Magnesium AST ALT Total Creatine Kinase CK-MB (CK-2) Troponin T Total Protein Albumin HDL Cholesterol TSH Free T3 Index Arterial Blood Glucose 214 H Arterial Blood Ionized Calcium Urine pH Urine WBC (Auto) Urine Creatinine Acetaminophen 05/06/21 05/06/21 05/07/21 17:11 23:40 05:26 WBC RBC Hgb Hct MCV RDW Plt Count Lymph % (Auto) Seg Neutrophils % Seg Neuts % (Manual) Lymphocytes % (Manual) Monocytes % (Manual) Seg Neutrophils # Seg Neutrophils # Man Lymphocytes # (Manual) Monocytes # (Manual) ABG pH POC ABG pCO2 POC ABG pO2 ABG Hemoglobin ABG Oxyhemoglobin ABG Sodium ABG Potassium ABG Chloride ABG Glucose Carboxyhemoglobin Sodium Potassium Chloride BUN Creatinine Glucose POC Glucose 126 H 165 H 156 H Calcium Phosphorus Magnesium AST ALT Total Creatine Kinase CK-MB (CK-2) Troponin T Total Protein Albumin HDL Cholesterol TSH Free T3 Index Arterial Blood Glucose Arterial Blood Ionized Calcium Urine pH Urine WBC (Auto) Urine Creatinine Acetaminophen 05/07/21 05/07/21 05/07/21 08:20 08:20 11:35 WBC RBC 2.58 L Hgb 7.9 L Hct 24.9 L MCV RDW Plt Count Lymph % (Auto) Seg Neutrophils % Seg Neuts % (Manual) Lymphocytes % (Manual) Monocytes % (Manual) Seg Neutrophils # Seg Neutrophils # Man Lymphocytes # (Manual) Monocytes # (Manual) ABG pH POC ABG pCO2 POC ABG pO2 ABG Hemoglobin ABG Oxyhemoglobin ABG Sodium ABG Potassium ABG Chloride ABG Glucose Carboxyhemoglobin Sodium Potassium Chloride 108.4 H BUN 81 H Creatinine 2.4 H Glucose 133 H POC Glucose 112 H Calcium Phosphorus Magnesium AST ALT Total Creatine Kinase CK-MB (CK-2) Troponin T Total Protein Albumin HDL Cholesterol TSH Free T3 Index Arterial Blood Glucose Arterial Blood Ionized Calcium Urine pH Urine WBC (Auto) Urine Creatinine Acetaminophen 05/07/21 05/07/21 05/08/21 17:51 23:27 03:05 WBC RBC Hgb Hct MCV RDW Plt Count Lymph % (Auto) Seg Neutrophils % Seg Neuts % (Manual) Lymphocytes % (Manual) Monocytes % (Manual) Seg Neutrophils # Seg Neutrophils # Man Lymphocytes # (Manual) Monocytes # (Manual) ABG pH 7.454 H POC ABG pCO2 POC ABG pO2 82.1 L ABG Hemoglobin 8.1 L ABG Oxyhemoglobin ABG Sodium ABG Potassium 4.8 H ABG Chloride 111.0 H ABG Glucose 194 H Carboxyhemoglobin Sodium Potassium Chloride BUN Creatinine Glucose POC Glucose 136 H 133 H Calcium Phosphorus Magnesium AST ALT Total Creatine Kinase CK-MB (CK-2) Troponin T Total Protein Albumin HDL Cholesterol TSH Free T3 Index Arterial Blood Glucose 194 H Arterial Blood Ionized Calcium Urine pH Urine WBC (Auto) Urine Creatinine Acetaminophen 05/08/21 05/08/21 05/08/21 05:52 07:07 07:07 WBC 12.0 H RBC 2.94 L Hgb 9.0 L Hct 28.5 L MCV RDW Plt Count Lymph % (Auto) Seg Neutrophils % Seg Neuts % (Manual) Lymphocytes % (Manual) Monocytes % (Manual) Seg Neutrophils # Seg Neutrophils # Man Lymphocytes # (Manual) Monocytes # (Manual) ABG pH POC ABG pCO2 POC ABG pO2 ABG Hemoglobin ABG Oxyhemoglobin ABG Sodium ABG Potassium ABG Chloride ABG Glucose Carboxyhemoglobin Sodium Potassium Chloride BUN 73 H Creatinine 2.2 H Glucose 211 H POC Glucose 194 H Calcium Phosphorus Magnesium AST ALT Total Creatine Kinase CK-MB (CK-2) Troponin T Total Protein Albumin HDL Cholesterol TSH Free T3 Index Arterial Blood Glucose Arterial Blood Ionized Calcium Urine pH Urine WBC (Auto) Urine Creatinine Acetaminophen 06/07/2105/08/21 05/08/21 11:19 17:20 23:22 WBC RBC Hgb Hct MCV RDW Plt Count Lymph % (Auto) Seg Neutrophils % Seg Neuts % (Manual) Lymphocytes % (Manual) Monocytes % (Manual) Seg Neutrophils # Seg Neutrophils # Man Lymphocytes # (Manual) Monocytes # (Manual) ABG pH POC ABG pCO2 POC ABG pO2 ABG Hemoglobin ABG Oxyhemoglobin ABG Sodium ABG Potassium ABG Chloride ABG Glucose Carboxyhemoglobin Sodium Potassium Chloride BUN Creatinine Glucose POC Glucose 231 H 251 H 295 H Calcium Phosphorus Magnesium AST ALT Total Creatine Kinase CK-MB (CK-2) Troponin T Total Protein Albumin HDL Cholesterol TSH Free T3 Index Arterial Blood Glucose Arterial Blood Ionized Calcium Urine pH Urine WBC (Auto) Urine Creatinine Acetaminophen 05/09/21 05/09/21 05/09/21 05:39 07:36 11:39 WBC RBC Hgb Hct MCV RDW Plt Count Lymph % (Auto) Seg Neutrophils % Seg Neuts % (Manual) Lymphocytes % (Manual) Monocytes % (Manual) Seg Neutrophils # Seg Neutrophils # Man Lymphocytes # (Manual) Monocytes # (Manual) ABG pH POC ABG pCO2 POC ABG pO2 ABG Hemoglobin ABG Oxyhemoglobin ABG Sodium ABG Potassium ABG Chloride ABG Glucose Carboxyhemoglobin Sodium Potassium Chloride BUN 64 H Creatinine 2.2 H Glucose 308 H POC Glucose 240 H 330 H Calcium Phosphorus Magnesium AST ALT Total Creatine Kinase CK-MB (CK-2) Troponin T Total Protein Albumin HDL Cholesterol TSH Free T3 Index Arterial Blood Glucose Arterial Blood Ionized Calcium Urine pH Urine WBC (Auto) Urine Creatinine Acetaminophen 05/09/21 05/09/21 05/10/21 17:37 23:15 05:15 WBC RBC Hgb Hct MCV RDW Plt Count Lymph % (Auto) Seg Neutrophils % Seg Neuts % (Manual) Lymphocytes % (Manual) Monocytes % (Manual) Seg Neutrophils # Seg Neutrophils # Man Lymphocytes # (Manual) Monocytes # (Manual) ABG pH POC ABG pCO2 POC ABG pO2 ABG Hemoglobin ABG Oxyhemoglobin ABG Sodium ABG Potassium ABG Chloride ABG Glucose Carboxyhemoglobin Sodium Potassium Chloride BUN Creatinine Glucose POC Glucose 174 H 152 H 146 H Calcium Phosphorus Magnesium AST ALT Total Creatine Kinase CK-MB (CK-2) Troponin T Total Protein Albumin HDL Cholesterol TSH Free T3 Index Arterial Blood Glucose Arterial Blood Ionized Calcium Urine pH Urine WBC (Auto) Urine Creatinine Acetaminophen 05/10/21 05/10/21 05/10/21 05:36 11:29 17:35 WBC RBC Hgb Hct MCV RDW Plt Count Lymph % (Auto) Seg Neutrophils % Seg Neuts % (Manual) Lymphocytes % (Manual) Monocytes % (Manual) Seg Neutrophils # Seg Neutrophils # Man Lymphocytes # (Manual) Monocytes # (Manual) ABG pH POC ABG pCO2 POC ABG pO2 ABG Hemoglobin ABG Oxyhemoglobin ABG Sodium ABG Potassium ABG Chloride ABG Glucose Carboxyhemoglobin Sodium Potassium Chloride 110.7 H BUN 54 H Creatinine 2.2 H Glucose 164 H POC Glucose 202 H 109 H Calcium Phosphorus Magnesium AST ALT Total Creatine Kinase CK-MB (CK-2) Troponin T Total Protein Albumin HDL Cholesterol TSH Free T3 Index Arterial Blood Glucose Arterial Blood Ionized Calcium Urine pH Urine WBC (Auto) Urine Creatinine Acetaminophen 05/11/21 05/11/21 05/11/21 05:38 07:10 11:54 WBC RBC Hgb Hct MCV RDW Plt Count Lymph % (Auto) Seg Neutrophils % Seg Neuts % (Manual) Lymphocytes % (Manual) Monocytes % (Manual) Seg Neutrophils # Seg Neutrophils # Man Lymphocytes # (Manual) Monocytes # (Manual) ABG pH POC ABG pCO2 POC ABG pO2 ABG Hemoglobin ABG Oxyhemoglobin ABG Sodium ABG Potassium ABG Chloride ABG Glucose Carboxyhemoglobin Sodium Potassium 5.2 H Chloride 108.8 H BUN 50 H Creatinine 2.2 H Glucose 176 H POC Glucose 135 H 219 H Calcium Phosphorus Magnesium AST ALT Total Creatine Kinase CK-MB (CK-2) Troponin T Total Protein Albumin HDL Cholesterol TSH Free T3 Index Arterial Blood Glucose Arterial Blood Ionized Calcium Urine pH Urine WBC (Auto) Urine Creatinine Acetaminophen Allied health notes reviewed: nursing
--- NOTE | 2021-05-11 16:18 | Progress Note ---
Assessment and Plan This is a 80-year-old female with HTN, DM, [place], breast CA s/p double mastectomy, TIA who presented with hypoglycemia, AMS who was admitted with SIRS, symptomatic bradycardia, acute metabolic encephalopathy, acute hypoxic respiratory failure, elevated TSH, hyperglycemia, hyponatremia, hypokalemia, ROJELIO and rhabdomyolysis Acute metabolic encephalopathy-persist Acute hypoxic respiratory failure (extubated 04/20)- Re-intubated secondary to S tridor and paradoxical breathing - s/p trach and PEG First-degree heart block Resolved ileus versus mechanical obstruction Acute kidney injury with vasomotor nephropathy UTI, Pseudomonas/ Earline Elevated TSH Mild rhabdomyolysis Hypertension Diabetes mellitus with hyperglycemia on admission CAD Hypothyroidism Chronic illness debilitymyopathy Obesity -CCM, nephrology, neurology, cardiology consulted, patient recommendations -S/p D10 and D5W gtt, on TF -S/p IV calcium gluconate, regular insulin, D50 -S/p transcutaneous pacing, intermittent demand pacer in place -Renal ultrasound findings consistent with acute on chronic kidney disease, mildly complex right renal cyst -Blood pressure monitoring per protocol -Accu-Cheks every 6, SSI, long acting insulin -IV hydralazine as needed -04/25 EEG is mildly abnormal with mild slowing noted throughout the recording, suggestive of mild cortical dysfunction and/or drug effect -04/20 EEG shows mildly abnormal record due to diffuse background slowing noted throughout the recording, intermittent motion artifact, patient intubated and sedated at time of study, no sign of seizures as well epilepticus noted, possible toxic metabolic encephalopathy, drug effect, possible postictal state cannot be totally excluded. -Avoid ACEi/ARB in setting of ROJELIO -Avoid AV arron blocking agents -Avoid nephrotoxic agents and renally dose medications -BB, add home antihtn regimen as needed -TSH 14.1, T4 4.1, T3 1.1-started on levothyroxine -As needed racemic epinephrine -S/p steroids -s/p Antibiotic therapy -Trend CBC, BMP DVT/GI prophylaxis: Heparin subcu, PPI, SCDs to bilateral lower extremities while in bed Disposition: ICU The high probability of a clinically significant, sudden or life threatening deterioration of the [PULMONARY, CARDIAC, RENAL] system(s) required my full and direct attention, intervention and personal management. The aggregate critical care time was [35] minutes. This time is in addition to time spent performing reported procedures but includes the following: [X] Data Review and interpretation [X] Patient assessment and monitoring of vital signs [X] Documentation [X] Medication orders and management Brief history This is a 80-year-old female with hypertension, diabetes mellitus, [place], breast cancer s/p double mastectomy, and a TIA who presented with hypoglycemia and altered mental status on 04/15 via EMS. Per EMS patient was unresponsive on their arrival and her blood glucose was 38 and she received 1 amp of dextrose patient continued to be unresponsive and only moaned with her eyes deviating to the left. Work-up in the emergency department revealed SIRS, symptomatic bradycardia, acute metabolic encephalopathy, acute hypoxic respiratory failure, elevated TSH, hyperglycemia, hyponatremia, hyperkalemia, acute kidney injury with ATN, and rhabdomyolysis Daily clinical course; 04/16: Neurology consulted, COVID-19 PCR negative, D10 drip decreased and alicia ntually discontinued by [facility] and started on D5W for 1 L. Hydralazine as needed. Patient had hyper kalemia today and was treated with D50, insulin and Kayexalate. This time examination patient is on assist control tidal volume 450, rate of 16, PEEP of 6 and 25% FiO2. 04/17: Patient started on low-dose beta-angel per cardiology, CPAP trial again per [facility], BUN/creatinine holding steady and hypochloremia/hyponatremia slightly improved and hypokalemia has resolved. This morning a KUB was obtained which was concerning for ileus versus mechanical obstruction and surgery was consulted. Patient was made n.p.o. and NG tube placed to wall suction. Patient was given suppository. Per RN patient did not have a BM even though she was given Kayexalate yesterday. Will obtain a KUB in the a.m. Neurology was consulted yesterday and will await further recommendations. Nephew updated at bedside today, Carlos Romero. 04/18: Neurology has ordered EEG/MRI B, [facility] continues to wean MV. Persistent low grade temperature so we will obtain BCx2/UA. Patient has improving leukocytosis, hyponatremia, renal function studies and hypochloremia. She has hypokalemia today which is being repleted. Surgery has signed off today and has okayed resumption of TF. [facility] will trial CPAP for longer today and plans to attempt extubation in AM. Family has requested transfer to [place] and Dr. Gordon will attempt to contact transfer center. I updated her nephew, Carlos Romero over the phone today abouyt current events and update on transfer ([facility] will conduct a utilization review) 04/19: This morning patient is on CPAP trial at the time of examination, noted to be hypertensive and metoprolol increased to home dose, started on synthroid by CCM, lantus started re hyperglycemia, MRI completed with no acute findings. Severe hypokalemia (repleted and Mg pending). CCM will contact CPAP trial again today with possible trial extubation tomorrow. 04/20: Patient's leukocytosis and kidney function tests continue to improve. Patient is hypertensive overnight we will restart home hydralazine. [facility] plans to extubate patient today. Family is attempting to transfer to another facility. EEG pending, RT will atmept to contact vet tech. Urine culture grew gram negative rods. Increase in lantus 04/21: Increase in Lantus, repleted phos. Patient has started this afternoon and was given racemic epinephrine and started on steroids. Patient will have BiPAP as needed. We will recheck BMP in the a.m. renal function studies continues to decrease. Patient has been hypertensive on evaluation regimen has been changed . 04/22: Lantus increased for hyperglycemia and add amlodipine for better BP control. Patient is on steroids. OT suctioned by RN with catheter in oral care kit and received copious amounts of secretions. Cr continues to decrease. Culture grew Pseudomonas and was changed in accordance to sensitivity. Kerr removed today after clearance from nephrology. 04/23: MRI of the brain was done and unremarkable. Will obtain reconsult to nephrology for further assistance as patient remains in profound encephalopathy despite improvement of blood sugar. Will repeat chest x-ray as patient does have significant congestion physical exam. Tube feeds still ongoing. Continue aspiration precautions. Continue antibiotics when completed for Pseudomonas management 04/24: Neurology input noted, patient unfortunately with no improvement mental status [place], continues with congestion, will defer with Glass Unloading Equipment Tender for lasix in the setting of renal failure. will give kayexlate for hyperkalemia, still moans and groans, mittens in place. 04/25: Patient currently intubated, on restraints for safety, Profund encephalopathy persist, although awake she is not following any commands, Call placed to [facility] to see if they will accept transfer for ENT evaluation, while CT neck was negative, it was degraded by motion and unable to determent why patient had this stridor, Racemic Epinephrine was given, [place] is on ICU saturation, but will call back with an ENT to discuss case. Renal function mildly worse, continue to monitor. Per cardiology, no further arrhythmias noted since admission. Given short duration of atrial fibrillation, along with pt's age, renal fxn, and other co- morbidities,...will resume additional medical therapies for underlying severe multi-vessel CAD (bASA & Plavix). Pt has previously declined intervention of known lesions as per her Primary Manager Terminal. 04/26: Now with febrile illness, ?developing infection, start on empiric abx, check lactate level, blood cultures, continue management per [employer] Scouring Vat Tender, Monitor leukocytosis, agree with Trach, family updated about denials in transfer request from outside hospitals. 04/27: WBC improving some, still with fever despite antibotics, ID consulted. CXR clear, continue current management, Trach will be planned if ok with family. Bl ood sugar remains elevated, will adjust insulin LANTUS to 40 units. Patient had previously completed Cefepime. Mental status remains unchanged, still moves upper ext. continue restraints 04/28: Continue supportive care. No new fever noted. Critical care physician will determine if patient should be have a trial of extubation again or if we should proceed straight to trach. Again continue to monitor mental status for complete improvement. 04/29: Per [employer] Sc[employer] Tender discussion with family, will proceed to Tracheostomy, Patients mental status still fluctuating, Continue current management. Surgeon consulted. 04/30: General surgery consulted for trach, continue to trend CBC and BMP. Kidney function slightly worsened today. Increase in Lantus. Tmax 100.2, per ID will consider imaging if leukocytosis remains elevated with fevers. Plavix held for possible tracheostomy next week. 05/01: Patient fever curve is trending down with improving leukocytosis. Patient renal function worsened today. She remains hyperglycemic and her Lantus was increased to her home dose of Novolin 70/30. Patient was rate controlled yesterday due to T-max of 101. She remains on CMV tidal volume 450, rate of 10, PEEP of 6 and 30% FiO2. We will increase the water flushes given slight hypernatremia. Dr. Andrea updated nephew (Carlos) at bedside. CPAP trails. 05/02: Patient's hypernatremia and hyperchloremia slightly worsened and femur fractures were increased. Kidney functions remain the same however BUN is in the 100s. Nephrology is following. Kerr catheter was removed. Awaiting trach placement with possibility on Friday. 05/03: Patient grew Earline in her urine culture however per ID and the Kerr was already exchanged. Patient is on cefepime and Flagyl. Plavix still on hold awaiting trach. CCM started the patient on half-normal saline at 75 mL/h for 2 L related to azatoma and hypernatremia. Patient mental status continues to wax and wane. Creatinine is 3.1 today from 3.4 yesterday. Patient had a bowel movement today. Patient remains hyperglycemic and Lantus was changed from a.m. to p.m.. 05/04: Patient's renal function is improving, surgery obtain consent for trach/PEG scheduled for 05/07, antibiotics to end tomorrow. We will obtain BMP in the a.m. Lantus dosage change from AC to at bedtime in hopes of better glycemic control. 05/05: Patient Lantus dose is changed to twice daily in hopes of better glycemic control. Awaiting surgical procedure hopefully on Friday. Patient's BUN/creatinine improved and hypernatremia has resolved. 05/06: Patient has slight hypernatremia and hyperchloremia and improvement to BUN/creatinine. Better glycemic control. Awaiting trach on Friday. NGT was displaced but now replaced and TF resumed. 05/07 This is a 80-year-old female with HTN, DM, [place], breast CA s/p double mastectomy, TIA who presented with hypoglycemia, AMS who was admitted with SIRS, symptomatic bradycardia, acute metabolic encephalopathy, acute hypoxic respiratory failure, elevated TSH, hyperglycemia, hyponatremia, hypokalemia, ROJELIO and rhabdomyolysis. She is for Trach and PEG today. 05/08: s/p trach and PEG placement yesterday. cont to monitor, wean off from vent as tolertaed 05/09: Patient started on tube feeding and tolerating well. Currently on CPAP setting with newly placed trach. Discussed with case management and patient would need placement. Continue supportive care and follow clinically. 05/10: Continue supportive care, patient is tolerating tube feeding diet. Remains on CPAP with trach. Pending LTAC placement. 05/11: Continue supportive care, patient is tolerating tube feeding diet. Remains on CPAP with trach. Plan to wean off from Vent as tolerates and to place on t-piece. Subjective Date of service: 05/11/21 Principal diagnosis: Ac. resp failure; AMS; Hypoglycemia; ROJELIO; Hyperkalemia; DM II Interval history: Patient seen and examined. Medical records and medication list reviewed. No acute event overnight noted by the RN. Patient remains on trach tube, started on tube feeding - tolerating well Discussed plan of care at bedside with patient's RN. Objective - Exam Narrative Exam: General appearance: Present: no acute distress, intubated on mechanical ventilation - EENT Eyes: Present: PERRL, EOM intact - Neck Neck: Present: normal ROM, trach in place - Respiratory Respiratory effort: normal Respiratory: bilateral: diminished - Cardiovascular Rhythm: regular Heart Sounds: Present: S1 & S2. Absent: systolic murmur, diastolic murmur - Extremities Extremities: no ischemia, pulses intact, pulses symmetrical, normal temperature, normal color Peripheral Pulses: within normal limits - Abdominal General gastrointestinal: soft, non-tender, non-distended, normal bowel sounds - Integumentary Integumentary: Present: warm, dry - Psychiatric Psychiatric: cooperative - Neurologic Neurologic: moves all extremities - Constitutional Vitals: Vital Signs - 12hr 05/11/21 05/11/21 05/11/21 05:00 05:05 05:14 Temperature Pulse Rate 79 79 86 Pulse Rate [ Anterior Bilateral Throughout] Pulse Rate [ From Monitor] Respiratory 15 18 Rate Respiratory Rate [Anterior Bilateral Throughout] Blood Pressure 138/52 138/52 O2 Sat by Pulse 100 100 Oximetry O2 Sat by Pulse Oximetry [ Assessment] 05/11/21 05/11/21 05/11/21 06:00 06:42 07:00 Temperature Pulse Rate 80 83 85 Pulse Rate [ Anterior Bilateral Throughout] Pulse Rate [ From Monitor] Respiratory 21 15 Rate Respiratory Rate [Anterior Bilateral Throughout] Blood Pressure 144/56 144/56 O2 Sat by Pulse 100 100 Oximetry O2 Sat by Pulse Oximetry [ Assessment] 05/11/21 05/11/21 05/11/21 07:26 08:00 08:09 Temperature 99.6 F Pulse Rate 83 83 Pulse Rate [ 86 Anterior Bilateral Throughout] Pulse Rate [ 77 From Monitor] Respiratory 18 25 H Rate Respiratory 21 Rate [Anterior Bilateral Throughout] Blood Pressure 140/55 140/55 O2 Sat by Pulse 100 100 Oximetry O2 Sat by Pulse 100 Oximetry [ Assessment] 05/11/21 05/11/21 05/11/21 09:00 09:52 10:00 Temperature Pulse Rate 84 90 83 Pulse Rate [ Anterior Bilateral Throughout] Pulse Rate [ From Monitor] Respiratory 29 H 22 Rate Respiratory Rate [Anterior Bilateral Throughout] Blood Pressure 149/54 149/54 146/50 O2 Sat by Pulse 100 100 Oximetry O2 Sat by Pulse Oximetry [ Assessment] 05/11/21 05/11/21 05/11/21 11:00 11:15 12:00 Temperature Pulse Rate 76 80 80 Pulse Rate [ Anterior Bilateral Throughout] Pulse Rate [ 73 From Monitor] Respiratory 23 33 H 30 H Rate Respiratory Rate [Anterior Bilateral Throughout] Blood Pressure 146/50 170/47 147/52 O2 Sat by Pulse 100 100 100 Oximetry O2 Sat by Pulse Oximetry [ Assessment] 05/11/21 05/11/21 05/11/21 12:05 13:00 14:00 Temperature 99.4 F Pulse Rate 80 83 Pulse Rate [ Anterior Bilateral Throughout] Pulse Rate [ From Monitor] Respiratory 30 H 31 H Rate Respiratory Rate [Anterior Bilateral Throughout] Blood Pressure 153/54 151/60 O2 Sat by Pulse 100 100 Oximetry O2 Sat by Pulse Oximetry [ Assessment] 05/11/21 05/11/21 15:32 15:34 Temperature Pulse Rate 81 Pulse Rate [ Anterior Bilateral Throughout] Pulse Rate [ From Monitor] Respiratory 30 H Rate Respiratory Rate [Anterior Bilateral Throughout] Blood Pressure 156/65 O2 Sat by Pulse 100 Oximetry O2 Sat by Pulse 100 Oximetry [ Assessment] - Labs CBC & Chem 7: 05/08/21 07:07 05/12/21 04:51 Labs: Abnormal lab results 05/10/21 05/11/21 05/11/21 Range/Units 17:35 05:38 07:10 Potassium 5.2 H (3.6-5.0) mmol/L Chloride 108.8 H (98-107) mmol/L BUN 50 H (7-17) mg/dL Creatinine 2.2 H (0.6-1.2) mg/dL Glucose 176 H (65-100) mg/dL POC Glucose 109 H 135 H (70-105) mg/dL 05/11/21 Range/Units 11:54 Potassium (3.6-5.0) mmol/L Chloride (98-107) mmol/L BUN (7-17) mg/dL Creatinine (0.6-1.2) mg/dL Glucose (65-100) mg/dL POC Glucose 219 H (70-105) mg/dL HEART Score - HEART Score Troponin: Troponin T 0.065 ng/mL (0.00-0.029) H 04/20/21 03:32
[2021-05-11] MEDS: LATANOPROST 0.005% OPHTH SOLN 2.5 ML OU SCH (17:54)
[2021-05-11] MEDS: PRAVASTATIN 20 MG TAB PO SCH (21:50)
[2021-05-12] MEDS: INSULIN LISPRO 100 UNIT/ML SUB-Q SCH ×4 (00:07→18:02)
[2021-05-12 05:52] LABS: Calcium 9.4 mg/dL (8.4-10.2)
[2021-05-12] MEDS: LEVOTHYROXINE 25 MCG TAB PO SCH (06:01)
[2021-05-12] MEDS: hydrALAZINE 25 MG TAB PO SCH ×2 (06:02→14:29)
[2021-05-12] MEDS: ACETYLCYSTEINE 20% 200 MG/1 ML *FOR INHALATION USE INHALATION SCH ×3 (07:52→15:29)
[2021-05-12] MEDS: ALBUTEROL 2.5 MG/3 ML NEBU IH PRN ×2 (08:14→15:29)
[2021-05-12] MEDS: INSULIN NPH/REGULAR 70/30 INJ SUB-Q SCH ×2 (09:13→18:01)
[2021-05-12] MEDS: TAMSULOSIN 0.4 MG CAP PO SCH (09:20)
[2021-05-12] MEDS: FAMOTIDINE 20 MG TAB PO SCH (09:20)
[2021-05-12] MEDS: DOCUSATE SODIUM 100 MG/10 ML ORAL LIQD PO SCH ×2 (09:20→21:42)
[2021-05-12] MEDS: ASPIRIN 81 MG TAB CHEW PO SCH (09:20)
[2021-05-12] MEDS: METOPROLOL TARTRATE 25 MG TAB PO SCH ×2 (09:21→21:42)
[2021-05-12] MEDS: amLODIPine 10 MG TAB PO SCH (09:21)
[2021-05-12] MEDS: TIMOLOL 0.5% OPHTH SOLN 5 ML OU SCH (09:22)
[2021-05-12] MEDS: BRIMONIDINE 0.15% OPHTH SOLN OU SCH ×2 (09:23→21:41)
[2021-05-12] MEDS: HEPARIN 5,000 UNIT/1 ML VIAL SUB-Q SCH ×2 (09:24→21:42)
--- NOTE | 2021-05-12 10:06 | Progress Note ---
Assessment and Plan 1. Acute kidney injury: Vasomotor ROJELIO. ATN likely. Renal US negative for hydro. Baseline renal function is unknown. Monitor renal function. Non-oliguric. On 12/02 NS. BUN level continue to improve. Creatinine leveled off. Renal prognosis is guarded. Avoid nephrotoxic agents. Meds dosage based on GFR. 2. FEN: Hypokalemia, improved, monitor. Hypernatremia, improved, monitor. Monitor lytes and volume status. 3. Acute hypoxemic respiratory failure: Extubated, re-intubated 04/24. Trached 05/07. 4. Acute encephalopathy: MRI brain negative. Seen by Neuro. 5. UTI: Pseudomonas and Earline. 6. Hypertension. 7. DM type 2. 8. Mild rhabdomyolysis. 9. Mildly complex R renal cyst. Subjective: Patient was seen and examined at the bedside. Examination: General appearance: well-developed, appears stated age, trached on vent HEENT: atraumatic Neck: trached Respiratory: Coarse breath sounds heard Heart: S1S2, no murmur Abdomen: soft, obese, bowel sounds heard, NT, PEG tube noted Integumentary: no obvious rash Neurologic: stuporous Ext: no edema noted : Kerr catheter Subjective Date of service: 05/12/21 Principal diagnosis: Ac. resp failure; AMS; Hypoglycemia; ROJELIO; Hyperkalemia; DM II Objective - Vital Signs Vital signs: Vital Signs - 12hr 05/11/21 05/11/21 05/11/21 23:00 23:04 23:08 Temperature 98.3 F Pulse Rate 77 71 Pulse Rate [ Anterior Bilateral Throughout] Pulse Rate [ From Monitor] Respiratory 21 22 Rate Respiratory Rate [Anterior Bilateral Throughout] Blood Pressure 125/48 108/40 O2 Sat by Pulse 100 100 Oximetry O2 Sat by Pulse Oximetry [ Assessment] 05/12/21 05/12/21 05/12/21 00:00 01:00 02:00 Temperature Pulse Rate 75 74 74 Pulse Rate [ Anterior Bilateral Throughout] Pulse Rate [ 75 From Monitor] Respiratory 17 16 18 Rate Respiratory Rate [Anterior Bilateral Throughout] Blood Pressure 108/40 130/54 130/54 O2 Sat by Pulse 100 100 100 Oximetry O2 Sat by Pulse 100 Oximetry [ Assessment] 05/12/21 05/12/21 05/12/21 03:00 03:23 03:36 Temperature 98.5 F Pulse Rate 75 77 Pulse Rate [ Anterior Bilateral Throughout] Pulse Rate [ From Monitor] Respiratory 22 Rate Respiratory Rate [Anterior Bilateral Throughout] Blood Pressure 141/50 141/50 O2 Sat by Pulse 100 100 Oximetry O2 Sat by Pulse Oximetry [ Assessment] 05/12/21 05/12/21 05/12/21 04:00 05:00 06:00 Temperature Pulse Rate 72 83 81 Pulse Rate [ Anterior Bilateral Throughout] Pulse Rate [ 78 From Monitor] Respiratory 16 16 21 Rate Respiratory Rate [Anterior Bilateral Throughout] Blood Pressure 132/45 133/56 133/56 O2 Sat by Pulse 100 100 100 Oximetry O2 Sat by Pulse Oximetry [ Assessment] 05/12/21 05/12/21 05/12/21 07:00 07:52 07:55 Temperature Pulse Rate 79 80 Pulse Rate [ Anterior Bilateral Throughout] Pulse Rate [ From Monitor] Respiratory 22 Rate Respiratory Rate [Anterior Bilateral Throughout] Blood Pressure 141/51 141/51 O2 Sat by Pulse 100 100 Oximetry O2 Sat by Pulse 100 Oximetry [ Assessment] 05/12/21 05/12/21 05/12/21 08:00 08:14 08:24 Temperature 98.6 F Pulse Rate 79 Pulse Rate [ 83 Anterior Bilateral Throughout] Pulse Rate [ From Monitor] Respiratory Rate Respiratory 18 Rate [Anterior Bilateral Throughout] Blood Pressure 123/48 O2 Sat by Pulse 100 Oximetry O2 Sat by Pulse Oximetry [ Assessment] 05/12/21 09:21 Temperature Pulse Rate 90 Pulse Rate [ Anterior Bilateral Throughout] Pulse Rate [ From Monitor] Respiratory Rate Respiratory Rate [Anterior Bilateral Throughout] Blood Pressure 129/48 O2 Sat by Pulse Oximetry O2 Sat by Pulse Oximetry [ Assessment] - Lab 05/08/21 07:07 05/12/21 04:51 Most recent lab results ABG pH 7.454 (7.320-7.450) H 05/08/21 03:05 ABG O2 Saturation 96.1 (0-100) 05/08/21 03:05 Calcium 9.4 mg/dL (8.4-10.2) 05/12/21 04:51 Phosphorus 2.60 mg/dL (2.5-4.5) 04/22/21 08:00 Magnesium 2.10 mg/dL (1.7-2.3) 04/23/21 07:02 Urine Creatinine 24.4 mg/dL (0.1-20.0) H 04/16/21 00:12 Urine Sodium 97 mmol/L 04/16/21 00:12 Medications & Allergies - Medications Allergies/Adverse Reactions: Allergies No Known Allergies Allergy (Unverified 04/15/21 17:41) Home Medications: Home Medications Medication Instructions Recorded Confirmed Last Taken Type Betaxolol HCl [Betoptic S 0.25% 1 drop OU BID 04/16/21 04/16/21 Unknown History SUSP] Bimatoprost [Lumigan 0.01%] 1 drop OU QPM 04/16/21 04/16/21 Unknown History Brimonidine Tartrate [Brimonidine 5 ml OU BID 04/16/21 04/16/21 Unknown History Tartrate 0.2%] Furosemide [Lasix TAB] 40 mg PO QDAY 04/16/21 04/16/21 Unknown History Gabapentin [Neurontin] 300 mg PO Q8HR 04/16/21 04/16/21 Unknown History HYDROcodone/APAP 10-325 [[place] 1 each PO Q6HR PRN 04/16/21 04/16/21 Unknown History 10/325] Hydralazine HCl 50 mg PO Q4HR 04/16/21 04/16/21 Unknown History Insulin Aspart Prot/Insuln Asp 52 units SQ HS 04/16/21 04/16/21 Unknown History [Novolog Mix 70-30 Flexpen] Metoprolol [Lopressor] 25 mg PO BID 04/16/21 04/16/21 Unknown History Pravastatin [Pravachol] 20 mg PO QHS 04/16/21 04/16/21 Unknown History Promethazine [Phenergan] 25 mg PO Q6HR 04/16/21 04/16/21 Unknown History allopurinoL [Zyloprim] 150 mg PO QDAY 04/16/21 04/16/21 Unknown History Active Medications: Generic Name Dose Route Start Last Admin Trade Name Freq PRN Reason Stop Dose Admin Acetaminophen 650 mg 04/15/21 19:11 04/30/21 20:14 Acetaminophen 325 Mg Tab PO 650 mg Q6H PRN Administration Pain MILD(1-3)/Fever >100.5/SEXTON Acetylcysteine 200 mg 05/09/21 16:00 05/12/21 08:14 Acetylcysteine 20% 200 Mg/1 Ml *For Inhalation Use* INHALATION 05/16/21 15:59 200 mg Q8HRT WOLFGANG Administration Albuterol 2.5 mg 05/09/21 13:16 05/12/21 08:14 Albuterol 2.5 Mg/3 Ml Nebu IH 2.5 mg Q6HRT PRN Administration Shortness Of Breath Amlodipine Besylate 10 mg 04/25/21 10:00 05/12/21 09:21 Amlodipine 10 Mg Tab PO 10 mg DAILY WOLFGANG Administration Lipase/Protease/Amylase 1 each 04/16/21 12:52 Lipase 10,500/Protease 25,000/Amylase 43,750 (Units) Dr Simpson FEEDTUBE PRN PRN For Clogged Feeding Tube Aspirin 81 mg 04/25/21 10:00 05/12/21 09:20 Aspirin 81 Mg Tab Chew PO 81 mg QDAY WOLFGANG Administration Bisacodyl 10 mg 04/17/21 11:01 05/03/21 09:50 Bisacodyl 10 Mg Rect Supp MA 10 mg QDAY PRN Administration Constipation Brimonidine Tartrate 1 drops 04/17/21 22:00 05/12/21 09:23 Brimonidine 0.15% Ophth Soln OU 1 drops BID WOLFGANG Administration Docusate Sodium 100 mg 04/29/21 15:00 05/12/21 09:20 Docusate Sodium 100 Mg/10 Ml Oral Liqd PO 100 mg BID WOLFGANG Administration Famotidine 20 mg 04/17/21 10:00 05/12/21 09:20 Famotidine 20 Mg Tab PO 20 mg DAILY WOLFGANG Administration Fentanyl 50 mcg 05/07/21 09:00 Fentanyl 100 Mcg/2 Ml Inj IV Q4H PRN Pain , Severe (7-10) Heparin Sodium (Porcine) 5,000 unit 04/15/21 22:00 05/12/21 09:24 Heparin 5,000 Unit/1 Ml Vial SUB-Q 5,000 unit Q12HR WOLFGANG Administration Hydralazine HCl 10 mg 04/16/21 18:00 04/24/21 05:25 Hydralazine 20 Mg/1 Ml Inj IV 10 mg Q4HR PRN Administration Hypertension Hydralazine HCl 50 mg 05/03/21 14:00 05/12/21 06:02 Hydralazine 25 Mg Tab PO Not Given Q8HR WOLFGANG Hydrophilic Ointment 1 applic 04/15/21 17:24 Lip Therapy Vaseline TP Q2HR PRN Dry Lips Insulin Human Isoph/Insulin Regular 25 unit 05/09/21 08:00 05/12/21 09:13 Insulin Nph/Regular 70/30 Inj SUB-Q 25 unit BIDDIAB WOLFGANG Administration Insulin Human Lispro 0 unit 04/16/21 15:00 05/12/21 06:00 Insulin Lispro 100 Unit/Ml SUB-Q 3 unit Q6HR WOLFGANG Administration Protocol Latanoprost 1 drops 04/17/21 18:00 05/11/21 17:54 Latanoprost 0.005% Ophth Soln 2.5 Ml OU 1 drops QPM WOLFGANG Administration Levothyroxine Sodium 25 mcg 04/19/21 06:00 05/12/21 06:01 Levothyroxine 25 Mcg Tab PO 25 mcg DAILY@0600 WOLFGANG Administration Metoprolol Tartrate 25 mg 04/19/21 10:00 05/12/21 09:21 Metoprolol Tartrate 25 Mg Tab PO 25 mg BID WOLFGANG Administration Multi-Ingred Cream/Lotion/Oil/Oint 1 applic 04/15/21 17:24 05/04/21 09:25 Mineral Oil/Petrolatum, White Ophth Oint 3.5 Gm OU 1 applic Q4HR PRN Administration Dry Eye(s) Pravastatin Sodium 20 mg 04/19/21 22:00 05/11/21 21:50 Pravastatin 20 Mg Tab PO 20 mg QHS WOLFGANG Administration Scopolamine 1 each 04/20/21 18:00 05/11/21 09:54 Scopolamine Transdermal Patch 72 Hr TD 1 each Q3D WOLFGANG Administration Simple Syrup 15 ml 04/16/21 12:52 Simple Syrup 15 Ml FEEDTUBE PRN PRN Hypoglycemia Simple Syrup 30 ml 04/16/21 12:52 Simple Syrup 15 Ml FEEDTUBE PRN PRN Hypoglycemia Sodium Bicarbonate 325 mg 04/16/21 12:52 Sodium Bicarbonate 325 Mg Tab FEEDTUBE PRN PRN For Clogged Feeding Tube Sodium Chloride 10 ml 04/15/21 22:00 05/12/21 09:22 Sodium Chloride 0.9% 10 Ml Flush Syringe IV 10 ml BID WOLFGANG Administration Sodium Chloride 10 ml 04/15/21 19:11 04/24/21 05:27 Sodium Chloride 0.9% 10 Ml Flush Syringe IV 10 ml PRN PRN Administration LINE FLUSH Tamsulosin HCl 0.4 mg 04/25/21 14:00 05/12/21 09:20 Tamsulosin 0.4 Mg Cap PO 0.4 mg QDAY WOLFGANG Administration Timolol Maleate 1 drops 04/19/21 10:00 05/12/21 09:22 Timolol 0.5% Ophth Soln 5 Ml OU 1 drops QDAY WOLFGANG Administration
--- NOTE | 2021-05-12 13:43 | Progress Note ---
Assessment and Plan Acute respiratory failure, on mechanical ventilatory support. Acute toxic metabolic encephalopathy Hypoglycemia ROJELIO Hyperkalemia Rhabdomyolysis Possible seizure activity DM II HTN CAD Obesity H/O breast cancer H/O TIA Leukocytosis Elevated serum TSH, possible hypothyroidism - slowly advance t-piece trials as tolerated - continue Robinul 1mg p.o. tid re: increased secretions - LTAC evaluation ongoing - continue care as below otherwise; - continue to wean supplemental oxygen for target O2 sat's > 90% acutely - VAP bundle addressed - continue lung protective strategies - continue bronchodilators with pulmonary hygiene per RT - continue Daily SAT and SBT assessment as tolerated - wean per pulmonary driven protocols otherwise - continue accuchecks with glycemic control per SSI (While critically ill target blood glucose of 140-180 mg/dL; avoid hypoglycemia) - sedation prn for target RASS 0 to -1 - avoid nephrotoxins, renally dose all medications - continue to avoid benzodiazepine's, reduce the possibility of delirium - complete AB's per ID rec's re: Cefepime and Flagyl - follow clinically trend fevers / WBC - prn analgesia per CPOT score - Maintenance of sleep-wake cycle, avoid delirium - continue enteral nutritional support at goal rate as tolerated - G.I. & VTE prophylaxis - PT/OT/ROM exercises - continue Flomax re: retention - continue mobility protocols for pressure ulcer prophylaxis - Monitor hemodynamics closely - continue other care per attending / other consultants - discharge planning ongoing concurrently .... Re-evaluate in am & prn CONDITION: CRITICAL PROGNOSIS: GUARDED CODE STATUS: FULL CODE The high probability of a clinically significant, sudden or life-threatening deterioration of the [respiratory, cardiovascular, GI & neurologic] system(s) required my full and direct attention, intervention and personal management. The aggregate critical care time was [32] minutes without overlap. Time includes spent on; [x] Data Review and interpretation [x] Patient assessment and monitoring of vital signs [x] Documentation [x] Medication orders and management Subjective Date of service: 05/12/21 Principal diagnosis: Ac. resp failure; AMS; Hypoglycemia; ROJELIO; Hyperkalemia; DM II Interval history: Patient is seen today for: Acute respiratory failure; AMS; Hypoglycemia; ROJELIO; Hyperkalemia; DM II; H/O breast cancer; Elevated serum TSH, possible hypothyroidism Seen and examined at bedside; 24hour events reviewed; nursing and respiratory care staff consulted; no adverse overnight events reported to me; resting peacefully in bed; remains on MVS; on t-piece trial but tolerating tenuously Objective Vital Signs - 12hr 05/12/21 05/12/21 05/12/21 02:00 03:00 03:23 Temperature 98.5 F Pulse Rate 74 75 Pulse Rate [ Anterior Bilateral Throughout] Pulse Rate [ From Monitor] Respiratory 18 22 Rate Respiratory Rate [Anterior Bilateral Throughout] Blood Pressure 130/54 141/50 O2 Sat by Pulse 100 100 Oximetry O2 Sat by Pulse Oximetry [ Assessment] 05/12/21 05/12/21 05/12/21 03:36 04:00 05:00 Temperature Pulse Rate 77 72 83 Pulse Rate [ Anterior Bilateral Throughout] Pulse Rate [ 78 From Monitor] Respiratory 16 16 Rate Respiratory Rate [Anterior Bilateral Throughout] Blood Pressure 141/50 132/45 133/56 O2 Sat by Pulse 100 100 100 Oximetry O2 Sat by Pulse Oximetry [ Assessment] 05/12/21 05/12/21 05/12/21 06:00 07:00 07:52 Temperature Pulse Rate 81 79 80 Pulse Rate [ Anterior Bilateral Throughout] Pulse Rate [ From Monitor] Respiratory 21 22 Rate Respiratory Rate [Anterior Bilateral Throughout] Blood Pressure 133/56 141/51 141/51 O2 Sat by Pulse 100 100 100 Oximetry O2 Sat by Pulse Oximetry [ Assessment] 05/12/21 05/12/21 05/12/21 07:55 08:00 08:14 Temperature 98.6 F Pulse Rate 88 Pulse Rate [ 83 Anterior Bilateral Throughout] Pulse Rate [ 88 From Monitor] Respiratory 24 Rate Respiratory 18 Rate [Anterior Bilateral Throughout] Blood Pressure 123/48 O2 Sat by Pulse 100 Oximetry O2 Sat by Pulse 100 Oximetry [ Assessment] 05/12/21 05/12/21 05/12/21 08:24 09:00 09:21 Temperature Pulse Rate 79 84 90 Pulse Rate [ Anterior Bilateral Throughout] Pulse Rate [ From Monitor] Respiratory 17 Rate Respiratory Rate [Anterior Bilateral Throughout] Blood Pressure 123/48 123/48 129/48 O2 Sat by Pulse 100 99 Oximetry O2 Sat by Pulse Oximetry [ Assessment] 05/12/21 05/12/21 05/12/21 10:00 11:00 11:58 Temperature Pulse Rate 86 92 H 76 Pulse Rate [ Anterior Bilateral Throughout] Pulse Rate [ From Monitor] Respiratory 20 26 H Rate Respiratory Rate [Anterior Bilateral Throughout] Blood Pressure 129/48 129/48 165/80 O2 Sat by Pulse 99 99 100 Oximetry O2 Sat by Pulse Oximetry [ Assessment] 05/12/21 12:00 Temperature 99.1 F Pulse Rate 77 Pulse Rate [ Anterior Bilateral Throughout] Pulse Rate [ 77 From Monitor] Respiratory 28 H Rate Respiratory Rate [Anterior Bilateral Throughout] Blood Pressure 143/71 O2 Sat by Pulse 100 Oximetry O2 Sat by Pulse Oximetry [ Assessment] Constitutional: no acute distress, other (elderly obese female with mildly increased respiratory effort at rest on MVS) Eyes: non-icteric ENT: oropharynx moist, oropharyngeal exudate pre, other (+ midline tracheostomy without bleeding stoma) Neck: supple, no lymphadenopathy, no JVD, other (large circumference) Effort: mildly labored Ascultation: Bilateral: diminished breath sounds, rhonchi Percussion: Bilateral: not dull Cardiovascular: regular rate and rhythm, other (S1,S2) Gastrointestinal: normoactive bowel sounds, hypoactive bowel sounds, non-tender, non-distended (protuberant) Integumentary: normal Extremities: no cyanosis, no edema, pulses normal, no ischemia or petechiae Neurologic: non-focal exam (tracks voice), pupils equal and round, CN II-XII normal, motor strength normal and Psychiatric: other (falt affect) CBC and BMP: 05/08/21 07:07 05/13/21 05:58 ABG, PT/INR, D-dimer: ABG ABG pH 7.498 (7.320-7.450) H 05/12/21 10:31 POC ABG pCO2 35.2 mmHg (32.0-48.0) 05/12/21 10:31 POC ABG pO2 75.8 mmHg (83-108) L 05/12/21 10:31 POC ABG HCO3 26.7 05/12/21 10:31 ABG O2 Saturation 95.2 (0-100) 05/12/21 10:31 PT/INR, D-dimer PT 14.8 Sec. (12.2-14.9) 05/07/21 08:20 INR 1.11 (0.87-1.13) 05/07/21 08:20 Abnormal lab findings: Abnormal Labs 04/15/21 04/15/21 04/15/21 17:00 17:20 17:20 WBC 11.2 H RBC Hgb Hct 43.0 H MCV RDW 15.3 H Plt Count Lymph % (Auto) 12.8 L Seg Neutrophils % 82.4 H Seg Neuts % (Manual) Lymphocytes % (Manual) Monocytes % (Manual) Seg Neutrophils # 9.3 H Seg Neutrophils # Man Lymphocytes # (Manual) Monocytes # (Manual) ABG pH POC ABG pCO2 POC ABG pO2 ABG Hemoglobin ABG Oxyhemoglobin ABG Sodium ABG Potassium ABG Chloride ABG Glucose Carboxyhemoglobin Sodium 129 L Potassium 7.1 H* Chloride 91.9 L BUN 35 H Creatinine 2.8 H Glucose POC Glucose 191 H Calcium Phosphorus Magnesium AST 69 H ALT Total Creatine Kinase CK-MB (CK-2) Troponin T Total Protein Albumin HDL Cholesterol TSH Free T3 Index Arterial Blood Glucose Arterial Blood Ionized Calcium Urine pH Urine WBC (Auto) Urine Creatinine Acetaminophen 04/15/21 04/15/21 04/15/21 17:20 17:20 17:20 WBC RBC Hgb Hct MCV RDW Plt Count Lymph % (Auto) Seg Neutrophils % Seg Neuts % (Manual) Lymphocytes % (Manual) Monocytes % (Manual) Seg Neutrophils # Seg Neutrophils # Man Lymphocytes # (Manual) Monocytes # (Manual) ABG pH POC ABG pCO2 POC ABG pO2 ABG Hemoglobin ABG Oxyhemoglobin ABG Sodium ABG Potassium ABG Chloride ABG Glucose Carboxyhemoglobin Sodium Potassium Chloride BUN Creatinine Glucose POC Glucose Calcium Phosphorus Magnesium AST ALT Total Creatine Kinase 1000 H CK-MB (CK-2) Troponin T Total Protein Albumin HDL Cholesterol TSH 14.190 H Free T3 Index Arterial Blood Glucose Arterial Blood Ionized Calcium Urine pH Urine WBC (Auto) Urine Creatinine Acetaminophen 5.0 L 04/15/21 04/15/21 04/15/21 20:49 21:23 23:15 WBC RBC Hgb Hct MCV RDW Plt Count Lymph % (Auto) Seg Neutrophils % Seg Neuts % (Manual) Lymphocytes % (Manual) Monocytes % (Manual) Seg Neutrophils # Seg Neutrophils # Man Lymphocytes # (Manual) Monocytes # (Manual) ABG pH 7.557 H POC ABG pCO2 30.0 L POC ABG pO2 493.3 H ABG Hemoglobin ABG Oxyhemoglobin 99.0 H ABG Sodium 131.5 L ABG Potassium 4.7 H ABG Chloride 94.0 L ABG Glucose 218 H Carboxyhemoglobin Sodium Potassium Chloride BUN Creatinine Glucose POC Glucose 173 H 207 H Calcium Phosphorus Magnesium AST ALT Total Creatine Kinase CK-MB (CK-2) Troponin T Total Protein Albumin HDL Cholesterol TSH Free T3 Index Arterial Blood Glucose 218 H Arterial Blood Ionized Calcium 5.4 H Urine pH Urine WBC (Auto) Urine Creatinine Acetaminophen 04/16/21 04/16/21 04/16/21 00:09 00:12 00:19 WBC RBC Hgb Hct MCV RDW Plt Count Lymph % (Auto) Seg Neutrophils % Seg Neuts % (Manual) Lymphocytes % (Manual) Monocytes % (Manual) Seg Neutrophils # Seg Neutrophils # Man Lymphocytes # (Manual) Monocytes # (Manual) ABG pH POC ABG pCO2 POC ABG pO2 ABG Hemoglobin ABG Oxyhemoglobin ABG Sodium ABG Potassium ABG Chloride ABG Glucose Carboxyhemoglobin Sodium Potassium 6.7 H* Chloride BUN Creatinine Glucose POC Glucose Calcium Phosphorus Magnesium AST ALT Total Creatine Kinase CK-MB (CK-2) Troponin T Total Protein Albumin HDL Cholesterol TSH Free T3 Index Arterial Blood Glucose Arterial Blood Ionized Calcium Urine pH 9.0 H Urine WBC (Auto) Urine Creatinine 24.4 H Acetaminophen 04/16/21 04/16/21 04/16/21 03:43 03:55 05:02 WBC 21.2 H RBC Hgb Hct 43.4 H MCV 98 H RDW Plt Count Lymph % (Auto) Seg Neutrophils % Seg Neuts % (Manual) 84.0 H Lymphocytes % (Manual) 2.0 L Monocytes % (Manual) 10.0 H Seg Neutrophils # Seg Neutrophils # Man 17.8 H Lymphocytes # (Manual) 0.4 L Monocytes # (Manual) 2.1 H ABG pH 7.461 H POC ABG pCO2 POC ABG pO2 ABG Hemoglobin ABG Oxyhemoglobin ABG Sodium 126.8 L ABG Potassium 5.4 H ABG Chloride 90.0 L ABG Glucose 325 H Carboxyhemoglobin Sodium Potassium Chloride BUN Creatinine Glucose POC Glucose 391 H Calcium Phosphorus Magnesium AST ALT Total Creatine Kinase CK-MB (CK-2) Troponin T Total Protein Albumin HDL Cholesterol TSH Free T3 Index Arterial Blood Glucose 325 H Arterial Blood Ionized Calcium Urine pH Urine WBC (Auto) Urine Creatinine Acetaminophen 04/16/21 04/16/21 04/16/21 05:02 11:34 16:09 WBC RBC Hgb Hct MCV RDW Plt Count Lymph % (Auto) Seg Neutrophils % Seg Neuts % (Manual) Lymphocytes % (Manual) Monocytes % (Manual) Seg Neutrophils # Seg Neutrophils # Man Lymphocytes # (Manual) Monocytes # (Manual) ABG pH POC ABG pCO2 POC ABG pO2 ABG Hemoglobin ABG Oxyhemoglobin ABG Sodium ABG Potassium ABG Chloride ABG Glucose Carboxyhemoglobin Sodium 131 L Potassium 5.9 H Chloride 88.7 L BUN 34 H Creatinine 2.9 H Glucose 249 H POC Glucose 382 H 300 H Calcium 10.4 H Phosphorus Magnesium AST 65 H ALT Total Creatine Kinase CK-MB (CK-2) Troponin T Total Protein Albumin 3.8 L HDL Cholesterol TSH Free T3 Index Arterial Blood Glucose Arterial Blood Ionized Calcium Urine pH Urine WBC (Auto) Urine Creatinine Acetaminophen 04/16/21 04/16/21 04/16/21 18:15 19:01 19:01 WBC RBC Hgb Hct MCV RDW Plt Count Lymph % (Auto) Seg Neutrophils % Seg Neuts % (Manual) Lymphocytes % (Manual) Monocytes % (Manual) Seg Neutrophils # Seg Neutrophils # Man Lymphocytes # (Manual) Monocytes # (Manual) ABG pH POC ABG pCO2 POC ABG pO2 ABG Hemoglobin ABG Oxyhemoglobin ABG Sodium ABG Potassium ABG Chloride ABG Glucose Carboxyhemoglobin Sodium 125 L Potassium 5.5 H Chloride 84.5 L BUN 37 H Creatinine 3.5 H Glucose 236 H POC Glucose 287 H Calcium Phosphorus Magnesium AST ALT Total Creatine Kinase CK-MB (CK-2) Troponin T Total Protein Albumin HDL Cholesterol TSH Free T3 Index 1.1 L Arterial Blood Glucose Arterial Blood Ionized Calcium Urine pH Urine WBC (Auto) Urine Creatinine Acetaminophen 04/16/21 04/16/21 04/17/21 19:01 23:48 03:09 WBC RBC Hgb Hct MCV RDW Plt Count Lymph % (Auto) Seg Neutrophils % Seg Neuts % (Manual) Lymphocytes % (Manual) Monocytes % (Manual) Seg Neutrophils # Seg Neutrophils # Man Lymphocytes # (Manual) Monocytes # (Manual) ABG pH 7.518 H POC ABG pCO2 POC ABG pO2 ABG Hemoglobin ABG Oxyhemoglobin ABG Sodium 126.4 L ABG Potassium ABG Chloride 89.0 L ABG Glucose 200 H Carboxyhemoglobin Sodium Potassium 5.6 H Chloride BUN Creatinine Glucose POC Glucose 243 H Calcium Phosphorus Magnesium AST ALT Total Creatine Kinase CK-MB (CK-2) Troponin T Total Protein Albumin HDL Cholesterol TSH Free T3 Index Arterial Blood Glucose 200 H Arterial Blood Ionized Calcium 4.4 L Urine pH Urine WBC (Auto) Urine Creatinine Acetaminophen 04/17/21 04/17/21 04/17/21 05:04 06:14 11:55 WBC RBC Hgb Hct MCV RDW Plt Count Lymph % (Auto) Seg Neutrophils % Seg Neuts % (Manual) Lymphocytes % (Manual) Monocytes % (Manual) Seg Neutrophils # Seg Neutrophils # Man Lymphocytes # (Manual) Monocytes # (Manual) ABG pH POC ABG pCO2 POC ABG pO2 ABG Hemoglobin ABG Oxyhemoglobin ABG Sodium ABG Potassium ABG Chloride ABG Glucose Carboxyhemoglobin Sodium 129 L Potassium Chloride 86.1 L BUN 39 H Creatinine 3.5 H Glucose 202 H POC Glucose 208 H 276 H Calcium Phosphorus Magnesium AST ALT Total Creatine Kinase 750 H CK-MB (CK-2) Troponin T 0.119 H* D Total Protein Albumin HDL Cholesterol 61 H TSH Free T3 Index Arterial Blood Glucose Arterial Blood Ionized Calcium Urine pH Urine WBC (Auto) Urine Creatinine Acetaminophen 04/17/21 04/17/21 04/17/21 15:35 15:35 17:07 WBC 17.1 H RBC Hgb Hct MCV RDW Plt Count Lymph % (Auto) Seg Neutrophils % Seg Neuts % (Manual) Lymphocytes % (Manual) Monocytes % (Manual) Seg Neutrophils # Seg Neutrophils # Man Lymphocytes # (Manual) Monocytes # (Manual) ABG pH POC ABG pCO2 POC ABG pO2 ABG Hemoglobin ABG Oxyhemoglobin ABG Sodium ABG Potassium ABG Chloride ABG Glucose Carboxyhemoglobin Sodium Potassium Chloride BUN Creatinine Glucose POC Glucose 148 H Calcium Phosphorus Magnesium AST ALT Total Creatine Kinase 615 H CK-MB (CK-2) 9.1 H Troponin T Total Protein Albumin HDL Cholesterol TSH Free T3 Index Arterial Blood Glucose Arterial Blood Ionized Calcium Urine pH Urine WBC (Auto) Urine Creatinine Acetaminophen 04/18/21 04/18/21 04/18/21 00:01 03:00 05:24 WBC RBC Hgb Hct MCV RDW Plt Count Lymph % (Auto) Seg Neutrophils % Seg Neuts % (Manual) Lymphocytes % (Manual) Monocytes % (Manual) Seg Neutrophils # Seg Neutrophils # Man Lymphocytes # (Manual) Monocytes # (Manual) ABG pH 7.497 H POC ABG pCO2 POC ABG pO2 77.7 L ABG Hemoglobin 10.4 L ABG Oxyhemoglobin ABG Sodium 129.7 L ABG Potassium 2.8 L ABG Chloride 92.0 L ABG Glucose 134 H Carboxyhemoglobin 0.3 L Sodium Potassium Chloride BUN Creatinine Glucose POC Glucose 192 H 162 H Calcium Phosphorus Magnesium AST ALT Total Creatine Kinase CK-MB (CK-2) Troponin T Total Protein Albumin HDL Cholesterol TSH Free T3 Index Arterial Blood Glucose 134 H Arterial Blood Ionized Calcium 4.3 L Urine pH Urine WBC (Auto) Urine Creatinine Acetaminophen 04/18/21 04/18/21 04/18/21 05:34 05:34 05:43 WBC 15.3 H RBC 3.34 L Hgb Hct MCV RDW 15.3 H Plt Count Lymph % (Auto) Seg Neutrophils % Seg Neuts % (Manual) Lymphocytes % (Manual) Monocytes % (Manual) Seg Neutrophils # Seg Neutrophils # Man Lymphocytes # (Manual) Monocytes # (Manual) ABG pH POC ABG pCO2 POC ABG pO2 ABG Hemoglobin ABG Oxyhemoglobin ABG Sodium ABG Potassium ABG Chloride ABG Glucose Carboxyhemoglobin Sodium 134 L Potassium 3.0 L D Chloride 93.5 L BUN 42 H Creatinine 3.1 H Glucose 152 H POC Glucose Calcium Phosphorus Magnesium 1.40 L AST ALT Total Creatine Kinase 427 H CK-MB (CK-2) Troponin T 0.081 H D Total Protein Albumin HDL Cholesterol TSH Free T3 Index Arterial Blood Glucose Arterial Blood Ionized Calcium Urine pH Urine WBC (Auto) Urine Creatinine Acetaminophen 04/18/21 04/18/21 04/18/21 09:11 11:34 17:24 WBC RBC Hgb Hct MCV RDW Plt Count Lymph % (Auto) Seg Neutrophils % Seg Neuts % (Manual) Lymphocytes % (Manual) Monocytes % (Manual) Seg Neutrophils # Seg Neutrophils # Man Lymphocytes # (Manual) Monocytes # (Manual) ABG pH POC ABG pCO2 POC ABG pO2 ABG Hemoglobin ABG Oxyhemoglobin ABG Sodium ABG Potassium ABG Chloride ABG Glucose Carboxyhemoglobin Sodium Potassium Chloride BUN Creatinine Glucose POC Glucose 170 H 151 H Calcium Phosphorus Magnesium AST ALT Total Creatine Kinase CK-MB (CK-2) Troponin T Total Protein Albumin HDL Cholesterol TSH Free T3 Index Arterial Blood Glucose Arterial Blood Ionized Calcium Urine pH Urine WBC (Auto) 34.0 H Urine Creatinine Acetaminophen 04/18/21 04/19/21 04/19/21 23:18 04:09 05:19 WBC RBC Hgb Hct MCV RDW Plt Count Lymph % (Auto) Seg Neutrophils % Seg Neuts % (Manual) Lymphocytes % (Manual) Monocytes % (Manual) Seg Neutrophils # Seg Neutrophils # Man Lymphocytes # (Manual) Monocytes # (Manual) ABG pH 7.476 H POC ABG pCO2 POC ABG pO2 79.4 L ABG Hemoglobin 10.7 L ABG Oxyhemoglobin ABG Sodium 131.2 L ABG Potassium 2.8 L ABG Chloride 94.0 L ABG Glucose 209 H Carboxyhemoglobin 0.3 L Sodium Potassium Chloride BUN Creatinine Glucose POC Glucose 182 H 204 H Calcium Phosphorus Magnesium AST ALT Total Creatine Kinase CK-MB (CK-2) Troponin T Total Protein Albumin HDL Cholesterol TSH Free T3 Index Arterial Blood Glucose 209 H Arterial Blood Ionized Calcium Urine pH Urine WBC (Auto) Urine Creatinine Acetaminophen 04/19/21 04/19/21 04/19/21 07:30 07:30 10:35 WBC 14.8 H RBC 3.20 L Hgb Hct MCV 98 H RDW Plt Count 137 L Lymph % (Auto) Seg Neutrophils % Seg Neuts % (Manual) Lymphocytes % (Manual) Monocytes % (Manual) Seg Neutrophils # Seg Neutrophils # Man Lymphocytes # (Manual) Monocytes # (Manual) ABG pH 7.464 H POC ABG pCO2 POC ABG pO2 81.8 L ABG Hemoglobin 10.8 L ABG Oxyhemoglobin ABG Sodium 129.6 L ABG Potassium ABG Chloride 95.0 L ABG Glucose 238 H Carboxyhemoglobin Sodium 133 L Potassium 2.8 L* Chloride 94.4 L BUN 43 H Creatinine 2.7 H Glucose 255 H POC Glucose Calcium 8.0 L Phosphorus Magnesium AST ALT Total Creatine Kinase CK-MB (CK-2) Troponin T 0.060 H D Total Protein Albumin HDL Cholesterol TSH Free T3 Index Arterial Blood Glucose 238 H Arterial Blood Ionized Calcium Urine pH Urine WBC (Auto) Urine Creatinine Acetaminophen 04/19/21 04/19/21 04/19/21 11:48 20:40 23:04 WBC RBC Hgb Hct MCV RDW Plt Count Lymph % (Auto) Seg Neutrophils % Seg Neuts % (Manual) Lymphocytes % (Manual) Monocytes % (Manual) Seg Neutrophils # Seg Neutrophils # Man Lymphocytes # (Manual) Monocytes # (Manual) ABG pH POC ABG pCO2 POC ABG pO2 ABG Hemoglobin ABG Oxyhemoglobin ABG Sodium ABG Potassium ABG Chloride ABG Glucose Carboxyhemoglobin Sodium Potassium 3.4 L D Chloride BUN Creatinine Glucose POC Glucose 208 H 173 H Calcium Phosphorus Magnesium AST ALT Total Creatine Kinase CK-MB (CK-2) Troponin T Total Protein Albumin HDL Cholesterol TSH Free T3 Index Arterial Blood Glucose Arterial Blood Ionized Calcium Urine pH Urine WBC (Auto) Urine Creatinine Acetaminophen 04/20/21 04/20/21 04/20/21 02:56 03:32 03:32 WBC 13.2 H RBC 3.18 L Hgb Hct MCV RDW Plt Count Lymph % (Auto) Seg Neutrophils % Seg Neuts % (Manual) Lymphocytes % (Manual) Monocytes % (Manual) Seg Neutrophils # Seg Neutrophils # Man Lymphocytes # (Manual) Monocytes # (Manual) ABG pH 7.526 H POC ABG pCO2 POC ABG pO2 ABG Hemoglobin 10.5 L ABG Oxyhemoglobin ABG Sodium 133.5 L ABG Potassium ABG Chloride ABG Glucose 157 H Carboxyhemoglobin 0.3 L Sodium 135 L Potassium Chloride 96.7 L BUN 40 H Creatinine 2.3 H Glucose 142 H POC Glucose Calcium Phosphorus Magnesium AST ALT Total Creatine Kinase CK-MB (CK-2) Troponin T 0.065 H Total Protein Albumin HDL Cholesterol TSH Free T3 Index Arterial Blood Glucose 157 H Arterial Blood Ionized Calcium Urine pH Urine WBC (Auto) Urine Creatinine Acetaminophen 04/20/21 04/20/21 04/20/21 03:46 05:42 11:50 WBC RBC Hgb Hct MCV RDW Plt Count Lymph % (Auto) Seg Neutrophils % Seg Neuts % (Manual) Lymphocytes % (Manual) Monocytes % (Manual) Seg Neutrophils # Seg Neutrophils # Man Lymphocytes # (Manual) Monocytes # (Manual) ABG pH POC ABG pCO2 POC ABG pO2 ABG Hemoglobin ABG Oxyhemoglobin ABG Sodium ABG Potassium ABG Chloride ABG Glucose Carboxyhemoglobin Sodium Potassium Chloride BUN Creatinine Glucose POC Glucose 160 H 194 H Calcium Phosphorus 2.10 L Magnesium AST ALT Total Creatine Kinase CK-MB (CK-2) Troponin T Total Protein Albumin HDL Cholesterol TSH Free T3 Index Arterial Blood Glucose Arterial Blood Ionized Calcium Urine pH Urine WBC (Auto) Urine Creatinine Acetaminophen 04/20/21 04/20/21 04/21/21 17:09 23:18 05:26 WBC RBC Hgb Hct MCV RDW Plt Count Lymph % (Auto) Seg Neutrophils % Seg Neuts % (Manual) Lymphocytes % (Manual) Monocytes % (Manual) Seg Neutrophils # Seg Neutrophils # Man Lymphocytes # (Manual) Monocytes # (Manual) ABG pH POC ABG pCO2 POC ABG pO2 ABG Hemoglobin ABG Oxyhemoglobin ABG Sodium ABG Potassium ABG Chloride ABG Glucose Carboxyhemoglobin Sodium Potassium Chloride BUN Creatinine Glucose POC Glucose 153 H 162 H 164 H Calcium Phosphorus Magnesium AST ALT Total Creatine Kinase CK-MB (CK-2) Troponin T Total Protein Albumin HDL Cholesterol TSH Free T3 Index Arterial Blood Glucose Arterial Blood Ionized Calcium Urine pH Urine WBC (Auto) Urine Creatinine Acetaminophen 04/21/21 04/21/21 04/21/21 05:51 05:51 12:12 WBC RBC 3.20 L Hgb Hct MCV 99 H RDW 15.3 H Plt Count Lymph % (Auto) Seg Neutrophils % Seg Neuts % (Manual) Lymphocytes % (Manual) Monocytes % (Manual) Seg Neutrophils # Seg Neutrophils # Man Lymphocytes # (Manual) Monocytes # (Manual) ABG pH POC ABG pCO2 POC ABG pO2 ABG Hemoglobin ABG Oxyhemoglobin ABG Sodium ABG Potassium ABG Chloride ABG Glucose Carboxyhemoglobin Sodium Potassium Chloride 96.6 L BUN 42 H Creatinine 2.1 H Glucose 171 H POC Glucose 167 H Calcium Phosphorus Magnesium AST ALT Total Creatine Kinase CK-MB (CK-2) Troponin T Total Protein Albumin HDL Cholesterol TSH Free T3 Index Arterial Blood Glucose Arterial Blood Ionized Calcium Urine pH Urine WBC (Auto) Urine Creatinine Acetaminophen 04/21/21 04/21/21 04/22/21 17:13 23:42 05:29 WBC RBC Hgb Hct MCV RDW Plt Count Lymph % (Auto) Seg Neutrophils % Seg Neuts % (Manual) Lymphocytes % (Manual) Monocytes % (Manual) Seg Neutrophils # Seg Neutrophils # Man Lymphocytes # (Manual) Monocytes # (Manual) ABG pH POC ABG pCO2 POC ABG pO2 ABG Hemoglobin ABG Oxyhemoglobin ABG Sodium ABG Potassium ABG Chloride ABG Glucose Carboxyhemoglobin Sodium Potassium Chloride BUN Creatinine Glucose POC Glucose 178 H 253 H 208 H Calcium Phosphorus Magnesium AST ALT Total Creatine Kinase CK-MB (CK-2) Troponin T Total Protein Albumin HDL Cholesterol TSH Free T3 Index Arterial Blood Glucose Arterial Blood Ionized Calcium Urine pH Urine WBC (Auto) Urine Creatinine Acetaminophen 04/22/21 04/22/21 04/22/21 08:00 08:00 12:06 WBC 12.9 H RBC Hgb Hct MCV RDW Plt Count Lymph % (Auto) Seg Neutrophils % Seg Neuts % (Manual) Lymphocytes % (Manual) Monocytes % (Manual) Seg Neutrophils # Seg Neutrophils # Man Lymphocytes # (Manual) Monocytes # (Manual) ABG pH POC ABG pCO2 POC ABG pO2 ABG Hemoglobin ABG Oxyhemoglobin ABG Sodium ABG Potassium ABG Chloride ABG Glucose Carboxyhemoglobin Sodium Potassium Chloride BUN 47 H Creatinine 1.9 H Glucose 252 H POC Glucose 298 H Calcium Phosphorus Magnesium AST ALT Total Creatine Kinase CK-MB (CK-2) Troponin T Total Protein Albumin HDL Cholesterol TSH Free T3 Index Arterial Blood Glucose Arterial Blood Ionized Calcium Urine pH Urine WBC (Auto) Urine Creatinine Acetaminophen 04/22/21 04/22/21 04/23/21 17:34 23:01 05:08 WBC RBC Hgb Hct MCV RDW Plt Count Lymph % (Auto) Seg Neutrophils % Seg Neuts % (Manual) Lymphocytes % (Manual) Monocytes % (Manual) Seg Neutrophils # Seg Neutrophils # Man Lymphocytes # (Manual) Monocytes # (Manual) ABG pH POC ABG pCO2 POC ABG pO2 ABG Hemoglobin ABG Oxyhemoglobin ABG Sodium ABG Potassium ABG Chloride ABG Glucose Carboxyhemoglobin Sodium Potassium Chloride BUN Creatinine Glucose POC Glucose 259 H 280 H 223 H Calcium Phosphorus Magnesium AST ALT Total Creatine Kinase CK-MB (CK-2) Troponin T Total Protein Albumin HDL Cholesterol TSH Free T3 Index Arterial Blood Glucose Arterial Blood Ionized Calcium Urine pH Urine WBC (Auto) Urine Creatinine Acetaminophen 04/23/21 04/23/21 04/23/21 07:02 11:57 17:33 WBC RBC Hgb Hct MCV RDW Plt Count Lymph % (Auto) Seg Neutrophils % Seg Neuts % (Manual) Lymphocytes % (Manual) Monocytes % (Manual) Seg Neutrophils # Seg Neutrophils # Man Lymphocytes # (Manual) Monocytes # (Manual) ABG pH POC ABG pCO2 POC ABG pO2 ABG Hemoglobin ABG Oxyhemoglobin ABG Sodium ABG Potassium ABG Chloride ABG Glucose Carboxyhemoglobin Sodium Potassium Chloride 97.7 L BUN 57 H Creatinine 2.0 H Glucose 253 H POC Glucose 310 H 235 H Calcium Phosphorus Magnesium AST ALT Total Creatine Kinase CK-MB (CK-2) Troponin T Total Protein Albumin HDL Cholesterol TSH Free T3 Index Arterial Blood Glucose Arterial Blood Ionized Calcium Urine pH Urine WBC (Auto) Urine Creatinine Acetaminophen 04/23/21 04/24/21 04/24/21 23:15 05:23 05:46 WBC RBC Hgb Hct MCV RDW Plt Count Lymph % (Auto) Seg Neutrophils % Seg Neuts % (Manual) Lymphocytes % (Manual) Monocytes % (Manual) Seg Neutrophils # Seg Neutrophils # Man Lymphocytes # (Manual) Monocytes # (Manual) ABG pH POC ABG pCO2 POC ABG pO2 ABG Hemoglobin ABG Oxyhemoglobin ABG Sodium ABG Potassium ABG Chloride ABG Glucose Carboxyhemoglobin Sodium Potassium 5.2 H D Chloride BUN 68 H Creatinine 2.3 H Glucose 277 H POC Glucose 197 H 274 H Calcium Phosphorus Magnesium AST ALT Total Creatine Kinase CK-MB (CK-2) Troponin T Total Protein Albumin HDL Cholesterol TSH Free T3 Index Arterial Blood Glucose Arterial Blood Ionized Calcium Urine pH Urine WBC (Auto) Urine Creatinine Acetaminophen 04/24/21 04/24/21 04/24/21 11:33 11:52 17:49 WBC RBC Hgb Hct MCV RDW Plt Count Lymph % (Auto) Seg Neutrophils % Seg Neuts % (Manual) Lymphocytes % (Manual) Monocytes % (Manual) Seg Neutrophils # Seg Neutrophils # Man Lymphocytes # (Manual) Monocytes # (Manual) ABG pH POC ABG pCO2 POC ABG pO2 72.7 L ABG Hemoglobin 11.6 L ABG Oxyhemoglobin 92.9 L ABG Sodium ABG Potassium ABG Chloride ABG Glucose 269 H Carboxyhemoglobin Sodium Potassium Chloride BUN Creatinine Glucose POC Glucose 223 H 252 H Calcium Phosphorus Magnesium AST ALT Total Creatine Kinase CK-MB (CK-2) Troponin T Total Protein Albumin HDL Cholesterol TSH Free T3 Index Arterial Blood Glucose 269 H Arterial Blood Ionized Calcium Urine pH Urine WBC (Auto) Urine Creatinine Acetaminophen 04/24/21 04/24/21 04/25/21 21:00 23:48 03:06 WBC RBC Hgb Hct MCV RDW Plt Count Lymph % (Auto) Seg Neutrophils % Seg Neuts % (Manual) Lymphocytes % (Manual) Monocytes % (Manual) Seg Neutrophils # Seg Neutrophils # Man Lymphocytes # (Manual) Monocytes # (Manual) ABG pH 7.521 H 7.451 H POC ABG pCO2 POC ABG pO2 80.7 L 77.1 L ABG Hemoglobin 10.4 L 11.2 L ABG Oxyhemoglobin ABG Sodium ABG Potassium ABG Chloride ABG Glucose 186 H 165 H Carboxyhemoglobin 0 L Sodium Potassium Chloride BUN Creatinine Glucose POC Glucose 141 H Calcium Phosphorus Magnesium AST ALT Total Creatine Kinase CK-MB (CK-2) Troponin T Total Protein Albumin HDL Cholesterol TSH Free T3 Index Arterial Blood Glucose 186 H 165 H Arterial Blood Ionized Calcium Urine pH Urine WBC (Auto) Urine Creatinine Acetaminophen 04/25/21 04/25/21 04/25/21 03:56 03:56 06:03 WBC 12.3 H RBC 3.40 L Hgb Hct MCV RDW Plt Count Lymph % (Auto) Seg Neutrophils % Seg Neuts % (Manual) Lymphocytes % (Manual) Monocytes % (Manual) Seg Neutrophils # Seg Neutrophils # Man Lymphocytes # (Manual) Monocytes # (Manual) ABG pH POC ABG pCO2 POC ABG pO2 ABG Hemoglobin ABG Oxyhemoglobin ABG Sodium ABG Potassium ABG Chloride ABG Glucose Carboxyhemoglobin Sodium Potassium Chloride BUN 78 H Creatinine 2.5 H Glucose 152 H POC Glucose 171 H Calcium Phosphorus Magnesium AST ALT Total Creatine Kinase CK-MB (CK-2) Troponin T Total Protein Albumin HDL Cholesterol TSH Free T3 Index Arterial Blood Glucose Arterial Blood Ionized Calcium Urine pH Urine WBC (Auto) Urine Creatinine Acetaminophen 04/25/21 04/25/21 04/26/21 11:43 15:37 00:05 WBC RBC Hgb Hct MCV RDW Plt Count Lymph % (Auto) Seg Neutrophils % Seg Neuts % (Manual) Lymphocytes % (Manual) Monocytes % (Manual) Seg Neutrophils # Seg Neutrophils # Man Lymphocytes # (Manual) Monocytes # (Manual) ABG pH POC ABG pCO2 POC ABG pO2 ABG Hemoglobin ABG Oxyhemoglobin ABG Sodium ABG Potassium ABG Chloride ABG Glucose Carboxyhemoglobin Sodium Potassium Chloride BUN Creatinine Glucose POC Glucose 181 H 167 H 144 H Calcium Phosphorus Magnesium AST ALT Total Creatine Kinase CK-MB (CK-2) Troponin T Total Protein Albumin HDL Cholesterol TSH Free T3 Index Arterial Blood Glucose Arterial Blood Ionized Calcium Urine pH Urine WBC (Auto) Urine Creatinine Acetaminophen 04/26/21 04/26/21 04/26/21 04:30 05:44 09:30 WBC RBC Hgb Hct MCV RDW Plt Count Lymph % (Auto) Seg Neutrophils % Seg Neuts % (Manual) Lymphocytes % (Manual) Monocytes % (Manual) Seg Neutrophils # Seg Neutrophils # Man Lymphocytes # (Manual) Monocytes # (Manual) ABG pH 7.529 H POC ABG pCO2 POC ABG pO2 66.1 L ABG Hemoglobin 11.2 L ABG Oxyhemoglobin 92.8 L ABG Sodium ABG Potassium ABG Chloride ABG Glucose 216 H Carboxyhemoglobin 0.3 L Sodium Potassium Chloride BUN 82 H Creatinine 2.7 H Glucose 238 H POC Glucose 202 H Calcium Phosphorus Magnesium AST ALT Total Creatine Kinase CK-MB (CK-2) Troponin T Total Protein Albumin HDL Cholesterol TSH Free T3 Index Arterial Blood Glucose 216 H Arterial Blood Ionized Calcium Urine pH Urine WBC (Auto) Urine Creatinine Acetaminophen 04/26/21 04/26/21 04/26/21 09:30 11:32 17:21 WBC 24.7 H RBC 3.32 L Hgb Hct MCV RDW Plt Count Lymph % (Auto) Seg Neutrophils % Seg Neuts % (Manual) Lymphocytes % (Manual) Monocytes % (Manual) Seg Neutrophils # Seg Neutrophils # Man Lymphocytes # (Manual) Monocytes # (Manual) ABG pH POC ABG pCO2 POC ABG pO2 ABG Hemoglobin ABG Oxyhemoglobin ABG Sodium ABG Potassium ABG Chloride ABG Glucose Carboxyhemoglobin Sodium Potassium Chloride BUN Creatinine Glucose POC Glucose 245 H 264 H Calcium Phosphorus Magnesium AST ALT Total Creatine Kinase CK-MB (CK-2) Troponin T Total Protein Albumin HDL Cholesterol TSH Free T3 Index Arterial Blood Glucose Arterial Blood Ionized Calcium Urine pH Urine WBC (Auto) Urine Creatinine Acetaminophen 04/26/21 04/27/21 04/27/21 23:18 04:23 04:54 WBC RBC Hgb Hct MCV RDW Plt Count Lymph % (Auto) Seg Neutrophils % Seg Neuts % (Manual) Lymphocytes % (Manual) Monocytes % (Manual) Seg Neutrophils # Seg Neutrophils # Man Lymphocytes # (Manual) Monocytes # (Manual) ABG pH 7.549 H POC ABG pCO2 30.0 L POC ABG pO2 64.9 L ABG Hemoglobin 11 L ABG Oxyhemoglobin 93.3 L ABG Sodium ABG Potassium ABG Chloride ABG Glucose 325 H Carboxyhemoglobin 0.3 L Sodium Potassium Chloride BUN Creatinine Glucose POC Glucose 201 H 298 H Calcium Phosphorus Magnesium AST ALT Total Creatine Kinase CK-MB (CK-2) Troponin T Total Protein Albumin HDL Cholesterol TSH Free T3 Index Arterial Blood Glucose 325 H Arterial Blood Ionized Calcium Urine pH Urine WBC (Auto) Urine Creatinine Acetaminophen 04/27/21 04/27/21 04/27/21 07:52 07:52 11:22 WBC 23.0 H RBC 3.32 L Hgb Hct MCV RDW 15.5 H Plt Count Lymph % (Auto) Seg Neutrophils % Seg Neuts % (Manual) Lymphocytes % (Manual) Monocytes % (Manual) Seg Neutrophils # Seg Neutrophils # Man Lymphocytes # (Manual) Monocytes # (Manual) ABG pH POC ABG pCO2 POC ABG pO2 ABG Hemoglobin ABG Oxyhemoglobin ABG Sodium ABG Potassium ABG Chloride ABG Glucose Carboxyhemoglobin Sodium Potassium 3.5 L Chloride BUN 90 H Creatinine 2.8 H Glucose 286 H POC Glucose 251 H Calcium Phosphorus Magnesium AST ALT Total Creatine Kinase CK-MB (CK-2) Troponin T Total Protein Albumin HDL Cholesterol TSH Free T3 Index Arterial Blood Glucose Arterial Blood Ionized Calcium Urine pH Urine WBC (Auto) Urine Creatinine Acetaminophen 04/27/21 04/27/21 04/27/21 17:21 17:45 23:05 WBC RBC Hgb Hct MCV RDW Plt Count Lymph % (Auto) Seg Neutrophils % Seg Neuts % (Manual) Lymphocytes % (Manual) Monocytes % (Manual) Seg Neutrophils # Seg Neutrophils # Man Lymphocytes # (Manual) Monocytes # (Manual) ABG pH POC ABG pCO2 POC ABG pO2 ABG Hemoglobin ABG Oxyhemoglobin ABG Sodium ABG Potassium ABG Chloride ABG Glucose Carboxyhemoglobin Sodium Potassium Chloride BUN Creatinine Glucose POC Glucose 180 H 178 H 189 H Calcium Phosphorus Magnesium AST ALT Total Creatine Kinase CK-MB (CK-2) Troponin T Total Protein Albumin HDL Cholesterol TSH Free T3 Index Arterial Blood Glucose Arterial Blood Ionized Calcium Urine pH Urine WBC (Auto) Urine Creatinine Acetaminophen 04/28/21 04/28/21 04/28/21 03:14 04:13 04:13 WBC 17.6 H RBC 3.03 L Hgb 9.7 L Hct 29.5 L MCV RDW Plt Count Lymph % (Auto) Seg Neutrophils % Seg Neuts % (Manual) Lymphocytes % (Manual) Monocytes % (Manual) Seg Neutrophils # Seg Neutrophils # Man Lymphocytes # (Manual) Monocytes # (Manual) ABG pH 7.507 H POC ABG pCO2 POC ABG pO2 62.0 L ABG Hemoglobin 10.2 L ABG Oxyhemoglobin 91.9 L ABG Sodium ABG Potassium ABG Chloride ABG Glucose 337 H Carboxyhemoglobin 0.2 L Sodium Potassium Chloride BUN 101 H Creatinine 3.1 H Glucose 304 H POC Glucose Calcium Phosphorus Magnesium AST 61 H ALT 64 H Total Creatine Kinase CK-MB (CK-2) Troponin T Total Protein 6.2 L Albumin 2.6 L HDL Cholesterol TSH Free T3 Index Arterial Blood Glucose 337 H Arterial Blood Ionized Calcium Urine pH Urine WBC (Auto) Urine Creatinine Acetaminophen 04/28/21 04/28/21 04/28/21 05:01 11:28 18:23 WBC RBC Hgb Hct MCV RDW Plt Count Lymph % (Auto) Seg Neutrophils % Seg Neuts % (Manual) Lymphocytes % (Manual) Monocytes % (Manual) Seg Neutrophils # Seg Neutrophils # Man Lymphocytes # (Manual) Monocytes # (Manual) ABG pH POC ABG pCO2 POC ABG pO2 ABG Hemoglobin ABG Oxyhemoglobin ABG Sodium ABG Potassium ABG Chloride ABG Glucose Carboxyhemoglobin Sodium Potassium Chloride BUN Creatinine Glucose POC Glucose 282 H 263 H 200 H Calcium Phosphorus Magnesium AST ALT Total Creatine Kinase CK-MB (CK-2) Troponin T Total Protein Albumin HDL Cholesterol TSH Free T3 Index Arterial Blood Glucose Arterial Blood Ionized Calcium Urine pH Urine WBC (Auto) Urine Creatinine Acetaminophen 04/28/21 04/29/21 04/29/21 23:49 03:24 04:22 WBC RBC Hgb Hct MCV RDW Plt Count Lymph % (Auto) Seg Neutrophils % Seg Neuts % (Manual) Lymphocytes % (Manual) Monocytes % (Manual) Seg Neutrophils # Seg Neutrophils # Man Lymphocytes # (Manual) Monocytes # (Manual) ABG pH 7.546 H POC ABG pCO2 POC ABG pO2 52.4 L ABG Hemoglobin 10.5 L ABG Oxyhemoglobin 88.3 L ABG Sodium ABG Potassium ABG Chloride ABG Glucose 217 H Carboxyhemoglobin 0.4 L Sodium 148 H Potassium Chloride BUN 110 H Creatinine 3.1 H Glucose 208 H POC Glucose 238 H Calcium Phosphorus Magnesium AST ALT Total Creatine Kinase CK-MB (CK-2) Troponin T Total Protein Albumin HDL Cholesterol TSH Free T3 Index Arterial Blood Glucose 217 H Arterial Blood Ionized Calcium Urine pH Urine WBC (Auto) Urine Creatinine Acetaminophen 04/29/21 04/29/21 04/29/21 04:22 05:08 11:26 WBC 15.2 H RBC 3.30 L Hgb 9.8 L Hct MCV RDW Plt Count Lymph % (Auto) Seg Neutrophils % Seg Neuts % (Manual) Lymphocytes % (Manual) Monocytes % (Manual) Seg Neutrophils # Seg Neutrophils # Man Lymphocytes # (Manual) Monocytes # (Manual) ABG pH POC ABG pCO2 POC ABG pO2 ABG Hemoglobin ABG Oxyhemoglobin ABG Sodium ABG Potassium ABG Chloride ABG Glucose Carboxyhemoglobin Sodium Potassium Chloride BUN Creatinine Glucose POC Glucose 181 H 218 H Calcium Phosphorus Magnesium AST ALT Total Creatine Kinase CK-MB (CK-2) Troponin T Total Protein Albumin HDL Cholesterol TSH Free T3 Index Arterial Blood Glucose Arterial Blood Ionized Calcium Urine pH Urine WBC (Auto) Urine Creatinine Acetaminophen 04/29/21 04/29/21 04/30/21 17:06 23:06 03:58 WBC RBC Hgb Hct MCV RDW Plt Count Lymph % (Auto) Seg Neutrophils % Seg Neuts % (Manual) Lymphocytes % (Manual) Monocytes % (Manual) Seg Neutrophils # Seg Neutrophils # Man Lymphocytes # (Manual) Monocytes # (Manual) ABG pH 7.547 H POC ABG pCO2 31.3 L POC ABG pO2 58.4 L ABG Hemoglobin 9.6 L ABG Oxyhemoglobin 91.1 L ABG Sodium ABG Potassium ABG Chloride 108.0 H ABG Glucose 248 H Carboxyhemoglobin 0.2 L Sodium Potassium Chloride BUN Creatinine Glucose POC Glucose 223 H 252 H Calcium Phosphorus Magnesium AST ALT Total Creatine Kinase CK-MB (CK-2) Troponin T Total Protein Albumin HDL Cholesterol TSH Free T3 Index Arterial Blood Glucose 248 H Arterial Blood Ionized Calcium Urine pH Urine WBC (Auto) Urine Creatinine Acetaminophen 04/30/21 04/30/21 04/30/21 05:23 05:54 11:47 WBC RBC Hgb Hct MCV RDW Plt Count Lymph % (Auto) Seg Neutrophils % Seg Neuts % (Manual) Lymphocytes % (Manual) Monocytes % (Manual) Seg Neutrophils # Seg Neutrophils # Man Lymphocytes # (Manual) Monocytes # (Manual) ABG pH POC ABG pCO2 POC ABG pO2 ABG Hemoglobin ABG Oxyhemoglobin ABG Sodium ABG Potassium ABG Chloride ABG Glucose Carboxyhemoglobin Sodium Potassium Chloride BUN 118 H Creatinine 3.3 H Glucose 263 H POC Glucose 244 H 237 H Calcium Phosphorus Magnesium AST ALT Total Creatine Kinase CK-MB (CK-2) Troponin T Total Protein Albumin HDL Cholesterol TSH Free T3 Index Arterial Blood Glucose Arterial Blood Ionized Calcium Urine pH Urine WBC (Auto) Urine Creatinine Acetaminophen 04/30/21 04/30/21 04/30/21 17:26 17:45 23:51 WBC RBC Hgb Hct MCV RDW Plt Count Lymph % (Auto) Seg Neutrophils % Seg Neuts % (Manual) Lymphocytes % (Manual) Monocytes % (Manual) Seg Neutrophils # Seg Neutrophils # Man Lymphocytes # (Manual) Monocytes # (Manual) ABG pH POC ABG pCO2 POC ABG pO2 ABG Hemoglobin ABG Oxyhemoglobin ABG Sodium ABG Potassium ABG Chloride ABG Glucose Carboxyhemoglobin Sodium Potassium Chloride BUN Creatinine Glucose POC Glucose 193 H 197 H Calcium Phosphorus Magnesium AST ALT Total Creatine Kinase CK-MB (CK-2) Troponin T Total Protein Albumin HDL Cholesterol TSH Free T3 Index Arterial Blood Glucose Arterial Blood Ionized Calcium Urine pH Urine WBC (Auto) 48.0 H Urine Creatinine Acetaminophen 05/01/21 05/01/21 05/01/21 04:02 04:57 07:11 WBC 12.3 H RBC 2.83 L Hgb 8.8 L Hct 27.3 L MCV RDW Plt Count Lymph % (Auto) Seg Neutrophils % Seg Neuts % (Manual) 80.0 H Lymphocytes % (Manual) 5.0 L Monocytes % (Manual) Seg Neutrophils # Seg Neutrophils # Man 9.8 H Lymphocytes # (Manual) 0.6 L Monocytes # (Manual) ABG pH 7.466 H POC ABG pCO2 POC ABG pO2 61.4 L ABG Hemoglobin 9.0 L ABG Oxyhemoglobin 91.1 L ABG Sodium ABG Potassium ABG Chloride 110.0 H ABG Glucose 245 H Carboxyhemoglobin Sodium Potassium Chloride BUN Creatinine Glucose POC Glucose 193 H Calcium Phosphorus Magnesium AST ALT Total Creatine Kinase CK-MB (CK-2) Troponin T Total Protein Albumin HDL Cholesterol TSH Free T3 Index Arterial Blood Glucose 245 H Arterial Blood Ionized Calcium Urine pH Urine WBC (Auto) Urine Creatinine Acetaminophen 05/01/21 05/01/21 05/01/21 07:11 07:45 11:30 WBC RBC Hgb Hct MCV RDW Plt Count Lymph % (Auto) Seg Neutrophils % Seg Neuts % (Manual) Lymphocytes % (Manual) Monocytes % (Manual) Seg Neutrophils # Seg Neutrophils # Man Lymphocytes # (Manual) Monocytes # (Manual) ABG pH POC ABG pCO2 POC ABG pO2 ABG Hemoglobin ABG Oxyhemoglobin ABG Sodium ABG Potassium ABG Chloride ABG Glucose Carboxyhemoglobin Sodium 146 H Potassium Chloride 108.4 H BUN 122 H Creatinine 3.4 H Glucose 235 H POC Glucose 212 H 247 H Calcium Phosphorus Magnesium AST ALT Total Creatine Kinase CK-MB (CK-2) Troponin T Total Protein Albumin HDL Cholesterol TSH Free T3 Index Arterial Blood Glucose Arterial Blood Ionized Calcium Urine pH Urine WBC (Auto) Urine Creatinine Acetaminophen 05/01/21 05/01/21 05/01/21 11:31 17:42 23:49 WBC RBC Hgb Hct MCV RDW Plt Count Lymph % (Auto) Seg Neutrophils % Seg Neuts % (Manual) Lymphocytes % (Manual) Monocytes % (Manual) Seg Neutrophils # Seg Neutrophils # Man Lymphocytes # (Manual) Monocytes # (Manual) ABG pH POC ABG pCO2 POC ABG pO2 ABG Hemoglobin ABG Oxyhemoglobin ABG Sodium ABG Potassium ABG Chloride ABG Glucose Carboxyhemoglobin Sodium Potassium Chloride BUN Creatinine Glucose POC Glucose 258 H 171 H 167 H Calcium Phosphorus Magnesium AST ALT Total Creatine Kinase CK-MB (CK-2) Troponin T Total Protein Albumin HDL Cholesterol TSH Free T3 Index Arterial Blood Glucose Arterial Blood Ionized Calcium Urine pH Urine WBC (Auto) Urine Creatinine Acetaminophen 05/02/21 05/02/21 05/02/21 05:12 08:34 11:53 WBC RBC Hgb Hct MCV RDW Plt Count Lymph % (Auto) Seg Neutrophils % Seg Neuts % (Manual) Lymphocytes % (Manual) Monocytes % (Manual) Seg Neutrophils # Seg Neutrophils # Man Lymphocytes # (Manual) Monocytes # (Manual) ABG pH POC ABG pCO2 POC ABG pO2 ABG Hemoglobin ABG Oxyhemoglobin ABG Sodium ABG Potassium ABG Chloride ABG Glucose Carboxyhemoglobin Sodium 148 H Potassium Chloride 110.4 H BUN 124 H Creatinine 3.4 H Glucose 208 H POC Glucose 163 H 185 H Calcium 8.3 L Phosphorus Magnesium AST ALT Total Creatine Kinase CK-MB (CK-2) Troponin T Total Protein Albumin HDL Cholesterol TSH Free T3 Index Arterial Blood Glucose Arterial Blood Ionized Calcium Urine pH Urine WBC (Auto) Urine Creatinine Acetaminophen 05/02/21 05/02/21 05/03/21 17:28 23:32 03:57 WBC RBC Hgb Hct MCV RDW Plt Count Lymph % (Auto) Seg Neutrophils % Seg Neuts % (Manual) Lymphocytes % (Manual) Monocytes % (Manual) Seg Neutrophils # Seg Neutrophils # Man Lymphocytes # (Manual) Monocytes # (Manual) ABG pH 7.531 H POC ABG pCO2 31.0 L POC ABG pO2 64.3 L ABG Hemoglobin 9.0 L ABG Oxyhemoglobin 92.6 L ABG Sodium 145.7 H ABG Potassium ABG Chloride 112.0 H ABG Glucose 202 H Carboxyhemoglobin Sodium Potassium Chloride BUN Creatinine Glucose POC Glucose 147 H 202 H Calcium Phosphorus Magnesium AST ALT Total Creatine Kinase CK-MB (CK-2) Troponin T Total Protein Albumin HDL Cholesterol TSH Free T3 Index Arterial Blood Glucose 202 H Arterial Blood Ionized Calcium Urine pH Urine WBC (Auto) Urine Creatinine Acetaminophen 05/03/21 05/03/21 05/03/21 05:14 05:44 11:10 WBC RBC Hgb Hct MCV RDW Plt Count Lymph % (Auto) Seg Neutrophils % Seg Neuts % (Manual) Lymphocytes % (Manual) Monocytes % (Manual) Seg Neutrophils # Seg Neutrophils # Man Lymphocytes # (Manual) Monocytes # (Manual) ABG pH POC ABG pCO2 POC ABG pO2 ABG Hemoglobin ABG Oxyhemoglobin ABG Sodium ABG Potassium ABG Chloride ABG Glucose Carboxyhemoglobin Sodium 147 H Potassium Chloride 109.7 H BUN 121 H Creatinine 3.1 H Glucose 190 H POC Glucose 175 H 202 H Calcium Phosphorus Magnesium AST ALT Total Creatine Kinase CK-MB (CK-2) Troponin T Total Protein Albumin HDL Cholesterol TSH Free T3 Index Arterial Blood Glucose Arterial Blood Ionized Calcium Urine pH Urine WBC (Auto) Urine Creatinine Acetaminophen 05/03/21 05/04/21 05/04/21 23:58 04:57 04:57 WBC RBC 2.61 L Hgb 8.2 L Hct 25.4 L MCV 98 H RDW 15.3 H Plt Count Lymph % (Auto) Seg Neutrophils % Seg Neuts % (Manual) Lymphocytes % (Manual) Monocytes % (Manual) Seg Neutrophils # Seg Neutrophils # Man Lymphocytes # (Manual) Monocytes # (Manual) ABG pH POC ABG pCO2 POC ABG pO2 ABG Hemoglobin ABG Oxyhemoglobin ABG Sodium ABG Potassium ABG Chloride ABG Glucose Carboxyhemoglobin Sodium 147 H Potassium Chloride 111.0 H BUN 104 H Creatinine 2.8 H Glucose 179 H POC Glucose 131 H Calcium Phosphorus Magnesium AST ALT Total Creatine Kinase CK-MB (CK-2) Troponin T Total Protein Albumin HDL Cholesterol TSH Free T3 Index Arterial Blood Glucose Arterial Blood Ionized Calcium Urine pH Urine WBC (Auto) Urine Creatinine Acetaminophen 05/04/21 05/04/21 05/04/21 05:19 11:28 17:02 WBC RBC Hgb Hct MCV RDW Plt Count Lymph % (Auto) Seg Neutrophils % Seg Neuts % (Manual) Lymphocytes % (Manual) Monocytes % (Manual) Seg Neutrophils # Seg Neutrophils # Man Lymphocytes # (Manual) Monocytes # (Manual) ABG pH POC ABG pCO2 POC ABG pO2 ABG Hemoglobin ABG Oxyhemoglobin ABG Sodium ABG Potassium ABG Chloride ABG Glucose Carboxyhemoglobin Sodium Potassium Chloride BUN Creatinine Glucose POC Glucose 168 H 206 H 213 H Calcium Phosphorus Magnesium AST ALT Total Creatine Kinase CK-MB (CK-2) Troponin T Total Protein Albumin HDL Cholesterol TSH Free T3 Index Arterial Blood Glucose Arterial Blood Ionized Calcium Urine pH Urine WBC (Auto) Urine Creatinine Acetaminophen 05/04/21 05/05/21 05/05/21 23:13 04:55 05:15 WBC RBC Hgb Hct MCV RDW Plt Count Lymph % (Auto) Seg Neutrophils % Seg Neuts % (Manual) Lymphocytes % (Manual) Monocytes % (Manual) Seg Neutrophils # Seg Neutrophils # Man Lymphocytes # (Manual) Monocytes # (Manual) ABG pH POC ABG pCO2 POC ABG pO2 ABG Hemoglobin ABG Oxyhemoglobin ABG Sodium ABG Potassium ABG Chloride ABG Glucose Carboxyhemoglobin Sodium Potassium Chloride BUN 91 H Creatinine 2.4 H Glucose 255 H POC Glucose 232 H 235 H Calcium Phosphorus Magnesium AST ALT Total Creatine Kinase CK-MB (CK-2) Troponin T Total Protein Albumin HDL Cholesterol TSH Free T3 Index Arterial Blood Glucose Arterial Blood Ionized Calcium Urine pH Urine WBC (Auto) Urine Creatinine Acetaminophen 05/05/21 05/05/21 05/05/21 11:41 17:46 23:40 WBC RBC Hgb Hct MCV RDW Plt Count Lymph % (Auto) Seg Neutrophils % Seg Neuts % (Manual) Lymphocytes % (Manual) Monocytes % (Manual) Seg Neutrophils # Seg Neutrophils # Man Lymphocytes # (Manual) Monocytes # (Manual) ABG pH POC ABG pCO2 POC ABG pO2 ABG Hemoglobin ABG Oxyhemoglobin ABG Sodium ABG Potassium ABG Chloride ABG Glucose Carboxyhemoglobin Sodium Potassium Chloride BUN Creatinine Glucose POC Glucose 199 H 231 H 224 H Calcium Phosphorus Magnesium AST ALT Total Creatine Kinase CK-MB (CK-2) Troponin T Total Protein Albumin HDL Cholesterol TSH Free T3 Index Arterial Blood Glucose Arterial Blood Ionized Calcium Urine pH Urine WBC (Auto) Urine Creatinine Acetaminophen 05/06/21 05/06/21 05/06/21 04:00 05:37 07:12 WBC RBC Hgb Hct MCV RDW Plt Count Lymph % (Auto) Seg Neutrophils % Seg Neuts % (Manual) Lymphocytes % (Manual) Monocytes % (Manual) Seg Neutrophils # Seg Neutrophils # Man Lymphocytes # (Manual) Monocytes # (Manual) ABG pH 7.464 H POC ABG pCO2 POC ABG pO2 74.2 L ABG Hemoglobin 10.5 L ABG Oxyhemoglobin ABG Sodium ABG Potassium ABG Chloride 110.0 H ABG Glucose 214 H Carboxyhemoglobin 0.4 L Sodium 146 H Potassium Chloride 110.4 H BUN 82 H Creatinine 2.3 H Glucose 154 H POC Glucose 165 H Calcium Phosphorus Magnesium AST ALT Total Creatine Kinase CK-MB (CK-2) Troponin T Total Protein Albumin HDL Cholesterol TSH Free T3 Index Arterial Blood Glucose 214 H Arterial Blood Ionized Calcium Urine pH Urine WBC (Auto) Urine Creatinine Acetaminophen 05/06/21 05/06/21 05/07/21 17:11 23:40 05:26 WBC RBC Hgb Hct MCV RDW Plt Count Lymph % (Auto) Seg Neutrophils % Seg Neuts % (Manual) Lymphocytes % (Manual) Monocytes % (Manual) Seg Neutrophils # Seg Neutrophils # Man Lymphocytes # (Manual) Monocytes # (Manual) ABG pH POC ABG pCO2 POC ABG pO2 ABG Hemoglobin ABG Oxyhemoglobin ABG Sodium ABG Potassium ABG Chloride ABG Glucose Carboxyhemoglobin Sodium Potassium Chloride BUN Creatinine Glucose POC Glucose 126 H 165 H 156 H Calcium Phosphorus Magnesium AST ALT Total Creatine Kinase CK-MB (CK-2) Troponin T Total Protein Albumin HDL Cholesterol TSH Free T3 Index Arterial Blood Glucose Arterial Blood Ionized Calcium Urine pH Urine WBC (Auto) Urine Creatinine Acetaminophen 05/07/21 05/07/21 05/07/21 08:20 08:20 11:35 WBC RBC 2.58 L Hgb 7.9 L Hct 24.9 L MCV RDW Plt Count Lymph % (Auto) Seg Neutrophils % Seg Neuts % (Manual) Lymphocytes % (Manual) Monocytes % (Manual) Seg Neutrophils # Seg Neutrophils # Man Lymphocytes # (Manual) Monocytes # (Manual) ABG pH POC ABG pCO2 POC ABG pO2 ABG Hemoglobin ABG Oxyhemoglobin ABG Sodium ABG Potassium ABG Chloride ABG Glucose Carboxyhemoglobin Sodium Potassium Chloride 108.4 H BUN 81 H Creatinine 2.4 H Glucose 133 H POC Glucose 112 H Calcium Phosphorus Magnesium AST ALT Total Creatine Kinase CK-MB (CK-2) Troponin T Total Protein Albumin HDL Cholesterol TSH Free T3 Index Arterial Blood Glucose Arterial Blood Ionized Calcium Urine pH Urine WBC (Auto) Urine Creatinine Acetaminophen 05/07/21 05/07/21 05/08/21 17:51 23:27 03:05 WBC RBC Hgb Hct MCV RDW Plt Count Lymph % (Auto) Seg Neutrophils % Seg Neuts % (Manual) Lymphocytes % (Manual) Monocytes % (Manual) Seg Neutrophils # Seg Neutrophils # Man Lymphocytes # (Manual) Monocytes # (Manual) ABG pH 7.454 H POC ABG pCO2 POC ABG pO2 82.1 L ABG Hemoglobin 8.1 L ABG Oxyhemoglobin ABG Sodium ABG Potassium 4.8 H ABG Chloride 111.0 H ABG Glucose 194 H Carboxyhemoglobin Sodium Potassium Chloride BUN Creatinine Glucose POC Glucose 136 H 133 H Calcium Phosphorus Magnesium AST ALT Total Creatine Kinase CK-MB (CK-2) Troponin T Total Protein Albumin HDL Cholesterol TSH Free T3 Index Arterial Blood Glucose 194 H Arterial Blood Ionized Calcium Urine pH Urine WBC (Auto) Urine Creatinine Acetaminophen 05/08/21 05/08/21 05/08/21 05:52 07:07 07:07 WBC 12.0 H RBC 2.94 L Hgb 9.0 L Hct 28.5 L MCV RDW Plt Count Lymph % (Auto) Seg Neutrophils % Seg Neuts % (Manual) Lymphocytes % (Manual) Monocytes % (Manual) Seg Neutrophils # Seg Neutrophils # Man Lymphocytes # (Manual) Monocytes # (Manual) ABG pH POC ABG pCO2 POC ABG pO2 ABG Hemoglobin ABG Oxyhemoglobin ABG Sodium ABG Potassium ABG Chloride ABG Glucose Carboxyhemoglobin Sodium Potassium Chloride BUN 73 H Creatinine 2.2 H Glucose 211 H POC Glucose 194 H Calcium Phosphorus Magnesium AST ALT Total Creatine Kinase CK-MB (CK-2) Troponin T Total Protein Albumin HDL Cholesterol TSH Free T3 Index Arterial Blood Glucose Arterial Blood Ionized Calcium Urine pH Urine WBC (Auto) Urine Creatinine Acetaminophen 05/08/21 05/08/21 05/08/21 11:19 17:20 23:22 WBC RBC Hgb Hct MCV RDW Plt Count Lymph % (Auto) Seg Neutrophils % Seg Neuts % (Manual) Lymphocytes % (Manual) Monocytes % (Manual) Seg Neutrophils # Seg Neutrophils # Man Lymphocytes # (Manual) Monocytes # (Manual) ABG pH POC ABG pCO2 POC ABG pO2 ABG Hemoglobin ABG Oxyhemoglobin ABG Sodium ABG Potassium ABG Chloride ABG Glucose Carboxyhemoglobin Sodium Potassium Chloride BUN Creatinine Glucose POC Glucose 231 H 251 H 295 H Calcium Phosphorus Magnesium AST ALT Total Creatine Kinase CK-MB (CK-2) Troponin T Total Protein Albumin HDL Cholesterol TSH Free T3 Index Arterial Blood Glucose Arterial Blood Ionized Calcium Urine pH Urine WBC (Auto) Urine Creatinine Acetaminophen 05/09/21 05/09/21 05/09/21 05:39 07:36 11:39 WBC RBC Hgb Hct MCV RDW Plt Count Lymph % (Auto) Seg Neutrophils % Seg Neuts % (Manual) Lymphocytes % (Manual) Monocytes % (Manual) Seg Neutrophils # Seg Neutrophils # Man Lymphocytes # (Manual) Monocytes # (Manual) ABG pH POC ABG pCO2 POC ABG pO2 ABG Hemoglobin ABG Oxyhemoglobin ABG Sodium ABG Potassium ABG Chloride ABG Glucose Carboxyhemoglobin Sodium Potassium Chloride BUN 64 H Creatinine 2.2 H Glucose 308 H POC Glucose 240 H 330 H Calcium Phosphorus Magnesium AST ALT Total Creatine Kinase CK-MB (CK-2) Troponin T Total Protein Albumin HDL Cholesterol TSH Free T3 Index Arterial Blood Glucose Arterial Blood Ionized Calcium Urine pH Urine WBC (Auto) Urine Creatinine Acetaminophen 05/09/21 05/09/21 05/10/21 17:37 23:15 05:15 WBC RBC Hgb Hct MCV RDW Plt Count Lymph % (Auto) Seg Neutrophils % Seg Neuts % (Manual) Lymphocytes % (Manual) Monocytes % (Manual) Seg Neutrophils # Seg Neutrophils # Man Lymphocytes # (Manual) Monocytes # (Manual) ABG pH POC ABG pCO2 POC ABG pO2 ABG Hemoglobin ABG Oxyhemoglobin ABG Sodium ABG Potassium ABG Chloride ABG Glucose Carboxyhemoglobin Sodium Potassium Chloride BUN Creatinine Glucose POC Glucose 174 H 152 H 146 H Calcium Phosphorus Magnesium AST ALT Total Creatine Kinase CK-MB (CK-2) Troponin T Total Protein Albumin HDL Cholesterol TSH Free T3 Index Arterial Blood Glucose Arterial Blood Ionized Calcium Urine pH Urine WBC (Auto) Urine Creatinine Acetaminophen 05/10/21 05/10/21 05/10/21 05:36 11:29 17:35 WBC RBC Hgb Hct MCV RDW Plt Count Lymph % (Auto) Seg Neutrophils % Seg Neuts % (Manual) Lymphocytes % (Manual) Monocytes % (Manual) Seg Neutrophils # Seg Neutrophils # Man Lymphocytes # (Manual) Monocytes # (Manual) ABG pH POC ABG pCO2 POC ABG pO2 ABG Hemoglobin ABG Oxyhemoglobin ABG Sodium ABG Potassium ABG Chloride ABG Glucose Carboxyhemoglobin Sodium Potassium Chloride 110.7 H BUN 54 H Creatinine 2.2 H Glucose 164 H POC Glucose 202 H 109 H Calcium Phosphorus Magnesium AST ALT Total Creatine Kinase CK-MB (CK-2) Troponin T Total Protein Albumin HDL Cholesterol TSH Free T3 Index Arterial Blood Glucose Arterial Blood Ionized Calcium Urine pH Urine WBC (Auto) Urine Creatinine Acetaminophen 05/11/21 05/11/21 05/11/21 05:38 07:10 11:54 WBC RBC Hgb Hct MCV RDW Plt Count Lymph % (Auto) Seg Neutrophils % Seg Neuts % (Manual) Lymphocytes % (Manual) Monocytes % (Manual) Seg Neutrophils # Seg Neutrophils # Man Lymphocytes # (Manual) Monocytes # (Manual) ABG pH POC ABG pCO2 POC ABG pO2 ABG Hemoglobin ABG Oxyhemoglobin ABG Sodium ABG Potassium ABG Chloride ABG Glucose Carboxyhemoglobin Sodium Potassium 5.2 H Chloride 108.8 H BUN 50 H Creatinine 2.2 H Glucose 176 H POC Glucose 135 H 219 H Calcium Phosphorus Magnesium AST ALT Total Creatine Kinase CK-MB (CK-2) Troponin T Total Protein Albumin HDL Cholesterol TSH Free T3 Index Arterial Blood Glucose Arterial Blood Ionized Calcium Urine pH Urine WBC (Auto) Urine Creatinine Acetaminophen 05/11/21 05/11/21 05/12/21 17:51 22:50 04:51 WBC RBC Hgb Hct MCV RDW Plt Count Lymph % (Auto) Seg Neutrophils % Seg Neuts % (Manual) Lymphocytes % (Manual) Monocytes % (Manual) Seg Neutrophils # Seg Neutrophils # Man Lymphocytes # (Manual) Monocytes # (Manual) ABG pH POC ABG pCO2 POC ABG pO2 ABG Hemoglobin ABG Oxyhemoglobin ABG Sodium ABG Potassium ABG Chloride ABG Glucose Carboxyhemoglobin Sodium Potassium Chloride 108.2 H BUN 49 H Creatinine 2.2 H Glucose 161 H POC Glucose 169 H 118 H Calcium Phosphorus Magnesium AST ALT Total Creatine Kinase CK-MB (CK-2) Troponin T Total Protein Albumin HDL Cholesterol TSH Free T3 Index Arterial Blood Glucose Arterial Blood Ionized Calcium Urine pH Urine WBC (Auto) Urine Creatinine Acetaminophen 05/12/21 05/12/21 05:05 10:31 WBC RBC Hgb Hct MCV RDW Plt Count Lymph % (Auto) Seg Neutrophils % Seg Neuts % (Manual) Lymphocytes % (Manual) Monocytes % (Manual) Seg Neutrophils # Seg Neutrophils # Man Lymphocytes # (Manual) Monocytes # (Manual) ABG pH 7.498 H POC ABG pCO2 POC ABG pO2 75.8 L ABG Hemoglobin 7.3 L ABG Oxyhemoglobin 93.4 L ABG Sodium ABG Potassium ABG Chloride 108.0 H ABG Glucose 199 H Carboxyhemoglobin 1.6 H Sodium Potassium Chloride BUN Creatinine Glucose POC Glucose 160 H Calcium Phosphorus Magnesium AST ALT Total Creatine Kinase CK-MB (CK-2) Troponin T Total Protein Albumin HDL Cholesterol TSH Free T3 Index Arterial Blood Glucose 199 H Arterial Blood Ionized Calcium Urine pH Urine WBC (Auto) Urine Creatinine Acetaminophen Chest x-ray: image reviewed (no new infiltrate) Allied health notes reviewed: nursing
--- NOTE | 2021-05-12 16:20 | Progress Note ---
Assessment and Plan This is a 80-year-old female with HTN, DM, IL, breast CA s/p double mastectomy, TIA who presented with hypoglycemia, AMS who was admitted with SIRS, symptomatic bradycardia, acute metabolic encephalopathy, acute hypoxic respiratory failure, elevated TSH, hyperglycemia, hyponatremia, hypokalemia, ROJELIO and rhabdomyolysis Acute metabolic encephalopathy-persist Acute hypoxic respiratory failure (extubated 04/20)- Re-intubated secondary to S tridor and paradoxical breathing - s/p trach and PEG First-degree heart block Resolved ileus versus mechanical obstruction Acute kidney injury with vasomotor nephropathy UTI, Pseudomonas/ Earline Elevated TSH Mild rhabdomyolysis Hypertension Diabetes mellitus with hyperglycemia on admission CAD Hypothyroidism Chronic illness debilitymyopathy Obesity -CCM, nephrology, neurology, cardiology consulted, patient recommendations -S/p D10 and D5W gtt, on TF -S/p IV calcium gluconate, regular insulin, D50 -S/p transcutaneous pacing, intermittent demand pacer in place -Renal ultrasound findings consistent with acute on chronic kidney disease, mildly complex right renal cyst -Blood pressure monitoring per protocol -Accu-Cheks every 6, SSI, long acting insulin -IV hydralazine as needed -04/25 EEG is mildly abnormal with mild slowing noted throughout the recording, suggestive of mild cortical dysfunction and/or drug effect -04/20 EEG shows mildly abnormal record due to diffuse background slowing noted throughout the recording, intermittent motion artifact, patient intubated and sedated at time of study, no sign of seizures as well epilepticus noted, possible toxic metabolic encephalopathy, drug effect, possible postictal state cannot be totally excluded. -Avoid ACEi/ARB in setting of ROJELIO -Avoid AV arron blocking agents -Avoid nephrotoxic agents and renally dose medications -BB, add home antihtn regimen as needed -TSH 14.1, T4 4.1, T3 1.1-started on levothyroxine -As needed racemic epinephrine -S/p steroids -s/p Antibiotic therapy -Trend CBC, BMP DVT/GI prophylaxis: Heparin subcu, PPI, SCDs to bilateral lower extremities while in bed Disposition: ICU The high probability of a clinically significant, sudden or life threatening deterioration of the [PULMONARY, CARDIAC, RENAL] system(s) required my full and direct attention, intervention and personal management. The aggregate critical care time was [35] minutes. This time is in addition to time spent performing reported procedures but includes the following: [X] Data Review and interpretation [X] Patient assessment and monitoring of vital signs [X] Documentation [X] Medication orders and management Brief history This is a 80-year-old female with hypertension, diabetes mellitus, IL, breast cancer s/p double mastectomy, and a TIA who presented with hypoglycemia and altered mental status on 04/15 via EMS. Per EMS patient was unresponsive on their arrival and her blood glucose was 38 and she received 1 amp of dextrose patient continued to be unresponsive and only moaned with her eyes deviating to the left. Work-up in the emergency department revealed SIRS, symptomatic bradycardia, acute metabolic encephalopathy, acute hypoxic respiratory failure, elevated TSH, hyperglycemia, hyponatremia, hyperkalemia, acute kidney injury with ATN, and rhabdomyolysis Daily clinical course; 04/16: Neurology consulted, COVID-19 PCR negative, D10 drip decreased and alicia ntually discontinued by [facility] and started on D5W for 1 L. Hydralazine as needed. Patient had hyper kalemia today and was treated with D50, insulin and Kayexalate. This time examination patient is on assist control tidal volume 450, rate of 16, PEEP of 6 and 25% FiO2. 04/17: Patient started on low-dose beta-angel per cardiology, CPAP trial again per [facility], BUN/creatinine holding steady and hypochloremia/hyponatremia slightly improved and hypokalemia has resolved. This morning a KUB was obtained which was concerning for ileus versus mechanical obstruction and surgery was consulted. Patient was made n.p.o. and NG tube placed to wall suction. Patient was given suppository. Per RN patient did not have a BM even though she was given Kayexalate yesterday. Will obtain a KUB in the a.m. Neurology was consulted yesterday and will await further recommendations. Nephew updated at bedside today, Carlos Romero. 04/18: Neurology has ordered EEG/MRI B, [facility] continues to wean MV. Persistent low grade temperature so we will obtain BCx2/UA. Patient has improving leukocytosis, hyponatremia, renal function studies and hypochloremia. She has hypokalemia today which is being repleted. Surgery has signed off today and has okayed resumption of TF. [facility] will trial CPAP for longer today and plans to attempt extubation in AM. Family has requested transfer to [facility] and Dr. Gordon will attempt to contact transfer center. I updated her nephew, Carlos Romero over the phone today abouyt current events and update on transfer ([facility] will conduct a utilization review) 04/19: This morning patient is on CPAP trial at the time of examination, noted to be hypertensive and metoprolol increased to home dose, started on synthroid by CCM, lantus started re hyperglycemia, MRI completed with no acute findings. Severe hypokalemia (repleted and Mg pending). CCM will contact CPAP trial again today with possible trial extubation tomorrow. 04/20: Patient's leukocytosis and kidney function tests continue to improve. Patient is hypertensive overnight we will restart home hydralazine. [facility] plans to extubate patient today. Family is attempting to transfer to another facility. EEG pending, RT will atmept to contact audiovisual tech. Urine culture grew gram negative rods. Increase in lantus 04/21: Increase in Lantus, repleted phos. Patient has started this afternoon and was given racemic epinephrine and started on steroids. Patient will have BiPAP as needed. We will recheck BMP in the a.m. renal function studies continues to decrease. Patient has been hypertensive on evaluation regimen has been changed . 04/22: Lantus increased for hyperglycemia and add amlodipine for better BP control. Patient is on steroids. OT suctioned by RN with catheter in oral care kit and received copious amounts of secretions. Cr continues to decrease. Culture grew Pseudomonas and was changed in accordance to sensitivity. Kerr removed today after clearance from nephrology. 04/23: MRI of the brain was done and unremarkable. Will obtain reconsult to nephrology for further assistance as patient remains in profound encephalopathy despite improvement of blood sugar. Will repeat chest x-ray as patient does have significant congestion physical exam. Tube feeds still ongoing. Continue aspiration precautions. Continue antibiotics when completed for Pseudomonas management 04/24: Neurology input noted, patient unfortunately with no improvement mental status [place], continues with congestion, will defer with Soft Water Mechanic for lasix in the setting of renal failure. will give kayexlate for hyperkalemia, still moans and groans, mittens in place. 04/25: Patient currently intubated, on restraints for safety, Profund encephalopathy persist, although awake she is not following any commands, Call placed to [facility] to see if they will accept transfer for ENT evaluation, while CT neck was negative, it was degraded by motion and unable to determent why patient had this stridor, Racemic Epinephrine was given, [facility] is on ICU saturation, but will call back with an ENT to discuss case. Renal function mildly worse, continue to monitor. Per cardiology, no further arrhythmias noted since admission. Given short duration of atrial fibrillation, along with pt's age, renal fxn, and other co- morbidities,...will resume additional medical therapies for underlying severe multi-vessel CAD (bASA & Plavix). Pt has previously declined intervention of known lesions as per her Primary Rail Car Driver. 04/26: Now with febrile illness, ?developing infection, start on empiric abx, check lactate level, blood cultures, continue management per Coding Director, Monitor leukocytosis, agree with Trach, family updated about denials in transfer request from outside hospitals. 04/27: WBC improving some, still with fever despite antibotics, ID consulted. CXR clear, continue current management, Trach will be planned if ok with family. Bl ood sugar remains elevated, will adjust insulin LANTUS to 40 units. Patient had previously completed Cefepime. Mental status remains unchanged, still moves upper ext. continue restraints 04/28: Continue supportive care. No new fever noted. Critical care physician will determine if patient should be have a trial of extubation again or if we should proceed straight to trach. Again continue to monitor mental status for complete improvement. 04/29: Per Coding Director discussion with family, will proceed to Tracheostomy, Patients mental status still fluctuating, Continue current management. Surgeon consulted. 04/30: General surgery consulted for trach, continue to trend CBC and BMP. Kidney function slightly worsened today. Increase in Lantus. Tmax 100.2, per ID will consider imaging if leukocytosis remains elevated with fevers. Plavix held for possible tracheostomy next week. 05/01: Patient fever curve is trending down with improving leukocytosis. Patient renal function worsened today. She remains hyperglycemic and her Lantus was increased to her home dose of Novolin 70/30. Patient was rate controlled yesterday due to T-max of 101. She remains on CMV tidal volume 450, rate of 10, PEEP of 6 and 30% FiO2. We will increase the water flushes given slight hypernatremia. Dr. Andrea updated nephew (Carlos) at bedside. CPAP trails. 05/02: Patient's hypernatremia and hyperchloremia slightly worsened and femur fractures were increased. Kidney functions remain the same however BUN is in the 100s. Nephrology is following. Kerr catheter was removed. Awaiting trach placement with possibility on Friday. 05/03: Patient grew Earline in her urine culture however per ID and the Kerr was already exchanged. Patient is on cefepime and Flagyl. Plavix still on hold awaiting trach. CCM started the patient on half-normal saline at 75 mL/h for 2 L related to azatoma and hypernatremia. Patient mental status continues to wax and wane. Creatinine is 3.1 today from 3.4 yesterday. Patient had a bowel movement today. Patient remains hyperglycemic and Lantus was changed from a.m. to p.m.. 05/04: Patient's renal function is improving, surgery obtain consent for trach/PEG scheduled for 05/07, antibiotics to end tomorrow. We will obtain BMP in the a.m. Lantus dosage change from AC to at bedtime in hopes of better glycemic control. 05/05: Patient Lantus dose is changed to twice daily in hopes of better glycemic control. Awaiting surgical procedure hopefully on Friday. Patient's BUN/creatinine improved and hypernatremia has resolved. 05/06: Patient has slight hypernatremia and hyperchloremia and improvement to BUN/creatinine. Better glycemic control. Awaiting trach on Friday. NGT was displaced but now replaced and TF resumed. 05/07 This is a 80-year-old female with HTN, DM, IL, breast CA s/p double mastectomy, TIA who presented with hypoglycemia, AMS who was admitted with SIRS, symptomatic bradycardia, acute metabolic encephalopathy, acute hypoxic respiratory failure, elevated TSH, hyperglycemia, hyponatremia, hypokalemia, ROJELIO and rhabdomyolysis. She is for Trach and PEG today. 05/08: s/p trach and PEG placement yesterday. cont to monitor, wean off from vent as tolertaed 05/09: Patient started on tube feeding and tolerating well. Currently on CPAP setting with newly placed trach. Discussed with case management and patient would need placement. Continue supportive care and follow clinically. 05/10: Continue supportive care, patient is tolerating tube feeding diet. Remains on CPAP with trach. Pending LTAC placement. 05/11: Continue supportive care, patient is tolerating tube feeding diet. Remains on CPAP with trach. Plan to wean off from Vent as tolerates and to place on t-piece. 05/12; patient placed on t-piece today, tolerating TF, cont to monitor clinically. follow CBC/BMP Subjective Date of service: 05/12/21 Principal diagnosis: Ac. resp failure; AMS; Hypoglycemia; ROJELIO; Hyperkalemia; DM II Interval history: Patient seen and examined. Medical records and medication list reviewed. No acute event overnight noted by the RN. Patient remains on trach tube, started on tube feeding - tolerating well Discussed plan of care at bedside with patient's RN. Objective - Exam Narrative Exam: General appearance: Present: no acute distress, intubated on mechanical ventilation - EENT Eyes: Present: PERRL, EOM intact - Neck Neck: Present: normal ROM, trach in place - Respiratory Respiratory effort: normal Respiratory: bilateral: diminished - Cardiovascular Rhythm: regular Heart Sounds: Present: S1 & S2. Absent: systolic murmur, diastolic murmur - Extremities Extremities: no ischemia, pulses intact, pulses symmetrical, normal temperature, normal color Peripheral Pulses: within normal limits - Abdominal General gastrointestinal: soft, non-tender, non-distended, normal bowel sounds - Integumentary Integumentary: Present: warm, dry - Psychiatric Psychiatric: cooperative - Neurologic Neurologic: moves all extremities - Constitutional Vitals: Vital Signs - 12hr 05/12/21 05/12/21 05/12/21 05:00 06:00 07:00 Temperature Pulse Rate 83 81 79 Pulse Rate [ Anterior Bilateral Throughout] Pulse Rate [ From Monitor] Respiratory 16 21 22 Rate Respiratory Rate [Anterior Bilateral Throughout] Blood Pressure 133/56 133/56 141/51 O2 Sat by Pulse 100 100 100 Oximetry O2 Sat by Pulse Oximetry [ Assessment] 05/12/21 05/12/21 05/12/21 07:52 07:55 08:00 Temperature 98.6 F Pulse Rate 80 88 Pulse Rate [ Anterior Bilateral Throughout] Pulse Rate [ 88 From Monitor] Respiratory 24 Rate Respiratory Rate [Anterior Bilateral Throughout] Blood Pressure 141/51 123/48 O2 Sat by Pulse 100 100 Oximetry O2 Sat by Pulse 100 Oximetry [ Assessment] 0605/12/21 05/12/21 08:14 08:24 09:00 Temperature Pulse Rate 79 84 Pulse Rate [ 83 Anterior Bilateral Throughout] Pulse Rate [ From Monitor] Respiratory 17 Rate Respiratory 18 Rate [Anterior Bilateral Throughout] Blood Pressure 123/48 123/48 O2 Sat by Pulse 100 99 Oximetry O2 Sat by Pulse Oximetry [ Assessment] 05/12/21 05/12/21 05/12/21 09:21 10:00 11:00 Temperature Pulse Rate 90 86 92 H Pulse Rate [ Anterior Bilateral Throughout] Pulse Rate [ From Monitor] Respiratory 20 26 H Rate Respiratory Rate [Anterior Bilateral Throughout] Blood Pressure 129/48 129/48 129/48 O2 Sat by Pulse 99 99 Oximetry O2 Sat by Pulse Oximetry [ Assessment] 05/12/21 05/12/21 05/12/21 11:58 12:00 14:29 Temperature 99.1 F Pulse Rate 76 77 81 Pulse Rate [ Anterior Bilateral Throughout] Pulse Rate [ 77 From Monitor] Respiratory 28 H Rate Respiratory Rate [Anterior Bilateral Throughout] Blood Pressure 165/80 143/71 114/49 O2 Sat by Pulse 100 100 Oximetry O2 Sat by Pulse Oximetry [ Assessment] 05/12/21 15:29 Temperature Pulse Rate 76 Pulse Rate [ Anterior Bilateral Throughout] Pulse Rate [ From Monitor] Respiratory Rate Respiratory Rate [Anterior Bilateral Throughout] Blood Pressure 117/48 O2 Sat by Pulse 100 Oximetry O2 Sat by Pulse Oximetry [ Assessment] - Labs CBC & Chem 7: 05/08/21 07:07 05/12/21 04:51 Labs: Abnormal lab results 05/11/21 05/11/21 05/12/21 Range/Units 17:51 22:50 04:51 ABG pH (7.320-7.450) POC ABG pO2 (83-108) mmHg ABG Hemoglobin (12.0-17.5) ABG Oxyhemoglobin (94-98) ABG Chloride (98-107) mmol/L ABG Glucose (65-95) mg/dL Carboxyhemoglobin (0.5-1.5) Chloride 108.2 H (98-107) mmol/L BUN 49 H (7-17) mg/dL Creatinine 2.2 H (0.6-1.2) mg/dL Glucose 161 H (65-100) mg/dL POC Glucose 169 H 118 H (70-105) mg/dL Arterial Blood Glucose (65-95) mg/dL 05/12/21 05/12/21 05/12/21 Range/Units 05:05 10:31 11:50 ABG pH 7.498 H (7.320-7.450) POC ABG pO2 75.8 L (83-108) mmHg ABG Hemoglobin 7.3 L (12.0-17.5) ABG Oxyhemoglobin 93.4 L (94-98) ABG Chloride 108.0 H (98-107) mmol/L ABG Glucose 199 H (65-95) mg/dL Carboxyhemoglobin 1.6 H (0.5-1.5) Chloride (98-107) mmol/L BUN (7-17) mg/dL Creatinine (0.6-1.2) mg/dL Glucose (65-100) mg/dL POC Glucose 160 H 160 H (70-105) mg/dL Arterial Blood Glucose 199 H (65-95) mg/dL HEART Score - HEART Score Troponin: Troponin T 0.065 ng/mL (0.00-0.029) H 04/20/21 03:32
[2021-05-12] MEDS: LATANOPROST 0.005% OPHTH SOLN 2.5 ML OU SCH (18:01)
[2021-05-12] MEDS: PRAVASTATIN 20 MG TAB PO SCH (21:42)
[2021-05-13] MEDS: hydrALAZINE 25 MG TAB PO SCH ×4 (00:57→21:10)
[2021-05-13] MEDS: INSULIN LISPRO 100 UNIT/ML SUB-Q SCH ×4 (00:57→18:34)
[2021-05-13] MEDS: ACETYLCYSTEINE 20% 200 MG/1 ML *FOR INHALATION USE INHALATION SCH ×3 (05:56→15:29)
[2021-05-13] MEDS: LEVOTHYROXINE 25 MCG TAB PO SCH (05:57)
[2021-05-13 07:08] LABS: Calcium 9.6 mg/dL (8.4-10.2)
[2021-05-13] MEDS: ALBUTEROL 2.5 MG/3 ML NEBU IH PRN ×2 (07:48→15:29)
[2021-05-13] MEDS ORDERED: LORazepam 2 MG/ML VIAL IV PRN (09:30)
[2021-05-13] MEDS ORDERED: fentaNYL 100 MCG/2 ML INJ IV PRN (09:30)
[2021-05-13] MEDS ORDERED: fentaNYL DRIP Premix 2,000 MCG/100 ML BAG IV SCH (10:00)
[2021-05-13] MEDS: METOPROLOL TARTRATE 25 MG TAB PO SCH ×2 (10:11→21:11)
[2021-05-13] MEDS: amLODIPine 10 MG TAB PO SCH (10:12)
[2021-05-13] MEDS: TAMSULOSIN 0.4 MG CAP PO SCH (10:12)
[2021-05-13] MEDS: DOCUSATE SODIUM 100 MG/10 ML ORAL LIQD PO SCH ×2 (10:12→21:12)
[2021-05-13] MEDS: INSULIN NPH/REGULAR 70/30 INJ SUB-Q SCH ×2 (10:12→18:33)
[2021-05-13] MEDS: ASPIRIN 81 MG TAB CHEW PO SCH (10:12)
[2021-05-13] MEDS: HEPARIN 5,000 UNIT/1 ML VIAL SUB-Q SCH ×2 (10:13→21:10)
[2021-05-13] MEDS: MINERAL OIL/PETROLATUM, WHITE OPHTH OINT 3.5 GM OU PRN (10:26)
[2021-05-13] MEDS: TIMOLOL 0.5% OPHTH SOLN 5 ML OU SCH (10:27)
[2021-05-13] MEDS: BRIMONIDINE 0.15% OPHTH SOLN OU SCH ×2 (10:27→21:14)
[2021-05-13] MEDS: FAMOTIDINE 20 MG TAB PO SCH (10:31)
--- NOTE | 2021-05-13 12:11 | Progress Note ---
Assessment and Plan 1. Acute kidney injury: Vasomotor ROJELIO. ATN likely. Renal US negative for hydro. Baseline renal function is unknown. Monitor renal function. Non-oliguric. On 12/02 NS. BUN and creatinine level continue to improve. Renal prognosis is guarded. Avoid nephrotoxic agents. Meds dosage based on GFR. 2. FEN: Hypokalemia, improved, monitor. Hypernatremia, improved, monitor. Monitor lytes and volume status. 3. Acute hypoxemic respiratory failure: Extubated, re-intubated 04/24. Trached 05/07. T-piece trial. 4. Acute encephalopathy: MRI brain negative. Seen by Neuro. 5. UTI: Pseudomonas and Earline. 6. Hypertension. 7. DM type 2. 8. Mild rhabdomyolysis. 9. Mildly complex R renal cyst. Subjective: Patient was seen and examined at the bedside. Examination: General appearance: well-developed, appears stated age, trached HEENT: atraumatic Neck: trached Respiratory: Coarse breath sounds heard Heart: S1S2, no murmur Abdomen: soft, obese, bowel sounds heard, NT, PEG tube noted Integumentary: no obvious rash Neurologic: stuporous Ext: no edema noted : Kerr catheter Subjective Date of service: 05/13/21 Principal diagnosis: Ac. resp failure; AMS; Hypoglycemia; ROJELIO; Hyperkalemia; DM II Objective - Vital Signs Vital signs: Vital Signs - 12hr 05/13/21 05/13/21 05/13/21 01:00 02:00 03:00 Temperature Pulse Rate 72 74 71 Pulse Rate [ Anterior Bilateral Throughout] Pulse Rate [ From Monitor] Respiratory 20 17 21 Rate Respiratory Rate [Anterior Bilateral Throughout] Blood Pressure 124/41 124/50 119/51 O2 Sat by Pulse 98 100 100 Oximetry O2 Sat by Pulse Oximetry [ Assessment] 05/13/21 05/13/21 05/13/21 03:47 04:00 05:00 Temperature 98.8 F Pulse Rate 74 74 74 Pulse Rate [ Anterior Bilateral Throughout] Pulse Rate [ 77 From Monitor] Respiratory 20 17 Rate Respiratory Rate [Anterior Bilateral Throughout] Blood Pressure 119/51 124/48 121/49 O2 Sat by Pulse 100 98 99 Oximetry O2 Sat by Pulse Oximetry [ Assessment] 05/13/21 05/13/21 05/13/21 05:57 06:00 07:00 Temperature 98.5 F Pulse Rate 85 81 Pulse Rate [ Anterior Bilateral Throughout] Pulse Rate [ From Monitor] Respiratory 18 Rate Respiratory Rate [Anterior Bilateral Throughout] Blood Pressure 121/79 121/49 O2 Sat by Pulse 100 Oximetry O2 Sat by Pulse Oximetry [ Assessment] 05/13/21 05/13/21 05/13/21 07:48 09:13 10:11 Temperature Pulse Rate 71 81 89 Pulse Rate [ 81 Anterior Bilateral Throughout] Pulse Rate [ From Monitor] Respiratory Rate Respiratory 16 Rate [Anterior Bilateral Throughout] Blood Pressure 127/39 132/40 128/46 O2 Sat by Pulse 100 98 Oximetry O2 Sat by Pulse 98 Oximetry [ Assessment] 05/13/21 05/13/21 10:12 11:22 Temperature Pulse Rate 89 84 Pulse Rate [ Anterior Bilateral Throughout] Pulse Rate [ From Monitor] Respiratory Rate Respiratory Rate [Anterior Bilateral Throughout] Blood Pressure 128/49 132/45 O2 Sat by Pulse 100 Oximetry O2 Sat by Pulse Oximetry [ Assessment] - Lab 05/15/21 05:51 05/15/21 05:51 Most recent lab results ABG pH 7.498 (7.320-7.450) H 05/12/21 10:31 ABG O2 Saturation 95.2 (0-100) 05/12/21 10:31 Calcium 9.6 mg/dL (8.4-10.2) 05/13/21 05:58 Phosphorus 2.60 mg/dL (2.5-4.5) 04/22/21 08:00 Magnesium 2.10 mg/dL (1.7-2.3) 04/23/21 07:02 Urine Creatinine 24.4 mg/dL (0.1-20.0) H 04/16/21 00:12 Urine Sodium 97 mmol/L 04/16/21 00:12 Medications & Allergies - Medications Allergies/Adverse Reactions: Allergies No Known Allergies Allergy (Unverified 04/15/21 17:41) Home Medications: Home Medications Medication Instructions Recorded Confirmed Last Taken Type Betaxolol HCl [Betoptic S 0.25% 1 drop OU BID 04/16/21 04/16/21 Unknown History SUSP] Bimatoprost [Lumigan 0.01%] 1 drop OU QPM 04/16/21 04/16/21 Unknown History Brimonidine Tartrate [Brimonidine 5 ml OU BID 04/16/21 04/16/21 Unknown History Tartrate 0.2%] Furosemide [Lasix TAB] 40 mg PO QDAY 04/16/21 04/16/21 Unknown History Gabapentin [Neurontin] 300 mg PO Q8HR 04/16/21 04/16/21 Unknown History HYDROcodone/APAP 10-325 [[place] 1 each PO Q6HR PRN 04/16/21 04/16/21 Unknown History 10/325] Hydralazine HCl 50 mg PO Q4HR 04/16/21 04/16/21 Unknown History Insulin Aspart Prot/Insuln Asp 52 units SQ HS 04/16/21 04/16/21 Unknown History [Novolog Mix 70-30 Flexpen] Metoprolol [Lopressor] 25 mg PO BID 04/16/21 04/16/21 Unknown History Pravastatin [Pravachol] 20 mg PO QHS 04/16/21 04/16/21 Unknown History Promethazine [Phenergan] 25 mg PO Q6HR 04/16/21 04/16/21 Unknown History allopurinoL [Zyloprim] 150 mg PO QDAY 04/16/21 04/16/21 Unknown History Active Medications: Generic Name Dose Route Start Last Admin Trade Name Freq PRN Reason Stop Dose Admin Acetaminophen 650 mg 04/15/21 19:11 04/30/21 20:14 Acetaminophen 325 Mg Tab PO 650 mg Q6H PRN Administration Pain MILD(1-3)/Fever >100.5/SEXTON Acetylcysteine 200 mg 05/09/21 16:00 05/13/21 07:48 Acetylcysteine 20% 200 Mg/1 Ml *For Inhalation Use* INHALATION 05/16/21 15:59 200 mg Q8HRT WOLFGANG Administration Albuterol 2.5 mg 05/09/21 13:16 05/13/21 07:48 Albuterol 2.5 Mg/3 Ml Nebu IH 2.5 mg Q6HRT PRN Administration Shortness Of Breath Amlodipine Besylate 10 mg 04/25/21 10:00 05/13/21 10:12 Amlodipine 10 Mg Tab PO 10 mg DAILY WOLFGANG Administration Lipase/Protease/Amylase 1 each 04/16/21 12:52 Lipase 10,500/Protease 25,000/Amylase 43,750 (Units) Dr Simpson FEEDTUBE PRN PRN For Clogged Feeding Tube Aspirin 81 mg 04/25/21 10:00 05/13/21 10:12 Aspirin 81 Mg Tab Chew PO 81 mg QDAY WOLFGANG Administration Bisacodyl 10 mg 04/17/21 11:01 05/03/21 09:50 Bisacodyl 10 Mg Rect Supp [place] 10 mg QDAY PRN Administration Constipation Brimonidine Tartrate 1 drops 04/17/21 22:00 05/13/21 10:27 Brimonidine 0.15% Ophth Soln OU 1 drops BID [facility] Administration Docusate Sodium 100 mg 04/29/21 15:00 05/13/21 10:12 Docusate Sodium 100 Mg/10 Ml Oral Liqd PO 100 mg BID WOLFGANG Administration Famotidine 20 mg 04/17/21 10:00 05/13/21 10:31 Famotidine 20 Mg Tab PO 20 mg DAILY [facility]OLFGANG Administration Fentanyl 50 mcg 05/13/21 09:30 Fentanyl 100 Mcg/2 Ml Inj IV Q10MIN PRN ANALGESIA Heparin Sodium (Porcine) 5,000 unit 04/15/21 22:00 05/13/21 10:13 Heparin 5,000 Unit/1 Ml Vial SUB-Q 5,000 unit Q12HR [facility] Administration Hydralazine HCl 10 mg 04/16/21 18:00 04/24/21 05:25 Hydralazine 20 Mg/1 Ml Inj IV 10 mg Q4HR PRN Administration Hypertension Hydralazine HCl 50 mg 05/03/21 14:00 05/13/21 05:57 Hydralazine 25 Mg Tab PO 50 mg Q8HR [facility] Administration Hydrophilic Ointment 1 applic 04/15/21 17:24 Lip Therapy Vaseline TP Q2HR PRN Dry Lips Fentanyl Citrate 2,000 mcg in 100 mls @ 4.65 mls/hr 05/13/21 10:00 Fentanyl Drip Premix IV TITR [facility] Protocol 1 MCG/KG/HR Insulin Human Isoph/Insulin Regular 25 unit 05/09/21 08:00 05/13/21 10:12 Insulin Nph/Regular 70/30 Inj SUB-Q 25 unit BIDDIAB [facility] Administration Insulin Human Lispro 0 unit 04/16/21 15:00 05/13/21 06:52 Insulin Lispro 100 Unit/Ml SUB-Q Not Given Q6HR [facility] Protocol Latanoprost 1 drops 04/17/21 18:00 06/12/21 18:01 Latanoprost 0.005% Ophth Soln 2.5 Ml OU 1 drops QPM WOLFGAGN Administration Levothyroxine Sodium 25 mcg 04/19/21 06:00 05/13/21 05:57 Levothyroxine 25 Mcg Tab PO 25 mcg DAILY@0600 [facility] Administration Lorazepam 2 mg 05/13/21 09:30 Lorazepam 2 Mg/Ml Vial IV Q4H PRN Agitation Metoprolol Tartrate 25 mg 04/19/21 10:00 05/13/21 10:11 Metoprolol Tartrate 25 Mg Tab PO 25 mg BID [facility] Administration Multi-Ingred Cream/Lotion/Oil/Oint 1 applic 04/15/21 17:24 05/13/21 10:26 Mineral Oil/Petrolatum, White Ophth Oint 3.5 Gm OU 1 applic Q4HR PRN Administration Dry Eye(s) Pravastatin Sodium 20 mg 04/19/21 22:00 05/12/21 21:42 Pravastatin 20 Mg Tab PO 20 mg QHS [facility]OLFGANG Administration Scopolamine 1 each 04/20/21 18:00 05/11/21 09:54 Scopolamine Transdermal Patch 72 Hr TD 1 each Q3D [facility] Administration Simple Syrup 15 ml 04/16/21 12:52 Simple Syrup 15 Ml FEEDTUBE PRN PRN Hypoglycemia Simple Syrup 30 ml 04/16/21 12:52 Simple Syrup 15 Ml FEEDTUBE PRN PRN Hypoglycemia Sodium Bicarbonate 325 mg 04/16/21 12:52 Sodium Bicarbonate 325 Mg Tab FEEDTUBE PRN PRN For Clogged Feeding Tube Sodium Chloride 10 ml 04/15/21 22:00 05/13/21 10:32 Sodium Chloride 0.9% 10 Ml Flush Syringe IV 10 ml BID [facility]ANG Administration Sodium Chloride 10 ml 04/15/21 19:11 04/24/21 05:27 Sodium Chloride 0.9% 10 Ml Flush Syringe IV 10 ml PRN PRN Administration LINE FLUSH Tamsulosin HCl 0.4 mg 04/25/21 14:00 05/13/21 10:12 Tamsulosin 0.4 Mg Cap PO 0.4 mg QDAY [facility] Administration Timolol Maleate 1 drops 04/19/21 10:00 05/13/21 10:27 Timolol 0.5% Ophth Soln 5 Ml OU 1 drops QDAY [facility] Administration
--- NOTE | 2021-05-13 16:26 | Progress Note ---
Assessment and Plan This is a 80-year-old female with HTN, DM, AL, breast CA s/p double mastectomy, TIA who presented with hypoglycemia, AMS who was admitted with SIRS, symptomatic bradycardia, acute metabolic encephalopathy, acute hypoxic respiratory failure, elevated TSH, hyperglycemia, hyponatremia, hypokalemia, ROJELIO and rhabdomyolysis Acute metabolic encephalopathy-persist Acute hypoxic respiratory failure (extubated 04/20)- Re-intubated secondary to S tridor and paradoxical breathing - s/p trach and PEG First-degree heart block Resolved ileus versus mechanical obstruction Acute kidney injury with vasomotor nephropathy UTI, Pseudomonas/ Earline Elevated TSH Mild rhabdomyolysis Hypertension Diabetes mellitus with hyperglycemia on admission CAD Hypothyroidism Chronic illness debilitymyopathy Obesity -CCM, nephrology, neurology, cardiology consulted, patient recommendations -S/p D10 and D5W gtt, on TF -S/p IV calcium gluconate, regular insulin, D50 -S/p transcutaneous pacing, intermittent demand pacer in place -Renal ultrasound findings consistent with acute on chronic kidney disease, mildly complex right renal cyst -Blood pressure monitoring per protocol -Accu-Cheks every 6, SSI, long acting insulin -IV hydralazine as needed -04/25 EEG is mildly abnormal with mild slowing noted throughout the recording, suggestive of mild cortical dysfunction and/or drug effect -04/20 EEG shows mildly abnormal record due to diffuse background slowing noted throughout the recording, intermittent motion artifact, patient intubated and sedated at time of study, no sign of seizures as well epilepticus noted, possible toxic metabolic encephalopathy, drug effect, possible postictal state cannot be totally excluded. -Avoid ACEi/ARB in setting of ROJELIO -Avoid AV arron blocking agents -Avoid nephrotoxic agents and renally dose medications -BB, add home antihtn regimen as needed -TSH 14.1, T4 4.1, T3 1.1-started on levothyroxine -As needed racemic epinephrine -S/p steroids -s/p Antibiotic therapy -Trend CBC, BMP DVT/GI prophylaxis: Heparin subcu, PPI, SCDs to bilateral lower extremities while in bed Disposition: ICU The high probability of a clinically significant, sudden or life threatening deterioration of the [PULMONARY, CARDIAC, RENAL] system(s) required my full and direct attention, intervention and personal management. The aggregate critical care time was [35] minutes. This time is in addition to time spent performing reported procedures but includes the following: [X] Data Review and interpretation [X] Patient assessment and monitoring of vital signs [X] Documentation [X] Medication orders and management Brief history This is a 80-year-old female with hypertension, diabetes mellitus, AL, breast cancer s/p double mastectomy, and a TIA who presented with hypoglycemia and altered mental status on 04/15 via EMS. Per EMS patient was unresponsive on their arrival and her blood glucose was 38 and she received 1 amp of dextrose patient continued to be unresponsive and only moaned with her eyes deviating to the left. Work-up in the emergency department revealed SIRS, symptomatic bradycardia, acute metabolic encephalopathy, acute hypoxic respiratory failure, elevated TSH, hyperglycemia, hyponatremia, hyperkalemia, acute kidney injury with ATN, and rhabdomyolysis Daily clinical course; 04/16: Neurology consulted, COVID-19 PCR negative, D10 drip decreased and alicia ntually discontinued by [facility] and started on D5W for 1 L. Hydralazine as needed. Patient had hyper kalemia today and was treated with D50, insulin and Kayexalate. This time examination patient is on assist control tidal volume 450, rate of 16, PEEP of 6 and 25% FiO2. 04/17: Patient started on low-dose beta-angel per cardiology, CPAP trial again per [facility], BUN/creatinine holding steady and hypochloremia/hyponatremia slightly improved and hypokalemia has resolved. This morning a KUB was obtained which was concerning for ileus versus mechanical obstruction and surgery was consulted. Patient was made n.p.o. and NG tube placed to wall suction. Patient was given suppository. Per RN patient did not have a BM even though she was given Kayexalate yesterday. Will obtain a KUB in the a.m. Neurology was consulted yesterday and will await further recommendations. Nephew updated at bedside today, Carlos Romero. 04/18: Neurology has ordered EEG/MRI B, [facility] continues to wean MV. Persistent low grade temperature so we will obtain BCx2/UA. Patient has improving leukocytosis, hyponatremia, renal function studies and hypochloremia. She has hypokalemia today which is being repleted. Surgery has signed off today and has okayed resumption of TF. [facility] will trial CPAP for longer today and plans to attempt extubation in AM. Family has requested transfer to [facility] and Dr. Gordon will attempt to contact transfer center. I updated her nephew, Carlos Romero over the phone today abouyt current events and update on transfer ([facility] will conduct a utilization review) 04/19: This morning patient is on CPAP trial at the time of examination, noted to be hypertensive and metoprolol increased to home dose, started on synthroid by CCM, lantus started re hyperglycemia, MRI completed with no acute findings. Severe hypokalemia (repleted and Mg pending). CCM will contact CPAP trial again today with possible trial extubation tomorrow. 04/20: Patient's leukocytosis and kidney function tests continue to improve. Patient is hypertensive overnight we will restart home hydralazine. [facility] plans to extubate patient today. Family is attempting to transfer to another facility. EEG pending, RT will atmept to contact treatment technician. Urine culture grew gram negative rods. Increase in lantus 04/21: Increase in Lantus, repleted phos. Patient has started this afternoon and was given racemic epinephrine and started on steroids. Patient will have BiPAP as needed. We will recheck BMP in the a.m. renal function studies continues to decrease. Patient has been hypertensive on evaluation regimen has been changed . 04/22: Lantus increased for hyperglycemia and add amlodipine for better BP control. Patient is on steroids. OT suctioned by RN with catheter in oral care kit and received copious amounts of secretions. Cr continues to decrease. Culture grew Pseudomonas and was changed in accordance to sensitivity. Kerr removed today after clearance from nephrology. 04/23: MRI of the brain was done and unremarkable. Will obtain reconsult to nephrology for further assistance as patient remains in profound encephalopathy despite improvement of blood sugar. Will repeat chest x-ray as patient does have significant congestion physical exam. Tube feeds still ongoing. Continue aspiration precautions. Continue antibiotics when completed for Pseudomonas management 04/24: Neurology input noted, patient unfortunately with no improvement mental status [place], continues with congestion, will defer with Box Sealing Machine Catcher for lasix in the setting of renal failure. will give kayexlate for hyperkalemia, still moans and groans, mittens in place. 04/25: Patient currently intubated, on restraints for safety, Profund encephalopathy persist, although awake she is not following any commands, Call placed to [facility] to see if they will accept transfer for ENT evaluation, while CT neck was negative, it was degraded by motion and unable to determent why patient had this stridor, Racemic Epinephrine was given, [facility] is on ICU saturation, but will call back with an ENT to discuss case. Renal function mildly worse, continue to monitor. Per cardiology, no further arrhythmias noted since admission. Given short duration of atrial fibrillation, along with pt's age, renal fxn, and other co- morbidities,...will resume additional medical therapies for underlying severe multi-vessel CAD (bASA & Plavix). Pt has previously declined intervention of known lesions as per her Primary Fleet Manager. 04/26: Now with febrile illness, ?developing infection, start on empiric abx, check lactate level, blood cultures, continue management per Weaving Instructor, Monitor leukocytosis, agree with Trach, family updated about denials in transfer request from outside hospitals. 04/27: WBC improving some, still with fever despite antibotics, ID consulted. CXR clear, continue current management, Trach will be planned if ok with family. Bl ood sugar remains elevated, will adjust insulin LANTUS to 40 units. Patient had previously completed Cefepime. Mental status remains unchanged, still moves upper ext. continue restraints 04/28: Continue supportive care. No new fever noted. Critical care physician will determine if patient should be have a trial of extubation again or if we should proceed straight to trach. Again continue to monitor mental status for complete improvement. 04/29: Per Weaving Instructor discussion with family, will proceed to Tracheostomy, Patients mental status still fluctuating, Continue current management. Surgeon consulted. 04/30: General surgery consulted for trach, continue to trend CBC and BMP. Kidney function slightly worsened today. Increase in Lantus. Tmax 100.2, per ID will consider imaging if leukocytosis remains elevated with fevers. Plavix held for possible tracheostomy next week. 05/01: Patient fever curve is trending down with improving leukocytosis. Patient renal function worsened today. She remains hyperglycemic and her Lantus was increased to her home dose of Novolin 70/30. Patient was rate controlled yesterday due to T-max of 101. She remains on CMV tidal volume 450, rate of 10, PEEP of 6 and 30% FiO2. We will increase the water flushes given slight hypernatremia. Dr. Andrea updated nephew (Carlos) at bedside. CPAP trails. 05/02: Patient's hypernatremia and hyperchloremia slightly worsened and femur fractures were increased. Kidney functions remain the same however BUN is in the 100s. Nephrology is following. Kerr catheter was removed. Awaiting trach placement with possibility on Friday. 05/03: Patient grew Earline in her urine culture however per ID and the Kerr was already exchanged. Patient is on cefepime and Flagyl. Plavix still on hold awaiting trach. CCM started the patient on half-normal saline at 75 mL/h for 2 L related to azatoma and hypernatremia. Patient mental status continues to wax and wane. Creatinine is 3.1 today from 3.4 yesterday. Patient had a bowel movement today. Patient remains hyperglycemic and Lantus was changed from a.m. to p.m.. 05/04: Patient's renal function is improving, surgery obtain consent for trach/PEG scheduled for 05/07, antibiotics to end tomorrow. We will obtain BMP in the a.m. Lantus dosage change from AC to at bedtime in hopes of better glycemic control. 05/05: Patient Lantus dose is changed to twice daily in hopes of better glycemic control. Awaiting surgical procedure hopefully on Friday. Patient's BUN/creatinine improved and hypernatremia has resolved. 05/06: Patient has slight hypernatremia and hyperchloremia and improvement to BUN/creatinine. Better glycemic control. Awaiting trach on Friday. NGT was displaced but now replaced and TF resumed. 05/07 This is a 80-year-old female with HTN, DM, AL, breast CA s/p double mastectomy, TIA who presented with hypoglycemia, AMS who was admitted with SIRS, symptomatic bradycardia, acute metabolic encephalopathy, acute hypoxic respiratory failure, elevated TSH, hyperglycemia, hyponatremia, hypokalemia, ROJELIO and rhabdomyolysis. She is for Trach and PEG today. 05/08: s/p trach and PEG placement yesterday. cont to monitor, wean off from vent as tolertaed 05/09: Patient started on tube feeding and tolerating well. Currently on CPAP setting with newly placed trach. Discussed with case management and patient would need placement. Continue supportive care and follow clinically. 05/10: Continue supportive care, patient is tolerating tube feeding diet. Remains on CPAP with trach. Pending LTAC placement. 05/11: Continue supportive care, patient is tolerating tube feeding diet. Remains on CPAP with trach. Plan to wean off from Vent as tolerates and to place on t-piece. 05/12; Patient placed on t-piece today, tolerating TF, cont to monitor clinically. follow CBC/BMP 05/13: Remains on t-piece, plan to wean off to wall T-piece. If unable to wean off from vent then patient will need criteria for LTAC upon her insurance requirement. If she tolerates weaning trial and able to maintain T-piece then she will be discharged back to [facility]. Ordered for a.m. labs. Continue to follow clinically with supportive care. Subjective Date of service: 05/13/21 Principal diagnosis: Ac. resp failure; AMS; Hypoglycemia; ROJELIO; Hyperkalemia; DM II Interval history: Patient seen and examined. Medical records and medication list reviewed. No acute event overnight noted by the RN. Patient remains on trach tube, on tube feeding - tolerating well Discussed plan of care at bedside with patient's RN. Objective - Exam Narrative Exam: General appearance: Present: no acute distress, intubated on mechanical ventilation - EENT Eyes: Present: PERRL, EOM intact - Neck Neck: Present: normal ROM, trach in place - Respiratory Respiratory effort: normal Respiratory: bilateral: diminished - Cardiovascular Rhythm: regular Heart Sounds: Present: S1 & S2. Absent: systolic murmur, diastolic murmur - Extremities Extremities: no ischemia, pulses intact, pulses symmetrical, normal temperature, normal color Peripheral Pulses: within normal limits - Abdominal General gastrointestinal: soft, non-tender, non-distended, normal bowel sounds - Integumentary Integumentary: Present: warm, dry - Psychiatric Psychiatric: cooperative - Neurologic Neurologic: moves all extremities - Constitutional Vitals: Vital Signs - 12hr 05/13/21 05/13/21 05/13/21 05:00 05:57 06:00 Temperature Pulse Rate 74 85 81 Pulse Rate [ Anterior Bilateral Throughout] Respiratory 17 18 Rate Respiratory Rate [Anterior Bilateral Throughout] Blood Pressure 121/49 121/79 121/49 O2 Sat by Pulse 99 100 Oximetry O2 Sat by Pulse Oximetry [ Assessment] 05/13/21 05/13/21 05/13/21 07:00 07:48 08:00 Temperature 98.5 F Pulse Rate 80 71 80 Pulse Rate [ 81 Anterior Bilateral Throughout] Respiratory 19 21 Rate Respiratory 16 Rate [Anterior Bilateral Throughout] Blood Pressure 127/39 127/39 126/51 O2 Sat by Pulse 97 100 100 Oximetry O2 Sat by Pulse Oximetry [ Assessment] 05/13/21 05/13/21 05/13/21 09:00 09:13 10:00 Temperature Pulse Rate 83 81 86 Pulse Rate [ Anterior Bilateral Throughout] Respiratory 20 26 H Rate Respiratory Rate [Anterior Bilateral Throughout] Blood Pressure 132/40 132/40 124/46 O2 Sat by Pulse 100 98 99 Oximetry O2 Sat by Pulse 98 Oximetry [ Assessment] 05/13/21 05/13/21 05/13/21 10:11 10:12 11:00 Temperature Pulse Rate 89 89 79 Pulse Rate [ Anterior Bilateral Throughout] Respiratory 23 Rate Respiratory Rate [Anterior Bilateral Throughout] Blood Pressure 128/46 128/49 132/45 O2 Sat by Pulse 100 Oximetry O2 Sat by Pulse Oximetry [ Assessment] 05/13/21 05/13/21 05/13/21 11:22 12:00 13:00 Temperature Pulse Rate 84 80 81 Pulse Rate [ Anterior Bilateral Throughout] Respiratory 23 27 H Rate Respiratory Rate [Anterior Bilateral Throughout] Blood Pressure 132/45 147/48 153/54 O2 Sat by Pulse 100 100 100 Oximetry O2 Sat by Pulse Oximetry [ Assessment] 05/13/21 05/13/21 05/13/21 13:24 14:00 14:47 Temperature 99.2 F Pulse Rate 80 82 Pulse Rate [ Anterior Bilateral Throughout] Respiratory 27 H Rate Respiratory Rate [Anterior Bilateral Throughout] Blood Pressure 153/54 144/59 O2 Sat by Pulse 100 Oximetry O2 Sat by Pulse Oximetry [ Assessment] 05/13/21 05/13/21 15:00 15:29 Temperature Pulse Rate 80 83 Pulse Rate [ Anterior Bilateral Throughout] Respiratory 21 Rate Respiratory Rate [Anterior Bilateral Throughout] Blood Pressure 135/52 135/52 O2 Sat by Pulse 100 100 Oximetry O2 Sat by Pulse 100 Oximetry [ Assessment] - Labs CBC & Chem 7: 05/08/21 07:07 05/13/21 05:58 Labs: Abnormal lab results 05/12/21 05/12/21 05/13/21 Range/Units 17:39 23:36 05:49 Chloride (98-107) mmol/L BUN (7-17) mg/dL Creatinine (0.6-1.2) mg/dL Glucose (65-100) mg/dL POC Glucose 148 H 148 H 173 H (70-105) mg/dL 05/13/21 05/13/21 Range/Units 05:58 13:09 Chloride 108.0 H (98-107) mmol/L BUN 53 H (7-17) mg/dL Creatinine 2.2 H (0.6-1.2) mg/dL Glucose 178 H (65-100) mg/dL POC Glucose 191 H (70-105) mg/dL HEART Score - HEART Score Troponin: Troponin T 0.065 ng/mL (0.00-0.029) H 04/20/21 03:32
--- NOTE | 2021-05-13 18:32 | Progress Note ---
Assessment and Plan Acute respiratory failure, on mechanical ventilatory support. Acute toxic metabolic encephalopathy Hypoglycemia ROJELIO Hyperkalemia Rhabdomyolysis Possible seizure activity DM II HTN CAD Obesity H/O breast cancer H/O TIA Leukocytosis Elevated serum TSH, possible hypothyroidism - slowly advance t-piece trials as tolerated - rest on full support if fails - LTAC evaluation ongoing - continue care as below otherwise; - continue to wean supplemental oxygen for target O2 sat's > 90% acutely - VAP bundle addressed - continue lung protective strategies - continue bronchodilators with pulmonary hygiene per RT - continue Daily SAT and SBT assessment as tolerated - wean per pulmonary driven protocols otherwise - continue accuchecks with glycemic control per SSI (While critically ill target blood glucose of 140-180 mg/dL; avoid hypoglycemia) - sedation prn for target RASS 0 to -1 - avoid nephrotoxins, renally dose all medications - continue to avoid benzodiazepine's, reduce the possibility of delirium - complete AB's per ID rec's re: Cefepime and Flagyl - follow clinically trend fevers / WBC - prn analgesia per CPOT score - Maintenance of sleep-wake cycle, avoid delirium - continue enteral nutritional support at goal rate as tolerated - G.I. & VTE prophylaxis - PT/OT/ROM exercises - continue Flomax re: retention - continue mobility protocols for pressure ulcer prophylaxis - Monitor hemodynamics closely - continue other care per attending / other consultants - discharge planning ongoing concurrently .... Re-evaluate in am & prn CONDITION: CRITICAL PROGNOSIS: GUARDED CODE STATUS: FULL CODE The high probability of a clinically significant, sudden or life-threatening deterioration of the [respiratory, cardiovascular, GI & neurologic] system(s) required my full and direct attention, intervention and personal management. The aggregate critical care time was [36] minutes without overlap. Time includes spent on; [x] Data Review and interpretation [x] Patient assessment and monitoring of vital signs [x] Documentation [x] Medication orders and management Subjective Date of service: 05/13/21 Principal diagnosis: Ac. resp failure; AMS; Hypoglycemia; ROJELIO; Hyperkalemia; DM II Interval history: Patient is seen today for: Acute respiratory failure; AMS; Hypoglycemia; ROJELIO; Hyperkalemia; DM II; H/O breast cancer; Elevated serum TSH, possible hypothyroidism Seen and examined at bedside; 24hour events reviewed; nursing and respiratory care staff consulted; no adverse overnight events reported to me; resting peacefully in bed; remains on MVS; shooting for 16 hours on T-piece today Objective Vital Signs - 12hr 05/13/21 05/13/21 05/13/21 07:00 07:48 08:00 Temperature 98.5 F Pulse Rate 80 71 80 Pulse Rate [ 81 Anterior Bilateral Throughout] Respiratory 19 21 Rate Respiratory 16 Rate [Anterior Bilateral Throughout] Blood Pressure 127/39 127/39 126/51 O2 Sat by Pulse 97 100 100 Oximetry O2 Sat by Pulse Oximetry [ Assessment] 05/13/21 05/13/21 05/13/21 09:00 09:13 10:00 Temperature Pulse Rate 83 81 86 Pulse Rate [ Anterior Bilateral Throughout] Respiratory 20 26 H Rate Respiratory Rate [Anterior Bilateral Throughout] Blood Pressure 132/40 132/40 124/46 O2 Sat by Pulse 100 98 99 Oximetry O2 Sat by Pulse 98 Oximetry [ Assessment] 05/13/21 05/13/21 05/13/21 10:11 10:12 11:00 Temperature Pulse Rate 89 89 79 Pulse Rate [ Anterior Bilateral Throughout] Respiratory 23 Rate Respiratory Rate [Anterior Bilateral Throughout] Blood Pressure 128/46 128/49 132/45 O2 Sat by Pulse 100 Oximetry O2 Sat by Pulse Oximetry [ Assessment] 05/13/21 05/13/21 05/13/21 11:22 12:00 13:00 Temperature Pulse Rate 84 80 81 Pulse Rate [ Anterior Bilateral Throughout] Respiratory 23 27 H Rate Respiratory Rate [Anterior Bilateral Throughout] Blood Pressure 132/45 147/48 153/54 O2 Sat by Pulse 100 100 100 Oximetry O2 Sat by Pulse Oximetry [ Assessment] 05/13/21 05/13/21 05/13/21 13:24 14:00 14:47 Temperature 99.2 F Pulse Rate 80 82 Pulse Rate [ Anterior Bilateral Throughout] Respiratory 27 H Rate Respiratory Rate [Anterior Bilateral Throughout] Blood Pressure 153/54 144/59 O2 Sat by Pulse 100 Oximetry O2 Sat by Pulse Oximetry [ Assessment] 05/13/21 05/13/21 05/13/21 15:00 15:29 17:31 Temperature 98.8 F Pulse Rate 80 83 Pulse Rate [ 83 Anterior Bilateral Throughout] Respiratory 21 Rate Respiratory 18 Rate [Anterior Bilateral Throughout] Blood Pressure 135/52 135/52 O2 Sat by Pulse 100 100 Oximetry O2 Sat by Pulse 100 Oximetry [ Assessment] Constitutional: no acute distress, other (elderly obese female with mildly increased respiratory effort at rest on MVS) Eyes: non-icteric ENT: oropharynx moist, oropharyngeal exudate pre, other (+ midline tracheostomy without bleeding stoma) Neck: supple, no lymphadenopathy, no JVD, other (large circumference) Effort: mildly labored Ascultation: Bilateral: diminished breath sounds, rhonchi Percussion: Bilateral: not dull Cardiovascular: regular rate and rhythm, other (S1,S2) Gastrointestinal: normoactive bowel sounds, hypoactive bowel sounds, non-tender, non-distended (protuberant) Integumentary: normal Extremities: no cyanosis, no edema, pulses normal, no ischemia or petechiae Neurologic: non-focal exam (tracks voice), pupils equal and round, CN II-XII normal, motor strength normal and Psychiatric: other (falt affect) CBC and BMP: 05/14/21 08:50 05/14/21 08:16 ABG, PT/INR, D-dimer: ABG ABG pH 7.498 (7.320-7.450) H 05/12/21 10:31 POC ABG pCO2 35.2 mmHg (32.0-48.0) 05/12/21 10:31 POC ABG pO2 75.8 mmHg (83-108) L 05/12/21 10:31 POC ABG HCO3 26.7 05/12/21 10:31 ABG O2 Saturation 95.2 (0-100) 05/12/21 10:31 PT/INR, D-dimer PT 14.8 Sec. (12.2-14.9) 05/07/21 08:20 INR 1.11 (0.87-1.13) 05/07/21 08:20 Abnormal lab findings: Abnormal Labs 04/15/21 04/15/21 04/15/21 17:00 17:20 17:20 WBC 11.2 H RBC Hgb Hct 43.0 H MCV RDW 15.3 H Plt Count Lymph % (Auto) 12.8 L Seg Neutrophils % 82.4 H Seg Neuts % (Manual) Lymphocytes % (Manual) Monocytes % (Manual) Seg Neutrophils # 9.3 H Seg Neutrophils # Man Lymphocytes # (Manual) Monocytes # (Manual) ABG pH POC ABG pCO2 POC ABG pO2 ABG Hemoglobin ABG Oxyhemoglobin ABG Sodium ABG Potassium ABG Chloride ABG Glucose Carboxyhemoglobin Sodium 129 L Potassium 7.1 H* Chloride 91.9 L BUN 35 H Creatinine 2.8 H Glucose POC Glucose 191 H Calcium Phosphorus Magnesium AST 69 H ALT Total Creatine Kinase CK-MB (CK-2) Troponin T Total Protein Albumin HDL Cholesterol TSH Free T3 Index Arterial Blood Glucose Arterial Blood Ionized Calcium Urine pH Urine WBC (Auto) Urine Creatinine Acetaminophen 04/15/21 04/15/21 04/15/21 17:20 17:20 17:20 WBC RBC Hgb Hct MCV RDW Plt Count Lymph % (Auto) Seg Neutrophils % Seg Neuts % (Manual) Lymphocytes % (Manual) Monocytes % (Manual) Seg Neutrophils # Seg Neutrophils # Man Lymphocytes # (Manual) Monocytes # (Manual) ABG pH POC ABG pCO2 POC ABG pO2 ABG Hemoglobin ABG Oxyhemoglobin ABG Sodium ABG Potassium ABG Chloride ABG Glucose Carboxyhemoglobin Sodium Potassium Chloride BUN Creatinine Glucose POC Glucose Calcium Phosphorus Magnesium AST ALT Total Creatine Kinase 1000 H CK-MB (CK-2) Troponin T Total Protein Albumin HDL Cholesterol TSH 14.190 H Free T3 Index Arterial Blood Glucose Arterial Blood Ionized Calcium Urine pH Urine WBC (Auto) Urine Creatinine Acetaminophen 5.0 L 04/15/21 04/15/21 04/15/21 20:49 21:23 23:15 WBC RBC Hgb Hct MCV RDW Plt Count Lymph % (Auto) Seg Neutrophils % Seg Neuts % (Manual) Lymphocytes % (Manual) Monocytes % (Manual) Seg Neutrophils # Seg Neutrophils # Man Lymphocytes # (Manual) Monocytes # (Manual) ABG pH 7.557 H POC ABG pCO2 30.0 L POC ABG pO2 493.3 H ABG Hemoglobin ABG Oxyhemoglobin 99.0 H ABG Sodium 131.5 L ABG Potassium 4.7 H ABG Chloride 94.0 L ABG Glucose 218 H Carboxyhemoglobin Sodium Potassium Chloride BUN Creatinine Glucose POC Glucose 173 H 207 H Calcium Phosphorus Magnesium AST ALT Total Creatine Kinase CK-MB (CK-2) Troponin T Total Protein Albumin HDL Cholesterol TSH Free T3 Index Arterial Blood Glucose 218 H Arterial Blood Ionized Calcium 5.4 H Urine pH Urine WBC (Auto) Urine Creatinine Acetaminophen 04/16/21 04/16/21 04/16/21 00:09 00:12 00:19 WBC RBC Hgb Hct MCV RDW Plt Count Lymph % (Auto) Seg Neutrophils % Seg Neuts % (Manual) Lymphocytes % (Manual) Monocytes % (Manual) Seg Neutrophils # Seg Neutrophils # Man Lymphocytes # (Manual) Monocytes # (Manual) ABG pH POC ABG pCO2 POC ABG pO2 ABG Hemoglobin ABG Oxyhemoglobin ABG Sodium ABG Potassium ABG Chloride ABG Glucose Carboxyhemoglobin Sodium Potassium 6.7 H* Chloride BUN Creatinine Glucose POC Glucose Calcium Phosphorus Magnesium AST ALT Total Creatine Kinase CK-MB (CK-2) Troponin T Total Protein Albumin HDL Cholesterol TSH Free T3 Index Arterial Blood Glucose Arterial Blood Ionized Calcium Urine pH 9.0 H Urine WBC (Auto) Urine Creatinine 24.4 H Acetaminophen 04/16/21 04/16/21 04/16/21 03:43 03:55 05:02 WBC 21.2 H RBC Hgb Hct 43.4 H MCV 98 H RDW Plt Count Lymph % (Auto) Seg Neutrophils % Seg Neuts % (Manual) 84.0 H Lymphocytes % (Manual) 2.0 L Monocytes % (Manual) 10.0 H Seg Neutrophils # Seg Neutrophils # Man 17.8 H Lymphocytes # (Manual) 0.4 L Monocytes # (Manual) 2.1 H ABG pH 7.461 H POC ABG pCO2 POC ABG pO2 ABG Hemoglobin ABG Oxyhemoglobin ABG Sodium 126.8 L ABG Potassium 5.4 H ABG Chloride 90.0 L ABG Glucose 325 H Carboxyhemoglobin Sodium Potassium Chloride BUN Creatinine Glucose POC Glucose 391 H Calcium Phosphorus Magnesium AST ALT Total Creatine Kinase CK-MB (CK-2) Troponin T Total Protein Albumin HDL Cholesterol TSH Free T3 Index Arterial Blood Glucose 325 H Arterial Blood Ionized Calcium Urine pH Urine WBC (Auto) Urine Creatinine Acetaminophen 04/16/21 04/16/21 04/16/21 05:02 11:34 16:09 WBC RBC Hgb Hct MCV RDW Plt Count Lymph % (Auto) Seg Neutrophils % Seg Neuts % (Manual) Lymphocytes % (Manual) Monocytes % (Manual) Seg Neutrophils # Seg Neutrophils # Man Lymphocytes # (Manual) Monocytes # (Manual) ABG pH POC ABG pCO2 POC ABG pO2 ABG Hemoglobin ABG Oxyhemoglobin ABG Sodium ABG Potassium ABG Chloride ABG Glucose Carboxyhemoglobin Sodium 131 L Potassium 5.9 H Chloride 88.7 L BUN 34 H Creatinine 2.9 H Glucose 249 H POC Glucose 382 H 300 H Calcium 10.4 H Phosphorus Magnesium AST 65 H ALT Total Creatine Kinase CK-MB (CK-2) Troponin T Total Protein Albumin 3.8 L HDL Cholesterol TSH Free T3 Index Arterial Blood Glucose Arterial Blood Ionized Calcium Urine pH Urine WBC (Auto) Urine Creatinine Acetaminophen 04/16/21 04/16/21 04/16/21 18:15 19:01 19:01 WBC RBC Hgb Hct MCV RDW Plt Count Lymph % (Auto) Seg Neutrophils % Seg Neuts % (Manual) Lymphocytes % (Manual) Monocytes % (Manual) Seg Neutrophils # Seg Neutrophils # Man Lymphocytes # (Manual) Monocytes # (Manual) ABG pH POC ABG pCO2 POC ABG pO2 ABG Hemoglobin ABG Oxyhemoglobin ABG Sodium ABG Potassium ABG Chloride ABG Glucose Carboxyhemoglobin Sodium 125 L Potassium 5.5 H Chloride 84.5 L BUN 37 H Creatinine 3.5 H Glucose 236 H POC Glucose 287 H Calcium Phosphorus Magnesium AST ALT Total Creatine Kinase CK-MB (CK-2) Troponin T Total Protein Albumin HDL Cholesterol TSH Free T3 Index 1.1 L Arterial Blood Glucose Arterial Blood Ionized Calcium Urine pH Urine WBC (Auto) Urine Creatinine Acetaminophen 04/16/21 04/16/21 04/17/21 19:01 23:48 03:09 WBC RBC Hgb Hct MCV RDW Plt Count Lymph % (Auto) Seg Neutrophils % Seg Neuts % (Manual) Lymphocytes % (Manual) Monocytes % (Manual) Seg Neutrophils # Seg Neutrophils # Man Lymphocytes # (Manual) Monocytes # (Manual) ABG pH 7.518 H POC ABG pCO2 POC ABG pO2 ABG Hemoglobin ABG Oxyhemoglobin ABG Sodium 126.4 L ABG Potassium ABG Chloride 89.0 L ABG Glucose 200 H Carboxyhemoglobin Sodium Potassium 5.6 H Chloride BUN Creatinine Glucose POC Glucose 243 H Calcium Phosphorus Magnesium AST ALT Total Creatine Kinase CK-MB (CK-2) Troponin T Total Protein Albumin HDL Cholesterol TSH Free T3 Index Arterial Blood Glucose 200 H Arterial Blood Ionized Calcium 4.4 L Urine pH Urine WBC (Auto) Urine Creatinine Acetaminophen 04/17/21 04/17/21 04/17/21 05:04 06:14 11:55 WBC RBC Hgb Hct MCV RDW Plt Count Lymph % (Auto) Seg Neutrophils % Seg Neuts % (Manual) Lymphocytes % (Manual) Monocytes % (Manual) Seg Neutrophils # Seg Neutrophils # Man Lymphocytes # (Manual) Monocytes # (Manual) ABG pH POC ABG pCO2 POC ABG pO2 ABG Hemoglobin ABG Oxyhemoglobin ABG Sodium ABG Potassium ABG Chloride ABG Glucose Carboxyhemoglobin Sodium 129 L Potassium Chloride 86.1 L BUN 39 H Creatinine 3.5 H Glucose 202 H POC Glucose 208 H 276 H Calcium Phosphorus Magnesium AST ALT Total Creatine Kinase 750 H CK-MB (CK-2) Troponin T 0.119 H* D Total Protein Albumin HDL Cholesterol 61 H TSH Free T3 Index Arterial Blood Glucose Arterial Blood Ionized Calcium Urine pH Urine WBC (Auto) Urine Creatinine Acetaminophen 04/17/21 04/17/21 04/17/21 15:35 15:35 17:07 WBC 17.1 H RBC Hgb Hct MCV RDW Plt Count Lymph % (Auto) Seg Neutrophils % Seg Neuts % (Manual) Lymphocytes % (Manual) Monocytes % (Manual) Seg Neutrophils # Seg Neutrophils # Man Lymphocytes # (Manual) Monocytes # (Manual) ABG pH POC ABG pCO2 POC ABG pO2 ABG Hemoglobin ABG Oxyhemoglobin ABG Sodium ABG Potassium ABG Chloride ABG Glucose Carboxyhemoglobin Sodium Potassium Chloride BUN Creatinine Glucose POC Glucose 148 H Calcium Phosphorus Magnesium AST ALT Total Creatine Kinase 615 H CK-MB (CK-2) 9.1 H Troponin T Total Protein Albumin HDL Cholesterol TSH Free T3 Index Arterial Blood Glucose Arterial Blood Ionized Calcium Urine pH Urine WBC (Auto) Urine Creatinine Acetaminophen 04/18/21 04/18/21 04/18/21 00:01 03:00 05:24 WBC RBC Hgb Hct MCV RDW Plt Count Lymph % (Auto) Seg Neutrophils % Seg Neuts % (Manual) Lymphocytes % (Manual) Monocytes % (Manual) Seg Neutrophils # Seg Neutrophils # Man Lymphocytes # (Manual) Monocytes # (Manual) ABG pH 7.497 H POC ABG pCO2 POC ABG pO2 77.7 L ABG Hemoglobin 10.4 L ABG Oxyhemoglobin ABG Sodium 129.7 L ABG Potassium 2.8 L ABG Chloride 92.0 L ABG Glucose 134 H Carboxyhemoglobin 0.3 L Sodium Potassium Chloride BUN Creatinine Glucose POC Glucose 192 H 162 H Calcium Phosphorus Magnesium AST ALT Total Creatine Kinase CK-MB (CK-2) Troponin T Total Protein Albumin HDL Cholesterol TSH Free T3 Index Arterial Blood Glucose 134 H Arterial Blood Ionized Calcium 4.3 L Urine pH Urine WBC (Auto) Urine Creatinine Acetaminophen 04/18/21 04/18/21 04/18/21 05:34 05:34 05:43 WBC 15.3 H RBC 3.34 L Hgb Hct MCV RDW 15.3 H Plt Count Lymph % (Auto) Seg Neutrophils % Seg Neuts % (Manual) Lymphocytes % (Manual) Monocytes % (Manual) Seg Neutrophils # Seg Neutrophils # Man Lymphocytes # (Manual) Monocytes # (Manual) ABG pH POC ABG pCO2 POC ABG pO2 ABG Hemoglobin ABG Oxyhemoglobin ABG Sodium ABG Potassium ABG Chloride ABG Glucose Carboxyhemoglobin Sodium 134 L Potassium 3.0 L D Chloride 93.5 L BUN 42 H Creatinine 3.1 H Glucose 152 H POC Glucose Calcium Phosphorus Magnesium 1.40 L AST ALT Total Creatine Kinase 427 H CK-MB (CK-2) Troponin T 0.081 H D Total Protein Albumin HDL Cholesterol TSH Free T3 Index Arterial Blood Glucose Arterial Blood Ionized Calcium Urine pH Urine WBC (Auto) Urine Creatinine Acetaminophen 04/18/21 04/18/21 04/18/21 09:11 11:34 17:24 WBC RBC Hgb Hct MCV RDW Plt Count Lymph % (Auto) Seg Neutrophils % Seg Neuts % (Manual) Lymphocytes % (Manual) Monocytes % (Manual) Seg Neutrophils # Seg Neutrophils # Man Lymphocytes # (Manual) Monocytes # (Manual) ABG pH POC ABG pCO2 POC ABG pO2 ABG Hemoglobin ABG Oxyhemoglobin ABG Sodium ABG Potassium ABG Chloride ABG Glucose Carboxyhemoglobin Sodium Potassium Chloride BUN Creatinine Glucose POC Glucose 170 H 151 H Calcium Phosphorus Magnesium AST ALT Total Creatine Kinase CK-MB (CK-2) Troponin T Total Protein Albumin HDL Cholesterol TSH Free T3 Index Arterial Blood Glucose Arterial Blood Ionized Calcium Urine pH Urine WBC (Auto) 34.0 H Urine Creatinine Acetaminophen 04/18/21 04/19/21 04/19/21 23:18 04:09 05:19 WBC RBC Hgb Hct MCV RDW Plt Count Lymph % (Auto) Seg Neutrophils % Seg Neuts % (Manual) Lymphocytes % (Manual) Monocytes % (Manual) Seg Neutrophils # Seg Neutrophils # Man Lymphocytes # (Manual) Monocytes # (Manual) ABG pH 7.476 H POC ABG pCO2 POC ABG pO2 79.4 L ABG Hemoglobin 10.7 L ABG Oxyhemoglobin ABG Sodium 131.2 L ABG Potassium 2.8 L ABG Chloride 94.0 L ABG Glucose 209 H Carboxyhemoglobin 0.3 L Sodium Potassium Chloride BUN Creatinine Glucose POC Glucose 182 H 204 H Calcium Phosphorus Magnesium AST ALT Total Creatine Kinase CK-MB (CK-2) Troponin T Total Protein Albumin HDL Cholesterol TSH Free T3 Index Arterial Blood Glucose 209 H Arterial Blood Ionized Calcium Urine pH Urine WBC (Auto) Urine Creatinine Acetaminophen 04/19/21 04/19/21 04/19/21 07:30 07:30 10:35 WBC 14.8 H RBC 3.20 L Hgb Hct MCV 98 H RDW Plt Count 137 L Lymph % (Auto) Seg Neutrophils % Seg Neuts % (Manual) Lymphocytes % (Manual) Monocytes % (Manual) Seg Neutrophils # Seg Neutrophils # Man Lymphocytes # (Manual) Monocytes # (Manual) ABG pH 7.464 H POC ABG pCO2 POC ABG pO2 81.8 L ABG Hemoglobin 10.8 L ABG Oxyhemoglobin ABG Sodium 129.6 L ABG Potassium ABG Chloride 95.0 L ABG Glucose 238 H Carboxyhemoglobin Sodium 133 L Potassium 2.8 L* Chloride 94.4 L BUN 43 H Creatinine 2.7 H Glucose 255 H POC Glucose Calcium 8.0 L Phosphorus Magnesium AST ALT Total Creatine Kinase CK-MB (CK-2) Troponin T 0.060 H D Total Protein Albumin HDL Cholesterol TSH Free T3 Index Arterial Blood Glucose 238 H Arterial Blood Ionized Calcium Urine pH Urine WBC (Auto) Urine Creatinine Acetaminophen 04/19/21 04/19/21 04/19/21 11:48 20:40 23:04 WBC RBC Hgb Hct MCV RDW Plt Count Lymph % (Auto) Seg Neutrophils % Seg Neuts % (Manual) Lymphocytes % (Manual) Monocytes % (Manual) Seg Neutrophils # Seg Neutrophils # Man Lymphocytes # (Manual) Monocytes # (Manual) ABG pH POC ABG pCO2 POC ABG pO2 ABG Hemoglobin ABG Oxyhemoglobin ABG Sodium ABG Potassium ABG Chloride ABG Glucose Carboxyhemoglobin Sodium Potassium 3.4 L D Chloride BUN Creatinine Glucose POC Glucose 208 H 173 H Calcium Phosphorus Magnesium AST ALT Total Creatine Kinase CK-MB (CK-2) Troponin T Total Protein Albumin HDL Cholesterol TSH Free T3 Index Arterial Blood Glucose Arterial Blood Ionized Calcium Urine pH Urine WBC (Auto) Urine Creatinine Acetaminophen 04/20/21 04/20/21 04/20/21 02:56 03:32 03:32 WBC 13.2 H RBC 3.18 L Hgb Hct MCV RDW Plt Count Lymph % (Auto) Seg Neutrophils % Seg Neuts % (Manual) Lymphocytes % (Manual) Monocytes % (Manual) Seg Neutrophils # Seg Neutrophils # Man Lymphocytes # (Manual) Monocytes # (Manual) ABG pH 7.526 H POC ABG pCO2 POC ABG pO2 ABG Hemoglobin 10.5 L ABG Oxyhemoglobin ABG Sodium 133.5 L ABG Potassium ABG Chloride ABG Glucose 157 H Carboxyhemoglobin 0.3 L Sodium 135 L Potassium Chloride 96.7 L BUN 40 H Creatinine 2.3 H Glucose 142 H POC Glucose Calcium Phosphorus Magnesium AST ALT Total Creatine Kinase CK-MB (CK-2) Troponin T 0.065 H Total Protein Albumin HDL Cholesterol TSH Free T3 Index Arterial Blood Glucose 157 H Arterial Blood Ionized Calcium Urine pH Urine WBC (Auto) Urine Creatinine Acetaminophen 04/20/21 04/20/21 04/20/21 03:46 05:42 11:50 WBC RBC Hgb Hct MCV RDW Plt Count Lymph % (Auto) Seg Neutrophils % Seg Neuts % (Manual) Lymphocytes % (Manual) Monocytes % (Manual) Seg Neutrophils # Seg Neutrophils # Man Lymphocytes # (Manual) Monocytes # (Manual) ABG pH POC ABG pCO2 POC ABG pO2 ABG Hemoglobin ABG Oxyhemoglobin ABG Sodium ABG Potassium ABG Chloride ABG Glucose Carboxyhemoglobin Sodium Potassium Chloride BUN Creatinine Glucose POC Glucose 160 H 194 H Calcium Phosphorus 2.10 L Magnesium AST ALT Total Creatine Kinase CK-MB (CK-2) Troponin T Total Protein Albumin HDL Cholesterol TSH Free T3 Index Arterial Blood Glucose Arterial Blood Ionized Calcium Urine pH Urine WBC (Auto) Urine Creatinine Acetaminophen 04/20/21 04/20/21 04/21/21 17:09 23:18 05:26 WBC RBC Hgb Hct MCV RDW Plt Count Lymph % (Auto) Seg Neutrophils % Seg Neuts % (Manual) Lymphocytes % (Manual) Monocytes % (Manual) Seg Neutrophils # Seg Neutrophils # Man Lymphocytes # (Manual) Monocytes # (Manual) ABG pH POC ABG pCO2 POC ABG pO2 ABG Hemoglobin ABG Oxyhemoglobin ABG Sodium ABG Potassium ABG Chloride ABG Glucose Carboxyhemoglobin Sodium Potassium Chloride BUN Creatinine Glucose POC Glucose 153 H 162 H 164 H Calcium Phosphorus Magnesium AST ALT Total Creatine Kinase CK-MB (CK-2) Troponin T Total Protein Albumin HDL Cholesterol TSH Free T3 Index Arterial Blood Glucose Arterial Blood Ionized Calcium Urine pH Urine WBC (Auto) Urine Creatinine Acetaminophen 04/21/21 04/21/21 04/21/21 05:51 05:51 12:12 WBC RBC 3.20 L Hgb Hct MCV 99 H RDW 15.3 H Plt Count Lymph % (Auto) Seg Neutrophils % Seg Neuts % (Manual) Lymphocytes % (Manual) Monocytes % (Manual) Seg Neutrophils # Seg Neutrophils # Man Lymphocytes # (Manual) Monocytes # (Manual) ABG pH POC ABG pCO2 POC ABG pO2 ABG Hemoglobin ABG Oxyhemoglobin ABG Sodium ABG Potassium ABG Chloride ABG Glucose Carboxyhemoglobin Sodium Potassium Chloride 96.6 L BUN 42 H Creatinine 2.1 H Glucose 171 H POC Glucose 167 H Calcium Phosphorus Magnesium AST ALT Total Creatine Kinase CK-MB (CK-2) Troponin T Total Protein Albumin HDL Cholesterol TSH Free T3 Index Arterial Blood Glucose Arterial Blood Ionized Calcium Urine pH Urine WBC (Auto) Urine Creatinine Acetaminophen 04/21/21 04/21/21 04/22/21 17:13 23:42 05:29 WBC RBC Hgb Hct MCV RDW Plt Count Lymph % (Auto) Seg Neutrophils % Seg Neuts % (Manual) Lymphocytes % (Manual) Monocytes % (Manual) Seg Neutrophils # Seg Neutrophils # Man Lymphocytes # (Manual) Monocytes # (Manual) ABG pH POC ABG pCO2 POC ABG pO2 ABG Hemoglobin ABG Oxyhemoglobin ABG Sodium ABG Potassium ABG Chloride ABG Glucose Carboxyhemoglobin Sodium Potassium Chloride BUN Creatinine Glucose POC Glucose 178 H 253 H 208 H Calcium Phosphorus Magnesium AST ALT Total Creatine Kinase CK-MB (CK-2) Troponin T Total Protein Albumin HDL Cholesterol TSH Free T3 Index Arterial Blood Glucose Arterial Blood Ionized Calcium Urine pH Urine WBC (Auto) Urine Creatinine Acetaminophen 04/22/21 04/22/21 04/22/21 08:00 08:00 12:06 WBC 12.9 H RBC Hgb Hct MCV RDW Plt Count Lymph % (Auto) Seg Neutrophils % Seg Neuts % (Manual) Lymphocytes % (Manual) Monocytes % (Manual) Seg Neutrophils # Seg Neutrophils # Man Lymphocytes # (Manual) Monocytes # (Manual) ABG pH POC ABG pCO2 POC ABG pO2 ABG Hemoglobin ABG Oxyhemoglobin ABG Sodium ABG Potassium ABG Chloride ABG Glucose Carboxyhemoglobin Sodium Potassium Chloride BUN 47 H Creatinine 1.9 H Glucose 252 H POC Glucose 298 H Calcium Phosphorus Magnesium AST ALT Total Creatine Kinase CK-MB (CK-2) Troponin T Total Protein Albumin HDL Cholesterol TSH Free T3 Index Arterial Blood Glucose Arterial Blood Ionized Calcium Urine pH Urine WBC (Auto) Urine Creatinine Acetaminophen 04/22/21 04/22/21 04/23/21 17:34 23:01 05:08 WBC RBC Hgb Hct MCV RDW Plt Count Lymph % (Auto) Seg Neutrophils % Seg Neuts % (Manual) Lymphocytes % (Manual) Monocytes % (Manual) Seg Neutrophils # Seg Neutrophils # Man Lymphocytes # (Manual) Monocytes # (Manual) ABG pH POC ABG pCO2 POC ABG pO2 ABG Hemoglobin ABG Oxyhemoglobin ABG Sodium ABG Potassium ABG Chloride ABG Glucose Carboxyhemoglobin Sodium Potassium Chloride BUN Creatinine Glucose POC Glucose 259 H 280 H 223 H Calcium Phosphorus Magnesium AST ALT Total Creatine Kinase CK-MB (CK-2) Troponin T Total Protein Albumin HDL Cholesterol TSH Free T3 Index Arterial Blood Glucose Arterial Blood Ionized Calcium Urine pH Urine WBC (Auto) Urine Creatinine Acetaminophen 04/23/21 04/23/21 04/23/21 07:02 11:57 17:33 WBC RBC Hgb Hct MCV RDW Plt Count Lymph % (Auto) Seg Neutrophils % Seg Neuts % (Manual) Lymphocytes % (Manual) Monocytes % (Manual) Seg Neutrophils # Seg Neutrophils # Man Lymphocytes # (Manual) Monocytes # (Manual) ABG pH POC ABG pCO2 POC ABG pO2 ABG Hemoglobin ABG Oxyhemoglobin ABG Sodium ABG Potassium ABG Chloride ABG Glucose Carboxyhemoglobin Sodium Potassium Chloride 97.7 L BUN 57 H Creatinine 2.0 H Glucose 253 H POC Glucose 310 H 235 H Calcium Phosphorus Magnesium AST ALT Total Creatine Kinase CK-MB (CK-2) Troponin T Total Protein Albumin HDL Cholesterol TSH Free T3 Index Arterial Blood Glucose Arterial Blood Ionized Calcium Urine pH Urine WBC (Auto) Urine Creatinine Acetaminophen 04/23/21 04/24/21 04/24/21 23:15 05:23 05:46 WBC RBC Hgb Hct MCV RDW Plt Count Lymph % (Auto) Seg Neutrophils % Seg Neuts % (Manual) Lymphocytes % (Manual) Monocytes % (Manual) Seg Neutrophils # Seg Neutrophils # Man Lymphocytes # (Manual) Monocytes # (Manual) ABG pH POC ABG pCO2 POC ABG pO2 ABG Hemoglobin ABG Oxyhemoglobin ABG Sodium ABG Potassium ABG Chloride ABG Glucose Carboxyhemoglobin Sodium Potassium 5.2 H D Chloride BUN 68 H Creatinine 2.3 H Glucose 277 H POC Glucose 197 H 274 H Calcium Phosphorus Magnesium AST ALT Total Creatine Kinase CK-MB (CK-2) Troponin T Total Protein Albumin HDL Cholesterol TSH Free T3 Index Arterial Blood Glucose Arterial Blood Ionized Calcium Urine pH Urine WBC (Auto) Urine Creatinine Acetaminophen 04/24/21 04/24/21 04/24/21 11:33 11:52 17:49 WBC RBC Hgb Hct MCV RDW Plt Count Lymph % (Auto) Seg Neutrophils % Seg Neuts % (Manual) Lymphocytes % (Manual) Monocytes % (Manual) Seg Neutrophils # Seg Neutrophils # Man Lymphocytes # (Manual) Monocytes # (Manual) ABG pH POC ABG pCO2 POC ABG pO2 72.7 L ABG Hemoglobin 11.6 L ABG Oxyhemoglobin 92.9 L ABG Sodium ABG Potassium ABG Chloride ABG Glucose 269 H Carboxyhemoglobin Sodium Potassium Chloride BUN Creatinine Glucose POC Glucose 223 H 252 H Calcium Phosphorus Magnesium AST ALT Total Creatine Kinase CK-MB (CK-2) Troponin T Total Protein Albumin HDL Cholesterol TSH Free T3 Index Arterial Blood Glucose 269 H Arterial Blood Ionized Calcium Urine pH Urine WBC (Auto) Urine Creatinine Acetaminophen 04/24/21 04/24/21 04/25/21 21:00 23:48 03:06 WBC RBC Hgb Hct MCV RDW Plt Count Lymph % (Auto) Seg Neutrophils % Seg Neuts % (Manual) Lymphocytes % (Manual) Monocytes % (Manual) Seg Neutrophils # Seg Neutrophils # Man Lymphocytes # (Manual) Monocytes # (Manual) ABG pH 7.521 H 7.451 H POC ABG pCO2 POC ABG pO2 80.7 L 77.1 L ABG Hemoglobin 10.4 L 11.2 L ABG Oxyhemoglobin ABG Sodium ABG Potassium ABG Chloride ABG Glucose 186 H 165 H Carboxyhemoglobin 0 L Sodium Potassium Chloride BUN Creatinine Glucose POC Glucose 141 H Calcium Phosphorus Magnesium AST ALT Total Creatine Kinase CK-MB (CK-2) Troponin T Total Protein Albumin HDL Cholesterol TSH Free T3 Index Arterial Blood Glucose 186 H 165 H Arterial Blood Ionized Calcium Urine pH Urine WBC (Auto) Urine Creatinine Acetaminophen 04/25/21 04/25/21 04/25/21 03:56 03:56 06:03 WBC 12.3 H RBC 3.40 L Hgb Hct MCV RDW Plt Count Lymph % (Auto) Seg Neutrophils % Seg Neuts % (Manual) Lymphocytes % (Manual) Monocytes % (Manual) Seg Neutrophils # Seg Neutrophils # Man Lymphocytes # (Manual) Monocytes # (Manual) ABG pH POC ABG pCO2 POC ABG pO2 ABG Hemoglobin ABG Oxyhemoglobin ABG Sodium ABG Potassium ABG Chloride ABG Glucose Carboxyhemoglobin Sodium Potassium Chloride BUN 78 H Creatinine 2.5 H Glucose 152 H POC Glucose 171 H Calcium Phosphorus Magnesium AST ALT Total Creatine Kinase CK-MB (CK-2) Troponin T Total Protein Albumin HDL Cholesterol TSH Free T3 Index Arterial Blood Glucose Arterial Blood Ionized Calcium Urine pH Urine WBC (Auto) Urine Creatinine Acetaminophen 04/25/21 04/25/21 04/26/21 11:43 15:37 00:05 WBC RBC Hgb Hct MCV RDW Plt Count Lymph % (Auto) Seg Neutrophils % Seg Neuts % (Manual) Lymphocytes % (Manual) Monocytes % (Manual) Seg Neutrophils # Seg Neutrophils # Man Lymphocytes # (Manual) Monocytes # (Manual) ABG pH POC ABG pCO2 POC ABG pO2 ABG Hemoglobin ABG Oxyhemoglobin ABG Sodium ABG Potassium ABG Chloride ABG Glucose Carboxyhemoglobin Sodium Potassium Chloride BUN Creatinine Glucose POC Glucose 181 H 167 H 144 H Calcium Phosphorus Magnesium AST ALT Total Creatine Kinase CK-MB (CK-2) Troponin T Total Protein Albumin HDL Cholesterol TSH Free T3 Index Arterial Blood Glucose Arterial Blood Ionized Calcium Urine pH Urine WBC (Auto) Urine Creatinine Acetaminophen 04/26/21 04/26/21 04/26/21 04:30 05:44 09:30 WBC RBC Hgb Hct MCV RDW Plt Count Lymph % (Auto) Seg Neutrophils % Seg Neuts % (Manual) Lymphocytes % (Manual) Monocytes % (Manual) Seg Neutrophils # Seg Neutrophils # Man Lymphocytes # (Manual) Monocytes # (Manual) ABG pH 7.529 H POC ABG pCO2 POC ABG pO2 66.1 L ABG Hemoglobin 11.2 L ABG Oxyhemoglobin 92.8 L ABG Sodium ABG Potassium ABG Chloride ABG Glucose 216 H Carboxyhemoglobin 0.3 L Sodium Potassium Chloride BUN 82 H Creatinine 2.7 H Glucose 238 H POC Glucose 202 H Calcium Phosphorus Magnesium AST ALT Total Creatine Kinase CK-MB (CK-2) Troponin T Total Protein Albumin HDL Cholesterol TSH Free T3 Index Arterial Blood Glucose 216 H Arterial Blood Ionized Calcium Urine pH Urine WBC (Auto) Urine Creatinine Acetaminophen 04/26/21 04/26/2104/26/21 09:30 11:32 17:21 WBC 24.7 H RBC 3.32 L Hgb Hct MCV RDW Plt Count Lymph % (Auto) Seg Neutrophils % Seg Neuts % (Manual) Lymphocytes % (Manual) Monocytes % (Manual) Seg Neutrophils # Seg Neutrophils # Man Lymphocytes # (Manual) Monocytes # (Manual) ABG pH POC ABG pCO2 POC ABG pO2 ABG Hemoglobin ABG Oxyhemoglobin ABG Sodium ABG Potassium ABG Chloride ABG Glucose Carboxyhemoglobin Sodium Potassium Chloride BUN Creatinine Glucose POC Glucose 245 H 264 H Calcium Phosphorus Magnesium AST ALT Total Creatine Kinase CK-MB (CK-2) Troponin T Total Protein Albumin HDL Cholesterol TSH Free T3 Index Arterial Blood Glucose Arterial Blood Ionized Calcium Urine pH Urine WBC (Auto) Urine Creatinine Acetaminophen 04/26/21 04/27/21 04/27/21 23:18 04:23 04:54 WBC RBC Hgb Hct MCV RDW Plt Count Lymph % (Auto) Seg Neutrophils % Seg Neuts % (Manual) Lymphocytes % (Manual) Monocytes % (Manual) Seg Neutrophils # Seg Neutrophils # Man Lymphocytes # (Manual) Monocytes # (Manual) ABG pH 7.549 H POC ABG pCO2 30.0 L POC ABG pO2 64.9 L ABG Hemoglobin 11 L ABG Oxyhemoglobin 93.3 L ABG Sodium ABG Potassium ABG Chloride ABG Glucose 325 H Carboxyhemoglobin 0.3 L Sodium Potassium Chloride BUN Creatinine Glucose POC Glucose 201 H 298 H Calcium Phosphorus Magnesium AST ALT Total Creatine Kinase CK-MB (CK-2) Troponin T Total Protein Albumin HDL Cholesterol TSH Free T3 Index Arterial Blood Glucose 325 H Arterial Blood Ionized Calcium Urine pH Urine WBC (Auto) Urine Creatinine Acetaminophen 04/27/21 04/27/21 04/27/21 07:52 07:52 11:22 WBC 23.0 H RBC 3.32 L Hgb Hct MCV RDW 15.5 H Plt Count Lymph % (Auto) Seg Neutrophils % Seg Neuts % (Manual) Lymphocytes % (Manual) Monocytes % (Manual) Seg Neutrophils # Seg Neutrophils # Man Lymphocytes # (Manual) Monocytes # (Manual) ABG pH POC ABG pCO2 POC ABG pO2 ABG Hemoglobin ABG Oxyhemoglobin ABG Sodium ABG Potassium ABG Chloride ABG Glucose Carboxyhemoglobin Sodium Potassium 3.5 L Chloride BUN 90 H Creatinine 2.8 H Glucose 286 H POC Glucose 251 H Calcium Phosphorus Magnesium AST ALT Total Creatine Kinase CK-MB (CK-2) Troponin T Total Protein Albumin HDL Cholesterol TSH Free T3 Index Arterial Blood Glucose Arterial Blood Ionized Calcium Urine pH Urine WBC (Auto) Urine Creatinine Acetaminophen 04/27/21 04/27/21 04/27/21 17:21 17:45 23:05 WBC RBC Hgb Hct MCV RDW Plt Count Lymph % (Auto) Seg Neutrophils % Seg Neuts % (Manual) Lymphocytes % (Manual) Monocytes % (Manual) Seg Neutrophils # Seg Neutrophils # Man Lymphocytes # (Manual) Monocytes # (Manual) ABG pH POC ABG pCO2 POC ABG pO2 ABG Hemoglobin ABG Oxyhemoglobin ABG Sodium ABG Potassium ABG Chloride ABG Glucose Carboxyhemoglobin Sodium Potassium Chloride BUN Creatinine Glucose POC Glucose 180 H 178 H 189 H Calcium Phosphorus Magnesium AST ALT Total Creatine Kinase CK-MB (CK-2) Troponin T Total Protein Albumin HDL Cholesterol TSH Free T3 Index Arterial Blood Glucose Arterial Blood Ionized Calcium Urine pH Urine WBC (Auto) Urine Creatinine Acetaminophen 04/28/21 04/28/21 04/28/21 03:14 04:13 04:13 WBC 17.6 H RBC 3.03 L Hgb 9.7 L Hct 29.5 L MCV RDW Plt Count Lymph % (Auto) Seg Neutrophils % Seg Neuts % (Manual) Lymphocytes % (Manual) Monocytes % (Manual) Seg Neutrophils # Seg Neutrophils # Man Lymphocytes # (Manual) Monocytes # (Manual) ABG pH 7.507 H POC ABG pCO2 POC ABG pO2 62.0 L ABG Hemoglobin 10.2 L ABG Oxyhemoglobin 91.9 L ABG Sodium ABG Potassium ABG Chloride ABG Glucose 337 H Carboxyhemoglobin 0.2 L Sodium Potassium Chloride BUN 101 H Creatinine 3.1 H Glucose 304 H POC Glucose Calcium Phosphorus Magnesium AST 61 H ALT 64 H Total Creatine Kinase CK-MB (CK-2) Troponin T Total Protein 6.2 L Albumin 2.6 L HDL Cholesterol TSH Free T3 Index Arterial Blood Glucose 337 H Arterial Blood Ionized Calcium Urine pH Urine WBC (Auto) Urine Creatinine Acetaminophen 04/28/21 04/28/21 04/28/21 05:01 11:28 18:23 WBC RBC Hgb Hct MCV RDW Plt Count Lymph % (Auto) Seg Neutrophils % Seg Neuts % (Manual) Lymphocytes % (Manual) Monocytes % (Manual) Seg Neutrophils # Seg Neutrophils # Man Lymphocytes # (Manual) Monocytes # (Manual) ABG pH POC ABG pCO2 POC ABG pO2 ABG Hemoglobin ABG Oxyhemoglobin ABG Sodium ABG Potassium ABG Chloride ABG Glucose Carboxyhemoglobin Sodium Potassium Chloride BUN Creatinine Glucose POC Glucose 282 H 263 H 200 H Calcium Phosphorus Magnesium AST ALT Total Creatine Kinase CK-MB (CK-2) Troponin T Total Protein Albumin HDL Cholesterol TSH Free T3 Index Arterial Blood Glucose Arterial Blood Ionized Calcium Urine pH Urine WBC (Auto) Urine Creatinine Acetaminophen 04/28/21 04/29/21 04/29/21 23:49 03:24 04:22 WBC RBC Hgb Hct MCV RDW Plt Count Lymph % (Auto) Seg Neutrophils % Seg Neuts % (Manual) Lymphocytes % (Manual) Monocytes % (Manual) Seg Neutrophils # Seg Neutrophils # Man Lymphocytes # (Manual) Monocytes # (Manual) ABG pH 7.546 H POC ABG pCO2 POC ABG pO2 52.4 L ABG Hemoglobin 10.5 L ABG Oxyhemoglobin 88.3 L ABG Sodium ABG Potassium ABG Chloride ABG Glucose 217 H Carboxyhemoglobin 0.4 L Sodium 148 H Potassium Chloride BUN 110 H Creatinine 3.1 H Glucose 208 H POC Glucose 238 H Calcium Phosphorus Magnesium AST ALT Total Creatine Kinase CK-MB (CK-2) Troponin T Total Protein Albumin HDL Cholesterol TSH Free T3 Index Arterial Blood Glucose 217 H Arterial Blood Ionized Calcium Urine pH Urine WBC (Auto) Urine Creatinine Acetaminophen 04/29/21 04/29/21 04/29/21 04:22 05:08 11:26 WBC 15.2 H RBC 3.30 L Hgb 9.8 L Hct MCV RDW Plt Count Lymph % (Auto) Seg Neutrophils % Seg Neuts % (Manual) Lymphocytes % (Manual) Monocytes % (Manual) Seg Neutrophils # Seg Neutrophils # Man Lymphocytes # (Manual) Monocytes # (Manual) ABG pH POC ABG pCO2 POC ABG pO2 ABG Hemoglobin ABG Oxyhemoglobin ABG Sodium ABG Potassium ABG Chloride ABG Glucose Carboxyhemoglobin Sodium Potassium Chloride BUN Creatinine Glucose POC Glucose 181 H 218 H Calcium Phosphorus Magnesium AST ALT Total Creatine Kinase CK-MB (CK-2) Troponin T Total Protein Albumin HDL Cholesterol TSH Free T3 Index Arterial Blood Glucose Arterial Blood Ionized Calcium Urine pH Urine WBC (Auto) Urine Creatinine Acetaminophen 05/30/21 05/30/21 05/31/21 17:06 23:06 03:58 WBC RBC Hgb Hct MCV RDW Plt Count Lymph % (Auto) Seg Neutrophils % Seg Neuts % (Manual) Lymphocytes % (Manual) Monocytes % (Manual) Seg Neutrophils # Seg Neutrophils # Man Lymphocytes # (Manual) Monocytes # (Manual) ABG pH 7.547 H POC ABG pCO2 31.3 L POC ABG pO2 58.4 L ABG Hemoglobin 9.6 L ABG Oxyhemoglobin 91.1 L ABG Sodium ABG Potassium ABG Chloride 108.0 H ABG Glucose 248 H Carboxyhemoglobin 0.2 L Sodium Potassium Chloride BUN Creatinine Glucose POC Glucose 223 H 252 H Calcium Phosphorus Magnesium AST ALT Total Creatine Kinase CK-MB (CK-2) Troponin T Total Protein Albumin HDL Cholesterol TSH Free T3 Index Arterial Blood Glucose 248 H Arterial Blood Ionized Calcium Urine pH Urine WBC (Auto) Urine Creatinine Acetaminophen 04/30/21 04/30/21 04/30/21 05:23 05:54 11:47 WBC RBC Hgb Hct MCV RDW Plt Count Lymph % (Auto) Seg Neutrophils % Seg Neuts % (Manual) Lymphocytes % (Manual) Monocytes % (Manual) Seg Neutrophils # Seg Neutrophils # Man Lymphocytes # (Manual) Monocytes # (Manual) ABG pH POC ABG pCO2 POC ABG pO2 ABG Hemoglobin ABG Oxyhemoglobin ABG Sodium ABG Potassium ABG Chloride ABG Glucose Carboxyhemoglobin Sodium Potassium Chloride BUN 118 H Creatinine 3.3 H Glucose 263 H POC Glucose 244 H 237 H Calcium Phosphorus Magnesium AST ALT Total Creatine Kinase CK-MB (CK-2) Troponin T Total Protein Albumin HDL Cholesterol TSH Free T3 Index Arterial Blood Glucose Arterial Blood Ionized Calcium Urine pH Urine WBC (Auto) Urine Creatinine Acetaminophen 04/30/21 04/30/21 04/30/21 17:26 17:45 23:51 WBC RBC Hgb Hct MCV RDW Plt Count Lymph % (Auto) Seg Neutrophils % Seg Neuts % (Manual) Lymphocytes % (Manual) Monocytes % (Manual) Seg Neutrophils # Seg Neutrophils # Man Lymphocytes # (Manual) Monocytes # (Manual) ABG pH POC ABG pCO2 POC ABG pO2 ABG Hemoglobin ABG Oxyhemoglobin ABG Sodium ABG Potassium ABG Chloride ABG Glucose Carboxyhemoglobin Sodium Potassium Chloride BUN Creatinine Glucose POC Glucose 193 H 197 H Calcium Phosphorus Magnesium AST ALT Total Creatine Kinase CK-MB (CK-2) Troponin T Total Protein Albumin HDL Cholesterol TSH Free T3 Index Arterial Blood Glucose Arterial Blood Ionized Calcium Urine pH Urine WBC (Auto) 48.0 H Urine Creatinine Acetaminophen 05/01/21 05/01/21 05/01/21 04:02 04:57 07:11 WBC 12.3 H RBC 2.83 L Hgb 8.8 L Hct 27.3 L MCV RDW Plt Count Lymph % (Auto) Seg Neutrophils % Seg Neuts % (Manual) 80.0 H Lymphocytes % (Manual) 5.0 L Monocytes % (Manual) Seg Neutrophils # Seg Neutrophils # Man 9.8 H Lymphocytes # (Manual) 0.6 L Monocytes # (Manual) ABG pH 7.466 H POC ABG pCO2 POC ABG pO2 61.4 L ABG Hemoglobin 9.0 L ABG Oxyhemoglobin 91.1 L ABG Sodium ABG Potassium ABG Chloride 110.0 H ABG Glucose 245 H Carboxyhemoglobin Sodium Potassium Chloride BUN Creatinine Glucose POC Glucose 193 H Calcium Phosphorus Magnesium AST ALT Total Creatine Kinase CK-MB (CK-2) Troponin T Total Protein Albumin HDL Cholesterol TSH Free T3 Index Arterial Blood Glucose 245 H Arterial Blood Ionized Calcium Urine pH Urine WBC (Auto) Urine Creatinine Acetaminophen 05/01/21 05/01/21 05/01/21 07:11 07:45 11:30 WBC RBC Hgb Hct MCV RDW Plt Count Lymph % (Auto) Seg Neutrophils % Seg Neuts % (Manual) Lymphocytes % (Manual) Monocytes % (Manual) Seg Neutrophils # Seg Neutrophils # Man Lymphocytes # (Manual) Monocytes # (Manual) ABG pH POC ABG pCO2 POC ABG pO2 ABG Hemoglobin ABG Oxyhemoglobin ABG Sodium ABG Potassium ABG Chloride ABG Glucose Carboxyhemoglobin Sodium 146 H Potassium Chloride 108.4 H BUN 122 H Creatinine 3.4 H Glucose 235 H POC Glucose 212 H 247 H Calcium Phosphorus Magnesium AST ALT Total Creatine Kinase CK-MB (CK-2) Troponin T Total Protein Albumin HDL Cholesterol TSH Free T3 Index Arterial Blood Glucose Arterial Blood Ionized Calcium Urine pH Urine WBC (Auto) Urine Creatinine Acetaminophen 05/01/21 05/01/21 05/01/21 11:31 17:42 23:49 WBC RBC Hgb Hct MCV RDW Plt Count Lymph % (Auto) Seg Neutrophils % Seg Neuts % (Manual) Lymphocytes % (Manual) Monocytes % (Manual) Seg Neutrophils # Seg Neutrophils # Man Lymphocytes # (Manual) Monocytes # (Manual) ABG pH POC ABG pCO2 POC ABG pO2 ABG Hemoglobin ABG Oxyhemoglobin ABG Sodium ABG Potassium ABG Chloride ABG Glucose Carboxyhemoglobin Sodium Potassium Chloride BUN Creatinine Glucose POC Glucose 258 H 171 H 167 H Calcium Phosphorus Magnesium AST ALT Total Creatine Kinase CK-MB (CK-2) Troponin T Total Protein Albumin HDL Cholesterol TSH Free T3 Index Arterial Blood Glucose Arterial Blood Ionized Calcium Urine pH Urine WBC (Auto) Urine Creatinine Acetaminophen 05/02/21 05/02/21 05/02/21 05:12 08:34 11:53 WBC RBC Hgb Hct MCV RDW Plt Count Lymph % (Auto) Seg Neutrophils % Seg Neuts % (Manual) Lymphocytes % (Manual) Monocytes % (Manual) Seg Neutrophils # Seg Neutrophils # Man Lymphocytes # (Manual) Monocytes # (Manual) ABG pH POC ABG pCO2 POC ABG pO2 ABG Hemoglobin ABG Oxyhemoglobin ABG Sodium ABG Potassium ABG Chloride ABG Glucose Carboxyhemoglobin Sodium 148 H Potassium Chloride 110.4 H BUN 124 H Creatinine 3.4 H Glucose 208 H POC Glucose 163 H 185 H Calcium 8.3 L Phosphorus Magnesium AST ALT Total Creatine Kinase CK-MB (CK-2) Troponin T Total Protein Albumin HDL Cholesterol TSH Free T3 Index Arterial Blood Glucose Arterial Blood Ionized Calcium Urine pH Urine WBC (Auto) Urine Creatinine Acetaminophen 05/02/21 05/02/21 05/03/21 17:28 23:32 03:57 WBC RBC Hgb Hct MCV RDW Plt Count Lymph % (Auto) Seg Neutrophils % Seg Neuts % (Manual) Lymphocytes % (Manual) Monocytes % (Manual) Seg Neutrophils # Seg Neutrophils # Man Lymphocytes # (Manual) Monocytes # (Manual) ABG pH 7.531 H POC ABG pCO2 31.0 L POC ABG pO2 64.3 L ABG Hemoglobin 9.0 L ABG Oxyhemoglobin 92.6 L ABG Sodium 145.7 H ABG Potassium ABG Chloride 112.0 H ABG Glucose 202 H Carboxyhemoglobin Sodium Potassium Chloride BUN Creatinine Glucose POC Glucose 147 H 202 H Calcium Phosphorus Magnesium AST ALT Total Creatine Kinase CK-MB (CK-2) Troponin T Total Protein Albumin HDL Cholesterol TSH Free T3 Index Arterial Blood Glucose 202 H Arterial Blood Ionized Calcium Urine pH Urine WBC (Auto) Urine Creatinine Acetaminophen 05/03/21 05/03/21 05/03/21 05:14 05:44 11:10 WBC RBC Hgb Hct MCV RDW Plt Count Lymph % (Auto) Seg Neutrophils % Seg Neuts % (Manual) Lymphocytes % (Manual) Monocytes % (Manual) Seg Neutrophils # Seg Neutrophils # Man Lymphocytes # (Manual) Monocytes # (Manual) ABG pH POC ABG pCO2 POC ABG pO2 ABG Hemoglobin ABG Oxyhemoglobin ABG Sodium ABG Potassium ABG Chloride ABG Glucose Carboxyhemoglobin Sodium 147 H Potassium Chloride 109.7 H BUN 121 H Creatinine 3.1 H Glucose 190 H POC Glucose 175 H 202 H Calcium Phosphorus Magnesium AST ALT Total Creatine Kinase CK-MB (CK-2) Troponin T Total Protein Albumin HDL Cholesterol TSH Free T3 Index Arterial Blood Glucose Arterial Blood Ionized Calcium Urine pH Urine WBC (Auto) Urine Creatinine Acetaminophen 05/03/21 05/04/21 05/04/21 23:58 04:57 04:57 WBC RBC 2.61 L Hgb 8.2 L Hct 25.4 L MCV 98 H RDW 15.3 H Plt Count Lymph % (Auto) Seg Neutrophils % Seg Neuts % (Manual) Lymphocytes % (Manual) Monocytes % (Manual) Seg Neutrophils # Seg Neutrophils # Man Lymphocytes # (Manual) Monocytes # (Manual) ABG pH POC ABG pCO2 POC ABG pO2 ABG Hemoglobin ABG Oxyhemoglobin ABG Sodium ABG Potassium ABG Chloride ABG Glucose Carboxyhemoglobin Sodium 147 H Potassium Chloride 111.0 H BUN 104 H Creatinine 2.8 H Glucose 179 H POC Glucose 131 H Calcium Phosphorus Magnesium AST ALT Total Creatine Kinase CK-MB (CK-2) Troponin T Total Protein Albumin HDL Cholesterol TSH Free T3 Index Arterial Blood Glucose Arterial Blood Ionized Calcium Urine pH Urine WBC (Auto) Urine Creatinine Acetaminophen 05/04/21 05/04/21 05/04/21 05:19 11:28 17:02 WBC RBC Hgb Hct MCV RDW Plt Count Lymph % (Auto) Seg Neutrophils % Seg Neuts % (Manual) Lymphocytes % (Manual) Monocytes % (Manual) Seg Neutrophils # Seg Neutrophils # Man Lymphocytes # (Manual) Monocytes # (Manual) ABG pH POC ABG pCO2 POC ABG pO2 ABG Hemoglobin ABG Oxyhemoglobin ABG Sodium ABG Potassium ABG Chloride ABG Glucose Carboxyhemoglobin Sodium Potassium Chloride BUN Creatinine Glucose POC Glucose 168 H 206 H 213 H Calcium Phosphorus Magnesium AST ALT Total Creatine Kinase CK-MB (CK-2) Troponin T Total Protein Albumin HDL Cholesterol TSH Free T3 Index Arterial Blood Glucose Arterial Blood Ionized Calcium Urine pH Urine WBC (Auto) Urine Creatinine Acetaminophen 05/04/21 05/05/21 05/05/21 23:13 04:55 05:15 WBC RBC Hgb Hct MCV RDW Plt Count Lymph % (Auto) Seg Neutrophils % Seg Neuts % (Manual) Lymphocytes % (Manual) Monocytes % (Manual) Seg Neutrophils # Seg Neutrophils # Man Lymphocytes # (Manual) Monocytes # (Manual) ABG pH POC ABG pCO2 POC ABG pO2 ABG Hemoglobin ABG Oxyhemoglobin ABG Sodium ABG Potassium ABG Chloride ABG Glucose Carboxyhemoglobin Sodium Potassium Chloride BUN 91 H Creatinine 2.4 H Glucose 255 H POC Glucose 232 H 235 H Calcium Phosphorus Magnesium AST ALT Total Creatine Kinase CK-MB (CK-2) Troponin T Total Protein Albumin HDL Cholesterol TSH Free T3 Index Arterial Blood Glucose Arterial Blood Ionized Calcium Urine pH Urine WBC (Auto) Urine Creatinine Acetaminophen 05/05/21 05/05/21 05/05/21 11:41 17:46 23:40 WBC RBC Hgb Hct MCV RDW Plt Count Lymph % (Auto) Seg Neutrophils % Seg Neuts % (Manual) Lymphocytes % (Manual) Monocytes % (Manual) Seg Neutrophils # Seg Neutrophils # Man Lymphocytes # (Manual) Monocytes # (Manual) ABG pH POC ABG pCO2 POC ABG pO2 ABG Hemoglobin ABG Oxyhemoglobin ABG Sodium ABG Potassium ABG Chloride ABG Glucose Carboxyhemoglobin Sodium Potassium Chloride BUN Creatinine Glucose POC Glucose 199 H 231 H 224 H Calcium Phosphorus Magnesium AST ALT Total Creatine Kinase CK-MB (CK-2) Troponin T Total Protein Albumin HDL Cholesterol TSH Free T3 Index Arterial Blood Glucose Arterial Blood Ionized Calcium Urine pH Urine WBC (Auto) Urine Creatinine Acetaminophen 05/06/21 05/06/21 05/06/21 04:00 05:37 07:12 WBC RBC Hgb Hct MCV RDW Plt Count Lymph % (Auto) Seg Neutrophils % Seg Neuts % (Manual) Lymphocytes % (Manual) Monocytes % (Manual) Seg Neutrophils # Seg Neutrophils # Man Lymphocytes # (Manual) Monocytes # (Manual) ABG pH 7.464 H POC ABG pCO2 POC ABG pO2 74.2 L ABG Hemoglobin 10.5 L ABG Oxyhemoglobin ABG Sodium ABG Potassium ABG Chloride 110.0 H ABG Glucose 214 H Carboxyhemoglobin 0.4 L Sodium 146 H Potassium Chloride 110.4 H BUN 82 H Creatinine 2.3 H Glucose 154 H POC Glucose 165 H Calcium Phosphorus Magnesium AST ALT Total Creatine Kinase CK-MB (CK-2) Troponin T Total Protein Albumin HDL Cholesterol TSH Free T3 Index Arterial Blood Glucose 214 H Arterial Blood Ionized Calcium Urine pH Urine WBC (Auto) Urine Creatinine Acetaminophen 05/06/21 05/06/21 05/07/21 17:11 23:40 05:26 WBC RBC Hgb Hct MCV RDW Plt Count Lymph % (Auto) Seg Neutrophils % Seg Neuts % (Manual) Lymphocytes % (Manual) Monocytes % (Manual) Seg Neutrophils # Seg Neutrophils # Man Lymphocytes # (Manual) Monocytes # (Manual) ABG pH POC ABG pCO2 POC ABG pO2 ABG Hemoglobin ABG Oxyhemoglobin ABG Sodium ABG Potassium ABG Chloride ABG Glucose Carboxyhemoglobin Sodium Potassium Chloride BUN Creatinine Glucose POC Glucose 126 H 165 H 156 H Calcium Phosphorus Magnesium AST ALT Total Creatine Kinase CK-MB (CK-2) Troponin T Total Protein Albumin HDL Cholesterol TSH Free T3 Index Arterial Blood Glucose Arterial Blood Ionized Calcium Urine pH Urine WBC (Auto) Urine Creatinine Acetaminophen 05/07/21 05/07/21 05/07/21 08:20 08:20 11:35 WBC RBC 2.58 L Hgb 7.9 L Hct 24.9 L MCV RDW Plt Count Lymph % (Auto) Seg Neutrophils % Seg Neuts % (Manual) Lymphocytes % (Manual) Monocytes % (Manual) Seg Neutrophils # Seg Neutrophils # Man Lymphocytes # (Manual) Monocytes # (Manual) ABG pH POC ABG pCO2 POC ABG pO2 ABG Hemoglobin ABG Oxyhemoglobin ABG Sodium ABG Potassium ABG Chloride ABG Glucose Carboxyhemoglobin Sodium Potassium Chloride 108.4 H BUN 81 H Creatinine 2.4 H Glucose 133 H POC Glucose 112 H Calcium Phosphorus Magnesium AST ALT Total Creatine Kinase CK-MB (CK-2) Troponin T Total Protein Albumin HDL Cholesterol TSH Free T3 Index Arterial Blood Glucose Arterial Blood Ionized Calcium Urine pH Urine WBC (Auto) Urine Creatinine Acetaminophen 05/07/21 05/07/21 05/08/21 17:51 23:27 03:05 WBC RBC Hgb Hct MCV RDW Plt Count Lymph % (Auto) Seg Neutrophils % Seg Neuts % (Manual) Lymphocytes % (Manual) Monocytes % (Manual) Seg Neutrophils # Seg Neutrophils # Man Lymphocytes # (Manual) Monocytes # (Manual) ABG pH 7.454 H POC ABG pCO2 POC ABG pO2 82.1 L ABG Hemoglobin 8.1 L ABG Oxyhemoglobin ABG Sodium ABG Potassium 4.8 H ABG Chloride 111.0 H ABG Glucose 194 H Carboxyhemoglobin Sodium Potassium Chloride BUN Creatinine Glucose POC Glucose 136 H 133 H Calcium Phosphorus Magnesium AST ALT Total Creatine Kinase CK-MB (CK-2) Troponin T Total Protein Albumin HDL Cholesterol TSH Free T3 Index Arterial Blood Glucose 194 H Arterial Blood Ionized Calcium Urine pH Urine WBC (Auto) Urine Creatinine Acetaminophen 05/08/21 05/08/21 05/08/21 05:52 07:07 07:07 WBC 12.0 H RBC 2.94 L Hgb 9.0 L Hct 28.5 L MCV RDW Plt Count Lymph % (Auto) Seg Neutrophils % Seg Neuts % (Manual) Lymphocytes % (Manual) Monocytes % (Manual) Seg Neutrophils # Seg Neutrophils # Man Lymphocytes # (Manual) Monocytes # (Manual) ABG pH POC ABG pCO2 POC ABG pO2 ABG Hemoglobin ABG Oxyhemoglobin ABG Sodium ABG Potassium ABG Chloride ABG Glucose Carboxyhemoglobin Sodium Potassium Chloride BUN 73 H Creatinine 2.2 H Glucose 211 H POC Glucose 194 H Calcium Phosphorus Magnesium AST ALT Total Creatine Kinase CK-MB (CK-2) Troponin T Total Protein Albumin HDL Cholesterol TSH Free T3 Index Arterial Blood Glucose Arterial Blood Ionized Calcium Urine pH Urine WBC (Auto) Urine Creatinine Acetaminophen 05/08/21 05/08/21 05/08/21 11:19 17:20 23:22 WBC RBC Hgb Hct MCV RDW Plt Count Lymph % (Auto) Seg Neutrophils % Seg Neuts % (Manual) Lymphocytes % (Manual) Monocytes % (Manual) Seg Neutrophils # Seg Neutrophils # Man Lymphocytes # (Manual) Monocytes # (Manual) ABG pH POC ABG pCO2 POC ABG pO2 ABG Hemoglobin ABG Oxyhemoglobin ABG Sodium ABG Potassium ABG Chloride ABG Glucose Carboxyhemoglobin Sodium Potassium Chloride BUN Creatinine Glucose POC Glucose 231 H 251 H 295 H Calcium Phosphorus Magnesium AST ALT Total Creatine Kinase CK-MB (CK-2) Troponin T Total Protein Albumin HDL Cholesterol TSH Free T3 Index Arterial Blood Glucose Arterial Blood Ionized Calcium Urine pH Urine WBC (Auto) Urine Creatinine Acetaminophen 05/09/21 05/09/21 05/09/21 05:39 07:36 11:39 WBC RBC Hgb Hct MCV RDW Plt Count Lymph % (Auto) Seg Neutrophils % Seg Neuts % (Manual) Lymphocytes % (Manual) Monocytes % (Manual) Seg Neutrophils # Seg Neutrophils # Man Lymphocytes # (Manual) Monocytes # (Manual) ABG pH POC ABG pCO2 POC ABG pO2 ABG Hemoglobin ABG Oxyhemoglobin ABG Sodium ABG Potassium ABG Chloride ABG Glucose Carboxyhemoglobin Sodium Potassium Chloride BUN 64 H Creatinine 2.2 H Glucose 308 H POC Glucose 240 H 330 H Calcium Phosphorus Magnesium AST ALT Total Creatine Kinase CK-MB (CK-2) Troponin T Total Protein Albumin HDL Cholesterol TSH Free T3 Index Arterial Blood Glucose Arterial Blood Ionized Calcium Urine pH Urine WBC (Auto) Urine Creatinine Acetaminophen 05/09/21 05/09/21 05/10/21 17:37 23:15 05:15 WBC RBC Hgb Hct MCV RDW Plt Count Lymph % (Auto) Seg Neutrophils % Seg Neuts % (Manual) Lymphocytes % (Manual) Monocytes % (Manual) Seg Neutrophils # Seg Neutrophils # Man Lymphocytes # (Manual) Monocytes # (Manual) ABG pH POC ABG pCO2 POC ABG pO2 ABG Hemoglobin ABG Oxyhemoglobin ABG Sodium ABG Potassium ABG Chloride ABG Glucose Carboxyhemoglobin Sodium Potassium Chloride BUN Creatinine Glucose POC Glucose 174 H 152 H 146 H Calcium Phosphorus Magnesium AST ALT Total Creatine Kinase CK-MB (CK-2) Troponin T Total Protein Albumin HDL Cholesterol TSH Free T3 Index Arterial Blood Glucose Arterial Blood Ionized Calcium Urine pH Urine WBC (Auto) Urine Creatinine Acetaminophen 05/10/21 05/10/21 05/10/21 05:36 11:29 17:35 WBC RBC Hgb Hct MCV RDW Plt Count Lymph % (Auto) Seg Neutrophils % Seg Neuts % (Manual) Lymphocytes % (Manual) Monocytes % (Manual) Seg Neutrophils # Seg Neutrophils # Man Lymphocytes # (Manual) Monocytes # (Manual) ABG pH POC ABG pCO2 POC ABG pO2 ABG Hemoglobin ABG Oxyhemoglobin ABG Sodium ABG Potassium ABG Chloride ABG Glucose Carboxyhemoglobin Sodium Potassium Chloride 110.7 H BUN 54 H Creatinine 2.2 H Glucose 164 H POC Glucose 202 H 109 H Calcium Phosphorus Magnesium AST ALT Total Creatine Kinase CK-MB (CK-2) Troponin T Total Protein Albumin HDL Cholesterol TSH Free T3 Index Arterial Blood Glucose Arterial Blood Ionized Calcium Urine pH Urine WBC (Auto) Urine Creatinine Acetaminophen 05/11/21 05/11/21 05/11/21 05:38 07:10 11:54 WBC RBC Hgb Hct MCV RDW Plt Count Lymph % (Auto) Seg Neutrophils % Seg Neuts % (Manual) Lymphocytes % (Manual) Monocytes % (Manual) Seg Neutrophils # Seg Neutrophils # Man Lymphocytes # (Manual) Monocytes # (Manual) ABG pH POC ABG pCO2 POC ABG pO2 ABG Hemoglobin ABG Oxyhemoglobin ABG Sodium ABG Potassium ABG Chloride ABG Glucose Carboxyhemoglobin Sodium Potassium 5.2 H Chloride 108.8 H BUN 50 H Creatinine 2.2 H Glucose 176 H POC Glucose 135 H 219 H Calcium Phosphorus Magnesium AST ALT Total Creatine Kinase CK-MB (CK-2) Troponin T Total Protein Albumin HDL Cholesterol TSH Free T3 Index Arterial Blood Glucose Arterial Blood Ionized Calcium Urine pH Urine WBC (Auto) Urine Creatinine Acetaminophen 05/11/21 05/11/21 05/12/21 17:51 22:50 04:51 WBC RBC Hgb Hct MCV RDW Plt Count Lymph % (Auto) Seg Neutrophils % Seg Neuts % (Manual) Lymphocytes % (Manual) Monocytes % (Manual) Seg Neutrophils # Seg Neutrophils # Man Lymphocytes # (Manual) Monocytes # (Manual) ABG pH POC ABG pCO2 POC ABG pO2 ABG Hemoglobin ABG Oxyhemoglobin ABG Sodium ABG Potassium ABG Chloride ABG Glucose Carboxyhemoglobin Sodium Potassium Chloride 108.2 H BUN 49 H Creatinine 2.2 H Glucose 161 H POC Glucose 169 H 118 H Calcium Phosphorus Magnesium AST ALT Total Creatine Kinase CK-MB (CK-2) Troponin T Total Protein Albumin HDL Cholesterol TSH Free T3 Index Arterial Blood Glucose Arterial Blood Ionized Calcium Urine pH Urine WBC (Auto) Urine Creatinine Acetaminophen 05/12/21 05/12/21 05/12/21 05:05 10:31 11:50 WBC RBC Hgb Hct MCV RDW Plt Count Lymph % (Auto) Seg Neutrophils % Seg Neuts % (Manual) Lymphocytes % (Manual) Monocytes % (Manual) Seg Neutrophils # Seg Neutrophils # Man Lymphocytes # (Manual) Monocytes # (Manual) ABG pH 7.498 H POC ABG pCO2 POC ABG pO2 75.8 L ABG Hemoglobin 7.3 L ABG Oxyhemoglobin 93.4 L ABG Sodium ABG Potassium ABG Chloride 108.0 H ABG Glucose 199 H Carboxyhemoglobin 1.6 H Sodium Potassium Chloride BUN Creatinine Glucose POC Glucose 160 H 160 H Calcium Phosphorus Magnesium AST ALT Total Creatine Kinase CK-MB (CK-2) Troponin T Total Protein Albumin HDL Cholesterol TSH Free T3 Index Arterial Blood Glucose 199 H Arterial Blood Ionized Calcium Urine pH Urine WBC (Auto) Urine Creatinine Acetaminophen 05/12/21 05/12/21 05/13/21 17:39 23:36 05:49 WBC RBC Hgb Hct MCV RDW Plt Count Lymph % (Auto) Seg Neutrophils % Seg Neuts % (Manual) Lymphocytes % (Manual) Monocytes % (Manual) Seg Neutrophils # Seg Neutrophils # Man Lymphocytes # (Manual) Monocytes # (Manual) ABG pH POC ABG pCO2 POC ABG pO2 ABG Hemoglobin ABG Oxyhemoglobin ABG Sodium ABG Potassium ABG Chloride ABG Glucose Carboxyhemoglobin Sodium Potassium Chloride BUN Creatinine Glucose POC Glucose 148 H 148 H 173 H Calcium Phosphorus Magnesium AST ALT Total Creatine Kinase CK-MB (CK-2) Troponin T Total Protein Albumin HDL Cholesterol TSH Free T3 Index Arterial Blood Glucose Arterial Blood Ionized Calcium Urine pH Urine WBC (Auto) Urine Creatinine Acetaminophen 05/13/21 05/13/21 05:58 13:09 WBC RBC Hgb Hct MCV RDW Plt Count Lymph % (Auto) Seg Neutrophils % Seg Neuts % (Manual) Lymphocytes % (Manual) Monocytes % (Manual) Seg Neutrophils # Seg Neutrophils # Man Lymphocytes # (Manual) Monocytes # (Manual) ABG pH POC ABG pCO2 POC ABG pO2 ABG Hemoglobin ABG Oxyhemoglobin ABG Sodium ABG Potassium ABG Chloride ABG Glucose Carboxyhemoglobin Sodium Potassium Chloride 108.0 H BUN 53 H Creatinine 2.2 H Glucose 178 H POC Glucose 191 H Calcium Phosphorus Magnesium AST ALT Total Creatine Kinase CK-MB (CK-2) Troponin T Total Protein Albumin HDL Cholesterol TSH Free T3 Index Arterial Blood Glucose Arterial Blood Ionized Calcium Urine pH Urine WBC (Auto) Urine Creatinine Acetaminophen Allied health notes reviewed: nursing
[2021-05-13] MEDS: LATANOPROST 0.005% OPHTH SOLN 2.5 ML OU SCH (18:33)
[2021-05-13] MEDS: PRAVASTATIN 20 MG TAB PO SCH (21:11)
[2021-05-14] MEDS: ACETYLCYSTEINE 20% 200 MG/1 ML *FOR INHALATION USE INHALATION SCH ×3 (00:21→16:46)
[2021-05-14] MEDS: ALBUTEROL 2.5 MG/3 ML NEBU IH PRN ×3 (00:21→16:46)
[2021-05-14] MEDS: INSULIN LISPRO 100 UNIT/ML SUB-Q SCH ×5 (06:48→23:00)
[2021-05-14] MEDS: LEVOTHYROXINE 25 MCG TAB PO SCH (06:49)
[2021-05-14] MEDS: hydrALAZINE 25 MG TAB PO SCH ×3 (06:49→22:56)
[2021-05-14 09:17] LABS: Calcium 9.6 mg/dL (8.4-10.2)
[2021-05-14 09:27] LABS: Hematocrit 21.2 % (30.3-42.9); Mean Corpuscular HGB Conc 33 % (30-34); Mean Corpuscular Volume 98 fl (79-97); Platelet Count 241 K/mm3 (140-440); Red Blood Count 2.16 M/mm3 (3.65-5.03)
[2021-05-14] MEDS: INSULIN NPH/REGULAR 70/30 INJ SUB-Q SCH ×2 (10:50→17:32)
[2021-05-14] MEDS: amLODIPine 10 MG TAB PO SCH (10:50)
[2021-05-14] MEDS: ASPIRIN 81 MG TAB CHEW PO SCH (10:51)
[2021-05-14] MEDS: HEPARIN 5,000 UNIT/1 ML VIAL SUB-Q SCH ×2 (10:51→23:20)
[2021-05-14] MEDS: DOCUSATE SODIUM 100 MG/10 ML ORAL LIQD PO SCH ×2 (10:51→22:55)
[2021-05-14] MEDS: TAMSULOSIN 0.4 MG CAP PO SCH (10:51)
[2021-05-14] MEDS: METOPROLOL TARTRATE 25 MG TAB PO SCH ×2 (10:51→22:55)
[2021-05-14] MEDS: FAMOTIDINE 20 MG TAB PO SCH (10:52)
[2021-05-14] MEDS: BRIMONIDINE 0.15% OPHTH SOLN OU SCH ×2 (10:52→23:21)
[2021-05-14] MEDS: TIMOLOL 0.5% OPHTH SOLN 5 ML OU SCH (10:52)
[2021-05-14] MEDS: SCOPOLAMINE TRANSDERMAL PATCH 72 HR TD SCH (10:52)
--- NOTE | 2021-05-14 14:47 | Progress Note ---
Assessment and Plan Acute respiratory failure, on mechanical ventilatory support. Acute toxic metabolic encephalopathy Hypoglycemia ROJELIO Hyperkalemia Rhabdomyolysis Possible seizure activity DM II HTN CAD Obesity H/O breast cancer H/O TIA Leukocytosis Elevated serum TSH, possible hypothyroidism - slowly advance t-piece trials as tolerated - rest on full support if fails - LTAC evaluation ongoing - continue care as below otherwise; - continue to wean supplemental oxygen for target O2 sat's > 90% acutely - VAP bundle addressed - continue lung protective strategies - continue bronchodilators with pulmonary hygiene per RT - continue Daily SAT and SBT assessment as tolerated - wean per pulmonary driven protocols otherwise - continue accuchecks with glycemic control per SSI (While critically ill target blood glucose of 140-180 mg/dL; avoid hypoglycemia) - sedation prn for target RASS 0 to -1 - avoid nephrotoxins, renally dose all medications - continue to avoid benzodiazepine's, reduce the possibility of delirium - complete AB's per ID rec's re: Cefepime and Flagyl - follow clinically trend fevers / WBC - prn analgesia per CPOT score - Maintenance of sleep-wake cycle, avoid delirium - continue enteral nutritional support at goal rate as tolerated - G.I. & VTE prophylaxis - PT/OT/ROM exercises - continue Flomax re: retention - continue mobility protocols for pressure ulcer prophylaxis - Monitor hemodynamics closely - continue other care per attending / other consultants - discharge planning ongoing concurrently .... Re-evaluate in am & prn CONDITION: CRITICAL PROGNOSIS: GUARDED CODE STATUS: FULL CODE The high probability of a clinically significant, sudden or life-threatening deterioration of the [respiratory, cardiovascular, GI & neurologic] system(s) required my full and direct attention, intervention and personal management. The aggregate critical care time was [32] minutes without overlap. Time includes spent on; [x] Data Review and interpretation [x] Patient assessment and monitoring of vital signs [x] Documentation [x] Medication orders and management Subjective Date of service: 05/14/21 Principal diagnosis: Ac. resp failure; AMS; Hypoglycemia; ROJELIO; Hyperkalemia; DM II Interval history: Patient is seen today for: Acute respiratory failure; AMS; Hypoglycemia; ROJELIO; Hyperkalemia; DM II; H/O breast cancer; Elevated serum TSH, possible hypothyroidism Seen and examined at bedside; 24hour events reviewed; nursing and respiratory care staff consulted; no adverse overnight events reported to me; resting peacefully in bed; remains on MVS; tired out on t-piece overnight and back on full support; opens eyes to name calling; no emesis or overt aspiration Objective Vital Signs - 12hr 05/14/21 05/14/21 05/14/21 03:01 04:00 04:01 Temperature 99.2 F Pulse Rate 81 84 86 Pulse Rate [ Anterior Bilateral Throughout] Respiratory 24 23 Rate Respiratory Rate [Anterior Bilateral Throughout] Blood Pressure 138/55 151/65 138/55 O2 Sat by Pulse 100 100 100 Oximetry O2 Sat by Pulse Oximetry [ Assessment] 05/14/21 05/14/21 05/14/21 05:01 06:01 06:49 Temperature Pulse Rate 81 79 75 Pulse Rate [ Anterior Bilateral Throughout] Respiratory 16 18 Rate Respiratory Rate [Anterior Bilateral Throughout] Blood Pressure 151/65 143/52 143/52 O2 Sat by Pulse 100 100 Oximetry O2 Sat by Pulse Oximetry [ Assessment] 05/14/21 05/14/21 05/14/21 07:00 08:00 08:32 Temperature 97.9 F Pulse Rate 76 80 Pulse Rate [ Anterior Bilateral Throughout] Respiratory 22 14 Rate Respiratory Rate [Anterior Bilateral Throughout] Blood Pressure 132/51 131/51 O2 Sat by Pulse 100 97 100 Oximetry O2 Sat by Pulse Oximetry [ Assessment] 05/14/21 05/14/21 05/14/21 08:33 08:52 09:00 Temperature Pulse Rate 80 78 Pulse Rate [ 80 Anterior Bilateral Throughout] Respiratory 23 22 Rate Respiratory 23 Rate [Anterior Bilateral Throughout] Blood Pressure 144/55 133/53 O2 Sat by Pulse 100 99 Oximetry O2 Sat by Pulse Oximetry [ Assessment] 05/14/21 05/14/21 05/14/21 10:00 10:01 11:00 Temperature Pulse Rate 85 81 Pulse Rate [ Anterior Bilateral Throughout] Respiratory 26 H 15 Rate Respiratory Rate [Anterior Bilateral Throughout] Blood Pressure 143/55 139/57 O2 Sat by Pulse 100 100 100 Oximetry O2 Sat by Pulse 100 Oximetry [ Assessment] 05/14/21 05/14/21 05/14/21 11:56 12:00 12:01 Temperature Pulse Rate 75 75 Pulse Rate [ Anterior Bilateral Throughout] Respiratory 20 21 27 H Rate Respiratory Rate [Anterior Bilateral Throughout] Blood Pressure 139/57 145/44 145/44 O2 Sat by Pulse 100 100 100 Oximetry O2 Sat by Pulse Oximetry [ Assessment] 05/14/21 05/14/21 12:56 13:01 Temperature 98.5 F Pulse Rate 71 Pulse Rate [ Anterior Bilateral Throughout] Respiratory 20 Rate Respiratory Rate [Anterior Bilateral Throughout] Blood Pressure 130/51 O2 Sat by Pulse 100 Oximetry O2 Sat by Pulse Oximetry [ Assessment] Constitutional: no acute distress, other (elderly obese female with mildly increased respiratory effort at rest ) Eyes: non-icteric ENT: oropharynx moist, oropharyngeal exudate pre, other (+ midline tracheostomy without bleeding stoma) Neck: supple, no lymphadenopathy, no JVD, other (large circumference) Effort: mildly labored Ascultation: Bilateral: diminished breath sounds, rhonchi Percussion: Bilateral: not dull Cardiovascular: regular rate and rhythm, other (S1,S2) Gastrointestinal: normoactive bowel sounds, hypoactive bowel sounds, non-tender, non-distended (protuberant) Integumentary: normal Extremities: no cyanosis, no edema, pulses normal, no ischemia or petechiae Neurologic: non-focal exam (tracks voice), pupils equal and round, CN II-XII normal, motor strength normal and Psychiatric: other (falt affect) CBC and BMP: 05/15/21 05:51 05/15/21 05:51 ABG, PT/INR, D-dimer: ABG ABG pH 7.498 (7.320-7.450) H 05/12/21 10:31 POC ABG pCO2 35.2 mmHg (32.0-48.0) 05/12/21 10:31 POC ABG pO2 75.8 mmHg (83-108) L 05/12/21 10:31 POC ABG HCO3 26.7 05/12/21 10:31 ABG O2 Saturation 95.2 (0-100) 05/12/21 10:31 PT/INR, D-dimer PT 14.8 Sec. (12.2-14.9) 05/07/21 08:20 INR 1.11 (0.87-1.13) 05/07/21 08:20 Abnormal lab findings: Abnormal Labs 04/15/21 04/15/21 04/15/21 17:00 17:20 17:20 WBC 11.2 H RBC Hgb Hct 43.0 H MCV MCH RDW 15.3 H Plt Count Lymph % (Auto) 12.8 L Seg Neutrophils % 82.4 H Seg Neuts % (Manual) Lymphocytes % (Manual) Monocytes % (Manual) Seg Neutrophils # 9.3 H Seg Neutrophils # Man Lymphocytes # (Manual) Monocytes # (Manual) ABG pH POC ABG pCO2 POC ABG pO2 ABG Hemoglobin ABG Oxyhemoglobin ABG Sodium ABG Potassium ABG Chloride ABG Glucose Carboxyhemoglobin Sodium 129 L Potassium 7.1 H* Chloride 91.9 L BUN 35 H Creatinine 2.8 H Glucose POC Glucose 191 H Calcium Phosphorus Magnesium AST 69 H ALT Total Creatine Kinase CK-MB (CK-2) Troponin T Total Protein Albumin HDL Cholesterol TSH Free T3 Index Arterial Blood Glucose Arterial Blood Ionized Calcium Urine pH Urine WBC (Auto) Urine Creatinine Acetaminophen 04/15/21 04/15/21 04/15/21 17:20 17:20 17:20 WBC RBC Hgb Hct MCV MCH RDW Plt Count Lymph % (Auto) Seg Neutrophils % Seg Neuts % (Manual) Lymphocytes % (Manual) Monocytes % (Manual) Seg Neutrophils # Seg Neutrophils # Man Lymphocytes # (Manual) Monocytes # (Manual) ABG pH POC ABG pCO2 POC ABG pO2 ABG Hemoglobin ABG Oxyhemoglobin ABG Sodium ABG Potassium ABG Chloride ABG Glucose Carboxyhemoglobin Sodium Potassium Chloride BUN Creatinine Glucose POC Glucose Calcium Phosphorus Magnesium AST ALT Total Creatine Kinase 1000 H CK-MB (CK-2) Troponin T Total Protein Albumin HDL Cholesterol TSH 14.190 H Free T3 Index Arterial Blood Glucose Arterial Blood Ionized Calcium Urine pH Urine WBC (Auto) Urine Creatinine Acetaminophen 5.0 L 04/15/21 04/15/21 04/15/21 20:49 21:23 23:15 WBC RBC Hgb Hct MCV MCH RDW Plt Count Lymph % (Auto) Seg Neutrophils % Seg Neuts % (Manual) Lymphocytes % (Manual) Monocytes % (Manual) Seg Neutrophils # Seg Neutrophils # Man Lymphocytes # (Manual) Monocytes # (Manual) ABG pH 7.557 H POC ABG pCO2 30.0 L POC ABG pO2 493.3 H ABG Hemoglobin ABG Oxyhemoglobin 99.0 H ABG Sodium 131.5 L ABG Potassium 4.7 H ABG Chloride 94.0 L ABG Glucose 218 H Carboxyhemoglobin Sodium Potassium Chloride BUN Creatinine Glucose POC Glucose 173 H 207 H Calcium Phosphorus Magnesium AST ALT Total Creatine Kinase CK-MB (CK-2) Troponin T Total Protein Albumin HDL Cholesterol TSH Free T3 Index Arterial Blood Glucose 218 H Arterial Blood Ionized Calcium 5.4 H Urine pH Urine WBC (Auto) Urine Creatinine Acetaminophen 04/16/21 04/16/21 04/16/21 00:09 00:12 00:19 WBC RBC Hgb Hct MCV MCH RDW Plt Count Lymph % (Auto) Seg Neutrophils % Seg Neuts % (Manual) Lymphocytes % (Manual) Monocytes % (Manual) Seg Neutrophils # Seg Neutrophils # Man Lymphocytes # (Manual) Monocytes # (Manual) ABG pH POC ABG pCO2 POC ABG pO2 ABG Hemoglobin ABG Oxyhemoglobin ABG Sodium ABG Potassium ABG Chloride ABG Glucose Carboxyhemoglobin Sodium Potassium 6.7 H* Chloride BUN Creatinine Glucose POC Glucose Calcium Phosphorus Magnesium AST ALT Total Creatine Kinase CK-MB (CK-2) Troponin T Total Protein Albumin HDL Cholesterol TSH Free T3 Index Arterial Blood Glucose Arterial Blood Ionized Calcium Urine pH 9.0 H Urine WBC (Auto) Urine Creatinine 24.4 H Acetaminophen 04/16/21 04/16/21 04/16/21 03:43 03:55 05:02 WBC 21.2 H RBC Hgb Hct 43.4 H MCV 98 H MCH RDW Plt Count Lymph % (Auto) Seg Neutrophils % Seg Neuts % (Manual) 84.0 H Lymphocytes % (Manual) 2.0 L Monocytes % (Manual) 10.0 H Seg Neutrophils # Seg Neutrophils # Man 17.8 H Lymphocytes # (Manual) 0.4 L Monocytes # (Manual) 2.1 H ABG pH 7.461 H POC ABG pCO2 POC ABG pO2 ABG Hemoglobin ABG Oxyhemoglobin ABG Sodium 126.8 L ABG Potassium 5.4 H ABG Chloride 90.0 L ABG Glucose 325 H Carboxyhemoglobin Sodium Potassium Chloride BUN Creatinine Glucose POC Glucose 391 H Calcium Phosphorus Magnesium AST ALT Total Creatine Kinase CK-MB (CK-2) Troponin T Total Protein Albumin HDL Cholesterol TSH Free T3 Index Arterial Blood Glucose 325 H Arterial Blood Ionized Calcium Urine pH Urine WBC (Auto) Urine Creatinine Acetaminophen 04/16/21 04/16/21 04/16/21 05:02 11:34 16:09 WBC RBC Hgb Hct MCV MCH RDW Plt Count Lymph % (Auto) Seg Neutrophils % Seg Neuts % (Manual) Lymphocytes % (Manual) Monocytes % (Manual) Seg Neutrophils # Seg Neutrophils # Man Lymphocytes # (Manual) Monocytes # (Manual) ABG pH POC ABG pCO2 POC ABG pO2 ABG Hemoglobin ABG Oxyhemoglobin ABG Sodium ABG Potassium ABG Chloride ABG Glucose Carboxyhemoglobin Sodium 131 L Potassium 5.9 H Chloride 88.7 L BUN 34 H Creatinine 2.9 H Glucose 249 H POC Glucose 382 H 300 H Calcium 10.4 H Phosphorus Magnesium AST 65 H ALT Total Creatine Kinase CK-MB (CK-2) Troponin T Total Protein Albumin 3.8 L HDL Cholesterol TSH Free T3 Index Arterial Blood Glucose Arterial Blood Ionized Calcium Urine pH Urine WBC (Auto) Urine Creatinine Acetaminophen 04/16/21 04/16/21 04/16/21 18:15 19:01 19:01 WBC RBC Hgb Hct MCV MCH RDW Plt Count Lymph % (Auto) Seg Neutrophils % Seg Neuts % (Manual) Lymphocytes % (Manual) Monocytes % (Manual) Seg Neutrophils # Seg Neutrophils # Man Lymphocytes # (Manual) Monocytes # (Manual) ABG pH POC ABG pCO2 POC ABG pO2 ABG Hemoglobin ABG Oxyhemoglobin ABG Sodium ABG Potassium ABG Chloride ABG Glucose Carboxyhemoglobin Sodium 125 L Potassium 5.5 H Chloride 84.5 L BUN 37 H Creatinine 3.5 H Glucose 236 H POC Glucose 287 H Calcium Phosphorus Magnesium AST ALT Total Creatine Kinase CK-MB (CK-2) Troponin T Total Protein Albumin HDL Cholesterol TSH Free T3 Index 1.1 L Arterial Blood Glucose Arterial Blood Ionized Calcium Urine pH Urine WBC (Auto) Urine Creatinine Acetaminophen 04/16/21 04/16/21 04/17/21 19:01 23:48 03:09 WBC RBC Hgb Hct MCV MCH RDW Plt Count Lymph % (Auto) Seg Neutrophils % Seg Neuts % (Manual) Lymphocytes % (Manual) Monocytes % (Manual) Seg Neutrophils # Seg Neutrophils # Man Lymphocytes # (Manual) Monocytes # (Manual) ABG pH 7.518 H POC ABG pCO2 POC ABG pO2 ABG Hemoglobin ABG Oxyhemoglobin ABG Sodium 126.4 L ABG Potassium ABG Chloride 89.0 L ABG Glucose 200 H Carboxyhemoglobin Sodium Potassium 5.6 H Chloride BUN Creatinine Glucose POC Glucose 243 H Calcium Phosphorus Magnesium AST ALT Total Creatine Kinase CK-MB (CK-2) Troponin T Total Protein Albumin HDL Cholesterol TSH Free T3 Index Arterial Blood Glucose 200 H Arterial Blood Ionized Calcium 4.4 L Urine pH Urine WBC (Auto) Urine Creatinine Acetaminophen 04/17/21 04/17/21 04/17/21 05:04 06:14 11:55 WBC RBC Hgb Hct MCV MCH RDW Plt Count Lymph % (Auto) Seg Neutrophils % Seg Neuts % (Manual) Lymphocytes % (Manual) Monocytes % (Manual) Seg Neutrophils # Seg Neutrophils # Man Lymphocytes # (Manual) Monocytes # (Manual) ABG pH POC ABG pCO2 POC ABG pO2 ABG Hemoglobin ABG Oxyhemoglobin ABG Sodium ABG Potassium ABG Chloride ABG Glucose Carboxyhemoglobin Sodium 129 L Potassium Chloride 86.1 L BUN 39 H Creatinine 3.5 H Glucose 202 H POC Glucose 208 H 276 H Calcium Phosphorus Magnesium AST ALT Total Creatine Kinase 750 H CK-MB (CK-2) Troponin T 0.119 H* D Total Protein Albumin HDL Cholesterol 61 H TSH Free T3 Index Arterial Blood Glucose Arterial Blood Ionized Calcium Urine pH Urine WBC (Auto) Urine Creatinine Acetaminophen 04/17/21 04/17/21 04/17/21 15:35 15:35 17:07 WBC 17.1 H RBC Hgb Hct MCV MCH RDW Plt Count Lymph % (Auto) Seg Neutrophils % Seg Neuts % (Manual) Lymphocytes % (Manual) Monocytes % (Manual) Seg Neutrophils # Seg Neutrophils # Man Lymphocytes # (Manual) Monocytes # (Manual) ABG pH POC ABG pCO2 POC ABG pO2 ABG Hemoglobin ABG Oxyhemoglobin ABG Sodium ABG Potassium ABG Chloride ABG Glucose Carboxyhemoglobin Sodium Potassium Chloride BUN Creatinine Glucose POC Glucose 148 H Calcium Phosphorus Magnesium AST ALT Total Creatine Kinase 615 H CK-MB (CK-2) 9.1 H Troponin T Total Protein Albumin HDL Cholesterol TSH Free T3 Index Arterial Blood Glucose Arterial Blood Ionized Calcium Urine pH Urine WBC (Auto) Urine Creatinine Acetaminophen 04/18/21 04/18/21 04/18/21 00:01 03:00 05:24 WBC RBC Hgb Hct MCV MCH RDW Plt Count Lymph % (Auto) Seg Neutrophils % Seg Neuts % (Manual) Lymphocytes % (Manual) Monocytes % (Manual) Seg Neutrophils # Seg Neutrophils # Man Lymphocytes # (Manual) Monocytes # (Manual) ABG pH 7.497 H POC ABG pCO2 POC ABG pO2 77.7 L ABG Hemoglobin 10.4 L ABG Oxyhemoglobin ABG Sodium 129.7 L ABG Potassium 2.8 L ABG Chloride 92.0 L ABG Glucose 134 H Carboxyhemoglobin 0.3 L Sodium Potassium Chloride BUN Creatinine Glucose POC Glucose 192 H 162 H Calcium Phosphorus Magnesium AST ALT Total Creatine Kinase CK-MB (CK-2) Troponin T Total Protein Albumin HDL Cholesterol TSH Free T3 Index Arterial Blood Glucose 134 H Arterial Blood Ionized Calcium 4.3 L Urine pH Urine WBC (Auto) Urine Creatinine Acetaminophen 04/18/21 04/18/21 04/18/21 05:34 05:34 05:43 WBC 15.3 H RBC 3.34 L Hgb Hct MCV MCH RDW 15.3 H Plt Count Lymph % (Auto) Seg Neutrophils % Seg Neuts % (Manual) Lymphocytes % (Manual) Monocytes % (Manual) Seg Neutrophils # Seg Neutrophils # Man Lymphocytes # (Manual) Monocytes # (Manual) ABG pH POC ABG pCO2 POC ABG pO2 ABG Hemoglobin ABG Oxyhemoglobin ABG Sodium ABG Potassium ABG Chloride ABG Glucose Carboxyhemoglobin Sodium 134 L Potassium 3.0 L D Chloride 93.5 L BUN 42 H Creatinine 3.1 H Glucose 152 H POC Glucose Calcium Phosphorus Magnesium 1.40 L AST ALT Total Creatine Kinase 427 H CK-MB (CK-2) Troponin T 0.081 H D Total Protein Albumin HDL Cholesterol TSH Free T3 Index Arterial Blood Glucose Arterial Blood Ionized Calcium Urine pH Urine WBC (Auto) Urine Creatinine Acetaminophen 04/18/21 04/18/21 04/18/21 09:11 11:34 17:24 WBC RBC Hgb Hct MCV MCH RDW Plt Count Lymph % (Auto) Seg Neutrophils % Seg Neuts % (Manual) Lymphocytes % (Manual) Monocytes % (Manual) Seg Neutrophils # Seg Neutrophils # Man Lymphocytes # (Manual) Monocytes # (Manual) ABG pH POC ABG pCO2 POC ABG pO2 ABG Hemoglobin ABG Oxyhemoglobin ABG Sodium ABG Potassium ABG Chloride ABG Glucose Carboxyhemoglobin Sodium Potassium Chloride BUN Creatinine Glucose POC Glucose 170 H 151 H Calcium Phosphorus Magnesium AST ALT Total Creatine Kinase CK-MB (CK-2) Troponin T Total Protein Albumin HDL Cholesterol TSH Free T3 Index Arterial Blood Glucose Arterial Blood Ionized Calcium Urine pH Urine WBC (Auto) 34.0 H Urine Creatinine Acetaminophen 04/18/21 04/19/21 04/19/21 23:18 04:09 05:19 WBC RBC Hgb Hct MCV MCH RDW Plt Count Lymph % (Auto) Seg Neutrophils % Seg Neuts % (Manual) Lymphocytes % (Manual) Monocytes % (Manual) Seg Neutrophils # Seg Neutrophils # Man Lymphocytes # (Manual) Monocytes # (Manual) ABG pH 7.476 H POC ABG pCO2 POC ABG pO2 79.4 L ABG Hemoglobin 10.7 L ABG Oxyhemoglobin ABG Sodium 131.2 L ABG Potassium 2.8 L ABG Chloride 94.0 L ABG Glucose 209 H Carboxyhemoglobin 0.3 L Sodium Potassium Chloride BUN Creatinine Glucose POC Glucose 182 H 204 H Calcium Phosphorus Magnesium AST ALT Total Creatine Kinase CK-MB (CK-2) Troponin T Total Protein Albumin HDL Cholesterol TSH Free T3 Index Arterial Blood Glucose 209 H Arterial Blood Ionized Calcium Urine pH Urine WBC (Auto) Urine Creatinine Acetaminophen 04/19/21 04/19/21 04/19/21 07:30 07:30 10:35 WBC 14.8 H RBC 3.20 L Hgb Hct MCV 98 H MCH RDW Plt Count 137 L Lymph % (Auto) Seg Neutrophils % Seg Neuts % (Manual) Lymphocytes % (Manual) Monocytes % (Manual) Seg Neutrophils # Seg Neutrophils # Man Lymphocytes # (Manual) Monocytes # (Manual) ABG pH 7.464 H POC ABG pCO2 POC ABG pO2 81.8 L ABG Hemoglobin 10.8 L ABG Oxyhemoglobin ABG Sodium 129.6 L ABG Potassium ABG Chloride 95.0 L ABG Glucose 238 H Carboxyhemoglobin Sodium 133 L Potassium 2.8 L* Chloride 94.4 L BUN 43 H Creatinine 2.7 H Glucose 255 H POC Glucose Calcium 8.0 L Phosphorus Magnesium AST ALT Total Creatine Kinase CK-MB (CK-2) Troponin T 0.060 H D Total Protein Albumin HDL Cholesterol TSH Free T3 Index Arterial Blood Glucose 238 H Arterial Blood Ionized Calcium Urine pH Urine WBC (Auto) Urine Creatinine Acetaminophen 04/19/21 04/19/21 04/19/21 11:48 20:40 23:04 WBC RBC Hgb Hct MCV MCH RDW Plt Count Lymph % (Auto) Seg Neutrophils % Seg Neuts % (Manual) Lymphocytes % (Manual) Monocytes % (Manual) Seg Neutrophils # Seg Neutrophils # Man Lymphocytes # (Manual) Monocytes # (Manual) ABG pH POC ABG pCO2 POC ABG pO2 ABG Hemoglobin ABG Oxyhemoglobin ABG Sodium ABG Potassium ABG Chloride ABG Glucose Carboxyhemoglobin Sodium Potassium 3.4 L D Chloride BUN Creatinine Glucose POC Glucose 208 H 173 H Calcium Phosphorus Magnesium AST ALT Total Creatine Kinase CK-MB (CK-2) Troponin T Total Protein Albumin HDL Cholesterol TSH Free T3 Index Arterial Blood Glucose Arterial Blood Ionized Calcium Urine pH Urine WBC (Auto) Urine Creatinine Acetaminophen 04/20/21 04/20/21 04/20/21 02:56 03:32 03:32 WBC 13.2 H RBC 3.18 L Hgb Hct MCV MCH RDW Plt Count Lymph % (Auto) Seg Neutrophils % Seg Neuts % (Manual) Lymphocytes % (Manual) Monocytes % (Manual) Seg Neutrophils # Seg Neutrophils # Man Lymphocytes # (Manual) Monocytes # (Manual) ABG pH 7.526 H POC ABG pCO2 POC ABG pO2 ABG Hemoglobin 10.5 L ABG Oxyhemoglobin ABG Sodium 133.5 L ABG Potassium ABG Chloride ABG Glucose 157 H Carboxyhemoglobin 0.3 L Sodium 135 L Potassium Chloride 96.7 L BUN 40 H Creatinine 2.3 H Glucose 142 H POC Glucose Calcium Phosphorus Magnesium AST ALT Total Creatine Kinase CK-MB (CK-2) Troponin T 0.065 H Total Protein Albumin HDL Cholesterol TSH Free T3 Index Arterial Blood Glucose 157 H Arterial Blood Ionized Calcium Urine pH Urine WBC (Auto) Urine Creatinine Acetaminophen 04/20/21 04/20/21 04/20/21 03:46 05:42 11:50 WBC RBC Hgb Hct MCV MCH RDW Plt Count Lymph % (Auto) Seg Neutrophils % Seg Neuts % (Manual) Lymphocytes % (Manual) Monocytes % (Manual) Seg Neutrophils # Seg Neutrophils # Man Lymphocytes # (Manual) Monocytes # (Manual) ABG pH POC ABG pCO2 POC ABG pO2 ABG Hemoglobin ABG Oxyhemoglobin ABG Sodium ABG Potassium ABG Chloride ABG Glucose Carboxyhemoglobin Sodium Potassium Chloride BUN Creatinine Glucose POC Glucose 160 H 194 H Calcium Phosphorus 2.10 L Magnesium AST ALT Total Creatine Kinase CK-MB (CK-2) Troponin T Total Protein Albumin HDL Cholesterol TSH Free T3 Index Arterial Blood Glucose Arterial Blood Ionized Calcium Urine pH Urine WBC (Auto) Urine Creatinine Acetaminophen 04/20/21 04/20/21 04/21/21 17:09 23:18 05:26 WBC RBC Hgb Hct MCV MCH RDW Plt Count Lymph % (Auto) Seg Neutrophils % Seg Neuts % (Manual) Lymphocytes % (Manual) Monocytes % (Manual) Seg Neutrophils # Seg Neutrophils # Man Lymphocytes # (Manual) Monocytes # (Manual) ABG pH POC ABG pCO2 POC ABG pO2 ABG Hemoglobin ABG Oxyhemoglobin ABG Sodium ABG Potassium ABG Chloride ABG Glucose Carboxyhemoglobin Sodium Potassium Chloride BUN Creatinine Glucose POC Glucose 153 H 162 H 164 H Calcium Phosphorus Magnesium AST ALT Total Creatine Kinase CK-MB (CK-2) Troponin T Total Protein Albumin HDL Cholesterol TSH Free T3 Index Arterial Blood Glucose Arterial Blood Ionized Calcium Urine pH Urine WBC (Auto) Urine Creatinine Acetaminophen 04/21/21 04/21/21 04/21/21 05:51 05:51 12:12 WBC RBC 3.20 L Hgb Hct MCV 99 H MCH RDW 15.3 H Plt Count Lymph % (Auto) Seg Neutrophils % Seg Neuts % (Manual) Lymphocytes % (Manual) Monocytes % (Manual) Seg Neutrophils # Seg Neutrophils # Man Lymphocytes # (Manual) Monocytes # (Manual) ABG pH POC ABG pCO2 POC ABG pO2 ABG Hemoglobin ABG Oxyhemoglobin ABG Sodium ABG Potassium ABG Chloride ABG Glucose Carboxyhemoglobin Sodium Potassium Chloride 96.6 L BUN 42 H Creatinine 2.1 H Glucose 171 H POC Glucose 167 H Calcium Phosphorus Magnesium AST ALT Total Creatine Kinase CK-MB (CK-2) Troponin T Total Protein Albumin HDL Cholesterol TSH Free T3 Index Arterial Blood Glucose Arterial Blood Ionized Calcium Urine pH Urine WBC (Auto) Urine Creatinine Acetaminophen 04/21/21 04/21/21 04/22/21 17:13 23:42 05:29 WBC RBC Hgb Hct MCV MCH RDW Plt Count Lymph % (Auto) Seg Neutrophils % Seg Neuts % (Manual) Lymphocytes % (Manual) Monocytes % (Manual) Seg Neutrophils # Seg Neutrophils # Man Lymphocytes # (Manual) Monocytes # (Manual) ABG pH POC ABG pCO2 POC ABG pO2 ABG Hemoglobin ABG Oxyhemoglobin ABG Sodium ABG Potassium ABG Chloride ABG Glucose Carboxyhemoglobin Sodium Potassium Chloride BUN Creatinine Glucose POC Glucose 178 H 253 H 208 H Calcium Phosphorus Magnesium AST ALT Total Creatine Kinase CK-MB (CK-2) Troponin T Total Protein Albumin HDL Cholesterol TSH Free T3 Index Arterial Blood Glucose Arterial Blood Ionized Calcium Urine pH Urine WBC (Auto) Urine Creatinine Acetaminophen 04/22/21 04/22/21 04/22/21 08:00 08:00 12:06 WBC 12.9 H RBC Hgb Hct MCV MCH RDW Plt Count Lymph % (Auto) Seg Neutrophils % Seg Neuts % (Manual) Lymphocytes % (Manual) Monocytes % (Manual) Seg Neutrophils # Seg Neutrophils # Man Lymphocytes # (Manual) Monocytes # (Manual) ABG pH POC ABG pCO2 POC ABG pO2 ABG Hemoglobin ABG Oxyhemoglobin ABG Sodium ABG Potassium ABG Chloride ABG Glucose Carboxyhemoglobin Sodium Potassium Chloride BUN 47 H Creatinine 1.9 H Glucose 252 H POC Glucose 298 H Calcium Phosphorus Magnesium AST ALT Total Creatine Kinase CK-MB (CK-2) Troponin T Total Protein Albumin HDL Cholesterol TSH Free T3 Index Arterial Blood Glucose Arterial Blood Ionized Calcium Urine pH Urine WBC (Auto) Urine Creatinine Acetaminophen 04/22/21 04/22/21 04/23/21 17:34 23:01 05:08 WBC RBC Hgb Hct MCV MCH RDW Plt Count Lymph % (Auto) Seg Neutrophils % Seg Neuts % (Manual) Lymphocytes % (Manual) Monocytes % (Manual) Seg Neutrophils # Seg Neutrophils # Man Lymphocytes # (Manual) Monocytes # (Manual) ABG pH POC ABG pCO2 POC ABG pO2 ABG Hemoglobin ABG Oxyhemoglobin ABG Sodium ABG Potassium ABG Chloride ABG Glucose Carboxyhemoglobin Sodium Potassium Chloride BUN Creatinine Glucose POC Glucose 259 H 280 H 223 H Calcium Phosphorus Magnesium AST ALT Total Creatine Kinase CK-MB (CK-2) Troponin T Total Protein Albumin HDL Cholesterol TSH Free T3 Index Arterial Blood Glucose Arterial Blood Ionized Calcium Urine pH Urine WBC (Auto) Urine Creatinine Acetaminophen 04/23/21 04/23/21 04/23/21 07:02 11:57 17:33 WBC RBC Hgb Hct MCV MCH RDW Plt Count Lymph % (Auto) Seg Neutrophils % Seg Neuts % (Manual) Lymphocytes % (Manual) Monocytes % (Manual) Seg Neutrophils # Seg Neutrophils # Man Lymphocytes # (Manual) Monocytes # (Manual) ABG pH POC ABG pCO2 POC ABG pO2 ABG Hemoglobin ABG Oxyhemoglobin ABG Sodium ABG Potassium ABG Chloride ABG Glucose Carboxyhemoglobin Sodium Potassium Chloride 97.7 L BUN 57 H Creatinine 2.0 H Glucose 253 H POC Glucose 310 H 235 H Calcium Phosphorus Magnesium AST ALT Total Creatine Kinase CK-MB (CK-2) Troponin T Total Protein Albumin HDL Cholesterol TSH Free T3 Index Arterial Blood Glucose Arterial Blood Ionized Calcium Urine pH Urine WBC (Auto) Urine Creatinine Acetaminophen 05/24/21 05/25/21 05/25/21 23:15 05:23 05:46 WBC RBC Hgb Hct MCV MCH RDW Plt Count Lymph % (Auto) Seg Neutrophils % Seg Neuts % (Manual) Lymphocytes % (Manual) Monocytes % (Manual) Seg Neutrophils # Seg Neutrophils # Man Lymphocytes # (Manual) Monocytes # (Manual) ABG pH POC ABG pCO2 POC ABG pO2 ABG Hemoglobin ABG Oxyhemoglobin ABG Sodium ABG Potassium ABG Chloride ABG Glucose Carboxyhemoglobin Sodium Potassium 5.2 H D Chloride BUN 68 H Creatinine 2.3 H Glucose 277 H POC Glucose 197 H 274 H Calcium Phosphorus Magnesium AST ALT Total Creatine Kinase CK-MB (CK-2) Troponin T Total Protein Albumin HDL Cholesterol TSH Free T3 Index Arterial Blood Glucose Arterial Blood Ionized Calcium Urine pH Urine WBC (Auto) Urine Creatinine Acetaminophen 04/24/21 04/24/21 04/24/21 11:33 11:52 17:49 WBC RBC Hgb Hct MCV MCH RDW Plt Count Lymph % (Auto) Seg Neutrophils % Seg Neuts % (Manual) Lymphocytes % (Manual) Monocytes % (Manual) Seg Neutrophils # Seg Neutrophils # Man Lymphocytes # (Manual) Monocytes # (Manual) ABG pH POC ABG pCO2 POC ABG pO2 72.7 L ABG Hemoglobin 11.6 L ABG Oxyhemoglobin 92.9 L ABG Sodium ABG Potassium ABG Chloride ABG Glucose 269 H Carboxyhemoglobin Sodium Potassium Chloride BUN Creatinine Glucose POC Glucose 223 H 252 H Calcium Phosphorus Magnesium AST ALT Total Creatine Kinase CK-MB (CK-2) Troponin T Total Protein Albumin HDL Cholesterol TSH Free T3 Index Arterial Blood Glucose 269 H Arterial Blood Ionized Calcium Urine pH Urine WBC (Auto) Urine Creatinine Acetaminophen 04/24/21 04/24/21 04/25/21 21:00 23:48 03:06 WBC RBC Hgb Hct MCV MCH RDW Plt Count Lymph % (Auto) Seg Neutrophils % Seg Neuts % (Manual) Lymphocytes % (Manual) Monocytes % (Manual) Seg Neutrophils # Seg Neutrophils # Man Lymphocytes # (Manual) Monocytes # (Manual) ABG pH 7.521 H 7.451 H POC ABG pCO2 POC ABG pO2 80.7 L 77.1 L ABG Hemoglobin 10.4 L 11.2 L ABG Oxyhemoglobin ABG Sodium ABG Potassium ABG Chloride ABG Glucose 186 H 165 H Carboxyhemoglobin 0 L Sodium Potassium Chloride BUN Creatinine Glucose POC Glucose 141 H Calcium Phosphorus Magnesium AST ALT Total Creatine Kinase CK-MB (CK-2) Troponin T Total Protein Albumin HDL Cholesterol TSH Free T3 Index Arterial Blood Glucose 186 H 165 H Arterial Blood Ionized Calcium Urine pH Urine WBC (Auto) Urine Creatinine Acetaminophen 04/25/21 04/25/21 04/25/21 03:56 03:56 06:03 WBC 12.3 H RBC 3.40 L Hgb Hct MCV MCH RDW Plt Count Lymph % (Auto) Seg Neutrophils % Seg Neuts % (Manual) Lymphocytes % (Manual) Monocytes % (Manual) Seg Neutrophils # Seg Neutrophils # Man Lymphocytes # (Manual) Monocytes # (Manual) ABG pH POC ABG pCO2 POC ABG pO2 ABG Hemoglobin ABG Oxyhemoglobin ABG Sodium ABG Potassium ABG Chloride ABG Glucose Carboxyhemoglobin Sodium Potassium Chloride BUN 78 H Creatinine 2.5 H Glucose 152 H POC Glucose 171 H Calcium Phosphorus Magnesium AST ALT Total Creatine Kinase CK-MB (CK-2) Troponin T Total Protein Albumin HDL Cholesterol TSH Free T3 Index Arterial Blood Glucose Arterial Blood Ionized Calcium Urine pH Urine WBC (Auto) Urine Creatinine Acetaminophen 04/25/21 04/25/21 04/26/21 11:43 15:37 00:05 WBC RBC Hgb Hct MCV MCH RDW Plt Count Lymph % (Auto) Seg Neutrophils % Seg Neuts % (Manual) Lymphocytes % (Manual) Monocytes % (Manual) Seg Neutrophils # Seg Neutrophils # Man Lymphocytes # (Manual) Monocytes # (Manual) ABG pH POC ABG pCO2 POC ABG pO2 ABG Hemoglobin ABG Oxyhemoglobin ABG Sodium ABG Potassium ABG Chloride ABG Glucose Carboxyhemoglobin Sodium Potassium Chloride BUN Creatinine Glucose POC Glucose 181 H 167 H 144 H Calcium Phosphorus Magnesium AST ALT Total Creatine Kinase CK-MB (CK-2) Troponin T Total Protein Albumin HDL Cholesterol TSH Free T3 Index Arterial Blood Glucose Arterial Blood Ionized Calcium Urine pH Urine WBC (Auto) Urine Creatinine Acetaminophen 04/26/21 04/26/21 04/26/21 04:30 05:44 09:30 WBC RBC Hgb Hct MCV MCH RDW Plt Count Lymph % (Auto) Seg Neutrophils % Seg Neuts % (Manual) Lymphocytes % (Manual) Monocytes % (Manual) Seg Neutrophils # Seg Neutrophils # Man Lymphocytes # (Manual) Monocytes # (Manual) ABG pH 7.529 H POC ABG pCO2 POC ABG pO2 66.1 L ABG Hemoglobin 11.2 L ABG Oxyhemoglobin 92.8 L ABG Sodium ABG Potassium ABG Chloride ABG Glucose 216 H Carboxyhemoglobin 0.3 L Sodium Potassium Chloride BUN 82 H Creatinine 2.7 H Glucose 238 H POC Glucose 202 H Calcium Phosphorus Magnesium AST ALT Total Creatine Kinase CK-MB (CK-2) Troponin T Total Protein Albumin HDL Cholesterol TSH Free T3 Index Arterial Blood Glucose 216 H Arterial Blood Ionized Calcium Urine pH Urine WBC (Auto) Urine Creatinine Acetaminophen 04/26/21 04/26/21 04/26/21 09:30 11:32 17:21 WBC 24.7 H RBC 3.32 L Hgb Hct MCV MCH RDW Plt Count Lymph % (Auto) Seg Neutrophils % Seg Neuts % (Manual) Lymphocytes % (Manual) Monocytes % (Manual) Seg Neutrophils # Seg Neutrophils # Man Lymphocytes # (Manual) Monocytes # (Manual) ABG pH POC ABG pCO2 POC ABG pO2 ABG Hemoglobin ABG Oxyhemoglobin ABG Sodium ABG Potassium ABG Chloride ABG Glucose Carboxyhemoglobin Sodium Potassium Chloride BUN Creatinine Glucose POC Glucose 245 H 264 H Calcium Phosphorus Magnesium AST ALT Total Creatine Kinase CK-MB (CK-2) Troponin T Total Protein Albumin HDL Cholesterol TSH Free T3 Index Arterial Blood Glucose Arterial Blood Ionized Calcium Urine pH Urine WBC (Auto) Urine Creatinine Acetaminophen 04/26/21 04/27/21 04/27/21 23:18 04:23 04:54 WBC RBC Hgb Hct MCV MCH RDW Plt Count Lymph % (Auto) Seg Neutrophils % Seg Neuts % (Manual) Lymphocytes % (Manual) Monocytes % (Manual) Seg Neutrophils # Seg Neutrophils # Man Lymphocytes # (Manual) Monocytes # (Manual) ABG pH 7.549 H POC ABG pCO2 30.0 L POC ABG pO2 64.9 L ABG Hemoglobin 11 L ABG Oxyhemoglobin 93.3 L ABG Sodium ABG Potassium ABG Chloride ABG Glucose 325 H Carboxyhemoglobin 0.3 L Sodium Potassium Chloride BUN Creatinine Glucose POC Glucose 201 H 298 H Calcium Phosphorus Magnesium AST ALT Total Creatine Kinase CK-MB (CK-2) Troponin T Total Protein Albumin HDL Cholesterol TSH Free T3 Index Arterial Blood Glucose 325 H Arterial Blood Ionized Calcium Urine pH Urine WBC (Auto) Urine Creatinine Acetaminophen 04/27/21 04/27/21 04/27/21 07:52 07:52 11:22 WBC 23.0 H RBC 3.32 L Hgb Hct MCV MCH RDW 15.5 H Plt Count Lymph % (Auto) Seg Neutrophils % Seg Neuts % (Manual) Lymphocytes % (Manual) Monocytes % (Manual) Seg Neutrophils # Seg Neutrophils # Man Lymphocytes # (Manual) Monocytes # (Manual) ABG pH POC ABG pCO2 POC ABG pO2 ABG Hemoglobin ABG Oxyhemoglobin ABG Sodium ABG Potassium ABG Chloride ABG Glucose Carboxyhemoglobin Sodium Potassium 3.5 L Chloride BUN 90 H Creatinine 2.8 H Glucose 286 H POC Glucose 251 H Calcium Phosphorus Magnesium AST ALT Total Creatine Kinase CK-MB (CK-2) Troponin T Total Protein Albumin HDL Cholesterol TSH Free T3 Index Arterial Blood Glucose Arterial Blood Ionized Calcium Urine pH Urine WBC (Auto) Urine Creatinine Acetaminophen 04/27/21 04/27/21 04/27/21 17:21 17:45 23:05 WBC RBC Hgb Hct MCV MCH RDW Plt Count Lymph % (Auto) Seg Neutrophils % Seg Neuts % (Manual) Lymphocytes % (Manual) Monocytes % (Manual) Seg Neutrophils # Seg Neutrophils # Man Lymphocytes # (Manual) Monocytes # (Manual) ABG pH POC ABG pCO2 POC ABG pO2 ABG Hemoglobin ABG Oxyhemoglobin ABG Sodium ABG Potassium ABG Chloride ABG Glucose Carboxyhemoglobin Sodium Potassium Chloride BUN Creatinine Glucose POC Glucose 180 H 178 H 189 H Calcium Phosphorus Magnesium AST ALT Total Creatine Kinase CK-MB (CK-2) Troponin T Total Protein Albumin HDL Cholesterol TSH Free T3 Index Arterial Blood Glucose Arterial Blood Ionized Calcium Urine pH Urine WBC (Auto) Urine Creatinine Acetaminophen 04/28/21 04/28/21 04/28/21 03:14 04:13 04:13 WBC 17.6 H RBC 3.03 L Hgb 9.7 L Hct 29.5 L MCV MCH RDW Plt Count Lymph % (Auto) Seg Neutrophils % Seg Neuts % (Manual) Lymphocytes % (Manual) Monocytes % (Manual) Seg Neutrophils # Seg Neutrophils # Man Lymphocytes # (Manual) Monocytes # (Manual) ABG pH 7.507 H POC ABG pCO2 POC ABG pO2 62.0 L ABG Hemoglobin 10.2 L ABG Oxyhemoglobin 91.9 L ABG Sodium ABG Potassium ABG Chloride ABG Glucose 337 H Carboxyhemoglobin 0.2 L Sodium Potassium Chloride BUN 101 H Creatinine 3.1 H Glucose 304 H POC Glucose Calcium Phosphorus Magnesium AST 61 H ALT 64 H Total Creatine Kinase CK-MB (CK-2) Troponin T Total Protein 6.2 L Albumin 2.6 L HDL Cholesterol TSH Free T3 Index Arterial Blood Glucose 337 H Arterial Blood Ionized Calcium Urine pH Urine WBC (Auto) Urine Creatinine Acetaminophen 04/28/21 04/28/21 04/28/21 05:01 11:28 18:23 WBC RBC Hgb Hct MCV MCH RDW Plt Count Lymph % (Auto) Seg Neutrophils % Seg Neuts % (Manual) Lymphocytes % (Manual) Monocytes % (Manual) Seg Neutrophils # Seg Neutrophils # Man Lymphocytes # (Manual) Monocytes # (Manual) ABG pH POC ABG pCO2 POC ABG pO2 ABG Hemoglobin ABG Oxyhemoglobin ABG Sodium ABG Potassium ABG Chloride ABG Glucose Carboxyhemoglobin Sodium Potassium Chloride BUN Creatinine Glucose POC Glucose 282 H 263 H 200 H Calcium Phosphorus Magnesium AST ALT Total Creatine Kinase CK-MB (CK-2) Troponin T Total Protein Albumin HDL Cholesterol TSH Free T3 Index Arterial Blood Glucose Arterial Blood Ionized Calcium Urine pH Urine WBC (Auto) Urine Creatinine Acetaminophen 04/28/21 04/29/21 04/29/21 23:49 03:24 04:22 WBC RBC Hgb Hct MCV MCH RDW Plt Count Lymph % (Auto) Seg Neutrophils % Seg Neuts % (Manual) Lymphocytes % (Manual) Monocytes % (Manual) Seg Neutrophils # Seg Neutrophils # Man Lymphocytes # (Manual) Monocytes # (Manual) ABG pH 7.546 H POC ABG pCO2 POC ABG pO2 52.4 L ABG Hemoglobin 10.5 L ABG Oxyhemoglobin 88.3 L ABG Sodium ABG Potassium ABG Chloride ABG Glucose 217 H Carboxyhemoglobin 0.4 L Sodium 148 H Potassium Chloride BUN 110 H Creatinine 3.1 H Glucose 208 H POC Glucose 238 H Calcium Phosphorus Magnesium AST ALT Total Creatine Kinase CK-MB (CK-2) Troponin T Total Protein Albumin HDL Cholesterol TSH Free T3 Index Arterial Blood Glucose 217 H Arterial Blood Ionized Calcium Urine pH Urine WBC (Auto) Urine Creatinine Acetaminophen 04/29/21 04/29/21 04/29/21 04:22 05:08 11:26 WBC 15.2 H RBC 3.30 L Hgb 9.8 L Hct MCV MCH RDW Plt Count Lymph % (Auto) Seg Neutrophils % Seg Neuts % (Manual) Lymphocytes % (Manual) Monocytes % (Manual) Seg Neutrophils # Seg Neutrophils # Man Lymphocytes # (Manual) Monocytes # (Manual) ABG pH POC ABG pCO2 POC ABG pO2 ABG Hemoglobin ABG Oxyhemoglobin ABG Sodium ABG Potassium ABG Chloride ABG Glucose Carboxyhemoglobin Sodium Potassium Chloride BUN Creatinine Glucose POC Glucose 181 H 218 H Calcium Phosphorus Magnesium AST ALT Total Creatine Kinase CK-MB (CK-2) Troponin T Total Protein Albumin HDL Cholesterol TSH Free T3 Index Arterial Blood Glucose Arterial Blood Ionized Calcium Urine pH Urine WBC (Auto) Urine Creatinine Acetaminophen 04/29/21 04/29/21 04/30/21 17:06 23:06 03:58 WBC RBC Hgb Hct MCV MCH RDW Plt Count Lymph % (Auto) Seg Neutrophils % Seg Neuts % (Manual) Lymphocytes % (Manual) Monocytes % (Manual) Seg Neutrophils # Seg Neutrophils # Man Lymphocytes # (Manual) Monocytes # (Manual) ABG pH 7.547 H POC ABG pCO2 31.3 L POC ABG pO2 58.4 L ABG Hemoglobin 9.6 L ABG Oxyhemoglobin 91.1 L ABG Sodium ABG Potassium ABG Chloride 108.0 H ABG Glucose 248 H Carboxyhemoglobin 0.2 L Sodium Potassium Chloride BUN Creatinine Glucose POC Glucose 223 H 252 H Calcium Phosphorus Magnesium AST ALT Total Creatine Kinase CK-MB (CK-2) Troponin T Total Protein Albumin HDL Cholesterol TSH Free T3 Index Arterial Blood Glucose 248 H Arterial Blood Ionized Calcium Urine pH Urine WBC (Auto) Urine Creatinine Acetaminophen 04/30/21 04/30/21 04/30/21 05:23 05:54 11:47 WBC RBC Hgb Hct MCV MCH RDW Plt Count Lymph % (Auto) Seg Neutrophils % Seg Neuts % (Manual) Lymphocytes % (Manual) Monocytes % (Manual) Seg Neutrophils # Seg Neutrophils # Man Lymphocytes # (Manual) Monocytes # (Manual) ABG pH POC ABG pCO2 POC ABG pO2 ABG Hemoglobin ABG Oxyhemoglobin ABG Sodium ABG Potassium ABG Chloride ABG Glucose Carboxyhemoglobin Sodium Potassium Chloride BUN 118 H Creatinine 3.3 H Glucose 263 H POC Glucose 244 H 237 H Calcium Phosphorus Magnesium AST ALT Total Creatine Kinase CK-MB (CK-2) Troponin T Total Protein Albumin HDL Cholesterol TSH Free T3 Index Arterial Blood Glucose Arterial Blood Ionized Calcium Urine pH Urine WBC (Auto) Urine Creatinine Acetaminophen 04/30/21 04/30/21 04/30/21 17:26 17:45 23:51 WBC RBC Hgb Hct MCV MCH RDW Plt Count Lymph % (Auto) Seg Neutrophils % Seg Neuts % (Manual) Lymphocytes % (Manual) Monocytes % (Manual) Seg Neutrophils # Seg Neutrophils # Man Lymphocytes # (Manual) Monocytes # (Manual) ABG pH POC ABG pCO2 POC ABG pO2 ABG Hemoglobin ABG Oxyhemoglobin ABG Sodium ABG Potassium ABG Chloride ABG Glucose Carboxyhemoglobin Sodium Potassium Chloride BUN Creatinine Glucose POC Glucose 193 H 197 H Calcium Phosphorus Magnesium AST ALT Total Creatine Kinase CK-MB (CK-2) Troponin T Total Protein Albumin HDL Cholesterol TSH Free T3 Index Arterial Blood Glucose Arterial Blood Ionized Calcium Urine pH Urine WBC (Auto) 48.0 H Urine Creatinine Acetaminophen 05/01/21 05/01/21 05/01/21 04:02 04:57 07:11 WBC 12.3 H RBC 2.83 L Hgb 8.8 L Hct 27.3 L MCV MCH RDW Plt Count Lymph % (Auto) Seg Neutrophils % Seg Neuts % (Manual) 80.0 H Lymphocytes % (Manual) 5.0 L Monocytes % (Manual) Seg Neutrophils # Seg Neutrophils # Man 9.8 H Lymphocytes # (Manual) 0.6 L Monocytes # (Manual) ABG pH 7.466 H POC ABG pCO2 POC ABG pO2 61.4 L ABG Hemoglobin 9.0 L ABG Oxyhemoglobin 91.1 L ABG Sodium ABG Potassium ABG Chloride 110.0 H ABG Glucose 245 H Carboxyhemoglobin Sodium Potassium Chloride BUN Creatinine Glucose POC Glucose 193 H Calcium Phosphorus Magnesium AST ALT Total Creatine Kinase CK-MB (CK-2) Troponin T Total Protein Albumin HDL Cholesterol TSH Free T3 Index Arterial Blood Glucose 245 H Arterial Blood Ionized Calcium Urine pH Urine WBC (Auto) Urine Creatinine Acetaminophen 05/01/21 05/01/21 05/01/21 07:11 07:45 11:30 WBC RBC Hgb Hct MCV MCH RDW Plt Count Lymph % (Auto) Seg Neutrophils % Seg Neuts % (Manual) Lymphocytes % (Manual) Monocytes % (Manual) Seg Neutrophils # Seg Neutrophils # Man Lymphocytes # (Manual) Monocytes # (Manual) ABG pH POC ABG pCO2 POC ABG pO2 ABG Hemoglobin ABG Oxyhemoglobin ABG Sodium ABG Potassium ABG Chloride ABG Glucose Carboxyhemoglobin Sodium 146 H Potassium Chloride 108.4 H BUN 122 H Creatinine 3.4 H Glucose 235 H POC Glucose 212 H 247 H Calcium Phosphorus Magnesium AST ALT Total Creatine Kinase CK-MB (CK-2) Troponin T Total Protein Albumin HDL Cholesterol TSH Free T3 Index Arterial Blood Glucose Arterial Blood Ionized Calcium Urine pH Urine WBC (Auto) Urine Creatinine Acetaminophen 05/01/21 05/01/21 05/01/21 11:31 17:42 23:49 WBC RBC Hgb Hct MCV MCH RDW Plt Count Lymph % (Auto) Seg Neutrophils % Seg Neuts % (Manual) Lymphocytes % (Manual) Monocytes % (Manual) Seg Neutrophils # Seg Neutrophils # Man Lymphocytes # (Manual) Monocytes # (Manual) ABG pH POC ABG pCO2 POC ABG pO2 ABG Hemoglobin ABG Oxyhemoglobin ABG Sodium ABG Potassium ABG Chloride ABG Glucose Carboxyhemoglobin Sodium Potassium Chloride BUN Creatinine Glucose POC Glucose 258 H 171 H 167 H Calcium Phosphorus Magnesium AST ALT Total Creatine Kinase CK-MB (CK-2) Troponin T Total Protein Albumin HDL Cholesterol TSH Free T3 Index Arterial Blood Glucose Arterial Blood Ionized Calcium Urine pH Urine WBC (Auto) Urine Creatinine Acetaminophen 05/02/21 05/02/21 05/02/21 05:12 08:34 11:53 WBC RBC Hgb Hct MCV MCH RDW Plt Count Lymph % (Auto) Seg Neutrophils % Seg Neuts % (Manual) Lymphocytes % (Manual) Monocytes % (Manual) Seg Neutrophils # Seg Neutrophils # Man Lymphocytes # (Manual) Monocytes # (Manual) ABG pH POC ABG pCO2 POC ABG pO2 ABG Hemoglobin ABG Oxyhemoglobin ABG Sodium ABG Potassium ABG Chloride ABG Glucose Carboxyhemoglobin Sodium 148 H Potassium Chloride 110.4 H BUN 124 H Creatinine 3.4 H Glucose 208 H POC Glucose 163 H 185 H Calcium 8.3 L Phosphorus Magnesium AST ALT Total Creatine Kinase CK-MB (CK-2) Troponin T Total Protein Albumin HDL Cholesterol TSH Free T3 Index Arterial Blood Glucose Arterial Blood Ionized Calcium Urine pH Urine WBC (Auto) Urine Creatinine Acetaminophen 05/02/21 05/02/21 05/03/21 17:28 23:32 03:57 WBC RBC Hgb Hct MCV MCH RDW Plt Count Lymph % (Auto) Seg Neutrophils % Seg Neuts % (Manual) Lymphocytes % (Manual) Monocytes % (Manual) Seg Neutrophils # Seg Neutrophils # Man Lymphocytes # (Manual) Monocytes # (Manual) ABG pH 7.531 H POC ABG pCO2 31.0 L POC ABG pO2 64.3 L ABG Hemoglobin 9.0 L ABG Oxyhemoglobin 92.6 L ABG Sodium 145.7 H ABG Potassium ABG Chloride 112.0 H ABG Glucose 202 H Carboxyhemoglobin Sodium Potassium Chloride BUN Creatinine Glucose POC Glucose 147 H 202 H Calcium Phosphorus Magnesium AST ALT Total Creatine Kinase CK-MB (CK-2) Troponin T Total Protein Albumin HDL Cholesterol TSH Free T3 Index Arterial Blood Glucose 202 H Arterial Blood Ionized Calcium Urine pH Urine WBC (Auto) Urine Creatinine Acetaminophen 05/03/21 05/03/21 05/03/21 05:14 05:44 11:10 WBC RBC Hgb Hct MCV MCH RDW Plt Count Lymph % (Auto) Seg Neutrophils % Seg Neuts % (Manual) Lymphocytes % (Manual) Monocytes % (Manual) Seg Neutrophils # Seg Neutrophils # Man Lymphocytes # (Manual) Monocytes # (Manual) ABG pH POC ABG pCO2 POC ABG pO2 ABG Hemoglobin ABG Oxyhemoglobin ABG Sodium ABG Potassium ABG Chloride ABG Glucose Carboxyhemoglobin Sodium 147 H Potassium Chloride 109.7 H BUN 121 H Creatinine 3.1 H Glucose 190 H POC Glucose 175 H 202 H Calcium Phosphorus Magnesium AST ALT Total Creatine Kinase CK-MB (CK-2) Troponin T Total Protein Albumin HDL Cholesterol TSH Free T3 Index Arterial Blood Glucose Arterial Blood Ionized Calcium Urine pH Urine WBC (Auto) Urine Creatinine Acetaminophen 05/03/21 05/04/21 05/04/21 23:58 04:57 04:57 WBC RBC 2.61 L Hgb 8.2 L Hct 25.4 L MCV 98 H MCH RDW 15.3 H Plt Count Lymph % (Auto) Seg Neutrophils % Seg Neuts % (Manual) Lymphocytes % (Manual) Monocytes % (Manual) Seg Neutrophils # Seg Neutrophils # Man Lymphocytes # (Manual) Monocytes # (Manual) ABG pH POC ABG pCO2 POC ABG pO2 ABG Hemoglobin ABG Oxyhemoglobin ABG Sodium ABG Potassium ABG Chloride ABG Glucose Carboxyhemoglobin Sodium 147 H Potassium Chloride 111.0 H BUN 104 H Creatinine 2.8 H Glucose 179 H POC Glucose 131 H Calcium Phosphorus Magnesium AST ALT Total Creatine Kinase CK-MB (CK-2) Troponin T Total Protein Albumin HDL Cholesterol TSH Free T3 Index Arterial Blood Glucose Arterial Blood Ionized Calcium Urine pH Urine WBC (Auto) Urine Creatinine Acetaminophen 05/04/21 05/04/21 05/04/21 05:19 11:28 17:02 WBC RBC Hgb Hct MCV MCH RDW Plt Count Lymph % (Auto) Seg Neutrophils % Seg Neuts % (Manual) Lymphocytes % (Manual) Monocytes % (Manual) Seg Neutrophils # Seg Neutrophils # Man Lymphocytes # (Manual) Monocytes # (Manual) ABG pH POC ABG pCO2 POC ABG pO2 ABG Hemoglobin ABG Oxyhemoglobin ABG Sodium ABG Potassium ABG Chloride ABG Glucose Carboxyhemoglobin Sodium Potassium Chloride BUN Creatinine Glucose POC Glucose 168 H 206 H 213 H Calcium Phosphorus Magnesium AST ALT Total Creatine Kinase CK-MB (CK-2) Troponin T Total Protein Albumin HDL Cholesterol TSH Free T3 Index Arterial Blood Glucose Arterial Blood Ionized Calcium Urine pH Urine WBC (Auto) Urine Creatinine Acetaminophen 05/04/21 05/05/21 05/05/21 23:13 04:55 05:15 WBC RBC Hgb Hct MCV MCH RDW Plt Count Lymph % (Auto) Seg Neutrophils % Seg Neuts % (Manual) Lymphocytes % (Manual) Monocytes % (Manual) Seg Neutrophils # Seg Neutrophils # Man Lymphocytes # (Manual) Monocytes # (Manual) ABG pH POC ABG pCO2 POC ABG pO2 ABG Hemoglobin ABG Oxyhemoglobin ABG Sodium ABG Potassium ABG Chloride ABG Glucose Carboxyhemoglobin Sodium Potassium Chloride BUN 91 H Creatinine 2.4 H Glucose 255 H POC Glucose 232 H 235 H Calcium Phosphorus Magnesium AST ALT Total Creatine Kinase CK-MB (CK-2) Troponin T Total Protein Albumin HDL Cholesterol TSH Free T3 Index Arterial Blood Glucose Arterial Blood Ionized Calcium Urine pH Urine WBC (Auto) Urine Creatinine Acetaminophen 05/05/21 05/05/21 05/05/21 11:41 17:46 23:40 WBC RBC Hgb Hct MCV MCH RDW Plt Count Lymph % (Auto) Seg Neutrophils % Seg Neuts % (Manual) Lymphocytes % (Manual) Monocytes % (Manual) Seg Neutrophils # Seg Neutrophils # Man Lymphocytes # (Manual) Monocytes # (Manual) ABG pH POC ABG pCO2 POC ABG pO2 ABG Hemoglobin ABG Oxyhemoglobin ABG Sodium ABG Potassium ABG Chloride ABG Glucose Carboxyhemoglobin Sodium Potassium Chloride BUN Creatinine Glucose POC Glucose 199 H 231 H 224 H Calcium Phosphorus Magnesium AST ALT Total Creatine Kinase CK-MB (CK-2) Troponin T Total Protein Albumin HDL Cholesterol TSH Free T3 Index Arterial Blood Glucose Arterial Blood Ionized Calcium Urine pH Urine WBC (Auto) Urine Creatinine Acetaminophen 05/06/21 05/06/21 05/06/21 04:00 05:37 07:12 WBC RBC Hgb Hct MCV MCH RDW Plt Count Lymph % (Auto) Seg Neutrophils % Seg Neuts % (Manual) Lymphocytes % (Manual) Monocytes % (Manual) Seg Neutrophils # Seg Neutrophils # Man Lymphocytes # (Manual) Monocytes # (Manual) ABG pH 7.464 H POC ABG pCO2 POC ABG pO2 74.2 L ABG Hemoglobin 10.5 L ABG Oxyhemoglobin ABG Sodium ABG Potassium ABG Chloride 110.0 H ABG Glucose 214 H Carboxyhemoglobin 0.4 L Sodium 146 H Potassium Chloride 110.4 H BUN 82 H Creatinine 2.3 H Glucose 154 H POC Glucose 165 H Calcium Phosphorus Magnesium AST ALT Total Creatine Kinase CK-MB (CK-2) Troponin T Total Protein Albumin HDL Cholesterol TSH Free T3 Index Arterial Blood Glucose 214 H Arterial Blood Ionized Calcium Urine pH Urine WBC (Auto) Urine Creatinine Acetaminophen 05/06/21 05/06/21 05/07/21 17:11 23:40 05:26 WBC RBC Hgb Hct MCV MCH RDW Plt Count Lymph % (Auto) Seg Neutrophils % Seg Neuts % (Manual) Lymphocytes % (Manual) Monocytes % (Manual) Seg Neutrophils # Seg Neutrophils # Man Lymphocytes # (Manual) Monocytes # (Manual) ABG pH POC ABG pCO2 POC ABG pO2 ABG Hemoglobin ABG Oxyhemoglobin ABG Sodium ABG Potassium ABG Chloride ABG Glucose Carboxyhemoglobin Sodium Potassium Chloride BUN Creatinine Glucose POC Glucose 126 H 165 H 156 H Calcium Phosphorus Magnesium AST ALT Total Creatine Kinase CK-MB (CK-2) Troponin T Total Protein Albumin HDL Cholesterol TSH Free T3 Index Arterial Blood Glucose Arterial Blood Ionized Calcium Urine pH Urine WBC (Auto) Urine Creatinine Acetaminophen 05/07/21 05/07/21 05/07/21 08:20 08:20 11:35 WBC RBC 2.58 L Hgb 7.9 L Hct 24.9 L MCV MCH RDW Plt Count Lymph % (Auto) Seg Neutrophils % Seg Neuts % (Manual) Lymphocytes % (Manual) Monocytes % (Manual) Seg Neutrophils # Seg Neutrophils # Man Lymphocytes # (Manual) Monocytes # (Manual) ABG pH POC ABG pCO2 POC ABG pO2 ABG Hemoglobin ABG Oxyhemoglobin ABG Sodium ABG Potassium ABG Chloride ABG Glucose Carboxyhemoglobin Sodium Potassium Chloride 108.4 H BUN 81 H Creatinine 2.4 H Glucose 133 H POC Glucose 112 H Calcium Phosphorus Magnesium AST ALT Total Creatine Kinase CK-MB (CK-2) Troponin T Total Protein Albumin HDL Cholesterol TSH Free T3 Index Arterial Blood Glucose Arterial Blood Ionized Calcium Urine pH Urine WBC (Auto) Urine Creatinine Acetaminophen 05/07/21 05/07/21 05/08/21 17:51 23:27 03:05 WBC RBC Hgb Hct MCV MCH RDW Plt Count Lymph % (Auto) Seg Neutrophils % Seg Neuts % (Manual) Lymphocytes % (Manual) Monocytes % (Manual) Seg Neutrophils # Seg Neutrophils # Man Lymphocytes # (Manual) Monocytes # (Manual) ABG pH 7.454 H POC ABG pCO2 POC ABG pO2 82.1 L ABG Hemoglobin 8.1 L ABG Oxyhemoglobin ABG Sodium ABG Potassium 4.8 H ABG Chloride 111.0 H ABG Glucose 194 H Carboxyhemoglobin Sodium Potassium Chloride BUN Creatinine Glucose POC Glucose 136 H 133 H Calcium Phosphorus Magnesium AST ALT Total Creatine Kinase CK-MB (CK-2) Troponin T Total Protein Albumin HDL Cholesterol TSH Free T3 Index Arterial Blood Glucose 194 H Arterial Blood Ionized Calcium Urine pH Urine WBC (Auto) Urine Creatinine Acetaminophen 05/08/21 05/08/21 05/08/21 05:52 07:07 07:07 WBC 12.0 H RBC 2.94 L Hgb 9.0 L Hct 28.5 L MCV MCH RDW Plt Count Lymph % (Auto) Seg Neutrophils % Seg Neuts % (Manual) Lymphocytes % (Manual) Monocytes % (Manual) Seg Neutrophils # Seg Neutrophils # Man Lymphocytes # (Manual) Monocytes # (Manual) ABG pH POC ABG pCO2 POC ABG pO2 ABG Hemoglobin ABG Oxyhemoglobin ABG Sodium ABG Potassium ABG Chloride ABG Glucose Carboxyhemoglobin Sodium Potassium Chloride BUN 73 H Creatinine 2.2 H Glucose 211 H POC Glucose 194 H Calcium Phosphorus Magnesium AST ALT Total Creatine Kinase CK-MB (CK-2) Troponin T Total Protein Albumin HDL Cholesterol TSH Free T3 Index Arterial Blood Glucose Arterial Blood Ionized Calcium Urine pH Urine WBC (Auto) Urine Creatinine Acetaminophen 05/08/21 05/08/21 05/08/21 11:19 17:20 23:22 WBC RBC Hgb Hct MCV MCH RDW Plt Count Lymph % (Auto) Seg Neutrophils % Seg Neuts % (Manual) Lymphocytes % (Manual) Monocytes % (Manual) Seg Neutrophils # Seg Neutrophils # Man Lymphocytes # (Manual) Monocytes # (Manual) ABG pH POC ABG pCO2 POC ABG pO2 ABG Hemoglobin ABG Oxyhemoglobin ABG Sodium ABG Potassium ABG Chloride ABG Glucose Carboxyhemoglobin Sodium Potassium Chloride BUN Creatinine Glucose POC Glucose 231 H 251 H 295 H Calcium Phosphorus Magnesium AST ALT Total Creatine Kinase CK-MB (CK-2) Troponin T Total Protein Albumin HDL Cholesterol TSH Free T3 Index Arterial Blood Glucose Arterial Blood Ionized Calcium Urine pH Urine WBC (Auto) Urine Creatinine Acetaminophen 05/09/21 05/09/21 05/09/21 05:39 07:36 11:39 WBC RBC Hgb Hct MCV MCH RDW Plt Count Lymph % (Auto) Seg Neutrophils % Seg Neuts % (Manual) Lymphocytes % (Manual) Monocytes % (Manual) Seg Neutrophils # Seg Neutrophils # Man Lymphocytes # (Manual) Monocytes # (Manual) ABG pH POC ABG pCO2 POC ABG pO2 ABG Hemoglobin ABG Oxyhemoglobin ABG Sodium ABG Potassium ABG Chloride ABG Glucose Carboxyhemoglobin Sodium Potassium Chloride BUN 64 H Creatinine 2.2 H Glucose 308 H POC Glucose 240 H 330 H Calcium Phosphorus Magnesium AST ALT Total Creatine Kinase CK-MB (CK-2) Troponin T Total Protein Albumin HDL Cholesterol TSH Free T3 Index Arterial Blood Glucose Arterial Blood Ionized Calcium Urine pH Urine WBC (Auto) Urine Creatinine Acetaminophen 05/09/21 05/09/21 05/10/21 17:37 23:15 05:15 WBC RBC Hgb Hct MCV MCH RDW Plt Count Lymph % (Auto) Seg Neutrophils % Seg Neuts % (Manual) Lymphocytes % (Manual) Monocytes % (Manual) Seg Neutrophils # Seg Neutrophils # Man Lymphocytes # (Manual) Monocytes # (Manual) ABG pH POC ABG pCO2 POC ABG pO2 ABG Hemoglobin ABG Oxyhemoglobin ABG Sodium ABG Potassium ABG Chloride ABG Glucose Carboxyhemoglobin Sodium Potassium Chloride BUN Creatinine Glucose POC Glucose 174 H 152 H 146 H Calcium Phosphorus Magnesium AST ALT Total Creatine Kinase CK-MB (CK-2) Troponin T Total Protein Albumin HDL Cholesterol TSH Free T3 Index Arterial Blood Glucose Arterial Blood Ionized Calcium Urine pH Urine WBC (Auto) Urine Creatinine Acetaminophen 05/10/21 05/10/21 05/10/21 05:36 11:29 17:35 WBC RBC Hgb Hct MCV MCH RDW Plt Count Lymph % (Auto) Seg Neutrophils % Seg Neuts % (Manual) Lymphocytes % (Manual) Monocytes % (Manual) Seg Neutrophils # Seg Neutrophils # Man Lymphocytes # (Manual) Monocytes # (Manual) ABG pH POC ABG pCO2 POC ABG pO2 ABG Hemoglobin ABG Oxyhemoglobin ABG Sodium ABG Potassium ABG Chloride ABG Glucose Carboxyhemoglobin Sodium Potassium Chloride 110.7 H BUN 54 H Creatinine 2.2 H Glucose 164 H POC Glucose 202 H 109 H Calcium Phosphorus Magnesium AST ALT Total Creatine Kinase CK-MB (CK-2) Troponin T Total Protein Albumin HDL Cholesterol TSH Free T3 Index Arterial Blood Glucose Arterial Blood Ionized Calcium Urine pH Urine WBC (Auto) Urine Creatinine Acetaminophen 05/11/21 05/11/21 05/11/21 05:38 07:10 11:54 WBC RBC Hgb Hct MCV MCH RDW Plt Count Lymph % (Auto) Seg Neutrophils % Seg Neuts % (Manual) Lymphocytes % (Manual) Monocytes % (Manual) Seg Neutrophils # Seg Neutrophils # Man Lymphocytes # (Manual) Monocytes # (Manual) ABG pH POC ABG pCO2 POC ABG pO2 ABG Hemoglobin ABG Oxyhemoglobin ABG Sodium ABG Potassium ABG Chloride ABG Glucose Carboxyhemoglobin Sodium Potassium 5.2 H Chloride 108.8 H BUN 50 H Creatinine 2.2 H Glucose 176 H POC Glucose 135 H 219 H Calcium Phosphorus Magnesium AST ALT Total Creatine Kinase CK-MB (CK-2) Troponin T Total Protein Albumin HDL Cholesterol TSH Free T3 Index Arterial Blood Glucose Arterial Blood Ionized Calcium Urine pH Urine WBC (Auto) Urine Creatinine Acetaminophen 05/11/21 05/11/21 05/12/21 17:51 22:50 04:51 WBC RBC Hgb Hct MCV MCH RDW Plt Count Lymph % (Auto) Seg Neutrophils % Seg Neuts % (Manual) Lymphocytes % (Manual) Monocytes % (Manual) Seg Neutrophils # Seg Neutrophils # Man Lymphocytes # (Manual) Monocytes # (Manual) ABG pH POC ABG pCO2 POC ABG pO2 ABG Hemoglobin ABG Oxyhemoglobin ABG Sodium ABG Potassium ABG Chloride ABG Glucose Carboxyhemoglobin Sodium Potassium Chloride 108.2 H BUN 49 H Creatinine 2.2 H Glucose 161 H POC Glucose 169 H 118 H Calcium Phosphorus Magnesium AST ALT Total Creatine Kinase CK-MB (CK-2) Troponin T Total Protein Albumin HDL Cholesterol TSH Free T3 Index Arterial Blood Glucose Arterial Blood Ionized Calcium Urine pH Urine WBC (Auto) Urine Creatinine Acetaminophen 05/12/21 05/12/21 05/12/21 05:05 10:31 11:50 WBC RBC Hgb Hct MCV MCH RDW Plt Count Lymph % (Auto) Seg Neutrophils % Seg Neuts % (Manual) Lymphocytes % (Manual) Monocytes % (Manual) Seg Neutrophils # Seg Neutrophils # Man Lymphocytes # (Manual) Monocytes # (Manual) ABG pH 7.498 H POC ABG pCO2 POC ABG pO2 75.8 L ABG Hemoglobin 7.3 L ABG Oxyhemoglobin 93.4 L ABG Sodium ABG Potassium ABG Chloride 108.0 H ABG Glucose 199 H Carboxyhemoglobin 1.6 H Sodium Potassium Chloride BUN Creatinine Glucose POC Glucose 160 H 160 H Calcium Phosphorus Magnesium AST ALT Total Creatine Kinase CK-MB (CK-2) Troponin T Total Protein Albumin HDL Cholesterol TSH Free T3 Index Arterial Blood Glucose 199 H Arterial Blood Ionized Calcium Urine pH Urine WBC (Auto) Urine Creatinine Acetaminophen 05/12/21 05/12/21 05/13/21 17:39 23:36 05:49 WBC RBC Hgb Hct MCV MCH RDW Plt Count Lymph % (Auto) Seg Neutrophils % Seg Neuts % (Manual) Lymphocytes % (Manual) Monocytes % (Manual) Seg Neutrophils # Seg Neutrophils # Man Lymphocytes # (Manual) Monocytes # (Manual) ABG pH POC ABG pCO2 POC ABG pO2 ABG Hemoglobin ABG Oxyhemoglobin ABG Sodium ABG Potassium ABG Chloride ABG Glucose Carboxyhemoglobin Sodium Potassium Chloride BUN Creatinine Glucose POC Glucose 148 H 148 H 173 H Calcium Phosphorus Magnesium AST ALT Total Creatine Kinase CK-MB (CK-2) Troponin T Total Protein Albumin HDL Cholesterol TSH Free T3 Index Arterial Blood Glucose Arterial Blood Ionized Calcium Urine pH Urine WBC (Auto) Urine Creatinine Acetaminophen 05/13/21 05/13/21 05/13/21 05:58 13:09 17:01 WBC RBC Hgb Hct MCV MCH RDW Plt Count Lymph % (Auto) Seg Neutrophils % Seg Neuts % (Manual) Lymphocytes % (Manual) Monocytes % (Manual) Seg Neutrophils # Seg Neutrophils # Man Lymphocytes # (Manual) Monocytes # (Manual) ABG pH POC ABG pCO2 POC ABG pO2 ABG Hemoglobin ABG Oxyhemoglobin ABG Sodium ABG Potassium ABG Chloride ABG Glucose Carboxyhemoglobin Sodium Potassium Chloride 108.0 H BUN 53 H Creatinine 2.2 H Glucose 178 H POC Glucose 191 H 151 H Calcium Phosphorus Magnesium AST ALT Total Creatine Kinase CK-MB (CK-2) Troponin T Total Protein Albumin HDL Cholesterol TSH Free T3 Index Arterial Blood Glucose Arterial Blood Ionized Calcium Urine pH Urine WBC (Auto) Urine Creatinine Acetaminophen 05/14/21 05/14/21 05/14/21 00:02 04:48 08:16 WBC RBC Hgb Hct MCV MCH RDW Plt Count Lymph % (Auto) Seg Neutrophils % Seg Neuts % (Manual) Lymphocytes % (Manual) Monocytes % (Manual) Seg Neutrophils # Seg Neutrophils # Man Lymphocytes # (Manual) Monocytes # (Manual) ABG pH POC ABG pCO2 POC ABG pO2 ABG Hemoglobin ABG Oxyhemoglobin ABG Sodium ABG Potassium ABG Chloride ABG Glucose Carboxyhemoglobin Sodium Potassium Chloride BUN 45 H Creatinine 2.0 H Glucose 207 H POC Glucose 148 H 193 H Calcium Phosphorus Magnesium AST ALT Total Creatine Kinase CK-MB (CK-2) Troponin T Total Protein Albumin HDL Cholesterol TSH Free T3 Index Arterial Blood Glucose Arterial Blood Ionized Calcium Urine pH Urine WBC (Auto) Urine Creatinine Acetaminophen 05/14/21 08:50 WBC RBC 2.16 L Hgb 7.0 L Hct 21.2 L MCV 98 H MCH 33 H RDW 16.0 H Plt Count Lymph % (Auto) Seg Neutrophils % Seg Neuts % (Manual) Lymphocytes % (Manual) Monocytes % (Manual) Seg Neutrophils # Seg Neutrophils # Man Lymphocytes # (Manual) Monocytes # (Manual) ABG pH POC ABG pCO2 POC ABG pO2 ABG Hemoglobin ABG Oxyhemoglobin ABG Sodium ABG Potassium ABG Chloride ABG Glucose Carboxyhemoglobin Sodium Potassium Chloride BUN Creatinine Glucose POC Glucose Calcium Phosphorus Magnesium AST ALT Total Creatine Kinase CK-MB (CK-2) Troponin T Total Protein Albumin HDL Cholesterol TSH Free T3 Index Arterial Blood Glucose Arterial Blood Ionized Calcium Urine pH Urine WBC (Auto) Urine Creatinine Acetaminophen Chest x-ray: other (none today) Allied health notes reviewed: nursing
--- NOTE | 2021-05-14 15:16 | Progress Note ---
Assessment and Plan 1. Acute kidney injury: Vasomotor ROJELIO. ATN likely. Renal US negative for hydro. Baseline renal function is unknown. Monitor renal function. Non-oliguric. BUN and creatinine level continue to improve. Avoid nephrotoxic agents. Meds dosage based on GFR. 2. FEN: Hypokalemia, improved, monitor. Hypernatremia, improved, monitor. Monitor lytes and volume status. 3. Acute hypoxemic respiratory failure: Extubated, re-intubated 04/24. Trached 05/07. On T-piece. 4. Acute encephalopathy: MRI brain negative. Seen by Neuro. 5. UTI: Pseudomonas and Earline. 6. Hypertension. 7. DM type 2. 8. Mild rhabdomyolysis. 9. Mildly complex R renal cyst. Subjective: Patient was seen and examined at the bedside. Examination: General appearance: well-developed, appears stated age, trached on T-piece HEENT: atraumatic Neck: trached Respiratory: Coarse breath sounds heard Heart: S1S2, no murmur Abdomen: soft, obese, bowel sounds heard, NT, PEG tube noted Integumentary: no obvious rash Neurologic: stuporous Ext: no edema noted : Kerr catheter Subjective Date of service: 05/14/21 Principal diagnosis: Ac. resp failure; AMS; Hypoglycemia; ROJELIO; Hyperkalemia; DM II Objective - Vital Signs Vital signs: Vital Signs - 12hr 05/14/21 05/14/21 05/14/21 04:00 04:01 05:01 Temperature 99.2 F Pulse Rate 84 86 81 Pulse Rate [ Anterior Bilateral Throughout] Respiratory 23 16 Rate Respiratory Rate [Anterior Bilateral Throughout] Blood Pressure 151/65 138/55 151/65 O2 Sat by Pulse 100 100 100 Oximetry O2 Sat by Pulse Oximetry [ Assessment] 05/14/21 05/14/21 05/14/21 06:01 06:49 07:00 Temperature Pulse Rate 79 75 76 Pulse Rate [ Anterior Bilateral Throughout] Respiratory 18 22 Rate Respiratory Rate [Anterior Bilateral Throughout] Blood Pressure 143/52 143/52 132/51 O2 Sat by Pulse 100 100 Oximetry O2 Sat by Pulse Oximetry [ Assessment] 05/14/21 05/14/21 05/14/21 08:00 08:32 08:33 Temperature 97.9 F Pulse Rate 80 80 Pulse Rate [ Anterior Bilateral Throughout] Respiratory 14 23 Rate Respiratory Rate [Anterior Bilateral Throughout] Blood Pressure 131/51 144/55 O2 Sat by Pulse 97 100 100 Oximetry O2 Sat by Pulse Oximetry [ Assessment] 05/14/21 05/14/21 05/14/21 08:52 09:00 10:00 Temperature Pulse Rate 78 Pulse Rate [ 80 Anterior Bilateral Throughout] Respiratory 22 Rate Respiratory 23 Rate [Anterior Bilateral Throughout] Blood Pressure 133/53 O2 Sat by Pulse 99 100 Oximetry O2 Sat by Pulse 100 Oximetry [ Assessment] 05/14/21 05/14/21 05/14/21 10:01 11:00 11:56 Temperature Pulse Rate 85 81 75 Pulse Rate [ Anterior Bilateral Throughout] Respiratory 26 H 15 20 Rate Respiratory Rate [Anterior Bilateral Throughout] Blood Pressure 143/55 139/57 139/57 O2 Sat by Pulse 100 100 100 Oximetry O2 Sat by Pulse Oximetry [ Assessment] 05/14/21 05/14/21 05/14/21 12:00 12:01 12:56 Temperature 98.5 F Pulse Rate 75 Pulse Rate [ Anterior Bilateral Throughout] Respiratory 21 27 H Rate Respiratory Rate [Anterior Bilateral Throughout] Blood Pressure 145/44 145/44 O2 Sat by Pulse 100 100 Oximetry O2 Sat by Pulse Oximetry [ Assessment] 05/14/21 05/14/21 05/14/21 13:01 14:01 15:00 Temperature Pulse Rate 71 76 77 Pulse Rate [ Anterior Bilateral Throughout] Respiratory 20 19 19 Rate Respiratory Rate [Anterior Bilateral Throughout] Blood Pressure 130/51 124/47 128/52 O2 Sat by Pulse 100 100 97 Oximetry O2 Sat by Pulse Oximetry [ Assessment] - Lab 05/15/21 05:51 05/15/21 05:51 Most recent lab results ABG pH 7.498 (7.320-7.450) H 05/12/21 10:31 ABG O2 Saturation 95.2 (0-100) 05/12/21 10:31 Calcium 9.6 mg/dL (8.4-10.2) 05/14/21 08:16 Phosphorus 2.60 mg/dL (2.5-4.5) 04/22/21 08:00 Magnesium 2.10 mg/dL (1.7-2.3) 04/23/21 07:02 Urine Creatinine 24.4 mg/dL (0.1-20.0) H 04/16/21 00:12 Urine Sodium 97 mmol/L 04/16/21 00:12 Medications & Allergies - Medications Allergies/Adverse Reactions: Allergies No Known Allergies Allergy (Unverified 04/15/21 17:41) Home Medications: Home Medications Medication Instructions Recorded Confirmed Last Taken Type Betaxolol HCl [Betoptic S 0.25% 1 drop OU BID 04/16/21 04/16/21 Unknown History SUSP] Bimatoprost [Lumigan 0.01%] 1 drop OU QPM 04/16/21 04/16/21 Unknown History Brimonidine Tartrate [Brimonidine 5 ml OU BID 04/16/21 04/16/21 Unknown History Tartrate 0.2%] Furosemide [Lasix TAB] 40 mg PO QDAY 04/16/21 04/16/21 Unknown History Gabapentin [Neurontin] 300 mg PO Q8HR 04/16/21 04/16/21 Unknown History HYDROcodone/APAP 10-325 [[place] 1 each PO Q6HR PRN 04/16/21 04/16/21 Unknown History 10/325] Hydralazine HCl 50 mg PO Q4HR 04/16/21 04/16/21 Unknown History Insulin Aspart Prot/Insuln Asp 52 units SQ HS 04/16/21 04/16/21 Unknown History [Novolog Mix 70-30 Flexpen] Metoprolol [Lopressor] 25 mg PO BID 04/16/21 04/16/21 Unknown History Pravastatin [Pravachol] 20 mg PO QHS 04/16/21 04/16/21 Unknown History Promethazine [Phenergan] 25 mg PO Q6HR 04/16/21 04/16/21 Unknown History allopurinoL [Zyloprim] 150 mg PO QDAY 04/16/21 04/16/21 Unknown History Active Medications: Generic Name Dose Route Start Last Admin Trade Name Freq PRN Reason Stop Dose Admin Acetaminophen 650 mg 04/15/21 19:11 04/30/21 20:14 Acetaminophen 325 Mg Tab PO 650 mg Q6H PRN Administration Pain MILD(1-3)/Fever >100.5/SEXTON Acetylcysteine 200 mg 05/09/21 16:00 05/14/21 08:35 Acetylcysteine 20% 200 Mg/1 Ml *For Inhalation Use* INHALATION 05/16/21 15:59 200 mg Q8HRT WOLFGANG Administration Albuterol 2.5 mg 05/09/21 13:16 05/14/21 08:35 Albuterol 2.5 Mg/3 Ml Nebu IH 2.5 mg Q6HRT PRN Administration Shortness Of Breath Amlodipine Besylate 10 mg 04/25/21 10:00 05/14/21 10:50 Amlodipine 10 Mg Tab PO 10 mg DAILY WOLFGANG Administration Lipase/Protease/Amylase 1 each 04/16/21 12:52 Lipase 10,500/Protease 25,000/Amylase 43,750 (Units) Dr Simpson FEEDTUBE PRN PRN For Clogged Feeding Tube Aspirin 81 mg 04/25/21 10:00 05/14/21 10:51 Aspirin 81 Mg Tab Chew PO 81 mg QDAY WOLFGANG Administration Bisacodyl 10 mg 04/17/21 11:01 05/03/21 09:50 Bisacodyl 10 Mg Rect Supp PA 10 mg QDAY PRN Administration Constipation Brimonidine Tartrate 1 drops 04/17/21 22:00 05/14/21 10:52 Brimonidine 0.15% Ophth Soln OU 1 drops BID WOLFGANG Administration Docusate Sodium 100 mg 04/29/21 15:00 05/14/21 10:51 Docusate Sodium 100 Mg/10 Ml Oral Liqd PO 100 mg BID WOLFGANG Administration Famotidine 20 mg 04/17/21 10:00 05/14/21 10:52 Famotidine 20 Mg Tab PO 20 mg DAILY WOLFGANG Administration Fentanyl 50 mcg 05/13/21 09:30 Fentanyl 100 Mcg/2 Ml Inj IV Q10MIN PRN ANALGESIA Heparin Sodium (Porcine) 5,000 unit 04/15/21 22:00 05/14/21 10:51 Heparin 5,000 Unit/1 Ml Vial SUB-Q 5,000 unit Q12HR WOLFGANG Administration Hydralazine HCl 10 mg 04/16/21 18:00 04/24/21 05:25 Hydralazine 20 Mg/1 Ml Inj IV 10 mg Q4HR PRN Administration Hypertension Hydralazine HCl 50 mg 05/03/21 14:00 05/14/21 13:11 Hydralazine 25 Mg Tab PO 50 mg Q8HR WOLFGANG Administration Hydrophilic Ointment 1 applic 04/15/21 17:24 Lip Therapy Vaseline TP Q2HR PRN Dry Lips Fentanyl Citrate 2,000 mcg in 100 mls @ 4.65 mls/hr 05/13/21 10:00 Fentanyl Drip Premix IV TITR WOLFGANG Protocol 1 MCG/KG/HR Insulin Human Isoph/Insulin Regular 25 unit 05/09/21 08:00 05/14/21 10:50 Insulin Nph/Regular 70/30 Inj SUB-Q 25 unit BIDDIAB WOLFGANG Administration Insulin Human Lispro 0 unit 04/16/21 15:00 05/14/21 13:17 Insulin Lispro 100 Unit/Ml SUB-Q 4 unit Q6HR WOLFGANG Administration Protocol Latanoprost 1 drops 04/17/21 18:00 05/13/21 18:33 Latanoprost 0.005% Ophth Soln 2.5 Ml OU 1 drops QPM WOLFGANG Administration Levothyroxine Sodium 25 mcg 04/19/21 06:00 05/14/21 06:49 Levothyroxine 25 Mcg Tab PO 25 mcg DAILY@0600 WOLFGANG Administration Lorazepam 2 mg 05/13/21 09:30 Lorazepam 2 Mg/Ml Vial IV Q4H PRN Agitation Metoprolol Tartrate 25 mg 04/19/21 10:00 05/14/21 10:51 Metoprolol Tartrate 25 Mg Tab PO 25 mg BID WOLFGANG Administration Multi-Ingred Cream/Lotion/Oil/Oint 1 applic 04/15/21 17:24 05/13/21 10:26 Mineral Oil/Petrolatum, White Ophth Oint 3.5 Gm OU 1 applic Q4HR PRN Administration Dry Eye(s) Pravastatin Sodium 20 mg 04/19/21 22:00 05/13/21 21:11 Pravastatin 20 Mg Tab PO 20 mg QHS WOLFGANG Administration Scopolamine 1 each 04/20/21 18:00 05/14/21 10:52 Scopolamine Transdermal Patch 72 Hr TD 1 each Q3D WOLFGANG Administration Simple Syrup 15 ml 04/16/21 12:52 Simple Syrup 15 Ml FEEDTUBE PRN PRN Hypoglycemia Simple Syrup 30 ml 04/16/21 12:52 Simple Syrup 15 Ml FEEDTUBE PRN PRN Hypoglycemia Sodium Bicarbonate 325 mg 04/16/21 12:52 Sodium Bicarbonate 325 Mg Tab FEEDTUBE PRN PRN For Clogged Feeding Tube Sodium Chloride 10 ml 04/15/21 22:00 05/14/21 12:54 Sodium Chloride 0.9% 10 Ml Flush Syringe IV 10 ml BID WOLFGANG Administration Sodium Chloride 10 ml 04/15/21 19:11 04/24/21 05:27 Sodium Chloride 0.9% 10 Ml Flush Syringe IV 10 ml PRN PRN Administration LINE FLUSH Tamsulosin HCl 0.4 mg 04/25/21 14:00 05/14/21 10:51 Tamsulosin 0.4 Mg Cap PO 0.4 mg QDAY WOLFGANG Administration Timolol Maleate 1 drops 04/19/21 10:00 05/14/21 10:52 Timolol 0.5% Ophth Soln 5 Ml OU 1 drops QDAY WOLFGANG Administration
[2021-05-14] MEDS: LATANOPROST 0.005% OPHTH SOLN 2.5 ML OU SCH (17:33)
--- NOTE | 2021-05-14 18:01 | Progress Note ---
Assessment and Plan This is a 80-year-old female with HTN, DM, MA, breast CA s/p double mastectomy, TIA who presented with hypoglycemia, AMS who was admitted with SIRS, symptomatic bradycardia, acute metabolic encephalopathy, acute hypoxic respiratory failure, elevated TSH, hyperglycemia, hyponatremia, hypokalemia, ROJELIO and rhabdomyolysis Acute metabolic encephalopathy-persist Acute hypoxic respiratory failure (extubated 04/20)- Re-intubated secondary to S tridor and paradoxical breathing - s/p trach and PEG First-degree heart block Resolved ileus versus mechanical obstruction Acute kidney injury with vasomotor nephropathy UTI, Pseudomonas/ Earline Elevated TSH Mild rhabdomyolysis Hypertension Diabetes mellitus with hyperglycemia on admission CAD Hypothyroidism Chronic illness debilitymyopathy Obesity -CCM, nephrology, neurology, cardiology consulted, patient recommendations -S/p D10 and D5W gtt, on TF -S/p IV calcium gluconate, regular insulin, D50 -S/p transcutaneous pacing, intermittent demand pacer in place -Renal ultrasound findings consistent with acute on chronic kidney disease, mildly complex right renal cyst -Blood pressure monitoring per protocol -Accu-Cheks every 6, SSI, long acting insulin -IV hydralazine as needed -04/25 EEG is mildly abnormal with mild slowing noted throughout the recording, suggestive of mild cortical dysfunction and/or drug effect -04/20 EEG shows mildly abnormal record due to diffuse background slowing noted throughout the recording, intermittent motion artifact, patient intubated and sedated at time of study, no sign of seizures as well epilepticus noted, possible toxic metabolic encephalopathy, drug effect, possible postictal state cannot be totally excluded. -Avoid ACEi/ARB in setting of ROJELIO -Avoid AV arron blocking agents -Avoid nephrotoxic agents and renally dose medications -BB, add home antihtn regimen as needed -TSH 14.1, T4 4.1, T3 1.1-started on levothyroxine -As needed racemic epinephrine -S/p steroids -s/p Antibiotic therapy -Trend CBC, BMP DVT/GI prophylaxis: Heparin subcu, PPI, SCDs to bilateral lower extremities while in bed Disposition: ICU The high probability of a clinically significant, sudden or life threatening deterioration of the [PULMONARY, CARDIAC, RENAL] system(s) required my full and direct attention, intervention and personal management. The aggregate critical care time was [35] minutes. This time is in addition to time spent performing reported procedures but includes the following: [X] Data Review and interpretation [X] Patient assessment and monitoring of vital signs [X] Documentation [X] Medication orders and management Brief history This is a 80-year-old female with hypertension, diabetes mellitus, MA, breast cancer s/p double mastectomy, and a TIA who presented with hypoglycemia and altered mental status on 04/15 via EMS. Per EMS patient was unresponsive on their arrival and her blood glucose was 38 and she received 1 amp of dextrose patient continued to be unresponsive and only moaned with her eyes deviating to the left. Work-up in the emergency department revealed SIRS, symptomatic bradycardia, acute metabolic encephalopathy, acute hypoxic respiratory failure, elevated TSH, hyperglycemia, hyponatremia, hyperkalemia, acute kidney injury with ATN, and rhabdomyolysis Daily clinical course; 04/16: Neurology consulted, COVID-19 PCR negative, D10 drip decreased and alicia ntually discontinued by [facility] and started on D5W for 1 L. Hydralazine as needed. Patient had hyper kalemia today and was treated with D50, insulin and Kayexalate. This time examination patient is on assist control tidal volume 450, rate of 16, PEEP of 6 and 25% FiO2. 04/17: Patient started on low-dose beta-angel per cardiology, CPAP trial again per [facility], BUN/creatinine holding steady and hypochloremia/hyponatremia slightly improved and hypokalemia has resolved. This morning a KUB was obtained which was concerning for ileus versus mechanical obstruction and surgery was consulted. Patient was made n.p.o. and NG tube placed to wall suction. Patient was given suppository. Per RN patient did not have a BM even though she was given Kayexalate yesterday. Will obtain a KUB in the a.m. Neurology was consulted yesterday and will await further recommendations. Nephew updated at bedside today, Carlos Romero. 04/18: Neurology has ordered EEG/MRI B, [facility] continues to wean MV. Persistent low grade temperature so we will obtain BCx2/UA. Patient has improving leukocytosis, hyponatremia, renal function studies and hypochloremia. She has hypokalemia today which is being repleted. Surgery has signed off today and has okayed resumption of TF. [facility] will trial CPAP for longer today and plans to attempt extubation in AM. Family has requested transfer to [facility] and Dr. Gordon will attempt to contact transfer center. I updated her nephew, Carlos Romero over the phone today abouyt current events and update on transfer ([facility] will conduct a utilization review) 04/19: This morning patient is on CPAP trial at the time of examination, noted to be hypertensive and metoprolol increased to home dose, started on synthroid by CCM, lantus started re hyperglycemia, MRI completed with no acute findings. Severe hypokalemia (repleted and Mg pending). CCM will contact CPAP trial again today with possible trial extubation tomorrow. 04/20: Patient's leukocytosis and kidney function tests continue to improve. Patient is hypertensive overnight we will restart home hydralazine. [facility] plans to extubate patient today. Family is attempting to transfer to another facility. EEG pending, RT will atmept to contact wireless cellular technician. Urine culture grew gram negative rods. Increase in lantus 04/21: Increase in Lantus, repleted phos. Patient has started this afternoon and was given racemic epinephrine and started on steroids. Patient will have BiPAP as needed. We will recheck BMP in the a.m. renal function studies continues to decrease. Patient has been hypertensive on evaluation regimen has been changed . 04/22: Lantus increased for hyperglycemia and add amlodipine for better BP control. Patient is on steroids. OT suctioned by RN with catheter in oral care kit and received copious amounts of secretions. Cr continues to decrease. Culture grew Pseudomonas and was changed in accordance to sensitivity. Kerr removed today after clearance from nephrology. 04/23: MRI of the brain was done and unremarkable. Will obtain reconsult to nephrology for further assistance as patient remains in profound encephalopathy despite improvement of blood sugar. Will repeat chest x-ray as patient does have significant congestion physical exam. Tube feeds still ongoing. Continue aspiration precautions. Continue antibiotics when completed for Pseudomonas management 04/24: Neurology input noted, patient unfortunately with no improvement mental status [place], continues with congestion, will defer with Trial Examiner for lasix in the setting of renal failure. will give kayexlate for hyperkalemia, still moans and groans, mittens in place. 04/25: Patient currently intubated, on restraints for safety, Profund encephalopathy persist, although awake she is not following any commands, Call placed to [facility] to see if they will accept transfer for ENT evaluation, while CT neck was negative, it was degraded by motion and unable to determent why patient had this stridor, Racemic Epinephrine was given, [facility] is on ICU saturation, but will call back with an ENT to discuss case. Renal function mildly worse, continue to monitor. Per cardiology, no further arrhythmias noted since admission. Given short duration of atrial fibrillation, along with pt's age, renal fxn, and other co- morbidities,...will resume additional medical therapies for underlying severe multi-vessel CAD (bASA & Plavix). Pt has previously declined intervention of known lesions as per her [employer]. 04/26: Now with febrile illness, ?developing infection, start on empiric abx, check lactate level, blood cultures, continue management per Residential Installer, Monitor leukocytosis, agree with Trach, family updated about denials in transfer request from outside hospitals. 04/27: WBC improving some, still with fever despite antibotics, ID consulted. CXR clear, continue current management, Trach will be planned if ok with family. Bl ood sugar remains elevated, will adjust insulin LANTUS to 40 units. Patient had previously completed Cefepime. Mental status remains unchanged, still moves upper ext. continue restraints 04/28: Continue supportive care. No new fever noted. Critical care physician will determine if patient should be have a trial of extubation again or if we should proceed straight to trach. Again continue to monitor mental status for complete improvement. 04/29: Per Residential Installer discussion with family, will proceed to Tracheostomy, Patients mental status still fluctuating, Continue current management. Surgeon consulted. 04/30: General surgery consulted for trach, continue to trend CBC and BMP. Kidney function slightly worsened today. Increase in Lantus. Tmax 100.2, per ID will consider imaging if leukocytosis remains elevated with fevers. Plavix held for possible tracheostomy next week. 05/01: Patient fever curve is trending down with improving leukocytosis. Patient renal function worsened today. She remains hyperglycemic and her Lantus was increased to her home dose of Novolin 70/30. Patient was rate controlled yesterday due to T-max of 101. She remains on CMV tidal volume 450, rate of 10, PEEP of 6 and 30% FiO2. We will increase the water flushes given slight hypernatremia. Dr. Andrea updated nephew (Carlos) at bedside. CPAP trails. 05/02: Patient's hypernatremia and hyperchloremia slightly worsened and femur fractures were increased. Kidney functions remain the same however BUN is in the 100s. Nephrology is following. Kerr catheter was removed. Awaiting trach placement with possibility on Friday. 05/03: Patient grew Earline in her urine culture however per ID and the Kerr was already exchanged. Patient is on cefepime and Flagyl. Plavix still on hold awaiting trach. CCM started the patient on half-normal saline at 75 mL/h for 2 L related to azatoma and hypernatremia. Patient mental status continues to wax and wane. Creatinine is 3.1 today from 3.4 yesterday. Patient had a bowel movement today. Patient remains hyperglycemic and Lantus was changed from a.m. to p.m.. 05/04: Patient's renal function is improving, surgery obtain consent for trach/PEG scheduled for 05/07, antibiotics to end tomorrow. We will obtain BMP in the a.m. Lantus dosage change from AC to at bedtime in hopes of better glycemic control. 05/05: Patient Lantus dose is changed to twice daily in hopes of better glycemic control. Awaiting surgical procedure hopefully on Friday. Patient's BUN/creatinine improved and hypernatremia has resolved. 05/06: Patient has slight hypernatremia and hyperchloremia and improvement to BUN/creatinine. Better glycemic control. Awaiting trach on Friday. NGT was displaced but now replaced and TF resumed. 05/07 This is a 80-year-old female with HTN, DM, MA, breast CA s/p double mastectomy, TIA who presented with hypoglycemia, AMS who was admitted with SIRS, symptomatic bradycardia, acute metabolic encephalopathy, acute hypoxic respiratory failure, elevated TSH, hyperglycemia, hyponatremia, hypokalemia, ROJELIO and rhabdomyolysis. She is for Trach and PEG today. 05/08: s/p trach and PEG placement yesterday. cont to monitor, wean off from vent as tolertaed 05/09: Patient started on tube feeding and tolerating well. Currently on CPAP setting with newly placed trach. Discussed with case management and patient would need placement. Continue supportive care and follow clinically. 05/10: Continue supportive care, patient is tolerating tube feeding diet. Remains on CPAP with trach. Pending LTAC placement. 05/11: Continue supportive care, patient is tolerating tube feeding diet. Remains on CPAP with trach. Plan to wean off from Vent as tolerates and to place on t-piece. 05/12; Patient placed on t-piece today, tolerating TF, cont to monitor clinically. follow CBC/BMP 05/13: Remains on t-piece, plan to wean off to wall T-piece. If unable to wean off from vent then patient will need criteria for LTAC upon her insurance requirement. If she tolerates weaning trial and able to maintain T-piece then she will be discharged back to [facility]. Ordered for a.m. labs. Continue to follow clinically with supportive care. 05/14: Pending placement. Patient back on Mechanical ventilation today with trach tube. Hemoglobin 7.0. Will transfuse 1 unit packed RBC. Continue to monitor clinically. Subjective Date of service: 05/14/21 Principal diagnosis: Ac. resp failure; AMS; Hypoglycemia; ROJELIO; Hyperkalemia; DM II Interval history: Patient seen and examined. Medical records and medication list reviewed. No acute event overnight noted by the RN. Patient remains on trach tube, on tube feeding - tolerating well Discussed plan of care at bedside with patient's RN. Objective - Exam Narrative Exam: General appearance: Present: no acute distress, intubated on mechanical ventilation - EENT Eyes: Present: PERRL, EOM intact - Neck Neck: Present: normal ROM, trach in place - Respiratory Respiratory effort: normal Respiratory: bilateral: diminished - Cardiovascular Rhythm: regular Heart Sounds: Present: S1 & S2. Absent: systolic murmur, diastolic murmur - Extremities Extremities: no ischemia, pulses intact, pulses symmetrical, normal temperature, normal color Peripheral Pulses: within normal limits - Abdominal General gastrointestinal: soft, non-tender, non-distended, normal bowel sounds - Integumentary Integumentary: Present: warm, dry - Psychiatric Psychiatric: cooperative - Neurologic Neurologic: moves all extremities - Constitutional Vitals: Vital Signs - 12hr 05/14/21 05/14/21 05/14/21 06:01 06:49 07:00 Temperature Pulse Rate 79 75 76 Pulse Rate [ Anterior Bilateral Throughout] Respiratory 18 22 Rate Respiratory Rate [Anterior Bilateral Throughout] Blood Pressure 143/52 143/52 132/51 O2 Sat by Pulse 100 100 Oximetry O2 Sat by Pulse Oximetry [ Assessment] 05/14/21 05/14/21 05/14/21 08:00 08:32 08:33 Temperature 97.9 F Pulse Rate 80 80 Pulse Rate [ Anterior Bilateral Throughout] Respiratory 14 23 Rate Respiratory Rate [Anterior Bilateral Throughout] Blood Pressure 131/51 144/55 O2 Sat by Pulse 97 100 100 Oximetry O2 Sat by Pulse Oximetry [ Assessment] 05/14/21 05/14/21 05/14/21 08:52 09:00 10:00 Temperature Pulse Rate 78 Pulse Rate [ 80 Anterior Bilateral Throughout] Respiratory 22 Rate Respiratory 23 Rate [Anterior Bilateral Throughout] Blood Pressure 133/53 O2 Sat by Pulse 99 100 Oximetry O2 Sat by Pulse 100 Oximetry [ Assessment] 05/14/21 05/14/21 05/14/21 10:01 11:00 11:56 Temperature Pulse Rate 85 81 75 Pulse Rate [ Anterior Bilateral Throughout] Respiratory 26 H 15 20 Rate Respiratory Rate [Anterior Bilateral Throughout] Blood Pressure 143/55 139/57 139/57 O2 Sat by Pulse 100 100 100 Oximetry O2 Sat by Pulse Oximetry [ Assessment] 05/14/21 05/14/21 05/14/21 12:00 12:01 12:56 Temperature 98.5 F Pulse Rate 75 Pulse Rate [ Anterior Bilateral Throughout] Respiratory 21 27 H Rate Respiratory Rate [Anterior Bilateral Throughout] Blood Pressure 145/44 145/44 O2 Sat by Pulse 100 100 Oximetry O2 Sat by Pulse Oximetry [ Assessment] 05/14/21 05/14/21 05/14/21 13:01 14:01 15:00 Temperature Pulse Rate 71 76 77 Pulse Rate [ Anterior Bilateral Throughout] Respiratory 20 19 19 Rate Respiratory Rate [Anterior Bilateral Throughout] Blood Pressure 130/51 124/47 128/52 O2 Sat by Pulse 100 100 97 Oximetry O2 Sat by Pulse Oximetry [ Assessment] 05/14/21 05/14/21 05/14/21 16:00 16:46 17:00 Temperature Pulse Rate 76 81 79 Pulse Rate [ 78 Anterior Bilateral Throughout] Respiratory 20 24 20 Rate Respiratory 24 Rate [Anterior Bilateral Throughout] Blood Pressure 137/58 144/66 144/66 O2 Sat by Pulse 96 100 100 Oximetry O2 Sat by Pulse 100 Oximetry [ Assessment] 05/14/21 17:42 Temperature 98.8 F Pulse Rate Pulse Rate [ Anterior Bilateral Throughout] Respiratory Rate Respiratory Rate [Anterior Bilateral Throughout] Blood Pressure O2 Sat by Pulse Oximetry O2 Sat by Pulse Oximetry [ Assessment] - Labs CBC & Chem 7: 05/14/21 08:50 05/14/21 08:16 Labs: Abnormal lab results 05/13/21 05/14/21 05/14/21 Range/Units 17:01 00:02 04:48 RBC (3.65-5.03) M/mm3 Hgb (10.1-14.3) gm/dl Hct (30.3-42.9) % MCV (79-97) fl MCH (28-32) pg RDW (13.2-15.2) % BUN (7-17) mg/dL Creatinine (0.6-1.2) mg/dL Glucose (65-100) mg/dL POC Glucose 151 H 148 H 193 H (70-105) mg/dL 05/14/21 05/14/21 05/14/21 Range/Units 08:16 08:50 12:44 RBC 2.16 L (3.65-5.03) M/mm3 Hgb 7.0 L (10.1-14.3) gm/dl Hct 21.2 L (30.3-42.9) % MCV 98 H (79-97) fl MCH 33 H (28-32) pg RDW 16.0 H (13.2-15.2) % BUN 45 H (7-17) mg/dL Creatinine 2.0 H (0.6-1.2) mg/dL Glucose 207 H (65-100) mg/dL POC Glucose 215 H (70-105) mg/dL 05/14/21 Range/Units 17:29 RBC (3.65-5.03) M/mm3 Hgb (10.1-14.3) gm/dl Hct (30.3-42.9) % MCV (79-97) fl MCH (28-32) pg RDW (13.2-15.2) % BUN (7-17) mg/dL Creatinine (0.6-1.2) mg/dL Glucose (65-100) mg/dL POC Glucose 118 H (70-105) mg/dL HEART Score - HEART Score Troponin: Troponin T 0.065 ng/mL (0.00-0.029) H 04/20/21 03:32
[2021-05-14] MEDS ORDERED: SODIUM CHLORIDE 0.9% 500 ML 500 ML IV ONE (19:00)
[2021-05-14] MEDS: PRAVASTATIN 20 MG TAB PO SCH (22:56)
[2021-05-14] MEDS ORDERED: SODIUM CHLORIDE 0.9% 500 ML 500 ML ONE (23:08)
[2021-05-14] MEDS ORDERED: ACETAMINOPHEN 325 MG TAB PO ONE (23:39)
[2021-05-15] MEDS: ALBUTEROL 2.5 MG/3 ML NEBU IH PRN ×3 (03:19→17:26)
[2021-05-15] MEDS: ACETYLCYSTEINE 20% 200 MG/1 ML *FOR INHALATION USE INHALATION SCH ×3 (03:19→17:25)
[2021-05-15] MEDS: INSULIN LISPRO 100 UNIT/ML SUB-Q SCH ×3 (05:50→18:39)
[2021-05-15] MEDS: LEVOTHYROXINE 25 MCG TAB PO SCH (05:56)
[2021-05-15] MEDS: hydrALAZINE 25 MG TAB PO SCH (05:56)
[2021-05-15 06:12] LABS: Basophils % (Auto) 0.4 % (0.0-1.8); Eosinophils # (Auto) 0.2 K/mm3 (0.0-0.4); Eosinophils % (Auto) 2.9 % (0.0-4.3); Hematocrit 24.6 % (30.3-42.9); Lymphocytes # (Auto) 1.5 K/mm3 (1.2-5.4); Lymphocytes % (Auto) 21.1 % (13.4-35.0); Mean Corpuscular HGB Conc 33 % (30-34); Mean Corpuscular Volume 94 fl (79-97); Monocytes # (Auto) 1.1 K/mm3 (0.0-0.8); Monocytes % (Auto) 15.3 % (0.0-7.3); Platelet Count 243 K/mm3 (140-440)
[2021-05-15 06:30] LABS: Calcium 9.6 mg/dL (8.4-10.2)
--- NOTE | 2021-05-15 07:33 | Progress Note ---
Assessment and Plan 1. Acute kidney injury: Vasomotor ROJELIO. ATN likely. Renal US negative for hydro. Baseline renal function is unknown. Monitor renal function. Non-oliguric. BUN and creatinine level continue to improve. Avoid nephrotoxic agents. Meds dosage based on GFR. 2. FEN: Hypokalemia, Kayexalate, monitor. Hypernatremia, improved, monitor. Monitor lytes and volume status. 3. Acute hypoxemic respiratory failure: Extubated, re-intubated 04/24. Trached 05/07. On T-piece. 4. Acute encephalopathy: MRI brain negative. Seen by Neuro. 5. UTI: Pseudomonas and Earline. 6. Hypertension. 7. DM type 2. 8. Mild rhabdomyolysis. 9. Mildly complex R renal cyst. Subjective: Patient was seen and examined at the bedside. Examination: General appearance: well-developed, appears stated age, trached on T-piece HEENT: atraumatic Neck: trached Respiratory: Coarse breath sounds heard Heart: S1S2, no murmur Abdomen: soft, obese, bowel sounds heard, NT, PEG tube noted Integumentary: no obvious rash Neurologic: stuporous Ext: no edema noted : Kerr catheter Subjective Date of service: 05/15/21 Principal diagnosis: Ac. resp failure; AMS; Hypoglycemia; ROJELIO; Hyperkalemia; DM II Objective - Vital Signs Vital signs: Vital Signs - 12hr 05/14/21 05/14/21 05/14/21 19:55 20:00 20:01 Temperature 99.5 F Pulse Rate 81 Pulse Rate [ Anterior Bilateral Throughout] Respiratory 24 Rate Respiratory Rate [Anterior Bilateral Throughout] Blood Pressure 176/44 O2 Sat by Pulse 100 70 L Oximetry O2 Sat by Pulse Oximetry [ Assessment] 05/14/21 05/14/21 05/14/21 21:01 21:02 22:01 Temperature Pulse Rate 78 80 Pulse Rate [ Anterior Bilateral Throughout] Respiratory 21 19 Rate Respiratory Rate [Anterior Bilateral Throughout] Blood Pressure 194/52 184/43 O2 Sat by Pulse 96 97 100 Oximetry O2 Sat by Pulse 97 Oximetry [ Assessment] 05/14/21 05/14/21 05/14/21 22:55 22:56 23:00 Temperature Pulse Rate 85 83 87 Pulse Rate [ Anterior Bilateral Throughout] Respiratory 26 H 23 Rate Respiratory Rate [Anterior Bilateral Throughout] Blood Pressure 184/43 184/43 184/43 O2 Sat by Pulse 100 100 Oximetry O2 Sat by Pulse Oximetry [ Assessment] 05/14/21 05/14/21 05/14/21 23:01 23:10 23:14 Temperature 99.3 F Pulse Rate 85 82 Pulse Rate [ Anterior Bilateral Throughout] Respiratory 28 H 21 Rate Respiratory Rate [Anterior Bilateral Throughout] Blood Pressure 171/57 O2 Sat by Pulse 100 98 Oximetry O2 Sat by Pulse Oximetry [ Assessment] 05/14/21 05/14/21 05/14/21 23:28 23:29 23:59 Temperature 98.4 F 98.6 F Pulse Rate 77 66 66 Pulse Rate [ Anterior Bilateral Throughout] Respiratory 17 15 15 Rate Respiratory Rate [Anterior Bilateral Throughout] Blood Pressure 184/43 133/53 133/53 O2 Sat by Pulse 100 95 95 Oximetry O2 Sat by Pulse Oximetry [ Assessment] 05/15/21 05/15/21 05/15/21 00:00 00:10 00:29 Temperature 98.6 F Pulse Rate 73 66 Pulse Rate [ Anterior Bilateral Throughout] Respiratory 17 26 H 15 Rate Respiratory Rate [Anterior Bilateral Throughout] Blood Pressure 171/57 171/57 O2 Sat by Pulse 100 95 Oximetry O2 Sat by Pulse Oximetry [ Assessment] 05/15/21 05/15/21 05/15/21 00:39 00:59 01:00 Temperature 98.6 F Pulse Rate 66 66 Pulse Rate [ Anterior Bilateral Throughout] Respiratory 15 15 Rate Respiratory Rate [Anterior Bilateral Throughout] Blood Pressure 133/53 133/53 O2 Sat by Pulse 99 95 95 Oximetry O2 Sat by Pulse Oximetry [ Assessment] 05/15/21 05/15/21 05/15/21 01:29 01:59 02:00 Temperature 98.6 F 98.6 F Pulse Rate 66 73 73 Pulse Rate [ Anterior Bilateral Throughout] Respiratory 15 17 13 Rate Respiratory Rate [Anterior Bilateral Throughout] Blood Pressure 133/53 183/100 135/51 O2 Sat by Pulse 95 100 100 Oximetry O2 Sat by Pulse Oximetry [ Assessment] 05/15/21 05/15/21 05/15/21 02:29 02:59 03:00 Temperature 98.6 F 98.6 F Pulse Rate 73 73 73 Pulse Rate [ Anterior Bilateral Throughout] Respiratory 17 17 17 Rate Respiratory Rate [Anterior Bilateral Throughout] Blood Pressure 165/100 183/100 183/100 O2 Sat by Pulse 100 100 100 Oximetry O2 Sat by Pulse Oximetry [ Assessment] 05/15/21 05/15/21 05/15/21 03:15 03:23 03:25 Temperature 99.6 F Pulse Rate 73 70 Pulse Rate [ 72 Anterior Bilateral Throughout] Respiratory Rate Respiratory 18 Rate [Anterior Bilateral Throughout] Blood Pressure 166/76 O2 Sat by Pulse 100 100 Oximetry O2 Sat by Pulse 100 Oximetry [ Assessment] 05/15/21 05/15/21 05/15/21 04:00 05:00 05:48 Temperature Pulse Rate 68 76 76 Pulse Rate [ Anterior Bilateral Throughout] Respiratory 14 17 Rate Respiratory Rate [Anterior Bilateral Throughout] Blood Pressure 166/76 163/67 O2 Sat by Pulse 100 100 100 Oximetry O2 Sat by Pulse Oximetry [ Assessment] 05/15/21 05/15/21 05:56 06:00 Temperature Pulse Rate 74 74 Pulse Rate [ Anterior Bilateral Throughout] Respiratory 20 Rate Respiratory Rate [Anterior Bilateral Throughout] Blood Pressure 179/62 179/62 O2 Sat by Pulse 100 Oximetry O2 Sat by Pulse Oximetry [ Assessment] - Lab 05/15/21 05:51 05/15/21 05:51 Most recent lab results ABG pH 7.498 (7.320-7.450) H 05/12/21 10:31 ABG O2 Saturation 95.2 (0-100) 05/12/21 10:31 Calcium 9.6 mg/dL (8.4-10.2) 05/15/21 05:51 Phosphorus 2.60 mg/dL (2.5-4.5) 04/22/21 08:00 Magnesium 2.10 mg/dL (1.7-2.3) 04/23/21 07:02 Urine Creatinine 24.4 mg/dL (0.1-20.0) H 04/16/21 00:12 Urine Sodium 97 mmol/L 04/16/21 00:12 Medications & Allergies - Medications Allergies/Adverse Reactions: Allergies No Known Allergies Allergy (Unverified 04/15/21 17:41) Home Medications: Home Medications Medication Instructions Recorded Confirmed Last Taken Type Betaxolol HCl [Betoptic S 0.25% 1 drop OU BID 04/16/21 04/16/21 Unknown History SUSP] Bimatoprost [Lumigan 0.01%] 1 drop OU QPM 04/16/21 04/16/21 Unknown History Brimonidine Tartrate [Brimonidine 5 ml OU BID 04/16/21 04/16/21 Unknown History Tartrate 0.2%] Furosemide [Lasix TAB] 40 mg PO QDAY 04/16/21 04/16/21 Unknown History Gabapentin [Neurontin] 300 mg PO Q8HR 04/16/21 04/16/21 Unknown History HYDROcodone/APAP 10-325 [[place] 1 each PO Q6HR PRN 04/16/21 04/16/21 Unknown History 10/325] Hydralazine HCl 50 mg PO Q4HR 04/16/21 04/16/21 Unknown History Insulin Aspart Prot/Insuln Asp 52 units SQ HS 04/16/21 04/16/21 Unknown History [Novolog Mix 70-30 Flexpen] Metoprolol [Lopressor] 25 mg PO BID 04/16/21 04/16/21 Unknown History Pravastatin [Pravachol] 20 mg PO QHS 04/16/21 04/16/21 Unknown History Promethazine [Phenergan] 25 mg PO Q6HR 04/16/21 04/16/21 Unknown History allopurinoL [Zyloprim] 150 mg PO QDAY 04/16/21 04/16/21 Unknown History Active Medications: Generic Name Dose Route Start Last Admin Trade Name Freq PRN Reason Stop Dose Admin Acetaminophen 650 mg 04/15/21 19:11 04/30/21 20:14 Acetaminophen 325 Mg Tab PO 650 mg Q6H PRN Administration Pain MILD(1-3)/Fever >100.5/SEXTON Acetylcysteine 200 mg 05/09/21 16:00 05/15/21 03:19 Acetylcysteine 20% 200 Mg/1 Ml *For Inhalation Use* INHALATION 05/16/21 15:59 200 mg Q8HRT WOLFGANG Administration Albuterol 2.5 mg 05/09/21 13:16 05/15/21 03:19 Albuterol 2.5 Mg/3 Ml Nebu IH 2.5 mg Q6HRT PRN Administration Shortness Of Breath Amlodipine Besylate 10 mg 04/25/21 10:00 05/14/21 10:50 Amlodipine 10 Mg Tab PO 10 mg DAILY WOLFGANG Administration Lipase/Protease/Amylase 1 each 04/16/21 12:52 Lipase 10,500/Protease 25,000/Amylase 43,750 (Units) Dr Cap FEEDTUBE PRN PRN For Clogged Feeding Tube Aspirin 81 mg 04/25/21 10:00 05/14/21 10:51 Aspirin 81 Mg Tab Chew PO 81 mg QDAY WOLFGANG Administration Bisacodyl 10 mg 04/17/21 11:01 05/03/21 09:50 Bisacodyl 10 Mg Rect Supp [place] 10 mg QDAY PRN Administration Constipation Brimonidine Tartrate 1 drops 04/17/21 22:00 05/14/21 23:21 Brimonidine 0.15% Ophth Soln OU 1 drops BID WOLFGANG Administration Docusate Sodium 100 mg 04/29/21 15:00 05/14/21 22:55 Docusate Sodium 100 Mg/10 Ml Oral Liqd PO 100 mg BID WOLFGANG Administration Famotidine 20 mg 04/17/21 10:00 05/14/21 10:52 Famotidine 20 Mg Tab PO 20 mg DAILY WOLFGANG Administration Fentanyl 50 mcg 05/13/21 09:30 Fentanyl 100 Mcg/2 Ml Inj IV Q10MIN PRN ANALGESIA Heparin Sodium (Porcine) 5,000 unit 04/15/21 22:00 05/14/21 23:20 Heparin 5,000 Unit/1 Ml Vial SUB-Q 5,[address] [facility] Administration Hydralazine HCl 10 mg 04/16/21 18:00 04/24/21 05:25 Hydralazine 20 Mg/1 Ml Inj IV 10 mg Q4HR PRN Administration Hypertension Hydralazine HCl 50 mg 05/03/21 14:00 05/15/21 05:56 Hydralazine 25 Mg Tab PO [address] [facility] Administration Hydrophilic Ointment 1 applic 04/15/21 17:24 Lip Therapy Vaseline TP Q2HR PRN Dry Lips Fentanyl Citrate 2,000 mcg in 100 mls @ 4.65 mls/hr 05/13/21 10:00 Fentanyl Drip Premix IV TITR [facility] Protocol 1 MCG/KG/HR Insulin Human Isoph/Insulin Regular 25 unit 05/09/21 08:00 05/14/21 17:32 Insulin Nph/Regular 70/30 Inj SUB-Q [address] [facility] Administration Insulin Human Lispro 0 unit 04/16/21 15:00 05/15/21 05:50 Insulin Lispro 100 Unit/Ml SUB-Q Not Given Q6HR [facility] Protocol Latanoprost 1 drops 04/17/21 18:00 05/14/21 17:33 Latanoprost 0.005% Ophth Soln 2.5 Ml OU 1 drops QPM WOLFGANG Administration Levothyroxine Sodium 25 mcg 04/19/21 06:00 05/15/21 05:56 Levothyroxine 25 Mcg Tab PO 25 mcg DAILY@0600 WOLFGANG Administration Lorazepam 2 mg 05/13/21 09:30 Lorazepam 2 Mg/Ml Vial IV Q4H PRN Agitation Metoprolol Tartrate 25 mg 04/19/21 10:00 05/14/21 22:55 Metoprolol Tartrate 25 Mg Tab PO 25 mg BID WOLFGANG Administration Multi-Ingred Cream/Lotion/Oil/Oint 1 applic 04/15/21 17:24 05/13/21 10:26 Mineral Oil/Petrolatum, White Ophth Oint 3.5 Gm OU 1 applic Q4HR PRN Administration Dry Eye(s) Pravastatin Sodium 20 mg 04/19/21 22:00 05/14/21 22:56 Pravastatin 20 Mg Tab PO 20 mg QHS WOLFGANG Administration Scopolamine 1 each 04/20/21 18:00 05/14/21 10:52 Scopolamine Transdermal Patch 72 Hr TD 1 each Q3D WOLFGANG Administration Simple Syrup 15 ml 04/16/21 12:52 Simple Syrup 15 Ml FEEDTUBE PRN PRN Hypoglycemia Simple Syrup 30 ml 04/16/21 12:52 Simple Syrup 15 Ml FEEDTUBE PRN PRN Hypoglycemia Sodium Bicarbonate 325 mg 04/16/21 12:52 Sodium Bicarbonate 325 Mg Tab FEEDTUBE PRN PRN For Clogged Feeding Tube Sodium Chloride 10 ml 04/15/21 22:00 05/14/21 23:21 Sodium Chloride 0.9% 10 Ml Flush Syringe IV 10 ml BID WOLFGANG Administration Sodium Chloride 10 ml 04/15/21 19:11 04/24/21 05:27 Sodium Chloride 0.9% 10 Ml Flush Syringe IV 10 ml PRN PRN Administration LINE FLUSH Tamsulosin HCl 0.4 mg 04/25/21 14:00 05/14/21 10:51 Tamsulosin 0.4 Mg Cap PO 0.4 mg QDAY WOLFGANG Administration Timolol Maleate 1 drops 04/19/21 10:00 05/14/21 10:52 Timolol 0.5% Ophth Soln 5 Ml OU 1 drops QDAY WOLFGANG Administration
[2021-05-15] MEDS: INSULIN NPH/REGULAR 70/30 INJ SUB-Q SCH ×2 (08:21→17:17)
[2021-05-15] MEDS ORDERED: SODIUM POLYSTYRENE 15 GM/60 ML ORAL LIQD PO ONE (09:00)
[2021-05-15] MEDS: TAMSULOSIN 0.4 MG CAP PO SCH (11:42)
[2021-05-15] MEDS: ASPIRIN 81 MG TAB CHEW PO SCH (11:42)
[2021-05-15] MEDS: FAMOTIDINE 20 MG TAB PO SCH (11:42)
[2021-05-15] MEDS: HEPARIN 5,000 UNIT/1 ML VIAL SUB-Q SCH ×2 (11:42→21:27)
[2021-05-15] MEDS: amLODIPine 10 MG TAB PO SCH (11:42)
[2021-05-15] MEDS: DOCUSATE SODIUM 100 MG/10 ML ORAL LIQD PO SCH ×2 (11:42→21:27)
[2021-05-15] MEDS: METOPROLOL TARTRATE 25 MG TAB PO SCH ×2 (11:42→21:28)
[2021-05-15] MEDS: BRIMONIDINE 0.15% OPHTH SOLN OU SCH ×2 (11:43→21:27)
[2021-05-15] MEDS: TIMOLOL 0.5% OPHTH SOLN 5 ML OU SCH (11:48)
[2021-05-15] MEDS: hydrALAZINE 100 MG TAB PO SCH ×2 (15:06→21:28)
--- NOTE | 2021-05-15 15:33 | Progress Note ---
Assessment and Plan Acute respiratory failure, on mechanical ventilatory support. Acute toxic metabolic encephalopathy Hypoglycemia ROJELIO Hyperkalemia Rhabdomyolysis Possible seizure activity DM II HTN CAD Obesity H/O breast cancer H/O TIA Leukocytosis Elevated serum TSH, possible hypothyroidism - AM ;abs reviewed and address - correct hyperkalemia per protocol - slowly advance t-piece trials as tolerated - rest on full support if fails - LTAC evaluation ongoing - continue care as below otherwise; - continue to wean supplemental oxygen for target O2 sat's > 90% acutely - VAP bundle addressed - continue lung protective strategies - continue bronchodilators with pulmonary hygiene per RT - continue Daily SAT and SBT assessment as tolerated - wean per pulmonary driven protocols otherwise - continue accuchecks with glycemic control per SSI (While critically ill target blood glucose of 140-180 mg/dL; avoid hypoglycemia) - sedation prn for target RASS 0 to -1 - avoid nephrotoxins, renally dose all medications - continue to avoid benzodiazepine's, reduce the possibility of delirium - complete AB's per ID rec's re: Cefepime and Flagyl - follow clinically trend fevers / WBC - prn analgesia per CPOT score - Maintenance of sleep-wake cycle, avoid delirium - continue enteral nutritional support at goal rate as tolerated - G.I. & VTE prophylaxis - PT/OT/ROM exercises - continue Flomax re: retention - continue mobility protocols for pressure ulcer prophylaxis - Monitor hemodynamics closely - continue other care per attending / other consultants - discharge planning ongoing concurrently .... Re-evaluate in am & prn CONDITION: CRITICAL PROGNOSIS: GUARDED CODE STATUS: FULL CODE The high probability of a clinically significant, sudden or life-threatening deterioration of the [respiratory, cardiovascular, GI & neurologic] system(s) required my full and direct attention, intervention and personal management. The aggregate critical care time was [33] minutes without overlap. Time includes spent on; [x] Data Review and interpretation [x] Patient assessment and monitoring of vital signs [x] Documentation [x] Medication orders and management Subjective Date of service: 05/15/21 Principal diagnosis: Ac. resp failure; AMS; Hypoglycemia; ROJELIO; Hyperkalemia; DM II Interval history: Patient is seen today for: Acute respiratory failure; AMS; Hypoglycemia; ROJELIO; Hyperkalemia; DM II; H/O breast cancer; Elevated serum TSH, possible hypothyroidism Seen and examined at bedside; 24hour events reviewed; nursing and respiratory care staff consulted; no adverse overnight events reported to me; resting peacefully in bed; again tired out on t-piece yesterday and rested on MVS; no em esis or overt aspiration; on t-piece now and tolerating well so far today Objective Vital Signs - 12hr 05/15/21 05/15/21 05/15/21 04:00 05:00 05:48 Temperature Pulse Rate 68 76 76 Pulse Rate [ Anterior Bilateral Throughout] Respiratory 14 17 Rate Respiratory Rate [Anterior Bilateral Throughout] Blood Pressure 166/76 163/67 O2 Sat by Pulse 100 100 100 Oximetry O2 Sat by Pulse Oximetry [ Assessment] 05/15/21 05/15/21 05/15/21 05:56 06:00 07:00 Temperature Pulse Rate 74 74 70 Pulse Rate [ Anterior Bilateral Throughout] Respiratory 20 18 Rate Respiratory Rate [Anterior Bilateral Throughout] Blood Pressure 179/62 179/62 198/67 O2 Sat by Pulse 100 100 Oximetry O2 Sat by Pulse Oximetry [ Assessment] 05/15/21 05/15/21 05/15/21 08:00 09:00 09:10 Temperature 99.1 F Pulse Rate 75 76 Pulse Rate [ 76 Anterior Bilateral Throughout] Respiratory 21 20 Rate Respiratory 23 Rate [Anterior Bilateral Throughout] Blood Pressure 198/67 151/56 O2 Sat by Pulse 100 100 Oximetry O2 Sat by Pulse Oximetry [ Assessment] 05/15/21 05/15/21 05/15/21 09:24 09:27 09:32 Temperature Pulse Rate 77 Pulse Rate [ Anterior Bilateral Throughout] Respiratory Rate Respiratory Rate [Anterior Bilateral Throughout] Blood Pressure 141/54 O2 Sat by Pulse 98 95 Oximetry O2 Sat by Pulse 95 Oximetry [ Assessment] 05/15/21 05/15/21 05/15/21 10:00 11:00 12:00 Temperature 98.2 F Pulse Rate 79 74 72 Pulse Rate [ Anterior Bilateral Throughout] Respiratory 25 H 16 18 Rate Respiratory Rate [Anterior Bilateral Throughout] Blood Pressure 141/54 132/59 132/59 O2 Sat by Pulse 99 Oximetry O2 Sat by Pulse Oximetry [ Assessment] 05/15/21 05/15/21 05/15/21 12:46 13:00 14:00 Temperature Pulse Rate 69 70 71 Pulse Rate [ Anterior Bilateral Throughout] Respiratory 21 17 Rate Respiratory Rate [Anterior Bilateral Throughout] Blood Pressure 121/51 121/51 121/51 O2 Sat by Pulse 99 99 99 Oximetry O2 Sat by Pulse Oximetry [ Assessment] 05/15/21 15:00 Temperature Pulse Rate 72 Pulse Rate [ Anterior Bilateral Throughout] Respiratory 17 Rate Respiratory Rate [Anterior Bilateral Throughout] Blood Pressure 132/45 O2 Sat by Pulse 100 Oximetry O2 Sat by Pulse Oximetry [ Assessment] Constitutional: no acute distress, other (elderly obese female with mildly increased respiratory effort at rest on t-piece) Eyes: non-icteric ENT: oropharynx moist, oropharyngeal exudate pre, other (+ midline tracheostomy without bleeding stoma) Neck: supple, no lymphadenopathy, no JVD, other (large circumference) Effort: mildly labored Ascultation: Bilateral: diminished breath sounds, rhonchi Percussion: Bilateral: not dull Cardiovascular: regular rate and rhythm, other (S1,S2) Gastrointestinal: normoactive bowel sounds, hypoactive bowel sounds, non-tender, non-distended (protuberant) Integumentary: normal Extremities: no cyanosis, no edema, pulses normal, no ischemia or petechiae Neurologic: non-focal exam (tracks voice), pupils equal and round, CN II-XII normal, motor strength normal and Psychiatric: other (falt affect) CBC and BMP: 05/15/21 05:51 05/15/21 05:51 ABG, PT/INR, D-dimer: ABG ABG pH 7.498 (7.320-7.450) H 05/12/21 10:31 POC ABG pCO2 35.2 mmHg (32.0-48.0) 05/12/21 10:31 POC ABG pO2 75.8 mmHg (83-108) L 05/12/21 10:31 POC ABG HCO3 26.7 05/12/21 10:31 ABG O2 Saturation 95.2 (0-100) 05/12/21 10:31 PT/INR, D-dimer PT 14.8 Sec. (12.2-14.9) 05/07/21 08:20 INR 1.11 (0.87-1.13) 05/07/21 08:20 Abnormal lab findings: Abnormal Labs 04/15/21 04/15/21 04/15/21 17:00 17:20 17:20 WBC 11.2 H RBC Hgb Hct 43.0 H MCV MCH RDW 15.3 H Plt Count Lymph % (Auto) 12.8 L Anderson % (Auto) Anderson # (Auto) Seg Neutrophils % 82.4 H Seg Neuts % (Manual) Lymphocytes % (Manual) Monocytes % (Manual) Seg Neutrophils # 9.3 H Seg Neutrophils # Man Lymphocytes # (Manual) Monocytes # (Manual) ABG pH POC ABG pCO2 POC ABG pO2 ABG Hemoglobin ABG Oxyhemoglobin ABG Sodium ABG Potassium ABG Chloride ABG Glucose Carboxyhemoglobin Sodium 129 L Potassium 7.1 H* Chloride 91.9 L BUN 35 H Creatinine 2.8 H Glucose POC Glucose 191 H Calcium Phosphorus Magnesium AST 69 H ALT Total Creatine Kinase CK-MB (CK-2) Troponin T Total Protein Albumin HDL Cholesterol TSH Free T3 Index Arterial Blood Glucose Arterial Blood Ionized Calcium Urine pH Urine WBC (Auto) Urine Creatinine Acetaminophen Crossmatch 04/15/21 04/15/21 04/15/21 17:20 17:20 17:20 WBC RBC Hgb Hct MCV MCH RDW Plt Count Lymph % (Auto) Anderson % (Auto) Anderson # (Auto) Seg Neutrophils % Seg Neuts % (Manual) Lymphocytes % (Manual) Monocytes % (Manual) Seg Neutrophils # Seg Neutrophils # Man Lymphocytes # (Manual) Monocytes # (Manual) ABG pH POC ABG pCO2 POC ABG pO2 ABG Hemoglobin ABG Oxyhemoglobin ABG Sodium ABG Potassium ABG Chloride ABG Glucose Carboxyhemoglobin Sodium Potassium Chloride BUN Creatinine Glucose POC Glucose Calcium Phosphorus Magnesium AST ALT Total Creatine Kinase 1000 H CK-MB (CK-2) Troponin T Total Protein Albumin HDL Cholesterol TSH 14.190 H Free T3 Index Arterial Blood Glucose Arterial Blood Ionized Calcium Urine pH Urine WBC (Auto) Urine Creatinine Acetaminophen 5.0 L Crossmatch 04/15/21 04/15/21 04/15/21 20:49 21:23 23:15 WBC RBC Hgb Hct MCV MCH RDW Plt Count Lymph % (Auto) Anderson % (Auto) Anderson # (Auto) Seg Neutrophils % Seg Neuts % (Manual) Lymphocytes % (Manual) Monocytes % (Manual) Seg Neutrophils # Seg Neutrophils # Man Lymphocytes # (Manual) Monocytes # (Manual) ABG pH 7.557 H POC ABG pCO2 30.0 L POC ABG pO2 493.3 H ABG Hemoglobin ABG Oxyhemoglobin 99.0 H ABG Sodium 131.5 L ABG Potassium 4.7 H ABG Chloride 94.0 L ABG Glucose 218 H Carboxyhemoglobin Sodium Potassium Chloride BUN Creatinine Glucose POC Glucose 173 H 207 H Calcium Phosphorus Magnesium AST ALT Total Creatine Kinase CK-MB (CK-2) Troponin T Total Protein Albumin HDL Cholesterol TSH Free T3 Index Arterial Blood Glucose 218 H Arterial Blood Ionized Calcium 5.4 H Urine pH Urine WBC (Auto) Urine Creatinine Acetaminophen Crossmatch 04/16/21 04/16/21 04/16/21 00:09 00:12 00:19 WBC RBC Hgb Hct MCV MCH RDW Plt Count Lymph % (Auto) Anderson % (Auto) Anderson # (Auto) Seg Neutrophils % Seg Neuts % (Manual) Lymphocytes % (Manual) Monocytes % (Manual) Seg Neutrophils # Seg Neutrophils # Man Lymphocytes # (Manual) Monocytes # (Manual) ABG pH POC ABG pCO2 POC ABG pO2 ABG Hemoglobin ABG Oxyhemoglobin ABG Sodium ABG Potassium ABG Chloride ABG Glucose Carboxyhemoglobin Sodium Potassium 6.7 H* Chloride BUN Creatinine Glucose POC Glucose Calcium Phosphorus Magnesium AST ALT Total Creatine Kinase CK-MB (CK-2) Troponin T Total Protein Albumin HDL Cholesterol TSH Free T3 Index Arterial Blood Glucose Arterial Blood Ionized Calcium Urine pH 9.0 H Urine WBC (Auto) Urine Creatinine 24.4 H Acetaminophen Crossmatch 04/16/21 04/16/21 04/16/21 03:43 03:55 05:02 WBC 21.2 H RBC Hgb Hct 43.4 H MCV 98 H MCH RDW Plt Count Lymph % (Auto) Anderson % (Auto) Anderson # (Auto) Seg Neutrophils % Seg Neuts % (Manual) 84.0 H Lymphocytes % (Manual) 2.0 L Monocytes % (Manual) 10.0 H Seg Neutrophils # Seg Neutrophils # Man 17.8 H Lymphocytes # (Manual) 0.4 L Monocytes # (Manual) 2.1 H ABG pH 7.461 H POC ABG pCO2 POC ABG pO2 ABG Hemoglobin ABG Oxyhemoglobin ABG Sodium 126.8 L ABG Potassium 5.4 H ABG Chloride 90.0 L ABG Glucose 325 H Carboxyhemoglobin Sodium Potassium Chloride BUN Creatinine Glucose POC Glucose 391 H Calcium Phosphorus Magnesium AST ALT Total Creatine Kinase CK-MB (CK-2) Troponin T Total Protein Albumin HDL Cholesterol TSH Free T3 Index Arterial Blood Glucose 325 H Arterial Blood Ionized Calcium Urine pH Urine WBC (Auto) Urine Creatinine Acetaminophen Crossmatch 04/16/21 04/16/21 04/16/21 05:02 11:34 16:09 WBC RBC Hgb Hct MCV MCH RDW Plt Count Lymph % (Auto) Anderson % (Auto) Anderson # (Auto) Seg Neutrophils % Seg Neuts % (Manual) Lymphocytes % (Manual) Monocytes % (Manual) Seg Neutrophils # Seg Neutrophils # Man Lymphocytes # (Manual) Monocytes # (Manual) ABG pH POC ABG pCO2 POC ABG pO2 ABG Hemoglobin ABG Oxyhemoglobin ABG Sodium ABG Potassium ABG Chloride ABG Glucose Carboxyhemoglobin Sodium 131 L Potassium 5.9 H Chloride 88.7 L BUN 34 H Creatinine 2.9 H Glucose 249 H POC Glucose 382 H 300 H Calcium 10.4 H Phosphorus Magnesium AST 65 H ALT Total Creatine Kinase CK-MB (CK-2) Troponin T Total Protein Albumin 3.8 L HDL Cholesterol TSH Free T3 Index Arterial Blood Glucose Arterial Blood Ionized Calcium Urine pH Urine WBC (Auto) Urine Creatinine Acetaminophen Crossmatch 04/16/21 04/16/21 04/16/21 18:15 19:01 19:01 WBC RBC Hgb Hct MCV MCH RDW Plt Count Lymph % (Auto) Anderson % (Auto) Anderson # (Auto) Seg Neutrophils % Seg Neuts % (Manual) Lymphocytes % (Manual) Monocytes % (Manual) Seg Neutrophils # Seg Neutrophils # Man Lymphocytes # (Manual) Monocytes # (Manual) ABG pH POC ABG pCO2 POC ABG pO2 ABG Hemoglobin ABG Oxyhemoglobin ABG Sodium ABG Potassium ABG Chloride ABG Glucose Carboxyhemoglobin Sodium 125 L Potassium 5.5 H Chloride 84.5 L BUN 37 H Creatinine 3.5 H Glucose 236 H POC Glucose 287 H Calcium Phosphorus Magnesium AST ALT Total Creatine Kinase CK-MB (CK-2) Troponin T Total Protein Albumin HDL Cholesterol TSH Free T3 Index 1.1 L Arterial Blood Glucose Arterial Blood Ionized Calcium Urine pH Urine WBC (Auto) Urine Creatinine Acetaminophen Crossmatch 04/16/21 04/16/21 04/17/21 19:01 23:48 03:09 WBC RBC Hgb Hct MCV MCH RDW Plt Count Lymph % (Auto) Anderson % (Auto) Anderson # (Auto) Seg Neutrophils % Seg Neuts % (Manual) Lymphocytes % (Manual) Monocytes % (Manual) Seg Neutrophils # Seg Neutrophils # Man Lymphocytes # (Manual) Monocytes # (Manual) ABG pH 7.518 H POC ABG pCO2 POC ABG pO2 ABG Hemoglobin ABG Oxyhemoglobin ABG Sodium 126.4 L ABG Potassium ABG Chloride 89.0 L ABG Glucose 200 H Carboxyhemoglobin Sodium Potassium 5.6 H Chloride BUN Creatinine Glucose POC Glucose 243 H Calcium Phosphorus Magnesium AST ALT Total Creatine Kinase CK-MB (CK-2) Troponin T Total Protein Albumin HDL Cholesterol TSH Free T3 Index Arterial Blood Glucose 200 H Arterial Blood Ionized Calcium 4.4 L Urine pH Urine WBC (Auto) Urine Creatinine Acetaminophen Crossmatch 04/17/21 04/17/21 04/17/21 05:04 06:14 11:55 WBC RBC Hgb Hct MCV MCH RDW Plt Count Lymph % (Auto) Anderson % (Auto) Anderson # (Auto) Seg Neutrophils % Seg Neuts % (Manual) Lymphocytes % (Manual) Monocytes % (Manual) Seg Neutrophils # Seg Neutrophils # Man Lymphocytes # (Manual) Monocytes # (Manual) ABG pH POC ABG pCO2 POC ABG pO2 ABG Hemoglobin ABG Oxyhemoglobin ABG Sodium ABG Potassium ABG Chloride ABG Glucose Carboxyhemoglobin Sodium 129 L Potassium Chloride 86.1 L BUN 39 H Creatinine 3.5 H Glucose 202 H POC Glucose 208 H 276 H Calcium Phosphorus Magnesium AST ALT Total Creatine Kinase 750 H CK-MB (CK-2) Troponin T 0.119 H* D Total Protein Albumin HDL Cholesterol 61 H TSH Free T3 Index Arterial Blood Glucose Arterial Blood Ionized Calcium Urine pH Urine WBC (Auto) Urine Creatinine Acetaminophen Crossmatch 04/17/21 04/17/21 04/17/21 15:35 15:35 17:07 WBC 17.1 H RBC Hgb Hct MCV MCH RDW Plt Count Lymph % (Auto) Anderson % (Auto) Anderson # (Auto) Seg Neutrophils % Seg Neuts % (Manual) Lymphocytes % (Manual) Monocytes % (Manual) Seg Neutrophils # Seg Neutrophils # Man Lymphocytes # (Manual) Monocytes # (Manual) ABG pH POC ABG pCO2 POC ABG pO2 ABG Hemoglobin ABG Oxyhemoglobin ABG Sodium ABG Potassium ABG Chloride ABG Glucose Carboxyhemoglobin Sodium Potassium Chloride BUN Creatinine Glucose POC Glucose 148 H Calcium Phosphorus Magnesium AST ALT Total Creatine Kinase 615 H CK-MB (CK-2) 9.1 H Troponin T Total Protein Albumin HDL Cholesterol TSH Free T3 Index Arterial Blood Glucose Arterial Blood Ionized Calcium Urine pH Urine WBC (Auto) Urine Creatinine Acetaminophen Crossmatch 04/18/21 04/18/21 04/18/21 00:01 03:00 05:24 WBC RBC Hgb Hct MCV MCH RDW Plt Count Lymph % (Auto) Anderson % (Auto) Anderson # (Auto) Seg Neutrophils % Seg Neuts % (Manual) Lymphocytes % (Manual) Monocytes % (Manual) Seg Neutrophils # Seg Neutrophils # Man Lymphocytes # (Manual) Monocytes # (Manual) ABG pH 7.497 H POC ABG pCO2 POC ABG pO2 77.7 L ABG Hemoglobin 10.4 L ABG Oxyhemoglobin ABG Sodium 129.7 L ABG Potassium 2.8 L ABG Chloride 92.0 L ABG Glucose 134 H Carboxyhemoglobin 0.3 L Sodium Potassium Chloride BUN Creatinine Glucose POC Glucose 192 H 162 H Calcium Phosphorus Magnesium AST ALT Total Creatine Kinase CK-MB (CK-2) Troponin T Total Protein Albumin HDL Cholesterol TSH Free T3 Index Arterial Blood Glucose 134 H Arterial Blood Ionized Calcium 4.3 L Urine pH Urine WBC (Auto) Urine Creatinine Acetaminophen Crossmatch 04/18/21 04/18/21 04/18/21 05:34 05:34 05:43 WBC 15.3 H RBC 3.34 L Hgb Hct MCV MCH RDW 15.3 H Plt Count Lymph % (Auto) Anderson % (Auto) Anderson # (Auto) Seg Neutrophils % Seg Neuts % (Manual) Lymphocytes % (Manual) Monocytes % (Manual) Seg Neutrophils # Seg Neutrophils # Man Lymphocytes # (Manual) Monocytes # (Manual) ABG pH POC ABG pCO2 POC ABG pO2 ABG Hemoglobin ABG Oxyhemoglobin ABG Sodium ABG Potassium ABG Chloride ABG Glucose Carboxyhemoglobin Sodium 134 L Potassium 3.0 L D Chloride 93.5 L BUN 42 H Creatinine 3.1 H Glucose 152 H POC Glucose Calcium Phosphorus Magnesium 1.40 L AST ALT Total Creatine Kinase 427 H CK-MB (CK-2) Troponin T 0.081 H D Total Protein Albumin HDL Cholesterol TSH Free T3 Index Arterial Blood Glucose Arterial Blood Ionized Calcium Urine pH Urine WBC (Auto) Urine Creatinine Acetaminophen Crossmatch 04/18/21 04/18/21 04/18/21 09:11 11:34 17:24 WBC RBC Hgb Hct MCV MCH RDW Plt Count Lymph % (Auto) Anderson % (Auto) Anderson # (Auto) Seg Neutrophils % Seg Neuts % (Manual) Lymphocytes % (Manual) Monocytes % (Manual) Seg Neutrophils # Seg Neutrophils # Man Lymphocytes # (Manual) Monocytes # (Manual) ABG pH POC ABG pCO2 POC ABG pO2 ABG Hemoglobin ABG Oxyhemoglobin ABG Sodium ABG Potassium ABG Chloride ABG Glucose Carboxyhemoglobin Sodium Potassium Chloride BUN Creatinine Glucose POC Glucose 170 H 151 H Calcium Phosphorus Magnesium AST ALT Total Creatine Kinase CK-MB (CK-2) Troponin T Total Protein Albumin HDL Cholesterol TSH Free T3 Index Arterial Blood Glucose Arterial Blood Ionized Calcium Urine pH Urine WBC (Auto) 34.0 H Urine Creatinine Acetaminophen Crossmatch 04/18/21 04/19/21 04/19/21 23:18 04:09 05:19 WBC RBC Hgb Hct MCV MCH RDW Plt Count Lymph % (Auto) Anderson % (Auto) Anderson # (Auto) Seg Neutrophils % Seg Neuts % (Manual) Lymphocytes % (Manual) Monocytes % (Manual) Seg Neutrophils # Seg Neutrophils # Man Lymphocytes # (Manual) Monocytes # (Manual) ABG pH 7.476 H POC ABG pCO2 POC ABG pO2 79.4 L ABG Hemoglobin 10.7 L ABG Oxyhemoglobin ABG Sodium 131.2 L ABG Potassium 2.8 L ABG Chloride 94.0 L ABG Glucose 209 H Carboxyhemoglobin 0.3 L Sodium Potassium Chloride BUN Creatinine Glucose POC Glucose 182 H 204 H Calcium Phosphorus Magnesium AST ALT Total Creatine Kinase CK-MB (CK-2) Troponin T Total Protein Albumin HDL Cholesterol TSH Free T3 Index Arterial Blood Glucose 209 H Arterial Blood Ionized Calcium Urine pH Urine WBC (Auto) Urine Creatinine Acetaminophen Crossmatch 04/19/21 04/19/21 04/19/21 07:30 07:30 10:35 WBC 14.8 H RBC 3.20 L Hgb Hct MCV 98 H MCH RDW Plt Count 137 L Lymph % (Auto) Anderson % (Auto) Anderson # (Auto) Seg Neutrophils % Seg Neuts % (Manual) Lymphocytes % (Manual) Monocytes % (Manual) Seg Neutrophils # Seg Neutrophils # Man Lymphocytes # (Manual) Monocytes # (Manual) ABG pH 7.464 H POC ABG pCO2 POC ABG pO2 81.8 L ABG Hemoglobin 10.8 L ABG Oxyhemoglobin ABG Sodium 129.6 L ABG Potassium ABG Chloride 95.0 L ABG Glucose 238 H Carboxyhemoglobin Sodium 133 L Potassium 2.8 L* Chloride 94.4 L BUN 43 H Creatinine 2.7 H Glucose 255 H POC Glucose Calcium 8.0 L Phosphorus Magnesium AST ALT Total Creatine Kinase CK-MB (CK-2) Troponin T 0.060 H D Total Protein Albumin HDL Cholesterol TSH Free T3 Index Arterial Blood Glucose 238 H Arterial Blood Ionized Calcium Urine pH Urine WBC (Auto) Urine Creatinine Acetaminophen Crossmatch 04/19/21 04/19/21 04/19/21 11:48 20:40 23:04 WBC RBC Hgb Hct MCV MCH RDW Plt Count Lymph % (Auto) Anderson % (Auto) Anderson # (Auto) Seg Neutrophils % Seg Neuts % (Manual) Lymphocytes % (Manual) Monocytes % (Manual) Seg Neutrophils # Seg Neutrophils # Man Lymphocytes # (Manual) Monocytes # (Manual) ABG pH POC ABG pCO2 POC ABG pO2 ABG Hemoglobin ABG Oxyhemoglobin ABG Sodium ABG Potassium ABG Chloride ABG Glucose Carboxyhemoglobin Sodium Potassium 3.4 L D Chloride BUN Creatinine Glucose POC Glucose 208 H 173 H Calcium Phosphorus Magnesium AST ALT Total Creatine Kinase CK-MB (CK-2) Troponin T Total Protein Albumin HDL Cholesterol TSH Free T3 Index Arterial Blood Glucose Arterial Blood Ionized Calcium Urine pH Urine WBC (Auto) Urine Creatinine Acetaminophen Crossmatch 04/20/21 04/20/21 04/20/21 02:56 03:32 03:32 WBC 13.2 H RBC 3.18 L Hgb Hct MCV MCH RDW Plt Count Lymph % (Auto) Anderson % (Auto) Anderson # (Auto) Seg Neutrophils % Seg Neuts % (Manual) Lymphocytes % (Manual) Monocytes % (Manual) Seg Neutrophils # Seg Neutrophils # Man Lymphocytes # (Manual) Monocytes # (Manual) ABG pH 7.526 H POC ABG pCO2 POC ABG pO2 ABG Hemoglobin 10.5 L ABG Oxyhemoglobin ABG Sodium 133.5 L ABG Potassium ABG Chloride ABG Glucose 157 H Carboxyhemoglobin 0.3 L Sodium 135 L Potassium Chloride 96.7 L BUN 40 H Creatinine 2.3 H Glucose 142 H POC Glucose Calcium Phosphorus Magnesium AST ALT Total Creatine Kinase CK-MB (CK-2) Troponin T 0.065 H Total Protein Albumin HDL Cholesterol TSH Free T3 Index Arterial Blood Glucose 157 H Arterial Blood Ionized Calcium Urine pH Urine WBC (Auto) Urine Creatinine Acetaminophen Crossmatch 04/20/21 04/20/21 04/20/21 03:46 05:42 11:50 WBC RBC Hgb Hct MCV MCH RDW Plt Count Lymph % (Auto) Anderson % (Auto) Anderson # (Auto) Seg Neutrophils % Seg Neuts % (Manual) Lymphocytes % (Manual) Monocytes % (Manual) Seg Neutrophils # Seg Neutrophils # Man Lymphocytes # (Manual) Monocytes # (Manual) ABG pH POC ABG pCO2 POC ABG pO2 ABG Hemoglobin ABG Oxyhemoglobin ABG Sodium ABG Potassium ABG Chloride ABG Glucose Carboxyhemoglobin Sodium Potassium Chloride BUN Creatinine Glucose POC Glucose 160 H 194 H Calcium Phosphorus 2.10 L Magnesium AST ALT Total Creatine Kinase CK-MB (CK-2) Troponin T Total Protein Albumin HDL Cholesterol TSH Free T3 Index Arterial Blood Glucose Arterial Blood Ionized Calcium Urine pH Urine WBC (Auto) Urine Creatinine Acetaminophen Crossmatch 04/20/21 04/20/21 04/21/21 17:09 23:18 05:26 WBC RBC Hgb Hct MCV MCH RDW Plt Count Lymph % (Auto) Anderson % (Auto) Anderson # (Auto) Seg Neutrophils % Seg Neuts % (Manual) Lymphocytes % (Manual) Monocytes % (Manual) Seg Neutrophils # Seg Neutrophils # Man Lymphocytes # (Manual) Monocytes # (Manual) ABG pH POC ABG pCO2 POC ABG pO2 ABG Hemoglobin ABG Oxyhemoglobin ABG Sodium ABG Potassium ABG Chloride ABG Glucose Carboxyhemoglobin Sodium Potassium Chloride BUN Creatinine Glucose POC Glucose 153 H 162 H 164 H Calcium Phosphorus Magnesium AST ALT Total Creatine Kinase CK-MB (CK-2) Troponin T Total Protein Albumin HDL Cholesterol TSH Free T3 Index Arterial Blood Glucose Arterial Blood Ionized Calcium Urine pH Urine WBC (Auto) Urine Creatinine Acetaminophen Crossmatch 04/21/21 04/21/21 04/21/21 05:51 05:51 12:12 WBC RBC 3.20 L Hgb Hct MCV 99 H MCH RDW 15.3 H Plt Count Lymph % (Auto) Anderson % (Auto) Anderson # (Auto) Seg Neutrophils % Seg Neuts % (Manual) Lymphocytes % (Manual) Monocytes % (Manual) Seg Neutrophils # Seg Neutrophils # Man Lymphocytes # (Manual) Monocytes # (Manual) ABG pH POC ABG pCO2 POC ABG pO2 ABG Hemoglobin ABG Oxyhemoglobin ABG Sodium ABG Potassium ABG Chloride ABG Glucose Carboxyhemoglobin Sodium Potassium Chloride 96.6 L BUN 42 H Creatinine 2.1 H Glucose 171 H POC Glucose 167 H Calcium Phosphorus Magnesium AST ALT Total Creatine Kinase CK-MB (CK-2) Troponin T Total Protein Albumin HDL Cholesterol TSH Free T3 Index Arterial Blood Glucose Arterial Blood Ionized Calcium Urine pH Urine WBC (Auto) Urine Creatinine Acetaminophen Crossmatch 04/21/21 04/21/21 04/22/21 17:13 23:42 05:29 WBC RBC Hgb Hct MCV MCH RDW Plt Count Lymph % (Auto) Anderson % (Auto) Anderson # (Auto) Seg Neutrophils % Seg Neuts % (Manual) Lymphocytes % (Manual) Monocytes % (Manual) Seg Neutrophils # Seg Neutrophils # Man Lymphocytes # (Manual) Monocytes # (Manual) ABG pH POC ABG pCO2 POC ABG pO2 ABG Hemoglobin ABG Oxyhemoglobin ABG Sodium ABG Potassium ABG Chloride ABG Glucose Carboxyhemoglobin Sodium Potassium Chloride BUN Creatinine Glucose POC Glucose 178 H 253 H 208 H Calcium Phosphorus Magnesium AST ALT Total Creatine Kinase CK-MB (CK-2) Troponin T Total Protein Albumin HDL Cholesterol TSH Free T3 Index Arterial Blood Glucose Arterial Blood Ionized Calcium Urine pH Urine WBC (Auto) Urine Creatinine Acetaminophen Crossmatch 04/22/21 04/22/21 04/22/21 08:00 08:00 12:06 WBC 12.9 H RBC Hgb Hct MCV MCH RDW Plt Count Lymph % (Auto) Anderson % (Auto) Anderson # (Auto) Seg Neutrophils % Seg Neuts % (Manual) Lymphocytes % (Manual) Monocytes % (Manual) Seg Neutrophils # Seg Neutrophils # Man Lymphocytes # (Manual) Monocytes # (Manual) ABG pH POC ABG pCO2 POC ABG pO2 ABG Hemoglobin ABG Oxyhemoglobin ABG Sodium ABG Potassium ABG Chloride ABG Glucose Carboxyhemoglobin Sodium Potassium Chloride BUN 47 H Creatinine 1.9 H Glucose 252 H POC Glucose 298 H Calcium Phosphorus Magnesium AST ALT Total Creatine Kinase CK-MB (CK-2) Troponin T Total Protein Albumin HDL Cholesterol TSH Free T3 Index Arterial Blood Glucose Arterial Blood Ionized Calcium Urine pH Urine WBC (Auto) Urine Creatinine Acetaminophen Crossmatch 04/22/21 04/22/21 04/23/21 17:34 23:01 05:08 WBC RBC Hgb Hct MCV MCH RDW Plt Count Lymph % (Auto) Anderson % (Auto) Anderson # (Auto) Seg Neutrophils % Seg Neuts % (Manual) Lymphocytes % (Manual) Monocytes % (Manual) Seg Neutrophils # Seg Neutrophils # Man Lymphocytes # (Manual) Monocytes # (Manual) ABG pH POC ABG pCO2 POC ABG pO2 ABG Hemoglobin ABG Oxyhemoglobin ABG Sodium ABG Potassium ABG Chloride ABG Glucose Carboxyhemoglobin Sodium Potassium Chloride BUN Creatinine Glucose POC Glucose 259 H 280 H 223 H Calcium Phosphorus Magnesium AST ALT Total Creatine Kinase CK-MB (CK-2) Troponin T Total Protein Albumin HDL Cholesterol TSH Free T3 Index Arterial Blood Glucose Arterial Blood Ionized Calcium Urine pH Urine WBC (Auto) Urine Creatinine Acetaminophen Crossmatch 04/23/21 04/23/21 04/23/21 07:02 11:57 17:33 WBC RBC Hgb Hct MCV MCH RDW Plt Count Lymph % (Auto) Anderson % (Auto) Anderson # (Auto) Seg Neutrophils % Seg Neuts % (Manual) Lymphocytes % (Manual) Monocytes % (Manual) Seg Neutrophils # Seg Neutrophils # Man Lymphocytes # (Manual) Monocytes # (Manual) ABG pH POC ABG pCO2 POC ABG pO2 ABG Hemoglobin ABG Oxyhemoglobin ABG Sodium ABG Potassium ABG Chloride ABG Glucose Carboxyhemoglobin Sodium Potassium Chloride 97.7 L BUN 57 H Creatinine 2.0 H Glucose 253 H POC Glucose 310 H 235 H Calcium Phosphorus Magnesium AST ALT Total Creatine Kinase CK-MB (CK-2) Troponin T Total Protein Albumin HDL Cholesterol TSH Free T3 Index Arterial Blood Glucose Arterial Blood Ionized Calcium Urine pH Urine WBC (Auto) Urine Creatinine Acetaminophen Crossmatch 04/23/21 04/24/21 04/24/21 23:15 05:23 05:46 WBC RBC Hgb Hct MCV MCH RDW Plt Count Lymph % (Auto) Anderson % (Auto) Anderson # (Auto) Seg Neutrophils % Seg Neuts % (Manual) Lymphocytes % (Manual) Monocytes % (Manual) Seg Neutrophils # Seg Neutrophils # Man Lymphocytes # (Manual) Monocytes # (Manual) ABG pH POC ABG pCO2 POC ABG pO2 ABG Hemoglobin ABG Oxyhemoglobin ABG Sodium ABG Potassium ABG Chloride ABG Glucose Carboxyhemoglobin Sodium Potassium 5.2 H D Chloride BUN 68 H Creatinine 2.3 H Glucose 277 H POC Glucose 197 H 274 H Calcium Phosphorus Magnesium AST ALT Total Creatine Kinase CK-MB (CK-2) Troponin T Total Protein Albumin HDL Cholesterol TSH Free T3 Index Arterial Blood Glucose Arterial Blood Ionized Calcium Urine pH Urine WBC (Auto) Urine Creatinine Acetaminophen Crossmatch 04/24/21 04/24/2104/24/21 11:33 11:52 17:49 WBC RBC Hgb Hct MCV MCH RDW Plt Count Lymph % (Auto) Anderson % (Auto) Anderson # (Auto) Seg Neutrophils % Seg Neuts % (Manual) Lymphocytes % (Manual) Monocytes % (Manual) Seg Neutrophils # Seg Neutrophils # Man Lymphocytes # (Manual) Monocytes # (Manual) ABG pH POC ABG pCO2 POC ABG pO2 72.7 L ABG Hemoglobin 11.6 L ABG Oxyhemoglobin 92.9 L ABG Sodium ABG Potassium ABG Chloride ABG Glucose 269 H Carboxyhemoglobin Sodium Potassium Chloride BUN Creatinine Glucose POC Glucose 223 H 252 H Calcium Phosphorus Magnesium AST ALT Total Creatine Kinase CK-MB (CK-2) Troponin T Total Protein Albumin HDL Cholesterol TSH Free T3 Index Arterial Blood Glucose 269 H Arterial Blood Ionized Calcium Urine pH Urine WBC (Auto) Urine Creatinine Acetaminophen Crossmatch 04/24/21 04/24/21 04/25/21 21:00 23:48 03:06 WBC RBC Hgb Hct MCV MCH RDW Plt Count Lymph % (Auto) Anderson % (Auto) Anderson # (Auto) Seg Neutrophils % Seg Neuts % (Manual) Lymphocytes % (Manual) Monocytes % (Manual) Seg Neutrophils # Seg Neutrophils # Man Lymphocytes # (Manual) Monocytes # (Manual) ABG pH 7.521 H 7.451 H POC ABG pCO2 POC ABG pO2 80.7 L 77.1 L ABG Hemoglobin 10.4 L 11.2 L ABG Oxyhemoglobin ABG Sodium ABG Potassium ABG Chloride ABG Glucose 186 H 165 H Carboxyhemoglobin 0 L Sodium Potassium Chloride BUN Creatinine Glucose POC Glucose 141 H Calcium Phosphorus Magnesium AST ALT Total Creatine Kinase CK-MB (CK-2) Troponin T Total Protein Albumin HDL Cholesterol TSH Free T3 Index Arterial Blood Glucose 186 H 165 H Arterial Blood Ionized Calcium Urine pH Urine WBC (Auto) Urine Creatinine Acetaminophen Crossmatch 04/25/21 04/25/21 04/25/21 03:56 03:56 06:03 WBC 12.3 H RBC 3.40 L Hgb Hct MCV MCH RDW Plt Count Lymph % (Auto) Anderson % (Auto) Anderson # (Auto) Seg Neutrophils % Seg Neuts % (Manual) Lymphocytes % (Manual) Monocytes % (Manual) Seg Neutrophils # Seg Neutrophils # Man Lymphocytes # (Manual) Monocytes # (Manual) ABG pH POC ABG pCO2 POC ABG pO2 ABG Hemoglobin ABG Oxyhemoglobin ABG Sodium ABG Potassium ABG Chloride ABG Glucose Carboxyhemoglobin Sodium Potassium Chloride BUN 78 H Creatinine 2.5 H Glucose 152 H POC Glucose 171 H Calcium Phosphorus Magnesium AST ALT Total Creatine Kinase CK-MB (CK-2) Troponin T Total Protein Albumin HDL Cholesterol TSH Free T3 Index Arterial Blood Glucose Arterial Blood Ionized Calcium Urine pH Urine WBC (Auto) Urine Creatinine Acetaminophen Crossmatch 04/25/21 04/25/21 04/26/21 11:43 15:37 00:05 WBC RBC Hgb Hct MCV MCH RDW Plt Count Lymph % (Auto) Anderson % (Auto) Anderson # (Auto) Seg Neutrophils % Seg Neuts % (Manual) Lymphocytes % (Manual) Monocytes % (Manual) Seg Neutrophils # Seg Neutrophils # Man Lymphocytes # (Manual) Monocytes # (Manual) ABG pH POC ABG pCO2 POC ABG pO2 ABG Hemoglobin ABG Oxyhemoglobin ABG Sodium ABG Potassium ABG Chloride ABG Glucose Carboxyhemoglobin Sodium Potassium Chloride BUN Creatinine Glucose POC Glucose 181 H 167 H 144 H Calcium Phosphorus Magnesium AST ALT Total Creatine Kinase CK-MB (CK-2) Troponin T Total Protein Albumin HDL Cholesterol TSH Free T3 Index Arterial Blood Glucose Arterial Blood Ionized Calcium Urine pH Urine WBC (Auto) Urine Creatinine Acetaminophen Crossmatch 04/26/21 04/26/21 04/26/21 04:30 05:44 09:30 WBC RBC Hgb Hct MCV MCH RDW Plt Count Lymph % (Auto) Anderson % (Auto) Anderson # (Auto) Seg Neutrophils % Seg Neuts % (Manual) Lymphocytes % (Manual) Monocytes % (Manual) Seg Neutrophils # Seg Neutrophils # Man Lymphocytes # (Manual) Monocytes # (Manual) ABG pH 7.529 H POC ABG pCO2 POC ABG pO2 66.1 L ABG Hemoglobin 11.2 L ABG Oxyhemoglobin 92.8 L ABG Sodium ABG Potassium ABG Chloride ABG Glucose 216 H Carboxyhemoglobin 0.3 L Sodium Potassium Chloride BUN 82 H Creatinine 2.7 H Glucose 238 H POC Glucose 202 H Calcium Phosphorus Magnesium AST ALT Total Creatine Kinase CK-MB (CK-2) Troponin T Total Protein Albumin HDL Cholesterol TSH Free T3 Index Arterial Blood Glucose 216 H Arterial Blood Ionized Calcium Urine pH Urine WBC (Auto) Urine Creatinine Acetaminophen Crossmatch 04/26/21 04/26/21 04/26/21 09:30 11:32 17:21 WBC 24.7 H RBC 3.32 L Hgb Hct MCV MCH RDW Plt Count Lymph % (Auto) Anderson % (Auto) Anderson # (Auto) Seg Neutrophils % Seg Neuts % (Manual) Lymphocytes % (Manual) Monocytes % (Manual) Seg Neutrophils # Seg Neutrophils # Man Lymphocytes # (Manual) Monocytes # (Manual) ABG pH POC ABG pCO2 POC ABG pO2 ABG Hemoglobin ABG Oxyhemoglobin ABG Sodium ABG Potassium ABG Chloride ABG Glucose Carboxyhemoglobin Sodium Potassium Chloride BUN Creatinine Glucose POC Glucose 245 H 264 H Calcium Phosphorus Magnesium AST ALT Total Creatine Kinase CK-MB (CK-2) Troponin T Total Protein Albumin HDL Cholesterol TSH Free T3 Index Arterial Blood Glucose Arterial Blood Ionized Calcium Urine pH Urine WBC (Auto) Urine Creatinine Acetaminophen Crossmatch 04/26/21 04/27/21 04/27/21 23:18 04:23 04:54 WBC RBC Hgb Hct MCV MCH RDW Plt Count Lymph % (Auto) Anderson % (Auto) Anderson # (Auto) Seg Neutrophils % Seg Neuts % (Manual) Lymphocytes % (Manual) Monocytes % (Manual) Seg Neutrophils # Seg Neutrophils # Man Lymphocytes # (Manual) Monocytes # (Manual) ABG pH 7.549 H POC ABG pCO2 30.0 L POC ABG pO2 64.9 L ABG Hemoglobin 11 L ABG Oxyhemoglobin 93.3 L ABG Sodium ABG Potassium ABG Chloride ABG Glucose 325 H Carboxyhemoglobin 0.3 L Sodium Potassium Chloride BUN Creatinine Glucose POC Glucose 201 H 298 H Calcium Phosphorus Magnesium AST ALT Total Creatine Kinase CK-MB (CK-2) Troponin T Total Protein Albumin HDL Cholesterol TSH Free T3 Index Arterial Blood Glucose 325 H Arterial Blood Ionized Calcium Urine pH Urine WBC (Auto) Urine Creatinine Acetaminophen Crossmatch 04/27/21 04/27/21 04/27/21 07:52 07:52 11:22 WBC 23.0 H RBC 3.32 L Hgb Hct MCV MCH RDW 15.5 H Plt Count Lymph % (Auto) Anderson % (Auto) Anderson # (Auto) Seg Neutrophils % Seg Neuts % (Manual) Lymphocytes % (Manual) Monocytes % (Manual) Seg Neutrophils # Seg Neutrophils # Man Lymphocytes # (Manual) Monocytes # (Manual) ABG pH POC ABG pCO2 POC ABG pO2 ABG Hemoglobin ABG Oxyhemoglobin ABG Sodium ABG Potassium ABG Chloride ABG Glucose Carboxyhemoglobin Sodium Potassium 3.5 L Chloride BUN 90 H Creatinine 2.8 H Glucose 286 H POC Glucose 251 H Calcium Phosphorus Magnesium AST ALT Total Creatine Kinase CK-MB (CK-2) Troponin T Total Protein Albumin HDL Cholesterol TSH Free T3 Index Arterial Blood Glucose Arterial Blood Ionized Calcium Urine pH Urine WBC (Auto) Urine Creatinine Acetaminophen Crossmatch 04/27/21 04/27/21 04/27/21 17:21 17:45 23:05 WBC RBC Hgb Hct MCV MCH RDW Plt Count Lymph % (Auto) Anderson % (Auto) Anderson # (Auto) Seg Neutrophils % Seg Neuts % (Manual) Lymphocytes % (Manual) Monocytes % (Manual) Seg Neutrophils # Seg Neutrophils # Man Lymphocytes # (Manual) Monocytes # (Manual) ABG pH POC ABG pCO2 POC ABG pO2 ABG Hemoglobin ABG Oxyhemoglobin ABG Sodium ABG Potassium ABG Chloride ABG Glucose Carboxyhemoglobin Sodium Potassium Chloride BUN Creatinine Glucose POC Glucose 180 H 178 H 189 H Calcium Phosphorus Magnesium AST ALT Total Creatine Kinase CK-MB (CK-2) Troponin T Total Protein Albumin HDL Cholesterol TSH Free T3 Index Arterial Blood Glucose Arterial Blood Ionized Calcium Urine pH Urine WBC (Auto) Urine Creatinine Acetaminophen Crossmatch 04/28/21 04/28/21 04/28/21 03:14 04:13 04:13 WBC 17.6 H RBC 3.03 L Hgb 9.7 L Hct 29.5 L MCV MCH RDW Plt Count Lymph % (Auto) Anderson % (Auto) Anderson # (Auto) Seg Neutrophils % Seg Neuts % (Manual) Lymphocytes % (Manual) Monocytes % (Manual) Seg Neutrophils # Seg Neutrophils # Man Lymphocytes # (Manual) Monocytes # (Manual) ABG pH 7.507 H POC ABG pCO2 POC ABG pO2 62.0 L ABG Hemoglobin 10.2 L ABG Oxyhemoglobin 91.9 L ABG Sodium ABG Potassium ABG Chloride ABG Glucose 337 H Carboxyhemoglobin 0.2 L Sodium Potassium Chloride BUN 101 H Creatinine 3.1 H Glucose 304 H POC Glucose Calcium Phosphorus Magnesium AST 61 H ALT 64 H Total Creatine Kinase CK-MB (CK-2) Troponin T Total Protein 6.2 L Albumin 2.6 L HDL Cholesterol TSH Free T3 Index Arterial Blood Glucose 337 H Arterial Blood Ionized Calcium Urine pH Urine WBC (Auto) Urine Creatinine Acetaminophen Crossmatch 04/28/21 04/28/21 04/28/21 05:01 11:28 18:23 WBC RBC Hgb Hct MCV MCH RDW Plt Count Lymph % (Auto) Anderson % (Auto) Anderson # (Auto) Seg Neutrophils % Seg Neuts % (Manual) Lymphocytes % (Manual) Monocytes % (Manual) Seg Neutrophils # Seg Neutrophils # Man Lymphocytes # (Manual) Monocytes # (Manual) ABG pH POC ABG pCO2 POC ABG pO2 ABG Hemoglobin ABG Oxyhemoglobin ABG Sodium ABG Potassium ABG Chloride ABG Glucose Carboxyhemoglobin Sodium Potassium Chloride BUN Creatinine Glucose POC Glucose 282 H 263 H 200 H Calcium Phosphorus Magnesium AST ALT Total Creatine Kinase CK-MB (CK-2) Troponin T Total Protein Albumin HDL Cholesterol TSH Free T3 Index Arterial Blood Glucose Arterial Blood Ionized Calcium Urine pH Urine WBC (Auto) Urine Creatinine Acetaminophen Crossmatch 04/28/21 04/29/21 04/29/21 23:49 03:24 04:22 WBC RBC Hgb Hct MCV MCH RDW Plt Count Lymph % (Auto) Anderson % (Auto) Anderson # (Auto) Seg Neutrophils % Seg Neuts % (Manual) Lymphocytes % (Manual) Monocytes % (Manual) Seg Neutrophils # Seg Neutrophils # Man Lymphocytes # (Manual) Monocytes # (Manual) ABG pH 7.546 H POC ABG pCO2 POC ABG pO2 52.4 L ABG Hemoglobin 10.5 L ABG Oxyhemoglobin 88.3 L ABG Sodium ABG Potassium ABG Chloride ABG Glucose 217 H Carboxyhemoglobin 0.4 L Sodium 148 H Potassium Chloride BUN 110 H Creatinine 3.1 H Glucose 208 H POC Glucose 238 H Calcium Phosphorus Magnesium AST ALT Total Creatine Kinase CK-MB (CK-2) Troponin T Total Protein Albumin HDL Cholesterol TSH Free T3 Index Arterial Blood Glucose 217 H Arterial Blood Ionized Calcium Urine pH Urine WBC (Auto) Urine Creatinine Acetaminophen Crossmatch 04/29/21 04/29/21 04/29/21 04:22 05:08 11:26 WBC 15.2 H RBC 3.30 L Hgb 9.8 L Hct MCV MCH RDW Plt Count Lymph % (Auto) Anderson % (Auto) Anderson # (Auto) Seg Neutrophils % Seg Neuts % (Manual) Lymphocytes % (Manual) Monocytes % (Manual) Seg Neutrophils # Seg Neutrophils # Man Lymphocytes # (Manual) Monocytes # (Manual) ABG pH POC ABG pCO2 POC ABG pO2 ABG Hemoglobin ABG Oxyhemoglobin ABG Sodium ABG Potassium ABG Chloride ABG Glucose Carboxyhemoglobin Sodium Potassium Chloride BUN Creatinine Glucose POC Glucose 181 H 218 H Calcium Phosphorus Magnesium AST ALT Total Creatine Kinase CK-MB (CK-2) Troponin T Total Protein Albumin HDL Cholesterol TSH Free T3 Index Arterial Blood Glucose Arterial Blood Ionized Calcium Urine pH Urine WBC (Auto) Urine Creatinine Acetaminophen Crossmatch 04/29/21 04/29/21 04/30/21 17:06 23:06 03:58 WBC RBC Hgb Hct MCV MCH RDW Plt Count Lymph % (Auto) Anderson % (Auto) Anderson # (Auto) Seg Neutrophils % Seg Neuts % (Manual) Lymphocytes % (Manual) Monocytes % (Manual) Seg Neutrophils # Seg Neutrophils # Man Lymphocytes # (Manual) Monocytes # (Manual) ABG pH 7.547 H POC ABG pCO2 31.3 L POC ABG pO2 58.4 L ABG Hemoglobin 9.6 L ABG Oxyhemoglobin 91.1 L ABG Sodium ABG Potassium ABG Chloride 108.0 H ABG Glucose 248 H Carboxyhemoglobin 0.2 L Sodium Potassium Chloride BUN Creatinine Glucose POC Glucose 223 H 252 H Calcium Phosphorus Magnesium AST ALT Total Creatine Kinase CK-MB (CK-2) Troponin T Total Protein Albumin HDL Cholesterol TSH Free T3 Index Arterial Blood Glucose 248 H Arterial Blood Ionized Calcium Urine pH Urine WBC (Auto) Urine Creatinine Acetaminophen Crossmatch 04/30/21 04/30/21 04/30/21 05:23 05:54 11:47 WBC RBC Hgb Hct MCV MCH RDW Plt Count Lymph % (Auto) Anderson % (Auto) Anderson # (Auto) Seg Neutrophils % Seg Neuts % (Manual) Lymphocytes % (Manual) Monocytes % (Manual) Seg Neutrophils # Seg Neutrophils # Man Lymphocytes # (Manual) Monocytes # (Manual) ABG pH POC ABG pCO2 POC ABG pO2 ABG Hemoglobin ABG Oxyhemoglobin ABG Sodium ABG Potassium ABG Chloride ABG Glucose Carboxyhemoglobin Sodium Potassium Chloride BUN 118 H Creatinine 3.3 H Glucose 263 H POC Glucose 244 H 237 H Calcium Phosphorus Magnesium AST ALT Total Creatine Kinase CK-MB (CK-2) Troponin T Total Protein Albumin HDL Cholesterol TSH Free T3 Index Arterial Blood Glucose Arterial Blood Ionized Calcium Urine pH Urine WBC (Auto) Urine Creatinine Acetaminophen Crossmatch 04/30/21 04/30/21 04/30/21 17:26 17:45 23:51 WBC RBC Hgb Hct MCV MCH RDW Plt Count Lymph % (Auto) Anderson % (Auto) Anderson # (Auto) Seg Neutrophils % Seg Neuts % (Manual) Lymphocytes % (Manual) Monocytes % (Manual) Seg Neutrophils # Seg Neutrophils # Man Lymphocytes # (Manual) Monocytes # (Manual) ABG pH POC ABG pCO2 POC ABG pO2 ABG Hemoglobin ABG Oxyhemoglobin ABG Sodium ABG Potassium ABG Chloride ABG Glucose Carboxyhemoglobin Sodium Potassium Chloride BUN Creatinine Glucose POC Glucose 193 H 197 H Calcium Phosphorus Magnesium AST ALT Total Creatine Kinase CK-MB (CK-2) Troponin T Total Protein Albumin HDL Cholesterol TSH Free T3 Index Arterial Blood Glucose Arterial Blood Ionized Calcium Urine pH Urine WBC (Auto) 48.0 H Urine Creatinine Acetaminophen Crossmatch 05/01/21 05/01/21 05/01/21 04:02 04:57 07:11 WBC 12.3 H RBC 2.83 L Hgb 8.8 L Hct 27.3 L MCV MCH RDW Plt Count Lymph % (Auto) Anderson % (Auto) Anderson # (Auto) Seg Neutrophils % Seg Neuts % (Manual) 80.0 H Lymphocytes % (Manual) 5.0 L Monocytes % (Manual) Seg Neutrophils # Seg Neutrophils # Man 9.8 H Lymphocytes # (Manual) 0.6 L Monocytes # (Manual) ABG pH 7.466 H POC ABG pCO2 POC ABG pO2 61.4 L ABG Hemoglobin 9.0 L ABG Oxyhemoglobin 91.1 L ABG Sodium ABG Potassium ABG Chloride 110.0 H ABG Glucose 245 H Carboxyhemoglobin Sodium Potassium Chloride BUN Creatinine Glucose POC Glucose 193 H Calcium Phosphorus Magnesium AST ALT Total Creatine Kinase CK-MB (CK-2) Troponin T Total Protein Albumin HDL Cholesterol TSH Free T3 Index Arterial Blood Glucose 245 H Arterial Blood Ionized Calcium Urine pH Urine WBC (Auto) Urine Creatinine Acetaminophen Crossmatch 05/01/21 05/01/21 05/01/21 07:11 07:45 11:30 WBC RBC Hgb Hct MCV MCH RDW Plt Count Lymph % (Auto) Anderson % (Auto) Anderson # (Auto) Seg Neutrophils % Seg Neuts % (Manual) Lymphocytes % (Manual) Monocytes % (Manual) Seg Neutrophils # Seg Neutrophils # Man Lymphocytes # (Manual) Monocytes # (Manual) ABG pH POC ABG pCO2 POC ABG pO2 ABG Hemoglobin ABG Oxyhemoglobin ABG Sodium ABG Potassium ABG Chloride ABG Glucose Carboxyhemoglobin Sodium 146 H Potassium Chloride 108.4 H BUN 122 H Creatinine 3.4 H Glucose 235 H POC Glucose 212 H 247 H Calcium Phosphorus Magnesium AST ALT Total Creatine Kinase CK-MB (CK-2) Troponin T Total Protein Albumin HDL Cholesterol TSH Free T3 Index Arterial Blood Glucose Arterial Blood Ionized Calcium Urine pH Urine WBC (Auto) Urine Creatinine Acetaminophen Crossmatch 05/01/21 05/01/21 05/01/21 11:31 17:42 23:49 WBC RBC Hgb Hct MCV MCH RDW Plt Count Lymph % (Auto) Anderson % (Auto) Anderson # (Auto) Seg Neutrophils % Seg Neuts % (Manual) Lymphocytes % (Manual) Monocytes % (Manual) Seg Neutrophils # Seg Neutrophils # Man Lymphocytes # (Manual) Monocytes # (Manual) ABG pH POC ABG pCO2 POC ABG pO2 ABG Hemoglobin ABG Oxyhemoglobin ABG Sodium ABG Potassium ABG Chloride ABG Glucose Carboxyhemoglobin Sodium Potassium Chloride BUN Creatinine Glucose POC Glucose 258 H 171 H 167 H Calcium Phosphorus Magnesium AST ALT Total Creatine Kinase CK-MB (CK-2) Troponin T Total Protein Albumin HDL Cholesterol TSH Free T3 Index Arterial Blood Glucose Arterial Blood Ionized Calcium Urine pH Urine WBC (Auto) Urine Creatinine Acetaminophen Crossmatch 05/02/21 05/02/21 05/02/21 05:12 08:34 11:53 WBC RBC Hgb Hct MCV MCH RDW Plt Count Lymph % (Auto) Anderson % (Auto) Anderson # (Auto) Seg Neutrophils % Seg Neuts % (Manual) Lymphocytes % (Manual) Monocytes % (Manual) Seg Neutrophils # Seg Neutrophils # Man Lymphocytes # (Manual) Monocytes # (Manual) ABG pH POC ABG pCO2 POC ABG pO2 ABG Hemoglobin ABG Oxyhemoglobin ABG Sodium ABG Potassium ABG Chloride ABG Glucose Carboxyhemoglobin Sodium 148 H Potassium Chloride 110.4 H BUN 124 H Creatinine 3.4 H Glucose 208 H POC Glucose 163 H 185 H Calcium 8.3 L Phosphorus Magnesium AST ALT Total Creatine Kinase CK-MB (CK-2) Troponin T Total Protein Albumin HDL Cholesterol TSH Free T3 Index Arterial Blood Glucose Arterial Blood Ionized Calcium Urine pH Urine WBC (Auto) Urine Creatinine Acetaminophen Crossmatch 05/02/21 05/02/21 05/03/21 17:28 23:32 03:57 WBC RBC Hgb Hct MCV MCH RDW Plt Count Lymph % (Auto) Anderson % (Auto) Anderson # (Auto) Seg Neutrophils % Seg Neuts % (Manual) Lymphocytes % (Manual) Monocytes % (Manual) Seg Neutrophils # Seg Neutrophils # Man Lymphocytes # (Manual) Monocytes # (Manual) ABG pH 7.531 H POC ABG pCO2 31.0 L POC ABG pO2 64.3 L ABG Hemoglobin 9.0 L ABG Oxyhemoglobin 92.6 L ABG Sodium 145.7 H ABG Potassium ABG Chloride 112.0 H ABG Glucose 202 H Carboxyhemoglobin Sodium Potassium Chloride BUN Creatinine Glucose POC Glucose 147 H 202 H Calcium Phosphorus Magnesium AST ALT Total Creatine Kinase CK-MB (CK-2) Troponin T Total Protein Albumin HDL Cholesterol TSH Free T3 Index Arterial Blood Glucose 202 H Arterial Blood Ionized Calcium Urine pH Urine WBC (Auto) Urine Creatinine Acetaminophen Crossmatch 05/03/21 05/03/21 05/03/21 05:14 05:44 11:10 WBC RBC Hgb Hct MCV MCH RDW Plt Count Lymph % (Auto) Anderson % (Auto) Anderson # (Auto) Seg Neutrophils % Seg Neuts % (Manual) Lymphocytes % (Manual) Monocytes % (Manual) Seg Neutrophils # Seg Neutrophils # Man Lymphocytes # (Manual) Monocytes # (Manual) ABG pH POC ABG pCO2 POC ABG pO2 ABG Hemoglobin ABG Oxyhemoglobin ABG Sodium ABG Potassium ABG Chloride ABG Glucose Carboxyhemoglobin Sodium 147 H Potassium Chloride 109.7 H BUN 121 H Creatinine 3.1 H Glucose 190 H POC Glucose 175 H 202 H Calcium Phosphorus Magnesium AST ALT Total Creatine Kinase CK-MB (CK-2) Troponin T Total Protein Albumin HDL Cholesterol TSH Free T3 Index Arterial Blood Glucose Arterial Blood Ionized Calcium Urine pH Urine WBC (Auto) Urine Creatinine Acetaminophen Crossmatch 05/03/21 05/04/21 05/04/21 23:58 04:57 04:57 WBC RBC 2.61 L Hgb 8.2 L Hct 25.4 L MCV 98 H MCH RDW 15.3 H Plt Count Lymph % (Auto) Anderson % (Auto) Anderson # (Auto) Seg Neutrophils % Seg Neuts % (Manual) Lymphocytes % (Manual) Monocytes % (Manual) Seg Neutrophils # Seg Neutrophils # Man Lymphocytes # (Manual) Monocytes # (Manual) ABG pH POC ABG pCO2 POC ABG pO2 ABG Hemoglobin ABG Oxyhemoglobin ABG Sodium ABG Potassium ABG Chloride ABG Glucose Carboxyhemoglobin Sodium 147 H Potassium Chloride 111.0 H BUN 104 H Creatinine 2.8 H Glucose 179 H POC Glucose 131 H Calcium Phosphorus Magnesium AST ALT Total Creatine Kinase CK-MB (CK-2) Troponin T Total Protein Albumin HDL Cholesterol TSH Free T3 Index Arterial Blood Glucose Arterial Blood Ionized Calcium Urine pH Urine WBC (Auto) Urine Creatinine Acetaminophen Crossmatch 05/04/21 05/04/21 05/04/21 05:19 11:28 17:02 WBC RBC Hgb Hct MCV MCH RDW Plt Count Lymph % (Auto) Anderson % (Auto) Anderson # (Auto) Seg Neutrophils % Seg Neuts % (Manual) Lymphocytes % (Manual) Monocytes % (Manual) Seg Neutrophils # Seg Neutrophils # Man Lymphocytes # (Manual) Monocytes # (Manual) ABG pH POC ABG pCO2 POC ABG pO2 ABG Hemoglobin ABG Oxyhemoglobin ABG Sodium ABG Potassium ABG Chloride ABG Glucose Carboxyhemoglobin Sodium Potassium Chloride BUN Creatinine Glucose POC Glucose 168 H 206 H 213 H Calcium Phosphorus Magnesium AST ALT Total Creatine Kinase CK-MB (CK-2) Troponin T Total Protein Albumin HDL Cholesterol TSH Free T3 Index Arterial Blood Glucose Arterial Blood Ionized Calcium Urine pH Urine WBC (Auto) Urine Creatinine Acetaminophen Crossmatch 05/04/21 05/05/21 05/05/21 23:13 04:55 05:15 WBC RBC Hgb Hct MCV MCH RDW Plt Count Lymph % (Auto) Anderson % (Auto) Anderson # (Auto) Seg Neutrophils % Seg Neuts % (Manual) Lymphocytes % (Manual) Monocytes % (Manual) Seg Neutrophils # Seg Neutrophils # Man Lymphocytes # (Manual) Monocytes # (Manual) ABG pH POC ABG pCO2 POC ABG pO2 ABG Hemoglobin ABG Oxyhemoglobin ABG Sodium ABG Potassium ABG Chloride ABG Glucose Carboxyhemoglobin Sodium Potassium Chloride BUN 91 H Creatinine 2.4 H Glucose 255 H POC Glucose 232 H 235 H Calcium Phosphorus Magnesium AST ALT Total Creatine Kinase CK-MB (CK-2) Troponin T Total Protein Albumin HDL Cholesterol TSH Free T3 Index Arterial Blood Glucose Arterial Blood Ionized Calcium Urine pH Urine WBC (Auto) Urine Creatinine Acetaminophen Crossmatch 05/05/21 05/05/21 05/05/21 11:41 17:46 23:40 WBC RBC Hgb Hct MCV MCH RDW Plt Count Lymph % (Auto) Anderson % (Auto) Anderson # (Auto) Seg Neutrophils % Seg Neuts % (Manual) Lymphocytes % (Manual) Monocytes % (Manual) Seg Neutrophils # Seg Neutrophils # Man Lymphocytes # (Manual) Monocytes # (Manual) ABG pH POC ABG pCO2 POC ABG pO2 ABG Hemoglobin ABG Oxyhemoglobin ABG Sodium ABG Potassium ABG Chloride ABG Glucose Carboxyhemoglobin Sodium Potassium Chloride BUN Creatinine Glucose POC Glucose 199 H 231 H 224 H Calcium Phosphorus Magnesium AST ALT Total Creatine Kinase CK-MB (CK-2) Troponin T Total Protein Albumin HDL Cholesterol TSH Free T3 Index Arterial Blood Glucose Arterial Blood Ionized Calcium Urine pH Urine WBC (Auto) Urine Creatinine Acetaminophen Crossmatch 05/06/21 05/06/21 05/06/21 04:00 05:37 07:12 WBC RBC Hgb Hct MCV MCH RDW Plt Count Lymph % (Auto) Anderson % (Auto) Anderson # (Auto) Seg Neutrophils % Seg Neuts % (Manual) Lymphocytes % (Manual) Monocytes % (Manual) Seg Neutrophils # Seg Neutrophils # Man Lymphocytes # (Manual) Monocytes # (Manual) ABG pH 7.464 H POC ABG pCO2 POC ABG pO2 74.2 L ABG Hemoglobin 10.5 L ABG Oxyhemoglobin ABG Sodium ABG Potassium ABG Chloride 110.0 H ABG Glucose 214 H Carboxyhemoglobin 0.4 L Sodium 146 H Potassium Chloride 110.4 H BUN 82 H Creatinine 2.3 H Glucose 154 H POC Glucose 165 H Calcium Phosphorus Magnesium AST ALT Total Creatine Kinase CK-MB (CK-2) Troponin T Total Protein Albumin HDL Cholesterol TSH Free T3 Index Arterial Blood Glucose 214 H Arterial Blood Ionized Calcium Urine pH Urine WBC (Auto) Urine Creatinine Acetaminophen Crossmatch 05/06/21 05/06/21 05/07/21 17:11 23:40 05:26 WBC RBC Hgb Hct MCV MCH RDW Plt Count Lymph % (Auto) Anderson % (Auto) Anderson # (Auto) Seg Neutrophils % Seg Neuts % (Manual) Lymphocytes % (Manual) Monocytes % (Manual) Seg Neutrophils # Seg Neutrophils # Man Lymphocytes # (Manual) Monocytes # (Manual) ABG pH POC ABG pCO2 POC ABG pO2 ABG Hemoglobin ABG Oxyhemoglobin ABG Sodium ABG Potassium ABG Chloride ABG Glucose Carboxyhemoglobin Sodium Potassium Chloride BUN Creatinine Glucose POC Glucose 126 H 165 H 156 H Calcium Phosphorus Magnesium AST ALT Total Creatine Kinase CK-MB (CK-2) Troponin T Total Protein Albumin HDL Cholesterol TSH Free T3 Index Arterial Blood Glucose Arterial Blood Ionized Calcium Urine pH Urine WBC (Auto) Urine Creatinine Acetaminophen Crossmatch 05/07/21 05/07/21 05/07/21 08:20 08:20 11:35 WBC RBC 2.58 L Hgb 7.9 L Hct 24.9 L MCV MCH RDW Plt Count Lymph % (Auto) Anderson % (Auto) Anderson # (Auto) Seg Neutrophils % Seg Neuts % (Manual) Lymphocytes % (Manual) Monocytes % (Manual) Seg Neutrophils # Seg Neutrophils # Man Lymphocytes # (Manual) Monocytes # (Manual) ABG pH POC ABG pCO2 POC ABG pO2 ABG Hemoglobin ABG Oxyhemoglobin ABG Sodium ABG Potassium ABG Chloride ABG Glucose Carboxyhemoglobin Sodium Potassium Chloride 108.4 H BUN 81 H Creatinine 2.4 H Glucose 133 H POC Glucose 112 H Calcium Phosphorus Magnesium AST ALT Total Creatine Kinase CK-MB (CK-2) Troponin T Total Protein Albumin HDL Cholesterol TSH Free T3 Index Arterial Blood Glucose Arterial Blood Ionized Calcium Urine pH Urine WBC (Auto) Urine Creatinine Acetaminophen Crossmatch 05/07/21 05/07/21 05/08/21 17:51 23:27 03:05 WBC RBC Hgb Hct MCV MCH RDW Plt Count Lymph % (Auto) Anderson % (Auto) Anderson # (Auto) Seg Neutrophils % Seg Neuts % (Manual) Lymphocytes % (Manual) Monocytes % (Manual) Seg Neutrophils # Seg Neutrophils # Man Lymphocytes # (Manual) Monocytes # (Manual) ABG pH 7.454 H POC ABG pCO2 POC ABG pO2 82.1 L ABG Hemoglobin 8.1 L ABG Oxyhemoglobin ABG Sodium ABG Potassium 4.8 H ABG Chloride 111.0 H ABG Glucose 194 H Carboxyhemoglobin Sodium Potassium Chloride BUN Creatinine Glucose POC Glucose 136 H 133 H Calcium Phosphorus Magnesium AST ALT Total Creatine Kinase CK-MB (CK-2) Troponin T Total Protein Albumin HDL Cholesterol TSH Free T3 Index Arterial Blood Glucose 194 H Arterial Blood Ionized Calcium Urine pH Urine WBC (Auto) Urine Creatinine Acetaminophen Crossmatch 05/08/21 05/08/21 05/08/21 05:52 07:07 07:07 WBC 12.0 H RBC 2.94 L Hgb 9.0 L Hct 28.5 L MCV MCH RDW Plt Count Lymph % (Auto) Anderson % (Auto) Anderson # (Auto) Seg Neutrophils % Seg Neuts % (Manual) Lymphocytes % (Manual) Monocytes % (Manual) Seg Neutrophils # Seg Neutrophils # Man Lymphocytes # (Manual) Monocytes # (Manual) ABG pH POC ABG pCO2 POC ABG pO2 ABG Hemoglobin ABG Oxyhemoglobin ABG Sodium ABG Potassium ABG Chloride ABG Glucose Carboxyhemoglobin Sodium Potassium Chloride BUN 73 H Creatinine 2.2 H Glucose 211 H POC Glucose 194 H Calcium Phosphorus Magnesium AST ALT Total Creatine Kinase CK-MB (CK-2) Troponin T Total Protein Albumin HDL Cholesterol TSH Free T3 Index Arterial Blood Glucose Arterial Blood Ionized Calcium Urine pH Urine WBC (Auto) Urine Creatinine Acetaminophen Crossmatch 05/08/21 05/08/21 05/08/21 11:19 17:20 23:22 WBC RBC Hgb Hct MCV MCH RDW Plt Count Lymph % (Auto) Anderson % (Auto) Anderson # (Auto) Seg Neutrophils % Seg Neuts % (Manual) Lymphocytes % (Manual) Monocytes % (Manual) Seg Neutrophils # Seg Neutrophils # Man Lymphocytes # (Manual) Monocytes # (Manual) ABG pH POC ABG pCO2 POC ABG pO2 ABG Hemoglobin ABG Oxyhemoglobin ABG Sodium ABG Potassium ABG Chloride ABG Glucose Carboxyhemoglobin Sodium Potassium Chloride BUN Creatinine Glucose POC Glucose 231 H 251 H 295 H Calcium Phosphorus Magnesium AST ALT Total Creatine Kinase CK-MB (CK-2) Troponin T Total Protein Albumin HDL Cholesterol TSH Free T3 Index Arterial Blood Glucose Arterial Blood Ionized Calcium Urine pH Urine WBC (Auto) Urine Creatinine Acetaminophen Crossmatch 05/09/21 05/09/21 05/09/21 05:39 07:36 11:39 WBC RBC Hgb Hct MCV MCH RDW Plt Count Lymph % (Auto) Anderson % (Auto) Anderson # (Auto) Seg Neutrophils % Seg Neuts % (Manual) Lymphocytes % (Manual) Monocytes % (Manual) Seg Neutrophils # Seg Neutrophils # Man Lymphocytes # (Manual) Monocytes # (Manual) ABG pH POC ABG pCO2 POC ABG pO2 ABG Hemoglobin ABG Oxyhemoglobin ABG Sodium ABG Potassium ABG Chloride ABG Glucose Carboxyhemoglobin Sodium Potassium Chloride BUN 64 H Creatinine 2.2 H Glucose 308 H POC Glucose 240 H 330 H Calcium Phosphorus Magnesium AST ALT Total Creatine Kinase CK-MB (CK-2) Troponin T Total Protein Albumin HDL Cholesterol TSH Free T3 Index Arterial Blood Glucose Arterial Blood Ionized Calcium Urine pH Urine WBC (Auto) Urine Creatinine Acetaminophen Crossmatch 05/09/21 05/09/21 05/10/21 17:37 23:15 05:15 WBC RBC Hgb Hct MCV MCH RDW Plt Count Lymph % (Auto) Anderson % (Auto) Anderson # (Auto) Seg Neutrophils % Seg Neuts % (Manual) Lymphocytes % (Manual) Monocytes % (Manual) Seg Neutrophils # Seg Neutrophils # Man Lymphocytes # (Manual) Monocytes # (Manual) ABG pH POC ABG pCO2 POC ABG pO2 ABG Hemoglobin ABG Oxyhemoglobin ABG Sodium ABG Potassium ABG Chloride ABG Glucose Carboxyhemoglobin Sodium Potassium Chloride BUN Creatinine Glucose POC Glucose 174 H 152 H 146 H Calcium Phosphorus Magnesium AST ALT Total Creatine Kinase CK-MB (CK-2) Troponin T Total Protein Albumin HDL Cholesterol TSH Free T3 Index Arterial Blood Glucose Arterial Blood Ionized Calcium Urine pH Urine WBC (Auto) Urine Creatinine Acetaminophen Crossmatch 05/10/21 05/10/21 05/10/21 05:36 11:29 17:35 WBC RBC Hgb Hct MCV MCH RDW Plt Count Lymph % (Auto) Anderson % (Auto) Anderson # (Auto) Seg Neutrophils % Seg Neuts % (Manual) Lymphocytes % (Manual) Monocytes % (Manual) Seg Neutrophils # Seg Neutrophils # Man Lymphocytes # (Manual) Monocytes # (Manual) ABG pH POC ABG pCO2 POC ABG pO2 ABG Hemoglobin ABG Oxyhemoglobin ABG Sodium ABG Potassium ABG Chloride ABG Glucose Carboxyhemoglobin Sodium Potassium Chloride 110.7 H BUN 54 H Creatinine 2.2 H Glucose 164 H POC Glucose 202 H 109 H Calcium Phosphorus Magnesium AST ALT Total Creatine Kinase CK-MB (CK-2) Troponin T Total Protein Albumin HDL Cholesterol TSH Free T3 Index Arterial Blood Glucose Arterial Blood Ionized Calcium Urine pH Urine WBC (Auto) Urine Creatinine Acetaminophen Crossmatch 05/11/21 05/11/21 05/11/21 05:38 07:10 11:54 WBC RBC Hgb Hct MCV MCH RDW Plt Count Lymph % (Auto) Anderson % (Auto) Anderson # (Auto) Seg Neutrophils % Seg Neuts % (Manual) Lymphocytes % (Manual) Monocytes % (Manual) Seg Neutrophils # Seg Neutrophils # Man Lymphocytes # (Manual) Monocytes # (Manual) ABG pH POC ABG pCO2 POC ABG pO2 ABG Hemoglobin ABG Oxyhemoglobin ABG Sodium ABG Potassium ABG Chloride ABG Glucose Carboxyhemoglobin Sodium Potassium 5.2 H Chloride 108.8 H BUN 50 H Creatinine 2.2 H Glucose 176 H POC Glucose 135 H 219 H Calcium Phosphorus Magnesium AST ALT Total Creatine Kinase CK-MB (CK-2) Troponin T Total Protein Albumin HDL Cholesterol TSH Free T3 Index Arterial Blood Glucose Arterial Blood Ionized Calcium Urine pH Urine WBC (Auto) Urine Creatinine Acetaminophen Crossmatch 05/11/21 05/11/21 05/12/21 17:51 22:50 04:51 WBC RBC Hgb Hct MCV MCH RDW Plt Count Lymph % (Auto) Anderson % (Auto) Anderson # (Auto) Seg Neutrophils % Seg Neuts % (Manual) Lymphocytes % (Manual) Monocytes % (Manual) Seg Neutrophils # Seg Neutrophils # Man Lymphocytes # (Manual) Monocytes # (Manual) ABG pH POC ABG pCO2 POC ABG pO2 ABG Hemoglobin ABG Oxyhemoglobin ABG Sodium ABG Potassium ABG Chloride ABG Glucose Carboxyhemoglobin Sodium Potassium Chloride 108.2 H BUN 49 H Creatinine 2.2 H Glucose 161 H POC Glucose 169 H 118 H Calcium Phosphorus Magnesium AST ALT Total Creatine Kinase CK-MB (CK-2) Troponin T Total Protein Albumin HDL Cholesterol TSH Free T3 Index Arterial Blood Glucose Arterial Blood Ionized Calcium Urine pH Urine WBC (Auto) Urine Creatinine Acetaminophen Crossmatch 05/12/21 05/12/21 05/12/21 05:05 10:31 11:50 WBC RBC Hgb Hct MCV MCH RDW Plt Count Lymph % (Auto) Anderson % (Auto) Anderson # (Auto) Seg Neutrophils % Seg Neuts % (Manual) Lymphocytes % (Manual) Monocytes % (Manual) Seg Neutrophils # Seg Neutrophils # Man Lymphocytes # (Manual) Monocytes # (Manual) ABG pH 7.498 H POC ABG pCO2 POC ABG pO2 75.8 L ABG Hemoglobin 7.3 L ABG Oxyhemoglobin 93.4 L ABG Sodium ABG Potassium ABG Chloride 108.0 H ABG Glucose 199 H Carboxyhemoglobin 1.6 H Sodium Potassium Chloride BUN Creatinine Glucose POC Glucose 160 H 160 H Calcium Phosphorus Magnesium AST ALT Total Creatine Kinase CK-MB (CK-2) Troponin T Total Protein Albumin HDL Cholesterol TSH Free T3 Index Arterial Blood Glucose 199 H Arterial Blood Ionized Calcium Urine pH Urine WBC (Auto) Urine Creatinine Acetaminophen Crossmatch 05/12/21 05/12/21 05/13/21 17:39 23:36 05:49 WBC RBC Hgb Hct MCV MCH RDW Plt Count Lymph % (Auto) Anderson % (Auto) Anderson # (Auto) Seg Neutrophils % Seg Neuts % (Manual) Lymphocytes % (Manual) Monocytes % (Manual) Seg Neutrophils # Seg Neutrophils # Man Lymphocytes # (Manual) Monocytes # (Manual) ABG pH POC ABG pCO2 POC ABG pO2 ABG Hemoglobin ABG Oxyhemoglobin ABG Sodium ABG Potassium ABG Chloride ABG Glucose Carboxyhemoglobin Sodium Potassium Chloride BUN Creatinine Glucose POC Glucose 148 H 148 H 173 H Calcium Phosphorus Magnesium AST ALT Total Creatine Kinase CK-MB (CK-2) Troponin T Total Protein Albumin HDL Cholesterol TSH Free T3 Index Arterial Blood Glucose Arterial Blood Ionized Calcium Urine pH Urine WBC (Auto) Urine Creatinine Acetaminophen Crossmatch 05/13/21 05/13/21 05/13/21 05:58 13:09 17:01 WBC RBC Hgb Hct MCV MCH RDW Plt Count Lymph % (Auto) Anderson % (Auto) Anderson # (Auto) Seg Neutrophils % Seg Neuts % (Manual) Lymphocytes % (Manual) Monocytes % (Manual) Seg Neutrophils # Seg Neutrophils # Man Lymphocytes # (Manual) Monocytes # (Manual) ABG pH POC ABG pCO2 POC ABG pO2 ABG Hemoglobin ABG Oxyhemoglobin ABG Sodium ABG Potassium ABG Chloride ABG Glucose Carboxyhemoglobin Sodium Potassium Chloride 108.0 H BUN 53 H Creatinine 2.2 H Glucose 178 H POC Glucose 191 H 151 H Calcium Phosphorus Magnesium AST ALT Total Creatine Kinase CK-MB (CK-2) Troponin T Total Protein Albumin HDL Cholesterol TSH Free T3 Index Arterial Blood Glucose Arterial Blood Ionized Calcium Urine pH Urine WBC (Auto) Urine Creatinine Acetaminophen Crossmatch 05/14/21 05/14/21 05/14/21 00:02 04:48 08:16 WBC RBC Hgb Hct MCV MCH RDW Plt Count Lymph % (Auto) Anderson % (Auto) Anderson # (Auto) Seg Neutrophils % Seg Neuts % (Manual) Lymphocytes % (Manual) Monocytes % (Manual) Seg Neutrophils # Seg Neutrophils # Man Lymphocytes # (Manual) Monocytes # (Manual) ABG pH POC ABG pCO2 POC ABG pO2 ABG Hemoglobin ABG Oxyhemoglobin ABG Sodium ABG Potassium ABG Chloride ABG Glucose Carboxyhemoglobin Sodium Potassium Chloride BUN 45 H Creatinine 2.0 H Glucose 207 H POC Glucose 148 H 193 H Calcium Phosphorus Magnesium AST ALT Total Creatine Kinase CK-MB (CK-2) Troponin T Total Protein Albumin HDL Cholesterol TSH Free T3 Index Arterial Blood Glucose Arterial Blood Ionized Calcium Urine pH Urine WBC (Auto) Urine Creatinine Acetaminophen Crossmatch 05/14/21 05/14/21 05/14/21 08:50 12:44 17:29 WBC RBC 2.16 L Hgb 7.0 L Hct 21.2 L MCV 98 H MCH 33 H RDW 16.0 H Plt Count Lymph % (Auto) Anderson % (Auto) Anderson # (Auto) Seg Neutrophils % Seg Neuts % (Manual) Lymphocytes % (Manual) Monocytes % (Manual) Seg Neutrophils # Seg Neutrophils # Man Lymphocytes # (Manual) Monocytes # (Manual) ABG pH POC ABG pCO2 POC ABG pO2 ABG Hemoglobin ABG Oxyhemoglobin ABG Sodium ABG Potassium ABG Chloride ABG Glucose Carboxyhemoglobin Sodium Potassium Chloride BUN Creatinine Glucose POC Glucose 215 H 118 H Calcium Phosphorus Magnesium AST ALT Total Creatine Kinase CK-MB (CK-2) Troponin T Total Protein Albumin HDL Cholesterol TSH Free T3 Index Arterial Blood Glucose Arterial Blood Ionized Calcium Urine pH Urine WBC (Auto) Urine Creatinine Acetaminophen Crossmatch 05/14/21 05/15/21 05/15/21 19:00 05:11 05:51 WBC RBC Hgb Hct MCV MCH RDW Plt Count Lymph % (Auto) Anderson % (Auto) Anderson # (Auto) Seg Neutrophils % Seg Neuts % (Manual) Lymphocytes % (Manual) Monocytes % (Manual) Seg Neutrophils # Seg Neutrophils # Man Lymphocytes # (Manual) Monocytes # (Manual) ABG pH POC ABG pCO2 POC ABG pO2 ABG Hemoglobin ABG Oxyhemoglobin ABG Sodium ABG Potassium ABG Chloride ABG Glucose Carboxyhemoglobin Sodium Potassium 5.3 H Chloride BUN 42 H Creatinine 2.0 H Glucose 123 H POC Glucose 116 H Calcium Phosphorus Magnesium AST ALT Total Creatine Kinase CK-MB (CK-2) Troponin T Total Protein Albumin HDL Cholesterol TSH Free T3 Index Arterial Blood Glucose Arterial Blood Ionized Calcium Urine pH Urine WBC (Auto) Urine Creatinine Acetaminophen Crossmatch See Detail 05/15/21 05/15/21 05:51 11:27 WBC RBC 2.60 L Hgb 8.0 L Hct 24.6 L MCV MCH RDW 17.0 H Plt Count Lymph % (Auto) Anderson % (Auto) 15.3 H Anderson # (Auto) 1.1 H Seg Neutrophils % Seg Neuts % (Manual) Lymphocytes % (Manual) Monocytes % (Manual) Seg Neutrophils # Seg Neutrophils # Man Lymphocytes # (Manual) Monocytes # (Manual) ABG pH POC ABG pCO2 POC ABG pO2 ABG Hemoglobin ABG Oxyhemoglobin ABG Sodium ABG Potassium ABG Chloride ABG Glucose Carboxyhemoglobin Sodium Potassium Chloride BUN Creatinine Glucose POC Glucose 156 H Calcium Phosphorus Magnesium AST ALT Total Creatine Kinase CK-MB (CK-2) Troponin T Total Protein Albumin HDL Cholesterol TSH Free T3 Index Arterial Blood Glucose Arterial Blood Ionized Calcium Urine pH Urine WBC (Auto) Urine Creatinine Acetaminophen Crossmatch Chest x-ray: other (none) Allied health notes reviewed: nursing
[2021-05-15] MEDS: LATANOPROST 0.005% OPHTH SOLN 2.5 ML OU SCH (17:18)
--- NOTE | 2021-05-15 19:32 | Progress Note ---
Assessment and Plan Assessment and plan: This is a 80-year-old female with HTN, DM, ID, breast CA s/p double mastectomy, TIA who presented with hypoglycemia, AMS who was admitted with SIRS, symptomatic bradycardia, acute metabolic encephalopathy, acute hypoxic respiratory failure, elevated TSH, hyperglycemia, hyponatremia, hypokalemia, ROJELIO and rhabdomyolysis Acute metabolic encephalopathy-persist Acute hypoxic respiratory failure (extubated 04/20)- Re-intubated secondary to Stridor and paradoxical breathing - s/p trach and PEG First-degree heart block Resolved ileus versus mechanical obstruction Acute kidney injury with vasomotor nephropathy UTI, Pseudomonas/ Earline Elevated TSH Mild rhabdomyolysis Hypertension Diabetes mellitus with hyperglycemia on admission CAD Hypothyroidism Chronic illness debilitymyopathy Obesity -CCM, nephrology, neurology, cardiology consulted, patient recommendations -S/p D10 and D5W gtt, on TF -S/p IV calcium gluconate, regular insulin, D50 -S/p transcutaneous pacing, intermittent demand pacer in place -Renal ultrasound findings consistent with acute on chronic kidney disease, mildly complex right renal cyst -Blood pressure monitoring per protocol -Accu-Cheks every 6, SSI, long acting insulin -IV hydralazine as needed -04/25 EEG is mildly abnormal with mild slowing noted throughout the recording, suggestive of mild cortical dysfunction and/or drug effect -04/20 EEG shows mildly abnormal record due to diffuse background slowing noted throughout the recording, intermittent motion artifact, patient intubated and sedated at time of study, no sign of seizures as well epilepticus noted, possible toxic metabolic encephalopathy, drug effect, possible postictal state cannot be totally excluded. -Avoid ACEi/ARB in setting of ROJELIO -Avoid AV arron blocking agents -Avoid nephrotoxic agents and renally dose medications -BB, hydralazine, amlodipine -TSH 14.1, T4 4.1, T3 1.1-started on levothyroxine -As needed racemic epinephrine -S/p steroids -s/p Antibiotic therapy -Trend CBC, BMP DVT/GI prophylaxis: Heparin subcu, PPI, SCDs to bilateral lower extremities while in bed Disposition: ICU The high probability of a clinically significant, sudden or life threatening deterioration of the [PULMONARY, CARDIAC, RENAL] system(s) required my full and direct attention, intervention and personal management. The aggregate critical care time was [35] minutes. This time is in addition to time spent performing reported procedures but includes the following: [X] Data Review and interpretation [X] Patient assessment and monitoring of vital signs [X] Documentation [X] Medication orders and management History Interval history: This is a 80-year-old female with hypertension, diabetes mellitus, ID, breast cancer s/p double mastectomy, and a TIA who presented with hypoglycemia and altered mental status on 04/15 via EMS. Per EMS patient was unresponsive on their arrival and her blood glucose was 38 and she received 1 amp of dextrose patient continued to be unresponsive and only moaned with her eyes deviating to the left. Work-up in the emergency department revealed SIRS, symptomatic bradycardia, acute metabolic encephalopathy, acute hypoxic respiratory failure, elevated TSH, hyperglycemia, hyponatremia, hyperkalemia, acute kidney injury with ATN, and rhabdomyolysis 04/16: Neurology consulted, COVID-19 PCR negative, D10 drip decreased and alicia ntually discontinued by [facility] and started on D5W for 1 L. Hydralazine as needed. Patient had hyper kalemia today and was treated with D50, insulin and Kayexalate. This time examination patient is on assist control tidal volume 450, rate of 16, PEEP of 6 and 25% FiO2. 04/17: Patient started on low-dose beta-angel per cardiology, CPAP trial again per [facility], BUN/creatinine holding steady and hypochloremia/hyponatremia slightly improved and hypokalemia has resolved. This morning a KUB was obtained which was concerning for ileus versus mechanical obstruction and surgery was consulted. Patient was made n.p.o. and NG tube placed to wall suction. Patient was given suppository. Per RN patient did not have a BM even though she was given Kayexalate yesterday. Will obtain a KUB in the a.m. Neurology was consulted yesterday and will await further recommendations. Nephew updated at bedside today, Carlos Romero. 04/18: Neurology has ordered EEG/MRI B, [facility] continues to wean MV. Persistent low grade temperature so we will obtain BCx2/UA. Patient has improving leukocytosis, hyponatremia, renal function studies and hypochloremia. She has hypokalemia today which is being repleted. Surgery has signed off today and has okayed resumption of TF. [facility] will trial CPAP for longer today and plans to attempt extubation in AM. Family has requested transfer to [facility] and Dr. Gordon will attempt to contact transfer center. I updated her nephew, Carlos Romero over the phone today abouyt current events and update on transfer ([facility] will conduct a utilization review) 04/19: This morning patient is on CPAP trial at the time of examination, noted to be hypertensive and metoprolol increased to home dose, started on synthroid by CCM, lantus started re hyperglycemia, MRI completed with no acute findings. Severe hypokalemia (repleted and Mg pending). CCM will contact CPAP trial again today with possible trial extubation tomorrow. 04/20: Patient's leukocytosis and kidney function tests continue to improve. Patient is hypertensive overnight we will restart home hydralazine. [facility] plans to extubate patient today. Family is attempting to transfer to another facility. EEG pending, RT will atmept to contact firestopper technician. Urine culture grew gram negative rods. Increase in lantus 04/21: Increase in Lantus, repleted phos. Patient has started this afternoon and was given racemic epinephrine and started on steroids. Patient will have BiPAP as needed. We will recheck BMP in the a.m. renal function studies continues to decrease. Patient has been hypertensive on evaluation regimen has been changed . 04/22: Lantus increased for hyperglycemia and add amlodipine for better BP control. Patient is on steroids. OT suctioned by RN with catheter in oral care kit and received copious amounts of secretions. Cr continues to decrease. Culture grew Pseudomonas and was changed in accordance to sensitivity. Kerr removed today after clearance from nephrology. 04/23: MRI of the brain was done and unremarkable. Will obtain reconsult to nephrology for further assistance as patient remains in profound encephalopathy despite improvement of blood sugar. Will repeat chest x-ray as patient does have significant congestion physical exam. Tube feeds still ongoing. Continue aspiration precautions. Continue antibiotics when completed for Pseudomonas management 04/24: Neurology input noted, patient unfortunately with no improvement mental status [place], continues with congestion, will defer with Marketing Regional Consultant for lasix in the setting of renal failure. will give kayexlate for hyperkalemia, still moans and groans, mittens in place. 04/25: Patient currently intubated, on restraints for safety, Profund encephalopathy persist, although awake she is not following any commands, Call placed to [facility] to see if they will accept transfer for ENT evaluation, while CT neck was negative, it was degraded by motion and unable to determent why patient had this stridor, Racemic Epinephrine was given, [facility] is on ICU saturation, but will call back with an ENT to discuss case. Renal function mildly worse, continue to monitor. Per cardiology, no further arrhythmias noted since admission. Given short duration of atrial fibrillation, along with pt's age, renal fxn, and other co- morbidities,...will resume additional medical therapies for underlying severe multi-vessel CAD (bASA & Plavix). Pt has previously declined intervention of known lesions as per her Primary Germination Worker. 04/26: Now with febrile illness, ?developing infection, start on empiric abx, check lactate level, blood cultures, continue management per Veterans Service Officer, Monitor leukocytosis, agree with Trach, family updated about denials in transfer request from outside hospitals. 04/27: WBC improving some, still with fever despite antibotics, ID consulted. CXR clear, continue current management, Trach will be planned if ok with family. Bl ood sugar remains elevated, will adjust insulin LANTUS to 40 units. Patient had previously completed Cefepime. Mental status remains unchanged, still moves upper ext. continue restraints 04/28: Continue supportive care. No new fever noted. Critical care physician will determine if patient should be have a trial of extubation again or if we should proceed straight to trach. Again continue to monitor mental status for complete improvement. 04/29: Per Veterans Service Officer discussion with family, will proceed to Tracheostomy, Patients mental status still fluctuating, Continue current management. Surgeon consulted. 04/30: General surgery consulted for trach, continue to trend CBC and BMP. Kidney function slightly worsened today. Increase in Lantus. Tmax 100.2, per ID will consider imaging if leukocytosis remains elevated with fevers. Plavix held for possible tracheostomy next week. 05/01: Patient fever curve is trending down with improving leukocytosis. Patient renal function worsened today. She remains hyperglycemic and her Lantus was increased to her home dose of Novolin 70/30. Patient was rate controlled yesterday due to T-max of 101. She remains on CMV tidal volume 450, rate of 10, PEEP of 6 and 30% FiO2. We will increase the water flushes given slight hypernatremia. Dr. Andrea updated nephew (Carlos) at bedside. CPAP trails. 05/02: Patient's hypernatremia and hyperchloremia slightly worsened and femur fractures were increased. Kidney functions remain the same however BUN is in the 100s. Nephrology is following. Kerr catheter was removed. Awaiting trach placement with possibility on Friday. 05/03: Patient grew Earline in her urine culture however per ID and the Kerr was already exchanged. Patient is on cefepime and Flagyl. Plavix still on hold awaiting trach. CCM started the patient on half-normal saline at 75 mL/h for 2 L related to azatoma and hypernatremia. Patient mental status continues to wax and wane. Creatinine is 3.1 today from 3.4 yesterday. Patient had a bowel movement today. Patient remains hyperglycemic and Lantus was changed from a.m. to p.m.. 05/04: Patient's renal function is improving, surgery obtain consent for trach/PEG scheduled for 05/07, antibiotics to end tomorrow. We will obtain BMP in the a.m. Lantus dosage change from AC to at bedtime in hopes of better glycemic control. 05/05: Patient Lantus dose is changed to twice daily in hopes of better glycemic control. Awaiting surgical procedure hopefully on Friday. Patient's BUN/creatinine improved and hypernatremia has resolved. 05/06: Patient has slight hypernatremia and hyperchloremia and improvement to BUN/creatinine. Better glycemic control. Awaiting trach on Friday. NGT was displaced but now replaced and TF resumed. 05/07 This is a 80-year-old female with HTN, DM, ID, breast CA s/p double mastectomy, TIA who presented with hypoglycemia, AMS who was admitted with SIRS, symptomatic bradycardia, acute metabolic encephalopathy, acute hypoxic respiratory failure, elevated TSH, hyperglycemia, hyponatremia, hypokalemia, ROJELIO and rhabdomyolysis. She is for Trach and PEG today. 05/08: s/p trach and PEG placement yesterday. cont to monitor, wean off from vent as tolertaed 05/09: Patient started on tube feeding and tolerating well. Currently on CPAP setting with newly placed trach. Discussed with case management and patient would need placement. Continue supportive care and follow clinically. 05/10: Continue supportive care, patient is tolerating tube feeding diet. Remains on CPAP with trach. Pending LTAC placement. 05/11: Continue supportive care, patient is tolerating tube feeding diet. Remains on CPAP with trach. Plan to wean off from Vent as tolerates and to place on t-piece. 05/12; Patient placed on t-piece today, tolerating TF, cont to monitor clinically. follow CBC/BMP 05/13: Remains on t-piece, plan to wean off to wall T-piece. If unable to wean off from vent then patient will need criteria for LTAC upon her insurance requirement. If she tolerates weaning trial and able to maintain T-piece then she will be discharged back to longterm. Ordered for a.m. labs. Continue to follow clinically with supportive care. 05/14: Pending placement. Patient back on Mechanical ventilation today with trach tube. Hemoglobin 7.0. Will transfuse 1 unit packed RBC. Continue to monitor clinically. 05/15: Pending placement, CCM continues to trial patient on trach collar for as long as tolerated. Patient is H/H improved to 8/24.6 after 1 unit PRBC. Renal function continues to fluctuate and is currently at CR 2/BUN 42. Patient is sl ightly hyperkalemic today at 5.3 and received 30 g of Kionex. We will obtain a.m. BMP and continue to trend CBC. Patient is hypertensive and hydralazine dose has been increased. Hospitalist Physical - Constitutional Vitals: Temp Pulse Resp BP Pulse Ox 98.1 F 75 17 135/44 98 05/15/21 16:00 05/15/21 18:00 05/15/21 18:00 05/15/21 18:00 05/15/21 18:00 General appearance: Present: no acute distress, other (intubated, on mechanical ventilation) HEART Score - HEART Score Troponin: Troponin T 0.065 ng/mL (0.00-0.029) H 04/20/21 03:32 Results - Labs CBC & Chem 7: 05/15/21 05:51 05/15/21 05:51 Labs: Laboratory Last Values WBC 7.1 K/mm3 (4.5-11.0) 05/15/21 05:51 RBC 2.60 M/mm3 (3.65-5.03) L 05/15/21 05:51 Hgb 8.0 gm/dl (10.1-14.3) L 05/15/21 05:51 Hct 24.6 % (30.3-42.9) L 05/15/21 05:51 MCV 94 fl (79-97) 05/15/21 05:51 MCH 31 pg (28-32) 05/15/21 05:51 MCHC 33 % (30-34) 05/15/21 05:51 RDW 17.0 % (13.2-15.2) H 05/15/21 05:51 Plt Count 243 K/mm3 (140-440) 05/15/21 05:51 Lymph % (Auto) 21.1 % (13.4-35.0) 05/15/21 05:51 [place] % (Auto) 15.3 % (0.0-7.3) H 05/15/21 05:51 Eos % (Auto) 2.9 % (0.0-4.3) 05/15/21 05:51 Baso % (Auto) 0.4 % (0.0-1.8) 05/15/21 05:51 Lymph # (Auto) 1.5 K/mm3 (1.2-5.4) 05/15/21 05:51 [place] # (Auto) 1.1 K/mm3 (0.0-0.8) H 05/15/21 05:51 Eos # (Auto) 0.2 K/mm3 (0.0-0.4) 05/15/21 05:51 Baso # (Auto) 0.0 K/mm3 (0.0-0.1) 05/15/21 05:51 Add Manual Diff Complete 05/01/21 07:11 Total Counted 100 05/01/21 07:11 Seg Neutrophils % 60.3 % (40.0-70.0) 05/15/21 05:51 Seg Neuts % (Manual) 80.0 % (40.0-70.0) H 05/01/21 07:11 Band Neutrophils % 7.0 % 05/01/21 07:11 Lymphocytes % (Manual) 5.0 % (13.4-35.0) L 05/01/21 07:11 Monocytes % (Manual) 6.0 % (0.0-7.3) 05/01/21 07:11 Eosinophils % (Manual) 1.0 % (0.0-4.3) 05/01/21 07:11 Metamyelocytes % 1.0 % 05/01/21 07:11 Nucleated RBC % Not Reportable 05/01/21 07:11 Seg Neutrophils # 4.3 K/mm3 (1.8-7.7) 05/15/21 05:51 Seg Neutrophils # Man 9.8 K/mm3 (1.8-7.7) H 05/01/21 07:11 Band Neutrophils # 0.9 K/mm3 05/01/21 07:11 Lymphocytes # (Manual) 0.6 K/mm3 (1.2-5.4) L 05/01/21 07:11 Abs React Lymphs (Man) 0.0 K/mm3 05/01/21 07:11 Monocytes # (Manual) 0.7 K/mm3 (0.0-0.8) 05/01/21 07:11 Eosinophils # (Manual) 0.1 K/mm3 (0.0-0.4) 05/01/21 07:11 Basophils # (Manual) 0.0 K/mm3 (0.0-0.1) 05/01/21 07:11 Metamyelocytes # 0.1 K/mm3 05/01/21 07:11 Myelocytes # 0.0 K/mm3 05/01/21 07:11 Promyelocytes # 0.0 K/mm3 05/01/21 07:11 Blast Cells # 0.0 K/mm3 05/01/21 07:11 WBC Morphology Not Reportable 05/01/21 07:11 Hypersegmented Neuts Not Reportable 05/01/21 07:11 Hyposegmented Neuts Not Reportable 05/01/21 07:11 Hypogranular Neuts Not Reportable 05/01/21 07:11 Smudge Cells Not Reportable 05/01/21 07:11 Toxic Granulation Not Reportable 05/01/21 07:11 Toxic Vacuolation Not Reportable 05/01/21 07:11 Dohle Bodies Not Reportable 05/01/21 07:11 Pelger-Huet Anomaly Not Reportable 05/01/21 07:11 [place] Rods Not Reportable 05/01/21 07:11 Platelet Estimate Consistent w auto 05/01/21 07:11 Clumped Platelets Not Reportable 05/01/21 07:11 Plt Clumps, EDTA Not Reportable 05/01/21 07:11 Large Platelets Not Reportable 05/01/21 07:11 Giant Platelets Not Reportable 05/01/21 07:11 Platelet Satelliting Not Reportable 05/01/21 07:11 Plt Morphology Comment Not Reportable 05/01/21 07:11 RBC Morphology Normal 05/01/21 07:11 Dimorphic RBCs Not Reportable 05/01/21 07:11 Polychromasia Not Reportable 05/01/21 07:11 Hypochromasia Not Reportable 05/01/21 07:11 Poikilocytosis Not Reportable 05/01/21 07:11 Anisocytosis Not Reportable 05/01/21 07:11 Microcytosis Not Reportable 05/01/21 07:11 Macrocytosis Not Reportable 05/01/21 07:11 Spherocytes Not Reportable 05/01/21 07:11 Pappenheimer Bodies Not Reportable 05/01/21 07:11 Sickle Cells Not Reportable 05/01/21 07:11 Target Cells Not Reportable 05/01/21 07:11 Tear Drop Cells Not Reportable 05/01/21 07:11 Ovalocytes Not Reportable 05/01/21 07:11 Helmet Cells Not Reportable 05/01/21 07:11 [place] Bodies Not Reportable 05/01/21 07:11 [place] Rings Not Reportable 05/01/21 07:11 [place] Cells Not Reportable 05/01/21 07:11 Bite Cells Not Reportable 05/01/21 07:11 Crenated Cell Not Reportable 05/01/21 07:11 Elliptocytes Not Reportable 05/01/21 07:11 Acanthocytes (Spur) Not Reportable 05/01/21 07:11 Rouleaux Not Reportable 05/01/21 07:11 Hemoglobin C Crystals Not Reportable 05/01/21 07:11 Schistocytes Not Reportable 05/01/21 07:11 Malaria parasites Not Reportable 05/01/21 07:11 James Bodies Not Reportable 05/01/21 07:11 Hem Pathologist Commnt No 05/01/21 07:11 PT 14.8 Sec. (12.2-14.9) 05/07/21 08:20 INR 1.11 (0.87-1.13) 05/07/21 08:20 APTT 31.8 Sec. (24.2-36.6) 04/15/21 17:20 ABG pH 7.498 (7.320-7.450) H 05/12/21 10:31 POC ABG pCO2 35.2 mmHg (32.0-48.0) 05/12/21 10:31 POC ABG pO2 75.8 mmHg (83-108) L 05/12/21 10:31 POC ABG HCO3 26.7 05/12/21 10:31 ABG O2 Saturation 95.2 (0-100) 05/12/21 10:31 POC ABG Base Excess 3.3 05/12/21 10:31 ABG Hemoglobin 7.3 (12.0-17.5) L 05/12/21 10:31 ABG Oxyhemoglobin 93.4 (94-98) L 05/12/21 10:31 ABG Methemoglobin 0.3 (0.0-1.5) 05/12/21 10:31 ABG Sodium 142.1 mmol/L (136.0-145.0) 05/12/21 10:31 ABG Potassium 4.0 mmol/L (3.40-4.50) 05/12/21 10:31 ABG Chloride 108.0 mmol/L (98-107) H 05/12/21 10:31 ABG Glucose 199 mg/dL (65-95) H 05/12/21 10:31 Carboxyhemoglobin 1.6 (0.5-1.5) H 05/12/21 10:31 FiO2 % 35.0 05/12/21 10:31 Sodium 140 mmol/L (137-145) 05/15/21 05:51 Potassium 5.3 mmol/L (3.6-5.0) H 05/15/21 05:51 Chloride 106.3 mmol/L (98-107) 05/15/21 05:51 Carbon Dioxide 26 mmol/L (22-30) 05/15/21 05:51 Anion Gap 13 mmol/L 05/15/21 05:51 BUN 42 mg/dL (7-17) H 05/15/21 05:51 Creatinine 2.0 mg/dL (0.6-1.2) H 05/15/21 05:51 Estimated GFR 29 ml/min 05/15/21 05:51 BUN/Creatinine Ratio 21 % 05/15/21 05:51 Glucose 123 mg/dL (65-100) H 05/15/21 05:51 POC Glucose 156 mg/dL (70-105) H 05/15/21 11:27 Lactic Acid 1.10 mmol/L (0.7-2.0) 04/26/21 09:30 Calcium 9.6 mg/dL (8.4-10.2) 05/15/21 05:51 Phosphorus 2.60 mg/dL (2.5-4.5) 04/22/21 08:00 Magnesium 2.10 mg/dL (1.7-2.3) 04/23/21 07:02 Total Bilirubin 0.30 mg/dL (0.1-1.2) 04/28/21 04:13 Direct Bilirubin < 0.2 mg/dL (0-0.2) 04/28/21 04:13 Indirect Bilirubin 0.1 mg/dL 04/28/21 04:13 AST 61 units/L (5-40) H 04/28/21 04:13 ALT 64 units/L (7-56) H 04/28/21 04:13 Alkaline Phosphatase 95 units/L (35-129) 04/28/21 04:13 Ammonia 46.0 umol/L (25-60) 04/15/21 17:20 Total Creatine Kinase 427 units/L (30-135) H 04/18/21 05:34 CK-MB (CK-2) 9.1 ng/mL (0.0-4.0) H 04/17/21 15:35 CK-MB (CK-2) Rel Index 1.4 (0-4) 04/17/21 15:35 Troponin T 0.065 ng/mL (0.00-0.029) H 04/20/21 03:32 NT-Pro-B Natriuret Pep 697.9 pg/mL (0-900) 04/15/21 17:20 Total Protein 6.2 g/dL (6.3-8.2) L 04/28/21 04:13 Albumin 2.6 g/dL (3.9-5) L 04/28/21 04:13 Albumin/Globulin Ratio 0.7 % 04/28/21 04:13 Triglycerides 103 mg/dL (2-149) 04/17/21 05:04 Cholesterol 122 mg/dL (50-199) 04/17/21 05:04 LDL Cholesterol Direct 55 mg/dL (50-130) 04/17/21 05:04 HDL Cholesterol 61 mg/dL (40-59) H 04/17/21 05:04 Cholesterol/HDL Ratio 2.00 % 04/17/21 05:04 Procalcitonin 0.20 ng/mL (<0.15) 04/16/21 19:01 TSH 14.190 mlU/mL (0.270-4.200) H 04/15/21 17:20 Thyroxine (T4) 4.1 ug/dL (4.0-12.0) 04/16/21 19:01 Free T3 Index 1.1 pg/mL (2.3-4.2) L 04/16/21 19:01 Arterial Blood Glucose 199 mg/dL (65-95) H 05/12/21 10:31 Arterial Blood Ionized Calcium 4.9 mg/dL (4.6-5.3) 05/12/21 10:31 Urine Color Yellow (Yellow) 04/30/21 17:45 Urine Turbidity Cloudy (Clear) 04/30/21 17:45 Urine pH 5.0 (5.0-7.0) 04/30/21 17:45 Ur Specific [place] 1.016 (1.003-1.030) 04/30/21 17:45 Urine Protein 100 mg/dl mg/dL (Negative) 04/30/21 17:45 Urine Glucose (UA) Neg mg/dL (Negative) 04/30/21 17:45 Urine Ketones Neg mg/dL (Negative) 04/30/21 17:45 Urine Blood Mod (Negative) 04/30/21 17:45 Urine Nitrite Neg (Negative) 04/30/21 17:45 Urine Bilirubin Neg (Negative) 04/30/21 17:45 Urine Urobilinogen < 2.0 mg/dL (<2.0) 04/30/21 17:45 Ur Leukocyte Esterase Mod (Negative) 04/30/21 17:45 Urine WBC (Auto) 48.0 /HPF (0.0-6.0) H 04/30/21 17:45 Urine RBC (Auto) 103.0 /HPF (0.0-6.0) 04/30/21 17:45 U Epithel Cells (Auto) < 1.0 /HPF (0-13.0) 04/16/21 00:09 Urine Bacteria (Auto) 1+ /HPF (Negative) 04/16/21 00:09 Urine Mucus Few /HPF 04/30/21 17:45 Urine Yeast (Budding) 3+ /HPF 04/30/21 17:45 Urine Creatinine 24.4 mg/dL (0.1-20.0) H 04/16/21 00:12 Urine Sodium 97 mmol/L 04/16/21 00:12 Random Vancomycin 15.5 ug/mL (0-40.0) 04/27/21 07:52 Salicylates 4.1 mg/dL (2.8-20.0) 04/15/21 17:20 Acetaminophen 5.0 ug/mL (10.0-30.0) L 04/15/21 17:20 Plasma/Serum Alcohol 0.02 % (0-0.07) 04/15/21 17:20 Coronavirus (PCR) Negative (Negative) 04/16/21 Unknown Blood Type B POSITIVE 05/14/21 19:00 Antibody Screen Negative 05/14/21 19:00 Crossmatch See Detail 05/14/21 19:00 Kerr/IV: Voiding Method Indwelling Catheter Active Medications - Current Medications Current Medications: Generic Name Dose Route Start Last Admin Trade Name Freq PRN Reason Stop Dose Admin Acetaminophen 650 mg 04/15/21 19:11 04/30/21 20:14 Acetaminophen 325 Mg Tab PO 650 mg Q6H PRN Administration Pain MILD(1-3)/Fever >100.5/SEXTON Acetylcysteine 200 mg 05/09/21 16:00 05/15/21 17:25 Acetylcysteine 20% 200 Mg/1 Ml *For Inhalation Use* INHALATION 05/16/21 15:59 200 mg Q8HRT WOLFGANG Administration Albuterol 2.5 mg 05/09/21 13:16 05/15/21 17:26 Albuterol 2.5 Mg/3 Ml Nebu IH 2.5 mg Q6HRT PRN Administration Shortness Of Breath Amlodipine Besylate 10 mg 04/25/21 10:00 05/15/21 11:42 Amlodipine 10 Mg Tab PO 10 mg DAILY WOLFGANG Administration Lipase/Protease/Amylase 1 each 04/16/21 12:52 Lipase 10,500/Protease 25,000/Amylase 43,750 (Units) Dr Cap FEEDTUBE PRN PRN For Clogged Feeding Tube Aspirin 81 mg 04/25/21 10:00 05/15/21 11:42 Aspirin 81 Mg Tab Chew PO 81 mg QDAY WOLFGANG Administration Bisacodyl 10 mg 04/17/21 11:01 05/03/21 09:50 Bisacodyl 10 Mg Rect Supp MI 10 mg QDAY PRN Administration Constipation Brimonidine Tartrate 1 drops 04/17/21 22:00 05/15/21 11:43 Brimonidine 0.15% Ophth Soln OU 1 drops BID [facility] Administration Docusate Sodium 100 mg 04/29/21 15:00 05/15/21 11:42 Docusate Sodium 100 Mg/10 Ml Oral Liqd PO 100 mg BID WOLFGANG Administration Famotidine 20 mg 04/17/21 10:00 05/15/21 11:42 Famotidine 20 Mg Tab PO 20 mg DAILY WOLFGANG Administration Fentanyl 50 mcg 05/13/21 09:30 Fentanyl 100 Mcg/2 Ml Inj IV Q10MIN PRN ANALGESIA Heparin Sodium (Porcine) 5,000 unit 04/15/21 22:00 05/15/21 11:42 Heparin 5,000 Unit/1 Ml Vial SUB-Q 5,000 unit Q12HR WOLFGANG Administration Hydralazine HCl 10 mg 04/16/21 18:00 04/24/21 05:25 Hydralazine 20 Mg/1 Ml Inj IV 10 mg Q4HR PRN Administration Hypertension Hydralazine HCl 100 mg 05/15/21 14:00 05/15/21 15:06 Hydralazine 100 Mg Tab PO 100 mg TID WOLFGANG Administration Hydrophilic Ointment 1 applic 04/15/21 17:24 Lip Therapy Vaseline TP Q2HR PRN Dry Lips Fentanyl Citrate 2,000 mcg in 100 mls @ 4.65 mls/hr 05/13/21 10:00 Fentanyl Drip Premix IV TITR WOLFGANG Protocol 1 MCG/KG/HR Insulin Human Isoph/Insulin Regular 25 unit 05/09/21 08:00 05/15/21 17:17 Insulin Nph/Regular 70/30 Inj SUB-Q 25 unit BIDDIAB [facility]FGANG Administration Insulin Human Lispro 0 unit 04/16/21 15:00 05/15/21 18:39 Insulin Lispro 100 Unit/Ml SUB-Q Not Given Q6HR [facility] Protocol Latanoprost 1 drops 04/17/21 18:00 05/15/21 17:18 Latanoprost 0.005% Ophth Soln 2.5 Ml OU 1 drops QPM [facility] Administration Levothyroxine Sodium 25 mcg 04/19/21 06:00 05/15/21 05:56 Levothyroxine 25 Mcg Tab PO 25 mcg DAILY@0600 [facility] Administration Lorazepam 2 mg 05/13/21 09:30 Lorazepam 2 Mg/Ml Vial IV Q4H PRN Agitation Metoprolol Tartrate 25 mg 04/19/21 10:00 05/15/21 11:42 Metoprolol Tartrate 25 Mg Tab PO 25 mg BID [facility] Administration Multi-Ingred Cream/Lotion/Oil/Oint 1 applic 04/15/21 17:24 05/13/21 10:26 Mineral Oil/Petrolatum, White Ophth Oint 3.5 Gm OU 1 applic Q4HR PRN Administration Dry Eye(s) Pravastatin Sodium 20 mg 04/19/21 22:00 05/14/21 22:56 Pravastatin 20 Mg Tab PO 20 mg QHS [facility] Administration Scopolamine 1 each 04/20/21 18:00 05/14/21 10:52 Scopolamine Transdermal Patch 72 Hr TD 1 each Q3D [facility] Administration Simple Syrup 15 ml 04/16/21 12:52 Simple Syrup 15 Ml FEEDTUBE PRN PRN Hypoglycemia Simple Syrup 30 ml 04/16/21 12:52 Simple Syrup 15 Ml FEEDTUBE PRN PRN Hypoglycemia Sodium Bicarbonate 325 mg 04/16/21 12:52 Sodium Bicarbonate 325 Mg Tab FEEDTUBE PRN PRN For Clogged Feeding Tube Sodium Chloride 10 ml 04/15/21 22:00 05/15/21 11:43 Sodium Chloride 0.9% 10 Ml Flush Syringe IV 10 ml BID [facility] Administration Sodium Chloride 10 ml 04/15/21 19:11 04/24/21 05:27 Sodium Chloride 0.9% 10 Ml Flush Syringe IV 10 ml PRN PRN Administration LINE FLUSH Tamsulosin HCl 0.4 mg 04/25/21 14:00 05/15/21 11:42 Tamsulosin 0.4 Mg Cap PO 0.4 mg QDAY [facility] Administration Timolol Maleate 1 drops 04/19/21 10:00 05/15/21 11:48 Timolol 0.5% Ophth Soln 5 Ml OU 1 drops QDAY [facility] Administration Nutrition/Malnutrition Assess - Dietary Evaluation Nutrition/Malnutrition Findings: Nutrition Notes Start: 04/16/21 12:31 Freq: Status: Active Protocol: Document 05/09/21 12:44 MAYE (Rec: 05/09/21 12:46 [id number][facility] Nutrition Notes Initial or Follow up Brief Note Current Diet TF - Glucerna 1.2 at 50ml/hr Subjective/Other Information Trach and PEG placed on 05/07. Spoke with RN via phone at 12: 12. Pt tolerating TF at goal rate. Pt awaiting placement. Percent of energy/protein needs met: 100% energy 61% pro Nutrition Intervention Follow-Up By: 05/16/21 Additional Comments F/U: stable TF, wt, vent status
[2021-05-15] MEDS: MINERAL OIL/PETROLATUM, WHITE OPHTH OINT 3.5 GM OU PRN (21:27)
[2021-05-15] MEDS: PRAVASTATIN 20 MG TAB PO SCH (21:28)
[2021-05-16] MEDS: INSULIN LISPRO 100 UNIT/ML SUB-Q SCH ×4 (00:17→17:42)
[2021-05-16] MEDS: ALBUTEROL 2.5 MG/3 ML NEBU IH PRN ×2 (00:51→09:40)
[2021-05-16] MEDS: ACETYLCYSTEINE 20% 200 MG/1 ML *FOR INHALATION USE INHALATION SCH ×2 (00:51→09:40)
[2021-05-16] MEDS: LEVOTHYROXINE 25 MCG TAB PO SCH (05:24)
[2021-05-16 07:09] LABS: Calcium 9.9 mg/dL (8.4-10.2)
[2021-05-16] MEDS ORDERED: SODIUM POLYSTYRENE 15 GM/60 ML ORAL LIQD PO ONE (09:00)
[2021-05-16] MEDS: FAMOTIDINE 20 MG TAB PO SCH (09:45)
[2021-05-16] MEDS: amLODIPine 10 MG TAB PO SCH (10:02)
[2021-05-16] MEDS: hydrALAZINE 100 MG TAB PO SCH ×3 (10:03→21:47)
[2021-05-16] MEDS: METOPROLOL TARTRATE 25 MG TAB PO SCH ×2 (10:03→21:57)
[2021-05-16] MEDS: TAMSULOSIN 0.4 MG CAP PO SCH (10:03)
[2021-05-16] MEDS: DOCUSATE SODIUM 100 MG/10 ML ORAL LIQD PO SCH ×2 (10:03→21:50)
[2021-05-16] MEDS: HEPARIN 5,000 UNIT/1 ML VIAL SUB-Q SCH ×2 (10:03→21:57)
[2021-05-16] MEDS: ASPIRIN 81 MG TAB CHEW PO SCH (10:03)
[2021-05-16] MEDS: INSULIN NPH/REGULAR 70/30 INJ SUB-Q SCH ×2 (10:04→17:43)
[2021-05-16] MEDS: MINERAL OIL/PETROLATUM, WHITE OPHTH OINT 3.5 GM OU PRN (10:04)
[2021-05-16] MEDS: TIMOLOL 0.5% OPHTH SOLN 5 ML OU SCH (10:05)
[2021-05-16] MEDS: BRIMONIDINE 0.15% OPHTH SOLN OU SCH ×2 (10:05→21:57)
--- NOTE | 2021-05-16 10:19 | Progress Note ---
Assessment and Plan 1. Acute kidney injury: Vasomotor ROJELIO. ATN likely. Renal US negative for hydro. Baseline renal function is unknown. Monitor renal function. Non-oliguric. BUN and creatinine level continue to improve. Avoid nephrotoxic agents. Meds dosage based on GFR. 2. FEN: Hypokalemia, Kayexalate, monitor. Hypernatremia, improved, monitor. Monitor lytes and volume status. 3. Acute hypoxemic respiratory failure: Extubated, re-intubated 04/24. Trached 05/07. On T-piece. 4. Acute encephalopathy: MRI brain negative. Seen by Neuro. 5. UTI: Pseudomonas and Earline. 6. Hypertension. 7. DM type 2. 8. Mild rhabdomyolysis. 9. Mildly complex R renal cyst: Further testing once patient is more stable. Subjective: Patient was seen and examined at the bedside. Examination: General appearance: well-developed, appears stated age, trached on T-piece HEENT: atraumatic Neck: trached Respiratory: Coarse breath sounds heard Heart: S1S2, no murmur Abdomen: soft, obese, bowel sounds heard, NT, PEG tube noted Integumentary: no obvious rash Neurologic: stuporous Ext: no edema noted : Kerr catheter Subjective Date of service: 05/16/21 Principal diagnosis: Ac. resp failure; AMS; Hypoglycemia; ROJELIO; Hyperkalemia; DM II Objective - Vital Signs Vital signs: Vital Signs - 12hr 05/15/21 05/15/21 05/15/21 23:00 23:24 23:27 Temperature Pulse Rate 72 74 71 Pulse Rate [ Anterior Bilateral Throughout] Respiratory 17 22 Rate Respiratory Rate [Anterior Bilateral Throughout] Blood Pressure 122/50 122/50 O2 Sat by Pulse 100 99 Oximetry O2 Sat by Pulse Oximetry [ Assessment] 05/16/21 05/16/21 05/16/21 00:00 00:55 01:00 Temperature 98.8 F Pulse Rate 75 78 Pulse Rate [ 74 Anterior Bilateral Throughout] Respiratory 16 19 Rate Respiratory 20 Rate [Anterior Bilateral Throughout] Blood Pressure 122/50 137/57 O2 Sat by Pulse 99 97 Oximetry O2 Sat by Pulse 98 Oximetry [ Assessment] 05/16/21 05/16/21 05/16/21 02:00 03:00 03:25 Temperature 98.9 F Pulse Rate 73 73 Pulse Rate [ Anterior Bilateral Throughout] Respiratory 20 13 Rate Respiratory Rate [Anterior Bilateral Throughout] Blood Pressure 146/59 129/52 O2 Sat by Pulse 97 99 Oximetry O2 Sat by Pulse Oximetry [ Assessment] 05/16/21 05/16/21 05/16/21 04:00 05:00 05:15 Temperature Pulse Rate 82 83 Pulse Rate [ Anterior Bilateral Throughout] Respiratory 19 22 Rate Respiratory Rate [Anterior Bilateral Throughout] Blood Pressure 122/53 115/96 O2 Sat by Pulse 98 99 98 Oximetry O2 Sat by Pulse Oximetry [ Assessment] 05/16/21 05/16/21 05/16/21 06:08 08:00 09:16 Temperature 99.1 F Pulse Rate 82 Pulse Rate [ 85 Anterior Bilateral Throughout] Respiratory 25 H Rate Respiratory 22 Rate [Anterior Bilateral Throughout] Blood Pressure O2 Sat by Pulse 99 Oximetry O2 Sat by Pulse 100 Oximetry [ Assessment] 05/16/21 05/16/21 05/16/21 09:42 10:02 10:03 Temperature Pulse Rate 84 Pulse Rate [ Anterior Bilateral Throughout] Respiratory Rate Respiratory Rate [Anterior Bilateral Throughout] Blood Pressure 155/44 155/44 O2 Sat by Pulse 100 Oximetry O2 Sat by Pulse Oximetry [ Assessment] - Lab 05/15/21 05:51 05/16/21 06:40 Most recent lab results ABG pH 7.473 (7.320-7.450) H 05/15/21 22:00 ABG O2 Saturation 96.1 (0-100) 05/15/21 22:00 Calcium 9.9 mg/dL (8.4-10.2) 05/16/21 06:40 Phosphorus 2.60 mg/dL (2.5-4.5) 04/22/21 08:00 Magnesium 2.10 mg/dL (1.7-2.3) 04/23/21 07:02 Urine Creatinine 24.4 mg/dL (0.1-20.0) H 04/16/21 00:12 Urine Sodium 97 mmol/L 04/16/21 00:12 Medications & Allergies - Medications Allergies/Adverse Reactions: Allergies No Known Allergies Allergy (Unverified 04/15/21 17:41) Home Medications: Home Medications Medication Instructions Recorded Confirmed Last Taken Type Betaxolol HCl [Betoptic S 0.25% 1 drop OU BID 04/16/21 04/16/21 Unknown History SUSP] Bimatoprost [Lumigan 0.01%] 1 drop OU QPM 04/16/21 04/16/21 Unknown History Brimonidine Tartrate [Brimonidine 5 ml OU BID 04/16/21 04/16/21 Unknown History Tartrate 0.2%] Furosemide [Lasix TAB] 40 mg PO QDAY 04/16/21 04/16/21 Unknown History Gabapentin [Neurontin] 300 mg PO Q8HR 04/16/21 04/16/21 Unknown History HYDROcodone/APAP 10-325 [Romney 1 each PO Q6HR PRN 04/16/21 04/16/21 Unknown History 10/325] Hydralazine HCl 50 mg PO Q4HR 04/16/21 04/16/21 Unknown History Insulin Aspart Prot/Insuln Asp 52 units SQ HS 04/16/21 04/16/21 Unknown History [Novolog Mix 70-30 Flexpen] Metoprolol [Lopressor] 25 mg PO BID 04/16/21 04/16/21 Unknown History Pravastatin [Pravachol] 20 mg PO QHS 04/16/21 04/16/21 Unknown History Promethazine [Phenergan] 25 mg PO Q6HR 04/16/21 04/16/21 Unknown History allopurinoL [Zyloprim] 150 mg PO QDAY 04/16/21 04/16/21 Unknown History Active Medications: Generic Name Dose Route Start Last Admin Trade Name Freq PRN Reason Stop Dose Admin Acetaminophen 650 mg 04/15/21 19:11 04/30/21 20:14 Acetaminophen 325 Mg Tab PO 650 mg Q6H PRN Administration Pain MILD(1-3)/Fever >100.5/SEXTON Acetylcysteine 200 mg 05/09/21 16:00 05/16/21 09:40 Acetylcysteine 20% 200 Mg/1 Ml *For Inhalation Use* INHALATION 05/16/21 15:59 200 mg Q8HRT WOLFGANG Administration Albuterol 2.5 mg 05/09/21 13:16 05/16/21 09:40 Albuterol 2.5 Mg/3 Ml Nebu IH 2.5 mg Q6HRT PRN Administration Shortness Of Breath Amlodipine Besylate 10 mg 04/25/21 10:00 05/16/21 10:02 Amlodipine 10 Mg Tab PO 10 mg DAILY [facility]OLFGANG Administration Lipase/Protease/Amylase 1 each 04/16/21 12:52 Lipase 10,500/Protease 25,000/Amylase 43,750 (Units) Dr Cap FEEDTUBE PRN PRN For Clogged Feeding Tube Aspirin 81 mg 04/25/21 10:00 05/16/21 10:03 Aspirin 81 Mg Tab Chew PO 81 mg QDAY WOLFGANG Administration Bisacodyl 10 mg 04/17/21 11:01 05/03/21 09:50 Bisacodyl 10 Mg Rect Supp [place] 10 mg QDAY PRN Administration Constipation Brimonidine Tartrate 1 drops 04/17/21 22:00 05/16/21 10:05 Brimonidine 0.15% Ophth Soln OU 1 drops BID [facility] Administration Docusate Sodium 100 mg 04/29/21 15:00 05/16/21 10:03 Docusate Sodium 100 Mg/10 Ml Oral Liqd PO 100 mg BID WOLFGANG Administration Famotidine 20 mg 04/17/21 10:00 05/15/21 11:42 Famotidine 20 Mg Tab PO 20 mg DAILY [facility] Administration Fentanyl 50 mcg 05/13/21 09:30 Fentanyl 100 Mcg/2 Ml Inj IV Q10MIN PRN ANALGESIA Heparin Sodium (Porcine) 5,000 unit 04/15/21 22:00 05/16/21 10:03 Heparin 5,000 Unit/1 Ml Vial SUB-Q 5,000 unit Q12HR [facility]OL[facility] Administration Hydralazine HCl 10 mg 04/16/21 18:00 04/24/21 05:25 Hydralazine 20 Mg/1 Ml Inj IV 10 mg Q4HR PRN Administration Hypertension Hydralazine HCl 100 mg 05/15/21 14:00 05/16/21 10:03 Hydralazine 100 Mg Tab PO 100 mg TID [facility] Administration Hydrophilic Ointment 1 applic 04/15/21 17:24 Lip Therapy Vaseline TP Q2HR PRN Dry Lips Fentanyl Citrate 2,000 mcg in 100 mls @ 4.65 mls/hr 05/13/21 10:00 Fentanyl Drip Premix IV TITR [facility]OL[facility] Protocol 1 MCG/KG/HR Insulin Human Isoph/Insulin Regular 25 unit 05/09/21 08:00 05/16/21 10:04 Insulin Nph/Regular 70/30 Inj SUB-Q 25 unit BIDDIAB [facility] Administration Insulin Human Lispro 0 unit 04/16/21 15:00 05/16/21 05:26 Insulin Lispro 100 Unit/Ml SUB-Q Not Given Q6HR [facility] Protocol Latanoprost 1 drops 04/17/21 18:00 05/15/21 17:18 Latanoprost 0.005% Ophth Soln 2.5 Ml OU 1 drops QPM [facility] Administration Levothyroxine Sodium 25 mcg 04/19/21 06:00 05/16/21 05:24 Levothyroxine 25 Mcg Tab PO 25 mcg DAILY@0600 [facility] Administration Lorazepam 2 mg 05/13/21 09:30 Lorazepam 2 Mg/Ml Vial IV Q4H PRN Agitation Metoprolol Tartrate 25 mg 04/19/21 10:00 05/16/21 10:03 Metoprolol Tartrate 25 Mg Tab PO 25 mg BID [facility] Administration Multi-Ingred Cream/Lotion/Oil/Oint 1 applic 04/15/21 17:24 05/16/21 10:04 Mineral Oil/Petrolatum, White Ophth Oint 3.5 Gm OU 1 applic Q4HR PRN Administration Dry Eye(s) Pravastatin Sodium 20 mg 04/19/21 22:00 05/15/21 21:28 Pravastatin 20 Mg Tab PO 20 mg QHS [facility] Administration Scopolamine 1 each 04/20/21 18:00 05/14/21 10:52 Scopolamine Transdermal Patch 72 Hr TD 1 each Q3D [facility] Administration Simple Syrup 15 ml 04/16/21 12:52 Simple Syrup 15 Ml FEEDTUBE PRN PRN Hypoglycemia Simple Syrup 30 ml 04/16/21 12:52 Simple Syrup 15 Ml FEEDTUBE PRN PRN Hypoglycemia Sodium Bicarbonate 325 mg 04/16/21 12:52 Sodium Bicarbonate 325 Mg Tab FEEDTUBE PRN PRN For Clogged Feeding Tube Sodium Chloride 10 ml 04/15/21 22:00 05/15/21 21:28 Sodium Chloride 0.9% 10 Ml Flush Syringe IV 10 ml BID [facility] Administration Sodium Chloride 10 ml 04/15/21 19:11 04/24/21 05:27 Sodium Chloride 0.9% 10 Ml Flush Syringe IV 10 ml PRN PRN Administration LINE FLUSH Tamsulosin HCl 0.4 mg 04/25/21 14:00 05/16/21 10:03 Tamsulosin 0.4 Mg Cap PO 0.4 mg QDAY [facility] Administration Timolol Maleate 1 drops 04/19/21 10:00 05/16/21 10:05 Timolol 0.5% Ophth Soln 5 Ml OU 1 drops QDAY [facility]OL[facility]ANG Administration
--- NOTE | 2021-05-16 13:55 | Progress Note ---
Assessment and Plan Acute respiratory failure, on mechanical ventilatory support. Acute toxic metabolic encephalopathy Hypoglycemia ROJELIO Hyperkalemia Rhabdomyolysis Possible seizure activity DM II HTN CAD Obesity H/O breast cancer H/O TIA Leukocytosis Elevated serum TSH, possible hypothyroidism - kayexalate given for hyperkalemia - observe in ICU overnight as has decompensated on t-piece prior - rest on full support if fails - LTAC evaluation ongoing - continue care as below otherwise; - continue to wean supplemental oxygen for target O2 sat's > 90% acutely - VAP bundle addressed - continue lung protective strategies - continue bronchodilators with pulmonary hygiene per RT - continue Daily SAT and SBT assessment as tolerated - wean per pulmonary driven protocols otherwise - continue accuchecks with glycemic control per SSI (While critically ill target blood glucose of 140-180 mg/dL; avoid hypoglycemia) - sedation prn for target RASS 0 to -1 - avoid nephrotoxins, renally dose all medications - continue to avoid benzodiazepine's, reduce the possibility of delirium - complete AB's per ID rec's re: Cefepime and Flagyl - follow clinically trend fevers / WBC - prn analgesia per CPOT score - Maintenance of sleep-wake cycle, avoid delirium - continue enteral nutritional support at goal rate as tolerated - G.I. & VTE prophylaxis - PT/OT/ROM exercises - continue Flomax re: retention - continue mobility protocols for pressure ulcer prophylaxis - Monitor hemodynamics closely - continue other care per attending / other consultants - discharge planning ongoing concurrently .... Re-evaluate in am & prn CONDITION: CRITICAL PROGNOSIS: GUARDED CODE STATUS: FULL CODE The high probability of a clinically significant, sudden or life-threatening deterioration of the [respiratory, cardiovascular, GI & neurologic] system(s) required my full and direct attention, intervention and personal management. The aggregate critical care time was [32] minutes without overlap. Time includes spent on; [x] Data Review and interpretation [x] Patient assessment and monitoring of vital signs [x] Documentation [x] Medication orders and management Subjective Date of service: 05/16/21 Principal diagnosis: Ac. resp failure; AMS; Hypoglycemia; ROJELIO; Hyperkalemia; DM II Interval history: Patient is seen today for: Acute respiratory failure; AMS; Hypoglycemia; ROJELIO; Hyperkalemia; DM II; H/O breast cancer; Elevated serum TSH, possible hypothyroidism Seen and examined at bedside; 24hour events reviewed; nursing and respiratory care staff consulted; no adverse overnight events reported to me; resting peacefully in bed; completed 24 hours of t-piece and tolerating well; AMS is persistent; hyperkalemia noted Objective Vital Signs - 12hr 05/16/21 05/16/21 05/16/21 02:00 03:00 03:25 Temperature 98.9 F Pulse Rate 73 73 Pulse Rate [ Anterior Bilateral Throughout] Respiratory 20 13 Rate Respiratory Rate [Anterior Bilateral Throughout] Blood Pressure 146/59 129/52 O2 Sat by Pulse 97 99 Oximetry O2 Sat by Pulse Oximetry [ Assessment] 05/16/21 05/16/21 05/16/21 04:00 05:00 05:15 Temperature Pulse Rate 82 83 Pulse Rate [ Anterior Bilateral Throughout] Respiratory 19 22 Rate Respiratory Rate [Anterior Bilateral Throughout] Blood Pressure 122/53 115/96 O2 Sat by Pulse 98 99 98 Oximetry O2 Sat by Pulse Oximetry [ Assessment] 05/16/21 05/16/21 05/16/21 06:08 07:00 08:00 Temperature 99.1 F Pulse Rate 82 75 84 Pulse Rate [ 85 Anterior Bilateral Throughout] Respiratory 25 H 19 29 H Rate Respiratory 22 Rate [Anterior Bilateral Throughout] Blood Pressure 150/56 155/49 O2 Sat by Pulse 99 99 99 Oximetry O2 Sat by Pulse Oximetry [ Assessment] 05/16/21 05/16/21 05/16/21 08:10 09:00 09:16 Temperature Pulse Rate 84 Pulse Rate [ Anterior Bilateral Throughout] Respiratory 27 H Rate Respiratory Rate [Anterior Bilateral Throughout] Blood Pressure 161/46 O2 Sat by Pulse 100 93 Oximetry O2 Sat by Pulse 100 Oximetry [ Assessment] 05/16/21 05/16/21 05/16/21 09:42 10:00 10:02 Temperature Pulse Rate 84 Pulse Rate [ Anterior Bilateral Throughout] Respiratory 25 H Rate Respiratory Rate [Anterior Bilateral Throughout] Blood Pressure 155/44 155/44 O2 Sat by Pulse 100 99 Oximetry O2 Sat by Pulse Oximetry [ Assessment] 05/16/21 05/16/21 10:03 12:00 Temperature 98.2 F Pulse Rate 84 Pulse Rate [ Anterior Bilateral Throughout] Respiratory Rate Respiratory Rate [Anterior Bilateral Throughout] Blood Pressure 155/44 O2 Sat by Pulse Oximetry O2 Sat by Pulse Oximetry [ Assessment] Constitutional: no acute distress, other (elderly obese female with mildly increased respiratory effort at rest on t-piece) Eyes: non-icteric ENT: oropharynx moist, oropharyngeal exudate pre, other (+ midline tracheostomy without bleeding stoma) Neck: supple, no lymphadenopathy, no JVD, other (large circumference) Effort: mildly labored Ascultation: Bilateral: diminished breath sounds, rhonchi (scant) Percussion: Bilateral: not dull Cardiovascular: regular rate and rhythm, other (S1,S2) Gastrointestinal: normoactive bowel sounds, hypoactive bowel sounds, non-tender, non-distended (protuberant) Integumentary: normal Extremities: no cyanosis, no edema, pulses normal, no ischemia or petechiae Neurologic: non-focal exam (tracks voice), pupils equal and round, CN II-XII normal, motor strength normal and Psychiatric: other (falt affect) CBC and BMP: 05/15/21 05:51 05/16/21 06:40 ABG, PT/INR, D-dimer: ABG ABG pH 7.473 (7.320-7.450) H 05/15/21 22:00 POC ABG pCO2 35.5 mmHg (32.0-48.0) 05/15/21 22:00 POC ABG pO2 77.7 mmHg (83-108) L 05/15/21 22:00 POC ABG HCO3 25.4 05/15/21 22:00 ABG O2 Saturation 96.1 (0-100) 05/15/21 22:00 PT/INR, D-dimer PT 14.8 Sec. (12.2-14.9) 05/07/21 08:20 INR 1.11 (0.87-1.13) 05/07/21 08:20 Abnormal lab findings: Abnormal Labs 04/15/21 04/15/21 04/15/21 17:00 17:20 17:20 WBC 11.2 H RBC Hgb Hct 43.0 H MCV MCH RDW 15.3 H Plt Count Lymph % (Auto) 12.8 L [place] % (Auto) [place] # (Auto) Seg Neutrophils % 82.4 H Seg Neuts % (Manual) Lymphocytes % (Manual) Monocytes % (Manual) Seg Neutrophils # 9.3 H Seg Neutrophils # Man Lymphocytes # (Manual) Monocytes # (Manual) ABG pH POC ABG pCO2 POC ABG pO2 ABG Hemoglobin ABG Oxyhemoglobin ABG Sodium ABG Potassium ABG Chloride ABG Glucose Carboxyhemoglobin Sodium 129 L Potassium 7.1 H* Chloride 91.9 L BUN 35 H Creatinine 2.8 H Glucose POC Glucose 191 H Calcium Phosphorus Magnesium AST 69 H ALT Total Creatine Kinase CK-MB (CK-2) Troponin T Total Protein Albumin HDL Cholesterol TSH Free T3 Index Arterial Blood Glucose Arterial Blood Ionized Calcium Urine pH Urine WBC (Auto) Urine Creatinine Acetaminophen Crossmatch 04/15/21 04/15/21 04/15/21 17:20 17:20 17:20 WBC RBC Hgb Hct MCV MCH RDW Plt Count Lymph % (Auto) [place] % (Auto) [place] # (Auto) Seg Neutrophils % Seg Neuts % (Manual) Lymphocytes % (Manual) Monocytes % (Manual) Seg Neutrophils # Seg Neutrophils # Man Lymphocytes # (Manual) Monocytes # (Manual) ABG pH POC ABG pCO2 POC ABG pO2 ABG Hemoglobin ABG Oxyhemoglobin ABG Sodium ABG Potassium ABG Chloride ABG Glucose Carboxyhemoglobin Sodium Potassium Chloride BUN Creatinine Glucose POC Glucose Calcium Phosphorus Magnesium AST ALT Total Creatine Kinase 1000 H CK-MB (CK-2) Troponin T Total Protein Albumin HDL Cholesterol TSH 14.190 H Free T3 Index Arterial Blood Glucose Arterial Blood Ionized Calcium Urine pH Urine WBC (Auto) Urine Creatinine Acetaminophen 5.0 L Crossmatch 04/15/21 04/15/21 04/15/21 20:49 21:23 23:15 WBC RBC Hgb Hct MCV MCH RDW Plt Count Lymph % (Auto) [place] % (Auto) [place] # (Auto) Seg Neutrophils % Seg Neuts % (Manual) Lymphocytes % (Manual) Monocytes % (Manual) Seg Neutrophils # Seg Neutrophils # Man Lymphocytes # (Manual) Monocytes # (Manual) ABG pH 7.557 H POC ABG pCO2 30.0 L POC ABG pO2 493.3 H ABG Hemoglobin ABG Oxyhemoglobin 99.0 H ABG Sodium 131.5 L ABG Potassium 4.7 H ABG Chloride 94.0 L ABG Glucose 218 H Carboxyhemoglobin Sodium Potassium Chloride BUN Creatinine Glucose POC Glucose 173 H 207 H Calcium Phosphorus Magnesium AST ALT Total Creatine Kinase CK-MB (CK-2) Troponin T Total Protein Albumin HDL Cholesterol TSH Free T3 Index Arterial Blood Glucose 218 H Arterial Blood Ionized Calcium 5.4 H Urine pH Urine WBC (Auto) Urine Creatinine Acetaminophen Crossmatch 04/16/21 04/16/21 04/16/21 00:09 00:12 00:19 WBC RBC Hgb Hct MCV MCH RDW Plt Count Lymph % (Auto) [place] % (Auto) [place] # (Auto) Seg Neutrophils % Seg Neuts % (Manual) Lymphocytes % (Manual) Monocytes % (Manual) Seg Neutrophils # Seg Neutrophils # Man Lymphocytes # (Manual) Monocytes # (Manual) ABG pH POC ABG pCO2 POC ABG pO2 ABG Hemoglobin ABG Oxyhemoglobin ABG Sodium ABG Potassium ABG Chloride ABG Glucose Carboxyhemoglobin Sodium Potassium 6.7 H* Chloride BUN Creatinine Glucose POC Glucose Calcium Phosphorus Magnesium AST ALT Total Creatine Kinase CK-MB (CK-2) Troponin T Total Protein Albumin HDL Cholesterol TSH Free T3 Index Arterial Blood Glucose Arterial Blood Ionized Calcium Urine pH 9.0 H Urine WBC (Auto) Urine Creatinine 24.4 H Acetaminophen Crossmatch 04/16/21 04/16/21 04/16/21 03:43 03:55 05:02 WBC 21.2 H RBC Hgb Hct 43.4 H MCV 98 H MCH RDW Plt Count Lymph % (Auto) [place] % (Auto) [place] # (Auto) Seg Neutrophils % Seg Neuts % (Manual) 84.0 H Lymphocytes % (Manual) 2.0 L Monocytes % (Manual) 10.0 H Seg Neutrophils # Seg Neutrophils # Man 17.8 H Lymphocytes # (Manual) 0.4 L Monocytes # (Manual) 2.1 H ABG pH 7.461 H POC ABG pCO2 POC ABG pO2 ABG Hemoglobin ABG Oxyhemoglobin ABG Sodium 126.8 L ABG Potassium 5.4 H ABG Chloride 90.0 L ABG Glucose 325 H Carboxyhemoglobin Sodium Potassium Chloride BUN Creatinine Glucose POC Glucose 391 H Calcium Phosphorus Magnesium AST ALT Total Creatine Kinase CK-MB (CK-2) Troponin T Total Protein Albumin HDL Cholesterol TSH Free T3 Index Arterial Blood Glucose 325 H Arterial Blood Ionized Calcium Urine pH Urine WBC (Auto) Urine Creatinine Acetaminophen Crossmatch 04/16/21 04/16/21 04/16/21 05:02 11:34 16:09 WBC RBC Hgb Hct MCV MCH RDW Plt Count Lymph % (Auto) [place] % (Auto) [place] # (Auto) Seg Neutrophils % Seg Neuts % (Manual) Lymphocytes % (Manual) Monocytes % (Manual) Seg Neutrophils # Seg Neutrophils # Man Lymphocytes # (Manual) Monocytes # (Manual) ABG pH POC ABG pCO2 POC ABG pO2 ABG Hemoglobin ABG Oxyhemoglobin ABG Sodium ABG Potassium ABG Chloride ABG Glucose Carboxyhemoglobin Sodium 131 L Potassium 5.9 H Chloride 88.7 L BUN 34 H Creatinine 2.9 H Glucose 249 H POC Glucose 382 H 300 H Calcium 10.4 H Phosphorus Magnesium AST 65 H ALT Total Creatine Kinase CK-MB (CK-2) Troponin T Total Protein Albumin 3.8 L HDL Cholesterol TSH Free T3 Index Arterial Blood Glucose Arterial Blood Ionized Calcium Urine pH Urine WBC (Auto) Urine Creatinine Acetaminophen Crossmatch 04/16/21 04/16/21 04/16/21 18:15 19:01 19:01 WBC RBC Hgb Hct MCV MCH RDW Plt Count Lymph % (Auto) [place] % (Auto) [place] # (Auto) Seg Neutrophils % Seg Neuts % (Manual) Lymphocytes % (Manual) Monocytes % (Manual) Seg Neutrophils # Seg Neutrophils # Man Lymphocytes # (Manual) Monocytes # (Manual) ABG pH POC ABG pCO2 POC ABG pO2 ABG Hemoglobin ABG Oxyhemoglobin ABG Sodium ABG Potassium ABG Chloride ABG Glucose Carboxyhemoglobin Sodium 125 L Potassium 5.5 H Chloride 84.5 L BUN 37 H Creatinine 3.5 H Glucose 236 H POC Glucose 287 H Calcium Phosphorus Magnesium AST ALT Total Creatine Kinase CK-MB (CK-2) Troponin T Total Protein Albumin HDL Cholesterol TSH Free T3 Index 1.1 L Arterial Blood Glucose Arterial Blood Ionized Calcium Urine pH Urine WBC (Auto) Urine Creatinine Acetaminophen Crossmatch 04/16/21 04/16/21 04/17/21 19:01 23:48 03:09 WBC RBC Hgb Hct MCV MCH RDW Plt Count Lymph % (Auto) [place] % (Auto) [place] # (Auto) Seg Neutrophils % Seg Neuts % (Manual) Lymphocytes % (Manual) Monocytes % (Manual) Seg Neutrophils # Seg Neutrophils # Man Lymphocytes # (Manual) Monocytes # (Manual) ABG pH 7.518 H POC ABG pCO2 POC ABG pO2 ABG Hemoglobin ABG Oxyhemoglobin ABG Sodium 126.4 L ABG Potassium ABG Chloride 89.0 L ABG Glucose 200 H Carboxyhemoglobin Sodium Potassium 5.6 H Chloride BUN Creatinine Glucose POC Glucose 243 H Calcium Phosphorus Magnesium AST ALT Total Creatine Kinase CK-MB (CK-2) Troponin T Total Protein Albumin HDL Cholesterol TSH Free T3 Index Arterial Blood Glucose 200 H Arterial Blood Ionized Calcium 4.4 L Urine pH Urine WBC (Auto) Urine Creatinine Acetaminophen Crossmatch 04/17/21 04/17/21 04/17/21 05:04 06:14 11:55 WBC RBC Hgb Hct MCV MCH RDW Plt Count Lymph % (Auto) [place] % (Auto) [place] # (Auto) Seg Neutrophils % Seg Neuts % (Manual) Lymphocytes % (Manual) Monocytes % (Manual) Seg Neutrophils # Seg Neutrophils # Man Lymphocytes # (Manual) Monocytes # (Manual) ABG pH POC ABG pCO2 POC ABG pO2 ABG Hemoglobin ABG Oxyhemoglobin ABG Sodium ABG Potassium ABG Chloride ABG Glucose Carboxyhemoglobin Sodium 129 L Potassium Chloride 86.1 L BUN 39 H Creatinine 3.5 H Glucose 202 H POC Glucose 208 H 276 H Calcium Phosphorus Magnesium AST ALT Total Creatine Kinase 750 H CK-MB (CK-2) Troponin T 0.119 H* D Total Protein Albumin HDL Cholesterol 61 H TSH Free T3 Index Arterial Blood Glucose Arterial Blood Ionized Calcium Urine pH Urine WBC (Auto) Urine Creatinine Acetaminophen Crossmatch 04/17/21 04/17/21 04/17/21 15:35 15:35 17:07 WBC 17.1 H RBC Hgb Hct MCV MCH RDW Plt Count Lymph % (Auto) [place] % (Auto) [place] # (Auto) Seg Neutrophils % Seg Neuts % (Manual) Lymphocytes % (Manual) Monocytes % (Manual) Seg Neutrophils # Seg Neutrophils # Man Lymphocytes # (Manual) Monocytes # (Manual) ABG pH POC ABG pCO2 POC ABG pO2 ABG Hemoglobin ABG Oxyhemoglobin ABG Sodium ABG Potassium ABG Chloride ABG Glucose Carboxyhemoglobin Sodium Potassium Chloride BUN Creatinine Glucose POC Glucose 148 H Calcium Phosphorus Magnesium AST ALT Total Creatine Kinase 615 H CK-MB (CK-2) 9.1 H Troponin T Total Protein Albumin HDL Cholesterol TSH Free T3 Index Arterial Blood Glucose Arterial Blood Ionized Calcium Urine pH Urine WBC (Auto) Urine Creatinine Acetaminophen Crossmatch 04/18/21 04/18/21 04/18/21 00:01 03:00 05:24 WBC RBC Hgb Hct MCV MCH RDW Plt Count Lymph % (Auto) [place] % (Auto) [place] # (Auto) Seg Neutrophils % Seg Neuts % (Manual) Lymphocytes % (Manual) Monocytes % (Manual) Seg Neutrophils # Seg Neutrophils # Man Lymphocytes # (Manual) Monocytes # (Manual) ABG pH 7.497 H POC ABG pCO2 POC ABG pO2 77.7 L ABG Hemoglobin 10.4 L ABG Oxyhemoglobin ABG Sodium 129.7 L ABG Potassium 2.8 L ABG Chloride 92.0 L ABG Glucose 134 H Carboxyhemoglobin 0.3 L Sodium Potassium Chloride BUN Creatinine Glucose POC Glucose 192 H 162 H Calcium Phosphorus Magnesium AST ALT Total Creatine Kinase CK-MB (CK-2) Troponin T Total Protein Albumin HDL Cholesterol TSH Free T3 Index Arterial Blood Glucose 134 H Arterial Blood Ionized Calcium 4.3 L Urine pH Urine WBC (Auto) Urine Creatinine Acetaminophen Crossmatch 04/18/21 04/18/21 04/18/21 05:34 05:34 05:43 WBC 15.3 H RBC 3.34 L Hgb Hct MCV MCH RDW 15.3 H Plt Count Lymph % (Auto) [place] % (Auto) [place] # (Auto) Seg Neutrophils % Seg Neuts % (Manual) Lymphocytes % (Manual) Monocytes % (Manual) Seg Neutrophils # Seg Neutrophils # Man Lymphocytes # (Manual) Monocytes # (Manual) ABG pH POC ABG pCO2 POC ABG pO2 ABG Hemoglobin ABG Oxyhemoglobin ABG Sodium ABG Potassium ABG Chloride ABG Glucose Carboxyhemoglobin Sodium 134 L Potassium 3.0 L D Chloride 93.5 L BUN 42 H Creatinine 3.1 H Glucose 152 H POC Glucose Calcium Phosphorus Magnesium 1.40 L AST ALT Total Creatine Kinase 427 H CK-MB (CK-2) Troponin T 0.081 H D Total Protein Albumin HDL Cholesterol TSH Free T3 Index Arterial Blood Glucose Arterial Blood Ionized Calcium Urine pH Urine WBC (Auto) Urine Creatinine Acetaminophen Crossmatch 04/18/21 04/18/21 04/18/21 09:11 11:34 17:24 WBC RBC Hgb Hct MCV MCH RDW Plt Count Lymph % (Auto) [place] % (Auto) [place] # (Auto) Seg Neutrophils % Seg Neuts % (Manual) Lymphocytes % (Manual) Monocytes % (Manual) Seg Neutrophils # Seg Neutrophils # Man Lymphocytes # (Manual) Monocytes # (Manual) ABG pH POC ABG pCO2 POC ABG pO2 ABG Hemoglobin ABG Oxyhemoglobin ABG Sodium ABG Potassium ABG Chloride ABG Glucose Carboxyhemoglobin Sodium Potassium Chloride BUN Creatinine Glucose POC Glucose 170 H 151 H Calcium Phosphorus Magnesium AST ALT Total Creatine Kinase CK-MB (CK-2) Troponin T Total Protein Albumin HDL Cholesterol TSH Free T3 Index Arterial Blood Glucose Arterial Blood Ionized Calcium Urine pH Urine WBC (Auto) 34.0 H Urine Creatinine Acetaminophen Crossmatch 04/18/21 04/19/21 04/19/21 23:18 04:09 05:19 WBC RBC Hgb Hct MCV MCH RDW Plt Count Lymph % (Auto) [place] % (Auto) [place] # (Auto) Seg Neutrophils % Seg Neuts % (Manual) Lymphocytes % (Manual) Monocytes % (Manual) Seg Neutrophils # Seg Neutrophils # Man Lymphocytes # (Manual) Monocytes # (Manual) ABG pH 7.476 H POC ABG pCO2 POC ABG pO2 79.4 L ABG Hemoglobin 10.7 L ABG Oxyhemoglobin ABG Sodium 131.2 L ABG Potassium 2.8 L ABG Chloride 94.0 L ABG Glucose 209 H Carboxyhemoglobin 0.3 L Sodium Potassium Chloride BUN Creatinine Glucose POC Glucose 182 H 204 H Calcium Phosphorus Magnesium AST ALT Total Creatine Kinase CK-MB (CK-2) Troponin T Total Protein Albumin HDL Cholesterol TSH Free T3 Index Arterial Blood Glucose 209 H Arterial Blood Ionized Calcium Urine pH Urine WBC (Auto) Urine Creatinine Acetaminophen Crossmatch 04/19/21 04/19/21 04/19/21 07:30 07:30 10:35 WBC 14.8 H RBC 3.20 L Hgb Hct MCV 98 H MCH RDW Plt Count 137 L Lymph % (Auto) [place] % (Auto) [place] # (Auto) Seg Neutrophils % Seg Neuts % (Manual) Lymphocytes % (Manual) Monocytes % (Manual) Seg Neutrophils # Seg Neutrophils # Man Lymphocytes # (Manual) Monocytes # (Manual) ABG pH 7.464 H POC ABG pCO2 POC ABG pO2 81.8 L ABG Hemoglobin 10.8 L ABG Oxyhemoglobin ABG Sodium 129.6 L ABG Potassium ABG Chloride 95.0 L ABG Glucose 238 H Carboxyhemoglobin Sodium 133 L Potassium 2.8 L* Chloride 94.4 L BUN 43 H Creatinine 2.7 H Glucose 255 H POC Glucose Calcium 8.0 L Phosphorus Magnesium AST ALT Total Creatine Kinase CK-MB (CK-2) Troponin T 0.060 H D Total Protein Albumin HDL Cholesterol TSH Free T3 Index Arterial Blood Glucose 238 H Arterial Blood Ionized Calcium Urine pH Urine WBC (Auto) Urine Creatinine Acetaminophen Crossmatch 04/19/21 04/19/21 04/19/21 11:48 20:40 23:04 WBC RBC Hgb Hct MCV MCH RDW Plt Count Lymph % (Auto) [place] % (Auto) [place] # (Auto) Seg Neutrophils % Seg Neuts % (Manual) Lymphocytes % (Manual) Monocytes % (Manual) Seg Neutrophils # Seg Neutrophils # Man Lymphocytes # (Manual) Monocytes # (Manual) ABG pH POC ABG pCO2 POC ABG pO2 ABG Hemoglobin ABG Oxyhemoglobin ABG Sodium ABG Potassium ABG Chloride ABG Glucose Carboxyhemoglobin Sodium Potassium 3.4 L D Chloride BUN Creatinine Glucose POC Glucose 208 H 173 H Calcium Phosphorus Magnesium AST ALT Total Creatine Kinase CK-MB (CK-2) Troponin T Total Protein Albumin HDL Cholesterol TSH Free T3 Index Arterial Blood Glucose Arterial Blood Ionized Calcium Urine pH Urine WBC (Auto) Urine Creatinine Acetaminophen Crossmatch 04/20/21 04/20/21 04/20/21 02:56 03:32 03:32 WBC 13.2 H RBC 3.18 L Hgb Hct MCV MCH RDW Plt Count Lymph % (Auto) [place] % (Auto) [place] # (Auto) Seg Neutrophils % Seg Neuts % (Manual) Lymphocytes % (Manual) Monocytes % (Manual) Seg Neutrophils # Seg Neutrophils # Man Lymphocytes # (Manual) Monocytes # (Manual) ABG pH 7.526 H POC ABG pCO2 POC ABG pO2 ABG Hemoglobin 10.5 L ABG Oxyhemoglobin ABG Sodium 133.5 L ABG Potassium ABG Chloride ABG Glucose 157 H Carboxyhemoglobin 0.3 L Sodium 135 L Potassium Chloride 96.7 L BUN 40 H Creatinine 2.3 H Glucose 142 H POC Glucose Calcium Phosphorus Magnesium AST ALT Total Creatine Kinase CK-MB (CK-2) Troponin T 0.065 H Total Protein Albumin HDL Cholesterol TSH Free T3 Index Arterial Blood Glucose 157 H Arterial Blood Ionized Calcium Urine pH Urine WBC (Auto) Urine Creatinine Acetaminophen Crossmatch 04/20/21 04/20/21 04/20/21 03:46 05:42 11:50 WBC RBC Hgb Hct MCV MCH RDW Plt Count Lymph % (Auto) [place] % (Auto) [place] # (Auto) Seg Neutrophils % Seg Neuts % (Manual) Lymphocytes % (Manual) Monocytes % (Manual) Seg Neutrophils # Seg Neutrophils # Man Lymphocytes # (Manual) Monocytes # (Manual) ABG pH POC ABG pCO2 POC ABG pO2 ABG Hemoglobin ABG Oxyhemoglobin ABG Sodium ABG Potassium ABG Chloride ABG Glucose Carboxyhemoglobin Sodium Potassium Chloride BUN Creatinine Glucose POC Glucose 160 H 194 H Calcium Phosphorus 2.10 L Magnesium AST ALT Total Creatine Kinase CK-MB (CK-2) Troponin T Total Protein Albumin HDL Cholesterol TSH Free T3 Index Arterial Blood Glucose Arterial Blood Ionized Calcium Urine pH Urine WBC (Auto) Urine Creatinine Acetaminophen Crossmatch 04/20/21 04/20/21 04/21/21 17:09 23:18 05:26 WBC RBC Hgb Hct MCV MCH RDW Plt Count Lymph % (Auto) [place] % (Auto) [place] # (Auto) Seg Neutrophils % Seg Neuts % (Manual) Lymphocytes % (Manual) Monocytes % (Manual) Seg Neutrophils # Seg Neutrophils # Man Lymphocytes # (Manual) Monocytes # (Manual) ABG pH POC ABG pCO2 POC ABG pO2 ABG Hemoglobin ABG Oxyhemoglobin ABG Sodium ABG Potassium ABG Chloride ABG Glucose Carboxyhemoglobin Sodium Potassium Chloride BUN Creatinine Glucose POC Glucose 153 H 162 H 164 H Calcium Phosphorus Magnesium AST ALT Total Creatine Kinase CK-MB (CK-2) Troponin T Total Protein Albumin HDL Cholesterol TSH Free T3 Index Arterial Blood Glucose Arterial Blood Ionized Calcium Urine pH Urine WBC (Auto) Urine Creatinine Acetaminophen Crossmatch 04/21/21 04/21/21 04/21/21 05:51 05:51 12:12 WBC RBC 3.20 L Hgb Hct MCV 99 H MCH RDW 15.3 H Plt Count Lymph % (Auto) [place] % (Auto) [place] # (Auto) Seg Neutrophils % Seg Neuts % (Manual) Lymphocytes % (Manual) Monocytes % (Manual) Seg Neutrophils # Seg Neutrophils # Man Lymphocytes # (Manual) Monocytes # (Manual) ABG pH POC ABG pCO2 POC ABG pO2 ABG Hemoglobin ABG Oxyhemoglobin ABG Sodium ABG Potassium ABG Chloride ABG Glucose Carboxyhemoglobin Sodium Potassium Chloride 96.6 L BUN 42 H Creatinine 2.1 H Glucose 171 H POC Glucose 167 H Calcium Phosphorus Magnesium AST ALT Total Creatine Kinase CK-MB (CK-2) Troponin T Total Protein Albumin HDL Cholesterol TSH Free T3 Index Arterial Blood Glucose Arterial Blood Ionized Calcium Urine pH Urine WBC (Auto) Urine Creatinine Acetaminophen Crossmatch 04/21/21 04/21/21 04/22/21 17:13 23:42 05:29 WBC RBC Hgb Hct MCV MCH RDW Plt Count Lymph % (Auto) [place] % (Auto) [place] # (Auto) Seg Neutrophils % Seg Neuts % (Manual) Lymphocytes % (Manual) Monocytes % (Manual) Seg Neutrophils # Seg Neutrophils # Man Lymphocytes # (Manual) Monocytes # (Manual) ABG pH POC ABG pCO2 POC ABG pO2 ABG Hemoglobin ABG Oxyhemoglobin ABG Sodium ABG Potassium ABG Chloride ABG Glucose Carboxyhemoglobin Sodium Potassium Chloride BUN Creatinine Glucose POC Glucose 178 H 253 H 208 H Calcium Phosphorus Magnesium AST ALT Total Creatine Kinase CK-MB (CK-2) Troponin T Total Protein Albumin HDL Cholesterol TSH Free T3 Index Arterial Blood Glucose Arterial Blood Ionized Calcium Urine pH Urine WBC (Auto) Urine Creatinine Acetaminophen Crossmatch 04/22/21 04/22/21 04/22/21 08:00 08:00 12:06 WBC 12.9 H RBC Hgb Hct MCV MCH RDW Plt Count Lymph % (Auto) [place] % (Auto) [place] # (Auto) Seg Neutrophils % Seg Neuts % (Manual) Lymphocytes % (Manual) Monocytes % (Manual) Seg Neutrophils # Seg Neutrophils # Man Lymphocytes # (Manual) Monocytes # (Manual) ABG pH POC ABG pCO2 POC ABG pO2 ABG Hemoglobin ABG Oxyhemoglobin ABG Sodium ABG Potassium ABG Chloride ABG Glucose Carboxyhemoglobin Sodium Potassium Chloride BUN 47 H Creatinine 1.9 H Glucose 252 H POC Glucose 298 H Calcium Phosphorus Magnesium AST ALT Total Creatine Kinase CK-MB (CK-2) Troponin T Total Protein Albumin HDL Cholesterol TSH Free T3 Index Arterial Blood Glucose Arterial Blood Ionized Calcium Urine pH Urine WBC (Auto) Urine Creatinine Acetaminophen Crossmatch 04/22/21 04/22/21 04/23/21 17:34 23:01 05:08 WBC RBC Hgb Hct MCV MCH RDW Plt Count Lymph % (Auto) [place] % (Auto) [place] # (Auto) Seg Neutrophils % Seg Neuts % (Manual) Lymphocytes % (Manual) Monocytes % (Manual) Seg Neutrophils # Seg Neutrophils # Man Lymphocytes # (Manual) Monocytes # (Manual) ABG pH POC ABG pCO2 POC ABG pO2 ABG Hemoglobin ABG Oxyhemoglobin ABG Sodium ABG Potassium ABG Chloride ABG Glucose Carboxyhemoglobin Sodium Potassium Chloride BUN Creatinine Glucose POC Glucose 259 H 280 H 223 H Calcium Phosphorus Magnesium AST ALT Total Creatine Kinase CK-MB (CK-2) Troponin T Total Protein Albumin HDL Cholesterol TSH Free T3 Index Arterial Blood Glucose Arterial Blood Ionized Calcium Urine pH Urine WBC (Auto) Urine Creatinine Acetaminophen Crossmatch 04/23/21 04/23/21 04/23/21 07:02 11:57 17:33 WBC RBC Hgb Hct MCV MCH RDW Plt Count Lymph % (Auto) [place] % (Auto) [place] # (Auto) Seg Neutrophils % Seg Neuts % (Manual) Lymphocytes % (Manual) Monocytes % (Manual) Seg Neutrophils # Seg Neutrophils # Man Lymphocytes # (Manual) Monocytes # (Manual) ABG pH POC ABG pCO2 POC ABG pO2 ABG Hemoglobin ABG Oxyhemoglobin ABG Sodium ABG Potassium ABG Chloride ABG Glucose Carboxyhemoglobin Sodium Potassium Chloride 97.7 L BUN 57 H Creatinine 2.0 H Glucose 253 H POC Glucose 310 H 235 H Calcium Phosphorus Magnesium AST ALT Total Creatine Kinase CK-MB (CK-2) Troponin T Total Protein Albumin HDL Cholesterol TSH Free T3 Index Arterial Blood Glucose Arterial Blood Ionized Calcium Urine pH Urine WBC (Auto) Urine Creatinine Acetaminophen Crossmatch 04/23/21 04/24/21 04/24/21 23:15 05:23 05:46 WBC RBC Hgb Hct MCV MCH RDW Plt Count Lymph % (Auto) [place] % (Auto) [place] # (Auto) Seg Neutrophils % Seg Neuts % (Manual) Lymphocytes % (Manual) Monocytes % (Manual) Seg Neutrophils # Seg Neutrophils # Man Lymphocytes # (Manual) Monocytes # (Manual) ABG pH POC ABG pCO2 POC ABG pO2 ABG Hemoglobin ABG Oxyhemoglobin ABG Sodium ABG Potassium ABG Chloride ABG Glucose Carboxyhemoglobin Sodium Potassium 5.2 H D Chloride BUN 68 H Creatinine 2.3 H Glucose 277 H POC Glucose 197 H 274 H Calcium Phosphorus Magnesium AST ALT Total Creatine Kinase CK-MB (CK-2) Troponin T Total Protein Albumin HDL Cholesterol TSH Free T3 Index Arterial Blood Glucose Arterial Blood Ionized Calcium Urine pH Urine WBC (Auto) Urine Creatinine Acetaminophen Crossmatch 04/24/21 04/24/21 04/24/21 11:33 11:52 17:49 WBC RBC Hgb Hct MCV MCH RDW Plt Count Lymph % (Auto) [place] % (Auto) [place] # (Auto) Seg Neutrophils % Seg Neuts % (Manual) Lymphocytes % (Manual) Monocytes % (Manual) Seg Neutrophils # Seg Neutrophils # Man Lymphocytes # (Manual) Monocytes # (Manual) ABG pH POC ABG pCO2 POC ABG pO2 72.7 L ABG Hemoglobin 11.6 L ABG Oxyhemoglobin 92.9 L ABG Sodium ABG Potassium ABG Chloride ABG Glucose 269 H Carboxyhemoglobin Sodium Potassium Chloride BUN Creatinine Glucose POC Glucose 223 H 252 H Calcium Phosphorus Magnesium AST ALT Total Creatine Kinase CK-MB (CK-2) Troponin T Total Protein Albumin HDL Cholesterol TSH Free T3 Index Arterial Blood Glucose 269 H Arterial Blood Ionized Calcium Urine pH Urine WBC (Auto) Urine Creatinine Acetaminophen Crossmatch 04/24/21 04/24/21 04/25/21 21:00 23:48 03:06 WBC RBC Hgb Hct MCV MCH RDW Plt Count Lymph % (Auto) [place] % (Auto) [place] # (Auto) Seg Neutrophils % Seg Neuts % (Manual) Lymphocytes % (Manual) Monocytes % (Manual) Seg Neutrophils # Seg Neutrophils # Man Lymphocytes # (Manual) Monocytes # (Manual) ABG pH 7.521 H 7.451 H POC ABG pCO2 POC ABG pO2 80.7 L 77.1 L ABG Hemoglobin 10.4 L 11.2 L ABG Oxyhemoglobin ABG Sodium ABG Potassium ABG Chloride ABG Glucose 186 H 165 H Carboxyhemoglobin 0 L Sodium Potassium Chloride BUN Creatinine Glucose POC Glucose 141 H Calcium Phosphorus Magnesium AST ALT Total Creatine Kinase CK-MB (CK-2) Troponin T Total Protein Albumin HDL Cholesterol TSH Free T3 Index Arterial Blood Glucose 186 H 165 H Arterial Blood Ionized Calcium Urine pH Urine WBC (Auto) Urine Creatinine Acetaminophen Crossmatch 04/25/21 04/25/21 04/25/21 03:56 03:56 06:03 WBC 12.3 H RBC 3.40 L Hgb Hct MCV MCH RDW Plt Count Lymph % (Auto) [place] % (Auto) [place] # (Auto) Seg Neutrophils % Seg Neuts % (Manual) Lymphocytes % (Manual) Monocytes % (Manual) Seg Neutrophils # Seg Neutrophils # Man Lymphocytes # (Manual) Monocytes # (Manual) ABG pH POC ABG pCO2 POC ABG pO2 ABG Hemoglobin ABG Oxyhemoglobin ABG Sodium ABG Potassium ABG Chloride ABG Glucose Carboxyhemoglobin Sodium Potassium Chloride BUN 78 H Creatinine 2.5 H Glucose 152 H POC Glucose 171 H Calcium Phosphorus Magnesium AST ALT Total Creatine Kinase CK-MB (CK-2) Troponin T Total Protein Albumin HDL Cholesterol TSH Free T3 Index Arterial Blood Glucose Arterial Blood Ionized Calcium Urine pH Urine WBC (Auto) Urine Creatinine Acetaminophen Crossmatch 04/25/21 04/25/21 04/26/21 11:43 15:37 00:05 WBC RBC Hgb Hct MCV MCH RDW Plt Count Lymph % (Auto) [place] % (Auto) [place] # (Auto) Seg Neutrophils % Seg Neuts % (Manual) Lymphocytes % (Manual) Monocytes % (Manual) Seg Neutrophils # Seg Neutrophils # Man Lymphocytes # (Manual) Monocytes # (Manual) ABG pH POC ABG pCO2 POC ABG pO2 ABG Hemoglobin ABG Oxyhemoglobin ABG Sodium ABG Potassium ABG Chloride ABG Glucose Carboxyhemoglobin Sodium Potassium Chloride BUN Creatinine Glucose POC Glucose 181 H 167 H 144 H Calcium Phosphorus Magnesium AST ALT Total Creatine Kinase CK-MB (CK-2) Troponin T Total Protein Albumin HDL Cholesterol TSH Free T3 Index Arterial Blood Glucose Arterial Blood Ionized Calcium Urine pH Urine WBC (Auto) Urine Creatinine Acetaminophen Crossmatch 04/26/21 04/26/21 04/26/21 04:30 05:44 09:30 WBC RBC Hgb Hct MCV MCH RDW Plt Count Lymph % (Auto) [place] % (Auto) [place] # (Auto) Seg Neutrophils % Seg Neuts % (Manual) Lymphocytes % (Manual) Monocytes % (Manual) Seg Neutrophils # Seg Neutrophils # Man Lymphocytes # (Manual) Monocytes # (Manual) ABG pH 7.529 H POC ABG pCO2 POC ABG pO2 66.1 L ABG Hemoglobin 11.2 L ABG Oxyhemoglobin 92.8 L ABG Sodium ABG Potassium ABG Chloride ABG Glucose 216 H Carboxyhemoglobin 0.3 L Sodium Potassium Chloride BUN 82 H Creatinine 2.7 H Glucose 238 H POC Glucose 202 H Calcium Phosphorus Magnesium AST ALT Total Creatine Kinase CK-MB (CK-2) Troponin T Total Protein Albumin HDL Cholesterol TSH Free T3 Index Arterial Blood Glucose 216 H Arterial Blood Ionized Calcium Urine pH Urine WBC (Auto) Urine Creatinine Acetaminophen Crossmatch 04/26/21 04/26/21 04/26/21 09:30 11:32 17:21 WBC 24.7 H RBC 3.32 L Hgb Hct MCV MCH RDW Plt Count Lymph % (Auto) [place] % (Auto) [place] # (Auto) Seg Neutrophils % Seg Neuts % (Manual) Lymphocytes % (Manual) Monocytes % (Manual) Seg Neutrophils # Seg Neutrophils # Man Lymphocytes # (Manual) Monocytes # (Manual) ABG pH POC ABG pCO2 POC ABG pO2 ABG Hemoglobin ABG Oxyhemoglobin ABG Sodium ABG Potassium ABG Chloride ABG Glucose Carboxyhemoglobin Sodium Potassium Chloride BUN Creatinine Glucose POC Glucose 245 H 264 H Calcium Phosphorus Magnesium AST ALT Total Creatine Kinase CK-MB (CK-2) Troponin T Total Protein Albumin HDL Cholesterol TSH Free T3 Index Arterial Blood Glucose Arterial Blood Ionized Calcium Urine pH Urine WBC (Auto) Urine Creatinine Acetaminophen Crossmatch 04/26/21 04/27/21 04/27/21 23:18 04:23 04:54 WBC RBC Hgb Hct MCV MCH RDW Plt Count Lymph % (Auto) [place] % (Auto) [place] # (Auto) Seg Neutrophils % Seg Neuts % (Manual) Lymphocytes % (Manual) Monocytes % (Manual) Seg Neutrophils # Seg Neutrophils # Man Lymphocytes # (Manual) Monocytes # (Manual) ABG pH 7.549 H POC ABG pCO2 30.0 L POC ABG pO2 64.9 L ABG Hemoglobin 11 L ABG Oxyhemoglobin 93.3 L ABG Sodium ABG Potassium ABG Chloride ABG Glucose 325 H Carboxyhemoglobin 0.3 L Sodium Potassium Chloride BUN Creatinine Glucose POC Glucose 201 H 298 H Calcium Phosphorus Magnesium AST ALT Total Creatine Kinase CK-MB (CK-2) Troponin T Total Protein Albumin HDL Cholesterol TSH Free T3 Index Arterial Blood Glucose 325 H Arterial Blood Ionized Calcium Urine pH Urine WBC (Auto) Urine Creatinine Acetaminophen Crossmatch 04/27/21 04/27/21 04/27/21 07:52 07:52 11:22 WBC 23.0 H RBC 3.32 L Hgb Hct MCV MCH RDW 15.5 H Plt Count Lymph % (Auto) [place] % (Auto) [place] # (Auto) Seg Neutrophils % Seg Neuts % (Manual) Lymphocytes % (Manual) Monocytes % (Manual) Seg Neutrophils # Seg Neutrophils # Man Lymphocytes # (Manual) Monocytes # (Manual) ABG pH POC ABG pCO2 POC ABG pO2 ABG Hemoglobin ABG Oxyhemoglobin ABG Sodium ABG Potassium ABG Chloride ABG Glucose Carboxyhemoglobin Sodium Potassium 3.5 L Chloride BUN 90 H Creatinine 2.8 H Glucose 286 H POC Glucose 251 H Calcium Phosphorus Magnesium AST ALT Total Creatine Kinase CK-MB (CK-2) Troponin T Total Protein Albumin HDL Cholesterol TSH Free T3 Index Arterial Blood Glucose Arterial Blood Ionized Calcium Urine pH Urine WBC (Auto) Urine Creatinine Acetaminophen Crossmatch 04/27/21 04/27/21 04/27/21 17:21 17:45 23:05 WBC RBC Hgb Hct MCV MCH RDW Plt Count Lymph % (Auto) [place] % (Auto) [place] # (Auto) Seg Neutrophils % Seg Neuts % (Manual) Lymphocytes % (Manual) Monocytes % (Manual) Seg Neutrophils # Seg Neutrophils # Man Lymphocytes # (Manual) Monocytes # (Manual) ABG pH POC ABG pCO2 POC ABG pO2 ABG Hemoglobin ABG Oxyhemoglobin ABG Sodium ABG Potassium ABG Chloride ABG Glucose Carboxyhemoglobin Sodium Potassium Chloride BUN Creatinine Glucose POC Glucose 180 H 178 H 189 H Calcium Phosphorus Magnesium AST ALT Total Creatine Kinase CK-MB (CK-2) Troponin T Total Protein Albumin HDL Cholesterol TSH Free T3 Index Arterial Blood Glucose Arterial Blood Ionized Calcium Urine pH Urine WBC (Auto) Urine Creatinine Acetaminophen Crossmatch 04/28/21 04/28/21 04/28/21 03:14 04:13 04:13 WBC 17.6 H RBC 3.03 L Hgb 9.7 L Hct 29.5 L MCV MCH RDW Plt Count Lymph % (Auto) [place] % (Auto) [place] # (Auto) Seg Neutrophils % Seg Neuts % (Manual) Lymphocytes % (Manual) Monocytes % (Manual) Seg Neutrophils # Seg Neutrophils # Man Lymphocytes # (Manual) Monocytes # (Manual) ABG pH 7.507 H POC ABG pCO2 POC ABG pO2 62.0 L ABG Hemoglobin 10.2 L ABG Oxyhemoglobin 91.9 L ABG Sodium ABG Potassium ABG Chloride ABG Glucose 337 H Carboxyhemoglobin 0.2 L Sodium Potassium Chloride BUN 101 H Creatinine 3.1 H Glucose 304 H POC Glucose Calcium Phosphorus Magnesium AST 61 H ALT 64 H Total Creatine Kinase CK-MB (CK-2) Troponin T Total Protein 6.2 L Albumin 2.6 L HDL Cholesterol TSH Free T3 Index Arterial Blood Glucose 337 H Arterial Blood Ionized Calcium Urine pH Urine WBC (Auto) Urine Creatinine Acetaminophen Crossmatch 04/28/21 04/28/21 04/28/21 05:01 11:28 18:23 WBC RBC Hgb Hct MCV MCH RDW Plt Count Lymph % (Auto) [place] % (Auto) [place] # (Auto) Seg Neutrophils % Seg Neuts % (Manual) Lymphocytes % (Manual) Monocytes % (Manual) Seg Neutrophils # Seg Neutrophils # Man Lymphocytes # (Manual) Monocytes # (Manual) ABG pH POC ABG pCO2 POC ABG pO2 ABG Hemoglobin ABG Oxyhemoglobin ABG Sodium ABG Potassium ABG Chloride ABG Glucose Carboxyhemoglobin Sodium Potassium Chloride BUN Creatinine Glucose POC Glucose 282 H 263 H 200 H Calcium Phosphorus Magnesium AST ALT Total Creatine Kinase CK-MB (CK-2) Troponin T Total Protein Albumin HDL Cholesterol TSH Free T3 Index Arterial Blood Glucose Arterial Blood Ionized Calcium Urine pH Urine WBC (Auto) Urine Creatinine Acetaminophen Crossmatch 04/28/21 04/29/21 04/29/21 23:49 03:24 04:22 WBC RBC Hgb Hct MCV MCH RDW Plt Count Lymph % (Auto) [place] % (Auto) [place] # (Auto) Seg Neutrophils % Seg Neuts % (Manual) Lymphocytes % (Manual) Monocytes % (Manual) Seg Neutrophils # Seg Neutrophils # Man Lymphocytes # (Manual) Monocytes # (Manual) ABG pH 7.546 H POC ABG pCO2 POC ABG pO2 52.4 L ABG Hemoglobin 10.5 L ABG Oxyhemoglobin 88.3 L ABG Sodium ABG Potassium ABG Chloride ABG Glucose 217 H Carboxyhemoglobin 0.4 L Sodium 148 H Potassium Chloride BUN 110 H Creatinine 3.1 H Glucose 208 H POC Glucose 238 H Calcium Phosphorus Magnesium AST ALT Total Creatine Kinase CK-MB (CK-2) Troponin T Total Protein Albumin HDL Cholesterol TSH Free T3 Index Arterial Blood Glucose 217 H Arterial Blood Ionized Calcium Urine pH Urine WBC (Auto) Urine Creatinine Acetaminophen Crossmatch 04/29/21 04/29/21 04/29/21 04:22 05:08 11:26 WBC 15.2 H RBC 3.30 L Hgb 9.8 L Hct MCV MCH RDW Plt Count Lymph % (Auto) [place] % (Auto) [place] # (Auto) Seg Neutrophils % Seg Neuts % (Manual) Lymphocytes % (Manual) Monocytes % (Manual) Seg Neutrophils # Seg Neutrophils # Man Lymphocytes # (Manual) Monocytes # (Manual) ABG pH POC ABG pCO2 POC ABG pO2 ABG Hemoglobin ABG Oxyhemoglobin ABG Sodium ABG Potassium ABG Chloride ABG Glucose Carboxyhemoglobin Sodium Potassium Chloride BUN Creatinine Glucose POC Glucose 181 H 218 H Calcium Phosphorus Magnesium AST ALT Total Creatine Kinase CK-MB (CK-2) Troponin T Total Protein Albumin HDL Cholesterol TSH Free T3 Index Arterial Blood Glucose Arterial Blood Ionized Calcium Urine pH Urine WBC (Auto) Urine Creatinine Acetaminophen Crossmatch 04/29/21 04/29/21 04/30/21 17:06 23:06 03:58 WBC RBC Hgb Hct MCV MCH RDW Plt Count Lymph % (Auto) [place] % (Auto) [place] # (Auto) Seg Neutrophils % Seg Neuts % (Manual) Lymphocytes % (Manual) Monocytes % (Manual) Seg Neutrophils # Seg Neutrophils # Man Lymphocytes # (Manual) Monocytes # (Manual) ABG pH 7.547 H POC ABG pCO2 31.3 L POC ABG pO2 58.4 L ABG Hemoglobin 9.6 L ABG Oxyhemoglobin 91.1 L ABG Sodium ABG Potassium ABG Chloride 108.0 H ABG Glucose 248 H Carboxyhemoglobin 0.2 L Sodium Potassium Chloride BUN Creatinine Glucose POC Glucose 223 H 252 H Calcium Phosphorus Magnesium AST ALT Total Creatine Kinase CK-MB (CK-2) Troponin T Total Protein Albumin HDL Cholesterol TSH Free T3 Index Arterial Blood Glucose 248 H Arterial Blood Ionized Calcium Urine pH Urine WBC (Auto) Urine Creatinine Acetaminophen Crossmatch 04/30/21 04/30/21 04/30/21 05:23 05:54 11:47 WBC RBC Hgb Hct MCV MCH RDW Plt Count Lymph % (Auto) [place] % (Auto) [place] # (Auto) Seg Neutrophils % Seg Neuts % (Manual) Lymphocytes % (Manual) Monocytes % (Manual) Seg Neutrophils # Seg Neutrophils # Man Lymphocytes # (Manual) Monocytes # (Manual) ABG pH POC ABG pCO2 POC ABG pO2 ABG Hemoglobin ABG Oxyhemoglobin ABG Sodium ABG Potassium ABG Chloride ABG Glucose Carboxyhemoglobin Sodium Potassium Chloride BUN 118 H Creatinine 3.3 H Glucose 263 H POC Glucose 244 H 237 H Calcium Phosphorus Magnesium AST ALT Total Creatine Kinase CK-MB (CK-2) Troponin T Total Protein Albumin HDL Cholesterol TSH Free T3 Index Arterial Blood Glucose Arterial Blood Ionized Calcium Urine pH Urine WBC (Auto) Urine Creatinine Acetaminophen Crossmatch 04/30/21 04/30/21 04/30/21 17:26 17:45 23:51 WBC RBC Hgb Hct MCV MCH RDW Plt Count Lymph % (Auto) [place] % (Auto) [place] # (Auto) Seg Neutrophils % Seg Neuts % (Manual) Lymphocytes % (Manual) Monocytes % (Manual) Seg Neutrophils # Seg Neutrophils # Man Lymphocytes # (Manual) Monocytes # (Manual) ABG pH POC ABG pCO2 POC ABG pO2 ABG Hemoglobin ABG Oxyhemoglobin ABG Sodium ABG Potassium ABG Chloride ABG Glucose Carboxyhemoglobin Sodium Potassium Chloride BUN Creatinine Glucose POC Glucose 193 H 197 H Calcium Phosphorus Magnesium AST ALT Total Creatine Kinase CK-MB (CK-2) Troponin T Total Protein Albumin HDL Cholesterol TSH Free T3 Index Arterial Blood Glucose Arterial Blood Ionized Calcium Urine pH Urine WBC (Auto) 48.0 H Urine Creatinine Acetaminophen Crossmatch 05/01/21 05/01/21 05/01/21 04:02 04:57 07:11 WBC 12.3 H RBC 2.83 L Hgb 8.8 L Hct 27.3 L MCV MCH RDW Plt Count Lymph % (Auto) [place] % (Auto) [place] # (Auto) Seg Neutrophils % Seg Neuts % (Manual) 80.0 H Lymphocytes % (Manual) 5.0 L Monocytes % (Manual) Seg Neutrophils # Seg Neutrophils # Man 9.8 H Lymphocytes # (Manual) 0.6 L Monocytes # (Manual) ABG pH 7.466 H POC ABG pCO2 POC ABG pO2 61.4 L ABG Hemoglobin 9.0 L ABG Oxyhemoglobin 91.1 L ABG Sodium ABG Potassium ABG Chloride 110.0 H ABG Glucose 245 H Carboxyhemoglobin Sodium Potassium Chloride BUN Creatinine Glucose POC Glucose 193 H Calcium Phosphorus Magnesium AST ALT Total Creatine Kinase CK-MB (CK-2) Troponin T Total Protein Albumin HDL Cholesterol TSH Free T3 Index Arterial Blood Glucose 245 H Arterial Blood Ionized Calcium Urine pH Urine WBC (Auto) Urine Creatinine Acetaminophen Crossmatch 05/01/21 05/01/21 05/01/21 07:11 07:45 11:30 WBC RBC Hgb Hct MCV MCH RDW Plt Count Lymph % (Auto) [place] % (Auto) [place] # (Auto) Seg Neutrophils % Seg Neuts % (Manual) Lymphocytes % (Manual) Monocytes % (Manual) Seg Neutrophils # Seg Neutrophils # Man Lymphocytes # (Manual) Monocytes # (Manual) ABG pH POC ABG pCO2 POC ABG pO2 ABG Hemoglobin ABG Oxyhemoglobin ABG Sodium ABG Potassium ABG Chloride ABG Glucose Carboxyhemoglobin Sodium 146 H Potassium Chloride 108.4 H BUN 122 H Creatinine 3.4 H Glucose 235 H POC Glucose 212 H 247 H Calcium Phosphorus Magnesium AST ALT Total Creatine Kinase CK-MB (CK-2) Troponin T Total Protein Albumin HDL Cholesterol TSH Free T3 Index Arterial Blood Glucose Arterial Blood Ionized Calcium Urine pH Urine WBC (Auto) Urine Creatinine Acetaminophen Crossmatch 05/01/21 05/01/21 05/01/21 11:31 17:42 23:49 WBC RBC Hgb Hct MCV MCH RDW Plt Count Lymph % (Auto) [place] % (Auto) [place] # (Auto) Seg Neutrophils % Seg Neuts % (Manual) Lymphocytes % (Manual) Monocytes % (Manual) Seg Neutrophils # Seg Neutrophils # Man Lymphocytes # (Manual) Monocytes # (Manual) ABG pH POC ABG pCO2 POC ABG pO2 ABG Hemoglobin ABG Oxyhemoglobin ABG Sodium ABG Potassium ABG Chloride ABG Glucose Carboxyhemoglobin Sodium Potassium Chloride BUN Creatinine Glucose POC Glucose 258 H 171 H 167 H Calcium Phosphorus Magnesium AST ALT Total Creatine Kinase CK-MB (CK-2) Troponin T Total Protein Albumin HDL Cholesterol TSH Free T3 Index Arterial Blood Glucose Arterial Blood Ionized Calcium Urine pH Urine WBC (Auto) Urine Creatinine Acetaminophen Crossmatch 05/02/21 05/02/21 05/02/21 05:12 08:34 11:53 WBC RBC Hgb Hct MCV MCH RDW Plt Count Lymph % (Auto) [place] % (Auto) [place] # (Auto) Seg Neutrophils % Seg Neuts % (Manual) Lymphocytes % (Manual) Monocytes % (Manual) Seg Neutrophils # Seg Neutrophils # Man Lymphocytes # (Manual) Monocytes # (Manual) ABG pH POC ABG pCO2 POC ABG pO2 ABG Hemoglobin ABG Oxyhemoglobin ABG Sodium ABG Potassium ABG Chloride ABG Glucose Carboxyhemoglobin Sodium 148 H Potassium Chloride 110.4 H BUN 124 H Creatinine 3.4 H Glucose 208 H POC Glucose 163 H 185 H Calcium 8.3 L Phosphorus Magnesium AST ALT Total Creatine Kinase CK-MB (CK-2) Troponin T Total Protein Albumin HDL Cholesterol TSH Free T3 Index Arterial Blood Glucose Arterial Blood Ionized Calcium Urine pH Urine WBC (Auto) Urine Creatinine Acetaminophen Crossmatch 05/02/21 05/02/21 05/03/21 17:28 23:32 03:57 WBC RBC Hgb Hct MCV MCH RDW Plt Count Lymph % (Auto) [place] % (Auto) [place] # (Auto) Seg Neutrophils % Seg Neuts % (Manual) Lymphocytes % (Manual) Monocytes % (Manual) Seg Neutrophils # Seg Neutrophils # Man Lymphocytes # (Manual) Monocytes # (Manual) ABG pH 7.531 H POC ABG pCO2 31.0 L POC ABG pO2 64.3 L ABG Hemoglobin 9.0 L ABG Oxyhemoglobin 92.6 L ABG Sodium 145.7 H ABG Potassium ABG Chloride 112.0 H ABG Glucose 202 H Carboxyhemoglobin Sodium Potassium Chloride BUN Creatinine Glucose POC Glucose 147 H 202 H Calcium Phosphorus Magnesium AST ALT Total Creatine Kinase CK-MB (CK-2) Troponin T Total Protein Albumin HDL Cholesterol TSH Free T3 Index Arterial Blood Glucose 202 H Arterial Blood Ionized Calcium Urine pH Urine WBC (Auto) Urine Creatinine Acetaminophen Crossmatch 05/03/21 05/03/21 05/03/21 05:14 05:44 11:10 WBC RBC Hgb Hct MCV MCH RDW Plt Count Lymph % (Auto) [place] % (Auto) [place] # (Auto) Seg Neutrophils % Seg Neuts % (Manual) Lymphocytes % (Manual) Monocytes % (Manual) Seg Neutrophils # Seg Neutrophils # Man Lymphocytes # (Manual) Monocytes # (Manual) ABG pH POC ABG pCO2 POC ABG pO2 ABG Hemoglobin ABG Oxyhemoglobin ABG Sodium ABG Potassium ABG Chloride ABG Glucose Carboxyhemoglobin Sodium 147 H Potassium Chloride 109.7 H BUN 121 H Creatinine 3.1 H Glucose 190 H POC Glucose 175 H 202 H Calcium Phosphorus Magnesium AST ALT Total Creatine Kinase CK-MB (CK-2) Troponin T Total Protein Albumin HDL Cholesterol TSH Free T3 Index Arterial Blood Glucose Arterial Blood Ionized Calcium Urine pH Urine WBC (Auto) Urine Creatinine Acetaminophen Crossmatch 05/03/21 05/04/21 05/04/21 23:58 04:57 04:57 WBC RBC 2.61 L Hgb 8.2 L Hct 25.4 L MCV 98 H MCH RDW 15.3 H Plt Count Lymph % (Auto) [place] % (Auto) [place] # (Auto) Seg Neutrophils % Seg Neuts % (Manual) Lymphocytes % (Manual) Monocytes % (Manual) Seg Neutrophils # Seg Neutrophils # Man Lymphocytes # (Manual) Monocytes # (Manual) ABG pH POC ABG pCO2 POC ABG pO2 ABG Hemoglobin ABG Oxyhemoglobin ABG Sodium ABG Potassium ABG Chloride ABG Glucose Carboxyhemoglobin Sodium 147 H Potassium Chloride 111.0 H BUN 104 H Creatinine 2.8 H Glucose 179 H POC Glucose 131 H Calcium Phosphorus Magnesium AST ALT Total Creatine Kinase CK-MB (CK-2) Troponin T Total Protein Albumin HDL Cholesterol TSH Free T3 Index Arterial Blood Glucose Arterial Blood Ionized Calcium Urine pH Urine WBC (Auto) Urine Creatinine Acetaminophen Crossmatch 05/04/21 05/04/21 05/04/21 05:19 11:28 17:02 WBC RBC Hgb Hct MCV MCH RDW Plt Count Lymph % (Auto) [place] % (Auto) [place] # (Auto) Seg Neutrophils % Seg Neuts % (Manual) Lymphocytes % (Manual) Monocytes % (Manual) Seg Neutrophils # Seg Neutrophils # Man Lymphocytes # (Manual) Monocytes # (Manual) ABG pH POC ABG pCO2 POC ABG pO2 ABG Hemoglobin ABG Oxyhemoglobin ABG Sodium ABG Potassium ABG Chloride ABG Glucose Carboxyhemoglobin Sodium Potassium Chloride BUN Creatinine Glucose POC Glucose 168 H 206 H 213 H Calcium Phosphorus Magnesium AST ALT Total Creatine Kinase CK-MB (CK-2) Troponin T Total Protein Albumin HDL Cholesterol TSH Free T3 Index Arterial Blood Glucose Arterial Blood Ionized Calcium Urine pH Urine WBC (Auto) Urine Creatinine Acetaminophen Crossmatch 05/04/21 05/05/21 05/05/21 23:13 04:55 05:15 WBC RBC Hgb Hct MCV MCH RDW Plt Count Lymph % (Auto) [place] % (Auto) [place] # (Auto) Seg Neutrophils % Seg Neuts % (Manual) Lymphocytes % (Manual) Monocytes % (Manual) Seg Neutrophils # Seg Neutrophils # Man Lymphocytes # (Manual) Monocytes # (Manual) ABG pH POC ABG pCO2 POC ABG pO2 ABG Hemoglobin ABG Oxyhemoglobin ABG Sodium ABG Potassium ABG Chloride ABG Glucose Carboxyhemoglobin Sodium Potassium Chloride BUN 91 H Creatinine 2.4 H Glucose 255 H POC Glucose 232 H 235 H Calcium Phosphorus Magnesium AST ALT Total Creatine Kinase CK-MB (CK-2) Troponin T Total Protein Albumin HDL Cholesterol TSH Free T3 Index Arterial Blood Glucose Arterial Blood Ionized Calcium Urine pH Urine WBC (Auto) Urine Creatinine Acetaminophen Crossmatch 05/05/21 05/05/21 05/05/21 11:41 17:46 23:40 WBC RBC Hgb Hct MCV MCH RDW Plt Count Lymph % (Auto) [place] % (Auto) [place] # (Auto) Seg Neutrophils % Seg Neuts % (Manual) Lymphocytes % (Manual) Monocytes % (Manual) Seg Neutrophils # Seg Neutrophils # Man Lymphocytes # (Manual) Monocytes # (Manual) ABG pH POC ABG pCO2 POC ABG pO2 ABG Hemoglobin ABG Oxyhemoglobin ABG Sodium ABG Potassium ABG Chloride ABG Glucose Carboxyhemoglobin Sodium Potassium Chloride BUN Creatinine Glucose POC Glucose 199 H 231 H 224 H Calcium Phosphorus Magnesium AST ALT Total Creatine Kinase CK-MB (CK-2) Troponin T Total Protein Albumin HDL Cholesterol TSH Free T3 Index Arterial Blood Glucose Arterial Blood Ionized Calcium Urine pH Urine WBC (Auto) Urine Creatinine Acetaminophen Crossmatch 05/06/21 05/06/21 05/06/21 04:00 05:37 07:12 WBC RBC Hgb Hct MCV MCH RDW Plt Count Lymph % (Auto) [place] % (Auto) [place] # (Auto) Seg Neutrophils % Seg Neuts % (Manual) Lymphocytes % (Manual) Monocytes % (Manual) Seg Neutrophils # Seg Neutrophils # Man Lymphocytes # (Manual) Monocytes # (Manual) ABG pH 7.464 H POC ABG pCO2 POC ABG pO2 74.2 L ABG Hemoglobin 10.5 L ABG Oxyhemoglobin ABG Sodium ABG Potassium ABG Chloride 110.0 H ABG Glucose 214 H Carboxyhemoglobin 0.4 L Sodium 146 H Potassium Chloride 110.4 H BUN 82 H Creatinine 2.3 H Glucose 154 H POC Glucose 165 H Calcium Phosphorus Magnesium AST ALT Total Creatine Kinase CK-MB (CK-2) Troponin T Total Protein Albumin HDL Cholesterol TSH Free T3 Index Arterial Blood Glucose 214 H Arterial Blood Ionized Calcium Urine pH Urine WBC (Auto) Urine Creatinine Acetaminophen Crossmatch 05/06/21 05/06/21 05/07/21 17:11 23:40 05:26 WBC RBC Hgb Hct MCV MCH RDW Plt Count Lymph % (Auto) [place] % (Auto) [place] # (Auto) Seg Neutrophils % Seg Neuts % (Manual) Lymphocytes % (Manual) Monocytes % (Manual) Seg Neutrophils # Seg Neutrophils # Man Lymphocytes # (Manual) Monocytes # (Manual) ABG pH POC ABG pCO2 POC ABG pO2 ABG Hemoglobin ABG Oxyhemoglobin ABG Sodium ABG Potassium ABG Chloride ABG Glucose Carboxyhemoglobin Sodium Potassium Chloride BUN Creatinine Glucose POC Glucose 126 H 165 H 156 H Calcium Phosphorus Magnesium AST ALT Total Creatine Kinase CK-MB (CK-2) Troponin T Total Protein Albumin HDL Cholesterol TSH Free T3 Index Arterial Blood Glucose Arterial Blood Ionized Calcium Urine pH Urine WBC (Auto) Urine Creatinine Acetaminophen Crossmatch 05/07/21 05/07/21 05/07/21 08:20 08:20 11:35 WBC RBC 2.58 L Hgb 7.9 L Hct 24.9 L MCV MCH RDW Plt Count Lymph % (Auto) [place] % (Auto) [place] # (Auto) Seg Neutrophils % Seg Neuts % (Manual) Lymphocytes % (Manual) Monocytes % (Manual) Seg Neutrophils # Seg Neutrophils # Man Lymphocytes # (Manual) Monocytes # (Manual) ABG pH POC ABG pCO2 POC ABG pO2 ABG Hemoglobin ABG Oxyhemoglobin ABG Sodium ABG Potassium ABG Chloride ABG Glucose Carboxyhemoglobin Sodium Potassium Chloride 108.4 H BUN 81 H Creatinine 2.4 H Glucose 133 H POC Glucose 112 H Calcium Phosphorus Magnesium AST ALT Total Creatine Kinase CK-MB (CK-2) Troponin T Total Protein Albumin HDL Cholesterol TSH Free T3 Index Arterial Blood Glucose Arterial Blood Ionized Calcium Urine pH Urine WBC (Auto) Urine Creatinine Acetaminophen Crossmatch 05/07/21 05/07/21 05/08/21 17:51 23:27 03:05 WBC RBC Hgb Hct MCV MCH RDW Plt Count Lymph % (Auto) [place] % (Auto) [place] # (Auto) Seg Neutrophils % Seg Neuts % (Manual) Lymphocytes % (Manual) Monocytes % (Manual) Seg Neutrophils # Seg Neutrophils # Man Lymphocytes # (Manual) Monocytes # (Manual) ABG pH 7.454 H POC ABG pCO2 POC ABG pO2 82.1 L ABG Hemoglobin 8.1 L ABG Oxyhemoglobin ABG Sodium ABG Potassium 4.8 H ABG Chloride 111.0 H ABG Glucose 194 H Carboxyhemoglobin Sodium Potassium Chloride BUN Creatinine Glucose POC Glucose 136 H 133 H Calcium Phosphorus Magnesium AST ALT Total Creatine Kinase CK-MB (CK-2) Troponin T Total Protein Albumin HDL Cholesterol TSH Free T3 Index Arterial Blood Glucose 194 H Arterial Blood Ionized Calcium Urine pH Urine WBC (Auto) Urine Creatinine Acetaminophen Crossmatch 05/08/21 05/08/21 05/08/21 05:52 07:07 07:07 WBC 12.0 H RBC 2.94 L Hgb 9.0 L Hct 28.5 L MCV MCH RDW Plt Count Lymph % (Auto) [place] % (Auto) [place] # (Auto) Seg Neutrophils % Seg Neuts % (Manual) Lymphocytes % (Manual) Monocytes % (Manual) Seg Neutrophils # Seg Neutrophils # Man Lymphocytes # (Manual) Monocytes # (Manual) ABG pH POC ABG pCO2 POC ABG pO2 ABG Hemoglobin ABG Oxyhemoglobin ABG Sodium ABG Potassium ABG Chloride ABG Glucose Carboxyhemoglobin Sodium Potassium Chloride BUN 73 H Creatinine 2.2 H Glucose 211 H POC Glucose 194 H Calcium Phosphorus Magnesium AST ALT Total Creatine Kinase CK-MB (CK-2) Troponin T Total Protein Albumin HDL Cholesterol TSH Free T3 Index Arterial Blood Glucose Arterial Blood Ionized Calcium Urine pH Urine WBC (Auto) Urine Creatinine Acetaminophen Crossmatch 05/08/21 05/08/21 05/08/21 11:19 17:20 23:22 WBC RBC Hgb Hct MCV MCH RDW Plt Count Lymph % (Auto) [place] % (Auto) [place] # (Auto) Seg Neutrophils % Seg Neuts % (Manual) Lymphocytes % (Manual) Monocytes % (Manual) Seg Neutrophils # Seg Neutrophils # Man Lymphocytes # (Manual) Monocytes # (Manual) ABG pH POC ABG pCO2 POC ABG pO2 ABG Hemoglobin ABG Oxyhemoglobin ABG Sodium ABG Potassium ABG Chloride ABG Glucose Carboxyhemoglobin Sodium Potassium Chloride BUN Creatinine Glucose POC Glucose 231 H 251 H 295 H Calcium Phosphorus Magnesium AST ALT Total Creatine Kinase CK-MB (CK-2) Troponin T Total Protein Albumin HDL Cholesterol TSH Free T3 Index Arterial Blood Glucose Arterial Blood Ionized Calcium Urine pH Urine WBC (Auto) Urine Creatinine Acetaminophen Crossmatch 05/09/21 05/09/21 05/09/21 05:39 07:36 11:39 WBC RBC Hgb Hct MCV MCH RDW Plt Count Lymph % (Auto) [place] % (Auto) [place] # (Auto) Seg Neutrophils % Seg Neuts % (Manual) Lymphocytes % (Manual) Monocytes % (Manual) Seg Neutrophils # Seg Neutrophils # Man Lymphocytes # (Manual) Monocytes # (Manual) ABG pH POC ABG pCO2 POC ABG pO2 ABG Hemoglobin ABG Oxyhemoglobin ABG Sodium ABG Potassium ABG Chloride ABG Glucose Carboxyhemoglobin Sodium Potassium Chloride BUN 64 H Creatinine 2.2 H Glucose 308 H POC Glucose 240 H 330 H Calcium Phosphorus Magnesium AST ALT Total Creatine Kinase CK-MB (CK-2) Troponin T Total Protein Albumin HDL Cholesterol TSH Free T3 Index Arterial Blood Glucose Arterial Blood Ionized Calcium Urine pH Urine WBC (Auto) Urine Creatinine Acetaminophen Crossmatch 05/09/21 05/09/21 05/10/21 17:37 23:15 05:15 WBC RBC Hgb Hct MCV MCH RDW Plt Count Lymph % (Auto) [place] % (Auto) [place] # (Auto) Seg Neutrophils % Seg Neuts % (Manual) Lymphocytes % (Manual) Monocytes % (Manual) Seg Neutrophils # Seg Neutrophils # Man Lymphocytes # (Manual) Monocytes # (Manual) ABG pH POC ABG pCO2 POC ABG pO2 ABG Hemoglobin ABG Oxyhemoglobin ABG Sodium ABG Potassium ABG Chloride ABG Glucose Carboxyhemoglobin Sodium Potassium Chloride BUN Creatinine Glucose POC Glucose 174 H 152 H 146 H Calcium Phosphorus Magnesium AST ALT Total Creatine Kinase CK-MB (CK-2) Troponin T Total Protein Albumin HDL Cholesterol TSH Free T3 Index Arterial Blood Glucose Arterial Blood Ionized Calcium Urine pH Urine WBC (Auto) Urine Creatinine Acetaminophen Crossmatch 05/10/21 05/10/21 05/10/21 05:36 11:29 17:35 WBC RBC Hgb Hct MCV MCH RDW Plt Count Lymph % (Auto) [place] % (Auto) [place] # (Auto) Seg Neutrophils % Seg Neuts % (Manual) Lymphocytes % (Manual) Monocytes % (Manual) Seg Neutrophils # Seg Neutrophils # Man Lymphocytes # (Manual) Monocytes # (Manual) ABG pH POC ABG pCO2 POC ABG pO2 ABG Hemoglobin ABG Oxyhemoglobin ABG Sodium ABG Potassium ABG Chloride ABG Glucose Carboxyhemoglobin Sodium Potassium Chloride 110.7 H BUN 54 H Creatinine 2.2 H Glucose 164 H POC Glucose 202 H 109 H Calcium Phosphorus Magnesium AST ALT Total Creatine Kinase CK-MB (CK-2) Troponin T Total Protein Albumin HDL Cholesterol TSH Free T3 Index Arterial Blood Glucose Arterial Blood Ionized Calcium Urine pH Urine WBC (Auto) Urine Creatinine Acetaminophen Crossmatch 05/11/21 05/11/21 05/11/21 05:38 07:10 11:54 WBC RBC Hgb Hct MCV MCH RDW Plt Count Lymph % (Auto) [place] % (Auto) [place] # (Auto) Seg Neutrophils % Seg Neuts % (Manual) Lymphocytes % (Manual) Monocytes % (Manual) Seg Neutrophils # Seg Neutrophils # Man Lymphocytes # (Manual) Monocytes # (Manual) ABG pH POC ABG pCO2 POC ABG pO2 ABG Hemoglobin ABG Oxyhemoglobin ABG Sodium ABG Potassium ABG Chloride ABG Glucose Carboxyhemoglobin Sodium Potassium 5.2 H Chloride 108.8 H BUN 50 H Creatinine 2.2 H Glucose 176 H POC Glucose 135 H 219 H Calcium Phosphorus Magnesium AST ALT Total Creatine Kinase CK-MB (CK-2) Troponin T Total Protein Albumin HDL Cholesterol TSH Free T3 Index Arterial Blood Glucose Arterial Blood Ionized Calcium Urine pH Urine WBC (Auto) Urine Creatinine Acetaminophen Crossmatch 05/11/21 05/11/21 05/12/21 17:51 22:50 04:51 WBC RBC Hgb Hct MCV MCH RDW Plt Count Lymph % (Auto) [place] % (Auto) [place] # (Auto) Seg Neutrophils % Seg Neuts % (Manual) Lymphocytes % (Manual) Monocytes % (Manual) Seg Neutrophils # Seg Neutrophils # Man Lymphocytes # (Manual) Monocytes # (Manual) ABG pH POC ABG pCO2 POC ABG pO2 ABG Hemoglobin ABG Oxyhemoglobin ABG Sodium ABG Potassium ABG Chloride ABG Glucose Carboxyhemoglobin Sodium Potassium Chloride 108.2 H BUN 49 H Creatinine 2.2 H Glucose 161 H POC Glucose 169 H 118 H Calcium Phosphorus Magnesium AST ALT Total Creatine Kinase CK-MB (CK-2) Troponin T Total Protein Albumin HDL Cholesterol TSH Free T3 Index Arterial Blood Glucose Arterial Blood Ionized Calcium Urine pH Urine WBC (Auto) Urine Creatinine Acetaminophen Crossmatch 05/12/21 05/12/21 05/12/21 05:05 10:31 11:50 WBC RBC Hgb Hct MCV MCH RDW Plt Count Lymph % (Auto) [place] % (Auto) [place] # (Auto) Seg Neutrophils % Seg Neuts % (Manual) Lymphocytes % (Manual) Monocytes % (Manual) Seg Neutrophils # Seg Neutrophils # Man Lymphocytes # (Manual) Monocytes # (Manual) ABG pH 7.498 H POC ABG pCO2 POC ABG pO2 75.8 L ABG Hemoglobin 7.3 L ABG Oxyhemoglobin 93.4 L ABG Sodium ABG Potassium ABG Chloride 108.0 H ABG Glucose 199 H Carboxyhemoglobin 1.6 H Sodium Potassium Chloride BUN Creatinine Glucose POC Glucose 160 H 160 H Calcium Phosphorus Magnesium AST ALT Total Creatine Kinase CK-MB (CK-2) Troponin T Total Protein Albumin HDL Cholesterol TSH Free T3 Index Arterial Blood Glucose 199 H Arterial Blood Ionized Calcium Urine pH Urine WBC (Auto) Urine Creatinine Acetaminophen Crossmatch 05/12/21 05/12/21 05/13/21 17:39 23:36 05:49 WBC RBC Hgb Hct MCV MCH RDW Plt Count Lymph % (Auto) [place] % (Auto) [place] # (Auto) Seg Neutrophils % Seg Neuts % (Manual) Lymphocytes % (Manual) Monocytes % (Manual) Seg Neutrophils # Seg Neutrophils # Man Lymphocytes # (Manual) Monocytes # (Manual) ABG pH POC ABG pCO2 POC ABG pO2 ABG Hemoglobin ABG Oxyhemoglobin ABG Sodium ABG Potassium ABG Chloride ABG Glucose Carboxyhemoglobin Sodium Potassium Chloride BUN Creatinine Glucose POC Glucose 148 H 148 H 173 H Calcium Phosphorus Magnesium AST ALT Total Creatine Kinase CK-MB (CK-2) Troponin T Total Protein Albumin HDL Cholesterol TSH Free T3 Index Arterial Blood Glucose Arterial Blood Ionized Calcium Urine pH Urine WBC (Auto) Urine Creatinine Acetaminophen Crossmatch 05/13/21 05/13/21 05/13/21 05:58 13:09 17:01 WBC RBC Hgb Hct MCV MCH RDW Plt Count Lymph % (Auto) [place] % (Auto) [place] # (Auto) Seg Neutrophils % Seg Neuts % (Manual) Lymphocytes % (Manual) Monocytes % (Manual) Seg Neutrophils # Seg Neutrophils # Man Lymphocytes # (Manual) Monocytes # (Manual) ABG pH POC ABG pCO2 POC ABG pO2 ABG Hemoglobin ABG Oxyhemoglobin ABG Sodium ABG Potassium ABG Chloride ABG Glucose Carboxyhemoglobin Sodium Potassium Chloride 108.0 H BUN 53 H Creatinine 2.2 H Glucose 178 H POC Glucose 191 H 151 H Calcium Phosphorus Magnesium AST ALT Total Creatine Kinase CK-MB (CK-2) Troponin T Total Protein Albumin HDL Cholesterol TSH Free T3 Index Arterial Blood Glucose Arterial Blood Ionized Calcium Urine pH Urine WBC (Auto) Urine Creatinine Acetaminophen Crossmatch 05/14/21 05/14/21 05/14/21 00:02 04:48 08:16 WBC RBC Hgb Hct MCV MCH RDW Plt Count Lymph % (Auto) [place] % (Auto) [place] # (Auto) Seg Neutrophils % Seg Neuts % (Manual) Lymphocytes % (Manual) Monocytes % (Manual) Seg Neutrophils # Seg Neutrophils # Man Lymphocytes # (Manual) Monocytes # (Manual) ABG pH POC ABG pCO2 POC ABG pO2 ABG Hemoglobin ABG Oxyhemoglobin ABG Sodium ABG Potassium ABG Chloride ABG Glucose Carboxyhemoglobin Sodium Potassium Chloride BUN 45 H Creatinine 2.0 H Glucose 207 H POC Glucose 148 H 193 H Calcium Phosphorus Magnesium AST ALT Total Creatine Kinase CK-MB (CK-2) Troponin T Total Protein Albumin HDL Cholesterol TSH Free T3 Index Arterial Blood Glucose Arterial Blood Ionized Calcium Urine pH Urine WBC (Auto) Urine Creatinine Acetaminophen Crossmatch 05/14/21 05/14/21 05/14/21 08:50 12:44 17:29 WBC RBC 2.16 L Hgb 7.0 L Hct 21.2 L MCV 98 H MCH 33 H RDW 16.0 H Plt Count Lymph % (Auto) [place] % (Auto) [place] # (Auto) Seg Neutrophils % Seg Neuts % (Manual) Lymphocytes % (Manual) Monocytes % (Manual) Seg Neutrophils # Seg Neutrophils # Man Lymphocytes # (Manual) Monocytes # (Manual) ABG pH POC ABG pCO2 POC ABG pO2 ABG Hemoglobin ABG Oxyhemoglobin ABG Sodium ABG Potassium ABG Chloride ABG Glucose Carboxyhemoglobin Sodium Potassium Chloride BUN Creatinine Glucose POC Glucose 215 H 118 H Calcium Phosphorus Magnesium AST ALT Total Creatine Kinase CK-MB (CK-2) Troponin T Total Protein Albumin HDL Cholesterol TSH Free T3 Index Arterial Blood Glucose Arterial Blood Ionized Calcium Urine pH Urine WBC (Auto) Urine Creatinine Acetaminophen Crossmatch 05/14/21 05/15/21 05/15/21 19:00 05:11 05:51 WBC RBC Hgb Hct MCV MCH RDW Plt Count Lymph % (Auto) [place] % (Auto) [place] # (Auto) Seg Neutrophils % Seg Neuts % (Manual) Lymphocytes % (Manual) Monocytes % (Manual) Seg Neutrophils # Seg Neutrophils # Man Lymphocytes # (Manual) Monocytes # (Manual) ABG pH POC ABG pCO2 POC ABG pO2 ABG Hemoglobin ABG Oxyhemoglobin ABG Sodium ABG Potassium ABG Chloride ABG Glucose Carboxyhemoglobin Sodium Potassium 5.3 H Chloride BUN 42 H Creatinine 2.0 H Glucose 123 H POC Glucose 116 H Calcium Phosphorus Magnesium AST ALT Total Creatine Kinase CK-MB (CK-2) Troponin T Total Protein Albumin HDL Cholesterol TSH Free T3 Index Arterial Blood Glucose Arterial Blood Ionized Calcium Urine pH Urine WBC (Auto) Urine Creatinine Acetaminophen Crossmatch See Detail 05/15/21 05/15/21 05/15/21 05:51 11:27 22:00 WBC RBC 2.60 L Hgb 8.0 L Hct 24.6 L MCV MCH RDW 17.0 H Plt Count Lymph % (Auto) [place] % (Auto) 15.3 H [place] # (Auto) 1.1 H Seg Neutrophils % Seg Neuts % (Manual) Lymphocytes % (Manual) Monocytes % (Manual) Seg Neutrophils # Seg Neutrophils # Man Lymphocytes # (Manual) Monocytes # (Manual) ABG pH 7.473 H POC ABG pCO2 POC ABG pO2 77.7 L ABG Hemoglobin 8.4 L ABG Oxyhemoglobin ABG Sodium ABG Potassium 4.7 H ABG Chloride ABG Glucose 104 H Carboxyhemoglobin Sodium Potassium Chloride BUN Creatinine Glucose POC Glucose 156 H Calcium Phosphorus Magnesium AST ALT Total Creatine Kinase CK-MB (CK-2) Troponin T Total Protein Albumin HDL Cholesterol TSH Free T3 Index Arterial Blood Glucose 104 H Arterial Blood Ionized Calcium Urine pH Urine WBC (Auto) Urine Creatinine Acetaminophen Crossmatch 05/16/21 05/16/21 05/16/21 05:25 06:40 11:57 WBC RBC Hgb Hct MCV MCH RDW Plt Count Lymph % (Auto) [place] % (Auto) [place] # (Auto) Seg Neutrophils % Seg Neuts % (Manual) Lymphocytes % (Manual) Monocytes % (Manual) Seg Neutrophils # Seg Neutrophils # Man Lymphocytes # (Manual) Monocytes # (Manual) ABG pH POC ABG pCO2 POC ABG pO2 ABG Hemoglobin ABG Oxyhemoglobin ABG Sodium ABG Potassium ABG Chloride ABG Glucose Carboxyhemoglobin Sodium Potassium 5.4 H Chloride BUN 39 H Creatinine 2.0 H Glucose 165 H POC Glucose 143 H 191 H Calcium Phosphorus Magnesium AST ALT Total Creatine Kinase CK-MB (CK-2) Troponin T Total Protein Albumin HDL Cholesterol TSH Free T3 Index Arterial Blood Glucose Arterial Blood Ionized Calcium Urine pH Urine WBC (Auto) Urine Creatinine Acetaminophen Crossmatch Allied health notes reviewed: nursing
[2021-05-16] MEDS: LATANOPROST 0.005% OPHTH SOLN 2.5 ML OU SCH (17:46)
--- NOTE | 2021-05-16 20:10 | Progress Note ---
<JEREMYPURNIMAElvia - Last Filed: 05/16/21 20:09> Assessment and Plan Assessment and plan: This is a 80-year-old female with HTN, DM, [place], breast CA s/p double mastectomy, TIA who presented with hypoglycemia, AMS who was admitted with SIRS, symptomatic bradycardia, acute metabolic encephalopathy, acute hypoxic respiratory failure, elevated TSH, hyperglycemia, hyponatremia, hypokalemia, ROJELIO and rhabdomyolysis Acute metabolic encephalopathy-persist Acute hypoxic respiratory failure (extubated 04/20)- Re-intubated secondary to Stridor and paradoxical breathing - s/p trach and PEG First-degree heart block Resolved ileus versus mechanical obstruction Acute kidney injury with vasomotor nephropathy UTI, Pseudomonas/ Earline Elevated TSH Mild rhabdomyolysis Hypertension Diabetes mellitus with hyperglycemia on admission CAD Hypothyroidism Chronic illness debilitymyopathy Obesity -CCM, nephrology, neurology, cardiology consulted, patient recommendations -S/p D10 and D5W gtt, on TF -S/p IV calcium gluconate, regular insulin, D50 -S/p transcutaneous pacing, intermittent demand pacer in place -Renal ultrasound findings consistent with acute on chronic kidney disease, mildly complex right renal cyst -Blood pressure monitoring per protocol -Accu-Cheks every 6, SSI, long acting insulin -IV hydralazine as needed -04/25 EEG is mildly abnormal with mild slowing noted throughout the recording, suggestive of mild cortical dysfunction and/or drug effect -04/20 EEG shows mildly abnormal record due to diffuse background slowing noted throughout the recording, intermittent motion artifact, patient intubated and sedated at time of study, no sign of seizures as well epilepticus noted, possible toxic metabolic encephalopathy, drug effect, possible postictal state cannot be totally excluded. -Avoid ACEi/ARB in setting of ROJELIO -Avoid AV arron blocking agents -Avoid nephrotoxic agents and renally dose medications -BB, hydralazine, amlodipine -TSH 14.1, T4 4.1, T3 1.1-started on levothyroxine -As needed racemic epinephrine -S/p steroids -s/p Antibiotic therapy -Trend CBC, BMP DVT/GI prophylaxis: Heparin subcu, PPI, SCDs to bilateral lower extremities while in bed Disposition: ICU The high probability of a clinically significant, sudden or life threatening deterioration of the [PULMONARY, CARDIAC, RENAL] system(s) required my full and direct attention, intervention and personal management. The aggregate critical care time was [35] minutes. This time is in addition to time spent performing reported procedures but includes the following: [X] Data Review and interpretation [X] Patient assessment and monitoring of vital signs [X] Documentation [X] Medication orders and management History Interval history: This is a 80-year-old female with hypertension, diabetes mellitus, WI, breast cancer s/p double mastectomy, and a TIA who presented with hypoglycemia and altered mental status on 04/15 via EMS. Per EMS patient was unresponsive on their arrival and her blood glucose was 38 and she received 1 amp of dextrose patient continued to be unresponsive and only moaned with her eyes deviating to the left. Work-up in the emergency department revealed SIRS, symptomatic bradycardia, acute metabolic encephalopathy, acute hypoxic respiratory failure, elevated TSH, hyperglycemia, hyponatremia, hyperkalemia, acute kidney injury with ATN, and rhabdomyolysis 04/16: Neurology consulted, COVID-19 PCR negative, D10 drip decreased and eventually discontinued by [facility] and started on D5W for 1 L. Hydralazine as needed. Patient had hyper kalemia today and was treated with D50, insulin and Kayexalate. This time examination patient is on assist control tidal volume 450, rate of 16, PEEP of 6 and 25% FiO2. 04/17: Patient started on low-dose beta-angel per cardiology, CPAP trial again per CCM, BUN/creatinine holding steady and hypochloremia/hyponatremia slightly improved and hypokalemia has resolved. This morning a KUB was obtained which was concerning for ileus versus mechanical obstruction and surgery was consulted. Patient was made n.p.o. and NG tube placed to wall suction. Patient was given suppository. Per RN patient did not have a BM even though she was given Kayexalate yesterday. Will obtain a KUB in the a.m. Neurology was consulted yesterday and will await further recommendations. Nephew updated at bedside today, Carlos Romero. 04/18: Neurology has ordered EEG/MRI B, [facility] continues to wean MV. Persistent low grade temperature so we will obtain BCx2/UA. Patient has improving leukocytosis, hyponatremia, renal function studies and hypochloremia. She has hypokalemia today which is being repleted. Surgery has signed off today and has okayed resumption of TF. [facility] will trial CPAP for longer today and plans to attempt extubation in AM. Family has requested transfer to [facility] and Dr. Gordon will attempt to contact transfer center. I updated her nephew, Carlos Romero over the phone today abouyt current events and update on transfer ([facility] will conduct a utilization review) 04/19: This morning patient is on CPAP trial at the time of examination, noted to be hypertensive and metoprolol increased to home dose, started on synthroid by [facility], lantus started re hyperglycemia, MRI completed with no acute findings. Severe hypokalemia (repleted and Mg pending). [facility] will contact CPAP trial again today with possible trial extubation tomorrow. 04/20: Patient's leukocytosis and kidney function tests continue to improve. Patient is hypertensive overnight we will restart home hydralazine. [facility] plans to extubate patient today. Family is attempting to transfer to another facility. EEG pending, RT will atmept to contact soil field technician. Urine culture grew gram negative rods. Increase in lantus 04/21: Increase in Lantus, repleted phos. Patient has started this afternoon and was given racemic epinephrine and started on steroids. Patient will have BiPAP as needed. We will recheck BMP in the a.m. renal function studies continues to decrease. Patient has been hypertensive on evaluation regimen has been changed. 04/22: Lantus increased for hyperglycemia and add amlodipine for better BP control. Patient is on steroids. OT suctioned by RN with catheter in oral care kit and received copious amounts of secretions. Cr continues to decrease. Culture grew Pseudomonas and was changed in accordance to sensitivity. Kerr removed today after clearance from nephrology. 04/23: MRI of the brain was done and unremarkable. Will obtain reconsult to nephrology for further assistance as patient remains in profound encephalopathy despite improvement of blood sugar. Will repeat chest x-ray as patient does have significant congestion physical exam. Tube feeds still ongoing. Continue aspiration precautions. Continue antibiotics when completed for Pseudomonas management 04/24: Neurology input noted, patient unfortunately with no improvement mental status milton, continues with congestion, will defer with Food Production Manager for lasix in the setting of renal failure. will give kayexlate for hyperkalemia, still moans and groans, mittens in place. 04/25: Patient currently intubated, on restraints for safety, Profund encephalopathy persist, although awake she is not following any commands, Call placed to [facility] to see if they will accept transfer for ENT evaluation, while CT neck was negative, it was degraded by motion and unable to determent why patient had this stridor, Racemic Epinephrine was given, [facility] is on ICU saturation, but will call back with an ENT to discuss case. Renal function mildly worse, continue to monitor. Per cardiology, no further arrhythmias noted since admission. Given short duration of atrial fibrillation, along with pt's age, renal fxn, and other co- morbidities,...will resume additional medical therapies for underlying severe multi-vessel CAD (bASA & Plavix). Pt has previously declined intervention of kn own lesions as per her Primary Compression Molding Machine Operator. 04/26: Now with febrile illness, ?developing infection, start on empiric abx, check lactate level, blood cultures, continue management per Distribution Field Technician, Mo nitor leukocytosis, agree with Trach, family updated about denials in transfer request from outside hospitals. 04/27: WBC improving some, still with fever despite antibotics, ID consulted. CXR clear, continue current management, Trach will be planned if ok with family. Blood sugar remains elevated, will adjust insulin LANTUS to 40 units. Patient had previously completed Cefepime. Mental status remains unchanged, still moves upper ext. continue restraints 04/28: Continue supportive care. No new fever noted. Critical care physician will determine if patient should be have a trial of extubation again or if we should proceed straight to trach. Again continue to monitor mental status for complete improvement. 04/29: Per Distribution Field Technician discussion with family, will proceed to Tracheostomy, Pat ients mental status still fluctuating, Continue current management. Surgeon consulted. 04/30: General surgery consulted for trach, continue to trend CBC and BMP. Kidney function slightly worsened today. Increase in Lantus. Tmax 100.2, per ID will consider imaging if leukocytosis remains elevated with fevers. Plavix held for possible tracheostomy next week. 05/01: Patient fever curve is trending down with improving leukocytosis. Patient renal function worsened today. She remains hyperglycemic and her Lantus was increased to her home dose of Novolin 70/30. Patient was rate controlled yester day due to T-max of 101. She remains on CMV tidal volume 450, rate of 10, PEEP of 6 and 30% FiO2. We will increase the water flushes given slight hypernatremia. Dr. Andrea updated nephew (Carlos) at bedside. CPAP trails. 05/02: Patient's hypernatremia and hyperchloremia slightly worsened and femur fractures were increased. Kidney functions remain the same however BUN is in the 100s. Nephrology is following. Kerr catheter was removed. Awaiting trach placement with possibility on Friday. 05/03: Patient grew Earline in her urine culture however per ID and the Kerr was already exchanged. Patient is on cefepime and Flagyl. Plavix still on hold awaiting trach. CCM started the patient on half-normal saline at 75 mL/h for 2 L related to azatoma and hypernatremia. Patient mental status continues to wax and wane. Creatinine is 3.1 today from 3.4 yesterday. Patient had a bowel movement today. Patient remains hyperglycemic and Lantus was changed from a.m. to p.m.. 05/04: Patient's renal function is improving, surgery obtain consent for trach/PEG scheduled for 05/07, antibiotics to end tomorrow. We will obtain BMP in the a.m. Lantus dosage change from AC to at bedtime in hopes of better glycemic control. 05/05: Patient Lantus dose is changed to twice daily in hopes of better glycemic control. Awaiting surgical procedure hopefully on Friday. Patient's BUN/creatinine improved and hypernatremia has resolved. 05/06: Patient has slight hypernatremia and hyperchloremia and improvement to BUN/creatinine. Better glycemic control. Awaiting trach on Friday. NGT was displaced but now replaced and TF resumed. 05/07 This is a 80-year-old female with HTN, DM, WI, breast CA s/p double mastectomy, TIA who presented with hypoglycemia, AMS who was admitted with SIRS, symptomatic bradycardia, acute metabolic encephalopathy, acute hypoxic respiratory failure, elevated TSH, hyperglycemia, hyponatremia, hypokalemia, ROJELIO and rhabdomyolysis. She is for Trach and PEG today. 05/08: s/p trach and PEG placement yesterday. cont to monitor, wean off from vent as tolertaed 05/09: Patient started on tube feeding and tolerating well. Currently on CPAP setting with newly placed trach. Discussed with case management and patient would need placement. Continue supportive care and follow clinically. 05/10: Continue supportive care, patient is tolerating tube feeding diet. Remains on CPAP with trach. Pending LTAC placement. 05/11: Continue supportive care, patient is tolerating tube feeding diet. Remains on CPAP with trach. Plan to wean off from Vent as tolerates and to place on t-piece. 05/12; Patient placed on t-piece today, tolerating TF, cont to monitor clinically. follow CBC/BMP 05/13: Remains on t-piece, plan to wean off to wall T-piece. If unable to wean off from vent then patient will need criteria for LTAC upon her insurance requirement. If she tolerates weaning trial and able to maintain T-piece then she will be discharged back to long-term. Ordered for a.m. labs. Continue to follow clinically with supportive care. 05/14: Pending placement. Patient back on Mechanical ventilation today with trach tube. Hemoglobin 7.0. Will transfuse 1 unit packed RBC. Continue to monitor clinically. 05/15: Pending placement, [facility] continues to trial patient on trach collar for as long as tolerated. Patient is H/H improved to 8/24.6 after 1 unit PRBC. Renal function continues to fluctuate and is currently at CR 2/BUN 42. Patient is slightly hyperkalemic today at 5.3 and received 30 g of Kionex. We will obtain a.m. BMP and continue to trend CBC. Patient is hypertensive and hydralazine dose has been increased. 05/16: Patient noted to have hyperkalemia again today and was treated. Patient continued T-piece on 20% FiO2 for over 24 hours. This afternoon patient was noted to be off of trach collar and SPO2 was still in the mid 90s. Trach collar was replaced. We will remove Kerr catheter and BladderScan the patient every 4 hours. Hospitalist Physical - Constitutional Vitals: Temp Pulse Resp BP Pulse Ox 98 F 81 23 109/58 100 05/16/21 16:00 05/16/21 18:00 05/16/21 18:00 05/16/21 18:00 05/16/21 18:00 General appearance: Present: no acute distress, other (intubated, on mechanical ventilation) - EENT Eyes: Present: PERRL, EOM intact ENT: poor dentition - Neck Neck: Present: normal ROM - Respiratory Respiratory effort: normal Respiratory: bilateral: CTA, diminished - Cardiovascular Rhythm: regular Heart Sounds: Present: S1 & S2. Absent: systolic murmur, diastolic murmur - Extremities Extremities: no ischemia, pulses intact, pulses symmetrical, No edema, normal temperature, normal color Peripheral Pulses: within normal limits - Abdominal General gastrointestinal: soft, non-tender, non-distended, normal bowel sounds - Integumentary Integumentary: Present: warm, dry - Psychiatric Psychiatric: cooperative - Neurologic Neurologic: moves all extremities - Allied Health Allied health notes reviewed: nursing, RT HEART Score - HEART Score Troponin: Troponin T 0.065 ng/mL (0.00-0.029) H 04/20/21 03:32 Results - Labs CBC & Chem 7: 05/15/21 05:51 05/16/21 06:40 Labs: Laboratory Last Values WBC 7.1 K/mm3 (4.5-11.0) 05/15/21 05:51 RBC 2.60 M/mm3 (3.65-5.03) L 05/15/21 05:51 Hgb 8.0 gm/dl (10.1-14.3) L 05/15/21 05:51 Hct 24.6 % (30.3-42.9) L 05/15/21 05:51 MCV 94 fl (79-97) 05/15/21 05:51 MCH 31 pg (28-32) 05/15/21 05:51 MCHC 33 % (30-34) 05/15/21 05:51 RDW 17.0 % (13.2-15.2) H 05/15/21 05:51 Plt Count 243 K/mm3 (140-440) 05/15/21 05:51 Lymph % (Auto) 21.1 % (13.4-35.0) 05/15/21 05:51 Isabela % (Auto) 15.3 % (0.0-7.3) H 05/15/21 05:51 Eos % (Auto) 2.9 % (0.0-4.3) 05/15/21 05:51 Baso % (Auto) 0.4 % (0.0-1.8) 05/15/21 05:51 Lymph # (Auto) 1.5 K/mm3 (1.2-5.4) 05/15/21 05:51 Isabela # (Auto) 1.1 K/mm3 (0.0-0.8) H 05/15/21 05:51 Eos # (Auto) 0.2 K/mm3 (0.0-0.4) 05/15/21 05:51 Baso # (Auto) 0.0 K/mm3 (0.0-0.1) 05/15/21 05:51 Add Manual Diff Complete 05/01/21 07:11 Total Counted 100 05/01/21 07:11 Seg Neutrophils % 60.3 % (40.0-70.0) 05/15/21 05:51 Seg Neuts % (Manual) 80.0 % (40.0-70.0) H 05/01/21 07:11 Band Neutrophils % 7.0 % 05/01/21 07:11 Lymphocytes % (Manual) 5.0 % (13.4-35.0) L 05/01/21 07:11 Monocytes % (Manual) 6.0 % (0.0-7.3) 05/01/21 07:11 Eosinophils % (Manual) 1.0 % (0.0-4.3) 05/01/21 07:11 Metamyelocytes % 1.0 % 05/01/21 07:11 Nucleated RBC % Not Reportable 05/01/21 07:11 Seg Neutrophils # 4.3 K/mm3 (1.8-7.7) 05/15/21 05:51 Seg Neutrophils # Man 9.8 K/mm3 (1.8-7.7) H 05/01/21 07:11 Band Neutrophils # 0.9 K/mm3 05/01/21 07:11 Lymphocytes # (Manual) 0.6 K/mm3 (1.2-5.4) L 05/01/21 07:11 Abs React Lymphs (Man) 0.0 K/mm3 05/01/21 07:11 Monocytes # (Manual) 0.7 K/mm3 (0.0-0.8) 05/01/21 07:11 Eosinophils # (Manual) 0.1 K/mm3 (0.0-0.4) 05/01/21 07:11 Basophils # (Manual) 0.0 K/mm3 (0.0-0.1) 05/01/21 07:11 Metamyelocytes # 0.1 K/mm3 05/01/21 07:11 Myelocytes # 0.0 K/mm3 05/01/21 07:11 Promyelocytes # 0.0 K/mm3 05/01/21 07:11 Blast Cells # 0.0 K/mm3 05/01/21 07:11 WBC Morphology Not Reportable 05/01/21 07:11 Hypersegmented Neuts Not Reportable 05/01/21 07:11 Hyposegmented Neuts Not Reportable 05/01/21 07:11 Hypogranular Neuts Not Reportable 05/01/21 07:11 Smudge Cells Not Reportable 05/01/21 07:11 Toxic Granulation Not Reportable 05/01/21 07:11 Toxic Vacuolation Not Reportable 05/01/21 07:11 Dohle Bodies Not Reportable 05/01/21 07:11 Pelger-Huet Anomaly Not Reportable 05/01/21 07:11 Peterson Rods Not Reportable 05/01/21 07:11 Platelet Estimate Consistent w auto 05/01/21 07:11 Clumped Platelets Not Reportable 05/01/21 07:11 Plt Clumps, EDTA Not Reportable 05/01/21 07:11 Large Platelets Not Reportable 05/01/21 07:11 Giant Platelets Not Reportable 05/01/21 07:11 Platelet Satelliting Not Reportable 05/01/21 07:11 Plt Morphology Comment Not Reportable 05/01/21 07:11 RBC Morphology Normal 05/01/21 07:11 Dimorphic RBCs Not Reportable 05/01/21 07:11 Polychromasia Not Reportable 05/01/21 07:11 Hypochromasia Not Reportable 05/01/21 07:11 Poikilocytosis Not Reportable 05/01/21 07:11 Anisocytosis Not Reportable 05/01/21 07:11 Microcytosis Not Reportable 05/01/21 07:11 Macrocytosis Not Reportable 05/01/21 07:11 Spherocytes Not Reportable 05/01/21 07:11 Pappenheimer Bodies Not Reportable 05/01/21 07:11 Sickle Cells Not Reportable 05/01/21 07:11 Target Cells Not Reportable 05/01/21 07:11 Tear Drop Cells Not Reportable 05/01/21 07:11 Ovalocytes Not Reportable 05/01/21 07:11 Helmet Cells Not Reportable 05/01/21 07:11 [place] Bodies Not Reportable 05/01/21 07:11 Frederick Rings Not Reportable 05/01/21 07:11 Theo Cells Not Reportable 05/01/21 07:11 Bite Cells Not Reportable 05/01/21 07:11 Crenated Cell Not Reportable 05/01/21 07:11 Elliptocytes Not Reportable 05/01/21 07:11 Acanthocytes (Spur) Not Reportable 05/01/21 07:11 Rouleaux Not Reportable 05/01/21 07:11 Hemoglobin C Crystals Not Reportable 05/01/21 07:11 Schistocytes Not Reportable 05/01/21 07:11 Malaria parasites Not Reportable 05/01/21 07:11 James Bodies Not Reportable 05/01/21 07:11 Hem Pathologist Commnt No 05/01/21 07:11 PT 14.8 Sec. (12.2-14.9) 05/07/21 08:20 INR 1.11 (0.87-1.13) 05/07/21 08:20 APTT 31.8 Sec. (24.2-36.6) 04/15/21 17:20 ABG pH 7.473 (7.320-7.450) H 05/15/21 22:00 POC ABG pCO2 35.5 mmHg (32.0-48.0) 05/15/21 22:00 POC ABG pO2 77.7 mmHg (83-108) L 05/15/21 22:00 POC ABG HCO3 25.4 05/15/21 22:00 ABG O2 Saturation 96.1 (0-100) 05/15/21 22:00 POC ABG Base Excess 1.8 05/15/21 22:00 ABG Hemoglobin 8.4 (12.0-17.5) L 05/15/21 22:00 ABG Oxyhemoglobin 95.0 (94-98) 05/15/21 22:00 ABG Methemoglobin 0.3 (0.0-1.5) 05/15/21 22:00 ABG Sodium 138.5 mmol/L (136.0-145.0) 05/15/21 22:00 ABG Potassium 4.7 mmol/L (3.40-4.50) H 05/15/21 22:00 ABG Chloride 105.0 mmol/L (98-107) 05/15/21 22:00 ABG Glucose 104 mg/dL (65-95) H 05/15/21 22:00 Carboxyhemoglobin 0.8 (0.5-1.5) 05/15/21 22:00 FiO2 % 28.0 05/15/21 22:00 Sodium 139 mmol/L (137-145) 05/16/21 06:40 Potassium 5.4 mmol/L (3.6-5.0) H 05/16/21 06:40 Chloride 104.4 mmol/L (98-107) 05/16/21 06:40 Carbon Dioxide 26 mmol/L (22-30) 05/16/21 06:40 Anion Gap 14 mmol/L 05/16/21 06:40 BUN 39 mg/dL (7-17) H 05/16/21 06:40 Creatinine 2.0 mg/dL (0.6-1.2) H 05/16/21 06:40 Estimated GFR 29 ml/min 05/16/21 06:40 BUN/Creatinine Ratio 20 % 05/16/21 06:40 Glucose 165 mg/dL (65-100) H 05/16/21 06:40 POC Glucose 157 mg/dL (70-105) H 05/16/21 17:18 Lactic Acid 1.10 mmol/L (0.7-2.0) 04/26/21 09:30 Calcium 9.9 mg/dL (8.4-10.2) 05/16/21 06:40 Phosphorus 2.60 mg/dL (2.5-4.5) 04/22/21 08:00 Magnesium 2.10 mg/dL (1.7-2.3) 04/23/21 07:02 Total Bilirubin 0.30 mg/dL (0.1-1.2) 04/28/21 04:13 Direct Bilirubin < 0.2 mg/dL (0-0.2) 04/28/21 04:13 Indirect Bilirubin 0.1 mg/dL 04/28/21 04:13 AST 61 units/L (5-40) H 04/28/21 04:13 ALT 64 units/L (7-56) H 04/28/21 04:13 Alkaline Phosphatase 95 units/L (35-129) 04/28/21 04:13 Ammonia 46.0 umol/L (25-60) 04/15/21 17:20 Total Creatine Kinase 427 units/L (30-135) H 04/18/21 05:34 CK-MB (CK-2) 9.1 ng/mL (0.0-4.0) H 04/17/21 15:35 CK-MB (CK-2) Rel Index 1.4 (0-4) 04/17/21 15:35 Troponin T 0.065 ng/mL (0.00-0.029) H 04/20/21 03:32 NT-Pro-B Natriuret Pep 697.9 pg/mL (0-900) 04/15/21 17:20 Total Protein 6.2 g/dL (6.3-8.2) L 04/28/21 04:13 Albumin 2.6 g/dL (3.9-5) L 04/28/21 04:13 Albumin/Globulin Ratio 0.7 % 04/28/21 04:13 Triglycerides 103 mg/dL (2-149) 04/17/21 05:04 Cholesterol 122 mg/dL (50-199) 04/17/21 05:04 LDL Cholesterol Direct 55 mg/dL (50-130) 04/17/21 05:04 HDL Cholesterol 61 mg/dL (40-59) H 04/17/21 05:04 Cholesterol/HDL Ratio 2.00 % 04/17/21 05:04 Procalcitonin 0.20 ng/mL (<0.15) 04/16/21 19:01 TSH 14.190 mlU/mL (0.270-4.200) H 04/15/21 17:20 Thyroxine (T4) 4.1 ug/dL (4.0-12.0) 04/16/21 19:01 Free T3 Index 1.1 pg/mL (2.3-4.2) L 04/16/21 19:01 Arterial Blood Glucose 104 mg/dL (65-95) H 05/15/21 22:00 Arterial Blood Ionized Calcium 5.1 mg/dL (4.6-5.3) 05/15/21 22:00 Urine Color Yellow (Yellow) 04/30/21 17:45 Urine Turbidity Cloudy (Clear) 04/30/21 17:45 Urine pH 5.0 (5.0-7.0) 04/30/21 17:45 Ur Specific [place] 1.016 (1.003-1.030) 04/30/21 17:45 Urine Protein 100 mg/dl mg/dL (Negative) 04/30/21 17:45 Urine Glucose (UA) Neg mg/dL (Negative) 04/30/21 17:45 Urine Ketones Neg mg/dL (Negative) 04/30/21 17:45 Urine Blood Mod (Negative) 04/30/21 17:45 Urine Nitrite Neg (Negative) 04/30/21 17:45 Urine Bilirubin Neg (Negative) 04/30/21 17:45 Urine Urobilinogen < 2.0 mg/dL (<2.0) 04/30/21 17:45 Ur Leukocyte Esterase Mod (Negative) 04/30/21 17:45 Urine WBC (Auto) 48.0 /HPF (0.0-6.0) H 04/30/21 17:45 Urine RBC (Auto) 103.0 /HPF (0.0-6.0) 04/30/21 17:45 U Epithel Cells (Auto) < 1.0 /HPF (0-13.0) 04/16/21 00:09 Urine Bacteria (Auto) 1+ /HPF (Negative) 04/16/21 00:09 Urine Mucus Few /HPF 04/30/21 17:45 Urine Yeast (Budding) 3+ /HPF 04/30/21 17:45 Urine Creatinine 24.4 mg/dL (0.1-20.0) H 04/16/21 00:12 Urine Sodium 97 mmol/L 04/16/21 00:12 Random Vancomycin 15.5 ug/mL (0-40.0) 04/27/21 07:52 Salicylates 4.1 mg/dL (2.8-20.0) 04/15/21 17:20 Acetaminophen 5.0 ug/mL (10.0-30.0) L 04/15/21 17:20 Plasma/Serum Alcohol 0.02 % (0-0.07) 04/15/21 17:20 Coronavirus (PCR) Negative (Negative) 04/16/21 Unknown Blood Type B POSITIVE 05/14/21 19:00 Antibody Screen Negative 05/14/21 19:00 Crossmatch See Detail 05/14/21 19:00 Kerr/IV: Voiding Method Indwelling Catheter Active Medications - Current Medications Current Medications: Generic Name Dose Route Start Last Admin Trade Name Freq PRN Reason Stop Dose Admin Acetaminophen 650 mg 04/15/21 19:11 04/30/21 20:14 Acetaminophen 325 Mg Tab PO 650 mg Q6H PRN Administration Pain MILD(1-3)/Fever >100.5/SEXTON Albuterol 2.5 mg 05/09/21 13:16 05/16/21 09:40 Albuterol 2.5 Mg/3 Ml Nebu IH 2.5 mg Q6HRT PRN Administration Shortness Of Breath Amlodipine Besylate 10 mg 04/25/21 10:00 05/16/21 10:02 Amlodipine 10 Mg Tab PO 10 mg DAILY WOLFGANG Administration Lipase/Protease/Amylase 1 each 04/16/21 12:52 Lipase 10,500/Protease 25,000/Amylase 43,750 (Units) Dr Simpson FEEDTUBE PRN PRN For Clogged Feeding Tube Aspirin 81 mg 04/25/21 10:00 05/16/21 10:03 Aspirin 81 Mg Tab Chew PO 81 mg QDAY WOLFGANG Administration Bisacodyl 10 mg 04/17/21 11:01 05/03/21 09:50 Bisacodyl 10 Mg Rect Supp MI 10 mg QDAY PRN Administration Constipation Brimonidine Tartrate 1 drops 04/17/21 22:00 05/16/21 10:05 Brimonidine 0.15% Ophth Soln OU 1 drops BID WOLFGANG Administration Docusate Sodium 100 mg 04/29/21 15:00 05/16/21 10:03 Docusate Sodium 100 Mg/10 Ml Oral Liqd PO 100 mg BID WOLFGANG Administration Famotidine 20 mg 04/17/21 10:00 05/16/21 09:45 Famotidine 20 Mg Tab PO 20 mg DAILY WOLFGANG Administration Fentanyl 50 mcg 05/13/21 09:30 Fentanyl 100 Mcg/2 Ml Inj IV Q10MIN PRN ANALGESIA Heparin Sodium (Porcine) 5,000 unit 04/15/21 22:00 05/16/21 10:03 Heparin 5,000 Unit/1 Ml Vial SUB-Q 5,000 unit Q12HR WOLFGANG Administration Hydralazine HCl 10 mg 04/16/21 18:00 04/24/21 05:25 Hydralazine 20 Mg/1 Ml Inj IV 10 mg Q4HR PRN Administration Hypertension Hydralazine HCl 100 mg 05/15/21 14:00 05/16/21 13:10 Hydralazine 100 Mg Tab PO 100 mg TID WOLFGANG Administration Hydrophilic Ointment 1 applic 04/15/21 17:24 Lip Therapy Vaseline TP Q2HR PRN Dry Lips Fentanyl Citrate 2,000 mcg in 100 mls @ 4.65 mls/hr 05/13/21 10:00 Fentanyl Drip Premix IV TITR WOLFGANG Protocol 1 MCG/KG/HR Insulin Human Isoph/Insulin Regular 25 unit 05/09/21 08:00 05/16/21 17:43 Insulin Nph/Regular 70/30 Inj SUB-Q 25 unit BIDDIAB WOLFGANG Administration Insulin Human Lispro 0 unit 04/16/21 15:00 05/16/21 17:42 Insulin Lispro 100 Unit/Ml SUB-Q 3 unit Q6HR WOLFGANG Administration Protocol Latanoprost 1 drops 04/17/21 18:00 05/16/21 17:46 Latanoprost 0.005% Ophth Soln 2.5 Ml OU 1 drops QPM WOLFGANG Administration Levothyroxine Sodium 25 mcg 04/19/21 06:00 05/16/21 05:24 Levothyroxine 25 Mcg Tab PO 25 mcg DAILY@0600 WOLFGANG Administration Lorazepam 2 mg 05/13/21 09:30 Lorazepam 2 Mg/Ml Vial IV Q4H PRN Agitation Metoprolol Tartrate 25 mg 04/19/21 10:00 05/16/21 10:03 Metoprolol Tartrate 25 Mg Tab PO 25 mg BID WOLFGANG Administration Multi-Ingred Cream/Lotion/Oil/Oint 1 applic 04/15/21 17:24 05/16/21 10:04 Mineral Oil/Petrolatum, White Ophth Oint 3.5 Gm OU 1 applic Q4HR PRN Administration Dry Eye(s) Pravastatin Sodium 20 mg 04/19/21 22:00 05/15/21 21:28 Pravastatin 20 Mg Tab PO 20 mg QHS WOLFGANG Administration Scopolamine 1 each 04/20/21 18:00 05/14/21 10:52 Scopolamine Transdermal Patch 72 Hr TD 1 each Q3D WOLFGANG Administration Simple Syrup 15 ml 04/16/21 12:52 Simple Syrup 15 Ml FEEDTUBE PRN PRN Hypoglycemia Simple Syrup 30 ml 04/16/21 12:52 Simple Syrup 15 Ml FEEDTUBE PRN PRN Hypoglycemia Sodium Bicarbonate 325 mg 04/16/21 12:52 Sodium Bicarbonate 325 Mg Tab FEEDTUBE PRN PRN For Clogged Feeding Tube Sodium Chloride 10 ml 04/15/21 22:00 05/16/21 09:43 Sodium Chloride 0.9% 10 Ml Flush Syringe IV 10 ml BID WOLFGANG Administration Sodium Chloride 10 ml 04/15/21 19:11 04/24/21 05:27 Sodium Chloride 0.9% 10 Ml Flush Syringe IV 10 ml PRN PRN Administration LINE FLUSH Tamsulosin HCl 0.4 mg 04/25/21 14:00 05/16/21 10:03 Tamsulosin 0.4 Mg Cap PO 0.4 mg QDAY WOLFGANG Administration Timolol Maleate 1 drops 04/19/21 10:00 05/16/21 10:05 Timolol 0.5% Ophth Soln 5 Ml OU 1 drops QDAY WOLFGANG Administration Nutrition/Malnutrition Assess - Dietary Evaluation Nutrition/Malnutrition Findings: Nutrition Notes Start: 04/16/21 12:31 Freq: Status: Active Protocol: Document 05/16/21 09:23 (Rec: 05/16/21 09:27 [id number]) Nutrition Notes Initial or Follow up Reassessment Current Diagnosis Acute Kidney Injury,Coronary Artery Disease,Diabetes, Hypertension Other Pertinent Diagnosis UTI, acute metabolic encephalopathy Current Diet TF - Glucerna 1.2 at 50ml/hr Labs/Tests K 5.4 BUN 39 Cr 2 Pertinent Medications Kionex Height 5 ft 6 in Weight 93 kg [place] Body Weight (kg) 59.09 BMI 33.0 Weight Status Obese Subjective/Other Information FU for TF tolerance. BUN and Cr improved, however, pt continues to have hyperkalemia . Will change to low K formula . Unable to obtain new wt. Percent of energy/protein needs met: 100% energy 95% pro Burn Absent Trauma Absent Difficulty In Swallowing Current % PO Negligible Minimum of two criteria No physical signs of malnutrition #1 Nutrition Diagnosis Inadequate oral intake Diagnosis Progress(for reassessment Continues documentation) Is patient on ventilator? No Is Patient Ambulatory and/or Out of Bed No [facility] 1694.856 Kcal/Kg value to use for calculation 15 Approximate Energy Requirements Using 1395 kcal/Kg Calculation Used for Recommendations Kcal/kg Additional Notes Pro needs 1-1.2g/kg AdjBW: 76kg (76-91g) Fluid needs 1ml/kcal Nutrition Intervention Change Diet Order: Change TF Nutrition Support: Nepro 1.8 at 35 ml/hr Flush 150 ml q4h Kcal 1,512 Protein (gm) 68 Fluid (mL) 611 Goal #1 Start and tolerate new TF Goal #2 TF to need needs as best as possible Anticipated Discharge Needs: unable to determine at this time Follow-Up By: 05/18/21 Additional Comments FU for new TF <BRISSA NGUYEN - Last Filed: 05/17/21 17:58> Assessment and Plan Assessment and plan: Patient seen and examined by myself, agree with assessment plan as outlined by nurse practitioner above. Still working on placement for the patient. Patient continues to be on vent per trach collar. Hospitalist Physical - Constitutional Vitals: Temp Pulse Resp BP Pulse Ox 98.7 F 76 19 131/54 99 05/17/21 16:00 05/17/21 17:30 05/17/21 17:30 05/17/21 17:30 05/17/21 17:30 HEART Score - HEART Score Troponin: Troponin T 0.065 ng/mL (0.00-0.029) H 04/20/21 03:32 Results - Labs CBC & Chem 7: 05/17/21 07:43 05/17/21 07:43 Labs: Laboratory Last Values WBC 10.0 K/mm3 (4.5-11.0) 05/17/21 07:43 RBC 2.83 M/mm3 (3.65-5.03) L 05/17/21 07:43 Hgb 8.6 gm/dl (10.1-14.3) L 05/17/21 07:43 Hct 26.8 % (30.3-42.9) L 05/17/21 07:43 MCV 95 fl (79-97) 05/17/21 07:43 MCH 30 pg (28-32) 05/17/21 07:43 MCHC 32 % (30-34) 05/17/21 07:43 RDW 16.2 % (13.2-15.2) H 05/17/21 07:43 Plt Count 290 K/mm3 (140-440) 05/17/21 07:43 Lymph % (Auto) 21.1 % (13.4-35.0) 05/15/21 05:51 [place] % (Auto) 15.3 % (0.0-7.3) H 05/15/21 05:51 Eos % (Auto) 2.9 % (0.0-4.3) 05/15/21 05:51 Baso % (Auto) 0.4 % (0.0-1.8) 05/15/21 05:51 Lymph # (Auto) 1.5 K/mm3 (1.2-5.4) 05/15/21 05:51 Isabel[place] # (Auto) 1.1 K/mm3 (0.0-0.8) H 05/15/21 05:51 Eos # (Auto) 0.2 K/mm3 (0.0-0.4) 05/15/21 05:51 Baso # (Auto) 0.0 K/mm3 (0.0-0.1) 05/15/21 05:51 Add Manual Diff Complete 05/01/21 07:11 Total Counted 100 05/01/21 07:11 Seg Neutrophils % 60.3 % (40.0-70.0) 05/15/21 05:51 Seg Neuts % (Manual) 80.0 % (40.0-70.0) H 05/01/21 07:11 Band Neutrophils % 7.0 % 05/01/21 07:11 Lymphocytes % (Manual) 5.0 % (13.4-35.0) L 05/01/21 07:11 Monocytes % (Manual) 6.0 % (0.0-7.3) 05/01/21 07:11 Eosinophils % (Manual) 1.0 % (0.0-4.3) 05/01/21 07:11 Metamyelocytes % 1.0 % 05/01/21 07:11 Nucleated RBC % Not Reportable 05/01/21 07:11 Seg Neutrophils # 4.3 K/mm3 (1.8-7.7) 05/15/21 05:51 Seg Neutrophils # Man 9.8 K/mm3 (1.8-7.7) H 05/01/21 07:11 Band Neutrophils # 0.9 K/mm3 05/01/21 07:11 Lymphocytes # (Manual) 0.6 K/mm3 (1.2-5.4) L 05/01/21 07:11 Abs React Lymphs (Man) 0.0 K/mm3 05/01/21 07:11 Monocytes # (Manual) 0.7 K/mm3 (0.0-0.8) 05/01/21 07:11 Eosinophils # (Manual) 0.1 K/mm3 (0.0-0.4) 05/01/21 07:11 Basophils # (Manual) 0.0 K/mm3 (0.0-0.1) 05/01/21 07:11 Metamyelocytes # 0.1 K/mm3 05/01/21 07:11 Myelocytes # 0.0 K/mm3 05/01/21 07:11 Promyelocytes # 0.0 K/mm3 05/01/21 07:11 Blast Cells # 0.0 K/mm3 05/01/21 07:11 WBC Morphology Not Reportable 05/01/21 07:11 Hypersegmented Neuts Not Reportable 05/01/21 07:11 Hyposegmented Neuts Not Reportable 05/01/21 07:11 Hypogranular Neuts Not Reportable 05/01/21 07:11 Smudge Cells Not Reportable 05/01/21 07:11 Toxic Granulation Not Reportable 05/01/21 07:11 Toxic Vacuolation Not Reportable 05/01/21 07:11 Dohle Bodies Not Reportable 05/01/21 07:11 Pelger-Huet Anomaly Not Reportable 05/01/21 07:11 Peterson Rods Not Reportable 05/01/21 07:11 Platelet Estimate Consistent w auto 05/01/21 07:11 Clumped Platelets Not Reportable 05/01/21 07:11 Plt Clumps, EDTA Not Reportable 05/01/21 07:11 Large Platelets Not Reportable 05/01/21 07:11 Giant Platelets Not Reportable 05/01/21 07:11 Platelet Satelliting Not Reportable 05/01/21 07:11 Plt Morphology Comment Not Reportable 05/01/21 07:11 RBC Morphology Normal 05/01/21 07:11 Dimorphic RBCs Not Reportable 05/01/21 07:11 Polychromasia Not Reportable 05/01/21 07:11 Hypochromasia Not Reportable 05/01/21 07:11 Poikilocytosis Not Reportable 05/01/21 07:11 Anisocytosis Not Reportable 05/01/21 07:11 Microcytosis Not Reportable 05/01/21 07:11 Macrocytosis Not Reportable 05/01/21 07:11 Spherocytes Not Reportable 05/01/21 07:11 Pappenheimer Bodies Not Reportable 05/01/21 07:11 Sickle Cells Not Reportable 05/01/21 07:11 Target Cells Not Reportable 05/01/21 07:11 Tear Drop Cells Not Reportable 05/01/21 07:11 Ovalocytes Not Reportable 05/01/21 07:11 Helmet Cells Not Reportable 05/01/21 07:11 [place] Bodies Not Reportable 05/01/21 07:11 [place] Rings Not Reportable 05/01/21 07:11 Amigo Cells Not Reportable 05/01/21 07:11 Bite Cells Not Reportable 05/01/21 07:11 Crenated Cell Not Reportable 05/01/21 07:11 Elliptocytes Not Reportable 05/01/21 07:11 Acanthocytes (Spur) Not Reportable 05/01/21 07:11 Rouleaux Not Reportable 05/01/21 07:11 Hemoglobin C Crystals Not Reportable 05/01/21 07:11 Schistocytes Not Reportable 05/01/21 07:11 Malaria parasites Not Reportable 05/01/21 07:11 James Bodies Not Reportable 05/01/21 07:11 Hem Pathologist Commnt No 05/01/21 07:11 PT 14.8 Sec. (12.2-14.9) 05/07/21 08:20 INR 1.11 (0.87-1.13) 05/07/21 08:20 APTT 31.8 Sec. (24.2-36.6) 04/15/21 17:20 ABG pH 7.473 (7.320-7.450) H 05/15/21 22:00 POC ABG pCO2 35.5 mmHg (32.0-48.0) 05/15/21 22:00 POC ABG pO2 77.7 mmHg (83-108) L 05/15/21 22:00 POC ABG HCO3 25.4 05/15/21 22:00 ABG O2 Saturation 96.1 (0-100) 05/15/21 22:00 POC ABG Base Excess 1.8 05/15/21 22:00 ABG Hemoglobin 8.4 (12.0-17.5) L 05/15/21 22:00 ABG Oxyhemoglobin 95.0 (94-98) 05/15/21 22:00 ABG Methemoglobin 0.3 (0.0-1.5) 05/15/21 22:00 ABG Sodium 138.5 mmol/L (136.0-145.0) 05/15/21 22:00 ABG Potassium 4.7 mmol/L (3.40-4.50) H 05/15/21 22:00 ABG Chloride 105.0 mmol/L (98-107) 05/15/21 22:00 ABG Glucose 104 mg/dL (65-95) H 05/15/21 22:00 Carboxyhemoglobin 0.8 (0.5-1.5) 05/15/21 22:00 FiO2 % 28.0 05/15/21 22:00 Sodium 140 mmol/L (137-145) 05/17/21 07:43 Potassium 4.5 mmol/L (3.6-5.0) 05/17/21 07:43 Chloride 102.4 mmol/L (98-107) 05/17/21 07:43 Carbon Dioxide 27 mmol/L (22-30) 05/17/21 07:43 Anion Gap 15 mmol/L 05/17/21 07:43 BUN 39 mg/dL (7-17) H 05/17/21 07:43 Creatinine 2.1 mg/dL (0.6-1.2) H 05/17/21 07:43 Estimated GFR 27 ml/min 05/17/21 07:43 BUN/Creatinine Ratio 19 % 05/17/21 07:43 Glucose 183 mg/dL (65-100) H 05/17/21 07:43 POC Glucose 182 mg/dL (70-105) H 05/17/21 11:11 Lactic Acid 1.10 mmol/L (0.7-2.0) 04/26/21 09:30 Calcium 9.8 mg/dL (8.4-10.2) 05/17/21 07:43 Phosphorus 2.60 mg/dL (2.5-4.5) 04/22/21 08:00 Magnesium 2.10 mg/dL (1.7-2.3) 04/23/21 07:02 Total Bilirubin 0.30 mg/dL (0.1-1.2) 04/28/21 04:13 Direct Bilirubin < 0.2 mg/dL (0-0.2) 04/28/21 04:13 Indirect Bilirubin 0.1 mg/dL 04/28/21 04:13 AST 61 units/L (5-40) H 04/28/21 04:13 ALT 64 units/L (7-56) H 04/28/21 04:13 Alkaline Phosphatase 95 units/L (35-129) 04/28/21 04:13 Ammonia 46.0 umol/L (25-60) 04/15/21 17:20 Total Creatine Kinase 63 units/L (30-135) 05/17/21 07:43 CK-MB (CK-2) 9.1 ng/mL (0.0-4.0) H 04/17/21 15:35 CK-MB (CK-2) Rel Index 1.4 (0-4) 04/17/21 15:35 Troponin T 0.065 ng/mL (0.00-0.029) H 04/20/21 03:32 NT-Pro-B Natriuret Pep 697.9 pg/mL (0-900) 04/15/21 17:20 Total Protein 6.2 g/dL (6.3-8.2) L 04/28/21 04:13 Albumin 2.6 g/dL (3.9-5) L 04/28/21 04:13 Albumin/Globulin Ratio 0.7 % 04/28/21 04:13 Triglycerides 103 mg/dL (2-149) 04/17/21 05:04 Cholesterol 122 mg/dL (50-199) 04/17/21 05:04 LDL Cholesterol Direct 55 mg/dL (50-130) 04/17/21 05:04 HDL Cholesterol 61 mg/dL (40-59) H 04/17/21 05:04 Cholesterol/HDL Ratio 2.00 % 04/17/21 05:04 Procalcitonin 0.20 ng/mL (<0.15) 04/16/21 19:01 TSH 14.190 mlU/mL (0.270-4.200) H 04/15/21 17:20 Thyroxine (T4) 4.1 ug/dL (4.0-12.0) 04/16/21 19:01 Free T3 Index 1.1 pg/mL (2.3-4.2) L 04/16/21 19:01 Arterial Blood Glucose 104 mg/dL (65-95) H 05/15/21 22:00 Arterial Blood Ionized Calcium 5.1 mg/dL (4.6-5.3) 05/15/21 22:00 Urine Color Yellow (Yellow) 04/30/21 17:45 Urine Turbidity Cloudy (Clear) 04/30/21 17:45 Urine pH 5.0 (5.0-7.0) 04/30/21 17:45 Ur Specific [place] 1.016 (1.003-1.030) 04/30/21 17:45 Urine Protein 100 mg/dl mg/dL (Negative) 04/30/21 17:45 Urine Glucose (UA) Neg mg/dL (Negative) 04/30/21 17:45 Urine Ketones Neg mg/dL (Negative) 04/30/21 17:45 Urine Blood Mod (Negative) 04/30/21 17:45 Urine Nitrite Neg (Negative) 04/30/21 17:45 Urine Bilirubin Neg (Negative) 04/30/21 17:45 Urine Urobilinogen < 2.0 mg/dL (<2.0) 04/30/21 17:45 Ur Leukocyte Esterase Mod (Negative) 04/30/21 17:45 Urine WBC (Auto) 48.0 /HPF (0.0-6.0) H 04/30/21 17:45 Urine RBC (Auto) 103.0 /HPF (0.0-6.0) 04/30/21 17:45 U Epithel Cells (Auto) < 1.0 /HPF (0-13.0) 04/16/21 00:09 Urine Bacteria (Auto) 1+ /HPF (Negative) 04/16/21 00:09 Urine Mucus Few /HPF 04/30/21 17:45 Urine Yeast (Budding) 3+ /HPF 04/30/21 17:45 Urine Creatinine 24.4 mg/dL (0.1-20.0) H 04/16/21 00:12 Urine Sodium 97 mmol/L 04/16/21 00:12 Random Vancomycin 15.5 ug/mL (0-40.0) 04/27/21 07:52 Salicylates 4.1 mg/dL (2.8-20.0) 04/15/21 17:20 Acetaminophen 5.0 ug/mL (10.0-30.0) L 04/15/21 17:20 Plasma/Serum Alcohol 0.02 % (0-0.07) 04/15/21 17:20 Coronavirus (PCR) Negative (Negative) 04/16/21 Unknown Blood Type B POSITIVE 05/14/21 19:00 Antibody Screen Negative 05/14/21 19:00 Crossmatch See Detail 05/14/21 19:00 Kerr/IV: Voiding Method External Female Catheter Active Medications - Current Medications Current Medications: Generic Name Dose Route Start Last Admin Trade Name Freq PRN Reason Stop Dose Admin Acetaminophen 650 mg 04/15/21 19:11 05/17/21 12:33 Acetaminophen 325 Mg Tab PO 650 mg Q6H PRN Administration Pain MILD(1-3)/Fever >100.5/SEXTON Albuterol 2.5 mg 05/09/21 13:16 05/16/21 09:40 Albuterol 2.5 Mg/3 Ml Nebu IH 2.5 mg Q6HRT PRN Administration Shortness Of Breath Amlodipine Besylate 10 mg 04/25/21 10:00 05/17/21 10:00 Amlodipine 10 Mg Tab PO Not Given DAILY WOLFGANG Amlodipine Besylate 2.5 mg 05/18/21 10:00 Amlodipine 5 Mg Tab PO QDAY WOLFGANG Lipase/Protease/Amylase 1 each 04/16/21 12:52 Lipase 10,500/Protease 25,000/Amylase 43,750 (Units) Dr Simpson FEEDTUBE PRN PRN For Clogged Feeding Tube Aspirin 81 mg 04/25/21 10:00 05/17/21 09:33 Aspirin 81 Mg Tab Chew PO 81 mg QDAY WOLFGANG Administration Bisacodyl 10 mg 04/17/21 11:01 05/03/21 09:50 Bisacodyl 10 Mg Rect Supp MI 10 mg QDAY PRN Administration Constipation Brimonidine Tartrate 1 drops 04/17/21 22:00 05/17/21 09:31 Brimonidine 0.15% Ophth Soln OU 1 drops BID WOLFGANG Administration Docusate Sodium 100 mg 04/29/21 15:00 05/17/21 09:33 Docusate Sodium 100 Mg/10 Ml Oral Liqd PO 100 mg BID WOLFGANG Administration Famotidine 20 mg 04/17/21 10:00 05/17/21 09:34 Famotidine 20 Mg Tab PO 20 mg DAILY WOLFGANG Administration Fentanyl 50 mcg 05/13/21 09:30 Fentanyl 100 Mcg/2 Ml Inj IV Q10MIN PRN ANALGESIA Glycopyrrolate 1 mg 05/17/21 20:00 Glycopyrrolate 1 Mg Tab PO TID WOLFGANG Heparin Sodium (Porcine) 5,000 unit 04/15/21 22:00 05/17/21 09:34 Heparin 5,000 Unit/1 Ml Vial SUB-Q 5,000 unit Q12HR WOLFGANG Administration Hydralazine HCl 10 mg 04/16/21 18:00 05/17/21 03:32 Hydralazine 20 Mg/1 Ml Inj IV 10 mg Q4HR PRN Administration Hypertension Hydrophilic Ointment 1 applic 04/15/21 17:24 Lip Therapy Vaseline TP Q2HR PRN Dry Lips Fentanyl Citrate 2,000 mcg in 100 mls @ 4.65 mls/hr 05/13/21 10:00 Fentanyl Drip Premix IV TITR [facility] Protocol 1 MCG/KG/HR Sodium Chloride 1,000 mls @ 75 mls/hr 05/17/21 15:00 05/17/21 15:15 Nacl 0.9% 1000 Ml IV 05/19/21 04:19 75 mls/hr DIRECT WOLFGANG Administration Insulin Human Isoph/Insulin Regular 25 unit 05/09/21 08:00 05/17/21 17:10 Insulin Nph/Regular 70/30 Inj SUB-Q 25 unit BIDDIAB WOLFGANG Administration Insulin Human Lispro 0 unit 04/16/21 15:00 05/17/21 12:23 Insulin Lispro 100 Unit/Ml SUB-Q 3 unit Q6HR WOLFGAGN Administration Protocol Latanoprost 1 drops 04/17/21 18:00 05/17/21 17:48 Latanoprost 0.005% Ophth Soln 2.5 Ml OU 1 drops QPM WOLFGANG Administration Levothyroxine Sodium 25 mcg 04/19/21 06:00 05/17/21 05:40 Levothyroxine 25 Mcg Tab PO 25 mcg DAILY@0600 [facility] Administration Lorazepam 2 mg 05/13/21 09:30 Lorazepam 2 Mg/Ml Vial IV Q4H PRN Agitation Midodrine 10 mg 05/17/21 16:00 05/17/21 16:39 Midodrine 5 Mg Tab PO Not Given TID@0800,1200,1600 [facility] Multi-Ingred Cream/Lotion/Oil/Oint 1 applic 04/15/21 17:24 05/16/21 10:04 Mineral Oil/Petrolatum, White Ophth Oint 3.5 Gm OU 1 applic Q4HR PRN Administration Dry Eye(s) Pravastatin Sodium 20 mg 04/19/21 22:00 05/16/21 21:57 Pravastatin 20 Mg Tab PO 20 mg QHS [facility] Administration Scopolamine 1 each 04/20/21 18:00 05/17/21 09:33 Scopolamine Transdermal Patch 72 Hr TD 1 each Q3D WOLFGANG Administration Simple Syrup 15 ml 04/16/21 12:52 Simple Syrup 15 Ml FEEDTUBE PRN PRN Hypoglycemia Simple Syrup 30 ml 04/16/21 12:52 Simple Syrup 15 Ml FEEDTUBE PRN PRN Hypoglycemia Sodium Bicarbonate 325 mg 04/16/21 12:52 Sodium Bicarbonate 325 Mg Tab FEEDTUBE PRN PRN For Clogged Feeding Tube Sodium Chloride 10 ml 04/15/21 22:00 05/17/21 09:32 Sodium Chloride 0.9% 10 Ml Flush Syringe IV 10 ml BID WOLFGANG Administration Sodium Chloride 10 ml 04/15/21 19:11 04/24/21 05:27 Sodium Chloride 0.9% 10 Ml Flush Syringe IV 10 ml PRN PRN Administration LINE FLUSH Tamsulosin HCl 0.4 mg 04/25/21 14:00 05/17/21 09:33 Tamsulosin 0.4 Mg Cap PO 0.4 mg QDAY [facility] Administration Timolol Maleate 1 drops 04/19/21 10:00 05/17/21 09:32 Timolol 0.5% Ophth Soln 5 Ml OU 1 drops QDAY WOLFGANG Administration Nutrition/Malnutrition Assess - Dietary Evaluation Nutrition/Malnutrition Findings: Nutrition Notes Start: 04/16/21 12:31 Freq: Status: Active Protocol: Document 05/16/21 09:23 (Rec: 05/16/21 09:27 [id number]) Nutrition Notes Initial or Follow up Reassessment Current Diagnosis Acute Kidney Injury,Coronary Artery Disease,Diabetes, Hypertension Other Pertinent Diagnosis UTI, acute metabolic encephalopathy Current Diet TF - Glucerna 1.2 at 50ml/hr Labs/Tests K 5.4 BUN 39 Cr 2 Pertinent Medications Kionex Height 5 ft 6 in Weight 93 kg [place] Body Weight (kg) 59.09 BMI 33.0 Weight Status Obese Subjective/Other Information FU for TF tolerance. BUN and Cr improved, however, pt continues to have hyperkalemia . Will change to low K formula . Unable to obtain new wt. Percent of energy/protein needs met: 100% energy 95% pro Burn Absent Trauma Absent Difficulty In Swallowing Current % PO Negligible Minimum of two criteria No physical signs of malnutrition #1 Nutrition Diagnosis Inadequate oral intake Diagnosis Progress(for reassessment Continues documentation) Is patient on ventilator? No Is Patient Ambulatory and/or Out of Bed No REE-([place]-confined to bed) 1694.856 Kcal/Kg value to use for calculation 15 Approximate Energy Requirements Using 1395 kcal/Kg Calculation Used for Recommendations Kcal/kg Additional Notes Pro needs 1-1.2g/kg AdjBW: 76kg (76-91g) Fluid needs 1ml/kcal Nutrition Intervention Change Diet Order: Change TF Nutrition Support: Nepro 1.8 at 35 ml/hr Flush 150 ml q4h Kcal 1,512 Protein (gm) 68 Fluid (mL) 611 Goal #1 Start and tolerate new TF Goal #2 TF to need needs as best as possible Anticipated Discharge Needs: unable to determine at this time Follow-Up By: 05/18/21 Additional Comments FU for new TF
[2021-05-16] MEDS: PRAVASTATIN 20 MG TAB PO SCH (21:57)
[2021-05-17] MEDS: INSULIN LISPRO 100 UNIT/ML SUB-Q SCH ×4 (00:04→19:40)
[2021-05-17] MEDS: hydrALAZINE 20 MG/1 ML INJ IV PRN (03:32)
[2021-05-17] MEDS: LEVOTHYROXINE 25 MCG TAB PO SCH (05:40)
[2021-05-17 08:01] LABS: Hematocrit 26.8 % (30.3-42.9); Hemoglobin 8.6 gm/dl (10.1-14.3); Mean Corpuscular HGB Conc 32 % (30-34); Mean Corpuscular Volume 95 fl (79-97); Platelet Count 290 K/mm3 (140-440); Red Blood Count 2.83 M/mm3 (3.65-5.03); Red Cell Distribution Width 16.2 % (13.2-15.2)
[2021-05-17] MEDS: INSULIN NPH/REGULAR 70/30 INJ SUB-Q SCH ×2 (08:26→17:10)
[2021-05-17] MEDS: hydrALAZINE 100 MG TAB PO SCH (08:26)
[2021-05-17 09:08] LABS: Calcium 9.8 mg/dL (8.4-10.2)
[2021-05-17] MEDS: BRIMONIDINE 0.15% OPHTH SOLN OU SCH ×2 (09:31→21:31)
[2021-05-17] MEDS: TIMOLOL 0.5% OPHTH SOLN 5 ML OU SCH (09:32)
[2021-05-17] MEDS: DOCUSATE SODIUM 100 MG/10 ML ORAL LIQD PO SCH ×2 (09:33→21:31)
[2021-05-17] MEDS: SCOPOLAMINE TRANSDERMAL PATCH 72 HR TD SCH (09:33)
[2021-05-17] MEDS: ASPIRIN 81 MG TAB CHEW PO SCH (09:33)
[2021-05-17] MEDS: TAMSULOSIN 0.4 MG CAP PO SCH (09:33)
[2021-05-17] MEDS: HEPARIN 5,000 UNIT/1 ML VIAL SUB-Q SCH ×2 (09:34→21:32)
[2021-05-17] MEDS: FAMOTIDINE 20 MG TAB PO SCH (09:34)
[2021-05-17] MEDS: amLODIPine 10 MG TAB PO SCH (10:00)
--- NOTE | 2021-05-17 10:09 | Progress Note ---
Assessment and Plan 1. Acute kidney injury: Vasomotor ROJELIO. ATN likely. Renal US negative for hydro. Baseline renal function is unknown. Monitor renal function. Non-oliguric. Creatinine leveled off. Avoid nephrotoxic agents. Meds dosage based on GFR. 2. FEN: Hypokalemia, improved, monitor. Hypernatremia, improved, monitor. Monitor lytes and volume status. 3. Acute hypoxemic respiratory failure: Extubated, re-intubated 04/24. Trached 05/07. On T-piece. 4. Acute encephalopathy: MRI brain negative. Seen by Neuro. 5. UTI: Treated. 6. Hypertension. 7. DM type 2. 8. Mild rhabdomyolysis: Improved. 9. Mildly complex R renal cyst: Further testing once patient is more stable. Subjective: Patient was seen and examined at the bedside. Examination: General appearance: well-developed, appears stated age, trached on T-piece HEENT: atraumatic Neck: trached Respiratory: Coarse breath sounds heard Heart: S1S2, no murmur Abdomen: soft, obese, bowel sounds heard, NT, PEG tube noted Integumentary: no obvious rash Neurologic: stuporous Ext: no edema noted Subjective Date of service: 05/17/21 Principal diagnosis: Ac. resp failure; AMS; Hypoglycemia; ROJELIO; Hyperkalemia; DM II Objective - Vital Signs Vital signs: Vital Signs - 12hr 05/16/21 05/16/21 05/17/21 23:00 23:24 00:00 Temperature 99.4 F Pulse Rate 74 83 Pulse Rate [ From Monitor] Respiratory 18 27 H Rate Blood Pressure 131/55 154/66 O2 Sat by Pulse 99 99 Oximetry O2 Sat by Pulse Oximetry [ Assessment] 05/17/21 05/17/21 05/17/21 00:58 01:00 02:00 Temperature Pulse Rate 82 77 Pulse Rate [ From Monitor] Respiratory 24 18 Rate Blood Pressure 160/63 173/86 O2 Sat by Pulse 98 97 Oximetry O2 Sat by Pulse 97 Oximetry [ Assessment] 05/17/21 05/17/21 05/17/21 03:00 03:32 04:00 Temperature 98.6 F Pulse Rate 83 86 92 H Pulse Rate [ From Monitor] Respiratory 21 35 H Rate Blood Pressure 176/81 176/81 176/81 O2 Sat by Pulse 98 98 Oximetry O2 Sat by Pulse Oximetry [ Assessment] 05/17/21 05/17/21 05/17/21 04:30 05:00 05:14 Temperature Pulse Rate 106 H 91 H Pulse Rate [ From Monitor] Respiratory 32 H 22 Rate Blood Pressure 112/68 O2 Sat by Pulse 98 90 92 Oximetry O2 Sat by Pulse Oximetry [ Assessment] 05/17/21 05/17/21 05/17/21 05:30 06:00 06:30 Temperature Pulse Rate 88 86 82 Pulse Rate [ From Monitor] Respiratory 20 21 Rate Blood Pressure 110/52 115/49 121/41 O2 Sat by Pulse 97 98 98 Oximetry O2 Sat by Pulse Oximetry [ Assessment] 05/17/21 05/17/21 05/17/21 07:00 07:30 08:00 Temperature 99.3 F Pulse Rate 82 84 85 Pulse Rate [ 85 From Monitor] Respiratory 20 23 22 Rate Blood Pressure 123/50 125/48 113/48 O2 Sat by Pulse 98 98 97 Oximetry O2 Sat by Pulse Oximetry [ Assessment] 05/17/21 05/17/21 05/17/21 08:30 09:10 09:11 Temperature Pulse Rate 85 Pulse Rate [ From Monitor] Respiratory 22 Rate Blood Pressure 125/48 O2 Sat by Pulse 98 96 Oximetry O2 Sat by Pulse 97 Oximetry [ Assessment] - Lab 05/17/21 07:43 05/17/21 07:43 Most recent lab results ABG pH 7.473 (7.320-7.450) H 05/15/21 22:00 ABG O2 Saturation 96.1 (0-100) 05/15/21 22:00 Calcium 9.8 mg/dL (8.4-10.2) 05/17/21 07:43 Phosphorus 2.60 mg/dL (2.5-4.5) 04/22/21 08:00 Magnesium 2.10 mg/dL (1.7-2.3) 04/23/21 07:02 Urine Creatinine 24.4 mg/dL (0.1-20.0) H 04/16/21 00:12 Urine Sodium 97 mmol/L 04/16/21 00:12 Medications & Allergies - Medications Allergies/Adverse Reactions: Allergies No Known Allergies Allergy (Unverified 04/15/21 17:41) Home Medications: Home Medications Medication Instructions Recorded Confirmed Last Taken Type Betaxolol HCl [Betoptic S 0.25% 1 drop OU BID 04/16/21 04/16/21 Unknown History SUSP] Bimatoprost [Lumigan 0.01%] 1 drop OU QPM 04/16/21 04/16/21 Unknown History Brimonidine Tartrate [Brimonidine 5 ml OU BID 04/16/21 04/16/21 Unknown History Tartrate 0.2%] Furosemide [Lasix TAB] 40 mg PO QDAY 04/16/21 04/16/21 Unknown History Gabapentin [Neurontin] 300 mg PO Q8HR 04/16/21 04/16/21 Unknown History HYDROcodone/APAP 10-325 [[place] 1 each PO Q6HR PRN 04/16/21 04/16/21 Unknown History 10/325] Hydralazine HCl 50 mg PO Q4HR 04/16/21 04/16/21 Unknown History Insulin Aspart Prot/Insuln Asp 52 units SQ HS 04/16/21 04/16/21 Unknown History [Novolog Mix 70-30 Flexpen] Metoprolol [Lopressor] 25 mg PO BID 04/16/21 04/16/21 Unknown History Pravastatin [Pravachol] 20 mg PO QHS 04/16/21 04/16/21 Unknown History Promethazine [Phenergan] 25 mg PO Q6HR 04/16/21 04/16/21 Unknown History allopurinoL [Zyloprim] 150 mg PO QDAY 04/16/21 04/16/21 Unknown History Active Medications: Generic Name Dose Route Start Last Admin Trade Name Freq PRN Reason Stop Dose Admin Acetaminophen 650 mg 04/15/21 19:11 04/30/21 20:14 Acetaminophen 325 Mg Tab PO 650 mg Q6H PRN Administration Pain MILD(1-3)/Fever >100.5/SEXTON Albuterol 2.5 mg 05/09/21 13:16 05/16/21 09:40 Albuterol 2.5 Mg/3 Ml Nebu IH 2.5 mg Q6HRT PRN Administration Shortness Of Breath Amlodipine Besylate 10 mg 04/25/21 10:00 05/16/21 10:02 Amlodipine 10 Mg Tab PO 10 mg DAILY WOLFGANG Administration Lipase/Protease/Amylase 1 each 04/16/21 12:52 Lipase 10,500/Protease 25,000/Amylase 43,750 (Units) Dr Cap FEEDTUBE PRN PRN For Clogged Feeding Tube Aspirin 81 mg 04/25/21 10:00 05/17/21 09:33 Aspirin 81 Mg Tab Chew PO 81 mg QDAY WOLFGANG Administration Bisacodyl 10 mg 04/17/21 11:01 05/03/21 09:50 Bisacodyl 10 Mg Rect Supp ID 10 mg QDAY PRN Administration Constipation Brimonidine Tartrate 1 drops 04/17/21 22:00 05/17/21 09:31 Brimonidine 0.15% Ophth Soln OU 1 drops BID WOLFGANG Administration Docusate Sodium 100 mg 04/29/21 15:00 05/17/21 09:33 Docusate Sodium 100 Mg/10 Ml Oral Liqd PO 100 mg BID WOLFGANG Administration Famotidine 20 mg 04/17/21 10:00 05/17/21 09:34 Famotidine 20 Mg Tab PO 20 mg DAILY WOLFGANG Administration Fentanyl 50 mcg 05/13/21 09:30 Fentanyl 100 Mcg/2 Ml Inj IV Q10MIN PRN ANALGESIA Heparin Sodium (Porcine) 5,000 unit 04/15/21 22:00 05/17/21 09:34 Heparin 5,000 Unit/1 Ml Vial SUB-Q 5,000 unit Q12HR WOLFGANG Administration Hydralazine HCl 10 mg 04/16/21 18:00 05/17/21 03:32 Hydralazine 20 Mg/1 Ml Inj IV 10 mg Q4HR PRN Administration Hypertension Hydralazine HCl 100 mg 05/15/21 14:00 05/17/21 08:26 Hydralazine 100 Mg Tab PO Not Given TID [facility] Hydrophilic Ointment 1 applic 04/15/21 17:24 Lip Therapy Vaseline TP Q2HR PRN Dry Lips Fentanyl Citrate 2,000 mcg in 100 mls @ 4.65 mls/hr 05/13/21 10:00 Fentanyl Drip Premix IV TITR [facility] Protocol 1 MCG/KG/HR Insulin Human Isoph/Insulin Regular 25 unit 05/09/21 08:00 05/17/21 08:26 Insulin Nph/Regular 70/30 Inj SUB-Q 25 unit BIDDIAB WOLFGANG Administration Insulin Human Lispro 0 unit 04/16/21 15:00 05/17/21 05:40 Insulin Lispro 100 Unit/Ml SUB-Q 3 unit Q6HR WOLFGANG Administration Protocol Latanoprost 1 drops 04/17/21 18:00 05/16/21 17:46 Latanoprost 0.005% Ophth Soln 2.5 Ml OU 1 drops QPM WOLFGANG Administration Levothyroxine Sodium 25 mcg 04/19/21 06:00 05/17/21 05:40 Levothyroxine 25 Mcg Tab PO 25 mcg DAILY@0600 WOLFGANG Administration Lorazepam 2 mg 05/13/21 09:30 Lorazepam 2 Mg/Ml Vial IV Q4H PRN Agitation Metoprolol Tartrate 25 mg 04/19/21 10:00 05/16/21 21:57 Metoprolol Tartrate 25 Mg Tab PO 25 mg BID WOLFGANG Administration Multi-Ingred Cream/Lotion/Oil/Oint 1 applic 04/15/21 17:24 05/16/21 10:04 Mineral Oil/Petrolatum, White Ophth Oint 3.5 Gm OU 1 applic Q4HR PRN Administration Dry Eye(s) Pravastatin Sodium 20 mg 04/19/21 22:00 05/16/21 21:57 Pravastatin 20 Mg Tab PO 20 mg QHS WOLFGANG Administration Scopolamine 1 each 04/20/21 18:00 05/17/21 09:33 Scopolamine Transdermal Patch 72 Hr TD 1 each Q3D WOLFGANG Administration Simple Syrup 15 ml 04/16/21 12:52 Simple Syrup 15 Ml FEEDTUBE PRN PRN Hypoglycemia Simple Syrup 30 ml 04/16/21 12:52 Simple Syrup 15 Ml FEEDTUBE PRN PRN Hypoglycemia Sodium Bicarbonate 325 mg 04/16/21 12:52 Sodium Bicarbonate 325 Mg Tab FEEDTUBE PRN PRN For Clogged Feeding Tube Sodium Chloride 10 ml 04/15/21 22:00 05/17/21 09:32 Sodium Chloride 0.9% 10 Ml Flush Syringe IV 10 ml BID WOLFGANG Administration Sodium Chloride 10 ml 04/15/21 19:11 04/24/21 05:27 Sodium Chloride 0.9% 10 Ml Flush Syringe IV 10 ml PRN PRN Administration LINE FLUSH Tamsulosin HCl 0.4 mg 04/25/21 14:00 05/17/21 09:33 Tamsulosin 0.4 Mg Cap PO 0.4 mg QDAY WOLFGANG Administration Timolol Maleate 1 drops 04/19/21 10:00 05/17/21 09:32 Timolol 0.5% Ophth Soln 5 Ml OU 1 drops QDAY WOLFGANG Administration
[2021-05-17] MEDS ORDERED: SODIUM CHLORIDE 0.9% 1000 ML 1,000 ML IV ONE (11:59)
[2021-05-17] MEDS: ACETAMINOPHEN 325 MG TAB PO PRN (12:33)
--- NOTE | 2021-05-17 13:51 | Progress Note ---
Assessment and Plan Acute respiratory failure, on mechanical ventilatory support. Acute toxic metabolic encephalopathy Hypoglycemia ROJELIO Hyperkalemia Rhabdomyolysis Possible seizure activity DM II HTN CAD Obesity H/O breast cancer H/O TIA Leukocytosis Elevated serum TSH, possible hypothyroidism - bolus another 250 mls IVNS then run at 75/hr X 2 liters - get urine lytes and calculate FENA - begin Midodrine 10 mg p.o. tid - add Robinul to scopolamine re: secretions - continue bladder scans q4h with straight cath for > 400mls - re-evaluate for hui catheter in 24-48 hours - LTAC evaluation ongoing - if BP stabilizes with intervention will plan to transfer to telemetry today - continue care as below otherwise; - continue to wean supplemental oxygen for target O2 sat's > 90% acutely - continue lung protective strategies - continue bronchodilators with pulmonary hygiene per RT - wean per pulmonary driven protocols otherwise - continue accuchecks with glycemic control per SSI (While critically ill target blood glucose of 140-180 mg/dL; avoid hypoglycemia) - avoid nephrotoxins, renally dose all medications - continue to avoid benzodiazepine's, reduce the possibility of delirium - completed AB's per ID rec's re: Cefepime and Flagyl - follow clinically trend fevers / WBC - prn analgesia per CPOT score - Maintenance of sleep-wake cycle, avoid delirium - continue enteral nutritional support at goal rate as tolerated - G.I. & VTE prophylaxis - PT/OT/ROM exercises - continue Flomax re: retention - continue mobility protocols for pressure ulcer prophylaxis - Monitor hemodynamics closely - continue other care per attending / other consultants - discharge planning ongoing concurrently .... Re-evaluate in am & prn CONDITION: CRITICAL PROGNOSIS: GUARDED CODE STATUS: FULL CODE The high probability of a clinically significant, sudden or life-threatening deterioration of the [respiratory, cardiovascular, GI & neurologic] system(s) required my full and direct attention, intervention and personal management. The aggregate critical care time was [34] minutes without overlap. Time includes spent on; [x] Data Review and interpretation [x] Patient assessment and monitoring of vital signs [x] Documentation [x] Medication orders and management Subjective Date of service: 05/17/21 Principal diagnosis: Ac. resp failure; AMS; Hypoglycemia; ROJELIO; Hyperkalemia; DM II Interval history: Patient is seen today for: Acute respiratory failure; AMS; Hypoglycemia; ROJELIO; Hyperkalemia; DM II; H/O breast cancer; Elevated serum TSH, possible hypothyroidism Seen and examined at bedside; 24hour events reviewed; nursing and respiratory care staff consulted; no adverse overnight events reported to me; resting peacefully in bed; now completed 48 hours of t-piece and tolerating well; she tapia s had an episode of hypotension today and responded to a 250 mls bolus; azotemia a little worse; secretions intermittently l;arge per RT Objective Vital Signs - 12hr 05/17/21 05/17/21 05/17/21 02:00 03:00 03:32 Temperature Pulse Rate 77 83 86 Pulse Rate [ From Monitor] Respiratory 18 21 Rate Blood Pressure 173/86 176/81 176/81 O2 Sat by Pulse 97 98 Oximetry O2 Sat by Pulse Oximetry [ Assessment] 05/17/21 05/17/21 05/17/21 04:00 04:30 05:00 Temperature 98.6 F Pulse Rate 92 H 106 H 91 H Pulse Rate [ From Monitor] Respiratory 35 H 32 H 22 Rate Blood Pressure 176/81 112/68 O2 Sat by Pulse 98 98 90 Oximetry O2 Sat by Pulse Oximetry [ Assessment] 05/17/21 05/17/21 05/17/21 05:14 05:30 06:00 Temperature Pulse Rate 88 86 Pulse Rate [ From Monitor] Respiratory 20 22 Rate Blood Pressure 110/52 115/49 O2 Sat by Pulse 92 97 98 Oximetry O2 Sat by Pulse Oximetry [ Assessment] 05/17/21 05/17/21 05/17/21 06:30 07:00 07:30 Temperature 99.3 F Pulse Rate 82 82 84 Pulse Rate [ From Monitor] Respiratory 21 20 23 Rate Blood Pressure 121/41 123/50 125/48 O2 Sat by Pulse 98 98 98 Oximetry O2 Sat by Pulse Oximetry [ Assessment] 05/17/21 05/17/21 05/17/21 08:00 08:30 09:00 Temperature Pulse Rate 85 85 86 Pulse Rate [ 85 From Monitor] Respiratory 22 22 22 Rate Blood Pressure 113/48 125/48 108/39 O2 Sat by Pulse 97 98 98 Oximetry O2 Sat by Pulse Oximetry [ Assessment] 05/17/21 05/17/21 05/17/21 09:10 09:11 09:30 Temperature Pulse Rate 86 Pulse Rate [ From Monitor] Respiratory 21 Rate Blood Pressure 120/41 O2 Sat by Pulse 96 97 Oximetry O2 Sat by Pulse 97 Oximetry [ Assessment] 05/17/21 05/17/21 05/17/21 10:00 10:30 11:00 Temperature Pulse Rate 83 81 80 Pulse Rate [ From Monitor] Respiratory 20 20 24 Rate Blood Pressure 110/46 102/40 111/40 O2 Sat by Pulse 99 99 100 Oximetry O2 Sat by Pulse Oximetry [ Assessment] 05/17/21 05/17/21 05/17/21 11:29 11:30 12:00 Temperature 99.7 F H Pulse Rate 78 78 Pulse Rate [ 80 From Monitor] Respiratory 15 15 Rate Blood Pressure 109/38 100/40 O2 Sat by Pulse 99 99 Oximetry O2 Sat by Pulse Oximetry [ Assessment] 05/17/21 12:30 Temperature Pulse Rate 79 Pulse Rate [ From Monitor] Respiratory 22 Rate Blood Pressure 103/49 O2 Sat by Pulse 99 Oximetry O2 Sat by Pulse Oximetry [ Assessment] Constitutional: no acute distress, other (elderly obese female with mildly increased respiratory effort at rest on t-piece) Eyes: non-icteric ENT: oropharynx moist, oropharyngeal exudate pre, other (+ midline tracheostomy without bleeding stoma) Neck: supple, no lymphadenopathy, no JVD, other (large circumference) Effort: normal Ascultation: Bilateral: clear, diminished breath sounds Percussion: Bilateral: not dull Cardiovascular: regular rate and rhythm, other (S1,S2) Gastrointestinal: normoactive bowel sounds, hypoactive bowel sounds, non-tender, non-distended (protuberant) Integumentary: normal Extremities: no cyanosis, no edema, pulses normal, no ischemia or petechiae Neurologic: non-focal exam (tracks voice), pupils equal and round, CN II-XII normal, motor strength normal and Psychiatric: other (falt affect) CBC and BMP: 05/17/21 07:43 05/17/21 07:43 ABG, PT/INR, D-dimer: ABG ABG pH 7.473 (7.320-7.450) H 05/15/21 22:00 POC ABG pCO2 35.5 mmHg (32.0-48.0) 05/15/21 22:00 POC ABG pO2 77.7 mmHg (83-108) L 05/15/21 22:00 POC ABG HCO3 25.4 05/15/21 22:00 ABG O2 Saturation 96.1 (0-100) 05/15/21 22:00 PT/INR, D-dimer PT 14.8 Sec. (12.2-14.9) 05/07/21 08:20 INR 1.11 (0.87-1.13) 05/07/21 08:20 Abnormal lab findings: Abnormal Labs 04/15/21 04/15/21 04/15/21 17:00 17:20 17:20 WBC 11.2 H RBC Hgb Hct 43.0 H MCV MCH RDW 15.3 H Plt Count Lymph % (Auto) 12.8 L [place] % (Auto) [place] # (Auto) Seg Neutrophils % 82.4 H Seg Neuts % (Manual) Lymphocytes % (Manual) Monocytes % (Manual) Seg Neutrophils # 9.3 H Seg Neutrophils # Man Lymphocytes # (Manual) Monocytes # (Manual) ABG pH POC ABG pCO2 POC ABG pO2 ABG Hemoglobin ABG Oxyhemoglobin ABG Sodium ABG Potassium ABG Chloride ABG Glucose Carboxyhemoglobin Sodium 129 L Potassium 7.1 H* Chloride 91.9 L BUN 35 H Creatinine 2.8 H Glucose POC Glucose 191 H Calcium Phosphorus Magnesium AST 69 H ALT Total Creatine Kinase CK-MB (CK-2) Troponin T Total Protein Albumin HDL Cholesterol TSH Free T3 Index Arterial Blood Glucose Arterial Blood Ionized Calcium Urine pH Urine WBC (Auto) Urine Creatinine Acetaminophen Crossmatch 04/15/21 04/15/21 04/15/21 17:20 17:20 17:20 WBC RBC Hgb Hct MCV MCH RDW Plt Count Lymph % (Auto) [place] % (Auto) [place] # (Auto) Seg Neutrophils % Seg Neuts % (Manual) Lymphocytes % (Manual) Monocytes % (Manual) Seg Neutrophils # Seg Neutrophils # Man Lymphocytes # (Manual) Monocytes # (Manual) ABG pH POC ABG pCO2 POC ABG pO2 ABG Hemoglobin ABG Oxyhemoglobin ABG Sodium ABG Potassium ABG Chloride ABG Glucose Carboxyhemoglobin Sodium Potassium Chloride BUN Creatinine Glucose POC Glucose Calcium Phosphorus Magnesium AST ALT Total Creatine Kinase 1000 H CK-MB (CK-2) Troponin T Total Protein Albumin HDL Cholesterol TSH 14.190 H Free T3 Index Arterial Blood Glucose Arterial Blood Ionized Calcium Urine pH Urine WBC (Auto) Urine Creatinine Acetaminophen 5.0 L Crossmatch 04/15/21 04/15/21 04/15/21 20:49 21:23 23:15 WBC RBC Hgb Hct MCV MCH RDW Plt Count Lymph % (Auto) [place] % (Auto) [place] # (Auto) Seg Neutrophils % Seg Neuts % (Manual) Lymphocytes % (Manual) Monocytes % (Manual) Seg Neutrophils # Seg Neutrophils # Man Lymphocytes # (Manual) Monocytes # (Manual) ABG pH 7.557 H POC ABG pCO2 30.0 L POC ABG pO2 493.3 H ABG Hemoglobin ABG Oxyhemoglobin 99.0 H ABG Sodium 131.5 L ABG Potassium 4.7 H ABG Chloride 94.0 L ABG Glucose 218 H Carboxyhemoglobin Sodium Potassium Chloride BUN Creatinine Glucose POC Glucose 173 H 207 H Calcium Phosphorus Magnesium AST ALT Total Creatine Kinase CK-MB (CK-2) Troponin T Total Protein Albumin HDL Cholesterol TSH Free T3 Index Arterial Blood Glucose 218 H Arterial Blood Ionized Calcium 5.4 H Urine pH Urine WBC (Auto) Urine Creatinine Acetaminophen Crossmatch 04/16/21 04/16/21 04/16/21 00:09 00:12 00:19 WBC RBC Hgb Hct MCV MCH RDW Plt Count Lymph % (Auto) [place] % (Auto) [place] # (Auto) Seg Neutrophils % Seg Neuts % (Manual) Lymphocytes % (Manual) Monocytes % (Manual) Seg Neutrophils # Seg Neutrophils # Man Lymphocytes # (Manual) Monocytes # (Manual) ABG pH POC ABG pCO2 POC ABG pO2 ABG Hemoglobin ABG Oxyhemoglobin ABG Sodium ABG Potassium ABG Chloride ABG Glucose Carboxyhemoglobin Sodium Potassium 6.7 H* Chloride BUN Creatinine Glucose POC Glucose Calcium Phosphorus Magnesium AST ALT Total Creatine Kinase CK-MB (CK-2) Troponin T Total Protein Albumin HDL Cholesterol TSH Free T3 Index Arterial Blood Glucose Arterial Blood Ionized Calcium Urine pH 9.0 H Urine WBC (Auto) Urine Creatinine 24.4 H Acetaminophen Crossmatch 04/16/21 04/16/21 04/16/21 03:43 03:55 05:02 WBC 21.2 H RBC Hgb Hct 43.4 H MCV 98 H MCH RDW Plt Count Lymph % (Auto) [place] % (Auto) [place] # (Auto) Seg Neutrophils % Seg Neuts % (Manual) 84.0 H Lymphocytes % (Manual) 2.0 L Monocytes % (Manual) 10.0 H Seg Neutrophils # Seg Neutrophils # Man 17.8 H Lymphocytes # (Manual) 0.4 L Monocytes # (Manual) 2.1 H ABG pH 7.461 H POC ABG pCO2 POC ABG pO2 ABG Hemoglobin ABG Oxyhemoglobin ABG Sodium 126.8 L ABG Potassium 5.4 H ABG Chloride 90.0 L ABG Glucose 325 H Carboxyhemoglobin Sodium Potassium Chloride BUN Creatinine Glucose POC Glucose 391 H Calcium Phosphorus Magnesium AST ALT Total Creatine Kinase CK-MB (CK-2) Troponin T Total Protein Albumin HDL Cholesterol TSH Free T3 Index Arterial Blood Glucose 325 H Arterial Blood Ionized Calcium Urine pH Urine WBC (Auto) Urine Creatinine Acetaminophen Crossmatch 04/16/21 04/16/21 04/16/21 05:02 11:34 16:09 WBC RBC Hgb Hct MCV MCH RDW Plt Count Lymph % (Auto) [place] % (Auto) [place] # (Auto) Seg Neutrophils % Seg Neuts % (Manual) Lymphocytes % (Manual) Monocytes % (Manual) Seg Neutrophils # Seg Neutrophils # Man Lymphocytes # (Manual) Monocytes # (Manual) ABG pH POC ABG pCO2 POC ABG pO2 ABG Hemoglobin ABG Oxyhemoglobin ABG Sodium ABG Potassium ABG Chloride ABG Glucose Carboxyhemoglobin Sodium 131 L Potassium 5.9 H Chloride 88.7 L BUN 34 H Creatinine 2.9 H Glucose 249 H POC Glucose 382 H 300 H Calcium 10.4 H Phosphorus Magnesium AST 65 H ALT Total Creatine Kinase CK-MB (CK-2) Troponin T Total Protein Albumin 3.8 L HDL Cholesterol TSH Free T3 Index Arterial Blood Glucose Arterial Blood Ionized Calcium Urine pH Urine WBC (Auto) Urine Creatinine Acetaminophen Crossmatch 04/16/21 04/16/21 04/16/21 18:15 19:01 19:01 WBC RBC Hgb Hct MCV MCH RDW Plt Count Lymph % (Auto) [place] % (Auto) [place] # (Auto) Seg Neutrophils % Seg Neuts % (Manual) Lymphocytes % (Manual) Monocytes % (Manual) Seg Neutrophils # Seg Neutrophils # Man Lymphocytes # (Manual) Monocytes # (Manual) ABG pH POC ABG pCO2 POC ABG pO2 ABG Hemoglobin ABG Oxyhemoglobin ABG Sodium ABG Potassium ABG Chloride ABG Glucose Carboxyhemoglobin Sodium 125 L Potassium 5.5 H Chloride 84.5 L BUN 37 H Creatinine 3.5 H Glucose 236 H POC Glucose 287 H Calcium Phosphorus Magnesium AST ALT Total Creatine Kinase CK-MB (CK-2) Troponin T Total Protein Albumin HDL Cholesterol TSH Free T3 Index 1.1 L Arterial Blood Glucose Arterial Blood Ionized Calcium Urine pH Urine WBC (Auto) Urine Creatinine Acetaminophen Crossmatch 04/16/21 04/16/21 04/17/21 19:01 23:48 03:09 WBC RBC Hgb Hct MCV MCH RDW Plt Count Lymph % (Auto) [place] % (Auto) [place] # (Auto) Seg Neutrophils % Seg Neuts % (Manual) Lymphocytes % (Manual) Monocytes % (Manual) Seg Neutrophils # Seg Neutrophils # Man Lymphocytes # (Manual) Monocytes # (Manual) ABG pH 7.518 H POC ABG pCO2 POC ABG pO2 ABG Hemoglobin ABG Oxyhemoglobin ABG Sodium 126.4 L ABG Potassium ABG Chloride 89.0 L ABG Glucose 200 H Carboxyhemoglobin Sodium Potassium 5.6 H Chloride BUN Creatinine Glucose POC Glucose 243 H Calcium Phosphorus Magnesium AST ALT Total Creatine Kinase CK-MB (CK-2) Troponin T Total Protein Albumin HDL Cholesterol TSH Free T3 Index Arterial Blood Glucose 200 H Arterial Blood Ionized Calcium 4.4 L Urine pH Urine WBC (Auto) Urine Creatinine Acetaminophen Crossmatch 04/17/21 04/17/21 04/17/21 05:04 06:14 11:55 WBC RBC Hgb Hct MCV MCH RDW Plt Count Lymph % (Auto) [place] % (Auto) [place] # (Auto) Seg Neutrophils % Seg Neuts % (Manual) Lymphocytes % (Manual) Monocytes % (Manual) Seg Neutrophils # Seg Neutrophils # Man Lymphocytes # (Manual) Monocytes # (Manual) ABG pH POC ABG pCO2 POC ABG pO2 ABG Hemoglobin ABG Oxyhemoglobin ABG Sodium ABG Potassium ABG Chloride ABG Glucose Carboxyhemoglobin Sodium 129 L Potassium Chloride 86.1 L BUN 39 H Creatinine 3.5 H Glucose 202 H POC Glucose 208 H 276 H Calcium Phosphorus Magnesium AST ALT Total Creatine Kinase 750 H CK-MB (CK-2) Troponin T 0.119 H* D Total Protein Albumin HDL Cholesterol 61 H TSH Free T3 Index Arterial Blood Glucose Arterial Blood Ionized Calcium Urine pH Urine WBC (Auto) Urine Creatinine Acetaminophen Crossmatch 04/17/21 04/17/21 04/17/21 15:35 15:35 17:07 WBC 17.1 H RBC Hgb Hct MCV MCH RDW Plt Count Lymph % (Auto) [place] % (Auto) [place] # (Auto) Seg Neutrophils % Seg Neuts % (Manual) Lymphocytes % (Manual) Monocytes % (Manual) Seg Neutrophils # Seg Neutrophils # Man Lymphocytes # (Manual) Monocytes # (Manual) ABG pH POC ABG pCO2 POC ABG pO2 ABG Hemoglobin ABG Oxyhemoglobin ABG Sodium ABG Potassium ABG Chloride ABG Glucose Carboxyhemoglobin Sodium Potassium Chloride BUN Creatinine Glucose POC Glucose 148 H Calcium Phosphorus Magnesium AST ALT Total Creatine Kinase 615 H CK-MB (CK-2) 9.1 H Troponin T Total Protein Albumin HDL Cholesterol TSH Free T3 Index Arterial Blood Glucose Arterial Blood Ionized Calcium Urine pH Urine WBC (Auto) Urine Creatinine Acetaminophen Crossmatch 04/18/21 04/18/21 04/18/21 00:01 03:00 05:24 WBC RBC Hgb Hct MCV MCH RDW Plt Count Lymph % (Auto) [place] % (Auto) [place] # (Auto) Seg Neutrophils % Seg Neuts % (Manual) Lymphocytes % (Manual) Monocytes % (Manual) Seg Neutrophils # Seg Neutrophils # Man Lymphocytes # (Manual) Monocytes # (Manual) ABG pH 7.497 H POC ABG pCO2 POC ABG pO2 77.7 L ABG Hemoglobin 10.4 L ABG Oxyhemoglobin ABG Sodium 129.7 L ABG Potassium 2.8 L ABG Chloride 92.0 L ABG Glucose 134 H Carboxyhemoglobin 0.3 L Sodium Potassium Chloride BUN Creatinine Glucose POC Glucose 192 H 162 H Calcium Phosphorus Magnesium AST ALT Total Creatine Kinase CK-MB (CK-2) Troponin T Total Protein Albumin HDL Cholesterol TSH Free T3 Index Arterial Blood Glucose 134 H Arterial Blood Ionized Calcium 4.3 L Urine pH Urine WBC (Auto) Urine Creatinine Acetaminophen Crossmatch 04/18/21 04/18/21 04/18/21 05:34 05:34 05:43 WBC 15.3 H RBC 3.34 L Hgb Hct MCV MCH RDW 15.3 H Plt Count Lymph % (Auto) [place] % (Auto) [place] # (Auto) Seg Neutrophils % Seg Neuts % (Manual) Lymphocytes % (Manual) Monocytes % (Manual) Seg Neutrophils # Seg Neutrophils # Man Lymphocytes # (Manual) Monocytes # (Manual) ABG pH POC ABG pCO2 POC ABG pO2 ABG Hemoglobin ABG Oxyhemoglobin ABG Sodium ABG Potassium ABG Chloride ABG Glucose Carboxyhemoglobin Sodium 134 L Potassium 3.0 L D Chloride 93.5 L BUN 42 H Creatinine 3.1 H Glucose 152 H POC Glucose Calcium Phosphorus Magnesium 1.40 L AST ALT Total Creatine Kinase 427 H CK-MB (CK-2) Troponin T 0.081 H D Total Protein Albumin HDL Cholesterol TSH Free T3 Index Arterial Blood Glucose Arterial Blood Ionized Calcium Urine pH Urine WBC (Auto) Urine Creatinine Acetaminophen Crossmatch 04/18/21 04/18/21 04/18/21 09:11 11:34 17:24 WBC RBC Hgb Hct MCV MCH RDW Plt Count Lymph % (Auto) [place] % (Auto) [place] # (Auto) Seg Neutrophils % Seg Neuts % (Manual) Lymphocytes % (Manual) Monocytes % (Manual) Seg Neutrophils # Seg Neutrophils # Man Lymphocytes # (Manual) Monocytes # (Manual) ABG pH POC ABG pCO2 POC ABG pO2 ABG Hemoglobin ABG Oxyhemoglobin ABG Sodium ABG Potassium ABG Chloride ABG Glucose Carboxyhemoglobin Sodium Potassium Chloride BUN Creatinine Glucose POC Glucose 170 H 151 H Calcium Phosphorus Magnesium AST ALT Total Creatine Kinase CK-MB (CK-2) Troponin T Total Protein Albumin HDL Cholesterol TSH Free T3 Index Arterial Blood Glucose Arterial Blood Ionized Calcium Urine pH Urine WBC (Auto) 34.0 H Urine Creatinine Acetaminophen Crossmatch 04/18/21 04/19/21 04/19/21 23:18 04:09 05:19 WBC RBC Hgb Hct MCV MCH RDW Plt Count Lymph % (Auto) [place] % (Auto) [place] # (Auto) Seg Neutrophils % Seg Neuts % (Manual) Lymphocytes % (Manual) Monocytes % (Manual) Seg Neutrophils # Seg Neutrophils # Man Lymphocytes # (Manual) Monocytes # (Manual) ABG pH 7.476 H POC ABG pCO2 POC ABG pO2 79.4 L ABG Hemoglobin 10.7 L ABG Oxyhemoglobin ABG Sodium 131.2 L ABG Potassium 2.8 L ABG Chloride 94.0 L ABG Glucose 209 H Carboxyhemoglobin 0.3 L Sodium Potassium Chloride BUN Creatinine Glucose POC Glucose 182 H 204 H Calcium Phosphorus Magnesium AST ALT Total Creatine Kinase CK-MB (CK-2) Troponin T Total Protein Albumin HDL Cholesterol TSH Free T3 Index Arterial Blood Glucose 209 H Arterial Blood Ionized Calcium Urine pH Urine WBC (Auto) Urine Creatinine Acetaminophen Crossmatch 04/19/21 04/19/21 04/19/21 07:30 07:30 10:35 WBC 14.8 H RBC 3.20 L Hgb Hct MCV 98 H MCH RDW Plt Count 137 L Lymph % (Auto) [place] % (Auto) [place] # (Auto) Seg Neutrophils % Seg Neuts % (Manual) Lymphocytes % (Manual) Monocytes % (Manual) Seg Neutrophils # Seg Neutrophils # Man Lymphocytes # (Manual) Monocytes # (Manual) ABG pH 7.464 H POC ABG pCO2 POC ABG pO2 81.8 L ABG Hemoglobin 10.8 L ABG Oxyhemoglobin ABG Sodium 129.6 L ABG Potassium ABG Chloride 95.0 L ABG Glucose 238 H Carboxyhemoglobin Sodium 133 L Potassium 2.8 L* Chloride 94.4 L BUN 43 H Creatinine 2.7 H Glucose 255 H POC Glucose Calcium 8.0 L Phosphorus Magnesium AST ALT Total Creatine Kinase CK-MB (CK-2) Troponin T 0.060 H D Total Protein Albumin HDL Cholesterol TSH Free T3 Index Arterial Blood Glucose 238 H Arterial Blood Ionized Calcium Urine pH Urine WBC (Auto) Urine Creatinine Acetaminophen Crossmatch 04/19/21 04/19/21 04/19/21 11:48 20:40 23:04 WBC RBC Hgb Hct MCV MCH RDW Plt Count Lymph % (Auto) [place] % (Auto) [place] # (Auto) Seg Neutrophils % Seg Neuts % (Manual) Lymphocytes % (Manual) Monocytes % (Manual) Seg Neutrophils # Seg Neutrophils # Man Lymphocytes # (Manual) Monocytes # (Manual) ABG pH POC ABG pCO2 POC ABG pO2 ABG Hemoglobin ABG Oxyhemoglobin ABG Sodium ABG Potassium ABG Chloride ABG Glucose Carboxyhemoglobin Sodium Potassium 3.4 L D Chloride BUN Creatinine Glucose POC Glucose 208 H 173 H Calcium Phosphorus Magnesium AST ALT Total Creatine Kinase CK-MB (CK-2) Troponin T Total Protein Albumin HDL Cholesterol TSH Free T3 Index Arterial Blood Glucose Arterial Blood Ionized Calcium Urine pH Urine WBC (Auto) Urine Creatinine Acetaminophen Crossmatch 04/20/21 04/20/21 04/20/21 02:56 03:32 03:32 WBC 13.2 H RBC 3.18 L Hgb Hct MCV MCH RDW Plt Count Lymph % (Auto) [place] % (Auto) [place] # (Auto) Seg Neutrophils % Seg Neuts % (Manual) Lymphocytes % (Manual) Monocytes % (Manual) Seg Neutrophils # Seg Neutrophils # Man Lymphocytes # (Manual) Monocytes # (Manual) ABG pH 7.526 H POC ABG pCO2 POC ABG pO2 ABG Hemoglobin 10.5 L ABG Oxyhemoglobin ABG Sodium 133.5 L ABG Potassium ABG Chloride ABG Glucose 157 H Carboxyhemoglobin 0.3 L Sodium 135 L Potassium Chloride 96.7 L BUN 40 H Creatinine 2.3 H Glucose 142 H POC Glucose Calcium Phosphorus Magnesium AST ALT Total Creatine Kinase CK-MB (CK-2) Troponin T 0.065 H Total Protein Albumin HDL Cholesterol TSH Free T3 Index Arterial Blood Glucose 157 H Arterial Blood Ionized Calcium Urine pH Urine WBC (Auto) Urine Creatinine Acetaminophen Crossmatch 04/20/21 04/20/21 04/20/21 03:46 05:42 11:50 WBC RBC Hgb Hct MCV MCH RDW Plt Count Lymph % (Auto) [place] % (Auto) [place] # (Auto) Seg Neutrophils % Seg Neuts % (Manual) Lymphocytes % (Manual) Monocytes % (Manual) Seg Neutrophils # Seg Neutrophils # Man Lymphocytes # (Manual) Monocytes # (Manual) ABG pH POC ABG pCO2 POC ABG pO2 ABG Hemoglobin ABG Oxyhemoglobin ABG Sodium ABG Potassium ABG Chloride ABG Glucose Carboxyhemoglobin Sodium Potassium Chloride BUN Creatinine Glucose POC Glucose 160 H 194 H Calcium Phosphorus 2.10 L Magnesium AST ALT Total Creatine Kinase CK-MB (CK-2) Troponin T Total Protein Albumin HDL Cholesterol TSH Free T3 Index Arterial Blood Glucose Arterial Blood Ionized Calcium Urine pH Urine WBC (Auto) Urine Creatinine Acetaminophen Crossmatch 04/20/21 04/20/21 04/21/21 17:09 23:18 05:26 WBC RBC Hgb Hct MCV MCH RDW Plt Count Lymph % (Auto) [place] % (Auto) [place] # (Auto) Seg Neutrophils % Seg Neuts % (Manual) Lymphocytes % (Manual) Monocytes % (Manual) Seg Neutrophils # Seg Neutrophils # Man Lymphocytes # (Manual) Monocytes # (Manual) ABG pH POC ABG pCO2 POC ABG pO2 ABG Hemoglobin ABG Oxyhemoglobin ABG Sodium ABG Potassium ABG Chloride ABG Glucose Carboxyhemoglobin Sodium Potassium Chloride BUN Creatinine Glucose POC Glucose 153 H 162 H 164 H Calcium Phosphorus Magnesium AST ALT Total Creatine Kinase CK-MB (CK-2) Troponin T Total Protein Albumin HDL Cholesterol TSH Free T3 Index Arterial Blood Glucose Arterial Blood Ionized Calcium Urine pH Urine WBC (Auto) Urine Creatinine Acetaminophen Crossmatch 04/21/21 04/21/21 04/21/21 05:51 05:51 12:12 WBC RBC 3.20 L Hgb Hct MCV 99 H MCH RDW 15.3 H Plt Count Lymph % (Auto) [place] % (Auto) [place] # (Auto) Seg Neutrophils % Seg Neuts % (Manual) Lymphocytes % (Manual) Monocytes % (Manual) Seg Neutrophils # Seg Neutrophils # Man Lymphocytes # (Manual) Monocytes # (Manual) ABG pH POC ABG pCO2 POC ABG pO2 ABG Hemoglobin ABG Oxyhemoglobin ABG Sodium ABG Potassium ABG Chloride ABG Glucose Carboxyhemoglobin Sodium Potassium Chloride 96.6 L BUN 42 H Creatinine 2.1 H Glucose 171 H POC Glucose 167 H Calcium Phosphorus Magnesium AST ALT Total Creatine Kinase CK-MB (CK-2) Troponin T Total Protein Albumin HDL Cholesterol TSH Free T3 Index Arterial Blood Glucose Arterial Blood Ionized Calcium Urine pH Urine WBC (Auto) Urine Creatinine Acetaminophen Crossmatch 04/21/21 04/21/21 04/22/21 17:13 23:42 05:29 WBC RBC Hgb Hct MCV MCH RDW Plt Count Lymph % (Auto) [place] % (Auto) [place] # (Auto) Seg Neutrophils % Seg Neuts % (Manual) Lymphocytes % (Manual) Monocytes % (Manual) Seg Neutrophils # Seg Neutrophils # Man Lymphocytes # (Manual) Monocytes # (Manual) ABG pH POC ABG pCO2 POC ABG pO2 ABG Hemoglobin ABG Oxyhemoglobin ABG Sodium ABG Potassium ABG Chloride ABG Glucose Carboxyhemoglobin Sodium Potassium Chloride BUN Creatinine Glucose POC Glucose 178 H 253 H 208 H Calcium Phosphorus Magnesium AST ALT Total Creatine Kinase CK-MB (CK-2) Troponin T Total Protein Albumin HDL Cholesterol TSH Free T3 Index Arterial Blood Glucose Arterial Blood Ionized Calcium Urine pH Urine WBC (Auto) Urine Creatinine Acetaminophen Crossmatch 04/22/21 04/22/21 04/22/21 08:00 08:00 12:06 WBC 12.9 H RBC Hgb Hct MCV MCH RDW Plt Count Lymph % (Auto) [place] % (Auto) [place] # (Auto) Seg Neutrophils % Seg Neuts % (Manual) Lymphocytes % (Manual) Monocytes % (Manual) Seg Neutrophils # Seg Neutrophils # Man Lymphocytes # (Manual) Monocytes # (Manual) ABG pH POC ABG pCO2 POC ABG pO2 ABG Hemoglobin ABG Oxyhemoglobin ABG Sodium ABG Potassium ABG Chloride ABG Glucose Carboxyhemoglobin Sodium Potassium Chloride BUN 47 H Creatinine 1.9 H Glucose 252 H POC Glucose 298 H Calcium Phosphorus Magnesium AST ALT Total Creatine Kinase CK-MB (CK-2) Troponin T Total Protein Albumin HDL Cholesterol TSH Free T3 Index Arterial Blood Glucose Arterial Blood Ionized Calcium Urine pH Urine WBC (Auto) Urine Creatinine Acetaminophen Crossmatch 04/22/21 04/22/21 04/23/21 17:34 23:01 05:08 WBC RBC Hgb Hct MCV MCH RDW Plt Count Lymph % (Auto) [place] % (Auto) [place] # (Auto) Seg Neutrophils % Seg Neuts % (Manual) Lymphocytes % (Manual) Monocytes % (Manual) Seg Neutrophils # Seg Neutrophils # Man Lymphocytes # (Manual) Monocytes # (Manual) ABG pH POC ABG pCO2 POC ABG pO2 ABG Hemoglobin ABG Oxyhemoglobin ABG Sodium ABG Potassium ABG Chloride ABG Glucose Carboxyhemoglobin Sodium Potassium Chloride BUN Creatinine Glucose POC Glucose 259 H 280 H 223 H Calcium Phosphorus Magnesium AST ALT Total Creatine Kinase CK-MB (CK-2) Troponin T Total Protein Albumin HDL Cholesterol TSH Free T3 Index Arterial Blood Glucose Arterial Blood Ionized Calcium Urine pH Urine WBC (Auto) Urine Creatinine Acetaminophen Crossmatch 04/23/21 04/23/21 04/23/21 07:02 11:57 17:33 WBC RBC Hgb Hct MCV MCH RDW Plt Count Lymph % (Auto) [place] % (Auto) [place] # (Auto) Seg Neutrophils % Seg Neuts % (Manual) Lymphocytes % (Manual) Monocytes % (Manual) Seg Neutrophils # Seg Neutrophils # Man Lymphocytes # (Manual) Monocytes # (Manual) ABG pH POC ABG pCO2 POC ABG pO2 ABG Hemoglobin ABG Oxyhemoglobin ABG Sodium ABG Potassium ABG Chloride ABG Glucose Carboxyhemoglobin Sodium Potassium Chloride 97.7 L BUN 57 H Creatinine 2.0 H Glucose 253 H POC Glucose 310 H 235 H Calcium Phosphorus Magnesium AST ALT Total Creatine Kinase CK-MB (CK-2) Troponin T Total Protein Albumin HDL Cholesterol TSH Free T3 Index Arterial Blood Glucose Arterial Blood Ionized Calcium Urine pH Urine WBC (Auto) Urine Creatinine Acetaminophen Crossmatch 04/23/21 04/24/21 04/24/21 23:15 05:23 05:46 WBC RBC Hgb Hct MCV MCH RDW Plt Count Lymph % (Auto) [place] % (Auto) [place] # (Auto) Seg Neutrophils % Seg Neuts % (Manual) Lymphocytes % (Manual) Monocytes % (Manual) Seg Neutrophils # Seg Neutrophils # Man Lymphocytes # (Manual) Monocytes # (Manual) ABG pH POC ABG pCO2 POC ABG pO2 ABG Hemoglobin ABG Oxyhemoglobin ABG Sodium ABG Potassium ABG Chloride ABG Glucose Carboxyhemoglobin Sodium Potassium 5.2 H D Chloride BUN 68 H Creatinine 2.3 H Glucose 277 H POC Glucose 197 H 274 H Calcium Phosphorus Magnesium AST ALT Total Creatine Kinase CK-MB (CK-2) Troponin T Total Protein Albumin HDL Cholesterol TSH Free T3 Index Arterial Blood Glucose Arterial Blood Ionized Calcium Urine pH Urine WBC (Auto) Urine Creatinine Acetaminophen Crossmatch 04/24/21 04/24/21 04/24/21 11:33 11:52 17:49 WBC RBC Hgb Hct MCV MCH RDW Plt Count Lymph % (Auto) [place] % (Auto) [place] # (Auto) Seg Neutrophils % Seg Neuts % (Manual) Lymphocytes % (Manual) Monocytes % (Manual) Seg Neutrophils # Seg Neutrophils # Man Lymphocytes # (Manual) Monocytes # (Manual) ABG pH POC ABG pCO2 POC ABG pO2 72.7 L ABG Hemoglobin 11.6 L ABG Oxyhemoglobin 92.9 L ABG Sodium ABG Potassium ABG Chloride ABG Glucose 269 H Carboxyhemoglobin Sodium Potassium Chloride BUN Creatinine Glucose POC Glucose 223 H 252 H Calcium Phosphorus Magnesium AST ALT Total Creatine Kinase CK-MB (CK-2) Troponin T Total Protein Albumin HDL Cholesterol TSH Free T3 Index Arterial Blood Glucose 269 H Arterial Blood Ionized Calcium Urine pH Urine WBC (Auto) Urine Creatinine Acetaminophen Crossmatch 04/24/21 04/24/21 04/25/21 21:00 23:48 03:06 WBC RBC Hgb Hct MCV MCH RDW Plt Count Lymph % (Auto) [place] % (Auto) [place] # (Auto) Seg Neutrophils % Seg Neuts % (Manual) Lymphocytes % (Manual) Monocytes % (Manual) Seg Neutrophils # Seg Neutrophils # Man Lymphocytes # (Manual) Monocytes # (Manual) ABG pH 7.521 H 7.451 H POC ABG pCO2 POC ABG pO2 80.7 L 77.1 L ABG Hemoglobin 10.4 L 11.2 L ABG Oxyhemoglobin ABG Sodium ABG Potassium ABG Chloride ABG Glucose 186 H 165 H Carboxyhemoglobin 0 L Sodium Potassium Chloride BUN Creatinine Glucose POC Glucose 141 H Calcium Phosphorus Magnesium AST ALT Total Creatine Kinase CK-MB (CK-2) Troponin T Total Protein Albumin HDL Cholesterol TSH Free T3 Index Arterial Blood Glucose 186 H 165 H Arterial Blood Ionized Calcium Urine pH Urine WBC (Auto) Urine Creatinine Acetaminophen Crossmatch 04/25/21 04/25/21 04/25/21 03:56 03:56 06:03 WBC 12.3 H RBC 3.40 L Hgb Hct MCV MCH RDW Plt Count Lymph % (Auto) [place] % (Auto) [place] # (Auto) Seg Neutrophils % Seg Neuts % (Manual) Lymphocytes % (Manual) Monocytes % (Manual) Seg Neutrophils # Seg Neutrophils # Man Lymphocytes # (Manual) Monocytes # (Manual) ABG pH POC ABG pCO2 POC ABG pO2 ABG Hemoglobin ABG Oxyhemoglobin ABG Sodium ABG Potassium ABG Chloride ABG Glucose Carboxyhemoglobin Sodium Potassium Chloride BUN 78 H Creatinine 2.5 H Glucose 152 H POC Glucose 171 H Calcium Phosphorus Magnesium AST ALT Total Creatine Kinase CK-MB (CK-2) Troponin T Total Protein Albumin HDL Cholesterol TSH Free T3 Index Arterial Blood Glucose Arterial Blood Ionized Calcium Urine pH Urine WBC (Auto) Urine Creatinine Acetaminophen Crossmatch 04/25/21 04/25/21 04/26/21 11:43 15:37 00:05 WBC RBC Hgb Hct MCV MCH RDW Plt Count Lymph % (Auto) [place] % (Auto) [place] # (Auto) Seg Neutrophils % Seg Neuts % (Manual) Lymphocytes % (Manual) Monocytes % (Manual) Seg Neutrophils # Seg Neutrophils # Man Lymphocytes # (Manual) Monocytes # (Manual) ABG pH POC ABG pCO2 POC ABG pO2 ABG Hemoglobin ABG Oxyhemoglobin ABG Sodium ABG Potassium ABG Chloride ABG Glucose Carboxyhemoglobin Sodium Potassium Chloride BUN Creatinine Glucose POC Glucose 181 H 167 H 144 H Calcium Phosphorus Magnesium AST ALT Total Creatine Kinase CK-MB (CK-2) Troponin T Total Protein Albumin HDL Cholesterol TSH Free T3 Index Arterial Blood Glucose Arterial Blood Ionized Calcium Urine pH Urine WBC (Auto) Urine Creatinine Acetaminophen Crossmatch 04/26/21 04/26/21 04/26/21 04:30 05:44 09:30 WBC RBC Hgb Hct MCV MCH RDW Plt Count Lymph % (Auto) [place] % (Auto) [place] # (Auto) Seg Neutrophils % Seg Neuts % (Manual) Lymphocytes % (Manual) Monocytes % (Manual) Seg Neutrophils # Seg Neutrophils # Man Lymphocytes # (Manual) Monocytes # (Manual) ABG pH 7.529 H POC ABG pCO2 POC ABG pO2 66.1 L ABG Hemoglobin 11.2 L ABG Oxyhemoglobin 92.8 L ABG Sodium ABG Potassium ABG Chloride ABG Glucose 216 H Carboxyhemoglobin 0.3 L Sodium Potassium Chloride BUN 82 H Creatinine 2.7 H Glucose 238 H POC Glucose 202 H Calcium Phosphorus Magnesium AST ALT Total Creatine Kinase CK-MB (CK-2) Troponin T Total Protein Albumin HDL Cholesterol TSH Free T3 Index Arterial Blood Glucose 216 H Arterial Blood Ionized Calcium Urine pH Urine WBC (Auto) Urine Creatinine Acetaminophen Crossmatch 04/26/21 04/26/21 04/26/21 09:30 11:32 17:21 WBC 24.7 H RBC 3.32 L Hgb Hct MCV MCH RDW Plt Count Lymph % (Auto) [place] % (Auto) [place] # (Auto) Seg Neutrophils % Seg Neuts % (Manual) Lymphocytes % (Manual) Monocytes % (Manual) Seg Neutrophils # Seg Neutrophils # Man Lymphocytes # (Manual) Monocytes # (Manual) ABG pH POC ABG pCO2 POC ABG pO2 ABG Hemoglobin ABG Oxyhemoglobin ABG Sodium ABG Potassium ABG Chloride ABG Glucose Carboxyhemoglobin Sodium Potassium Chloride BUN Creatinine Glucose POC Glucose 245 H 264 H Calcium Phosphorus Magnesium AST ALT Total Creatine Kinase CK-MB (CK-2) Troponin T Total Protein Albumin HDL Cholesterol TSH Free T3 Index Arterial Blood Glucose Arterial Blood Ionized Calcium Urine pH Urine WBC (Auto) Urine Creatinine Acetaminophen Crossmatch 04/26/21 04/27/21 04/27/21 23:18 04:23 04:54 WBC RBC Hgb Hct MCV MCH RDW Plt Count Lymph % (Auto) [place] % (Auto) [place] # (Auto) Seg Neutrophils % Seg Neuts % (Manual) Lymphocytes % (Manual) Monocytes % (Manual) Seg Neutrophils # Seg Neutrophils # Man Lymphocytes # (Manual) Monocytes # (Manual) ABG pH 7.549 H POC ABG pCO2 30.0 L POC ABG pO2 64.9 L ABG Hemoglobin 11 L ABG Oxyhemoglobin 93.3 L ABG Sodium ABG Potassium ABG Chloride ABG Glucose 325 H Carboxyhemoglobin 0.3 L Sodium Potassium Chloride BUN Creatinine Glucose POC Glucose 201 H 298 H Calcium Phosphorus Magnesium AST ALT Total Creatine Kinase CK-MB (CK-2) Troponin T Total Protein Albumin HDL Cholesterol TSH Free T3 Index Arterial Blood Glucose 325 H Arterial Blood Ionized Calcium Urine pH Urine WBC (Auto) Urine Creatinine Acetaminophen Crossmatch 04/27/21 04/27/21 04/27/21 07:52 07:52 11:22 WBC 23.0 H RBC 3.32 L Hgb Hct MCV MCH RDW 15.5 H Plt Count Lymph % (Auto) [place] % (Auto) [place] # (Auto) Seg Neutrophils % Seg Neuts % (Manual) Lymphocytes % (Manual) Monocytes % (Manual) Seg Neutrophils # Seg Neutrophils # Man Lymphocytes # (Manual) Monocytes # (Manual) ABG pH POC ABG pCO2 POC ABG pO2 ABG Hemoglobin ABG Oxyhemoglobin ABG Sodium ABG Potassium ABG Chloride ABG Glucose Carboxyhemoglobin Sodium Potassium 3.5 L Chloride BUN 90 H Creatinine 2.8 H Glucose 286 H POC Glucose 251 H Calcium Phosphorus Magnesium AST ALT Total Creatine Kinase CK-MB (CK-2) Troponin T Total Protein Albumin HDL Cholesterol TSH Free T3 Index Arterial Blood Glucose Arterial Blood Ionized Calcium Urine pH Urine WBC (Auto) Urine Creatinine Acetaminophen Crossmatch 04/27/21 04/27/21 04/27/21 17:21 17:45 23:05 WBC RBC Hgb Hct MCV MCH RDW Plt Count Lymph % (Auto) [place] % (Auto) [place] # (Auto) Seg Neutrophils % Seg Neuts % (Manual) Lymphocytes % (Manual) Monocytes % (Manual) Seg Neutrophils # Seg Neutrophils # Man Lymphocytes # (Manual) Monocytes # (Manual) ABG pH POC ABG pCO2 POC ABG pO2 ABG Hemoglobin ABG Oxyhemoglobin ABG Sodium ABG Potassium ABG Chloride ABG Glucose Carboxyhemoglobin Sodium Potassium Chloride BUN Creatinine Glucose POC Glucose 180 H 178 H 189 H Calcium Phosphorus Magnesium AST ALT Total Creatine Kinase CK-MB (CK-2) Troponin T Total Protein Albumin HDL Cholesterol TSH Free T3 Index Arterial Blood Glucose Arterial Blood Ionized Calcium Urine pH Urine WBC (Auto) Urine Creatinine Acetaminophen Crossmatch 04/28/21 04/28/21 04/28/21 03:14 04:13 04:13 WBC 17.6 H RBC 3.03 L Hgb 9.7 L Hct 29.5 L MCV MCH RDW Plt Count Lymph % (Auto) [place] % (Auto) [place] # (Auto) Seg Neutrophils % Seg Neuts % (Manual) Lymphocytes % (Manual) Monocytes % (Manual) Seg Neutrophils # Seg Neutrophils # Man Lymphocytes # (Manual) Monocytes # (Manual) ABG pH 7.507 H POC ABG pCO2 POC ABG pO2 62.0 L ABG Hemoglobin 10.2 L ABG Oxyhemoglobin 91.9 L ABG Sodium ABG Potassium ABG Chloride ABG Glucose 337 H Carboxyhemoglobin 0.2 L Sodium Potassium Chloride BUN 101 H Creatinine 3.1 H Glucose 304 H POC Glucose Calcium Phosphorus Magnesium AST 61 H ALT 64 H Total Creatine Kinase CK-MB (CK-2) Troponin T Total Protein 6.2 L Albumin 2.6 L HDL Cholesterol TSH Free T3 Index Arterial Blood Glucose 337 H Arterial Blood Ionized Calcium Urine pH Urine WBC (Auto) Urine Creatinine Acetaminophen Crossmatch 04/28/21 04/28/21 04/28/21 05:01 11:28 18:23 WBC RBC Hgb Hct MCV MCH RDW Plt Count Lymph % (Auto) [place] % (Auto) [place] # (Auto) Seg Neutrophils % Seg Neuts % (Manual) Lymphocytes % (Manual) Monocytes % (Manual) Seg Neutrophils # Seg Neutrophils # Man Lymphocytes # (Manual) Monocytes # (Manual) ABG pH POC ABG pCO2 POC ABG pO2 ABG Hemoglobin ABG Oxyhemoglobin ABG Sodium ABG Potassium ABG Chloride ABG Glucose Carboxyhemoglobin Sodium Potassium Chloride BUN Creatinine Glucose POC Glucose 282 H 263 H 200 H Calcium Phosphorus Magnesium AST ALT Total Creatine Kinase CK-MB (CK-2) Troponin T Total Protein Albumin HDL Cholesterol TSH Free T3 Index Arterial Blood Glucose Arterial Blood Ionized Calcium Urine pH Urine WBC (Auto) Urine Creatinine Acetaminophen Crossmatch 04/28/21 04/29/21 04/29/21 23:49 03:24 04:22 WBC RBC Hgb Hct MCV MCH RDW Plt Count Lymph % (Auto) [place] % (Auto) [place] # (Auto) Seg Neutrophils % Seg Neuts % (Manual) Lymphocytes % (Manual) Monocytes % (Manual) Seg Neutrophils # Seg Neutrophils # Man Lymphocytes # (Manual) Monocytes # (Manual) ABG pH 7.546 H POC ABG pCO2 POC ABG pO2 52.4 L ABG Hemoglobin 10.5 L ABG Oxyhemoglobin 88.3 L ABG Sodium ABG Potassium ABG Chloride ABG Glucose 217 H Carboxyhemoglobin 0.4 L Sodium 148 H Potassium Chloride BUN 110 H Creatinine 3.1 H Glucose 208 H POC Glucose 238 H Calcium Phosphorus Magnesium AST ALT Total Creatine Kinase CK-MB (CK-2) Troponin T Total Protein Albumin HDL Cholesterol TSH Free T3 Index Arterial Blood Glucose 217 H Arterial Blood Ionized Calcium Urine pH Urine WBC (Auto) Urine Creatinine Acetaminophen Crossmatch 04/29/21 04/29/21 04/29/21 04:22 05:08 11:26 WBC 15.2 H RBC 3.30 L Hgb 9.8 L Hct MCV MCH RDW Plt Count Lymph % (Auto) [place] % (Auto) [place] # (Auto) Seg Neutrophils % Seg Neuts % (Manual) Lymphocytes % (Manual) Monocytes % (Manual) Seg Neutrophils # Seg Neutrophils # Man Lymphocytes # (Manual) Monocytes # (Manual) ABG pH POC ABG pCO2 POC ABG pO2 ABG Hemoglobin ABG Oxyhemoglobin ABG Sodium ABG Potassium ABG Chloride ABG Glucose Carboxyhemoglobin Sodium Potassium Chloride BUN Creatinine Glucose POC Glucose 181 H 218 H Calcium Phosphorus Magnesium AST ALT Total Creatine Kinase CK-MB (CK-2) Troponin T Total Protein Albumin HDL Cholesterol TSH Free T3 Index Arterial Blood Glucose Arterial Blood Ionized Calcium Urine pH Urine WBC (Auto) Urine Creatinine Acetaminophen Crossmatch 04/29/21 04/29/21 04/30/21 17:06 23:06 03:58 WBC RBC Hgb Hct MCV MCH RDW Plt Count Lymph % (Auto) [place] % (Auto) [place] # (Auto) Seg Neutrophils % Seg Neuts % (Manual) Lymphocytes % (Manual) Monocytes % (Manual) Seg Neutrophils # Seg Neutrophils # Man Lymphocytes # (Manual) Monocytes # (Manual) ABG pH 7.547 H POC ABG pCO2 31.3 L POC ABG pO2 58.4 L ABG Hemoglobin 9.6 L ABG Oxyhemoglobin 91.1 L ABG Sodium ABG Potassium ABG Chloride 108.0 H ABG Glucose 248 H Carboxyhemoglobin 0.2 L Sodium Potassium Chloride BUN Creatinine Glucose POC Glucose 223 H 252 H Calcium Phosphorus Magnesium AST ALT Total Creatine Kinase CK-MB (CK-2) Troponin T Total Protein Albumin HDL Cholesterol TSH Free T3 Index Arterial Blood Glucose 248 H Arterial Blood Ionized Calcium Urine pH Urine WBC (Auto) Urine Creatinine Acetaminophen Crossmatch 04/30/21 04/30/21 04/30/21 05:23 05:54 11:47 WBC RBC Hgb Hct MCV MCH RDW Plt Count Lymph % (Auto) [place] % (Auto) [place] # (Auto) Seg Neutrophils % Seg Neuts % (Manual) Lymphocytes % (Manual) Monocytes % (Manual) Seg Neutrophils # Seg Neutrophils # Man Lymphocytes # (Manual) Monocytes # (Manual) ABG pH POC ABG pCO2 POC ABG pO2 ABG Hemoglobin ABG Oxyhemoglobin ABG Sodium ABG Potassium ABG Chloride ABG Glucose Carboxyhemoglobin Sodium Potassium Chloride BUN 118 H Creatinine 3.3 H Glucose 263 H POC Glucose 244 H 237 H Calcium Phosphorus Magnesium AST ALT Total Creatine Kinase CK-MB (CK-2) Troponin T Total Protein Albumin HDL Cholesterol TSH Free T3 Index Arterial Blood Glucose Arterial Blood Ionized Calcium Urine pH Urine WBC (Auto) Urine Creatinine Acetaminophen Crossmatch 04/30/21 04/30/21 04/30/21 17:26 17:45 23:51 WBC RBC Hgb Hct MCV MCH RDW Plt Count Lymph % (Auto) [place] % (Auto) [place] # (Auto) Seg Neutrophils % Seg Neuts % (Manual) Lymphocytes % (Manual) Monocytes % (Manual) Seg Neutrophils # Seg Neutrophils # Man Lymphocytes # (Manual) Monocytes # (Manual) ABG pH POC ABG pCO2 POC ABG pO2 ABG Hemoglobin ABG Oxyhemoglobin ABG Sodium ABG Potassium ABG Chloride ABG Glucose Carboxyhemoglobin Sodium Potassium Chloride BUN Creatinine Glucose POC Glucose 193 H 197 H Calcium Phosphorus Magnesium AST ALT Total Creatine Kinase CK-MB (CK-2) Troponin T Total Protein Albumin HDL Cholesterol TSH Free T3 Index Arterial Blood Glucose Arterial Blood Ionized Calcium Urine pH Urine WBC (Auto) 48.0 H Urine Creatinine Acetaminophen Crossmatch 05/01/21 05/01/21 05/01/21 04:02 04:57 07:11 WBC 12.3 H RBC 2.83 L Hgb 8.8 L Hct 27.3 L MCV MCH RDW Plt Count Lymph % (Auto) [place] % (Auto) [place] # (Auto) Seg Neutrophils % Seg Neuts % (Manual) 80.0 H Lymphocytes % (Manual) 5.0 L Monocytes % (Manual) Seg Neutrophils # Seg Neutrophils # Man 9.8 H Lymphocytes # (Manual) 0.6 L Monocytes # (Manual) ABG pH 7.466 H POC ABG pCO2 POC ABG pO2 61.4 L ABG Hemoglobin 9.0 L ABG Oxyhemoglobin 91.1 L ABG Sodium ABG Potassium ABG Chloride 110.0 H ABG Glucose 245 H Carboxyhemoglobin Sodium Potassium Chloride BUN Creatinine Glucose POC Glucose 193 H Calcium Phosphorus Magnesium AST ALT Total Creatine Kinase CK-MB (CK-2) Troponin T Total Protein Albumin HDL Cholesterol TSH Free T3 Index Arterial Blood Glucose 245 H Arterial Blood Ionized Calcium Urine pH Urine WBC (Auto) Urine Creatinine Acetaminophen Crossmatch 05/01/21 05/01/21 05/01/21 07:11 07:45 11:30 WBC RBC Hgb Hct MCV MCH RDW Plt Count Lymph % (Auto) [place] % (Auto) [place] # (Auto) Seg Neutrophils % Seg Neuts % (Manual) Lymphocytes % (Manual) Monocytes % (Manual) Seg Neutrophils # Seg Neutrophils # Man Lymphocytes # (Manual) Monocytes # (Manual) ABG pH POC ABG pCO2 POC ABG pO2 ABG Hemoglobin ABG Oxyhemoglobin ABG Sodium ABG Potassium ABG Chloride ABG Glucose Carboxyhemoglobin Sodium 146 H Potassium Chloride 108.4 H BUN 122 H Creatinine 3.4 H Glucose 235 H POC Glucose 212 H 247 H Calcium Phosphorus Magnesium AST ALT Total Creatine Kinase CK-MB (CK-2) Troponin T Total Protein Albumin HDL Cholesterol TSH Free T3 Index Arterial Blood Glucose Arterial Blood Ionized Calcium Urine pH Urine WBC (Auto) Urine Creatinine Acetaminophen Crossmatch 05/01/21 05/01/21 05/01/21 11:31 17:42 23:49 WBC RBC Hgb Hct MCV MCH RDW Plt Count Lymph % (Auto) [place] % (Auto) [place] # (Auto) Seg Neutrophils % Seg Neuts % (Manual) Lymphocytes % (Manual) Monocytes % (Manual) Seg Neutrophils # Seg Neutrophils # Man Lymphocytes # (Manual) Monocytes # (Manual) ABG pH POC ABG pCO2 POC ABG pO2 ABG Hemoglobin ABG Oxyhemoglobin ABG Sodium ABG Potassium ABG Chloride ABG Glucose Carboxyhemoglobin Sodium Potassium Chloride BUN Creatinine Glucose POC Glucose 258 H 171 H 167 H Calcium Phosphorus Magnesium AST ALT Total Creatine Kinase CK-MB (CK-2) Troponin T Total Protein Albumin HDL Cholesterol TSH Free T3 Index Arterial Blood Glucose Arterial Blood Ionized Calcium Urine pH Urine WBC (Auto) Urine Creatinine Acetaminophen Crossmatch 05/02/21 05/02/21 05/02/21 05:12 08:34 11:53 WBC RBC Hgb Hct MCV MCH RDW Plt Count Lymph % (Auto) [place] % (Auto) [place] # (Auto) Seg Neutrophils % Seg Neuts % (Manual) Lymphocytes % (Manual) Monocytes % (Manual) Seg Neutrophils # Seg Neutrophils # Man Lymphocytes # (Manual) Monocytes # (Manual) ABG pH POC ABG pCO2 POC ABG pO2 ABG Hemoglobin ABG Oxyhemoglobin ABG Sodium ABG Potassium ABG Chloride ABG Glucose Carboxyhemoglobin Sodium 148 H Potassium Chloride 110.4 H BUN 124 H Creatinine 3.4 H Glucose 208 H POC Glucose 163 H 185 H Calcium 8.3 L Phosphorus Magnesium AST ALT Total Creatine Kinase CK-MB (CK-2) Troponin T Total Protein Albumin HDL Cholesterol TSH Free T3 Index Arterial Blood Glucose Arterial Blood Ionized Calcium Urine pH Urine WBC (Auto) Urine Creatinine Acetaminophen Crossmatch 05/02/21 05/02/21 05/03/21 17:28 23:32 03:57 WBC RBC Hgb Hct MCV MCH RDW Plt Count Lymph % (Auto) [place] % (Auto) [place] # (Auto) Seg Neutrophils % Seg Neuts % (Manual) Lymphocytes % (Manual) Monocytes % (Manual) Seg Neutrophils # Seg Neutrophils # Man Lymphocytes # (Manual) Monocytes # (Manual) ABG pH 7.531 H POC ABG pCO2 31.0 L POC ABG pO2 64.3 L ABG Hemoglobin 9.0 L ABG Oxyhemoglobin 92.6 L ABG Sodium 145.7 H ABG Potassium ABG Chloride 112.0 H ABG Glucose 202 H Carboxyhemoglobin Sodium Potassium Chloride BUN Creatinine Glucose POC Glucose 147 H 202 H Calcium Phosphorus Magnesium AST ALT Total Creatine Kinase CK-MB (CK-2) Troponin T Total Protein Albumin HDL Cholesterol TSH Free T3 Index Arterial Blood Glucose 202 H Arterial Blood Ionized Calcium Urine pH Urine WBC (Auto) Urine Creatinine Acetaminophen Crossmatch 05/03/21 05/03/21 05/03/21 05:14 05:44 11:10 WBC RBC Hgb Hct MCV MCH RDW Plt Count Lymph % (Auto) [place] % (Auto) [place] # (Auto) Seg Neutrophils % Seg Neuts % (Manual) Lymphocytes % (Manual) Monocytes % (Manual) Seg Neutrophils # Seg Neutrophils # Man Lymphocytes # (Manual) Monocytes # (Manual) ABG pH POC ABG pCO2 POC ABG pO2 ABG Hemoglobin ABG Oxyhemoglobin ABG Sodium ABG Potassium ABG Chloride ABG Glucose Carboxyhemoglobin Sodium 147 H Potassium Chloride 109.7 H BUN 121 H Creatinine 3.1 H Glucose 190 H POC Glucose 175 H 202 H Calcium Phosphorus Magnesium AST ALT Total Creatine Kinase CK-MB (CK-2) Troponin T Total Protein Albumin HDL Cholesterol TSH Free T3 Index Arterial Blood Glucose Arterial Blood Ionized Calcium Urine pH Urine WBC (Auto) Urine Creatinine Acetaminophen Crossmatch 05/03/21 05/04/21 05/04/21 23:58 04:57 04:57 WBC RBC 2.61 L Hgb 8.2 L Hct 25.4 L MCV 98 H MCH RDW 15.3 H Plt Count Lymph % (Auto) [place] % (Auto) [place] # (Auto) Seg Neutrophils % Seg Neuts % (Manual) Lymphocytes % (Manual) Monocytes % (Manual) Seg Neutrophils # Seg Neutrophils # Man Lymphocytes # (Manual) Monocytes # (Manual) ABG pH POC ABG pCO2 POC ABG pO2 ABG Hemoglobin ABG Oxyhemoglobin ABG Sodium ABG Potassium ABG Chloride ABG Glucose Carboxyhemoglobin Sodium 147 H Potassium Chloride 111.0 H BUN 104 H Creatinine 2.8 H Glucose 179 H POC Glucose 131 H Calcium Phosphorus Magnesium AST ALT Total Creatine Kinase CK-MB (CK-2) Troponin T Total Protein Albumin HDL Cholesterol TSH Free T3 Index Arterial Blood Glucose Arterial Blood Ionized Calcium Urine pH Urine WBC (Auto) Urine Creatinine Acetaminophen Crossmatch 05/04/21 05/04/21 05/04/21 05:19 11:28 17:02 WBC RBC Hgb Hct MCV MCH RDW Plt Count Lymph % (Auto) [place] % (Auto) [place] # (Auto) Seg Neutrophils % Seg Neuts % (Manual) Lymphocytes % (Manual) Monocytes % (Manual) Seg Neutrophils # Seg Neutrophils # Man Lymphocytes # (Manual) Monocytes # (Manual) ABG pH POC ABG pCO2 POC ABG pO2 ABG Hemoglobin ABG Oxyhemoglobin ABG Sodium ABG Potassium ABG Chloride ABG Glucose Carboxyhemoglobin Sodium Potassium Chloride BUN Creatinine Glucose POC Glucose 168 H 206 H 213 H Calcium Phosphorus Magnesium AST ALT Total Creatine Kinase CK-MB (CK-2) Troponin T Total Protein Albumin HDL Cholesterol TSH Free T3 Index Arterial Blood Glucose Arterial Blood Ionized Calcium Urine pH Urine WBC (Auto) Urine Creatinine Acetaminophen Crossmatch 05/04/21 05/05/21 05/05/21 23:13 04:55 05:15 WBC RBC Hgb Hct MCV MCH RDW Plt Count Lymph % (Auto) [place] % (Auto) [place] # (Auto) Seg Neutrophils % Seg Neuts % (Manual) Lymphocytes % (Manual) Monocytes % (Manual) Seg Neutrophils # Seg Neutrophils # Man Lymphocytes # (Manual) Monocytes # (Manual) ABG pH POC ABG pCO2 POC ABG pO2 ABG Hemoglobin ABG Oxyhemoglobin ABG Sodium ABG Potassium ABG Chloride ABG Glucose Carboxyhemoglobin Sodium Potassium Chloride BUN 91 H Creatinine 2.4 H Glucose 255 H POC Glucose 232 H 235 H Calcium Phosphorus Magnesium AST ALT Total Creatine Kinase CK-MB (CK-2) Troponin T Total Protein Albumin HDL Cholesterol TSH Free T3 Index Arterial Blood Glucose Arterial Blood Ionized Calcium Urine pH Urine WBC (Auto) Urine Creatinine Acetaminophen Crossmatch 05/05/21 05/05/21 05/05/21 11:41 17:46 23:40 WBC RBC Hgb Hct MCV MCH RDW Plt Count Lymph % (Auto) [place] % (Auto) [place] # (Auto) Seg Neutrophils % Seg Neuts % (Manual) Lymphocytes % (Manual) Monocytes % (Manual) Seg Neutrophils # Seg Neutrophils # Man Lymphocytes # (Manual) Monocytes # (Manual) ABG pH POC ABG pCO2 POC ABG pO2 ABG Hemoglobin ABG Oxyhemoglobin ABG Sodium ABG Potassium ABG Chloride ABG Glucose Carboxyhemoglobin Sodium Potassium Chloride BUN Creatinine Glucose POC Glucose 199 H 231 H 224 H Calcium Phosphorus Magnesium AST ALT Total Creatine Kinase CK-MB (CK-2) Troponin T Total Protein Albumin HDL Cholesterol TSH Free T3 Index Arterial Blood Glucose Arterial Blood Ionized Calcium Urine pH Urine WBC (Auto) Urine Creatinine Acetaminophen Crossmatch 05/06/21 05/06/21 05/06/21 04:00 05:37 07:12 WBC RBC Hgb Hct MCV MCH RDW Plt Count Lymph % (Auto) [place] % (Auto) [place] # (Auto) Seg Neutrophils % Seg Neuts % (Manual) Lymphocytes % (Manual) Monocytes % (Manual) Seg Neutrophils # Seg Neutrophils # Man Lymphocytes # (Manual) Monocytes # (Manual) ABG pH 7.464 H POC ABG pCO2 POC ABG pO2 74.2 L ABG Hemoglobin 10.5 L ABG Oxyhemoglobin ABG Sodium ABG Potassium ABG Chloride 110.0 H ABG Glucose 214 H Carboxyhemoglobin 0.4 L Sodium 146 H Potassium Chloride 110.4 H BUN 82 H Creatinine 2.3 H Glucose 154 H POC Glucose 165 H Calcium Phosphorus Magnesium AST ALT Total Creatine Kinase CK-MB (CK-2) Troponin T Total Protein Albumin HDL Cholesterol TSH Free T3 Index Arterial Blood Glucose 214 H Arterial Blood Ionized Calcium Urine pH Urine WBC (Auto) Urine Creatinine Acetaminophen Crossmatch 05/06/21 05/06/21 05/07/21 17:11 23:40 05:26 WBC RBC Hgb Hct MCV MCH RDW Plt Count Lymph % (Auto) [place] % (Auto) [place] # (Auto) Seg Neutrophils % Seg Neuts % (Manual) Lymphocytes % (Manual) Monocytes % (Manual) Seg Neutrophils # Seg Neutrophils # Man Lymphocytes # (Manual) Monocytes # (Manual) ABG pH POC ABG pCO2 POC ABG pO2 ABG Hemoglobin ABG Oxyhemoglobin ABG Sodium ABG Potassium ABG Chloride ABG Glucose Carboxyhemoglobin Sodium Potassium Chloride BUN Creatinine Glucose POC Glucose 126 H 165 H 156 H Calcium Phosphorus Magnesium AST ALT Total Creatine Kinase CK-MB (CK-2) Troponin T Total Protein Albumin HDL Cholesterol TSH Free T3 Index Arterial Blood Glucose Arterial Blood Ionized Calcium Urine pH Urine WBC (Auto) Urine Creatinine Acetaminophen Crossmatch 05/07/21 05/07/21 05/07/21 08:20 08:20 11:35 WBC RBC 2.58 L Hgb 7.9 L Hct 24.9 L MCV MCH RDW Plt Count Lymph % (Auto) [place] % (Auto) [place] # (Auto) Seg Neutrophils % Seg Neuts % (Manual) Lymphocytes % (Manual) Monocytes % (Manual) Seg Neutrophils # Seg Neutrophils # Man Lymphocytes # (Manual) Monocytes # (Manual) ABG pH POC ABG pCO2 POC ABG pO2 ABG Hemoglobin ABG Oxyhemoglobin ABG Sodium ABG Potassium ABG Chloride ABG Glucose Carboxyhemoglobin Sodium Potassium Chloride 108.4 H BUN 81 H Creatinine 2.4 H Glucose 133 H POC Glucose 112 H Calcium Phosphorus Magnesium AST ALT Total Creatine Kinase CK-MB (CK-2) Troponin T Total Protein Albumin HDL Cholesterol TSH Free T3 Index Arterial Blood Glucose Arterial Blood Ionized Calcium Urine pH Urine WBC (Auto) Urine Creatinine Acetaminophen Crossmatch 05/07/21 05/07/21 05/08/21 17:51 23:27 03:05 WBC RBC Hgb Hct MCV MCH RDW Plt Count Lymph % (Auto) [place] % (Auto) [place] # (Auto) Seg Neutrophils % Seg Neuts % (Manual) Lymphocytes % (Manual) Monocytes % (Manual) Seg Neutrophils # Seg Neutrophils # Man Lymphocytes # (Manual) Monocytes # (Manual) ABG pH 7.454 H POC ABG pCO2 POC ABG pO2 82.1 L ABG Hemoglobin 8.1 L ABG Oxyhemoglobin ABG Sodium ABG Potassium 4.8 H ABG Chloride 111.0 H ABG Glucose 194 H Carboxyhemoglobin Sodium Potassium Chloride BUN Creatinine Glucose POC Glucose 136 H 133 H Calcium Phosphorus Magnesium AST ALT Total Creatine Kinase CK-MB (CK-2) Troponin T Total Protein Albumin HDL Cholesterol TSH Free T3 Index Arterial Blood Glucose 194 H Arterial Blood Ionized Calcium Urine pH Urine WBC (Auto) Urine Creatinine Acetaminophen Crossmatch 05/08/21 05/08/21 05/08/21 05:52 07:07 07:07 WBC 12.0 H RBC 2.94 L Hgb 9.0 L Hct 28.5 L MCV MCH RDW Plt Count Lymph % (Auto) [place] % (Auto) [place] # (Auto) Seg Neutrophils % Seg Neuts % (Manual) Lymphocytes % (Manual) Monocytes % (Manual) Seg Neutrophils # Seg Neutrophils # Man Lymphocytes # (Manual) Monocytes # (Manual) ABG pH POC ABG pCO2 POC ABG pO2 ABG Hemoglobin ABG Oxyhemoglobin ABG Sodium ABG Potassium ABG Chloride ABG Glucose Carboxyhemoglobin Sodium Potassium Chloride BUN 73 H Creatinine 2.2 H Glucose 211 H POC Glucose 194 H Calcium Phosphorus Magnesium AST ALT Total Creatine Kinase CK-MB (CK-2) Troponin T Total Protein Albumin HDL Cholesterol TSH Free T3 Index Arterial Blood Glucose Arterial Blood Ionized Calcium Urine pH Urine WBC (Auto) Urine Creatinine Acetaminophen Crossmatch 05/08/21 05/08/21 05/08/21 11:19 17:20 23:22 WBC RBC Hgb Hct MCV MCH RDW Plt Count Lymph % (Auto) [place] % (Auto) [place] # (Auto) Seg Neutrophils % Seg Neuts % (Manual) Lymphocytes % (Manual) Monocytes % (Manual) Seg Neutrophils # Seg Neutrophils # Man Lymphocytes # (Manual) Monocytes # (Manual) ABG pH POC ABG pCO2 POC ABG pO2 ABG Hemoglobin ABG Oxyhemoglobin ABG Sodium ABG Potassium ABG Chloride ABG Glucose Carboxyhemoglobin Sodium Potassium Chloride BUN Creatinine Glucose POC Glucose 231 H 251 H 295 H Calcium Phosphorus Magnesium AST ALT Total Creatine Kinase CK-MB (CK-2) Troponin T Total Protein Albumin HDL Cholesterol TSH Free T3 Index Arterial Blood Glucose Arterial Blood Ionized Calcium Urine pH Urine WBC (Auto) Urine Creatinine Acetaminophen Crossmatch 05/09/21 05/09/21 05/09/21 05:39 07:36 11:39 WBC RBC Hgb Hct MCV MCH RDW Plt Count Lymph % (Auto) [place] % (Auto) [place] # (Auto) Seg Neutrophils % Seg Neuts % (Manual) Lymphocytes % (Manual) Monocytes % (Manual) Seg Neutrophils # Seg Neutrophils # Man Lymphocytes # (Manual) Monocytes # (Manual) ABG pH POC ABG pCO2 POC ABG pO2 ABG Hemoglobin ABG Oxyhemoglobin ABG Sodium ABG Potassium ABG Chloride ABG Glucose Carboxyhemoglobin Sodium Potassium Chloride BUN 64 H Creatinine 2.2 H Glucose 308 H POC Glucose 240 H 330 H Calcium Phosphorus Magnesium AST ALT Total Creatine Kinase CK-MB (CK-2) Troponin T Total Protein Albumin HDL Cholesterol TSH Free T3 Index Arterial Blood Glucose Arterial Blood Ionized Calcium Urine pH Urine WBC (Auto) Urine Creatinine Acetaminophen Crossmatch 05/09/21 05/09/21 05/10/21 17:37 23:15 05:15 WBC RBC Hgb Hct MCV MCH RDW Plt Count Lymph % (Auto) [place] % (Auto) [place] # (Auto) Seg Neutrophils % Seg Neuts % (Manual) Lymphocytes % (Manual) Monocytes % (Manual) Seg Neutrophils # Seg Neutrophils # Man Lymphocytes # (Manual) Monocytes # (Manual) ABG pH POC ABG pCO2 POC ABG pO2 ABG Hemoglobin ABG Oxyhemoglobin ABG Sodium ABG Potassium ABG Chloride ABG Glucose Carboxyhemoglobin Sodium Potassium Chloride BUN Creatinine Glucose POC Glucose 174 H 152 H 146 H Calcium Phosphorus Magnesium AST ALT Total Creatine Kinase CK-MB (CK-2) Troponin T Total Protein Albumin HDL Cholesterol TSH Free T3 Index Arterial Blood Glucose Arterial Blood Ionized Calcium Urine pH Urine WBC (Auto) Urine Creatinine Acetaminophen Crossmatch 05/10/21 05/10/21 05/10/21 05:36 11:29 17:35 WBC RBC Hgb Hct MCV MCH RDW Plt Count Lymph % (Auto) [place] % (Auto) [place] # (Auto) Seg Neutrophils % Seg Neuts % (Manual) Lymphocytes % (Manual) Monocytes % (Manual) Seg Neutrophils # Seg Neutrophils # Man Lymphocytes # (Manual) Monocytes # (Manual) ABG pH POC ABG pCO2 POC ABG pO2 ABG Hemoglobin ABG Oxyhemoglobin ABG Sodium ABG Potassium ABG Chloride ABG Glucose Carboxyhemoglobin Sodium Potassium Chloride 110.7 H BUN 54 H Creatinine 2.2 H Glucose 164 H POC Glucose 202 H 109 H Calcium Phosphorus Magnesium AST ALT Total Creatine Kinase CK-MB (CK-2) Troponin T Total Protein Albumin HDL Cholesterol TSH Free T3 Index Arterial Blood Glucose Arterial Blood Ionized Calcium Urine pH Urine WBC (Auto) Urine Creatinine Acetaminophen Crossmatch 05/11/21 05/11/21 05/11/21 05:38 07:10 11:54 WBC RBC Hgb Hct MCV MCH RDW Plt Count Lymph % (Auto) [place] % (Auto) [place] # (Auto) Seg Neutrophils % Seg Neuts % (Manual) Lymphocytes % (Manual) Monocytes % (Manual) Seg Neutrophils # Seg Neutrophils # Man Lymphocytes # (Manual) Monocytes # (Manual) ABG pH POC ABG pCO2 POC ABG pO2 ABG Hemoglobin ABG Oxyhemoglobin ABG Sodium ABG Potassium ABG Chloride ABG Glucose Carboxyhemoglobin Sodium Potassium 5.2 H Chloride 108.8 H BUN 50 H Creatinine 2.2 H Glucose 176 H POC Glucose 135 H 219 H Calcium Phosphorus Magnesium AST ALT Total Creatine Kinase CK-MB (CK-2) Troponin T Total Protein Albumin HDL Cholesterol TSH Free T3 Index Arterial Blood Glucose Arterial Blood Ionized Calcium Urine pH Urine WBC (Auto) Urine Creatinine Acetaminophen Crossmatch 05/11/21 05/11/21 05/12/21 17:51 22:50 04:51 WBC RBC Hgb Hct MCV MCH RDW Plt Count Lymph % (Auto) [place] % (Auto) [place] # (Auto) Seg Neutrophils % Seg Neuts % (Manual) Lymphocytes % (Manual) Monocytes % (Manual) Seg Neutrophils # Seg Neutrophils # Man Lymphocytes # (Manual) Monocytes # (Manual) ABG pH POC ABG pCO2 POC ABG pO2 ABG Hemoglobin ABG Oxyhemoglobin ABG Sodium ABG Potassium ABG Chloride ABG Glucose Carboxyhemoglobin Sodium Potassium Chloride 108.2 H BUN 49 H Creatinine 2.2 H Glucose 161 H POC Glucose 169 H 118 H Calcium Phosphorus Magnesium AST ALT Total Creatine Kinase CK-MB (CK-2) Troponin T Total Protein Albumin HDL Cholesterol TSH Free T3 Index Arterial Blood Glucose Arterial Blood Ionized Calcium Urine pH Urine WBC (Auto) Urine Creatinine Acetaminophen Crossmatch 05/12/21 05/12/21 05/12/21 05:05 10:31 11:50 WBC RBC Hgb Hct MCV MCH RDW Plt Count Lymph % (Auto) [place] % (Auto) [place] # (Auto) Seg Neutrophils % Seg Neuts % (Manual) Lymphocytes % (Manual) Monocytes % (Manual) Seg Neutrophils # Seg Neutrophils # Man Lymphocytes # (Manual) Monocytes # (Manual) ABG pH 7.498 H POC ABG pCO2 POC ABG pO2 75.8 L ABG Hemoglobin 7.3 L ABG Oxyhemoglobin 93.4 L ABG Sodium ABG Potassium ABG Chloride 108.0 H ABG Glucose 199 H Carboxyhemoglobin 1.6 H Sodium Potassium Chloride BUN Creatinine Glucose POC Glucose 160 H 160 H Calcium Phosphorus Magnesium AST ALT Total Creatine Kinase CK-MB (CK-2) Troponin T Total Protein Albumin HDL Cholesterol TSH Free T3 Index Arterial Blood Glucose 199 H Arterial Blood Ionized Calcium Urine pH Urine WBC (Auto) Urine Creatinine Acetaminophen Crossmatch 05/12/21 05/12/21 05/13/21 17:39 23:36 05:49 WBC RBC Hgb Hct MCV MCH RDW Plt Count Lymph % (Auto) [place] % (Auto) [place] # (Auto) Seg Neutrophils % Seg Neuts % (Manual) Lymphocytes % (Manual) Monocytes % (Manual) Seg Neutrophils # Seg Neutrophils # Man Lymphocytes # (Manual) Monocytes # (Manual) ABG pH POC ABG pCO2 POC ABG pO2 ABG Hemoglobin ABG Oxyhemoglobin ABG Sodium ABG Potassium ABG Chloride ABG Glucose Carboxyhemoglobin Sodium Potassium Chloride BUN Creatinine Glucose POC Glucose 148 H 148 H 173 H Calcium Phosphorus Magnesium AST ALT Total Creatine Kinase CK-MB (CK-2) Troponin T Total Protein Albumin HDL Cholesterol TSH Free T3 Index Arterial Blood Glucose Arterial Blood Ionized Calcium Urine pH Urine WBC (Auto) Urine Creatinine Acetaminophen Crossmatch 05/13/21 05/13/21 05/13/21 05:58 13:09 17:01 WBC RBC Hgb Hct MCV MCH RDW Plt Count Lymph % (Auto) [place] % (Auto) [place] # (Auto) Seg Neutrophils % Seg Neuts % (Manual) Lymphocytes % (Manual) Monocytes % (Manual) Seg Neutrophils # Seg Neutrophils # Man Lymphocytes # (Manual) Monocytes # (Manual) ABG pH POC ABG pCO2 POC ABG pO2 ABG Hemoglobin ABG Oxyhemoglobin ABG Sodium ABG Potassium ABG Chloride ABG Glucose Carboxyhemoglobin Sodium Potassium Chloride 108.0 H BUN 53 H Creatinine 2.2 H Glucose 178 H POC Glucose 191 H 151 H Calcium Phosphorus Magnesium AST ALT Total Creatine Kinase CK-MB (CK-2) Troponin T Total Protein Albumin HDL Cholesterol TSH Free T3 Index Arterial Blood Glucose Arterial Blood Ionized Calcium Urine pH Urine WBC (Auto) Urine Creatinine Acetaminophen Crossmatch 05/14/21 05/14/21 05/14/21 00:02 04:48 08:16 WBC RBC Hgb Hct MCV MCH RDW Plt Count Lymph % (Auto) [place] % (Auto) [place] # (Auto) Seg Neutrophils % Seg Neuts % (Manual) Lymphocytes % (Manual) Monocytes % (Manual) Seg Neutrophils # Seg Neutrophils # Man Lymphocytes # (Manual) Monocytes # (Manual) ABG pH POC ABG pCO2 POC ABG pO2 ABG Hemoglobin ABG Oxyhemoglobin ABG Sodium ABG Potassium ABG Chloride ABG Glucose Carboxyhemoglobin Sodium Potassium Chloride BUN 45 H Creatinine 2.0 H Glucose 207 H POC Glucose 148 H 193 H Calcium Phosphorus Magnesium AST ALT Total Creatine Kinase CK-MB (CK-2) Troponin T Total Protein Albumin HDL Cholesterol TSH Free T3 Index Arterial Blood Glucose Arterial Blood Ionized Calcium Urine pH Urine WBC (Auto) Urine Creatinine Acetaminophen Crossmatch 05/14/21 05/14/21 05/14/21 08:50 12:44 17:29 WBC RBC 2.16 L Hgb 7.0 L Hct 21.2 L MCV 98 H MCH 33 H RDW 16.0 H Plt Count Lymph % (Auto) [place] % (Auto) [place] # (Auto) Seg Neutrophils % Seg Neuts % (Manual) Lymphocytes % (Manual) Monocytes % (Manual) Seg Neutrophils # Seg Neutrophils # Man Lymphocytes # (Manual) Monocytes # (Manual) ABG pH POC ABG pCO2 POC ABG pO2 ABG Hemoglobin ABG Oxyhemoglobin ABG Sodium ABG Potassium ABG Chloride ABG Glucose Carboxyhemoglobin Sodium Potassium Chloride BUN Creatinine Glucose POC Glucose 215 H 118 H Calcium Phosphorus Magnesium AST ALT Total Creatine Kinase CK-MB (CK-2) Troponin T Total Protein Albumin HDL Cholesterol TSH Free T3 Index Arterial Blood Glucose Arterial Blood Ionized Calcium Urine pH Urine WBC (Auto) Urine Creatinine Acetaminophen Crossmatch 05/14/21 05/15/21 05/15/21 19:00 05:11 05:51 WBC RBC Hgb Hct MCV MCH RDW Plt Count Lymph % (Auto) [place] % (Auto) [place] # (Auto) Seg Neutrophils % Seg Neuts % (Manual) Lymphocytes % (Manual) Monocytes % (Manual) Seg Neutrophils # Seg Neutrophils # Man Lymphocytes # (Manual) Monocytes # (Manual) ABG pH POC ABG pCO2 POC ABG pO2 ABG Hemoglobin ABG Oxyhemoglobin ABG Sodium ABG Potassium ABG Chloride ABG Glucose Carboxyhemoglobin Sodium Potassium 5.3 H Chloride BUN 42 H Creatinine 2.0 H Glucose 123 H POC Glucose 116 H Calcium Phosphorus Magnesium AST ALT Total Creatine Kinase CK-MB (CK-2) Troponin T Total Protein Albumin HDL Cholesterol TSH Free T3 Index Arterial Blood Glucose Arterial Blood Ionized Calcium Urine pH Urine WBC (Auto) Urine Creatinine Acetaminophen Crossmatch See Detail 05/15/21 05/15/21 05/15/21 05:51 11:27 22:00 WBC RBC 2.60 L Hgb 8.0 L Hct 24.6 L MCV MCH RDW 17.0 H Plt Count Lymph % (Auto) [place] % (Auto) 15.3 H [place] # (Auto) 1.1 H Seg Neutrophils % Seg Neuts % (Manual) Lymphocytes % (Manual) Monocytes % (Manual) Seg Neutrophils # Seg Neutrophils # Man Lymphocytes # (Manual) Monocytes # (Manual) ABG pH 7.473 H POC ABG pCO2 POC ABG pO2 77.7 L ABG Hemoglobin 8.4 L ABG Oxyhemoglobin ABG Sodium ABG Potassium 4.7 H ABG Chloride ABG Glucose 104 H Carboxyhemoglobin Sodium Potassium Chloride BUN Creatinine Glucose POC Glucose 156 H Calcium Phosphorus Magnesium AST ALT Total Creatine Kinase CK-MB (CK-2) Troponin T Total Protein Albumin HDL Cholesterol TSH Free T3 Index Arterial Blood Glucose 104 H Arterial Blood Ionized Calcium Urine pH Urine WBC (Auto) Urine Creatinine Acetaminophen Crossmatch 05/16/21 05/16/21 05/16/21 05:25 06:40 11:57 WBC RBC Hgb Hct MCV MCH RDW Plt Count Lymph % (Auto) [place] % (Auto) [place] # (Auto) Seg Neutrophils % Seg Neuts % (Manual) Lymphocytes % (Manual) Monocytes % (Manual) Seg Neutrophils # Seg Neutrophils # Man Lymphocytes # (Manual) Monocytes # (Manual) ABG pH POC ABG pCO2 POC ABG pO2 ABG Hemoglobin ABG Oxyhemoglobin ABG Sodium ABG Potassium ABG Chloride ABG Glucose Carboxyhemoglobin Sodium Potassium 5.4 H Chloride BUN 39 H Creatinine 2.0 H Glucose 165 H POC Glucose 143 H 191 H Calcium Phosphorus Magnesium AST ALT Total Creatine Kinase CK-MB (CK-2) Troponin T Total Protein Albumin HDL Cholesterol TSH Free T3 Index Arterial Blood Glucose Arterial Blood Ionized Calcium Urine pH Urine WBC (Auto) Urine Creatinine Acetaminophen Crossmatch 05/16/21 05/16/21 05/17/21 17:18 23:02 05:08 WBC RBC Hgb Hct MCV MCH RDW Plt Count Lymph % (Auto) [place] % (Auto) [place] # (Auto) Seg Neutrophils % Seg Neuts % (Manual) Lymphocytes % (Manual) Monocytes % (Manual) Seg Neutrophils # Seg Neutrophils # Man Lymphocytes # (Manual) Monocytes # (Manual) ABG pH POC ABG pCO2 POC ABG pO2 ABG Hemoglobin ABG Oxyhemoglobin ABG Sodium ABG Potassium ABG Chloride ABG Glucose Carboxyhemoglobin Sodium Potassium Chloride BUN Creatinine Glucose POC Glucose 157 H 127 H 171 H Calcium Phosphorus Magnesium AST ALT Total Creatine Kinase CK-MB (CK-2) Troponin T Total Protein Albumin HDL Cholesterol TSH Free T3 Index Arterial Blood Glucose Arterial Blood Ionized Calcium Urine pH Urine WBC (Auto) Urine Creatinine Acetaminophen Crossmatch 05/17/21 05/17/21 07:43 07:43 WBC RBC 2.83 L Hgb 8.6 L Hct 26.8 L MCV MCH RDW 16.2 H Plt Count Lymph % (Auto) [place] % (Auto) [place] # (Auto) Seg Neutrophils % Seg Neuts % (Manual) Lymphocytes % (Manual) Monocytes % (Manual) Seg Neutrophils # Seg Neutrophils # Man Lymphocytes # (Manual) Monocytes # (Manual) ABG pH POC ABG pCO2 POC ABG pO2 ABG Hemoglobin ABG Oxyhemoglobin ABG Sodium ABG Potassium ABG Chloride ABG Glucose Carboxyhemoglobin Sodium Potassium Chloride BUN 39 H Creatinine 2.1 H Glucose 183 H POC Glucose Calcium Phosphorus Magnesium AST ALT Total Creatine Kinase CK-MB (CK-2) Troponin T Total Protein Albumin HDL Cholesterol TSH Free T3 Index Arterial Blood Glucose Arterial Blood Ionized Calcium Urine pH Urine WBC (Auto) Urine Creatinine Acetaminophen Crossmatch Allied health notes reviewed: nursing
[2021-05-17] MEDS ORDERED: SODIUM CHLORIDE 0.9% 250ML 250 ML IV ONE (14:58)
[2021-05-17] MEDS ORDERED: MIDODRINE 5 MG TAB PO ONE (15:00)
[2021-05-17] MEDS: SODIUM CHLORIDE 0.9% 1000 ML 1,000 ML IV SCH (15:15)
[2021-05-17] MEDS: MIDODRINE 5 MG TAB PO SCH (16:39)
--- NOTE | 2021-05-17 16:49 | Progress Note ---
<JEREMYPURNIMA LeyvaElvia - Last Filed: 05/17/21 16:48> Assessment and Plan Assessment and plan: This is a 80-year-old female with HTN, DM, [place], breast CA s/p double mastectomy, TIA who presented with hypoglycemia, AMS who was admitted with SIRS, symptomatic bradycardia, acute metabolic encephalopathy, acute hypoxic respiratory failure, elevated TSH, hyperglycemia, hyponatremia, hypokalemia, ROJELIO and rhabdomyolysis Acute metabolic encephalopathy-persist Acute hypoxic respiratory failure (extubated 04/20)- Re-intubated secondary to Stridor and paradoxical breathing - s/p trach and PEG First-degree heart block Resolved ileus versus mechanical obstruction Acute kidney injury with vasomotor nephropathy UTI, Pseudomonas/ Earline Elevated TSH Mild rhabdomyolysis Hypertension Diabetes mellitus with hyperglycemia on admission CAD Hypothyroidism Chronic illness debilitymyopathy Obesity -CCM, nephrology, neurology, cardiology consulted, patient recommendations -S/p D10 and D5W gtt, on TF -S/p IV calcium gluconate, regular insulin, D50 -S/p transcutaneous pacing, intermittent demand pacer in place -Renal ultrasound findings consistent with acute on chronic kidney disease, mildly complex right renal cyst -Blood pressure monitoring per protocol -Accu-Cheks every 6, SSI, long acting insulin -IV hydralazine as needed -midodrine -04/25 EEG is mildly abnormal with mild slowing noted throughout the recording, suggestive of mild cortical dysfunction and/or drug effect -04/20 EEG shows mildly abnormal record due to diffuse background slowing noted throughout the recording, intermittent motion artifact, patient intubated and sedated at time of study, no sign of seizures as well epilepticus noted, possible toxic metabolic encephalopathy, drug effect, possible postictal state cannot be totally excluded. -Avoid ACEi/ARB in setting of ROJELIO -Avoid AV arron blocking agents -Avoid nephrotoxic agents and renally dose medications -BB, hydralazine, amlodipine -TSH 14.1, T4 4.1, T3 1.1-started on levothyroxine -As needed racemic epinephrine -S/p steroids -s/p Antibiotic therapy -Trend CBC, BMP DVT/GI prophylaxis: Heparin subcu, PPI, SCDs to bilateral lower extremities while in bed Disposition: transfer to floor The high probability of a clinically significant, sudden or life threatening deterioration of the [PULMONARY, CARDIAC, RENAL] system(s) required my full and direct attention, intervention and personal management. The aggregate critical care time was [35] minutes. This time is in addition to time spent performing reported procedures but includes the following: [X] Data Review and interpretation [X] Patient assessment and monitoring of vital signs [X] Documentation [X] Medication orders and management History Interval history: This is a 80-year-old female with hypertension, diabetes mellitus, [place], breast cancer s/p double mastectomy, and a TIA who presented with hypoglycemia and altered mental status on 04/15 via EMS. Per EMS patient was unresponsive on their arrival and her blood glucose was 38 and she received 1 amp of dextrose patient continued to be unresponsive and only moaned with her eyes deviating to the left. Work-up in the emergency department revealed SIRS, symptomatic bradycardia, acute metabolic encephalopathy, acute hypoxic respiratory failure, elevated TSH, hyperglycemia, hyponatremia, hyperkalemia, acute kidney injury with ATN, and rhabdomyolysis 04/16: Neurology consulted, COVID-19 PCR negative, D10 drip decreased and event ually discontinued by [facility] and started on D5W for 1 L. Hydralazine as needed. Patient had hyper kalemia today and was treated with D50, insulin and Kayexalate. This time examination patient is on assist control tidal volume 450, rate of 16, PEEP of 6 and 25% FiO2. 04/17: Patient started on low-dose beta-angel per cardiology, CPAP trial again per [facility], BUN/creatinine holding steady and hypochloremia/hyponatremia slightly improved and hypokalemia has resolved. This morning a KUB was obtained which was concerning for ileus versus mechanical obstruction and surgery was consulted. Patient was made n.p.o. and NG tube placed to wall suction. Patient was given suppository. Per RN patient did not have a BM even though she was given Kayexalate yesterday. Will obtain a KUB in the a.m. Neurology was consulted yesterday and will await further recommendations. Nephew updated at bedside today, Carlos Romero. 04/18: Neurology has ordered EEG/MRI B, [facility] continues to wean MV. Persistent low grade temperature so we will obtain BCx2/UA. Patient has improving leukocytosis, hyponatremia, renal function studies and hypochloremia. She has hypokalemia today which is being repleted. Surgery has signed off today and has okayed resumption of TF. [facility] will trial CPAP for longer today and plans to attempt extubation in AM. Family has requested transfer to [place] and Dr. Gordon will attempt to contact transfer center. I updated her nephew, Carlos Romero over the phone today abouyt current events and update on transfer ([facility] will conduct a utilization review) 04/19: This morning patient is on CPAP trial at the time of examination, noted to be hypertensive and metoprolol increased to home dose, started on synthroid by [facility], lantus started re hyperglycemia, MRI completed with no acute findings. Severe hypokalemia (repleted and Mg pending). [facility] will contact CPAP trial again today with possible trial extubation tomorrow. 04/20: Patient's leukocytosis and kidney function tests continue to improve. Patient is hypertensive overnight we will restart home hydralazine. [facility] plans to extubate patient today. Family is attempting to transfer to another facility. EEG pending, RT will atmept to contact electronic engineering technician. Urine culture grew gram negative rods. Increase in lantus 04/21: Increase in Lantus, repleted phos. Patient has started this afternoon and was given racemic epinephrine and started on steroids. Patient will have BiPAP as needed. We will recheck BMP in the a.m. renal function studies continues to decrease. Patient has been hypertensive on evaluation regimen has been changed. 04/22: Lantus increased for hyperglycemia and add amlodipine for better BP control. Patient is on steroids. OT suctioned by RN with catheter in oral care kit and received copious amounts of secretions. Cr continues to decrease. Culture grew Pseudomonas and was changed in accordance to sensitivity. Kerr removed today after clearance from nephrology. 04/23: MRI of the brain was done and unremarkable. Will obtain reconsult to nephrology for further assistance as patient remains in profound encephalopathy despite improvement of blood sugar. Will repeat chest x-ray as patient does have significant congestion physical exam. Tube feeds still ongoing. Continue aspiration precautions. Continue antibiotics when completed for Pseudomonas management 04/24: Neurology input noted, patient unfortunately with no improvement mental status milton, continues with congestion, will defer with Master Glazier for lasix in the setting of renal failure. will give kayexlate for hyperkalemia, still moans and groans, mittens in place. 04/25: Patient currently intubated, on restraints for safety, Profund e ncephalopathy persist, although awake she is not following any commands, Call placed to [facility] to see if they will accept transfer for ENT evaluation, while CT neck was negative, it was degraded by motion and unable to determent why patient had this stridor, Racemic Epinephrine was given, [facility] is on ICU saturation, but will call back with an ENT to discuss case. Renal function mildly worse, continue to monitor. Per cardiology, no further arrhythmias noted since admission. Given short duration of atrial fibrillation, along with pt's age, renal fxn, and other co- morbidities,...will resume additional medical therapies for underlying severe multi-vessel CAD (bASA & Plavix). Pt has previously declined intervention of known lesions as per her Primary Patrol Supervisor. 04/26: Now with febrile illness, ?developing infection, start on empiric abx, check lactate level, blood cultures, continue management per Technician Trainee, Monitor leukocytosis, agree with Trach, family updated about denials in transfer request from outside hospitals. 04/27: WBC improving some, still with fever despite antibotics, ID consulted. CXR clear, continue current management, Trach will be planned if ok with family. Blood sugar remains elevated, will adjust insulin LANTUS to 40 units. Patient had previously completed Cefepime. Mental status remains unchanged, still moves upper ext. continue restraints 04/28: Continue supportive care. No new fever noted. Critical care physician will determine if patient should be have a trial of extubation again or if we should proceed straight to trach. Again continue to monitor mental status for complete improvement. 04/29: Per Technician Trainee discussion with family, will proceed to Tracheostomy, Patients mental status still fluctuating, Continue current management. Surgeon consulted. 04/30: General surgery consulted for trach, continue to trend CBC and BMP. Kidney function slightly worsened today. Increase in Lantus. Tmax 100.2, per ID will consider imaging if leukocytosis remains elevated with fevers. Plavix held for possible tracheostomy next week. 05/01: Patient fever curve is trending down with improving leukocytosis. Patient renal function worsened today. She remains hyperglycemic and her Lantus was increased to her home dose of Novolin 70/30. Patient was rate controlled yesterday due to T-max of 101. She remains on CMV tidal volume 450, rate of 10, PEEP of 6 and 30% FiO2. We will increase the water flushes given slight hypernatremia. Dr. Andrea updated nephew (Carlos) at bedside. CPAP trails. 05/02: Patient's hypernatremia and hyperchloremia slightly worsened and femur fractures were increased. Kidney functions remain the same however BUN is in the 100s. Nephrology is following. Kerr catheter was removed. Awaiting trach placement with possibility on Friday. 05/03: Patient grew Earline in her urine culture however per ID and the Kerr was already exchanged. Patient is on cefepime and Flagyl. Plavix still on hold awaiting trach. CCM started the patient on half-normal saline at 75 mL/h for 2 L related to azatoma and hypernatremia. Patient mental status continues to wax and wane. Creatinine is 3.1 today from 3.4 yesterday. Patient had a bowel movement today. Patient remains hyperglycemic and Lantus was changed from a.m. to p.m.. 05/04: Patient's renal function is improving, surgery obtain consent for trach/PEG scheduled for 05/07, antibiotics to end tomorrow. We will obtain BMP in the a.m. Lantus dosage change from AC to at bedtime in hopes of better glycemic control. 05/05: Patient Lantus dose is changed to twice daily in hopes of better glycemic control. Awaiting surgical procedure hopefully on Friday. Patient's BUN/creatinine improved and hypernatremia has resolved. 05/06: Patient has slight hypernatremia and hyperchloremia and improvement to BUN/creatinine. Better glycemic control. Awaiting trach on Friday. NGT was displaced but now replaced and TF resumed. 05/07 This is a 80-year-old female with HTN, DM, [place], breast CA s/p double mastectomy, TIA who presented with hypoglycemia, AMS who was admitted with SIRS, symptomatic bradycardia, acute metabolic encephalopathy, acute hypoxic respiratory failure, elevated TSH, hyperglycemia, hyponatremia, hypokalemia, ROJELIO and rhabdomyolysis. She is for Trach and PEG today. 05/08: s/p trach and PEG placement yesterday. cont to monitor, wean off from vent as tolertaed 05/09: Patient started on tube feeding and tolerating well. Currently on CPAP setting with newly placed trach. Discussed with case management and patient would need placement. Continue supportive care and follow clinically. 05/10: Continue supportive care, patient is tolerating tube feeding diet. Remains on CPAP with trach. Pending LTAC placement. 05/11: Continue supportive care, patient is tolerating tube feeding diet. Remains on CPAP with trach. Plan to wean off from Vent as tolerates and to place on t-piece. 05/12; Patient placed on t-piece today, tolerating TF, cont to monitor clinically. follow CBC/BMP 05/13: Remains on t-piece, plan to wean off to wall T-piece. If unable to wean off from vent then patient will need criteria for LTAC upon her insurance requirement. If she tolerates weaning trial and able to maintain T-piece then she will be discharged back to assisted. Ordered for a.m. labs. Continue to follow clinically with supportive care. 05/14: Pending placement. Patient back on Mechanical ventilation today with trach tube. Hemoglobin 7.0. Will transfuse 1 unit packed RBC. Continue to monitor clinically. 05/15: Pending placement, [facility] continues to trial patient on trach collar for as long as tolerated. Patient is H/H improved to 8/24.6 after 1 unit PRBC. Renal function continues to fluctuate and is currently at CR 2/BUN 42. Patient is slightly hyperkalemic today at 5.3 and received 30 g of Kionex. We will obtain a.m. BMP and continue to trend CBC. Patient is hypertensive and hydralazine dose has been increased. 05/16: Patient noted to have hyperkalemia again today and was treated. Patient continued T-piece on 20% FiO2 for over 24 hours. This afternoon patient was noted to be off of trach collar and SPO2 was still in the mid 90s. Trach collar was replaced. We will remove Kerr catheter and BladderScan the patient every 4 hours. 05/17: Patient has been started on midodrine and given approximately 750 ML IV fluid bolus in response to hypotension. Will receive normal saline at 75 for another 2 L. Has a standing order for bladder scans every 4 and straight cath if needed. Patient will be transferred to telemetry today. Hospitalist Physical - Constitutional Vitals: Temp Pulse Resp BP Pulse Ox 98.7 F 76 21 128/57 99 05/17/21 16:00 05/17/21 16:30 05/17/21 16:30 05/17/21 16:30 05/17/21 16:30 General appearance: Present: no acute distress, other (intubated, on mechanical ventilation) - EENT Eyes: Present: PERRL, EOM intact - Neck Neck: Present: normal ROM - Respiratory Respiratory effort: normal Respiratory: bilateral: CTA - Cardiovascular Rhythm: regular Heart Sounds: Present: S1 & S2. Absent: systolic murmur, diastolic murmur - Extremities Extremities: no ischemia, pulses intact, pulses symmetrical, normal temperature, normal color Peripheral Pulses: within normal limits - Abdominal General gastrointestinal: soft, non-tender, non-distended, normal bowel sounds - Integumentary Integumentary: Present: warm, dry - Psychiatric Psychiatric: cooperative - Allied Health Allied health notes reviewed: nursing, RT HEART Score - HEART Score Troponin: Troponin T 0.065 ng/mL (0.00-0.029) H 04/20/21 03:32 Results - Labs CBC & Chem 7: 05/17/21 07:43 05/17/21 07:43 Labs: Laboratory Last Values WBC 10.0 K/mm3 (4.5-11.0) 05/17/21 07:43 RBC 2.83 M/mm3 (3.65-5.03) L 05/17/21 07:43 Hgb 8.6 gm/dl (10.1-14.3) L 05/17/21 07:43 Hct 26.8 % (30.3-42.9) L 05/17/21 07:43 MCV 95 fl (79-97) 05/17/21 07:43 MCH 30 pg (28-32) 05/17/21 07:43 MCHC 32 % (30-34) 05/17/21 07:43 RDW 16.2 % (13.2-15.2) H 05/17/21 07:43 Plt Count 290 K/mm3 (140-440) 05/17/21 07:43 Lymph % (Auto) 21.1 % (13.4-35.0) 05/15/21 05:51 [place] % (Auto) 15.3 % (0.0-7.3) H 05/15/21 05:51 Eos % (Auto) 2.9 % (0.0-4.3) 05/15/21 05:51 Baso % (Auto) 0.4 % (0.0-1.8) 05/15/21 05:51 Lymph # (Auto) 1.5 K/mm3 (1.2-5.4) 05/15/21 05:51 [place] # (Auto) 1.1 K/mm3 (0.0-0.8) H 05/15/21 05:51 Eos # (Auto) 0.2 K/mm3 (0.0-0.4) 05/15/21 05:51 Baso # (Auto) 0.0 K/mm3 (0.0-0.1) 05/15/21 05:51 Add Manual Diff Complete 05/01/21 07:11 Total Counted 100 05/01/21 07:11 Seg Neutrophils % 60.3 % (40.0-70.0) 05/15/21 05:51 Seg Neuts % (Manual) 80.0 % (40.0-70.0) H 05/01/21 07:11 Band Neutrophils % 7.0 % 05/01/21 07:11 Lymphocytes % (Manual) 5.0 % (13.4-35.0) L 05/01/21 07:11 Monocytes % (Manual) 6.0 % (0.0-7.3) 05/01/21 07:11 Eosinophils % (Manual) 1.0 % (0.0-4.3) 05/01/21 07:11 Metamyelocytes % 1.0 % 05/01/21 07:11 Nucleated RBC % Not Reportable 05/01/21 07:11 Seg Neutrophils # 4.3 K/mm3 (1.8-7.7) 05/15/21 05:51 Seg Neutrophils # Man 9.8 K/mm3 (1.8-7.7) H 05/01/21 07:11 Band Neutrophils # 0.9 K/mm3 05/01/21 07:11 Lymphocytes # (Manual) 0.6 K/mm3 (1.2-5.4) L 05/01/21 07:11 Abs React Lymphs (Man) 0.0 K/mm3 05/01/21 07:11 Monocytes # (Manual) 0.7 K/mm3 (0.0-0.8) 05/01/21 07:11 Eosinophils # (Manual) 0.1 K/mm3 (0.0-0.4) 05/01/21 07:11 Basophils # (Manual) 0.0 K/mm3 (0.0-0.1) 05/01/21 07:11 Metamyelocytes # 0.1 K/mm3 05/01/21 07:11 Myelocytes # 0.0 K/mm3 05/01/21 07:11 Promyelocytes # 0.0 K/mm3 05/01/21 07:11 Blast Cells # 0.0 K/mm3 05/01/21 07:11 WBC Morphology Not Reportable 05/01/21 07:11 Hypersegmented Neuts Not Reportable 05/01/21 07:11 Hyposegmented Neuts Not Reportable 05/01/21 07:11 Hypogranular Neuts Not Reportable 05/01/21 07:11 Smudge Cells Not Reportable 05/01/21 07:11 Toxic Granulation Not Reportable 05/01/21 07:11 Toxic Vacuolation Not Reportable 05/01/21 07:11 Dohle Bodies Not Reportable 05/01/21 07:11 Pelger-Huet Anomaly Not Reportable 05/01/21 07:11 Peterson Rods Not Reportable 05/01/21 07:11 Platelet Estimate Consistent w auto 05/01/21 07:11 Clumped Platelets Not Reportable 05/01/21 07:11 Plt Clumps, EDTA Not Reportable 05/01/21 07:11 Large Platelets Not Reportable 05/01/21 07:11 Giant Platelets Not Reportable 05/01/21 07:11 Platelet Satelliting Not Reportable 05/01/21 07:11 Plt Morphology Comment Not Reportable 05/01/21 07:11 RBC Morphology Normal 05/01/21 07:11 Dimorphic RBCs Not Reportable 05/01/21 07:11 Polychromasia Not Reportable 05/01/21 07:11 Hypochromasia Not Reportable 05/01/21 07:11 Poikilocytosis Not Reportable 05/01/21 07:11 Anisocytosis Not Reportable 05/01/21 07:11 Microcytosis Not Reportable 05/01/21 07:11 Macrocytosis Not Reportable 05/01/21 07:11 Spherocytes Not Reportable 05/01/21 07:11 Pappenheimer Bodies Not Reportable 05/01/21 07:11 Sickle Cells Not Reportable 05/01/21 07:11 Target Cells Not Reportable 05/01/21 07:11 Tear Drop Cells Not Reportable 05/01/21 07:11 Ovalocytes Not Reportable 05/01/21 07:11 Helmet Cells Not Reportable 05/01/21 07:11 Law-Lynch Bodies Not Reportable 05/01/21 07:11 Premium Rings Not Reportable 05/01/21 07:11 Theo Cells Not Reportable 05/01/21 07:11 Bite Cells Not Reportable 05/01/21 07:11 Crenated Cell Not Reportable 05/01/21 07:11 Elliptocytes Not Reportable 05/01/21 07:11 Acanthocytes (Spur) Not Reportable 05/01/21 07:11 Rouleaux Not Reportable 05/01/21 07:11 Hemoglobin C Crystals Not Reportable 05/01/21 07:11 Schistocytes Not Reportable 05/01/21 07:11 Malaria parasites Not Reportable 05/01/21 07:11 James Bodies Not Reportable 05/01/21 07:11 Hem Pathologist Commnt No 05/01/21 07:11 PT 14.8 Sec. (12.2-14.9) 05/07/21 08:20 INR 1.11 (0.87-1.13) 05/07/21 08:20 APTT 31.8 Sec. (24.2-36.6) 04/15/21 17:20 ABG pH 7.473 (7.320-7.450) H 05/15/21 22:00 POC ABG pCO2 35.5 mmHg (32.0-48.0) 05/15/21 22:00 POC ABG pO2 77.7 mmHg (83-108) L 05/15/21 22:00 POC ABG HCO3 25.4 05/15/21 22:00 ABG O2 Saturation 96.1 (0-100) 05/15/21 22:00 POC ABG Base Excess 1.8 05/15/21 22:00 ABG Hemoglobin 8.4 (12.0-17.5) L 05/15/21 22:00 ABG Oxyhemoglobin 95.0 (94-98) 06/15/21 22:00 ABG Methemoglobin 0.3 (0.0-1.5) 05/15/21 22:00 ABG Sodium 138.5 mmol/L (136.0-145.0) 05/15/21 22:00 ABG Potassium 4.7 mmol/L (3.40-4.50) H 05/15/21 22:00 ABG Chloride 105.0 mmol/L (98-107) 05/15/21 22:00 ABG Glucose 104 mg/dL (65-95) H 05/15/21 22:00 Carboxyhemoglobin 0.8 (0.5-1.5) 05/15/21 22:00 FiO2 % 28.0 05/15/21 22:00 Sodium 140 mmol/L (137-145) 05/17/21 07:43 Potassium 4.5 mmol/L (3.6-5.0) 05/17/21 07:43 Chloride 102.4 mmol/L (98-107) 05/17/21 07:43 Carbon Dioxide 27 mmol/L (22-30) 05/17/21 07:43 Anion Gap 15 mmol/L 05/17/21 07:43 BUN 39 mg/dL (7-17) H 05/17/21 07:43 Creatinine 2.1 mg/dL (0.6-1.2) H 05/17/21 07:43 Estimated GFR 27 ml/min 05/17/21 07:43 BUN/Creatinine Ratio 19 % 05/17/21 07:43 Glucose 183 mg/dL (65-100) H 05/17/21 07:43 POC Glucose 182 mg/dL (70-105) H 05/17/21 11:11 Lactic Acid 1.10 mmol/L (0.7-2.0) 04/26/21 09:30 Calcium 9.8 mg/dL (8.4-10.2) 05/17/21 07:43 Phosphorus 2.60 mg/dL (2.5-4.5) 04/22/21 08:00 Magnesium 2.10 mg/dL (1.7-2.3) 04/23/21 07:02 Total Bilirubin 0.30 mg/dL (0.1-1.2) 04/28/21 04:13 Direct Bilirubin < 0.2 mg/dL (0-0.2) 04/28/21 04:13 Indirect Bilirubin 0.1 mg/dL 04/28/21 04:13 AST 61 units/L (5-40) H 04/28/21 04:13 ALT 64 units/L (7-56) H 04/28/21 04:13 Alkaline Phosphatase 95 units/L (35-129) 04/28/21 04:13 Ammonia 46.0 umol/L (25-60) 04/15/21 17:20 Total Creatine Kinase 63 units/L (30-135) 05/17/21 07:43 CK-MB (CK-2) 9.1 ng/mL (0.0-4.0) H 04/17/21 15:35 CK-MB (CK-2) Rel Index 1.4 (0-4) 04/17/21 15:35 Troponin T 0.065 ng/mL (0.00-0.029) H 04/20/21 03:32 NT-Pro-B Natriuret Pep 697.9 pg/mL (0-900) 04/15/21 17:20 Total Protein 6.2 g/dL (6.3-8.2) L 04/28/21 04:13 Albumin 2.6 g/dL (3.9-5) L 04/28/21 04:13 Albumin/Globulin Ratio 0.7 % 04/28/21 04:13 Triglycerides 103 mg/dL (2-149) 04/17/21 05:04 Cholesterol 122 mg/dL (50-199) 04/17/21 05:04 LDL Cholesterol Direct 55 mg/dL (50-130) 04/17/21 05:04 HDL Cholesterol 61 mg/dL (40-59) H 04/17/21 05:04 Cholesterol/HDL Ratio 2.00 % 04/17/21 05:04 Procalcitonin 0.20 ng/mL (<0.15) 04/16/21 19:01 TSH 14.190 mlU/mL (0.270-4.200) H 04/15/21 17:20 Thyroxine (T4) 4.1 ug/dL (4.0-12.0) 04/16/21 19:01 Free T3 Index 1.1 pg/mL (2.3-4.2) L 04/16/21 19:01 Arterial Blood Glucose 104 mg/dL (65-95) H 05/15/21 22:00 Arterial Blood Ionized Calcium 5.1 mg/dL (4.6-5.3) 05/15/21 22:00 Urine Color Yellow (Yellow) 04/30/21 17:45 Urine Turbidity Cloudy (Clear) 04/30/21 17:45 Urine pH 5.0 (5.0-7.0) 04/30/21 17:45 Ur Specific [place] 1.016 (1.003-1.030) 04/30/21 17:45 Urine Protein 100 mg/dl mg/dL (Negative) 04/30/21 17:45 Urine Glucose (UA) Neg mg/dL (Negative) 04/30/21 17:45 Urine Ketones Neg mg/dL (Negative) 04/30/21 17:45 Urine Blood Mod (Negative) 04/30/21 17:45 Urine Nitrite Neg (Negative) 04/30/21 17:45 Urine Bilirubin Neg (Negative) 04/30/21 17:45 Urine Urobilinogen < 2.0 mg/dL (<2.0) 04/30/21 17:45 Ur Leukocyte Esterase Mod (Negative) 04/30/21 17:45 Urine WBC (Auto) 48.0 /HPF (0.0-6.0) H 04/30/21 17:45 Urine RBC (Auto) 103.0 /HPF (0.0-6.0) 04/30/21 17:45 U Epithel Cells (Auto) < 1.0 /HPF (0-13.0) 04/16/21 00:09 Urine Bacteria (Auto) 1+ /HPF (Negative) 04/16/21 00:09 Urine Mucus Few /HPF 04/30/21 17:45 Urine Yeast (Budding) 3+ /HPF 04/30/21 17:45 Urine Creatinine 24.4 mg/dL (0.1-20.0) H 04/16/21 00:12 Urine Sodium 97 mmol/L 04/16/21 00:12 Random Vancomycin 15.5 ug/mL (0-40.0) 04/27/21 07:52 Salicylates 4.1 mg/dL (2.8-20.0) 04/15/21 17:20 Acetaminophen 5.0 ug/mL (10.0-30.0) L 04/15/21 17:20 Plasma/Serum Alcohol 0.02 % (0-0.07) 04/15/21 17:20 Coronavirus (PCR) Negative (Negative) 04/16/21 Unknown Blood Type B POSITIVE 05/14/21 19:00 Antibody Screen Negative 05/14/21 19:00 Crossmatch See Detail 05/14/21 19:00 Kerr/IV: Voiding Method External Female Catheter Active Medications - Current Medications Current Medications: Generic Name Dose Route Start Last Admin Trade Name Freq PRN Reason Stop Dose Admin Acetaminophen 650 mg 04/15/21 19:11 05/17/21 12:33 Acetaminophen 325 Mg Tab PO 650 mg Q6H PRN Administration Pain MILD(1-3)/Fever >100.5/SEXTON Albuterol 2.5 mg 05/09/21 13:16 05/16/21 09:40 Albuterol 2.5 Mg/3 Ml Nebu IH 2.5 mg Q6HRT PRN Administration Shortness Of Breath Amlodipine Besylate 10 mg 04/25/21 10:00 05/17/21 10:00 Amlodipine 10 Mg Tab PO Not Given DAILY WOLFGANG Amlodipine Besylate 2.5 mg 05/18/21 10:00 Amlodipine 5 Mg Tab PO QDAY WOLFGANG Lipase/Protease/Amylase 1 each 04/16/21 12:52 Lipase 10,500/Protease 25,000/Amylase 43,750 (Units) Dr Simpson FEEDTUBE PRN PRN For Clogged Feeding Tube Aspirin 81 mg 04/25/21 10:00 05/17/21 09:33 Aspirin 81 Mg Tab Chew PO 81 mg QDAY WOLFGANG Administration Bisacodyl 10 mg 04/17/21 11:01 05/03/21 09:50 Bisacodyl 10 Mg Rect Supp AL 10 mg QDAY PRN Administration Constipation Brimonidine Tartrate 1 drops 04/17/21 22:00 05/17/21 09:31 Brimonidine 0.15% Ophth Soln OU 1 drops BID [facility] Administration Docusate Sodium 100 mg 04/29/21 15:00 05/17/21 09:33 Docusate Sodium 100 Mg/10 Ml Oral Liqd PO 100 mg BID [facility] Administration Famotidine 20 mg 04/17/21 10:00 05/17/21 09:34 Famotidine 20 Mg Tab PO 20 mg DAILY [facility] Administration Fentanyl 50 mcg 05/13/21 09:30 Fentanyl 100 Mcg/2 Ml Inj IV Q10MIN PRN ANALGESIA Glycopyrrolate 1 mg 05/17/21 20:00 Glycopyrrolate 1 Mg Tab PO TID [facility] Heparin Sodium (Porcine) 5,000 unit 04/15/21 22:00 05/17/21 09:34 Heparin 5,000 Unit/1 Ml Vial SUB-Q 5,000 unit Q12HR [facility] Administration Hydralazine HCl 10 mg 04/16/21 18:00 05/17/21 03:32 Hydralazine 20 Mg/1 Ml Inj IV 10 mg Q4HR PRN Administration Hypertension Hydrophilic Ointment 1 applic 04/15/21 17:24 Lip Therapy Vaseline TP Q2HR PRN Dry Lips Fentanyl Citrate 2,000 mcg in 100 mls @ 4.65 mls/hr 05/13/21 10:00 Fentanyl Drip Premix IV TITR [facility] Protocol 1 MCG/KG/HR Sodium Chloride 1,000 mls @ 75 mls/hr 05/17/21 15:00 05/17/21 15:15 Nacl 0.9% 1000 Ml IV 05/19/21 04:19 75 mls/hr DIRECT [facility] Administration Insulin Human Isoph/Insulin Regular 25 unit 05/09/21 08:00 05/17/21 08:26 Insulin Nph/Regular 70/30 Inj SUB-Q 25 unit BIDDIAB [facility] Administration Insulin Human Lispro 0 unit 04/16/21 15:00 05/17/21 12:23 Insulin Lispro 100 Unit/Ml SUB-Q 3 unit Q6HR [facility] Administration Protocol Latanoprost 1 drops 04/17/21 18:00 05/16/21 17:46 Latanoprost 0.005% Ophth Soln 2.5 Ml OU 1 drops QPM [facility] Administration Levothyroxine Sodium 25 mcg 04/19/21 06:00 05/17/21 05:40 Levothyroxine 25 Mcg Tab PO 25 mcg DAILY@0600 [facility] Administration Lorazepam 2 mg 05/13/21 09:30 Lorazepam 2 Mg/Ml Vial IV Q4H PRN Agitation Midodrine 10 mg 05/17/21 16:00 05/17/21 16:39 Midodrine 5 Mg Tab PO Not Given TID@0800,1200,1600 [facility] Multi-Ingred Cream/Lotion/Oil/Oint 1 applic 04/15/21 17:24 05/16/21 10:04 Mineral Oil/Petrolatum, White Ophth Oint 3.5 Gm OU 1 applic Q4HR PRN Administration Dry Eye(s) Pravastatin Sodium 20 mg 04/19/21 22:00 05/16/21 21:57 Pravastatin 20 Mg Tab PO 20 mg QHS [facility] Administration Scopolamine 1 each 04/20/21 18:00 05/17/21 09:33 Scopolamine Transdermal Patch 72 Hr TD 1 each Q3D [facility] Administration Simple Syrup 15 ml 04/16/21 12:52 Simple Syrup 15 Ml FEEDTUBE PRN PRN Hypoglycemia Simple Syrup 30 ml 04/16/21 12:52 Simple Syrup 15 Ml FEEDTUBE PRN PRN Hypoglycemia Sodium Bicarbonate 325 mg 04/16/21 12:52 Sodium Bicarbonate 325 Mg Tab FEEDTUBE PRN PRN For Clogged Feeding Tube Sodium Chloride 10 ml 04/15/21 22:00 05/17/21 09:32 Sodium Chloride 0.9% 10 Ml Flush Syringe IV 10 ml BID [facility] Administration Sodium Chloride 10 ml 04/15/21 19:11 04/24/21 05:27 Sodium Chloride 0.9% 10 Ml Flush Syringe IV 10 ml PRN PRN Administration LINE FLUSH Tamsulosin HCl 0.4 mg 04/25/21 14:00 05/17/21 09:33 Tamsulosin 0.4 Mg Cap PO 0.4 mg QDAY [facility] Administration Timolol Maleate 1 drops 04/19/21 10:00 05/17/21 09:32 Timolol 0.5% Ophth Soln 5 Ml OU 1 drops QDAY [facility] Administration Nutrition/Malnutrition Assess - Dietary Evaluation Nutrition/Malnutrition Findings: Nutrition Notes Start: 04/16/21 12:31 Freq: Status: Active Protocol: Document 05/16/21 09:23 (Rec: 05/16/21 09:27 [id number]) Nutrition Notes Initial or Follow up Reassessment Current Diagnosis Acute Kidney Injury,Coronary Artery Disease,Diabetes, Hypertension Other Pertinent Diagnosis UTI, acute metabolic encephalopathy Current Diet TF - Glucerna 1.2 at 50ml/hr Labs/Tests K 5.4 BUN 39 Cr 2 Pertinent Medications Kionex Height 5 ft 6 in Weight 93 kg [place] Body Weight (kg) 59.09 BMI 33.0 Weight Status Obese Subjective/Other Information FU for TF tolerance. BUN and Cr improved, however, pt continues to have hyperkalemia . Will change to low K formula . Unable to obtain new wt. Percent of energy/protein needs met: 100% energy 95% pro Burn Absent Trauma Absent Difficulty In Swallowing Current % PO Negligible Minimum of two criteria No physical signs of malnutrition #1 Nutrition Diagnosis Inadequate oral intake Diagnosis Progress(for reassessment Continues documentation) Is patient on ventilator? No Is Patient Ambulatory and/or Out of Bed No REE-([facility]-confined [facility] bed) 1694.856 Kcal/Kg value to use for calculation 15 Approximate Energy Requirements Using 1395 kcal/Kg Calculation Used for Recommendations Kcal/kg Additional Notes Pro needs 1-1.2g/kg AdjBW: 76kg (76-91g) Fluid needs 1ml/kcal Nutrition Intervention Change Diet Order: Change TF Nutrition Support: Nepro 1.8 at 35 ml/hr Flush 150 ml q4h Kcal 1,512 Protein (gm) 68 Fluid (mL) 611 Goal #1 Start and tolerate new TF Goal #2 TF to need needs as best as possible Anticipated Discharge Needs: unable to determine at this time Follow-Up By: 05/18/21 Additional Comments FU for new TF <BRISSA NGUYEN - Last Filed: 05/17/21 17:57> Assessment and Plan Assessment and plan: Patient seen and examined, agree with assessment and plan as outlined by nurse bishnu jones. Spoke with case management, patient has been denied LTAC, however patient's has been accepted at SNF. I spoke with the nephew at length pertaining to the patient's prognosis. Patient will be transferred to the floor, physical therapy will reevaluate the patient to see what skills she is able to do. Hospitalist Physical - Constitutional Vitals: Temp Pulse Resp BP Pulse Ox 98.7 F 76 19 131/54 99 05/17/21 16:00 05/17/21 17:30 05/17/21 17:30 05/17/21 17:30 05/17/21 17:30 HEART Score - HEART Score Troponin: Troponin T 0.065 ng/mL (0.00-0.029) H 04/20/21 03:32 Results - Labs CBC & Chem 7: 05/17/21 07:43 05/17/21 07:43 Labs: Laboratory Last Values WBC 10.0 K/mm3 (4.5-11.0) 05/17/21 07:43 RBC 2.83 M/mm3 (3.65-5.03) L 05/17/21 07:43 Hgb 8.6 gm/dl (10.1-14.3) L 05/17/21 07:43 Hct 26.8 % (30.3-42.9) L 05/17/21 07:43 MCV 95 fl (79-97) 05/17/21 07:43 MCH 30 pg (28-32) 05/17/21 07:43 MCHC 32 % (30-34) 05/17/21 07:43 RDW 16.2 % (13.2-15.2) H 05/17/21 07:43 Plt Count 290 K/mm3 (140-440) 05/17/21 07:43 Lymph % (Auto) 21.1 % (13.4-35.0) 05/15/21 05:51 [place] % (Auto) 15.3 % (0.0-7.3) H 05/15/21 05:51 Eos % (Auto) 2.9 % (0.0-4.3) 05/15/21 05:51 Baso % (Auto) 0.4 % (0.0-1.8) 05/15/21 05:51 Lymph # (Auto) 1.5 K/mm3 (1.2-5.4) 05/15/21 05:51 [place] # (Auto) 1.1 K/mm3 (0.0-0.8) H 05/15/21 05:51 Eos # (Auto) 0.2 K/mm3 (0.0-0.4) 05/15/21 05:51 Baso # (Auto) 0.0 K/mm3 (0.0-0.1) 05/15/21 05:51 Add Manual Diff Complete 05/01/21 07:11 Total Counted 100 05/01/21 07:11 Seg Neutrophils % 60.3 % (40.0-70.0) 05/15/21 05:51 Seg Neuts % (Manual) 80.0 % (40.0-70.0) H 05/01/21 07:11 Band Neutrophils % 7.0 % 05/01/21 07:11 Lymphocytes % (Manual) 5.0 % (13.4-35.0) L 05/01/21 07:11 Monocytes % (Manual) 6.0 % (0.0-7.3) 05/01/21 07:11 Eosinophils % (Manual) 1.0 % (0.0-4.3) 05/01/21 07:11 Metamyelocytes % 1.0 % 05/01/21 07:11 Nucleated RBC % Not Reportable 05/01/21 07:11 Seg Neutrophils # 4.3 K/mm3 (1.8-7.7) 05/15/21 05:51 Seg Neutrophils # Man 9.8 K/mm3 (1.8-7.7) H 05/01/21 07:11 Band Neutrophils # 0.9 K/mm3 05/01/21 07:11 Lymphocytes # (Manual) 0.6 K/mm3 (1.2-5.4) L 05/01/21 07:11 Abs React Lymphs (Man) 0.0 K/mm3 05/01/21 07:11 Monocytes # (Manual) 0.7 K/mm3 (0.0-0.8) 05/01/21 07:11 Eosinophils # (Manual) 0.1 K/mm3 (0.0-0.4) 05/01/21 07:11 Basophils # (Manual) 0.0 K/mm3 (0.0-0.1) 05/01/21 07:11 Metamyelocytes # 0.1 K/mm3 05/01/21 07:11 Myelocytes # 0.0 K/mm3 05/01/21 07:11 Promyelocytes # 0.0 K/mm3 05/01/21 07:11 Blast Cells # 0.0 K/mm3 05/01/21 07:11 WBC Morphology Not Reportable 05/01/21 07:11 Hypersegmented Neuts Not Reportable 05/01/21 07:11 Hyposegmented Neuts Not Reportable 05/01/21 07:11 Hypogranular Neuts Not Reportable 05/01/21 07:11 Smudge Cells Not Reportable 05/01/21 07:11 Toxic Granulation Not Reportable 05/01/21 07:11 Toxic Vacuolation Not Reportable 05/01/21 07:11 Dohle Bodies Not Reportable 05/01/21 07:11 Pelger-Huet Anomaly Not Reportable 05/01/21 07:11 Peterson Rods Not Reportable 05/01/21 07:11 Platelet Estimate Consistent w auto 05/01/21 07:11 Clumped Platelets Not Reportable 05/01/21 07:11 Plt Clumps, EDTA Not Reportable 05/01/21 07:11 Large Platelets Not Reportable 05/01/21 07:11 Giant Platelets Not Reportable 05/01/21 07:11 Platelet Satelliting Not Reportable 05/01/21 07:11 Plt Morphology Comment Not Reportable 05/01/21 07:11 RBC Morphology Normal 05/01/21 07:11 Dimorphic RBCs Not Reportable 05/01/21 07:11 Polychromasia Not Reportable 05/01/21 07:11 Hypochromasia Not Reportable 05/01/21 07:11 Poikilocytosis Not Reportable 05/01/21 07:11 Anisocytosis Not Reportable 05/01/21 07:11 Microcytosis Not Reportable 05/01/21 07:11 Macrocytosis Not Reportable 05/01/21 07:11 Spherocytes Not Reportable 05/01/21 07:11 Pappenheimer Bodies Not Reportable 05/01/21 07:11 Sickle Cells Not Reportable 05/01/21 07:11 Target Cells Not Reportable 05/01/21 07:11 Tear Drop Cells Not Reportable 05/01/21 07:11 Ovalocytes Not Reportable 05/01/21 07:11 Helmet Cells Not Reportable 05/01/21 07:11 Law-Lynch Bodies Not Reportable 05/01/21 07:11 Premium Rings Not Reportable 05/01/21 07:11 Theo Cells Not Reportable 05/01/21 07:11 Bite Cells Not Reportable 05/01/21 07:11 Crenated Cell Not Reportable 05/01/21 07:11 Elliptocytes Not Reportable 05/01/21 07:11 Acanthocytes (Spur) Not Reportable 05/01/21 07:11 Rouleaux Not Reportable 05/01/21 07:11 Hemoglobin C Crystals Not Reportable 05/01/21 07:11 Schistocytes Not Reportable 05/01/21 07:11 Malaria parasites Not Reportable 05/01/21 07:11 James Bodies Not Reportable 05/01/21 07:11 Hem Pathologist Commnt No 05/01/21 07:11 PT 14.8 Sec. (12.2-14.9) 05/07/21 08:20 INR 1.11 (0.87-1.13) 05/07/21 08:20 APTT 31.8 Sec. (24.2-36.6) 04/15/21 17:20 ABG pH 7.473 (7.320-7.450) H 05/15/21 22:00 POC ABG pCO2 35.5 mmHg (32.0-48.0) 05/15/21 22:00 POC ABG pO2 77.7 mmHg (83-108) L 05/15/21 22:00 POC ABG HCO3 25.4 05/15/21 22:00 ABG O2 Saturation 96.1 (0-100) 05/15/21 22:00 POC ABG Base Excess 1.8 05/15/21 22:00 ABG Hemoglobin 8.4 (12.0-17.5) L 05/15/21 22:00 ABG Oxyhemoglobin 95.0 (94-98) 05/15/21 22:00 ABG Methemoglobin 0.3 (0.0-1.5) 05/15/21 22:00 ABG Sodium 138.5 mmol/L (136.0-145.0) 05/15/21 22:00 ABG Potassium 4.7 mmol/L (3.40-4.50) H 05/15/21 22:00 ABG Chloride 105.0 mmol/L (98-107) 05/15/21 22:00 ABG Glucose 104 mg/dL (65-95) H 05/15/21 22:00 Carboxyhemoglobin 0.8 (0.5-1.5) 05/15/21 22:00 FiO2 % 28.0 05/15/21 22:00 Sodium 140 mmol/L (137-145) 05/17/21 07:43 Potassium 4.5 mmol/L (3.6-5.0) 05/17/21 07:43 Chloride 102.4 mmol/L (98-107) 05/17/21 07:43 Carbon Dioxide 27 mmol/L (22-30) 05/17/21 07:43 Anion Gap 15 mmol/L 05/17/21 07:43 BUN 39 mg/dL (7-17) H 05/17/21 07:43 Creatinine 2.1 mg/dL (0.6-1.2) H 05/17/21 07:43 Estimated GFR 27 ml/min 05/17/21 07:43 BUN/Creatinine Ratio 19 % 05/17/21 07:43 Glucose 183 mg/dL (65-100) H 05/17/21 07:43 POC Glucose 182 mg/dL (70-105) H 05/17/21 11:11 Lactic Acid 1.10 mmol/L (0.7-2.0) 04/26/21 09:30 Calcium 9.8 mg/dL (8.4-10.2) 05/17/21 07:43 Phosphorus 2.60 mg/dL (2.5-4.5) 04/22/21 08:00 Magnesium 2.10 mg/dL (1.7-2.3) 04/23/21 07:02 Total Bilirubin 0.30 mg/dL (0.1-1.2) 04/28/21 04:13 Direct Bilirubin < 0.2 mg/dL (0-0.2) 04/28/21 04:13 Indirect Bilirubin 0.1 mg/dL 04/28/21 04:13 AST 61 units/L (5-40) H 04/28/21 04:13 ALT 64 units/L (7-56) H 04/28/21 04:13 Alkaline Phosphatase 95 units/L (35-129) 04/28/21 04:13 Ammonia 46.0 umol/L (25-60) 04/15/21 17:20 Total Creatine Kinase 63 units/L (30-135) 05/17/21 07:43 CK-MB (CK-2) 9.1 ng/mL (0.0-4.0) H 04/17/21 15:35 CK-MB (CK-2) Rel Index 1.4 (0-4) 04/17/21 15:35 Troponin T 0.065 ng/mL (0.00-0.029) H 04/20/21 03:32 NT-Pro-B Natriuret Pep 697.9 pg/mL (0-900) 04/15/21 17:20 Total Protein 6.2 g/dL (6.3-8.2) L 04/28/21 04:13 Albumin 2.6 g/dL (3.9-5) L 04/28/21 04:13 Albumin/Globulin Ratio 0.7 % 04/28/21 04:13 Triglycerides 103 mg/dL (2-149) 04/17/21 05:04 Cholesterol 122 mg/dL (50-199) 04/17/21 05:04 LDL Cholesterol Direct 55 mg/dL (50-130) 04/17/21 05:04 HDL Cholesterol 61 mg/dL (40-59) H 04/17/21 05:04 Cholesterol/HDL Ratio 2.00 % 04/17/21 05:04 Procalcitonin 0.20 ng/mL (<0.15) 04/16/21 19:01 TSH 14.190 mlU/mL (0.270-4.200) H 04/15/21 17:20 Thyroxine (T4) 4.1 ug/dL (4.0-12.0) 04/16/21 19:01 Free T3 Index 1.1 pg/mL (2.3-4.2) L 04/16/21 19:01 Arterial Blood Glucose 104 mg/dL (65-95) H 05/15/21 22:00 Arterial Blood Ionized Calcium 5.1 mg/dL (4.6-5.3) 05/15/21 22:00 Urine Color Yellow (Yellow) 04/30/21 17:45 Urine Turbidity Cloudy (Clear) 04/30/21 17:45 Urine pH 5.0 (5.0-7.0) 04/30/21 17:45 Ur Specific [place] 1.016 (1.003-1.030) 04/30/21 17:45 Urine Protein 100 mg/dl mg/dL (Negative) 04/30/21 17:45 Urine Glucose (UA) Neg mg/dL (Negative) 04/30/21 17:45 Urine Ketones Neg mg/dL (Negative) 04/30/21 17:45 Urine Blood Mod (Negative) 04/30/21 17:45 Urine Nitrite Neg (Negative) 04/30/21 17:45 Urine Bilirubin Neg (Negative) 04/30/21 17:45 Urine Urobilinogen < 2.0 mg/dL (<2.0) 04/30/21 17:45 Ur Leukocyte Esterase Mod (Negative) 04/30/21 17:45 Urine WBC (Auto) 48.0 /HPF (0.0-6.0) H 04/30/21 17:45 Urine RBC (Auto) 103.0 /HPF (0.0-6.0) 04/30/21 17:45 U Epithel Cells (Auto) < 1.0 /HPF (0-13.0) 04/16/21 00:09 Urine Bacteria (Auto) 1+ /HPF (Negative) 04/16/21 00:09 Urine Mucus Few /HPF 04/30/21 17:45 Urine Yeast (Budding) 3+ /HPF 04/30/21 17:45 Urine Creatinine 24.4 mg/dL (0.1-20.0) H 04/16/21 00:12 Urine Sodium 97 mmol/L 04/16/21 00:12 Random Vancomycin 15.5 ug/mL (0-40.0) 04/27/21 07:52 Salicylates 4.1 mg/dL (2.8-20.0) 04/15/21 17:20 Acetaminophen 5.0 ug/mL (10.0-30.0) L 04/15/21 17:20 Plasma/Serum Alcohol 0.02 % (0-0.07) 04/15/21 17:20 Coronavirus (PCR) Negative (Negative) 04/16/21 Unknown Blood Type B POSITIVE 05/14/21 19:00 Antibody Screen Negative 05/14/21 19:00 Crossmatch See Detail 05/14/21 19:00 Kerr/IV: Voiding Method External Female Catheter Active Medications - Current Medications Current Medications: Generic Name Dose Route Start Last Admin Trade Name Freq PRN Reason Stop Dose Admin Acetaminophen 650 mg 04/15/21 19:11 05/17/21 12:33 Acetaminophen 325 Mg Tab PO 650 mg Q6H PRN Administration Pain MILD(1-3)/Fever >100.5/SEXTON Albuterol 2.5 mg 05/09/21 13:16 05/16/21 09:40 Albuterol 2.5 Mg/3 Ml Nebu IH 2.5 mg Q6HRT PRN Administration Shortness Of Breath Amlodipine Besylate 10 mg 04/25/21 10:00 05/17/21 10:00 Amlodipine 10 Mg Tab PO Not Given DAILY [facility] Amlodipine Besylate 2.5 mg 05/18/21 10:00 Amlodipine 5 Mg Tab PO QDAY [facility] Lipase/Protease/Amylase 1 each 04/16/21 12:52 Lipase 10,500/Protease 25,000/Amylase 43,750 (Units) Dr Simpson FEEDTUBE PRN PRN For Clogged Feeding Tube Aspirin 81 mg 04/25/21 10:00 05/17/21 09:33 Aspirin 81 Mg Tab Chew PO 81 mg QDAY [facility] Administration Bisacodyl 10 mg 04/17/21 11:01 05/03/21 09:50 Bisacodyl 10 Mg Rect Supp AL 10 mg QDAY PRN Administration Constipation Brimonidine Tartrate 1 drops 04/17/21 22:00 05/17/21 09:31 Brimonidine 0.15% Ophth Soln OU 1 drops BID [facility] Administration Docusate Sodium 100 mg 04/29/21 15:00 05/17/21 09:33 Docusate Sodium 100 Mg/10 Ml Oral Liqd PO 100 mg BID [facility] Administration Famotidine 20 mg 04/17/21 10:00 05/17/21 09:34 Famotidine 20 Mg Tab PO 20 mg DAILY [facility] Administration Fentanyl 50 mcg 05/13/21 09:30 Fentanyl 100 Mcg/2 Ml Inj IV Q10MIN PRN ANALGESIA Glycopyrrolate 1 mg 05/17/21 20:00 Glycopyrrolate 1 Mg Tab PO TID [facility] Heparin Sodium (Porcine) 5,000 unit 04/15/21 22:00 05/17/21 09:34 Heparin 5,000 Unit/1 Ml Vial SUB-Q 5,000 unit Q12HR [facility] Administration Hydralazine HCl 10 mg 04/16/21 18:00 05/17/21 03:32 Hydralazine 20 Mg/1 Ml Inj IV 10 mg Q4HR PRN Administration Hypertension Hydrophilic Ointment 1 applic 04/15/21 17:24 Lip Therapy Vaseline TP Q2HR PRN Dry Lips Fentanyl Citrate 2,000 mcg in 100 mls @ 4.65 mls/hr 05/13/21 10:00 Fentanyl Drip Premix IV TITR [facility] Protocol 1 MCG/KG/HR Sodium Chloride 1,000 mls @ 75 mls/hr 05/17/21 15:00 05/17/21 15:15 Nacl 0.9% 1000 Ml IV 05/19/21 04:19 75 mls/hr DIRECT [facility] Administration Insulin Human Isoph/Insulin Regular 25 unit 05/09/21 08:00 05/17/21 17:10 Insulin Nph/Regular 70/30 Inj SUB-Q 25 unit BIDDIAB [facility] Administration Insulin Human Lispro 0 unit 04/16/21 15:00 05/17/21 12:23 Insulin Lispro 100 Unit/Ml SUB-Q 3 unit Q6HR [facility] Administration Protocol Latanoprost 1 drops 04/17/21 18:00 05/17/21 17:48 Latanoprost 0.005% Ophth Soln 2.5 Ml OU 1 drops QPM [facility] Administration Levothyroxine Sodium 25 mcg 04/19/21 06:00 05/17/21 05:40 Levothyroxine 25 Mcg Tab PO 25 mcg DAILY@0600 [facility] Administration Lorazepam 2 mg 05/13/21 09:30 Lorazepam 2 Mg/Ml Vial IV Q4H PRN Agitation Midodrine 10 mg 05/17/21 16:00 05/17/21 16:39 Midodrine 5 Mg Tab PO Not Given TID@0800,1200,1600 [facility] Multi-Ingred Cream/Lotion/Oil/Oint 1 applic 04/15/21 17:24 05/16/21 10:04 Mineral Oil/Petrolatum, White Ophth Oint 3.5 Gm OU 1 applic Q4HR PRN Administration Dry Eye(s) Pravastatin Sodium 20 mg 04/19/21 22:00 05/16/21 21:57 Pravastatin 20 Mg Tab PO 20 mg QHS [facility] Administration Scopolamine 1 each 04/20/21 18:00 05/17/21 09:33 Scopolamine Transdermal Patch 72 Hr TD 1 each Q3D [facility] Administration Simple Syrup 15 ml 04/16/21 12:52 Simple Syrup 15 Ml FEEDTUBE PRN PRN Hypoglycemia Simple Syrup 30 ml 04/16/21 12:52 Simple Syrup 15 Ml FEEDTUBE PRN PRN Hypoglycemia Sodium Bicarbonate 325 mg 04/16/21 12:52 Sodium Bicarbonate 325 Mg Tab FEEDTUBE PRN PRN For Clogged Feeding Tube Sodium Chloride 10 ml 04/15/21 22:00 05/17/21 09:32 Sodium Chloride 0.9% 10 Ml Flush Syringe IV 10 ml BID [facility] Administration Sodium Chloride 10 ml 04/15/21 19:11 04/24/21 05:27 Sodium Chloride 0.9% 10 Ml Flush Syringe IV 10 ml PRN PRN Administration LINE FLUSH Tamsulosin HCl 0.4 mg 04/25/21 14:00 05/17/21 09:33 Tamsulosin 0.4 Mg Cap PO 0.4 mg QDAY [facility] Administration Timolol Maleate 1 drops 04/19/21 10:00 05/17/21 09:32 Timolol 0.5% Ophth Soln 5 Ml OU 1 drops QDAY [facility] Administration Nutrition/Malnutrition Assess - Dietary Evaluation Nutrition/Malnutrition Findings: Nutrition Notes Start: 04/16/21 12:31 Freq: Status: Active Protocol: Document 05/16/21 09:23 (Rec: 05/16/21 09:27 [id number]) Nutrition Notes Initial or Follow up Reassessment Current Diagnosis Acute Kidney Injury,Coronary Artery Disease,Diabetes, Hypertension Other Pertinent Diagnosis UTI, acute metabolic encephalopathy Current Diet TF - Glucerna 1.2 at 50ml/hr Labs/Tests K 5.4 BUN 39 Cr 2 Pertinent Medications Kionex Height 5 ft 6 in Weight 93 kg [place] Body Weight (kg) 59.09 BMI 33.0 Weight Status Obese Subjective/Other Information FU for TF tolerance. BUN and Cr improved, however, pt continues to have hyperkalemia . Will change to low K formula . Unable to obtain new wt. Percent of energy/protein needs met: 100% energy 95% pro Burn Absent Trauma Absent Difficulty In Swallowing Current % PO Negligible Minimum of two criteria No physical signs of malnutrition #1 Nutrition Diagnosis Inadequate oral intake Diagnosis Progress(for reassessment Continues documentation) Is patient on ventilator? No Is Patient Ambulatory and/or Out of Bed No REE-([facility]-confined to bed) 1694.856 Kcal/Kg value to use for calculation 15 Approximate Energy Requirements Using 1395 kcal/Kg Calculation Used for Recommendations Kcal/kg Additional Notes Pro needs 1-1.2g/kg AdjBW: 76kg (76-91g) Fluid needs 1ml/kcal Nutrition Intervention Change Diet Order: Change TF Nutrition Support: Nepro 1.8 at 35 ml/hr Flush 150 ml q4h Kcal 1,512 Protein (gm) 68 Fluid (mL) 611 Goal #1 Start and tolerate new TF Goal #2 TF to need needs as best as possible Anticipated Discharge Needs: unable to determine at this time Follow-Up By: 05/18/21 Additional Comments FU for new TF
[2021-05-17] MEDS: LATANOPROST 0.005% OPHTH SOLN 2.5 ML OU SCH (17:48)
[2021-05-17] MEDS: METOPROLOL TARTRATE 25 MG TAB PO SCH (19:41)
[2021-05-17] MEDS: PRAVASTATIN 20 MG TAB PO SCH (21:31)
[2021-05-17] MEDS: MINERAL OIL/PETROLATUM, WHITE OPHTH OINT 3.5 GM OU PRN (21:31)
[2021-05-17] MEDS: GLYCOPYRROLATE 1 MG TAB PO SCH (21:34)
[2021-05-18] MEDS: INSULIN LISPRO 100 UNIT/ML SUB-Q SCH ×4 (01:55→18:43)
[2021-05-18] MEDS: LEVOTHYROXINE 25 MCG TAB PO SCH (05:25)
[2021-05-18 06:02] LABS: Calcium 9.3 mg/dL (8.4-10.2)
[2021-05-18 07:04] LABS: Creatinine,Urine 104.7 mg/dL (0.1-20.0)
[2021-05-18] MEDS: SODIUM CHLORIDE 0.9% 1000 ML 1,000 ML IV SCH (08:48)
[2021-05-18] MEDS: INSULIN NPH/REGULAR 70/30 INJ SUB-Q SCH ×2 (09:00→18:42)
[2021-05-18] MEDS: MIDODRINE 5 MG TAB PO SCH ×3 (09:20→18:43)
[2021-05-18] MEDS: ASPIRIN 81 MG TAB CHEW PO SCH (10:04)
[2021-05-18] MEDS: DOCUSATE SODIUM 100 MG/10 ML ORAL LIQD PO SCH ×2 (10:04→21:14)
[2021-05-18] MEDS: amLODIPine 5 MG TAB PO SCH (10:05)
[2021-05-18] MEDS: FAMOTIDINE 20 MG TAB PO SCH (10:05)
[2021-05-18] MEDS: TAMSULOSIN 0.4 MG CAP PO SCH (10:05)
[2021-05-18] MEDS: TIMOLOL 0.5% OPHTH SOLN 5 ML OU SCH (10:06)
[2021-05-18] MEDS: HEPARIN 5,000 UNIT/1 ML VIAL SUB-Q SCH ×2 (10:06→21:15)
[2021-05-18] MEDS: BRIMONIDINE 0.15% OPHTH SOLN OU SCH ×2 (10:07→21:14)
[2021-05-18] MEDS: GLYCOPYRROLATE 1 MG TAB PO SCH ×3 (11:48→21:13)
--- NOTE | 2021-05-18 12:02 | Progress Note ---
Assessment and Plan Assessment and plan: This is a 80-year-old female with HTN, DM, [place], breast CA s/p double mastectomy, TIA who presented with hypoglycemia, AMS who was admitted with SIRS, symptomatic bradycardia, acute metabolic encephalopathy, acute hypoxic respiratory failure, elevated TSH, hyperglycemia, hyponatremia, hypokalemia, ROJELIO and rhabdomyolysis Acute metabolic encephalopathy-persist Acute hypoxic respiratory failure (extubated 04/20)- Re-intubated secondary to Stridor and paradoxical breathing - s/p trach and PEG First-degree heart block Resolved ileus versus mechanical obstruction Acute kidney injury with vasomotor nephropathy UTI, Pseudomonas/ Earline Elevated TSH Mild rhabdomyolysis Hypertension Diabetes mellitus with hyperglycemia on admission CAD Hypothyroidism Chronic illness debilitymyopathy Obesity Debility -[facility], nephrology, neurology, cardiology consulted, patient recommendations -S/p D10 and D5W gtt, on TF -S/p IV calcium gluconate, regular insulin, D50 -S/p transcutaneous pacing, intermittent demand pacer in place -Renal ultrasound findings consistent with acute on chronic kidney disease, mildly complex right renal cyst -Blood pressure monitoring per protocol -Accu-Cheks every 6, SSI, long acting insulin -IV hydralazine as needed -midodrine -04/25 EEG is mildly abnormal with mild slowing noted throughout the recording, suggestive of mild cortical dysfunction and/or drug effect -04/20 EEG shows mildly abnormal record due to diffuse background slowing noted throughout the recording, intermittent motion artifact, patient intubated and sedated at time of study, no sign of seizures as well epilepticus noted, possible toxic metabolic encephalopathy, drug effect, possible postictal state cannot be totally excluded. -Avoid ACEi/ARB in setting of ROJELIO -Avoid AV arron blocking agents -Avoid nephrotoxic agents and renally dose medications -BB, hydralazine, amlodipine -TSH 14.1, T4 4.1, T3 1.1-started on levothyroxine -As needed racemic epinephrine -S/p steroids -s/p Antibiotic therapy -Trend CBC, BMP as needed PT/OT/ST to evaluate the patient DVT/GI prophylaxis: Heparin subcu, PPI, SCDs to bilateral lower extremities while in bed Disposition: Patient will need physical therapy evaluation, [facility] has accepted the patient, however it is undetermined if the patient is able to par ticipate in any physical therapy at this time. History Interval history: 04/16: Neurology consulted, COVID-19 PCR negative, D10 drip decreased and eventually discontinued by [facility] and started on D5W for 1 L. Hydralazine as needed. Patient had hyper kalemia today and was treated with D50, insulin and Kayexalate. This time examination patient is on assist control tidal volume 450, rate of 16, PEEP of 6 and 25% FiO2. 04/17: Patient started on low-dose beta-angel per cardiology, CPAP trial again per CCM, BUN/creatinine holding steady and hypochloremia/hyponatremia slightly improved and hypokalemia has resolved. This morning a KUB was obtained which w as concerning for ileus versus mechanical obstruction and surgery was consulted. Patient was made n.p.o. and NG tube placed to wall suction. Patient was given suppository. Per RN patient did not have a BM even though she was given Kayexalate yesterday. Will obtain a KUB in the a.m. Neurology was consulted yesterday and will await further recommendations. Nephew updated at bedside today, Carlos Romero. 04/18: Neurology has ordered EEG/MRI B, [facility] continues to wean MV. Persistent low grade temperature so we will obtain BCx2/UA. Patient has improving leukocytosis, hyponatremia, renal function studies and hypochloremia. She has hypokalemia today which is being repleted. Surgery has signed off today and has okayed resumption of TF. [facility] will trial CPAP for longer today and plans to attempt extubation in AM. Family has requested transfer to [place] and Dr. Gordon will attempt to contact transfer center. I updated her nephew, Carlos Romero over the phone today abouyt current events and update on transfer ([place] will conduct a utilization review) 04/19: This morning patient is on CPAP trial at the time of examination, noted to be hypertensive and metoprolol increased to home dose, started on synthroid by [facility], lantus started re hyperglycemia, MRI completed with no acute findings. Se brigette hypokalemia (repleted and Mg pending). [facility] will contact CPAP trial again today with possible trial extubation tomorrow. 04/20: Patient's leukocytosis and kidney function tests continue to improve. Patient is hypertensive overnight we will restart home hydralazine. [facility] plans to extubate patient today. Family is attempting to transfer to another facility. EEG pending, RT will atmept to contact counter intelligence technician. Urine culture grew gram negative rods. Increase in lantus 04/21: Increase in Lantus, repleted phos. Patient has started this afternoon and was given racemic epinephrine and started on steroids. Patient will have BiPAP as needed. We will recheck BMP in the a.m. renal function studies continues to decrease. Patient has been hypertensive on evaluation regimen has been changed. 04/22: Lantus increased for hyperglycemia and add amlodipine for better BP control. Patient is on steroids. OT suctioned by RN with catheter in oral care kit and received copious amounts of secretions. Cr continues to decrease. Culture grew Pseudomonas and was changed in accordance to sensitivity. Kerr removed today after clearance from nephrology. 04/23: MRI of the brain was done and unremarkable. Will obtain reconsult to nephrology for further assistance as patient remains in profound encephalopathy despite improvement of blood sugar. Will repeat chest x-ray as patient does have significant congestion physical exam. Tube feeds still ongoing. Continue aspiration precautions. Continue antibiotics when completed for Pseudomonas management 04/24: Neurology input noted, patient unfortunately with no improvement mental status milton, continues with congestion, will defer with Branch Manager Trainee for lasix in the setting of renal failure. will give kayexlate for hyperkalemia, still moans and groans mittens in place. 04/25: Patient currently intubated, on restraints for safety, Profund encepha lopathy persist, although awake she is not following any commands, Call placed to [place] to see if they will accept transfer for ENT evaluation, while CT neck was negative, it was degraded by motion and unable to determent why patient had this stridor, Racemic Epinephrine was given, [place] is on ICU saturation, but will call back with an ENT to discuss case. Renal function mildly worse, continue to monitor. Per cardiology, no further arrhythmias noted since admission. Given short duration of atrial fibrillation, along with pt's age, renal fxn, and other co- morbidities,...will resume additional medical therapies for underlying severe multi-vessel CAD (bASA & Plavix). Pt has previously declined intervention of known lesions as per her Primary Supervisor Wrapping Room. 04/26: Now with febrile illness, ?developing infection, start on empiric abx, check lactate level, blood cultures, continue management per Quiller Hand, Monitor leukocytosis, agree with Trach, family updated about denials in transfer request from outside hospitals. 04/27: WBC improving some, still with fever despite antibotics, ID consulted. CXR clear, continue current management, Trach will be planned if ok with family. Blood sugar remains elevated, will adjust insulin LANTUS to 40 units. Patient had previously completed Cefepime. Mental status remains unchanged, still moves upper ext. continue restraints 04/28: Continue supportive care. No new fever noted. Critical care physician will determine if patient should be have a trial of extubation again or if we should proceed straight to trach. Again continue to monitor mental status for complete improvement. 04/29: Per Quiller Hand discussion with family, will proceed to Tracheostomy, Patients mental status still fluctuating, Continue current management. Surgeon consulted. 04/30: General surgery consulted for trach, continue to trend CBC and BMP. Kidney function slightly worsened today. Increase in Lantus. Tmax 100.2, per ID will consider imaging if leukocytosis remains elevated with fevers. Plavix held for possible tracheostomy next week. 05/01: Patient fever curve is trending down with improving leukocytosis. Patient renal function worsened today. She remains hyperglycemic and her Lantus was increased to her home dose of Novolin 70/30. Patient was rate controlled yesterday due to T-max of 101. She remains on CMV tidal volume 450, rate of 10, PEEP of 6 and 30% FiO2. We will increase the water flushes given slight hypernatremia. Dr. Andrea updated nephew (Carlos) at bedside. CPAP trails. 05/02: Patient's hypernatremia and hyperchloremia slightly worsened and femur fractures were increased. Kidney functions remain the same however BUN is in the 100s. Nephrology is following. Kerr catheter was removed. Awaiting trach placement with possibility on Friday. 05/03: Patient grew Earline in her urine culture however per ID and the Kerr was already exchanged. Patient is on cefepime and Flagyl. Plavix still on hold awaiting trach. [facility] started the patient on half-normal saline at 75 mL/h for 2 L related to azatoma and hypernatremia. Patient mental status continues to wax and wane. Creatinine is 3.1 today from 3.4 yesterday. Patient had a bowel movement today. Patient remains hyperglycemic and Lantus was changed from a.m. to p.m.. 05/04: Patient's renal function is improving, surgery obtain consent for trach/PEG scheduled for 05/07, antibiotics to end tomorrow. We will obtain BMP in the a.m. Lantus dosage change from AC to at bedtime in hopes of better glycemic control. 05/05: Patient Lantus dose is changed to twice daily in hopes of better glycemic control. Awaiting surgical procedure hopefully on Friday. Patient's BUN/cr eatinine improved and hypernatremia has resolved. 05/06: Patient has slight hypernatremia and hyperchloremia and improvement to BUN/creatinine. Better glycemic control. Awaiting trach on Friday. NGT was displaced but now replaced and TF resumed. 05/07 This is a 80-year-old female with HTN, DM, [place], breast CA s/p double mastectomy, TIA who presented with hypoglycemia, AMS who was admitted with SIRS, symptomatic bradycardia, acute metabolic encephalopathy, acute hypoxic respiratory failure, elevated TSH, hyperglycemia, hyponatremia, hypokalemia, ROJELIO and rhabdomyolysis. She is for Trach and PEG today. 05/08: s/p trach and PEG placement yesterday. cont to monitor, wean off from vent as tolertaed 05/09: Patient started on tube feeding and tolerating well. Currently on CPAP setting with newly placed trach. Discussed with case management and patient would need placement. Continue supportive care and follow clinically. 05/10: Continue supportive care, patient is tolerating tube feeding diet. Remains on CPAP with trach. Pending LTAC placement. 05/11: Continue supportive care, patient is tolerating tube feeding diet. Remains on CPAP with trach. Plan to wean off from Vent as tolerates and to place on t-piece. 05/12; Patient placed on t-piece today, tolerating TF, cont to monitor clini justin. follow CBC/BMP 05/13: Remains on t-piece, plan to wean off to wall T-piece. If unable to wean off from vent then patient will need criteria for LTAC upon her insurance requirement. If she tolerates weaning trial and able to maintain T-piece then she will be discharged back to skilled nursing. Ordered for a.m. labs. Continue to follow clinically with supportive care. 05/14: Pending placement. Patient back on Mechanical ventilation today with trach tube. Hemoglobin 7.0. Will transfuse 1 unit packed RBC. Continue to monitor clinically. 05/15: Pending placement, [facility] continues to trial patient on trach collar for as long as tolerated. Patient is H/H improved to 8/24.6 after 1 unit PRBC. Renal function continues to fluctuate and is currently at CR 2/BUN 42. Patient is slightly hyperkalemic today at 5.3 and received 30 g of Kionex. We will obtain a.m. BMP and continue to trend CBC. Patient is hypertensive and hydralazine dose has been increased. 05/16: Patient noted to have hyperkalemia again today and was treated. Patient continued T-piece on 20% FiO2 for over 24 hours. This afternoon patient was noted to be off of trach collar and SPO2 was still in the mid 90s. Trach collar was replaced. We will remove Kerr catheter and BladderScan the patient every 4 hours. 05/17: Patient has been started on midodrine and given approximately 750 ML IV fluid bolus in response to hypotension. Will receive normal saline at 75 for another 2 L. Has a standing order for bladder scans every 4 and straight cath if needed. Patient will be transferred to telemetry today. 05/18: Patient is on the floor, patient is shaking her head to answering questions and moving her legs. Patient is lethargic at times. Hospitalist Physical - Physical exam Narrative exam: General appearance: no acute distress, well-nourished EENT: PERRL, EOM intact, hearing intact, dry oral mucosa Neck: Tracheostomy with trach tube, connected to vent Respiratory: Connected to vent via tracheostomy tube, no rales rhonchi heard Cardiovascular: Regular rate/rhythm, Normal S1 & S2. No gallop, rub Extremities: Hands in mittens, no ischemia, No edema, normal temperature, normal color, Full ROM Abdominal: PEG tube, soft, no tenderness, non-distended, normal bowel sounds Integumentary: Present: clear, warm, dry no wounds, no erythema noted Neurologic: CNII-XII intact, patient is minimally moving her legs and arms - Constitutional Vitals: Temp Pulse Resp BP Pulse Ox 97.8 F 78 18 136/56 100 05/18/21 08:09 05/18/21 08:09 05/18/21 08:09 05/18/21 08:09 05/18/21 10:15 General appearance: Present: no acute distress, other (intubated, on mechanical ventilation) HEART Score - HEART Score Troponin: Troponin T 0.065 ng/mL (0.00-0.029) H 04/20/21 03:32 Results - Labs CBC & Chem 7: 05/17/21 07:43 05/18/21 05:21 Labs: Laboratory Last Values WBC 10.0 K/mm3 (4.5-11.0) 05/17/21 07:43 RBC 2.83 M/mm3 (3.65-5.03) L 05/17/21 07:43 Hgb 8.6 gm/dl (10.1-14.3) L 05/17/21 07:43 Hct 26.8 % (30.3-42.9) L 05/17/21 07:43 MCV 95 fl (79-97) 05/17/21 07:43 MCH 30 pg (28-32) 05/17/21 07:43 MCHC 32 % (30-34) 05/17/21 07:43 RDW 16.2 % (13.2-15.2) H 05/17/21 07:43 Plt Count 290 K/mm3 (140-440) 05/17/21 07:43 Lymph % (Auto) 21.1 % (13.4-35.0) 05/15/21 05:51 [place] % (Auto) 15.3 % (0.0-7.3) H 05/15/21 05:51 Eos % (Auto) 2.9 % (0.0-4.3) 05/15/21 05:51 Baso % (Auto) 0.4 % (0.0-1.8) 05/15/21 05:51 Lymph # (Auto) 1.5 K/mm3 (1.2-5.4) 05/15/21 05:51 [place]ie # (Auto) 1.1 K/mm3 (0.0-0.8) H 05/15/21 05:51 Eos # (Auto) 0.2 K/mm3 (0.0-0.4) 05/15/21 05:51 Baso # (Auto) 0.0 K/mm3 (0.0-0.1) 05/15/21 05:51 Add Manual Diff Complete 05/01/21 07:11 Total Counted 100 05/01/21 07:11 Seg Neutrophils % 60.3 % (40.0-70.0) 05/15/21 05:51 Seg Neuts % (Manual) 80.0 % (40.0-70.0) H 05/01/21 07:11 Band Neutrophils % 7.0 % 05/01/21 07:11 Lymphocytes % (Manual) 5.0 % (13.4-35.0) L 05/01/21 07:11 Monocytes % (Manual) 6.0 % (0.0-7.3) 05/01/21 07:11 Eosinophils % (Manual) 1.0 % (0.0-4.3) 05/01/21 07:11 Metamyelocytes % 1.0 % 05/01/21 07:11 Nucleated RBC % Not Reportable 05/01/21 07:11 Seg Neutrophils # 4.3 K/mm3 (1.8-7.7) 05/15/21 05:51 Seg Neutrophils # Man 9.8 K/mm3 (1.8-7.7) H 05/01/21 07:11 Band Neutrophils # 0.9 K/mm3 05/01/21 07:11 Lymphocytes # (Manual) 0.6 K/mm3 (1.2-5.4) L 05/01/21 07:11 Abs React Lymphs (Man) 0.0 K/mm3 05/01/21 07:11 Monocytes # (Manual) 0.7 K/mm3 (0.0-0.8) 05/01/21 07:11 Eosinophils # (Manual) 0.1 K/mm3 (0.0-0.4) 05/01/21 07:11 Basophils # (Manual) 0.0 K/mm3 (0.0-0.1) 05/01/21 07:11 Metamyelocytes # 0.1 K/mm3 05/01/21 07:11 Myelocytes # 0.0 K/mm3 05/01/21 07:11 Promyelocytes # 0.0 K/mm3 05/01/21 07:11 Blast Cells # 0.0 K/mm3 05/01/21 07:11 WBC Morphology Not Reportable 05/01/21 07:11 Hypersegmented Neuts Not Reportable 05/01/21 07:11 Hyposegmented Neuts Not Reportable 05/01/21 07:11 Hypogranular Neuts Not Reportable 05/01/21 07:11 Smudge Cells Not Reportable 05/01/21 07:11 Toxic Granulation Not Reportable 05/01/21 07:11 Toxic Vacuolation Not Reportable 05/01/21 07:11 Dohle Bodies Not Reportable 05/01/21 07:11 Pelger-Huet Anomaly Not Reportable 05/01/21 07:11 Peterson Rods Not Reportable 05/01/21 07:11 Platelet Estimate Consistent w auto 05/01/21 07:11 Clumped Platelets Not Reportable 05/01/21 07:11 Plt Clumps, EDTA Not Reportable 05/01/21 07:11 Large Platelets Not Reportable 05/01/21 07:11 Giant Platelets Not Reportable 05/01/21 07:11 Platelet Satelliting Not Reportable 05/01/21 07:11 Plt Morphology Comment Not Reportable 05/01/21 07:11 RBC Morphology Normal 05/01/21 07:11 Dimorphic RBCs Not Reportable 05/01/21 07:11 Polychromasia Not Reportable 05/01/21 07:11 Hypochromasia Not Reportable 05/01/21 07:11 Poikilocytosis Not Reportable 05/01/21 07:11 Anisocytosis Not Reportable 05/01/21 07:11 Microcytosis Not Reportable 05/01/21 07:11 Macrocytosis Not Reportable 05/01/21 07:11 Spherocytes Not Reportable 05/01/21 07:11 Pappenheimer Bodies Not Reportable 05/01/21 07:11 Sickle Cells Not Reportable 05/01/21 07:11 Target Cells Not Reportable 05/01/21 07:11 Tear Drop Cells Not Reportable 05/01/21 07:11 Ovalocytes Not Reportable 05/01/21 07:11 Helmet Cells Not Reportable 05/01/21 07:11 [place] Bodies Not Reportable 05/01/21 07:11 [place] Rings Not Reportable 05/01/21 07:11 Theo Cells Not Reportable 05/01/21 07:11 Bite Cells Not Reportable 05/01/21 07:11 Crenated Cell Not Reportable 05/01/21 07:11 Elliptocytes Not Reportable 05/01/21 07:11 Acanthocytes (Spur) Not Reportable 05/01/21 07:11 Rouleaux Not Reportable 05/01/21 07:11 Hemoglobin C Crystals Not Reportable 05/01/21 07:11 Schistocytes Not Reportable 05/01/21 07:11 Malaria parasites Not Reportable 05/01/21 07:11 James Bodies Not Reportable 05/01/21 07:11 Hem Pathologist Commnt No 05/01/21 07:11 PT 14.8 Sec. (12.2-14.9) 05/07/21 08:20 INR 1.11 (0.87-1.13) 05/07/21 08:20 APTT 31.8 Sec. (24.2-36.6) 04/15/21 17:20 ABG pH 7.417 (7.320-7.450) 05/17/21 21:04 POC ABG pCO2 41.2 mmHg (32.0-48.0) 05/17/21 21:04 POC ABG pO2 88.3 mmHg (83-108) 05/17/21 21:04 POC ABG HCO3 25.9 05/17/21 21:04 ABG O2 Saturation 97.0 (0-100) 05/17/21 21:04 POC ABG Base Excess 1.3 05/17/21 21:04 ABG Hemoglobin 9.2 (12.0-17.5) L 05/17/21 21:04 ABG Oxyhemoglobin 96.1 (94-98) 05/17/21 21:04 ABG Methemoglobin 0.3 (0.0-1.5) 05/17/21 21:04 ABG Sodium 136.3 mmol/L (136.0-145.0) 05/17/21 21:04 ABG Potassium 3.7 mmol/L (3.40-4.50) 05/17/21 21:04 ABG Chloride 104.0 mmol/L (98-107) 05/17/21 21:04 ABG Glucose 160 mg/dL (65-95) H 05/17/21 21:04 Carboxyhemoglobin 0.6 (0.5-1.5) 05/17/21 21:04 FiO2 % 28.0 05/17/21 21:04 Sodium 140 mmol/L (137-145) 05/18/21 05:21 Potassium 4.1 mmol/L (3.6-5.0) 05/18/21 05:21 Chloride 105.3 mmol/L (98-107) 05/18/21 05:21 Carbon Dioxide 24 mmol/L (22-30) 05/18/21 05:21 Anion Gap 15 mmol/L 05/18/21 05:21 BUN 42 mg/dL (7-17) H 05/18/21 05:21 Creatinine 2.1 mg/dL (0.6-1.2) H 05/18/21 05:21 Estimated GFR 27 ml/min 05/18/21 05:21 BUN/Creatinine Ratio 20 % 05/18/21 05:21 Glucose 154 mg/dL (65-100) H 05/18/21 05:21 POC Glucose 163 mg/dL (70-105) H 05/18/21 06:13 Lactic Acid 1.10 mmol/L (0.7-2.0) 04/26/21 09:30 Calcium 9.3 mg/dL (8.4-10.2) 05/18/21 05:21 Phosphorus 2.60 mg/dL (2.5-4.5) 04/22/21 08:00 Magnesium 2.10 mg/dL (1.7-2.3) 04/23/21 07:02 Total Bilirubin 0.30 mg/dL (0.1-1.2) 04/28/21 04:13 Direct Bilirubin < 0.2 mg/dL (0-0.2) 04/28/21 04:13 Indirect Bilirubin 0.1 mg/dL 04/28/21 04:13 AST 61 units/L (5-40) H 04/28/21 04:13 ALT 64 units/L (7-56) H 04/28/21 04:13 Alkaline Phosphatase 95 units/L (35-129) 04/28/21 04:13 Ammonia 46.0 umol/L (25-60) 04/15/21 17:20 Total Creatine Kinase 63 units/L (30-135) 05/17/21 07:43 CK-MB (CK-2) 9.1 ng/mL (0.0-4.0) H 04/17/21 15:35 CK-MB (CK-2) Rel Index 1.4 (0-4) 04/17/21 15:35 Troponin T 0.065 ng/mL (0.00-0.029) H 04/20/21 03:32 NT-Pro-B Natriuret Pep 697.9 pg/mL (0-900) 04/15/21 17:20 Total Protein 6.2 g/dL (6.3-8.2) L 04/28/21 04:13 Albumin 2.6 g/dL (3.9-5) L 04/28/21 04:13 Albumin/Globulin Ratio 0.7 % 04/28/21 04:13 Triglycerides 103 mg/dL (2-149) 04/17/21 05:04 Cholesterol 122 mg/dL (50-199) 04/17/21 05:04 LDL Cholesterol Direct 55 mg/dL (50-130) 04/17/21 05:04 HDL Cholesterol 61 mg/dL (40-59) H 04/17/21 05:04 Cholesterol/HDL Ratio 2.00 % 04/17/21 05:04 Procalcitonin 0.20 ng/mL (<0.15) 04/16/21 19:01 TSH 14.190 mlU/mL (0.270-4.200) H 04/15/21 17:20 Thyroxine (T4) 4.1 ug/dL (4.0-12.0) 04/16/21 19:01 Free T3 Index 1.1 pg/mL (2.3-4.2) L 04/16/21 19:01 Arterial Blood Glucose 160 mg/dL (65-95) H 05/17/21 21:04 Arterial Blood Ionized Calcium 4.9 mg/dL (4.6-5.3) 05/17/21 21:04 Urine Color Yellow (Yellow) 04/30/21 17:45 Urine Turbidity Cloudy (Clear) 04/30/21 17:45 Urine pH 5.0 (5.0-7.0) 04/30/21 17:45 Ur Specific [place] 1.016 (1.003-1.030) 04/30/21 17:45 Urine Protein 100 mg/dl mg/dL (Negative) 04/30/21 17:45 Urine Glucose (UA) Neg mg/dL (Negative) 04/30/21 17:45 Urine Ketones Neg mg/dL (Negative) 04/30/21 17:45 Urine Blood Mod (Negative) 04/30/21 17:45 Urine Nitrite Neg (Negative) 04/30/21 17:45 Urine Bilirubin Neg (Negative) 04/30/21 17:45 Urine Urobilinogen < 2.0 mg/dL (<2.0) 04/30/21 17:45 Ur Leukocyte Esterase Mod (Negative) 04/30/21 17:45 Urine WBC (Auto) 48.0 /HPF (0.0-6.0) H 04/30/21 17:45 Urine RBC (Auto) 103.0 /HPF (0.0-6.0) 04/30/21 17:45 U Epithel Cells (Auto) < 1.0 /HPF (0-13.0) 04/16/21 00:09 Urine Bacteria (Auto) 1+ /HPF (Negative) 04/16/21 00:09 Urine Mucus Few /HPF 04/30/21 17:45 Urine Yeast (Budding) 3+ /HPF 04/30/21 17:45 Urine Creatinine 104.7 mg/dL (0.1-20.0) H 05/18/21 06:45 Urine Sodium 81 mmol/L 05/18/21 06:45 Random Vancomycin 15.5 ug/mL (0-40.0) 04/27/21 07:52 Salicylates 4.1 mg/dL (2.8-20.0) 04/15/21 17:20 Acetaminophen 5.0 ug/mL (10.0-30.0) L 04/15/21 17:20 Plasma/Serum Alcohol 0.02 % (0-0.07) 04/15/21 17:20 Coronavirus (PCR) Negative (Negative) 04/16/21 Unknown Blood Type B POSITIVE 05/14/21 19:00 Antibody Screen Negative 05/14/21 19:00 Crossmatch See Detail 05/14/21 19:00 Kerr/IV: Voiding Method Indwelling Catheter Active Medications - Current Medications Current Medications: Generic Name Dose Route Start Last Admin Trade Name Freq PRN Reason Stop Dose Admin Acetaminophen 650 mg 04/15/21 19:11 05/17/21 12:33 Acetaminophen 325 Mg Tab PO 650 mg Q6H PRN Administration Pain MILD(1-3)/Fever >100.5/SEXTON Albuterol 2.5 mg 05/09/21 13:16 05/16/21 09:40 Albuterol 2.5 Mg/3 Ml Nebu IH 2.5 mg Q6HRT PRN Administration Shortness Of Breath Amlodipine Besylate 2.5 mg 05/18/21 10:00 05/18/21 10:05 Amlodipine 5 Mg Tab PO 2.5 mg QDAY WOLFGANG Administration Lipase/Protease/Amylase 1 each 04/16/21 12:52 Lipase 10,500/Protease 25,000/Amylase 43,750 (Units) Dr Simpson FEEDTUBE PRN PRN For Clogged Feeding Tube Aspirin 81 mg 04/25/21 10:00 05/18/21 10:04 Aspirin 81 Mg Tab Chew PO 81 mg QDAY WOLFGANG Administration Bisacodyl 10 mg 04/17/21 11:01 05/03/21 09:50 Bisacodyl 10 Mg Rect Supp OH 10 mg QDAY PRN Administration Constipation Brimonidine Tartrate 1 drops 04/17/21 22:00 05/18/21 10:07 Brimonidine 0.15% Ophth Soln OU 1 drops BID WOLFGANG Administration Docusate Sodium 100 mg 04/29/21 15:00 05/18/21 10:04 Docusate Sodium 100 Mg/10 Ml Oral Liqd PO 100 mg BID WOLFGANG Administration Famotidine 20 mg 04/17/21 10:00 05/18/21 10:05 Famotidine 20 Mg Tab PO 20 mg DAILY WOLFGANG Administration Glycopyrrolate 1 mg 05/17/21 20:00 05/18/21 11:48 Glycopyrrolate 1 Mg Tab PO 1 mg TID WOLFGANG Administration Heparin Sodium (Porcine) 5,000 unit 04/15/21 22:00 05/18/21 10:06 Heparin 5,000 Unit/1 Ml Vial SUB-Q 5,000 unit Q12HR WOLFGANG Administration Hydralazine HCl 10 mg 04/16/21 18:00 05/17/21 03:32 Hydralazine 20 Mg/1 Ml Inj IV 10 mg Q4HR PRN Administration Hypertension Hydrophilic Ointment 1 applic 04/15/21 17:24 Lip Therapy Vaseline TP Q2HR PRN Dry Lips Sodium Chloride 1,000 mls @ 75 mls/hr 05/17/21 15:00 05/18/21 08:48 Nacl 0.9% 1000 Ml IV 05/19/21 04:19 75 mls/hr DIRECT [facility] Administration Insulin Human Isoph/Insulin Regular 25 unit 05/09/21 08:00 05/18/21 09:00 Insulin Nph/Regular 70/30 Inj SUB-Q 25 unit BIDDIAB [facility] Administration Insulin Human Lispro 0 unit 04/16/21 15:00 05/18/21 07:10 Insulin Lispro 100 Unit/Ml SUB-Q Not Given Q6HR [facility] Protocol Latanoprost 1 drops 04/17/21 18:00 05/17/21 17:48 Latanoprost 0.005% Ophth Soln 2.5 Ml OU 1 drops QPM [facility] Administration Levothyroxine Sodium 25 mcg 04/19/21 06:00 05/18/21 05:25 Levothyroxine 25 Mcg Tab PO 25 mcg DAILY@0600 [facility] Administration Lorazepam 2 mg 05/13/21 09:30 Lorazepam 2 Mg/Ml Vial IV Q4H PRN Agitation Midodrine 10 mg 05/17/21 16:00 05/18/21 09:20 Midodrine 5 Mg Tab PO 10 mg TID@0800,1200,1600 [facility] Administration Multi-Ingred Cream/Lotion/Oil/Oint 1 applic 04/15/21 17:24 05/17/21 21:31 Mineral Oil/Petrolatum, White Ophth Oint 3.5 Gm OU 1 applic Q4HR PRN Administration Dry Eye(s) Pravastatin Sodium 20 mg 04/19/21 22:00 05/17/21 21:31 Pravastatin 20 Mg Tab PO 20 mg QHS [facility] Administration Scopolamine 1 each 04/20/21 18:00 05/17/21 09:33 Scopolamine Transdermal Patch 72 Hr TD 1 each Q3D [facility] Administration Simple Syrup 15 ml 04/16/21 12:52 Simple Syrup 15 Ml FEEDTUBE PRN PRN Hypoglycemia Simple Syrup 30 ml 04/16/21 12:52 Simple Syrup 15 Ml FEEDTUBE PRN PRN Hypoglycemia Sodium Bicarbonate 325 mg 04/16/21 12:52 Sodium Bicarbonate 325 Mg Tab FEEDTUBE PRN PRN For Clogged Feeding Tube Sodium Chloride 10 ml 04/15/21 22:00 05/18/21 10:06 Sodium Chloride 0.9% 10 Ml Flush Syringe IV 10 ml BID [facility] Administration Sodium Chloride 10 ml 04/15/21 19:11 04/24/21 05:27 Sodium Chloride 0.9% 10 Ml Flush Syringe IV 10 ml PRN PRN Administration LINE FLUSH Tamsulosin HCl 0.4 mg 04/25/21 14:00 05/18/21 10:05 Tamsulosin 0.4 Mg Cap PO 0.4 mg QDAY [facility] Administration Timolol Maleate 1 drops 04/19/21 10:00 05/18/21 10:06 Timolol 0.5% Ophth Soln 5 Ml OU 1 drops QDAY [facility] Administration Nutrition/Malnutrition Assess - Dietary Evaluation Nutrition/Malnutrition Findings: Nutrition Notes Start: 04/16/21 12 :31 Freq: Status: Active Protocol: Document 05/16/21 09:23 (Rec: 05/16/21 09:27 [email or web address]) Nutrition Notes Initial or Follow up Reassessment Current Diagnosis Acute Kidney Injury,Coronary Artery Disease,Diabetes, Hypertension Other Pertinent Diagnosis UTI, acute metabolic encephalopathy Current Diet TF - Glucerna 1.2 at 50ml/hr Labs/Tests K 5.4 BUN 39 Cr 2 Pertinent Medications Kionex Height 5 ft 6 in Weight 93 kg [place] Body Weight (kg) 59.09 BMI 33.0 Weight Status Obese Subjective/Other Information FU for TF tolerance. BUN and Cr improved, however, pt continues to have hyperkalemia . Will change to low K formula . Unable to obtain new wt. Percent of energy/protein needs met: 100% energy 95% pro Burn Absent Trauma Absent Difficulty In Swallowing Current % PO Negligible Minimum of two criteria No physical signs of malnutrition #1 Nutrition Diagnosis Inadequate oral intake Diagnosis Progress(for reassessment Continues documentation) Is patient on ventilator? No Is Patient Ambulatory and/or Out of Bed No REE-([facility]-confined to bed) 1694.856 Kcal/Kg value to use for calculation 15 Approximate Energy Requirements Using 1395 kcal/Kg Calculation Used for Recommendations Kcal/kg Additional Notes Pro needs 1-1.2g/kg AdjBW: 76kg (76-91g) Fluid needs 1ml/kcal Nutrition Intervention Change Diet Order: Change TF Nutrition Support: Nepro 1.8 at 35 ml/hr Flush 150 ml q4h Kcal 1,512 Protein (gm) 68 Fluid (mL) 611 Goal #1 Start and tolerate new TF Goal #2 TF to need needs as best as possible Anticipated Discharge Needs: unable to determine at this time Follow-Up By: 05/18/21 Additional Comments FU for new TF
--- NOTE | 2021-05-18 13:03 | Progress Note ---
Assessment and Plan Acute respiratory failure, s/p mechanical ventilatory support. s/p Tracheostomy Oropharyngeal dysphagia s/p PEG Acute toxic metabolic encephalopathy ROJELIO Hyperkalemia Possible seizure activity DM II HTN CAD Obesity H/O breast cancer H/O TIA Leukocytosis Elevated serum TSH, possible hypothyroidism -trach care, airway clearance, secretion management -Continue with Midodrine, stop IVF after this current liter of Nsaline - continue to titrate supplemental oxygen to keep SpO2 89-92% - continue bronchodilators with pulmonary hygiene per RT - wean per pulmonary driven protocols otherwise - continue accuchecks with glycemic control per SSI (While critically ill target blood glucose of 140-180 mg/dL; avoid hypoglycemia) - avoid nephrotoxins, renally dose all medications - continue to avoid benzodiazepines, reduce the possibility of delirium - follow clinically off ABs; trend fevers / WBC -ABG and CXR as clinically indicated - Maintenance of sleep-wake cycle, avoid delirium - continue enteric nutritional support at goal rate as tolerated - G.I. & VTE prophylaxis - PT/OT/ROM exercises - continue mobility protocols for pressure ulcer prophylaxis - Monitor hemodynamics closely - continue other care per attending / other consultants Family at the bedside. Update patient and her family. CONDITION:FAIR PROGNOSIS: FAIR CODE STATUS: FULL CODE Subjective Date of service: 05/18/21 Principal diagnosis: Ac. resp failure; AMS; Hypoglycemia; ROJELIO; Hyperkalemia; DM II Interval history: Patient is seen today for: Acute respiratory failure s/p tracheostomy; AMS; Hypoglycemia; ROJELIO; Hyperkalemia; DM II; H/O breast cancer; Elevated serum TSH, possible hypothyroidism Seen and examined at bedside; 24hour events reviewed; nursing and respiratory care staff consulted; no adverse overnight events reported to me; resting peacefully in bed; s/p trach to ATP, tries to mouth words in response to questions. Family visiting at the bedside. No reported fevers, hypotension responded to fluid bolus,m currently on N Saline at 75ml/hour. No diarrhea , no vomiting, tolerating tube feeding Objective Vital Signs - 12hr 05/18/21 05/18/21 05/18/21 01:11 04:01 08:09 Temperature 98.0 F 97.8 F Pulse Rate 70 76 78 Respiratory 18 18 Rate Blood Pressure 133/59 136/56 O2 Sat by Pulse 100 94 Oximetry O2 Sat by Pulse Oximetry [ Assessment] 05/18/21 05/18/21 10:00 10:15 Temperature Pulse Rate Respiratory Rate Blood Pressure O2 Sat by Pulse 100 Oximetry O2 Sat by Pulse 100 Oximetry [ Assessment] Constitutional: no acute distress, alert, other (elderly obese female with mildly increased respiratory effort at rest on t-piece, thick secretions with a stron cough) Eyes: non-icteric ENT: oropharynx moist, oropharyngeal exudate pre, other (+ midline tracheostomy without bleeding stoma) Neck: supple, no lymphadenopathy, no JVD, other (large circumference) Effort: normal Ascultation: Bilateral: clear, diminished breath sounds, rales, rhonchi (scant) Percussion: Bilateral: not dull Cardiovascular: regular rate and rhythm, other (S1,S2) Gastrointestinal: normoactive bowel sounds, hypoactive bowel sounds, non-tender, non-distended (protuberant), other (PEG in place) Integumentary: normal Extremities: no cyanosis, no edema, pulses normal, no ischemia or petechiae Neurologic: non-focal exam (tracks voice), pupils equal and round, other (genera lized weakness) Psychiatric: other (falt affect) CBC and BMP: 05/17/21 07:43 05/18/21 05:21 ABG, PT/INR, D-dimer: ABG ABG pH 7.417 (7.320-7.450) 05/17/21 21:04 POC ABG pCO2 41.2 mmHg (32.0-48.0) 05/17/21 21:04 POC ABG pO2 88.3 mmHg (83-108) 05/17/21 21:04 POC ABG HCO3 25.9 05/17/21 21:04 ABG O2 Saturation 97.0 (0-100) 05/17/21 21:04 PT/INR, D-dimer PT 14.8 Sec. (12.2-14.9) 05/07/21 08:20 INR 1.11 (0.87-1.13) 05/07/21 08:20 Abnormal lab findings: Abnormal Labs 04/15/21 04/15/21 04/15/21 17:00 17:20 17:20 WBC 11.2 H RBC Hgb Hct 43.0 H MCV MCH RDW 15.3 H Plt Count Lymph % (Auto) 12.8 L [place] % (Auto) [place] # (Auto) Seg Neutrophils % 82.4 H Seg Neuts % (Manual) Lymphocytes % (Manual) Monocytes % (Manual) Seg Neutrophils # 9.3 H Seg Neutrophils # Man Lymphocytes # (Manual) Monocytes # (Manual) ABG pH POC ABG pCO2 POC ABG pO2 ABG Hemoglobin ABG Oxyhemoglobin ABG Sodium ABG Potassium ABG Chloride ABG Glucose Carboxyhemoglobin Sodium 129 L Potassium 7.1 H* Chloride 91.9 L BUN 35 H Creatinine 2.8 H Glucose POC Glucose 191 H Calcium Phosphorus Magnesium AST 69 H ALT Total Creatine Kinase CK-MB (CK-2) Troponin T Total Protein Albumin HDL Cholesterol TSH Free T3 Index Arterial Blood Glucose Arterial Blood Ionized Calcium Urine pH Urine WBC (Auto) Urine Creatinine Acetaminophen Crossmatch 04/15/21 04/15/21 04/15/21 17:20 17:20 17:20 WBC RBC Hgb Hct MCV MCH RDW Plt Count Lymph % (Auto) [place] % (Auto) [place] # (Auto) Seg Neutrophils % Seg Neuts % (Manual) Lymphocytes % (Manual) Monocytes % (Manual) Seg Neutrophils # Seg Neutrophils # Man Lymphocytes # (Manual) Monocytes # (Manual) ABG pH POC ABG pCO2 POC ABG pO2 ABG Hemoglobin ABG Oxyhemoglobin ABG Sodium ABG Potassium ABG Chloride ABG Glucose Carboxyhemoglobin Sodium Potassium Chloride BUN Creatinine Glucose POC Glucose Calcium Phosphorus Magnesium AST ALT Total Creatine Kinase 1000 H CK-MB (CK-2) Troponin T Total Protein Albumin HDL Cholesterol TSH 14.190 H Free T3 Index Arterial Blood Glucose Arterial Blood Ionized Calcium Urine pH Urine WBC (Auto) Urine Creatinine Acetaminophen 5.0 L Crossmatch 04/15/21 04/15/21 04/15/21 20:49 21:23 23:15 WBC RBC Hgb Hct MCV MCH RDW Plt Count Lymph % (Auto) [place] % (Auto) [place] # (Auto) Seg Neutrophils % Seg Neuts % (Manual) Lymphocytes % (Manual) Monocytes % (Manual) Seg Neutrophils # Seg Neutrophils # Man Lymphocytes # (Manual) Monocytes # (Manual) ABG pH 7.557 H POC ABG pCO2 30.0 L POC ABG pO2 493.3 H ABG Hemoglobin ABG Oxyhemoglobin 99.0 H ABG Sodium 131.5 L ABG Potassium 4.7 H ABG Chloride 94.0 L ABG Glucose 218 H Carboxyhemoglobin Sodium Potassium Chloride BUN Creatinine Glucose POC Glucose 173 H 207 H Calcium Phosphorus Magnesium AST ALT Total Creatine Kinase CK-MB (CK-2) Troponin T Total Protein Albumin HDL Cholesterol TSH Free T3 Index Arterial Blood Glucose 218 H Arterial Blood Ionized Calcium 5.4 H Urine pH Urine WBC (Auto) Urine Creatinine Acetaminophen Crossmatch 04/16/21 04/16/21 04/16/21 00:09 00:12 00:19 WBC RBC Hgb Hct MCV MCH RDW Plt Count Lymph % (Auto) [place] % (Auto) [place] # (Auto) Seg Neutrophils % Seg Neuts % (Manual) Lymphocytes % (Manual) Monocytes % (Manual) Seg Neutrophils # Seg Neutrophils # Man Lymphocytes # (Manual) Monocytes # (Manual) ABG pH POC ABG pCO2 POC ABG pO2 ABG Hemoglobin ABG Oxyhemoglobin ABG Sodium ABG Potassium ABG Chloride ABG Glucose Carboxyhemoglobin Sodium Potassium 6.7 H* Chloride BUN Creatinine Glucose POC Glucose Calcium Phosphorus Magnesium AST ALT Total Creatine Kinase CK-MB (CK-2) Troponin T Total Protein Albumin HDL Cholesterol TSH Free T3 Index Arterial Blood Glucose Arterial Blood Ionized Calcium Urine pH 9.0 H Urine WBC (Auto) Urine Creatinine 24.4 H Acetaminophen Crossmatch 04/16/21 04/16/21 04/16/21 03:43 03:55 05:02 WBC 21.2 H RBC Hgb Hct 43.4 H MCV 98 H MCH RDW Plt Count Lymph % (Auto) [place] % (Auto) [place] # (Auto) Seg Neutrophils % Seg Neuts % (Manual) 84.0 H Lymphocytes % (Manual) 2.0 L Monocytes % (Manual) 10.0 H Seg Neutrophils # Seg Neutrophils # Man 17.8 H Lymphocytes # (Manual) 0.4 L Monocytes # (Manual) 2.1 H ABG pH 7.461 H POC ABG pCO2 POC ABG pO2 ABG Hemoglobin ABG Oxyhemoglobin ABG Sodium 126.8 L ABG Potassium 5.4 H ABG Chloride 90.0 L ABG Glucose 325 H Carboxyhemoglobin Sodium Potassium Chloride BUN Creatinine Glucose POC Glucose 391 H Calcium Phosphorus Magnesium AST ALT Total Creatine Kinase CK-MB (CK-2) Troponin T Total Protein Albumin HDL Cholesterol TSH Free T3 Index Arterial Blood Glucose 325 H Arterial Blood Ionized Calcium Urine pH Urine WBC (Auto) Urine Creatinine Acetaminophen Crossmatch 04/16/21 04/16/21 04/16/21 05:02 11:34 16:09 WBC RBC Hgb Hct MCV MCH RDW Plt Count Lymph % (Auto) [place] % (Auto) [place] # (Auto) Seg Neutrophils % Seg Neuts % (Manual) Lymphocytes % (Manual) Monocytes % (Manual) Seg Neutrophils # Seg Neutrophils # Man Lymphocytes # (Manual) Monocytes # (Manual) ABG pH POC ABG pCO2 POC ABG pO2 ABG Hemoglobin ABG Oxyhemoglobin ABG Sodium ABG Potassium ABG Chloride ABG Glucose Carboxyhemoglobin Sodium 131 L Potassium 5.9 H Chloride 88.7 L BUN 34 H Creatinine 2.9 H Glucose 249 H POC Glucose 382 H 300 H Calcium 10.4 H Phosphorus Magnesium AST 65 H ALT Total Creatine Kinase CK-MB (CK-2) Troponin T Total Protein Albumin 3.8 L HDL Cholesterol TSH Free T3 Index Arterial Blood Glucose Arterial Blood Ionized Calcium Urine pH Urine WBC (Auto) Urine Creatinine Acetaminophen Crossmatch 04/16/21 04/16/21 04/16/21 18:15 19:01 19:01 WBC RBC Hgb Hct MCV MCH RDW Plt Count Lymph % (Auto) [place] % (Auto) [place] # (Auto) Seg Neutrophils % Seg Neuts % (Manual) Lymphocytes % (Manual) Monocytes % (Manual) Seg Neutrophils # Seg Neutrophils # Man Lymphocytes # (Manual) Monocytes # (Manual) ABG pH POC ABG pCO2 POC ABG pO2 ABG Hemoglobin ABG Oxyhemoglobin ABG Sodium ABG Potassium ABG Chloride ABG Glucose Carboxyhemoglobin Sodium 125 L Potassium 5.5 H Chloride 84.5 L BUN 37 H Creatinine 3.5 H Glucose 236 H POC Glucose 287 H Calcium Phosphorus Magnesium AST ALT Total Creatine Kinase CK-MB (CK-2) Troponin T Total Protein Albumin HDL Cholesterol TSH Free T3 Index 1.1 L Arterial Blood Glucose Arterial Blood Ionized Calcium Urine pH Urine WBC (Auto) Urine Creatinine Acetaminophen Crossmatch 04/16/21 04/16/21 04/17/21 19:01 23:48 03:09 WBC RBC Hgb Hct MCV MCH RDW Plt Count Lymph % (Auto) [place] % (Auto) [place] # (Auto) Seg Neutrophils % Seg Neuts % (Manual) Lymphocytes % (Manual) Monocytes % (Manual) Seg Neutrophils # Seg Neutrophils # Man Lymphocytes # (Manual) Monocytes # (Manual) ABG pH 7.518 H POC ABG pCO2 POC ABG pO2 ABG Hemoglobin ABG Oxyhemoglobin ABG Sodium 126.4 L ABG Potassium ABG Chloride 89.0 L ABG Glucose 200 H Carboxyhemoglobin Sodium Potassium 5.6 H Chloride BUN Creatinine Glucose POC Glucose 243 H Calcium Phosphorus Magnesium AST ALT Total Creatine Kinase CK-MB (CK-2) Troponin T Total Protein Albumin HDL Cholesterol TSH Free T3 Index Arterial Blood Glucose 200 H Arterial Blood Ionized Calcium 4.4 L Urine pH Urine WBC (Auto) Urine Creatinine Acetaminophen Crossmatch 04/17/21 04/17/21 04/17/21 05:04 06:14 11:55 WBC RBC Hgb Hct MCV MCH RDW Plt Count Lymph % (Auto) [place] % (Auto) [place] # (Auto) Seg Neutrophils % Seg Neuts % (Manual) Lymphocytes % (Manual) Monocytes % (Manual) Seg Neutrophils # Seg Neutrophils # Man Lymphocytes # (Manual) Monocytes # (Manual) ABG pH POC ABG pCO2 POC ABG pO2 ABG Hemoglobin ABG Oxyhemoglobin ABG Sodium ABG Potassium ABG Chloride ABG Glucose Carboxyhemoglobin Sodium 129 L Potassium Chloride 86.1 L BUN 39 H Creatinine 3.5 H Glucose 202 H POC Glucose 208 H 276 H Calcium Phosphorus Magnesium AST ALT Total Creatine Kinase 750 H CK-MB (CK-2) Troponin T 0.119 H* D Total Protein Albumin HDL Cholesterol 61 H TSH Free T3 Index Arterial Blood Glucose Arterial Blood Ionized Calcium Urine pH Urine WBC (Auto) Urine Creatinine Acetaminophen Crossmatch 04/17/21 04/17/21 04/17/21 15:35 15:35 17:07 WBC 17.1 H RBC Hgb Hct MCV MCH RDW Plt Count Lymph % (Auto) [place] % (Auto) [place] # (Auto) Seg Neutrophils % Seg Neuts % (Manual) Lymphocytes % (Manual) Monocytes % (Manual) Seg Neutrophils # Seg Neutrophils # Man Lymphocytes # (Manual) Monocytes # (Manual) ABG pH POC ABG pCO2 POC ABG pO2 ABG Hemoglobin ABG Oxyhemoglobin ABG Sodium ABG Potassium ABG Chloride ABG Glucose Carboxyhemoglobin Sodium Potassium Chloride BUN Creatinine Glucose POC Glucose 148 H Calcium Phosphorus Magnesium AST ALT Total Creatine Kinase 615 H CK-MB (CK-2) 9.1 H Troponin T Total Protein Albumin HDL Cholesterol TSH Free T3 Index Arterial Blood Glucose Arterial Blood Ionized Calcium Urine pH Urine WBC (Auto) Urine Creatinine Acetaminophen Crossmatch 04/18/21 04/18/21 04/18/21 00:01 03:00 05:24 WBC RBC Hgb Hct MCV MCH RDW Plt Count Lymph % (Auto) [place] % (Auto) [place] # (Auto) Seg Neutrophils % Seg Neuts % (Manual) Lymphocytes % (Manual) Monocytes % (Manual) Seg Neutrophils # Seg Neutrophils # Man Lymphocytes # (Manual) Monocytes # (Manual) ABG pH 7.497 H POC ABG pCO2 POC ABG pO2 77.7 L ABG Hemoglobin 10.4 L ABG Oxyhemoglobin ABG Sodium 129.7 L ABG Potassium 2.8 L ABG Chloride 92.0 L ABG Glucose 134 H Carboxyhemoglobin 0.3 L Sodium Potassium Chloride BUN Creatinine Glucose POC Glucose 192 H 162 H Calcium Phosphorus Magnesium AST ALT Total Creatine Kinase CK-MB (CK-2) Troponin T Total Protein Albumin HDL Cholesterol TSH Free T3 Index Arterial Blood Glucose 134 H Arterial Blood Ionized Calcium 4.3 L Urine pH Urine WBC (Auto) Urine Creatinine Acetaminophen Crossmatch 04/18/21 04/18/21 04/18/21 05:34 05:34 05:43 WBC 15.3 H RBC 3.34 L Hgb Hct MCV MCH RDW 15.3 H Plt Count Lymph % (Auto) [place] % (Auto) [place] # (Auto) Seg Neutrophils % Seg Neuts % (Manual) Lymphocytes % (Manual) Monocytes % (Manual) Seg Neutrophils # Seg Neutrophils # Man Lymphocytes # (Manual) Monocytes # (Manual) ABG pH POC ABG pCO2 POC ABG pO2 ABG Hemoglobin ABG Oxyhemoglobin ABG Sodium ABG Potassium ABG Chloride ABG Glucose Carboxyhemoglobin Sodium 134 L Potassium 3.0 L D Chloride 93.5 L BUN 42 H Creatinine 3.1 H Glucose 152 H POC Glucose Calcium Phosphorus Magnesium 1.40 L AST ALT Total Creatine Kinase 427 H CK-MB (CK-2) Troponin T 0.081 H D Total Protein Albumin HDL Cholesterol TSH Free T3 Index Arterial Blood Glucose Arterial Blood Ionized Calcium Urine pH Urine WBC (Auto) Urine Creatinine Acetaminophen Crossmatch 04/18/21 04/18/21 04/18/21 09:11 11:34 17:24 WBC RBC Hgb Hct MCV MCH RDW Plt Count Lymph % (Auto) [place] % (Auto) [place] # (Auto) Seg Neutrophils % Seg Neuts % (Manual) Lymphocytes % (Manual) Monocytes % (Manual) Seg Neutrophils # Seg Neutrophils # Man Lymphocytes # (Manual) Monocytes # (Manual) ABG pH POC ABG pCO2 POC ABG pO2 ABG Hemoglobin ABG Oxyhemoglobin ABG Sodium ABG Potassium ABG Chloride ABG Glucose Carboxyhemoglobin Sodium Potassium Chloride BUN Creatinine Glucose POC Glucose 170 H 151 H Calcium Phosphorus Magnesium AST ALT Total Creatine Kinase CK-MB (CK-2) Troponin T Total Protein Albumin HDL Cholesterol TSH Free T3 Index Arterial Blood Glucose Arterial Blood Ionized Calcium Urine pH Urine WBC (Auto) 34.0 H Urine Creatinine Acetaminophen Crossmatch 04/18/21 04/19/21 04/19/21 23:18 04:09 05:19 WBC RBC Hgb Hct MCV MCH RDW Plt Count Lymph % (Auto) [place] % (Auto) [place] # (Auto) Seg Neutrophils % Seg Neuts % (Manual) Lymphocytes % (Manual) Monocytes % (Manual) Seg Neutrophils # Seg Neutrophils # Man Lymphocytes # (Manual) Monocytes # (Manual) ABG pH 7.476 H POC ABG pCO2 POC ABG pO2 79.4 L ABG Hemoglobin 10.7 L ABG Oxyhemoglobin ABG Sodium 131.2 L ABG Potassium 2.8 L ABG Chloride 94.0 L ABG Glucose 209 H Carboxyhemoglobin 0.3 L Sodium Potassium Chloride BUN Creatinine Glucose POC Glucose 182 H 204 H Calcium Phosphorus Magnesium AST ALT Total Creatine Kinase CK-MB (CK-2) Troponin T Total Protein Albumin HDL Cholesterol TSH Free T3 Index Arterial Blood Glucose 209 H Arterial Blood Ionized Calcium Urine pH Urine WBC (Auto) Urine Creatinine Acetaminophen Crossmatch 04/19/21 04/19/21 04/19/21 07:30 07:30 10:35 WBC 14.8 H RBC 3.20 L Hgb Hct MCV 98 H MCH RDW Plt Count 137 L Lymph % (Auto) [place] % (Auto) [place] # (Auto) Seg Neutrophils % Seg Neuts % (Manual) Lymphocytes % (Manual) Monocytes % (Manual) Seg Neutrophils # Seg Neutrophils # Man Lymphocytes # (Manual) Monocytes # (Manual) ABG pH 7.464 H POC ABG pCO2 POC ABG pO2 81.8 L ABG Hemoglobin 10.8 L ABG Oxyhemoglobin ABG Sodium 129.6 L ABG Potassium ABG Chloride 95.0 L ABG Glucose 238 H Carboxyhemoglobin Sodium 133 L Potassium 2.8 L* Chloride 94.4 L BUN 43 H Creatinine 2.7 H Glucose 255 H POC Glucose Calcium 8.0 L Phosphorus Magnesium AST ALT Total Creatine Kinase CK-MB (CK-2) Troponin T 0.060 H D Total Protein Albumin HDL Cholesterol TSH Free T3 Index Arterial Blood Glucose 238 H Arterial Blood Ionized Calcium Urine pH Urine WBC (Auto) Urine Creatinine Acetaminophen Crossmatch 04/19/21 04/19/21 04/19/21 11:48 20:40 23:04 WBC RBC Hgb Hct MCV MCH RDW Plt Count Lymph % (Auto) [place] % (Auto) [place] # (Auto) Seg Neutrophils % Seg Neuts % (Manual) Lymphocytes % (Manual) Monocytes % (Manual) Seg Neutrophils # Seg Neutrophils # Man Lymphocytes # (Manual) Monocytes # (Manual) ABG pH POC ABG pCO2 POC ABG pO2 ABG Hemoglobin ABG Oxyhemoglobin ABG Sodium ABG Potassium ABG Chloride ABG Glucose Carboxyhemoglobin Sodium Potassium 3.4 L D Chloride BUN Creatinine Glucose POC Glucose 208 H 173 H Calcium Phosphorus Magnesium AST ALT Total Creatine Kinase CK-MB (CK-2) Troponin T Total Protein Albumin HDL Cholesterol TSH Free T3 Index Arterial Blood Glucose Arterial Blood Ionized Calcium Urine pH Urine WBC (Auto) Urine Creatinine Acetaminophen Crossmatch 04/20/21 04/20/21 04/20/21 02:56 03:32 03:32 WBC 13.2 H RBC 3.18 L Hgb Hct MCV MCH RDW Plt Count Lymph % (Auto) [place] % (Auto) [place] # (Auto) Seg Neutrophils % Seg Neuts % (Manual) Lymphocytes % (Manual) Monocytes % (Manual) Seg Neutrophils # Seg Neutrophils # Man Lymphocytes # (Manual) Monocytes # (Manual) ABG pH 7.526 H POC ABG pCO2 POC ABG pO2 ABG Hemoglobin 10.5 L ABG Oxyhemoglobin ABG Sodium 133.5 L ABG Potassium ABG Chloride ABG Glucose 157 H Carboxyhemoglobin 0.3 L Sodium 135 L Potassium Chloride 96.7 L BUN 40 H Creatinine 2.3 H Glucose 142 H POC Glucose Calcium Phosphorus Magnesium AST ALT Total Creatine Kinase CK-MB (CK-2) Troponin T 0.065 H Total Protein Albumin HDL Cholesterol TSH Free T3 Index Arterial Blood Glucose 157 H Arterial Blood Ionized Calcium Urine pH Urine WBC (Auto) Urine Creatinine Acetaminophen Crossmatch 04/20/21 04/20/21 04/20/21 03:46 05:42 11:50 WBC RBC Hgb Hct MCV MCH RDW Plt Count Lymph % (Auto) [place] % (Auto) [place] # (Auto) Seg Neutrophils % Seg Neuts % (Manual) Lymphocytes % (Manual) Monocytes % (Manual) Seg Neutrophils # Seg Neutrophils # Man Lymphocytes # (Manual) Monocytes # (Manual) ABG pH POC ABG pCO2 POC ABG pO2 ABG Hemoglobin ABG Oxyhemoglobin ABG Sodium ABG Potassium ABG Chloride ABG Glucose Carboxyhemoglobin Sodium Potassium Chloride BUN Creatinine Glucose POC Glucose 160 H 194 H Calcium Phosphorus 2.10 L Magnesium AST ALT Total Creatine Kinase CK-MB (CK-2) Troponin T Total Protein Albumin HDL Cholesterol TSH Free T3 Index Arterial Blood Glucose Arterial Blood Ionized Calcium Urine pH Urine WBC (Auto) Urine Creatinine Acetaminophen Crossmatch 04/20/21 04/20/21 04/21/21 17:09 23:18 05:26 WBC RBC Hgb Hct MCV MCH RDW Plt Count Lymph % (Auto) [place] % (Auto) [place] # (Auto) Seg Neutrophils % Seg Neuts % (Manual) Lymphocytes % (Manual) Monocytes % (Manual) Seg Neutrophils # Seg Neutrophils # Man Lymphocytes # (Manual) Monocytes # (Manual) ABG pH POC ABG pCO2 POC ABG pO2 ABG Hemoglobin ABG Oxyhemoglobin ABG Sodium ABG Potassium ABG Chloride ABG Glucose Carboxyhemoglobin Sodium Potassium Chloride BUN Creatinine Glucose POC Glucose 153 H 162 H 164 H Calcium Phosphorus Magnesium AST ALT Total Creatine Kinase CK-MB (CK-2) Troponin T Total Protein Albumin HDL Cholesterol TSH Free T3 Index Arterial Blood Glucose Arterial Blood Ionized Calcium Urine pH Urine WBC (Auto) Urine Creatinine Acetaminophen Crossmatch 04/21/21 04/21/21 04/21/21 05:51 05:51 12:12 WBC RBC 3.20 L Hgb Hct MCV 99 H MCH RDW 15.3 H Plt Count Lymph % (Auto) [place] % (Auto) [place] # (Auto) Seg Neutrophils % Seg Neuts % (Manual) Lymphocytes % (Manual) Monocytes % (Manual) Seg Neutrophils # Seg Neutrophils # Man Lymphocytes # (Manual) Monocytes # (Manual) ABG pH POC ABG pCO2 POC ABG pO2 ABG Hemoglobin ABG Oxyhemoglobin ABG Sodium ABG Potassium ABG Chloride ABG Glucose Carboxyhemoglobin Sodium Potassium Chloride 96.6 L BUN 42 H Creatinine 2.1 H Glucose 171 H POC Glucose 167 H Calcium Phosphorus Magnesium AST ALT Total Creatine Kinase CK-MB (CK-2) Troponin T Total Protein Albumin HDL Cholesterol TSH Free T3 Index Arterial Blood Glucose Arterial Blood Ionized Calcium Urine pH Urine WBC (Auto) Urine Creatinine Acetaminophen Crossmatch 04/21/21 04/21/21 04/22/21 17:13 23:42 05:29 WBC RBC Hgb Hct MCV MCH RDW Plt Count Lymph % (Auto) [place] % (Auto) [place] # (Auto) Seg Neutrophils % Seg Neuts % (Manual) Lymphocytes % (Manual) Monocytes % (Manual) Seg Neutrophils # Seg Neutrophils # Man Lymphocytes # (Manual) Monocytes # (Manual) ABG pH POC ABG pCO2 POC ABG pO2 ABG Hemoglobin ABG Oxyhemoglobin ABG Sodium ABG Potassium ABG Chloride ABG Glucose Carboxyhemoglobin Sodium Potassium Chloride BUN Creatinine Glucose POC Glucose 178 H 253 H 208 H Calcium Phosphorus Magnesium AST ALT Total Creatine Kinase CK-MB (CK-2) Troponin T Total Protein Albumin HDL Cholesterol TSH Free T3 Index Arterial Blood Glucose Arterial Blood Ionized Calcium Urine pH Urine WBC (Auto) Urine Creatinine Acetaminophen Crossmatch 04/22/21 04/22/21 04/22/21 08:00 08:00 12:06 WBC 12.9 H RBC Hgb Hct MCV MCH RDW Plt Count Lymph % (Auto) [place] % (Auto) [place] # (Auto) Seg Neutrophils % Seg Neuts % (Manual) Lymphocytes % (Manual) Monocytes % (Manual) Seg Neutrophils # Seg Neutrophils # Man Lymphocytes # (Manual) Monocytes # (Manual) ABG pH POC ABG pCO2 POC ABG pO2 ABG Hemoglobin ABG Oxyhemoglobin ABG Sodium ABG Potassium ABG Chloride ABG Glucose Carboxyhemoglobin Sodium Potassium Chloride BUN 47 H Creatinine 1.9 H Glucose 252 H POC Glucose 298 H Calcium Phosphorus Magnesium AST ALT Total Creatine Kinase CK-MB (CK-2) Troponin T Total Protein Albumin HDL Cholesterol TSH Free T3 Index Arterial Blood Glucose Arterial Blood Ionized Calcium Urine pH Urine WBC (Auto) Urine Creatinine Acetaminophen Crossmatch 04/22/21 04/22/21 04/23/21 17:34 23:01 05:08 WBC RBC Hgb Hct MCV MCH RDW Plt Count Lymph % (Auto) [place] % (Auto) [place] # (Auto) Seg Neutrophils % Seg Neuts % (Manual) Lymphocytes % (Manual) Monocytes % (Manual) Seg Neutrophils # Seg Neutrophils # Man Lymphocytes # (Manual) Monocytes # (Manual) ABG pH POC ABG pCO2 POC ABG pO2 ABG Hemoglobin ABG Oxyhemoglobin ABG Sodium ABG Potassium ABG Chloride ABG Glucose Carboxyhemoglobin Sodium Potassium Chloride BUN Creatinine Glucose POC Glucose 259 H 280 H 223 H Calcium Phosphorus Magnesium AST ALT Total Creatine Kinase CK-MB (CK-2) Troponin T Total Protein Albumin HDL Cholesterol TSH Free T3 Index Arterial Blood Glucose Arterial Blood Ionized Calcium Urine pH Urine WBC (Auto) Urine Creatinine Acetaminophen Crossmatch 04/23/21 04/23/21 04/23/21 07:02 11:57 17:33 WBC RBC Hgb Hct MCV MCH RDW Plt Count Lymph % (Auto) [place] % (Auto) [place] # (Auto) Seg Neutrophils % Seg Neuts % (Manual) Lymphocytes % (Manual) Monocytes % (Manual) Seg Neutrophils # Seg Neutrophils # Man Lymphocytes # (Manual) Monocytes # (Manual) ABG pH POC ABG pCO2 POC ABG pO2 ABG Hemoglobin ABG Oxyhemoglobin ABG Sodium ABG Potassium ABG Chloride ABG Glucose Carboxyhemoglobin Sodium Potassium Chloride 97.7 L BUN 57 H Creatinine 2.0 H Glucose 253 H POC Glucose 310 H 235 H Calcium Phosphorus Magnesium AST ALT Total Creatine Kinase CK-MB (CK-2) Troponin T Total Protein Albumin HDL Cholesterol TSH Free T3 Index Arterial Blood Glucose Arterial Blood Ionized Calcium Urine pH Urine WBC (Auto) Urine Creatinine Acetaminophen Crossmatch 04/23/21 04/24/21 04/24/21 23:15 05:23 05:46 WBC RBC Hgb Hct MCV MCH RDW Plt Count Lymph % (Auto) [place] % (Auto) [place] # (Auto) Seg Neutrophils % Seg Neuts % (Manual) Lymphocytes % (Manual) Monocytes % (Manual) Seg Neutrophils # Seg Neutrophils # Man Lymphocytes # (Manual) Monocytes # (Manual) ABG pH POC ABG pCO2 POC ABG pO2 ABG Hemoglobin ABG Oxyhemoglobin ABG Sodium ABG Potassium ABG Chloride ABG Glucose Carboxyhemoglobin Sodium Potassium 5.2 H D Chloride BUN 68 H Creatinine 2.3 H Glucose 277 H POC Glucose 197 H 274 H Calcium Phosphorus Magnesium AST ALT Total Creatine Kinase CK-MB (CK-2) Troponin T Total Protein Albumin HDL Cholesterol TSH Free T3 Index Arterial Blood Glucose Arterial Blood Ionized Calcium Urine pH Urine WBC (Auto) Urine Creatinine Acetaminophen Crossmatch 04/24/21 04/24/21 04/24/21 11:33 11:52 17:49 WBC RBC Hgb Hct MCV MCH RDW Plt Count Lymph % (Auto) [place] % (Auto) [place] # (Auto) Seg Neutrophils % Seg Neuts % (Manual) Lymphocytes % (Manual) Monocytes % (Manual) Seg Neutrophils # Seg Neutrophils # Man Lymphocytes # (Manual) Monocytes # (Manual) ABG pH POC ABG pCO2 POC ABG pO2 72.7 L ABG Hemoglobin 11.6 L ABG Oxyhemoglobin 92.9 L ABG Sodium ABG Potassium ABG Chloride ABG Glucose 269 H Carboxyhemoglobin Sodium Potassium Chloride BUN Creatinine Glucose POC Glucose 223 H 252 H Calcium Phosphorus Magnesium AST ALT Total Creatine Kinase CK-MB (CK-2) Troponin T Total Protein Albumin HDL Cholesterol TSH Free T3 Index Arterial Blood Glucose 269 H Arterial Blood Ionized Calcium Urine pH Urine WBC (Auto) Urine Creatinine Acetaminophen Crossmatch 04/24/21 04/24/21 04/25/21 21:00 23:48 03:06 WBC RBC Hgb Hct MCV MCH RDW Plt Count Lymph % (Auto) [place] % (Auto) [place] # (Auto) Seg Neutrophils % Seg Neuts % (Manual) Lymphocytes % (Manual) Monocytes % (Manual) Seg Neutrophils # Seg Neutrophils # Man Lymphocytes # (Manual) Monocytes # (Manual) ABG pH 7.521 H 7.451 H POC ABG pCO2 POC ABG pO2 80.7 L 77.1 L ABG Hemoglobin 10.4 L 11.2 L ABG Oxyhemoglobin ABG Sodium ABG Potassium ABG Chloride ABG Glucose 186 H 165 H Carboxyhemoglobin 0 L Sodium Potassium Chloride BUN Creatinine Glucose POC Glucose 141 H Calcium Phosphorus Magnesium AST ALT Total Creatine Kinase CK-MB (CK-2) Troponin T Total Protein Albumin HDL Cholesterol TSH Free T3 Index Arterial Blood Glucose 186 H 165 H Arterial Blood Ionized Calcium Urine pH Urine WBC (Auto) Urine Creatinine Acetaminophen Crossmatch 04/25/21 04/25/21 04/25/21 03:56 03:56 06:03 WBC 12.3 H RBC 3.40 L Hgb Hct MCV MCH RDW Plt Count Lymph % (Auto) [place] % (Auto) [place] # (Auto) Seg Neutrophils % Seg Neuts % (Manual) Lymphocytes % (Manual) Monocytes % (Manual) Seg Neutrophils # Seg Neutrophils # Man Lymphocytes # (Manual) Monocytes # (Manual) ABG pH POC ABG pCO2 POC ABG pO2 ABG Hemoglobin ABG Oxyhemoglobin ABG Sodium ABG Potassium ABG Chloride ABG Glucose Carboxyhemoglobin Sodium Potassium Chloride BUN 78 H Creatinine 2.5 H Glucose 152 H POC Glucose 171 H Calcium Phosphorus Magnesium AST ALT Total Creatine Kinase CK-MB (CK-2) Troponin T Total Protein Albumin HDL Cholesterol TSH Free T3 Index Arterial Blood Glucose Arterial Blood Ionized Calcium Urine pH Urine WBC (Auto) Urine Creatinine Acetaminophen Crossmatch 04/25/21 04/25/21 04/26/21 11:43 15:37 00:05 WBC RBC Hgb Hct MCV MCH RDW Plt Count Lymph % (Auto) [place] % (Auto) [place] # (Auto) Seg Neutrophils % Seg Neuts % (Manual) Lymphocytes % (Manual) Monocytes % (Manual) Seg Neutrophils # Seg Neutrophils # Man Lymphocytes # (Manual) Monocytes # (Manual) ABG pH POC ABG pCO2 POC ABG pO2 ABG Hemoglobin ABG Oxyhemoglobin ABG Sodium ABG Potassium ABG Chloride ABG Glucose Carboxyhemoglobin Sodium Potassium Chloride BUN Creatinine Glucose POC Glucose 181 H 167 H 144 H Calcium Phosphorus Magnesium AST ALT Total Creatine Kinase CK-MB (CK-2) Troponin T Total Protein Albumin HDL Cholesterol TSH Free T3 Index Arterial Blood Glucose Arterial Blood Ionized Calcium Urine pH Urine WBC (Auto) Urine Creatinine Acetaminophen Crossmatch 04/26/21 04/26/21 04/26/21 04:30 05:44 09:30 WBC RBC Hgb Hct MCV MCH RDW Plt Count Lymph % (Auto) [place] % (Auto) [place] # (Auto) Seg Neutrophils % Seg Neuts % (Manual) Lymphocytes % (Manual) Monocytes % (Manual) Seg Neutrophils # Seg Neutrophils # Man Lymphocytes # (Manual) Monocytes # (Manual) ABG pH 7.529 H POC ABG pCO2 POC ABG pO2 66.1 L ABG Hemoglobin 11.2 L ABG Oxyhemoglobin 92.8 L ABG Sodium ABG Potassium ABG Chloride ABG Glucose 216 H Carboxyhemoglobin 0.3 L Sodium Potassium Chloride BUN 82 H Creatinine 2.7 H Glucose 238 H POC Glucose 202 H Calcium Phosphorus Magnesium AST ALT Total Creatine Kinase CK-MB (CK-2) Troponin T Total Protein Albumin HDL Cholesterol TSH Free T3 Index Arterial Blood Glucose 216 H Arterial Blood Ionized Calcium Urine pH Urine WBC (Auto) Urine Creatinine Acetaminophen Crossmatch 04/26/21 04/26/21 04/26/21 09:30 11:32 17:21 WBC 24.7 H RBC 3.32 L Hgb Hct MCV MCH RDW Plt Count Lymph % (Auto) [place] % (Auto) [place] # (Auto) Seg Neutrophils % Seg Neuts % (Manual) Lymphocytes % (Manual) Monocytes % (Manual) Seg Neutrophils # Seg Neutrophils # Man Lymphocytes # (Manual) Monocytes # (Manual) ABG pH POC ABG pCO2 POC ABG pO2 ABG Hemoglobin ABG Oxyhemoglobin ABG Sodium ABG Potassium ABG Chloride ABG Glucose Carboxyhemoglobin Sodium Potassium Chloride BUN Creatinine Glucose POC Glucose 245 H 264 H Calcium Phosphorus Magnesium AST ALT Total Creatine Kinase CK-MB (CK-2) Troponin T Total Protein Albumin HDL Cholesterol TSH Free T3 Index Arterial Blood Glucose Arterial Blood Ionized Calcium Urine pH Urine WBC (Auto) Urine Creatinine Acetaminophen Crossmatch 04/26/21 04/27/21 04/27/21 23:18 04:23 04:54 WBC RBC Hgb Hct MCV MCH RDW Plt Count Lymph % (Auto) [place] % (Auto) [place] # (Auto) Seg Neutrophils % Seg Neuts % (Manual) Lymphocytes % (Manual) Monocytes % (Manual) Seg Neutrophils # Seg Neutrophils # Man Lymphocytes # (Manual) Monocytes # (Manual) ABG pH 7.549 H POC ABG pCO2 30.0 L POC ABG pO2 64.9 L ABG Hemoglobin 11 L ABG Oxyhemoglobin 93.3 L ABG Sodium ABG Potassium ABG Chloride ABG Glucose 325 H Carboxyhemoglobin 0.3 L Sodium Potassium Chloride BUN Creatinine Glucose POC Glucose 201 H 298 H Calcium Phosphorus Magnesium AST ALT Total Creatine Kinase CK-MB (CK-2) Troponin T Total Protein Albumin HDL Cholesterol TSH Free T3 Index Arterial Blood Glucose 325 H Arterial Blood Ionized Calcium Urine pH Urine WBC (Auto) Urine Creatinine Acetaminophen Crossmatch 04/27/21 04/27/21 04/27/21 07:52 07:52 11:22 WBC 23.0 H RBC 3.32 L Hgb Hct MCV MCH RDW 15.5 H Plt Count Lymph % (Auto) [place] % (Auto) [place] # (Auto) Seg Neutrophils % Seg Neuts % (Manual) Lymphocytes % (Manual) Monocytes % (Manual) Seg Neutrophils # Seg Neutrophils # Man Lymphocytes # (Manual) Monocytes # (Manual) ABG pH POC ABG pCO2 POC ABG pO2 ABG Hemoglobin ABG Oxyhemoglobin ABG Sodium ABG Potassium ABG Chloride ABG Glucose Carboxyhemoglobin Sodium Potassium 3.5 L Chloride BUN 90 H Creatinine 2.8 H Glucose 286 H POC Glucose 251 H Calcium Phosphorus Magnesium AST ALT Total Creatine Kinase CK-MB (CK-2) Troponin T Total Protein Albumin HDL Cholesterol TSH Free T3 Index Arterial Blood Glucose Arterial Blood Ionized Calcium Urine pH Urine WBC (Auto) Urine Creatinine Acetaminophen Crossmatch 04/27/21 04/27/21 04/27/21 17:21 17:45 23:05 WBC RBC Hgb Hct MCV MCH RDW Plt Count Lymph % (Auto) [place] % (Auto) [place] # (Auto) Seg Neutrophils % Seg Neuts % (Manual) Lymphocytes % (Manual) Monocytes % (Manual) Seg Neutrophils # Seg Neutrophils # Man Lymphocytes # (Manual) Monocytes # (Manual) ABG pH POC ABG pCO2 POC ABG pO2 ABG Hemoglobin ABG Oxyhemoglobin ABG Sodium ABG Potassium ABG Chloride ABG Glucose Carboxyhemoglobin Sodium Potassium Chloride BUN Creatinine Glucose POC Glucose 180 H 178 H 189 H Calcium Phosphorus Magnesium AST ALT Total Creatine Kinase CK-MB (CK-2) Troponin T Total Protein Albumin HDL Cholesterol TSH Free T3 Index Arterial Blood Glucose Arterial Blood Ionized Calcium Urine pH Urine WBC (Auto) Urine Creatinine Acetaminophen Crossmatch 04/28/21 04/28/21 04/28/21 03:14 04:13 04:13 WBC 17.6 H RBC 3.03 L Hgb 9.7 L Hct 29.5 L MCV MCH RDW Plt Count Lymph % (Auto) [place] % (Auto) [place] # (Auto) Seg Neutrophils % Seg Neuts % (Manual) Lymphocytes % (Manual) Monocytes % (Manual) Seg Neutrophils # Seg Neutrophils # Man Lymphocytes # (Manual) Monocytes # (Manual) ABG pH 7.507 H POC ABG pCO2 POC ABG pO2 62.0 L ABG Hemoglobin 10.2 L ABG Oxyhemoglobin 91.9 L ABG Sodium ABG Potassium ABG Chloride ABG Glucose 337 H Carboxyhemoglobin 0.2 L Sodium Potassium Chloride BUN 101 H Creatinine 3.1 H Glucose 304 H POC Glucose Calcium Phosphorus Magnesium AST 61 H ALT 64 H Total Creatine Kinase CK-MB (CK-2) Troponin T Total Protein 6.2 L Albumin 2.6 L HDL Cholesterol TSH Free T3 Index Arterial Blood Glucose 337 H Arterial Blood Ionized Calcium Urine pH Urine WBC (Auto) Urine Creatinine Acetaminophen Crossmatch 05/29/21 05/29/21 05/29/21 05:01 11:28 18:23 WBC RBC Hgb Hct MCV MCH RDW Plt Count Lymph % (Auto) [place] % (Auto) [place] # (Auto) Seg Neutrophils % Seg Neuts % (Manual) Lymphocytes % (Manual) Monocytes % (Manual) Seg Neutrophils # Seg Neutrophils # Man Lymphocytes # (Manual) Monocytes # (Manual) ABG pH POC ABG pCO2 POC ABG pO2 ABG Hemoglobin ABG Oxyhemoglobin ABG Sodium ABG Potassium ABG Chloride ABG Glucose Carboxyhemoglobin Sodium Potassium Chloride BUN Creatinine Glucose POC Glucose 282 H 263 H 200 H Calcium Phosphorus Magnesium AST ALT Total Creatine Kinase CK-MB (CK-2) Troponin T Total Protein Albumin HDL Cholesterol TSH Free T3 Index Arterial Blood Glucose Arterial Blood Ionized Calcium Urine pH Urine WBC (Auto) Urine Creatinine Acetaminophen Crossmatch 04/28/21 04/29/21 04/29/21 23:49 03:24 04:22 WBC RBC Hgb Hct MCV MCH RDW Plt Count Lymph % (Auto) [place] % (Auto) [place] # (Auto) Seg Neutrophils % Seg Neuts % (Manual) Lymphocytes % (Manual) Monocytes % (Manual) Seg Neutrophils # Seg Neutrophils # Man Lymphocytes # (Manual) Monocytes # (Manual) ABG pH 7.546 H POC ABG pCO2 POC ABG pO2 52.4 L ABG Hemoglobin 10.5 L ABG Oxyhemoglobin 88.3 L ABG Sodium ABG Potassium ABG Chloride ABG Glucose 217 H Carboxyhemoglobin 0.4 L Sodium 148 H Potassium Chloride BUN 110 H Creatinine 3.1 H Glucose 208 H POC Glucose 238 H Calcium Phosphorus Magnesium AST ALT Total Creatine Kinase CK-MB (CK-2) Troponin T Total Protein Albumin HDL Cholesterol TSH Free T3 Index Arterial Blood Glucose 217 H Arterial Blood Ionized Calcium Urine pH Urine WBC (Auto) Urine Creatinine Acetaminophen Crossmatch 04/29/21 04/29/21 04/29/21 04:22 05:08 11:26 WBC 15.2 H RBC 3.30 L Hgb 9.8 L Hct MCV MCH RDW Plt Count Lymph % (Auto) [place] % (Auto) [place] # (Auto) Seg Neutrophils % Seg Neuts % (Manual) Lymphocytes % (Manual) Monocytes % (Manual) Seg Neutrophils # Seg Neutrophils # Man Lymphocytes # (Manual) Monocytes # (Manual) ABG pH POC ABG pCO2 POC ABG pO2 ABG Hemoglobin ABG Oxyhemoglobin ABG Sodium ABG Potassium ABG Chloride ABG Glucose Carboxyhemoglobin Sodium Potassium Chloride BUN Creatinine Glucose POC Glucose 181 H 218 H Calcium Phosphorus Magnesium AST ALT Total Creatine Kinase CK-MB (CK-2) Troponin T Total Protein Albumin HDL Cholesterol TSH Free T3 Index Arterial Blood Glucose Arterial Blood Ionized Calcium Urine pH Urine WBC (Auto) Urine Creatinine Acetaminophen Crossmatch 04/29/21 04/29/21 04/30/21 17:06 23:06 03:58 WBC RBC Hgb Hct MCV MCH RDW Plt Count Lymph % (Auto) [place] % (Auto) [place] # (Auto) Seg Neutrophils % Seg Neuts % (Manual) Lymphocytes % (Manual) Monocytes % (Manual) Seg Neutrophils # Seg Neutrophils # Man Lymphocytes # (Manual) Monocytes # (Manual) ABG pH 7.547 H POC ABG pCO2 31.3 L POC ABG pO2 58.4 L ABG Hemoglobin 9.6 L ABG Oxyhemoglobin 91.1 L ABG Sodium ABG Potassium ABG Chloride 108.0 H ABG Glucose 248 H Carboxyhemoglobin 0.2 L Sodium Potassium Chloride BUN Creatinine Glucose POC Glucose 223 H 252 H Calcium Phosphorus Magnesium AST ALT Total Creatine Kinase CK-MB (CK-2) Troponin T Total Protein Albumin HDL Cholesterol TSH Free T3 Index Arterial Blood Glucose 248 H Arterial Blood Ionized Calcium Urine pH Urine WBC (Auto) Urine Creatinine Acetaminophen Crossmatch 04/30/21 04/30/21 04/30/21 05:23 05:54 11:47 WBC RBC Hgb Hct MCV MCH RDW Plt Count Lymph % (Auto) [place] % (Auto) [place] # (Auto) Seg Neutrophils % Seg Neuts % (Manual) Lymphocytes % (Manual) Monocytes % (Manual) Seg Neutrophils # Seg Neutrophils # Man Lymphocytes # (Manual) Monocytes # (Manual) ABG pH POC ABG pCO2 POC ABG pO2 ABG Hemoglobin ABG Oxyhemoglobin ABG Sodium ABG Potassium ABG Chloride ABG Glucose Carboxyhemoglobin Sodium Potassium Chloride BUN 118 H Creatinine 3.3 H Glucose 263 H POC Glucose 244 H 237 H Calcium Phosphorus Magnesium AST ALT Total Creatine Kinase CK-MB (CK-2) Troponin T Total Protein Albumin HDL Cholesterol TSH Free T3 Index Arterial Blood Glucose Arterial Blood Ionized Calcium Urine pH Urine WBC (Auto) Urine Creatinine Acetaminophen Crossmatch 04/30/21 04/30/21 04/30/21 17:26 17:45 23:51 WBC RBC Hgb Hct MCV MCH RDW Plt Count Lymph % (Auto) [place] % (Auto) [place] # (Auto) Seg Neutrophils % Seg Neuts % (Manual) Lymphocytes % (Manual) Monocytes % (Manual) Seg Neutrophils # Seg Neutrophils # Man Lymphocytes # (Manual) Monocytes # (Manual) ABG pH POC ABG pCO2 POC ABG pO2 ABG Hemoglobin ABG Oxyhemoglobin ABG Sodium ABG Potassium ABG Chloride ABG Glucose Carboxyhemoglobin Sodium Potassium Chloride BUN Creatinine Glucose POC Glucose 193 H 197 H Calcium Phosphorus Magnesium AST ALT Total Creatine Kinase CK-MB (CK-2) Troponin T Total Protein Albumin HDL Cholesterol TSH Free T3 Index Arterial Blood Glucose Arterial Blood Ionized Calcium Urine pH Urine WBC (Auto) 48.0 H Urine Creatinine Acetaminophen Crossmatch 05/01/21 05/01/21 05/01/21 04:02 04:57 07:11 WBC 12.3 H RBC 2.83 L Hgb 8.8 L Hct 27.3 L MCV MCH RDW Plt Count Lymph % (Auto) [place] % (Auto) [place] # (Auto) Seg Neutrophils % Seg Neuts % (Manual) 80.0 H Lymphocytes % (Manual) 5.0 L Monocytes % (Manual) Seg Neutrophils # Seg Neutrophils # Man 9.8 H Lymphocytes # (Manual) 0.6 L Monocytes # (Manual) ABG pH 7.466 H POC ABG pCO2 POC ABG pO2 61.4 L ABG Hemoglobin 9.0 L ABG Oxyhemoglobin 91.1 L ABG Sodium ABG Potassium ABG Chloride 110.0 H ABG Glucose 245 H Carboxyhemoglobin Sodium Potassium Chloride BUN Creatinine Glucose POC Glucose 193 H Calcium Phosphorus Magnesium AST ALT Total Creatine Kinase CK-MB (CK-2) Troponin T Total Protein Albumin HDL Cholesterol TSH Free T3 Index Arterial Blood Glucose 245 H Arterial Blood Ionized Calcium Urine pH Urine WBC (Auto) Urine Creatinine Acetaminophen Crossmatch 05/01/21 05/01/21 05/01/21 07:11 07:45 11:30 WBC RBC Hgb Hct MCV MCH RDW Plt Count Lymph % (Auto) [place] % (Auto) [place] # (Auto) Seg Neutrophils % Seg Neuts % (Manual) Lymphocytes % (Manual) Monocytes % (Manual) Seg Neutrophils # Seg Neutrophils # Man Lymphocytes # (Manual) Monocytes # (Manual) ABG pH POC ABG pCO2 POC ABG pO2 ABG Hemoglobin ABG Oxyhemoglobin ABG Sodium ABG Potassium ABG Chloride ABG Glucose Carboxyhemoglobin Sodium 146 H Potassium Chloride 108.4 H BUN 122 H Creatinine 3.4 H Glucose 235 H POC Glucose 212 H 247 H Calcium Phosphorus Magnesium AST ALT Total Creatine Kinase CK-MB (CK-2) Troponin T Total Protein Albumin HDL Cholesterol TSH Free T3 Index Arterial Blood Glucose Arterial Blood Ionized Calcium Urine pH Urine WBC (Auto) Urine Creatinine Acetaminophen Crossmatch 05/01/21 05/01/21 05/01/21 11:31 17:42 23:49 WBC RBC Hgb Hct MCV MCH RDW Plt Count Lymph % (Auto) [place] % (Auto) [place] # (Auto) Seg Neutrophils % Seg Neuts % (Manual) Lymphocytes % (Manual) Monocytes % (Manual) Seg Neutrophils # Seg Neutrophils # Man Lymphocytes # (Manual) Monocytes # (Manual) ABG pH POC ABG pCO2 POC ABG pO2 ABG Hemoglobin ABG Oxyhemoglobin ABG Sodium ABG Potassium ABG Chloride ABG Glucose Carboxyhemoglobin Sodium Potassium Chloride BUN Creatinine Glucose POC Glucose 258 H 171 H 167 H Calcium Phosphorus Magnesium AST ALT Total Creatine Kinase CK-MB (CK-2) Troponin T Total Protein Albumin HDL Cholesterol TSH Free T3 Index Arterial Blood Glucose Arterial Blood Ionized Calcium Urine pH Urine WBC (Auto) Urine Creatinine Acetaminophen Crossmatch 05/02/21 05/02/21 05/02/21 05:12 08:34 11:53 WBC RBC Hgb Hct MCV MCH RDW Plt Count Lymph % (Auto) [place] % (Auto) [place] # (Auto) Seg Neutrophils % Seg Neuts % (Manual) Lymphocytes % (Manual) Monocytes % (Manual) Seg Neutrophils # Seg Neutrophils # Man Lymphocytes # (Manual) Monocytes # (Manual) ABG pH POC ABG pCO2 POC ABG pO2 ABG Hemoglobin ABG Oxyhemoglobin ABG Sodium ABG Potassium ABG Chloride ABG Glucose Carboxyhemoglobin Sodium 148 H Potassium Chloride 110.4 H BUN 124 H Creatinine 3.4 H Glucose 208 H POC Glucose 163 H 185 H Calcium 8.3 L Phosphorus Magnesium AST ALT Total Creatine Kinase CK-MB (CK-2) Troponin T Total Protein Albumin HDL Cholesterol TSH Free T3 Index Arterial Blood Glucose Arterial Blood Ionized Calcium Urine pH Urine WBC (Auto) Urine Creatinine Acetaminophen Crossmatch 05/02/21 05/02/21 05/03/21 17:28 23:32 03:57 WBC RBC Hgb Hct MCV MCH RDW Plt Count Lymph % (Auto) [place] % (Auto) [place] # (Auto) Seg Neutrophils % Seg Neuts % (Manual) Lymphocytes % (Manual) Monocytes % (Manual) Seg Neutrophils # Seg Neutrophils # Man Lymphocytes # (Manual) Monocytes # (Manual) ABG pH 7.531 H POC ABG pCO2 31.0 L POC ABG pO2 64.3 L ABG Hemoglobin 9.0 L ABG Oxyhemoglobin 92.6 L ABG Sodium 145.7 H ABG Potassium ABG Chloride 112.0 H ABG Glucose 202 H Carboxyhemoglobin Sodium Potassium Chloride BUN Creatinine Glucose POC Glucose 147 H 202 H Calcium Phosphorus Magnesium AST ALT Total Creatine Kinase CK-MB (CK-2) Troponin T Total Protein Albumin HDL Cholesterol TSH Free T3 Index Arterial Blood Glucose 202 H Arterial Blood Ionized Calcium Urine pH Urine WBC (Auto) Urine Creatinine Acetaminophen Crossmatch 05/03/21 05/03/21 05/03/21 05:14 05:44 11:10 WBC RBC Hgb Hct MCV MCH RDW Plt Count Lymph % (Auto) [place] % (Auto) [place] # (Auto) Seg Neutrophils % Seg Neuts % (Manual) Lymphocytes % (Manual) Monocytes % (Manual) Seg Neutrophils # Seg Neutrophils # Man Lymphocytes # (Manual) Monocytes # (Manual) ABG pH POC ABG pCO2 POC ABG pO2 ABG Hemoglobin ABG Oxyhemoglobin ABG Sodium ABG Potassium ABG Chloride ABG Glucose Carboxyhemoglobin Sodium 147 H Potassium Chloride 109.7 H BUN 121 H Creatinine 3.1 H Glucose 190 H POC Glucose 175 H 202 H Calcium Phosphorus Magnesium AST ALT Total Creatine Kinase CK-MB (CK-2) Troponin T Total Protein Albumin HDL Cholesterol TSH Free T3 Index Arterial Blood Glucose Arterial Blood Ionized Calcium Urine pH Urine WBC (Auto) Urine Creatinine Acetaminophen Crossmatch 05/03/21 05/04/21 05/04/21 23:58 04:57 04:57 WBC RBC 2.61 L Hgb 8.2 L Hct 25.4 L MCV 98 H MCH RDW 15.3 H Plt Count Lymph % (Auto) [place] % (Auto) [place] # (Auto) Seg Neutrophils % Seg Neuts % (Manual) Lymphocytes % (Manual) Monocytes % (Manual) Seg Neutrophils # Seg Neutrophils # Man Lymphocytes # (Manual) Monocytes # (Manual) ABG pH POC ABG pCO2 POC ABG pO2 ABG Hemoglobin ABG Oxyhemoglobin ABG Sodium ABG Potassium ABG Chloride ABG Glucose Carboxyhemoglobin Sodium 147 H Potassium Chloride 111.0 H BUN 104 H Creatinine 2.8 H Glucose 179 H POC Glucose 131 H Calcium Phosphorus Magnesium AST ALT Total Creatine Kinase CK-MB (CK-2) Troponin T Total Protein Albumin HDL Cholesterol TSH Free T3 Index Arterial Blood Glucose Arterial Blood Ionized Calcium Urine pH Urine WBC (Auto) Urine Creatinine Acetaminophen Crossmatch 05/04/21 05/04/21 05/04/21 05:19 11:28 17:02 WBC RBC Hgb Hct MCV MCH RDW Plt Count Lymph % (Auto) [place] % (Auto) [place] # (Auto) Seg Neutrophils % Seg Neuts % (Manual) Lymphocytes % (Manual) Monocytes % (Manual) Seg Neutrophils # Seg Neutrophils # Man Lymphocytes # (Manual) Monocytes # (Manual) ABG pH POC ABG pCO2 POC ABG pO2 ABG Hemoglobin ABG Oxyhemoglobin ABG Sodium ABG Potassium ABG Chloride ABG Glucose Carboxyhemoglobin Sodium Potassium Chloride BUN Creatinine Glucose POC Glucose 168 H 206 H 213 H Calcium Phosphorus Magnesium AST ALT Total Creatine Kinase CK-MB (CK-2) Troponin T Total Protein Albumin HDL Cholesterol TSH Free T3 Index Arterial Blood Glucose Arterial Blood Ionized Calcium Urine pH Urine WBC (Auto) Urine Creatinine Acetaminophen Crossmatch 05/04/21 05/05/21 05/05/21 23:13 04:55 05:15 WBC RBC Hgb Hct MCV MCH RDW Plt Count Lymph % (Auto) [place] % (Auto) [place] # (Auto) Seg Neutrophils % Seg Neuts % (Manual) Lymphocytes % (Manual) Monocytes % (Manual) Seg Neutrophils # Seg Neutrophils # Man Lymphocytes # (Manual) Monocytes # (Manual) ABG pH POC ABG pCO2 POC ABG pO2 ABG Hemoglobin ABG Oxyhemoglobin ABG Sodium ABG Potassium ABG Chloride ABG Glucose Carboxyhemoglobin Sodium Potassium Chloride BUN 91 H Creatinine 2.4 H Glucose 255 H POC Glucose 232 H 235 H Calcium Phosphorus Magnesium AST ALT Total Creatine Kinase CK-MB (CK-2) Troponin T Total Protein Albumin HDL Cholesterol TSH Free T3 Index Arterial Blood Glucose Arterial Blood Ionized Calcium Urine pH Urine WBC (Auto) Urine Creatinine Acetaminophen Crossmatch 05/05/21 05/05/21 05/05/21 11:41 17:46 23:40 WBC RBC Hgb Hct MCV MCH RDW Plt Count Lymph % (Auto) [place] % (Auto) [place] # (Auto) Seg Neutrophils % Seg Neuts % (Manual) Lymphocytes % (Manual) Monocytes % (Manual) Seg Neutrophils # Seg Neutrophils # Man Lymphocytes # (Manual) Monocytes # (Manual) ABG pH POC ABG pCO2 POC ABG pO2 ABG Hemoglobin ABG Oxyhemoglobin ABG Sodium ABG Potassium ABG Chloride ABG Glucose Carboxyhemoglobin Sodium Potassium Chloride BUN Creatinine Glucose POC Glucose 199 H 231 H 224 H Calcium Phosphorus Magnesium AST ALT Total Creatine Kinase CK-MB (CK-2) Troponin T Total Protein Albumin HDL Cholesterol TSH Free T3 Index Arterial Blood Glucose Arterial Blood Ionized Calcium Urine pH Urine WBC (Auto) Urine Creatinine Acetaminophen Crossmatch 05/06/21 05/06/21 05/06/21 04:00 05:37 07:12 WBC RBC Hgb Hct MCV MCH RDW Plt Count Lymph % (Auto) [place] % (Auto) [place] # (Auto) Seg Neutrophils % Seg Neuts % (Manual) Lymphocytes % (Manual) Monocytes % (Manual) Seg Neutrophils # Seg Neutrophils # Man Lymphocytes # (Manual) Monocytes # (Manual) ABG pH 7.464 H POC ABG pCO2 POC ABG pO2 74.2 L ABG Hemoglobin 10.5 L ABG Oxyhemoglobin ABG Sodium ABG Potassium ABG Chloride 110.0 H ABG Glucose 214 H Carboxyhemoglobin 0.4 L Sodium 146 H Potassium Chloride 110.4 H BUN 82 H Creatinine 2.3 H Glucose 154 H POC Glucose 165 H Calcium Phosphorus Magnesium AST ALT Total Creatine Kinase CK-MB (CK-2) Troponin T Total Protein Albumin HDL Cholesterol TSH Free T3 Index Arterial Blood Glucose 214 H Arterial Blood Ionized Calcium Urine pH Urine WBC (Auto) Urine Creatinine Acetaminophen Crossmatch 05/06/21 05/06/21 05/07/21 17:11 23:40 05:26 WBC RBC Hgb Hct MCV MCH RDW Plt Count Lymph % (Auto) [place] % (Auto) [place] # (Auto) Seg Neutrophils % Seg Neuts % (Manual) Lymphocytes % (Manual) Monocytes % (Manual) Seg Neutrophils # Seg Neutrophils # Man Lymphocytes # (Manual) Monocytes # (Manual) ABG pH POC ABG pCO2 POC ABG pO2 ABG Hemoglobin ABG Oxyhemoglobin ABG Sodium ABG Potassium ABG Chloride ABG Glucose Carboxyhemoglobin Sodium Potassium Chloride BUN Creatinine Glucose POC Glucose 126 H 165 H 156 H Calcium Phosphorus Magnesium AST ALT Total Creatine Kinase CK-MB (CK-2) Troponin T Total Protein Albumin HDL Cholesterol TSH Free T3 Index Arterial Blood Glucose Arterial Blood Ionized Calcium Urine pH Urine WBC (Auto) Urine Creatinine Acetaminophen Crossmatch 05/07/21 05/07/21 05/07/21 08:20 08:20 11:35 WBC RBC 2.58 L Hgb 7.9 L Hct 24.9 L MCV MCH RDW Plt Count Lymph % (Auto) [place] % (Auto) [place] # (Auto) Seg Neutrophils % Seg Neuts % (Manual) Lymphocytes % (Manual) Monocytes % (Manual) Seg Neutrophils # Seg Neutrophils # Man Lymphocytes # (Manual) Monocytes # (Manual) ABG pH POC ABG pCO2 POC ABG pO2 ABG Hemoglobin ABG Oxyhemoglobin ABG Sodium ABG Potassium ABG Chloride ABG Glucose Carboxyhemoglobin Sodium Potassium Chloride 108.4 H BUN 81 H Creatinine 2.4 H Glucose 133 H POC Glucose 112 H Calcium Phosphorus Magnesium AST ALT Total Creatine Kinase CK-MB (CK-2) Troponin T Total Protein Albumin HDL Cholesterol TSH Free T3 Index Arterial Blood Glucose Arterial Blood Ionized Calcium Urine pH Urine WBC (Auto) Urine Creatinine Acetaminophen Crossmatch 05/07/21 05/07/21 05/08/21 17:51 23:27 03:05 WBC RBC Hgb Hct MCV MCH RDW Plt Count Lymph % (Auto) [place] % (Auto) [place] # (Auto) Seg Neutrophils % Seg Neuts % (Manual) Lymphocytes % (Manual) Monocytes % (Manual) Seg Neutrophils # Seg Neutrophils # Man Lymphocytes # (Manual) Monocytes # (Manual) ABG pH 7.454 H POC ABG pCO2 POC ABG pO2 82.1 L ABG Hemoglobin 8.1 L ABG Oxyhemoglobin ABG Sodium ABG Potassium 4.8 H ABG Chloride 111.0 H ABG Glucose 194 H Carboxyhemoglobin Sodium Potassium Chloride BUN Creatinine Glucose POC Glucose 136 H 133 H Calcium Phosphorus Magnesium AST ALT Total Creatine Kinase CK-MB (CK-2) Troponin T Total Protein Albumin HDL Cholesterol TSH Free T3 Index Arterial Blood Glucose 194 H Arterial Blood Ionized Calcium Urine pH Urine WBC (Auto) Urine Creatinine Acetaminophen Crossmatch 05/08/21 05/08/21 05/08/21 05:52 07:07 07:07 WBC 12.0 H RBC 2.94 L Hgb 9.0 L Hct 28.5 L MCV MCH RDW Plt Count Lymph % (Auto) [place] % (Auto) [place] # (Auto) Seg Neutrophils % Seg Neuts % (Manual) Lymphocytes % (Manual) Monocytes % (Manual) Seg Neutrophils # Seg Neutrophils # Man Lymphocytes # (Manual) Monocytes # (Manual) ABG pH POC ABG pCO2 POC ABG pO2 ABG Hemoglobin ABG Oxyhemoglobin ABG Sodium ABG Potassium ABG Chloride ABG Glucose Carboxyhemoglobin Sodium Potassium Chloride BUN 73 H Creatinine 2.2 H Glucose 211 H POC Glucose 194 H Calcium Phosphorus Magnesium AST ALT Total Creatine Kinase CK-MB (CK-2) Troponin T Total Protein Albumin HDL Cholesterol TSH Free T3 Index Arterial Blood Glucose Arterial Blood Ionized Calcium Urine pH Urine WBC (Auto) Urine Creatinine Acetaminophen Crossmatch 05/08/21 05/08/21 05/08/21 11:19 17:20 23:22 WBC RBC Hgb Hct MCV MCH RDW Plt Count Lymph % (Auto) [place] % (Auto) [place] # (Auto) Seg Neutrophils % Seg Neuts % (Manual) Lymphocytes % (Manual) Monocytes % (Manual) Seg Neutrophils # Seg Neutrophils # Man Lymphocytes # (Manual) Monocytes # (Manual) ABG pH POC ABG pCO2 POC ABG pO2 ABG Hemoglobin ABG Oxyhemoglobin ABG Sodium ABG Potassium ABG Chloride ABG Glucose Carboxyhemoglobin Sodium Potassium Chloride BUN Creatinine Glucose POC Glucose 231 H 251 H 295 H Calcium Phosphorus Magnesium AST ALT Total Creatine Kinase CK-MB (CK-2) Troponin T Total Protein Albumin HDL Cholesterol TSH Free T3 Index Arterial Blood Glucose Arterial Blood Ionized Calcium Urine pH Urine WBC (Auto) Urine Creatinine Acetaminophen Crossmatch 05/09/21 05/09/21 05/09/21 05:39 07:36 11:39 WBC RBC Hgb Hct MCV MCH RDW Plt Count Lymph % (Auto) [place] % (Auto) [place] # (Auto) Seg Neutrophils % Seg Neuts % (Manual) Lymphocytes % (Manual) Monocytes % (Manual) Seg Neutrophils # Seg Neutrophils # Man Lymphocytes # (Manual) Monocytes # (Manual) ABG pH POC ABG pCO2 POC ABG pO2 ABG Hemoglobin ABG Oxyhemoglobin ABG Sodium ABG Potassium ABG Chloride ABG Glucose Carboxyhemoglobin Sodium Potassium Chloride BUN 64 H Creatinine 2.2 H Glucose 308 H POC Glucose 240 H 330 H Calcium Phosphorus Magnesium AST ALT Total Creatine Kinase CK-MB (CK-2) Troponin T Total Protein Albumin HDL Cholesterol TSH Free T3 Index Arterial Blood Glucose Arterial Blood Ionized Calcium Urine pH Urine WBC (Auto) Urine Creatinine Acetaminophen Crossmatch 05/09/21 05/09/21 05/10/21 17:37 23:15 05:15 WBC RBC Hgb Hct MCV MCH RDW Plt Count Lymph % (Auto) [place] % (Auto) [place] # (Auto) Seg Neutrophils % Seg Neuts % (Manual) Lymphocytes % (Manual) Monocytes % (Manual) Seg Neutrophils # Seg Neutrophils # Man Lymphocytes # (Manual) Monocytes # (Manual) ABG pH POC ABG pCO2 POC ABG pO2 ABG Hemoglobin ABG Oxyhemoglobin ABG Sodium ABG Potassium ABG Chloride ABG Glucose Carboxyhemoglobin Sodium Potassium Chloride BUN Creatinine Glucose POC Glucose 174 H 152 H 146 H Calcium Phosphorus Magnesium AST ALT Total Creatine Kinase CK-MB (CK-2) Troponin T Total Protein Albumin HDL Cholesterol TSH Free T3 Index Arterial Blood Glucose Arterial Blood Ionized Calcium Urine pH Urine WBC (Auto) Urine Creatinine Acetaminophen Crossmatch 05/10/21 05/10/21 05/10/21 05:36 11:29 17:35 WBC RBC Hgb Hct MCV MCH RDW Plt Count Lymph % (Auto) [place] % (Auto) [place] # (Auto) Seg Neutrophils % Seg Neuts % (Manual) Lymphocytes % (Manual) Monocytes % (Manual) Seg Neutrophils # Seg Neutrophils # Man Lymphocytes # (Manual) Monocytes # (Manual) ABG pH POC ABG pCO2 POC ABG pO2 ABG Hemoglobin ABG Oxyhemoglobin ABG Sodium ABG Potassium ABG Chloride ABG Glucose Carboxyhemoglobin Sodium Potassium Chloride 110.7 H BUN 54 H Creatinine 2.2 H Glucose 164 H POC Glucose 202 H 109 H Calcium Phosphorus Magnesium AST ALT Total Creatine Kinase CK-MB (CK-2) Troponin T Total Protein Albumin HDL Cholesterol TSH Free T3 Index Arterial Blood Glucose Arterial Blood Ionized Calcium Urine pH Urine WBC (Auto) Urine Creatinine Acetaminophen Crossmatch 05/11/21 05/11/21 05/11/21 05:38 07:10 11:54 WBC RBC Hgb Hct MCV MCH RDW Plt Count Lymph % (Auto) [place] % (Auto) [place] # (Auto) Seg Neutrophils % Seg Neuts % (Manual) Lymphocytes % (Manual) Monocytes % (Manual) Seg Neutrophils # Seg Neutrophils # Man Lymphocytes # (Manual) Monocytes # (Manual) ABG pH POC ABG pCO2 POC ABG pO2 ABG Hemoglobin ABG Oxyhemoglobin ABG Sodium ABG Potassium ABG Chloride ABG Glucose Carboxyhemoglobin Sodium Potassium 5.2 H Chloride 108.8 H BUN 50 H Creatinine 2.2 H Glucose 176 H POC Glucose 135 H 219 H Calcium Phosphorus Magnesium AST ALT Total Creatine Kinase CK-MB (CK-2) Troponin T Total Protein Albumin HDL Cholesterol TSH Free T3 Index Arterial Blood Glucose Arterial Blood Ionized Calcium Urine pH Urine WBC (Auto) Urine Creatinine Acetaminophen Crossmatch 05/11/21 05/11/21 05/12/21 17:51 22:50 04:51 WBC RBC Hgb Hct MCV MCH RDW Plt Count Lymph % (Auto) [place] % (Auto) [place] # (Auto) Seg Neutrophils % Seg Neuts % (Manual) Lymphocytes % (Manual) Monocytes % (Manual) Seg Neutrophils # Seg Neutrophils # Man Lymphocytes # (Manual) Monocytes # (Manual) ABG pH POC ABG pCO2 POC ABG pO2 ABG Hemoglobin ABG Oxyhemoglobin ABG Sodium ABG Potassium ABG Chloride ABG Glucose Carboxyhemoglobin Sodium Potassium Chloride 108.2 H BUN 49 H Creatinine 2.2 H Glucose 161 H POC Glucose 169 H 118 H Calcium Phosphorus Magnesium AST ALT Total Creatine Kinase CK-MB (CK-2) Troponin T Total Protein Albumin HDL Cholesterol TSH Free T3 Index Arterial Blood Glucose Arterial Blood Ionized Calcium Urine pH Urine WBC (Auto) Urine Creatinine Acetaminophen Crossmatch 05/12/21 05/12/21 05/12/21 05:05 10:31 11:50 WBC RBC Hgb Hct MCV MCH RDW Plt Count Lymph % (Auto) [place] % (Auto) [place] # (Auto) Seg Neutrophils % Seg Neuts % (Manual) Lymphocytes % (Manual) Monocytes % (Manual) Seg Neutrophils # Seg Neutrophils # Man Lymphocytes # (Manual) Monocytes # (Manual) ABG pH 7.498 H POC ABG pCO2 POC ABG pO2 75.8 L ABG Hemoglobin 7.3 L ABG Oxyhemoglobin 93.4 L ABG Sodium ABG Potassium ABG Chloride 108.0 H ABG Glucose 199 H Carboxyhemoglobin 1.6 H Sodium Potassium Chloride BUN Creatinine Glucose POC Glucose 160 H 160 H Calcium Phosphorus Magnesium AST ALT Total Creatine Kinase CK-MB (CK-2) Troponin T Total Protein Albumin HDL Cholesterol TSH Free T3 Index Arterial Blood Glucose 199 H Arterial Blood Ionized Calcium Urine pH Urine WBC (Auto) Urine Creatinine Acetaminophen Crossmatch 05/12/21 05/12/21 05/13/21 17:39 23:36 05:49 WBC RBC Hgb Hct MCV MCH RDW Plt Count Lymph % (Auto) [place] % (Auto) [place] # (Auto) Seg Neutrophils % Seg Neuts % (Manual) Lymphocytes % (Manual) Monocytes % (Manual) Seg Neutrophils # Seg Neutrophils # Man Lymphocytes # (Manual) Monocytes # (Manual) ABG pH POC ABG pCO2 POC ABG pO2 ABG Hemoglobin ABG Oxyhemoglobin ABG Sodium ABG Potassium ABG Chloride ABG Glucose Carboxyhemoglobin Sodium Potassium Chloride BUN Creatinine Glucose POC Glucose 148 H 148 H 173 H Calcium Phosphorus Magnesium AST ALT Total Creatine Kinase CK-MB (CK-2) Troponin T Total Protein Albumin HDL Cholesterol TSH Free T3 Index Arterial Blood Glucose Arterial Blood Ionized Calcium Urine pH Urine WBC (Auto) Urine Creatinine Acetaminophen Crossmatch 05/13/21 05/13/21 05/13/21 05:58 13:09 17:01 WBC RBC Hgb Hct MCV MCH RDW Plt Count Lymph % (Auto) [place] % (Auto) [place] # (Auto) Seg Neutrophils % Seg Neuts % (Manual) Lymphocytes % (Manual) Monocytes % (Manual) Seg Neutrophils # Seg Neutrophils # Man Lymphocytes # (Manual) Monocytes # (Manual) ABG pH POC ABG pCO2 POC ABG pO2 ABG Hemoglobin ABG Oxyhemoglobin ABG Sodium ABG Potassium ABG Chloride ABG Glucose Carboxyhemoglobin Sodium Potassium Chloride 108.0 H BUN 53 H Creatinine 2.2 H Glucose 178 H POC Glucose 191 H 151 H Calcium Phosphorus Magnesium AST ALT Total Creatine Kinase CK-MB (CK-2) Troponin T Total Protein Albumin HDL Cholesterol TSH Free T3 Index Arterial Blood Glucose Arterial Blood Ionized Calcium Urine pH Urine WBC (Auto) Urine Creatinine Acetaminophen Crossmatch 05/14/21 05/14/21 05/14/21 00:02 04:48 08:16 WBC RBC Hgb Hct MCV MCH RDW Plt Count Lymph % (Auto) [place] % (Auto) [place] # (Auto) Seg Neutrophils % Seg Neuts % (Manual) Lymphocytes % (Manual) Monocytes % (Manual) Seg Neutrophils # Seg Neutrophils # Man Lymphocytes # (Manual) Monocytes # (Manual) ABG pH POC ABG pCO2 POC ABG pO2 ABG Hemoglobin ABG Oxyhemoglobin ABG Sodium ABG Potassium ABG Chloride ABG Glucose Carboxyhemoglobin Sodium Potassium Chloride BUN 45 H Creatinine 2.0 H Glucose 207 H POC Glucose 148 H 193 H Calcium Phosphorus Magnesium AST ALT Total Creatine Kinase CK-MB (CK-2) Troponin T Total Protein Albumin HDL Cholesterol TSH Free T3 Index Arterial Blood Glucose Arterial Blood Ionized Calcium Urine pH Urine WBC (Auto) Urine Creatinine Acetaminophen Crossmatch 05/14/21 05/14/21 05/14/21 08:50 12:44 17:29 WBC RBC 2.16 L Hgb 7.0 L Hct 21.2 L MCV 98 H MCH 33 H RDW 16.0 H Plt Count Lymph % (Auto) [place] % (Auto) [place] # (Auto) Seg Neutrophils % Seg Neuts % (Manual) Lymphocytes % (Manual) Monocytes % (Manual) Seg Neutrophils # Seg Neutrophils # Man Lymphocytes # (Manual) Monocytes # (Manual) ABG pH POC ABG pCO2 POC ABG pO2 ABG Hemoglobin ABG Oxyhemoglobin ABG Sodium ABG Potassium ABG Chloride ABG Glucose Carboxyhemoglobin Sodium Potassium Chloride BUN Creatinine Glucose POC Glucose 215 H 118 H Calcium Phosphorus Magnesium AST ALT Total Creatine Kinase CK-MB (CK-2) Troponin T Total Protein Albumin HDL Cholesterol TSH Free T3 Index Arterial Blood Glucose Arterial Blood Ionized Calcium Urine pH Urine WBC (Auto) Urine Creatinine Acetaminophen Crossmatch 05/14/21 05/15/21 05/15/21 19:00 05:11 05:51 WBC RBC Hgb Hct MCV MCH RDW Plt Count Lymph % (Auto) [place] % (Auto) [place] # (Auto) Seg Neutrophils % Seg Neuts % (Manual) Lymphocytes % (Manual) Monocytes % (Manual) Seg Neutrophils # Seg Neutrophils # Man Lymphocytes # (Manual) Monocytes # (Manual) ABG pH POC ABG pCO2 POC ABG pO2 ABG Hemoglobin ABG Oxyhemoglobin ABG Sodium ABG Potassium ABG Chloride ABG Glucose Carboxyhemoglobin Sodium Potassium 5.3 H Chloride BUN 42 H Creatinine 2.0 H Glucose 123 H POC Glucose 116 H Calcium Phosphorus Magnesium AST ALT Total Creatine Kinase CK-MB (CK-2) Troponin T Total Protein Albumin HDL Cholesterol TSH Free T3 Index Arterial Blood Glucose Arterial Blood Ionized Calcium Urine pH Urine WBC (Auto) Urine Creatinine Acetaminophen Crossmatch See Detail 05/15/21 05/15/21 05/15/21 05:51 11:27 22:00 WBC RBC 2.60 L Hgb 8.0 L Hct 24.6 L MCV MCH RDW 17.0 H Plt Count Lymph % (Auto) [place] % (Auto) 15.3 H [place] # (Auto) 1.1 H Seg Neutrophils % Seg Neuts % (Manual) Lymphocytes % (Manual) Monocytes % (Manual) Seg Neutrophils # Seg Neutrophils # Man Lymphocytes # (Manual) Monocytes # (Manual) ABG pH 7.473 H POC ABG pCO2 POC ABG pO2 77.7 L ABG Hemoglobin 8.4 L ABG Oxyhemoglobin ABG Sodium ABG Potassium 4.7 H ABG Chloride ABG Glucose 104 H Carboxyhemoglobin Sodium Potassium Chloride BUN Creatinine Glucose POC Glucose 156 H Calcium Phosphorus Magnesium AST ALT Total Creatine Kinase CK-MB (CK-2) Troponin T Total Protein Albumin HDL Cholesterol TSH Free T3 Index Arterial Blood Glucose 104 H Arterial Blood Ionized Calcium Urine pH Urine WBC (Auto) Urine Creatinine Acetaminophen Crossmatch 05/16/21 05/16/21 05/16/21 05:25 06:40 11:57 WBC RBC Hgb Hct MCV MCH RDW Plt Count Lymph % (Auto) [place] % (Auto) [place] # (Auto) Seg Neutrophils % Seg Neuts % (Manual) Lymphocytes % (Manual) Monocytes % (Manual) Seg Neutrophils # Seg Neutrophils # Man Lymphocytes # (Manual) Monocytes # (Manual) ABG pH POC ABG pCO2 POC ABG pO2 ABG Hemoglobin ABG Oxyhemoglobin ABG Sodium ABG Potassium ABG Chloride ABG Glucose Carboxyhemoglobin Sodium Potassium 5.4 H Chloride BUN 39 H Creatinine 2.0 H Glucose 165 H POC Glucose 143 H 191 H Calcium Phosphorus Magnesium AST ALT Total Creatine Kinase CK-MB (CK-2) Troponin T Total Protein Albumin HDL Cholesterol TSH Free T3 Index Arterial Blood Glucose Arterial Blood Ionized Calcium Urine pH Urine WBC (Auto) Urine Creatinine Acetaminophen Crossmatch 05/16/21 05/16/21 05/17/21 17:18 23:02 05:08 WBC RBC Hgb Hct MCV MCH RDW Plt Count Lymph % (Auto) [place] % (Auto) [place] # (Auto) Seg Neutrophils % Seg Neuts % (Manual) Lymphocytes % (Manual) Monocytes % (Manual) Seg Neutrophils # Seg Neutrophils # Man Lymphocytes # (Manual) Monocytes # (Manual) ABG pH POC ABG pCO2 POC ABG pO2 ABG Hemoglobin ABG Oxyhemoglobin ABG Sodium ABG Potassium ABG Chloride ABG Glucose Carboxyhemoglobin Sodium Potassium Chloride BUN Creatinine Glucose POC Glucose 157 H 127 H 171 H Calcium Phosphorus Magnesium AST ALT Total Creatine Kinase CK-MB (CK-2) Troponin T Total Protein Albumin HDL Cholesterol TSH Free T3 Index Arterial Blood Glucose Arterial Blood Ionized Calcium Urine pH Urine WBC (Auto) Urine Creatinine Acetaminophen Crossmatch 05/17/21 05/17/21 05/17/21 07:43 07:43 11:11 WBC RBC 2.83 L Hgb 8.6 L Hct 26.8 L MCV MCH RDW 16.2 H Plt Count Lymph % (Auto) [place] % (Auto) [place] # (Auto) Seg Neutrophils % Seg Neuts % (Manual) Lymphocytes % (Manual) Monocytes % (Manual) Seg Neutrophils # Seg Neutrophils # Man Lymphocytes # (Manual) Monocytes # (Manual) ABG pH POC ABG pCO2 POC ABG pO2 ABG Hemoglobin ABG Oxyhemoglobin ABG Sodium ABG Potassium ABG Chloride ABG Glucose Carboxyhemoglobin Sodium Potassium Chloride BUN 39 H Creatinine 2.1 H Glucose 183 H POC Glucose 182 H Calcium Phosphorus Magnesium AST ALT Total Creatine Kinase CK-MB (CK-2) Troponin T Total Protein Albumin HDL Cholesterol TSH Free T3 Index Arterial Blood Glucose Arterial Blood Ionized Calcium Urine pH Urine WBC (Auto) Urine Creatinine Acetaminophen Crossmatch 05/17/21 05/17/21 05/18/21 17:25 21:04 01:54 WBC RBC Hgb Hct MCV MCH RDW Plt Count Lymph % (Auto) [place] % (Auto) [place] # (Auto) Seg Neutrophils % Seg Neuts % (Manual) Lymphocytes % (Manual) Monocytes % (Manual) Seg Neutrophils # Seg Neutrophils # Man Lymphocytes # (Manual) Monocytes # (Manual) ABG pH POC ABG pCO2 POC ABG pO2 ABG Hemoglobin 9.2 L ABG Oxyhemoglobin ABG Sodium ABG Potassium ABG Chloride ABG Glucose 160 H Carboxyhemoglobin Sodium Potassium Chloride BUN Creatinine Glucose POC Glucose 117 H 130 H Calcium Phosphorus Magnesium AST ALT Total Creatine Kinase CK-MB (CK-2) Troponin T Total Protein Albumin HDL Cholesterol TSH Free T3 Index Arterial Blood Glucose 160 H Arterial Blood Ionized Calcium Urine pH Urine WBC (Auto) Urine Creatinine Acetaminophen Crossmatch 05/18/21 05/18/21 05/18/21 05:21 06:13 06:45 WBC RBC Hgb Hct MCV MCH RDW Plt Count Lymph % (Auto) [place] % (Auto) [place] # (Auto) Seg Neutrophils % Seg Neuts % (Manual) Lymphocytes % (Manual) Monocytes % (Manual) Seg Neutrophils # Seg Neutrophils # Man Lymphocytes # (Manual) Monocytes # (Manual) ABG pH POC ABG pCO2 POC ABG pO2 ABG Hemoglobin ABG Oxyhemoglobin ABG Sodium ABG Potassium ABG Chloride ABG Glucose Carboxyhemoglobin Sodium Potassium Chloride BUN 42 H Creatinine 2.1 H Glucose 154 H POC Glucose 163 H Calcium Phosphorus Magnesium AST ALT Total Creatine Kinase CK-MB (CK-2) Troponin T Total Protein Albumin HDL Cholesterol TSH Free T3 Index Arterial Blood Glucose Arterial Blood Ionized Calcium Urine pH Urine WBC (Auto) Urine Creatinine 104.7 H Acetaminophen Crossmatch 05/18/21 12:01 WBC RBC Hgb Hct MCV MCH RDW Plt Count Lymph % (Auto) [place] % (Auto) [place] # (Auto) Seg Neutrophils % Seg Neuts % (Manual) Lymphocytes % (Manual) Monocytes % (Manual) Seg Neutrophils # Seg Neutrophils # Man Lymphocytes # (Manual) Monocytes # (Manual) ABG pH POC ABG pCO2 POC ABG pO2 ABG Hemoglobin ABG Oxyhemoglobin ABG Sodium ABG Potassium ABG Chloride ABG Glucose Carboxyhemoglobin Sodium Potassium Chloride BUN Creatinine Glucose POC Glucose 209 H Calcium Phosphorus Magnesium AST ALT Total Creatine Kinase CK-MB (CK-2) Troponin T Total Protein Albumin HDL Cholesterol TSH Free T3 Index Arterial Blood Glucose Arterial Blood Ionized Calcium Urine pH Urine WBC (Auto) Urine Creatinine Acetaminophen Crossmatch Allied health notes reviewed: nursing
--- NOTE | 2021-05-18 13:45 | Progress Note ---
Assessment and Plan 1. Acute kidney injury: Vasomotor ROJELIO. ATN likely. Renal US negative for hydro. Baseline renal function is unknown. Monitor renal function. Non-oliguric. Creatinine leveled off. Avoid nephrotoxic agents. Meds dosage based on GFR. 2. FEN: Hypokalemia, improved, monitor. Hypernatremia, improved, monitor. Monitor lytes and volume status. 3. Acute hypoxemic respiratory failure: Extubated, re-intubated 04/24. Trached 05/07. On T-piece. 4. Acute encephalopathy: MRI brain negative. Seen by Neuro. 5. UTI: Treated. 6. Hypertension. 7. DM type 2. 8. Mild rhabdomyolysis: Improved. 9. Mildly complex R renal cyst: Further testing once patient is more stable. Explained patient's niece at the bedside about follow up evaluation. Subjective: Patient was seen and examined at the bedside. Niece at the bedside. Examination: General appearance: well-developed, appears stated age, trached on T-piece HEENT: atraumatic Neck: trached Respiratory: Coarse breath sounds heard Heart: S1S2, no murmur Abdomen: soft, obese, bowel sounds heard, NT, PEG tube noted Integumentary: no obvious rash Neurologic: stuporous Ext: no edema noted Subjective Date of service: 05/18/21 Principal diagnosis: Ac. resp failure; AMS; Hypoglycemia; ROJELIO; Hyperkalemia; DM II Objective - Vital Signs Vital signs: Vital Signs - 12hr 05/18/21 05/18/21 05/18/21 04:01 08:09 10:00 Temperature 98.0 F 97.8 F Pulse Rate 76 78 Respiratory 18 18 Rate Blood Pressure 133/59 136/56 O2 Sat by Pulse 100 94 100 Oximetry O2 Sat by Pulse Oximetry [ Assessment] 05/18/21 10:15 Temperature Pulse Rate Respiratory Rate Blood Pressure O2 Sat by Pulse Oximetry O2 Sat by Pulse 100 Oximetry [ Assessment] - Lab 05/17/21 07:43 05/18/21 05:21 Most recent lab results ABG pH 7.417 (7.320-7.450) 05/17/21 21:04 ABG O2 Saturation 97.0 (0-100) 05/17/21 21:04 Calcium 9.3 mg/dL (8.4-10.2) 05/18/21 05:21 Phosphorus 2.60 mg/dL (2.5-4.5) 04/22/21 08:00 Magnesium 2.10 mg/dL (1.7-2.3) 04/23/21 07:02 Urine Creatinine 104.7 mg/dL (0.1-20.0) H 05/18/21 06:45 Urine Sodium 81 mmol/L 05/18/21 06:45 Medications & Allergies - Medications Allergies/Adverse Reactions: Allergies No Known Allergies Allergy (Unverified 04/15/21 17:41) Home Medications: Home Medications Medication Instructions Recorded Confirmed Last Taken Type Betaxolol HCl [Betoptic S 0.25% 1 drop OU BID 04/16/21 04/16/21 Unknown History SUSP] Bimatoprost [Lumigan 0.01%] 1 drop OU QPM 04/16/21 04/16/21 Unknown History Brimonidine Tartrate [Brimonidine 5 ml OU BID 04/16/21 04/16/21 Unknown History Tartrate 0.2%] Furosemide [Lasix TAB] 40 mg PO QDAY 04/16/21 04/16/21 Unknown History Gabapentin [Neurontin] 300 mg PO Q8HR 04/16/21 04/16/21 Unknown History HYDROcodone/APAP 10-325 [[place] 1 each PO Q6HR PRN 04/16/21 04/16/21 Unknown History 10/325] Hydralazine HCl 50 mg PO Q4HR 04/16/21 04/16/21 Unknown History Insulin Aspart Prot/Insuln Asp 52 units SQ HS 04/16/21 04/16/21 Unknown History [Novolog Mix 70-30 Flexpen] Metoprolol [Lopressor] 25 mg PO BID 04/16/21 04/16/21 Unknown History Pravastatin [Pravachol] 20 mg PO QHS 04/16/21 04/16/21 Unknown History Promethazine [Phenergan] 25 mg PO Q6HR 04/16/21 04/16/21 Unknown History allopurinoL [Zyloprim] 150 mg PO QDAY 04/16/21 04/16/21 Unknown History Active Medications: Generic Name Dose Route Start Last Admin Trade Name Freq PRN Reason Stop Dose Admin Acetaminophen 650 mg 04/15/21 19:11 05/17/21 12:33 Acetaminophen 325 Mg Tab PO 650 mg Q6H PRN Administration Pain MILD(1-3)/Fever >100.5/SEXTON Albuterol 2.5 mg 05/09/21 13:16 05/16/21 09:40 Albuterol 2.5 Mg/3 Ml Nebu IH 2.5 mg Q6HRT PRN Administration Shortness Of Breath Amlodipine Besylate 2.5 mg 05/18/21 10:00 05/18/21 10:05 Amlodipine 5 Mg Tab PO 2.5 mg QDAY WOLFGANG Administration Lipase/Protease/Amylase 1 each 04/16/21 12:52 Lipase 10,500/Protease 25,000/Amylase 43,750 (Units) Dr Simpson FEEDTUBE PRN PRN For Clogged Feeding Tube Aspirin 81 mg 04/25/21 10:00 05/18/21 10:04 Aspirin 81 Mg Tab Chew PO 81 mg QDAY WOLFGANG Administration Bisacodyl 10 mg 04/17/21 11:01 05/03/21 09:50 Bisacodyl [address] 10 mg QDAY PRN Administration Constipation Brimonidine Tartrate 1 drops 04/17/21 22:00 05/18/21 10:07 Brimonidine 0.15% Ophth Soln OU 1 drops BID WOLFGANG Administration Docusate Sodium 100 mg 04/29/21 15:00 05/18/21 10:04 Docusate Sodium 100 Mg/10 Ml Oral Liqd PO 100 mg BID WOLFGANG Administration Famotidine 20 mg 04/17/21 10:00 05/18/21 10:05 Famotidine 20 Mg Tab PO 20 mg DAILY WOLFGANG Administration Glycopyrrolate 1 mg 05/17/21 20:00 05/18/21 13:28 Glycopyrrolate 1 Mg Tab PO 1 mg TID WOLFGANG Administration Heparin Sodium (Porcine) 5,000 unit 04/15/21 22:00 05/18/21 10:06 Heparin 5,000 Unit/1 Ml Vial SUB-Q 5,000 unit Q12HR WOLFGANG Administration Hydralazine HCl 10 mg 04/16/21 18:00 05/17/21 03:32 Hydralazine 20 Mg/1 Ml Inj IV 10 mg Q4HR PRN Administration Hypertension Hydrophilic Ointment 1 applic 04/15/21 17:24 Lip Therapy Vaseline TP Q2HR PRN Dry Lips Sodium Chloride 1,000 mls @ 75 mls/hr 05/17/21 15:00 05/18/21 08:48 Nacl 0.9% 1000 Ml IV 05/19/21 04:19 75 mls/hr DIRECT WOLFGANG Administration Insulin Human Isoph/Insulin Regular 25 unit 05/09/21 08:00 05/18/21 09:00 Insulin Nph/Regular 70/30 Inj SUB-Q 25 unit BIDDIAB WOLFGANG Administration Insulin Human Lispro 0 unit 04/16/21 15:00 05/18/21 13:28 Insulin Lispro 100 Unit/Ml SUB-Q 4 unit Q6HR WOLFGANG Administration Protocol Latanoprost 1 drops 04/17/21 18:00 05/17/21 17:48 Latanoprost 0.005% Ophth Soln 2.5 Ml OU 1 drops QPM WOLFGANG Administration Levothyroxine Sodium 25 mcg 04/19/21 06:00 05/18/21 05:25 Levothyroxine 25 Mcg Tab PO 25 mcg DAILY@0600 WOLFGANG Administration Lorazepam 2 mg 05/13/21 09:30 Lorazepam 2 Mg/Ml Vial IV Q4H PRN Agitation Midodrine 10 mg 05/17/21 16:00 05/18/21 13:25 Midodrine 5 Mg Tab PO 10 mg TID@0800,1200,1600 WOLFGANG Administration Multi-Ingred Cream/Lotion/Oil/Oint 1 applic 04/15/21 17:24 05/17/21 21:31 Mineral Oil/Petrolatum, White Ophth Oint 3.5 Gm OU 1 applic Q4HR PRN Administration Dry Eye(s) Pravastatin Sodium 20 mg 04/19/21 22:00 05/17/21 21:31 Pravastatin 20 Mg Tab PO 20 mg QHS WOLFGANG Administration Scopolamine 1 each 04/20/21 18:00 05/17/21 09:33 Scopolamine Transdermal Patch 72 Hr TD 1 each Q3D WOLFGANG Administration Simple Syrup 15 ml 04/16/21 12:52 Simple Syrup 15 Ml FEEDTUBE PRN PRN Hypoglycemia Simple Syrup 30 ml 04/16/21 12:52 Simple Syrup 15 Ml FEEDTUBE PRN PRN Hypoglycemia Sodium Bicarbonate 325 mg 04/16/21 12:52 Sodium Bicarbonate 325 Mg Tab FEEDTUBE PRN PRN For Clogged Feeding Tube Sodium Chloride 10 ml 04/15/21 22:00 05/18/21 10:06 Sodium Chloride 0.9% 10 Ml Flush Syringe IV 10 ml BID WOLFGANG Administration Sodium Chloride 10 ml 04/15/21 19:11 04/24/21 05:27 Sodium Chloride 0.9% 10 Ml Flush Syringe IV 10 ml PRN PRN Administration LINE FLUSH Tamsulosin HCl 0.4 mg 04/25/21 14:00 05/18/21 10:05 Tamsulosin 0.4 Mg Cap PO 0.4 mg QDAY WOLFGANG Administration Timolol Maleate 1 drops 04/19/21 10:00 05/18/21 10:06 Timolol 0.5% Ophth Soln 5 Ml OU 1 drops QDAY WOLFGANG Administration
[2021-05-18] MEDS: LATANOPROST 0.005% OPHTH SOLN 2.5 ML OU SCH (18:44)
[2021-05-18] MEDS: PRAVASTATIN 20 MG TAB PO SCH (21:15)
[2021-05-19] MEDS: INSULIN LISPRO 100 UNIT/ML SUB-Q SCH ×4 (00:18→18:02)
[2021-05-19] MEDS: hydrALAZINE 20 MG/1 ML INJ IV PRN (06:36)
[2021-05-19] MEDS: LEVOTHYROXINE 25 MCG TAB PO SCH (06:37)
--- NOTE | 2021-05-19 08:43 | Progress Note ---
Assessment and Plan Acute respiratory failure, s/p mechanical ventilatory support. s/p Tracheostomy Oropharyngeal dysphagia s/p PEG Acute toxic metabolic encephalopathy ROJELIO Hyperkalemia Possible seizure activity DM II HTN CAD Obesity H/O breast cancer H/O TIA Leukocytosis Elevated serum TSH, possible hypothyroidism - continue to titrate supplemental oxygen to keep SpO2 89-92% -trach care, airway clearance, secretion management -Aspiration precautions, HOB >40 -Continue with Midodrine for blood pressure support - continue bronchodilators with pulmonary hygiene per RT - avoid nephrotoxins, dose all medications based on GFR/CrCL - continue to avoid benzodiazepines, reduce the possibility of delirium - follow clinically off ABs; trend fevers / WBC -ABG and CXR as clinically indicated - Maintenance of sleep-wake cycle, avoid delirium - continue enteric nutritional support at goal rate as tolerated, bowel regimen - continue accuchecks with glycemic control per SSI (While critically ill target blood glucose of 140-180 mg/dL; avoid hypoglycemia) - G.I. & VTE prophylaxis - PT/OT/ROM exercises- increase activity as tolerated - continue mobility protocols for pressure ulcer prophylaxis - Monitor hemodynamics closely - continue other care per attending / other consultants Discharge planning CONDITION:FAIR PROGNOSIS: FAIR CODE STATUS: FULL CODE Subjective Date of service: 05/19/21 Principal diagnosis: Ac. resp failure; AMS; Hypoglycemia; ROJELIO; Hyperkalemia; DM II Interval history: Patient is seen today for: Acute respiratory failure s/p tracheostomy; AMS; Hypoglycemia; ROJELIO; Hyperkalemia; DM II; H/O breast cancer; Elevated serum TSH, possible hypothyroidism Seen and examined at bedside; 24hour events reviewed; nursing and respiratory care staff consulted; no adverse overnight events reported to me; resting peacefully in bed; s/p trach to ATP, strong cough No reported fevers, No diarrhea , no vomiting, tolerating tube feeding Objective Vital Signs - 12hr 05/18/21 05/18/21 05/19/21 22:00 23:56 00:15 Temperature 99.6 F Pulse Rate 84 Respiratory 22 Rate Blood Pressure 168/66 O2 Sat by Pulse 98 97 100 Oximetry O2 Sat by Pulse 95 100 Oximetry [ Assessment] 05/19/21 08:34 Temperature Pulse Rate Respiratory Rate Blood Pressure O2 Sat by Pulse 98 Oximetry O2 Sat by Pulse Oximetry [ Assessment] Constitutional: no acute distress, alert, other (elderly obese female with mildly increased respiratory effort at rest on t-piece, thick secretions with a stron cough) Eyes: non-icteric ENT: oropharynx moist, oropharyngeal exudate pre, other (+ midline tracheostomy without bleeding stoma) Neck: supple, no lymphadenopathy, no JVD, other (large circumference) Effort: normal Ascultation: Bilateral: clear, diminished breath sounds, rales, rhonchi (scant), other (mild stridorous sounds) Percussion: Bilateral: not dull Cardiovascular: regular rate and rhythm, other (S1,S2) Gastrointestinal: normoactive bowel sounds, hypoactive bowel sounds, non-tender, non-distended (protuberant), other (PEG in place) Integumentary: normal Extremities: no cyanosis, no edema, pulses normal, no ischemia or petechiae Neurologic: non-focal exam (tracks voice), pupils equal and round, other (generalized weakness) Psychiatric: other (falt affect) CBC and BMP: 05/19/21 07:40 05/19/21 07:40 ABG, PT/INR, D-dimer: ABG ABG pH 7.417 (7.320-7.450) 05/17/21 21:04 POC ABG pCO2 41.2 mmHg (32.0-48.0) 05/17/21 21:04 POC ABG pO2 88.3 mmHg (83-108) 05/17/21 21:04 POC ABG HCO3 25.9 05/17/21 21:04 ABG O2 Saturation 97.0 (0-100) 05/17/21 21:04 PT/INR, D-dimer PT 14.8 Sec. (12.2-14.9) 05/07/21 08:20 INR 1.11 (0.87-1.13) 05/07/21 08:20 Abnormal lab findings: Abnormal Labs 04/15/21 04/15/21 04/15/21 17:00 17:20 17:20 WBC 11.2 H RBC Hgb Hct 43.0 H MCV MCH RDW 15.3 H Plt Count Lymph % (Auto) 12.8 L [place] % (Auto) [place] # (Auto) Seg Neutrophils % 82.4 H Seg Neuts % (Manual) Lymphocytes % (Manual) Monocytes % (Manual) Seg Neutrophils # 9.3 H Seg Neutrophils # Man Lymphocytes # (Manual) Monocytes # (Manual) ABG pH POC ABG pCO2 POC ABG pO2 ABG Hemoglobin ABG Oxyhemoglobin ABG Sodium ABG Potassium ABG Chloride ABG Glucose Carboxyhemoglobin Sodium 129 L Potassium 7.1 H* Chloride 91.9 L BUN 35 H Creatinine 2.8 H Glucose POC Glucose 191 H Calcium Phosphorus Magnesium AST 69 H ALT Total Creatine Kinase CK-MB (CK-2) Troponin T Total Protein Albumin HDL Cholesterol TSH Free T3 Index Arterial Blood Glucose Arterial Blood Ionized Calcium Urine pH Urine WBC (Auto) Urine Creatinine Acetaminophen Crossmatch 04/15/21 04/15/21 04/15/21 17:20 17:20 17:20 WBC RBC Hgb Hct MCV MCH RDW Plt Count Lymph % (Auto) [place] % (Auto) [place] # (Auto) Seg Neutrophils % Seg Neuts % (Manual) Lymphocytes % (Manual) Monocytes % (Manual) Seg Neutrophils # Seg Neutrophils # Man Lymphocytes # (Manual) Monocytes # (Manual) ABG pH POC ABG pCO2 POC ABG pO2 ABG Hemoglobin ABG Oxyhemoglobin ABG Sodium ABG Potassium ABG Chloride ABG Glucose Carboxyhemoglobin Sodium Potassium Chloride BUN Creatinine Glucose POC Glucose Calcium Phosphorus Magnesium AST ALT Total Creatine Kinase 1000 H CK-MB (CK-2) Troponin T Total Protein Albumin HDL Cholesterol TSH 14.190 H Free T3 Index Arterial Blood Glucose Arterial Blood Ionized Calcium Urine pH Urine WBC (Auto) Urine Creatinine Acetaminophen 5.0 L Crossmatch 04/15/21 04/15/21 04/15/21 20:49 21:23 23:15 WBC RBC Hgb Hct MCV MCH RDW Plt Count Lymph % (Auto) [place] % (Auto) [place] # (Auto) Seg Neutrophils % Seg Neuts % (Manual) Lymphocytes % (Manual) Monocytes % (Manual) Seg Neutrophils # Seg Neutrophils # Man Lymphocytes # (Manual) Monocytes # (Manual) ABG pH 7.557 H POC ABG pCO2 30.0 L POC ABG pO2 493.3 H ABG Hemoglobin ABG Oxyhemoglobin 99.0 H ABG Sodium 131.5 L ABG Potassium 4.7 H ABG Chloride 94.0 L ABG Glucose 218 H Carboxyhemoglobin Sodium Potassium Chloride BUN Creatinine Glucose POC Glucose 173 H 207 H Calcium Phosphorus Magnesium AST ALT Total Creatine Kinase CK-MB (CK-2) Troponin T Total Protein Albumin HDL Cholesterol TSH Free T3 Index Arterial Blood Glucose 218 H Arterial Blood Ionized Calcium 5.4 H Urine pH Urine WBC (Auto) Urine Creatinine Acetaminophen Crossmatch 04/16/21 04/16/21 04/16/21 00:09 00:12 00:19 WBC RBC Hgb Hct MCV MCH RDW Plt Count Lymph % (Auto) [place] % (Auto) [place] # (Auto) Seg Neutrophils % Seg Neuts % (Manual) Lymphocytes % (Manual) Monocytes % (Manual) Seg Neutrophils # Seg Neutrophils # Man Lymphocytes # (Manual) Monocytes # (Manual) ABG pH POC ABG pCO2 POC ABG pO2 ABG Hemoglobin ABG Oxyhemoglobin ABG Sodium ABG Potassium ABG Chloride ABG Glucose Carboxyhemoglobin Sodium Potassium 6.7 H* Chloride BUN Creatinine Glucose POC Glucose Calcium Phosphorus Magnesium AST ALT Total Creatine Kinase CK-MB (CK-2) Troponin T Total Protein Albumin HDL Cholesterol TSH Free T3 Index Arterial Blood Glucose Arterial Blood Ionized Calcium Urine pH 9.0 H Urine WBC (Auto) Urine Creatinine 24.4 H Acetaminophen Crossmatch 04/16/21 04/16/21 04/16/21 03:43 03:55 05:02 WBC 21.2 H RBC Hgb Hct 43.4 H MCV 98 H MCH RDW Plt Count Lymph % (Auto) [place] % (Auto) [place] # (Auto) Seg Neutrophils % Seg Neuts % (Manual) 84.0 H Lymphocytes % (Manual) 2.0 L Monocytes % (Manual) 10.0 H Seg Neutrophils # Seg Neutrophils # Man 17.8 H Lymphocytes # (Manual) 0.4 L Monocytes # (Manual) 2.1 H ABG pH 7.461 H POC ABG pCO2 POC ABG pO2 ABG Hemoglobin ABG Oxyhemoglobin ABG Sodium 126.8 L ABG Potassium 5.4 H ABG Chloride 90.0 L ABG Glucose 325 H Carboxyhemoglobin Sodium Potassium Chloride BUN Creatinine Glucose POC Glucose 391 H Calcium Phosphorus Magnesium AST ALT Total Creatine Kinase CK-MB (CK-2) Troponin T Total Protein Albumin HDL Cholesterol TSH Free T3 Index Arterial Blood Glucose 325 H Arterial Blood Ionized Calcium Urine pH Urine WBC (Auto) Urine Creatinine Acetaminophen Crossmatch 04/16/21 04/16/21 04/16/21 05:02 11:34 16:09 WBC RBC Hgb Hct MCV MCH RDW Plt Count Lymph % (Auto) [place] % (Auto) [place] # (Auto) Seg Neutrophils % Seg Neuts % (Manual) Lymphocytes % (Manual) Monocytes % (Manual) Seg Neutrophils # Seg Neutrophils # Man Lymphocytes # (Manual) Monocytes # (Manual) ABG pH POC ABG pCO2 POC ABG pO2 ABG Hemoglobin ABG Oxyhemoglobin ABG Sodium ABG Potassium ABG Chloride ABG Glucose Carboxyhemoglobin Sodium 131 L Potassium 5.9 H Chloride 88.7 L BUN 34 H Creatinine 2.9 H Glucose 249 H POC Glucose 382 H 300 H Calcium 10.4 H Phosphorus Magnesium AST 65 H ALT Total Creatine Kinase CK-MB (CK-2) Troponin T Total Protein Albumin 3.8 L HDL Cholesterol TSH Free T3 Index Arterial Blood Glucose Arterial Blood Ionized Calcium Urine pH Urine WBC (Auto) Urine Creatinine Acetaminophen Crossmatch 04/16/21 04/16/21 04/16/21 18:15 19:01 19:01 WBC RBC Hgb Hct MCV MCH RDW Plt Count Lymph % (Auto) [place] % (Auto) [place] # (Auto) Seg Neutrophils % Seg Neuts % (Manual) Lymphocytes % (Manual) Monocytes % (Manual) Seg Neutrophils # Seg Neutrophils # Man Lymphocytes # (Manual) Monocytes # (Manual) ABG pH POC ABG pCO2 POC ABG pO2 ABG Hemoglobin ABG Oxyhemoglobin ABG Sodium ABG Potassium ABG Chloride ABG Glucose Carboxyhemoglobin Sodium 125 L Potassium 5.5 H Chloride 84.5 L BUN 37 H Creatinine 3.5 H Glucose 236 H POC Glucose 287 H Calcium Phosphorus Magnesium AST ALT Total Creatine Kinase CK-MB (CK-2) Troponin T Total Protein Albumin HDL Cholesterol TSH Free T3 Index 1.1 L Arterial Blood Glucose Arterial Blood Ionized Calcium Urine pH Urine WBC (Auto) Urine Creatinine Acetaminophen Crossmatch 04/16/21 04/16/21 04/17/21 19:01 23:48 03:09 WBC RBC Hgb Hct MCV MCH RDW Plt Count Lymph % (Auto) [place] % (Auto) [place] # (Auto) Seg Neutrophils % Seg Neuts % (Manual) Lymphocytes % (Manual) Monocytes % (Manual) Seg Neutrophils # Seg Neutrophils # Man Lymphocytes # (Manual) Monocytes # (Manual) ABG pH 7.518 H POC ABG pCO2 POC ABG pO2 ABG Hemoglobin ABG Oxyhemoglobin ABG Sodium 126.4 L ABG Potassium ABG Chloride 89.0 L ABG Glucose 200 H Carboxyhemoglobin Sodium Potassium 5.6 H Chloride BUN Creatinine Glucose POC Glucose 243 H Calcium Phosphorus Magnesium AST ALT Total Creatine Kinase CK-MB (CK-2) Troponin T Total Protein Albumin HDL Cholesterol TSH Free T3 Index Arterial Blood Glucose 200 H Arterial Blood Ionized Calcium 4.4 L Urine pH Urine WBC (Auto) Urine Creatinine Acetaminophen Crossmatch 04/17/21 04/17/21 04/17/21 05:04 06:14 11:55 WBC RBC Hgb Hct MCV MCH RDW Plt Count Lymph % (Auto) [place] % (Auto) [place] # (Auto) Seg Neutrophils % Seg Neuts % (Manual) Lymphocytes % (Manual) Monocytes % (Manual) Seg Neutrophils # Seg Neutrophils # Man Lymphocytes # (Manual) Monocytes # (Manual) ABG pH POC ABG pCO2 POC ABG pO2 ABG Hemoglobin ABG Oxyhemoglobin ABG Sodium ABG Potassium ABG Chloride ABG Glucose Carboxyhemoglobin Sodium 129 L Potassium Chloride 86.1 L BUN 39 H Creatinine 3.5 H Glucose 202 H POC Glucose 208 H 276 H Calcium Phosphorus Magnesium AST ALT Total Creatine Kinase 750 H CK-MB (CK-2) Troponin T 0.119 H* D Total Protein Albumin HDL Cholesterol 61 H TSH Free T3 Index Arterial Blood Glucose Arterial Blood Ionized Calcium Urine pH Urine WBC (Auto) Urine Creatinine Acetaminophen Crossmatch 04/17/21 04/17/21 04/17/21 15:35 15:35 17:07 WBC 17.1 H RBC Hgb Hct MCV MCH RDW Plt Count Lymph % (Auto) [place] % (Auto) [place] # (Auto) Seg Neutrophils % Seg Neuts % (Manual) Lymphocytes % (Manual) Monocytes % (Manual) Seg Neutrophils # Seg Neutrophils # Man Lymphocytes # (Manual) Monocytes # (Manual) ABG pH POC ABG pCO2 POC ABG pO2 ABG Hemoglobin ABG Oxyhemoglobin ABG Sodium ABG Potassium ABG Chloride ABG Glucose Carboxyhemoglobin Sodium Potassium Chloride BUN Creatinine Glucose POC Glucose 148 H Calcium Phosphorus Magnesium AST ALT Total Creatine Kinase 615 H CK-MB (CK-2) 9.1 H Troponin T Total Protein Albumin HDL Cholesterol TSH Free T3 Index Arterial Blood Glucose Arterial Blood Ionized Calcium Urine pH Urine WBC (Auto) Urine Creatinine Acetaminophen Crossmatch 04/18/21 04/18/21 04/18/21 00:01 03:00 05:24 WBC RBC Hgb Hct MCV MCH RDW Plt Count Lymph % (Auto) [place] % (Auto) [place] # (Auto) Seg Neutrophils % Seg Neuts % (Manual) Lymphocytes % (Manual) Monocytes % (Manual) Seg Neutrophils # Seg Neutrophils # Man Lymphocytes # (Manual) Monocytes # (Manual) ABG pH 7.497 H POC ABG pCO2 POC ABG pO2 77.7 L ABG Hemoglobin 10.4 L ABG Oxyhemoglobin ABG Sodium 129.7 L ABG Potassium 2.8 L ABG Chloride 92.0 L ABG Glucose 134 H Carboxyhemoglobin 0.3 L Sodium Potassium Chloride BUN Creatinine Glucose POC Glucose 192 H 162 H Calcium Phosphorus Magnesium AST ALT Total Creatine Kinase CK-MB (CK-2) Troponin T Total Protein Albumin HDL Cholesterol TSH Free T3 Index Arterial Blood Glucose 134 H Arterial Blood Ionized Calcium 4.3 L Urine pH Urine WBC (Auto) Urine Creatinine Acetaminophen Crossmatch 04/18/21 04/18/21 04/18/21 05:34 05:34 05:43 WBC 15.3 H RBC 3.34 L Hgb Hct MCV MCH RDW 15.3 H Plt Count Lymph % (Auto) [place] % (Auto) [place] # (Auto) Seg Neutrophils % Seg Neuts % (Manual) Lymphocytes % (Manual) Monocytes % (Manual) Seg Neutrophils # Seg Neutrophils # Man Lymphocytes # (Manual) Monocytes # (Manual) ABG pH POC ABG pCO2 POC ABG pO2 ABG Hemoglobin ABG Oxyhemoglobin ABG Sodium ABG Potassium ABG Chloride ABG Glucose Carboxyhemoglobin Sodium 134 L Potassium 3.0 L D Chloride 93.5 L BUN 42 H Creatinine 3.1 H Glucose 152 H POC Glucose Calcium Phosphorus Magnesium 1.40 L AST ALT Total Creatine Kinase 427 H CK-MB (CK-2) Troponin T 0.081 H D Total Protein Albumin HDL Cholesterol TSH Free T3 Index Arterial Blood Glucose Arterial Blood Ionized Calcium Urine pH Urine WBC (Auto) Urine Creatinine Acetaminophen Crossmatch 04/18/21 04/18/21 04/18/21 09:11 11:34 17:24 WBC RBC Hgb Hct MCV MCH RDW Plt Count Lymph % (Auto) [place] % (Auto) [place] # (Auto) Seg Neutrophils % Seg Neuts % (Manual) Lymphocytes % (Manual) Monocytes % (Manual) Seg Neutrophils # Seg Neutrophils # Man Lymphocytes # (Manual) Monocytes # (Manual) ABG pH POC ABG pCO2 POC ABG pO2 ABG Hemoglobin ABG Oxyhemoglobin ABG Sodium ABG Potassium ABG Chloride ABG Glucose Carboxyhemoglobin Sodium Potassium Chloride BUN Creatinine Glucose POC Glucose 170 H 151 H Calcium Phosphorus Magnesium AST ALT Total Creatine Kinase CK-MB (CK-2) Troponin T Total Protein Albumin HDL Cholesterol TSH Free T3 Index Arterial Blood Glucose Arterial Blood Ionized Calcium Urine pH Urine WBC (Auto) 34.0 H Urine Creatinine Acetaminophen Crossmatch 04/18/21 04/19/21 04/19/21 23:18 04:09 05:19 WBC RBC Hgb Hct MCV MCH RDW Plt Count Lymph % (Auto) [place] % (Auto) [place] # (Auto) Seg Neutrophils % Seg Neuts % (Manual) Lymphocytes % (Manual) Monocytes % (Manual) Seg Neutrophils # Seg Neutrophils # Man Lymphocytes # (Manual) Monocytes # (Manual) ABG pH 7.476 H POC ABG pCO2 POC ABG pO2 79.4 L ABG Hemoglobin 10.7 L ABG Oxyhemoglobin ABG Sodium 131.2 L ABG Potassium 2.8 L ABG Chloride 94.0 L ABG Glucose 209 H Carboxyhemoglobin 0.3 L Sodium Potassium Chloride BUN Creatinine Glucose POC Glucose 182 H 204 H Calcium Phosphorus Magnesium AST ALT Total Creatine Kinase CK-MB (CK-2) Troponin T Total Protein Albumin HDL Cholesterol TSH Free T3 Index Arterial Blood Glucose 209 H Arterial Blood Ionized Calcium Urine pH Urine WBC (Auto) Urine Creatinine Acetaminophen Crossmatch 04/19/21 04/19/21 04/19/21 07:30 07:30 10:35 WBC 14.8 H RBC 3.20 L Hgb Hct MCV 98 H MCH RDW Plt Count 137 L Lymph % (Auto) [place] % (Auto) [place] # (Auto) Seg Neutrophils % Seg Neuts % (Manual) Lymphocytes % (Manual) Monocytes % (Manual) Seg Neutrophils # Seg Neutrophils # Man Lymphocytes # (Manual) Monocytes # (Manual) ABG pH 7.464 H POC ABG pCO2 POC ABG pO2 81.8 L ABG Hemoglobin 10.8 L ABG Oxyhemoglobin ABG Sodium 129.6 L ABG Potassium ABG Chloride 95.0 L ABG Glucose 238 H Carboxyhemoglobin Sodium 133 L Potassium 2.8 L* Chloride 94.4 L BUN 43 H Creatinine 2.7 H Glucose 255 H POC Glucose Calcium 8.0 L Phosphorus Magnesium AST ALT Total Creatine Kinase CK-MB (CK-2) Troponin T 0.060 H D Total Protein Albumin HDL Cholesterol TSH Free T3 Index Arterial Blood Glucose 238 H Arterial Blood Ionized Calcium Urine pH Urine WBC (Auto) Urine Creatinine Acetaminophen Crossmatch 04/19/21 04/19/21 04/19/21 11:48 20:40 23:04 WBC RBC Hgb Hct MCV MCH RDW Plt Count Lymph % (Auto) [place] % (Auto) [place] # (Auto) Seg Neutrophils % Seg Neuts % (Manual) Lymphocytes % (Manual) Monocytes % (Manual) Seg Neutrophils # Seg Neutrophils # Man Lymphocytes # (Manual) Monocytes # (Manual) ABG pH POC ABG pCO2 POC ABG pO2 ABG Hemoglobin ABG Oxyhemoglobin ABG Sodium ABG Potassium ABG Chloride ABG Glucose Carboxyhemoglobin Sodium Potassium 3.4 L D Chloride BUN Creatinine Glucose POC Glucose 208 H 173 H Calcium Phosphorus Magnesium AST ALT Total Creatine Kinase CK-MB (CK-2) Troponin T Total Protein Albumin HDL Cholesterol TSH Free T3 Index Arterial Blood Glucose Arterial Blood Ionized Calcium Urine pH Urine WBC (Auto) Urine Creatinine Acetaminophen Crossmatch 04/20/21 04/20/21 04/20/21 02:56 03:32 03:32 WBC 13.2 H RBC 3.18 L Hgb Hct MCV MCH RDW Plt Count Lymph % (Auto) [place] % (Auto) [place] # (Auto) Seg Neutrophils % Seg Neuts % (Manual) Lymphocytes % (Manual) Monocytes % (Manual) Seg Neutrophils # Seg Neutrophils # Man Lymphocytes # (Manual) Monocytes # (Manual) ABG pH 7.526 H POC ABG pCO2 POC ABG pO2 ABG Hemoglobin 10.5 L ABG Oxyhemoglobin ABG Sodium 133.5 L ABG Potassium ABG Chloride ABG Glucose 157 H Carboxyhemoglobin 0.3 L Sodium 135 L Potassium Chloride 96.7 L BUN 40 H Creatinine 2.3 H Glucose 142 H POC Glucose Calcium Phosphorus Magnesium AST ALT Total Creatine Kinase CK-MB (CK-2) Troponin T 0.065 H Total Protein Albumin HDL Cholesterol TSH Free T3 Index Arterial Blood Glucose 157 H Arterial Blood Ionized Calcium Urine pH Urine WBC (Auto) Urine Creatinine Acetaminophen Crossmatch 04/20/21 04/20/21 04/20/21 03:46 05:42 11:50 WBC RBC Hgb Hct MCV MCH RDW Plt Count Lymph % (Auto) [place] % (Auto) [place] # (Auto) Seg Neutrophils % Seg Neuts % (Manual) Lymphocytes % (Manual) Monocytes % (Manual) Seg Neutrophils # Seg Neutrophils # Man Lymphocytes # (Manual) Monocytes # (Manual) ABG pH POC ABG pCO2 POC ABG pO2 ABG Hemoglobin ABG Oxyhemoglobin ABG Sodium ABG Potassium ABG Chloride ABG Glucose Carboxyhemoglobin Sodium Potassium Chloride BUN Creatinine Glucose POC Glucose 160 H 194 H Calcium Phosphorus 2.10 L Magnesium AST ALT Total Creatine Kinase CK-MB (CK-2) Troponin T Total Protein Albumin HDL Cholesterol TSH Free T3 Index Arterial Blood Glucose Arterial Blood Ionized Calcium Urine pH Urine WBC (Auto) Urine Creatinine Acetaminophen Crossmatch 04/20/21 04/20/21 04/21/21 17:09 23:18 05:26 WBC RBC Hgb Hct MCV MCH RDW Plt Count Lymph % (Auto) [place] % (Auto) [place] # (Auto) Seg Neutrophils % Seg Neuts % (Manual) Lymphocytes % (Manual) Monocytes % (Manual) Seg Neutrophils # Seg Neutrophils # Man Lymphocytes # (Manual) Monocytes # (Manual) ABG pH POC ABG pCO2 POC ABG pO2 ABG Hemoglobin ABG Oxyhemoglobin ABG Sodium ABG Potassium ABG Chloride ABG Glucose Carboxyhemoglobin Sodium Potassium Chloride BUN Creatinine Glucose POC Glucose 153 H 162 H 164 H Calcium Phosphorus Magnesium AST ALT Total Creatine Kinase CK-MB (CK-2) Troponin T Total Protein Albumin HDL Cholesterol TSH Free T3 Index Arterial Blood Glucose Arterial Blood Ionized Calcium Urine pH Urine WBC (Auto) Urine Creatinine Acetaminophen Crossmatch 04/21/21 04/21/21 04/21/21 05:51 05:51 12:12 WBC RBC 3.20 L Hgb Hct MCV 99 H MCH RDW 15.3 H Plt Count Lymph % (Auto) [place] % (Auto) [place] # (Auto) Seg Neutrophils % Seg Neuts % (Manual) Lymphocytes % (Manual) Monocytes % (Manual) Seg Neutrophils # Seg Neutrophils # Man Lymphocytes # (Manual) Monocytes # (Manual) ABG pH POC ABG pCO2 POC ABG pO2 ABG Hemoglobin ABG Oxyhemoglobin ABG Sodium ABG Potassium ABG Chloride ABG Glucose Carboxyhemoglobin Sodium Potassium Chloride 96.6 L BUN 42 H Creatinine 2.1 H Glucose 171 H POC Glucose 167 H Calcium Phosphorus Magnesium AST ALT Total Creatine Kinase CK-MB (CK-2) Troponin T Total Protein Albumin HDL Cholesterol TSH Free T3 Index Arterial Blood Glucose Arterial Blood Ionized Calcium Urine pH Urine WBC (Auto) Urine Creatinine Acetaminophen Crossmatch 04/21/21 04/21/21 04/22/21 17:13 23:42 05:29 WBC RBC Hgb Hct MCV MCH RDW Plt Count Lymph % (Auto) [place] % (Auto) [place] # (Auto) Seg Neutrophils % Seg Neuts % (Manual) Lymphocytes % (Manual) Monocytes % (Manual) Seg Neutrophils # Seg Neutrophils # Man Lymphocytes # (Manual) Monocytes # (Manual) ABG pH POC ABG pCO2 POC ABG pO2 ABG Hemoglobin ABG Oxyhemoglobin ABG Sodium ABG Potassium ABG Chloride ABG Glucose Carboxyhemoglobin Sodium Potassium Chloride BUN Creatinine Glucose POC Glucose 178 H 253 H 208 H Calcium Phosphorus Magnesium AST ALT Total Creatine Kinase CK-MB (CK-2) Troponin T Total Protein Albumin HDL Cholesterol TSH Free T3 Index Arterial Blood Glucose Arterial Blood Ionized Calcium Urine pH Urine WBC (Auto) Urine Creatinine Acetaminophen Crossmatch 04/22/21 04/22/21 04/22/21 08:00 08:00 12:06 WBC 12.9 H RBC Hgb Hct MCV MCH RDW Plt Count Lymph % (Auto) [place] % (Auto) [place] # (Auto) Seg Neutrophils % Seg Neuts % (Manual) Lymphocytes % (Manual) Monocytes % (Manual) Seg Neutrophils # Seg Neutrophils # Man Lymphocytes # (Manual) Monocytes # (Manual) ABG pH POC ABG pCO2 POC ABG pO2 ABG Hemoglobin ABG Oxyhemoglobin ABG Sodium ABG Potassium ABG Chloride ABG Glucose Carboxyhemoglobin Sodium Potassium Chloride BUN 47 H Creatinine 1.9 H Glucose 252 H POC Glucose 298 H Calcium Phosphorus Magnesium AST ALT Total Creatine Kinase CK-MB (CK-2) Troponin T Total Protein Albumin HDL Cholesterol TSH Free T3 Index Arterial Blood Glucose Arterial Blood Ionized Calcium Urine pH Urine WBC (Auto) Urine Creatinine Acetaminophen Crossmatch 04/22/21 04/22/21 04/23/21 17:34 23:01 05:08 WBC RBC Hgb Hct MCV MCH RDW Plt Count Lymph % (Auto) [place] % (Auto) [place] # (Auto) Seg Neutrophils % Seg Neuts % (Manual) Lymphocytes % (Manual) Monocytes % (Manual) Seg Neutrophils # Seg Neutrophils # Man Lymphocytes # (Manual) Monocytes # (Manual) ABG pH POC ABG pCO2 POC ABG pO2 ABG Hemoglobin ABG Oxyhemoglobin ABG Sodium ABG Potassium ABG Chloride ABG Glucose Carboxyhemoglobin Sodium Potassium Chloride BUN Creatinine Glucose POC Glucose 259 H 280 H 223 H Calcium Phosphorus Magnesium AST ALT Total Creatine Kinase CK-MB (CK-2) Troponin T Total Protein Albumin HDL Cholesterol TSH Free T3 Index Arterial Blood Glucose Arterial Blood Ionized Calcium Urine pH Urine WBC (Auto) Urine Creatinine Acetaminophen Crossmatch 04/23/21 04/23/21 04/23/21 07:02 11:57 17:33 WBC RBC Hgb Hct MCV MCH RDW Plt Count Lymph % (Auto) [place] % (Auto) [place] # (Auto) Seg Neutrophils % Seg Neuts % (Manual) Lymphocytes % (Manual) Monocytes % (Manual) Seg Neutrophils # Seg Neutrophils # Man Lymphocytes # (Manual) Monocytes # (Manual) ABG pH POC ABG pCO2 POC ABG pO2 ABG Hemoglobin ABG Oxyhemoglobin ABG Sodium ABG Potassium ABG Chloride ABG Glucose Carboxyhemoglobin Sodium Potassium Chloride 97.7 L BUN 57 H Creatinine 2.0 H Glucose 253 H POC Glucose 310 H 235 H Calcium Phosphorus Magnesium AST ALT Total Creatine Kinase CK-MB (CK-2) Troponin T Total Protein Albumin HDL Cholesterol TSH Free T3 Index Arterial Blood Glucose Arterial Blood Ionized Calcium Urine pH Urine WBC (Auto) Urine Creatinine Acetaminophen Crossmatch 04/23/21 04/24/21 04/24/21 23:15 05:23 05:46 WBC RBC Hgb Hct MCV MCH RDW Plt Count Lymph % (Auto) [place] % (Auto) [place] # (Auto) Seg Neutrophils % Seg Neuts % (Manual) Lymphocytes % (Manual) Monocytes % (Manual) Seg Neutrophils # Seg Neutrophils # Man Lymphocytes # (Manual) Monocytes # (Manual) ABG pH POC ABG pCO2 POC ABG pO2 ABG Hemoglobin ABG Oxyhemoglobin ABG Sodium ABG Potassium ABG Chloride ABG Glucose Carboxyhemoglobin Sodium Potassium 5.2 H D Chloride BUN 68 H Creatinine 2.3 H Glucose 277 H POC Glucose 197 H 274 H Calcium Phosphorus Magnesium AST ALT Total Creatine Kinase CK-MB (CK-2) Troponin T Total Protein Albumin HDL Cholesterol TSH Free T3 Index Arterial Blood Glucose Arterial Blood Ionized Calcium Urine pH Urine WBC (Auto) Urine Creatinine Acetaminophen Crossmatch 04/24/21 04/24/21 04/24/21 11:33 11:52 17:49 WBC RBC Hgb Hct MCV MCH RDW Plt Count Lymph % (Auto) [place] % (Auto) [place] # (Auto) Seg Neutrophils % Seg Neuts % (Manual) Lymphocytes % (Manual) Monocytes % (Manual) Seg Neutrophils # Seg Neutrophils # Man Lymphocytes # (Manual) Monocytes # (Manual) ABG pH POC ABG pCO2 POC ABG pO2 72.7 L ABG Hemoglobin 11.6 L ABG Oxyhemoglobin 92.9 L ABG Sodium ABG Potassium ABG Chloride ABG Glucose 269 H Carboxyhemoglobin Sodium Potassium Chloride BUN Creatinine Glucose POC Glucose 223 H 252 H Calcium Phosphorus Magnesium AST ALT Total Creatine Kinase CK-MB (CK-2) Troponin T Total Protein Albumin HDL Cholesterol TSH Free T3 Index Arterial Blood Glucose 269 H Arterial Blood Ionized Calcium Urine pH Urine WBC (Auto) Urine Creatinine Acetaminophen Crossmatch 04/24/21 04/24/21 04/25/21 21:00 23:48 03:06 WBC RBC Hgb Hct MCV MCH RDW Plt Count Lymph % (Auto) [place] % (Auto) [place] # (Auto) Seg Neutrophils % Seg Neuts % (Manual) Lymphocytes % (Manual) Monocytes % (Manual) Seg Neutrophils # Seg Neutrophils # Man Lymphocytes # (Manual) Monocytes # (Manual) ABG pH 7.521 H 7.451 H POC ABG pCO2 POC ABG pO2 80.7 L 77.1 L ABG Hemoglobin 10.4 L 11.2 L ABG Oxyhemoglobin ABG Sodium ABG Potassium ABG Chloride ABG Glucose 186 H 165 H Carboxyhemoglobin 0 L Sodium Potassium Chloride BUN Creatinine Glucose POC Glucose 141 H Calcium Phosphorus Magnesium AST ALT Total Creatine Kinase CK-MB (CK-2) Troponin T Total Protein Albumin HDL Cholesterol TSH Free T3 Index Arterial Blood Glucose 186 H 165 H Arterial Blood Ionized Calcium Urine pH Urine WBC (Auto) Urine Creatinine Acetaminophen Crossmatch 04/25/21 04/25/21 04/25/21 03:56 03:56 06:03 WBC 12.3 H RBC 3.40 L Hgb Hct MCV MCH RDW Plt Count Lymph % (Auto) [place] % (Auto) [place] # (Auto) Seg Neutrophils % Seg Neuts % (Manual) Lymphocytes % (Manual) Monocytes % (Manual) Seg Neutrophils # Seg Neutrophils # Man Lymphocytes # (Manual) Monocytes # (Manual) ABG pH POC ABG pCO2 POC ABG pO2 ABG Hemoglobin ABG Oxyhemoglobin ABG Sodium ABG Potassium ABG Chloride ABG Glucose Carboxyhemoglobin Sodium Potassium Chloride BUN 78 H Creatinine 2.5 H Glucose 152 H POC Glucose 171 H Calcium Phosphorus Magnesium AST ALT Total Creatine Kinase CK-MB (CK-2) Troponin T Total Protein Albumin HDL Cholesterol TSH Free T3 Index Arterial Blood Glucose Arterial Blood Ionized Calcium Urine pH Urine WBC (Auto) Urine Creatinine Acetaminophen Crossmatch 04/25/21 04/25/21 04/26/21 11:43 15:37 00:05 WBC RBC Hgb Hct MCV MCH RDW Plt Count Lymph % (Auto) [place] % (Auto) [place] # (Auto) Seg Neutrophils % Seg Neuts % (Manual) Lymphocytes % (Manual) Monocytes % (Manual) Seg Neutrophils # Seg Neutrophils # Man Lymphocytes # (Manual) Monocytes # (Manual) ABG pH POC ABG pCO2 POC ABG pO2 ABG Hemoglobin ABG Oxyhemoglobin ABG Sodium ABG Potassium ABG Chloride ABG Glucose Carboxyhemoglobin Sodium Potassium Chloride BUN Creatinine Glucose POC Glucose 181 H 167 H 144 H Calcium Phosphorus Magnesium AST ALT Total Creatine Kinase CK-MB (CK-2) Troponin T Total Protein Albumin HDL Cholesterol TSH Free T3 Index Arterial Blood Glucose Arterial Blood Ionized Calcium Urine pH Urine WBC (Auto) Urine Creatinine Acetaminophen Crossmatch 04/26/21 04/26/21 04/26/21 04:30 05:44 09:30 WBC RBC Hgb Hct MCV MCH RDW Plt Count Lymph % (Auto) [place] % (Auto) [place] # (Auto) Seg Neutrophils % Seg Neuts % (Manual) Lymphocytes % (Manual) Monocytes % (Manual) Seg Neutrophils # Seg Neutrophils # Man Lymphocytes # (Manual) Monocytes # (Manual) ABG pH 7.529 H POC ABG pCO2 POC ABG pO2 66.1 L ABG Hemoglobin 11.2 L ABG Oxyhemoglobin 92.8 L ABG Sodium ABG Potassium ABG Chloride ABG Glucose 216 H Carboxyhemoglobin 0.3 L Sodium Potassium Chloride BUN 82 H Creatinine 2.7 H Glucose 238 H POC Glucose 202 H Calcium Phosphorus Magnesium AST ALT Total Creatine Kinase CK-MB (CK-2) Troponin T Total Protein Albumin HDL Cholesterol TSH Free T3 Index Arterial Blood Glucose 216 H Arterial Blood Ionized Calcium Urine pH Urine WBC (Auto) Urine Creatinine Acetaminophen Crossmatch 04/26/21 04/26/21 04/26/21 09:30 11:32 17:21 WBC 24.7 H RBC 3.32 L Hgb Hct MCV MCH RDW Plt Count Lymph % (Auto) [place] % (Auto) [place] # (Auto) Seg Neutrophils % Seg Neuts % (Manual) Lymphocytes % (Manual) Monocytes % (Manual) Seg Neutrophils # Seg Neutrophils # Man Lymphocytes # (Manual) Monocytes # (Manual) ABG pH POC ABG pCO2 POC ABG pO2 ABG Hemoglobin ABG Oxyhemoglobin ABG Sodium ABG Potassium ABG Chloride ABG Glucose Carboxyhemoglobin Sodium Potassium Chloride BUN Creatinine Glucose POC Glucose 245 H 264 H Calcium Phosphorus Magnesium AST ALT Total Creatine Kinase CK-MB (CK-2) Troponin T Total Protein Albumin HDL Cholesterol TSH Free T3 Index Arterial Blood Glucose Arterial Blood Ionized Calcium Urine pH Urine WBC (Auto) Urine Creatinine Acetaminophen Crossmatch 04/26/21 04/27/21 04/27/21 23:18 04:23 04:54 WBC RBC Hgb Hct MCV MCH RDW Plt Count Lymph % (Auto) [place] % (Auto) [place] # (Auto) Seg Neutrophils % Seg Neuts % (Manual) Lymphocytes % (Manual) Monocytes % (Manual) Seg Neutrophils # Seg Neutrophils # Man Lymphocytes # (Manual) Monocytes # (Manual) ABG pH 7.549 H POC ABG pCO2 30.0 L POC ABG pO2 64.9 L ABG Hemoglobin 11 L ABG Oxyhemoglobin 93.3 L ABG Sodium ABG Potassium ABG Chloride ABG Glucose 325 H Carboxyhemoglobin 0.3 L Sodium Potassium Chloride BUN Creatinine Glucose POC Glucose 201 H 298 H Calcium Phosphorus Magnesium AST ALT Total Creatine Kinase CK-MB (CK-2) Troponin T Total Protein Albumin HDL Cholesterol TSH Free T3 Index Arterial Blood Glucose 325 H Arterial Blood Ionized Calcium Urine pH Urine WBC (Auto) Urine Creatinine Acetaminophen Crossmatch 04/27/21 04/27/21 04/27/21 07:52 07:52 11:22 WBC 23.0 H RBC 3.32 L Hgb Hct MCV MCH RDW 15.5 H Plt Count Lymph % (Auto) [place] % (Auto) [place] # (Auto) Seg Neutrophils % Seg Neuts % (Manual) Lymphocytes % (Manual) Monocytes % (Manual) Seg Neutrophils # Seg Neutrophils # Man Lymphocytes # (Manual) Monocytes # (Manual) ABG pH POC ABG pCO2 POC ABG pO2 ABG Hemoglobin ABG Oxyhemoglobin ABG Sodium ABG Potassium ABG Chloride ABG Glucose Carboxyhemoglobin Sodium Potassium 3.5 L Chloride BUN 90 H Creatinine 2.8 H Glucose 286 H POC Glucose 251 H Calcium Phosphorus Magnesium AST ALT Total Creatine Kinase CK-MB (CK-2) Troponin T Total Protein Albumin HDL Cholesterol TSH Free T3 Index Arterial Blood Glucose Arterial Blood Ionized Calcium Urine pH Urine WBC (Auto) Urine Creatinine Acetaminophen Crossmatch 04/27/21 04/27/21 04/27/21 17:21 17:45 23:05 WBC RBC Hgb Hct MCV MCH RDW Plt Count Lymph % (Auto) [place] % (Auto) [place] # (Auto) Seg Neutrophils % Seg Neuts % (Manual) Lymphocytes % (Manual) Monocytes % (Manual) Seg Neutrophils # Seg Neutrophils # Man Lymphocytes # (Manual) Monocytes # (Manual) ABG pH POC ABG pCO2 POC ABG pO2 ABG Hemoglobin ABG Oxyhemoglobin ABG Sodium ABG Potassium ABG Chloride ABG Glucose Carboxyhemoglobin Sodium Potassium Chloride BUN Creatinine Glucose POC Glucose 180 H 178 H 189 H Calcium Phosphorus Magnesium AST ALT Total Creatine Kinase CK-MB (CK-2) Troponin T Total Protein Albumin HDL Cholesterol TSH Free T3 Index Arterial Blood Glucose Arterial Blood Ionized Calcium Urine pH Urine WBC (Auto) Urine Creatinine Acetaminophen Crossmatch 04/28/21 04/28/21 04/28/21 03:14 04:13 04:13 WBC 17.6 H RBC 3.03 L Hgb 9.7 L Hct 29.5 L MCV MCH RDW Plt Count Lymph % (Auto) [place] % (Auto) [place] # (Auto) Seg Neutrophils % Seg Neuts % (Manual) Lymphocytes % (Manual) Monocytes % (Manual) Seg Neutrophils # Seg Neutrophils # Man Lymphocytes # (Manual) Monocytes # (Manual) ABG pH 7.507 H POC ABG pCO2 POC ABG pO2 62.0 L ABG Hemoglobin 10.2 L ABG Oxyhemoglobin 91.9 L ABG Sodium ABG Potassium ABG Chloride ABG Glucose 337 H Carboxyhemoglobin 0.2 L Sodium Potassium Chloride BUN 101 H Creatinine 3.1 H Glucose 304 H POC Glucose Calcium Phosphorus Magnesium AST 61 H ALT 64 H Total Creatine Kinase CK-MB (CK-2) Troponin T Total Protein 6.2 L Albumin 2.6 L HDL Cholesterol TSH Free T3 Index Arterial Blood Glucose 337 H Arterial Blood Ionized Calcium Urine pH Urine WBC (Auto) Urine Creatinine Acetaminophen Crossmatch 04/28/21 04/28/21 04/28/21 05:01 11:28 18:23 WBC RBC Hgb Hct MCV MCH RDW Plt Count Lymph % (Auto) [place] % (Auto) [place] # (Auto) Seg Neutrophils % Seg Neuts % (Manual) Lymphocytes % (Manual) Monocytes % (Manual) Seg Neutrophils # Seg Neutrophils # Man Lymphocytes # (Manual) Monocytes # (Manual) ABG pH POC ABG pCO2 POC ABG pO2 ABG Hemoglobin ABG Oxyhemoglobin ABG Sodium ABG Potassium ABG Chloride ABG Glucose Carboxyhemoglobin Sodium Potassium Chloride BUN Creatinine Glucose POC Glucose 282 H 263 H 200 H Calcium Phosphorus Magnesium AST ALT Total Creatine Kinase CK-MB (CK-2) Troponin T Total Protein Albumin HDL Cholesterol TSH Free T3 Index Arterial Blood Glucose Arterial Blood Ionized Calcium Urine pH Urine WBC (Auto) Urine Creatinine Acetaminophen Crossmatch 04/28/21 04/29/21 04/29/21 23:49 03:24 04:22 WBC RBC Hgb Hct MCV MCH RDW Plt Count Lymph % (Auto) [place] % (Auto) [place] # (Auto) Seg Neutrophils % Seg Neuts % (Manual) Lymphocytes % (Manual) Monocytes % (Manual) Seg Neutrophils # Seg Neutrophils # Man Lymphocytes # (Manual) Monocytes # (Manual) ABG pH 7.546 H POC ABG pCO2 POC ABG pO2 52.4 L ABG Hemoglobin 10.5 L ABG Oxyhemoglobin 88.3 L ABG Sodium ABG Potassium ABG Chloride ABG Glucose 217 H Carboxyhemoglobin 0.4 L Sodium 148 H Potassium Chloride BUN 110 H Creatinine 3.1 H Glucose 208 H POC Glucose 238 H Calcium Phosphorus Magnesium AST ALT Total Creatine Kinase CK-MB (CK-2) Troponin T Total Protein Albumin HDL Cholesterol TSH Free T3 Index Arterial Blood Glucose 217 H Arterial Blood Ionized Calcium Urine pH Urine WBC (Auto) Urine Creatinine Acetaminophen Crossmatch 04/29/21 04/29/21 04/29/21 04:22 05:08 11:26 WBC 15.2 H RBC 3.30 L Hgb 9.8 L Hct MCV MCH RDW Plt Count Lymph % (Auto) [place] % (Auto) [place] # (Auto) Seg Neutrophils % Seg Neuts % (Manual) Lymphocytes % (Manual) Monocytes % (Manual) Seg Neutrophils # Seg Neutrophils # Man Lymphocytes # (Manual) Monocytes # (Manual) ABG pH POC ABG pCO2 POC ABG pO2 ABG Hemoglobin ABG Oxyhemoglobin ABG Sodium ABG Potassium ABG Chloride ABG Glucose Carboxyhemoglobin Sodium Potassium Chloride BUN Creatinine Glucose POC Glucose 181 H 218 H Calcium Phosphorus Magnesium AST ALT Total Creatine Kinase CK-MB (CK-2) Troponin T Total Protein Albumin HDL Cholesterol TSH Free T3 Index Arterial Blood Glucose Arterial Blood Ionized Calcium Urine pH Urine WBC (Auto) Urine Creatinine Acetaminophen Crossmatch 04/29/21 04/29/21 04/30/21 17:06 23:06 03:58 WBC RBC Hgb Hct MCV MCH RDW Plt Count Lymph % (Auto) [place] % (Auto) [place] # (Auto) Seg Neutrophils % Seg Neuts % (Manual) Lymphocytes % (Manual) Monocytes % (Manual) Seg Neutrophils # Seg Neutrophils # Man Lymphocytes # (Manual) Monocytes # (Manual) ABG pH 7.547 H POC ABG pCO2 31.3 L POC ABG pO2 58.4 L ABG Hemoglobin 9.6 L ABG Oxyhemoglobin 91.1 L ABG Sodium ABG Potassium ABG Chloride 108.0 H ABG Glucose 248 H Carboxyhemoglobin 0.2 L Sodium Potassium Chloride BUN Creatinine Glucose POC Glucose 223 H 252 H Calcium Phosphorus Magnesium AST ALT Total Creatine Kinase CK-MB (CK-2) Troponin T Total Protein Albumin HDL Cholesterol TSH Free T3 Index Arterial Blood Glucose 248 H Arterial Blood Ionized Calcium Urine pH Urine WBC (Auto) Urine Creatinine Acetaminophen Crossmatch 04/30/21 04/30/21 04/30/21 05:23 05:54 11:47 WBC RBC Hgb Hct MCV MCH RDW Plt Count Lymph % (Auto) [place] % (Auto) [place] # (Auto) Seg Neutrophils % Seg Neuts % (Manual) Lymphocytes % (Manual) Monocytes % (Manual) Seg Neutrophils # Seg Neutrophils # Man Lymphocytes # (Manual) Monocytes # (Manual) ABG pH POC ABG pCO2 POC ABG pO2 ABG Hemoglobin ABG Oxyhemoglobin ABG Sodium ABG Potassium ABG Chloride ABG Glucose Carboxyhemoglobin Sodium Potassium Chloride BUN 118 H Creatinine 3.3 H Glucose 263 H POC Glucose 244 H 237 H Calcium Phosphorus Magnesium AST ALT Total Creatine Kinase CK-MB (CK-2) Troponin T Total Protein Albumin HDL Cholesterol TSH Free T3 Index Arterial Blood Glucose Arterial Blood Ionized Calcium Urine pH Urine WBC (Auto) Urine Creatinine Acetaminophen Crossmatch 04/30/21 04/30/21 04/30/21 17:26 17:45 23:51 WBC RBC Hgb Hct MCV MCH RDW Plt Count Lymph % (Auto) [place] % (Auto) [place] # (Auto) Seg Neutrophils % Seg Neuts % (Manual) Lymphocytes % (Manual) Monocytes % (Manual) Seg Neutrophils # Seg Neutrophils # Man Lymphocytes # (Manual) Monocytes # (Manual) ABG pH POC ABG pCO2 POC ABG pO2 ABG Hemoglobin ABG Oxyhemoglobin ABG Sodium ABG Potassium ABG Chloride ABG Glucose Carboxyhemoglobin Sodium Potassium Chloride BUN Creatinine Glucose POC Glucose 193 H 197 H Calcium Phosphorus Magnesium AST ALT Total Creatine Kinase CK-MB (CK-2) Troponin T Total Protein Albumin HDL Cholesterol TSH Free T3 Index Arterial Blood Glucose Arterial Blood Ionized Calcium Urine pH Urine WBC (Auto) 48.0 H Urine Creatinine Acetaminophen Crossmatch 05/01/21 05/01/21 05/01/21 04:02 04:57 07:11 WBC 12.3 H RBC 2.83 L Hgb 8.8 L Hct 27.3 L MCV MCH RDW Plt Count Lymph % (Auto) [place] % (Auto) [place] # (Auto) Seg Neutrophils % Seg Neuts % (Manual) 80.0 H Lymphocytes % (Manual) 5.0 L Monocytes % (Manual) Seg Neutrophils # Seg Neutrophils # Man 9.8 H Lymphocytes # (Manual) 0.6 L Monocytes # (Manual) ABG pH 7.466 H POC ABG pCO2 POC ABG pO2 61.4 L ABG Hemoglobin 9.0 L ABG Oxyhemoglobin 91.1 L ABG Sodium ABG Potassium ABG Chloride 110.0 H ABG Glucose 245 H Carboxyhemoglobin Sodium Potassium Chloride BUN Creatinine Glucose POC Glucose 193 H Calcium Phosphorus Magnesium AST ALT Total Creatine Kinase CK-MB (CK-2) Troponin T Total Protein Albumin HDL Cholesterol TSH Free T3 Index Arterial Blood Glucose 245 H Arterial Blood Ionized Calcium Urine pH Urine WBC (Auto) Urine Creatinine Acetaminophen Crossmatch 05/01/21 05/01/21 05/01/21 07:11 07:45 11:30 WBC RBC Hgb Hct MCV MCH RDW Plt Count Lymph % (Auto) [place] % (Auto) [place] # (Auto) Seg Neutrophils % Seg Neuts % (Manual) Lymphocytes % (Manual) Monocytes % (Manual) Seg Neutrophils # Seg Neutrophils # Man Lymphocytes # (Manual) Monocytes # (Manual) ABG pH POC ABG pCO2 POC ABG pO2 ABG Hemoglobin ABG Oxyhemoglobin ABG Sodium ABG Potassium ABG Chloride ABG Glucose Carboxyhemoglobin Sodium 146 H Potassium Chloride 108.4 H BUN 122 H Creatinine 3.4 H Glucose 235 H POC Glucose 212 H 247 H Calcium Phosphorus Magnesium AST ALT Total Creatine Kinase CK-MB (CK-2) Troponin T Total Protein Albumin HDL Cholesterol TSH Free T3 Index Arterial Blood Glucose Arterial Blood Ionized Calcium Urine pH Urine WBC (Auto) Urine Creatinine Acetaminophen Crossmatch 05/01/21 05/01/21 05/01/21 11:31 17:42 23:49 WBC RBC Hgb Hct MCV MCH RDW Plt Count Lymph % (Auto) [place] % (Auto) [place] # (Auto) Seg Neutrophils % Seg Neuts % (Manual) Lymphocytes % (Manual) Monocytes % (Manual) Seg Neutrophils # Seg Neutrophils # Man Lymphocytes # (Manual) Monocytes # (Manual) ABG pH POC ABG pCO2 POC ABG pO2 ABG Hemoglobin ABG Oxyhemoglobin ABG Sodium ABG Potassium ABG Chloride ABG Glucose Carboxyhemoglobin Sodium Potassium Chloride BUN Creatinine Glucose POC Glucose 258 H 171 H 167 H Calcium Phosphorus Magnesium AST ALT Total Creatine Kinase CK-MB (CK-2) Troponin T Total Protein Albumin HDL Cholesterol TSH Free T3 Index Arterial Blood Glucose Arterial Blood Ionized Calcium Urine pH Urine WBC (Auto) Urine Creatinine Acetaminophen Crossmatch 05/02/21 05/02/21 05/02/21 05:12 08:34 11:53 WBC RBC Hgb Hct MCV MCH RDW Plt Count Lymph % (Auto) [place] % (Auto) [place] # (Auto) Seg Neutrophils % Seg Neuts % (Manual) Lymphocytes % (Manual) Monocytes % (Manual) Seg Neutrophils # Seg Neutrophils # Man Lymphocytes # (Manual) Monocytes # (Manual) ABG pH POC ABG pCO2 POC ABG pO2 ABG Hemoglobin ABG Oxyhemoglobin ABG Sodium ABG Potassium ABG Chloride ABG Glucose Carboxyhemoglobin Sodium 148 H Potassium Chloride 110.4 H BUN 124 H Creatinine 3.4 H Glucose 208 H POC Glucose 163 H 185 H Calcium 8.3 L Phosphorus Magnesium AST ALT Total Creatine Kinase CK-MB (CK-2) Troponin T Total Protein Albumin HDL Cholesterol TSH Free T3 Index Arterial Blood Glucose Arterial Blood Ionized Calcium Urine pH Urine WBC (Auto) Urine Creatinine Acetaminophen Crossmatch 05/02/21 05/02/21 05/03/21 17:28 23:32 03:57 WBC RBC Hgb Hct MCV MCH RDW Plt Count Lymph % (Auto) [place] % (Auto) [place] # (Auto) Seg Neutrophils % Seg Neuts % (Manual) Lymphocytes % (Manual) Monocytes % (Manual) Seg Neutrophils # Seg Neutrophils # Man Lymphocytes # (Manual) Monocytes # (Manual) ABG pH 7.531 H POC ABG pCO2 31.0 L POC ABG pO2 64.3 L ABG Hemoglobin 9.0 L ABG Oxyhemoglobin 92.6 L ABG Sodium 145.7 H ABG Potassium ABG Chloride 112.0 H ABG Glucose 202 H Carboxyhemoglobin Sodium Potassium Chloride BUN Creatinine Glucose POC Glucose 147 H 202 H Calcium Phosphorus Magnesium AST ALT Total Creatine Kinase CK-MB (CK-2) Troponin T Total Protein Albumin HDL Cholesterol TSH Free T3 Index Arterial Blood Glucose 202 H Arterial Blood Ionized Calcium Urine pH Urine WBC (Auto) Urine Creatinine Acetaminophen Crossmatch 05/03/21 05/03/21 05/03/21 05:14 05:44 11:10 WBC RBC Hgb Hct MCV MCH RDW Plt Count Lymph % (Auto) [place] % (Auto) [place] # (Auto) Seg Neutrophils % Seg Neuts % (Manual) Lymphocytes % (Manual) Monocytes % (Manual) Seg Neutrophils # Seg Neutrophils # Man Lymphocytes # (Manual) Monocytes # (Manual) ABG pH POC ABG pCO2 POC ABG pO2 ABG Hemoglobin ABG Oxyhemoglobin ABG Sodium ABG Potassium ABG Chloride ABG Glucose Carboxyhemoglobin Sodium 147 H Potassium Chloride 109.7 H BUN 121 H Creatinine 3.1 H Glucose 190 H POC Glucose 175 H 202 H Calcium Phosphorus Magnesium AST ALT Total Creatine Kinase CK-MB (CK-2) Troponin T Total Protein Albumin HDL Cholesterol TSH Free T3 Index Arterial Blood Glucose Arterial Blood Ionized Calcium Urine pH Urine WBC (Auto) Urine Creatinine Acetaminophen Crossmatch 05/03/21 05/04/21 05/04/21 23:58 04:57 04:57 WBC RBC 2.61 L Hgb 8.2 L Hct 25.4 L MCV 98 H MCH RDW 15.3 H Plt Count Lymph % (Auto) [place] % (Auto) [place] # (Auto) Seg Neutrophils % Seg Neuts % (Manual) Lymphocytes % (Manual) Monocytes % (Manual) Seg Neutrophils # Seg Neutrophils # Man Lymphocytes # (Manual) Monocytes # (Manual) ABG pH POC ABG pCO2 POC ABG pO2 ABG Hemoglobin ABG Oxyhemoglobin ABG Sodium ABG Potassium ABG Chloride ABG Glucose Carboxyhemoglobin Sodium 147 H Potassium Chloride 111.0 H BUN 104 H Creatinine 2.8 H Glucose 179 H POC Glucose 131 H Calcium Phosphorus Magnesium AST ALT Total Creatine Kinase CK-MB (CK-2) Troponin T Total Protein Albumin HDL Cholesterol TSH Free T3 Index Arterial Blood Glucose Arterial Blood Ionized Calcium Urine pH Urine WBC (Auto) Urine Creatinine Acetaminophen Crossmatch 05/04/21 05/04/21 05/04/21 05:19 11:28 17:02 WBC RBC Hgb Hct MCV MCH RDW Plt Count Lymph % (Auto) [place] % (Auto) [place] # (Auto) Seg Neutrophils % Seg Neuts % (Manual) Lymphocytes % (Manual) Monocytes % (Manual) Seg Neutrophils # Seg Neutrophils # Man Lymphocytes # (Manual) Monocytes # (Manual) ABG pH POC ABG pCO2 POC ABG pO2 ABG Hemoglobin ABG Oxyhemoglobin ABG Sodium ABG Potassium ABG Chloride ABG Glucose Carboxyhemoglobin Sodium Potassium Chloride BUN Creatinine Glucose POC Glucose 168 H 206 H 213 H Calcium Phosphorus Magnesium AST ALT Total Creatine Kinase CK-MB (CK-2) Troponin T Total Protein Albumin HDL Cholesterol TSH Free T3 Index Arterial Blood Glucose Arterial Blood Ionized Calcium Urine pH Urine WBC (Auto) Urine Creatinine Acetaminophen Crossmatch 05/04/21 05/05/21 05/05/21 23:13 04:55 05:15 WBC RBC Hgb Hct MCV MCH RDW Plt Count Lymph % (Auto) [place] % (Auto) [place] # (Auto) Seg Neutrophils % Seg Neuts % (Manual) Lymphocytes % (Manual) Monocytes % (Manual) Seg Neutrophils # Seg Neutrophils # Man Lymphocytes # (Manual) Monocytes # (Manual) ABG pH POC ABG pCO2 POC ABG pO2 ABG Hemoglobin ABG Oxyhemoglobin ABG Sodium ABG Potassium ABG Chloride ABG Glucose Carboxyhemoglobin Sodium Potassium Chloride BUN 91 H Creatinine 2.4 H Glucose 255 H POC Glucose 232 H 235 H Calcium Phosphorus Magnesium AST ALT Total Creatine Kinase CK-MB (CK-2) Troponin T Total Protein Albumin HDL Cholesterol TSH Free T3 Index Arterial Blood Glucose Arterial Blood Ionized Calcium Urine pH Urine WBC (Auto) Urine Creatinine Acetaminophen Crossmatch 05/05/21 05/05/21 05/05/21 11:41 17:46 23:40 WBC RBC Hgb Hct MCV MCH RDW Plt Count Lymph % (Auto) [place] % (Auto) [place] # (Auto) Seg Neutrophils % Seg Neuts % (Manual) Lymphocytes % (Manual) Monocytes % (Manual) Seg Neutrophils # Seg Neutrophils # Man Lymphocytes # (Manual) Monocytes # (Manual) ABG pH POC ABG pCO2 POC ABG pO2 ABG Hemoglobin ABG Oxyhemoglobin ABG Sodium ABG Potassium ABG Chloride ABG Glucose Carboxyhemoglobin Sodium Potassium Chloride BUN Creatinine Glucose POC Glucose 199 H 231 H 224 H Calcium Phosphorus Magnesium AST ALT Total Creatine Kinase CK-MB (CK-2) Troponin T Total Protein Albumin HDL Cholesterol TSH Free T3 Index Arterial Blood Glucose Arterial Blood Ionized Calcium Urine pH Urine WBC (Auto) Urine Creatinine Acetaminophen Crossmatch 05/06/21 05/06/21 05/06/21 04:00 05:37 07:12 WBC RBC Hgb Hct MCV MCH RDW Plt Count Lymph % (Auto) [place] % (Auto) [place] # (Auto) Seg Neutrophils % Seg Neuts % (Manual) Lymphocytes % (Manual) Monocytes % (Manual) Seg Neutrophils # Seg Neutrophils # Man Lymphocytes # (Manual) Monocytes # (Manual) ABG pH 7.464 H POC ABG pCO2 POC ABG pO2 74.2 L ABG Hemoglobin 10.5 L ABG Oxyhemoglobin ABG Sodium ABG Potassium ABG Chloride 110.0 H ABG Glucose 214 H Carboxyhemoglobin 0.4 L Sodium 146 H Potassium Chloride 110.4 H BUN 82 H Creatinine 2.3 H Glucose 154 H POC Glucose 165 H Calcium Phosphorus Magnesium AST ALT Total Creatine Kinase CK-MB (CK-2) Troponin T Total Protein Albumin HDL Cholesterol TSH Free T3 Index Arterial Blood Glucose 214 H Arterial Blood Ionized Calcium Urine pH Urine WBC (Auto) Urine Creatinine Acetaminophen Crossmatch 05/06/21 05/06/21 05/07/21 17:11 23:40 05:26 WBC RBC Hgb Hct MCV MCH RDW Plt Count Lymph % (Auto) [place] % (Auto) [place] # (Auto) Seg Neutrophils % Seg Neuts % (Manual) Lymphocytes % (Manual) Monocytes % (Manual) Seg Neutrophils # Seg Neutrophils # Man Lymphocytes # (Manual) Monocytes # (Manual) ABG pH POC ABG pCO2 POC ABG pO2 ABG Hemoglobin ABG Oxyhemoglobin ABG Sodium ABG Potassium ABG Chloride ABG Glucose Carboxyhemoglobin Sodium Potassium Chloride BUN Creatinine Glucose POC Glucose 126 H 165 H 156 H Calcium Phosphorus Magnesium AST ALT Total Creatine Kinase CK-MB (CK-2) Troponin T Total Protein Albumin HDL Cholesterol TSH Free T3 Index Arterial Blood Glucose Arterial Blood Ionized Calcium Urine pH Urine WBC (Auto) Urine Creatinine Acetaminophen Crossmatch 06/06/2005/07/21 05/07/21 08:20 08:20 11:35 WBC RBC 2.58 L Hgb 7.9 L Hct 24.9 L MCV MCH RDW Plt Count Lymph % (Auto) [place] % (Auto) [place] # (Auto) Seg Neutrophils % Seg Neuts % (Manual) Lymphocytes % (Manual) Monocytes % (Manual) Seg Neutrophils # Seg Neutrophils # Man Lymphocytes # (Manual) Monocytes # (Manual) ABG pH POC ABG pCO2 POC ABG pO2 ABG Hemoglobin ABG Oxyhemoglobin ABG Sodium ABG Potassium ABG Chloride ABG Glucose Carboxyhemoglobin Sodium Potassium Chloride 108.4 H BUN 81 H Creatinine 2.4 H Glucose 133 H POC Glucose 112 H Calcium Phosphorus Magnesium AST ALT Total Creatine Kinase CK-MB (CK-2) Troponin T Total Protein Albumin HDL Cholesterol TSH Free T3 Index Arterial Blood Glucose Arterial Blood Ionized Calcium Urine pH Urine WBC (Auto) Urine Creatinine Acetaminophen Crossmatch 05/07/21 05/07/21 05/08/21 17:51 23:27 03:05 WBC RBC Hgb Hct MCV MCH RDW Plt Count Lymph % (Auto) [place] % (Auto) [place] # (Auto) Seg Neutrophils % Seg Neuts % (Manual) Lymphocytes % (Manual) Monocytes % (Manual) Seg Neutrophils # Seg Neutrophils # Man Lymphocytes # (Manual) Monocytes # (Manual) ABG pH 7.454 H POC ABG pCO2 POC ABG pO2 82.1 L ABG Hemoglobin 8.1 L ABG Oxyhemoglobin ABG Sodium ABG Potassium 4.8 H ABG Chloride 111.0 H ABG Glucose 194 H Carboxyhemoglobin Sodium Potassium Chloride BUN Creatinine Glucose POC Glucose 136 H 133 H Calcium Phosphorus Magnesium AST ALT Total Creatine Kinase CK-MB (CK-2) Troponin T Total Protein Albumin HDL Cholesterol TSH Free T3 Index Arterial Blood Glucose 194 H Arterial Blood Ionized Calcium Urine pH Urine WBC (Auto) Urine Creatinine Acetaminophen Crossmatch 05/08/21 05/08/21 05/08/21 05:52 07:07 07:07 WBC 12.0 H RBC 2.94 L Hgb 9.0 L Hct 28.5 L MCV MCH RDW Plt Count Lymph % (Auto) [place] % (Auto) [place] # (Auto) Seg Neutrophils % Seg Neuts % (Manual) Lymphocytes % (Manual) Monocytes % (Manual) Seg Neutrophils # Seg Neutrophils # Man Lymphocytes # (Manual) Monocytes # (Manual) ABG pH POC ABG pCO2 POC ABG pO2 ABG Hemoglobin ABG Oxyhemoglobin ABG Sodium ABG Potassium ABG Chloride ABG Glucose Carboxyhemoglobin Sodium Potassium Chloride BUN 73 H Creatinine 2.2 H Glucose 211 H POC Glucose 194 H Calcium Phosphorus Magnesium AST ALT Total Creatine Kinase CK-MB (CK-2) Troponin T Total Protein Albumin HDL Cholesterol TSH Free T3 Index Arterial Blood Glucose Arterial Blood Ionized Calcium Urine pH Urine WBC (Auto) Urine Creatinine Acetaminophen Crossmatch 05/08/21 05/08/21 05/08/21 11:19 17:20 23:22 WBC RBC Hgb Hct MCV MCH RDW Plt Count Lymph % (Auto) [place] % (Auto) [place] # (Auto) Seg Neutrophils % Seg Neuts % (Manual) Lymphocytes % (Manual) Monocytes % (Manual) Seg Neutrophils # Seg Neutrophils # Man Lymphocytes # (Manual) Monocytes # (Manual) ABG pH POC ABG pCO2 POC ABG pO2 ABG Hemoglobin ABG Oxyhemoglobin ABG Sodium ABG Potassium ABG Chloride ABG Glucose Carboxyhemoglobin Sodium Potassium Chloride BUN Creatinine Glucose POC Glucose 231 H 251 H 295 H Calcium Phosphorus Magnesium AST ALT Total Creatine Kinase CK-MB (CK-2) Troponin T Total Protein Albumin HDL Cholesterol TSH Free T3 Index Arterial Blood Glucose Arterial Blood Ionized Calcium Urine pH Urine WBC (Auto) Urine Creatinine Acetaminophen Crossmatch 05/09/21 05/09/21 05/09/21 05:39 07:36 11:39 WBC RBC Hgb Hct MCV MCH RDW Plt Count Lymph % (Auto) [place] % (Auto) [place] # (Auto) Seg Neutrophils % Seg Neuts % (Manual) Lymphocytes % (Manual) Monocytes % (Manual) Seg Neutrophils # Seg Neutrophils # Man Lymphocytes # (Manual) Monocytes # (Manual) ABG pH POC ABG pCO2 POC ABG pO2 ABG Hemoglobin ABG Oxyhemoglobin ABG Sodium ABG Potassium ABG Chloride ABG Glucose Carboxyhemoglobin Sodium Potassium Chloride BUN 64 H Creatinine 2.2 H Glucose 308 H POC Glucose 240 H 330 H Calcium Phosphorus Magnesium AST ALT Total Creatine Kinase CK-MB (CK-2) Troponin T Total Protein Albumin HDL Cholesterol TSH Free T3 Index Arterial Blood Glucose Arterial Blood Ionized Calcium Urine pH Urine WBC (Auto) Urine Creatinine Acetaminophen Crossmatch 05/09/21 05/09/21 05/10/21 17:37 23:15 05:15 WBC RBC Hgb Hct MCV MCH RDW Plt Count Lymph % (Auto) [place] % (Auto) [place] # (Auto) Seg Neutrophils % Seg Neuts % (Manual) Lymphocytes % (Manual) Monocytes % (Manual) Seg Neutrophils # Seg Neutrophils # Man Lymphocytes # (Manual) Monocytes # (Manual) ABG pH POC ABG pCO2 POC ABG pO2 ABG Hemoglobin ABG Oxyhemoglobin ABG Sodium ABG Potassium ABG Chloride ABG Glucose Carboxyhemoglobin Sodium Potassium Chloride BUN Creatinine Glucose POC Glucose 174 H 152 H 146 H Calcium Phosphorus Magnesium AST ALT Total Creatine Kinase CK-MB (CK-2) Troponin T Total Protein Albumin HDL Cholesterol TSH Free T3 Index Arterial Blood Glucose Arterial Blood Ionized Calcium Urine pH Urine WBC (Auto) Urine Creatinine Acetaminophen Crossmatch 05/10/21 05/10/21 05/10/21 05:36 11:29 17:35 WBC RBC Hgb Hct MCV MCH RDW Plt Count Lymph % (Auto) [place] % (Auto) [place] # (Auto) Seg Neutrophils % Seg Neuts % (Manual) Lymphocytes % (Manual) Monocytes % (Manual) Seg Neutrophils # Seg Neutrophils # Man Lymphocytes # (Manual) Monocytes # (Manual) ABG pH POC ABG pCO2 POC ABG pO2 ABG Hemoglobin ABG Oxyhemoglobin ABG Sodium ABG Potassium ABG Chloride ABG Glucose Carboxyhemoglobin Sodium Potassium Chloride 110.7 H BUN 54 H Creatinine 2.2 H Glucose 164 H POC Glucose 202 H 109 H Calcium Phosphorus Magnesium AST ALT Total Creatine Kinase CK-MB (CK-2) Troponin T Total Protein Albumin HDL Cholesterol TSH Free T3 Index Arterial Blood Glucose Arterial Blood Ionized Calcium Urine pH Urine WBC (Auto) Urine Creatinine Acetaminophen Crossmatch 05/11/21 05/11/21 05/11/21 05:38 07:10 11:54 WBC RBC Hgb Hct MCV MCH RDW Plt Count Lymph % (Auto) [place] % (Auto) [place] # (Auto) Seg Neutrophils % Seg Neuts % (Manual) Lymphocytes % (Manual) Monocytes % (Manual) Seg Neutrophils # Seg Neutrophils # Man Lymphocytes # (Manual) Monocytes # (Manual) ABG pH POC ABG pCO2 POC ABG pO2 ABG Hemoglobin ABG Oxyhemoglobin ABG Sodium ABG Potassium ABG Chloride ABG Glucose Carboxyhemoglobin Sodium Potassium 5.2 H Chloride 108.8 H BUN 50 H Creatinine 2.2 H Glucose 176 H POC Glucose 135 H 219 H Calcium Phosphorus Magnesium AST ALT Total Creatine Kinase CK-MB (CK-2) Troponin T Total Protein Albumin HDL Cholesterol TSH Free T3 Index Arterial Blood Glucose Arterial Blood Ionized Calcium Urine pH Urine WBC (Auto) Urine Creatinine Acetaminophen Crossmatch 05/11/21 05/11/21 05/12/21 17:51 22:50 04:51 WBC RBC Hgb Hct MCV MCH RDW Plt Count Lymph % (Auto) [place] % (Auto) [place] # (Auto) Seg Neutrophils % Seg Neuts % (Manual) Lymphocytes % (Manual) Monocytes % (Manual) Seg Neutrophils # Seg Neutrophils # Man Lymphocytes # (Manual) Monocytes # (Manual) ABG pH POC ABG pCO2 POC ABG pO2 ABG Hemoglobin ABG Oxyhemoglobin ABG Sodium ABG Potassium ABG Chloride ABG Glucose Carboxyhemoglobin Sodium Potassium Chloride 108.2 H BUN 49 H Creatinine 2.2 H Glucose 161 H POC Glucose 169 H 118 H Calcium Phosphorus Magnesium AST ALT Total Creatine Kinase CK-MB (CK-2) Troponin T Total Protein Albumin HDL Cholesterol TSH Free T3 Index Arterial Blood Glucose Arterial Blood Ionized Calcium Urine pH Urine WBC (Auto) Urine Creatinine Acetaminophen Crossmatch 05/12/21 05/12/21 05/12/21 05:05 10:31 11:50 WBC RBC Hgb Hct MCV MCH RDW Plt Count Lymph % (Auto) [place] % (Auto) [place] # (Auto) Seg Neutrophils % Seg Neuts % (Manual) Lymphocytes % (Manual) Monocytes % (Manual) Seg Neutrophils # Seg Neutrophils # Man Lymphocytes # (Manual) Monocytes # (Manual) ABG pH 7.498 H POC ABG pCO2 POC ABG pO2 75.8 L ABG Hemoglobin 7.3 L ABG Oxyhemoglobin 93.4 L ABG Sodium ABG Potassium ABG Chloride 108.0 H ABG Glucose 199 H Carboxyhemoglobin 1.6 H Sodium Potassium Chloride BUN Creatinine Glucose POC Glucose 160 H 160 H Calcium Phosphorus Magnesium AST ALT Total Creatine Kinase CK-MB (CK-2) Troponin T Total Protein Albumin HDL Cholesterol TSH Free T3 Index Arterial Blood Glucose 199 H Arterial Blood Ionized Calcium Urine pH Urine WBC (Auto) Urine Creatinine Acetaminophen Crossmatch 05/12/21 05/12/21 05/13/21 17:39 23:36 05:49 WBC RBC Hgb Hct MCV MCH RDW Plt Count Lymph % (Auto) [place] % (Auto) [place] # (Auto) Seg Neutrophils % Seg Neuts % (Manual) Lymphocytes % (Manual) Monocytes % (Manual) Seg Neutrophils # Seg Neutrophils # Man Lymphocytes # (Manual) Monocytes # (Manual) ABG pH POC ABG pCO2 POC ABG pO2 ABG Hemoglobin ABG Oxyhemoglobin ABG Sodium ABG Potassium ABG Chloride ABG Glucose Carboxyhemoglobin Sodium Potassium Chloride BUN Creatinine Glucose POC Glucose 148 H 148 H 173 H Calcium Phosphorus Magnesium AST ALT Total Creatine Kinase CK-MB (CK-2) Troponin T Total Protein Albumin HDL Cholesterol TSH Free T3 Index Arterial Blood Glucose Arterial Blood Ionized Calcium Urine pH Urine WBC (Auto) Urine Creatinine Acetaminophen Crossmatch 05/13/21 05/13/21 05/13/21 05:58 13:09 17:01 WBC RBC Hgb Hct MCV MCH RDW Plt Count Lymph % (Auto) [place] % (Auto) [place] # (Auto) Seg Neutrophils % Seg Neuts % (Manual) Lymphocytes % (Manual) Monocytes % (Manual) Seg Neutrophils # Seg Neutrophils # Man Lymphocytes # (Manual) Monocytes # (Manual) ABG pH POC ABG pCO2 POC ABG pO2 ABG Hemoglobin ABG Oxyhemoglobin ABG Sodium ABG Potassium ABG Chloride ABG Glucose Carboxyhemoglobin Sodium Potassium Chloride 108.0 H BUN 53 H Creatinine 2.2 H Glucose 178 H POC Glucose 191 H 151 H Calcium Phosphorus Magnesium AST ALT Total Creatine Kinase CK-MB (CK-2) Troponin T Total Protein Albumin HDL Cholesterol TSH Free T3 Index Arterial Blood Glucose Arterial Blood Ionized Calcium Urine pH Urine WBC (Auto) Urine Creatinine Acetaminophen Crossmatch 05/14/21 05/14/21 05/14/21 00:02 04:48 08:16 WBC RBC Hgb Hct MCV MCH RDW Plt Count Lymph % (Auto) [place] % (Auto) [place] # (Auto) Seg Neutrophils % Seg Neuts % (Manual) Lymphocytes % (Manual) Monocytes % (Manual) Seg Neutrophils # Seg Neutrophils # Man Lymphocytes # (Manual) Monocytes # (Manual) ABG pH POC ABG pCO2 POC ABG pO2 ABG Hemoglobin ABG Oxyhemoglobin ABG Sodium ABG Potassium ABG Chloride ABG Glucose Carboxyhemoglobin Sodium Potassium Chloride BUN 45 H Creatinine 2.0 H Glucose 207 H POC Glucose 148 H 193 H Calcium Phosphorus Magnesium AST ALT Total Creatine Kinase CK-MB (CK-2) Troponin T Total Protein Albumin HDL Cholesterol TSH Free T3 Index Arterial Blood Glucose Arterial Blood Ionized Calcium Urine pH Urine WBC (Auto) Urine Creatinine Acetaminophen Crossmatch 05/14/21 05/14/21 05/14/21 08:50 12:44 17:29 WBC RBC 2.16 L Hgb 7.0 L Hct 21.2 L MCV 98 H MCH 33 H RDW 16.0 H Plt Count Lymph % (Auto) [place] % (Auto) [place] # (Auto) Seg Neutrophils % Seg Neuts % (Manual) Lymphocytes % (Manual) Monocytes % (Manual) Seg Neutrophils # Seg Neutrophils # Man Lymphocytes # (Manual) Monocytes # (Manual) ABG pH POC ABG pCO2 POC ABG pO2 ABG Hemoglobin ABG Oxyhemoglobin ABG Sodium ABG Potassium ABG Chloride ABG Glucose Carboxyhemoglobin Sodium Potassium Chloride BUN Creatinine Glucose POC Glucose 215 H 118 H Calcium Phosphorus Magnesium AST ALT Total Creatine Kinase CK-MB (CK-2) Troponin T Total Protein Albumin HDL Cholesterol TSH Free T3 Index Arterial Blood Glucose Arterial Blood Ionized Calcium Urine pH Urine WBC (Auto) Urine Creatinine Acetaminophen Crossmatch 05/14/21 05/15/21 05/15/21 19:00 05:11 05:51 WBC RBC Hgb Hct MCV MCH RDW Plt Count Lymph % (Auto) [place] % (Auto) [place] # (Auto) Seg Neutrophils % Seg Neuts % (Manual) Lymphocytes % (Manual) Monocytes % (Manual) Seg Neutrophils # Seg Neutrophils # Man Lymphocytes # (Manual) Monocytes # (Manual) ABG pH POC ABG pCO2 POC ABG pO2 ABG Hemoglobin ABG Oxyhemoglobin ABG Sodium ABG Potassium ABG Chloride ABG Glucose Carboxyhemoglobin Sodium Potassium 5.3 H Chloride BUN 42 H Creatinine 2.0 H Glucose 123 H POC Glucose 116 H Calcium Phosphorus Magnesium AST ALT Total Creatine Kinase CK-MB (CK-2) Troponin T Total Protein Albumin HDL Cholesterol TSH Free T3 Index Arterial Blood Glucose Arterial Blood Ionized Calcium Urine pH Urine WBC (Auto) Urine Creatinine Acetaminophen Crossmatch See Detail 05/15/21 05/15/21 05/15/21 05:51 11:27 22:00 WBC RBC 2.60 L Hgb 8.0 L Hct 24.6 L MCV MCH RDW 17.0 H Plt Count Lymph % (Auto) [place] % (Auto) 15.3 H [place] # (Auto) 1.1 H Seg Neutrophils % Seg Neuts % (Manual) Lymphocytes % (Manual) Monocytes % (Manual) Seg Neutrophils # Seg Neutrophils # Man Lymphocytes # (Manual) Monocytes # (Manual) ABG pH 7.473 H POC ABG pCO2 POC ABG pO2 77.7 L ABG Hemoglobin 8.4 L ABG Oxyhemoglobin ABG Sodium ABG Potassium 4.7 H ABG Chloride ABG Glucose 104 H Carboxyhemoglobin Sodium Potassium Chloride BUN Creatinine Glucose POC Glucose 156 H Calcium Phosphorus Magnesium AST ALT Total Creatine Kinase CK-MB (CK-2) Troponin T Total Protein Albumin HDL Cholesterol TSH Free T3 Index Arterial Blood Glucose 104 H Arterial Blood Ionized Calcium Urine pH Urine WBC (Auto) Urine Creatinine Acetaminophen Crossmatch 05/16/21 05/16/21 05/16/21 05:25 06:40 11:57 WBC RBC Hgb Hct MCV MCH RDW Plt Count Lymph % (Auto) [place] % (Auto) [place] # (Auto) Seg Neutrophils % Seg Neuts % (Manual) Lymphocytes % (Manual) Monocytes % (Manual) Seg Neutrophils # Seg Neutrophils # Man Lymphocytes # (Manual) Monocytes # (Manual) ABG pH POC ABG pCO2 POC ABG pO2 ABG Hemoglobin ABG Oxyhemoglobin ABG Sodium ABG Potassium ABG Chloride ABG Glucose Carboxyhemoglobin Sodium Potassium 5.4 H Chloride BUN 39 H Creatinine 2.0 H Glucose 165 H POC Glucose 143 H 191 H Calcium Phosphorus Magnesium AST ALT Total Creatine Kinase CK-MB (CK-2) Troponin T Total Protein Albumin HDL Cholesterol TSH Free T3 Index Arterial Blood Glucose Arterial Blood Ionized Calcium Urine pH Urine WBC (Auto) Urine Creatinine Acetaminophen Crossmatch 05/16/21 05/16/21 05/17/21 17:18 23:02 05:08 WBC RBC Hgb Hct MCV MCH RDW Plt Count Lymph % (Auto) [place] % (Auto) [place] # (Auto) Seg Neutrophils % Seg Neuts % (Manual) Lymphocytes % (Manual) Monocytes % (Manual) Seg Neutrophils # Seg Neutrophils # Man Lymphocytes # (Manual) Monocytes # (Manual) ABG pH POC ABG pCO2 POC ABG pO2 ABG Hemoglobin ABG Oxyhemoglobin ABG Sodium ABG Potassium ABG Chloride ABG Glucose Carboxyhemoglobin Sodium Potassium Chloride BUN Creatinine Glucose POC Glucose 157 H 127 H 171 H Calcium Phosphorus Magnesium AST ALT Total Creatine Kinase CK-MB (CK-2) Troponin T Total Protein Albumin HDL Cholesterol TSH Free T3 Index Arterial Blood Glucose Arterial Blood Ionized Calcium Urine pH Urine WBC (Auto) Urine Creatinine Acetaminophen Crossmatch 05/17/21 05/17/2105/17/21 07:43 07:43 11:11 WBC RBC 2.83 L Hgb 8.6 L Hct 26.8 L MCV MCH RDW 16.2 H Plt Count Lymph % (Auto) [place] % (Auto) [place] # (Auto) Seg Neutrophils % Seg Neuts % (Manual) Lymphocytes % (Manual) Monocytes % (Manual) Seg Neutrophils # Seg Neutrophils # Man Lymphocytes # (Manual) Monocytes # (Manual) ABG pH POC ABG pCO2 POC ABG pO2 ABG Hemoglobin ABG Oxyhemoglobin ABG Sodium ABG Potassium ABG Chloride ABG Glucose Carboxyhemoglobin Sodium Potassium Chloride BUN 39 H Creatinine 2.1 H Glucose 183 H POC Glucose 182 H Calcium Phosphorus Magnesium AST ALT Total Creatine Kinase CK-MB (CK-2) Troponin T Total Protein Albumin HDL Cholesterol TSH Free T3 Index Arterial Blood Glucose Arterial Blood Ionized Calcium Urine pH Urine WBC (Auto) Urine Creatinine Acetaminophen Crossmatch 05/17/21 05/17/21 05/18/21 17:25 21:04 01:54 WBC RBC Hgb Hct MCV MCH RDW Plt Count Lymph % (Auto) [place] % (Auto) [place] # (Auto) Seg Neutrophils % Seg Neuts % (Manual) Lymphocytes % (Manual) Monocytes % (Manual) Seg Neutrophils # Seg Neutrophils # Man Lymphocytes # (Manual) Monocytes # (Manual) ABG pH POC ABG pCO2 POC ABG pO2 ABG Hemoglobin 9.2 L ABG Oxyhemoglobin ABG Sodium ABG Potassium ABG Chloride ABG Glucose 160 H Carboxyhemoglobin Sodium Potassium Chloride BUN Creatinine Glucose POC Glucose 117 H 130 H Calcium Phosphorus Magnesium AST ALT Total Creatine Kinase CK-MB (CK-2) Troponin T Total Protein Albumin HDL Cholesterol TSH Free T3 Index Arterial Blood Glucose 160 H Arterial Blood Ionized Calcium Urine pH Urine WBC (Auto) Urine Creatinine Acetaminophen Crossmatch 05/18/21 05/18/21 05/18/21 05:21 06:13 06:45 WBC RBC Hgb Hct MCV MCH RDW Plt Count Lymph % (Auto) [place] % (Auto) [place] # (Auto) Seg Neutrophils % Seg Neuts % (Manual) Lymphocytes % (Manual) Monocytes % (Manual) Seg Neutrophils # Seg Neutrophils # Man Lymphocytes # (Manual) Monocytes # (Manual) ABG pH POC ABG pCO2 POC ABG pO2 ABG Hemoglobin ABG Oxyhemoglobin ABG Sodium ABG Potassium ABG Chloride ABG Glucose Carboxyhemoglobin Sodium Potassium Chloride BUN 42 H Creatinine 2.1 H Glucose 154 H POC Glucose 163 H Calcium Phosphorus Magnesium AST ALT Total Creatine Kinase CK-MB (CK-2) Troponin T Total Protein Albumin HDL Cholesterol TSH Free T3 Index Arterial Blood Glucose Arterial Blood Ionized Calcium Urine pH Urine WBC (Auto) Urine Creatinine 104.7 H Acetaminophen Crossmatch 05/18/21 05/18/21 05/18/21 12:01 16:01 23:59 WBC RBC Hgb Hct MCV MCH RDW Plt Count Lymph % (Auto) [place] % (Auto) [place] # (Auto) Seg Neutrophils % Seg Neuts % (Manual) Lymphocytes % (Manual) Monocytes % (Manual) Seg Neutrophils # Seg Neutrophils # Man Lymphocytes # (Manual) Monocytes # (Manual) ABG pH POC ABG pCO2 POC ABG pO2 ABG Hemoglobin ABG Oxyhemoglobin ABG Sodium ABG Potassium ABG Chloride ABG Glucose Carboxyhemoglobin Sodium Potassium Chloride BUN Creatinine Glucose POC Glucose 209 H 142 H 118 H Calcium Phosphorus Magnesium AST ALT Total Creatine Kinase CK-MB (CK-2) Troponin T Total Protein Albumin HDL Cholesterol TSH Free T3 Index Arterial Blood Glucose Arterial Blood Ionized Calcium Urine pH Urine WBC (Auto) Urine Creatinine Acetaminophen Crossmatch 05/19/21 06:22 WBC RBC Hgb Hct MCV MCH RDW Plt Count Lymph % (Auto) [place] % (Auto) [place] # (Auto) Seg Neutrophils % Seg Neuts % (Manual) Lymphocytes % (Manual) Monocytes % (Manual) Seg Neutrophils # Seg Neutrophils # Man Lymphocytes # (Manual) Monocytes # (Manual) ABG pH POC ABG pCO2 POC ABG pO2 ABG Hemoglobin ABG Oxyhemoglobin ABG Sodium ABG Potassium ABG Chloride ABG Glucose Carboxyhemoglobin Sodium Potassium Chloride BUN Creatinine Glucose POC Glucose 151 H Calcium Phosphorus Magnesium AST ALT Total Creatine Kinase CK-MB (CK-2) Troponin T Total Protein Albumin HDL Cholesterol TSH Free T3 Index Arterial Blood Glucose Arterial Blood Ionized Calcium Urine pH Urine WBC (Auto) Urine Creatinine Acetaminophen Crossmatch Allied health notes reviewed: nursing
[2021-05-19 08:44] LABS: Calcium 9.7 mg/dL (8.4-10.2)
[2021-05-19 08:46] LABS: Hematocrit 24.4 % (30.3-42.9); Hemoglobin 8.1 gm/dl (10.1-14.3); Mean Corpuscular HGB Conc 33 % (30-34); Mean Corpuscular Volume 96 fl (79-97); Platelet Count 275 K/mm3 (140-440); Red Blood Count 2.55 M/mm3 (3.65-5.03); Red Cell Distribution Width 16.5 % (13.2-15.2)
[2021-05-19] MEDS: GLYCOPYRROLATE 1 MG TAB PO SCH ×3 (09:44→21:29)
[2021-05-19] MEDS: FAMOTIDINE 20 MG TAB PO SCH (09:44)
[2021-05-19] MEDS: TAMSULOSIN 0.4 MG CAP PO SCH (09:45)
[2021-05-19] MEDS: DOCUSATE SODIUM 100 MG/10 ML ORAL LIQD PO SCH ×2 (09:45→21:30)
[2021-05-19] MEDS: MIDODRINE 5 MG TAB PO SCH ×3 (09:45→18:12)
[2021-05-19] MEDS: ASPIRIN 81 MG TAB CHEW PO SCH (09:45)
[2021-05-19] MEDS: INSULIN NPH/REGULAR 70/30 INJ SUB-Q SCH ×2 (09:45→18:02)
[2021-05-19] MEDS: amLODIPine 5 MG TAB PO SCH (09:45)
[2021-05-19] MEDS: HEPARIN 5,000 UNIT/1 ML VIAL SUB-Q SCH ×2 (09:45→21:30)
[2021-05-19] MEDS: BRIMONIDINE 0.15% OPHTH SOLN OU SCH ×2 (09:46→21:30)
[2021-05-19] MEDS: TIMOLOL 0.5% OPHTH SOLN 5 ML OU SCH (09:46)
--- NOTE | 2021-05-19 10:14 | Progress Note ---
Assessment and Plan Assessment and plan: This is a 80-year-old female with HTN, DM, [place], breast CA s/p double mastectomy, TIA who presented with hypoglycemia, AMS who was admitted with SIRS, symptomatic bradycardia, acute metabolic encephalopathy, acute hypoxic respiratory failure, elevated TSH, hyperglycemia, hyponatremia, hypokalemia, ROJELIO and rhabdomyolysis Acute metabolic encephalopathy-persist Acute hypoxic respiratory failure (extubated 04/20)- Re-intubated secondary to Stridor and paradoxical breathing - s/p trach and PEG First-degree heart block Resolved ileus versus mechanical obstruction Acute kidney injury with vasomotor nephropathy UTI, Pseudomonas/ Earline Elevated TSH Mild rhabdomyolysis Hypertension Diabetes mellitus with hyperglycemia on admission CAD Hypothyroidism Chronic illness debilitymyopathy Obesity Debility Urinary retention -CCM, nephrology, neurology, cardiology consulted, patient recommendations -S/p D10 and D5W gtt, on TF -S/p IV calcium gluconate, regular insulin, D50 -S/p transcutaneous pacing, intermittent demand pacer in place -Renal ultrasound findings consistent with acute on chronic kidney disease, mildly complex right renal cyst -Blood pressure monitoring per protocol -Accu-Cheks every 6, SSI, long acting insulin -IV hydralazine as needed -midodrine for hypotension -04/25 EEG is mildly abnormal with mild slowing noted throughout the recording, suggestive of mild cortical dysfunction and/or drug effect -04/20 EEG shows mildly abnormal record due to diffuse background slowing noted throughout the recording, intermittent motion artifact, patient intubated and sedated at time of study, no sign of seizures as well epilepticus noted, possible toxic metabolic encephalopathy, drug effect, possible postictal state cannot be totally excluded. -Avoid ACEi/ARB in setting of ROJELIO -Avoid AV arron blocking agents -Avoid nephrotoxic agents and renally dose medications -BB, hydralazine, amlodipine -TSH 14.1, T4 4.1, T3 1.1-started on levothyroxine -As needed racemic epinephrine -S/p steroids -s/p Antibiotic therapy -Trend CBC, BMP as needed PT/OT/ST to evaluate the patient Bladder scans as needed We will obtain chest x-ray to make sure there is no pulmonary edema. DVT/GI prophylaxis: Heparin subcu, PPI, SCDs to bilateral lower extremities while in bed Disposition: Patient will need physical therapy evaluation, [facility] has accepted the patient, however it is undetermined if the patient is able to participate in any physical therapy at this time. History Interval history: 04/16: Neurology consulted, COVID-19 PCR negative, D10 drip decreased and eventually discontinued by [facility] and started on D5W for 1 L. Hydralazine as needed. Patient had hyper kalemia today and was treated with D50, insulin and Kayexalate. This time examination patient is on assist control tidal volume 450, rate of 16, PEEP of 6 and 25% FiO2. 04/17: Patient started on low-dose beta-angel per cardiology, CPAP trial again per [facility], BUN/creatinine holding steady and hypochloremia/hyponatremia slightly improved and hypokalemia has resolved. This morning a KUB was obtained which was concerning for ileus versus mechanical obstruction and surgery was consulted. Patient was made n.p.o. and NG tube placed to wall suction. Patient was given suppository. Per RN patient did not have a BM even though she was given Kayexalate yesterday. Will obtain a KUB in the a.m. Neurology was consulted yesterday and will await further recommendations. Nephew updated at bedside today, Carlos Romero. 04/18: Neurology has ordered EEG/MRI B, [facility] continues to wean MV. Persistent low grade temperature so we will obtain BCx2/UA. Patient has improving leukocytosis, hyponatremia, renal function studies and hypochloremia. She has hypokalemia today which is being repleted. Surgery has signed off today and has okayed resumption of TF. [facility] will trial CPAP for longer today and plans to attempt extubation in AM. Family has requested transfer to [place] and Dr. Gordon will attempt to contact transfer center. I updated her nephew, Carlos Romero over the phone today abouyt current events and update on transfer ([place] will conduct a utilization review) 04/19: This morning patient is on CPAP trial at the time of examination, noted to be hypertensive and metoprolol increased to home dose, started on synthroid by [facility], lantus started re hyperglycemia, MRI completed with no acute findings. Severe hypokalemia (repleted and Mg pending). [facility] will contact CPAP trial again today with possible trial extubation tomorrow. 04/20: Patient's leukocytosis and kidney function tests continue to improve. Patient is hypertensive overnight we will restart home hydralazine. [facility] plans to extubate patient today. Family is attempting to transfer to another facility. EEG pending, RT will atmept to contact tire technician. Urine culture grew gram negative rods. Increase in lantus 04/21: Increase in Lantus, repleted phos. Patient has started this afternoon and was given racemic epinephrine and started on steroids. Patient will have BiPAP as needed. We will recheck BMP in the a.m. renal function studies continues to decrease. Patient has been hypertensive on evaluation regimen has been changed. 04/22: Lantus increased for hyperglycemia and add amlodipine for better BP control. Patient is on steroids. OT suctioned by RN with catheter in oral care kit and received copious amounts of secretions. Cr continues to decrease. Culture grew Pseudomonas and was changed in accordance to sensitivity. Kerr removed today after clearance from nephrology. 04/23: MRI of the brain was done and unremarkable. Will obtain reconsult to nephrology for further assistance as patient remains in profound encephalopathy despite improvement of blood sugar. Will repeat chest x-ray as patient does have significant congestion physical exam. Tube feeds still ongoing. Continue aspiration precautions. Continue antibiotics when completed for Pseudomonas management 04/24: Neurology input noted, patient unfortunately with no improvement mental status mil[place], continues with congestion, will defer with Master Fire Control Technician for lasix in the setting of renal failure. will give kayexlate for hyperkalemia, still moans and groans, mittens in place. 04/25: Patient currently intubated, on restraints for safety, Profund encephalopathy persist, although awake she is not following any commands, Call placed to [place] to see if they will accept transfer for ENT evaluation, while CT neck was negative, it was degraded by motion and unable to determent why patient had this stridor, Racemic Epinephrine was given, [place] is on ICU saturation, but will call back with an ENT to discuss case. Renal function mildly worse, continue to monitor. Per cardiology, no further arrhythmias noted since admission. Given short duration of atrial fibrillation, along with pt's age, renal fxn, and other co- morbidities,...will resume additional medical therapies for underlying severe multi-vessel CAD (bASA & Plavix). Pt has previously declined intervention of known lesions as per her Primary Gi Asst. 04/26: Now with febrile illness, ?developing infection, start on empiric abx, cassi ck lactate level, blood cultures, continue management per Energy Operations Vice President, Monitor leukocytosis, agree with Trach, family updated about denials in transfer request from outside hospitals. 04/27: WBC improving some, still with fever despite antibotics, ID consulted. CXR clear, continue current management, Trach will be planned if ok with family. Blood sugar remains elevated, will adjust insulin LANTUS to 40 units. Patient had previously completed Cefepime. Mental status remains unchanged, still moves upper ext. continue restraints 04/28: Continue supportive care. No new fever noted. Critical care physician will determine if patient should be have a trial of extubation again or if we should proceed straight to trach. Again continue to monitor mental status for complete improvement. 04/29: Per Energy Operations Vice President discussion with family, will proceed to Tracheostomy, Patients mental status still fluctuating, Continue current management. Surgeon consulted. 04/30: General surgery consulted for trach, continue to trend CBC and BMP. Kidney function slightly worsened today. Increase in Lantus. Tmax 100.2, per ID will consider imaging if leukocytosis remains elevated with fevers. Plavix held for possible tracheostomy next week. 05/01: Patient fever curve is trending down with improving leukocytosis. Patient renal function worsened today. She remains hyperglycemic and her Lantus was increased to her home dose of Novolin 70/30. Patient was rate controlled yesterday due to T-max of 101. She remains on CMV tidal volume 450, rate of 10, PEEP of 6 and 30% FiO2. We will increase the water flushes given slight hypernatremia. Dr. Andrea updated nephew (Carlos) at bedside. CPAP trails. 05/02: Patient's hypernatremia and hyperchloremia slightly worsened and femur fractures were increased. Kidney functions remain the same however BUN is in the 100s. Nephrology is following. Kerr catheter was removed. Awaiting trach placement with possibility on Friday. 05/03: Patient grew Earline in her urine culture however per ID and the Kerr was already exchanged. Patient is on cefepime and Flagyl. Plavix still on hold awaiting trach. CCM started the patient on half-normal saline at 75 mL/h for 2 L related to azatoma and hypernatremia. Patient mental status continues to wax and wane. Creatinine is 3.1 today from 3.4 yesterday. Patient had a bowel movement today. Patient remains hyperglycemic and Lantus was changed from a.m. to p.m.. 05/04: Patient's renal function is improving, surgery obtain consent for trach/PEG scheduled for 05/07, antibiotics to end tomorrow. We will obtain BMP in the a.m. Lantus dosage change from AC to at bedtime in hopes of better glycemic control. 05/05: Patient Lantus dose is changed to twice daily in hopes of better glycemic control. Awaiting surgical procedure hopefully on Friday. Patient's BUN/creatinine improved and hypernatremia has resolved. 05/06: Patient has slight hypernatremia and hyperchloremia and improvement to BUN/creatinine. Better glycemic control. Awaiting trach on Friday. NGT was displaced but now replaced and TF resumed. 05/07 This is a 80-year-old female with HTN, DM, [place], breast CA s/p double mastectomy, TIA who presented with hypoglycemia, AMS who was admitted with SIRS, symptomatic bradycardia, acute metabolic encephalopathy, acute hypoxic respiratory failure, elevated TSH, hyperglycemia, hyponatremia, hypokalemia, ROJELIO and rhabdomyolysis. She is for Trach and PEG today. 05/08: s/p trach and PEG placement yesterday. cont to monitor, wean off from vent as tolertaed 05/09: Patient started on tube feeding and tolerating well. Currently on CPAP setting with newly placed trach. Discussed with case management and patient would need placement. Continue supportive care and follow clinically. 05/10: Continue supportive care, patient is tolerating tube feeding diet. Remains on CPAP with trach. Pending LTAC placement. 05/11: Continue supportive care, patient is tolerating tube feeding diet. Remains on CPAP with trach. Plan to wean off from Vent as tolerates and to place on t-piece. 05/12; Patient placed on t-piece today, tolerating TF, cont to monitor clinically. follow CBC/BMP 05/13: Remains on t-piece, plan to wean off to wall T-piece. If unable to wean off from vent then patient will need criteria for LTAC upon her insurance requirement. If she tolerates weaning trial and able to maintain T-piece then she will be discharged back to longterm. Ordered for a.m. labs. Continue to follow clinically with supportive care. 05/14: Pending placement. Patient back on Mechanical ventilation today with trach tube. Hemoglobin 7.0. Will transfuse 1 unit packed RBC. Continue to monitor clinically. 05/15: Pending placement, [facility] continues to trial patient on trach collar for as long as tolerated. Patient is H/H improved to 8/24.6 after 1 unit PRBC. Renal function continues to fluctuate and is currently at CR 2/BUN 42. Patient is slightly hyperkalemic today at 5.3 and received 30 g of Kionex. We will obtain a.m. BMP and continue to trend CBC. Patient is hypertensive and hydralazine dose has been increased. 05/16: Patient noted to have hyperkalemia again today and was treated. Patient continued T-piece on 20% FiO2 for over 24 hours. This afternoon patient was noted to be off of trach collar and SPO2 was still in the mid 90s. Trach collar was replaced. We will remove Kerr catheter and BladderScan the patient every 4 hours. 05/17: Patient has been started on midodrine and given approximately 750 ML IV fluid bolus in response to hypotension. Will receive normal saline at 75 for another 2 L. Has a standing order for bladder scans every 4 and straight cath if needed. Patient will be transferred to telemetry today. 05/18: Patient is on the floor, patient is shaking her head to answering questions and moving her legs. Patient is lethargic at times. 05/19: Patient seen on floor, patient is awake, has some secretions, spoke with nurse to suction. Patient is shaking her head yes and no to my questions. Hospitalist Physical - Physical exam Narrative exam: General appearance: no acute distress, well-nourished EENT: PERRL, EOM intact, hearing intact, dry oral mucosa Neck: Tracheostomy with trach tube, connected to vent Respiratory: Connected to vent via tracheostomy tube, minimal crackles heard on middle right lung lobe Cardiovascular: Regular rate/rhythm, Normal S1 & S2. No gallop, rub Extremities: Hands in mittens, no ischemia, No edema, normal temperature, normal color, Full ROM Abdominal: PEG tube, soft, no tenderness, non-distended, normal bowel sounds Integumentary: Present: clear, warm, dry no wounds, no erythema noted Neurologic: CNII-XII intact, patient is minimally moving her legs and arms - Constitutional Vitals: Temp Pulse Resp BP Pulse Ox 99.6 F 84 22 168/66 98 05/18/21 23:56 05/18/21 23:56 05/18/21 23:56 05/18/21 23:56 05/19/21 08:34 General appearance: Present: no acute distress, other (intubated, on mechanical ventilation) HEART Score - HEART Score Troponin: Troponin T 0.065 ng/mL (0.00-0.029) H 04/20/21 03:32 Results - Labs CBC & Chem 7: 05/19/21 07:40 05/19/21 07:40 Labs: Laboratory Last Values WBC 8.7 K/mm3 (4.5-11.0) 05/19/21 07:40 RBC 2.55 M/mm3 (3.65-5.03) L 05/19/21 07:40 Hgb 8.1 gm/dl (10.1-14.3) L 05/19/21 07:40 Hct 24.4 % (30.3-42.9) L 05/19/21 07:40 MCV 96 fl (79-97) 05/19/21 07:40 MCH 32 pg (28-32) 05/19/21 07:40 MCHC 33 % (30-34) 05/19/21 07:40 RDW 16.5 % (13.2-15.2) H 05/19/21 07:40 Plt Count 275 K/mm3 (140-440) 05/19/21 07:40 Lymph % (Auto) 21.1 % (13.4-35.0) 05/15/21 05:51 [place] % (Auto) 15.3 % (0.0-7.3) H 05/15/21 05:51 Eos % (Auto) 2.9 % (0.0-4.3) 05/15/21 05:51 Baso % (Auto) 0.4 % (0.0-1.8) 05/15/21 05:51 Lymph # (Auto) 1.5 K/mm3 (1.2-5.4) 05/15/21 05:51 [place] # (Auto) 1.1 K/mm3 (0.0-0.8) H 05/15/21 05:51 Eos # (Auto) 0.2 K/mm3 (0.0-0.4) 05/15/21 05:51 Baso # (Auto) 0.0 K/mm3 (0.0-0.1) 05/15/21 05:51 Add Manual Diff Complete 05/01/21 07:11 Total Counted 100 05/01/21 07:11 Seg Neutrophils % 60.3 % (40.0-70.0) 05/15/21 05:51 Seg Neuts % (Manual) 80.0 % (40.0-70.0) H 05/01/21 07:11 Band Neutrophils % 7.0 % 05/01/21 07:11 Lymphocytes % (Manual) 5.0 % (13.4-35.0) L 05/01/21 07:11 Monocytes % (Manual) 6.0 % (0.0-7.3) 05/01/21 07:11 Eosinophils % (Manual) 1.0 % (0.0-4.3) 05/01/21 07:11 Metamyelocytes % 1.0 % 05/01/21 07:11 Nucleated RBC % Not Reportable 05/01/21 07:11 Seg Neutrophils # 4.3 K/mm3 (1.8-7.7) 05/15/21 05:51 Seg Neutrophils # Man 9.8 K/mm3 (1.8-7.7) H 05/01/21 07:11 Band Neutrophils # 0.9 K/mm3 05/01/21 07:11 Lymphocytes # (Manual) 0.6 K/mm3 (1.2-5.4) L 05/01/21 07:11 Abs React Lymphs (Man) 0.0 K/mm3 05/01/21 07:11 Monocytes # (Manual) 0.7 K/mm3 (0.0-0.8) 05/01/21 07:11 Eosinophils # (Manual) 0.1 K/mm3 (0.0-0.4) 05/01/21 07:11 Basophils # (Manual) 0.0 K/mm3 (0.0-0.1) 05/01/21 07:11 Metamyelocytes # 0.1 K/mm3 05/01/21 07:11 Myelocytes # 0.0 K/mm3 05/01/21 07:11 Promyelocytes # 0.0 K/mm3 05/01/21 07:11 Blast Cells # 0.0 K/mm3 05/01/21 07:11 WBC Morphology Not Reportable 05/01/21 07:11 Hypersegmented Neuts Not Reportable 05/01/21 07:11 Hyposegmented Neuts Not Reportable 05/01/21 07:11 Hypogranular Neuts Not Reportable 05/01/21 07:11 Smudge Cells Not Reportable 05/01/21 07:11 Toxic Granulation Not Reportable 05/01/21 07:11 Toxic Vacuolation Not Reportable 05/01/21 07:11 Dohle Bodies Not Reportable 05/01/21 07:11 Pelger-Huet Anomaly Not Reportable 05/01/21 07:11 [place] Rods Not Reportable 05/01/21 07:11 Platelet Estimate Consistent w auto 05/01/21 07:11 Clumped Platelets Not Reportable 05/01/21 07:11 Plt Clumps, EDTA Not Reportable 05/01/21 07:11 Large Platelets Not Reportable 05/01/21 07:11 Giant Platelets Not Reportable 05/01/21 07:11 Platelet Satelliting Not Reportable 05/01/21 07:11 Plt Morphology Comment Not Reportable 05/01/21 07:11 RBC Morphology Normal 05/01/21 07:11 Dimorphic RBCs Not Reportable 05/01/21 07:11 Polychromasia Not Reportable 05/01/21 07:11 Hypochromasia Not Reportable 05/01/21 07:11 Poikilocytosis Not Reportable 05/01/21 07:11 Anisocytosis Not Reportable 05/01/21 07:11 Microcytosis Not Reportable 05/01/21 07:11 Macrocytosis Not Reportable 05/01/21 07:11 Spherocytes Not Reportable 05/01/21 07:11 Pappenheimer Bodies Not Reportable 05/01/21 07:11 Sickle Cells Not Reportable 05/01/21 07:11 Target Cells Not Reportable 05/01/21 07:11 Tear Drop Cells Not Reportable 05/01/21 07:11 Ovalocytes Not Reportable 05/01/21 07:11 Helmet Cells Not Reportable 05/01/21 07:11 [place] Bodies Not Reportable 05/01/21 07:11 [place] Rings Not Reportable 05/01/21 07:11 Theo Cells Not Reportable 05/01/21 07:11 Bite Cells Not Reportable 05/01/21 07:11 Crenated Cell Not Reportable 05/01/21 07:11 Elliptocytes Not Reportable 05/01/21 07:11 Acanthocytes (Spur) Not Reportable 05/01/21 07:11 Rouleaux Not Reportable 05/01/21 07:11 Hemoglobin C Crystals Not Reportable 05/01/21 07:11 Schistocytes Not Reportable 05/01/21 07:11 Malaria parasites Not Reportable 05/01/21 07:11 James Bodies Not Reportable 05/01/21 07:11 Hem Pathologist Commnt No 05/01/21 07:11 PT 14.8 Sec. (12.2-14.9) 05/07/21 08:20 INR 1.11 (0.87-1.13) 05/07/21 08:20 APTT 31.8 Sec. (24.2-36.6) 04/15/21 17:20 ABG pH 7.417 (7.320-7.450) 05/17/21 21:04 POC ABG pCO2 41.2 mmHg (32.0-48.0) 05/17/21 21:04 POC ABG pO2 88.3 mmHg (83-108) 05/17/21 21:04 POC ABG HCO3 25.9 05/17/21 21:04 ABG O2 Saturation 97.0 (0-100) 05/17/21 21:04 POC ABG Base Excess 1.3 05/17/21 21:04 ABG Hemoglobin 9.2 (12.0-17.5) L 05/17/21 21:04 ABG Oxyhemoglobin 96.1 (94-98) 05/17/21 21:04 ABG Methemoglobin 0.3 (0.0-1.5) 05/17/21 21:04 ABG Sodium 136.3 mmol/L (136.0-145.0) 05/17/21 21:04 ABG Potassium 3.7 mmol/L (3.40-4.50) 05/17/21 21:04 ABG Chloride 104.0 mmol/L (98-107) 05/17/21 21:04 ABG Glucose 160 mg/dL (65-95) H 05/17/21 21:04 Carboxyhemoglobin 0.6 (0.5-1.5) 05/17/21 21:04 FiO2 % 28.0 05/17/21 21:04 Sodium 136 mmol/L (137-145) L 05/19/21 07:40 Potassium 4.2 mmol/L (3.6-5.0) 05/19/21 07:40 Chloride 100.9 mmol/L (98-107) 05/19/21 07:40 Carbon Dioxide 24 mmol/L (22-30) 05/19/21 07:40 Anion Gap 15 mmol/L 05/19/21 07:40 BUN 37 mg/dL (7-17) H 05/19/21 07:40 Creatinine 2.0 mg/dL (0.6-1.2) H 05/19/21 07:40 Estimated GFR 29 ml/min 05/19/21 07:40 BUN/Creatinine Ratio 19 % 05/19/21 07:40 Glucose 163 mg/dL (65-100) H 05/19/21 07:40 POC Glucose 151 mg/dL (70-105) H 05/19/21 06:22 Lactic Acid 1.10 mmol/L (0.7-2.0) 04/26/21 09:30 Calcium 9.7 mg/dL (8.4-10.2) 05/19/21 07:40 Phosphorus 2.60 mg/dL (2.5-4.5) 04/22/21 08:00 Magnesium 2.10 mg/dL (1.7-2.3) 04/23/21 07:02 Total Bilirubin 0.30 mg/dL (0.1-1.2) 04/28/21 04:13 Direct Bilirubin < 0.2 mg/dL (0-0.2) 04/28/21 04:13 Indirect Bilirubin 0.1 mg/dL 04/28/21 04:13 AST 61 units/L (5-40) H 04/28/21 04:13 ALT 64 units/L (7-56) H 04/28/21 04:13 Alkaline Phosphatase 95 units/L (35-129) 04/28/21 04:13 Ammonia 46.0 umol/L (25-60) 04/15/21 17:20 Total Creatine Kinase 63 units/L (30-135) 05/17/21 07:43 CK-MB (CK-2) 9.1 ng/mL (0.0-4.0) H 04/17/21 15:35 CK-MB (CK-2) Rel Index 1.4 (0-4) 04/17/21 15:35 Troponin T 0.065 ng/mL (0.00-0.029) H 04/20/21 03:32 NT-Pro-B Natriuret Pep 697.9 pg/mL (0-900) 04/15/21 17:20 Total Protein 6.2 g/dL (6.3-8.2) L 04/28/21 04:13 Albumin 2.6 g/dL (3.9-5) L 04/28/21 04:13 Albumin/Globulin Ratio 0.7 % 04/28/21 04:13 Triglycerides 103 mg/dL (2-149) 04/17/21 05:04 Cholesterol 122 mg/dL (50-199) 04/17/21 05:04 LDL Cholesterol Direct 55 mg/dL (50-130) 04/17/21 05:04 HDL Cholesterol 61 mg/dL (40-59) H 04/17/21 05:04 Cholesterol/HDL Ratio 2.00 % 04/17/21 05:04 Procalcitonin 0.20 ng/mL (<0.15) 04/16/21 19:01 TSH 14.190 mlU/mL (0.270-4.200) H 04/15/21 17:20 Thyroxine (T4) 4.1 ug/dL (4.0-12.0) 04/16/21 19:01 Free T3 Index 1.1 pg/mL (2.3-4.2) L 04/16/21 19:01 Arterial Blood Glucose 160 mg/dL (65-95) H 05/17/21 21:04 Arterial Blood Ionized Calcium 4.9 mg/dL (4.6-5.3) 05/17/21 21:04 Urine Color Yellow (Yellow) 04/30/21 17:45 Urine Turbidity Cloudy (Clear) 04/30/21 17:45 Urine pH 5.0 (5.0-7.0) 04/30/21 17:45 Ur Specific [place] 1.016 (1.003-1.030) 04/30/21 17:45 Urine Protein 100 mg/dl mg/dL (Negative) 04/30/21 17:45 Urine Glucose (UA) Neg mg/dL (Negative) 04/30/21 17:45 Urine Ketones Neg mg/dL (Negative) 04/30/21 17:45 Urine Blood Mod (Negative) 04/30/21 17:45 Urine Nitrite Neg (Negative) 04/30/21 17:45 Urine Bilirubin Neg (Negative) 04/30/21 17:45 Urine Urobilinogen < 2.0 mg/dL (<2.0) 04/30/21 17:45 Ur Leukocyte Esterase Mod (Negative) 04/30/21 17:45 Urine WBC (Auto) 48.0 /HPF (0.0-6.0) H 04/30/21 17:45 Urine RBC (Auto) 103.0 /HPF (0.0-6.0) 04/30/21 17:45 U Epithel Cells (Auto) < 1.0 /HPF (0-13.0) 04/16/21 00:09 Urine Bacteria (Auto) 1+ /HPF (Negative) 04/16/21 00:09 Urine Mucus Few /HPF 04/30/21 17:45 Urine Yeast (Budding) 3+ /HPF 04/30/21 17:45 Urine Creatinine 104.7 mg/dL (0.1-20.0) H 05/18/21 06:45 Urine Sodium 81 mmol/L 05/18/21 06:45 Random Vancomycin 15.5 ug/mL (0-40.0) 04/27/21 07:52 Salicylates 4.1 mg/dL (2.8-20.0) 04/15/21 17:20 Acetaminophen 5.0 ug/mL (10.0-30.0) L 04/15/21 17:20 Plasma/Serum Alcohol 0.02 % (0-0.07) 04/15/21 17:20 Coronavirus (PCR) Negative (Negative) 04/16/21 Unknown Blood Type B POSITIVE 05/14/21 19:00 Antibody Screen Negative 05/14/21 19:00 Crossmatch See Detail 05/14/21 19:00 Kerr/IV: Voiding Method Indwelling Catheter Active Medications - Current Medications Current Medications: Generic Name Dose Route Start Last Admin Trade Name Freq PRN Reason Stop Dose Admin Acetaminophen 650 mg 04/15/21 19:11 05/17/21 12:33 Acetaminophen 325 Mg Tab PO 650 mg Q6H PRN Administration Pain MILD(1-3)/Fever >100.5/SEXTON Albuterol 2.5 mg 05/09/21 13:16 05/16/21 09:40 Albuterol 2.5 Mg/3 Ml Nebu IH 2.5 mg Q6HRT PRN Administration Shortness Of Breath Amlodipine Besylate 2.5 mg 05/18/21 10:00 05/19/21 09:45 Amlodipine 5 Mg Tab PO 2.5 mg QDAY WOLFGANG Administration Lipase/Protease/Amylase 1 each 04/16/21 12:52 Lipase 10,500/Protease 25,000/Amylase 43,750 (Units) Dr Simpson FEEDTUBE PRN PRN For Clogged Feeding Tube Aspirin 81 mg 04/25/21 10:00 05/19/21 09:45 Aspirin 81 Mg Tab Chew PO 81 mg QDAY WOLFGANG Administration Bisacodyl 10 mg 04/17/21 11:01 05/03/21 09:50 Bisacodyl 10 Mg Rect Supp IN 10 mg QDAY PRN Administration Constipation Brimonidine Tartrate 1 drops 04/17/21 22:00 05/19/21 09:46 Brimonidine 0.15% Ophth Soln OU 1 drops BID WOLFGANG Administration Docusate Sodium 100 mg 04/29/21 15:00 05/19/21 09:45 Docusate Sodium 100 Mg/10 Ml Oral Liqd PO 100 mg BID WOLFGANG Administration Famotidine 20 mg 04/17/21 10:00 05/19/21 09:44 Famotidine 20 Mg Tab PO 20 mg DAILY WOLFGANG Administration Glycopyrrolate 1 mg 05/17/21 20:00 05/19/21 09:44 Glycopyrrolate 1 Mg Tab PO 1 mg TID WOLFGANG Administration Heparin Sodium (Porcine) 5,000 unit 04/15/21 22:00 05/19/21 09:45 Heparin 5,000 Unit/1 Ml Vial SUB-Q 5,000 unit Q12HR [facility] Administration Hydralazine HCl 10 mg 04/16/21 18:00 05/19/21 06:36 Hydralazine 20 Mg/1 Ml Inj IV 10 mg Q4HR PRN Administration Hypertension Hydrophilic Ointment 1 applic 04/15/21 17:24 Lip Therapy Vaseline TP Q2HR PRN Dry Lips Insulin Human Isoph/Insulin Regular 25 unit 05/09/21 08:00 05/19/21 09:45 Insulin Nph/Regular 70/30 Inj SUB-Q 25 unit BIDDIAB [facility] Administration Insulin Human Lispro 0 unit 04/16/21 15:00 05/19/21 06:37 Insulin Lispro 100 Unit/Ml SUB-Q 3 unit Q6HR [facility] Administration Protocol Latanoprost 1 drops 04/17/21 18:00 05/18/21 18:44 Latanoprost 0.005% Ophth Soln 2.5 Ml OU 1 drops QPM [facility] Administration Levothyroxine Sodium 25 mcg 04/19/21 06:00 05/19/21 06:37 Levothyroxine 25 Mcg Tab PO 25 mcg DAILY@0600 [facility] Administration Lorazepam 2 mg 05/13/21 09:30 Lorazepam 2 Mg/Ml Vial IV Q4H PRN Agitation Midodrine 10 mg 05/17/21 16:00 05/19/21 09:45 Midodrine 5 Mg Tab PO 10 mg TID@0800,1200,1600 [facility] Administration Multi-Ingred Cream/Lotion/Oil/Oint 1 applic 04/15/21 17:24 05/17/21 21:31 Mineral Oil/Petrolatum, White Ophth Oint 3.5 Gm OU 1 applic Q4HR PRN Administration Dry Eye(s) Pravastatin Sodium 20 mg 04/19/21 22:00 05/18/21 21:15 Pravastatin 20 Mg Tab PO 20 mg QHS [facility] Administration Scopolamine 1 each 04/20/21 18:00 05/17/21 09:33 Scopolamine Transdermal Patch 72 Hr TD 1 each Q3D [facility] Administration Simple Syrup 15 ml 04/16/21 12:52 Simple Syrup 15 Ml FEEDTUBE PRN PRN Hypoglycemia Simple Syrup 30 ml 04/16/21 12:52 Simple Syrup 15 Ml FEEDTUBE PRN PRN Hypoglycemia Sodium Bicarbonate 325 mg 04/16/21 12:52 Sodium Bicarbonate 325 Mg Tab FEEDTUBE PRN PRN For Clogged Feeding Tube Sodium Chloride 10 ml 04/15/21 22:00 05/19/21 09:46 Sodium Chloride 0.9% 10 Ml Flush Syringe IV 10 ml BID [facility] Administration Sodium Chloride 10 ml 04/15/21 19:11 05/19/21 06:38 Sodium Chloride 0.9% 10 Ml Flush Syringe IV 10 ml PRN PRN Administration LINE FLUSH Tamsulosin HCl 0.4 mg 04/25/21 14:00 05/19/21 09:45 Tamsulosin 0.4 Mg Cap PO 0.4 mg QDAY [facility] Administration Timolol Maleate 1 drops 04/19/21 10:00 05/19/21 09:46 Timolol 0.5% Ophth Soln 5 Ml OU 1 drops QDAY [facility] Administration Nutrition/Malnutrition Assess - Dietary Evaluation Nutrition/Malnutrition Findings: Nutrition Notes Start: 04/16/21 12:31 Freq: Status: Active Protocol: Document 05/18/21 11:58 CW (Rec: 05/18/21 12:05 CW [id number]) Nutrition Notes Initial or Follow up Reassessment Current Diagnosis Acute Kidney Injury,Coronary Artery Disease,Diabetes, Hypertension Other Pertinent Diagnosis Ileus, UTI, acute metabolic encephalopathy Current Diet TF-Nepro at 35 ml/hr Labs/Tests BUN 42 Cr 2.1 BG 154 Pertinent Medications Humulin Colace NS at 75 ml/hr + 1L Height 5 ft 6 in Weight 94.6 kg [place] Body Weight (kg) 59.09 BMI 33.6 Weight Status Obese Subjective/Other Information FU for TF tolerance. TF changed to Nepro. TF running Nepro at 40 ml/hr. Error in order corrected to reflect accurate rate of 35 ml/hr. No reports of TF intolerance. Percent of energy/protein needs met: 100%/100% (Nepro at 40ml/hr) Burn Absent Trauma Absent Difficulty In Swallowing Current % PO Negligible Minimum of two criteria No physical signs of malnutrition #1 Nutrition Diagnosis Inadequate oral intake Diagnosis Progress(for reassessment Continues documentation) Is patient on ventilator? No Is Patient Ambulatory and/or Out of Bed No REE-([facility]-confined to bed) 1714.032 Kcal/Kg value to use for calculation 15 Approximate Energy Requirements Using 1419 kcal/Kg Calculation Used for Recommendations Kcal/kg Additional Notes Pro needs 1-1.2g/kg AdjBW: 76kg (76-91g) Fluid needs 1ml/kcal Nutrition Intervention Change Diet Order: Continue Nepro Nutrition Support: Nepro 1.8 at 35 ml/hr Flush 150 ml q4h Kcal 1,512 Protein (gm) 68 Fluid (mL) 611 Goal #1 Start and tolerate new TF Goal #2 Meet at lest 75% of kcal adn protein needs via TF Anticipated Discharge Needs: Continuous TF Follow-Up By: 05/22/21 Additional Comments F/U for TF tolerance
--- NOTE | 2021-05-19 10:28 | XRay Report ---
XR chest 1V ap INDICATION / CLINICAL INFORMATION: chest congestion/ eval for edema. COMPARISON: 05/10/2021 FINDINGS: SUPPORT DEVICES: Tracheostomy device is stable. HEART /PULMONARY VASCULATURE: Unchanged LUNGS / PLEURA: Patchy pulmonary airspace opacities persist within the right perihilar region and lef t lung base. No sizable pleural effusion. No pneumothorax. ADDITIONAL FINDINGS: No significant additional findings. IMPRESSION: Stable bibasilar pulmonary opacities, most likely reflects atelectasis/pneumonia, rather than pulmona ry edema. Signer Name: Nicolas Acuna MD Signed: 05/19/2021 10:24 AM Workstation Name: [id number]
--- NOTE | 2021-05-19 11:12 | Progress Note ---
Assessment and Plan 1. Acute kidney injury: Vasomotor ROJELIO. ATN likely. Renal US negative for hydro. Baseline renal function is unknown. Monitor renal function. Non-oliguric. Creatinine leveled off. Avoid nephrotoxic agents. Meds dosage based on GFR. 2. FEN: Hypokalemia, improved, monitor. Hypernatremia, improved, monitor. Monitor lytes and volume status. 3. Acute hypoxemic respiratory failure: Extubated, re-intubated 04/24. Trached 05/07. On T-piece. 4. Acute encephalopathy: MRI brain negative. Seen by Neuro. 5. UTI: Treated. 6. Hypertension. 7. DM type 2. 8. Mild rhabdomyolysis: Improved. 9. Mildly complex R renal cyst: Further testing once patient is more stable. Explained patient's niece(05/18) at the bedside about follow up evaluation. Subjective: Patient was seen and examined at the bedside. Examination: General appearance: well-developed, appears stated age, trached on T-piece HEENT: atraumatic Neck: trached Respiratory: Coarse breath sounds heard Heart: S1S2, no murmur Abdomen: soft, obese, bowel sounds heard, NT, PEG tube noted Integumentary: no obvious rash Neurologic: opens eyes Ext: no edema noted Subjective Date of service: 05/19/21 Principal diagnosis: Ac. resp failure; AMS; Hypoglycemia; ROJELIO; Hyperkalemia; DM II Objective - Vital Signs Vital signs: Vital Signs - 12hr 05/18/21 05/19/21 05/19/21 23:56 00:15 07:53 Temperature 99.6 F Pulse Rate 84 Respiratory 22 Rate Blood Pressure 168/66 O2 Sat by Pulse 97 100 100 Oximetry O2 Sat by Pulse 100 100 Oximetry [ Assessment] 05/19/21 08:34 Temperature Pulse Rate Respiratory Rate Blood Pressure O2 Sat by Pulse 98 Oximetry O2 Sat by Pulse Oximetry [ Assessment] - Lab 05/20/21 05:18 05/21/21 05:19 Most recent lab results ABG pH 7.417 (7.320-7.450) 05/17/21 21:04 ABG O2 Saturation 97.0 (0-100) 05/17/21 21:04 Calcium 9.7 mg/dL (8.4-10.2) 05/19/21 07:40 Phosphorus 2.60 mg/dL (2.5-4.5) 04/22/21 08:00 Magnesium 2.10 mg/dL (1.7-2.3) 04/23/21 07:02 Urine Creatinine 104.7 mg/dL (0.1-20.0) H 05/18/21 06:45 Urine Sodium 81 mmol/L 05/18/21 06:45 Medications & Allergies - Medications Allergies/Adverse Reactions: Allergies No Known Allergies Allergy (Unverified 04/15/21 17:41) Home Medications: Home Medications Medication Instructions Recorded Confirmed Last Taken Type Betaxolol HCl [Betoptic S 0.25% 1 drop OU BID 04/16/21 04/16/21 Unknown History SUSP] Bimatoprost [Lumigan 0.01%] 1 drop OU QPM 04/16/21 04/16/21 Unknown History Brimonidine Tartrate [Brimonidine 5 ml OU BID 04/16/21 04/16/21 Unknown History Tartrate 0.2%] Furosemide [Lasix TAB] 40 mg PO QDAY 04/16/21 04/16/21 Unknown History Gabapentin [Neurontin] 300 mg PO Q8HR 04/16/21 04/16/21 Unknown History HYDROcodone/APAP 10-325 [[place] 1 each PO Q6HR PRN 04/16/21 04/16/21 Unknown History 10/325] Hydralazine HCl 50 mg PO Q4HR 04/16/21 04/16/21 Unknown History Insulin Aspart Prot/Insuln Asp 52 units SQ HS 04/16/21 04/16/21 Unknown History [Novolog Mix 70-30 Flexpen] Metoprolol [Lopressor] 25 mg PO BID 04/16/21 04/16/21 Unknown History Pravastatin [Pravachol] 20 mg PO QHS 04/16/21 04/16/21 Unknown History Promethazine [Phenergan] 25 mg PO Q6HR 04/16/21 04/16/21 Unknown History allopurinoL [Zyloprim] 150 mg PO QDAY 04/16/21 04/16/21 Unknown History Active Medications: Generic Name Dose Route Start Last Admin Trade Name Freq PRN Reason Stop Dose Admin Acetaminophen 650 mg 04/15/21 19:11 05/17/21 12:33 Acetaminophen 325 Mg Tab PO 650 mg Q6H PRN Administration Pain MILD(1-3)/Fever >100.5/SEXTON Albuterol 2.5 mg 05/09/21 13:16 05/16/21 09:40 Albuterol 2.5 Mg/3 Ml Nebu IH 2.5 mg Q6HRT PRN Administration Shortness Of Breath Amlodipine Besylate 2.5 mg 05/18/21 10:00 05/19/21 09:45 Amlodipine 5 Mg Tab PO 2.5 mg QDAY [facility] Administration Lipase/Protease/Amylase 1 each 04/16/21 12:52 Lipase 10,500/Protease 25,000/Amylase 43,750 (Units) Dr Simpson FEEDTUBE PRN PRN For Clogged Feeding Tube Aspirin 81 mg 04/25/21 10:00 05/19/21 09:45 Aspirin 81 Mg Tab Chew PO 81 mg QDAY [facility] Administration Bisacodyl 10 mg 04/17/21 11:01 05/03/21 09:50 Bisacodyl 10 Mg Rect Supp DE 10 mg QDAY PRN Administration Constipation Brimonidine Tartrate 1 drops 04/17/21 22:00 05/19/21 09:46 Brimonidine 0.15% Ophth Soln OU 1 drops BID [facility] Administration Docusate Sodium 100 mg 04/29/21 15:00 05/19/21 09:45 Docusate Sodium 100 Mg/10 Ml Oral Liqd PO 100 mg BID [facility] Administration Famotidine 20 mg 04/17/21 10:00 05/19/21 09:44 Famotidine 20 Mg Tab PO 20 mg DAILY [facility] Administration Glycopyrrolate 1 mg 05/17/21 20:00 05/19/21 09:44 Glycopyrrolate 1 Mg Tab PO 1 mg TID [facility] Administration Heparin Sodium (Porcine) 5,000 unit 04/15/21 22:00 05/19/21 09:45 Heparin 5,000 Unit/1 Ml Vial SUB-Q 5,000 unit Q12HR [facility] Administration Hydralazine HCl 10 mg 04/16/21 18:00 05/19/21 06:36 Hydralazine 20 Mg/1 Ml Inj IV 10 mg Q4HR PRN Administration Hypertension Hydrophilic Ointment 1 applic 04/15/21 17:24 Lip Therapy Vaseline TP Q2HR PRN Dry Lips Insulin Human Isoph/Insulin Regular 25 unit 05/09/21 08:00 05/19/21 09:45 Insulin Nph/Regular 70/30 Inj SUB-Q 25 unit BIDDIAB [facility] Administration Insulin Human Lispro 0 unit 04/16/21 15:00 05/19/21 06:37 Insulin Lispro 100 Unit/Ml SUB-Q 3 unit Q6HR [facility] Administration Protocol Latanoprost 1 drops 04/17/21 18:00 05/18/21 18:44 Latanoprost 0.005% Ophth Soln 2.5 Ml OU 1 drops QPM [facility] Administration Levothyroxine Sodium 25 mcg 04/19/21 06:00 05/19/21 06:37 Levothyroxine 25 Mcg Tab PO 25 mcg DAILY@0600 [facility] Administration Lorazepam 2 mg 05/13/21 09:30 Lorazepam 2 Mg/Ml Vial IV Q4H PRN Agitation Midodrine 10 mg 05/17/21 16:00 05/19/21 09:45 Midodrine 5 Mg Tab PO 10 mg TID@0800,1200,1600 [facility] Administration Multi-Ingred Cream/Lotion/Oil/Oint 1 applic 04/15/21 17:24 05/17/21 21:31 Mineral Oil/Petrolatum, White Ophth Oint 3.5 Gm OU 1 applic Q4HR PRN Administration Dry Eye(s) Pravastatin Sodium 20 mg 04/19/21 22:00 05/18/21 21:15 Pravastatin 20 Mg Tab PO 20 mg QHS [facility] Administration Scopolamine 1 each 04/20/21 18:00 05/17/21 09:33 Scopolamine Transdermal Patch 72 Hr TD 1 each Q3D [facility] Administration Simple Syrup 15 ml 04/16/21 12:52 Simple Syrup 15 Ml FEEDTUBE PRN PRN Hypoglycemia Simple Syrup 30 ml 04/16/21 12:52 Simple Syrup 15 Ml FEEDTUBE PRN PRN Hypoglycemia Sodium Bicarbonate 325 mg 04/16/21 12:52 Sodium Bicarbonate 325 Mg Tab FEEDTUBE PRN PRN For Clogged Feeding Tube Sodium Chloride 10 ml 04/15/21 22:00 05/19/21 09:46 Sodium Chloride 0.9% 10 Ml Flush Syringe IV 10 ml BID [facility] Administration Sodium Chloride 10 ml 04/15/21 19:11 05/19/21 06:38 Sodium Chloride 0.9% 10 Ml Flush Syringe IV 10 ml PRN PRN Administration LINE FLUSH Tamsulosin HCl 0.4 mg 04/25/21 14:00 05/19/21 09:45 Tamsulosin 0.4 Mg Cap PO 0.4 mg QDAY [facility] Administration Timolol Maleate 1 drops 04/19/21 10:00 05/19/21 09:46 Timolol 0.5% Ophth Soln 5 Ml OU 1 drops QDAY [facility] Administration
[2021-05-19] MEDS: LATANOPROST 0.005% OPHTH SOLN 2.5 ML OU SCH (18:02)
[2021-05-19] MEDS: PRAVASTATIN 20 MG TAB PO SCH (21:30)
[2021-05-20] MEDS: INSULIN LISPRO 100 UNIT/ML SUB-Q SCH ×4 (01:28→17:37)
[2021-05-20 05:53] LABS: Hematocrit 24.6 % (30.3-42.9); Mean Corpuscular HGB Conc 33 % (30-34); Mean Corpuscular Volume 95 fl (79-97); Platelet Count 253 K/mm3 (140-440); Red Blood Count 2.59 M/mm3 (3.65-5.03); Red Cell Distribution Width 16.1 % (13.2-15.2)
[2021-05-20] MEDS: hydrALAZINE 20 MG/1 ML INJ IV PRN ×2 (05:56→23:43)
[2021-05-20] MEDS: LEVOTHYROXINE 25 MCG TAB PO SCH (05:57)
[2021-05-20 06:05] LABS: Calcium 9.6 mg/dL (8.4-10.2)
[2021-05-20] MEDS: MIDODRINE 5 MG TAB PO SCH ×3 (07:48→17:35)
--- NOTE | 2021-05-20 08:30 | Progress Note ---
Assessment and Plan Assessment and plan: This is a 80-year-old female with HTN, DM, NM, breast CA s/p double mastectomy, TIA who presented with hypoglycemia, AMS who was admitted with SIRS, symptomatic bradycardia, acute metabolic encephalopathy, acute hypoxic respiratory failure, elevated TSH, hyperglycemia, hyponatremia, hypokalemia, ROJELIO and rhabdomyolysis Acute metabolic encephalopathy-persist Acute hypoxic respiratory failure (extubated 04/20)- Re-intubated secondary to Stridor and paradoxical breathing - s/p trach and PEG First-degree heart block Resolved ileus versus mechanical obstruction Acute kidney injury with vasomotor nephropathy UTI, Pseudomonas/ Earline Elevated TSH Mild rhabdomyolysis Hypertension Diabetes mellitus with hyperglycemia on admission CAD Hypothyroidism Chronic illness debilitymyopathy Obesity Debility Urinary retention -CCM, nephrology, neurology, cardiology consulted, patient recommendations -S/p D10 and D5W gtt, on TF -S/p IV calcium gluconate, regular insulin, D50 -S/p transcutaneous pacing, intermittent demand pacer in place -Renal ultrasound findings consistent with acute on chronic kidney disease, mildly complex right renal cyst -Blood pressure monitoring per protocol -Accu-Cheks every 6, SSI, long acting insulin -IV hydralazine as needed -midodrine for hypotension, however will dial back since patient's blood pressure seems to be elevated. Will attempt to slowly taper to see if patient actually needs midodrine at this point. -04/25 EEG is mildly abnormal with mild slowing noted throughout the recording, suggestive of mild cortical dysfunction and/or drug effect -04/20 EEG shows mildly abnormal record due to diffuse background slowing noted throughout the recording, intermittent motion artifact, patient intubated and sedated at time of study, no sign of seizures as well epilepticus noted, possible toxic metabolic encephalopathy, drug effect, possible postictal state cannot be totally excluded. -Avoid ACEi/ARB in setting of ROJELIO -Avoid AV arron blocking agents -Avoid nephrotoxic agents and renally dose medications -BB, hydralazine, amlodipine -TSH 14.1, T4 4.1, T3 1.1-started on levothyroxine -As needed racemic epinephrine -S/p steroids -s/p Antibiotic therapy -Trend CBC, BMP as needed PT/OT/ST to evaluate the patient Bladder scans as needed Repeat chest x-ray showing atelectasis, doubt its pneumonia DVT/GI prophylaxis: Heparin subcu, PPI, SCDs to bilateral lower extremities while in bed Disposition: Placement is an issue at this time, PT notes state patient needs LTAC but has been denied. Working with community case manager and family to arrange the best options for the patient. History Interval history: 04/16: Neurology consulted, COVID-19 PCR negative, D10 drip decreased and eventually discontinued by [facility] and started on D5W for 1 L. Hydralazine as needed. Patient had hyper kalemia today and was treated with D50, insulin and Kayexalate. This time examination patient is on assist control tidal volume 450, rate of 16, PEEP of 6 and 25% FiO2. 04/17: Patient started on low-dose beta-angel per cardiology, CPAP trial again per [facility], BUN/creatinine holding steady and hypochloremia/hyponatremia slightly improved and hypokalemia has resolved. This morning a KUB was obtained which was concerning for ileus versus mechanical obstruction and surgery was consulted. Patient was made n.p.o. and NG tube placed to wall suction. Patient was given suppository. Per RN patient did not have a BM even though she was given Kayexalate yesterday. Will obtain a KUB in the a.m. Neurology was consulted yesterday and will await further recommendations. Nephew updated at bedside today, Carlos Romero. 04/18: Neurology has ordered EEG/MRI B, [facility] continues to wean MV. Persistent low grade temperature so we will obtain BCx2/UA. Patient has improving leukocytosis, hyponatremia, renal function studies and hypochloremia. She has hypokalemia today which is being repleted. Surgery has signed off today and has okayed resumption of TF. [facility] will trial CPAP for longer today and plans to attempt extubation in AM. Family has requested transfer to [facility] and Dr. Gordon will attempt to contact transfer center. I updated her nephew, Camrynshahnaz Romero over the phone today abouyt current events and update on transfer ([facility] will conduct a utilization review) 04/19: This morning patient is on CPAP trial at the time of examination, noted to be hypertensive and metoprolol increased to home dose, started on synthroid by [facility], lantus started re hyperglycemia, MRI completed with no acute findings. Severe hypokalemia (repleted and Mg pending). [facility] will contact CPAP trial again today with possible trial extubation tomorrow. 04/20: Patient's leukocytosis and kidney function tests continue to improve. Patient is hypertensive overnight we will restart home hydralazine. [facility] plans to extubate patient today. Family is attempting to transfer to another facility. EEG pending, RT will atmept to contact service technician copier. Urine culture grew gram negative rods. Increase in lantus 04/21: Increase in Lantus, repleted phos. Patient has started this afternoon and was given racemic epinephrine and started on steroids. Patient will have BiPAP as needed. We will recheck BMP in the a.m. renal function studies continues to decrease. Patient has been hypertensive on evaluation regimen has been changed. 04/22: Lantus increased for hyperglycemia and add amlodipine for better BP control. Patient is on steroids. OT suctioned by RN with catheter in oral care kit and received copious amounts of secretions. Cr continues to decrease. Culture grew Pseudomonas and was changed in accordance to sensitivity. Kerr removed today after clearance from nephrology. 04/23: MRI of the brain was done and unremarkable. Will obtain reconsult to nephrology for further assistance as patient remains in profound encephalopathy despite improvement of blood sugar. Will repeat chest x-ray as patient does sexton ve significant congestion physical exam. Tube feeds still ongoing. Continue aspiration precautions. Continue antibiotics when completed for Pseudomonas management 04/24: Neurology input noted, patient unfortunately with no improvement mental status milton, continues with congestion, will defer with Knitting Machine Fixer Head for lasix in the setting of renal failure. will give kayexlate for hyperkalemia, still moans and groans, mittens in place. 04/25: Patient currently intubated, on restraints for safety, Profund encephalopathy persist, although awake she is not following any commands, Call placed to [facility] to see if they will accept transfer for ENT evaluation, while CT neck was negative, it was degraded by motion and unable to determent why patient had this stridor, Racemic Epinephrine was given, [facility] is on ICU saturation, but will call back with an ENT to discuss case. Renal function mildly worse, continue to monitor. Per cardiology, no further arrhythmias noted since admission. Given short duration of atrial fibrillation, along with pt's age, renal fxn, and other co- morbidities,...will resume additional medical therapies for underlying severe multi-vessel CAD (bASA & Plavix). Pt has previously declined intervention of known lesions as per her Primary High Lift Operator. 04/26: Now with febrile illness, ?developing infection, start on empiric abx, check lactate level, blood cultures, continue management per Mine Safety Manager, Monitor leukocytosis, agree with Trach, family updated about denials in transfer request from outside hospitals. 04/27: WBC improving some, still with fever despite antibotics, ID consulted. CXR clear, continue current management, Trach will be planned if ok with family. Blood sugar remains elevated, will adjust insulin LANTUS to 40 units. Patient had previously completed Cefepime. Mental status remains unchanged, still moves upper ext. continue restraints 04/28: Continue supportive care. No new fever noted. Critical care physician will determine if patient should be have a trial of extubation again or if we should proceed straight to trach. Again continue to monitor mental status for complete improvement. 04/29: Per Mine Safety Manager discussion with family, will proceed to Tracheostomy, Patients mental status still fluctuating, Continue current management. Surgeon consulted. 04/30: General surgery consulted for trach, continue to trend CBC and BMP. Ki dney function slightly worsened today. Increase in Lantus. Tmax 100.2, per ID will consider imaging if leukocytosis remains elevated with fevers. Plavix held for possible tracheostomy next week. 05/01: Patient fever curve is trending down with improving leukocytosis. Patient renal function worsened today. She remains hyperglycemic and her Lantus was increased to her home dose of Novolin 70/30. Patient was rate controlled yesterday due to T-max of 101. She remains on CMV tidal volume 450, rate of 10, PEEP of 6 and 30% FiO2. We will increase the water flushes given slight hypernatremia. Dr. Andrea updated nephew (Carlos) at bedside. CPAP trails. 05/02: Patient's hypernatremia and hyperchloremia slightly worsened and femur fractures were increased. Kidney functions remain the same however BUN is in the 100s. Nephrology is following. Kerr catheter was removed. Awaiting trach placement with possibility on Friday. 05/03: Patient grew Earline in her urine culture however per ID and the Kerr was already exchanged. Patient is on cefepime and Flagyl. Plavix still on hold awaiting trach. [facility] started the patient on half-normal saline at 75 mL/h for 2 L related to azatoma and hypernatremia. Patient mental status continues to wax and wane. Creatinine is 3.1 today from 3.4 yesterday. Patient had a bowel movement today. Patient remains hyperglycemic and Lantus was changed from a.m. to p.m.. 05/04: Patient's renal function is improving, surgery obtain consent for trach/PEG scheduled for 05/07, antibiotics to end tomorrow. We will obtain BMP in the a.m. Lantus dosage change from AC to at bedtime in hopes of better glycemic control. 05/05: Patient Lantus dose is changed to twice daily in hopes of better glycemic control. Awaiting surgical procedure hopefully on Friday. Patient's BUN/creatinine improved and hypernatremia has resolved. 05/06: Patient has slight hypernatremia and hyperchloremia and improvement to BUN/creatinine. Better glycemic control. Awaiting trach on Friday. NGT was displaced but now replaced and TF resumed. 05/07 This is a 80-year-old female with HTN, DM, NM, breast CA s/p double mastectomy, TIA who presented with hypoglycemia, AMS who was admitted with SIRS, symptomatic bradycardia, acute metabolic encephalopathy, acute hypoxic respiratory failure, elevated TSH, hyperglycemia, hyponatremia, hypokalemia, ROJELIO and rhabdomyolysis. She is for Trach and PEG today. 05/08: s/p trach and PEG placement yesterday. cont to monitor, wean off from vent as tolertaed 05/09: Patient started on tube feeding and tolerating well. Currently on CPAP setting with newly placed trach. Discussed with case management and patient would need placement. Continue supportive care and follow clinically. 05/10: Continue supportive care, patient is tolerating tube feeding diet. Remains on CPAP with trach. Pending LTAC placement. 05/11: Continue supportive care, patient is tolerating tube feeding diet. Remains on CPAP with trach. Plan to wean off from Vent as tolerates and to place on t-piece. 05/12; Patient placed on t-piece today, tolerating TF, cont to monitor clinically. follow CBC/BMP 05/13: Remains on t-piece, plan to wean off to wall T-piece. If unable to wean off from vent then patient will need criteria for LTAC upon her insurance requirement. If she tolerates weaning trial and able to maintain T-piece then she will be discharged back to shelter. Ordered for a.m. labs. Continue to follow clinically with supportive care. 05/14: Pending placement. Patient back on Mechanical ventilation today with trach tube. Hemoglobin 7.0. Will transfuse 1 unit packed RBC. Continue to monitor clinically. 05/15: Pending placement, [facility] continues to trial patient on trach collar for as long as tolerated. Patient is H/H improved to 8/24.6 after 1 unit PRBC. Renal function continues to fluctuate and is currently at CR 2/BUN 42. Patient is slightly hyperkalemic today at 5.3 and received 30 g of Kionex. We will obtain a.m. BMP and continue to trend CBC. Patient is hypertensive and hydralazine dose has been increased. 05/16: Patient noted to have hyperkalemia again today and was treated. Patient continued T-piece on 20% FiO2 for over 24 hours. This afternoon patient was noted to be off of trach collar and SPO2 was still in the mid 90s. Trach collar was replaced. We will remove Kerr catheter and BladderScan the patient every 4 hours. 05/17: Patient has been started on midodrine and given approximately 750 ML IV fluid bolus in response to hypotension. Will receive normal saline at 75 for another 2 L. Has a standing order for bladder scans every 4 and straight cath if needed. Patient will be transferred to telemetry today. 05/18: Patient is on the floor, patient is shaking her head to answering questions and moving her legs. Patient is lethargic at times. 05/19: Patient seen on floor, patient is awake, has some secretions, spoke with nurse to suction. Patient is shaking her head yes and no to my questions. 05/20: Patient seen and examined, case management and family at the bedside. No acute distress overnight, there was some secretions, and asked the nurse to suction. Repeat chest x-ray does not show any new abnormalities. Hospitalist Physical - Physical exam Narrative exam: General appearance: no acute distress, well-nourished EENT: PERRL, EOM intact, hearing intact, dry oral mucosa Neck: Tracheostomy with trach tube Respiratory: 5 L of oxygen with tracheostomy tube, minimal crackles heard on middle right lung lobe Cardiovascular: Regular rate/rhythm, Normal S1 & S2. No gallop, rub Extremities: Hands in mittens, no ischemia, No edema, normal temperature, normal color, Full ROM Abdominal: PEG tube, soft, no tenderness, non-distended, normal bowel sounds Integumentary: Present: clear, warm, dry no wounds, no erythema noted Neurologic: CNII-XII intact, patient is minimally moving her legs and arms - Constitutional Vitals: Temp Pulse Resp BP Pulse Ox 97.5 F L 89 19 184/67 98 05/20/21 04:05 05/20/21 04:05 05/20/21 04:05 05/20/21 05:56 05/20/21 07:46 HEART Score - HEART Score Troponin: Troponin T 0.065 ng/mL (0.00-0.029) H 04/20/21 03:32 Results - Labs CBC & Chem 7: 05/20/21 05:18 05/20/21 05:18 Labs: Laboratory Last Values WBC 7.6 K/mm3 (4.5-11.0) 05/20/21 05:18 RBC 2.59 M/mm3 (3.65-5.03) L 05/20/21 05:18 Hgb 8.0 gm/dl (10.1-14.3) L 05/20/21 05:18 Hct 24.6 % (30.3-42.9) L 05/20/21 05:18 MCV 95 fl (79-97) 05/20/21 05:18 MCH 31 pg (28-32) 05/20/21 05:18 MCHC 33 % (30-34) 05/20/21 05:18 RDW 16.1 % (13.2-15.2) H 05/20/21 05:18 Plt Count 253 K/mm3 (140-440) 05/20/21 05:18 Lymph % (Auto) 21.1 % (13.4-35.0) 05/15/21 05:51 Tripp % (Auto) 15.3 % (0.0-7.3) H 05/15/21 05:51 Eos % (Auto) 2.9 % (0.0-4.3) 05/15/21 05:51 Baso % (Auto) 0.4 % (0.0-1.8) 05/15/21 05:51 Lymph # (Auto) 1.5 K/mm3 (1.2-5.4) 05/15/21 05:51 Tripp # (Auto) 1.1 K/mm3 (0.0-0.8) H 05/15/21 05:51 Eos # (Auto) 0.2 K/mm3 (0.0-0.4) 05/15/21 05:51 Baso # (Auto) 0.0 K/mm3 (0.0-0.1) 05/15/21 05:51 Add Manual Diff Complete 05/01/21 07:11 Total Counted 100 05/01/21 07:11 Seg Neutrophils % 60.3 % (40.0-70.0) 05/15/21 05:51 Seg Neuts % (Manual) 80.0 % (40.0-70.0) H 05/01/21 07:11 Band Neutrophils % 7.0 % 05/01/21 07:11 Lymphocytes % (Manual) 5.0 % (13.4-35.0) L 05/01/21 07:11 Monocytes % (Manual) 6.0 % (0.0-7.3) 05/01/21 07:11 Eosinophils % (Manual) 1.0 % (0.0-4.3) 05/01/21 07:11 Metamyelocytes % 1.0 % 05/01/21 07:11 Nucleated RBC % Not Reportable 05/01/21 07:11 Seg Neutrophils # 4.3 K/mm3 (1.8-7.7) 05/15/21 05:51 Seg Neutrophils # Man 9.8 K/mm3 (1.8-7.7) H 05/01/21 07:11 Band Neutrophils # 0.9 K/mm3 05/01/21 07:11 Lymphocytes # (Manual) 0.6 K/mm3 (1.2-5.4) L 05/01/21 07:11 Abs React Lymphs (Man) 0.0 K/mm3 05/01/21 07:11 Monocytes # (Manual) 0.7 K/mm3 (0.0-0.8) 05/01/21 07:11 Eosinophils # (Manual) 0.1 K/mm3 (0.0-0.4) 05/01/21 07:11 Basophils # (Manual) 0.0 K/mm3 (0.0-0.1) 05/01/21 07:11 Metamyelocytes # 0.1 K/mm3 05/01/21 07:11 Myelocytes # 0.0 K/mm3 05/01/21 07:11 Promyelocytes # 0.0 K/mm3 05/01/21 07:11 Blast Cells # 0.0 K/mm3 05/01/21 07:11 WBC Morphology Not Reportable 05/01/21 07:11 Hypersegmented Neuts Not Reportable 05/01/21 07:11 Hyposegmented Neuts Not Reportable 05/01/21 07:11 Hypogranular Neuts Not Reportable 05/01/21 07:11 Smudge Cells Not Reportable 05/01/21 07:11 Toxic Granulation Not Reportable 05/01/21 07:11 Toxic Vacuolation Not Reportable 05/01/21 07:11 Dohle Bodies Not Reportable 05/01/21 07:11 Pelger-Huet Anomaly Not Reportable 05/01/21 07:11 Peterson Rods Not Reportable 05/01/21 07:11 Platelet Estimate Consistent w auto 05/01/21 07:11 Clumped Platelets Not Reportable 05/01/21 07:11 Plt Clumps, EDTA Not Reportable 05/01/21 07:11 Large Platelets Not Reportable 05/01/21 07:11 Giant Platelets Not Reportable 05/01/21 07:11 Platelet Satelliting Not Reportable 05/01/21 07:11 Plt Morphology Comment Not Reportable 05/01/21 07:11 RBC Morphology Normal 05/01/21 07:11 Dimorphic RBCs Not Reportable 05/01/21 07:11 Polychromasia Not Reportable 05/01/21 07:11 Hypochromasia Not Reportable 05/01/21 07:11 Poikilocytosis Not Reportable 05/01/21 07:11 Anisocytosis Not Reportable 05/01/21 07:11 Microcytosis Not Reportable 05/01/21 07:11 Macrocytosis Not Reportable 05/01/21 07:11 Spherocytes Not Reportable 05/01/21 07:11 Pappenheimer Bodies Not Reportable 05/01/21 07:11 Sickle Cells Not Reportable 05/01/21 07:11 Target Cells Not Reportable 05/01/21 07:11 Tear Drop Cells Not Reportable 05/01/21 07:11 Ovalocytes Not Reportable 05/01/21 07:11 Helmet Cells Not Reportable 05/01/21 07:11 Law-Whitmore Bodies Not Reportable 05/01/21 07:11 Mesa Rings Not Reportable 05/01/21 07:11 Chidester Cells Not Reportable 05/01/21 07:11 Bite Cells Not Reportable 05/01/21 07:11 Crenated Cell Not Reportable 05/01/21 07:11 Elliptocytes Not Reportable 05/01/21 07:11 Acanthocytes (Spur) Not Reportable 05/01/21 07:11 Rouleaux Not Reportable 05/01/21 07:11 Hemoglobin C Crystals Not Reportable 05/01/21 07:11 Schistocytes Not Reportable 05/01/21 07:11 Malaria parasites Not Reportable 05/01/21 07:11 James Bodies Not Reportable 05/01/21 07:11 Hem Pathologist Commnt No 05/01/21 07:11 PT 14.8 Sec. (12.2-14.9) 05/07/21 08:20 INR 1.11 (0.87-1.13) 05/07/21 08:20 APTT 31.8 Sec. (24.2-36.6) 04/15/21 17:20 ABG pH 7.417 (7.320-7.450) 05/17/21 21:04 POC ABG pCO2 41.2 mmHg (32.0-48.0) 05/17/21 21:04 POC ABG pO2 88.3 mmHg (83-108) 05/17/21 21:04 POC ABG HCO3 25.9 05/17/21 21:04 ABG O2 Saturation 97.0 (0-100) 05/17/21 21:04 POC ABG Base Excess 1.3 05/17/21 21:04 ABG Hemoglobin 9.2 (12.0-17.5) L 05/17/21 21:04 ABG Oxyhemoglobin 96.1 (94-98) 05/17/21 21:04 ABG Methemoglobin 0.3 (0.0-1.5) 05/17/21 21:04 ABG Sodium 136.3 mmol/L (136.0-145.0) 05/17/21 21:04 ABG Potassium 3.7 mmol/L (3.40-4.50) 05/17/21 21:04 ABG Chloride 104.0 mmol/L (98-107) 05/17/21 21:04 ABG Glucose 160 mg/dL (65-95) H 05/17/21 21:04 Carboxyhemoglobin 0.6 (0.5-1.5) 05/17/21 21:04 FiO2 % 28.0 05/17/21 21:04 Sodium 134 mmol/L (137-145) L 05/20/21 05:18 Potassium 4.3 mmol/L (3.6-5.0) 05/20/21 05:18 Chloride 99.9 mmol/L (98-107) 05/20/21 05:18 Carbon Dioxide 23 mmol/L (22-30) 05/20/21 05:18 Anion Gap 15 mmol/L 05/20/21 05:18 BUN 35 mg/dL (7-17) H 05/20/21 05:18 Creatinine 1.9 mg/dL (0.6-1.2) H 05/20/21 05:18 Estimated GFR 31 ml/min 05/20/21 05:18 BUN/Creatinine Ratio 18 % 05/20/21 05:18 Glucose 185 mg/dL (65-100) H 05/20/21 05:18 POC Glucose 172 mg/dL (70-105) H 05/20/21 01:11 Lactic Acid 1.10 mmol/L (0.7-2.0) 04/26/21 09:30 Calcium 9.6 mg/dL (8.4-10.2) 05/20/21 05:18 Phosphorus 2.60 mg/dL (2.5-4.5) 04/22/21 08:00 Magnesium 2.10 mg/dL (1.7-2.3) 04/23/21 07:02 Total Bilirubin 0.30 mg/dL (0.1-1.2) 04/28/21 04:13 Direct Bilirubin < 0.2 mg/dL (0-0.2) 04/28/21 04:13 Indirect Bilirubin 0.1 mg/dL 04/28/21 04:13 AST 61 units/L (5-40) H 04/28/21 04:13 ALT 64 units/L (7-56) H 04/28/21 04:13 Alkaline Phosphatase 95 units/L (35-129) 04/28/21 04:13 Ammonia 46.0 umol/L (25-60) 04/15/21 17:20 Total Creatine Kinase 63 units/L (30-135) 05/17/21 07:43 CK-MB (CK-2) 9.1 ng/mL (0.0-4.0) H 04/17/21 15:35 CK-MB (CK-2) Rel Index 1.4 (0-4) 04/17/21 15:35 Troponin T 0.065 ng/mL (0.00-0.029) H 04/20/21 03:32 NT-Pro-B Natriuret Pep 697.9 pg/mL (0-900) 04/15/21 17:20 Total Protein 6.2 g/dL (6.3-8.2) L 04/28/21 04:13 Albumin 2.6 g/dL (3.9-5) L 04/28/21 04:13 Albumin/Globulin Ratio 0.7 % 04/28/21 04:13 Triglycerides 103 mg/dL (2-149) 04/17/21 05:04 Cholesterol 122 mg/dL (50-199) 04/17/21 05:04 LDL Cholesterol Direct 55 mg/dL (50-130) 04/17/21 05:04 HDL Cholesterol 61 mg/dL (40-59) H 04/17/21 05:04 Cholesterol/HDL Ratio 2.00 % 04/17/21 05:04 Procalcitonin 0.20 ng/mL (<0.15) 04/16/21 19:01 TSH 14.190 mlU/mL (0.270-4.200) H 04/15/21 17:20 Thyroxine (T4) 4.1 ug/dL (4.0-12.0) 04/16/21 19:01 Free T3 Index 1.1 pg/mL (2.3-4.2) L 04/16/21 19:01 Arterial Blood Glucose 160 mg/dL (65-95) H 05/17/21 21:04 Arterial Blood Ionized Calcium 4.9 mg/dL (4.6-5.3) 05/17/21 21:04 Urine Color Yellow (Yellow) 04/30/21 17:45 Urine Turbidity Cloudy (Clear) 04/30/21 17:45 Urine pH 5.0 (5.0-7.0) 04/30/21 17:45 Ur Specific [place] 1.016 (1.003-1.030) 04/30/21 17:45 Urine Protein 100 mg/dl mg/dL (Negative) 04/30/21 17:45 Urine Glucose (UA) Neg mg/dL (Negative) 04/30/21 17:45 Urine Ketones Neg mg/dL (Negative) 04/30/21 17:45 Urine Blood Mod (Negative) 04/30/21 17:45 Urine Nitrite Neg (Negative) 04/30/21 17:45 Urine Bilirubin Neg (Negative) 04/30/21 17:45 Urine Urobilinogen < 2.0 mg/dL (<2.0) 04/30/21 17:45 Ur Leukocyte Esterase Mod (Negative) 04/30/21 17:45 Urine WBC (Auto) 48.0 /HPF (0.0-6.0) H 04/30/21 17:45 Urine RBC (Auto) 103.0 /HPF (0.0-6.0) 04/30/21 17:45 U Epithel Cells (Auto) < 1.0 /HPF (0-13.0) 04/16/21 00:09 Urine Bacteria (Auto) 1+ /HPF (Negative) 04/16/21 00:09 Urine Mucus Few /HPF 04/30/21 17:45 Urine Yeast (Budding) 3+ /HPF 04/30/21 17:45 Urine Creatinine 104.7 mg/dL (0.1-20.0) H 05/18/21 06:45 Urine Sodium 81 mmol/L 05/18/21 06:45 Random Vancomycin 15.5 ug/mL (0-40.0) 04/27/21 07:52 Salicylates 4.1 mg/dL (2.8-20.0) 04/15/21 17:20 Acetaminophen 5.0 ug/mL (10.0-30.0) L 04/15/21 17:20 Plasma/Serum Alcohol 0.02 % (0-0.07) 04/15/21 17:20 Coronavirus (PCR) Negative (Negative) 05/19/21 Unknown Blood Type B POSITIVE 05/14/21 19:00 Antibody Screen Negative 05/14/21 19:00 Crossmatch See Detail 05/14/21 19:00 Kerr/IV: Voiding Method Indwelling Catheter Active Medications - Current Medications Current Medications: Generic Name Dose Route Start Last Admin Trade Name Freq PRN Reason Stop Dose Admin Acetaminophen 650 mg 04/15/21 19:11 05/17/21 12:33 Acetaminophen 325 Mg Tab PO 650 mg Q6H PRN Administration Pain MILD(1-3)/Fever >100.5/SEXTON Albuterol 2.5 mg 05/09/21 13:16 05/16/21 09:40 Albuterol 2.5 Mg/3 Ml Nebu IH 2.5 mg Q6HRT PRN Administration Shortness Of Breath Amlodipine Besylate 2.5 mg 05/18/21 10:00 05/19/21 09:45 Amlodipine 5 Mg Tab PO 2.5 mg QDAY WOLFGANG Administration Lipase/Protease/Amylase 1 each 04/16/21 12:52 Lipase 10,500/Protease 25,000/Amylase 43,750 (Units) Dr Simpson FEEDTUBE PRN PRN For Clogged Feeding Tube Aspirin 81 mg 04/25/21 10:00 05/19/21 09:45 Aspirin 81 Mg Tab Chew PO 81 mg QDAY WOLFGANG Administration Bisacodyl 10 mg 04/17/21 11:01 05/03/21 09:50 Bisacodyl 10 Mg Rect Supp [place] 10 mg QDAY PRN Administration Constipation Brimonidine Tartrate 1 drops 04/17/21 22:00 05/19/21 21:30 Brimonidine 0.15% Ophth Soln OU 1 drops BID WOLFGANG Administration Docusate Sodium 100 mg 04/29/21 15:00 05/19/21 21:30 Docusate Sodium 100 Mg/10 Ml Oral Liqd PO 100 mg BID WOLFGANG Administration Famotidine 20 mg 04/17/21 10:00 05/19/21 09:44 Famotidine 20 Mg Tab PO 20 mg DAILY [facility] Administration Glycopyrrolate 1 mg 05/17/21 20:00 05/19/21 21:29 Glycopyrrolate 1 Mg Tab PO 1 mg TID [facility] Administration Heparin Sodium (Porcine) 5,000 unit 04/15/21 22:00 05/19/21 21:30 Heparin 5,000 Unit/1 Ml Vial SUB-Q 5,000 unit Q12HR [facility] Administration Hydralazine HCl 10 mg 04/16/21 18:00 05/20/21 05:56 Hydralazine 20 Mg/1 Ml Inj IV 10 mg Q4HR PRN Administration Hypertension Hydrophilic Ointment 1 applic 04/15/21 17:24 Lip Therapy Vaseline TP Q2HR PRN Dry Lips Insulin Human Isoph/Insulin Regular 25 unit 05/09/21 08:00 05/19/21 18:02 Insulin Nph/Regular 70/30 Inj SUB-Q Not Given BIDDIAB [facility] Insulin Human Lispro 0 unit 04/16/21 15:00 05/20/21 06:09 Insulin Lispro 100 Unit/Ml SUB-Q 4 unit Q6HR [facility] Administration Protocol Latanoprost 1 drops 04/17/21 18:00 05/19/21 18:02 Latanoprost 0.005% Ophth Soln 2.5 Ml OU 1 drops QPM [facility] Administration Levothyroxine Sodium 25 mcg 04/19/21 06:00 05/20/21 05:57 Levothyroxine 25 Mcg Tab PO 25 mcg DAILY@0600 [facility] Administration Lorazepam 2 mg 05/13/21 09:30 Lorazepam 2 Mg/Ml Vial IV Q4H PRN Agitation Midodrine 10 mg 05/17/21 16:00 05/20/21 07:48 Midodrine 5 Mg Tab PO Not Given TID@0800,1200,1600 [facility] Multi-Ingred Cream/Lotion/Oil/Oint 1 applic 04/15/21 17:24 05/17/21 21:31 Mineral Oil/Petrolatum, White Ophth Oint 3.5 Gm OU 1 applic Q4HR PRN Administration Dry Eye(s) Pravastatin Sodium 20 mg 04/19/21 22:00 05/19/21 21:30 Pravastatin 20 Mg Tab PO 20 mg QHS [facility] Administration Scopolamine 1 each 04/20/21 18:00 05/17/21 09:33 Scopolamine Transdermal Patch 72 Hr TD 1 each Q3D [facility] Administration Simple Syrup 15 ml 04/16/21 12:52 Simple Syrup 15 Ml FEEDTUBE PRN PRN Hypoglycemia Simple Syrup 30 ml 04/16/21 12:52 Simple Syrup 15 Ml FEEDTUBE PRN PRN Hypoglycemia Sodium Bicarbonate 325 mg 04/16/21 12:52 Sodium Bicarbonate 325 Mg Tab FEEDTUBE PRN PRN For Clogged Feeding Tube Sodium Chloride 10 ml 04/15/21 22:00 05/19/21 21:31 Sodium Chloride 0.9% 10 Ml Flush Syringe IV 10 ml BID [facility] Administration Sodium Chloride 10 ml 04/15/21 19:11 05/19/21 06:38 Sodium Chloride 0.9% 10 Ml Flush Syringe IV 10 ml PRN PRN Administration LINE FLUSH Tamsulosin HCl 0.4 mg 04/25/21 14:00 05/19/21 09:45 Tamsulosin 0.4 Mg Cap PO 0.4 mg QDAY [facility] Administration Timolol Maleate 1 drops 04/19/21 10:00 05/19/21 09:46 Timolol 0.5% Ophth Soln 5 Ml OU 1 drops QDAY [facility] Administration Nutrition/Malnutrition Assess - Dietary Evaluation Nutrition/Malnutrition Findings: Nutrition Notes Start: 04/16/21 12:31 Freq: Status: Active Protocol: Document 05/18/21 11:58 CW (Rec: 05/18/21 12:05 CW [id number]) Nutrition Notes Initial or Follow up Reassessment Current Diagnosis Acute Kidney Injury,Coronary Artery Disease,Diabetes, Hypertension Other Pertinent Diagnosis Ileus, UTI, acute metabolic encephalopathy Current Diet TF-Nepro at 35 ml/hr Labs/Tests BUN 42 Cr 2.1 BG 154 Pertinent Medications Humulin Colace NS at 75 ml/hr + 1L Height 5 ft 6 in Weight 94.6 kg Clint Body Weight (kg) 59.09 BMI 33.6 Weight Status Obese Subjective/Other Information FU for TF tolerance. TF changed to Nepro. TF running Nepro at 40 ml/hr. Error in order corrected to reflect accurate rate of 35 ml/hr. No reports of TF intolerance. Percent of energy/protein needs met: 100%/100% (Nepro at 40ml/hr) Burn Absent Trauma Absent Difficulty In Swallowing Current % PO Negligible Minimum of two criteria No physical signs of malnutrition #1 Nutrition Diagnosis Inadequate oral intake Diagnosis Progress(for reassessment Continues documentation) Is patient on ventilator? No Is Patient Ambulatory and/or Out of Bed No REE-([place]-[facility] Jeor-confined to bed) 1714.032 Kcal/Kg value to use for calculation 15 Approximate Energy Requirements Using 1419 kcal/Kg Calculation Used for Recommendations Kcal/kg Additional Notes Pro needs 1-1.2g/kg AdjBW: 76kg (76-91g) Fluid needs 1ml/kcal Nutrition Intervention Change Diet Order: Continue Nepro Nutrition Support: Nepro 1.8 at 35 ml/hr Flush 150 ml q4h Kcal 1,512 Protein (gm) 68 Fluid (mL) 611 Goal #1 Start and tolerate new TF Goal #2 Meet at lest 75% of kcal adn protein needs via TF Anticipated Discharge Needs: Continuous TF Follow-Up By: 05/22/21 Additional Comments F/U for TF tolerance
[2021-05-20] MEDS: DOCUSATE SODIUM 100 MG/10 ML ORAL LIQD PO SCH ×2 (10:35→21:18)
[2021-05-20] MEDS: ASPIRIN 81 MG TAB CHEW PO SCH (10:35)
[2021-05-20] MEDS: INSULIN NPH/REGULAR 70/30 INJ SUB-Q SCH ×2 (10:35→17:35)
[2021-05-20] MEDS: TAMSULOSIN 0.4 MG CAP PO SCH (10:35)
[2021-05-20] MEDS: FAMOTIDINE 20 MG TAB PO SCH (10:35)
[2021-05-20] MEDS: amLODIPine 5 MG TAB PO SCH (10:35)
[2021-05-20] MEDS: GLYCOPYRROLATE 1 MG TAB PO SCH ×4 (10:35→21:17)
[2021-05-20] MEDS: TIMOLOL 0.5% OPHTH SOLN 5 ML OU SCH (10:36)
[2021-05-20] MEDS: HEPARIN 5,000 UNIT/1 ML VIAL SUB-Q SCH ×2 (10:36→21:18)
[2021-05-20] MEDS: SCOPOLAMINE TRANSDERMAL PATCH 72 HR TD SCH (10:36)
[2021-05-20] MEDS: BRIMONIDINE 0.15% OPHTH SOLN OU SCH ×2 (10:37→21:17)
--- NOTE | 2021-05-20 10:55 | Progress Note ---
Assessment and Plan Acute respiratory failure, s/p mechanical ventilatory support. s/p Tracheostomy Oropharyngeal dysphagia s/p PEG Acute toxic metabolic encephalopathy ROJELIO Possible seizure activity DM II HTN CAD Obesity H/O breast cancer H/O TIA Leukocytosis Elevated serum TSH, possible hypothyroidism Discontinue Kerr catheter if it is no longer clinically indicated - continue to titrate supplemental oxygen to keep SpO2 89-92% - continue trach care, airway clearance, secretion management -continue with aspiration precautions, HOB >40 -continue with Midodrine for blood pressure support - continue bronchodilators with pulmonary hygiene per RT - continue to avoid nephrotoxins, dose all medications based on GFR/CrCL - continue to avoid benzodiazepines, reduce the possibility of delirium -continue to follow clinically off ABs; trend fevers / WBC -ABG and CXR as clinically indicated -continue with the maintenance of sleep-wake cycle, avoid delirium - continue enteric nutritional support at goal rate as tolerated, bowel regimen - continue accuchecks with glycemic control per SSI (While critically ill target blood glucose of 140-180 mg/dL; avoid hypoglycemia) - G.I. & VTE prophylaxis - PT/OT/ROM exercises- increase activity as tolerated - continue with mobility per facility protocol for pressure ulcer prevention - continue to monitor hemodynamics - continue other care per attending / other consultants Discharge planning. Discussed with Dr. Ferrell CONDITION:FAIR PROGNOSIS: FAIR CODE STATUS: FULL CODE Subjective Date of service: 05/20/21 Principal diagnosis: Ac. resp failure; AMS; Hypoglycemia; ROJELIO; Hyperkalemia; DM II Interval history: Patient is seen today for: Acute respiratory failure s/p tracheostomy; AMS; Hypoglycemia; ROJELIO; Hyperkalemia; DM II; H/O breast cancer; Elevated serum TSH, possible hypothyroidism Seen and examined at bedside; 24hour events reviewed; nursing and respiratory care staff consulted; no adverse overnight events reported to me; resting peacefully in bed; s/p trach to ATP, strong cough No reported fevers, No diarrhea , no vomiting, tolerating tube feeding Objective Vital Signs - 12hr 05/19/21 05/20/21 05/20/21 23:18 04:05 04:41 Temperature 98.0 F 97.5 F L Pulse Rate 73 89 Respiratory 19 19 Rate Blood Pressure 159/65 184/67 O2 Sat by Pulse 100 94 Oximetry O2 Sat by Pulse 100 Oximetry [ Assessment] 05/20/21 05/20/2121 04:53 05:56 07:46 Temperature Pulse Rate Respiratory Rate Blood Pressure 184/67 O2 Sat by Pulse 100 98 Oximetry O2 Sat by Pulse Oximetry [ Assessment] Constitutional: no acute distress, alert, other (elderly obese female with mildly increased respiratory effort at rest on t-piece, thick secretions with a stron cough) Eyes: non-icteric ENT: oropharynx moist, oropharyngeal exudate pre, other (+ midline tracheostomy without bleeding stoma) Neck: supple, no lymphadenopathy, no JVD, other (large circumference) Effort: normal Ascultation: Bilateral: clear, diminished breath sounds, rales, rhonchi (scant), other (mild stridorous sounds) Percussion: Bilateral: not dull Cardiovascular: regular rate and rhythm, other (S1,S2) Gastrointestinal: normoactive bowel sounds, hypoactive bowel sounds, non-tender, non-distended (protuberant), other (PEG in place) Integumentary: normal Extremities: no cyanosis, no edema, pulses normal, no ischemia or petechiae Neurologic: non-focal exam (tracks voice), pupils equal and round, other (generalized weakness) Psychiatric: other (falt affect) CBC and BMP: 05/20/21 05:18 05/21/21 05:19 ABG, PT/INR, D-dimer: ABG ABG pH 7.417 (7.320-7.450) 05/17/21 21:04 POC ABG pCO2 41.2 mmHg (32.0-48.0) 05/17/21 21:04 POC ABG pO2 88.3 mmHg (83-108) 05/17/21 21:04 POC ABG HCO3 25.9 05/17/21 21:04 ABG O2 Saturation 97.0 (0-100) 05/17/21 21:04 PT/INR, D-dimer PT 14.8 Sec. (12.2-14.9) 05/07/21 08:20 INR 1.11 (0.87-1.13) 05/07/21 08:20 Abnormal lab findings: Abnormal Labs 04/15/21 04/15/21 04/15/21 17:00 17:20 17:20 WBC 11.2 H RBC Hgb Hct 43.0 H MCV MCH RDW 15.3 H Plt Count Lymph % (Auto) 12.8 L Bl[place] % (Auto) [place] # (Auto) Seg Neutrophils % 82.4 H Seg Neuts % (Manual) Lymphocytes % (Manual) Monocytes % (Manual) Seg Neutrophils # 9.3 H Seg Neutrophils # Man Lymphocytes # (Manual) Monocytes # (Manual) ABG pH POC ABG pCO2 POC ABG pO2 ABG Hemoglobin ABG Oxyhemoglobin ABG Sodium ABG Potassium ABG Chloride ABG Glucose Carboxyhemoglobin Sodium 129 L Potassium 7.1 H* Chloride 91.9 L BUN 35 H Creatinine 2.8 H Glucose POC Glucose 191 H Calcium Phosphorus Magnesium AST 69 H ALT Total Creatine Kinase CK-MB (CK-2) Troponin T Total Protein Albumin HDL Cholesterol TSH Free T3 Index Arterial Blood Glucose Arterial Blood Ionized Calcium Urine pH Urine WBC (Auto) Urine Creatinine Acetaminophen Crossmatch 04/15/21 04/15/21 04/15/21 17:20 17:20 17:20 WBC RBC Hgb Hct MCV MCH RDW Plt Count Lymph % (Auto) [place] % (Auto) [place] # (Auto) Seg Neutrophils % Seg Neuts % (Manual) Lymphocytes % (Manual) Monocytes % (Manual) Seg Neutrophils # Seg Neutrophils # Man Lymphocytes # (Manual) Monocytes # (Manual) ABG pH POC ABG pCO2 POC ABG pO2 ABG Hemoglobin ABG Oxyhemoglobin ABG Sodium ABG Potassium ABG Chloride ABG Glucose Carboxyhemoglobin Sodium Potassium Chloride BUN Creatinine Glucose POC Glucose Calcium Phosphorus Magnesium AST ALT Total Creatine Kinase 1000 H CK-MB (CK-2) Troponin T Total Protein Albumin HDL Cholesterol TSH 14.190 H Free T3 Index Arterial Blood Glucose Arterial Blood Ionized Calcium Urine pH Urine WBC (Auto) Urine Creatinine Acetaminophen 5.0 L Crossmatch 04/15/21 04/15/21 04/15/21 20:49 21:23 23:15 WBC RBC Hgb Hct MCV MCH RDW Plt Count Lymph % (Auto) [place] % (Auto) [place] # (Auto) Seg Neutrophils % Seg Neuts % (Manual) Lymphocytes % (Manual) Monocytes % (Manual) Seg Neutrophils # Seg Neutrophils # Man Lymphocytes # (Manual) Monocytes # (Manual) ABG pH 7.557 H POC ABG pCO2 30.0 L POC ABG pO2 493.3 H ABG Hemoglobin ABG Oxyhemoglobin 99.0 H ABG Sodium 131.5 L ABG Potassium 4.7 H ABG Chloride 94.0 L ABG Glucose 218 H Carboxyhemoglobin Sodium Potassium Chloride BUN Creatinine Glucose POC Glucose 173 H 207 H Calcium Phosphorus Magnesium AST ALT Total Creatine Kinase CK-MB (CK-2) Troponin T Total Protein Albumin HDL Cholesterol TSH Free T3 Index Arterial Blood Glucose 218 H Arterial Blood Ionized Calcium 5.4 H Urine pH Urine WBC (Auto) Urine Creatinine Acetaminophen Crossmatch 04/16/21 04/16/21 04/16/21 00:09 00:12 00:19 WBC RBC Hgb Hct MCV MCH RDW Plt Count Lymph % (Auto) [place] % (Auto) [place] # (Auto) Seg Neutrophils % Seg Neuts % (Manual) Lymphocytes % (Manual) Monocytes % (Manual) Seg Neutrophils # Seg Neutrophils # Man Lymphocytes # (Manual) Monocytes # (Manual) ABG pH POC ABG pCO2 POC ABG pO2 ABG Hemoglobin ABG Oxyhemoglobin ABG Sodium ABG Potassium ABG Chloride ABG Glucose Carboxyhemoglobin Sodium Potassium 6.7 H* Chloride BUN Creatinine Glucose POC Glucose Calcium Phosphorus Magnesium AST ALT Total Creatine Kinase CK-MB (CK-2) Troponin T Total Protein Albumin HDL Cholesterol TSH Free T3 Index Arterial Blood Glucose Arterial Blood Ionized Calcium Urine pH 9.0 H Urine WBC (Auto) Urine Creatinine 24.4 H Acetaminophen Crossmatch 04/16/21 04/16/21 04/16/21 03:43 03:55 05:02 WBC 21.2 H RBC Hgb Hct 43.4 H MCV 98 H MCH RDW Plt Count Lymph % (Auto) [place] % (Auto) [place] # (Auto) Seg Neutrophils % Seg Neuts % (Manual) 84.0 H Lymphocytes % (Manual) 2.0 L Monocytes % (Manual) 10.0 H Seg Neutrophils # Seg Neutrophils # Man 17.8 H Lymphocytes # (Manual) 0.4 L Monocytes # (Manual) 2.1 H ABG pH 7.461 H POC ABG pCO2 POC ABG pO2 ABG Hemoglobin ABG Oxyhemoglobin ABG Sodium 126.8 L ABG Potassium 5.4 H ABG Chloride 90.0 L ABG Glucose 325 H Carboxyhemoglobin Sodium Potassium Chloride BUN Creatinine Glucose POC Glucose 391 H Calcium Phosphorus Magnesium AST ALT Total Creatine Kinase CK-MB (CK-2) Troponin T Total Protein Albumin HDL Cholesterol TSH Free T3 Index Arterial Blood Glucose 325 H Arterial Blood Ionized Calcium Urine pH Urine WBC (Auto) Urine Creatinine Acetaminophen Crossmatch 04/16/21 04/16/21 04/16/21 05:02 11:34 16:09 WBC RBC Hgb Hct MCV MCH RDW Plt Count Lymph % (Auto) [place] % (Auto) [place] # (Auto) Seg Neutrophils % Seg Neuts % (Manual) Lymphocytes % (Manual) Monocytes % (Manual) Seg Neutrophils # Seg Neutrophils # Man Lymphocytes # (Manual) Monocytes # (Manual) ABG pH POC ABG pCO2 POC ABG pO2 ABG Hemoglobin ABG Oxyhemoglobin ABG Sodium ABG Potassium ABG Chloride ABG Glucose Carboxyhemoglobin Sodium 131 L Potassium 5.9 H Chloride 88.7 L BUN 34 H Creatinine 2.9 H Glucose 249 H POC Glucose 382 H 300 H Calcium 10.4 H Phosphorus Magnesium AST 65 H ALT Total Creatine Kinase CK-MB (CK-2) Troponin T Total Protein Albumin 3.8 L HDL Cholesterol TSH Free T3 Index Arterial Blood Glucose Arterial Blood Ionized Calcium Urine pH Urine WBC (Auto) Urine Creatinine Acetaminophen Crossmatch 04/16/21 04/16/21 04/16/21 18:15 19:01 19:01 WBC RBC Hgb Hct MCV MCH RDW Plt Count Lymph % (Auto) [place] % (Auto) [place] # (Auto) Seg Neutrophils % Seg Neuts % (Manual) Lymphocytes % (Manual) Monocytes % (Manual) Seg Neutrophils # Seg Neutrophils # Man Lymphocytes # (Manual) Monocytes # (Manual) ABG pH POC ABG pCO2 POC ABG pO2 ABG Hemoglobin ABG Oxyhemoglobin ABG Sodium ABG Potassium ABG Chloride ABG Glucose Carboxyhemoglobin Sodium 125 L Potassium 5.5 H Chloride 84.5 L BUN 37 H Creatinine 3.5 H Glucose 236 H POC Glucose 287 H Calcium Phosphorus Magnesium AST ALT Total Creatine Kinase CK-MB (CK-2) Troponin T Total Protein Albumin HDL Cholesterol TSH Free T3 Index 1.1 L Arterial Blood Glucose Arterial Blood Ionized Calcium Urine pH Urine WBC (Auto) Urine Creatinine Acetaminophen Crossmatch 04/16/21 04/16/21 04/17/21 19:01 23:48 03:09 WBC RBC Hgb Hct MCV MCH RDW Plt Count Lymph % (Auto) [place] % (Auto) [place] # (Auto) Seg Neutrophils % Seg Neuts % (Manual) Lymphocytes % (Manual) Monocytes % (Manual) Seg Neutrophils # Seg Neutrophils # Man Lymphocytes # (Manual) Monocytes # (Manual) ABG pH 7.518 H POC ABG pCO2 POC ABG pO2 ABG Hemoglobin ABG Oxyhemoglobin ABG Sodium 126.4 L ABG Potassium ABG Chloride 89.0 L ABG Glucose 200 H Carboxyhemoglobin Sodium Potassium 5.6 H Chloride BUN Creatinine Glucose POC Glucose 243 H Calcium Phosphorus Magnesium AST ALT Total Creatine Kinase CK-MB (CK-2) Troponin T Total Protein Albumin HDL Cholesterol TSH Free T3 Index Arterial Blood Glucose 200 H Arterial Blood Ionized Calcium 4.4 L Urine pH Urine WBC (Auto) Urine Creatinine Acetaminophen Crossmatch 04/17/21 04/17/21 04/17/21 05:04 06:14 11:55 WBC RBC Hgb Hct MCV MCH RDW Plt Count Lymph % (Auto) [place] % (Auto) [place] # (Auto) Seg Neutrophils % Seg Neuts % (Manual) Lymphocytes % (Manual) Monocytes % (Manual) Seg Neutrophils # Seg Neutrophils # Man Lymphocytes # (Manual) Monocytes # (Manual) ABG pH POC ABG pCO2 POC ABG pO2 ABG Hemoglobin ABG Oxyhemoglobin ABG Sodium ABG Potassium ABG Chloride ABG Glucose Carboxyhemoglobin Sodium 129 L Potassium Chloride 86.1 L BUN 39 H Creatinine 3.5 H Glucose 202 H POC Glucose 208 H 276 H Calcium Phosphorus Magnesium AST ALT Total Creatine Kinase 750 H CK-MB (CK-2) Troponin T 0.119 H* D Total Protein Albumin HDL Cholesterol 61 H TSH Free T3 Index Arterial Blood Glucose Arterial Blood Ionized Calcium Urine pH Urine WBC (Auto) Urine Creatinine Acetaminophen Crossmatch 04/17/21 04/17/21 04/17/21 15:35 15:35 17:07 WBC 17.1 H RBC Hgb Hct MCV MCH RDW Plt Count Lymph % (Auto) [place] % (Auto) [place] # (Auto) Seg Neutrophils % Seg Neuts % (Manual) Lymphocytes % (Manual) Monocytes % (Manual) Seg Neutrophils # Seg Neutrophils # Man Lymphocytes # (Manual) Monocytes # (Manual) ABG pH POC ABG pCO2 POC ABG pO2 ABG Hemoglobin ABG Oxyhemoglobin ABG Sodium ABG Potassium ABG Chloride ABG Glucose Carboxyhemoglobin Sodium Potassium Chloride BUN Creatinine Glucose POC Glucose 148 H Calcium Phosphorus Magnesium AST ALT Total Creatine Kinase 615 H CK-MB (CK-2) 9.1 H Troponin T Total Protein Albumin HDL Cholesterol TSH Free T3 Index Arterial Blood Glucose Arterial Blood Ionized Calcium Urine pH Urine WBC (Auto) Urine Creatinine Acetaminophen Crossmatch 04/18/21 04/18/21 04/18/21 00:01 03:00 05:24 WBC RBC Hgb Hct MCV MCH RDW Plt Count Lymph % (Auto) [place] % (Auto) [place] # (Auto) Seg Neutrophils % Seg Neuts % (Manual) Lymphocytes % (Manual) Monocytes % (Manual) Seg Neutrophils # Seg Neutrophils # Man Lymphocytes # (Manual) Monocytes # (Manual) ABG pH 7.497 H POC ABG pCO2 POC ABG pO2 77.7 L ABG Hemoglobin 10.4 L ABG Oxyhemoglobin ABG Sodium 129.7 L ABG Potassium 2.8 L ABG Chloride 92.0 L ABG Glucose 134 H Carboxyhemoglobin 0.3 L Sodium Potassium Chloride BUN Creatinine Glucose POC Glucose 192 H 162 H Calcium Phosphorus Magnesium AST ALT Total Creatine Kinase CK-MB (CK-2) Troponin T Total Protein Albumin HDL Cholesterol TSH Free T3 Index Arterial Blood Glucose 134 H Arterial Blood Ionized Calcium 4.3 L Urine pH Urine WBC (Auto) Urine Creatinine Acetaminophen Crossmatch 04/18/21 04/18/21 04/18/21 05:34 05:34 05:43 WBC 15.3 H RBC 3.34 L Hgb Hct MCV MCH RDW 15.3 H Plt Count Lymph % (Auto) [place] % (Auto) [place] # (Auto) Seg Neutrophils % Seg Neuts % (Manual) Lymphocytes % (Manual) Monocytes % (Manual) Seg Neutrophils # Seg Neutrophils # Man Lymphocytes # (Manual) Monocytes # (Manual) ABG pH POC ABG pCO2 POC ABG pO2 ABG Hemoglobin ABG Oxyhemoglobin ABG Sodium ABG Potassium ABG Chloride ABG Glucose Carboxyhemoglobin Sodium 134 L Potassium 3.0 L D Chloride 93.5 L BUN 42 H Creatinine 3.1 H Glucose 152 H POC Glucose Calcium Phosphorus Magnesium 1.40 L AST ALT Total Creatine Kinase 427 H CK-MB (CK-2) Troponin T 0.081 H D Total Protein Albumin HDL Cholesterol TSH Free T3 Index Arterial Blood Glucose Arterial Blood Ionized Calcium Urine pH Urine WBC (Auto) Urine Creatinine Acetaminophen Crossmatch 04/18/21 04/18/21 04/18/21 09:11 11:34 17:24 WBC RBC Hgb Hct MCV MCH RDW Plt Count Lymph % (Auto) [place] % (Auto) [place] # (Auto) Seg Neutrophils % Seg Neuts % (Manual) Lymphocytes % (Manual) Monocytes % (Manual) Seg Neutrophils # Seg Neutrophils # Man Lymphocytes # (Manual) Monocytes # (Manual) ABG pH POC ABG pCO2 POC ABG pO2 ABG Hemoglobin ABG Oxyhemoglobin ABG Sodium ABG Potassium ABG Chloride ABG Glucose Carboxyhemoglobin Sodium Potassium Chloride BUN Creatinine Glucose POC Glucose 170 H 151 H Calcium Phosphorus Magnesium AST ALT Total Creatine Kinase CK-MB (CK-2) Troponin T Total Protein Albumin HDL Cholesterol TSH Free T3 Index Arterial Blood Glucose Arterial Blood Ionized Calcium Urine pH Urine WBC (Auto) 34.0 H Urine Creatinine Acetaminophen Crossmatch 04/18/21 04/19/21 04/19/21 23:18 04:09 05:19 WBC RBC Hgb Hct MCV MCH RDW Plt Count Lymph % (Auto) [place] % (Auto) [place] # (Auto) Seg Neutrophils % Seg Neuts % (Manual) Lymphocytes % (Manual) Monocytes % (Manual) Seg Neutrophils # Seg Neutrophils # Man Lymphocytes # (Manual) Monocytes # (Manual) ABG pH 7.476 H POC ABG pCO2 POC ABG pO2 79.4 L ABG Hemoglobin 10.7 L ABG Oxyhemoglobin ABG Sodium 131.2 L ABG Potassium 2.8 L ABG Chloride 94.0 L ABG Glucose 209 H Carboxyhemoglobin 0.3 L Sodium Potassium Chloride BUN Creatinine Glucose POC Glucose 182 H 204 H Calcium Phosphorus Magnesium AST ALT Total Creatine Kinase CK-MB (CK-2) Troponin T Total Protein Albumin HDL Cholesterol TSH Free T3 Index Arterial Blood Glucose 209 H Arterial Blood Ionized Calcium Urine pH Urine WBC (Auto) Urine Creatinine Acetaminophen Crossmatch 04/19/21 04/19/21 04/19/21 07:30 07:30 10:35 WBC 14.8 H RBC 3.20 L Hgb Hct MCV 98 H MCH RDW Plt Count 137 L Lymph % (Auto) [place] % (Auto) [place] # (Auto) Seg Neutrophils % Seg Neuts % (Manual) Lymphocytes % (Manual) Monocytes % (Manual) Seg Neutrophils # Seg Neutrophils # Man Lymphocytes # (Manual) Monocytes # (Manual) ABG pH 7.464 H POC ABG pCO2 POC ABG pO2 81.8 L ABG Hemoglobin 10.8 L ABG Oxyhemoglobin ABG Sodium 129.6 L ABG Potassium ABG Chloride 95.0 L ABG Glucose 238 H Carboxyhemoglobin Sodium 133 L Potassium 2.8 L* Chloride 94.4 L BUN 43 H Creatinine 2.7 H Glucose 255 H POC Glucose Calcium 8.0 L Phosphorus Magnesium AST ALT Total Creatine Kinase CK-MB (CK-2) Troponin T 0.060 H D Total Protein Albumin HDL Cholesterol TSH Free T3 Index Arterial Blood Glucose 238 H Arterial Blood Ionized Calcium Urine pH Urine WBC (Auto) Urine Creatinine Acetaminophen Crossmatch 04/19/21 04/19/21 04/19/21 11:48 20:40 23:04 WBC RBC Hgb Hct MCV MCH RDW Plt Count Lymph % (Auto) [place] % (Auto) [place] # (Auto) Seg Neutrophils % Seg Neuts % (Manual) Lymphocytes % (Manual) Monocytes % (Manual) Seg Neutrophils # Seg Neutrophils # Man Lymphocytes # (Manual) Monocytes # (Manual) ABG pH POC ABG pCO2 POC ABG pO2 ABG Hemoglobin ABG Oxyhemoglobin ABG Sodium ABG Potassium ABG Chloride ABG Glucose Carboxyhemoglobin Sodium Potassium 3.4 L D Chloride BUN Creatinine Glucose POC Glucose 208 H 173 H Calcium Phosphorus Magnesium AST ALT Total Creatine Kinase CK-MB (CK-2) Troponin T Total Protein Albumin HDL Cholesterol TSH Free T3 Index Arterial Blood Glucose Arterial Blood Ionized Calcium Urine pH Urine WBC (Auto) Urine Creatinine Acetaminophen Crossmatch 04/20/21 04/20/21 04/20/21 02:56 03:32 03:32 WBC 13.2 H RBC 3.18 L Hgb Hct MCV MCH RDW Plt Count Lymph % (Auto) [place] % (Auto) [place] # (Auto) Seg Neutrophils % Seg Neuts % (Manual) Lymphocytes % (Manual) Monocytes % (Manual) Seg Neutrophils # Seg Neutrophils # Man Lymphocytes # (Manual) Monocytes # (Manual) ABG pH 7.526 H POC ABG pCO2 POC ABG pO2 ABG Hemoglobin 10.5 L ABG Oxyhemoglobin ABG Sodium 133.5 L ABG Potassium ABG Chloride ABG Glucose 157 H Carboxyhemoglobin 0.3 L Sodium 135 L Potassium Chloride 96.7 L BUN 40 H Creatinine 2.3 H Glucose 142 H POC Glucose Calcium Phosphorus Magnesium AST ALT Total Creatine Kinase CK-MB (CK-2) Troponin T 0.065 H Total Protein Albumin HDL Cholesterol TSH Free T3 Index Arterial Blood Glucose 157 H Arterial Blood Ionized Calcium Urine pH Urine WBC (Auto) Urine Creatinine Acetaminophen Crossmatch 04/20/21 04/20/21 04/20/21 03:46 05:42 11:50 WBC RBC Hgb Hct MCV MCH RDW Plt Count Lymph % (Auto) [place] % (Auto) [place] # (Auto) Seg Neutrophils % Seg Neuts % (Manual) Lymphocytes % (Manual) Monocytes % (Manual) Seg Neutrophils # Seg Neutrophils # Man Lymphocytes # (Manual) Monocytes # (Manual) ABG pH POC ABG pCO2 POC ABG pO2 ABG Hemoglobin ABG Oxyhemoglobin ABG Sodium ABG Potassium ABG Chloride ABG Glucose Carboxyhemoglobin Sodium Potassium Chloride BUN Creatinine Glucose POC Glucose 160 H 194 H Calcium Phosphorus 2.10 L Magnesium AST ALT Total Creatine Kinase CK-MB (CK-2) Troponin T Total Protein Albumin HDL Cholesterol TSH Free T3 Index Arterial Blood Glucose Arterial Blood Ionized Calcium Urine pH Urine WBC (Auto) Urine Creatinine Acetaminophen Crossmatch 04/20/21 04/20/21 04/21/21 17:09 23:18 05:26 WBC RBC Hgb Hct MCV MCH RDW Plt Count Lymph % (Auto) [place] % (Auto) [place] # (Auto) Seg Neutrophils % Seg Neuts % (Manual) Lymphocytes % (Manual) Monocytes % (Manual) Seg Neutrophils # Seg Neutrophils # Man Lymphocytes # (Manual) Monocytes # (Manual) ABG pH POC ABG pCO2 POC ABG pO2 ABG Hemoglobin ABG Oxyhemoglobin ABG Sodium ABG Potassium ABG Chloride ABG Glucose Carboxyhemoglobin Sodium Potassium Chloride BUN Creatinine Glucose POC Glucose 153 H 162 H 164 H Calcium Phosphorus Magnesium AST ALT Total Creatine Kinase CK-MB (CK-2) Troponin T Total Protein Albumin HDL Cholesterol TSH Free T3 Index Arterial Blood Glucose Arterial Blood Ionized Calcium Urine pH Urine WBC (Auto) Urine Creatinine Acetaminophen Crossmatch 04/21/21 04/21/21 04/21/21 05:51 05:51 12:12 WBC RBC 3.20 L Hgb Hct MCV 99 H MCH RDW 15.3 H Plt Count Lymph % (Auto) [place] % (Auto) [place] # (Auto) Seg Neutrophils % Seg Neuts % (Manual) Lymphocytes % (Manual) Monocytes % (Manual) Seg Neutrophils # Seg Neutrophils # Man Lymphocytes # (Manual) Monocytes # (Manual) ABG pH POC ABG pCO2 POC ABG pO2 ABG Hemoglobin ABG Oxyhemoglobin ABG Sodium ABG Potassium ABG Chloride ABG Glucose Carboxyhemoglobin Sodium Potassium Chloride 96.6 L BUN 42 H Creatinine 2.1 H Glucose 171 H POC Glucose 167 H Calcium Phosphorus Magnesium AST ALT Total Creatine Kinase CK-MB (CK-2) Troponin T Total Protein Albumin HDL Cholesterol TSH Free T3 Index Arterial Blood Glucose Arterial Blood Ionized Calcium Urine pH Urine WBC (Auto) Urine Creatinine Acetaminophen Crossmatch 04/21/21 04/21/21 04/22/21 17:13 23:42 05:29 WBC RBC Hgb Hct MCV MCH RDW Plt Count Lymph % (Auto) [place] % (Auto) [place] # (Auto) Seg Neutrophils % Seg Neuts % (Manual) Lymphocytes % (Manual) Monocytes % (Manual) Seg Neutrophils # Seg Neutrophils # Man Lymphocytes # (Manual) Monocytes # (Manual) ABG pH POC ABG pCO2 POC ABG pO2 ABG Hemoglobin ABG Oxyhemoglobin ABG Sodium ABG Potassium ABG Chloride ABG Glucose Carboxyhemoglobin Sodium Potassium Chloride BUN Creatinine Glucose POC Glucose 178 H 253 H 208 H Calcium Phosphorus Magnesium AST ALT Total Creatine Kinase CK-MB (CK-2) Troponin T Total Protein Albumin HDL Cholesterol TSH Free T3 Index Arterial Blood Glucose Arterial Blood Ionized Calcium Urine pH Urine WBC (Auto) Urine Creatinine Acetaminophen Crossmatch 04/22/21 04/22/21 04/22/21 08:00 08:00 12:06 WBC 12.9 H RBC Hgb Hct MCV MCH RDW Plt Count Lymph % (Auto) [place] % (Auto) [place] # (Auto) Seg Neutrophils % Seg Neuts % (Manual) Lymphocytes % (Manual) Monocytes % (Manual) Seg Neutrophils # Seg Neutrophils # Man Lymphocytes # (Manual) Monocytes # (Manual) ABG pH POC ABG pCO2 POC ABG pO2 ABG Hemoglobin ABG Oxyhemoglobin ABG Sodium ABG Potassium ABG Chloride ABG Glucose Carboxyhemoglobin Sodium Potassium Chloride BUN 47 H Creatinine 1.9 H Glucose 252 H POC Glucose 298 H Calcium Phosphorus Magnesium AST ALT Total Creatine Kinase CK-MB (CK-2) Troponin T Total Protein Albumin HDL Cholesterol TSH Free T3 Index Arterial Blood Glucose Arterial Blood Ionized Calcium Urine pH Urine WBC (Auto) Urine Creatinine Acetaminophen Crossmatch 04/22/21 04/22/21 04/23/21 17:34 23:01 05:08 WBC RBC Hgb Hct MCV MCH RDW Plt Count Lymph % (Auto) [place] % (Auto) [place] # (Auto) Seg Neutrophils % Seg Neuts % (Manual) Lymphocytes % (Manual) Monocytes % (Manual) Seg Neutrophils # Seg Neutrophils # Man Lymphocytes # (Manual) Monocytes # (Manual) ABG pH POC ABG pCO2 POC ABG pO2 ABG Hemoglobin ABG Oxyhemoglobin ABG Sodium ABG Potassium ABG Chloride ABG Glucose Carboxyhemoglobin Sodium Potassium Chloride BUN Creatinine Glucose POC Glucose 259 H 280 H 223 H Calcium Phosphorus Magnesium AST ALT Total Creatine Kinase CK-MB (CK-2) Troponin T Total Protein Albumin HDL Cholesterol TSH Free T3 Index Arterial Blood Glucose Arterial Blood Ionized Calcium Urine pH Urine WBC (Auto) Urine Creatinine Acetaminophen Crossmatch 04/23/21 04/23/21 04/23/21 07:02 11:57 17:33 WBC RBC Hgb Hct MCV MCH RDW Plt Count Lymph % (Auto) [place] % (Auto) [place] # (Auto) Seg Neutrophils % Seg Neuts % (Manual) Lymphocytes % (Manual) Monocytes % (Manual) Seg Neutrophils # Seg Neutrophils # Man Lymphocytes # (Manual) Monocytes # (Manual) ABG pH POC ABG pCO2 POC ABG pO2 ABG Hemoglobin ABG Oxyhemoglobin ABG Sodium ABG Potassium ABG Chloride ABG Glucose Carboxyhemoglobin Sodium Potassium Chloride 97.7 L BUN 57 H Creatinine 2.0 H Glucose 253 H POC Glucose 310 H 235 H Calcium Phosphorus Magnesium AST ALT Total Creatine Kinase CK-MB (CK-2) Troponin T Total Protein Albumin HDL Cholesterol TSH Free T3 Index Arterial Blood Glucose Arterial Blood Ionized Calcium Urine pH Urine WBC (Auto) Urine Creatinine Acetaminophen Crossmatch 04/23/21 04/24/21 04/24/21 23:15 05:23 05:46 WBC RBC Hgb Hct MCV MCH RDW Plt Count Lymph % (Auto) [place] % (Auto) [place] # (Auto) Seg Neutrophils % Seg Neuts % (Manual) Lymphocytes % (Manual) Monocytes % (Manual) Seg Neutrophils # Seg Neutrophils # Man Lymphocytes # (Manual) Monocytes # (Manual) ABG pH POC ABG pCO2 POC ABG pO2 ABG Hemoglobin ABG Oxyhemoglobin ABG Sodium ABG Potassium ABG Chloride ABG Glucose Carboxyhemoglobin Sodium Potassium 5.2 H D Chloride BUN 68 H Creatinine 2.3 H Glucose 277 H POC Glucose 197 H 274 H Calcium Phosphorus Magnesium AST ALT Total Creatine Kinase CK-MB (CK-2) Troponin T Total Protein Albumin HDL Cholesterol TSH Free T3 Index Arterial Blood Glucose Arterial Blood Ionized Calcium Urine pH Urine WBC (Auto) Urine Creatinine Acetaminophen Crossmatch 05/04/24/21 04/24/21 11:33 11:52 17:49 WBC RBC Hgb Hct MCV MCH RDW Plt Count Lymph % (Auto) [place] % (Auto) [place] # (Auto) Seg Neutrophils % Seg Neuts % (Manual) Lymphocytes % (Manual) Monocytes % (Manual) Seg Neutrophils # Seg Neutrophils # Man Lymphocytes # (Manual) Monocytes # (Manual) ABG pH POC ABG pCO2 POC ABG pO2 72.7 L ABG Hemoglobin 11.6 L ABG Oxyhemoglobin 92.9 L ABG Sodium ABG Potassium ABG Chloride ABG Glucose 269 H Carboxyhemoglobin Sodium Potassium Chloride BUN Creatinine Glucose POC Glucose 223 H 252 H Calcium Phosphorus Magnesium AST ALT Total Creatine Kinase CK-MB (CK-2) Troponin T Total Protein Albumin HDL Cholesterol TSH Free T3 Index Arterial Blood Glucose 269 H Arterial Blood Ionized Calcium Urine pH Urine WBC (Auto) Urine Creatinine Acetaminophen Crossmatch 04/24/21 04/24/21 04/25/21 21:00 23:48 03:06 WBC RBC Hgb Hct MCV MCH RDW Plt Count Lymph % (Auto) [place] % (Auto) [place] # (Auto) Seg Neutrophils % Seg Neuts % (Manual) Lymphocytes % (Manual) Monocytes % (Manual) Seg Neutrophils # Seg Neutrophils # Man Lymphocytes # (Manual) Monocytes # (Manual) ABG pH 7.521 H 7.451 H POC ABG pCO2 POC ABG pO2 80.7 L 77.1 L ABG Hemoglobin 10.4 L 11.2 L ABG Oxyhemoglobin ABG Sodium ABG Potassium ABG Chloride ABG Glucose 186 H 165 H Carboxyhemoglobin 0 L Sodium Potassium Chloride BUN Creatinine Glucose POC Glucose 141 H Calcium Phosphorus Magnesium AST ALT Total Creatine Kinase CK-MB (CK-2) Troponin T Total Protein Albumin HDL Cholesterol TSH Free T3 Index Arterial Blood Glucose 186 H 165 H Arterial Blood Ionized Calcium Urine pH Urine WBC (Auto) Urine Creatinine Acetaminophen Crossmatch 04/25/21 04/25/21 04/25/21 03:56 03:56 06:03 WBC 12.3 H RBC 3.40 L Hgb Hct MCV MCH RDW Plt Count Lymph % (Auto) [place] % (Auto) [place] # (Auto) Seg Neutrophils % Seg Neuts % (Manual) Lymphocytes % (Manual) Monocytes % (Manual) Seg Neutrophils # Seg Neutrophils # Man Lymphocytes # (Manual) Monocytes # (Manual) ABG pH POC ABG pCO2 POC ABG pO2 ABG Hemoglobin ABG Oxyhemoglobin ABG Sodium ABG Potassium ABG Chloride ABG Glucose Carboxyhemoglobin Sodium Potassium Chloride BUN 78 H Creatinine 2.5 H Glucose 152 H POC Glucose 171 H Calcium Phosphorus Magnesium AST ALT Total Creatine Kinase CK-MB (CK-2) Troponin T Total Protein Albumin HDL Cholesterol TSH Free T3 Index Arterial Blood Glucose Arterial Blood Ionized Calcium Urine pH Urine WBC (Auto) Urine Creatinine Acetaminophen Crossmatch 04/25/21 04/25/21 04/26/21 11:43 15:37 00:05 WBC RBC Hgb Hct MCV MCH RDW Plt Count Lymph % (Auto) [place] % (Auto) [place] # (Auto) Seg Neutrophils % Seg Neuts % (Manual) Lymphocytes % (Manual) Monocytes % (Manual) Seg Neutrophils # Seg Neutrophils # Man Lymphocytes # (Manual) Monocytes # (Manual) ABG pH POC ABG pCO2 POC ABG pO2 ABG Hemoglobin ABG Oxyhemoglobin ABG Sodium ABG Potassium ABG Chloride ABG Glucose Carboxyhemoglobin Sodium Potassium Chloride BUN Creatinine Glucose POC Glucose 181 H 167 H 144 H Calcium Phosphorus Magnesium AST ALT Total Creatine Kinase CK-MB (CK-2) Troponin T Total Protein Albumin HDL Cholesterol TSH Free T3 Index Arterial Blood Glucose Arterial Blood Ionized Calcium Urine pH Urine WBC (Auto) Urine Creatinine Acetaminophen Crossmatch 04/26/21 04/26/21 04/26/21 04:30 05:44 09:30 WBC RBC Hgb Hct MCV MCH RDW Plt Count Lymph % (Auto) [place] % (Auto) [place] # (Auto) Seg Neutrophils % Seg Neuts % (Manual) Lymphocytes % (Manual) Monocytes % (Manual) Seg Neutrophils # Seg Neutrophils # Man Lymphocytes # (Manual) Monocytes # (Manual) ABG pH 7.529 H POC ABG pCO2 POC ABG pO2 66.1 L ABG Hemoglobin 11.2 L ABG Oxyhemoglobin 92.8 L ABG Sodium ABG Potassium ABG Chloride ABG Glucose 216 H Carboxyhemoglobin 0.3 L Sodium Potassium Chloride BUN 82 H Creatinine 2.7 H Glucose 238 H POC Glucose 202 H Calcium Phosphorus Magnesium AST ALT Total Creatine Kinase CK-MB (CK-2) Troponin T Total Protein Albumin HDL Cholesterol TSH Free T3 Index Arterial Blood Glucose 216 H Arterial Blood Ionized Calcium Urine pH Urine WBC (Auto) Urine Creatinine Acetaminophen Crossmatch 04/26/21 04/26/21 04/26/21 09:30 11:32 17:21 WBC 24.7 H RBC 3.32 L Hgb Hct MCV MCH RDW Plt Count Lymph % (Auto) [place] % (Auto) [place] # (Auto) Seg Neutrophils % Seg Neuts % (Manual) Lymphocytes % (Manual) Monocytes % (Manual) Seg Neutrophils # Seg Neutrophils # Man Lymphocytes # (Manual) Monocytes # (Manual) ABG pH POC ABG pCO2 POC ABG pO2 ABG Hemoglobin ABG Oxyhemoglobin ABG Sodium ABG Potassium ABG Chloride ABG Glucose Carboxyhemoglobin Sodium Potassium Chloride BUN Creatinine Glucose POC Glucose 245 H 264 H Calcium Phosphorus Magnesium AST ALT Total Creatine Kinase CK-MB (CK-2) Troponin T Total Protein Albumin HDL Cholesterol TSH Free T3 Index Arterial Blood Glucose Arterial Blood Ionized Calcium Urine pH Urine WBC (Auto) Urine Creatinine Acetaminophen Crossmatch 04/26/21 04/27/21 04/27/21 23:18 04:23 04:54 WBC RBC Hgb Hct MCV MCH RDW Plt Count Lymph % (Auto) [place] % (Auto) [place] # (Auto) Seg Neutrophils % Seg Neuts % (Manual) Lymphocytes % (Manual) Monocytes % (Manual) Seg Neutrophils # Seg Neutrophils # Man Lymphocytes # (Manual) Monocytes # (Manual) ABG pH 7.549 H POC ABG pCO2 30.0 L POC ABG pO2 64.9 L ABG Hemoglobin 11 L ABG Oxyhemoglobin 93.3 L ABG Sodium ABG Potassium ABG Chloride ABG Glucose 325 H Carboxyhemoglobin 0.3 L Sodium Potassium Chloride BUN Creatinine Glucose POC Glucose 201 H 298 H Calcium Phosphorus Magnesium AST ALT Total Creatine Kinase CK-MB (CK-2) Troponin T Total Protein Albumin HDL Cholesterol TSH Free T3 Index Arterial Blood Glucose 325 H Arterial Blood Ionized Calcium Urine pH Urine WBC (Auto) Urine Creatinine Acetaminophen Crossmatch 04/27/21 04/27/21 04/27/21 07:52 07:52 11:22 WBC 23.0 H RBC 3.32 L Hgb Hct MCV MCH RDW 15.5 H Plt Count Lymph % (Auto) [place] % (Auto) [place] # (Auto) Seg Neutrophils % Seg Neuts % (Manual) Lymphocytes % (Manual) Monocytes % (Manual) Seg Neutrophils # Seg Neutrophils # Man Lymphocytes # (Manual) Monocytes # (Manual) ABG pH POC ABG pCO2 POC ABG pO2 ABG Hemoglobin ABG Oxyhemoglobin ABG Sodium ABG Potassium ABG Chloride ABG Glucose Carboxyhemoglobin Sodium Potassium 3.5 L Chloride BUN 90 H Creatinine 2.8 H Glucose 286 H POC Glucose 251 H Calcium Phosphorus Magnesium AST ALT Total Creatine Kinase CK-MB (CK-2) Troponin T Total Protein Albumin HDL Cholesterol TSH Free T3 Index Arterial Blood Glucose Arterial Blood Ionized Calcium Urine pH Urine WBC (Auto) Urine Creatinine Acetaminophen Crossmatch 04/27/21 04/27/21 04/27/21 17:21 17:45 23:05 WBC RBC Hgb Hct MCV MCH RDW Plt Count Lymph % (Auto) [place] % (Auto) [place] # (Auto) Seg Neutrophils % Seg Neuts % (Manual) Lymphocytes % (Manual) Monocytes % (Manual) Seg Neutrophils # Seg Neutrophils # Man Lymphocytes # (Manual) Monocytes # (Manual) ABG pH POC ABG pCO2 POC ABG pO2 ABG Hemoglobin ABG Oxyhemoglobin ABG Sodium ABG Potassium ABG Chloride ABG Glucose Carboxyhemoglobin Sodium Potassium Chloride BUN Creatinine Glucose POC Glucose 180 H 178 H 189 H Calcium Phosphorus Magnesium AST ALT Total Creatine Kinase CK-MB (CK-2) Troponin T Total Protein Albumin HDL Cholesterol TSH Free T3 Index Arterial Blood Glucose Arterial Blood Ionized Calcium Urine pH Urine WBC (Auto) Urine Creatinine Acetaminophen Crossmatch 04/28/21 04/28/21 04/28/21 03:14 04:13 04:13 WBC 17.6 H RBC 3.03 L Hgb 9.7 L Hct 29.5 L MCV MCH RDW Plt Count Lymph % (Auto) [place] % (Auto) [place] # (Auto) Seg Neutrophils % Seg Neuts % (Manual) Lymphocytes % (Manual) Monocytes % (Manual) Seg Neutrophils # Seg Neutrophils # Man Lymphocytes # (Manual) Monocytes # (Manual) ABG pH 7.507 H POC ABG pCO2 POC ABG pO2 62.0 L ABG Hemoglobin 10.2 L ABG Oxyhemoglobin 91.9 L ABG Sodium ABG Potassium ABG Chloride ABG Glucose 337 H Carboxyhemoglobin 0.2 L Sodium Potassium Chloride BUN 101 H Creatinine 3.1 H Glucose 304 H POC Glucose Calcium Phosphorus Magnesium AST 61 H ALT 64 H Total Creatine Kinase CK-MB (CK-2) Troponin T Total Protein 6.2 L Albumin 2.6 L HDL Cholesterol TSH Free T3 Index Arterial Blood Glucose 337 H Arterial Blood Ionized Calcium Urine pH Urine WBC (Auto) Urine Creatinine Acetaminophen Crossmatch 05/29/21 05/29/21 05/29/21 05:01 11:28 18:23 WBC RBC Hgb Hct MCV MCH RDW Plt Count Lymph % (Auto) [place] % (Auto) [place] # (Auto) Seg Neutrophils % Seg Neuts % (Manual) Lymphocytes % (Manual) Monocytes % (Manual) Seg Neutrophils # Seg Neutrophils # Man Lymphocytes # (Manual) Monocytes # (Manual) ABG pH POC ABG pCO2 POC ABG pO2 ABG Hemoglobin ABG Oxyhemoglobin ABG Sodium ABG Potassium ABG Chloride ABG Glucose Carboxyhemoglobin Sodium Potassium Chloride BUN Creatinine Glucose POC Glucose 282 H 263 H 200 H Calcium Phosphorus Magnesium AST ALT Total Creatine Kinase CK-MB (CK-2) Troponin T Total Protein Albumin HDL Cholesterol TSH Free T3 Index Arterial Blood Glucose Arterial Blood Ionized Calcium Urine pH Urine WBC (Auto) Urine Creatinine Acetaminophen Crossmatch 04/28/21 04/29/21 04/29/21 23:49 03:24 04:22 WBC RBC Hgb Hct MCV MCH RDW Plt Count Lymph % (Auto) [place] % (Auto) [place] # (Auto) Seg Neutrophils % Seg Neuts % (Manual) Lymphocytes % (Manual) Monocytes % (Manual) Seg Neutrophils # Seg Neutrophils # Man Lymphocytes # (Manual) Monocytes # (Manual) ABG pH 7.546 H POC ABG pCO2 POC ABG pO2 52.4 L ABG Hemoglobin 10.5 L ABG Oxyhemoglobin 88.3 L ABG Sodium ABG Potassium ABG Chloride ABG Glucose 217 H Carboxyhemoglobin 0.4 L Sodium 148 H Potassium Chloride BUN 110 H Creatinine 3.1 H Glucose 208 H POC Glucose 238 H Calcium Phosphorus Magnesium AST ALT Total Creatine Kinase CK-MB (CK-2) Troponin T Total Protein Albumin HDL Cholesterol TSH Free T3 Index Arterial Blood Glucose 217 H Arterial Blood Ionized Calcium Urine pH Urine WBC (Auto) Urine Creatinine Acetaminophen Crossmatch 04/29/21 04/29/21 04/29/21 04:22 05:08 11:26 WBC 15.2 H RBC 3.30 L Hgb 9.8 L Hct MCV MCH RDW Plt Count Lymph % (Auto) [place] % (Auto) [place] # (Auto) Seg Neutrophils % Seg Neuts % (Manual) Lymphocytes % (Manual) Monocytes % (Manual) Seg Neutrophils # Seg Neutrophils # Man Lymphocytes # (Manual) Monocytes # (Manual) ABG pH POC ABG pCO2 POC ABG pO2 ABG Hemoglobin ABG Oxyhemoglobin ABG Sodium ABG Potassium ABG Chloride ABG Glucose Carboxyhemoglobin Sodium Potassium Chloride BUN Creatinine Glucose POC Glucose 181 H 218 H Calcium Phosphorus Magnesium AST ALT Total Creatine Kinase CK-MB (CK-2) Troponin T Total Protein Albumin HDL Cholesterol TSH Free T3 Index Arterial Blood Glucose Arterial Blood Ionized Calcium Urine pH Urine WBC (Auto) Urine Creatinine Acetaminophen Crossmatch 04/29/21 04/29/21 04/30/21 17:06 23:06 03:58 WBC RBC Hgb Hct MCV MCH RDW Plt Count Lymph % (Auto) [place] % (Auto) [place] # (Auto) Seg Neutrophils % Seg Neuts % (Manual) Lymphocytes % (Manual) Monocytes % (Manual) Seg Neutrophils # Seg Neutrophils # Man Lymphocytes # (Manual) Monocytes # (Manual) ABG pH 7.547 H POC ABG pCO2 31.3 L POC ABG pO2 58.4 L ABG Hemoglobin 9.6 L ABG Oxyhemoglobin 91.1 L ABG Sodium ABG Potassium ABG Chloride 108.0 H ABG Glucose 248 H Carboxyhemoglobin 0.2 L Sodium Potassium Chloride BUN Creatinine Glucose POC Glucose 223 H 252 H Calcium Phosphorus Magnesium AST ALT Total Creatine Kinase CK-MB (CK-2) Troponin T Total Protein Albumin HDL Cholesterol TSH Free T3 Index Arterial Blood Glucose 248 H Arterial Blood Ionized Calcium Urine pH Urine WBC (Auto) Urine Creatinine Acetaminophen Crossmatch 04/30/21 04/30/21 04/30/21 05:23 05:54 11:47 WBC RBC Hgb Hct MCV MCH RDW Plt Count Lymph % (Auto) [place] % (Auto) [place] # (Auto) Seg Neutrophils % Seg Neuts % (Manual) Lymphocytes % (Manual) Monocytes % (Manual) Seg Neutrophils # Seg Neutrophils # Man Lymphocytes # (Manual) Monocytes # (Manual) ABG pH POC ABG pCO2 POC ABG pO2 ABG Hemoglobin ABG Oxyhemoglobin ABG Sodium ABG Potassium ABG Chloride ABG Glucose Carboxyhemoglobin Sodium Potassium Chloride BUN 118 H Creatinine 3.3 H Glucose 263 H POC Glucose 244 H 237 H Calcium Phosphorus Magnesium AST ALT Total Creatine Kinase CK-MB (CK-2) Troponin T Total Protein Albumin HDL Cholesterol TSH Free T3 Index Arterial Blood Glucose Arterial Blood Ionized Calcium Urine pH Urine WBC (Auto) Urine Creatinine Acetaminophen Crossmatch 04/30/21 04/30/2121 17:26 17:45 23:51 WBC RBC Hgb Hct MCV MCH RDW Plt Count Lymph % (Auto) [place] % (Auto) [place] # (Auto) Seg Neutrophils % Seg Neuts % (Manual) Lymphocytes % (Manual) Monocytes % (Manual) Seg Neutrophils # Seg Neutrophils # Man Lymphocytes # (Manual) Monocytes # (Manual) ABG pH POC ABG pCO2 POC ABG pO2 ABG Hemoglobin ABG Oxyhemoglobin ABG Sodium ABG Potassium ABG Chloride ABG Glucose Carboxyhemoglobin Sodium Potassium Chloride BUN Creatinine Glucose POC Glucose 193 H 197 H Calcium Phosphorus Magnesium AST ALT Total Creatine Kinase CK-MB (CK-2) Troponin T Total Protein Albumin HDL Cholesterol TSH Free T3 Index Arterial Blood Glucose Arterial Blood Ionized Calcium Urine pH Urine WBC (Auto) 48.0 H Urine Creatinine Acetaminophen Crossmatch 05/01/21 05/01/21 05/01/21 04:02 04:57 07:11 WBC 12.3 H RBC 2.83 L Hgb 8.8 L Hct 27.3 L MCV MCH RDW Plt Count Lymph % (Auto) [place] % (Auto) [place] # (Auto) Seg Neutrophils % Seg Neuts % (Manual) 80.0 H Lymphocytes % (Manual) 5.0 L Monocytes % (Manual) Seg Neutrophils # Seg Neutrophils # Man 9.8 H Lymphocytes # (Manual) 0.6 L Monocytes # (Manual) ABG pH 7.466 H POC ABG pCO2 POC ABG pO2 61.4 L ABG Hemoglobin 9.0 L ABG Oxyhemoglobin 91.1 L ABG Sodium ABG Potassium ABG Chloride 110.0 H ABG Glucose 245 H Carboxyhemoglobin Sodium Potassium Chloride BUN Creatinine Glucose POC Glucose 193 H Calcium Phosphorus Magnesium AST ALT Total Creatine Kinase CK-MB (CK-2) Troponin T Total Protein Albumin HDL Cholesterol TSH Free T3 Index Arterial Blood Glucose 245 H Arterial Blood Ionized Calcium Urine pH Urine WBC (Auto) Urine Creatinine Acetaminophen Crossmatch 05/01/21 05/01/21 05/01/21 07:11 07:45 11:30 WBC RBC Hgb Hct MCV MCH RDW Plt Count Lymph % (Auto) [place] % (Auto) [place] # (Auto) Seg Neutrophils % Seg Neuts % (Manual) Lymphocytes % (Manual) Monocytes % (Manual) Seg Neutrophils # Seg Neutrophils # Man Lymphocytes # (Manual) Monocytes # (Manual) ABG pH POC ABG pCO2 POC ABG pO2 ABG Hemoglobin ABG Oxyhemoglobin ABG Sodium ABG Potassium ABG Chloride ABG Glucose Carboxyhemoglobin Sodium 146 H Potassium Chloride 108.4 H BUN 122 H Creatinine 3.4 H Glucose 235 H POC Glucose 212 H 247 H Calcium Phosphorus Magnesium AST ALT Total Creatine Kinase CK-MB (CK-2) Troponin T Total Protein Albumin HDL Cholesterol TSH Free T3 Index Arterial Blood Glucose Arterial Blood Ionized Calcium Urine pH Urine WBC (Auto) Urine Creatinine Acetaminophen Crossmatch 05/01/21 05/01/21 05/01/21 11:31 17:42 23:49 WBC RBC Hgb Hct MCV MCH RDW Plt Count Lymph % (Auto) [place] % (Auto) [place] # (Auto) Seg Neutrophils % Seg Neuts % (Manual) Lymphocytes % (Manual) Monocytes % (Manual) Seg Neutrophils # Seg Neutrophils # Man Lymphocytes # (Manual) Monocytes # (Manual) ABG pH POC ABG pCO2 POC ABG pO2 ABG Hemoglobin ABG Oxyhemoglobin ABG Sodium ABG Potassium ABG Chloride ABG Glucose Carboxyhemoglobin Sodium Potassium Chloride BUN Creatinine Glucose POC Glucose 258 H 171 H 167 H Calcium Phosphorus Magnesium AST ALT Total Creatine Kinase CK-MB (CK-2) Troponin T Total Protein Albumin HDL Cholesterol TSH Free T3 Index Arterial Blood Glucose Arterial Blood Ionized Calcium Urine pH Urine WBC (Auto) Urine Creatinine Acetaminophen Crossmatch 05/02/21 05/02/21 05/02/21 05:12 08:34 11:53 WBC RBC Hgb Hct MCV MCH RDW Plt Count Lymph % (Auto) [place] % (Auto) [place] # (Auto) Seg Neutrophils % Seg Neuts % (Manual) Lymphocytes % (Manual) Monocytes % (Manual) Seg Neutrophils # Seg Neutrophils # Man Lymphocytes # (Manual) Monocytes # (Manual) ABG pH POC ABG pCO2 POC ABG pO2 ABG Hemoglobin ABG Oxyhemoglobin ABG Sodium ABG Potassium ABG Chloride ABG Glucose Carboxyhemoglobin Sodium 148 H Potassium Chloride 110.4 H BUN 124 H Creatinine 3.4 H Glucose 208 H POC Glucose 163 H 185 H Calcium 8.3 L Phosphorus Magnesium AST ALT Total Creatine Kinase CK-MB (CK-2) Troponin T Total Protein Albumin HDL Cholesterol TSH Free T3 Index Arterial Blood Glucose Arterial Blood Ionized Calcium Urine pH Urine WBC (Auto) Urine Creatinine Acetaminophen Crossmatch 05/02/21 05/02/21 05/03/21 17:28 23:32 03:57 WBC RBC Hgb Hct MCV MCH RDW Plt Count Lymph % (Auto) [place] % (Auto) [place] # (Auto) Seg Neutrophils % Seg Neuts % (Manual) Lymphocytes % (Manual) Monocytes % (Manual) Seg Neutrophils # Seg Neutrophils # Man Lymphocytes # (Manual) Monocytes # (Manual) ABG pH 7.531 H POC ABG pCO2 31.0 L POC ABG pO2 64.3 L ABG Hemoglobin 9.0 L ABG Oxyhemoglobin 92.6 L ABG Sodium 145.7 H ABG Potassium ABG Chloride 112.0 H ABG Glucose 202 H Carboxyhemoglobin Sodium Potassium Chloride BUN Creatinine Glucose POC Glucose 147 H 202 H Calcium Phosphorus Magnesium AST ALT Total Creatine Kinase CK-MB (CK-2) Troponin T Total Protein Albumin HDL Cholesterol TSH Free T3 Index Arterial Blood Glucose 202 H Arterial Blood Ionized Calcium Urine pH Urine WBC (Auto) Urine Creatinine Acetaminophen Crossmatch 05/03/21 05/03/21 05/03/21 05:14 05:44 11:10 WBC RBC Hgb Hct MCV MCH RDW Plt Count Lymph % (Auto) [place] % (Auto) [place] # (Auto) Seg Neutrophils % Seg Neuts % (Manual) Lymphocytes % (Manual) Monocytes % (Manual) Seg Neutrophils # Seg Neutrophils # Man Lymphocytes # (Manual) Monocytes # (Manual) ABG pH POC ABG pCO2 POC ABG pO2 ABG Hemoglobin ABG Oxyhemoglobin ABG Sodium ABG Potassium ABG Chloride ABG Glucose Carboxyhemoglobin Sodium 147 H Potassium Chloride 109.7 H BUN 121 H Creatinine 3.1 H Glucose 190 H POC Glucose 175 H 202 H Calcium Phosphorus Magnesium AST ALT Total Creatine Kinase CK-MB (CK-2) Troponin T Total Protein Albumin HDL Cholesterol TSH Free T3 Index Arterial Blood Glucose Arterial Blood Ionized Calcium Urine pH Urine WBC (Auto) Urine Creatinine Acetaminophen Crossmatch 05/03/21 05/04/21 05/04/21 23:58 04:57 04:57 WBC RBC 2.61 L Hgb 8.2 L Hct 25.4 L MCV 98 H MCH RDW 15.3 H Plt Count Lymph % (Auto) [place] % (Auto) [place] # (Auto) Seg Neutrophils % Seg Neuts % (Manual) Lymphocytes % (Manual) Monocytes % (Manual) Seg Neutrophils # Seg Neutrophils # Man Lymphocytes # (Manual) Monocytes # (Manual) ABG pH POC ABG pCO2 POC ABG pO2 ABG Hemoglobin ABG Oxyhemoglobin ABG Sodium ABG Potassium ABG Chloride ABG Glucose Carboxyhemoglobin Sodium 147 H Potassium Chloride 111.0 H BUN 104 H Creatinine 2.8 H Glucose 179 H POC Glucose 131 H Calcium Phosphorus Magnesium AST ALT Total Creatine Kinase CK-MB (CK-2) Troponin T Total Protein Albumin HDL Cholesterol TSH Free T3 Index Arterial Blood Glucose Arterial Blood Ionized Calcium Urine pH Urine WBC (Auto) Urine Creatinine Acetaminophen Crossmatch 05/04/21 05/04/21 05/04/21 05:19 11:28 17:02 WBC RBC Hgb Hct MCV MCH RDW Plt Count Lymph % (Auto) [place] % (Auto) [place] # (Auto) Seg Neutrophils % Seg Neuts % (Manual) Lymphocytes % (Manual) Monocytes % (Manual) Seg Neutrophils # Seg Neutrophils # Man Lymphocytes # (Manual) Monocytes # (Manual) ABG pH POC ABG pCO2 POC ABG pO2 ABG Hemoglobin ABG Oxyhemoglobin ABG Sodium ABG Potassium ABG Chloride ABG Glucose Carboxyhemoglobin Sodium Potassium Chloride BUN Creatinine Glucose POC Glucose 168 H 206 H 213 H Calcium Phosphorus Magnesium AST ALT Total Creatine Kinase CK-MB (CK-2) Troponin T Total Protein Albumin HDL Cholesterol TSH Free T3 Index Arterial Blood Glucose Arterial Blood Ionized Calcium Urine pH Urine WBC (Auto) Urine Creatinine Acetaminophen Crossmatch 05/04/21 05/05/21 05/05/21 23:13 04:55 05:15 WBC RBC Hgb Hct MCV MCH RDW Plt Count Lymph % (Auto) [place] % (Auto) [place] # (Auto) Seg Neutrophils % Seg Neuts % (Manual) Lymphocytes % (Manual) Monocytes % (Manual) Seg Neutrophils # Seg Neutrophils # Man Lymphocytes # (Manual) Monocytes # (Manual) ABG pH POC ABG pCO2 POC ABG pO2 ABG Hemoglobin ABG Oxyhemoglobin ABG Sodium ABG Potassium ABG Chloride ABG Glucose Carboxyhemoglobin Sodium Potassium Chloride BUN 91 H Creatinine 2.4 H Glucose 255 H POC Glucose 232 H 235 H Calcium Phosphorus Magnesium AST ALT Total Creatine Kinase CK-MB (CK-2) Troponin T Total Protein Albumin HDL Cholesterol TSH Free T3 Index Arterial Blood Glucose Arterial Blood Ionized Calcium Urine pH Urine WBC (Auto) Urine Creatinine Acetaminophen Crossmatch 05/05/21 05/05/21 05/05/21 11:41 17:46 23:40 WBC RBC Hgb Hct MCV MCH RDW Plt Count Lymph % (Auto) [place] % (Auto) [place] # (Auto) Seg Neutrophils % Seg Neuts % (Manual) Lymphocytes % (Manual) Monocytes % (Manual) Seg Neutrophils # Seg Neutrophils # Man Lymphocytes # (Manual) Monocytes # (Manual) ABG pH POC ABG pCO2 POC ABG pO2 ABG Hemoglobin ABG Oxyhemoglobin ABG Sodium ABG Potassium ABG Chloride ABG Glucose Carboxyhemoglobin Sodium Potassium Chloride BUN Creatinine Glucose POC Glucose 199 H 231 H 224 H Calcium Phosphorus Magnesium AST ALT Total Creatine Kinase CK-MB (CK-2) Troponin T Total Protein Albumin HDL Cholesterol TSH Free T3 Index Arterial Blood Glucose Arterial Blood Ionized Calcium Urine pH Urine WBC (Auto) Urine Creatinine Acetaminophen Crossmatch 05/06/21 05/06/21 05/06/21 04:00 05:37 07:12 WBC RBC Hgb Hct MCV MCH RDW Plt Count Lymph % (Auto) [place] % (Auto) [place] # (Auto) Seg Neutrophils % Seg Neuts % (Manual) Lymphocytes % (Manual) Monocytes % (Manual) Seg Neutrophils # Seg Neutrophils # Man Lymphocytes # (Manual) Monocytes # (Manual) ABG pH 7.464 H POC ABG pCO2 POC ABG pO2 74.2 L ABG Hemoglobin 10.5 L ABG Oxyhemoglobin ABG Sodium ABG Potassium ABG Chloride 110.0 H ABG Glucose 214 H Carboxyhemoglobin 0.4 L Sodium 146 H Potassium Chloride 110.4 H BUN 82 H Creatinine 2.3 H Glucose 154 H POC Glucose 165 H Calcium Phosphorus Magnesium AST ALT Total Creatine Kinase CK-MB (CK-2) Troponin T Total Protein Albumin HDL Cholesterol TSH Free T3 Index Arterial Blood Glucose 214 H Arterial Blood Ionized Calcium Urine pH Urine WBC (Auto) Urine Creatinine Acetaminophen Crossmatch 05/06/21 05/06/21 05/07/21 17:11 23:40 05:26 WBC RBC Hgb Hct MCV MCH RDW Plt Count Lymph % (Auto) [place] % (Auto) [place] # (Auto) Seg Neutrophils % Seg Neuts % (Manual) Lymphocytes % (Manual) Monocytes % (Manual) Seg Neutrophils # Seg Neutrophils # Man Lymphocytes # (Manual) Monocytes # (Manual) ABG pH POC ABG pCO2 POC ABG pO2 ABG Hemoglobin ABG Oxyhemoglobin ABG Sodium ABG Potassium ABG Chloride ABG Glucose Carboxyhemoglobin Sodium Potassium Chloride BUN Creatinine Glucose POC Glucose 126 H 165 H 156 H Calcium Phosphorus Magnesium AST ALT Total Creatine Kinase CK-MB (CK-2) Troponin T Total Protein Albumin HDL Cholesterol TSH Free T3 Index Arterial Blood Glucose Arterial Blood Ionized Calcium Urine pH Urine WBC (Auto) Urine Creatinine Acetaminophen Crossmatch 05/07/21 05/07/21 05/07/21 08:20 08:20 11:35 WBC RBC 2.58 L Hgb 7.9 L Hct 24.9 L MCV MCH RDW Plt Count Lymph % (Auto) [place] % (Auto) [place] # (Auto) Seg Neutrophils % Seg Neuts % (Manual) Lymphocytes % (Manual) Monocytes % (Manual) Seg Neutrophils # Seg Neutrophils # Man Lymphocytes # (Manual) Monocytes # (Manual) ABG pH POC ABG pCO2 POC ABG pO2 ABG Hemoglobin ABG Oxyhemoglobin ABG Sodium ABG Potassium ABG Chloride ABG Glucose Carboxyhemoglobin Sodium Potassium Chloride 108.4 H BUN 81 H Creatinine 2.4 H Glucose 133 H POC Glucose 112 H Calcium Phosphorus Magnesium AST ALT Total Creatine Kinase CK-MB (CK-2) Troponin T Total Protein Albumin HDL Cholesterol TSH Free T3 Index Arterial Blood Glucose Arterial Blood Ionized Calcium Urine pH Urine WBC (Auto) Urine Creatinine Acetaminophen Crossmatch 05/07/21 05/07/21 05/08/21 17:51 23:27 03:05 WBC RBC Hgb Hct MCV MCH RDW Plt Count Lymph % (Auto) [place] % (Auto) [place] # (Auto) Seg Neutrophils % Seg Neuts % (Manual) Lymphocytes % (Manual) Monocytes % (Manual) Seg Neutrophils # Seg Neutrophils # Man Lymphocytes # (Manual) Monocytes # (Manual) ABG pH 7.454 H POC ABG pCO2 POC ABG pO2 82.1 L ABG Hemoglobin 8.1 L ABG Oxyhemoglobin ABG Sodium ABG Potassium 4.8 H ABG Chloride 111.0 H ABG Glucose 194 H Carboxyhemoglobin Sodium Potassium Chloride BUN Creatinine Glucose POC Glucose 136 H 133 H Calcium Phosphorus Magnesium AST ALT Total Creatine Kinase CK-MB (CK-2) Troponin T Total Protein Albumin HDL Cholesterol TSH Free T3 Index Arterial Blood Glucose 194 H Arterial Blood Ionized Calcium Urine pH Urine WBC (Auto) Urine Creatinine Acetaminophen Crossmatch 05/08/21 05/08/21 05/08/21 05:52 07:07 07:07 WBC 12.0 H RBC 2.94 L Hgb 9.0 L Hct 28.5 L MCV MCH RDW Plt Count Lymph % (Auto) [place] % (Auto) [place] # (Auto) Seg Neutrophils % Seg Neuts % (Manual) Lymphocytes % (Manual) Monocytes % (Manual) Seg Neutrophils # Seg Neutrophils # Man Lymphocytes # (Manual) Monocytes # (Manual) ABG pH POC ABG pCO2 POC ABG pO2 ABG Hemoglobin ABG Oxyhemoglobin ABG Sodium ABG Potassium ABG Chloride ABG Glucose Carboxyhemoglobin Sodium Potassium Chloride BUN 73 H Creatinine 2.2 H Glucose 211 H POC Glucose 194 H Calcium Phosphorus Magnesium AST ALT Total Creatine Kinase CK-MB (CK-2) Troponin T Total Protein Albumin HDL Cholesterol TSH Free T3 Index Arterial Blood Glucose Arterial Blood Ionized Calcium Urine pH Urine WBC (Auto) Urine Creatinine Acetaminophen Crossmatch 05/08/21 05/08/21 05/08/21 11:19 17:20 23:22 WBC RBC Hgb Hct MCV MCH RDW Plt Count Lymph % (Auto) [place] % (Auto) [place] # (Auto) Seg Neutrophils % Seg Neuts % (Manual) Lymphocytes % (Manual) Monocytes % (Manual) Seg Neutrophils # Seg Neutrophils # Man Lymphocytes # (Manual) Monocytes # (Manual) ABG pH POC ABG pCO2 POC ABG pO2 ABG Hemoglobin ABG Oxyhemoglobin ABG Sodium ABG Potassium ABG Chloride ABG Glucose Carboxyhemoglobin Sodium Potassium Chloride BUN Creatinine Glucose POC Glucose 231 H 251 H 295 H Calcium Phosphorus Magnesium AST ALT Total Creatine Kinase CK-MB (CK-2) Troponin T Total Protein Albumin HDL Cholesterol TSH Free T3 Index Arterial Blood Glucose Arterial Blood Ionized Calcium Urine pH Urine WBC (Auto) Urine Creatinine Acetaminophen Crossmatch 05/09/21 05/09/21 05/09/21 05:39 07:36 11:39 WBC RBC Hgb Hct MCV MCH RDW Plt Count Lymph % (Auto) [place] % (Auto) [place] # (Auto) Seg Neutrophils % Seg Neuts % (Manual) Lymphocytes % (Manual) Monocytes % (Manual) Seg Neutrophils # Seg Neutrophils # Man Lymphocytes # (Manual) Monocytes # (Manual) ABG pH POC ABG pCO2 POC ABG pO2 ABG Hemoglobin ABG Oxyhemoglobin ABG Sodium ABG Potassium ABG Chloride ABG Glucose Carboxyhemoglobin Sodium Potassium Chloride BUN 64 H Creatinine 2.2 H Glucose 308 H POC Glucose 240 H 330 H Calcium Phosphorus Magnesium AST ALT Total Creatine Kinase CK-MB (CK-2) Troponin T Total Protein Albumin HDL Cholesterol TSH Free T3 Index Arterial Blood Glucose Arterial Blood Ionized Calcium Urine pH Urine WBC (Auto) Urine Creatinine Acetaminophen Crossmatch 05/09/21 05/09/21 05/10/21 17:37 23:15 05:15 WBC RBC Hgb Hct MCV MCH RDW Plt Count Lymph % (Auto) [place] % (Auto) [place] # (Auto) Seg Neutrophils % Seg Neuts % (Manual) Lymphocytes % (Manual) Monocytes % (Manual) Seg Neutrophils # Seg Neutrophils # Man Lymphocytes # (Manual) Monocytes # (Manual) ABG pH POC ABG pCO2 POC ABG pO2 ABG Hemoglobin ABG Oxyhemoglobin ABG Sodium ABG Potassium ABG Chloride ABG Glucose Carboxyhemoglobin Sodium Potassium Chloride BUN Creatinine Glucose POC Glucose 174 H 152 H 146 H Calcium Phosphorus Magnesium AST ALT Total Creatine Kinase CK-MB (CK-2) Troponin T Total Protein Albumin HDL Cholesterol TSH Free T3 Index Arterial Blood Glucose Arterial Blood Ionized Calcium Urine pH Urine WBC (Auto) Urine Creatinine Acetaminophen Crossmatch 05/10/21 05/10/21 05/10/21 05:36 11:29 17:35 WBC RBC Hgb Hct MCV MCH RDW Plt Count Lymph % (Auto) [place] % (Auto) [place] # (Auto) Seg Neutrophils % Seg Neuts % (Manual) Lymphocytes % (Manual) Monocytes % (Manual) Seg Neutrophils # Seg Neutrophils # Man Lymphocytes # (Manual) Monocytes # (Manual) ABG pH POC ABG pCO2 POC ABG pO2 ABG Hemoglobin ABG Oxyhemoglobin ABG Sodium ABG Potassium ABG Chloride ABG Glucose Carboxyhemoglobin Sodium Potassium Chloride 110.7 H BUN 54 H Creatinine 2.2 H Glucose 164 H POC Glucose 202 H 109 H Calcium Phosphorus Magnesium AST ALT Total Creatine Kinase CK-MB (CK-2) Troponin T Total Protein Albumin HDL Cholesterol TSH Free T3 Index Arterial Blood Glucose Arterial Blood Ionized Calcium Urine pH Urine WBC (Auto) Urine Creatinine Acetaminophen Crossmatch 05/11/21 05/11/21 05/11/21 05:38 07:10 11:54 WBC RBC Hgb Hct MCV MCH RDW Plt Count Lymph % (Auto) [place] % (Auto) [place] # (Auto) Seg Neutrophils % Seg Neuts % (Manual) Lymphocytes % (Manual) Monocytes % (Manual) Seg Neutrophils # Seg Neutrophils # Man Lymphocytes # (Manual) Monocytes # (Manual) ABG pH POC ABG pCO2 POC ABG pO2 ABG Hemoglobin ABG Oxyhemoglobin ABG Sodium ABG Potassium ABG Chloride ABG Glucose Carboxyhemoglobin Sodium Potassium 5.2 H Chloride 108.8 H BUN 50 H Creatinine 2.2 H Glucose 176 H POC Glucose 135 H 219 H Calcium Phosphorus Magnesium AST ALT Total Creatine Kinase CK-MB (CK-2) Troponin T Total Protein Albumin HDL Cholesterol TSH Free T3 Index Arterial Blood Glucose Arterial Blood Ionized Calcium Urine pH Urine WBC (Auto) Urine Creatinine Acetaminophen Crossmatch 05/11/21 05/11/21 05/12/21 17:51 22:50 04:51 WBC RBC Hgb Hct MCV MCH RDW Plt Count Lymph % (Auto) [place] % (Auto) [place] # (Auto) Seg Neutrophils % Seg Neuts % (Manual) Lymphocytes % (Manual) Monocytes % (Manual) Seg Neutrophils # Seg Neutrophils # Man Lymphocytes # (Manual) Monocytes # (Manual) ABG pH POC ABG pCO2 POC ABG pO2 ABG Hemoglobin ABG Oxyhemoglobin ABG Sodium ABG Potassium ABG Chloride ABG Glucose Carboxyhemoglobin Sodium Potassium Chloride 108.2 H BUN 49 H Creatinine 2.2 H Glucose 161 H POC Glucose 169 H 118 H Calcium Phosphorus Magnesium AST ALT Total Creatine Kinase CK-MB (CK-2) Troponin T Total Protein Albumin HDL Cholesterol TSH Free T3 Index Arterial Blood Glucose Arterial Blood Ionized Calcium Urine pH Urine WBC (Auto) Urine Creatinine Acetaminophen Crossmatch 05/12/21 05/12/21 05/12/21 05:05 10:31 11:50 WBC RBC Hgb Hct MCV MCH RDW Plt Count Lymph % (Auto) [place] % (Auto) [place] # (Auto) Seg Neutrophils % Seg Neuts % (Manual) Lymphocytes % (Manual) Monocytes % (Manual) Seg Neutrophils # Seg Neutrophils # Man Lymphocytes # (Manual) Monocytes # (Manual) ABG pH 7.498 H POC ABG pCO2 POC ABG pO2 75.8 L ABG Hemoglobin 7.3 L ABG Oxyhemoglobin 93.4 L ABG Sodium ABG Potassium ABG Chloride 108.0 H ABG Glucose 199 H Carboxyhemoglobin 1.6 H Sodium Potassium Chloride BUN Creatinine Glucose POC Glucose 160 H 160 H Calcium Phosphorus Magnesium AST ALT Total Creatine Kinase CK-MB (CK-2) Troponin T Total Protein Albumin HDL Cholesterol TSH Free T3 Index Arterial Blood Glucose 199 H Arterial Blood Ionized Calcium Urine pH Urine WBC (Auto) Urine Creatinine Acetaminophen Crossmatch 05/12/21 05/12/21 05/13/21 17:39 23:36 05:49 WBC RBC Hgb Hct MCV MCH RDW Plt Count Lymph % (Auto) [place] % (Auto) [place] # (Auto) Seg Neutrophils % Seg Neuts % (Manual) Lymphocytes % (Manual) Monocytes % (Manual) Seg Neutrophils # Seg Neutrophils # Man Lymphocytes # (Manual) Monocytes # (Manual) ABG pH POC ABG pCO2 POC ABG pO2 ABG Hemoglobin ABG Oxyhemoglobin ABG Sodium ABG Potassium ABG Chloride ABG Glucose Carboxyhemoglobin Sodium Potassium Chloride BUN Creatinine Glucose POC Glucose 148 H 148 H 173 H Calcium Phosphorus Magnesium AST ALT Total Creatine Kinase CK-MB (CK-2) Troponin T Total Protein Albumin HDL Cholesterol TSH Free T3 Index Arterial Blood Glucose Arterial Blood Ionized Calcium Urine pH Urine WBC (Auto) Urine Creatinine Acetaminophen Crossmatch 05/13/21 05/13/21 05/13/21 05:58 13:09 17:01 WBC RBC Hgb Hct MCV MCH RDW Plt Count Lymph % (Auto) [place] % (Auto) [place] # (Auto) Seg Neutrophils % Seg Neuts % (Manual) Lymphocytes % (Manual) Monocytes % (Manual) Seg Neutrophils # Seg Neutrophils # Man Lymphocytes # (Manual) Monocytes # (Manual) ABG pH POC ABG pCO2 POC ABG pO2 ABG Hemoglobin ABG Oxyhemoglobin ABG Sodium ABG Potassium ABG Chloride ABG Glucose Carboxyhemoglobin Sodium Potassium Chloride 108.0 H BUN 53 H Creatinine 2.2 H Glucose 178 H POC Glucose 191 H 151 H Calcium Phosphorus Magnesium AST ALT Total Creatine Kinase CK-MB (CK-2) Troponin T Total Protein Albumin HDL Cholesterol TSH Free T3 Index Arterial Blood Glucose Arterial Blood Ionized Calcium Urine pH Urine WBC (Auto) Urine Creatinine Acetaminophen Crossmatch 05/14/21 05/14/21 05/14/21 00:02 04:48 08:16 WBC RBC Hgb Hct MCV MCH RDW Plt Count Lymph % (Auto) [place] % (Auto) [place] # (Auto) Seg Neutrophils % Seg Neuts % (Manual) Lymphocytes % (Manual) Monocytes % (Manual) Seg Neutrophils # Seg Neutrophils # Man Lymphocytes # (Manual) Monocytes # (Manual) ABG pH POC ABG pCO2 POC ABG pO2 ABG Hemoglobin ABG Oxyhemoglobin ABG Sodium ABG Potassium ABG Chloride ABG Glucose Carboxyhemoglobin Sodium Potassium Chloride BUN 45 H Creatinine 2.0 H Glucose 207 H POC Glucose 148 H 193 H Calcium Phosphorus Magnesium AST ALT Total Creatine Kinase CK-MB (CK-2) Troponin T Total Protein Albumin HDL Cholesterol TSH Free T3 Index Arterial Blood Glucose Arterial Blood Ionized Calcium Urine pH Urine WBC (Auto) Urine Creatinine Acetaminophen Crossmatch 05/14/21 05/14/21 05/14/21 08:50 12:44 17:29 WBC RBC 2.16 L Hgb 7.0 L Hct 21.2 L MCV 98 H MCH 33 H RDW 16.0 H Plt Count Lymph % (Auto) [place] % (Auto) [place] # (Auto) Seg Neutrophils % Seg Neuts % (Manual) Lymphocytes % (Manual) Monocytes % (Manual) Seg Neutrophils # Seg Neutrophils # Man Lymphocytes # (Manual) Monocytes # (Manual) ABG pH POC ABG pCO2 POC ABG pO2 ABG Hemoglobin ABG Oxyhemoglobin ABG Sodium ABG Potassium ABG Chloride ABG Glucose Carboxyhemoglobin Sodium Potassium Chloride BUN Creatinine Glucose POC Glucose 215 H 118 H Calcium Phosphorus Magnesium AST ALT Total Creatine Kinase CK-MB (CK-2) Troponin T Total Protein Albumin HDL Cholesterol TSH Free T3 Index Arterial Blood Glucose Arterial Blood Ionized Calcium Urine pH Urine WBC (Auto) Urine Creatinine Acetaminophen Crossmatch 05/14/21 05/15/21 05/15/21 19:00 05:11 05:51 WBC RBC Hgb Hct MCV MCH RDW Plt Count Lymph % (Auto) [place] % (Auto) [place] # (Auto) Seg Neutrophils % Seg Neuts % (Manual) Lymphocytes % (Manual) Monocytes % (Manual) Seg Neutrophils # Seg Neutrophils # Man Lymphocytes # (Manual) Monocytes # (Manual) ABG pH POC ABG pCO2 POC ABG pO2 ABG Hemoglobin ABG Oxyhemoglobin ABG Sodium ABG Potassium ABG Chloride ABG Glucose Carboxyhemoglobin Sodium Potassium 5.3 H Chloride BUN 42 H Creatinine 2.0 H Glucose 123 H POC Glucose 116 H Calcium Phosphorus Magnesium AST ALT Total Creatine Kinase CK-MB (CK-2) Troponin T Total Protein Albumin HDL Cholesterol TSH Free T3 Index Arterial Blood Glucose Arterial Blood Ionized Calcium Urine pH Urine WBC (Auto) Urine Creatinine Acetaminophen Crossmatch See Detail 05/15/21 05/15/21 05/15/21 05:51 11:27 22:00 WBC RBC 2.60 L Hgb 8.0 L Hct 24.6 L MCV MCH RDW 17.0 H Plt Count Lymph % (Auto) [place] % (Auto) 15.3 H [place] # (Auto) 1.1 H Seg Neutrophils % Seg Neuts % (Manual) Lymphocytes % (Manual) Monocytes % (Manual) Seg Neutrophils # Seg Neutrophils # Man Lymphocytes # (Manual) Monocytes # (Manual) ABG pH 7.473 H POC ABG pCO2 POC ABG pO2 77.7 L ABG Hemoglobin 8.4 L ABG Oxyhemoglobin ABG Sodium ABG Potassium 4.7 H ABG Chloride ABG Glucose 104 H Carboxyhemoglobin Sodium Potassium Chloride BUN Creatinine Glucose POC Glucose 156 H Calcium Phosphorus Magnesium AST ALT Total Creatine Kinase CK-MB (CK-2) Troponin T Total Protein Albumin HDL Cholesterol TSH Free T3 Index Arterial Blood Glucose 104 H Arterial Blood Ionized Calcium Urine pH Urine WBC (Auto) Urine Creatinine Acetaminophen Crossmatch 05/16/21 05/16/21 05/16/21 05:25 06:40 11:57 WBC RBC Hgb Hct MCV MCH RDW Plt Count Lymph % (Auto) [place] % (Auto) [place] # (Auto) Seg Neutrophils % Seg Neuts % (Manual) Lymphocytes % (Manual) Monocytes % (Manual) Seg Neutrophils # Seg Neutrophils # Man Lymphocytes # (Manual) Monocytes # (Manual) ABG pH POC ABG pCO2 POC ABG pO2 ABG Hemoglobin ABG Oxyhemoglobin ABG Sodium ABG Potassium ABG Chloride ABG Glucose Carboxyhemoglobin Sodium Potassium 5.4 H Chloride BUN 39 H Creatinine 2.0 H Glucose 165 H POC Glucose 143 H 191 H Calcium Phosphorus Magnesium AST ALT Total Creatine Kinase CK-MB (CK-2) Troponin T Total Protein Albumin HDL Cholesterol TSH Free T3 Index Arterial Blood Glucose Arterial Blood Ionized Calcium Urine pH Urine WBC (Auto) Urine Creatinine Acetaminophen Crossmatch 05/16/21 05/16/21 05/17/21 17:18 23:02 05:08 WBC RBC Hgb Hct MCV MCH RDW Plt Count Lymph % (Auto) [place] % (Auto) [place] # (Auto) Seg Neutrophils % Seg Neuts % (Manual) Lymphocytes % (Manual) Monocytes % (Manual) Seg Neutrophils # Seg Neutrophils # Man Lymphocytes # (Manual) Monocytes # (Manual) ABG pH POC ABG pCO2 POC ABG pO2 ABG Hemoglobin ABG Oxyhemoglobin ABG Sodium ABG Potassium ABG Chloride ABG Glucose Carboxyhemoglobin Sodium Potassium Chloride BUN Creatinine Glucose POC Glucose 157 H 127 H 171 H Calcium Phosphorus Magnesium AST ALT Total Creatine Kinase CK-MB (CK-2) Troponin T Total Protein Albumin HDL Cholesterol TSH Free T3 Index Arterial Blood Glucose Arterial Blood Ionized Calcium Urine pH Urine WBC (Auto) Urine Creatinine Acetaminophen Crossmatch 05/17/21 05/17/21 05/17/21 07:43 07:43 11:11 WBC RBC 2.83 L Hgb 8.6 L Hct 26.8 L MCV MCH RDW 16.2 H Plt Count Lymph % (Auto) [place] % (Auto) [place] # (Auto) Seg Neutrophils % Seg Neuts % (Manual) Lymphocytes % (Manual) Monocytes % (Manual) Seg Neutrophils # Seg Neutrophils # Man Lymphocytes # (Manual) Monocytes # (Manual) ABG pH POC ABG pCO2 POC ABG pO2 ABG Hemoglobin ABG Oxyhemoglobin ABG Sodium ABG Potassium ABG Chloride ABG Glucose Carboxyhemoglobin Sodium Potassium Chloride BUN 39 H Creatinine 2.1 H Glucose 183 H POC Glucose 182 H Calcium Phosphorus Magnesium AST ALT Total Creatine Kinase CK-MB (CK-2) Troponin T Total Protein Albumin HDL Cholesterol TSH Free T3 Index Arterial Blood Glucose Arterial Blood Ionized Calcium Urine pH Urine WBC (Auto) Urine Creatinine Acetaminophen Crossmatch 05/17/21 05/17/21 05/18/21 17:25 21:04 01:54 WBC RBC Hgb Hct MCV MCH RDW Plt Count Lymph % (Auto) [place] % (Auto) [place] # (Auto) Seg Neutrophils % Seg Neuts % (Manual) Lymphocytes % (Manual) Monocytes % (Manual) Seg Neutrophils # Seg Neutrophils # Man Lymphocytes # (Manual) Monocytes # (Manual) ABG pH POC ABG pCO2 POC ABG pO2 ABG Hemoglobin 9.2 L ABG Oxyhemoglobin ABG Sodium ABG Potassium ABG Chloride ABG Glucose 160 H Carboxyhemoglobin Sodium Potassium Chloride BUN Creatinine Glucose POC Glucose 117 H 130 H Calcium Phosphorus Magnesium AST ALT Total Creatine Kinase CK-MB (CK-2) Troponin T Total Protein Albumin HDL Cholesterol TSH Free T3 Index Arterial Blood Glucose 160 H Arterial Blood Ionized Calcium Urine pH Urine WBC (Auto) Urine Creatinine Acetaminophen Crossmatch 05/18/21 05/18/21 05/18/21 05:21 06:13 06:45 WBC RBC Hgb Hct MCV MCH RDW Plt Count Lymph % (Auto) [place] % (Auto) [place] # (Auto) Seg Neutrophils % Seg Neuts % (Manual) Lymphocytes % (Manual) Monocytes % (Manual) Seg Neutrophils # Seg Neutrophils # Man Lymphocytes # (Manual) Monocytes # (Manual) ABG pH POC ABG pCO2 POC ABG pO2 ABG Hemoglobin ABG Oxyhemoglobin ABG Sodium ABG Potassium ABG Chloride ABG Glucose Carboxyhemoglobin Sodium Potassium Chloride BUN 42 H Creatinine 2.1 H Glucose 154 H POC Glucose 163 H Calcium Phosphorus Magnesium AST ALT Total Creatine Kinase CK-MB (CK-2) Troponin T Total Protein Albumin HDL Cholesterol TSH Free T3 Index Arterial Blood Glucose Arterial Blood Ionized Calcium Urine pH Urine WBC (Auto) Urine Creatinine 104.7 H Acetaminophen Crossmatch 05/18/21 05/18/21 05/18/21 12:01 16:01 23:59 WBC RBC Hgb Hct MCV MCH RDW Plt Count Lymph % (Auto) [place] % (Auto) [place] # (Auto) Seg Neutrophils % Seg Neuts % (Manual) Lymphocytes % (Manual) Monocytes % (Manual) Seg Neutrophils # Seg Neutrophils # Man Lymphocytes # (Manual) Monocytes # (Manual) ABG pH POC ABG pCO2 POC ABG pO2 ABG Hemoglobin ABG Oxyhemoglobin ABG Sodium ABG Potassium ABG Chloride ABG Glucose Carboxyhemoglobin Sodium Potassium Chloride BUN Creatinine Glucose POC Glucose 209 H 142 H 118 H Calcium Phosphorus Magnesium AST ALT Total Creatine Kinase CK-MB (CK-2) Troponin T Total Protein Albumin HDL Cholesterol TSH Free T3 Index Arterial Blood Glucose Arterial Blood Ionized Calcium Urine pH Urine WBC (Auto) Urine Creatinine Acetaminophen Crossmatch 05/19/21 05/19/21 05/19/21 06:22 07:40 07:40 WBC RBC 2.55 L Hgb 8.1 L Hct 24.4 L MCV MCH RDW 16.5 H Plt Count Lymph % (Auto) [place] % (Auto) [place] # (Auto) Seg Neutrophils % Seg Neuts % (Manual) Lymphocytes % (Manual) Monocytes % (Manual) Seg Neutrophils # Seg Neutrophils # Man Lymphocytes # (Manual) Monocytes # (Manual) ABG pH POC ABG pCO2 POC ABG pO2 ABG Hemoglobin ABG Oxyhemoglobin ABG Sodium ABG Potassium ABG Chloride ABG Glucose Carboxyhemoglobin Sodium 136 L Potassium Chloride BUN 37 H Creatinine 2.0 H Glucose 163 H POC Glucose 151 H Calcium Phosphorus Magnesium AST ALT Total Creatine Kinase CK-MB (CK-2) Troponin T Total Protein Albumin HDL Cholesterol TSH Free T3 Index Arterial Blood Glucose Arterial Blood Ionized Calcium Urine pH Urine WBC (Auto) Urine Creatinine Acetaminophen Crossmatch 05/19/21 05/19/21 05/19/21 11:13 16:41 17:58 WBC RBC Hgb Hct MCV MCH RDW Plt Count Lymph % (Auto) [place] % (Auto) [place] # (Auto) Seg Neutrophils % Seg Neuts % (Manual) Lymphocytes % (Manual) Monocytes % (Manual) Seg Neutrophils # Seg Neutrophils # Man Lymphocytes # (Manual) Monocytes # (Manual) ABG pH POC ABG pCO2 POC ABG pO2 ABG Hemoglobin ABG Oxyhemoglobin ABG Sodium ABG Potassium ABG Chloride ABG Glucose Carboxyhemoglobin Sodium Potassium Chloride BUN Creatinine Glucose POC Glucose 162 H 112 H 106 H Calcium Phosphorus Magnesium AST ALT Total Creatine Kinase CK-MB (CK-2) Troponin T Total Protein Albumin HDL Cholesterol TSH Free T3 Index Arterial Blood Glucose Arterial Blood Ionized Calcium Urine pH Urine WBC (Auto) Urine Creatinine Acetaminophen Crossmatch 05/20/21 05/20/21 05/20/21 01:11 05:18 05:18 WBC RBC 2.59 L Hgb 8.0 L Hct 24.6 L MCV MCH RDW 16.1 H Plt Count Lymph % (Auto) [place] % (Auto) [place] # (Auto) Seg Neutrophils % Seg Neuts % (Manual) Lymphocytes % (Manual) Monocytes % (Manual) Seg Neutrophils # Seg Neutrophils # Man Lymphocytes # (Manual) Monocytes # (Manual) ABG pH POC ABG pCO2 POC ABG pO2 ABG Hemoglobin ABG Oxyhemoglobin ABG Sodium ABG Potassium ABG Chloride ABG Glucose Carboxyhemoglobin Sodium 134 L Potassium Chloride BUN 35 H Creatinine 1.9 H Glucose 185 H POC Glucose 172 H Calcium Phosphorus Magnesium AST ALT Total Creatine Kinase CK-MB (CK-2) Troponin T Total Protein Albumin HDL Cholesterol TSH Free T3 Index Arterial Blood Glucose Arterial Blood Ionized Calcium Urine pH Urine WBC (Auto) Urine Creatinine Acetaminophen Crossmatch 05/20/21 06:04 WBC RBC Hgb Hct MCV MCH RDW Plt Count Lymph % (Auto) [place] % (Auto) [place] # (Auto) Seg Neutrophils % Seg Neuts % (Manual) Lymphocytes % (Manual) Monocytes % (Manual) Seg Neutrophils # Seg Neutrophils # Man Lymphocytes # (Manual) Monocytes # (Manual) ABG pH POC ABG pCO2 POC ABG pO2 ABG Hemoglobin ABG Oxyhemoglobin ABG Sodium ABG Potassium ABG Chloride ABG Glucose Carboxyhemoglobin Sodium Potassium Chloride BUN Creatinine Glucose POC Glucose 202 H Calcium Phosphorus Magnesium AST ALT Total Creatine Kinase CK-MB (CK-2) Troponin T Total Protein Albumin HDL Cholesterol TSH Free T3 Index Arterial Blood Glucose Arterial Blood Ionized Calcium Urine pH Urine WBC (Auto) Urine Creatinine Acetaminophen Crossmatch Allied health notes reviewed: nursing
--- NOTE | 2021-05-20 15:36 | Progress Note ---
Assessment and Plan 1. Acute kidney injury: Vasomotor ROJELIO. ATN likely. Renal US negative for hydro. Baseline renal function is unknown. Monitor renal function. Non-oliguric. Creatinine leveled off. Avoid nephrotoxic agents. Meds dosage based on GFR. 2. FEN: Hypokalemia, improved, monitor. Hypernatremia, improved, monitor. Monitor lytes and volume status. 3. Acute hypoxemic respiratory failure: Extubated, re-intubated 04/24. Trached 05/07. On T-piece. 4. Acute encephalopathy: MRI brain negative. Seen by Neuro. 5. UTI: Treated. 6. Hypertension. 7. DM type 2. 8. Mild rhabdomyolysis: Improved. 9. Mildly complex R renal cyst: Further testing once patient is more stable. Explained patient's niece(05/18) at the bedside about follow up evaluation. Subjective: Patient was seen and examined at the bedside. Examination: General appearance: well-developed, appears stated age, trached on T-piece HEENT: atraumatic Neck: trached Respiratory: Coarse breath sounds heard Heart: S1S2, no murmur Abdomen: soft, obese, bowel sounds heard, NT, PEG tube noted Integumentary: no obvious rash Neurologic: opens eyes Ext: no edema noted Subjective Date of service: 05/20/21 Principal diagnosis: Ac. resp failure; AMS; Hypoglycemia; ROJELIO; Hyperkalemia; DM II Objective - Vital Signs Vital signs: Vital Signs - 12hr 05/20/21 05/20/21 05/20/21 04:05 04:41 04:53 Temperature 97.5 F L Pulse Rate 89 Respiratory 19 Rate Blood Pressure 184/67 O2 Sat by Pulse 94 100 Oximetry O2 Sat by Pulse 100 Oximetry [ Assessment] 05/20/21 05/20/21 05/20/21 05:56 07:46 10:00 Temperature Pulse Rate Respiratory Rate Blood Pressure 184/67 O2 Sat by Pulse 98 100 Oximetry O2 Sat by Pulse 99 Oximetry [ Assessment] 05/20/21 11:28 Temperature 98.3 F Pulse Rate 65 Respiratory 20 Rate Blood Pressure 140/50 O2 Sat by Pulse 98 Oximetry O2 Sat by Pulse Oximetry [ Assessment] - Lab 05/20/21 05:18 05/21/21 05:19 Most recent lab results ABG pH 7.417 (7.320-7.450) 05/17/21 21:04 ABG O2 Saturation 97.0 (0-100) 05/17/21 21:04 Calcium 9.6 mg/dL (8.4-10.2) 05/20/21 05:18 Phosphorus 2.60 mg/dL (2.5-4.5) 04/22/21 08:00 Magnesium 2.10 mg/dL (1.7-2.3) 04/23/21 07:02 Urine Creatinine 104.7 mg/dL (0.1-20.0) H 05/18/21 06:45 Urine Sodium 81 mmol/L 05/18/21 06:45 Medications & Allergies - Medications Allergies/Adverse Reactions: Allergies No Known Allergies Allergy (Unverified 04/15/21 17:41) Home Medications: Home Medications Medication Instructions Recorded Confirmed Last Taken Type Betaxolol HCl [Betoptic S 0.25% 1 drop OU BID 04/16/21 04/16/21 Unknown History SUSP] Bimatoprost [Lumigan 0.01%] 1 drop OU QPM 04/16/21 04/16/21 Unknown History Brimonidine Tartrate [Brimonidine 5 ml OU BID 04/16/21 04/16/21 Unknown History Tartrate 0.2%] Furosemide [Lasix TAB] 40 mg PO QDAY 04/16/21 04/16/21 Unknown History Gabapentin [Neurontin] 300 mg PO Q8HR 04/16/21 04/16/21 Unknown History HYDROcodone/APAP 10-325 [Continental 1 each PO Q6HR PRN 04/16/21 04/16/21 Unknown History 10/325] Hydralazine HCl 50 mg PO Q4HR 04/16/21 04/16/21 Unknown History Insulin Aspart Prot/Insuln Asp 52 units SQ HS 04/16/21 04/16/21 Unknown History [Novolog Mix 70-30 Flexpen] Metoprolol [Lopressor] 25 mg PO BID 04/16/21 04/16/21 Unknown History Pravastatin [Pravachol] 20 mg PO QHS 04/16/21 04/16/21 Unknown History Promethazine [Phenergan] 25 mg PO Q6HR 04/16/21 04/16/21 Unknown History allopurinoL [Zyloprim] 150 mg PO QDAY 04/16/21 04/16/21 Unknown History Active Medications: Generic Name Dose Route Start Last Admin Trade Name Freq PRN Reason Stop Dose Admin Acetaminophen 650 mg 04/15/21 19:11 05/17/21 12:33 Acetaminophen 325 Mg Tab PO 650 mg Q6H PRN Administration Pain MILD(1-3)/Fever >100.5/SEXTON Albuterol 2.5 mg 05/09/21 13:16 05/16/21 09:40 Albuterol 2.5 Mg/3 Ml Nebu IH 2.5 mg Q6HRT PRN Administration Shortness Of Breath Amlodipine Besylate 2.5 mg 05/18/21 10:00 05/20/21 10:35 Amlodipine 5 Mg Tab PO 2.5 mg QDAY WOLFGANG Administration Lipase/Protease/Amylase 1 each 04/16/21 12:52 Lipase 10,500/Protease 25,000/Amylase 43,750 (Units) Dr Simpson FEEDTUBE PRN PRN For Clogged Feeding Tube Aspirin 81 mg 04/25/21 10:00 05/20/21 10:35 Aspirin 81 Mg Tab Chew PO 81 mg QDAY WOLFGANG Administration Bisacodyl 10 mg 04/17/21 11:01 05/03/21 09:50 Bisacodyl 10 Mg Rect Supp OH 10 mg QDAY PRN Administration Constipation Brimonidine Tartrate 1 drops 04/17/21 22:00 05/20/21 10:37 Brimonidine 0.15% Ophth Soln OU 1 drops BID WOLFGANG Administration Docusate Sodium 100 mg 04/29/21 15:00 05/20/21 10:35 Docusate Sodium 100 Mg/10 Ml Oral Liqd PO 100 mg BID WOLFGANG Administration Famotidine 20 mg 04/17/21 10:00 05/20/21 10:35 Famotidine 20 Mg Tab PO 20 mg DAILY WOLFGANG Administration Glycopyrrolate 1 mg 05/17/21 20:00 05/20/21 13:17 Glycopyrrolate 1 Mg Tab PO Not Given TID WOLFGANG Heparin Sodium (Porcine) 5,000 unit 04/15/21 22:00 05/20/21 10:36 Heparin 5,000 Unit/1 Ml Vial SUB-Q 5,000 unit Q12HR WOLFGANG Administration Hydralazine HCl 10 mg 04/16/21 18:00 05/20/21 05:56 Hydralazine 20 Mg/1 Ml Inj IV 10 mg Q4HR PRN Administration Hypertension Hydrophilic Ointment 1 applic 04/15/21 17:24 Lip Therapy Vaseline TP Q2HR PRN Dry Lips Insulin Human Isoph/Insulin Regular 25 unit 05/09/21 08:00 05/20/21 10:35 Insulin Nph/Regular 70/30 Inj SUB-Q 25 unit BIDDIAB WOLFGANG Administration Insulin Human Lispro 0 unit 04/16/21 15:00 05/20/21 12:55 Insulin Lispro 100 Unit/Ml SUB-Q 4 unit Q6HR WOLFGANG Administration Protocol Latanoprost 1 drops 04/17/21 18:00 05/19/21 18:02 Latanoprost 0.005% Ophth Soln 2.5 Ml OU 1 drops QPM WOLFGANG Administration Levothyroxine Sodium 25 mcg 04/19/21 06:00 05/20/21 05:57 Levothyroxine 25 Mcg Tab PO 25 mcg DAILY@0600 [facility] Administration Lorazepam 2 mg 05/13/21 09:30 Lorazepam 2 Mg/Ml Vial IV Q4H PRN Agitation Midodrine 5 mg 05/20/21 12:00 05/20/21 12:49 Midodrine 5 Mg Tab PO Not Given TID@0800,1200,1600 [facility] Multi-Ingred Cream/Lotion/Oil/Oint 1 applic 04/15/21 17:24 05/17/21 21:31 Mineral Oil/Petrolatum, White Ophth Oint 3.5 Gm OU 1 applic Q4HR PRN Administration Dry Eye(s) Pravastatin Sodium 20 mg 04/19/21 22:00 05/19/21 21:30 Pravastatin 20 Mg Tab PO 20 mg QHS [facility] Administration Scopolamine 1 each 04/20/21 18:00 05/20/21 10:36 Scopolamine Transdermal Patch 72 Hr TD 1 each Q3D WOLFGANG Administration Simple Syrup 15 ml 04/16/21 12:52 Simple Syrup 15 Ml FEEDTUBE PRN PRN Hypoglycemia Simple Syrup 30 ml 04/16/21 12:52 Simple Syrup 15 Ml FEEDTUBE PRN PRN Hypoglycemia Sodium Bicarbonate 325 mg 04/16/21 12:52 Sodium Bicarbonate 325 Mg Tab FEEDTUBE PRN PRN For Clogged Feeding Tube Sodium Chloride 10 ml 04/15/21 22:00 05/20/21 10:36 Sodium Chloride 0.9% 10 Ml Flush Syringe IV 10 ml BID WOLFGANG Administration Sodium Chloride 10 ml 04/15/21 19:11 05/19/21 06:38 Sodium Chloride 0.9% 10 Ml Flush Syringe IV 10 ml PRN PRN Administration LINE FLUSH Tamsulosin HCl 0.4 mg 04/25/21 14:00 05/20/21 10:35 Tamsulosin 0.4 Mg Cap PO 0.4 mg QDAY WOLFGANG Administration Timolol Maleate 1 drops 04/19/21 10:00 05/20/21 10:36 Timolol 0.5% Ophth Soln 5 Ml OU 1 drops QDAY WOLFGANG Administration
[2021-05-20] MEDS: LATANOPROST 0.005% OPHTH SOLN 2.5 ML OU SCH (17:35)
[2021-05-20] MEDS: PRAVASTATIN 20 MG TAB PO SCH (21:17)
[2021-05-21] MEDS: INSULIN LISPRO 100 UNIT/ML SUB-Q SCH ×4 (06:03→18:51)
[2021-05-21 06:06] LABS: Calcium 9.9 mg/dL (8.4-10.2)
[2021-05-21] MEDS: LEVOTHYROXINE 25 MCG TAB PO SCH (06:13)
[2021-05-21] MEDS: MIDODRINE 5 MG TAB PO SCH ×3 (09:53→18:41)
[2021-05-21] MEDS: TAMSULOSIN 0.4 MG CAP PO SCH (09:53)
[2021-05-21] MEDS: GLYCOPYRROLATE 1 MG TAB PO SCH ×3 (09:54→21:33)
[2021-05-21] MEDS: amLODIPine 5 MG TAB PO SCH (09:54)
[2021-05-21] MEDS: FAMOTIDINE 20 MG TAB PO SCH (09:54)
[2021-05-21] MEDS: HEPARIN 5,000 UNIT/1 ML VIAL SUB-Q SCH ×2 (10:22→21:34)
[2021-05-21] MEDS: BRIMONIDINE 0.15% OPHTH SOLN OU SCH ×2 (10:22→21:35)
[2021-05-21] MEDS: TIMOLOL 0.5% OPHTH SOLN 5 ML OU SCH (10:22)
[2021-05-21] MEDS: DOCUSATE SODIUM 100 MG/10 ML ORAL LIQD PO SCH ×2 (10:33→21:34)
[2021-05-21] MEDS: ASPIRIN 81 MG TAB CHEW PO SCH (10:33)
[2021-05-21] MEDS: INSULIN NPH/REGULAR 70/30 INJ SUB-Q SCH ×2 (10:33→18:51)
--- NOTE | 2021-05-21 11:18 | Progress Note ---
Assessment and Plan Assessment and plan: This is a 80-year-old female with HTN, DM, MT, breast CA s/p double mastectomy, TIA who presented with hypoglycemia, AMS who was admitted with SIRS, symptomatic bradycardia, acute metabolic encephalopathy, acute hypoxic respiratory failure, elevated TSH, hyperglycemia, hyponatremia, hypokalemia, ROJELIO and rhabdomyolysis Acute metabolic encephalopathy-persist Acute hypoxic respiratory failure (extubated 04/20)- Re-intubated secondary to Stridor and paradoxical breathing - s/p trach and PEG First-degree heart block Resolved ileus versus mechanical obstruction Acute kidney injury with vasomotor nephropathy UTI, Pseudomonas/ Earline Elevated TSH Mild rhabdomyolysis Hypertension Diabetes mellitus with hyperglycemia on admission CAD Hypothyroidism Chronic illness debilitymyopathy Obesity Debility Urinary retention -CCM, nephrology, neurology, cardiology consulted, patient recommendations -S/p D10 and D5W gtt, on TF -S/p IV calcium gluconate, regular insulin, D50 -S/p transcutaneous pacing, intermittent demand pacer in place -Renal ultrasound findings consistent with acute on chronic kidney disease, mildly complex right renal cyst -Blood pressure monitoring per protocol -Accu-Cheks every 6, SSI, long acting insulin -IV hydralazine as needed -midodrine for hypotension, however will dial back since patient's blood pressure seems to be elevated. Will attempt to slowly taper to see if patient actually needs midodrine at this point. -04/25 EEG is mildly abnormal with mild slowing noted throughout the recording, suggestive of mild cortical dysfunction and/or drug effect -04/20 EEG shows mildly abnormal record due to diffuse background slowing noted throughout the recording, intermittent motion artifact, patient intubated and sedated at time of study, no sign of seizures as well epilepticus noted, possible toxic metabolic encephalopathy, drug effect, possible postictal state cannot be totally excluded. -Avoid ACEi/ARB in setting of ROJELIO -Avoid AV arron blocking agents -Avoid nephrotoxic agents and renally dose medications -BB, hydralazine, amlodipine -TSH 14.1, T4 4.1, T3 1.1-started on levothyroxine -As needed racemic epinephrine -S/p steroids -s/p Antibiotic therapy -Trend CBC, BMP as needed PT/OT/ST to evaluate the patient Bladder scans as needed Repeat chest x-ray showing atelectasis, doubt its pneumonia DVT/GI prophylaxis: Heparin subcu, PPI, SCDs to bilateral lower extremities while in bed Disposition: Placement is an issue at this time, PT notes state patient needs LTAC but has been denied. Working with wrapper caser and family to arrange the best options for the patient. Patient's nephew may be interested in comfort care/hospice for the patient. History Interval history: 04/16: Neurology consulted, COVID-19 PCR negative, D10 drip decreased and eventually discontinued by [facility] and started on D5W for 1 L. Hydralazine as needed. Patient had hyper kalemia today and was treated with D50, insulin and Kayexalate. This time examination patient is on assist control tidal volume 450, rate of 16, PEEP of 6 and 25% FiO2. 04/17: Patient started on low-dose beta-angel per cardiology, CPAP trial again per [facility], BUN/creatinine holding steady and hypochloremia/hyponatremia slightly improved and hypokalemia has resolved. This morning a KUB was obtained which was concerning for ileus versus mechanical obstruction and surgery was consulted. Patient was made n.p.o. and NG tube placed to wall suction. Patient was given suppository. Per RN patient did not have a BM even though she was given Kayexalate yesterday. Will obtain a KUB in the a.m. Neurology was consulted yesterday and will await further recommendations. Nephew updated at bedside today, Carlos Romero. 04/18: Neurology has ordered EEG/MRI B, [facility] continues to wean MV. Persistent low grade temperature so we will obtain BCx2/UA. Patient has improving leukocytosis, hyponatremia, renal function studies and hypochloremia. She has hypokalemia today which is being repleted. Surgery has signed off today and has okayed resumption of TF. [facility] will trial CPAP for longer today and plans to attempt extubation in AM. Family has requested transfer to [facility] and Dr. Gordon will attempt to contact transfer center. I updated her nephew, Carlos Chanceruff over the phone today abouyt current events and update on transfer ([facility] will conduct a utilization review) 04/19: This morning patient is on CPAP trial at the time of examination, noted to be hypertensive and metoprolol increased to home dose, started on synthroid by [facility], lantus started re hyperglycemia, MRI completed with no acute findings. Severe hypokalemia (repleted and Mg pending). [facility] will contact CPAP trial again today with possible trial extubation tomorrow. 04/20: Patient's leukocytosis and kidney function tests continue to improve. Patient is hypertensive overnight we will restart home hydralazine. [facility] plans to extubate patient today. Family is attempting to transfer to another facility. EEG pending, RT will atmept to contact residential air sealing technician. Urine culture grew gram negative rods. Increase in lantus 04/21: Increase in Lantus, repleted phos. Patient has started this afternoon and was given racemic epinephrine and started on steroids. Patient will have BiPAP as needed. We will recheck BMP in the a.m. renal function studies continues to decrease. Patient has been hypertensive on evaluation regimen has been changed. 04/22: Lantus increased for hyperglycemia and add amlodipine for better BP control. Patient is on steroids. OT suctioned by RN with catheter in oral care kit and received copious amounts of secretions. Cr continues to decrease. Culture grew Pseudomonas and was changed in accordance to sensitivity. Kerr removed today after clearance from nephrology. 04/23: MRI of the brain was done and unremarkable. Will obtain reconsult to nephrology for further assistance as patient remains in profound encephalopathy despite improvement of blood sugar. Will repeat chest x-ray as patient does have significant congestion physical exam. Tube feeds still ongoing. Continue aspiration precautions. Continue antibiotics when completed for Pseudomonas management 04/24: Neurology input noted, patient unfortunately with no improvement mental status milton, continues with congestion, will defer with Development Coordinator for lasix in the setting of renal failure. will give kayexlate for hyperkalemia, still moans and groans, mittens in place. 04/25: Patient currently intubated, on restraints for safety, Profund encephalopathy persist, although awake she is not following any commands, Call placed to [facility] to see if they will accept transfer for ENT evaluation, while CT neck was negative, it was degraded by motion and unable to determent why patient had this stridor, Racemic Epinephrine was given, [facility] is on ICU saturation, but will call back with an ENT to discuss case. Renal function mildly worse, continue to monitor. Per cardiology, no further arrhythmias noted since admission. Given short duration of atrial fibrillation, along with pt's age, renal fxn, and other co- morbidities,...will resume additional medical therapies for underlying severe multi-vessel CAD (bASA & Plavix). Pt has previously declined intervention of known lesions as per her Primary Screen Printing Stencil Preparer. 04/26: Now with febrile illness, ?developing infection, start on empiric abx, check lactate level, blood cultures, continue management per Manager Of Compliance, Monitor leukocytosis, agree with Trach, family updated about denials in transfer request from outside hospitals. 04/27: WBC improving some, still with fever despite antibotics, ID consulted. CXR clear, continue current management, Trach will be planned if ok with family. Blood sugar remains elevated, will adjust insulin LANTUS to 40 units. Patient had previously completed Cefepime. Mental status remains unchanged, still moves upper ext. continue restraints 04/28: Continue supportive care. No new fever noted. Critical care physician will determine if patient should be have a trial of extubation again or if we should proceed straight to trach. Again continue to monitor mental status for complete improvement. 04/29: Per Manager Of Compliance discussion with family, will proceed to Tracheostomy, Patients mental status still fluctuating, Continue current management. Surgeon consulted. 04/30: General surgery consulted for trach, continue to trend CBC and BMP. Kidney function slightly worsened today. Increase in Lantus. Tmax 100.2, per ID will consider imaging if leukocytosis remains elevated with fevers. Plavix held for possible tracheostomy next week. 05/01: Patient fever curve is trending down with improving leukocytosis. Patient renal function worsened today. She remains hyperglycemic and her Lantus was increased to her home dose of Novolin 70/30. Patient was rate controlled yesterday due to T-max of 101. She remains on CMV tidal volume 450, rate of 10, PEEP of 6 and 30% FiO2. We will increase the water flushes given slight hypernatremia. Dr. Andrea updated nephew (Carlos) at bedside. CPAP trails. 05/02: Patient's hypernatremia and hyperchloremia slightly worsened and femur fractures were increased. Kidney functions remain the same however BUN is in the 100s. Nephrology is following. Kerr catheter was removed. Awaiting trach placement with possibility on Friday. 05/03: Patient grew Earline in her urine culture however per ID and the Kerr was already exchanged. Patient is on cefepime and Flagyl. Plavix still on hold awaiting trach. CCM started the patient on half-normal saline at 75 mL/h for 2 L related to azatoma and hypernatremia. Patient mental status continues to wax and wane. Creatinine is 3.1 today from 3.4 yesterday. Patient had a bowel movement today. Patient remains hyperglycemic and Lantus was changed from a.m. to p.m.. 05/04: Patient's renal function is improving, surgery obtain consent for trach/PEG scheduled for 05/07, antibiotics to end tomorrow. We will obtain BMP in the a.m. Lantus dosage change from AC to at bedtime in hopes of better glycemic control. 05/05: Patient Lantus dose is changed to twice daily in hopes of better glycemic control. Awaiting surgical procedure hopefully on Friday. Patient's BUN/creatinine improved and hypernatremia has resolved. 05/06: Patient has slight hypernatremia and hyperchloremia and improvement to BUN/creatinine. Better glycemic control. Awaiting trach on Friday. NGT was displaced but now replaced and TF resumed. 05/07 This is a 80-year-old female with HTN, DM, MT, breast CA s/p double mastectomy, TIA who presented with hypoglycemia, AMS who was admitted with SIRS, symptomatic bradycardia, acute metabolic encephalopathy, acute hypoxic respiratory failure, elevated TSH, hyperglycemia, hyponatremia, hypokalemia, ROJELIO and rhabdomyolysis. She is for Trach and PEG today. 05/08: s/p trach and PEG placement yesterday. cont to monitor, wean off from vent as tolertaed 05/09: Patient started on tube feeding and tolerating well. Currently on CPAP setting with newly placed trach. Discussed with case management and patient would need placement. Continue supportive care and follow clinically. 05/10: Continue supportive care, patient is tolerating tube feeding diet. Remains on CPAP with trach. Pending LTAC placement. 05/11: Continue supportive care, patient is tolerating tube feeding diet. Re ronal on CPAP with trach. Plan to wean off from Vent as tolerates and to place on t-piece. 05/12; Patient placed on t-piece today, tolerating TF, cont to monitor clinically. follow CBC/BMP 05/13: Remains on t-piece, plan to wean off to wall T-piece. If unable to wean off from vent then patient will need criteria for LTAC upon her insurance requirement. If she tolerates weaning trial and able to maintain T-piece then she will be discharged back to skilled nursing. Ordered for a.m. labs. Continue to follow clinically with supportive care. 05/14: Pending placement. Patient back on Mechanical ventilation today with trach tube. Hemoglobin 7.0. Will transfuse 1 unit packed RBC. Continue to monitor clinically. 05/15: Pending placement, [facility] continues to trial patient on trach collar for as long as tolerated. Patient is H/H improved to 8/24.6 after 1 unit PRBC. Renal function continues to fluctuate and is currently at CR 2/BUN 42. Patient is slightly hyperkalemic today at 5.3 and received 30 g of Kionex. We will obtain a.m. BMP and continue to trend CBC. Patient is hypertensive and hydralazine dose has been increased. 05/16: Patient noted to have hyperkalemia again today and was treated. Patient continued T-piece on 20% FiO2 for over 24 hours. This afternoon patient was not ed to be off of trach collar and SPO2 was still in the mid 90s. Trach collar was replaced. We will remove Kerr catheter and BladderScan the patient every 4 hours. 05/17: Patient has been started on midodrine and given approximately 750 ML IV fluid bolus in response to hypotension. Will receive normal saline at 75 for another 2 L. Has a standing order for bladder scans every 4 and straight cath if needed. Patient will be transferred to telemetry today. 05/18: Patient is on the floor, patient is shaking her head to answering questions and moving her legs. Patient is lethargic at times. 05/19: Patient seen on floor, patient is awake, has some secretions, spoke with nurse to suction. Patient is shaking her head yes and no to my questions. 05/20: Patient seen and examined, case management and family at the bedside. No acute distress overnight, there was some secretions, and asked the nurse to suction. Repeat chest x-ray does not show any new abnormalities 05/21: pt seen with bedside, awake. No respiratory distress, spoke with bedside nurse, patient was suction this morning. On 5 L via trach. Hospitalist Physical - Physical exam Narrative exam: General appearance: no acute distress, well-nourished EENT: PERRL, EOM intact, hearing intact, dry oral mucosa Neck: Tracheostomy with trach tube Respiratory: 5 L of oxygen with tracheostomy tube Cardiovascular: Regular rate/rhythm, Normal S1 & S2. No gallop, rub Extremities: Hands in mittens, no ischemia, No edema, normal temperature, normal color, Full ROM Abdominal: PEG tube, soft, no tenderness, non-distended, normal bowel sounds Integumentary: Present: clear, warm, dry no wounds, no erythema noted Neurologic: CNII-XII intact, patient is minimally moving her legs and arms - Constitutional Vitals: Temp Pulse Resp BP Pulse Ox 98.6 F 83 20 151/57 98 05/21/21 07:53 05/21/21 07:53 05/21/21 07:53 05/21/21 09:54 05/21/21 08:39 HEART Score - HEART Score Troponin: Troponin T 0.065 ng/mL (0.00-0.029) H 04/20/21 03:32 Results - Labs CBC & Chem 7: 05/20/21 05:18 05/21/21 05:19 Labs: Laboratory Last Values WBC 7.6 K/mm3 (4.5-11.0) 05/20/21 05:18 RBC 2.59 M/mm3 (3.65-5.03) L 05/20/21 05:18 Hgb 8.0 gm/dl (10.1-14.3) L 05/20/21 05:18 Hct 24.6 % (30.3-42.9) L 05/20/21 05:18 MCV 95 fl (79-97) 05/20/21 05:18 MCH 31 pg (28-32) 05/20/21 05:18 MCHC 33 % (30-34) 05/20/21 05:18 RDW 16.1 % (13.2-15.2) H 05/20/21 05:18 Plt Count 253 K/mm3 (140-440) 05/20/21 05:18 Lymph % (Auto) 21.1 % (13.4-35.0) 05/15/21 05:51 Terry % (Auto) 15.3 % (0.0-7.3) H 05/15/21 05:51 Eos % (Auto) 2.9 % (0.0-4.3) 05/15/21 05:51 Baso % (Auto) 0.4 % (0.0-1.8) 05/15/21 05:51 Lymph # (Auto) 1.5 K/mm3 (1.2-5.4) 05/15/21 05:51 Terry # (Auto) 1.1 K/mm3 (0.0-0.8) H 05/15/21 05:51 Eos # (Auto) 0.2 K/mm3 (0.0-0.4) 05/15/21 05:51 Baso # (Auto) 0.0 K/mm3 (0.0-0.1) 05/15/21 05:51 Add Manual Diff Complete 05/01/21 07:11 Total Counted 100 05/01/21 07:11 Seg Neutrophils % 60.3 % (40.0-70.0) 05/15/21 05:51 Seg Neuts % (Manual) 80.0 % (40.0-70.0) H 05/01/21 07:11 Band Neutrophils % 7.0 % 05/01/21 07:11 Lymphocytes % (Manual) 5.0 % (13.4-35.0) L 05/01/21 07:11 Monocytes % (Manual) 6.0 % (0.0-7.3) 05/01/21 07:11 Eosinophils % (Manual) 1.0 % (0.0-4.3) 05/01/21 07:11 Metamyelocytes % 1.0 % 05/01/21 07:11 Nucleated RBC % Not Reportable 05/01/21 07:11 Seg Neutrophils # 4.3 K/mm3 (1.8-7.7) 05/15/21 05:51 Seg Neutrophils # Man 9.8 K/mm3 (1.8-7.7) H 05/01/21 07:11 Band Neutrophils # 0.9 K/mm3 05/01/21 07:11 Lymphocytes # (Manual) 0.6 K/mm3 (1.2-5.4) L 05/01/21 07:11 Abs React Lymphs (Man) 0.0 K/mm3 05/01/21 07:11 Monocytes # (Manual) 0.7 K/mm3 (0.0-0.8) 05/01/21 07:11 Eosinophils # (Manual) 0.1 K/mm3 (0.0-0.4) 05/01/21 07:11 Basophils # (Manual) 0.0 K/mm3 (0.0-0.1) 05/01/21 07:11 Metamyelocytes # 0.1 K/mm3 05/01/21 07:11 Myelocytes # 0.0 K/mm3 05/01/21 07:11 Promyelocytes # 0.0 K/mm3 05/01/21 07:11 Blast Cells # 0.0 K/mm3 05/01/21 07:11 WBC Morphology Not Reportable 05/01/21 07:11 Hypersegmented Neuts Not Reportable 05/01/21 07:11 Hyposegmented Neuts Not Reportable 05/01/21 07:11 Hypogranular Neuts Not Reportable 05/01/21 07:11 Smudge Cells Not Reportable 05/01/21 07:11 Toxic Granulation Not Reportable 05/01/21 07:11 Toxic Vacuolation Not Reportable 05/01/21 07:11 Dohle Bodies Not Reportable 05/01/21 07:11 Pelger-Huet Anomaly Not Reportable 05/01/21 07:11 Peterson Rods Not Reportable 05/01/21 07:11 Platelet Estimate Consistent w auto 05/01/21 07:11 Clumped Platelets Not Reportable 05/01/21 07:11 Plt Clumps, EDTA Not Reportable 05/01/21 07:11 Large Platelets Not Reportable 05/01/21 07:11 Giant Platelets Not Reportable 05/01/21 07:11 Platelet Satelliting Not Reportable 05/01/21 07:11 Plt Morphology Comment Not Reportable 05/01/21 07:11 RBC Morphology Normal 05/01/21 07:11 Dimorphic RBCs Not Reportable 05/01/21 07:11 Polychromasia Not Reportable 05/01/21 07:11 Hypochromasia Not Reportable 05/01/21 07:11 Poikilocytosis Not Reportable 05/01/21 07:11 Anisocytosis Not Reportable 05/01/21 07:11 Microcytosis Not Reportable 05/01/21 07:11 Macrocytosis Not Reportable 05/01/21 07:11 Spherocytes Not Reportable 05/01/21 07:11 Pappenheimer Bodies Not Reportable 05/01/21 07:11 Sickle Cells Not Reportable 05/01/21 07:11 Target Cells Not Reportable 05/01/21 07:11 Tear Drop Cells Not Reportable 05/01/21 07:11 Ovalocytes Not Reportable 05/01/21 07:11 Helmet Cells Not Reportable 05/01/21 07:11 [employer] Bodies Not Reportable 05/01/21 07:11 [place] Rings Not Reportable 05/01/21 07:11 Oxbow Cells Not Reportable 05/01/21 07:11 Bite Cells Not Reportable 05/01/21 07:11 Crenated Cell Not Reportable 05/01/21 07:11 Elliptocytes Not Reportable 05/01/21 07:11 Acanthocytes (Spur) Not Reportable 05/01/21 07:11 Rouleaux Not Reportable 05/01/21 07:11 Hemoglobin C Crystals Not Reportable 05/01/21 07:11 Schistocytes Not Reportable 05/01/21 07:11 Malaria parasites Not Reportable 05/01/21 07:11 James Bodies Not Reportable 05/01/21 07:11 Hem Pathologist Commnt No 05/01/21 07:11 PT 14.8 Sec. (12.2-14.9) 05/07/21 08:20 INR 1.11 (0.87-1.13) 05/07/21 08:20 APTT 31.8 Sec. (24.2-36.6) 04/15/21 17:20 ABG pH 7.417 (7.320-7.450) 05/17/21 21:04 POC ABG pCO2 41.2 mmHg (32.0-48.0) 05/17/21 21:04 POC ABG pO2 88.3 mmHg (83-108) 05/17/21 21:04 POC ABG HCO3 25.9 05/17/21 21:04 ABG O2 Saturation 97.0 (0-100) 05/17/21 21:04 POC ABG Base Excess 1.3 05/17/21 21:04 ABG Hemoglobin 9.2 (12.0-17.5) L 05/17/21 21:04 ABG Oxyhemoglobin 96.1 (94-98) 05/17/21 21:04 ABG Methemoglobin 0.3 (0.0-1.5) 05/17/21 21:04 ABG Sodium 136.3 mmol/L (136.0-145.0) 05/17/21 21:04 ABG Potassium 3.7 mmol/L (3.40-4.50) 05/17/21 21:04 ABG Chloride 104.0 mmol/L (98-107) 05/17/21 21:04 ABG Glucose 160 mg/dL (65-95) H 05/17/21 21:04 Carboxyhemoglobin 0.6 (0.5-1.5) 05/17/21 21:04 FiO2 % 28.0 05/17/21 21:04 Sodium 134 mmol/L (137-145) L 05/21/21 05:19 Potassium 4.2 mmol/L (3.6-5.0) 05/21/21 05:19 Chloride 98.5 mmol/L (98-107) 05/21/21 05:19 Carbon Dioxide 24 mmol/L (22-30) 05/21/21 05:19 Anion Gap 16 mmol/L 05/21/21 05:19 BUN 34 mg/dL (7-17) H 05/21/21 05:19 Creatinine 1.7 mg/dL (0.6-1.2) H 05/21/21 05:19 Estimated GFR 35 ml/min 05/21/21 05:19 BUN/Creatinine Ratio 20 % 05/21/21 05:19 Glucose 224 mg/dL (65-100) H 05/21/21 05:19 POC Glucose 224 mg/dL (70-105) H 05/21/21 05:27 Lactic Acid 1.10 mmol/L (0.7-2.0) 04/26/21 09:30 Calcium 9.9 mg/dL (8.4-10.2) 05/21/21 05:19 Phosphorus 2.60 mg/dL (2.5-4.5) 04/22/21 08:00 Magnesium 2.10 mg/dL (1.7-2.3) 04/23/21 07:02 Total Bilirubin 0.30 mg/dL (0.1-1.2) 04/28/21 04:13 Direct Bilirubin < 0.2 mg/dL (0-0.2) 04/28/21 04:13 Indirect Bilirubin 0.1 mg/dL 04/28/21 04:13 AST 61 units/L (5-40) H 04/28/21 04:13 ALT 64 units/L (7-56) H 04/28/21 04:13 Alkaline Phosphatase 95 units/L (35-129) 04/28/21 04:13 Ammonia 46.0 umol/L (25-60) 04/15/21 17:20 Total Creatine Kinase 63 units/L (30-135) 05/17/21 07:43 CK-MB (CK-2) 9.1 ng/mL (0.0-4.0) H 04/17/21 15:35 CK-MB (CK-2) Rel Index 1.4 (0-4) 04/17/21 15:35 Troponin T 0.065 ng/mL (0.00-0.029) H 04/20/21 03:32 NT-Pro-B Natriuret Pep 697.9 pg/mL (0-900) 04/15/21 17:20 Total Protein 6.2 g/dL (6.3-8.2) L 04/28/21 04:13 Albumin 2.6 g/dL (3.9-5) L 04/28/21 04:13 Albumin/Globulin Ratio 0.7 % 04/28/21 04:13 Triglycerides 103 mg/dL (2-149) 04/17/21 05:04 Cholesterol 122 mg/dL (50-199) 04/17/21 05:04 LDL Cholesterol Direct 55 mg/dL (50-130) 04/17/21 05:04 HDL Cholesterol 61 mg/dL (40-59) H 04/17/21 05:04 Cholesterol/HDL Ratio 2.00 % 04/17/21 05:04 Procalcitonin 0.20 ng/mL (<0.15) 04/16/21 19:01 TSH 14.190 mlU/mL (0.270-4.200) H 04/15/21 17:20 Thyroxine (T4) 4.1 ug/dL (4.0-12.0) 04/16/21 19:01 Free T3 Index 1.1 pg/mL (2.3-4.2) L 04/16/21 19:01 Arterial Blood Glucose 160 mg/dL (65-95) H 05/17/21 21:04 Arterial Blood Ionized Calcium 4.9 mg/dL (4.6-5.3) 05/17/21 21:04 Urine Color Yellow (Yellow) 04/30/21 17:45 Urine Turbidity Cloudy (Clear) 04/30/21 17:45 Urine pH 5.0 (5.0-7.0) 04/30/21 17:45 Ur Specific [place] 1.016 (1.003-1.030) 04/30/21 17:45 Urine Protein 100 mg/dl mg/dL (Negative) 04/30/21 17:45 Urine Glucose (UA) Neg mg/dL (Negative) 04/30/21 17:45 Urine Ketones Neg mg/dL (Negative) 04/30/21 17:45 Urine Blood Mod (Negative) 04/30/21 17:45 Urine Nitrite Neg (Negative) 04/30/21 17:45 Urine Bilirubin Neg (Negative) 04/30/21 17:45 Urine Urobilinogen < 2.0 mg/dL (<2.0) 04/30/21 17:45 Ur Leukocyte Esterase Mod (Negative) 04/30/21 17:45 Urine WBC (Auto) 48.0 /HPF (0.0-6.0) H 04/30/21 17:45 Urine RBC (Auto) 103.0 /HPF (0.0-6.0) 04/30/21 17:45 U Epithel Cells (Auto) < 1.0 /HPF (0-13.0) 04/16/21 00:09 Urine Bacteria (Auto) 1+ /HPF (Negative) 04/16/21 00:09 Urine Mucus Few /HPF 04/30/21 17:45 Urine Yeast (Budding) 3+ /HPF 04/30/21 17:45 Urine Creatinine 104.7 mg/dL (0.1-20.0) H 05/18/21 06:45 Urine Sodium 81 mmol/L 05/18/21 06:45 Random Vancomycin 15.5 ug/mL (0-40.0) 04/27/21 07:52 Salicylates 4.1 mg/dL (2.8-20.0) 04/15/21 17:20 Acetaminophen 5.0 ug/mL (10.0-30.0) L 04/15/21 17:20 Plasma/Serum Alcohol 0.02 % (0-0.07) 04/15/21 17:20 Coronavirus (PCR) Negative (Negative) 05/19/21 Unknown Blood Type B POSITIVE 05/14/21 19:00 Antibody Screen Negative 05/14/21 19:00 Crossmatch See Detail 05/14/21 19:00 Kerr/IV: Voiding Method Indwelling Catheter Active Medications - Current Medications Current Medications: Generic Name Dose Route Start Last Admin Trade Name Freq PRN Reason Stop Dose Admin Acetaminophen 650 mg 04/15/21 19:11 05/17/21 12:33 Acetaminophen 325 Mg Tab PO 650 mg Q6H PRN Administration Pain MILD(1-3)/Fever >100.5/SEXTON Albuterol 2.5 mg 05/09/21 13:16 05/16/21 09:40 Albuterol 2.5 Mg/3 Ml Nebu IH 2.5 mg Q6HRT PRN Administration Shortness Of Breath Amlodipine Besylate 2.5 mg 05/18/21 10:00 05/21/21 09:54 Amlodipine 5 Mg Tab PO 2.5 mg QDAY WOLFGANG Administration Lipase/Protease/Amylase 1 each 04/16/21 12:52 Lipase 10,500/Protease 25,000/Amylase 43,750 (Units) Dr Simpson FEEDTUBE PRN PRN For Clogged Feeding Tube Aspirin 81 mg 04/25/21 10:00 05/21/21 10:33 Aspirin 81 Mg Tab Chew PO 81 mg QDAY WOLFGANG Administration Bisacodyl 10 mg 04/17/21 11:01 05/03/21 09:50 Bisacodyl 10 Mg Rect Supp [place] 10 mg QDAY PRN Administration Constipation Brimonidine Tartrate 1 drops 04/17/21 22:00 05/21/21 10:22 Brimonidine 0.15% Ophth Soln OU 1 drops BID [facility] Administration Docusate Sodium 100 mg 04/29/21 15:00 05/21/21 10:33 Docusate Sodium 100 Mg/10 Ml Oral Liqd PO Not Given BID [facility] Famotidine 20 mg 04/17/21 10:00 05/21/21 09:54 Famotidine 20 Mg Tab PO 20 mg DAILY [facility] Administration Glycopyrrolate 1 mg 05/17/21 20:00 05/21/21 09:54 Glycopyrrolate 1 Mg Tab PO 1 mg TID [facility] Administration Heparin Sodium (Porcine) 5,000 unit 04/15/21 22:00 05/21/21 10:22 Heparin 5,000 Unit/1 Ml Vial SUB-Q 5,000 unit Q12HR [facility] Administration Hydralazine HCl 10 mg 04/16/21 18:00 05/20/21 23:43 Hydralazine 20 Mg/1 Ml Inj IV 10 mg Q4HR PRN Administration Hypertension Hydrophilic Ointment 1 applic 04/15/21 17:24 Lip Therapy Vaseline TP Q2HR PRN Dry Lips Insulin Human Isoph/Insulin Regular 25 unit 05/09/21 08:00 05/21/21 10:33 Insulin Nph/Regular 70/30 Inj SUB-Q 25 unit BIDDIAB [facility] Administration Insulin Human Lispro 0 unit 04/16/21 15:00 05/21/21 06:03 Insulin Lispro 100 Unit/Ml SUB-Q 4 unit Q6HR [facility] Administration Protocol Latanoprost 1 drops 04/17/21 18:00 05/20/21 17:35 Latanoprost 0.005% Ophth Soln 2.5 Ml OU 1 drops QPM [facility] Administration Levothyroxine Sodium 25 mcg 04/19/21 06:00 05/21/21 06:13 Levothyroxine 25 Mcg Tab PO 25 mcg DAILY@0600 [facility] Administration Lorazepam 2 mg 05/13/21 09:30 Lorazepam 2 Mg/Ml Vial IV Q4H PRN Agitation Midodrine 5 mg 05/20/21 12:00 05/21/21 09:53 Midodrine 5 Mg Tab PO Not Given TID@0800,1200,1600 [facility] Multi-Ingred Cream/Lotion/Oil/Oint 1 applic 04/15/21 17:24 05/17/21 21:31 Mineral Oil/Petrolatum, White Ophth Oint 3.5 Gm OU 1 applic Q4HR PRN Administration Dry Eye(s) Pravastatin Sodium 20 mg 04/19/21 22:00 05/20/21 21:17 Pravastatin 20 Mg Tab PO 20 mg QHS [facility] Administration Scopolamine 1 each 04/20/21 18:00 05/20/21 10:36 Scopolamine Transdermal Patch 72 Hr TD 1 each Q3D [facility] Administration Simple Syrup 15 ml 04/16/21 12:52 Simple Syrup 15 Ml FEEDTUBE PRN PRN Hypoglycemia Simple Syrup 30 ml 04/16/21 12:52 Simple Syrup 15 Ml FEEDTUBE PRN PRN Hypoglycemia Sodium Bicarbonate 325 mg 04/16/21 12:52 Sodium Bicarbonate 325 Mg Tab FEEDTUBE PRN PRN For Clogged Feeding Tube Sodium Chloride 10 ml 04/15/21 22:00 05/21/21 10:20 Sodium Chloride 0.9% 10 Ml Flush Syringe IV 10 ml BID [facility] Administration Sodium Chloride 10 ml 04/15/21 19:11 05/19/21 06:38 Sodium Chloride 0.9% 10 Ml Flush Syringe IV 10 ml PRN PRN Administration LINE FLUSH Tamsulosin HCl 0.4 mg 04/25/21 14:00 05/21/21 09:53 Tamsulosin 0.4 Mg Cap PO 0.4 mg QDAY [facility] Administration Timolol Maleate 1 drops 04/19/21 10:00 05/21/21 10:22 Timolol 0.5% Ophth Soln 5 Ml OU 1 drops QDAY [facility] Administration Nutrition/Malnutrition Assess - Dietary Evaluation Nutrition/Malnutrition Findings: Nutrition Notes Start: 04/16/21 12:31 Freq: Status: Active Protocol: Document 05/18/21 11:58 CW (Rec: 05/18/21 12:05 CW [id number]) Nutrition Notes Initial or Follow up Reassessment Current Diagnosis Acute Kidney Injury,Coronary Artery Disease,Diabetes, Hypertension Other Pertinent Diagnosis Ileus, UTI, acute metabolic encephalopathy Current Diet TF-Nepro at 35 ml/hr Labs/Tests BUN 42 Cr 2.1 BG 154 Pertinent Medications Humulin Colace NS at 75 ml/hr + 1L Height 5 ft 6 in Weight 94.6 kg Hext Body Weight (kg) 59.09 BMI 33.6 Weight Status Obese Subjective/Other Information FU for TF tolerance. TF changed to Nepro. TF running Nepro at 40 ml/hr. Error in order corrected to reflect accurate rate of 35 ml/hr. No reports of TF intolerance. Percent of energy/protein needs met: 100%/100% (Nepro at 40ml/hr) Burn Absent Trauma Absent Difficulty In Swallowing Current % PO Negligible Minimum of two criteria No physical signs of malnutrition #1 Nutrition Diagnosis Inadequate oral intake Diagnosis Progress(for reassessment Continues documentation) Is patient on ventilator? No Is Patient Ambulatory and/or Out of Bed No REE-([facility]-confined to bed) 1714.032 Kcal/Kg value to use for calculation 15 Approximate Energy Requirements Using 1419 kcal/Kg Calculation Used for Recommendations Kcal/kg Additional Notes Pro needs 1-1.2g/kg AdjBW: 76kg (76-91g) Fluid needs 1ml/kcal Nutrition Intervention Change Diet Order: Continue Nepro Nutrition Support: Nepro 1.8 at 35 ml/hr Flush 150 ml q4h Kcal 1,512 Protein (gm) 68 Fluid (mL) 611 Goal #1 Start and tolerate new TF Goal #2 Meet at lest 75% of kcal adn protein needs via TF Anticipated Discharge Needs: Continuous TF Follow-Up By: 05/22/21 Additional Comments F/U for TF tolerance
--- NOTE | 2021-05-21 13:53 | Progress Note ---
Assessment and Plan This is a 80-year-old female with hypertension, diabetes mellitus, NH, breast cancer s/p double mastectomy, and a TIA who presented with hypoglycemia and altered mental status on 04/15 via EMS. Per EMS patient was unresponsive on their arrival and her blood glucose was 38 and she received 1 amp of dextrose patient continued to be unresponsive and only moaned with her eyes deviating to the left. Work-up in the emergency department revealed SIRS, symptomatic bradycardia, acute metabolic encephalopathy, acute hypoxic respiratory failure, elevated TSH, hyperglycemia, hyponatremia, hyperkalemia, acute kidney injury with ATN, and rhabdomyolysis. Patient transfered back to telemetry. Patient sleeping. Not responding to verbal stimuli. Patient S/P tracheostomy. Resting on T tube. FIO2 28%. O2 saturation 99%. Patient afebrile. No lekocytosis. Blood pressure 122/54. Chest xray done 05/19/21 reported Stable bibasilar pulmonary opacities, most likely reflects atelectasis/pneumonia, rather than pulmonary edema. Patient albuterol aerosol treatments, S/C Heparin and famotidine. - Patient Problems (1) Acute hypoxemic respiratory failure Current Visit: Yes Status: Acute Plan to address problem: Patient S/P tracheostomy, On T tube, FIO2 28% Albuterol aerosol treatments S/C Heparin Famotidine. (2) Acute kidney injury (ROJELIO) with acute tubular necrosis (ATN) Current Visit: Yes Status: Acute Plan to address problem: Management as per nephrology. (3) Acute metabolic encephalopathy due to hypoglycemia Current Visit: Yes Status: Acute Plan to address problem: Improved. Management as per primary care. (4) Ileus Current Visit: Yes Status: Acute Plan to address problem: Management as per primary care. (5) Non-STEMI (non-ST elevated myocardial infarction) Current Visit: Yes Status: Acute Plan to address problem: Management as per cardiology. (6) Status epilepticus Current Visit: Yes Status: Acute Plan to address problem: Management as per neurology. (7) Diabetes mellitus Current Visit: Yes Status: Chronic Plan to address problem: Management as per primary team. (8) Hypothyroidism Current Visit: Yes Status: Chronic Plan to address problem: Management as per primary care. Subjective Date of service: 05/21/21 Principal diagnosis: Ac. resp failure; AMS; Hypoglycemia; ROJELIO; Hyperkalemia; DM II Interval history: This is a 80-year-old female with hypertension, diabetes mellitus, NH, breast cancer s/p double mastectomy, and a TIA who presented with hypoglycemia and altered mental status on 04/15 via EMS. Per EMS patient was unresponsive on their arrival and her blood glucose was 38 and she received 1 amp of dextrose patient continued to be unresponsive and only moaned with her eyes deviating to the left. Work-up in the emergency department revealed SIRS, symptomatic bradycardia, acute metabolic encephalopathy, acute hypoxic respiratory failure, elevated TSH, hyperglycemia, hyponatremia, hyperkalemia, acute kidney injury with ATN, and rhabdomyolysis. Patient transfered back to telemetry. Patient sleeping. Not responding to verbal stimuli. Patient S/P tracheostomy. Resting on T tube. FIO2 28%. O2 saturation 99%. Patient afebrile. No lekocytosis. Blood pressure 122/54. Chest xray done 05/19/21 reported Stable bibasilar pulmonary opacities, most likely reflects atelectasis/pneumonia, rather than pulmonary edema. Patient albuterol aerosol treatments, S/C Heparin and famotidine. Objective Vital Signs - 12hr 05/21/21 05/21/21 05/21/21 03:40 05:00 07:53 Temperature 98.8 F 98.6 F Pulse Rate 77 77 83 Respiratory 19 20 Rate Blood Pressure 146/60 148/61 O2 Sat by Pulse 97 100 Oximetry O2 Sat by Pulse Oximetry [ Assessment] 05/21/21 05/21/21 05/21/21 08:38 08:39 09:54 Temperature Pulse Rate Respiratory Rate Blood Pressure 151/57 O2 Sat by Pulse 98 Oximetry O2 Sat by Pulse 98 Oximetry [ Assessment] 05/21/21 11:33 Temperature 98.6 F Pulse Rate 75 Respiratory 20 Rate Blood Pressure 122/54 O2 Sat by Pulse 99 Oximetry O2 Sat by Pulse Oximetry [ Assessment] Constitutional: no acute distress, asleep, other (elderly obese female with mildly increased respiratory effort at rest on t-piece, thick secretions with a strong cough) Eyes: non-icteric ENT: oropharynx moist, oropharyngeal exudate pre, other (+ midline tracheostomy without bleeding stoma) Neck: supple, no lymphadenopathy, no JVD, other (large circumference) Effort: normal Ascultation: Bilateral: diminished breath sounds, rales, rhonchi (scant), other (mild stridorous sounds) Percussion: Bilateral: not dull Cardiovascular: regular rate and rhythm, other (S1,S2) Gastrointestinal: normoactive bowel sounds, hypoactive bowel sounds, non-tender, non-distended (protuberant), other (PEG in place) Integumentary: normal Extremities: no cyanosis, no edema, pulses normal, no ischemia or petechiae Neurologic: non-focal exam (tracks voice), pupils equal and round, other (generalized weakness) Psychiatric: other (falt affect) CBC and BMP: 05/20/21 05:18 05/21/21 05:19 ABG, PT/INR, D-dimer: ABG ABG pH 7.417 (7.320-7.450) 05/17/21 21:04 POC ABG pCO2 41.2 mmHg (32.0-48.0) 05/17/21 21:04 POC ABG pO2 88.3 mmHg (83-108) 05/17/21 21:04 POC ABG HCO3 25.9 05/17/21 21:04 ABG O2 Saturation 97.0 (0-100) 05/17/21 21:04 PT/INR, D-dimer PT 14.8 Sec. (12.2-14.9) 05/07/21 08:20 INR 1.11 (0.87-1.13) 05/07/21 08:20 Abnormal lab findings: Abnormal Labs 04/15/21 04/15/21 04/15/21 17:00 17:20 17:20 WBC 11.2 H RBC Hgb Hct 43.0 H MCV MCH RDW 15.3 H Plt Count Lymph % (Auto) 12.8 L [place] % (Auto) [place] # (Auto) Seg Neutrophils % 82.4 H Seg Neuts % (Manual) Lymphocytes % (Manual) Monocytes % (Manual) Seg Neutrophils # 9.3 H Seg Neutrophils # Man Lymphocytes # (Manual) Monocytes # (Manual) ABG pH POC ABG pCO2 POC ABG pO2 ABG Hemoglobin ABG Oxyhemoglobin ABG Sodium ABG Potassium ABG Chloride ABG Glucose Carboxyhemoglobin Sodium 129 L Potassium 7.1 H* Chloride 91.9 L BUN 35 H Creatinine 2.8 H Glucose POC Glucose 191 H Calcium Phosphorus Magnesium AST 69 H ALT Total Creatine Kinase CK-MB (CK-2) Troponin T Total Protein Albumin HDL Cholesterol TSH Free T3 Index Arterial Blood Glucose Arterial Blood Ionized Calcium Urine pH Urine WBC (Auto) Urine Creatinine Acetaminophen Crossmatch 04/15/21 04/15/21 04/15/21 17:20 17:20 17:20 WBC RBC Hgb Hct MCV MCH RDW Plt Count Lymph % (Auto) [place] % (Auto) [place] # (Auto) Seg Neutrophils % Seg Neuts % (Manual) Lymphocytes % (Manual) Monocytes % (Manual) Seg Neutrophils # Seg Neutrophils # Man Lymphocytes # (Manual) Monocytes # (Manual) ABG pH POC ABG pCO2 POC ABG pO2 ABG Hemoglobin ABG Oxyhemoglobin ABG Sodium ABG Potassium ABG Chloride ABG Glucose Carboxyhemoglobin Sodium Potassium Chloride BUN Creatinine Glucose POC Glucose Calcium Phosphorus Magnesium AST ALT Total Creatine Kinase 1000 H CK-MB (CK-2) Troponin T Total Protein Albumin HDL Cholesterol TSH 14.190 H Free T3 Index Arterial Blood Glucose Arterial Blood Ionized Calcium Urine pH Urine WBC (Auto) Urine Creatinine Acetaminophen 5.0 L Crossmatch 04/15/21 04/15/21 04/15/21 20:49 21:23 23:15 WBC RBC Hgb Hct MCV MCH RDW Plt Count Lymph % (Auto) [place] % (Auto) [place] # (Auto) Seg Neutrophils % Seg Neuts % (Manual) Lymphocytes % (Manual) Monocytes % (Manual) Seg Neutrophils # Seg Neutrophils # Man Lymphocytes # (Manual) Monocytes # (Manual) ABG pH 7.557 H POC ABG pCO2 30.0 L POC ABG pO2 493.3 H ABG Hemoglobin ABG Oxyhemoglobin 99.0 H ABG Sodium 131.5 L ABG Potassium 4.7 H ABG Chloride 94.0 L ABG Glucose 218 H Carboxyhemoglobin Sodium Potassium Chloride BUN Creatinine Glucose POC Glucose 173 H 207 H Calcium Phosphorus Magnesium AST ALT Total Creatine Kinase CK-MB (CK-2) Troponin T Total Protein Albumin HDL Cholesterol TSH Free T3 Index Arterial Blood Glucose 218 H Arterial Blood Ionized Calcium 5.4 H Urine pH Urine WBC (Auto) Urine Creatinine Acetaminophen Crossmatch 04/16/21 04/16/21 04/16/21 00:09 00:12 00:19 WBC RBC Hgb Hct MCV MCH RDW Plt Count Lymph % (Auto) [place] % (Auto) [place] # (Auto) Seg Neutrophils % Seg Neuts % (Manual) Lymphocytes % (Manual) Monocytes % (Manual) Seg Neutrophils # Seg Neutrophils # Man Lymphocytes # (Manual) Monocytes # (Manual) ABG pH POC ABG pCO2 POC ABG pO2 ABG Hemoglobin ABG Oxyhemoglobin ABG Sodium ABG Potassium ABG Chloride ABG Glucose Carboxyhemoglobin Sodium Potassium 6.7 H* Chloride BUN Creatinine Glucose POC Glucose Calcium Phosphorus Magnesium AST ALT Total Creatine Kinase CK-MB (CK-2) Troponin T Total Protein Albumin HDL Cholesterol TSH Free T3 Index Arterial Blood Glucose Arterial Blood Ionized Calcium Urine pH 9.0 H Urine WBC (Auto) Urine Creatinine 24.4 H Acetaminophen Crossmatch 04/16/21 04/16/21 04/16/21 03:43 03:55 05:02 WBC 21.2 H RBC Hgb Hct 43.4 H MCV 98 H MCH RDW Plt Count Lymph % (Auto) [place] % (Auto) [place] # (Auto) Seg Neutrophils % Seg Neuts % (Manual) 84.0 H Lymphocytes % (Manual) 2.0 L Monocytes % (Manual) 10.0 H Seg Neutrophils # Seg Neutrophils # Man 17.8 H Lymphocytes # (Manual) 0.4 L Monocytes # (Manual) 2.1 H ABG pH 7.461 H POC ABG pCO2 POC ABG pO2 ABG Hemoglobin ABG Oxyhemoglobin ABG Sodium 126.8 L ABG Potassium 5.4 H ABG Chloride 90.0 L ABG Glucose 325 H Carboxyhemoglobin Sodium Potassium Chloride BUN Creatinine Glucose POC Glucose 391 H Calcium Phosphorus Magnesium AST ALT Total Creatine Kinase CK-MB (CK-2) Troponin T Total Protein Albumin HDL Cholesterol TSH Free T3 Index Arterial Blood Glucose 325 H Arterial Blood Ionized Calcium Urine pH Urine WBC (Auto) Urine Creatinine Acetaminophen Crossmatch 04/16/21 04/16/21 04/16/21 05:02 11:34 16:09 WBC RBC Hgb Hct MCV MCH RDW Plt Count Lymph % (Auto) [place] % (Auto) [place] # (Auto) Seg Neutrophils % Seg Neuts % (Manual) Lymphocytes % (Manual) Monocytes % (Manual) Seg Neutrophils # Seg Neutrophils # Man Lymphocytes # (Manual) Monocytes # (Manual) ABG pH POC ABG pCO2 POC ABG pO2 ABG Hemoglobin ABG Oxyhemoglobin ABG Sodium ABG Potassium ABG Chloride ABG Glucose Carboxyhemoglobin Sodium 131 L Potassium 5.9 H Chloride 88.7 L BUN 34 H Creatinine 2.9 H Glucose 249 H POC Glucose 382 H 300 H Calcium 10.4 H Phosphorus Magnesium AST 65 H ALT Total Creatine Kinase CK-MB (CK-2) Troponin T Total Protein Albumin 3.8 L HDL Cholesterol TSH Free T3 Index Arterial Blood Glucose Arterial Blood Ionized Calcium Urine pH Urine WBC (Auto) Urine Creatinine Acetaminophen Crossmatch 04/16/21 04/16/21 04/16/21 18:15 19:01 19:01 WBC RBC Hgb Hct MCV MCH RDW Plt Count Lymph % (Auto) [place] % (Auto) [place] # (Auto) Seg Neutrophils % Seg Neuts % (Manual) Lymphocytes % (Manual) Monocytes % (Manual) Seg Neutrophils # Seg Neutrophils # Man Lymphocytes # (Manual) Monocytes # (Manual) ABG pH POC ABG pCO2 POC ABG pO2 ABG Hemoglobin ABG Oxyhemoglobin ABG Sodium ABG Potassium ABG Chloride ABG Glucose Carboxyhemoglobin Sodium 125 L Potassium 5.5 H Chloride 84.5 L BUN 37 H Creatinine 3.5 H Glucose 236 H POC Glucose 287 H Calcium Phosphorus Magnesium AST ALT Total Creatine Kinase CK-MB (CK-2) Troponin T Total Protein Albumin HDL Cholesterol TSH Free T3 Index 1.1 L Arterial Blood Glucose Arterial Blood Ionized Calcium Urine pH Urine WBC (Auto) Urine Creatinine Acetaminophen Crossmatch 04/16/21 04/16/21 04/17/21 19:01 23:48 03:09 WBC RBC Hgb Hct MCV MCH RDW Plt Count Lymph % (Auto) [place] % (Auto) [place] # (Auto) Seg Neutrophils % Seg Neuts % (Manual) Lymphocytes % (Manual) Monocytes % (Manual) Seg Neutrophils # Seg Neutrophils # Man Lymphocytes # (Manual) Monocytes # (Manual) ABG pH 7.518 H POC ABG pCO2 POC ABG pO2 ABG Hemoglobin ABG Oxyhemoglobin ABG Sodium 126.4 L ABG Potassium ABG Chloride 89.0 L ABG Glucose 200 H Carboxyhemoglobin Sodium Potassium 5.6 H Chloride BUN Creatinine Glucose POC Glucose 243 H Calcium Phosphorus Magnesium AST ALT Total Creatine Kinase CK-MB (CK-2) Troponin T Total Protein Albumin HDL Cholesterol TSH Free T3 Index Arterial Blood Glucose 200 H Arterial Blood Ionized Calcium 4.4 L Urine pH Urine WBC (Auto) Urine Creatinine Acetaminophen Crossmatch 04/17/21 04/17/21 04/17/21 05:04 06:14 11:55 WBC RBC Hgb Hct MCV MCH RDW Plt Count Lymph % (Auto) [place] % (Auto) [place] # (Auto) Seg Neutrophils % Seg Neuts % (Manual) Lymphocytes % (Manual) Monocytes % (Manual) Seg Neutrophils # Seg Neutrophils # Man Lymphocytes # (Manual) Monocytes # (Manual) ABG pH POC ABG pCO2 POC ABG pO2 ABG Hemoglobin ABG Oxyhemoglobin ABG Sodium ABG Potassium ABG Chloride ABG Glucose Carboxyhemoglobin Sodium 129 L Potassium Chloride 86.1 L BUN 39 H Creatinine 3.5 H Glucose 202 H POC Glucose 208 H 276 H Calcium Phosphorus Magnesium AST ALT Total Creatine Kinase 750 H CK-MB (CK-2) Troponin T 0.119 H* D Total Protein Albumin HDL Cholesterol 61 H TSH Free T3 Index Arterial Blood Glucose Arterial Blood Ionized Calcium Urine pH Urine WBC (Auto) Urine Creatinine Acetaminophen Crossmatch 04/17/21 04/17/21 04/17/21 15:35 15:35 17:07 WBC 17.1 H RBC Hgb Hct MCV MCH RDW Plt Count Lymph % (Auto) [place] % (Auto) [place] # (Auto) Seg Neutrophils % Seg Neuts % (Manual) Lymphocytes % (Manual) Monocytes % (Manual) Seg Neutrophils # Seg Neutrophils # Man Lymphocytes # (Manual) Monocytes # (Manual) ABG pH POC ABG pCO2 POC ABG pO2 ABG Hemoglobin ABG Oxyhemoglobin ABG Sodium ABG Potassium ABG Chloride ABG Glucose Carboxyhemoglobin Sodium Potassium Chloride BUN Creatinine Glucose POC Glucose 148 H Calcium Phosphorus Magnesium AST ALT Total Creatine Kinase 615 H CK-MB (CK-2) 9.1 H Troponin T Total Protein Albumin HDL Cholesterol TSH Free T3 Index Arterial Blood Glucose Arterial Blood Ionized Calcium Urine pH Urine WBC (Auto) Urine Creatinine Acetaminophen Crossmatch 04/18/21 04/18/21 04/18/21 00:01 03:00 05:24 WBC RBC Hgb Hct MCV MCH RDW Plt Count Lymph % (Auto) [place] % (Auto) [place] # (Auto) Seg Neutrophils % Seg Neuts % (Manual) Lymphocytes % (Manual) Monocytes % (Manual) Seg Neutrophils # Seg Neutrophils # Man Lymphocytes # (Manual) Monocytes # (Manual) ABG pH 7.497 H POC ABG pCO2 POC ABG pO2 77.7 L ABG Hemoglobin 10.4 L ABG Oxyhemoglobin ABG Sodium 129.7 L ABG Potassium 2.8 L ABG Chloride 92.0 L ABG Glucose 134 H Carboxyhemoglobin 0.3 L Sodium Potassium Chloride BUN Creatinine Glucose POC Glucose 192 H 162 H Calcium Phosphorus Magnesium AST ALT Total Creatine Kinase CK-MB (CK-2) Troponin T Total Protein Albumin HDL Cholesterol TSH Free T3 Index Arterial Blood Glucose 134 H Arterial Blood Ionized Calcium 4.3 L Urine pH Urine WBC (Auto) Urine Creatinine Acetaminophen Crossmatch 04/18/21 04/18/21 04/18/21 05:34 05:34 05:43 WBC 15.3 H RBC 3.34 L Hgb Hct MCV MCH RDW 15.3 H Plt Count Lymph % (Auto) [place] % (Auto) [place] # (Auto) Seg Neutrophils % Seg Neuts % (Manual) Lymphocytes % (Manual) Monocytes % (Manual) Seg Neutrophils # Seg Neutrophils # Man Lymphocytes # (Manual) Monocytes # (Manual) ABG pH POC ABG pCO2 POC ABG pO2 ABG Hemoglobin ABG Oxyhemoglobin ABG Sodium ABG Potassium ABG Chloride ABG Glucose Carboxyhemoglobin Sodium 134 L Potassium 3.0 L D Chloride 93.5 L BUN 42 H Creatinine 3.1 H Glucose 152 H POC Glucose Calcium Phosphorus Magnesium 1.40 L AST ALT Total Creatine Kinase 427 H CK-MB (CK-2) Troponin T 0.081 H D Total Protein Albumin HDL Cholesterol TSH Free T3 Index Arterial Blood Glucose Arterial Blood Ionized Calcium Urine pH Urine WBC (Auto) Urine Creatinine Acetaminophen Crossmatch 04/18/21 04/18/21 04/18/21 09:11 11:34 17:24 WBC RBC Hgb Hct MCV MCH RDW Plt Count Lymph % (Auto) [place] % (Auto) [place] # (Auto) Seg Neutrophils % Seg Neuts % (Manual) Lymphocytes % (Manual) Monocytes % (Manual) Seg Neutrophils # Seg Neutrophils # Man Lymphocytes # (Manual) Monocytes # (Manual) ABG pH POC ABG pCO2 POC ABG pO2 ABG Hemoglobin ABG Oxyhemoglobin ABG Sodium ABG Potassium ABG Chloride ABG Glucose Carboxyhemoglobin Sodium Potassium Chloride BUN Creatinine Glucose POC Glucose 170 H 151 H Calcium Phosphorus Magnesium AST ALT Total Creatine Kinase CK-MB (CK-2) Troponin T Total Protein Albumin HDL Cholesterol TSH Free T3 Index Arterial Blood Glucose Arterial Blood Ionized Calcium Urine pH Urine WBC (Auto) 34.0 H Urine Creatinine Acetaminophen Crossmatch 05/19/21 05/20/21 05/20/21 23:18 04:09 05:19 WBC RBC Hgb Hct MCV MCH RDW Plt Count Lymph % (Auto) [place] % (Auto) [place] # (Auto) Seg Neutrophils % Seg Neuts % (Manual) Lymphocytes % (Manual) Monocytes % (Manual) Seg Neutrophils # Seg Neutrophils # Man Lymphocytes # (Manual) Monocytes # (Manual) ABG pH 7.476 H POC ABG pCO2 POC ABG pO2 79.4 L ABG Hemoglobin 10.7 L ABG Oxyhemoglobin ABG Sodium 131.2 L ABG Potassium 2.8 L ABG Chloride 94.0 L ABG Glucose 209 H Carboxyhemoglobin 0.3 L Sodium Potassium Chloride BUN Creatinine Glucose POC Glucose 182 H 204 H Calcium Phosphorus Magnesium AST ALT Total Creatine Kinase CK-MB (CK-2) Troponin T Total Protein Albumin HDL Cholesterol TSH Free T3 Index Arterial Blood Glucose 209 H Arterial Blood Ionized Calcium Urine pH Urine WBC (Auto) Urine Creatinine Acetaminophen Crossmatch 04/19/21 04/19/21 04/19/21 07:30 07:30 10:35 WBC 14.8 H RBC 3.20 L Hgb Hct MCV 98 H MCH RDW Plt Count 137 L Lymph % (Auto) [place] % (Auto) [place] # (Auto) Seg Neutrophils % Seg Neuts % (Manual) Lymphocytes % (Manual) Monocytes % (Manual) Seg Neutrophils # Seg Neutrophils # Man Lymphocytes # (Manual) Monocytes # (Manual) ABG pH 7.464 H POC ABG pCO2 POC ABG pO2 81.8 L ABG Hemoglobin 10.8 L ABG Oxyhemoglobin ABG Sodium 129.6 L ABG Potassium ABG Chloride 95.0 L ABG Glucose 238 H Carboxyhemoglobin Sodium 133 L Potassium 2.8 L* Chloride 94.4 L BUN 43 H Creatinine 2.7 H Glucose 255 H POC Glucose Calcium 8.0 L Phosphorus Magnesium AST ALT Total Creatine Kinase CK-MB (CK-2) Troponin T 0.060 H D Total Protein Albumin HDL Cholesterol TSH Free T3 Index Arterial Blood Glucose 238 H Arterial Blood Ionized Calcium Urine pH Urine WBC (Auto) Urine Creatinine Acetaminophen Crossmatch 04/19/21 04/19/21 04/19/21 11:48 20:40 23:04 WBC RBC Hgb Hct MCV MCH RDW Plt Count Lymph % (Auto) [place] % (Auto) [place] # (Auto) Seg Neutrophils % Seg Neuts % (Manual) Lymphocytes % (Manual) Monocytes % (Manual) Seg Neutrophils # Seg Neutrophils # Man Lymphocytes # (Manual) Monocytes # (Manual) ABG pH POC ABG pCO2 POC ABG pO2 ABG Hemoglobin ABG Oxyhemoglobin ABG Sodium ABG Potassium ABG Chloride ABG Glucose Carboxyhemoglobin Sodium Potassium 3.4 L D Chloride BUN Creatinine Glucose POC Glucose 208 H 173 H Calcium Phosphorus Magnesium AST ALT Total Creatine Kinase CK-MB (CK-2) Troponin T Total Protein Albumin HDL Cholesterol TSH Free T3 Index Arterial Blood Glucose Arterial Blood Ionized Calcium Urine pH Urine WBC (Auto) Urine Creatinine Acetaminophen Crossmatch 04/20/21 04/20/21 04/20/21 02:56 03:32 03:32 WBC 13.2 H RBC 3.18 L Hgb Hct MCV MCH RDW Plt Count Lymph % (Auto) [place] % (Auto) [place] # (Auto) Seg Neutrophils % Seg Neuts % (Manual) Lymphocytes % (Manual) Monocytes % (Manual) Seg Neutrophils # Seg Neutrophils # Man Lymphocytes # (Manual) Monocytes # (Manual) ABG pH 7.526 H POC ABG pCO2 POC ABG pO2 ABG Hemoglobin 10.5 L ABG Oxyhemoglobin ABG Sodium 133.5 L ABG Potassium ABG Chloride ABG Glucose 157 H Carboxyhemoglobin 0.3 L Sodium 135 L Potassium Chloride 96.7 L BUN 40 H Creatinine 2.3 H Glucose 142 H POC Glucose Calcium Phosphorus Magnesium AST ALT Total Creatine Kinase CK-MB (CK-2) Troponin T 0.065 H Total Protein Albumin HDL Cholesterol TSH Free T3 Index Arterial Blood Glucose 157 H Arterial Blood Ionized Calcium Urine pH Urine WBC (Auto) Urine Creatinine Acetaminophen Crossmatch 04/20/21 04/20/21 04/20/21 03:46 05:42 11:50 WBC RBC Hgb Hct MCV MCH RDW Plt Count Lymph % (Auto) [place] % (Auto) [place] # (Auto) Seg Neutrophils % Seg Neuts % (Manual) Lymphocytes % (Manual) Monocytes % (Manual) Seg Neutrophils # Seg Neutrophils # Man Lymphocytes # (Manual) Monocytes # (Manual) ABG pH POC ABG pCO2 POC ABG pO2 ABG Hemoglobin ABG Oxyhemoglobin ABG Sodium ABG Potassium ABG Chloride ABG Glucose Carboxyhemoglobin Sodium Potassium Chloride BUN Creatinine Glucose POC Glucose 160 H 194 H Calcium Phosphorus 2.10 L Magnesium AST ALT Total Creatine Kinase CK-MB (CK-2) Troponin T Total Protein Albumin HDL Cholesterol TSH Free T3 Index Arterial Blood Glucose Arterial Blood Ionized Calcium Urine pH Urine WBC (Auto) Urine Creatinine Acetaminophen Crossmatch 04/20/21 04/20/21 04/21/21 17:09 23:18 05:26 WBC RBC Hgb Hct MCV MCH RDW Plt Count Lymph % (Auto) [place] % (Auto) [place] # (Auto) Seg Neutrophils % Seg Neuts % (Manual) Lymphocytes % (Manual) Monocytes % (Manual) Seg Neutrophils # Seg Neutrophils # Man Lymphocytes # (Manual) Monocytes # (Manual) ABG pH POC ABG pCO2 POC ABG pO2 ABG Hemoglobin ABG Oxyhemoglobin ABG Sodium ABG Potassium ABG Chloride ABG Glucose Carboxyhemoglobin Sodium Potassium Chloride BUN Creatinine Glucose POC Glucose 153 H 162 H 164 H Calcium Phosphorus Magnesium AST ALT Total Creatine Kinase CK-MB (CK-2) Troponin T Total Protein Albumin HDL Cholesterol TSH Free T3 Index Arterial Blood Glucose Arterial Blood Ionized Calcium Urine pH Urine WBC (Auto) Urine Creatinine Acetaminophen Crossmatch 04/21/21 04/21/21 04/21/21 05:51 05:51 12:12 WBC RBC 3.20 L Hgb Hct MCV 99 H MCH RDW 15.3 H Plt Count Lymph % (Auto) [place] % (Auto) [place] # (Auto) Seg Neutrophils % Seg Neuts % (Manual) Lymphocytes % (Manual) Monocytes % (Manual) Seg Neutrophils # Seg Neutrophils # Man Lymphocytes # (Manual) Monocytes # (Manual) ABG pH POC ABG pCO2 POC ABG pO2 ABG Hemoglobin ABG Oxyhemoglobin ABG Sodium ABG Potassium ABG Chloride ABG Glucose Carboxyhemoglobin Sodium Potassium Chloride 96.6 L BUN 42 H Creatinine 2.1 H Glucose 171 H POC Glucose 167 H Calcium Phosphorus Magnesium AST ALT Total Creatine Kinase CK-MB (CK-2) Troponin T Total Protein Albumin HDL Cholesterol TSH Free T3 Index Arterial Blood Glucose Arterial Blood Ionized Calcium Urine pH Urine WBC (Auto) Urine Creatinine Acetaminophen Crossmatch 04/21/21 04/21/21 04/22/21 17:13 23:42 05:29 WBC RBC Hgb Hct MCV MCH RDW Plt Count Lymph % (Auto) [place] % (Auto) [place] # (Auto) Seg Neutrophils % Seg Neuts % (Manual) Lymphocytes % (Manual) Monocytes % (Manual) Seg Neutrophils # Seg Neutrophils # Man Lymphocytes # (Manual) Monocytes # (Manual) ABG pH POC ABG pCO2 POC ABG pO2 ABG Hemoglobin ABG Oxyhemoglobin ABG Sodium ABG Potassium ABG Chloride ABG Glucose Carboxyhemoglobin Sodium Potassium Chloride BUN Creatinine Glucose POC Glucose 178 H 253 H 208 H Calcium Phosphorus Magnesium AST ALT Total Creatine Kinase CK-MB (CK-2) Troponin T Total Protein Albumin HDL Cholesterol TSH Free T3 Index Arterial Blood Glucose Arterial Blood Ionized Calcium Urine pH Urine WBC (Auto) Urine Creatinine Acetaminophen Crossmatch 04/22/21 04/22/21 04/22/21 08:00 08:00 12:06 WBC 12.9 H RBC Hgb Hct MCV MCH RDW Plt Count Lymph % (Auto) [place] % (Auto) [place] # (Auto) Seg Neutrophils % Seg Neuts % (Manual) Lymphocytes % (Manual) Monocytes % (Manual) Seg Neutrophils # Seg Neutrophils # Man Lymphocytes # (Manual) Monocytes # (Manual) ABG pH POC ABG pCO2 POC ABG pO2 ABG Hemoglobin ABG Oxyhemoglobin ABG Sodium ABG Potassium ABG Chloride ABG Glucose Carboxyhemoglobin Sodium Potassium Chloride BUN 47 H Creatinine 1.9 H Glucose 252 H POC Glucose 298 H Calcium Phosphorus Magnesium AST ALT Total Creatine Kinase CK-MB (CK-2) Troponin T Total Protein Albumin HDL Cholesterol TSH Free T3 Index Arterial Blood Glucose Arterial Blood Ionized Calcium Urine pH Urine WBC (Auto) Urine Creatinine Acetaminophen Crossmatch 04/22/21 04/22/21 04/23/21 17:34 23:01 05:08 WBC RBC Hgb Hct MCV MCH RDW Plt Count Lymph % (Auto) [place] % (Auto) [place] # (Auto) Seg Neutrophils % Seg Neuts % (Manual) Lymphocytes % (Manual) Monocytes % (Manual) Seg Neutrophils # Seg Neutrophils # Man Lymphocytes # (Manual) Monocytes # (Manual) ABG pH POC ABG pCO2 POC ABG pO2 ABG Hemoglobin ABG Oxyhemoglobin ABG Sodium ABG Potassium ABG Chloride ABG Glucose Carboxyhemoglobin Sodium Potassium Chloride BUN Creatinine Glucose POC Glucose 259 H 280 H 223 H Calcium Phosphorus Magnesium AST ALT Total Creatine Kinase CK-MB (CK-2) Troponin T Total Protein Albumin HDL Cholesterol TSH Free T3 Index Arterial Blood Glucose Arterial Blood Ionized Calcium Urine pH Urine WBC (Auto) Urine Creatinine Acetaminophen Crossmatch 04/23/21 04/23/21 04/23/21 07:02 11:57 17:33 WBC RBC Hgb Hct MCV MCH RDW Plt Count Lymph % (Auto) [place] % (Auto) [place] # (Auto) Seg Neutrophils % Seg Neuts % (Manual) Lymphocytes % (Manual) Monocytes % (Manual) Seg Neutrophils # Seg Neutrophils # Man Lymphocytes # (Manual) Monocytes # (Manual) ABG pH POC ABG pCO2 POC ABG pO2 ABG Hemoglobin ABG Oxyhemoglobin ABG Sodium ABG Potassium ABG Chloride ABG Glucose Carboxyhemoglobin Sodium Potassium Chloride 97.7 L BUN 57 H Creatinine 2.0 H Glucose 253 H POC Glucose 310 H 235 H Calcium Phosphorus Magnesium AST ALT Total Creatine Kinase CK-MB (CK-2) Troponin T Total Protein Albumin HDL Cholesterol TSH Free T3 Index Arterial Blood Glucose Arterial Blood Ionized Calcium Urine pH Urine WBC (Auto) Urine Creatinine Acetaminophen Crossmatch 04/23/21 04/24/21 04/24/21 23:15 05:23 05:46 WBC RBC Hgb Hct MCV MCH RDW Plt Count Lymph % (Auto) [place] % (Auto) [place] # (Auto) Seg Neutrophils % Seg Neuts % (Manual) Lymphocytes % (Manual) Monocytes % (Manual) Seg Neutrophils # Seg Neutrophils # Man Lymphocytes # (Manual) Monocytes # (Manual) ABG pH POC ABG pCO2 POC ABG pO2 ABG Hemoglobin ABG Oxyhemoglobin ABG Sodium ABG Potassium ABG Chloride ABG Glucose Carboxyhemoglobin Sodium Potassium 5.2 H D Chloride BUN 68 H Creatinine 2.3 H Glucose 277 H POC Glucose 197 H 274 H Calcium Phosphorus Magnesium AST ALT Total Creatine Kinase CK-MB (CK-2) Troponin T Total Protein Albumin HDL Cholesterol TSH Free T3 Index Arterial Blood Glucose Arterial Blood Ionized Calcium Urine pH Urine WBC (Auto) Urine Creatinine Acetaminophen Crossmatch 04/24/21 04/24/21 04/24/21 11:33 11:52 17:49 WBC RBC Hgb Hct MCV MCH RDW Plt Count Lymph % (Auto) [place] % (Auto) [place] # (Auto) Seg Neutrophils % Seg Neuts % (Manual) Lymphocytes % (Manual) Monocytes % (Manual) Seg Neutrophils # Seg Neutrophils # Man Lymphocytes # (Manual) Monocytes # (Manual) ABG pH POC ABG pCO2 POC ABG pO2 72.7 L ABG Hemoglobin 11.6 L ABG Oxyhemoglobin 92.9 L ABG Sodium ABG Potassium ABG Chloride ABG Glucose 269 H Carboxyhemoglobin Sodium Potassium Chloride BUN Creatinine Glucose POC Glucose 223 H 252 H Calcium Phosphorus Magnesium AST ALT Total Creatine Kinase CK-MB (CK-2) Troponin T Total Protein Albumin HDL Cholesterol TSH Free T3 Index Arterial Blood Glucose 269 H Arterial Blood Ionized Calcium Urine pH Urine WBC (Auto) Urine Creatinine Acetaminophen Crossmatch 04/24/21 04/24/21 04/25/21 21:00 23:48 03:06 WBC RBC Hgb Hct MCV MCH RDW Plt Count Lymph % (Auto) [place] % (Auto) [place] # (Auto) Seg Neutrophils % Seg Neuts % (Manual) Lymphocytes % (Manual) Monocytes % (Manual) Seg Neutrophils # Seg Neutrophils # Man Lymphocytes # (Manual) Monocytes # (Manual) ABG pH 7.521 H 7.451 H POC ABG pCO2 POC ABG pO2 80.7 L 77.1 L ABG Hemoglobin 10.4 L 11.2 L ABG Oxyhemoglobin ABG Sodium ABG Potassium ABG Chloride ABG Glucose 186 H 165 H Carboxyhemoglobin 0 L Sodium Potassium Chloride BUN Creatinine Glucose POC Glucose 141 H Calcium Phosphorus Magnesium AST ALT Total Creatine Kinase CK-MB (CK-2) Troponin T Total Protein Albumin HDL Cholesterol TSH Free T3 Index Arterial Blood Glucose 186 H 165 H Arterial Blood Ionized Calcium Urine pH Urine WBC (Auto) Urine Creatinine Acetaminophen Crossmatch 04/25/21 04/25/21 04/25/21 03:56 03:56 06:03 WBC 12.3 H RBC 3.40 L Hgb Hct MCV MCH RDW Plt Count Lymph % (Auto) [place] % (Auto) [place] # (Auto) Seg Neutrophils % Seg Neuts % (Manual) Lymphocytes % (Manual) Monocytes % (Manual) Seg Neutrophils # Seg Neutrophils # Man Lymphocytes # (Manual) Monocytes # (Manual) ABG pH POC ABG pCO2 POC ABG pO2 ABG Hemoglobin ABG Oxyhemoglobin ABG Sodium ABG Potassium ABG Chloride ABG Glucose Carboxyhemoglobin Sodium Potassium Chloride BUN 78 H Creatinine 2.5 H Glucose 152 H POC Glucose 171 H Calcium Phosphorus Magnesium AST ALT Total Creatine Kinase CK-MB (CK-2) Troponin T Total Protein Albumin HDL Cholesterol TSH Free T3 Index Arterial Blood Glucose Arterial Blood Ionized Calcium Urine pH Urine WBC (Auto) Urine Creatinine Acetaminophen Crossmatch 04/25/21 04/25/21 04/26/21 11:43 15:37 00:05 WBC RBC Hgb Hct MCV MCH RDW Plt Count Lymph % (Auto) [place] % (Auto) [place] # (Auto) Seg Neutrophils % Seg Neuts % (Manual) Lymphocytes % (Manual) Monocytes % (Manual) Seg Neutrophils # Seg Neutrophils # Man Lymphocytes # (Manual) Monocytes # (Manual) ABG pH POC ABG pCO2 POC ABG pO2 ABG Hemoglobin ABG Oxyhemoglobin ABG Sodium ABG Potassium ABG Chloride ABG Glucose Carboxyhemoglobin Sodium Potassium Chloride BUN Creatinine Glucose POC Glucose 181 H 167 H 144 H Calcium Phosphorus Magnesium AST ALT Total Creatine Kinase CK-MB (CK-2) Troponin T Total Protein Albumin HDL Cholesterol TSH Free T3 Index Arterial Blood Glucose Arterial Blood Ionized Calcium Urine pH Urine WBC (Auto) Urine Creatinine Acetaminophen Crossmatch 04/26/21 04/26/21 04/26/21 04:30 05:44 09:30 WBC RBC Hgb Hct MCV MCH RDW Plt Count Lymph % (Auto) [place] % (Auto) [place] # (Auto) Seg Neutrophils % Seg Neuts % (Manual) Lymphocytes % (Manual) Monocytes % (Manual) Seg Neutrophils # Seg Neutrophils # Man Lymphocytes # (Manual) Monocytes # (Manual) ABG pH 7.529 H POC ABG pCO2 POC ABG pO2 66.1 L ABG Hemoglobin 11.2 L ABG Oxyhemoglobin 92.8 L ABG Sodium ABG Potassium ABG Chloride ABG Glucose 216 H Carboxyhemoglobin 0.3 L Sodium Potassium Chloride BUN 82 H Creatinine 2.7 H Glucose 238 H POC Glucose 202 H Calcium Phosphorus Magnesium AST ALT Total Creatine Kinase CK-MB (CK-2) Troponin T Total Protein Albumin HDL Cholesterol TSH Free T3 Index Arterial Blood Glucose 216 H Arterial Blood Ionized Calcium Urine pH Urine WBC (Auto) Urine Creatinine Acetaminophen Crossmatch 04/26/21 04/26/21 04/26/21 09:30 11:32 17:21 WBC 24.7 H RBC 3.32 L Hgb Hct MCV MCH RDW Plt Count Lymph % (Auto) [place] % (Auto) [place] # (Auto) Seg Neutrophils % Seg Neuts % (Manual) Lymphocytes % (Manual) Monocytes % (Manual) Seg Neutrophils # Seg Neutrophils # Man Lymphocytes # (Manual) Monocytes # (Manual) ABG pH POC ABG pCO2 POC ABG pO2 ABG Hemoglobin ABG Oxyhemoglobin ABG Sodium ABG Potassium ABG Chloride ABG Glucose Carboxyhemoglobin Sodium Potassium Chloride BUN Creatinine Glucose POC Glucose 245 H 264 H Calcium Phosphorus Magnesium AST ALT Total Creatine Kinase CK-MB (CK-2) Troponin T Total Protein Albumin HDL Cholesterol TSH Free T3 Index Arterial Blood Glucose Arterial Blood Ionized Calcium Urine pH Urine WBC (Auto) Urine Creatinine Acetaminophen Crossmatch 04/26/21 04/27/21 04/27/21 23:18 04:23 04:54 WBC RBC Hgb Hct MCV MCH RDW Plt Count Lymph % (Auto) [place] % (Auto) [place] # (Auto) Seg Neutrophils % Seg Neuts % (Manual) Lymphocytes % (Manual) Monocytes % (Manual) Seg Neutrophils # Seg Neutrophils # Man Lymphocytes # (Manual) Monocytes # (Manual) ABG pH 7.549 H POC ABG pCO2 30.0 L POC ABG pO2 64.9 L ABG Hemoglobin 11 L ABG Oxyhemoglobin 93.3 L ABG Sodium ABG Potassium ABG Chloride ABG Glucose 325 H Carboxyhemoglobin 0.3 L Sodium Potassium Chloride BUN Creatinine Glucose POC Glucose 201 H 298 H Calcium Phosphorus Magnesium AST ALT Total Creatine Kinase CK-MB (CK-2) Troponin T Total Protein Albumin HDL Cholesterol TSH Free T3 Index Arterial Blood Glucose 325 H Arterial Blood Ionized Calcium Urine pH Urine WBC (Auto) Urine Creatinine Acetaminophen Crossmatch 04/27/21 04/27/21 04/27/21 07:52 07:52 11:22 WBC 23.0 H RBC 3.32 L Hgb Hct MCV MCH RDW 15.5 H Plt Count Lymph % (Auto) [place] % (Auto) [place] # (Auto) Seg Neutrophils % Seg Neuts % (Manual) Lymphocytes % (Manual) Monocytes % (Manual) Seg Neutrophils # Seg Neutrophils # Man Lymphocytes # (Manual) Monocytes # (Manual) ABG pH POC ABG pCO2 POC ABG pO2 ABG Hemoglobin ABG Oxyhemoglobin ABG Sodium ABG Potassium ABG Chloride ABG Glucose Carboxyhemoglobin Sodium Potassium 3.5 L Chloride BUN 90 H Creatinine 2.8 H Glucose 286 H POC Glucose 251 H Calcium Phosphorus Magnesium AST ALT Total Creatine Kinase CK-MB (CK-2) Troponin T Total Protein Albumin HDL Cholesterol TSH Free T3 Index Arterial Blood Glucose Arterial Blood Ionized Calcium Urine pH Urine WBC (Auto) Urine Creatinine Acetaminophen Crossmatch 04/27/21 04/27/21 04/27/21 17:21 17:45 23:05 WBC RBC Hgb Hct MCV MCH RDW Plt Count Lymph % (Auto) [place] % (Auto) [place] # (Auto) Seg Neutrophils % Seg Neuts % (Manual) Lymphocytes % (Manual) Monocytes % (Manual) Seg Neutrophils # Seg Neutrophils # Man Lymphocytes # (Manual) Monocytes # (Manual) ABG pH POC ABG pCO2 POC ABG pO2 ABG Hemoglobin ABG Oxyhemoglobin ABG Sodium ABG Potassium ABG Chloride ABG Glucose Carboxyhemoglobin Sodium Potassium Chloride BUN Creatinine Glucose POC Glucose 180 H 178 H 189 H Calcium Phosphorus Magnesium AST ALT Total Creatine Kinase CK-MB (CK-2) Troponin T Total Protein Albumin HDL Cholesterol TSH Free T3 Index Arterial Blood Glucose Arterial Blood Ionized Calcium Urine pH Urine WBC (Auto) Urine Creatinine Acetaminophen Crossmatch 04/28/21 04/28/21 04/28/21 03:14 04:13 04:13 WBC 17.6 H RBC 3.03 L Hgb 9.7 L Hct 29.5 L MCV MCH RDW Plt Count Lymph % (Auto) [place] % (Auto) [place] # (Auto) Seg Neutrophils % Seg Neuts % (Manual) Lymphocytes % (Manual) Monocytes % (Manual) Seg Neutrophils # Seg Neutrophils # Man Lymphocytes # (Manual) Monocytes # (Manual) ABG pH 7.507 H POC ABG pCO2 POC ABG pO2 62.0 L ABG Hemoglobin 10.2 L ABG Oxyhemoglobin 91.9 L ABG Sodium ABG Potassium ABG Chloride ABG Glucose 337 H Carboxyhemoglobin 0.2 L Sodium Potassium Chloride BUN 101 H Creatinine 3.1 H Glucose 304 H POC Glucose Calcium Phosphorus Magnesium AST 61 H ALT 64 H Total Creatine Kinase CK-MB (CK-2) Troponin T Total Protein 6.2 L Albumin 2.6 L HDL Cholesterol TSH Free T3 Index Arterial Blood Glucose 337 H Arterial Blood Ionized Calcium Urine pH Urine WBC (Auto) Urine Creatinine Acetaminophen Crossmatch 04/28/21 04/28/21 04/28/21 05:01 11:28 18:23 WBC RBC Hgb Hct MCV MCH RDW Plt Count Lymph % (Auto) [place] % (Auto) [place] # (Auto) Seg Neutrophils % Seg Neuts % (Manual) Lymphocytes % (Manual) Monocytes % (Manual) Seg Neutrophils # Seg Neutrophils # Man Lymphocytes # (Manual) Monocytes # (Manual) ABG pH POC ABG pCO2 POC ABG pO2 ABG Hemoglobin ABG Oxyhemoglobin ABG Sodium ABG Potassium ABG Chloride ABG Glucose Carboxyhemoglobin Sodium Potassium Chloride BUN Creatinine Glucose POC Glucose 282 H 263 H 200 H Calcium Phosphorus Magnesium AST ALT Total Creatine Kinase CK-MB (CK-2) Troponin T Total Protein Albumin HDL Cholesterol TSH Free T3 Index Arterial Blood Glucose Arterial Blood Ionized Calcium Urine pH Urine WBC (Auto) Urine Creatinine Acetaminophen Crossmatch 04/28/21 04/29/21 04/29/21 23:49 03:24 04:22 WBC RBC Hgb Hct MCV MCH RDW Plt Count Lymph % (Auto) [place] % (Auto) [place] # (Auto) Seg Neutrophils % Seg Neuts % (Manual) Lymphocytes % (Manual) Monocytes % (Manual) Seg Neutrophils # Seg Neutrophils # Man Lymphocytes # (Manual) Monocytes # (Manual) ABG pH 7.546 H POC ABG pCO2 POC ABG pO2 52.4 L ABG Hemoglobin 10.5 L ABG Oxyhemoglobin 88.3 L ABG Sodium ABG Potassium ABG Chloride ABG Glucose 217 H Carboxyhemoglobin 0.4 L Sodium 148 H Potassium Chloride BUN 110 H Creatinine 3.1 H Glucose 208 H POC Glucose 238 H Calcium Phosphorus Magnesium AST ALT Total Creatine Kinase CK-MB (CK-2) Troponin T Total Protein Albumin HDL Cholesterol TSH Free T3 Index Arterial Blood Glucose 217 H Arterial Blood Ionized Calcium Urine pH Urine WBC (Auto) Urine Creatinine Acetaminophen Crossmatch 04/29/21 04/29/21 04/29/21 04:22 05:08 11:26 WBC 15.2 H RBC 3.30 L Hgb 9.8 L Hct MCV MCH RDW Plt Count Lymph % (Auto) [place] % (Auto) [place] # (Auto) Seg Neutrophils % Seg Neuts % (Manual) Lymphocytes % (Manual) Monocytes % (Manual) Seg Neutrophils # Seg Neutrophils # Man Lymphocytes # (Manual) Monocytes # (Manual) ABG pH POC ABG pCO2 POC ABG pO2 ABG Hemoglobin ABG Oxyhemoglobin ABG Sodium ABG Potassium ABG Chloride ABG Glucose Carboxyhemoglobin Sodium Potassium Chloride BUN Creatinine Glucose POC Glucose 181 H 218 H Calcium Phosphorus Magnesium AST ALT Total Creatine Kinase CK-MB (CK-2) Troponin T Total Protein Albumin HDL Cholesterol TSH Free T3 Index Arterial Blood Glucose Arterial Blood Ionized Calcium Urine pH Urine WBC (Auto) Urine Creatinine Acetaminophen Crossmatch 04/29/21 04/29/21 04/30/21 17:06 23:06 03:58 WBC RBC Hgb Hct MCV MCH RDW Plt Count Lymph % (Auto) [place] % (Auto) [place] # (Auto) Seg Neutrophils % Seg Neuts % (Manual) Lymphocytes % (Manual) Monocytes % (Manual) Seg Neutrophils # Seg Neutrophils # Man Lymphocytes # (Manual) Monocytes # (Manual) ABG pH 7.547 H POC ABG pCO2 31.3 L POC ABG pO2 58.4 L ABG Hemoglobin 9.6 L ABG Oxyhemoglobin 91.1 L ABG Sodium ABG Potassium ABG Chloride 108.0 H ABG Glucose 248 H Carboxyhemoglobin 0.2 L Sodium Potassium Chloride BUN Creatinine Glucose POC Glucose 223 H 252 H Calcium Phosphorus Magnesium AST ALT Total Creatine Kinase CK-MB (CK-2) Troponin T Total Protein Albumin HDL Cholesterol TSH Free T3 Index Arterial Blood Glucose 248 H Arterial Blood Ionized Calcium Urine pH Urine WBC (Auto) Urine Creatinine Acetaminophen Crossmatch 04/30/21 04/30/21 04/30/21 05:23 05:54 11:47 WBC RBC Hgb Hct MCV MCH RDW Plt Count Lymph % (Auto) [place] % (Auto) [place] # (Auto) Seg Neutrophils % Seg Neuts % (Manual) Lymphocytes % (Manual) Monocytes % (Manual) Seg Neutrophils # Seg Neutrophils # Man Lymphocytes # (Manual) Monocytes # (Manual) ABG pH POC ABG pCO2 POC ABG pO2 ABG Hemoglobin ABG Oxyhemoglobin ABG Sodium ABG Potassium ABG Chloride ABG Glucose Carboxyhemoglobin Sodium Potassium Chloride BUN 118 H Creatinine 3.3 H Glucose 263 H POC Glucose 244 H 237 H Calcium Phosphorus Magnesium AST ALT Total Creatine Kinase CK-MB (CK-2) Troponin T Total Protein Albumin HDL Cholesterol TSH Free T3 Index Arterial Blood Glucose Arterial Blood Ionized Calcium Urine pH Urine WBC (Auto) Urine Creatinine Acetaminophen Crossmatch 04/30/21 04/30/21 04/30/21 17:26 17:45 23:51 WBC RBC Hgb Hct MCV MCH RDW Plt Count Lymph % (Auto) [place] % (Auto) [place] # (Auto) Seg Neutrophils % Seg Neuts % (Manual) Lymphocytes % (Manual) Monocytes % (Manual) Seg Neutrophils # Seg Neutrophils # Man Lymphocytes # (Manual) Monocytes # (Manual) ABG pH POC ABG pCO2 POC ABG pO2 ABG Hemoglobin ABG Oxyhemoglobin ABG Sodium ABG Potassium ABG Chloride ABG Glucose Carboxyhemoglobin Sodium Potassium Chloride BUN Creatinine Glucose POC Glucose 193 H 197 H Calcium Phosphorus Magnesium AST ALT Total Creatine Kinase CK-MB (CK-2) Troponin T Total Protein Albumin HDL Cholesterol TSH Free T3 Index Arterial Blood Glucose Arterial Blood Ionized Calcium Urine pH Urine WBC (Auto) 48.0 H Urine Creatinine Acetaminophen Crossmatch 05/01/21 05/01/21 05/01/21 04:02 04:57 07:11 WBC 12.3 H RBC 2.83 L Hgb 8.8 L Hct 27.3 L MCV MCH RDW Plt Count Lymph % (Auto) [place] % (Auto) [place] # (Auto) Seg Neutrophils % Seg Neuts % (Manual) 80.0 H Lymphocytes % (Manual) 5.0 L Monocytes % (Manual) Seg Neutrophils # Seg Neutrophils # Man 9.8 H Lymphocytes # (Manual) 0.6 L Monocytes # (Manual) ABG pH 7.466 H POC ABG pCO2 POC ABG pO2 61.4 L ABG Hemoglobin 9.0 L ABG Oxyhemoglobin 91.1 L ABG Sodium ABG Potassium ABG Chloride 110.0 H ABG Glucose 245 H Carboxyhemoglobin Sodium Potassium Chloride BUN Creatinine Glucose POC Glucose 193 H Calcium Phosphorus Magnesium AST ALT Total Creatine Kinase CK-MB (CK-2) Troponin T Total Protein Albumin HDL Cholesterol TSH Free T3 Index Arterial Blood Glucose 245 H Arterial Blood Ionized Calcium Urine pH Urine WBC (Auto) Urine Creatinine Acetaminophen Crossmatch 05/01/21 05/01/21 05/01/21 07:11 07:45 11:30 WBC RBC Hgb Hct MCV MCH RDW Plt Count Lymph % (Auto) [place] % (Auto) [place] # (Auto) Seg Neutrophils % Seg Neuts % (Manual) Lymphocytes % (Manual) Monocytes % (Manual) Seg Neutrophils # Seg Neutrophils # Man Lymphocytes # (Manual) Monocytes # (Manual) ABG pH POC ABG pCO2 POC ABG pO2 ABG Hemoglobin ABG Oxyhemoglobin ABG Sodium ABG Potassium ABG Chloride ABG Glucose Carboxyhemoglobin Sodium 146 H Potassium Chloride 108.4 H BUN 122 H Creatinine 3.4 H Glucose 235 H POC Glucose 212 H 247 H Calcium Phosphorus Magnesium AST ALT Total Creatine Kinase CK-MB (CK-2) Troponin T Total Protein Albumin HDL Cholesterol TSH Free T3 Index Arterial Blood Glucose Arterial Blood Ionized Calcium Urine pH Urine WBC (Auto) Urine Creatinine Acetaminophen Crossmatch 05/01/21 05/01/21 05/01/21 11:31 17:42 23:49 WBC RBC Hgb Hct MCV MCH RDW Plt Count Lymph % (Auto) [place] % (Auto) [place] # (Auto) Seg Neutrophils % Seg Neuts % (Manual) Lymphocytes % (Manual) Monocytes % (Manual) Seg Neutrophils # Seg Neutrophils # Man Lymphocytes # (Manual) Monocytes # (Manual) ABG pH POC ABG pCO2 POC ABG pO2 ABG Hemoglobin ABG Oxyhemoglobin ABG Sodium ABG Potassium ABG Chloride ABG Glucose Carboxyhemoglobin Sodium Potassium Chloride BUN Creatinine Glucose POC Glucose 258 H 171 H 167 H Calcium Phosphorus Magnesium AST ALT Total Creatine Kinase CK-MB (CK-2) Troponin T Total Protein Albumin HDL Cholesterol TSH Free T3 Index Arterial Blood Glucose Arterial Blood Ionized Calcium Urine pH Urine WBC (Auto) Urine Creatinine Acetaminophen Crossmatch 05/02/21 05/02/21 05/02/21 05:12 08:34 11:53 WBC RBC Hgb Hct MCV MCH RDW Plt Count Lymph % (Auto) [place] % (Auto) [place] # (Auto) Seg Neutrophils % Seg Neuts % (Manual) Lymphocytes % (Manual) Monocytes % (Manual) Seg Neutrophils # Seg Neutrophils # Man Lymphocytes # (Manual) Monocytes # (Manual) ABG pH POC ABG pCO2 POC ABG pO2 ABG Hemoglobin ABG Oxyhemoglobin ABG Sodium ABG Potassium ABG Chloride ABG Glucose Carboxyhemoglobin Sodium 148 H Potassium Chloride 110.4 H BUN 124 H Creatinine 3.4 H Glucose 208 H POC Glucose 163 H 185 H Calcium 8.3 L Phosphorus Magnesium AST ALT Total Creatine Kinase CK-MB (CK-2) Troponin T Total Protein Albumin HDL Cholesterol TSH Free T3 Index Arterial Blood Glucose Arterial Blood Ionized Calcium Urine pH Urine WBC (Auto) Urine Creatinine Acetaminophen Crossmatch 05/02/21 05/02/21 05/03/21 17:28 23:32 03:57 WBC RBC Hgb Hct MCV MCH RDW Plt Count Lymph % (Auto) [place] % (Auto) [place] # (Auto) Seg Neutrophils % Seg Neuts % (Manual) Lymphocytes % (Manual) Monocytes % (Manual) Seg Neutrophils # Seg Neutrophils # Man Lymphocytes # (Manual) Monocytes # (Manual) ABG pH 7.531 H POC ABG pCO2 31.0 L POC ABG pO2 64.3 L ABG Hemoglobin 9.0 L ABG Oxyhemoglobin 92.6 L ABG Sodium 145.7 H ABG Potassium ABG Chloride 112.0 H ABG Glucose 202 H Carboxyhemoglobin Sodium Potassium Chloride BUN Creatinine Glucose POC Glucose 147 H 202 H Calcium Phosphorus Magnesium AST ALT Total Creatine Kinase CK-MB (CK-2) Troponin T Total Protein Albumin HDL Cholesterol TSH Free T3 Index Arterial Blood Glucose 202 H Arterial Blood Ionized Calcium Urine pH Urine WBC (Auto) Urine Creatinine Acetaminophen Crossmatch 05/03/21 05/03/21 05/03/21 05:14 05:44 11:10 WBC RBC Hgb Hct MCV MCH RDW Plt Count Lymph % (Auto) [place] % (Auto) [place] # (Auto) Seg Neutrophils % Seg Neuts % (Manual) Lymphocytes % (Manual) Monocytes % (Manual) Seg Neutrophils # Seg Neutrophils # Man Lymphocytes # (Manual) Monocytes # (Manual) ABG pH POC ABG pCO2 POC ABG pO2 ABG Hemoglobin ABG Oxyhemoglobin ABG Sodium ABG Potassium ABG Chloride ABG Glucose Carboxyhemoglobin Sodium 147 H Potassium Chloride 109.7 H BUN 121 H Creatinine 3.1 H Glucose 190 H POC Glucose 175 H 202 H Calcium Phosphorus Magnesium AST ALT Total Creatine Kinase CK-MB (CK-2) Troponin T Total Protein Albumin HDL Cholesterol TSH Free T3 Index Arterial Blood Glucose Arterial Blood Ionized Calcium Urine pH Urine WBC (Auto) Urine Creatinine Acetaminophen Crossmatch 05/03/21 05/04/21 05/04/21 23:58 04:57 04:57 WBC RBC 2.61 L Hgb 8.2 L Hct 25.4 L MCV 98 H MCH RDW 15.3 H Plt Count Lymph % (Auto) [place] % (Auto) [place] # (Auto) Seg Neutrophils % Seg Neuts % (Manual) Lymphocytes % (Manual) Monocytes % (Manual) Seg Neutrophils # Seg Neutrophils # Man Lymphocytes # (Manual) Monocytes # (Manual) ABG pH POC ABG pCO2 POC ABG pO2 ABG Hemoglobin ABG Oxyhemoglobin ABG Sodium ABG Potassium ABG Chloride ABG Glucose Carboxyhemoglobin Sodium 147 H Potassium Chloride 111.0 H BUN 104 H Creatinine 2.8 H Glucose 179 H POC Glucose 131 H Calcium Phosphorus Magnesium AST ALT Total Creatine Kinase CK-MB (CK-2) Troponin T Total Protein Albumin HDL Cholesterol TSH Free T3 Index Arterial Blood Glucose Arterial Blood Ionized Calcium Urine pH Urine WBC (Auto) Urine Creatinine Acetaminophen Crossmatch 05/04/21 05/04/21 05/04/21 05:19 11:28 17:02 WBC RBC Hgb Hct MCV MCH RDW Plt Count Lymph % (Auto) [place] % (Auto) [place] # (Auto) Seg Neutrophils % Seg Neuts % (Manual) Lymphocytes % (Manual) Monocytes % (Manual) Seg Neutrophils # Seg Neutrophils # Man Lymphocytes # (Manual) Monocytes # (Manual) ABG pH POC ABG pCO2 POC ABG pO2 ABG Hemoglobin ABG Oxyhemoglobin ABG Sodium ABG Potassium ABG Chloride ABG Glucose Carboxyhemoglobin Sodium Potassium Chloride BUN Creatinine Glucose POC Glucose 168 H 206 H 213 H Calcium Phosphorus Magnesium AST ALT Total Creatine Kinase CK-MB (CK-2) Troponin T Total Protein Albumin HDL Cholesterol TSH Free T3 Index Arterial Blood Glucose Arterial Blood Ionized Calcium Urine pH Urine WBC (Auto) Urine Creatinine Acetaminophen Crossmatch 05/04/21 05/05/21 05/05/21 23:13 04:55 05:15 WBC RBC Hgb Hct MCV MCH RDW Plt Count Lymph % (Auto) [place] % (Auto) [place] # (Auto) Seg Neutrophils % Seg Neuts % (Manual) Lymphocytes % (Manual) Monocytes % (Manual) Seg Neutrophils # Seg Neutrophils # Man Lymphocytes # (Manual) Monocytes # (Manual) ABG pH POC ABG pCO2 POC ABG pO2 ABG Hemoglobin ABG Oxyhemoglobin ABG Sodium ABG Potassium ABG Chloride ABG Glucose Carboxyhemoglobin Sodium Potassium Chloride BUN 91 H Creatinine 2.4 H Glucose 255 H POC Glucose 232 H 235 H Calcium Phosphorus Magnesium AST ALT Total Creatine Kinase CK-MB (CK-2) Troponin T Total Protein Albumin HDL Cholesterol TSH Free T3 Index Arterial Blood Glucose Arterial Blood Ionized Calcium Urine pH Urine WBC (Auto) Urine Creatinine Acetaminophen Crossmatch 05/05/21 05/05/21 05/05/21 11:41 17:46 23:40 WBC RBC Hgb Hct MCV MCH RDW Plt Count Lymph % (Auto) [place] % (Auto) [place] # (Auto) Seg Neutrophils % Seg Neuts % (Manual) Lymphocytes % (Manual) Monocytes % (Manual) Seg Neutrophils # Seg Neutrophils # Man Lymphocytes # (Manual) Monocytes # (Manual) ABG pH POC ABG pCO2 POC ABG pO2 ABG Hemoglobin ABG Oxyhemoglobin ABG Sodium ABG Potassium ABG Chloride ABG Glucose Carboxyhemoglobin Sodium Potassium Chloride BUN Creatinine Glucose POC Glucose 199 H 231 H 224 H Calcium Phosphorus Magnesium AST ALT Total Creatine Kinase CK-MB (CK-2) Troponin T Total Protein Albumin HDL Cholesterol TSH Free T3 Index Arterial Blood Glucose Arterial Blood Ionized Calcium Urine pH Urine WBC (Auto) Urine Creatinine Acetaminophen Crossmatch 05/06/21 05/06/21 05/06/21 04:00 05:37 07:12 WBC RBC Hgb Hct MCV MCH RDW Plt Count Lymph % (Auto) [place] % (Auto) [place] # (Auto) Seg Neutrophils % Seg Neuts % (Manual) Lymphocytes % (Manual) Monocytes % (Manual) Seg Neutrophils # Seg Neutrophils # Man Lymphocytes # (Manual) Monocytes # (Manual) ABG pH 7.464 H POC ABG pCO2 POC ABG pO2 74.2 L ABG Hemoglobin 10.5 L ABG Oxyhemoglobin ABG Sodium ABG Potassium ABG Chloride 110.0 H ABG Glucose 214 H Carboxyhemoglobin 0.4 L Sodium 146 H Potassium Chloride 110.4 H BUN 82 H Creatinine 2.3 H Glucose 154 H POC Glucose 165 H Calcium Phosphorus Magnesium AST ALT Total Creatine Kinase CK-MB (CK-2) Troponin T Total Protein Albumin HDL Cholesterol TSH Free T3 Index Arterial Blood Glucose 214 H Arterial Blood Ionized Calcium Urine pH Urine WBC (Auto) Urine Creatinine Acetaminophen Crossmatch 05/06/21 05/06/21 05/07/21 17:11 23:40 05:26 WBC RBC Hgb Hct MCV MCH RDW Plt Count Lymph % (Auto) [place] % (Auto) [place] # (Auto) Seg Neutrophils % Seg Neuts % (Manual) Lymphocytes % (Manual) Monocytes % (Manual) Seg Neutrophils # Seg Neutrophils # Man Lymphocytes # (Manual) Monocytes # (Manual) ABG pH POC ABG pCO2 POC ABG pO2 ABG Hemoglobin ABG Oxyhemoglobin ABG Sodium ABG Potassium ABG Chloride ABG Glucose Carboxyhemoglobin Sodium Potassium Chloride BUN Creatinine Glucose POC Glucose 126 H 165 H 156 H Calcium Phosphorus Magnesium AST ALT Total Creatine Kinase CK-MB (CK-2) Troponin T Total Protein Albumin HDL Cholesterol TSH Free T3 Index Arterial Blood Glucose Arterial Blood Ionized Calcium Urine pH Urine WBC (Auto) Urine Creatinine Acetaminophen Crossmatch 05/07/21 05/07/21 05/07/21 08:20 08:20 11:35 WBC RBC 2.58 L Hgb 7.9 L Hct 24.9 L MCV MCH RDW Plt Count Lymph % (Auto) [place] % (Auto) [place] # (Auto) Seg Neutrophils % Seg Neuts % (Manual) Lymphocytes % (Manual) Monocytes % (Manual) Seg Neutrophils # Seg Neutrophils # Man Lymphocytes # (Manual) Monocytes # (Manual) ABG pH POC ABG pCO2 POC ABG pO2 ABG Hemoglobin ABG Oxyhemoglobin ABG Sodium ABG Potassium ABG Chloride ABG Glucose Carboxyhemoglobin Sodium Potassium Chloride 108.4 H BUN 81 H Creatinine 2.4 H Glucose 133 H POC Glucose 112 H Calcium Phosphorus Magnesium AST ALT Total Creatine Kinase CK-MB (CK-2) Troponin T Total Protein Albumin HDL Cholesterol TSH Free T3 Index Arterial Blood Glucose Arterial Blood Ionized Calcium Urine pH Urine WBC (Auto) Urine Creatinine Acetaminophen Crossmatch 05/07/21 05/07/21 05/08/21 17:51 23:27 03:05 WBC RBC Hgb Hct MCV MCH RDW Plt Count Lymph % (Auto) [place] % (Auto) [place] # (Auto) Seg Neutrophils % Seg Neuts % (Manual) Lymphocytes % (Manual) Monocytes % (Manual) Seg Neutrophils # Seg Neutrophils # Man Lymphocytes # (Manual) Monocytes # (Manual) ABG pH 7.454 H POC ABG pCO2 POC ABG pO2 82.1 L ABG Hemoglobin 8.1 L ABG Oxyhemoglobin ABG Sodium ABG Potassium 4.8 H ABG Chloride 111.0 H ABG Glucose 194 H Carboxyhemoglobin Sodium Potassium Chloride BUN Creatinine Glucose POC Glucose 136 H 133 H Calcium Phosphorus Magnesium AST ALT Total Creatine Kinase CK-MB (CK-2) Troponin T Total Protein Albumin HDL Cholesterol TSH Free T3 Index Arterial Blood Glucose 194 H Arterial Blood Ionized Calcium Urine pH Urine WBC (Auto) Urine Creatinine Acetaminophen Crossmatch 05/08/21 05/08/21 05/08/21 05:52 07:07 07:07 WBC 12.0 H RBC 2.94 L Hgb 9.0 L Hct 28.5 L MCV MCH RDW Plt Count Lymph % (Auto) [place] % (Auto) [place] # (Auto) Seg Neutrophils % Seg Neuts % (Manual) Lymphocytes % (Manual) Monocytes % (Manual) Seg Neutrophils # Seg Neutrophils # Man Lymphocytes # (Manual) Monocytes # (Manual) ABG pH POC ABG pCO2 POC ABG pO2 ABG Hemoglobin ABG Oxyhemoglobin ABG Sodium ABG Potassium ABG Chloride ABG Glucose Carboxyhemoglobin Sodium Potassium Chloride BUN 73 H Creatinine 2.2 H Glucose 211 H POC Glucose 194 H Calcium Phosphorus Magnesium AST ALT Total Creatine Kinase CK-MB (CK-2) Troponin T Total Protein Albumin HDL Cholesterol TSH Free T3 Index Arterial Blood Glucose Arterial Blood Ionized Calcium Urine pH Urine WBC (Auto) Urine Creatinine Acetaminophen Crossmatch 05/08/21 05/08/21 05/08/21 11:19 17:20 23:22 WBC RBC Hgb Hct MCV MCH RDW Plt Count Lymph % (Auto) [place] % (Auto) [place] # (Auto) Seg Neutrophils % Seg Neuts % (Manual) Lymphocytes % (Manual) Monocytes % (Manual) Seg Neutrophils # Seg Neutrophils # Man Lymphocytes # (Manual) Monocytes # (Manual) ABG pH POC ABG pCO2 POC ABG pO2 ABG Hemoglobin ABG Oxyhemoglobin ABG Sodium ABG Potassium ABG Chloride ABG Glucose Carboxyhemoglobin Sodium Potassium Chloride BUN Creatinine Glucose POC Glucose 231 H 251 H 295 H Calcium Phosphorus Magnesium AST ALT Total Creatine Kinase CK-MB (CK-2) Troponin T Total Protein Albumin HDL Cholesterol TSH Free T3 Index Arterial Blood Glucose Arterial Blood Ionized Calcium Urine pH Urine WBC (Auto) Urine Creatinine Acetaminophen Crossmatch 05/09/21 05/09/21 05/09/21 05:39 07:36 11:39 WBC RBC Hgb Hct MCV MCH RDW Plt Count Lymph % (Auto) [place] % (Auto) [place] # (Auto) Seg Neutrophils % Seg Neuts % (Manual) Lymphocytes % (Manual) Monocytes % (Manual) Seg Neutrophils # Seg Neutrophils # Man Lymphocytes # (Manual) Monocytes # (Manual) ABG pH POC ABG pCO2 POC ABG pO2 ABG Hemoglobin ABG Oxyhemoglobin ABG Sodium ABG Potassium ABG Chloride ABG Glucose Carboxyhemoglobin Sodium Potassium Chloride BUN 64 H Creatinine 2.2 H Glucose 308 H POC Glucose 240 H 330 H Calcium Phosphorus Magnesium AST ALT Total Creatine Kinase CK-MB (CK-2) Troponin T Total Protein Albumin HDL Cholesterol TSH Free T3 Index Arterial Blood Glucose Arterial Blood Ionized Calcium Urine pH Urine WBC (Auto) Urine Creatinine Acetaminophen Crossmatch 05/09/21 05/09/21 05/10/21 17:37 23:15 05:15 WBC RBC Hgb Hct MCV MCH RDW Plt Count Lymph % (Auto) [place] % (Auto) [place] # (Auto) Seg Neutrophils % Seg Neuts % (Manual) Lymphocytes % (Manual) Monocytes % (Manual) Seg Neutrophils # Seg Neutrophils # Man Lymphocytes # (Manual) Monocytes # (Manual) ABG pH POC ABG pCO2 POC ABG pO2 ABG Hemoglobin ABG Oxyhemoglobin ABG Sodium ABG Potassium ABG Chloride ABG Glucose Carboxyhemoglobin Sodium Potassium Chloride BUN Creatinine Glucose POC Glucose 174 H 152 H 146 H Calcium Phosphorus Magnesium AST ALT Total Creatine Kinase CK-MB (CK-2) Troponin T Total Protein Albumin HDL Cholesterol TSH Free T3 Index Arterial Blood Glucose Arterial Blood Ionized Calcium Urine pH Urine WBC (Auto) Urine Creatinine Acetaminophen Crossmatch 05/10/21 05/10/21 05/10/21 05:36 11:29 17:35 WBC RBC Hgb Hct MCV MCH RDW Plt Count Lymph % (Auto) [place] % (Auto) [place] # (Auto) Seg Neutrophils % Seg Neuts % (Manual) Lymphocytes % (Manual) Monocytes % (Manual) Seg Neutrophils # Seg Neutrophils # Man Lymphocytes # (Manual) Monocytes # (Manual) ABG pH POC ABG pCO2 POC ABG pO2 ABG Hemoglobin ABG Oxyhemoglobin ABG Sodium ABG Potassium ABG Chloride ABG Glucose Carboxyhemoglobin Sodium Potassium Chloride 110.7 H BUN 54 H Creatinine 2.2 H Glucose 164 H POC Glucose 202 H 109 H Calcium Phosphorus Magnesium AST ALT Total Creatine Kinase CK-MB (CK-2) Troponin T Total Protein Albumin HDL Cholesterol TSH Free T3 Index Arterial Blood Glucose Arterial Blood Ionized Calcium Urine pH Urine WBC (Auto) Urine Creatinine Acetaminophen Crossmatch 05/11/21 05/11/21 05/11/21 05:38 07:10 11:54 WBC RBC Hgb Hct MCV MCH RDW Plt Count Lymph % (Auto) [place] % (Auto) [place] # (Auto) Seg Neutrophils % Seg Neuts % (Manual) Lymphocytes % (Manual) Monocytes % (Manual) Seg Neutrophils # Seg Neutrophils # Man Lymphocytes # (Manual) Monocytes # (Manual) ABG pH POC ABG pCO2 POC ABG pO2 ABG Hemoglobin ABG Oxyhemoglobin ABG Sodium ABG Potassium ABG Chloride ABG Glucose Carboxyhemoglobin Sodium Potassium 5.2 H Chloride 108.8 H BUN 50 H Creatinine 2.2 H Glucose 176 H POC Glucose 135 H 219 H Calcium Phosphorus Magnesium AST ALT Total Creatine Kinase CK-MB (CK-2) Troponin T Total Protein Albumin HDL Cholesterol TSH Free T3 Index Arterial Blood Glucose Arterial Blood Ionized Calcium Urine pH Urine WBC (Auto) Urine Creatinine Acetaminophen Crossmatch 05/11/21 05/11/21 05/12/21 17:51 22:50 04:51 WBC RBC Hgb Hct MCV MCH RDW Plt Count Lymph % (Auto) [place] % (Auto) [place] # (Auto) Seg Neutrophils % Seg Neuts % (Manual) Lymphocytes % (Manual) Monocytes % (Manual) Seg Neutrophils # Seg Neutrophils # Man Lymphocytes # (Manual) Monocytes # (Manual) ABG pH POC ABG pCO2 POC ABG pO2 ABG Hemoglobin ABG Oxyhemoglobin ABG Sodium ABG Potassium ABG Chloride ABG Glucose Carboxyhemoglobin Sodium Potassium Chloride 108.2 H BUN 49 H Creatinine 2.2 H Glucose 161 H POC Glucose 169 H 118 H Calcium Phosphorus Magnesium AST ALT Total Creatine Kinase CK-MB (CK-2) Troponin T Total Protein Albumin HDL Cholesterol TSH Free T3 Index Arterial Blood Glucose Arterial Blood Ionized Calcium Urine pH Urine WBC (Auto) Urine Creatinine Acetaminophen Crossmatch 05/12/21 05/12/21 05/12/21 05:05 10:31 11:50 WBC RBC Hgb Hct MCV MCH RDW Plt Count Lymph % (Auto) [place] % (Auto) [place] # (Auto) Seg Neutrophils % Seg Neuts % (Manual) Lymphocytes % (Manual) Monocytes % (Manual) Seg Neutrophils # Seg Neutrophils # Man Lymphocytes # (Manual) Monocytes # (Manual) ABG pH 7.498 H POC ABG pCO2 POC ABG pO2 75.8 L ABG Hemoglobin 7.3 L ABG Oxyhemoglobin 93.4 L ABG Sodium ABG Potassium ABG Chloride 108.0 H ABG Glucose 199 H Carboxyhemoglobin 1.6 H Sodium Potassium Chloride BUN Creatinine Glucose POC Glucose 160 H 160 H Calcium Phosphorus Magnesium AST ALT Total Creatine Kinase CK-MB (CK-2) Troponin T Total Protein Albumin HDL Cholesterol TSH Free T3 Index Arterial Blood Glucose 199 H Arterial Blood Ionized Calcium Urine pH Urine WBC (Auto) Urine Creatinine Acetaminophen Crossmatch 05/12/21 05/12/21 05/13/21 17:39 23:36 05:49 WBC RBC Hgb Hct MCV MCH RDW Plt Count Lymph % (Auto) [place] % (Auto) [place] # (Auto) Seg Neutrophils % Seg Neuts % (Manual) Lymphocytes % (Manual) Monocytes % (Manual) Seg Neutrophils # Seg Neutrophils # Man Lymphocytes # (Manual) Monocytes # (Manual) ABG pH POC ABG pCO2 POC ABG pO2 ABG Hemoglobin ABG Oxyhemoglobin ABG Sodium ABG Potassium ABG Chloride ABG Glucose Carboxyhemoglobin Sodium Potassium Chloride BUN Creatinine Glucose POC Glucose 148 H 148 H 173 H Calcium Phosphorus Magnesium AST ALT Total Creatine Kinase CK-MB (CK-2) Troponin T Total Protein Albumin HDL Cholesterol TSH Free T3 Index Arterial Blood Glucose Arterial Blood Ionized Calcium Urine pH Urine WBC (Auto) Urine Creatinine Acetaminophen Crossmatch 05/13/21 05/13/21 05/13/21 05:58 13:09 17:01 WBC RBC Hgb Hct MCV MCH RDW Plt Count Lymph % (Auto) [place] % (Auto) [place] # (Auto) Seg Neutrophils % Seg Neuts % (Manual) Lymphocytes % (Manual) Monocytes % (Manual) Seg Neutrophils # Seg Neutrophils # Man Lymphocytes # (Manual) Monocytes # (Manual) ABG pH POC ABG pCO2 POC ABG pO2 ABG Hemoglobin ABG Oxyhemoglobin ABG Sodium ABG Potassium ABG Chloride ABG Glucose Carboxyhemoglobin Sodium Potassium Chloride 108.0 H BUN 53 H Creatinine 2.2 H Glucose 178 H POC Glucose 191 H 151 H Calcium Phosphorus Magnesium AST ALT Total Creatine Kinase CK-MB (CK-2) Troponin T Total Protein Albumin HDL Cholesterol TSH Free T3 Index Arterial Blood Glucose Arterial Blood Ionized Calcium Urine pH Urine WBC (Auto) Urine Creatinine Acetaminophen Crossmatch 05/14/21 05/14/21 05/14/21 00:02 04:48 08:16 WBC RBC Hgb Hct MCV MCH RDW Plt Count Lymph % (Auto) [place] % (Auto) [place] # (Auto) Seg Neutrophils % Seg Neuts % (Manual) Lymphocytes % (Manual) Monocytes % (Manual) Seg Neutrophils # Seg Neutrophils # Man Lymphocytes # (Manual) Monocytes # (Manual) ABG pH POC ABG pCO2 POC ABG pO2 ABG Hemoglobin ABG Oxyhemoglobin ABG Sodium ABG Potassium ABG Chloride ABG Glucose Carboxyhemoglobin Sodium Potassium Chloride BUN 45 H Creatinine 2.0 H Glucose 207 H POC Glucose 148 H 193 H Calcium Phosphorus Magnesium AST ALT Total Creatine Kinase CK-MB (CK-2) Troponin T Total Protein Albumin HDL Cholesterol TSH Free T3 Index Arterial Blood Glucose Arterial Blood Ionized Calcium Urine pH Urine WBC (Auto) Urine Creatinine Acetaminophen Crossmatch 05/14/21 05/14/21 05/14/21 08:50 12:44 17:29 WBC RBC 2.16 L Hgb 7.0 L Hct 21.2 L MCV 98 H MCH 33 H RDW 16.0 H Plt Count Lymph % (Auto) [place] % (Auto) [place] # (Auto) Seg Neutrophils % Seg Neuts % (Manual) Lymphocytes % (Manual) Monocytes % (Manual) Seg Neutrophils # Seg Neutrophils # Man Lymphocytes # (Manual) Monocytes # (Manual) ABG pH POC ABG pCO2 POC ABG pO2 ABG Hemoglobin ABG Oxyhemoglobin ABG Sodium ABG Potassium ABG Chloride ABG Glucose Carboxyhemoglobin Sodium Potassium Chloride BUN Creatinine Glucose POC Glucose 215 H 118 H Calcium Phosphorus Magnesium AST ALT Total Creatine Kinase CK-MB (CK-2) Troponin T Total Protein Albumin HDL Cholesterol TSH Free T3 Index Arterial Blood Glucose Arterial Blood Ionized Calcium Urine pH Urine WBC (Auto) Urine Creatinine Acetaminophen Crossmatch 05/14/21 05/15/21 05/15/21 19:00 05:11 05:51 WBC RBC Hgb Hct MCV MCH RDW Plt Count Lymph % (Auto) [place] % (Auto) [place] # (Auto) Seg Neutrophils % Seg Neuts % (Manual) Lymphocytes % (Manual) Monocytes % (Manual) Seg Neutrophils # Seg Neutrophils # Man Lymphocytes # (Manual) Monocytes # (Manual) ABG pH POC ABG pCO2 POC ABG pO2 ABG Hemoglobin ABG Oxyhemoglobin ABG Sodium ABG Potassium ABG Chloride ABG Glucose Carboxyhemoglobin Sodium Potassium 5.3 H Chloride BUN 42 H Creatinine 2.0 H Glucose 123 H POC Glucose 116 H Calcium Phosphorus Magnesium AST ALT Total Creatine Kinase CK-MB (CK-2) Troponin T Total Protein Albumin HDL Cholesterol TSH Free T3 Index Arterial Blood Glucose Arterial Blood Ionized Calcium Urine pH Urine WBC (Auto) Urine Creatinine Acetaminophen Crossmatch See Detail 05/15/21 05/15/21 05/15/21 05:51 11:27 22:00 WBC RBC 2.60 L Hgb 8.0 L Hct 24.6 L MCV MCH RDW 17.0 H Plt Count Lymph % (Auto) [place] % (Auto) 15.3 H [place] # (Auto) 1.1 H Seg Neutrophils % Seg Neuts % (Manual) Lymphocytes % (Manual) Monocytes % (Manual) Seg Neutrophils # Seg Neutrophils # Man Lymphocytes # (Manual) Monocytes # (Manual) ABG pH 7.473 H POC ABG pCO2 POC ABG pO2 77.7 L ABG Hemoglobin 8.4 L ABG Oxyhemoglobin ABG Sodium ABG Potassium 4.7 H ABG Chloride ABG Glucose 104 H Carboxyhemoglobin Sodium Potassium Chloride BUN Creatinine Glucose POC Glucose 156 H Calcium Phosphorus Magnesium AST ALT Total Creatine Kinase CK-MB (CK-2) Troponin T Total Protein Albumin HDL Cholesterol TSH Free T3 Index Arterial Blood Glucose 104 H Arterial Blood Ionized Calcium Urine pH Urine WBC (Auto) Urine Creatinine Acetaminophen Crossmatch 05/16/21 05/16/21 05/16/21 05:25 06:40 11:57 WBC RBC Hgb Hct MCV MCH RDW Plt Count Lymph % (Auto) [place] % (Auto) [place] # (Auto) Seg Neutrophils % Seg Neuts % (Manual) Lymphocytes % (Manual) Monocytes % (Manual) Seg Neutrophils # Seg Neutrophils # Man Lymphocytes # (Manual) Monocytes # (Manual) ABG pH POC ABG pCO2 POC ABG pO2 ABG Hemoglobin ABG Oxyhemoglobin ABG Sodium ABG Potassium ABG Chloride ABG Glucose Carboxyhemoglobin Sodium Potassium 5.4 H Chloride BUN 39 H Creatinine 2.0 H Glucose 165 H POC Glucose 143 H 191 H Calcium Phosphorus Magnesium AST ALT Total Creatine Kinase CK-MB (CK-2) Troponin T Total Protein Albumin HDL Cholesterol TSH Free T3 Index Arterial Blood Glucose Arterial Blood Ionized Calcium Urine pH Urine WBC (Auto) Urine Creatinine Acetaminophen Crossmatch 05/16/21 05/16/21 05/17/21 17:18 23:02 05:08 WBC RBC Hgb Hct MCV MCH RDW Plt Count Lymph % (Auto) [place] % (Auto) [place] # (Auto) Seg Neutrophils % Seg Neuts % (Manual) Lymphocytes % (Manual) Monocytes % (Manual) Seg Neutrophils # Seg Neutrophils # Man Lymphocytes # (Manual) Monocytes # (Manual) ABG pH POC ABG pCO2 POC ABG pO2 ABG Hemoglobin ABG Oxyhemoglobin ABG Sodium ABG Potassium ABG Chloride ABG Glucose Carboxyhemoglobin Sodium Potassium Chloride BUN Creatinine Glucose POC Glucose 157 H 127 H 171 H Calcium Phosphorus Magnesium AST ALT Total Creatine Kinase CK-MB (CK-2) Troponin T Total Protein Albumin HDL Cholesterol TSH Free T3 Index Arterial Blood Glucose Arterial Blood Ionized Calcium Urine pH Urine WBC (Auto) Urine Creatinine Acetaminophen Crossmatch 05/17/21 05/17/21 05/17/21 07:43 07:43 11:11 WBC RBC 2.83 L Hgb 8.6 L Hct 26.8 L MCV MCH RDW 16.2 H Plt Count Lymph % (Auto) [place] % (Auto) [place] # (Auto) Seg Neutrophils % Seg Neuts % (Manual) Lymphocytes % (Manual) Monocytes % (Manual) Seg Neutrophils # Seg Neutrophils # Man Lymphocytes # (Manual) Monocytes # (Manual) ABG pH POC ABG pCO2 POC ABG pO2 ABG Hemoglobin ABG Oxyhemoglobin ABG Sodium ABG Potassium ABG Chloride ABG Glucose Carboxyhemoglobin Sodium Potassium Chloride BUN 39 H Creatinine 2.1 H Glucose 183 H POC Glucose 182 H Calcium Phosphorus Magnesium AST ALT Total Creatine Kinase CK-MB (CK-2) Troponin T Total Protein Albumin HDL Cholesterol TSH Free T3 Index Arterial Blood Glucose Arterial Blood Ionized Calcium Urine pH Urine WBC (Auto) Urine Creatinine Acetaminophen Crossmatch 05/17/21 05/17/21 05/18/21 17:25 21:04 01:54 WBC RBC Hgb Hct MCV MCH RDW Plt Count Lymph % (Auto) [place] % (Auto) [place] # (Auto) Seg Neutrophils % Seg Neuts % (Manual) Lymphocytes % (Manual) Monocytes % (Manual) Seg Neutrophils # Seg Neutrophils # Man Lymphocytes # (Manual) Monocytes # (Manual) ABG pH POC ABG pCO2 POC ABG pO2 ABG Hemoglobin 9.2 L ABG Oxyhemoglobin ABG Sodium ABG Potassium ABG Chloride ABG Glucose 160 H Carboxyhemoglobin Sodium Potassium Chloride BUN Creatinine Glucose POC Glucose 117 H 130 H Calcium Phosphorus Magnesium AST ALT Total Creatine Kinase CK-MB (CK-2) Troponin T Total Protein Albumin HDL Cholesterol TSH Free T3 Index Arterial Blood Glucose 160 H Arterial Blood Ionized Calcium Urine pH Urine WBC (Auto) Urine Creatinine Acetaminophen Crossmatch 05/18/21 05/18/21 05/18/21 05:21 06:13 06:45 WBC RBC Hgb Hct MCV MCH RDW Plt Count Lymph % (Auto) [place] % (Auto) [place] # (Auto) Seg Neutrophils % Seg Neuts % (Manual) Lymphocytes % (Manual) Monocytes % (Manual) Seg Neutrophils # Seg Neutrophils # Man Lymphocytes # (Manual) Monocytes # (Manual) ABG pH POC ABG pCO2 POC ABG pO2 ABG Hemoglobin ABG Oxyhemoglobin ABG Sodium ABG Potassium ABG Chloride ABG Glucose Carboxyhemoglobin Sodium Potassium Chloride BUN 42 H Creatinine 2.1 H Glucose 154 H POC Glucose 163 H Calcium Phosphorus Magnesium AST ALT Total Creatine Kinase CK-MB (CK-2) Troponin T Total Protein Albumin HDL Cholesterol TSH Free T3 Index Arterial Blood Glucose Arterial Blood Ionized Calcium Urine pH Urine WBC (Auto) Urine Creatinine 104.7 H Acetaminophen Crossmatch 05/18/21 05/18/21 05/18/21 12:01 16:01 23:59 WBC RBC Hgb Hct MCV MCH RDW Plt Count Lymph % (Auto) [place] % (Auto) [place] # (Auto) Seg Neutrophils % Seg Neuts % (Manual) Lymphocytes % (Manual) Monocytes % (Manual) Seg Neutrophils # Seg Neutrophils # Man Lymphocytes # (Manual) Monocytes # (Manual) ABG pH POC ABG pCO2 POC ABG pO2 ABG Hemoglobin ABG Oxyhemoglobin ABG Sodium ABG Potassium ABG Chloride ABG Glucose Carboxyhemoglobin Sodium Potassium Chloride BUN Creatinine Glucose POC Glucose 209 H 142 H 118 H Calcium Phosphorus Magnesium AST ALT Total Creatine Kinase CK-MB (CK-2) Troponin T Total Protein Albumin HDL Cholesterol TSH Free T3 Index Arterial Blood Glucose Arterial Blood Ionized Calcium Urine pH Urine WBC (Auto) Urine Creatinine Acetaminophen Crossmatch 05/19/21 05/19/21 05/19/21 06:22 07:40 07:40 WBC RBC 2.55 L Hgb 8.1 L Hct 24.4 L MCV MCH RDW 16.5 H Plt Count Lymph % (Auto) [place] % (Auto) [place] # (Auto) Seg Neutrophils % Seg Neuts % (Manual) Lymphocytes % (Manual) Monocytes % (Manual) Seg Neutrophils # Seg Neutrophils # Man Lymphocytes # (Manual) Monocytes # (Manual) ABG pH POC ABG pCO2 POC ABG pO2 ABG Hemoglobin ABG Oxyhemoglobin ABG Sodium ABG Potassium ABG Chloride ABG Glucose Carboxyhemoglobin Sodium 136 L Potassium Chloride BUN 37 H Creatinine 2.0 H Glucose 163 H POC Glucose 151 H Calcium Phosphorus Magnesium AST ALT Total Creatine Kinase CK-MB (CK-2) Troponin T Total Protein Albumin HDL Cholesterol TSH Free T3 Index Arterial Blood Glucose Arterial Blood Ionized Calcium Urine pH Urine WBC (Auto) Urine Creatinine Acetaminophen Crossmatch 05/19/21 05/19/21 05/19/21 11:13 16:41 17:58 WBC RBC Hgb Hct MCV MCH RDW Plt Count Lymph % (Auto) [place] % (Auto) [place] # (Auto) Seg Neutrophils % Seg Neuts % (Manual) Lymphocytes % (Manual) Monocytes % (Manual) Seg Neutrophils # Seg Neutrophils # Man Lymphocytes # (Manual) Monocytes # (Manual) ABG pH POC ABG pCO2 POC ABG pO2 ABG Hemoglobin ABG Oxyhemoglobin ABG Sodium ABG Potassium ABG Chloride ABG Glucose Carboxyhemoglobin Sodium Potassium Chloride BUN Creatinine Glucose POC Glucose 162 H 112 H 106 H Calcium Phosphorus Magnesium AST ALT Total Creatine Kinase CK-MB (CK-2) Troponin T Total Protein Albumin HDL Cholesterol TSH Free T3 Index Arterial Blood Glucose Arterial Blood Ionized Calcium Urine pH Urine WBC (Auto) Urine Creatinine Acetaminophen Crossmatch 05/20/21 05/20/21 05/20/21 01:11 05:18 05:18 WBC RBC 2.59 L Hgb 8.0 L Hct 24.6 L MCV MCH RDW 16.1 H Plt Count Lymph % (Auto) [place] % (Auto) [place] # (Auto) Seg Neutrophils % Seg Neuts % (Manual) Lymphocytes % (Manual) Monocytes % (Manual) Seg Neutrophils # Seg Neutrophils # Man Lymphocytes # (Manual) Monocytes # (Manual) ABG pH POC ABG pCO2 POC ABG pO2 ABG Hemoglobin ABG Oxyhemoglobin ABG Sodium ABG Potassium ABG Chloride ABG Glucose Carboxyhemoglobin Sodium 134 L Potassium Chloride BUN 35 H Creatinine 1.9 H Glucose 185 H POC Glucose 172 H Calcium Phosphorus Magnesium AST ALT Total Creatine Kinase CK-MB (CK-2) Troponin T Total Protein Albumin HDL Cholesterol TSH Free T3 Index Arterial Blood Glucose Arterial Blood Ionized Calcium Urine pH Urine WBC (Auto) Urine Creatinine Acetaminophen Crossmatch 05/20/21 05/20/21 05/20/21 06:04 11:26 23:20 WBC RBC Hgb Hct MCV MCH RDW Plt Count Lymph % (Auto) [place] % (Auto) [place] # (Auto) Seg Neutrophils % Seg Neuts % (Manual) Lymphocytes % (Manual) Monocytes % (Manual) Seg Neutrophils # Seg Neutrophils # Man Lymphocytes # (Manual) Monocytes # (Manual) ABG pH POC ABG pCO2 POC ABG pO2 ABG Hemoglobin ABG Oxyhemoglobin ABG Sodium ABG Potassium ABG Chloride ABG Glucose Carboxyhemoglobin Sodium Potassium Chloride BUN Creatinine Glucose POC Glucose 202 H 238 H 138 H Calcium Phosphorus Magnesium AST ALT Total Creatine Kinase CK-MB (CK-2) Troponin T Total Protein Albumin HDL Cholesterol TSH Free T3 Index Arterial Blood Glucose Arterial Blood Ionized Calcium Urine pH Urine WBC (Auto) Urine Creatinine Acetaminophen Crossmatch 05/21/21 05/21/21 05:19 05:27 WBC RBC Hgb Hct MCV MCH RDW Plt Count Lymph % (Auto) [place] % (Auto) [place] # (Auto) Seg Neutrophils % Seg Neuts % (Manual) Lymphocytes % (Manual) Monocytes % (Manual) Seg Neutrophils # Seg Neutrophils # Man Lymphocytes # (Manual) Monocytes # (Manual) ABG pH POC ABG pCO2 POC ABG pO2 ABG Hemoglobin ABG Oxyhemoglobin ABG Sodium ABG Potassium ABG Chloride ABG Glucose Carboxyhemoglobin Sodium 134 L Potassium Chloride BUN 34 H Creatinine 1.7 H Glucose 224 H POC Glucose 224 H Calcium Phosphorus Magnesium AST ALT Total Creatine Kinase CK-MB (CK-2) Troponin T Total Protein Albumin HDL Cholesterol TSH Free T3 Index Arterial Blood Glucose Arterial Blood Ionized Calcium Urine pH Urine WBC (Auto) Urine Creatinine Acetaminophen Crossmatch Chest x-ray: report reviewed, image reviewed Additional Studies: XR chest 1V ap 05/19/21 INDICATION / CLINICAL INFORMATION: chest congestion/ eval for edema. COMPARISON: 05/10/2021 FINDINGS: SUPPORT DEVICES: Tracheostomy device is stable. HEART /PULMONARY VASCULATURE: Unchanged LUNGS / PLEURA: Patchy pulmonary airspace opacities persist within the right perihilar region and left lung base. No sizable pleural effusion. No pneumothorax. ADDITIONAL FINDINGS: No significant additional findings. IMPRESSION: Stable bibasilar pulmonary opacities, most likely reflects atelectasis/pneumonia, rather than pulmonary edema. Allied health notes reviewed: nursing
--- NOTE | 2021-05-21 15:05 | Progress Note ---
Assessment and Plan 1. Acute kidney injury: Vasomotor ROJELIO. ATN likely. Renal US negative for hydro. Baseline renal function is unknown. Monitor renal function. Non-oliguric. Creatinine level continue to improve. Avoid nephrotoxic agents. Meds dosage based on GFR. 2. FEN: Monitor lytes and volume status. 3. Acute hypoxemic respiratory failure: Extubated, re-intubated 04/24. Trached 05/07. On T-piece. 4. Acute encephalopathy: MRI brain negative. Seen by Neuro. 5. UTI: Treated. 6. Hypertension: Patient is on Amlodipine and Midodrine. 7. DM type 2. 8. Mild rhabdomyolysis: Improved. 9. Mildly complex R renal cyst: Further testing once patient is more stable. Explained patient's niece(05/18) at the bedside about follow up evaluation. Subjective: Patient was seen and examined at the bedside. Examination: General appearance: well-developed, appears stated age, trached on T-piece HEENT: atraumatic Neck: trached Respiratory: Coarse breath sounds heard Heart: S1S2, no murmur Abdomen: soft, obese, bowel sounds heard, NT, PEG tube noted Integumentary: no obvious rash Neurologic: opens eyes, able to move extremities Ext: no edema noted Subjective Date of service: 05/21/21 Principal diagnosis: Ac. resp failure; AMS; Hypoglycemia; ROJELIO; Hyperkalemia; DM II Objective - Vital Signs Vital signs: Vital Signs - 12hr 05/21/21 05/21/21 05/21/21 03:40 05:00 07:53 Temperature 98.8 F 98.6 F Pulse Rate 77 77 83 Respiratory 19 20 Rate Blood Pressure 146/60 148/61 O2 Sat by Pulse 97 100 Oximetry O2 Sat by Pulse Oximetry [ Assessment] 05/21/21 05/21/21 05/21/21 08:38 08:39 09:54 Temperature Pulse Rate Respiratory Rate Blood Pressure 151/57 O2 Sat by Pulse 98 Oximetry O2 Sat by Pulse 98 Oximetry [ Assessment] 05/21/21 05/21/21 11:33 14:58 Temperature 98.6 F Pulse Rate 75 Respiratory 20 Rate Blood Pressure 122/54 O2 Sat by Pulse 99 Oximetry O2 Sat by Pulse 99 Oximetry [ Assessment] - Lab 05/20/21 05:18 05/21/21 05:19 Most recent lab results ABG pH 7.417 (7.320-7.450) 05/17/21 21:04 ABG O2 Saturation 97.0 (0-100) 05/17/21 21:04 Calcium 9.9 mg/dL (8.4-10.2) 05/21/21 05:19 Phosphorus 2.60 mg/dL (2.5-4.5) 04/22/21 08:00 Magnesium 2.10 mg/dL (1.7-2.3) 04/23/21 07:02 Urine Creatinine 104.7 mg/dL (0.1-20.0) H 05/18/21 06:45 Urine Sodium 81 mmol/L 05/18/21 06:45 Medications & Allergies - Medications Allergies/Adverse Reactions: Allergies No Known Allergies Allergy (Unverified 04/15/21 17:41) Home Medications: Home Medications Medication Instructions Recorded Confirmed Last Taken Type Betaxolol HCl [Betoptic S 0.25% 1 drop OU BID 04/16/21 04/16/21 Unknown History SUSP] Bimatoprost [Lumigan 0.01%] 1 drop OU QPM 04/16/21 04/16/21 Unknown History Brimonidine Tartrate [Brimonidine 5 ml OU BID 04/16/21 04/16/21 Unknown History Tartrate 0.2%] Furosemide [Lasix TAB] 40 mg PO QDAY 04/16/21 04/16/21 Unknown History Gabapentin [Neurontin] 300 mg PO Q8HR 04/16/21 04/16/21 Unknown History HYDROcodone/APAP 10-325 [[place] 1 each PO Q6HR PRN 04/16/21 04/16/21 Unknown History 10/325] Hydralazine HCl 50 mg PO Q4HR 04/16/21 04/16/21 Unknown History Insulin Aspart Prot/Insuln Asp 52 units SQ HS 04/16/21 04/16/21 Unknown History [Novolog Mix 70-30 Flexpen] Metoprolol [Lopressor] 25 mg PO BID 04/16/21 04/16/21 Unknown History Pravastatin [Pravachol] 20 mg PO QHS 04/16/21 04/16/21 Unknown History Promethazine [Phenergan] 25 mg PO Q6HR 04/16/21 04/16/21 Unknown History allopurinoL [Zyloprim] 150 mg PO QDAY 04/16/21 04/16/21 Unknown History Active Medications: Generic Name Dose Route Start Last Admin Trade Name Freq PRN Reason Stop Dose Admin Acetaminophen 650 mg 04/15/21 19:11 05/17/21 12:33 Acetaminophen 325 Mg Tab PO 650 mg Q6H PRN Administration Pain MILD(1-3)/Fever >100.5/SEXTON Albuterol 2.5 mg 05/09/21 13:16 05/16/21 09:40 Albuterol 2.5 Mg/3 Ml Nebu IH 2.5 mg Q6HRT PRN Administration Shortness Of Breath Amlodipine Besylate 2.5 mg 05/18/21 10:00 05/21/21 09:54 Amlodipine 5 Mg Tab PO 2.5 mg QDAY [facility]OLFGANG Administration Lipase/Protease/Amylase 1 each 04/16/21 12:52 Lipase 10,500/Protease 25,000/Amylase 43,750 (Units) Dr Simpson FEEDTUBE PRN PRN For Clogged Feeding Tube Aspirin 81 mg 04/25/21 10:00 05/21/21 10:33 Aspirin 81 Mg Tab Chew PO 81 mg QDAY [facility]OLFGANG Administration Bisacodyl 10 mg 04/17/21 11:01 05/03/21 09:50 Bisacodyl 10 Mg Rect Supp [place] 10 mg QDAY PRN Administration Constipation Brimonidine Tartrate 1 drops 04/17/21 22:00 05/21/21 10:22 Brimonidine 0.15% Ophth Soln OU 1 drops BID WOLFGANG Administration Docusate Sodium 100 mg 04/29/21 15:00 05/21/21 10:33 Docusate Sodium 100 Mg/10 Ml Oral Liqd PO Not Given BID WOLFGANG Famotidine 20 mg 04/17/21 10:00 05/21/21 09:54 Famotidine 20 Mg Tab PO 20 mg DAILY W[facility]ANG Administration Glycopyrrolate 1 mg 05/17/21 20:00 05/21/21 09:54 Glycopyrrolate 1 Mg Tab PO 1 mg TID WOLFGANG Administration Heparin Sodium (Porcine) 5,000 unit 04/15/21 22:00 05/21/21 10:22 Heparin 5,000 Unit/1 Ml Vial SUB-Q 5,000 unit Q12HR [facility] Administration Hydralazine HCl 10 mg 04/16/21 18:00 05/20/21 23:43 Hydralazine 20 Mg/1 Ml Inj IV 10 mg Q4HR PRN Administration Hypertension Hydrophilic Ointment 1 applic 04/15/21 17:24 Lip Therapy Vaseline TP Q2HR PRN Dry Lips Insulin Human Isoph/Insulin Regular 25 unit 05/09/21 08:00 05/21/21 10:33 Insulin Nph/Regular 70/30 Inj SUB-Q 25 unit BIDDIAB [facility]OLFGANG Administration Insulin Human Lispro 0 unit 04/16/21 15:00 05/21/21 06:03 Insulin Lispro 100 Unit/Ml SUB-Q 4 unit Q6HR [facility] Administration Protocol Latanoprost 1 drops 04/17/21 18:00 05/20/21 17:35 Latanoprost 0.005% Ophth Soln 2.5 Ml OU 1 drops QPM WOLFGANG Administration Levothyroxine Sodium 25 mcg 04/19/21 06:00 05/21/21 06:13 Levothyroxine 25 Mcg Tab PO 25 mcg DAILY@0600 [facility] Administration Lorazepam 2 mg 05/13/21 09:30 Lorazepam 2 Mg/Ml Vial IV Q4H PRN Agitation Midodrine 5 mg 05/20/21 12:00 05/21/21 12:47 Midodrine 5 Mg Tab PO Not Given TID@0800,1200,1600 [facility] Multi-Ingred Cream/Lotion/Oil/Oint 1 applic 04/15/21 17:24 05/17/21 21:31 Mineral Oil/Petrolatum, White Ophth Oint 3.5 Gm OU 1 applic Q4HR PRN Administration Dry Eye(s) Pravastatin Sodium 20 mg 04/19/21 22:00 05/20/21 21:17 Pravastatin 20 Mg Tab PO 20 mg QHS [facility] Administration Scopolamine 1 each 04/20/21 18:00 05/20/21 10:36 Scopolamine Transdermal Patch 72 Hr TD 1 each Q3D [facility] Administration Simple Syrup 15 ml 04/16/21 12:52 Simple Syrup 15 Ml FEEDTUBE PRN PRN Hypoglycemia Simple Syrup 30 ml 04/16/21 12:52 Simple Syrup 15 Ml FEEDTUBE PRN PRN Hypoglycemia Sodium Bicarbonate 325 mg 04/16/21 12:52 Sodium Bicarbonate 325 Mg Tab FEEDTUBE PRN PRN For Clogged Feeding Tube Sodium Chloride 10 ml 04/15/21 22:00 05/21/21 10:20 Sodium Chloride 0.9% 10 Ml Flush Syringe IV 10 ml BID WOLFGANG Administration Sodium Chloride 10 ml 04/15/21 19:11 05/19/21 06:38 Sodium Chloride 0.9% 10 Ml Flush Syringe IV 10 ml PRN PRN Administration LINE FLUSH Tamsulosin HCl 0.4 mg 04/25/21 14:00 05/21/21 09:53 Tamsulosin 0.4 Mg Cap PO 0.4 mg QDAY [facility]OLFGANG Administration Timolol Maleate 1 drops 04/19/21 10:00 05/21/21 10:22 Timolol 0.5% Ophth Soln 5 Ml OU 1 drops QDAY WOLFGANG Administration
[2021-05-21] MEDS: LATANOPROST 0.005% OPHTH SOLN 2.5 ML OU SCH (18:52)
[2021-05-21] MEDS: PRAVASTATIN 20 MG TAB PO SCH (21:34)
[2021-05-22] MEDS: INSULIN LISPRO 100 UNIT/ML SUB-Q SCH ×3 (00:10→14:24)
[2021-05-22] MEDS: LEVOTHYROXINE 25 MCG TAB PO SCH (05:07)
[2021-05-22] MEDS: INSULIN NPH/REGULAR 70/30 INJ SUB-Q SCH ×2 (08:00→14:37)
[2021-05-22] MEDS: GLYCOPYRROLATE 1 MG TAB PO SCH ×3 (09:00→21:29)
--- NOTE | 2021-05-22 09:12 | Progress Note ---
Assessment and Plan 1. Acute kidney injury: Vasomotor ROJELIO. ATN likely. Renal US negative for hydro. Baseline renal function is unknown. Monitor renal function. Non-oliguric. Creatinine level continue to improve. Avoid nephrotoxic agents. Meds dosage based on GFR. No labs today. 2. FEN: Monitor lytes and volume status. 3. Acute hypoxemic respiratory failure: Extubated, re-intubated 04/24. Trached 05/07. On T-piece. 4. Acute encephalopathy: MRI brain negative. Seen by Neuro. 5. UTI: Treated. 6. Hypertension: Patient is on Amlodipine and Midodrine. Stop Midodrine. 7. DM type 2. 8. Mild rhabdomyolysis: Improved. 9. Mildly complex R renal cyst: Further testing once patient is more stable. Explained patient's niece(05/18) at the bedside about follow up evaluation. Subjective: Patient was seen and examined at the bedside. Fever today. Examination: General appearance: well-developed, appears stated age, trached on T-piece HEENT: atraumatic Neck: trached Respiratory: Coarse breath sounds heard Heart: S1S2, no murmur Abdomen: soft, obese, bowel sounds heard, NT, PEG tube noted Integumentary: no obvious rash Neurologic: opens eyes, able to move extremities Ext: no edema noted Subjective Date of service: 05/22/21 Principal diagnosis: Ac. resp failure; AMS; Hypoglycemia; ROJELIO; Hyperkalemia; DM II Objective - Vital Signs Vital signs: Vital Signs - 12hr 05/21/21 05/22/21 05/22/21 23:16 03:28 08:22 Temperature 98.9 F 99.8 F H 100.5 F H Pulse Rate 72 81 84 Respiratory 20 18 18 Rate Blood Pressure 145/61 141/56 114/42 O2 Sat by Pulse 100 100 100 Oximetry - Lab 05/20/21 05:18 05/21/21 05:19 Most recent lab results ABG pH 7.417 (7.320-7.450) 05/17/21 21:04 ABG O2 Saturation 97.0 (0-100) 05/17/21 21:04 Calcium 9.9 mg/dL (8.4-10.2) 05/21/21 05:19 Phosphorus 2.60 mg/dL (2.5-4.5) 04/22/21 08:00 Magnesium 2.10 mg/dL (1.7-2.3) 04/23/21 07:02 Urine Creatinine 104.7 mg/dL (0.1-20.0) H 05/18/21 06:45 Urine Sodium 81 mmol/L 05/18/21 06:45 Medications & Allergies - Medications Allergies/Adverse Reactions: Allergies No Known Allergies Allergy (Unverified 04/15/21 17:41) Home Medications: Home Medications Medication Instructions Recorded Confirmed Last Taken Type Betaxolol HCl [Betoptic S 0.25% 1 drop OU BID 04/16/21 04/16/21 Unknown History SUSP] Bimatoprost [Lumigan 0.01%] 1 drop OU QPM 04/16/21 04/16/21 Unknown History Brimonidine Tartrate [Brimonidine 5 ml OU BID 04/16/21 04/16/21 Unknown History Tartrate 0.2%] Furosemide [Lasix TAB] 40 mg PO QDAY 04/16/21 04/16/21 Unknown History Gabapentin [Neurontin] 300 mg PO Q8HR 04/16/21 04/16/21 Unknown History HYDROcodone/APAP 10-325 [[place] 1 each PO Q6HR PRN 04/16/21 04/16/21 Unknown History 10/325] Hydralazine HCl 50 mg PO Q4HR 04/16/21 04/16/21 Unknown History Insulin Aspart Prot/Insuln Asp 52 units SQ HS 04/16/21 04/16/21 Unknown History [Novolog Mix 70-30 Flexpen] Metoprolol [Lopressor] 25 mg PO BID 04/16/21 04/16/21 Unknown History Pravastatin [Pravachol] 20 mg PO QHS 04/16/21 04/16/21 Unknown History Promethazine [Phenergan] 25 mg PO Q6HR 04/16/21 04/16/21 Unknown History allopurinoL [Zyloprim] 150 mg PO QDAY 04/16/21 04/16/21 Unknown History Active Medications: Generic Name Dose Route Start Last Admin Trade Name Freq PRN Reason Stop Dose Admin Acetaminophen 650 mg 04/15/21 19:11 05/17/21 12:33 Acetaminophen 325 Mg Tab PO 650 mg Q6H PRN Administration Pain MILD(1-3)/Fever >100.5/SEXTON Albuterol 2.5 mg 05/09/21 13:16 05/16/21 09:40 Albuterol 2.5 Mg/3 Ml Nebu IH 2.5 mg Q6HRT PRN Administration Shortness Of Breath Amlodipine Besylate 2.5 mg 05/18/21 10:00 05/21/21 09:54 Amlodipine 5 Mg Tab PO 2.5 mg QDAY WOLFGANG Administration Lipase/Protease/Amylase 1 each 04/16/21 12:52 Lipase 10,500/Protease 25,000/Amylase 43,750 (Units) Dr Simpson FEEDTUBE PRN PRN For Clogged Feeding Tube Aspirin 81 mg 04/25/21 10:00 05/21/21 10:33 Aspirin 81 Mg Tab Chew PO 81 mg QDAY WOLFGANG Administration Bisacodyl 10 mg 04/17/21 11:01 05/03/21 09:50 Bisacodyl 10 Mg Rect Supp [place] 10 mg QDAY PRN Administration Constipation Brimonidine Tartrate 1 drops 04/17/21 22:00 05/21/21 21:35 Brimonidine 0.15% Ophth Soln OU 1 drops BID WOLFGANG Administration Docusate Sodium 100 mg 04/29/21 15:00 05/21/21 21:34 Docusate Sodium 100 Mg/10 Ml Oral Liqd PO 100 mg BID WOLFGANG Administration Famotidine 20 mg 04/17/21 10:00 05/21/21 09:54 Famotidine 20 Mg Tab PO 20 mg DAILY WOLFGANG Administration Glycopyrrolate 1 mg 05/17/21 20:00 05/21/21 21:33 Glycopyrrolate 1 Mg Tab PO 1 mg TID WOLFGANG Administration Heparin Sodium (Porcine) 5,000 unit 04/15/21 22:00 05/21/21 21:34 Heparin 5,000 Unit/1 Ml Vial SUB-Q 5,000 unit Q12HR [facility] Administration Hydralazine HCl 10 mg 04/16/21 18:00 05/20/21 23:43 Hydralazine 20 Mg/1 Ml Inj IV 10 mg Q4HR PRN Administration Hypertension Hydrophilic Ointment 1 applic 04/15/21 17:24 Lip Therapy Vaseline TP Q2HR PRN Dry Lips Insulin Human Isoph/Insulin Regular 25 unit 05/09/21 08:00 05/21/21 18:51 Insulin Nph/Regular 70/30 Inj SUB-Q 25 unit BIDDIAB [facility] Administration Insulin Human Lispro 0 unit 04/16/21 15:00 05/22/21 05:08 Insulin Lispro 100 Unit/Ml SUB-Q Not Given Q6HR [facility] Protocol Latanoprost 1 drops 04/17/21 18:00 05/21/21 18:52 Latanoprost 0.005% Ophth Soln 2.5 Ml OU 1 drops QPM [facility] Administration Levothyroxine Sodium 25 mcg 04/19/21 06:00 05/22/21 05:07 Levothyroxine 25 Mcg Tab PO 25 mcg DAILY@0600 [facility] Administration Lorazepam 2 mg 05/13/21 09:30 Lorazepam 2 Mg/Ml Vial IV Q4H PRN Agitation Midodrine 5 mg 05/20/21 12:00 05/21/21 18:41 Midodrine 5 Mg Tab PO Not Given TID@0800,1200,1600 [facility] Multi-Ingred Cream/Lotion/Oil/Oint 1 applic 04/15/21 17:24 05/17/21 21:31 Mineral Oil/Petrolatum, White Ophth Oint 3.5 Gm OU 1 applic Q4HR PRN Administration Dry Eye(s) Pravastatin Sodium 20 mg 04/19/21 22:00 05/21/21 21:34 Pravastatin 20 Mg Tab PO 20 mg QHS [facility] Administration Scopolamine 1 each 04/20/21 18:00 05/20/21 10:36 Scopolamine Transdermal Patch 72 Hr TD 1 each Q3D [facility] Administration Simple Syrup 15 ml 04/16/21 12:52 Simple Syrup 15 Ml FEEDTUBE PRN PRN Hypoglycemia Simple Syrup 30 ml 04/16/21 12:52 Simple Syrup 15 Ml FEEDTUBE PRN PRN Hypoglycemia Sodium Bicarbonate 325 mg 04/16/21 12:52 Sodium Bicarbonate 325 Mg Tab FEEDTUBE PRN PRN For Clogged Feeding Tube Sodium Chloride 10 ml 04/15/21 22:00 05/21/21 21:36 Sodium Chloride 0.9% 10 Ml Flush Syringe IV 10 ml BID [facility]OLFGANG Administration Sodium Chloride 10 ml 04/15/21 19:11 05/19/21 06:38 Sodium Chloride 0.9% 10 Ml Flush Syringe IV 10 ml PRN PRN Administration LINE FLUSH Tamsulosin HCl 0.4 mg 04/25/21 14:00 05/21/21 09:53 Tamsulosin 0.4 Mg Cap PO 0.4 mg QDAY [facility] Administration Timolol Maleate 1 drops 04/19/21 10:00 05/21/21 10:22 Timolol 0.5% Ophth Soln 5 Ml OU 1 drops QDAY [facility]OL[facility] Administration
--- NOTE | 2021-05-22 10:45 | Progress Note ---
Assessment and Plan This is a 80-year-old female with hypertension, diabetes mellitus, PA, breast cancer s/p double mastectomy, and a TIA who presented with hypoglycemia and altered mental status on 04/15 via EMS. Per EMS patient was unresponsive on their arrival and her blood glucose was 38 and she received 1 amp of dextrose patient continued to be unresponsive and only moaned with her eyes deviating to the left. Work-up in the emergency department revealed SIRS, symptomatic bradycardia, acute metabolic encephalopathy, acute hypoxic respiratory failure, elevated TSH, hyperglycemia, hyponatremia, hyperkalemia, acute kidney injury with ATN, and rhabdomyolysis. Patient transfered back to telemetry. Patient sleeping. Not responding to verbal stimuli. Patient S/P tracheostomy. Resting on T tube. FIO2 28%. O2 saturation 99%. Patient afebrile. No lekocytosis. Blood pressure 140/53. Chest xray done 05/19/21 reported Stable bibasilar pulmonary opacities, most likely reflects atelectasis/pneumonia, rather than pulmonary edema. Patient albuterol aerosol treatments, S/C Heparin and famotidine. - Patient Problems (1) Acute hypoxemic respiratory failure Current Visit: Yes Status: Acute Plan to address problem: Patient S/P tracheostomy, On T tube, FIO2 28% Albuterol aerosol treatments S/C Heparin Famotidine. (2) Acute kidney injury (ROJELIO) with acute tubular necrosis (ATN) Current Visit: Yes Status: Acute Plan to address problem: Management as per nephrology. (3) Acute metabolic encephalopathy due to hypoglycemia Current Visit: Yes Status: Acute Plan to address problem: Improved. Management as per primary care. (4) Ileus Current Visit: Yes Status: Acute Plan to address problem: Management as per primary care. (5) Non-STEMI (non-ST elevated myocardial infarction) Current Visit: Yes Status: Acute Plan to address problem: Management as per cardiology. (6) Status epilepticus Current Visit: Yes Status: Acute Plan to address problem: Management as per neurology. (7) Diabetes mellitus Current Visit: Yes Status: Chronic Plan to address problem: Management as per primary team. (8) Hypothyroidism Current Visit: Yes Status: Chronic Plan to address problem: Management as per primary care. Subjective Date of service: 05/22/21 Principal diagnosis: Ac. resp failure; AMS; Hypoglycemia; ROJELIO; Hyperkalemia; DM II Interval history: This is a 80-year-old female with hypertension, diabetes mellitus, PA, breast cancer s/p double mastectomy, and a TIA who presented with hypoglycemia and altered mental status on 04/15 via EMS. Per EMS patient was unresponsive on their arrival and her blood glucose was 38 and she received 1 amp of dextrose patient continued to be unresponsive and only moaned with her eyes deviating to the left. Work-up in the emergency department revealed SIRS, symptomatic bradycardia, acute metabolic encephalopathy, acute hypoxic respiratory failure, elevated TSH, hyperglycemia, hyponatremia, hyperkalemia, acute kidney injury with ATN, and rhabdomyolysis. Patient transfered back to telemetry. Patient sleeping. Not responding to verbal stimuli. Patient S/P tracheostomy. Resting on T tube. FIO2 28%. O2 saturation 99%. Patient afebrile. No lekocytosis. Blood pressure 140/53. Chest xray done 05/19/21 reported Stable bibasilar pulmonary opacities, most likely reflects atelectasis/pneumonia, rather than pulmonary edema. Patient albuterol aerosol treatments, S/C Heparin and famotidine. Objective Vital Signs - 12hr 05/21/21 05/22/21 05/22/21 23:16 03:28 08:22 Temperature 98.9 F 99.8 F H 100.5 F H Pulse Rate 72 81 84 Respiratory 20 18 18 Rate Blood Pressure 145/61 141/56 114/42 O2 Sat by Pulse 100 100 100 Oximetry O2 Sat by Pulse Oximetry [ Assessment] 05/22/21 09:59 Temperature Pulse Rate Respiratory Rate Blood Pressure O2 Sat by Pulse 99 Oximetry O2 Sat by Pulse 99 Oximetry [ Assessment] Constitutional: no acute distress, asleep Eyes: non-icteric ENT: oropharynx moist, oropharyngeal exudate pre, other (+ midline tracheostomy without bleeding stoma) Neck: supple, no lymphadenopathy, no JVD, other (large circumference) Effort: normal Ascultation: Bilateral: diminished breath sounds, rales, rhonchi (scant), other (mild stridorous sounds) Percussion: Bilateral: not dull Cardiovascular: regular rate and rhythm, other (S1,S2) Gastrointestinal: normoactive bowel sounds, hypoactive bowel sounds, non-tender, non-distended (protuberant), other (PEG in place) Integumentary: normal Extremities: no cyanosis, no edema, pulses normal, no ischemia or petechiae Neurologic: non-focal exam (tracks voice), pupils equal and round, other (generalized weakness) Psychiatric: other (falt affect) CBC and BMP: 05/22/21 19:04 05/22/21 14:10 ABG, PT/INR, D-dimer: ABG ABG pH 7.417 (7.320-7.450) 05/17/21 21:04 POC ABG pCO2 41.2 mmHg (32.0-48.0) 05/17/21 21:04 POC ABG pO2 88.3 mmHg (83-108) 05/17/21 21:04 POC ABG HCO3 25.9 05/17/21 21:04 ABG O2 Saturation 97.0 (0-100) 05/17/21 21:04 PT/INR, D-dimer PT 14.8 Sec. (12.2-14.9) 05/07/21 08:20 INR 1.11 (0.87-1.13) 05/07/21 08:20 Abnormal lab findings: Abnormal Labs 04/15/21 04/15/21 04/15/21 17:00 17:20 17:20 WBC 11.2 H RBC Hgb Hct 43.0 H MCV MCH RDW 15.3 H Plt Count Lymph % (Auto) 12.8 L [place] % (Auto) [place] # (Auto) Seg Neutrophils % 82.4 H Seg Neuts % (Manual) Lymphocytes % (Manual) Monocytes % (Manual) Seg Neutrophils # 9.3 H Seg Neutrophils # Man Lymphocytes # (Manual) Monocytes # (Manual) ABG pH POC ABG pCO2 POC ABG pO2 ABG Hemoglobin ABG Oxyhemoglobin ABG Sodium ABG Potassium ABG Chloride ABG Glucose Carboxyhemoglobin Sodium 129 L Potassium 7.1 H* Chloride 91.9 L BUN 35 H Creatinine 2.8 H Glucose POC Glucose 191 H Calcium Phosphorus Magnesium AST 69 H ALT Total Creatine Kinase CK-MB (CK-2) Troponin T Total Protein Albumin HDL Cholesterol TSH Free T3 Index Arterial Blood Glucose Arterial Blood Ionized Calcium Urine pH Urine WBC (Auto) Urine Creatinine Acetaminophen Crossmatch 04/15/21 04/15/21 04/15/21 17:20 17:20 17:20 WBC RBC Hgb Hct MCV MCH RDW Plt Count Lymph % (Auto) [place] % (Auto) [place] # (Auto) Seg Neutrophils % Seg Neuts % (Manual) Lymphocytes % (Manual) Monocytes % (Manual) Seg Neutrophils # Seg Neutrophils # Man Lymphocytes # (Manual) Monocytes # (Manual) ABG pH POC ABG pCO2 POC ABG pO2 ABG Hemoglobin ABG Oxyhemoglobin ABG Sodium ABG Potassium ABG Chloride ABG Glucose Carboxyhemoglobin Sodium Potassium Chloride BUN Creatinine Glucose POC Glucose Calcium Phosphorus Magnesium AST ALT Total Creatine Kinase 1000 H CK-MB (CK-2) Troponin T Total Protein Albumin HDL Cholesterol TSH 14.190 H Free T3 Index Arterial Blood Glucose Arterial Blood Ionized Calcium Urine pH Urine WBC (Auto) Urine Creatinine Acetaminophen 5.0 L Crossmatch 04/15/21 04/15/21 04/15/21 20:49 21:23 23:15 WBC RBC Hgb Hct MCV MCH RDW Plt Count Lymph % (Auto) [place] % (Auto) [place] # (Auto) Seg Neutrophils % Seg Neuts % (Manual) Lymphocytes % (Manual) Monocytes % (Manual) Seg Neutrophils # Seg Neutrophils # Man Lymphocytes # (Manual) Monocytes # (Manual) ABG pH 7.557 H POC ABG pCO2 30.0 L POC ABG pO2 493.3 H ABG Hemoglobin ABG Oxyhemoglobin 99.0 H ABG Sodium 131.5 L ABG Potassium 4.7 H ABG Chloride 94.0 L ABG Glucose 218 H Carboxyhemoglobin Sodium Potassium Chloride BUN Creatinine Glucose POC Glucose 173 H 207 H Calcium Phosphorus Magnesium AST ALT Total Creatine Kinase CK-MB (CK-2) Troponin T Total Protein Albumin HDL Cholesterol TSH Free T3 Index Arterial Blood Glucose 218 H Arterial Blood Ionized Calcium 5.4 H Urine pH Urine WBC (Auto) Urine Creatinine Acetaminophen Crossmatch 04/16/21 04/16/21 04/16/21 00:09 00:12 00:19 WBC RBC Hgb Hct MCV MCH RDW Plt Count Lymph % (Auto) [place] % (Auto) [place] # (Auto) Seg Neutrophils % Seg Neuts % (Manual) Lymphocytes % (Manual) Monocytes % (Manual) Seg Neutrophils # Seg Neutrophils # Man Lymphocytes # (Manual) Monocytes # (Manual) ABG pH POC ABG pCO2 POC ABG pO2 ABG Hemoglobin ABG Oxyhemoglobin ABG Sodium ABG Potassium ABG Chloride ABG Glucose Carboxyhemoglobin Sodium Potassium 6.7 H* Chloride BUN Creatinine Glucose POC Glucose Calcium Phosphorus Magnesium AST ALT Total Creatine Kinase CK-MB (CK-2) Troponin T Total Protein Albumin HDL Cholesterol TSH Free T3 Index Arterial Blood Glucose Arterial Blood Ionized Calcium Urine pH 9.0 H Urine WBC (Auto) Urine Creatinine 24.4 H Acetaminophen Crossmatch 04/16/21 04/16/21 04/16/21 03:43 03:55 05:02 WBC 21.2 H RBC Hgb Hct 43.4 H MCV 98 H MCH RDW Plt Count Lymph % (Auto) [place] % (Auto) [place] # (Auto) Seg Neutrophils % Seg Neuts % (Manual) 84.0 H Lymphocytes % (Manual) 2.0 L Monocytes % (Manual) 10.0 H Seg Neutrophils # Seg Neutrophils # Man 17.8 H Lymphocytes # (Manual) 0.4 L Monocytes # (Manual) 2.1 H ABG pH 7.461 H POC ABG pCO2 POC ABG pO2 ABG Hemoglobin ABG Oxyhemoglobin ABG Sodium 126.8 L ABG Potassium 5.4 H ABG Chloride 90.0 L ABG Glucose 325 H Carboxyhemoglobin Sodium Potassium Chloride BUN Creatinine Glucose POC Glucose 391 H Calcium Phosphorus Magnesium AST ALT Total Creatine Kinase CK-MB (CK-2) Troponin T Total Protein Albumin HDL Cholesterol TSH Free T3 Index Arterial Blood Glucose 325 H Arterial Blood Ionized Calcium Urine pH Urine WBC (Auto) Urine Creatinine Acetaminophen Crossmatch 04/16/21 04/16/21 04/16/21 05:02 11:34 16:09 WBC RBC Hgb Hct MCV MCH RDW Plt Count Lymph % (Auto) [place] % (Auto) [place] # (Auto) Seg Neutrophils % Seg Neuts % (Manual) Lymphocytes % (Manual) Monocytes % (Manual) Seg Neutrophils # Seg Neutrophils # Man Lymphocytes # (Manual) Monocytes # (Manual) ABG pH POC ABG pCO2 POC ABG pO2 ABG Hemoglobin ABG Oxyhemoglobin ABG Sodium ABG Potassium ABG Chloride ABG Glucose Carboxyhemoglobin Sodium 131 L Potassium 5.9 H Chloride 88.7 L BUN 34 H Creatinine 2.9 H Glucose 249 H POC Glucose 382 H 300 H Calcium 10.4 H Phosphorus Magnesium AST 65 H ALT Total Creatine Kinase CK-MB (CK-2) Troponin T Total Protein Albumin 3.8 L HDL Cholesterol TSH Free T3 Index Arterial Blood Glucose Arterial Blood Ionized Calcium Urine pH Urine WBC (Auto) Urine Creatinine Acetaminophen Crossmatch 05/04/16/21 04/16/21 18:15 19:01 19:01 WBC RBC Hgb Hct MCV MCH RDW Plt Count Lymph % (Auto) [place] % (Auto) [place] # (Auto) Seg Neutrophils % Seg Neuts % (Manual) Lymphocytes % (Manual) Monocytes % (Manual) Seg Neutrophils # Seg Neutrophils # Man Lymphocytes # (Manual) Monocytes # (Manual) ABG pH POC ABG pCO2 POC ABG pO2 ABG Hemoglobin ABG Oxyhemoglobin ABG Sodium ABG Potassium ABG Chloride ABG Glucose Carboxyhemoglobin Sodium 125 L Potassium 5.5 H Chloride 84.5 L BUN 37 H Creatinine 3.5 H Glucose 236 H POC Glucose 287 H Calcium Phosphorus Magnesium AST ALT Total Creatine Kinase CK-MB (CK-2) Troponin T Total Protein Albumin HDL Cholesterol TSH Free T3 Index 1.1 L Arterial Blood Glucose Arterial Blood Ionized Calcium Urine pH Urine WBC (Auto) Urine Creatinine Acetaminophen Crossmatch 04/16/21 04/16/21 04/17/21 19:01 23:48 03:09 WBC RBC Hgb Hct MCV MCH RDW Plt Count Lymph % (Auto) [place] % (Auto) [place] # (Auto) Seg Neutrophils % Seg Neuts % (Manual) Lymphocytes % (Manual) Monocytes % (Manual) Seg Neutrophils # Seg Neutrophils # Man Lymphocytes # (Manual) Monocytes # (Manual) ABG pH 7.518 H POC ABG pCO2 POC ABG pO2 ABG Hemoglobin ABG Oxyhemoglobin ABG Sodium 126.4 L ABG Potassium ABG Chloride 89.0 L ABG Glucose 200 H Carboxyhemoglobin Sodium Potassium 5.6 H Chloride BUN Creatinine Glucose POC Glucose 243 H Calcium Phosphorus Magnesium AST ALT Total Creatine Kinase CK-MB (CK-2) Troponin T Total Protein Albumin HDL Cholesterol TSH Free T3 Index Arterial Blood Glucose 200 H Arterial Blood Ionized Calcium 4.4 L Urine pH Urine WBC (Auto) Urine Creatinine Acetaminophen Crossmatch 04/17/21 04/17/21 04/17/21 05:04 06:14 11:55 WBC RBC Hgb Hct MCV MCH RDW Plt Count Lymph % (Auto) [place] % (Auto) [place] # (Auto) Seg Neutrophils % Seg Neuts % (Manual) Lymphocytes % (Manual) Monocytes % (Manual) Seg Neutrophils # Seg Neutrophils # Man Lymphocytes # (Manual) Monocytes # (Manual) ABG pH POC ABG pCO2 POC ABG pO2 ABG Hemoglobin ABG Oxyhemoglobin ABG Sodium ABG Potassium ABG Chloride ABG Glucose Carboxyhemoglobin Sodium 129 L Potassium Chloride 86.1 L BUN 39 H Creatinine 3.5 H Glucose 202 H POC Glucose 208 H 276 H Calcium Phosphorus Magnesium AST ALT Total Creatine Kinase 750 H CK-MB (CK-2) Troponin T 0.119 H* D Total Protein Albumin HDL Cholesterol 61 H TSH Free T3 Index Arterial Blood Glucose Arterial Blood Ionized Calcium Urine pH Urine WBC (Auto) Urine Creatinine Acetaminophen Crossmatch 04/17/21 04/17/21 04/17/21 15:35 15:35 17:07 WBC 17.1 H RBC Hgb Hct MCV MCH RDW Plt Count Lymph % (Auto) [place] % (Auto) [place] # (Auto) Seg Neutrophils % Seg Neuts % (Manual) Lymphocytes % (Manual) Monocytes % (Manual) Seg Neutrophils # Seg Neutrophils # Man Lymphocytes # (Manual) Monocytes # (Manual) ABG pH POC ABG pCO2 POC ABG pO2 ABG Hemoglobin ABG Oxyhemoglobin ABG Sodium ABG Potassium ABG Chloride ABG Glucose Carboxyhemoglobin Sodium Potassium Chloride BUN Creatinine Glucose POC Glucose 148 H Calcium Phosphorus Magnesium AST ALT Total Creatine Kinase 615 H CK-MB (CK-2) 9.1 H Troponin T Total Protein Albumin HDL Cholesterol TSH Free T3 Index Arterial Blood Glucose Arterial Blood Ionized Calcium Urine pH Urine WBC (Auto) Urine Creatinine Acetaminophen Crossmatch 04/18/21 04/18/21 04/18/21 00:01 03:00 05:24 WBC RBC Hgb Hct MCV MCH RDW Plt Count Lymph % (Auto) [place] % (Auto) [place] # (Auto) Seg Neutrophils % Seg Neuts % (Manual) Lymphocytes % (Manual) Monocytes % (Manual) Seg Neutrophils # Seg Neutrophils # Man Lymphocytes # (Manual) Monocytes # (Manual) ABG pH 7.497 H POC ABG pCO2 POC ABG pO2 77.7 L ABG Hemoglobin 10.4 L ABG Oxyhemoglobin ABG Sodium 129.7 L ABG Potassium 2.8 L ABG Chloride 92.0 L ABG Glucose 134 H Carboxyhemoglobin 0.3 L Sodium Potassium Chloride BUN Creatinine Glucose POC Glucose 192 H 162 H Calcium Phosphorus Magnesium AST ALT Total Creatine Kinase CK-MB (CK-2) Troponin T Total Protein Albumin HDL Cholesterol TSH Free T3 Index Arterial Blood Glucose 134 H Arterial Blood Ionized Calcium 4.3 L Urine pH Urine WBC (Auto) Urine Creatinine Acetaminophen Crossmatch 04/18/21 04/18/21 04/18/21 05:34 05:34 05:43 WBC 15.3 H RBC 3.34 L Hgb Hct MCV MCH RDW 15.3 H Plt Count Lymph % (Auto) [place] % (Auto) [place] # (Auto) Seg Neutrophils % Seg Neuts % (Manual) Lymphocytes % (Manual) Monocytes % (Manual) Seg Neutrophils # Seg Neutrophils # Man Lymphocytes # (Manual) Monocytes # (Manual) ABG pH POC ABG pCO2 POC ABG pO2 ABG Hemoglobin ABG Oxyhemoglobin ABG Sodium ABG Potassium ABG Chloride ABG Glucose Carboxyhemoglobin Sodium 134 L Potassium 3.0 L D Chloride 93.5 L BUN 42 H Creatinine 3.1 H Glucose 152 H POC Glucose Calcium Phosphorus Magnesium 1.40 L AST ALT Total Creatine Kinase 427 H CK-MB (CK-2) Troponin T 0.081 H D Total Protein Albumin HDL Cholesterol TSH Free T3 Index Arterial Blood Glucose Arterial Blood Ionized Calcium Urine pH Urine WBC (Auto) Urine Creatinine Acetaminophen Crossmatch 04/18/21 04/18/21 04/18/21 09:11 11:34 17:24 WBC RBC Hgb Hct MCV MCH RDW Plt Count Lymph % (Auto) [place] % (Auto) [place] # (Auto) Seg Neutrophils % Seg Neuts % (Manual) Lymphocytes % (Manual) Monocytes % (Manual) Seg Neutrophils # Seg Neutrophils # Man Lymphocytes # (Manual) Monocytes # (Manual) ABG pH POC ABG pCO2 POC ABG pO2 ABG Hemoglobin ABG Oxyhemoglobin ABG Sodium ABG Potassium ABG Chloride ABG Glucose Carboxyhemoglobin Sodium Potassium Chloride BUN Creatinine Glucose POC Glucose 170 H 151 H Calcium Phosphorus Magnesium AST ALT Total Creatine Kinase CK-MB (CK-2) Troponin T Total Protein Albumin HDL Cholesterol TSH Free T3 Index Arterial Blood Glucose Arterial Blood Ionized Calcium Urine pH Urine WBC (Auto) 34.0 H Urine Creatinine Acetaminophen Crossmatch 04/18/21 04/19/21 04/19/21 23:18 04:09 05:19 WBC RBC Hgb Hct MCV MCH RDW Plt Count Lymph % (Auto) [place] % (Auto) [place] # (Auto) Seg Neutrophils % Seg Neuts % (Manual) Lymphocytes % (Manual) Monocytes % (Manual) Seg Neutrophils # Seg Neutrophils # Man Lymphocytes # (Manual) Monocytes # (Manual) ABG pH 7.476 H POC ABG pCO2 POC ABG pO2 79.4 L ABG Hemoglobin 10.7 L ABG Oxyhemoglobin ABG Sodium 131.2 L ABG Potassium 2.8 L ABG Chloride 94.0 L ABG Glucose 209 H Carboxyhemoglobin 0.3 L Sodium Potassium Chloride BUN Creatinine Glucose POC Glucose 182 H 204 H Calcium Phosphorus Magnesium AST ALT Total Creatine Kinase CK-MB (CK-2) Troponin T Total Protein Albumin HDL Cholesterol TSH Free T3 Index Arterial Blood Glucose 209 H Arterial Blood Ionized Calcium Urine pH Urine WBC (Auto) Urine Creatinine Acetaminophen Crossmatch 04/19/21 04/19/21 04/19/21 07:30 07:30 10:35 WBC 14.8 H RBC 3.20 L Hgb Hct MCV 98 H MCH RDW Plt Count 137 L Lymph % (Auto) [place] % (Auto) [place] # (Auto) Seg Neutrophils % Seg Neuts % (Manual) Lymphocytes % (Manual) Monocytes % (Manual) Seg Neutrophils # Seg Neutrophils # Man Lymphocytes # (Manual) Monocytes # (Manual) ABG pH 7.464 H POC ABG pCO2 POC ABG pO2 81.8 L ABG Hemoglobin 10.8 L ABG Oxyhemoglobin ABG Sodium 129.6 L ABG Potassium ABG Chloride 95.0 L ABG Glucose 238 H Carboxyhemoglobin Sodium 133 L Potassium 2.8 L* Chloride 94.4 L BUN 43 H Creatinine 2.7 H Glucose 255 H POC Glucose Calcium 8.0 L Phosphorus Magnesium AST ALT Total Creatine Kinase CK-MB (CK-2) Troponin T 0.060 H D Total Protein Albumin HDL Cholesterol TSH Free T3 Index Arterial Blood Glucose 238 H Arterial Blood Ionized Calcium Urine pH Urine WBC (Auto) Urine Creatinine Acetaminophen Crossmatch 04/19/21 04/19/21 04/19/21 11:48 20:40 23:04 WBC RBC Hgb Hct MCV MCH RDW Plt Count Lymph % (Auto) [place] % (Auto) [place] # (Auto) Seg Neutrophils % Seg Neuts % (Manual) Lymphocytes % (Manual) Monocytes % (Manual) Seg Neutrophils # Seg Neutrophils # Man Lymphocytes # (Manual) Monocytes # (Manual) ABG pH POC ABG pCO2 POC ABG pO2 ABG Hemoglobin ABG Oxyhemoglobin ABG Sodium ABG Potassium ABG Chloride ABG Glucose Carboxyhemoglobin Sodium Potassium 3.4 L D Chloride BUN Creatinine Glucose POC Glucose 208 H 173 H Calcium Phosphorus Magnesium AST ALT Total Creatine Kinase CK-MB (CK-2) Troponin T Total Protein Albumin HDL Cholesterol TSH Free T3 Index Arterial Blood Glucose Arterial Blood Ionized Calcium Urine pH Urine WBC (Auto) Urine Creatinine Acetaminophen Crossmatch 04/20/21 04/20/21 04/20/21 02:56 03:32 03:32 WBC 13.2 H RBC 3.18 L Hgb Hct MCV MCH RDW Plt Count Lymph % (Auto) [place] % (Auto) [place] # (Auto) Seg Neutrophils % Seg Neuts % (Manual) Lymphocytes % (Manual) Monocytes % (Manual) Seg Neutrophils # Seg Neutrophils # Man Lymphocytes # (Manual) Monocytes # (Manual) ABG pH 7.526 H POC ABG pCO2 POC ABG pO2 ABG Hemoglobin 10.5 L ABG Oxyhemoglobin ABG Sodium 133.5 L ABG Potassium ABG Chloride ABG Glucose 157 H Carboxyhemoglobin 0.3 L Sodium 135 L Potassium Chloride 96.7 L BUN 40 H Creatinine 2.3 H Glucose 142 H POC Glucose Calcium Phosphorus Magnesium AST ALT Total Creatine Kinase CK-MB (CK-2) Troponin T 0.065 H Total Protein Albumin HDL Cholesterol TSH Free T3 Index Arterial Blood Glucose 157 H Arterial Blood Ionized Calcium Urine pH Urine WBC (Auto) Urine Creatinine Acetaminophen Crossmatch 04/20/21 04/20/21 04/20/21 03:46 05:42 11:50 WBC RBC Hgb Hct MCV MCH RDW Plt Count Lymph % (Auto) [place] % (Auto) [place] # (Auto) Seg Neutrophils % Seg Neuts % (Manual) Lymphocytes % (Manual) Monocytes % (Manual) Seg Neutrophils # Seg Neutrophils # Man Lymphocytes # (Manual) Monocytes # (Manual) ABG pH POC ABG pCO2 POC ABG pO2 ABG Hemoglobin ABG Oxyhemoglobin ABG Sodium ABG Potassium ABG Chloride ABG Glucose Carboxyhemoglobin Sodium Potassium Chloride BUN Creatinine Glucose POC Glucose 160 H 194 H Calcium Phosphorus 2.10 L Magnesium AST ALT Total Creatine Kinase CK-MB (CK-2) Troponin T Total Protein Albumin HDL Cholesterol TSH Free T3 Index Arterial Blood Glucose Arterial Blood Ionized Calcium Urine pH Urine WBC (Auto) Urine Creatinine Acetaminophen Crossmatch 04/20/21 04/20/21 04/21/21 17:09 23:18 05:26 WBC RBC Hgb Hct MCV MCH RDW Plt Count Lymph % (Auto) [place] % (Auto) [place] # (Auto) Seg Neutrophils % Seg Neuts % (Manual) Lymphocytes % (Manual) Monocytes % (Manual) Seg Neutrophils # Seg Neutrophils # Man Lymphocytes # (Manual) Monocytes # (Manual) ABG pH POC ABG pCO2 POC ABG pO2 ABG Hemoglobin ABG Oxyhemoglobin ABG Sodium ABG Potassium ABG Chloride ABG Glucose Carboxyhemoglobin Sodium Potassium Chloride BUN Creatinine Glucose POC Glucose 153 H 162 H 164 H Calcium Phosphorus Magnesium AST ALT Total Creatine Kinase CK-MB (CK-2) Troponin T Total Protein Albumin HDL Cholesterol TSH Free T3 Index Arterial Blood Glucose Arterial Blood Ionized Calcium Urine pH Urine WBC (Auto) Urine Creatinine Acetaminophen Crossmatch 04/21/21 04/21/21 04/21/21 05:51 05:51 12:12 WBC RBC 3.20 L Hgb Hct MCV 99 H MCH RDW 15.3 H Plt Count Lymph % (Auto) [place] % (Auto) [place] # (Auto) Seg Neutrophils % Seg Neuts % (Manual) Lymphocytes % (Manual) Monocytes % (Manual) Seg Neutrophils # Seg Neutrophils # Man Lymphocytes # (Manual) Monocytes # (Manual) ABG pH POC ABG pCO2 POC ABG pO2 ABG Hemoglobin ABG Oxyhemoglobin ABG Sodium ABG Potassium ABG Chloride ABG Glucose Carboxyhemoglobin Sodium Potassium Chloride 96.6 L BUN 42 H Creatinine 2.1 H Glucose 171 H POC Glucose 167 H Calcium Phosphorus Magnesium AST ALT Total Creatine Kinase CK-MB (CK-2) Troponin T Total Protein Albumin HDL Cholesterol TSH Free T3 Index Arterial Blood Glucose Arterial Blood Ionized Calcium Urine pH Urine WBC (Auto) Urine Creatinine Acetaminophen Crossmatch 04/21/21 04/21/21 04/22/21 17:13 23:42 05:29 WBC RBC Hgb Hct MCV MCH RDW Plt Count Lymph % (Auto) [place] % (Auto) [place] # (Auto) Seg Neutrophils % Seg Neuts % (Manual) Lymphocytes % (Manual) Monocytes % (Manual) Seg Neutrophils # Seg Neutrophils # Man Lymphocytes # (Manual) Monocytes # (Manual) ABG pH POC ABG pCO2 POC ABG pO2 ABG Hemoglobin ABG Oxyhemoglobin ABG Sodium ABG Potassium ABG Chloride ABG Glucose Carboxyhemoglobin Sodium Potassium Chloride BUN Creatinine Glucose POC Glucose 178 H 253 H 208 H Calcium Phosphorus Magnesium AST ALT Total Creatine Kinase CK-MB (CK-2) Troponin T Total Protein Albumin HDL Cholesterol TSH Free T3 Index Arterial Blood Glucose Arterial Blood Ionized Calcium Urine pH Urine WBC (Auto) Urine Creatinine Acetaminophen Crossmatch 04/22/21 04/22/21 04/22/21 08:00 08:00 12:06 WBC 12.9 H RBC Hgb Hct MCV MCH RDW Plt Count Lymph % (Auto) [place] % (Auto) [place] # (Auto) Seg Neutrophils % Seg Neuts % (Manual) Lymphocytes % (Manual) Monocytes % (Manual) Seg Neutrophils # Seg Neutrophils # Man Lymphocytes # (Manual) Monocytes # (Manual) ABG pH POC ABG pCO2 POC ABG pO2 ABG Hemoglobin ABG Oxyhemoglobin ABG Sodium ABG Potassium ABG Chloride ABG Glucose Carboxyhemoglobin Sodium Potassium Chloride BUN 47 H Creatinine 1.9 H Glucose 252 H POC Glucose 298 H Calcium Phosphorus Magnesium AST ALT Total Creatine Kinase CK-MB (CK-2) Troponin T Total Protein Albumin HDL Cholesterol TSH Free T3 Index Arterial Blood Glucose Arterial Blood Ionized Calcium Urine pH Urine WBC (Auto) Urine Creatinine Acetaminophen Crossmatch 04/22/21 04/22/21 04/23/21 17:34 23:01 05:08 WBC RBC Hgb Hct MCV MCH RDW Plt Count Lymph % (Auto) [place] % (Auto) [place] # (Auto) Seg Neutrophils % Seg Neuts % (Manual) Lymphocytes % (Manual) Monocytes % (Manual) Seg Neutrophils # Seg Neutrophils # Man Lymphocytes # (Manual) Monocytes # (Manual) ABG pH POC ABG pCO2 POC ABG pO2 ABG Hemoglobin ABG Oxyhemoglobin ABG Sodium ABG Potassium ABG Chloride ABG Glucose Carboxyhemoglobin Sodium Potassium Chloride BUN Creatinine Glucose POC Glucose 259 H 280 H 223 H Calcium Phosphorus Magnesium AST ALT Total Creatine Kinase CK-MB (CK-2) Troponin T Total Protein Albumin HDL Cholesterol TSH Free T3 Index Arterial Blood Glucose Arterial Blood Ionized Calcium Urine pH Urine WBC (Auto) Urine Creatinine Acetaminophen Crossmatch 04/23/21 04/23/21 04/23/21 07:02 11:57 17:33 WBC RBC Hgb Hct MCV MCH RDW Plt Count Lymph % (Auto) [place] % (Auto) [place] # (Auto) Seg Neutrophils % Seg Neuts % (Manual) Lymphocytes % (Manual) Monocytes % (Manual) Seg Neutrophils # Seg Neutrophils # Man Lymphocytes # (Manual) Monocytes # (Manual) ABG pH POC ABG pCO2 POC ABG pO2 ABG Hemoglobin ABG Oxyhemoglobin ABG Sodium ABG Potassium ABG Chloride ABG Glucose Carboxyhemoglobin Sodium Potassium Chloride 97.7 L BUN 57 H Creatinine 2.0 H Glucose 253 H POC Glucose 310 H 235 H Calcium Phosphorus Magnesium AST ALT Total Creatine Kinase CK-MB (CK-2) Troponin T Total Protein Albumin HDL Cholesterol TSH Free T3 Index Arterial Blood Glucose Arterial Blood Ionized Calcium Urine pH Urine WBC (Auto) Urine Creatinine Acetaminophen Crossmatch 04/23/21 04/24/21 04/24/21 23:15 05:23 05:46 WBC RBC Hgb Hct MCV MCH RDW Plt Count Lymph % (Auto) [place] % (Auto) [place] # (Auto) Seg Neutrophils % Seg Neuts % (Manual) Lymphocytes % (Manual) Monocytes % (Manual) Seg Neutrophils # Seg Neutrophils # Man Lymphocytes # (Manual) Monocytes # (Manual) ABG pH POC ABG pCO2 POC ABG pO2 ABG Hemoglobin ABG Oxyhemoglobin ABG Sodium ABG Potassium ABG Chloride ABG Glucose Carboxyhemoglobin Sodium Potassium 5.2 H D Chloride BUN 68 H Creatinine 2.3 H Glucose 277 H POC Glucose 197 H 274 H Calcium Phosphorus Magnesium AST ALT Total Creatine Kinase CK-MB (CK-2) Troponin T Total Protein Albumin HDL Cholesterol TSH Free T3 Index Arterial Blood Glucose Arterial Blood Ionized Calcium Urine pH Urine WBC (Auto) Urine Creatinine Acetaminophen Crossmatch 04/24/21 04/24/21 04/24/21 11:33 11:52 17:49 WBC RBC Hgb Hct MCV MCH RDW Plt Count Lymph % (Auto) [place] % (Auto) [place] # (Auto) Seg Neutrophils % Seg Neuts % (Manual) Lymphocytes % (Manual) Monocytes % (Manual) Seg Neutrophils # Seg Neutrophils # Man Lymphocytes # (Manual) Monocytes # (Manual) ABG pH POC ABG pCO2 POC ABG pO2 72.7 L ABG Hemoglobin 11.6 L ABG Oxyhemoglobin 92.9 L ABG Sodium ABG Potassium ABG Chloride ABG Glucose 269 H Carboxyhemoglobin Sodium Potassium Chloride BUN Creatinine Glucose POC Glucose 223 H 252 H Calcium Phosphorus Magnesium AST ALT Total Creatine Kinase CK-MB (CK-2) Troponin T Total Protein Albumin HDL Cholesterol TSH Free T3 Index Arterial Blood Glucose 269 H Arterial Blood Ionized Calcium Urine pH Urine WBC (Auto) Urine Creatinine Acetaminophen Crossmatch 04/24/21 04/24/21 04/25/21 21:00 23:48 03:06 WBC RBC Hgb Hct MCV MCH RDW Plt Count Lymph % (Auto) [place] % (Auto) [place] # (Auto) Seg Neutrophils % Seg Neuts % (Manual) Lymphocytes % (Manual) Monocytes % (Manual) Seg Neutrophils # Seg Neutrophils # Man Lymphocytes # (Manual) Monocytes # (Manual) ABG pH 7.521 H 7.451 H POC ABG pCO2 POC ABG pO2 80.7 L 77.1 L ABG Hemoglobin 10.4 L 11.2 L ABG Oxyhemoglobin ABG Sodium ABG Potassium ABG Chloride ABG Glucose 186 H 165 H Carboxyhemoglobin 0 L Sodium Potassium Chloride BUN Creatinine Glucose POC Glucose 141 H Calcium Phosphorus Magnesium AST ALT Total Creatine Kinase CK-MB (CK-2) Troponin T Total Protein Albumin HDL Cholesterol TSH Free T3 Index Arterial Blood Glucose 186 H 165 H Arterial Blood Ionized Calcium Urine pH Urine WBC (Auto) Urine Creatinine Acetaminophen Crossmatch 04/25/21 04/25/21 04/25/21 03:56 03:56 06:03 WBC 12.3 H RBC 3.40 L Hgb Hct MCV MCH RDW Plt Count Lymph % (Auto) [place] % (Auto) [place] # (Auto) Seg Neutrophils % Seg Neuts % (Manual) Lymphocytes % (Manual) Monocytes % (Manual) Seg Neutrophils # Seg Neutrophils # Man Lymphocytes # (Manual) Monocytes # (Manual) ABG pH POC ABG pCO2 POC ABG pO2 ABG Hemoglobin ABG Oxyhemoglobin ABG Sodium ABG Potassium ABG Chloride ABG Glucose Carboxyhemoglobin Sodium Potassium Chloride BUN 78 H Creatinine 2.5 H Glucose 152 H POC Glucose 171 H Calcium Phosphorus Magnesium AST ALT Total Creatine Kinase CK-MB (CK-2) Troponin T Total Protein Albumin HDL Cholesterol TSH Free T3 Index Arterial Blood Glucose Arterial Blood Ionized Calcium Urine pH Urine WBC (Auto) Urine Creatinine Acetaminophen Crossmatch 04/25/21 04/25/21 04/26/21 11:43 15:37 00:05 WBC RBC Hgb Hct MCV MCH RDW Plt Count Lymph % (Auto) [place] % (Auto) [place] # (Auto) Seg Neutrophils % Seg Neuts % (Manual) Lymphocytes % (Manual) Monocytes % (Manual) Seg Neutrophils # Seg Neutrophils # Man Lymphocytes # (Manual) Monocytes # (Manual) ABG pH POC ABG pCO2 POC ABG pO2 ABG Hemoglobin ABG Oxyhemoglobin ABG Sodium ABG Potassium ABG Chloride ABG Glucose Carboxyhemoglobin Sodium Potassium Chloride BUN Creatinine Glucose POC Glucose 181 H 167 H 144 H Calcium Phosphorus Magnesium AST ALT Total Creatine Kinase CK-MB (CK-2) Troponin T Total Protein Albumin HDL Cholesterol TSH Free T3 Index Arterial Blood Glucose Arterial Blood Ionized Calcium Urine pH Urine WBC (Auto) Urine Creatinine Acetaminophen Crossmatch 04/26/21 04/26/21 04/26/21 04:30 05:44 09:30 WBC RBC Hgb Hct MCV MCH RDW Plt Count Lymph % (Auto) [place] % (Auto) [place] # (Auto) Seg Neutrophils % Seg Neuts % (Manual) Lymphocytes % (Manual) Monocytes % (Manual) Seg Neutrophils # Seg Neutrophils # Man Lymphocytes # (Manual) Monocytes # (Manual) ABG pH 7.529 H POC ABG pCO2 POC ABG pO2 66.1 L ABG Hemoglobin 11.2 L ABG Oxyhemoglobin 92.8 L ABG Sodium ABG Potassium ABG Chloride ABG Glucose 216 H Carboxyhemoglobin 0.3 L Sodium Potassium Chloride BUN 82 H Creatinine 2.7 H Glucose 238 H POC Glucose 202 H Calcium Phosphorus Magnesium AST ALT Total Creatine Kinase CK-MB (CK-2) Troponin T Total Protein Albumin HDL Cholesterol TSH Free T3 Index Arterial Blood Glucose 216 H Arterial Blood Ionized Calcium Urine pH Urine WBC (Auto) Urine Creatinine Acetaminophen Crossmatch 04/26/21 04/26/21 04/26/21 09:30 11:32 17:21 WBC 24.7 H RBC 3.32 L Hgb Hct MCV MCH RDW Plt Count Lymph % (Auto) [place] % (Auto) [place] # (Auto) Seg Neutrophils % Seg Neuts % (Manual) Lymphocytes % (Manual) Monocytes % (Manual) Seg Neutrophils # Seg Neutrophils # Man Lymphocytes # (Manual) Monocytes # (Manual) ABG pH POC ABG pCO2 POC ABG pO2 ABG Hemoglobin ABG Oxyhemoglobin ABG Sodium ABG Potassium ABG Chloride ABG Glucose Carboxyhemoglobin Sodium Potassium Chloride BUN Creatinine Glucose POC Glucose 245 H 264 H Calcium Phosphorus Magnesium AST ALT Total Creatine Kinase CK-MB (CK-2) Troponin T Total Protein Albumin HDL Cholesterol TSH Free T3 Index Arterial Blood Glucose Arterial Blood Ionized Calcium Urine pH Urine WBC (Auto) Urine Creatinine Acetaminophen Crossmatch 04/26/21 04/27/21 04/27/21 23:18 04:23 04:54 WBC RBC Hgb Hct MCV MCH RDW Plt Count Lymph % (Auto) [place] % (Auto) [place] # (Auto) Seg Neutrophils % Seg Neuts % (Manual) Lymphocytes % (Manual) Monocytes % (Manual) Seg Neutrophils # Seg Neutrophils # Man Lymphocytes # (Manual) Monocytes # (Manual) ABG pH 7.549 H POC ABG pCO2 30.0 L POC ABG pO2 64.9 L ABG Hemoglobin 11 L ABG Oxyhemoglobin 93.3 L ABG Sodium ABG Potassium ABG Chloride ABG Glucose 325 H Carboxyhemoglobin 0.3 L Sodium Potassium Chloride BUN Creatinine Glucose POC Glucose 201 H 298 H Calcium Phosphorus Magnesium AST ALT Total Creatine Kinase CK-MB (CK-2) Troponin T Total Protein Albumin HDL Cholesterol TSH Free T3 Index Arterial Blood Glucose 325 H Arterial Blood Ionized Calcium Urine pH Urine WBC (Auto) Urine Creatinine Acetaminophen Crossmatch 04/27/21 04/27/21 04/27/21 07:52 07:52 11:22 WBC 23.0 H RBC 3.32 L Hgb Hct MCV MCH RDW 15.5 H Plt Count Lymph % (Auto) [place] % (Auto) [place] # (Auto) Seg Neutrophils % Seg Neuts % (Manual) Lymphocytes % (Manual) Monocytes % (Manual) Seg Neutrophils # Seg Neutrophils # Man Lymphocytes # (Manual) Monocytes # (Manual) ABG pH POC ABG pCO2 POC ABG pO2 ABG Hemoglobin ABG Oxyhemoglobin ABG Sodium ABG Potassium ABG Chloride ABG Glucose Carboxyhemoglobin Sodium Potassium 3.5 L Chloride BUN 90 H Creatinine 2.8 H Glucose 286 H POC Glucose 251 H Calcium Phosphorus Magnesium AST ALT Total Creatine Kinase CK-MB (CK-2) Troponin T Total Protein Albumin HDL Cholesterol TSH Free T3 Index Arterial Blood Glucose Arterial Blood Ionized Calcium Urine pH Urine WBC (Auto) Urine Creatinine Acetaminophen Crossmatch 04/27/21 04/27/21 04/27/21 17:21 17:45 23:05 WBC RBC Hgb Hct MCV MCH RDW Plt Count Lymph % (Auto) [place] % (Auto) [place] # (Auto) Seg Neutrophils % Seg Neuts % (Manual) Lymphocytes % (Manual) Monocytes % (Manual) Seg Neutrophils # Seg Neutrophils # Man Lymphocytes # (Manual) Monocytes # (Manual) ABG pH POC ABG pCO2 POC ABG pO2 ABG Hemoglobin ABG Oxyhemoglobin ABG Sodium ABG Potassium ABG Chloride ABG Glucose Carboxyhemoglobin Sodium Potassium Chloride BUN Creatinine Glucose POC Glucose 180 H 178 H 189 H Calcium Phosphorus Magnesium AST ALT Total Creatine Kinase CK-MB (CK-2) Troponin T Total Protein Albumin HDL Cholesterol TSH Free T3 Index Arterial Blood Glucose Arterial Blood Ionized Calcium Urine pH Urine WBC (Auto) Urine Creatinine Acetaminophen Crossmatch 04/28/21 04/28/21 04/28/21 03:14 04:13 04:13 WBC 17.6 H RBC 3.03 L Hgb 9.7 L Hct 29.5 L MCV MCH RDW Plt Count Lymph % (Auto) [place] % (Auto) [place] # (Auto) Seg Neutrophils % Seg Neuts % (Manual) Lymphocytes % (Manual) Monocytes % (Manual) Seg Neutrophils # Seg Neutrophils # Man Lymphocytes # (Manual) Monocytes # (Manual) ABG pH 7.507 H POC ABG pCO2 POC ABG pO2 62.0 L ABG Hemoglobin 10.2 L ABG Oxyhemoglobin 91.9 L ABG Sodium ABG Potassium ABG Chloride ABG Glucose 337 H Carboxyhemoglobin 0.2 L Sodium Potassium Chloride BUN 101 H Creatinine 3.1 H Glucose 304 H POC Glucose Calcium Phosphorus Magnesium AST 61 H ALT 64 H Total Creatine Kinase CK-MB (CK-2) Troponin T Total Protein 6.2 L Albumin 2.6 L HDL Cholesterol TSH Free T3 Index Arterial Blood Glucose 337 H Arterial Blood Ionized Calcium Urine pH Urine WBC (Auto) Urine Creatinine Acetaminophen Crossmatch 04/28/21 04/28/21 04/28/21 05:01 11:28 18:23 WBC RBC Hgb Hct MCV MCH RDW Plt Count Lymph % (Auto) [place] % (Auto) [place] # (Auto) Seg Neutrophils % Seg Neuts % (Manual) Lymphocytes % (Manual) Monocytes % (Manual) Seg Neutrophils # Seg Neutrophils # Man Lymphocytes # (Manual) Monocytes # (Manual) ABG pH POC ABG pCO2 POC ABG pO2 ABG Hemoglobin ABG Oxyhemoglobin ABG Sodium ABG Potassium ABG Chloride ABG Glucose Carboxyhemoglobin Sodium Potassium Chloride BUN Creatinine Glucose POC Glucose 282 H 263 H 200 H Calcium Phosphorus Magnesium AST ALT Total Creatine Kinase CK-MB (CK-2) Troponin T Total Protein Albumin HDL Cholesterol TSH Free T3 Index Arterial Blood Glucose Arterial Blood Ionized Calcium Urine pH Urine WBC (Auto) Urine Creatinine Acetaminophen Crossmatch 04/28/21 04/29/21 04/29/21 23:49 03:24 04:22 WBC RBC Hgb Hct MCV MCH RDW Plt Count Lymph % (Auto) [place] % (Auto) [place] # (Auto) Seg Neutrophils % Seg Neuts % (Manual) Lymphocytes % (Manual) Monocytes % (Manual) Seg Neutrophils # Seg Neutrophils # Man Lymphocytes # (Manual) Monocytes # (Manual) ABG pH 7.546 H POC ABG pCO2 POC ABG pO2 52.4 L ABG Hemoglobin 10.5 L ABG Oxyhemoglobin 88.3 L ABG Sodium ABG Potassium ABG Chloride ABG Glucose 217 H Carboxyhemoglobin 0.4 L Sodium 148 H Potassium Chloride BUN 110 H Creatinine 3.1 H Glucose 208 H POC Glucose 238 H Calcium Phosphorus Magnesium AST ALT Total Creatine Kinase CK-MB (CK-2) Troponin T Total Protein Albumin HDL Cholesterol TSH Free T3 Index Arterial Blood Glucose 217 H Arterial Blood Ionized Calcium Urine pH Urine WBC (Auto) Urine Creatinine Acetaminophen Crossmatch 04/29/21 04/29/21 04/29/21 04:22 05:08 11:26 WBC 15.2 H RBC 3.30 L Hgb 9.8 L Hct MCV MCH RDW Plt Count Lymph % (Auto) [place] % (Auto) [place] # (Auto) Seg Neutrophils % Seg Neuts % (Manual) Lymphocytes % (Manual) Monocytes % (Manual) Seg Neutrophils # Seg Neutrophils # Man Lymphocytes # (Manual) Monocytes # (Manual) ABG pH POC ABG pCO2 POC ABG pO2 ABG Hemoglobin ABG Oxyhemoglobin ABG Sodium ABG Potassium ABG Chloride ABG Glucose Carboxyhemoglobin Sodium Potassium Chloride BUN Creatinine Glucose POC Glucose 181 H 218 H Calcium Phosphorus Magnesium AST ALT Total Creatine Kinase CK-MB (CK-2) Troponin T Total Protein Albumin HDL Cholesterol TSH Free T3 Index Arterial Blood Glucose Arterial Blood Ionized Calcium Urine pH Urine WBC (Auto) Urine Creatinine Acetaminophen Crossmatch 04/29/21 04/29/21 04/30/21 17:06 23:06 03:58 WBC RBC Hgb Hct MCV MCH RDW Plt Count Lymph % (Auto) [place] % (Auto) [place] # (Auto) Seg Neutrophils % Seg Neuts % (Manual) Lymphocytes % (Manual) Monocytes % (Manual) Seg Neutrophils # Seg Neutrophils # Man Lymphocytes # (Manual) Monocytes # (Manual) ABG pH 7.547 H POC ABG pCO2 31.3 L POC ABG pO2 58.4 L ABG Hemoglobin 9.6 L ABG Oxyhemoglobin 91.1 L ABG Sodium ABG Potassium ABG Chloride 108.0 H ABG Glucose 248 H Carboxyhemoglobin 0.2 L Sodium Potassium Chloride BUN Creatinine Glucose POC Glucose 223 H 252 H Calcium Phosphorus Magnesium AST ALT Total Creatine Kinase CK-MB (CK-2) Troponin T Total Protein Albumin HDL Cholesterol TSH Free T3 Index Arterial Blood Glucose 248 H Arterial Blood Ionized Calcium Urine pH Urine WBC (Auto) Urine Creatinine Acetaminophen Crossmatch 04/30/21 04/30/21 04/30/21 05:23 05:54 11:47 WBC RBC Hgb Hct MCV MCH RDW Plt Count Lymph % (Auto) [place] % (Auto) [place] # (Auto) Seg Neutrophils % Seg Neuts % (Manual) Lymphocytes % (Manual) Monocytes % (Manual) Seg Neutrophils # Seg Neutrophils # Man Lymphocytes # (Manual) Monocytes # (Manual) ABG pH POC ABG pCO2 POC ABG pO2 ABG Hemoglobin ABG Oxyhemoglobin ABG Sodium ABG Potassium ABG Chloride ABG Glucose Carboxyhemoglobin Sodium Potassium Chloride BUN 118 H Creatinine 3.3 H Glucose 263 H POC Glucose 244 H 237 H Calcium Phosphorus Magnesium AST ALT Total Creatine Kinase CK-MB (CK-2) Troponin T Total Protein Albumin HDL Cholesterol TSH Free T3 Index Arterial Blood Glucose Arterial Blood Ionized Calcium Urine pH Urine WBC (Auto) Urine Creatinine Acetaminophen Crossmatch 04/30/21 04/30/21 04/30/21 17:26 17:45 23:51 WBC RBC Hgb Hct MCV MCH RDW Plt Count Lymph % (Auto) [place] % (Auto) [place] # (Auto) Seg Neutrophils % Seg Neuts % (Manual) Lymphocytes % (Manual) Monocytes % (Manual) Seg Neutrophils # Seg Neutrophils # Man Lymphocytes # (Manual) Monocytes # (Manual) ABG pH POC ABG pCO2 POC ABG pO2 ABG Hemoglobin ABG Oxyhemoglobin ABG Sodium ABG Potassium ABG Chloride ABG Glucose Carboxyhemoglobin Sodium Potassium Chloride BUN Creatinine Glucose POC Glucose 193 H 197 H Calcium Phosphorus Magnesium AST ALT Total Creatine Kinase CK-MB (CK-2) Troponin T Total Protein Albumin HDL Cholesterol TSH Free T3 Index Arterial Blood Glucose Arterial Blood Ionized Calcium Urine pH Urine WBC (Auto) 48.0 H Urine Creatinine Acetaminophen Crossmatch 05/01/21 05/01/21 05/01/21 04:02 04:57 07:11 WBC 12.3 H RBC 2.83 L Hgb 8.8 L Hct 27.3 L MCV MCH RDW Plt Count Lymph % (Auto) [place] % (Auto) [place] # (Auto) Seg Neutrophils % Seg Neuts % (Manual) 80.0 H Lymphocytes % (Manual) 5.0 L Monocytes % (Manual) Seg Neutrophils # Seg Neutrophils # Man 9.8 H Lymphocytes # (Manual) 0.6 L Monocytes # (Manual) ABG pH 7.466 H POC ABG pCO2 POC ABG pO2 61.4 L ABG Hemoglobin 9.0 L ABG Oxyhemoglobin 91.1 L ABG Sodium ABG Potassium ABG Chloride 110.0 H ABG Glucose 245 H Carboxyhemoglobin Sodium Potassium Chloride BUN Creatinine Glucose POC Glucose 193 H Calcium Phosphorus Magnesium AST ALT Total Creatine Kinase CK-MB (CK-2) Troponin T Total Protein Albumin HDL Cholesterol TSH Free T3 Index Arterial Blood Glucose 245 H Arterial Blood Ionized Calcium Urine pH Urine WBC (Auto) Urine Creatinine Acetaminophen Crossmatch 05/01/21 05/01/21 05/01/21 07:11 07:45 11:30 WBC RBC Hgb Hct MCV MCH RDW Plt Count Lymph % (Auto) [place] % (Auto) [place] # (Auto) Seg Neutrophils % Seg Neuts % (Manual) Lymphocytes % (Manual) Monocytes % (Manual) Seg Neutrophils # Seg Neutrophils # Man Lymphocytes # (Manual) Monocytes # (Manual) ABG pH POC ABG pCO2 POC ABG pO2 ABG Hemoglobin ABG Oxyhemoglobin ABG Sodium ABG Potassium ABG Chloride ABG Glucose Carboxyhemoglobin Sodium 146 H Potassium Chloride 108.4 H BUN 122 H Creatinine 3.4 H Glucose 235 H POC Glucose 212 H 247 H Calcium Phosphorus Magnesium AST ALT Total Creatine Kinase CK-MB (CK-2) Troponin T Total Protein Albumin HDL Cholesterol TSH Free T3 Index Arterial Blood Glucose Arterial Blood Ionized Calcium Urine pH Urine WBC (Auto) Urine Creatinine Acetaminophen Crossmatch 05/01/21 05/01/21 05/01/21 11:31 17:42 23:49 WBC RBC Hgb Hct MCV MCH RDW Plt Count Lymph % (Auto) [place] % (Auto) [place] # (Auto) Seg Neutrophils % Seg Neuts % (Manual) Lymphocytes % (Manual) Monocytes % (Manual) Seg Neutrophils # Seg Neutrophils # Man Lymphocytes # (Manual) Monocytes # (Manual) ABG pH POC ABG pCO2 POC ABG pO2 ABG Hemoglobin ABG Oxyhemoglobin ABG Sodium ABG Potassium ABG Chloride ABG Glucose Carboxyhemoglobin Sodium Potassium Chloride BUN Creatinine Glucose POC Glucose 258 H 171 H 167 H Calcium Phosphorus Magnesium AST ALT Total Creatine Kinase CK-MB (CK-2) Troponin T Total Protein Albumin HDL Cholesterol TSH Free T3 Index Arterial Blood Glucose Arterial Blood Ionized Calcium Urine pH Urine WBC (Auto) Urine Creatinine Acetaminophen Crossmatch 05/02/21 05/02/21 05/02/21 05:12 08:34 11:53 WBC RBC Hgb Hct MCV MCH RDW Plt Count Lymph % (Auto) [place] % (Auto) [place] # (Auto) Seg Neutrophils % Seg Neuts % (Manual) Lymphocytes % (Manual) Monocytes % (Manual) Seg Neutrophils # Seg Neutrophils # Man Lymphocytes # (Manual) Monocytes # (Manual) ABG pH POC ABG pCO2 POC ABG pO2 ABG Hemoglobin ABG Oxyhemoglobin ABG Sodium ABG Potassium ABG Chloride ABG Glucose Carboxyhemoglobin Sodium 148 H Potassium Chloride 110.4 H BUN 124 H Creatinine 3.4 H Glucose 208 H POC Glucose 163 H 185 H Calcium 8.3 L Phosphorus Magnesium AST ALT Total Creatine Kinase CK-MB (CK-2) Troponin T Total Protein Albumin HDL Cholesterol TSH Free T3 Index Arterial Blood Glucose Arterial Blood Ionized Calcium Urine pH Urine WBC (Auto) Urine Creatinine Acetaminophen Crossmatch 05/02/21 05/02/21 05/03/21 17:28 23:32 03:57 WBC RBC Hgb Hct MCV MCH RDW Plt Count Lymph % (Auto) [place] % (Auto) [place] # (Auto) Seg Neutrophils % Seg Neuts % (Manual) Lymphocytes % (Manual) Monocytes % (Manual) Seg Neutrophils # Seg Neutrophils # Man Lymphocytes # (Manual) Monocytes # (Manual) ABG pH 7.531 H POC ABG pCO2 31.0 L POC ABG pO2 64.3 L ABG Hemoglobin 9.0 L ABG Oxyhemoglobin 92.6 L ABG Sodium 145.7 H ABG Potassium ABG Chloride 112.0 H ABG Glucose 202 H Carboxyhemoglobin Sodium Potassium Chloride BUN Creatinine Glucose POC Glucose 147 H 202 H Calcium Phosphorus Magnesium AST ALT Total Creatine Kinase CK-MB (CK-2) Troponin T Total Protein Albumin HDL Cholesterol TSH Free T3 Index Arterial Blood Glucose 202 H Arterial Blood Ionized Calcium Urine pH Urine WBC (Auto) Urine Creatinine Acetaminophen Crossmatch 05/03/21 05/03/21 05/03/21 05:14 05:44 11:10 WBC RBC Hgb Hct MCV MCH RDW Plt Count Lymph % (Auto) [place] % (Auto) [place] # (Auto) Seg Neutrophils % Seg Neuts % (Manual) Lymphocytes % (Manual) Monocytes % (Manual) Seg Neutrophils # Seg Neutrophils # Man Lymphocytes # (Manual) Monocytes # (Manual) ABG pH POC ABG pCO2 POC ABG pO2 ABG Hemoglobin ABG Oxyhemoglobin ABG Sodium ABG Potassium ABG Chloride ABG Glucose Carboxyhemoglobin Sodium 147 H Potassium Chloride 109.7 H BUN 121 H Creatinine 3.1 H Glucose 190 H POC Glucose 175 H 202 H Calcium Phosphorus Magnesium AST ALT Total Creatine Kinase CK-MB (CK-2) Troponin T Total Protein Albumin HDL Cholesterol TSH Free T3 Index Arterial Blood Glucose Arterial Blood Ionized Calcium Urine pH Urine WBC (Auto) Urine Creatinine Acetaminophen Crossmatch 05/03/21 05/04/21 05/04/21 23:58 04:57 04:57 WBC RBC 2.61 L Hgb 8.2 L Hct 25.4 L MCV 98 H MCH RDW 15.3 H Plt Count Lymph % (Auto) [place] % (Auto) [place] # (Auto) Seg Neutrophils % Seg Neuts % (Manual) Lymphocytes % (Manual) Monocytes % (Manual) Seg Neutrophils # Seg Neutrophils # Man Lymphocytes # (Manual) Monocytes # (Manual) ABG pH POC ABG pCO2 POC ABG pO2 ABG Hemoglobin ABG Oxyhemoglobin ABG Sodium ABG Potassium ABG Chloride ABG Glucose Carboxyhemoglobin Sodium 147 H Potassium Chloride 111.0 H BUN 104 H Creatinine 2.8 H Glucose 179 H POC Glucose 131 H Calcium Phosphorus Magnesium AST ALT Total Creatine Kinase CK-MB (CK-2) Troponin T Total Protein Albumin HDL Cholesterol TSH Free T3 Index Arterial Blood Glucose Arterial Blood Ionized Calcium Urine pH Urine WBC (Auto) Urine Creatinine Acetaminophen Crossmatch 05/04/21 05/04/21 05/04/21 05:19 11:28 17:02 WBC RBC Hgb Hct MCV MCH RDW Plt Count Lymph % (Auto) [place] % (Auto) [place] # (Auto) Seg Neutrophils % Seg Neuts % (Manual) Lymphocytes % (Manual) Monocytes % (Manual) Seg Neutrophils # Seg Neutrophils # Man Lymphocytes # (Manual) Monocytes # (Manual) ABG pH POC ABG pCO2 POC ABG pO2 ABG Hemoglobin ABG Oxyhemoglobin ABG Sodium ABG Potassium ABG Chloride ABG Glucose Carboxyhemoglobin Sodium Potassium Chloride BUN Creatinine Glucose POC Glucose 168 H 206 H 213 H Calcium Phosphorus Magnesium AST ALT Total Creatine Kinase CK-MB (CK-2) Troponin T Total Protein Albumin HDL Cholesterol TSH Free T3 Index Arterial Blood Glucose Arterial Blood Ionized Calcium Urine pH Urine WBC (Auto) Urine Creatinine Acetaminophen Crossmatch 05/04/21 05/05/21 05/05/21 23:13 04:55 05:15 WBC RBC Hgb Hct MCV MCH RDW Plt Count Lymph % (Auto) [place] % (Auto) [place] # (Auto) Seg Neutrophils % Seg Neuts % (Manual) Lymphocytes % (Manual) Monocytes % (Manual) Seg Neutrophils # Seg Neutrophils # Man Lymphocytes # (Manual) Monocytes # (Manual) ABG pH POC ABG pCO2 POC ABG pO2 ABG Hemoglobin ABG Oxyhemoglobin ABG Sodium ABG Potassium ABG Chloride ABG Glucose Carboxyhemoglobin Sodium Potassium Chloride BUN 91 H Creatinine 2.4 H Glucose 255 H POC Glucose 232 H 235 H Calcium Phosphorus Magnesium AST ALT Total Creatine Kinase CK-MB (CK-2) Troponin T Total Protein Albumin HDL Cholesterol TSH Free T3 Index Arterial Blood Glucose Arterial Blood Ionized Calcium Urine pH Urine WBC (Auto) Urine Creatinine Acetaminophen Crossmatch 05/05/21 05/05/21 05/05/21 11:41 17:46 23:40 WBC RBC Hgb Hct MCV MCH RDW Plt Count Lymph % (Auto) [place] % (Auto) [place] # (Auto) Seg Neutrophils % Seg Neuts % (Manual) Lymphocytes % (Manual) Monocytes % (Manual) Seg Neutrophils # Seg Neutrophils # Man Lymphocytes # (Manual) Monocytes # (Manual) ABG pH POC ABG pCO2 POC ABG pO2 ABG Hemoglobin ABG Oxyhemoglobin ABG Sodium ABG Potassium ABG Chloride ABG Glucose Carboxyhemoglobin Sodium Potassium Chloride BUN Creatinine Glucose POC Glucose 199 H 231 H 224 H Calcium Phosphorus Magnesium AST ALT Total Creatine Kinase CK-MB (CK-2) Troponin T Total Protein Albumin HDL Cholesterol TSH Free T3 Index Arterial Blood Glucose Arterial Blood Ionized Calcium Urine pH Urine WBC (Auto) Urine Creatinine Acetaminophen Crossmatch 05/06/21 05/06/21 05/06/21 04:00 05:37 07:12 WBC RBC Hgb Hct MCV MCH RDW Plt Count Lymph % (Auto) [place] % (Auto) [place] # (Auto) Seg Neutrophils % Seg Neuts % (Manual) Lymphocytes % (Manual) Monocytes % (Manual) Seg Neutrophils # Seg Neutrophils # Man Lymphocytes # (Manual) Monocytes # (Manual) ABG pH 7.464 H POC ABG pCO2 POC ABG pO2 74.2 L ABG Hemoglobin 10.5 L ABG Oxyhemoglobin ABG Sodium ABG Potassium ABG Chloride 110.0 H ABG Glucose 214 H Carboxyhemoglobin 0.4 L Sodium 146 H Potassium Chloride 110.4 H BUN 82 H Creatinine 2.3 H Glucose 154 H POC Glucose 165 H Calcium Phosphorus Magnesium AST ALT Total Creatine Kinase CK-MB (CK-2) Troponin T Total Protein Albumin HDL Cholesterol TSH Free T3 Index Arterial Blood Glucose 214 H Arterial Blood Ionized Calcium Urine pH Urine WBC (Auto) Urine Creatinine Acetaminophen Crossmatch 05/06/21 05/06/21 05/07/21 17:11 23:40 05:26 WBC RBC Hgb Hct MCV MCH RDW Plt Count Lymph % (Auto) [place] % (Auto) [place] # (Auto) Seg Neutrophils % Seg Neuts % (Manual) Lymphocytes % (Manual) Monocytes % (Manual) Seg Neutrophils # Seg Neutrophils # Man Lymphocytes # (Manual) Monocytes # (Manual) ABG pH POC ABG pCO2 POC ABG pO2 ABG Hemoglobin ABG Oxyhemoglobin ABG Sodium ABG Potassium ABG Chloride ABG Glucose Carboxyhemoglobin Sodium Potassium Chloride BUN Creatinine Glucose POC Glucose 126 H 165 H 156 H Calcium Phosphorus Magnesium AST ALT Total Creatine Kinase CK-MB (CK-2) Troponin T Total Protein Albumin HDL Cholesterol TSH Free T3 Index Arterial Blood Glucose Arterial Blood Ionized Calcium Urine pH Urine WBC (Auto) Urine Creatinine Acetaminophen Crossmatch 05/07/21 05/07/21 05/07/21 08:20 08:20 11:35 WBC RBC 2.58 L Hgb 7.9 L Hct 24.9 L MCV MCH RDW Plt Count Lymph % (Auto) [place] % (Auto) [place] # (Auto) Seg Neutrophils % Seg Neuts % (Manual) Lymphocytes % (Manual) Monocytes % (Manual) Seg Neutrophils # Seg Neutrophils # Man Lymphocytes # (Manual) Monocytes # (Manual) ABG pH POC ABG pCO2 POC ABG pO2 ABG Hemoglobin ABG Oxyhemoglobin ABG Sodium ABG Potassium ABG Chloride ABG Glucose Carboxyhemoglobin Sodium Potassium Chloride 108.4 H BUN 81 H Creatinine 2.4 H Glucose 133 H POC Glucose 112 H Calcium Phosphorus Magnesium AST ALT Total Creatine Kinase CK-MB (CK-2) Troponin T Total Protein Albumin HDL Cholesterol TSH Free T3 Index Arterial Blood Glucose Arterial Blood Ionized Calcium Urine pH Urine WBC (Auto) Urine Creatinine Acetaminophen Crossmatch 05/07/21 05/07/21 05/08/21 17:51 23:27 03:05 WBC RBC Hgb Hct MCV MCH RDW Plt Count Lymph % (Auto) [place] % (Auto) [place] # (Auto) Seg Neutrophils % Seg Neuts % (Manual) Lymphocytes % (Manual) Monocytes % (Manual) Seg Neutrophils # Seg Neutrophils # Man Lymphocytes # (Manual) Monocytes # (Manual) ABG pH 7.454 H POC ABG pCO2 POC ABG pO2 82.1 L ABG Hemoglobin 8.1 L ABG Oxyhemoglobin ABG Sodium ABG Potassium 4.8 H ABG Chloride 111.0 H ABG Glucose 194 H Carboxyhemoglobin Sodium Potassium Chloride BUN Creatinine Glucose POC Glucose 136 H 133 H Calcium Phosphorus Magnesium AST ALT Total Creatine Kinase CK-MB (CK-2) Troponin T Total Protein Albumin HDL Cholesterol TSH Free T3 Index Arterial Blood Glucose 194 H Arterial Blood Ionized Calcium Urine pH Urine WBC (Auto) Urine Creatinine Acetaminophen Crossmatch 05/08/21 05/08/21 05/08/21 05:52 07:07 07:07 WBC 12.0 H RBC 2.94 L Hgb 9.0 L Hct 28.5 L MCV MCH RDW Plt Count Lymph % (Auto) [place] % (Auto) [place] # (Auto) Seg Neutrophils % Seg Neuts % (Manual) Lymphocytes % (Manual) Monocytes % (Manual) Seg Neutrophils # Seg Neutrophils # Man Lymphocytes # (Manual) Monocytes # (Manual) ABG pH POC ABG pCO2 POC ABG pO2 ABG Hemoglobin ABG Oxyhemoglobin ABG Sodium ABG Potassium ABG Chloride ABG Glucose Carboxyhemoglobin Sodium Potassium Chloride BUN 73 H Creatinine 2.2 H Glucose 211 H POC Glucose 194 H Calcium Phosphorus Magnesium AST ALT Total Creatine Kinase CK-MB (CK-2) Troponin T Total Protein Albumin HDL Cholesterol TSH Free T3 Index Arterial Blood Glucose Arterial Blood Ionized Calcium Urine pH Urine WBC (Auto) Urine Creatinine Acetaminophen Crossmatch 05/08/21 05/08/21 05/08/21 11:19 17:20 23:22 WBC RBC Hgb Hct MCV MCH RDW Plt Count Lymph % (Auto) [place] % (Auto) [place] # (Auto) Seg Neutrophils % Seg Neuts % (Manual) Lymphocytes % (Manual) Monocytes % (Manual) Seg Neutrophils # Seg Neutrophils # Man Lymphocytes # (Manual) Monocytes # (Manual) ABG pH POC ABG pCO2 POC ABG pO2 ABG Hemoglobin ABG Oxyhemoglobin ABG Sodium ABG Potassium ABG Chloride ABG Glucose Carboxyhemoglobin Sodium Potassium Chloride BUN Creatinine Glucose POC Glucose 231 H 251 H 295 H Calcium Phosphorus Magnesium AST ALT Total Creatine Kinase CK-MB (CK-2) Troponin T Total Protein Albumin HDL Cholesterol TSH Free T3 Index Arterial Blood Glucose Arterial Blood Ionized Calcium Urine pH Urine WBC (Auto) Urine Creatinine Acetaminophen Crossmatch 05/09/21 05/09/21 05/09/21 05:39 07:36 11:39 WBC RBC Hgb Hct MCV MCH RDW Plt Count Lymph % (Auto) [place] % (Auto) [place] # (Auto) Seg Neutrophils % Seg Neuts % (Manual) Lymphocytes % (Manual) Monocytes % (Manual) Seg Neutrophils # Seg Neutrophils # Man Lymphocytes # (Manual) Monocytes # (Manual) ABG pH POC ABG pCO2 POC ABG pO2 ABG Hemoglobin ABG Oxyhemoglobin ABG Sodium ABG Potassium ABG Chloride ABG Glucose Carboxyhemoglobin Sodium Potassium Chloride BUN 64 H Creatinine 2.2 H Glucose 308 H POC Glucose 240 H 330 H Calcium Phosphorus Magnesium AST ALT Total Creatine Kinase CK-MB (CK-2) Troponin T Total Protein Albumin HDL Cholesterol TSH Free T3 Index Arterial Blood Glucose Arterial Blood Ionized Calcium Urine pH Urine WBC (Auto) Urine Creatinine Acetaminophen Crossmatch 05/09/21 05/09/21 05/10/21 17:37 23:15 05:15 WBC RBC Hgb Hct MCV MCH RDW Plt Count Lymph % (Auto) [place] % (Auto) [place] # (Auto) Seg Neutrophils % Seg Neuts % (Manual) Lymphocytes % (Manual) Monocytes % (Manual) Seg Neutrophils # Seg Neutrophils # Man Lymphocytes # (Manual) Monocytes # (Manual) ABG pH POC ABG pCO2 POC ABG pO2 ABG Hemoglobin ABG Oxyhemoglobin ABG Sodium ABG Potassium ABG Chloride ABG Glucose Carboxyhemoglobin Sodium Potassium Chloride BUN Creatinine Glucose POC Glucose 174 H 152 H 146 H Calcium Phosphorus Magnesium AST ALT Total Creatine Kinase CK-MB (CK-2) Troponin T Total Protein Albumin HDL Cholesterol TSH Free T3 Index Arterial Blood Glucose Arterial Blood Ionized Calcium Urine pH Urine WBC (Auto) Urine Creatinine Acetaminophen Crossmatch 05/10/21 05/10/21 05/10/21 05:36 11:29 17:35 WBC RBC Hgb Hct MCV MCH RDW Plt Count Lymph % (Auto) [place] % (Auto) [place] # (Auto) Seg Neutrophils % Seg Neuts % (Manual) Lymphocytes % (Manual) Monocytes % (Manual) Seg Neutrophils # Seg Neutrophils # Man Lymphocytes # (Manual) Monocytes # (Manual) ABG pH POC ABG pCO2 POC ABG pO2 ABG Hemoglobin ABG Oxyhemoglobin ABG Sodium ABG Potassium ABG Chloride ABG Glucose Carboxyhemoglobin Sodium Potassium Chloride 110.7 H BUN 54 H Creatinine 2.2 H Glucose 164 H POC Glucose 202 H 109 H Calcium Phosphorus Magnesium AST ALT Total Creatine Kinase CK-MB (CK-2) Troponin T Total Protein Albumin HDL Cholesterol TSH Free T3 Index Arterial Blood Glucose Arterial Blood Ionized Calcium Urine pH Urine WBC (Auto) Urine Creatinine Acetaminophen Crossmatch 05/11/21 05/11/21 05/11/21 05:38 07:10 11:54 WBC RBC Hgb Hct MCV MCH RDW Plt Count Lymph % (Auto) [place] % (Auto) [place] # (Auto) Seg Neutrophils % Seg Neuts % (Manual) Lymphocytes % (Manual) Monocytes % (Manual) Seg Neutrophils # Seg Neutrophils # Man Lymphocytes # (Manual) Monocytes # (Manual) ABG pH POC ABG pCO2 POC ABG pO2 ABG Hemoglobin ABG Oxyhemoglobin ABG Sodium ABG Potassium ABG Chloride ABG Glucose Carboxyhemoglobin Sodium Potassium 5.2 H Chloride 108.8 H BUN 50 H Creatinine 2.2 H Glucose 176 H POC Glucose 135 H 219 H Calcium Phosphorus Magnesium AST ALT Total Creatine Kinase CK-MB (CK-2) Troponin T Total Protein Albumin HDL Cholesterol TSH Free T3 Index Arterial Blood Glucose Arterial Blood Ionized Calcium Urine pH Urine WBC (Auto) Urine Creatinine Acetaminophen Crossmatch 05/11/21 05/11/21 05/12/21 17:51 22:50 04:51 WBC RBC Hgb Hct MCV MCH RDW Plt Count Lymph % (Auto) [place] % (Auto) [place] # (Auto) Seg Neutrophils % Seg Neuts % (Manual) Lymphocytes % (Manual) Monocytes % (Manual) Seg Neutrophils # Seg Neutrophils # Man Lymphocytes # (Manual) Monocytes # (Manual) ABG pH POC ABG pCO2 POC ABG pO2 ABG Hemoglobin ABG Oxyhemoglobin ABG Sodium ABG Potassium ABG Chloride ABG Glucose Carboxyhemoglobin Sodium Potassium Chloride 108.2 H BUN 49 H Creatinine 2.2 H Glucose 161 H POC Glucose 169 H 118 H Calcium Phosphorus Magnesium AST ALT Total Creatine Kinase CK-MB (CK-2) Troponin T Total Protein Albumin HDL Cholesterol TSH Free T3 Index Arterial Blood Glucose Arterial Blood Ionized Calcium Urine pH Urine WBC (Auto) Urine Creatinine Acetaminophen Crossmatch 05/12/21 05/12/21 05/12/21 05:05 10:31 11:50 WBC RBC Hgb Hct MCV MCH RDW Plt Count Lymph % (Auto) [place] % (Auto) [place] # (Auto) Seg Neutrophils % Seg Neuts % (Manual) Lymphocytes % (Manual) Monocytes % (Manual) Seg Neutrophils # Seg Neutrophils # Man Lymphocytes # (Manual) Monocytes # (Manual) ABG pH 7.498 H POC ABG pCO2 POC ABG pO2 75.8 L ABG Hemoglobin 7.3 L ABG Oxyhemoglobin 93.4 L ABG Sodium ABG Potassium ABG Chloride 108.0 H ABG Glucose 199 H Carboxyhemoglobin 1.6 H Sodium Potassium Chloride BUN Creatinine Glucose POC Glucose 160 H 160 H Calcium Phosphorus Magnesium AST ALT Total Creatine Kinase CK-MB (CK-2) Troponin T Total Protein Albumin HDL Cholesterol TSH Free T3 Index Arterial Blood Glucose 199 H Arterial Blood Ionized Calcium Urine pH Urine WBC (Auto) Urine Creatinine Acetaminophen Crossmatch 05/12/21 05/12/21 05/13/21 17:39 23:36 05:49 WBC RBC Hgb Hct MCV MCH RDW Plt Count Lymph % (Auto) [place] % (Auto) [place] # (Auto) Seg Neutrophils % Seg Neuts % (Manual) Lymphocytes % (Manual) Monocytes % (Manual) Seg Neutrophils # Seg Neutrophils # Man Lymphocytes # (Manual) Monocytes # (Manual) ABG pH POC ABG pCO2 POC ABG pO2 ABG Hemoglobin ABG Oxyhemoglobin ABG Sodium ABG Potassium ABG Chloride ABG Glucose Carboxyhemoglobin Sodium Potassium Chloride BUN Creatinine Glucose POC Glucose 148 H 148 H 173 H Calcium Phosphorus Magnesium AST ALT Total Creatine Kinase CK-MB (CK-2) Troponin T Total Protein Albumin HDL Cholesterol TSH Free T3 Index Arterial Blood Glucose Arterial Blood Ionized Calcium Urine pH Urine WBC (Auto) Urine Creatinine Acetaminophen Crossmatch 05/13/21 05/13/21 05/13/21 05:58 13:09 17:01 WBC RBC Hgb Hct MCV MCH RDW Plt Count Lymph % (Auto) [place] % (Auto) [place] # (Auto) Seg Neutrophils % Seg Neuts % (Manual) Lymphocytes % (Manual) Monocytes % (Manual) Seg Neutrophils # Seg Neutrophils # Man Lymphocytes # (Manual) Monocytes # (Manual) ABG pH POC ABG pCO2 POC ABG pO2 ABG Hemoglobin ABG Oxyhemoglobin ABG Sodium ABG Potassium ABG Chloride ABG Glucose Carboxyhemoglobin Sodium Potassium Chloride 108.0 H BUN 53 H Creatinine 2.2 H Glucose 178 H POC Glucose 191 H 151 H Calcium Phosphorus Magnesium AST ALT Total Creatine Kinase CK-MB (CK-2) Troponin T Total Protein Albumin HDL Cholesterol TSH Free T3 Index Arterial Blood Glucose Arterial Blood Ionized Calcium Urine pH Urine WBC (Auto) Urine Creatinine Acetaminophen Crossmatch 05/14/21 05/14/21 05/14/21 00:02 04:48 08:16 WBC RBC Hgb Hct MCV MCH RDW Plt Count Lymph % (Auto) [place] % (Auto) [place] # (Auto) Seg Neutrophils % Seg Neuts % (Manual) Lymphocytes % (Manual) Monocytes % (Manual) Seg Neutrophils # Seg Neutrophils # Man Lymphocytes # (Manual) Monocytes # (Manual) ABG pH POC ABG pCO2 POC ABG pO2 ABG Hemoglobin ABG Oxyhemoglobin ABG Sodium ABG Potassium ABG Chloride ABG Glucose Carboxyhemoglobin Sodium Potassium Chloride BUN 45 H Creatinine 2.0 H Glucose 207 H POC Glucose 148 H 193 H Calcium Phosphorus Magnesium AST ALT Total Creatine Kinase CK-MB (CK-2) Troponin T Total Protein Albumin HDL Cholesterol TSH Free T3 Index Arterial Blood Glucose Arterial Blood Ionized Calcium Urine pH Urine WBC (Auto) Urine Creatinine Acetaminophen Crossmatch 05/14/21 05/14/21 05/14/21 08:50 12:44 17:29 WBC RBC 2.16 L Hgb 7.0 L Hct 21.2 L MCV 98 H MCH 33 H RDW 16.0 H Plt Count Lymph % (Auto) [place] % (Auto) [place] # (Auto) Seg Neutrophils % Seg Neuts % (Manual) Lymphocytes % (Manual) Monocytes % (Manual) Seg Neutrophils # Seg Neutrophils # Man Lymphocytes # (Manual) Monocytes # (Manual) ABG pH POC ABG pCO2 POC ABG pO2 ABG Hemoglobin ABG Oxyhemoglobin ABG Sodium ABG Potassium ABG Chloride ABG Glucose Carboxyhemoglobin Sodium Potassium Chloride BUN Creatinine Glucose POC Glucose 215 H 118 H Calcium Phosphorus Magnesium AST ALT Total Creatine Kinase CK-MB (CK-2) Troponin T Total Protein Albumin HDL Cholesterol TSH Free T3 Index Arterial Blood Glucose Arterial Blood Ionized Calcium Urine pH Urine WBC (Auto) Urine Creatinine Acetaminophen Crossmatch 05/14/21 05/15/21 05/15/21 19:00 05:11 05:51 WBC RBC Hgb Hct MCV MCH RDW Plt Count Lymph % (Auto) [place] % (Auto) [place] # (Auto) Seg Neutrophils % Seg Neuts % (Manual) Lymphocytes % (Manual) Monocytes % (Manual) Seg Neutrophils # Seg Neutrophils # Man Lymphocytes # (Manual) Monocytes # (Manual) ABG pH POC ABG pCO2 POC ABG pO2 ABG Hemoglobin ABG Oxyhemoglobin ABG Sodium ABG Potassium ABG Chloride ABG Glucose Carboxyhemoglobin Sodium Potassium 5.3 H Chloride BUN 42 H Creatinine 2.0 H Glucose 123 H POC Glucose 116 H Calcium Phosphorus Magnesium AST ALT Total Creatine Kinase CK-MB (CK-2) Troponin T Total Protein Albumin HDL Cholesterol TSH Free T3 Index Arterial Blood Glucose Arterial Blood Ionized Calcium Urine pH Urine WBC (Auto) Urine Creatinine Acetaminophen Crossmatch See Detail 05/15/21 05/15/21 05/15/21 05:51 11:27 22:00 WBC RBC 2.60 L Hgb 8.0 L Hct 24.6 L MCV MCH RDW 17.0 H Plt Count Lymph % (Auto) [place] % (Auto) 15.3 H [place] # (Auto) 1.1 H Seg Neutrophils % Seg Neuts % (Manual) Lymphocytes % (Manual) Monocytes % (Manual) Seg Neutrophils # Seg Neutrophils # Man Lymphocytes # (Manual) Monocytes # (Manual) ABG pH 7.473 H POC ABG pCO2 POC ABG pO2 77.7 L ABG Hemoglobin 8.4 L ABG Oxyhemoglobin ABG Sodium ABG Potassium 4.7 H ABG Chloride ABG Glucose 104 H Carboxyhemoglobin Sodium Potassium Chloride BUN Creatinine Glucose POC Glucose 156 H Calcium Phosphorus Magnesium AST ALT Total Creatine Kinase CK-MB (CK-2) Troponin T Total Protein Albumin HDL Cholesterol TSH Free T3 Index Arterial Blood Glucose 104 H Arterial Blood Ionized Calcium Urine pH Urine WBC (Auto) Urine Creatinine Acetaminophen Crossmatch 05/16/21 05/16/21 05/16/21 05:25 06:40 11:57 WBC RBC Hgb Hct MCV MCH RDW Plt Count Lymph % (Auto) [place] % (Auto) [place] # (Auto) Seg Neutrophils % Seg Neuts % (Manual) Lymphocytes % (Manual) Monocytes % (Manual) Seg Neutrophils # Seg Neutrophils # Man Lymphocytes # (Manual) Monocytes # (Manual) ABG pH POC ABG pCO2 POC ABG pO2 ABG Hemoglobin ABG Oxyhemoglobin ABG Sodium ABG Potassium ABG Chloride ABG Glucose Carboxyhemoglobin Sodium Potassium 5.4 H Chloride BUN 39 H Creatinine 2.0 H Glucose 165 H POC Glucose 143 H 191 H Calcium Phosphorus Magnesium AST ALT Total Creatine Kinase CK-MB (CK-2) Troponin T Total Protein Albumin HDL Cholesterol TSH Free T3 Index Arterial Blood Glucose Arterial Blood Ionized Calcium Urine pH Urine WBC (Auto) Urine Creatinine Acetaminophen Crossmatch 05/16/21 05/16/21 05/17/21 17:18 23:02 05:08 WBC RBC Hgb Hct MCV MCH RDW Plt Count Lymph % (Auto) [place] % (Auto) [place] # (Auto) Seg Neutrophils % Seg Neuts % (Manual) Lymphocytes % (Manual) Monocytes % (Manual) Seg Neutrophils # Seg Neutrophils # Man Lymphocytes # (Manual) Monocytes # (Manual) ABG pH POC ABG pCO2 POC ABG pO2 ABG Hemoglobin ABG Oxyhemoglobin ABG Sodium ABG Potassium ABG Chloride ABG Glucose Carboxyhemoglobin Sodium Potassium Chloride BUN Creatinine Glucose POC Glucose 157 H 127 H 171 H Calcium Phosphorus Magnesium AST ALT Total Creatine Kinase CK-MB (CK-2) Troponin T Total Protein Albumin HDL Cholesterol TSH Free T3 Index Arterial Blood Glucose Arterial Blood Ionized Calcium Urine pH Urine WBC (Auto) Urine Creatinine Acetaminophen Crossmatch 05/17/21 05/17/21 05/17/21 07:43 07:43 11:11 WBC RBC 2.83 L Hgb 8.6 L Hct 26.8 L MCV MCH RDW 16.2 H Plt Count Lymph % (Auto) [place] % (Auto) [place] # (Auto) Seg Neutrophils % Seg Neuts % (Manual) Lymphocytes % (Manual) Monocytes % (Manual) Seg Neutrophils # Seg Neutrophils # Man Lymphocytes # (Manual) Monocytes # (Manual) ABG pH POC ABG pCO2 POC ABG pO2 ABG Hemoglobin ABG Oxyhemoglobin ABG Sodium ABG Potassium ABG Chloride ABG Glucose Carboxyhemoglobin Sodium Potassium Chloride BUN 39 H Creatinine 2.1 H Glucose 183 H POC Glucose 182 H Calcium Phosphorus Magnesium AST ALT Total Creatine Kinase CK-MB (CK-2) Troponin T Total Protein Albumin HDL Cholesterol TSH Free T3 Index Arterial Blood Glucose Arterial Blood Ionized Calcium Urine pH Urine WBC (Auto) Urine Creatinine Acetaminophen Crossmatch 05/17/21 05/17/21 05/18/21 17:25 21:04 01:54 WBC RBC Hgb Hct MCV MCH RDW Plt Count Lymph % (Auto) [place] % (Auto) [place] # (Auto) Seg Neutrophils % Seg Neuts % (Manual) Lymphocytes % (Manual) Monocytes % (Manual) Seg Neutrophils # Seg Neutrophils # Man Lymphocytes # (Manual) Monocytes # (Manual) ABG pH POC ABG pCO2 POC ABG pO2 ABG Hemoglobin 9.2 L ABG Oxyhemoglobin ABG Sodium ABG Potassium ABG Chloride ABG Glucose 160 H Carboxyhemoglobin Sodium Potassium Chloride BUN Creatinine Glucose POC Glucose 117 H 130 H Calcium Phosphorus Magnesium AST ALT Total Creatine Kinase CK-MB (CK-2) Troponin T Total Protein Albumin HDL Cholesterol TSH Free T3 Index Arterial Blood Glucose 160 H Arterial Blood Ionized Calcium Urine pH Urine WBC (Auto) Urine Creatinine Acetaminophen Crossmatch 05/18/21 05/18/21 05/18/21 05:21 06:13 06:45 WBC RBC Hgb Hct MCV MCH RDW Plt Count Lymph % (Auto) [place] % (Auto) [place] # (Auto) Seg Neutrophils % Seg Neuts % (Manual) Lymphocytes % (Manual) Monocytes % (Manual) Seg Neutrophils # Seg Neutrophils # Man Lymphocytes # (Manual) Monocytes # (Manual) ABG pH POC ABG pCO2 POC ABG pO2 ABG Hemoglobin ABG Oxyhemoglobin ABG Sodium ABG Potassium ABG Chloride ABG Glucose Carboxyhemoglobin Sodium Potassium Chloride BUN 42 H Creatinine 2.1 H Glucose 154 H POC Glucose 163 H Calcium Phosphorus Magnesium AST ALT Total Creatine Kinase CK-MB (CK-2) Troponin T Total Protein Albumin HDL Cholesterol TSH Free T3 Index Arterial Blood Glucose Arterial Blood Ionized Calcium Urine pH Urine WBC (Auto) Urine Creatinine 104.7 H Acetaminophen Crossmatch 05/18/21 05/18/21 05/18/21 12:01 16:01 23:59 WBC RBC Hgb Hct MCV MCH RDW Plt Count Lymph % (Auto) [place] % (Auto) [place] # (Auto) Seg Neutrophils % Seg Neuts % (Manual) Lymphocytes % (Manual) Monocytes % (Manual) Seg Neutrophils # Seg Neutrophils # Man Lymphocytes # (Manual) Monocytes # (Manual) ABG pH POC ABG pCO2 POC ABG pO2 ABG Hemoglobin ABG Oxyhemoglobin ABG Sodium ABG Potassium ABG Chloride ABG Glucose Carboxyhemoglobin Sodium Potassium Chloride BUN Creatinine Glucose POC Glucose 209 H 142 H 118 H Calcium Phosphorus Magnesium AST ALT Total Creatine Kinase CK-MB (CK-2) Troponin T Total Protein Albumin HDL Cholesterol TSH Free T3 Index Arterial Blood Glucose Arterial Blood Ionized Calcium Urine pH Urine WBC (Auto) Urine Creatinine Acetaminophen Crossmatch 05/19/21 05/19/21 05/19/21 06:22 07:40 07:40 WBC RBC 2.55 L Hgb 8.1 L Hct 24.4 L MCV MCH RDW 16.5 H Plt Count Lymph % (Auto) [place] % (Auto) [place] # (Auto) Seg Neutrophils % Seg Neuts % (Manual) Lymphocytes % (Manual) Monocytes % (Manual) Seg Neutrophils # Seg Neutrophils # Man Lymphocytes # (Manual) Monocytes # (Manual) ABG pH POC ABG pCO2 POC ABG pO2 ABG Hemoglobin ABG Oxyhemoglobin ABG Sodium ABG Potassium ABG Chloride ABG Glucose Carboxyhemoglobin Sodium 136 L Potassium Chloride BUN 37 H Creatinine 2.0 H Glucose 163 H POC Glucose 151 H Calcium Phosphorus Magnesium AST ALT Total Creatine Kinase CK-MB (CK-2) Troponin T Total Protein Albumin HDL Cholesterol TSH Free T3 Index Arterial Blood Glucose Arterial Blood Ionized Calcium Urine pH Urine WBC (Auto) Urine Creatinine Acetaminophen Crossmatch 05/19/21 05/19/21 05/19/21 11:13 16:41 17:58 WBC RBC Hgb Hct MCV MCH RDW Plt Count Lymph % (Auto) [place] % (Auto) [place] # (Auto) Seg Neutrophils % Seg Neuts % (Manual) Lymphocytes % (Manual) Monocytes % (Manual) Seg Neutrophils # Seg Neutrophils # Man Lymphocytes # (Manual) Monocytes # (Manual) ABG pH POC ABG pCO2 POC ABG pO2 ABG Hemoglobin ABG Oxyhemoglobin ABG Sodium ABG Potassium ABG Chloride ABG Glucose Carboxyhemoglobin Sodium Potassium Chloride BUN Creatinine Glucose POC Glucose 162 H 112 H 106 H Calcium Phosphorus Magnesium AST ALT Total Creatine Kinase CK-MB (CK-2) Troponin T Total Protein Albumin HDL Cholesterol TSH Free T3 Index Arterial Blood Glucose Arterial Blood Ionized Calcium Urine pH Urine WBC (Auto) Urine Creatinine Acetaminophen Crossmatch 05/20/21 05/20/21 05/20/21 01:11 05:18 05:18 WBC RBC 2.59 L Hgb 8.0 L Hct 24.6 L MCV MCH RDW 16.1 H Plt Count Lymph % (Auto) [place] % (Auto) [place] # (Auto) Seg Neutrophils % Seg Neuts % (Manual) Lymphocytes % (Manual) Monocytes % (Manual) Seg Neutrophils # Seg Neutrophils # Man Lymphocytes # (Manual) Monocytes # (Manual) ABG pH POC ABG pCO2 POC ABG pO2 ABG Hemoglobin ABG Oxyhemoglobin ABG Sodium ABG Potassium ABG Chloride ABG Glucose Carboxyhemoglobin Sodium 134 L Potassium Chloride BUN 35 H Creatinine 1.9 H Glucose 185 H POC Glucose 172 H Calcium Phosphorus Magnesium AST ALT Total Creatine Kinase CK-MB (CK-2) Troponin T Total Protein Albumin HDL Cholesterol TSH Free T3 Index Arterial Blood Glucose Arterial Blood Ionized Calcium Urine pH Urine WBC (Auto) Urine Creatinine Acetaminophen Crossmatch 05/20/21 05/20/21 05/20/21 06:04 11:26 23:20 WBC RBC Hgb Hct MCV MCH RDW Plt Count Lymph % (Auto) [place] % (Auto) [place] # (Auto) Seg Neutrophils % Seg Neuts % (Manual) Lymphocytes % (Manual) Monocytes % (Manual) Seg Neutrophils # Seg Neutrophils # Man Lymphocytes # (Manual) Monocytes # (Manual) ABG pH POC ABG pCO2 POC ABG pO2 ABG Hemoglobin ABG Oxyhemoglobin ABG Sodium ABG Potassium ABG Chloride ABG Glucose Carboxyhemoglobin Sodium Potassium Chloride BUN Creatinine Glucose POC Glucose 202 H 238 H 138 H Calcium Phosphorus Magnesium AST ALT Total Creatine Kinase CK-MB (CK-2) Troponin T Total Protein Albumin HDL Cholesterol TSH Free T3 Index Arterial Blood Glucose Arterial Blood Ionized Calcium Urine pH Urine WBC (Auto) Urine Creatinine Acetaminophen Crossmatch 05/21/21 05/21/21 05/21/21 05:19 05:27 11:34 WBC RBC Hgb Hct MCV MCH RDW Plt Count Lymph % (Auto) [place] % (Auto) [place] # (Auto) Seg Neutrophils % Seg Neuts % (Manual) Lymphocytes % (Manual) Monocytes % (Manual) Seg Neutrophils # Seg Neutrophils # Man Lymphocytes # (Manual) Monocytes # (Manual) ABG pH POC ABG pCO2 POC ABG pO2 ABG Hemoglobin ABG Oxyhemoglobin ABG Sodium ABG Potassium ABG Chloride ABG Glucose Carboxyhemoglobin Sodium 134 L Potassium Chloride BUN 34 H Creatinine 1.7 H Glucose 224 H POC Glucose 224 H 207 H Calcium Phosphorus Magnesium AST ALT Total Creatine Kinase CK-MB (CK-2) Troponin T Total Protein Albumin HDL Cholesterol TSH Free T3 Index Arterial Blood Glucose Arterial Blood Ionized Calcium Urine pH Urine WBC (Auto) Urine Creatinine Acetaminophen Crossmatch 05/21/21 16:16 WBC RBC Hgb Hct MCV MCH RDW Plt Count Lymph % (Auto) [place] % (Auto) [place] # (Auto) Seg Neutrophils % Seg Neuts % (Manual) Lymphocytes % (Manual) Monocytes % (Manual) Seg Neutrophils # Seg Neutrophils # Man Lymphocytes # (Manual) Monocytes # (Manual) ABG pH POC ABG pCO2 POC ABG pO2 ABG Hemoglobin ABG Oxyhemoglobin ABG Sodium ABG Potassium ABG Chloride ABG Glucose Carboxyhemoglobin Sodium Potassium Chloride BUN Creatinine Glucose POC Glucose 188 H Calcium Phosphorus Magnesium AST ALT Total Creatine Kinase CK-MB (CK-2) Troponin T Total Protein Albumin HDL Cholesterol TSH Free T3 Index Arterial Blood Glucose Arterial Blood Ionized Calcium Urine pH Urine WBC (Auto) Urine Creatinine Acetaminophen Crossmatch Allied health notes reviewed: nursing
[2021-05-22] MEDS: FAMOTIDINE 20 MG TAB PO SCH (14:02)
[2021-05-22] MEDS: ASPIRIN 81 MG TAB CHEW PO SCH (14:02)
[2021-05-22] MEDS: DOCUSATE SODIUM 100 MG/10 ML ORAL LIQD PO SCH ×2 (14:03→21:29)
[2021-05-22] MEDS: MIDODRINE 5 MG TAB PO SCH (14:03)
[2021-05-22] MEDS: HEPARIN 5,000 UNIT/1 ML VIAL SUB-Q SCH ×2 (14:04→21:30)
[2021-05-22] MEDS: TAMSULOSIN 0.4 MG CAP PO SCH (14:04)
[2021-05-22] MEDS: TIMOLOL 0.5% OPHTH SOLN 5 ML OU SCH (14:08)
[2021-05-22] MEDS: BRIMONIDINE 0.15% OPHTH SOLN OU SCH ×2 (14:11→21:31)
[2021-05-22] MEDS: amLODIPine 5 MG TAB PO SCH (14:12)
[2021-05-22 14:47] LABS: Calcium 9.8 mg/dL (8.4-10.2)
--- NOTE | 2021-05-22 15:25 | Progress Note ---
Assessment and Plan This is a 80-year-old female with HTN, DM, PA, breast CA s/p double mastectomy, TIA who presented with hypoglycemia, AMS who was admitted with SIRS, symptomatic bradycardia, acute metabolic encephalopathy, acute hypoxic respiratory failure, elevated TSH, hyperglycemia, hyponatremia, hypokalemia, ROJELIO and rhabdomyolysis Acute metabolic encephalopathy-persist Acute hypoxic respiratory failure (extubated 04/20)- Re-intubated secondary to S tridor and paradoxical breathing - s/p trach and PEG First-degree heart block Resolved ileus versus mechanical obstruction Acute kidney injury with vasomotor nephropathy UTI, Pseudomonas/ Earline Mild rhabdomyolysis Hypertension Diabetes mellitus with hyperglycemia on admission CAD Hypothyroidism with Elevated TSH Chronic illness with debilitymyopathy Obesity Urinary retention s/p hui -CCM, nephrology, neurology, cardiology consulted, patient recommendations -S/p D10 and D5W gtt, on TF -S/p IV calcium gluconate, regular insulin, D50 -S/p transcutaneous pacing, intermittent demand pacer in place -Renal ultrasound findings consistent with acute on chronic kidney disease, mildly complex right renal cyst -Blood pressure monitoring per protocol -Accu-Cheks every 6, SSI, long acting insulin -IV hydralazine as needed -midodrine for hypotension, however will dial back since patient's blood pressure seems to be elevated. Will attempt to slowly taper to see if patient actually needs midodrine at this point. -04/25 EEG is mildly abnormal with mild slowing noted throughout the recording, suggestive of mild cortical dysfunction and/or drug effect -04/20 EEG shows mildly abnormal record due to diffuse background slowing noted throughout the recording, intermittent motion artifact, patient intubated and sedated at time of study, no sign of seizures as well epilepticus noted, possible toxic metabolic encephalopathy, drug effect, possible postictal state cannot be totally excluded. -Avoid ACEi/ARB in setting of ROJELIO -Avoid AV arron blocking agents -Avoid nephrotoxic agents and renally dose medications -BB, hydralazine, amlodipine -TSH 14.1, T4 4.1, T3 1.1-started on levothyroxine -As needed racemic epinephrine -S/p steroids -s/p Antibiotic therapy -Trend CBC, BMP as needed PT/OT/ST to evaluate the patient Bladder scans as needed Repeat chest x-ray showing atelectasis, doubt its pneumonia DVT/GI prophylaxis: Heparin subcu, PPI, SCDs to bilateral lower extremities while in bed Disposition: Placement is an issue at this time, PT notes state patient needs LTAC but has been denied. Working with behavioral health case manager and family to arrange the best options for the patient. Patient's nephew may be interested in comfort care/hospice for the patient. Brief history This is a 80-year-old female with hypertension, diabetes mellitus, PA, breast cancer s/p double mastectomy, and a TIA who presented with hypoglycemia and altered mental status on 04/15 via EMS. Per EMS patient was unresponsive on their arrival and her blood glucose was 38 and she received 1 amp of dextrose patient continued to be unresponsive and only moaned with her eyes deviating to the left. Work-up in the emergency department revealed SIRS, symptomatic bradyc ardia, acute metabolic encephalopathy, acute hypoxic respiratory failure, elevated TSH, hyperglycemia, hyponatremia, hyperkalemia, acute kidney injury with ATN, and rhabdomyolysis. Daily clinical course; 04/16: Neurology consulted, COVID-19 PCR negative, D10 drip decreased and eventually discontinued by [facility] and started on D5W for 1 L. Hydralazine as needed. Patient had hyper kalemia today and was treated with D50, insulin and Kayexalate. This time examination patient is on assist control tidal volume 450, rate of 16, PEEP of 6 and 25% FiO2. 04/17: Patient started on low-dose beta-angel per cardiology, CPAP trial again per CCM, BUN/creatinine holding steady and hypochloremia/hyponatremia slightly improved and hypokalemia has resolved. This morning a KUB was obtained which was concerning for ileus versus mechanical obstruction and surgery was consulted. Patient was made n.p.o. and NG tube placed to wall suction. Patient was given suppository. Per RN patient did not have a BM even though she was given Kayexalate yesterday. Will obtain a KUB in the a.m. Neurology was consulted yesterday and will await further recommendations. Nephew updated at bedside today, Carlos Romero. 04/18: Neurology has ordered EEG/MRI B, [facility] continues to wean MV. Persistent low grade temperature so we will obtain BCx2/UA. Patient has improving leukocytosis, hyponatremia, renal function studies and hypochloremia. She has hypokalemia today which is being repleted. Surgery has signed off today and has okayed resumption of TF. [facility] will trial CPAP for longer today and plans to attempt extubation in AM. Family has requested transfer to [place] and Dr. Gordon will attempt to contact transfer center. I updated her nephew, Carlos Romero over the phone today abouyt current events and update on transfer ([facility] will conduct a utilization review) 04/19: This morning patient is on CPAP trial at the time of examination, noted to be hypertensive and metoprolol increased to home dose, started on synthroid by [facility], lantus started re hyperglycemia, MRI completed with no acute findings. Severe hypokalemia (repleted and Mg pending). [facility] will contact CPAP trial again today with possible trial extubation tomorrow. 04/20: Patient's leukocytosis and kidney function tests continue to improve. Patient is hypertensive overnight we will restart home hydralazine. [facility] plans to extubate patient today. Family is attempting to transfer to another facility. EEG pending, RT will atmept to contact soil conservation technician. Urine culture grew gram negative rods. Increase in lantus 04/21: Increase in Lantus, repleted phos. Patient has started this afternoon and was given racemic epinephrine and started on steroids. Patient will have BiPAP as needed. We will recheck BMP in the a.m. renal function studies continues to decrease. Patient has been hypertensive on evaluation regimen has been changed. 04/22: Lantus increased for hyperglycemia and add amlodipine for better BP control. Patient is on steroids. OT suctioned by RN with catheter in oral care kit and received copious amounts of secretions. Cr continues to decrease. Culture grew Pseudomonas and was changed in accordance to sensitivity. Hui removed today after clearance from nephrology. 04/23: MRI of the brain was done and unremarkable. Will obtain reconsult to nephrology for further assistance as patient remains in profound encephalopathy despite improvement of blood sugar. Will repeat chest x-ray as patient does tapia ve significant congestion physical exam. Tube feeds still ongoing. Continue aspiration precautions. Continue antibiotics when completed for Pseudomonas management 04/24: Neurology input noted, patient unfortunately with no improvement mental status [place], continues with congestion, will defer with Customs Broker for lasix in the setting of renal failure. will give kayexlate for hyperkalemia, still moans and groans, mittens in place. 04/25: Patient currently intubated, on restraints for safety, Profund encephalopathy persist, although awake she is not following any commands, Call placed to [facility] to see if they will accept transfer for ENT evaluation, while CT neck was negative, it was degraded by motion and unable to determent why patient had this stridor, Racemic Epinephrine was given, [facility] is on ICU saturation, but will call back with an ENT to discuss case. Renal function mildly worse, continue to monitor. Per cardiology, no further arrhythmias noted since admission. Given short duration of atrial fibrillation, along with pt's age, renal fxn, and other co- morbidities,...will resume additional medical therapies for underlying severe multi-vessel CAD (bASA & Plavix). Pt has previously declined intervention of known lesions as per her Primary Clinical Data Associate. 04/26: Now with febrile illness, ?developing infection, start on empiric abx, check lactate level, blood cultures, continue management per Cryptologic Linguist, Monitor leukocytosis, agree with Trach, family updated about denials in transfer request from outside hospitals. 04/27: WBC improving some, still with fever despite antibotics, ID consulted. CXR clear, continue current management, Trach will be planned if ok with family. Blood sugar remains elevated, will adjust insulin LANTUS to 40 units. Patient had previously completed Cefepime. Mental status remains unchanged, still moves upper ext. continue restraints 04/28: Continue supportive care. No new fever noted. Critical care physician will determine if patient should be have a trial of extubation again or if we should proceed straight to trach. Again continue to monitor mental status for complete improvement. 04/29: Per Cryptologic Linguist discussion with family, will proceed to Tracheostomy, Patients mental status still fluctuating, Continue current management. Surgeon consulted. 04/30: General surgery consulted for trach, continue to trend CBC and BMP. Ki dney function slightly worsened today. Increase in Lantus. Tmax 100.2, per ID will consider imaging if leukocytosis remains elevated with fevers. Plavix held for possible tracheostomy next week. 05/01: Patient fever curve is trending down with improving leukocytosis. Patient renal function worsened today. She remains hyperglycemic and her Lantus was increased to her home dose of Novolin 70/30. Patient was rate controlled yesterday due to T-max of 101. She remains on CMV tidal volume 450, rate of 10, PEEP of 6 and 30% FiO2. We will increase the water flushes given slight hypernatremia. Dr. Andrea updated nephew (Carlos) at bedside. CPAP trails. 05/02: Patient's hypernatremia and hyperchloremia slightly worsened and femur fractures were increased. Kidney functions remain the same however BUN is in the 100s. Nephrology is following. Hui catheter was removed. Awaiting trach placement with possibility on Friday. 05/03: Patient grew Earline in her urine culture however per ID and the Hui was already exchanged. Patient is on cefepime and Flagyl. Plavix still on hold awaiting trach. CCM started the patient on half-normal saline at 75 mL/h for 2 L related to azatoma and hypernatremia. Patient mental status continues to wax and wane. Creatinine is 3.1 today from 3.4 yesterday. Patient had a bowel movement today. Patient remains hyperglycemic and Lantus was changed from a.m. to p.m.. 05/04: Patient's renal function is improving, surgery obtain consent for trach/PEG scheduled for 05/07, antibiotics to end tomorrow. We will obtain BMP in the a.m. Lantus dosage change from AC to at bedtime in hopes of better glycemic control. 05/05: Patient Lantus dose is changed to twice daily in hopes of better glycemic control. Awaiting surgical procedure hopefully on Friday. Patient's BUN/creatinine improved and hypernatremia has resolved. 05/06: Patient has slight hypernatremia and hyperchloremia and improvement to BUN/creatinine. Better glycemic control. Awaiting trach on Friday. NGT was displaced but now replaced and TF resumed. 05/07 This is a 80-year-old female with HTN, DM, PA, breast CA s/p double mastectomy, TIA who presented with hypoglycemia, AMS who was admitted with SIRS, symptomatic bradycardia, acute metabolic encephalopathy, acute hypoxic respiratory failure, elevated TSH, hyperglycemia, hyponatremia, hypokalemia, ROJELIO and rhabdomyolysis. She is for Trach and PEG today. 05/08: s/p trach and PEG placement yesterday. cont to monitor, wean off from vent as tolertaed 05/09: Patient started on tube feeding and tolerating well. Currently on CPAP setting with newly placed trach. Discussed with case management and patient would need placement. Continue supportive care and follow clinically. 05/10: Continue supportive care, patient is tolerating tube feeding diet. Remains on CPAP with trach. Pending LTAC placement. 05/11: Continue supportive care, patient is tolerating tube feeding diet. Remains on CPAP with trach. Plan to wean off from Vent as tolerates and to place on t-piece. 05/12; Patient placed on t-piece today, tolerating TF, cont to monitor clinically. follow CBC/BMP 05/13: Remains on t-piece, plan to wean off to wall T-piece. If unable to wean off from vent then patient will need criteria for LTAC upon her insurance requirement. If she tolerates weaning trial and able to maintain T-piece then she will be discharged back to [facility]. Ordered for a.m. labs. Continue to follow clinically with supportive care. 05/14: Pending placement. Patient back on Mechanical ventilation today with trach tube. Hemoglobin 7.0. Will transfuse 1 unit packed RBC. Continue to monitor clinically. 05/15: Pending placement, [facility] continues to trial patient on trach collar for as long as tolerated. Patient is H/H improved to 8/24.6 after 1 unit PRBC. Renal function continues to fluctuate and is currently at CR 2/BUN 42. Patient is slightly hyperkalemic today at 5.3 and received 30 g of Kionex. We will obtain a.m. BMP and continue to trend CBC. Patient is hypertensive and hydralazine dose has been increased. 05/16: Patient noted to have hyperkalemia again today and was treated. Patient continued T-piece on 20% FiO2 for over 24 hours. This afternoon patient was noted to be off of trach collar and SPO2 was still in the mid 90s. Trach collar was replaced. We will remove Hui catheter and BladderScan the patient every 4 hours. 05/17: Patient has been started on midodrine and given approximately 750 ML IV fluid bolus in response to hypotension. Will receive normal saline at 75 for another 2 L. Has a standing order for bladder scans every 4 and straight cath if needed. Patient will be transferred to telemetry today. 05/18: Patient is on the floor, patient is shaking her head to answering questions and moving her legs. Patient is lethargic at times. 05/19: Patient seen on floor, patient is awake, has some secretions, spoke with nurse to suction. Patient is shaking her head yes and no to my questions. 05/20: Patient seen and examined, case management and family at the bedside. No acute distress overnight, there was some secretions, and asked the nurse to suction. Repeat chest x-ray does not show any new abnormalities 05/21: pt seen with bedside, awake. No respiratory distress, spoke with bedside nurse, patient was suction this morning. On 5 L via trach. 05/22: Patient remains on trach tube with 5 L of O2. Clinically stable. Per CM family requesting for hospice placement. Wait for family to sign DNR and hospice consent. Subjective Date of service: 05/22/21 Principal diagnosis: Ac. resp failure; AMS; Hypoglycemia; ROJELIO; Hyperkalemia; DM II Interval history: Patient seen and examined. Medical records and medication list reviewed. No acute event overnight noted by the RN. Patient remains on trach tube, on tube feeding - tolerating well Discussed plan of care at bedside with patient's RN. Objective - Exam Narrative Exam: General appearance: Present: no acute distress, intubated on mechanical ventilation - EENT Eyes: Present: PERRL, EOM intact - Neck Neck: Present: normal ROM, trach in place - Respiratory Respiratory effort: normal Respiratory: bilateral: diminished - Cardiovascular Rhythm: regular Heart Sounds: Present: S1 & S2. Absent: systolic murmur, diastolic murmur - Extremities Extremities: no ischemia, pulses intact, pulses symmetrical, normal temperature, normal color Peripheral Pulses: within normal limits - Abdominal General gastrointestinal: soft, non-tender, non-distended, normal bowel sounds - Integumentary Integumentary: Present: warm, dry - Psychiatric Psychiatric: cooperative - Neurologic Neurologic: moves all extremities - Constitutional Vitals: Vital Signs - 12hr 05/22/21 05/22/21 05/22/21 03:28 08:22 09:59 Temperature 99.8 F H 100.5 F H Pulse Rate 81 84 Respiratory 18 18 Rate Blood Pressure 141/56 114/42 O2 Sat by Pulse 100 100 99 Oximetry O2 Sat by Pulse 99 Oximetry [ Assessment] 05/22/21 14:12 Temperature Pulse Rate 80 Respiratory Rate Blood Pressure O2 Sat by Pulse Oximetry O2 Sat by Pulse Oximetry [ Assessment] - Labs CBC & Chem 7: 05/22/21 19:04 05/22/21 14:10 Labs: Abnormal lab results 05/21/21 05/22/21 Range/Units 16:16 14:10 Sodium 134 L (137-145) mmol/L BUN 36 H (7-17) mg/dL Creatinine 2.0 H (0.6-1.2) mg/dL Glucose 188 H (65-100) mg/dL POC Glucose 188 H (70-105) mg/dL HEART Score - HEART Score Troponin: Troponin T 0.065 ng/mL (0.00-0.029) H 04/20/21 03:32
[2021-05-22 20:17] LABS: Hematocrit 21.7 % (30.3-42.9); Hemoglobin 7.4 gm/dl (10.1-14.3)
[2021-05-22] MEDS: PRAVASTATIN 20 MG TAB PO SCH (21:29)
[2021-05-22] MEDS: LATANOPROST 0.005% OPHTH SOLN 2.5 ML OU SCH (21:31)
[2021-05-23] MEDS: INSULIN LISPRO 100 UNIT/ML SUB-Q SCH ×2 (00:35→06:41)
[2021-05-23] MEDS: LEVOTHYROXINE 25 MCG TAB PO SCH (06:41)
[2021-05-23] MEDS: INSULIN NPH/REGULAR 70/30 INJ SUB-Q SCH (09:30)
--- NOTE | 2021-05-23 09:57 | Progress Note ---
Assessment and Plan 1. Acute kidney injury: Vasomotor ROJELIO. ATN likely. Renal US negative for hydro. Baseline renal function is unknown. Monitor renal function. Non-oliguric. Creatinine level around 2. Avoid nephrotoxic agents. Meds dosage based on GFR. 2. FEN: Monitor lytes and volume status. 3. Acute hypoxemic respiratory failure: Extubated, re-intubated 04/24. Trached 05/07. On T-piece. 4. Acute encephalopathy: MRI brain negative. Seen by Neuro. 5. UTI: Treated. 6. Hypertension: Patient is on Amlodipine. 7. DM type 2. 8. Mild rhabdomyolysis: Improved. 9. Mildly complex R renal cyst: Further testing once patient is more stable. Explained patient's niece(05/18) at the bedside about follow up evaluation. Subjective: Patient was seen and examined at the bedside. RN at the bedside. Examination: General appearance: well-developed, appears stated age, trached on T-piece HEENT: atraumatic Neck: trached Respiratory: Coarse breath sounds heard Heart: S1S2, no murmur Abdomen: soft, obese, bowel sounds heard, NT, PEG tube noted Integumentary: no obvious rash Neurologic: opens eyes, not following any command Ext: no edema noted : hui catheter Subjective Date of service: 05/23/21 Principal diagnosis: Ac. resp failure; AMS; Hypoglycemia; ROJELIO; Hyperkalemia; DM II Objective - Vital Signs Vital signs: Vital Signs - 12hr 05/22/21 05/23/21 05/23/21 22:34 03:00 03:56 Temperature 98.5 F 97.7 F Pulse Rate 78 71 Respiratory 20 20 Rate Blood Pressure 143/58 111/50 O2 Sat by Pulse 99 100 Oximetry O2 Sat by Pulse 100 Oximetry [ Assessment] - Lab 05/22/21 19:04 05/22/21 14:10 Most recent lab results ABG pH 7.417 (7.320-7.450) 05/17/21 21:04 ABG O2 Saturation 97.0 (0-100) 05/17/21 21:04 Calcium 9.8 mg/dL (8.4-10.2) 05/22/21 14:10 Phosphorus 2.60 mg/dL (2.5-4.5) 04/22/21 08:00 Magnesium 2.10 mg/dL (1.7-2.3) 04/23/21 07:02 Urine Creatinine 104.7 mg/dL (0.1-20.0) H 05/18/21 06:45 Urine Sodium 81 mmol/L 05/18/21 06:45 Medications & Allergies - Medications Allergies/Adverse Reactions: Allergies No Known Allergies Allergy (Unverified 04/15/21 17:41) Home Medications: Home Medications Medication Instructions Recorded Confirmed Last Taken Type Betaxolol HCl [Betoptic S 0.25% 1 drop OU BID 04/16/21 04/16/21 Unknown History SUSP] Bimatoprost [Lumigan 0.01%] 1 drop OU QPM 04/16/21 04/16/21 Unknown History Brimonidine Tartrate [Brimonidine 5 ml OU BID 04/16/21 04/16/21 Unknown History Tartrate 0.2%] Furosemide [Lasix TAB] 40 mg PO QDAY 04/16/21 04/16/21 Unknown History Gabapentin [Neurontin] 300 mg PO Q8HR 04/16/21 04/16/21 Unknown History HYDROcodone/APAP 10-325 [Benld 1 each PO Q6HR PRN 04/16/21 04/16/21 Unknown History 10/325] Hydralazine HCl 50 mg PO Q4HR 04/16/21 04/16/21 Unknown History Insulin Aspart Prot/Insuln Asp 52 units SQ HS 04/16/21 04/16/21 Unknown History [Novolog Mix 70-30 Flexpen] Metoprolol [Lopressor] 25 mg PO BID 04/16/21 04/16/21 Unknown History Pravastatin [Pravachol] 20 mg PO QHS 04/16/21 04/16/21 Unknown History Promethazine [Phenergan] 25 mg PO Q6HR 04/16/21 04/16/21 Unknown History allopurinoL [Zyloprim] 150 mg PO QDAY 04/16/21 04/16/21 Unknown History Active Medications: Generic Name Dose Route Start Last Admin Trade Name Freq PRN Reason Stop Dose Admin Acetaminophen 650 mg 04/15/21 19:11 05/17/21 12:33 Acetaminophen 325 Mg Tab PO 650 mg Q6H PRN Administration Pain MILD(1-3)/Fever >100.5/SEXTON Albuterol 2.5 mg 05/09/21 13:16 05/16/21 09:40 Albuterol 2.5 Mg/3 Ml Nebu IH 2.5 mg Q6HRT PRN Administration Shortness Of Breath Amlodipine Besylate 2.5 mg 05/18/21 10:00 05/22/21 14:12 Amlodipine 5 Mg Tab PO 2.5 mg QDAY WOLFGANG Administration Lipase/Protease/Amylase 1 each 04/16/21 12:52 Lipase 10,500/Protease 25,000/Amylase 43,750 (Units) Dr Simpson FEEDTUBE PRN PRN For Clogged Feeding Tube Aspirin 81 mg 04/25/21 10:00 05/22/21 14:02 Aspirin 81 Mg Tab Chew PO 81 mg QDAY WOLFGANG Administration Bisacodyl 10 mg 04/17/21 11:01 05/03/21 09:50 Bisacodyl 10 Mg Rect Supp AL 10 mg QDAY PRN Administration Constipation Brimonidine Tartrate 1 drops 04/17/21 22:00 05/22/21 21:31 Brimonidine 0.15% Ophth Soln OU 1 drops BID WOLFGANG Administration Docusate Sodium 100 mg 04/29/21 15:00 05/22/21 21:29 Docusate Sodium 100 Mg/10 Ml Oral Liqd PO 100 mg BID WOLFGANG Administration Famotidine 20 mg 04/17/21 10:00 05/22/21 14:02 Famotidine 20 Mg Tab PO 20 mg DAILY WOLFGANG Administration Glycopyrrolate 1 mg 05/17/21 20:00 05/22/21 21:29 Glycopyrrolate 1 Mg Tab PO 1 mg TID WOLFGANG Administration Heparin Sodium (Porcine) 5,000 unit 04/15/21 22:00 05/22/21 21:30 Heparin 5,000 Unit/1 Ml Vial SUB-Q 5,000 unit Q12HR WOLFGANG Administration Hydralazine HCl 10 mg 04/16/21 18:00 05/20/21 23:43 Hydralazine 20 Mg/1 Ml Inj IV 10 mg Q4HR PRN Administration Hypertension Hydrophilic Ointment 1 applic 04/15/21 17:24 Lip Therapy Vaseline TP Q2HR PRN Dry Lips Insulin Human Isoph/Insulin Regular 25 unit 05/09/21 08:00 05/22/21 08:00 Insulin Nph/Regular 70/30 Inj SUB-Q Not Given BIDDIAB [facility] Insulin Human Lispro 0 unit 04/16/21 15:00 05/23/21 06:41 Insulin Lispro 100 Unit/Ml SUB-Q 3 unit Q6HR WOLFGANG Administration Protocol Latanoprost 1 drops 04/17/21 18:00 05/22/21 21:31 Latanoprost 0.005% Ophth Soln 2.5 Ml OU 1 drops QPM WOLFGANG Administration Levothyroxine Sodium 25 mcg 04/19/21 06:00 05/23/21 06:41 Levothyroxine 25 Mcg Tab PO 25 mcg DAILY@0600 WOLFGANG Administration Lorazepam 2 mg 05/13/21 09:30 Lorazepam 2 Mg/Ml Vial IV Q4H PRN Agitation Multi-Ingred Cream/Lotion/Oil/Oint 1 applic 04/15/21 17:24 05/17/21 21:31 Mineral Oil/Petrolatum, White Ophth Oint 3.5 Gm OU 1 applic Q4HR PRN Administration Dry Eye(s) Pravastatin Sodium 20 mg 04/19/21 22:00 05/22/21 21:29 Pravastatin 20 Mg Tab PO 20 mg QHS WOLFGANG Administration Scopolamine 1 each 04/20/21 18:00 05/20/21 10:36 Scopolamine Transdermal Patch 72 Hr TD 1 each Q3D WOLFGANG Administration Simple Syrup 15 ml 04/16/21 12:52 Simple Syrup 15 Ml FEEDTUBE PRN PRN Hypoglycemia Simple Syrup 30 ml 04/16/21 12:52 Simple Syrup 15 Ml FEEDTUBE PRN PRN Hypoglycemia Sodium Bicarbonate 325 mg 04/16/21 12:52 Sodium Bicarbonate 325 Mg Tab FEEDTUBE PRN PRN For Clogged Feeding Tube Sodium Chloride 10 ml 04/15/21 22:00 05/22/21 21:30 Sodium Chloride 0.9% 10 Ml Flush Syringe IV 10 ml BID WOLFGANG Administration Sodium Chloride 10 ml 04/15/21 19:11 05/19/21 06:38 Sodium Chloride 0.9% 10 Ml Flush Syringe IV 10 ml PRN PRN Administration LINE FLUSH Tamsulosin HCl 0.4 mg 04/25/21 14:00 05/22/21 14:04 Tamsulosin 0.4 Mg Cap PO 0.4 mg QDAY WOLFGANG Administration Timolol Maleate 1 drops 04/19/21 10:00 05/22/21 14:08 Timolol 0.5% Ophth Soln 5 Ml OU 1 drops QDAY WOLFGANG Administration
[2021-05-23] MEDS: TAMSULOSIN 0.4 MG CAP PO SCH (10:02)
[2021-05-23] MEDS: ASPIRIN 81 MG TAB CHEW PO SCH (10:02)
[2021-05-23] MEDS: DOCUSATE SODIUM 100 MG/10 ML ORAL LIQD PO SCH (10:02)
[2021-05-23] MEDS: FAMOTIDINE 20 MG TAB PO SCH (10:02)
[2021-05-23] MEDS: HEPARIN 5,000 UNIT/1 ML VIAL SUB-Q SCH (10:03)
[2021-05-23] MEDS: GLYCOPYRROLATE 1 MG TAB PO SCH (10:06)
[2021-05-23] MEDS: TIMOLOL 0.5% OPHTH SOLN 5 ML OU SCH (10:08)
[2021-05-23] MEDS: BRIMONIDINE 0.15% OPHTH SOLN OU SCH (10:08)
[2021-05-23] MEDS: amLODIPine 5 MG TAB PO SCH (10:10)
[2021-05-23 10:12] VITALS: BP 138/76
--- NOTE | 2021-05-23 11:02 | Discharge Summary ---
Providers - Providers Date of Admission: 04/15/21 19:11 Date of discharge: 05/23/21 Attending physician: OLGA CORBETT 04/15/21 19:06 Consult to Physician [CONS] Routine Comment: Consulting Provider: PEDRO MARIO Physician Instructions: Reason For Exam: Respiratory Failure 04/15/21 19:14 Consult to Physician [CONS] Routine Comment: Consulting Provider: JULIAN CADET Physician Instructions: Reason For Exam: rojelio 04/16/21 08:53 Consult to Dietitian/Nutrition [CONS] Routine Physician Instructions: Reason For Exam: Reason for Consult: Write/Manage Tube Feeding 04/16/21 09:21 Consult to Physician [CONS] Routine Comment: Consulting Provider: MATY DUNN Physician Instructions: Reason For Exam: ENCEPHALOPATHY 04/17/21 11:38 Consult to Physician [CONS] Routine Comment: Consulting Provider: IMANI MARTINEZ Physician Instructions: Reason For Exam: KUB concerning for ileus vs mechanical obstruction 04/19/21 08:00 Consult to Dietitian/Nutrition [CONS] Routine Physician Instructions: Assess nutrtn needs, initiate, modify, manage TF Reason For Exam: Reason for Consult: Write/Manage Tube Feeding Reason for Consult: Write/Manage Tube Feeding 04/23/21 10:00 Occupational Therapy Evaluate and Treat [CONS] Routine Comment: Reason For Exam: ROM Physical Therapy Evaluation and Treat [CONS] Routine Comment: Reason For Exam: Debility 04/23/21 10:37 Consult to Physician [CONS] Routine Comment: Consulting Provider: RONALDO DAVID Physician Instructions: Reason For Exam: ams 04/27/21 09:13 Consult to Physician [CONS] Routine Comment: Consulting Provider: MARIEL JOHN Physician Instructions: Reason For Exam: sepsis 04/28/21 10:13 Consult to Physician [CONS] Routine Comment: Consulting Provider: IMANI MARTINEZ Physician Instructions: Reason For Exam: resp failure, needs trach 05/05/21 19:09 Consult to Wound/ET Nurse [CONS] Routine Reason For Exam: wound eval, sacrum 05/17/21 12:05 Occupational Therapy Evaluate and Treat [CONS] Routine Comment: Reason For Exam: Debility 05/17/21 12:06 Physical Therapy Evaluation and Treat [CONS] Routine Comment: Reason For Exam: Debility 06/18/21 11:38 Speech Therapy Evaluation and Treat [CONS] Routine Reason For Exam: pt w/trach, confer w/respiratory for recs Primary care physician: HOST/HOSTESS HEAD Hospitalization Condition: Fair Pertinent studies: Chest x-rays, abdominal x-rays, head CT, brain MRI, neck CT, 2D echocardiogram Hospital course: Brief history This is a 80-year-old female with hypertension, diabetes mellitus, NC, breast cancer s/p double mastectomy, and a TIA who presented with hypoglycemia and altered mental status on 04/15 via EMS. Per EMS patient was unresponsive on their arrival and her blood glucose was 38 and she received 1 amp of dextrose patient continued to be unresponsive and only moaned with her eyes deviating to the left. Work-up in the emergency department revealed SIRS, symptomatic bradycardia, acute metabolic encephalopathy, acute hypoxic respiratory failure, elevated TSH, hyperglycemia, hyponatremia, hyperkalemia, acute kidney injury with ATN, and rhabdomyolysis. Daily clinical course; 04/16: Neurology consulted, COVID-19 PCR negative, D10 drip decreased and e ventually discontinued by [facility] and started on D5W for 1 L. Hydralazine as needed. Patient had hyper kalemia today and was treated with D50, insulin and Kayexalate. This time examination patient is on assist control tidal volume 450, rate of 16, PEEP of 6 and 25% FiO2. 04/17: Patient started on low-dose beta-angel per cardiology, CPAP trial again per [facility], BUN/creatinine holding steady and hypochloremia/hyponatremia slightly improved and hypokalemia has resolved. This morning a KUB was obtained which was concerning for ileus versus mechanical obstruction and surgery was consulted. Patient was made n.p.o. and NG tube placed to wall suction. Patient was given suppository. Per RN patient did not have a BM even though she was given Kayexalate yesterday. Will obtain a KUB in the a.m. Neurology was consulted yesterday and will await further recommendations. Nephew updated at bedside today, Carlos Romero. 04/18: Neurology has ordered EEG/MRI B, [facility] continues to wean MV. Persistent low grade temperature so we will obtain BCx2/UA. Patient has improving leukocytosis, hyponatremia, renal function studies and hypochloremia. She has hypokalemia today which is being repleted. Surgery has signed off today and has okayed resumption of TF. [facility] will trial CPAP for longer today and plans to attempt extubation in AM. Family has requested transfer to [facility] and Dr. Gordon will attempt to contact transfer center. I updated her nephew, Carlos Romero over the phone today abouyt current events and update on transfer ([facility] will conduct a utilization review) 04/19: This morning patient is on CPAP trial at the time of examination, noted to be hypertensive and metoprolol increased to home dose, started on synthroid by [facility], lantus started re hyperglycemia, MRI completed with no acute findings. Severe hypokalemia (repleted and Mg pending). [facility] will contact CPAP trial again today with possible trial extubation tomorrow. 04/20: Patient's leukocytosis and kidney function tests continue to improve. Patient is hypertensive overnight we will restart home hydralazine. [facility] plans to extubate patient today. Family is attempting to transfer to another facility. EEG pending, RT will atmept to contact medical technologist microbiology. Urine culture grew gram negative rods. Increase in lantus 04/21: Increase in Lantus, repleted phos. Patient has started this afternoon and was given racemic epinephrine and started on steroids. Patient will have BiPAP as needed. We will recheck BMP in the a.m. renal function studies continues to decrease. Patient has been hypertensive on evaluation regimen has been changed. 04/22: Lantus increased for hyperglycemia and add amlodipine for better BP control. Patient is on steroids. OT suctioned by RN with catheter in oral care kit and received copious amounts of secretions. Cr continues to decrease. Culture grew Pseudomonas and was changed in accordance to sensitivity. Hui removed today after clearance from nephrology. 04/23: MRI of the brain was done and unremarkable. Will obtain reconsult to nephrology for further assistance as patient remains in profound encephalopathy despite improvement of blood sugar. Will repeat chest x-ray as patient does have significant congestion physical exam. Tube feeds still ongoing. Continue aspiration precautions. Continue antibiotics when completed for Pseudomonas management 04/24: Neurology input noted, patient unfortunately with no improvement mental status [place], continues with congestion, will defer with [employer] for lasix in the setting of renal failure. will give kayexlate for hyperkalemia, still moans and groans, mittens in place. 04/25: Patient currently intubated, on restraints for safety, Profund encephalopathy persist, although awake she is not following any commands, Call placed to [facility] to see if they will accept transfer for ENT evaluation, while CT neck was negative, it was degraded by motion and unable to determent why patient had this stridor, Racemic Epinephrine was given, [facility] is on ICU saturation, but will call back with an ENT to discuss case. Renal function mildly worse, continue to monitor. Per cardiology, no further arrhythmias noted since admission. Given short durati on of atrial fibrillation, along with pt's age, renal fxn, and other co- morbidities,...will resume additional medical therapies for underlying severe multi-vessel CAD (bASA & Plavix). Pt has previously declined intervention of known lesions as per her Primary [employer]. 04/26: Now with febrile illness, ?developing infection, start on empiric abx, check lactate level, blood cultures, continue management per Electronics Technology Department Chair, Monitor leukocytosis, agree with Trach, family updated about denials in transfer request from outside hospitals. 04/27: WBC improving some, still with fever despite antibotics, ID consulted. CXR clear, continue current management, Trach will be planned if ok with family. Blood sugar remains elevated, will adjust insulin LANTUS to 40 units. Patient had previously completed Cefepime. Mental status remains unchanged, still moves upper ext. continue restraints 04/28: Continue supportive care. No new fever noted. Critical care physician will determine if patient should be have a trial of extubation again or if we should proceed straight to trach. Again continue to monitor mental status for complete improvement. 04/29: Per Electronics Technology Department Chair discussion with family, will proceed to Tracheostomy, Patients mental status still fluctuating, Continue current management. Surgeon consulted. 04/30: General surgery consulted for trach, continue to trend CBC and BMP. Kidney function slightly worsened today. Increase in Lantus. Tmax 100.2, per ID will consider imaging if leukocytosis remains elevated with fevers. Plavix held for possible tracheostomy next week. 05/01: Patient fever curve is trending down with improving leukocytosis. Patient renal function worsened today. She remains hyperglycemic and her Lantus was increased to her home dose of Novolin 70/30. Patient was rate controlled yesterday due to T-max of 101. She remains on CMV tidal volume 450, rate of 10, PEEP of 6 and 30% FiO2. We will increase the water flushes given slight hypernatremia. Dr. Andrea updated nephew (Carlos) at bedside. CPAP trails. 05/02: Patient's hypernatremia and hyperchloremia slightly worsened and femur fractures were increased. Kidney functions remain the same however BUN is in the 100s. Nephrology is following. Hui catheter was removed. Awaiting trach placement with possibility on Friday. 05/03: Patient grew Earline in her urine culture however per ID and the Hui was already exchanged. Patient is on cefepime and Flagyl. Plavix still on hold awaiting trach. CCM started the patient on half-normal saline at 75 mL/h for 2 L related to azatoma and hypernatremia. Patient mental status continues to wax and wane. Creatinine is 3.1 today from 3.4 yesterday. Patient had a bowel movement today. Patient remains hyperglycemic and Lantus was changed from a.m. to p.m.. 05/04: Patient's renal function is improving, surgery obtain consent for trach/PEG scheduled for 05/07, antibiotics to end tomorrow. We will obtain BMP in the a.m. Lantus dosage change from AC to at bedtime in hopes of better glycemic control. 05/05: Patient Lantus dose is changed to twice daily in hopes of better glycemic control. Awaiting surgical procedure hopefully on Friday. Patient's BUN/creatinine improved and hypernatremia has resolved. 05/06: Patient has slight hypernatremia and hyperchloremia and improvement to BUN/creatinine. Better glycemic control. Awaiting trach on Friday. NGT was displaced but now replaced and TF resumed. 05/07 This is a 80-year-old female with HTN, DM, NC, breast CA s/p double mastectomy, TIA who presented with hypoglycemia, AMS who was admitted with SIRS, symptomatic bradycardia, acute metabolic encephalopathy, acute hypoxic respiratory failure, elevated TSH, hyperglycemia, hyponatremia, hypokalemia, ROJELIO and rhabdomyolysis. She is for Trach and PEG today. 05/08: s/p trach and PEG placement yesterday. cont to monitor, wean off from vent as tolertaed 05/09: Patient started on tube feeding and tolerating well. Currently on CPAP setting with newly placed trach. Discussed with case management and patient would need placement. Continue supportive care and follow clinically. 05/10: Continue supportive care, patient is tolerating tube feeding diet. Remains on CPAP with trach. Pending LTAC placement. 05/11: Continue supportive care, patient is tolerating tube feeding diet. Remains on CPAP with trach. Plan to wean off from Vent as tolerates and to place on t-piece. 05/12; Patient placed on t-piece today, tolerating TF, cont to monitor clinically. follow CBC/BMP 05/13: Remains on t-piece, plan to wean off to wall T-piece. If unable to wean off from vent then patient will need criteria for LTAC upon her insurance requirement. If she tolerates weaning trial and able to maintain T-piece then she will be discharged back to [facility]. Ordered for a.m. labs. Continue to follow clinically with supportive care. 05/14: Pending placement. Patient back on Mechanical ventilation today with trach tube. Hemoglobin 7.0. Will transfuse 1 unit packed RBC. Continue to monitor clinically. 05/15: Pending placement, [facility] continues to trial patient on trach collar for as long as tolerated. Patient is H/H improved to 8/24.6 after 1 unit PRBC. Renal function continues to fluctuate and is currently at CR 2/BUN 42. Patient is slightly hyperkalemic today at 5.3 and received 30 g of Kionex. We will obtain a.m. BMP and continue to trend CBC. Patient is hypertensive and hydralazine dose has been increased. 05/16: Patient noted to have hyperkalemia again today and was treated. Patient continued T-piece on 20% FiO2 for over 24 hours. This afternoon patient was noted to be off of trach collar and SPO2 was still in the mid 90s. Trach collar was replaced. We will remove Hui catheter and BladderScan the patient every 4 hours. 05/17: Patient has been started on midodrine and given approximately 750 ML IV fluid bolus in response to hypotension. Will receive normal saline at 75 for another 2 L. Has a standing order for bladder scans every 4 and straight cath if needed. Patient will be transferred to telemetry today. 05/18: Patient is on the floor, patient is shaking her head to answering questions and moving her legs. Patient is lethargic at times. 05/19: Patient seen on floor, patient is awake, has some secretions, spoke with nurse to suction. Patient is shaking her head yes and no to my questions. 05/20: Patient seen and examined, case management and family at the bedside. No acute distress overnight, there was some secretions, and asked the nurse to suction. Repeat chest x-ray does not show any new abnormalities 05/21: pt seen with bedside, awake. No respiratory distress, spoke with bedside nurse, patient was suction this morning. On 5 L via trach. 05/22: Patient remains on trach tube with 5 L of O2. Clinically stable. Per CM family requesting for hospice placement. Wait for family to sign DNR and hospice consent. 05/23/21: discharge patient with hospice care. Family signed DNR and hospice consent. Disposition: [facility] HOSPICE[facility]MEDICAL FACILITY Final Discharge Diagnosis (Prints w/discharge instructions): Acute metabolic encephalopathy-persist. Acute hypoxic respiratory failure (extubated 04/20)- Re- intubated secondary to Stridor and paradoxical breathing. - s/p trach and PEG. First-degree heart block. Resolved ileus versus mechanical obstruction. Acute kidney injury with vasomotor nephropathy. UTI, Pseudomonas/ Earline. Mild rhabdomyolysis. Hypertension. Diabetes mellitus with hyperglycemia on admission. CAD with Ef 45%-50%. Hypothyroidism with Elevated TSH. Chronic illness with debilitymyopathy. Obesity. Urinary retention s/p hui Time spent for discharge: 38 minutes Core Measure Documentation - Palliative Care Palliative Care/ Comfort Measures: Hospice Care - Core Measures Any of the following diagnoses?: history only Exam - Physical Exam Narrative exam: General appearance: Present: no acute distress, - EENT Eyes: Present: PERRL, EOM intact - Neck Neck: Present: normal ROM, trach in place - Respiratory Respiratory effort: normal Respiratory: bilateral: diminished - Cardiovascular Rhythm: regular Heart Sounds: Present: S1 & S2. Absent: systolic murmur, diastolic murmur - Extremities Extremities: no ischemia, pulses intact, pulses symmetrical, normal temperature, normal color Peripheral Pulses: within normal limits - Abdominal General gastrointestinal: soft, non-tender, non-distended, normal bowel sounds - Integumentary Integumentary: Present: warm, dry - Psychiatric Psychiatric: unable to assess - Neurologic Neurologic: does not follow commend - Constitutional Vitals: Temp Pulse Resp BP Pulse Ox 98.1 F 87 20 138/76 98 05/23/21 07:31 05/23/21 10:10 05/23/21 07:31 05/23/21 10:10 05/23/21 07:31 Plan Activity: up only with assistance Diet: other (TF) Additional Instructions: Patient care and Mx will directed by at [facility] Follow up with: PRIMARY CARE, [Primary Care Provider] - 7 Days
[2021-05-23] MEDS: SCOPOLAMINE TRANSDERMAL PATCH 72 HR TD SCH (13:40)
== END 2021-05-23 13:40 | disposition hospice, inpatient (51) | DRG 4 ==
LOC: ED 16:57 → CC1 19:11 → 4A 05-17 18:59
PROVIDERS: ADMIT Internal Medicine; ATTEND Internal Medicine
PROC: 5A1955Z Respiratory Ventilation, Greater than 96 Consecutive Hours (ICD-10-PCS; principal; 2021-04-15)
PROC: 0BH17EZ Insertion of Endotracheal Airway into Trachea, Via Natural or Artificial Opening (ICD-10-PCS; 2021-04-15)
PROC: 4A033R1 Measurement of Arterial Saturation, Peripheral, Percutaneous Approach (ICD-10-PCS; 2021-04-15)
PROC: 5A09357 Assistance with Respiratory Ventilation, Less than 24 Consecutive Hours, Continuous Positive Airway Pressure (ICD-10-PCS; 2021-04-21)
PROC: 5A09357 Assistance with Respiratory Ventilation, Less than 24 Consecutive Hours, Continuous Positive Airway Pressure (ICD-10-PCS; 2021-04-23)
PROC: 5A1955Z Respiratory Ventilation, Greater than 96 Consecutive Hours (ICD-10-PCS; 2021-04-24)
PROC: 0BH17EZ Insertion of Endotracheal Airway into Trachea, Via Natural or Artificial Opening (ICD-10-PCS; 2021-04-24)
PROC: 0B113F4 Bypass Trachea to Cutaneous with Tracheostomy Device, Percutaneous Approach (ICD-10-PCS; 2021-05-07)
PROC: 0DH63UZ Insertion of Feeding Device into Stomach, Percutaneous Approach (ICD-10-PCS; 2021-05-07)
PROC: 0BJ08ZZ Inspection of Tracheobronchial Tree, Via Natural or Artificial Opening Endoscopic (ICD-10-PCS; 2021-05-07)
PROC: 30233N1 Transfusion of Nonautologous Red Blood Cells into Peripheral Vein, Percutaneous Approach (ICD-10-PCS; 2021-05-14)
DX: A41.9 Sepsis, unspecified organism (principal); J96.01 Acute respiratory failure with hypoxia; N17.0 Acute kidney failure with tubular necrosis; I21.4 Non-ST elevation (NSTEMI) myocardial infarction; G92 Toxic encephalopathy; M62.82 Rhabdomyolysis; N39.0 Urinary tract infection, site not specified; E87.1 Hypo-osmolality and hyponatremia; K56.7 Ileus, unspecified; Z20.822 Contact with and (suspected) exposure to COVID-19; E11.649 Type 2 diabetes mellitus with hypoglycemia without coma; E87.5 Hyperkalemia; R00.1 Bradycardia, unspecified; E66.9 Obesity, unspecified; I10 Essential (primary) hypertension; I25.10 Atherosclerotic heart disease of native coronary artery without angina pectoris; E03.9 Hypothyroidism, unspecified; I44.0 Atrioventricular block, first degree; E11.22 Type 2 diabetes mellitus with diabetic chronic kidney disease; N18.9 Chronic kidney disease, unspecified; I12.9 Hypertensive chronic kidney disease with stage 1 through stage 4 chronic kidney disease, or unspecified chronic kidney disease; N28.1 Cyst of kidney, acquired; R53.81 Other malaise; R33.9 Retention of urine, unspecified; F01.50 Vascular dementia, unspecified severity, without behavioral disturbance, psychotic disturbance, mood disturbance, and anxiety; G40.901 Epilepsy, unspecified, not intractable, with status epilepticus; Z68.33 Body mass index [BMI] 33.0-33.9, adult; Z85.3 Personal history of malignant neoplasm of breast; Z79.899 Other long term (current) drug therapy; Z90.10 Acquired absence of unspecified breast and nipple; Z90.49 Acquired absence of other specified parts of digestive tract
CPT/HCPCS: 31720; 36415; 36600; 70450; 70490; 70551; 71045; 74018; 76770; 80048; 80053; 80061; 80076; 80202; 80320; 81001; 82140; 82550; 82553; 82570; 82805; 82962; 83735; 83880; 84100; 84132; 84145; 84300; 84436; 84443; 84481; 84484; 85007; 85014; 85018; 85025; 85027; 85610; 85730; 86850; 86900; 86901; 86920; 87040; 87070; 87076; 87086; 87186; 87205; 93005; 93306; 94002; 94003; 94640; 94660; 95819; 96365; 96375; G0378; A9270-GY; G0480; J0330; J0360; J0610; J0692; J0696; J1644; J1815; J1940; J1953; J2060; J2250; J2704; J2920; J3010; J3370; J3475; J3480; J7030; J7040; J7042; J7050; P9016; U0003